=== PATIENT | male | born 1970 | race Caucasian/White ===

== ENCOUNTER 2017-07-09 11:46 | Emergency (ER) | payer OTHER, SELFPAY ==
[2017-07-09] MEDS ORDERED: METHYLPREDNISOLONE 125 MG INJ ONE (12:40)
[2017-07-09] MEDS ORDERED: ALBUTEROL 2.5 MG/3 ML NEB SOL ONE ×2 (12:40→14:35)
[2017-07-09] MEDS ORDERED: IPRATROPIUM BROM 0.5MG/2.5ML ONE (12:41)
--- NOTE | 2017-07-09 12:43 | RAD REPORT ---
EXAM DESCRIPTION: RAD - Chest Single View - 07/09/2017 12:38 pm CLINICAL HISTORY: Cough, shortness of breath COMPARISON: None. TECHNIQUE: AP portable chest image was obtained 1234 hours . FINDINGS: Lungs are clear. Heart and vasculature are normal. No measurable pleural effusion and no p neumothorax. No gross bony abnormality seen. No acute aortic findings suspected. IMPRESSION: No acute cardiopulmonary process.
--- NOTE | 2017-07-09 13:07 | RAD REPORT ---
EXAM DESCRIPTION: CT - Soft Tissue Neck Wo Contr CLINICAL HISTORY: Difficulty swallowing. COMPARISON: None. TECHNIQUE All CT scans are performed using dose optimization technique as appropriate and may includ e automated exposure control or mA/KV adjustment according to patient size. FINDINGS: The exam is very limited due to lack of IV contrast. Nasopharyngeal tissues are normal in appearance. Fossa Rosenmller are normal. Parapharyngeal fat triangles are symmetric. Tongue base structures are normal. Fluid is noted in both mastoid air cells, greater on the left. Soft tissue measuring roughly 16 x 19 mm is noted in the region of the left piriform sinus. The left piriform sinuses not well aerated. This is not well assessed due to lack of IV contrast. Few mildly prominent lymph nodes are seen along both jugular chains. IMPRESSION: Examination is limited due to lack of intravenous contrast material. Ill-defined soft tissue is identified in the left piriform sinus measuring approximately 16 x 19 mm. Given the limitations of this examination, advise followup direct visualization of this region. Bilateral mastoid fluid, greater on the left, suggesting mastoiditis.
[2017-07-09 13:23] LABS: Absolute Lymphocytes (CBC) 2.6 K/uL (0.7-4.9); Absolute Neutrophil 8.3 K/uL (1.8-8.0); Eosinophils % 2.3 % (0-4.4); Hematocrit 52.8 % (39.6-49.0); Lymphocytes % 21.1 % (15.3-44.8); MCH 30.8 pg (27.0-35.0); MCV 92.6 fL (80-100); MPV 9.2 fL (7.6-11.3); Monocytes % 8.1 % (3.3-12.3)
[2017-07-09 13:33] LABS: BUN Blood Urea Nitrogen 10 mg/dL (6-20); Bicarbonate 29 mEq/L (21-31); Glomerular Filtration Rate > 90 mL/min (=/>90); Glucose Level 94 mg/dL (65-120); Potassium 4.3 mEq/L (3.6-5.0); Sodium Level 139 mEq/L (135-145)
[2017-07-09] MEDS ORDERED: CLINDAMYCIN 600MG/D5W 600 MG/50 ML BAG IV ONE (14:01)
[2017-07-09 14:24] LABS: Urine Blood 1+ (NEG); Urine Glucose NEGATIVE (NEG); Urine Protein NEGATIVE (NEG); Urine Specific Gravity 1.025 (1.005-1.030)
--- NOTE | 2017-07-09 15:23 | ER ---
Nurse's Notes [facility] Name: Akin Pugh Age: 47 yrs Sex: Male : 1970 Arrival Date: 07/09/2017 Time: 11:49 Bed 20 Private MD: Diagnosis: Asthma;Mass of Hypopharynx Presentation: 07/09 11:57 Presenting complaint: states: he is having a hard time breathing, started a couple tw2 of days ago, thought it was my asthma, pt states "i have a knot in my throat, it hurts to swallow and my ear hurts". Transition of care: patient was not received from another setting of care. Onset of symptoms was July 09, 2017. Care prior to arrival: None. 11:57 Method Of Arrival: Ambulatory tw2 11:57 Acuity: PAO 3 tw2 Historical: - Allergies: 11:59 Iodine; tw2 - PMHx: 11:59 Asthma; tw2 - PSHx: 11:59 Appendectomy; Knee surgery; tw2 - Immunization history:: Adult Immunizations up to date. - Social history:: Smoking status: Patient uses tobacco products, smokes one pack cigarettes per day. - Family history:: not pertinent. - Hospitalizations: : No recent hospitalization is reported. Screenin:44 Abuse screen: Denies threats or abuse. Denies injuries from another. Nutritional ch screening: No deficits noted. Tuberculosis screening: No symptoms or risk factors identified. Fall Risk None identified. Assessment: 12:15 Reassessment: Patient appears in no apparent distress at this time. PT STATES HE DOES ch NOT WANT THE TECH TO START HIS IV BECAUSE SHE WENT TOO FAR BACK WITH THE FLU SWAB. I WILL START PT IV. 12:44 General: Appears in no apparent distress. comfortable, Behavior is calm, cooperative, ch appropriate for age. Pain: Complains of pain in throat Pain currently is 7 out of 10 on a pain scale. Cardiovascular: Heart tones S1 S2 present Rhythm is regular. Respiratory: Airway is patent Respiratory effort is even, unlabored, Breath sounds are coarse bilaterally. Breath sounds with wheezes. Derm: Skin is pink, warm \\T\\ dry. 13:03 Reassessment: PT RETURNED FROM CT. 13:19 Reassessment: Patient appears in no apparent distress at this time. No changes from previously documented assessment. Patient and/or family updated on plan of care and expected duration. Pain level reassessed. Patient is alert, oriented x 3, equal unlabored respirations, skin warm/dry/pink. 14:28 Reassessment: Patient appears in no apparent distress at this time. Patient and/or ch family updated on plan of care and expected duration. Pain level reassessed. Patient is alert, oriented x 3, equal unlabored respirations, skin warm/dry/pink. erp in room discussing plan of care with pt. pt and family verb understanding. pt tolerated iv antibiotic well. 14:50 Reassessment: Patient appears in no apparent distress at this time. Patient and/or ch family updated on plan of care and expected duration. Pain level reassessed. Patient is alert, oriented x 3, equal unlabored respirations, skin warm/dry/pink. family calls office to schedule and appointment. the office states they have no appointments available. family member tells me this angrily, and states "you need to fix this." i tell pt and family I will notify my physician and try to contact the office in a few minuets. 14:58 Reassessment: Patient appears in no apparent distress at this time. I contact Dr. Basilio office to attempt to schedule an appointment. physician is fully booked for tomorrow. awaiting dr basilio to return page and approve seeing pt tomorrow in his office instead of a transfer. pt and family verb understanding of wait. 15:14 Reassessment: Patient appears in no apparent distress at this time. Patient and/or ch family updated on plan of care and expected duration. Pain level reassessed. Patient is alert, oriented x 3, equal unlabored respirations, skin warm/dry/pink. awaiting return call from Dr. Basilio. 15:43 Reassessment: Patient appears in no apparent distress at this time. No changes from previously documented assessment. Patient and/or family updated on plan of care and expected duration. Pain level reassessed. Patient is alert, oriented x 3, equal unlabored respirations, skin warm/dry/pink. Dr. Basilio returns our call, pt is scheduled for 1100 tomorrow. pt and family verb understanding. Vital Signs: 11:59 BP 145 / 94; Pulse 90; Resp 18; Temp 98.7(O); Pulse Ox 97% on R/A; Weight 108.86 kg tw2 (R); Height 6 ft. 0 in. (182.88 cm); Pain 8/10; 13:22 BP 143 / 76; Pulse 71; Resp 16; Pulse Ox 99% on Nebulizer Mask; ch 14:28 BP 132 / 64; Pulse 89; Resp 14; Temp 98.7(O); Pulse Ox 99% on R/A; Pain 6/10; ch 15:44 BP 148 / 71; Pulse 81; Resp 16; Temp 98.2; Pulse Ox 99% on R/A; Pain 0/10; ch 11:59 Body Mass Index 32.55 (108.86 kg, 182.88 cm) tw2 ED Course: 11:49 Patient arrived in ED. rg4 11:58 Triage completed. tw2 11:59 Arm band placed on. tw2 12:08 Jason Anderson MD is Attending Physician. rn 12:24 Flu and/or RSV swab sent to lab. Strep swab sent to lab. tm3 12:36 X-ray completed. Portable x-ray completed in exam room. Patient tolerated procedure ml well. 12:38 XRAY Chest (1 view) In Process Unspecified. EDMS 12:39 Xiomy Vásquez, RN is Primary Nurse. ch 12:44 Patient has correct armband on for positive identification. Placed in gown. Bed in low ch position. Call light in reach. Side rails up X 1. 12:44 No provider procedures requiring assistance completed. ch 12:53 CT completed. Patient tolerated procedure well. Patient moved to CT via wheelchair. sj Patient moved back from CT. 12:55 Soft Tissue Neck Wo Contr In Process Unspecified. EDMS 13:20 Inserted saline lock: 20 gauge in right hand, using aseptic technique. Blood collected. ch 15:44 Pulse ox on. NIBP on. Warm blanket given. ch 15:44 IV discontinued, intact, bleeding controlled, No redness/swelling at site. Pressure ch dressing applied. Administered Medications: 12:50 Drug: SOLU-Medrol 125 mg Route: IVP; Site: right hand; ch 14:10 Follow up: Response: No adverse reaction; Marked relief of symptoms ch 12:50 Drug: Albuterol - atroVENT (3:1) (2.5 mg - 0.5 mg) 3 ml Route: Nebulizer; ch 14:10 Follow up: Response: No adverse reaction; Marked relief of symptoms 14:09 Drug: Clindamycin 600 mg Route: IVPB; Infused Over: 30 mins; Site: right hand; 14:45 Follow up: IV Status: Completed infusion 14:34 Drug: Albuterol 2.5 mg Route: Inhalation; iw Outcome: 15:22 Discharge ordered by . rn 15:46 Discharged to home ambulatory, with family. 15:46 Condition: improved 15:46 Discharge instructions given to patient, family, Instructed on discharge instructions, follow up and referral plans. no drinking with medication, medication usage, Demonstrated understanding of instructions, follow-up care, medications, Prescriptions given X 3. 15:46 Patient left the ED. Signatures: Dispatcher [employer] Xiomy Beaulieu RN JEAN Mosqueda, Ramu tm3 Kofi, Flor Alanis RN JEAN iw Loli Bruce Roman, MD MD rn Wise, JEAN Holguin RN tw2 Mavis Dahl rg4 Corrections: (The following items were deleted from the chart) 12:00 11:57 Presenting complaint: states: he is having a hard time breathing, started a tw2 couple of days ago, thought it was my asthma tw2
--- NOTE | 2017-07-09 15:23 | EDPHYS ---
Physician Documentation [facility] Name: Akin Pugh Age: 47 yrs Sex: Male : 1970 Arrival Date: 07/09/2017 Time: 11:49 Bed 20 Private MD: ED Physician Jason Anderson HPI: 07/09 12:50 This 47 yrs old Male presents to ER via Ambulatory with complaints of rn Breathing Difficulty. 12:50 The patient has shortness of breath at rest, with light activity. Onset: The rn symptoms/episode began/occurred 4 day(s) ago. Duration: The symptoms are continuous. The patient's shortness of breath is aggravated by exertion, light activity. Severity of symptoms: At their worst the symptoms were moderate in the emergency department the symptoms are unchanged. The patient has experienced similar episodes in the past. Reports hx of asthma, + sob and trouble breathing for 4 days, slowly getting worse, no fever, + non-productive cough, feel "knot in throat". . Historical: - Allergies: 11:59 Iodine; tw2 - PMHx: 11:59 Asthma; tw2 - PSHx: 11:59 Appendectomy; Knee surgery; tw2 - Immunization history:: Adult Immunizations up to date. - Social history:: Smoking status: Patient uses tobacco products, smokes one pack cigarettes per day. - Family history:: not pertinent. - Hospitalizations: : No recent hospitalization is reported. ROS: 12:50 Constitutional: Negative for fever, chills, and weight loss, Eyes: Negative for injury, rn pain, redness, and discharge, Neck: Negative for injury, pain, and swelling, Cardiovascular: Negative for chest pain, palpitations, and edema, Respiratory: Negative for pleuritic chest pain Abdomen/GI: Negative for abdominal pain, nausea, vomiting, diarrhea, and constipation, MS/Extremity: Negative for injury and deformity, Skin: Negative for injury, rash, and discoloration, Neuro: Negative for headache, weakness, numbness, tingling, and seizure. Exam: 12:50 Constitutional: This is a well developed, well nourished patient who is awake, alert, rn and in no acute distress. Head/Face: Normocephalic, atraumatic. Eyes: Pupils equal round and reactive to light, extra-ocular motions intact. Lids and lashes normal. Conjunctiva and sclera are non-icteric and not injected. Cornea within normal limits. Periorbital areas with no swelling, redness, or edema. ENT: Nares patent. No nasal discharge, no septal abnormalities noted. Oropharynx with no redness, swelling, or masses, exudates, or evidence of obstruction, uvula midline. Mucous membranes moist. UNclear if stridor or transmitted from lower lungs Neck: + non-tender cervical LAD Cardiovascular: Regular rate and rhythm with a normal S1 and S2. No gallops, murmurs, or rubs. Normal PMI, no JVD. No pulse deficits. Respiratory: Poor inspiratory air movement, no wheezing, mild tachypnea Abdomen/GI: Soft, non-tender, with normal bowel sounds. No distension or tympany. No guarding or rebound. No evidence of tenderness throughout. MS/ Extremity: Pulses equal, no cyanosis. Neurovascular intact. Full, normal range of motion. Equal circumference. Neuro: Awake and alert, GCS 15, oriented to person, place, time, and situation. Cranial nerves II-XII grossly intact. Motor strength 5/5 in all extremities. Sensory grossly intact. Vital Signs: 11:59 BP 145 / 94; Pulse 90; Resp 18; Temp 98.7(O); Pulse Ox 97% on R/A; Weight 108.86 kg tw2 (R); Height 6 ft. 0 in. (182.88 cm); Pain 8/10; 13:22 BP 143 / 76; Pulse 71; Resp 16; Pulse Ox 99% on Nebulizer Mask; ch 14:28 BP 132 / 64; Pulse 89; Resp 14; Temp 98.7(O); Pulse Ox 99% on R/A; Pain 6/10; ch 15:44 BP 148 / 71; Pulse 81; Resp 16; Temp 98.2; Pulse Ox 99% on R/A; Pain 0/10; ch 11:59 Body Mass Index 32.55 (108.86 kg, 182.88 cm) tw2 MDM: 12:08 Patient medically screened. rn 14:31 ED course: Consulted with Dr. Cameron at [facility], ENT, states doesn't need emergent rn review, recommended outpt f/u tomorrow in his clinic, patient has improved now with time, steroids, and neb treatments, no stridor, improved air movement, seems much more comfortable, states feels better, will dc home with steroids/inhaler/abx and ENT f/u tomorrow. . 15:21 Differential diagnosis: asthma, pharyngeal mass, hypopharynx mass. Data reviewed: vital rn signs, nurses notes, lab test result(s), radiologic studies, CT scan, plain films, and as a result, I will discharge patient. Counseling: I had a detailed discussion with the patient and/or guardian regarding: the historical points, exam findings, and any diagnostic results supporting the discharge/admit diagnosis, lab results, radiology results, the need for outpatient follow up, to return to the emergency department if symptoms worsen or persist or if there are any questions or concerns that arise at home. Response to treatment: the patient's symptoms have markedly improved after treatment, and as a result, I will discharge patient. 07/09 12:14 Order name: CBC with Diff; Complete Time: 13:31 07/09 12:14 Order name: Basic Metabolic Panel; Complete Time: 13:48 07/09 12:14 Order name: Strep; Complete Time: 13:13 rn 07/09 12:14 Order name: Flu; Complete Time: 13:13 rn 07/09 12:59 Order name: Throat Culture EDMS 07/09 13:44 Order name: Urine Dipstick--Ancillary (enter results) 07/09 12:14 Order name: IV Start; Complete Time: 13:23 rn 07/09 12:14 Order name: XRAY Chest (1 view); Complete Time: 13:13 07/09 12:18 Order name: Soft Tissue Neck Wo Contr; Complete Time: 13:13 EDMS Administered Medications: 12:50 Drug: SOLU-Medrol 125 mg Route: IVP; Site: right hand; ch 14:10 Follow up: Response: No adverse reaction; Marked relief of symptoms ch 12:50 Drug: Albuterol - atroVENT (3:1) (2.5 mg - 0.5 mg) 3 ml Route: Nebulizer; ch 14:10 Follow up: Response: No adverse reaction; Marked relief of symptoms ch 14:09 Drug: Clindamycin 600 mg Route: IVPB; Infused Over: 30 mins; Site: right hand; ch 14:45 Follow up: IV Status: Completed infusion ch 14:34 Drug: Albuterol 2.5 mg Route: Inhalation; Disposition: 07/09/17 15:22 Discharged to Home. Impression: Asthma, Mass of Hypopharynx. - Condition is Stable. - Discharge Instructions: Asthma, Acute Bronchospasm. - Prescriptions for Prednisone 20 mg Oral Tablet - take 3 tablet by ORAL route once daily for 5 days; 15 tablet. Zithromax Z- Will 250 mg Oral Tablet - take 1 tablet by ORAL route as directed for 5 days Day 1 - take two (2) tablets one time. Day 2, 3, 4 , 5 take one (1) tablet once daily.; 6 tablet. Albuterol Sulfate 90 mcg/actuation - inhale 1-2 puff by INHALATION route every 4-6 hours; 1 Inhaler. - Medication Reconciliation Form, Thank You Letter, Antibiotic Education, Prescription Opioid Use form. - Follow up: Private Physician; When: 1 - 2 days; Reason: Recheck today's complaints, Re-evaluation by your physician. - Problem is new. - Symptoms have improved. Signatures: Dispatcher [employer] [facility] Xiomy Vásquez RN RN Flor De La O RN RN Jason Anderson MD MD rn Wise, JEAN Holguin RN tw2 Corrections: (The following items were deleted from the chart) 12:19 12:15 Soft Tissue Neck W/Contr+CT.RAD.BRZ ordered. [facility] 13:47 12:50 Constitutional: This is a well developed, well nourished patient who is awake, rn alert, and in no acute distress. Head/Face: Normocephalic, atraumatic. Eyes: Pupils equal round and reactive to light, extra-ocular motions intact. Lids and lashes normal. Conjunctiva and sclera are non-icteric and not injected. Cornea within normal limits. Periorbital areas with no swelling, redness, or edema. ENT: Nares patent. No nasal discharge, no septal abnormalities noted. Oropharynx with no redness, swelling, or masses, exudates, or evidence of obstruction, uvula midline. Mucous membranes moist. No stridor. Neck: + non-tender cervical LAD Cardiovascular: Regular rate and rhythm with a normal S1 and S2. No gallops, murmurs, or rubs. Normal PMI, no JVD. No pulse deficits. Respiratory: Poor inspiratory air movement, no wheezing, mild tachypnea Abdomen/GI: Soft, non-tender, with normal bowel sounds. No distension or tympany. No guarding or rebound. No evidence of tenderness throughout. MS/ Extremity: Pulses equal, no cyanosis. Neurovascular intact. Full, normal range of motion. Equal circumference. Neuro: Awake and alert, GCS 15, oriented to person, place, time, and situation. Cranial nerves II-XII grossly intact. Motor strength 5/5 in all extremities. Sensory grossly intact. rn
[2017-07-09 15:56] VITALS: O2SAT 99
[2017-07-09 15:59] VITALS: BP 148/71; TEMP 98.2
== END 2017-07-09 15:46 | disposition home or self-care (01) ==
LOC: ER 11:46
DX: J45.909 Unspecified asthma, uncomplicated (principal); J39.2 Other diseases of pharynx; F17.210 Nicotine dependence, cigarettes, uncomplicated; Z91.048 Other nonmedicinal substance allergy status
CPT/HCPCS: 36415; 70490; 71045; 80048; 81003; 85025; 87070; 87081; 87804; 94640; 96365; 96375; 99285; J2930

== ENCOUNTER 2017-07-12 07:23 | Inpatient (IN) | payer OTHER, SELFPAY ==
--- NOTE | 2017-07-11 15:30 | EKG ---
Test Date: 2017-07-11 Test Time: 09:43:19 Career Counselor: AUDI MEASUREMENT RESULTS: Intervals: Rate: 77 NM: 138 QRSD: 74 QT: 362 QTc: 409 [place]: P: 54 NM: 138 QRS: 33 T: 34 INTERPRETIVE STATEMENTS: Normal sinus rhythm with sinus arrhythmia Normal ECG Compared to ECG 12/31/1999 22:25:00 Sinus tachycardia no longer present Electronically Signed On 07-11-17 15:28:56 CDT by Mayito Cota
[2017-07-12] MEDS ORDERED: Ringers Lactate 1,000 ML IV ONE (07:29)
[2017-07-12] MEDS ORDERED: PROPOFOL 200 MG/20 ML VIAL IV ONE ×2 (07:50→09:16)
[2017-07-12] MEDS ORDERED: MIDAZOLAM HCL 2 MG/2 ML INJ ONE ×2 (07:50→10:24)
[2017-07-12] MEDS ORDERED: LIDOCAINE 2% MPF 5 ML VIAL ONE (07:50)
[2017-07-12] MEDS ORDERED: ROCURONIUM 50 MG/5 ML VIAL IV ONE (07:50)
[2017-07-12] MEDS ORDERED: FENTANYL CITR 250 MCG/5 ML ONE (07:50)
[2017-07-12] MEDS ORDERED: EPINEPHRINE/PF 1 MG/ML AMP ONE (08:01)
[2017-07-12] MEDS ORDERED: LIDOCAINE 1% W/EPI 1:100,000 MDV 50 ML VIAL ONE (08:01)
[2017-07-12] MEDS ORDERED: EPHEDRINE SULF 50 MG/5 ML SYR ONE (08:35)
[2017-07-12] MEDS ORDERED: SUCCINYLCHOLINE 20 MG/ML (10 ML) IV ONE (08:54)
[2017-07-12] MEDS: Ringers Lactate 1,000 ML IV ONE ×2 (09:00→09:18)
--- NOTE | 2017-07-12 09:25 | P.BOP ---
Preoperative diagnosis: laryngeal tumor, airway obstruction Postoperative diagnosis: same Primary procedure: tracheotomy, DL with biospy [employer] Route Aide: NONE,NONE Estimated blood loss: 5ml Specimen: left supraglottis Anesthesia: General Implants: Radha Herrera CFDyan Transferred to: Recovery Room Condition: Fair
[2017-07-12] MEDS ORDERED: NALOXONE 0.4 MG/ML VIAL ONE (09:49)
[2017-07-12] MEDS: MIDAZOLAM HCL 2 MG/2 ML INJ ONE ×2 (09:59→10:05)
--- NOTE | 2017-07-12 10:15 | RAD REPORT ---
EXAM DESCRIPTION: RAD - Chest Single View - 07/12/2017 10:09 am CLINICAL HISTORY: Status post tracheostomy. COMPARISON: 07/09/2017 FINDINGS: Portable technique limits examination quality. The lungs are grossly clear. The heart is normal in size. No displaced fractures.Tracheostomy tube tamayo s been placed with its tip above the eusebio.
[2017-07-12] MEDS: D5.45NS W/KCL 20MEQ 1,000 ML IV SCH ×2 (10:49→19:56)
[2017-07-12] MEDS: LORazepam 2 MG/ML VIAL IV PRN ×2 (11:24→22:15)
[2017-07-12] MEDS: NICOTINE 21 MG/PAT TD SCH (11:24)
[2017-07-12] MEDS: IPRATROPIUM BROM 0.5MG/2.5ML NEB PRN (17:22)
[2017-07-12] MEDS: ALBUTEROL 2.5 MG/3 ML NEB SOL NEB PRN (17:22)
--- NOTE | 2017-07-12 18:22 | P.CNS ---
Date of Consult: 07/12/17 Reason for Consult: Medical management Requesting Physician: Keya Pardo Primary Care Provider: None Chief Complaint: Laryngeal tumor History of Present Illness: 47-year-old male had surgery today for biopsy of laryngeal tumor and tracheostomy. I was asked by ENT to evaluate his chronic medical conditions. The patient 1st presented to ENT with changes in his voice. He had felt a knot in his throat. The change in voice was care to rise with coarseness. This had lasted for about 2 days. He was actually seen in the emergency room on 07/09. Patient was found to have a laryngeal mass on CT scan. He was referred up to [place]. He was not able to the evaluated up in [place] due to upfront cost. Patient is without insurance. Patient decided to see ENT locally. The patient was evaluated. Squamous-cell carcinoma was suspected. Recommendation is for the patient to have biopsy of laryngeal tumor and for a tracheostomy as the patient would require radiation for suspected squamous cell carcinoma T3. Postsurgery patient is doing well. Patient reports no significant medical history. Patient does smoke regularly. He plans to quit. Patient reports a history of asthma. Allergies iodine Allergy (Verified 07/11/17 09:32) Unknown Home Medications: Ibuprofen 5 tab PO Q4HP PRN 07/11/17 - Past Medical/Surgical History Diabetic: No -: Asthma -: Tobacco abuse -: Knee surgery -: Appendectomy Psychosocial/ Personal History: Patient smokes regularly but plans to quit. - Family History Father Medical History: Heart disease Mother Medical History: Cancer, Other (see notes) (Asthma) - Social History Smoking Status: Current every day smoker, Heavy Tobacco smoker (>10 cigarettes/ day) Counseled patient to stop smoking for: less than 10 minutes Smoking therapy provided: Yes Patient receptive to therapy: Yes Alcohol use: No CD- Drugs: No Place of Residence: Home Review of Systems General: As per HPI Eyes: Unremarkable ENT: As per HPI Respiratory: As per HPI Cardiovascular: Unremarkable Gastrointestinal: Unremarkable Genitourinary: Unremarkable Musculoskeletal: Unremarkable Integumentary: Unremarkable Neurological: Change in Speech, As per HPI Lymphatics: Unremarkable Physical Examination Temp Pulse Resp BP Pulse Ox 98 F 90 16 146/89 H 95 07/12/17 10:36 07/12/17 15:00 07/12/17 15:00 07/12/17 15:00 07/12/17 15:00 General: Alert, In no apparent distress, Oriented x3, Cooperative HEENT: Atraumatic, Normocephalic, PERRLA, Mucous membr. moist/pink Neck: Other (Tracheostomy in place ) Respiratory: Expiratory wheezes (Mild wheezing) Cardiovascular: Normal pulses, Regular rate/rhythm Gastrointestinal: Normal bowel sounds, Soft and benign, Non-distended, No tenderness, No masses, No rebound, No guarding Musculoskeletal: No erythema, No tenderness, No warmth Integumentary: No tenderness/swelling, No erythema, No warmth, No cyanosis Neurological: Normal speech, Normal strength at 5/5 x4 extr, Normal tone, Normal affect - Problems (1) Laryngeal neoplasm Current Visit: Yes Status: Acute Plan: Patient had biopsy today. I have discussed the case in detail with ENT. 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 This would require radiation. Therefore patient has tracheostomy. Social work will need to be involved to help patient get connected with a PCP and with the Cancer Center here locally. The patient will remain in the hospital likely through Saturday in order for the tracheostomy to heal and mature. Patient will need to learn how to suction. (2) Tobacco abuse Current Visit: Yes Status: Chronic Plan: Patient desires to quit. Patient given nicotine patch. (3) Asthma Current Visit: Yes Status: Chronic Plan: Patient with history of asthma. Provide medication. Qualifiers: Asthma severity: mild Asthma persistence: intermittent Asthma complication type: uncomplicated Qualified Code(s): J45.20 - Mild intermittent asthma, uncomplicated Time Spent Managing Pts care (In Minutes): 55
[2017-07-12] MEDS: ARFORMOTEROL TARTRATE 15 MCG/2 ML VIAL.NEB NEB SCH (20:13)
[2017-07-13] MEDS: D5.45NS W/KCL 20MEQ 1,000 ML IV SCH ×2 (03:40→17:04)
[2017-07-13 06:09] LABS: Absolute Lymphocytes (CBC) 2.3 K/uL (0.7-4.9); Absolute Monocytes 1.4 K/uL (0.1-1.3); Absolute Neutrophil 13.1 K/uL (1.8-8.0); Basophils % 0.1 % (0-1.3); Eosinophils % 0.7 % (0-4.4); Hematocrit 47.1 % (39.6-49.0); Lymphocytes % 13.4 % (15.3-44.8); MCH 31.4 pg (27.0-35.0); MCV 91.6 fL (80-100); MPV 9.2 fL (7.6-11.3); Monocytes % 8.1 % (3.3-12.3); RBC Red Blood Cell Count 5.14 M/uL (4.33-5.43)
[2017-07-13 06:20] LABS: BUN Blood Urea Nitrogen 8 mg/dL (6-20); Bicarbonate 27 mEq/L (21-31); Glucose Level 113 mg/dL (65-120); Potassium 3.8 mEq/L (3.6-5.0); Sodium Level 138 mEq/L (135-145)
[2017-07-13] MEDS: ARFORMOTEROL TARTRATE 15 MCG/2 ML VIAL.NEB NEB SCH ×2 (07:33→19:25)
[2017-07-13] MEDS: ENOXAPARIN 30 MG/0.3 ML SQ SCH (09:23)
[2017-07-13] MEDS: NICOTINE 21 MG/PAT TD SCH (09:23)
[2017-07-13 10:02] LABS: Absolute Lymphocytes (CBC) 0.9 K/uL (0.7-4.9); Absolute Neutrophil 14.1 K/uL (1.8-8.0); Basophils % 0.7 % (0-1.3); Eosinophils % 1.5 % (0-4.4); Hematocrit 47.4 % (39.6-49.0); Lymphocytes % 5.5 % (15.3-44.8); MCH 31.1 pg (27.0-35.0); MCV 91.7 fL (80-100); MPV 9.2 fL (7.6-11.3); Monocytes % 6.3 % (3.3-12.3); RBC Red Blood Cell Count 5.17 M/uL (4.33-5.43)
[2017-07-13 10:06] LABS: Bicarbonate 27 mEq/L (21-31); Glucose Level 116 mg/dL (65-120); Potassium 3.6 mEq/L (3.6-5.0); Sodium Level 138 mEq/L (135-145)
[2017-07-13 10:09] LABS: ALT/SGPT 27 IU/L (10-60); AST/SGOT 17 IU/L (10-42); Albumin 3.8 g/dL (3.2-5.5); Alkaline Phosphatase 98 IU/L (42-121); BUN Blood Urea Nitrogen 8 mg/dL (6-20); Bilirubin Total 1.1 mg/dL (0.3-1.2); Protein, Total 6.9 g/dL (6.0-8.3)
[2017-07-13] MEDS ORDERED: HYDRALAZINE HCL 20 MG/ML VIAL IV PRN (10:41)
[2017-07-13 11:29] LABS: Blood Morphology Comment NOT SEEN (NOT SEEN); Platelet Estimate ADEQ; Urine White Blood Cell Casts OK
--- NOTE | 2017-07-13 12:33 | P.PN ---
Date of Service: 07/13/17 POD 1 trach/DL/Bx. Anxious overnight. Trouble swallowing even jello. No bleeding reported. Nurse reports he is still having a lot of secretions and requires assistance to suction. NAD. Sitting up in chair. HR low 100s. BP 150s/90s. SaO2 92-95% on RA. [address] with sutures/umbilical ties. Mild bloody crust, bloody secretions. Unable to phonate with finger occlusion and significant back pressure with release. Patient's affect is mildly depressed. Labs: Elevated white count with L shift. Lactate WNL. CXR post-op - no Ptx. Path: pending A/P: 1. New dx H&N Ca - clinically T3. No obvious LN on non-contrasted CT neck. Further outpatient staging with PET/CT can be considered if desired by [facility]. Patient is asking about starting treatment. Discussed with patient and that path results will need to be obtained. He will also require dental evaluation with possible extractions. I will gather names of recommended dentists for the patient. Discussed the importance of dental health and performing extractions prior to XRT to reduce risks of ORN. Plan out-patient referral to [facility] and [facility]. Evaluations can be done concurrently with dental but radiation itself cannot begin until 2-3 weeks after the dental extractions. 2. New tracheotomy - doing well from surgical standpoint. Appreciate case management/SW for supplies/suction. Start RT teaching for trach care to prepare patient for discharge. Will plan for trache downsize to 6 CFS on Saturday - this should facilitate swallowing and will likely allow phonation. Will plan to consult CHAIR for PMV after trach change if appropriate. 3. Depression risk - patient's with H&N Ca have very high incidence of concurrent depression with diagnosis and during treatment. Given witnessed anxiety and affect, I recommend starting some depression medication and discussed this with the patient. He is amenable to start medications. Lexapro 10mg daily 4. DVT prophylaxis - given Ca dx and tobacco use, recent surgery and age, I have started Lovenox and SCDs. He can ambulate as tolerated 5. Tobacco dependence - patient started on Nicotine patch 21mg daily. Strongly recommend tobacco cessation; patient appear to understand importance. 6. Tachycardia, hypertension. Defer to hospitalist service for management. Spoke with team - they want to r/o sepsis due to elevated white count before treating. Beta hunter considered but in light of hx of asthma, should be used with caution.
[2017-07-13] MEDS: IPRATROPIUM BROM 0.5MG/2.5ML NEB PRN (13:47)
[2017-07-13] MEDS: ALBUTEROL 2.5 MG/3 ML NEB SOL NEB PRN (13:47)
--- NOTE | 2017-07-13 13:48 | PN ---
Date of Progress Note: 07/13/2017 Subjective: The patient is seen and examined, chart reviewed, and case discussed with RN. The patie nt is feeling okay, not as anxious as yesterday. Breathing almaguer doing okay. Review of Systems: Negative except as above. Medications: Reviewed. Physical Examination: Vital Signs: Temperature 98.4, heart rate 92, blood pressure 133/91, respirations 23, and O2 saturat ion 91% on room air. General: awake, alert, in no acute distress. CV: S1, S2. No murmurs. Regular rate and rhythm. Peripheral pulses present. Respiratory: Moving air well bilaterally. No wheezing. Abdomen: Soft, nontender, nondistended. Positive bowel sounds. Extremities: No clubbing, cyanosis, or edema. Neurologic: Nonfocal. Neck: Trach tube in place. Laboratory Data: Sodium 138, potassium 3.6, chloride 105, CO2 27, BUN 8, creatinine 0.57, glucose 11 6, lactate 12, and calcium 9. WBC 16.4, H and H 16.1, 47.4, platelets 234, and neutrophils 86%. 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 The patient has had a tracheostomy. 2.Nicotine dependence with cigarette smoking. Counseled. Nicotine patch. 3.Intermittent asthma. Albuterol as needed. 4.Elevated blood pressure without diagnosis of hypertension. Blood pressure is improved, likely sec ondary to pain and anxiety. We will provide p.r.n. medications. Plan: [facility] with [facility] and PCP. Will likely need to be set up with radiation as per ENT. /LILLIAN Voice ID: [id number] Report ID: [id number]
[2017-07-13] MEDS ORDERED: NA CHLORIDE 0.9% 500 ML IV ONE (17:04)
--- NOTE | 2017-07-13 17:12 | OP ---
Date of Procedure: 07/12/2017 Surgeon: Keya Pardo MD Processing Engineer: None. 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 Procedure: Planned tracheostomy and direct laryngoscopy with biopsies. Indication For Procedure: Mr. Pugh is a 47-year-old who presented to the clinic on the day following a trip to the emergency room for shortness of breath and difficulty breathing. In the emergency nima m, he underwent a non-contrasted CT scan of the neck due to iodine allergy and was noted to have a la rge approximately 2 cm tumor in the supraglottis or hypopharynx. Due to inability to obtain care at scheduled followup with the ENT [facility] due to finances, he was seen urgently in the clinic and under went a fiberoptic laryngoscopy, which demonstrated exophytic tumor of the left hemilarynx encompassin g the glottis and supraglottis including the laryngeal surface of the epiglottis with critical narrow ing of the glottic opening. The risks, benefits, and alternatives were discussed with the patient wh o agreed to proceed. Description Of Procedure: The patient was brought to the operating room. He was placed under genera l anesthesia and intubated with the GlideScope on the first attempt. Following this, the patient was positioned for tracheostomy. A shoulder roll was placed and the neck was extended. The neck was pr epped with Betadine and draped in a sterile fashion. A 2-cm incision was made approximately 2 finger breadths above the sternal notch. The skin and subcutaneous tissues were divided and the strap muscl es were identified. The strap muscles were along the linea alba and retracted laterally. Palpation of the neck in this area revealed a thick thyroid isthmus overlying the anterior tracheal w all. After careful palpation and consideration of options, the thyroid isthmus was elevated off the anterior wall and divided using Bovie electrocautery, allowing the thyroid to fall laterally into the surgical field. This allowed very good visualization of the patient's trachea. After confirming th e plan with the Anesthesia and scrub team, an incision was made between the first and second tracheal rings and secretions and a small amount of blood were suctioned. The incision was enlarged using cu rved scissors. The endotracheal tube was identified through the tracheostomy incision and was slowly withdrawn. A size 8 Shiley cuffed tracheostomy tube was passed without difficulty through the trach eostomy incision and placement was confirmed by chest rise and return of CO2 through the anesthesia c ircuit. The tracheostomy tube was then secured in a four-point fashion with 2-0 silk sutures and an umbilical tie was placed securely around the neck. The endotracheal tube was removed from the mouth by the anesthesiologist and preparations were begun for the direct laryngoscopy. A Ramesh supraglo ttic and [employer] scopes were used to perform the direct laryngoscopy. The epiglottis was very f loppy and photodocumentation was difficult. The large cup forceps were used to collect several speci mens from the left supraglottis including the laryngeal base of the epiglottis, the aryepiglottic fol ds. The true vocal cord was not well visualized due to the degree of tumor. These biopsy specimens were sent to Pathology for permanent analysis. The instrumentation and tooth guard were removed from the patient's mouth. The procedure was concluded. Disposition: Due to new tracheostomy, the patient will be placed under ICU observation for 24 hours. If he is doing well, we will plan to transfer him to the floor, but he will require a total of 4 to 5 days of inpatient care to allow maturation of the tracheotomy fistula, and I will plan to perform his first trach change on Saturday or Saturday. During the intervening time, we will engage in trach eostomy care teaching for the patient and his family. We will also be making arrangements through replaced by [facility] and social welfare research worker for emergency Medicaid application and arrangement for a home suction m achine, replacement tracheostomy tube, and tracheostomy care supplies, including gauze, rubber gloves , tubings, suction catheters, saline, etc. Given the patient's stage of tumor, he will likely requir e radiation and chemotherapy and outpatient referral to Dr. Jose as well as the medical oncology group at [facility] will be initiated. The patient will require a dental evaluation prior to radiation treatment and a list of appropriate dentists will be given to the patient after co nsultation with oral surgery colleagues. FIGUEROA/LILLIAN Voice ID: [id number] Report ID: [id number]
[2017-07-13] MEDS: HYDROCODONE/APAP 7.5/325 MG TAB PO PRN (17:46)
[2017-07-14] MEDS: D5.45NS W/KCL 20MEQ 1,000 ML IV SCH ×2 (03:57→13:20)
[2017-07-14] MEDS: LORazepam 2 MG/ML VIAL IV PRN ×2 (05:00→21:39)
[2017-07-14 05:10] VITALS: BMI 26.8
[2017-07-14] MEDS: ARFORMOTEROL TARTRATE 15 MCG/2 ML VIAL.NEB NEB SCH (08:05)
--- NOTE | 2017-07-14 08:30 | P.PN ---
Subjective Date of Service: 07/14/17 Primary Care Provider: None Chief Complaint: Laryngeal tumor Patient is complaining a so throat status post trach unable to swallow tolerating Ensure or Review of Systems ENT: Throat Pain Physical Examination - Vital Signs Temperature: 98.7 F Blood Pressure: 144/90 Pulse: 82 Respirations: 13 Pulse Ox (%): 95 - Physical Exam General: Cooperative Respiratory: Clear to auscultation bilaterally Cardiovascular: No edema, Normal S1 S2 - Studies Laboratory Data (last 24 hrs) 07/13/17 09:35: Sodium 138, Potassium 3.6, BUN 8, Creatinine 0.57 L, Glucose 116 , Total Bilirubin 1.1, AST 17, ALT 27, Alkaline Phosphatase 98 07/13/17 09:35: WBC 16.4 H, Hgb 16.1, Hct 47.4, Plt Count 234 Assessment & Plan - Problems (Diagnosis) (1) Laryngeal neoplasm Current Visit: Yes Status: Acute Plan: Patient is laryngeal neoplasm status post tracheostomy white count mildly elevated he is hypertensive
[2017-07-14] MEDS ORDERED: CEPACOL LOZENGES PO PRN (09:36)
[2017-07-14] MEDS: AMLODIPINE 5 MG TAB PO SCH (09:47)
[2017-07-14] MEDS: NICOTINE 21 MG/PAT TD SCH (09:47)
[2017-07-14] MEDS: ESCITALOPRAM 20 MG TAB PO SCH (09:47)
[2017-07-14] MEDS: ENOXAPARIN 30 MG/0.3 ML SQ SCH (09:47)
[2017-07-14] MEDS: TRAMADOL 37.5mg/APAP 325mg PER TAB PO PRN (09:52)
[2017-07-14] MEDS: ALBUTEROL 2.5 MG/3 ML NEB SOL NEB PRN ×2 (14:25→20:30)
--- NOTE | 2017-07-14 14:28 | PN ---
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 He had no major problems overnight according to the nurse. The degree of secretions is improving. He is tolerating deflation of the tracheostomy cuff. He is tolerating oral intake better, including about half of his breakfast. Objective: The patient's tachycardia and hypertension are improved with pulse range in the 80s to low 100s. His blood pressure has been in the 130s and 140s systolic. He is in no acute distress. Shiley tracheostomy tube is in place without significant coughing. He has mild edema of the skin above the trach tube. There is no active bleeding. Assessment And Plan: Given improvement in secretions, I agree with transferring the patient to the floor. Transfer orders have been previously placed by the hospitalist service. Goals for the next 24-48 hours include necessitating trach care teaching for the family and the patient with planned tracheostomy tube exchange on Saturday, anticipate discharge Saturday or Saturday depending on availability of suction equipment, another tracheostomy care supplies. FIGUEROA/LILLIAN Voice ID: [id number] Report ID: [id number] JODEE
[2017-07-14] MEDS ORDERED: ACETAMINOPHEN 500 MG TAB PO PRN (15:29)
[2017-07-14] MEDS: HYDROCODONE/APAP 7.5/325 MG TAB PO PRN (21:38)
[2017-07-15] MEDS: D5.45NS W/KCL 20MEQ 1,000 ML IV SCH ×3 (00:48→17:24)
[2017-07-15] MEDS: ALBUTEROL 2.5 MG/3 ML NEB SOL NEB PRN ×3 (01:28→16:55)
[2017-07-15] MEDS: HYDROCODONE/APAP 7.5/325 MG TAB PO PRN ×4 (04:44→23:24)
[2017-07-15] MEDS: ESCITALOPRAM 20 MG TAB PO SCH (08:28)
[2017-07-15] MEDS: AMLODIPINE 5 MG TAB PO SCH (08:28)
[2017-07-15] MEDS: NICOTINE 21 MG/PAT TD SCH (08:29)
[2017-07-15] MEDS: ENOXAPARIN 30 MG/0.3 ML SQ SCH (08:31)
[2017-07-15] MEDS: LORazepam 2 MG/ML VIAL IV PRN ×2 (10:49→19:02)
--- NOTE | 2017-07-15 12:12 | EKG ---
Test Date: 2017-07-13 Test Time: 17:25:01 Radiation Protection Engineer: NANDINI MEASUREMENT RESULTS: Intervals: Rate: 101 UT: 142 QRSD: 80 QT: 330 QTc: 427 [place]: P: 45 UT: 142 QRS: 13 T: 21 INTERPRETIVE STATEMENTS: Sinus tachycardia Otherwise normal ECG Compared to ECG 07/13/2017 17:24:06 Left ventricular hypertrophy no longer present Electronically Signed On 07-15-17 12:11:32 CDT by Hema Rojas
--- NOTE | 2017-07-15 12:12 | EKG ---
Test Date: 2017-07-13 Test Time: 17:24:06 Cook Dessert: NANDINI MEASUREMENT RESULTS: Intervals: Rate: 105 WV: 152 QRSD: 76 QT: 328 QTc: 433 [place]: P: 34 WV: 152 QRS: 10 T: 12 INTERPRETIVE STATEMENTS: Sinus tachycardia Minimal voltage criteria for LVH, may be normal variant Borderline ECG Compared to ECG 07/11/2017 09:43:19 Left ventricular hypertrophy now present Sinus rhythm no longer present Sinus arrhythmia no longer present Electronically Signed On 07-15-17 12:11:35 CDT by Hema Rojas
--- NOTE | 2017-07-15 12:26 | PN ---
Date of Progress Note: 07/15/2017 Subjective: The patient is seen and examined, chart reviewed, and case discussed with RN. The patie nt doing well. He states his swallowing is better, but still having some difficulty. The patient no w feeling comfortable with suctioning. The patient out of the ICU. Review of Systems: Negative except as above. Medications: Reviewed. Physical Examination: Vital Signs: Temperature 98.4, heart rate 86, blood pressure 133/86, respirations 18, O2 98% on trac h collar. CV: S1, S2. No murmurs. Regular rate and rhythm. Peripheral pulses present. Respiratory: Moving air well bilaterally. No wheezing. Abdomen: Soft, nontender, nondistended. Positive bowel sounds. Extremities: No clubbing, cyanosis, or edema. Neurologic: Nonfocal. HEENT: Trach collar in place. Oropharynx is clear. Poor dentition. Laboratory Data: Pending. Assessment And Plan: A 47-year-old male with; 1.Laryngeal neoplasm, status post biopsy by Ear, Nose, and Throat, likely squamous cell carcinoma. The patient will be being set up with Oncology with radiation therapy. 2.Nicotine dependence with cigarette smoking. Counseled. Continue nicotine patch. 3.Intermittent asthma. Albuterol nebulizers as needed. 4.Elevated blood pressure without diagnosis of hypertension. Blood pressure stabilized. We will co ntinue to monitor diet and exercise modification emphasized. 5.Adjustment disorder with depressed mood. The patient has been started on Selective serotonin reup take inhibitor. 6.Anxiety. We will continue Ativan p.r.n. 7.Gastrointestinal and deep venous thrombosis prophylaxis with PPI and Lovenox. Plan: Discharge planning, the patient will need supplies, case management is working with [facility] for supplies. The patient will need speech-language pathology and Trach care as outpatient. Per E NT, the patient will need dental evaluation for possible extractions prior to radiation therapy. We will continue to follow along with Dr. Pardo. We will repeat CBC in a.m. The patient has no signs of sepsis. Heart rate is improved. Lactic acid was negative. SA/MODL Voice ID: [id number] Report ID: [id number]
[2017-07-16 04:34] VITALS: O2SAT 92
[2017-07-16] MEDS: HYDROCODONE/APAP 7.5/325 MG TAB PO PRN ×4 (04:38→21:44)
[2017-07-16] MEDS: LORazepam 2 MG/ML VIAL IV PRN ×3 (04:39→21:52)
[2017-07-16] MEDS: D5.45NS W/KCL 20MEQ 1,000 ML IV SCH (04:49)
[2017-07-16] MEDS: ALBUTEROL 2.5 MG/3 ML NEB SOL NEB PRN (07:33)
--- NOTE | 2017-07-16 08:25 | P.PN ---
POD 4 trach/DL/Bx. Transferred to floor on Saturday and doing fair, tolerating diet. NAD, resting. [address] with sutures/umbilical ties. Mild bloody crust, bloody-mucoid secretions. Mild redness around suture/trach flange. Labs: None recent Path: confirms mod diff SCC A/P: 1. Laryngeal SCC - clinically T3. No obvious LN on non-contrasted CT neck. Plan for dental eval as outpatient to Dr. Kumar. I spoke with her yesterday about the patient. Plan out-patient referral to Camryn and Tiff at [facility]. Evaluations can be done concurrently with dental but radiation itself cannot begin until 2-3 weeks after the dental extractions. 2. New tracheotomy - First trache change performed today with RT without difficulty. 6CFS in place. Patient education regarding tube, inner canulas/ etc discussed. Mild back pressure with finger occlusion. Consult ST for PMV eval and bedside swallow. Will check with SW/CM regarding HH/suction/discharge preparation. 3. Depression risk - Continue Lexapro 10mg daily. Outpatient costs reviewed on GoodRx and should be around $10-15/month 4. DVT prophylaxis - given Ca dx and tobacco use, recent surgery and age, continue Lovenox and SCDs. He can ambulate as tolerated 5. Tobacco dependence - Continue Nicotine patch 21mg daily. Strongly recommend tobacco cessation; patient appear to understand importance. 6. D/C planning: once HH/supplies/suction is available, patient can be discharged home.
[2017-07-16] MEDS: ENOXAPARIN 30 MG/0.3 ML SQ SCH (09:11)
[2017-07-16] MEDS: NICOTINE 21 MG/PAT TD SCH (09:12)
[2017-07-16] MEDS: ESCITALOPRAM 20 MG TAB PO SCH (09:13)
[2017-07-16] MEDS: AMLODIPINE 5 MG TAB PO SCH (09:13)
[2017-07-16] MEDS: AMLODIPINE 10 MG TAB PO SCH (12:42)
--- NOTE | 2017-07-16 14:42 | PN ---
Date of Progress Note: 07/16/2017 Subjective: The patient is seen and examined, chart reviewed, and case discussed with RN and Dr. Pardo. The patient states that, he is doing better. He is not quite enjoying the food that is available, wants to switch his diet to regular diet from chopped. States his breathing is better. Review of Systems: Negative except as above. Medications: Reviewed. Physical Examination: Vital Signs: Temperature 97.8, heart rate 104, blood pressure 146/114, respirations 18, and O2 92% trach collar. CV: S1, S2. Sinus tachycardia. Peripheral pulses present. No murmurs. Respiratory: Moving air well bilaterally. No wheezing. Neck: Trach collar in place. Respiratory: moving air well bilaterally. No wheezing. Gastrointestinal: Abdomen is soft, nontender, nondistended. Positive bowel sounds. No guarding or rigidity. Extremities: No clubbing, cyanosis, edema. Neurologic: Nonfocal. Laboratory Data: Pending. Blood culture, no growth to date. Assessment: A 47-year-old male with; 1. 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 The patient will need to follow up with Radiation Oncology, status post biopsy by Dr. Pardo. 2. Nicotine dependence with cigarette smoking. We will continue nicotine patch. 3. Intermittent asthma. Albuterol as needed. 4. Hypertension. We will increase amlodipine dose. 5. Adjustment disorder with depressed mood. Started on Lexapro. 6. Generalized anxiety disorder. Continue Ativan p.r.n. 7. Gastrointestinal and deep venous thrombosis prophylaxis with PPI and Lovenox. Plan: We will recheck CBC in the a.m. The patient will need speech eval and trach care as an outpatient. Dr. Pardo working with Dental to setup extractions before starting radiation therapy. Heart rate is improved. We will avoid beta hunter secondary to his asthma. Discharge in the next 24-48 hours once arrangements have been made. /LILLIAN Voice ID: [id number] Report ID: [id number] MTDD
[2017-07-17] MEDS: HYDROCODONE/APAP 7.5/325 MG TAB PO PRN ×4 (04:33→22:06)
[2017-07-17 04:57] LABS: Absolute Lymphocytes (CBC) 1.8 K/uL (0.7-4.9); Absolute Monocytes 2.5 K/uL (0.1-1.3); Basophils % 0.4 % (0-1.3); Eosinophils % 1.2 % (0-4.4); Hematocrit 48.1 % (39.6-49.0); Lymphocytes % 8.8 % (15.3-44.8); MCV 91.8 fL (80-100); MPV 9.6 fL (7.6-11.3); RBC Red Blood Cell Count 5.24 M/uL (4.33-5.43)
[2017-07-17 05:07] LABS: BUN Blood Urea Nitrogen 17 mg/dL (6-20); Bicarbonate 27 mEq/L (21-31); Glucose Level 102 mg/dL (65-120); Potassium 3.8 mEq/L (3.6-5.0); Sodium Level 137 mEq/L (135-145)
[2017-07-17] MEDS: LORazepam 2 MG/ML VIAL IV PRN ×2 (06:58→16:15)
[2017-07-17 07:24] LABS: Blood Morphology Comment NOT SEEN (NOT SEEN); Platelet Estimate ADEQ
[2017-07-17] MEDS: AMLODIPINE 10 MG TAB PO SCH (09:29)
[2017-07-17] MEDS: ENOXAPARIN 30 MG/0.3 ML SQ SCH (09:30)
[2017-07-17] MEDS: ESCITALOPRAM 20 MG TAB PO SCH (09:30)
[2017-07-17] MEDS: NICOTINE 21 MG/PAT TD SCH (09:30)
[2017-07-17] MEDS: ALBUTEROL 2.5 MG/3 ML NEB SOL NEB PRN ×3 (10:22→23:36)
--- NOTE | 2017-07-17 18:39 | P.PN ---
Date of Service: 07/17/17 POD 5 trach/DL/Bx. Transferred to floor on Saturday and doing fair, tolerating diet. Seen by COMPUTER PERIPHERAL EQUIPMENT OPERATOR today and started PMV and is independent with use. AF. NAD, sitting up in chair, dressing shorts/ml shirt. [address] with velcro ties. PMV in place. Minimal phonation but no back pressure noted. Labs: WBC 20 this morning Path: confirms mod diff SCC - spoke with patient about results this evening A/P: 1. Laryngeal SCC - clinically T3. No obvious LN on non-contrasted CT neck. Plan for dental eval as outpatient to Dr. Kumar. I spoke with her yesterday about the patient. Plan out-patient referral to Camryn and Lancec at [facility]. Evaluations can be done concurrently with dental but radiation itself cannot begin until 2-3 weeks after the dental extractions. 2. New tracheotomy - Will check with SW/CM regarding HH/suction/discharge preparation. 3. Depression - Continue Lexapro 10mg daily. 4. DVT prophylaxis - given Ca dx and tobacco use, recent surgery and age, continue Lovenox and SCDs. He can ambulate as tolerated. 5. Tobacco dependence - Continue Nicotine patch 21mg daily. Strongly recommend tobacco cessation; patient appear to understand importance. 6. D/C planning: once HH/supplies/suction is available, patient can be discharged home.
--- NOTE | 2017-07-17 19:52 | PN ---
Date of Progress Note: 07/17/2017 Subjective: The patient is seen and examined, chart reviewed, and case discussed with RN. The patie nt states he is tolerating the diet better, has a handle on his tracheostomy care. Review of Systems: Negative except as above. Medications: Reviewed. Physical Examination: Vital Signs: Temperature 97.6, heart rate 108, blood pressure 140/91, respirations 18, O2 93% via tr ach collar. CV: S1, S2. No murmurs. HEENT: Trach collar in place. Oropharynx is clear. Normal dentition. Respiratory: Moving air well bilaterally. No wheezing. Gastrointestinal: Abdomen is soft, nontender, and nondistended. Positive bowel sounds. Extremities: No clubbing, cyanosis, or edema. Neurologic: Nonfocal. Laboratory Data: Sodium 137, potassium 3.8, chloride 99, CO2 of 27, BUN 17, creatinine 0.64, glucose 102, calcium 9.6. WBC 20.6, H and H are 16.2 and 48.1, platelets 318, neutrophils 77%, and 1% bands . Blood cultures no growth to date. Assessment And Plan: 1.A 47-year-old male with laryngeal squamous cell carcinoma, invasive, moderately differentiated. T he patient needs to follow up with ENT and Radiation Oncology after dental extraction to start radiat ion therapy. Appreciate Dr. Pardo's input. 2.Nicotine dependence with cigarette smoking, on nicotine patch. 3.Intermittent asthma. Albuterol p.r.n. 4.Essential hypertension. Amlodipine dose adjusted. 5.Adjustment disorder with depressed mood. Continue Lexapro. 6.Generalized anxiety disorder. Ativan p.r.n. 7.Leukocytosis with bandemia, unclear etiology. We will follow up on blood cultures and continue to monitor. 8.Gastrointestinal and deep venous thrombosis prophylaxis with PPI and Lovenox. Plan: Discharge planning spoke with case management regarding the patient's need for trach care, spe ech, and also medical supplies for trachea. has been given a list of supplies and bañuelos list. /LILLIAN Voice ID: [id number] Report ID: [id number]
[2017-07-18] MEDS: LORazepam 2 MG/ML VIAL IV PRN ×3 (00:05→18:19)
[2017-07-18] MEDS: TRAMADOL 37.5mg/APAP 325mg PER TAB PO PRN ×2 (00:10→20:25)
[2017-07-18] MEDS: HYDROCODONE/APAP 7.5/325 MG TAB PO PRN ×3 (04:10→18:18)
[2017-07-18 04:52] LABS: Absolute Lymphocytes (CBC) 2.6 K/uL (0.7-4.9); Absolute Monocytes 2.2 K/uL (0.1-1.3); Absolute Neutrophil 10.7 K/uL (1.8-8.0); Basophils % 0.4 % (0-1.3); Eosinophils % 2.5 % (0-4.4); Hematocrit 44.9 % (39.6-49.0); Lymphocytes % 16.2 % (15.3-44.8); MCV 91.3 fL (80-100); MPV 9.3 fL (7.6-11.3); Monocytes % 13.7 % (3.3-12.3); RBC Red Blood Cell Count 4.92 M/uL (4.33-5.43)
--- NOTE | 2017-07-18 09:23 | RAD REPORT ---
EXAM DESCRIPTION: Edin Haque And Brunilda (2 Views)07/18/2017 6:28 am CLINICAL HISTORY: Shortness of breath COMPARISON: July 12 FINDINGS: Mild right middle lobe opacity is suspected. The left lung appears clear. The heart is no rmal size. A tracheostomy tube is in place IMPRESSION: Mild right middle lobe opacity may represent atypical pneumonia or pneumonitis
[2017-07-18] MEDS: NICOTINE 21 MG/PAT TD SCH (09:26)
[2017-07-18] MEDS: ESCITALOPRAM 20 MG TAB PO SCH (09:27)
[2017-07-18] MEDS: ENOXAPARIN 30 MG/0.3 ML SQ SCH (09:27)
[2017-07-18] MEDS: AMLODIPINE 10 MG TAB PO SCH (09:28)
[2017-07-18] MEDS: ALBUTEROL 2.5 MG/3 ML NEB SOL NEB PRN (13:43)
[2017-07-18] MEDS ORDERED: Levofloxacin 750mg IV 750 MG/150 ML BAG IV SCH (14:00)
--- NOTE | 2017-07-18 17:25 | PN ---
Date of Progress Note: 07/18/2017 Subjective: The patient seen and examined, chart reviewed, and case discussed with RN and Social Work. The patient voiced actively obtaining trach supplies. The patient denies any acute events overnight. Tolerating diet. Pain is now controlled well with tramadol. Review of Systems: Negative except as above. Medications: Reviewed. Physical Examination: Vital Signs: Temperature 97.9, heart rate 85, blood pressure 145/84, respirations 20, and O2 93% on room air. General: Awake, alert, oriented x3, in some mild distress. CV: S1, S2. No murmurs. Regular rate and rhythm. Peripheral pulses present. Respiratory: Moving air well bilaterally. No wheezing Gastrointestinal: Abdomen is soft, nontender, nondistended. Positive bowel sounds. Extremities: No clubbing, cyanosis, or edema. Neurologic: Nonfocal. Neck: Trachea midline. Trach collar in place. Laboratory Data: Sodium 137, potassium 3.8, chloride 99, CO2 27, BUN 17, creatinine 0.64, glucose 102, and calcium 9.6. WBC 16, H and H 13.3, 44.9, platelets 290, and neutrophils 67.2%. Chest x-ray shows right middle lobe opacity, may represent atypical pneumonia or pneumonitis. Assessment And Plan: A 47-year-old male with; 1. Laryngeal squamous cell carcinoma, invasive, moderately differentiated. The patient to have dental extraction prior to radiation, being set up with Radiation Oncology by Dr. Pardo. 2. Nicotine dependence, cigarette smoking, on nicotine patch. 3. right lobe pneumonia versus pneumonitis. We will start patient on IV antibiotics. Chest x-ray does show opacity. 4. Intermittent asthma. Continue albuterol. 5. Essential hypertension. Continue amlodipine. 6. Adjustment disorder with depressed mood. Continue Lexapro. 7. Generalized anxiety disorder. Ativan p.r.n. 8. Gastrointestinal and deep venous thrombosis prophylaxis, PPI and Lovenox. SA/MODL Voice ID: [id number] Report ID: [id number] [id number]
[2017-07-18] MEDS: DOXYCYCLINE 100 MG in NA CHLORIDE 0.9% 100 ML IVPB SCH (20:26)
[2017-07-19] MEDS: LORazepam 2 MG/ML VIAL IV PRN ×2 (00:27→09:11)
[2017-07-19] MEDS: HYDROCODONE/APAP 7.5/325 MG TAB PO PRN (00:27)
[2017-07-19] MEDS: Morphine 2 MG/2 ML SYR IV PRN ×5 (04:56→21:50)
[2017-07-19] MEDS: NICOTINE 21 MG/PAT TD SCH (09:08)
[2017-07-19] MEDS: ENOXAPARIN 30 MG/0.3 ML SQ SCH (09:08)
[2017-07-19] MEDS: AMLODIPINE 10 MG TAB PO SCH (09:09)
[2017-07-19] MEDS: ESCITALOPRAM 20 MG TAB PO SCH (09:10)
[2017-07-19] MEDS: DOXYCYCLINE 100 MG in NA CHLORIDE 0.9% 100 ML IVPB SCH ×2 (09:11→21:50)
[2017-07-19] MEDS ORDERED: GUAIFENESIN/CODEINE 5ML UCUP PO PRN (09:25)
[2017-07-19 10:02] LABS: Absolute Lymphocytes (CBC) 1.7 K/uL (0.7-4.9); Absolute Monocytes 1.5 K/uL (0.1-1.3); Absolute Neutrophil 12.2 K/uL (1.8-8.0); Basophils % 0.4 % (0-1.3); Eosinophils % 1.7 % (0-4.4); Hematocrit 46.1 % (39.6-49.0); Lymphocytes % 10.8 % (15.3-44.8); MCH 31.4 pg (27.0-35.0); MCV 90.8 fL (80-100); MPV 9.3 fL (7.6-11.3); Monocytes % 9.3 % (3.3-12.3); RBC Red Blood Cell Count 5.08 M/uL (4.33-5.43)
[2017-07-19] MEDS: ALBUTEROL 2.5 MG/3 ML NEB SOL NEB PRN ×2 (12:52→21:01)
--- NOTE | 2017-07-19 14:07 | RAD REPORT ---
EXAM DESCRIPTION: RAD - Barium Swallow Modified - 07/19/2017 2:02 pm CLINICAL HISTORY: Cough and pneumonia FINDINGS: MILD PHARYNGEAL RESIDUE VALLECULAR PYRIFORM WITH THIN NECTAR AND HONEY CONSISTENCIES OVERALL FUNCTIONAL SWALLOW
--- NOTE | 2017-07-19 15:51 | PN ---
Date of Progress Note: 07/19/2017 Subjective: The patient seen and examined, chart reviewed, and case discussed with RN. The patient states that, he is not able to get much sleep overnight due to cough. Going for a modified barium swallow study today. Review of Systems: Negative except as above. Medications: Reviewed. Physical Examination: Vital Signs: Temperature 97.3, heart rate blood pressure 134/82, respirations 16, and O2 91% on room air. General: Awake, alert, oriented x3, in some mild distress. Neck: trach collar in place. CV: S1, S2. Regular rate and rhythm. No murmurs. Peripheral pulses present bilaterally. Respiratory: Some diminished breath sounds at the bases, otherwise moving air well. No wheezing. Gastrointestinal: Abdomen is soft, nontender, nondistended. Positive bowel sounds. No guarding or rigidity. Extremities: No clubbing, cyanosis, edema. Neurologic: Nonfocal. Laboratory Data: WBC 15.7, H and H 16, 46.1, platelets 300, and neutrophils 77% . Procalcitonin less than 0.05. Assessment: A 47-year-old male with; 1. Laryngeal squamous cell carcinoma, invasive, moderately differentiated. The patient is awaiting trach supplies to be set up prior to being discharged, wherein he will go for dental extraction prior to radiation therapy. Appreciate Dr. Pardo's input. 2. Nicotine dependence with cigarette smoking. Continue nicotine patch. 3. Right lower lobe pneumonia, possible pneumonitis. We will continue on IV antibiotics. White count is trending down. Sputum culture shows normal maximo. Blood cultures negative to date. Afebrile. We will repeat chest x-ray as clinically indicated. 4. Intermittent asthma. Continue albuterol. 5. Essential hypertension. Resume home medication. 6. Adjustment disorder with depressed mood. Continue Lexapro. 7. Generalized anxiety disorder. We will discontinue IV lorazepam. Continue with Xanax home dose p.o. 8. Gastrointestinal and deep venous thrombosis prophylaxis with PPI and Lovenox. Plan: The patient's and social workers have been in coordination with [employer], who have agreed to assist with trach supplies for 2 months, which will likely be delivered on Saturday. We will follow up with modified barium swallow study to rule out any aspiration. The will continue to monitor closely. SA/MODL Voice ID: [id number] Report ID: [id number] MTDD
[2017-07-19] MEDS ORDERED: ATORVASTATIN 20 MG TAB PO SCH (21:00)
[2017-07-19] MEDS ORDERED: ALPRAZOLAM 1 MG TABLET PO SCH (21:00)
[2017-07-19] MEDS ORDERED: DIPHENHYDRAMINE 50 MG/ML VIAL IV ONE (23:16)
[2017-07-20 04:25] LABS: Absolute Lymphocytes (CBC) 2.8 K/uL (0.7-4.9); Absolute Monocytes 1.7 K/uL (0.1-1.3); Absolute Neutrophil 10.9 K/uL (1.8-8.0); Basophils % 0.4 % (0-1.3); Eosinophils % 1.9 % (0-4.4); Lymphocytes % 18.1 % (15.3-44.8); MCH 31.1 pg (27.0-35.0); MCV 91.5 fL (80-100); MPV 9.4 fL (7.6-11.3); Monocytes % 10.5 % (3.3-12.3); RBC Red Blood Cell Count 4.92 M/uL (4.33-5.43)
[2017-07-20 04:59] LABS: BUN Blood Urea Nitrogen 17 mg/dL (6-20); Bicarbonate 28 mEq/L (21-31); Glucose Level 106 mg/dL (65-120); Magnesium 2.1 mg/dL (1.8-2.5); Potassium 4.2 mEq/L (3.6-5.0); Sodium Level 138 mEq/L (135-145)
[2017-07-20] MEDS ORDERED: PANTOPRAZOLE 40MG TABLET PO SCH (06:30)
[2017-07-20] MEDS ORDERED: ALFUZOSIN HCL 10 MG PO SCH (09:00)
[2017-07-20] MEDS ORDERED: FLUTICASONE 50MCG NASAL SPRAY NAS SCH (09:00)
[2017-07-20] MEDS ORDERED: LOSARTAN POTASSIUM 50 MG TABLET PO SCH (09:00)
[2017-07-20] MEDS ORDERED: ALLOPURINOL 100 MG TAB PO SCH (09:00)
[2017-07-20] MEDS ORDERED: ASPIRIN EC 81 MG TAB PO SCH (09:00)
[2017-07-20] MEDS ORDERED: ROFLUMILAST 500 MCG TABLET PO SCH (09:00)
[2017-07-20] MEDS: Morphine 2 MG/2 ML SYR IV PRN ×2 (10:05→20:28)
[2017-07-20] MEDS: ESCITALOPRAM 20 MG TAB PO SCH (10:08)
[2017-07-20] MEDS: ENOXAPARIN 30 MG/0.3 ML SQ SCH (10:09)
[2017-07-20] MEDS: DOXYCYCLINE 100 MG in NA CHLORIDE 0.9% 100 ML IVPB SCH ×2 (10:09→20:27)
[2017-07-20] MEDS: NICOTINE 21 MG/PAT TD SCH (10:09)
[2017-07-20] MEDS: AMLODIPINE 10 MG TAB PO SCH (13:28)
[2017-07-20] MEDS: FLUCONAZOLE 200mg IVPB 200 MG/100 ML BAG IV SCH (14:22)
--- NOTE | 2017-07-20 17:43 | PN ---
Date of Progress Note: 07/20/2017 The patient is seen and examined. Chart reviewed. Case discussed with RN. The patient is confused. Still having difficulty swallowing. The patient had a modified barium swallow study done yesterday. The patient otherwise does report difficulty swallowing at times. The pain is controlled. Review of Systems: Negative except as above. Medications: Reviewed. Physical Examination: Vital Signs: Temperature 98.2, heart rate 71, blood pressure 106/73, respirations 15, O2 92% on room air. General: Awake, alert, oriented x3, in some mild distress. Neck: Trach collar in place. CV: S1, S2. No murmurs. Peripheral pulses present bilaterally. Respiratory: Moving air well bilaterally. No wheezing. Gastrointestinal: Abdomen is soft, nontender, nondistended. Positive bowel sounds. Extremities: No clubbing, cyanosis, or edema. Neurologic: Nonfocal. Laboratory Data: Sodium 138, potassium 4.2, chloride 103, CO2 28, BUN 17, creatinine 0.67, glucose 106, calcium 9.3, magnesium 2.1. Procalcitonin less than 0.05 on the . WBC 15.7, H and H 15.3, 45, platelets 313, neutrophils 69%. Blood cultures negative sputum culture growing yeast. We will start on Diflucan. Assessment: A 47-year-old male with: 1. Laryngeal squamous cell carcinoma, invasive, moderately differentiated. The patient's trach supplies are being set up with the [employer], will likely be delivered on Saturday. The patient is to go for dental extractions prior to radiation therapy being set up at the [facility]. Appreciate Dr. Pardo's input. 2. Nicotine dependence. Cigarette smoking. 3. Right lower lobe pneumonia. Possible pneumonitis. We will continue IV antibiotics. White count trending down. Procalcitonin is negative. The patient is not septic. Sputum cultures growing yeast. We will add Diflucan. Blood cultures are negative. Repeat chest x-ray in a.m. 4. Intermittent asthma. Continue albuterol. 5. Essential hypertension, stable. 6. Adjustment disorder with depressed mood. Continue Lexapro. 7. Generalized anxiety disorder. We will continue with home dose of Xanax. 8. Gastrointestinal and deep venous thrombosis prophylaxis, PPI and Lovenox. Plan: Repeat chest x-ray in a.m. Add Diflucan. The patient's home medications that were put in system were inaccurate. The patient is not taking these medications for significant period of time and will be discontinued. The patient had a modified barium swallow study done yesterday and according to speech therapy, the patient is to keep the speaking swallowing valve in place while eating to reduce risk of aspiration. He was also recommended to be on a regular texture diet with thin liquids and standard aspiration precautions. JAVI Voice ID: [id number] Report ID: [id number] JODEE
[2017-07-21] MEDS: Morphine 2 MG/2 ML SYR IV PRN ×2 (05:15→20:12)
[2017-07-21 05:27] LABS: Absolute Monocytes 1.7 K/uL (0.1-1.3); Absolute Neutrophil 12.7 K/uL (1.8-8.0); Basophils % 0.7 % (0-1.3); Hematocrit 44.5 % (39.6-49.0); Lymphocytes % 16.7 % (15.3-44.8); MCH 31.3 pg (27.0-35.0); MCV 91.8 fL (80-100); MPV 9.1 fL (7.6-11.3); Monocytes % 9.3 % (3.3-12.3); RBC Red Blood Cell Count 4.85 M/uL (4.33-5.43)
[2017-07-21] MEDS: AMLODIPINE 10 MG TAB PO SCH (08:44)
[2017-07-21] MEDS: ESCITALOPRAM 20 MG TAB PO SCH (08:44)
[2017-07-21] MEDS: NICOTINE 21 MG/PAT TD SCH (08:45)
[2017-07-21] MEDS: ENOXAPARIN 30 MG/0.3 ML SQ SCH (08:45)
[2017-07-21] MEDS: DOXYCYCLINE 100 MG in NA CHLORIDE 0.9% 100 ML IVPB SCH ×2 (09:23→20:12)
--- NOTE | 2017-07-21 10:45 | RAD REPORT ---
EXAM DESCRIPTION: RAD - Chest Pa And Lat (2 Views) - 07/21/2017 10:37 am CLINICAL HISTORY: Shortness of breath. COMPARISON: 07/18/2017, 07/12/2017 FINDINGS: The lungs are mildly emphysematous but clear. The heart is normal in size. No displaced fr actures. Tracheostomy tube is in appropriate position. IMPRESSION: Mild COPD.
[2017-07-21] MEDS: FLUCONAZOLE 200mg IVPB 200 MG/100 ML BAG IV SCH (13:31)
--- NOTE | 2017-07-21 16:43 | PN ---
Date of Progress Note: 07/21/2017 Subjective: The patient seen and examined. Chart reviewed and case discussed with RN. The patient denies any significant breathing problems. No cough or sputum production. Pain is controlled. Tolerating diet well. Review of Systems: Negative except as above. Medications: Reviewed. Physical Examination: Vital Signs: Temperature 97.9, heart rate 87, blood pressure 120/64, respirations 16, O2 95% on trach collar. General: Awake, alert, oriented x3, not in any acute distress. Neck: Trach collar in place. CV: S1, S2. Regular rate and rhythm. Peripheral pulses are present. Respiratory: Moving air well bilaterally. No wheezing. No stridor. No use of accessory muscles. Gastrointestinal: Abdomen is soft, nontender, nondistended. Positive bowel sounds. Extremities: No clubbing, cyanosis, edema. Neurologic: Nonfocal. Laboratory Data: WBC 17.8, H and H 15.2 and 44.5, platelets 345, neutrophils 71 %. Blood cultures negative final. Sputum cultures growing 2+ yeast. Chest x- ray personally reviewed shows mild COPD. Assessment And Plan: A 47-year-old male with; 1. Laryngeal squamous cell carcinoma, invasive, moderately differentiated. The patient awaiting trach supplies to be delivered on Saturday by [employer]. The patient will go for dental extraction prior to radiation therapy, being set up by [facility]. ENT on board. 2. Nicotine dependence. Cigarette smoking, uncomplicated. 3. Chronic obstructive pulmonary disease. 4. Chronic obstructive pulmonary disease and asthma. We will continue albuterol p.r.n. 5. Right lower lobe pneumonia, possible pneumonitis, improved. We will continue IV antibiotics. Cultures are negative. WBC still elevated; however, the patient does not appear septic. Procalcitonin is negative. Sputum cultures growing yeast. Diflucan has been added. Repeat chest x-ray shows improvement and resolution of pneumonia. 6. Intermittent asthma. Continue albuterol. 7. Essential hypertension, stable. 8. Adjustment disorder with depressed mood. Continue Lexapro. 9. Generalized anxiety disorder. Xanax. 10. Gastrointestinal and deep venous thrombosis prophylaxis with PPI and Lovenox. Plan: Discharge once home trach supplies have been delivered. /LILLIAN Voice ID: [id number] Report ID: [id number] MTDD
[2017-07-22 05:44] LABS: Absolute Lymphocytes (CBC) 3.3 K/uL (0.7-4.9); Absolute Monocytes 1.4 K/uL (0.1-1.3); Absolute Neutrophil 13.6 K/uL (1.8-8.0); Basophils % 1.1 % (0-1.3); Hematocrit 46.8 % (39.6-49.0); Lymphocytes % 17.4 % (15.3-44.8); MCH 31.2 pg (27.0-35.0); MCV 91.7 fL (80-100); MPV 9.2 fL (7.6-11.3); Monocytes % 7.5 % (3.3-12.3); RBC Red Blood Cell Count 5.11 M/uL (4.33-5.43)
[2017-07-22 05:49] LABS: ALT/SGPT 45 IU/L (10-60); AST/SGOT 19 IU/L (10-42); Albumin 3.1 g/dL (3.2-5.5); Alkaline Phosphatase 99 IU/L (42-121); BUN Blood Urea Nitrogen 14 mg/dL (6-20); Bicarbonate 26 mEq/L (21-31); Bilirubin Total 0.7 mg/dL (0.3-1.2); Glucose Level 106 mg/dL (65-120); Potassium 4.2 mEq/L (3.6-5.0); Protein, Total 7.4 g/dL (6.0-8.3); Sodium Level 140 mEq/L (135-145)
[2017-07-22] MEDS: AMLODIPINE 10 MG TAB PO SCH (10:06)
[2017-07-22] MEDS: ESCITALOPRAM 20 MG TAB PO SCH (10:06)
[2017-07-22] MEDS: ENOXAPARIN 30 MG/0.3 ML SQ SCH (10:15)
[2017-07-22] MEDS: NICOTINE 21 MG/PAT TD SCH (10:15)
[2017-07-22] MEDS: DOXYCYCLINE 100 MG in NA CHLORIDE 0.9% 100 ML IVPB SCH ×2 (10:17→20:46)
[2017-07-22] MEDS: FLUCONAZOLE 200mg IVPB 200 MG/100 ML BAG IV SCH (13:04)
--- NOTE | 2017-07-22 15:10 | P.PN ---
Subjective Date of Service: 07/22/17 Primary Care Provider: None Chief Complaint: Laryngeal tumor no fever, the patient feels better. Physical Examination - Vital Signs Temperature: 97.1 F Blood Pressure: 122/78 Pulse: 82 Respirations: 18 Pulse Ox (%): 96 - Physical Exam General: Alert, In no apparent distress HEENT: Atraumatic, PERRLA, Other, EOMI Neck: Supple, JVD not distended, Other (trach in place) Respiratory: Clear to auscultation bilaterally, Normal air movement Cardiovascular: Regular rate/rhythm, Normal S1 S2 Gastrointestinal: Normal bowel sounds, No tenderness Musculoskeletal: No tenderness Integumentary: No rashes Neurological: Normal speech, Normal tone, Normal affect - Studies Laboratory Data (last 24 hrs) 07/22/17 05:10: Sodium 140, Potassium 4.2, BUN 14, Creatinine 0.68, Glucose 106 , Total Bilirubin 0.7, AST 19, ALT 45, Alkaline Phosphatase 99 07/22/17 05:10: WBC 19.0 H, Hgb 15.9, Hct 46.8, Plt Count 326 Medications List Reviewed: Yes Assessment And Plan - Current Problems (Diagnosis) (1) Pneumonitis Current Visit: Yes Status: Acute (2) Laryngeal neoplasm Onset Date: 07/15/17 Current Visit: Yes Status: Acute (3) Asthma Onset Date: 07/15/17 Current Visit: Yes Status: Chronic Qualifiers: Asthma severity: mild Asthma persistence: intermittent Asthma complication type: uncomplicated Qualified Code(s): J45.20 - Mild intermittent asthma, uncomplicated (4) Tobacco abuse Onset Date: 07/15/17 Current Visit: Yes Status: Chronic - Plan Continue IV antibiotics for pneumonitis vs pneumonia, WBC still elevated but no fever, and clinically stable. The patient may be discharged home tomorrow if remain stable, once the family get the supply to take care his trach.
[2017-07-22] MEDS: Morphine 2 MG/2 ML SYR IV PRN (22:03)
[2017-07-23] MEDS: DOXYCYCLINE 100 MG in NA CHLORIDE 0.9% 100 ML IVPB SCH (09:00)
[2017-07-23] MEDS: ESCITALOPRAM 20 MG TAB PO SCH (09:15)
[2017-07-23] MEDS: NICOTINE 21 MG/PAT TD SCH (09:15)
[2017-07-23] MEDS: AMLODIPINE 10 MG TAB PO SCH (09:16)
[2017-07-23] MEDS: ENOXAPARIN 30 MG/0.3 ML SQ SCH (09:17)
--- NOTE | 2017-07-23 12:00 | P.DS ---
Admission Date: 07/12/17 Discharge Date: 07/23/17 Primary Care Provider: None Disposition: ROUTINE DISCHARGE Discharge Condition: GOOD Reason for Admission: Laryngeal tumor - Problems (1) Pneumonitis Current Visit: Yes Status: Acute (2) Laryngeal neoplasm Onset Date: 07/15/17 Current Visit: Yes Status: Acute (3) Asthma Onset Date: 07/15/17 Current Visit: Yes Status: Chronic Qualifiers: Asthma severity: mild Asthma persistence: intermittent Asthma complication type: uncomplicated Qualified Code(s): J45.20 - Mild intermittent asthma, uncomplicated (4) Tobacco abuse Onset Date: 07/15/17 Current Visit: Yes Status: Chronic Brief History of Present Illness: By Dr Mc: 47-year-old male had surgery today for biopsy of laryngeal tumor and tracheostomy. I was asked by ENT to evaluate his chronic medical conditions. The patient 1st presented to ENT with changes in his voice. He had felt a knot in his throat. The change in voice was care to rise with coarseness. This had lasted for about 2 days. He was actually seen in the emergency room on 07/09. Patient was found to have a laryngeal mass on CT scan. He was referred up to [place]. He was not able to the evaluated up in [place] due to upfront cost. Patient is without insurance. Patient decided to see ENT locally. The patient was evaluated. Squamous-cell carcinoma was suspected. Recommendation is for the patient to have biopsy of laryngeal tumor and for a tracheostomy as the patient would require radiation for suspected squamous cell carcinoma T3. Postsurgery patient is doing well. Patient reports no significant medical history. Patient does smoke regularly. He plans to quit. Patient reports a history of asthma. Hospital Course: During his stay in the hospital he had done a trachetomy due to airway obstruction due to laryngeal tumor, then a tracheostomy was placed. biopsy was consistent with Invasive squamous cell carcinoma, well to moderately differentiated. Dr Pardo already made arrangement for follow up at [facility]. However, they can not start radiation therapy until teeth extraction. As complication of this admission, the patient was treated with doxycycline for pneumonia. Sputum culture reported yeast, and Dr Salinas started also on Fluconazole. At this point the patient is clinically and hemodynamically stable, to be discharged home. Tracheostomy care kit will be delivery at home today. F/U at cancer center, Dr Pardo, and PCP. Will continue antibiotic and antifungal medication as outpatient until complete the treatment. Vital Signs/Physical Exam: Temp Pulse Resp BP Pulse Ox 99.3 F 82 16 116/77 95 07/23/17 08:00 07/23/17 08:00 07/23/17 08:00 07/23/17 08:00 07/23/17 08:00 Laboratory Data at Discharge: WBC 19.0 K/uL (4.3-10.9) H 07/22/17 05:10 Hgb 15.9 g/dL (13.6-17.9) 07/22/17 05:10 Hct 46.8 % (39.6-49.0) 07/22/17 05:10 Plt Count 326 K/uL (152-406) 07/22/17 05:10 Sodium 140 mEq/L (135-145) 07/22/17 05:10 Potassium 4.2 mEq/L (3.6-5.0) 07/22/17 05:10 BUN 14 mg/dL (6-20) 07/22/17 05:10 Creatinine 0.68 mg/dL (0.61-1.24) 07/22/17 05:10 Glucose 106 mg/dL (65-120) 07/22/17 05:10 Magnesium 2.1 mg/dL (1.8-2.5) 07/20/17 03:56 Total Bilirubin 0.7 mg/dL (0.3-1.2) 07/22/17 05:10 AST 19 IU/L (10-42) 07/22/17 05:10 ALT 45 IU/L (10-60) 07/22/17 05:10 Alkaline Phosphatase 99 IU/L (42-121) 07/22/17 05:10 Home Medications: Albuterol Neb [Proventil 0.083% Neb Soln] 2.5 mg NEB Q6HP PRN #10 amp 07/23/17 Amlodipine [Norvasc*] 10 mg PO DAILY #30 tab 07/23/17 Doxycycline Hyclate 100 mg PO BID #14 tablet 07/23/17 Escitalopram [Lexapro*] 10 mg PO DAILY #30 tab 07/23/17 Fluconazole 200 mg PO DAILY #10 tablet 07/23/17 Guaifen W/Codeine Syrup [ROBITUSSIN A-C Syrup*] 5 ml PO QID PRN #1 ucup Nebulizer/Compressor [Portable Nebulizer System] 1 each MC Q6HR PRN #1 each New Medications: Albuterol Neb [Proventil 0.083% Neb Soln] 2.5 mg NEB Q6HP PRN #10 amp PRN Reason: Wheezing Amlodipine [Norvasc*] 10 mg PO DAILY #30 tab Doxycycline Hyclate 100 mg PO BID #14 tablet Escitalopram [Lexapro*] 10 mg PO DAILY #30 tab Fluconazole 200 mg PO DAILY #10 tablet Guaifen W/Codeine Syrup [ROBITUSSIN A-C Syrup*] 5 ml PO QID PRN #1 ucup PRN Reason: Cough Nebulizer/Compressor [Portable Nebulizer System] 1 each MC Q6HR PRN #1 each PRN Reason: Wheezing Patient Discharge Instructions: F/U with PCP within a week Diet: Regular Followup: Rafael Mejia MD [ACTIVE - CAN ADMIT] - Keya Pardo MD [ACTIVE - CAN ADMIT] -
[2017-07-23 12:12] VITALS: BP 140/86; TEMP 96.9
[2017-07-23] MEDS ORDERED: DOXYCYCLINE 100 MG CAP PO SCH (21:00)
== END 2017-07-23 12:55 | disposition home health service (06) | DRG 11 ==
LOC: OR 07:23 → 3RD-ICU 09:32 → 4TH 07-14 14:05
PROVIDERS: ADMIT Otolaryngology; ATTEND Internal Medicine
PROC: 0CBS8ZX Excision of Larynx, Via Natural or Artificial Opening Endoscopic, Diagnostic (ICD-10-PCS; principal; 2017-07-12 08:30)
PROC: 0B110F4 Bypass Trachea to Cutaneous with Tracheostomy Device, Open Approach (ICD-10-PCS; 2017-07-12 08:30)
DX: C32.1 Malignant neoplasm of supraglottis (principal); J18.9 Pneumonia, unspecified organism; I10 Essential (primary) hypertension; R00.0 Tachycardia, unspecified; D72.825 Bandemia; F43.23 Adjustment disorder with mixed anxiety and depressed mood; F17.210 Nicotine dependence, cigarettes, uncomplicated; H91.92 Unspecified hearing loss, left ear; J45.20 Mild intermittent asthma, uncomplicated
CPT/HCPCS: 36415; 71045; 71046; 74230; 80048; 80053; 83605; 83735; 84145; 85025; 87040; 87070; 87205; 88305; 93005; 94640; J0171; J0330; J1450; J1650; J2250; J2270; J2310; J7605

== ENCOUNTER 2017-08-11 15:06 | Emergency (ER) | payer OTHER, SELFPAY ==
[2017-08-11 16:40] LABS: Absolute Lymphocytes (CBC) 2.4 K/uL (0.7-4.9); Absolute Monocytes 1.3 K/uL (0.1-1.3); Absolute Neutrophil 14.6 K/uL (1.8-8.0); Basophils % 0.6 % (0-1.3); Eosinophils % 0.8 % (0-4.4); Hematocrit 45.5 % (39.6-49.0); Lymphocytes % 13.1 % (15.3-44.8); MCH 30.5 pg (27.0-35.0); MCV 90.7 fL (80-100); MPV 9.3 fL (7.6-11.3); Monocytes % 6.8 % (3.3-12.3); Protime INR 1.01; RBC Red Blood Cell Count 5.02 M/uL (4.33-5.43)
[2017-08-11 16:43] LABS: Bicarbonate 24 mEq/L (21-31); Glucose Level 118 mg/dL (65-120); Potassium 3.7 mEq/L (3.6-5.0); Sodium Level 138 mEq/L (135-145)
[2017-08-11 16:49] LABS: ALT/SGPT 56 IU/L (10-60); AST/SGOT 26 IU/L (10-42); Albumin 4.4 g/dL (3.2-5.5); Alkaline Phosphatase 106 IU/L (42-121); BUN Blood Urea Nitrogen 12 mg/dL (6-20); Bilirubin Direct < 0.1 mg/dL (0-0.2); Bilirubin Total 0.6 mg/dL (0.3-1.2); Magnesium 2.1 mg/dL (1.8-2.5)
--- NOTE | 2017-08-11 17:05 | RAD REPORT ---
EXAM DESCRIPTION: CT - Soft Tissue Neck Wo Contr CLINICAL HISTORY: Head and neck carcinoma, neck pain, hemoptysis. COMPARISON: CT 07/09/2017 PET-CT 08/08/2017. TECHNIQUE All CT scans are performed using dose optimization technique as appropriate and may includ e automated exposure control or mA/KV adjustment according to patient size. FINDINGS: Examination is limited by lack of IV contrast. Ill-defined soft tissues mass along left glottic/supraglottic region is again noted, stable since rec ent PET-CT study. Full assessment is inherently limited due to lack of IV contrast. A few mildly prom inent lymph nodes are seen along the jugulodigastric chain bilaterally. Tracheostomy tube is in place. No acute or new finding is identified. IMPRESSION: No acute finding is demonstrated in the neck soft tissues. No significant change is seen in the left glottic/supraglottic malignancy since recent PET-CT study d ated 08/08/2017.
--- NOTE | 2017-08-11 17:06 | RAD REPORT ---
EXAM DESCRIPTION: RAD - Chest Pa And Lat (2 Views) - 08/11/2017 5:00 pm CLINICAL HISTORY: Hemoptysis COMPARISON: 07/21/2017 FINDINGS: The lungs are mildly hyperexpanded compatible with COPD. Tip of the tracheostomy tube is a wilberto the eusebio. The heart is normal in size. No displaced fractures. IMPRESSION: No acute process identified.
--- NOTE | 2017-08-11 17:07 | RAD REPORT ---
EXAM DESCRIPTION: CT - Thorax Wo Con CLINICAL HISTORY: Hemoptysis COMPARISON: None FINDINGS: The lungs are clear. No pleural thickening or pleural effusion. No pneumothorax. Tracheost temo tube is in place with tip well above the eusebio. No axillary, mediastinal or hilar adenopathy. No concerning bony finding. No gross upper abdominal finding. All CT scans are performed using dose optimization technique as appropriate and may include automated exposure control or mA/KV adjustment according to patient size. IMPRESSION: No acute intrathoracic abnormality.
--- NOTE | 2017-08-11 19:31 | ER ---
Nurse's Notes [facility] Name: Akin Pugh Age: 47 yrs Sex: Male : 1970 Arrival Date: 08/11/2017 Time: 15:09 Bed 30 Private MD: Diagnosis: Hemoptysis;Tracheostomy complication Presentation: 08/11 15:22 Presenting complaint: Patient states: I have had a trach for one month due to stage 3 la1 throat CA and yesterday I began coughing up blood. My left lower leg has been numb for the last week as well. Transition of care: patient was not received from another setting of care. Onset of symptoms was August 11, 2017. Initial Sepsis Screen: Does the patient meet any 2 criteria? No. Patient's initial sepsis screen is negative. Does the patient have a suspected source of infection? No. Patient's initial sepsis screen is negative. Care prior to arrival: None. 15:22 Method Of Arrival: Ambulatory la1 15:22 Acuity: PAO 3 la1 Triage Assessment: 16:30 General: Appears in no apparent distress. well groomed, well developed, well nourished, rk2 Behavior is calm, cooperative. 16:30 Pain: Denies pain. EENT: Throat Trach in place. Neuro: Level of Consciousness is alert, rk2 obeys commands, Oriented to person, place, time, situation. Cardiovascular: Rhythm is sinus rhythm. Respiratory: Airway is patent Respiratory effort is even, unlabored, Respiratory pattern is regular, symmetrical. Derm: Skin is pink, warm \T\ dry. Historical: - Allergies: 15:23 Iodine; la1 - PMHx: 15:23 Asthma; COPD; throat CA; la1 - Immunization history:: Adult Immunizations up to date. - Social history:: Smoking status: Patient/guardian denies using tobacco. - Family history:: not pertinent. - Hospitalizations: : No recent hospitalization is reported. - History obtained from: spouse, . Screenin:30 Abuse screen: Denies threats or abuse. rk2 16:30 Nutritional screening: No deficits noted. Tuberculosis screening: No symptoms or risk rk2 factors identified. Fall Risk None identified. Assessment: 17:00 Reassessment: Pt. resting in room \T\ this time... appears to be in no distress. Able to rk2 cough and clear trach. RT cleaned and replaced trach tube. 17:35 Reassessment: Reassessment: Pt. resting in room, family \T\ bedside. Appears to be in no rk2 distress. Pt. able to ambulate to restroom without difficulty. No other needs voiced. 18:45 Reassessment: Dr. Pardo \T\ pt. bedside... replaced pt. trach tube. rk2 19:44 Reassessment: Patient appears in no apparent distress at this time. Patient and/or tl3 family updated on plan of care and expected duration. Pain level reassessed. Patient is alert, oriented x 3, equal unlabored respirations, skin warm/dry/pink. asked to leave the exam room due to arguing with pt. Vital Signs: 15:23 BP 142 / 93; Pulse 94; Resp 19; Temp 98.8; Pulse Ox 98% on R/A; Weight 95.25 kg; Height la1 6 ft. 0 in. (182.88 cm); 17:35 BP 107 / 63; Pulse 72; Resp 18; Pulse Ox 98% on R/A; rk2 18:16 BP 122 / 91; Pulse 72; Resp 18; Pulse Ox 97% on R/A; rk2 19:00 BP 151 / 87; Pulse 74; Resp 17; Pulse Ox 97% on R/A; rk2 19:44 BP 151 / 87; Pulse 74; Resp 18; Pulse Ox 100% on R/A; tl3 15:23 Body Mass Index 28.48 (95.25 kg, 182.88 cm) la1 ED Course: 15:09 Patient arrived in ED. mr 15:23 Triage completed. la1 15:24 Arm band placed on left wrist. la1 15:31 Kat Kirkland, RN is Primary Nurse. rk2 15:41 Jesus Baptsite MD is Attending Physician. wa 16:30 Patient has correct armband on for positive identification. Bed in low position. Call rk2 light in reach. postdoctoral scientist on. Pulse ox on. 16:42 Soft Tissue Neck Wo Contr Sent. rk2 16:42 CT Chest Wo Con Sent. rk2 16:42 Chest Pa And Lat (2 Views) XRAY Sent. rk2 16:48 CT completed. Patient moved to CT via wheelchair. Patient moved to radiology. cw1 16:49 CT Chest Wo Con In Process Unspecified. EDMS 16:49 Soft Tissue Neck Wo Contr In Process Unspecified. EDMS 16:56 Chest Pa And Lat (2 Views) XRAY In Process Unspecified. EDNC 19:30 Keya Pardo MD is Referral Physician. wy 19:44 No provider procedures requiring assistance completed. IV discontinued, intact, tl3 bleeding controlled, No redness/swelling at site. Pressure dressing applied. Administered Medications: No medications were administered Outcome: 19:31 Discharge ordered by . wa 19:44 Discharged to home ambulatory. tl3 19:44 Condition: good 19:44 Discharge instructions given to patient, Instructed on discharge instructions, follow up and referral plans. Demonstrated understanding of instructions, follow-up care. 19:46 Patient left the ED. tl3 Signatures: Dispatcher [employer] Piper Sweeney mr TineoAziza cw1 Anthony Franklin, RN RN la1 Jesus Baptiste MD MD wa Kidder, Rhonda, RN RN rk2 Sophia Gilman, RN RN tl3 Corrections: (The following items were deleted from the chart) 18:31 18:27 Reassessment: laya saif
--- NOTE | 2017-08-11 19:31 | EDPHYS ---
Physician Documentation [facility] Name: Akin Pugh Age: 47 yrs Sex: Male : 1970 Arrival Date: 08/11/2017 Time: 15:09 Bed 30 Private MD: ED Physician Jesus Baptiste HPI: 08/11 16:27 This 47 yrs old Male presents to ER via Ambulatory with complaints of Cougin wa up blood, Trach Problem. 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 states cough wa copious amount of blood through trach since last night. Denies SOB, dizziness, or chest pain. Onset: The symptoms/episode began/occurred yesterday. Severity of symptoms: At their worst the symptoms were moderate, in the emergency department the symptoms are unchanged. Modifying factors: The symptoms are alleviated by nothing, the symptoms are aggravated by coughing spells. Associated signs and symptoms: Pertinent negatives: chest pain, ear ache, fever, nausea, rhinorrhea, sore throat, vomiting. The patient has experienced a previous episode. The patient has not recently seen a physician. Dr. Lin placed the trach in this hsp. Historical: - Allergies: 15:23 Iodine; la1 - PMHx: 15:23 Asthma; COPD; throat CA; la1 - Immunization history:: Adult Immunizations up to date. - Social history:: Smoking status: Patient/guardian denies using tobacco. - Family history:: not pertinent. - Hospitalizations: : No recent hospitalization is reported. - History obtained from: spouse, . ROS: 16:30 Constitutional: Negative for fever, chills, and weight loss, Eyes: Negative for injury, wa pain, redness, and discharge, Cardiovascular: Negative for chest pain, palpitations, and edema, Respiratory: Negative for shortness of breath, cough, wheezing, and pleuritic chest pain, Abdomen/GI: Negative for abdominal pain, nausea, vomiting, diarrhea, and constipation, Back: Negative for injury and pain, : Negative for injury, bleeding, discharge, and swelling, MS/Extremity: Negative for injury and deformity, Skin: Negative for injury, rash, and discoloration, Neuro: Negative for headache, weakness, numbness, tingling, and seizure. 16:30 ENT: Negative for injury or acute deformity, drainage from ear(s). 16:30 Neck: Positive for trach frontal lower neck, Negative for stiffness, swelling, swollen nodes, tenderness. 16:30 All other systems are negative. Exam: 16:31 Constitutional: This is a well developed, well nourished patient who is awake, alert, wa and in no acute distress. Head/Face: Normocephalic, atraumatic. Eyes: Pupils equal round and reactive to light, extra-ocular motions intact. Lids and lashes normal. Conjunctiva and sclera are non-icteric and not injected. Cornea within normal limits. Periorbital areas with no swelling, redness, or edema. Chest/axilla: Normal chest wall appearance and motion. Nontender with no deformity. No lesions are appreciated. Cardiovascular: Regular rate and rhythm with a normal S1 and S2. No gallops, murmurs, or rubs. Normal PMI, no JVD. No pulse deficits. Respiratory: Lungs have equal breath sounds bilaterally, clear to auscultation and percussion. No rales, rhonchi or wheezes noted. No increased work of breathing, no retractions or nasal flaring. Abdomen/GI: Soft, non-tender, with normal bowel sounds. No distension or tympany. No guarding or rebound. No evidence of tenderness throughout. Back: No spinal tenderness. No costovertebral tenderness. Full range of motion. Skin: Warm, dry with normal turgor. Normal color with no rashes, no lesions, and no evidence of cellulitis. MS/ Extremity: Pulses equal, no cyanosis. Neurovascular intact. Full, normal range of motion. Neuro: Awake and alert, GCS 15, oriented to person, place, time, and situation. Cranial nerves II-XII grossly intact. Motor strength 5/5 in all extremities. Sensory grossly intact. Cerebellar exam normal. Normal gait. Psych: Awake, alert, with orientation to person, place and time. Behavior, mood, and affect are within normal limits. 16:31 ENT: Posterior pharynx: is normal. 16:31 Neck: noted trach intact. no active bleed. no swelling or crepitus on palpation. Vital Signs: 15:23 BP 142 / 93; Pulse 94; Resp 19; Temp 98.8; Pulse Ox 98% on R/A; Weight 95.25 kg; Height la1 6 ft. 0 in. (182.88 cm); 17:35 BP 107 / 63; Pulse 72; Resp 18; Pulse Ox 98% on R/A; rk2 18:16 BP 122 / 91; Pulse 72; Resp 18; Pulse Ox 97% on R/A; rk2 19:00 BP 151 / 87; Pulse 74; Resp 17; Pulse Ox 97% on R/A; rk2 19:44 BP 151 / 87; Pulse 74; Resp 18; Pulse Ox 100% on R/A; tl3 15:23 Body Mass Index 28.48 (95.25 kg, 182.88 cm) la1 MDM: 15:41 Patient medically screened. wa 16:32 Differential Diagnosis: Other h/o CA s/p trach, s/p bleed. will monitor while we wa investigated for sorce. 17:27 Data reviewed: vital signs, nurses notes, lab test result(s), radiologic studies. Test wa interpretation: by ED physician or midlevel provider: labs noted for leukocytosis. CXR, CT neck and CT chest shows no interval change apart from recent findings. . Special discussion: pt stable in ED. no copious bleed from trach. spoke with Dr. Lin, in route to ED to perform laryngoscopy. . 19:13 Response to treatment: the patient's symptoms have markedly improved after treatment. ga ED course: pt was scoped with laryngoscope by Dr. Lin. trach changed. she advises to d/c home with f/u. 08/11 16:06 Order name: Basic Metabolic Panel; Complete Time: 17:17 ga 08/11 16:06 Order name: CBC with Diff; Complete Time: 17:17 ga 08/11 16:06 Order name: LFT's; Complete Time: 17:17 ga 08/11 16:06 Order name: Magnesium; Complete Time: 17:17 ga 08/11 16:06 Order name: PT-INR; Complete Time: 17:17 ga 08/11 16:06 Order name: Chest Pa And Lat (2 Views) XRAY; Complete Time: 17:17 08/11 16:06 Order name: IV Start; Complete Time: 16:25 08/11 16:06 Order name: Cardiac monitoring; Complete Time: 16:34 ga 08/11 16:06 Order name: IV Saline Lock; Complete Time: 16:25 ga 08/11 16:06 Order name: O2 Per Protocol; Complete Time: 16:35 ga 08/11 16:06 Order name: O2 Sat Monitoring; Complete Time: 16:35 ga 08/11 16:10 Order name: CT Chest Wo Con; Complete Time: 17:16 ga 08/11 16:12 Order name: Soft Tissue Neck Wo Contr; Complete Time: 17:15 EDMS Administered Medications: No medications were administered Disposition: 08/11/17 19:31 Discharged to Home. Impression: Hemoptysis, Tracheostomy complication. - Condition is Stable. - Discharge Instructions: Hemoptysis, [id number]. - Prescriptions for Augmentin 875- 125 mg Oral Tablet - take 1 tablet by ORAL route every 12 hours for 7 days; 14 tablet. - Medication Reconciliation Form, Thank You Letter, Antibiotic Education, Prescription Opioid Use form. - Follow up: Keya Pardo MD; When: 2 - 3 days; Reason: Recheck today's complaints. - Problem is new. - Symptoms have improved. - Notes: follow up with Dr. Pardo as discussed with you. return for profuse coughing up blood Signatures: Dispatcher [employer] EDMS Anthony Franklin RN RN la1 Jesus Baptiste MD MD ga Sophia Gilman RN RN tl3 Corrections: (The following items were deleted from the chart) 19:46 19:31 08/11/2017 19:31 Discharged to Home. Impression: Hemoptysis; Tracheostomy tl3 complication. Condition is Stable. Forms are Medication Reconciliation Form, Thank You Letter, Antibiotic Education, Prescription Opioid Use. Follow up: Keya Pardo; When: 2 - 3 days; Reason: Recheck today's complaints. Problem is new. Symptoms have improved. wa
[2017-08-11 19:50] VITALS: TEMP 98.8
[2017-08-11 19:54] VITALS: BP 151/87
[2017-08-11 19:55] VITALS: O2SAT 100
--- NOTE | 2017-08-14 08:10 | P.CNS ---
Date of Consult: 08/11/17 I was called at approximately [id number] regarding bleeding from trach site. 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 If is pending arrangements for definitive chemo/radiation therapy. He has not yet had dental extractions. He recently underwent PET for staging and I pending FU with [facility] regarding results. Regarding current symptoms, he reports that he was at home on SaturdayAugust 10 and coughed up a moderate amount of blood. He did not have any specific pain but the coughing up of blood continued intermittantly and he was concerned and came to the ER. He underwent non-contrasted CT neck due to iodine allergy. PE: VSS. NAD. PERRL, EOM. OC/OP WML. Nares patent. External ears normal. FOL performed at the bedside shows a streak of dark/old blood in the laryngeal introitus. Exam limited by excess gagging but there is not active bleeding noted. 6CSF Shiley is in place without IC. Patient/ state that when the IC in in place, it feels obstructed like he can't breath. He phonates moderately well with finger occlusion. No blood is noted externally on the neck. FOL through the trach tube reveals mild-moderate thick white and slightly blood- stained secretions. The trachea, eusebio, and main stem bronchi appear clear with no blood or ulcerations. A new 6CSF trach tube is obtained and a trach change is performed. Upon removal of the trach tube, there is a small area of granulation on the left aspect of the stoma without active bleeding. The trach tract is a little granulated/irritated appearing. FOL is repeated without any trach tube in place. The anterior wall of the trachea is smooth and health appear with no evidence of ulceration or irritation. Clinically, there is no evidence of tracheo-inominate fistula or impending fistula. The 6CSF is replaced without difficulty, including the inner cannula. After several minutes , the patient calms and feels breathing is good. We discussed option of up-sizing to 8CFS but I think this would impair use of PMV and ability to phonate. We discussed proper trach care including use of IC and removal of PMV at night. We discussed use of alternate IC at night and limited use of credit review manager when showing (if tolerated). Patient is capable of self removal of IC, indicating safety of capping temporarily to avoid water going in to the trach/trach tube. We discussed importance of follow up with [facility] and with Dr. Kumar for dental extractions prior to radiation treatment. I encouraged them to inquire with the Medicaid office regarding application to aid in financial burden of treatment.
== END 2017-08-11 19:46 | disposition home or self-care (01) ==
LOC: ER 15:06
DX: J95.00 Unspecified tracheostomy complication (principal); Z85.12 Personal history of malignant neoplasm of trachea; Z91.048 Other nonmedicinal substance allergy status
CPT/HCPCS: 36415; 70490; 71046; 71250; 80048; 80076; 83735; 85025; 85610; 99284

== ENCOUNTER 2017-10-05 17:51 | Observation (INO) | payer MEDICAID ==
[2017-10-05 19:27] LABS: Absolute Lymphocytes (CBC) 0.5 K/uL (0.7-4.9); Absolute Monocytes 1.4 K/uL (0.1-1.3); Absolute Neutrophil 9.1 K/uL (1.8-8.0); Basophils % 0.6 % (0-1.3); Eosinophils % 0.4 % (0-4.4); Hematocrit 36.6 % (39.6-49.0); Lymphocytes % 4.2 % (15.3-44.8); MCH 31.2 pg (27.0-35.0); MCV 90.9 fL (80-100); MPV 8.6 fL (7.6-11.3); Monocytes % 12.3 % (3.3-12.3); RBC Red Blood Cell Count 4.03 M/uL (4.33-5.43)
[2017-10-05 19:29] LABS: Protime INR 1.19
[2017-10-05] MEDS ORDERED: IPRATROPIUM BROM 0.5MG/2.5ML ONE (19:33)
[2017-10-05] MEDS ORDERED: NA CHLORIDE 0.9% 1,000 ML ONE (19:34)
[2017-10-05] MEDS ORDERED: LEVALBUTEROL 1.25 MG/3 ML NEB ONE ×2 (19:34→20:05)
[2017-10-05] MEDS ORDERED: VANCOMYCIN 1 GM/250 ML BAG ONE (19:34)
[2017-10-05] MEDS ORDERED: PIPER/TAZO/NS 3.375gm 3.375 GM/100 ML BAG ONE (19:34)
[2017-10-05 19:46] LABS: ALT/SGPT 21 U/L (12-78); AST/SGOT 8 U/L (15-37); Albumin 3.2 g/dL (3.4-5.0); Alkaline Phosphatase 111 U/L (45-117); BUN Blood Urea Nitrogen 11 mg/dL (7-18); Bicarbonate 28 mmol/L (21-32); Bilirubin Direct 0.1 mg/dL (0-0.2); Bilirubin Total 0.6 mg/dL (0.2-1.0); CKMB Creatine Kinase MB < 1.0 ng/mL (0.3-3.6); Creatine Phosphokinase 34 U/L (39-308); Glucose Level 91 mg/dL (74-106); Magnesium 2.1 mg/dL (1.8-2.4); NT PRO-BNP 60 pg/mL (<125); Potassium 3.6 mmol/L (3.5-5.1); Protein, Total 7.1 g/dL (6.4-8.2); Sodium Level 137 mmol/L (136-145)
--- NOTE | 2017-10-05 19:49 | EDPHYS ---
Physician Documentation [facility] Name: Akin Pugh Age: 47 yrs Sex: Male : 1970 Arrival Date: 10/05/2017 Time: 17:55 Bed 13 Private MD: None, None ED Physician Ren Bruner HPI: 10/05 18:38 This 47 yrs old Male presents to ER via Ambulatory with complaints of kishan Breathing Difficulty, Abdominal Cramping. 18:38 The patient has shortness of breath at rest, with light activity. Onset: The kishan symptoms/episode began/occurred 2 day(s) ago. Duration: The symptoms are continuous, and are steadily getting worse. The patient's shortness of breath has no apparent modifying factors. Associated signs and symptoms: The patient has no apparent associated signs or symptoms. The patient has not experienced similar symptoms in the past. Historical: - Allergies: 18:06 Iodine; hj - PMHx: 18:06 Asthma; COPD; THROAT CA; hj - PSHx: 18:06 trach; Appendectomy; hj - Immunization history:: Adult Immunizations up to date. - Social history:: Smoking status: Patient/guardian denies using tobacco, Patient/guardian denies using alcohol. - Ebola Screening: : Patient negative for fever greater than or equal to 101.5 degrees Fahrenheit, and additional compatible Ebola Virus Disease symptoms Patient denies exposure to infectious person Patient denies travel to an Ebola-affected area in the 21 days before illness onset. - Family history:: not pertinent. ROS: 18:38 Constitutional: Negative for fever, chills, and weight loss, Eyes: Negative for injury, kishan pain, redness, and discharge, ENT: Negative for injury, pain, and discharge, Neck: Negative for injury, pain, and swelling, Cardiovascular: Negative for chest pain, palpitations, and edema, Abdomen/GI: Negative for abdominal pain, nausea, vomiting, diarrhea, and constipation, Back: Negative for injury and pain, : Negative for injury, bleeding, discharge, and swelling, MS/Extremity: Negative for injury and deformity, Skin: Negative for injury, rash, and discoloration, Neuro: Negative for headache, weakness, numbness, tingling, and seizure, Psych: Negative for depression, anxiety, suicide ideation, homicidal ideation, and hallucinations, Allergy/Immunology: Negative for hives, rash, and allergies, Endocrine: Negative for neck swelling, polydipsia, polyuria, polyphagia, and marked weight changes, Hematologic/Lymphatic: Negative for swollen nodes, abnormal bleeding, and unusual bruising. 18:38 Respiratory: Positive for cough, shortness of breath, at rest. tracheostomy. Exam: 18:38 Constitutional: This is a well developed, well nourished patient who is awake, alert, kishan and in no acute distress. Head/Face: Normocephalic, atraumatic. Eyes: Pupils equal round and reactive to light, extra-ocular motions intact. Lids and lashes normal. Conjunctiva and sclera are non-icteric and not injected. Cornea within normal limits. Periorbital areas with no swelling, redness, or edema. Neck: Trachea midline, no thyromegaly or masses palpated, and no cervical lymphadenopathy. Supple, full range of motion without nuchal rigidity, or vertebral point tenderness. No Meningismus. Chest/axilla: Normal chest wall appearance and motion. Nontender with no deformity. No lesions are appreciated. Cardiovascular: Regular rate and rhythm with a normal S1 and S2. No gallops, murmurs, or rubs. Normal PMI, no JVD. No pulse deficits. Respiratory: Lungs have equal breath sounds bilaterally, clear to auscultation and percussion. No rales, rhonchi or wheezes noted. No increased work of breathing, no retractions or nasal flaring. Abdomen/GI: Soft, non-tender, with normal bowel sounds. No distension or tympany. No guarding or rebound. No evidence of tenderness throughout. Back: No spinal tenderness. No costovertebral tenderness. Full range of motion. Male : Normal genitalia with no discharge or lesions. Skin: Warm, dry with normal turgor. Normal color with no rashes, no lesions, and no evidence of cellulitis. MS/ Extremity: Pulses equal, no cyanosis. Neurovascular intact. Full, normal range of motion. Neuro: Awake and alert, GCS 15, oriented to person, place, time, and situation. Cranial nerves II-XII grossly intact. Motor strength 5/5 in all extremities. Sensory grossly intact. Cerebellar exam normal. Normal gait. Psych: Awake, alert, with orientation to person, place and time. Behavior, mood, and affect are within normal limits. 18:38 ENT: Posterior pharynx: Airway: normal, no evidence of obstruction, Tonsils: are normal in appearance, Uvula: normal, midline. 18:38 Abdomen/GI: Inspection: abdomen appears normal, Bowel sounds: normal, Palpation: mild abdominal tenderness, moderate abdominal tenderness, in the right lower quadrant and left lower quadrant. Vital Signs: 18:07 BP 121 / 82; Pulse 84; Resp 18; Temp 99.2(O); Pulse Ox 98% on R/A; Weight 90.72 kg; hj Height 6 ft. 0 in. (182.88 cm); Pain 10/10; 19:39 BP 113 / 82; Pulse 98; Resp 20; Pulse Ox 96% on R/A; tl2 21:30 BP 109 / 63; Pulse 84; Resp 20; Pulse Ox 96% on R/A; tl2 18:07 Body Mass Index 27.13 (90.72 kg, 182.88 cm) MDM: 18:30 Patient medically screened[address] [facility] 18:57 Data reviewed: vital signs, nurses notes, lab test result(s), EKG, radiologic studies, [facility] CT scan, MRI. 10/05 18:48 Order name: Basic Metabolic Panel; Complete Time: 19:[address] [facility] 10/05 18:48 Order name: CBC with Diff; Complete Time: 19:[address] [facility] 10/05 18:48 Order name: Ckmb; Complete Time: 19:[address] [facility] 10/05 18:48 Order name: CPK; Complete Time: 19:[address] [facility] 10/05 18:48 Order name: LFT's; Complete Time: 19:[address] [facility] 10/05 18:48 Order name: Magnesium; Complete Time: 19:[address] [facility] 10/05 18:48 Order name: NT PRO-BNP; Complete Time: 19:[address] [facility] 10/05 18:48 Order name: PT-INR; Complete Time: 19:[address] [facility] 10/05 18:48 Order name: Ptt, Activated; Complete Time: 19:[address] [facility] 10/05 18:48 Order name: Troponin (emerg Dept Use Only); Complete Time: 19:[address] [facility] 10/05 18:48 Order name: XRAY Chest (1 view); Complete Time: 20:[address] [facility] 10/05 18:48 Order name: Blood Culture Adult (2) [facility] 10/05 18:48 Order name: Influenza Screen (a \T\ B); Complete Time: 20:[address] [facility] 10/05 18:48 Order name: Sputum Culture [facility] 10/05 18:48 Order name: EKG; Complete Time: 18:[address] [facility] 10/05 18:48 Order name: Cardiac monitoring; Complete Time: 19:[address] [facility] 10/05 18:48 Order name: EKG - Nurse/Tech; Complete Time: 19:[address] [facility] 10/05 18:48 Order name: IV Saline Lock; Complete Time: 19:[address] [facility] 10/05 18:48 Order name: Labs collected and sent; Complete Time: 19:[address] [facility] 10/05 18:48 Order name: O2 Per Protocol; Complete Time: 19:[address] [facility] 10/05 18:48 Order name: CT Abd/Pelvis - Without Cont; Complete Time: 20:[address] [facility] 10/05 18:52 Order name: Soft Tissue Neck Wo Contr; Complete Time: 20:21 [facility] 10/05 19:59 Order name: CONS Physician Consult EDMS 10/05 18:48 Order name: O2 Sat Monitoring; Complete Time: 19:[address] [facility] Administered Medications: 19:56 Drug: Xopenex 1.25 mg Route: Inhalation; tl2 19:56 Drug: AtroVENT Aerosol 0.5 mg Route: Inhalation; tl2 19:56 Drug: NS 0.9% 1000 ml Route: IV; Rate: 125 ml/hr; Site: right wrist; tl2 22:15 Follow up: IV Status: Infusion continued upon admission tl2 20:09 Drug: Zosyn 3.375 grams Route: IVPB; Infused Over: 60 mins; Site: right wrist; tl2 20:39 Follow up: IV Status: Completed infusion tl2 20:09 Drug: SOLU-Medrol 125 mg Route: IVP; Site: right wrist; tl2 20:39 Follow up: Response: No adverse reaction tl2 20:39 Drug: vancoMYCIN 1 grams Route: IVPB; Infused Over: 2 hrs; Site: right wrist; tl2 22:15 Follow up: IV Status: Infusion continued upon admission tl2 21:35 Not Given (sent with pt upstairs): Xopenex 2.5 mg Inhalation once tl2 Disposition: 10/05/17 19:48 Hospitalization ordered by Sara Vilchis for Observation. Preliminary diagnosis are Dyspnea, Tracheostomy status, Abdominal tenderness, Chronic obstructive pulmonary disease with (acute) exacerbation. - Bed requested for Telemetry/MedSurg (observation). - Status is Observation. tl2 - Condition is Fair. - Problem is new. - Symptoms have improved. UTI on Admission? No Signatures: Dispatcher [employer] EDMS Jasmyn Das RN RN Ren Parisi MD MD cha Joaquin, Henry, RN RN Cate Blackwell RN RN tl2 Corrections: (The following items were deleted from the chart) 19:52 19:48 Hospitalization Ordered by Sara Vilchis MD for Observation. Preliminary diagnosis is Dyspnea; Tracheostomy status; Abdominal tenderness; Chronic obstructive pulmonary disease with (acute) exacerbation. Bed requested for Telemetry/MedSurg (observation). Status is Observation. Condition is Fair. Problem is new. Symptoms have improved. UTI on Admission? No. [facility] 22:16 19:52 10/05/2017 19:48 Hospitalization Ordered by Sara Vilchis MD for Observation. tl2 Preliminary diagnosis is Dyspnea; Tracheostomy status; Abdominal tenderness; Chronic obstructive pulmonary disease with (acute) exacerbation. Bed requested for Telemetry/MedSurg (observation). Status is Observation. Condition is Fair. Problem is new. Symptoms have improved. UTI on Admission? No.
--- NOTE | 2017-10-05 19:49 | ER ---
Nurse's Notes [facility] Name: Akin Pugh Age: 47 yrs Sex: Male : 1970 Arrival Date: 10/05/2017 Time: 17:55 Bed 13 Private MD: None, None Diagnosis: Dyspnea;Tracheostomy status;Abdominal tenderness;Chronic obstructive pulmonary disease with (acute) exacerbation Presentation: 10/05 18:02 Presenting complaint: states: hx of stage 3 throat cancer, presence of trache, hj complaints of greenish discharge on the trache that 2 weeks ago, trouble breathing and stomach pain started today; denies diarrhea; reports fever and chills; reports nausea and vomiting;. Transition of care: patient was not received from another setting of care. Onset of symptoms was October 05, 2017. Risk Assessment: Do you want to hurt yourself or someone else? Patient reports no desire to harm self or others. Initial Sepsis Screen: Does the patient meet any 2 criteria? No. Patient's initial sepsis screen is negative. Does the patient have a suspected source of infection? Yes: Productive cough/pneumonia. Care prior to arrival: None. 18:02 Method Of Arrival: Ambulatory 18:02 Acuity: PAO 3 hj Triage Assessment: 18:07 General: Appears in no apparent distress. uncomfortable, Behavior is calm, cooperative, hj appropriate for age. Respiratory: Reports labored breathing Onset: The symptoms/episode began/occurred suddenly, Historical: - Allergies: 18:06 Iodine; hj - PMHx: 18:06 Asthma; COPD; THROAT CA; hj - PSHx: 18:06 trach; Appendectomy; hj - Immunization history:: Adult Immunizations up to date. - Social history:: Smoking status: Patient/guardian denies using tobacco, Patient/guardian denies using alcohol. - Ebola Screening: : Patient negative for fever greater than or equal to 101.5 degrees Fahrenheit, and additional compatible Ebola Virus Disease symptoms Patient denies exposure to infectious person Patient denies travel to an Ebola-affected area in the 21 days before illness onset. - Family history:: not pertinent. Screenin:06 Abuse screen: Denies threats or abuse. Denies injuries from another. Nutritional hj screening: No deficits noted. Tuberculosis screening: No symptoms or risk factors identified. Fall Risk None identified. Assessment: 18:06 Pain: Complains of pain in abdomen and neck Pain currently is 10 out of 10 on a pain hj scale. Cardiovascular: Rhythm is. Respiratory: Airway presence of tracheostomy 18:07 Respiratory: Respiratory effort is even, unlabored. hj 18:45 General: Appears uncomfortable, well groomed, well developed, well nourished, Behavior tl3 is calm, cooperative, appropriate for age. Pain: Complains of pain in left lower quadrant and right lower quadrant and neck and abdomen. Neuro: No deficits noted. Level of Consciousness is awake, alert, obeys commands, Oriented to person, place, time, situation, Appropriate for age. Cardiovascular: Heart tones S1 S2 present Patient's skin is warm and dry. Respiratory: Airway is patent Respiratory effort is even, unlabored, Respiratory pattern is regular, symmetrical, Breath sounds are clear bilaterally. GI: Abdomen is round Bowel sounds present X 4 quads. Abdomen is tender to palpation in left lower quadrant and right lower quadrant. GI: Parent/caregiver reports the patient having cramping. : No signs and/or symptoms were reported regarding the genitourinary system. EENT: No signs and/or symptoms were reported regarding the EENT system. Derm: No signs and/or symptoms reported regarding the dermatologic system. Musculoskeletal: No signs and/or symptoms reported regarding the musculoskeletal system. 19:10 Reassessment: Patient appears in no apparent distress at this time. I have reviewed tl2 previous assessment and received report from off going nurse. I agree with prior assessment. 19:35 Reassessment: RT at bedside suctioning and cleaning trach, Pt tolerating well. tl2 Vital Signs: 18:07 BP 121 / 82; Pulse 84; Resp 18; Temp 99.2(O); Pulse Ox 98% on R/A; Weight 90.72 kg; Height 6 ft. 0 in. (182.88 cm); Pain 10/10; 19:39 BP 113 / 82; Pulse 98; Resp 20; Pulse Ox 96% on R/A; tl2 21:30 BP 109 / 63; Pulse 84; Resp 20; Pulse Ox 96% on R/A; tl2 18:07 Body Mass Index 27.13 (90.72 kg, 182.88 cm) ED Course: 17:55 Patient arrived in ED. mr 17:55 None, None is Private Physician. mr 18:05 Triage completed. hj 18:07 Arm band placed on right wrist. hj 18:07 Patient has correct armband on for positive identification. Placed in gown. Bed in low hj position. Call light in reach. Side rails up X 1. 18:30 Ren Bruner MD is Attending Physician. kishan 18:41 Sophia Gilman, RN is Primary Nurse. tl3 18:45 No provider procedures requiring assistance completed. tl3 19:05 EKG done, by ED staff, reviewed by Ren Bruner MD. cc 19:12 Radiology exam delayed due to pt having trach cleaned, nurse to call. bq 19:20 Inserted saline lock: 20 gauge in right wrist, using aseptic technique. Blood collected.tl2 19:38 CT Abd/Pelvis - Without Cont In Process Unspecified. EDMS 19:38 Soft Tissue Neck Wo Contr In Process Unspecified. EDMS 19:42 Sara Vilchis MD is Hospitalizing Provider. kishan 19:44 XRAY Chest (1 view) In Process Unspecified. EDMS 22:15 Patient admitted, IV remains in place. tl2 Administered Medications: 19:56 Drug: Xopenex 1.25 mg Route: Inhalation; tl2 19:56 Drug: AtroVENT Aerosol 0.5 mg Route: Inhalation; tl2 19:56 Drug: NS 0.9% 1000 ml Route: IV; Rate: 125 ml/hr; Site: right wrist; tl2 22:15 Follow up: IV Status: Infusion continued upon admission tl2 20:09 Drug: Zosyn 3.375 grams Route: IVPB; Infused Over: 60 mins; Site: right wrist; tl2 20:39 Follow up: IV Status: Completed infusion tl2 20:09 Drug: SOLU-Medrol 125 mg Route: IVP; Site: right wrist; tl2 20:39 Follow up: Response: No adverse reaction tl2 20:39 Drug: vancoMYCIN 1 grams Route: IVPB; Infused Over: 2 hrs; Site: right wrist; tl2 22:15 Follow up: IV Status: Infusion continued upon admission tl2 21:35 Not Given (sent with pt upstairs): Xopenex 2.5 mg Inhalation once tl2 Outcome: 19:48 Decision to Hospitalize by Provider. kishan 22:14 Admitted to Med/surg accompanied by tech, family with patient, via wheelchair, room tl2 231, Report called to JEAN Patrick 22:14 Condition: stable 22:14 Discharge instructions given to patient, family, Instructed on the need for admit. 22:16 Patient left the ED. tl2 Signatures: Dispatcher [employer] Ren Weaver MD MD cha Rivera, Maria mr Burger Nicky Dawn Henry, RN RN Cate Blackwell RN RN tl2 Sophia Gilman RN RN tl3 Corrections: (The following items were deleted from the chart) 18:08 18:07 Resp 18bpm; Pulse Ox 98% RA; Temp 99.2F Oral; 90.72 kg; Height 6 ft. 0 in.; BMI: hj 27.1; Pain 10/10; hj 18:09 18:07 Pulse 84bpm; Resp 18bpm; Pulse Ox 98% RA; Temp 99.2F Oral; 90.72 kg; Height 6 ft. hj 0 in.; BMI: 27.1; Pain 10/10; hj
--- NOTE | 2017-10-05 19:53 | RAD REPORT ---
EXAM DESCRIPTION: CT - Abdomen Pelvis Wo Contrast - 10/05/2017 7:37 pm CLINICAL HISTORY: Abdominal pain nausea and vomiting COMPARISON: None TECHNIQUE: Computed axial tomography of the abdomen and pelvis was obtained. IV and oral contrast we re not requested. All CT scans are performed using dose optimization technique as appropriate and may include automated exposure control or mA/KV adjustment according to patient size. FINDINGS: The evaluation of solid organs, vessels and bowel is limited secondary to the lack of con trast administration. The liver, spleen, pancreas, adrenals and kidneys appear grossly normal. There is no evidence of diverticulitis. IMPRESSION: No acute abnormality is displayed.
--- NOTE | 2017-10-05 20:00 | RAD REPORT ---
EXAM DESCRIPTION: CT - Soft Tissue Neck Wo Contr - 10/05/2017 7:38 pm CLINICAL HISTORY: Throat cancer/neck pain/dysphagia COMPARISON: July 2017 TECHNIQUE: Computed axial tomography of the neck was obtained. IV contrast was not requested. Coron al and sagittal reconstruction was performed. All CT scans are performed using dose optimization technique as appropriate and may include automated exposure control or mA/KV adjustment according to patient size. FINDINGS: A tracheostomy tube is in place. The soft tissue involving the left vallecula, piriform sinus and glottis has diminished since the césar or exam and is mild The parotid, submandibular and thyroid glands appear unremarkable. No lymphadenopathy is seen Development of fluid within the left mastoid is seen. IMPRESSION: The patient's known mass within the left vallecula, piriform sinus and glottis has dimin ished since the prior exam and is minimal Fluid within the left mastoid may indicate mastoiditis
--- NOTE | 2017-10-05 20:02 | RAD REPORT ---
EXAM DESCRIPTION: dEin Single View10/05/2017 7:48 pm CLINICAL HISTORY: cough COMPARISON: none FINDINGS: The lungs appear clear of acute infiltrate. The heart is normal size. A tracheostomy tube is in place IMPRESSION: No acute abnormalities displayed
[2017-10-05] MEDS ORDERED: METHYLPREDNISOLONE 125 MG INJ ONE (20:05)
[2017-10-05] MEDS ORDERED: ONDANSETRON 4 MG/2 ML VIAL IV PRN (21:03)
[2017-10-05] MEDS ORDERED: ACETAMINOPHEN 500 MG TAB PO PRN (21:03)
[2017-10-05] MEDS ORDERED: ALBUTEROL 2.5 MG/3 ML NEB SOL NEB SCH (22:00)
[2017-10-05] MEDS ORDERED: NA CHLORIDE 0.9% 1,000 ML IV SCH (23:00)
[2017-10-05 23:14] VITALS: BMI 27.1
[2017-10-06] MEDS: METHYLPREDNISOLONE 125 MG INJ IV SCH ×2 (00:44→05:35)
[2017-10-06] MEDS: MORPHINE 4 MG/ML SYR IV PRN ×5 (00:44→20:09)
[2017-10-06] MEDS ORDERED: PIPER/TAZO/NS 3.375gm 3.375 GM/100 ML BAG ONE ×2 (00:45→05:04)
[2017-10-06 05:03] LABS: Absolute Lymphocytes (CBC) 0.1 K/uL (0.7-4.9); Absolute Monocytes 0.1 K/uL (0.1-1.3); Absolute Neutrophil 9.1 K/uL (1.8-8.0); Basophils % 0.1 % (0-1.3); Hematocrit 34.4 % (39.6-49.0); Lymphocytes % 1.2 % (15.3-44.8); MCH 31.8 pg (27.0-35.0); MCV 91.8 fL (80-100); MPV 8.5 fL (7.6-11.3); Monocytes % 1.2 % (3.3-12.3); RBC Red Blood Cell Count 3.74 M/uL (4.33-5.43)
[2017-10-06 05:14] LABS: BUN Blood Urea Nitrogen 10 mg/dL (7-18); Bicarbonate 27 mmol/L (21-32); Glucose Level 196 mg/dL (74-106); HDL Cholesterol 26 mg/dL (40-60); LDL Cholesterol, Calculated 151 (<130); Magnesium 2.1 mg/dL (1.8-2.4); Phosphorus 2.9 mg/dL (2.5-4.9); Potassium 3.6 mmol/L (3.5-5.1); Sodium Level 137 mmol/L (136-145)
[2017-10-06] MEDS ORDERED: POTASSIUM CL SA 10 MEQ TAB PO ONE (05:16)
[2017-10-06 05:26] LABS: Anisocytosis 1+; Blood Morphology Comment NOTED (NOT SEEN); Platelet Estimate ADEQ
[2017-10-06] MEDS: PIPER/TAZO/NS 3.375gm 3.375 GM/100 ML BAG IVPB SCH ×4 (05:35→21:28)
[2017-10-06] MEDS: ENOXAPARIN 40 MG/0.4 ML SQ SCH (08:00)
--- NOTE | 2017-10-06 08:28 | P.HP ---
Certification for Inpatient Patient admitted to: Observation With expected LOS: <2 Midnights Patient will require the following post-hospital care: None Practitioner: I am a practitioner with admitting privileges, knowledge of patient current condition, hospital course, and medical plan of care. Services: Services provided to patient in accordance with Admission requirements found in Title 42 Section 412.3 of the Code of Federal Regulations Patient History Date of Service: 10/05/17 Reason for admission: Headache; fever; increased coughing congestion History of Present Illness: Patient is a 47-year-old gentleman who was diagnosed with stage III throat cancer. Patient has been getting chemotherapy and radiation and he has required a tracheostomy. Patient has been having pain in the left side of his scalp and he has had diminished hearing. The symptoms have been going on before he was diagnosed with this thorough cancer. However, once his throat cancer diagnosis was made he states that they never really looked into what was causing her pain around her left mastoid. Patient has also had increased greenish discharge from the tracheostomy. Patient's states that this has been getting worse in frequency and quantity. Patient was prescribed cephalexin by radiation oncologist. However, this has not benefitted the patient. Patient was running fever, shakes, and chills and he decided to come to the hospital for further evaluation. Patient's CT scan revealed left mastoiditis. Patient does not have pneumonia on his x-ray. It does sound like he may have developed a Pseudomonas bronchial infection. Consult Pulmonary and ENT for further treatment plan. Allergies iodine Allergy (Verified 07/11/17 09:32) Unknown levofloxacin [From Levaquin] Allergy (Verified 07/18/17 15:19) Itching - Past Medical/Surgical History Has patient received pneumonia vaccine in the past: Yes Diabetic: No -: Asthma -: Tobacco abuse -: COPD -: throat cancer -: Knee surgery -: Appendectomy -: Tracheostomy Psychosocial/ Personal History: Patient smokes regularly but plans to quit. - Family History Father Medical History: Heart disease Mother Medical History: Cancer, Other (see notes) - Social History Smoking Status: Former smoker Alcohol use: No CD- Drugs: No Caffeine use: Yes Place of Residence: Home Review of Systems 10-point ROS is otherwise unremarkable Physical Examination - Vital Signs Temperature: 98.5 F Blood Pressure: 113/64 Pulse: 51 Respirations: 18 Pulse Ox (%): 94 - Physical Exam General: Alert, In no apparent distress, Oriented x3 HEENT: Atraumatic, PERRLA, Mucous membr. moist/pink, Other (Pain along the left mastoid), EOMI, Sclerae nonicteric Neck: Supple, 2+ carotid pulse no bruit, No LAD, Without JVD or thyroid abnormality Respiratory: Other (Upper airway congestion) Cardiovascular: Regular rate/rhythm, Normal S1 S2 Gastrointestinal: Normal bowel sounds, Soft and benign, Non-distended, No tenderness Musculoskeletal: No clubbing, No swelling, No tenderness Integumentary: No rashes Neurological: Normal gait, Normal speech, Normal strength at 5/5 x4 extr, Normal tone, Sensation intact, Cranial nerves 3-12 intact, Normal affect Lymphatics: No axilla or inguinal lymphadenopathy - Studies Laboratory Data (last 24 hrs) 10/05/17 19:13: PT 14.1 H, INR 1.19, APTT 29.1 10/05/17 19:13: WBC 11.0 H, Hgb 12.6 L, Hct 36.6 L, Plt Count 188 10/05/17 19:13: Sodium 137, Potassium 3.6, BUN 11, Creatinine 0.80, Glucose 91, Magnesium 2.1, Total Bilirubin 0.6, AST 8 L, ALT 21, Alkaline Phosphatase 111 Assessment & Plan - Problems (Diagnosis) (1) Mastoiditis of left side Current Visit: Yes Status: Acute (2) Pseudomonas aeruginosa infection Current Visit: Yes Status: Acute (3) Fever Current Visit: Yes Status: Acute (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 Continue with IV antibiotics 2. Awaiting sputum culture 3. Repeat chest x-ray 4. Will proceed with CT scan of the chest if symptoms worsen 5. Pulmonary and ENT consultation 6. Continue with nebs as needed 7. O2 per protocol 8. Continue with gentle hydration 9. Repeat labs including CBC and renal function in a.m. 10. GI and DVT prophylaxis Discharge Plan: Home Plan to discharge in: Greater than 2 days - Advance Directives Does patient have a Living Will: No Does patient have a Durable POA for Healthcare: Yes - Code Status/Comfort Care Code Status Assessed: Yes Code Status: Full Code Critical Care: No Time Spent Managing PTS Care (In Minutes): 50
[2017-10-06] MEDS: CITALOPRAM 10 MG TABLET PO SCH (08:55)
[2017-10-06] MEDS ORDERED: CEFTRIAXONE 1 GM/NS 50 ML 1 GM/50 ML BAG IV SCH ×2 (09:00→21:03)
[2017-10-06] MEDS ORDERED: AZITHROMYCIN IV 500 MG in NA CHLORIDE 0.9% 250 ML IVPB SCH (09:00)
[2017-10-06] MEDS ORDERED: HYDROCODONE/APAP 5/325 MG TAB PO PRN (10:32)
--- NOTE | 2017-10-06 10:55 | EKG ---
Test Date: 2017-10-05 Test Time: 19:01:19 Sound Controller: DOC MEASUREMENT RESULTS: Intervals: Rate: 63 IA: 162 QRSD: 78 QT: 396 QTc: 405 [place]: P: 29 IA: 162 QRS: 35 T: 46 INTERPRETIVE STATEMENTS: Normal sinus rhythm Normal ECG Compared to ECG 07/13/2017 17:25:01 Sinus tachycardia no longer present Electronically Signed On 10-06-17 10:54:20 CDT by Hema Rojas
[2017-10-06] MEDS ORDERED: DEXAMETHASONE 4 MG TAB PO SCH (11:00)
[2017-10-06] MEDS: ARFORMOTEROL TARTRATE 15 MCG/2 ML VIAL.NEB NEB SCH ×2 (11:44→19:47)
--- NOTE | 2017-10-06 11:47 | P.PN ---
Subjective Date of Service: 10/06/17 Chief Complaint: Headache; fever; increased coughing congestion Pt seen and examined at bedside. Chart Reviewed. Case DW with pulmonology. Currently pt is feeling better than before. No drainage noted. Awaiting Sputum culture for now Review of Systems General: As per HPI Physical Examination - Vital Signs Temperature: 98.5 F Blood Pressure: 113/64 Pulse: 51 Respirations: 18 Pulse Ox (%): 94 - Physical Exam General: Alert, In no apparent distress, Oriented x3, Other (Trach in place) HEENT: Atraumatic, PERRLA, EOMI Neck: Supple, JVD not distended, Other (No Pain noted on the mastoid Process) Respiratory: Normal air movement, Expiratory wheezes, Inspiratory wheezes Cardiovascular: Regular rate/rhythm, Normal S1 S2 Gastrointestinal: Normal bowel sounds, No tenderness Musculoskeletal: No tenderness Integumentary: No rashes Neurological: Normal speech, Normal tone, Normal affect Lymphatics: No axilla or inguinal lymphadenopathy - Studies Laboratory Data (last 24 hrs) 10/05/17 19:13: PT 14.1 H, INR 1.19, APTT 29.1 10/05/17 19:13: WBC 11.0 H, Hgb 12.6 L, Hct 36.6 L, Plt Count 188 10/05/17 19:13: Sodium 137, Potassium 3.6, BUN 11, Creatinine 0.80, Glucose 91, Magnesium 2.1, Total Bilirubin 0.6, AST 8 L, ALT 21, Alkaline Phosphatase 111 Medications List Reviewed: Yes Assessment & Plan - Problems (Diagnosis) (1) COPD (chronic obstructive pulmonary disease) Current Visit: Yes Status: Acute Plan: COPD with Acute Exacerbation most likely infectious Etiology -Duonebs, Steriods and IV abx -Pulm consulted. 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
--- NOTE | 2017-10-06 11:48 | P.CNS ---
Date of Consult: 10/06/17 Reason for Consult: Shortness of breath and chest Chief Complaint: Headache; fever; increased coughing congestion History of Present Illness: Patient is 47 years of age. He is status post tracheostomy secondary to throat cancer is been receiving chemotherapy and radiation here in the cancer center the past 2 weeks is been complaining of worsening cough chest congestion patient precipitated by a slight fever former heavy smoker uses nebulizer on a p.r.n. be extensive workup only showed a mild mastoiditis Allergies iodine Allergy (Verified 07/11/17 09:32) Unknown levofloxacin [From Levaquin] Allergy (Verified 07/18/17 15:19) Itching Home Medications: Alprazolam [Xanax] 1 mg PO 30 MIN BEFORE HS 10/06/17 Citalopram [Celexa] 20 mg PO DAILY 10/06/17 Dexamethasone 4 mg PO SEECOM 10/06/17 Hydrocodone Bit/Acetaminophen [Hydrocodon-Acetaminophen 5-325] 1 each PO Q4HP PRN 10/06/17 Ondansetron [Zofran] 4 mg PO Q4HP PRN 10/06/17 - Past Medical/Surgical History Diabetic: No -: Asthma -: Tobacco abuse -: COPD -: throat cancer -: Knee surgery -: Appendectomy -: Tracheostomy Psychosocial/ Personal History: Patient smokes regularly but plans to quit. - Family History Father Medical History: Heart disease Mother Medical History: Cancer, Other (see notes) - Social History Smoking Status: Current every day smoker, Heavy Tobacco smoker (>10 cigarettes/ day) Alcohol use: No CD- Drugs: No Caffeine use: Yes Place of Residence: Home Review of Systems 10-point ROS is otherwise unremarkable General: Fever, Weakness Respiratory: Cough, Shortness of Breath Physical Examination Temp Pulse Resp BP Pulse Ox 98.5 F 51 18 113/64 94 10/06/17 08:28 10/06/17 08:28 10/06/17 08:28 10/06/17 08:28 10/06/17 08:28 General: Oriented x3 HEENT: Atraumatic Neck: Supple Respiratory: Clear to auscultation bilaterally Cardiovascular: No edema, Regular rate/rhythm, Normal S1 S2 Gastrointestinal: Normal bowel sounds, Soft and benign Musculoskeletal: No clubbing, No swelling Laboratory Data (last 24 hrs) 10/05/17 19:13: PT 14.1 H, INR 1.19, APTT 29.1 10/05/17 19:13: WBC 11.0 H, Hgb 12.6 L, Hct 36.6 L, Plt Count 188 10/05/17 19:13: Sodium 137, Potassium 3.6, BUN 11, Creatinine 0.80, Glucose 91, Magnesium 2.1, Total Bilirubin 0.6, AST 8 L, ALT 21, Alkaline Phosphatase 111 - Problems (1) Fever Current Visit: Yes Status: Acute Plan: Patient is 47 years of age with a history of presume COPD from smoking as a history of laryngeal cancer currently undergoing treatment with radiation and chemo patient has a trach as been gaining sterilely worse over the past 2 weeks admission precipitated by slight fever cough congestion worsening shortness of breath he probably has underlying obstructive airways disease is chest x-rays clear he also complained of some cramp in his abdomen CT scan of the abdomen is negative DT scan of the head shows possible mild mastoiditis on the left side chemistries unremarkable white count is normal cultures are pending patient is not had fever since admission continue with observation possible discharge tomorrow he probably benefit from a long-acting bronchodilator at home consider Advair Qualifiers: Fever type: unspecified Qualified Code(s): R50.9 - Fever, unspecified (2) Mastoiditis of left side Current Visit: Yes Status: Acute
[2017-10-06] MEDS ORDERED: ALBUTEROL 2.5 MG/3 ML NEB SOL NEB PRN (12:00)
[2017-10-06] MEDS: IPRATROPIUM BROM 0.5MG/2.5ML NEB SCH ×3 (12:00→19:47)
[2017-10-06] MEDS: predniSONE 20 MG TAB PO SCH ×2 (12:14→21:08)
[2017-10-06] MEDS ORDERED: ALPRAZOLAM 1 MG TABLET PO SCH (20:30)
[2017-10-06] MEDS ORDERED: METHYLPREDNISOLONE 125 MG INJ IV SCH (21:03)
[2017-10-06] MEDS ORDERED: IPRATROPIUM BROM 0.5MG/2.5ML NEB SCH (22:00)
[2017-10-07] MEDS: IPRATROPIUM BROM 0.5MG/2.5ML NEB SCH ×2 (01:29→08:42)
[2017-10-07 04:25] VITALS: TEMP 97
[2017-10-07 05:04] LABS: BUN Blood Urea Nitrogen 11 mg/dL (7-18); Bicarbonate 28 mmol/L (21-32); Glucose Level 141 mg/dL (74-106); Potassium 4.5 mmol/L (3.5-5.1); Sodium Level 141 mmol/L (136-145)
[2017-10-07] MEDS: PIPER/TAZO/NS 3.375gm 3.375 GM/100 ML BAG IVPB SCH (05:16)
[2017-10-07] MEDS: ARFORMOTEROL TARTRATE 15 MCG/2 ML VIAL.NEB NEB SCH (08:42)
[2017-10-07] MEDS: ENOXAPARIN 40 MG/0.4 ML SQ SCH (09:20)
[2017-10-07] MEDS: CITALOPRAM 10 MG TABLET PO SCH (09:20)
[2017-10-07] MEDS: predniSONE 20 MG TAB PO SCH (09:21)
[2017-10-07] MEDS: MORPHINE 4 MG/ML SYR IV PRN (09:24)
[2017-10-07 10:07] VITALS: BP 117/67
[2017-10-07 12:04] VITALS: O2SAT 95
--- NOTE | 2017-10-08 06:46 | DS ---
Date of Discharge: 10/07/2017 [employer] Pl[employer] Supervisor: Dr. Mejia with Pulmonology. Admitting Diagnoses: 1.Acute mastoiditis of the left side. 2.Pseudomonas aeruginosa infection. 3.Fever. 4.Laryngeal neoplasm. 5.Asthma. 6.Tobacco abuse. Discharge Diagnoses: 1.Acute chronic obstructive pulmonary disease exacerbation. 2.Mastoiditis on the left side. 3.Laryngeal neoplasm. 4.Nicotine dependence. Hospital Course: The patient is a 47-year-old male recently diagnosed with stage III throat cancer a nd laryngeal cancer, status post tracheostomy, currently on chemotherapy and radiation therapy, who c omes in with multiple complaints of headache, fever, cough, congestion, abdominal pain, and leg pain. The patient had significant workup done including CT scan of the head, which showed some mastoiditi s on the left side. Also, did not show any other changes. CT scan of the abdomen and pelvis was don e which did not show any acute changes. No evidence of diverticulitis. CT scan of the soft tissue o f the neck was done which showed known mass of the left vallecula, pyriform sinus, and glottis, dimin ished in size since prior exam. Fluid within the left mastoid may indicate mastoiditis. The patient was started on IV fluids. The patient is also seen by Pulmonology and his nebulizer treatments and medications were adjusted. His white count normalized. His electrolytes remained stable. The tropo shanti level was negative. The patient was tolerating his diet. Did not have any further nausea, vomit ing, or abdominal pain. His blood culture showed no growth. Influenza screen was done which was neg ative x2. Sputum culture showed normal maximo. He had been taking antibiotics prescribed to him by Dyan Jose, his radiation oncologist, and will complete those at home. Otherwise, the patient was d oing better, able to ambulate without any difficulty, tolerating his diet, saturating 97% on room air . Blood pressure stable with orthostatic vital signs negative. He does have mild bradycardia with a rate dips down to the 50s, however, asymptomatic. The patient was then cleared for discharge and wa s sent home in a stable condition. Activity: As tolerated. Medications: As per medication reconciliation list. Followup: Follow up with primary care physician in 2-3 days. The patient has not established care a s yet. He was given a list of providers in the area. Follow up with [employer], Dr. Mejia, in 2 weeks and follow up radiation oncologist, Dr. Jose. The patient has appointment today in the afternoon. Return to ER for worsening condition. Diet: Heart healthy. Physical Examination: General: Awake, alert, oriented, in no acute distress. CV: S1, S2. No murmurs. Respiratory: Clear to auscultation bilaterally. No wheezing. Gastrointestinal: Abdomen is soft, nontender, and nondistended. Positive bowel sounds. Extremities: No clubbing, cyanosis, or edema. Neck: Trach collar in place. /LILLIAN Voice ID: [id number] Report ID: [id number]
== END 2017-10-07 11:49 | disposition home or self-care (01) ==
LOC: ER 17:51 → ERHOLD 19:53 → 2ND 21:17
PROVIDERS: ADMIT Hospitalist; ATTEND Hospitalist
DX: H70.002 Acute mastoiditis without complications, left ear (principal); J44.1 Chronic obstructive pulmonary disease with (acute) exacerbation; C32.9 Malignant neoplasm of larynx, unspecified; Z93.0 Tracheostomy status; F17.210 Nicotine dependence, cigarettes, uncomplicated
CPT/HCPCS: 36415; 70490; 71045; 74176; 80048; 80061; 80076; 82550; 82553; 83735; 83880; 84100; 84484; 85025; 85610; 85730; 87040; 87070; 87205; 87804; 93005; 94640; 94760; 96361; 96365; 96367; 96375; 99285; G0378; J0456; J0696; J1650; J2543; J2930; J3370; J7030; J7512; J7605

== ENCOUNTER 2017-10-12 11:54 | Inpatient (IN) | payer MEDICAID, OTHER ==
--- OUTSIDE RECORDS SUMMARY | 2017-10-12 11:57 | XMS REPORT ---
:1970 Author Organization [employer] Care Team Providers Name Role Phone Chandrakant Thompson Provider Role Unavailable Allergies, Adverse Reactions, Alerts Substance Reaction Event Type Iodine vomiting Drug Allergy Problems Problem Type Condition Code Onset Dates Condition Status Assessment Pre-syncope R55 Active Assessment Laryngeal cancer C32.9 Active Assessment Bradycardia R00.1 Active Assessment Tracheostomy care Z43.0 Active Assessment Chronic obstructive pulmonary J44.9 Active disease, unspecified COPD type Problem Seasonal allergies J30.2 Active Problem GERD without esophagitis K21.9 Active Problem Essential (primary) hypertension I10 Active Problem Tracheostomy care Z43.0 Active Problem Chronic obstructive pulmonary J44.9 Active disease, unspecified COPD type Problem Laryngeal cancer C32.9 Active Medications Medication Code Code Instructions Start End Status Dosage System Date Date Hydrocodone-Acet [facility] [id number] 10-325 MG Active 1 tablet aminophen Orally every 6 as needed hrs Citalopram [facility] 05883131658 20 MG Orally Active 1 tablet Hydrobromide Once a day Xanax [facility] [address]-06 1 MG Orally Active 1 tablet Once a day Zofran [facility] [address]-82 8 MG Orally Active 1 tablet Twice a day PRN Results No Known Results Summary Purpose [employer] Submission
[2017-10-12 13:12] LABS: Absolute Lymphocytes (CBC) 0.3 K/uL (0.7-4.9); Absolute Monocytes 0.7 K/uL (0.1-1.3); Absolute Neutrophil 6.2 K/uL (1.8-8.0); Basophils % 0.9 % (0-1.3); Eosinophils % 1.2 % (0-4.4); Hematocrit 29.1 % (39.6-49.0); Lymphocytes % 4.1 % (15.3-44.8); MCH 32.6 pg (27.0-35.0); MCV 93.4 fL (80-100); MPV 8.6 fL (7.6-11.3); Monocytes % 9.5 % (3.3-12.3); RBC Red Blood Cell Count 3.12 M/uL (4.33-5.43)
[2017-10-12] MEDS ORDERED: NA CHLORIDE 0.9% 1,000 ML ONE (13:14)
[2017-10-12] MEDS ORDERED: ALBUTEROL 2.5 MG/3 ML NEB SOL ONE (13:14)
[2017-10-12] MEDS ORDERED: METHYLPREDNISOLONE 125 MG INJ ONE (13:14)
[2017-10-12] MEDS ORDERED: IPRATROPIUM BROM 0.5MG/2.5ML ONE (13:14)
[2017-10-12 13:15] LABS: Protime INR 1.08
[2017-10-12] MEDS ORDERED: CEFEPIME 1 GM/100 ML BAG IV ONE (13:29)
[2017-10-12 13:32] LABS: ALT/SGPT 18 U/L (12-78); AST/SGOT 16 U/L (15-37); Albumin 3.3 g/dL (3.4-5.0); Alkaline Phosphatase 97 U/L (45-117); BUN Blood Urea Nitrogen 9 mg/dL (7-18); Bicarbonate 30 mmol/L (21-32); Bilirubin Direct < 0.1 mg/dL (0-0.2); Bilirubin Total 0.6 mg/dL (0.2-1.0); CKMB Creatine Kinase MB < 1.0 ng/mL (0.3-3.6); Creatine Phosphokinase 44 U/L (39-308); Glucose Level 86 mg/dL (74-106); Lipase 84 U/L (73-393); Magnesium 2.3 mg/dL (1.8-2.4); NT PRO-BNP 84 pg/mL (<125); Potassium 4.4 mmol/L (3.5-5.1); Protein, Total 7.5 g/dL (6.4-8.2); Sodium Level 139 mmol/L (136-145)
--- NOTE | 2017-10-12 13:36 | RAD REPORT ---
EXAM DESCRIPTION: RAD - Chest Single View - 10/12/2017 1:00 pm CLINICAL HISTORY: Shortness of breath, trach tube COMPARISON: October 05 TECHNIQUE: AP portable chest image was obtained 1248 hours . FINDINGS: No focal mass or consolidation. No failure findings. Lung markings are similar to comparis on. Trach tube remains in place. Heart and vasculature are normal. No measurable pleural effusion and no pneumothorax. No gross bony abnormality seen. No acute aortic findings suspected. IMPRESSION: No acute cardiopulmonary process. No significant change from comparison.
--- NOTE | 2017-10-12 13:38 | EDPHYS ---
Physician Documentation [facility] Name: Akin Pugh Age: 47 yrs Sex: Male : 1970 Arrival Date: 10/12/2017 Time: 11:56 Bed 8 Private MD: None, None; Gato Echevarria ED Physician Ren Bruner HPI: 10/12 13:12 This 47 yrs old Male presents to ER via Ambulatory with complaints of kishan Breathing Difficulty. 13:12 The patient has shortness of breath at rest, with light activity. Onset: The kishan symptoms/episode began/occurred 2 day(s) ago. Duration: The symptoms are continuous, and are steadily getting worse. The patient's shortness of breath is aggravated by coughing, is alleviated by rest, sitting up, application of supplemental oxygen. Associated signs and symptoms: The patient has no apparent associated signs or symptoms. Severity of symptoms: At their worst the symptoms were mild in the emergency department the symptoms are unchanged. The patient has experienced similar episodes in the past, several times. Historical: - Allergies: 12:00 Iodine; sv - PMHx: 12:00 Asthma; COPD; THROAT CA; sv - PSHx: 12:00 trach; Appendectomy; sv - Immunization history:: Flu vaccine is up to date. - Family history:: not pertinent. - Ebola Screening: : Patient denies travel to an Ebola-affected area in the 21 days before illness onset. ROS: 13:12 Constitutional: Negative for fever, chills, and weight loss, Eyes: Negative for injury, kishan pain, redness, and discharge, ENT: Negative for injury, pain, and discharge, Neck: Negative for injury, pain, and swelling, Cardiovascular: Negative for chest pain, palpitations, and edema, Abdomen/GI: Negative for abdominal pain, nausea, vomiting, diarrhea, and constipation, Back: Negative for injury and pain, : Negative for injury, bleeding, discharge, and swelling, MS/Extremity: Negative for injury and deformity, Skin: Negative for injury, rash, and discoloration, Neuro: Negative for headache, weakness, numbness, tingling, and seizure, Psych: Negative for depression, anxiety, suicide ideation, homicidal ideation, and hallucinations, Allergy/Immunology: Negative for hives, rash, and allergies, Endocrine: Negative for neck swelling, polydipsia, polyuria, polyphagia, and marked weight changes, Hematologic/Lymphatic: Negative for swollen nodes, abnormal bleeding, and unusual bruising. 13:12 Respiratory: Positive for cough, shortness of breath, wheezing, inspiratory, expiratory. Exam: 13:12 Constitutional: This is a well developed, well nourished patient who is awake, alert, kishan and in no acute distress. Head/Face: Normocephalic, atraumatic. Eyes: Pupils equal round and reactive to light, extra-ocular motions intact. Lids and lashes normal. Conjunctiva and sclera are non-icteric and not injected. Cornea within normal limits. Periorbital areas with no swelling, redness, or edema. ENT: Nares patent. No nasal discharge, no septal abnormalities noted. Tympanic membranes are normal and external auditory canals are clear. Oropharynx with no redness, swelling, or masses, exudates, or evidence of obstruction, uvula midline. Mucous membranes moist. Neck: Trachea midline, no thyromegaly or masses palpated, and no cervical lymphadenopathy. Supple, full range of motion without nuchal rigidity, or vertebral point tenderness. No Meningismus. Chest/axilla: Normal chest wall appearance and motion. Nontender with no deformity. No lesions are appreciated. Cardiovascular: Regular rate and rhythm with a normal S1 and S2. No gallops, murmurs, or rubs. Normal PMI, no JVD. No pulse deficits. Abdomen/GI: Soft, non-tender, with normal bowel sounds. No distension or tympany. No guarding or rebound. No evidence of tenderness throughout. Back: No spinal tenderness. No costovertebral tenderness. Full range of motion. Male : Normal genitalia with no discharge or lesions. Skin: Warm, dry with normal turgor. Normal color with no rashes, no lesions, and no evidence of cellulitis. MS/ Extremity: Pulses equal, no cyanosis. Neurovascular intact. Full, normal range of motion. Neuro: Awake and alert, GCS 15, oriented to person, place, time, and situation. Cranial nerves II-XII grossly intact. Motor strength 5/5 in all extremities. Sensory grossly intact. Cerebellar exam normal. Normal gait. Psych: Awake, alert, with orientation to person, place and time. Behavior, mood, and affect are within normal limits. 13:12 Respiratory: the patient does not display signs of respiratory distress, Respirations: normal, Breath sounds: decreased breath sounds, rhonchi, wheezing: expiratory that is mild. Vital Signs: 11:59 BP 165 / 133; Pulse 82; Resp 24; Temp 97.7; Pulse Ox 96% on R/A; sv 13:29 BP 105 / 84; Pulse 78; Resp 18; Pulse Ox 98% on R/A; aj1 13:50 Weight 91.63 kg; aj1 15:54 BP 116 / 75; Pulse 96; Resp 18; Pulse Ox 97% on R/A; aj1 MDM: 12:03 Patient medically screened. [facility] 13:19 Data reviewed: vital signs, nurses notes, lab test result(s), EKG, radiologic studies, kishan plain films. 10/12 12:06 Order name: Basic Metabolic Panel [facility] 10/12 12:06 Order name: CBC with Diff [facility] 10/12 12:06 Order name: Ckmb [facility] 10/12 12:06 Order name: CPK; Complete Time: 13:35 [facility] 10/12 12:06 Order name: LFT's; Complete Time: 13:35 [facility] 10/12 12:06 Order name: Magnesium; Complete Time: 13:35 [facility] 10/12 12:06 Order name: NT PRO-BNP; Complete Time: 13:35 [facility] 10/12 12:06 Order name: PT-INR; Complete Time: 13:35 [facility] 10/12 12:06 Order name: Ptt, Activated; Complete Time: 13:35 [facility] 10/12 12:06 Order name: Troponin (emerg Dept Use Only); Complete Time: 13:35 [facility] 10/12 12:06 Order name: Lipase; Complete Time: 13:35 [facility] 10/12 12:06 Order name: Blood Culture Adult (2) kishan 10/12 12:06 Order name: Urine Culture [facility] 10/12 12:06 Order name: Procalcitonin; Complete Time: 15:21 [facility] 10/12 12:06 Order name: XRAY Chest (1 view); Complete Time: 15:21 [facility] 10/12 12:06 Order name: EKG; Complete Time: 12:07 [facility] 10/12 12:06 Order name: Cardiac monitoring; Complete Time: 13:26 [facility] 10/12 12:07 Order name: Basic Metabolic Panel; Complete Time: 13:35 [facility] 10/12 12:07 Order name: CBC with Automated Diff; Complete Time: 13:35 [facility] 10/12 12:07 Order name: CKMB Creatine Kinase MB; Complete Time: 13:35 [facility] 10/12 13:45 Order name: CONS Physician Consult [facility] 10/12 13:45 Order name: VQ scan (Nuclear Medicine) [facility] 10/12 14:00 Order name: Urine Dipstick--Ancillary (enter results) 10/12 14:22 Order name: Urine Dipstick-Ancillary; Complete Time: 15:21 [facility] 10/12 12:06 Order name: EKG - Nurse/Tech; Complete Time: 13:26 [facility] 10/12 12:06 Order name: IV Saline Lock; Complete Time: 12:59 [facility] 10/12 12:06 Order name: Labs collected and sent; Complete Time: 13:00 [facility] 10/12 12:06 Order name: O2 Per Protocol; Complete Time: 13:26 [facility] 10/12 12:06 Order name: O2 Sat Monitoring; Complete Time: 13:26 [facility] Administered Medications: 13:06 CANCELLED (Duplicate Order): levofloxacin 500 mg 100 ml IVPB once over 60 mins [facility] 13:25 Drug: SOLU-Medrol 125 mg Route: IVP; Site: right hand; aj1 13:26 Drug: Albuterol - atroVENT (3:1) (2.5 mg - 0.5 mg) 3 ml Route: Nebulizer; aj1 13:26 Drug: NS 0.9% 1000 ml Route: IV; Rate: 125 ml/hr; Site: right hand; aj1 15:57 Follow up: IV Status: Completed infusion; IV Intake: 500ml [facility] 13:33 Drug: Cefepime 1 grams Route: IVPB; Rate: 200 ml/hr; Infused Over: 30 mins; Site: right sg wrist; 15:57 Follow up: IV Status: Completed infusion aj 15:00 Drug: Lovenox 1 mg/kg Route: Sub-Q; Site: right lower abdomen; aj1 15:57 Follow up: Response: No adverse reaction aj1 Disposition: 10/12/17 13:37 Hospitalization ordered by Aby Rouse for Observation. Preliminary diagnosis are Chronic obstructive pulmonary disease with (acute) exacerbation, Tracheostomy complications, Dyspnea. - Bed requested for Telemetry/MedSurg (observation). - Status is Observation. ss - Condition is Stable. - Problem is new. - Symptoms have improved. UTI on Admission? No Signatures: Dispatcher [employer] EDTayler Cobb, RN RN aj1 Keya Hardin RN Quentin Raman, RN Ren Dior MD MD cha Smirch, Shelby, RN RN ss Tran Buchanan Corrections: (The following items were deleted from the chart) 13:06 12:06 levofloxacin 500 mg 100 ml IVPB once over 60 mins ordered. [facility] 15:23 13:37 Hospitalization Ordered by Aby Rouse MD for Observation. Preliminary eb diagnosis is Chronic obstructive pulmonary disease with (acute) exacerbation; Tracheostomy complications; Dyspnea. Bed requested for Telemetry/MedSurg (observation). Status is Observation. Condition is Stable. Problem is new. Symptoms have improved. UTI on Admission? No. [facility] 16:37 15:23 10/12/2017 13:37 Hospitalization Ordered by Aby Rouse MD for Observation. ss Preliminary diagnosis is Chronic obstructive pulmonary disease with (acute) exacerbation; Tracheostomy complications; Dyspnea. Bed requested for Telemetry/MedSurg (observation). Status is Observation. Condition is Stable. Problem is new. Symptoms have improved. UTI on Admission? No. eb
--- NOTE | 2017-10-12 13:38 | ER ---
Nurse's Notes [facility] Name: Akin Pugh Age: 47 yrs Sex: Male : 1970 Arrival Date: 10/12/2017 Time: 11:56 Bed 8 Private MD: None, None; Gato Echevarria Diagnosis: Chronic obstructive pulmonary disease with (acute) exacerbation;Tracheostomy complications;Dyspnea Presentation: 10/12 11:58 Presenting complaint: Patient states: SOB started last night. Pt recently discharged sv from here. Pt has a trach. Pt feels like he's got fluid on his lungs. Pt has tried to use his inhalers but is unable to get enough lung capacity to get a full intake. Transition of care: patient was not received from another setting of care. Onset of symptoms was October 11, 2017. Care prior to arrival: None. 11:58 Method Of Arrival: Ambulatory sv 11:58 Acuity: PAO 3 sv 15:55 Risk Assessment: Do you want to hurt yourself or someone else? Patient reports no aj1 desire to harm self or others. Initial Sepsis Screen: Does the patient meet any 2 criteria? No. Patient's initial sepsis screen is negative. Does the patient have a suspected source of infection? No. Patient's initial sepsis screen is negative. Triage Assessment: 15:55 General: Appears in no apparent distress. Respiratory: Onset: The symptoms/episode aj1 began/occurred 2 days ago, the patient has mild shortness of breath. Respiratory: Airway is patent Respiratory effort is even, unlabored, Respiratory pattern is regular, symmetrical. Historical: - Allergies: 12:00 Iodine; sv - PMHx: 12:00 Asthma; COPD; THROAT CA; sv - PSHx: 12:00 trach; Appendectomy; sv - Immunization history:: Flu vaccine is up to date. - Family history:: not pertinent. - Ebola Screening: : Patient denies travel to an Ebola-affected area in the 21 days before illness onset. Screenin:30 Abuse screen: Denies threats or abuse. Denies injuries from another. Nutritional aj1 screening: No deficits noted. Tuberculosis screening: No symptoms or risk factors identified. 15:55 Fall Risk No fall in past 12 months (0 pts). No secondary diagnosis (0 pts). IV access aj1 (20 points). Ambulatory Aid- None/Bed Rest/Nurse Assist (0 pts). Gait- Normal/Bed Rest/Wheelchair (0 pts) Mental Status- Overestimates/Forgets Limitations (15 pts.). Total Rivera Fall Scale indicates Low Risk Score (25-44 pts). Family Present and informed to notify staff if they need to leave bedside As available Patient and Family Educated on Fall Prevention Program and strategies. Assessment: 12:30 General: Appears in no apparent distress. comfortable, Behavior is calm, cooperative, aj1 appropriate for age. Pain: Denies pain. Neuro: Level of Consciousness is awake, alert, obeys commands. Cardiovascular: Patient's skin is warm and dry. Rhythm is regular. Respiratory: Reports shortness of breath cough that is persistent Airway is patent Respiratory effort is even, unlabored, Respiratory pattern is regular, symmetrical, Breath sounds with wheezes bilaterally. GI: No signs and/or symptoms were reported involving the gastrointestinal system. : No signs and/or symptoms were reported regarding the genitourinary system. EENT: No signs and/or symptoms were reported regarding the EENT system. Derm: No signs and/or symptoms reported regarding the dermatologic system. Skin is pink, warm \T\ dry. normal. Musculoskeletal: No signs and/or symptoms reported regarding the musculoskeletal system. Circulation, motion, and sensation intact. 13:30 Reassessment: Patient appears in no apparent distress at this time. No changes from aj1 previously documented assessment. Patient and/or family updated on plan of care and expected duration. Pain level reassessed. Patient is alert, oriented x 3, equal unlabored respirations, skin warm/dry/pink. 15:00 Reassessment: Patient requests something to drink. No diet ordered at this time. aj1 Notified Dr. Bruner, patient may have something to drink. Patient provided a glass of ice water. 15:54 Reassessment: Patient appears in no apparent distress at this time. No changes from aj1 previously documented assessment. Patient and/or family updated on plan of care and expected duration. Pain level reassessed. Patient is alert, oriented x 3, equal unlabored respirations, skin warm/dry/pink. Vital Signs: 11:59 BP 165 / 133; Pulse 82; Resp 24; Temp 97.7; Pulse Ox 96% on R/A; sv 13:29 BP 105 / 84; Pulse 78; Resp 18; Pulse Ox 98% on R/A; aj1 13:50 Weight 91.63 kg; aj1 15:54 BP 116 / 75; Pulse 96; Resp 18; Pulse Ox 97% on R/A; aj1 ED Course: 11:56 Patient arrived in ED. sb2 11:57 None, None is Private Physician. sb2 11:59 Triage completed. sv 12:00 Arm band placed on left wrist. Patient placed in an exam room, on a stretcher. sv 12:02 Gato Echevarria MD is Private Physician. sb2 12:03 Ren Bruner MD is Attending Physician. kishan 12:30 Patient has correct armband on for positive identification. Bed in low position. Call aj1 light in reach. Side rails up X 1. cardiac monitor on. Pulse ox on. NIBP on. 12:30 No provider procedures requiring assistance completed. aj1 12:41 First set of blood cultures drawn by me. 3 12:41 Inserted saline lock: 20 gauge in right hand, using aseptic technique. Blood collected. [facility] 12:56 Initial lab(s) drawn, by tx, sent to lab. Second set of blood cultures drawn by tx, by [facility] venipuncture 23G to left ac. 13:00 XRAY Chest (1 view) In Process Unspecified. EDMS 13:28 Tayler Carlin, JEAN is Primary Nurse. aj1 13:36 Aby Rouse MD is Hospitalizing Provider. [facility] 15:56 Patient admitted, IV remains in place. aj1 Administered Medications: 13:06 CANCELLED (Duplicate Order): levofloxacin 500 mg 100 ml IVPB once over 60 mins [facility] 13:25 Drug: SOLU-Medrol 125 mg Route: IVP; Site: right hand; aj1 13:26 Drug: Albuterol - atroVENT (3:1) (2.5 mg - 0.5 mg) 3 ml Route: Nebulizer; aj1 13:26 Drug: NS 0.9% 1000 ml Route: IV; Rate: 125 ml/hr; Site: right hand; aj1 15:57 Follow up: IV Status: Completed infusion; IV Intake: 500ml aj1 13:33 Drug: Cefepime 1 grams Route: IVPB; Rate: 200 ml/hr; Infused Over: 30 mins; Site: right sg wrist; 15:57 Follow up: IV Status: Completed infusion aj1 15:00 Drug: Lovenox 1 mg/kg Route: Sub-Q; Site: right lower abdomen; aj1 15:57 Follow up: Response: No adverse reaction aj Intake: 15:57 IV: 500ml; Total: 500ml. aj Outcome: 13:37 Decision to Hospitalize by Provider. kishan 15:55 Admitted to Tele aj1 15:55 Condition: stable 15:55 Discharge instructions given to patient, Instructed on the need for admit. 16:37 Patient left the ED. ss Signatures: Dispatcher [employer] EDTayler Cobb RN RN ajKeya Herrera RN RN Quentin Valle RN Ren Dior MD MD cha Smirch, Shelby RN RN Marce Goldstein3 Evelyn Huggins sb2 Corrections: (The following items were deleted from the chart) 11:59 11:58 Presenting complaint: Patient states: SOB started last night. Pt recently sv discharged from here. Pt has a trach. Pt feels like he's got fluid on his lungs. sv 12:11 11:59 BP 165 / 133; Pulse 82bpm; Resp 24bpm; Pulse Ox 96% RA; sv sv 12:58 12:58 Inserted saline lock: 20 gauge in right hand, using aseptic technique. Blood dh3 collected. dh3
[2017-10-12 14:22] LABS: Urine Blood 1+ (NEG); Urine Glucose NEGATIVE (NEG); Urine Protein TRACE (NEG); Urine Specific Gravity 1.025 (1.005-1.030)
[2017-10-12] MEDS ORDERED: ENOXAPARIN 100 MG/ML SYR SQ ONE (14:32)
[2017-10-12] MEDS ORDERED: ONDANSETRON 4 MG/2 ML VIAL IV PRN (16:54)
[2017-10-12] MEDS ORDERED: ACETAMINOPHEN 500 MG TAB PO PRN (16:54)
[2017-10-12] MEDS ORDERED: predniSONE 20 MG TAB PO SCH (18:00)
[2017-10-12] MEDS ORDERED: Levofloxacin 750mg IV 750 MG/150 ML BAG IV SCH (18:00)
[2017-10-12 18:05] VITALS: BMI 27.3
[2017-10-12] MEDS: METHYLPREDNISOLONE 125 MG INJ IV SCH ×2 (18:23→23:43)
[2017-10-12] MEDS: HYDROCODONE/APAP 5/325 MG TAB PO PRN ×2 (19:22→22:48)
[2017-10-12] MEDS: ALBUTEROL 2.5 MG/3 ML NEB SOL NEB SCH (19:30)
[2017-10-12] MEDS: IPRATROPIUM BROM 0.5MG/2.5ML NEB SCH ×2 (19:30→23:46)
[2017-10-12] MEDS ORDERED: HOME MED 1 EA UNK (Fluticasone/Salmeterol [Advair 250-50 Diskus] 1 EACH) IH SCH (21:00)
[2017-10-12] MEDS: AZITHROMYCIN IV 500 MG in NA CHLORIDE 0.9% 250 ML IVPB SCH (21:10)
--- NOTE | 2017-10-12 21:36 | HP ---
Date of Admission: 10/12/2017 Reason For Admission: Shortness of breath. History Of Present Illness: This is a 47-year-old gentleman with history of multiple medical problems, including stage III throat cancer on concurrent chemoradiation with cisplatin, set up for 2 fusions, last 1 will be due next Saturday, who required tracheostomy, presented to the hospital a few days after discharge on October 07 with progressive shortness of breath. Shortness of breath was subjective and O2 saturation was normal. The patient on last admission was evaluated for pain in his left ear and his calf, and he was suspected to have Pseudomonas, but the workup was inconclusive, so he was discharged home with inhalers after seeing by Dr. Mejia. Apparently, patient was not able to use his Advair given the fact he had tracheostomy, and he continued to have progressive shortness of breath, and he presented back today to the hospital for that. In the ER, he was evaluated. Chest x-ray was unremarkable. A V/Q scan was ordered to rule out PE, but that is still pending. The patient's CBC and CMP all within normal. He was admitted for presumed COPD exacerbation if the V/Q scan was negative for PE. Currently, he is sitting in the chair. He felt a little better after breathing treatment done, but he is very agitated and irritated. His also at the bedside. She is very irritated about the multiple admissions, the fact that she feels nobody is able to help her . Review of systems otherwise limited as the patient was not willing to cooperate answering question. Past Medical History: Significant for: 1. Asthma, tobacco abuse. ?COPD. 2. Throat cancer, stage III, on concurrent chemoradiation. Past Surgical History: Significant for appendectomy, tracheostomy. Allergy: To iodine. Social History: He is , has 3 kids. He used to smoke, but he quit on July 12. Does not drink or use any drugs. He used to smoke 1 pack and half a day for 30 years at least. Family History: Significant for father had COPD and mother of breast cancer. Father is still alive. Home Medication: Significant for: 1. Albuterol inhaler. 2. Keflex 500 mg every 6 hours. 3. Fluconazole 200 mg daily. 4. Atrovent inhale nebulizer. 5. Celexa 10 mg once a day. 6. Advair 1 inhaler twice a day. 7. Vicodin 1 tablet every 6 hours. 8. Prednisone 20 mg only once a day apparently. Review of Systems: Denies any fever, chills, night sweats, dizziness, lightheadedness, blurred vision. He has cough. He has shortness of breath. No hemoptysis. No chest pain or abdominal pain. No nausea, vomiting. No change in bowel movement. No history of seizure or stroke, but he has history of depression and anxiety according to the . Physical Examination: Vital Signs: Currently, blood pressure is at 119/72, respiratory rate 18, pulse 87, temperature 98.2. General: He is alert, oriented, very agitated. Does not look in any distress. HEENT: Atraumatic, normocephalic. PERRLA. Oral mucosa is dry. Neck: Supple. No JVD. No bruits. There is a midline tracheostomy noted. Heart: Regular rate and rhythm. No gallops or murmur. Abdomen: Soft, nontender. No masses. Obese. Positive bowel sounds. Extremities: No clubbing or cyanosis. No edema. No calf tenderness. Neurologic: Grossly intact. Cranial exam 2 through 12 intact. Normal sensation. Normal reflexes. Normal muscle strength. Laboratory Data: CBC showed white blood cells of 7.4, hemoglobin 10.2, platelets 259. PT/INR within normal. Chemistry within normal. Albumin 3.3, globulin 4.2, lipase 84. V/Q scan is pending. Assessment And Plan: This is a 47-year-old gentleman with history of ?COPD, tobacco abuse, throat cancer on concurrent chemoradiation, presented with progressive shortness of breath. 1. Progressive dyspnea. We will proceed with V/Q scan to rule out pulmonary embolism. If that is negative, then probably most likely patient has chronic obstructive pulmonary disease exacerbation. I will place the patient on high dose of Solu-Medrol, IV antibiotic with Levaquin, and inhalers and nebulizer. Dr. Mejia is not available to see the patient in the meantime. 2. Tracheostomy, secondary to history of throat cancer. On concurrent chemoradiation. We will proceed with suction and supportive toilet. 3. History of depression. Continue Celexa. 4. Deep vein thrombosis prophylaxis with Lovenox. 5. Symptomatic treatment for insomnia with Ambien. I provided emotional support to the patient and his as they were apparently going through emotional crisis secondary to the new diagnosis of cancer. SALTY Voice ID: [id number] [id number]
[2017-10-13] MEDS: KETOROLAC 30 MG/ML INJ IV PRN ×3 (00:25→12:36)
[2017-10-13] MEDS: HYDROCODONE/APAP 5/325 MG TAB PO PRN ×2 (02:52→07:44)
[2017-10-13] MEDS: ZOLPIDEM TARTRATE 5 MG TABLET PO PRN ×2 (02:53→21:28)
[2017-10-13] MEDS: ALBUTEROL 2.5 MG/3 ML NEB SOL NEB SCH ×4 (03:14→20:17)
[2017-10-13] MEDS: IPRATROPIUM BROM 0.5MG/2.5ML NEB SCH ×6 (03:14→23:53)
[2017-10-13] MEDS: METHYLPREDNISOLONE 125 MG INJ IV SCH ×3 (06:07→17:36)
[2017-10-13 06:21] LABS: Absolute Lymphocytes (CBC) 0.1 K/uL (0.7-4.9); Absolute Monocytes 0.2 K/uL (0.1-1.3); Absolute Neutrophil 5.8 K/uL (1.8-8.0); Basophils % 0.2 % (0-1.3); Hematocrit 32.4 % (39.6-49.0); Lymphocytes % 1.8 % (15.3-44.8); MCH 32.4 pg (27.0-35.0); MPV 7.9 fL (7.6-11.3); Monocytes % 2.6 % (3.3-12.3); RBC Red Blood Cell Count 3.52 M/uL (4.33-5.43)
[2017-10-13 06:38] LABS: ALT/SGPT 17 U/L (12-78); AST/SGOT 4 U/L (15-37); Albumin 2.9 g/dL (3.4-5.0); Alkaline Phosphatase 90 U/L (45-117); BUN Blood Urea Nitrogen 13 mg/dL (7-18); Bicarbonate 27 mmol/L (21-32); Bilirubin Total 0.2 mg/dL (0.2-1.0); Glucose Level 163 mg/dL (74-106); Magnesium 2.5 mg/dL (1.8-2.4); Potassium 4.2 mmol/L (3.5-5.1); Protein, Total 6.9 g/dL (6.4-8.2); Sodium Level 140 mmol/L (136-145)
[2017-10-13 08:05] LABS: Blood Morphology Comment NOT SEEN (NOT SEEN); Platelet Estimate ADEQ; Urine White Blood Cell Casts OK
[2017-10-13] MEDS: CITALOPRAM 10 MG TABLET PO SCH (08:33)
[2017-10-13] MEDS: ENOXAPARIN 40 MG/0.4 ML SQ SCH (08:33)
[2017-10-13] MEDS: CEFTRIAXONE/SWI 2gm 2 GM/20 ML SYR IV SCH (08:34)
[2017-10-13] MEDS ORDERED: CEFTRIAXONE 2,000 MG in NA CHLORIDE 0.9% 100 ML IV SCH (09:00)
--- NOTE | 2017-10-13 09:31 | EKG ---
Test Date: 2017-10-12 Test Time: 13:10:03 Human Services Supervisor: ROHIT MEASUREMENT RESULTS: Intervals: Rate: 85 CO: 150 QRSD: 74 QT: 356 QTc: 423 [place]: P: 48 CO: 150 QRS: 29 T: 37 INTERPRETIVE STATEMENTS: Normal sinus rhythm with sinus arrhythmia Normal ECG Compared to ECG 10/05/2017 19:01:19 No significant changes Electronically Signed On 10-13-17 09:28:10 CDT by Mayito Cota
--- NOTE | 2017-10-13 10:06 | RAD REPORT ---
EXAM DESCRIPTION: NM - Pulmonary Perf Quant Diff - 10/13/2017 8:05 am CLINICAL HISTORY: Shortness of breath COMPARISON: October 12, 2017 chest x-ray TECHNIQUE: Ventilation images could not be obtained as the patient has a tracheostomy tube in place 7.3 millicuries Technetium-99 MAA was administered intravenously. Anterior, posterior, lateral and o blique views of the lungs were taken. FINDINGS: The lungs demonstrate homogeneous radiotracer activity. No segmental or lobar perfusion de fects are seen IMPRESSION: No evidence of a pulmonary embolus
[2017-10-13] MEDS ORDERED: HYDROCODONE/APAP 5/325 MG TAB PO PRN (11:16)
[2017-10-13] MEDS: MORPHINE 2 MG/ML SYR IV PRN ×3 (13:59→21:27)
--- NOTE | 2017-10-13 17:13 | PN ---
Subjective: Currently the patient is sitting in bed. He looks comfortable. He had no chest pain. No abdominal pain. His shortness of breath is better but he still feeling short of breath and does n ot feel he is back to his baseline. There is still cough, lot of sputum coming from the trach. His not at the bedside. Objective: Vital Signs: Currently vital signs, blood pressure is 136/65, respiratory rate 18, pulse 67, temperature 97.8, saturating 95% on room air. The patient is alert, oriented x3. Does not look in any distress. HEENT: Atraumatic, normocephalic. PERRLA. Oral mucosa is moist. Neck: Supple. No JVD. No carotid bruits. Chest: Clear to auscultation. No expiratory wheezing. Neck: Supple. No JVD. Midline tracheostomy noted. Heart: Regular rate and rhythm. S1, S2 normal. No gallop or murmur. Abdomen: Soft. No masses. No hepatosplenomegaly. Positive bowel sounds. Extremities: No clubbing, cyanosis, or edema. No calf tenderness. Neurologic: Grossly intact. Laboratory Studies: Today labs showed white blood cells within normal. Hemoglobin 11.4, platelet wi thin normal. Chemistry within normal. Glucose 163, magnesium 2.5. LFTs within normal. CT scan was negative with low probability. Assessment/plan: 1.Chronic obstructive pulmonary disease exacerbation. Pulmonary embolism was ruled out with negativ e V/Q scan. We will continue patient on Solu-Medrol, Levaquin and inhaler for now. He is subjective ly feeling better but is still short of breath. We will give him 1 additional day on IV steroid and then discharge home tomorrow on oral steroids. 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 He is currently on concurrent chemoradiation. He will f ollow up with Dr. Hull as outpatient. Continue pulmonary toilet and suction. 3.History of mastoiditis. The patient continues to feel some fullness in his ears. We will obtain consult from ENT in a.m. and see if anything else to be done or further imaging needed. 4.History of depression, continue Celexa. 5.History of anxiety, on p.r.n. Xanax as outpatient. 6.Deep venous thrombosis prophylaxis, on Lovenox. RAYMOND/LILLIAN Voice ID: [id number] Report ID: [id number]
[2017-10-13] MEDS: AZITHROMYCIN IV 500 MG in NA CHLORIDE 0.9% 250 ML IVPB SCH (21:28)
[2017-10-14] MEDS: METHYLPREDNISOLONE 125 MG INJ IV SCH ×4 (00:33→18:39)
[2017-10-14] MEDS: MORPHINE 2 MG/ML SYR IV PRN ×4 (01:25→15:34)
[2017-10-14] MEDS: ALBUTEROL 2.5 MG/3 ML NEB SOL NEB SCH ×4 (03:12→20:19)
[2017-10-14] MEDS: IPRATROPIUM BROM 0.5MG/2.5ML NEB SCH ×6 (03:12→23:22)
[2017-10-14] MEDS: CITALOPRAM 10 MG TABLET PO SCH (10:03)
[2017-10-14] MEDS: FLUCONAZOLE 100 MG TAB PO SCH (10:04)
[2017-10-14] MEDS: ENOXAPARIN 40 MG/0.4 ML SQ SCH (10:04)
[2017-10-14] MEDS: CEFTRIAXONE/SWI 2gm 2 GM/20 ML SYR IV SCH (10:04)
[2017-10-14] MEDS: ALPRAZOLAM 1 MG TABLET PO SCH (12:59)
--- NOTE | 2017-10-14 13:26 | P.PN ---
Subjective Date of Service: 10/14/17 Primary Care Provider: Jay Chief Complaint: sob Subjective: No new changes Review of Systems 10-point ROS is otherwise unremarkable Respiratory: Shortness of Breath Physical Examination - Vital Signs Temperature: 97.9 F Blood Pressure: 107/55 Pulse: 81 Respirations: 18 Pulse Ox (%): 95 - Physical Exam General: Alert, In no apparent distress HEENT: Atraumatic, PERRLA, EOMI Neck: Supple, JVD not distended Respiratory: Clear to auscultation bilaterally, Normal air movement Cardiovascular: Regular rate/rhythm, Normal S1 S2 Gastrointestinal: Normal bowel sounds, No tenderness Musculoskeletal: No tenderness Integumentary: No rashes Neurological: Normal speech, Normal tone, Normal affect Lymphatics: No axilla or inguinal lymphadenopathy - Studies Microbiology Data (last 24 hrs): 10/12/17 13:52 Clean Catch Urine [place] Count - Final <10,000 CFU/ML. 10/12/17 13:52 Clean Catch Urine - Final 10/12/17 12:41 Blood - Blood Anaerobic Blood Culture - Final Assessment & Plan - Problems (Diagnosis) (1) COPD (chronic obstructive pulmonary disease) Onset Date: 10/14/17 Current Visit: Yes Status: Acute Plan: Will start stiloto. 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 Jose Discharge Plan: Home Plan to discharge in: 24 Hours - Code Status/Comfort Care Code Status Assessed: No Code Status: Full Code Physician Review: Patient Assessed, Agree with Above Assessment and Plan Critical Care: No Time Spent Managing Pts Care (In Minutes): 30
[2017-10-14] MEDS: AZITHROMYCIN IV 500 MG in NA CHLORIDE 0.9% 250 ML IVPB SCH (20:10)
[2017-10-15] MEDS: METHYLPREDNISOLONE 125 MG INJ IV SCH ×3 (00:20→12:42)
[2017-10-15] MEDS: MORPHINE 2 MG/ML SYR IV PRN ×3 (00:28→12:37)
[2017-10-15] MEDS: IPRATROPIUM BROM 0.5MG/2.5ML NEB SCH ×3 (04:34→12:40)
[2017-10-15] MEDS: ALBUTEROL 2.5 MG/3 ML NEB SOL NEB SCH ×3 (04:34→12:40)
[2017-10-15 06:06] VITALS: O2SAT 95
[2017-10-15] MEDS: CITALOPRAM 10 MG TABLET PO SCH ×2 (07:10→09:00)
[2017-10-15] MEDS: ENOXAPARIN 40 MG/0.4 ML SQ SCH ×2 (07:10→09:00)
[2017-10-15] MEDS: ALPRAZOLAM 1 MG TABLET PO SCH (07:10)
[2017-10-15] MEDS: FLUCONAZOLE 100 MG TAB PO SCH ×2 (07:10→09:00)
[2017-10-15 08:25] VITALS: BP 130/61; TEMP 98
[2017-10-15] MEDS: CEFTRIAXONE/SWI 2gm 2 GM/20 ML SYR IV SCH (09:00)
--- NOTE | 2017-10-15 13:32 | P.DS ---
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 The patient was admitted for shortness of breath. He was not able to draw on his advair, with the tracheostomy collar. Hospital Course: Patient was admitted. Radiation continued in our cancer center. Was given a sample of stiloto from the office. will be discharged home on a tapering dosage of prednisone. Instructed on the use of the stiloto. Follow up with me in a week Vital Signs/Physical Exam: Temp Pulse Resp BP Pulse Ox 98 F 72 18 130/61 97 10/15/17 08:00 10/15/17 08:00 10/15/17 08:00 10/15/17 08:00 10/15/17 08:00 General: Alert, In no apparent distress HEENT: Atraumatic, PERRLA, Other (tracheostomy), EOMI Neck: Supple, JVD not distended Respiratory: Clear to auscultation bilaterally, Normal air movement Cardiovascular: Regular rate/rhythm, Normal S1 S2 Gastrointestinal: Normal bowel sounds, No tenderness Musculoskeletal: No tenderness Integumentary: No rashes Neurological: Normal speech, Normal tone, Normal affect Lymphatics: No axilla or inguinal lymphadenopathy Laboratory Data at Discharge: WBC 6.1 K/uL (4.3-10.9) D 10/13/17 05:37 Hgb 11.4 g/dL (13.6-17.9) L 10/13/17 05:37 Hct 32.4 % (39.6-49.0) L 10/13/17 05:37 Plt Count 236 K/uL (152-406) 10/13/17 05:37 PT 12.7 SECONDS (9.5-12.5) H 10/12/17 12:56 INR 1.08 10/12/17 12:56 APTT 29.5 SECONDS (24.3-36.9) 10/12/17 12:56 Sodium 140 mmol/L (136-145) 10/13/17 05:37 Potassium 4.2 mmol/L (3.5-5.1) 10/13/17 05:37 BUN 13 mg/dL (7-18) 10/13/17 05:37 Creatinine 0.80 mg/dL (0.55-1.3) 10/13/17 05:37 Glucose 163 mg/dL (74-106) H 10/13/17 05:37 Magnesium 2.5 mg/dL (1.8-2.4) H 10/13/17 05:37 Total Bilirubin 0.2 mg/dL (0.2-1.0) 10/13/17 05:37 AST 4 U/L (15-37) L 10/13/17 05:37 ALT 17 U/L (12-78) 10/13/17 05:37 Alkaline Phosphatase 90 U/L (45-117) 10/13/17 05:37 Lipase 84 U/L (73-393) 10/12/17 12:56 Home Medications: Citalopram [Celexa*] 20 mg PO DAILY 10/06/17 Hydrocodone Bit/Acetaminophen [Hydrocodon-Acetaminophen 5-325] 1 each PO Q4HP PRN 10/06/17 Albuterol Neb [Proventil 0.083% Neb Soln] 2.5 mg NEB Q6HP PRN #60 amp 10/07/17 Ipratropium Neb [Atrovent*] 0.5 mg NEB [id number] #60 amp 10/07/17 ALPRAZolam [Xanax] 1 mg PO SEECOM 10/12/17 Cephalexin [Keflex] 500 mg PO Q6HR 10/12/17 Fluconazole [Diflucan] 200 mg PO DAILY 10/12/17 Prednisone [Sterapred Ds] 10 mg PO BID 9 Days #21 tab.ds.pk 10/15/17 Tiotropium Br/Olodaterol HCl [Stiolto Respimat Inhal [place]] 4 gm IH DAILY #1 mist.inhal 10/15/17 New Medications: Prednisone [Sterapred Ds] 10 mg PO BID 9 Days #21 tab.ds.pk Tiotropium Br/Olodaterol HCl [Stiolto Respimat Inhal [place]] 4 gm IH DAILY #1 mist.inhal Diet: Regular Activity: Ad get Physician Review: Patient Assessed, Agree with Above Assessment and Plan Time spent managing pt's care (in minutes): 35
== END 2017-10-15 13:58 | disposition home or self-care (01) | DRG 192 ==
LOC: ER 11:54 → ERHOLD 13:40 → 4TH 15:50 → OBSVTOIN 16:55
PROVIDERS: ADMIT Internal Medicine; ATTEND Internal Medicine
DX: J44.1 Chronic obstructive pulmonary disease with (acute) exacerbation (principal); C32.9 Malignant neoplasm of larynx, unspecified; Z87.891 Personal history of nicotine dependence; Z93.0 Tracheostomy status; H70.93 Unspecified mastoiditis, bilateral; F41.9 Anxiety disorder, unspecified; F32.9 Major depressive disorder, single episode, unspecified; G47.00 Insomnia, unspecified; Z91.041 Radiographic dye allergy status
CPT/HCPCS: 36415; 71045; 77336; 77386; 78597; 80048; 80053; 80076; 81003; 82550; 82553; 83605; 83690; 83735; 83880; 84145; 84484; 85025; 85610; 85730; 87040; 87070; 87086; 87088; 87205; 93005; 94640; 94760; 96365; 96366; 96372; 96375; 99285; A9540; G0378; J0456; J0692; J0696; J1650; J2270; J2930; J7030

== ENCOUNTER 2018-02-17 10:52 | Day surgery (SDC) | payer MEDICAID ==
--- OUTSIDE RECORDS SUMMARY | 2018-02-17 10:55 | XMS REPORT ---
:1970 Author Organization [employer] Care Team Providers Name Role Phone Chandrakant Thompson Provider Role Unavailable Allergies No Known Allergies Problems Problem Type Condition Code Onset Dates Condition Status Problem Seasonal allergies J30.2 Active Problem GERD without esophagitis K21.9 Active Problem Essential (primary) hypertension I10 Active Problem Tracheostomy care Z43.0 Active Problem Chronic obstructive pulmonary J44.9 Active disease, unspecified COPD type Problem Laryngeal cancer C32.9 Active Medications No Known Medications Results No Known Results Summary Purpose [employer]Works Submission
--- OUTSIDE RECORDS SUMMARY | 2018-02-17 10:55 | XMS REPORT ---
:1970 Author Organization [employer] Care Team Providers Name Role Phone Chandrakant Thompson Provider Role Unavailable Allergies, Adverse Reactions, Alerts Substance Reaction Event Type Iodine vomiting Drug Allergy Problems Problem Type Condition Code Onset Dates Condition Status Problem GERD without esophagitis K21.9 Active Problem Chronic obstructive pulmonary J44.9 Active disease, unspecified COPD type Problem Polyneuropathy in diseases classified G63 Active elsewhere Problem Postablative hypothyroidism E89.0 Active Problem Malignant (primary) neoplasm, C80.1 Active unspecified Problem Essential (primary) hypertension I10 Active Problem Seasonal allergies J30.2 Active Problem Laryngeal cancer C32.9 Active Problem Tracheostomy care Z43.0 Active Assessment Polyneuropathy in diseases classified G63 Active elsewhere Assessment Postablative hypothyroidism E89.0 Active Assessment Tracheostomy care Z43.0 Active Assessment Malignant (primary) neoplasm, C80.1 Active unspecified Assessment Laryngeal cancer C32.9 Active Medications Medication Code Code Instructions Start End Status Dosage System Date Date BuPROPion HCl [facility] 51374873982 150 MG Orally Dec 16, Active 1 tablet ER (Smoking Once a day 2018 in the Det) morning Xanax [facility] 15993541337 1 MG Orally Once Active 1 tablet a day Zofran ND 96914541746 8 MG Orally Active 1 tablet Twice a day PRN Hydrocodone-Ac ND 48268371410 10-325 MG Orally Active 1 tablet etaminophen every 6 hrs as needed Results No Known Results Summary Purpose eClinicalWorks Submission
--- OUTSIDE RECORDS SUMMARY | 2018-02-17 10:55 | XMS REPORT ---
[...] End Status Dosage System Date Date Hydrocodone-Acet [facility] 34234153087 10-325 MG Active 1 tablet aminophen Orally every 6 as needed hrs Citalopram [facility] 83779806015 20 MG Orally Active 1 tablet Hydrobromide Once a day Xanax [facility] [address]-82 1 MG Orally Active 1 tablet Once a day Zofran [facility] [address]-92 8 MG Orally Active 1 tablet Twice a day PRN Results No Known Results Summary Purpose [employer]ClinicalWorks Submission
--- OUTSIDE RECORDS SUMMARY | 2018-02-17 10:55 | XMS REPORT ---
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 Active Problem Seasonal allergies J30.2 Active Problem GERD without esophagitis K21.9 Active Problem Essential (primary) hypertension I10 Active Problem Tracheostomy care Z43.0 Active Problem Chronic obstructive pulmonary J44.9 Active disease, unspecified COPD type Problem Laryngeal cancer C32.9 Active Medications Medication Code Code Instructions Start End Status Dosage System Date Date BuPROPion HCl [facility] 23015516290 150 MG Orally Dec 16, Active 1 tablet ER (Smoking Once a day 2018 in the Det) morning Xanax [facility] 78918844340 1 MG Orally Active 1 tablet Once a day Zofran ND 56211763499 8 MG Orally Active 1 tablet Twice a day PRN Hydrocodone-[place] ND 28031974395 10-325 MG Active 1 tablet taminophen Orally every 6 as needed hrs Citalopram ND 48699814798 20 MG Orally Inactive 1 tablet Hydrobromide Once a day Results No Known Results Summary Purpose [employer]ClinicalWorks Submission
--- OUTSIDE RECORDS SUMMARY | 2018-02-17 10:55 | XMS REPORT ---
:1970 Author Organization [employer] Care Team Providers Name Role Phone Chandrakant Thompsno Provider Role Unavailable Allergies No Known Allergies [...]
[2018-02-17] MEDS ORDERED: Ringers Lactate 1,000 ML IV ONE (11:13)
[2018-02-17] MEDS ORDERED: LIDOCAINE 2% W/EPI 1:200,000 MPF 20 ML VIAL IM ONE (12:02)
[2018-02-17] MEDS ORDERED: EPINEPHRINE/PF 1 MG/ML AMP ONE (12:02)
[2018-02-17] MEDS ORDERED: ROCURONIUM 50 MG/5 ML VIAL IV ONE (12:03)
[2018-02-17] MEDS ORDERED: MIDAZOLAM HCL 2 MG/2 ML INJ ONE (12:03)
[2018-02-17] MEDS ORDERED: PROPOFOL 200 MG/20 ML VIAL IV ONE (12:03)
[2018-02-17] MEDS ORDERED: LIDOCAINE 2% MPF 5 ML VIAL ONE (12:03)
[2018-02-17] MEDS ORDERED: FENTANYL CITR 250 MCG/5 ML ONE (12:03)
[2018-02-17] MEDS ORDERED: LIDOCAINE 1% W/EPI 1:100,000 MDV 50 ML VIAL ONE (12:09)
[2018-02-17] MEDS ORDERED: DEXAMETHASONE 10 MG/ML VIAL ONE (12:59)
--- NOTE | 2018-02-17 13:03 | P.BOP ---
Preoperative diagnosis: Persistant sore throat, history laryngeal cancer, tobacco use Postoperative diagnosis: same Primary procedure: DL with biopsy [employer] Winder: NONE,NONE Estimated blood loss: <5ml Specimen: L supraglottis Findings: eschar/abnormal appearance L FVF/epiglottis Anesthesia: General Complications: None Implants: none Fluids & blood products: crystalloid 700ml Transferred to: Recovery Room Condition: Good
[2018-02-17] MEDS ORDERED: NEOSTIGMINE 1 MG/ML -5 ML SYRINGE ONE (13:10)
[2018-02-17] MEDS ORDERED: GLYCOPYRROLATE 0.2 MG/ML SYR ONE (13:10)
[2018-02-17] MEDS ORDERED: NALOXONE 0.4 MG/ML VIAL ONE (13:17)
[2018-02-17] MEDS: MEPERIDINE HCL 50 MG/ML AMP ONE ×2 (13:32→13:47)
[2018-02-17 14:55] VITALS: BP 167/92; TEMP 97.6; O2SAT 94
--- NOTE | 2018-02-18 00:26 | OP ---
Date of Procedure: 02/17/2018 Surgeon: Keya Pardo MD Preoperative Diagnoses: Persistent sore throat, history of laryngeal cancer, and tobacco use. Postoperative Diagnoses: Persistent sore throat, history of laryngeal cancer, and tobacco use. Procedure: Direct laryngoscopy with biopsies. Specimen: Left supraglottis; for clarification, the specimen was taken from the location where the false vocal fold meets the base of the epiglottis on the endolaryngeal surface. Indication For Procedure: Mr. Pugh is a 47-year-old, who was diagnosed with a T3 laryngeal cancer and initially presented with airway obstruction. He underwent previous direct laryngoscopy, biopsy, and tracheotomy placement in June 2017. He was treated with chemoradiation and completed therapy. He was later decannulated in November following accidental tracheostomy dislodgement. At that time, the flexible laryngoscopy showed a smooth and well-healed mucosal surface of the in the larynx. He presented approximately 2 months later , soon following his initial post-treatment PET scan with nonspecific enhancement of the tongue and complained of persistent sore throat on the left larynx. His endoscopic exam in the office at that time showed an area of eschar , thin crusted secretions, and mucosal irregularity. The risks, benefits, and alternatives were discussed with the patient, although he initially elected for observation, he later decided to proceed with surgery. Description Of Procedure In Detail: The patient was brought to the operating room. He was placed under general anesthesia via oral endotracheal tube with the assist of the GlideScope. A Ramesh laryngoscope was used to perform a direct laryngoscopy. The epiglottis was moderately edematous and erythematous, consistent with general post-radiation changes. The endolaryngeal surface of the larynx was difficult to visualize. The Aurea-Ber laryngoscope with telescope was then used and from our direct laryngoscopy, the soft palate, uvula , posterior pharyngeal wall, and base of tongue were all unremarkable. The vallecula appeared clear. The tip of the scope was then placed within the endolarynx and used to elevate the epiglottis. The vocal cords were difficult to visualize directly. The false vocal cords were noted to be mildly edematous as were the arytenoids. On the right side, the mucosa was pink and smooth without any significant concerning findings. On the left in the crevice between the false vocal cord and the epiglottis, there were some mild irregular tissue and some eschar. After suctioning, several biopsies were taken from this area. Bleeding was minimal and controlled with direct pressure from a cotton pledget. After several minutes, this pledget was removed. The area appeared to be hemostatic. The laryngeal scope was carefully removed and the patient was returned to care of Anesthesia for awakening, extubation in the operating room. Disposition: The patient will be discharged home later today. The patient will be contacted regarding pathology reports as soon as they become available. MICHELLE Voice ID: [id number] Report ID: [id number] JODEE
== END 2018-02-17 14:46 | disposition home or self-care (01) ==
LOC: OR 10:52
PROVIDERS: ATTEND Otolaryngology
PROC: 0CBR8ZX Excision of Epiglottis, Via Natural or Artificial Opening Endoscopic, Diagnostic (ICD-10-PCS; principal; 2018-02-17 12:00)
DX: J38.7 Other diseases of larynx (principal); J31.2 Chronic pharyngitis; G47.33 Obstructive sleep apnea (adult) (pediatric); E07.9 Disorder of thyroid, unspecified; Z85.21 Personal history of malignant neoplasm of larynx; F17.210 Nicotine dependence, cigarettes, uncomplicated; Z88.3 Allergy status to other anti-infective agents; Z91.041 Radiographic dye allergy status; Z80.9 Family history of malignant neoplasm, unspecified; Z83.3 Family history of diabetes mellitus
CPT/HCPCS: 88305; J0171; J1100; J2175; J2250; J2310; J2704; J2710; J3010

== ENCOUNTER 2018-05-26 19:17 | Observation (INO) | payer MEDICAID ==
--- OUTSIDE RECORDS SUMMARY | 2018-05-26 19:19 | XMS REPORT ---
:1970 Author [facility] Address [address] [place] [address] Dr. Topete [address] [place] [id number] Care Team Providers Name Role Phone Unavailable Unavailable Unavailable Problems This patient has no known problems. Allergies, Adverse Reactions, Alerts This patient has no known allergies or adverse reactions. Medications This patient has no known medications.
--- OUTSIDE RECORDS SUMMARY | 2018-05-26 19:19 | XMS REPORT ---
[...] End Status Dosage System Date Date Hydrocodone-Acet [facility] 01256562973 10-325 MG Active 1 tablet aminophen Orally every 6 as needed hrs Citalopram [facility] 85421821839 20 MG Orally Active 1 tablet Hydrobromide Once a day Xanax [facility] [address]-19 1 MG Orally Active 1 tablet Once a day Zofran [facility] [address]-65 8 MG Orally Active 1 tablet Twice a day PRN Results No Known Results Summary Purpose eClinicalWorks Submission
--- OUTSIDE RECORDS SUMMARY | 2018-05-26 19:19 | XMS REPORT ---
[...] Status Dosage System Date Date BuPROPion HCl [facility] 32028642672 150 MG Orally Dec 16, Active 1 tablet ER (Smoking Once a day 2018 in the Det) morning Xanax [facility] 73131416750 1 MG Orally Active 1 tablet Once a day Zofran ND 80907990351 8 MG Orally Active 1 tablet Twice a day PRN Hydrocodone-[place] ND 04380725635 10-325 MG Active 1 tablet taminophen Orally every 6 as needed hrs Citalopram ND 65442165521 20 MG Orally Inactive 1 tablet Hydrobromide Once a day Results No Known Results Summary Purpose eClinicalWorks Submission
--- OUTSIDE RECORDS SUMMARY | 2018-05-26 19:20 | XMS REPORT ---
[...] HCl [facility] 17793111821 150 MG Orally Dec 16, Active 1 tablet ER (Smoking Once a day 2018 in the Det) morning Xanax [facility] 68627177310 1 MG Orally Once Active 1 tablet a day Zofran ND 76109164237 8 MG Orally Active 1 tablet Twice a day PRN Hydrocodone-Ac ND 66614831945 10-325 MG Orally Active 1 tablet etaminophen every 6 hrs as needed Results No Known Results Summary Purpose [employer]ClinicalWorks Submission
--- OUTSIDE RECORDS SUMMARY | 2018-05-26 19:20 | XMS REPORT ---
:1970 Author Organization [employer] Care Team Providers Name Role Phone Chandrakant Thompson Provider Role Unavailable Allergies No Known Allergies Problems Problem Type Condition Code Onset Dates Condition Status Problem Seasonal allergies J30.2 Active Problem Tracheostomy care Z43.0 Active Problem Essential (primary) hypertension I10 Active Problem Postablative hypothyroidism E89.0 Active Problem Malignant (primary) neoplasm, C80.1 Active unspecified Problem Reactive depression F32.9 Active Problem Chronic obstructive pulmonary J44.9 Active disease, unspecified COPD type Problem Laryngeal cancer C32.9 Active Problem Polyneuropathy in diseases classified G63 Active elsewhere Problem GERD without esophagitis K21.9 Active Medications No Known Medications Results No Known Results Summary Purpose [employer]ClinicalWorks Submission
--- OUTSIDE RECORDS SUMMARY | 2018-05-26 19:20 | XMS REPORT ---
:1970 Author Organization [employer] Care Team Providers Name Role Phone Bernadine Sanchez Provider Role Unavailable Allergies No Known Allergies [...]
[2018-05-26 20:26] LABS: Absolute Neutrophil 9.4 K/uL (1.8-8.0); Basophils % 0.5 % (0-1.3); Eosinophils % 1.7 % (0-4.4); Hematocrit 47.1 % (39.6-49.0); Lymphocytes % 8.3 % (15.3-44.8); MPV 8.8 fL (7.6-11.3); Monocytes % 8.3 % (3.3-12.3); RBC Red Blood Cell Count 4.88 M/uL (4.33-5.43)
[2018-05-26] MEDS ORDERED: LIDOCAINE 2% MPF 5 ML VIAL ONE (20:30)
[2018-05-26] MEDS ORDERED: NA CHLORIDE 0.9% 1,000 ML ONE (20:32)
[2018-05-26] MEDS ORDERED: FENTANYL CITR 100 MCG/2 ML ONE (20:32)
[2018-05-26] MEDS ORDERED: DEXAMETHASONE 4 MG/ML VIAL ONE (20:32)
[2018-05-26 20:37] LABS: BUN Blood Urea Nitrogen 15 mg/dL (7-18); Bicarbonate 27 mmol/L (21-32); Glucose Level 102 mg/dL (74-106); Potassium 3.9 mmol/L (3.5-5.1); Sodium Level 140 mmol/L (136-145)
--- NOTE | 2018-05-26 21:19 | RAD REPORT ---
EXAM DESCRIPTION: CT - Soft Tissue Neck Wo Contr - 05/26/2018 8:40 pm CLINICAL HISTORY: Throat swelling, cough, bloody mucus, fever COMPARISON: CT study September 2017 TECHNIQUE: Axial 3 millimeter thick images of the lower face and neck were obtained without IV contr ast. All CT scans are performed using dose optimization technique as appropriate and may include automated exposure control or mA/KV adjustment according to patient size. FINDINGS: Mastoid air cells and visualized paranasal sinuses are clear. No nasopharyngeal mucosal ma ss or asymmetry. Soft palate, tonsils and tongue base show no suspicious findings. Epiglottis is norm al. Thickened, lobulated soft tissues are present along the bilateral and posterior supraglottic soft tis sues. No defined abscess identifiable. Posterior left vocal cord is thickened and edematous as well. No abnormal air collection. No abnormal cervical lymphadenopathy. A few small sub centimeter lymph nodes are present. No esophage al abnormality. There is no thickening of the prevertebral soft tissues. Parotid and submandibular tissues are normal. No thyroid mass seen. IMPRESSION: Posterior and bilateral supraglottic mucosal thickening. No gross evidence for abscess. Assessment is limited in the absence of IV contrast. No abnormal lymphadenopathy. Infectious/inflammatory process would be favored. Squamous cell or other malignant mass cannot be exc luded. Direct visualization may be needed after medical management to exclude malignant process.
--- NOTE | 2018-05-26 22:31 | EDPHYS ---
Physician Documentation [facility] Name: Akin Pugh Age: 47 yrs Sex: Male : 1970 Arrival Date: 05/26/2018 Time: 19:23 Bed 28 Private MD: ED Physician Sara Jeronimo HPI: 05/26 22:32 This 47 yrs old Male presents to ER via Ambulatory with complaints of snw Breathing Difficulty. 22:32 The patient has shortness of breath at rest. Onset: The symptoms/episode began/occurred snw gradually, 6 month(s) ago, and became worse today, and became persistent. Duration: The symptoms are continuous. Associated signs and symptoms: Pertinent positives: pain in posterior pharynx, cough, swelling of vocal cords. Severity of symptoms: At their worst the symptoms were moderate. The patient has experienced similar episodes in the past, chronically. Dr. Pardo, Dr. Jimenez. Historical: - Allergies: 19:47 Iodine; ea - Home Meds: 19:47 escitalopram oxalate oral oral [Active]; Levoxyl Oral [Active]; ea - PMHx: 19:47 Asthma; COPD; THROAT CA; ea - PSHx: 19:47 trach; Appendectomy; ea - Immunization history:: Adult Immunizations up to date. - Social history:: Smoking status: Patient/guardian denies using tobacco. - Ebola Screening: : No symptoms or risks identified at this time. ROS: 21:31 Constitutional: Negative for fever, chills, and weight loss, Eyes: Negative for injury, snw pain, redness, and discharge, Neck: Negative for injury, pain, and swelling, Cardiovascular: Negative for chest pain, palpitations, and edema, Respiratory: Negative for shortness of breath, cough, wheezing, and pleuritic chest pain, Abdomen/GI: Negative for abdominal pain, nausea, vomiting, diarrhea, and constipation, Back: Negative for injury and pain, : Negative for injury, bleeding, discharge, and swelling, MS/Extremity: Negative for injury and deformity, Skin: Negative for injury, rash, and discoloration, Neuro: Negative for headache, weakness, numbness, tingling, and seizure, Psych: Negative for depression, anxiety, suicide ideation, homicidal ideation, and hallucinations. 21:31 ENT: Positive for difficulty swallowing, sore throat, pt states he feels his airway is closing. Exam: 20:26 Head/Face: Normocephalic, atraumatic. Eyes: Pupils equal round and reactive to light, snw extra-ocular motions intact. Lids and lashes normal. Conjunctiva and sclera are non-icteric and not injected. Cornea within normal limits. Periorbital areas with no swelling, redness, or edema. 20:26 Chest/axilla: Normal chest wall appearance and motion. Nontender with no deformity. No lesions are appreciated. Cardiovascular: Regular rate and rhythm with a normal S1 and S2. No gallops, murmurs, or rubs. Normal PMI, no JVD. No pulse deficits. Respiratory: Lungs have equal breath sounds bilaterally, clear to auscultation and percussion. No rales, rhonchi or wheezes noted. No increased work of breathing, no retractions or nasal flaring. Abdomen/GI: Soft, non-tender, with normal bowel sounds. No distension or tympany. No guarding or rebound. No evidence of tenderness throughout. Back: No spinal tenderness. No costovertebral tenderness. Full range of motion. Skin: Warm, dry with normal turgor. Normal color with no rashes, no lesions, and no evidence of cellulitis. MS/ Extremity: Pulses equal, no cyanosis. Neurovascular intact. Full, normal range of motion. Neuro: Awake and alert, GCS 15, oriented to person, place, time, and situation. Cranial nerves II-XII grossly intact. Motor strength 5/5 in all extremities. Sensory grossly intact. Cerebellar exam normal. Normal gait. 20:26 Constitutional: The patient appears alert, awake, anxious. 20:26 ENT: Ear canal(s): are normal, TM's: are normal, Nose: is normal, Mouth: is normal, Posterior pharynx: raw, Voice: is hoarse. 20:26 Neck: External neck: is normal, Trachea: tender. Vital Signs: 19:47 BP 124 / 87; Pulse 93; Resp 19; Temp 98.8(O); Pulse Ox 95% on R/A; Weight 93.89 kg; ea Height 6 ft. (182.88 cm); Pain 10/10; 19:49 BP 128 / 90; Pulse 96; Resp 18; Pulse Ox 98% ; tl3 20:48 BP 117 / 95; Pulse 82; Resp 18; Pulse Ox 99% on R/A; tl3 22:31 BP 107 / 75; Pulse 83; Resp 18; Pulse Ox 99% on R/A; tl3 19:47 Body Mass Index 28.07 (93.89 kg, 182.88 cm) ea MDM: 20:06 Patient medically screened. snw 22:31 Data reviewed: vital signs, nurses notes. Data interpreted: Pulse oximetry: on room air snw is 99 %. Interpretation: normal. Counseling: I had a detailed discussion with the patient and/or guardian regarding: the historical points, exam findings, and any diagnostic results supporting the discharge/admit diagnosis, radiology results, the need for further work-up and treatment in the hospital. Medication response: minimal change. Physician consultation: Sara Vilchis MD was called at 22:32, was contacted at 22:32, regarding admission, to the telemetry unit. 05/26 20:06 Order name: CBC with Diff; Complete Time: 20:42 snw 05/26 20:06 Order name: Chem 7; Complete Time: 20:42 snw 05/26 20:09 Order name: Soft Tissue Neck Wo Contr; Complete Time: 21:29 EDMS 05/26 23:16 Order name: Echo with Doppler EDMS 05/26 23:17 Order name: Procalcitonin EDMS 05/26 20:06 Order name: Misc. Order: Lidocaine Neb at 7-8L/min flow; Complete Time: 20:47 snw 05/26 23:16 Order name: CONS Pharmacy Consult; Complete Time: 23:50 EDMS 05/26 23:16 Order name: Regular EDMS Administered Medications: 20:30 Drug: fentaNYL (PF) 50 mcg Route: IVP; Site: right hand; tl3 22:30 Follow up: Response: No adverse reaction tl3 20:47 Drug: NS 0.9% 1000 ml Route: IV; Rate: 75 ml/hr; Site: right hand; tl3 22:30 Follow up: IV Status: Infusion continued upon admission tl3 20:47 Drug: Decadron - Dexamethasone 10 mg Route: IVP; Site: right hand; tl3 22:31 Follow up: Response: No adverse reaction tl3 22:30 Drug: Albuterol 2.5 mg Route: Inhalation; tl3 23:07 Follow up: Response: No adverse reaction tl3 22:30 Drug: morphine 4 mg Route: IVP; Infused Over: 2 mins; Site: right wrist; tl3 23:49 Follow up: Response: Pain is decreased tl3 Disposition: 05/26/18 22:31 Hospitalization ordered by Sara Vilchis for Observation. Preliminary diagnosis are Laryngeal edema, Pain in throat - throat cancer, Cough. - Bed requested for Telemetry/MedSurg (observation). - Status is Observation. tl3 - Condition is Stable. - Problem is an ongoing problem. - Symptoms are unchanged. UTI on Admission? No Addendum: 05/31/2018 17:16 Co-signature as Attending Physician, Sara Jeronimo MD. m a2 Signatures: Dispatcher [employer] EDCT Deepika Russo, HYBRID TECHNOLOGIST-C HYBRID TECHNOLOGIST-Csnw Lima Dahl, RN RN Anjelica Silverman RN RN ea Alzahri, Mohammad, MD MD wi2 Sophia Gilman RN RN tl3 Corrections: (The following items were deleted from the chart) 05/26 20:09 20:06 Soft Tissue Neck W/Contr+CT.RAD.BRZ ordered. EDCT EDMS 23:20 22:31 Hospitalization Ordered by Sara Vilchis MD for Observation. Preliminary cg diagnosis is Laryngeal edema; Pain in throat - throat cancer; Cough. Bed requested for Telemetry/MedSurg (observation). Status is Observation. Condition is Stable. Problem is an ongoing problem. Symptoms are unchanged. UTI on Admission? No. snw 23:50 23:20 05/26/2018 22:31 Hospitalization Ordered by Sara Vilchis MD for Observation. tl3 Preliminary diagnosis is Laryngeal edema; Pain in throat - throat cancer; Cough. Bed requested for Telemetry/MedSurg (observation). Status is Observation. Condition is Stable. Problem is an ongoing problem. Symptoms are unchanged. UTI on Admission? No. cg
--- NOTE | 2018-05-26 22:31 | ER ---
Nurse's Notes [facility] Name: Akin Pugh Age: 47 yrs Sex: Male : 1970 Arrival Date: 05/26/2018 Time: 19:23 Bed 28 Private MD: Diagnosis: Laryngeal edema;Pain in throat-throat cancer;Cough Presentation: 05/26 19:44 Presenting complaint: states: reports he has a history of throat cancer and ea has been feeling his throat closing up. Saw Dr. Pardo on Saturday, reports symptoms have worsen, and now has symptoms of cough, bloody mucus, fever. Transition of care: patient was not received from another setting of care. Onset of symptoms was May 26, 2018. Risk Assessment: Do you want to hurt yourself or someone else? Patient reports no desire to harm self or others. Initial Sepsis Screen: Does the patient meet any 2 criteria? No. Patient's initial sepsis screen is negative. Does the patient have a suspected source of infection? No. Patient's initial sepsis screen is negative. Care prior to arrival: None. 19:44 Method Of Arrival: Ambulatory ea 19:44 Acuity: PAO 3 ea Triage Assessment: 19:48 General: Appears uncomfortable, Behavior is appropriate for age. Pain: Complains of ea pain in chest and neck. Respiratory: Reports labored breathing since Saturday Onset: The symptoms/episode began/occurred gradually, the patient has moderate shortness of breath. Historical: - Allergies: 19:47 Iodine; ea - Home Meds: 19:47 escitalopram oxalate oral oral [Active]; Levoxyl Oral [Active]; ea - PMHx: 19:47 Asthma; COPD; THROAT CA; ea - PSHx: 19:47 trach; Appendectomy; ea - Immunization history:: Adult Immunizations up to date. - Social history:: Smoking status: Patient/guardian denies using tobacco. - Ebola Screening: : No symptoms or risks identified at this time. Screenin:49 Abuse screen: Denies threats or abuse. Nutritional screening: No deficits noted. tl3 Tuberculosis screening: No symptoms or risk factors identified. Fall Risk None identified. Assessment: 19:49 General: Appears distressed, uncomfortable, well groomed, well developed, well tl3 nourished, Behavior is appropriate for age, anxious. Pain: Complains of pain in neck and chest. Neuro: Level of Consciousness is awake, alert, obeys commands. Cardiovascular: Patient's skin is warm and dry. Rhythm is regular. Respiratory: Airway is patent Respiratory effort is even, unlabored, Breath sounds are clear Breath sounds are coarse. Respiratory: Reports cough that is productive. GI: No signs and/or symptoms were reported involving the gastrointestinal system. : No signs and/or symptoms were reported regarding the genitourinary system. EENT: No signs and/or symptoms were reported regarding the EENT system. 20:48 Reassessment: No changes from previously documented assessment. Patient and/or family tl3 updated on plan of care and expected duration. Pain level reassessed. Patient is alert, oriented x 3, equal unlabored respirations, skin warm/dry/pink. at the bedside, no needs at this time. 22:31 Reassessment: No changes from previously documented assessment. Patient and/or family tl3 updated on plan of care and expected duration. Pain level reassessed. Patient is alert, oriented x 3, equal unlabored respirations, skin warm/dry/pink. Deepika in room discussing POC and admit. 23:42 Reassessment: Patient appears in no apparent distress at this time. No changes from tl3 previously documented assessment. Patient and/or family updated on plan of care and expected duration. Pain level reassessed. Patient is alert, oriented x 3, equal unlabored respirations, skin warm/dry/pink. report called to Nelson PENA. Vital Signs: 19:47 BP 124 / 87; Pulse 93; Resp 19; Temp 98.8(O); Pulse Ox 95% on R/A; Weight 93.89 kg; ea Height 6 ft. (182.88 cm); Pain 10/10; 19:49 BP 128 / 90; Pulse 96; Resp 18; Pulse Ox 98% ; tl3 20:48 BP 117 / 95; Pulse 82; Resp 18; Pulse Ox 99% on R/A; tl3 22:31 BP 107 / 75; Pulse 83; Resp 18; Pulse Ox 99% on R/A; tl3 19:47 Body Mass Index 28.07 (93.89 kg, 182.88 cm) ea ED Course: 19:23 Patient arrived in ED. am2 19:44 Sophia Gilman, JEAN is Primary Nurse. tl3 19:44 Deepika Russo FNP-C is [facility]. snw 19:45 Sara Jeronimo MD is Attending Physician. snw 19:46 Triage completed. ea 19:49 Nurse Practitioner and/or Physician Fur Polisher to see patient. Deepika at bedside. tl3 19:49 Arm band placed on right wrist. Patient placed in an exam room, on a stretcher. ea 19:49 Patient has correct armband on for positive identification. Placed in gown. Bed in low tl3 position. Call light in reach. Side rails up X 1. Adult w/ patient. senior unix administrator on. Pulse ox on. NIBP on. 19:49 No provider procedures requiring assistance completed. tl3 20:[address] vm2 20:41 Soft Tissue Neck Wo Contr In Process Unspecified. EDMS 22:29 Sara Vilchis MD is Hospitalizing Provider. snw 23:42 Patient admitted, IV remains in place. tl3 Administered Medications: 20:30 Drug: fentaNYL (PF) 50 mcg Route: IVP; Site: right hand; tl3 22:30 Follow up: Response: No adverse reaction tl3 20:47 Drug: NS 0.9% 1000 ml Route: IV; Rate: 75 ml/hr; Site: right hand; tl3 22:30 Follow up: IV Status: Infusion continued upon admission tl3 20:47 Drug: Decadron - Dexamethasone 10 mg Route: IVP; Site: right hand; tl3 22:31 Follow up: Response: No adverse reaction tl3 22:30 Drug: Albuterol 2.5 mg Route: Inhalation; tl3 23:07 Follow up: Response: No adverse reaction tl3 22:30 Drug: morphine 4 mg Route: IVP; Infused Over: 2 mins; Site: right wrist; tl3 23:49 Follow up: Response: Pain is decreased tl3 Outcome: 22:31 Decision to Hospitalize by Provider. snw 23:42 Admitted to Tele accompanied by tech, via wheelchair, with chart, Report called to tl3 JEAN Damon 23:42 Condition: stable 23:42 Instructed on the need for admit, Demonstrated understanding of instructions. 23:50 Patient left the ED. tl3 Signatures: Dispatcher [employer] EDMD Deepika Russo FNP-C DIVISION CHAIR-Csnw Rose Baker am2 Marlyn Delgado 2 Anjelica Rangel, RN RN ea Sophia Gilman RN RN tl3
[2018-05-26] MEDS ORDERED: ALBUTEROL 2.5 MG/3 ML NEB SOL ONE (22:38)
[2018-05-26] MEDS ORDERED: MORPHINE 4 MG/ML SYR ONE (22:38)
[2018-05-26] MEDS ORDERED: ACETAMINOPHEN 500 MG TAB PO PRN (23:10)
[2018-05-26] MEDS ORDERED: IPRATROPIUM BROM 0.5MG/2.5ML NEB PRN (23:10)
[2018-05-26] MEDS ORDERED: ONDANSETRON 4 MG/2 ML VIAL IV PRN (23:10)
[2018-05-26] MEDS ORDERED: ALBUTEROL 2.5 MG/3 ML NEB SOL NEB PRN (23:10)
[2018-05-26] MEDS ORDERED: NA CHLORIDE 0.9% 1,000 ML IV SCH (23:45)
[2018-05-27] MEDS ORDERED: AMPICILLIN/SULBACT 3 GM in NA CHLORIDE 0.9% 100 ML IVPB SCH ×2
[2018-05-27] MEDS: METHYLPREDNISOLONE 125 MG INJ IV SCH ×2 (01:18→06:29)
[2018-05-27] MEDS ORDERED: AMPICILLIN/SULBACTAM 3GM/VIAL ONE ×2 (01:19→01:54)
[2018-05-27] MEDS: HYDROCODONE/APAP 5/325 MG TAB PO PRN ×2 (01:37→10:57)
[2018-05-27] MEDS ORDERED: NA CHLORIDE 0.9% 100 ML ONE (01:56)
[2018-05-27] MEDS ORDERED: DIPHENHYDRAMINE 50 MG/ML VIAL ONE (02:18)
[2018-05-27] MEDS: MORPHINE 2 MG/ML SYR IV PRN ×2 (02:21→07:17)
[2018-05-27 02:42] VITALS: BMI 28.0
[2018-05-27 04:02] LABS: Absolute Lymphocytes (CBC) 0.4 K/uL (0.7-4.9); Absolute Monocytes 0.1 K/uL (0.1-1.3); Absolute Neutrophil 12.5 K/uL (1.8-8.0); Basophils % 0.2 % (0-1.3); Lymphocytes % 2.9 % (15.3-44.8); Monocytes % 0.9 % (3.3-12.3); RBC Red Blood Cell Count 5.06 M/uL (4.33-5.43)
[2018-05-27 04:13] LABS: Albumin 3.6 g/dL (3.4-5.0); Bilirubin Total 0.4 mg/dL (0.2-1.0); Potassium 4.1 mmol/L (3.5-5.1); Protein, Total 6.8 g/dL (6.4-8.2)
[2018-05-27 05:21] LABS: Blood Morphology Comment NOT SEEN (NOT SEEN); Platelet Estimate ADEQ
[2018-05-27] MEDS ORDERED: LEVOTHYROXINE SOD 0.05 MG TABLET PO SCH ×2 (06:00)
[2018-05-27] MEDS ORDERED: CLINDAMYCIN INJ 600 MG in NA CHLORIDE 0.9% 50 ML IV SCH (07:00)
[2018-05-27 07:20] LABS: Urine Appearance CLEAR; Urine Bilirubin NEGATIVE (NEG); Urine Blood TRACE (NEG); Urine Color YELLOW; Urine Glucose 2+ (NEG); Urine Protein NEGATIVE (NEG); Urine Specific Gravity 1.015 (1.005-1.030)
[2018-05-27 07:24] LABS: Urine Microscopic Reflex ORDER UMIC
[2018-05-27 07:39] LABS: Urine Bacteria NONE SEEN /HPF (NONE SEEN); Urine RBC <5 /HPF (NONE SEEN)
[2018-05-27 07:40] LABS: Urine Culture Reflex Order NOT NEEDED; Urine Mucus 1+ /HPF (NONE SEEN)
[2018-05-27] MEDS ORDERED: ESCITALOPRAM 20 MG TAB PO SCH (09:00)
[2018-05-27] MEDS ORDERED: TIOTROPIUM BR IH SCH (09:00)
[2018-05-27] MEDS ORDERED: OLODATEROL HCL IH SCH (09:00)
--- NOTE | 2018-05-27 09:56 | P.HP ---
Certification for Inpatient Patient admitted to: Observation With expected LOS: <2 Midnights Patient will require the following post-hospital care: None Practitioner: I am a practitioner with admitting privileges, knowledge of patient current condition, hospital course, and medical plan of care. Services: Services provided to patient in accordance with Admission requirements found in Title 42 Section 412.3 of the Code of Federal Regulations Patient History Date of Service: 05/27/18 Reason for admission: throat pain History of Present Illness: Patient is a 47-year-old gentleman who has history of throat cancer. He has had chemotherapy and radiation. He apparently was in remission. He has been having some pain and he also states he has become more hoarse. He came to the hospital for further evaluation. He sees his ear nose and throat physician Dr. Keya Pardo. CT of the neck revealed some swelling around the oral pharyngeal region. He states his breathing is the same as it has been for the last couple of months. There is no significant changes. His airway is not compromised. He does not want to be transferred. We will see if we can get ENT to see the patient in the morning and if not he will need to follow up as an outpatient. Patient will be admitted to the hospital for supportive care and ENT consult for later today. Allergies levofloxacin [From Levaquin] Allergy (Severe, Verified 02/14/18 10:49) Itching/Hives/Rash ampicillin Allergy (Verified 05/27/18 02:14) Itching/Hives/Rash iodine Allergy (Verified 02/14/18 10:49) Hives/Rash Home Medications: Escitalopram [Lexapro*] 10 mg PO DAILY 05/27/18 Levothyroxine [Synthroid*] 100 mcg PO DAILY 05/27/18 - Past Medical/Surgical History Has patient received pneumonia vaccine in the past: Yes Diabetic: No -: Asthma - CHILDHOOD -: DEPRESSION -: STAGE III LARYNYX CANCER -: STAGE III LARYNYX CANCER -: APPE -: Appendectomy -: Tracheostomy-removal Oct 2017 -: knee surgery Psychosocial/ Personal History: Patient smokes regularly but plans to quit. - Family History Father Medical History: Heart disease, Diabetes Mother Medical History: Cancer - Social History Smoking Status: Former smoker Alcohol use: Yes CD- Drugs: No Caffeine use: Yes Place of Residence: Home Review of Systems 10-point ROS is otherwise unremarkable Physical Examination - Vital Signs Temperature: 97.6 F Blood Pressure: 124/69 Pulse: 81 Respirations: 16 Pulse Ox (%): 95 - Physical Exam General: Alert, In no apparent distress, Oriented x3 HEENT: Atraumatic, Normocephalic Neck: Supple, 2+ carotid pulse no bruit, JVD not distended, No Thyromegaly, No LAD Respiratory: Clear to auscultation bilaterally, Normal air movement Cardiovascular: No edema, Normal pulses, Regular rate/rhythm, Normal S1 S2 Gastrointestinal: Normal bowel sounds, Hypoactive, Soft and benign, Non- distended, W/out succussion splash Musculoskeletal: No clubbing, No swelling, No contractures Integumentary: No rashes Neurological: Normal gait, Normal speech, Normal strength at 5/5 x4 extr, Normal tone, Sensation intact, Cranial nerves 3-12 intact Lymphatics: No axilla or inguinal lymphadenopathy - Studies Laboratory Data (last 24 hrs) 05/26/18 20:15: Sodium 140, Potassium 3.9, BUN 15, Creatinine 0.76, Glucose 102 05/26/18 20:15: WBC 11.6 H, Hgb 15.7, Hct 47.1, Plt Count 232 Assessment & Plan - Problems (Diagnosis) (1) Supraglottic edema Current Visit: Yes Status: Acute (2) COPD (chronic obstructive pulmonary disease) Onset Date: 10/14/17 Current Visit: No Status: Acute Qualifiers: COPD type: chronic bronchitis Chronic bronchitis type: simple Qualified Code(s): J41.0 - Simple chronic bronchitis (3) History of depression Onset Date: 10/14/17 Current Visit: No Status: Acute (4) SOB (shortness of breath) Onset Date: 10/14/17 Current Visit: No Status: Acute (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 IV antibiotics and IV steroids 2. ENT consult; have spoken to their office 3. monitor labs closely 4. Pain control 5. GI and DVT prophylaxis Discharge Plan: Home Plan to discharge in: 24 Hours - Advance Directives Does patient have a Living Will: Yes Does patient have a Durable POA for Healthcare: Yes - Code Status/Comfort Care Code Status Assessed: Yes Code Status: Full Code Critical Care: No Time Spent Managing PTS Care (In Minutes): 50
--- NOTE | 2018-05-27 11:19 | ECHO ---
HEIGHT: 6 ft 0 in WEIGHT: 207 lb 0 oz DATE OF STUDY: 05/27/[address]: Sara Vilchis MD 2-DIMENSIONAL: YES M.MODE: YES DOPPLER: YES COLOR FLOW: YES TDS: NO PORTABLE: NO DEFINITY: NO BUBBLE STUDY: NO DIAGNOSIS: ORTHOPENEA CARDIAC HISTORY: CATHERIZATION: NO SURGERY: NO PROSTHETIC VALVE: NO PACEMAKER: NO MEASUREMENTS (cm) DIASTOLIC (NORMALS) SYSTOLIC (NORMALS) IVSd 1.2 (0.6-1.2) LA Diam (1.9-4.0) LVEF 68% LVIDd 4.2 (3.5-5.7) LVIDs 2.7 (2.0-3.5) %FS 37% LVPWd 1.1 (0.6-1.2) Ao Diam 3.2 (2.0-3.7) 2 DIMENSIONAL ASSESSMENT: RIGHT ATRIUM: NORMAL LEFT ATRIUM: NORMAL RIGHT VENTRICLE: NORMAL LEFT VENTRICLE: NORMAL TRICUSPID VALVE: NORMAL MITRAL VALVE: NORMAL PULMONIC VALVE: NORMAL AORTIC VALVE: NORMAL PERICARDIAL EFFUSION: NONE AORTIC ROOT: NORMAL LEFT VENTRICULAR WALL MOTION: NORMAL. DOPPLER/COLOR FLOW: NORMAL. COMMENTS: NORMAL 2D ECHO WITH DOPPLER. NO WALL MOTION ABNORMALITY. NO EFFUSION. TECHNOLOGIST: LISA THOMAS
[2018-05-27 12:24] VITALS: O2SAT 90
[2018-05-27 13:43] VITALS: BP 127/74; TEMP 97.8
[2018-05-28] MEDS ORDERED: LEVOTHYROXINE SOD 0.1 MG TAB PO SCH (06:30)
[2018-05-28] MEDS ORDERED: LEVOTHYROXINE SOD 0.025 MG TAB PO SCH (17:00)
== END 2018-05-27 13:20 | disposition home or self-care (01) ==
LOC: ER 19:17 → ERHOLD 23:20 → 4TH 23:46
PROVIDERS: ADMIT Hospitalist; ATTEND Hospitalist
DX: J38.4 Edema of larynx (principal); J44.9 Chronic obstructive pulmonary disease, unspecified; R06.02 Shortness of breath; F32.9 Major depressive disorder, single episode, unspecified; Z88.0 Allergy status to penicillin; Z85.21 Personal history of malignant neoplasm of larynx; Z87.891 Personal history of nicotine dependence
CPT/HCPCS: 36415; 70490; 80048; 80053; 81003; 81015; 83880; 84145; 85025; 93306; 94640; 99285; G0378; J0295; J2270; J2930; J3010; J7030

== ENCOUNTER 2018-06-13 16:23 | Emergency (ER) | payer MEDICAID ==
[2018-06-13 16:52] LABS: Absolute Lymphocytes (CBC) 0.1 K/uL (0.7-4.9); Absolute Monocytes 0.6 K/uL (0.1-1.3); Absolute Neutrophil 8.7 K/uL (1.8-8.0); Basophils % 0.1 % (0-1.3); Eosinophils % 0.1 % (0-4.4); Hematocrit 44.6 % (39.6-49.0); Lymphocytes % 1.3 % (15.3-44.8); MPV 8.9 fL (7.6-11.3); Monocytes % 6.6 % (3.3-12.3); RBC Red Blood Cell Count 4.62 M/uL (4.33-5.43)
[2018-06-13] MEDS ORDERED: METHYLPREDNISOLONE 125 MG INJ ONE (16:52)
[2018-06-13] MEDS ORDERED: ACETAMINOPHEN 650MG/RECT SUPP PR ONE (16:53)
[2018-06-13] MEDS ORDERED: LEVALBUTEROL 1.25 MG/3 ML NEB ONE ×2 (16:53→17:37)
[2018-06-13] MEDS ORDERED: NA CHLORIDE 0.9% 1,000 ML ONE (16:53)
[2018-06-13] MEDS ORDERED: IPRATROPIUM BROM 0.5MG/2.5ML ONE (16:53)
[2018-06-13 16:56] LABS: Protime INR 1.17
[2018-06-13] MEDS ORDERED: ACETAMINOPHEN 325 MG TABLET ONE (17:10)
[2018-06-13] MEDS ORDERED: PIPER/TAZO/NS 3.375gm 3.375 GM/100 ML BAG ONE (17:10)
[2018-06-13 17:12] LABS: ALT/SGPT 40 U/L (12-78); AST/SGOT 19 U/L (15-37); Albumin 3.2 g/dL (3.4-5.0); Alkaline Phosphatase 82 U/L (45-117); BUN Blood Urea Nitrogen 11 mg/dL (7-18); Bicarbonate 34 mmol/L (21-32); Bilirubin Direct 0.2 mg/dL (0-0.2); Bilirubin Total 0.6 mg/dL (0.2-1.0); Glucose Level 84 mg/dL (74-106); Lipase 70 U/L (73-393); NT PRO-BNP 363 pg/mL (<125); Potassium 3.7 mmol/L (3.5-5.1); Protein, Total 6.5 g/dL (6.4-8.2); Sodium Level 135 mmol/L (136-145); Troponin (Emerg Dept Use Only) < 0.02 ng/mL (0.0-0.045)
--- NOTE | 2018-06-13 17:20 | RAD REPORT ---
EXAM DESCRIPTION: Edin Single View06/13/2018 4:58 pm CLINICAL HISTORY: cough COMPARISON: September 2017 FINDINGS: An area of subsegmental atelectasis is present within the mid to lower right lung. The remainder of the lungs appear clear. The heart is normal size. Tracheostomy tube remains in place
[2018-06-13] MEDS ORDERED: DEXAMETHASONE 4 MG/ML VIAL ONE (17:37)
[2018-06-13] MEDS ORDERED: IBUPROFEN 400 MG TAB ONE (17:37)
--- NOTE | 2018-06-13 17:43 | EDPHYS ---
Physician Documentation [facility] Name: Akin Pugh Age: 47 yrs Sex: Male : 1970 Arrival Date: 06/13/2018 Time: 16:28 Bed 4 Private MD: ED Physician Ren Bruner HPI: 06/13 16:36 This 47 yrs old Male presents to ER via Wheelchair with complaints of kishan Shortness Of Breath, Tracheostomy. 16:36 The patient has shortness of breath at rest, with light activity. Onset: The kishan symptoms/episode began/occurred 2 day(s) ago. Duration: The symptoms are continuous, and are steadily getting worse. The patient's shortness of breath has no apparent modifying factors. Associated signs and symptoms: Pertinent positives: non-productive cough, dizziness. Severity of symptoms: At their worst the symptoms were moderate in the emergency department the symptoms are unchanged. The patient has not experienced similar symptoms in the past. Historical: - Allergies: 16:33 Iodine; sv 16:33 2 unknown antibiotics; sv - Home Meds: 16:36 escitalopram oxalate Oral [Active]; Levoxyl Oral [Active]; hj - PMHx: 16:33 Asthma; COPD; THROAT CA; sv - PSHx: 16:33 Appendectomy; trach x2; sv - Immunization history:: Adult Immunizations up to date. - Social history:: Smoking status: Patient/guardian denies using tobacco, Patient/guardian denies using alcohol. - Family history:: not pertinent. - Ebola Screening: : Patient negative for fever greater than or equal to 101.5 degrees Fahrenheit, and additional compatible Ebola Virus Disease symptoms Patient denies exposure to infectious person Patient denies travel to an Ebola-affected area in the 21 days before illness onset. ROS: 16:36 Constitutional: Negative for fever, chills, and weight loss, Eyes: Negative for injury, kishan pain, redness, and discharge, ENT: Negative for injury, pain, and discharge, Neck: Negative for injury, pain, and swelling, Cardiovascular: Negative for chest pain, palpitations, and edema, Abdomen/GI: Negative for abdominal pain, nausea, vomiting, diarrhea, and constipation, Back: Negative for injury and pain, : Negative for injury, bleeding, discharge, and swelling, MS/Extremity: Negative for injury and deformity, Skin: Negative for injury, rash, and discoloration, Neuro: Negative for headache, weakness, numbness, tingling, and seizure, Psych: Negative for depression, anxiety, suicide ideation, homicidal ideation, and hallucinations, Allergy/Immunology: Negative for hives, rash, and allergies, Endocrine: Negative for neck swelling, polydipsia, polyuria, polyphagia, and marked weight changes, Hematologic/Lymphatic: Negative for swollen nodes, abnormal bleeding, and unusual bruising. 16:36 Respiratory: Positive for cough, shortness of breath, wheezing, inspiratory, expiratory. Exam: 16:36 Constitutional: This is a well developed, well nourished patient who is awake, alert, kishan and in no acute distress. Head/Face: Normocephalic, atraumatic. Eyes: Pupils equal round and reactive to light, extra-ocular motions intact. Lids and lashes normal. Conjunctiva and sclera are non-icteric and not injected. Cornea within normal limits. Periorbital areas with no swelling, redness, or edema. ENT: Nares patent. No nasal discharge, no septal abnormalities noted. Tympanic membranes are normal and external auditory canals are clear. Oropharynx with no redness, swelling, or masses, exudates, or evidence of obstruction, uvula midline. Mucous membranes moist. Neck: Trachea midline, no thyromegaly or masses palpated, and no cervical lymphadenopathy. Supple, full range of motion without nuchal rigidity, or vertebral point tenderness. No Meningismus. Chest/axilla: Normal chest wall appearance and motion. Nontender with no deformity. No lesions are appreciated. Cardiovascular: Regular rate and rhythm with a normal S1 and S2. No gallops, murmurs, or rubs. Normal PMI, no JVD. No pulse deficits. Abdomen/GI: Soft, non-tender, with normal bowel sounds. No distension or tympany. No guarding or rebound. No evidence of tenderness throughout. Back: No spinal tenderness. No costovertebral tenderness. Full range of motion. Skin: Warm, dry with normal turgor. Normal color with no rashes, no lesions, and no evidence of cellulitis. MS/ Extremity: Pulses equal, no cyanosis. Neurovascular intact. Full, normal range of motion. Neuro: Awake and alert, GCS 15, oriented to person, place, time, and situation. Cranial nerves II-XII grossly intact. Motor strength 5/5 in all extremities. Sensory grossly intact. Cerebellar exam normal. Normal gait. Psych: Awake, alert, with orientation to person, place and time. Behavior, mood, and affect are within normal limits. 16:36 Respiratory: mild respiratory distress is noted, Respirations: labored breathing, that is mild, that is moderate, Breath sounds: bronchial sounds, decreased breath sounds, rhonchi, Respiratory rate: 354 Vital Signs: 16:32 Pulse 90; Resp 22; Temp 101(O); Pulse Ox 90% on R/A; Weight 93.39 kg; Height 6 ft. 0 hj in. (182.88 cm); 16:33 BP 136 / 82; Resp 36; sv 17:29 BP 130 / 69; Pulse 102; Resp 22; Temp 100.7(O); Pulse Ox 96% on trache; hj 17:51 BP 124 / 68; Pulse 123; Resp 20; Pulse Ox 97% on trach; hj 18:46 BP 103 / 56; Pulse 110; Resp 18; Temp 99.3(O); Pulse Ox 93% on Nebulizer Mask; hj 19:12 BP 126 / 61; Pulse 93; Resp 19 S; Pulse Ox 93% on Nebulizer Mask; hj 20:18 BP 113 / 67; Pulse 75; Resp 19 S; Pulse Ox 98% ; jd3 16:32 Body Mass Index 27.92 (93.39 kg, 182.88 cm) MDM: 16:31 Patient medically screened. [facility] 16:36 Data reviewed: vital signs, nurses notes, lab test result(s), EKG, radiologic studies, kishan plain films. 06/13 16:36 Order name: Basic Metabolic Panel; Complete Time: 17:24 [facility] 06/13 16:36 Order name: CBC with Diff [facility] 06/13 16:36 Order name: LFT's; Complete Time: 17:24 [facility] 06/13 16:36 Order name: Magnesium; Complete Time: 17:24 [facility] 06/13 16:36 Order name: NT PRO-BNP; Complete Time: 17:24 [facility] 06/13 16:36 Order name: PT-INR; Complete Time: 17:24 [facility] 06/13 16:36 Order name: Troponin (emerg Dept Use Only); Complete Time: 17:24 [facility] 06/13 16:36 Order name: XRAY Chest (1 view); Complete Time: 17:24 [facility] 06/13 16:36 Order name: Blood Culture Adult (2) 06/13 16:36 Order name: Procalcitonin; Complete Time: 19:30 [facility] 06/13 16:36 Order name: Lactate; Complete Time: 17:24 [facility] 06/13 16:36 Order name: Lipase; Complete Time: 17:24 [facility] 06/13 16:36 Order name: Sputum Culture 06/13 18:00 Order name: ABG; Complete Time: 19:30 [facility] 06/13 16:36 Order name: EKG; Complete Time: 16:37 [facility] 06/13 16:36 Order name: Cardiac monitoring; Complete Time: 16:38 [facility] 06/13 16:36 Order name: EKG - Nurse/Tech; Complete Time: 16:53 [facility] 06/13 16:36 Order name: IV Saline Lock; Complete Time: 16:53 [facility] 06/13 16:36 Order name: Labs collected and sent; Complete Time: 16:53 [facility] 06/13 16:36 Order name: O2 Per Protocol; Complete Time: 16:38 [facility] 06/13 16:36 Order name: O2 Sat Monitoring; Complete Time: 16:38 [facility] Administered Medications: 16:45 Drug: NS 0.9% 500 ml Route: IV; Rate: bolus; Site: left antecubital; hj 17:15 Follow up: IV Status: Completed infusion hj 16:45 Drug: SOLU-Medrol 125 mg Route: IVP; Site: left antecubital; hj 17:05 Follow up: Response: No adverse reaction hj 16:45 Drug: Zosyn 3.375 grams Route: IVPB; Infused Over: 60 mins; Site: left antecubital; hj 18:31 Follow up: IV Status: Completed infusion hj 16:57 Drug: Xopenex 3.75 mg Route: Inhalation; hj 16:57 Drug: AtroVENT Aerosol 0.5 mg Route: Inhalation; hj 17:06 Not Given (Patient Refused): Tylenol Suppository 650 mg HI once hj 17:06 Drug: Tylenol 650 mg Route: PO; hj 17:06 Follow up: Response: No adverse reaction hj 17:15 Drug: NS 0.9% 1000 ml Route: IV; Rate: 125 ml/hr; Site: left antecubital; hj 18:44 Follow up: IV Status: Infusion continued hj 17:25 Drug: Motrin 800 mg Route: PO; hj 18:30 Follow up: Response: No adverse reaction hj 17:28 Drug: Xopenex (3) 1.25 mg Route: Inhalation; hj 17:28 Drug: Decadron - Dexamethasone 10 mg Route: IVP; Site: left antecubital; hj 18:30 Follow up: Response: No adverse reaction hj 18:13 Drug: vancoMYCIN 1 grams Route: IVPB; Infused Over: 2 hrs; Site: left antecubital; hj 18:30 Follow up: IV Status: Completed infusion hj 18:40 Drug: morphine 4 mg Route: IVP; Site: left antecubital; hj 18:41 Follow up: Response: No adverse reaction hj 18:40 Drug: Zofran 4 mg Route: IVP; Site: left antecubital; hj 18:41 Follow up: Response: No adverse reaction Disposition: 06/13/18 17:[address] [facility]. Diagnosis are Dyspnea, Hypoxemia, Tracheostomy status, Tracheostomy complications, Other pneumonia, unspecified organism - trach/aspiration, Chronic obstructive pulmonary disease with (acute) exacerbation. - Reason for transfer: Higher level of care. - Accepting physician is to ccu. - Condition is Fair. - Problem is new. - Symptoms have improved. Signatures: Dispatcher [employer] Keya Fletcher, RN Ren Coombs MD MD cha Calderon, Audri RN RN aa5 Hernandez Hernandez RN RN hj Davies, Jonathon, RN RN jd3 Corrections: (The following items were deleted from the chart) 18:24 17:42 06/13/2018 17:[address] [facility]. Diagnosis is kishan Dyspnea; Hypoxemia; Tracheostomy status; Tracheostomy complications; Other pneumonia, unspecified organism - trach/aspiration. Reason for transfer: Higher level of care. Accepting physician is to ccu. Condition is Fair. Problem is new. Symptoms have improved. kishan 20:32 18:24 06/13/2018 17:[address] [facility]. Diagnosis is jd3 Dyspnea; Hypoxemia; Tracheostomy status; Tracheostomy complications; Other pneumonia, unspecified organism - trach/aspiration; Chronic obstructive pulmonary disease with (acute) exacerbation. Reason for transfer: Higher level of care. Accepting physician is to ccu. Condition is Fair. Problem is new. Symptoms have improved. kishan
--- NOTE | 2018-06-13 17:43 | ER ---
Nurse's Notes [facility] Name: Akin Pugh Age: 47 yrs Sex: Male : 1970 Arrival Date: 06/13/2018 Time: 16:28 Bed 4 Private MD: Diagnosis: Dyspnea;Hypoxemia;Tracheostomy status;Tracheostomy complications;Other pneumonia, unspecified organism-trach/aspiration;Chronic obstructive pulmonary disease with (acute) exacerbation Presentation: 06/13 16:26 Presenting complaint: states: dyspnea, pt was d/c'd from [facility] at noon. Pt sv had a routine biopsy done on Saturday and coded on the table and they had to put in another tracheostomy and had a pneumothorax. Pt had his last trach removed in November 2017. PET scan done and "it lit up worse from his esophagus, throat, and tongue.". Transition of care: patient was not received from another setting of care. Onset of symptoms was June 13, 2018. Care prior to arrival: None. 16:26 Method Of Arrival: Wheelchair sv 16:26 Acuity: PAO 3 sv 16:34 Risk Assessment: Do you want to hurt yourself or someone else? Patient reports no hj desire to harm self or others. Initial Sepsis Screen: Does the patient meet any 2 criteria? Temp <36.0*C (96.8*F)) or > 38.3*C (100.9*F). Does the patient have a suspected source of infection? Yes:. Triage Assessment: 16:26 General: Appears uncomfortable, Behavior is calm, cooperative, appropriate for age. sv Neuro: Level of Consciousness is awake, alert, obeys commands, Moves all extremities. Gait is steady. Respiratory: Respiratory effort is even, unlabored, Respiratory pattern is symmetrical, tachypnea the patient has moderate shortness of breath. 16:36 Respiratory: Reports shortness of breath Onset: The symptoms/episode began/occurred. hj Historical: - Allergies: 16:33 Iodine; sv 16:33 2 unknown antibiotics; sv - Home Meds: 16:36 escitalopram oxalate Oral [Active]; Levoxyl Oral [Active]; hj - PMHx: 16:33 Asthma; COPD; THROAT CA; sv - PSHx: 16:33 Appendectomy; trach x2; sv - Immunization history:: Adult Immunizations up to date. - Social history:: Smoking status: Patient/guardian denies using tobacco, Patient/guardian denies using alcohol. - Family history:: not pertinent. - Ebola Screening: : Patient negative for fever greater than or equal to 101.5 degrees Fahrenheit, and additional compatible Ebola Virus Disease symptoms Patient denies exposure to infectious person Patient denies travel to an Ebola-affected area in the 21 days before illness onset. Screenin:33 Abuse screen: Denies threats or abuse. Denies injuries from another. Nutritional hj screening: No deficits noted. Tuberculosis screening: No symptoms or risk factors identified. Fall Risk None identified. Assessment: 16:33 Pain: Denies pain. Cardiovascular: Rhythm is. Respiratory: Airway is patent Respiratory hj effort is labored, Respiratory pattern is regular, symmetrical, 16:33 General: Appears in no apparent distress. uncomfortable, Behavior is calm, cooperative, hj appropriate for age. Neuro: Level of Consciousness is awake, alert, obeys commands, Oriented to person, place, time, situation, Appropriate for age. GI: No signs and/or symptoms were reported involving the gastrointestinal system. : No signs and/or symptoms were reported regarding the genitourinary system. EENT: No signs and/or symptoms were reported regarding the EENT system. Throat trach. Derm: No signs and/or symptoms reported regarding the dermatologic system. Musculoskeletal: No signs and/or symptoms reported regarding the musculoskeletal system. 16:45 Reassessment: Patient and/or family updated on plan of care and expected duration. Pain hj level reassessed. Patient is alert, oriented x 3, equal unlabored respirations, skin warm/dry/pink. respiratory assistant in room for suctioning;. 17:00 Reassessment: Patient and/or family updated on plan of care and expected duration. Pain hj level reassessed. Patient is alert, oriented x 3, equal unlabored respirations, skin warm/dry/pink. breathing tx on going;. 17:15 Reassessment: Pt reports difficulty breathing, pt states "I feel like I am gasping". aa5 Tracheostomy deep suctioned by me, 91% via blow-by oxygen. Small amount of yellowish sputum noted. . 17:20 Reassessment: MD notified of no relief after deep suctioning pt 5 times. RT at bedside. aa5 RT removed inner cannula per MD and cleaning it at this time. . 17:23 Reassessment: JEAN Ng at bedside at this time. . aa5 18:00 Reassessment: Patient and/or family updated on plan of care and expected duration. Pain hj level reassessed. Patient is alert, oriented x 3, equal unlabored respirations, skin warm/dry/pink. pt complaining of L sided chest pain; MD aware with orders;. 18:42 Reassessment: Patient and/or family updated on plan of care and expected duration. Pain hj level reassessed. Patient is alert, oriented x 3, equal unlabored respirations, skin warm/dry/pink. awaiting transfer papers;. 19:11 Reassessment: Patient appears in no apparent distress at this time. Patient and/or jd3 family updated on plan of care and expected duration. Pain level reassessed. Patient is alert, oriented x 3, equal unlabored respirations, skin warm/dry/pink. attempted to call report/ nurse currently in shift change, with call again. 19:41 Reassessment: pt given sterile suction catheter to perform suctioning himself. pt did ak1 not wish to have RT come suction him. 19:46 Reassessment: report given to Terri PENA at [facility]. jd3 20:15 Reassessment: Patient appears in no apparent distress at this time. Patient and/or jd3 family updated on plan of care and expected duration. Pain level reassessed. Patient is alert, oriented x 3, equal unlabored respirations, skin warm/dry/pink. report given to EMS. Vital Signs: 16:32 Pulse 90; Resp 22; Temp 101(O); Pulse Ox 90% on R/A; Weight 93.39 kg; Height 6 ft. 0 hj in. (182.88 cm); 16:33 BP 136 / 82; Resp 36; sv 17:29 BP 130 / 69; Pulse 102; Resp 22; Temp 100.7(O); Pulse Ox 96% on trache; hj 17:51 BP 124 / 68; Pulse 123; Resp 20; Pulse Ox 97% on trach; hj 18:46 BP 103 / 56; Pulse 110; Resp 18; Temp 99.3(O); Pulse Ox 93% on Nebulizer Mask; hj 19:12 BP 126 / 61; Pulse 93; Resp 19 S; Pulse Ox 93% on Nebulizer Mask; hj 20:18 BP 113 / 67; Pulse 75; Resp 19 S; Pulse Ox 98% ; jd3 16:32 Body Mass Index 27.92 (93.39 kg, 182.88 cm) hj ED Course: 16:28 Patient arrived in ED. hj 16:31 Ren Bruner MD is Attending Physician. [facility] 16:32 Hernandez Hernandez, JEAN is Primary Nurse. hj 16:33 Triage completed. sv 16:34 Arm band placed on. sv 16:34 Arm band placed on right wrist. hj 16:36 Patient has correct armband on for positive identification. Placed in gown. Bed in low hj position. Call light in reach. Side rails up X 1. Adult w/ patient. 16:44 EKG done, by [employer] residential service technician. reviewed by Ren Bruner MD. sm3 16:45 Initial lab(s) drawn, by me, sent to lab. First set of blood cultures drawn by me. hj 16:52 Inserted saline lock: 20 gauge in left antecubital area, using aseptic technique. hj ,using aseptic technique. PC, SN Blood collected. 16:57 X-ray completed. Portable x-ray completed in exam room. Patient tolerated procedure ml well. 16:58 XRAY Chest (1 view) In Process Unspecified. EDMS 17:00 Second set of blood cultures drawn by me. hj 17:[address] Bruner with Linnea at the [facility] transfer center. eb 17:[address] Diaz the veterans contact representative from [facility] with Dr. Bruner for patient transfer eb consultation. 17:[address] Crowder with Dr. Bruner for patient transfer consultation. eb 19:42 No provider procedures requiring assistance completed. ak1 20:18 Patient transferred, IV remains in place. jd3 Administered Medications: 16:45 Drug: NS 0.9% 500 ml Route: IV; Rate: bolus; Site: left antecubital; hj 17:15 Follow up: IV Status: Completed infusion hj 16:45 Drug: SOLU-Medrol 125 mg Route: IVP; Site: left antecubital; hj 17:05 Follow up: Response: No adverse reaction hj 16:45 Drug: Zosyn 3.375 grams Route: IVPB; Infused Over: 60 mins; Site: left antecubital; hj 18:31 Follow up: IV Status: Completed infusion hj 16:57 Drug: Xopenex 3.75 mg Route: Inhalation; hj 16:57 Drug: AtroVENT Aerosol 0.5 mg Route: Inhalation; hj 17:06 Not Given (Patient Refused): Tylenol Suppository 650 mg ND once hj 17:06 Drug: Tylenol 650 mg Route: PO; hj 17:06 Follow up: Response: No adverse reaction hj 17:15 Drug: NS 0.9% 1000 ml Route: IV; Rate: 125 ml/hr; Site: left antecubital; hj 18:44 Follow up: IV Status: Infusion continued hj 17:25 Drug: Motrin 800 mg Route: PO; hj 18:30 Follow up: Response: No adverse reaction hj 17:28 Drug: Xopenex (3) 1.25 mg Route: Inhalation; hj 17:28 Drug: Decadron - Dexamethasone 10 mg Route: IVP; Site: left antecubital; hj 18:30 Follow up: Response: No adverse reaction hj 18:13 Drug: vancoMYCIN 1 grams Route: IVPB; Infused Over: 2 hrs; Site: left antecubital; hj 18:30 Follow up: IV Status: Completed infusion hj 18:40 Drug: morphine 4 mg Route: IVP; Site: left antecubital; hj 18:41 Follow up: Response: No adverse reaction hj 18:40 Drug: Zofran 4 mg Route: IVP; Site: left antecubital; hj 18:41 Follow up: Response: No adverse reaction hj Outcome: 17:42 ER care complete, transfer ordered by MD. holley 20:16 Transferred by ground EMS to [facility], Transfer form completed. jd3 X-rays sent w/ patient. 20:16 Condition: stable 20:16 Instructed on the need for transfer, Demonstrated understanding of instructions. 20:32 Patient left the ED. jd3 Addendum: 06/17/2018 08:05 Addendum: Culture Results: Positive sputum culture. Phone call Attempt #1 Culture s s report faxed to [facility] ATTN: JEAN Moore. Signatures: Dispatcher [employer] Keya Fletcher RN RN sv Anderson, Corey, MD MD cha Lopez, Melissa ml Villegas, Jody, RN RN aa5 Monae Gonzalez RN RN Kamille Chávez RN RN ak1 Hernandez Hernandez RN RN Sujit Diaz RN RN jTran Veloz Shakira 3 Corrections: (The following items were deleted from the chart) 06/13 19:21 19:11 Reassessment: Patient appears in no apparent distress at this time. Patient jd3 and/or family updated on plan of care and expected duration. Pain level reassessed. Patient is alert, oriented x 3, equal unlabored respirations, skin warm/dry/pink. attempted to call report/ nurse currently in shift change, with call again. hj
[2018-06-13] MEDS ORDERED: VANCOMYCIN/NS 1 gm 1 GM/250 ML BAG IV ONE (18:00)
[2018-06-13 18:26] LABS: Arterial Blood Carboxyhemoglob 1.2 % (0-1.5); Blood Gas Oxyhemoglobin 87.3 % (94-97); Blood O2 Saturation 89.4 % (92-98.5)
[2018-06-13] MEDS ORDERED: ONDANSETRON 4 MG/2 ML VIAL ONE (18:47)
[2018-06-13] MEDS ORDERED: MORPHINE 4 MG/ML SYR ONE (18:47)
[2018-06-13 20:42] VITALS: TEMP 99.3
[2018-06-13 20:44] VITALS: BP 113/67; O2SAT 98
[2018-06-13 20:48] LABS: Blood Morphology Comment NOT SEEN (NOT SEEN); Platelet Estimate ADEQ
--- NOTE | 2018-06-14 09:23 | EKG ---
Test Date: 2018-06-13 Test Time: 16:41:37 Property Consultant: [facility]ON MEASUREMENT RESULTS: Intervals: Rate: 87 DC: 132 QRSD: 72 QT: 330 QTc: 397 [place]: P: 54 DC: 132 QRS: 31 T: 36 INTERPRETIVE STATEMENTS: Normal sinus rhythm Normal ECG Compared to ECG 10/12/2017 13:10:03 Sinus arrhythmia no longer present Electronically Signed On 06-14-18 09:21:32 CDT by Mayito Cota
== END 2018-06-13 20:32 | disposition short-term general hospital (02) ==
LOC: ER 16:23
DX: J95.00 Unspecified tracheostomy complication (principal); J18.8 Other pneumonia, unspecified organism; R09.02 Hypoxemia; J44.1 Chronic obstructive pulmonary disease with (acute) exacerbation; Z93.0 Tracheostomy status; Z85.12 Personal history of malignant neoplasm of trachea
CPT/HCPCS: 36415; 71045; 80048; 80076; 82805; 83605; 83690; 83735; 83880; 84145; 84484; 85025; 85610; 87040; 87070; 87077; 87186; 87205; 93005; 96365; 96375; 99285; J2405; J2543; J2930; J3370; J7030

== ENCOUNTER 2018-06-26 16:49 | Observation (INO) | payer MEDICAID ==
--- OUTSIDE RECORDS SUMMARY | 2018-06-26 16:51 | XMS REPORT ---
[...] End Status Dosage System Date Date Hydrocodone-Acet [facility] 36047025943 10-325 MG Active 1 tablet aminophen Orally every 6 as needed hrs Citalopram [facility] 39096067096 20 MG Orally Active 1 tablet Hydrobromide Once a day Xanax [facility] [address]-49 1 MG Orally Active 1 tablet Once a day Zofran [facility] [address]-13 8 MG Orally Active 1 tablet Twice a day PRN Results No Known Results Summary Purpose eClinicalWorks Submission
--- OUTSIDE RECORDS SUMMARY | 2018-06-26 16:52 | XMS REPORT ---
[...] Status Dosage System Date Date BuPROPion HCl [facility] 04703818088 150 MG Orally Dec 16, Active 1 tablet ER (Smoking Once a day 2018 in the Det) morning Xanax [facility] 94241181601 1 MG Orally Active 1 tablet Once a day Zofran ND 67598763404 8 MG Orally Active 1 tablet Twice a day PRN Hydrocodone-[place] ND 65424969053 10-325 MG Active 1 tablet taminophen Orally every 6 as needed hrs Citalopram ND 37616957220 20 MG Orally Inactive 1 tablet Hydrobromide Once a day Results No Known Results Summary Purpose eClinicalWorks Submission
--- OUTSIDE RECORDS SUMMARY | 2018-06-26 16:52 | XMS REPORT ---
:1970 [facility] Address [address] [place] [address] Dr. Topete [address] [place] [id number] Care Team Providers Name Role Phone Unavailable Unavailable Unavailable Problems This patient has no known problems. Allergies, Adverse Reactions, Alerts This patient has no known allergies or adverse reactions. Medications This patient has no known medications.
--- OUTSIDE RECORDS SUMMARY | 2018-06-26 16:52 | XMS REPORT ---
[...] Status Dosage System Date Date BuPROPion HCl [facility] 08932670024 150 MG Orally Dec 16, Active 1 tablet ER (Smoking Once a day 2018 in the Det) morning Xanax [facility] 41179733815 1 MG Orally Once Active 1 tablet a day Zofran ND 24069779912 8 MG Orally Active 1 tablet Twice a day PRN Hydrocodone-Ac ND 98426925880 10-325 MG Orally Active 1 tablet etaminophen every 6 hrs as needed Results No Known Results Summary Purpose eClinicalWorks Submission
--- NOTE | 2018-06-26 17:43 | RAD REPORT ---
EXAM DESCRIPTION: RAD - Chest Single View - 06/26/2018 5:32 pm CLINICAL HISTORY: Shortness of breath COMPARISON: June 13 TECHNIQUE: AP portable chest image was obtained 1729 hours . FINDINGS: No focal consolidation or mass. Interstitial markings are prominent but not clearly differ ent. Trach tube remains in place. Heart and vasculature are normal. No measurable pleural effusion an d no pneumothorax. No acute bony abnormality seen. No acute aortic findings suspected. IMPRESSION: Chronic interstitial lung disease similar to comparison. No acute finding.
[2018-06-26 17:56] LABS: Hematocrit 39.8 % (39.6-49.0); MPV 8.5 fL (7.6-11.3); RBC Red Blood Cell Count 4.29 M/uL (4.33-5.43)
[2018-06-26 18:17] LABS: BUN Blood Urea Nitrogen 12 mg/dL (7-18); Bicarbonate 26 mmol/L (21-32); Glucose Level 105 mg/dL (74-106); Potassium 3.4 mmol/L (3.5-5.1); Sodium Level 143 mmol/L (136-145)
[2018-06-26 18:32] LABS: Blood Morphology Comment NOTED (NOT SEEN); Platelet Estimate INCR; Polychromasia SLIGHT; Urine White Blood Cell Casts OK
[2018-06-26] MEDS ORDERED: ONDANSETRON 4 MG/2 ML VIAL IV PRN (20:19)
[2018-06-26] MEDS ORDERED: ACETAMINOPHEN 500 MG TAB PO PRN (20:19)
--- NOTE | 2018-06-26 20:36 | ER ---
Nurse's Notes [facility] Name: Akin Pugh Age: 47 yrs Sex: Male : 1970 Arrival Date: 06/26/2018 Time: 16:50 Bed 8 Private MD: Diagnosis: Tracheostomy complications;Hypoxemia Presentation: 06/26 16:57 Presenting complaint: Pt has Stage 3 throat cancer, new trach 2 weeks ago, c/o hb worsening SOB since this morning. Transition of care: patient was not received from another setting of care. Onset of symptoms was June 26, 2018. Risk Assessment: Do you want to hurt yourself or someone else? Patient reports no desire to harm self or others. Care prior to arrival: None. 16:57 Method Of Arrival: Ambulatory hb 16:57 Acuity: PAO 2 hb 17:47 Initial Sepsis Screen: Does the patient meet any 2 criteria? No. Patient's initial jl7 sepsis screen is negative. Does the patient have a suspected source of infection? No. Patient's initial sepsis screen is negative. Triage Assessment: 21:40 Respiratory: Reports shortness of breath Onset: The symptoms/episode began/occurred jd3 this morning, the patient has moderate shortness of breath. Historical: - Allergies: 16:59 2 unknown antibiotics; hb 16:59 Iodine; hb - Home Meds: 16:59 escitalopram oxalate Oral [Active]; Levoxyl Oral [Active]; hb - PMHx: 16:59 Asthma; COPD; THROAT CA; hb - PSHx: 16:59 Appendectomy; trach x2; hb - Immunization history:: Adult Immunizations up to date. - Social history:: Smoking status: Patient/guardian denies using tobacco. - Ebola Screening: : No symptoms or risks identified at this time. Screenin:00 Abuse screen: Denies threats or abuse. Denies injuries from another. Nutritional hb screening: No deficits noted. Tuberculosis screening: No symptoms or risk factors identified. Fall Risk None identified. Assessment: 17:15 General: Appears in no apparent distress. uncomfortable, Behavior is cooperative, jl7 agitated, anxious. Pain: Denies pain. Neuro: Level of Consciousness is awake, alert, obeys commands, Oriented to person, place, time, situation. Cardiovascular: Rhythm is regular. Respiratory: Airway is patent Respiratory effort is even, unlabored, Respiratory pattern is tachypnea Breath sounds are clear bilaterally. GI: No signs and/or symptoms were reported involving the gastrointestinal system. : No signs and/or symptoms were reported regarding the genitourinary system. EENT: No signs and/or symptoms were reported regarding the EENT system. Derm: Skin is pink, warm \T\ dry. Musculoskeletal: No signs and/or symptoms reported regarding the musculoskeletal system. 18:45 Reassessment: Dr. Pardo at bedside. jl7 19:32 Reassessment: No changes from previously documented assessment. Patient and/or family jd3 updated on plan of care and expected duration. Pain level reassessed. Patient is alert, oriented x 3, equal unlabored respirations, skin warm/dry/pink. 20:46 Reassessment: Patient and/or family updated on plan of care and expected duration. Pain jd3 level reassessed. Patient is alert, oriented x 3, equal unlabored respirations, skin warm/dry/pink. pt reported shortness of breath, provider notified, pt reported relief when oxygen cuff was moved closer to pt's tracheostomy. 21:39 Reassessment: Patient appears in no apparent distress at this time. Patient and/or jd3 family updated on plan of care and expected duration. Pain level reassessed. Patient is alert, oriented x 3, equal unlabored respirations, skin warm/dry/pink. Vital Signs: 16:57 BP 112 / 70; Pulse 105; Resp 28; Temp 98.2; Pulse Ox 86% on R/A; Pain 5/10; hb 17:45 BP 118 / 92; Pulse 105; Resp 29; Pulse Ox 96% on 50% Venturi mask; jl7 19:00 BP 122 / 84; Pulse 86; Resp 14; Pulse Ox 95% on 50% Venturi mask; jl7 19:32 BP 122 / 84; Pulse 114; Resp 19 S; Pulse Ox 94% ; jd3 20:49 BP 111 / 74; Pulse 96; Resp 19 S; Pulse Ox 96% ; jd3 ED Course: 16:50 Patient arrived in ED. ds1 16:57 Eligio Gilbert MD is Attending Physician. kdr 16:57 Luisito Diaz RN is Primary Nurse. jl7 16:59 Triage completed. hb 16:59 Arm band placed on. hb 17:00 EKG done, by information technology administrator. reviewed by Eligio Gilbert MD. sm3 17:30 Missed attempt(s): 20 gauge in right wrist. Bleeding controlled, band aid applied, jl7 catheter tip intact. 17:33 CXR XRAY In Process Unspecified. EDMS 17:35 Inserted saline lock: 22 gauge in right wrist, using aseptic technique. pc1 17:35 Initial lab(s) drawn, by me, sent to lab. jl7 17:45 Patient has correct armband on for positive identification. Bed in low position. Call jl7 light in reach. Side rails up X 1. equipment monitor phototypesetting on. Pulse ox on. NIBP on. 19:08 Attending Physician role handed off by Eligio Gilbert MD 19:08 Claudio Jimenes MD is Attending Physician. 19:19 Primary Nurse role handed off by Luisito Diaz RN jl7 19:32 Sujit Bae RN is Primary Nurse. j 20:35 Sara Vilchis MD is Hospitalizing Provider. 21:40 No provider procedures requiring assistance completed. Patient admitted, IV remains in jd3 place. Administered Medications: No medications were administered Outcome: 19:18 Attestation : I agree with everything charted by Cornell Krishnamurthy, Student Nurse. [facility] 20:35 Decision to Hospitalize by Provider. 21:40 Admitted to Tele accompanied by tech, via stretcher, room 421, with oxygen, with chart, jd3 Report called to Aziza PENA 21:40 Condition: stable 21:40 Instructed on the need for admit, Demonstrated understanding of instructions. 21:51 Patient left the ED. jd3 Signatures: Dispatcher [employer] EDND Eligio Gilbert MD MD kdr Sanford, Demi ds1 aY Acosta RN RN Luisito Diaz RN RN 7 Claudio Jimenes MD MD Sujit Bae RN RN Emily Chaves [facility] Cornell Krishnamurthy [facility]
--- NOTE | 2018-06-26 20:36 | EDPHYS ---
Physician Documentation [facility] Name: Akin Pugh Age: 47 yrs Sex: Male : 1970 Arrival Date: 06/26/2018 Time: 16:50 Bed 8 Private MD: ED Physician Claudio Jimenes HPI: 06/26 17:23 This 47 yrs old Male presents to ER via Ambulatory with complaints of kdr Breathing Difficulty. 17:23 The patient has shortness of breath at rest, with light activity. Onset: The kdr symptoms/episode began/occurred gradually, this morning. Duration: The symptoms are continuous, and are steadily getting worse. The patient's shortness of breath is aggravated by coughing, exertion, light activity, is alleviated by nothing, The patient has attempted to suction his trach without sufficient productive results to allow him to feel less dyspneic. He denies any other constitutional s/s. States that suctioning his trach has been difficult to suction from time to time. Respiratory states that this is a recurrent problem. . Associated signs and symptoms: The patient has no apparent associated signs or symptoms, Pertinent negatives: diaphoresis, fever, loss of consciousness, vomiting. Severity of symptoms: At their worst the symptoms were mild moderate just prior to arrival, in the emergency department the symptoms are unchanged. The patient has experienced similar episodes in the past, a few times. The patient has been recently seen by a physician: Dr. Bryan in the last few days for routine eval and she took the prior chest tube sutures out without problem. Historical: - Allergies: 16:59 2 unknown antibiotics; hb 16:59 Iodine; hb - Home Meds: 16:59 escitalopram oxalate Oral [Active]; Levoxyl Oral [Active]; hb - PMHx: 16:59 Asthma; COPD; THROAT CA; hb - PSHx: 16:59 Appendectomy; trach x2; hb - Immunization history:: Adult Immunizations up to date. - Social history:: Smoking status: Patient/guardian denies using tobacco. - Ebola Screening: : No symptoms or risks identified at this time. ROS: 17:23 Constitutional: Negative for fever, chills, and weight loss, Eyes: Negative for injury, kdr pain, redness, and discharge, Neck: Negative for injury, pain, and swelling, Cardiovascular: Negative for chest pain, palpitations, and edema, Abdomen/GI: Negative for abdominal pain, nausea, vomiting, diarrhea, and constipation, Back: Negative for injury and pain, : Negative for injury, bleeding, discharge, and swelling, MS/Extremity: Negative for injury and deformity, Skin: Negative for injury, rash, and discoloration, Neuro: Negative for headache, weakness, numbness, tingling, and seizure activity. Psych: Negative for depression, anxiety, suicide ideation, homicidal ideation, and hallucinations, Allergy/Immunology: Negative for hives, rash, and allergies, Endocrine: Negative for neck swelling, polydipsia, polyuria, polyphagia, and marked weight changes, Hematologic/Lymphatic: Negative for swollen nodes, abnormal bleeding, and unusual bruising. 17:23 Respiratory: Positive for cough, dyspnea on exertion, shortness of breath, at rest. Negative for hemoptysis, orthopnea, pleurisy. Exam: 17:23 Constitutional: This is a well developed, well nourished patient who is awake, alert, kdr and in mild distress. Head/Face: Normocephalic, atraumatic. Eyes: Pupils equal round and reactive to light, extra-ocular motions intact. Lids and lashes normal. Conjunctiva and sclera are non-icteric and not injected. Cornea within normal limits. Periorbital areas with no swelling, redness, or edema. Chest/axilla: Normal chest wall appearance and motion. Nontender with no deformity. No lesions are appreciated. Cardiovascular: Regular rate and rhythm with a normal S1 and S2. No gallops, murmurs, or rubs. Normal PMI, no JVD. No pulse deficits. Respiratory: Lungs have equal breath sounds bilaterally, clear to auscultation and percussion. No rales, rhonchi or wheezes noted. No increased work of breathing, no retractions or nasal flaring. Abdomen/GI: Soft, non-tender, with normal bowel sounds. No distension or tympany. No guarding or rebound. No evidence of tenderness throughout. Back: No spinal tenderness. No costovertebral tenderness. Full range of motion. Skin: Warm, dry with normal turgor. Normal color with no rashes, no lesions, and no evidence of cellulitis. MS/ Extremity: Pulses equal, no cyanosis. Neurovascular intact. Full, normal range of motion. Neuro: Awake and alert, GCS 15, oriented to person, place, time, and situation. Cranial nerves II-XII grossly intact. Motor strength 5/5 in all extremities. Sensory grossly intact. Cerebellar exam normal. Normal gait. Psych: Awake, alert, with orientation to person, place and time. Behavior, mood, and affect are within normal limits. 17:23 Neck: Trah in place with no apparent issues - no stridor and no retractions. 17:47 ECG was reviewed by the Attending Physician. kdr Vital Signs: 16:57 BP 112 / 70; Pulse 105; Resp 28; Temp 98.2; Pulse Ox 86% on R/A; Pain 5/10; hb 17:45 BP 118 / 92; Pulse 105; Resp 29; Pulse Ox 96% on 50% Venturi mask; jl7 19:00 BP 122 / 84; Pulse 86; Resp 14; Pulse Ox 95% on 50% Venturi mask; jl7 19:32 BP 122 / 84; Pulse 114; Resp 19 S; Pulse Ox 94% ; jd3 20:49 BP 111 / 74; Pulse 96; Resp 19 S; Pulse Ox 96% ; jd3 MDM: 18:20 Data reviewed: vital signs, nurses notes. ED course: The patient had some transient kdr improvement with initial suctioning. Then his work of breathing/dyspnea returned. Saturation was maintained at about 95% on 35% via trach mask. ED course: Dr. Bryan will see the patient in the room to change out the trach . 19:08 Patient medically screened. gs 20:32 Differential diagnosis: pneumonia, Pneumothorax upper airway obstruction, dr bryan gs and , mr james cleared trache sats good pt complained of pain still sob will obs dr porter and irvin aware. 06/26 17:10 Order name: CBC w/o diff; Complete Time: 19:16 kdr 06/26 17:10 Order name: Chem 7; Complete Time: 19:16 kdr 06/26 18:31 Order name: CBC Smear Scan; Complete Time: 19:16 EDMS 06/26 20:23 Order name: CBC with Automated Diff EDMS 06/26 20:23 Order name: CBC with Automated Diff EDMS 06/26 20:23 Order name: Comprehensive Metabolic Panel EDMS 06/26 17:09 Order name: CXR XRAY; Complete Time: 18:10 kdr 06/26 17:13 Order name: Misc. Order: Get trach tub replacement to bedside (6 cuffed/uncuffed); kdr Complete Time: 17:48 06/26 17:58 Order name: EKG Electrocardiogram; Complete Time: 17:59 [facility] 06/26 20:23 Order name: CONS Pharmacy Consult [facility] 06/26 20:23 Order name: Heart Healthy [facility] 06/26 20:23 Order name: EKG Electrocardiogram [facility] 06/26 20:23 Order name: EKG Electrocardiogram [facility] 06/26 20:23 Order name: Comprehensive Metabolic Panel [facility] 06/26 17:39 Order name: IV Start; Complete Time: 17:39 jl7 EC:47 Rate is 103 beats/min. Rhythm is regular. QRS [place] is Normal. SD interval is normal. kdr QRS interval is normal. QT interval is normal. No Q waves. Clinical impression: Sinus tachycardia. Administered Medications: No medications were administered Disposition: 20:32 Critical Care:. gs Disposition: 06/26/18 20:35 Hospitalization ordered by Sara Porter for Observation. Preliminary diagnosis are Tracheostomy complications, Hypoxemia. - Bed requested for Telemetry/MedSurg (observation). - Status is Observation. jd3 - Condition is Stable. - Problem is an acute exacerbation. - Symptoms have improved. UTI on Admission? No Critical care time excluding procedures: 20:32 Critical care time: Bedside Care: 10 minutes, Consultation: 10 minutes, Family gs Intervention: 10 minutes. Total time: 30 minutes Signatures: Dispatcher [employer] [facility] Amanda Garcia RN RN aa1 Eligio Gilbert MD MD [facility] Ya Acosta RN RN hb Leal, Jahala, RN RN jl7 Claudio Jimenes MD MD gs Davies, Jonathon, RN RN jd3 Corrections: (The following items were deleted from the chart) 20:48 20:35 Hospitalization Ordered by Sara Porter MD for Observation. Preliminary aa1 diagnosis is Tracheostomy complications; Hypoxemia. Bed requested for Telemetry/MedSurg (observation). Status is Observation. Condition is Stable. Problem is an acute exacerbation. Symptoms have improved. UTI on Admission? No. gs 21:51 20:48 06/26/2018 20:35 Hospitalization Ordered by Sara Porter MD for Observation. jd3 Preliminary diagnosis is Tracheostomy complications; Hypoxemia. Bed requested for Telemetry/MedSurg (observation). Status is Observation. Condition is Stable. Problem is an acute exacerbation. Symptoms have improved. UTI on Admission? No. aa1
[2018-06-26] MEDS ORDERED: ALBUTEROL 2.5 MG/3 ML NEB SOL NEB SCH (21:00)
[2018-06-26] MEDS ORDERED: IPRATROPIUM BROM 0.5MG/2.5ML ONE (21:20)
[2018-06-26] MEDS: IPRATROPIUM BROM 0.5MG/2.5ML NEB SCH (22:00)
[2018-06-26] MEDS: NA CHLORIDE 0.9% 1,000 ML IV SCH (23:33)
[2018-06-26] MEDS: MORPHINE 2 MG/ML SYR IV PRN (23:33)
[2018-06-26 23:38] VITALS: BMI 25.3
[2018-06-27] MEDS: IPRATROPIUM BROM 0.5MG/2.5ML NEB SCH ×4 (02:00→20:00)
[2018-06-27] MEDS ORDERED: METHYLPREDNISOLONE 125 MG INJ IV ONE (02:44)
[2018-06-27] MEDS: HYDROCODONE/APAP 10/325 TAB PO PRN ×3 (03:22→22:38)
[2018-06-27] MEDS: MORPHINE 2 MG/ML SYR IV PRN ×5 (04:35→21:05)
[2018-06-27] MEDS: NA CHLORIDE 0.9% 1,000 ML IV SCH ×2 (04:36→16:55)
[2018-06-27 05:17] LABS: Urine Appearance CLOUDY; Urine Bilirubin NEGATIVE (NEG); Urine Blood NEGATIVE (NEG); Urine Color DK YELLOW; Urine Glucose NEGATIVE (NEG); Urine Protein TRACE (NEG); Urine Specific Gravity >=1.030 (1.005-1.030); Urine Urobilinogen 0.2 mg/dL (0.2-1.0)
[2018-06-27 05:20] LABS: Urine Microscopic Reflex ORDER UMIC
[2018-06-27] MEDS: LEVOTHYROXINE SOD 0.1 MG TAB PO SCH (06:03)
[2018-06-27 06:07] LABS: Calcium Oxalate Crystals- Ur FEW (NONE SEEN); Urine Amorphous Sediment 4+ /HPF (NONE SEEN); Urine Bacteria <20 /HPF (NONE SEEN); Urine Culture Reflex Order NOT NEEDED; Urine RBC NONE SEEN /HPF (NONE SEEN)
[2018-06-27 06:10] LABS: Absolute Lymphocytes (CBC) 0.4 K/uL (0.7-4.9); Absolute Monocytes 0.7 K/uL (0.1-1.3); Absolute Neutrophil 8.1 K/uL (1.8-8.0); Basophils % 0.3 % (0-1.3); Eosinophils % 0.8 % (0-4.4); Hematocrit 34.4 % (39.6-49.0); Lymphocytes % 4.3 % (15.3-44.8); MPV 8.5 fL (7.6-11.3); Monocytes % 7.5 % (3.3-12.3); RBC Red Blood Cell Count 3.73 M/uL (4.33-5.43)
--- NOTE | 2018-06-27 06:13 | EKG ---
Test Date: 2018-06-26 Test Time: 16:56:06 Gate Guard: PRESTON MEASUREMENT RESULTS: Intervals: Rate: 103 MN: 146 QRSD: 78 QT: 336 QTc: 440 Sumrall: P: 68 MN: 146 QRS: 63 T: 39 INTERPRETIVE STATEMENTS: Sinus tachycardia Otherwise normal ECG Compared to ECG 06/13/2018 16:41:37 Sinus rhythm no longer present Electronically Signed On 06-27-18 06:12:40 CDT by Hema Rojas
[2018-06-27 06:31] LABS: ALT/SGPT 56 U/L (12-78); AST/SGOT 17 U/L (15-37); Albumin 2.6 g/dL (3.4-5.0); Alkaline Phosphatase 92 U/L (45-117); BUN Blood Urea Nitrogen 9 mg/dL (7-18); Bicarbonate 26 mmol/L (21-32); Bilirubin Total 0.5 mg/dL (0.2-1.0); Glucose Level 109 mg/dL (74-106); Potassium 3.5 mmol/L (3.5-5.1); Sodium Level 140 mmol/L (136-145)
[2018-06-27 07:35] LABS: Anisocytosis 1+; Blood Morphology Comment NOTED (NOT SEEN); Platelet Estimate ADEQ; Platelets, Giant RARE; Polychromasia 1+
[2018-06-27] MEDS: ACETYLCYST 20% 4 ML VIAL IH SCH ×2 (08:01→20:00)
[2018-06-27] MEDS: CEFTRIAXONE/SWI 1gm 1 GM/10 ML SYR IV SCH (08:28)
[2018-06-27] MEDS: ESCITALOPRAM 20 MG TAB PO SCH (08:29)
[2018-06-27] MEDS: MUPIROCIN 2% OINT 22GM TUBE TOP SCH ×2 (08:29→21:05)
--- NOTE | 2018-06-27 08:53 | CON ---
Reason For Consultation: Shortness of breath, concern for airway obstruction. History Of Present Illness: Mr. Pugh is a 47-year-old, well known to me. 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 At that time, he underwent direct laryngoscopy, biopsy, and placement of tracheostomy tube. He subsequently was treated with radiation and chemotherapy. He tolerated therapy as expected, and in November of 2017, presented to the clinic with inadvertent dislodgement of his tracheostomy tube. Evaluation at that time revealed a contracture of the tracheostomy site. A flexible laryngoscopy in the office was performed, which showed smooth, well healed mucosa of his larynx, limited mobility of the left vocal cord consistent with his pre-treatment findings, but overall a good treatment response with no evidence of persistent tumor. At that time, a decision was made to avoid re- cannulation, and the tracheostomy tube was left out. Over the next several months, he continued to have significant throat pain radiating to the ear. Due to concern for recurrance, he was taken to the operating room by me in January of 2018 for a direct laryngoscopy and biopsy, which showed mild cellular atypia and chronic and acute inflammation, but no discrete malignancy. He was observed clinically, but in May, his pain was worse, voice was worse , he was developing some shortness of breath, and laryngoscopy exam at that time showed worsening appearance of the laryngeal mucosa. Due to clinical concern for recurrent or persistent disease, he was referred to [facility] and was seen by Dr. Vinnie Cameron. On June 09, 2018, he was taken by Dr. Cameron at [facility] for a direct laryngoscopy. The details of this procedure are not clear, but the patient did require tracheostomy for presumed airway obstruction, and developed a left pneumothorax as a complication of the procedure. He underwent a chest tube thoracotomy and was admitted to [facility]. He was subsequently discharged on Saturday the . He returned to [facility] later that day with complaint of fever and was transferred back to [facility]. Per the 's report, he was in and out of the ICU with fever. Multiple teams including Pulmonary and Infectious Disease were consulted. Details of radiographic findings and treatment course are not available. The patient was subsequently discharged later that week. The patient presented to my clinic this week with questions regarding the tracheostomy. At that time, a bronchoscopy via existing tracheostomy was performed in the clinic, and the trachea appeared clear with no evidence of crusting or obstruction. We discussed changing to a cuffless tube to try to give him some ability to phonate. However, he is scheduled for total laryngectomy with pectoralis flap on July 14 with the [facility] team, and in light of the short duration of this tube, we elected not to perform a tracheostomy change at that time. The patient then presented on the evening of June 26 to the emergency room complaining of shortness of breath. He was noted to have oxygen saturations in the low to mid 80s, and was placed on supplemental oxygen with mild improvement. A respiratory therapist checked the tracheostomy tube, suctioned and cleaned the inner cannula with no significant improvement. I was consulted for further evaluation. PMH/PSH: reviewed from outpatient chart SH: Recent tobacco use, trying to quit ROS: Reviewed from ER records EXAM: the patient is alert. He is aphonic. He is in mild distress. His oxygen saturations on supplemental oxygen are in the low 90s on trach collar supplemental oxygen. A 6 cuffless Shiley tracheostomy tube was at the bedside, and after discussion with the patient and his , a decision was made for tracheostomy exchange. The existing 6 DCT Shiley tracheostomy tube was removed. The tracheostomy site was poorly healed. In terms of the incision, the skin was not contracted around the tracheostomy tube, but the hole within the trachea was easily visualized. The tube was placed without difficulty, and placement was confirmed by usually feeling movement of air with respirations through the tube. The tube was secured with Velcro ties, but the patient continued to complain of subjective shortness of breath. There is diffuse rash on the back and shoulders. Patient's says he's having to sleep on his back all the time and it's making him breakout to small zits. Old/well healed tattoos on chest and arms No retractions but patient is tripoding somewhat. L chest wall with well healed chest tube site with mild scab, no erythema, no granulation. A flexible bronchoscope was brought to the bedside and was used to perform a tracheo/bronchoscopy via existing tracheotomy tube. There was a significantly large, very thick, sticky piece of mucus, which appeared adherent to the anterior tracheal wall just distal to the tracheostomy tube tip. Deep suctioning was performed several times, and re-examination revealed failure of the crust. This procedure was repeated with FIORELLA Diop, and we were able to dislodge this large crust. After removal of the crust, the trachea was visualized and appeared very irritated. There was no evidence of fresh blood within the tracheostomy. The eusebio and mainstem bronchi were visualized and appeared clear from further crusting. After the procedure, the inner cannula of the tracheostomy was replaced. Data: Chest x-ray was reviewed, and shows no sign of pneumonia or recurrence of his pneumothorax. Assessment: Tracheitis with partial obstruction of the trachea due to thick mucus. Plan: From an ENT standpoint, no additional intervention is required at this time as the patient's airway appears clear. The patient will be evaluated by the hospitalist service for treatment of his thick pulmonary secretions. FIGUEROA/LILLIAN Voice ID: [id number] Report ID: [id number] JODEE
[2018-06-27] MEDS ORDERED: CEFTRIAXONE 1 GM/NS 50 ML 1 GM/50 ML BAG IV SCH (09:00)
[2018-06-27] MEDS ORDERED: MUPIROCIN 2% OINT 22GM TUBE TOP SCH (09:00)
--- NOTE | 2018-06-27 10:22 | P.HP ---
Certification for Inpatient Patient admitted to: Observation With expected LOS: <2 Midnights Patient will require the following post-hospital care: None Practitioner: I am a practitioner with admitting privileges, knowledge of patient current condition, hospital course, and medical plan of care. Services: Services provided to patient in accordance with Admission requirements found in Title 42 Section 412.3 of the Code of Federal Regulations Patient History Date of Service: 06/26/18 Reason for admission: tracheal inflammation History of Present Illness: Patient is a 47-year-old gentleman came into the hospital with a sore throat. Patient was recently rediagnosed with laryngeal cancer. patient had a bronchoscopy performed while in the [facility] and suffered a pneumothorax. Patient require chest tube placement. Patient was subsequently discharged on June 13. Patient followed up with local ENT, Dr. Keya Pardo. Patient was scheduled for follow-up at [facility] in [facility]. Patient is supposed to have a complex procedure; the details of this procedure is not known to myself. Yesterday patient got short of breath. Is having pain around his tracheal region. He came into the ER and he had a laryngeal scope performed which revealed a large thick mucus plug which was adhered to the anterior tracheal wall. This was removed by Dr. Pardo. Patient is otherwise improving. His oxygen saturations came up and he is going to be on humidified O2 with Mucomyst to decrease his secretions. He will be admitted for further evaluation. Allergies levofloxacin [From Levaquin] Allergy (Severe, Verified 02/14/18 10:49) Itching/Hives/Rash ampicillin Allergy (Verified 05/27/18 02:14) Itching/Hives/Rash iodine Allergy (Verified 02/14/18 10:49) Hives/Rash Home Medications: Escitalopram [Lexapro*] 10 mg PO DAILY 05/27/18 Ciprofloxacin HCl 750 mg PO BID 06/26/18 Hydrocodone Bit/Acetaminophen [Hydrocodon-Acetaminophn 10-325] 1 tab PO Q6HP PRN 06/26/18 Levothyroxine Sodium [Levoxyl] 100 mcg PO DAILY 06/26/18 Metronidazole 500 mg PO TID 06/26/18 - Past Medical/Surgical History Has patient received pneumonia vaccine in the past: No Diabetic: No -: Asthma - CHILDHOOD -: DEPRESSION -: STAGE III LARYNYX CANCER -: STAGE III LARYNYX CANCER -: tracheostomy 2 weeks ago -: Appendectomy -: Tracheostomy-removal Oct 2017 -: knee surgery bilateral knees Psychosocial/ Personal History: Patient smokes regularly but plans to quit. - Family History Father Medical History: Heart disease, Diabetes Notes: agent orange: immobile Mother Medical History: Cancer Notes: breast ca - Social History Smoking Status: Former smoker Alcohol use: Yes CD- Drugs: No Caffeine use: Yes Place of Residence: Home Review of Systems 10-point ROS is otherwise unremarkable Physical Examination - Vital Signs Temperature: 97.6 F Blood Pressure: 123/76 Pulse: 83 Respirations: 20 Pulse Ox (%): 95 - Physical Exam General: Alert, In no apparent distress, Oriented x3 HEENT: Atraumatic, Normocephalic, PERRLA, Mucous membr. moist/pink Neck: Supple, 2+ carotid pulse no bruit, JVD not distended, No Thyromegaly, Other ( Tracheostomy) Respiratory: Other ( coarse breath sound) Cardiovascular: Regular rate/rhythm, Normal S1 S2, No murmurs Gastrointestinal: Normal bowel sounds, Soft and benign, Non-distended, No tenderness Musculoskeletal: No clubbing, No swelling Integumentary: No rashes Neurological: Normal gait, Normal speech, Sensation intact, Cranial nerves 3-12 intact, Abnormal strength - Studies Laboratory Data (last 24 hrs) 06/26/18 17:33: Sodium 143, Potassium 3.4 L, BUN 12, Creatinine 0.70, Glucose 105 06/26/18 17:33: WBC 9.6, Hgb 13.6, Hct 39.8, Plt Count 562 H D Assessment & Plan - Problems (Diagnosis) (1) Partial tracheal obstruction Current Visit: Yes Status: Acute (2) Tracheitis Current Visit: Yes Status: Acute (3) Hypoxemia Current Visit: Yes Status: Acute (4) COPD (chronic obstructive pulmonary disease) Onset Date: 10/14/17 Current Visit: No Status: Acute Qualifiers: COPD type: chronic bronchitis Chronic bronchitis type: simple Qualified Code(s): J41.0 - Simple chronic bronchitis (5) Dyspnea Onset Date: 10/14/17 Current Visit: No Status: Acute (6) History of depression Onset Date: 10/14/17 Current Visit: No Status: Acute (7) Laryngeal neoplasm Onset Date: 10/14/17 Current Visit: No Status: Chronic (8) Tobacco abuse Onset Date: 10/14/17 Current Visit: No Status: Chronic - Plan plan: 1. Mucomyst 2. Humidified oxygen 3. ENT consultation appreciated 4. pain control 5. arrange for humidified oxygen at discharge 6. outpatient follow-up next week with [facility] 7. GI and DVT prophylaxis Discharge Plan: Home Plan to discharge in: 48 Hours - Advance Directives Does patient have a Living Will: No Does patient have a Durable POA for Healthcare: No - Code Status/Comfort Care Code Status Assessed: Yes Code Status: Full Code Critical Care: No Time Spent Managing PTS Care (In Minutes): 45
--- NOTE | 2018-06-27 12:51 | EKG ---
Test Date: 2018-06-27 Test Time: 07:33:59 Meeting Coordinator: RAEANN MEASUREMENT RESULTS: Intervals: Rate: 74 ND: 168 QRSD: 78 QT: 378 QTc: 419 Deep [place]: P: 51 ND: 168 QRS: 42 T: 51 INTERPRETIVE STATEMENTS: Normal sinus rhythm Normal ECG Compared to ECG 06/26/2018 16:56:06 Sinus tachycardia no longer present Electronically Signed On 06-27-18 12:50:16 CDT by Hema Rojas
--- NOTE | 2018-06-27 14:01 | P.PN ---
Subjective Date of Service: 06/27/18 Chief Complaint: tracheal inflammation Patient seen and examined at bedside. No family at bedside. Chart reviewed and case discussed with nursing staff. Review of Systems 10-point ROS is otherwise unremarkable Physical Examination - Vital Signs Temperature: 98.4 F Blood Pressure: 140/83 Pulse: 89 Respirations: 20 Pulse Ox (%): 93 - Physical Exam General: Alert, In no apparent distress, Oriented x3 HEENT: Other (trach in place) Respiratory: Clear to auscultation bilaterally, Normal air movement Cardiovascular: Regular rate/rhythm, Normal S1 S2 Gastrointestinal: Normal bowel sounds, No tenderness - Studies Laboratory Data (last 24 hrs) 06/26/18 17:33: Sodium 143, Potassium 3.4 L, BUN 12, Creatinine 0.70, Glucose 105 06/26/18 17:33: WBC 9.6, Hgb 13.6, Hct 39.8, Plt Count 562 H D Assessment And Plan - Current Problems (Diagnosis) (1) Partial tracheal obstruction Current Visit: Yes Status: Acute (2) Tracheitis Current Visit: Yes Status: Acute (3) COPD (chronic obstructive pulmonary disease) Onset Date: 10/14/17 Current Visit: No Status: Acute Qualifiers: COPD type: chronic bronchitis Chronic bronchitis type: simple Qualified Code(s): J41.0 - Simple chronic bronchitis (4) History of depression Onset Date: 10/14/17 Current Visit: No Status: Acute (5) Insomnia Onset Date: 10/14/17 Current Visit: No Status: Acute (6) Laryngeal neoplasm Onset Date: 10/14/17 Current Visit: No Status: Chronic (7) Tobacco abuse Onset Date: 10/14/17 Current Visit: No Status: Chronic - Plan 1. Mucomyst 2. Humidified oxygen 3. ENT consultation appreciated 4. pain control 5. arrange for humidified oxygen at discharge 6. outpatient follow-up next week with [facility] 7. GI and DVT prophylaxis
[2018-06-27] MEDS ORDERED: TEMAZEPAM 15 MG CAP PO PRN (22:59)
[2018-06-28] MEDS: IPRATROPIUM BROM 0.5MG/2.5ML NEB SCH ×2 (02:00→07:40)
[2018-06-28] MEDS: NA CHLORIDE 0.9% 1,000 ML IV SCH (03:33)
[2018-06-28] MEDS: MORPHINE 2 MG/ML SYR IV PRN ×2 (03:34→08:04)
[2018-06-28] MEDS: LEVOTHYROXINE SOD 0.1 MG TAB PO SCH (06:21)
[2018-06-28] MEDS: ACETYLCYST 20% 4 ML VIAL IH SCH (07:40)
[2018-06-28 09:24] VITALS: O2SAT 99
[2018-06-28] MEDS: HYDROCODONE/APAP 10/325 TAB PO PRN (09:26)
[2018-06-28] MEDS: MUPIROCIN 2% OINT 22GM TUBE TOP SCH (09:27)
[2018-06-28] MEDS: CEFTRIAXONE/SWI 1gm 1 GM/10 ML SYR IV SCH (09:29)
[2018-06-28] MEDS: ESCITALOPRAM 20 MG TAB PO SCH (09:29)
--- NOTE | 2018-06-28 10:09 | P.SSS ---
Patient History Date of Service: 06/28/18 Reason for admission: tracheal inflammation History of Present Illness: Patient is a 47-year-old gentleman came into the hospital with a sore throat. Patient was recently rediagnosed with laryngeal cancer. patient had a bronchoscopy performed while in the [facility] and suffered a pneumothorax. Patient require chest tube placement. Patient was subsequently discharged on June 13. Patient followed up with local ENT, Dr. Keya Pardo. Patient was scheduled for follow-up at [facility] in [facility]. Patient is supposed to have a complex procedure; the details of this procedure is not known to myself. Yesterday patient got short of breath. Is having pain around his tracheal region. He came into the ER and he had a laryngeal scope performed which revealed a large thick mucus plug which was adhered to the anterior tracheal wall. This was removed by Dr. Pardo. Patient is otherwise improving. His oxygen saturations came up and he is going to be on humidified O2 with Mucomyst to decrease his secretions. He will be admitted for further evaluation. Allergies levofloxacin [From Levaquin] Allergy (Severe, Verified 02/14/18 10:49) Itching/Hives/Rash ampicillin Allergy (Verified 05/27/18 02:14) Itching/Hives/Rash iodine Allergy (Verified 02/14/18 10:49) Hives/Rash Home Medications: Escitalopram [Lexapro*] 10 mg PO DAILY 05/27/18 Ciprofloxacin HCl 750 mg PO BID 06/26/18 Hydrocodone Bit/Acetaminophen [Hydrocodon-Acetaminophn 10-325] 1 tab PO Q6HP PRN 06/26/18 Levothyroxine Sodium [Levoxyl] 100 mcg PO DAILY 06/26/18 Metronidazole 500 mg PO TID 06/26/18 - Past Medical/Surgical History Has patient received pneumonia vaccine in the past: No Diabetic: No -: Asthma - CHILDHOOD -: DEPRESSION -: STAGE III LARYNYX CANCER -: STAGE III LARYNYX CANCER -: tracheostomy 2 weeks ago -: Appendectomy -: Tracheostomy-removal Oct 2017 -: knee surgery bilateral knees Psychosocial/ Personal History: Patient smokes regularly but plans to quit. - Family History Father -: Heart disease, Diabetes Notes: agent orange: immobile Mother -: Cancer Notes: breast ca - Social History Smoking Status: Former smoker Alcohol use: Yes CD- Drugs: No Caffeine use: Yes Place of Residence: Home Review of Systems 10-point ROS is otherwise unremarkable Physical Examination - Vital Signs Temperature: 98.5 F Blood Pressure: 151/73 Pulse: 61 Respirations: 19 Pulse Ox (%): 94 - Physical Exam General: Alert, In no apparent distress, Oriented x3 HEENT: Other (Trach in place) Neck: Supple, 2+ carotid pulse no bruit, No LAD, Without JVD or thyroid abnormality Respiratory: Clear to auscultation bilaterally, Normal air movement Cardiovascular: Regular rate/rhythm, Normal S1 S2 Gastrointestinal: Normal bowel sounds, No tenderness - Diagnosis (Problem(s)) (1) Partial tracheal obstruction Current Visit: Yes Status: Acute (2) Tracheitis Current Visit: Yes Status: Acute (3) COPD (chronic obstructive pulmonary disease) Onset Date: 10/14/17 Current Visit: No Status: Acute Qualifiers: COPD type: chronic bronchitis Chronic bronchitis type: simple Qualified Code(s): J41.0 - Simple chronic bronchitis (4) History of depression Onset Date: 10/14/17 Current Visit: No Status: Acute (5) Insomnia Onset Date: 10/14/17 Current Visit: No Status: Acute (6) Laryngeal neoplasm Onset Date: 10/14/17 Current Visit: No Status: Chronic (7) Tobacco abuse Onset Date: 10/14/17 Current Visit: No Status: Chronic Treatment Summary: Patient was admitted for shortness of breath. He was noted to have oxygen saturation in the low to mid 80s and was placed on supplemental oxygen with mild improvement. No improvement even after tracheostomy tube check, suctioning and clean the inner cannula. ENT was consulted. The tracheostomy tube was exchanged. Patient tolerated procedure well though still complaining of shortness of breath. Patient underwent a flexible bronchoscope at bedside for tracheoscopy. He was found to have a significant large, thick sticky mucous that was not the right to the anterior tracheal wall just distal to the tracheostomy tube tip. Deep suctioning was performed. The mucous plugs was dislodged. It was noted that the trachea was irritated after this mucus plug removal. No evidence of bleeding noted. Patient did well post procedure. His oxygenation prior to discharge was 99% via the trach collar. He was given Mucomyst and humidified oxygen as well. He will follow up with [facility] next week as he already has this scheduled. Discussed case with ENT via telephone prior to discharge and patient was then cleared for discharge by ENT point of view. - Disposition Discharge Date: 06/28/18 Disposition: ROUTINE DISCHARGE Condition: FAIR Consultations: ENT, Dr. Pardo Patient Discharge Instructions: Please follow up with your primary Care physician in 2-3 days. Please follow up with Dr. Pardo in 1 week. Please continue with your scheduled followup/surgery. Please return to the emergency room for worsening symptoms Diet: Regular Activity: Ad get Time Spent Managing Pts Care (In Minutes): 55
[2018-06-28 12:06] VITALS: BP 119/69; TEMP 97
== END 2018-06-28 11:22 | disposition home or self-care (01) ==
LOC: ER 16:49 → ERHOLD 20:28 → 4TH 21:37
PROVIDERS: ADMIT Hospitalist; ATTEND Hospitalist
PROC: 0BJ08ZZ Inspection of Tracheobronchial Tree, Via Natural or Artificial Opening Endoscopic (ICD-10-PCS; principal; 2018-06-27)
DX: J04.11 Acute tracheitis with obstruction (principal); C32.9 Malignant neoplasm of larynx, unspecified; F32.9 Major depressive disorder, single episode, unspecified; J44.9 Chronic obstructive pulmonary disease, unspecified; G47.00 Insomnia, unspecified; F17.210 Nicotine dependence, cigarettes, uncomplicated; Z88.0 Allergy status to penicillin
CPT/HCPCS: 36415; 71045; 80048; 80053; 81003; 81015; 85025; 85027; 93005; 94640; 99285; G0378; J0696; J2270; J2930; J7030

== ENCOUNTER 2018-07-03 23:44 | Emergency (ER) | payer MEDICAID, SELFPAY ==
--- OUTSIDE RECORDS SUMMARY | 2018-07-03 23:47 | XMS REPORT ---
[...] End Status Dosage System Date Date Hydrocodone-Acet [facility] 70462727772 10-325 MG Active 1 tablet aminophen Orally every 6 as needed hrs Citalopram [facility] 87038877591 20 MG Orally Active 1 tablet Hydrobromide Once a day Xanax [facility] [address]-67 1 MG Orally Active 1 tablet Once a day Zofran [facility] [address]-23 8 MG Orally Active 1 tablet Twice a day PRN Results No Known Results Summary Purpose eClinicalWorks Submission
--- OUTSIDE RECORDS SUMMARY | 2018-07-03 23:47 | XMS REPORT ---
[...] Status Dosage System Date Date BuPROPion HCl [facility][NOTE 3] 05987544615 150 MG Orally Dec 16, Active 1 tablet ER (Smoking Once a day 2018 in the Det) morning Xanax [facility][NOTE 3] 13086710967 1 MG Orally Active 1 tablet Once a day Zofran ND 51989538332 8 MG Orally Active 1 tablet Twice a day PRN Hydrocodone-[place] ND 96818366198 10-325 MG Active 1 tablet taminophen Orally every 6 as needed hrs Citalopram ND 74362036874 20 MG Orally Inactive 1 tablet Hydrobromide Once a day Results No Known Results Summary Purpose eClinicalWorks Submission
--- OUTSIDE RECORDS SUMMARY | 2018-07-03 23:47 | XMS REPORT ---
[...] Status Dosage System Date Date BuPROPion HCl [facility] 97565770381 150 MG Orally Dec 16, Active 1 tablet ER (Smoking Once a day 2018 in the Det) morning Xanax [facility] 45204167875 1 MG Orally Once Active 1 tablet a day Zofran ND 90642079392 8 MG Orally Active 1 tablet Twice a day PRN Hydrocodone-Ac ND 10758117522 10-325 MG Orally Active 1 tablet etaminophen every 6 hrs as needed Results No Known Results Summary Purpose eClinicalWorks Submission
--- OUTSIDE RECORDS SUMMARY | 2018-07-03 23:47 | XMS REPORT ---
:1970 Author Organization [facility] Address [address] [place] [address] Dr. Topete [address] [place] [id number] Care Team Providers Name Role Phone Unavailable Unavailable Unavailable Problems This patient has no known problems. Allergies, Adverse Reactions, Alerts This patient has no known allergies or adverse reactions. Medications This patient has no known medications.
[2018-07-04 00:45] LABS: Protime INR 1.15
[2018-07-04 00:47] LABS: Absolute Lymphocytes (CBC) 0.7 K/uL (0.7-4.9); Absolute Monocytes 1.5 K/uL (0.1-1.3); Absolute Neutrophil 6.6 K/uL (1.8-8.0); Eosinophils % 0.7 % (0-4.4); Hematocrit 37.9 % (39.6-49.0); MPV 8.2 fL (7.6-11.3); Monocytes % 16.4 % (3.3-12.3); RBC Red Blood Cell Count 4.13 M/uL (4.33-5.43)
[2018-07-04] MEDS ORDERED: ALBUTEROL 2.5 MG/3 ML NEB SOL ONE (00:48)
[2018-07-04] MEDS ORDERED: IPRATROPIUM BROM 0.5MG/2.5ML ONE (00:49)
[2018-07-04 01:01] LABS: ALT/SGPT 35 U/L (12-78); AST/SGOT 10 U/L (15-37); Albumin 3.2 g/dL (3.4-5.0); Alkaline Phosphatase 112 U/L (45-117); BUN Blood Urea Nitrogen 5 mg/dL (7-18); Bicarbonate 26 mmol/L (21-32); Bilirubin Direct 0.1 mg/dL (0-0.2); Bilirubin Total 0.4 mg/dL (0.2-1.0); Glucose Level 91 mg/dL (74-106); Magnesium 2.3 mg/dL (1.8-2.4); NT PRO-BNP 98 pg/mL (<125); Potassium 3.2 mmol/L (3.5-5.1); Protein, Total 7.4 g/dL (6.4-8.2); Sodium Level 139 mmol/L (136-145); Troponin (Emerg Dept Use Only) < 0.02 ng/mL (0.0-0.045)
[2018-07-04 02:45] LABS: Blood Morphology Comment NOT SEEN (NOT SEEN); Platelet Estimate ADEQ
--- NOTE | 2018-07-04 02:58 | EDPHYS ---
Physician Documentation [facility] Name: Akin Pugh Age: 48 yrs Sex: Male : 1970 Arrival Date: 07/03/2018 Time: 23:46 Bed 4 Private MD: Chandrakant Thompson ED Physician Sara Jeronimo HPI: 07/04 00:54 This 48 yrs old Male presents to ER via Wheelchair with complaints of ma2 Breathing Difficulty, Trachea problem. 00:54 Onset: The symptoms/episode began/occurred suddenly, 3 hour(s) ago. Duration: The ma2 symptoms are chronic. Associated signs and symptoms: Pertinent negatives: productive cough, fever, loss of consciousness. Severity of symptoms: At their worst the symptoms were mild in the emergency department the symptoms are unchanged. The patient has not experienced similar symptoms in the past, The patient has experienced a previous episode, The patient has experienced similar episodes in the past. Historical: - Allergies: 00:06 Iodine; jd3 00:06 Iodinated Contrast Media - IV Dye; jd3 00:06 Levaquin; jd3 00:06 Ampicillin; jd3 - Home Meds: 00:06 Levoxyl Oral [Active]; escitalopram oxalate Oral [Active]; jd3 - PMHx: 00:06 Asthma; COPD; THROAT CA; jd3 - PSHx: 00:06 Appendectomy; trach x2; chest tube; jd3 - Immunization history:: Adult Immunizations up to date. - Social history:: Smoking status: Patient/guardian denies using tobacco, but has a distant history of tobacco abuse, Patient/guardian denies using alcohol, street drugs, The patient lives with family. - Ebola Screening: : Patient negative for fever greater than or equal to 101.5 degrees Fahrenheit, and additional compatible Ebola Virus Disease symptoms. - Family history:: not pertinent. ROS: 00:54 Constitutional: Negative for fever, chills, and weight loss. ma2 00:54 Respiratory: Positive for cough, Negative for orthopnea, shortness of breath, sputum production. 00:54 All other systems are negative. Exam: 00:54 Constitutional: This is a well developed, well nourished patient who is awake, alert, ma2 and in no acute distress. Chest/axilla: Normal chest wall appearance and motion. Nontender with no deformity. No lesions are appreciated. Cardiovascular: Regular rate and rhythm with a normal S1 and S2. No gallops, murmurs, or rubs. Normal PMI, no JVD. No pulse deficits. Respiratory: Lungs have equal breath sounds bilaterally, clear to auscultation and percussion. No rales, rhonchi or wheezes noted. No increased work of breathing, no retractions or nasal flaring. Abdomen/GI: Soft, non-tender, with normal bowel sounds. No distension or tympany. No guarding or rebound. No evidence of tenderness throughout. MS/ Extremity: Pulses equal, no cyanosis. Neurovascular intact. Full, normal range of motion. Neuro: Awake and alert, GCS 15, oriented to person, place, time, and situation. Cranial nerves II-XII grossly intact. Motor strength 5/5 in all extremities. Sensory grossly intact. Cerebellar exam normal. Normal gait. 00:54 ENT: trach area in good order dry, no stridor no respiratory distress. Vital Signs: 00:06 BP 122 / 83; Pulse 110; Resp 22 S; Temp 98.1(A); Pulse Ox 97% on R/A; Weight 83.91 kg jd3 (R); Height 6 ft. 0 in. (182.88 cm) (R); Pain 10/10; 01:00 BP 128 / 85; Pulse 119; Resp 20; Temp 99.7(O); Pulse Ox 95% ; ea 02:00 BP 103 / 74; Pulse 114; Resp 21; Pulse Ox 94% ; ea 03:00 BP 116 / 66; Pulse 90; Resp 20; Temp 98.9(O); Pulse Ox 100% ; ea 00:06 Body Mass Index 25.09 (83.91 kg, 182.88 cm) jd3 MDM: 00:07 Patient medically screened. ma2 00:54 Differential diagnosis: asthma, Bronchitis pneumonia, reactive airway disease. ma2 02:55 Data reviewed: vital signs, nurses notes, radiologic studies. Counseling: I had a ma2 detailed discussion with the patient and/or guardian regarding: the historical points, exam findings, and any diagnostic results supporting the discharge/admit diagnosis, the presence of at least one elevated blood pressure reading (>120/80) during this emergency department visit, the need for outpatient follow up. ED course: flexible laryngoscope done by dr. stevens and suctioning done symptoms resolved . 07/04 00:08 Order name: Basic Metabolic Panel; Complete Time: :07/04 00:08 Order name: CBC with Diff ma2 07/04 00:08 Order name: LFT's; Complete Time: : ma2 07/04 00:08 Order name: Magnesium; Complete Time: : ma2 07/04 00:08 Order name: NT PRO-BNP; Complete Time: : ma07/04 00:08 Order name: PT-INR; Complete Time: : ma07/04 00:08 Order name: Troponin (emerg Dept Use Only); Complete Time: : ma07/04 00:08 Order name: XRAY Chest (1 view) mt2 07/04 00:08 Order name: EKG; Complete Time: 00:09 ma2 07/04 00:08 Order name: Cardiac monitoring; Complete Time: : ma07/04 00:08 Order name: EKG - Nurse/Tech; Complete Time: : ma07/04 00:08 Order name: IV Saline Lock; Complete Time: 01: ma07/04 00:53 Order name: Manual Differential [facility] 07/04 00:08 Order name: Labs collected and sent; Complete Time: :07/04 00:08 Order name: O2 Per Protocol; Complete Time: : ma07/04 00:08 Order name: O2 Sat Monitoring; Complete Time: 01:09 ma2 Administered Medications: 00:35 Drug: Albuterol - atroVENT (3:1) (2.5 mg - 0.5 mg) 3 ml {Note: started by resp fc therapist Khurram..} Route: Nebulizer; 01:00 Follow up: Response: No adverse reaction ea Disposition: 07/04/18 02:57 Discharged to Home. Impression: Disease of upper respiratory tract, unspecified. - Condition is Stable. - Discharge Instructions: How to Suction a Tracheostomy. - Medication Reconciliation Form, Thank You Letter, Antibiotic Education, Prescription Opioid Use form. - Follow up: Private Physician; When: Tomorrow; Reason: Continuance of care. Signatures: Dispatcher [employer] EDMiguel Cinserosa, RN RN Anjelica Jones RN Sujit Gillespie ea, RN RN jd3 Alzahri, Mohammad, MD MD ma2 Corrections: (The following items were deleted from the chart) 03:14 02:57 07/04/2018 02:57 Discharged to Home. Impression: Disease of upper respiratory ea tract, unspecified. Condition is Stable. Forms are Medication Reconciliation Form, Thank You Letter, Antibiotic Education, Prescription Opioid Use. Follow up: Private Physician; When: Tomorrow; Reason: Continuance of care. ma2
--- NOTE | 2018-07-04 02:58 | ER ---
Nurse's Notes [facility] Name: Akin Pugh Age: 48 yrs Sex: Male : 1970 Arrival Date: 07/03/2018 Time: 23:46 Bed 4 Private MD: Chandrakant Thompson Diagnosis: Disease of upper respiratory tract, unspecified Presentation: 07/04 00:02 Presenting complaint: Patient states: "I still feel like I have something in my trache jd3 obstructing making me short of breath. last time they had to use a scope to find it. If possible I would want them to use the scope to find the problem again. I am also still hurting from the chest tube that was placed awhile ago.". Transition of care: patient was not received from another setting of care. Onset of symptoms was July 02, 2018. Risk Assessment: Do you want to hurt yourself or someone else? Patient reports no desire to harm self or others. Initial Sepsis Screen: Does the patient meet any 2 criteria? No. Patient's initial sepsis screen is negative. Does the patient have a suspected source of infection? No. Patient's initial sepsis screen is negative. Care prior to arrival: None. 00:02 Method Of Arrival: Wheelchair jd3 00:02 Acuity: PAO 3 jd3 Historical: - Allergies: 00:06 Iodine; jd3 00:06 Iodinated Contrast Media - IV Dye; jd3 00:06 Levaquin; jd3 00:06 Ampicillin; jd3 - Home Meds: 00:06 Levoxyl Oral [Active]; escitalopram oxalate Oral [Active]; jd3 - PMHx: 00:06 Asthma; COPD; THROAT CA; jd3 - PSHx: 00:06 Appendectomy; trach x2; chest tube; jd3 - Immunization history:: Adult Immunizations up to date. - Social history:: Smoking status: Patient/guardian denies using tobacco, but has a distant history of tobacco abuse, Patient/guardian denies using alcohol, street drugs, The patient lives with family. - Ebola Screening: : Patient negative for fever greater than or equal to 101.5 degrees Fahrenheit, and additional compatible Ebola Virus Disease symptoms. - Family history:: not pertinent. Screenin:07 Abuse screen: Denies threats or abuse. Nutritional screening: No deficits noted. jd3 Tuberculosis screening: No symptoms or risk factors identified. Fall Risk Ambulatory Aid- Crutches/Cane/Walker (15 pts). Gait- Weak (10 pts.). Mental Status- Oriented to own ability (0 pts). Total Rivera Fall Scale indicates Low Risk Score (25-44 pts). Fall prevention measures have been instituted. Side Rails Up X 2 Placed close to Nursing Station Frequent Obs/Assesments occuring Family Present and informed to notify staff if they need to leave bedside. Assessment: 00:40 General: Appears uncomfortable, Behavior is appropriate for age. Pain: Denies pain. ea Neuro: Level of Consciousness is awake, alert, obeys commands, Oriented to person, place, time, situation. Cardiovascular: Patient's skin is warm and dry. Rhythm is sinus arrythmia. Respiratory: Airway via trache Respiratory effort is even, labored, Respiratory pattern is tachypnea Breath sounds are coarse bilaterally. Respiratory: Parent/caregiver reports the patient having shortness of breath labored breathing. GI: Abdomen is non-distended. Derm: Skin is pink, warm \\T\\ dry. 01:30 Reassessment: Patient and/or family updated on plan of care and expected duration. Pain ea level reassessed. Patient is alert, oriented x 3, equal unlabored respirations, skin warm/dry/pink. 02:09 Reassessment: Patient and/or family updated on plan of care and expected duration. Pain ea level reassessed. Patient is alert, oriented x 3, equal unlabored respirations, skin warm/dry/pink. Pt notified of EENT Dr. Pardo coming in tonight to see him. 02:24 Reassessment: Patient and/or family updated on plan of care and expected duration. Pain ea level reassessed. Patient is alert, oriented x 3, equal unlabored respirations, skin warm/dry/pink. Dr. Pardo at bedside. 03:10 Reassessment: Patient and/or family updated on plan of care and expected duration. Pain ea level reassessed. Patient is alert, oriented x 3, equal unlabored respirations, skin warm/dry/pink. Discharge instruction given to patient, verbalized the understanding of instruction Patient states symptoms have improved. Vital Signs: 00:06 BP 122 / 83; Pulse 110; Resp 22 S; Temp 98.1(A); Pulse Ox 97% on R/A; Weight 83.91 kg jd3 (R); Height 6 ft. 0 in. (182.88 cm) (R); Pain 10/10; 01:00 BP 128 / 85; Pulse 119; Resp 20; Temp 99.7(O); Pulse Ox 95% ; ea 02:00 BP 103 / 74; Pulse 114; Resp 21; Pulse Ox 94% ; ea 03:00 BP 116 / 66; Pulse 90; Resp 20; Temp 98.9(O); Pulse Ox 100% ; ea 00:06 Body Mass Index 25.09 (83.91 kg, 182.88 cm) jd3 ED Course: 07/03 23:46 Patient arrived in ED. am2 23:46 Chandrakant Thompson MD is Private Physician. am2 04 00:05 Triage completed. jd3 00:07 Sara Jeronimo MD is Attending Physician. ma2 00:07 Arm band placed on. jd3 00:07 Patient has correct armband on for positive identification. Bed in low position. Call j light in reach. Side rails up X 1. Adult w/ patient. 00:14 Anjelica Rangel RN is Primary Nurse. ea 00:37 X-ray completed. Portable x-ray completed in exam room. Patient tolerated procedure kw well. 00:39 XRAY Chest (1 view) In Process Unspecified. EDWI 02:58 No provider procedures requiring assistance completed. ea 03:00 IV discontinued, intact, bleeding controlled, No redness/swelling at site. Pressure ea dressing applied. Administered Medications: 00:35 Drug: Albuterol - atroVENT (3:1) (2.5 mg - 0.5 mg) 3 ml {Note: started by resp therapist Khurram..} Route: Nebulizer; 01:00 Follow up: Response: No adverse reaction ea Outcome: 02:57 Discharge ordered by . ma2 03:11 Discharged to home ambulatory, with family. ea 03:11 Condition: improved 03:11 Discharge instructions given to patient, Instructed on discharge instructions, follow up and referral plans. Demonstrated understanding of instructions, follow-up care. 03:14 Patient left the ED. ea Signatures: Dispatcher [employer] EDWI Megan Alexis RN RN Samantha Mann Amanda am2 Anjelica Rangel RN RN Sujit Steel RN RN jd3 Sara Jeronimo MD MD ma2
[2018-07-04 03:22] VITALS: BP 116/66; TEMP 98.9; O2SAT 100
--- NOTE | 2018-07-04 08:12 | RAD REPORT ---
EXAM DESCRIPTION: [place] Single View07/04/2018 12:40 am CLINICAL HISTORY: Shortness of breath COMPARISON: June 26, 2018 FINDINGS: Mild bilateral interstitial lung opacities within the bases appear unchanged. Upper lobes are clear. The heart is normal size. Tracheostomy tube remains in place
--- NOTE | 2018-07-06 12:52 | CON ---
Date of Consultation: 07/04/2018 Time Of Service: 2 a.m. Reason For Consultation: Airway obstruction. History Of Present Illness: Akin Pugh is a 48-year-old male, well known to me from the outpatient clinic. He has a history of laryngeal cancer, status post chemo-radiation in 2018 with clinical sign s of recurrence and underwent revision tracheostomy with Dr. Cameron at [facility] in [place] on May 30 and pending total laryngectomy on July 14. The patient presented to the emergency room [facility] and was complaining of shortness of breath and difficulty breathing. A chest x-ray was performed , which was unremarkable and due to the patient's recent ER visit and admission for tracheitis and tr acheal obstruction, ENT consultation was requested. Past Medical History: Laryngeal cancer, hypertension, depression, and anxiety. Past Surgical History: Tracheostomy x2. Allergies: LEVAQUIN, AMPICILLIN, IODINE. Medications: Lexapro and levothyroxine. Physical Examination: The patient is in mild distress with difficulty breathing, but there is no obvious stridor or stertor . He has 6 cuffless Shiley tracheostomy tube in place with Velcro ties. The inner cannula was remov ed and inspected, and appears clean without crusting. It is replaced and a decision is made due to p revious findings last night to perform a bedside tracheoscopy and bronchoscopy via existing trach. T he flexible bronchoscope was brought to the bedside and passed through the tracheostomy tube. There is a large crust within the trachea, which is approximately 1.5 cm and appears to be blocking about 8 0% of the patient's trachea. The bronchoscope is removed and aggressive suctioning is performed, but the cuffs cannot be dislodged. A bronchoscopic grasper is obtained and passed under flexible bronch oscope visualization, but the available scope does not have a working channel and the grasper cannot be directed as desired toward the crust. Attempts for this are then abandoned. Using the bronchosco pe and the flexible suction, the crust is mobilized off the tracheal wall, but will not adhere to the suction tip due to the dryness and stiffness of material. After several attempts, the bronchoscope and flexible scope are removed. After a very forceful cough, the crust is expelled by the patient an d a flexible bronchoscopy after this cough shows the trachea to be clear with no further crusting. T he patient's subjective shortness of breath is relieved. Assessment: Tracheal obstruction, acute tracheitis, tracheostomy status, laryngeal cancer, pending t otal laryngectomy. Plan: Bronchoscopy and tracheoscopy via existing tracheotomy with removal of foreign body performed at the bedside tonight. After removal, the patient desires to be discharged home. He is instructed to use normal saline as a nebulizer 3-4 times a day at home. He has a nebulizer and appropriate equi pment for this. The goal is to avoid drying of the secretions and prevent further airway obstruction . He is instructed to return to the emergency room as needed for recurrence of his symptoms. MICHELLE Voice ID: [id number] Report ID: [id number]
== END 2018-07-04 03:14 | disposition home or self-care (01) ==
LOC: ER 23:44
PROC: 0BC18ZZ Extirpation of Matter from Trachea, Via Natural or Artificial Opening Endoscopic (ICD-10-PCS; principal; 2018-07-04)
DX: R06.02 Shortness of breath (principal); C32.9 Malignant neoplasm of larynx, unspecified; Z92.3 Personal history of irradiation; I10 Essential (primary) hypertension; F32.9 Major depressive disorder, single episode, unspecified; F41.9 Anxiety disorder, unspecified; Z88.1 Allergy status to other antibiotic agents; Z88.0 Allergy status to penicillin; Z88.8 Allergy status to other drugs, medicaments and biological substances
CPT/HCPCS: 36415; 71045; 80048; 80076; 83735; 83880; 84484; 85025; 85610; 93005; 94640; 99284

== ENCOUNTER 2018-08-07 14:02 | Emergency (ER) | payer SELFPAY ==
--- OUTSIDE RECORDS SUMMARY | 2018-08-07 14:15 | XMS REPORT ---
[...] Dosage System Date Date BuPROPion HCl [facility] 34196424701 150 MG Orally Dec 16, Active 1 tablet ER (Smoking Once a day 2018 in the Det) morning Xanax [facility] 48638252087 1 MG Orally Active 1 tablet Once a day Zofran ND 70614491020 8 MG Orally Active 1 tablet Twice a day PRN Hydrocodone-Ari ND 59715358263 10-325 MG Active 1 tablet taminophen Orally every 6 as needed hrs Citalopram ND 53713326513 20 MG Orally Inactive 1 tablet Hydrobromide Once a day Results No Known Results Summary Purpose eClinicalWorks Submission
--- OUTSIDE RECORDS SUMMARY | 2018-08-07 14:15 | XMS REPORT ---
[...] End Status Dosage System Date Date Hydrocodone-Acet [facility] 83196960468 10-325 MG Active 1 tablet aminophen Orally every 6 as needed hrs Citalopram [facility] 21240126083 20 MG Orally Active 1 tablet Hydrobromide Once a day Xanax [facility] [address]-77 1 MG Orally Active 1 tablet Once a day Zofran [facility] [address]-67 8 MG Orally Active 1 tablet Twice a day PRN Results No Known Results Summary Purpose eClinicalWorks Submission
--- OUTSIDE RECORDS SUMMARY | 2018-08-07 14:16 | XMS REPORT ---
:1970 [facility] Address [address] [place] [address] Dr. Topete [address] [place] [id number] Care Team Providers Name Role Phone Unavailable Unavailable Unavailable Problems This patient has no known problems. Allergies, Adverse Reactions, Alerts This patient has no known allergies or adverse reactions. Medications This patient has no known medications.
--- OUTSIDE RECORDS SUMMARY | 2018-08-07 14:16 | XMS REPORT ---
[...] Status Dosage System Date Date BuPROPion HCl [facility] 32643606767 150 MG Orally Dec 16, Active 1 tablet ER (Smoking Once a day 2018 in the Det) morning Xanax [facility] 67210856731 1 MG Orally Once Active 1 tablet a day Zofran ND 47298000312 8 MG Orally Active 1 tablet Twice a day PRN Hydrocodone-Ac ND 88355401857 10-325 MG Orally Active 1 tablet etaminophen every 6 hrs as needed Results No Known Results Summary Purpose eClinicalWorks Submission
--- NOTE | 2018-08-07 15:57 | RAD REPORT ---
EXAM DESCRIPTION: CT - Abdomen Pelvis Wo Contrast - 08/07/2018 3:47 pm CLINICAL HISTORY: Abdominal pain. Raiza-PEG tube tenderness;Abd pain COMPARISON: <Comparisons> TECHNIQUE: CT imaging of the abdomen and pelvis was performed without contrast. Solid organ, bowel a nd vascular assessment is limited due to lack of IV and oral contrast. All CT scans are performed using dose optimization technique as appropriate and may include automated exposure control or mA/KV adjustment according to patient size. FINDINGS: The lower lung ritter are clear.Gastrostomy tube noted without abnormality seen along the course of the tube. The liver, spleen, pancreas, adrenal glands are within normal limits for a limited non-contrast exami nation.Punctate bilateral nephrolithiasis without hydronephrosis. No bowel obstruction, free air, free fluid or abscess. There is significant fecal retention in the co jayleen. The appendix is not identified as a discrete structure, however, no secondary findings of append icitis are identified. The osseous structures are within normal limits. IMPRESSION: No acute intra-abdominal or pelvic findings. Prominent fecal retention in the colon. A limited non-contrast examination was performed as detailed.
--- NOTE | 2018-08-07 15:59 | RAD REPORT ---
EXAM DESCRIPTION: US - Extremity Nonvascular Limited - 08/07/2018 3:36 pm CLINICAL HISTORY: Post op wound;Pain COMPARISON: Pulmonary Perf Quant Diff dated 10/13/2017 TECHNIQUE: Real-time sonographic evaluation of the area of interest was performed. FINDINGS: Small hypoechoic subcutaneous lesion is present in the area of interest measuring 5 x 5 mm . This may represent scar tissue or a small amount of residual subcutaneous fluid.
[2018-08-07 16:15] LABS: Absolute Lymphocytes (CBC) 0.7 K/uL (0.7-4.9); Absolute Monocytes 0.8 K/uL (0.1-1.3); Absolute Neutrophil 7.3 K/uL (1.8-8.0); Basophils % 0.6 % (0-1.3); Eosinophils % 1.8 % (0-4.4); Hematocrit 35.8 % (39.6-49.0); Lymphocytes % 7.6 % (15.3-44.8); MPV 8.2 fL (7.6-11.3); RBC Red Blood Cell Count 4.02 M/uL (4.33-5.43)
[2018-08-07] MEDS ORDERED: ONDANSETRON 4 MG/2 ML VIAL ONE (16:20)
[2018-08-07] MEDS ORDERED: MORPHINE 4 MG/ML SYR ONE (16:20)
[2018-08-07 16:33] LABS: Urine Blood TRACE (NEG); Urine Glucose NEGATIVE (NEG); Urine Protein NEGATIVE (NEG); Urine pH 6.5 (5.0-7.0)
[2018-08-07 16:40] LABS: BUN Blood Urea Nitrogen 10 mg/dL (7-18); Bicarbonate 26 mmol/L (21-32); Glucose Level 121 mg/dL (74-106); Potassium 3.3 mmol/L (3.5-5.1); Sodium Level 142 mmol/L (136-145)
--- NOTE | 2018-08-07 17:18 | EDPHYS ---
Physician Documentation [facility] Name: Akin Pugh Age: 48 yrs Sex: Male : 1970 Arrival Date: 08/07/2018 Time: 14:03 Bed 4 Private MD: Chandrakant Thompson ED Physician Eligio Gilbert Historical: - Allergies: 08/07 14:13 Ampicillin; hj 14:13 Iodinated Contrast Media - IV Dye; hj 14:13 Iodine; hj 14:13 Levaquin; hj - PMHx: 14:13 Asthma; COPD; THROAT CA; hj - PSHx: 14:13 Appendectomy; trach x2; chest tube; laryngectomy; hj - Immunization history:: Adult Immunizations up to date. - Social history:: Smoking status: Patient/guardian denies using tobacco. - Ebola Screening: : No symptoms or risks identified at this time. Vital Signs: 14:13 BP 140 / 83; Pulse 94; Resp 20; Temp 98.7(TE); Pulse Ox 99% on R/A; Weight 86.18 kg; hj Height 6 ft. 0 in. (182.88 cm); Pain 10/10; 15:00 BP 123 / 77; Pulse 91; Resp 17; Pulse Ox 99% on R/A; hb 16:00 BP 119 / 77; Pulse 93; Resp 18; Pulse Ox 98% on R/A; Pain 10/10; hb 14:13 Body Mass Index 25.77 (86.18 kg, 182.88 cm) hj MDM: 17:18 Patient medically screened. kdr 08/07 15:14 Order name: CBC with Diff; Complete Time: 17:11 kdr 08/07 15:14 Order name: Chem 7; Complete Time: 17:11 kdr 08/07 15:14 Order name: Blood Culture Adult (2) kdr 08/07 15:14 Order name: US Extrmty Nonvasular Limited; Complete Time: 17:11 kdr 08/07 16:20 Order name: Urine Dipstick--Ancillary (enter results); Complete Time: 17:11 eb 08/07 15:27 Order name: Abdomen ; Complete Time: 17:11 EDMS Administered Medications: 16:11 Drug: morphine 4 mg Route: IVP; Site: right hand; hb 16:40 Follow up: Response: No adverse reaction; Pain is decreased ph 16:11 Drug: Zofran 4 mg Route: IVP; Site: right hand; hb 16:40 Follow up: Response: No adverse reaction ph 17:26 Drug: [place] 10 mg-325 mg 1 tabs Route: PO; ph 17:40 Follow up: Response: No adverse reaction; Medication administered at discharge. ph Disposition: 08/07/18 17:18 Discharged to Home. Impression: Abdominal and pelvic pain, Right thigh incisional pain. - Condition is Stable. - Discharge Instructions: Abdominal Pain, Adult, [id number]. - Prescriptions for Tylenol- Codeine #3 300-30 mg Oral Tablet - take 2 tablets by ORAL route every 6 hours As needed; 16 tablet. Miralax 17 gram/dose Oral - take 1 packet by ORAL route once daily dilute powder in 8 ounces of water or juice; 1 box. - Medication Reconciliation Form, Thank You Letter, Prescription Opioid Use form. - Follow up: Chandrakant Thompson MD; When: 2 - 3 days; Reason: If symptoms return, Further diagnostic work-up, Recheck today's complaints, Continuance of care, Re-evaluation by your physician. - Problem is an ongoing problem. - Symptoms are unchanged. Signatures: Dispatcher [employer] [facility] Eligio Gilbert MD MD [facility] Tiny Varela RN RN Hernandez Hernandez, JEAN RN Ya Acosta, JEAN RN Corrections: (The following items were deleted from the chart) 15:27 15:15 Abdomen Pelvis W Con+CT.RAD.BRZ ordered. [facility] 17:49 17:18 08/07/2018 17:18 Discharged to Home. Impression: Abdominal and pelvic pain; Right ph thigh incisional pain. Condition is Stable. Forms are Medication Reconciliation Form, Thank You Letter, Antibiotic Education, Prescription Opioid Use. Follow up: Chandrakant Thompson; When: 2 - 3 days; Reason: If symptoms return, Further diagnostic work-up, Recheck today's complaints, Continuance of care, Re-evaluation by your physician. Problem is an ongoing problem. Symptoms are unchanged. kdr
--- NOTE | 2018-08-07 17:18 | ER ---
Nurse's Notes [facility] Name: Akin Pugh Age: 48 yrs Sex: Male : 1970 Arrival Date: 08/07/2018 Time: 14:03 Bed 4 Private MD: Chandrakant Thompson Diagnosis: Abdominal and pelvic pain;Right thigh incisional pain Presentation: 08/07 14:09 Presenting complaint: Mother states: he had a complete laryngectomy last July 14, hj D/C'd on the , with a drain on the R leg; reports fever around 100's for a week; reports pain on the feeding tube; reports cough;. Transition of care: patient was not received from another setting of care. Onset of symptoms was August 07, 2018. Risk Assessment: Do you want to hurt yourself or someone else? Patient reports no desire to harm self or others. Initial Sepsis Screen: Does the patient meet any 2 criteria? Yes Does the patient have a suspected source of infection? Yes:. 14:09 Method Of Arrival: Ambulatory hj 14:09 Acuity: PAO 3 hj Historical: - Allergies: 14:13 Ampicillin; hj 14:13 Iodinated Contrast Media - IV Dye; hj 14:13 Iodine; hj 14:13 Levaquin; hj - PMHx: 14:13 Asthma; COPD; THROAT CA; hj - PSHx: 14:13 Appendectomy; trach x2; chest tube; laryngectomy; hj - Immunization history:: Adult Immunizations up to date. - Social history:: Smoking status: Patient/guardian denies using tobacco. - Ebola Screening: : No symptoms or risks identified at this time. Screenin:45 Abuse screen: Denies threats or abuse. Denies injuries from another. Nutritional hb screening: No deficits noted. Tuberculosis screening: No symptoms or risk factors identified. Fall Risk None identified. Assessment: 14:30 General: Appears in no apparent distress. Behavior is calm, cooperative. Pain: Pain hb currently is 10 out of 10 on a pain scale. Neuro: Level of Consciousness is awake, alert, obeys commands, Oriented to person, place, time, situation. Cardiovascular: Capillary refill < 3 seconds Patient's skin is warm and dry. Respiratory: Airway via trache Respiratory effort is even, unlabored, Respiratory pattern is regular, symmetrical, Breath sounds are clear bilaterally. GI: Abdomen is non-distended, PEG tube in place, clamped. Site clean. Site reddened. Bowel sounds present X 4 quads. Abd is soft and non tender X 4 quads. Reports pain around PEG insertion site. : No signs and/or symptoms were reported regarding the genitourinary system. EENT: No signs and/or symptoms were reported regarding the EENT system. Derm: Skin is intact, is healthy with good turgor. Musculoskeletal: Reports right thigh pain r/t incision site, no bleeding or drainage noted. Vital Signs: 14:13 BP 140 / 83; Pulse 94; Resp 20; Temp 98.7(TE); Pulse Ox 99% on R/A; Weight 86.18 kg; hj Height 6 ft. 0 in. (182.88 cm); Pain 10/10; 15:00 BP 123 / 77; Pulse 91; Resp 17; Pulse Ox 99% on R/A; hb 16:00 BP 119 / 77; Pulse 93; Resp 18; Pulse Ox 98% on R/A; Pain 10/10; hb 14:13 Body Mass Index 25.77 (86.18 kg, 182.88 cm) ED Course: 14:03 Patient arrived in ED. as 14:04 Chandrakant Thompson MD is Private Physician. as 14:13 Triage completed. hj 14:15 Arm band placed on right wrist. hj 14:30 Eligio Gilbert MD is Attending Physician. kdr 14:35 Patient has correct armband on for positive identification. Placed in gown. Bed in low hb position. Call light in reach. Side rails up X 1. fagot maker on. Pulse ox on. NIBP on. 15:19 Radiology exam delayed due to lab results not completed at this time. (BUN/Creatinine) nj IV insertion attempt and/or patient not having appropriate IV at this time. 15:27 US Extrmty Nonvasular Limited In Process Unspecified. EDMS 15:48 Abdomen In Process Unspecified. EDMS 16:10 Ya Acosta, RN is Primary Nurse. hb 17:17 Chandrakant Thompson MD is Referral Physician. kdr Administered Medications: 16:11 Drug: morphine 4 mg Route: IVP; Site: right hand; hb 16:40 Follow up: Response: No adverse reaction; Pain is decreased ph 16:11 Drug: Zofran 4 mg Route: IVP; Site: right hand; hb 16:40 Follow up: Response: No adverse reaction ph 17:26 Drug: [place] 10 mg-325 mg 1 tabs Route: PO; ph 17:40 Follow up: Response: No adverse reaction; Medication administered at discharge. ph Outcome: 17:18 Discharge ordered by . cassius 17:49 Patient left the ED. ph Signatures: Dispatcher [employer] EDMS Eligio Gilbert MD MD kdr Martinez, Amelia as Hall, Patricia, RN RN Hernandez Hernandez RN RN hj Baxter, Heather, RN RN hb Jordan, Nathan nj
[2018-08-07] MEDS ORDERED: HYDROCODONE/APAP 10/325 TAB ONE (17:35)
[2018-08-07 18:29] VITALS: TEMP 98.7
[2018-08-07 18:31] VITALS: BP 119/77; O2SAT 98
== END 2018-08-07 17:49 | disposition home or self-care (01) ==
LOC: ER 14:02
DX: G89.18 Other acute postprocedural pain (principal); R10.2 Pelvic and perineal pain; J45.909 Unspecified asthma, uncomplicated; J44.9 Chronic obstructive pulmonary disease, unspecified; C14.0 Malignant neoplasm of pharynx, unspecified; Z88.1 Allergy status to other antibiotic agents; Z91.041 Radiographic dye allergy status
CPT/HCPCS: 36415; 74176; 76882; 80048; 81003; 85025; 87040; 96374; 96375; 99284; J2405

== ENCOUNTER 2018-08-29 12:23 | Inpatient (IN) | payer OTHER, SELFPAY ==
[2018-08-29] MEDS ORDERED: METHYLPREDNISOLONE 125 MG INJ ONE (13:37)
[2018-08-29] MEDS ORDERED: DIPHENHYDRAMINE 50 MG/ML VIAL ONE (13:37)
[2018-08-29] MEDS ORDERED: FAMOTIDINE 20 MG/2 ML VIAL IV ONE (13:37)
--- NOTE | 2018-08-29 13:44 | RAD REPORT ---
EXAM DESCRIPTION: RAD - Chest Single View - 08/29/2018 1:38 pm CLINICAL HISTORY: FEVER Chest pain. COMPARISON: Chest Single View dated 07/04/2018; Chest Single View dated 06/26/2018; Chest Single View d ated 06/13/2018; Chest Single View dated 10/12/2017 FINDINGS: Portable technique limits examination quality. The lungs are grossly clear. The heart is normal in size. No displaced fractures. IMPRESSION: No acute intrathoracic process suspected.
[2018-08-29 13:48] LABS: Absolute Lymphocytes (CBC) 0.7 K/uL (0.7-4.9); Absolute Monocytes 0.9 K/uL (0.1-1.3); Absolute Neutrophil 7.6 K/uL (1.8-8.0); Basophils % 0.4 % (0-1.3); Eosinophils % 1.8 % (0-4.4); Hematocrit 40.9 % (39.6-49.0); Lymphocytes % 7.7 % (15.3-44.8); MPV 8.6 fL (7.6-11.3); Monocytes % 9.7 % (3.3-12.3); RBC Red Blood Cell Count 4.58 M/uL (4.33-5.43)
[2018-08-29] MEDS ORDERED: ONDANSETRON 4 MG/2 ML VIAL ONE (13:54)
[2018-08-29] MEDS ORDERED: MORPHINE 4 MG/ML SYR ONE ×2 (13:54→15:59)
[2018-08-29 14:16] LABS: ALT/SGPT 26 U/L (12-78); AST/SGOT 10 U/L (15-37); Albumin 3.5 g/dL (3.4-5.0); Alkaline Phosphatase 100 U/L (45-117); BUN Blood Urea Nitrogen 10 mg/dL (7-18); Bicarbonate 27 mmol/L (21-32); Bilirubin Direct < 0.1 mg/dL (0-0.2); Bilirubin Total 0.4 mg/dL (0.2-1.0); Glucose Level 105 mg/dL (74-106); Potassium 3.6 mmol/L (3.5-5.1); Protein, Total 7.3 g/dL (6.4-8.2); Sodium Level 143 mmol/L (136-145)
--- OUTSIDE RECORDS SUMMARY | 2018-08-29 14:39 | XMS REPORT | Clinical Summary ---
:1970 Author Organization [facility] Address [address] [place] [address] Care Team Providers Name Role Phone Pcp, No Primary Care Provider Unavailable Allergies Active Allergy Reactions Severity Noted Date Comments Ampicillin Hives, Rash Low 07/10/2018 Iodine And Iodide Containing Products Nausea Only Medium 08/12/2018 Levofloxacin Hives, Rash Low 07/10/2018 Medications Medication Sig Dispensed Refills Start End Date Status Date escitalopram Take 10 mg by 0 Active oxalate (LEXAPRO) mouth daily. 10 MG tablet acetylcysteine 20% Take 2 mLs by 120 mL 0 06/21/19 Active (MUCOMYST) 200 nebulization 2 9 20 mg/mL (20 %) (two) times nebulizer solution daily. ipratropium-albuter Take 3 mLs by 360 mL 0 06/16/19 Active ol (DUO-NEB) 0.5 nebulization 9 20 mg-3 mg(2.5 mg every 6 (six) base)/3 mL hours for 360 nebulizer solution days. ipratropium-albuter Take 3 mLs by 120 ampule 0 06/16/19 Active ol (DUO-NEB) 0.5 nebulization 9 20 mg-3 mg(2.5 mg every 6 (six) base)/3 mL hours as needed nebulizer solution for Wheezing or Shortness of Breath for up to 360 days. HYDROcodone-acetami Take 1 tablet by 30 tablet 0 Active nophen (NORCO mouth every 6 9 7.5-325) 7.5-325 mg (six) hours as per tablet needed for Pain. Max Daily Amount: 4 tablets levothyroxine 1 tablet (150 mcg 30 tablet 0 07/25/07/25/19 Active (SYNTHROID, total) by G-tube 9 LEVOTHROID) 150 MCG route Every tablet morning on an empty stomach. sulfamethoxazole-tr Take 1 tablet (80 28 tablet 0 08/30/19 Active imethoprim mg of 9 (BACTRIM,SEPTRA) trimethoprim 400-80 mg per total) by mouth 2 tablet (two) times daily for 14 days. mupirocin Apply 1 g 22 g 0 08/30/19 Active (BACTROBAN) 2 % topically 2 (two) 9 ointment times daily for 14 days To inside of right neck wound. predniSONE Take 20 mg by 0 06/22/19 Discontinued (DELTASONE) 10 MG mouth 2 (two) 19 tablet times daily. levothyroxine Take 100 mcg by 0 07/22/19 Discontinued (SYNTHROID, mouth Every 19 LEVOTHROID) 100 MCG morning on an tablet empty stomach. HYDROcodone-acetami Take 1 tablet by 0 06/14/19 Discontinued nophen (NORCO mouth every 6 19 7.5-325) 7.5-325 mg (six) hours as per tablet needed for Pain. polyethylene glycol Take 17 g by 14 each 0 06/28/19 (GLYCOLAX) 17 gram mouth daily as 9 packet needed for up to 14 days For constipation while taking pain meds. HYDROcodone-acetami Take 1 tablet by 30 tablet 0 06/22/19 Discontinued nophen (NORCO mouth every 6 9 7.5-325) 7.5-325 mg (six) hours as per tablet needed for Pain. Max Daily Amount: 4 tablets amoxicillin-clavula Take 1 tablet by 6 tablet 0 06/22/19 Discontinued vick (AUGMENTIN) mouth 2 (two) 12 18 500-125 mg per times daily for 3 tablet days. predniSONE Take 3 tablets 9 tablet 0 06/22/19 Discontinued (DELTASONE) 5 MG (15 mg total) by 9 tablet mouth daily for 3 days. predniSONE Take 1 tablet (20 2 tablet 0 06/22/19 Discontinued (DELTASONE) 20 MG mg total) by 9 19 tablet mouth daily for 2 days. predniSONE Take 1 tablet (10 3 tablet 0 06/22/19 Discontinued (DELTASONE) 10 MG mg total) by 9 19 tablet mouth daily for 3 days. predniSONE Take 1 tablet (5 3 tablet 0 06/14/19 Discontinued (DELTASONE) 5 MG mg total) by 9 19 tablet mouth daily for 3 days. predniSONE Take 1 tablet (5 3 tablet 0 06/22/19 Discontinued (DELTASONE) 5 MG mg total) by 9 19 tablet mouth daily for 3 days. ciprofloxacin HCl Take 1 tablet 14 tablet 0 06/29/19 (CIPRO) 750 MG (750 mg total) by 19 tablet mouth 2 (two) times daily for 7 days. doxycycline Take 1 capsule 14 capsule 0 06/29/19 (MONODOX) 100 MG (100 mg total) by 9 19 capsule mouth every 12 (twelve) hours for 7 days. metroNIDAZOLE Take 1 tablet 21 tablet 0 06/29/19 (FLAGYL) 500 MG (500 mg total) by 9 19 tablet mouth every 8 (eight) hours for 7 days. docusate (COLACE) 10 mLs (100 mg 473 mL 0 07/25/19 Discontinued 50 mg/5 mL liquid total) by G-tube 9 19 route daily for 10 days. traMADol (ULTRAM) 2 tablets (100 mg 30 tablet 0 08/01/19 50 mg tablet total) by G-tube 9 19 route every 6 (six) hours as needed for Pain for up to 10 days. Max Daily Amount: 400 mg metronidazole Take 10 mLs (500 210 mL 0 07/25/19 Discontinued (FLAGYL) 50 mg/mL mg total) by 9 19 liquid mouth every 8 (eight) hours for 7 days. sulfamethoxazole-tr Take 1 tablet 14 tablet 0 08/01/19 imethoprim (BACTRIM (160 mg of 12 18 DS) 800-160 mg per trimethoprim tablet total) by mouth 2 (two) times daily for 7 days. docusate (COLACE) 10 mLs (100 mg 473 mL 0 08/04/19 50 mg/5 mL liquid total) by G-tube 9 19 route daily for 10 days. mupirocin Apply 1 g 22 g 0 08/16/19 Discontinued (BACTROBAN) 2 % topically 2 (two) 9 19 ointment times daily for 7 days To inside of right neck wound. Active Problems Problem Noted Date Neck infection 08/12/2018 S/P laryngectomy 07/15/2018 S/P percutaneous endoscopic gastrostomy (PEG) tube placement 07/15/2018 S/P right ALT flap graft 07/15/2018 Anemia of chronic disease 07/15/2018 Tracheostomy care 07/10/2018 History of laryngeal cancer 07/10/2018 Acute on chronic respiratory failure with hypoxemia 06/14/2018 Recurrent squamous cell carcinoma of larynx 06/10/2018 Leukocytosis 06/10/2018 Laryngeal mass 06/09/2018 Tracheal stenosis 06/09/2018 Presence of tracheostomy 06/09/2018 Resolved Problems Problem Noted Date Resolved Date Acute blood loss anemia 07/15/2018 08/12/2018 Shortness of breath 07/10/2018 08/12/2018 Coronavirus infection 06/16/2018 08/12/2018 SOB (shortness of breath) 06/14/2018 08/12/2018 Acute postoperative pain 06/10/2018 08/12/2018 HAP (hospital-acquired pneumonia) 08/12/2018 Hyponatremia 08/12/2018 Encounters Date Type Specialty Care Team Description 08/11/2018 - Hospital Encounter General Internal Guilherme Fraire Recurrent squamous cell carcinoma of larynx (HCC) (Primary Dx); 08/15/2018 Medicine MD Vinnie Neck infection 07/25/2018 Outside Orders Central Scheduling Jim Fernandez Tsao, MD unspecified type (Primary Dx) 07/14/2018 Anesthesia Event Kandi Garcia CRNA 07/14/2018 Surgery Guilherme Fraire LARYNGECTOMY MD Vinnie 07/10/2018 - Hospital Encounter General Internal Kash Eric Shortness of breath (Primary Dx); 07/24/2018 Katty Wright MD [facility]acheostomy care ([facility]); Guilherme Fraire History of laryngeal cancer; MD Vinnie Presence of tracheostomy (HCC); Acute postoperative pain; S/P flap graft; S/P laryngectomy; Hypoxemia requiring supplemental oxygen 07/10/2018 Travel 06/14/2018 Travel 06/13/2018 - Hospital Encounter General Internal Veronica Crowder Acute hypoxemic respiratory failure (HCC) (Primary Dx); 06/21/2018 Medicine MD David Laryngeal mass; Aster Velez Presence of tracheostomy (HCC); MD Tamir SOB (shortness of breath); Fernie Hardy MD Tracheostomy dependence (HCC); Guilherme Fraire Respiratory failure requiring intubation (HCC); MD Vinnie Pneumonia due to gram-negative bacteria (HCC); Patrica Purdy HAP (hospital-acquired pneumonia); MD Jemima Multifocal pneumonia; Pseudomonas infection; Coronavirus infection; Leukocytosis, unspecified type; Fever, unspecified; Acute on chronic respiratory failure with hypoxemia (HCC) 06/12/2018 Anesthesia Event Anjelica Nix MD 06/12/2018 Surgery Virtual, Surgeon PROCEDURE DONE OUTSIDE OR 06/09/2018 Anesthesia Event Jessica Martell CRNA 06/09/2018 Surgery Guilherme Fraire LARYNGOSCOPY,BIOPSY MD Vinnie 06/09/2018 - Hospital Encounter Cardiac Intensive Guilherme Fraire Acute postoperative pain; 06/13/2018 Care MD Vinnie Leukocytosis, unspecified type; Presence of tracheostomy (HCC); Hypoxemia; Anxiety; Pneumothorax on left 06/06/2018 Hospital Encounter Pre-Admission Resource, Oqmt Testing Preadmit Phone after 08/28/2017 Social History Tobacco Use Types Packs/Day Years Used Date Current Some Day Smoker Smokeless Tobacco: Never Used Comments: Occasionally Alcohol Use Drinks/Week oz/Week Comments No Alcohol Habits Answer Date Recorded How often do you have a drink containing alcohol? Never 06/06/2018 How many drinks containing alcohol do you have on a typical Not asked day when you are drinking? How often do you have six or more drinks on one occasion? Not asked Sex Assigned at Date Recorded Not on file Job Start Date Occupation Industry Not on file Not on file Not on file Travel History Travel Start Travel End No recent travel history available. Last Filed Vital Signs Vital Sign Reading Time Taken Blood Pressure 140/73 08/15/2018 8:58 AM CDT Pulse 64 08/15/2018 9:38 AM CDT Temperature 36.2 C (97.1 F) 08/15/2018 8:58 AM CDT Respiratory Rate 18 08/15/2018 9:38 AM CDT Oxygen Saturation 96% 08/15/2018 9:38 AM CDT Inhaled Oxygen Concentration 25% 07/23/2018 12:29 PM CDT Weight 89.4 kg (197 lb 1.5 oz) 07/22/2018 5:53 AM CDT Height 182.9 cm (6') 07/10/2018 9:22 AM CDT Body Mass Index 26.73 07/22/2018 5:53 AM CDT Plan of Treatment Not on file Procedures Procedure Name Priority Date/Time Associated Comments Diagnosis CREATININE Routine 08/15/2018 7:02 Results for this AM CDT procedure are in the results section. VANCOMYCIN LEVEL, Timed 08/13/2018 10:59 Results for this TROUGH PM CDT procedure are in the results section. XR ESOPH SWALLOW Routine 08/12/2018 3:30 Results for this FUNCTION W/CINE VIDEO PM CDT procedure are in the results section. CBC W/PLT COUNT & AUTO Routine 08/12/2018 3:58 Results for this DIFFERENTIAL AM CDT procedure are in the results section. CBC W/PLT COUNT & AUTO Routine 08/12/2018 3:58 Results for this DIFFERENTIAL AM CDT procedure are in the results section. CBC W/PLT COUNT & AUTO Routine 08/11/2018 4:59 Results for this DIFFERENTIAL PM CDT procedure are in the results section. TSH/FREE T4 IF Routine 08/11/2018 4:59 Results for this INDICATED PM CDT procedure are in the results section. CBC W/PLT COUNT & AUTO Routine 08/11/2018 4:59 Results for this DIFFERENTIAL PM CDT procedure are in the results section. WOUND CULTURE + GRAM Routine 08/11/2018 4:01 Results for this STAIN PM CDT procedure are in the results section. INTRAOPERATIVE PATH 08/06/2018 5:45 REPORT - SCAN PM CDT INTRAOPERATIVE PATH 08/06/2018 5:45 REPORT - SCAN PM CDT RHYTHM STRIP - SCAN 07/28/2018 10:30 AM CDT (CELLAVISION MANUAL Routine 07/24/2018 4:17 Results for this DIFF) AM CDT procedure are in the results section. CBC W/PLT COUNT & AUTO Routine 07/24/2018 4:17 Results for this DIFFERENTIAL AM CDT procedure are in the results section. PHOSPHORUS Routine 07/24/2018 4:17 Results for this AM CDT procedure are in the results section. MAGNESIUM Routine 07/24/2018 4:17 Results for this AM CDT procedure are in the results section. CBC W/PLT COUNT & AUTO Routine 07/24/2018 4:17 Results for this DIFFERENTIAL AM CDT procedure are in the results section. BASIC METABOLIC PANEL Routine 07/24/2018 4:17 Results for this (7) AM CDT procedure are in the results section. (CELLAVISION MANUAL Routine 07/23/2018 5:11 Results for this DIFF) AM CDT procedure are in the results section. CBC W/PLT COUNT & AUTO Routine 07/23/2018 5:11 Results for this DIFFERENTIAL AM CDT procedure are in the results section. PHOSPHORUS Routine 07/23/2018 5:11 Results for this AM CDT procedure are in the results section. MAGNESIUM Routine 07/23/2018 5:11 Results for this AM CDT procedure are in the results section. CBC W/PLT COUNT & AUTO Routine 07/23/2018 5:11 Results for this DIFFERENTIAL AM CDT procedure are in the results section. BASIC METABOLIC PANEL Routine 07/23/2018 5:11 Results for this (7) AM CDT procedure are in the results section. VANCOMYCIN LEVEL, Timed 07/22/2018 9:51 Results for this TROUGH PM CDT procedure are in the results section. POCT-GLUCOSE METER Routine 07/22/2018 5:52 Results for this PM CDT procedure are in the results section. POCT-GLUCOSE METER Routine 07/22/2018 12:31 Results for this PM CDT procedure are in the results section. (CELLAVISION MANUAL Routine 07/22/2018 5:40 Results for this DIFF) AM CDT procedure are in the results section. CBC W/PLT COUNT & AUTO Routine 07/22/2018 5:40 Results for this DIFFERENTIAL AM CDT procedure are in the results section. PHOSPHORUS Routine 07/22/2018 5:40 Results for this AM CDT procedure are in the results section. MAGNESIUM Routine 07/22/2018 5:40 Results for this AM CDT procedure are in the results section. CBC W/PLT COUNT & AUTO Routine 07/22/2018 5:40 Results for this DIFFERENTIAL AM CDT procedure are in the results section. BASIC METABOLIC PANEL Routine 07/22/2018 5:40 Results for this (7) AM CDT procedure are in the results section. (CELLAVISION MANUAL Routine 07/21/2018 4:56 Results for this DIFF) AM CDT procedure are in the results section. CBC W/PLT COUNT & AUTO Routine 07/21/2018 4:56 Results for this DIFFERENTIAL AM CDT procedure are in the results section. PHOSPHORUS Routine 07/21/2018 4:56 Results for this AM CDT procedure are in the results section. MAGNESIUM Routine 07/21/2018 4:56 Results for this AM CDT procedure are in the results section. CBC W/PLT COUNT & AUTO Routine 07/21/2018 4:56 Results for this DIFFERENTIAL AM CDT procedure are in the results section. BASIC METABOLIC PANEL Routine 07/21/2018 4:56 Results for this (7) AM CDT procedure are in the results section. VANCOMYCIN LEVEL, Timed 07/20/2018 11:11 Results for this TROUGH PM CDT procedure are in the results section. SPUTUM CULTURE + GRAM KENIA 07/20/2018 12:20 Results for this STAIN PM CDT procedure are in the results section. (CELLAVISION MANUAL Routine 07/20/2018 4:58 Results for this DIFF) AM CDT procedure are in the results section. CBC W/PLT COUNT & AUTO Routine 07/20/2018 4:58 Results for this DIFFERENTIAL AM CDT procedure are in the results section. PT/APTT Routine 07/20/2018 4:58 Results for this AM CDT procedure are in the results section. PHOSPHORUS Routine 07/20/2018 4:58 Results for this AM CDT procedure are in the results section. MAGNESIUM Routine 07/20/2018 4:58 Results for this AM CDT procedure are in the results section. CBC W/PLT COUNT & AUTO Routine 07/20/2018 4:58 Results for this DIFFERENTIAL AM CDT procedure are in the results section. BASIC METABOLIC PANEL Routine 07/20/2018 4:58 Results for this (7) AM CDT procedure are in the results section. XR CHEST 1 VIEW Routine 07/19/2018 12:17 Results for this PORTABLE/BEDSIDE PM CDT procedure are in the results section. URINALYSIS W/ REFLEX Routine 07/19/2018 10:37 Results for this URINE CULTURE AM CDT procedure are in the results section. URINE CULTURE Routine 07/19/2018 10:37 Results for this AM CDT procedure are in the results section. SPUTUM CULTURE + GRAM Routine 07/19/2018 8:50 Results for this STAIN AM CDT procedure are in the results section. POCT-GLUCOSE METER Routine 07/19/2018 6:02 Results for this AM CDT procedure are in the results section. CBC W/PLT COUNT & AUTO Routine 07/19/2018 3:37 Results for this DIFFERENTIAL AM CDT procedure are in the results section. PT/APTT Routine 07/19/2018 3:37 Results for this AM CDT procedure are in the results section. PHOSPHORUS Routine 07/19/2018 3:37 Results for this AM CDT procedure are in the results section. MAGNESIUM Routine 07/19/2018 3:37 Results for this AM CDT procedure are in the results section. CBC W/PLT COUNT & AUTO Routine 07/19/2018 3:37 Results for this DIFFERENTIAL AM CDT procedure are in the results section. BASIC METABOLIC PANEL Routine 07/19/2018 3:37 Results for this (7) AM CDT procedure are in the results section. POCT-GLUCOSE METER Routine 07/19/2018 12:03 Results for this AM CDT procedure are in the results section. POCT-GLUCOSE METER Routine 07/18/2018 5:50 Results for this PM CDT procedure are in the results section. POCT-GLUCOSE METER Routine 07/18/2018 11:30 Results for this AM CDT procedure are in the results section. T4, FREE Routine 07/18/2018 9:30 Results for this AM CDT procedure are in the results section. TSH/FREE T4 IF Routine 07/18/2018 9:30 Results for this INDICATED AM CDT procedure are in the results section. POCT-GLUCOSE METER Routine 07/18/2018 6:40 Results for this AM CDT procedure are in the results section. CBC W/PLT COUNT & AUTO Routine 07/18/2018 4:15 Results for this DIFFERENTIAL AM CDT procedure are in the results section. PT/APTT Routine 07/18/2018 4:15 Results for this AM CDT procedure are in the results section. PHOSPHORUS Routine 07/18/2018 4:15 Results for this AM CDT procedure are in the results section. MAGNESIUM Routine 07/18/2018 4:15 Results for this AM CDT procedure are in the results section. CBC W/PLT COUNT & AUTO Routine 07/18/2018 4:15 Results for this DIFFERENTIAL AM CDT procedure are in the results section. BASIC METABOLIC PANEL Routine 07/18/2018 4:15 Results for this (7) AM CDT procedure are in the results section. POCT-GLUCOSE METER Routine 07/17/2018 5:56 Results for this AM CDT procedure are in the results section. (CELLAVISION MANUAL Routine 07/17/2018 3:49 Results for this DIFF) AM CDT procedure are in the results section. CBC W/PLT COUNT & AUTO Routine 07/17/2018 3:49 Results for this DIFFERENTIAL AM CDT procedure are in the results section. PT/APTT Routine 07/17/2018 3:49 Results for this AM CDT procedure are in the results section. PHOSPHORUS Routine 07/17/2018 3:49 Results for this AM CDT procedure are in the results section. MAGNESIUM Routine 07/17/2018 3:49 Results for this AM CDT procedure are in the results section. CBC W/PLT COUNT & AUTO Routine 07/17/2018 3:49 Results for this DIFFERENTIAL AM CDT procedure are in the results section. BASIC METABOLIC PANEL Routine 07/17/2018 3:49 Results for this (7) AM CDT procedure are in the results section. ALBUMIN Routine 07/17/2018 3:49 Results for this AM CDT procedure are in the results section. XR CHEST 1 VIEW Routine 07/17/2018 3:29 Results for this PORTABLE/BEDSIDE AM CDT procedure are in the results section. POCT-GLUCOSE METER Routine 07/17/2018 12:47 Results for this AM CDT procedure are in the results section. POCT-GLUCOSE METER Routine 07/16/2018 6:08 Results for this PM CDT procedure are in the results section. POCT-GLUCOSE METER Routine 07/16/2018 1:07 Results for this PM CDT procedure are in the results section. ECG 12-LEAD Routine 07/16/2018 8:41 Results for this AM CDT procedure are in the results section. BLOOD GAS, ARTERIAL STAT 07/16/2018 7:32 Results for this AM CDT procedure are in the results section. TROPONIN I STAT 07/16/2018 7:32 Results for this AM CDT procedure are in the results section. XR CHEST 1 VIEW Routine 07/16/2018 6:09 Results for this PORTABLE/BEDSIDE AM CDT procedure are in the results section. POCT-GLUCOSE METER Routine 07/16/2018 6:00 Results for this AM CDT procedure are in the results section. CBC W/PLT COUNT & AUTO Routine 07/16/2018 3:04 Results for this DIFFERENTIAL AM CDT procedure are in the results section. CBC W/PLT COUNT & AUTO Routine 07/16/2018 3:04 Results for this DIFFERENTIAL AM CDT procedure are in the results section. PT/APTT Routine 07/16/2018 2:55 Results for this AM CDT procedure are in the results section. PHOSPHORUS Routine 07/16/2018 2:55 Results for this AM CDT procedure are in the results section. MAGNESIUM Routine 07/16/2018 2:55 Results for this AM CDT procedure are in the results section. BASIC METABOLIC PANEL Routine 07/16/2018 2:55 Results for this (7) AM CDT procedure are in the results section. ALBUMIN Routine 07/16/2018 2:55 Results for this AM CDT procedure are in the results section. POCT-GLUCOSE METER Routine 07/15/2018 11:38 Results for this PM CDT procedure are in the results section. POCT-GLUCOSE METER Routine 07/15/2018 6:24 Results for this PM CDT procedure are in the results section. TRANSFUSION SERVICE 07/15/2018 6:08 REPORT - SCAN PM CDT INTRAOPERATIVE PATH 07/15/2018 1:10 REPORT - SCAN PM CDT INTRAOPERATIVE PATH 07/15/2018 1:10 REPORT - SCAN PM CDT T4, FREE Routine 07/15/2018 11:47 Results for this AM CDT procedure are in the results section. POCT-GLUCOSE METER Routine 07/15/2018 11:29 Results for this AM CDT procedure are in the results section. POCT-GLUCOSE METER Routine 07/15/2018 5:34 Results for this AM CDT procedure are in the results section. XR CHEST 1 VIEW Routine 07/15/2018 5:22 Results for this PORTABLE/BEDSIDE AM CDT procedure are in the results section. (CELLAVISION MANUAL Routine 07/15/2018 3:43 Results for this DIFF) AM CDT procedure are in the results section. CBC W/PLT COUNT & AUTO Routine 07/15/2018 3:43 Results for this DIFFERENTIAL AM CDT procedure are in the results section. PT/APTT Routine 07/15/2018 3:43 Results for this AM CDT procedure are in the results section. PHOSPHORUS Routine 07/15/2018 3:43 Results for this AM CDT procedure are in the results section. MAGNESIUM Routine 07/15/2018 3:43 Results for this AM CDT procedure are in the results section. CBC W/PLT COUNT & AUTO Routine 07/15/2018 3:43 Results for this DIFFERENTIAL AM CDT procedure are in the results section. BASIC METABOLIC PANEL Routine 07/15/2018 3:43 Results for this (7) AM CDT procedure are in the results section. ALBUMIN Routine 07/15/2018 3:43 Results for this AM CDT procedure are in the results section. POCT-GLUCOSE METER Routine 07/14/2018 11:50 Results for this PM CDT procedure are in the results section. CBC W/PLT COUNT & AUTO Routine 07/14/2018 6:48 Results for this DIFFERENTIAL PM CDT procedure are in the results section. TSH Routine 07/14/2018 6:48 Results for this PM CDT procedure are in the results section. PTH, INTACT Routine 07/14/2018 6:48 Results for this PM CDT procedure are in the results section. PREALBUMIN Routine 07/14/2018 6:48 Results for this PM CDT procedure are in the results section. PHOSPHORUS Routine 07/14/2018 6:48 Results for this PM CDT procedure are in the results section. MAGNESIUM Routine 07/14/2018 6:48 Results for this PM CDT procedure are in the results section. CBC W/PLT COUNT & AUTO Routine 07/14/2018 6:48 Results for this DIFFERENTIAL PM CDT procedure are in the results section. BASIC METABOLIC PANEL Routine 07/14/2018 6:48 Results for this (7) PM CDT procedure are in the results section. ALBUMIN Routine 07/14/2018 6:48 Results for this PM CDT procedure are in the results section. HGB/HCT (H&H) - STAT Routine 07/14/2018 3:01 Results for this LAB PM CDT procedure are in the results section. GLUCOSE-STAT LAB Routine 07/14/2018 3:01 Results for this PM CDT procedure are in the results section. POTASSIUM-STAT LAB Routine 07/14/2018 3:01 Results for this PM CDT procedure are in the results section. SODIUM NA-STAT LAB Routine 07/14/2018 3:01 Results for this PM CDT procedure are in the results section. BLOOD GAS, ARTERIAL Routine 07/14/2018 3:01 Results for this PM CDT procedure are in the results section. RRL CRITICAL LABS Routine 07/14/2018 3:01 Results for this (ABG,NA,K,H&H,GLUCOSE) PM CDT procedure are in the results section. ABORH, MANUAL STAT 07/14/2018 10:34 Results for this AM CDT procedure are in the results section. TISSUE EXAM AP Routine 07/14/2018 10:23 Results for this AM CDT procedure are in the results section. TYPE AND SCREEN, STAT 07/14/2018 10:18 Results for this AUTOMATED AM CDT procedure are in the results section. FLAP,MICROVASCULAR 07/14/2018 8:00 Larynx carcinoma FREE-LOWER EXTREMITY AM CDT (HCC) Case Notes 5.5 HRS FOR LIOU5.5 HRS FOR FERNANDEZ Special Needs (ICU BED NEEDED) DISSECTION,NECK SELECTIVE 07/14/2018 8:00 AM CDT Larynx carcinoma (HCC) Case Notes 5.5 HRS FOR LIOU5.5 HRS FOR FERNANDEZ Special Needs (ICU BED NEEDED) LARYNGECTOMY 07/14/2018 8:00 AM CDT Larynx carcinoma (HCC) Case Notes 5.5 HRS FOR LIOU5.5 HRS FOR FERNANDEZ Special Needs (ICU BED NEEDED) IR GASTROSTOMY TUBE Routine 07/11/2018 9:45 Results for this INSERTION W FLUORO AM CDT procedure are in the results section. TSH/FREE T4 IF STAT 07/10/2018 12:18 Results for this INDICATED PM CDT procedure are in the results section. XR CHEST PA OR AP 1 STAT 07/10/2018 11:01 Results for this VIEW IN DEPT. AM CDT procedure are in the results section. CBC W/PLT COUNT & AUTO STAT 07/10/2018 10:13 Results for this DIFFERENTIAL AM CDT procedure are in the results section. PT/APTT STAT 07/10/2018 10:13 Results for this AM CDT procedure are in the results section. COMPREHENSIVE STAT 07/10/2018 10:13 Results for this METABOLIC PANEL AM CDT procedure are in the results section. CBC W/PLT COUNT & AUTO STAT 07/10/2018 10:13 Results for this DIFFERENTIAL AM CDT procedure are in the results section. RHYTHM STRIP - SCAN 06/24/2018 11:01 AM CDT (CELLAVISION MANUAL Routine 06/21/2018 5:35 Results for this DIFF) AM CDT procedure are in the results section. CBC W/PLT COUNT & AUTO Routine 06/21/2018 5:35 Results for this DIFFERENTIAL AM CDT procedure are in the results section. BASIC METABOLIC PANEL Routine 06/21/2018 5:35 Results for this (7) AM CDT procedure are in the results section. CBC W/PLT COUNT & AUTO Routine 06/21/2018 5:35 Results for this DIFFERENTIAL AM CDT procedure are in the results section. ECG 12-LEAD Routine 06/20/2018 12:38 Results for this PM CDT procedure are in the results section. (CELLAVISION MANUAL Routine 06/20/2018 5:23 Results for this DIFF) AM CDT procedure are in the results section. CBC W/PLT COUNT & AUTO Routine 06/20/2018 5:23 Results for this DIFFERENTIAL AM CDT procedure are in the results section. BASIC METABOLIC PANEL Routine 06/20/2018 5:23 Results for this (7) AM CDT procedure are in the results section. CBC W/PLT COUNT & AUTO Routine 06/20/2018 5:23 Results for this DIFFERENTIAL AM CDT procedure are in the results section. (CELLAVISION MANUAL Routine 06/19/2018 6:44 Results for this DIFF) AM CDT procedure are in the results section. CBC W/PLT COUNT & AUTO Routine 06/19/2018 6:44 Results for this DIFFERENTIAL AM CDT procedure are in the results section. BASIC METABOLIC PANEL Routine 06/19/2018 6:44 Results for this (7) AM CDT procedure are in the results section. CBC W/PLT COUNT & AUTO Routine 06/19/2018 6:44 Results for this DIFFERENTIAL AM CDT procedure are in the results section. BLOOD CULTURE Routine 06/18/2018 2:31 Results for this PM CDT procedure are in the results section. BLOOD CULTURE Routine 06/18/2018 2:24 Results for this PM CDT procedure are in the results section. (CELLAVISION MANUAL STAT 06/18/2018 10:48 Results for this DIFF) AM CDT procedure are in the results section. CBC W/PLT COUNT & AUTO STAT 06/18/2018 10:48 Results for this DIFFERENTIAL AM CDT procedure are in the results section. VANCOMYCIN LEVEL, STAT 06/18/2018 10:48 Results for this RANDOM AM CDT procedure are in the results section. MAGNESIUM STAT 06/18/2018 10:48 Results for this AM CDT procedure are in the results section. BASIC METABOLIC PANEL STAT 06/18/2018 10:48 Results for this (7) AM CDT procedure are in the results section. CBC W/PLT COUNT & AUTO STAT 06/18/2018 10:48 Results for this DIFFERENTIAL AM CDT procedure are in the results section. CBC W/PLT COUNT & AUTO Routine 06/17/2018 6:21 Results for this DIFFERENTIAL PM CDT procedure are in the results section. CBC W/PLT COUNT & AUTO Routine 06/17/2018 6:21 Results for this DIFFERENTIAL PM CDT procedure are in the results section. LACTIC ACID, VENOUS STAT 06/17/2018 1:20 Results for this PM CDT procedure are in the results section. PROCALCITONIN STAT 06/17/2018 1:20 Results for this PM CDT procedure are in the results section. XR ESOPH SWALLOW Routine 06/17/2018 12:15 Results for this FUNCTION W/CINE VIDEO PM CDT procedure are in the results section. XR CHEST 1 VIEW STAT 06/17/2018 8:04 Results for this PORTABLE/BEDSIDE AM CDT procedure are in the results section. PHOSPHORUS STAT 06/17/2018 4:56 Results for this AM CDT procedure are in the results section. MAGNESIUM STAT 06/17/2018 4:56 Results for this AM CDT procedure are in the results section. VANCOMYCIN LEVEL, Routine 06/17/2018 4:56 Results for this RANDOM AM CDT procedure are in the results section. BASIC METABOLIC PANEL Routine 06/17/2018 4:56 Results for this (7) AM CDT procedure are in the results section. PERIPHERAL VASCULAR 06/16/2018 9:10 REPORT - SCAN PM CDT RHYTHM STRIP - SCAN 06/16/2018 11:[address] CHEST PE TEST STAT 06/16/2018 9:30 Results for this DESIGN AM CDT procedure are in the results section. XR CHEST 1 VIEW Routine 06/16/2018 6:02 Results for this PORTABLE/BEDSIDE AM CDT procedure are in the results section. (CELLAVISION MANUAL Routine 06/16/2018 4:48 Results for this DIFF) AM CDT procedure are in the results section. CBC W/PLT COUNT & AUTO Routine 06/16/2018 4:48 Results for this DIFFERENTIAL AM CDT procedure are in the results section. BASIC METABOLIC PANEL Routine 06/16/2018 4:48 Results for this (7) AM CDT procedure are in the results section. CBC W/PLT COUNT & AUTO Routine 06/16/2018 4:48 Results for this DIFFERENTIAL AM CDT procedure are in the results section. ECHOCARDIOGRAM REPORT 06/15/2018 9:10 - SCAN PM CDT MAGNESIUM KENIA 06/15/2018 5:35 Results for this PM CDT procedure are in the results section. BASIC METABOLIC PANEL KENIA 06/15/2018 5:35 Results for this (7) PM CDT procedure are in the results section. VENOUS DOPPLER LEGS STAT 06/15/2018 1:55 Results for this BILATERAL PM CDT procedure are in the results section. 2D ECHO W/ DOPPLER STAT 06/15/2018 12:11 Results for this (CW/PW/COLOR) PM CDT procedure are in the results section. XR CHEST 1 VIEW Routine 06/15/2018 11:44 Results for this PORTABLE/BEDSIDE AM CDT procedure are in the results section. BLOOD GAS, ARTERIAL STAT 06/15/2018 11:13 Results for this AM CDT procedure are in the results section. B-TYPE NATRIURETIC STAT 06/15/2018 9:00 Results for this FACTOR (BNP) AM CDT procedure are in the results section. D-DIMER STAT 06/15/2018 9:00 Results for this AM CDT procedure are in the results section. RESPIRATORY PANEL [facility] STAT 06/15/2018 8:57 Results for this AM CDT procedure are in the results section. FIBRINOGEN STAT 06/15/2018 8:40 Results for this AM CDT procedure are in the results section. PT/APTT STAT 06/15/2018 8:40 Results for this AM CDT procedure are in the results section. TROPONIN I STAT 06/15/2018 8:33 Results for this AM CDT procedure are in the results section. PHOSPHORUS STAT 06/15/2018 8:33 Results for this AM CDT procedure are in the results section. MAGNESIUM STAT 06/15/2018 8:33 Results for this AM CDT procedure are in the results section. COMPREHENSIVE STAT 06/15/2018 8:33 Results for this METABOLIC PANEL AM CDT procedure are in the results section. LACTIC ACID, ARTERIAL STAT 06/15/2018 8:21 Results for this AM CDT procedure are in the results section. BLOOD CULTURE Routine 06/15/2018 8:21 Results for this AM CDT procedure are in the results section. BLOOD GAS, ARTERIAL STAT 06/15/2018 8:20 Results for this AM CDT procedure are in the results section. SPUTUM CULTURE + GRAM Routine 06/15/2018 8:08 Results for this STAIN AM CDT procedure are in the results section. BLOOD CULTURE Routine 06/15/2018 5:53 Results for this AM CDT procedure are in the results section. CBC W/PLT COUNT & AUTO Routine 06/15/2018 5:52 Results for this DIFFERENTIAL AM CDT procedure are in the results section. MAGNESIUM Routine 06/15/2018 5:52 Results for this AM CDT procedure are in the results section. BASIC METABOLIC PANEL Routine 06/15/2018 5:52 Results for this (7) AM CDT procedure are in the results section. CBC W/PLT COUNT & AUTO Routine 06/15/2018 5:52 Results for this DIFFERENTIAL AM CDT procedure are in the results section. XR CHEST 1 VIEW STAT 06/15/2018 5:03 Results for this PORTABLE/BEDSIDE AM CDT procedure are in the results section. POCT-LACTIC ACID, Routine 06/15/2018 4:26 Results for this VENOUS AM CDT procedure are in the results section. URINALYSIS W/ REFLEX Routine 06/14/2018 7:34 Results for this URINE CULTURE PM CDT procedure are in the results section. XR CHEST 1 VIEW Routine 06/14/2018 6:47 Results for this PORTABLE/BEDSIDE PM CDT procedure are in the results section. BLOOD CULTURE Routine 06/14/2018 6:23 Results for this PM CDT procedure are in the results section. BLOOD CULTURE Routine 06/14/2018 6:14 Results for this PM CDT procedure are in the results section. CBC W/PLT COUNT & AUTO Routine 06/14/2018 4:15 Results for this DIFFERENTIAL AM CDT procedure are in the results section. CBC W/PLT COUNT & AUTO Routine 06/14/2018 4:15 Results for this DIFFERENTIAL AM CDT procedure are in the results section. XR CHEST 1 VIEW Routine 06/14/2018 3:55 Results for this PORTABLE/BEDSIDE AM CDT procedure are in the results section. BLOOD GAS, ARTERIAL Routine 06/14/2018 12:32 Results for this AM CDT procedure are in the results section. POCT-GLUCOSE METER Routine 06/13/2018 5:22 Results for this AM CDT procedure are in the results section. XR CHEST 1 VIEW Routine 06/13/2018 4:00 Results for this PORTABLE/BEDSIDE AM CDT procedure are in the results section. CBC W/PLT COUNT & AUTO Routine 06/13/2018 3:34 Results for this DIFFERENTIAL AM CDT procedure are in the results section. PHOSPHORUS Routine 06/13/2018 3:34 Results for this AM CDT procedure are in the results section. MAGNESIUM Routine 06/13/2018 3:34 Results for this AM CDT procedure are in the results section. BASIC METABOLIC PANEL STAT 06/13/2018 3:34 Results for this (7) AM CDT procedure are in the results section. APTT Routine 06/13/2018 3:34 Results for this AM CDT procedure are in the results section. PROTHROMBIN TIME/INR Routine 06/13/2018 3:34 Results for this AM CDT procedure are in the results section. CBC W/PLT COUNT & AUTO Routine 06/13/2018 3:34 Results for this DIFFERENTIAL AM CDT procedure are in the results section. POCT-GLUCOSE METER Routine 06/13/2018 12:05 Results for this AM CDT procedure are in the results section. POCT-GLUCOSE METER Routine 06/12/2018 12:07 Results for this PM CDT procedure are in the results section. XR CHEST 1 VIEW STAT 06/12/2018 12:03 Results for this PORTABLE/BEDSIDE PM CDT procedure are in the results section. CT SOFT TISSUE NECK Routine 06/12/2018 9:32 Results for this WITH IV CONTRAST AM CDT procedure are in the results section. CT CHEST WITH IV Routine 06/12/2018 9:32 Results for this CONTRAST AM CDT procedure are in the results section. PROCEDURE DONE OUTSIDE 06/12/2018 8:00 Malignant neoplasm OR AM CDT of head, face, and neck (HCC) Malignant neoplasm metastatic to lung, unspecified laterality (HCC) POCT-GLUCOSE METER Routine 06/12/2018 5:41 Results for this AM CDT procedure are in the results section. XR CHEST 1 VIEW Routine 06/12/2018 3:31 Results for this PORTABLE/BEDSIDE AM CDT procedure are in the results section. CBC W/PLT COUNT & AUTO Routine 06/12/2018 3:18 Results for this DIFFERENTIAL AM CDT procedure are in the results section. PHOSPHORUS Routine 06/12/2018 3:18 Results for this AM CDT procedure are in the results section. MAGNESIUM Routine 06/12/2018 3:18 Results for this AM CDT procedure are in the results section. BASIC METABOLIC PANEL STAT 06/12/2018 3:18 Results for this (7) AM CDT procedure are in the results section. APTT Routine 06/12/2018 3:18 Results for this AM CDT procedure are in the results section. PROTHROMBIN TIME/INR Routine 06/12/2018 3:18 Results for this AM CDT procedure are in the results section. CBC W/PLT COUNT & AUTO Routine 06/12/2018 3:18 Results for this DIFFERENTIAL AM CDT procedure are in the results section. POCT-GLUCOSE METER Routine 06/11/2018 11:52 Results for this PM CDT procedure are in the results section. POCT-GLUCOSE METER Routine 06/11/2018 5:54 Results for this AM CDT procedure are in the results section. CBC W/PLT COUNT & AUTO Routine 06/11/2018 3:24 Results for this DIFFERENTIAL AM CDT procedure are in the results section. PREALBUMIN Routine 06/11/2018 3:24 Results for this AM CDT procedure are in the results section. TSH/FREE T4 IF Routine 06/11/2018 3:24 Results for this INDICATED AM CDT procedure are in the results section. PHOSPHORUS Routine 06/11/2018 3:24 Results for this AM CDT procedure are in the results section. MAGNESIUM Routine 06/11/2018 3:24 Results for this AM CDT procedure are in the results section. BASIC METABOLIC PANEL STAT 06/11/2018 3:24 Results for this (7) AM CDT procedure are in the results section. APTT Routine 06/11/2018 3:24 Results for this AM CDT procedure are in the results section. PROTHROMBIN TIME/INR Routine 06/11/2018 3:24 Results for this AM CDT procedure are in the results section. CBC W/PLT COUNT & AUTO Routine 06/11/2018 3:24 Results for this DIFFERENTIAL AM CDT procedure are in the results section. POCT-GLUCOSE METER Routine 06/11/2018 1:02 Results for this AM CDT procedure are in the results section. POCT-GLUCOSE METER Routine 06/10/2018 6:03 Results for this PM CDT procedure are in the results section. POCT-GLUCOSE METER Routine 06/10/2018 11:20 Results for this AM CDT procedure are in the results section. POCT-GLUCOSE METER Routine 06/10/2018 6:04 Results for this AM CDT procedure are in the results section. XR CHEST 1 VIEW Routine 06/10/2018 3:59 Results for this PORTABLE/BEDSIDE AM CDT procedure are in the results section. CBC W/PLT COUNT & AUTO Routine 06/10/2018 3:45 Results for this DIFFERENTIAL AM CDT procedure are in the results section. BLOOD GAS, VENOUS Routine 06/10/2018 3:45 Results for this AM CDT procedure are in the results section. PHOSPHORUS Routine 06/10/2018 3:45 Results for this AM CDT procedure are in the results section. MAGNESIUM Routine 06/10/2018 3:45 Results for this AM CDT procedure are in the results section. BASIC METABOLIC PANEL STAT 06/10/2018 3:45 Results for this (7) AM CDT procedure are in the results section. APTT Routine 06/10/2018 3:45 Results for this AM CDT procedure are in the results section. PROTHROMBIN TIME/INR Routine 06/10/2018 3:45 Results for this AM CDT procedure are in the results section. CBC W/PLT COUNT & AUTO Routine 06/10/2018 3:45 Results for this DIFFERENTIAL AM CDT procedure are in the results section. POCT-GLUCOSE METER Routine 06/10/2018 1:03 Results for this AM CDT procedure are in the results section. XR CHEST 1 VIEW STAT 06/09/2018 7:20 Results for this PORTABLE/BEDSIDE PM CDT procedure are in the results section. (CELLAVISION MANUAL Routine 06/09/2018 6:57 Results for this DIFF) PM CDT procedure are in the results section. CBC W/PLT COUNT & AUTO Routine 06/09/2018 6:57 Results for this DIFFERENTIAL PM CDT procedure are in the results section. PHOSPHORUS Routine 06/09/2018 6:57 Results for this PM CDT procedure are in the results section. MAGNESIUM Routine 06/09/2018 6:57 Results for this PM CDT procedure are in the results section. BASIC METABOLIC PANEL STAT 06/09/2018 6:57 Results for this (7) PM CDT procedure are in the results section. APTT Routine 06/09/2018 6:57 Results for this PM CDT procedure are in the results section. PROTHROMBIN TIME/INR Routine 06/09/2018 6:57 Results for this PM CDT procedure are in the results section. CBC W/PLT COUNT & AUTO Routine 06/09/2018 6:57 Results for this DIFFERENTIAL PM CDT procedure are in the results section. TISSUE EXAM AP Routine 06/09/2018 5:35 Results for this PM CDT procedure are in the results section. XR CHEST 1 VIEW Routine 06/09/2018 5:00 Results for this PORTABLE/BEDSIDE PM CDT procedure are in the results section. XR CHEST 1 VIEW Routine 06/09/2018 4:40 Results for this PORTABLE/BEDSIDE PM CDT procedure are in the results section. INSERTION,CHEST TUBE 06/09/2018 3:15 Laryngeal mass PM CDT Case Notes 2 HRS Special Needs (23 HRS OBS) TRACHEOSTOMY 06/09/2018 3:15 PM CDT Laryngeal mass Case Notes 2 HRS Special Needs (23 HRS OBS) LARYNGOSCOPY,BIOPSY 06/09/2018 3:15 PM CDT Laryngeal mass Case Notes 2 HRS Special Needs (23 HRS OBS) PLATELET COUNT Routine 06/09/2018 12:28 PM CDT HEMOGLOBIN Routine 06/09/2018 12:28 PM CDT after 08/28/2017 Results Creatinine (08/15/2018 7:02 AM CDT) Creatinine 0.63 0.57 - 1.25 mg/dL [facility] EGFR 136Comment: ESTIMATED GFR IS mL/min/1.73 sq m [facility] NOT ACCURATE CREATININE [facility] CLEARANCE IN PREDICTING GLOMERULAR FILTRATION RATE. ESTIMATED GFR IS NOT APPLICABLE FOR DIALYSIS PATIENTS. Specimen Blood Performing Organization Address City/[facility]/Zipcode Phone Number [address] [address] [phone] CENTER Vancomycin level, trough (08/13/2018 10:59 PM CDT)Only the most recent of3 resultswithin the time period is included. Vancomycin Tr 7.5 (L) 10.0 - 20.0 ug/mL [facility] Specimen Blood Performing Organization Address City/[facility]/Zipcode Phone Number [address] [address] [facility] esoph swallow funct with cine video (08/12/2018 3:30 PM CDT)Only the most recent of2 resultswithin the time period is included. Specimen Narrative Performed At FINAL REPORT [facility] Esophagram. HISTORY: Status post laryngectomy. COMPARISON STUDY: June 17, 2018. FINDINGS: A single contrast Gastrografin esophagram was performed. Post surgical changes are seen related to laryngectomy. The swallowing mechanism is normal with no evidence of aspiration seen. No evidence of extraluminal contrast extravasation is seen. No stricture is identified. There is no significant esophageal dysmotility. IMPRESSION: 1. Status post laryngectomy with no evidence of extraluminal contrast extravasation. Fluoroscopy time: 0.65 minutes. 46 images. Signed: Gaudencio Barrett MD Report Verified Date/Time:08/12/2018 18:19:29 Reading Location: [address] Ortho Consult Reading Room Procedure Note Interface, External Ris In - 08/12/2018 11:15 PM CDT FINAL REPORT Esophagram. HISTORY: Status post laryngectomy. COMPARISON STUDY: June 17, 2018. FINDINGS: A single contrast Gastrografin esophagram was performed. Post surgical changes are seen related to laryngectomy. The swallowing mechanism is normal with no evidence of aspiration seen. No evidence of extraluminal contrast extravasation is seen. No stricture is identified. There is no significant esophageal dysmotility. IMPRESSION: 1. Status post laryngectomy with no evidence of extraluminal contrast extravasation. Fluoroscopy time: 0.65 minutes. 46 images. Signed: Gaudencio Barrett MD Report Verified Date/Time: 08/12/2018 18:19:29 Reading Location: [facility] Ortho Consult Reading Room Performing Organization Address City/State/Zipcode Phone Number [facility] CBC with platelet count + automated diff (08/12/2018 3:58 AM CDT)Only the most recent of27 resultswithin the time period is included. WBC 7.1 3.5 - 10.5 K/L [facility] RBC 3.77 (L) 4.63 - 6.08 M/L [facility] Hemoglobin 10.9 (L) 13.7 - 17.5 GM/DL [facility] Hematocrit 35.7 (L) 40.1 - 51.0 % [facility] MCV 94.7 (H) 79.0 - 92.2 fL [facility] MCH 28.9 25.7 - 32.2 pg [facility] MCHC 30.5 (L) 32.3 - 36.5 GM/DL [facility] RDW 14.6 (H) 11.6 - 14.4 % [facility] Platelets 318 150 - 450 K/CU MM [facility] MPV 9.8 9.4 - 12.4 fL [facility] nRBC 0 0 - 0 /100 WBC [facility] % Neutros 72 % [facility] % Lymphs 10 % [facility] % Monos 12 % [facility] % Eos 4 % [facility] % Baso 1 % [facility] # Neutros 5.08 1.78 - 5.38 K/L [facility] # Lymphs 0.68 (L) 1.32 - 3.57 K/L [facility] # Monos 0.86 (H) 0.30 - 0.82 K/L [facility] # Eos 0.29 0.04 - 0.54 K/L [facility] # Baso 0.04 0.01 - 0.08 K/L [facility] Immature Granulocytes-Relative 1 0 - 1 % [facility] Specimen Blood Performing Organization Address City/[facility] Phone Number [facility] [address] [place] [address] [phone] [place] TSH/Free T4 If Indicated (08/11/2018 4:59 PM CDT)Only the most recent of4 resultswithin the time period is included. TSH 0.75 0.35 - 4.94 uIU/mL [facility] Specimen Blood Performing Organization Address City/[facility] Phone Number [facility] [address] [place] [phone] [place] Wound culture + gram stain (08/11/2018 4:01 PM CDT) Result No growth [facility] Gram Stain Result 2+ WBCs [facility] Gram Stain Result 1+ gram positive cocci in [facility] Gram Stain Result <1+ gram variable rods [facility] Specimen Wound Performing Organization Address [facility] Phone Number [address] [address] [place] INTRAOPERATIVE PATH REPORT - SCAN (08/06/2018 5:45 PM CDT)Only the most recent of4 resultswithin the time period is included. Narrative Performed At RHYTHM STRIP - SCAN (07/28/2018 10:30 AM CDT)Only the most recent of3 resultswithin the time period is included. Narrative Performed At Manual Differential (07/24/2018 4:17 AM CDT)Only the most recent of13 resultswithin the time period is included. % Neutros 80 % [facility] % Lymphs 2 % [facility] % Monos 15 % [facility] % Eos 3 % [facility] # Neutros 8.64 (H) 1.78 - 5.38 K/ul [facility] # Lymphs 0.22 (L) 1.32 - 3.57 K/ul [facility] # Monos 1.62 (H) 0.30 - 0.82 K/uL [facility] # Eos 0.32 0.04 - 0.54 K/uL [facility] Total Counted 100 [facility] WBC Morphology Normal [facility] Large Platelet Present [facility] Polychromasia 1+ few [facility] Artifact Present [facility] Platelet Conc Increased [facility] Specimen Blood Narrative Performed At Received comment: [facility] User comments: Slide comments: Performing Organization Address City/[facility] Cent[facility]ode Phone Number [address] [address] CENTER Phosphorus (07/24/2018 4:17 AM CDT)Only the most recent of18 resultswithin the time period is included. Phosphorus 4.8 (H) 2.3 - 4.7 mg/dL [facility] Specimen Blood Performing Organization Address [facility] Cent[facility]ode Phone Number [address] [address] CENTER Magnesium (07/24/2018 4:17 AM CDT)Only the most recent of21 resultswithin the time period is included. Magnesium 2.1 1.6 - 2.6 mg/dL [facility] Specimen Blood Performing Organization Address City/[facility] Cent[facility]ode Phone Number [address] [address] CENTER Basic Metabolic Panel (07/24/2018 4:17 AM CDT)Only the most recent of24 resultswithin the time period is included. Sodium 140 136 - 145 meq/L [facility] Potassium 4.0 3.5 - 5.1 meq/L [facility] Chloride 99 98 - 107 meq/L [facility] CO2 30 (H) 22 - 29 meq/L [facility] BUN 8 7 - 21 mg/dL [facility] Creatinine 0.71 0.57 - 1.25 mg/dL [facility] Glucose 90 70 - 105 mg/dL [facility] Calcium 8.8 8.4 - 10.2 mg/dL [facility] EGFR 118Comment: ESTIMATED GFR IS mL/min/1.73 sq m [facility] NOT ACCURATE CREATININE [facility] CLEARANCE IN PREDICTING GLOMERULAR FILTRATION RATE. ESTIMATED GFR IS NOT APPLICABLE FOR DIALYSIS PATIENTS. Specimen Blood Performing Organization Address [facility] Centercode Phone Number [address] [address] [place] POC-Glucose meter (07/22/2018 5:52 PM CDT)Only the most recent of28 resultswithin the time period is included. POC-Glucose Meter 105Comment: TESTED AT 70 - 110 mg/dL [address] [address] Specimen Blood Performing Organization Address [facility] Centercode Phone Number [address] [address] [place] Sputum Culture + Gram Stain (07/20/2018 12:20 PM CDT)Only the most recent of3 resultswithin the time period is included. Result <1+ Normal respiratory maximo [facility] Gram Stain Result <1+ White blood cells seen [facility] Gram Stain Result 0-5 epithelial cells [facility] Gram Stain Result No organisms seen [facility] Specimen Sputum Performing Organization Address City/[facility] Centercode Phone Number [facility] [address] [place] [address] CENTER PT/aPTT (07/20/2018 4:58 AM CDT)Only the most recent of8 resultswithin the time period is included. Protime 15.6 (H) 11.7 - 14.7 seconds [facility] INR 1.2 <=5.9 [facility] PTT 46.0 (H) 22.5 - 36.0 seconds [facility] Specimen Blood Narrative Performed At RECOMMENDED COUMADIN/WARFARIN INR THERAPY [facility] RANGES STANDARD DOSE: 2.0 - 3.0 Includes: PROPHYLAXIS for venous thrombosis, systemic embolization; TREATMENT for venous thrombosis and/or pulmonary embolus. HIGH RISK: Target INR is 2.5-3.5 for patients with mechanical heart valves. Performing Organization Address City/State/Zipcode Phone Number [facility] [address] [place] [address] [phone] [place] XR chest 1 view portable / bedside (07/19/2018 12:17 PM CDT)Only the most recent of17 resultswithin the time period is included. Specimen Narrative Performed At FINAL REPORT [facility] INDICATION: leukocytosis in setting of recent laryngectomy COMPARISON: July 17 TECHNIQUE: Chest radiograph, single view, portable technique. FINDINGS / IMPRESSION: No pneumonia is demonstrated. Right base linear opacities represent subsegmental atelectasis. Tracheostomy tube and left low neck dissection noted. No pneumomediastinum or pneumothorax demonstrated. Cardiac and mediastinal contours unremarkable. Signed: Randolph Man MD Report Verified Date/Time:07/19/2018 13:59:21 Reading Location: [facility] [id number] Consult Reading Room Procedure Note Interface, External Ris In - 07/19/2018 2:01 PM CDT FINAL REPORT INDICATION: leukocytosis in setting of recent laryngectomy COMPARISON: July 17 TECHNIQUE: Chest radiograph, single view, portable technique. FINDINGS / IMPRESSION: No pneumonia is demonstrated. Right base linear opacities represent subsegmental atelectasis. Tracheostomy tube and left low neck dissection noted. No pneumomediastinum or pneumothorax demonstrated. Cardiac and mediastinal contours unremarkable. Signed: Randolph Man MD Report Verified Date/Time: 07/19/2018 13:59:21 Reading Location: [facility] B1 [id number] Consult Reading Room Performing Organization Address City/[facility] Phone Number [facility] Urinalysis w/Microscopic + Reflex to Culture (07/19/2018 10:37 AM CDT)Only the most recent of2 resultswithin the time period is included. Color, UA Light Yellow [facility] Clarity, UA Clear [facility] Specific [place], UA 1.013 1.001 - 1.035 [facility] pH, UA 6.0 5.0 - 8.0 [facility] Protein, UA Negative Negative [facility] Glucose, UA Negative Negative [facility] Ketones, UA Negative Negative [facility] Bilirubin, UA Negative Negative [facility] Blood, UA Trace (A) Negative [facility] Nitrite, UA Negative Negative [facility] Leukocytes, UA Small (A) Negative [facility] Urobilinogen, UA 0.2 0.2 - 1.0 mg/dL [facility] RBC, UA 2 /HPF [facility] WBC, UA 15 /HPF [facility] Mucus Occasional [facility] Hyaline Casts, UA 2 /LPF [facility] Specimen Source [facility] Specimen Urine Performing Organization Address City/[facility]/Zipcode Phone Number [facility] [address] [place] [address] [phone] CENTER Urine culture (07/19/2018 10:37 AM CDT) Result No growth [facility] Specimen Urine Performing Organization Address City/[facility]/Zipcode Phone Number [address] [address] [place] T4, free (07/18/2018 9:30 AM CDT)Only the most recent of2 resultswithin the time period is included. Free T4 0.90 0.70 - 1.48 ng/dL [facility] Specimen Blood Performing Organization Address City/[facility]/Zipcode Phone Number [address] [address] [phone] [place] Albumin (07/17/2018 3:49 AM CDT)Only the most recent of4 resultswithin the time period is included. Albumin 3.2 (L) 3.5 - 5.0 g/dL [facility] Specimen Blood Performing Organization Address City/[facility] Centercowv Phone Number [address] [address] [place] ECG 12 lead (07/16/2018 8:41 AM CDT)Only the most recent of2 resultswithin the time period is included. Specimen Narrative Performed At Ventricular Rate 116 BPM GE MUSE Atrial Rate 116 BPM P-R Interval 140 ms QRS Duration 70 ms Q-T Interval 328 ms QTC Calculation(Bazett) 455 ms P [place] 49 degrees R [place] 30 degrees T [place] 33 degrees Sinus tachycardia Otherwise normal ECG No previous ECGs available Confirmed by MD Walter Roberto ([id number]) on 07/17/2018 2:09:23 PM Procedure Note Interface, External Ris In - 07/17/2018 2:09 PM CDT Ventricular Rate 116 BPM Atrial Rate 116 BPM P-R Interval 140 ms QRS Duration 70 ms Q-T Interval 328 ms QTC Calculation(Bazett) 455 ms P [place] 49 degrees R [place] 30 degrees T [place] 33 degrees Sinus tachycardia Otherwise normal ECG No previous ECGs available Confirmed by MD Walter Roberto ([id number]) on 07/17/2018 2:09:23 PM Performing Organization Address City/[facility] Phone Number GE MUSE Troponin I (07/16/2018 7:32 AM CDT)Only the most recent of2 resultswithin the time period is included. Troponin I 0.01 0.00 - 0.03 ng/mL [facility] Specimen Blood Narrative Performed At Troponin I (TnI) levels must be interpreted [facility] in the context of the presenting symptoms and the clinical findings. Elevated TnI levels indicate myocardial damage, but are not specific for ischemic heart disease. Elevated TnI levels are seen in patients with other cardiac conditions (including myocarditis and congestive heart failure), and slight TnI elevations occur in patients with other conditions, including sepsis, renal failure, acidosis, acute neurological disease, and persistent tachyarrhythmia. Performing Organization Address [facility] Phone Number [address] [address] [place] Blood gas, arterial (07/16/2018 7:32 AM CDT)Only the most recent of5 resultswithin the time period is included. pH, Arterial 7.42 7.35 - 7.45 [facility] pCO2, Arterial 40 35 - 45 mmHg [facility] pO2, Arterial 77 (L) 80 - 90 mmHg [facility] O2 Sat, Arterial 95.8 (L) 96.0 - 97.0 % [facility] HCO3, Arterial 25 21 - 29 mmol/L [facility] Base Excess, Arterial 0.9 -2.0 - 3.0 mmol/L [facility] Patient Temperature 36.8 C [facility] FIO2 44.0 % [facility] Specimen Blood, Arterial Performing Organization Address [facility] Centercode Phone Number [address] [address] [place] TRANSFUSION SERVICE REPORT - SCAN (07/15/2018 6:08 PM CDT) Narrative Performed At TSH (07/14/2018 6:48 PM CDT) TSH 6.82 (H) 0.35 - 4.94 uIU/mL [facility] Specimen Blood Performing Organization Address [facility] Phone Number [address] [address] CENTER Prealbumin (07/14/2018 6:48 PM CDT)Only the most recent of2 resultswithin the time period is included. Prealbumin 17Comment: Specimen slightly 14 - 45 mg/dL [facility] hemolyzed [facility] Specimen Blood Performing Organization Address [facility] Phone Number [address] [address] [place] PTH, intact (07/14/2018 6:48 PM CDT) PTH 16.1 8.5 - 72.5 pg/mL [facility] Specimen Blood Narrative Performed At [facility] Performing Organization Address [facility] Phone Number [address] [address] [place] Potassium-Stat Lab (07/14/2018 3:01 PM CDT) Potassium 4.0 3.6 - 5.5 meq/L [facility] Specimen Blood, Arterial Performing Organization Address [facility] Phone Number [address] [address] CENTER Sodium Na-Stat Lab (07/14/2018 3:01 PM CDT) Sodium 137 135 - 148 meq/L [facility] Specimen Blood, Arterial Performing Organization Address [facility] Phone Number [address] [address] CENTER Glucose-Stat Lab (07/14/2018 3:01 PM CDT) Glucose 87 70 - 110 mg/dL [facility] Specimen Blood, Arterial Performing Organization Address City/[facility]/Zipcode Phone Number [address] [phone] CENTER HGB/HCT (H&H)-Stat Lab (07/14/2018 3:01 PM CDT) Hemoglobin 11.0 (L) 13.0 - 16.8 g/dL [facility] Hematocrit 32.0 (L) 40.0 - 50.0 % [facility] Specimen Blood, Arterial Performing Organization Address [facility] Phone Number [address] [phone] CENTER ABORH, manual (07/14/2018 10:34 AM CDT) ABO Grouping A [facility] Rh Factor POS [facility] Specimen Blood Performing Organization Address [facility] Phone Number [address] [address] Tissue Exam (07/14/2018 10:23 AM CDT)Only the most recent of2 resultswithin the time period is included. Case Report Surgical Pathology Report Case: [id number] [facility] Authorizing Provider:Guilherme Fraire MD Collected: 07/14/2018 [facility]3 [facility] MEDICAL Ordering Location: [facility] PERIOPERATIVE Received: 07/14/2018 [facility]9 CENTER SERVICES Pathologist: Jackie Hardy MD Specimens: A) - Soft Tissue, Other, rule out left superior parathyroid B) - Soft Tissue, Other, NECK DISSECTION LEVEL 1A C) - Soft Tissue, Other, TOTAL LARYNGECTOMY; PLEASE CHECK TRACHEAL AND PHARYNGEAL MARGINS D) - Soft Tissue, Other, LEFT NECK DISSECTION LEVEL 2 DIAGNOSIS A. PARATHYROID GLAND, LEFT SUPERIOR, BIOPSY: [facility] - PARATHYROID TISSUE IDENTIFIED [facility] MED[facility] - NO EVIDENCE OF MALIGNANCY CENTER B. LYMPH NODE, LEVEL 1A, SIDE UNSTATED, DISSECTION: - TWO BENIGN LYMPH NODES (0/2) C. LARYNX, TOTAL LARYNGECTOMY: - NO RESIDUAL CARCINOMA - ULCER AND FOCAL NECROTIC TISSUE, AND STATUS POST CHEMORADIATION RELATED CHANGES (SEE COMMENT) - LYMPH-VASCULAR INVASION: NOT IDENTIFIED - PERINEURAL INVASION: NOT IDENTIFIED - RESECTION MARGINS (ANTERIOR VALLECULAR MUCOSAL, RIGHT AND LEFT LATERAL PHARYNGEAL MUCOSAL, POSTERIOR CRICOID MUCOSAL, TRACHEOSTOMY SKIN, DISTAL TRACHEAL, RIGHT AND LEFT LATERAL SOFT TISSUE, AND ANTERIOR SOFT TISSUE) ALL NEGATIVE FOR CARCINOMA - SMALL PORTION OF THYROID TISSUE, NEGATIVE FOR CARCINOMA D. LYMPH NODE, LEFT LEVEL 2, DISSECTION: - TWO BENIGN LYMPH NODES (0/2) Signing Pathologist Direct Phone Line: [phone] COMMENT There is a detached piece of [facility] (section C18) involving CENTER left vocal cord. The focus measures 0.2 cm in greatest dimension. Underlying tissue shows ulceration and granulation tissue. SYNOPTIC REPORT LARYNX (SUPRAGLOTTIS, GLOTTIS, SUBGLOTTIS)(Larynx - All Specimens) [facility] SPECIMEN Procedure:Total laryngectomy TUMOR Tumor Site:Not specified Transglottic Extension:Not identified Tumor Laterality:Not specified Histologic Type:no residual carcinoma Histologic Grade:Not applicable Tumor Focality:Cannot be determined: no residual carcinoma Tumor Size:Cannot be determined: no residual carcinoma Tumor Extent: Tumor Extension:no reidual carcinoma Accessory Findings: Lymphovascular Invasion:Not identified Perineural Invasion:Not identified MARGINS Margins:Uninvolved by invasive tumor Distance from Closest Margin in Millimeters (mm):Cannot be determined: no reidual carcinoma Location of Closest Margin, per Orientation:Cannot be determined: no reidual carcinoma Status of Non-Invasive Tumor at Margins:Uninvolved by high grade dysplasia / in situ disease Distance from Closest Margin in Millimeters (mm):Cannot be determined: no reidual carcinoma/dysplasia Location of Closest Margin, per Orientation:Cannot be determined: no reidual carcinoma LYMPH NODES : Number Involved:0 Number of Lymph Nodes Examined:4 PATHOLOGIC STAGE CLASSIFICATION (pTNM, AJCC 8th Edition) TNM Descriptors:y (post-treatment) : Primary Tumor (pT):Primary tumor cannot be assessed Regional Lymph Nodes (pN):pN0 Distant Metastasis (pM):Not applicable - pM cannot be determined from the submitted specimen(s) CPT Code(s) 52603 X3, 60630, 87726, [address] [facility] X2, 69970 X 4, 63548 x1, [address] [place] [address] CENTER CLINICAL HISTORY 47-year-old male with 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 [facility] GROSS DESCRIPTION A. The specimen is received fresh for intraoperative consultation labeled with patient's name "CHELI", medical record number, and "rule out left superior parathyroid." It consists of a piece of paige-pink [facility] tissue measuring 0.4 x 0.3 x 0.2 cm. A touch preparation slide is made. The specimen is entirely embedded as FSA1 for frozen section diagnosis. [facility] B. The specimen is received in formalin labeled with patient's name "CHELI", medical record number, and "neck dissection level 1A." It consists of a piece of fibroadipose tissue measuring 3.1 x 3.0 x 1.0 cm. Serial sectioning reveals no lymph node grossly. The specimen is entirely submitted in cassettes B1 through B6. C. The specimen is received fresh for intraoperative consultation labeled with patient's name "CHELI", medical record number, and "total laryngectomy." It consists of the entire larynx (9.7 cm superior t o inferior, 5.5 cm to medial to lateral, 5.0 cm to anterior to posterior) including hyoid bone, anterior strap muscle, and a rim of skin of previous tracheostomy (3.0 x 2.5 cm). The overall orientation of the specimen is explained by the surgeon. Margins requested by the surgeon are taken and embedded as follows for frozen section diagnosis: FSC1 - distal tracheal en face margin; FSC2 - posterior cric oid mucosal margin; FSC3 - right lateral pharyngeal mucosal margin; FSC4 - left lateral pharyngeal mucosal margin; FSC5 - anterior vallecular mucosal margin. The specimen is opened along the posterior w all of larynx, revealing edematous mucosa with a focal whitish discoloration (1.0 x 0.8 cm) around the left vocal cord area. No overt mass lesions are seen. The thyroid cartilage is ossified. After 24-hour formalin fixation and following decalcification, the specimen is serially sectioned longitudinally and reveals no gross mass lesion. [employer] sections are submitted as follows: C6 - right soft tissue en face margin; C7 - left soft tissue en face margin; C8 - anterior soft tissue en face margin; C9 and C10 - skin margin of tracheostomy; C11 through C25 - C11 through C13 - longitudin al sections of midline larynx; C14 through C16 and C17 through C19 - longitudinal sections of left larynx; C20 through C22 and C23 through C25 - longitudinal sections of right larynx; C26-C27 and C28-C29 - longitudinal sections of far right larynx. D. The specimen is received in formalin labeled with patient's name "CHELI", medical record number, and "left neck dissection level 2." It consists of a piece of fibroadipose tissue measuring 2.5 x 1.5 x 0.6 cm. Serial sectioning reveals no lymph node grossly. The specimen is entirely submitted in cassettes D1 and D2. INTRAOPERATIVE FSA. SOFT TISSUE, "RULE OUT LEFT SUPERIOR PARATHYROID," EXCISION: [facility] CONSULTATION - PARATHYROID TISSUE IDENTIFIED [facility] - NO EVIDENCE OF MALIGNANCY CENTER VERBALLY REPORTED TO DR. FRAIRE BY DR. HARDY AT 10:45 AM ON 07/14/2018. FSC1-5. LARYNX, TOTAL LARYNGECTOMY: RESECTION MARGINS, ANTERIOR VALLECULAR MUCOSAL, RIGHT LATERAL PHARYNGEAL MUCOSAL, LEFT LATERAL PHARYNGEAL MUCOSAL, POSTERIOR CRICOID MUCOSAL, AND TRACHEAL, ALL NEGATIVE FOR CARCINOMA VERBALLY REPORTED TO DR. FRAIRE BY DR. HARDY AT 11:54 AM ON 07/14/2018. MICROSCOPIC DESCRIPTION C. There is a detached piece of [facility] necrotic atypical squamous [facility] cells (section C18) in left CENTER vocal cord. Underlying tissue shows ulcer and granulation tissue. On C19, [place]-8 positivity confirms portion of thyroid tissue present. On C16, There is ulceration with underlying granulation tissue. Some atypical cells are noted in the soft tissue, favoring atypia related to radiation and chemo. The negativity of the P63 and AE1/AE3 confirms that no residual tumor cells, the atypical cells might be reactive fibroblasts. SPECIAL STUDIES The interpretation of this case included the use of immunohistochemistry or special stains. [facility] Immunohistochemistry technical testing was performed at [facility], Pathology Laboratory where it was developed and its performance characteristics were determined. It has not be CENTER en cleared or approved by the U.S. Food and Drug Administration. The FDA has determined that such clearance or approval is not necessary. The test is used for clinical purposes. It should not be regarde d as investigational or for research. This laboratory is certified under the Clinical Laboratory Improvement Amendments of 1988 (CLIA-88) as qualified to perform high complexity clinical laboratory testing. Specimen Tissue Tissue - Soft tissue (navigational concept) Tissue - Soft tissue (navigational concept) Tissue - Soft tissue (navigational concept) Performing Organization Address [facility] Phone Number [address] [address] [phone] CENTER Type and screen, automated (07/14/2018 10:18 AM CDT) ABO/RH AUTOMATED (BEAKER) A POSITIVE [facility] Ab Scrn NEGATIVE [facility] Specimen Blood Performing Organization Address [facility] Phone Number [address] [phone] IR G-Tube Insertion w/Fluoro (07/11/2018 9:45 AM CDT) Specimen Narrative Performed At FINAL REPORT [facility] Fluoroscopic guided gastrostomy tube placement, 07/11/2018. Clinical History: Laryngeal cancer. Modality: Fluoroscopy. Imcu Nurse:Jack Beckford MD. Client Service Supervisor:Dilip Vivas MD. Conscious sedation: 2.0 mg Versed, 150 mcg fentanyl IV for moderate sedation.The patient was continuously monitored throughout the procedure by the nurse. Vital signs remained stable throughout. Physician intraservice time was 25 minutes. Other medication: Glucagon 1 mg IV. Estimated Blood Loss:Less than 1 cc. Specimen: None. Fluoroscopy Time: 2.7 min. Reference Air Kerma (Ka, r): 15.5 mGy. Technique: Discussion of risks, benefits, and alternatives were made with the patient. The patient expressed understanding and agreed to proceed. After informed consent was obtained, which included the risks of bleeding, infection, injury to adjacent structures/bowel, adverse medication reaction, the patient's abdomen was prepped and draped in the usual sterile manner. All elements maximal sterile barrier technique was utilized for this procedure, including utilization of sterile scrub solution for skin prep, a large sterile sheet to cover the areas of the patient that were not prepped, and hand hygiene, mask, head covering, and sterile gown for performing radiologist and scrub technologist. Local anesthesia was achieved with 2% lidocaine, the stomach was insufflated with air via the NG tube. A 19-gauge needle was advanced into the mid-body of the stomach under fluoroscopic guidance. Aspiration of air and injection of contrast confirmed positioning within the stomach. An Amplatz wire was advanced through the needle and curled within the fundus. After a small skin incision was made, the soft tissue tract was created with serial dilators. After the tract was dilated, a 14 [place] catheter was placed into the stomach. The wire was then removed, and the pigtail of the catheter was locked.The catheter was then secured onto the skin with 2-0 silk. The patient tolerated the procedure well, without immediate complications. The patient's vital signs remained stable throughout the procedure. Patient disposition: The patient was discharged from the department in stable condition. Impression: Successful and uncomplicated fluoroscopic guided gastrostomy tube placement, with conscious sedation. Signed: Jack Beckford MD Report Verified Date/Time:07/11/2018 14:18:50 Reading Location: [address] Body Reading Room Procedure Note Interface, External Ris In - 07/11/2018 2:20 PM CDT FINAL REPORT Fluoroscopic guided gastrostomy tube placement, 07/11/2018. Clinical History: Laryngeal cancer. Modality: Fluoroscopy. Imcu Nurse: Jack Beckford MD. Client Service Supervisor: Dilip Vivas MD. Conscious sedation: 2.0 mg Versed, 150 mcg fentanyl IV for moderate sedation. The patient was continuously monitored throughout the procedure by the nurse. Vital signs remained stable throughout. Physician intraservice time was 25 minutes. Other medication: Glucagon 1 mg IV. Estimated Blood Loss: Less than 1 cc. Specimen: None. Fluoroscopy Time: 2.7 min. Reference Air Kerma (Ka, r): 15.5 mGy. Technique: Discussion of risks, benefits, and alternatives were made with the patient. The patient expressed understanding and agreed to proceed. After informed consent was obtained, which included the risks of bleeding, infection, injury to adjacent structures/bowel, adverse medication reaction, the patient's abdomen was prepped and draped in the usual sterile manner. All elements maximal sterile barrier technique was utilized for this procedure, including utilization of sterile scrub solution for skin prep, a large sterile sheet to cover the areas of the patient that were not prepped, and hand hygiene, mask, head covering, and sterile gown for performing radiologist and scrub technologist. Local anesthesia was achieved with 2% lidocaine, the stomach was insufflated with air via the NG tube. A 19-gauge needle was advanced into the mid-body of the stomach under fluoroscopic guidance. Aspiration of air and injection of contrast confirmed positioning within the stomach. An Amplatz wire was advanced through the needle and curled within the fundus. After a small skin incision was made, the soft tissue tract was created with serial dilators. After the tract was dilated, a 14 [place] catheter was placed into the stomach. The wire was then removed, and the pigtail of the catheter was locked. The catheter was then secured onto the skin with 2-0 silk. The patient tolerated the procedure well, without immediate complications. The patient's vital signs remained stable throughout the procedure. Patient disposition: The patient was discharged from the department in stable condition. Impression: Successful and uncomplicated fluoroscopic guided gastrostomy tube placement, with conscious sedation. Signed: Jack Beckford MD Report Verified Date/Time: 07/11/2018 14:18:50 Reading Location: [place] [id number] [facility] Body Reading Room Performing Organization Address City/State/Zipcode Phone Number GE [facility] XR chest PA or AP 1 view in dept (07/10/2018 11:01 AM CDT) Specimen Narrative Performed At FINAL REPORT [facility] AP chest HISTORY: Cough. COMPARISON: 06/17/2018. IMPRESSION: Tracheostomy tube present. Heart size normal. Lungs clear without effusion or pneumothorax. Intact skeleton. Signed: Ashok Whitaker MD Report Verified Date/Time:07/10/2018 11:03:24 Reading Location: [address] Radiology Reading Room Procedure Note Interface, External Ris In - 07/10/2018 11:05 AM CDT FINAL REPORT AP chest HISTORY: Cough. COMPARISON: 06/17/2018. IMPRESSION: Tracheostomy tube present. Heart size normal. Lungs clear without effusion or pneumothorax. Intact skeleton. Signed: Ashok Whitaker MD Report Verified Date/Time: 07/10/2018 11:03:24 Reading Location: [address] Radiology Reading Room Performing Organization Address City/State/Zipcode Phone Number [facility] Comprehensive metabolic panel (07/10/2018 10:13 AM CDT)Only the most recent of2 resultswithin the time period is included. Protein, Total 7.2 6.0 - 8.3 gm/dL [facility] Albumin 3.9 3.5 - 5.0 g/dL [facility] Alkaline Phosphatase 98 40 - 150 U/L [facility] Total Bilirubin 0.4 0.2 - 1.2 mg/dL [facility] Sodium 141 136 - 145 meq/L [facility] Potassium 4.4 3.5 - 5.1 meq/L [facility] Chloride 109 (H) 98 - 107 meq/L [facility] CO2 24 22 - 29 meq/L [facility] BUN 14 7 - 21 mg/dL [facility] Creatinine 0.78 0.57 - 1.25 mg/dL [facility] Glucose 107 (H) 70 - 105 mg/dL [facility] Calcium 9.4 8.4 - 10.2 mg/dL [facility] AST 17 5 - 34 U/L [facility] ALT 17 6 - 55 U/L [facility] EGFR 106Comment: ESTIMATED mL/min/1.73 sq m [facility] GFR IS NOT ACCURATE [facility] CREATININE CLEARANCE IN PREDICTING GLOMERULAR FILTRATION RATE. ESTIMATED GFR IS NOT APPLICABLE FOR DIALYSIS PATIENTS. Specimen Blood Performing Organization Address City/State/Zipcode Phone Number [address] [address] CENTER Blood Culture - Routine (Right Venipuncture) (06/18/2018 2:31 PM CDT)Only the most recent of6 resultswithin the time period is included. Result No growth in 5 days [facility] Specimen Blood Performing Organization Address [facility] Phone Number [address] [address] [phone] CENTER Vancomycin level, random (06/18/2018 10:48 AM CDT)Only the most recent of2 resultswithin the time period is included. Vancomycin Rm 1.3 ug/mL [facility] Specimen Blood Narrative Performed At Reference Range: No Normals [facility] Performing Organization Address [facility] Phone Number [address] [address] [place] Procalcitonin (06/17/2018 1:20 PM CDT) Procalcitonin 0.08 (H) <0.05 ng/mL [facility] Specimen Blood Narrative Performed At SEPSIS RISK (ng/mL) [facility] Low:0.05-0.50 Intermediate: 0.51-2.00 High: >=2.01 Performing Organization Address [facility] Phone Number [address] [address] CENTER Lactic acid, venous (06/17/2018 1:20 PM CDT) Lactate, Venous 2.4 (H)Comment: Specimen 0.5 - 2.2 mmol/L [facility] slightly hemolyzed [facility] Specimen Blood Performing Organization Address City/State/Zipcode Phone Number [facility] [address] [place] [address] [phone] CENTER PERIPHERAL VASCULAR REPORT - SCAN (06/16/2018 9:10 PM CDT) Narrative Performed At CT chest for pulmonary embolus (06/16/2018 9:30 AM CDT) Specimen Narrative Performed At FINAL REPORT [facility] CT Chest with contrast (PE protocol) History: Shortness of breath Comparison: 06/12/2018 Technique: serial axial imaging was performed following up to 100cc of non ionic iodinated intravenous contrast as per departmental protocol.Multiplanar, and maximum intensity projection images are reconstructed and reviewed. This CT examination is performed using one or more of the following dose reduction techniques: Automated exposure control, adjustment of the mA and /or kV according to patient size, and/or use of iterative reconstruction technique. Findings: Tracheostomy tube in satisfactory position. No mediastinal or hilar lymphadenopathy. Normal size heart.No pericardial effusion. No thoracic aortic aneurysm or dissection. No pulmonary arterial filling defect. Patent central airways.No pneumothorax. Trace right pleural effusion.Interval development of airspace disease within the bilateral lower lobes as well as the dependent portions of the right middle lobe and left upper lobe. No significant findings in the partially imaged abdomen. No aggressive osseous lesion. Impression: 1. No evidence of pulmonary embolus. 2. Interval development of airspace disease within the bilateral lower lobes as well as the dependent portions of the right middle lobe and left upper lobe. The findings are suspicious for aspiration pneumonitis or multifocal pneumonia. Signed: Burt Colunga MD Report Verified Date/Time:06/16/2018 09:53:01 Reading Location: [facility] Diagnostic Imaging Reading Room - [place] [address] Procedure Note Interface, External Ris In - 06/16/2018 9:55 AM CDT FINAL REPORT CT Chest with contrast (PE protocol) History: Shortness of breath Comparison: 06/12/2018 Technique: serial axial imaging was performed following up to 100cc of non ionic iodinated intravenous contrast as per departmental protocol. Multiplanar, and maximum intensity projection images are reconstructed and reviewed. This CT examination is performed using one or more of the following dose reduction techniques: Automated exposure control, adjustment of the mA and /or kV according to patient size, and/or use of iterative reconstruction technique. Findings: Tracheostomy tube in satisfactory position. No mediastinal or hilar lymphadenopathy. Normal size heart. No pericardial effusion. No thoracic aortic aneurysm or dissection. No pulmonary arterial filling defect. Patent central airways. No pneumothorax. Trace right pleural effusion. Interval development of airspace disease within the bilateral lower lobes as well as the dependent portions of the right middle lobe and left upper lobe. No significant findings in the partially imaged abdomen. No aggressive osseous lesion. Impression: 1. No evidence of pulmonary embolus. 2. Interval development of airspace disease within the bilateral lower lobes as well as the dependent portions of the right middle lobe and left upper lobe. The findings are suspicious for aspiration pneumonitis or multifocal pneumonia. Signed: Burt Colunga MD Report Verified Date/Time: 06/16/2018 09:53:01 Reading Location: [facility] Diagnostic Imaging Reading Room - [place] [address] Performing Organization Address City/State/Zipcode Phone Number [employer] ECHOCARDIOGRAM REPORT - SCAN (06/15/2018 9:10 PM CDT) Narrative Performed At Venous doppler legs bilateral (06/15/2018 1:55 PM CDT) Ejection Fraction [facility] ECHO HEARTLAB [facility] Specimen Impressions Performed At Right Impression [facility] ECHO HEARTLAB [facility] 1. There is no deep venous obstruction in the common femoral, profunda femoral, femoral, popliteal, posterior tibial or peroneal veins. 2. There is no superficial venous obstruction in the great saphenous vein. Left Impression 1. There is no deep venous obstruction in the common femoral, profunda femoral, femoral, popliteal, posterior tibial or peroneal veins. 2. There is no superficial venous obstruction in the great saphenous vein. Conclusions Summary Venous duplex imaging and compression of the bilateral lower extremities were performed. The veins were adequately visualized. The bilateral venous systems were patent and compressible with no evidence of thrombus. The venous Doppler waveforms were phasic with respiration . Signature Velocities are measured in cm/s ; Diameters are measured in cm Narrative Performed At LAB - Lower Extremities DVT Study [facility] ECHO HEARTLAB [facility] Demographics Patient JIMMIE DillDate of Study 06/15/2018 PAM 47 Visit [id number] Male of 1970 Referring Veronica Hernandez Room Number [id number] Physician Vel Dry Cleaner Helper Ron France S Physician Procedure Type of Study: Veins: Lower Extremities DVT Study, VENOUS DOPPLER LEG, BILATERAL. Indications for Study:Shortness of breath and ? DVT. Patient Status:STAT. Study Location:Portable. Technical Quality:Adequate visualization. Risk Factors History of Disease + + + + !Diagnosis!Date!Co mments ! 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 !Factors: !!Laryngeal mass ! + + + + Procedure Note Interface, External Ris In - 06/16/2018 8:22 AM CDT PV LAB - Lower Extremities DVT Study Demographics Patient Name JIMMIE PUGH Date of Study 06/15/2018 PAM Age 47 Visit Number [id number] Gender Male Accession Number [id number] Date of 1970 Referring Veronica Hernandez Room Number [id number] Physician Vel Dry Cleaner Helper Ron Gutierrez Interpreting Keerthi France S Physician Procedure Type of Study: Veins: Lower Extremities DVT Study, VENOUS DOPPLER LEG, BILATERAL. Indications for Study:Shortness of breath and ? DVT. Patient Status:STAT. Study Location:Portable. Technical Quality:Adequate visualization. Risk Factors History of Disease + + + + !Diagnosis !Date !Comments ! 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 !Factors: ! !Laryngeal mass ! + + + + Impressions Right Impression 1. There is no deep venous obstruction in the common femoral, profunda femoral, femoral, popliteal, posterior tibial or peroneal veins. 2. There is no superficial venous obstruction in the great saphenous vein. Left Impression 1. There is no deep venous obstruction in the common femoral, profunda femoral, femoral, popliteal, posterior tibial or peroneal veins. 2. There is no superficial venous obstruction in the great saphenous vein. Conclusions Summary Venous duplex imaging and compression of the bilateral lower extremities were performed. The veins were adequately visualized. The bilateral venous systems were patent and compressible with no evidence of thrombus. The venous Doppler waveforms were phasic with respiration . Signature Velocities are measured in cm/s ; Diameters are measured in cm Performing Organization Address City/State/Zipcode Phone Number [facility] Fast PCR Diagnostics [facility] 2D Echo W/Doppler(CW/PW/Color) (06/15/2018 12:11 PM CDT) Ejection Fraction [facility] Specimen Narrative Performed At Transthoracic Echocardiography Report (TTE) [facility] Fast [facility] Diagnostics [facility] Demographics Patient Name Haven PUGH of Study 06/15/2018 PAM [id number] GenderMale Visit Number [id number] Unknown [id number] Room Number [id number] Number Date of Birth1970Referring Physician Veronica Crowder Age47 year(s)Dry Cleaner Helper Javy Stroud, Physician Procedure Type of Study TTE procedure:2DECHO W DOPPLER(CW/PW/COLOR) Indications:Dyspnea/SOB. Clinical History CANCER,THYROID DISEASE Height: 72 inches Weight: 94.35 kg (208 lbs) BSA: 2.17 m^2 BMI: 28.21 kg/m^2 HR: 90 bpm BP: 122/84 mmHg Summary All of the LV segments contract normally . Global LV systolic function normal . LVEF by Palmer's method of disk assessment is normal (55-60%) . No significant pericardial effusion is visualized. Unable to estimate peak systolic PA pressure; inadequate TR velocity signal. The right ventricular chamber size and systolic function are within normal limits. Previous Study No prior exam available for comparison. Signature Findings Rhythm/BPRegular sinus rhythm during the exam. Left Ventricle The left ventricle is chamber size (by PSLAX di mension) is normal (male - LVIDd 4.2-5.8cm) . No rmal LV wall thickness. All of the LV segments co ntract normally . Global LV systolic function no rmal . LVEF by Palmer's method of disk as sessment is normal (55-60%) . The LVEF was me asured using Palmer's bi-plane method of disk . No rmal (cardiac index 2-3 L/min/m2) cardiac output st ate at rest is noted. Normal diastolic function. Left AtriumLA size is normal (16-34 ml/m2) . Right VentricleThe right ventricular chamber size and systolic fu nction are within normal limits. Right Atrium RA cavity size is normal . Aortic Valve Mild AoV cusp thickening. Ao V cusp mobility is normal . Mitral Valve Mild mitral annular calcification. Tricuspid ValveTV structure is normal. Un able to estimate peak systolic PA pressure; in adequate TR velocity signal. Pulmonic Valve Normal PV structure and function by limited views an d Doppler. AortaAortic root size (SInus of Valsalva diameter) is no rmal . PericardiumNo significant pericardial effusion is visualized. IVC/SVC/PA/PV/PleuralThe right upper pulmonary vein (RUPV) is normal . Th e estimated RA pressure by IVC dynamics 5mmHg . Chambers/Structures Left Atrium LA Volume: 50.21 ml LA Area: 18.62 cm^2 LA Vol. Index: 23 ml/m^2 Left Ventricle LVIDd: 5.06 cm LV Septum Diastolic: 0.75 cm LV PW Diastolic: 0.89 cm LVEDV Palmer's:140.98 ml LVESV Palmer's:59.57 ml LVEF Palmer's: 57.7 %LVEDV I: 65 ml/m^2 LVESVI: 27 ml/m^2 LVOT Diameter: 2.03 cm Right Atrium RA Vol. (Sngl Plane): 46.83 ml Aorta Ao Root S of Monique.: 3.29 cm Doppler/Quantitative Measurements Mitral Valve MV Peak E-Wave: 0.73 m/sMV Peak A-Wave: 0.66 m/s E/A Ratio: 1.11 Peak Gradient: 2.16 mmHg Deceleration Time: 196.6 msec MV Cash. Peak: Tissue Doppler E' Lateral Velocity: 0.11 m/s E/E': 6.97 Aortic Valve Peak Velocity: 1.49 m/sMean Velocity: 1.1 m/s Peak Gradient: 8.93 mmHg Mean Gradient: 5.43 mmHg AV Area (continuity): 2.95 cm^2 AV VTI: 22.11 cm AV DVI: 0.91 LVOT Peak Velocity: 1.23 m/s Peak Gradient: 6.01 mmHg Mean Velocity: 0.82 m/s Mean Gradient: 3.15 mmHg LVOT Diameter: 2.03 cmLVOT VTI: 20.19 cm LVOT Area: 3.24 cm^2LVOT SV:65.31 ml LVOT CO: 5.88 l/min LVOT CI: 2.71 l/min/m^2 Procedure Note Interface, External Ris In - 06/15/2018 4:00 PM CDT Transthoracic Echocardiography Report (TTE) Demographics Patient Name JIMMIE PUGH Date of Study 06/15/2018 PAM Gender Male Visit Number [id number] Race Unknown Room Number 7409 Number Date of 1970 Referring Physician Veronica Crowder Age 47 year(s) Dry Cleaner Helper Javy [place] [employer]nc Supervisor Silvino Brown Interpreting Physician STORM Alvarez Procedure Type of Study TTE procedure:2DECHO W DOPPLER(CW/PW/COLOR) Indications:Dyspnea/SOB. Clinical History CANCER,THYROID DISEASE Height: 72 inches Weight: 94.35 kg (208 lbs) BSA: 2.17 m^2 BMI: 28.21 kg/m^2 HR: 90 bpm BP: 122/84 mmHg Summary All of the LV segments contract normally . Global LV systolic function normal . LVEF by Palmer's method of disk assessment is normal (55-60%) . No significant pericardial effusion is visualized. Unable to estimate peak systolic PA pressure; inadequate TR velocity signal. The right ventricular chamber size and systolic function are within normal limits. Previous Study No prior exam available for comparison. Signature Findings Rhythm/BP Regular sinus rhythm during the exam. Left Ventricle The left ventricle is chamber size (by PSLAX dimension) is normal (male - LVIDd 4.2-5.8cm) . Normal LV wall thickness. All of the LV segments contract normally . Global LV systolic function normal . LVEF by Palmer's method of disk assessment is normal (55-60%) . The LVEF was measured using Palmer's bi-plane method of disk . Normal (cardiac index 2-3 L/min/m2) cardiac output state at rest is noted. Normal diastolic function. Left Atrium LA size is normal (16-34 ml/m2) . Right Ventricle The right ventricular chamber size and systolic function are within normal limits. Right Atrium RA cavity size is normal . Aortic Valve Mild AoV cusp thickening. AoV cusp mobility is normal . Mitral Valve Mild mitral annular calcification. Tricuspid Valve TV structure is normal. Unable to estimate peak systolic PA pressure; inadequate TR velocity signal. Pulmonic Valve Normal PV structure and function by limited views and Doppler. Aorta Aortic root size (SInus of Valsalva diameter) is normal . Pericardium No significant pericardial effusion is visualized. IVC/SVC/PA/PV/Pleural The right upper pulmonary vein (RUPV) is normal . The estimated RA pressure by IVC dynamics 5mmHg . Chambers/Structures Left Atrium LA Volume: 50.21 ml LA Area: 18.62 cm^2 LA Vol. Index: 23 ml/m^2 Left Ventricle LVIDd: 5.06 cm LV Septum Diastolic: 0.75 cm LV PW Diastolic: 0.89 cm LVEDV Palmer's:140.98 ml LVESV Palmer's:59.57 ml LVEF Palmer's: 57.7 % LVEDVI: 65 ml/m^2 LVESVI: 27 ml/m^2 LVOT Diameter: 2.03 cm Right Atrium RA Vol. (Sngl Plane): 46.83 ml Aorta Ao Root S of Monique.: 3.29 cm Doppler/Quantitative Measurements Mitral Valve MV Peak E-Wave: 0.73 m/s MV Peak A-Wave: 0.66 m/s E/A Ratio: 1.11 Peak Gradient: 2.16 mmHg Deceleration Time: 196.6 msec MV Cash. Peak: Tissue Doppler E' Lateral Velocity: 0.11 m/s E/E': 6.97 Aortic Valve Peak Velocity: 1.49 m/s Mean Velocity: 1.1 m/s Peak Gradient: 8.93 mmHg Mean Gradient: 5.43 mmHg AV Area (continuity): 2.95 cm^2 AV VTI: 22.11 cm AV DVI: 0.91 LVOT Peak Velocity: 1.23 m/s Peak Gradient: 6.01 mmHg Mean Velocity: 0.82 m/s Mean Gradient: 3.15 mmHg LVOT Diameter: 2.03 cm LVOT VTI: 20.19 cm LVOT Area: 3.24 cm^2 LVOT SV:65.31 ml LVOT CO: 5.88 l/min LVOT CI: 2.71 l/min/m^2 Performing Organization Address [facility] Phone Number [facility] ECHO [facility]ART[facility] D-dimer (06/15/2018 9:00 AM CDT) D-Dimer, Quant 1.59 (H) <0.50 MG/L FEU [facility] Specimen Blood Narrative Performed At Intended Use: The D-Dimer Assay can be used [facility] to aid in the diagnosis of Deep Vein Thrombosis (DVT) and Pulmonary Embolism Disease (PED). In patients with low pre-test probability, various studies concerning STA Liatest D-dimer test have reported that with a cutoff value of 0.50 MG/L FEU, the Negative Predictive Value (NPV) regarding the exclusion of thrombosis is within 95-100% range. Performing Organization Address [facility] Phone Number [address] [address] [phone] [place] B-type Natriuretic Factor (BNP) (06/15/2018 9:00 AM CDT) BNP 66 0 - 100 pg/mL [facility] Specimen Blood Performing Organization Address [facility] Phone Number [address] [address] [phone] [place] RESPIRATORY PANEL [facility] (06/15/2018 8:57 AM CDT) Human Metapneumovirus Not detected Not detected, [facility] Rhinovirus Not detected Not detected, [facility] Influenza A Not detected Not detected, [facility] INFLUENZA A (NO SUBTYPE) Not detected, [facility] Influenza A subtype H1 Not detected, [facility] Influenza A Subtype H3 Not detected, [facility] Influenza A Subtype Not detected, [facility] H1-2009 Equivocal [facility] Influenza B Not detected Not detected, [facility] Respiratory Syncytial Not detected Not detected, [facility] Virus [employer] [facility] Parainfluenza Virus 1 Not detected Not detected, [facility] Parainfluenza Virus 2 Not detected Not detected, [facility] Parainfluenza virus 3 Not detected Not detected, [facility] Parainfluenza Virus 4 Not detected Not detected, [facility] Adenovirus Not detected Not detected, [facility] Coronavirus 229E Detected Not detected, [facility] (A)Comment: Droplet [facility] isolation. Consider stopping antibiotics. Coronavirus HKU1 Not detected Not detected, [facility] Coronavirus NL63 Not detected Not detected, [facility] Coronavirus OC43 Not detected Not detected, [facility] Bordetella Pertussis Not detected Not detected, [facility] Chlamydophila Pneumoniae Not detected Not detected, [facility] Mycoplasma Pneumoniae Not detected Not detected, [facility] Specimen Nasopharyngeal Narrative Performed At Other viruses and bacteria not targeted by [facility] this PCR panel cannot be excluded; therefore clinical correlation and follow up of serology, culture results, and other molecular studies is required. The results are not intended to be used as the sole means for clinical diagnosis or patient management decisions. This sample was tested at the [facility]ostics Laboratory using the [employer] Respiratory Panel. It is FDA cleared and has been verified and approved by the [facility] for clinical use on nasal swab specimens. It is not FDA-cleared for use on bronchial wash/lavage samples. However, for this sample type, validation was performed and test characteristics were determined and approved, by [facility]ostics laboratory for clinical use under the Clinical Laboratory Improvement Amendments (CLIA) of 1988 requirements. Therefore, FDA clearance is not required.This laboratory is CLIA-certified and [employer] [place] (CAP)-accredited to perform high complexity testing. Performing Organization Address City/[facility] Cent[facility]ode Phone Number [address] [address] [place] Fibrinogen (06/15/2018 8:40 AM CDT) Fibrinogen 621 (H) 225 - 434 mg/dl [facility] Specimen Blood Performing Organization Address [facility] Phone Number [address] [address] [place] Lactic Acid, Arterial (06/15/2018 8:21 AM CDT) Lactate, Art 0.8Comment: Specimen 0.5 - 2.2 mmol/L [facility] slightly hemolyzed [facility] Specimen Blood, Arterial Performing Organization Address [facility] Phone Number [address] [address] [place] POC-Lactic Acid, Venous (06/15/2018 4:26 AM CDT) POC-Lactic Acid, Venous 1.1Comment: TESTED AT 0.9 - 1.7 mmol/L [address] [address] Specimen Blood Performing Organization Address [facility] Cent[facility] Phone Number [address] [address] CENTER aPTT (06/13/2018 3:34 AM CDT)Only the most recent of5 resultswithin the time period is included. PTT 27.4 22.5 - 36.0 seconds [facility] Specimen Blood Performing Organization Address [facility] Centercode Phone Number [address] [address] [phone] [place] Prothrombin time/INR (06/13/2018 3:34 AM CDT)Only the most recent of5 resultswithin the time period is included. Protime 13.8 11.7 - 14.7 seconds [facility] INR 1.1 <=5.9 [facility] Specimen Blood Narrative Performed At RECOMMENDED COUMADIN/WARFARIN INR THERAPY [facility] RANGES STANDARD DOSE: 2.0 - 3.0 Includes: PROPHYLAXIS for venous thrombosis, systemic embolization; TREATMENT for venous thrombosis and/or pulmonary embolus. HIGH RISK: Target INR is 2.5-3.5 for patients with mechanical heart valves. Performing Organization Address City/State/Zipcode Phone Number [facility] [address] [place] [address] [place] [address] chest with IV contrast (06/12/2018 9:32 AM CDT) Specimen Narrative Performed At FINAL REPORT [employer] INDICATION: Cancer surveillance. Report of laryngeal mass. COMPARISON: Chest radiograph June 12, 2018 TECHNIQUE: Chest CT exam WITH intravenous contrast. The exam was performed according to our department dose-optimization protocol, which includes automated exposure control, adjustments of mA and kV according to patient size. Iterative reconstructions are also sometimes employed. FINDINGS: There is no suspicious pulmonary nodule or mass. There is no pleural effusion or pleural nodularity. Tracheostomy tube is in good position. Central airways are clear. No pneumonia. Left medial base subsegmental atelectasis noted. Central pulmonary veins are engorged without interstitial pulmonary edema or cardiomegaly. No supraclavicular, axillary, mediastinal, or hilar lymphadenopathy is demonstrated. Thyroid gland, esophagus, and upper abdomen are unremarkable. Air in the left lateral chest wall subcutaneous fat presumably is from previously demonstrated left chest tube. Small amount of air anterior to the right subclavian vein presumably from prior line placement. Osseous structures unremarkable. IMPRESSION: No evidence of primary or secondary malignancy in the thorax. Signed: Randolph Man MD Report Verified Date/Time:06/12/2018 10:26:26 Reading Location: [facility] Diagnostic Imaging Reading Room - [place] [id number] Procedure Note Interface, External Ris In - 06/12/2018 10:28 AM CDT FINAL REPORT INDICATION: Cancer surveillance. Report of laryngeal mass. COMPARISON: Chest radiograph June 12, 2018 TECHNIQUE: Chest CT exam WITH intravenous contrast. The exam was performed according to our department dose-optimization protocol, which includes automated exposure control, adjustments of mA and kV according to patient size. Iterative reconstructions are also sometimes employed. FINDINGS: There is no suspicious pulmonary nodule or mass. There is no pleural effusion or pleural nodularity. Tracheostomy tube is in good position. Central airways are clear. No pneumonia. Left medial base subsegmental atelectasis noted. Central pulmonary veins are engorged without interstitial pulmonary edema or cardiomegaly. No supraclavicular, axillary, mediastinal, or hilar lymphadenopathy is demonstrated. Thyroid gland, esophagus, and upper abdomen are unremarkable. Air in the left lateral chest wall subcutaneous fat presumably is from previously demonstrated left chest tube. Small amount of air anterior to the right subclavian vein presumably from prior line placement. Osseous structures unremarkable. IMPRESSION: No evidence of primary or secondary malignancy in the thorax. Signed: Randolph Man MD Report Verified Date/Time: 06/12/2018 10:26:26 Reading Location: [facility] Diagnostic Imaging Reading Room - [place] [address] Performing Organization Address City/State/Zipcode Phone Number [employer] CT neck soft tissue with IV contrast (06/12/2018 9:32 AM CDT) Specimen Narrative Performed At FINAL REPORT [employer] CT, SOFT TISSUE NECK, CONTRAST INDICATION:Cancer Surveillance COMPARISON: None currently available. TECHNIQUE: Noncontrast CT images of the cervical soft tissues. Multiplanar, orthogonal reformatted images were generated. DOSE REDUCTION: Dose modulation, iterative reconstruction, and/or weight-based adjustment of the mA/kV was utilized to reduce the radiation dose to as low as reasonably achievable. FINDINGS: Appropriate position of tracheostomy tube is in midline trachea without concerning/adverse postprocedural findings. Minimal edema is present in the hypopharynx at the level of the hyoid bone without mass lesion. There is asymmetry of the vocal folds, right greater than left without discernible deviation of the arytenoid cartilages. Vallecular volumes are asymmetric, slightly larger on the left. Air is diffuse edema in the supraglottic larynx without visible epiglottic enlargement. No pathologic adenopathy is present. Vascular enhancement is within normal limits. The thyroid gland is unremarkable. There is no acute osseous abnormality. Degenerative paranasal sinus thickening is noted. A right mastoid effusion is present. Included portions of the brain base are unremarkable. IMPRESSION: Evaluation of the laryngeal surface is somewhat limited by edema and the presence of tracheostomy. Tracheostomy position is appropriate. No adenopathy. Correlation preoperative imaging is recommended when/if such imaging is available. Signed: JR Paul Robert MD Report Verified Date/Time:06/12/2018 09:53:06 Reading Location: [facility] C013V Neuro Reading Room Procedure Note Interface, External Ris In - 06/12/2018 9:55 AM CDT FINAL REPORT CT, SOFT TISSUE NECK, CONTRAST INDICATION: Cancer Surveillance COMPARISON: None currently available. TECHNIQUE: Noncontrast CT images of the cervical soft tissues. Multiplanar, orthogonal reformatted images were generated. DOSE REDUCTION: Dose modulation, iterative reconstruction, and/or weight-based adjustment of the mA/kV was utilized to reduce the radiation dose to as low as reasonably achievable. FINDINGS: Appropriate position of tracheostomy tube is in midline trachea without concerning/adverse postprocedural findings. Minimal edema is present in the hypopharynx at the level of the hyoid bone without mass lesion. There is asymmetry of the vocal folds, right greater than left without discernible deviation of the arytenoid cartilages. Vallecular volumes are asymmetric, slightly larger on the left. Air is diffuse edema in the supraglottic larynx without visible epiglottic enlargement. No pathologic adenopathy is present. Vascular enhancement is within normal limits. The thyroid gland is unremarkable. There is no acute osseous abnormality. Degenerative paranasal sinus thickening is noted. A right mastoid effusion is present. Included portions of the brain base are unremarkable. IMPRESSION: Evaluation of the laryngeal surface is somewhat limited by edema and the presence of tracheostomy. Tracheostomy position is appropriate. No adenopathy. Correlation preoperative imaging is recommended when/if such imaging is available. Signed: JR Humberto, Jimmie INMAN Report Verified Date/Time: 06/12/2018 09:53:06 Reading Location: [facility] C013V Neuro Reading Room Performing Organization Address City/State/Zipcode Phone Number [facility] Blood gas, venous (06/10/2018 3:45 AM CDT) pH, Jorge 7.48 (H) 7.32 - 7.42 [facility] pCO2, Jorge 37 (L) 41 - 51 mmHg [facility] pO2, Jorge 94 (H) 25 - 40 mmHg [facility] O2 Sat, Jorge 97.7 (H) 40.0 - 70.0 % [facility] HCO3, Jorge 27 21 - 29 mmol/L [facility] Base Excess, Jorge 3.7 (H) -2.0 - 3.0 mmol/L [facility] Patient Temperature 37.0 C [facility] Specimen Blood Performing Organization Address City/[facility] Phone Number [address] [address] [phone] [place] Platelet count (06/09/2018 12:28 PM CDT) Platelets 203 150 - 450 K/CU MM [facility] Specimen Blood Performing Organization Address City/[facility] Phone Number [address] [address] CENTER Hemoglobin (06/09/2018 12:28 PM CDT) Hemoglobin 15.7 13.7 - 17.5 GM/DL [facility] Specimen Blood Performing Organization Address City/[facility]/Zipcode Phone Number [address] [address] [phone] CENTER after 08/28/2017 Advance Directives Patient has advance care planning documents, and code status on file. For more information, please contact:[place] [address] [place], [place] [phone] Code Status Date Activated Date Inactivated Comments Full Code 07/14/2018 6:16 PM 07/24/2018 1:33 PM This code status was determined by: Patient Full Code 07/10/2018 1:27 PM 07/14/2018 6:16 PM This code status was determined by: Patient Partial Code 06/17/2018 5:26 PM 06/21/2018 9:50 PM This code status was determined by: Patient Drug Protocol After Arrest Occurs? No Mechanical Ventilation with Intubation? No Bag/Mask? No Internal/External Pacemaker? No Transfer to Critical Care? Yes Chest Compressions? No Defibrillation/Cardioversion? No Full Code 06/17/2018 1:10 PM 06/17/2018 5:26 PM This code status was determined by: Patient Partial Code 06/17/2018 12:34 PM 06/17/2018 1:10 PM This code status was determined by: Patient Drug Protocol After Arrest Occurs? Yes Mechanical Ventilation with Intubation? No Bag/Mask? No Internal/External Pacemaker? No Transfer to Critical Care? Yes Chest Compressions? No Defibrillation/Cardioversion? No
--- OUTSIDE RECORDS SUMMARY | 2018-08-29 14:40 | XMS REPORT ---
[...] Dosage System Date Date BuPROPion HCl [facility] 18554284331 150 MG Orally Dec 16, Active 1 tablet ER (Smoking Once a day 2018 in the Det) morning Xanax [facility] 13588183729 1 MG Orally Once Active 1 tablet a day Zofran ND 14196898528 8 MG Orally Active 1 tablet Twice a day PRN Hydrocodone-Ac ND 38120165404 10-325 MG Orally Active 1 tablet etaminophen every 6 hrs as needed Results No Known Results Summary Purpose eClinicalWorks Submission
--- OUTSIDE RECORDS SUMMARY | 2018-08-29 14:40 | XMS REPORT ---
[...] End Status Dosage System Date Date Hydrocodone-Acet [facility] 24625409000 10-325 MG Active 1 tablet aminophen Orally every 6 as needed hrs Citalopram [facility] 56281844463 20 MG Orally Active 1 tablet Hydrobromide Once a day Xanax [facility] [address]-83 1 MG Orally Active 1 tablet Once a day Zofran [facility] [address]-89 8 MG Orally Active 1 tablet Twice a day PRN Results No Known Results Summary Purpose eClinicalWorks Submission
--- OUTSIDE RECORDS SUMMARY | 2018-08-29 14:40 | XMS REPORT ---
[...] Status Dosage System Date Date BuPROPion HCl [facility] 40533920057 150 MG Orally Dec 16, Active 1 tablet ER (Smoking Once a day 2018 in the Det) morning Xanax [facility] 43905723723 1 MG Orally Active 1 tablet Once a day Zofran ND 40349776955 8 MG Orally Active 1 tablet Twice a day PRN Hydrocodone-Ari ND 80027366899 10-325 MG Active 1 tablet taminophen Orally every 6 as needed hrs Citalopram ND 52002324896 20 MG Orally Inactive 1 tablet Hydrobromide Once a day Results No Known Results Summary Purpose eClinicalWorks Submission
--- OUTSIDE RECORDS SUMMARY | 2018-08-29 14:44 | XMS REPORT ---
:1970 [facility] [address] [place] [address] [address] [place] [address] Care Team Providers Name Role Phone JENNIFER FRAIRE Unavailable Unavailable SMITA REID FRANCOIS Unavailable Unavailable MELVIN HUERTA Unavailable Unavailable Problems This patient has no known problems. Allergies, Adverse Reactions, Alerts This patient has no known allergies or adverse reactions. Medications This patient has no known medications. Results Test Description Test Time Test Comments Text Results Atomic Results Result Comments CREATININE 2018-08-15 07:31:00 Test Item Value Reference Range Comments CREATININE (BEAKER) (test 0.63 mg/dL 0.57-1.25 iafx=098) EGFR (BEAKER) (test 136 mL/min/1.73 sq m ESTIMATED GFR IS NOT bhoo=1713) ACCURATE CREATININE CLEARANCE IN PREDICTING GLOMERULAR FILTRATION RATE. ESTIMATED GFR IS NOT APPLICABLE FOR DIALYSIS PATIENTS. WOUND CULTURE + GRAM [id number] 16:32:00 Test Item Value Reference Range Comments CULTURE (BEAKER) (test No growth jyoc=7205) GRAM STAIN RESULT (BEAKER) 2+ WBCs (test ssgx=6981) GRAM STAIN RESULT (BEAKER) 1+ gram positive cocci in (test jutg=82900) pairs GRAM STAIN RESULT (BEAKER) <1+ gram variable rods (test xxyy=50888) VANCOMYCIN LEVEL, [id number] 23:37:00 Test Item Value Reference Range Comments VANCOMYCIN TROUGH (BEAKER) (test rruu=133) 7.5 ug/mL 10.0-20.0 FL, ESOPH, SWALLOW FUNCTION, WITH CINE OR [id number] 18:19:00Cervical esophagram with GASTROGAFFINReason for exam:->status post larygnectomyFINAL REPORT Esophagram. HISTORY: Status post laryngectomy. COMPARISON STUDY:June 17, 2018. FINDINGS: A single contrast Gastrografin esophagram was performed. Post surgical changes are seen related to laryngectomy. The swallowing mechanism is normal with no evidence of aspiration seen. No evidence of extraluminal contrast extravasation is seen. No stricture is identified. There is no significant esophageal dysmotility. IMPRESSION:1. Status post laryngectomy with no evidence of extraluminal contrast extravasation. Fluoroscopy time: 0.65 minutes. 46 images. Signed: Gaudencio Barrett MDReport Verified Date/Time: 08/12/2018 18:19:29 Reading Location: [place] [id number] [facility] Consult Reading Room CBC W/PLT COUNT & AUTO [id number] 04: 39:00 Test Item Value Reference Range Comments WHITE BLOOD CELL COUNT (BEAKER) (test klre=849) 7.1 K/ L 3.5-10.5 RED BLOOD CELL COUNT (BEAKER) (test wffv=409) 3.77 M/ L 4.63-6.08 HEMOGLOBIN (BEAKER) (test xcly=806) 10.9 GM/DL 13.7-17.5 HEMATOCRIT (BEAKER) (test varb=998) 35.7 % 40.1-51.0 MEAN CORPUSCULAR VOLUME (BEAKER) (test javr=520) 94.7 fL 79.0-92.2 MEAN CORPUSCULAR HEMOGLOBIN (BEAKER) (test 28.9 pg 25.7-32.2 njxy=664) MEAN CORPUSCULAR HEMOGLOBIN CONC (BEAKER) (test 30.5 GM/DL 32.3-36.5 tqhc=691) RED CELL DISTRIBUTION WIDTH (BEAKER) (test 14.6 % 11.6-14.4 cxwl=827) PLATELET COUNT (BEAKER) (test noxz=732) 318 K/CU MM 150-450 MEAN PLATELET VOLUME (BEAKER) (test xfhe=792) 9.8 fL 9.4-12.4 NUCLEATED RED BLOOD CELLS (BEAKER) (test 0 /100 WBC 0-0 iubx=754) NEUTROPHILS RELATIVE PERCENT (BEAKER) (test 72 % pbfp=493) LYMPHOCYTES RELATIVE PERCENT (BEAKER) (test 10 % cndf=813) MONOCYTES RELATIVE PERCENT (BEAKER) (test 12 % tuen=024) EOSINOPHILS RELATIVE PERCENT (BEAKER) (test 4 % rysl=821) BASOPHILS RELATIVE PERCENT (BEAKER) (test 1 % ddst=921) NEUTROPHILS ABSOLUTE COUNT (BEAKER) (test 5.08 K/ L 1.78-5.38 yuwr=598) LYMPHOCYTES ABSOLUTE COUNT (BEAKER) (test 0.68 K/ L 1.32-3.57 fgif=189) MONOCYTES ABSOLUTE COUNT (BEAKER) (test 0.86 K/ L 0.30-0.82 ntoa=698) EOSINOPHILS ABSOLUTE COUNT (BEAKER) (test 0.29 K/ L 0.04-0.54 nwnv=063) BASOPHILS ABSOLUTE COUNT (BEAKER) (test 0.04 K/ L 0.01-0.08 youm=435) IMMATURE GRANULOCYTES-RELATIVE PERCENT (BEAKER) 1 % 0-1 (test cspg=1280) TSH/FREE T4 IF [id number] 18:11:00 Test Item Value Reference Range Comments THYROID STIMULATING HORMONE (BEAKER) (test 0.75 uIU/mL 0.35-4.94 vhvc=458) CBC W/PLT COUNT & AUTO [id number] 17:31:00 Test Item Value Reference Range Comments WHITE BLOOD CELL COUNT (BEAKER) (test drds=678) 9.2 K/ L 3.5-10.5 RED BLOOD CELL COUNT (BEAKER) (test oaes=421) 3.78 M/ L 4.63-6.08 HEMOGLOBIN (BEAKER) (test nrfz=574) 11.0 GM/DL 13.7-17.5 HEMATOCRIT (BEAKER) (test siew=153) 35.4 % 40.1-51.0 MEAN CORPUSCULAR VOLUME (BEAKER) (test owhw=500) 93.7 fL 79.0-92.2 MEAN CORPUSCULAR HEMOGLOBIN (BEAKER) (test 29.1 pg 25.7-32.2 gwxg=288) MEAN CORPUSCULAR HEMOGLOBIN CONC (BEAKER) (test 31.1 GM/DL 32.3-36.5 ghgr=007) RED CELL DISTRIBUTION WIDTH (BEAKER) (test 14.7 % 11.6-14.4 sfjp=864) PLATELET COUNT (BEAKER) (test csqw=416) 323 K/CU MM 150-450 MEAN PLATELET VOLUME (BEAKER) (test hlfr=756) 9.6 fL 9.4-12.4 NUCLEATED RED BLOOD CELLS (BEAKER) (test 0 /100 WBC 0-0 lelg=237) NEUTROPHILS RELATIVE PERCENT (BEAKER) (test 75 % jhhv=224) LYMPHOCYTES RELATIVE PERCENT (BEAKER) (test 9 % stfg=415) MONOCYTES RELATIVE PERCENT (BEAKER) (test 12 % vesi=309) EOSINOPHILS RELATIVE PERCENT (BEAKER) (test 3 % dahl=376) BASOPHILS RELATIVE PERCENT (BEAKER) (test 0 % wphx=047) NEUTROPHILS ABSOLUTE COUNT (BEAKER) (test 6.86 K/ L 1.78-5.38 crpb=877) LYMPHOCYTES ABSOLUTE COUNT (BEAKER) (test 0.81 K/ L 1.32-3.57 zltk=783) MONOCYTES ABSOLUTE COUNT (BEAKER) (test 1.13 K/ L 0.30-0.82 omtz=828) EOSINOPHILS ABSOLUTE COUNT (BEAKER) (test 0.24 K/ L 0.04-0.54 bxpj=036) BASOPHILS ABSOLUTE COUNT (BEAKER) (test 0.04 K/ L 0.01-0.08 zzja=996) IMMATURE GRANULOCYTES-RELATIVE PERCENT (BEAKER) 1 % 0-1 (test xoil=0663) TISSUE [id number] 10:26:00Surgical Pathology Report Case: [id number] Authorizing Provider: Jennifer Fraire MD Collected: 07/14/2018 1023 Ordering Location: [facility] PERIOPERATIVE Received: 07/14/2018 1029 SERVICES Pathologist: Jackie Hardy MD Specimens: A) - Soft Tissue, Other, rule out left superior parathyroid B) -Soft Tissue, Other, NECK DISSECTION LEVEL 1A C) - Soft Tissue, Other, TOTAL LARYNGECTOMY; PLEASE CHECK TRACHEAL AND PHARYNGEAL MARGINS D) - Soft Tissue, Other, LEFT NECK DISSECTION LEVEL 2 A. PARATHYROID GLAND, LEFT SUPERIOR, BIOPSY: - PARATHYROID TISSUE IDENTIFIED - NO EVIDENCE OF MALIGNANCYB. LYMPH NODE, LEVEL 1A,SIDE UNSTATED, DISSECTION: - TWO BENIGN LYMPH NODES (0/2)C. LARYNX, TOTAL LARYNGECTOMY: - NO RESIDUAL CARCINOMA - ULCER AND FOCAL NECROTIC TISSUE, AND STATUS POST CHEMORADIATION RELATED CHANGES (SEECOMMENT) - LYMPH-VASCULAR INVASION: NOT IDENTIFIED - PERINEURAL INVASION: NOT IDENTIFIED - RESECTION MARGINS (ANTERIOR VALLECULAR MUCOSAL, RIGHT AND LEFT LATERAL PHARYNGEAL MUCOSAL, POSTERIOR CRICOID MUCOSAL, TRACHEOSTOMY SKIN, DISTAL TRACHEAL, RIGHT AND LEFT LATERAL SOFT TISSUE, AND ANTERIOR SOFT TISSUE) ALL NEGATIVE FOR CARCINOMA - SMALL PORTION OF THYROID TISSUE, NEGATIVE FOR CARCINOMAD. LYMPH NODE, LEFT LEVEL 2, DISSECTION: - TWO BENIGN LYMPH NODES (0/2) Signing Pathologist Direct Phone Line: There is a detached piece of necrotic atypical squamous cells (section C18) involving left vocal cord. The focus measures 0.2 cm in greatest dimension. Underlying tissue shows ulceration and granulation tissue.LARYNX (SUPRAGLOTTIS, GLOTTIS, SUBGLOTTIS) (Larynx - All Specimens)SPECIMEN Procedure: Total laryngectomy TUMOR Tumor Site: Not specified Transglottic Extension: Not identified Tumor Laterality: Not specified Histologic Type: no residual carcinoma Histologic Grade: Not applicable Tumor Focality: Cannot be determined: no residual carcinoma Tumor Size: Cannot be determined: no residual carcinoma Tumor Extent: Tumor Extension: no reidual carcinoma Accessory Findings: Lymphovascular Invasion: Not identified Perineural Invasion: Not identified MARGINS Margins: Uninvolved by invasive tumor Distance from Closest Margin in Millimeters (mm): Cannot be determined: no reidual carcinoma Location of Closest Margin, per Orientation: Cannot be determined: no reidual carcinoma Status of Non-Invasive Tumor at Margins: Uninvolved by high grade dysplasia / in situ disease Distance from Closest Margin in Millimeters (mm): Cannot be determined: no reidual carcinoma/dysplasia Location of Closest Margin, per Orientation: Cannot be determined: no reidual carcinoma LYMPH NODES : Number Involved: 0 Number of Lymph Nodes Examined: 4 PATHOLOGIC STAGE CLASSIFICATION (pTNM, AJCC 8th Edition) TNM Descriptors: y ( post-treatment) : Primary Tumor (pT): Primary tumor cannot be assessed Regional Lymph Nodes (pN): pN0 Distant Metastasis (pM): Not applicable- pM cannot be determined from the submitted specimen(s) 69968 X3 , 47888, 83828, 87189 X2, 58328 X 4, 33067 x1, 96586 x138-bufd-lfy 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 The specimen is received fresh for intraoperative consultation labeled with patient's name "CHELI", medical record number, and "rule out left superior parathyroid." It consists of a piece of paige-pink tissue measuring 0.4 x 0.3 x 0.2 cm. A touch preparation slide is made. The specimen is entirely embedded as FSA1 for frozen section diagnosis.B. The specimen is received in formalin labeled with patient's name "CHELI", medical record number, and "neck dissection level 1A." It consists of a piece of fibroadipose tissue measuring 3.1 x 3.0 x 1.0 cm. Serial sectioning reveals no lymph node grossly. The specimen is entirely submitted in cassettes B1 through B6.C. The specimen is received fresh for intraoperative consultation labeled with patient's name "CHELI", medical record number, and "total laryngectomy." It consists of the entire larynx (9.7 cm superior to inferior, 5.5 cm to medialto lateral, 5.0 cm to anterior to posterior) including hyoid bone, anterior strap muscle, and a rim of skin of previous tracheostomy (3.0 x 2.5 cm). The overall orientation of the specimen is explainedby the surgeon. Margins requested by the surgeon are taken and embedded as follows for frozen section diagnosis: FSC1 - distal tracheal en face margin; FSC2 - posterior cricoid mucosal margin; FSC3 - right lateral pharyngeal mucosal margin; FSC4 - left lateral pharyngeal mucosal margin ; FSC5 - anterior vallecular mucosal margin. The specimen is opened along the posterior wall of larynx, revealing edematous mucosa with a focal whitish discoloration (1.0 x 0.8 cm) around the left vocal cord area. No overt mass lesions are seen. The thyroid cartilage is ossified.After 24-hour formalin fixation and following decalcification, the specimen is serially sectioned longitudinally and reveals no gross mass lesion. [employer] Or Department sections are submitted as follows: C6 - right soft tissue en face margin; C7 - left soft tissue en face margin; C8 - anterior soft tissue en face margin; C9 and C10 - skin margin of tracheostomy; C11 through C25 - C11 through C13 - longitudinal sections of midline larynx; C14 through C16 and C17 through C19 - longitudinal sections of left larynx; C20 through C22 and C23 through C25 - longitudinal sections of right larynx; C26-C27 and C28-C29 - longitudinal sections of far rightlarynx.D. The specimen is received in formalin labeled with patient's name "CHELI", medical record number, and "left neck dissection level 2." It consists of a piece of fibroadipose tissue measuring 2.5x 1.5 x 0.6 cm. Serial sectioning reveals no lymph node grossly. The specimen is entirely submitted in cassettes D1 and D2.FSA. SOFT TISSUE, "RULE OUT LEFT SUPERIOR PARATHYROID," EXCISION: - PARATHYROID TISSUE IDENTIFIED - NO EVIDENCE OF MALIGNANCYVERBALLY REPORTED TO DR. FRAIRE BY DR. HARDY AT 10:45 AM ON 07/14/2018.FSC1-5. LARYNX, TOTAL LARYNGECTOMY:RESECTION MARGINS, ANTERIOR VALLECULAR MUCOSAL, RIGHT LATERAL PHARYNGEAL MUCOSAL, LEFT LATERAL PHARYNGEAL MUCOSAL, POSTERIOR CRICOID MUCOSAL, AND TRACHEAL, ALL NEGATIVE FOR CARCINOMAVERBALLY REPORTED TO DR. FRAIRE BY DR. HARDY AT 11:54 AM ON 07/14/2018. C. There is a detached piece of necrotic atypical squamous cells (section C18) in left vocal cord. Underlying tissue shows ulcer and granulation tissue. On C19, [place]-8 positivity confirms portion of thyroidtissue present. On C16, There is ulceration with underlying granulation tissue. Some atypical cells are noted in the soft tissue, favoring atypia related to radiation and chemo. The negativity of the P63 and AE1/AE3 confirms that no residual tumor cells, the atypical cells might be reactive fibroblasts.The interpretation of this case included the use of immunohistochemistry or special stains. Immunohistochemistry technical testing was performed at [facility], Pathology Laboratory where it was developed and its performance characteristics were determined. It has not been cleared or approved by the U.S. Food and Drug Administration. The FDA has determined that such clearance orapproval is not necessary. The test is used for clinical purposes. It should not be regarded as investigational or for research. This laboratory is certified under the Clinical Laboratory Improvement Amendments of 1988 (CLIA-88) as qualified to perform high complexity clinical laboratory testing.CBC W/PLT COUNT & AUTO [id number] 09:34:00 Test Item Value Reference Range Comments WHITE BLOOD CELL COUNT (BEAKER) (test xsrf=872) 10.8 K/ L 3.5-10.5 RED BLOOD CELL COUNT (BEAKER) (test wpas=966) 3.45 M/ L 4.63-6.08 HEMOGLOBIN (BEAKER) (test zsva=166) 10.2 GM/DL 13.7-17.5 HEMATOCRIT (BEAKER) (test fhhf=904) 34.1 % 40.1-51.0 MEAN CORPUSCULAR VOLUME (BEAKER) (test nfng=891) 98.8 fL 79.0-92.2 MEAN CORPUSCULAR HEMOGLOBIN (BEAKER) (test 29.6 pg 25.7-32.2 igae=710) MEAN CORPUSCULAR HEMOGLOBIN CONC (BEAKER) (test 29.9 GM/DL 32.3-36.5 rvib=178) RED CELL DISTRIBUTION WIDTH (BEAKER) (test 15.7 % 11.6-14.4 soax=472) PLATELET COUNT (BEAKER) (test deia=914) 522 K/CU MM 150-450 MEAN PLATELET VOLUME (BEAKER) (test ornf=892) 10.2 fL 9.4-12.4 NUCLEATED RED BLOOD CELLS (BEAKER) (test 0 /100 WBC 0-0 mdav=109) (CELLAVISION MANUAL DIFF)2018-07-24 09:34:00 Test Item Value Reference Range Comments NEUTROPHILS - REL (CELLAVISION)(BEAKER) (test 80 % tzxd=7632) LYMPHOCYTES - REL (CELLAVISION)(BEAKER) (test 2 % rshy=7385) MONOCYTES - REL (CELLAVISION)(BEAKER) (test 15 % evrr=6174) EOSINOPHILS - REL (CELLAVISION)(BEAKER) (test 3 % aelj=5398) NEUTROPHILS - ABS (CELLAVISION)(BEAKER) (test 8.64 K/ul 1.78-5.38 bdou=3089) LYMPHOCYTES - ABS (CELLAVISION)(BEAKER) (test 0.22 K/ul 1.32-3.57 clsq=3421) MONOCYTES - ABS (CELLAVISION)(BEAKER) (test 1.62 K/uL 0.30-0.82 walp=1697) EOSINOPHILS - ABS (CELLAVISION)(BEAKER) (test 0.32 K/uL 0.04-0.54 vsfc=7678) TOTAL COUNTED (BEAKER) (test adrc=8819) 100 WBC MORPHOLOGY (BEAKER) (test farr=132) Normal LARGE PLT(BEAKER) (test jrxg=4395) Present POLYCHROMATOPHILLIC RBCS(BEAKER) (test xxey=345) 1+ few ARTIFACT (CELLAVISION)(BEAKER) (test oltm=4170) Present PLATELET CONCENTRATION (CELLAVISION)(BEAKER) (test Increased gtsw=1094) Received comment: User comments: Slide comments:[id number] 05:40:00 Test Item Value Reference Range Comments PHOSPHORUS (BEAKER) (test ciqk=312) 4.8 mg/dL 2.3-4.7 [id number] 05:40:00 Test Item Value Reference Range Comments MAGNESIUM (BEAKER) (test hriv=626) 2.1 mg/dL 1.6-2.6 BASIC METABOLIC [id number] 05:40:00 Test Item Value Reference Range Comments SODIUM (BEAKER) (test 140 meq/L 136-145 livc=105) POTASSIUM (BEAKER) (test 4.0 meq/L 3.5-5.1 dtli=999) CHLORIDE (BEAKER) (test 99 meq/L 98-107 ezce=419) CO2 (BEAKER) (test 30 meq/L 22-29 snxa=552) BLOOD UREA NITROGEN 8 mg/dL 7-21 (BEAKER) (test ftrx=639) CREATININE (BEAKER) (test 0.71 mg/dL 0.57-1.25 ywyn=231) GLUCOSE RANDOM (BEAKER) 90 mg/dL 70-105 (test wodx=265) CALCIUM (BEAKER) (test 8.8 mg/dL 8.4-10.2 bqgz=644) EGFR (BEAKER) (test 118 mL/min/1.73 sq m ESTIMATED GFR IS NOT hlmy=3394) ACCURATE CREATININE CLEARANCE IN PREDICTING GLOMERULAR FILTRATION RATE. ESTIMATED GFR IS NOT APPLICABLE FOR DIALYSIS PATIENTS. CBC W/PLT COUNT & AUTO [id number] 11:50:00 Test Item Value Reference Range Comments WHITE BLOOD CELL COUNT (BEAKER) (test ufug=185) 13.2 K/ L 3.5-10.5 RED BLOOD CELL COUNT (BEAKER) (test oxxq=646) 3.41 M/ L 4.63-6.08 HEMOGLOBIN (BEAKER) (test iprn=289) 10.2 GM/DL 13.7-17.5 HEMATOCRIT (BEAKER) (test lsgk=597) 33.2 % 40.1-51.0 MEAN CORPUSCULAR VOLUME (BEAKER) (test hxky=431) 97.4 fL 79.0-92.2 MEAN CORPUSCULAR HEMOGLOBIN (BEAKER) (test 29.9 pg 25.7-32.2 xsrg=010) MEAN CORPUSCULAR HEMOGLOBIN CONC (BEAKER) (test 30.7 GM/DL 32.3-36.5 hutk=865) RED CELL DISTRIBUTION WIDTH (BEAKER) (test 15.5 % 11.6-14.4 xgxf=464) PLATELET COUNT (BEAKER) (test xmsd=330) 473 K/CU MM 150-450 MEAN PLATELET VOLUME (BEAKER) (test uldv=309) 10.0 fL 9.4-12.4 NUCLEATED RED BLOOD CELLS (BEAKER) (test 0 /100 WBC 0-0 bjnz=336) (CELLAVISION MANUAL DIFF)2018-07-23 11:50:00 Test Item Value Reference Range Comments NEUTROPHILS - REL (CELLAVISION)(BEAKER) (test 80 % fvgi=6204) LYMPHOCYTES - REL (CELLAVISION)(BEAKER) (test 8 % qftr=5572) MONOCYTES - REL (CELLAVISION)(BEAKER) (test 4 % hnmu=4939) EOSINOPHILS - REL (CELLAVISION)(BEAKER) (test 1 % fsqp=2905) MYELOCYTES - REL (CELLAVISION)(BEAKER) (test 2 % 0-0 slbe=4999) BANDS - REL (CELLAVISION)(BEAKER) (test 4 % 0-10 aooi=8974) NEUTROPHILS - ABS (CELLAVISION)(BEAKER) (test 10.56 K/ul 1.78-5.38 wzuq=1824) LYMPHOCYTES - ABS (CELLAVISION)(BEAKER) (test 1.06 K/ul 1.32-3.57 rlcy=0177) MONOCYTES - ABS (CELLAVISION)(BEAKER) (test 0.53 K/uL 0.30-0.82 evhh=9020) EOSINOPHILS - ABS (CELLAVISION)(BEAKER) (test 0.13 K/uL 0.04-0.54 omyy=7912) MYELOCYTES-ABS (CELLAVISION)(BEAKER) (test 0.26 K/uL 0.00-0.00 nsxv=9140) BANDS - ABS (CELLAVISION)(BEAKER) (test 0.53 K/uL 0.00-0.80 lpeg=9418) TOTAL COUNTED (BEAKER) (test skls=4947) 100 WBC MORPHOLOGY (BEAKER) (test sjfa=758) Normal PLT MORPHOLOGY (BEAKER) (test dmju=088) Normal ANISOCYTOSIS (BEAKER) (test sewf=730) 2+ moderate MICROCYTES (BEAKER) (test yiai=730) 1+ few ARTIFACT (CELLAVISION)(BEAKER) (test dyme=1412) Present PLATELET CONCENTRATION (CELLAVISION)(BEAKER) Increased (test mwhe=0072) Received comment: User comments: Slide comments:SPUTUM CULTURE + GRAM [id number] 10:46:00 Test Item Value Reference Range Comments CULTURE (BEAKER) (test <1+ Normal respiratory maximo inqu=9293) present GRAM STAIN RESULT (BEAKER) <1+ White blood cells seen (test qemm=3479) GRAM STAIN RESULT (BEAKER) 0-5 epithelial cells (test jihu=38308) GRAM STAIN RESULT (BEAKER) No organisms seen (test rjfd=28823) [id number] 06:07:00 Test Item Value Reference Range Comments PHOSPHORUS (BEAKER) (test ospn=238) 4.6 mg/dL 2.3-4.7 [id number] 06:07:00 Test Item Value Reference Range Comments MAGNESIUM (BEAKER) (test dpzv=628) 2.0 mg/dL 1.6-2.6 BASIC METABOLIC [id number] 06:07:00 Test Item Value Reference Range Comments SODIUM (BEAKER) (test 140 meq/L 136-145 csce=834) POTASSIUM (BEAKER) (test 4.3 meq/L 3.5-5.1 ircn=648) CHLORIDE (BEAKER) (test 101 meq/L 98-107 srbv=806) CO2 (BEAKER) (test 31 meq/L 22-29 vlrf=740) BLOOD UREA NITROGEN 10 mg/dL 7-21 (BEAKER) (test caeu=172) CREATININE (BEAKER) (test 0.67 mg/dL 0.57-1.25 buwy=152) GLUCOSE RANDOM (BEAKER) 111 mg/dL 70-105 (test ryih=275) CALCIUM (BEAKER) (test 8.7 mg/dL 8.4-10.2 nzyf=939) EGFR (BEAKER) (test 127 mL/min/1.73 sq m ESTIMATED GFR IS NOT rkbl=6991) ACCURATE CREATININE CLEARANCE IN PREDICTING GLOMERULAR FILTRATION RATE. ESTIMATED GFR IS NOT APPLICABLE FOR DIALYSIS PATIENTS. VANCOMYCIN LEVEL, [id number] 23:12:00 Test Item Value Reference Range Comments VANCOMYCIN TROUGH (BEAKER) (test yucv=387) 3.2 ug/mL 10.0-20.0 POCT-GLUCOSE [id number] 17:57:00 Test Item Value Reference Range Comments POC-GLUCOSE METER (BEAKER) 105 mg/dL 70-110 TESTED AT [address] (test qsza=4592) [facility] [address] CBC W/PLT COUNT & AUTO [id number] 13:00:00 Test Item Value Reference Range Comments WHITE BLOOD CELL COUNT (BEAKER) (test xjow=632) 12.5 K/ L 3.5-10.5 RED BLOOD CELL COUNT (BEAKER) (test atub=657) 3.46 M/ L 4.63-6.08 HEMOGLOBIN (BEAKER) (test dqhi=014) 10.4 GM/DL 13.7-17.5 HEMATOCRIT (BEAKER) (test zsin=326) 33.5 % 40.1-51.0 MEAN CORPUSCULAR VOLUME (BEAKER) (test pjyh=625) 96.8 fL 79.0-92.2 MEAN CORPUSCULAR HEMOGLOBIN (BEAKER) (test 30.1 pg 25.7-32.2 xngl=559) MEAN CORPUSCULAR HEMOGLOBIN CONC (BEAKER) (test 31.0 GM/DL 32.3-36.5 akob=678) RED CELL DISTRIBUTION WIDTH (BEAKER) (test 15.4 % 11.6-14.4 clua=313) PLATELET COUNT (BEAKER) (test nnqz=938) 425 K/CU MM 150-450 MEAN PLATELET VOLUME (BEAKER) (test sdmr=126) 10.1 fL 9.4-12.4 NUCLEATED RED BLOOD CELLS (BEAKER) (test 0 /100 WBC 0-0 vkls=760) (CELLAVISION MANUAL DIFF)2018-07-22 13:00:00 Test Item Value Reference Range Comments NEUTROPHILS - REL (CELLAVISION)(BEAKER) (test 80 % xxqm=0511) LYMPHOCYTES - REL (CELLAVISION)(BEAKER) (test 4 % bcmp=2605) MONOCYTES - REL (CELLAVISION)(BEAKER) (test 6 % vvrm=5253) EOSINOPHILS - REL (CELLAVISION)(BEAKER) (test 6 % drif=1638) BASOPHILS - REL (CELLAVISION)(BEAKER) (test 1 % vcec=9524) MYELOCYTES - REL (CELLAVISION)(BEAKER) (test 3 % 0-0 izfe=2682) NEUTROPHILS - ABS (CELLAVISION)(BEAKER) (test 10.00 K/ul 1.78-5.38 tbvm=0538) LYMPHOCYTES - ABS (CELLAVISION)(BEAKER) (test 0.50 K/ul 1.32-3.57 mkfx=3850) MONOCYTES - ABS (CELLAVISION)(BEAKER) (test 0.75 K/uL 0.30-0.82 aduw=5118) EOSINOPHILS - ABS (CELLAVISION)(BEAKER) (test 0.75 K/uL 0.04-0.54 pjpa=4209) BASOPHILS - ABS (CELLAVISION)(BEAKER) (test 0.13 K/uL 0.01-0.08 jfkb=6597) MYELOCYTES-ABS (CELLAVISION)(BEAKER) (test 0.38 K/uL 0.00-0.00 obvc=4311) TOTAL COUNTED (BEAKER) (test wtmd=9998) 100 WBC MORPHOLOGY (BEAKER) (test dqfu=141) Normal PLT MORPHOLOGY (BEAKER) (test lsfa=173) Normal POLYCHROMATOPHILLIC RBCS(BEAKER) (test klul=229) 1+ few ANISOCYTOSIS (BEAKER) (test cmmq=415) 1+ few MACROCYTES (BEAKER) (test rmeh=797) 1+ few POIKILOCYTES (BEAKER) (test fwon=664) 2+ moderate ARTIFACT (CELLAVISION)(BEAKER) (test tfnh=7919) Present PLATELET CONCENTRATION (CELLAVISION)(BEAKER) Adequate (test exob=3380) Received comment: User comments: Slide comments:POCT-GLUCOSE [id number] 12: 50:00 Test Item Value Reference Range Comments POC-GLUCOSE METER (BEAKER) 117 mg/dL 70-[address] [facility] [address] [facility] (test khkq=7331) [facility] [address] [id number] 07:00:00 Test Item Value Reference Range Comments PHOSPHORUS (BEAKER) (test rgyp=779) 4.2 mg/dL 2.3-4.7 [id number] 07:00:00 Test Item Value Reference Range Comments MAGNESIUM (BEAKER) (test mxcc=769) 1.9 mg/dL 1.6-2.6 BASIC METABOLIC [id number] 07:00:00 Test Item Value Reference Range Comments SODIUM (BEAKER) (test 140 meq/L 136-145 nmfi=807) POTASSIUM (BEAKER) (test 4.0 meq/L 3.5-5.1 jjll=276) CHLORIDE (BEAKER) (test 101 meq/L 98-107 woll=477) CO2 (BEAKER) (test 32 meq/L 22-29 nxsz=865) BLOOD UREA NITROGEN 9 mg/dL 7-21 (BEAKER) (test tzaf=400) CREATININE (BEAKER) (test 0.62 mg/dL 0.57-1.25 gzin=006) GLUCOSE RANDOM (BEAKER) 104 mg/dL 70-105 (test fvfu=786) CALCIUM (BEAKER) (test 8.4 mg/dL 8.4-10.2 mysk=253) EGFR (BEAKER) (test 138 mL/min/1.73 sq m ESTIMATED GFR IS NOT gemu=3556) ACCURATE CREATININE CLEARANCE IN PREDICTING GLOMERULAR FILTRATION RATE. ESTIMATED GFR IS NOT APPLICABLE FOR DIALYSIS PATIENTS. CBC W/PLT COUNT & AUTO [id number] 10:11:00 Test Item Value Reference Range Comments WHITE BLOOD CELL COUNT (BEAKER) (test vtyc=925) 10.8 K/ L 3.5-10.5 RED BLOOD CELL COUNT (BEAKER) (test knxt=468) 3.48 M/ L 4.63-6.08 HEMOGLOBIN (BEAKER) (test mgeh=944) 10.6 GM/DL 13.7-17.5 HEMATOCRIT (BEAKER) (test ebhw=563) 33.9 % 40.1-51.0 MEAN CORPUSCULAR VOLUME (BEAKER) (test daar=990) 97.4 fL 79.0-92.2 MEAN CORPUSCULAR HEMOGLOBIN (BEAKER) (test 30.5 pg 25.7-32.2 fdnf=386) MEAN CORPUSCULAR HEMOGLOBIN CONC (BEAKER) (test 31.3 GM/DL 32.3-36.5 mlig=494) RED CELL DISTRIBUTION WIDTH (BEAKER) (test 15.4 % 11.6-14.4 shrl=765) PLATELET COUNT (BEAKER) (test dahc=105) 431 K/CU MM 150-450 MEAN PLATELET VOLUME (BEAKER) (test ghlq=619) 10.0 fL 9.4-12.4 NUCLEATED RED BLOOD CELLS (BEAKER) (test 0 /100 WBC 0-0 zctm=570) (CELLAVISION MANUAL DIFF)2018-07-21 10:11:00 Test Item Value Reference Range Comments NEUTROPHILS - REL (CELLAVISION)(BEAKER) (test 77 % neyy=5282) LYMPHOCYTES - REL (CELLAVISION)(BEAKER) (test 3 % ilhx=5162) MONOCYTES - REL (CELLAVISION)(BEAKER) (test 7 % qzyt=8350) EOSINOPHILS - REL (CELLAVISION)(BEAKER) (test 3 % cnfn=6048) MYELOCYTES - REL (CELLAVISION)(BEAKER) (test 4 % 0-0 tfau=9652) PROMYELOCYTES - REL (CELLAVSION)(BEAKER) (test 1 % 0-0 cqpl=0792) BANDS - REL (CELLAVISION)(BEAKER) (test 5 % 0-10 xsja=8704) NEUTROPHILS - ABS (CELLAVISION)(BEAKER) (test 8.32 K/ul 1.78-5.38 esbf=3667) LYMPHOCYTES - ABS (CELLAVISION)(BEAKER) (test 0.32 K/ul 1.32-3.57 ymgs=3937) MONOCYTES - ABS (CELLAVISION)(BEAKER) (test 0.76 K/uL 0.30-0.82 jqzn=2560) EOSINOPHILS - ABS (CELLAVISION)(BEAKER) (test 0.32 K/uL 0.04-0.54 wufc=8916) MYELOCYTES-ABS (CELLAVISION)(BEAKER) (test 0.43 K/uL 0.00-0.00 tzyq=5683) PROMYELOCYTES - ABS (CELLAVISION)(BEAKER) (test 0.11 K/uL 0.00-0.00 zllz=7451) BANDS - ABS (CELLAVISION)(BEAKER) (test 0.54 K/uL 0.00-0.80 qhti=1488) TOTAL COUNTED (BEAKER) (test srcw=8632) 100 WBC MORPHOLOGY (BEAKER) (test wukf=241) Normal PLT MORPHOLOGY (BEAKER) (test wllc=390) Normal ANISOCYTOSIS (BEAKER) (test sijv=363) 2+ moderate MICROCYTES (BEAKER) (test fepb=814) 2+ moderate ARTIFACT (CELLAVISION)(BEAKER) (test pwxa=5843) Present PLATELET CONCENTRATION (CELLAVISION)(BEAKER) Adequate (test zbhp=2376) Received comment: User comments: Slide comments:[id number] 05:39:00 Test Item Value Reference Range Comments PHOSPHORUS (BEAKER) (test dgms=292) 5.1 mg/dL 2.3-4.7 [id number] 05:39:00 Test Item Value Reference Range Comments MAGNESIUM (BEAKER) (test paed=145) 2.0 mg/dL 1.6-2.6 BASIC METABOLIC [id number] 05:39:00 Test Item Value Reference Range Comments SODIUM (BEAKER) (test 139 meq/L 136-145 gqax=620) POTASSIUM (BEAKER) (test 4.3 meq/L 3.5-5.1 colb=508) CHLORIDE (BEAKER) (test 100 meq/L 98-107 nafp=499) CO2 (BEAKER) (test 29 meq/L 22-29 gjay=246) BLOOD UREA NITROGEN 10 mg/dL 7-21 (BEAKER) (test ddwi=574) CREATININE (BEAKER) (test 0.64 mg/dL 0.57-1.25 wnsp=949) GLUCOSE RANDOM (BEAKER) 97 mg/dL 70-105 (test vofp=857) CALCIUM (BEAKER) (test 8.6 mg/dL 8.4-10.2 mimy=346) EGFR (BEAKER) (test 133 mL/min/1.73 sq m ESTIMATED GFR IS NOT dyty=7757) ACCURATE CREATININE CLEARANCE IN PREDICTING GLOMERULAR FILTRATION RATE. ESTIMATED GFR IS NOT APPLICABLE FOR DIALYSIS PATIENTS. VANCOMYCIN LEVEL, [id number] 23:38:00 Test Item Value Reference Range Comments VANCOMYCIN TROUGH (BEAKER) (test ghym=048) 5.5 ug/mL 10.0-20.0 CBC W/PLT COUNT & AUTO [id number] 10:44:00 Test Item Value Reference Range Comments WHITE BLOOD CELL COUNT (BEAKER) (test rror=323) 14.3 K/ L 3.5-10.5 RED BLOOD CELL COUNT (BEAKER) (test skni=741) 3.43 M/ L 4.63-6.08 HEMOGLOBIN (BEAKER) (test zpai=181) 10.4 GM/DL 13.7-17.5 HEMATOCRIT (BEAKER) (test efgw=173) 33.5 % 40.1-51.0 MEAN CORPUSCULAR VOLUME (BEAKER) (test bowv=545) 97.7 fL 79.0-92.2 MEAN CORPUSCULAR HEMOGLOBIN (BEAKER) (test 30.3 pg 25.7-32.2 khky=650) MEAN CORPUSCULAR HEMOGLOBIN CONC (BEAKER) (test 31.0 GM/DL 32.3-36.5 btds=446) RED CELL DISTRIBUTION WIDTH (BEAKER) (test 15.7 % 11.6-14.4 ovyd=862) PLATELET COUNT (BEAKER) (test iqnt=593) 402 K/CU MM 150-450 MEAN PLATELET VOLUME (BEAKER) (test bszg=496) 10.6 fL 9.4-12.4 NUCLEATED RED BLOOD CELLS (BEAKER) (test 0 /100 WBC 0-0 rjnr=999) (CELLAVISION MANUAL DIFF)[id number] 10:44:00 Test Item Value Reference Range Comments NEUTROPHILS - REL (CELLAVISION)(BEAKER) (test 83 % ccao=5176) LYMPHOCYTES - REL (CELLAVISION)(BEAKER) (test 2 % uibs=2285) MONOCYTES - REL (CELLAVISION)(BEAKER) (test 9 % gywp=8066) EOSINOPHILS - REL (CELLAVISION)(BEAKER) (test 3 % metw=4714) MYELOCYTES - REL (CELLAVISION)(BEAKER) (test 1 % 0-0 oyhz=7890) BANDS - REL (CELLAVISION)(BEAKER) (test 2 % 0-10 bjyo=3344) NEUTROPHILS - ABS (CELLAVISION)(BEAKER) (test 11.87 K/ul 1.78-5.38 ijhs=9455) LYMPHOCYTES - ABS (CELLAVISION)(BEAKER) (test 0.29 K/ul 1.32-3.57 uvzh=0534) MONOCYTES - ABS (CELLAVISION)(BEAKER) (test 1.29 K/uL 0.30-0.82 bqgn=3391) EOSINOPHILS - ABS (CELLAVISION)(BEAKER) (test 0.43 K/uL 0.04-0.54 csxq=3419) MYELOCYTES-ABS (CELLAVISION)(BEAKER) (test 0.14 K/uL 0.00-0.00 bhcu=2267) BANDS - ABS (CELLAVISION)(BEAKER) (test 0.29 K/uL 0.00-0.80 fgpn=6468) TOTAL COUNTED (BEAKER) (test utke=9008) 100 WBC MORPHOLOGY (BEAKER) (test yzgq=405) Normal GIANT PLATELETS (BEAKER) (test mfhx=471) Present POLYCHROMATOPHILLIC RBCS(BEAKER) (test nohg=165) 1+ few ANISOCYTOSIS (BEAKER) (test pywr=054) 1+ few ARTIFACT (CELLAVISION)(BEAKER) (test wcce=2817) Present PLATELET CONCENTRATION (CELLAVISION)(BEAKER) Adequate (test xpfv=3490) Received comment: User comments: Slide comments:[id number] 06:44:00 Test Item Value Reference Range Comments MAGNESIUM (BEAKER) (test 2.1 mg/dL 1.6-2.6 Specimen slightly hemolyzed zlfw=546) [id number] 06:44:00 Test Item Value Reference Range Comments PHOSPHORUS (BEAKER) (test 5.0 mg/dL 2.3-4.7 Specimen slightly hemolyzed qizl=171) BASIC METABOLIC [id number] 06:44:00 Test Item Value Reference Range Comments SODIUM (BEAKER) (test 138 meq/L 136-145 ntnp=207) POTASSIUM (BEAKER) (test 4.6 meq/L 3.5-5.1 Specimen slightly kqtr=263) hemolyzed CHLORIDE (BEAKER) (test 99 meq/L 98-107 wwpg=289) CO2 (BEAKER) (test 30 meq/L 22-29 bpqa=558) BLOOD UREA NITROGEN 10 mg/dL 7-21 (BEAKER) (test slot=532) CREATININE (BEAKER) (test 0.67 mg/dL 0.57-1.25 Specimen slightly ceah=745) hemolyzed GLUCOSE RANDOM (BEAKER) 87 mg/dL 70-105 (test hxrt=980) CALCIUM (BEAKER) (test 8.7 mg/dL 8.4-10.2 zzas=474) EGFR (BEAKER) (test 127 mL/min/1.73 sq m ESTIMATED GFR IS NOT zqbd=2801) ACCURATE CREATININE CLEARANCE IN PREDICTING GLOMERULAR FILTRATION RATE. ESTIMATED GFR IS NOT APPLICABLE FOR DIALYSIS PATIENTS. [id number] 06:06:00 Test Item Value Reference Range Comments PROTIME (BEAKER) (test fkfa=940) 15.6 seconds 11.7-14.7 INR (BEAKER) (test gzyh=116) 1.2 <=5.9 PARTIAL THROMBOPLASTIN TIME (BEAKER) (test 46.0 seconds 22.5-36.0 atyp=936) RECOMMENDED COUMADIN/WARFARIN INR THERAPY RANGESSTANDARD DOSE: 2.0 - 3.0 Includes: PROPHYLAXIS forvenous thrombosis, systemic embolization; TREATMENT for venous thrombosis and/or pulmonary embolus.HIGH RISK: Target INR is 2.5-3.5 for patients with mechanical heart valves.SPUTUM CULTURE + GRAM [id number] 14:44:00 Test Item Value Reference Range Comments CULTURE (BEAKER) (test Oropharyngeal contamination, lgjj=7009) specimen rejected. Recollect requested. GRAM STAIN RESULT (BEAKER) <1+ WBCs (test vint=9947) GRAM STAIN RESULT (BEAKER) >25 epithelial cells (test cgph=89707) GRAM STAIN RESULT (BEAKER) <1+ gram positive rods (test rmzj=94797) RAD, CHEST, 1 VIEW, NON [id number] 13:59:00Reason for exam:-> leukocytosis in setting of recent laryngectomyShould this be performed at the bedside?->YesFINAL REPORT INDICATION: leukocytosis in setting of recent laryngectomy COMPARISON:July 17 TECHNIQUE: Chest radiograph, single view, portable technique. FINDINGS / IMPRESSION: No pneumonia is demonstrated. Right base linear opacities represent subsegmental atelectasis. Tracheostomy tube and left low neck dissection noted. No pneumomediastinum or pneumothorax demonstrated. Cardiac and mediastinal contours unremarkable. Signed : Randolph Man MDReport Verified Date/Time: 07/19/2018 13:59:21 Reading Location: [address] Consult Reading Room URINALYSIS W/ REFLEX URINE [id number] 11:14:00 Test Item Value Reference Range Comments COLOR (BEAKER) (test xife=903) Light Yellow CLARITY (BEAKER) (test wasi=822) Clear SPECIFIC GRAVITY UA (BEAKER) (test tptn=809) 1.013 1.001-1.035 PH UA (BEAKER) (test augk=185) 6.0 5.0-8.0 PROTEIN UA (BEAKER) (test nwyk=642) Negative Negative GLUCOSE UA (BEAKER) (test tqxo=246) Negative Negative KETONES UA (BEAKER) (test lcpi=166) Negative Negative BILIRUBIN UA (BEAKER) (test nvjs=193) Negative Negative BLOOD UA (BEAKER) (test lnrn=435) Trace Negative NITRITE UA (BEAKER) (test gjgr=174) Negative Negative LEUKOCYTE ESTERASE UA (BEAKER) (test mebb=064) Small Negative UROBILINOGEN UA (BEAKER) (test mqut=461) 0.2 mg/dL 0.2-1.0 RBC UA (BEAKER) (test yjdq=730) 2 /HPF WBC UA (BEAKER) (test tmfg=529) 15 /HPF MUCUS (BEAKER) (test vxwz=3853) Occasional HYALINE CASTS (BEAKER) (test aesd=862) 2 /LPF SOURCE(BEAKER) (test hbqw=2056) POCT-GLUCOSE [id number] 06:46:00 Test Item Value Reference Range Comments POC-GLUCOSE METER (BEAKER) 102 mg/dL 70-[address] [facility] [address] [facility] (test kska=6992) [facility] [address] [id number] 04:52:00 Test Item Value Reference Range Comments PHOSPHORUS (BEAKER) (test nnig=896) 4.1 mg/dL 2.3-4.7 [id number] 04:52:00 Test Item Value Reference Range Comments MAGNESIUM (BEAKER) (test zfpm=407) 1.8 mg/dL 1.6-2.6 BASIC METABOLIC [id number] 04:52:00 Test Item Value Reference Range Comments SODIUM (BEAKER) (test 138 meq/L 136-145 xpwn=116) POTASSIUM (BEAKER) (test 3.7 meq/L 3.5-5.1 hwla=986) CHLORIDE (BEAKER) (test 101 meq/L 98-107 eedw=413) CO2 (BEAKER) (test 26 meq/L 22-29 kfmv=189) BLOOD UREA NITROGEN 10 mg/dL 7-21 (BEAKER) (test kndk=244) CREATININE (BEAKER) (test 0.67 mg/dL 0.57-1.25 qzvs=416) GLUCOSE RANDOM (BEAKER) 111 mg/dL 70-105 (test vpex=587) CALCIUM (BEAKER) (test 8.5 mg/dL 8.4-10.2 dcqy=291) EGFR (BEAKER) (test 127 mL/min/1.73 sq m ESTIMATED GFR IS NOT sqdh=6894) ACCURATE CREATININE CLEARANCE IN PREDICTING GLOMERULAR FILTRATION RATE. ESTIMATED GFR IS NOT APPLICABLE FOR DIALYSIS PATIENTS. CBC W/PLT COUNT & AUTO [id number] 04:25:00 Test Item Value Reference Range Comments WHITE BLOOD CELL COUNT (BEAKER) (test ggqb=552) 13.6 K/ L 3.5-10.5 RED BLOOD CELL COUNT (BEAKER) (test lbjl=540) 3.58 M/ L 4.63-6.08 HEMOGLOBIN (BEAKER) (test sbfg=275) 10.8 GM/DL 13.7-17.5 HEMATOCRIT (BEAKER) (test bxkr=676) 34.8 % 40.1-51.0 MEAN CORPUSCULAR VOLUME (BEAKER) (test kqra=319) 97.2 fL 79.0-92.2 MEAN CORPUSCULAR HEMOGLOBIN (BEAKER) (test 30.2 pg 25.7-32.2 mhkq=563) MEAN CORPUSCULAR HEMOGLOBIN CONC (BEAKER) (test 31.0 GM/DL 32.3-36.5 mbnf=583) RED CELL DISTRIBUTION WIDTH (BEAKER) (test 15.1 % 11.6-14.4 fvnl=294) PLATELET COUNT (BEAKER) (test tkmj=896) 392 K/CU MM 150-450 MEAN PLATELET VOLUME (BEAKER) (test atdx=650) 10.0 fL 9.4-12.4 NUCLEATED RED BLOOD CELLS (BEAKER) (test 0 /100 WBC 0-0 fhzx=981) NEUTROPHILS RELATIVE PERCENT (BEAKER) (test 78 % aldn=947) LYMPHOCYTES RELATIVE PERCENT (BEAKER) (test 5 % ziuv=228) MONOCYTES RELATIVE PERCENT (BEAKER) (test 10 % vhdh=447) EOSINOPHILS RELATIVE PERCENT (BEAKER) (test 2 % urjq=074) BASOPHILS RELATIVE PERCENT (BEAKER) (test 1 % bbav=292) NEUTROPHILS ABSOLUTE COUNT (BEAKER) (test 10.68 K/ L 1.78-5.38 nisz=723) LYMPHOCYTES ABSOLUTE COUNT (BEAKER) (test 0.68 K/ L 1.32-3.57 cmjb=210) MONOCYTES ABSOLUTE COUNT (BEAKER) (test 1.40 K/ L 0.30-0.82 cwje=577) EOSINOPHILS ABSOLUTE COUNT (BEAKER) (test 0.31 K/ L 0.04-0.54 bgzf=887) BASOPHILS ABSOLUTE COUNT (BEAKER) (test 0.08 K/ L 0.01-0.08 mgvb=009) IMMATURE GRANULOCYTES-RELATIVE PERCENT (BEAKER) 3 % 0-1 (test jxei=5921) [id number] 04:11:00 Test Item Value Reference Range Comments PROTIME (BEAKER) (test gcpp=781) 15.8 seconds 11.7-14.7 INR (BEAKER) (test ujrq=111) 1.2 <=5.9 PARTIAL THROMBOPLASTIN TIME (BEAKER) (test 48.2 seconds 22.5-36.0 cogl=641) RECOMMENDED COUMADIN/WARFARIN INR THERAPY RANGESSTANDARD DOSE: 2.0 - 3.0 Includes: PROPHYLAXIS forvenous thrombosis, systemic embolization; TREATMENT for venous thrombosis and/or pulmonary embolus.HIGH RISK: Target INR is 2.5-3.5 for patients with mechanical heart valves.POCT-GLUCOSE [id number] 00:11:00 Test Item Value Reference Range Comments POC-GLUCOSE METER (BEAKER) 76 mg/dL 70-110 TESTED AT [address] (test afgk=0791) [place] [address] POCT-GLUCOSE [id number] 17:53:00 Test Item Value Reference Range Comments POC-GLUCOSE METER (BEAKER) 94 mg/dL 70-110 TESTED AT [address] (test xlnu=3555) [place] [address] T4, [id number] 11:41:00 Test Item Value Reference Range Comments FREE T4 (BEAKER) (test mzuv=176) 0.90 ng/dL 0.70-1.48 POCT-GLUCOSE [id number] 11:35:00 Test Item Value Reference Range Comments POC-GLUCOSE METER (BEAKER) 103 mg/dL 70-110 TESTED AT [address] (test crhz=6839) [place] [address] TSH/FREE T4 IF [id number] 10:50:00 Test Item Value Reference Range Comments THYROID STIMULATING HORMONE (BEAKER) (test 14.67 uIU/mL 0.35-4.94 apzp=909) POCT-GLUCOSE [id number] 06:42:00 Test Item Value Reference Range Comments POC-GLUCOSE METER (BEAKER) 111 mg/dL 70-110 TESTED AT [address] (test bfzw=1347) [place] [address] CBC W/PLT COUNT & AUTO [id number] 05:20:00 Test Item Value Reference Range Comments WHITE BLOOD CELL COUNT (BEAKER) (test lrio=637) 11.4 K/ L 3.5-10.5 RED BLOOD CELL COUNT (BEAKER) (test otuv=780) 3.40 M/ L 4.63-6.08 HEMOGLOBIN (BEAKER) (test cica=330) 10.3 GM/DL 13.7-17.5 HEMATOCRIT (BEAKER) (test vxgf=343) 33.6 % 40.1-51.0 MEAN CORPUSCULAR VOLUME (BEAKER) (test cjir=510) 98.8 fL 79.0-92.2 MEAN CORPUSCULAR HEMOGLOBIN (BEAKER) (test 30.3 pg 25.7-32.2 ptin=413) MEAN CORPUSCULAR HEMOGLOBIN CONC (BEAKER) (test 30.7 GM/DL 32.3-36.5 ijrk=517) RED CELL DISTRIBUTION WIDTH (BEAKER) (test 15.3 % 11.6-14.4 tjpc=834) PLATELET COUNT (BEAKER) (test zghg=209) 365 K/CU MM 150-450 MEAN PLATELET VOLUME (BEAKER) (test znro=559) 10.2 fL 9.4-12.4 NUCLEATED RED BLOOD CELLS (BEAKER) (test 0 /100 WBC 0-0 vjff=460) NEUTROPHILS RELATIVE PERCENT (BEAKER) (test 80 % nuwp=464) LYMPHOCYTES RELATIVE PERCENT (BEAKER) (test 6 % dofx=977) MONOCYTES RELATIVE PERCENT (BEAKER) (test 9 % mpln=884) EOSINOPHILS RELATIVE PERCENT (BEAKER) (test 3 % tzth=840) BASOPHILS RELATIVE PERCENT (BEAKER) (test 0 % dfhp=804) NEUTROPHILS ABSOLUTE COUNT (BEAKER) (test 9.06 K/ L 1.78-5.38 bdda=594) LYMPHOCYTES ABSOLUTE COUNT (BEAKER) (test 0.72 K/ L 1.32-3.57 ondm=809) MONOCYTES ABSOLUTE COUNT (BEAKER) (test 1.06 K/ L 0.30-0.82 hugj=551) EOSINOPHILS ABSOLUTE COUNT (BEAKER) (test 0.28 K/ L 0.04-0.54 snyh=322) BASOPHILS ABSOLUTE COUNT (BEAKER) (test 0.05 K/ L 0.01-0.08 fyop=675) IMMATURE GRANULOCYTES-RELATIVE PERCENT (BEAKER) 2 % 0-1 (test lozf=0144) [id number] 05:00:00 Test Item Value Reference Range Comments PHOSPHORUS (BEAKER) (test xqgh=109) 5.2 mg/dL 2.3-4.7 [id number] 05:00:00 Test Item Value Reference Range Comments MAGNESIUM (BEAKER) (test lmod=879) 2.0 mg/dL 1.6-2.6 BASIC METABOLIC [id number] 05:00:00 Test Item Value Reference Range Comments SODIUM (BEAKER) (test 141 meq/L 136-145 uppa=515) POTASSIUM (BEAKER) (test 3.7 meq/L 3.5-5.1 xtqn=331) CHLORIDE (BEAKER) (test 102 meq/L 98-107 albr=252) CO2 (BEAKER) (test 29 meq/L 22-29 btmf=635) BLOOD UREA NITROGEN 7 mg/dL 7-21 (BEAKER) (test cndr=788) CREATININE (BEAKER) (test 0.68 mg/dL 0.57-1.25 aevn=290) GLUCOSE RANDOM (BEAKER) 114 mg/dL 70-105 (test ulze=197) CALCIUM (BEAKER) (test 8.2 mg/dL 8.4-10.2 lgod=672) EGFR (BEAKER) (test 124 mL/min/1.73 sq m ESTIMATED GFR IS NOT mvla=1046) ACCURATE CREATININE CLEARANCE IN PREDICTING GLOMERULAR FILTRATION RATE. ESTIMATED GFR IS NOT APPLICABLE FOR DIALYSIS PATIENTS. [id number] 04:55:00 Test Item Value Reference Range Comments PROTIME (BEAKER) (test espr=351) 15.2 seconds 11.7-14.7 INR (BEAKER) (test wofa=195) 1.2 <=5.9 PARTIAL THROMBOPLASTIN TIME (BEAKER) (test 38.9 seconds 22.5-36.0 jvcd=416) RECOMMENDED COUMADIN/WARFARIN INR THERAPY RANGESSTANDARD DOSE: 2.0 - 3.0 Includes: PROPHYLAXIS forvenous thrombosis, systemic embolization; TREATMENT for venous thrombosis and/or pulmonary embolus.HIGH RISK: Target INR is 2.5-3.5 for patients with mechanical heart valves.CBC W/PLT COUNT & AUTO [id number] 08:47:00 Test Item Value Reference Range Comments WHITE BLOOD CELL COUNT (BEAKER) (test jcow=141) 13.2 K/ L 3.5-10.5 RED BLOOD CELL COUNT (BEAKER) (test mqsz=060) 3.21 M/ L 4.63-6.08 HEMOGLOBIN (BEAKER) (test ohrp=713) 9.8 GM/DL 13.7-17.5 HEMATOCRIT (BEAKER) (test lfkw=340) 30.9 % 40.1-51.0 MEAN CORPUSCULAR VOLUME (BEAKER) (test cmyj=189) 96.3 fL 79.0-92.2 MEAN CORPUSCULAR HEMOGLOBIN (BEAKER) (test 30.5 pg 25.7-32.2 tkpa=960) MEAN CORPUSCULAR HEMOGLOBIN CONC (BEAKER) (test 31.7 GM/DL 32.3-36.5 obdl=054) RED CELL DISTRIBUTION WIDTH (BEAKER) (test 15.2 % 11.6-14.4 aifp=384) PLATELET COUNT (BEAKER) (test ujtd=341) 310 K/CU MM 150-450 MEAN PLATELET VOLUME (BEAKER) (test hvlp=737) 10.1 fL 9.4-12.4 NUCLEATED RED BLOOD CELLS (BEAKER) (test 0 /100 WBC 0-0 dmpe=539) (CELLAVISION MANUAL DIFF)[id number] 08:47:00 Test Item Value Reference Range Comments NEUTROPHILS - REL (CELLAVISION)(BEAKER) (test 88 % iqqw=3175) LYMPHOCYTES - REL (CELLAVISION)(BEAKER) (test 2 % qlax=8928) MONOCYTES - REL (CELLAVISION)(BEAKER) (test 5 % ejiv=4434) EOSINOPHILS - REL (CELLAVISION)(BEAKER) (test 3 % uiwu=0371) MYELOCYTES - REL (CELLAVISION)(BEAKER) (test 1 % 0-0 ebkw=2555) ATYPICAL LYMPHOCYTES - REL (CELLAVISION)(BEAKER) 1 % 0-0 (test iilx=1330) NEUTROPHILS - ABS (CELLAVISION)(BEAKER) (test 11.62 K/ul 1.78-5.38 lrti=3476) LYMPHOCYTES - ABS (CELLAVISION)(BEAKER) (test 0.26 K/ul 1.32-3.57 hzit=4102) MONOCYTES - ABS (CELLAVISION)(BEAKER) (test 0.66 K/uL 0.30-0.82 npoh=9160) EOSINOPHILS - ABS (CELLAVISION)(BEAKER) (test 0.40 K/uL 0.04-0.54 nrea=4557) MYELOCYTES-ABS (CELLAVISION)(BEAKER) (test 0.13 K/uL 0.00-0.00 eztg=8181) ATYPICAL LYMPHOCYTES - ABS (CELLAVISION)(BEAKER) 0.13 K/uL 0.00-0.00 (test jsyx=3010) TOTAL COUNTED (BEAKER) (test atgr=5097) 100 WBC MORPHOLOGY (BEAKER) (test ugmj=483) Normal PLT MORPHOLOGY (BEAKER) (test weex=425) Normal ANISOCYTOSIS (BEAKER) (test mhve=121) 2+ moderate MICROCYTES (BEAKER) (test qgvn=565) 2+ moderate ARTIFACT (CELLAVISION)(BEAKER) (test nilw=9790) Present PLATELET CONCENTRATION (CELLAVISION)(BEAKER) Adequate (test wsqo=1843) Received comment: User comments: Slide comments:POCT-GLUCOSE [id number] 06: 41:00 Test Item Value Reference Range Comments POC-GLUCOSE METER (BEAKER) 115 mg/dL 70-110 TESTED AT [address] (test qxcl=0148) [facility] [address] BASIC METABOLIC [id number] 04:53:00 Test Item Value Reference Range Comments SODIUM (BEAKER) (test 138 meq/L 136-145 jork=452) POTASSIUM (BEAKER) (test 3.4 meq/L 3.5-5.1 qhoa=870) CHLORIDE (BEAKER) (test 104 meq/L 98-107 hlnl=438) CO2 (BEAKER) (test 25 meq/L 22-29 yxby=190) BLOOD UREA NITROGEN 7 mg/dL 7-21 (BEAKER) (test cpeu=495) CREATININE (BEAKER) (test 0.68 mg/dL 0.57-1.25 rcdo=700) GLUCOSE RANDOM (BEAKER) 173 mg/dL 70-105 (test qwoz=684) CALCIUM (BEAKER) (test 7.6 mg/dL 8.4-10.2 mdin=451) EGFR (BEAKER) (test 124 mL/min/1.73 sq m ESTIMATED GFR IS NOT skcr=1606) ACCURATE CREATININE CLEARANCE IN PREDICTING GLOMERULAR FILTRATION RATE. ESTIMATED GFR IS NOT APPLICABLE FOR DIALYSIS PATIENTS. [id number] 04:37:00 Test Item Value Reference Range Comments PHOSPHORUS (BEAKER) (test vauj=625) 3.9 mg/dL 2.3-4.7 [id number] 04:37:00 Test Item Value Reference Range Comments MAGNESIUM (BEAKER) (test ensu=709) 1.6 mg/dL 1.6-2.6 [id number] 04:37:00 Test Item Value Reference Range Comments ALBUMIN (BEAKER) (test omlh=2745) 3.2 g/dL 3.5-5.0 [id number] 04:24:00 Test Item Value Reference Range Comments PROTIME (BEAKER) (test sqny=544) 15.9 seconds 11.7-14.7 INR (BEAKER) (test wzdf=246) 1.2 <=5.9 PARTIAL THROMBOPLASTIN TIME (BEAKER) (test 51.7 seconds 22.5-36.0 qnwl=162) RECOMMENDED COUMADIN/WARFARIN INR THERAPY RANGESSTANDARD DOSE: 2.0 - 3.0 Includes: PROPHYLAXIS forvenous thrombosis, systemic embolization; TREATMENT for venous thrombosis and/or pulmonary embolus.HIGH RISK: Target INR is 2.5-3.5 for patients with mechanical heart valves.RAD, CHEST, 1 VIEW, NON [id number] 03:56:00Reason for exam:->atelectasisShould this be performed at the bedside?->YesFINAL REPORT CLINICAL INDICATION: Support lines. Comparison: 07/16/2018 The cardiomediastinal contours are stable. The lung volumes remain low. Bibasilar parenchymal and pleural opacities are similar to previous. There is no pneumothorax. A tracheostomy tube is stable in position. A pigtail catheter overlies the left upper quadrant, probably a G- tube. Signed: Jakbo Garcia MDReport Verified Date/Time: 07/17/2018 03:56:49 Reading Location: [address] Reading Room POCT-GLUCOSE [id number] 00: 56:00 Test Item Value Reference Range Comments POC-GLUCOSE METER (BEAKER) 115 mg/dL 70-[address] [facility] [address] [facility] (test zdjs=2919) [facility] [address] POCT-GLUCOSE [id number] 18:10:00 Test Item Value Reference Range Comments POC-GLUCOSE METER (BEAKER) 116 mg/dL 70-110 TESTED AT [address] (test pike=5724) [facility] [address] POCT-GLUCOSE [id number] 13:10:00 Test Item Value Reference Range Comments POC-GLUCOSE METER (BEAKER) 115 mg/dL 70-110 TESTED AT [address] (test ggfx=0641) [place] [address] RAD, CHEST, 1 VIEW, NON [id number] 08:20:00Reason for exam:-> atelectasisShould this be performed at the bedside?->YesFINAL REPORT Portable chest. CLINICAL HISTORY: atelectasis. COMPARISON STUDY: Chest x-ray from yesterday. FINDINGS: The cardiac silhouette is enlarged. The pulmonary parenchyma demonstrates atelectasis or consolidation in the right lung base, stable from previous. The support lines and tubes are unchanged. No pneumothorax is seen. Degenerative changes are noted. IMPRESSION: No significant change. Signed: Gaudencio Barrett Verified Date/Time: 2018 08:20:57 ReadingLocation: [facility] B1 [id number] Ortho Consult Reading Room TROPONIN [id number] 08:03:00 Test Item Value Reference Range Comments TROPONIN I (BEAKER) (test mauk=671) 0.01 ng/mL 0.00-0.03 Troponin I (TnI) levels must be interpreted in the context of the presenting symptoms and the clinical findings. Elevated TnI levels indicate myocardial damage, but are not specific for ischemic heart disease. Elevated TnI levels are seen in patients with other cardiac conditions (including myocarditis and congestive heart failure), and slight TnI elevations occur in patients with other conditions, including sepsis, renal failure, acidosis, acute neurological disease, and persistent tachyarrhythmia.BLOOD GAS, [id number] 07:42:00 Test Item Value Reference Range Comments PH ARTERIAL (BEAKER) (test ukef=983) 7.42 7.35-7.45 PCO2 ARTERIAL (BEAKER) (test mfsj=923) 40 mmHg 35-45 PO2 ARTERIAL (BEAKER) (test ylsw=060) 77 mmHg 80-90 O2 SATURATION ARTERIAL (BEAKER) (test vqqq=210) 95.8 % 96.0-97.0 HCO3 ARTERIAL (BEAKER) (test velb=355) 25 mmol/L 21-29 BASE EXCESS ARTERIAL (BEAKER) (test xxmi=134) 0.9 mmol/L -2.0-3.0 PATIENT TEMPERATURE (BEAKER) (test uldh=1250) 36.8 C FIO2 (BEAKER) (test omki=9934) 44.0 % POCT-GLUCOSE [id number] 06:03:00 Test Item Value Reference Range Comments POC-GLUCOSE METER (BEAKER) 120 mg/dL 70-110 TESTED AT [address] (test oznh=8450) [facility] [address] CBC W/PLT COUNT & AUTO [id number] 04:00:00 Test Item Value Reference Range Comments WHITE BLOOD CELL COUNT (BEAKER) (test tcfv=795) 20.3 K/ L 3.5-10.5 RED BLOOD CELL COUNT (BEAKER) (test luyg=199) 3.66 M/ L 4.63-6.08 HEMOGLOBIN (BEAKER) (test inaw=372) 11.3 GM/DL 13.7-17.5 HEMATOCRIT (BEAKER) (test vppp=288) 36.0 % 40.1-51.0 MEAN CORPUSCULAR VOLUME (BEAKER) (test hosq=531) 98.4 fL 79.0-92.2 MEAN CORPUSCULAR HEMOGLOBIN (BEAKER) (test 30.9 pg 25.7-32.2 iuqw=213) MEAN CORPUSCULAR HEMOGLOBIN CONC (BEAKER) (test 31.4 GM/DL 32.3-36.5 vxto=705) RED CELL DISTRIBUTION WIDTH (BEAKER) (test 15.0 % 11.6-14.4 khtb=878) PLATELET COUNT (BEAKER) (test zgtl=732) 319 K/CU MM 150-450 MEAN PLATELET VOLUME (BEAKER) (test zgjp=198) 10.5 fL 9.4-12.4 NUCLEATED RED BLOOD CELLS (BEAKER) (test 0 /100 WBC 0-0 kfda=720) NEUTROPHILS RELATIVE PERCENT (BEAKER) (test 86 % rbmh=750) LYMPHOCYTES RELATIVE PERCENT (BEAKER) (test 4 % ksvf=026) MONOCYTES RELATIVE PERCENT (BEAKER) (test 9 % aeaj=554) EOSINOPHILS RELATIVE PERCENT (BEAKER) (test 0 % fpov=368) BASOPHILS RELATIVE PERCENT (BEAKER) (test 0 % sswl=900) NEUTROPHILS ABSOLUTE COUNT (BEAKER) (test 17.32 K/ L 1.78-5.38 bxty=329) LYMPHOCYTES ABSOLUTE COUNT (BEAKER) (test 0.72 K/ L 1.32-3.57 tacn=436) MONOCYTES ABSOLUTE COUNT (BEAKER) (test 1.82 K/ L 0.30-0.82 hude=156) EOSINOPHILS ABSOLUTE COUNT (BEAKER) (test 0.07 K/ L 0.04-0.54 fcee=528) BASOPHILS ABSOLUTE COUNT (BEAKER) (test 0.07 K/ L 0.01-0.08 ruyx=056) IMMATURE GRANULOCYTES-RELATIVE PERCENT (BEAKER) 1 % 0-1 (test lvxi=5108) [id number] 03:38:00 Test Item Value Reference Range Comments MAGNESIUM (BEAKER) (test 2.0 mg/dL 1.6-2.6 Specimen slightly hemolyzed zpwg=655) [id number] 03:38:00 Test Item Value Reference Range Comments PHOSPHORUS (BEAKER) (test 3.6 mg/dL 2.3-4.7 Specimen slightly hemolyzed rpfo=687) BASIC METABOLIC [id number] 03:38:00 Test Item Value Reference Range Comments SODIUM (BEAKER) (test 140 meq/L 136-145 sodv=149) POTASSIUM (BEAKER) (test 4.0 meq/L 3.5-5.1 Specimen slightly fiye=961) hemolyzed CHLORIDE (BEAKER) (test 105 meq/L 98-107 gsen=692) CO2 (BEAKER) (test 25 meq/L 22-29 yyha=490) BLOOD UREA NITROGEN 5 mg/dL 7-21 (BEAKER) (test xqan=190) CREATININE (BEAKER) (test 0.73 mg/dL 0.57-1.25 Specimen slightly elwv=772) hemolyzed GLUCOSE RANDOM (BEAKER) 129 mg/dL 70-105 (test firk=176) CALCIUM (BEAKER) (test 8.5 mg/dL 8.4-10.2 kypk=209) EGFR (BEAKER) (test 115 mL/min/1.73 sq m ESTIMATED GFR IS NOT sped=1192) ACCURATE CREATININE CLEARANCE IN PREDICTING GLOMERULAR FILTRATION RATE. ESTIMATED GFR IS NOT APPLICABLE FOR DIALYSIS PATIENTS. [id number] 03:38:00 Test Item Value Reference Range Comments ALBUMIN (BEAKER) (test 3.9 g/dL 3.5-5.0 Specimen slightly hemolyzed wffk=3409) [id number] 03:31:00 Test Item Value Reference Range Comments PROTIME (BEAKER) (test rzsb=166) 15.5 seconds 11.7-14.7 INR (BEAKER) (test hhho=078) 1.2 <=5.9 PARTIAL THROMBOPLASTIN TIME (BEAKER) (test 34.5 seconds 22.5-36.0 pkit=606) RECOMMENDED COUMADIN/WARFARIN INR THERAPY RANGESSTANDARD DOSE: 2.0 - 3.0 Includes: PROPHYLAXIS forvenous thrombosis, systemic embolization; TREATMENT for venous thrombosis and/or pulmonary embolus.HIGH RISK: Target INR is 2.5-3.5 for patients with mechanical heart valves.POCT-GLUCOSE [id number] 23:39:00 Test Item Value Reference Range Comments POC-GLUCOSE METER (BEAKER) 121 mg/dL 70-110 TESTED AT [address] (test soly=5206) [facility] [address] POCT-GLUCOSE [id number] 18:25:00 Test Item Value Reference Range Comments POC-GLUCOSE METER (BEAKER) 112 mg/dL 70-[address] [facility] [address] [facility] (test hkqf=9443) [facility] [address] T4, [id number] 12:56:00 Test Item Value Reference Range Comments FREE T4 (BEAKER) (test vhhh=147) 1.17 ng/dL 0.70-1.48 POCT-GLUCOSE [id number] 11:35:00 Test Item Value Reference Range Comments POC-GLUCOSE METER (BEAKER) 143 mg/dL 70-[address] [facility] [address] (test kyhi=5936) [place] [address] CBC W/PLT COUNT & AUTO [id number] 07:50:00 Test Item Value Reference Range Comments WHITE BLOOD CELL COUNT (BEAKER) (test uyam=233) 24.1 K/ L 3.5-10.5 RED BLOOD CELL COUNT (BEAKER) (test vvdx=961) 3.75 M/ L 4.63-6.08 HEMOGLOBIN (BEAKER) (test scem=336) 11.7 GM/DL 13.7-17.5 HEMATOCRIT (BEAKER) (test xedu=507) 35.7 % 40.1-51.0 MEAN CORPUSCULAR VOLUME (BEAKER) (test tteo=279) 95.2 fL 79.0-92.2 MEAN CORPUSCULAR HEMOGLOBIN (BEAKER) (test 31.2 pg 25.7-32.2 bliv=940) MEAN CORPUSCULAR HEMOGLOBIN CONC (BEAKER) (test 32.8 GM/DL 32.3-36.5 dknn=545) RED CELL DISTRIBUTION WIDTH (BEAKER) (test 14.8 % 11.6-14.4 rbgs=124) PLATELET COUNT (BEAKER) (test qtdb=583) 334 K/CU MM 150-450 MEAN PLATELET VOLUME (BEAKER) (test enyr=319) 10.3 fL 9.4-12.4 NUCLEATED RED BLOOD CELLS (BEAKER) (test 0 /100 WBC 0-0 nxpz=121) (CELLAVISION MANUAL DIFF)2018-07-15 07:50:00 Test Item Value Reference Range Comments NEUTROPHILS - REL (CELLAVISION)(BEAKER) (test 87 % ftwa=4848) LYMPHOCYTES - REL (CELLAVISION)(BEAKER) (test 3 % fvam=2442) MONOCYTES - REL (CELLAVISION)(BEAKER) (test 5 % vawg=6990) METAMYELOCYTES - REL (CELLAVISION)(BEAKER) (test 1 % 0-0 hydt=0705) MYELOCYTES - REL (CELLAVISION)(BEAKER) (test 1 % 0-0 zfru=2845) BANDS - REL (CELLAVISION)(BEAKER) (test 2 % 0-10 ceub=7148) ATYPICAL LYMPHOCYTES - REL (CELLAVISION)(BEAKER) 1 % 0-0 (test eotu=1892) NEUTROPHILS - ABS (CELLAVISION)(BEAKER) (test 20.97 K/ul 1.78-5.38 wvvz=4245) LYMPHOCYTES - ABS (CELLAVISION)(BEAKER) (test 0.72 K/ul 1.32-3.57 czpp=1967) MONOCYTES - ABS (CELLAVISION)(BEAKER) (test 1.21 K/uL 0.30-0.82 himp=1633) METAMYELOCYTES - ABS (CELLAVISION)(BEAKER) (test 0.24 K/uL 0.00-0.00 gloc=3185) MYELOCYTES-ABS (CELLAVISION)(BEAKER) (test 0.24 K/uL 0.00-0.00 fwrt=6893) BANDS - ABS (CELLAVISION)(BEAKER) (test 0.48 K/uL 0.00-0.80 vljr=8494) ATYPICAL LYMPHOCYTES - ABS (CELLAVISION)(BEAKER) 0.24 K/uL 0.00-0.00 (test vmib=7270) TOTAL COUNTED (BEAKER) (test whvo=7765) 100 WBC MORPHOLOGY (BEAKER) (test epbx=779) Normal PLT MORPHOLOGY (BEAKER) (test ajbh=750) Normal ANISOCYTOSIS (BEAKER) (test qsma=269) 2+ moderate MICROCYTES (BEAKER) (test ierh=626) 2+ moderate ARTIFACT (CELLAVISION)(BEAKER) (test inbo=7793) Present PLATELET CONCENTRATION (CELLAVISION)(BEAKER) Adequate (test cfyz=7837) Received comment: User comments: Slide comments:RAD, CHEST, 1 VIEW, NON [id number] 05:48:00Reason for exam:->postop laryngectomy with trachShould this be performed at the bedside?->YesFINAL REPORT RAD, CHEST, 1 VIEW, NON DEPT INDICATION: postop laryngectomy with trach COMPARISON: July 10, 2018 FINDINGS: Portable frontal view of the chest. IMPRESSION: Support Lines: Tracheostomy. Stent projects over the left upper quadrant. Lungs and pleura: Right lower lobe airspace disease, favored to represent atelectasis although infection should be excluded clinically. Tiny right effusion cannot be excluded. No pneumothorax.Heart and mediastinum: Stable contours. Additional findings: None. Signed: Lui [place] Verified Date/Time: 2018 05:48:22 Reading Location: [address] Neuro Reading Room POCT-GLUCOSE [id number] 05:47:00 Test Item Value Reference Range Comments POC-GLUCOSE METER (BEAKER) 177 mg/dL 70-[address] [facility] [address] [facility] (test wuyt=5049) [facility] [address] [id number] 04:29:00 Test Item Value Reference Range Comments PHOSPHORUS (BEAKER) (test wxbn=043) 2.3 mg/dL 2.3-4.7 [id number] 04:29:00 Test Item Value Reference Range Comments MAGNESIUM (BEAKER) (test jblz=373) 1.7 mg/dL 1.6-2.6 BASIC METABOLIC [id number] 04:29:00 Test Item Value Reference Range Comments SODIUM (BEAKER) (test 136 meq/L 136-145 dlij=493) POTASSIUM (BEAKER) (test 3.7 meq/L 3.5-5.1 qcnq=887) CHLORIDE (BEAKER) (test 103 meq/L 98-107 enmg=146) CO2 (BEAKER) (test 24 meq/L 22-29 cjea=315) BLOOD UREA NITROGEN 7 mg/dL 7-21 (BEAKER) (test mruk=965) CREATININE (BEAKER) (test 0.73 mg/dL 0.57-1.25 zbyd=296) GLUCOSE RANDOM (BEAKER) 179 mg/dL 70-105 (test skzh=970) CALCIUM (BEAKER) (test 9.2 mg/dL 8.4-10.2 htca=322) EGFR (BEAKER) (test 115 mL/min/1.73 sq m ESTIMATED GFR IS NOT skav=7041) ACCURATE CREATININE CLEARANCE IN PREDICTING GLOMERULAR FILTRATION RATE. ESTIMATED GFR IS NOT APPLICABLE FOR DIALYSIS PATIENTS. [id number] 04:29:00 Test Item Value Reference Range Comments ALBUMIN (BEAKER) (test nfvn=3413) 3.8 g/dL 3.5-5.0 [id number] 04:22:00 Test Item Value Reference Range Comments PROTIME (BEAKER) (test bqgr=190) 14.5 seconds 11.7-14.7 INR (BEAKER) (test rpgp=383) 1.1 <=5.9 PARTIAL THROMBOPLASTIN TIME (BEAKER) (test 42.0 seconds 22.5-36.0 eqtp=407) RECOMMENDED COUMADIN/WARFARIN INR THERAPY RANGESSTANDARD DOSE: 2.0 - 3.0 Includes: PROPHYLAXIS forvenous thrombosis, systemic embolization; TREATMENT for venous thrombosis and/or pulmonary embolus.HIGH RISK: Target INR is 2.5-3.5 for patients with mechanical heart valves.POCT-GLUCOSE [id number] 23:55:00 Test Item Value Reference Range Comments POC-GLUCOSE METER (BEAKER) 159 mg/dL 70-[address] [facility] [address] [place] [address] (test hmvd=1718) [facility] [address] [id number] 19:41:00 Test Item Value Reference Range Comments THYROID STIMULATING HORMONE (BEAKER) (test 6.82 uIU/mL 0.35-4.94 knvj=862) [id number] 19:26:00 Test Item Value Reference Range Comments PHOSPHORUS (BEAKER) (test jqff=747) 4.9 mg/dL 2.3-4.7 Postop labsPostop labsPostop labsPostop [id number] 19:26:00 Test Item Value Reference Range Comments MAGNESIUM (BEAKER) (test kmvi=935) 1.9 mg/dL 1.6-2.6 Postop labsPostop labsPostop labsPostop labsBASIC METABOLIC [id number] 19: 26:00 Test Item Value Reference Range Comments SODIUM (BEAKER) (test 140 meq/L 136-145 mdyp=297) POTASSIUM (BEAKER) (test 4.6 meq/L 3.5-5.1 dkbs=092) CHLORIDE (BEAKER) (test 107 meq/L 98-107 mvnh=104) CO2 (BEAKER) (test 26 meq/L 22-29 wggj=530) BLOOD UREA NITROGEN 8 mg/dL 7-21 (BEAKER) (test jfur=657) CREATININE (BEAKER) (test 0.77 mg/dL 0.57-1.25 dkbg=873) GLUCOSE RANDOM (BEAKER) 109 mg/dL 70-105 (test mhbl=721) CALCIUM (BEAKER) (test 9.4 mg/dL 8.4-10.2 slew=710) EGFR (BEAKER) (test 108 mL/min/1.73 sq m ESTIMATED GFR IS NOT uesl=4775) ACCURATE CREATININE CLEARANCE IN PREDICTING GLOMERULAR FILTRATION RATE. ESTIMATED GFR IS NOT APPLICABLE FOR DIALYSIS PATIENTS. Postop labsPostop labsPostop labsPostop [id number] 19:26:00 Test Item Value Reference Range Comments ALBUMIN (BEAKER) (test myem=4410) 3.9 g/dL 3.5-5.0 Postop labsPostop labsPostop labsPostop [id number] 19:24:00 Test Item Value Reference Range Comments PREALBUMIN (BEAKER) (test 17 mg/dL 14-45 Specimen slightly hemolyzed nole=148) PTH, [id number] 19:23:00 Test Item Value Reference Range Comments PARATHYROID HORMONE INTACT (BEAKER) (test 16.1 pg/mL 8.5-72.5 hqxv=315) Postop LabsCBC W/PLT COUNT & AUTO [id number] 18:58:00 Test Item Value Reference Range Comments WHITE BLOOD CELL COUNT (BEAKER) (test hxbt=365) 13.3 K/ L 3.5-10.5 RED BLOOD CELL COUNT (BEAKER) (test omxd=379) 3.50 M/ L 4.63-6.08 HEMOGLOBIN (BEAKER) (test qsvf=826) 10.8 GM/DL 13.7-17.5 HEMATOCRIT (BEAKER) (test rmza=798) 34.1 % 40.1-51.0 MEAN CORPUSCULAR VOLUME (BEAKER) (test imwd=962) 97.4 fL 79.0-92.2 MEAN CORPUSCULAR HEMOGLOBIN (BEAKER) (test 30.9 pg 25.7-32.2 zfij=874) MEAN CORPUSCULAR HEMOGLOBIN CONC (BEAKER) (test 31.7 GM/DL 32.3-36.5 psfp=803) RED CELL DISTRIBUTION WIDTH (BEAKER) (test 15.1 % 11.6-14.4 gsds=958) PLATELET COUNT (BEAKER) (test wtgz=760) 278 K/CU MM 150-450 MEAN PLATELET VOLUME (BEAKER) (test mwrc=681) 9.5 fL 9.4-12.4 NUCLEATED RED BLOOD CELLS (BEAKER) (test 0 /100 WBC 0-0 ekdx=106) NEUTROPHILS RELATIVE PERCENT (BEAKER) (test 84 % zbvi=883) LYMPHOCYTES RELATIVE PERCENT (BEAKER) (test 6 % xjvd=170) MONOCYTES RELATIVE PERCENT (BEAKER) (test 8 % dudx=214) EOSINOPHILS RELATIVE PERCENT (BEAKER) (test 1 % mlmh=419) BASOPHILS RELATIVE PERCENT (BEAKER) (test 0 % txqz=210) NEUTROPHILS ABSOLUTE COUNT (BEAKER) (test 11.15 K/ L 1.78-5.38 xpir=683) LYMPHOCYTES ABSOLUTE COUNT (BEAKER) (test 0.73 K/ L 1.32-3.57 vwpo=735) MONOCYTES ABSOLUTE COUNT (BEAKER) (test 1.04 K/ L 0.30-0.82 ellw=323) EOSINOPHILS ABSOLUTE COUNT (BEAKER) (test 0.15 K/ L 0.04-0.54 pczy=220) BASOPHILS ABSOLUTE COUNT (BEAKER) (test 0.05 K/ L 0.01-0.08 blrg=415) IMMATURE GRANULOCYTES-RELATIVE PERCENT (BEAKER) 1 % 0-1 (test ixfg=3538) BLOOD GAS, [id number] 15:31:00 Test Item Value Reference Range Comments PH ARTERIAL (BEAKER) (test mtjc=915) 7.37 7.35-7.45 PCO2 ARTERIAL (BEAKER) (test spyb=241) 46 mmHg 35-45 PO2 ARTERIAL (BEAKER) (test ebat=961) 273 mmHg 80-90 O2 SATURATION ARTERIAL (BEAKER) (test sltu=254) 99.6 % 96.0-97.0 HCO3 ARTERIAL (BEAKER) (test hqku=585) 26 mmol/L 21-29 BASE EXCESS ARTERIAL (BEAKER) (test rqmg=091) 0.4 mmol/L -2.0-3.0 PATIENT TEMPERATURE (BEAKER) (test qdjc=6587) 37.0 C FIO2 (BEAKER) (test zdrv=6210) 100.0 % HGB/HCT (H&H) - STAT [id number] 15:31:00 Test Item Value Reference Range Comments HEMOGLOBIN (BEAKER) (test kepd=004) 11.0 g/dL 13.0-16.8 HEMATOCRIT (BEAKER) (test tqmf=072) 32.0 % 40.0-50.0 GLUCOSE-STAT [id number] 15:30:00 Test Item Value Reference Range Comments GLUCOSE RANDOM (BEAKER) (test lkyx=208) 87 mg/dL 70-110 SODIUM NA-STAT [id number] 15:30:00 Test Item Value Reference Range Comments SODIUM (BEAKER) (test rori=127) 137 meq/L 135-148 POTASSIUM-STAT [id number] 15:30:00 Test Item Value Reference Range Comments POTASSIUM (BEAKER) (test cozo=974) 4.0 meq/L 3.6-5.5 ANG, INSERTION G TUBE, W/ [id number] 14:18:00Reason for exam:-> Gastrostomy tubeFINAL REPORT Fluoroscopic guided gastrostomy tube placement, 07/11/2018. Clinical History: Laryngeal cancer. Modality: Fluoroscopy. Tea Leaf Reader: Jack Lima MD. Substitute Bus Driver: Dilip Vivas MD. Conscious sedation: 2.0 mg Versed, 150 mcg fentanyl IV for moderate sedation. The patient was continuously monitored throughout the procedure by the nurse. Vital signs remained stable throughout. Physician intraservice time was 25 minutes. Other medication: Glucagon 1 mg IV. Estimated Blood Loss: Less than 1 cc. Specimen: None. Fluoroscopy Time: 2.7 min.Reference Air Kerma (Ka, r): 15.5 mGy. Technique: Discussion of risks, benefits, and alternatives were made with thepatient. The patient expressed understanding and agreed to proceed. After informed consent was obtained, which included the risks of bleeding, infection, injury to adjacent structures/ bowel, adverse medication reaction, the patient's abdomen was [...] injection of contrast confirmed positioning within the stomach.An Amplatz wire was advanced through the needle and curled within the fundus. After a small skin incision was made, the soft tissue tract was created with serial dilators. After the tract was dilated, a 14 Guyanese catheter was placed into the stomach. The wire was then removed, and the pigtail of the catheter was locked. The catheter was then secured onto the skin with 2-0 silk. The patient toleratedthe procedure well, without immediate complications. The patient's vital signs remained stable throughout the procedure. Patient disposition: The patient was discharged from the department in stable condition. Impression:Successful and uncomplicated fluoroscopic guided gastrostomy tube placement, with conscious sedation. Signed: Jack Lima Verified Date/Time: 07/11/2018 14:18 :50 Reading Location: [place] [address] Angio Body Reading Room Electronically signed by: JACK Rose 07/11/2018 02:18 PMTSH/FREE T4 IF [id number] 13:24:00 Test Item Value Reference Range Comments THYROID STIMULATING HORMONE (BEAKER) (test 2.37 uIU/mL 0.35-4.94 mlnk=012) RAD, CHEST, PA OR AP, 1 [id number] 11:03:00Reason for exam:->coughShould this be performed at the bedside?->NoFINAL REPORT AP chest HISTORY: Cough. COMPARISON: 06/17/2018. IMPRESSION: Tracheostomy tube present. Heart size normal. Lungs clear without effusion or pneumothorax. Intact skeleton. Signed: Ashok Whitaker Verified Date/Time: 2018 11:03:24 Reading Location: [address] Radiology Reading Room 11:03 AMCOMPREHENSIVE METABOLIC [id number] 10:52:00 Test Item Value Reference Range Comments TOTAL PROTEIN (BEAKER) 7.2 gm/dL 6.0-8.3 (test oaqb=468) ALBUMIN (BEAKER) (test 3.9 g/dL 3.5-5.0 pshj=5825) ALKALINE PHOSPHATASE 98 U/L 40-150 (BEAKER) (test rkvc=170) BILIRUBIN TOTAL (BEAKER) 0.4 mg/dL 0.2-1.2 (test fxxs=435) SODIUM (BEAKER) (test 141 meq/L 136-145 tuxy=464) POTASSIUM (BEAKER) (test 4.4 meq/L 3.5-5.1 sorb=984) CHLORIDE (BEAKER) (test 109 meq/L 98-107 ryop=478) CO2 (BEAKER) (test 24 meq/L 22-29 ueir=289) BLOOD UREA NITROGEN 14 mg/dL 7-21 (BEAKER) (test lkks=294) CREATININE (BEAKER) (test 0.78 mg/dL 0.57-1.25 heka=944) GLUCOSE RANDOM (BEAKER) 107 mg/dL 70-105 (test msjw=952) CALCIUM (BEAKER) (test 9.4 mg/dL 8.4-10.2 urnc=281) AST (SGOT) (BEAKER) (test 17 U/L 5-34 ynmv=159) ALT (SGPT) (BEAKER) (test 17 U/L 6-55 fwni=228) EGFR (BEAKER) (test 106 mL/min/1.73 sq ESTIMATED GFR IS NOT gvpf=5132) m ACCURATE CREATININE CLEARANCE IN PREDICTING GLOMERULAR FILTRATION RATE. ESTIMATED GFR IS NOT APPLICABLE FOR DIALYSIS PATIENTS. CBC W/PLT COUNT & AUTO [id number] 10:32:00 Test Item Value Reference Range Comments WHITE BLOOD CELL COUNT (BEAKER) (test yvlv=885) 10.8 K/ L 3.5-10.5 RED BLOOD CELL COUNT (BEAKER) (test wvtr=881) 4.08 M/ L 4.63-6.08 HEMOGLOBIN (BEAKER) (test vpbk=731) 12.6 GM/DL 13.7-17.5 HEMATOCRIT (BEAKER) (test kclo=442) 39.4 % 40.1-51.0 MEAN CORPUSCULAR VOLUME (BEAKER) (test phyf=116) 96.6 fL 79.0-92.2 MEAN CORPUSCULAR HEMOGLOBIN (BEAKER) (test 30.9 pg 25.7-32.2 rgng=643) MEAN CORPUSCULAR HEMOGLOBIN CONC (BEAKER) (test 32.0 GM/DL 32.3-36.5 ivwl=043) RED CELL DISTRIBUTION WIDTH (BEAKER) (test 15.3 % 11.6-14.4 wyev=844) PLATELET COUNT (BEAKER) (test xiua=407) 321 K/CU MM 150-450 MEAN PLATELET VOLUME (BEAKER) (test tzmi=170) 9.9 fL 9.4-12.4 NUCLEATED RED BLOOD CELLS (BEAKER) (test 0 /100 WBC 0-0 halx=980) NEUTROPHILS RELATIVE PERCENT (BEAKER) (test 76 % udeq=136) LYMPHOCYTES RELATIVE PERCENT (BEAKER) (test 7 % vihl=088) MONOCYTES RELATIVE PERCENT (BEAKER) (test 10 % kugp=839) EOSINOPHILS RELATIVE PERCENT (BEAKER) (test 2 % wqeg=362) BASOPHILS RELATIVE PERCENT (BEAKER) (test 1 % cmxt=573) NEUTROPHILS ABSOLUTE COUNT (BEAKER) (test 8.18 K/ L 1.78-5.38 knmz=662) LYMPHOCYTES ABSOLUTE COUNT (BEAKER) (test 0.79 K/ L 1.32-3.57 hsut=585) MONOCYTES ABSOLUTE COUNT (BEAKER) (test 1.04 K/ L 0.30-0.82 kkeu=363) EOSINOPHILS ABSOLUTE COUNT (BEAKER) (test 0.16 K/ L 0.04-0.54 wdip=181) BASOPHILS ABSOLUTE COUNT (BEAKER) (test 0.13 K/ L 0.01-0.08 yyjj=772) IMMATURE GRANULOCYTES-RELATIVE PERCENT (BEAKER) 5 % 0-1 (test zpxb=3637) [id number] 10:30:00 Test Item Value Reference Range Comments PROTIME (BEAKER) (test ollz=826) 14.6 seconds 11.7-14.7 INR (BEAKER) (test eoxt=564) 1.1 <=5.9 PARTIAL THROMBOPLASTIN TIME (BEAKER) (test 34.3 seconds 22.5-36.0 kfau=263) RECOMMENDED COUMADIN/WARFARIN INR THERAPY RANGESSTANDARD DOSE: 2.0 - 3.0 Includes: PROPHYLAXIS forvenous thrombosis, systemic embolization; TREATMENT for venous thrombosis and/or pulmonary embolus.HIGH RISK: Target INR is 2.5-3.5 for patients with mechanical heart valves.BLOOD [id number] 20:01:00 Test Item Value Reference Range Comments CULTURE (BEAKER) (test jidf=8340) No growth in 5 days BLOOD [id number] 20:01:00 Test Item Value Reference Range Comments CULTURE (BEAKER) (test lzum=4337) No growth in 5 days CBC W/PLT COUNT & AUTO [id number] 12:54:00 Test Item Value Reference Range Comments WHITE BLOOD CELL COUNT (BEAKER) (test kato=872) 6.6 K/ L 3.5-10.5 RED BLOOD CELL COUNT (BEAKER) (test xvwx=940) 3.84 M/ L 4.63-6.08 HEMOGLOBIN (BEAKER) (test fnny=193) 11.9 GM/DL 13.7-17.5 HEMATOCRIT (BEAKER) (test npud=760) 37.1 % 40.1-51.0 MEAN CORPUSCULAR VOLUME (BEAKER) (test dkfa=363) 96.6 fL 79.0-92.2 MEAN CORPUSCULAR HEMOGLOBIN (BEAKER) (test 31.0 pg 25.7-32.2 lzoj=876) MEAN CORPUSCULAR HEMOGLOBIN CONC (BEAKER) (test 32.1 GM/DL 32.3-36.5 gmge=172) RED CELL DISTRIBUTION WIDTH (BEAKER) (test 15.1 % 11.6-14.4 cois=504) PLATELET COUNT (BEAKER) (test gswa=260) 282 K/CU MM 150-450 MEAN PLATELET VOLUME (BEAKER) (test jnyu=904) 10.3 fL 9.4-12.4 NUCLEATED RED BLOOD CELLS (BEAKER) (test 0 /100 WBC 0-0 csgl=820) (CELLAVISION MANUAL DIFF)2018-06-21 12:54:00 Test Item Value Reference Range Comments NEUTROPHILS - REL (CELLAVISION)(BEAKER) (test 63 % ivgg=5418) LYMPHOCYTES - REL (CELLAVISION)(BEAKER) (test 10 % nlix=4925) MONOCYTES - REL (CELLAVISION)(BEAKER) (test 8 % khev=1565) EOSINOPHILS - REL (CELLAVISION)(BEAKER) (test 2 % ltit=2366) BASOPHILS - REL (CELLAVISION)(BEAKER) (test 2 % vcpv=3710) METAMYELOCYTES - REL (CELLAVISION)(BEAKER) (test 2 % 0-0 inpd=3172) BANDS - REL (CELLAVISION)(BEAKER) (test fgex=5873) 12 % 0-10 NEUTROPHILS - ABS (CELLAVISION)(BEAKER) (test 4.16 K/ul 1.78-5.38 entv=6507) LYMPHOCYTES - ABS (CELLAVISION)(BEAKER) (test 0.66 K/ul 1.32-3.57 ehnm=1156) MONOCYTES - ABS (CELLAVISION)(BEAKER) (test 0.53 K/uL 0.30-0.82 elpw=2776) EOSINOPHILS - ABS (CELLAVISION)(BEAKER) (test 0.13 K/uL 0.04-0.54 kvah=8294) BASOPHILS - ABS (CELLAVISION)(BEAKER) (test 0.13 K/uL 0.01-0.08 qfxl=9002) METAMYELOCYTES - ABS (CELLAVISION)(BEAKER) (test 0.13 K/uL 0.00-0.00 iske=1742) BANDS - ABS (CELLAVISION)(BEAKER) (test wxhp=1645) 0.79 K/uL 0.00-0.80 TOTAL COUNTED (BEAKER) (test wpjb=9322) 100 WBC MORPHOLOGY (BEAKER) (test xvmb=119) Normal GIANT PLATELETS (BEAKER) (test qnzy=399) Present ANISOCYTOSIS (BEAKER) (test bngc=835) 1+ few ARTIFACT (CELLAVISION)(BEAKER) (test axhl=4982) Present PLATELET CONCENTRATION (CELLAVISION)(BEAKER) (test Adequate ahhg=5657) Received comment: User comments: Slide comments:BASIC METABOLIC [id number] 06:44:00 Test Item Value Reference Range Comments SODIUM (BEAKER) (test 137 meq/L 136-145 mqqd=025) POTASSIUM (BEAKER) (test 4.0 meq/L 3.5-5.1 bqqh=594) CHLORIDE (BEAKER) (test 102 meq/L 98-107 ipow=123) CO2 (BEAKER) (test 27 meq/L 22-29 ewia=618) BLOOD UREA NITROGEN 9 mg/dL 7-21 (BEAKER) (test whey=230) CREATININE (BEAKER) (test 0.66 mg/dL 0.57-1.25 cpcm=664) GLUCOSE RANDOM (BEAKER) 99 mg/dL 70-105 (test oqug=684) CALCIUM (BEAKER) (test 9.0 mg/dL 8.4-10.2 wpxc=015) EGFR (BEAKER) (test 129 mL/min/1.73 sq m ESTIMATED GFR IS NOT wjqx=5871) ACCURATE CREATININE CLEARANCE IN PREDICTING GLOMERULAR FILTRATION RATE. ESTIMATED GFR IS NOT APPLICABLE FOR DIALYSIS PATIENTS. BLOOD [id number] 12:01:00 Test Item Value Reference Range Comments CULTURE (BEAKER) (test yjko=7073) No growth in 5 days CBC W/PLT COUNT & AUTO [id number] 11:06:00 Test Item Value Reference Range Comments WHITE BLOOD CELL COUNT (BEAKER) (test znpd=323) 6.7 K/ L 3.5-10.5 RED BLOOD CELL COUNT (BEAKER) (test djds=468) 3.88 M/ L 4.63-6.08 HEMOGLOBIN (BEAKER) (test fqes=636) 12.4 GM/DL 13.7-17.5 HEMATOCRIT (BEAKER) (test bqcs=990) 36.8 % 40.1-51.0 MEAN CORPUSCULAR VOLUME (BEAKER) (test cllf=613) 94.8 fL 79.0-92.2 MEAN CORPUSCULAR HEMOGLOBIN (BEAKER) (test 32.0 pg 25.7-32.2 ptiu=933) MEAN CORPUSCULAR HEMOGLOBIN CONC (BEAKER) (test 33.7 GM/DL 32.3-36.5 ajbe=695) RED CELL DISTRIBUTION WIDTH (BEAKER) (test 15.3 % 11.6-14.4 lpnh=992) PLATELET COUNT (BEAKER) (test vvvs=655) 218 K/CU MM 150-450 MEAN PLATELET VOLUME (BEAKER) (test vimy=324) 10.5 fL 9.4-12.4 NUCLEATED RED BLOOD CELLS (BEAKER) (test 0 /100 WBC 0-0 ndoq=508) (CELLAVISION MANUAL DIFF)[id number] 11:06:00 Test Item Value Reference Range Comments NEUTROPHILS - REL (CELLAVISION)(BEAKER) (test 77 % lvdh=5075) LYMPHOCYTES - REL (CELLAVISION)(BEAKER) (test 6 % qkyf=0547) MONOCYTES - REL (CELLAVISION)(BEAKER) (test 3 % moep=4799) EOSINOPHILS - REL (CELLAVISION)(BEAKER) (test 2 % qyjx=6069) BANDS - REL (CELLAVISION)(BEAKER) (test tmjs=3111) 10 % 0-10 ATYPICAL LYMPHOCYTES - REL (CELLAVISION)(BEAKER) 2 % 0-0 (test ausj=9609) NEUTROPHILS - ABS (CELLAVISION)(BEAKER) (test 5.16 K/ul 1.78-5.38 weiq=1998) LYMPHOCYTES - ABS (CELLAVISION)(BEAKER) (test 0.40 K/ul 1.32-3.57 snrm=2020) MONOCYTES - ABS (CELLAVISION)(BEAKER) (test 0.20 K/uL 0.30-0.82 cktz=1436) EOSINOPHILS - ABS (CELLAVISION)(BEAKER) (test 0.13 K/uL 0.04-0.54 jrdl=2672) BANDS - ABS (CELLAVISION)(BEAKER) (test bpvi=1818) 0.67 K/uL 0.00-0.80 ATYPICAL LYMPHOCYTES - ABS (CELLAVISION)(BEAKER) 0.13 K/uL 0.00-0.00 (test zndm=3641) TOTAL COUNTED (BEAKER) (test ddfa=0657) 100 CLUMPED PLATELETS (BEAKER) (test bgxy=820) Present SMUDGE CELLS (BEAKER) (test fppw=9277) Present GIANT PLATELETS (BEAKER) (test rowr=573) Present TOXIC GRANULATION (BEAKER) (test xxiz=480) Present ANISOCYTOSIS (BEAKER) (test mlcg=790) 1+ few PLATELET CONCENTRATION (CELLAVISION)(BEAKER) (test Adequate eiuy=6205) Received comment: User comments: Slide comments:BASIC METABOLIC [id number] 08:11:00 Test Item Value Reference Range Comments SODIUM (BEAKER) (test 134 meq/L 136-145 pnud=426) POTASSIUM (BEAKER) (test 3.8 meq/L 3.5-5.1 vyzj=768) CHLORIDE (BEAKER) (test 97 meq/L 98-107 rats=181) CO2 (BEAKER) (test 29 meq/L 22-29 ofxe=515) BLOOD UREA NITROGEN 8 mg/dL 7-21 (BEAKER) (test gsqb=316) CREATININE (BEAKER) (test 0.65 mg/dL 0.57-1.25 kqdc=672) GLUCOSE RANDOM (BEAKER) 93 mg/dL 70-105 (test hssv=580) CALCIUM (BEAKER) (test 9.0 mg/dL 8.4-10.2 kxil=540) EGFR (BEAKER) (test 132 mL/min/1.73 sq m ESTIMATED GFR IS NOT xcll=2436) ACCURATE CREATININE CLEARANCE IN PREDICTING GLOMERULAR FILTRATION RATE. ESTIMATED GFR IS NOT APPLICABLE FOR DIALYSIS PATIENTS. BLOOD [id number] 08:01:00 Test Item Value Reference Range Comments CULTURE (BEAKER) (test qoim=9051) No growth in 5 days BLOOD [id number] 02:00:00 Test Item Value Reference Range Comments CULTURE (BEAKER) (test ssmj=7174) No growth in 5 days BLOOD [id number] 02:00:00 Test Item Value Reference Range Comments CULTURE (BEAKER) (test rrgh=4967) No growth in 5 days CBC W/PLT COUNT & AUTO [id number] 15:32:00 Test Item Value Reference Range Comments WHITE BLOOD CELL COUNT (BEAKER) (test ycxz=238) 6.4 K/ L 3.5-10.5 RED BLOOD CELL COUNT (BEAKER) (test gdwd=903) 4.16 M/ L 4.63-6.08 HEMOGLOBIN (BEAKER) (test ezlh=523) 13.2 GM/DL 13.7-17.5 HEMATOCRIT (BEAKER) (test temw=971) 39.5 % 40.1-51.0 MEAN CORPUSCULAR VOLUME (BEAKER) (test seci=372) 95.0 fL 79.0-92.2 MEAN CORPUSCULAR HEMOGLOBIN (BEAKER) (test 31.7 pg 25.7-32.2 hihg=894) MEAN CORPUSCULAR HEMOGLOBIN CONC (BEAKER) (test 33.4 GM/DL 32.3-36.5 vssh=078) RED CELL DISTRIBUTION WIDTH (BEAKER) (test 15.7 % 11.6-14.4 onpk=163) PLATELET COUNT (BEAKER) (test pyxd=366) 148 K/CU MM 150-450 MEAN PLATELET VOLUME (BEAKER) (test aphp=177) 10.7 fL 9.4-12.4 NUCLEATED RED BLOOD CELLS (BEAKER) (test 0 /100 WBC 0-0 vzwb=088) (CELLAVISION MANUAL DIFF)2018-06-19 15:32:00 Test Item Value Reference Range Comments NEUTROPHILS - REL (CELLAVISION)(BEAKER) (test 73 % dcst=1958) LYMPHOCYTES - REL (CELLAVISION)(BEAKER) (test 3 % mlls=5615) MONOCYTES - REL (CELLAVISION)(BEAKER) (test 3 % olav=1002) METAMYELOCYTES - REL (CELLAVISION)(BEAKER) (test 2 % 0-0 qrnn=5631) MYELOCYTES - REL (CELLAVISION)(BEAKER) (test 1 % 0-0 afmn=1366) BANDS - REL (CELLAVISION)(BEAKER) (test 16 % 0-10 gjff=9638) NEUTROPHILS - ABS (CELLAVISION)(BEAKER) (test 4.67 K/ul 1.78-5.38 ygfy=3048) LYMPHOCYTES - ABS (CELLAVISION)(BEAKER) (test 0.19 K/ul 1.32-3.57 mzqy=5000) MONOCYTES - ABS (CELLAVISION)(BEAKER) (test 0.19 K/uL 0.30-0.82 flfg=9605) METAMYELOCYTES - ABS (CELLAVISION)(BEAKER) (test 0.13 K/uL 0.00-0.00 iwxq=3035) MYELOCYTES-ABS (CELLAVISION)(BEAKER) (test 0.06 K/uL 0.00-0.00 asbf=1621) BANDS - ABS (CELLAVISION)(BEAKER) (test 1.02 K/uL 0.00-0.80 jtrm=8392) TOTAL COUNTED (BEAKER) (test wmqr=2985) 100 GIANT PLATELETS (BEAKER) (test osyl=997) Present TOXIC GRANULATION (BEAKER) (test hznc=777) Present PLASMACYTOID LYMPHS(BEAKER) (test jlgk=1919) Present POLYCHROMATOPHILLIC RBCS(BEAKER) (test gmxt=641) 1+ few ANISOCYTOSIS (BEAKER) (test osrz=879) 2+ moderate MICROCYTES (BEAKER) (test fepx=149) 2+ moderate POIKILOCYTES (BEAKER) (test srld=979) 1+ few SPHEROCYTES (BEAKER) (test myed=067) 1+ few ARTIFACT (CELLAVISION)(BEAKER) (test zwnp=7784) Present HELMET CELLS (CELLAVISION)(BEAKER) (test 1+ few ioyd=4574) PLATELET CONCENTRATION (CELLAVISION)(BEAKER) Decreased (test olrg=5403) Received comment: User comments: Slide comments:BASIC METABOLIC [id number] 07:38:00 Test Item Value Reference Range Comments SODIUM (BEAKER) (test 132 meq/L 136-145 xvze=371) POTASSIUM (BEAKER) (test 3.5 meq/L 3.5-5.1 sfsv=390) CHLORIDE (BEAKER) (test 95 meq/L 98-107 pdqv=302) CO2 (BEAKER) (test 27 meq/L 22-29 qtsx=431) BLOOD UREA NITROGEN 11 mg/dL 7-21 (BEAKER) (test tdfe=833) CREATININE (BEAKER) (test 0.61 mg/dL 0.57-1.25 jiei=573) GLUCOSE RANDOM (BEAKER) 94 mg/dL 70-105 (test lxme=662) CALCIUM (BEAKER) (test 8.8 mg/dL 8.4-10.2 tojb=289) EGFR (BEAKER) (test 142 mL/min/1.73 sq m ESTIMATED GFR IS NOT khrf=9163) ACCURATE CREATININE CLEARANCE IN PREDICTING GLOMERULAR FILTRATION RATE. ESTIMATED GFR IS NOT APPLICABLE FOR DIALYSIS PATIENTS. CBC W/PLT COUNT & AUTO [id number] 12:37:00 Test Item Value Reference Range Comments WHITE BLOOD CELL COUNT (BEAKER) (test tdtz=037) 8.5 K/ L 3.5-10.5 RED BLOOD CELL COUNT (BEAKER) (test xaxh=916) 4.16 M/ L 4.63-6.08 HEMOGLOBIN (BEAKER) (test fheg=374) 13.0 GM/DL 13.7-17.5 HEMATOCRIT (BEAKER) (test ynsx=767) 38.5 % 40.1-51.0 MEAN CORPUSCULAR VOLUME (BEAKER) (test friu=590) 92.5 fL 79.0-92.2 MEAN CORPUSCULAR HEMOGLOBIN (BEAKER) (test 31.3 pg 25.7-32.2 pdiu=098) MEAN CORPUSCULAR HEMOGLOBIN CONC (BEAKER) (test 33.8 GM/DL 32.3-36.5 gagb=485) RED CELL DISTRIBUTION WIDTH (BEAKER) (test 15.2 % 11.6-14.4 ywwm=901) PLATELET COUNT (BEAKER) (test lbui=274) 145 K/CU MM 150-450 MEAN PLATELET VOLUME (BEAKER) (test txfu=565) 10.3 fL 9.4-12.4 NUCLEATED RED BLOOD CELLS (BEAKER) (test 0 /100 WBC 0-0 ppgw=588) (CELLAVISION MANUAL DIFF)2018-06-18 12:37:00 Test Item Value Reference Range Comments NEUTROPHILS - REL (CELLAVISION)(BEAKER) (test 72 % rdpg=6338) LYMPHOCYTES - REL (CELLAVISION)(BEAKER) (test 2 % dtpf=1685) BANDS - REL (CELLAVISION)(BEAKER) (test wudl=8750) 25 % 0-10 ATYPICAL LYMPHOCYTES - REL (CELLAVISION)(BEAKER) 1 % 0-0 (test okql=9188) NEUTROPHILS - ABS (CELLAVISION)(BEAKER) (test 6.12 K/ul 1.78-5.38 lnij=2972) LYMPHOCYTES - ABS (CELLAVISION)(BEAKER) (test 0.17 K/ul 1.32-3.57 ldzv=8268) BANDS - ABS (CELLAVISION)(BEAKER) (test nnpn=9368) 2.13 K/uL 0.00-0.80 ATYPICAL LYMPHOCYTES - ABS (CELLAVISION)(BEAKER) 0.09 K/uL 0.00-0.00 (test gbav=1572) TOTAL COUNTED (BEAKER) (test qwts=1037) 100 RBC MORPHOLOGY (BEAKER) (test qclg=989) Normal SMUDGE CELLS (BEAKER) (test cndp=1135) Present GIANT PLATELETS (BEAKER) (test sfrl=445) Present TOXIC GRANULATION (BEAKER) (test peun=818) Present PLATELET CONCENTRATION (CELLAVISION)(BEAKER) (test Decreased ayeu=3470) Received comment: User comments: Slide comments:BASIC METABOLIC [id number] 12:04:00 Test Item Value Reference Range Comments SODIUM (BEAKER) (test 130 meq/L 136-145 rizf=561) POTASSIUM (BEAKER) (test 3.1 meq/L 3.5-5.1 ufkj=346) CHLORIDE (BEAKER) (test 93 meq/L 98-107 dxsz=970) CO2 (BEAKER) (test 27 meq/L 22-29 voev=321) BLOOD UREA NITROGEN < mg/dL 7-21 (BEAKER) (test vzjw=615) CREATININE (BEAKER) (test 0.66 mg/dL 0.57-1.25 pttl=241) GLUCOSE RANDOM (BEAKER) 157 mg/dL 70-105 (test whfp=512) CALCIUM (BEAKER) (test 8.6 mg/dL 8.4-10.2 rkrk=846) EGFR (BEAKER) (test 129 mL/min/1.73 sq m ESTIMATED GFR IS NOT ixgd=2162) ACCURATE CREATININE CLEARANCE IN PREDICTING GLOMERULAR FILTRATION RATE. ESTIMATED GFR IS NOT APPLICABLE FOR DIALYSIS PATIENTS. VANCOMYCIN LEVEL, [id number] 12:02:00 Test Item Value Reference Range Comments VANCOMYCIN RANDOM (BEAKER) (test ikvo=259) 1.3 ug/mL Reference Range: No [id number] 12:00:00 Test Item Value Reference Range Comments MAGNESIUM (BEAKER) (test ptdd=191) 2.2 mg/dL 1.6-2.6 SPUTUM CULTURE + GRAM [id number] 11:45:00 Test Item Value Reference Range Comments CULTURE (BEAKER) (test PSEUDOMONAS AERUGINOSA 4+ Pseudomonas wkpw=4264) aeruginosa Amikacin (test code=1) Susceptible 0-16 , Resistant <0 or >16 Aztreonam (test Susceptible 0-8 , code=32) Resistant <0 or >8 Cefepime (test code=51) Susceptible 0-8 , Resistant <0 or >8 Ceftazidime (test Susceptible 0-8 , code=27) Resistant <0 or >8 Ciprofloxacin (test Susceptible 0-1 , code=7) Resistant <0 or >1 Gentamicin (test Susceptible 0-4 , code=18) Resistant <0 or >4 Imipenem (test code=19) Susceptible 0-2 , Resistant <0 or >2 Levofloxacin (test Susceptible 0-2 , code=22) Resistant <0 or >2 Meropenem (test Susceptible 0-2 , code=34) Resistant <0 or >2 Piperacillin (test Susceptible 0-16 , code=24) Resistant <0 or >16 Piperacillin + Susceptible 0-16 , Tazobactam (test Resistant <0 or >16 code=29) Tobramycin (test Susceptible 0-4 , code=25) Resistant <0 or >4 CULTURE (BEAKER) (test PSEUDOMONAS AERUGINOSA 4+ Pseudomonas hwtt=9118) aeruginosa Amikacin (test code=1) Susceptible 0-16 , Resistant <0 or >16 Aztreonam (test Susceptible 0-8 , code=32) Resistant <0 or >8 Cefepime (test code=51) Susceptible 0-8 , Resistant <0 or >8 Ceftazidime (test Susceptible 0-8 , code=27) Resistant <0 or >8 Ciprofloxacin (test Susceptible 0-1 , code=7) Resistant <0 or >1 Gentamicin (test Susceptible 0-4 , code=18) Resistant <0 or >4 Imipenem (test code=19) Susceptible 0-2 , Resistant <0 or >2 Levofloxacin (test Susceptible 0-2 , code=22) Resistant <0 or >2 Meropenem (test Susceptible 0-2 , code=34) Resistant <0 or >2 Piperacillin (test Susceptible 0-16 , code=24) Resistant <0 or >16 Piperacillin + Susceptible 0-16 , Tazobactam (test Resistant <0 or >16 code=29) Tobramycin (test Susceptible 0-4 , code=25) Resistant <0 or >4 GRAM STAIN RESULT 1+ WBCs (BEAKER) (test pzjt=7228) GRAM STAIN RESULT 15-20 epithelial cells (BEAKER) (test qisr=485066) GRAM STAIN RESULT <1+ gram negative (BEAKER) (test coccobacilli gfno=654227) GRAM STAIN RESULT <1+ gram positive (BEAKER) (test cocci in pairs ingy=859726) GRAM STAIN RESULT <1+ yeast with (BEAKER) (test pseudohyphae ovnn=929725) GRAM STAIN RESULT 1+ gram variable rods (BEAKER) (test wpym=103277) 1+ Normal respiratory maximo presentC W/PLT COUNT & AUTO [id number] 18:36:00 Test Item Value Reference Range Comments WHITE BLOOD CELL COUNT (BEAKER) (test hvlg=917) 7.3 K/ L 3.5-10.5 RED BLOOD CELL COUNT (BEAKER) (test nwtn=846) 4.53 M/ L 4.63-6.08 HEMOGLOBIN (BEAKER) (test wwec=114) 14.4 GM/DL 13.7-17.5 HEMATOCRIT (BEAKER) (test ekth=548) 42.2 % 40.1-51.0 MEAN CORPUSCULAR VOLUME (BEAKER) (test papo=746) 93.2 fL 79.0-92.2 MEAN CORPUSCULAR HEMOGLOBIN (BEAKER) (test 31.8 pg 25.7-32.2 kuzw=864) MEAN CORPUSCULAR HEMOGLOBIN CONC (BEAKER) (test 34.1 GM/DL 32.3-36.5 rtel=953) RED CELL DISTRIBUTION WIDTH (BEAKER) (test 15.0 % 11.6-14.4 xjfd=646) PLATELET COUNT (BEAKER) (test huhl=460) 170 K/CU MM 150-450 MEAN PLATELET VOLUME (BEAKER) (test feyl=143) 10.1 fL 9.4-12.4 NUCLEATED RED BLOOD CELLS (BEAKER) (test 0 /100 WBC 0-0 mqaz=608) NEUTROPHILS RELATIVE PERCENT (BEAKER) (test 92 % wiet=196) LYMPHOCYTES RELATIVE PERCENT (BEAKER) (test 4 % byqv=277) MONOCYTES RELATIVE PERCENT (BEAKER) (test 2 % feer=089) EOSINOPHILS RELATIVE PERCENT (BEAKER) (test 0 % qeee=860) BASOPHILS RELATIVE PERCENT (BEAKER) (test 0 % wqtx=686) NEUTROPHILS ABSOLUTE COUNT (BEAKER) (test 6.75 K/ L 1.78-5.38 fnid=418) LYMPHOCYTES ABSOLUTE COUNT (BEAKER) (test 0.27 K/ L 1.32-3.57 zftl=612) MONOCYTES ABSOLUTE COUNT (BEAKER) (test 0.15 K/ L 0.30-0.82 qcnn=172) EOSINOPHILS ABSOLUTE COUNT (BEAKER) (test 0.00 K/ L 0.04-0.54 wvuj=450) BASOPHILS ABSOLUTE COUNT (BEAKER) (test 0.02 K/ L 0.01-0.08 rnaq=462) IMMATURE GRANULOCYTES-RELATIVE PERCENT (BEAKER) 2 % 0-1 (test lvkz=4492) [id number] 14:37:00 Test Item Value Reference Range Comments PROCALCITONIN (BEAKER) (test komz=0548) 0.08 ng/mL <0.05 SEPSIS RISK (ng/mL)Low: 0.05-0.50Intermediate: 0.51-2.00High: & gt;=2.01LACTIC ACID, [id number] 13:43:00 Test Item Value Reference Range Comments LACTATE BLOOD VENOUS (2) 2.4 mmol/L 0.5-2.2 Specimen slightly hemolyzed (BEAKER) (test nmca=4233) TISSUE [id number] 13:24:00Surgical Pathology Report Case: [id number] Authorizing Provider: Jennifer Fraire MD Collected: 06/09/2018 1735 Ordering Location: [address] Received: 06/10/2018 0811 Cardiovascular Pathologist: Jennifer Hull MD Specimen: SoftTissue, Other, LEFT SUPRAGLOTTIC MASS LEFT SUPRAGLOTTIC MASS, LARYNGOSCOPIC BIOPSY: - ATYPICAL SQUAMOUS PROLIFERATION (SEE COMMENT) Signing Pathologist Direct Phone Line: These are superficial fragments with hyperplasia, keratosis and dysplasia. Note is made of thehistory of chemoradiation. Ulceration, inflammation, atypical stromal cells and necrosis seen, may be due to the effect of chemoradiation. Immunohistochemical studies for AE1/AE3 and p53 confirm that the atypical cells in the stroma are likely reactive stromal cells. No invasive carcinoma is seen. Thebiopsy may not be credit and collections representative of the entirelesion; Clinical correlation is recommended.22892; 55159; 08024Xpyawmgmd mass Left subglottic massThe specimen is received in a fluidless container labeled with patient information and labeled "left supraglottic mass" consisting of four fragments of red soft tissue ranging from 0.1 to 0.4 cm, submitted entirely A1. CG/pl PERFORMEDThe interpretation of this case included the use of immunohistochemistry or special stains. p53 and AE1/JQ1Ecybbfjmoljfswfegtqi technical testing was performed at [facility], Pathology Laboratory where it was developed and its performance characteristics were determined. It has not been cleared or approved by the U.S. Food and Drug Administration. The FDA has determined that such clearance or approval is not necessary. The test is used for clinical purposes. It should not be regarded as investigational or for research. This laboratory is certified under the Clinical Laboratory Improvement Amendments of 1988 (CLIA-88) as qualified to perform high complexity clinical laboratory testing.FL, ESOPH, SWALLOW FUNCTION , WITH CINE OR [id number] 12:08:00Reason for exam:->silent aspiration evaluationFINAL REPORT Modified barium swallow. CLINICAL HISTORY: silent aspiration evaluation. COMPARISON STUDY: None available. FINDINGS: Under the direction of patient's speech pathologist, the patient ingested thin barium, thick barium, barium-coated crackers and barium pur\\XE9\\ e. No evidence of laryngeal penetration or aspiration is seen with any of the consistencies. Please refer to the speech pathology notes for further discussion. Fluoroscopy time: 0.4 minutes. One image. Signed: Gaudencio Barrett MDReport Verified Date/Time: 06/17/2018 12:08:38 Reading Location: [address] Reading Room [id number] 09:44:00 Test Item Value Reference Range Comments MAGNESIUM (BEAKER) (test mdmr=876) 1.9 mg/dL 1.6-2.6 [id number] 09:44:00 Test Item Value Reference Range Comments PHOSPHORUS (BEAKER) (test bese=080) 2.9 mg/dL 2.3-4.7 RAD, CHEST, 1 VIEW, NON [id number] 08:16:00Reason for exam:->SOBShould this be performed at the bedside?->YesFINAL REPORT Chest one view. Clinical history: SOB Comparison: June 16, 2018 Discussion: A frontal chest is provided. Cardiomediastinal contours are unchanged. Tracheostomy tube is in stable position. Unchanged patchy bibasilar airspace opacities. There is mild degree of interstitial prominence that may reflect edema. No pneumothorax or large effusion. Signed: Roger Avelar MDReport Verified Date/Time: 06/17/2018 08:16:46 Reading Location: [facility] Radiology Reading Room BASIC METABOLIC [id number] 06:25:00 Test Item Value Reference Range Comments SODIUM (BEAKER) (test 134 meq/L 136-145 szfd=460) POTASSIUM (BEAKER) (test 3.7 meq/L 3.5-5.1 mstp=634) CHLORIDE (BEAKER) (test 95 meq/L 98-107 wiao=148) CO2 (BEAKER) (test 31 meq/L 22-29 pcqb=385) BLOOD UREA NITROGEN 15 mg/dL 7-21 (BEAKER) (test vlmn=380) CREATININE (BEAKER) (test 0.77 mg/dL 0.57-1.25 sold=351) GLUCOSE RANDOM (BEAKER) 89 mg/dL 70-105 (test ktkb=562) CALCIUM (BEAKER) (test 8.9 mg/dL 8.4-10.2 qvvs=958) EGFR (BEAKER) (test 108 mL/min/1.73 sq m ESTIMATED GFR IS NOT iymg=9950) ACCURATE CREATININE CLEARANCE IN PREDICTING GLOMERULAR FILTRATION RATE. ESTIMATED GFR IS NOT APPLICABLE FOR DIALYSIS PATIENTS. VANCOMYCIN LEVEL, [id number] 06:25:00 Test Item Value Reference Range Comments VANCOMYCIN RANDOM (BEAKER) (test bvvo=080) 9.6 ug/mL Reference Range: No NormalsDraw 30 min prior to scheduled dose, HOLD if level & gt; 20 mcg/mL, informMD.RESPIRATORY PANEL [id number] 12:23:00 Test Item Value Reference Range Comments HUMAN METAPNEUMOVIRUS Not detected Not detected, (BEAKER) (test ehhf=0305) Equivocal RHINOVIRUS (BEAKER) (test Not detected Not detected, iazj=7811) Equivocal INFLUENZA A (BEAKER) (test Not detected Not detected, vtxx=4758) Equivocal INFLUENZA A (NO SUBTYPE) Not detected, (test ikkn=6688) Equivocal INFLUENZA A SUBTYPE H1 Not detected, (BEAKER) (test uyyq=3479) Equivocal INFLUENZA A SUBTYPE H3 Not detected, (BEAKER) (test egzr=5742) Equivocal INFLUENZA A SUBTYPE H1-2009 Not detected, (BEAKER) (test opnl=0736) Equivocal INFLUENZA B (BEAKER) (test Not detected Not detected, lwsb=4895) Equivocal RESPIRATORY SYNCYTIAL VIRUS Not detected Not detected, (BEAKER) (test gebe=4951) Equivocal PARAINFLUENZA VIRUS 1 Not detected Not detected, (BEAKER) (test htun=9825) Equivocal PARAINFLUENZA VIRUS 2 Not detected Not detected, (BEAKER) (test kela=7009) Equivocal PARAINFLUENZA VIRUS 3 Not detected Not detected, (BEAKER) (test wdap=9333) Equivocal PARAINFLUENZA VIRUS 4 Not detected Not detected, (BEAKER) (test kbni=8575) Equivocal ADENOVIRUS (BEAKER) (test Not detected Not detected, ucal=0682) Equivocal CORONAVIRUS 229E (BEAKER) Detected Not detected, Droplet isolation. (test etxf=8397) Equivocal Consider stopping antibiotics. CORONAVIRUS HKU1 (BEAKER) Not detected Not detected, (test ermy=8838) Equivocal CORONAVIRUS NL63 (BEAKER) Not detected Not detected, (test scgc=5851) Equivocal CORONAVIRUS OC43 (BEAKER) Not detected Not detected, (test meud=6239) Equivocal BORDETELLA PERTUSSIS (BEAKER) Not detected Not detected, (test ljdv=9025) Equivocal CHLAMYDOPHILA PNEUMONIAE Not detected Not detected, (BEAKER) (test mcpu=4562) Equivocal MYCOPLASMA PNEUMONIAE Not detected Not detected, (BEAKER) (test mqqd=0385) Equivocal Other viruses and bacteria not targeted by this PCR panel cannot be excluded; therefore clinical correlation and follow up of serology, culture results, and other molecular studies is required. The results are not intended to be used as the sole means for clinical diagnosis or patient management decisions. This sample was tested at the [facility] Molecular Diagnostics Laboratory using the WiztangoArray Respiratory Panel. It is FDA cleared and has been verified and approved by the [facility] Molecular Diagnostics Laboratory for clinical use on nasal swab specimens. It is not FDA-cleared for use on bronchial wash/lavage samples. However, for this sample type, validation was performed and test characteristics were determined and approved, by [facility] laboratory for clinical use under the Clinical Laboratory Improvement Amendments (CLIA) of 1988 requirements. Therefore, FDA clearance isnot required. This laboratory is CLIA-certified and [employer] ([employer])-accredited to perform high complexity testing.CBC W/PLT COUNT & AUTO [id number] 11:27:00 Test Item Value Reference Range Comments WHITE BLOOD CELL COUNT (BEAKER) (test rkay=198) 10.5 K/ L 3.5-10.5 RED BLOOD CELL COUNT (BEAKER) (test kjfz=724) 4.20 M/ L 4.63-6.08 HEMOGLOBIN (BEAKER) (test txvi=343) 13.6 GM/DL 13.7-17.5 HEMATOCRIT (BEAKER) (test jvdw=070) 40.5 % 40.1-51.0 MEAN CORPUSCULAR VOLUME (BEAKER) (test arpr=281) 96.4 fL 79.0-92.2 MEAN CORPUSCULAR HEMOGLOBIN (BEAKER) (test 32.4 pg 25.7-32.2 deqw=502) MEAN CORPUSCULAR HEMOGLOBIN CONC (BEAKER) (test 33.6 GM/DL 32.3-36.5 cvau=464) RED CELL DISTRIBUTION WIDTH (BEAKER) (test 15.1 % 11.6-14.4 vrye=778) PLATELET COUNT (BEAKER) (test rtwu=338) 142 K/CU MM 150-450 MEAN PLATELET VOLUME (BEAKER) (test wgas=727) 10.3 fL 9.4-12.4 NUCLEATED RED BLOOD CELLS (BEAKER) (test 0 /100 WBC 0-0 docp=629) (CELLAVISION MANUAL DIFF)2018-06-16 11:27:00 Test Item Value Reference Range Comments NEUTROPHILS - REL (CELLAVISION)(BEAKER) (test 51 % ndks=2012) LYMPHOCYTES - REL (CELLAVISION)(BEAKER) (test 1 % dqly=2455) MONOCYTES - REL (CELLAVISION)(BEAKER) (test 2 % ljzb=3256) MYELOCYTES - REL (CELLAVISION)(BEAKER) (test 1 % 0-0 dwsw=8882) PROMYELOCYTES - REL (CELLAVSION)(BEAKER) (test 1 % 0-0 ontg=2300) BANDS - REL (CELLAVISION)(BEAKER) (test 44 % 0-10 csjz=2652) NEUTROPHILS - ABS (CELLAVISION)(BEAKER) (test 5.36 K/ul 1.78-5.38 hncv=9804) LYMPHOCYTES - ABS (CELLAVISION)(BEAKER) (test 0.11 K/ul 1.32-3.57 dqqc=7961) MONOCYTES - ABS (CELLAVISION)(BEAKER) (test 0.21 K/uL 0.30-0.82 mhin=6255) MYELOCYTES-ABS (CELLAVISION)(BEAKER) (test 0.11 K/uL 0.00-0.00 qawg=2044) PROMYELOCYTES - ABS (CELLAVISION)(BEAKER) (test 0.11 K/uL 0.00-0.00 tgow=7767) BANDS - ABS (CELLAVISION)(BEAKER) (test 4.62 K/uL 0.00-0.80 qqnr=0258) TOTAL COUNTED (BEAKER) (test ezcq=8534) 100 MANUAL NRBC PER 100 CELLS (BEAKER) (test 1 /100 WBC 0-0 emtg=8368) SMUDGE CELLS (BEAKER) (test oufa=4491) Present GIANT PLATELETS (BEAKER) (test pzri=886) Present POLYCHROMATOPHILLIC RBCS(BEAKER) (test rcbv=191) 1+ few ANISOCYTOSIS (BEAKER) (test nkfr=014) 1+ few MICROCYTES (BEAKER) (test pigx=215) 1+ few POIKILOCYTES (BEAKER) (test wnuo=450) 1+ few ARTIFACT (CELLAVISION)(BEAKER) (test gwkt=5957) Present PLATELET CONCENTRATION (CELLAVISION)(BEAKER) Adequate (test myrd=4771) Received comment: User comments: Slide comments:CT, CHEST WITH IV CONTRAST- PE TEST [id number] 09:53:00Worsening hypoxia s/o diagnosis and excision of laryngeal cancerFINAL REPORT CT Chest with contrast (PE protocol) [...] lesion. Impression: 1. No evidence of pulmonary embolus.2. Interval development of airspace disease within the bilateral lower lobes as well as the dependent portions of the right middle lobe and left upper lobe. The findings are suspicious for aspiration pneumonitis or multifocal pneumonia. Signed: Burt Colunga MDReport Verified Date/Time: 06/16/2018 09:53:01 Reading Location: [facility] Diagnostic Imaging Reading Room - [place] [address] RAD, CHEST, 1 VIEW, NON [id number] 07:36:00Reason for exam:->recent pneumothorax, new trachShould this be performed at the bedside?->YesFINAL REPORT AP view of the chest dated 06/16/2018 COMPARISON: 06/15/2018 CLINICAL INFORMATION: recent pneumothorax, new trach Comment: Heart is normal in size. Pulmonary vasculature is unremarkable. Parenchymal disease is seen in both lower loops of the suggestive of subsegmental atelectasis or pneumonia. The rest of the lungs are clear. No pleural effusion or pneumothorax is present. Tracheostomy tube remains in place. Impression: Nonspecific pulmonary parenchyma disease inboth lower lobes suspicious for pneumonia. Signed: Lucy Morales MDReport Verified Date/Time: 06/16/2018 07:36:27 Reading Location: [facility] Radiology Reading Room 07: 36 AMBASIC METABOLIC [id number] 05:45:00 Test Item Value Reference Range Comments SODIUM (BEAKER) (test 132 meq/L 136-145 vdvl=586) POTASSIUM (BEAKER) (test 3.9 meq/L 3.5-5.1 shad=927) CHLORIDE (BEAKER) (test 92 meq/L 98-107 wprz=392) CO2 (BEAKER) (test 27 meq/L 22-29 mfot=697) BLOOD UREA NITROGEN 13 mg/dL 7-21 (BEAKER) (test wtih=625) CREATININE (BEAKER) (test 0.83 mg/dL 0.57-1.25 zgey=447) GLUCOSE RANDOM (BEAKER) 129 mg/dL 70-105 (test vjmr=666) CALCIUM (BEAKER) (test 9.5 mg/dL 8.4-10.2 jqgf=634) EGFR (BEAKER) (test 99 mL/min/1.73 sq m ESTIMATED GFR IS NOT bamc=8698) ACCURATE CREATININE CLEARANCE IN PREDICTING GLOMERULAR FILTRATION RATE. ESTIMATED GFR IS NOT APPLICABLE FOR DIALYSIS PATIENTS. [id number] 18:12:00 Test Item Value Reference Range Comments MAGNESIUM (BEAKER) (test 2.0 mg/dL 1.6-2.6 Specimen slightly hemolyzed xtzk=812) BASIC METABOLIC [id number] 18:12:00 Test Item Value Reference Range Comments SODIUM (BEAKER) (test 130 meq/L 136-145 xhdi=524) POTASSIUM (BEAKER) (test 3.7 meq/L 3.5-5.1 Specimen slightly quqp=461) hemolyzed CHLORIDE (BEAKER) (test 91 meq/L 98-107 rgdb=228) CO2 (BEAKER) (test 27 meq/L 22-29 dsyh=331) BLOOD UREA NITROGEN 14 mg/dL 7-21 (BEAKER) (test kdjm=596) CREATININE (BEAKER) (test 0.78 mg/dL 0.57-1.25 Specimen slightly gzbl=281) hemolyzed GLUCOSE RANDOM (BEAKER) 85 mg/dL 70-105 (test mmzk=264) CALCIUM (BEAKER) (test 8.9 mg/dL 8.4-10.2 gwga=546) EGFR (BEAKER) (test 107 mL/min/1.73 sq m ESTIMATED GFR IS NOT viwt=7028) ACCURATE CREATININE CLEARANCE IN PREDICTING GLOMERULAR FILTRATION RATE. ESTIMATED GFR IS NOT APPLICABLE FOR DIALYSIS PATIENTS. RAD, CHEST, 1 VIEW, NON [id number] 13:18:00Reason for exam:->recent pneumothorax, new trachShould this be performed at the bedside?->YesFINAL REPORT RAD, CHEST, 1 VIEW, NON DEPT INDICATION: recent pneumothorax, new trach COMPARISON: Six hours prior FINDINGS: Portable frontal view of the chest. IMPRESSION: Support Lines: Stable tracheostomy tube. Lungs and pleura: Stable consolidation in the right base. Subsegmental atelectasis on the left with its effusion. No pneumothorax.Heart and mediastinum : Stable contours. Additional findings: None. Signed: JR Humberto, Jimmie MCGARRYepfarzaneh Verified Date/Time: 06/15/2018 13:18:45 Reading Location: [address] Neuro Reading Room BLOOD GAS, [id number] 11:41:00 Test Item Value Reference Range Comments PH ARTERIAL (BEAKER) (test aedd=183) 7.50 7.35-7.45 PCO2 ARTERIAL (BEAKER) (test lqwn=494) 40 mmHg 35-45 PO2 ARTERIAL (BEAKER) (test gthc=349) 335 mmHg 80-90 O2 SATURATION ARTERIAL (BEAKER) (test ytwf=131) 99.8 % 96.0-97.0 HCO3 ARTERIAL (BEAKER) (test xmll=088) 29 mmol/L 21-29 BASE EXCESS ARTERIAL (BEAKER) (test xklb=523) 6.5 mmol/L -2.0-3.0 PATIENT TEMPERATURE (BEAKER) (test kwue=5472) 39.3 C FIO2 (BEAKER) (test fipd=2694) 100.0 % Obtain one hour post initaition of vent support \\R\\[id number] [id number] 09: 49:00 Test Item Value Reference Range Comments TROPONIN I (BEAKER) (test uqws=047) < ng/mL 0.00-0.03 Troponin I (TnI) levels must be interpreted in the context of the presenting symptoms and the clinical findings. Elevated TnI levels indicate myocardial damage, but are not specific for ischemic heart disease. Elevated TnI levels are seen in patients with other cardiac conditions (including myocarditis and congestive heart failure), and slight TnI elevations occur in patients with other conditions, including sepsis, renal failure, acidosis, acute neurological disease, and persistent tachyarrhythmia.Add 0nB-TYPE NATRIURETIC FACTOR (BNP) 2018-06-15 09:35:00 Test Item Value Reference Range Comments B-TYPE NATRIURETIC PEPTIDE (BEAKER) (test sgyi=732) 66 pg/mL 0-100 [id number] 09:29:00 Test Item Value Reference Range Comments D-DIMER QUANTITATIVE (BEAKER) (test tgjv=729) 1.59 MG/L FEU <0.50 Intended Use: The D-Dimer Assay can be used to aid in the diagnosis of Deep Vein Thrombosis (DVT) and Pulmonary Embolism Disease (PED).In patients with low pre-test probability, various studies concerning STA Liatest D-dimer test have reported that with a cutoff value of 0.50 MG/L FEU, the Negative Predictive Value (NPV) regarding the exclusion of thrombosis is within 95-100% range.[id number] 09:12:00 Test Item Value Reference Range Comments FIBRINOGEN LEVEL (BEAKER) (test hlqs=674) 621 mg/dl 225-434 [id number] 09:10:00 Test Item Value Reference Range Comments PHOSPHORUS (BEAKER) (test waml=842) 2.8 mg/dL 2.3-4.7 [id number] 09:10:00 Test Item Value Reference Range Comments MAGNESIUM (BEAKER) (test qotl=228) 1.9 mg/dL 1.6-2.6 COMPREHENSIVE METABOLIC [id number] 09:10:00 Test Item Value Reference Range Comments TOTAL PROTEIN (BEAKER) 5.9 gm/dL 6.0-8.3 (test yhob=206) ALBUMIN (BEAKER) (test 3.3 g/dL 3.5-5.0 ehed=0858) ALKALINE PHOSPHATASE 73 U/L 40-150 (BEAKER) (test mdph=579) BILIRUBIN TOTAL (BEAKER) 1.3 mg/dL 0.2-1.2 (test ylac=989) SODIUM (BEAKER) (test 127 meq/L 136-145 oqpo=441) POTASSIUM (BEAKER) (test 3.8 meq/L 3.5-5.1 lipu=151) CHLORIDE (BEAKER) (test 89 meq/L 98-107 hnbk=960) CO2 (BEAKER) (test 28 meq/L 22-29 dzqc=537) BLOOD UREA NITROGEN 14 mg/dL 7-21 (BEAKER) (test pyvd=042) CREATININE (BEAKER) (test 0.78 mg/dL 0.57-1.25 rdcl=759) GLUCOSE RANDOM (BEAKER) 87 mg/dL 70-105 (test ootb=188) CALCIUM (BEAKER) (test 8.8 mg/dL 8.4-10.2 frlp=699) AST (SGOT) (BEAKER) (test 23 U/L 5-34 udjq=021) ALT (SGPT) (BEAKER) (test 26 U/L 6-55 eabn=098) EGFR (BEAKER) (test 107 mL/min/1.73 sq ESTIMATED GFR IS NOT sjkk=2904) m ACCURATE CREATININE CLEARANCE IN PREDICTING GLOMERULAR FILTRATION RATE. ESTIMATED GFR IS NOT APPLICABLE FOR DIALYSIS PATIENTS. [id number] 09:01:00 Test Item Value Reference Range Comments PROTIME (BEAKER) (test aaxq=575) 15.2 seconds 11.7-14.7 INR (BEAKER) (test cjmo=045) 1.2 <=5.9 PARTIAL THROMBOPLASTIN TIME (BEAKER) (test 31.6 seconds 22.5-36.0 tfqb=810) RECOMMENDED COUMADIN/WARFARIN INR THERAPY RANGESSTANDARD DOSE: 2.0 - 3.0 Includes: PROPHYLAXIS forvenous thrombosis, systemic embolization; TREATMENT for venous thrombosis and/or pulmonary embolus.HIGH RISK: Target INR is 2.5-3.5 for patients with mechanical heart valves.LACTIC ACID, [id number] 08:51: 00 Test Item Value Reference Range Comments LACTATE BLOOD ARTERIAL (2) 0.8 mmol/L 0.5-2.2 Specimen slightly hemolyzed (BEAKER) (test mmlh=6882) BLOOD GAS, [id number] 08:40:00 Test Item Value Reference Range Comments PH ARTERIAL (BEAKER) (test jcaj=070) 7.51 7.35-7.45 PCO2 ARTERIAL (BEAKER) (test sgwj=079) 40 mmHg 35-45 PO2 ARTERIAL (BEAKER) (test cuak=510) 58 mmHg 80-90 O2 SATURATION ARTERIAL (BEAKER) (test jxfp=624) 90.0 % 96.0-97.0 HCO3 ARTERIAL (BEAKER) (test gwqq=877) 31 mmol/L 21-29 BASE EXCESS ARTERIAL (BEAKER) (test qncw=635) 8.3 mmol/L -2.0-3.0 PATIENT TEMPERATURE (BEAKER) (test gzvd=1980) 39.1 C FIO2 (BEAKER) (test bmia=8877) 80.0 % [id number] 08:00:00 Test Item Value Reference Range Comments MAGNESIUM (BEAKER) (test vjoh=314) 1.8 mg/dL 1.6-2.6 Add onCBC W/PLT COUNT & AUTO [id number] 06:45:00 Test Item Value Reference Range Comments WHITE BLOOD CELL COUNT (BEAKER) (test oezz=965) 10.2 K/ L 3.5-10.5 RED BLOOD CELL COUNT (BEAKER) (test tolr=127) 4.12 M/ L 4.63-6.08 HEMOGLOBIN (BEAKER) (test ihft=460) 13.2 GM/DL 13.7-17.5 HEMATOCRIT (BEAKER) (test quap=732) 40.8 % 40.1-51.0 MEAN CORPUSCULAR VOLUME (BEAKER) (test zmsx=375) 99.0 fL 79.0-92.2 MEAN CORPUSCULAR HEMOGLOBIN (BEAKER) (test 32.0 pg 25.7-32.2 qunl=179) MEAN CORPUSCULAR HEMOGLOBIN CONC (BEAKER) (test 32.4 GM/DL 32.3-36.5 ypih=094) RED CELL DISTRIBUTION WIDTH (BEAKER) (test 15.2 % 11.6-14.4 tdbe=814) PLATELET COUNT (BEAKER) (test wihl=784) 146 K/CU MM 150-450 MEAN PLATELET VOLUME (BEAKER) (test skez=613) 9.9 fL 9.4-12.4 NUCLEATED RED BLOOD CELLS (BEAKER) (test 0 /100 WBC 0-0 vmsn=752) NEUTROPHILS RELATIVE PERCENT (BEAKER) (test 92 % eeap=804) LYMPHOCYTES RELATIVE PERCENT (BEAKER) (test 3 % zmti=671) MONOCYTES RELATIVE PERCENT (BEAKER) (test 2 % gfhx=755) EOSINOPHILS RELATIVE PERCENT (BEAKER) (test 0 % kyue=818) BASOPHILS RELATIVE PERCENT (BEAKER) (test 0 % ujxs=218) NEUTROPHILS ABSOLUTE COUNT (BEAKER) (test 9.38 K/ L 1.78-5.38 tkrv=983) LYMPHOCYTES ABSOLUTE COUNT (BEAKER) (test 0.30 K/ L 1.32-3.57 bchs=540) MONOCYTES ABSOLUTE COUNT (BEAKER) (test 0.23 K/ L 0.30-0.82 jimj=271) EOSINOPHILS ABSOLUTE COUNT (BEAKER) (test 0.00 K/ L 0.04-0.54 xdhg=993) BASOPHILS ABSOLUTE COUNT (BEAKER) (test 0.03 K/ L 0.01-0.08 jgww=582) IMMATURE GRANULOCYTES-RELATIVE PERCENT (BEAKER) 3 % 0-1 (test rpuv=7710) BASIC METABOLIC [id number] 06:35:00 Test Item Value Reference Range Comments SODIUM (BEAKER) (test 127 meq/L 136-145 iyvo=153) POTASSIUM (BEAKER) (test 3.8 meq/L 3.5-5.1 swgl=758) CHLORIDE (BEAKER) (test 91 meq/L 98-107 sflz=396) CO2 (BEAKER) (test 27 meq/L 22-29 slgc=873) BLOOD UREA NITROGEN 12 mg/dL 7-21 (BEAKER) (test fbqw=036) CREATININE (BEAKER) (test 0.75 mg/dL 0.57-1.25 pyky=912) GLUCOSE RANDOM (BEAKER) 88 mg/dL 70-105 (test ijwi=410) CALCIUM (BEAKER) (test 8.6 mg/dL 8.4-10.2 thyh=543) EGFR (BEAKER) (test 112 mL/min/1.73 sq m ESTIMATED GFR IS NOT hjck=3471) ACCURATE CREATININE CLEARANCE IN PREDICTING GLOMERULAR FILTRATION RATE. ESTIMATED GFR IS NOT APPLICABLE FOR DIALYSIS PATIENTS. RAD, CHEST, 1 VIEW, NON [id number] 05:10:00Reason for exam:->sob, tachypneaShould this be performed at the bedside?->YesFINAL REPORT RAD, CHEST, 1 VIEW, NON DEPT INDICATION: sob, tachypnea COMPARISON : Prior day's exam FINDINGS: Portable frontal view of the chest. IMPRESSION: Support Lines: Stable. Lungs and pleura: Persistent patchy bibasilar heterogeneous airspace opacities, could reflect atelectasis versus pneumonia in the proper clinical setting. Possible small left pleural effusion. No pneumothorax.Heart and mediastinum: Stable contours. Additional findings: None. Signed: Sridevi Carrillo Verified Date/Time: 06/15/2018 05:10:33 Reading Location: [address] Reading Room POCT-LACTIC ACID, [id number] 04:30:00 Test Item Value Reference Range Comments POC-LACTIC ACID, VENOUS 1.1 mmol/L 0.9-1.[address] [facility] [address] [facility] (BEAKER) (test tfkp=0474) [facility] [address] URINALYSIS W/ REFLEX URINE [id number] 20:03:00 Test Item Value Reference Range Comments COLOR (BEAKER) (test vmsk=296) Light Yellow CLARITY (BEAKER) (test lloi=040) Hazy SPECIFIC GRAVITY UA (BEAKER) (test vfoy=720) 1.014 1.001-1.035 PH UA (BEAKER) (test pmxo=541) 7.5 5.0-8.0 PROTEIN UA (BEAKER) (test acgy=281) Negative Negative GLUCOSE UA (BEAKER) (test pbhu=868) Negative Negative KETONES UA (BEAKER) (test geuw=122) Negative Negative BILIRUBIN UA (BEAKER) (test rdyh=465) Negative Negative BLOOD UA (BEAKER) (test xrof=901) Negative Negative NITRITE UA (BEAKER) (test amtp=618) Negative Negative LEUKOCYTE ESTERASE UA (BEAKER) (test adrd=573) Negative Negative UROBILINOGEN UA (BEAKER) (test raet=030) 0.2 mg/dL 0.2-1.0 RBC UA (BEAKER) (test vexb=727) 0 /HPF WBC UA (BEAKER) (test ngqo=461) 0 /HPF BACTERIA (BEAKER) (test ydyq=089) Few MUCUS (BEAKER) (test oqdh=2171) Rare HYALINE CASTS (BEAKER) (test prmq=519) 3 /LPF SOURCE(BEAKER) (test dxcu=1999) RAD, CHEST, 1 VIEW, NON [id number] 19:10:00Reason for exam:->SUSUPECTED INFECTIONShould this be performed at the bedside?->YesFINAL REPORT CLINICAL INDICATION: Suspected infection Comparison: 06/14/2018 The cardiomediastinal contours are stable. The lung volumes remain low. Bibasilar opacities, right greater than left, are similar to previous and may reflect atelectasis. Pneumonitis should be excluded clinically. There is no pneumothorax or large pleural effusion. A tracheostomy tube is stable in position. Signed: Jakob Garcia MDReport Verified Date/Time: 06/14/2018 19:10: 10 Reading Location: [address] Reading Room CBC W/PLT COUNT & AUTO [id number] 04:36:00 Test Item Value Reference Range Comments WHITE BLOOD CELL COUNT (BEAKER) (test ebnv=741) 11.4 K/ L 3.5-10.5 RED BLOOD CELL COUNT (BEAKER) (test cauj=278) 4.37 M/ L 4.63-6.08 HEMOGLOBIN (BEAKER) (test vjmo=034) 14.1 GM/DL 13.7-17.5 HEMATOCRIT (BEAKER) (test tslm=431) 44.0 % 40.1-51.0 MEAN CORPUSCULAR VOLUME (BEAKER) (test wkyr=926) 100.7 fL 79.0-92.2 MEAN CORPUSCULAR HEMOGLOBIN (BEAKER) (test 32.3 pg 25.7-32.2 odgz=220) MEAN CORPUSCULAR HEMOGLOBIN CONC (BEAKER) (test 32.0 GM/DL 32.3-36.5 twgy=774) RED CELL DISTRIBUTION WIDTH (BEAKER) (test 14.4 % 11.6-14.4 cuvi=291) PLATELET COUNT (BEAKER) (test cgxv=370) 188 K/CU MM 150-450 MEAN PLATELET VOLUME (BEAKER) (test ymls=180) 10.7 fL 9.4-12.4 NUCLEATED RED BLOOD CELLS (BEAKER) (test 0 /100 WBC 0-0 wmty=210) NEUTROPHILS RELATIVE PERCENT (BEAKER) (test 95 % dfbz=409) LYMPHOCYTES RELATIVE PERCENT (BEAKER) (test 1 % gavf=987) MONOCYTES RELATIVE PERCENT (BEAKER) (test 2 % tche=604) EOSINOPHILS RELATIVE PERCENT (BEAKER) (test 0 % onbr=004) BASOPHILS RELATIVE PERCENT (BEAKER) (test 0 % nldp=009) NEUTROPHILS ABSOLUTE COUNT (BEAKER) (test 10.81 K/ L 1.78-5.38 uuxv=707) LYMPHOCYTES ABSOLUTE COUNT (BEAKER) (test 0.16 K/ L 1.32-3.57 ursy=798) MONOCYTES ABSOLUTE COUNT (BEAKER) (test 0.26 K/ L 0.30-0.82 tvqi=603) EOSINOPHILS ABSOLUTE COUNT (BEAKER) (test 0.00 K/ L 0.04-0.54 fqru=850) BASOPHILS ABSOLUTE COUNT (BEAKER) (test 0.03 K/ L 0.01-0.08 zukn=470) IMMATURE GRANULOCYTES-RELATIVE PERCENT (BEAKER) 2 % 0-1 (test zubv=6973) RAD, CHEST, 1 VIEW, NON [id number] 04:13:00Reason for exam:->recent pneumothorax, new trachShould this be performed at the bedside?->YesFINAL REPORT RAD, CHEST, 1 VIEW, NON DEPT INDICATION: recent pneumothorax, new trach COMPARISON: Prior day's exam FINDINGS: Portable frontal view of the chest. IMPRESSION: Support Lines: Stable. Lungs and pleura: Interval increased consolidative airspace opacity of the right base. No large pleural effusion. No pneumothorax.Heart and mediastinum: Stable contours. Additional findings: None. Signed: Sridevi Carrilloeport Verified Date/ Time: 06/14/2018 04:13:50 Reading Location: [address] Transitional Reading Room BLOOD GAS, [id number] 01:01:00 Test Item Value Reference Range Comments PH ARTERIAL (BEAKER) (test evqw=928) 7.45 7.35-7.45 PCO2 ARTERIAL (BEAKER) (test huou=001) 41 mmHg 35-45 PO2 ARTERIAL (BEAKER) (test wgfz=197) 109 mmHg 80-90 O2 SATURATION ARTERIAL (BEAKER) (test etxb=995) 98.2 % 96.0-97.0 HCO3 ARTERIAL (BEAKER) (test srny=283) 28 mmol/L 21-29 BASE EXCESS ARTERIAL (BEAKER) (test smrx=497) 3.4 mmol/L -2.0-3.0 PATIENT TEMPERATURE (BEAKER) (test ngvx=3582) 36.7 C FIO2 (BEAKER) (test basg=4605) 40.0 % POCT-GLUCOSE [id number] 05:32:00 Test Item Value Reference Range Comments POC-GLUCOSE METER (BEAKER) 92 mg/dL 70-110 TESTED AT [address] (test gxcy=2819) [facility] [address] RAD, CHEST, 1 VIEW, NON [id number] 05:03:00Reason for exam:->evaluate for pneumo r/t CTShould this be performed at the bedside?->YesFINAL REPORT RAD, CHEST, 1 VIEW, NON DEPT INDICATION: evaluate for pneumo r/tCT COMPARISON: Prior day's exam FINDINGS: Portable frontal view of the chest. IMPRESSION: SupportLines: Stable. Lungs and pleura: Increased airspace opacity in the right base may be related atelectasis however superimposed infection cannot be excluded in the proper clinical setting. No large pleural effusion. No pneumothorax.Heart and mediastinum: Stable contours. Additional findings: None. Signed: Sridevi Carrillo MDReport Verified Date/ Time: 06/13/2018 05:03:31 Reading Location: [address] Transitional Reading Room [id number] 04:22:00 Test Item Value Reference Range Comments PARTIAL THROMBOPLASTIN TIME (BEAKER) (test 27.4 seconds 22.5-36.0 wocy=219) PROTHROMBIN [id number] 04:21:00 Test Item Value Reference Range Comments PROTIME (BEAKER) (test irkw=202) 13.8 seconds 11.7-14.7 INR (BEAKER) (test oyfd=551) 1.1 <=5.9 RECOMMENDED COUMADIN/WARFARIN INR THERAPY RANGESSTANDARD DOSE: 2.0 - 3.0 Includes: PROPHYLAXIS forvenous thrombosis, systemic embolization; TREATMENT for venous thrombosis and/or pulmonary embolus.HIGH RISK: Target INR is 2.5-3.5 for patients with mechanical heart valves.[id number] 04:20:00 Test Item Value Reference Range Comments PHOSPHORUS (BEAKER) (test berc=275) 3.1 mg/dL 2.3-4.7 [id number] 04:20:00 Test Item Value Reference Range Comments MAGNESIUM (BEAKER) (test zsfu=553) 2.0 mg/dL 1.6-2.6 BASIC METABOLIC [id number] 04:20:00 Test Item Value Reference Range Comments SODIUM (BEAKER) (test 140 meq/L 136-145 dhet=227) POTASSIUM (BEAKER) (test 3.7 meq/L 3.5-5.1 rraq=770) CHLORIDE (BEAKER) (test 101 meq/L 98-107 eqhm=124) CO2 (BEAKER) (test 30 meq/L 22-29 kugx=088) BLOOD UREA NITROGEN 13 mg/dL 7-21 (BEAKER) (test frro=031) CREATININE (BEAKER) (test 0.74 mg/dL 0.57-1.25 ribf=307) GLUCOSE RANDOM (BEAKER) 97 mg/dL 70-105 (test knnv=742) CALCIUM (BEAKER) (test 9.2 mg/dL 8.4-10.2 skcd=656) EGFR (BEAKER) (test 113 mL/min/1.73 sq m ESTIMATED GFR IS NOT pbnq=8226) ACCURATE CREATININE CLEARANCE IN PREDICTING GLOMERULAR FILTRATION RATE. ESTIMATED GFR IS NOT APPLICABLE FOR DIALYSIS PATIENTS. CBC W/PLT COUNT & AUTO [id number] 04:14:00 Test Item Value Reference Range Comments WHITE BLOOD CELL COUNT (BEAKER) (test mdyl=495) 11.6 K/ L 3.5-10.5 RED BLOOD CELL COUNT (BEAKER) (test heky=149) 4.30 M/ L 4.63-6.08 HEMOGLOBIN (BEAKER) (test fckm=224) 13.9 GM/DL 13.7-17.5 HEMATOCRIT (BEAKER) (test owve=477) 43.3 % 40.1-51.0 MEAN CORPUSCULAR VOLUME (BEAKER) (test hyoh=947) 100.7 fL 79.0-92.2 MEAN CORPUSCULAR HEMOGLOBIN (BEAKER) (test 32.3 pg 25.7-32.2 pckh=021) MEAN CORPUSCULAR HEMOGLOBIN CONC (BEAKER) (test 32.1 GM/DL 32.3-36.5 gznx=218) RED CELL DISTRIBUTION WIDTH (BEAKER) (test 14.1 % 11.6-14.4 pluy=022) PLATELET COUNT (BEAKER) (test rlyd=026) 182 K/CU MM 150-450 MEAN PLATELET VOLUME (BEAKER) (test tczw=394) 10.7 fL 9.4-12.4 NUCLEATED RED BLOOD CELLS (BEAKER) (test 0 /100 WBC 0-0 oiwp=795) NEUTROPHILS RELATIVE PERCENT (BEAKER) (test 89 % shcs=949) LYMPHOCYTES RELATIVE PERCENT (BEAKER) (test 3 % fssi=017) MONOCYTES RELATIVE PERCENT (BEAKER) (test 6 % mniv=265) EOSINOPHILS RELATIVE PERCENT (BEAKER) (test 0 % ytze=902) BASOPHILS RELATIVE PERCENT (BEAKER) (test 0 % osti=379) NEUTROPHILS ABSOLUTE COUNT (BEAKER) (test 10.26 K/ L 1.78-5.38 zhti=292) LYMPHOCYTES ABSOLUTE COUNT (BEAKER) (test 0.39 K/ L 1.32-3.57 jtlj=059) MONOCYTES ABSOLUTE COUNT (BEAKER) (test 0.74 K/ L 0.30-0.82 fqbp=191) EOSINOPHILS ABSOLUTE COUNT (BEAKER) (test 0.02 K/ L 0.04-0.54 hlww=881) BASOPHILS ABSOLUTE COUNT (BEAKER) (test 0.03 K/ L 0.01-0.08 wyst=864) IMMATURE GRANULOCYTES-RELATIVE PERCENT (BEAKER) 1 % 0-1 (test jzxs=6639) POCT-GLUCOSE [id number] 00:14:00 Test Item Value Reference Range Comments POC-GLUCOSE METER (BEAKER) 126 mg/dL 70-110 TESTED AT [address] (test yxke=7413) [facility] [address] RAD, CHEST, 1 VIEW, NON [id number] 12:29:00Reason for exam:->s/p[ L thoracocentesisFINAL REPORT CLINICAL HISTORY: s/p[ L thoracocentesis TECHNIQUE: 1 view of the chest. COMPARISON: 06/12/2018 IMPRESSION: A tracheostomy tube is again seen. There is no pneumothorax. Bibasilar atelectasis is again noted. There is no significant appearing pleural fluid. The cardiomediastinal silhouette is magnified by technique. Signed: Jacqueline Hilliard MDReport Verified Date/Time:06/12/2018 12:29:27 Reading Location: [address] Consult Reading Room POCT-GLUCOSE [id number] 12:10:00 Test Item Value Reference Range Comments POC-GLUCOSE METER (BEAKER) 194 mg/dL 70-110 TESTED AT [address] (test wrci=8014) [place] [address] CT, CHEST, WITH [id number] 10:26:00Premedicated for contrast allergy. With general anesthesia please.FINAL REPORT INDICATION: Cancer surveillance. Report of laryngeal mass. COMPARISON:Chest radiograph June 12, 2018 TECHNIQUE: Chest CT exam WITH intravenous contrast. 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 Signed: Randolph Manort Verified Date/Time: 06/12/2018 10:26:26 Reading Location: [facility] Diagnostic Imaging Reading Room - [place] [address], SOFT TISSUE NECK, [id number] 09:53: 00Premedicated for contrast allergy. With gneral anesthesia please.FINAL REPORT CT, SOFT TISSUE NECK, CONTRAST INDICATION: Cancer Surveillance COMPARISON: None currently available. TECHNIQUE: Noncontrast CT images of the cervical soft tissues. Multiplanar, orthogonal reformatted images were generated. DOSE REDUCTION: Dose modulation, iterativereconstruction, and/ or weight-based adjustment of the mA/kV was utilized [...] deviation of the arytenoid cartilages. Vallecular volumes areasymmetric, slightly larger on the left. Air is diffuse edema in the supraglottic larynx without visible epiglottic enlargement. No pathologic adenopathy is present. Vascular enhancement is within normal limits. The thyroid gland is unremarkable. There is no acute osseous abnormality. Degenerative paranasal sinus thickening is noted. A right mastoid effusion is present. Included portions of the brainbase are unremarkable. IMPRESSION: Evaluation of the laryngeal surface is somewhat limited by edema and the presence of tracheostomy. Tracheostomy position is appropriate. No adenopathy. Correlation preoperative imaging is recommended when /if such imaging is available. Signed: JR Paul Robert MDRnicolasort Verified Date/Time: 06/12/2018 09:53:06 Reading Location: [facility] B1 C013V Neuro Reading Room [id number] 06:00:00 Test Item Value Reference Range Comments PHOSPHORUS (BEAKER) (test uder=913) 2.9 mg/dL 2.3-4.7 [id number] 06:00:00 Test Item Value Reference Range Comments MAGNESIUM (BEAKER) (test wwcs=790) 2.1 mg/dL 1.6-2.6 BASIC METABOLIC [id number] 06:00:00 Test Item Value Reference Range Comments SODIUM (BEAKER) (test 139 meq/L 136-145 vilt=576) POTASSIUM (BEAKER) (test 3.9 meq/L 3.5-5.1 tcvq=942) CHLORIDE (BEAKER) (test 104 meq/L 98-107 zwaf=739) CO2 (BEAKER) (test 26 meq/L 22-29 fkwy=568) BLOOD UREA NITROGEN 13 mg/dL 7-21 (BEAKER) (test aehv=623) CREATININE (BEAKER) (test 0.65 mg/dL 0.57-1.25 iyej=367) GLUCOSE RANDOM (BEAKER) 109 mg/dL 70-105 (test yomd=424) CALCIUM (BEAKER) (test 9.5 mg/dL 8.4-10.2 kszw=364) EGFR (BEAKER) (test 132 mL/min/1.73 sq m ESTIMATED GFR IS NOT fwcg=0413) ACCURATE CREATININE CLEARANCE IN PREDICTING GLOMERULAR FILTRATION RATE. ESTIMATED GFR IS NOT APPLICABLE FOR DIALYSIS PATIENTS. POCT-GLUCOSE [id number] 05:44:00 Test Item Value Reference Range Comments POC-GLUCOSE METER (BEAKER) 157 mg/dL 70-[address] [facility] [address] [facility] (test wzuz=9380) [facility] [address] CBC W/PLT COUNT & AUTO [id number] 04:29:00 Test Item Value Reference Range Comments WHITE BLOOD CELL COUNT (BEAKER) (test cbyr=617) 17.3 K/ L 3.5-10.5 RED BLOOD CELL COUNT (BEAKER) (test xqtn=770) 4.42 M/ L 4.63-6.08 HEMOGLOBIN (BEAKER) (test uqvn=278) 14.4 GM/DL 13.7-17.5 HEMATOCRIT (BEAKER) (test xzev=244) 43.7 % 40.1-51.0 MEAN CORPUSCULAR VOLUME (BEAKER) (test tfgd=481) 98.9 fL 79.0-92.2 MEAN CORPUSCULAR HEMOGLOBIN (BEAKER) (test 32.6 pg 25.7-32.2 tuvd=971) MEAN CORPUSCULAR HEMOGLOBIN CONC (BEAKER) (test 33.0 GM/DL 32.3-36.5 uyav=232) RED CELL DISTRIBUTION WIDTH (BEAKER) (test 14.2 % 11.6-14.4 cier=979) PLATELET COUNT (BEAKER) (test vfrr=887) 180 K/CU MM 150-450 MEAN PLATELET VOLUME (BEAKER) (test lpxy=918) 10.9 fL 9.4-12.4 NUCLEATED RED BLOOD CELLS (BEAKER) (test 0 /100 WBC 0-0 vbsd=212) NEUTROPHILS RELATIVE PERCENT (BEAKER) (test 94 % hpyv=395) LYMPHOCYTES RELATIVE PERCENT (BEAKER) (test 2 % phrr=465) MONOCYTES RELATIVE PERCENT (BEAKER) (test 3 % jwaa=799) EOSINOPHILS RELATIVE PERCENT (BEAKER) (test 0 % kieq=226) BASOPHILS RELATIVE PERCENT (BEAKER) (test 0 % qydn=080) NEUTROPHILS ABSOLUTE COUNT (BEAKER) (test 16.28 K/ L 1.78-5.38 vcep=064) LYMPHOCYTES ABSOLUTE COUNT (BEAKER) (test 0.28 K/ L 1.32-3.57 palt=285) MONOCYTES ABSOLUTE COUNT (BEAKER) (test 0.55 K/ L 0.30-0.82 xkbl=965) EOSINOPHILS ABSOLUTE COUNT (BEAKER) (test 0.00 K/ L 0.04-0.54 mdsm=148) BASOPHILS ABSOLUTE COUNT (BEAKER) (test 0.02 K/ L 0.01-0.08 dbau=289) IMMATURE GRANULOCYTES-RELATIVE PERCENT (BEAKER) 1 % 0-1 (test cuvq=5479) RAD, CHEST, 1 VIEW, NON [id number] 04:26:00Reason for exam:->evaluate for pneumo r/t CTShould this be performed at the bedside?->YesFINAL REPORT CLINICAL INDICATION: Support lines. Comparison: 2018 The cardiomediastinal contours are stable. The lung volumes remain low. The lateral pulmonary opacities are similar to previous within variation of acquisition technique. There is no pneumothorax. A tracheostomy tube is stable. Signed: Jakob Garcia MDReport Verified Date/Time: 06/12/2018 04:26:44 Reading Location: [address] Reading Room Electronically signed by: JAKOB GARCIA M.D. on06/12/2018 04:26 [id number] 04:02:00 Test Item Value Reference Range Comments PARTIAL THROMBOPLASTIN TIME (BEAKER) (test 29.1 seconds 22.5-36.0 znpw=543) PROTHROMBIN TIME/[id number] 04:01:00 Test Item Value Reference Range Comments PROTIME (BEAKER) (test ahnw=698) 13.4 seconds 11.7-14.7 INR (BEAKER) (test rafj=351) 1.0 <=5.9 RECOMMENDED COUMADIN/WARFARIN INR THERAPY RANGESSTANDARD DOSE: 2.0 - 3.0 Includes: PROPHYLAXIS forvenous thrombosis, systemic embolization; TREATMENT for venous thrombosis and/or pulmonary embolus.HIGH RISK: Target INR is 2.5-3.5 for patients with mechanical heart valves.POCT-GLUCOSE [id number] 00:10:00 Test Item Value Reference Range Comments POC-GLUCOSE METER (BEAKER) 225 mg/dL 70-[address] [facility] [address] [facility] (test cwys=1697) [facility] [id number] POCT-GLUCOSE [id number] 06:14:00 Test Item Value Reference Range Comments POC-GLUCOSE METER (BEAKER) 129 mg/dL 70-[address] [facility] [address] [facility] (test ossz=0749) [facility] [address] TSH/FREE T4 IF [id number] 04:46:00 Test Item Value Reference Range Comments THYROID STIMULATING HORMONE (BEAKER) (test 0.87 uIU/mL 0.35-4.94 bujy=806) CBC W/PLT COUNT & AUTO [id number] 04:30:00 Test Item Value Reference Range Comments WHITE BLOOD CELL COUNT (BEAKER) (test khrd=558) 16.2 K/ L 3.5-10.5 RED BLOOD CELL COUNT (BEAKER) (test sxmv=277) 4.01 M/ L 4.63-6.08 HEMOGLOBIN (BEAKER) (test mjgp=316) 12.9 GM/DL 13.7-17.5 HEMATOCRIT (BEAKER) (test zdhl=104) 41.0 % 40.1-51.0 MEAN CORPUSCULAR VOLUME (BEAKER) (test adqr=755) 102.2 fL 79.0-92.2 MEAN CORPUSCULAR HEMOGLOBIN (BEAKER) (test 32.2 pg 25.7-32.2 cygr=083) MEAN CORPUSCULAR HEMOGLOBIN CONC (BEAKER) (test 31.5 GM/DL 32.3-36.5 cusy=444) RED CELL DISTRIBUTION WIDTH (BEAKER) (test 14.5 % 11.6-14.4 rpgn=689) PLATELET COUNT (BEAKER) (test mmzj=389) 176 K/CU MM 150-450 MEAN PLATELET VOLUME (BEAKER) (test uetc=985) 10.9 fL 9.4-12.4 NUCLEATED RED BLOOD CELLS (BEAKER) (test 0 /100 WBC 0-0 ctrt=729) NEUTROPHILS RELATIVE PERCENT (BEAKER) (test 93 % vrwh=640) LYMPHOCYTES RELATIVE PERCENT (BEAKER) (test 2 % gdwd=399) MONOCYTES RELATIVE PERCENT (BEAKER) (test 4 % vbmt=679) EOSINOPHILS RELATIVE PERCENT (BEAKER) (test 0 % ujuu=301) BASOPHILS RELATIVE PERCENT (BEAKER) (test 0 % zlwk=872) NEUTROPHILS ABSOLUTE COUNT (BEAKER) (test 15.09 K/ L 1.78-5.38 gshn=370) LYMPHOCYTES ABSOLUTE COUNT (BEAKER) (test 0.28 K/ L 1.32-3.57 eeiu=535) MONOCYTES ABSOLUTE COUNT (BEAKER) (test 0.60 K/ L 0.30-0.82 wvnx=935) EOSINOPHILS ABSOLUTE COUNT (BEAKER) (test 0.00 K/ L 0.04-0.54 owgx=392) BASOPHILS ABSOLUTE COUNT (BEAKER) (test 0.02 K/ L 0.01-0.08 xizm=852) IMMATURE GRANULOCYTES-RELATIVE PERCENT (BEAKER) 1 % 0-1 (test bszm=4193) [id number] 04:26:00 Test Item Value Reference Range Comments PREALBUMIN (BEAKER) (test nsea=331) 25 mg/dL 14-45 [id number] 04:24:00 Test Item Value Reference Range Comments PHOSPHORUS (BEAKER) (test cshh=680) 3.5 mg/dL 2.3-4.7 [id number] 04:24:00 Test Item Value Reference Range Comments MAGNESIUM (BEAKER) (test ichp=197) 2.0 mg/dL 1.6-2.6 BASIC METABOLIC [id number] 04:24:00 Test Item Value Reference Range Comments SODIUM (BEAKER) (test 140 meq/L 136-145 zvpa=017) POTASSIUM (BEAKER) (test 3.9 meq/L 3.5-5.1 jjnt=331) CHLORIDE (BEAKER) (test 105 meq/L 98-107 mvpk=380) CO2 (BEAKER) (test 26 meq/L 22-29 klgf=089) BLOOD UREA NITROGEN 11 mg/dL 7-21 (BEAKER) (test kyrx=372) CREATININE (BEAKER) (test 0.67 mg/dL 0.57-1.25 rixq=326) GLUCOSE RANDOM (BEAKER) 129 mg/dL 70-105 (test ozxl=489) CALCIUM (BEAKER) (test 9.2 mg/dL 8.4-10.2 befv=338) EGFR (BEAKER) (test 127 mL/min/1.73 sq m ESTIMATED GFR IS NOT nvhx=5683) ACCURATE CREATININE CLEARANCE IN PREDICTING GLOMERULAR FILTRATION RATE. ESTIMATED GFR IS NOT APPLICABLE FOR DIALYSIS PATIENTS. PROTHROMBIN TIME/[id number] 04:19:00 Test Item Value Reference Range Comments PROTIME (BEAKER) (test imfw=859) 14.5 seconds 11.7-14.7 INR (BEAKER) (test xpgx=324) 1.1 <=5.9 RECOMMENDED COUMADIN/WARFARIN INR THERAPY RANGESSTANDARD DOSE: 2.0 - 3.0 Includes: PROPHYLAXIS forvenous thrombosis, systemic embolization; TREATMENT for venous thrombosis and/or pulmonary embolus.HIGH RISK: Target INR is 2.5-3.5 for patients with mechanical heart valves.[id number] 04:19:00 Test Item Value Reference Range Comments PARTIAL THROMBOPLASTIN TIME (BEAKER) (test 29.7 seconds 22.5-36.0 hpfb=085) POCT-GLUCOSE [id number] 01:04:00 Test Item Value Reference Range Comments POC-GLUCOSE METER (BEAKER) 128 mg/dL 70-110 TESTED AT [address] (test jouj=2939) [facility] [address] POCT-GLUCOSE [id number] 18:19:00 Test Item Value Reference Range Comments POC-GLUCOSE METER (BEAKER) 93 mg/dL 70-110 TESTED AT [address] (test fomz=4852) [facility] [address] POCT-GLUCOSE [id number] 11:44:00 Test Item Value Reference Range Comments POC-GLUCOSE METER (BEAKER) 87 mg/dL 70-110 TESTED AT [address] (test ixll=3300) [facility] [address] POCT-GLUCOSE [id number] 06:13:00 Test Item Value Reference Range Comments POC-GLUCOSE METER (BEAKER) 158 mg/dL 70-110 TESTED AT [address] (test uwvx=2994) [facility] [address] BLOOD GAS, [id number] 04:53:00 Test Item Value Reference Range Comments PH VENOUS (BEAKER) (test xcqf=517) 7.48 7.32-7.42 PCO2 VENOUS (BEAKER) (test krnc=613) 37 mmHg 41-51 PO2 VENOUS (BEAKER) (test gtzk=073) 94 mmHg 25-40 O2 SATURATION VENOUS (BEAKER) (test qoop=754) 97.7 % 40.0-70.0 HCO3 VENOUS (BEAKER) (test krnw=842) 27 mmol/L 21-29 BASE EXCESS VENOUS (BEAKER) (test xesz=032) 3.7 mmol/L -2.0-3.0 PATIENT TEMPERATURE (BEAKER) (test cwbd=6742) 37.0 C RAD, CHEST, 1 VIEW, NON [id number] 04:42:00Reason for exam:->s/p tracheostomyShould this be performed at the bedside?->YesFINAL REPORT RAD, CHEST, 1 VIEW, NON DEPT INDICATION: s/p tracheostomy COMPARISON: Prior day's exam FINDINGS: Portable frontal view of the chest. IMPRESSION: Support Lines: Stable. Lungs and pleura: Increased left retrocardiac and right basilar opacities could represent atelectasis however developing infection can have a similar appearance in the proper clinical setting. Small bilateral pleural effusions. Previously seen left apical pneumothorax is not identified on the current examination.Heart and mediastinum: Stable contours. Additional findings: None. Signed: Sridevi Carrillo Verified Date/Time: 06/10/2018 04:42:37 Reading Location: [address] Reading Room [id number] 04:29:00 Test Item Value Reference Range Comments MAGNESIUM (BEAKER) (test 2.2 mg/dL 1.6-2.6 Specimen slightly hemolyzed ficg=273) [id number] 04:29:00 Test Item Value Reference Range Comments PHOSPHORUS (BEAKER) (test 3.7 mg/dL 2.3-4.7 Specimen slightly hemolyzed ytqz=886) BASIC METABOLIC [id number] 04:29:00 Test Item Value Reference Range Comments SODIUM (BEAKER) (test 139 meq/L 136-145 clpn=871) POTASSIUM (BEAKER) (test 4.0 meq/L 3.5-5.1 Specimen slightly awwc=318) hemolyzed CHLORIDE (BEAKER) (test 105 meq/L 98-107 uxwl=167) CO2 (BEAKER) (test 24 meq/L 22-29 hooe=709) BLOOD UREA NITROGEN 11 mg/dL 7-21 (BEAKER) (test kmps=251) CREATININE (BEAKER) (test 0.70 mg/dL 0.57-1.25 Specimen slightly aeyi=200) hemolyzed GLUCOSE RANDOM (BEAKER) 159 mg/dL 70-105 (test dmnh=035) CALCIUM (BEAKER) (test 9.4 mg/dL 8.4-10.2 ymck=327) EGFR (BEAKER) (test 121 mL/min/1.73 sq m ESTIMATED GFR IS NOT qudc=9908) ACCURATE CREATININE CLEARANCE IN PREDICTING GLOMERULAR FILTRATION RATE. ESTIMATED GFR IS NOT APPLICABLE FOR DIALYSIS PATIENTS. [id number] 04:18:00 Test Item Value Reference Range Comments PARTIAL THROMBOPLASTIN TIME (BEAKER) (test 24.5 seconds 22.5-36.0 hetg=367) PROTHROMBIN TIME/[id number] 04:17:00 Test Item Value Reference Range Comments PROTIME (BEAKER) (test axwj=738) 13.7 seconds 11.7-14.7 INR (BEAKER) (test rsxt=539) 1.0 <=5.9 RECOMMENDED COUMADIN/WARFARIN INR THERAPY RANGESSTANDARD DOSE: 2.0 - 3.0 Includes: PROPHYLAXIS forvenous thrombosis, systemic embolization; TREATMENT for venous thrombosis and/or pulmonary embolus.HIGH RISK: Target INR is 2.5-3.5 for patients with mechanical heart valves.CBC W/PLT COUNT & AUTO [id number] 04:06:00 Test Item Value Reference Range Comments WHITE BLOOD CELL COUNT (BEAKER) (test ppcm=091) 17.9 K/ L 3.5-10.5 RED BLOOD CELL COUNT (BEAKER) (test mzua=269) 4.34 M/ L 4.63-6.08 HEMOGLOBIN (BEAKER) (test ahoy=210) 13.7 GM/DL 13.7-17.5 HEMATOCRIT (BEAKER) (test egho=754) 42.8 % 40.1-51.0 MEAN CORPUSCULAR VOLUME (BEAKER) (test rzbs=130) 98.6 fL 79.0-92.2 MEAN CORPUSCULAR HEMOGLOBIN (BEAKER) (test 31.6 pg 25.7-32.2 jzwk=335) MEAN CORPUSCULAR HEMOGLOBIN CONC (BEAKER) (test 32.0 GM/DL 32.3-36.5 jlwg=283) RED CELL DISTRIBUTION WIDTH (BEAKER) (test 14.4 % 11.6-14.4 eggu=067) PLATELET COUNT (BEAKER) (test gosg=580) 194 K/CU MM 150-450 MEAN PLATELET VOLUME (BEAKER) (test ldfm=995) 10.5 fL 9.4-12.4 NUCLEATED RED BLOOD CELLS (BEAKER) (test 0 /100 WBC 0-0 khof=135) NEUTROPHILS RELATIVE PERCENT (BEAKER) (test 92 % loit=878) LYMPHOCYTES RELATIVE PERCENT (BEAKER) (test 2 % kzei=902) MONOCYTES RELATIVE PERCENT (BEAKER) (test 5 % ubxz=433) EOSINOPHILS RELATIVE PERCENT (BEAKER) (test 0 % iotc=596) BASOPHILS RELATIVE PERCENT (BEAKER) (test 0 % vwor=054) NEUTROPHILS ABSOLUTE COUNT (BEAKER) (test 16.35 K/ L 1.78-5.38 vnam=041) LYMPHOCYTES ABSOLUTE COUNT (BEAKER) (test 0.40 K/ L 1.32-3.57 rtul=553) MONOCYTES ABSOLUTE COUNT (BEAKER) (test 0.86 K/ L 0.30-0.82 tdrr=467) EOSINOPHILS ABSOLUTE COUNT (BEAKER) (test 0.00 K/ L 0.04-0.54 dbjt=188) BASOPHILS ABSOLUTE COUNT (BEAKER) (test 0.03 K/ L 0.01-0.08 qaig=224) IMMATURE GRANULOCYTES-RELATIVE PERCENT (BEAKER) 1 % 0-1 (test nmfz=6522) POCT-GLUCOSE [id number] 01:05:00 Test Item Value Reference Range Comments POC-GLUCOSE METER (BEAKER) 161 mg/dL 70-110 TESTED AT [address] (test rjna=9890) [facility] [address] RAD, CHEST, 1 VIEW, NON [id number] 22:19:00Reason for exam:->Laryngeal massShould this be performed at the bedside?->YesFINAL REPORT AP view of the chest dated 06/09/2018 CLINICAL INFORMATION: Laryngeal mass Comment: Heart is normal in size. Pulmonary vasculature is unremarkable. Opacity is seen in the left lower lobe suggestive of subsegmental atelectasis or pneumonia. Subsegmental atelectasis is seen in the right upper lobe. The rest of the lungs are clear. There is trace left pleural effusion. Left chest tube and tracheostomy tube remain in place. Signed: Lucy Morales MDReport Verified Date/Time: 06/09/2018 22:19:49 Reading Location: [address] Consult Reading Room 10: 19 PMRAD, CHEST, 1 VIEW, NON [id number] 20:37:00Reason for exam:-> Laryngeal massShould this be performed at the bedside?->YesFINAL REPORT AP view of the chest dated 06/09/2018 CLINICAL INFORMATION: Laryngeal mass Comment: Heart is normal in size. Pulmonary vasculature is unremarkable. Opacities is seen in the left lower hemithorax suggesting subsegmental atelectasis or pneumonia. The rest of lungs are clear. No pleural effusion is present. Impression: Left lower lobe subsegmental atelectasis or pneumonia. Signed: Lucy Morales MDReport Verified Date/Time: 01/2019 20:37:30 Reading Location: [address] Reading Room RAD, CHEST, 1 VIEW, NON [id number] 20:18:00Reason for exam:->Post-opShould this be performed at the bedside?->YesFINAL REPORT RAD, CHEST , 1 VIEW, NON DEPT INDICATION: Post-op COMPARISON: Prior day's exam FINDINGS: Portable frontal view of the chest. IMPRESSION: Support Lines: Tracheostomy cannula is appropriately positioned at the thoracic inlet. Left-sided chest tube is noted. Lungs and pleura: Left basilar and retrocardiac atelectasis. Airspace opacities in the bilateral apices may represent scarring however close attention on follow-up is advised. No large pleural effusion. Trace left apical pneumothorax. Heart and mediastinum: Within normal limits. Additional findings: Osseous structures are unremarkable. Signed: Sridevi Carrillo MDReport Verified Date/Time: 06/09/2018 20:18:45 Reading Location: [address] Reading Room CBC W/PLT COUNT & AUTO [id number] 19:32:00 Test Item Value Reference Range Comments WHITE BLOOD CELL COUNT (BEAKER) (test utdp=234) 22.9 K/ L 3.5-10.5 RED BLOOD CELL COUNT (BEAKER) (test jepz=695) 4.82 M/ L 4.63-6.08 HEMOGLOBIN (BEAKER) (test exhz=655) 15.5 GM/DL 13.7-17.5 HEMATOCRIT (BEAKER) (test cexm=418) 48.5 % 40.1-51.0 MEAN CORPUSCULAR VOLUME (BEAKER) (test qkmx=460) 100.6 fL 79.0-92.2 MEAN CORPUSCULAR HEMOGLOBIN (BEAKER) (test 32.2 pg 25.7-32.2 sctp=155) MEAN CORPUSCULAR HEMOGLOBIN CONC (BEAKER) (test 32.0 GM/DL 32.3-36.5 vvrb=260) RED CELL DISTRIBUTION WIDTH (BEAKER) (test 14.5 % 11.6-14.4 kffh=728) PLATELET COUNT (BEAKER) (test uwba=384) 201 K/CU MM 150-450 MEAN PLATELET VOLUME (BEAKER) (test uznx=161) 10.1 fL 9.4-12.4 NUCLEATED RED BLOOD CELLS (BEAKER) (test 0 /100 WBC 0-0 ezed=528) (CELLAVISION MANUAL DIFF)2018-06-09 19:32:00 Test Item Value Reference Range Comments NEUTROPHILS - REL (CELLAVISION)(BEAKER) (test 94 % xxiv=5800) MONOCYTES - REL (CELLAVISION)(BEAKER) (test 4 % nptj=9031) BANDS - REL (CELLAVISION)(BEAKER) (test 1 % 0-10 bhja=4131) NEUTROPHILS - ABS (CELLAVISION)(BEAKER) (test 21.53 K/ul 1.78-5.38 vimw=4795) MONOCYTES - ABS (CELLAVISION)(BEAKER) (test 0.92 K/uL 0.30-0.82 fptr=2132) BANDS - ABS (CELLAVISION)(BEAKER) (test 0.23 K/uL 0.00-0.80 ztpq=7154) TOTAL COUNTED (BEAKER) (test rcgd=7327) 100 RBC MORPHOLOGY (BEAKER) (test tvzb=797) Normal PLT MORPHOLOGY (BEAKER) (test tcay=520) Normal HYPERSEGMENTATION (CELLAVISION)(BEAKER) (test Present fdhz=4336) ARTIFACT (CELLAVISION)(BEAKER) (test zack=1961) Present PLATELET CONCENTRATION (CELLAVISION)(BEAKER) Adequate (test fnvg=2924) Received comment: User comments: Slide comments:[id number] 19:25:00 Test Item Value Reference Range Comments PHOSPHORUS (BEAKER) (test lawc=930) 4.7 mg/dL 2.3-4.7 [id number] 19:25:00 Test Item Value Reference Range Comments MAGNESIUM (BEAKER) (test jyhi=889) 2.2 mg/dL 1.6-2.6 BASIC METABOLIC [id number] 19:25:00 Test Item Value Reference Range Comments SODIUM (BEAKER) (test 139 meq/L 136-145 dtvj=526) POTASSIUM (BEAKER) (test 3.9 meq/L 3.5-5.1 dtny=859) CHLORIDE (BEAKER) (test 103 meq/L 98-107 hrxj=501) CO2 (BEAKER) (test 27 meq/L 22-29 uuzv=529) BLOOD UREA NITROGEN 15 mg/dL 7-21 (BEAKER) (test mhgc=827) CREATININE (BEAKER) (test 0.81 mg/dL 0.57-1.25 idar=570) GLUCOSE RANDOM (BEAKER) 139 mg/dL 70-105 (test cyks=225) CALCIUM (BEAKER) (test 9.3 mg/dL 8.4-10.2 lukt=607) EGFR (BEAKER) (test 102 mL/min/1.73 sq m ESTIMATED GFR IS NOT iotg=7040) ACCURATE CREATININE CLEARANCE IN PREDICTING GLOMERULAR FILTRATION RATE. ESTIMATED GFR IS NOT APPLICABLE FOR DIALYSIS PATIENTS. PROTHROMBIN TIME/[id number] 19:18:00 Test Item Value Reference Range Comments PROTIME (BEAKER) (test yjin=969) 13.0 seconds 11.7-14.7 INR (BEAKER) (test wvpd=331) 1.0 <=5.9 RECOMMENDED COUMADIN/WARFARIN INR THERAPY RANGESSTANDARD DOSE: 2.0 - 3.0 Includes: PROPHYLAXIS forvenous thrombosis, systemic embolization; TREATMENT for venous thrombosis and/or pulmonary embolus.HIGH RISK: Target INR is 2.5-3.5 for patients with mechanical heart valves.[id number] 19:18:00 Test Item Value Reference Range Comments PARTIAL THROMBOPLASTIN TIME (BEAKER) (test 24.0 seconds 22.5-36.0 vdtx=087) [id number] 12:47:00 Test Item Value Reference Range Comments HEMOGLOBIN (BEAKER) (test hufs=499) 15.7 GM/DL 13.7-17.5 PLATELET [id number] 12:47:00 Test Item Value Reference Range Comments PLATELET COUNT (BEAKER) (test jbyu=191) 203 K/CU MM 150-450
--- NOTE | 2018-08-29 15:00 | RAD REPORT ---
EXAM DESCRIPTION: CT - Soft Tissue Neck W/Contr CLINICAL HISTORY: right side neck wound with drainage Pain and swelling to neck. COMPARISON: Soft Tissue Neck Wo Contr dated 05/26/2018; Soft Tissue Neck Wo Contr dated 10/05/2017; Rad Therapy [address] Neck dated 08/27/2017; Soft Tissue Neck Wo Contr dated 08/11/2017; Ct Skull/Thigh da meng 06/05/[address] scans are performed using dose optimization technique as appropriate and may includ e automated exposure control or mA/KV adjustment according to patient size. FINDINGS: A triangular rim enhancing somewhat poorly defined fluid collection is seen in the right s ubmandibular region, inferior to the level of the right submandibular gland measuring 14 x 25 x 16 mm (AP x T x CC) mm. Small air bubble is noted within the collection. There are numerous adjacent surgi julieta clips in the region. The collection likely represents a small abscess. This abscess is along the superficial right anterior soft tissues of the neck approximately at the C3-4 disc space level. Tracheostomy tube is in place. Evidence of a previous laryngectomy noted. IMPRESSION: Small triangular abscess is noted (14 x 25 x 16 mm) inferior right submandibular region. Postoperative changes of a previous laryngectomy noted.
[2018-08-29] MEDS: VANCOMYCIN 1.5 GM in NA CHLORIDE 0.9% 500 ML IVPB SCH (16:00)
--- NOTE | 2018-08-29 16:50 | ER ---
Nurse's Notes [facility] Name: Akin Pugh Age: 48 yrs Sex: Male : 1970 Arrival Date: 08/29/2018 Time: 12:25 Bed 4 Private MD: Diagnosis: Right submandibular abscess Presentation: 08/29 12:32 Presenting complaint: Patient states: neck wound, is on abx for over a month by Dr idris Pardo. Is on Clindamycin and Cefdinir. c/o fever TMax 103. Transition of care: patient was not received from another setting of care. Onset of symptoms is unknown. Care prior to arrival: None. 12:32 Method Of Arrival: Ambulatory sv 12:32 Acuity: PAO 3 sv 12:41 Initial Sepsis Screen: Does the patient meet any 2 criteria? No. Patient's initial sv sepsis screen is negative. Does the patient have a suspected source of infection? Yes: Skin breakdown/wound. 15:13 Risk Assessment: Do you want to hurt yourself or someone else? Patient reports no tw2 desire to harm self or others. Triage Assessment: 12:35 General: Appears uncomfortable, Behavior is agitated, anxious. Pain: Complains of pain ae4 in right sternocleidomastoid. Derm: Wound noted right sternocleidomastoid Wound is Area appears reddened, swollen, with purulent discharge,. Patient states he applied bandage at 0900 this morning and has soaked through with pus. Historical: - Allergies: 12:34 Ampicillin; sv 12:34 Iodinated Contrast Media - IV Dye; sv 12:34 Iodine; sv 12:34 Levaquin; sv - Home Meds: 15:37 escitalopram oxalate Oral [Active]; Levoxyl Oral [Active]; tw2 - PMHx: 12:34 Asthma; COPD; THROAT CA; sv - PSHx: 12:34 Appendectomy; trach x2; chest tube; laryngectomy; sv - Immunization history:: Adult Immunizations. - Social history:: Smoking status: . - Ebola Screening: : Patient denies travel to an Ebola-affected area in the 21 days before illness onset. Screenin:58 Abuse screen: Denies threats or abuse. Nutritional screening: No deficits noted. tw2 Tuberculosis screening: No symptoms or risk factors identified. Fall Risk None identified. Assessment: 12:48 General: Appears uncomfortable, Behavior is cooperative, agitated, anxious. ae4 Respiratory: Airway via trache Respiratory effort is shallow, Patient points and tracheostomy and wrote on provided paper he needs to be suctioned and wrote 14 FR. Respiratory arrived at bedside and suctioned patient. 12:50 Reassessment: RT states pt suctions himself, although pt is not using sterile technique tw2 and tucking the suction tubing under his shorts, pt educated as to proper sterile technique at this time. 13:46 Reassessment: Patient appears in no apparent distress at this time. Patient and/or tw2 family updated on plan of care and expected duration. Pain level reassessed. 14:30 Reassessment: Patient appears in no apparent distress at this time. Patient and/or tw2 family updated on plan of care and expected duration. Pain level reassessed. 15:14 Reassessment: Patient appears in no apparent distress at this time. Patient and/or tw2 family updated on plan of care and expected duration. Pain level reassessed. 15:35 Reassessment: medication not available in yis at this time, awaiting delivery of abx. tw2 16:11 Reassessment: Patient appears in no apparent distress at this time. Patient and/or tw2 family updated on plan of care and expected duration. Pain level reassessed. 16:59 Reassessment: Patient updated on plan of care and impending admission to room 203. ae4 Vital Signs: 12:41 BP 125 / 84; Pulse 85; Resp 20; Temp 99.25; Pulse Ox 99% ; Weight 86.18 kg; Height 6 sv ft. 0 in. (182.88 cm); 13:45 BP 130 / 83; Pulse 93; Resp 17; Pulse Ox 100% on R/A; tw2 14:30 BP 120 / 80; Pulse 72; Resp 17; Pulse Ox 98% on R/A; tw2 15:02 Pulse 69; Resp 18; Pulse Ox 99% on R/A; ae4 15:07 BP 112 / 58; Pulse 76; Resp 17; Pulse Ox 100% on R/A; tw2 16:11 BP 134 / 86; Pulse 80; Resp 18; Pulse Ox 99% on R/A; tw2 12:41 Body Mass Index 25.77 (86.18 kg, 182.88 cm) sv ED Course: 12:25 Patient arrived in ED. as 12:32 Arm band placed on. sv 12:33 Triage completed. sv 12:34 Bed in low position. Call light in reach. Pulse ox on. NIBP on. tw2 12:42 Castillo Haywood, RN is Primary Nurse. ae4 12:43 Ren Hooks PA is PHCP. cp 12:43 Eligio Gilbert MD is Attending Physician. cp 13:24 Radiology exam delayed due to lab results not completed at this time. (BUN/Creatinine). vm2 13:30 Inserted saline lock: 22 gauge in right forearm, using aseptic technique. Blood tw2 collected. 13:34 X-ray completed. Portable x-ray completed in exam room. Patient tolerated procedure sw well. 13:35 Chest Single View XRAY In Process Unspecified. EDMS 14:43 Second set of blood cultures drawn. ms 14:47 CT Soft Tissue Neck W/contr In Process Unspecified. EDMS 16:48 Tyrone Mc DO is Hospitalizing Provider. cp 17:05 No provider procedures requiring assistance completed. Patient admitted, IV remains in tw2 place. Administered Medications: 13:38 Drug: Zofran 4 mg Route: IVP; Site: right forearm; tw2 15:03 Follow up: Response: No adverse reaction tw2 13:40 Drug: morphine 4 mg Route: IVP; Site: right forearm; tw2 15:02 Follow up: Response: No adverse reaction; Pain is decreased tw2 14:38 Drug: SOLU-Medrol 125 mg Route: IVP; Site: right forearm; tw2 15:02 Follow up: Response: No adverse reaction tw2 14:40 Drug: Benadryl 25 mg Route: IVP; Site: right forearm; tw2 15:02 Follow up: Response: No adverse reaction tw2 14:42 Drug: Pepcid 20 mg Route: IVP; Site: right forearm; tw2 15:02 Follow up: Response: No adverse reaction tw2 15:48 Drug: morphine 4 mg Route: IVP; Site: right forearm; tw2 16:30 Follow up: Response: No adverse reaction; Pain is decreased tw2 16:30 Drug: vancoMYCIN 1 grams Route: IVPB; Infused Over: 2 hrs; Site: right forearm; tw2 17:07 Follow up: IV Status: Infusion continued upon admission tw2 Outcome: 16:48 Decision to Hospitalize by Provider. cp 17:05 Admitted to Med/surg accompanied by tech, via wheelchair, room 203, with chart, Report tw2 called to JEAN Kumari 17:05 Condition: stable 17:05 Instructed on the need for admit. 17:33 Patient left the ED. tw2 Signatures: Dispatcher [employer] EDKeya Bhatt, RN RN Darling Jones Maria ms Bk, Ren Lobo, PA PA Chelsie Castillo RN RN tw2 Marlyn Delgado 2 Castillo Haywood RN RN ae4 Corrections: (The following items were deleted from the chart) 12:35 12:32 Presenting complaint: Patient states: neck wound, is on abx for over a month by idris Pardo. 15:12 15:07 BP 112 / 58; ae4 tw2
--- NOTE | 2018-08-29 16:50 | EDPHYS ---
Physician Documentation [facility] Name: Akin Pugh Age: 48 yrs Sex: Male : 1970 Arrival Date: 08/29/2018 Time: 12:25 Bed 4 Private MD: ED Physician Eligio Gilbert HPI: 08/29 13:22 This 48 yrs old Male presents to ER via Ambulatory with complaints of Neck cp Pain, >24Hrs Old - Infection, Fever. 13:22 The patient or guardian complains of draining wound. cp 13:22 The symptoms are located on the right lateral neck. Onset: The symptoms/episode cp began/occurred gradually, and became worse today. Associated signs and symptoms: Pertinent positives: fever. Patient reports he saw DR Barragan Saturday for wound on right side of neck who prescribed clindamycin. Patient reports he then saw DR Pardo yesterday who added Cefdinir. Patient reports increased drainage from wound and fever today. Denies difficulty swallowing. Historical: - Allergies: 12:34 Ampicillin; sv 12:34 Iodinated Contrast Media - IV Dye; sv 12:34 Iodine; sv 12:34 Levaquin; sv - Home Meds: 15:37 escitalopram oxalate Oral [Active]; Levoxyl Oral [Active]; tw2 - PMHx: 12:34 Asthma; COPD; THROAT CA; sv - PSHx: 12:34 Appendectomy; trach x2; chest tube; laryngectomy; sv - Immunization history:: Adult Immunizations. - Social history:: Smoking status: . - Ebola Screening: : Patient denies travel to an Ebola-affected area in the 21 days before illness onset. ROS: 13:30 Constitutional: Positive for low grade fever, Negative for body aches, chills, poor PO cp intake. 13:30 Eyes: Negative for injury, pain, redness, and discharge. cp 13:30 ENT: Negative for drainage from ear(s), ear pain, sore throat, difficulty swallowing, difficulty handling secretions. 13:30 Neck: Positive for pain with movement, pain at rest, draining wound right side of neck, Negative for stiffness, bony tenderness. 13:30 Cardiovascular: Negative for chest pain. 13:30 Respiratory: Negative for wheezing. 13:30 Abdomen/GI: Negative for abdominal pain, nausea, vomiting, and diarrhea. 13:30 Back: Negative for pain at rest, pain with movement. 13:30 : Negative for urinary symptoms. 13:30 Neuro: Negative for altered mental status, headache, weakness. 13:30 All other systems are negative. Exam: 13:35 Constitutional: The patient appears in no acute distress, alert, awake, cp non-diaphoretic, non-toxic, well developed, well nourished. 13:35 Head/Face: Normocephalic, atraumatic. cp 13:35 Eyes: Periorbital structures: appear normal, Conjunctiva: normal, no exudate, no injection, Sclera: no appreciated abnormality, Lids and lashes: appear normal, bilaterally. 13:35 ENT: External ear(s): are unremarkable, Ear canal(s): are normal, clear, TM's: dullness, bilaterally, Nose: is normal, Mouth: Lips: moist, Oral mucosa: pink and intact, moist, Posterior pharynx: is normal, airway is patent, no erythema, no exudate. 13:35 Neck: External neck: abscess, that is moderate-sized, draining, right lateral neck, tenderness, that is moderate, ROM/movement: is normal, is supple, no range of motions limitations, no meningismus, no nuchal rigidity, noted tracheostomy. 13:35 Chest/axilla: Inspection: normal, Palpation: is normal, no crepitus, no tenderness. 13:35 Cardiovascular: Rate: normal, Rhythm: regular. 13:35 Respiratory: the patient does not display signs of respiratory distress, Respirations: normal, no use of accessory muscles, no retractions, no splinting, no tachypnea, labored breathing, is not present, Breath sounds: are clear throughout, no decreased breath sounds, no stridor, no wheezing. 13:35 Abdomen/GI: Inspection: abdomen appears normal. 13:35 Neuro: Orientation: to person, place \T\ time. Mentation: is normal, Cerebellar function: is grossly normal, Motor: is normal. Vital Signs: 12:41 BP 125 / 84; Pulse 85; Resp 20; Temp 99.25; Pulse Ox 99% ; Weight 86.18 kg; Height 6 sv ft. 0 in. (182.88 cm); 13:45 BP 130 / 83; Pulse 93; Resp 17; Pulse Ox 100% on R/A; tw2 14:30 BP 120 / 80; Pulse 72; Resp 17; Pulse Ox 98% on R/A; tw2 15:02 Pulse 69; Resp 18; Pulse Ox 99% on R/A; ae4 15:07 BP 112 / 58; Pulse 76; Resp 17; Pulse Ox 100% on R/A; tw2 16:11 BP 134 / 86; Pulse 80; Resp 18; Pulse Ox 99% on R/A; tw2 12:41 Body Mass Index 25.77 (86.18 kg, 182.88 cm) sv MDM: 13:06 Patient medically screened. cp 13:30 Differential diagnosis: cellulitis, abscess, sepsis. cp 15:10 Data reviewed: vital signs, nurses notes, lab test result(s), radiologic studies, CT cp scan, plain films. 15:10 Test interpretation: by ED physician or midlevel provider: plain radiologic studies. cp Counseling: I had a detailed discussion with the patient and/or guardian regarding: the historical points, exam findings, and any diagnostic results supporting the discharge/admit diagnosis, lab results, radiology results, the need for further work-up and treatment in the hospital. Response to treatment: the patient's symptoms have mildly improved after treatment. 15:23 Physician consultation: Keay Pardo MD was called at 15:20, regarding consult, cp patient's condition, left message on voicemail. 15:54 Physician consultation: Keya Pardo MD was called at 15:50, was contacted at 15:50, regarding consult, patient's condition, would like admission per Dr. Keshia Salinas MD. 08/29 13:08 Order name: Basic Metabolic Panel; Complete Time: 14:50 08/29 14:50 Interpretation: Normal except: CL 109. 08/29 13:08 Order name: Blood Culture Adult (2) 08/29 13:08 Order name: CBC with Diff; Complete Time: 14:50 08/29 14:50 Interpretation: Normal except: HGB 13.3; RDW 16.8; SELVIN% 80.4; LYM% 7.7. 08/29 13:08 Order name: Lactate; Complete Time: 15:03 08/29 13:08 Order name: LFT's; Complete Time: 14:50 08/29 14:50 Interpretation: Normal except: AST 10; GLOB 3.8; A/G 0.9. 08/29 13:08 Order name: Procalcitonin; Complete Time: 14:50 cp 08/29 15:04 Interpretation: Reviewed. 08/29 13:08 Order name: Protime (+inr); Complete Time: 14:50 cp 08/29 13:08 Order name: Ptt, Activated; Complete Time: 14:50 cp 08/29 13:08 Order name: Chest Single View XRAY; Complete Time: 14:50 08/29 13:08 Order name: Wound Culture 08/29 13:14 Order name: CT Soft Tissue Neck W/contr; Complete Time: 15:03 cp 08/29 15:49 Order name: Vancomycin Level Trough EDMS 08/29 13:08 Order name: Cardiac monitoring; Complete Time: 13:18 cp 08/29 13:08 Order name: IV Saline Lock - Large Bore; Complete Time: 13:44 cp 08/29 13:08 Order name: Labs collected and sent; Complete Time: 13:45 08/29 13:08 Order name: O2 Per Protocol; Complete Time: 13:18 cp 08/29 13:08 Order name: O2 Sat Monitoring; Complete Time: 13:18 cp Administered Medications: 13:38 Drug: Zofran 4 mg Route: IVP; Site: right forearm; tw2 15:03 Follow up: Response: No adverse reaction tw2 13:40 Drug: morphine 4 mg Route: IVP; Site: right forearm; tw2 15:02 Follow up: Response: No adverse reaction; Pain is decreased tw2 14:38 Drug: SOLU-Medrol 125 mg Route: IVP; Site: right forearm; tw2 15:02 Follow up: Response: No adverse reaction tw2 14:40 Drug: Benadryl 25 mg Route: IVP; Site: right forearm; tw2 15:02 Follow up: Response: No adverse reaction tw2 14:42 Drug: Pepcid 20 mg Route: IVP; Site: right forearm; tw2 15:02 Follow up: Response: No adverse reaction tw2 15:48 Drug: morphine 4 mg Route: IVP; Site: right forearm; tw2 16:30 Follow up: Response: No adverse reaction; Pain is decreased tw2 16:30 Drug: vancoMYCIN 1 grams Route: IVPB; Infused Over: 2 hrs; Site: right forearm; tw2 17:07 Follow up: IV Status: Infusion continued upon admission tw2 Disposition: 08/30 07:41 Co-signature as Attending Physician, Eligio Gilbert MD I agree with the assessment and kdr plan of care. Disposition: 08/29/18 16:48 Hospitalization ordered by Tyrone Mc for Inpatient Admission. Preliminary diagnosis is Right submandibular abscess. - Bed requested for Telemetry/MedSurg (Inpatient). - Status is Inpatient Admission. tw2 - Condition is Stable. - Problem is new. - Symptoms have improved. UTI on Admission? No Signatures: Dispatcher [employer] EDKeya Bhatt, RN RN Eligio Herring MD MD [facility] Ren [place] PA PA cp Ya Acosta RN RN Chelsie Saucedo RN RN tw2 Corrections: (The following items were deleted from the chart) 08/29 13:44 13:08 Accucheck ordered. cp tw2 16:49 16:48 Hospitalization Ordered by Tyrone Mc DO for Inpatient Admission. Preliminary hb diagnosis is Cutaneous abscess of neck. Bed requested for Telemetry/MedSurg (Inpatient). Status is Inpatient Admission. Condition is Stable. Problem is new. Symptoms have improved. UTI on Admission? No. cp 16:50 16:49 08/29/2018 16:48 Hospitalization Ordered by Tyrone Mc DO for Inpatient cp Admission. Preliminary diagnosis is Cutaneous abscess of neck. Bed requested for Telemetry/MedSurg (Inpatient). Status is Inpatient Admission. Condition is Stable. Problem is new. Symptoms have improved. UTI on Admission? No. hb 17:33 16:50 08/29/2018 16:48 Hospitalization Ordered by Tyrone Mc DO for Inpatient tw2 Admission. Preliminary diagnosis is Right submandibular abscess. Bed requested for Telemetry/MedSurg (Inpatient). Status is Inpatient Admission. Condition is Stable. Problem is new. Symptoms have improved. UTI on Admission? No. cp
--- NOTE | 2018-08-29 16:55 | P.HP ---
Certification for Inpatient Patient admitted to: Inpatient With expected LOS: >2 Midnights Patient will require the following post-hospital care: Other Practitioner: I am a practitioner with admitting privileges, knowledge of patient current condition, hospital course, and medical plan of care. Services: Services provided to patient in accordance with Admission requirements found in Title 42 Section 412.3 of the Code of Federal Regulations Patient History Date of Service: 08/29/18 Primary Care Provider: none; ENT-Dr. Pardo Reason for admission: Failed outpatient antibiotic therapy History of Present Illness: 48-year-old male presents to the emergency room with worsening submandibular abscess and cellulitis to the right side. Patient with history of throat cancer. Patient had major surgery in June 2018 with complete laryngectomy and reconstruction. Patient had postop infection. Patient has been treated multiple times at [facility] and [facility]. Patient was seen by ENT surgery in [facility] early this week. He was given oral medication cefdinir. This did not improve. He saw his local ENT yesterday. She placed him on additional clindamycin. Symptoms have not improved. He has reported some fever and pain to the right neck region. Patient came to the ER for further evaluation. In the ER patient found to have right submandibular abscess. White count within normal range. Lactic acid and pro calcitonin unremarkable. Case was discussed with ENT. ENT recommends IV antibiotic therapy. Patient will be admitted for further treatment. When I saw the patient ER, he appeared comfortable. Allergies levofloxacin [From Levaquin] Allergy (Severe, Verified 02/14/18 10:49) Itching/Hives/Rash ampicillin Allergy (Verified 05/27/18 02:14) Itching/Hives/Rash iodine Allergy (Verified 02/14/18 10:49) Hives/Rash Home medications list reviewed: Yes Home Medications: Escitalopram [Lexapro*] 10 mg PO DAILY 05/27/18 Ciprofloxacin HCl 750 mg PO BID 06/26/18 Hydrocodone Bit/Acetaminophen [Hydrocodon-Acetaminophn 10-325] 1 tab PO Q6HP PRN 06/26/18 Levothyroxine Sodium [Levoxyl] 100 mcg PO DAILY 06/26/18 Metronidazole 500 mg PO TID 06/26/18 - Past Medical/Surgical History Diabetic: No -: Asthma -: Depression -: Throat cancer status post complete laryngectomy/reconstruction -: Recurrent postop infection -: Chronic pain -: Former tobacco use -: Surgical hypothyroidism -: Tracheostomy -: Appendectomy -: Complete laryngectomy with reconstruction -: knee surgery bilateral knees -: Thyroidectomy Psychosocial/ Personal History: Patient is . He has 3 children. - Family History Father -: Heart disease, Diabetes Notes: agent orange: immobile Mother -: Cancer Notes: breast ca - Social History Smoking Status: Former smoker Alcohol use: Yes CD- Drugs: No Caffeine use: Yes Place of Residence: Home Review of Systems General: Fever, As per HPI Eyes: Unremarkable ENT: As per HPI Respiratory: As per HPI Cardiovascular: Unremarkable Gastrointestinal: Unremarkable Genitourinary: Unremarkable Musculoskeletal: Neck Pain, As per HPI Integumentary: Unremarkable Neurological: Unremarkable Lymphatics: Unremarkable Physical Examination - Physical Exam General: Alert, In no apparent distress, Oriented x3, Cooperative HEENT: Atraumatic, Normocephalic, PERRLA, Mucous membr. moist/pink Neck: Other (Postsurgical changes noted to the neck. Patient with wind pipe in place. Pain to the right submandibular region. Area with erythema and fluctuance noted.) Respiratory: Clear to auscultation bilaterally, Normal air movement Cardiovascular: Normal pulses, Regular rate/rhythm Gastrointestinal: Normal bowel sounds, Soft and benign, Non-distended, No tenderness, No masses, No rebound, No guarding Musculoskeletal: No erythema, No tenderness, No warmth Integumentary: No cyanosis, Other (Has above) Neurological: Normal speech, Normal strength at 5/5 x4 extr, Normal tone, Abnormal affect (Patient very anxious) - Studies Laboratory Data (last 24 hrs) 08/29/18 13:30: PT 11.8, INR 1.00, APTT 32.1 08/29/18 13:30: WBC 9.4, Hgb 13.3 L, Hct 40.9, Plt Count 297 08/29/18 13:30: Sodium 143, Potassium 3.6, BUN 10, Creatinine 0.75, Glucose 105 , Total Bilirubin 0.4, AST 10 L, ALT 26, Alkaline Phosphatase 100 Assessment and Plan - Plan Impression: Right submandibular abscess and cellulitis, recurrent, complicated with history of complete laryngectomy and reconstruction Surgical hypothyroidism Depression Chronic pain Plan: Right submandibular abscess and cellulitis, recurrent, complicated with history of complete laryngectomy and reconstruction: Patient will be admitted for IV antibiotic treatment. Case discussed at length with ENT. Plan of care will include IV antibiotic therapy-cefepime and vancomycin. Cultures were obtained by ENT yesterday. Await culture findings. Patient likely will require long- term IV antibiotic therapy. Will order PICC line. Will also consult infectious disease for recommendation on duration of care. If symptoms worsen patient may require I and D. ENT prefers to treat with IV antibiotic therapy. Will provide medication for pain. Will make sure wind pipe is humidified. Will continue to monitor closely. Await further recommendations from ENT. Will discuss with geriatric social worker about plan of care as the patient will likely require home antibiotics. Surgical hypothyroidism: Will continue with his medication of levothyroxine 150 mcg Depression: Continue with his medication of Celexa 10 mg daily Chronic pain: Will continue with his medication of gabapentin 100 mg 3 times a day. Will provide tramadol and hydrocodone as needed. Discharge Plan: Home Plan to discharge in: Greater than 2 days - Advance Directives Does patient have a Living Will: No Does patient have a Durable POA for Healthcare: No - Code Status/Comfort Care Code Status Assessed: Yes (Patient is full code.) Time Spent Managing Pts Care (In Minutes): 55
[2018-08-29] MEDS ORDERED: ACETAMINOPHEN 500 MG TAB PO PRN (17:59)
[2018-08-29] MEDS ORDERED: ONDANSETRON 4 MG/2 ML VIAL IV PRN (17:59)
[2018-08-29] MEDS ORDERED: HYDROCODONE/APAP 7.5/325 MG TAB PO PRN (17:59)
[2018-08-29] MEDS: ENOXAPARIN 40 MG/0.4 ML SQ SCH (19:58)
[2018-08-29] MEDS: CEFEPIME/SWI 1gm 10 ML IV SCH (19:58)
[2018-08-29] MEDS ORDERED: GABAPENTIN 100 MG CAP PO SCH (21:00)
[2018-08-29] MEDS: KETOROLAC 30 MG/ML INJ IV PRN (21:02)
[2018-08-29] MEDS: ALBUTEROL 2.5 MG/3 ML NEB SOL NEB PRN (21:45)
[2018-08-29] MEDS: IPRATROPIUM BROM 0.5MG/2.5ML NEB PRN (21:45)
[2018-08-30] MEDS: IPRATROPIUM BROM 0.5MG/2.5ML NEB PRN ×2 (00:35→17:25)
[2018-08-30] MEDS: TRAMADOL HCL 50 MG TAB PO PRN ×2 (01:28→17:10)
[2018-08-30] MEDS: HYDROCODONE/APAP 10/325 TAB PO PRN ×3 (03:31→21:00)
[2018-08-30] MEDS: VANCOMYCIN 1.5 GM in NA CHLORIDE 0.9% 500 ML IVPB SCH ×2 (03:32→17:11)
[2018-08-30 05:48] LABS: Absolute Lymphocytes (CBC) 0.6 K/uL (0.7-4.9); Absolute Monocytes 0.5 K/uL (0.1-1.3); Absolute Neutrophil 14.5 K/uL (1.8-8.0); Basophils % 0.5 % (0-1.3); Hematocrit 36.8 % (39.6-49.0); MPV 8.7 fL (7.6-11.3); Monocytes % 3.2 % (3.3-12.3)
[2018-08-30 05:53] LABS: BUN Blood Urea Nitrogen 13 mg/dL (7-18); Bicarbonate 27 mmol/L (21-32); Glucose Level 131 mg/dL (74-106); Magnesium 2.2 mg/dL (1.8-2.4); Potassium 4.3 mmol/L (3.5-5.1); Sodium Level 140 mmol/L (136-145)
[2018-08-30] MEDS: LEVOTHYROXINE SOD 0.075 MG TAB PO SCH (05:59)
[2018-08-30] MEDS: KETOROLAC 30 MG/ML INJ IV PRN (06:00)
[2018-08-30] MEDS ORDERED: MORPHINE 2 MG/ML SYR IV PRN (07:40)
[2018-08-30 08:04] LABS: Blood Morphology Comment NOT SEEN (NOT SEEN); Platelet Estimate ADEQ
[2018-08-30 08:15] LABS: Urine Appearance CLEAR; Urine Bilirubin NEGATIVE (NEG); Urine Blood NEGATIVE (NEG); Urine Color YELLOW; Urine Glucose NEGATIVE (NEG); Urine Protein NEGATIVE (NEG); Urine Specific Gravity 1.015 (1.005-1.030); Urine Urobilinogen 0.2 mg/dL (0.2-1.0)
[2018-08-30] MEDS: GABAPENTIN 300 MG CAP PO SCH ×3 (08:40→21:01)
[2018-08-30] MEDS: ESCITALOPRAM 20 MG TAB PO SCH (08:40)
[2018-08-30] MEDS: ENOXAPARIN 40 MG/0.4 ML SQ SCH (08:41)
[2018-08-30] MEDS: CEFEPIME/SWI 1gm 10 ML IV SCH (08:41)
[2018-08-30] MEDS ORDERED: GABAPENTIN 100 MG CAP PO SCH (09:00)
[2018-08-30] MEDS ORDERED: CITALOPRAM 10 MG TABLET PO SCH (09:00)
[2018-08-30] MEDS ORDERED: CEFEPIME 1 GM/VIAL IV SCH (09:00)
[2018-08-30 09:33] LABS: Urine Microscopic Reflex NO UMIC
[2018-08-30] MEDS: MUPIROCIN 2% OINT 22GM TUBE TOP SCH ×2 (10:06→21:02)
--- NOTE | 2018-08-30 12:24 | P.PN ---
Subjective Date of Service: 08/30/18 Primary Care Provider: none; ENT-Dr. Pardo Chief Complaint: Failed outpatient antibiotic therapy Subjective: Other (Patient doing well. Pain noted to area of neck. Mild bloody discharge overnight.) Physical Examination - Vital Signs Temperature: 97.6 F Blood Pressure: 127/76 Pulse: 58 Respirations: 20 Pulse Ox (%): 95 - Physical Exam General: Alert, In no apparent distress, Cooperative Neck: Other (No significant change to right neck area. Pain noted) Respiratory: Clear to auscultation bilaterally, Normal air movement Cardiovascular: Normal pulses, Regular rate/rhythm Gastrointestinal: Normal bowel sounds, Soft and benign, Non-distended Neurological: Normal affect - Studies Laboratory Data (last 24 hrs) 08/29/18 13:30: PT 11.8, INR 1.00, APTT 32.1 08/29/18 13:30: WBC 9.4, Hgb 13.3 L, Hct 40.9, Plt Count 297 08/29/18 13:30: Sodium 143, Potassium 3.6, BUN 10, Creatinine 0.75, Glucose 105 , Total Bilirubin 0.4, AST 10 L, ALT 26, Alkaline Phosphatase 100 Medications List Reviewed: Yes Assessment & Plan Discharge Plan: Home Plan to discharge in: 48 Hours Physician Review Additional Text: Impression: Right submandibular abscess and cellulitis, recurrent, complicated with history of complete laryngectomy and reconstruction Surgical hypothyroidism Depression Chronic pain Plan: Right submandibular abscess and cellulitis, recurrent, complicated with history of complete laryngectomy and reconstruction: Continue with IV antibiotics. Case discussed with ENT yesterday. Will plan for IV antibiotic therapy as an outpatient. Will consult infectious disease for recommendation on IV antibiotic and duration. PICC line in place. Patient to be reassessed by ENT. If condition worsens patient may require surgical intervention. ENT prefers to treat with IV antibiotic therapy. Will provide medication for pain. Social work to be consulted to help with set up of IV antibiotic therapy as an outpatient. Surgical hypothyroidism: Will continue with his medication of levothyroxine 150 mcg Depression: Continue with his medication Chronic pain: Will increase gabapentin. Will provide medication for pain. Limit IV pain medication. This was discussed in detail with patient. Patient understands. Time Spent Managing Pts Care (In Minutes): 55
[2018-08-30] MEDS: MORPHINE 2 MG/ML SYR IV PRN ×3 (14:04→22:53)
[2018-08-30] MEDS: ALBUTEROL 2.5 MG/3 ML NEB SOL NEB PRN ×2 (17:25→23:42)
[2018-08-30] MEDS ORDERED: MELATONIN 3 MG TABLET PO ONE (23:31)
[2018-08-31 03:37] LABS: Absolute Lymphocytes (CBC) 0.8 K/uL (0.7-4.9); Absolute Monocytes 0.9 K/uL (0.1-1.3); Absolute Neutrophil 8.6 K/uL (1.8-8.0); Basophils % 0.3 % (0-1.3); Eosinophils % 0.7 % (0-4.4); Hematocrit 33.6 % (39.6-49.0); Lymphocytes % 7.6 % (15.3-44.8); MPV 8.8 fL (7.6-11.3)
[2018-08-31 03:43] LABS: BUN Blood Urea Nitrogen 10 mg/dL (7-18); Bicarbonate 29 mmol/L (21-32); Glucose Level 115 mg/dL (74-106); Magnesium 2.1 mg/dL (1.8-2.4); Potassium 3.8 mmol/L (3.5-5.1); Sodium Level 145 mmol/L (136-145)
[2018-08-31] MEDS: VANCOMYCIN 1.5 GM in NA CHLORIDE 0.9% 500 ML IVPB SCH ×2 (04:03→16:15)
[2018-08-31] MEDS: MORPHINE 2 MG/ML SYR IV PRN ×5 (04:05→22:58)
[2018-08-31] MEDS: LEVOTHYROXINE SOD 0.075 MG TAB PO SCH (06:36)
[2018-08-31] MEDS: HYDROCODONE/APAP 10/325 TAB PO PRN ×2 (06:37→20:03)
--- NOTE | 2018-08-31 08:09 | P.PN ---
Date of Service: 08/31/18 0800 Patient resting/sleeping comfortably. NAD. Right neck 04/04 in gauze packing changed. Continue POC. Will return in PM for re-packing
--- NOTE | 2018-08-31 08:48 | P.PN ---
Subjective Date of Service: 08/31/18 Primary Care Provider: none; ENT-Dr. Pardo Chief Complaint: Failed outpatient antibiotic therapy Subjective: Other (Pain appears control. Patient stable this time. ENT providing wound care twice daily.) Physical Examination - Vital Signs Temperature: 96.7 F Blood Pressure: 105/61 Pulse: 63 Respirations: 18 Pulse Ox (%): 95 - Physical Exam General: Alert, In no apparent distress, Oriented x3, Cooperative HEENT: Atraumatic Neck: Other (Packing in place. Windpipe appears stable.) Respiratory: Clear to auscultation bilaterally, Normal air movement Cardiovascular: Normal pulses, Regular rate/rhythm - Studies Microbiology Data (last 24 hrs): 08/29/18 13:36 Wound - Right Neck Gram Stain - Final Medications List Reviewed: Yes Assessment & Plan Discharge Plan: Home Plan to discharge in: 24 Hours (-48 hours) Physician Review Additional Text: Impression: Right submandibular abscess and cellulitis, recurrent, complicated with history of complete laryngectomy and reconstruction Surgical hypothyroidism Depression Chronic pain Plan: Right submandibular abscess and cellulitis, recurrent, complicated with history of complete laryngectomy and reconstruction: Patient continues on IV cefepime and vancomycin. Wound cultures pending at this time. Case discussed with the ENT yesterday. ENT continues to evaluate and pack wound twice daily. Will continue to pursue IV antibiotic therapy as an outpatient. Await recommendations by Infectious Disease on antibiotics/dosage/duration of therapy. PICC line in place. Will consult manager social responsibility to help arrange for outpatient IV antibiotic therapy. Will need to determine full well follow up on IV antibiotics. Patient requires PCP. Patient previously seen by Dr. Thompson , but does not plan to follow up with him. Pain medication adjusted. Will need to limit IV pain medication. I will turn the service over to Dr. Givens tomorrow. I will go over the plan of care with her. Surgical hypothyroidism: Will continue with his medication of levothyroxine 150 mcg Depression: Continue with his medication Chronic pain: Gabapentin increased yesterday. Pain medication adjusted for better control. Will need to limit IV pain medication as patient will likely discharge in the next 24-48 hr. This was discussed with patient. Patient understands. Time Spent Managing Pts Care (In Minutes): 55
[2018-08-31] MEDS: ESCITALOPRAM 20 MG TAB PO SCH (09:11)
[2018-08-31] MEDS: GABAPENTIN 300 MG CAP PO SCH ×3 (09:11→20:03)
[2018-08-31] MEDS: ENOXAPARIN 40 MG/0.4 ML SQ SCH (09:11)
[2018-08-31] MEDS: MUPIROCIN 2% OINT 22GM TUBE TOP SCH ×2 (09:11→20:04)
[2018-08-31] MEDS: CEFEPIME/SWI 1gm 10 ML IV SCH (09:12)
--- NOTE | 2018-08-31 11:14 | CON ---
Reason For Consultation: Neck abscess. Chief Complaint: Pus draining from the neck. History Of Present Illness: Mr. Pugh is a 48-year-old patient who is well known to me. He initially presented in June of 2017 to the emergency room with difficulty breathing. 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 He was treated with chemo radiation through July and August of 2017. Overall, he appeared to be doing well. In November of 2017, his tracheostomy tube was removed. He subsequently had continued pain and progressively more abnormal appearance of the larynx. He was taken to the operating room in January for biopsies, which showed chronic inflammation, but no clear dysplasia or residual cancer. Over the ensuing 4 months, his symptoms of pain and worsening hoarseness progressed where despite prior negative biopsy there is a strong clinical concern for recurrence versus persistence of his cancer. He continued to smoke at that time. He was referred to Dr. Cameron in association with [facility] in [place] for total laryngectomy. He underwent total laryngectomy, total thyroidectomy with construction with an anterolateral thigh free flap on July 14, 2018. He was subsequently discharged from the hospital. Over the ensuing 6 weeks, he has been in and out of multiple facilities including at [facility] multiple ER visits to [facility] in [place] and hospitalization for approximately 48 hours at [facility] in [place] for infection of the right neck. He notes the purulent drainage from the right neck has been intermittent. It will drain for several days. He will be treated with IV and/or p.o. antibiotics. The drainage will improve and then restart again several days later. It is unclear to me if Dr. Cameron has performed a formal incision and drainage, but is well aware of the patient's overall condition. I reviewed records earlier this week from [facility] indicating the patient underwent a barium swallow around August 17 or , which demonstrated no evidence of a salivary leak in terms of his recent surgery. He has also undergone multiple CT scans of the neck in relation to this problem including a CT scan performed in the emergency room on 08/29/2018. The patient was seen in my clinic on August 28 and was noted to have kpokptul-[id number] erythema of the right neck and intact free flap and grossly purulent drainage from a small pinpoint opening superior and posterior to the skin flap likely along the prior incision line. The area was probed and was felt to be approximately a centimeter deep. The sample of pus was sent to [facility] for PCR evaluation of bacterial organisms. The patient presented on the to the emergency room. Between his visit to my clinic on the and his presentation to the emergency room, I was reviewing records from [facility] and consulting with his head and neck surgeon at [facility]. Discussion with them, it sounds like this is a chronic and ongoing problem, which has been difficult to treat due to multiple cultures showing no growth or mild amounts of skin maximo. Past Medical History: Depression, anxiety, surgical and radiation induced hypothyroidism, chronic tobacco use, and nicotine dependence. Past Surgical History: Appendectomy; knee surgery; direct laryngoscopy with biopsy in June 2013 with tracheostomy, direct laryngoscopy with biopsy 02/17/2018, direct laryngoscopy with tracheostomy in May [address] [facility] in [facility], chest tube place for complication of left pneumothorax; total laryngectomy; total thyroidectomy; and free flap July 14, 2018. Family History: Positive for asthma and cancer in his mother. His father had diabetes, hearing problems, and myocardial infarction. Social History: Positive for alcohol and tobacco use with multiple attempts to quit tobacco in the past. Physical Examination: The patient is in no acute distress. His face is symmetric. His oral cavity, ears, and nasal cavity are unremarkable. His neck is consistent with a total laryngectomy with a well-healed laryngostomy. There is mild crusting around the stoma and mild crusting and severe irritation of the visible tracheal mucosa. The right neck shows an approximately 3 x 5 cm skin paddle consistent with the anterolateral thigh free flap. Overall, the skin of the neck is significantly improved in terms of erythema compared to exam on 08/28/2018. With pressure, there is a zero purulence degree of drainage from a 1 to 2 mm opening on the neck. The overall degree of drainage is improved given the patient's recent IV antibiotic use. Other Data: The patient's white count in the emergency room was 9.4. This morning, the white count was 15.8 with a left shift. Coagulation studies were normal. CT scan performed in the emergency room demonstrates a triangular rim of enhancing poorly defined fluid collection in the right submandibular region inferior to the level of the right submandibular gland measuring approximately 1.4 x 2.5 x 1.6 cm with some small air bubbles, this is consistent with an abscess with sinus drainage to the skin or fistulization to the skin surface. There are numerous surgical clips and significant surgical changes including total laryngectomy with a free flap. Overall, this is felt to represent a superficial right anterior soft tissue neck abscess. Assessment: Superficial neck abscess in the postsurgical state status post laryngectomy approximately 6 weeks ago. Plan: I discussed with the patient his findings and ongoing history over the last 6 weeks. Given the small size and existing spontaneous drainage with risk of poor healing in a previously irradiated field, my recommendation is that: 1. Wait for the culture results of the specimen, which was collected in my clinic on the . 2. Plan for PICC line placement and continued IV antibiotics pending culture results. 3. Consideration for consultation from Infectious Disease regarding length of IV antibiotic therapy. 4. Local wound care. I suspect this is a small chronic abscess over the last several weeks, which will improve and heal over without complete healing of the deep aspects and later as the pressure builds the fistula reopens and begins to drain. I discussed with the patient regarding wound care and opted for packing. The wound cavity was packed by me with an approximately 3-inch piece of quarter-inch plain packing gauze using a back end of a cotton-tipped applicator. This was moderately well tolerated. We will continue IV antibiotics pending clinical response and input from ID. At this time, acute surgical intervention is indicated. 5. I also discussed with the nursing team regarding care of the patient's laryngostomy. The trachea is quite dry. He is receiving Atrovent and albuterol nebulizers for presumed COPD, but would benefit from aggressive humidification. A recommendation is made for saline nebulized treatments in order to improve humidification. He would benefit from application of HME to the laryngostomy, but these materials are not available locally and I do not have much experience in regard to ordering or obtaining these materials. I will need to coordinate with Head and Neck surgeon regarding best application of laryngectomy supplies, but this can be done on an outpatient basis. I will continue to follow the patient closely along with you in regard to clinical response. FIGUEROA/LILLIAN Voice ID: [id number] Report ID: [id number] JODEE
[2018-08-31 17:11] VITALS: BMI 3886.0
--- NOTE | 2018-08-31 21:39 | P.PN ---
Date of Service: 08/31/182129 Patient without significant complaint this evening. AF. VSS NAD. Right neck 04/04 in gauze packing changed. Overall, the erythema of the neck is much improved. There is mild to moderate amount of blood stained purulence when the packing is removed Continue POC with pending wound culture and PCR testing (outpatient clinic), Iv Abx, PICC in place. Will plan to change packing again in AM and teach spouse wound care Saturday evening.
[2018-08-31] MEDS ORDERED: MELATONIN 3 MG TABLET PO ONE ×2 (22:30→23:31)
[2018-09-01] MEDS: MORPHINE 2 MG/ML SYR IV PRN ×5 (04:08→21:52)
[2018-09-01] MEDS: VANCOMYCIN 1.5 GM in NA CHLORIDE 0.9% 500 ML IVPB SCH ×2 (04:08→16:39)
[2018-09-01 04:54] LABS: Absolute Lymphocytes (CBC) 0.8 K/uL (0.7-4.9); Absolute Monocytes 0.9 K/uL (0.1-1.3); Absolute Neutrophil 5.8 K/uL (1.8-8.0); Basophils % 0.6 % (0-1.3); Eosinophils % 2.5 % (0-4.4); MPV 8.5 fL (7.6-11.3); Monocytes % 11.9 % (3.3-12.3); RBC Red Blood Cell Count 3.77 M/uL (4.33-5.43)
[2018-09-01 05:06] LABS: BUN Blood Urea Nitrogen 10 mg/dL (7-18); Bicarbonate 29 mmol/L (21-32); Glucose Level 89 mg/dL (74-106); Magnesium 2.1 mg/dL (1.8-2.4); Potassium 3.8 mmol/L (3.5-5.1); Sodium Level 144 mmol/L (136-145)
[2018-09-01] MEDS: LEVOTHYROXINE SOD 0.075 MG TAB PO SCH (06:25)
[2018-09-01] MEDS: ESCITALOPRAM 20 MG TAB PO SCH (08:29)
[2018-09-01] MEDS: ENOXAPARIN 40 MG/0.4 ML SQ SCH (08:29)
[2018-09-01] MEDS: GABAPENTIN 300 MG CAP PO SCH ×3 (08:29→21:01)
[2018-09-01] MEDS: CEFEPIME/SWI 1gm 10 ML IV SCH (08:29)
[2018-09-01] MEDS: MUPIROCIN 2% OINT 22GM TUBE TOP SCH ×2 (08:30→21:05)
--- NOTE | 2018-09-01 11:43 | RAD REPORT ---
EXAM DESCRIPTION: Chest Single View CLINICAL HISTORY: 8 years Male, S/P PICC insertion COMPARISON: Chest radiograph from the same day FINDINGS: Placement of right upper extremity PICC terminating in the distal SVC. No focal lung consolidation. Mild prominence of interstitium. No pleural effusion. No pneumothorax. Cardiac silhouette is unremarkable. No acute osseous abnormality. IMPRESSION: Appropriately placed right upper extremity PICC No acute cardiopulmonary disease. Electronically signed by: Miko Boland DO 08/30/2018 1:32 AM CDT Due to temporary technical issues with the PACS/Fluency reporting system, reports are being signed by the in house radiologist as a courtesy to ensure prompt reporting. The interpreting radiologist is f ully responsible for the content of the report.
--- NOTE | 2018-09-01 17:12 | P.PN ---
Subjective Date of Service: 09/01/18 Primary Care Provider: none; ENT-Dr. Pardo Chief Complaint: Failed outpatient antibiotic therapy Patient seen and examined at bedside with RN. Chart reviewed. Case discussed with the ENT. This morning patient feels much better than before. No complaints to offer overnight. Review of Systems 10-point ROS is otherwise unremarkable Physical Examination - Vital Signs Temperature: 98.3 F Blood Pressure: 110/70 Pulse: 77 Respirations: 16 Pulse Ox (%): 98 - Physical Exam General: Alert, In no apparent distress HEENT: Other (Right-sided submandibular area with packing. Serosanguineous discharge noted.) Neck: Supple, JVD not distended Respiratory: Clear to auscultation bilaterally, Normal air movement Cardiovascular: Regular rate/rhythm, Normal S1 S2 Gastrointestinal: Normal bowel sounds, No tenderness Musculoskeletal: No tenderness Integumentary: No rashes Neurological: Normal tone, Normal affect Lymphatics: No axilla or inguinal lymphadenopathy - Studies Microbiology Data (last 24 hrs): 08/29/18 13:36 Wound - Right Neck Gram Stain - Final 08/29/18 13:36 Wound - Right Neck Culture & Sensitivity - Final Medications List Reviewed: Yes Assessment And Plan - Current Problems (Diagnosis) (1) Submandibular abscess Current Visit: Yes Status: Acute Plan: Recurrent Submandibular abscess with failed outpatient therapy for total of 6 weeks -ENT consulted. Appreciated recommendations at this time -IV cefepime and vancomycin at this time -wound culture pending at this time -wound care with the ENT at this time -PICC line in place -patient will most likely need long-term IV antibiotics. -will need to be set up to come back to the ER for outpatient surgery to receive his IV antibiotics. (2) Laryngeal neoplasm Onset Date: 10/14/17 Current Visit: No Status: Chronic (3) COPD (chronic obstructive pulmonary disease) Onset Date: 10/14/17 Current Visit: No Status: Chronic Qualifiers: COPD type: chronic bronchitis Chronic bronchitis type: simple Qualified Code(s): J41.0 - Simple chronic bronchitis (4) History of depression Onset Date: 10/14/17 Current Visit: No Status: Chronic (5) Tobacco abuse Onset Date: 10/14/17 Current Visit: No Status: Chronic - Plan Pending clinical improvement at this time Discharge Plan: Other Plan to discharge in: 48 Hours - Code Status/Comfort Care Code Status Assessed: Yes Critical Care: No
--- NOTE | 2018-09-01 19:33 | CON ---
History Of Present Illness: This is a 48-year-old male, I was consulted for right neck abscess statu s post I and D. The patient is currently being treated with IV antibiotic including cefepime and van comycin. Surgery was performed by ENT specialist who has put iodoform gauze into the neck wound. Th e patient also has surgical intervention done to his larynx and has a trach in place. The patient de nies any headache, nausea, vomiting, chest pain, abdominal pain, constipation, or diarrhea. Tobacco positive. Significant history of throat cancer. The patient had major surgery done in 2019 with lar yngectomy and reconstruction, came into the emergency room with right submandibular abscess. Past Medical History: Asthma, depression, throat cancer, recurrent postop infection, chronic pain, f ormer tobacco use, surgical hypothyroidism, tracheostomy, appendectomy, complete laryngectomy with re construction, knee surgery, bilateral knee surgery, thyroidectomy. Social History: Tobacco positive, alcohol negative. Family History: Noncontributory. Medications: Vancomycin and cefepime. See [facility] for other medication. Allergies: LEVAQUIN, PENICILLIN, IODINE. Review of Systems: A 10-point review was performed. Physical Examination: General: This is a 48-year-old male, lying in bed, not in any acute cardiopulmonary distress. Vital Signs: Temperature 97, pulse 69, respirations 16, blood pressure 136/73. HEENT: Limited examination neck and submandibular area shows small opening with Iodoform gauze in pl daphne. On the right side, trach stoma also noted. Lungs: Basal crackles. Heart: S1, S2 regular. Abdomen: Soft, nontender. Bowel sounds present. Extremities: No edema. Laboratory Data: Shows WBC 7.7 down from 15.8, platelets are 245, hemoglobin 11.2. Chemistry shows sodium 144, potassium 3.8, chloride 108, bicarb 29, BUN 10, creatinine 0.5, glucose 89. Micro data, blood cultures no growth. Assessment And Plan: Right submandibular abscess in patient with throat cancer with recent laryngect temo and reconstruction. We will recommend antibiotic for at least 2 to 3 weeks at this time dependin g on how patient responds. Continue IV antibiotic full course. We will follow the patient closely. Thank you for consult. ROCHELLE/LILLIAN Voice ID: [id number] Report ID: [id number]
--- NOTE | 2018-09-01 20:02 | P.PN ---
Date of Service: 09/01/181999 Patient without significant complaint this evening. The wound dressing was changed this morning and overall patient is doing better. Patient seen by ID and recc for 2-3 weeks IV Abx are noted. 6 Mirtha tube found in ENT clinic and given to patient to use PRN. AF. VSS NAD. Right neck 1/4 in gauze packing changed again this evening with patient in front of mirror. Family not at bedside for teaching. Overall, the erythema of the neck is much resolving There is mild purulence when the packing is removed but I can no longer express pus with pressure on the tissues after removal of packing. The tracheal mucosa is dry and mildly crusted but the appearance of the tracheal mucosa is less inflammed. Continue POC with pending wound culture and PCR testing (outpatient clinic), Iv Abx, PICC in place. Cultures from still pending. Cultures taken while in ER show no growth. If no results on culture by tomorrow, will defer to ID in regards to Abx selection and duration. Will plan to continue wound care with packing at home after discharge. Patient/family will require teaching.
[2018-09-01] MEDS: ALBUTEROL 2.5 MG/3 ML NEB SOL NEB PRN (21:37)
[2018-09-01 21:41] VITALS: O2SAT 97
[2018-09-01] MEDS: HYDROCODONE/APAP 10/325 TAB PO PRN (23:11)
[2018-09-01] MEDS ORDERED: TEMAZEPAM 15 MG CAP PO PRN (23:15)
[2018-09-02 03:33] LABS: Absolute Lymphocytes (CBC) 0.7 K/uL (0.7-4.9); Absolute Monocytes 0.8 K/uL (0.1-1.3); Absolute Neutrophil 5.4 K/uL (1.8-8.0); Basophils % 0.5 % (0-1.3); Eosinophils % 2.7 % (0-4.4); Hematocrit 35.5 % (39.6-49.0); Lymphocytes % 9.2 % (15.3-44.8); MPV 8.4 fL (7.6-11.3); Monocytes % 11.2 % (3.3-12.3); RBC Red Blood Cell Count 3.98 M/uL (4.33-5.43)
[2018-09-02 03:46] LABS: BUN Blood Urea Nitrogen 10 mg/dL (7-18); Bicarbonate 32 mmol/L (21-32); Glucose Level 117 mg/dL (74-106); Magnesium 2.3 mg/dL (1.8-2.4); Potassium 3.5 mmol/L (3.5-5.1); Sodium Level 144 mmol/L (136-145)
[2018-09-02] MEDS: VANCOMYCIN 1.5 GM in NA CHLORIDE 0.9% 500 ML IVPB SCH (04:23)
[2018-09-02] MEDS: LEVOTHYROXINE SOD 0.075 MG TAB PO SCH (06:12)
[2018-09-02] MEDS: ESCITALOPRAM 20 MG TAB PO SCH (08:02)
[2018-09-02] MEDS: GABAPENTIN 300 MG CAP PO SCH (08:02)
[2018-09-02] MEDS: ENOXAPARIN 40 MG/0.4 ML SQ SCH (08:03)
[2018-09-02] MEDS: MORPHINE 2 MG/ML SYR IV PRN ×2 (08:05→12:21)
[2018-09-02] MEDS: MUPIROCIN 2% OINT 22GM TUBE TOP SCH (08:07)
[2018-09-02 08:47] VITALS: TEMP 97.6
[2018-09-02] MEDS: CEFEPIME/SWI 1gm 10 ML IV SCH (10:13)
[2018-09-02 12:20] VITALS: BP 125/74
--- NOTE | 2018-09-02 17:30 | P.PN ---
Date of Service: 09/02/18 1330 Patient without significant complaint this morning. AF. VSS NAD. Right neck 1/4 in gauze packing changed again this morning. There is mild purulence when the packing is removed but I can no longer express pus with pressure on the tissues after removal of packing. The tracheal mucosa is dry and mildly crusted but the appearance of the tracheal mucosa is less inflammed. I spoke with Dr Cameron ([facility]) regarding wound care and he is ammenable to plan for 2-4 wks IV Abx and continued would packing. I do not have the pathologist report from July 14 TL but requested the information be faxed to my clinic. Continue POC with pending wound culture and PCR testing (outpatient clinic), Iv Abx, PICC in place. Ok with d/c with outpatient Abx per ID and BID wound packing by family at home. I will not be available during clinic hours this week due to un-expected jury duty but will continue to follow the patient as I am able. The patient will need to coordinate with [facility] for TL support including xin tube with HME to improve humidification of the trachea and lower respiratory tract. I will try to help arrange this as on outpatient.
--- NOTE | 2018-09-02 18:27 | P.DS ---
Admission Date: 08/29/18 Discharge Date: 09/02/18 Primary Care Provider: none; ENT-Dr. Pardo Disposition: ROUTINE DISCHARGE Discharge Condition: FAIR Reason for Admission: Failed outpatient antibiotic therapy Consultations: ENT Procedures: Incision and drainage - Problems (1) Submandibular abscess Status: Acute (2) Laryngeal neoplasm Onset Date: 10/14/17 Status: Chronic (3) COPD (chronic obstructive pulmonary disease) Onset Date: 10/14/17 Status: Chronic Qualifiers: COPD type: chronic bronchitis Chronic bronchitis type: simple Qualified Code(s): J41.0 - Simple chronic bronchitis (4) History of depression Onset Date: 10/14/17 Status: Chronic (5) Tobacco abuse Onset Date: 10/14/17 Status: Chronic Brief History of Present Illness: 48-year-old male presents to the emergency room with worsening submandibular abscess and cellulitis to the right side. Patient with history of throat cancer. Patient had major surgery in June 2018 with complete laryngectomy and reconstruction. Patient had postop infection. Patient has been treated multiple times at [facility]. Patient was seen by ENT surgery in [facility] early this week. He was given oral medication cefdinir. This did not improve. He saw his local ENT yesterday. She placed him on additional clindamycin. Symptoms have not improved. He has reported some fever and pain to the right neck region. Patient came to the ER for further evaluation. In the ER patient found to have right submandibular abscess. White count within normal range. Lactic acid and pro calcitonin unremarkable. Case was discussed with ENT. ENT recommends IV antibiotic therapy. Patient will be admitted for further treatment. Hospital Course: Overall during the hospital stay patient remained stable Patient was initially admitted to the hospital for submandibular abscess failed outpatient therapy. Patient was started on IV antibiotics here in the hospital. ENT was consulted who performed incision and drainage to the affected area. Patient had wound cultures done along with blood cultures at that time. Wound culture and blood culture of the state her negative for growth. Given the history of laryngotomy and failed outpatient therapy for total of 6 weeks. The decision was made to continue patient on IV antibiotics for total of 2 weeks. Given the high risk for multi-drug resistant Staph aureus and anaerobic bacteria patient was placed on IV vancomycin and clindamycin. For patient's wound care he was taught wound care here in the hospital by ENT and nursing staff. When patient was doing well overall after the surgery MRN wound care and IV antibiotics were set up outpatient patient was discharged home under stable condition. Patient will be continuing on IV vancomycin and clindamycin oral. Patient will receive IV vancomycin here in the ER and the outpatient center. Patient will also get BMP every 5 days which will be followed up by ENT patient also will have a vanc trough which also will be followed by ENT. Patient has seen Dr. Thompson in the past however refuses to see him now and states that he will not go back to him at any cost. Vital Signs/Physical Exam: Temp Pulse Resp BP Pulse Ox 97.6 F 63 15 125/74 98 09/02/18 12:00 09/02/18 12:00 09/02/18 12:00 09/02/18 12:00 09/02/18 12:00 General: Alert, In no apparent distress HEENT: Atraumatic, PERRLA, EOMI Neck: Other (Right-sided mandibular area with packing no drainage noted) Respiratory: Clear to auscultation bilaterally, Normal air movement Cardiovascular: Regular rate/rhythm, Normal S1 S2 Gastrointestinal: Normal bowel sounds, No tenderness Musculoskeletal: No tenderness Integumentary: No rashes Neurological: Normal speech, Normal tone, Normal affect Lymphatics: No axilla or inguinal lymphadenopathy Laboratory Data at Discharge: WBC 7.1 K/uL (4.3-10.9) 09/02/18 03:20 Hgb 12.2 g/dL (13.6-17.9) L 09/02/18 03:20 Hct 35.5 % (39.6-49.0) L 09/02/18 03:20 Plt Count 228 K/uL (152-406) 09/02/18 03:20 PT 11.8 SECONDS (9.5-12.5) 08/29/18 13:30 INR 1.00 08/29/18 13:30 APTT 32.1 SECONDS (24.3-36.9) 08/29/18 13:30 Sodium 144 mmol/L (136-145) 09/02/18 03:20 Potassium 3.5 mmol/L (3.5-5.1) 09/02/18 03:20 BUN 10 mg/dL (7-18) 09/02/18 03:20 Creatinine 0.68 mg/dL (0.55-1.3) 09/02/18 03:20 Glucose 117 mg/dL (74-106) H 09/02/18 03:20 Magnesium 2.3 mg/dL (1.8-2.4) 09/02/18 03:20 Total Bilirubin 0.4 mg/dL (0.2-1.0) 08/29/18 13:30 AST 10 U/L (15-37) L 08/29/18 13:30 ALT 26 U/L (12-78) 08/29/18 13:30 Alkaline Phosphatase 100 U/L (45-117) 08/29/18 13:30 Home Medications: Escitalopram [Lexapro*] 10 mg PO DAILY 05/27/18 Levothyroxine Sodium [Levoxyl] 150 mcg PO DAILY 06/26/18 Gabapentin [Neurontin*] 100 mg PO TID 08/29/18 Clindamycin HCl 300 mg PO Q8H #42 capsule 09/02/18 Vancomycin/0.9 % Sod Chloride [Vanco 2 Gram/500 ml-0.9% NaCl] 2 gm IV DAILY #14 plast..bag 09/02/18 traMADol HCL [Ultram*] 50 mg PO TID PRN #30 tab 09/02/18 New Medications: Clindamycin HCl 300 mg PO Q8H #42 capsule traMADol HCL [Ultram*] 50 mg PO TID PRN #30 tab PRN Reason: Pain Scale 2-4 (Mild) Vancomycin/0.9 % Sod Chloride [Vanco 2 Gram/500 ml-0.9% NaCl] 2 gm IV DAILY #14 plast..bag Diet: As tolerated Activity: Ad get Followup: Chetan Hills MD [ACTIVE - CAN ADMIT] - 1-2 Weeks Keya Pardo MD [ACTIVE - CAN ADMIT] - 1-2 Weeks
== END 2018-09-02 13:27 | disposition home or self-care (01) | DRG 863 ==
LOC: ER 12:23 → ERHOLD 16:36 → 2ND 17:07
PROVIDERS: ADMIT Family Medicine; ATTEND Family Medicine
PROC: 02HV33Z Insertion of Infusion Device into Superior Vena Cava, Percutaneous Approach (ICD-10-PCS; principal; 2018-08-29)
DX: T81.40XA Infection following a procedure, unspecified, initial encounter (principal); K12.2 Cellulitis and abscess of mouth; E89.0 Postprocedural hypothyroidism; F32.9 Major depressive disorder, single episode, unspecified; J44.9 Chronic obstructive pulmonary disease, unspecified; G89.29 Other chronic pain; Z87.891 Personal history of nicotine dependence; Z85.21 Personal history of malignant neoplasm of larynx; Y83.6 Removal of other organ (partial) (total) as the cause of abnormal reaction of the patient, or of later complication, without mention of misadventure at the time of the procedure
CPT/HCPCS: 36415; 70491; 71045; 80048; 80076; 80202; 81003; 83605; 83735; 84145; 85025; 85610; 85730; 87040; 87070; 87205; 94640; 96365; 96375; 99285; J0692; J1650; J2270; J2405; J2930; Q9967

== ENCOUNTER 2018-09-07 15:50 | Emergency (ER) | payer OTHER, SELFPAY ==
--- OUTSIDE RECORDS SUMMARY | 2018-09-07 15:54 | XMS REPORT | Clinical Summary ---
:1970 Author Organization [facility] Address [address] [place] [address] Care Team Providers Name Role Phone Pcp, [...] 1 tablet (150 mcg 30 tablet 0 07/25/19 Active (SYNTHROID, total) by G-tube 9 LEVOTHROID) 150 MCG route Every tablet morning on an empty stomach. predniSONE Take 20 mg by 0 06/22/19 [...] (GLYCOLAX) 17 gram mouth daily as 9 19 packet needed for up to 14 days For constipation while taking pain meds. HYDROcodone-acetami Take 1 tablet by 30 tablet 0 06/22/19 Discontinued nophen (NORCO mouth every 6 9 19 7.5-325) 7.5-325 mg (six) hours as per tablet needed for Pain. Max Daily Amount: 4 tablets amoxicillin-clavula Take 1 tablet by 6 tablet 0 06/22/19 Discontinued vick (AUGMENTIN) mouth 2 (two) 9 500-125 mg per times daily for 3 tablet days. predniSONE Take 3 tablets 9 tablet 0 06/22/19 Discontinued (DELTASONE) 5 MG (15 mg total) by 9 19 tablet mouth [...] (MONODOX) 100 MG (100 mg total) by 12 18 capsule mouth every 12 (twelve) hours for 7 days. metroNIDAZOLE Take 1 tablet 21 tablet 0 06/29/19 (FLAGYL) 500 MG (500 mg total) by 12 18 tablet mouth every 8 (eight) hours for [...] Discontinued (FLAGYL) 50 mg/mL mg total) by 19 liquid mouth every 8 (eight) hours [...] Discontinued (BACTROBAN) 2 % topically 2 (two) 12 18 ointment times daily for 7 days To inside of right neck wound. sulfamethoxazole-tr Take 1 tablet (80 28 tablet 0 08/30/19 imethoprim mg of 9 19 (BACTRIM,SEPTRA) trimethoprim 400-80 mg per total) by mouth 2 tablet (two) times daily for 14 days. mupirocin Apply 1 g 22 g 0 08/30/19 (BACTROBAN) 2 % topically 2 (two) 9 19 ointment times daily for 14 days To [...] Dx); 07/24/2018 Katty Wright MD Tracheostomy care ([facility]); Guilherme Fraire History of laryngeal cancer; MD Vinnie Presence of tracheostomy ([facility]); Acute postoperative pain; S/P flap graft; S/P [...] Pre-Admission Resource, Oqmt Testing Preadmit Phone after 09/06/2017 Social History Tobacco Use Types Packs/Day Years [...] HEMOGLOBIN Routine 06/09/2018 12:28 PM CDT after 09/06/2017 Results Creatinine (08/15/2018 7:02 AM CDT) Creatinine 0.63 0.57 - 1.25 mg/dL [facility] EGFR 136Comment: ESTIMATED GFR IS mL/min/1.73 sq m [facility] NOT ACCURATE [facility] CLEARANCE IN PREDICTING GLOMERULAR FILTRATION RATE. ESTIMATED GFR IS NOT APPLICABLE FOR DIALYSIS PATIENTS. Specimen Blood Performing Organization Address City/[facility]/Zipcode Phone Number [address] [address] CENTER Vancomycin level, trough (08/13/2018 10:59 PM CDT)Only the most recent of3 resultswithin the time period is included. Vancomycin Tr 7.5 (L) 10.0 - 20.0 ug/mL [facility] Specimen Blood Performing Organization Address City/[facility]/Zipcode Phone Number [address] [address] [facility] esoph swallow funct with cine video (08/12/2018 3:30 PM CDT)Only the most recent of2 resultswithin the time period is included. Specimen Narrative Performed At FINAL REPORT [facility] Esophagram. HISTORY: Status post laryngectomy. COMPARISON [...] MD Report Verified Date/Time:08/12/2018 18:19:29 Reading Location: [facility] C0[facility] Ortho Consult Reading Room Procedure Note Interface, [...] Report Verified Date/Time: 08/12/2018 18:19:29 Reading Location: [facility] [id number] Ortho Consult Reading Room Performing Organization Address City/State/Zipcode Phone Number [facility] CBC with platelet count + automated diff (08/12/2018 3:58 AM CDT)Only the most recent of27 resultswithin the time period is included. WBC 7.1 3.5 - 10.5 K/L [facility] RBC 3.77 (L) 4.63 - 6.08 M/L [facility] Hemoglobin 10.9 (L) 13.7 - 17.5 GM/DL [facility] Hematocrit 35.7 (L) 40.1 - 51.0 % [facility] MCV 94.7 (H) 79.0 - 92.2 fL [facility] MCH 28.9 25.7 - 32.2 pg [facility] MCHC 30.5 (L) 32.3 - 36.5 GM/DL [facility] RDW 14.6 (H) 11.6 - 14.4 % [facility] Platelets 318 150 - 450 K/CU MM [facility] MPV 9.8 9.4 - 12.4 fL [facility] nRBC 0 0 - 0 /100 WBC [facility] % Neutros 72 % [facility] % Lymphs 10 % [facility] % Monos 12 % [facility] % Eos 4 % [facility] [place] % Baso 1 % [facility] # Neutros 5.08 1.78 - 5.38 K/L [facility] # Lymphs 0.68 (L) 1.32 - 3.57 K/L [facility] # Monos 0.86 (H) 0.30 - 0.82 K/L [facility] # Eos 0.29 0.04 - 0.54 K/L [facility] # Baso 0.04 0.01 - 0.08 K/L [facility] Immature Granulocytes-Relative 1 0 - 1 % [facility] Specimen Blood Performing Organization Address City/[facility] Cent[facility] Phone Number [facility] [address] [place] [address] [phone] [place] TSH/Free T4 If Indicated (08/11/2018 4:59 PM CDT)Only the most recent of4 resultswithin the time period is included. TSH 0.75 0.35 - 4.94 uIU/mL [facility] Specimen Blood Performing Organization Address City/[facility] Cent[facility]ode Phone Number [facility] [address] [place] [phone] [place] Wound culture + gram stain (08/11/2018 4:01 PM CDT) Result No growth [facility] Gram Stain Result 2+ WBCs [facility] Gram Stain Result 1+ gram positive cocci in [facility] Gram Stain Result <1+ gram variable rods [facility] Specimen Wound Performing Organization Address [facility] Phone Number [facility] [address] [place] [address] [phone] [place] INTRAOPERATIVE PATH REPORT - SCAN (08/06/2018 5:45 PM CDT)Only the most recent of4 resultswithin the time period is included. Narrative Performed At RHYTHM STRIP - SCAN (07/28/2018 10:30 AM CDT)Only the most recent of3 resultswithin the time period is included. Narrative Performed At Manual Differential (07/24/2018 4:17 AM CDT)Only the most recent of13 resultswithin the time period is included. % Neutros 80 % [facility] % Lymphs 2 % [facility] % Monos 15 % [facility] % Eos 3 % [facility] # Neutros 8.64 (H) 1.78 - 5.38 K/ul [facility] # Lymphs 0.22 (L) 1.32 - 3.57 K/ul [facility] # Monos 1.62 (H) 0.30 - 0.82 K/uL [facility] # Eos 0.32 0.04 - 0.54 K/uL [facility] Total Counted 100 [facility] WBC Morphology Normal [facility] Large Platelet Present [facility] Polychromasia 1+ few [facility] Artifact Present [facility] Platelet Conc Increased [facility] Specimen Blood Narrative Performed At Received comment: [facility] User comments: Slide comments: Performing Organization Address City/[facility] Centercode Phone Number [address] [address] [phone] CENTER Phosphorus (07/24/2018 4:17 AM CDT)Only the most recent of18 resultswithin the time period is included. Phosphorus 4.8 (H) 2.3 - 4.7 mg/dL [facility] Specimen Blood Performing Organization Address [facility] Cent[facility]opa Phone Number [address] [address] [phone] CENTER Magnesium (07/24/2018 4:17 AM CDT)Only the most recent of21 resultswithin the time period is included. Magnesium 2.1 1.6 - 2.6 mg/dL [facility] Specimen Blood Performing Organization Address City/[facility] Cent[facility]ode Phone Number [address] [address] [phone] CENTER Basic Metabolic Panel (07/24/2018 4:17 AM CDT)Only the most recent of24 resultswithin the time period is included. Sodium 140 136 - 145 meq/L [facility] Potassium 4.0 3.5 - 5.1 meq/L [facility] Chloride 99 98 - 107 meq/L [facility] CO2 30 (H) 22 - 29 meq/L [facility] BUN 8 7 - 21 mg/dL [facility] Creatinine 0.71 0.57 - 1.25 mg/dL [facility] Glucose 90 70 - 105 mg/dL [facility] Calcium 8.8 8.4 - 10.2 mg/dL [facility] EGFR 118Comment: ESTIMATED GFR IS mL/min/1.73 sq m [facility] NOT ACCURATE [facility] CLEARANCE IN PREDICTING GLOMERULAR FILTRATION RATE. ESTIMATED GFR IS NOT APPLICABLE FOR DIALYSIS PATIENTS. Specimen Blood Performing Organization Address [facility] Centercode Phone Number [address] [address] [phone] [place] POC-Glucose meter (07/22/2018 5:52 PM CDT)Only the most recent of28 resultswithin the time period is included. POC-Glucose Meter 105Comment: TESTED AT 70 - 110 mg/dL [address] [address] Specimen Blood Performing Organization Address [facility] Centercode Phone Number [address] [address] [place] Sputum Culture + Gram Stain (07/20/2018 12:20 PM CDT)Only the most recent of3 resultswithin the time period is included. Result <1+ Normal respiratory maximo [facility] Gram Stain Result <1+ White blood cells seen [facility] Gram Stain Result 0-5 epithelial cells [facility] Gram Stain Result No organisms seen [facility] Specimen Sputum Performing Organization Address [facility] Centercode Phone Number [facility] [address] [place] [address] CENTER PT/aPTT (07/20/2018 4:58 AM CDT)Only the most recent of8 resultswithin the time period is included. Protime 15.6 (H) 11.7 - 14.7 seconds [facility] INR 1.2 <=5.9 [facility] PTT 46.0 (H) 22.5 - 36.0 seconds [facility] Specimen Blood Narrative Performed At RECOMMENDED COUMADIN/WARFARIN INR THERAPY [facility] RANGES STANDARD DOSE: 2.0 - 3.0 Includes: PROPHYLAXIS for venous thrombosis, systemic embolization; TREATMENT for venous thrombosis and/or pulmonary embolus. HIGH RISK: Target INR is 2.5-3.5 for patients with mechanical heart valves. Performing Organization Address City/State/Zipcode Phone Number [facility] [address] [place] [address] [place] XR chest 1 view portable / bedside (07/19/2018 12:17 PM CDT)Only the most recent of17 resultswithin the time period is included. Specimen Narrative Performed At FINAL REPORT [facility] INDICATION: leukocytosis in setting of recent laryngectomy COMPARISON: July 17 TECHNIQUE: Chest radiograph, single view, portable technique. FINDINGS / IMPRESSION: No pneumonia is demonstrated. Right base linear opacities represent subsegmental atelectasis. Tracheostomy tube and left low neck dissection noted. No pneumomediastinum or pneumothorax demonstrated. Cardiac and mediastinal contours unremarkable. Signed: Randolph Man MD Report Verified Date/Time:07/19/2018 13:59:21 Reading Location: [facility] [id number] Consult Reading Room Procedure Note Interface, [...] Report Verified Date/Time: 07/19/2018 13:59:21 Reading Location: [facility] B1 C013W Consult Reading Room Performing Organization Address City/[facility] Cent[facility]ode Phone Number GE RIS Urinalysis w/Microscopic + Reflex to Culture (07/19/2018 10:37 AM CDT)Only the most recent of2 resultswithin the time period is included. Color, UA Light Yellow [facility] Clarity, UA Clear [facility] Specific [place], UA 1.013 1.001 - 1.035 [facility] pH, UA 6.0 5.0 - 8.0 [facility] Protein, UA Negative Negative [facility] Glucose, UA Negative Negative [facility] Ketones, UA Negative Negative [facility] Bilirubin, UA Negative Negative [facility] Blood, UA Trace (A) Negative [facility] Nitrite, UA Negative Negative [facility] Leukocytes, UA Small (A) Negative [facility] Urobilinogen, UA 0.2 0.2 - 1.0 mg/dL [facility] RBC, UA 2 /HPF [facility] WBC, UA 15 /HPF [facility] Mucus Occasional [facility] Hyaline Casts, UA 2 /LPF [facility] Specimen Source [facility] Specimen Urine Performing Organization Address City/[facility]/Zipcode Phone Number [facility] [address] [place] [address] [place] Urine culture (07/19/2018 10:37 AM CDT) Result No growth [facility] Specimen Urine Performing Organization Address City/[facility]/Zipcode Phone Number [address] [phone] [place] T4, free (07/18/2018 9:30 AM CDT)Only the most recent of2 resultswithin the time period is included. Free T4 0.90 0.70 - 1.48 ng/dL [facility] Specimen Blood Performing Organization Address City/[facility]/[place] [address] [phone] [place] Albumin (07/17/2018 3:49 AM CDT)Only the most recent of4 resultswithin the time period is included. Albumin 3.2 (L) 3.5 - 5.0 g/dL [facility] Specimen Blood Performing Organization Address [facility] Phone Number [address] [phone] [place] ECG 12 lead (07/16/2018 8:41 AM CDT)Only the most recent of2 resultswithin the time period is included. Specimen Narrative Performed At Ventricular Rate 116 BPM GE MUSE Atrial Rate 116 BPM P-R Interval 140 ms QRS Duration 70 ms Q-T Interval 328 ms QTC Calculation(Bazett) 455 ms P Orange 49 degrees R Orange 30 degrees T Orange 33 degrees Sinus tachycardia Otherwise normal ECG No previous ECGs available Confirmed by MD Walter Roberto ([id number]) on 07/17/2018 2:09:23 PM Procedure Note Interface, External Ris In - 07/17/2018 2:09 PM CDT Ventricular Rate 116 BPM Atrial Rate 116 BPM P-R Interval 140 ms QRS Duration 70 ms Q-T Interval 328 ms QTC Calculation(Bazett) 455 ms P Orange 49 degrees R Orange 30 degrees T Orange 33 degrees Sinus tachycardia Otherwise normal ECG No previous ECGs available Confirmed by MD Walter Roberto ([id number]) on 07/17/2018 2:09:23 PM Performing Organization Address City/[facility] Phone Number GE MARTINEZ Troponin I (07/16/2018 7:32 AM CDT)Only the most recent of2 resultswithin the time period is included. Troponin I 0.01 0.00 - 0.03 ng/mL [facility] Specimen Blood Narrative Performed At Troponin I (TnI) levels must be interpreted [facility] in the context of the presenting symptoms [...] disease, and persistent tachyarrhythmia. Performing Organization Address [facility] Phone Number [address] [address] [place] Blood gas, arterial (07/16/2018 7:32 AM CDT)Only the most recent of5 resultswithin the time period is included. pH, Arterial 7.42 7.35 - 7.45 [facility] pCO2, Arterial 40 35 - 45 mmHg [facility] pO2, Arterial 77 (L) 80 - 90 mmHg [facility] O2 Sat, Arterial 95.8 (L) 96.0 - 97.0 % [facility] HCO3, Arterial 25 21 - 29 mmol/L [facility] Base Excess, Arterial 0.9 -2.0 - 3.0 mmol/L [facility] Patient Temperature 36.8 C [facility] FIO2 44.0 % [facility] Specimen Blood, Arterial Performing Organization Address [facility] Centercode Phone Number [address] [address] [place] TRANSFUSION SERVICE REPORT - SCAN (07/15/2018 6:08 PM CDT) Narrative Performed At TSH (07/14/2018 6:48 PM CDT) TSH 6.82 (H) 0.35 - 4.94 uIU/mL [facility] Specimen Blood Performing Organization Address [facility] Phone Number [address] [address] CENTER Prealbumin (07/14/2018 6:48 PM CDT)Only the most recent of2 resultswithin the time period is included. Prealbumin 17Comment: Specimen slightly 14 - 45 mg/dL [facility] hemolyzed [facility] Specimen Blood Performing Organization Address [facility] Phone Number [address] [address] [phone] [place] PTH, intact (07/14/2018 6:48 PM CDT) PTH 16.1 8.5 - 72.5 pg/mL [facility] Specimen Blood Narrative Performed At Postop Labs [facility] Performing Organization Address [facility] Phone Number [address] [address] [place] Potassium-Stat Lab (07/14/2018 3:01 PM CDT) Potassium 4.0 3.6 - 5.5 meq/L [facility] Specimen Blood, Arterial Performing Organization Address [facility] Phone Number [address] [address] CENTER Sodium Na-Stat Lab (07/14/2018 3:01 PM CDT) Sodium 137 135 - 148 meq/L [facility] Specimen Blood, Arterial Performing Organization Address [facility] Phone Number [address] [address] CENTER Glucose-Stat Lab (07/14/2018 3:01 PM CDT) Glucose 87 70 - 110 mg/dL [facility] Specimen Blood, Arterial Performing Organization Address City/[facility]/Zipcode Phone Number [address] [phone] C[facility] HGB/HCT (H&H)-Stat Lab (07/14/2018 3:01 PM CDT) Hemoglobin 11.0 (L) 13.0 - 16.8 g/dL [facility] Hematocrit 32.0 (L) 40.0 - 50.0 % [facility] Specimen Blood, Arterial Performing Organization Address [facility] Centercode Phone Number [address] [phone] CENTER ABORH, manual (07/14/2018 10:34 AM CDT) ABO Grouping A [facility] Rh Factor POS [facility] Specimen Blood Performing Organization Address [facility] Phone Number [address] [address] Tissue Exam (07/14/2018 10:23 AM CDT)Only the most recent of2 resultswithin the time period is included. Case Report Surgical Pathology Report Case: [id number] [facility] Authorizing Provider:Guilherme Fraire MD Collected: 07/14/2018 [facility]3 [facility] MEDICAL Ordering Location: [facility] PERIOPERATIVE Received: 07/14/2018 [facility]9 CENTER SERVICES Pathologist: Jackie Hardy MD Specimens: A) - Soft Tissue, Other, rule out left superior parathyroid B) - Soft Tissue, Other, NECK DISSECTION LEVEL 1A C) - Soft Tissue, Other, TOTAL LARYNGECTOMY; PLEASE CHECK TRACHEAL AND PHARYNGEAL MARGINS D) - Soft Tissue, Other, LEFT NECK DISSECTION LEVEL 2 DIAGNOSIS A. PARATHYROID GLAND, LEFT SUPERIOR, BIOPSY: [facility] - PARATHYROID TISSUE IDENTIFIED [facility] - NO EVIDENCE OF MALIGNANCY CENTER [...] NODES (0/2) Signing Pathologist Direct Phone Line: [phone] COMMENT There is a detached piece of [facility] necrotic atypical squamous [facility] (section C18) involving CENTER left vocal cord. The focus measures 0.2 cm in greatest dimension. Underlying tissue shows ulceration and granulation tissue. 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 [facility] GROSS DESCRIPTION A. The specimen is received fresh for intraoperative consultation labeled with patient's name "CHELI", medical record number, and "rule out left superior parathyroid." It consists of a piece of paige-pink [facility] tissue measuring 0.4 x 0.3 x 0.2 cm. A touch preparation slide is made. The specimen is entirely embedded as FSA1 for frozen section diagnosis. [facility] B. The specimen is received in formalin [...] longitudinally and reveals no gross mass lesion. Casing [employer] sections are submitted as follows: C6 - [...] TISSUE, "RULE OUT LEFT SUPERIOR PARATHYROID," EXCISION: [facility] CONSULTATION - PARATHYROID TISSUE IDENTIFIED [facility] - NO EVIDENCE OF MALIGNANCY CENTER VERBALLY [...] C. There is a detached piece of [facility] necrotic atypical squamous [facility] cells (section C18) in left CENTER vocal cord. Underlying tissue shows ulcer and granulation tissue. On C19, [place]-8 positivity confirms portion of thyroid tissue present. [...] the use of immunohistochemistry or special stains. [facility] Immunohistochemistry technical testing was performed at [facility], Pathology Laboratory where it was developed and [...] Soft tissue (navigational concept) Performing Organization Address City/[facility] Phone Number [address] [address] [phone] CENTER Type and screen, automated (07/14/2018 10:18 AM CDT) ABO/RH AUTOMATED (BEAKER) A POSITIVE [facility] Ab Scrn NEGATIVE [facility] Specimen Blood Performing Organization Address [facility] Phone Number [address] [phone] IR G-Tube Insertion w/Fluoro (07/11/2018 9:45 AM CDT) Specimen Narrative Performed At FINAL REPORT GE [facility] Fluoroscopic guided gastrostomy tube placement, 07/11/2018. Clinical History: Laryngeal cancer. Modality: Fluoroscopy. Glass Robot Operator:Jack Beckford MD. Warp Tension Tester:Dilip Vivas MD. Conscious sedation: 2.0 mg Versed, [...] After the tract was dilated, a 14 Cuban catheter was placed into the stomach. The [...] MD Report Verified Date/Time:07/11/2018 14:18:50 Reading Location: [address] Body Reading Room Procedure Note Interface, External Ris In - 07/11/2018 2:20 PM CDT FINAL REPORT Fluoroscopic guided gastrostomy tube placement, 07/11/2018. Clinical History: Laryngeal cancer. Modality: Fluoroscopy. Glass Robot Operator: Jack Beckford MD. Warp Tension Tester: Dilip Vivas MD. Conscious sedation: 2.0 mg [...] After the tract was dilated, a 14 Cuban catheter was placed into the stomach. The [...] Report Verified Date/Time: 07/11/2018 14:18:50 Reading Location: [place] [id number] Angio Body Reading Room Performing Organization Address City/State/Zipcode Phone Number [facility] XR chest PA or AP 1 view in dept (07/10/2018 11:01 AM CDT) Specimen Narrative Performed At FINAL REPORT [facility] AP chest HISTORY: Cough. COMPARISON: 06/17/2018. IMPRESSION: Tracheostomy tube present. Heart size normal. Lungs clear without effusion or pneumothorax. Intact skeleton. Signed: Ashok Whitaker MD Report Verified Date/Time:07/10/2018 11:03:24 Reading Location: [address] Radiology Reading Room Procedure Note Interface, External Ris In - 07/10/2018 11:05 AM CDT FINAL REPORT AP chest HISTORY: Cough. COMPARISON: 06/17/2018. IMPRESSION: Tracheostomy tube present. Heart size normal. Lungs clear without effusion or pneumothorax. Intact skeleton. Signed: Ashok Whitaker MD Report Verified Date/Time: 07/10/2018 11:03:24 Reading Location: [address] Radiology Reading Room Performing Organization Address City/State/Zipcode Phone Number [facility] Comprehensive metabolic panel (07/10/2018 10:13 AM CDT)Only the most recent of2 resultswithin the time period is included. Protein, Total 7.2 6.0 - 8.3 gm/dL [facility] Albumin 3.9 3.5 - 5.0 g/dL [facility] Alkaline Phosphatase 98 40 - 150 U/L [facility] Total Bilirubin 0.4 0.2 - 1.2 mg/dL [facility] Sodium 141 136 - 145 meq/L [facility] Potassium 4.4 3.5 - 5.1 meq/L [facility] Chloride 109 (H) 98 - 107 meq/L [facility] CO2 24 22 - 29 meq/L [facility] BUN 14 7 - 21 mg/dL [facility] Creatinine 0.78 0.57 - 1.25 mg/dL [facility] Glucose 107 (H) 70 - 105 mg/dL [facility] Calcium 9.4 8.4 - 10.2 mg/dL [facility] AST 17 5 - 34 U/L [facility] ALT 17 6 - 55 U/L [facility] EGFR 106Comment: ESTIMATED mL/min/1.[address] [facility] GFR IS NOT ACCURATE [facility] CREATININE CLEARANCE IN PREDICTING GLOMERULAR FILTRATION RATE. ESTIMATED GFR IS NOT APPLICABLE FOR DIALYSIS PATIENTS. Specimen Blood Performing Organization Address City/[facility] Phone Number [address] [address] [phone] CENTER Blood Culture - Routine (Right Venipuncture) (06/18/2018 2:31 PM CDT)Only the most recent of6 resultswithin the time period is included. Result No growth in 5 days [facility] Specimen Blood Performing Organization Address [facility] Phone Number [address] [address] CENTER Vancomycin level, random (06/18/2018 10:48 AM CDT)Only the most recent of2 resultswithin the time period is included. Vancomycin Rm 1.3 ug/mL [facility] Specimen Blood Narrative Performed At Reference Range: No Normals [facility] Performing Organization Address [facility] Phone Number [address] [address] CENTER Procalcitonin (06/17/2018 1:20 PM CDT) Procalcitonin 0.08 (H) <0.05 ng/mL [facility] Specimen Blood Narrative Performed At SEPSIS RISK (ng/mL) [facility] Low:0.05-0.50 Intermediate: 0.51-2.00 High: >=2.01 Performing Organization Address [facility] Phone Number [address] [address] [phone] CENTER Lactic acid, venous (06/17/2018 1:20 PM CDT) Lactate, Venous 2.4 (H)Comment: Specimen 0.5 - 2.2 mmol/L [facility] slightly hemolyzed [facility] Specimen Blood Performing Organization Address City/State/Zipcode Phone Number [facility] [address] [place] [address] [phone] CENTER PERIPHERAL VASCULAR REPORT - SCAN (06/16/2018 9:10 PM CDT) Narrative Performed At CT chest for pulmonary embolus (06/16/2018 9:30 AM CDT) Specimen Narrative Performed At FINAL REPORT [facility] CT Chest with contrast (PE protocol) [...] MD Report Verified Date/Time:06/16/2018 09:53:01 Reading Location: [facility] Diagnostic Imaging Reading Room - [place] [address] Procedure Note Interface, External Ris In - [...] Report Verified Date/Time: 06/16/2018 09:53:01 Reading Location: [facility] Diagnostic Imaging Reading Room - [place] [address] Performing Organization Address City/State/Zipcode Phone Number [employer] ECHOCARDIOGRAM REPORT - SCAN (06/15/2018 9:10 PM CDT) Narrative Performed At Venous doppler legs bilateral (06/15/2018 1:55 PM CDT) Ejection Fraction [facility] Specimen Impressions Performed At Right Impression [facility] 1. There is no deep venous obstruction [...] At LAB - Lower Extremities DVT Study [facility] Demographics Patient JIMMIE DillDate of Study 06/15/2018 PAM 47 Visit [id number] Male of 1970 Referring Veronica Hernandez Room Number 7409 Physician Vel Engineer Automated Equipment Ron France [facility] Physician Procedure Type of Study: Veins: Lower [...] Study 06/15/2018 PAM Age 47 Visit Number [id number] Gender Male Accession Number [id number] Date of 1970 Referring Veronica Hernandez Room Number 7409 Physician Vel Engineer Automated Equipment Ron Gutierrez Interpreting Keerthi France S Physician [...] cm Performing Organization Address City/State/Zipcode Phone Number [facility] Spare Backup [facility] 2D Echo W/Doppler(CW/PW/Color) (06/15/2018 12:11 PM CDT) Ejection Fraction [facility] Sp[facility] Specimen Narrative Performed At Transthoracic Echocardiography Report (TTE) [facility] Spare Backup [facility] Demographics Patient Name Haven PUGH of Study 06/15/2018 PAM [id number] GenderMale Visit Number [id number] Unknown [id number] Room Number 7409 Number Date of Birth1970Referring Physician Veronica Crowder Age47 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 Phone Number [facility] D-dimer (06/15/2018 9:00 AM CDT) D-Dimer, Quant 1.59 (H) <0.50 MG/L FEU [facility] Specimen Blood Narrative Performed At Intended Use: The D-Dimer Assay can be used [facility] to aid in the diagnosis of Deep Vein Thrombosis (DVT) and Pulmonary Embolism Disease (PED). In patients with low pre-test probability, various studies concerning STA Liatest D-dimer test have reported that with a cutoff value of 0.50 MG/L FEU, the Negative Predictive Value (NPV) regarding the exclusion of thrombosis is within 95-100% range. Performing Organization Address [facility] Phone Number [address] [address] [place] B-type Natriuretic Factor (BNP) (06/15/2018 9:00 AM CDT) BNP 66 0 - 100 pg/mL [facility] Specimen Blood Performing Organization Address [facility] Phone Number [address] [address] [place] RESPIRATORY PANEL [facility] (06/15/2018 8:57 AM CDT) Human Metapneumovirus Not detected Not detected, [facility] Rhinovirus Not detected Not detected, [facility] Influenza A Not detected Not detected, [facility] INFLUENZA A (NO SUBTYPE) Not detected, [facility] Influenza A subtype H1 Not detected, [facility] Influenza A Subtype H3 Not detected, [facility] Influenza A Subtype Not detected, [facility] H1-2009 Equivocal [facility] Influenza B Not detected Not detected, [facility] Respiratory Syncytial Not detected Not detected, [facility] Virus Equivocal [facility] Parainfluenza Virus 1 Not detected Not detected, [facility] Parainfluenza Virus 2 Not detected Not detected, [facility] Parainfluenza virus 3 Not detected Not detected, [facility] Parainfluenza Virus 4 Not detected Not detected, [facility] Adenovirus Not detected Not detected, [facility] Coronavirus 229E Detected Not detected, [facility] (A)Comment: Droplet [facility] isolation. Consider stopping antibiotics. Coronavirus HKU1 Not detected Not detected, [facility] Coronavirus NL63 Not detected Not detected, [facility] Coronavirus OC43 Not detected Not detected, [facility] Bordetella Pertussis Not detected Not detected, [facility] Chlamydophila Pneumoniae Not detected Not detected, [facility] Mycoplasma Pneumoniae Not detected Not detected, [facility] Specimen Nasopharyngeal Narrative Performed At Other viruses and bacteria not targeted by [facility] this PCR panel cannot be excluded; therefore clinical correlation and follow up of serology, culture results, and other molecular studies is required. The results are not intended to be used as the sole means for clinical diagnosis or patient management decisions. This sample was tested at the [facility] using the panOpen FilmArray Respiratory Panel. It is FDA cleared and has been verified and approved by the [facility] for clinical use on nasal swab specimens. It is not FDA-cleared for use on bronchial wash/lavage samples. However, for this sample type, validation was performed and test characteristics were determined and approved, by [facility] for clinical use under the Clinical Laboratory Improvement Amendments (CLIA) of 1988 requirements. Therefore, FDA clearance is not required.This laboratory is CLIA-certified and [employer] (CAP)-accredited to perform high complexity testing. Performing Organization Address City/[facility] Phone Number [address] [address] [phone] [place] Fibrinogen (06/15/2018 8:40 AM CDT) Fibrinogen 621 (H) 225 - 434 mg/dl [facility] Specimen Blood Performing Organization Address [facility] Phone Number [address] [address] [phone] [place] Lactic Acid, Arterial (06/15/2018 8:21 AM CDT) Lactate, Art 0.8Comment: Specimen 0.5 - 2.2 mmol/L [facility] slightly hemolyzed [facility] Specimen Blood, Arterial Performing Organization Address [facility] Phone Number [address] [address] [place] POC-Lactic Acid, Venous (06/15/2018 4:26 AM CDT) POC-Lactic Acid, Venous 1.1Comment: TESTED AT 0.9 - 1.7 mmol/L [address] [address] Specimen Blood Performing Organization Address [facility] Phone Number [address] [address] [phone] CENTER aPTT (06/13/2018 3:34 AM CDT)Only the most recent of5 resultswithin the time period is included. PTT 27.4 22.5 - 36.0 seconds [facility] Specimen Blood Performing Organization Address [facility] Phone Number [address] [address] [place] Prothrombin time/INR (06/13/2018 3:34 AM CDT)Only the most recent of5 resultswithin the time period is included. Protime 13.8 11.7 - 14.7 seconds [facility] INR 1.1 <=5.9 [facility] Specimen Blood Narrative Performed At RECOMMENDED COUMADIN/WARFARIN INR THERAPY [facility] RANGES STANDARD DOSE: 2.0 - 3.0 Includes: PROPHYLAXIS for venous thrombosis, systemic embolization; TREATMENT for venous thrombosis and/or pulmonary embolus. HIGH RISK: Target INR is 2.5-3.5 for patients with mechanical heart valves. Performing Organization Address City/State/Zipcode Phone Number [facility] [address] [place] [address] [phone] [place] [address] chest with IV contrast (06/12/2018 9:32 AM CDT) Specimen Narrative Performed At FINAL REPORT [employer] INDICATION: Cancer surveillance. Report of laryngeal mass. [...] MD Report Verified Date/Time:06/12/2018 10:26:26 Reading Location: [facility] Diagnostic Imaging Reading Room - [place] [id number] Procedure Note Interface, External Ris In [...] Report Verified Date/Time: 06/12/2018 10:26:26 Reading Location: [facility] Diagnostic Imaging Reading Room - [place] [address] Performing Organization Address City/State/Zipcode Phone Number [facility] CT neck soft tissue with IV contrast (06/12/2018 9:32 AM CDT) Specimen Narrative Performed At FINAL REPORT [employer] CT, SOFT TISSUE NECK, CONTRAST INDICATION:Cancer Surveillance [...] MD Report Verified Date/Time:06/12/2018 09:53:06 Reading Location: [facility] C013V Neuro Reading Room Procedure Note Interface, [...] Report Verified Date/Time: 06/12/2018 09:53:06 Reading Location: [facility] C013V Neuro Reading Room Performing Organization Address City/State/Zipcode Phone Number [facility] Blood gas, venous (06/10/2018 3:45 AM CDT) pH, Jorge 7.48 (H) 7.32 - 7.42 [facility] pCO2, Jorge 37 (L) 41 - 51 mmHg [facility] pO2, Jorge 94 (H) 25 - 40 mmHg [facility] O2 Sat, Jorge 97.7 (H) 40.0 - 70.0 % [facility] HCO3, Jorge 27 21 - 29 mmol/L [facility] Base Excess, Jorge 3.7 (H) -2.0 - 3.0 mmol/L [facility] Patient Temperature 37.0 C [facility] Specimen Blood Performing Organization Address [facility] Phone Number [address] [address] CENTER Platelet count (06/09/2018 12:28 PM CDT) Platelets 203 150 - 450 K/CU MM [facility] Specimen Blood Performing Organization Address City/[facility] Phone Number [address] [address] CENTER Hemoglobin (06/09/2018 12:28 PM CDT) Hemoglobin 15.7 13.7 - 17.5 GM/DL [facility] Specimen Blood Performing Organization Address [facility] Phone Number [address] [address] CENTER after 09/06/2017 Advance Directives Patient has advance care planning documents, and code status on file. For more information, please contact:[address] [phone] Code Status Date Activated Date Inactivated Comments [...]
--- OUTSIDE RECORDS SUMMARY | 2018-09-07 15:55 | XMS REPORT ---
[...] Status Dosage System Date Date BuPROPion HCl [facility] 80278616294 150 MG Orally Dec 16, Active 1 tablet ER (Smoking Once a day 2018 in the Det) morning Xanax [facility] 13630011607 1 MG Orally Active 1 tablet Once a day Zofran ND 05436107415 8 MG Orally Active 1 tablet Twice a day PRN Hydrocodone-Ari ND 76968499433 10-325 MG Active 1 tablet taminophen Orally every 6 as needed hrs Citalopram ND 69468736622 20 MG Orally Inactive 1 tablet Hydrobromide Once a day Results No Known Results Summary Purpose eClinicalWorks Submission
--- OUTSIDE RECORDS SUMMARY | 2018-09-07 15:55 | XMS REPORT ---
[...] Status Dosage System Date Date Hydrocodone-Acet [facility] 52427462361 10-325 MG Active 1 tablet aminophen Orally every 6 as needed hrs Citalopram [facility] 29148430255 20 MG Orally Active 1 tablet Hydrobromide Once a day Xanax [facility] [address]-27 1 MG Orally Active 1 tablet Once a day Zofran [facility] [address]-14 8 MG Orally Active 1 tablet Twice a day PRN Results No Known Results Summary Purpose eClinicalWorks Submission
--- OUTSIDE RECORDS SUMMARY | 2018-09-07 15:55 | XMS REPORT ---
[...] Dosage System Date Date BuPROPion HCl [facility] 33415844931 150 MG Orally Dec 16, Active 1 tablet ER (Smoking Once a day 2018 in the Det) morning Xanax [facility] 91633598943 1 MG Orally Once Active 1 tablet a day Zofran ND 62783156113 8 MG Orally Active 1 tablet Twice a day PRN Hydrocodone-Ac ND 70485317478 10-325 MG Orally Active 1 tablet etaminophen every 6 hrs as needed Results No Known Results Summary Purpose eClinicalWorks Submission
--- OUTSIDE RECORDS SUMMARY | 2018-09-07 16:01 | XMS REPORT ---
:1970 [facility] Address [address] [place] [address] [address] [place] [address] Care Team Providers Name Role Phone JENNIFER [...] Comments CREATININE (BEAKER) (test 0.63 mg/dL 0.57-1.25 pfoy=316) EGFR (BEAKER) (test 136 mL/min/1.73 sq m ESTIMATED GFR IS NOT udkj=6072) ACCURATE CREATININE CLEARANCE IN PREDICTING GLOMERULAR FILTRATION RATE. ESTIMATED GFR IS NOT APPLICABLE FOR DIALYSIS PATIENTS. WOUND CULTURE + GRAM [id number] 16:32:00 Test Item Value Reference Range Comments CULTURE (BEAKER) (test No growth qklt=2071) GRAM STAIN RESULT (BEAKER) 2+ WBCs (test rihu=9406) GRAM STAIN RESULT (BEAKER) 1+ gram positive cocci in (test ttjh=40978) pairs GRAM STAIN RESULT (BEAKER) <1+ gram variable rods (test usfz=87637) VANCOMYCIN LEVEL, [id number] 23:37:00 Test Item Value Reference Range Comments VANCOMYCIN TROUGH (BEAKER) (test zggp=248) 7.5 ug/mL 10.0-20.0 FL, ESOPH, SWALLOW FUNCTION, WITH CINE OR [id number] 18:19:00Cervical esophagram with GASTROGAFFINReason for exam:->status post [...] MDReport Verified Date/Time: 08/12/2018 18:19:29 Reading Location: [place] [id number] [facility] Consult Reading Room CBC W/PLT COUNT & AUTO [id number] 04: 39:00 Test Item Value Reference Range Comments WHITE BLOOD CELL COUNT (BEAKER) (test dkpk=848) 7.1 K/ L 3.5-10.5 RED BLOOD CELL COUNT (BEAKER) (test thwk=979) 3.77 M/ L 4.63-6.08 HEMOGLOBIN (BEAKER) (test feqg=044) 10.9 GM/DL 13.7-17.5 HEMATOCRIT (BEAKER) (test devc=045) 35.7 % 40.1-51.0 MEAN CORPUSCULAR VOLUME (BEAKER) (test ckoj=992) 94.7 fL 79.0-92.2 MEAN CORPUSCULAR HEMOGLOBIN (BEAKER) (test 28.9 pg 25.7-32.2 uumb=686) MEAN CORPUSCULAR HEMOGLOBIN CONC (BEAKER) (test 30.5 GM/DL 32.3-36.5 qntm=361) RED CELL DISTRIBUTION WIDTH (BEAKER) (test 14.6 % 11.6-14.4 pkus=967) PLATELET COUNT (BEAKER) (test esfx=152) 318 K/CU MM 150-450 MEAN PLATELET VOLUME (BEAKER) (test eqzn=660) 9.8 fL 9.4-12.4 NUCLEATED RED BLOOD CELLS (BEAKER) (test 0 /100 WBC 0-0 tvab=983) NEUTROPHILS RELATIVE PERCENT (BEAKER) (test 72 % kusq=762) LYMPHOCYTES RELATIVE PERCENT (BEAKER) (test 10 % tvoy=749) MONOCYTES RELATIVE PERCENT (BEAKER) (test 12 % tjwg=587) EOSINOPHILS RELATIVE PERCENT (BEAKER) (test 4 % dndo=791) BASOPHILS RELATIVE PERCENT (BEAKER) (test 1 % txoq=339) NEUTROPHILS ABSOLUTE COUNT (BEAKER) (test 5.08 K/ L 1.78-5.38 xpbv=468) LYMPHOCYTES ABSOLUTE COUNT (BEAKER) (test 0.68 K/ L 1.32-3.57 nidy=252) MONOCYTES ABSOLUTE COUNT (BEAKER) (test 0.86 K/ L 0.30-0.82 rwcg=225) EOSINOPHILS ABSOLUTE COUNT (BEAKER) (test 0.29 K/ L 0.04-0.54 idrl=507) BASOPHILS ABSOLUTE COUNT (BEAKER) (test 0.04 K/ L 0.01-0.08 ktjf=262) IMMATURE GRANULOCYTES-RELATIVE PERCENT (BEAKER) 1 % 0-1 (test gwtm=9047) TSH/FREE T4 IF [id number] 18:11:00 Test Item Value Reference Range Comments THYROID STIMULATING HORMONE (BEAKER) (test 0.75 uIU/mL 0.35-4.94 mlnv=340) CBC W/PLT COUNT & AUTO [id number] 17:31:00 Test Item Value Reference Range Comments WHITE BLOOD CELL COUNT (BEAKER) (test iasf=040) 9.2 K/ L 3.5-10.5 RED BLOOD CELL COUNT (BEAKER) (test aylr=834) 3.78 M/ L 4.63-6.08 HEMOGLOBIN (BEAKER) (test nrfb=375) 11.0 GM/DL 13.7-17.5 HEMATOCRIT (BEAKER) (test yxyi=086) 35.4 % 40.1-51.0 MEAN CORPUSCULAR VOLUME (BEAKER) (test zhhw=541) 93.7 fL 79.0-92.2 MEAN CORPUSCULAR HEMOGLOBIN (BEAKER) (test 29.1 pg 25.7-32.2 xaxk=357) MEAN CORPUSCULAR HEMOGLOBIN CONC (BEAKER) (test 31.1 GM/DL 32.3-36.5 yuzm=892) RED CELL DISTRIBUTION WIDTH (BEAKER) (test 14.7 % 11.6-14.4 sufv=057) PLATELET COUNT (BEAKER) (test jbui=046) 323 K/CU MM 150-450 MEAN PLATELET VOLUME (BEAKER) (test ftrw=365) 9.6 fL 9.4-12.4 NUCLEATED RED BLOOD CELLS (BEAKER) (test 0 /100 WBC 0-0 mynt=995) NEUTROPHILS RELATIVE PERCENT (BEAKER) (test 75 % hyvh=978) LYMPHOCYTES RELATIVE PERCENT (BEAKER) (test 9 % cwgt=496) MONOCYTES RELATIVE PERCENT (BEAKER) (test 12 % osus=565) EOSINOPHILS RELATIVE PERCENT (BEAKER) (test 3 % fmxu=264) BASOPHILS RELATIVE PERCENT (BEAKER) (test 0 % fmls=426) NEUTROPHILS ABSOLUTE COUNT (BEAKER) (test 6.86 K/ L 1.78-5.38 rdjb=696) LYMPHOCYTES ABSOLUTE COUNT (BEAKER) (test 0.81 K/ L 1.32-3.57 xgiy=417) MONOCYTES ABSOLUTE COUNT (BEAKER) (test 1.13 K/ L 0.30-0.82 imow=783) EOSINOPHILS ABSOLUTE COUNT (BEAKER) (test 0.24 K/ L 0.04-0.54 hher=351) BASOPHILS ABSOLUTE COUNT (BEAKER) (test 0.04 K/ L 0.01-0.08 ebfr=677) IMMATURE GRANULOCYTES-RELATIVE PERCENT (BEAKER) 1 % 0-1 (test xfkt=2663) TISSUE [id number] 10:26:00Surgical Pathology Report Case: [id number] Authorizing Provider: Jennifer Fraire MD Collected: 07/14/2018 1023 Ordering Location: [facility] Received: 07/14/2018 1029 SERVICES Pathologist: Jackie [...] cannot be determined from the submitted specimen(s) 57143 X3 , 42546, 35465, 00088 X2, 23318 X 4, 47549 x1, 73864 [id number] 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 Lead Refiner sections are submitted as follows: C6 - [...] shows ulcer and granulation tissue. On C19, Wells-8 positivity confirms portion of thyroidtissue present. On [...] stains. Immunohistochemistry technical testing was performed at [facility], Pathology Laboratory where it was [...] clinical laboratory testing.CBC W/PLT COUNT & AUTO [id number] 09:34:00 Test Item Value Reference Range Comments WHITE BLOOD CELL COUNT (BEAKER) (test hyhn=610) 10.8 K/ L 3.5-10.5 RED BLOOD CELL COUNT (BEAKER) (test ngck=630) 3.45 M/ L 4.63-6.08 HEMOGLOBIN (BEAKER) (test vjjq=916) 10.2 GM/DL 13.7-17.5 HEMATOCRIT (BEAKER) (test eamn=513) 34.1 % 40.1-51.0 MEAN CORPUSCULAR VOLUME (BEAKER) (test oguq=832) 98.8 fL 79.0-92.2 MEAN CORPUSCULAR HEMOGLOBIN (BEAKER) (test 29.6 pg 25.7-32.2 jsiw=965) MEAN CORPUSCULAR HEMOGLOBIN CONC (BEAKER) (test 29.9 GM/DL 32.3-36.5 gwdr=716) RED CELL DISTRIBUTION WIDTH (BEAKER) (test 15.7 % 11.6-14.4 verm=333) PLATELET COUNT (BEAKER) (test pnzk=609) 522 K/CU MM 150-450 MEAN PLATELET VOLUME (BEAKER) (test hpyo=347) 10.2 fL 9.4-12.4 NUCLEATED RED BLOOD CELLS (BEAKER) (test 0 /100 WBC 0-0 zimy=984) (CELLAVISION MANUAL DIFF)2018-07-24 09:34:00 Test Item Value Reference Range Comments NEUTROPHILS - REL (CELLAVISION)(BEAKER) (test 80 % wjlp=3856) LYMPHOCYTES - REL (CELLAVISION)(BEAKER) (test 2 % zopn=3432) MONOCYTES - REL (CELLAVISION)(BEAKER) (test 15 % hlfx=2625) EOSINOPHILS - REL (CELLAVISION)(BEAKER) (test 3 % ynaq=5575) NEUTROPHILS - ABS (CELLAVISION)(BEAKER) (test 8.64 K/ul 1.78-5.38 oyar=1102) LYMPHOCYTES - ABS (CELLAVISION)(BEAKER) (test 0.22 K/ul 1.32-3.57 gvta=4241) MONOCYTES - ABS (CELLAVISION)(BEAKER) (test 1.62 K/uL 0.30-0.82 xrmh=0199) EOSINOPHILS - ABS (CELLAVISION)(BEAKER) (test 0.32 K/uL 0.04-0.54 swbk=7476) TOTAL COUNTED (BEAKER) (test prgw=7549) 100 WBC MORPHOLOGY (BEAKER) (test odvv=260) Normal LARGE PLT(BEAKER) (test nfsp=0020) Present POLYCHROMATOPHILLIC RBCS(BEAKER) (test ectw=154) 1+ few ARTIFACT (CELLAVISION)(BEAKER) (test tnym=9153) Present PLATELET CONCENTRATION (CELLAVISION)(BEAKER) (test Increased zkxa=0441) Received comment: User comments: Slide comments:[id number] 05:40:00 Test Item Value Reference Range Comments PHOSPHORUS (BEAKER) (test nzvw=880) 4.8 mg/dL 2.3-4.7 [id number] 05:40:00 Test Item Value Reference Range Comments MAGNESIUM (BEAKER) (test sfjj=472) 2.1 mg/dL 1.6-2.6 BASIC METABOLIC [id number] 05:40:00 Test Item Value Reference Range Comments SODIUM (BEAKER) (test 140 meq/L 136-145 itzd=241) POTASSIUM (BEAKER) (test 4.0 meq/L 3.5-5.1 fbiy=458) CHLORIDE (BEAKER) (test 99 meq/L 98-107 mmqh=535) CO2 (BEAKER) (test 30 meq/L 22-29 mpni=618) BLOOD UREA NITROGEN 8 mg/dL 7-21 (BEAKER) (test alnj=381) CREATININE (BEAKER) (test 0.71 mg/dL 0.57-1.25 plup=974) GLUCOSE RANDOM (BEAKER) 90 mg/dL 70-105 (test zlyr=754) CALCIUM (BEAKER) (test 8.8 mg/dL 8.4-10.2 nmyh=812) EGFR (BEAKER) (test 118 mL/min/1.73 sq m ESTIMATED GFR IS NOT cjqu=0997) ACCURATE CREATININE CLEARANCE IN PREDICTING GLOMERULAR FILTRATION RATE. ESTIMATED GFR IS NOT APPLICABLE FOR DIALYSIS PATIENTS. CBC W/PLT COUNT & AUTO [id number] 11:50:00 Test Item Value Reference Range Comments WHITE BLOOD CELL COUNT (BEAKER) (test fhxa=603) 13.2 K/ L 3.5-10.5 RED BLOOD CELL COUNT (BEAKER) (test xqiw=659) 3.41 M/ L 4.63-6.08 HEMOGLOBIN (BEAKER) (test whub=796) 10.2 GM/DL 13.7-17.5 HEMATOCRIT (BEAKER) (test pcky=863) 33.2 % 40.1-51.0 MEAN CORPUSCULAR VOLUME (BEAKER) (test myyg=815) 97.4 fL 79.0-92.2 MEAN CORPUSCULAR HEMOGLOBIN (BEAKER) (test 29.9 pg 25.7-32.2 rifo=276) MEAN CORPUSCULAR HEMOGLOBIN CONC (BEAKER) (test 30.7 GM/DL 32.3-36.5 scpt=722) RED CELL DISTRIBUTION WIDTH (BEAKER) (test 15.5 % 11.6-14.4 tnof=770) PLATELET COUNT (BEAKER) (test ipkd=659) 473 K/CU MM 150-450 MEAN PLATELET VOLUME (BEAKER) (test ykzo=330) 10.0 fL 9.4-12.4 NUCLEATED RED BLOOD CELLS (BEAKER) (test 0 /100 WBC 0-0 pokj=776) (CELLAVISION MANUAL DIFF)2018-07-23 11:50:00 Test Item Value Reference Range Comments NEUTROPHILS - REL (CELLAVISION)(BEAKER) (test 80 % neuc=5292) LYMPHOCYTES - REL (CELLAVISION)(BEAKER) (test 8 % khxq=5127) MONOCYTES - REL (CELLAVISION)(BEAKER) (test 4 % cdvs=2715) EOSINOPHILS - REL (CELLAVISION)(BEAKER) (test 1 % twva=1802) MYELOCYTES - REL (CELLAVISION)(BEAKER) (test 2 % 0-0 qomi=7841) BANDS - REL (CELLAVISION)(BEAKER) (test 4 % 0-10 mdeo=0529) NEUTROPHILS - ABS (CELLAVISION)(BEAKER) (test 10.56 K/ul 1.78-5.38 tahm=3447) LYMPHOCYTES - ABS (CELLAVISION)(BEAKER) (test 1.06 K/ul 1.32-3.57 lubp=6450) MONOCYTES - ABS (CELLAVISION)(BEAKER) (test 0.53 K/uL 0.30-0.82 ujvm=7532) EOSINOPHILS - ABS (CELLAVISION)(BEAKER) (test 0.13 K/uL 0.04-0.54 rfni=4067) MYELOCYTES-ABS (CELLAVISION)(BEAKER) (test 0.26 K/uL 0.00-0.00 teuv=7426) BANDS - ABS (CELLAVISION)(BEAKER) (test 0.53 K/uL 0.00-0.80 wqff=5058) TOTAL COUNTED (BEAKER) (test uzdl=6005) 100 WBC MORPHOLOGY (BEAKER) (test pdfm=343) Normal PLT MORPHOLOGY (BEAKER) (test fuda=543) Normal ANISOCYTOSIS (BEAKER) (test nokq=292) 2+ moderate MICROCYTES (BEAKER) (test cpfn=462) 1+ few ARTIFACT (CELLAVISION)(BEAKER) (test zonr=1893) Present PLATELET CONCENTRATION (CELLAVISION)(BEAKER) Increased (test nlcc=2410) Received comment: User comments: Slide comments:SPUTUM CULTURE + GRAM [id number] 10:46:00 Test Item Value Reference Range Comments CULTURE (BEAKER) (test <1+ Normal respiratory maximo xmsd=3357) present GRAM STAIN RESULT (BEAKER) <1+ White blood cells seen (test ohls=1224) GRAM STAIN RESULT (BEAKER) 0-5 epithelial cells (test vuja=97113) GRAM STAIN RESULT (BEAKER) No organisms seen (test djjp=87447) [id number] 06:07:00 Test Item Value Reference Range Comments PHOSPHORUS (BEAKER) (test kfvy=131) 4.6 mg/dL 2.3-4.7 [id number] 06:07:00 Test Item Value Reference Range Comments MAGNESIUM (BEAKER) (test hcox=266) 2.0 mg/dL 1.6-2.6 BASIC METABOLIC [id number] 06:07:00 Test Item Value Reference Range Comments SODIUM (BEAKER) (test 140 meq/L 136-145 iqhz=924) POTASSIUM (BEAKER) (test 4.3 meq/L 3.5-5.1 oqxa=051) CHLORIDE (BEAKER) (test 101 meq/L 98-107 xdkf=346) CO2 (BEAKER) (test 31 meq/L 22-29 bqxo=278) BLOOD UREA NITROGEN 10 mg/dL 7-21 (BEAKER) (test wrzq=148) CREATININE (BEAKER) (test 0.67 mg/dL 0.57-1.25 fwbx=009) GLUCOSE RANDOM (BEAKER) 111 mg/dL 70-105 (test nwpc=211) CALCIUM (BEAKER) (test 8.7 mg/dL 8.4-10.2 egyr=054) EGFR (BEAKER) (test 127 mL/min/1.73 sq m ESTIMATED GFR IS NOT xmff=1172) ACCURATE CREATININE CLEARANCE IN PREDICTING GLOMERULAR FILTRATION RATE. ESTIMATED GFR IS NOT APPLICABLE FOR DIALYSIS PATIENTS. VANCOMYCIN LEVEL, [id number] 23:12:00 Test Item Value Reference Range Comments VANCOMYCIN TROUGH (BEAKER) (test xhwx=575) 3.2 ug/mL 10.0-20.0 POCT-GLUCOSE [id number] 17:57:00 Test Item Value Reference Range Comments POC-GLUCOSE METER (BEAKER) 105 mg/dL 70-110 TESTED AT [address] (test fjre=0363) [facility] [address] CBC W/PLT COUNT & AUTO [id number] 13:00:00 Test Item Value Reference Range Comments WHITE BLOOD CELL COUNT (BEAKER) (test xpmj=976) 12.5 K/ L 3.5-10.5 RED BLOOD CELL COUNT (BEAKER) (test ehap=541) 3.46 M/ L 4.63-6.08 HEMOGLOBIN (BEAKER) (test ofgg=832) 10.4 GM/DL 13.7-17.5 HEMATOCRIT (BEAKER) (test raqk=903) 33.5 % 40.1-51.0 MEAN CORPUSCULAR VOLUME (BEAKER) (test cpxb=348) 96.8 fL 79.0-92.2 MEAN CORPUSCULAR HEMOGLOBIN (BEAKER) (test 30.1 pg 25.7-32.2 oyhj=664) MEAN CORPUSCULAR HEMOGLOBIN CONC (BEAKER) (test 31.0 GM/DL 32.3-36.5 wbhi=124) RED CELL DISTRIBUTION WIDTH (BEAKER) (test 15.4 % 11.6-14.4 ibtb=284) PLATELET COUNT (BEAKER) (test dhir=153) 425 K/CU MM 150-450 MEAN PLATELET VOLUME (BEAKER) (test uqdn=394) 10.1 fL 9.4-12.4 NUCLEATED RED BLOOD CELLS (BEAKER) (test 0 /100 WBC 0-0 sszn=990) (CELLAVISION MANUAL DIFF)2018-07-22 13:00:00 Test Item Value Reference Range Comments NEUTROPHILS - REL (CELLAVISION)(BEAKER) (test 80 % ejka=1002) LYMPHOCYTES - REL (CELLAVISION)(BEAKER) (test 4 % fhcs=7326) MONOCYTES - REL (CELLAVISION)(BEAKER) (test 6 % kwhe=0633) EOSINOPHILS - REL (CELLAVISION)(BEAKER) (test 6 % veqp=1779) BASOPHILS - REL (CELLAVISION)(BEAKER) (test 1 % tgor=4179) MYELOCYTES - REL (CELLAVISION)(BEAKER) (test 3 % 0-0 wmbb=2827) NEUTROPHILS - ABS (CELLAVISION)(BEAKER) (test 10.00 K/ul 1.78-5.38 tanf=6055) LYMPHOCYTES - ABS (CELLAVISION)(BEAKER) (test 0.50 K/ul 1.32-3.57 wnaj=3211) MONOCYTES - ABS (CELLAVISION)(BEAKER) (test 0.75 K/uL 0.30-0.82 flpy=7024) EOSINOPHILS - ABS (CELLAVISION)(BEAKER) (test 0.75 K/uL 0.04-0.54 amhs=2043) BASOPHILS - ABS (CELLAVISION)(BEAKER) (test 0.13 K/uL 0.01-0.08 yyfq=9969) MYELOCYTES-ABS (CELLAVISION)(BEAKER) (test 0.38 K/uL 0.00-0.00 ozgy=4720) TOTAL COUNTED (BEAKER) (test bwkx=7220) 100 WBC MORPHOLOGY (BEAKER) (test neir=802) Normal PLT MORPHOLOGY (BEAKER) (test eroz=936) Normal POLYCHROMATOPHILLIC RBCS(BEAKER) (test ccwe=213) 1+ few ANISOCYTOSIS (BEAKER) (test aiks=863) 1+ few MACROCYTES (BEAKER) (test rqpn=844) 1+ few POIKILOCYTES (BEAKER) (test qchy=709) 2+ moderate ARTIFACT (CELLAVISION)(BEAKER) (test dnzj=4498) Present PLATELET CONCENTRATION (CELLAVISION)(BEAKER) Adequate (test khpp=9643) Received comment: User comments: Slide comments:POCT-GLUCOSE [id number] 12: 50:00 Test Item Value Reference Range Comments POC-GLUCOSE METER (BEAKER) 117 mg/dL 70-110 TESTED AT [facility] [address] [facility] (test ftvs=5033) [facility] [address] [id number] 07:00:00 Test Item Value Reference Range Comments PHOSPHORUS (BEAKER) (test altv=157) 4.2 mg/dL 2.3-4.7 [id number] 07:00:00 Test Item Value Reference Range Comments MAGNESIUM (BEAKER) (test djmz=474) 1.9 mg/dL 1.6-2.6 BASIC METABOLIC [id number] 07:00:00 Test Item Value Reference Range Comments SODIUM (BEAKER) (test 140 meq/L 136-145 jgvr=740) POTASSIUM (BEAKER) (test 4.0 meq/L 3.5-5.1 zuqp=850) CHLORIDE (BEAKER) (test 101 meq/L 98-107 cveg=598) CO2 (BEAKER) (test 32 meq/L 22-29 ryfl=995) BLOOD UREA NITROGEN 9 mg/dL 7-21 (BEAKER) (test hyhi=068) CREATININE (BEAKER) (test 0.62 mg/dL 0.57-1.25 unnb=558) GLUCOSE RANDOM (BEAKER) 104 mg/dL 70-105 (test fmdr=153) CALCIUM (BEAKER) (test 8.4 mg/dL 8.4-10.2 rgpk=606) EGFR (BEAKER) (test 138 mL/min/1.73 sq m ESTIMATED GFR IS NOT lkbd=4822) ACCURATE CREATININE CLEARANCE IN PREDICTING GLOMERULAR FILTRATION RATE. ESTIMATED GFR IS NOT APPLICABLE FOR DIALYSIS PATIENTS. CBC W/PLT COUNT & AUTO [id number] 10:11:00 Test Item Value Reference Range Comments WHITE BLOOD CELL COUNT (BEAKER) (test galu=106) 10.8 K/ L 3.5-10.5 RED BLOOD CELL COUNT (BEAKER) (test krwq=351) 3.48 M/ L 4.63-6.08 HEMOGLOBIN (BEAKER) (test jzyv=556) 10.6 GM/DL 13.7-17.5 HEMATOCRIT (BEAKER) (test yowv=542) 33.9 % 40.1-51.0 MEAN CORPUSCULAR VOLUME (BEAKER) (test xyqq=548) 97.4 fL 79.0-92.2 MEAN CORPUSCULAR HEMOGLOBIN (BEAKER) (test 30.5 pg 25.7-32.2 chbn=936) MEAN CORPUSCULAR HEMOGLOBIN CONC (BEAKER) (test 31.3 GM/DL 32.3-36.5 pkfk=770) RED CELL DISTRIBUTION WIDTH (BEAKER) (test 15.4 % 11.6-14.4 litu=616) PLATELET COUNT (BEAKER) (test riuj=175) 431 K/CU MM 150-450 MEAN PLATELET VOLUME (BEAKER) (test bnnj=736) 10.0 fL 9.4-12.4 NUCLEATED RED BLOOD CELLS (BEAKER) (test 0 /100 WBC 0-0 llbi=194) (CELLAVISION MANUAL DIFF)2018-07-21 10:11:00 Test Item Value Reference Range Comments NEUTROPHILS - REL (CELLAVISION)(BEAKER) (test 77 % zqex=4241) LYMPHOCYTES - REL (CELLAVISION)(BEAKER) (test 3 % nifs=7642) MONOCYTES - REL (CELLAVISION)(BEAKER) (test 7 % mhxl=8716) EOSINOPHILS - REL (CELLAVISION)(BEAKER) (test 3 % olur=3095) MYELOCYTES - REL (CELLAVISION)(BEAKER) (test 4 % 0-0 tfso=5694) PROMYELOCYTES - REL (CELLAVSION)(BEAKER) (test 1 % 0-0 otmt=3582) BANDS - REL (CELLAVISION)(BEAKER) (test 5 % 0-10 rglx=2836) NEUTROPHILS - ABS (CELLAVISION)(BEAKER) (test 8.32 K/ul 1.78-5.38 iiwv=5105) LYMPHOCYTES - ABS (CELLAVISION)(BEAKER) (test 0.32 K/ul 1.32-3.57 bvdq=4350) MONOCYTES - ABS (CELLAVISION)(BEAKER) (test 0.76 K/uL 0.30-0.82 cwvt=3382) EOSINOPHILS - ABS (CELLAVISION)(BEAKER) (test 0.32 K/uL 0.04-0.54 dbnb=4450) MYELOCYTES-ABS (CELLAVISION)(BEAKER) (test 0.43 K/uL 0.00-0.00 qpwd=3203) PROMYELOCYTES - ABS (CELLAVISION)(BEAKER) (test 0.11 K/uL 0.00-0.00 ufaw=2816) BANDS - ABS (CELLAVISION)(BEAKER) (test 0.54 K/uL 0.00-0.80 pgpo=5811) TOTAL COUNTED (BEAKER) (test ouef=6140) 100 WBC MORPHOLOGY (BEAKER) (test kkzf=427) Normal PLT MORPHOLOGY (BEAKER) (test ntof=810) Normal ANISOCYTOSIS (BEAKER) (test gjyp=262) 2+ moderate MICROCYTES (BEAKER) (test rpuy=620) 2+ moderate ARTIFACT (CELLAVISION)(BEAKER) (test glux=2441) Present PLATELET CONCENTRATION (CELLAVISION)(BEAKER) Adequate (test udhc=6009) Received comment: User comments: Slide comments:[id number] 05:39:00 Test Item Value Reference Range Comments PHOSPHORUS (BEAKER) (test ocws=452) 5.1 mg/dL 2.3-4.7 [id number] 05:39:00 Test Item Value Reference Range Comments MAGNESIUM (BEAKER) (test jdvu=801) 2.0 mg/dL 1.6-2.6 BASIC METABOLIC [id number] 05:39:00 Test Item Value Reference Range Comments SODIUM (BEAKER) (test 139 meq/L 136-145 grjv=449) POTASSIUM (BEAKER) (test 4.3 meq/L 3.5-5.1 dvav=496) CHLORIDE (BEAKER) (test 100 meq/L 98-107 wpvs=957) CO2 (BEAKER) (test 29 meq/L 22-29 ifxh=753) BLOOD UREA NITROGEN 10 mg/dL 7-21 (BEAKER) (test scvv=269) CREATININE (BEAKER) (test 0.64 mg/dL 0.57-1.25 btfp=834) GLUCOSE RANDOM (BEAKER) 97 mg/dL 70-105 (test lhzc=594) CALCIUM (BEAKER) (test 8.6 mg/dL 8.4-10.2 uagm=742) EGFR (BEAKER) (test 133 mL/min/1.73 sq m ESTIMATED GFR IS NOT rvdn=4364) ACCURATE CREATININE CLEARANCE IN PREDICTING GLOMERULAR FILTRATION RATE. ESTIMATED GFR IS NOT APPLICABLE FOR DIALYSIS PATIENTS. VANCOMYCIN LEVEL, [id number] 23:38:00 Test Item Value Reference Range Comments VANCOMYCIN TROUGH (BEAKER) (test hxjm=075) 5.5 ug/mL 10.0-20.0 CBC W/PLT COUNT & AUTO [id number] 10:44:00 Test Item Value Reference Range Comments WHITE BLOOD CELL COUNT (BEAKER) (test mcnp=380) 14.3 K/ L 3.5-10.5 RED BLOOD CELL COUNT (BEAKER) (test yvoq=897) 3.43 M/ L 4.63-6.08 HEMOGLOBIN (BEAKER) (test zkuu=660) 10.4 GM/DL 13.7-17.5 HEMATOCRIT (BEAKER) (test vlij=837) 33.5 % 40.1-51.0 MEAN CORPUSCULAR VOLUME (BEAKER) (test lpfp=192) 97.7 fL 79.0-92.2 MEAN CORPUSCULAR HEMOGLOBIN (BEAKER) (test 30.3 pg 25.7-32.2 atob=436) MEAN CORPUSCULAR HEMOGLOBIN CONC (BEAKER) (test 31.0 GM/DL 32.3-36.5 wdzy=814) RED CELL DISTRIBUTION WIDTH (BEAKER) (test 15.7 % 11.6-14.4 inbe=028) PLATELET COUNT (BEAKER) (test edzx=038) 402 K/CU MM 150-450 MEAN PLATELET VOLUME (BEAKER) (test clad=212) 10.6 fL 9.4-12.4 NUCLEATED RED BLOOD CELLS (BEAKER) (test 0 /100 WBC 0-0 finu=746) (CELLAVISION MANUAL DIFF)[id number] 10:44:00 Test Item Value Reference Range Comments NEUTROPHILS - REL (CELLAVISION)(BEAKER) (test 83 % qabw=7081) LYMPHOCYTES - REL (CELLAVISION)(BEAKER) (test 2 % goqb=2716) MONOCYTES - REL (CELLAVISION)(BEAKER) (test 9 % szqz=5092) EOSINOPHILS - REL (CELLAVISION)(BEAKER) (test 3 % iwwp=9393) MYELOCYTES - REL (CELLAVISION)(BEAKER) (test 1 % 0-0 kbmb=9672) BANDS - REL (CELLAVISION)(BEAKER) (test 2 % 0-10 uqoz=1814) NEUTROPHILS - ABS (CELLAVISION)(BEAKER) (test 11.87 K/ul 1.78-5.38 yaqt=3838) LYMPHOCYTES - ABS (CELLAVISION)(BEAKER) (test 0.29 K/ul 1.32-3.57 susi=5576) MONOCYTES - ABS (CELLAVISION)(BEAKER) (test 1.29 K/uL 0.30-0.82 pppc=3958) EOSINOPHILS - ABS (CELLAVISION)(BEAKER) (test 0.43 K/uL 0.04-0.54 ulmc=7893) MYELOCYTES-ABS (CELLAVISION)(BEAKER) (test 0.14 K/uL 0.00-0.00 seai=0915) BANDS - ABS (CELLAVISION)(BEAKER) (test 0.29 K/uL 0.00-0.80 fpzf=8068) TOTAL COUNTED (BEAKER) (test dsxk=4741) 100 WBC MORPHOLOGY (BEAKER) (test dijw=979) Normal GIANT PLATELETS (BEAKER) (test kaoa=139) Present POLYCHROMATOPHILLIC RBCS(BEAKER) (test bxyn=908) 1+ few ANISOCYTOSIS (BEAKER) (test jmfv=405) 1+ few ARTIFACT (CELLAVISION)(BEAKER) (test owzo=8045) Present PLATELET CONCENTRATION (CELLAVISION)(BEAKER) Adequate (test kqfb=2502) Received comment: User comments: Slide comments:[id number] 06:44:00 Test Item Value Reference Range Comments MAGNESIUM (BEAKER) (test 2.1 mg/dL 1.6-2.6 Specimen slightly hemolyzed tftf=529) [id number] 06:44:00 Test Item Value Reference Range Comments PHOSPHORUS (BEAKER) (test 5.0 mg/dL 2.3-4.7 Specimen slightly hemolyzed qjsj=991) BASIC METABOLIC [id number] 06:44:00 Test Item Value Reference Range Comments SODIUM (BEAKER) (test 138 meq/L 136-145 ldrn=578) POTASSIUM (BEAKER) (test 4.6 meq/L 3.5-5.1 Specimen slightly jakx=844) hemolyzed CHLORIDE (BEAKER) (test 99 meq/L 98-107 jyzx=673) CO2 (BEAKER) (test 30 meq/L 22-29 hlhl=499) BLOOD UREA NITROGEN 10 mg/dL 7-21 (BEAKER) (test ijub=086) CREATININE (BEAKER) (test 0.67 mg/dL 0.57-1.25 Specimen slightly pklo=443) hemolyzed GLUCOSE RANDOM (BEAKER) 87 mg/dL 70-105 (test pzgx=572) CALCIUM (BEAKER) (test 8.7 mg/dL 8.4-10.2 trea=416) EGFR (BEAKER) (test 127 mL/min/1.73 sq m ESTIMATED GFR IS NOT tdqf=4114) ACCURATE CREATININE CLEARANCE IN PREDICTING GLOMERULAR FILTRATION RATE. ESTIMATED GFR IS NOT APPLICABLE FOR DIALYSIS PATIENTS. [id number] 06:06:00 Test Item Value Reference Range Comments PROTIME (BEAKER) (test heuf=627) 15.6 seconds 11.7-14.7 INR (BEAKER) (test ajpe=620) 1.2 <=5.9 PARTIAL THROMBOPLASTIN TIME (BEAKER) (test 46.0 seconds 22.5-36.0 cyex=560) RECOMMENDED COUMADIN/WARFARIN INR THERAPY RANGESSTANDARD DOSE: 2.0 - 3.0 Includes: PROPHYLAXIS forvenous thrombosis, systemic embolization; TREATMENT for venous thrombosis and/or pulmonary embolus.HIGH RISK: Target INR is 2.5-3.5 for patients with mechanical heart valves.SPUTUM CULTURE + GRAM [id number] 14:44:00 Test Item Value Reference Range Comments CULTURE (BEAKER) (test Oropharyngeal contamination, ewnz=2114) specimen rejected. Recollect requested. GRAM STAIN RESULT (BEAKER) <1+ WBCs (test moai=0560) GRAM STAIN RESULT (BEAKER) >25 epithelial cells (test qdxl=81216) GRAM STAIN RESULT (BEAKER) <1+ gram positive rods (test zasf=67346) RAD, CHEST, 1 VIEW, NON [id number] 13:59:00Reason for exam:-> leukocytosis in setting of [...] MDReport Verified Date/Time: 07/19/2018 13:59:21 Reading Location: [address] Consult Reading Room URINALYSIS W/ REFLEX URINE [id number] 11:14:00 Test Item Value Reference Range Comments COLOR (BEAKER) (test wmfa=446) Light Yellow CLARITY (BEAKER) (test mdxb=224) Clear SPECIFIC GRAVITY UA (BEAKER) (test ccrs=927) 1.013 1.001-1.035 PH UA (BEAKER) (test kpeb=709) 6.0 5.0-8.0 PROTEIN UA (BEAKER) (test tqyv=867) Negative Negative GLUCOSE UA (BEAKER) (test ovhp=217) Negative Negative KETONES UA (BEAKER) (test bwtr=446) Negative Negative BILIRUBIN UA (BEAKER) (test uqvz=170) Negative Negative BLOOD UA (BEAKER) (test bdhy=273) Trace Negative NITRITE UA (BEAKER) (test xwmf=233) Negative Negative LEUKOCYTE ESTERASE UA (BEAKER) (test yccl=833) Small Negative UROBILINOGEN UA (BEAKER) (test amzj=106) 0.2 mg/dL 0.2-1.0 RBC UA (BEAKER) (test xpwl=535) 2 /HPF WBC UA (BEAKER) (test lkvj=598) 15 /HPF MUCUS (BEAKER) (test tsuh=4775) Occasional HYALINE CASTS (BEAKER) (test cqac=499) 2 /LPF SOURCE(BEAKER) (test rztm=9184) POCT-GLUCOSE [id number] 06:46:00 Test Item Value Reference Range Comments POC-GLUCOSE METER (BEAKER) 102 mg/dL 70-110 TESTED AT [facility] [address] [facility] (test bfke=0215) [facility] [address] [id number] 04:52:00 Test Item Value Reference Range Comments PHOSPHORUS (BEAKER) (test akgw=275) 4.1 mg/dL 2.3-4.7 [id number] 04:52:00 Test Item Value Reference Range Comments MAGNESIUM (BEAKER) (test zhqv=361) 1.8 mg/dL 1.6-2.6 BASIC METABOLIC [id number] 04:52:00 Test Item Value Reference Range Comments SODIUM (BEAKER) (test 138 meq/L 136-145 anzo=521) POTASSIUM (BEAKER) (test 3.7 meq/L 3.5-5.1 bnjq=846) CHLORIDE (BEAKER) (test 101 meq/L 98-107 zrdf=322) CO2 (BEAKER) (test 26 meq/L 22-29 cjcm=440) BLOOD UREA NITROGEN 10 mg/dL 7-21 (BEAKER) (test hmin=147) CREATININE (BEAKER) (test 0.67 mg/dL 0.57-1.25 dbea=848) GLUCOSE RANDOM (BEAKER) 111 mg/dL 70-105 (test nxbu=698) CALCIUM (BEAKER) (test 8.5 mg/dL 8.4-10.2 mrgb=280) EGFR (BEAKER) (test 127 mL/min/1.73 sq m ESTIMATED GFR IS NOT tooy=1191) ACCURATE CREATININE CLEARANCE IN PREDICTING GLOMERULAR FILTRATION RATE. ESTIMATED GFR IS NOT APPLICABLE FOR DIALYSIS PATIENTS. CBC W/PLT COUNT & AUTO [id number] 04:25:00 Test Item Value Reference Range Comments WHITE BLOOD CELL COUNT (BEAKER) (test mpbp=648) 13.6 K/ L 3.5-10.5 RED BLOOD CELL COUNT (BEAKER) (test zjjw=660) 3.58 M/ L 4.63-6.08 HEMOGLOBIN (BEAKER) (test afzv=705) 10.8 GM/DL 13.7-17.5 HEMATOCRIT (BEAKER) (test ufiv=616) 34.8 % 40.1-51.0 MEAN CORPUSCULAR VOLUME (BEAKER) (test xdbk=456) 97.2 fL 79.0-92.2 MEAN CORPUSCULAR HEMOGLOBIN (BEAKER) (test 30.2 pg 25.7-32.2 tjcw=644) MEAN CORPUSCULAR HEMOGLOBIN CONC (BEAKER) (test 31.0 GM/DL 32.3-36.5 dbyt=300) RED CELL DISTRIBUTION WIDTH (BEAKER) (test 15.1 % 11.6-14.4 ycih=095) PLATELET COUNT (BEAKER) (test dkam=837) 392 K/CU MM 150-450 MEAN PLATELET VOLUME (BEAKER) (test crgs=166) 10.0 fL 9.4-12.4 NUCLEATED RED BLOOD CELLS (BEAKER) (test 0 /100 WBC 0-0 txic=890) NEUTROPHILS RELATIVE PERCENT (BEAKER) (test 78 % zufy=936) LYMPHOCYTES RELATIVE PERCENT (BEAKER) (test 5 % akdk=620) MONOCYTES RELATIVE PERCENT (BEAKER) (test 10 % kqtp=489) EOSINOPHILS RELATIVE PERCENT (BEAKER) (test 2 % ixby=920) BASOPHILS RELATIVE PERCENT (BEAKER) (test 1 % iwcz=859) NEUTROPHILS ABSOLUTE COUNT (BEAKER) (test 10.68 K/ L 1.78-5.38 ckhs=647) LYMPHOCYTES ABSOLUTE COUNT (BEAKER) (test 0.68 K/ L 1.32-3.57 oqyz=046) MONOCYTES ABSOLUTE COUNT (BEAKER) (test 1.40 K/ L 0.30-0.82 chpm=822) EOSINOPHILS ABSOLUTE COUNT (BEAKER) (test 0.31 K/ L 0.04-0.54 buto=209) BASOPHILS ABSOLUTE COUNT (BEAKER) (test 0.08 K/ L 0.01-0.08 rajd=030) IMMATURE GRANULOCYTES-RELATIVE PERCENT (BEAKER) 3 % 0-1 (test qjmp=8053) [id number] 04:11:00 Test Item Value Reference Range Comments PROTIME (BEAKER) (test pqbi=519) 15.8 seconds 11.7-14.7 INR (BEAKER) (test sgyp=684) 1.2 <=5.9 PARTIAL THROMBOPLASTIN TIME (BEAKER) (test 48.2 seconds 22.5-36.0 qzoz=973) RECOMMENDED COUMADIN/WARFARIN INR THERAPY RANGESSTANDARD DOSE: 2.0 - 3.0 Includes: PROPHYLAXIS forvenous thrombosis, systemic embolization; TREATMENT for venous thrombosis and/or pulmonary embolus.HIGH RISK: Target INR is 2.5-3.5 for patients with mechanical heart valves.POCT-GLUCOSE [id number] 00:11:00 Test Item Value Reference Range Comments POC-GLUCOSE METER (BEAKER) 76 mg/dL 70-110 TESTED AT [address] (test ufam=2940) [place] [address] POCT-GLUCOSE [id number] 17:53:00 Test Item Value Reference Range Comments POC-GLUCOSE METER (BEAKER) 94 mg/dL 70-110 TESTED AT [address] (test mlez=7237) [place] [address] T4, [id number] 11:41:00 Test Item Value Reference Range Comments FREE T4 (BEAKER) (test zrsk=860) 0.90 ng/dL 0.70-1.48 POCT-GLUCOSE [id number] 11:35:00 Test Item Value Reference Range Comments POC-GLUCOSE METER (BEAKER) 103 mg/dL 70-110 TESTED AT [address] (test rqxb=3470) [place] [address] TSH/FREE T4 IF [id number] 10:50:00 Test Item Value Reference Range Comments THYROID STIMULATING HORMONE (BEAKER) (test 14.67 uIU/mL 0.35-4.94 fyfo=189) POCT-GLUCOSE [id number] 06:42:00 Test Item Value Reference Range Comments POC-GLUCOSE METER (BEAKER) 111 mg/dL 70-110 TESTED AT [address] (test uhxd=3733) [place] [address] CBC W/PLT COUNT & AUTO [id number] 05:20:00 Test Item Value Reference Range Comments WHITE BLOOD CELL COUNT (BEAKER) (test gmod=739) 11.4 K/ L 3.5-10.5 RED BLOOD CELL COUNT (BEAKER) (test ehiy=495) 3.40 M/ L 4.63-6.08 HEMOGLOBIN (BEAKER) (test jiya=964) 10.3 GM/DL 13.7-17.5 HEMATOCRIT (BEAKER) (test qvbq=404) 33.6 % 40.1-51.0 MEAN CORPUSCULAR VOLUME (BEAKER) (test yohd=944) 98.8 fL 79.0-92.2 MEAN CORPUSCULAR HEMOGLOBIN (BEAKER) (test 30.3 pg 25.7-32.2 zrop=664) MEAN CORPUSCULAR HEMOGLOBIN CONC (BEAKER) (test 30.7 GM/DL 32.3-36.5 uhbb=542) RED CELL DISTRIBUTION WIDTH (BEAKER) (test 15.3 % 11.6-14.4 jsrf=957) PLATELET COUNT (BEAKER) (test jjfy=530) 365 K/CU MM 150-450 MEAN PLATELET VOLUME (BEAKER) (test bkih=627) 10.2 fL 9.4-12.4 NUCLEATED RED BLOOD CELLS (BEAKER) (test 0 /100 WBC 0-0 zpnz=104) NEUTROPHILS RELATIVE PERCENT (BEAKER) (test 80 % fpyo=714) LYMPHOCYTES RELATIVE PERCENT (BEAKER) (test 6 % dhph=358) MONOCYTES RELATIVE PERCENT (BEAKER) (test 9 % ihpa=120) EOSINOPHILS RELATIVE PERCENT (BEAKER) (test 3 % vixw=580) BASOPHILS RELATIVE PERCENT (BEAKER) (test 0 % nlbv=758) NEUTROPHILS ABSOLUTE COUNT (BEAKER) (test 9.06 K/ L 1.78-5.38 fawd=438) LYMPHOCYTES ABSOLUTE COUNT (BEAKER) (test 0.72 K/ L 1.32-3.57 nlnz=784) MONOCYTES ABSOLUTE COUNT (BEAKER) (test 1.06 K/ L 0.30-0.82 fwzk=948) EOSINOPHILS ABSOLUTE COUNT (BEAKER) (test 0.28 K/ L 0.04-0.54 sbwa=321) BASOPHILS ABSOLUTE COUNT (BEAKER) (test 0.05 K/ L 0.01-0.08 meer=540) IMMATURE GRANULOCYTES-RELATIVE PERCENT (BEAKER) 2 % 0-1 (test juqj=2695) [id number] 05:00:00 Test Item Value Reference Range Comments PHOSPHORUS (BEAKER) (test ccrl=350) 5.2 mg/dL 2.3-4.7 [id number] 05:00:00 Test Item Value Reference Range Comments MAGNESIUM (BEAKER) (test ddnt=494) 2.0 mg/dL 1.6-2.6 BASIC METABOLIC [id number] 05:00:00 Test Item Value Reference Range Comments SODIUM (BEAKER) (test 141 meq/L 136-145 liak=507) POTASSIUM (BEAKER) (test 3.7 meq/L 3.5-5.1 onpr=057) CHLORIDE (BEAKER) (test 102 meq/L 98-107 klsd=483) CO2 (BEAKER) (test 29 meq/L 22-29 iqim=696) BLOOD UREA NITROGEN 7 mg/dL 7-21 (BEAKER) (test ixmy=375) CREATININE (BEAKER) (test 0.68 mg/dL 0.57-1.25 qoba=383) GLUCOSE RANDOM (BEAKER) 114 mg/dL 70-105 (test mpmy=348) CALCIUM (BEAKER) (test 8.2 mg/dL 8.4-10.2 jies=329) EGFR (BEAKER) (test 124 mL/min/1.73 sq m ESTIMATED GFR IS NOT qjmq=5849) ACCURATE CREATININE CLEARANCE IN PREDICTING GLOMERULAR FILTRATION RATE. ESTIMATED GFR IS NOT APPLICABLE FOR DIALYSIS PATIENTS. [id number] 04:55:00 Test Item Value Reference Range Comments PROTIME (BEAKER) (test nkng=573) 15.2 seconds 11.7-14.7 INR (BEAKER) (test ylfm=572) 1.2 <=5.9 PARTIAL THROMBOPLASTIN TIME (BEAKER) (test 38.9 seconds 22.5-36.0 aeqz=713) RECOMMENDED COUMADIN/WARFARIN INR THERAPY RANGESSTANDARD DOSE: 2.0 - 3.0 Includes: PROPHYLAXIS forvenous thrombosis, systemic embolization; TREATMENT for venous thrombosis and/or pulmonary embolus.HIGH RISK: Target INR is 2.5-3.5 for patients with mechanical heart valves.CBC W/PLT COUNT & AUTO [id number] 08:47:00 Test Item Value Reference Range Comments WHITE BLOOD CELL COUNT (BEAKER) (test grjl=916) 13.2 K/ L 3.5-10.5 RED BLOOD CELL COUNT (BEAKER) (test wwos=404) 3.21 M/ L 4.63-6.08 HEMOGLOBIN (BEAKER) (test gxzl=475) 9.8 GM/DL 13.7-17.5 HEMATOCRIT (BEAKER) (test qjsa=346) 30.9 % 40.1-51.0 MEAN CORPUSCULAR VOLUME (BEAKER) (test epyo=882) 96.3 fL 79.0-92.2 MEAN CORPUSCULAR HEMOGLOBIN (BEAKER) (test 30.5 pg 25.7-32.2 vkjq=214) MEAN CORPUSCULAR HEMOGLOBIN CONC (BEAKER) (test 31.7 GM/DL 32.3-36.5 kgef=601) RED CELL DISTRIBUTION WIDTH (BEAKER) (test 15.2 % 11.6-14.4 qhyn=188) PLATELET COUNT (BEAKER) (test gzou=834) 310 K/CU MM 150-450 MEAN PLATELET VOLUME (BEAKER) (test goda=000) 10.1 fL 9.4-12.4 NUCLEATED RED BLOOD CELLS (BEAKER) (test 0 /100 WBC 0-0 xyxn=610) (CELLAVISION MANUAL DIFF)2018-07-17 08:47:00 Test Item Value Reference Range Comments NEUTROPHILS - REL (CELLAVISION)(BEAKER) (test 88 % cvoj=7417) LYMPHOCYTES - REL (CELLAVISION)(BEAKER) (test 2 % npph=1569) MONOCYTES - REL (CELLAVISION)(BEAKER) (test 5 % nifu=8389) EOSINOPHILS - REL (CELLAVISION)(BEAKER) (test 3 % djmx=9160) MYELOCYTES - REL (CELLAVISION)(BEAKER) (test 1 % 0-0 fvdd=5401) ATYPICAL LYMPHOCYTES - REL (CELLAVISION)(BEAKER) 1 % 0-0 (test ogtq=4937) NEUTROPHILS - ABS (CELLAVISION)(BEAKER) (test 11.62 K/ul 1.78-5.38 spla=7371) LYMPHOCYTES - ABS (CELLAVISION)(BEAKER) (test 0.26 K/ul 1.32-3.57 hvvu=9842) MONOCYTES - ABS (CELLAVISION)(BEAKER) (test 0.66 K/uL 0.30-0.82 stkj=6859) EOSINOPHILS - ABS (CELLAVISION)(BEAKER) (test 0.40 K/uL 0.04-0.54 gjme=7590) MYELOCYTES-ABS (CELLAVISION)(BEAKER) (test 0.13 K/uL 0.00-0.00 wgyb=3661) ATYPICAL LYMPHOCYTES - ABS (CELLAVISION)(BEAKER) 0.13 K/uL 0.00-0.00 (test gngn=8614) TOTAL COUNTED (BEAKER) (test otlj=5785) 100 WBC MORPHOLOGY (BEAKER) (test vgnj=442) Normal PLT MORPHOLOGY (BEAKER) (test fhsg=750) Normal ANISOCYTOSIS (BEAKER) (test bzwh=484) 2+ moderate MICROCYTES (BEAKER) (test phbx=117) 2+ moderate ARTIFACT (CELLAVISION)(BEAKER) (test jexi=8432) Present PLATELET CONCENTRATION (CELLAVISION)(BEAKER) Adequate (test cdpb=6802) Received comment: User comments: Slide comments:POCT-GLUCOSE [id number] 06: 41:00 Test Item Value Reference Range Comments POC-GLUCOSE METER (BEAKER) 115 mg/dL 70-110 TESTED AT [address] (test icqc=3667) [facility] [address] BASIC METABOLIC [id number] 04:53:00 Test Item Value Reference Range Comments SODIUM (BEAKER) (test 138 meq/L 136-145 ssuz=772) POTASSIUM (BEAKER) (test 3.4 meq/L 3.5-5.1 kwci=023) CHLORIDE (BEAKER) (test 104 meq/L 98-107 kdhl=510) CO2 (BEAKER) (test 25 meq/L 22-29 gqur=129) BLOOD UREA NITROGEN 7 mg/dL 7-21 (BEAKER) (test kzas=132) CREATININE (BEAKER) (test 0.68 mg/dL 0.57-1.25 grqb=253) GLUCOSE RANDOM (BEAKER) 173 mg/dL 70-105 (test qavh=557) CALCIUM (BEAKER) (test 7.6 mg/dL 8.4-10.2 nnyu=024) EGFR (BEAKER) (test 124 mL/min/1.73 sq m ESTIMATED GFR IS NOT mvpu=1953) ACCURATE CREATININE CLEARANCE IN PREDICTING GLOMERULAR FILTRATION RATE. ESTIMATED GFR IS NOT APPLICABLE FOR DIALYSIS PATIENTS. [id number] 04:37:00 Test Item Value Reference Range Comments PHOSPHORUS (BEAKER) (test lrkv=897) 3.9 mg/dL 2.3-4.7 [id number] 04:37:00 Test Item Value Reference Range Comments MAGNESIUM (BEAKER) (test sjxc=951) 1.6 mg/dL 1.6-2.6 [id number] 04:37:00 Test Item Value Reference Range Comments ALBUMIN (BEAKER) (test xxib=9221) 3.2 g/dL 3.5-5.0 [id number] 04:24:00 Test Item Value Reference Range Comments PROTIME (BEAKER) (test nagt=851) 15.9 seconds 11.7-14.7 INR (BEAKER) (test wwup=892) 1.2 <=5.9 PARTIAL THROMBOPLASTIN TIME (BEAKER) (test 51.7 seconds 22.5-36.0 clxa=553) RECOMMENDED COUMADIN/WARFARIN INR THERAPY RANGESSTANDARD DOSE: 2.0 - 3.0 Includes: PROPHYLAXIS forvenous thrombosis, systemic embolization; TREATMENT for venous thrombosis and/or pulmonary embolus.HIGH RISK: Target INR is 2.5-3.5 for patients with mechanical heart valves.RAD, CHEST, 1 VIEW, NON [id number] 03:56:00Reason for exam:->atelectasisShould this be performed at the bedside?->YesFINAL REPORT CLINICAL INDICATION: Support lines. Comparison: 07/16/2018 The cardiomediastinal contours are stable. The lung volumes remain low. Bibasilar parenchymal and pleural opacities are similar to previous. There is no pneumothorax. A tracheostomy tube is stable in position. A pigtail catheter overlies the left upper quadrant, probably a G- tube. Signed: Jakob Garcia MDReport Verified Date/Time: 07/17/2018 03:56:49 Reading Location: [address] Reading Room POCT-GLUCOSE [id number] 00: 56:00 Test Item Value Reference Range Comments POC-GLUCOSE METER (BEAKER) 115 mg/dL 70-110 TESTED AT [facility] [address] [facility] (test erdv=4202) [facility] [address] POCT-GLUCOSE [id number] 18:10:00 Test Item Value Reference Range Comments POC-GLUCOSE METER (BEAKER) 116 mg/dL 70-110 TESTED AT [address] (test wdbv=7926) [facility] [address] POCT-GLUCOSE [id number] 13:10:00 Test Item Value Reference Range Comments POC-GLUCOSE METER (BEAKER) 115 mg/dL 70-110 TESTED AT [address] (test lknl=1569) [place] [address] RAD, CHEST, 1 VIEW, NON [id number] 08:20:00Reason for exam:-> atelectasisShould this be performed [...] Gaudencio Barrett Verified Date/Time: 2018 08:20:57 ReadingLocation: [facility] [id number] Ortho Consult Reading Room TROPONIN [id number] 08:03:00 Test Item Value Reference Range Comments TROPONIN I (BEAKER) (test ohxk=246) 0.01 ng/mL 0.00-0.03 Troponin I (TnI) levels [...] acute neurological disease, and persistent tachyarrhythmia.BLOOD GAS, [id number] 07:42:00 Test Item Value Reference Range Comments PH ARTERIAL (BEAKER) (test kgva=859) 7.42 7.35-7.45 PCO2 ARTERIAL (BEAKER) (test ouvv=654) 40 mmHg 35-45 PO2 ARTERIAL (BEAKER) (test byot=631) 77 mmHg 80-90 O2 SATURATION ARTERIAL (BEAKER) (test thzl=614) 95.8 % 96.0-97.0 HCO3 ARTERIAL (BEAKER) (test vmrf=740) 25 mmol/L 21-29 BASE EXCESS ARTERIAL (BEAKER) (test teuj=453) 0.9 mmol/L -2.0-3.0 PATIENT TEMPERATURE (BEAKER) (test wqzy=4892) 36.8 C FIO2 (BEAKER) (test ppio=0400) 44.0 % POCT-GLUCOSE [id number] 06:03:00 Test Item Value Reference Range Comments POC-GLUCOSE METER (BEAKER) 120 mg/dL 70-110 TESTED AT [address] (test cxzz=3458) [facility] [address] CBC W/PLT COUNT & AUTO [id number] 04:00:00 Test Item Value Reference Range Comments WHITE BLOOD CELL COUNT (BEAKER) (test zsqi=380) 20.3 K/ L 3.5-10.5 RED BLOOD CELL COUNT (BEAKER) (test flpv=447) 3.66 M/ L 4.63-6.08 HEMOGLOBIN (BEAKER) (test yxau=135) 11.3 GM/DL 13.7-17.5 HEMATOCRIT (BEAKER) (test khjn=736) 36.0 % 40.1-51.0 MEAN CORPUSCULAR VOLUME (BEAKER) (test nxzq=717) 98.4 fL 79.0-92.2 MEAN CORPUSCULAR HEMOGLOBIN (BEAKER) (test 30.9 pg 25.7-32.2 wzfb=830) MEAN CORPUSCULAR HEMOGLOBIN CONC (BEAKER) (test 31.4 GM/DL 32.3-36.5 weae=358) RED CELL DISTRIBUTION WIDTH (BEAKER) (test 15.0 % 11.6-14.4 nhxq=798) PLATELET COUNT (BEAKER) (test movh=873) 319 K/CU MM 150-450 MEAN PLATELET VOLUME (BEAKER) (test lgua=035) 10.5 fL 9.4-12.4 NUCLEATED RED BLOOD CELLS (BEAKER) (test 0 /100 WBC 0-0 jlmi=780) NEUTROPHILS RELATIVE PERCENT (BEAKER) (test 86 % hgrv=808) LYMPHOCYTES RELATIVE PERCENT (BEAKER) (test 4 % vupa=923) MONOCYTES RELATIVE PERCENT (BEAKER) (test 9 % okjy=962) EOSINOPHILS RELATIVE PERCENT (BEAKER) (test 0 % mcbc=437) BASOPHILS RELATIVE PERCENT (BEAKER) (test 0 % fcuq=180) NEUTROPHILS ABSOLUTE COUNT (BEAKER) (test 17.32 K/ L 1.78-5.38 eagp=220) LYMPHOCYTES ABSOLUTE COUNT (BEAKER) (test 0.72 K/ L 1.32-3.57 woom=999) MONOCYTES ABSOLUTE COUNT (BEAKER) (test 1.82 K/ L 0.30-0.82 ttdq=059) EOSINOPHILS ABSOLUTE COUNT (BEAKER) (test 0.07 K/ L 0.04-0.54 fvnj=165) BASOPHILS ABSOLUTE COUNT (BEAKER) (test 0.07 K/ L 0.01-0.08 xrku=146) IMMATURE GRANULOCYTES-RELATIVE PERCENT (BEAKER) 1 % 0-1 (test ndrg=5563) [id number] 03:38:00 Test Item Value Reference Range Comments MAGNESIUM (BEAKER) (test 2.0 mg/dL 1.6-2.6 Specimen slightly hemolyzed hmto=675) [id number] 03:38:00 Test Item Value Reference Range Comments PHOSPHORUS (BEAKER) (test 3.6 mg/dL 2.3-4.7 Specimen slightly hemolyzed apaj=168) BASIC METABOLIC [id number] 03:38:00 Test Item Value Reference Range Comments SODIUM (BEAKER) (test 140 meq/L 136-145 hftw=664) POTASSIUM (BEAKER) (test 4.0 meq/L 3.5-5.1 Specimen slightly bsul=826) hemolyzed CHLORIDE (BEAKER) (test 105 meq/L 98-107 adce=505) CO2 (BEAKER) (test 25 meq/L 22-29 kolg=065) BLOOD UREA NITROGEN 5 mg/dL 7-21 (BEAKER) (test znpz=177) CREATININE (BEAKER) (test 0.73 mg/dL 0.57-1.25 Specimen slightly ojzl=743) hemolyzed GLUCOSE RANDOM (BEAKER) 129 mg/dL 70-105 (test rfio=398) CALCIUM (BEAKER) (test 8.5 mg/dL 8.4-10.2 puvw=808) EGFR (BEAKER) (test 115 mL/min/1.73 sq m ESTIMATED GFR IS NOT yweh=4302) ACCURATE CREATININE CLEARANCE IN PREDICTING GLOMERULAR FILTRATION RATE. ESTIMATED GFR IS NOT APPLICABLE FOR DIALYSIS PATIENTS. [id number] 03:38:00 Test Item Value Reference Range Comments ALBUMIN (BEAKER) (test 3.9 g/dL 3.5-5.0 Specimen slightly hemolyzed dule=7777) [id number] 03:31:00 Test Item Value Reference Range Comments PROTIME (BEAKER) (test zgiw=385) 15.5 seconds 11.7-14.7 INR (BEAKER) (test gqsr=227) 1.2 <=5.9 PARTIAL THROMBOPLASTIN TIME (BEAKER) (test 34.5 seconds 22.5-36.0 anfv=151) RECOMMENDED COUMADIN/WARFARIN INR THERAPY RANGESSTANDARD DOSE: 2.0 - 3.0 Includes: PROPHYLAXIS forvenous thrombosis, systemic embolization; TREATMENT for venous thrombosis and/or pulmonary embolus.HIGH RISK: Target INR is 2.5-3.5 for patients with mechanical heart valves.POCT-GLUCOSE [id number] 23:39:00 Test Item Value Reference Range Comments POC-GLUCOSE METER (BEAKER) 121 mg/dL 70-110 TESTED AT [address] (test zrxk=4757) [facility] [address] POCT-GLUCOSE [id number] 18:25:00 Test Item Value Reference Range Comments POC-GLUCOSE METER (BEAKER) 112 mg/dL 70-110 TESTED AT [facility] [address] [facility] (test mory=2180) [facility] [address] T4, [id number] 12:56:00 Test Item Value Reference Range Comments FREE T4 (BEAKER) (test hpax=524) 1.17 ng/dL 0.70-1.48 POCT-GLUCOSE [id number] 11:35:00 Test Item Value Reference Range Comments POC-GLUCOSE METER (BEAKER) 143 mg/dL 70-110 TESTED AT [facility] [address] (test zkgr=2334) [place] [address] CBC W/PLT COUNT & AUTO [id number] 07:50:00 Test Item Value Reference Range Comments WHITE BLOOD CELL COUNT (BEAKER) (test uvcu=717) 24.1 K/ L 3.5-10.5 RED BLOOD CELL COUNT (BEAKER) (test hnhm=428) 3.75 M/ L 4.63-6.08 HEMOGLOBIN (BEAKER) (test jvpo=572) 11.7 GM/DL 13.7-17.5 HEMATOCRIT (BEAKER) (test znrj=817) 35.7 % 40.1-51.0 MEAN CORPUSCULAR VOLUME (BEAKER) (test anvx=490) 95.2 fL 79.0-92.2 MEAN CORPUSCULAR HEMOGLOBIN (BEAKER) (test 31.2 pg 25.7-32.2 gsrh=716) MEAN CORPUSCULAR HEMOGLOBIN CONC (BEAKER) (test 32.8 GM/DL 32.3-36.5 knnw=372) RED CELL DISTRIBUTION WIDTH (BEAKER) (test 14.8 % 11.6-14.4 vqnp=841) PLATELET COUNT (BEAKER) (test gfcz=702) 334 K/CU MM 150-450 MEAN PLATELET VOLUME (BEAKER) (test otmi=879) 10.3 fL 9.4-12.4 NUCLEATED RED BLOOD CELLS (BEAKER) (test 0 /100 WBC 0-0 msvw=458) (CELLAVISION MANUAL DIFF)2018-07-15 07:50:00 Test Item Value Reference Range Comments NEUTROPHILS - REL (CELLAVISION)(BEAKER) (test 87 % pqso=9382) LYMPHOCYTES - REL (CELLAVISION)(BEAKER) (test 3 % qdhh=0984) MONOCYTES - REL (CELLAVISION)(BEAKER) (test 5 % pftp=0402) METAMYELOCYTES - REL (CELLAVISION)(BEAKER) (test 1 % 0-0 udfm=0788) MYELOCYTES - REL (CELLAVISION)(BEAKER) (test 1 % 0-0 yfed=1495) BANDS - REL (CELLAVISION)(BEAKER) (test 2 % 0-10 csga=7101) ATYPICAL LYMPHOCYTES - REL (CELLAVISION)(BEAKER) 1 % 0-0 (test rifg=9548) NEUTROPHILS - ABS (CELLAVISION)(BEAKER) (test 20.97 K/ul 1.78-5.38 ifvd=7831) LYMPHOCYTES - ABS (CELLAVISION)(BEAKER) (test 0.72 K/ul 1.32-3.57 znqs=4373) MONOCYTES - ABS (CELLAVISION)(BEAKER) (test 1.21 K/uL 0.30-0.82 vjfz=7515) METAMYELOCYTES - ABS (CELLAVISION)(BEAKER) (test 0.24 K/uL 0.00-0.00 ftkx=6984) MYELOCYTES-ABS (CELLAVISION)(BEAKER) (test 0.24 K/uL 0.00-0.00 joch=6058) BANDS - ABS (CELLAVISION)(BEAKER) (test 0.48 K/uL 0.00-0.80 ndkm=5986) ATYPICAL LYMPHOCYTES - ABS (CELLAVISION)(BEAKER) 0.24 K/uL 0.00-0.00 (test zlfn=2784) TOTAL COUNTED (BEAKER) (test hvsv=5939) 100 WBC MORPHOLOGY (BEAKER) (test aqfb=234) Normal PLT MORPHOLOGY (BEAKER) (test kwfn=127) Normal ANISOCYTOSIS (BEAKER) (test gxyb=423) 2+ moderate MICROCYTES (BEAKER) (test izbb=254) 2+ moderate ARTIFACT (CELLAVISION)(BEAKER) (test gopw=7808) Present PLATELET CONCENTRATION (CELLAVISION)(BEAKER) Adequate (test wlzm=4975) Received comment: User comments: Slide comments:RAD, CHEST, 1 VIEW, NON [id number] -04-16 05:48:00Reason for exam:->postop laryngectomy with trachShould [...] [place] Verified Date/Time: 2018 05:48:22 Reading Location: [address] Neuro Reading Room POCT-GLUCOSE [id number] 05:47:00 Test Item Value Reference Range Comments POC-GLUCOSE METER (BEAKER) 177 mg/dL 70-110 TESTED AT [facility] [address] [facility] (test fqhj=8174) [facility] [address] [id number] 04:29:00 Test Item Value Reference Range Comments PHOSPHORUS (BEAKER) (test zasr=935) 2.3 mg/dL 2.3-4.7 [id number] 04:29:00 Test Item Value Reference Range Comments MAGNESIUM (BEAKER) (test zdcr=948) 1.7 mg/dL 1.6-2.6 BASIC METABOLIC [id number] 04:29:00 Test Item Value Reference Range Comments SODIUM (BEAKER) (test 136 meq/L 136-145 bpkm=694) POTASSIUM (BEAKER) (test 3.7 meq/L 3.5-5.1 cqxr=905) CHLORIDE (BEAKER) (test 103 meq/L 98-107 ojio=638) CO2 (BEAKER) (test 24 meq/L 22-29 jfhd=262) BLOOD UREA NITROGEN 7 mg/dL 7-21 (BEAKER) (test xuum=071) CREATININE (BEAKER) (test 0.73 mg/dL 0.57-1.25 gbrh=861) GLUCOSE RANDOM (BEAKER) 179 mg/dL 70-105 (test bxua=573) CALCIUM (BEAKER) (test 9.2 mg/dL 8.4-10.2 zhfb=965) EGFR (BEAKER) (test 115 mL/min/1.73 sq m ESTIMATED GFR IS NOT dzhh=0342) ACCURATE CREATININE CLEARANCE IN PREDICTING GLOMERULAR FILTRATION RATE. ESTIMATED GFR IS NOT APPLICABLE FOR DIALYSIS PATIENTS. [id number] 04:29:00 Test Item Value Reference Range Comments ALBUMIN (BEAKER) (test cjls=4228) 3.8 g/dL 3.5-5.0 [id number] 04:22:00 Test Item Value Reference Range Comments PROTIME (BEAKER) (test wrud=391) 14.5 seconds 11.7-14.7 INR (BEAKER) (test cdro=786) 1.1 <=5.9 PARTIAL THROMBOPLASTIN TIME (BEAKER) (test 42.0 seconds 22.5-36.0 knqq=560) RECOMMENDED COUMADIN/WARFARIN INR THERAPY RANGESSTANDARD DOSE: 2.0 - 3.0 Includes: PROPHYLAXIS forvenous thrombosis, systemic embolization; TREATMENT for venous thrombosis and/or pulmonary embolus.HIGH RISK: Target INR is 2.5-3.5 for patients with mechanical heart valves.POCT-GLUCOSE [id number] 23:55:00 Test Item Value Reference Range Comments POC-GLUCOSE METER (BEAKER) 159 mg/dL 70-110 TESTED AT [facility] [address] [place] [address] (test xtui=3007) [facility] [address] [id number] 19:41:00 Test Item Value Reference Range Comments THYROID STIMULATING HORMONE (BEAKER) (test 6.82 uIU/mL 0.35-4.94 mlyg=187) [id number] 19:26:00 Test Item Value Reference Range Comments PHOSPHORUS (BEAKER) (test dxpw=432) 4.9 mg/dL 2.3-4.7 Postop labsPostop labsPostop labsPostop [id number] 19:26:00 Test Item Value Reference Range Comments MAGNESIUM (BEAKER) (test bdjz=917) 1.9 mg/dL 1.6-2.6 Postop labsPostop labsPostop labsPostop labsBASIC METABOLIC [id number] 19: 26:00 Test Item Value Reference Range Comments SODIUM (BEAKER) (test 140 meq/L 136-145 dixo=639) POTASSIUM (BEAKER) (test 4.6 meq/L 3.5-5.1 chrw=144) CHLORIDE (BEAKER) (test 107 meq/L 98-107 orxv=240) CO2 (BEAKER) (test 26 meq/L 22-29 teqp=073) BLOOD UREA NITROGEN 8 mg/dL 7-21 (BEAKER) (test vddw=801) CREATININE (BEAKER) (test 0.77 mg/dL 0.57-1.25 xucl=189) GLUCOSE RANDOM (BEAKER) 109 mg/dL 70-105 (test zuzo=969) CALCIUM (BEAKER) (test 9.4 mg/dL 8.4-10.2 pwcu=974) EGFR (BEAKER) (test 108 mL/min/1.73 sq m ESTIMATED GFR IS NOT npru=4811) ACCURATE CREATININE CLEARANCE IN PREDICTING GLOMERULAR FILTRATION RATE. ESTIMATED GFR IS NOT APPLICABLE FOR DIALYSIS PATIENTS. Postop labsPostop labsPostop labsPostop [id number] 19:26:00 Test Item Value Reference Range Comments ALBUMIN (BEAKER) (test qgqh=2203) 3.9 g/dL 3.5-5.0 Postop labsPostop labsPostop labsPostop [id number] 19:24:00 Test Item Value Reference Range Comments PREALBUMIN (BEAKER) (test 17 mg/dL 14-45 Specimen slightly hemolyzed udjf=731) PTH, [id number] 19:23:00 Test Item Value Reference Range Comments PARATHYROID HORMONE INTACT (BEAKER) (test 16.1 pg/mL 8.5-72.5 yvxq=137) Postop LabsCBC W/PLT COUNT & AUTO [id number] 18:58:00 Test Item Value Reference Range Comments WHITE BLOOD CELL COUNT (BEAKER) (test simp=368) 13.3 K/ L 3.5-10.5 RED BLOOD CELL COUNT (BEAKER) (test yacz=282) 3.50 M/ L 4.63-6.08 HEMOGLOBIN (BEAKER) (test fcht=877) 10.8 GM/DL 13.7-17.5 HEMATOCRIT (BEAKER) (test cium=532) 34.1 % 40.1-51.0 MEAN CORPUSCULAR VOLUME (BEAKER) (test mzds=822) 97.4 fL 79.0-92.2 MEAN CORPUSCULAR HEMOGLOBIN (BEAKER) (test 30.9 pg 25.7-32.2 qrff=925) MEAN CORPUSCULAR HEMOGLOBIN CONC (BEAKER) (test 31.7 GM/DL 32.3-36.5 kapm=819) RED CELL DISTRIBUTION WIDTH (BEAKER) (test 15.1 % 11.6-14.4 gxtw=550) PLATELET COUNT (BEAKER) (test lton=517) 278 K/CU MM 150-450 MEAN PLATELET VOLUME (BEAKER) (test zlyb=910) 9.5 fL 9.4-12.4 NUCLEATED RED BLOOD CELLS (BEAKER) (test 0 /100 WBC 0-0 kevg=778) NEUTROPHILS RELATIVE PERCENT (BEAKER) (test 84 % kxhg=628) LYMPHOCYTES RELATIVE PERCENT (BEAKER) (test 6 % kxvr=868) MONOCYTES RELATIVE PERCENT (BEAKER) (test 8 % xpgi=091) EOSINOPHILS RELATIVE PERCENT (BEAKER) (test 1 % hzoi=485) BASOPHILS RELATIVE PERCENT (BEAKER) (test 0 % mvwi=312) NEUTROPHILS ABSOLUTE COUNT (BEAKER) (test 11.15 K/ L 1.78-5.38 trnc=171) LYMPHOCYTES ABSOLUTE COUNT (BEAKER) (test 0.73 K/ L 1.32-3.57 fjqd=525) MONOCYTES ABSOLUTE COUNT (BEAKER) (test 1.04 K/ L 0.30-0.82 lzex=259) EOSINOPHILS ABSOLUTE COUNT (BEAKER) (test 0.15 K/ L 0.04-0.54 vwsf=068) BASOPHILS ABSOLUTE COUNT (BEAKER) (test 0.05 K/ L 0.01-0.08 xqus=871) IMMATURE GRANULOCYTES-RELATIVE PERCENT (BEAKER) 1 % 0-1 (test kbxi=2774) BLOOD GAS, [id number] 15:31:00 Test Item Value Reference Range Comments PH ARTERIAL (BEAKER) (test yjqw=459) 7.37 7.35-7.45 PCO2 ARTERIAL (BEAKER) (test crfd=359) 46 mmHg 35-45 PO2 ARTERIAL (BEAKER) (test kyva=350) 273 mmHg 80-90 O2 SATURATION ARTERIAL (BEAKER) (test oaoz=919) 99.6 % 96.0-97.0 HCO3 ARTERIAL (BEAKER) (test wiww=631) 26 mmol/L 21-29 BASE EXCESS ARTERIAL (BEAKER) (test gtsz=357) 0.4 mmol/L -2.0-3.0 PATIENT TEMPERATURE (BEAKER) (test gova=9635) 37.0 C FIO2 (BEAKER) (test lhbd=3312) 100.0 % HGB/HCT (H&H) - STAT [id number] 15:31:00 Test Item Value Reference Range Comments HEMOGLOBIN (BEAKER) (test vjqx=006) 11.0 g/dL 13.0-16.8 HEMATOCRIT (BEAKER) (test nnta=638) 32.0 % 40.0-50.0 GLUCOSE-STAT [id number] 15:30:00 Test Item Value Reference Range Comments GLUCOSE RANDOM (BEAKER) (test ioji=270) 87 mg/dL 70-110 SODIUM NA-STAT [id number] 15:30:00 Test Item Value Reference Range Comments SODIUM (BEAKER) (test uhuv=687) 137 meq/L 135-148 POTASSIUM-STAT [id number] 15:30:00 Test Item Value Reference Range Comments POTASSIUM (BEAKER) (test wyqa=427) 4.0 meq/L 3.6-5.5 ANG, INSERTION G TUBE, W/ [id number] 14:18:00Reason for exam:-> Gastrostomy tubeFINAL REPORT Fluoroscopic guided gastrostomy tube placement, 07/11/2018. Clinical History: Laryngeal cancer. Modality: Fluoroscopy. [employer] De[employer]er: Jack Lima MD. Manager Er: Dilip Vivas MD. Conscious sedation: 2.0 mg [...] After the tract was dilated, a 14 [place]ian catheter was placed into the stomach. The [...] Verified Date/Time: 07/11/2018 14:18 :50 Reading Location: [place] [address] Angio Body Reading Room Electronically signed by: JACK Rose 07/11/2018 02:18 PMTSH/FREE T4 IF [id number] 13:24:00 Test Item Value Reference Range Comments THYROID STIMULATING HORMONE (BEAKER) (test 2.37 uIU/mL 0.35-4.94 ciuh=714) RAD, CHEST, PA OR AP, 1 [id number] 11:03:00Reason for exam:->coughShould this be performed at the bedside?->NoFINAL REPORT AP chest HISTORY: Cough. COMPARISON: 06/17/2018. IMPRESSION: Tracheostomy tube present. Heart size normal. Lungs clear without effusion or pneumothorax. Intact skeleton. Signed: Ashok Whitaker Verified Date/Time: 2018 11:03:24 Reading Location: [address] Radiology Reading Room 11:03 AMCOMPREHENSIVE METABOLIC [id number] 10:52:00 Test Item Value Reference Range Comments TOTAL PROTEIN (BEAKER) 7.2 gm/dL 6.0-8.3 (test qzac=371) ALBUMIN (BEAKER) (test 3.9 g/dL 3.5-5.0 pvaj=7098) ALKALINE PHOSPHATASE 98 U/L 40-150 (BEAKER) (test hjrn=016) BILIRUBIN TOTAL (BEAKER) 0.4 mg/dL 0.2-1.2 (test yodt=758) SODIUM (BEAKER) (test 141 meq/L 136-145 bxzc=483) POTASSIUM (BEAKER) (test 4.4 meq/L 3.5-5.1 catj=715) CHLORIDE (BEAKER) (test 109 meq/L 98-107 cogf=461) CO2 (BEAKER) (test 24 meq/L 22-29 vbba=869) BLOOD UREA NITROGEN 14 mg/dL 7-21 (BEAKER) (test vrdl=189) CREATININE (BEAKER) (test 0.78 mg/dL 0.57-1.25 cfxi=854) GLUCOSE RANDOM (BEAKER) 107 mg/dL 70-105 (test cdmt=381) CALCIUM (BEAKER) (test 9.4 mg/dL 8.4-10.2 vedq=262) AST (SGOT) (BEAKER) (test 17 U/L 5-34 kwmb=216) ALT (SGPT) (BEAKER) (test 17 U/L 6-55 nlbp=339) EGFR (BEAKER) (test 106 mL/min/1.73 sq ESTIMATED GFR IS NOT sfyl=0210) m ACCURATE CREATININE CLEARANCE IN PREDICTING GLOMERULAR FILTRATION RATE. ESTIMATED GFR IS NOT APPLICABLE FOR DIALYSIS PATIENTS. CBC W/PLT COUNT & AUTO [id number] 10:32:00 Test Item Value Reference Range Comments WHITE BLOOD CELL COUNT (BEAKER) (test wmjy=100) 10.8 K/ L 3.5-10.5 RED BLOOD CELL COUNT (BEAKER) (test twvg=156) 4.08 M/ L 4.63-6.08 HEMOGLOBIN (BEAKER) (test zxzt=986) 12.6 GM/DL 13.7-17.5 HEMATOCRIT (BEAKER) (test fcut=234) 39.4 % 40.1-51.0 MEAN CORPUSCULAR VOLUME (BEAKER) (test qdce=113) 96.6 fL 79.0-92.2 MEAN CORPUSCULAR HEMOGLOBIN (BEAKER) (test 30.9 pg 25.7-32.2 idfb=468) MEAN CORPUSCULAR HEMOGLOBIN CONC (BEAKER) (test 32.0 GM/DL 32.3-36.5 yshh=615) RED CELL DISTRIBUTION WIDTH (BEAKER) (test 15.3 % 11.6-14.4 bmnh=833) PLATELET COUNT (BEAKER) (test vpvw=383) 321 K/CU MM 150-450 MEAN PLATELET VOLUME (BEAKER) (test bmkz=041) 9.9 fL 9.4-12.4 NUCLEATED RED BLOOD CELLS (BEAKER) (test 0 /100 WBC 0-0 qkwy=528) NEUTROPHILS RELATIVE PERCENT (BEAKER) (test 76 % oufr=983) LYMPHOCYTES RELATIVE PERCENT (BEAKER) (test 7 % wssq=974) MONOCYTES RELATIVE PERCENT (BEAKER) (test 10 % hndu=305) EOSINOPHILS RELATIVE PERCENT (BEAKER) (test 2 % osvi=302) BASOPHILS RELATIVE PERCENT (BEAKER) (test 1 % icpm=184) NEUTROPHILS ABSOLUTE COUNT (BEAKER) (test 8.18 K/ L 1.78-5.38 pyax=159) LYMPHOCYTES ABSOLUTE COUNT (BEAKER) (test 0.79 K/ L 1.32-3.57 ooog=839) MONOCYTES ABSOLUTE COUNT (BEAKER) (test 1.04 K/ L 0.30-0.82 ivxt=837) EOSINOPHILS ABSOLUTE COUNT (BEAKER) (test 0.16 K/ L 0.04-0.54 slhd=082) BASOPHILS ABSOLUTE COUNT (BEAKER) (test 0.13 K/ L 0.01-0.08 bsut=340) IMMATURE GRANULOCYTES-RELATIVE PERCENT (BEAKER) 5 % 0-1 (test rtug=5537) [id number] 10:30:00 Test Item Value Reference Range Comments PROTIME (BEAKER) (test xihu=087) 14.6 seconds 11.7-14.7 INR (BEAKER) (test aiew=085) 1.1 <=5.9 PARTIAL THROMBOPLASTIN TIME (BEAKER) (test 34.3 seconds 22.5-36.0 yfrm=480) RECOMMENDED COUMADIN/WARFARIN INR THERAPY RANGESSTANDARD DOSE: 2.0 - 3.0 Includes: PROPHYLAXIS forvenous thrombosis, systemic embolization; TREATMENT for venous thrombosis and/or pulmonary embolus.HIGH RISK: Target INR is 2.5-3.5 for patients with mechanical heart valves.BLOOD [id number] 20:01:00 Test Item Value Reference Range Comments CULTURE (BEAKER) (test nvow=1746) No growth in 5 days BLOOD [id number] 20:01:00 Test Item Value Reference Range Comments CULTURE (BEAKER) (test qirl=8951) No growth in 5 days CBC W/PLT COUNT & AUTO [id number] 12:54:00 Test Item Value Reference Range Comments WHITE BLOOD CELL COUNT (BEAKER) (test tylz=145) 6.6 K/ L 3.5-10.5 RED BLOOD CELL COUNT (BEAKER) (test siuw=993) 3.84 M/ L 4.63-6.08 HEMOGLOBIN (BEAKER) (test jlud=774) 11.9 GM/DL 13.7-17.5 HEMATOCRIT (BEAKER) (test vghh=988) 37.1 % 40.1-51.0 MEAN CORPUSCULAR VOLUME (BEAKER) (test amrt=576) 96.6 fL 79.0-92.2 MEAN CORPUSCULAR HEMOGLOBIN (BEAKER) (test 31.0 pg 25.7-32.2 rzxf=948) MEAN CORPUSCULAR HEMOGLOBIN CONC (BEAKER) (test 32.1 GM/DL 32.3-36.5 vibr=333) RED CELL DISTRIBUTION WIDTH (BEAKER) (test 15.1 % 11.6-14.4 elek=997) PLATELET COUNT (BEAKER) (test gtsu=743) 282 K/CU MM 150-450 MEAN PLATELET VOLUME (BEAKER) (test ijos=503) 10.3 fL 9.4-12.4 NUCLEATED RED BLOOD CELLS (BEAKER) (test 0 /100 WBC 0-0 cwgd=551) (CELLAVISION MANUAL DIFF)2018-06-21 12:54:00 Test Item Value Reference Range Comments NEUTROPHILS - REL (CELLAVISION)(BEAKER) (test 63 % hmbm=7072) LYMPHOCYTES - REL (CELLAVISION)(BEAKER) (test 10 % pawc=1553) MONOCYTES - REL (CELLAVISION)(BEAKER) (test 8 % udhn=2544) EOSINOPHILS - REL (CELLAVISION)(BEAKER) (test 2 % sgjb=4136) BASOPHILS - REL (CELLAVISION)(BEAKER) (test 2 % gway=0600) METAMYELOCYTES - REL (CELLAVISION)(BEAKER) (test 2 % 0-0 kbou=5809) BANDS - REL (CELLAVISION)(BEAKER) (test mnse=0523) 12 % 0-10 NEUTROPHILS - ABS (CELLAVISION)(BEAKER) (test 4.16 K/ul 1.78-5.38 jzfk=5324) LYMPHOCYTES - ABS (CELLAVISION)(BEAKER) (test 0.66 K/ul 1.32-3.57 exsi=7017) MONOCYTES - ABS (CELLAVISION)(BEAKER) (test 0.53 K/uL 0.30-0.82 ecrz=1330) EOSINOPHILS - ABS (CELLAVISION)(BEAKER) (test 0.13 K/uL 0.04-0.54 diin=4907) BASOPHILS - ABS (CELLAVISION)(BEAKER) (test 0.13 K/uL 0.01-0.08 tjyc=8255) METAMYELOCYTES - ABS (CELLAVISION)(BEAKER) (test 0.13 K/uL 0.00-0.00 hjth=2722) BANDS - ABS (CELLAVISION)(BEAKER) (test zhfu=6784) 0.79 K/uL 0.00-0.80 TOTAL COUNTED (BEAKER) (test bijs=3050) 100 WBC MORPHOLOGY (BEAKER) (test wpxw=661) Normal GIANT PLATELETS (BEAKER) (test uymo=438) Present ANISOCYTOSIS (BEAKER) (test pipb=876) 1+ few ARTIFACT (CELLAVISION)(BEAKER) (test vpuz=0436) Present PLATELET CONCENTRATION (CELLAVISION)(BEAKER) (test Adequate aohn=3552) Received comment: User comments: Slide comments:BASIC METABOLIC [id number] 06:44:00 Test Item Value Reference Range Comments SODIUM (BEAKER) (test 137 meq/L 136-145 cniu=782) POTASSIUM (BEAKER) (test 4.0 meq/L 3.5-5.1 wbdw=541) CHLORIDE (BEAKER) (test 102 meq/L 98-107 cewq=617) CO2 (BEAKER) (test 27 meq/L 22-29 holw=328) BLOOD UREA NITROGEN 9 mg/dL 7-21 (BEAKER) (test llec=523) CREATININE (BEAKER) (test 0.66 mg/dL 0.57-1.25 lvyd=721) GLUCOSE RANDOM (BEAKER) 99 mg/dL 70-105 (test bnjj=422) CALCIUM (BEAKER) (test 9.0 mg/dL 8.4-10.2 qqcx=189) EGFR (BEAKER) (test 129 mL/min/1.73 sq m ESTIMATED GFR IS NOT waeq=1237) ACCURATE CREATININE CLEARANCE IN PREDICTING GLOMERULAR FILTRATION RATE. ESTIMATED GFR IS NOT APPLICABLE FOR DIALYSIS PATIENTS. BLOOD [id number] 12:01:00 Test Item Value Reference Range Comments CULTURE (BEAKER) (test qkgp=2833) No growth in 5 days CBC W/PLT COUNT & AUTO [id number] 11:06:00 Test Item Value Reference Range Comments WHITE BLOOD CELL COUNT (BEAKER) (test tpgp=664) 6.7 K/ L 3.5-10.5 RED BLOOD CELL COUNT (BEAKER) (test fmzw=680) 3.88 M/ L 4.63-6.08 HEMOGLOBIN (BEAKER) (test btah=836) 12.4 GM/DL 13.7-17.5 HEMATOCRIT (BEAKER) (test rpux=994) 36.8 % 40.1-51.0 MEAN CORPUSCULAR VOLUME (BEAKER) (test bahl=666) 94.8 fL 79.0-92.2 MEAN CORPUSCULAR HEMOGLOBIN (BEAKER) (test 32.0 pg 25.7-32.2 gftv=853) MEAN CORPUSCULAR HEMOGLOBIN CONC (BEAKER) (test 33.7 GM/DL 32.3-36.5 liso=495) RED CELL DISTRIBUTION WIDTH (BEAKER) (test 15.3 % 11.6-14.4 huza=354) PLATELET COUNT (BEAKER) (test dtbz=290) 218 K/CU MM 150-450 MEAN PLATELET VOLUME (BEAKER) (test spdv=181) 10.5 fL 9.4-12.4 NUCLEATED RED BLOOD CELLS (BEAKER) (test 0 /100 WBC 0-0 ovsv=160) (CELLAVISION MANUAL DIFF)2018-06-20 11:06:00 Test Item Value Reference Range Comments NEUTROPHILS - REL (CELLAVISION)(BEAKER) (test 77 % crbl=8206) LYMPHOCYTES - REL (CELLAVISION)(BEAKER) (test 6 % yfif=2636) MONOCYTES - REL (CELLAVISION)(BEAKER) (test 3 % rarq=8303) EOSINOPHILS - REL (CELLAVISION)(BEAKER) (test 2 % qigt=5978) BANDS - REL (CELLAVISION)(BEAKER) (test wyub=7498) 10 % 0-10 ATYPICAL LYMPHOCYTES - REL (CELLAVISION)(BEAKER) 2 % 0-0 (test dkfc=9847) NEUTROPHILS - ABS (CELLAVISION)(BEAKER) (test 5.16 K/ul 1.78-5.38 rbgn=5682) LYMPHOCYTES - ABS (CELLAVISION)(BEAKER) (test 0.40 K/ul 1.32-3.57 khte=4963) MONOCYTES - ABS (CELLAVISION)(BEAKER) (test 0.20 K/uL 0.30-0.82 eenm=8276) EOSINOPHILS - ABS (CELLAVISION)(BEAKER) (test 0.13 K/uL 0.04-0.54 xsuz=3720) BANDS - ABS (CELLAVISION)(BEAKER) (test unqy=8432) 0.67 K/uL 0.00-0.80 ATYPICAL LYMPHOCYTES - ABS (CELLAVISION)(BEAKER) 0.13 K/uL 0.00-0.00 (test wtrf=2732) TOTAL COUNTED (BEAKER) (test jtdt=9163) 100 CLUMPED PLATELETS (BEAKER) (test zunj=874) Present SMUDGE CELLS (BEAKER) (test dgao=2714) Present GIANT PLATELETS (BEAKER) (test ccrg=125) Present TOXIC GRANULATION (BEAKER) (test fgmu=652) Present ANISOCYTOSIS (BEAKER) (test ypcf=277) 1+ few PLATELET CONCENTRATION (CELLAVISION)(BEAKER) (test Adequate bthj=0747) Received comment: User comments: Slide comments:BASIC METABOLIC [id number] 08:11:00 Test Item Value Reference Range Comments SODIUM (BEAKER) (test 134 meq/L 136-145 suie=029) POTASSIUM (BEAKER) (test 3.8 meq/L 3.5-5.1 wrfp=358) CHLORIDE (BEAKER) (test 97 meq/L 98-107 azgc=143) CO2 (BEAKER) (test 29 meq/L 22-29 dprv=433) BLOOD UREA NITROGEN 8 mg/dL 7-21 (BEAKER) (test xfpq=686) CREATININE (BEAKER) (test 0.65 mg/dL 0.57-1.25 jugk=049) GLUCOSE RANDOM (BEAKER) 93 mg/dL 70-105 (test lcqw=821) CALCIUM (BEAKER) (test 9.0 mg/dL 8.4-10.2 yisr=657) EGFR (BEAKER) (test 132 mL/min/1.73 sq m ESTIMATED GFR IS NOT ksco=7981) ACCURATE CREATININE CLEARANCE IN PREDICTING GLOMERULAR FILTRATION RATE. ESTIMATED GFR IS NOT APPLICABLE FOR DIALYSIS PATIENTS. BLOOD [id number] 08:01:00 Test Item Value Reference Range Comments CULTURE (BEAKER) (test qayc=9426) No growth in 5 days BLOOD [id number] 02:00:00 Test Item Value Reference Range Comments CULTURE (BEAKER) (test amym=3968) No growth in 5 days BLOOD [id number] 02:00:00 Test Item Value Reference Range Comments CULTURE (BEAKER) (test exou=0528) No growth in 5 days CBC W/PLT COUNT & AUTO [id number] 15:32:00 Test Item Value Reference Range Comments WHITE BLOOD CELL COUNT (BEAKER) (test euva=180) 6.4 K/ L 3.5-10.5 RED BLOOD CELL COUNT (BEAKER) (test kivv=258) 4.16 M/ L 4.63-6.08 HEMOGLOBIN (BEAKER) (test nikc=555) 13.2 GM/DL 13.7-17.5 HEMATOCRIT (BEAKER) (test lcvj=738) 39.5 % 40.1-51.0 MEAN CORPUSCULAR VOLUME (BEAKER) (test givx=140) 95.0 fL 79.0-92.2 MEAN CORPUSCULAR HEMOGLOBIN (BEAKER) (test 31.7 pg 25.7-32.2 grbm=266) MEAN CORPUSCULAR HEMOGLOBIN CONC (BEAKER) (test 33.4 GM/DL 32.3-36.5 puhe=140) RED CELL DISTRIBUTION WIDTH (BEAKER) (test 15.7 % 11.6-14.4 gamg=988) PLATELET COUNT (BEAKER) (test lnol=340) 148 K/CU MM 150-450 MEAN PLATELET VOLUME (BEAKER) (test yiwc=676) 10.7 fL 9.4-12.4 NUCLEATED RED BLOOD CELLS (BEAKER) (test 0 /100 WBC 0-0 asvo=508) (CELLAVISION MANUAL DIFF)2018-06-19 15:32:00 Test Item Value Reference Range Comments NEUTROPHILS - REL (CELLAVISION)(BEAKER) (test 73 % jmwh=5843) LYMPHOCYTES - REL (CELLAVISION)(BEAKER) (test 3 % mqrx=9303) MONOCYTES - REL (CELLAVISION)(BEAKER) (test 3 % sjow=2152) METAMYELOCYTES - REL (CELLAVISION)(BEAKER) (test 2 % 0-0 upyh=9934) MYELOCYTES - REL (CELLAVISION)(BEAKER) (test 1 % 0-0 nbzt=1218) BANDS - REL (CELLAVISION)(BEAKER) (test 16 % 0-10 nbep=3580) NEUTROPHILS - ABS (CELLAVISION)(BEAKER) (test 4.67 K/ul 1.78-5.38 wxbq=1683) LYMPHOCYTES - ABS (CELLAVISION)(BEAKER) (test 0.19 K/ul 1.32-3.57 jxqf=6332) MONOCYTES - ABS (CELLAVISION)(BEAKER) (test 0.19 K/uL 0.30-0.82 fseo=3351) METAMYELOCYTES - ABS (CELLAVISION)(BEAKER) (test 0.13 K/uL 0.00-0.00 hxlw=7193) MYELOCYTES-ABS (CELLAVISION)(BEAKER) (test 0.06 K/uL 0.00-0.00 nyxe=4156) BANDS - ABS (CELLAVISION)(BEAKER) (test 1.02 K/uL 0.00-0.80 lcyc=7695) TOTAL COUNTED (BEAKER) (test amdg=1758) 100 GIANT PLATELETS (BEAKER) (test qdfe=355) Present TOXIC GRANULATION (BEAKER) (test rkay=252) Present PLASMACYTOID LYMPHS(BEAKER) (test wcbu=7514) Present POLYCHROMATOPHILLIC RBCS(BEAKER) (test ilvl=658) 1+ few ANISOCYTOSIS (BEAKER) (test yipd=096) 2+ moderate MICROCYTES (BEAKER) (test tbwd=142) 2+ moderate POIKILOCYTES (BEAKER) (test jypr=000) 1+ few SPHEROCYTES (BEAKER) (test yxla=390) 1+ few ARTIFACT (CELLAVISION)(BEAKER) (test iqtp=7649) Present HELMET CELLS (CELLAVISION)(BEAKER) (test 1+ few dohx=6595) PLATELET CONCENTRATION (CELLAVISION)(BEAKER) Decreased (test maco=1347) Received comment: User comments: Slide comments:BASIC METABOLIC [id number] 07:38:00 Test Item Value Reference Range Comments SODIUM (BEAKER) (test 132 meq/L 136-145 emdb=833) POTASSIUM (BEAKER) (test 3.5 meq/L 3.5-5.1 tqlw=534) CHLORIDE (BEAKER) (test 95 meq/L 98-107 xwte=002) CO2 (BEAKER) (test 27 meq/L 22-29 gdce=333) BLOOD UREA NITROGEN 11 mg/dL 7-21 (BEAKER) (test zdba=816) CREATININE (BEAKER) (test 0.61 mg/dL 0.57-1.25 msbs=660) GLUCOSE RANDOM (BEAKER) 94 mg/dL 70-105 (test ffzy=483) CALCIUM (BEAKER) (test 8.8 mg/dL 8.4-10.2 bdzq=433) EGFR (BEAKER) (test 142 mL/min/1.73 sq m ESTIMATED GFR IS NOT zzdo=7303) ACCURATE CREATININE CLEARANCE IN PREDICTING GLOMERULAR FILTRATION RATE. ESTIMATED GFR IS NOT APPLICABLE FOR DIALYSIS PATIENTS. CBC W/PLT COUNT & AUTO [id number] 12:37:00 Test Item Value Reference Range Comments WHITE BLOOD CELL COUNT (BEAKER) (test fsox=716) 8.5 K/ L 3.5-10.5 RED BLOOD CELL COUNT (BEAKER) (test nqfm=483) 4.16 M/ L 4.63-6.08 HEMOGLOBIN (BEAKER) (test oquh=984) 13.0 GM/DL 13.7-17.5 HEMATOCRIT (BEAKER) (test yqzt=975) 38.5 % 40.1-51.0 MEAN CORPUSCULAR VOLUME (BEAKER) (test hczz=533) 92.5 fL 79.0-92.2 MEAN CORPUSCULAR HEMOGLOBIN (BEAKER) (test 31.3 pg 25.7-32.2 wahb=589) MEAN CORPUSCULAR HEMOGLOBIN CONC (BEAKER) (test 33.8 GM/DL 32.3-36.5 dpbl=556) RED CELL DISTRIBUTION WIDTH (BEAKER) (test 15.2 % 11.6-14.4 sqss=417) PLATELET COUNT (BEAKER) (test ozze=515) 145 K/CU MM 150-450 MEAN PLATELET VOLUME (BEAKER) (test anqx=695) 10.3 fL 9.4-12.4 NUCLEATED RED BLOOD CELLS (BEAKER) (test 0 /100 WBC 0-0 vqit=616) (CELLAVISION MANUAL DIFF)2018-06-18 12:37:00 Test Item Value Reference Range Comments NEUTROPHILS - REL (CELLAVISION)(BEAKER) (test 72 % hdwd=3425) LYMPHOCYTES - REL (CELLAVISION)(BEAKER) (test 2 % sobl=8600) BANDS - REL (CELLAVISION)(BEAKER) (test abli=6655) 25 % 0-10 ATYPICAL LYMPHOCYTES - REL (CELLAVISION)(BEAKER) 1 % 0-0 (test tbiv=8646) NEUTROPHILS - ABS (CELLAVISION)(BEAKER) (test 6.12 K/ul 1.78-5.38 qobo=5534) LYMPHOCYTES - ABS (CELLAVISION)(BEAKER) (test 0.17 K/ul 1.32-3.57 qlev=7234) BANDS - ABS (CELLAVISION)(BEAKER) (test wzer=7629) 2.13 K/uL 0.00-0.80 ATYPICAL LYMPHOCYTES - ABS (CELLAVISION)(BEAKER) 0.09 K/uL 0.00-0.00 (test gswb=0460) TOTAL COUNTED (BEAKER) (test sxsi=2667) 100 RBC MORPHOLOGY (BEAKER) (test gowc=422) Normal SMUDGE CELLS (BEAKER) (test hjlp=9057) Present GIANT PLATELETS (BEAKER) (test ijsd=889) Present TOXIC GRANULATION (BEAKER) (test fjgc=298) Present PLATELET CONCENTRATION (CELLAVISION)(BEAKER) (test Decreased eevc=4748) Received comment: User comments: Slide comments:BASIC METABOLIC [id number] 12:04:00 Test Item Value Reference Range Comments SODIUM (BEAKER) (test 130 meq/L 136-145 saxw=648) POTASSIUM (BEAKER) (test 3.1 meq/L 3.5-5.1 bhwc=596) CHLORIDE (BEAKER) (test 93 meq/L 98-107 oycf=880) CO2 (BEAKER) (test 27 meq/L 22-29 esay=172) BLOOD UREA NITROGEN < mg/dL 7-21 (BEAKER) (test omhj=208) CREATININE (BEAKER) (test 0.66 mg/dL 0.57-1.25 ilkn=010) GLUCOSE RANDOM (BEAKER) 157 mg/dL 70-105 (test fkig=164) CALCIUM (BEAKER) (test 8.6 mg/dL 8.4-10.2 pcpo=323) EGFR (BEAKER) (test 129 mL/min/1.73 sq m ESTIMATED GFR IS NOT lhct=8189) ACCURATE CREATININE CLEARANCE IN PREDICTING GLOMERULAR FILTRATION RATE. ESTIMATED GFR IS NOT APPLICABLE FOR DIALYSIS PATIENTS. VANCOMYCIN LEVEL, [id number] 12:02:00 Test Item Value Reference Range Comments VANCOMYCIN RANDOM (BEAKER) (test ndhf=078) 1.3 ug/mL Reference Range: No [id number] 12:00:00 Test Item Value Reference Range Comments MAGNESIUM (BEAKER) (test oxue=081) 2.2 mg/dL 1.6-2.6 SPUTUM CULTURE + GRAM [id number] 11:45:00 Test Item Value Reference Range Comments CULTURE (BEAKER) (test PSEUDOMONAS AERUGINOSA 4+ Pseudomonas lypt=7832) aeruginosa Amikacin (test code=1) Susceptible 0-16 , [...] CULTURE (BEAKER) (test PSEUDOMONAS AERUGINOSA 4+ Pseudomonas muyo=7830) aeruginosa Amikacin (test code=1) Susceptible 0-16 , [...] GRAM STAIN RESULT 1+ WBCs (BEAKER) (test epqz=4934) GRAM STAIN RESULT 15-20 epithelial cells (BEAKER) (test tisj=335819) GRAM STAIN RESULT <1+ gram negative (BEAKER) (test coccobacilli gogp=158578) GRAM STAIN RESULT <1+ gram positive (BEAKER) (test cocci in pairs hbag=665830) GRAM STAIN RESULT <1+ yeast with (BEAKER) (test pseudohyphae jnmm=955287) GRAM STAIN RESULT 1+ gram variable rods (BEAKER) (test vwyi=023017) 1+ Normal respiratory maximo presentC W/PLT COUNT & AUTO [id number] 18:36:00 Test Item Value Reference Range Comments WHITE BLOOD CELL COUNT (BEAKER) (test jjby=072) 7.3 K/ L 3.5-10.5 RED BLOOD CELL COUNT (BEAKER) (test oeqh=837) 4.53 M/ L 4.63-6.08 HEMOGLOBIN (BEAKER) (test teqm=701) 14.4 GM/DL 13.7-17.5 HEMATOCRIT (BEAKER) (test islx=832) 42.2 % 40.1-51.0 MEAN CORPUSCULAR VOLUME (BEAKER) (test ycjy=537) 93.2 fL 79.0-92.2 MEAN CORPUSCULAR HEMOGLOBIN (BEAKER) (test 31.8 pg 25.7-32.2 trsd=221) MEAN CORPUSCULAR HEMOGLOBIN CONC (BEAKER) (test 34.1 GM/DL 32.3-36.5 wksg=435) RED CELL DISTRIBUTION WIDTH (BEAKER) (test 15.0 % 11.6-14.4 dyho=728) PLATELET COUNT (BEAKER) (test hiej=592) 170 K/CU MM 150-450 MEAN PLATELET VOLUME (BEAKER) (test bjsr=127) 10.1 fL 9.4-12.4 NUCLEATED RED BLOOD CELLS (BEAKER) (test 0 /100 WBC 0-0 nadp=461) NEUTROPHILS RELATIVE PERCENT (BEAKER) (test 92 % pjff=115) LYMPHOCYTES RELATIVE PERCENT (BEAKER) (test 4 % reky=568) MONOCYTES RELATIVE PERCENT (BEAKER) (test 2 % tyrs=569) EOSINOPHILS RELATIVE PERCENT (BEAKER) (test 0 % fpqh=070) BASOPHILS RELATIVE PERCENT (BEAKER) (test 0 % kovw=337) NEUTROPHILS ABSOLUTE COUNT (BEAKER) (test 6.75 K/ L 1.78-5.38 mjmp=027) LYMPHOCYTES ABSOLUTE COUNT (BEAKER) (test 0.27 K/ L 1.32-3.57 ybkm=072) MONOCYTES ABSOLUTE COUNT (BEAKER) (test 0.15 K/ L 0.30-0.82 rtfm=560) EOSINOPHILS ABSOLUTE COUNT (BEAKER) (test 0.00 K/ L 0.04-0.54 mmwa=186) BASOPHILS ABSOLUTE COUNT (BEAKER) (test 0.02 K/ L 0.01-0.08 scrd=379) IMMATURE GRANULOCYTES-RELATIVE PERCENT (BEAKER) 2 % 0-1 (test edsp=7724) [id number] 14:37:00 Test Item Value Reference Range Comments PROCALCITONIN (BEAKER) (test abwb=0195) 0.08 ng/mL <0.05 SEPSIS RISK (ng/mL)Low: 0.05-0.50Intermediate: 0.51-2.00High: & gt;=2.01LACTIC ACID, [id number] 13:43:00 Test Item Value Reference Range Comments LACTATE BLOOD VENOUS (2) 2.4 mmol/L 0.5-2.2 Specimen slightly hemolyzed (BEAKER) (test idzc=4424) TISSUE [id number] 13:24:00Surgical Pathology Report Case: [id number] Authorizing Provider: Jennifer Fraire MD Collected: 06/09/2018 1735 Ordering Location: [address] Received: 06/10/2018 0811 Cardiovascular Pathologist: Jennifer Hull MD Specimen: SoftTissue, Other, LEFT SUPRAGLOTTIC MASS LEFT SUPRAGLOTTIC MASS, LARYNGOSCOPIC BIOPSY: - ATYPICAL SQUAMOUS PROLIFERATION (SEE COMMENT) Signing Pathologist Direct Phone Line: [phone] These are superficial fragments with hyperplasia, keratosis and dysplasia. Note is made of thehistory of chemoradiation. Ulceration, inflammation, atypical stromal cells and necrosis seen, may be due to the effect of chemoradiation. Immunohistochemical studies for AE1/AE3 and p53 confirm that the atypical cells in the stroma are likely reactive stromal cells. No invasive carcinoma is seen. Thebiopsy may not be traffic workforce representative of the entirelesion; Clinical correlation is recommended.09219; 38007; 90758Nxzyjatql mass Left subglottic massThe specimen is received in a fluidless container labeled with patient information and labeled "left supraglottic mass" consisting of four fragments of red soft tissue ranging from 0.1 to 0.4 cm, submitted entirely A1. CG/pl PERFORMEDThe interpretation of this case included the use of immunohistochemistry or special stains. p53 and AE1/ES0Guhszypefmowwdaqgxav technical testing was performed at [facility], Pathology Laboratory where it was [...] ESOPH, SWALLOW FUNCTION , WITH CINE OR [id number] 12:08:00Reason for exam:->silent aspiration evaluationFINAL REPORT Modified [...] MDReport Verified Date/Time: 06/17/2018 12:08:38 Reading Location: [address] Reading Room [id number] 09:44:00 Test Item Value Reference Range Comments MAGNESIUM (BEAKER) (test bbmb=893) 1.9 mg/dL 1.6-2.6 [id number] 09:44:00 Test Item Value Reference Range Comments PHOSPHORUS (BEAKER) (test gvdi=302) 2.9 mg/dL 2.3-4.7 RAD, CHEST, 1 VIEW, NON [id number] 08:16:00Reason for exam:->SOBShould this be performed at [...] MDReport Verified Date/Time: 06/17/2018 08:16:46 Reading Location: [facility] Radiology Reading Room BASIC METABOLIC [id number] 06:25:00 Test Item Value Reference Range Comments SODIUM (BEAKER) (test 134 meq/L 136-145 iocc=109) POTASSIUM (BEAKER) (test 3.7 meq/L 3.5-5.1 rcbb=085) CHLORIDE (BEAKER) (test 95 meq/L 98-107 yjam=460) CO2 (BEAKER) (test 31 meq/L 22-29 lxaf=049) BLOOD UREA NITROGEN 15 mg/dL 7-21 (BEAKER) (test fbld=131) CREATININE (BEAKER) (test 0.77 mg/dL 0.57-1.25 rvih=773) GLUCOSE RANDOM (BEAKER) 89 mg/dL 70-105 (test mfue=725) CALCIUM (BEAKER) (test 8.9 mg/dL 8.4-10.2 bexs=459) EGFR (BEAKER) (test 108 mL/min/1.73 sq m ESTIMATED GFR IS NOT zkjn=0157) ACCURATE CREATININE CLEARANCE IN PREDICTING GLOMERULAR FILTRATION RATE. ESTIMATED GFR IS NOT APPLICABLE FOR DIALYSIS PATIENTS. VANCOMYCIN LEVEL, [id number] 06:25:00 Test Item Value Reference Range Comments VANCOMYCIN RANDOM (BEAKER) (test pnzu=373) 9.6 ug/mL Reference Range: No NormalsDraw 30 min prior to scheduled dose, HOLD if level & gt; 20 mcg/mL, informMD.RESPIRATORY PANEL [id number] 12:23:00 Test Item Value Reference Range Comments HUMAN METAPNEUMOVIRUS Not detected Not detected, (BEAKER) (test xzuu=8300) Equivocal RHINOVIRUS (BEAKER) (test Not detected Not detected, epao=0083) Equivocal INFLUENZA A (BEAKER) (test Not detected Not detected, rwtp=3649) Equivocal INFLUENZA A (NO SUBTYPE) Not detected, (test fckj=2354) Equivocal INFLUENZA A SUBTYPE H1 Not detected, (BEAKER) (test qzwx=8859) Equivocal INFLUENZA A SUBTYPE H3 Not detected, (BEAKER) (test sijn=5882) Equivocal INFLUENZA A SUBTYPE H1-2009 Not detected, (BEAKER) (test dvac=8315) Equivocal INFLUENZA B (BEAKER) (test Not detected Not detected, whrr=4551) Equivocal RESPIRATORY SYNCYTIAL VIRUS Not detected Not detected, (BEAKER) (test nvzf=1815) Equivocal PARAINFLUENZA VIRUS 1 Not detected Not detected, (BEAKER) (test xszn=2890) Equivocal PARAINFLUENZA VIRUS 2 Not detected Not detected, (BEAKER) (test hrbu=3995) Equivocal PARAINFLUENZA VIRUS 3 Not detected Not detected, (BEAKER) (test hwyr=9960) Equivocal PARAINFLUENZA VIRUS 4 Not detected Not detected, (BEAKER) (test tgsi=3525) Equivocal ADENOVIRUS (BEAKER) (test Not detected Not detected, rpuw=1678) Equivocal CORONAVIRUS 229E (BEAKER) Detected Not detected, Droplet isolation. (test vehp=7632) Equivocal Consider stopping antibiotics. CORONAVIRUS HKU1 (BEAKER) Not detected Not detected, (test ldkk=0244) Equivocal CORONAVIRUS NL63 (BEAKER) Not detected Not detected, (test awmt=4598) Equivocal CORONAVIRUS OC43 (BEAKER) Not detected Not detected, (test pqcm=5271) Equivocal BORDETELLA PERTUSSIS (BEAKER) Not detected Not detected, (test suzp=4565) Equivocal CHLAMYDOPHILA PNEUMONIAE Not detected Not detected, (BEAKER) (test ctgl=3356) Equivocal MYCOPLASMA PNEUMONIAE Not detected Not detected, (BEAKER) (test joad=8908) Equivocal Other viruses and bacteria not targeted by this PCR panel cannot be excluded; therefore clinical correlation and follow up of serology, culture results, and other molecular studies is required. The results are not intended to be used as the sole means for clinical diagnosis or patient management decisions. This sample was tested at the [facility] using the Fl[employer] Respiratory Panel. It is FDA cleared and has been verified and approved by the [facility] for clinical use on nasal swab specimens. It is not FDA-cleared for use on bronchial wash/lavage samples. However, for this sample type, validation was performed and test characteristics were determined and approved, by [facility] for clinical use under the Clinical Laboratory Improvement Amendments (CLIA) of 1988 requirements. Therefore, FDA clearance isnot required. This laboratory is CLIA-certified and [employer] (CAP)-accredited to perform high complexity testing.CBC W/PLT COUNT & AUTO [id number] 11:27:00 Test Item Value Reference Range Comments WHITE BLOOD CELL COUNT (BEAKER) (test demk=248) 10.5 K/ L 3.5-10.5 RED BLOOD CELL COUNT (BEAKER) (test jhni=745) 4.20 M/ L 4.63-6.08 HEMOGLOBIN (BEAKER) (test jieq=906) 13.6 GM/DL 13.7-17.5 HEMATOCRIT (BEAKER) (test ream=532) 40.5 % 40.1-51.0 MEAN CORPUSCULAR VOLUME (BEAKER) (test chzb=679) 96.4 fL 79.0-92.2 MEAN CORPUSCULAR HEMOGLOBIN (BEAKER) (test 32.4 pg 25.7-32.2 yhmk=147) MEAN CORPUSCULAR HEMOGLOBIN CONC (BEAKER) (test 33.6 GM/DL 32.3-36.5 eemb=579) RED CELL DISTRIBUTION WIDTH (BEAKER) (test 15.1 % 11.6-14.4 flym=014) PLATELET COUNT (BEAKER) (test dotf=715) 142 K/CU MM 150-450 MEAN PLATELET VOLUME (BEAKER) (test tajk=096) 10.3 fL 9.4-12.4 NUCLEATED RED BLOOD CELLS (BEAKER) (test 0 /100 WBC 0-0 xxoq=442) (CELLAVISION MANUAL DIFF)2018-06-16 11:27:00 Test Item Value Reference Range Comments NEUTROPHILS - REL (CELLAVISION)(BEAKER) (test 51 % lpwv=6441) LYMPHOCYTES - REL (CELLAVISION)(BEAKER) (test 1 % avqg=6513) MONOCYTES - REL (CELLAVISION)(BEAKER) (test 2 % fqgo=3338) MYELOCYTES - REL (CELLAVISION)(BEAKER) (test 1 % 0-0 nyta=5168) PROMYELOCYTES - REL (CELLAVSION)(BEAKER) (test 1 % 0-0 gzzv=8610) BANDS - REL (CELLAVISION)(BEAKER) (test 44 % 0-10 iqtb=7321) NEUTROPHILS - ABS (CELLAVISION)(BEAKER) (test 5.36 K/ul 1.78-5.38 bwfr=8134) LYMPHOCYTES - ABS (CELLAVISION)(BEAKER) (test 0.11 K/ul 1.32-3.57 jnqz=4953) MONOCYTES - ABS (CELLAVISION)(BEAKER) (test 0.21 K/uL 0.30-0.82 wuws=9321) MYELOCYTES-ABS (CELLAVISION)(BEAKER) (test 0.11 K/uL 0.00-0.00 frim=0005) PROMYELOCYTES - ABS (CELLAVISION)(BEAKER) (test 0.11 K/uL 0.00-0.00 jueo=5358) BANDS - ABS (CELLAVISION)(BEAKER) (test 4.62 K/uL 0.00-0.80 qydh=8328) TOTAL COUNTED (BEAKER) (test xckn=8567) 100 MANUAL NRBC PER 100 CELLS (BEAKER) (test 1 /100 WBC 0-0 kjsf=3082) SMUDGE CELLS (BEAKER) (test iqwl=6075) Present GIANT PLATELETS (BEAKER) (test bsvh=878) Present POLYCHROMATOPHILLIC RBCS(BEAKER) (test spjh=852) 1+ few ANISOCYTOSIS (BEAKER) (test rewu=515) 1+ few MICROCYTES (BEAKER) (test rdwn=358) 1+ few POIKILOCYTES (BEAKER) (test opdx=044) 1+ few ARTIFACT (CELLAVISION)(BEAKER) (test lpsm=4069) Present PLATELET CONCENTRATION (CELLAVISION)(BEAKER) Adequate (test evft=6025) Received comment: User comments: Slide comments:CT, CHEST WITH IV CONTRAST- PE TEST [id number] 09:53:00Worsening hypoxia s/o diagnosis and excision of [...] MDReport Verified Date/Time: 06/16/2018 09:53:01 Reading Location: [facility] Diagnostic Imaging Reading Room - [place] [address] RAD, CHEST, 1 VIEW, NON [id number] 07:36:00Reason for exam:->recent pneumothorax, new trachShould [...] MDReport Verified Date/Time: 06/16/2018 07:36:27 Reading Location: [facility] Radiology Reading Room 07: 36 AMBASIC METABOLIC [id number] 05:45:00 Test Item Value Reference Range Comments SODIUM (BEAKER) (test 132 meq/L 136-145 yyfx=056) POTASSIUM (BEAKER) (test 3.9 meq/L 3.5-5.1 hqej=962) CHLORIDE (BEAKER) (test 92 meq/L 98-107 iynw=100) CO2 (BEAKER) (test 27 meq/L 22-29 cpto=967) BLOOD UREA NITROGEN 13 mg/dL 7-21 (BEAKER) (test wjoo=580) CREATININE (BEAKER) (test 0.83 mg/dL 0.57-1.25 rdya=945) GLUCOSE RANDOM (BEAKER) 129 mg/dL 70-105 (test ukci=809) CALCIUM (BEAKER) (test 9.5 mg/dL 8.4-10.2 ivtt=403) EGFR (BEAKER) (test 99 mL/min/1.73 sq m ESTIMATED GFR IS NOT snpg=3625) ACCURATE CREATININE CLEARANCE IN PREDICTING GLOMERULAR FILTRATION RATE. ESTIMATED GFR IS NOT APPLICABLE FOR DIALYSIS PATIENTS. [id number] 18:12:00 Test Item Value Reference Range Comments MAGNESIUM (BEAKER) (test 2.0 mg/dL 1.6-2.6 Specimen slightly hemolyzed ynxi=426) BASIC METABOLIC [id number] 18:12:00 Test Item Value Reference Range Comments SODIUM (BEAKER) (test 130 meq/L 136-145 sepa=725) POTASSIUM (BEAKER) (test 3.7 meq/L 3.5-5.1 Specimen slightly yoxp=362) hemolyzed CHLORIDE (BEAKER) (test 91 meq/L 98-107 elmx=940) CO2 (BEAKER) (test 27 meq/L 22-29 ijaj=725) BLOOD UREA NITROGEN 14 mg/dL 7-21 (BEAKER) (test vkao=737) CREATININE (BEAKER) (test 0.78 mg/dL 0.57-1.25 Specimen slightly xyil=553) hemolyzed GLUCOSE RANDOM (BEAKER) 85 mg/dL 70-105 (test jnnd=818) CALCIUM (BEAKER) (test 8.9 mg/dL 8.4-10.2 egyz=730) EGFR (BEAKER) (test 107 mL/min/1.73 sq m ESTIMATED GFR IS NOT rxtt=4242) ACCURATE CREATININE CLEARANCE IN PREDICTING GLOMERULAR FILTRATION RATE. ESTIMATED GFR IS NOT APPLICABLE FOR DIALYSIS PATIENTS. RAD, CHEST, 1 VIEW, NON [id number] 13:18:00Reason for exam:->recent pneumothorax, new trachShould this [...] MCGARRYepfarzaneh Verified Date/Time: 06/15/2018 13:18:45 Reading Location: [address] Neuro Reading Room BLOOD GAS, [id number] 11:41:00 Test Item Value Reference Range Comments PH ARTERIAL (BEAKER) (test zhlc=792) 7.50 7.35-7.45 PCO2 ARTERIAL (BEAKER) (test bqsg=637) 40 mmHg 35-45 PO2 ARTERIAL (BEAKER) (test gucp=665) 335 mmHg 80-90 O2 SATURATION ARTERIAL (BEAKER) (test gobd=148) 99.8 % 96.0-97.0 HCO3 ARTERIAL (BEAKER) (test qsgs=769) 29 mmol/L 21-29 BASE EXCESS ARTERIAL (BEAKER) (test aget=203) 6.5 mmol/L -2.0-3.0 PATIENT TEMPERATURE (BEAKER) (test kbox=6436) 39.3 C FIO2 (BEAKER) (test rvld=9828) 100.0 % Obtain one hour post initaition of vent support \\[id number]\\[id number] 09: 49:00 Test Item Value Reference Range Comments TROPONIN I (BEAKER) (test updp=820) < ng/mL 0.00-0.03 Troponin I (TnI) levels [...] Range Comments B-TYPE NATRIURETIC PEPTIDE (BEAKER) (test amui=041) 66 pg/mL 0-100 [id number] 09:29:00 Test Item Value Reference Range Comments D-DIMER QUANTITATIVE (BEAKER) (test wejy=729) 1.59 MG/L FEU <0.50 Intended Use: The D-Dimer Assay can be used to aid in the diagnosis of Deep Vein Thrombosis (DVT) and Pulmonary Embolism Disease (PED).In patients with low pre-test probability, various studies concerning STA Liatest D-dimer test have reported that with a cutoff value of 0.50 MG/L FEU, the Negative Predictive Value (NPV) regarding the exclusion of thrombosis is within 95-100% range.[id number] 09:12:00 Test Item Value Reference Range Comments FIBRINOGEN LEVEL (BEAKER) (test utqw=842) 621 mg/dl 225-434 [id number] 09:10:00 Test Item Value Reference Range Comments PHOSPHORUS (BEAKER) (test vseq=149) 2.8 mg/dL 2.3-4.7 [id number] 09:10:00 Test Item Value Reference Range Comments MAGNESIUM (BEAKER) (test zvop=562) 1.9 mg/dL 1.6-2.6 COMPREHENSIVE METABOLIC [id number] 09:10:00 Test Item Value Reference Range Comments TOTAL PROTEIN (BEAKER) 5.9 gm/dL 6.0-8.3 (test dqvi=127) ALBUMIN (BEAKER) (test 3.3 g/dL 3.5-5.0 vibh=9633) ALKALINE PHOSPHATASE 73 U/L 40-150 (BEAKER) (test qynx=840) BILIRUBIN TOTAL (BEAKER) 1.3 mg/dL 0.2-1.2 (test smos=698) SODIUM (BEAKER) (test 127 meq/L 136-145 sfrx=935) POTASSIUM (BEAKER) (test 3.8 meq/L 3.5-5.1 gafx=915) CHLORIDE (BEAKER) (test 89 meq/L 98-107 pkhf=823) CO2 (BEAKER) (test 28 meq/L 22-29 jydf=748) BLOOD UREA NITROGEN 14 mg/dL 7-21 (BEAKER) (test zyba=767) CREATININE (BEAKER) (test 0.78 mg/dL 0.57-1.25 ztfc=220) GLUCOSE RANDOM (BEAKER) 87 mg/dL 70-105 (test qjzi=282) CALCIUM (BEAKER) (test 8.8 mg/dL 8.4-10.2 mkyr=443) AST (SGOT) (BEAKER) (test 23 U/L 5-34 kend=768) ALT (SGPT) (BEAKER) (test 26 U/L 6-55 enxj=744) EGFR (BEAKER) (test 107 mL/min/1.73 sq ESTIMATED GFR IS NOT hdzw=0193) m ACCURATE CREATININE CLEARANCE IN PREDICTING GLOMERULAR FILTRATION RATE. ESTIMATED GFR IS NOT APPLICABLE FOR DIALYSIS PATIENTS. [id number] 09:01:00 Test Item Value Reference Range Comments PROTIME (BEAKER) (test bedj=506) 15.2 seconds 11.7-14.7 INR (BEAKER) (test afth=421) 1.2 <=5.9 PARTIAL THROMBOPLASTIN TIME (BEAKER) (test 31.6 seconds 22.5-36.0 gskk=867) RECOMMENDED COUMADIN/WARFARIN INR THERAPY RANGESSTANDARD DOSE: 2.0 - 3.0 Includes: PROPHYLAXIS forvenous thrombosis, systemic embolization; TREATMENT for venous thrombosis and/or pulmonary embolus.HIGH RISK: Target INR is 2.5-3.5 for patients with mechanical heart valves.LACTIC ACID, [id number] 08:51: 00 Test Item Value Reference Range Comments LACTATE BLOOD ARTERIAL (2) 0.8 mmol/L 0.5-2.2 Specimen slightly hemolyzed (BEAKER) (test tezj=6409) BLOOD GAS, [id number] 08:40:00 Test Item Value Reference Range Comments PH ARTERIAL (BEAKER) (test vcmw=440) 7.51 7.35-7.45 PCO2 ARTERIAL (BEAKER) (test dogi=803) 40 mmHg 35-45 PO2 ARTERIAL (BEAKER) (test qcep=611) 58 mmHg 80-90 O2 SATURATION ARTERIAL (BEAKER) (test nqwj=346) 90.0 % 96.0-97.0 HCO3 ARTERIAL (BEAKER) (test uqwf=832) 31 mmol/L 21-29 BASE EXCESS ARTERIAL (BEAKER) (test zwbk=411) 8.3 mmol/L -2.0-3.0 PATIENT TEMPERATURE (BEAKER) (test vrwx=5534) 39.1 C FIO2 (BEAKER) (test caxo=3511) 80.0 % [id number] 08:00:00 Test Item Value Reference Range Comments MAGNESIUM (BEAKER) (test eqrk=380) 1.8 mg/dL 1.6-2.6 Add onCBC W/PLT COUNT & AUTO [id number] 06:45:00 Test Item Value Reference Range Comments WHITE BLOOD CELL COUNT (BEAKER) (test pykv=341) 10.2 K/ L 3.5-10.5 RED BLOOD CELL COUNT (BEAKER) (test spuk=320) 4.12 M/ L 4.63-6.08 HEMOGLOBIN (BEAKER) (test dfnp=417) 13.2 GM/DL 13.7-17.5 HEMATOCRIT (BEAKER) (test tthz=985) 40.8 % 40.1-51.0 MEAN CORPUSCULAR VOLUME (BEAKER) (test dkwt=174) 99.0 fL 79.0-92.2 MEAN CORPUSCULAR HEMOGLOBIN (BEAKER) (test 32.0 pg 25.7-32.2 imui=295) MEAN CORPUSCULAR HEMOGLOBIN CONC (BEAKER) (test 32.4 GM/DL 32.3-36.5 ruea=293) RED CELL DISTRIBUTION WIDTH (BEAKER) (test 15.2 % 11.6-14.4 egkl=856) PLATELET COUNT (BEAKER) (test abwc=115) 146 K/CU MM 150-450 MEAN PLATELET VOLUME (BEAKER) (test gjjb=744) 9.9 fL 9.4-12.4 NUCLEATED RED BLOOD CELLS (BEAKER) (test 0 /100 WBC 0-0 omyx=475) NEUTROPHILS RELATIVE PERCENT (BEAKER) (test 92 % kjxf=878) LYMPHOCYTES RELATIVE PERCENT (BEAKER) (test 3 % eyea=445) MONOCYTES RELATIVE PERCENT (BEAKER) (test 2 % kylm=150) EOSINOPHILS RELATIVE PERCENT (BEAKER) (test 0 % kzfa=226) BASOPHILS RELATIVE PERCENT (BEAKER) (test 0 % bdou=825) NEUTROPHILS ABSOLUTE COUNT (BEAKER) (test 9.38 K/ L 1.78-5.38 vpse=026) LYMPHOCYTES ABSOLUTE COUNT (BEAKER) (test 0.30 K/ L 1.32-3.57 egnd=420) MONOCYTES ABSOLUTE COUNT (BEAKER) (test 0.23 K/ L 0.30-0.82 pzep=812) EOSINOPHILS ABSOLUTE COUNT (BEAKER) (test 0.00 K/ L 0.04-0.54 fowa=755) BASOPHILS ABSOLUTE COUNT (BEAKER) (test 0.03 K/ L 0.01-0.08 vfnr=319) IMMATURE GRANULOCYTES-RELATIVE PERCENT (BEAKER) 3 % 0-1 (test lpoa=4428) BASIC METABOLIC [id number] 06:35:00 Test Item Value Reference Range Comments SODIUM (BEAKER) (test 127 meq/L 136-145 dklg=826) POTASSIUM (BEAKER) (test 3.8 meq/L 3.5-5.1 mkjm=768) CHLORIDE (BEAKER) (test 91 meq/L 98-107 myqw=325) CO2 (BEAKER) (test 27 meq/L 22-29 mwpi=854) BLOOD UREA NITROGEN 12 mg/dL 7-21 (BEAKER) (test wkii=510) CREATININE (BEAKER) (test 0.75 mg/dL 0.57-1.25 iybo=115) GLUCOSE RANDOM (BEAKER) 88 mg/dL 70-105 (test yznl=984) CALCIUM (BEAKER) (test 8.6 mg/dL 8.4-10.2 bsiy=351) EGFR (BEAKER) (test 112 mL/min/1.73 sq m ESTIMATED GFR IS NOT pjtm=6288) ACCURATE CREATININE CLEARANCE IN PREDICTING GLOMERULAR FILTRATION RATE. ESTIMATED GFR IS NOT APPLICABLE FOR DIALYSIS PATIENTS. RAD, CHEST, 1 VIEW, NON [id number] 05:10:00Reason for exam:->sob, tachypneaShould this be performed [...] Carrillo Verified Date/Time: 06/15/2018 05:10:33 Reading Location: [address] Reading Room POCT-LACTIC ACID, [id number] 04:30:00 Test Item Value Reference Range Comments POC-LACTIC ACID, VENOUS 1.1 mmol/L 0.9-1.7 TESTED AT [facility] [address] [facility] (BEAKER) (test obqm=0983) [facility] [address] URINALYSIS W/ REFLEX URINE [id number] 20:03:00 Test Item Value Reference Range Comments COLOR (BEAKER) (test ynle=854) Light Yellow CLARITY (BEAKER) (test djwc=690) Hazy SPECIFIC GRAVITY UA (BEAKER) (test jlnn=542) 1.014 1.001-1.035 PH UA (BEAKER) (test voip=008) 7.5 5.0-8.0 PROTEIN UA (BEAKER) (test tslf=584) Negative Negative GLUCOSE UA (BEAKER) (test qvvd=961) Negative Negative KETONES UA (BEAKER) (test nuvz=466) Negative Negative BILIRUBIN UA (BEAKER) (test barq=456) Negative Negative BLOOD UA (BEAKER) (test mxfy=973) Negative Negative NITRITE UA (BEAKER) (test eoee=276) Negative Negative LEUKOCYTE ESTERASE UA (BEAKER) (test dpgu=066) Negative Negative UROBILINOGEN UA (BEAKER) (test nmpa=358) 0.2 mg/dL 0.2-1.0 RBC UA (BEAKER) (test fnay=378) 0 /HPF WBC UA (BEAKER) (test nedx=380) 0 /HPF BACTERIA (BEAKER) (test biof=929) Few MUCUS (BEAKER) (test beda=9195) Rare HYALINE CASTS (BEAKER) (test aqkn=523) 3 /LPF SOURCE(BEAKER) (test ejwq=7027) RAD, CHEST, 1 VIEW, NON [id number] 19:10:00Reason for exam:->SUSUPECTED INFECTIONShould this be performed [...] Verified Date/Time: 06/14/2018 19:10: 10 Reading Location: [address] Reading Room CBC W/PLT COUNT & AUTO [id number] 04:36:00 Test Item Value Reference Range Comments WHITE BLOOD CELL COUNT (BEAKER) (test plya=190) 11.4 K/ L 3.5-10.5 RED BLOOD CELL COUNT (BEAKER) (test xmze=419) 4.37 M/ L 4.63-6.08 HEMOGLOBIN (BEAKER) (test hwtx=298) 14.1 GM/DL 13.7-17.5 HEMATOCRIT (BEAKER) (test tidh=922) 44.0 % 40.1-51.0 MEAN CORPUSCULAR VOLUME (BEAKER) (test gkqz=374) 100.7 fL 79.0-92.2 MEAN CORPUSCULAR HEMOGLOBIN (BEAKER) (test 32.3 pg 25.7-32.2 twwo=854) MEAN CORPUSCULAR HEMOGLOBIN CONC (BEAKER) (test 32.0 GM/DL 32.3-36.5 qjir=164) RED CELL DISTRIBUTION WIDTH (BEAKER) (test 14.4 % 11.6-14.4 ifwj=623) PLATELET COUNT (BEAKER) (test lhck=462) 188 K/CU MM 150-450 MEAN PLATELET VOLUME (BEAKER) (test rvni=239) 10.7 fL 9.4-12.4 NUCLEATED RED BLOOD CELLS (BEAKER) (test 0 /100 WBC 0-0 adnl=224) NEUTROPHILS RELATIVE PERCENT (BEAKER) (test 95 % nxpd=383) LYMPHOCYTES RELATIVE PERCENT (BEAKER) (test 1 % yqth=791) MONOCYTES RELATIVE PERCENT (BEAKER) (test 2 % euoy=251) EOSINOPHILS RELATIVE PERCENT (BEAKER) (test 0 % sfco=630) BASOPHILS RELATIVE PERCENT (BEAKER) (test 0 % vhkj=970) NEUTROPHILS ABSOLUTE COUNT (BEAKER) (test 10.81 K/ L 1.78-5.38 ciuq=624) LYMPHOCYTES ABSOLUTE COUNT (BEAKER) (test 0.16 K/ L 1.32-3.57 xgno=347) MONOCYTES ABSOLUTE COUNT (BEAKER) (test 0.26 K/ L 0.30-0.82 yjhy=023) EOSINOPHILS ABSOLUTE COUNT (BEAKER) (test 0.00 K/ L 0.04-0.54 kvyw=930) BASOPHILS ABSOLUTE COUNT (BEAKER) (test 0.03 K/ L 0.01-0.08 xgap=473) IMMATURE GRANULOCYTES-RELATIVE PERCENT (BEAKER) 2 % 0-1 (test ixjc=6131) RAD, CHEST, 1 VIEW, NON [id number] 04:13:00Reason for exam:->recent pneumothorax, new trachShould this [...] Verified Date/ Time: 06/14/2018 04:13:50 Reading Location: [address] Transitional Reading Room BLOOD GAS, [id number] 01:01:00 Test Item Value Reference Range Comments PH ARTERIAL (BEAKER) (test sxen=686) 7.45 7.35-7.45 PCO2 ARTERIAL (BEAKER) (test kqji=135) 41 mmHg 35-45 PO2 ARTERIAL (BEAKER) (test bmkf=104) 109 mmHg 80-90 O2 SATURATION ARTERIAL (BEAKER) (test ugav=523) 98.2 % 96.0-97.0 HCO3 ARTERIAL (BEAKER) (test apkr=051) 28 mmol/L 21-29 BASE EXCESS ARTERIAL (BEAKER) (test xmgx=442) 3.4 mmol/L -2.0-3.0 PATIENT TEMPERATURE (BEAKER) (test mxvc=4490) 36.7 C FIO2 (BEAKER) (test arkf=6676) 40.0 % POCT-GLUCOSE [id number] 05:32:00 Test Item Value Reference Range Comments POC-GLUCOSE METER (BEAKER) 92 mg/dL 70-110 TESTED AT [address] (test tnyr=5329) [facility] [address] RAD, CHEST, 1 VIEW, NON [id number] 05:03:00Reason for exam:->evaluate for pneumo r/t CTShould [...] Verified Date/ Time: 06/13/2018 05:03:31 Reading Location: [address] Transitional Reading Room [id number] 04:22:00 Test Item Value Reference Range Comments PARTIAL THROMBOPLASTIN TIME (BEAKER) (test 27.4 seconds 22.5-36.0 tnif=365) PROTHROMBIN [id number] 04:21:00 Test Item Value Reference Range Comments PROTIME (BEAKER) (test efku=358) 13.8 seconds 11.7-14.7 INR (BEAKER) (test cyif=692) 1.1 <=5.9 RECOMMENDED COUMADIN/WARFARIN INR THERAPY RANGESSTANDARD DOSE: 2.0 - 3.0 Includes: PROPHYLAXIS forvenous thrombosis, systemic embolization; TREATMENT for venous thrombosis and/or pulmonary embolus.HIGH RISK: Target INR is 2.5-3.5 for patients with mechanical heart valves.[id number] 04:20:00 Test Item Value Reference Range Comments PHOSPHORUS (BEAKER) (test aaie=579) 3.1 mg/dL 2.3-4.7 [id number] 04:20:00 Test Item Value Reference Range Comments MAGNESIUM (BEAKER) (test bivc=278) 2.0 mg/dL 1.6-2.6 BASIC METABOLIC [id number] 04:20:00 Test Item Value Reference Range Comments SODIUM (BEAKER) (test 140 meq/L 136-145 beas=586) POTASSIUM (BEAKER) (test 3.7 meq/L 3.5-5.1 yooz=172) CHLORIDE (BEAKER) (test 101 meq/L 98-107 zcfu=021) CO2 (BEAKER) (test 30 meq/L 22-29 qjdb=317) BLOOD UREA NITROGEN 13 mg/dL 7-21 (BEAKER) (test xxdy=639) CREATININE (BEAKER) (test 0.74 mg/dL 0.57-1.25 qtlz=992) GLUCOSE RANDOM (BEAKER) 97 mg/dL 70-105 (test pbsy=959) CALCIUM (BEAKER) (test 9.2 mg/dL 8.4-10.2 gmuo=636) EGFR (BEAKER) (test 113 mL/min/1.73 sq m ESTIMATED GFR IS NOT avim=1123) ACCURATE CREATININE CLEARANCE IN PREDICTING GLOMERULAR FILTRATION RATE. ESTIMATED GFR IS NOT APPLICABLE FOR DIALYSIS PATIENTS. CBC W/PLT COUNT & AUTO [id number] 04:14:00 Test Item Value Reference Range Comments WHITE BLOOD CELL COUNT (BEAKER) (test rflk=200) 11.6 K/ L 3.5-10.5 RED BLOOD CELL COUNT (BEAKER) (test kwfr=889) 4.30 M/ L 4.63-6.08 HEMOGLOBIN (BEAKER) (test dvyz=579) 13.9 GM/DL 13.7-17.5 HEMATOCRIT (BEAKER) (test jzqb=311) 43.3 % 40.1-51.0 MEAN CORPUSCULAR VOLUME (BEAKER) (test ggdc=268) 100.7 fL 79.0-92.2 MEAN CORPUSCULAR HEMOGLOBIN (BEAKER) (test 32.3 pg 25.7-32.2 zlma=932) MEAN CORPUSCULAR HEMOGLOBIN CONC (BEAKER) (test 32.1 GM/DL 32.3-36.5 uhnl=854) RED CELL DISTRIBUTION WIDTH (BEAKER) (test 14.1 % 11.6-14.4 olpb=978) PLATELET COUNT (BEAKER) (test iqfu=485) 182 K/CU MM 150-450 MEAN PLATELET VOLUME (BEAKER) (test ukje=863) 10.7 fL 9.4-12.4 NUCLEATED RED BLOOD CELLS (BEAKER) (test 0 /100 WBC 0-0 rsew=648) NEUTROPHILS RELATIVE PERCENT (BEAKER) (test 89 % omjt=510) LYMPHOCYTES RELATIVE PERCENT (BEAKER) (test 3 % uywi=840) MONOCYTES RELATIVE PERCENT (BEAKER) (test 6 % wers=983) EOSINOPHILS RELATIVE PERCENT (BEAKER) (test 0 % qmao=551) BASOPHILS RELATIVE PERCENT (BEAKER) (test 0 % dwkx=317) NEUTROPHILS ABSOLUTE COUNT (BEAKER) (test 10.26 K/ L 1.78-5.38 uxhj=078) LYMPHOCYTES ABSOLUTE COUNT (BEAKER) (test 0.39 K/ L 1.32-3.57 zvhx=278) MONOCYTES ABSOLUTE COUNT (BEAKER) (test 0.74 K/ L 0.30-0.82 wstp=210) EOSINOPHILS ABSOLUTE COUNT (BEAKER) (test 0.02 K/ L 0.04-0.54 scln=233) BASOPHILS ABSOLUTE COUNT (BEAKER) (test 0.03 K/ L 0.01-0.08 prvr=746) IMMATURE GRANULOCYTES-RELATIVE PERCENT (BEAKER) 1 % 0-1 (test fqxw=5789) POCT-GLUCOSE [id number] 00:14:00 Test Item Value Reference Range Comments POC-GLUCOSE METER (BEAKER) 126 mg/dL 70-110 TESTED AT [address] (test bgof=5603) [facility] [address] RAD, CHEST, 1 VIEW, NON [id number] 12:29:00Reason for exam:->s/p[ L thoracocentesisFINAL REPORT CLINICAL HISTORY: s/p[ L thoracocentesis TECHNIQUE: 1 view of the chest. COMPARISON: 06/12/2018 IMPRESSION: A tracheostomy tube is again seen. There is no pneumothorax. Bibasilar atelectasis is again noted. There is no significant appearing pleural fluid. The cardiomediastinal silhouette is magnified by technique. Signed: Jacqueline Hilliard MDReport Verified Date/Time:06/12/2018 12:29:27 Reading Location: [address] Consult Reading Room POCT-GLUCOSE [id number] 12:10:00 Test Item Value Reference Range Comments POC-GLUCOSE METER (BEAKER) 194 mg/dL 70-110 TESTED AT [address] (test supv=3486) [place] [address] CT, CHEST, WITH [id number] 10:26:00Premedicated for contrast allergy. With general anesthesia [...] Manort Verified Date/Time: 06/12/2018 10:26:26 Reading Location: [facility] Diagnostic Imaging Reading Room - [place] [address], SOFT TISSUE NECK, [id number] 09:53: 00Premedicated for contrast allergy. With gneral [...] MDRnicolasort Verified Date/Time: 06/12/2018 09:53:06 Reading Location: [facility] [address] Neuro Reading Room [id number] 06:00:00 Test Item Value Reference Range Comments PHOSPHORUS (BEAKER) (test lxoa=698) 2.9 mg/dL 2.3-4.7 [id number] 06:00:00 Test Item Value Reference Range Comments MAGNESIUM (BEAKER) (test gofo=086) 2.1 mg/dL 1.6-2.6 BASIC METABOLIC [id number] 06:00:00 Test Item Value Reference Range Comments SODIUM (BEAKER) (test 139 meq/L 136-145 hnmu=409) POTASSIUM (BEAKER) (test 3.9 meq/L 3.5-5.1 nmno=058) CHLORIDE (BEAKER) (test 104 meq/L 98-107 zukm=173) CO2 (BEAKER) (test 26 meq/L 22-29 vnie=149) BLOOD UREA NITROGEN 13 mg/dL 7-21 (BEAKER) (test jiwa=096) CREATININE (BEAKER) (test 0.65 mg/dL 0.57-1.25 jzxl=167) GLUCOSE RANDOM (BEAKER) 109 mg/dL 70-105 (test fphe=401) CALCIUM (BEAKER) (test 9.5 mg/dL 8.4-10.2 mwfv=432) EGFR (BEAKER) (test 132 mL/min/1.73 sq m ESTIMATED GFR IS NOT sibe=8124) ACCURATE CREATININE CLEARANCE IN PREDICTING GLOMERULAR FILTRATION RATE. ESTIMATED GFR IS NOT APPLICABLE FOR DIALYSIS PATIENTS. POCT-GLUCOSE [id number] 05:44:00 Test Item Value Reference Range Comments POC-GLUCOSE METER (BEAKER) 157 mg/dL 70-110 TESTED AT [facility] [address] [facility] (test kwcq=2383) [facility] [address] CBC W/PLT COUNT & AUTO [id number] 04:29:00 Test Item Value Reference Range Comments WHITE BLOOD CELL COUNT (BEAKER) (test ihim=156) 17.3 K/ L 3.5-10.5 RED BLOOD CELL COUNT (BEAKER) (test zzvb=402) 4.42 M/ L 4.63-6.08 HEMOGLOBIN (BEAKER) (test ctvi=249) 14.4 GM/DL 13.7-17.5 HEMATOCRIT (BEAKER) (test cxyw=418) 43.7 % 40.1-51.0 MEAN CORPUSCULAR VOLUME (BEAKER) (test ygmr=015) 98.9 fL 79.0-92.2 MEAN CORPUSCULAR HEMOGLOBIN (BEAKER) (test 32.6 pg 25.7-32.2 vrjf=415) MEAN CORPUSCULAR HEMOGLOBIN CONC (BEAKER) (test 33.0 GM/DL 32.3-36.5 hlnj=073) RED CELL DISTRIBUTION WIDTH (BEAKER) (test 14.2 % 11.6-14.4 mywq=780) PLATELET COUNT (BEAKER) (test jeaw=440) 180 K/CU MM 150-450 MEAN PLATELET VOLUME (BEAKER) (test oepq=120) 10.9 fL 9.4-12.4 NUCLEATED RED BLOOD CELLS (BEAKER) (test 0 /100 WBC 0-0 ypun=605) NEUTROPHILS RELATIVE PERCENT (BEAKER) (test 94 % xlhj=394) LYMPHOCYTES RELATIVE PERCENT (BEAKER) (test 2 % fnol=022) MONOCYTES RELATIVE PERCENT (BEAKER) (test 3 % gxjc=850) EOSINOPHILS RELATIVE PERCENT (BEAKER) (test 0 % hshj=211) BASOPHILS RELATIVE PERCENT (BEAKER) (test 0 % vpln=519) NEUTROPHILS ABSOLUTE COUNT (BEAKER) (test 16.28 K/ L 1.78-5.38 zboe=845) LYMPHOCYTES ABSOLUTE COUNT (BEAKER) (test 0.28 K/ L 1.32-3.57 dtug=588) MONOCYTES ABSOLUTE COUNT (BEAKER) (test 0.55 K/ L 0.30-0.82 ygtv=930) EOSINOPHILS ABSOLUTE COUNT (BEAKER) (test 0.00 K/ L 0.04-0.54 mpfw=490) BASOPHILS ABSOLUTE COUNT (BEAKER) (test 0.02 K/ L 0.01-0.08 sfwk=471) IMMATURE GRANULOCYTES-RELATIVE PERCENT (BEAKER) 1 % 0-1 (test euyf=9472) RAD, CHEST, 1 VIEW, NON [id number] 04:26:00Reason for exam:->evaluate for pneumo r/t CTShould this be performed at the bedside?->YesFINAL REPORT CLINICAL INDICATION: Support lines. Comparison: 2018 The cardiomediastinal contours are stable. The lung volumes remain low. The lateral pulmonary opacities are similar to previous within variation of acquisition technique. There is no pneumothorax. A tracheostomy tube is stable. Signed: Jakob Garcia MDReport Verified Date/Time: 06/12/2018 04:26:44 Reading Location: [address] Reading Room Electronically signed by: JAKOB GARCIA M.D. on06/12/2018 04:26 [id number] 04:02:00 Test Item Value Reference Range Comments PARTIAL THROMBOPLASTIN TIME (BEAKER) (test 29.1 seconds 22.5-36.0 krds=588) PROTHROMBIN TIME/[id number] 04:01:00 Test Item Value Reference Range Comments PROTIME (BEAKER) (test smis=413) 13.4 seconds 11.7-14.7 INR (BEAKER) (test sjrt=867) 1.0 <=5.9 RECOMMENDED COUMADIN/WARFARIN INR THERAPY RANGESSTANDARD DOSE: 2.0 - 3.0 Includes: PROPHYLAXIS forvenous thrombosis, systemic embolization; TREATMENT for venous thrombosis and/or pulmonary embolus.HIGH RISK: Target INR is 2.5-3.5 for patients with mechanical heart valves.POCT-GLUCOSE [id number] 00:10:00 Test Item Value Reference Range Comments POC-GLUCOSE METER (BEAKER) 225 mg/dL 70-110 TESTED AT [facility] [address] [facility] (test rfpg=8651) [facility] [address] POCT-GLUCOSE [id number] 06:14:00 Test Item Value Reference Range Comments POC-GLUCOSE METER (BEAKER) 129 mg/dL 70-110 TESTED AT [facility] [address] [facility] (test zlti=3273) [facility] [address] TSH/FREE T4 IF [id number] 04:46:00 Test Item Value Reference Range Comments THYROID STIMULATING HORMONE (BEAKER) (test 0.87 uIU/mL 0.35-4.94 nssb=449) CBC W/PLT COUNT & AUTO [id number] 04:30:00 Test Item Value Reference Range Comments WHITE BLOOD CELL COUNT (BEAKER) (test swpv=711) 16.2 K/ L 3.5-10.5 RED BLOOD CELL COUNT (BEAKER) (test ekbd=795) 4.01 M/ L 4.63-6.08 HEMOGLOBIN (BEAKER) (test guwf=655) 12.9 GM/DL 13.7-17.5 HEMATOCRIT (BEAKER) (test ydcq=282) 41.0 % 40.1-51.0 MEAN CORPUSCULAR VOLUME (BEAKER) (test usrz=592) 102.2 fL 79.0-92.2 MEAN CORPUSCULAR HEMOGLOBIN (BEAKER) (test 32.2 pg 25.7-32.2 whtq=161) MEAN CORPUSCULAR HEMOGLOBIN CONC (BEAKER) (test 31.5 GM/DL 32.3-36.5 kisk=622) RED CELL DISTRIBUTION WIDTH (BEAKER) (test 14.5 % 11.6-14.4 laed=933) PLATELET COUNT (BEAKER) (test axlb=011) 176 K/CU MM 150-450 MEAN PLATELET VOLUME (BEAKER) (test cael=668) 10.9 fL 9.4-12.4 NUCLEATED RED BLOOD CELLS (BEAKER) (test 0 /100 WBC 0-0 cvnm=345) NEUTROPHILS RELATIVE PERCENT (BEAKER) (test 93 % jjgl=159) LYMPHOCYTES RELATIVE PERCENT (BEAKER) (test 2 % pyfz=170) MONOCYTES RELATIVE PERCENT (BEAKER) (test 4 % gndj=088) EOSINOPHILS RELATIVE PERCENT (BEAKER) (test 0 % oprv=738) BASOPHILS RELATIVE PERCENT (BEAKER) (test 0 % nvhw=904) NEUTROPHILS ABSOLUTE COUNT (BEAKER) (test 15.09 K/ L 1.78-5.38 yytk=390) LYMPHOCYTES ABSOLUTE COUNT (BEAKER) (test 0.28 K/ L 1.32-3.57 lqeh=164) MONOCYTES ABSOLUTE COUNT (BEAKER) (test 0.60 K/ L 0.30-0.82 xyzk=116) EOSINOPHILS ABSOLUTE COUNT (BEAKER) (test 0.00 K/ L 0.04-0.54 ubcv=782) BASOPHILS ABSOLUTE COUNT (BEAKER) (test 0.02 K/ L 0.01-0.08 tmui=309) IMMATURE GRANULOCYTES-RELATIVE PERCENT (BEAKER) 1 % 0-1 (test tdph=7037) [id number] 04:26:00 Test Item Value Reference Range Comments PREALBUMIN (BEAKER) (test cevg=779) 25 mg/dL 14-45 [id number] 04:24:00 Test Item Value Reference Range Comments PHOSPHORUS (BEAKER) (test afcz=395) 3.5 mg/dL 2.3-4.7 [id number] 04:24:00 Test Item Value Reference Range Comments MAGNESIUM (BEAKER) (test csva=471) 2.0 mg/dL 1.6-2.6 BASIC METABOLIC [id number] 04:24:00 Test Item Value Reference Range Comments SODIUM (BEAKER) (test 140 meq/L 136-145 wbdg=852) POTASSIUM (BEAKER) (test 3.9 meq/L 3.5-5.1 nilk=610) CHLORIDE (BEAKER) (test 105 meq/L 98-107 msmx=811) CO2 (BEAKER) (test 26 meq/L 22-29 asra=016) BLOOD UREA NITROGEN 11 mg/dL 7-21 (BEAKER) (test xzql=922) CREATININE (BEAKER) (test 0.67 mg/dL 0.57-1.25 miin=037) GLUCOSE RANDOM (BEAKER) 129 mg/dL 70-105 (test dchb=599) CALCIUM (BEAKER) (test 9.2 mg/dL 8.4-10.2 wgnb=433) EGFR (BEAKER) (test 127 mL/min/1.73 sq m ESTIMATED GFR IS NOT lolk=7916) ACCURATE CREATININE CLEARANCE IN PREDICTING GLOMERULAR FILTRATION RATE. ESTIMATED GFR IS NOT APPLICABLE FOR DIALYSIS PATIENTS. PROTHROMBIN [id number] 04:19:00 Test Item Value Reference Range Comments PROTIME (BEAKER) (test gnqb=349) 14.5 seconds 11.7-14.7 INR (BEAKER) (test szyp=982) 1.1 <=5.9 RECOMMENDED COUMADIN/WARFARIN INR THERAPY RANGESSTANDARD DOSE: 2.0 - 3.0 Includes: PROPHYLAXIS forvenous thrombosis, systemic embolization; TREATMENT for venous thrombosis and/or pulmonary embolus.HIGH RISK: Target INR is 2.5-3.5 for patients with mechanical heart valves.[id number] 04:19:00 Test Item Value Reference Range Comments PARTIAL THROMBOPLASTIN TIME (BEAKER) (test 29.7 seconds 22.5-36.0 fvyn=109) POCT-GLUCOSE [id number] 01:04:00 Test Item Value Reference Range Comments POC-GLUCOSE METER (BEAKER) 128 mg/dL 70-110 TESTED AT [address] (test uuab=7000) [facility] [address] POCT-GLUCOSE [id number] 18:19:00 Test Item Value Reference Range Comments POC-GLUCOSE METER (BEAKER) 93 mg/dL 70-110 TESTED AT [address] (test ibpk=2862) [facility] [address] POCT-GLUCOSE [id number] 11:44:00 Test Item Value Reference Range Comments POC-GLUCOSE METER (BEAKER) 87 mg/dL 70-110 TESTED AT [address] (test fckf=3379) [facility] [address] POCT-GLUCOSE [id number] 06:13:00 Test Item Value Reference Range Comments POC-GLUCOSE METER (BEAKER) 158 mg/dL 70-110 TESTED AT [address] (test tvvh=8064) [facility] [address] BLOOD GAS, [id number] 04:53:00 Test Item Value Reference Range Comments PH VENOUS (BEAKER) (test tgnt=815) 7.48 7.32-7.42 PCO2 VENOUS (BEAKER) (test lvbc=054) 37 mmHg 41-51 PO2 VENOUS (BEAKER) (test cgwb=573) 94 mmHg 25-40 O2 SATURATION VENOUS (BEAKER) (test opwz=242) 97.7 % 40.0-70.0 HCO3 VENOUS (BEAKER) (test ydlf=999) 27 mmol/L 21-29 BASE EXCESS VENOUS (BEAKER) (test oubf=365) 3.7 mmol/L -2.0-3.0 PATIENT TEMPERATURE (BEAKER) (test shha=5732) 37.0 C RAD, CHEST, 1 VIEW, NON [id number] 04:42:00Reason for exam:->s/p tracheostomyShould this be performed [...] Carrillo Verified Date/Time: 06/10/2018 04:42:37 Reading Location: [address] Reading Room [id number] 04:29:00 Test Item Value Reference Range Comments MAGNESIUM (BEAKER) (test 2.2 mg/dL 1.6-2.6 Specimen slightly hemolyzed wpmt=960) [id number] 04:29:00 Test Item Value Reference Range Comments PHOSPHORUS (BEAKER) (test 3.7 mg/dL 2.3-4.7 Specimen slightly hemolyzed uojb=761) BASIC METABOLIC [id number] 04:29:00 Test Item Value Reference Range Comments SODIUM (BEAKER) (test 139 meq/L 136-145 jsjl=435) POTASSIUM (BEAKER) (test 4.0 meq/L 3.5-5.1 Specimen slightly avvc=884) hemolyzed CHLORIDE (BEAKER) (test 105 meq/L 98-107 dvtc=309) CO2 (BEAKER) (test 24 meq/L 22-29 xszd=700) BLOOD UREA NITROGEN 11 mg/dL 7-21 (BEAKER) (test qmde=897) CREATININE (BEAKER) (test 0.70 mg/dL 0.57-1.25 Specimen slightly raxj=008) hemolyzed GLUCOSE RANDOM (BEAKER) 159 mg/dL 70-105 (test zmnt=874) CALCIUM (BEAKER) (test 9.4 mg/dL 8.4-10.2 onyt=926) EGFR (BEAKER) (test 121 mL/min/1.73 sq m ESTIMATED GFR IS NOT vmlp=7339) ACCURATE CREATININE CLEARANCE IN PREDICTING GLOMERULAR FILTRATION RATE. ESTIMATED GFR IS NOT APPLICABLE FOR DIALYSIS PATIENTS. [id number] 04:18:00 Test Item Value Reference Range Comments PARTIAL THROMBOPLASTIN TIME (BEAKER) (test 24.5 seconds 22.5-36.0 ftcz=348) PROTHROMBIN TIME/[id number] 04:17:00 Test Item Value Reference Range Comments PROTIME (BEAKER) (test dcts=062) 13.7 seconds 11.7-14.7 INR (BEAKER) (test kftd=749) 1.0 <=5.9 RECOMMENDED COUMADIN/WARFARIN INR THERAPY RANGESSTANDARD DOSE: 2.0 - 3.0 Includes: PROPHYLAXIS forvenous thrombosis, systemic embolization; TREATMENT for venous thrombosis and/or pulmonary embolus.HIGH RISK: Target INR is 2.5-3.5 for patients with mechanical heart valves.CBC W/PLT COUNT & AUTO [id number] 04:06:00 Test Item Value Reference Range Comments WHITE BLOOD CELL COUNT (BEAKER) (test fmlr=896) 17.9 K/ L 3.5-10.5 RED BLOOD CELL COUNT (BEAKER) (test mtmu=826) 4.34 M/ L 4.63-6.08 HEMOGLOBIN (BEAKER) (test lbsd=044) 13.7 GM/DL 13.7-17.5 HEMATOCRIT (BEAKER) (test jxgd=278) 42.8 % 40.1-51.0 MEAN CORPUSCULAR VOLUME (BEAKER) (test nxcj=778) 98.6 fL 79.0-92.2 MEAN CORPUSCULAR HEMOGLOBIN (BEAKER) (test 31.6 pg 25.7-32.2 ndrj=196) MEAN CORPUSCULAR HEMOGLOBIN CONC (BEAKER) (test 32.0 GM/DL 32.3-36.5 hucv=762) RED CELL DISTRIBUTION WIDTH (BEAKER) (test 14.4 % 11.6-14.4 mbkf=299) PLATELET COUNT (BEAKER) (test hfsp=240) 194 K/CU MM 150-450 MEAN PLATELET VOLUME (BEAKER) (test yysk=081) 10.5 fL 9.4-12.4 NUCLEATED RED BLOOD CELLS (BEAKER) (test 0 /100 WBC 0-0 fptp=256) NEUTROPHILS RELATIVE PERCENT (BEAKER) (test 92 % wgng=278) LYMPHOCYTES RELATIVE PERCENT (BEAKER) (test 2 % bohc=672) MONOCYTES RELATIVE PERCENT (BEAKER) (test 5 % gsgx=824) EOSINOPHILS RELATIVE PERCENT (BEAKER) (test 0 % hpbx=456) BASOPHILS RELATIVE PERCENT (BEAKER) (test 0 % ocgm=409) NEUTROPHILS ABSOLUTE COUNT (BEAKER) (test 16.35 K/ L 1.78-5.38 aomv=036) LYMPHOCYTES ABSOLUTE COUNT (BEAKER) (test 0.40 K/ L 1.32-3.57 unpt=277) MONOCYTES ABSOLUTE COUNT (BEAKER) (test 0.86 K/ L 0.30-0.82 ncom=331) EOSINOPHILS ABSOLUTE COUNT (BEAKER) (test 0.00 K/ L 0.04-0.54 ujtr=415) BASOPHILS ABSOLUTE COUNT (BEAKER) (test 0.03 K/ L 0.01-0.08 tmqi=363) IMMATURE GRANULOCYTES-RELATIVE PERCENT (BEAKER) 1 % 0-1 (test sdee=6904) POCT-GLUCOSE [id number] 01:05:00 Test Item Value Reference Range Comments POC-GLUCOSE METER (BEAKER) 161 mg/dL 70-110 TESTED AT [address] (test rhvk=2815) [facility] [address] RAD, CHEST, 1 VIEW, NON [id number] 22:19:00Reason for exam:->Laryngeal massShould this be performed [...] MDReport Verified Date/Time: 06/09/2018 22:19:49 Reading Location: [address] Consult Reading Room 10: 19 PMRAD, CHEST, 1 VIEW, NON [id number] 20:37:00Reason for exam:-> Laryngeal massShould this be [...] MDReport Verified Date/Time: 01/2019 20:37:30 Reading Location: [address] Reading Room RAD, CHEST, 1 VIEW, NON [id number] 20:18:00Reason for exam:->Post-opShould this be performed at [...] MDReport Verified Date/Time: 06/09/2018 20:18:45 Reading Location: [address] Reading Room CBC W/PLT COUNT & AUTO [id number] 19:32:00 Test Item Value Reference Range Comments WHITE BLOOD CELL COUNT (BEAKER) (test iznf=291) 22.9 K/ L 3.5-10.5 RED BLOOD CELL COUNT (BEAKER) (test srtf=667) 4.82 M/ L 4.63-6.08 HEMOGLOBIN (BEAKER) (test stac=359) 15.5 GM/DL 13.7-17.5 HEMATOCRIT (BEAKER) (test gdkl=878) 48.5 % 40.1-51.0 MEAN CORPUSCULAR VOLUME (BEAKER) (test cxkz=276) 100.6 fL 79.0-92.2 MEAN CORPUSCULAR HEMOGLOBIN (BEAKER) (test 32.2 pg 25.7-32.2 xzor=797) MEAN CORPUSCULAR HEMOGLOBIN CONC (BEAKER) (test 32.0 GM/DL 32.3-36.5 foeb=478) RED CELL DISTRIBUTION WIDTH (BEAKER) (test 14.5 % 11.6-14.4 cpqi=434) PLATELET COUNT (BEAKER) (test ponj=008) 201 K/CU MM 150-450 MEAN PLATELET VOLUME (BEAKER) (test unfz=153) 10.1 fL 9.4-12.4 NUCLEATED RED BLOOD CELLS (BEAKER) (test 0 /100 WBC 0-0 rpjr=684) (CELLAVISION MANUAL DIFF)2018-06-09 19:32:00 Test Item Value Reference Range Comments NEUTROPHILS - REL (CELLAVISION)(BEAKER) (test 94 % mrzq=6255) MONOCYTES - REL (CELLAVISION)(BEAKER) (test 4 % jjuj=3556) BANDS - REL (CELLAVISION)(BEAKER) (test 1 % 0-10 xadb=5780) NEUTROPHILS - ABS (CELLAVISION)(BEAKER) (test 21.53 K/ul 1.78-5.38 qmbc=8748) MONOCYTES - ABS (CELLAVISION)(BEAKER) (test 0.92 K/uL 0.30-0.82 gfpd=5524) BANDS - ABS (CELLAVISION)(BEAKER) (test 0.23 K/uL 0.00-0.80 xfmv=2299) TOTAL COUNTED (BEAKER) (test tkpm=5403) 100 RBC MORPHOLOGY (BEAKER) (test vagq=298) Normal PLT MORPHOLOGY (BEAKER) (test erwt=954) Normal HYPERSEGMENTATION (CELLAVISION)(BEAKER) (test Present jvjz=5694) ARTIFACT (CELLAVISION)(BEAKER) (test zqbk=5034) Present PLATELET CONCENTRATION (CELLAVISION)(BEAKER) Adequate (test ppml=2711) Received comment: User comments: Slide comments:[id number] 19:25:00 Test Item Value Reference Range Comments PHOSPHORUS (BEAKER) (test upmg=057) 4.7 mg/dL 2.3-4.7 [id number] 19:25:00 Test Item Value Reference Range Comments MAGNESIUM (BEAKER) (test rcpg=953) 2.2 mg/dL 1.6-2.6 BASIC METABOLIC [id number] 19:25:00 Test Item Value Reference Range Comments SODIUM (BEAKER) (test 139 meq/L 136-145 zjgr=178) POTASSIUM (BEAKER) (test 3.9 meq/L 3.5-5.1 zonl=153) CHLORIDE (BEAKER) (test 103 meq/L 98-107 ytfn=133) CO2 (BEAKER) (test 27 meq/L 22-29 kiig=911) BLOOD UREA NITROGEN 15 mg/dL 7-21 (BEAKER) (test wwgd=913) CREATININE (BEAKER) (test 0.81 mg/dL 0.57-1.25 fjnl=868) GLUCOSE RANDOM (BEAKER) 139 mg/dL 70-105 (test yvap=509) CALCIUM (BEAKER) (test 9.3 mg/dL 8.4-10.2 qtct=939) EGFR (BEAKER) (test 102 mL/min/1.73 sq m ESTIMATED GFR IS NOT oxng=5085) ACCURATE CREATININE CLEARANCE IN PREDICTING GLOMERULAR FILTRATION RATE. ESTIMATED GFR IS NOT APPLICABLE FOR DIALYSIS PATIENTS. PROTHROMBIN [id number] 19:18:00 Test Item Value Reference Range Comments PROTIME (BEAKER) (test obfm=948) 13.0 seconds 11.7-14.7 INR (BEAKER) (test jiuf=098) 1.0 <=5.9 RECOMMENDED COUMADIN/WARFARIN INR THERAPY RANGESSTANDARD DOSE: 2.0 - 3.0 Includes: PROPHYLAXIS forvenous thrombosis, systemic embolization; TREATMENT for venous thrombosis and/or pulmonary embolus.HIGH RISK: Target INR is 2.5-3.5 for patients with mechanical heart valves.[id number] 19:18:00 Test Item Value Reference Range Comments PARTIAL THROMBOPLASTIN TIME (BEAKER) (test 24.0 seconds 22.5-36.0 nfsj=196) [id number] 12:47:00 Test Item Value Reference Range Comments HEMOGLOBIN (BEAKER) (test mjel=601) 15.7 GM/DL 13.7-17.5 PLATELET [id number] 12:47:00 Test Item Value Reference Range Comments PLATELET COUNT (BEAKER) (test wvpk=571) 203 K/CU MM 150-450
[2018-09-07] MEDS ORDERED: LEVALBUTEROL 1.25 MG/3 ML NEB ONE (16:48)
[2018-09-07 17:01] LABS: Absolute Monocytes 0.8 K/uL (0.1-1.3); Basophils % 1.3 % (0-1.3); Eosinophils % 1.1 % (0-4.4); Hematocrit 41.7 % (39.6-49.0); Lymphocytes % 10.4 % (15.3-44.8); MPV 9.8 fL (7.6-11.3); Monocytes % 7.7 % (3.3-12.3); RBC Red Blood Cell Count 4.63 M/uL (4.33-5.43)
[2018-09-07] MEDS ORDERED: DIPHENHYDRAMINE 50 MG/ML VIAL ONE (17:08)
[2018-09-07] MEDS ORDERED: MEPERIDINE HCL 25 MG/0.5 ML ONE (17:08)
[2018-09-07] MEDS ORDERED: ONDANSETRON 4 MG/2 ML VIAL ONE (17:08)
--- NOTE | 2018-09-07 17:15 | RAD REPORT ---
EXAM DESCRIPTION: RAD - Chest Single View - 09/07/2018 4:47 pm CLINICAL HISTORY: Cough COMPARISON: August 30 TECHNIQUE: AP portable chest image was obtained 1636 hour . FINDINGS: Lung volumes are low. This accentuates the baseline interstitial pattern. No consolidation or mass seen. Minimal interstitial edema or infiltrate is potentially masked. Heart and vasculature are normal. No measurable pleural effusion and no pneumothorax. No acute bony abnormality seen. No ac eyak aortic findings suspected. IMPRESSION: Shallow inspiration film without acute cardiopulmonary finding. Minimal interstitial edema or infiltrate is potentially masked by the shallow inspiration.
[2018-09-07 17:16] LABS: BUN Blood Urea Nitrogen 10 mg/dL (7-18); Bicarbonate 26 mmol/L (21-32); Glucose Level 124 mg/dL (74-106); Sodium Level 142 mmol/L (136-145)
--- NOTE | 2018-09-07 18:06 | RAD REPORT ---
EXAM DESCRIPTION: CT - Soft Tissue Neck W/Contr - 09/07/2018 5:22 pm CLINICAL HISTORY: Cough, worsening shortness of breath COMPARISON: CT August 29, 2018 TECHNIQUE: During dynamic enhancement using 100 milliliters nonionic IV contrast, axial 5 millimeter thick images of the neck were obtained. All CT scans are performed using dose optimization technique as appropriate and may include automated exposure control or mA/KV adjustment according to patient size. FINDINGS: Intracranial portion of the examination is unremarkable. No globe or orbital content abnor mality. Mastoid air cells and paranasal sinuses are clear. The small fluid collection with edematous/inflammatory stranding in the right-side submandibular beau on has improved but not yet fully resolved. No enlarging collections seen. There is extensive postsur gical change. Neck soft tissues are otherwise unchanged from the August 29 study. No abnormality seen to explain worse laura shortness of breath. IMPRESSION: Infectious/inflammatory changes and suspected abscess right submandibular region, detail ed August 29, have improved but not fully resolved. No abnormality seen that would explain worsening shortness of breath or cough.
--- NOTE | 2018-09-07 18:20 | ER ---
Nurse's Notes [facility] Name: Akin Pugh Age: 48 yrs Sex: Male : 1970 Arrival Date: 09/07/2018 Time: 15:54 Bed 2 Private MD: Diagnosis: Chronic obstructive pulmonary disease with (acute) exacerbation;Submandibular infection, ongoing treatment Presentation: 09/07 16:03 Presenting complaint: Worsening SOB and nonproductive cough since this morning. Also hb reports dizziness and "feels shaky.". Transition of care: patient was not received from another setting of care. Onset of symptoms was September 07, 2018. Risk Assessment: Do you want to hurt yourself or someone else? Patient reports no desire to harm self or others. Initial Sepsis Screen: Does the patient meet any 2 criteria? No. Patient's initial sepsis screen is negative. Does the patient have a suspected source of infection? No. Patient's initial sepsis screen is negative. Care prior to arrival: None. 16:03 Method Of Arrival: Ambulatory hb 16:03 Acuity: PAO 3 hb Historical: - Allergies: 16:05 Ampicillin; hb 16:05 Iodinated Contrast Media - IV Dye; hb 16:05 Iodine; hb 16:05 Levaquin; hb - Home Meds: 16:05 escitalopram oxalate Oral [Active]; Levoxyl Oral [Active]; hb - PMHx: 16:05 Asthma; COPD; THROAT CA; hb - PSHx: 16:05 Appendectomy; trach x2; chest tube; laryngectomy; hb - Immunization history:: Adult Immunizations up to date. - Social history:: Smoking status: Patient/guardian denies using tobacco. - Ebola Screening: : No symptoms or risks identified at this time. - Family history:: not pertinent. - Hospitalizations: : No recent hospitalization is reported. Screenin:20 Abuse screen: Denies threats or abuse. Nutritional screening: No deficits noted. aa5 Tuberculosis screening: No symptoms or risk factors identified. Fall Risk None identified. Assessment: 16:20 General: Appears uncomfortable, Behavior is calm, cooperative. Pain: Complains of pain aa5 in whole body Pain currently is 7 out of 10 on a pain scale. Quality of pain is described as aching, Pain began 2 hours ago. Is continuous. Neuro: Level of Consciousness is awake, alert, obeys commands, Oriented to person, place, time, situation. Cardiovascular: Heart tones S1 S2 present Rhythm is regular. Respiratory: Reports shortness of breath Tracheostomy noted Airway is patent Respiratory effort is even, unlabored, Respiratory pattern is regular, symmetrical, Breath sounds are clear bilaterally. GI: No signs and/or symptoms were reported involving the gastrointestinal system. : No signs and/or symptoms were reported regarding the genitourinary system. Derm: Skin is pink, warm \\T\\ dry. Redness noted to anterior aspect of neck. Pt is currently receiving IV antibiotic therapy for abscess to right side of neck and it's being treated by ENT, Dr. Pardo. No drainage noted to abscess, only quater-sized raised area noted to right side of neck. Musculoskeletal: Range of motion: intact in all extremities. 16:35 Reassessment: Deep suction completed by pt per pt's request. . aa5 16:52 Reassessment: Pt given Benadryl, pt reports he gets itching with IV contrast. . aa5 17:50 Reassessment: Patient is alert, oriented x 3, equal unlabored respirations, skin aa5 warm/dry/pink. Patient states feeling better. Pain: Pain currently is 6 out of 10 on a pain scale. 18:46 Reassessment: Neck wound re dressed with gauze and paper tape. la1 Vital Signs: 16:03 BP 156 / 86; Pulse 101; Resp 20; Temp 98.4; Pulse Ox 100% on R/A; Weight 86.18 kg; hb Height 6 ft. 0 in. (182.88 cm); Pain 7/10; 17:50 BP 148 / 84; Pulse 88; Resp 18 S; Pulse Ox 100% on R/A; Pain 6/10; aa5 16:03 Body Mass Index 25.77 (86.18 kg, 182.88 cm) hb ED Course: 15:54 Patient arrived in ED. mr 16:04 Triage completed. hb 16:05 Arm band placed on right wrist. hb 16:15 Jason Anderson MD is Attending Physician. rn 16:17 Jody Villegas, JEAN is Primary Nurse. aa5 16:20 Patient has correct armband on for positive identification. Bed in low position. Call aa5 light in reach. Side rails up X 1. 16:49 XRAY Chest (1 view) In Process Unspecified. EDMS 17:13 Rylee Givens MD supervisor blueprinting and photocopy. rp3 17:22 CT completed. Patient tolerated procedure well. Patient moved to CT. Patient moved back mw3 from CT. 17:23 CT Soft Tissue Neck W/contr In Process Unspecified. EDMS 18:00 No provider procedures requiring assistance completed. Patient did not have IV access aa5 during this emergency room visit. 18:19 Keya Pardo MD is Referral Physician. rn Administered Medications: 16:29 Drug: Xopenex 1.25 mg Route: Inhalation; aa5 16:50 Drug: Zofran 4 mg Route: IVP; Site: PICC; aa5 17:00 Follow up: Response: No adverse reaction aa5 16:52 Drug: Benadryl 50 mg {Note: VO for Benadryl received at 1645 .} Route: IVP; Site: PICC; aa5 17:00 Follow up: Response: No adverse reaction aa5 16:54 Drug: Demerol 25 mg Route: IVP; Site: PICC; aa5 17:00 Follow up: Response: No adverse reaction aa5 Outcome: 18:20 Discharge ordered by . rn 18:46 Discharged to home ambulatory. la1 18:46 Condition: stable 18:46 Discharge instructions given to patient, Instructed on discharge instructions, follow up and referral plans. medication usage, Demonstrated understanding of instructions, follow-up care, medications, Prescriptions given X 1. 18:49 Patient left the ED. la1 Signatures: Dispatcher [employer] EDVT Aury Prescott Jason Anderson MD MD rn Calderon, Audri, RN RN aa5 Anthony Franklin RN RN la1 Ya Acosta RN RN Rylee Givens MD MD rp3 Brigitte Molina mw3
--- NOTE | 2018-09-07 18:20 | EDPHYS ---
Physician Documentation [facility] Name: Akin Pugh Age: 48 yrs Sex: Male : 1970 Arrival Date: 09/07/2018 Time: 15:54 Bed 2 Private MD: ED Physician Jason Anderson HPI: 09/07 18:10 This 48 yrs old Male presents to ER via Ambulatory with complaints of rn Breathing Difficulty, Nausea. 18:10 This 48 yrs old Male presents to ER via Ambulatory with complaints of rn Breathing Difficulty, Nausea. 18:10 The patient has shortness of breath at rest. Onset: The symptoms/episode began/occurred rn today. Duration: The symptoms are intermittent. The patient's shortness of breath is aggravated by coughing, is alleviated by nothing. Severity of symptoms: At their worst the symptoms were mild in the emergency department the symptoms are unchanged. The patient has experienced similar episodes in the past. Reports just here earlier today for IV therapy, getting IV abx for submandibular abscess, was fine earlier, approx 2 hours [employer]IO [employer] reports hard to take deep breath, "hurts all over", and neck still hurts, doesn't feel like it has gotten worse, just can't explain his symptoms. No fever. No trauma. Reports doesn't feel like tracheostomy is clogged either. No vomiting/diarrhea. . Historical: - Allergies: 16:05 Ampicillin; hb 16:05 Iodinated Contrast Media - IV Dye; hb 16:05 Iodine; hb 16:05 Levaquin; hb - Home Meds: 16:05 escitalopram oxalate Oral [Active]; Levoxyl Oral [Active]; hb - PMHx: 16:05 Asthma; COPD; THROAT CA; hb - PSHx: 16:05 Appendectomy; trach x2; chest tube; laryngectomy; hb - Immunization history:: Adult Immunizations up to date. - Social history:: Smoking status: Patient/guardian denies using tobacco. - Ebola Screening: : No symptoms or risks identified at this time. - Family history:: not pertinent. - Hospitalizations: : No recent hospitalization is reported. ROS: 18:10 Constitutional: Negative for fever, chills, and weight loss, Eyes: Negative for injury, rn pain, redness, and discharge, ENT: Negative for injury Neck: + neck pain and persistent swelling Cardiovascular: Negative for chest pain, palpitations, and edema, Respiratory: + cough and sob Abdomen/GI: Negative for abdominal pain, diarrhea, and constipation, MS/Extremity: Negative for injury and deformity, Skin: Negative for injury, rash, and discoloration, Neuro: Negative for numbness, tingling, and seizure. Exam: 18:10 Constitutional: This is a well developed, well nourished patient who is awake, alert, rn and in no acute distress. Ambulatory to room without assistance or difficulty breathing. Head/Face: Normocephalic, atraumatic. Neck: Patent tracheostomy without much secretions Cardiovascular: Regular rate and rhythm. No pulse deficits. Respiratory: Lungs have equal breath sounds bilaterally, clear to auscultation. Mild tachypnea, no retractions, + intermittent cough. Skin: Warm, dry, and no evidence of cellulitis. MS/ Extremity: Pulses equal, no cyanosis. Neurovascular intact. Full, normal range of motion. Equal circumference. Neuro: Awake and alert, GCS 15. Cranial nerves II-XII grossly intact. Motor strength 5/5 in all extremities. Sensory grossly intact. Cerebellar exam normal. Normal gait. Vital Signs: 16:03 BP 156 / 86; Pulse 101; Resp 20; Temp 98.4; Pulse Ox 100% on R/A; Weight 86.18 kg; hb Height 6 ft. 0 in. (182.88 cm); Pain 7/10; 17:50 BP 148 / 84; Pulse 88; Resp 18 S; Pulse Ox 100% on R/A; Pain 6/10; aa5 16:03 Body Mass Index 25.77 (86.18 kg, 182.88 cm) hb MDM: 16:15 Patient medically screened. rn 18:10 Differential diagnosis: Anxiety Reaction Chronic Obstructive Pulmonary Disease rn pneumonia, pulmonary edema, worsening abscess, pneumothorax. Data reviewed: vital signs, nurses notes, lab test result(s), radiologic studies, CT scan, plain films, and as a result, I will discharge patient. Counseling: I had a detailed discussion with the patient and/or guardian regarding: the historical points, exam findings, and any diagnostic results supporting the discharge/admit diagnosis, lab results, radiology results, the need for outpatient follow up, to return to the emergency department if symptoms worsen or persist or if there are any questions or concerns that arise at home. Special discussion: I discussed with the patient/guardian in detail that at this point there is no indication for admission to the hospital. It is understood, however, that if the symptoms persist or worsen the patient needs to return immediately for re-evaluation. ED course: CT shows some improvement of fluid collection, CXR clear, most likely COPD exacerbation, will dc home with steroids and has inhaler at home, declines pain medication because we can't write for hydrocodone 10mg.. 09/07 16:23 Order name: CBC with Diff rn 09/07 16:23 Order name: Basic Metabolic Panel; Complete Time: 18:00 rn 09/07 16:23 Order name: XRAY Chest (1 view); Complete Time: 18:00 rn 09/07 16:29 Order name: CT Soft Tissue Neck W/contr; Complete Time: 18:10 rn 09/07 17:54 Order name: CBC Smear Scan EDNM 09/07 16:23 Order name: Suction; Complete Time: 17:44 rn Administered Medications: 16:29 Drug: Xopenex 1.25 mg Route: Inhalation; aa5 16:50 Drug: Zofran 4 mg Route: IVP; Site: PICC; aa5 17:00 Follow up: Response: No adverse reaction aa5 16:52 Drug: Benadryl 50 mg {Note: VO for Benadryl received at 1645 .} Route: IVP; Site: PICC; aa5 17:00 Follow up: Response: No adverse reaction aa5 16:54 Drug: Demerol 25 mg Route: IVP; Site: PICC; aa5 17:00 Follow up: Response: No adverse reaction aa5 Disposition: 09/07/18 18:20 Discharged to Home. Impression: Chronic obstructive pulmonary disease with (acute) exacerbation, Submandibular infection, ongoing treatment. - Condition is Stable. - Discharge Instructions: Chronic Obstructive Pulmonary Disease. - Prescriptions for Prednisone 20 mg Oral Tablet - take 3 tablet by ORAL route once daily for 5 days; 15 tablet. - Medication Reconciliation Form, Thank You Letter, Antibiotic Education, Prescription Opioid Use form. - Follow up: Keya Pardo MD; When: As needed; Reason: Recheck today's complaints, Re-evaluation by your physician. - Problem is an ongoing problem. - Symptoms have improved. Signatures: Dispatcher [employer] EDNM Jason Anderson MD MD rn Villegas, Jody, RN RN aa5 Anthony Franklin RN RN la1 Ya Acosta, RN RN Corrections: (The following items were deleted from the chart) 17:44 16:23 IV Saline Lock ordered. jossie aa5 18:16 18:10 Constitutional: Negative for fever, chills, and weight loss, Eyes: Negative for rn injury, pain, redness, and discharge, ENT: Negative for injury Neck: + neck pain and persistent swelling Respiratory: + cough and sob Abdomen/GI: Negative for abdominal pain, diarrhea, and constipation, MS/Extremity: Negative for injury and deformity, Skin: Negative for injury, rash, and discoloration, Neuro: Negative for numbness, tingling, and seizure, rn 18:49 18:20 09/07/2018 18:20 Discharged to Home. Impression: Chronic obstructive pulmonary la1 disease with (acute) exacerbation; Submandibular infection, ongoing treatment. Condition is Stable. Forms are Medication Reconciliation Form, Thank You Letter, Antibiotic Education, Prescription Opioid Use. Follow up: Keya Pardo; When: As needed; Reason: Recheck today's complaints, Re-evaluation by your physician. Problem is an ongoing problem. Symptoms have improved. rn
[2018-09-07 18:53] LABS: Urine White Blood Cell Casts OK
[2018-09-07 18:54] LABS: Blood Morphology Comment NOT SEEN (NOT SEEN); Platelet Estimate DECR
[2018-09-07 19:24] VITALS: BP 156/86; TEMP 98.4; O2SAT 100
== END 2018-09-07 18:49 | disposition home or self-care (01) ==
LOC: ER 15:50
DX: J44.1 Chronic obstructive pulmonary disease with (acute) exacerbation (principal); M27.2 Inflammatory conditions of jaws; Z88.1 Allergy status to other antibiotic agents; Z85.01 Personal history of malignant neoplasm of esophagus; Z91.048 Other nonmedicinal substance allergy status
CPT/HCPCS: 36415; 70491; 71045; 80048; 85025; 96374; 96375; 99284; J2175; J2405; Q9967

== ENCOUNTER 2018-09-11 13:25 | Emergency (ER) | payer OTHER, SELFPAY ==
--- OUTSIDE RECORDS SUMMARY | 2018-09-11 13:42 | XMS REPORT | Clinical Summary ---
:1970 Author Organization [facility] Address [address] [place] [address] Care Team Providers Name Role Phone Pcp, [...] Dx); 07/24/2018 Katty Wright MD Tracheostomy care ([facility]); Guilherme Fraire History of laryngeal cancer; MD Vinnie Presence of tracheostomy ([facility]); Acute postoperative pain; S/P flap graft; S/P [...] Pre-Admission Resource, Oqmt Testing Preadmit Phone after 09/10/2017 Social History Tobacco Use Types Packs/Day Years [...] HEMOGLOBIN Routine 06/09/2018 12:28 PM CDT after 09/10/2017 Results Creatinine (08/15/2018 7:02 AM CDT) Creatinine 0.63 0.57 - 1.25 mg/dL [facility] EGFR 136Comment: ESTIMATED GFR IS mL/min/1.73 sq m [facility] NOT ACCURATE CREATININE [facility] CLEARANCE IN PREDICTING GLOMERULAR FILTRATION RATE. ESTIMATED GFR IS NOT APPLICABLE FOR DIALYSIS PATIENTS. Specimen Blood Performing Organization Address City/[facility]/Zipcode Phone Number [address] [address] CENTER Vancomycin level, trough (08/13/2018 10:59 PM CDT)Only the most recent of3 resultswithin the time period is included. Vancomycin Tr 7.5 (L) 10.0 - 20.0 ug/mL [facility] Specimen Blood Performing Organization Address City/[facility]/Zipcode Phone Number [address] [address] [phone] [facility] esoph swallow funct with cine video (08/12/2018 3:30 PM CDT)Only the most recent of2 resultswithin the time period is included. Specimen Narrative Performed At FINAL REPORT [facility] Esophagram. HISTORY: Status post laryngectomy. COMPARISON STUDY: [...] MD Report Verified Date/Time:08/12/2018 18:19:29 Reading Location: [facility] C0[facility] Ortho Consult Reading Room Procedure Note Interface, [...] Fluoroscopy time: 0.65 minutes. 46 images. Signed: Gauedncio Barrett MD Report Verified Date/Time: 08/12/2018 18:19:29 Reading Location: [facility] [id number] Ortho Consult Reading Room Performing Organization Address City/State/Zipcode Phone Number [facility] CBC with platelet count + automated diff (08/12/2018 3:58 AM CDT)Only the most recent of27 resultswithin the time period is included. WBC 7.1 3.5 - 10.5 K/L [facility] RBC 3.77 (L) 4.63 - 6.08 M/L [facility] Hemoglobin 10.9 (L) 13.7 - 17.5 GM/DL [facility] Hematocrit 35.7 (L) 40.1 - 51.0 % [facility] MCV 94.7 (H) 79.0 - 92.2 fL [facility] MCH 28.9 25.7 - 32.2 pg [facility] MCHC 30.5 (L) 32.3 - 36.5 GM/DL [facility] RDW 14.6 (H) 11.6 - 14.4 % [facility] Platelets 318 150 - 450 K/CU MM [facility] MPV 9.8 9.4 - 12.4 fL [facility] nRBC 0 0 - 0 /100 WBC [facility] % Neutros 72 % [facility] % Lymphs 10 % [facility] % Monos 12 % [facility] % Eos 4 % [facility] [place] % Baso 1 % [facility] # Neutros 5.08 1.78 - 5.38 K/L [facility] # Lymphs 0.68 (L) 1.32 - 3.57 K/L [facility] # Monos 0.86 (H) 0.30 - 0.82 K/L [facility] # Eos 0.29 0.04 - 0.54 K/L [facility] # Baso 0.04 0.01 - 0.08 K/L [facility] Immature Granulocytes-Relative 1 0 - 1 % [facility] Specimen Blood Performing Organization Address City/[facility] Phone Number [facility] [address] [place] [address] [phone] [place] TSH/Free T4 If Indicated (08/11/2018 4:59 PM CDT)Only the most recent of4 resultswithin the time period is included. TSH 0.75 0.35 - 4.94 uIU/mL [facility] Specimen Blood Performing Organization Address City/[facility] Phone Number [facility] [address] [place] [address] [phone] [place] Wound culture + gram stain (08/11/2018 4:01 PM CDT) Result No growth [facility] Gram Stain Result 2+ WBCs [facility] Gram Stain Result 1+ gram positive cocci in [facility] Gram Stain Result <1+ gram variable rods [facility] Specimen Wound Performing Organization Address [facility] Phone Number [facility] [address] [place] [address] [phone] [place] INTRAOPERATIVE PATH REPORT - SCAN (08/06/2018 5:45 PM CDT)Only the most recent of4 resultswithin the time period is included. Narrative Performed At RHYTHM STRIP - SCAN (07/28/2018 10:30 AM CDT)Only the most recent of3 resultswithin the time period is included. Narrative Performed At Manual Differential (07/24/2018 4:17 AM CDT)Only the most recent of13 resultswithin the time period is included. % Neutros 80 % [facility] % Lymphs 2 % [facility] % Monos 15 % [facility] % Eos 3 % [facility] # Neutros 8.64 (H) 1.78 - 5.38 K/ul [facility] # Lymphs 0.22 (L) 1.32 - 3.57 K/ul [facility] # Monos 1.62 (H) 0.30 - 0.82 K/uL [facility] # Eos 0.32 0.04 - 0.54 K/uL [facility] Total Counted 100 [facility] WBC Morphology Normal [facility] Large Platelet Present [facility] Polychromasia 1+ few [facility] Artifact Present [facility] Platelet Conc Increased [facility] Specimen Blood Narrative Performed At Received comment: [facility] User comments: Slide comments: Performing Organization Address City/[facility] Phone Number [address] [address] CENTER Phosphorus (07/24/2018 4:17 AM CDT)Only the most recent of18 resultswithin the time period is included. Phosphorus 4.8 (H) 2.3 - 4.7 mg/dL [facility] Specimen Blood Performing Organization Address [facility] Phone Number [address] [address] CENTER Magnesium (07/24/2018 4:17 AM CDT)Only the most recent of21 resultswithin the time period is included. Magnesium 2.1 1.6 - 2.6 mg/dL [facility] Specimen Blood Performing Organization Address City/[facility] Phone Number [address] [address] [phone] CENTER Basic Metabolic Panel (07/24/2018 4:17 AM CDT)Only the most recent of24 resultswithin the time period is included. Sodium 140 136 - 145 meq/L [facility] Potassium 4.0 3.5 - 5.1 meq/L [facility] Chloride 99 98 - 107 meq/L [facility] CO2 30 (H) 22 - 29 meq/L [facility] BUN 8 7 - 21 mg/dL [facility] Creatinine 0.71 0.57 - 1.25 mg/dL [facility] Glucose 90 70 - 105 mg/dL [facility] Calcium 8.8 8.4 - 10.2 mg/dL [facility] EGFR 118Comment: ESTIMATED GFR IS mL/min/1.73 sq m [facility] NOT ACCURATE CREATININE [facility] CLEARANCE IN PREDICTING GLOMERULAR FILTRATION RATE. ESTIMATED GFR IS NOT APPLICABLE FOR DIALYSIS PATIENTS. Specimen Blood Performing Organization Address [facility] Phone Number [address] [address] [place] POC-Glucose meter (07/22/2018 5:52 PM CDT)Only the most recent of28 resultswithin the time period is included. POC-Glucose Meter 105Comment: TESTED AT 70 - 110 mg/dL [address] [address] Specimen Blood Performing Organization Address [facility] Phone Number [address] [address] [phone] [place] Sputum Culture + Gram Stain (07/20/2018 12:20 PM CDT)Only the most recent of3 resultswithin the time period is included. Result <1+ Normal respiratory maximo [facility] Gram Stain Result <1+ White blood cells seen [facility] Gram Stain Result 0-5 epithelial cells [facility] Gram Stain Result No organisms seen [facility] Specimen Sputum Performing Organization Address [facility] Phone Number [facility] [address] [place] [address] CENTER PT/aPTT (07/20/2018 4:58 AM CDT)Only the most recent of8 resultswithin the time period is included. Protime 15.6 (H) 11.7 - 14.7 seconds [facility] INR 1.2 <=5.9 [facility] PTT 46.0 (H) 22.5 - 36.0 seconds [facility] Specimen Blood Narrative Performed At RECOMMENDED COUMADIN/WARFARIN INR THERAPY [facility] RANGES STANDARD DOSE: 2.0 - 3.0 Includes: PROPHYLAXIS for venous thrombosis, systemic embolization; TREATMENT for venous thrombosis and/or pulmonary embolus. HIGH RISK: Target INR is 2.5-3.5 for patients with mechanical heart valves. Performing Organization Address City/State/Zipcode Phone Number [facility] [address] [place] [address] [phone] [place] XR chest 1 view portable / bedside (07/19/2018 12:17 PM CDT)Only the most recent of17 resultswithin the time period is included. Specimen Narrative Performed At FINAL REPORT [facility] INDICATION: leukocytosis in setting of recent laryngectomy COMPARISON: July 17 TECHNIQUE: Chest radiograph, single view, portable technique. FINDINGS / IMPRESSION: No pneumonia is demonstrated. Right base linear opacities represent subsegmental atelectasis. Tracheostomy tube and left low neck dissection noted. No pneumomediastinum or pneumothorax demonstrated. Cardiac and mediastinal contours unremarkable. Signed: Randolph Man MD Report Verified Date/Time:07/19/2018 13:59:21 Reading Location: [facility] [id number] Consult Reading Room Procedure Note [...] Report Verified Date/Time: 07/19/2018 13:59:21 Reading Location: [facility] B1 C013W Consult Reading Room Performing Organization Address City/[facility] Phone Number GE RIS Urinalysis w/Microscopic + Reflex to Culture (07/19/2018 10:37 AM CDT)Only the most recent of2 resultswithin the time period is included. Color, UA Light Yellow [facility] Clarity, UA Clear [facility] Specific [place], UA 1.013 1.001 - 1.035 [facility] pH, UA 6.0 5.0 - 8.0 [facility] Protein, UA Negative Negative [facility] Glucose, UA Negative Negative [facility] Ketones, UA Negative Negative [facility] Bilirubin, UA Negative Negative [facility] Blood, UA Trace (A) Negative [facility] Nitrite, UA Negative Negative [facility] Leukocytes, UA Small (A) Negative [facility] Urobilinogen, UA 0.2 0.2 - 1.0 mg/dL [facility] RBC, UA 2 /HPF [facility] WBC, UA 15 /HPF [facility] Mucus Occasional [facility] Hyaline Casts, UA 2 /LPF [facility] Specimen Source [facility] Specimen Urine Performing Organization Address City/[facility]/Zipcode Phone Number [facility] [address] [place] [address] [place] Urine culture (07/19/2018 10:37 AM CDT) Result No growth [facility] Specimen Urine Performing Organization Address City/[facility]/Zipcode Phone Number [address] [phone] [place] T4, free (07/18/2018 9:30 AM CDT)Only the most recent of2 resultswithin the time period is included. Free T4 0.90 0.70 - 1.48 ng/dL [facility] Specimen Blood Performing Organization Address City/[facility]/[place] [address] [phone] [place] Albumin (07/17/2018 3:49 AM CDT)Only the most recent of4 resultswithin the time period is included. Albumin 3.2 (L) 3.5 - 5.0 g/dL [facility] Specimen Blood Performing Organization Address [facility] Phone Number [address] [phone] [place] ECG 12 lead (07/16/2018 8:41 AM CDT)Only the most recent of2 resultswithin the time period is included. Specimen Narrative Performed At Ventricular Rate 116 BPM GE MUSE Atrial Rate 116 BPM P-R Interval 140 ms QRS Duration 70 ms Q-T Interval 328 ms QTC Calculation(Bazett) 455 ms P [place] 49 degrees R [place] 30 degrees T [place] 33 degrees Sinus tachycardia Otherwise normal ECG No previous ECGs available Confirmed by MD Walter Roberto ([id number]) on 07/17/2018 2:09:23 PM Procedure Note Interface, External Ris In - 07/17/2018 2:09 PM CDT Ventricular Rate 116 BPM Atrial Rate 116 BPM P-R Interval 140 ms QRS Duration 70 ms Q-T Interval 328 ms QTC Calculation(Bazett) 455 ms P [place] 49 degrees R [place] 30 degrees T [place] 33 degrees Sinus tachycardia Otherwise normal ECG No previous ECGs available Confirmed by MD Walter Roberto ([id number]) on 07/17/2018 2:09:23 PM Performing Organization Address City/[facility] Phone Number GE MARTINEZ Troponin I (07/16/2018 7:32 AM CDT)Only the most recent of2 resultswithin the time period is included. Troponin I 0.01 0.00 - 0.03 ng/mL [facility] Specimen Blood Narrative Performed At Troponin I (TnI) levels must be interpreted [facility] in the context of the [...] and persistent tachyarrhythmia. Performing Organization Address [facility] Phone Number [address] [address] [place] Blood gas, arterial (07/16/2018 7:32 AM CDT)Only the most recent of5 resultswithin the time period is included. pH, Arterial 7.42 7.35 - 7.45 [facility] pCO2, Arterial 40 35 - 45 mmHg [facility] pO2, Arterial 77 (L) 80 - 90 mmHg [facility] O2 Sat, Arterial 95.8 (L) 96.0 - 97.0 % [facility] HCO3, Arterial 25 21 - 29 mmol/L [facility] Base Excess, Arterial 0.9 -2.0 - 3.0 mmol/L [facility] Patient Temperature 36.8 C [facility] FIO2 44.0 % [facility] Specimen Blood, Arterial Performing Organization Address [facility] Phone Number [address] [address] [place] TRANSFUSION SERVICE REPORT - SCAN (07/15/2018 6:08 PM CDT) Narrative Performed At TSH (07/14/2018 6:48 PM CDT) TSH 6.82 (H) 0.35 - 4.94 uIU/mL [facility] Specimen Blood Performing Organization Address [facility] Phone Number [address] [address] CENTER Prealbumin (07/14/2018 6:48 PM CDT)Only the most recent of2 resultswithin the time period is included. Prealbumin 17Comment: Specimen slightly 14 - 45 mg/dL [facility] hemolyzed [facility] Specimen Blood Performing Organization Address [facility] Phone Number [address] [address] [phone] [place] PTH, intact (07/14/2018 6:48 PM CDT) PTH 16.1 8.5 - 72.5 pg/mL [facility] Specimen Blood Narrative Performed At [facility] Performing Organization Address [facility] Phone Number [address] [address] [phone] [place] Potassium-Stat Lab (07/14/2018 3:01 PM CDT) Potassium 4.0 3.6 - 5.5 meq/L [facility] Specimen Blood, Arterial Performing Organization Address [facility] Phone Number [address] [address] CENTER Sodium Na-Stat Lab (07/14/2018 3:01 PM CDT) Sodium 137 135 - 148 meq/L [facility] Specimen Blood, Arterial Performing Organization Address [facility] Phone Number [address] [address] C[place] Glucose-Stat Lab (07/14/2018 3:01 PM CDT) Glucose 87 70 - 110 mg/dL [facility] Specimen Blood, Arterial Performing Organization Address City/[facility]/Zipcode Phone Number [address] [phone] CENTER HGB/HCT (H&H)-Stat Lab (07/14/2018 3:01 PM CDT) Hemoglobin 11.0 (L) 13.0 - 16.8 g/dL [facility] Hematocrit 32.0 (L) 40.0 - 50.0 % [facility] Specimen Blood, Arterial Performing Organization Address [facility] Phone Number [address] [phone] CENTER ABORH, manual (07/14/2018 10:34 AM CDT) ABO Grouping A [facility] Rh Factor POS [facility] Specimen Blood Performing Organization Address [facility] Phone Number [address] [address] Tissue Exam (07/14/2018 10:23 AM CDT)Only the most recent of2 resultswithin the time period is included. Case Report Surgical Pathology Report Case: [id number] [facility] Authorizing Provider:Guilherme Fraire MD Collected: 07/14/2018 [facility]3 [facility] MEDICAL Ordering Location: [facility] PERIOPERATIVE Received: 07/14/2018 [facility]9 CENTER SERVICES Pathologist: Jackie Hardy MD Specimens: A) - Soft Tissue, Other, rule out left superior parathyroid B) - Soft Tissue, Other, NECK DISSECTION LEVEL 1A C) - Soft Tissue, Other, TOTAL LARYNGECTOMY; PLEASE CHECK TRACHEAL AND PHARYNGEAL MARGINS D) - Soft Tissue, Other, LEFT NECK DISSECTION LEVEL 2 DIAGNOSIS A. PARATHYROID GLAND, LEFT SUPERIOR, BIOPSY: [facility] - PARATHYROID TISSUE IDENTIFIED HEALTH [...] NODES (0/2) Signing Pathologist Direct Phone Line: [phone] COMMENT There is a detached piece of [facility] necrotic atypical squamous [facility] (section C18) involving CENTER left vocal cord. The focus measures 0.2 cm in greatest dimension. Underlying tissue shows ulceration and granulation tissue. 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 [facility] GROSS DESCRIPTION A. The specimen is received fresh for intraoperative consultation labeled with patient's name "CHELI", medical record number, and "rule out left superior parathyroid." It consists of a piece of paige-pink [facility]'S tissue measuring 0.4 x 0.3 x 0.2 [...] longitudinally and reveals no gross mass lesion. [employer] sections are submitted as follows: C6 - [...] TISSUE, "RULE OUT LEFT SUPERIOR PARATHYROID," EXCISION: [facility] CONSULTATION - PARATHYROID TISSUE IDENTIFIED [facility] [...] C. There is a detached piece of [facility] necrotic atypical squamous [facility] cells (section C18) in left CENTER vocal cord. Underlying tissue shows ulcer and granulation tissue. On C19, Circle-8 positivity confirms portion of thyroid tissue present. [...] the use of immunohistochemistry or special stains. [facility] Immunohistochemistry technical testing was performed at [facility], Pathology Laboratory where it was developed and [...] Soft tissue (navigational concept) Performing Organization Address City/[facility] Phone Number [address] [address] [phone] CENTER Type and screen, automated (07/14/2018 10:18 AM CDT) ABO/RH AUTOMATED (BEAKER) A POSITIVE [facility] Ab Scrn NEGATIVE [facility] Specimen Blood Performing Organization Address [facility] Phone Number [address] [phone] IR G-Tube Insertion w/Fluoro (07/11/2018 9:45 AM CDT) Specimen Narrative Performed At FINAL REPORT GE [facility] Fluoroscopic guided gastrostomy tube placement, 07/11/2018. Clinical History: Laryngeal cancer. Modality: Fluoroscopy. Cell Tuber Machine:Jack Beckford MD. [employer] Officer:Dilip Vivas MD. Conscious sedation: 2.0 mg Versed, [...] After the tract was dilated, a 14 [place] catheter was placed into the stomach. The [...] MD Report Verified Date/Time:07/11/2018 14:18:50 Reading Location: [address] Body Reading Room Procedure Note Interface, External Ris In - 07/11/2018 2:20 PM CDT FINAL REPORT Fluoroscopic guided gastrostomy tube placement, 07/11/2018. Clinical History: Laryngeal cancer. Modality: Fluoroscopy. Cell Tuber Machine: Jack Beckford MD. [employer] Officer: Dilip Vivas MD. Conscious sedation: 2.0 mg [...] After the tract was dilated, a 14 [place] catheter was placed into the stomach. The [...] Report Verified Date/Time: 07/11/2018 14:18:50 Reading Location: [place] [id number] Angio Body Reading Room Performing Organization Address [...] MD Report Verified Date/Time:07/10/2018 11:03:24 Reading Location: [address] Radiology Reading Room Procedure Note Interface, External Ris In - 07/10/2018 11:05 AM CDT FINAL REPORT AP chest HISTORY: Cough. COMPARISON: 06/17/2018. IMPRESSION: Tracheostomy tube present. Heart size normal. Lungs clear without effusion or pneumothorax. Intact skeleton. Signed: Ashok Whitaker MD Report Verified Date/Time: 07/10/2018 11:03:24 Reading Location: [address] Radiology Reading Room Performing Organization Address City/State/Zipcode Phone Number [facility] Comprehensive metabolic panel (07/10/2018 10:13 AM CDT)Only the most recent of2 resultswithin the time period is included. Protein, Total 7.2 6.0 - 8.3 gm/dL [facility] Albumin 3.9 3.5 - 5.0 g/dL [facility] Alkaline Phosphatase 98 40 - 150 U/L [facility] Total Bilirubin 0.4 0.2 - 1.2 mg/dL [facility] Sodium 141 136 - 145 meq/L [facility] Potassium 4.4 3.5 - 5.1 meq/L [facility] Chloride 109 (H) 98 - 107 meq/L [facility] CO2 24 22 - 29 meq/L [facility] BUN 14 7 - 21 mg/dL [facility] Creatinine 0.78 0.57 - 1.25 mg/dL [facility] Glucose 107 (H) 70 - 105 mg/dL [facility] Calcium 9.4 8.4 - 10.2 mg/dL [facility] AST 17 5 - 34 U/L [facility] ALT 17 6 - 55 U/L [facility] EGFR 106Comment: ESTIMATED mL/min/1.73 sq m [facility] GFR IS NOT ACCURATE [facility] CREATININE CLEARANCE IN PREDICTING GLOMERULAR FILTRATION RATE. ESTIMATED GFR IS NOT APPLICABLE FOR DIALYSIS PATIENTS. Specimen Blood Performing Organization Address City/[facility] Phone Number [address] [address] [phone] CENTER Blood Culture - Routine (Right Venipuncture) (06/18/2018 2:31 PM CDT)Only the most recent of6 resultswithin the time period is included. Result No growth in 5 days [facility] Specimen Blood Performing Organization Address [facility] Phone Number [address] [address] [phone] CENTER Vancomycin level, random (06/18/2018 10:48 AM CDT)Only the most recent of2 resultswithin the time period is included. Vancomycin Rm 1.3 ug/mL [facility] Specimen Blood Narrative Performed At Reference Range: No Normals [facility] Performing Organization Address [facility] Phone Number [address] [address] CENTER Procalcitonin (06/17/2018 1:20 PM CDT) Procalcitonin 0.08 (H) <0.05 ng/mL [facility] Specimen Blood Narrative Performed At SEPSIS RISK (ng/mL) [facility] Low:0.05-0.50 Intermediate: 0.51-2.00 High: >=2.01 Performing Organization Address [facility] Phone Number [address] [address] CENTER Lactic acid, venous (06/17/2018 1:20 PM CDT) Lactate, Venous 2.4 (H)Comment: Specimen 0.5 - 2.2 mmol/L [facility] slightly hemolyzed [facility] Specimen Blood Performing Organization Address City/State/Zipcode Phone Number [facility] [address] [place] [address] CENTER PERIPHERAL VASCULAR REPORT - SCAN (06/16/2018 9:10 PM CDT) Narrative Performed At CT chest for pulmonary embolus (06/16/2018 9:30 AM CDT) Specimen Narrative Performed At FINAL REPORT [facility] CT Chest with contrast (PE protocol) History: [...] MD Report Verified Date/Time:06/16/2018 09:53:01 Reading Location: [facility] Diagnostic Imaging Reading Room - [place] [address] Procedure Note Interface, External Ris In - [...] Report Verified Date/Time: 06/16/2018 09:53:01 Reading Location: [facility] Diagnostic Imaging Reading Room - [place] [address] Performing Organization Address City/State/Zipcode Phone Number [employer] ECHOCARDIOGRAM REPORT - SCAN (06/15/2018 9:10 PM CDT) Narrative Performed At Venous doppler legs bilateral (06/15/2018 1:55 PM CDT) Ejection Fraction [facility] ECHO [facility] Specimen Impressions Performed At Right Impression [facility] 1. There is no deep venous obstruction [...] At LAB - Lower Extremities DVT Study [facility] Demographics Patient JIMMIE DillDate of Study 06/15/2018 PAM 47 Visit [id number] Male of 1970 Referring Veronica Hernandez Room Number 7409 Physician Vel Ticket Marker Ron France [facility] Physician Procedure Type of Study: Veins: [...] Study 06/15/2018 PAM Age 47 Visit Number [id number] Gender Male Accession Number [id number] Date of 1970 Referring Veronica Hernandez Room Number 7409 Physician Vel Ticket Marker Ron Gutierrez Interpreting Keerthi France S Physician [...] cm Performing Organization Address City/State/Zipcode Phone Number [facility] 2D Echo W/Doppler(CW/PW/Color) (06/15/2018 12:11 PM CDT) Ejection Fraction [facility] Specimen Narrative Performed At Transthoracic Echocardiography Report (TTE) [facility] Demographics Patient Name Haven PUGH of Study 06/15/2018 PAM [id number] GenderMale Visit Number [id number] Unknown [id number] Room Number 7409 Number Date of Birth1970Referring Physician Veronica Crowder Age47 year(s)Ticket Marker Javy LemuspretingRatye Stroud, Physician Procedure Type of [...] Study 06/15/2018 PAM Gender Male Visit Number [id number] Race Unknown Room Number 7409 Number Date of 1970 Referring Physician Veronica Crowder Age 47 year(s) Ticket Marker Javy [place] [employer] Silvino Brown Interpreting Physician STORM Alvarez Procedure [...] CI: 2.71 l/min/m^2 Performing Organization Address [facility] Phone Number [facility] D-dimer (06/15/2018 9:00 AM CDT) D-Dimer, Quant 1.59 (H) <0.50 MG/L FEU [facility] Specimen Blood Narrative Performed At Intended Use: The D-Dimer Assay can be used [facility] to aid in the diagnosis of Deep Vein Thrombosis (DVT) and Pulmonary Embolism Disease (PED). In patients with low pre-test probability, various studies concerning STA Liatest D-dimer test have reported that with a cutoff value of 0.50 MG/L FEU, the Negative Predictive Value (NPV) regarding the exclusion of thrombosis is within 95-100% range. Performing Organization Address [facility] Phone Number [address] [address] [place] B-type Natriuretic Factor (BNP) (06/15/2018 9:00 AM CDT) BNP 66 0 - 100 pg/mL [facility] Specimen Blood Performing Organization Address [facility] Phone Number [address] [address] [place] Respiratory Panel [facility] (06/15/2018 8:57 AM CDT) Human Metapneumovirus Not detected Not detected, [facility] Rhinovirus Not detected Not detected, [facility] Influenza A Not detected Not detected, [facility] INFLUENZA A (NO SUBTYPE) Not detected, [facility] Influenza A subtype H1 Not detected, [facility] Influenza A Subtype H3 Not detected, [facility] Influenza A Subtype Not detected, [facility] H1-2009 Equivocal [facility] Influenza B Not detected Not detected, [facility] Respiratory Syncytial Not detected Not detected, [facility] Virus Equivocal [facility] Parainfluenza Virus 1 Not detected Not detected, [facility] Parainfluenza Virus 2 Not detected Not detected, [facility] Parainfluenza virus 3 Not detected Not detected, [facility] Parainfluenza Virus 4 Not detected Not detected, [facility] Adenovirus Not detected Not detected, [facility] Coronavirus 229E Detected Not detected, [facility] (A)Comment: Droplet [facility] isolation. Consider stopping antibiotics. Coronavirus HKU1 Not detected Not detected, [facility] Coronavirus NL63 Not detected Not detected, [facility] Coronavirus OC43 Not detected Not detected, [facility] Bordetella Pertussis Not detected Not detected, [facility] Chlamydophila Pneumoniae Not detected Not detected, [facility] Mycoplasma Pneumoniae Not detected Not detected, [facility] Specimen Nasopharyngeal Narrative Performed At Other viruses and bacteria not targeted by [facility] this PCR panel cannot be excluded; therefore clinical correlation and follow up of serology, culture results, and other molecular studies is required. The results are not intended to be used as the sole means for clinical diagnosis or patient management decisions. This sample was tested at the [facility] Molecular Diagnostics Laboratory using the [employer] Respiratory Panel. It is FDA cleared and has been verified and approved by the [facility]ostics [facility] for clinical use on nasal swab specimens. It is not FDA-cleared for use on bronchial wash/lavage samples. However, for this sample type, validation was performed and test characteristics were determined and approved, by [facility] Molecular Diagnostics laboratory for clinical use under the Clinical Laboratory Improvement Amendments (CLIA) of 1988 requirements. Therefore, FDA clearance is not required.This laboratory is CLIA-certified and [employer] [place] [employer] (CAP)-accredited to perform high complexity testing. Performing Organization Address City/[facility] Phone Number [address] [address] [place] Fibrinogen (06/15/2018 8:40 AM CDT) Fibrinogen 621 (H) 225 - 434 mg/dl [facility] Specimen Blood Performing Organization Address [facility] Phone Number [address] [address] [phone] [place] Lactic Acid, Arterial (06/15/2018 8:21 AM CDT) Lactate, Art 0.8Comment: Specimen 0.5 - 2.2 mmol/L [facility] slightly hemolyzed [facility] Specimen Blood, Arterial Performing Organization Address [facility] Phone Number [address] [address] [place] POC-Lactic Acid, Venous (06/15/2018 4:26 AM CDT) POC-Lactic Acid, Venous 1.1Comment: TESTED AT 0.9 - 1.7 mmol/L [address] [address] Specimen Blood Performing Organization Address [facility] Phone Number [address] [address] CENTER aPTT (06/13/2018 3:34 AM CDT)Only the most recent of5 resultswithin the time period is included. PTT 27.4 22.5 - 36.0 seconds [facility] Specimen Blood Performing Organization Address [facility] Phone Number [address] [address] [place] Prothrombin time/INR (06/13/2018 3:34 AM CDT)Only the most recent of5 resultswithin the time period is included. Protime 13.8 11.7 - 14.7 seconds [facility] INR 1.1 <=5.9 [facility] Specimen Blood Narrative Performed At RECOMMENDED COUMADIN/WARFARIN INR THERAPY [facility] RANGES STANDARD DOSE: 2.0 - 3.0 Includes: PROPHYLAXIS for venous thrombosis, systemic embolization; TREATMENT for venous thrombosis and/or pulmonary embolus. HIGH RISK: Target INR is 2.5-3.5 for patients with mechanical heart valves. Performing Organization Address City/State/Zipcode Phone Number [facility] [address] [place] [address] [place] [address] chest with IV contrast (06/12/2018 9:32 AM CDT) Specimen Narrative Performed At FINAL REPORT [employer] INDICATION: Cancer surveillance. Report of laryngeal mass. [...] MD Report Verified Date/Time:06/12/2018 10:26:26 Reading Location: [facility] Diagnostic Imaging Reading Room - [place] [id number] Procedure Note Interface, External Ris In [...] Report Verified Date/Time: 06/12/2018 10:26:26 Reading Location: [facility] Diagnostic Imaging Reading Room - [place] [address] Performing Organization Address City/State/Zipcode Phone Number [employer] CT neck soft tissue with IV contrast (06/12/2018 9:32 AM CDT) Specimen Narrative Performed At FINAL REPORT [employer] CT, SOFT TISSUE NECK, CONTRAST INDICATION:Cancer Surveillance [...] MD Report Verified Date/Time:06/12/2018 09:53:06 Reading Location: [facility] C013V Neuro Reading Room Procedure Note [...] Report Verified Date/Time: 06/12/2018 09:53:06 Reading Location: [facility] C013V Neuro Reading Room Performing Organization Address City/State/Zipcode Phone Number [facility] Blood gas, venous (06/10/2018 3:45 AM CDT) pH, Jorge 7.48 (H) 7.32 - 7.42 [facility] pCO2, Jorge 37 (L) 41 - 51 mmHg [facility] pO2, Jorge 94 (H) 25 - 40 mmHg [facility] O2 Sat, Jorge 97.7 (H) 40.0 - 70.0 % [facility] HCO3, Jorge 27 21 - 29 mmol/L [facility] Base Excess, Jorge 3.7 (H) -2.0 - 3.0 mmol/L [facility] Patient Temperature 37.0 C [facility] Specimen Blood Performing Organization Address [facility] Phone Number [address] [address] [phone] CENTER Platelet count (06/09/2018 12:28 PM CDT) Platelets 203 150 - 450 K/CU MM [facility] Specimen Blood Performing Organization Address City/[facility] Phone Number [address] [address] CENTER Hemoglobin (06/09/2018 12:28 PM CDT) Hemoglobin 15.7 13.7 - 17.5 GM/DL [facility] Specimen Blood Performing Organization Address [facility] Phone Number [address] [address] CENTER after 09/10/2017 Advance Directives Patient has advance care planning documents, and code status on file. For more information, please contact:[address] [phone] Code Status Date Activated Date Inactivated Comments [...]
--- OUTSIDE RECORDS SUMMARY | 2018-09-11 13:42 | XMS REPORT ---
[...] End Status Dosage System Date Date Hydrocodone-Acet [facility] [id number] 10-325 MG Active 1 tablet aminophen Orally every 6 as needed hrs Citalopram [facility] 43273696282 20 MG Orally Active 1 tablet Hydrobromide Once a day Xanax [facility] [address]-93 1 MG Orally Active 1 tablet Once a day Zofran [facility] [address]-43 8 MG Orally Active 1 tablet Twice a day PRN Results No Known Results Summary Purpose [employer]ClinicalWorks Submission
--- OUTSIDE RECORDS SUMMARY | 2018-09-11 13:43 | XMS REPORT ---
[...] Dosage System Date Date BuPROPion HCl [facility] 51530744067 150 MG Orally Dec 16, Active 1 tablet ER (Smoking Once a day 2018 in the Det) morning Xanax [facility] 17621297323 1 MG Orally Active 1 tablet Once a day Zofran ND 47700511343 8 MG Orally Active 1 tablet Twice a day PRN Hydrocodone-Ari ND 54912385719 10-325 MG Active 1 tablet taminophen Orally every 6 as needed hrs Citalopram ND 41551257944 20 MG Orally Inactive 1 tablet Hydrobromide Once a day Results No Known Results Summary Purpose eClinicalWorks Submission
--- OUTSIDE RECORDS SUMMARY | 2018-09-11 13:43 | XMS REPORT ---
[...] Date Date BuPROPion HCl [facility] 54895407463 150 MG Orally Dec 16, Active 1 tablet ER (Smoking Once a day 2018 in the Det) morning Xanax [facility] 17459721529 1 MG Orally Once Active 1 tablet a day Zofran ND 46927631831 8 MG Orally Active 1 tablet Twice a day PRN Hydrocodone-Ac ND 51045506786 10-325 MG Orally Active 1 tablet etaminophen every 6 hrs as needed Results No Known Results Summary Purpose [employer]Works Submission
--- OUTSIDE RECORDS SUMMARY | 2018-09-11 13:47 | XMS REPORT ---
:1970 [facility] Address [address] [place] [address] [address] [place] [address] Care Team Providers Name Role Phone JENNIFER [...] Comments CREATININE (BEAKER) (test 0.63 mg/dL 0.57-1.25 cvkj=670) EGFR (BEAKER) (test 136 mL/min/1.73 sq m ESTIMATED GFR IS NOT dxrz=1164) ACCURATE CREATININE CLEARANCE IN PREDICTING GLOMERULAR FILTRATION RATE. ESTIMATED GFR IS NOT APPLICABLE FOR DIALYSIS PATIENTS. WOUND CULTURE + GRAM [id number] 16:32:00 Test Item Value Reference Range Comments CULTURE (BEAKER) (test No growth jtbk=7285) GRAM STAIN RESULT (BEAKER) 2+ WBCs (test hlxw=7733) GRAM STAIN RESULT (BEAKER) 1+ gram positive cocci in (test lczg=42711) pairs GRAM STAIN RESULT (BEAKER) <1+ gram variable rods (test cdqh=75431) VANCOMYCIN LEVEL, [id number] 23:37:00 Test Item Value Reference Range Comments VANCOMYCIN TROUGH (BEAKER) (test qvug=030) 7.5 ug/mL 10.0-20.0 FL, ESOPH, SWALLOW FUNCTION, WITH CINE OR [id number] 18:19:00Cervical esophagram with GASTROGAFFINReason for exam:->status post [...] MDReport Verified Date/Time: 08/12/2018 18:19:29 Reading Location: [place] [id number] [facility] Consult Reading Room CBC W/PLT COUNT & AUTO [id number] 04: 39:00 Test Item Value Reference Range Comments WHITE BLOOD CELL COUNT (BEAKER) (test mffw=822) 7.1 K/ L 3.5-10.5 RED BLOOD CELL COUNT (BEAKER) (test zmfx=772) 3.77 M/ L 4.63-6.08 HEMOGLOBIN (BEAKER) (test igbw=260) 10.9 GM/DL 13.7-17.5 HEMATOCRIT (BEAKER) (test fnad=042) 35.7 % 40.1-51.0 MEAN CORPUSCULAR VOLUME (BEAKER) (test hajo=021) 94.7 fL 79.0-92.2 MEAN CORPUSCULAR HEMOGLOBIN (BEAKER) (test 28.9 pg 25.7-32.2 vvfc=378) MEAN CORPUSCULAR HEMOGLOBIN CONC (BEAKER) (test 30.5 GM/DL 32.3-36.5 shbi=155) RED CELL DISTRIBUTION WIDTH (BEAKER) (test 14.6 % 11.6-14.4 sdbk=025) PLATELET COUNT (BEAKER) (test awrb=426) 318 K/CU MM 150-450 MEAN PLATELET VOLUME (BEAKER) (test bwkt=058) 9.8 fL 9.4-12.4 NUCLEATED RED BLOOD CELLS (BEAKER) (test 0 /100 WBC 0-0 rkyd=239) NEUTROPHILS RELATIVE PERCENT (BEAKER) (test 72 % qkcx=363) LYMPHOCYTES RELATIVE PERCENT (BEAKER) (test 10 % flzo=698) MONOCYTES RELATIVE PERCENT (BEAKER) (test 12 % lbbn=798) EOSINOPHILS RELATIVE PERCENT (BEAKER) (test 4 % vojr=910) BASOPHILS RELATIVE PERCENT (BEAKER) (test 1 % uixy=076) NEUTROPHILS ABSOLUTE COUNT (BEAKER) (test 5.08 K/ L 1.78-5.38 arvu=722) LYMPHOCYTES ABSOLUTE COUNT (BEAKER) (test 0.68 K/ L 1.32-3.57 jpcb=350) MONOCYTES ABSOLUTE COUNT (BEAKER) (test 0.86 K/ L 0.30-0.82 uyta=943) EOSINOPHILS ABSOLUTE COUNT (BEAKER) (test 0.29 K/ L 0.04-0.54 oebc=499) BASOPHILS ABSOLUTE COUNT (BEAKER) (test 0.04 K/ L 0.01-0.08 ajmc=949) IMMATURE GRANULOCYTES-RELATIVE PERCENT (BEAKER) 1 % 0-1 (test uwvx=8285) TSH/FREE T4 IF [id number] 18:11:00 Test Item Value Reference Range Comments THYROID STIMULATING HORMONE (BEAKER) (test 0.75 uIU/mL 0.35-4.94 ybwu=244) CBC W/PLT COUNT & AUTO [id number] 17:31:00 Test Item Value Reference Range Comments WHITE BLOOD CELL COUNT (BEAKER) (test jhpt=787) 9.2 K/ L 3.5-10.5 RED BLOOD CELL COUNT (BEAKER) (test zxne=816) 3.78 M/ L 4.63-6.08 HEMOGLOBIN (BEAKER) (test jnmy=352) 11.0 GM/DL 13.7-17.5 HEMATOCRIT (BEAKER) (test yoji=200) 35.4 % 40.1-51.0 MEAN CORPUSCULAR VOLUME (BEAKER) (test kmcb=248) 93.7 fL 79.0-92.2 MEAN CORPUSCULAR HEMOGLOBIN (BEAKER) (test 29.1 pg 25.7-32.2 csfr=077) MEAN CORPUSCULAR HEMOGLOBIN CONC (BEAKER) (test 31.1 GM/DL 32.3-36.5 qfuv=061) RED CELL DISTRIBUTION WIDTH (BEAKER) (test 14.7 % 11.6-14.4 fnwv=456) PLATELET COUNT (BEAKER) (test liwo=747) 323 K/CU MM 150-450 MEAN PLATELET VOLUME (BEAKER) (test unip=620) 9.6 fL 9.4-12.4 NUCLEATED RED BLOOD CELLS (BEAKER) (test 0 /100 WBC 0-0 prll=495) NEUTROPHILS RELATIVE PERCENT (BEAKER) (test 75 % woal=419) LYMPHOCYTES RELATIVE PERCENT (BEAKER) (test 9 % llsu=560) MONOCYTES RELATIVE PERCENT (BEAKER) (test 12 % bilx=537) EOSINOPHILS RELATIVE PERCENT (BEAKER) (test 3 % ndvm=023) BASOPHILS RELATIVE PERCENT (BEAKER) (test 0 % spli=775) NEUTROPHILS ABSOLUTE COUNT (BEAKER) (test 6.86 K/ L 1.78-5.38 gqbd=997) LYMPHOCYTES ABSOLUTE COUNT (BEAKER) (test 0.81 K/ L 1.32-3.57 sgpk=580) MONOCYTES ABSOLUTE COUNT (BEAKER) (test 1.13 K/ L 0.30-0.82 psqd=495) EOSINOPHILS ABSOLUTE COUNT (BEAKER) (test 0.24 K/ L 0.04-0.54 eyqn=378) BASOPHILS ABSOLUTE COUNT (BEAKER) (test 0.04 K/ L 0.01-0.08 ylnt=966) IMMATURE GRANULOCYTES-RELATIVE PERCENT (BEAKER) 1 % 0-1 (test olhs=3604) TISSUE [id number] 10:26:00Surgical Pathology Report Case: [id number] Authorizing Provider: Jennifer Fraire MD Collected: 07/14/2018 1023 Ordering Location: [facility] Received: 07/14/2018 1029 SERVICES Pathologist: Jackie [...] cannot be determined from the submitted specimen(s) 96825 X3 , 13594, 73437, 11297 X2, 30633 X 4, 73517 x1, 48319 [id number] 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 Makeup Artist sections are submitted as follows: C6 - [...] shows ulcer and granulation tissue. On C19, [place]-8 positivity confirms portion of thyroidtissue present. On [...] stains. Immunohistochemistry technical testing was performed at [facility], Pathology Laboratory where it was developed and [...] clinical laboratory testing.CBC W/PLT COUNT & AUTO [id number] 09:34:00 Test Item Value Reference Range Comments WHITE BLOOD CELL COUNT (BEAKER) (test oldi=433) 10.8 K/ L 3.5-10.5 RED BLOOD CELL COUNT (BEAKER) (test mabz=264) 3.45 M/ L 4.63-6.08 HEMOGLOBIN (BEAKER) (test kubm=549) 10.2 GM/DL 13.7-17.5 HEMATOCRIT (BEAKER) (test uaxn=112) 34.1 % 40.1-51.0 MEAN CORPUSCULAR VOLUME (BEAKER) (test uqzk=027) 98.8 fL 79.0-92.2 MEAN CORPUSCULAR HEMOGLOBIN (BEAKER) (test 29.6 pg 25.7-32.2 potl=204) MEAN CORPUSCULAR HEMOGLOBIN CONC (BEAKER) (test 29.9 GM/DL 32.3-36.5 nhoc=766) RED CELL DISTRIBUTION WIDTH (BEAKER) (test 15.7 % 11.6-14.4 szka=590) PLATELET COUNT (BEAKER) (test wylh=139) 522 K/CU MM 150-450 MEAN PLATELET VOLUME (BEAKER) (test khqs=238) 10.2 fL 9.4-12.4 NUCLEATED RED BLOOD CELLS (BEAKER) (test 0 /100 WBC 0-0 pwpg=140) (CELLAVISION MANUAL DIFF)2018-07-24 09:34:00 Test Item Value Reference Range Comments NEUTROPHILS - REL (CELLAVISION)(BEAKER) (test 80 % qdyt=8016) LYMPHOCYTES - REL (CELLAVISION)(BEAKER) (test 2 % ciwd=8299) MONOCYTES - REL (CELLAVISION)(BEAKER) (test 15 % tjwq=7692) EOSINOPHILS - REL (CELLAVISION)(BEAKER) (test 3 % jlyg=8111) NEUTROPHILS - ABS (CELLAVISION)(BEAKER) (test 8.64 K/ul 1.78-5.38 jzpn=6786) LYMPHOCYTES - ABS (CELLAVISION)(BEAKER) (test 0.22 K/ul 1.32-3.57 cjkd=4285) MONOCYTES - ABS (CELLAVISION)(BEAKER) (test 1.62 K/uL 0.30-0.82 jdsh=4722) EOSINOPHILS - ABS (CELLAVISION)(BEAKER) (test 0.32 K/uL 0.04-0.54 rbjb=6650) TOTAL COUNTED (BEAKER) (test gahm=1785) 100 WBC MORPHOLOGY (BEAKER) (test hwvj=116) Normal LARGE PLT(BEAKER) (test gdwf=8260) Present POLYCHROMATOPHILLIC RBCS(BEAKER) (test yufx=310) 1+ few ARTIFACT (CELLAVISION)(BEAKER) (test ilxu=2685) Present PLATELET CONCENTRATION (CELLAVISION)(BEAKER) (test Increased oicu=8046) Received comment: User comments: Slide comments:[id number] 05:40:00 Test Item Value Reference Range Comments PHOSPHORUS (BEAKER) (test epsi=245) 4.8 mg/dL 2.3-4.7 [id number] 05:40:00 Test Item Value Reference Range Comments MAGNESIUM (BEAKER) (test vdzc=203) 2.1 mg/dL 1.6-2.6 BASIC METABOLIC [id number] 05:40:00 Test Item Value Reference Range Comments SODIUM (BEAKER) (test 140 meq/L 136-145 fqne=817) POTASSIUM (BEAKER) (test 4.0 meq/L 3.5-5.1 ktoz=976) CHLORIDE (BEAKER) (test 99 meq/L 98-107 npvu=502) CO2 (BEAKER) (test 30 meq/L 22-29 abxk=722) BLOOD UREA NITROGEN 8 mg/dL 7-21 (BEAKER) (test duua=807) CREATININE (BEAKER) (test 0.71 mg/dL 0.57-1.25 eoah=132) GLUCOSE RANDOM (BEAKER) 90 mg/dL 70-105 (test rgaf=740) CALCIUM (BEAKER) (test 8.8 mg/dL 8.4-10.2 zxky=955) EGFR (BEAKER) (test 118 mL/min/1.73 sq m ESTIMATED GFR IS NOT yujc=2430) ACCURATE CREATININE CLEARANCE IN PREDICTING GLOMERULAR FILTRATION RATE. ESTIMATED GFR IS NOT APPLICABLE FOR DIALYSIS PATIENTS. CBC W/PLT COUNT & AUTO [id number] 11:50:00 Test Item Value Reference Range Comments WHITE BLOOD CELL COUNT (BEAKER) (test pufn=003) 13.2 K/ L 3.5-10.5 RED BLOOD CELL COUNT (BEAKER) (test trxe=723) 3.41 M/ L 4.63-6.08 HEMOGLOBIN (BEAKER) (test mumj=311) 10.2 GM/DL 13.7-17.5 HEMATOCRIT (BEAKER) (test zyon=749) 33.2 % 40.1-51.0 MEAN CORPUSCULAR VOLUME (BEAKER) (test uaxd=780) 97.4 fL 79.0-92.2 MEAN CORPUSCULAR HEMOGLOBIN (BEAKER) (test 29.9 pg 25.7-32.2 antv=822) MEAN CORPUSCULAR HEMOGLOBIN CONC (BEAKER) (test 30.7 GM/DL 32.3-36.5 ydah=340) RED CELL DISTRIBUTION WIDTH (BEAKER) (test 15.5 % 11.6-14.4 frvy=237) PLATELET COUNT (BEAKER) (test mpbg=988) 473 K/CU MM 150-450 MEAN PLATELET VOLUME (BEAKER) (test ljhc=503) 10.0 fL 9.4-12.4 NUCLEATED RED BLOOD CELLS (BEAKER) (test 0 /100 WBC 0-0 iudt=500) (CELLAVISION MANUAL DIFF)2018-07-23 11:50:00 Test Item Value Reference Range Comments NEUTROPHILS - REL (CELLAVISION)(BEAKER) (test 80 % lykr=3839) LYMPHOCYTES - REL (CELLAVISION)(BEAKER) (test 8 % lcel=7171) MONOCYTES - REL (CELLAVISION)(BEAKER) (test 4 % qmud=5979) EOSINOPHILS - REL (CELLAVISION)(BEAKER) (test 1 % sktk=6909) MYELOCYTES - REL (CELLAVISION)(BEAKER) (test 2 % 0-0 hiwr=2074) BANDS - REL (CELLAVISION)(BEAKER) (test 4 % 0-10 bsqb=1461) NEUTROPHILS - ABS (CELLAVISION)(BEAKER) (test 10.56 K/ul 1.78-5.38 mesj=3820) LYMPHOCYTES - ABS (CELLAVISION)(BEAKER) (test 1.06 K/ul 1.32-3.57 iooq=0929) MONOCYTES - ABS (CELLAVISION)(BEAKER) (test 0.53 K/uL 0.30-0.82 ctmb=6114) EOSINOPHILS - ABS (CELLAVISION)(BEAKER) (test 0.13 K/uL 0.04-0.54 vvmu=5586) MYELOCYTES-ABS (CELLAVISION)(BEAKER) (test 0.26 K/uL 0.00-0.00 oxpd=8845) BANDS - ABS (CELLAVISION)(BEAKER) (test 0.53 K/uL 0.00-0.80 xdro=1846) TOTAL COUNTED (BEAKER) (test jcra=9403) 100 WBC MORPHOLOGY (BEAKER) (test lrlk=682) Normal PLT MORPHOLOGY (BEAKER) (test bniw=777) Normal ANISOCYTOSIS (BEAKER) (test kfch=108) 2+ moderate MICROCYTES (BEAKER) (test tnvn=797) 1+ few ARTIFACT (CELLAVISION)(BEAKER) (test cnhe=8099) Present PLATELET CONCENTRATION (CELLAVISION)(BEAKER) Increased (test sfys=1094) Received comment: User comments: Slide comments:SPUTUM CULTURE + GRAM [id number] 10:46:00 Test Item Value Reference Range Comments CULTURE (BEAKER) (test <1+ Normal respiratory maximo enhp=1696) present GRAM STAIN RESULT (BEAKER) <1+ White blood cells seen (test whgl=0658) GRAM STAIN RESULT (BEAKER) 0-5 epithelial cells (test cobd=83219) GRAM STAIN RESULT (BEAKER) No organisms seen (test jkqi=12376) [id number] 06:07:00 Test Item Value Reference Range Comments PHOSPHORUS (BEAKER) (test efck=378) 4.6 mg/dL 2.3-4.7 [id number] 06:07:00 Test Item Value Reference Range Comments MAGNESIUM (BEAKER) (test akvo=493) 2.0 mg/dL 1.6-2.6 BASIC METABOLIC [id number] 06:07:00 Test Item Value Reference Range Comments SODIUM (BEAKER) (test 140 meq/L 136-145 mwmg=770) POTASSIUM (BEAKER) (test 4.3 meq/L 3.5-5.1 lfsd=366) CHLORIDE (BEAKER) (test 101 meq/L 98-107 mkkm=696) CO2 (BEAKER) (test 31 meq/L 22-29 xssl=423) BLOOD UREA NITROGEN 10 mg/dL 7-21 (BEAKER) (test audt=094) CREATININE (BEAKER) (test 0.67 mg/dL 0.57-1.25 boye=465) GLUCOSE RANDOM (BEAKER) 111 mg/dL 70-105 (test wdlu=516) CALCIUM (BEAKER) (test 8.7 mg/dL 8.4-10.2 adsi=741) EGFR (BEAKER) (test 127 mL/min/1.73 sq m ESTIMATED GFR IS NOT wdwn=2280) ACCURATE CREATININE CLEARANCE IN PREDICTING GLOMERULAR FILTRATION RATE. ESTIMATED GFR IS NOT APPLICABLE FOR DIALYSIS PATIENTS. VANCOMYCIN LEVEL, [id number] 23:12:00 Test Item Value Reference Range Comments VANCOMYCIN TROUGH (BEAKER) (test yqii=761) 3.2 ug/mL 10.0-20.0 POCT-GLUCOSE [id number] 17:57:00 Test Item Value Reference Range Comments POC-GLUCOSE METER (BEAKER) 105 mg/dL 70-110 TESTED AT [address] (test hmet=1673) [facility] [address] CBC W/PLT COUNT & AUTO [id number] 13:00:00 Test Item Value Reference Range Comments WHITE BLOOD CELL COUNT (BEAKER) (test vhtn=737) 12.5 K/ L 3.5-10.5 RED BLOOD CELL COUNT (BEAKER) (test kocq=289) 3.46 M/ L 4.63-6.08 HEMOGLOBIN (BEAKER) (test myks=689) 10.4 GM/DL 13.7-17.5 HEMATOCRIT (BEAKER) (test rmsa=171) 33.5 % 40.1-51.0 MEAN CORPUSCULAR VOLUME (BEAKER) (test zgkh=810) 96.8 fL 79.0-92.2 MEAN CORPUSCULAR HEMOGLOBIN (BEAKER) (test 30.1 pg 25.7-32.2 droj=125) MEAN CORPUSCULAR HEMOGLOBIN CONC (BEAKER) (test 31.0 GM/DL 32.3-36.5 erty=509) RED CELL DISTRIBUTION WIDTH (BEAKER) (test 15.4 % 11.6-14.4 tfha=507) PLATELET COUNT (BEAKER) (test ayah=813) 425 K/CU MM 150-450 MEAN PLATELET VOLUME (BEAKER) (test ayji=724) 10.1 fL 9.4-12.4 NUCLEATED RED BLOOD CELLS (BEAKER) (test 0 /100 WBC 0-0 hxxs=075) (CELLAVISION MANUAL DIFF)2018-07-22 13:00:00 Test Item Value Reference Range Comments NEUTROPHILS - REL (CELLAVISION)(BEAKER) (test 80 % pvoh=8646) LYMPHOCYTES - REL (CELLAVISION)(BEAKER) (test 4 % thdp=1801) MONOCYTES - REL (CELLAVISION)(BEAKER) (test 6 % vbjm=0881) EOSINOPHILS - REL (CELLAVISION)(BEAKER) (test 6 % ipjv=0350) BASOPHILS - REL (CELLAVISION)(BEAKER) (test 1 % ucts=5007) MYELOCYTES - REL (CELLAVISION)(BEAKER) (test 3 % 0-0 dcmh=2998) NEUTROPHILS - ABS (CELLAVISION)(BEAKER) (test 10.00 K/ul 1.78-5.38 ijap=9100) LYMPHOCYTES - ABS (CELLAVISION)(BEAKER) (test 0.50 K/ul 1.32-3.57 jjwf=9241) MONOCYTES - ABS (CELLAVISION)(BEAKER) (test 0.75 K/uL 0.30-0.82 sedc=6504) EOSINOPHILS - ABS (CELLAVISION)(BEAKER) (test 0.75 K/uL 0.04-0.54 lzlr=0843) BASOPHILS - ABS (CELLAVISION)(BEAKER) (test 0.13 K/uL 0.01-0.08 zouo=6253) MYELOCYTES-ABS (CELLAVISION)(BEAKER) (test 0.38 K/uL 0.00-0.00 czcr=8466) TOTAL COUNTED (BEAKER) (test nutg=4674) 100 WBC MORPHOLOGY (BEAKER) (test luhj=329) Normal PLT MORPHOLOGY (BEAKER) (test jrys=744) Normal POLYCHROMATOPHILLIC RBCS(BEAKER) (test mtqn=709) 1+ few ANISOCYTOSIS (BEAKER) (test gzja=991) 1+ few MACROCYTES (BEAKER) (test jiap=566) 1+ few POIKILOCYTES (BEAKER) (test fmiz=705) 2+ moderate ARTIFACT (CELLAVISION)(BEAKER) (test fyqx=6523) Present PLATELET CONCENTRATION (CELLAVISION)(BEAKER) Adequate (test ypcv=0842) Received comment: User comments: Slide comments:POCT-GLUCOSE [id number] 12: 50:00 Test Item Value Reference Range Comments POC-GLUCOSE METER (BEAKER) 117 mg/dL 70-110 TESTED AT [facility] [address] [facility] (test unmq=8237) [facility] [address] [id number] 07:00:00 Test Item Value Reference Range Comments PHOSPHORUS (BEAKER) (test qsyf=297) 4.2 mg/dL 2.3-4.7 [id number] 07:00:00 Test Item Value Reference Range Comments MAGNESIUM (BEAKER) (test tgjy=413) 1.9 mg/dL 1.6-2.6 BASIC METABOLIC [id number] 07:00:00 Test Item Value Reference Range Comments SODIUM (BEAKER) (test 140 meq/L 136-145 zixe=669) POTASSIUM (BEAKER) (test 4.0 meq/L 3.5-5.1 apbl=253) CHLORIDE (BEAKER) (test 101 meq/L 98-107 wbxw=847) CO2 (BEAKER) (test 32 meq/L 22-29 yavt=030) BLOOD UREA NITROGEN 9 mg/dL 7-21 (BEAKER) (test fths=138) CREATININE (BEAKER) (test 0.62 mg/dL 0.57-1.25 qaer=985) GLUCOSE RANDOM (BEAKER) 104 mg/dL 70-105 (test zzti=282) CALCIUM (BEAKER) (test 8.4 mg/dL 8.4-10.2 iqdh=121) EGFR (BEAKER) (test 138 mL/min/1.73 sq m ESTIMATED GFR IS NOT xgph=5311) ACCURATE CREATININE CLEARANCE IN PREDICTING GLOMERULAR FILTRATION RATE. ESTIMATED GFR IS NOT APPLICABLE FOR DIALYSIS PATIENTS. CBC W/PLT COUNT & AUTO [id number] 10:11:00 Test Item Value Reference Range Comments WHITE BLOOD CELL COUNT (BEAKER) (test wfbd=967) 10.8 K/ L 3.5-10.5 RED BLOOD CELL COUNT (BEAKER) (test cxrr=386) 3.48 M/ L 4.63-6.08 HEMOGLOBIN (BEAKER) (test lwzc=279) 10.6 GM/DL 13.7-17.5 HEMATOCRIT (BEAKER) (test ruov=500) 33.9 % 40.1-51.0 MEAN CORPUSCULAR VOLUME (BEAKER) (test ujrh=465) 97.4 fL 79.0-92.2 MEAN CORPUSCULAR HEMOGLOBIN (BEAKER) (test 30.5 pg 25.7-32.2 eawo=881) MEAN CORPUSCULAR HEMOGLOBIN CONC (BEAKER) (test 31.3 GM/DL 32.3-36.5 qetl=327) RED CELL DISTRIBUTION WIDTH (BEAKER) (test 15.4 % 11.6-14.4 emnj=608) PLATELET COUNT (BEAKER) (test akuy=144) 431 K/CU MM 150-450 MEAN PLATELET VOLUME (BEAKER) (test vheg=740) 10.0 fL 9.4-12.4 NUCLEATED RED BLOOD CELLS (BEAKER) (test 0 /100 WBC 0-0 xjmq=030) (CELLAVISION MANUAL DIFF)2018-07-21 10:11:00 Test Item Value Reference Range Comments NEUTROPHILS - REL (CELLAVISION)(BEAKER) (test 77 % eeud=3240) LYMPHOCYTES - REL (CELLAVISION)(BEAKER) (test 3 % jcnq=6762) MONOCYTES - REL (CELLAVISION)(BEAKER) (test 7 % tbin=2635) EOSINOPHILS - REL (CELLAVISION)(BEAKER) (test 3 % nyog=2307) MYELOCYTES - REL (CELLAVISION)(BEAKER) (test 4 % 0-0 eagj=2348) PROMYELOCYTES - REL (CELLAVSION)(BEAKER) (test 1 % 0-0 qvhm=8812) BANDS - REL (CELLAVISION)(BEAKER) (test 5 % 0-10 vxgm=6522) NEUTROPHILS - ABS (CELLAVISION)(BEAKER) (test 8.32 K/ul 1.78-5.38 pdiz=3524) LYMPHOCYTES - ABS (CELLAVISION)(BEAKER) (test 0.32 K/ul 1.32-3.57 iiqc=6438) MONOCYTES - ABS (CELLAVISION)(BEAKER) (test 0.76 K/uL 0.30-0.82 iovl=4962) EOSINOPHILS - ABS (CELLAVISION)(BEAKER) (test 0.32 K/uL 0.04-0.54 jrsg=7660) MYELOCYTES-ABS (CELLAVISION)(BEAKER) (test 0.43 K/uL 0.00-0.00 rnhc=1939) PROMYELOCYTES - ABS (CELLAVISION)(BEAKER) (test 0.11 K/uL 0.00-0.00 bjzd=2892) BANDS - ABS (CELLAVISION)(BEAKER) (test 0.54 K/uL 0.00-0.80 mjib=7612) TOTAL COUNTED (BEAKER) (test ekvj=3426) 100 WBC MORPHOLOGY (BEAKER) (test wirz=572) Normal PLT MORPHOLOGY (BEAKER) (test piqi=937) Normal ANISOCYTOSIS (BEAKER) (test qscm=643) 2+ moderate MICROCYTES (BEAKER) (test vxgl=241) 2+ moderate ARTIFACT (CELLAVISION)(BEAKER) (test intk=0562) Present PLATELET CONCENTRATION (CELLAVISION)(BEAKER) Adequate (test uomf=2783) Received comment: User comments: Slide comments:[id number] 05:39:00 Test Item Value Reference Range Comments PHOSPHORUS (BEAKER) (test pwhe=405) 5.1 mg/dL 2.3-4.7 [id number] 05:39:00 Test Item Value Reference Range Comments MAGNESIUM (BEAKER) (test mjnk=366) 2.0 mg/dL 1.6-2.6 BASIC METABOLIC [id number] 05:39:00 Test Item Value Reference Range Comments SODIUM (BEAKER) (test 139 meq/L 136-145 zfpd=369) POTASSIUM (BEAKER) (test 4.3 meq/L 3.5-5.1 lwlv=204) CHLORIDE (BEAKER) (test 100 meq/L 98-107 rcyf=508) CO2 (BEAKER) (test 29 meq/L 22-29 pslr=717) BLOOD UREA NITROGEN 10 mg/dL 7-21 (BEAKER) (test znfb=289) CREATININE (BEAKER) (test 0.64 mg/dL 0.57-1.25 vums=040) GLUCOSE RANDOM (BEAKER) 97 mg/dL 70-105 (test eqaj=530) CALCIUM (BEAKER) (test 8.6 mg/dL 8.4-10.2 kfxo=982) EGFR (BEAKER) (test 133 mL/min/1.73 sq m ESTIMATED GFR IS NOT rlsn=2628) ACCURATE CREATININE CLEARANCE IN PREDICTING GLOMERULAR FILTRATION RATE. ESTIMATED GFR IS NOT APPLICABLE FOR DIALYSIS PATIENTS. VANCOMYCIN LEVEL, [id number] 23:38:00 Test Item Value Reference Range Comments VANCOMYCIN TROUGH (BEAKER) (test kgjc=659) 5.5 ug/mL 10.0-20.0 CBC W/PLT COUNT & AUTO [id number] 10:44:00 Test Item Value Reference Range Comments WHITE BLOOD CELL COUNT (BEAKER) (test tggj=078) 14.3 K/ L 3.5-10.5 RED BLOOD CELL COUNT (BEAKER) (test wuuf=670) 3.43 M/ L 4.63-6.08 HEMOGLOBIN (BEAKER) (test idyu=878) 10.4 GM/DL 13.7-17.5 HEMATOCRIT (BEAKER) (test ygbo=438) 33.5 % 40.1-51.0 MEAN CORPUSCULAR VOLUME (BEAKER) (test mhuk=430) 97.7 fL 79.0-92.2 MEAN CORPUSCULAR HEMOGLOBIN (BEAKER) (test 30.3 pg 25.7-32.2 wvmd=048) MEAN CORPUSCULAR HEMOGLOBIN CONC (BEAKER) (test 31.0 GM/DL 32.3-36.5 tzin=116) RED CELL DISTRIBUTION WIDTH (BEAKER) (test 15.7 % 11.6-14.4 mghi=193) PLATELET COUNT (BEAKER) (test acrt=478) 402 K/CU MM 150-450 MEAN PLATELET VOLUME (BEAKER) (test iwxq=674) 10.6 fL 9.4-12.4 NUCLEATED RED BLOOD CELLS (BEAKER) (test 0 /100 WBC 0-0 kyfu=210) (CELLAVISION MANUAL DIFF)[id number] 10:44:00 Test Item Value Reference Range Comments NEUTROPHILS - REL (CELLAVISION)(BEAKER) (test 83 % ocge=4939) LYMPHOCYTES - REL (CELLAVISION)(BEAKER) (test 2 % axbh=6347) MONOCYTES - REL (CELLAVISION)(BEAKER) (test 9 % rscr=8158) EOSINOPHILS - REL (CELLAVISION)(BEAKER) (test 3 % ohpa=6922) MYELOCYTES - REL (CELLAVISION)(BEAKER) (test 1 % 0-0 fvif=0927) BANDS - REL (CELLAVISION)(BEAKER) (test 2 % 0-10 wklp=3804) NEUTROPHILS - ABS (CELLAVISION)(BEAKER) (test 11.87 K/ul 1.78-5.38 ehsh=6553) LYMPHOCYTES - ABS (CELLAVISION)(BEAKER) (test 0.29 K/ul 1.32-3.57 ubog=6306) MONOCYTES - ABS (CELLAVISION)(BEAKER) (test 1.29 K/uL 0.30-0.82 qrhm=8656) EOSINOPHILS - ABS (CELLAVISION)(BEAKER) (test 0.43 K/uL 0.04-0.54 eutp=0037) MYELOCYTES-ABS (CELLAVISION)(BEAKER) (test 0.14 K/uL 0.00-0.00 sgwx=9016) BANDS - ABS (CELLAVISION)(BEAKER) (test 0.29 K/uL 0.00-0.80 lizu=4713) TOTAL COUNTED (BEAKER) (test tkar=6156) 100 WBC MORPHOLOGY (BEAKER) (test qtpe=353) Normal GIANT PLATELETS (BEAKER) (test wizk=883) Present POLYCHROMATOPHILLIC RBCS(BEAKER) (test skex=882) 1+ few ANISOCYTOSIS (BEAKER) (test gdyz=935) 1+ few ARTIFACT (CELLAVISION)(BEAKER) (test ctnk=4694) Present PLATELET CONCENTRATION (CELLAVISION)(BEAKER) Adequate (test qhdg=2272) Received comment: User comments: Slide comments:[id number] 06:44:00 Test Item Value Reference Range Comments MAGNESIUM (BEAKER) (test 2.1 mg/dL 1.6-2.6 Specimen slightly hemolyzed wliw=319) [id number] 06:44:00 Test Item Value Reference Range Comments PHOSPHORUS (BEAKER) (test 5.0 mg/dL 2.3-4.7 Specimen slightly hemolyzed zgzh=214) BASIC METABOLIC [id number] 06:44:00 Test Item Value Reference Range Comments SODIUM (BEAKER) (test 138 meq/L 136-145 fjpk=333) POTASSIUM (BEAKER) (test 4.6 meq/L 3.5-5.1 Specimen slightly rfcr=569) hemolyzed CHLORIDE (BEAKER) (test 99 meq/L 98-107 ijnl=840) CO2 (BEAKER) (test 30 meq/L 22-29 hfhm=048) BLOOD UREA NITROGEN 10 mg/dL 7-21 (BEAKER) (test imqo=026) CREATININE (BEAKER) (test 0.67 mg/dL 0.57-1.25 Specimen slightly fkkc=156) hemolyzed GLUCOSE RANDOM (BEAKER) 87 mg/dL 70-105 (test jyts=319) CALCIUM (BEAKER) (test 8.7 mg/dL 8.4-10.2 obgd=230) EGFR (BEAKER) (test 127 mL/min/1.73 sq m ESTIMATED GFR IS NOT pjrq=7237) ACCURATE CREATININE CLEARANCE IN PREDICTING GLOMERULAR FILTRATION RATE. ESTIMATED GFR IS NOT APPLICABLE FOR DIALYSIS PATIENTS. [id number] 06:06:00 Test Item Value Reference Range Comments PROTIME (BEAKER) (test dfcn=099) 15.6 seconds 11.7-14.7 INR (BEAKER) (test nydp=901) 1.2 <=5.9 PARTIAL THROMBOPLASTIN TIME (BEAKER) (test 46.0 seconds 22.5-36.0 zvkb=524) RECOMMENDED COUMADIN/WARFARIN INR THERAPY RANGESSTANDARD DOSE: 2.0 - 3.0 Includes: PROPHYLAXIS forvenous thrombosis, systemic embolization; TREATMENT for venous thrombosis and/or pulmonary embolus.HIGH RISK: Target INR is 2.5-3.5 for patients with mechanical heart valves.SPUTUM CULTURE + GRAM [id number] 14:44:00 Test Item Value Reference Range Comments CULTURE (BEAKER) (test Oropharyngeal contamination, twef=9087) specimen rejected. Recollect requested. GRAM STAIN RESULT (BEAKER) <1+ WBCs (test qdxw=2054) GRAM STAIN RESULT (BEAKER) >25 epithelial cells (test lhmz=30855) GRAM STAIN RESULT (BEAKER) <1+ gram positive rods (test crsj=37549) RAD, CHEST, 1 VIEW, NON [id number] 13:59:00Reason for exam:-> leukocytosis in setting of [...] MDReport Verified Date/Time: 07/19/2018 13:59:21 Reading Location: [address] Consult Reading Room URINALYSIS W/ REFLEX URINE [id number] 11:14:00 Test Item Value Reference Range Comments COLOR (BEAKER) (test zucd=418) Light Yellow CLARITY (BEAKER) (test uboj=352) Clear SPECIFIC GRAVITY UA (BEAKER) (test txdy=031) 1.013 1.001-1.035 PH UA (BEAKER) (test ajwb=710) 6.0 5.0-8.0 PROTEIN UA (BEAKER) (test aaon=355) Negative Negative GLUCOSE UA (BEAKER) (test wooj=106) Negative Negative KETONES UA (BEAKER) (test xyls=436) Negative Negative BILIRUBIN UA (BEAKER) (test lcdo=756) Negative Negative BLOOD UA (BEAKER) (test gowf=011) Trace Negative NITRITE UA (BEAKER) (test egvj=274) Negative Negative LEUKOCYTE ESTERASE UA (BEAKER) (test jpfn=188) Small Negative UROBILINOGEN UA (BEAKER) (test wjzz=829) 0.2 mg/dL 0.2-1.0 RBC UA (BEAKER) (test fdpb=683) 2 /HPF WBC UA (BEAKER) (test fqzn=480) 15 /HPF MUCUS (BEAKER) (test lcnu=0951) Occasional HYALINE CASTS (BEAKER) (test lbyx=131) 2 /LPF SOURCE(BEAKER) (test rcof=0893) POCT-GLUCOSE [id number] 06:46:00 Test Item Value Reference Range Comments POC-GLUCOSE METER (BEAKER) 102 mg/dL 70-110 TESTED AT [facility] [address] [facility] (test ogpf=5844) [facility] [address] [id number] 04:52:00 Test Item Value Reference Range Comments PHOSPHORUS (BEAKER) (test ebyv=748) 4.1 mg/dL 2.3-4.7 [id number] 04:52:00 Test Item Value Reference Range Comments MAGNESIUM (BEAKER) (test exht=105) 1.8 mg/dL 1.6-2.6 BASIC METABOLIC [id number] 04:52:00 Test Item Value Reference Range Comments SODIUM (BEAKER) (test 138 meq/L 136-145 grtn=105) POTASSIUM (BEAKER) (test 3.7 meq/L 3.5-5.1 ooxz=639) CHLORIDE (BEAKER) (test 101 meq/L 98-107 nolc=403) CO2 (BEAKER) (test 26 meq/L 22-29 nhrc=007) BLOOD UREA NITROGEN 10 mg/dL 7-21 (BEAKER) (test xfjp=662) CREATININE (BEAKER) (test 0.67 mg/dL 0.57-1.25 rowx=499) GLUCOSE RANDOM (BEAKER) 111 mg/dL 70-105 (test ukut=190) CALCIUM (BEAKER) (test 8.5 mg/dL 8.4-10.2 feew=754) EGFR (BEAKER) (test 127 mL/min/1.73 sq m ESTIMATED GFR IS NOT doik=6670) ACCURATE CREATININE CLEARANCE IN PREDICTING GLOMERULAR FILTRATION RATE. ESTIMATED GFR IS NOT APPLICABLE FOR DIALYSIS PATIENTS. CBC W/PLT COUNT & AUTO [id number] 04:25:00 Test Item Value Reference Range Comments WHITE BLOOD CELL COUNT (BEAKER) (test cmnx=214) 13.6 K/ L 3.5-10.5 RED BLOOD CELL COUNT (BEAKER) (test ojey=249) 3.58 M/ L 4.63-6.08 HEMOGLOBIN (BEAKER) (test bmvd=597) 10.8 GM/DL 13.7-17.5 HEMATOCRIT (BEAKER) (test wlae=338) 34.8 % 40.1-51.0 MEAN CORPUSCULAR VOLUME (BEAKER) (test ztck=405) 97.2 fL 79.0-92.2 MEAN CORPUSCULAR HEMOGLOBIN (BEAKER) (test 30.2 pg 25.7-32.2 xvtd=704) MEAN CORPUSCULAR HEMOGLOBIN CONC (BEAKER) (test 31.0 GM/DL 32.3-36.5 wldo=824) RED CELL DISTRIBUTION WIDTH (BEAKER) (test 15.1 % 11.6-14.4 cxaq=525) PLATELET COUNT (BEAKER) (test xcxv=926) 392 K/CU MM 150-450 MEAN PLATELET VOLUME (BEAKER) (test dkcd=192) 10.0 fL 9.4-12.4 NUCLEATED RED BLOOD CELLS (BEAKER) (test 0 /100 WBC 0-0 gvfc=161) NEUTROPHILS RELATIVE PERCENT (BEAKER) (test 78 % fege=341) LYMPHOCYTES RELATIVE PERCENT (BEAKER) (test 5 % qrwr=035) MONOCYTES RELATIVE PERCENT (BEAKER) (test 10 % vvmg=297) EOSINOPHILS RELATIVE PERCENT (BEAKER) (test 2 % saxa=175) BASOPHILS RELATIVE PERCENT (BEAKER) (test 1 % xczc=693) NEUTROPHILS ABSOLUTE COUNT (BEAKER) (test 10.68 K/ L 1.78-5.38 jytd=075) LYMPHOCYTES ABSOLUTE COUNT (BEAKER) (test 0.68 K/ L 1.32-3.57 amdr=786) MONOCYTES ABSOLUTE COUNT (BEAKER) (test 1.40 K/ L 0.30-0.82 uflw=135) EOSINOPHILS ABSOLUTE COUNT (BEAKER) (test 0.31 K/ L 0.04-0.54 kvbh=629) BASOPHILS ABSOLUTE COUNT (BEAKER) (test 0.08 K/ L 0.01-0.08 scsf=063) IMMATURE GRANULOCYTES-RELATIVE PERCENT (BEAKER) 3 % 0-1 (test upon=2145) [id number] 04:11:00 Test Item Value Reference Range Comments PROTIME (BEAKER) (test oshs=381) 15.8 seconds 11.7-14.7 INR (BEAKER) (test xzfq=331) 1.2 <=5.9 PARTIAL THROMBOPLASTIN TIME (BEAKER) (test 48.2 seconds 22.5-36.0 aiux=190) RECOMMENDED COUMADIN/WARFARIN INR THERAPY RANGESSTANDARD DOSE: 2.0 - 3.0 Includes: PROPHYLAXIS forvenous thrombosis, systemic embolization; TREATMENT for venous thrombosis and/or pulmonary embolus.HIGH RISK: Target INR is 2.5-3.5 for patients with mechanical heart valves.POCT-GLUCOSE [id number] 00:11:00 Test Item Value Reference Range Comments POC-GLUCOSE METER (BEAKER) 76 mg/dL 70-110 TESTED AT [address] (test gqzr=2858) [place] [address] POCT-GLUCOSE [id number] 17:53:00 Test Item Value Reference Range Comments POC-GLUCOSE METER (BEAKER) 94 mg/dL 70-110 TESTED AT [address] (test rshf=5697) [place] [address] T4, [id number] 11:41:00 Test Item Value Reference Range Comments FREE T4 (BEAKER) (test idyf=625) 0.90 ng/dL 0.70-1.48 POCT-GLUCOSE [id number] 11:35:00 Test Item Value Reference Range Comments POC-GLUCOSE METER (BEAKER) 103 mg/dL 70-110 TESTED AT [address] (test mqdo=5284) [place] [address] TSH/FREE T4 IF [id number] 10:50:00 Test Item Value Reference Range Comments THYROID STIMULATING HORMONE (BEAKER) (test 14.67 uIU/mL 0.35-4.94 mbny=692) POCT-GLUCOSE [id number] 06:42:00 Test Item Value Reference Range Comments POC-GLUCOSE METER (BEAKER) 111 mg/dL 70-110 TESTED AT [address] (test pxbs=4320) [place] [address] CBC W/PLT COUNT & AUTO [id number] 05:20:00 Test Item Value Reference Range Comments WHITE BLOOD CELL COUNT (BEAKER) (test pnqs=490) 11.4 K/ L 3.5-10.5 RED BLOOD CELL COUNT (BEAKER) (test heso=534) 3.40 M/ L 4.63-6.08 HEMOGLOBIN (BEAKER) (test bvet=592) 10.3 GM/DL 13.7-17.5 HEMATOCRIT (BEAKER) (test ufuq=530) 33.6 % 40.1-51.0 MEAN CORPUSCULAR VOLUME (BEAKER) (test ubfk=871) 98.8 fL 79.0-92.2 MEAN CORPUSCULAR HEMOGLOBIN (BEAKER) (test 30.3 pg 25.7-32.2 moan=379) MEAN CORPUSCULAR HEMOGLOBIN CONC (BEAKER) (test 30.7 GM/DL 32.3-36.5 ekda=571) RED CELL DISTRIBUTION WIDTH (BEAKER) (test 15.3 % 11.6-14.4 fahw=746) PLATELET COUNT (BEAKER) (test ujes=198) 365 K/CU MM 150-450 MEAN PLATELET VOLUME (BEAKER) (test uabv=728) 10.2 fL 9.4-12.4 NUCLEATED RED BLOOD CELLS (BEAKER) (test 0 /100 WBC 0-0 szee=623) NEUTROPHILS RELATIVE PERCENT (BEAKER) (test 80 % llsl=621) LYMPHOCYTES RELATIVE PERCENT (BEAKER) (test 6 % sgim=145) MONOCYTES RELATIVE PERCENT (BEAKER) (test 9 % xssy=707) EOSINOPHILS RELATIVE PERCENT (BEAKER) (test 3 % zisr=410) BASOPHILS RELATIVE PERCENT (BEAKER) (test 0 % warn=741) NEUTROPHILS ABSOLUTE COUNT (BEAKER) (test 9.06 K/ L 1.78-5.38 rxza=963) LYMPHOCYTES ABSOLUTE COUNT (BEAKER) (test 0.72 K/ L 1.32-3.57 zapj=718) MONOCYTES ABSOLUTE COUNT (BEAKER) (test 1.06 K/ L 0.30-0.82 pjoh=468) EOSINOPHILS ABSOLUTE COUNT (BEAKER) (test 0.28 K/ L 0.04-0.54 qpke=349) BASOPHILS ABSOLUTE COUNT (BEAKER) (test 0.05 K/ L 0.01-0.08 keav=468) IMMATURE GRANULOCYTES-RELATIVE PERCENT (BEAKER) 2 % 0-1 (test hift=0966) [id number] 05:00:00 Test Item Value Reference Range Comments PHOSPHORUS (BEAKER) (test rogu=865) 5.2 mg/dL 2.3-4.7 [id number] 05:00:00 Test Item Value Reference Range Comments MAGNESIUM (BEAKER) (test wrvc=493) 2.0 mg/dL 1.6-2.6 BASIC METABOLIC [id number] 05:00:00 Test Item Value Reference Range Comments SODIUM (BEAKER) (test 141 meq/L 136-145 famf=633) POTASSIUM (BEAKER) (test 3.7 meq/L 3.5-5.1 jucn=412) CHLORIDE (BEAKER) (test 102 meq/L 98-107 sabb=600) CO2 (BEAKER) (test 29 meq/L 22-29 lmad=804) BLOOD UREA NITROGEN 7 mg/dL 7-21 (BEAKER) (test dwxl=259) CREATININE (BEAKER) (test 0.68 mg/dL 0.57-1.25 qiet=920) GLUCOSE RANDOM (BEAKER) 114 mg/dL 70-105 (test qkma=235) CALCIUM (BEAKER) (test 8.2 mg/dL 8.4-10.2 echz=909) EGFR (BEAKER) (test 124 mL/min/1.73 sq m ESTIMATED GFR IS NOT ygmd=5728) ACCURATE CREATININE CLEARANCE IN PREDICTING GLOMERULAR FILTRATION RATE. ESTIMATED GFR IS NOT APPLICABLE FOR DIALYSIS PATIENTS. [id number] 04:55:00 Test Item Value Reference Range Comments PROTIME (BEAKER) (test dkdk=640) 15.2 seconds 11.7-14.7 INR (BEAKER) (test nsel=045) 1.2 <=5.9 PARTIAL THROMBOPLASTIN TIME (BEAKER) (test 38.9 seconds 22.5-36.0 kvji=053) RECOMMENDED COUMADIN/WARFARIN INR THERAPY RANGESSTANDARD DOSE: 2.0 - 3.0 Includes: PROPHYLAXIS forvenous thrombosis, systemic embolization; TREATMENT for venous thrombosis and/or pulmonary embolus.HIGH RISK: Target INR is 2.5-3.5 for patients with mechanical heart valves.CBC W/PLT COUNT & AUTO [id number] 08:47:00 Test Item Value Reference Range Comments WHITE BLOOD CELL COUNT (BEAKER) (test qnny=768) 13.2 K/ L 3.5-10.5 RED BLOOD CELL COUNT (BEAKER) (test nmpp=353) 3.21 M/ L 4.63-6.08 HEMOGLOBIN (BEAKER) (test nudn=096) 9.8 GM/DL 13.7-17.5 HEMATOCRIT (BEAKER) (test fjvo=109) 30.9 % 40.1-51.0 MEAN CORPUSCULAR VOLUME (BEAKER) (test mxxj=729) 96.3 fL 79.0-92.2 MEAN CORPUSCULAR HEMOGLOBIN (BEAKER) (test 30.5 pg 25.7-32.2 qcnm=412) MEAN CORPUSCULAR HEMOGLOBIN CONC (BEAKER) (test 31.7 GM/DL 32.3-36.5 jrsk=937) RED CELL DISTRIBUTION WIDTH (BEAKER) (test 15.2 % 11.6-14.4 jlwb=136) PLATELET COUNT (BEAKER) (test ppmr=103) 310 K/CU MM 150-450 MEAN PLATELET VOLUME (BEAKER) (test aeen=766) 10.1 fL 9.4-12.4 NUCLEATED RED BLOOD CELLS (BEAKER) (test 0 /100 WBC 0-0 lizb=958) (CELLAVISION MANUAL DIFF)2018-07-17 08:47:00 Test Item Value Reference Range Comments NEUTROPHILS - REL (CELLAVISION)(BEAKER) (test 88 % xpov=9651) LYMPHOCYTES - REL (CELLAVISION)(BEAKER) (test 2 % otgq=8538) MONOCYTES - REL (CELLAVISION)(BEAKER) (test 5 % jpjv=4751) EOSINOPHILS - REL (CELLAVISION)(BEAKER) (test 3 % uzql=7906) MYELOCYTES - REL (CELLAVISION)(BEAKER) (test 1 % 0-0 nmzt=2569) ATYPICAL LYMPHOCYTES - REL (CELLAVISION)(BEAKER) 1 % 0-0 (test jugj=5821) NEUTROPHILS - ABS (CELLAVISION)(BEAKER) (test 11.62 K/ul 1.78-5.38 dmqa=3543) LYMPHOCYTES - ABS (CELLAVISION)(BEAKER) (test 0.26 K/ul 1.32-3.57 rwwh=4965) MONOCYTES - ABS (CELLAVISION)(BEAKER) (test 0.66 K/uL 0.30-0.82 mwvc=8711) EOSINOPHILS - ABS (CELLAVISION)(BEAKER) (test 0.40 K/uL 0.04-0.54 lgdw=2922) MYELOCYTES-ABS (CELLAVISION)(BEAKER) (test 0.13 K/uL 0.00-0.00 ukwx=3968) ATYPICAL LYMPHOCYTES - ABS (CELLAVISION)(BEAKER) 0.13 K/uL 0.00-0.00 (test msnj=0328) TOTAL COUNTED (BEAKER) (test lhgq=7842) 100 WBC MORPHOLOGY (BEAKER) (test lxut=562) Normal PLT MORPHOLOGY (BEAKER) (test cydd=138) Normal ANISOCYTOSIS (BEAKER) (test wnrn=492) 2+ moderate MICROCYTES (BEAKER) (test chkk=989) 2+ moderate ARTIFACT (CELLAVISION)(BEAKER) (test vzjk=3460) Present PLATELET CONCENTRATION (CELLAVISION)(BEAKER) Adequate (test csem=8885) Received comment: User comments: Slide comments:POCT-GLUCOSE [id number] 06: 41:00 Test Item Value Reference Range Comments POC-GLUCOSE METER (BEAKER) 115 mg/dL 70-110 TESTED AT [address] (test catm=5190) [facility] [address] BASIC METABOLIC [id number] 04:53:00 Test Item Value Reference Range Comments SODIUM (BEAKER) (test 138 meq/L 136-145 lnnh=158) POTASSIUM (BEAKER) (test 3.4 meq/L 3.5-5.1 vaqk=571) CHLORIDE (BEAKER) (test 104 meq/L 98-107 yayy=780) CO2 (BEAKER) (test 25 meq/L 22-29 yhns=695) BLOOD UREA NITROGEN 7 mg/dL 7-21 (BEAKER) (test tdvs=215) CREATININE (BEAKER) (test 0.68 mg/dL 0.57-1.25 qtui=804) GLUCOSE RANDOM (BEAKER) 173 mg/dL 70-105 (test yuiu=489) CALCIUM (BEAKER) (test 7.6 mg/dL 8.4-10.2 zlzn=676) EGFR (BEAKER) (test 124 mL/min/1.73 sq m ESTIMATED GFR IS NOT fvrb=8998) ACCURATE CREATININE CLEARANCE IN PREDICTING GLOMERULAR FILTRATION RATE. ESTIMATED GFR IS NOT APPLICABLE FOR DIALYSIS PATIENTS. [id number] 04:37:00 Test Item Value Reference Range Comments PHOSPHORUS (BEAKER) (test myax=556) 3.9 mg/dL 2.3-4.7 [id number] 04:37:00 Test Item Value Reference Range Comments MAGNESIUM (BEAKER) (test qgaa=479) 1.6 mg/dL 1.6-2.6 [id number] 04:37:00 Test Item Value Reference Range Comments ALBUMIN (BEAKER) (test sdes=8147) 3.2 g/dL 3.5-5.0 [id number] 04:24:00 Test Item Value Reference Range Comments PROTIME (BEAKER) (test kcsh=138) 15.9 seconds 11.7-14.7 INR (BEAKER) (test scxb=811) 1.2 <=5.9 PARTIAL THROMBOPLASTIN TIME (BEAKER) (test 51.7 seconds 22.5-36.0 swbv=995) RECOMMENDED COUMADIN/WARFARIN INR THERAPY RANGESSTANDARD DOSE: 2.0 - 3.0 Includes: PROPHYLAXIS forvenous thrombosis, systemic embolization; TREATMENT for venous thrombosis and/or pulmonary embolus.HIGH RISK: Target INR is 2.5-3.5 for patients with mechanical heart valves.RAD, CHEST, 1 VIEW, NON [id number] 03:56:00Reason for exam:->atelectasisShould this be performed [...] MDReport Verified Date/Time: 07/17/2018 03:56:49 Reading Location: [address] Reading Room POCT-GLUCOSE [id number] 00: 56:00 Test Item Value Reference Range Comments POC-GLUCOSE METER (BEAKER) 115 mg/dL 70-110 TESTED AT [facility] [address] [facility] (test xdxx=7860) [facility] [address] POCT-GLUCOSE [id number] 18:10:00 Test Item Value Reference Range Comments POC-GLUCOSE METER (BEAKER) 116 mg/dL 70-110 TESTED AT [address] (test gqzb=4718) [facility] [address] POCT-GLUCOSE [id number] 13:10:00 Test Item Value Reference Range Comments POC-GLUCOSE METER (BEAKER) 115 mg/dL 70-110 TESTED AT [address] (test amlo=9816) [place] [address] RAD, CHEST, 1 VIEW, NON [id number] 08:20:00Reason for exam:-> atelectasisShould this be performed [...] Gaudencio Barrett Verified Date/Time: 2018 08:20:57 ReadingLocation: [facility] B1 C013X Ortho Consult Reading Room TROPONIN [id number] 08:03:00 Test Item Value Reference Range Comments TROPONIN I (BEAKER) (test jvds=611) 0.01 ng/mL 0.00-0.03 Troponin I (TnI) levels [...] acute neurological disease, and persistent tachyarrhythmia.BLOOD GAS, [id number] 07:42:00 Test Item Value Reference Range Comments PH ARTERIAL (BEAKER) (test xvnh=742) 7.42 7.35-7.45 PCO2 ARTERIAL (BEAKER) (test wcsj=673) 40 mmHg 35-45 PO2 ARTERIAL (BEAKER) (test ejgv=357) 77 mmHg 80-90 O2 SATURATION ARTERIAL (BEAKER) (test pcyt=491) 95.8 % 96.0-97.0 HCO3 ARTERIAL (BEAKER) (test rtvi=633) 25 mmol/L 21-29 BASE EXCESS ARTERIAL (BEAKER) (test uosj=400) 0.9 mmol/L -2.0-3.0 PATIENT TEMPERATURE (BEAKER) (test kojy=7584) 36.8 C FIO2 (BEAKER) (test enmg=5205) 44.0 % POCT-GLUCOSE [id number] 06:03:00 Test Item Value Reference Range Comments POC-GLUCOSE METER (BEAKER) 120 mg/dL 70-110 TESTED AT [address] (test fxhh=3686) [facility] [address] CBC W/PLT COUNT & AUTO [id number] 04:00:00 Test Item Value Reference Range Comments WHITE BLOOD CELL COUNT (BEAKER) (test ypfk=074) 20.3 K/ L 3.5-10.5 RED BLOOD CELL COUNT (BEAKER) (test eapo=333) 3.66 M/ L 4.63-6.08 HEMOGLOBIN (BEAKER) (test faos=980) 11.3 GM/DL 13.7-17.5 HEMATOCRIT (BEAKER) (test dlnq=356) 36.0 % 40.1-51.0 MEAN CORPUSCULAR VOLUME (BEAKER) (test inko=704) 98.4 fL 79.0-92.2 MEAN CORPUSCULAR HEMOGLOBIN (BEAKER) (test 30.9 pg 25.7-32.2 biet=956) MEAN CORPUSCULAR HEMOGLOBIN CONC (BEAKER) (test 31.4 GM/DL 32.3-36.5 xexo=308) RED CELL DISTRIBUTION WIDTH (BEAKER) (test 15.0 % 11.6-14.4 pbye=940) PLATELET COUNT (BEAKER) (test xhgc=979) 319 K/CU MM 150-450 MEAN PLATELET VOLUME (BEAKER) (test pbcf=272) 10.5 fL 9.4-12.4 NUCLEATED RED BLOOD CELLS (BEAKER) (test 0 /100 WBC 0-0 jele=244) NEUTROPHILS RELATIVE PERCENT (BEAKER) (test 86 % qfpd=018) LYMPHOCYTES RELATIVE PERCENT (BEAKER) (test 4 % odbw=126) MONOCYTES RELATIVE PERCENT (BEAKER) (test 9 % bctr=108) EOSINOPHILS RELATIVE PERCENT (BEAKER) (test 0 % fckz=261) BASOPHILS RELATIVE PERCENT (BEAKER) (test 0 % stpp=560) NEUTROPHILS ABSOLUTE COUNT (BEAKER) (test 17.32 K/ L 1.78-5.38 yerm=141) LYMPHOCYTES ABSOLUTE COUNT (BEAKER) (test 0.72 K/ L 1.32-3.57 lmcl=068) MONOCYTES ABSOLUTE COUNT (BEAKER) (test 1.82 K/ L 0.30-0.82 rnqq=177) EOSINOPHILS ABSOLUTE COUNT (BEAKER) (test 0.07 K/ L 0.04-0.54 pnpn=976) BASOPHILS ABSOLUTE COUNT (BEAKER) (test 0.07 K/ L 0.01-0.08 ubzl=335) IMMATURE GRANULOCYTES-RELATIVE PERCENT (BEAKER) 1 % 0-1 (test vrcl=1139) [id number] 03:38:00 Test Item Value Reference Range Comments MAGNESIUM (BEAKER) (test 2.0 mg/dL 1.6-2.6 Specimen slightly hemolyzed yitd=731) [id number] 03:38:00 Test Item Value Reference Range Comments PHOSPHORUS (BEAKER) (test 3.6 mg/dL 2.3-4.7 Specimen slightly hemolyzed cdin=026) BASIC METABOLIC [id number] 03:38:00 Test Item Value Reference Range Comments SODIUM (BEAKER) (test 140 meq/L 136-145 xwtm=014) POTASSIUM (BEAKER) (test 4.0 meq/L 3.5-5.1 Specimen slightly bqlj=863) hemolyzed CHLORIDE (BEAKER) (test 105 meq/L 98-107 pqai=670) CO2 (BEAKER) (test 25 meq/L 22-29 hkvb=101) BLOOD UREA NITROGEN 5 mg/dL 7-21 (BEAKER) (test uthd=800) CREATININE (BEAKER) (test 0.73 mg/dL 0.57-1.25 Specimen slightly sxhd=697) hemolyzed GLUCOSE RANDOM (BEAKER) 129 mg/dL 70-105 (test piiz=286) CALCIUM (BEAKER) (test 8.5 mg/dL 8.4-10.2 gphm=732) EGFR (BEAKER) (test 115 mL/min/1.73 sq m ESTIMATED GFR IS NOT aoca=5625) ACCURATE CREATININE CLEARANCE IN PREDICTING GLOMERULAR FILTRATION RATE. ESTIMATED GFR IS NOT APPLICABLE FOR DIALYSIS PATIENTS. [id number] 03:38:00 Test Item Value Reference Range Comments ALBUMIN (BEAKER) (test 3.9 g/dL 3.5-5.0 Specimen slightly hemolyzed vmhi=3238) [id number] 03:31:00 Test Item Value Reference Range Comments PROTIME (BEAKER) (test hfbx=429) 15.5 seconds 11.7-14.7 INR (BEAKER) (test bsrm=441) 1.2 <=5.9 PARTIAL THROMBOPLASTIN TIME (BEAKER) (test 34.5 seconds 22.5-36.0 gqpb=330) RECOMMENDED COUMADIN/WARFARIN INR THERAPY RANGESSTANDARD DOSE: 2.0 - 3.0 Includes: PROPHYLAXIS forvenous thrombosis, systemic embolization; TREATMENT for venous thrombosis and/or pulmonary embolus.HIGH RISK: Target INR is 2.5-3.5 for patients with mechanical heart valves.POCT-GLUCOSE [id number] 23:39:00 Test Item Value Reference Range Comments POC-GLUCOSE METER (BEAKER) 121 mg/dL 70-110 TESTED AT [address] (test wzim=2600) [facility] [address] POCT-GLUCOSE [id number] 18:25:00 Test Item Value Reference Range Comments POC-GLUCOSE METER (BEAKER) 112 mg/dL 70-110 TESTED AT [facility] [address] [facility] (test ivav=0610) [facility] [address] T4, [id number] 12:56:00 Test Item Value Reference Range Comments FREE T4 (BEAKER) (test wqmu=336) 1.17 ng/dL 0.70-1.48 POCT-GLUCOSE [id number] 11:35:00 Test Item Value Reference Range Comments POC-GLUCOSE METER (BEAKER) 143 mg/dL 70-110 TESTED AT [facility] [address] (test hsda=1373) [place] [address] CBC W/PLT COUNT & AUTO [id number] 07:50:00 Test Item Value Reference Range Comments WHITE BLOOD CELL COUNT (BEAKER) (test fzwj=137) 24.1 K/ L 3.5-10.5 RED BLOOD CELL COUNT (BEAKER) (test jtuo=596) 3.75 M/ L 4.63-6.08 HEMOGLOBIN (BEAKER) (test ghvk=075) 11.7 GM/DL 13.7-17.5 HEMATOCRIT (BEAKER) (test tqbp=883) 35.7 % 40.1-51.0 MEAN CORPUSCULAR VOLUME (BEAKER) (test rmee=252) 95.2 fL 79.0-92.2 MEAN CORPUSCULAR HEMOGLOBIN (BEAKER) (test 31.2 pg 25.7-32.2 gjrj=628) MEAN CORPUSCULAR HEMOGLOBIN CONC (BEAKER) (test 32.8 GM/DL 32.3-36.5 sdye=375) RED CELL DISTRIBUTION WIDTH (BEAKER) (test 14.8 % 11.6-14.4 kjwb=496) PLATELET COUNT (BEAKER) (test gslp=733) 334 K/CU MM 150-450 MEAN PLATELET VOLUME (BEAKER) (test mnoq=359) 10.3 fL 9.4-12.4 NUCLEATED RED BLOOD CELLS (BEAKER) (test 0 /100 WBC 0-0 zang=872) (CELLAVISION MANUAL DIFF)2018-07-15 07:50:00 Test Item Value Reference Range Comments NEUTROPHILS - REL (CELLAVISION)(BEAKER) (test 87 % lrwm=9473) LYMPHOCYTES - REL (CELLAVISION)(BEAKER) (test 3 % tmdm=9820) MONOCYTES - REL (CELLAVISION)(BEAKER) (test 5 % xfck=0190) METAMYELOCYTES - REL (CELLAVISION)(BEAKER) (test 1 % 0-0 vrho=9782) MYELOCYTES - REL (CELLAVISION)(BEAKER) (test 1 % 0-0 azug=4403) BANDS - REL (CELLAVISION)(BEAKER) (test 2 % 0-10 zszt=3546) ATYPICAL LYMPHOCYTES - REL (CELLAVISION)(BEAKER) 1 % 0-0 (test vpez=7880) NEUTROPHILS - ABS (CELLAVISION)(BEAKER) (test 20.97 K/ul 1.78-5.38 hhub=1655) LYMPHOCYTES - ABS (CELLAVISION)(BEAKER) (test 0.72 K/ul 1.32-3.57 rwuz=6760) MONOCYTES - ABS (CELLAVISION)(BEAKER) (test 1.21 K/uL 0.30-0.82 zqil=0270) METAMYELOCYTES - ABS (CELLAVISION)(BEAKER) (test 0.24 K/uL 0.00-0.00 vqho=1000) MYELOCYTES-ABS (CELLAVISION)(BEAKER) (test 0.24 K/uL 0.00-0.00 etzt=9395) BANDS - ABS (CELLAVISION)(BEAKER) (test 0.48 K/uL 0.00-0.80 rmnl=7633) ATYPICAL LYMPHOCYTES - ABS (CELLAVISION)(BEAKER) 0.24 K/uL 0.00-0.00 (test nwlx=9570) TOTAL COUNTED (BEAKER) (test wubv=0511) 100 WBC MORPHOLOGY (BEAKER) (test wiej=096) Normal PLT MORPHOLOGY (BEAKER) (test leqm=185) Normal ANISOCYTOSIS (BEAKER) (test tspz=699) 2+ moderate MICROCYTES (BEAKER) (test vtwr=001) 2+ moderate ARTIFACT (CELLAVISION)(BEAKER) (test vnau=0998) Present PLATELET CONCENTRATION (CELLAVISION)(BEAKER) Adequate (test cuvw=9777) Received comment: User comments: Slide comments:RAD, CHEST, 1 VIEW, NON [id number] -04-16 05:48:00Reason for exam:->postop laryngectomy with trachShould [...] [place] Verified Date/Time: 2018 05:48:22 Reading Location: [address] Neuro Reading Room POCT-GLUCOSE [id number] 05:47:00 Test Item Value Reference Range Comments POC-GLUCOSE METER (BEAKER) 177 mg/dL 70-110 TESTED AT [facility] [address] [facility] (test xnpm=0521) [facility] [address] [id number] 04:29:00 Test Item Value Reference Range Comments PHOSPHORUS (BEAKER) (test hghw=419) 2.3 mg/dL 2.3-4.7 [id number] 04:29:00 Test Item Value Reference Range Comments MAGNESIUM (BEAKER) (test ylxw=714) 1.7 mg/dL 1.6-2.6 BASIC METABOLIC [id number] 04:29:00 Test Item Value Reference Range Comments SODIUM (BEAKER) (test 136 meq/L 136-145 uqqw=943) POTASSIUM (BEAKER) (test 3.7 meq/L 3.5-5.1 buck=286) CHLORIDE (BEAKER) (test 103 meq/L 98-107 puah=854) CO2 (BEAKER) (test 24 meq/L 22-29 uqqj=271) BLOOD UREA NITROGEN 7 mg/dL 7-21 (BEAKER) (test fntu=708) CREATININE (BEAKER) (test 0.73 mg/dL 0.57-1.25 dtfb=757) GLUCOSE RANDOM (BEAKER) 179 mg/dL 70-105 (test tnta=617) CALCIUM (BEAKER) (test 9.2 mg/dL 8.4-10.2 ptsv=514) EGFR (BEAKER) (test 115 mL/min/1.73 sq m ESTIMATED GFR IS NOT hubn=8767) ACCURATE CREATININE CLEARANCE IN PREDICTING GLOMERULAR FILTRATION RATE. ESTIMATED GFR IS NOT APPLICABLE FOR DIALYSIS PATIENTS. [id number] 04:29:00 Test Item Value Reference Range Comments ALBUMIN (BEAKER) (test rslr=3753) 3.8 g/dL 3.5-5.0 [id number] 04:22:00 Test Item Value Reference Range Comments PROTIME (BEAKER) (test civs=951) 14.5 seconds 11.7-14.7 INR (BEAKER) (test jrrb=180) 1.1 <=5.9 PARTIAL THROMBOPLASTIN TIME (BEAKER) (test 42.0 seconds 22.5-36.0 sgfx=716) RECOMMENDED COUMADIN/WARFARIN INR THERAPY RANGESSTANDARD DOSE: 2.0 - 3.0 Includes: PROPHYLAXIS forvenous thrombosis, systemic embolization; TREATMENT for venous thrombosis and/or pulmonary embolus.HIGH RISK: Target INR is 2.5-3.5 for patients with mechanical heart valves.POCT-GLUCOSE [id number] 23:55:00 Test Item Value Reference Range Comments POC-GLUCOSE METER (BEAKER) 159 mg/dL 70-110 TESTED AT [facility] [address] [place] [address] (test txha=1097) [facility] [address] [id number] 19:41:00 Test Item Value Reference Range Comments THYROID STIMULATING HORMONE (BEAKER) (test 6.82 uIU/mL 0.35-4.94 dkvc=681) [id number] 19:26:00 Test Item Value Reference Range Comments PHOSPHORUS (BEAKER) (test dndu=471) 4.9 mg/dL 2.3-4.7 Postop labsPostop labsPostop labsPostop [id number] 19:26:00 Test Item Value Reference Range Comments MAGNESIUM (BEAKER) (test aiaz=815) 1.9 mg/dL 1.6-2.6 Postop labsPostop labsPostop labsPostop labsBASIC METABOLIC [id number] 19: 26:00 Test Item Value Reference Range Comments SODIUM (BEAKER) (test 140 meq/L 136-145 mpmo=601) POTASSIUM (BEAKER) (test 4.6 meq/L 3.5-5.1 wwua=018) CHLORIDE (BEAKER) (test 107 meq/L 98-107 ofrl=468) CO2 (BEAKER) (test 26 meq/L 22-29 mhuu=509) BLOOD UREA NITROGEN 8 mg/dL 7-21 (BEAKER) (test tnqu=373) CREATININE (BEAKER) (test 0.77 mg/dL 0.57-1.25 gjsp=200) GLUCOSE RANDOM (BEAKER) 109 mg/dL 70-105 (test pjbm=980) CALCIUM (BEAKER) (test 9.4 mg/dL 8.4-10.2 qsmn=631) EGFR (BEAKER) (test 108 mL/min/1.73 sq m ESTIMATED GFR IS NOT gqkh=5735) ACCURATE CREATININE CLEARANCE IN PREDICTING GLOMERULAR FILTRATION RATE. ESTIMATED GFR IS NOT APPLICABLE FOR DIALYSIS PATIENTS. Postop labsPostop labsPostop labsPostop [id number] 19:26:00 Test Item Value Reference Range Comments ALBUMIN (BEAKER) (test tmyn=2994) 3.9 g/dL 3.5-5.0 Postop labsPostop labsPostop labsPostop [id number] 19:24:00 Test Item Value Reference Range Comments PREALBUMIN (BEAKER) (test 17 mg/dL 14-45 Specimen slightly hemolyzed awuf=784) PTH, [id number] 19:23:00 Test Item Value Reference Range Comments PARATHYROID HORMONE INTACT (BEAKER) (test 16.1 pg/mL 8.5-72.5 bifm=847) Postop LabsCBC W/PLT COUNT & AUTO [id number] 18:58:00 Test Item Value Reference Range Comments WHITE BLOOD CELL COUNT (BEAKER) (test rxfh=107) 13.3 K/ L 3.5-10.5 RED BLOOD CELL COUNT (BEAKER) (test wqns=559) 3.50 M/ L 4.63-6.08 HEMOGLOBIN (BEAKER) (test wfyf=786) 10.8 GM/DL 13.7-17.5 HEMATOCRIT (BEAKER) (test hrnq=387) 34.1 % 40.1-51.0 MEAN CORPUSCULAR VOLUME (BEAKER) (test qvwl=058) 97.4 fL 79.0-92.2 MEAN CORPUSCULAR HEMOGLOBIN (BEAKER) (test 30.9 pg 25.7-32.2 objg=035) MEAN CORPUSCULAR HEMOGLOBIN CONC (BEAKER) (test 31.7 GM/DL 32.3-36.5 mqoz=693) RED CELL DISTRIBUTION WIDTH (BEAKER) (test 15.1 % 11.6-14.4 avty=538) PLATELET COUNT (BEAKER) (test obcp=088) 278 K/CU MM 150-450 MEAN PLATELET VOLUME (BEAKER) (test ubox=200) 9.5 fL 9.4-12.4 NUCLEATED RED BLOOD CELLS (BEAKER) (test 0 /100 WBC 0-0 vwey=010) NEUTROPHILS RELATIVE PERCENT (BEAKER) (test 84 % hwoz=613) LYMPHOCYTES RELATIVE PERCENT (BEAKER) (test 6 % ogbp=083) MONOCYTES RELATIVE PERCENT (BEAKER) (test 8 % rfno=591) EOSINOPHILS RELATIVE PERCENT (BEAKER) (test 1 % fcfi=140) BASOPHILS RELATIVE PERCENT (BEAKER) (test 0 % usbn=259) NEUTROPHILS ABSOLUTE COUNT (BEAKER) (test 11.15 K/ L 1.78-5.38 sxah=863) LYMPHOCYTES ABSOLUTE COUNT (BEAKER) (test 0.73 K/ L 1.32-3.57 ewhk=024) MONOCYTES ABSOLUTE COUNT (BEAKER) (test 1.04 K/ L 0.30-0.82 gxqv=344) EOSINOPHILS ABSOLUTE COUNT (BEAKER) (test 0.15 K/ L 0.04-0.54 jbss=869) BASOPHILS ABSOLUTE COUNT (BEAKER) (test 0.05 K/ L 0.01-0.08 sqrf=781) IMMATURE GRANULOCYTES-RELATIVE PERCENT (BEAKER) 1 % 0-1 (test josk=0532) BLOOD GAS, [id number] 15:31:00 Test Item Value Reference Range Comments PH ARTERIAL (BEAKER) (test eqfh=472) 7.37 7.35-7.45 PCO2 ARTERIAL (BEAKER) (test rvcg=114) 46 mmHg 35-45 PO2 ARTERIAL (BEAKER) (test iteg=229) 273 mmHg 80-90 O2 SATURATION ARTERIAL (BEAKER) (test jvsr=192) 99.6 % 96.0-97.0 HCO3 ARTERIAL (BEAKER) (test lfdp=618) 26 mmol/L 21-29 BASE EXCESS ARTERIAL (BEAKER) (test nfja=420) 0.4 mmol/L -2.0-3.0 PATIENT TEMPERATURE (BEAKER) (test usox=6224) 37.0 C FIO2 (BEAKER) (test ovmz=2230) 100.0 % HGB/HCT (H&H) - STAT [id number] 15:31:00 Test Item Value Reference Range Comments HEMOGLOBIN (BEAKER) (test njko=596) 11.0 g/dL 13.0-16.8 HEMATOCRIT (BEAKER) (test tome=371) 32.0 % 40.0-50.0 GLUCOSE-STAT [id number] 15:30:00 Test Item Value Reference Range Comments GLUCOSE RANDOM (BEAKER) (test jzvq=546) 87 mg/dL 70-110 SODIUM NA-STAT [id number] 15:30:00 Test Item Value Reference Range Comments SODIUM (BEAKER) (test visk=440) 137 meq/L 135-148 POTASSIUM-STAT [id number] 15:30:00 Test Item Value Reference Range Comments POTASSIUM (BEAKER) (test jaqd=407) 4.0 meq/L 3.6-5.5 ANG, INSERTION G TUBE, W/ [id number] 14:18:00Reason for exam:-> Gastrostomy tubeFINAL REPORT Fluoroscopic guided gastrostomy tube placement, 07/11/2018. Clinical History: Laryngeal cancer. Modality: Fluoroscopy. Service Center Representative: Jack Lima MD. Systems Integration Manager: Dilip Vivas MD. Conscious sedation: 2.0 mg [...] After the tract was dilated, a 14 Romansh catheter was placed into the stomach. The [...] Verified Date/Time: 07/11/2018 14:18 :50 Reading Location: [place] [address] [facility] Reading Room Electronically signed by: JACK Rose 07/11/2018 02:18 PMTSH/FREE T4 IF [id number] 13:24:00 Test Item Value Reference Range Comments THYROID STIMULATING HORMONE (BEAKER) (test 2.37 uIU/mL 0.35-4.94 dytw=473) RAD, CHEST, PA OR AP, 1 [id number] 11:03:00Reason for exam:->coughShould this be performed at the bedside?->NoFINAL REPORT AP chest HISTORY: Cough. COMPARISON: 06/17/2018. IMPRESSION: Tracheostomy tube present. Heart size normal. Lungs clear without effusion or pneumothorax. Intact skeleton. Signed: Ashok Whitaker Verified Date/Time: 2018 11:03:24 Reading Location: [address] Radiology Reading Room 11:03 AMCOMPREHENSIVE METABOLIC [id number] 10:52:00 Test Item Value Reference Range Comments TOTAL PROTEIN (BEAKER) 7.2 gm/dL 6.0-8.3 (test lurr=447) ALBUMIN (BEAKER) (test 3.9 g/dL 3.5-5.0 zfnm=9353) ALKALINE PHOSPHATASE 98 U/L 40-150 (BEAKER) (test cdla=726) BILIRUBIN TOTAL (BEAKER) 0.4 mg/dL 0.2-1.2 (test oqxp=996) SODIUM (BEAKER) (test 141 meq/L 136-145 jyxk=796) POTASSIUM (BEAKER) (test 4.4 meq/L 3.5-5.1 deif=358) CHLORIDE (BEAKER) (test 109 meq/L 98-107 ozkk=373) CO2 (BEAKER) (test 24 meq/L 22-29 ummt=554) BLOOD UREA NITROGEN 14 mg/dL 7-21 (BEAKER) (test drhg=034) CREATININE (BEAKER) (test 0.78 mg/dL 0.57-1.25 mqxv=793) GLUCOSE RANDOM (BEAKER) 107 mg/dL 70-105 (test zosz=804) CALCIUM (BEAKER) (test 9.4 mg/dL 8.4-10.2 zrkn=361) AST (SGOT) (BEAKER) (test 17 U/L 5-34 scfq=971) ALT (SGPT) (BEAKER) (test 17 U/L 6-55 lhqj=958) EGFR (BEAKER) (test 106 mL/min/1.73 sq ESTIMATED GFR IS NOT anlr=3069) m ACCURATE CREATININE CLEARANCE IN PREDICTING GLOMERULAR FILTRATION RATE. ESTIMATED GFR IS NOT APPLICABLE FOR DIALYSIS PATIENTS. CBC W/PLT COUNT & AUTO [id number] 10:32:00 Test Item Value Reference Range Comments WHITE BLOOD CELL COUNT (BEAKER) (test ihgk=477) 10.8 K/ L 3.5-10.5 RED BLOOD CELL COUNT (BEAKER) (test morl=237) 4.08 M/ L 4.63-6.08 HEMOGLOBIN (BEAKER) (test dzee=128) 12.6 GM/DL 13.7-17.5 HEMATOCRIT (BEAKER) (test zakp=361) 39.4 % 40.1-51.0 MEAN CORPUSCULAR VOLUME (BEAKER) (test ercw=484) 96.6 fL 79.0-92.2 MEAN CORPUSCULAR HEMOGLOBIN (BEAKER) (test 30.9 pg 25.7-32.2 ixdo=362) MEAN CORPUSCULAR HEMOGLOBIN CONC (BEAKER) (test 32.0 GM/DL 32.3-36.5 rwct=801) RED CELL DISTRIBUTION WIDTH (BEAKER) (test 15.3 % 11.6-14.4 vjff=699) PLATELET COUNT (BEAKER) (test xrki=186) 321 K/CU MM 150-450 MEAN PLATELET VOLUME (BEAKER) (test dalw=845) 9.9 fL 9.4-12.4 NUCLEATED RED BLOOD CELLS (BEAKER) (test 0 /100 WBC 0-0 zpif=349) NEUTROPHILS RELATIVE PERCENT (BEAKER) (test 76 % rbpz=125) LYMPHOCYTES RELATIVE PERCENT (BEAKER) (test 7 % vach=574) MONOCYTES RELATIVE PERCENT (BEAKER) (test 10 % ymro=109) EOSINOPHILS RELATIVE PERCENT (BEAKER) (test 2 % pybv=718) BASOPHILS RELATIVE PERCENT (BEAKER) (test 1 % uony=763) NEUTROPHILS ABSOLUTE COUNT (BEAKER) (test 8.18 K/ L 1.78-5.38 qwat=300) LYMPHOCYTES ABSOLUTE COUNT (BEAKER) (test 0.79 K/ L 1.32-3.57 extl=609) MONOCYTES ABSOLUTE COUNT (BEAKER) (test 1.04 K/ L 0.30-0.82 jait=882) EOSINOPHILS ABSOLUTE COUNT (BEAKER) (test 0.16 K/ L 0.04-0.54 cdjc=256) BASOPHILS ABSOLUTE COUNT (BEAKER) (test 0.13 K/ L 0.01-0.08 wsul=730) IMMATURE GRANULOCYTES-RELATIVE PERCENT (BEAKER) 5 % 0-1 (test prtn=5568) [id number] 10:30:00 Test Item Value Reference Range Comments PROTIME (BEAKER) (test pvnl=887) 14.6 seconds 11.7-14.7 INR (BEAKER) (test ioxu=451) 1.1 <=5.9 PARTIAL THROMBOPLASTIN TIME (BEAKER) (test 34.3 seconds 22.5-36.0 klof=839) RECOMMENDED COUMADIN/WARFARIN INR THERAPY RANGESSTANDARD DOSE: 2.0 - 3.0 Includes: PROPHYLAXIS forvenous thrombosis, systemic embolization; TREATMENT for venous thrombosis and/or pulmonary embolus.HIGH RISK: Target INR is 2.5-3.5 for patients with mechanical heart valves.BLOOD [id number] 20:01:00 Test Item Value Reference Range Comments CULTURE (BEAKER) (test qpgv=5675) No growth in 5 days BLOOD [id number] 20:01:00 Test Item Value Reference Range Comments CULTURE (BEAKER) (test tcxe=0285) No growth in 5 days CBC W/PLT COUNT & AUTO [id number] 12:54:00 Test Item Value Reference Range Comments WHITE BLOOD CELL COUNT (BEAKER) (test nwmk=675) 6.6 K/ L 3.5-10.5 RED BLOOD CELL COUNT (BEAKER) (test hrib=221) 3.84 M/ L 4.63-6.08 HEMOGLOBIN (BEAKER) (test anac=330) 11.9 GM/DL 13.7-17.5 HEMATOCRIT (BEAKER) (test njaq=947) 37.1 % 40.1-51.0 MEAN CORPUSCULAR VOLUME (BEAKER) (test tclh=373) 96.6 fL 79.0-92.2 MEAN CORPUSCULAR HEMOGLOBIN (BEAKER) (test 31.0 pg 25.7-32.2 rbve=423) MEAN CORPUSCULAR HEMOGLOBIN CONC (BEAKER) (test 32.1 GM/DL 32.3-36.5 tvbv=062) RED CELL DISTRIBUTION WIDTH (BEAKER) (test 15.1 % 11.6-14.4 xnhx=735) PLATELET COUNT (BEAKER) (test nwdv=627) 282 K/CU MM 150-450 MEAN PLATELET VOLUME (BEAKER) (test essm=489) 10.3 fL 9.4-12.4 NUCLEATED RED BLOOD CELLS (BEAKER) (test 0 /100 WBC 0-0 bqsw=698) (CELLAVISION MANUAL DIFF)2018-06-21 12:54:00 Test Item Value Reference Range Comments NEUTROPHILS - REL (CELLAVISION)(BEAKER) (test 63 % hyjx=5159) LYMPHOCYTES - REL (CELLAVISION)(BEAKER) (test 10 % zpcj=3530) MONOCYTES - REL (CELLAVISION)(BEAKER) (test 8 % wccb=7840) EOSINOPHILS - REL (CELLAVISION)(BEAKER) (test 2 % rqho=9562) BASOPHILS - REL (CELLAVISION)(BEAKER) (test 2 % gtfd=3198) METAMYELOCYTES - REL (CELLAVISION)(BEAKER) (test 2 % 0-0 olzj=2861) BANDS - REL (CELLAVISION)(BEAKER) (test urcr=3791) 12 % 0-10 NEUTROPHILS - ABS (CELLAVISION)(BEAKER) (test 4.16 K/ul 1.78-5.38 ntgy=4813) LYMPHOCYTES - ABS (CELLAVISION)(BEAKER) (test 0.66 K/ul 1.32-3.57 lxsn=6139) MONOCYTES - ABS (CELLAVISION)(BEAKER) (test 0.53 K/uL 0.30-0.82 qlys=7495) EOSINOPHILS - ABS (CELLAVISION)(BEAKER) (test 0.13 K/uL 0.04-0.54 mxlf=3202) BASOPHILS - ABS (CELLAVISION)(BEAKER) (test 0.13 K/uL 0.01-0.08 hmjk=7719) METAMYELOCYTES - ABS (CELLAVISION)(BEAKER) (test 0.13 K/uL 0.00-0.00 tjfd=3424) BANDS - ABS (CELLAVISION)(BEAKER) (test oqdf=0521) 0.79 K/uL 0.00-0.80 TOTAL COUNTED (BEAKER) (test amci=9006) 100 WBC MORPHOLOGY (BEAKER) (test ened=923) Normal GIANT PLATELETS (BEAKER) (test bnyt=377) Present ANISOCYTOSIS (BEAKER) (test gsso=249) 1+ few ARTIFACT (CELLAVISION)(BEAKER) (test ujqw=6649) Present PLATELET CONCENTRATION (CELLAVISION)(BEAKER) (test Adequate wxeu=4730) Received comment: User comments: Slide comments:BASIC METABOLIC [id number] 06:44:00 Test Item Value Reference Range Comments SODIUM (BEAKER) (test 137 meq/L 136-145 mcbv=225) POTASSIUM (BEAKER) (test 4.0 meq/L 3.5-5.1 yilq=443) CHLORIDE (BEAKER) (test 102 meq/L 98-107 oqrp=325) CO2 (BEAKER) (test 27 meq/L 22-29 uayj=269) BLOOD UREA NITROGEN 9 mg/dL 7-21 (BEAKER) (test rxdt=008) CREATININE (BEAKER) (test 0.66 mg/dL 0.57-1.25 nrqq=781) GLUCOSE RANDOM (BEAKER) 99 mg/dL 70-105 (test zsrc=093) CALCIUM (BEAKER) (test 9.0 mg/dL 8.4-10.2 qvqu=124) EGFR (BEAKER) (test 129 mL/min/1.73 sq m ESTIMATED GFR IS NOT habz=8442) ACCURATE CREATININE CLEARANCE IN PREDICTING GLOMERULAR FILTRATION RATE. ESTIMATED GFR IS NOT APPLICABLE FOR DIALYSIS PATIENTS. BLOOD [id number] 12:01:00 Test Item Value Reference Range Comments CULTURE (BEAKER) (test jnhz=8841) No growth in 5 days CBC W/PLT COUNT & AUTO [id number] 11:06:00 Test Item Value Reference Range Comments WHITE BLOOD CELL COUNT (BEAKER) (test umbp=073) 6.7 K/ L 3.5-10.5 RED BLOOD CELL COUNT (BEAKER) (test hwau=308) 3.88 M/ L 4.63-6.08 HEMOGLOBIN (BEAKER) (test wyxs=162) 12.4 GM/DL 13.7-17.5 HEMATOCRIT (BEAKER) (test tabd=405) 36.8 % 40.1-51.0 MEAN CORPUSCULAR VOLUME (BEAKER) (test fsoe=296) 94.8 fL 79.0-92.2 MEAN CORPUSCULAR HEMOGLOBIN (BEAKER) (test 32.0 pg 25.7-32.2 jrxa=963) MEAN CORPUSCULAR HEMOGLOBIN CONC (BEAKER) (test 33.7 GM/DL 32.3-36.5 ugyn=752) RED CELL DISTRIBUTION WIDTH (BEAKER) (test 15.3 % 11.6-14.4 kdtq=054) PLATELET COUNT (BEAKER) (test lzty=113) 218 K/CU MM 150-450 MEAN PLATELET VOLUME (BEAKER) (test rqso=932) 10.5 fL 9.4-12.4 NUCLEATED RED BLOOD CELLS (BEAKER) (test 0 /100 WBC 0-0 xeri=958) (CELLAVISION MANUAL DIFF)2018-06-20 11:06:00 Test Item Value Reference Range Comments NEUTROPHILS - REL (CELLAVISION)(BEAKER) (test 77 % clie=8715) LYMPHOCYTES - REL (CELLAVISION)(BEAKER) (test 6 % rytd=1569) MONOCYTES - REL (CELLAVISION)(BEAKER) (test 3 % rzar=1608) EOSINOPHILS - REL (CELLAVISION)(BEAKER) (test 2 % kupk=4020) BANDS - REL (CELLAVISION)(BEAKER) (test pvpb=0124) 10 % 0-10 ATYPICAL LYMPHOCYTES - REL (CELLAVISION)(BEAKER) 2 % 0-0 (test qlaz=1294) NEUTROPHILS - ABS (CELLAVISION)(BEAKER) (test 5.16 K/ul 1.78-5.38 vvsy=7216) LYMPHOCYTES - ABS (CELLAVISION)(BEAKER) (test 0.40 K/ul 1.32-3.57 eopi=4133) MONOCYTES - ABS (CELLAVISION)(BEAKER) (test 0.20 K/uL 0.30-0.82 ixmo=5305) EOSINOPHILS - ABS (CELLAVISION)(BEAKER) (test 0.13 K/uL 0.04-0.54 vqod=2934) BANDS - ABS (CELLAVISION)(BEAKER) (test zmwf=2993) 0.67 K/uL 0.00-0.80 ATYPICAL LYMPHOCYTES - ABS (CELLAVISION)(BEAKER) 0.13 K/uL 0.00-0.00 (test bzse=5685) TOTAL COUNTED (BEAKER) (test wqcy=2451) 100 CLUMPED PLATELETS (BEAKER) (test pqee=406) Present SMUDGE CELLS (BEAKER) (test tpxp=3645) Present GIANT PLATELETS (BEAKER) (test bdvr=413) Present TOXIC GRANULATION (BEAKER) (test ucao=889) Present ANISOCYTOSIS (BEAKER) (test ttsr=568) 1+ few PLATELET CONCENTRATION (CELLAVISION)(BEAKER) (test Adequate ugpk=7713) Received comment: User comments: Slide comments:BASIC METABOLIC [id number] 08:11:00 Test Item Value Reference Range Comments SODIUM (BEAKER) (test 134 meq/L 136-145 qykh=796) POTASSIUM (BEAKER) (test 3.8 meq/L 3.5-5.1 cxgm=400) CHLORIDE (BEAKER) (test 97 meq/L 98-107 mojl=095) CO2 (BEAKER) (test 29 meq/L 22-29 xlhe=454) BLOOD UREA NITROGEN 8 mg/dL 7-21 (BEAKER) (test xecf=084) CREATININE (BEAKER) (test 0.65 mg/dL 0.57-1.25 tmij=022) GLUCOSE RANDOM (BEAKER) 93 mg/dL 70-105 (test stbw=959) CALCIUM (BEAKER) (test 9.0 mg/dL 8.4-10.2 psct=892) EGFR (BEAKER) (test 132 mL/min/1.73 sq m ESTIMATED GFR IS NOT jkyk=4723) ACCURATE CREATININE CLEARANCE IN PREDICTING GLOMERULAR FILTRATION RATE. ESTIMATED GFR IS NOT APPLICABLE FOR DIALYSIS PATIENTS. BLOOD [id number] 08:01:00 Test Item Value Reference Range Comments CULTURE (BEAKER) (test gcrd=1376) No growth in 5 days BLOOD [id number] 02:00:00 Test Item Value Reference Range Comments CULTURE (BEAKER) (test zrtw=1922) No growth in 5 days BLOOD [id number] 02:00:00 Test Item Value Reference Range Comments CULTURE (BEAKER) (test sfjp=1038) No growth in 5 days CBC W/PLT COUNT & AUTO [id number] 15:32:00 Test Item Value Reference Range Comments WHITE BLOOD CELL COUNT (BEAKER) (test tbnb=977) 6.4 K/ L 3.5-10.5 RED BLOOD CELL COUNT (BEAKER) (test ugfb=456) 4.16 M/ L 4.63-6.08 HEMOGLOBIN (BEAKER) (test fauf=999) 13.2 GM/DL 13.7-17.5 HEMATOCRIT (BEAKER) (test pkhc=071) 39.5 % 40.1-51.0 MEAN CORPUSCULAR VOLUME (BEAKER) (test cagz=878) 95.0 fL 79.0-92.2 MEAN CORPUSCULAR HEMOGLOBIN (BEAKER) (test 31.7 pg 25.7-32.2 gjmr=532) MEAN CORPUSCULAR HEMOGLOBIN CONC (BEAKER) (test 33.4 GM/DL 32.3-36.5 azjf=631) RED CELL DISTRIBUTION WIDTH (BEAKER) (test 15.7 % 11.6-14.4 wbvz=255) PLATELET COUNT (BEAKER) (test yrel=715) 148 K/CU MM 150-450 MEAN PLATELET VOLUME (BEAKER) (test qyyj=144) 10.7 fL 9.4-12.4 NUCLEATED RED BLOOD CELLS (BEAKER) (test 0 /100 WBC 0-0 hfpm=965) (CELLAVISION MANUAL DIFF)2018-06-19 15:32:00 Test Item Value Reference Range Comments NEUTROPHILS - REL (CELLAVISION)(BEAKER) (test 73 % wexb=8341) LYMPHOCYTES - REL (CELLAVISION)(BEAKER) (test 3 % vspv=7638) MONOCYTES - REL (CELLAVISION)(BEAKER) (test 3 % case=1419) METAMYELOCYTES - REL (CELLAVISION)(BEAKER) (test 2 % 0-0 qmjb=9525) MYELOCYTES - REL (CELLAVISION)(BEAKER) (test 1 % 0-0 tsrp=9731) BANDS - REL (CELLAVISION)(BEAKER) (test 16 % 0-10 tghr=7192) NEUTROPHILS - ABS (CELLAVISION)(BEAKER) (test 4.67 K/ul 1.78-5.38 zpcg=0059) LYMPHOCYTES - ABS (CELLAVISION)(BEAKER) (test 0.19 K/ul 1.32-3.57 blzq=5654) MONOCYTES - ABS (CELLAVISION)(BEAKER) (test 0.19 K/uL 0.30-0.82 cbhk=3876) METAMYELOCYTES - ABS (CELLAVISION)(BEAKER) (test 0.13 K/uL 0.00-0.00 fmmb=2271) MYELOCYTES-ABS (CELLAVISION)(BEAKER) (test 0.06 K/uL 0.00-0.00 zdmi=3094) BANDS - ABS (CELLAVISION)(BEAKER) (test 1.02 K/uL 0.00-0.80 xwfw=5333) TOTAL COUNTED (BEAKER) (test fogz=4042) 100 GIANT PLATELETS (BEAKER) (test kfhg=838) Present TOXIC GRANULATION (BEAKER) (test ugko=119) Present PLASMACYTOID LYMPHS(BEAKER) (test pseo=8521) Present POLYCHROMATOPHILLIC RBCS(BEAKER) (test kmoc=627) 1+ few ANISOCYTOSIS (BEAKER) (test jozw=643) 2+ moderate MICROCYTES (BEAKER) (test bpte=209) 2+ moderate POIKILOCYTES (BEAKER) (test feet=891) 1+ few SPHEROCYTES (BEAKER) (test tmto=393) 1+ few ARTIFACT (CELLAVISION)(BEAKER) (test mbkg=8625) Present HELMET CELLS (CELLAVISION)(BEAKER) (test 1+ few vpyf=8825) PLATELET CONCENTRATION (CELLAVISION)(BEAKER) Decreased (test gdxa=5375) Received comment: User comments: Slide comments:BASIC METABOLIC [id number] 07:38:00 Test Item Value Reference Range Comments SODIUM (BEAKER) (test 132 meq/L 136-145 zzkq=242) POTASSIUM (BEAKER) (test 3.5 meq/L 3.5-5.1 nyvc=656) CHLORIDE (BEAKER) (test 95 meq/L 98-107 kqqz=164) CO2 (BEAKER) (test 27 meq/L 22-29 ukoe=377) BLOOD UREA NITROGEN 11 mg/dL 7-21 (BEAKER) (test kwfx=387) CREATININE (BEAKER) (test 0.61 mg/dL 0.57-1.25 fdow=648) GLUCOSE RANDOM (BEAKER) 94 mg/dL 70-105 (test nanl=651) CALCIUM (BEAKER) (test 8.8 mg/dL 8.4-10.2 eddd=572) EGFR (BEAKER) (test 142 mL/min/1.73 sq m ESTIMATED GFR IS NOT bhgk=2201) ACCURATE CREATININE CLEARANCE IN PREDICTING GLOMERULAR FILTRATION RATE. ESTIMATED GFR IS NOT APPLICABLE FOR DIALYSIS PATIENTS. CBC W/PLT COUNT & AUTO [id number] 12:37:00 Test Item Value Reference Range Comments WHITE BLOOD CELL COUNT (BEAKER) (test nmkp=077) 8.5 K/ L 3.5-10.5 RED BLOOD CELL COUNT (BEAKER) (test jnjs=295) 4.16 M/ L 4.63-6.08 HEMOGLOBIN (BEAKER) (test kxnl=918) 13.0 GM/DL 13.7-17.5 HEMATOCRIT (BEAKER) (test mkpr=426) 38.5 % 40.1-51.0 MEAN CORPUSCULAR VOLUME (BEAKER) (test okby=202) 92.5 fL 79.0-92.2 MEAN CORPUSCULAR HEMOGLOBIN (BEAKER) (test 31.3 pg 25.7-32.2 cify=575) MEAN CORPUSCULAR HEMOGLOBIN CONC (BEAKER) (test 33.8 GM/DL 32.3-36.5 xhps=233) RED CELL DISTRIBUTION WIDTH (BEAKER) (test 15.2 % 11.6-14.4 yqvt=472) PLATELET COUNT (BEAKER) (test idbx=960) 145 K/CU MM 150-450 MEAN PLATELET VOLUME (BEAKER) (test tjah=512) 10.3 fL 9.4-12.4 NUCLEATED RED BLOOD CELLS (BEAKER) (test 0 /100 WBC 0-0 efoc=499) (CELLAVISION MANUAL DIFF)2018-06-18 12:37:00 Test Item Value Reference Range Comments NEUTROPHILS - REL (CELLAVISION)(BEAKER) (test 72 % cquc=7770) LYMPHOCYTES - REL (CELLAVISION)(BEAKER) (test 2 % kqzw=6567) BANDS - REL (CELLAVISION)(BEAKER) (test rmkv=0751) 25 % 0-10 ATYPICAL LYMPHOCYTES - REL (CELLAVISION)(BEAKER) 1 % 0-0 (test lwak=3505) NEUTROPHILS - ABS (CELLAVISION)(BEAKER) (test 6.12 K/ul 1.78-5.38 bwpt=0636) LYMPHOCYTES - ABS (CELLAVISION)(BEAKER) (test 0.17 K/ul 1.32-3.57 pmqs=6580) BANDS - ABS (CELLAVISION)(BEAKER) (test dszv=6314) 2.13 K/uL 0.00-0.80 ATYPICAL LYMPHOCYTES - ABS (CELLAVISION)(BEAKER) 0.09 K/uL 0.00-0.00 (test lqvl=3574) TOTAL COUNTED (BEAKER) (test fwvc=0441) 100 RBC MORPHOLOGY (BEAKER) (test osmf=841) Normal SMUDGE CELLS (BEAKER) (test etnt=8853) Present GIANT PLATELETS (BEAKER) (test ukkc=668) Present TOXIC GRANULATION (BEAKER) (test gcuc=644) Present PLATELET CONCENTRATION (CELLAVISION)(BEAKER) (test Decreased urnd=3363) Received comment: User comments: Slide comments:BASIC METABOLIC [id number] 12:04:00 Test Item Value Reference Range Comments SODIUM (BEAKER) (test 130 meq/L 136-145 wgxz=061) POTASSIUM (BEAKER) (test 3.1 meq/L 3.5-5.1 dkow=193) CHLORIDE (BEAKER) (test 93 meq/L 98-107 yxlx=069) CO2 (BEAKER) (test 27 meq/L 22-29 wnlc=926) BLOOD UREA NITROGEN < mg/dL 7-21 (BEAKER) (test fgen=209) CREATININE (BEAKER) (test 0.66 mg/dL 0.57-1.25 yhzj=206) GLUCOSE RANDOM (BEAKER) 157 mg/dL 70-105 (test aaay=484) CALCIUM (BEAKER) (test 8.6 mg/dL 8.4-10.2 lrhh=983) EGFR (BEAKER) (test 129 mL/min/1.73 sq m ESTIMATED GFR IS NOT fqyi=1802) ACCURATE CREATININE CLEARANCE IN PREDICTING GLOMERULAR FILTRATION RATE. ESTIMATED GFR IS NOT APPLICABLE FOR DIALYSIS PATIENTS. VANCOMYCIN LEVEL, [id number] 12:02:00 Test Item Value Reference Range Comments VANCOMYCIN RANDOM (BEAKER) (test dzbe=770) 1.3 ug/mL Reference Range: No [id number] 12:00:00 Test Item Value Reference Range Comments MAGNESIUM (BEAKER) (test rmxk=789) 2.2 mg/dL 1.6-2.6 SPUTUM CULTURE + GRAM [id number] 11:45:00 Test Item Value Reference Range Comments CULTURE (BEAKER) (test PSEUDOMONAS AERUGINOSA 4+ Pseudomonas trxm=7242) aeruginosa Amikacin (test code=1) Susceptible 0-16 , [...] CULTURE (BEAKER) (test PSEUDOMONAS AERUGINOSA 4+ Pseudomonas bkgq=7891) aeruginosa Amikacin (test code=1) Susceptible 0-16 , [...] GRAM STAIN RESULT 1+ WBCs (BEAKER) (test ycnb=8890) GRAM STAIN RESULT 15-20 epithelial cells (BEAKER) (test ocom=914451) GRAM STAIN RESULT <1+ gram negative (BEAKER) (test coccobacilli toxj=208778) GRAM STAIN RESULT <1+ gram positive (BEAKER) (test cocci in pairs pnns=859330) GRAM STAIN RESULT <1+ yeast with (BEAKER) (test pseudohyphae vvpv=815173) GRAM STAIN RESULT 1+ gram variable rods (BEAKER) (test smjd=070060) 1+ Normal respiratory maximo presentC W/PLT COUNT & AUTO [id number] 18:36:00 Test Item Value Reference Range Comments WHITE BLOOD CELL COUNT (BEAKER) (test qefp=475) 7.3 K/ L 3.5-10.5 RED BLOOD CELL COUNT (BEAKER) (test whbm=544) 4.53 M/ L 4.63-6.08 HEMOGLOBIN (BEAKER) (test odtt=241) 14.4 GM/DL 13.7-17.5 HEMATOCRIT (BEAKER) (test lmwp=279) 42.2 % 40.1-51.0 MEAN CORPUSCULAR VOLUME (BEAKER) (test bkfb=034) 93.2 fL 79.0-92.2 MEAN CORPUSCULAR HEMOGLOBIN (BEAKER) (test 31.8 pg 25.7-32.2 dxlf=074) MEAN CORPUSCULAR HEMOGLOBIN CONC (BEAKER) (test 34.1 GM/DL 32.3-36.5 gfhb=785) RED CELL DISTRIBUTION WIDTH (BEAKER) (test 15.0 % 11.6-14.4 gsuj=717) PLATELET COUNT (BEAKER) (test tgat=625) 170 K/CU MM 150-450 MEAN PLATELET VOLUME (BEAKER) (test ojln=324) 10.1 fL 9.4-12.4 NUCLEATED RED BLOOD CELLS (BEAKER) (test 0 /100 WBC 0-0 hosf=203) NEUTROPHILS RELATIVE PERCENT (BEAKER) (test 92 % qypx=355) LYMPHOCYTES RELATIVE PERCENT (BEAKER) (test 4 % zmxk=175) MONOCYTES RELATIVE PERCENT (BEAKER) (test 2 % mmmm=776) EOSINOPHILS RELATIVE PERCENT (BEAKER) (test 0 % ooit=767) BASOPHILS RELATIVE PERCENT (BEAKER) (test 0 % sfwn=445) NEUTROPHILS ABSOLUTE COUNT (BEAKER) (test 6.75 K/ L 1.78-5.38 tvih=088) LYMPHOCYTES ABSOLUTE COUNT (BEAKER) (test 0.27 K/ L 1.32-3.57 hlgn=962) MONOCYTES ABSOLUTE COUNT (BEAKER) (test 0.15 K/ L 0.30-0.82 vcgn=131) EOSINOPHILS ABSOLUTE COUNT (BEAKER) (test 0.00 K/ L 0.04-0.54 eldf=999) BASOPHILS ABSOLUTE COUNT (BEAKER) (test 0.02 K/ L 0.01-0.08 bcua=439) IMMATURE GRANULOCYTES-RELATIVE PERCENT (BEAKER) 2 % 0-1 (test leoh=7947) [id number] 14:37:00 Test Item Value Reference Range Comments PROCALCITONIN (BEAKER) (test fwlw=3539) 0.08 ng/mL <0.05 SEPSIS RISK (ng/mL)Low: 0.05-0.50Intermediate: 0.51-2.00High: & gt;=2.01LACTIC ACID, [id number] 13:43:00 Test Item Value Reference Range Comments LACTATE BLOOD VENOUS (2) 2.4 mmol/L 0.5-2.2 Specimen slightly hemolyzed (BEAKER) (test xqbm=3357) TISSUE [id number] 13:24:00Surgical Pathology Report Case: [id number] Authorizing Provider: Jennifer Fraire MD Collected: 06/09/2018 1735 Ordering Location: [address] Received: 06/10/2018 0811 Cardiovascular Pathologist: Jennifer [...] carcinoma is seen. Thebiopsy may not be apprenticeship representative of the entirelesion; Clinical correlation is recommended.20156; 89468; 51659Hxpgzrvnt mass Left subglottic massThe specimen is received in a fluidless container labeled with patient information and labeled "left supraglottic mass" consisting of four fragments of red soft tissue ranging from 0.1 to 0.4 cm, submitted entirely A1. CG/pl PERFORMEDThe interpretation of this case included the use of immunohistochemistry or special stains. p53 and AE1/LR6Ziwcphsufnmtutopogwb technical testing was performed at [facility] [place] Pathology [facility] where it was developed and [...] ESOPH, SWALLOW FUNCTION , WITH CINE OR [id number] 12:08:00Reason for exam:->silent aspiration evaluationFINAL REPORT Modified [...] MDReport Verified Date/Time: 06/17/2018 12:08:38 Reading Location: [address] Reading Room [id number] 09:44:00 Test Item Value Reference Range Comments MAGNESIUM (BEAKER) (test zbxg=059) 1.9 mg/dL 1.6-2.6 [id number] 09:44:00 Test Item Value Reference Range Comments PHOSPHORUS (BEAKER) (test uejm=365) 2.9 mg/dL 2.3-4.7 RAD, CHEST, 1 VIEW, NON [id number] 08:16:00Reason for exam:->SOBShould this be performed at [...] MDReport Verified Date/Time: 06/17/2018 08:16:46 Reading Location: [facility] Radiology Reading Room BASIC METABOLIC [id number] 06:25:00 Test Item Value Reference Range Comments SODIUM (BEAKER) (test 134 meq/L 136-145 beik=078) POTASSIUM (BEAKER) (test 3.7 meq/L 3.5-5.1 zaym=214) CHLORIDE (BEAKER) (test 95 meq/L 98-107 jwcq=389) CO2 (BEAKER) (test 31 meq/L 22-29 cvix=128) BLOOD UREA NITROGEN 15 mg/dL 7-21 (BEAKER) (test glbw=981) CREATININE (BEAKER) (test 0.77 mg/dL 0.57-1.25 hbrg=914) GLUCOSE RANDOM (BEAKER) 89 mg/dL 70-105 (test yynh=498) CALCIUM (BEAKER) (test 8.9 mg/dL 8.4-10.2 pgtn=522) EGFR (BEAKER) (test 108 mL/min/1.73 sq m ESTIMATED GFR IS NOT yzop=6838) ACCURATE CREATININE CLEARANCE IN PREDICTING GLOMERULAR FILTRATION RATE. ESTIMATED GFR IS NOT APPLICABLE FOR DIALYSIS PATIENTS. VANCOMYCIN LEVEL, [id number] 06:25:00 Test Item Value Reference Range Comments VANCOMYCIN RANDOM (BEAKER) (test ybcd=368) 9.6 ug/mL Reference Range: No NormalsDraw 30 min prior to scheduled dose, HOLD if level & gt; 20 mcg/mL, informMD.RESPIRATORY PANEL [id number] 12:23:00 Test Item Value Reference Range Comments HUMAN METAPNEUMOVIRUS Not detected Not detected, (BEAKER) (test ixwm=9203) Equivocal RHINOVIRUS (BEAKER) (test Not detected Not detected, vjqb=6132) Equivocal INFLUENZA A (BEAKER) (test Not detected Not detected, ikoa=7711) Equivocal INFLUENZA A (NO SUBTYPE) Not detected, (test ounl=2271) Equivocal INFLUENZA A SUBTYPE H1 Not detected, (BEAKER) (test xuda=3432) Equivocal INFLUENZA A SUBTYPE H3 Not detected, (BEAKER) (test jhom=3432) Equivocal INFLUENZA A SUBTYPE H1-2009 Not detected, (BEAKER) (test tnkb=8611) Equivocal INFLUENZA B (BEAKER) (test Not detected Not detected, cimq=8628) Equivocal RESPIRATORY SYNCYTIAL VIRUS Not detected Not detected, (BEAKER) (test lkfe=5294) Equivocal PARAINFLUENZA VIRUS 1 Not detected Not detected, (BEAKER) (test rwzf=3702) Equivocal PARAINFLUENZA VIRUS 2 Not detected Not detected, (BEAKER) (test ulbd=3711) Equivocal PARAINFLUENZA VIRUS 3 Not detected Not detected, (BEAKER) (test jxvh=8966) Equivocal PARAINFLUENZA VIRUS 4 Not detected Not detected, (BEAKER) (test kioi=7881) Equivocal ADENOVIRUS (BEAKER) (test Not detected Not detected, yevt=0559) Equivocal CORONAVIRUS 229E (BEAKER) Detected Not detected, Droplet isolation. (test ugkz=4897) Equivocal Consider stopping antibiotics. CORONAVIRUS HKU1 (BEAKER) Not detected Not detected, (test fojd=0157) Equivocal CORONAVIRUS NL63 (BEAKER) Not detected Not detected, (test kseq=9303) Equivocal CORONAVIRUS OC43 (BEAKER) Not detected Not detected, (test alen=3867) Equivocal BORDETELLA PERTUSSIS (BEAKER) Not detected Not detected, (test qclr=8073) Equivocal CHLAMYDOPHILA PNEUMONIAE Not detected Not detected, (BEAKER) (test untc=3546) Equivocal MYCOPLASMA PNEUMONIAE Not detected Not detected, (BEAKER) (test dobn=6923) Equivocal Other viruses and bacteria not targeted [...] [facility] using the Open EnglishArray Respiratory Panel. It is FDA cleared and has been verified and approved by the [facility] Molecular Diagnostics Laboratory for clinical use on nasal swab specimens. It is not FDA-cleared for use on bronchial wash/lavage samples. However, for this sample type, validation was performed and test characteristics were determined and approved, by [facility] / ?.?? Diagnostics laboratory for clinical use under the Clinical Laboratory Improvement Amendments (CLIA) of 1988 requirements. Therefore, FDA clearance isnot required. This laboratory is CLIA-certified and [employer] ([employer])-accredited to perform high complexity testing.CBC W/PLT COUNT & AUTO [id number] 11:27:00 Test Item Value Reference Range Comments WHITE BLOOD CELL COUNT (BEAKER) (test hqtb=851) 10.5 K/ L 3.5-10.5 RED BLOOD CELL COUNT (BEAKER) (test gndl=225) 4.20 M/ L 4.63-6.08 HEMOGLOBIN (BEAKER) (test vudi=920) 13.6 GM/DL 13.7-17.5 HEMATOCRIT (BEAKER) (test pqdz=062) 40.5 % 40.1-51.0 MEAN CORPUSCULAR VOLUME (BEAKER) (test rjrr=118) 96.4 fL 79.0-92.2 MEAN CORPUSCULAR HEMOGLOBIN (BEAKER) (test 32.4 pg 25.7-32.2 yqkj=611) MEAN CORPUSCULAR HEMOGLOBIN CONC (BEAKER) (test 33.6 GM/DL 32.3-36.5 ephq=233) RED CELL DISTRIBUTION WIDTH (BEAKER) (test 15.1 % 11.6-14.4 xwpq=910) PLATELET COUNT (BEAKER) (test nawl=202) 142 K/CU MM 150-450 MEAN PLATELET VOLUME (BEAKER) (test dxdh=640) 10.3 fL 9.4-12.4 NUCLEATED RED BLOOD CELLS (BEAKER) (test 0 /100 WBC 0-0 pznp=371) (CELLAVISION MANUAL DIFF)2018-06-16 11:27:00 Test Item Value Reference Range Comments NEUTROPHILS - REL (CELLAVISION)(BEAKER) (test 51 % oqbu=3780) LYMPHOCYTES - REL (CELLAVISION)(BEAKER) (test 1 % nwje=7999) MONOCYTES - REL (CELLAVISION)(BEAKER) (test 2 % lrvs=4496) MYELOCYTES - REL (CELLAVISION)(BEAKER) (test 1 % 0-0 djly=0913) PROMYELOCYTES - REL (CELLAVSION)(BEAKER) (test 1 % 0-0 uyjr=6025) BANDS - REL (CELLAVISION)(BEAKER) (test 44 % 0-10 xxmu=4525) NEUTROPHILS - ABS (CELLAVISION)(BEAKER) (test 5.36 K/ul 1.78-5.38 eunl=3815) LYMPHOCYTES - ABS (CELLAVISION)(BEAKER) (test 0.11 K/ul 1.32-3.57 xdyi=2580) MONOCYTES - ABS (CELLAVISION)(BEAKER) (test 0.21 K/uL 0.30-0.82 kkht=2432) MYELOCYTES-ABS (CELLAVISION)(BEAKER) (test 0.11 K/uL 0.00-0.00 mrew=7280) PROMYELOCYTES - ABS (CELLAVISION)(BEAKER) (test 0.11 K/uL 0.00-0.00 cacy=4138) BANDS - ABS (CELLAVISION)(BEAKER) (test 4.62 K/uL 0.00-0.80 xcza=7869) TOTAL COUNTED (BEAKER) (test nuvw=9793) 100 MANUAL NRBC PER 100 CELLS (BEAKER) (test 1 /100 WBC 0-0 xkwu=7177) SMUDGE CELLS (BEAKER) (test jhis=0849) Present GIANT PLATELETS (BEAKER) (test bfzg=987) Present POLYCHROMATOPHILLIC RBCS(BEAKER) (test psbg=195) 1+ few ANISOCYTOSIS (BEAKER) (test yzco=960) 1+ few MICROCYTES (BEAKER) (test pcsu=238) 1+ few POIKILOCYTES (BEAKER) (test lgha=932) 1+ few ARTIFACT (CELLAVISION)(BEAKER) (test scuh=2046) Present PLATELET CONCENTRATION (CELLAVISION)(BEAKER) Adequate (test xxwv=2442) Received comment: User comments: Slide comments:CT, CHEST WITH IV CONTRAST- PE TEST [id number] 09:53:00Worsening hypoxia s/o diagnosis and excision of [...] MDReport Verified Date/Time: 06/16/2018 09:53:01 Reading Location: [facility] Diagnostic Imaging Reading Room - [place] [address] RAD, CHEST, 1 VIEW, NON [id number] 07:36:00Reason for exam:->recent pneumothorax, new trachShould [...] MDReport Verified Date/Time: 06/16/2018 07:36:27 Reading Location: [facility] Radiology Reading Room 07: 36 AMBASIC METABOLIC [id number] 05:45:00 Test Item Value Reference Range Comments SODIUM (BEAKER) (test 132 meq/L 136-145 mxgp=661) POTASSIUM (BEAKER) (test 3.9 meq/L 3.5-5.1 luxs=907) CHLORIDE (BEAKER) (test 92 meq/L 98-107 ekcx=903) CO2 (BEAKER) (test 27 meq/L 22-29 zcss=137) BLOOD UREA NITROGEN 13 mg/dL 7-21 (BEAKER) (test gezj=249) CREATININE (BEAKER) (test 0.83 mg/dL 0.57-1.25 wfxj=337) GLUCOSE RANDOM (BEAKER) 129 mg/dL 70-105 (test ehdc=500) CALCIUM (BEAKER) (test 9.5 mg/dL 8.4-10.2 biut=794) EGFR (BEAKER) (test 99 mL/min/1.73 sq m ESTIMATED GFR IS NOT skxd=0736) ACCURATE CREATININE CLEARANCE IN PREDICTING GLOMERULAR FILTRATION RATE. ESTIMATED GFR IS NOT APPLICABLE FOR DIALYSIS PATIENTS. [id number] 18:12:00 Test Item Value Reference Range Comments MAGNESIUM (BEAKER) (test 2.0 mg/dL 1.6-2.6 Specimen slightly hemolyzed guge=610) BASIC METABOLIC [id number] 18:12:00 Test Item Value Reference Range Comments SODIUM (BEAKER) (test 130 meq/L 136-145 myuw=518) POTASSIUM (BEAKER) (test 3.7 meq/L 3.5-5.1 Specimen slightly oobp=205) hemolyzed CHLORIDE (BEAKER) (test 91 meq/L 98-107 lvqg=262) CO2 (BEAKER) (test 27 meq/L 22-29 anwr=619) BLOOD UREA NITROGEN 14 mg/dL 7-21 (BEAKER) (test wtbd=618) CREATININE (BEAKER) (test 0.78 mg/dL 0.57-1.25 Specimen slightly ohmr=288) hemolyzed GLUCOSE RANDOM (BEAKER) 85 mg/dL 70-105 (test eccj=608) CALCIUM (BEAKER) (test 8.9 mg/dL 8.4-10.2 rakj=719) EGFR (BEAKER) (test 107 mL/min/1.73 sq m ESTIMATED GFR IS NOT ugie=2605) ACCURATE CREATININE CLEARANCE IN PREDICTING GLOMERULAR FILTRATION RATE. ESTIMATED GFR IS NOT APPLICABLE FOR DIALYSIS PATIENTS. RAD, CHEST, 1 VIEW, NON [id number] 13:18:00Reason for exam:->recent pneumothorax, new trachShould this [...] MCGARRYepfarzaneh Verified Date/Time: 06/15/2018 13:18:45 Reading Location: [address] Neuro Reading Room BLOOD GAS, [id number] 11:41:00 Test Item Value Reference Range Comments PH ARTERIAL (BEAKER) (test tlbr=896) 7.50 7.35-7.45 PCO2 ARTERIAL (BEAKER) (test sjwy=404) 40 mmHg 35-45 PO2 ARTERIAL (BEAKER) (test tker=959) 335 mmHg 80-90 O2 SATURATION ARTERIAL (BEAKER) (test ifxy=228) 99.8 % 96.0-97.0 HCO3 ARTERIAL (BEAKER) (test yzjp=816) 29 mmol/L 21-29 BASE EXCESS ARTERIAL (BEAKER) (test xewe=182) 6.5 mmol/L -2.0-3.0 PATIENT TEMPERATURE (BEAKER) (test dgxi=4972) 39.3 C FIO2 (BEAKER) (test mjix=8831) 100.0 % Obtain one hour post initaition of vent support \\[id number]\\[id number] [id number] 09: 49:00 Test Item Value Reference Range Comments TROPONIN I (BEAKER) (test ibjd=127) < ng/mL 0.00-0.03 Troponin I (TnI) levels [...] Range Comments B-TYPE NATRIURETIC PEPTIDE (BEAKER) (test rcgv=496) 66 pg/mL 0-100 [id number] 09:29:00 Test Item Value Reference Range Comments D-DIMER QUANTITATIVE (BEAKER) (test eftn=570) 1.59 MG/L FEU <0.50 Intended Use: The D-Dimer Assay can be used to aid in the diagnosis of Deep Vein Thrombosis (DVT) and Pulmonary Embolism Disease (PED).In patients with low pre-test probability, various studies concerning STA Liatest D-dimer test have reported that with a cutoff value of 0.50 MG/L FEU, the Negative Predictive Value (NPV) regarding the exclusion of thrombosis is within 95-100% range.[id number] 09:12:00 Test Item Value Reference Range Comments FIBRINOGEN LEVEL (BEAKER) (test jqnl=672) 621 mg/dl 225-434 [id number] 09:10:00 Test Item Value Reference Range Comments PHOSPHORUS (BEAKER) (test itrs=072) 2.8 mg/dL 2.3-4.7 [id number] 09:10:00 Test Item Value Reference Range Comments MAGNESIUM (BEAKER) (test hjxp=001) 1.9 mg/dL 1.6-2.6 COMPREHENSIVE METABOLIC [id number] 09:10:00 Test Item Value Reference Range Comments TOTAL PROTEIN (BEAKER) 5.9 gm/dL 6.0-8.3 (test hcuo=885) ALBUMIN (BEAKER) (test 3.3 g/dL 3.5-5.0 jsub=7670) ALKALINE PHOSPHATASE 73 U/L 40-150 (BEAKER) (test xnbi=918) BILIRUBIN TOTAL (BEAKER) 1.3 mg/dL 0.2-1.2 (test wdpt=342) SODIUM (BEAKER) (test 127 meq/L 136-145 ynra=995) POTASSIUM (BEAKER) (test 3.8 meq/L 3.5-5.1 swxc=816) CHLORIDE (BEAKER) (test 89 meq/L 98-107 kbzx=512) CO2 (BEAKER) (test 28 meq/L 22-29 pted=401) BLOOD UREA NITROGEN 14 mg/dL 7-21 (BEAKER) (test eeen=630) CREATININE (BEAKER) (test 0.78 mg/dL 0.57-1.25 nnmk=801) GLUCOSE RANDOM (BEAKER) 87 mg/dL 70-105 (test ivvx=524) CALCIUM (BEAKER) (test 8.8 mg/dL 8.4-10.2 dubc=732) AST (SGOT) (BEAKER) (test 23 U/L 5-34 ritg=461) ALT (SGPT) (BEAKER) (test 26 U/L 6-55 trsi=562) EGFR (BEAKER) (test 107 mL/min/1.73 sq ESTIMATED GFR IS NOT apoe=0693) m ACCURATE CREATININE CLEARANCE IN PREDICTING GLOMERULAR FILTRATION RATE. ESTIMATED GFR IS NOT APPLICABLE FOR DIALYSIS PATIENTS. [id number] 09:01:00 Test Item Value Reference Range Comments PROTIME (BEAKER) (test rykr=246) 15.2 seconds 11.7-14.7 INR (BEAKER) (test dbty=455) 1.2 <=5.9 PARTIAL THROMBOPLASTIN TIME (BEAKER) (test 31.6 seconds 22.5-36.0 aycd=714) RECOMMENDED COUMADIN/WARFARIN INR THERAPY RANGESSTANDARD DOSE: 2.0 - 3.0 Includes: PROPHYLAXIS forvenous thrombosis, systemic embolization; TREATMENT for venous thrombosis and/or pulmonary embolus.HIGH RISK: Target INR is 2.5-3.5 for patients with mechanical heart valves.LACTIC ACID, [id number] 08:51: 00 Test Item Value Reference Range Comments LACTATE BLOOD ARTERIAL (2) 0.8 mmol/L 0.5-2.2 Specimen slightly hemolyzed (BEAKER) (test oolc=3020) BLOOD GAS, [id number] 08:40:00 Test Item Value Reference Range Comments PH ARTERIAL (BEAKER) (test efsv=324) 7.51 7.35-7.45 PCO2 ARTERIAL (BEAKER) (test svpf=789) 40 mmHg 35-45 PO2 ARTERIAL (BEAKER) (test sdns=848) 58 mmHg 80-90 O2 SATURATION ARTERIAL (BEAKER) (test yaqn=793) 90.0 % 96.0-97.0 HCO3 ARTERIAL (BEAKER) (test qigv=203) 31 mmol/L 21-29 BASE EXCESS ARTERIAL (BEAKER) (test xjrm=558) 8.3 mmol/L -2.0-3.0 PATIENT TEMPERATURE (BEAKER) (test klcl=8998) 39.1 C FIO2 (BEAKER) (test owad=3979) 80.0 % [id number] 08:00:00 Test Item Value Reference Range Comments MAGNESIUM (BEAKER) (test fmhz=508) 1.8 mg/dL 1.6-2.6 Add onCBC W/PLT COUNT & AUTO [id number] 06:45:00 Test Item Value Reference Range Comments WHITE BLOOD CELL COUNT (BEAKER) (test ugbm=936) 10.2 K/ L 3.5-10.5 RED BLOOD CELL COUNT (BEAKER) (test ihky=921) 4.12 M/ L 4.63-6.08 HEMOGLOBIN (BEAKER) (test dbwm=977) 13.2 GM/DL 13.7-17.5 HEMATOCRIT (BEAKER) (test fktg=522) 40.8 % 40.1-51.0 MEAN CORPUSCULAR VOLUME (BEAKER) (test xpju=167) 99.0 fL 79.0-92.2 MEAN CORPUSCULAR HEMOGLOBIN (BEAKER) (test 32.0 pg 25.7-32.2 duge=080) MEAN CORPUSCULAR HEMOGLOBIN CONC (BEAKER) (test 32.4 GM/DL 32.3-36.5 myoh=939) RED CELL DISTRIBUTION WIDTH (BEAKER) (test 15.2 % 11.6-14.4 lnjs=547) PLATELET COUNT (BEAKER) (test pezw=545) 146 K/CU MM 150-450 MEAN PLATELET VOLUME (BEAKER) (test yqrv=802) 9.9 fL 9.4-12.4 NUCLEATED RED BLOOD CELLS (BEAKER) (test 0 /100 WBC 0-0 tsoh=600) NEUTROPHILS RELATIVE PERCENT (BEAKER) (test 92 % sadb=586) LYMPHOCYTES RELATIVE PERCENT (BEAKER) (test 3 % gfko=666) MONOCYTES RELATIVE PERCENT (BEAKER) (test 2 % akab=959) EOSINOPHILS RELATIVE PERCENT (BEAKER) (test 0 % tcbj=380) BASOPHILS RELATIVE PERCENT (BEAKER) (test 0 % ohdl=900) NEUTROPHILS ABSOLUTE COUNT (BEAKER) (test 9.38 K/ L 1.78-5.38 upjz=065) LYMPHOCYTES ABSOLUTE COUNT (BEAKER) (test 0.30 K/ L 1.32-3.57 eryw=553) MONOCYTES ABSOLUTE COUNT (BEAKER) (test 0.23 K/ L 0.30-0.82 yiul=869) EOSINOPHILS ABSOLUTE COUNT (BEAKER) (test 0.00 K/ L 0.04-0.54 fbva=723) BASOPHILS ABSOLUTE COUNT (BEAKER) (test 0.03 K/ L 0.01-0.08 xoim=487) IMMATURE GRANULOCYTES-RELATIVE PERCENT (BEAKER) 3 % 0-1 (test gogv=6200) BASIC METABOLIC [id number] 06:35:00 Test Item Value Reference Range Comments SODIUM (BEAKER) (test 127 meq/L 136-145 ekgr=298) POTASSIUM (BEAKER) (test 3.8 meq/L 3.5-5.1 ehgp=745) CHLORIDE (BEAKER) (test 91 meq/L 98-107 utak=454) CO2 (BEAKER) (test 27 meq/L 22-29 tqok=939) BLOOD UREA NITROGEN 12 mg/dL 7-21 (BEAKER) (test wnoy=061) CREATININE (BEAKER) (test 0.75 mg/dL 0.57-1.25 bhev=368) GLUCOSE RANDOM (BEAKER) 88 mg/dL 70-105 (test kpda=435) CALCIUM (BEAKER) (test 8.6 mg/dL 8.4-10.2 xjvr=295) EGFR (BEAKER) (test 112 mL/min/1.73 sq m ESTIMATED GFR IS NOT bodn=8446) ACCURATE CREATININE CLEARANCE IN PREDICTING GLOMERULAR FILTRATION RATE. ESTIMATED GFR IS NOT APPLICABLE FOR DIALYSIS PATIENTS. RAD, CHEST, 1 VIEW, NON [id number] 05:10:00Reason for exam:->sob, tachypneaShould this be performed [...] Carrillo Verified Date/Time: 06/15/2018 05:10:33 Reading Location: [address] Reading Room POCT-LACTIC ACID, [id number] 04:30:00 Test Item Value Reference Range Comments POC-LACTIC ACID, VENOUS 1.1 mmol/L 0.9-1.7 TESTED AT [facility] [address] [facility] (BEAKER) (test koav=9828) [facility] [address] URINALYSIS W/ REFLEX URINE [id number] 20:03:00 Test Item Value Reference Range Comments COLOR (BEAKER) (test jymc=926) Light Yellow CLARITY (BEAKER) (test wmms=330) Hazy SPECIFIC GRAVITY UA (BEAKER) (test oqqz=760) 1.014 1.001-1.035 PH UA (BEAKER) (test xsax=053) 7.5 5.0-8.0 PROTEIN UA (BEAKER) (test idcn=311) Negative Negative GLUCOSE UA (BEAKER) (test lmdg=136) Negative Negative KETONES UA (BEAKER) (test fosa=516) Negative Negative BILIRUBIN UA (BEAKER) (test lxlq=826) Negative Negative BLOOD UA (BEAKER) (test vpse=101) Negative Negative NITRITE UA (BEAKER) (test sbfd=489) Negative Negative LEUKOCYTE ESTERASE UA (BEAKER) (test qfka=132) Negative Negative UROBILINOGEN UA (BEAKER) (test gkxu=845) 0.2 mg/dL 0.2-1.0 RBC UA (BEAKER) (test rrwe=416) 0 /HPF WBC UA (BEAKER) (test qgfj=382) 0 /HPF BACTERIA (BEAKER) (test dpsi=390) Few MUCUS (BEAKER) (test zxqx=3796) Rare HYALINE CASTS (BEAKER) (test hgnb=069) 3 /LPF SOURCE(BEAKER) (test gpdn=4505) RAD, CHEST, 1 VIEW, NON [id number] 19:10:00Reason for exam:->SUSUPECTED INFECTIONShould this be performed [...] Verified Date/Time: 06/14/2018 19:10: 10 Reading Location: [address] Reading Room CBC W/PLT COUNT & AUTO [id number] 04:36:00 Test Item Value Reference Range Comments WHITE BLOOD CELL COUNT (BEAKER) (test nwar=787) 11.4 K/ L 3.5-10.5 RED BLOOD CELL COUNT (BEAKER) (test iuas=756) 4.37 M/ L 4.63-6.08 HEMOGLOBIN (BEAKER) (test yrkd=817) 14.1 GM/DL 13.7-17.5 HEMATOCRIT (BEAKER) (test bdtx=563) 44.0 % 40.1-51.0 MEAN CORPUSCULAR VOLUME (BEAKER) (test lgjd=442) 100.7 fL 79.0-92.2 MEAN CORPUSCULAR HEMOGLOBIN (BEAKER) (test 32.3 pg 25.7-32.2 hojz=199) MEAN CORPUSCULAR HEMOGLOBIN CONC (BEAKER) (test 32.0 GM/DL 32.3-36.5 zpxz=129) RED CELL DISTRIBUTION WIDTH (BEAKER) (test 14.4 % 11.6-14.4 fyvs=413) PLATELET COUNT (BEAKER) (test ytqs=958) 188 K/CU MM 150-450 MEAN PLATELET VOLUME (BEAKER) (test acdf=107) 10.7 fL 9.4-12.4 NUCLEATED RED BLOOD CELLS (BEAKER) (test 0 /100 WBC 0-0 syua=269) NEUTROPHILS RELATIVE PERCENT (BEAKER) (test 95 % deso=699) LYMPHOCYTES RELATIVE PERCENT (BEAKER) (test 1 % paqs=280) MONOCYTES RELATIVE PERCENT (BEAKER) (test 2 % chso=137) EOSINOPHILS RELATIVE PERCENT (BEAKER) (test 0 % ajrj=381) BASOPHILS RELATIVE PERCENT (BEAKER) (test 0 % aqwv=061) NEUTROPHILS ABSOLUTE COUNT (BEAKER) (test 10.81 K/ L 1.78-5.38 aucv=831) LYMPHOCYTES ABSOLUTE COUNT (BEAKER) (test 0.16 K/ L 1.32-3.57 cxei=010) MONOCYTES ABSOLUTE COUNT (BEAKER) (test 0.26 K/ L 0.30-0.82 kehu=466) EOSINOPHILS ABSOLUTE COUNT (BEAKER) (test 0.00 K/ L 0.04-0.54 elsc=925) BASOPHILS ABSOLUTE COUNT (BEAKER) (test 0.03 K/ L 0.01-0.08 yayh=214) IMMATURE GRANULOCYTES-RELATIVE PERCENT (BEAKER) 2 % 0-1 (test bqcb=1125) RAD, CHEST, 1 VIEW, NON [id number] 04:13:00Reason for exam:->recent pneumothorax, new trachShould this [...] Verified Date/ Time: 06/14/2018 04:13:50 Reading Location: [address] Transitional Reading Room BLOOD GAS, [id number] 01:01:00 Test Item Value Reference Range Comments PH ARTERIAL (BEAKER) (test zxxv=059) 7.45 7.35-7.45 PCO2 ARTERIAL (BEAKER) (test qgqr=305) 41 mmHg 35-45 PO2 ARTERIAL (BEAKER) (test muhl=015) 109 mmHg 80-90 O2 SATURATION ARTERIAL (BEAKER) (test tahi=465) 98.2 % 96.0-97.0 HCO3 ARTERIAL (BEAKER) (test wocv=629) 28 mmol/L 21-29 BASE EXCESS ARTERIAL (BEAKER) (test vtzg=456) 3.4 mmol/L -2.0-3.0 PATIENT TEMPERATURE (BEAKER) (test tyeg=9572) 36.7 C FIO2 (BEAKER) (test ljbi=8829) 40.0 % POCT-GLUCOSE [id number] 05:32:00 Test Item Value Reference Range Comments POC-GLUCOSE METER (BEAKER) 92 mg/dL 70-110 TESTED AT [address] (test zenj=9968) [facility] [address] RAD, CHEST, 1 VIEW, NON [id number] 05:03:00Reason for exam:->evaluate for pneumo r/t CTShould [...] Verified Date/ Time: 06/13/2018 05:03:31 Reading Location: [address] Transitional Reading Room [id number] 04:22:00 Test Item Value Reference Range Comments PARTIAL THROMBOPLASTIN TIME (BEAKER) (test 27.4 seconds 22.5-36.0 hixu=012) PROTHROMBIN [id number] 04:21:00 Test Item Value Reference Range Comments PROTIME (BEAKER) (test ucwz=773) 13.8 seconds 11.7-14.7 INR (BEAKER) (test kavl=289) 1.1 <=5.9 RECOMMENDED COUMADIN/WARFARIN INR THERAPY RANGESSTANDARD DOSE: 2.0 - 3.0 Includes: PROPHYLAXIS forvenous thrombosis, systemic embolization; TREATMENT for venous thrombosis and/or pulmonary embolus.HIGH RISK: Target INR is 2.5-3.5 for patients with mechanical heart valves.[id number] 04:20:00 Test Item Value Reference Range Comments PHOSPHORUS (BEAKER) (test fbos=252) 3.1 mg/dL 2.3-4.7 [id number] 04:20:00 Test Item Value Reference Range Comments MAGNESIUM (BEAKER) (test ecjj=048) 2.0 mg/dL 1.6-2.6 BASIC METABOLIC [id number] 04:20:00 Test Item Value Reference Range Comments SODIUM (BEAKER) (test 140 meq/L 136-145 fpjw=110) POTASSIUM (BEAKER) (test 3.7 meq/L 3.5-5.1 tppx=728) CHLORIDE (BEAKER) (test 101 meq/L 98-107 eqgc=184) CO2 (BEAKER) (test 30 meq/L 22-29 klml=732) BLOOD UREA NITROGEN 13 mg/dL 7-21 (BEAKER) (test gwke=149) CREATININE (BEAKER) (test 0.74 mg/dL 0.57-1.25 nbbl=133) GLUCOSE RANDOM (BEAKER) 97 mg/dL 70-105 (test aqiu=165) CALCIUM (BEAKER) (test 9.2 mg/dL 8.4-10.2 uutf=260) EGFR (BEAKER) (test 113 mL/min/1.73 sq m ESTIMATED GFR IS NOT ousr=3549) ACCURATE CREATININE CLEARANCE IN PREDICTING GLOMERULAR FILTRATION RATE. ESTIMATED GFR IS NOT APPLICABLE FOR DIALYSIS PATIENTS. CBC W/PLT COUNT & AUTO [id number] 04:14:00 Test Item Value Reference Range Comments WHITE BLOOD CELL COUNT (BEAKER) (test yxxa=217) 11.6 K/ L 3.5-10.5 RED BLOOD CELL COUNT (BEAKER) (test waii=909) 4.30 M/ L 4.63-6.08 HEMOGLOBIN (BEAKER) (test eckq=746) 13.9 GM/DL 13.7-17.5 HEMATOCRIT (BEAKER) (test efgw=929) 43.3 % 40.1-51.0 MEAN CORPUSCULAR VOLUME (BEAKER) (test tfez=506) 100.7 fL 79.0-92.2 MEAN CORPUSCULAR HEMOGLOBIN (BEAKER) (test 32.3 pg 25.7-32.2 zhyt=771) MEAN CORPUSCULAR HEMOGLOBIN CONC (BEAKER) (test 32.1 GM/DL 32.3-36.5 lbcn=922) RED CELL DISTRIBUTION WIDTH (BEAKER) (test 14.1 % 11.6-14.4 fqtu=239) PLATELET COUNT (BEAKER) (test edsy=408) 182 K/CU MM 150-450 MEAN PLATELET VOLUME (BEAKER) (test gwgg=924) 10.7 fL 9.4-12.4 NUCLEATED RED BLOOD CELLS (BEAKER) (test 0 /100 WBC 0-0 ycum=901) NEUTROPHILS RELATIVE PERCENT (BEAKER) (test 89 % mwma=711) LYMPHOCYTES RELATIVE PERCENT (BEAKER) (test 3 % pzzk=410) MONOCYTES RELATIVE PERCENT (BEAKER) (test 6 % qbtq=875) EOSINOPHILS RELATIVE PERCENT (BEAKER) (test 0 % crey=345) BASOPHILS RELATIVE PERCENT (BEAKER) (test 0 % jkfi=060) NEUTROPHILS ABSOLUTE COUNT (BEAKER) (test 10.26 K/ L 1.78-5.38 hoyw=264) LYMPHOCYTES ABSOLUTE COUNT (BEAKER) (test 0.39 K/ L 1.32-3.57 bhks=615) MONOCYTES ABSOLUTE COUNT (BEAKER) (test 0.74 K/ L 0.30-0.82 kcjm=068) EOSINOPHILS ABSOLUTE COUNT (BEAKER) (test 0.02 K/ L 0.04-0.54 tpov=848) BASOPHILS ABSOLUTE COUNT (BEAKER) (test 0.03 K/ L 0.01-0.08 jdjh=805) IMMATURE GRANULOCYTES-RELATIVE PERCENT (BEAKER) 1 % 0-1 (test xtjd=6431) POCT-GLUCOSE [id number] 00:14:00 Test Item Value Reference Range Comments POC-GLUCOSE METER (BEAKER) 126 mg/dL 70-110 TESTED AT [address] (test lqhf=9675) [facility] [address] RAD, CHEST, 1 VIEW, NON [id number] 12:29:00Reason for exam:->s/p[ L thoracocentesisFINAL REPORT CLINICAL HISTORY: s/p[ L thoracocentesis TECHNIQUE: 1 view of the chest. COMPARISON: 06/12/2018 IMPRESSION: A tracheostomy tube is again seen. There is no pneumothorax. Bibasilar atelectasis is again noted. There is no significant appearing pleural fluid. The cardiomediastinal silhouette is magnified by technique. Signed: Jacqueline Hilliard MDReport Verified Date/Time:06/12/2018 12:29:27 Reading Location: [address] Consult Reading Room POCT-GLUCOSE [id number] 12:10:00 Test Item Value Reference Range Comments POC-GLUCOSE METER (BEAKER) 194 mg/dL 70-110 TESTED AT [address] (test sflt=9013) [place] [address] CT, CHEST, WITH [id number] 10:26:00Premedicated for contrast allergy. With general anesthesia [...] Manort Verified Date/Time: 06/12/2018 10:26:26 Reading Location: [facility] Diagnostic Imaging Reading Room - [place] [address], SOFT TISSUE NECK, [id number] 09:53: 00Premedicated for contrast allergy. With gneral [...] MDRnicolasort Verified Date/Time: 06/12/2018 09:53:06 Reading Location: [facility] B1 C013V Neuro Reading Room [id number] 06:00:00 Test Item Value Reference Range Comments PHOSPHORUS (BEAKER) (test mbqq=234) 2.9 mg/dL 2.3-4.7 [id number] 06:00:00 Test Item Value Reference Range Comments MAGNESIUM (BEAKER) (test nhvt=169) 2.1 mg/dL 1.6-2.6 BASIC METABOLIC [id number] 06:00:00 Test Item Value Reference Range Comments SODIUM (BEAKER) (test 139 meq/L 136-145 cdni=150) POTASSIUM (BEAKER) (test 3.9 meq/L 3.5-5.1 lrhq=230) CHLORIDE (BEAKER) (test 104 meq/L 98-107 suuy=817) CO2 (BEAKER) (test 26 meq/L 22-29 ztes=658) BLOOD UREA NITROGEN 13 mg/dL 7-21 (BEAKER) (test ixnx=194) CREATININE (BEAKER) (test 0.65 mg/dL 0.57-1.25 lzmv=389) GLUCOSE RANDOM (BEAKER) 109 mg/dL 70-105 (test buhf=901) CALCIUM (BEAKER) (test 9.5 mg/dL 8.4-10.2 loxs=257) EGFR (BEAKER) (test 132 mL/min/1.73 sq m ESTIMATED GFR IS NOT gift=3820) ACCURATE CREATININE CLEARANCE IN PREDICTING GLOMERULAR FILTRATION RATE. ESTIMATED GFR IS NOT APPLICABLE FOR DIALYSIS PATIENTS. POCT-GLUCOSE [id number] 05:44:00 Test Item Value Reference Range Comments POC-GLUCOSE METER (BEAKER) 157 mg/dL 70-110 TESTED AT [facility] [address] [facility] (test visb=1043) [facility] [address] CBC W/PLT COUNT & AUTO [id number] 04:29:00 Test Item Value Reference Range Comments WHITE BLOOD CELL COUNT (BEAKER) (test dcwa=294) 17.3 K/ L 3.5-10.5 RED BLOOD CELL COUNT (BEAKER) (test vxbu=105) 4.42 M/ L 4.63-6.08 HEMOGLOBIN (BEAKER) (test tfqt=125) 14.4 GM/DL 13.7-17.5 HEMATOCRIT (BEAKER) (test geaa=101) 43.7 % 40.1-51.0 MEAN CORPUSCULAR VOLUME (BEAKER) (test ghsy=161) 98.9 fL 79.0-92.2 MEAN CORPUSCULAR HEMOGLOBIN (BEAKER) (test 32.6 pg 25.7-32.2 demx=567) MEAN CORPUSCULAR HEMOGLOBIN CONC (BEAKER) (test 33.0 GM/DL 32.3-36.5 khpu=255) RED CELL DISTRIBUTION WIDTH (BEAKER) (test 14.2 % 11.6-14.4 yack=034) PLATELET COUNT (BEAKER) (test xowh=169) 180 K/CU MM 150-450 MEAN PLATELET VOLUME (BEAKER) (test ldmr=633) 10.9 fL 9.4-12.4 NUCLEATED RED BLOOD CELLS (BEAKER) (test 0 /100 WBC 0-0 uzzk=128) NEUTROPHILS RELATIVE PERCENT (BEAKER) (test 94 % irwb=467) LYMPHOCYTES RELATIVE PERCENT (BEAKER) (test 2 % sujb=940) MONOCYTES RELATIVE PERCENT (BEAKER) (test 3 % tqfm=357) EOSINOPHILS RELATIVE PERCENT (BEAKER) (test 0 % zmoh=020) BASOPHILS RELATIVE PERCENT (BEAKER) (test 0 % xpsg=788) NEUTROPHILS ABSOLUTE COUNT (BEAKER) (test 16.28 K/ L 1.78-5.38 atms=104) LYMPHOCYTES ABSOLUTE COUNT (BEAKER) (test 0.28 K/ L 1.32-3.57 gyfx=718) MONOCYTES ABSOLUTE COUNT (BEAKER) (test 0.55 K/ L 0.30-0.82 jmuw=963) EOSINOPHILS ABSOLUTE COUNT (BEAKER) (test 0.00 K/ L 0.04-0.54 jkqr=463) BASOPHILS ABSOLUTE COUNT (BEAKER) (test 0.02 K/ L 0.01-0.08 rsvc=852) IMMATURE GRANULOCYTES-RELATIVE PERCENT (BEAKER) 1 % 0-1 (test lgtm=5338) RAD, CHEST, 1 VIEW, NON [id number] 04:26:00Reason for exam:->evaluate for pneumo r/t CTShould this be performed at the bedside?->YesFINAL REPORT CLINICAL INDICATION: Support lines. Comparison: 2018 The cardiomediastinal contours are stable. The lung volumes remain low. The lateral pulmonary opacities are similar to previous within variation of acquisition technique. There is no pneumothorax. A tracheostomy tube is stable. Signed: Jakob Garcia MDReport Verified Date/Time: 06/12/2018 04:26:44 Reading Location: [address] Reading Room Electronically signed by: JAKOB GARCIA M.D. on06/12/2018 04:26 [id number] 04:02:00 Test Item Value Reference Range Comments PARTIAL THROMBOPLASTIN TIME (BEAKER) (test 29.1 seconds 22.5-36.0 dubd=271) PROTHROMBIN [id number] 04:01:00 Test Item Value Reference Range Comments PROTIME (BEAKER) (test krga=008) 13.4 seconds 11.7-14.7 INR (BEAKER) (test iapb=277) 1.0 <=5.9 RECOMMENDED COUMADIN/WARFARIN INR THERAPY RANGESSTANDARD DOSE: 2.0 - 3.0 Includes: PROPHYLAXIS forvenous thrombosis, systemic embolization; TREATMENT for venous thrombosis and/or pulmonary embolus.HIGH RISK: Target INR is 2.5-3.5 for patients with mechanical heart valves.POCT-GLUCOSE [id number] 00:10:00 Test Item Value Reference Range Comments POC-GLUCOSE METER (BEAKER) 225 mg/dL 70-110 TESTED AT [facility] [address] [facility] (test ipun=0770) [facility] [address] POCT-GLUCOSE [id number] 06:14:00 Test Item Value Reference Range Comments POC-GLUCOSE METER (BEAKER) 129 mg/dL 70-110 TESTED AT [facility] [address] [facility] (test wmle=3355) [facility] [address] TSH/FREE T4 IF [id number] 04:46:00 Test Item Value Reference Range Comments THYROID STIMULATING HORMONE (BEAKER) (test 0.87 uIU/mL 0.35-4.94 lmuz=454) CBC W/PLT COUNT & AUTO [id number] 04:30:00 Test Item Value Reference Range Comments WHITE BLOOD CELL COUNT (BEAKER) (test bqyp=996) 16.2 K/ L 3.5-10.5 RED BLOOD CELL COUNT (BEAKER) (test dkzb=412) 4.01 M/ L 4.63-6.08 HEMOGLOBIN (BEAKER) (test krrr=805) 12.9 GM/DL 13.7-17.5 HEMATOCRIT (BEAKER) (test nguo=980) 41.0 % 40.1-51.0 MEAN CORPUSCULAR VOLUME (BEAKER) (test sffw=921) 102.2 fL 79.0-92.2 MEAN CORPUSCULAR HEMOGLOBIN (BEAKER) (test 32.2 pg 25.7-32.2 renb=135) MEAN CORPUSCULAR HEMOGLOBIN CONC (BEAKER) (test 31.5 GM/DL 32.3-36.5 gvxu=764) RED CELL DISTRIBUTION WIDTH (BEAKER) (test 14.5 % 11.6-14.4 ujzz=450) PLATELET COUNT (BEAKER) (test oupf=013) 176 K/CU MM 150-450 MEAN PLATELET VOLUME (BEAKER) (test flkp=771) 10.9 fL 9.4-12.4 NUCLEATED RED BLOOD CELLS (BEAKER) (test 0 /100 WBC 0-0 sadq=036) NEUTROPHILS RELATIVE PERCENT (BEAKER) (test 93 % mliw=059) LYMPHOCYTES RELATIVE PERCENT (BEAKER) (test 2 % pxdd=724) MONOCYTES RELATIVE PERCENT (BEAKER) (test 4 % ikvn=432) EOSINOPHILS RELATIVE PERCENT (BEAKER) (test 0 % nxaj=803) BASOPHILS RELATIVE PERCENT (BEAKER) (test 0 % dkyq=355) NEUTROPHILS ABSOLUTE COUNT (BEAKER) (test 15.09 K/ L 1.78-5.38 mdga=528) LYMPHOCYTES ABSOLUTE COUNT (BEAKER) (test 0.28 K/ L 1.32-3.57 bpln=282) MONOCYTES ABSOLUTE COUNT (BEAKER) (test 0.60 K/ L 0.30-0.82 tlzy=476) EOSINOPHILS ABSOLUTE COUNT (BEAKER) (test 0.00 K/ L 0.04-0.54 njel=664) BASOPHILS ABSOLUTE COUNT (BEAKER) (test 0.02 K/ L 0.01-0.08 dude=200) IMMATURE GRANULOCYTES-RELATIVE PERCENT (BEAKER) 1 % 0-1 (test lkgd=3505) [id number] 04:26:00 Test Item Value Reference Range Comments PREALBUMIN (BEAKER) (test ydei=603) 25 mg/dL 14-45 [id number] 04:24:00 Test Item Value Reference Range Comments PHOSPHORUS (BEAKER) (test fpkv=551) 3.5 mg/dL 2.3-4.7 [id number] 04:24:00 Test Item Value Reference Range Comments MAGNESIUM (BEAKER) (test jost=464) 2.0 mg/dL 1.6-2.6 BASIC METABOLIC [id number] 04:24:00 Test Item Value Reference Range Comments SODIUM (BEAKER) (test 140 meq/L 136-145 fvkd=918) POTASSIUM (BEAKER) (test 3.9 meq/L 3.5-5.1 mrea=266) CHLORIDE (BEAKER) (test 105 meq/L 98-107 zmcp=868) CO2 (BEAKER) (test 26 meq/L 22-29 ihat=574) BLOOD UREA NITROGEN 11 mg/dL 7-21 (BEAKER) (test iont=355) CREATININE (BEAKER) (test 0.67 mg/dL 0.57-1.25 ursu=063) GLUCOSE RANDOM (BEAKER) 129 mg/dL 70-105 (test dzpf=278) CALCIUM (BEAKER) (test 9.2 mg/dL 8.4-10.2 svzp=072) EGFR (BEAKER) (test 127 mL/min/1.73 sq m ESTIMATED GFR IS NOT ruky=0702) ACCURATE CREATININE CLEARANCE IN PREDICTING GLOMERULAR FILTRATION RATE. ESTIMATED GFR IS NOT APPLICABLE FOR DIALYSIS PATIENTS. PROTHROMBIN [id number] 04:19:00 Test Item Value Reference Range Comments PROTIME (BEAKER) (test jbxk=819) 14.5 seconds 11.7-14.7 INR (BEAKER) (test bbfe=134) 1.1 <=5.9 RECOMMENDED COUMADIN/WARFARIN INR THERAPY RANGESSTANDARD DOSE: 2.0 - 3.0 Includes: PROPHYLAXIS forvenous thrombosis, systemic embolization; TREATMENT for venous thrombosis and/or pulmonary embolus.HIGH RISK: Target INR is 2.5-3.5 for patients with mechanical heart valves.[id number] 04:19:00 Test Item Value Reference Range Comments PARTIAL THROMBOPLASTIN TIME (BEAKER) (test 29.7 seconds 22.5-36.0 nlju=526) POCT-GLUCOSE [id number] 01:04:00 Test Item Value Reference Range Comments POC-GLUCOSE METER (BEAKER) 128 mg/dL 70-110 TESTED AT [address] (test apxa=2676) [facility] [address] POCT-GLUCOSE [id number] 18:19:00 Test Item Value Reference Range Comments POC-GLUCOSE METER (BEAKER) 93 mg/dL 70-110 TESTED AT [address] (test ghny=6131) [facility] [id number] POCT-GLUCOSE [id number] 11:44:00 Test Item Value Reference Range Comments POC-GLUCOSE METER (BEAKER) 87 mg/dL 70-110 TESTED AT [address] (test tafx=0813) [facility] [address] POCT-GLUCOSE [id number] 06:13:00 Test Item Value Reference Range Comments POC-GLUCOSE METER (BEAKER) 158 mg/dL 70-110 TESTED AT [address] (test epwe=6148) [facility] [address] BLOOD GAS, [id number] 04:53:00 Test Item Value Reference Range Comments PH VENOUS (BEAKER) (test rfof=511) 7.48 7.32-7.42 PCO2 VENOUS (BEAKER) (test pftq=709) 37 mmHg 41-51 PO2 VENOUS (BEAKER) (test cout=270) 94 mmHg 25-40 O2 SATURATION VENOUS (BEAKER) (test sozg=377) 97.7 % 40.0-70.0 HCO3 VENOUS (BEAKER) (test canh=586) 27 mmol/L 21-29 BASE EXCESS VENOUS (BEAKER) (test miqr=245) 3.7 mmol/L -2.0-3.0 PATIENT TEMPERATURE (BEAKER) (test wigw=8096) 37.0 C RAD, CHEST, 1 VIEW, NON [id number] 04:42:00Reason for exam:->s/p tracheostomyShould this be performed [...] Carrillo Verified Date/Time: 06/10/2018 04:42:37 Reading Location: [address] Reading Room [id number] 04:29:00 Test Item Value Reference Range Comments MAGNESIUM (BEAKER) (test 2.2 mg/dL 1.6-2.6 Specimen slightly hemolyzed mfnv=322) [id number] 04:29:00 Test Item Value Reference Range Comments PHOSPHORUS (BEAKER) (test 3.7 mg/dL 2.3-4.7 Specimen slightly hemolyzed vdut=121) BASIC METABOLIC [id number] 04:29:00 Test Item Value Reference Range Comments SODIUM (BEAKER) (test 139 meq/L 136-145 msme=581) POTASSIUM (BEAKER) (test 4.0 meq/L 3.5-5.1 Specimen slightly chkg=127) hemolyzed CHLORIDE (BEAKER) (test 105 meq/L 98-107 fxnw=288) CO2 (BEAKER) (test 24 meq/L 22-29 ynaa=123) BLOOD UREA NITROGEN 11 mg/dL 7-21 (BEAKER) (test mftp=318) CREATININE (BEAKER) (test 0.70 mg/dL 0.57-1.25 Specimen slightly fgaa=102) hemolyzed GLUCOSE RANDOM (BEAKER) 159 mg/dL 70-105 (test owyo=023) CALCIUM (BEAKER) (test 9.4 mg/dL 8.4-10.2 mowj=532) EGFR (BEAKER) (test 121 mL/min/1.73 sq m ESTIMATED GFR IS NOT zugj=2895) ACCURATE CREATININE CLEARANCE IN PREDICTING GLOMERULAR FILTRATION RATE. ESTIMATED GFR IS NOT APPLICABLE FOR DIALYSIS PATIENTS. [id number] 04:18:00 Test Item Value Reference Range Comments PARTIAL THROMBOPLASTIN TIME (BEAKER) (test 24.5 seconds 22.5-36.0 whfp=334) PROTHROMBIN [id number] 04:17:00 Test Item Value Reference Range Comments PROTIME (BEAKER) (test dcfv=531) 13.7 seconds 11.7-14.7 INR (BEAKER) (test wzbp=195) 1.0 <=5.9 RECOMMENDED COUMADIN/WARFARIN INR THERAPY RANGESSTANDARD DOSE: 2.0 - 3.0 Includes: PROPHYLAXIS forvenous thrombosis, systemic embolization; TREATMENT for venous thrombosis and/or pulmonary embolus.HIGH RISK: Target INR is 2.5-3.5 for patients with mechanical heart valves.CBC W/PLT COUNT & AUTO [id number] 04:06:00 Test Item Value Reference Range Comments WHITE BLOOD CELL COUNT (BEAKER) (test zztm=157) 17.9 K/ L 3.5-10.5 RED BLOOD CELL COUNT (BEAKER) (test stbz=357) 4.34 M/ L 4.63-6.08 HEMOGLOBIN (BEAKER) (test qdql=452) 13.7 GM/DL 13.7-17.5 HEMATOCRIT (BEAKER) (test afon=982) 42.8 % 40.1-51.0 MEAN CORPUSCULAR VOLUME (BEAKER) (test cggn=471) 98.6 fL 79.0-92.2 MEAN CORPUSCULAR HEMOGLOBIN (BEAKER) (test 31.6 pg 25.7-32.2 hpfh=764) MEAN CORPUSCULAR HEMOGLOBIN CONC (BEAKER) (test 32.0 GM/DL 32.3-36.5 zxai=467) RED CELL DISTRIBUTION WIDTH (BEAKER) (test 14.4 % 11.6-14.4 yvol=465) PLATELET COUNT (BEAKER) (test zooi=139) 194 K/CU MM 150-450 MEAN PLATELET VOLUME (BEAKER) (test lgoe=663) 10.5 fL 9.4-12.4 NUCLEATED RED BLOOD CELLS (BEAKER) (test 0 /100 WBC 0-0 gteb=768) NEUTROPHILS RELATIVE PERCENT (BEAKER) (test 92 % ecpo=543) LYMPHOCYTES RELATIVE PERCENT (BEAKER) (test 2 % gqpr=161) MONOCYTES RELATIVE PERCENT (BEAKER) (test 5 % mxxo=372) EOSINOPHILS RELATIVE PERCENT (BEAKER) (test 0 % afbb=239) BASOPHILS RELATIVE PERCENT (BEAKER) (test 0 % idce=592) NEUTROPHILS ABSOLUTE COUNT (BEAKER) (test 16.35 K/ L 1.78-5.38 lule=006) LYMPHOCYTES ABSOLUTE COUNT (BEAKER) (test 0.40 K/ L 1.32-3.57 oqae=514) MONOCYTES ABSOLUTE COUNT (BEAKER) (test 0.86 K/ L 0.30-0.82 pvwt=850) EOSINOPHILS ABSOLUTE COUNT (BEAKER) (test 0.00 K/ L 0.04-0.54 umcw=936) BASOPHILS ABSOLUTE COUNT (BEAKER) (test 0.03 K/ L 0.01-0.08 zoxv=685) IMMATURE GRANULOCYTES-RELATIVE PERCENT (BEAKER) 1 % 0-1 (test htqi=7344) POCT-GLUCOSE [id number] 01:05:00 Test Item Value Reference Range Comments POC-GLUCOSE METER (BEAKER) 161 mg/dL 70-110 TESTED AT [address] (test rqjt=7638) [facility] [address] RAD, CHEST, 1 VIEW, NON [id number] 22:19:00Reason for exam:->Laryngeal massShould this be performed [...] MDReport Verified Date/Time: 06/09/2018 22:19:49 Reading Location: [address] Consult Reading Room 10: 19 PMRAD, CHEST, 1 VIEW, NON [id number] 20:37:00Reason for exam:-> Laryngeal massShould this be [...] MDReport Verified Date/Time: 01/2019 20:37:30 Reading Location: [address] Reading Room RAD, CHEST, 1 VIEW, NON [id number] 20:18:00Reason for exam:->Post-opShould this be performed at [...] MDReport Verified Date/Time: 06/09/2018 20:18:45 Reading Location: [address] Reading Room CBC W/PLT COUNT & AUTO [id number] 19:32:00 Test Item Value Reference Range Comments WHITE BLOOD CELL COUNT (BEAKER) (test uhal=090) 22.9 K/ L 3.5-10.5 RED BLOOD CELL COUNT (BEAKER) (test sygw=751) 4.82 M/ L 4.63-6.08 HEMOGLOBIN (BEAKER) (test ioxs=670) 15.5 GM/DL 13.7-17.5 HEMATOCRIT (BEAKER) (test kkus=243) 48.5 % 40.1-51.0 MEAN CORPUSCULAR VOLUME (BEAKER) (test sxqt=800) 100.6 fL 79.0-92.2 MEAN CORPUSCULAR HEMOGLOBIN (BEAKER) (test 32.2 pg 25.7-32.2 ebdc=125) MEAN CORPUSCULAR HEMOGLOBIN CONC (BEAKER) (test 32.0 GM/DL 32.3-36.5 budi=927) RED CELL DISTRIBUTION WIDTH (BEAKER) (test 14.5 % 11.6-14.4 cmbb=687) PLATELET COUNT (BEAKER) (test intu=599) 201 K/CU MM 150-450 MEAN PLATELET VOLUME (BEAKER) (test vget=634) 10.1 fL 9.4-12.4 NUCLEATED RED BLOOD CELLS (BEAKER) (test 0 /100 WBC 0-0 kwtj=335) (CELLAVISION MANUAL DIFF)2018-06-09 19:32:00 Test Item Value Reference Range Comments NEUTROPHILS - REL (CELLAVISION)(BEAKER) (test 94 % wqyv=2782) MONOCYTES - REL (CELLAVISION)(BEAKER) (test 4 % posb=3673) BANDS - REL (CELLAVISION)(BEAKER) (test 1 % 0-10 tpcd=5242) NEUTROPHILS - ABS (CELLAVISION)(BEAKER) (test 21.53 K/ul 1.78-5.38 wvkb=7402) MONOCYTES - ABS (CELLAVISION)(BEAKER) (test 0.92 K/uL 0.30-0.82 dgnv=1517) BANDS - ABS (CELLAVISION)(BEAKER) (test 0.23 K/uL 0.00-0.80 fdab=0166) TOTAL COUNTED (BEAKER) (test yiaf=4085) 100 RBC MORPHOLOGY (BEAKER) (test rcie=350) Normal PLT MORPHOLOGY (BEAKER) (test iefu=469) Normal HYPERSEGMENTATION (CELLAVISION)(BEAKER) (test Present imtt=3574) ARTIFACT (CELLAVISION)(BEAKER) (test jpee=1420) Present PLATELET CONCENTRATION (CELLAVISION)(BEAKER) Adequate (test rdxk=5449) Received comment: User comments: Slide comments:[id number] 19:25:00 Test Item Value Reference Range Comments PHOSPHORUS (BEAKER) (test jfrq=884) 4.7 mg/dL 2.3-4.7 [id number] 19:25:00 Test Item Value Reference Range Comments MAGNESIUM (BEAKER) (test rhxr=007) 2.2 mg/dL 1.6-2.6 BASIC METABOLIC [id number] 19:25:00 Test Item Value Reference Range Comments SODIUM (BEAKER) (test 139 meq/L 136-145 hrpb=793) POTASSIUM (BEAKER) (test 3.9 meq/L 3.5-5.1 oaek=510) CHLORIDE (BEAKER) (test 103 meq/L 98-107 ikfm=802) CO2 (BEAKER) (test 27 meq/L 22-29 wvmx=085) BLOOD UREA NITROGEN 15 mg/dL 7-21 (BEAKER) (test ylab=341) CREATININE (BEAKER) (test 0.81 mg/dL 0.57-1.25 dxvh=458) GLUCOSE RANDOM (BEAKER) 139 mg/dL 70-105 (test azrk=854) CALCIUM (BEAKER) (test 9.3 mg/dL 8.4-10.2 ayoc=545) EGFR (BEAKER) (test 102 mL/min/1.73 sq m ESTIMATED GFR IS NOT kcie=1325) ACCURATE CREATININE CLEARANCE IN PREDICTING GLOMERULAR FILTRATION RATE. ESTIMATED GFR IS NOT APPLICABLE FOR DIALYSIS PATIENTS. PROTHROMBIN [id number] 19:18:00 Test Item Value Reference Range Comments PROTIME (BEAKER) (test dify=906) 13.0 seconds 11.7-14.7 INR (BEAKER) (test yayo=027) 1.0 <=5.9 RECOMMENDED COUMADIN/WARFARIN INR THERAPY RANGESSTANDARD DOSE: 2.0 - 3.0 Includes: PROPHYLAXIS forvenous thrombosis, systemic embolization; TREATMENT for venous thrombosis and/or pulmonary embolus.HIGH RISK: Target INR is 2.5-3.5 for patients with mechanical heart valves.[id number] 19:18:00 Test Item Value Reference Range Comments PARTIAL THROMBOPLASTIN TIME (BEAKER) (test 24.0 seconds 22.5-36.0 wxhi=137) [id number] 12:47:00 Test Item Value Reference Range Comments HEMOGLOBIN (BEAKER) (test zffv=685) 15.7 GM/DL 13.7-17.5 PLATELET [id number] 12:47:00 Test Item Value Reference Range Comments PLATELET COUNT (BEAKER) (test mjzb=935) 203 K/CU MM 150-450
[2018-09-11] MEDS ORDERED: NA CHLORIDE 0.9% 1,000 ML ONE (14:44)
[2018-09-11] MEDS ORDERED: FENTANYL CITR 100 MCG/2 ML ONE ×2 (14:44→17:37)
[2018-09-11] MEDS ORDERED: NA CHLORIDE 0.9% 2,000 ML ONE (15:47)
[2018-09-11 15:48] LABS: Absolute Lymphocytes (CBC) 0.8 K/uL (0.7-4.9); Absolute Monocytes 0.9 K/uL (0.1-1.3); Absolute Neutrophil 8.4 K/uL (1.8-8.0); Basophils % 0.5 % (0-1.3); Eosinophils % 1.3 % (0-4.4); Hematocrit 41.9 % (39.6-49.0); Lymphocytes % 7.5 % (15.3-44.8); MPV 8.4 fL (7.6-11.3); Monocytes % 8.7 % (3.3-12.3); RBC Red Blood Cell Count 4.62 M/uL (4.33-5.43)
[2018-09-11 15:49] LABS: ALT/SGPT 27 U/L (12-78); AST/SGOT 14 U/L (15-37); Albumin 3.6 g/dL (3.4-5.0); Alkaline Phosphatase 109 U/L (45-117); BUN Blood Urea Nitrogen 9 mg/dL (7-18); Bicarbonate 23 mmol/L (21-32); Bilirubin Direct < 0.1 mg/dL (0-0.2); Bilirubin Total 0.4 mg/dL (0.2-1.0); Glucose Level 125 mg/dL (74-106); Potassium 3.7 mmol/L (3.5-5.1); Protein, Total 6.9 g/dL (6.4-8.2); Sodium Level 142 mmol/L (136-145)
--- NOTE | 2018-09-11 15:55 | RAD REPORT ---
EXAM DESCRIPTION: RAD - Chest Single View - 09/11/2018 3:46 pm CLINICAL HISTORY: neck swelling Chest pain. COMPARISON: Chest Single View dated 09/07/2018; Chest Single View dated 08/30/2018; Chest Single View da meng 08/29/2018; Chest Single View dated 07/04/2018 FINDINGS: Portable technique limits examination quality. The lungs are grossly clear. The heart is normal in size. No displaced fractures.Right-sided PICC nolan e has tip in the SVC. IMPRESSION: No acute intrathoracic process suspected.
[2018-09-11] MEDS ORDERED: DIPHENHYDRAMINE 50 MG/ML VIAL ONE (16:32)
[2018-09-11] MEDS ORDERED: ONDANSETRON 4 MG/2 ML VIAL ONE (16:32)
--- NOTE | 2018-09-11 17:08 | RAD REPORT ---
EXAM DESCRIPTION: CT - Soft Tissue Neck W/Contr CLINICAL HISTORY: SWELLING Pain and swelling to the neck. COMPARISON: Soft Tissue Neck W/Contr dated 09/07/2018; Soft Tissue Neck W/Contr dated 08/29/2018; Soft Tissue Neck Wo Contr dated 05/26/2018; Soft Tissue Neck Wo Contr dated 10/05/[address] scans are performed using dose optimization technique as appropriate and may includ e automated exposure control or mA/KV adjustment according to patient size. FINDINGS: Laryngectomy changes are present. Inflammatory changes are seen along the skin and subcutaneous tissues submandibular region bilaterall y. No abscess collection is present. The salivary glands are symmetric. Parapharyngeal fat triangles are symmetric. IMPRESSION: The previously noted right submandibular abscess is no longer seen, however inflammatory changes do persist in both submandibular regions, greater on the right.
[2018-09-11] MEDS ORDERED: WATER FOR INJ,STERILE 10 ML IV SCH (18:00)
[2018-09-11] MEDS ORDERED: ALTEPLASE 2 MG/VIAL IV SCH (18:00)
[2018-09-11] MEDS ORDERED: DEXAMETHASONE 10 MG/ML VIAL ONE (19:06)
--- NOTE | 2018-09-11 19:14 | EDPHYS ---
Physician Documentation [facility] Name: Akin Pugh Age: 48 yrs Sex: Male : 1970 Arrival Date: 09/11/2018 Time: 13:30 Bed 24 Private MD: ED Physician Ren Bruner HPI: 09/11 14:35 This 48 yrs old Male presents to ER via Ambulatory with complaints of cp Swelling around surgical site. 14:35 The patient or guardian complains of pain, swelling, tenderness. The symptoms are cp located on the anterior and right lateral neck. 14:35 Onset: The symptoms/episode began/occurred 3 day(s) ago. Associated signs and symptoms: cp Pertinent positives: fever 101 today. Historical: - Allergies: 13:44 Ampicillin; ch 13:44 Iodinated Contrast Media - IV Dye; ch 13:44 Iodine; ch 13:44 Levaquin; ch - PMHx: 13:44 Asthma; COPD; THROAT CA; ch - PSHx: 13:44 Appendectomy; trach x2; chest tube; laryngectomy; ch - Immunization history:: Adult Immunizations up to date. - Social history:: Smoking status: Patient/guardian denies using tobacco. - Ebola Screening: : Patient negative for fever greater than or equal to 101.5 degrees Fahrenheit, and additional compatible Ebola Virus Disease symptoms Patient denies exposure to infectious person Patient denies travel to an Ebola-affected area in the 21 days before illness onset No symptoms or risks identified at this time. ROS: 14:40 Constitutional: Negative for body aches, poor PO intake. cp 14:40 Eyes: Negative for injury, pain, redness, and discharge. cp 14:40 ENT: Positive for difficulty handling secretions, difficulty swallowing, sinus congestion. 14:40 Neck: Positive for pain with movement, pain at rest, swelling, tenderness, of the anterior and right lateral neck. 14:40 Cardiovascular: Negative for chest pain, edema, palpitations. 14:40 Respiratory: Negative for cough, shortness of breath, wheezing. 14:40 Abdomen/GI: Negative for abdominal pain, nausea, vomiting, and diarrhea, constipation, black/tarry stool. 14:40 Back: Negative for pain at rest, pain with movement, radiated pain. 14:40 MS/extremity: Negative for injury or acute deformity, decreased range of motion. 14:40 Neuro: Negative for altered mental status, headache, weakness. 14:40 All other systems are negative. Exam: 14:45 Constitutional: The patient appears in no acute distress, alert, awake, cp non-diaphoretic, non-toxic, well developed, well nourished. 14:45 Head/Face: Normocephalic, atraumatic. cp 14:45 Eyes: Periorbital structures: appear normal, Pupils: equal, round, and reactive to light and accomodation, Extraocular movements: intact throughout, Conjunctiva: normal, no exudate, no injection, Sclera: no appreciated abnormality, Lids and lashes: appear normal, bilaterally. 14:45 ENT: External ear(s): are unremarkable, Ear canal(s): are normal, clear, TM's: are normal, no evidence of bulging, no erythema, Nose: is normal, Mouth: Lips: moist, Oral mucosa: pink and intact, moist, Posterior pharynx: Airway: no evidence of obstruction, patent. 14:45 Neck: External neck: swelling, that is mild, of the thyroid cartilage and right lateral neck, tenderness, that is moderate, of the thyroid cartilage, ROM/movement: Meningeal signs: are not present, nuchal rigidity, is not appreciated, noted tracheostomy. 14:45 Chest/axilla: Inspection: normal, Palpation: is normal, no crepitus, no tenderness. 14:45 Cardiovascular: Rate: normal, Rhythm: regular, Edema: is not appreciated, JVD: is not appreciated. 14:45 Respiratory: the patient does not display signs of respiratory distress, Respirations: normal, no use of accessory muscles, no retractions, no splinting, no tachypnea, labored breathing, is not present, Breath sounds: are clear throughout, no decreased breath sounds, no stridor, no wheezing. 14:45 Abdomen/GI: Exam negative for discomfort, distension, guarding, Inspection: abdomen appears normal, Palpation: abdomen is soft and non-tender, rebound tenderness, is not appreciated. Vital Signs: 13:44 BP 139 / 92; Pulse 88; Resp 20; Temp 99.7; Pulse Ox 99% on R/A; Weight 86.18 kg; Height ch 6 ft. (182.88 cm); 14:22 BP 109 / 73; Pulse 89; Resp 17 S; Pulse Ox 99% on R/A; ca1 15:30 BP 126 / 86; Pulse 83; Resp 17 S; Pulse Ox 100% on R/A; ca1 16:44 BP 127 / 73; Pulse 73; Resp 17; Pulse Ox 98% on R/A; ca1 17:15 BP 115 / 76; Pulse 67; Resp 17; Temp 99(O); Pulse Ox 100% on R/A; ca1 18:33 BP 134 / 81; Pulse 65; Resp 17 S; Pulse Ox 100% on R/A; ca1 19:26 BP 132 / 85; Pulse 67; Resp 16 S; Temp 99(O); Pulse Ox 100% on R/A; ca1 13:44 Body Mass Index 25.77 (86.18 kg, 182.88 cm) ch MDM: 14:11 Patient medically screened. cp 16:10 Physician consultation: Keya Pardo MD was called at 16:00, office reports DR medardo Pardo [place] out of the country and unavailable for consult. 19:12 Data reviewed: vital signs, nurses notes, lab test result(s), radiologic studies, CT cp scan, plain films, I have discussed the patient's presentation/case with the attending Emergency Department Physician; and as a result, I will discharge patient. 19:12 Differential diagnosis: sepsis, bacteremia, respiratory distress. Counseling: I had a cp detailed discussion with the patient and/or guardian regarding: the historical points, exam findings, and any diagnostic results supporting the discharge/admit diagnosis, lab results, radiology results, to return to the emergency department if symptoms worsen or persist or if there are any questions or concerns that arise at home. 09/11 14:23 Order name: CBC with Diff; Complete Time: 15:59 cp 09/11 15:59 Interpretation: Normal except: PLT 276; RDW 18.5; MPV 8.4; SELVIN% 82.0; LYM% 7.5; NEUT A cp 8.4. 09/11 14:23 Order name: BMP; Complete Time: 15:59 cp 09/11 17:35 Interpretation: Normal except: CL 109; GLUC 125; CA 8.3. cp 09/11 14:23 Order name: Lactate; Complete Time: 15:19 cp 09/11 14:23 Order name: Procalcitonin; Complete Time: 15:59 cp 09/11 14:23 Order name: LFT's; Complete Time: 15:59 cp 09/11 14:24 Order name: Vancomycin,Trough; Complete Time: 15:59 cp 09/11 14:24 Order name: PT-INR; Complete Time: 15:59 cp 09/11 14:24 Order name: Ptt, Activated; Complete Time: 15:59 cp 09/11 15:19 Order name: XRAY Chest (1 view); Complete Time: 15:59 cp 09/11 16:03 Order name: CT Soft Tissue Neck W/contr; Complete Time: 17:30 cp 09/11 19:08 Order name: Lactate Sepsis 2 HR Follow-up; Complete Time: 19:08 EDMS 09/11 17:35 Order name: Diet Regular; Complete Time: 17:59 aa5 Administered Medications: 15:19 Not Given (Physician Discretion): NS 0.9% 1000 ml IV at 1 bolus Per protocol; 1000 mL cp bolus 16:28 Drug: Cathflo Activase 2 mg {Note: administered to red port per PA.} Route: IV aa5 Thrombolytics; 18:52 Follow up: Response: No adverse reaction; No adverse reaction. PICC line draws blood ca1 and flushes well.; No adverse reaction. PICC line draws blood and flushes well at this time 16:30 Drug: fentaNYL (PF) 25 mcg Route: IVP; Site: right forearm; ca1 17:19 Follow up: Response: No adverse reaction; Pain is unchanged, physician notified ca1 16:35 Drug: Zofran 4 mg Route: IVP; Site: right forearm; ca1 17:19 Follow up: Response: No adverse reaction; Nausea is decreased ca1 16:36 Drug: NS 0.9% (30 ml/kg) 30 ml/kg Route: IV; Rate: bolus; Site: right forearm; ca1 19:00 Follow up: Urine output 550 ml; Response: No adverse reaction; IV Status: Completed ca1 infusion 16:36 Drug: Benadryl 25 mg Route: IVP; Site: right forearm; ca1 17:20 Follow up: Response: No adverse reaction ca1 17:22 Drug: fentaNYL (PF) 25 mcg Route: IVP; Site: right forearm; ca1 18:18 Follow up: Response: No adverse reaction; Pain is decreased ca1 18:52 Drug: Decadron - Dexamethasone 10 mg Route: IVP; Site: right forearm; ca1 19:21 Follow up: Response: No adverse reaction ca1 19:12 Drug: HYDROcodone-acetaminophen 10 mg-325 mg 1 tabs Route: PO; ca1 19:25 Follow up: Response: Medication administered at discharge. ca1 Disposition: 09/11/18 19:13 Discharged to Home. Impression: Submandibular infection improving. - Condition is Stable. - Discharge Instructions: Cellulitis, Adult. - Medication Reconciliation Form, Thank You Letter, Antibiotic Education, Prescription Opioid Use form. - Follow up: Keya Pardo MD; When: As needed; Reason: Recheck today's complaints. - Problem is an ongoing problem. - Symptoms have improved. Addendum: 09/15/2018 09:56 Co-signature as Attending Physician, Ren Bruner MD I agree with the assessment and c tamayo plan of care. Signatures: Dispatcher [employer] EDTN Xiomy Vásquez, RN RN Ren Moser MD MD cha Calderon, Audri RN RN aa5 Ren Hooks PA PA cp AcSarah yun RN RN ca1 Corrections: (The following items were deleted from the chart) 09/11 15:00 14:23 IV Saline Lock ordered. cp ca1 17:35 16:00 Normal except: CL 109; GLUC 125. cp cp 18:47 17:59 LACTATE+C.LAB.BRZ ordered. [facility] EDMS 19:28 19:13 09/11/2018 19:13 Discharged to Home. Impression: Submandibular infection ca1 improving. Condition is Stable. Forms are Medication Reconciliation Form, Thank You Letter, Antibiotic Education, Prescription Opioid Use. Follow up: Keya Pardo; When: As needed; Reason: Recheck today's complaints. Problem is an ongoing problem. Symptoms have improved. cp
--- NOTE | 2018-09-11 19:14 | ER ---
Nurse's Notes [facility] Name: Akin Pugh Age: 48 yrs Sex: Male : 1970 Arrival Date: 09/11/2018 Time: 13:30 Bed 24 Private MD: Diagnosis: Submandibular infection improving Presentation: 09/11 13:42 Presenting complaint: Patient states: swelling to neck x3 days, surgery center said to ch come here. Transition of care: patient was not received from another setting of care. Onset of symptoms was September 08, 2018. Risk Assessment: Do you want to hurt yourself or someone else? Patient reports no desire to harm self or others. Initial Sepsis Screen: Does the patient meet any 2 criteria? No. Patient's initial sepsis screen is negative. Does the patient have a suspected source of infection? No. Patient's initial sepsis screen is negative. Care prior to arrival: None. 13:42 Method Of Arrival: Ambulatory 13:42 Acuity: PAO 3 Triage Assessment: 13:44 General: Appears in no apparent distress. uncomfortable, Behavior is cooperative, ch appropriate for age. Pain: Complains of pain in neck. Respiratory: Reports cough that is productive, Trachea midline Respiratory effort is even, unlabored. Historical: - Allergies: 13:44 Ampicillin; 13:44 Iodinated Contrast Media - IV Dye; 13:44 Iodine; 13:44 Levaquin; - PMHx: 13:44 Asthma; COPD; THROAT CA; ch - PSHx: 13:44 Appendectomy; trach x2; chest tube; laryngectomy; - Immunization history:: Adult Immunizations up to date. - Social history:: Smoking status: Patient/guardian denies using tobacco. - Ebola Screening: : Patient negative for fever greater than or equal to 101.5 degrees Fahrenheit, and additional compatible Ebola Virus Disease symptoms Patient denies exposure to infectious person Patient denies travel to an Ebola-affected area in the 21 days before illness onset No symptoms or risks identified at this time. Screenin:04 Abuse screen: Denies threats or abuse. Denies injuries from another. Nutritional ca1 screening: No deficits noted. Tuberculosis screening: No symptoms or risk factors identified. Fall Risk IV access (20 points). Assessment: 14:04 General: Appears in no apparent distress. comfortable, Behavior is calm, cooperative, ca1 appropriate for age. General: Reports fever for 0-12 hours. Pain: Complains of pain in neck Pain currently is 8 out of 10 on a pain scale. Neuro: Level of Consciousness is awake, alert, obeys commands, Oriented to person, place, time, situation. Cardiovascular: Heart tones S1 S2 present Capillary refill < 3 seconds Patient's skin is warm and dry. Respiratory: Airway is patent Respiratory effort is even, unlabored, Respiratory pattern is regular, symmetrical, Breath sounds are clear bilaterally. GI:. EENT: Throat tracheostomy tube. . Derm: Skin is intact, is healthy with good turgor, Skin is pink, warm \\T\\ dry. Musculoskeletal: Circulation, motion, and sensation intact. Capillary refill < 3 seconds. 14:08 Derm: Pt has PICC line at R upper arm. Musculoskeletal: ca1 14:30 Reassessment: Pt refused to have a new IV and blood drawn from a new stick. Insisted on ca1 drawing blood and giving IVF and meds to PICC line. Informed Monae Charge nurse. Says OK to draw except for Blood Cultures. 15:00 Reassessment: Blood at PICC line clotted. Informed FERN [place]. Tried flushing slow and ca1 drawing blood, unsuccessful. Informed provider with orders. Sent cath flow request to pharmacy. 16:25 Reassessment: To bedside to speak to patient about PICC line concern. Pt states "the aa5 nurse aditya my blood and now my PICC line is clogged". Asked pt if I could attempt to draw blood from PICC line and pt agreed. Unable to draw or flush red port, notified pt of need for cath-flow and pt agrees to administration. Pt states "I just don't want to be stuck again", apologized to pt about inconvenience, and pt also agrees for IV insertion for fluid and medication administration. Pt denies any other concerns. . 16:28 Reassessment: Purple PICC line port easy to flush and draw blood. Red port with blood aa5 in line and unable to flush. Cath-flow administered per PA. 16:44 Reassessment: Pt to Radiology. ca1 17:10 Reassessment: Attempted to flush red port at this time. Red PICC line port very hard to aa5 flush, notified pt of need to repeat cath-flow. Pt verbalized understanding and agrees. Order faxed to pharmacy. Pt now sitting up in bed watching TV. Denies any complaints at this time. . 17:15 Reassessment: Patient appears in no apparent distress at this time. Patient and/or ca1 family updated on plan of care and expected duration. Pain level reassessed. FERN Vera flushing PICC line at bedside. 17:30 Reassessment: To bedside to administer cath-flow. Able to flush and draw from red PICC aa5 port at this time. No need to repeat cath-flow, pt notified and verbalized understanding. . 18:33 Reassessment: Patient appears in no apparent distress at this time. Patient is alert, ca1 oriented x 3, equal unlabored respirations, skin warm/dry/pink. 19:25 Reassessment: Patient appears in no apparent distress at this time. Patient is alert, ca1 oriented x 3, equal unlabored respirations, skin warm/dry/pink. 19:27 Reassessment: Pt reports is at the lobby to drive him home. ca1 Vital Signs: 13:44 BP 139 / 92; Pulse 88; Resp 20; Temp 99.7; Pulse Ox 99% on R/A; Weight 86.18 kg; Height ch 6 ft. (182.88 cm); 14:22 BP 109 / 73; Pulse 89; Resp 17 S; Pulse Ox 99% on R/A; ca1 15:30 BP 126 / 86; Pulse 83; Resp 17 S; Pulse Ox 100% on R/A; ca1 16:44 BP 127 / 73; Pulse 73; Resp 17; Pulse Ox 98% on R/A; ca1 17:15 BP 115 / 76; Pulse 67; Resp 17; Temp 99(O); Pulse Ox 100% on R/A; ca1 18:33 BP 134 / 81; Pulse 65; Resp 17 S; Pulse Ox 100% on R/A; ca1 19:26 BP 132 / 85; Pulse 67; Resp 16 S; Temp 99(O); Pulse Ox 100% on R/A; ca1 13:44 Body Mass Index 25.77 (86.18 kg, 182.88 cm) ED Course: 13:30 Patient arrived in ED. mr 13:43 Triage completed. 13:44 Arm band placed on left wrist. Patient placed in an exam room, on a stretcher. ch 13:46 Sarah Dick, RN is Primary Nurse. ca1 14:04 Patient has correct armband on for positive identification. Placed in gown. Bed in low ca1 position. Call light in reach. Side rails up X 1. Pulse ox on. NIBP on. Warm blanket given. 14:11 Ren Hooks PA is PHCP. cp 14:11 Ren Bruner MD is Attending Physician. cp 15:10 Notified Nurse Practitioner and/or Physician Contract Associate of a critical lab result(s), ss lactic acid 3.5. 15:50 XRAY Chest (1 view) In Process Unspecified. EDMS 16:30 Inserted saline lock: 20 gauge in right forearm, using aseptic technique. aa5 16:52 CT Soft Tissue Neck W/contr In Process Unspecified. EDMS 18:43 Repeat lab(s) drawn. by ED staff, sent to lab. ca1 19:11 Keya Pardo MD is Referral Physician. cp 19:27 No provider procedures requiring assistance completed. IV discontinued, intact, ca1 bleeding controlled, No redness/swelling at site. Pressure dressing applied. Administered Medications: 15:19 Not Given (Physician Discretion): NS 0.9% 1000 ml IV at 1 bolus Per protocol; 1000 mL cp bolus 16:28 Drug: Cathflo Activase 2 mg {Note: administered to red port per PA.} Route: IV aa5 Thrombolytics; 18:52 Follow up: Response: No adverse reaction; No adverse reaction. PICC line draws blood ca1 and flushes well.; No adverse reaction. PICC line draws blood and flushes well at this time 16:30 Drug: fentaNYL (PF) 25 mcg Route: IVP; Site: right forearm; ca1 17:19 Follow up: Response: No adverse reaction; Pain is unchanged, physician notified ca1 16:35 Drug: Zofran 4 mg Route: IVP; Site: right forearm; ca1 17:19 Follow up: Response: No adverse reaction; Nausea is decreased ca1 16:36 Drug: NS 0.9% (30 ml/kg) 30 ml/kg Route: IV; Rate: bolus; Site: right forearm; ca1 19:00 Follow up: Urine output 550 ml; Response: No adverse reaction; IV Status: Completed ca1 infusion 16:36 Drug: Benadryl 25 mg Route: IVP; Site: right forearm; ca1 17:20 Follow up: Response: No adverse reaction ca1 17:22 Drug: fentaNYL (PF) 25 mcg Route: IVP; Site: right forearm; ca1 18:18 Follow up: Response: No adverse reaction; Pain is decreased ca1 18:52 Drug: Decadron - Dexamethasone 10 mg Route: IVP; Site: right forearm; ca1 19:21 Follow up: Response: No adverse reaction ca1 19:12 Drug: HYDROcodone-acetaminophen 10 mg-325 mg 1 tabs Route: PO; ca1 19:25 Follow up: Response: Medication administered at discharge. ca1 Output: 19:00 Urine: 550ml; Total: 550ml. ca1 Outcome: 19:13 Discharge ordered by MD. cp 19:27 Discharged to home ambulatory. ca1 19:27 Condition: stable 19:27 Discharge instructions given to patient, Instructed on discharge instructions, follow up and referral plans. Demonstrated understanding of instructions, follow-up care. 19:28 Patient left the ED. ca1 Signatures: Dispatcher [employer] EDMS Xiomy Vásquez, RN Aury Malhotra ch mr Jody Villegas RN RN Monae Castellanos RN RN ss Page, Corey, PA PA cp Acob, Cheryl RN RN ca1 Corrections: (The following items were deleted from the chart) 15:23 15:00 Reassessment: Pt refused to have a new IV and blood drawn from a new stick. ca1 Insisted on drawing blood and giving IVF and meds to PICC line. Informed Monae Charge nurse. Says OK to draw except for Blood Cultures. ca1 17:57 17:30 Reassessment: To bedside to administer cath-flow. . catherine aa5 19:26 18:33 BP 164 / 81; Pulse 65bpm; Resp 17bpm; Spontaneous; Pulse Ox 100% RA; ca1 ca1
[2018-09-11] MEDS ORDERED: HYDROCODONE/APAP 10/325 TAB ONE (19:32)
[2018-09-11 21:18] VITALS: TEMP 99; O2SAT 100
[2018-09-11 21:22] VITALS: BP 132/85
== END 2018-09-11 19:28 | disposition home or self-care (01) ==
LOC: ER 13:25
DX: M27.2 Inflammatory conditions of jaws (principal); R50.9 Fever, unspecified; J45.909 Unspecified asthma, uncomplicated; J44.9 Chronic obstructive pulmonary disease, unspecified; C14.0 Malignant neoplasm of pharynx, unspecified; Z88.0 Allergy status to penicillin; Z88.8 Allergy status to other drugs, medicaments and biological substances; Z88.1 Allergy status to other antibiotic agents; Z91.041 Radiographic dye allergy status
CPT/HCPCS: 36415; 70491; 71045; 80048; 80076; 80202; 83605; 84145; 85025; 85610; 85730; 92977; 96365; 96366; 96375; 99291; 99292; J1100; J2405; J2997; J3010; J7030

== ENCOUNTER 2019-02-08 09:07 | Observation (INO) | payer MEDICAID ==
[2019-02-08] MEDS ORDERED: MORPHINE 4 MG/ML SYR ONE ×2 (10:41→12:53)
[2019-02-08] MEDS ORDERED: METHYLPREDNISOLONE 125 MG INJ ONE (10:41)
[2019-02-08] MEDS ORDERED: FAMOTIDINE 20 MG/2 ML VIAL IV ONE (10:42)
[2019-02-08] MEDS ORDERED: ONDANSETRON 4 MG/2 ML VIAL ONE (10:42)
[2019-02-08] MEDS ORDERED: NA CHLORIDE 0.9% 1,000 ML ONE (10:42)
[2019-02-08] MEDS ORDERED: DIPHENHYDRAMINE 50 MG/ML VIAL ONE (10:42)
[2019-02-08 11:33] LABS: Absolute Lymphocytes (CBC) 0.5 K/uL (0.7-4.9); Basophils % 0.4 % (0-1.3); Hematocrit 55.8 % (39.6-49.0); Lymphocytes % 5.8 % (15.3-44.8); MPV 8.7 fL (7.6-11.3); RBC Red Blood Cell Count 5.71 M/uL (4.33-5.43)
--- NOTE | 2019-02-08 12:04 | RAD REPORT ---
EXAM DESCRIPTION: CT - Soft Tissue Neck W/Contr - 02/08/2019 11:51 am CLINICAL HISTORY: Neck pain with sore throat and neck swelling COMPARISON: August 2018 TECHNIQUE: Computed axial tomography of the neck was obtained. 50 cc Isovue 300 was administered in travenously. Coronal and sagittal reconstruction was performed. All CT scans are performed using dose optimization technique as appropriate and may include automated exposure control or mA/KV adjustment according to patient size. FINDINGS: Laryngectomy has been performed. Remainder of the airway is unremarkable. The parotid, submandibular and thyroid glands appear unremarkable. Ill-defined stranding is present within the fat adjacent to the right and left submandibular glands. It is moderate on the right mild on the left. An abscess is not seen. The parapharyngeal fat is clear . IMPRESSION: Moderate inflammatory changes within the fat adjacent to the right submandibular gland w ith mild changes on the left having the appearance of a cellulitis. A fluid-filled abscess is not see n.
--- NOTE | 2019-02-08 12:08 | RAD REPORT ---
EXAM DESCRIPTION: CT - Thorax W/ Con - 02/08/2019 11:50 am CLINICAL HISTORY: Chest pain COMPARISON: None TECHNIQUE: Computed axial tomography of the chest was obtained. 100 cc Isovue 300 was administered i ntravenously. All CT scans are performed using dose optimization technique as appropriate and may include automated exposure control or mA/KV adjustment according to patient size. FINDINGS: The lungs appear clear. No mediastinal or hilar lymphadenopathy is seen. A pleural effusion is not present. A pericardial effusion is not seen. Fatty liver. 5.6 centimeter lipoma right infraspinatus muscle IMPRESSION: No acute abnormality is displayed
--- NOTE | 2019-02-08 12:09 | RAD REPORT ---
EXAM DESCRIPTION: Edin Single View02/08/2019 10:55 am CLINICAL HISTORY: fever COMPARISON: August 2018 FINDINGS: The lungs appear clear of acute infiltrate. The heart is normal size IMPRESSION: No acute abnormalities displayed
[2019-02-08] MEDS ORDERED: NICOTINE 21 MG/PAT TD ONE (12:15)
--- NOTE | 2019-02-08 12:37 | ER ---
Nurse's Notes [facility] Name: Akin Pugh Age: 48 yrs Sex: Male : 1970 Arrival Date: 02/08/2019 Time: 09:10 Bed 14 Private MD: None, None Diagnosis: Cellulitis of neck Presentation: 02/08 09:25 Presenting complaint: Patient states: fever, and swelling to neck that began yesterday la1 AM. Transition of care: patient was not received from another setting of care. Onset of symptoms was February 07, 2019. Risk Assessment: Do you want to hurt yourself or someone else? Patient reports no desire to harm self or others. Initial Sepsis Screen: Does the patient meet any 2 criteria? No. Patient's initial sepsis screen is negative. Does the patient have a suspected source of infection? Yes: Other: R/o cellulitis?. Care prior to arrival: None. 09:25 Method Of Arrival: Ambulatory la1 09:25 Acuity: PAO 3 la1 Historical: - Allergies: 09:27 Ampicillin; la1 09:27 Iodinated Contrast Media - IV Dye; la1 09:27 Iodine; la1 09:27 Levaquin; la1 - PMHx: 09:27 Asthma; COPD; THROAT CA; la1 - PSHx: 09:27 Appendectomy; trach x2; chest tube; laryngectomy; la1 - Immunization history:: Adult Immunizations up to date. - Social history:: Smoking status: Patient uses tobacco products, smokes one-half pack cigarettes per day. - Ebola Screening: : Patient denies exposure to infectious person Patient denies travel to an Ebola-affected area in the 21 days before illness onset. Screenin:41 Abuse screen: Denies threats or abuse. Denies injuries from another. Nutritional ph screening: No deficits noted. Tuberculosis screening: No symptoms or risk factors identified. Fall Risk None identified. Assessment: 10:29 General: Appears in no apparent distress. uncomfortable, well groomed, Behavior is ph calm, cooperative, appropriate for age, Reports fever for 12-24 hours. Pain: Complains of pain in neck. Neuro: Level of Consciousness is awake, alert, obeys commands, Oriented to person, place, time, situation. Cardiovascular: Capillary refill < 3 seconds in bilateral fingers Patient's skin is warm and dry. Respiratory: Reports congestion Airway is patent via trache Respiratory effort is even, unlabored, Respiratory pattern is regular, symmetrical, Denies shortness of breath. GI: No signs and/or symptoms were reported involving the gastrointestinal system. Derm: Skin is healthy with good turgor, Skin is pink, warm \T\ dry. redness and slight swelling noted to bilateral neck. Musculoskeletal: Circulation, motion, and sensation intact. Range of motion: intact in all extremities. 11:30 Reassessment: Patient appears in no apparent distress at this time. Patient and/or ph family updated on plan of care and expected duration. Pain level reassessed. Patient is alert, oriented x 3, equal unlabored respirations, skin warm/dry/pink. 12:30 Reassessment: Patient appears in no apparent distress at this time. Patient and/or ph family updated on plan of care and expected duration. Pain level reassessed. Patient is alert, oriented x 3, equal unlabored respirations, skin warm/dry/pink. 13:58 Reassessment: Patient appears in no apparent distress at this time. Patient and/or ph family updated on plan of care and expected duration. Pain level reassessed. Patient is alert, oriented x 3, equal unlabored respirations, skin warm/dry/pink. Report called to Addie PENA. Vital Signs: 09:25 BP 154 / 105; Pulse 89; Resp 17; Temp 98.1(TE); Pulse Ox 96% on R/A; Weight 86.18 kg; la1 Height 6 ft. 0 in. (182.88 cm); Pain 8/10; 10:30 BP 142 / 75; Pulse 77; Resp 20; Pulse Ox 96% on R/A; ph 11:42 BP 136 / 87; Pulse 78; Resp 18; Pulse Ox 95% on R/A; ph 12:30 BP 127 / 90; Pulse 79; Resp 18; Pulse Ox 95% on R/A; ph 13:50 BP 136 / 95; Pulse 87; Resp 20; Temp 97.8; Pulse Ox 96% on R/A; ph 09:25 Body Mass Index 25.77 (86.18 kg, 182.88 cm) la1 ED Course: 09:10 Patient arrived in ED. mr 09:10 None, None is Private Physician. mr 09:25 Arm band placed on right wrist. la1 09:26 Triage completed. la1 10:04 Cornell Sinclair NP is PHCP. pm1 10:04 Sara Jeronimo MD is Attending Physician. pm1 10:08 Tiny Varela, RN is Primary Nurse. ph 10:33 Patient has correct armband on for positive identification. Bed in low position. Call ph light in reach. Side rails up X 1. Pulse ox on. NIBP on. Door closed. Noise minimized. Warm blanket given. pt provided w/ 14 Fr suction catheter to suction secretions from trach. 10:55 Chest Single View XRAY In Process Unspecified. EDMS 11:06 Radiology exam delayed due to pt being premedicated. nurse to call when ready. vm2 11:10 Inserted saline lock: 22 gauge in right forearm, using aseptic technique. ph 11:51 CT completed. Patient tolerated procedure well. Patient moved back from CT. bq 11:52 CT Chest W/ Con In Process Unspecified. EDMS 11:53 CT Soft Tissue Neck W/contr In Process Unspecified. EDMS 12:34 Rafael Mejia MD is Hospitalizing Provider. pm1 13:59 No provider procedures requiring assistance completed. Patient admitted, IV remains in ph place. Administered Medications: 11:12 Drug: NS 0.9% 1000 ml Route: IV; Rate: 1000 ml; Site: right forearm; ph 12:40 Follow up: Response: No adverse reaction; IV Intake: 1000ml ph 13:30 Follow up: Response: No adverse reaction; IV Status: Completed infusion; IV Intake: ph 1000ml 11:13 Drug: Zofran 4 mg Route: IVP; Site: right forearm; ph 12:39 Follow up: Response: No adverse reaction ph 11:15 Drug: morphine 4 mg Route: IVP; Site: right forearm; ph 11:45 Follow up: Response: No adverse reaction; Pain is decreased; RASS: Alert and Calm (0) ph 11:15 Drug: SOLU-Medrol 125 mg Route: IVP; Site: right forearm; ph 12:39 Follow up: Response: No adverse reaction ph 11:16 Drug: Benadryl 25 mg Route: IVP; Site: right forearm; ph 12:39 Follow up: Response: No adverse reaction ph 11:16 Drug: Pepcid 20 mg Route: IVP; Site: right forearm; ph 12:40 Follow up: Response: No adverse reaction ph 12:38 Drug: Nicotine 21 mg/24 hr 1 patches {Note: applied to R upper arm .} Route: ph Transdermal; Site: affected area; 12:40 Follow up: Response: No adverse reaction ph 13:16 Drug: vancoMYCIN 1 grams Route: IVPB; Infused Over: 2 hrs; Site: right forearm; ph 14:00 Follow up: Response: No adverse reaction; IV Status: Infusion continued upon admission ph 13:17 Drug: morphine 4 mg Route: IVP; Site: right forearm; ph 13:45 Follow up: Response: No adverse reaction; Pain is decreased; RASS: Alert and Calm (0) ph Intake: 12:40 IV: 1000ml; Total: 1000ml. ph 13:30 IV: 1000ml; Total: 2000ml. ph Outcome: 12:36 Decision to Hospitalize by Provider. pm1 13:59 Admitted to Med/surg accompanied by tech, family with patient, via wheelchair, room ph 215, with chart, Report called to Addie PENA 13:59 Condition: stable 13:59 Instructed on the need for admit. 14:58 Patient left the ED. ph Signatures: Dispatcher [employer] EDND Aury PrescottvargheseAnusha Lee, RN RN Tiny Mayer RN RN ph Marinas, Patrick, [employer] AREA DIRECTOR pm1 Marlyn Delgado [facility]
--- NOTE | 2019-02-08 12:38 | EDPHYS ---
Physician Documentation [facility] Name: Akin Pugh Age: 48 yrs Sex: Male : 1970 Arrival Date: 02/08/2019 Time: 09:10 Bed 14 Private MD: None, None ED Physician Sara Jeronimo HPI: 02/08 16:59 This 48 yrs old Male presents to ER via Ambulatory with complaints of Fever, pm1 Neck Swelling. 16:59 The patient reports fever, that was measured at 101 degrees Fahrenheit. Onset: The pm1 symptoms/episode began/occurred last night. Modifying factors: there are no obvious modifying factors. Associated signs and symptoms: Pertinent positives: swelling, Pertinent negatives: chest pain, cough, diarrhea, shortness of breath, vomiting. Severity of symptoms: in the emergency department the symptoms are worse. abscess to right side of neck 6 months ago. Patient with fever and onset of swelling and redness to both sides of his neck. Patient with fever 101 last night and treated with antipyretics at home. Patient with history of throat cancer and tracheostomy . Historical: - Allergies: 09:27 Ampicillin; la1 09:27 Iodinated Contrast Media - IV Dye; la1 09:27 Iodine; la1 09:27 Levaquin; la1 - PMHx: 09:27 Asthma; COPD; THROAT CA; la1 - PSHx: 09:27 Appendectomy; trach x2; chest tube; laryngectomy; la1 - Immunization history:: Adult Immunizations up to date. - Social history:: Smoking status: Patient uses tobacco products, smokes one-half pack cigarettes per day. - Ebola Screening: : Patient denies exposure to infectious person Patient denies travel to an Ebola-affected area in the 21 days before illness onset. ROS: 16:59 Eyes: Negative for injury, pain, redness, and discharge, ENT: Negative for injury, pm1 pain, and discharge. 16:59 Cardiovascular: Negative for chest pain, palpitations, and edema, Respiratory: Negative for shortness of breath, cough, wheezing, and pleuritic chest pain, Abdomen/GI: Negative for abdominal pain, nausea, vomiting, diarrhea, and constipation, Back: Negative for injury and pain, MS/Extremity: Negative for injury and deformity, Neuro: Negative for headache, weakness, numbness, tingling, and seizure. 16:59 Constitutional: Positive for fever. 16:59 Neck: Positive for swelling, of the right lateral aspect of neck, right anterior aspect of neck, left lateral aspect of neck and left anterior aspect of neck, pain. 16:59 Skin: Positive for erythema, of the neck, Negative for abscesses. Exam: 16:59 Constitutional: This is a well developed, well nourished patient who is awake, alert, pm1 and in no acute distress. Head/Face: Normocephalic, atraumatic. Eyes: Pupils equal round and reactive to light, extra-ocular motions intact. Lids and lashes normal. Conjunctiva and sclera are non-icteric and not injected. Cornea within normal limits. Periorbital areas with no swelling, redness, or edema. 16:59 ENT: Nares patent. No nasal discharge, no septal abnormalities noted. Tympanic membranes are normal and external auditory canals are clear. Oropharynx with no redness, swelling, or masses, exudates, or evidence of obstruction, uvula midline. Mucous membranes moist. 16:59 Chest/axilla: Normal chest wall appearance and motion. Nontender with no deformity. No lesions are appreciated. Cardiovascular: Regular rate and rhythm with a normal S1 and S2. No gallops, murmurs, or rubs. Normal PMI, no JVD. No pulse deficits. Respiratory: Lungs have equal breath sounds bilaterally, clear to auscultation and percussion. No rales, rhonchi or wheezes noted. No increased work of breathing, no retractions or nasal flaring. Abdomen/GI: Soft, non-tender, with normal bowel sounds. No distension or tympany. No guarding or rebound. No evidence of tenderness throughout. Back: No spinal tenderness. No costovertebral tenderness. Full range of motion. 16:59 Neck: External neck: cellulitis, that is moderate, Anterior aspect of neck bilaterally to his clavicles. 16:59 Neuro: Orientation: is normal, Motor: is normal, moves all fours. Vital Signs: 09:25 BP 154 / 105; Pulse 89; Resp 17; Temp 98.1(TE); Pulse Ox 96% on R/A; Weight 86.18 kg; la1 Height 6 ft. 0 in. (182.88 cm); Pain 8/10; 10:30 BP 142 / 75; Pulse 77; Resp 20; Pulse Ox 96% on R/A; ph 11:42 BP 136 / 87; Pulse 78; Resp 18; Pulse Ox 95% on R/A; ph 12:30 BP 127 / 90; Pulse 79; Resp 18; Pulse Ox 95% on R/A; ph 13:50 BP 136 / 95; Pulse 87; Resp 20; Temp 97.8; Pulse Ox 96% on R/A; ph 09:25 Body Mass Index 25.77 (86.18 kg, 182.88 cm) la1 MDM: 10:17 Patient medically screened. pm1 11:09 ED course: electronic technician is familiar with patient and has given the patient pm1 multiple CT scans with IV contrast in the past for the cancer center. Patient's allergy to IV contrast is nausea. He does well if given benadryl and zofran prior to IV contrast CT. 12:34 Data reviewed: vital signs. Data interpreted: Pulse oximetry: on room air is 95 %. pm1 Interpretation: normal. Counseling: I had a detailed discussion with the patient and/or guardian regarding: the historical points, exam findings, and any diagnostic results supporting the discharge/admit diagnosis, lab results, radiology results, the need for further work-up and treatment in the hospital. 02/08 10:28 Order name: Basic Metabolic Panel; Complete Time: 14:07 pm1 02/08 10:28 Order name: Blood Culture Adult (2) pm1 02/08 10:28 Order name: CBC with Diff; Complete Time: 11:33 pm1 02/08 10:28 Order name: Lactate; Complete Time: 11:49 pm1 02/08 10:28 Order name: LFT's; Complete Time: 14:07 pm1 02/08 10:28 Order name: Procalcitonin; Complete Time: 12:57 pm1 02/08 10:28 Order name: Protime (+inr); Complete Time: 12:22 pm1 02/08 10:28 Order name: Ptt, Activated; Complete Time: 12:22 pm1 02/08 10:28 Order name: Chest Single View XRAY; Complete Time: 12:57 pm1 02/08 10:28 Order name: CT Soft Tissue Neck W/contr; Complete Time: 12:57 pm1 02/08 10:30 Order name: CT Chest W/ Con; Complete Time: 12:57 pm1 02/08 10:28 Order name: Labs collected and sent; Complete Time: 11:38 pm1 02/08 11:42 Order name: Labs - recollect needed; Complete Time: 12:02 eb Administered Medications: 11:12 Drug: NS 0.9% 1000 ml Route: IV; Rate: 1000 ml; Site: right forearm; ph 12:40 Follow up: Response: No adverse reaction; IV Intake: 1000ml ph 13:30 Follow up: Response: No adverse reaction; IV Status: Completed infusion; IV Intake: ph 1000ml 11:13 Drug: Zofran 4 mg Route: IVP; Site: right forearm; ph 12:39 Follow up: Response: No adverse reaction ph 11:15 Drug: morphine 4 mg Route: IVP; Site: right forearm; ph 11:45 Follow up: Response: No adverse reaction; Pain is decreased; RASS: Alert and Calm (0) ph 11:15 Drug: SOLU-Medrol 125 mg Route: IVP; Site: right forearm; ph 12:39 Follow up: Response: No adverse reaction ph 11:16 Drug: Benadryl 25 mg Route: IVP; Site: right forearm; ph 12:39 Follow up: Response: No adverse reaction ph 11:16 Drug: Pepcid 20 mg Route: IVP; Site: right forearm; ph 12:40 Follow up: Response: No adverse reaction ph 12:38 Drug: Nicotine 21 mg/24 hr 1 patches {Note: applied to R upper arm .} Route: ph Transdermal; Site: affected area; 12:40 Follow up: Response: No adverse reaction ph 13:16 Drug: vancoMYCIN 1 grams Route: IVPB; Infused Over: 2 hrs; Site: right forearm; ph 14:00 Follow up: Response: No adverse reaction; IV Status: Infusion continued upon admission ph 13:17 Drug: morphine 4 mg Route: IVP; Site: right forearm; ph 13:45 Follow up: Response: No adverse reaction; Pain is decreased; RASS: Alert and Calm (0) ph Disposition: 02/08/19 12:36 Hospitalization ordered by Rafael Mejia for Inpatient Admission. Preliminary diagnosis is Cellulitis of neck. - Bed requested for Telemetry/MedSurg (Inpatient). - Status is Inpatient Admission. ph - Condition is Stable. - Problem is new. - Symptoms have improved. UTI on Admission? No Addendum: 02/09/2019 16:43 Co-signature as Attending Physician, Sara Jeronimo MD. m a2 Signatures: Dispatcher [employer] EDMS Adeola Tidwell, RN RN dw Anthony Franklin RN RN la1 Tiny Varela, RN RN Cornell Sinclair, MASK DESIGN ENGINEER MASK DESIGN ENGINEER pm1 Sara Jeronimo MD MD [facility] Tran Buchanan Corrections: (The following items were deleted from the chart) 02/08 13:37 12:36 Hospitalization Ordered by Rafael Mejia MD for Inpatient Admission. dw Preliminary diagnosis is Cellulitis of neck. Bed requested for Telemetry/MedSurg (Inpatient). Status is Inpatient Admission. Condition is Stable. Problem is new. Symptoms have improved. UTI on Admission? No. pm1 14:58 13:37 02/08/2019 12:36 Hospitalization Ordered by Rafael Mejia MD for Inpatient ph Admission. Preliminary diagnosis is Cellulitis of neck. Bed requested for Telemetry/MedSurg (Inpatient). Status is Inpatient Admission. Condition is Stable. Problem is new. Symptoms have improved. UTI on Admission? No. dw
[2019-02-08] MEDS ORDERED: VANCOMYCIN/NS 1 gm 1 GM/250 ML BAG IV ONE (13:00)
[2019-02-08 13:04] LABS: ALT/SGPT 34 U/L (12-78); AST/SGOT 14 U/L (15-37); Albumin 3.2 g/dL (3.4-5.0); Alkaline Phosphatase 103 U/L (45-117); BUN Blood Urea Nitrogen 4 mg/dL (7-18); Bicarbonate 28 mmol/L (21-32); Bilirubin Direct 0.4 mg/dL (0-0.2); Bilirubin Total 1.1 mg/dL (0.2-1.0); Glucose Level 94 mg/dL (74-106); Potassium 3.8 mmol/L (3.5-5.1); Protein, Total 6.6 g/dL (6.4-8.2); Sodium Level 141 mmol/L (136-145)
[2019-02-08] MEDS ORDERED: IPRATROPIUM BROM 0.5MG/2.5ML ONE (13:41)
[2019-02-08] MEDS ORDERED: D5 0.9 NS 1,000 ML IV SCH (14:00)
[2019-02-08] MEDS ORDERED: IPRATROPIUM BROM 0.5MG/2.5ML NEB SCH (14:00)
[2019-02-08] MEDS ORDERED: NACHLORIDE 0.45% 1,000 ML IV SCH (14:00)
[2019-02-08] MEDS: Meropenem 1,000 MG in NA CHLORIDE 0.9% 100 ML IV SCH (16:07)
--- NOTE | 2019-02-08 16:38 | P.HP ---
Certification for Inpatient Patient admitted to: Observation With expected LOS: <2 Midnights Practitioner: I am a practitioner with admitting privileges, knowledge of patient current condition, hospital course, and medical plan of care. Services: Services provided to patient in accordance with Admission requirements found in Title 42 Section 412.3 of the Code of Federal Regulations Patient History Date of Service: 02/08/19 Reason for admission: Pains swelling and fever of the neck History of Present Illness: Patient is 48 years of age history of laryngectomy status post chemo and radiation therapy that was completed last year developed sudden onset of fever followed by pain and swelling on both sides of his neck is with in duration and tenderness denies any cough sputum hemoptysis no chest pain Allergies levofloxacin [From Levaquin] Allergy (Severe, Verified 08/29/18 18:09) Itching/Hives/Rash ampicillin Allergy (Verified 08/29/18 18:09) Itching/Hives/Rash iodine Allergy (Verified 02/08/19 15:32) Hives/Rash Home Medications: Escitalopram [Lexapro*] 20 mg PO DAILY 05/27/18 Levothyroxine Sodium [Levoxyl] 137 mcg PO DAILY 06/26/18 Guaifenesin [Mucinex] 100 mg PO BID 02/08/19 Hydrocodone Bit/Acetaminophen [Hydrocodon-Acetaminophn 10-325] 1 each PO TID 01/17 - Past Medical/Surgical History Has patient received pneumonia vaccine in the past: Yes Diabetic: No -: Asthma -: Depression -: Throat cancer status post complete laryngectomy/reconstruction 06/2018 -: Recurrent postop infection -: Chronic pain -: Former tobacco use -: Surgical hypothyroidism -: Tracheostomy -: Appendectomy -: Complete laryngectomy with reconstruction -: knee surgery bilateral knees -: Thyroidectomy Psychosocial/ Personal History: Patient is . He has 3 children. - Family History Father -: Heart disease, Diabetes Notes: agent orange: immobile Mother -: Cancer Notes: breast ca - Social History Smoking Status: Current every day smoker Alcohol use: Yes CD- Drugs: No Caffeine use: Yes Place of Residence: Home Review of Systems 10-point ROS is otherwise unremarkable Physical Examination - Vital Signs Temperature: 97.8 F Blood Pressure: 136/95 Pulse: 87 Respirations: 20 - Physical Exam General: Alert, In no apparent distress, Oriented x3 HEENT: Other (Years more induration on the right side of his neck compared to the left side there is no adenopathy the changes ABS observed with scarring on both sides of the neck) Respiratory: Clear to auscultation bilaterally Cardiovascular: No edema, Regular rate/rhythm, Normal S1 S2 Gastrointestinal: Normal bowel sounds, Soft and benign - Studies Laboratory Data (last 24 hrs) 02/08/19 12:37: Sodium 141, Potassium 3.8, BUN 4 L, Creatinine 0.72, Glucose 94 , Total Bilirubin 1.1 H, AST 14 L, ALT 34, Alkaline Phosphatase 103 02/08/19 12:01: PT 11.8, INR 1.00, APTT 32.1 02/08/19 11:10: WBC 8.1, Hgb 19.0 H, Hct 55.8 H, Plt Count 175 Assessment and Plan - Problems (Diagnosis) (1) Cellulitis and abscess of neck Current Visit: Yes Status: Acute Plan: Patient is 48 years of age status post laryngectomy last chemo radiation therapy was in 2018 developed sudden onset of fever with some in duration particularly worse on the right side of the neck complains of discomfort on both sides of his neck is with some swelling denies any other complaints the CT of neck : Moderate inflammatory changes within the fat adjacent to the right submandibular gland with mild changes on the left having the appearance of a cellulitis. A fluid-filled abscess is not seen. Patient is not impressive polycythemia still continues to smoke can eat and drink And a normal white count possible discharge tomorrow on a combination of 4 cephalosporin and doxycycline he is allergic to levofloxacin will treat him with meropenem also had p.o. doxycycline for Mr coverage vital signs stable - Advance Directives Does patient have a Living Will: Yes Does patient have a Durable POA for Healthcare: Yes
[2019-02-08 16:53] VITALS: BMI 25.7
[2019-02-08] MEDS ORDERED: Meropenem 1000 MG/VIAL IV SCH (17:00)
[2019-02-08] MEDS: HYDROCODONE/APAP 5/325 MG TAB PO PRN ×2 (17:02→23:08)
[2019-02-08] MEDS: MORPHINE 2 MG/ML SYR IV PRN ×2 (18:55→22:22)
--- NOTE | 2019-02-08 20:58 | P.PN ---
Subjective Date of Service: 02/08/19 Chief Complaint: Pains swelling and fever of the neck Physical Examination - Vital Signs Temperature: 97.8 F Blood Pressure: 136/95 Pulse: 87 Respirations: 20 Pulse Ox (%): 92 - Studies Laboratory Data (last 24 hrs) 02/08/19 12:37: Sodium 141, Potassium 3.8, BUN 4 L, Creatinine 0.72, Glucose 94 , Total Bilirubin 1.1 H, AST 14 L, ALT 34, Alkaline Phosphatase 103 02/08/19 12:01: PT 11.8, INR 1.00, APTT 32.1 02/08/19 11:10: WBC 8.1, Hgb 19.0 H, Hct 55.8 H, Plt Count 175 Assessment & Plan Physician Review Additional Text: Impression: Fever, pain to the neck secondary to cellulitis to the area of the right submandibular gland complicated with history of throat cancer/laryngectomy/chemo /radiation HTN Surgical Hypothyroidism Depression Former tobacco abuse Fatty liver Polycythemia
[2019-02-08] MEDS: DOXYCYCLINE 100 MG in NA CHLORIDE 0.9% 100 ML IVPB SCH (21:22)
[2019-02-08] MEDS: GUAIFENESIN 600 MG SA TAB PO PRN (22:21)
[2019-02-09] MEDS: Meropenem 1,000 MG in NA CHLORIDE 0.9% 100 ML IV SCH ×2 (01:00→10:39)
[2019-02-09] MEDS: MORPHINE 2 MG/ML SYR IV PRN ×3 (05:52→14:32)
[2019-02-09 06:06] LABS: Absolute Lymphocytes (CBC) 0.6 K/uL (0.7-4.9); Basophils % 0.3 % (0-1.3); Hematocrit 49.5 % (39.6-49.0); Lymphocytes % 5.7 % (15.3-44.8); MPV 8.6 fL (7.6-11.3); RBC Red Blood Cell Count 5.03 M/uL (4.33-5.43)
[2019-02-09] MEDS ORDERED: LEVOTHYROXINE SOD 0.112 MG TAB PO SCH (06:30)
[2019-02-09] MEDS ORDERED: LEVOTHYROXINE SOD 0.025 MG TAB PO SCH (06:30)
[2019-02-09 06:38] LABS: ALT/SGPT 28 U/L (12-78); AST/SGOT 11 U/L (15-37); Albumin 2.9 g/dL (3.4-5.0); Alkaline Phosphatase 93 U/L (45-117); BUN Blood Urea Nitrogen 4 mg/dL (7-18); Bicarbonate 28 mmol/L (21-32); Bilirubin Total 0.5 mg/dL (0.2-1.0); Glucose Level 143 mg/dL (74-106); Potassium 4.1 mmol/L (3.5-5.1); Protein, Total 6.2 g/dL (6.4-8.2); Sodium Level 142 mmol/L (136-145)
--- OUTSIDE RECORDS SUMMARY | 2019-02-09 07:03 | XMS REPORT ---
[...] End Status Dosage System Date Date Hydrocodone-Acet [facility] 34352144784 10-325 MG Active 1 tablet aminophen Orally every 6 as needed hrs Citalopram [facility] 51513491940 20 MG Orally Active 1 tablet Hydrobromide Once a day Xanax [facility] [address]-65 1 MG Orally Active 1 tablet Once a day Zofran [facility] [address]-28 8 MG Orally Active 1 tablet Twice a day PRN Results No Known Results Summary Purpose eClinicalWorks Submission
--- OUTSIDE RECORDS SUMMARY | 2019-02-09 07:03 | XMS REPORT ---
[...] Status Dosage System Date Date BuPROPion HCl [facility] 59892391814 150 MG Orally Dec 16, Active 1 tablet ER (Smoking Once a day 2018 in the Det) morning Xanax [facility] 60192715847 1 MG Orally Once Active 1 tablet a day Zofran ND 68016688226 8 MG Orally Active 1 tablet Twice a day PRN Hydrocodone-Ac ND 48961030471 10-325 MG Orally Active 1 tablet etaminophen every 6 hrs as needed Results No Known Results Summary Purpose eClinicalWorks Submission
--- OUTSIDE RECORDS SUMMARY | 2019-02-09 07:03 | XMS REPORT ---
[...] Status Dosage System Date Date BuPROPion HCl [facility] 90043209645 150 MG Orally Dec 16, Active 1 tablet ER (Smoking Once a day 2018 in the Det) morning Xanax [facility] 25334378794 1 MG Orally Active 1 tablet Once a day Zofran ND 70754905501 8 MG Orally Active 1 tablet Twice a day PRN Hydrocodone-Ari ND 85712528980 10-325 MG Active 1 tablet taminophen Orally every 6 as needed hrs Citalopram ND 66596377955 20 MG Orally Inactive 1 tablet Hydrobromide Once a day Results No Known Results Summary Purpose eClinicalWorks Submission
--- OUTSIDE RECORDS SUMMARY | 2019-02-09 07:05 | XMS REPORT ---
:1970 [facility] Pasquale Topete [address] [place] [address] Care Team Providers Name Role Phone JENNIFER [...] Comments CREATININE (BEAKER) (test 0.63 mg/dL 0.57-1.25 rhuo=272) EGFR (BEAKER) (test 136 mL/min/1.73 sq m ESTIMATED GFR IS NOT uqmy=0925) ACCURATE CREATININE CLEARANCE IN PREDICTING GLOMERULAR FILTRATION RATE. ESTIMATED GFR IS NOT APPLICABLE FOR DIALYSIS PATIENTS. WOUND CULTURE + GRAM [id number] 16:32:00 Test Item Value Reference Range Comments CULTURE (BEAKER) (test No growth fkkm=4060) GRAM STAIN RESULT (BEAKER) 2+ WBCs (test tmbj=9889) GRAM STAIN RESULT (BEAKER) 1+ gram positive cocci in (test sqff=96057) pairs GRAM STAIN RESULT (BEAKER) <1+ gram variable rods (test ylhj=86121) VANCOMYCIN LEVEL, [id number] 23:37:00 Test Item Value Reference Range Comments VANCOMYCIN TROUGH (BEAKER) (test ygvn=850) 7.5 ug/mL 10.0-20.0 FL, ESOPH, SWALLOW FUNCTION, WITH CINE OR [id number] 18:19:00Cervical esophagram with GASTROGAFFINReason for exam:->status post [...] MDReport Verified Date/Time: 08/12/2018 18:19:29 Reading Location: [place] [id number] Ortho Consult Reading Room CBC W/PLT COUNT & AUTO [id number] 04: 39:00 Test Item Value Reference Range Comments WHITE BLOOD CELL COUNT (BEAKER) (test aqmr=190) 7.1 K/ L 3.5-10.5 RED BLOOD CELL COUNT (BEAKER) (test byye=230) 3.77 M/ L 4.63-6.08 HEMOGLOBIN (BEAKER) (test ztya=738) 10.9 GM/DL 13.7-17.5 HEMATOCRIT (BEAKER) (test cdai=506) 35.7 % 40.1-51.0 MEAN CORPUSCULAR VOLUME (BEAKER) (test gbtc=779) 94.7 fL 79.0-92.2 MEAN CORPUSCULAR HEMOGLOBIN (BEAKER) (test 28.9 pg 25.7-32.2 tfju=518) MEAN CORPUSCULAR HEMOGLOBIN CONC (BEAKER) (test 30.5 GM/DL 32.3-36.5 aljj=704) RED CELL DISTRIBUTION WIDTH (BEAKER) (test 14.6 % 11.6-14.4 tljh=098) PLATELET COUNT (BEAKER) (test gmje=461) 318 K/CU MM 150-450 MEAN PLATELET VOLUME (BEAKER) (test izts=588) 9.8 fL 9.4-12.4 NUCLEATED RED BLOOD CELLS (BEAKER) (test 0 /100 WBC 0-0 pfpe=320) NEUTROPHILS RELATIVE PERCENT (BEAKER) (test 72 % rcwy=146) LYMPHOCYTES RELATIVE PERCENT (BEAKER) (test 10 % crao=582) MONOCYTES RELATIVE PERCENT (BEAKER) (test 12 % hsqj=501) EOSINOPHILS RELATIVE PERCENT (BEAKER) (test 4 % xfed=282) BASOPHILS RELATIVE PERCENT (BEAKER) (test 1 % olfk=301) NEUTROPHILS ABSOLUTE COUNT (BEAKER) (test 5.08 K/ L 1.78-5.38 fpvv=643) LYMPHOCYTES ABSOLUTE COUNT (BEAKER) (test 0.68 K/ L 1.32-3.57 zjvc=270) MONOCYTES ABSOLUTE COUNT (BEAKER) (test 0.86 K/ L 0.30-0.82 yuge=937) EOSINOPHILS ABSOLUTE COUNT (BEAKER) (test 0.29 K/ L 0.04-0.54 xqwm=002) BASOPHILS ABSOLUTE COUNT (BEAKER) (test 0.04 K/ L 0.01-0.08 iaqf=422) IMMATURE GRANULOCYTES-RELATIVE PERCENT (BEAKER) 1 % 0-1 (test pzuw=9444) TSH/FREE T4 IF [id number] 18:11:00 Test Item Value Reference Range Comments THYROID STIMULATING HORMONE (BEAKER) (test 0.75 uIU/mL 0.35-4.94 gwsj=438) CBC W/PLT COUNT & AUTO [id number] 17:31:00 Test Item Value Reference Range Comments WHITE BLOOD CELL COUNT (BEAKER) (test hmzq=231) 9.2 K/ L 3.5-10.5 RED BLOOD CELL COUNT (BEAKER) (test muoe=014) 3.78 M/ L 4.63-6.08 HEMOGLOBIN (BEAKER) (test nkxf=075) 11.0 GM/DL 13.7-17.5 HEMATOCRIT (BEAKER) (test zreb=601) 35.4 % 40.1-51.0 MEAN CORPUSCULAR VOLUME (BEAKER) (test boho=702) 93.7 fL 79.0-92.2 MEAN CORPUSCULAR HEMOGLOBIN (BEAKER) (test 29.1 pg 25.7-32.2 fnek=946) MEAN CORPUSCULAR HEMOGLOBIN CONC (BEAKER) (test 31.1 GM/DL 32.3-36.5 vtxe=106) RED CELL DISTRIBUTION WIDTH (BEAKER) (test 14.7 % 11.6-14.4 siwl=075) PLATELET COUNT (BEAKER) (test hcoa=405) 323 K/CU MM 150-450 MEAN PLATELET VOLUME (BEAKER) (test ulwc=768) 9.6 fL 9.4-12.4 NUCLEATED RED BLOOD CELLS (BEAKER) (test 0 /100 WBC 0-0 trqf=740) NEUTROPHILS RELATIVE PERCENT (BEAKER) (test 75 % dbin=592) LYMPHOCYTES RELATIVE PERCENT (BEAKER) (test 9 % qian=666) MONOCYTES RELATIVE PERCENT (BEAKER) (test 12 % tgbk=234) EOSINOPHILS RELATIVE PERCENT (BEAKER) (test 3 % ckvy=609) BASOPHILS RELATIVE PERCENT (BEAKER) (test 0 % atpa=427) NEUTROPHILS ABSOLUTE COUNT (BEAKER) (test 6.86 K/ L 1.78-5.38 kuyv=410) LYMPHOCYTES ABSOLUTE COUNT (BEAKER) (test 0.81 K/ L 1.32-3.57 fkol=226) MONOCYTES ABSOLUTE COUNT (BEAKER) (test 1.13 K/ L 0.30-0.82 hlxk=612) EOSINOPHILS ABSOLUTE COUNT (BEAKER) (test 0.24 K/ L 0.04-0.54 poge=189) BASOPHILS ABSOLUTE COUNT (BEAKER) (test 0.04 K/ L 0.01-0.08 vdfy=192) IMMATURE GRANULOCYTES-RELATIVE PERCENT (BEAKER) 1 % 0-1 (test vokh=9469) TISSUE [id number] 10:26:00Surgical Pathology Report Case: [id number] Authorizing Provider: Jennifer Fraire MD Collected: 07/14/2018 1023 Ordering Location: [facility] Received: 07/14/2018 1029 SERVICES Pathologist: Jackie [...] cannot be determined from the submitted specimen(s) 40077 X3 , 59375, 85918, 81664 X2, 99760 X 4, 26826 x1, 56840 [id number] 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 Vehicle Safety Inspector sections are submitted as follows: C6 - [...] shows ulcer and granulation tissue. On C19, [place]-8 positivity confirms portion of thyroidtissue present. On [...] stains. Immunohistochemistry technical testing was performed at [facility], Pathology Laboratory where it was [...] clinical laboratory testing.CBC W/PLT COUNT & AUTO [id number] 09:34:00 Test Item Value Reference Range Comments WHITE BLOOD CELL COUNT (BEAKER) (test jxco=302) 10.8 K/ L 3.5-10.5 RED BLOOD CELL COUNT (BEAKER) (test tagn=192) 3.45 M/ L 4.63-6.08 HEMOGLOBIN (BEAKER) (test tgus=082) 10.2 GM/DL 13.7-17.5 HEMATOCRIT (BEAKER) (test kbtq=260) 34.1 % 40.1-51.0 MEAN CORPUSCULAR VOLUME (BEAKER) (test qpba=922) 98.8 fL 79.0-92.2 MEAN CORPUSCULAR HEMOGLOBIN (BEAKER) (test 29.6 pg 25.7-32.2 tcod=080) MEAN CORPUSCULAR HEMOGLOBIN CONC (BEAKER) (test 29.9 GM/DL 32.3-36.5 rgqd=295) RED CELL DISTRIBUTION WIDTH (BEAKER) (test 15.7 % 11.6-14.4 hldo=411) PLATELET COUNT (BEAKER) (test knch=279) 522 K/CU MM 150-450 MEAN PLATELET VOLUME (BEAKER) (test encf=122) 10.2 fL 9.4-12.4 NUCLEATED RED BLOOD CELLS (BEAKER) (test 0 /100 WBC 0-0 fakf=838) (CELLAVISION MANUAL DIFF)2018-07-24 09:34:00 Test Item Value Reference Range Comments NEUTROPHILS - REL (CELLAVISION)(BEAKER) (test 80 % txfc=0774) LYMPHOCYTES - REL (CELLAVISION)(BEAKER) (test 2 % mdzs=5815) MONOCYTES - REL (CELLAVISION)(BEAKER) (test 15 % ybvf=1054) EOSINOPHILS - REL (CELLAVISION)(BEAKER) (test 3 % acrw=9220) NEUTROPHILS - ABS (CELLAVISION)(BEAKER) (test 8.64 K/ul 1.78-5.38 clwv=1971) LYMPHOCYTES - ABS (CELLAVISION)(BEAKER) (test 0.22 K/ul 1.32-3.57 mjtk=5260) MONOCYTES - ABS (CELLAVISION)(BEAKER) (test 1.62 K/uL 0.30-0.82 nghw=8098) EOSINOPHILS - ABS (CELLAVISION)(BEAKER) (test 0.32 K/uL 0.04-0.54 edth=7350) TOTAL COUNTED (BEAKER) (test jjxd=1196) 100 WBC MORPHOLOGY (BEAKER) (test yewo=927) Normal LARGE PLT(BEAKER) (test sqhm=7248) Present POLYCHROMATOPHILLIC RBCS(BEAKER) (test vtva=859) 1+ few ARTIFACT (CELLAVISION)(BEAKER) (test cxwp=9821) Present PLATELET CONCENTRATION (CELLAVISION)(BEAKER) (test Increased oket=3275) Received comment: User comments: Slide comments:[id number] 05:40:00 Test Item Value Reference Range Comments PHOSPHORUS (BEAKER) (test urvb=921) 4.8 mg/dL 2.3-4.7 [id number] 05:40:00 Test Item Value Reference Range Comments MAGNESIUM (BEAKER) (test yavw=342) 2.1 mg/dL 1.6-2.6 BASIC METABOLIC [id number] 05:40:00 Test Item Value Reference Range Comments SODIUM (BEAKER) (test 140 meq/L 136-145 wzfe=056) POTASSIUM (BEAKER) (test 4.0 meq/L 3.5-5.1 zjkd=572) CHLORIDE (BEAKER) (test 99 meq/L 98-107 fcoq=599) CO2 (BEAKER) (test 30 meq/L 22-29 upfr=002) BLOOD UREA NITROGEN 8 mg/dL 7-21 (BEAKER) (test axpk=062) CREATININE (BEAKER) (test 0.71 mg/dL 0.57-1.25 okjd=810) GLUCOSE RANDOM (BEAKER) 90 mg/dL 70-105 (test itxn=631) CALCIUM (BEAKER) (test 8.8 mg/dL 8.4-10.2 jman=393) EGFR (BEAKER) (test 118 mL/min/1.73 sq m ESTIMATED GFR IS NOT czdv=5754) ACCURATE CREATININE CLEARANCE IN PREDICTING GLOMERULAR FILTRATION RATE. ESTIMATED GFR IS NOT APPLICABLE FOR DIALYSIS PATIENTS. CBC W/PLT COUNT & AUTO [id number] 11:50:00 Test Item Value Reference Range Comments WHITE BLOOD CELL COUNT (BEAKER) (test drhd=128) 13.2 K/ L 3.5-10.5 RED BLOOD CELL COUNT (BEAKER) (test pfaa=643) 3.41 M/ L 4.63-6.08 HEMOGLOBIN (BEAKER) (test kmmb=200) 10.2 GM/DL 13.7-17.5 HEMATOCRIT (BEAKER) (test ghod=574) 33.2 % 40.1-51.0 MEAN CORPUSCULAR VOLUME (BEAKER) (test doab=403) 97.4 fL 79.0-92.2 MEAN CORPUSCULAR HEMOGLOBIN (BEAKER) (test 29.9 pg 25.7-32.2 okqx=197) MEAN CORPUSCULAR HEMOGLOBIN CONC (BEAKER) (test 30.7 GM/DL 32.3-36.5 ivvo=446) RED CELL DISTRIBUTION WIDTH (BEAKER) (test 15.5 % 11.6-14.4 fgoa=036) PLATELET COUNT (BEAKER) (test clvd=157) 473 K/CU MM 150-450 MEAN PLATELET VOLUME (BEAKER) (test ibpy=484) 10.0 fL 9.4-12.4 NUCLEATED RED BLOOD CELLS (BEAKER) (test 0 /100 WBC 0-0 odio=162) (CELLAVISION MANUAL DIFF)2018-07-23 11:50:00 Test Item Value Reference Range Comments NEUTROPHILS - REL (CELLAVISION)(BEAKER) (test 80 % ugkv=1893) LYMPHOCYTES - REL (CELLAVISION)(BEAKER) (test 8 % jvsy=9981) MONOCYTES - REL (CELLAVISION)(BEAKER) (test 4 % onga=8578) EOSINOPHILS - REL (CELLAVISION)(BEAKER) (test 1 % ppdg=0960) MYELOCYTES - REL (CELLAVISION)(BEAKER) (test 2 % 0-0 opva=6836) BANDS - REL (CELLAVISION)(BEAKER) (test 4 % 0-10 hfao=5657) NEUTROPHILS - ABS (CELLAVISION)(BEAKER) (test 10.56 K/ul 1.78-5.38 rvub=1897) LYMPHOCYTES - ABS (CELLAVISION)(BEAKER) (test 1.06 K/ul 1.32-3.57 wntd=0745) MONOCYTES - ABS (CELLAVISION)(BEAKER) (test 0.53 K/uL 0.30-0.82 ffal=9965) EOSINOPHILS - ABS (CELLAVISION)(BEAKER) (test 0.13 K/uL 0.04-0.54 yznz=7919) MYELOCYTES-ABS (CELLAVISION)(BEAKER) (test 0.26 K/uL 0.00-0.00 nljb=3541) BANDS - ABS (CELLAVISION)(BEAKER) (test 0.53 K/uL 0.00-0.80 udxr=7899) TOTAL COUNTED (BEAKER) (test vvxq=3672) 100 WBC MORPHOLOGY (BEAKER) (test kxhi=573) Normal PLT MORPHOLOGY (BEAKER) (test hcss=308) Normal ANISOCYTOSIS (BEAKER) (test vjdj=029) 2+ moderate MICROCYTES (BEAKER) (test ernx=606) 1+ few ARTIFACT (CELLAVISION)(BEAKER) (test tcxl=7201) Present PLATELET CONCENTRATION (CELLAVISION)(BEAKER) Increased (test yscl=1149) Received comment: User comments: Slide comments:SPUTUM CULTURE + GRAM [id number] 10:46:00 Test Item Value Reference Range Comments CULTURE (BEAKER) (test <1+ Normal respiratory maximo yqkc=7270) present GRAM STAIN RESULT (BEAKER) <1+ White blood cells seen (test uahk=9356) GRAM STAIN RESULT (BEAKER) 0-5 epithelial cells (test cvfq=76241) GRAM STAIN RESULT (BEAKER) No organisms seen (test irwd=18433) [id number] 06:07:00 Test Item Value Reference Range Comments PHOSPHORUS (BEAKER) (test pshw=727) 4.6 mg/dL 2.3-4.7 [id number] 06:07:00 Test Item Value Reference Range Comments MAGNESIUM (BEAKER) (test pzwl=397) 2.0 mg/dL 1.6-2.6 BASIC METABOLIC [id number] 06:07:00 Test Item Value Reference Range Comments SODIUM (BEAKER) (test 140 meq/L 136-145 uuch=334) POTASSIUM (BEAKER) (test 4.3 meq/L 3.5-5.1 udmc=068) CHLORIDE (BEAKER) (test 101 meq/L 98-107 mwxz=696) CO2 (BEAKER) (test 31 meq/L 22-29 alqm=917) BLOOD UREA NITROGEN 10 mg/dL 7-21 (BEAKER) (test tivt=276) CREATININE (BEAKER) (test 0.67 mg/dL 0.57-1.25 olsc=995) GLUCOSE RANDOM (BEAKER) 111 mg/dL 70-105 (test jupj=890) CALCIUM (BEAKER) (test 8.7 mg/dL 8.4-10.2 vvhd=233) EGFR (BEAKER) (test 127 mL/min/1.73 sq m ESTIMATED GFR IS NOT zilu=0635) ACCURATE CREATININE CLEARANCE IN PREDICTING GLOMERULAR FILTRATION RATE. ESTIMATED GFR IS NOT APPLICABLE FOR DIALYSIS PATIENTS. VANCOMYCIN LEVEL, [id number] 23:12:00 Test Item Value Reference Range Comments VANCOMYCIN TROUGH (BEAKER) (test rrev=435) 3.2 ug/mL 10.0-20.0 POCT-GLUCOSE [id number] 17:57:00 Test Item Value Reference Range Comments POC-GLUCOSE METER (BEAKER) 105 mg/dL 70-110 TESTED AT [address] (test tzga=7034) [facility] [address] CBC W/PLT COUNT & AUTO [id number] 13:00:00 Test Item Value Reference Range Comments WHITE BLOOD CELL COUNT (BEAKER) (test qkrm=879) 12.5 K/ L 3.5-10.5 RED BLOOD CELL COUNT (BEAKER) (test eyzb=195) 3.46 M/ L 4.63-6.08 HEMOGLOBIN (BEAKER) (test sabh=344) 10.4 GM/DL 13.7-17.5 HEMATOCRIT (BEAKER) (test swfd=099) 33.5 % 40.1-51.0 MEAN CORPUSCULAR VOLUME (BEAKER) (test wieo=793) 96.8 fL 79.0-92.2 MEAN CORPUSCULAR HEMOGLOBIN (BEAKER) (test 30.1 pg 25.7-32.2 tkce=319) MEAN CORPUSCULAR HEMOGLOBIN CONC (BEAKER) (test 31.0 GM/DL 32.3-36.5 xwag=736) RED CELL DISTRIBUTION WIDTH (BEAKER) (test 15.4 % 11.6-14.4 vwar=370) PLATELET COUNT (BEAKER) (test ikmz=638) 425 K/CU MM 150-450 MEAN PLATELET VOLUME (BEAKER) (test rjkr=894) 10.1 fL 9.4-12.4 NUCLEATED RED BLOOD CELLS (BEAKER) (test 0 /100 WBC 0-0 nbcw=602) (CELLAVISION MANUAL DIFF)2018-07-22 13:00:00 Test Item Value Reference Range Comments NEUTROPHILS - REL (CELLAVISION)(BEAKER) (test 80 % bohz=0598) LYMPHOCYTES - REL (CELLAVISION)(BEAKER) (test 4 % ervr=5169) MONOCYTES - REL (CELLAVISION)(BEAKER) (test 6 % zvid=3769) EOSINOPHILS - REL (CELLAVISION)(BEAKER) (test 6 % jacn=8657) BASOPHILS - REL (CELLAVISION)(BEAKER) (test 1 % iwht=7164) MYELOCYTES - REL (CELLAVISION)(BEAKER) (test 3 % 0-0 innb=4847) NEUTROPHILS - ABS (CELLAVISION)(BEAKER) (test 10.00 K/ul 1.78-5.38 mrud=6783) LYMPHOCYTES - ABS (CELLAVISION)(BEAKER) (test 0.50 K/ul 1.32-3.57 nyqd=3087) MONOCYTES - ABS (CELLAVISION)(BEAKER) (test 0.75 K/uL 0.30-0.82 tvsl=3289) EOSINOPHILS - ABS (CELLAVISION)(BEAKER) (test 0.75 K/uL 0.04-0.54 mbxm=7766) BASOPHILS - ABS (CELLAVISION)(BEAKER) (test 0.13 K/uL 0.01-0.08 gwwe=1925) MYELOCYTES-ABS (CELLAVISION)(BEAKER) (test 0.38 K/uL 0.00-0.00 neuz=4386) TOTAL COUNTED (BEAKER) (test ckvw=3472) 100 WBC MORPHOLOGY (BEAKER) (test gudj=714) Normal PLT MORPHOLOGY (BEAKER) (test hbwc=524) Normal POLYCHROMATOPHILLIC RBCS(BEAKER) (test dpwe=630) 1+ few ANISOCYTOSIS (BEAKER) (test xljv=028) 1+ few MACROCYTES (BEAKER) (test sagr=578) 1+ few POIKILOCYTES (BEAKER) (test ncju=692) 2+ moderate ARTIFACT (CELLAVISION)(BEAKER) (test ygfp=1817) Present PLATELET CONCENTRATION (CELLAVISION)(BEAKER) Adequate (test jnkl=5440) Received comment: User comments: Slide comments:POCT-GLUCOSE [id number] 12: 50:00 Test Item Value Reference Range Comments POC-GLUCOSE METER (BEAKER) 117 mg/dL 70-110 TESTED AT [facility] [address] [facility] (test btty=7714) [facility] [address] [id number] 07:00:00 Test Item Value Reference Range Comments PHOSPHORUS (BEAKER) (test pxrs=719) 4.2 mg/dL 2.3-4.7 [id number] 07:00:00 Test Item Value Reference Range Comments MAGNESIUM (BEAKER) (test wkfb=765) 1.9 mg/dL 1.6-2.6 BASIC METABOLIC [id number] 07:00:00 Test Item Value Reference Range Comments SODIUM (BEAKER) (test 140 meq/L 136-145 lsou=158) POTASSIUM (BEAKER) (test 4.0 meq/L 3.5-5.1 pkpp=060) CHLORIDE (BEAKER) (test 101 meq/L 98-107 hbrh=307) CO2 (BEAKER) (test 32 meq/L 22-29 avwq=232) BLOOD UREA NITROGEN 9 mg/dL 7-21 (BEAKER) (test ydqk=780) CREATININE (BEAKER) (test 0.62 mg/dL 0.57-1.25 hkdb=211) GLUCOSE RANDOM (BEAKER) 104 mg/dL 70-105 (test boqk=532) CALCIUM (BEAKER) (test 8.4 mg/dL 8.4-10.2 qfak=884) EGFR (BEAKER) (test 138 mL/min/1.73 sq m ESTIMATED GFR IS NOT wdag=6962) ACCURATE CREATININE CLEARANCE IN PREDICTING GLOMERULAR FILTRATION RATE. ESTIMATED GFR IS NOT APPLICABLE FOR DIALYSIS PATIENTS. CBC W/PLT COUNT & AUTO [id number] 10:11:00 Test Item Value Reference Range Comments WHITE BLOOD CELL COUNT (BEAKER) (test dxkg=659) 10.8 K/ L 3.5-10.5 RED BLOOD CELL COUNT (BEAKER) (test sojy=173) 3.48 M/ L 4.63-6.08 HEMOGLOBIN (BEAKER) (test tbdb=946) 10.6 GM/DL 13.7-17.5 HEMATOCRIT (BEAKER) (test tgsh=587) 33.9 % 40.1-51.0 MEAN CORPUSCULAR VOLUME (BEAKER) (test nxyu=265) 97.4 fL 79.0-92.2 MEAN CORPUSCULAR HEMOGLOBIN (BEAKER) (test 30.5 pg 25.7-32.2 lrad=551) MEAN CORPUSCULAR HEMOGLOBIN CONC (BEAKER) (test 31.3 GM/DL 32.3-36.5 sprs=449) RED CELL DISTRIBUTION WIDTH (BEAKER) (test 15.4 % 11.6-14.4 syln=462) PLATELET COUNT (BEAKER) (test uetl=893) 431 K/CU MM 150-450 MEAN PLATELET VOLUME (BEAKER) (test hwni=172) 10.0 fL 9.4-12.4 NUCLEATED RED BLOOD CELLS (BEAKER) (test 0 /100 WBC 0-0 pldj=712) (CELLAVISION MANUAL DIFF)2018-07-21 10:11:00 Test Item Value Reference Range Comments NEUTROPHILS - REL (CELLAVISION)(BEAKER) (test 77 % sbqt=7655) LYMPHOCYTES - REL (CELLAVISION)(BEAKER) (test 3 % jcow=2531) MONOCYTES - REL (CELLAVISION)(BEAKER) (test 7 % ikxp=7902) EOSINOPHILS - REL (CELLAVISION)(BEAKER) (test 3 % lfiz=2156) MYELOCYTES - REL (CELLAVISION)(BEAKER) (test 4 % 0-0 eoyo=3175) PROMYELOCYTES - REL (CELLAVSION)(BEAKER) (test 1 % 0-0 whyq=1331) BANDS - REL (CELLAVISION)(BEAKER) (test 5 % 0-10 zitq=8670) NEUTROPHILS - ABS (CELLAVISION)(BEAKER) (test 8.32 K/ul 1.78-5.38 guiy=2864) LYMPHOCYTES - ABS (CELLAVISION)(BEAKER) (test 0.32 K/ul 1.32-3.57 lvbg=2143) MONOCYTES - ABS (CELLAVISION)(BEAKER) (test 0.76 K/uL 0.30-0.82 ordt=7671) EOSINOPHILS - ABS (CELLAVISION)(BEAKER) (test 0.32 K/uL 0.04-0.54 ajho=1907) MYELOCYTES-ABS (CELLAVISION)(BEAKER) (test 0.43 K/uL 0.00-0.00 wtfh=8753) PROMYELOCYTES - ABS (CELLAVISION)(BEAKER) (test 0.11 K/uL 0.00-0.00 ttvf=2250) BANDS - ABS (CELLAVISION)(BEAKER) (test 0.54 K/uL 0.00-0.80 hlio=8414) TOTAL COUNTED (BEAKER) (test apig=4855) 100 WBC MORPHOLOGY (BEAKER) (test jbwn=477) Normal PLT MORPHOLOGY (BEAKER) (test iexl=810) Normal ANISOCYTOSIS (BEAKER) (test tcjq=598) 2+ moderate MICROCYTES (BEAKER) (test ntjo=841) 2+ moderate ARTIFACT (CELLAVISION)(BEAKER) (test cdgb=6113) Present PLATELET CONCENTRATION (CELLAVISION)(BEAKER) Adequate (test ocvm=7218) Received comment: User comments: Slide comments:[id number] 05:39:00 Test Item Value Reference Range Comments PHOSPHORUS (BEAKER) (test quoc=601) 5.1 mg/dL 2.3-4.7 [id number] 05:39:00 Test Item Value Reference Range Comments MAGNESIUM (BEAKER) (test isem=755) 2.0 mg/dL 1.6-2.6 BASIC METABOLIC [id number] 05:39:00 Test Item Value Reference Range Comments SODIUM (BEAKER) (test 139 meq/L 136-145 abnx=501) POTASSIUM (BEAKER) (test 4.3 meq/L 3.5-5.1 cwsh=507) CHLORIDE (BEAKER) (test 100 meq/L 98-107 drno=698) CO2 (BEAKER) (test 29 meq/L 22-29 oeex=847) BLOOD UREA NITROGEN 10 mg/dL 7-21 (BEAKER) (test bcto=151) CREATININE (BEAKER) (test 0.64 mg/dL 0.57-1.25 xhdi=323) GLUCOSE RANDOM (BEAKER) 97 mg/dL 70-105 (test umpu=034) CALCIUM (BEAKER) (test 8.6 mg/dL 8.4-10.2 mhbu=557) EGFR (BEAKER) (test 133 mL/min/1.73 sq m ESTIMATED GFR IS NOT cbsd=9745) ACCURATE CREATININE CLEARANCE IN PREDICTING GLOMERULAR FILTRATION RATE. ESTIMATED GFR IS NOT APPLICABLE FOR DIALYSIS PATIENTS. VANCOMYCIN LEVEL, [id number] 23:38:00 Test Item Value Reference Range Comments VANCOMYCIN TROUGH (BEAKER) (test vrny=048) 5.5 ug/mL 10.0-20.0 CBC W/PLT COUNT & AUTO [id number] 10:44:00 Test Item Value Reference Range Comments WHITE BLOOD CELL COUNT (BEAKER) (test horw=175) 14.3 K/ L 3.5-10.5 RED BLOOD CELL COUNT (BEAKER) (test drno=587) 3.43 M/ L 4.63-6.08 HEMOGLOBIN (BEAKER) (test qubu=807) 10.4 GM/DL 13.7-17.5 HEMATOCRIT (BEAKER) (test wvzi=565) 33.5 % 40.1-51.0 MEAN CORPUSCULAR VOLUME (BEAKER) (test oocg=797) 97.7 fL 79.0-92.2 MEAN CORPUSCULAR HEMOGLOBIN (BEAKER) (test 30.3 pg 25.7-32.2 gvsc=758) MEAN CORPUSCULAR HEMOGLOBIN CONC (BEAKER) (test 31.0 GM/DL 32.3-36.5 svgw=639) RED CELL DISTRIBUTION WIDTH (BEAKER) (test 15.7 % 11.6-14.4 shpz=633) PLATELET COUNT (BEAKER) (test iofy=155) 402 K/CU MM 150-450 MEAN PLATELET VOLUME (BEAKER) (test vzxz=619) 10.6 fL 9.4-12.4 NUCLEATED RED BLOOD CELLS (BEAKER) (test 0 /100 WBC 0-0 kztd=973) (CELLAVISION MANUAL DIFF)[id number] 10:44:00 Test Item Value Reference Range Comments NEUTROPHILS - REL (CELLAVISION)(BEAKER) (test 83 % apia=3175) LYMPHOCYTES - REL (CELLAVISION)(BEAKER) (test 2 % tjnq=1114) MONOCYTES - REL (CELLAVISION)(BEAKER) (test 9 % vugw=7004) EOSINOPHILS - REL (CELLAVISION)(BEAKER) (test 3 % jeiz=1658) MYELOCYTES - REL (CELLAVISION)(BEAKER) (test 1 % 0-0 grjb=7816) BANDS - REL (CELLAVISION)(BEAKER) (test 2 % 0-10 sacs=6947) NEUTROPHILS - ABS (CELLAVISION)(BEAKER) (test 11.87 K/ul 1.78-5.38 xfrr=4929) LYMPHOCYTES - ABS (CELLAVISION)(BEAKER) (test 0.29 K/ul 1.32-3.57 ntqx=5742) MONOCYTES - ABS (CELLAVISION)(BEAKER) (test 1.29 K/uL 0.30-0.82 dtqp=4555) EOSINOPHILS - ABS (CELLAVISION)(BEAKER) (test 0.43 K/uL 0.04-0.54 jmeo=0670) MYELOCYTES-ABS (CELLAVISION)(BEAKER) (test 0.14 K/uL 0.00-0.00 xtbm=9029) BANDS - ABS (CELLAVISION)(BEAKER) (test 0.29 K/uL 0.00-0.80 tgsy=4091) TOTAL COUNTED (BEAKER) (test wmbr=2604) 100 WBC MORPHOLOGY (BEAKER) (test vada=875) Normal GIANT PLATELETS (BEAKER) (test bzfi=466) Present POLYCHROMATOPHILLIC RBCS(BEAKER) (test uljh=560) 1+ few ANISOCYTOSIS (BEAKER) (test ckvo=818) 1+ few ARTIFACT (CELLAVISION)(BEAKER) (test vqyt=4761) Present PLATELET CONCENTRATION (CELLAVISION)(BEAKER) Adequate (test adod=8656) Received comment: User comments: Slide comments:[id number] 06:44:00 Test Item Value Reference Range Comments MAGNESIUM (BEAKER) (test 2.1 mg/dL 1.6-2.6 Specimen slightly hemolyzed akao=778) [id number] 06:44:00 Test Item Value Reference Range Comments PHOSPHORUS (BEAKER) (test 5.0 mg/dL 2.3-4.7 Specimen slightly hemolyzed fuou=143) BASIC METABOLIC [id number] 06:44:00 Test Item Value Reference Range Comments SODIUM (BEAKER) (test 138 meq/L 136-145 hins=225) POTASSIUM (BEAKER) (test 4.6 meq/L 3.5-5.1 Specimen slightly tkrh=364) hemolyzed CHLORIDE (BEAKER) (test 99 meq/L 98-107 vfjk=797) CO2 (BEAKER) (test 30 meq/L 22-29 xyvr=531) BLOOD UREA NITROGEN 10 mg/dL 7-21 (BEAKER) (test xfjh=414) CREATININE (BEAKER) (test 0.67 mg/dL 0.57-1.25 Specimen slightly xhlq=547) hemolyzed GLUCOSE RANDOM (BEAKER) 87 mg/dL 70-105 (test mfqa=343) CALCIUM (BEAKER) (test 8.7 mg/dL 8.4-10.2 fejc=304) EGFR (BEAKER) (test 127 mL/min/1.73 sq m ESTIMATED GFR IS NOT loxf=2756) ACCURATE CREATININE CLEARANCE IN PREDICTING GLOMERULAR FILTRATION RATE. ESTIMATED GFR IS NOT APPLICABLE FOR DIALYSIS PATIENTS. [id number] 06:06:00 Test Item Value Reference Range Comments PROTIME (BEAKER) (test ztgd=645) 15.6 seconds 11.7-14.7 INR (BEAKER) (test lojr=267) 1.2 <=5.9 PARTIAL THROMBOPLASTIN TIME (BEAKER) (test 46.0 seconds 22.5-36.0 psil=816) RECOMMENDED COUMADIN/WARFARIN INR THERAPY RANGESSTANDARD DOSE: 2.0 - 3.0 Includes: PROPHYLAXIS forvenous thrombosis, systemic embolization; TREATMENT for venous thrombosis and/or pulmonary embolus.HIGH RISK: Target INR is 2.5-3.5 for patients with mechanical heart valves.SPUTUM CULTURE + GRAM [id number] 14:44:00 Test Item Value Reference Range Comments CULTURE (BEAKER) (test Oropharyngeal contamination, phlr=4574) specimen rejected. Recollect requested. GRAM STAIN RESULT (BEAKER) <1+ WBCs (test bgfe=4464) GRAM STAIN RESULT (BEAKER) >25 epithelial cells (test cuex=42173) GRAM STAIN RESULT (BEAKER) <1+ gram positive rods (test dybf=74503) RAD, CHEST, 1 VIEW, NON [id number] 13:59:00Reason for exam:-> leukocytosis in setting of [...] MDReport Verified Date/Time: 07/19/2018 13:59:21 Reading Location: [address] Consult Reading Room URINALYSIS W/ REFLEX URINE [id number] 11:14:00 Test Item Value Reference Range Comments COLOR (BEAKER) (test qjak=274) Light Yellow CLARITY (BEAKER) (test tyxd=875) Clear SPECIFIC GRAVITY UA (BEAKER) (test tgze=792) 1.013 1.001-1.035 PH UA (BEAKER) (test owdl=272) 6.0 5.0-8.0 PROTEIN UA (BEAKER) (test mfeh=096) Negative Negative GLUCOSE UA (BEAKER) (test zzyv=103) Negative Negative KETONES UA (BEAKER) (test viyj=057) Negative Negative BILIRUBIN UA (BEAKER) (test fetg=723) Negative Negative BLOOD UA (BEAKER) (test uihl=094) Trace Negative NITRITE UA (BEAKER) (test svpd=882) Negative Negative LEUKOCYTE ESTERASE UA (BEAKER) (test okoh=883) Small Negative UROBILINOGEN UA (BEAKER) (test ocpt=370) 0.2 mg/dL 0.2-1.0 RBC UA (BEAKER) (test syzf=352) 2 /HPF WBC UA (BEAKER) (test rvmy=471) 15 /HPF MUCUS (BEAKER) (test jxml=3291) Occasional HYALINE CASTS (BEAKER) (test arod=951) 2 /LPF SOURCE(BEAKER) (test jqnq=5842) POCT-GLUCOSE [id number] 06:46:00 Test Item Value Reference Range Comments POC-GLUCOSE METER (BEAKER) 102 mg/dL 70-110 TESTED AT [facility] [address] [facility] (test wnzk=3766) [facility] [address] [id number] 04:52:00 Test Item Value Reference Range Comments PHOSPHORUS (BEAKER) (test fqou=162) 4.1 mg/dL 2.3-4.7 [id number] 04:52:00 Test Item Value Reference Range Comments MAGNESIUM (BEAKER) (test rvhv=959) 1.8 mg/dL 1.6-2.6 BASIC METABOLIC [id number] 04:52:00 Test Item Value Reference Range Comments SODIUM (BEAKER) (test 138 meq/L 136-145 ajci=931) POTASSIUM (BEAKER) (test 3.7 meq/L 3.5-5.1 aknl=138) CHLORIDE (BEAKER) (test 101 meq/L 98-107 qtnd=265) CO2 (BEAKER) (test 26 meq/L 22-29 bylh=249) BLOOD UREA NITROGEN 10 mg/dL 7-21 (BEAKER) (test jyff=062) CREATININE (BEAKER) (test 0.67 mg/dL 0.57-1.25 dmqx=014) GLUCOSE RANDOM (BEAKER) 111 mg/dL 70-105 (test vzct=144) CALCIUM (BEAKER) (test 8.5 mg/dL 8.4-10.2 hsbj=957) EGFR (BEAKER) (test 127 mL/min/1.73 sq m ESTIMATED GFR IS NOT lhkf=3507) ACCURATE CREATININE CLEARANCE IN PREDICTING GLOMERULAR FILTRATION RATE. ESTIMATED GFR IS NOT APPLICABLE FOR DIALYSIS PATIENTS. CBC W/PLT COUNT & AUTO [id number] 04:25:00 Test Item Value Reference Range Comments WHITE BLOOD CELL COUNT (BEAKER) (test ffyy=462) 13.6 K/ L 3.5-10.5 RED BLOOD CELL COUNT (BEAKER) (test vain=516) 3.58 M/ L 4.63-6.08 HEMOGLOBIN (BEAKER) (test uern=348) 10.8 GM/DL 13.7-17.5 HEMATOCRIT (BEAKER) (test avav=821) 34.8 % 40.1-51.0 MEAN CORPUSCULAR VOLUME (BEAKER) (test inau=221) 97.2 fL 79.0-92.2 MEAN CORPUSCULAR HEMOGLOBIN (BEAKER) (test 30.2 pg 25.7-32.2 qcws=712) MEAN CORPUSCULAR HEMOGLOBIN CONC (BEAKER) (test 31.0 GM/DL 32.3-36.5 qgii=992) RED CELL DISTRIBUTION WIDTH (BEAKER) (test 15.1 % 11.6-14.4 swxh=387) PLATELET COUNT (BEAKER) (test fdzt=396) 392 K/CU MM 150-450 MEAN PLATELET VOLUME (BEAKER) (test vtev=079) 10.0 fL 9.4-12.4 NUCLEATED RED BLOOD CELLS (BEAKER) (test 0 /100 WBC 0-0 iaik=543) NEUTROPHILS RELATIVE PERCENT (BEAKER) (test 78 % bxvp=667) LYMPHOCYTES RELATIVE PERCENT (BEAKER) (test 5 % iboi=399) MONOCYTES RELATIVE PERCENT (BEAKER) (test 10 % tvta=003) EOSINOPHILS RELATIVE PERCENT (BEAKER) (test 2 % pugf=112) BASOPHILS RELATIVE PERCENT (BEAKER) (test 1 % pfin=906) NEUTROPHILS ABSOLUTE COUNT (BEAKER) (test 10.68 K/ L 1.78-5.38 ocbf=509) LYMPHOCYTES ABSOLUTE COUNT (BEAKER) (test 0.68 K/ L 1.32-3.57 gevc=252) MONOCYTES ABSOLUTE COUNT (BEAKER) (test 1.40 K/ L 0.30-0.82 twez=827) EOSINOPHILS ABSOLUTE COUNT (BEAKER) (test 0.31 K/ L 0.04-0.54 bkia=190) BASOPHILS ABSOLUTE COUNT (BEAKER) (test 0.08 K/ L 0.01-0.08 cxua=321) IMMATURE GRANULOCYTES-RELATIVE PERCENT (BEAKER) 3 % 0-1 (test hvmx=9107) [id number] 04:11:00 Test Item Value Reference Range Comments PROTIME (BEAKER) (test itfd=802) 15.8 seconds 11.7-14.7 INR (BEAKER) (test isty=374) 1.2 <=5.9 PARTIAL THROMBOPLASTIN TIME (BEAKER) (test 48.2 seconds 22.5-36.0 udrd=585) RECOMMENDED COUMADIN/WARFARIN INR THERAPY RANGESSTANDARD DOSE: 2.0 - 3.0 Includes: PROPHYLAXIS forvenous thrombosis, systemic embolization; TREATMENT for venous thrombosis and/or pulmonary embolus.HIGH RISK: Target INR is 2.5-3.5 for patients with mechanical heart valves.POCT-GLUCOSE [id number] 00:11:00 Test Item Value Reference Range Comments POC-GLUCOSE METER (BEAKER) 76 mg/dL 70-110 TESTED AT [address] (test pfur=3862) [place] [address] POCT-GLUCOSE [id number] 17:53:00 Test Item Value Reference Range Comments POC-GLUCOSE METER (BEAKER) 94 mg/dL 70-110 TESTED AT [address] (test xage=9817) [place] [address] T4, [id number] 11:41:00 Test Item Value Reference Range Comments FREE T4 (BEAKER) (test lelh=939) 0.90 ng/dL 0.70-1.48 POCT-GLUCOSE [id number] 11:35:00 Test Item Value Reference Range Comments POC-GLUCOSE METER (BEAKER) 103 mg/dL 70-110 TESTED AT [address] (test yzzf=0214) [place] [address] TSH/FREE T4 IF [id number] 10:50:00 Test Item Value Reference Range Comments THYROID STIMULATING HORMONE (BEAKER) (test 14.67 uIU/mL 0.35-4.94 nqvm=293) POCT-GLUCOSE [id number] 06:42:00 Test Item Value Reference Range Comments POC-GLUCOSE METER (BEAKER) 111 mg/dL 70-110 TESTED AT [address] (test wtkk=3203) [place] [address] CBC W/PLT COUNT & AUTO [id number] 05:20:00 Test Item Value Reference Range Comments WHITE BLOOD CELL COUNT (BEAKER) (test vsbd=887) 11.4 K/ L 3.5-10.5 RED BLOOD CELL COUNT (BEAKER) (test poej=110) 3.40 M/ L 4.63-6.08 HEMOGLOBIN (BEAKER) (test bsrf=886) 10.3 GM/DL 13.7-17.5 HEMATOCRIT (BEAKER) (test gtmv=067) 33.6 % 40.1-51.0 MEAN CORPUSCULAR VOLUME (BEAKER) (test dhpq=169) 98.8 fL 79.0-92.2 MEAN CORPUSCULAR HEMOGLOBIN (BEAKER) (test 30.3 pg 25.7-32.2 yjaq=146) MEAN CORPUSCULAR HEMOGLOBIN CONC (BEAKER) (test 30.7 GM/DL 32.3-36.5 eesh=688) RED CELL DISTRIBUTION WIDTH (BEAKER) (test 15.3 % 11.6-14.4 vpjr=386) PLATELET COUNT (BEAKER) (test fodf=916) 365 K/CU MM 150-450 MEAN PLATELET VOLUME (BEAKER) (test vmfv=689) 10.2 fL 9.4-12.4 NUCLEATED RED BLOOD CELLS (BEAKER) (test 0 /100 WBC 0-0 pspk=144) NEUTROPHILS RELATIVE PERCENT (BEAKER) (test 80 % miiz=250) LYMPHOCYTES RELATIVE PERCENT (BEAKER) (test 6 % asch=040) MONOCYTES RELATIVE PERCENT (BEAKER) (test 9 % wuji=627) EOSINOPHILS RELATIVE PERCENT (BEAKER) (test 3 % mldb=474) BASOPHILS RELATIVE PERCENT (BEAKER) (test 0 % kjsk=744) NEUTROPHILS ABSOLUTE COUNT (BEAKER) (test 9.06 K/ L 1.78-5.38 rluw=279) LYMPHOCYTES ABSOLUTE COUNT (BEAKER) (test 0.72 K/ L 1.32-3.57 fbke=436) MONOCYTES ABSOLUTE COUNT (BEAKER) (test 1.06 K/ L 0.30-0.82 wzln=906) EOSINOPHILS ABSOLUTE COUNT (BEAKER) (test 0.28 K/ L 0.04-0.54 jgvn=565) BASOPHILS ABSOLUTE COUNT (BEAKER) (test 0.05 K/ L 0.01-0.08 kcyg=124) IMMATURE GRANULOCYTES-RELATIVE PERCENT (BEAKER) 2 % 0-1 (test ckmv=0759) [id number] 05:00:00 Test Item Value Reference Range Comments PHOSPHORUS (BEAKER) (test gknf=609) 5.2 mg/dL 2.3-4.7 [id number] 05:00:00 Test Item Value Reference Range Comments MAGNESIUM (BEAKER) (test qezz=408) 2.0 mg/dL 1.6-2.6 BASIC METABOLIC [id number] 05:00:00 Test Item Value Reference Range Comments SODIUM (BEAKER) (test 141 meq/L 136-145 sxyq=747) POTASSIUM (BEAKER) (test 3.7 meq/L 3.5-5.1 pwmn=506) CHLORIDE (BEAKER) (test 102 meq/L 98-107 esqe=943) CO2 (BEAKER) (test 29 meq/L 22-29 hpnu=940) BLOOD UREA NITROGEN 7 mg/dL 7-21 (BEAKER) (test xghz=995) CREATININE (BEAKER) (test 0.68 mg/dL 0.57-1.25 oorb=297) GLUCOSE RANDOM (BEAKER) 114 mg/dL 70-105 (test chwo=681) CALCIUM (BEAKER) (test 8.2 mg/dL 8.4-10.2 inkc=630) EGFR (BEAKER) (test 124 mL/min/1.73 sq m ESTIMATED GFR IS NOT zvyb=4989) ACCURATE CREATININE CLEARANCE IN PREDICTING GLOMERULAR FILTRATION RATE. ESTIMATED GFR IS NOT APPLICABLE FOR DIALYSIS PATIENTS. [id number] 04:55:00 Test Item Value Reference Range Comments PROTIME (BEAKER) (test sibt=323) 15.2 seconds 11.7-14.7 INR (BEAKER) (test ozof=406) 1.2 <=5.9 PARTIAL THROMBOPLASTIN TIME (BEAKER) (test 38.9 seconds 22.5-36.0 dlsm=336) RECOMMENDED COUMADIN/WARFARIN INR THERAPY RANGESSTANDARD DOSE: 2.0 - 3.0 Includes: PROPHYLAXIS forvenous thrombosis, systemic embolization; TREATMENT for venous thrombosis and/or pulmonary embolus.HIGH RISK: Target INR is 2.5-3.5 for patients with mechanical heart valves.CBC W/PLT COUNT & AUTO [id number] 08:47:00 Test Item Value Reference Range Comments WHITE BLOOD CELL COUNT (BEAKER) (test ekza=659) 13.2 K/ L 3.5-10.5 RED BLOOD CELL COUNT (BEAKER) (test clar=438) 3.21 M/ L 4.63-6.08 HEMOGLOBIN (BEAKER) (test wapb=364) 9.8 GM/DL 13.7-17.5 HEMATOCRIT (BEAKER) (test dzhe=468) 30.9 % 40.1-51.0 MEAN CORPUSCULAR VOLUME (BEAKER) (test vjly=209) 96.3 fL 79.0-92.2 MEAN CORPUSCULAR HEMOGLOBIN (BEAKER) (test 30.5 pg 25.7-32.2 lqyn=695) MEAN CORPUSCULAR HEMOGLOBIN CONC (BEAKER) (test 31.7 GM/DL 32.3-36.5 qefm=160) RED CELL DISTRIBUTION WIDTH (BEAKER) (test 15.2 % 11.6-14.4 kqtd=296) PLATELET COUNT (BEAKER) (test yfxh=765) 310 K/CU MM 150-450 MEAN PLATELET VOLUME (BEAKER) (test gemu=607) 10.1 fL 9.4-12.4 NUCLEATED RED BLOOD CELLS (BEAKER) (test 0 /100 WBC 0-0 jjtn=839) (CELLAVISION MANUAL DIFF)2018-07-17 08:47:00 Test Item Value Reference Range Comments NEUTROPHILS - REL (CELLAVISION)(BEAKER) (test 88 % vuyk=0755) LYMPHOCYTES - REL (CELLAVISION)(BEAKER) (test 2 % tijg=4822) MONOCYTES - REL (CELLAVISION)(BEAKER) (test 5 % ochb=3475) EOSINOPHILS - REL (CELLAVISION)(BEAKER) (test 3 % wzyu=7200) MYELOCYTES - REL (CELLAVISION)(BEAKER) (test 1 % 0-0 aobr=5560) ATYPICAL LYMPHOCYTES - REL (CELLAVISION)(BEAKER) 1 % 0-0 (test ggyy=8590) NEUTROPHILS - ABS (CELLAVISION)(BEAKER) (test 11.62 K/ul 1.78-5.38 ooak=5509) LYMPHOCYTES - ABS (CELLAVISION)(BEAKER) (test 0.26 K/ul 1.32-3.57 ctrq=5742) MONOCYTES - ABS (CELLAVISION)(BEAKER) (test 0.66 K/uL 0.30-0.82 yhmi=9121) EOSINOPHILS - ABS (CELLAVISION)(BEAKER) (test 0.40 K/uL 0.04-0.54 ferk=9586) MYELOCYTES-ABS (CELLAVISION)(BEAKER) (test 0.13 K/uL 0.00-0.00 nmim=6228) ATYPICAL LYMPHOCYTES - ABS (CELLAVISION)(BEAKER) 0.13 K/uL 0.00-0.00 (test tjmw=5054) TOTAL COUNTED (BEAKER) (test zzmv=9292) 100 WBC MORPHOLOGY (BEAKER) (test xatz=712) Normal PLT MORPHOLOGY (BEAKER) (test dlod=038) Normal ANISOCYTOSIS (BEAKER) (test ssbi=043) 2+ moderate MICROCYTES (BEAKER) (test mxre=559) 2+ moderate ARTIFACT (CELLAVISION)(BEAKER) (test nzrr=8744) Present PLATELET CONCENTRATION (CELLAVISION)(BEAKER) Adequate (test txcv=4977) Received comment: User comments: Slide comments:POCT-GLUCOSE [id number] 06: 41:00 Test Item Value Reference Range Comments POC-GLUCOSE METER (BEAKER) 115 mg/dL 70-110 TESTED AT [facility] [address] [facility] (test qxkm=9987) [facility] [address] BASIC METABOLIC [id number] 04:53:00 Test Item Value Reference Range Comments SODIUM (BEAKER) (test 138 meq/L 136-145 vlnv=581) POTASSIUM (BEAKER) (test 3.4 meq/L 3.5-5.1 ckzz=237) CHLORIDE (BEAKER) (test 104 meq/L 98-107 ornd=811) CO2 (BEAKER) (test 25 meq/L 22-29 zlpz=170) BLOOD UREA NITROGEN 7 mg/dL 7-21 (BEAKER) (test piey=409) CREATININE (BEAKER) (test 0.68 mg/dL 0.57-1.25 ukpt=511) GLUCOSE RANDOM (BEAKER) 173 mg/dL 70-105 (test rxam=864) CALCIUM (BEAKER) (test 7.6 mg/dL 8.4-10.2 twbt=803) EGFR (BEAKER) (test 124 mL/min/1.73 sq m ESTIMATED GFR IS NOT knnr=9506) ACCURATE CREATININE CLEARANCE IN PREDICTING GLOMERULAR FILTRATION RATE. ESTIMATED GFR IS NOT APPLICABLE FOR DIALYSIS PATIENTS. [id number] 04:37:00 Test Item Value Reference Range Comments PHOSPHORUS (BEAKER) (test uwxe=497) 3.9 mg/dL 2.3-4.7 [id number] 04:37:00 Test Item Value Reference Range Comments MAGNESIUM (BEAKER) (test vgbi=933) 1.6 mg/dL 1.6-2.6 [id number] 04:37:00 Test Item Value Reference Range Comments ALBUMIN (BEAKER) (test amkj=8867) 3.2 g/dL 3.5-5.0 [id number] 04:24:00 Test Item Value Reference Range Comments PROTIME (BEAKER) (test yjli=652) 15.9 seconds 11.7-14.7 INR (BEAKER) (test qrze=423) 1.2 <=5.9 PARTIAL THROMBOPLASTIN TIME (BEAKER) (test 51.7 seconds 22.5-36.0 pwzl=810) RECOMMENDED COUMADIN/WARFARIN INR THERAPY RANGESSTANDARD DOSE: 2.0 - 3.0 Includes: PROPHYLAXIS forvenous thrombosis, systemic embolization; TREATMENT for venous thrombosis and/or pulmonary embolus.HIGH RISK: Target INR is 2.5-3.5 for patients with mechanical heart valves.RAD, CHEST, 1 VIEW, NON [id number] 03:56:00Reason for exam:->atelectasisShould this be performed [...] MDReport Verified Date/Time: 07/17/2018 03:56:49 Reading Location: [address] Reading Room POCT-GLUCOSE [id number] 00: 56:00 Test Item Value Reference Range Comments POC-GLUCOSE METER (BEAKER) 115 mg/dL 70-110 TESTED AT [facility] [address] [facility] (test anwq=0787) [facility] [address] POCT-GLUCOSE [id number] 18:10:00 Test Item Value Reference Range Comments POC-GLUCOSE METER (BEAKER) 116 mg/dL 70-110 TESTED AT [address] (test jveb=5416) [place] [id number] POCT-GLUCOSE [id number] 13:10:00 Test Item Value Reference Range Comments POC-GLUCOSE METER (BEAKER) 115 mg/dL 70-110 TESTED AT [address] (test zybo=7511) [place] [address] RAD, CHEST, 1 VIEW, NON [id number] 08:20:00Reason for exam:-> atelectasisShould this be performed [...] Gaudencio Barrett Verified Date/Time: 2018 08:20:57 ReadingLocation: [facility] B1 [id number] Ortho Consult Reading Room TROPONIN [id number] 08:03:00 Test Item Value Reference Range Comments TROPONIN I (BEAKER) (test evxd=555) 0.01 ng/mL 0.00-0.03 Troponin I (TnI) levels [...] acute neurological disease, and persistent tachyarrhythmia.BLOOD GAS, [id number] 07:42:00 Test Item Value Reference Range Comments PH ARTERIAL (BEAKER) (test lhkx=594) 7.42 7.35-7.45 PCO2 ARTERIAL (BEAKER) (test kost=479) 40 mmHg 35-45 PO2 ARTERIAL (BEAKER) (test rske=004) 77 mmHg 80-90 O2 SATURATION ARTERIAL (BEAKER) (test rsdp=330) 95.8 % 96.0-97.0 HCO3 ARTERIAL (BEAKER) (test oibl=714) 25 mmol/L 21-29 BASE EXCESS ARTERIAL (BEAKER) (test haws=438) 0.9 mmol/L -2.0-3.0 PATIENT TEMPERATURE (BEAKER) (test ycvi=6400) 36.8 C FIO2 (BEAKER) (test uuvh=8198) 44.0 % POCT-GLUCOSE [id number] 06:03:00 Test Item Value Reference Range Comments POC-GLUCOSE METER (BEAKER) 120 mg/dL 70-110 TESTED AT [address] (test pngn=3091) [facility] [address] CBC W/PLT COUNT & AUTO [id number] 04:00:00 Test Item Value Reference Range Comments WHITE BLOOD CELL COUNT (BEAKER) (test zecx=799) 20.3 K/ L 3.5-10.5 RED BLOOD CELL COUNT (BEAKER) (test szww=285) 3.66 M/ L 4.63-6.08 HEMOGLOBIN (BEAKER) (test pgbl=020) 11.3 GM/DL 13.7-17.5 HEMATOCRIT (BEAKER) (test gucm=695) 36.0 % 40.1-51.0 MEAN CORPUSCULAR VOLUME (BEAKER) (test qexi=714) 98.4 fL 79.0-92.2 MEAN CORPUSCULAR HEMOGLOBIN (BEAKER) (test 30.9 pg 25.7-32.2 awuf=000) MEAN CORPUSCULAR HEMOGLOBIN CONC (BEAKER) (test 31.4 GM/DL 32.3-36.5 labl=021) RED CELL DISTRIBUTION WIDTH (BEAKER) (test 15.0 % 11.6-14.4 ncjp=731) PLATELET COUNT (BEAKER) (test pfog=642) 319 K/CU MM 150-450 MEAN PLATELET VOLUME (BEAKER) (test iohq=208) 10.5 fL 9.4-12.4 NUCLEATED RED BLOOD CELLS (BEAKER) (test 0 /100 WBC 0-0 vrbs=280) NEUTROPHILS RELATIVE PERCENT (BEAKER) (test 86 % izrr=733) LYMPHOCYTES RELATIVE PERCENT (BEAKER) (test 4 % wpaq=720) MONOCYTES RELATIVE PERCENT (BEAKER) (test 9 % wmtl=204) EOSINOPHILS RELATIVE PERCENT (BEAKER) (test 0 % lmlj=586) BASOPHILS RELATIVE PERCENT (BEAKER) (test 0 % wiqp=173) NEUTROPHILS ABSOLUTE COUNT (BEAKER) (test 17.32 K/ L 1.78-5.38 lzts=037) LYMPHOCYTES ABSOLUTE COUNT (BEAKER) (test 0.72 K/ L 1.32-3.57 bgsp=051) MONOCYTES ABSOLUTE COUNT (BEAKER) (test 1.82 K/ L 0.30-0.82 sgrb=187) EOSINOPHILS ABSOLUTE COUNT (BEAKER) (test 0.07 K/ L 0.04-0.54 jvik=734) BASOPHILS ABSOLUTE COUNT (BEAKER) (test 0.07 K/ L 0.01-0.08 lukm=252) IMMATURE GRANULOCYTES-RELATIVE PERCENT (BEAKER) 1 % 0-1 (test ldpy=3149) [id number] 03:38:00 Test Item Value Reference Range Comments MAGNESIUM (BEAKER) (test 2.0 mg/dL 1.6-2.6 Specimen slightly hemolyzed dwwe=402) [id number] 03:38:00 Test Item Value Reference Range Comments PHOSPHORUS (BEAKER) (test 3.6 mg/dL 2.3-4.7 Specimen slightly hemolyzed rzyu=272) BASIC METABOLIC [id number] 03:38:00 Test Item Value Reference Range Comments SODIUM (BEAKER) (test 140 meq/L 136-145 felr=427) POTASSIUM (BEAKER) (test 4.0 meq/L 3.5-5.1 Specimen slightly npsi=244) hemolyzed CHLORIDE (BEAKER) (test 105 meq/L 98-107 esss=538) CO2 (BEAKER) (test 25 meq/L 22-29 ojkp=259) BLOOD UREA NITROGEN 5 mg/dL 7-21 (BEAKER) (test gdni=693) CREATININE (BEAKER) (test 0.73 mg/dL 0.57-1.25 Specimen slightly cgdo=325) hemolyzed GLUCOSE RANDOM (BEAKER) 129 mg/dL 70-105 (test csjm=903) CALCIUM (BEAKER) (test 8.5 mg/dL 8.4-10.2 nmxj=493) EGFR (BEAKER) (test 115 mL/min/1.73 sq m ESTIMATED GFR IS NOT rkkt=1100) ACCURATE CREATININE CLEARANCE IN PREDICTING GLOMERULAR FILTRATION RATE. ESTIMATED GFR IS NOT APPLICABLE FOR DIALYSIS PATIENTS. [id number] 03:38:00 Test Item Value Reference Range Comments ALBUMIN (BEAKER) (test 3.9 g/dL 3.5-5.0 Specimen slightly hemolyzed kgvd=7829) [id number] 03:31:00 Test Item Value Reference Range Comments PROTIME (BEAKER) (test tcxw=928) 15.5 seconds 11.7-14.7 INR (BEAKER) (test ukhm=414) 1.2 <=5.9 PARTIAL THROMBOPLASTIN TIME (BEAKER) (test 34.5 seconds 22.5-36.0 pwqt=612) RECOMMENDED COUMADIN/WARFARIN INR THERAPY RANGESSTANDARD DOSE: 2.0 - 3.0 Includes: PROPHYLAXIS forvenous thrombosis, systemic embolization; TREATMENT for venous thrombosis and/or pulmonary embolus.HIGH RISK: Target INR is 2.5-3.5 for patients with mechanical heart valves.POCT-GLUCOSE [id number] 23:39:00 Test Item Value Reference Range Comments POC-GLUCOSE METER (BEAKER) 121 mg/dL 70-110 TESTED AT [address] (test culf=7147) [facility] [address] POCT-GLUCOSE [id number] 18:25:00 Test Item Value Reference Range Comments POC-GLUCOSE METER (BEAKER) 112 mg/dL 70-110 TESTED AT [address] (test wugn=0646) [facility] [address] T4, [id number] 12:56:00 Test Item Value Reference Range Comments FREE T4 (BEAKER) (test oamk=163) 1.17 ng/dL 0.70-1.48 POCT-GLUCOSE [id number] 11:35:00 Test Item Value Reference Range Comments POC-GLUCOSE METER (BEAKER) 143 mg/dL 70-110 TESTED AT [facility] [address] (test tcrc=7652) [place] [address] CBC W/PLT COUNT & AUTO [id number] 07:50:00 Test Item Value Reference Range Comments WHITE BLOOD CELL COUNT (BEAKER) (test cswh=025) 24.1 K/ L 3.5-10.5 RED BLOOD CELL COUNT (BEAKER) (test bknf=673) 3.75 M/ L 4.63-6.08 HEMOGLOBIN (BEAKER) (test knks=735) 11.7 GM/DL 13.7-17.5 HEMATOCRIT (BEAKER) (test zejx=268) 35.7 % 40.1-51.0 MEAN CORPUSCULAR VOLUME (BEAKER) (test hhks=545) 95.2 fL 79.0-92.2 MEAN CORPUSCULAR HEMOGLOBIN (BEAKER) (test 31.2 pg 25.7-32.2 kltm=934) MEAN CORPUSCULAR HEMOGLOBIN CONC (BEAKER) (test 32.8 GM/DL 32.3-36.5 fepj=908) RED CELL DISTRIBUTION WIDTH (BEAKER) (test 14.8 % 11.6-14.4 cuzx=499) PLATELET COUNT (BEAKER) (test jfua=911) 334 K/CU MM 150-450 MEAN PLATELET VOLUME (BEAKER) (test rliv=264) 10.3 fL 9.4-12.4 NUCLEATED RED BLOOD CELLS (BEAKER) (test 0 /100 WBC 0-0 lhca=332) (CELLAVISION MANUAL DIFF)2018-07-15 07:50:00 Test Item Value Reference Range Comments NEUTROPHILS - REL (CELLAVISION)(BEAKER) (test 87 % lgwj=1120) LYMPHOCYTES - REL (CELLAVISION)(BEAKER) (test 3 % ikxk=1980) MONOCYTES - REL (CELLAVISION)(BEAKER) (test 5 % plrs=6664) METAMYELOCYTES - REL (CELLAVISION)(BEAKER) (test 1 % 0-0 hnce=4226) MYELOCYTES - REL (CELLAVISION)(BEAKER) (test 1 % 0-0 nyjn=1592) BANDS - REL (CELLAVISION)(BEAKER) (test 2 % 0-10 taty=9802) ATYPICAL LYMPHOCYTES - REL (CELLAVISION)(BEAKER) 1 % 0-0 (test kfxw=7759) NEUTROPHILS - ABS (CELLAVISION)(BEAKER) (test 20.97 K/ul 1.78-5.38 sitj=5234) LYMPHOCYTES - ABS (CELLAVISION)(BEAKER) (test 0.72 K/ul 1.32-3.57 dphm=8998) MONOCYTES - ABS (CELLAVISION)(BEAKER) (test 1.21 K/uL 0.30-0.82 ayrl=9953) METAMYELOCYTES - ABS (CELLAVISION)(BEAKER) (test 0.24 K/uL 0.00-0.00 tcvl=4794) MYELOCYTES-ABS (CELLAVISION)(BEAKER) (test 0.24 K/uL 0.00-0.00 olim=9236) BANDS - ABS (CELLAVISION)(BEAKER) (test 0.48 K/uL 0.00-0.80 fgzb=4181) ATYPICAL LYMPHOCYTES - ABS (CELLAVISION)(BEAKER) 0.24 K/uL 0.00-0.00 (test ezjg=9023) TOTAL COUNTED (BEAKER) (test cjrv=4872) 100 WBC MORPHOLOGY (BEAKER) (test lqze=357) Normal PLT MORPHOLOGY (BEAKER) (test djhy=737) Normal ANISOCYTOSIS (BEAKER) (test vcor=343) 2+ moderate MICROCYTES (BEAKER) (test gzwx=374) 2+ moderate ARTIFACT (CELLAVISION)(BEAKER) (test dcvo=6419) Present PLATELET CONCENTRATION (CELLAVISION)(BEAKER) Adequate (test vudb=5532) Received comment: User comments: Slide comments:RAD, CHEST, 1 VIEW, NON [id number] -04-16 05:48:00Reason for exam:->postop laryngectomy with trachShould [...] [place] Verified Date/Time: 2018 05:48:22 Reading Location: [address] Neuro Reading Room POCT-GLUCOSE [id number] 05:47:00 Test Item Value Reference Range Comments POC-GLUCOSE METER (BEAKER) 177 mg/dL 70-110 TESTED AT [facility] [address] [facility] (test cnoc=6354) [facility] [address] [id number] 04:29:00 Test Item Value Reference Range Comments PHOSPHORUS (BEAKER) (test zcmm=442) 2.3 mg/dL 2.3-4.7 [id number] 04:29:00 Test Item Value Reference Range Comments MAGNESIUM (BEAKER) (test knyd=897) 1.7 mg/dL 1.6-2.6 BASIC METABOLIC [id number] 04:29:00 Test Item Value Reference Range Comments SODIUM (BEAKER) (test 136 meq/L 136-145 lfjp=431) POTASSIUM (BEAKER) (test 3.7 meq/L 3.5-5.1 svjk=056) CHLORIDE (BEAKER) (test 103 meq/L 98-107 hbtc=367) CO2 (BEAKER) (test 24 meq/L 22-29 avft=232) BLOOD UREA NITROGEN 7 mg/dL 7-21 (BEAKER) (test pyvg=917) CREATININE (BEAKER) (test 0.73 mg/dL 0.57-1.25 rtig=320) GLUCOSE RANDOM (BEAKER) 179 mg/dL 70-105 (test btlg=842) CALCIUM (BEAKER) (test 9.2 mg/dL 8.4-10.2 lnav=403) EGFR (BEAKER) (test 115 mL/min/1.73 sq m ESTIMATED GFR IS NOT qkkl=3108) ACCURATE CREATININE CLEARANCE IN PREDICTING GLOMERULAR FILTRATION RATE. ESTIMATED GFR IS NOT APPLICABLE FOR DIALYSIS PATIENTS. [id number] 04:29:00 Test Item Value Reference Range Comments ALBUMIN (BEAKER) (test kthh=7155) 3.8 g/dL 3.5-5.0 [id number] 04:22:00 Test Item Value Reference Range Comments PROTIME (BEAKER) (test yzyu=423) 14.5 seconds 11.7-14.7 INR (BEAKER) (test jdki=614) 1.1 <=5.9 PARTIAL THROMBOPLASTIN TIME (BEAKER) (test 42.0 seconds 22.5-36.0 oxue=581) RECOMMENDED COUMADIN/WARFARIN INR THERAPY RANGESSTANDARD DOSE: 2.0 - 3.0 Includes: PROPHYLAXIS forvenous thrombosis, systemic embolization; TREATMENT for venous thrombosis and/or pulmonary embolus.HIGH RISK: Target INR is 2.5-3.5 for patients with mechanical heart valves.POCT-GLUCOSE [id number] 23:55:00 Test Item Value Reference Range Comments POC-GLUCOSE METER (BEAKER) 159 mg/dL 70-110 TESTED AT [facility] [address] [place] [address] (test vsxj=7452) [facility] [address] [id number] 19:41:00 Test Item Value Reference Range Comments THYROID STIMULATING HORMONE (BEAKER) (test 6.82 uIU/mL 0.35-4.94 nqfr=412) [id number] 19:26:00 Test Item Value Reference Range Comments PHOSPHORUS (BEAKER) (test rpaf=727) 4.9 mg/dL 2.3-4.7 Postop labsPostop labsPostop labsPostop [id number] 19:26:00 Test Item Value Reference Range Comments MAGNESIUM (BEAKER) (test zbcm=010) 1.9 mg/dL 1.6-2.6 Postop labsPostop labsPostop labsPostop labsBASIC METABOLIC [id number] 19: 26:00 Test Item Value Reference Range Comments SODIUM (BEAKER) (test 140 meq/L 136-145 dusw=578) POTASSIUM (BEAKER) (test 4.6 meq/L 3.5-5.1 ftha=143) CHLORIDE (BEAKER) (test 107 meq/L 98-107 ajan=805) CO2 (BEAKER) (test 26 meq/L 22-29 zfue=281) BLOOD UREA NITROGEN 8 mg/dL 7-21 (BEAKER) (test ozfi=808) CREATININE (BEAKER) (test 0.77 mg/dL 0.57-1.25 nzju=387) GLUCOSE RANDOM (BEAKER) 109 mg/dL 70-105 (test hjqx=459) CALCIUM (BEAKER) (test 9.4 mg/dL 8.4-10.2 hhxf=711) EGFR (BEAKER) (test 108 mL/min/1.73 sq m ESTIMATED GFR IS NOT rtjv=4501) ACCURATE CREATININE CLEARANCE IN PREDICTING GLOMERULAR FILTRATION RATE. ESTIMATED GFR IS NOT APPLICABLE FOR DIALYSIS PATIENTS. Postop labsPostop labsPostop labsPostop [id number] 19:26:00 Test Item Value Reference Range Comments ALBUMIN (BEAKER) (test gheo=6524) 3.9 g/dL 3.5-5.0 Postop labsPostop labsPostop labsPostop [id number] 19:24:00 Test Item Value Reference Range Comments PREALBUMIN (BEAKER) (test 17 mg/dL 14-45 Specimen slightly hemolyzed tbil=524) PTH, [id number] 19:23:00 Test Item Value Reference Range Comments PARATHYROID HORMONE INTACT (BEAKER) (test 16.1 pg/mL 8.5-72.5 ippi=805) Postop LabsCBC W/PLT COUNT & AUTO [id number] 18:58:00 Test Item Value Reference Range Comments WHITE BLOOD CELL COUNT (BEAKER) (test ojiu=583) 13.3 K/ L 3.5-10.5 RED BLOOD CELL COUNT (BEAKER) (test upin=858) 3.50 M/ L 4.63-6.08 HEMOGLOBIN (BEAKER) (test sfva=974) 10.8 GM/DL 13.7-17.5 HEMATOCRIT (BEAKER) (test dcyy=755) 34.1 % 40.1-51.0 MEAN CORPUSCULAR VOLUME (BEAKER) (test nhja=126) 97.4 fL 79.0-92.2 MEAN CORPUSCULAR HEMOGLOBIN (BEAKER) (test 30.9 pg 25.7-32.2 lahg=317) MEAN CORPUSCULAR HEMOGLOBIN CONC (BEAKER) (test 31.7 GM/DL 32.3-36.5 nlkr=564) RED CELL DISTRIBUTION WIDTH (BEAKER) (test 15.1 % 11.6-14.4 foqk=244) PLATELET COUNT (BEAKER) (test vdvz=400) 278 K/CU MM 150-450 MEAN PLATELET VOLUME (BEAKER) (test qkge=142) 9.5 fL 9.4-12.4 NUCLEATED RED BLOOD CELLS (BEAKER) (test 0 /100 WBC 0-0 pfdl=992) NEUTROPHILS RELATIVE PERCENT (BEAKER) (test 84 % lcrt=324) LYMPHOCYTES RELATIVE PERCENT (BEAKER) (test 6 % ccel=546) MONOCYTES RELATIVE PERCENT (BEAKER) (test 8 % kzhs=158) EOSINOPHILS RELATIVE PERCENT (BEAKER) (test 1 % qogs=289) BASOPHILS RELATIVE PERCENT (BEAKER) (test 0 % eeoo=289) NEUTROPHILS ABSOLUTE COUNT (BEAKER) (test 11.15 K/ L 1.78-5.38 xwwi=084) LYMPHOCYTES ABSOLUTE COUNT (BEAKER) (test 0.73 K/ L 1.32-3.57 gzcv=379) MONOCYTES ABSOLUTE COUNT (BEAKER) (test 1.04 K/ L 0.30-0.82 zzsd=754) EOSINOPHILS ABSOLUTE COUNT (BEAKER) (test 0.15 K/ L 0.04-0.54 ybok=467) BASOPHILS ABSOLUTE COUNT (BEAKER) (test 0.05 K/ L 0.01-0.08 oids=625) IMMATURE GRANULOCYTES-RELATIVE PERCENT (BEAKER) 1 % 0-1 (test ejoo=4082) BLOOD GAS, [id number] 15:31:00 Test Item Value Reference Range Comments PH ARTERIAL (BEAKER) (test ywhw=260) 7.37 7.35-7.45 PCO2 ARTERIAL (BEAKER) (test ssvi=707) 46 mmHg 35-45 PO2 ARTERIAL (BEAKER) (test cdzs=693) 273 mmHg 80-90 O2 SATURATION ARTERIAL (BEAKER) (test dbvl=976) 99.6 % 96.0-97.0 HCO3 ARTERIAL (BEAKER) (test vrdh=050) 26 mmol/L 21-29 BASE EXCESS ARTERIAL (BEAKER) (test utks=005) 0.4 mmol/L -2.0-3.0 PATIENT TEMPERATURE (BEAKER) (test nmnh=9426) 37.0 C FIO2 (BEAKER) (test ctpx=6051) 100.0 % HGB/HCT (H&H) - STAT [id number] 15:31:00 Test Item Value Reference Range Comments HEMOGLOBIN (BEAKER) (test jlmb=245) 11.0 g/dL 13.0-16.8 HEMATOCRIT (BEAKER) (test jpoo=978) 32.0 % 40.0-50.0 GLUCOSE-STAT [id number] 15:30:00 Test Item Value Reference Range Comments GLUCOSE RANDOM (BEAKER) (test nbux=460) 87 mg/dL 70-110 SODIUM NA-STAT [id number] 15:30:00 Test Item Value Reference Range Comments SODIUM (BEAKER) (test cwnz=388) 137 meq/L 135-148 POTASSIUM-STAT [id number] 15:30:00 Test Item Value Reference Range Comments POTASSIUM (BEAKER) (test qduz=316) 4.0 meq/L 3.6-5.5 ANG, INSERTION G TUBE, W/ [id number] 14:18:00Reason for exam:-> Gastrostomy tubeFINAL REPORT Fluoroscopic guided gastrostomy tube placement, 07/11/2018. Clinical History: Laryngeal cancer. Modality: Fluoroscopy. Early Childhood Lead Teacher: Jack Lima MD. Industrial Services Worker: Dilip Vivas MD. Conscious sedation: 2.0 mg [...] After the tract was dilated, a 14 Tamazight catheter was placed into the stomach. The [...] Verified Date/Time: 07/11/2018 14:18 :50 Reading Location: [place] [address] Angio Body Reading Room Electronically signed by: JACK Rose 07/11/2018 02:18 PMTSH/FREE T4 IF [id number] 13:24:00 Test Item Value Reference Range Comments THYROID STIMULATING HORMONE (BEAKER) (test 2.37 uIU/mL 0.35-4.94 amav=648) RAD, CHEST, PA OR AP, 1 [id number] 11:03:00Reason for exam:->coughShould this be performed at the bedside?->NoFINAL REPORT AP chest HISTORY: Cough. COMPARISON: 06/17/2018. IMPRESSION: Tracheostomy tube present. Heart size normal. Lungs clear without effusion or pneumothorax. Intact skeleton. Signed: Ashok Whitaker Verified Date/Time: 2018 11:03:24 Reading Location: [address] Radiology Reading Room 11:03 AMCOMPREHENSIVE METABOLIC [id number] 10:52:00 Test Item Value Reference Range Comments TOTAL PROTEIN (BEAKER) 7.2 gm/dL 6.0-8.3 (test hiip=322) ALBUMIN (BEAKER) (test 3.9 g/dL 3.5-5.0 pehc=2156) ALKALINE PHOSPHATASE 98 U/L 40-150 (BEAKER) (test ycia=733) BILIRUBIN TOTAL (BEAKER) 0.4 mg/dL 0.2-1.2 (test dhvu=640) SODIUM (BEAKER) (test 141 meq/L 136-145 dthr=470) POTASSIUM (BEAKER) (test 4.4 meq/L 3.5-5.1 hgmq=407) CHLORIDE (BEAKER) (test 109 meq/L 98-107 sbkj=311) CO2 (BEAKER) (test 24 meq/L 22-29 jppt=163) BLOOD UREA NITROGEN 14 mg/dL 7-21 (BEAKER) (test gxhi=048) CREATININE (BEAKER) (test 0.78 mg/dL 0.57-1.25 tqtv=484) GLUCOSE RANDOM (BEAKER) 107 mg/dL 70-105 (test gkcm=753) CALCIUM (BEAKER) (test 9.4 mg/dL 8.4-10.2 hicu=856) AST (SGOT) (BEAKER) (test 17 U/L 5-34 lohs=499) ALT (SGPT) (BEAKER) (test 17 U/L 6-55 wuls=138) EGFR (BEAKER) (test 106 mL/min/1.73 sq ESTIMATED GFR IS NOT nrih=8957) m ACCURATE CREATININE CLEARANCE IN PREDICTING GLOMERULAR FILTRATION RATE. ESTIMATED GFR IS NOT APPLICABLE FOR DIALYSIS PATIENTS. CBC W/PLT COUNT & AUTO [id number] 10:32:00 Test Item Value Reference Range Comments WHITE BLOOD CELL COUNT (BEAKER) (test dwzm=714) 10.8 K/ L 3.5-10.5 RED BLOOD CELL COUNT (BEAKER) (test hprv=234) 4.08 M/ L 4.63-6.08 HEMOGLOBIN (BEAKER) (test pcir=994) 12.6 GM/DL 13.7-17.5 HEMATOCRIT (BEAKER) (test eznt=501) 39.4 % 40.1-51.0 MEAN CORPUSCULAR VOLUME (BEAKER) (test qnky=341) 96.6 fL 79.0-92.2 MEAN CORPUSCULAR HEMOGLOBIN (BEAKER) (test 30.9 pg 25.7-32.2 pjnw=045) MEAN CORPUSCULAR HEMOGLOBIN CONC (BEAKER) (test 32.0 GM/DL 32.3-36.5 woim=188) RED CELL DISTRIBUTION WIDTH (BEAKER) (test 15.3 % 11.6-14.4 mphb=961) PLATELET COUNT (BEAKER) (test lcjv=689) 321 K/CU MM 150-450 MEAN PLATELET VOLUME (BEAKER) (test kpwa=001) 9.9 fL 9.4-12.4 NUCLEATED RED BLOOD CELLS (BEAKER) (test 0 /100 WBC 0-0 iaub=818) NEUTROPHILS RELATIVE PERCENT (BEAKER) (test 76 % ddid=315) LYMPHOCYTES RELATIVE PERCENT (BEAKER) (test 7 % bogi=038) MONOCYTES RELATIVE PERCENT (BEAKER) (test 10 % rclz=603) EOSINOPHILS RELATIVE PERCENT (BEAKER) (test 2 % yqur=152) BASOPHILS RELATIVE PERCENT (BEAKER) (test 1 % saia=970) NEUTROPHILS ABSOLUTE COUNT (BEAKER) (test 8.18 K/ L 1.78-5.38 widl=267) LYMPHOCYTES ABSOLUTE COUNT (BEAKER) (test 0.79 K/ L 1.32-3.57 ylgc=481) MONOCYTES ABSOLUTE COUNT (BEAKER) (test 1.04 K/ L 0.30-0.82 bsuv=231) EOSINOPHILS ABSOLUTE COUNT (BEAKER) (test 0.16 K/ L 0.04-0.54 rlqu=289) BASOPHILS ABSOLUTE COUNT (BEAKER) (test 0.13 K/ L 0.01-0.08 uogt=627) IMMATURE GRANULOCYTES-RELATIVE PERCENT (BEAKER) 5 % 0-1 (test phii=5417) [id number] 10:30:00 Test Item Value Reference Range Comments PROTIME (BEAKER) (test mzdz=697) 14.6 seconds 11.7-14.7 INR (BEAKER) (test ggsu=959) 1.1 <=5.9 PARTIAL THROMBOPLASTIN TIME (BEAKER) (test 34.3 seconds 22.5-36.0 lrje=605) RECOMMENDED COUMADIN/WARFARIN INR THERAPY RANGESSTANDARD DOSE: 2.0 - 3.0 Includes: PROPHYLAXIS forvenous thrombosis, systemic embolization; TREATMENT for venous thrombosis and/or pulmonary embolus.HIGH RISK: Target INR is 2.5-3.5 for patients with mechanical heart valves.BLOOD [id number] 20:01:00 Test Item Value Reference Range Comments CULTURE (BEAKER) (test wgry=8141) No growth in 5 days BLOOD [id number] 20:01:00 Test Item Value Reference Range Comments CULTURE (BEAKER) (test jhdc=8934) No growth in 5 days CBC W/PLT COUNT & AUTO [id number] 12:54:00 Test Item Value Reference Range Comments WHITE BLOOD CELL COUNT (BEAKER) (test ydfr=238) 6.6 K/ L 3.5-10.5 RED BLOOD CELL COUNT (BEAKER) (test xgbp=206) 3.84 M/ L 4.63-6.08 HEMOGLOBIN (BEAKER) (test chkt=145) 11.9 GM/DL 13.7-17.5 HEMATOCRIT (BEAKER) (test aucn=504) 37.1 % 40.1-51.0 MEAN CORPUSCULAR VOLUME (BEAKER) (test ioxc=691) 96.6 fL 79.0-92.2 MEAN CORPUSCULAR HEMOGLOBIN (BEAKER) (test 31.0 pg 25.7-32.2 upqn=683) MEAN CORPUSCULAR HEMOGLOBIN CONC (BEAKER) (test 32.1 GM/DL 32.3-36.5 wclh=432) RED CELL DISTRIBUTION WIDTH (BEAKER) (test 15.1 % 11.6-14.4 ekoh=448) PLATELET COUNT (BEAKER) (test xcqk=272) 282 K/CU MM 150-450 MEAN PLATELET VOLUME (BEAKER) (test ujaa=996) 10.3 fL 9.4-12.4 NUCLEATED RED BLOOD CELLS (BEAKER) (test 0 /100 WBC 0-0 xlkc=877) (CELLAVISION MANUAL DIFF)2018-06-21 12:54:00 Test Item Value Reference Range Comments NEUTROPHILS - REL (CELLAVISION)(BEAKER) (test 63 % lqxr=8641) LYMPHOCYTES - REL (CELLAVISION)(BEAKER) (test 10 % mcxx=5500) MONOCYTES - REL (CELLAVISION)(BEAKER) (test 8 % hwta=0465) EOSINOPHILS - REL (CELLAVISION)(BEAKER) (test 2 % kyfu=2211) BASOPHILS - REL (CELLAVISION)(BEAKER) (test 2 % nind=9243) METAMYELOCYTES - REL (CELLAVISION)(BEAKER) (test 2 % 0-0 ypdq=2949) BANDS - REL (CELLAVISION)(BEAKER) (test icmw=7945) 12 % 0-10 NEUTROPHILS - ABS (CELLAVISION)(BEAKER) (test 4.16 K/ul 1.78-5.38 nwiq=7082) LYMPHOCYTES - ABS (CELLAVISION)(BEAKER) (test 0.66 K/ul 1.32-3.57 fvjr=8941) MONOCYTES - ABS (CELLAVISION)(BEAKER) (test 0.53 K/uL 0.30-0.82 yzch=6080) EOSINOPHILS - ABS (CELLAVISION)(BEAKER) (test 0.13 K/uL 0.04-0.54 uqbo=6593) BASOPHILS - ABS (CELLAVISION)(BEAKER) (test 0.13 K/uL 0.01-0.08 oklr=4921) METAMYELOCYTES - ABS (CELLAVISION)(BEAKER) (test 0.13 K/uL 0.00-0.00 cfgb=2878) BANDS - ABS (CELLAVISION)(BEAKER) (test musu=3653) 0.79 K/uL 0.00-0.80 TOTAL COUNTED (BEAKER) (test sqyg=3230) 100 WBC MORPHOLOGY (BEAKER) (test hyhi=219) Normal GIANT PLATELETS (BEAKER) (test irbg=878) Present ANISOCYTOSIS (BEAKER) (test uhui=516) 1+ few ARTIFACT (CELLAVISION)(BEAKER) (test knhl=3202) Present PLATELET CONCENTRATION (CELLAVISION)(BEAKER) (test Adequate czjp=4715) Received comment: User comments: Slide comments:BASIC METABOLIC [id number] 06:44:00 Test Item Value Reference Range Comments SODIUM (BEAKER) (test 137 meq/L 136-145 bmri=046) POTASSIUM (BEAKER) (test 4.0 meq/L 3.5-5.1 zhld=286) CHLORIDE (BEAKER) (test 102 meq/L 98-107 nygh=180) CO2 (BEAKER) (test 27 meq/L 22-29 iraw=122) BLOOD UREA NITROGEN 9 mg/dL 7-21 (BEAKER) (test nhxf=999) CREATININE (BEAKER) (test 0.66 mg/dL 0.57-1.25 prdv=295) GLUCOSE RANDOM (BEAKER) 99 mg/dL 70-105 (test ayuk=741) CALCIUM (BEAKER) (test 9.0 mg/dL 8.4-10.2 ofzl=876) EGFR (BEAKER) (test 129 mL/min/1.73 sq m ESTIMATED GFR IS NOT sqpp=7094) ACCURATE CREATININE CLEARANCE IN PREDICTING GLOMERULAR FILTRATION RATE. ESTIMATED GFR IS NOT APPLICABLE FOR DIALYSIS PATIENTS. BLOOD [id number] 12:01:00 Test Item Value Reference Range Comments CULTURE (BEAKER) (test siyo=1227) No growth in 5 days CBC W/PLT COUNT & AUTO [id number] 11:06:00 Test Item Value Reference Range Comments WHITE BLOOD CELL COUNT (BEAKER) (test zmrg=811) 6.7 K/ L 3.5-10.5 RED BLOOD CELL COUNT (BEAKER) (test shgv=781) 3.88 M/ L 4.63-6.08 HEMOGLOBIN (BEAKER) (test skpt=860) 12.4 GM/DL 13.7-17.5 HEMATOCRIT (BEAKER) (test nicy=887) 36.8 % 40.1-51.0 MEAN CORPUSCULAR VOLUME (BEAKER) (test xtww=659) 94.8 fL 79.0-92.2 MEAN CORPUSCULAR HEMOGLOBIN (BEAKER) (test 32.0 pg 25.7-32.2 esly=853) MEAN CORPUSCULAR HEMOGLOBIN CONC (BEAKER) (test 33.7 GM/DL 32.3-36.5 tqlq=154) RED CELL DISTRIBUTION WIDTH (BEAKER) (test 15.3 % 11.6-14.4 lfkj=383) PLATELET COUNT (BEAKER) (test vhua=850) 218 K/CU MM 150-450 MEAN PLATELET VOLUME (BEAKER) (test rrhx=397) 10.5 fL 9.4-12.4 NUCLEATED RED BLOOD CELLS (BEAKER) (test 0 /100 WBC 0-0 znff=843) (CELLAVISION MANUAL DIFF)2018-06-20 11:06:00 Test Item Value Reference Range Comments NEUTROPHILS - REL (CELLAVISION)(BEAKER) (test 77 % zity=6507) LYMPHOCYTES - REL (CELLAVISION)(BEAKER) (test 6 % iuwz=4127) MONOCYTES - REL (CELLAVISION)(BEAKER) (test 3 % afqe=1352) EOSINOPHILS - REL (CELLAVISION)(BEAKER) (test 2 % ycjt=6748) BANDS - REL (CELLAVISION)(BEAKER) (test gsqc=8305) 10 % 0-10 ATYPICAL LYMPHOCYTES - REL (CELLAVISION)(BEAKER) 2 % 0-0 (test ziwp=8337) NEUTROPHILS - ABS (CELLAVISION)(BEAKER) (test 5.16 K/ul 1.78-5.38 hahl=1516) LYMPHOCYTES - ABS (CELLAVISION)(BEAKER) (test 0.40 K/ul 1.32-3.57 xppc=1478) MONOCYTES - ABS (CELLAVISION)(BEAKER) (test 0.20 K/uL 0.30-0.82 yxwx=4176) EOSINOPHILS - ABS (CELLAVISION)(BEAKER) (test 0.13 K/uL 0.04-0.54 rafz=3250) BANDS - ABS (CELLAVISION)(BEAKER) (test omim=3922) 0.67 K/uL 0.00-0.80 ATYPICAL LYMPHOCYTES - ABS (CELLAVISION)(BEAKER) 0.13 K/uL 0.00-0.00 (test kbjy=1600) TOTAL COUNTED (BEAKER) (test iyan=4066) 100 CLUMPED PLATELETS (BEAKER) (test mjuu=466) Present SMUDGE CELLS (BEAKER) (test cujo=9973) Present GIANT PLATELETS (BEAKER) (test hdtt=056) Present TOXIC GRANULATION (BEAKER) (test glxc=038) Present ANISOCYTOSIS (BEAKER) (test daai=039) 1+ few PLATELET CONCENTRATION (CELLAVISION)(BEAKER) (test Adequate gyax=5094) Received comment: User comments: Slide comments:BASIC METABOLIC [id number] 08:11:00 Test Item Value Reference Range Comments SODIUM (BEAKER) (test 134 meq/L 136-145 mupg=219) POTASSIUM (BEAKER) (test 3.8 meq/L 3.5-5.1 optt=335) CHLORIDE (BEAKER) (test 97 meq/L 98-107 mesy=604) CO2 (BEAKER) (test 29 meq/L 22-29 elct=987) BLOOD UREA NITROGEN 8 mg/dL 7-21 (BEAKER) (test qdmb=255) CREATININE (BEAKER) (test 0.65 mg/dL 0.57-1.25 qexu=607) GLUCOSE RANDOM (BEAKER) 93 mg/dL 70-105 (test npov=631) CALCIUM (BEAKER) (test 9.0 mg/dL 8.4-10.2 slzk=986) EGFR (BEAKER) (test 132 mL/min/1.73 sq m ESTIMATED GFR IS NOT dgbr=6831) ACCURATE CREATININE CLEARANCE IN PREDICTING GLOMERULAR FILTRATION RATE. ESTIMATED GFR IS NOT APPLICABLE FOR DIALYSIS PATIENTS. BLOOD [id number] 08:01:00 Test Item Value Reference Range Comments CULTURE (BEAKER) (test euig=3063) No growth in 5 days BLOOD [id number] 02:00:00 Test Item Value Reference Range Comments CULTURE (BEAKER) (test jyxl=7384) No growth in 5 days BLOOD [id number] 02:00:00 Test Item Value Reference Range Comments CULTURE (BEAKER) (test iafq=7281) No growth in 5 days CBC W/PLT COUNT & AUTO [id number] 15:32:00 Test Item Value Reference Range Comments WHITE BLOOD CELL COUNT (BEAKER) (test jrxg=393) 6.4 K/ L 3.5-10.5 RED BLOOD CELL COUNT (BEAKER) (test diqq=718) 4.16 M/ L 4.63-6.08 HEMOGLOBIN (BEAKER) (test wjoy=977) 13.2 GM/DL 13.7-17.5 HEMATOCRIT (BEAKER) (test ypnr=167) 39.5 % 40.1-51.0 MEAN CORPUSCULAR VOLUME (BEAKER) (test ywhc=887) 95.0 fL 79.0-92.2 MEAN CORPUSCULAR HEMOGLOBIN (BEAKER) (test 31.7 pg 25.7-32.2 tras=434) MEAN CORPUSCULAR HEMOGLOBIN CONC (BEAKER) (test 33.4 GM/DL 32.3-36.5 lkhi=005) RED CELL DISTRIBUTION WIDTH (BEAKER) (test 15.7 % 11.6-14.4 reeo=338) PLATELET COUNT (BEAKER) (test tcrc=936) 148 K/CU MM 150-450 MEAN PLATELET VOLUME (BEAKER) (test gpar=649) 10.7 fL 9.4-12.4 NUCLEATED RED BLOOD CELLS (BEAKER) (test 0 /100 WBC 0-0 xgin=659) (CELLAVISION MANUAL DIFF)2018-06-19 15:32:00 Test Item Value Reference Range Comments NEUTROPHILS - REL (CELLAVISION)(BEAKER) (test 73 % duyj=5625) LYMPHOCYTES - REL (CELLAVISION)(BEAKER) (test 3 % jjaf=2287) MONOCYTES - REL (CELLAVISION)(BEAKER) (test 3 % pzue=6246) METAMYELOCYTES - REL (CELLAVISION)(BEAKER) (test 2 % 0-0 ojts=4026) MYELOCYTES - REL (CELLAVISION)(BEAKER) (test 1 % 0-0 fcso=4886) BANDS - REL (CELLAVISION)(BEAKER) (test 16 % 0-10 zook=5496) NEUTROPHILS - ABS (CELLAVISION)(BEAKER) (test 4.67 K/ul 1.78-5.38 qist=3458) LYMPHOCYTES - ABS (CELLAVISION)(BEAKER) (test 0.19 K/ul 1.32-3.57 emxk=3516) MONOCYTES - ABS (CELLAVISION)(BEAKER) (test 0.19 K/uL 0.30-0.82 sura=9577) METAMYELOCYTES - ABS (CELLAVISION)(BEAKER) (test 0.13 K/uL 0.00-0.00 tvcu=9654) MYELOCYTES-ABS (CELLAVISION)(BEAKER) (test 0.06 K/uL 0.00-0.00 yvhj=4338) BANDS - ABS (CELLAVISION)(BEAKER) (test 1.02 K/uL 0.00-0.80 fqtq=9187) TOTAL COUNTED (BEAKER) (test ykqy=7138) 100 GIANT PLATELETS (BEAKER) (test ctrf=980) Present TOXIC GRANULATION (BEAKER) (test okui=364) Present PLASMACYTOID LYMPHS(BEAKER) (test skzp=8716) Present POLYCHROMATOPHILLIC RBCS(BEAKER) (test fpng=730) 1+ few ANISOCYTOSIS (BEAKER) (test nxao=157) 2+ moderate MICROCYTES (BEAKER) (test pkzp=797) 2+ moderate POIKILOCYTES (BEAKER) (test omwa=056) 1+ few SPHEROCYTES (BEAKER) (test abpr=555) 1+ few ARTIFACT (CELLAVISION)(BEAKER) (test qtle=1545) Present HELMET CELLS (CELLAVISION)(BEAKER) (test 1+ few wdji=4303) PLATELET CONCENTRATION (CELLAVISION)(BEAKER) Decreased (test yxdn=2202) Received comment: User comments: Slide comments:BASIC METABOLIC [id number] 07:38:00 Test Item Value Reference Range Comments SODIUM (BEAKER) (test 132 meq/L 136-145 tchx=204) POTASSIUM (BEAKER) (test 3.5 meq/L 3.5-5.1 ynob=718) CHLORIDE (BEAKER) (test 95 meq/L 98-107 hdoa=180) CO2 (BEAKER) (test 27 meq/L 22-29 wibn=391) BLOOD UREA NITROGEN 11 mg/dL 7-21 (BEAKER) (test eclh=870) CREATININE (BEAKER) (test 0.61 mg/dL 0.57-1.25 riii=663) GLUCOSE RANDOM (BEAKER) 94 mg/dL 70-105 (test tmfn=013) CALCIUM (BEAKER) (test 8.8 mg/dL 8.4-10.2 mypd=955) EGFR (BEAKER) (test 142 mL/min/1.73 sq m ESTIMATED GFR IS NOT qazk=6273) ACCURATE CREATININE CLEARANCE IN PREDICTING GLOMERULAR FILTRATION RATE. ESTIMATED GFR IS NOT APPLICABLE FOR DIALYSIS PATIENTS. CBC W/PLT COUNT & AUTO [id number] 12:37:00 Test Item Value Reference Range Comments WHITE BLOOD CELL COUNT (BEAKER) (test pikm=785) 8.5 K/ L 3.5-10.5 RED BLOOD CELL COUNT (BEAKER) (test ojyz=119) 4.16 M/ L 4.63-6.08 HEMOGLOBIN (BEAKER) (test swwo=039) 13.0 GM/DL 13.7-17.5 HEMATOCRIT (BEAKER) (test hsbc=179) 38.5 % 40.1-51.0 MEAN CORPUSCULAR VOLUME (BEAKER) (test dhso=199) 92.5 fL 79.0-92.2 MEAN CORPUSCULAR HEMOGLOBIN (BEAKER) (test 31.3 pg 25.7-32.2 thua=212) MEAN CORPUSCULAR HEMOGLOBIN CONC (BEAKER) (test 33.8 GM/DL 32.3-36.5 iirv=228) RED CELL DISTRIBUTION WIDTH (BEAKER) (test 15.2 % 11.6-14.4 jfyv=307) PLATELET COUNT (BEAKER) (test rnpu=588) 145 K/CU MM 150-450 MEAN PLATELET VOLUME (BEAKER) (test znca=466) 10.3 fL 9.4-12.4 NUCLEATED RED BLOOD CELLS (BEAKER) (test 0 /100 WBC 0-0 wntj=937) (CELLAVISION MANUAL DIFF)2018-06-18 12:37:00 Test Item Value Reference Range Comments NEUTROPHILS - REL (CELLAVISION)(BEAKER) (test 72 % vcte=6606) LYMPHOCYTES - REL (CELLAVISION)(BEAKER) (test 2 % xnoc=8112) BANDS - REL (CELLAVISION)(BEAKER) (test vrjx=6716) 25 % 0-10 ATYPICAL LYMPHOCYTES - REL (CELLAVISION)(BEAKER) 1 % 0-0 (test pksr=4905) NEUTROPHILS - ABS (CELLAVISION)(BEAKER) (test 6.12 K/ul 1.78-5.38 dktl=3044) LYMPHOCYTES - ABS (CELLAVISION)(BEAKER) (test 0.17 K/ul 1.32-3.57 qgyl=0731) BANDS - ABS (CELLAVISION)(BEAKER) (test oyrj=6908) 2.13 K/uL 0.00-0.80 ATYPICAL LYMPHOCYTES - ABS (CELLAVISION)(BEAKER) 0.09 K/uL 0.00-0.00 (test jeiz=2169) TOTAL COUNTED (BEAKER) (test pphi=7337) 100 RBC MORPHOLOGY (BEAKER) (test eujn=751) Normal SMUDGE CELLS (BEAKER) (test lgyg=6181) Present GIANT PLATELETS (BEAKER) (test yfyi=114) Present TOXIC GRANULATION (BEAKER) (test ezni=397) Present PLATELET CONCENTRATION (CELLAVISION)(BEAKER) (test Decreased ahyh=2583) Received comment: User comments: Slide comments:BASIC METABOLIC [id number] 12:04:00 Test Item Value Reference Range Comments SODIUM (BEAKER) (test 130 meq/L 136-145 ryva=157) POTASSIUM (BEAKER) (test 3.1 meq/L 3.5-5.1 latu=992) CHLORIDE (BEAKER) (test 93 meq/L 98-107 iyne=331) CO2 (BEAKER) (test 27 meq/L 22-29 dlgt=863) BLOOD UREA NITROGEN < mg/dL 7-21 (BEAKER) (test zbfn=035) CREATININE (BEAKER) (test 0.66 mg/dL 0.57-1.25 hcus=473) GLUCOSE RANDOM (BEAKER) 157 mg/dL 70-105 (test otzw=857) CALCIUM (BEAKER) (test 8.6 mg/dL 8.4-10.2 vmyp=185) EGFR (BEAKER) (test 129 mL/min/1.73 sq m ESTIMATED GFR IS NOT gphz=8894) ACCURATE CREATININE CLEARANCE IN PREDICTING GLOMERULAR FILTRATION RATE. ESTIMATED GFR IS NOT APPLICABLE FOR DIALYSIS PATIENTS. VANCOMYCIN LEVEL, [id number] 12:02:00 Test Item Value Reference Range Comments VANCOMYCIN RANDOM (BEAKER) (test zzhw=914) 1.3 ug/mL Reference Range: No [id number] 12:00:00 Test Item Value Reference Range Comments MAGNESIUM (BEAKER) (test jqtb=546) 2.2 mg/dL 1.6-2.6 SPUTUM CULTURE + GRAM [id number] 11:45:00 Test Item Value Reference Range Comments CULTURE (BEAKER) (test PSEUDOMONAS AERUGINOSA 4+ Pseudomonas uhdp=8526) aeruginosa Amikacin (test code=1) Susceptible 0-16 , [...] CULTURE (BEAKER) (test PSEUDOMONAS AERUGINOSA 4+ Pseudomonas cets=4503) aeruginosa Amikacin (test code=1) Susceptible 0-16 , [...] GRAM STAIN RESULT 1+ WBCs (BEAKER) (test oswa=9735) GRAM STAIN RESULT 15-20 epithelial cells (BEAKER) (test uqdw=495790) GRAM STAIN RESULT <1+ gram negative (BEAKER) (test coccobacilli hajs=115603) GRAM STAIN RESULT <1+ gram positive (BEAKER) (test cocci in pairs esqu=001034) GRAM STAIN RESULT <1+ yeast with (BEAKER) (test pseudohyphae kcqx=787228) GRAM STAIN RESULT 1+ gram variable rods (BEAKER) (test upur=113904) 1+ Normal respiratory maximo presentC W/PLT COUNT & AUTO [id number] 18:36:00 Test Item Value Reference Range Comments WHITE BLOOD CELL COUNT (BEAKER) (test nygo=431) 7.3 K/ L 3.5-10.5 RED BLOOD CELL COUNT (BEAKER) (test zhye=390) 4.53 M/ L 4.63-6.08 HEMOGLOBIN (BEAKER) (test zgai=324) 14.4 GM/DL 13.7-17.5 HEMATOCRIT (BEAKER) (test dxuk=270) 42.2 % 40.1-51.0 MEAN CORPUSCULAR VOLUME (BEAKER) (test ffme=246) 93.2 fL 79.0-92.2 MEAN CORPUSCULAR HEMOGLOBIN (BEAKER) (test 31.8 pg 25.7-32.2 oxcx=833) MEAN CORPUSCULAR HEMOGLOBIN CONC (BEAKER) (test 34.1 GM/DL 32.3-36.5 cdiz=082) RED CELL DISTRIBUTION WIDTH (BEAKER) (test 15.0 % 11.6-14.4 miwv=355) PLATELET COUNT (BEAKER) (test zhpm=458) 170 K/CU MM 150-450 MEAN PLATELET VOLUME (BEAKER) (test iqvp=161) 10.1 fL 9.4-12.4 NUCLEATED RED BLOOD CELLS (BEAKER) (test 0 /100 WBC 0-0 eoti=375) NEUTROPHILS RELATIVE PERCENT (BEAKER) (test 92 % slek=869) LYMPHOCYTES RELATIVE PERCENT (BEAKER) (test 4 % yjmf=750) MONOCYTES RELATIVE PERCENT (BEAKER) (test 2 % lrwh=803) EOSINOPHILS RELATIVE PERCENT (BEAKER) (test 0 % nler=217) BASOPHILS RELATIVE PERCENT (BEAKER) (test 0 % tmqq=996) NEUTROPHILS ABSOLUTE COUNT (BEAKER) (test 6.75 K/ L 1.78-5.38 nzrl=361) LYMPHOCYTES ABSOLUTE COUNT (BEAKER) (test 0.27 K/ L 1.32-3.57 kljb=528) MONOCYTES ABSOLUTE COUNT (BEAKER) (test 0.15 K/ L 0.30-0.82 tlju=873) EOSINOPHILS ABSOLUTE COUNT (BEAKER) (test 0.00 K/ L 0.04-0.54 csfb=027) BASOPHILS ABSOLUTE COUNT (BEAKER) (test 0.02 K/ L 0.01-0.08 krax=847) IMMATURE GRANULOCYTES-RELATIVE PERCENT (BEAKER) 2 % 0-1 (test xwuq=2071) [id number] 14:37:00 Test Item Value Reference Range Comments PROCALCITONIN (BEAKER) (test grix=0821) 0.08 ng/mL <0.05 SEPSIS RISK (ng/mL)Low: 0.05-0.50Intermediate: 0.51-2.00High: & gt;=2.01LACTIC ACID, [id number] 13:43:00 Test Item Value Reference Range Comments LACTATE BLOOD VENOUS (2) 2.4 mmol/L 0.5-2.2 Specimen slightly hemolyzed (BEAKER) (test cmnp=2453) TISSUE [id number] 13:24:00Surgical Pathology Report Case: [id number] Authorizing Provider: Jennifer Fraire MD Collected: 06/09/2018 1735 Ordering Location: [address] Received: 06/10/2018 0811 Cardiovascular Pathologist: Jennifer Hull MD Specimen: SoftTissue, Other, LEFT SUPRAGLOTTIC MASS LEFT SUPRAGLOTTIC MASS, LARYNGOSCOPIC BIOPSY: - ATYPICAL SQUAMOUS PROLIFERATION (SEE COMMENT) Signing Pathologist Direct Phone Line: [phone] These are superficial fragments with hyperplasia, keratosis and dysplasia. Note is made of thehistory of chemoradiation. Ulceration, inflammation, atypical stromal cells and necrosis seen, may be due to the effect of chemoradiation. Immunohistochemical studies for AE1/AE3 and p53 confirm that the atypical cells in the stroma are likely reactive stromal cells. No invasive carcinoma is seen. Thebiopsy may not be security systems sales representative of the entirelesion; Clinical correlation is recommended.58313; 94290; 86618Bxzvthzqh mass Left subglottic massThe specimen is received in a fluidless container labeled with patient information and labeled "left supraglottic mass" consisting of four fragments of red soft tissue ranging from 0.1 to 0.4 cm, submitted entirely A1. CG/pl PERFORMEDThe interpretation of this case included the use of immunohistochemistry or special stains. p53 and AE1/OJ9Drguzhzvoprfqltscnif technical testing was performed at [facility], Pathology Laboratory where it was [...] ESOPH, SWALLOW FUNCTION , WITH CINE OR [id number] 12:08:00Reason for exam:->silent aspiration evaluationFINAL REPORT Modified [...] MDReport Verified Date/Time: 06/17/2018 12:08:38 Reading Location: [address] Consult Reading Room [id number] 09:44:00 Test Item Value Reference Range Comments MAGNESIUM (BEAKER) (test cpah=231) 1.9 mg/dL 1.6-2.6 [id number] 09:44:00 Test Item Value Reference Range Comments PHOSPHORUS (BEAKER) (test trnu=652) 2.9 mg/dL 2.3-4.7 RAD, CHEST, 1 VIEW, NON [id number] 08:16:00Reason for exam:->SOBShould this be performed at [...] MDReport Verified Date/Time: 06/17/2018 08:16:46 Reading Location: [facility] Radiology Reading Room BASIC METABOLIC [id number] 06:25:00 Test Item Value Reference Range Comments SODIUM (BEAKER) (test 134 meq/L 136-145 mvtp=134) POTASSIUM (BEAKER) (test 3.7 meq/L 3.5-5.1 myeb=927) CHLORIDE (BEAKER) (test 95 meq/L 98-107 ytxa=205) CO2 (BEAKER) (test 31 meq/L 22-29 gbcw=039) BLOOD UREA NITROGEN 15 mg/dL 7-21 (BEAKER) (test vcqq=269) CREATININE (BEAKER) (test 0.77 mg/dL 0.57-1.25 fagr=867) GLUCOSE RANDOM (BEAKER) 89 mg/dL 70-105 (test xwcm=400) CALCIUM (BEAKER) (test 8.9 mg/dL 8.4-10.2 wjvd=832) EGFR (BEAKER) (test 108 mL/min/1.73 sq m ESTIMATED GFR IS NOT jule=7434) ACCURATE CREATININE CLEARANCE IN PREDICTING GLOMERULAR FILTRATION RATE. ESTIMATED GFR IS NOT APPLICABLE FOR DIALYSIS PATIENTS. VANCOMYCIN LEVEL, [id number] 06:25:00 Test Item Value Reference Range Comments VANCOMYCIN RANDOM (BEAKER) (test qqrm=598) 9.6 ug/mL Reference Range: No NormalsDraw 30 min prior to scheduled dose, HOLD if level & gt; 20 mcg/mL, informMD.RESPIRATORY PANEL [id number] 12:23:00 Test Item Value Reference Range Comments HUMAN METAPNEUMOVIRUS Not detected Not detected, (BEAKER) (test kpan=6615) Equivocal RHINOVIRUS (BEAKER) (test Not detected Not detected, tfzr=7393) Equivocal INFLUENZA A (BEAKER) (test Not detected Not detected, tgak=7040) Equivocal INFLUENZA A (NO SUBTYPE) Not detected, (test daip=5051) Equivocal INFLUENZA A SUBTYPE H1 Not detected, (BEAKER) (test avcr=4407) Equivocal INFLUENZA A SUBTYPE H3 Not detected, (BEAKER) (test zrav=3177) Equivocal INFLUENZA A SUBTYPE H1-2009 Not detected, (BEAKER) (test qqfe=5155) Equivocal INFLUENZA B (BEAKER) (test Not detected Not detected, ylnw=3937) Equivocal RESPIRATORY SYNCYTIAL VIRUS Not detected Not detected, (BEAKER) (test xykb=2387) Equivocal PARAINFLUENZA VIRUS 1 Not detected Not detected, (BEAKER) (test qrix=1298) Equivocal PARAINFLUENZA VIRUS 2 Not detected Not detected, (BEAKER) (test nowz=8871) Equivocal PARAINFLUENZA VIRUS 3 Not detected Not detected, (BEAKER) (test kgoz=7951) Equivocal PARAINFLUENZA VIRUS 4 Not detected Not detected, (BEAKER) (test ifvj=4112) Equivocal ADENOVIRUS (BEAKER) (test Not detected Not detected, hbkp=4948) Equivocal CORONAVIRUS 229E (BEAKER) Detected Not detected, Droplet isolation. (test odiq=5800) Equivocal Consider stopping antibiotics. CORONAVIRUS HKU1 (BEAKER) Not detected Not detected, (test uwel=7387) Equivocal CORONAVIRUS NL63 (BEAKER) Not detected Not detected, (test mzlm=9705) Equivocal CORONAVIRUS OC43 (BEAKER) Not detected Not detected, (test xdjl=6774) Equivocal BORDETELLA PERTUSSIS (BEAKER) Not detected Not detected, (test mevb=6289) Equivocal CHLAMYDOPHILA PNEUMONIAE Not detected Not detected, (BEAKER) (test uokv=3376) Equivocal MYCOPLASMA PNEUMONIAE Not detected Not detected, (BEAKER) (test edcq=8148) Equivocal Other viruses and bacteria not targeted by this PCR panel cannot be excluded; therefore clinical correlation and follow up of serology, culture results, and other molecular studies is required. The results are not intended to be used as the sole means for clinical diagnosis or patient management decisions. This sample was tested at the [facility] using the [employer] Respiratory Panel. It is FDA cleared and has been verified and approved by the [facility] for clinical use on nasal swab specimens. It is not FDA-cleared for use on bronchial wash/lavage samples. However, for this sample type, validation was performed and test characteristics were determined and approved, by [facility] for clinical use under the Clinical Laboratory Improvement Amendments (CLIA) of 1988 requirements. Therefore, FDA clearance isnot required. This laboratory is CLIA-certified and [employer] (CAP)-accredited to perform high complexity testing.CBC W/PLT COUNT & AUTO [id number] 11:27:00 Test Item Value Reference Range Comments WHITE BLOOD CELL COUNT (BEAKER) (test thah=345) 10.5 K/ L 3.5-10.5 RED BLOOD CELL COUNT (BEAKER) (test tlyn=341) 4.20 M/ L 4.63-6.08 HEMOGLOBIN (BEAKER) (test jhnl=116) 13.6 GM/DL 13.7-17.5 HEMATOCRIT (BEAKER) (test sdsj=379) 40.5 % 40.1-51.0 MEAN CORPUSCULAR VOLUME (BEAKER) (test qotv=731) 96.4 fL 79.0-92.2 MEAN CORPUSCULAR HEMOGLOBIN (BEAKER) (test 32.4 pg 25.7-32.2 qvio=837) MEAN CORPUSCULAR HEMOGLOBIN CONC (BEAKER) (test 33.6 GM/DL 32.3-36.5 vgsm=663) RED CELL DISTRIBUTION WIDTH (BEAKER) (test 15.1 % 11.6-14.4 lsrp=419) PLATELET COUNT (BEAKER) (test rpor=938) 142 K/CU MM 150-450 MEAN PLATELET VOLUME (BEAKER) (test kldw=922) 10.3 fL 9.4-12.4 NUCLEATED RED BLOOD CELLS (BEAKER) (test 0 /100 WBC 0-0 esmy=984) (CELLAVISION MANUAL DIFF)2018-06-16 11:27:00 Test Item Value Reference Range Comments NEUTROPHILS - REL (CELLAVISION)(BEAKER) (test 51 % xamw=3858) LYMPHOCYTES - REL (CELLAVISION)(BEAKER) (test 1 % hkao=2136) MONOCYTES - REL (CELLAVISION)(BEAKER) (test 2 % wkzq=7601) MYELOCYTES - REL (CELLAVISION)(BEAKER) (test 1 % 0-0 eaqd=3879) PROMYELOCYTES - REL (CELLAVSION)(BEAKER) (test 1 % 0-0 jitr=9966) BANDS - REL (CELLAVISION)(BEAKER) (test 44 % 0-10 lltt=5101) NEUTROPHILS - ABS (CELLAVISION)(BEAKER) (test 5.36 K/ul 1.78-5.38 uaaj=7234) LYMPHOCYTES - ABS (CELLAVISION)(BEAKER) (test 0.11 K/ul 1.32-3.57 wpql=9663) MONOCYTES - ABS (CELLAVISION)(BEAKER) (test 0.21 K/uL 0.30-0.82 acqg=4501) MYELOCYTES-ABS (CELLAVISION)(BEAKER) (test 0.11 K/uL 0.00-0.00 cfar=9346) PROMYELOCYTES - ABS (CELLAVISION)(BEAKER) (test 0.11 K/uL 0.00-0.00 opvr=0842) BANDS - ABS (CELLAVISION)(BEAKER) (test 4.62 K/uL 0.00-0.80 cmbo=7633) TOTAL COUNTED (BEAKER) (test yckf=8235) 100 MANUAL NRBC PER 100 CELLS (BEAKER) (test 1 /100 WBC 0-0 ycvc=4335) SMUDGE CELLS (BEAKER) (test lezz=2787) Present GIANT PLATELETS (BEAKER) (test zuns=341) Present POLYCHROMATOPHILLIC RBCS(BEAKER) (test lclj=315) 1+ few ANISOCYTOSIS (BEAKER) (test dkks=909) 1+ few MICROCYTES (BEAKER) (test nrja=994) 1+ few POIKILOCYTES (BEAKER) (test yuvz=205) 1+ few ARTIFACT (CELLAVISION)(BEAKER) (test bhdl=3615) Present PLATELET CONCENTRATION (CELLAVISION)(BEAKER) Adequate (test jmuc=1122) Received comment: User comments: Slide comments:CT, CHEST WITH IV CONTRAST- PE TEST [id number] 09:53:00Worsening hypoxia s/o diagnosis and excision of [...] MDReport Verified Date/Time: 06/16/2018 09:53:01 Reading Location: [facility] Diagnostic Imaging Reading Room - [place] [address] RAD, CHEST, 1 VIEW, NON [id number] 07:36:00Reason for exam:->recent pneumothorax, new trachShould [...] MDReport Verified Date/Time: 06/16/2018 07:36:27 Reading Location: [facility] Radiology Reading Room 07: 36 AMBASIC METABOLIC [id number] 05:45:00 Test Item Value Reference Range Comments SODIUM (BEAKER) (test 132 meq/L 136-145 chjx=614) POTASSIUM (BEAKER) (test 3.9 meq/L 3.5-5.1 hpbf=893) CHLORIDE (BEAKER) (test 92 meq/L 98-107 razk=654) CO2 (BEAKER) (test 27 meq/L 22-29 braf=942) BLOOD UREA NITROGEN 13 mg/dL 7-21 (BEAKER) (test vjgr=313) CREATININE (BEAKER) (test 0.83 mg/dL 0.57-1.25 uygp=750) GLUCOSE RANDOM (BEAKER) 129 mg/dL 70-105 (test qnkb=259) CALCIUM (BEAKER) (test 9.5 mg/dL 8.4-10.2 hnkd=429) EGFR (BEAKER) (test 99 mL/min/1.73 sq m ESTIMATED GFR IS NOT jcqn=9551) ACCURATE CREATININE CLEARANCE IN PREDICTING GLOMERULAR FILTRATION RATE. ESTIMATED GFR IS NOT APPLICABLE FOR DIALYSIS PATIENTS. [id number] 18:12:00 Test Item Value Reference Range Comments MAGNESIUM (BEAKER) (test 2.0 mg/dL 1.6-2.6 Specimen slightly hemolyzed rzud=589) BASIC METABOLIC [id number] 18:12:00 Test Item Value Reference Range Comments SODIUM (BEAKER) (test 130 meq/L 136-145 twiy=446) POTASSIUM (BEAKER) (test 3.7 meq/L 3.5-5.1 Specimen slightly pjkp=199) hemolyzed CHLORIDE (BEAKER) (test 91 meq/L 98-107 ankh=259) CO2 (BEAKER) (test 27 meq/L 22-29 pkxa=367) BLOOD UREA NITROGEN 14 mg/dL 7-21 (BEAKER) (test viba=324) CREATININE (BEAKER) (test 0.78 mg/dL 0.57-1.25 Specimen slightly sxwr=401) hemolyzed GLUCOSE RANDOM (BEAKER) 85 mg/dL 70-105 (test vmpu=516) CALCIUM (BEAKER) (test 8.9 mg/dL 8.4-10.2 bjod=551) EGFR (BEAKER) (test 107 mL/min/1.73 sq m ESTIMATED GFR IS NOT msiu=6894) ACCURATE CREATININE CLEARANCE IN PREDICTING GLOMERULAR FILTRATION RATE. ESTIMATED GFR IS NOT APPLICABLE FOR DIALYSIS PATIENTS. RAD, CHEST, 1 VIEW, NON [id number] 13:18:00Reason for exam:->recent pneumothorax, new trachShould this [...] Additional findings: None. Signed: JR Humberto, Jim[facility] Verified Date/Time: 06/15/2018 13:18:45 Reading Location: [address] Neuro Reading Room BLOOD GAS, [id number] 11:41:00 Test Item Value Reference Range Comments PH ARTERIAL (BEAKER) (test zfnt=178) 7.50 7.35-7.45 PCO2 ARTERIAL (BEAKER) (test fjhr=926) 40 mmHg 35-45 PO2 ARTERIAL (BEAKER) (test ngrc=474) 335 mmHg 80-90 O2 SATURATION ARTERIAL (BEAKER) (test ewpm=888) 99.8 % 96.0-97.0 HCO3 ARTERIAL (BEAKER) (test flgy=278) 29 mmol/L 21-29 BASE EXCESS ARTERIAL (BEAKER) (test uzlf=704) 6.5 mmol/L -2.0-3.0 PATIENT TEMPERATURE (BEAKER) (test ghsb=7463) 39.3 C FIO2 (BEAKER) (test qcsj=6963) 100.0 % Obtain one hour post initaition of vent support \\[id number]\\[id number] 09: 49:00 Test Item Value Reference Range Comments TROPONIN I (BEAKER) (test fahf=675) < ng/mL 0.00-0.03 Troponin I (TnI) levels [...] Range Comments B-TYPE NATRIURETIC PEPTIDE (BEAKER) (test qett=088) 66 pg/mL 0-100 [id number] 09:29:00 Test Item Value Reference Range Comments D-DIMER QUANTITATIVE (BEAKER) (test nidv=918) 1.59 MG/L FEU <0.50 Intended Use: The D-Dimer Assay can be used to aid in the diagnosis of Deep Vein Thrombosis (DVT) and Pulmonary Embolism Disease (PED).In patients with low pre-test probability, various studies concerning STA Liatest D-dimer test have reported that with a cutoff value of 0.50 MG/L FEU, the Negative Predictive Value (NPV) regarding the exclusion of thrombosis is within 95-100% range.[id number] 09:12:00 Test Item Value Reference Range Comments FIBRINOGEN LEVEL (BEAKER) (test yflg=596) 621 mg/dl 225-434 [id number] 09:10:00 Test Item Value Reference Range Comments PHOSPHORUS (BEAKER) (test trly=253) 2.8 mg/dL 2.3-4.7 [id number] 09:10:00 Test Item Value Reference Range Comments MAGNESIUM (BEAKER) (test oula=748) 1.9 mg/dL 1.6-2.6 COMPREHENSIVE METABOLIC [id number] 09:10:00 Test Item Value Reference Range Comments TOTAL PROTEIN (BEAKER) 5.9 gm/dL 6.0-8.3 (test zstl=664) ALBUMIN (BEAKER) (test 3.3 g/dL 3.5-5.0 vqye=6671) ALKALINE PHOSPHATASE 73 U/L 40-150 (BEAKER) (test woap=410) BILIRUBIN TOTAL (BEAKER) 1.3 mg/dL 0.2-1.2 (test ejcr=153) SODIUM (BEAKER) (test 127 meq/L 136-145 xhhn=188) POTASSIUM (BEAKER) (test 3.8 meq/L 3.5-5.1 dfau=171) CHLORIDE (BEAKER) (test 89 meq/L 98-107 jids=099) CO2 (BEAKER) (test 28 meq/L 22-29 lxml=516) BLOOD UREA NITROGEN 14 mg/dL 7-21 (BEAKER) (test xten=142) CREATININE (BEAKER) (test 0.78 mg/dL 0.57-1.25 wuhr=717) GLUCOSE RANDOM (BEAKER) 87 mg/dL 70-105 (test lkuj=051) CALCIUM (BEAKER) (test 8.8 mg/dL 8.4-10.2 hoff=069) AST (SGOT) (BEAKER) (test 23 U/L 5-34 toqp=192) ALT (SGPT) (BEAKER) (test 26 U/L 6-55 tuso=377) EGFR (BEAKER) (test 107 mL/min/1.73 sq ESTIMATED GFR IS NOT igmz=7640) m ACCURATE CREATININE CLEARANCE IN PREDICTING GLOMERULAR FILTRATION RATE. ESTIMATED GFR IS NOT APPLICABLE FOR DIALYSIS PATIENTS. [id number] 09:01:00 Test Item Value Reference Range Comments PROTIME (BEAKER) (test gkom=521) 15.2 seconds 11.7-14.7 INR (BEAKER) (test ppko=170) 1.2 <=5.9 PARTIAL THROMBOPLASTIN TIME (BEAKER) (test 31.6 seconds 22.5-36.0 lbyd=817) RECOMMENDED COUMADIN/WARFARIN INR THERAPY RANGESSTANDARD DOSE: 2.0 - 3.0 Includes: PROPHYLAXIS forvenous thrombosis, systemic embolization; TREATMENT for venous thrombosis and/or pulmonary embolus.HIGH RISK: Target INR is 2.5-3.5 for patients with mechanical heart valves.LACTIC ACID, [id number] 08:51: 00 Test Item Value Reference Range Comments LACTATE BLOOD ARTERIAL (2) 0.8 mmol/L 0.5-2.2 Specimen slightly hemolyzed (BEAKER) (test zuuz=2610) BLOOD GAS, [id number] 08:40:00 Test Item Value Reference Range Comments PH ARTERIAL (BEAKER) (test eyiy=869) 7.51 7.35-7.45 PCO2 ARTERIAL (BEAKER) (test qbag=969) 40 mmHg 35-45 PO2 ARTERIAL (BEAKER) (test reub=628) 58 mmHg 80-90 O2 SATURATION ARTERIAL (BEAKER) (test cefk=951) 90.0 % 96.0-97.0 HCO3 ARTERIAL (BEAKER) (test oxoq=897) 31 mmol/L 21-29 BASE EXCESS ARTERIAL (BEAKER) (test pqyn=288) 8.3 mmol/L -2.0-3.0 PATIENT TEMPERATURE (BEAKER) (test hysz=3972) 39.1 C FIO2 (BEAKER) (test mnwz=0244) 80.0 % [id number] 08:00:00 Test Item Value Reference Range Comments MAGNESIUM (BEAKER) (test gcep=460) 1.8 mg/dL 1.6-2.6 Add onCBC W/PLT COUNT & AUTO [id number] 06:45:00 Test Item Value Reference Range Comments WHITE BLOOD CELL COUNT (BEAKER) (test aqxp=190) 10.2 K/ L 3.5-10.5 RED BLOOD CELL COUNT (BEAKER) (test ziho=193) 4.12 M/ L 4.63-6.08 HEMOGLOBIN (BEAKER) (test buvf=705) 13.2 GM/DL 13.7-17.5 HEMATOCRIT (BEAKER) (test cyls=177) 40.8 % 40.1-51.0 MEAN CORPUSCULAR VOLUME (BEAKER) (test mefm=394) 99.0 fL 79.0-92.2 MEAN CORPUSCULAR HEMOGLOBIN (BEAKER) (test 32.0 pg 25.7-32.2 nlxv=532) MEAN CORPUSCULAR HEMOGLOBIN CONC (BEAKER) (test 32.4 GM/DL 32.3-36.5 vcag=776) RED CELL DISTRIBUTION WIDTH (BEAKER) (test 15.2 % 11.6-14.4 cqbc=262) PLATELET COUNT (BEAKER) (test svdd=283) 146 K/CU MM 150-450 MEAN PLATELET VOLUME (BEAKER) (test cxwj=640) 9.9 fL 9.4-12.4 NUCLEATED RED BLOOD CELLS (BEAKER) (test 0 /100 WBC 0-0 jqnn=347) NEUTROPHILS RELATIVE PERCENT (BEAKER) (test 92 % yhyc=970) LYMPHOCYTES RELATIVE PERCENT (BEAKER) (test 3 % rhuc=603) MONOCYTES RELATIVE PERCENT (BEAKER) (test 2 % celw=237) EOSINOPHILS RELATIVE PERCENT (BEAKER) (test 0 % msog=351) BASOPHILS RELATIVE PERCENT (BEAKER) (test 0 % cfzr=388) NEUTROPHILS ABSOLUTE COUNT (BEAKER) (test 9.38 K/ L 1.78-5.38 hreo=938) LYMPHOCYTES ABSOLUTE COUNT (BEAKER) (test 0.30 K/ L 1.32-3.57 dgjc=303) MONOCYTES ABSOLUTE COUNT (BEAKER) (test 0.23 K/ L 0.30-0.82 artz=315) EOSINOPHILS ABSOLUTE COUNT (BEAKER) (test 0.00 K/ L 0.04-0.54 oygw=527) BASOPHILS ABSOLUTE COUNT (BEAKER) (test 0.03 K/ L 0.01-0.08 ozpr=143) IMMATURE GRANULOCYTES-RELATIVE PERCENT (BEAKER) 3 % 0-1 (test lrob=6412) BASIC METABOLIC [id number] 06:35:00 Test Item Value Reference Range Comments SODIUM (BEAKER) (test 127 meq/L 136-145 ytmx=607) POTASSIUM (BEAKER) (test 3.8 meq/L 3.5-5.1 xhyy=291) CHLORIDE (BEAKER) (test 91 meq/L 98-107 xeoj=002) CO2 (BEAKER) (test 27 meq/L 22-29 ghvs=289) BLOOD UREA NITROGEN 12 mg/dL 7-21 (BEAKER) (test etid=922) CREATININE (BEAKER) (test 0.75 mg/dL 0.57-1.25 dmhi=078) GLUCOSE RANDOM (BEAKER) 88 mg/dL 70-105 (test ljoy=818) CALCIUM (BEAKER) (test 8.6 mg/dL 8.4-10.2 tnqb=705) EGFR (BEAKER) (test 112 mL/min/1.73 sq m ESTIMATED GFR IS NOT ncbk=4634) ACCURATE CREATININE CLEARANCE IN PREDICTING GLOMERULAR FILTRATION RATE. ESTIMATED GFR IS NOT APPLICABLE FOR DIALYSIS PATIENTS. RAD, CHEST, 1 VIEW, NON [id number] 05:10:00Reason for exam:->sob, tachypneaShould this be performed [...] Additional findings: None. Signed: Sridevi Carrilloeport Verified Date/Time: 06/15/2018 05:10:33 Reading Location: [address] Reading Room POCT-LACTIC ACID, [id number] 04:30:00 Test Item Value Reference Range Comments POC-LACTIC ACID, VENOUS 1.1 mmol/L 0.9-1.7 TESTED AT [facility] [address] [facility] (BEAKER) (test ftak=0554) [facility] [address] URINALYSIS W/ REFLEX URINE [id number] 20:03:00 Test Item Value Reference Range Comments COLOR (BEAKER) (test szeh=028) Light Yellow CLARITY (BEAKER) (test abzj=719) Hazy SPECIFIC GRAVITY UA (BEAKER) (test zdhk=228) 1.014 1.001-1.035 PH UA (BEAKER) (test rcfu=096) 7.5 5.0-8.0 PROTEIN UA (BEAKER) (test hdwt=033) Negative Negative GLUCOSE UA (BEAKER) (test ozqb=602) Negative Negative KETONES UA (BEAKER) (test uihm=739) Negative Negative BILIRUBIN UA (BEAKER) (test dowa=472) Negative Negative BLOOD UA (BEAKER) (test zokh=532) Negative Negative NITRITE UA (BEAKER) (test jnks=602) Negative Negative LEUKOCYTE ESTERASE UA (BEAKER) (test egtp=384) Negative Negative UROBILINOGEN UA (BEAKER) (test ijcv=074) 0.2 mg/dL 0.2-1.0 RBC UA (BEAKER) (test mqsf=667) 0 /HPF WBC UA (BEAKER) (test ncdv=419) 0 /HPF BACTERIA (BEAKER) (test jhnc=851) Few MUCUS (BEAKER) (test viyw=8319) Rare HYALINE CASTS (BEAKER) (test mjlw=197) 3 /LPF SOURCE(BEAKER) (test spda=9315) RAD, CHEST, 1 VIEW, NON [id number] 19:10:00Reason for exam:->SUSUPECTED INFECTIONShould this be performed [...] Verified Date/Time: 06/14/2018 19:10: 10 Reading Location: [address] Reading Room CBC W/PLT COUNT & AUTO [id number] 04:36:00 Test Item Value Reference Range Comments WHITE BLOOD CELL COUNT (BEAKER) (test jsna=041) 11.4 K/ L 3.5-10.5 RED BLOOD CELL COUNT (BEAKER) (test jgje=246) 4.37 M/ L 4.63-6.08 HEMOGLOBIN (BEAKER) (test pyvg=943) 14.1 GM/DL 13.7-17.5 HEMATOCRIT (BEAKER) (test mhsp=452) 44.0 % 40.1-51.0 MEAN CORPUSCULAR VOLUME (BEAKER) (test uelu=152) 100.7 fL 79.0-92.2 MEAN CORPUSCULAR HEMOGLOBIN (BEAKER) (test 32.3 pg 25.7-32.2 oxhx=711) MEAN CORPUSCULAR HEMOGLOBIN CONC (BEAKER) (test 32.0 GM/DL 32.3-36.5 tdzf=583) RED CELL DISTRIBUTION WIDTH (BEAKER) (test 14.4 % 11.6-14.4 nphr=355) PLATELET COUNT (BEAKER) (test bsmy=452) 188 K/CU MM 150-450 MEAN PLATELET VOLUME (BEAKER) (test ybtm=487) 10.7 fL 9.4-12.4 NUCLEATED RED BLOOD CELLS (BEAKER) (test 0 /100 WBC 0-0 lfoz=419) NEUTROPHILS RELATIVE PERCENT (BEAKER) (test 95 % hkvo=193) LYMPHOCYTES RELATIVE PERCENT (BEAKER) (test 1 % xizf=027) MONOCYTES RELATIVE PERCENT (BEAKER) (test 2 % gatf=003) EOSINOPHILS RELATIVE PERCENT (BEAKER) (test 0 % bgfo=332) BASOPHILS RELATIVE PERCENT (BEAKER) (test 0 % npqu=350) NEUTROPHILS ABSOLUTE COUNT (BEAKER) (test 10.81 K/ L 1.78-5.38 junj=387) LYMPHOCYTES ABSOLUTE COUNT (BEAKER) (test 0.16 K/ L 1.32-3.57 ajvn=148) MONOCYTES ABSOLUTE COUNT (BEAKER) (test 0.26 K/ L 0.30-0.82 chwm=830) EOSINOPHILS ABSOLUTE COUNT (BEAKER) (test 0.00 K/ L 0.04-0.54 ycjo=065) BASOPHILS ABSOLUTE COUNT (BEAKER) (test 0.03 K/ L 0.01-0.08 dlge=537) IMMATURE GRANULOCYTES-RELATIVE PERCENT (BEAKER) 2 % 0-1 (test zbph=2596) RAD, CHEST, 1 VIEW, NON [id number] 04:13:00Reason for exam:->recent pneumothorax, new trachShould this [...] Additional findings: None. Signed: Sridevi Carrillo Verified Date/ Time: 06/14/2018 04:13:50 Reading Location: [address] Transitional Reading Room BLOOD GAS, [id number] 01:01:00 Test Item Value Reference Range Comments PH ARTERIAL (BEAKER) (test hsyx=634) 7.45 7.35-7.45 PCO2 ARTERIAL (BEAKER) (test wffz=374) 41 mmHg 35-45 PO2 ARTERIAL (BEAKER) (test ytxd=430) 109 mmHg 80-90 O2 SATURATION ARTERIAL (BEAKER) (test qohz=063) 98.2 % 96.0-97.0 HCO3 ARTERIAL (BEAKER) (test pbzg=706) 28 mmol/L 21-29 BASE EXCESS ARTERIAL (BEAKER) (test umdk=611) 3.4 mmol/L -2.0-3.0 PATIENT TEMPERATURE (BEAKER) (test cgxh=0887) 36.7 C FIO2 (BEAKER) (test eswv=8720) 40.0 % POCT-GLUCOSE [id number] 05:32:00 Test Item Value Reference Range Comments POC-GLUCOSE METER (BEAKER) 92 mg/dL 70-110 TESTED AT [address] (test oyau=3903) [facility] [address] RAD, CHEST, 1 VIEW, NON [id number] 05:03:00Reason for exam:->evaluate for pneumo r/t CTShould [...] Additional findings: None. Signed: Sridevi Carrillo Verified Date/ Time: 06/13/2018 05:03:31 Reading Location: [facility] [place] Transitional Reading Room [id number] 04:22:00 Test Item Value Reference Range Comments PARTIAL THROMBOPLASTIN TIME (BEAKER) (test 27.4 seconds 22.5-36.0 pyvq=686) PROTHROMBIN [id number] 04:21:00 Test Item Value Reference Range Comments PROTIME (BEAKER) (test qajh=855) 13.8 seconds 11.7-14.7 INR (BEAKER) (test bfzz=905) 1.1 <=5.9 RECOMMENDED COUMADIN/WARFARIN INR THERAPY RANGESSTANDARD DOSE: 2.0 - 3.0 Includes: PROPHYLAXIS forvenous thrombosis, systemic embolization; TREATMENT for venous thrombosis and/or pulmonary embolus.HIGH RISK: Target INR is 2.5-3.5 for patients with mechanical heart valves.[id number] 04:20:00 Test Item Value Reference Range Comments PHOSPHORUS (BEAKER) (test xeku=517) 3.1 mg/dL 2.3-4.7 [id number] 04:20:00 Test Item Value Reference Range Comments MAGNESIUM (BEAKER) (test bcps=042) 2.0 mg/dL 1.6-2.6 BASIC METABOLIC [id number] 04:20:00 Test Item Value Reference Range Comments SODIUM (BEAKER) (test 140 meq/L 136-145 gual=447) POTASSIUM (BEAKER) (test 3.7 meq/L 3.5-5.1 zcbq=270) CHLORIDE (BEAKER) (test 101 meq/L 98-107 tlyc=510) CO2 (BEAKER) (test 30 meq/L 22-29 ldsg=756) BLOOD UREA NITROGEN 13 mg/dL 7-21 (BEAKER) (test acga=809) CREATININE (BEAKER) (test 0.74 mg/dL 0.57-1.25 nvaj=206) GLUCOSE RANDOM (BEAKER) 97 mg/dL 70-105 (test gvwg=059) CALCIUM (BEAKER) (test 9.2 mg/dL 8.4-10.2 bvjf=638) EGFR (BEAKER) (test 113 mL/min/1.73 sq m ESTIMATED GFR IS NOT ikpb=5398) ACCURATE CREATININE CLEARANCE IN PREDICTING GLOMERULAR FILTRATION RATE. ESTIMATED GFR IS NOT APPLICABLE FOR DIALYSIS PATIENTS. CBC W/PLT COUNT & AUTO [id number] 04:14:00 Test Item Value Reference Range Comments WHITE BLOOD CELL COUNT (BEAKER) (test bwjd=270) 11.6 K/ L 3.5-10.5 RED BLOOD CELL COUNT (BEAKER) (test pljk=862) 4.30 M/ L 4.63-6.08 HEMOGLOBIN (BEAKER) (test ndgw=809) 13.9 GM/DL 13.7-17.5 HEMATOCRIT (BEAKER) (test doju=305) 43.3 % 40.1-51.0 MEAN CORPUSCULAR VOLUME (BEAKER) (test pttj=532) 100.7 fL 79.0-92.2 MEAN CORPUSCULAR HEMOGLOBIN (BEAKER) (test 32.3 pg 25.7-32.2 lrqh=731) MEAN CORPUSCULAR HEMOGLOBIN CONC (BEAKER) (test 32.1 GM/DL 32.3-36.5 xari=954) RED CELL DISTRIBUTION WIDTH (BEAKER) (test 14.1 % 11.6-14.4 iwvp=284) PLATELET COUNT (BEAKER) (test zavy=794) 182 K/CU MM 150-450 MEAN PLATELET VOLUME (BEAKER) (test ntgm=089) 10.7 fL 9.4-12.4 NUCLEATED RED BLOOD CELLS (BEAKER) (test 0 /100 WBC 0-0 gfof=803) NEUTROPHILS RELATIVE PERCENT (BEAKER) (test 89 % lqza=511) LYMPHOCYTES RELATIVE PERCENT (BEAKER) (test 3 % zcpp=504) MONOCYTES RELATIVE PERCENT (BEAKER) (test 6 % wybj=427) EOSINOPHILS RELATIVE PERCENT (BEAKER) (test 0 % bbkl=920) BASOPHILS RELATIVE PERCENT (BEAKER) (test 0 % rcil=919) NEUTROPHILS ABSOLUTE COUNT (BEAKER) (test 10.26 K/ L 1.78-5.38 yqty=594) LYMPHOCYTES ABSOLUTE COUNT (BEAKER) (test 0.39 K/ L 1.32-3.57 jsib=639) MONOCYTES ABSOLUTE COUNT (BEAKER) (test 0.74 K/ L 0.30-0.82 yzrm=422) EOSINOPHILS ABSOLUTE COUNT (BEAKER) (test 0.02 K/ L 0.04-0.54 qlwi=349) BASOPHILS ABSOLUTE COUNT (BEAKER) (test 0.03 K/ L 0.01-0.08 uhen=292) IMMATURE GRANULOCYTES-RELATIVE PERCENT (BEAKER) 1 % 0-1 (test ypmg=9473) POCT-GLUCOSE [id number] 00:14:00 Test Item Value Reference Range Comments POC-GLUCOSE METER (BEAKER) 126 mg/dL 70-110 TESTED AT [address] (test iigq=0167) [facility] [address] RAD, CHEST, 1 VIEW, NON [id number] 12:29:00Reason for exam:->s/p[ L thoracocentesisFINAL REPORT CLINICAL HISTORY: s/p[ L thoracocentesis TECHNIQUE: 1 view of the chest. COMPARISON: 06/12/2018 IMPRESSION: A tracheostomy tube is again seen. There is no pneumothorax. Bibasilar atelectasis is again noted. There is no significant appearing pleural fluid. The cardiomediastinal silhouette is magnified by technique. Signed: Jacqueline Hilliard MDReport Verified Date/Time:06/12/2018 12:29:27 Reading Location: [facility] C0[facility] Consult Reading Room POCT-GLUCOSE [id number] 12:10:00 Test Item Value Reference Range Comments POC-GLUCOSE METER (BEAKER) 194 mg/dL 70-110 TESTED AT [address] (test unhu=7810) [place] [address] [address], CHEST, WITH [id number] 10:26:00Premedicated for contrast allergy. With general anesthesia [...] malignancy in the thorax. Signed: Randolph Man Verified Date/Time: 06/12/2018 10:26:26 Reading Location: [facility] Diagnostic Imaging Reading Room - [place] [address], SOFT TISSUE NECK, [id number] 09:53: 00Premedicated for contrast allergy. With gneral [...] MDRnicolasort Verified Date/Time: 06/12/2018 09:53:06 Reading Location: [facility] B1 C013V Neuro Reading Room [id number] 06:00:00 Test Item Value Reference Range Comments PHOSPHORUS (BEAKER) (test shcl=614) 2.9 mg/dL 2.3-4.7 [id number] 06:00:00 Test Item Value Reference Range Comments MAGNESIUM (BEAKER) (test dvbf=962) 2.1 mg/dL 1.6-2.6 BASIC METABOLIC [id number] 06:00:00 Test Item Value Reference Range Comments SODIUM (BEAKER) (test 139 meq/L 136-145 ezol=981) POTASSIUM (BEAKER) (test 3.9 meq/L 3.5-5.1 broc=736) CHLORIDE (BEAKER) (test 104 meq/L 98-107 tdqj=089) CO2 (BEAKER) (test 26 meq/L 22-29 ryyk=612) BLOOD UREA NITROGEN 13 mg/dL 7-21 (BEAKER) (test vukt=665) CREATININE (BEAKER) (test 0.65 mg/dL 0.57-1.25 ymyr=469) GLUCOSE RANDOM (BEAKER) 109 mg/dL 70-105 (test grkk=450) CALCIUM (BEAKER) (test 9.5 mg/dL 8.4-10.2 ytiq=956) EGFR (BEAKER) (test 132 mL/min/1.73 sq m ESTIMATED GFR IS NOT edno=8258) ACCURATE CREATININE CLEARANCE IN PREDICTING GLOMERULAR FILTRATION RATE. ESTIMATED GFR IS NOT APPLICABLE FOR DIALYSIS PATIENTS. POCT-GLUCOSE [id number] 05:44:00 Test Item Value Reference Range Comments POC-GLUCOSE METER (BEAKER) 157 mg/dL 70-110 TESTED AT [facility] [address] [facility] (test rvnc=8915) [facility] [address] CBC W/PLT COUNT & AUTO [id number] 04:29:00 Test Item Value Reference Range Comments WHITE BLOOD CELL COUNT (BEAKER) (test duhx=659) 17.3 K/ L 3.5-10.5 RED BLOOD CELL COUNT (BEAKER) (test rhrp=719) 4.42 M/ L 4.63-6.08 HEMOGLOBIN (BEAKER) (test ytrn=535) 14.4 GM/DL 13.7-17.5 HEMATOCRIT (BEAKER) (test rnou=609) 43.7 % 40.1-51.0 MEAN CORPUSCULAR VOLUME (BEAKER) (test cmhv=233) 98.9 fL 79.0-92.2 MEAN CORPUSCULAR HEMOGLOBIN (BEAKER) (test 32.6 pg 25.7-32.2 umyc=395) MEAN CORPUSCULAR HEMOGLOBIN CONC (BEAKER) (test 33.0 GM/DL 32.3-36.5 fbux=470) RED CELL DISTRIBUTION WIDTH (BEAKER) (test 14.2 % 11.6-14.4 zbds=417) PLATELET COUNT (BEAKER) (test wpdu=560) 180 K/CU MM 150-450 MEAN PLATELET VOLUME (BEAKER) (test afho=921) 10.9 fL 9.4-12.4 NUCLEATED RED BLOOD CELLS (BEAKER) (test 0 /100 WBC 0-0 pzte=647) NEUTROPHILS RELATIVE PERCENT (BEAKER) (test 94 % ipcn=417) LYMPHOCYTES RELATIVE PERCENT (BEAKER) (test 2 % vjdj=498) MONOCYTES RELATIVE PERCENT (BEAKER) (test 3 % goal=184) EOSINOPHILS RELATIVE PERCENT (BEAKER) (test 0 % qtbn=936) BASOPHILS RELATIVE PERCENT (BEAKER) (test 0 % atqh=400) NEUTROPHILS ABSOLUTE COUNT (BEAKER) (test 16.28 K/ L 1.78-5.38 msox=511) LYMPHOCYTES ABSOLUTE COUNT (BEAKER) (test 0.28 K/ L 1.32-3.57 regk=982) MONOCYTES ABSOLUTE COUNT (BEAKER) (test 0.55 K/ L 0.30-0.82 xcym=933) EOSINOPHILS ABSOLUTE COUNT (BEAKER) (test 0.00 K/ L 0.04-0.54 lmnl=583) BASOPHILS ABSOLUTE COUNT (BEAKER) (test 0.02 K/ L 0.01-0.08 oipd=346) IMMATURE GRANULOCYTES-RELATIVE PERCENT (BEAKER) 1 % 0-1 (test ykzx=6824) RAD, CHEST, 1 VIEW, NON [id number] 04:26:00Reason for exam:->evaluate for pneumo r/t CTShould this be performed at the bedside?->YesFINAL REPORT CLINICAL INDICATION: Support lines. Comparison: 2018 The cardiomediastinal contours are stable. The lung volumes remain low. The lateral pulmonary opacities are similar to previous within variation of acquisition technique. There is no pneumothorax. A tracheostomy tube is stable. Signed: Jakob Garcia MDReport Verified Date/Time: 06/12/2018 04:26:44 Reading Location: [address] Reading Room Electronically signed by: JAKOB GARCIA M.D. on06/12/2018 04:26 [id number] 04:02:00 Test Item Value Reference Range Comments PARTIAL THROMBOPLASTIN TIME (BEAKER) (test 29.1 seconds 22.5-36.0 ckzc=650) PROTHROMBIN [id number] 04:01:00 Test Item Value Reference Range Comments PROTIME (BEAKER) (test lrjj=196) 13.4 seconds 11.7-14.7 INR (BEAKER) (test fxio=886) 1.0 <=5.9 RECOMMENDED COUMADIN/WARFARIN INR THERAPY RANGESSTANDARD DOSE: 2.0 - 3.0 Includes: PROPHYLAXIS forvenous thrombosis, systemic embolization; TREATMENT for venous thrombosis and/or pulmonary embolus.HIGH RISK: Target INR is 2.5-3.5 for patients with mechanical heart valves.POCT-GLUCOSE [id number] 00:10:00 Test Item Value Reference Range Comments POC-GLUCOSE METER (BEAKER) 225 mg/dL 70-110 TESTED AT [facility] [address] [facility] (test rjnq=2134) [facility] [address] POCT-GLUCOSE [id number] 06:14:00 Test Item Value Reference Range Comments POC-GLUCOSE METER (BEAKER) 129 mg/dL 70-110 TESTED AT [facility] [address] [facility] (test xmhg=0820) [facility] [address] TSH/FREE T4 IF [id number] 04:46:00 Test Item Value Reference Range Comments THYROID STIMULATING HORMONE (BEAKER) (test 0.87 uIU/mL 0.35-4.94 gagu=712) CBC W/PLT COUNT & AUTO [id number] 04:30:00 Test Item Value Reference Range Comments WHITE BLOOD CELL COUNT (BEAKER) (test bged=893) 16.2 K/ L 3.5-10.5 RED BLOOD CELL COUNT (BEAKER) (test myws=046) 4.01 M/ L 4.63-6.08 HEMOGLOBIN (BEAKER) (test yydv=689) 12.9 GM/DL 13.7-17.5 HEMATOCRIT (BEAKER) (test fjje=218) 41.0 % 40.1-51.0 MEAN CORPUSCULAR VOLUME (BEAKER) (test lomo=307) 102.2 fL 79.0-92.2 MEAN CORPUSCULAR HEMOGLOBIN (BEAKER) (test 32.2 pg 25.7-32.2 choc=750) MEAN CORPUSCULAR HEMOGLOBIN CONC (BEAKER) (test 31.5 GM/DL 32.3-36.5 szqx=733) RED CELL DISTRIBUTION WIDTH (BEAKER) (test 14.5 % 11.6-14.4 xzhp=555) PLATELET COUNT (BEAKER) (test bsou=332) 176 K/CU MM 150-450 MEAN PLATELET VOLUME (BEAKER) (test kzng=070) 10.9 fL 9.4-12.4 NUCLEATED RED BLOOD CELLS (BEAKER) (test 0 /100 WBC 0-0 bsmh=081) NEUTROPHILS RELATIVE PERCENT (BEAKER) (test 93 % ipca=224) LYMPHOCYTES RELATIVE PERCENT (BEAKER) (test 2 % mypz=163) MONOCYTES RELATIVE PERCENT (BEAKER) (test 4 % avwl=336) EOSINOPHILS RELATIVE PERCENT (BEAKER) (test 0 % pahn=058) BASOPHILS RELATIVE PERCENT (BEAKER) (test 0 % gpzq=112) NEUTROPHILS ABSOLUTE COUNT (BEAKER) (test 15.09 K/ L 1.78-5.38 yxro=585) LYMPHOCYTES ABSOLUTE COUNT (BEAKER) (test 0.28 K/ L 1.32-3.57 gsbv=720) MONOCYTES ABSOLUTE COUNT (BEAKER) (test 0.60 K/ L 0.30-0.82 zsbp=168) EOSINOPHILS ABSOLUTE COUNT (BEAKER) (test 0.00 K/ L 0.04-0.54 iscp=510) BASOPHILS ABSOLUTE COUNT (BEAKER) (test 0.02 K/ L 0.01-0.08 pipg=662) IMMATURE GRANULOCYTES-RELATIVE PERCENT (BEAKER) 1 % 0-1 (test bvbg=9087) [id number] 04:26:00 Test Item Value Reference Range Comments PREALBUMIN (BEAKER) (test wqab=676) 25 mg/dL 14-45 [id number] 04:24:00 Test Item Value Reference Range Comments PHOSPHORUS (BEAKER) (test kxkx=733) 3.5 mg/dL 2.3-4.7 [id number] 04:24:00 Test Item Value Reference Range Comments MAGNESIUM (BEAKER) (test dapm=544) 2.0 mg/dL 1.6-2.6 BASIC METABOLIC [id number] 04:24:00 Test Item Value Reference Range Comments SODIUM (BEAKER) (test 140 meq/L 136-145 jjyq=815) POTASSIUM (BEAKER) (test 3.9 meq/L 3.5-5.1 jkuz=982) CHLORIDE (BEAKER) (test 105 meq/L 98-107 hrkp=613) CO2 (BEAKER) (test 26 meq/L 22-29 sgyv=899) BLOOD UREA NITROGEN 11 mg/dL 7-21 (BEAKER) (test krpo=493) CREATININE (BEAKER) (test 0.67 mg/dL 0.57-1.25 szdh=221) GLUCOSE RANDOM (BEAKER) 129 mg/dL 70-105 (test gior=018) CALCIUM (BEAKER) (test 9.2 mg/dL 8.4-10.2 rtca=015) EGFR (BEAKER) (test 127 mL/min/1.73 sq m ESTIMATED GFR IS NOT cnlc=3741) ACCURATE CREATININE CLEARANCE IN PREDICTING GLOMERULAR FILTRATION RATE. ESTIMATED GFR IS NOT APPLICABLE FOR DIALYSIS PATIENTS. PROTHROMBIN [id number] 04:19:00 Test Item Value Reference Range Comments PROTIME (BEAKER) (test swta=073) 14.5 seconds 11.7-14.7 INR (BEAKER) (test wfal=794) 1.1 <=5.9 RECOMMENDED COUMADIN/WARFARIN INR THERAPY RANGESSTANDARD DOSE: 2.0 - 3.0 Includes: PROPHYLAXIS forvenous thrombosis, systemic embolization; TREATMENT for venous thrombosis and/or pulmonary embolus.HIGH RISK: Target INR is 2.5-3.5 for patients with mechanical heart valves.[id number] 04:19:00 Test Item Value Reference Range Comments PARTIAL THROMBOPLASTIN TIME (BEAKER) (test 29.7 seconds 22.5-36.0 bvlv=439) POCT-GLUCOSE [id number] 01:04:00 Test Item Value Reference Range Comments POC-GLUCOSE METER (BEAKER) 128 mg/dL 70-110 TESTED AT [address] (test kzmu=2933) [facility] [address] POCT-GLUCOSE [id number] 18:19:00 Test Item Value Reference Range Comments POC-GLUCOSE METER (BEAKER) 93 mg/dL 70-110 TESTED AT [address] (test thrw=2699) [facility] [address] POCT-GLUCOSE [id number] 11:44:00 Test Item Value Reference Range Comments POC-GLUCOSE METER (BEAKER) 87 mg/dL 70-110 TESTED AT [address] (test hxny=5409) [facility] [address] POCT-GLUCOSE [id number] 06:13:00 Test Item Value Reference Range Comments POC-GLUCOSE METER (BEAKER) 158 mg/dL 70-110 TESTED AT [address] (test yyrr=1751) [facility] [address] BLOOD GAS, [id number] 04:53:00 Test Item Value Reference Range Comments PH VENOUS (BEAKER) (test nuju=539) 7.48 7.32-7.42 PCO2 VENOUS (BEAKER) (test aawa=742) 37 mmHg 41-51 PO2 VENOUS (BEAKER) (test yniv=500) 94 mmHg 25-40 O2 SATURATION VENOUS (BEAKER) (test lgnx=088) 97.7 % 40.0-70.0 HCO3 VENOUS (BEAKER) (test bxxj=467) 27 mmol/L 21-29 BASE EXCESS VENOUS (BEAKER) (test tqrm=897) 3.7 mmol/L -2.0-3.0 PATIENT TEMPERATURE (BEAKER) (test rjol=5072) 37.0 C RAD, CHEST, 1 VIEW, NON [id number] 04:42:00Reason for exam:->s/p tracheostomyShould this be performed [...] Carrillo Verified Date/Time: 06/10/2018 04:42:37 Reading Location: [address] Reading Room [id number] 04:29:00 Test Item Value Reference Range Comments MAGNESIUM (BEAKER) (test 2.2 mg/dL 1.6-2.6 Specimen slightly hemolyzed gxkz=925) [id number] 04:29:00 Test Item Value Reference Range Comments PHOSPHORUS (BEAKER) (test 3.7 mg/dL 2.3-4.7 Specimen slightly hemolyzed tfkz=652) BASIC METABOLIC [id number] 04:29:00 Test Item Value Reference Range Comments SODIUM (BEAKER) (test 139 meq/L 136-145 ugyn=753) POTASSIUM (BEAKER) (test 4.0 meq/L 3.5-5.1 Specimen slightly lcyd=519) hemolyzed CHLORIDE (BEAKER) (test 105 meq/L 98-107 kass=140) CO2 (BEAKER) (test 24 meq/L 22-29 jcnd=897) BLOOD UREA NITROGEN 11 mg/dL 7-21 (BEAKER) (test gwhe=879) CREATININE (BEAKER) (test 0.70 mg/dL 0.57-1.25 Specimen slightly wyhn=186) hemolyzed GLUCOSE RANDOM (BEAKER) 159 mg/dL 70-105 (test gyjk=515) CALCIUM (BEAKER) (test 9.4 mg/dL 8.4-10.2 pwdj=697) EGFR (BEAKER) (test 121 mL/min/1.73 sq m ESTIMATED GFR IS NOT mgqu=8205) ACCURATE CREATININE CLEARANCE IN PREDICTING GLOMERULAR FILTRATION RATE. ESTIMATED GFR IS NOT APPLICABLE FOR DIALYSIS PATIENTS. [id number] 04:18:00 Test Item Value Reference Range Comments PARTIAL THROMBOPLASTIN TIME (BEAKER) (test 24.5 seconds 22.5-36.0 thtp=511) PROTHROMBIN [id number] 04:17:00 Test Item Value Reference Range Comments PROTIME (BEAKER) (test kfsf=551) 13.7 seconds 11.7-14.7 INR (BEAKER) (test eajj=433) 1.0 <=5.9 RECOMMENDED COUMADIN/WARFARIN INR THERAPY RANGESSTANDARD DOSE: 2.0 - 3.0 Includes: PROPHYLAXIS forvenous thrombosis, systemic embolization; TREATMENT for venous thrombosis and/or pulmonary embolus.HIGH RISK: Target INR is 2.5-3.5 for patients with mechanical heart valves.CBC W/PLT COUNT & AUTO [id number] 04:06:00 Test Item Value Reference Range Comments WHITE BLOOD CELL COUNT (BEAKER) (test mbmf=573) 17.9 K/ L 3.5-10.5 RED BLOOD CELL COUNT (BEAKER) (test ddpo=838) 4.34 M/ L 4.63-6.08 HEMOGLOBIN (BEAKER) (test fpfz=670) 13.7 GM/DL 13.7-17.5 HEMATOCRIT (BEAKER) (test vmoj=788) 42.8 % 40.1-51.0 MEAN CORPUSCULAR VOLUME (BEAKER) (test xkmz=716) 98.6 fL 79.0-92.2 MEAN CORPUSCULAR HEMOGLOBIN (BEAKER) (test 31.6 pg 25.7-32.2 efri=967) MEAN CORPUSCULAR HEMOGLOBIN CONC (BEAKER) (test 32.0 GM/DL 32.3-36.5 kusu=414) RED CELL DISTRIBUTION WIDTH (BEAKER) (test 14.4 % 11.6-14.4 ykvl=607) PLATELET COUNT (BEAKER) (test gryo=924) 194 K/CU MM 150-450 MEAN PLATELET VOLUME (BEAKER) (test uucv=945) 10.5 fL 9.4-12.4 NUCLEATED RED BLOOD CELLS (BEAKER) (test 0 /100 WBC 0-0 hpdk=313) NEUTROPHILS RELATIVE PERCENT (BEAKER) (test 92 % fvaq=861) LYMPHOCYTES RELATIVE PERCENT (BEAKER) (test 2 % hwyb=209) MONOCYTES RELATIVE PERCENT (BEAKER) (test 5 % pujn=672) EOSINOPHILS RELATIVE PERCENT (BEAKER) (test 0 % ffsb=150) BASOPHILS RELATIVE PERCENT (BEAKER) (test 0 % mbhp=428) NEUTROPHILS ABSOLUTE COUNT (BEAKER) (test 16.35 K/ L 1.78-5.38 sjck=519) LYMPHOCYTES ABSOLUTE COUNT (BEAKER) (test 0.40 K/ L 1.32-3.57 ovnx=895) MONOCYTES ABSOLUTE COUNT (BEAKER) (test 0.86 K/ L 0.30-0.82 mkwu=993) EOSINOPHILS ABSOLUTE COUNT (BEAKER) (test 0.00 K/ L 0.04-0.54 jihw=938) BASOPHILS ABSOLUTE COUNT (BEAKER) (test 0.03 K/ L 0.01-0.08 dyhx=244) IMMATURE GRANULOCYTES-RELATIVE PERCENT (BEAKER) 1 % 0-1 (test wwco=7805) POCT-GLUCOSE [id number] 01:05:00 Test Item Value Reference Range Comments POC-GLUCOSE METER (BEAKER) 161 mg/dL 70-110 TESTED AT [address] (test zjho=9881) [facility] [address] RAD, CHEST, 1 VIEW, NON [id number] 22:19:00Reason for exam:->Laryngeal massShould this be performed [...] MDReport Verified Date/Time: 06/09/2018 22:19:49 Reading Location: [address] Consult Reading Room 10: 19 PMRAD, CHEST, 1 VIEW, NON [id number] 20:37:00Reason for exam:-> Laryngeal massShould this be [...] MDReport Verified Date/Time: 01/2019 20:37:30 Reading Location: [address] Reading Room RAD, CHEST, 1 VIEW, NON [id number] 20:18:00Reason for exam:->Post-opShould this be performed at [...] MDReport Verified Date/Time: 06/09/2018 20:18:45 Reading Location: [address] Reading Room CBC W/PLT COUNT & AUTO [id number] 19:32:00 Test Item Value Reference Range Comments WHITE BLOOD CELL COUNT (BEAKER) (test ymbg=045) 22.9 K/ L 3.5-10.5 RED BLOOD CELL COUNT (BEAKER) (test pdey=508) 4.82 M/ L 4.63-6.08 HEMOGLOBIN (BEAKER) (test zzmh=358) 15.5 GM/DL 13.7-17.5 HEMATOCRIT (BEAKER) (test rmtf=346) 48.5 % 40.1-51.0 MEAN CORPUSCULAR VOLUME (BEAKER) (test oang=247) 100.6 fL 79.0-92.2 MEAN CORPUSCULAR HEMOGLOBIN (BEAKER) (test 32.2 pg 25.7-32.2 dztw=224) MEAN CORPUSCULAR HEMOGLOBIN CONC (BEAKER) (test 32.0 GM/DL 32.3-36.5 hmzn=646) RED CELL DISTRIBUTION WIDTH (BEAKER) (test 14.5 % 11.6-14.4 rczt=909) PLATELET COUNT (BEAKER) (test atux=202) 201 K/CU MM 150-450 MEAN PLATELET VOLUME (BEAKER) (test tzpp=966) 10.1 fL 9.4-12.4 NUCLEATED RED BLOOD CELLS (BEAKER) (test 0 /100 WBC 0-0 wrym=904) (CELLAVISION MANUAL DIFF)2018-06-09 19:32:00 Test Item Value Reference Range Comments NEUTROPHILS - REL (CELLAVISION)(BEAKER) (test 94 % qigm=7732) MONOCYTES - REL (CELLAVISION)(BEAKER) (test 4 % hfzv=2457) BANDS - REL (CELLAVISION)(BEAKER) (test 1 % 0-10 wyxq=2060) NEUTROPHILS - ABS (CELLAVISION)(BEAKER) (test 21.53 K/ul 1.78-5.38 ueti=0760) MONOCYTES - ABS (CELLAVISION)(BEAKER) (test 0.92 K/uL 0.30-0.82 ygpz=3918) BANDS - ABS (CELLAVISION)(BEAKER) (test 0.23 K/uL 0.00-0.80 xolt=3078) TOTAL COUNTED (BEAKER) (test uxpg=6865) 100 RBC MORPHOLOGY (BEAKER) (test ucls=271) Normal PLT MORPHOLOGY (BEAKER) (test qmmz=488) Normal HYPERSEGMENTATION (CELLAVISION)(BEAKER) (test Present nhtg=0898) ARTIFACT (CELLAVISION)(BEAKER) (test jvtt=1572) Present PLATELET CONCENTRATION (CELLAVISION)(BEAKER) Adequate (test uxfk=3829) Received comment: User comments: Slide comments:[id number] 19:25:00 Test Item Value Reference Range Comments PHOSPHORUS (BEAKER) (test lwrq=484) 4.7 mg/dL 2.3-4.7 [id number] 19:25:00 Test Item Value Reference Range Comments MAGNESIUM (BEAKER) (test uddo=166) 2.2 mg/dL 1.6-2.6 BASIC METABOLIC [id number] 19:25:00 Test Item Value Reference Range Comments SODIUM (BEAKER) (test 139 meq/L 136-145 exyr=262) POTASSIUM (BEAKER) (test 3.9 meq/L 3.5-5.1 uqxw=394) CHLORIDE (BEAKER) (test 103 meq/L 98-107 pgat=615) CO2 (BEAKER) (test 27 meq/L 22-29 jith=462) BLOOD UREA NITROGEN 15 mg/dL 7-21 (BEAKER) (test bqsm=782) CREATININE (BEAKER) (test 0.81 mg/dL 0.57-1.25 taxp=879) GLUCOSE RANDOM (BEAKER) 139 mg/dL 70-105 (test luzc=433) CALCIUM (BEAKER) (test 9.3 mg/dL 8.4-10.2 ywmk=743) EGFR (BEAKER) (test 102 mL/min/1.73 sq m ESTIMATED GFR IS NOT eqsg=7223) ACCURATE CREATININE CLEARANCE IN PREDICTING GLOMERULAR FILTRATION RATE. ESTIMATED GFR IS NOT APPLICABLE FOR DIALYSIS PATIENTS. PROTHROMBIN TIME/[id number] 19:18:00 Test Item Value Reference Range Comments PROTIME (BEAKER) (test tieu=719) 13.0 seconds 11.7-14.7 INR (BEAKER) (test uczz=979) 1.0 <=5.9 RECOMMENDED COUMADIN/WARFARIN INR THERAPY RANGESSTANDARD DOSE: 2.0 - 3.0 Includes: PROPHYLAXIS forvenous thrombosis, systemic embolization; TREATMENT for venous thrombosis and/or pulmonary embolus.HIGH RISK: Target INR is 2.5-3.5 for patients with mechanical heart valves.[id number] 19:18:00 Test Item Value Reference Range Comments PARTIAL THROMBOPLASTIN TIME (BEAKER) (test 24.0 seconds 22.5-36.0 oqyr=797) [id number] 12:47:00 Test Item Value Reference Range Comments HEMOGLOBIN (BEAKER) (test lhtt=396) 15.7 GM/DL 13.7-17.5 PLATELET [id number] 12:47:00 Test Item Value Reference Range Comments PLATELET COUNT (BEAKER) (test anqq=441) 203 K/CU MM 150-450
[2019-02-09] MEDS: HYDROCODONE/APAP 5/325 MG TAB PO PRN ×2 (07:21→12:49)
[2019-02-09 07:29] LABS: Anisocytosis 1+; Blood Morphology Comment NOTED (NOT SEEN); Platelet Estimate ADEQ; Urine White Blood Cell Casts OK
[2019-02-09 07:30] LABS: Macrocytosis SLIGHT
[2019-02-09] MEDS ORDERED: IPRATROPIUM BROM 0.5MG/2.5ML NEB PRN (08:27)
[2019-02-09] MEDS ORDERED: ALBUTEROL 2.5 MG/3 ML NEB SOL NEB PRN (08:27)
[2019-02-09] MEDS ORDERED: ESCITALOPRAM 20 MG TAB PO SCH (09:00)
[2019-02-09] MEDS: DOXYCYCLINE 100 MG in NA CHLORIDE 0.9% 100 ML IVPB SCH (09:31)
[2019-02-09 10:08] VITALS: O2SAT 96
[2019-02-09] MEDS: GUAIFENESIN 600 MG SA TAB PO PRN (10:44)
[2019-02-09 10:55] VITALS: TEMP 97.2
--- NOTE | 2019-02-09 13:38 | P.DS ---
Admission Date: 02/08/19 Discharge Date: 02/09/19 Primary Care Provider: unknown; Tim Pardo Disposition: ROUTINE DISCHARGE Discharge Condition: GOOD Reason for Admission: Pains swelling and fever of the neck Consultations: ENTEileen Pardo Procedures: CT chest: FINDINGS: The lungs appear clear. No mediastinal or hilar lymphadenopathy is seen. A pleural effusion is not present. A pericardial effusion is not seen. Fatty liver. 5.6 centimeter lipoma right infraspinatus muscle IMPRESSION: No acute abnormality is displayed CT neck: FINDINGS: Laryngectomy has been performed. Remainder of the airway is unremarkable. The parotid, submandibular and thyroid glands appear unremarkable. Ill-defined stranding is present within the fat adjacent to the right and left submandibular glands. It is moderate on the right mild on the left. An abscess is not seen. The parapharyngeal fat is clear. IMPRESSION: Moderate inflammatory changes within the fat adjacent to the right submandibular gland with mild changes on the left having the appearance of a cellulitis. A fluid-filled abscess is not seen. Medical Problem List: Fever, pain to the neck secondary to cellulitis to the area of the right submandibular gland complicated with history of throat cancer/laryngectomy/chemo /radiation Surgical Hypothyroidism Depression Former tobacco abuse Fatty liver Polycythemia Elevated BP without HTN Brief History of Present Illness: 48-year-old male presented to the emergency room with fever, pain and swelling to the neck. Patient with history of throat cancer status post laryngectomy. Patient with prior infection in the past. Patient was admitted for further evaluation and treatment. Hospital Course: Patient presented with fever, pain to the neck. CT scan of neck showed moderate inflammation within the fat adjacent to the right submandibular gland with mild changes on the left, suspect cellulitis. No fluid filled abscess seen. Patient with history of throat cancer, laryngectomy, chemotherapy/ radiation. Patient was admitted for further evaluation and treatment. Patient received IV antibiotic therapy. Pro calcitonin and lactic acid negative. Case discussed with ENT who has seen the patient in the past. Blood cultures obtained and are negative. Previous information reviewed. At discharge patient without significant pain inflammation improved. At discharge patient will continue with Bactrim DS 1 pill twice daily and doxycycline 100 mg 1 pill twice daily for 10 days. Patient will follow up with ENT in 1-2 weeks to monitor his progress. ENT mentioned patient requires further evaluation with specialty care for future trachea/esophageal prosthesis. ENT will arrange with specialty care. Patient with history of surgical hypothyroidism. At discharge he will continue with his current regimen levothyroxine 137 mcg daily. Patient with depression. At discharge he will continue with his current medication-Lexapro 20 mg daily. Patient with history of tobacco abuse. Tobacco cessation education will be provided. Patient will be provided nicotine patch to help position entirely. CT scan revealed fatty liver. Education will be provided. Patient may follow up with GI to further evaluate and address. Patient also found to have elevated white count. This is likely related to his tobacco abuse. Recommendation is to recheck lab-CBC in 2-4 weeks. If still elevated patient may require hematologic evaluation. Patient had slight elevation of BP. No history of HTN. Recommend to monitor the BP daily. If blood pressure remains above 140/90, then he is to follow up with his PCP for consideration of blood pressure medication. Patient will be given education on hypertension. Vital Signs/Physical Exam: Temp Pulse Resp BP Pulse Ox 97.2 F 53 18 144/75 H 97 02/09/19 08:00 02/09/19 08:00 02/09/19 08:00 02/09/19 08:00 02/09/19 08:00 General: Alert, In no apparent distress, Oriented x3, Cooperative HEENT: Atraumatic, Other (Mild pain to the neck region. Postsurgical changes noted.) Neck: Supple, Other (Postsurgical changes noted) Respiratory: Clear to auscultation bilaterally, Normal air movement Cardiovascular: Normal pulses, Regular rate/rhythm Gastrointestinal: Normal bowel sounds Neurological: Normal strength at 5/5 x4 extr, Normal tone, Normal affect Laboratory Data at Discharge: WBC 11.1 K/uL (4.3-10.9) H D 02/09/19 05:29 Hgb 16.8 g/dL (13.6-17.9) 02/09/19 05:29 Hct 49.5 % (39.6-49.0) H 02/09/19 05:29 Plt Count 187 K/uL (152-406) 02/09/19 05:29 PT 11.8 SECONDS (9.5-12.5) 02/08/19 12:01 INR 1.00 02/08/19 12:01 APTT 32.1 SECONDS (24.3-36.9) 02/08/19 12:01 Sodium 142 mmol/L (136-145) 02/09/19 05:29 Potassium 4.1 mmol/L (3.5-5.1) 02/09/19 05:29 BUN 4 mg/dL (7-18) L 02/09/19 05:29 Creatinine 0.70 mg/dL (0.55-1.3) 02/09/19 05:29 Glucose 143 mg/dL (74-106) H 02/09/19 05:29 Total Bilirubin 0.5 mg/dL (0.2-1.0) 02/09/19 05:29 AST 11 U/L (15-37) L 02/09/19 05:29 ALT 28 U/L (12-78) 02/09/19 05:29 Alkaline Phosphatase 93 U/L (45-117) 02/09/19 05:29 Home Medications: Escitalopram [Lexapro*] 20 mg PO DAILY 05/27/18 Levothyroxine Sodium [Levoxyl] 137 mcg PO DAILY 06/26/18 Guaifenesin [Mucinex] 100 mg PO BID 02/08/19 Hydrocodone Bit/Acetaminophen [Hydrocodon-Acetaminophn 10-325] 1 each PO TID 01/17 Doxycycline Hyclate 100 mg PO BID #20 tablet 02/09/19 Nicotine [Nicoderm*] 21 mg TD DAILY #30 patch.td24 02/09/19 Sulfamethoxazole/Trimethoprim [Bactrim Ds Tablet] 1 each PO BID #20 tablet 02/09 New Medications: RX: Doxycycline Hyclate 100 mg PO BID #20 tablet RX: Nicotine [Nicoderm*] 21 mg TD DAILY #30 patch.td24 Sulfamethoxazole/Trimethoprim [Bactrim Ds Tablet] 1 each PO BID #20 tablet Patient Discharge Instructions: 1. Follow up with PCP in 1-2 weeks to further address. 2. Patient presented with fever, pain to the neck. CT scan of neck showed moderate inflammation within the fat adjacent to the right submandibular gland with mild changes on the left, suspect cellulitis. No fluid filled abscess seen. Patient with history of throat cancer, laryngectomy, chemotherapy /radiation. Patient was admitted for further evaluation and treatment. Patient received IV antibiotic therapy. Pro calcitonin and lactic acid negative. Case discussed with ENT who has seen the patient in the past. Blood cultures obtained and are negative. Previous information reviewed. At discharge patient without significant pain inflammation improved. At discharge patient will continue with Bactrim DS 1 pill twice daily and doxycycline 100 mg 1 pill twice daily for 10 days. Patient will follow up with ENT in 1-2 weeks to monitor his progress. ENT mentioned patient requires further evaluation with specialty care for future trachea/esophageal prosthesis. ENT will arrange for specialty care as an outpatient. Patient will also be given a 36 Polish nasal trumpet to use and help with his breathing. 3. Patient with history of surgical hypothyroidism. At discharge he will continue with his current regimen levothyroxine 137 mcg daily. 4. Patient with depression. At discharge he will continue with his current medication-Lexapro 20 mg daily. 5. Patient with history of tobacco abuse. Tobacco cessation education will be provided. Patient will be provided nicotine patch to help position entirely. 6. CT scan revealed fatty liver. Education will be provided. Patient may follow up with GI to further evaluate and address. 7. Patient also found to have elevated white count. This is likely related to his tobacco abuse. Recommendation is to recheck lab-CBC in 2-4 weeks. If still elevated patient may require hematologic evaluation. 8. Patient had slight elevation of BP. No history of HTN. Recommend to monitor the BP daily. If blood pressure remains above 140/90, then he is to follow up with his PCP for consideration of blood pressure medication. Patient will be given education on hypertension. Diet: AHA Activity: Ad get Time spent managing pt's care (in minutes): 55
[2019-02-09 14:48] VITALS: BP 156/73
--- NOTE | 2019-02-10 06:13 | P.CNS ---
Date of Consult: 02/09/19 Patient well known to me from outpt clinic. Hx TL/Pec flap with Dr Cameron at [facility] in Spring 2018 with complication of wound infection and was put on Vanco for 6 weeks in July 2018 via PICC. Last seen in my clinic in August 2018. Admitted with SOB and neck redness/swelling but CT negative for abscess. Patient is currently followed with Dr Jose who saw him recently but I do not have access to those records. Currently smoking but had nicotine patch while hospitalized and girlfriend notes his breathing and respiratory secretions are better even after only 1-2 days of not smoking. Patient is more motivated for tobacco cessation at this time than in the past. NAD. Neck with minimal tenderness, healthy appearing, well healed skin paddle to the R neck. Stoma without crusting or drainage. Upper portion of trachea appears reasonably healthy. Improving with current Abx et al. Patient motivated for d/c home with PO Abx. He needs to establish care with a H&N subspecialist jarad in regards to interested in having a TEP placed and needs regular FU with specialist PSYCHOLOGY INTERN for those services. He's not been happy with the [facility] system, jarad due to the driving/parking issues as well as interpersonal interaction and frustrations in contacting his doctor with questions and problems. I recommend he establish care with the new H&N specialist at [facility] and will assist with that on an outpatient basis. For now, I recommend trimming a 36Fr nasal trumpet to the appropriate length for a substitute xin tube. I spoke with admitting hospitalized via telephone regarding my findings and recommendations.
[2019-02-10] MEDS ORDERED: NICOTINE 21 MG/PAT TD SCH (09:00)
== END 2019-02-09 15:45 | disposition home or self-care (01) ==
LOC: ER 09:07 → SUPCPDRO 09:07 → ERHOLD 13:07 → 2ND 14:01
PROVIDERS: ADMIT Internal Medicine Sleep Medicine; ATTEND Internal Medicine Sleep Medicine
DX: K11.3 Abscess of salivary gland (principal); E89.0 Postprocedural hypothyroidism; F32.9 Major depressive disorder, single episode, unspecified; K76.0 Fatty (change of) liver, not elsewhere classified; D75.1 Secondary polycythemia; R03.0 Elevated blood-pressure reading, without diagnosis of hypertension; Z85.21 Personal history of malignant neoplasm of larynx; Z88.0 Allergy status to penicillin; Z87.891 Personal history of nicotine dependence
CPT/HCPCS: 36415; 70491; 71045; 71260; 80048; 80053; 80076; 83605; 84145; 85025; 85610; 85730; 87040; 94640; 94760; 96361; 96365; 96375; 99285; G0378; J1200; J2270; J2405; J2930; J3370; J7030; Q9967

== ENCOUNTER 2019-02-10 16:47 | Inpatient (IN) | payer MEDICAID ==
--- OUTSIDE RECORDS SUMMARY | 2019-02-10 16:49 | XMS REPORT ---
[...] Dosage System Date Date BuPROPion HCl [facility] 62869534458 150 MG Orally Dec 16, Active 1 tablet ER (Smoking Once a day 2018 in the Det) morning Xanax [facility] 54384015422 1 MG Orally Active 1 tablet Once a day Zofran ND 98165277858 8 MG Orally Active 1 tablet Twice a day PRN Hydrocodone-Ari ND 29738970335 10-325 MG Active 1 tablet taminophen Orally every 6 as needed hrs Citalopram ND 73666436568 20 MG Orally Inactive 1 tablet Hydrobromide Once a day Results No Known Results Summary Purpose eClinicalWorks Submission
--- OUTSIDE RECORDS SUMMARY | 2019-02-10 16:49 | XMS REPORT ---
[...] End Status Dosage System Date Date Hydrocodone-Acet [facility] 94490990299 10-325 MG Active 1 tablet aminophen Orally every 6 as needed hrs Citalopram [facility] 67320038976 20 MG Orally Active 1 tablet Hydrobromide Once a day Xanax [facility] [address]-74 1 MG Orally Active 1 tablet Once a day Zofran [facility] [address]-71 8 MG Orally Active 1 tablet Twice a day PRN Results No Known Results Summary Purpose eClinicalWorks Submission
--- OUTSIDE RECORDS SUMMARY | 2019-02-10 16:49 | XMS REPORT ---
[...] Dosage System Date Date BuPROPion HCl [facility] 70833516884 150 MG Orally Dec 16, Active 1 tablet ER (Smoking Once a day 2018 in the Det) morning Xanax [facility] 29688440554 1 MG Orally Once Active 1 tablet a day Zofran ND 07845634744 8 MG Orally Active 1 tablet Twice a day PRN Hydrocodone-Ac ND 91712871034 10-325 MG Orally Active 1 tablet etaminophen every 6 hrs as needed Results No Known Results Summary Purpose eClinicalWorks Submission
--- OUTSIDE RECORDS SUMMARY | 2019-02-10 16:53 | XMS REPORT ---
:1970 Author Organization [facility] Address [facility] [address] [place] [id number] Care Team Providers Name Role Phone JENNIFER [...] Comments CREATININE (BEAKER) (test 0.63 mg/dL 0.57-1.25 idik=397) EGFR (BEAKER) (test 136 mL/min/1.73 sq m ESTIMATED GFR IS NOT seoh=5093) ACCURATE CREATININE CLEARANCE IN PREDICTING GLOMERULAR FILTRATION RATE. ESTIMATED GFR IS NOT APPLICABLE FOR DIALYSIS PATIENTS. WOUND CULTURE + GRAM [id number] 16:32:00 Test Item Value Reference Range Comments CULTURE (BEAKER) (test No growth agwp=9466) GRAM STAIN RESULT (BEAKER) 2+ WBCs (test ggsu=3597) GRAM STAIN RESULT (BEAKER) 1+ gram positive cocci in (test efec=19439) pairs GRAM STAIN RESULT (BEAKER) <1+ gram variable rods (test upyj=89805) VANCOMYCIN LEVEL, [id number] 23:37:00 Test Item Value Reference Range Comments VANCOMYCIN TROUGH (BEAKER) (test cxli=670) 7.5 ug/mL 10.0-20.0 FL, ESOPH, SWALLOW FUNCTION, WITH CINE OR [id number] 18:19:00Cervical esophagram with GASTROGAFFINReason for exam:->status post [...] MDReport Verified Date/Time: 08/12/2018 18:19:29 Reading Location: [place] [id number] Ortho Consult Reading Room CBC W/PLT COUNT & AUTO [id number] 04: 39:00 Test Item Value Reference Range Comments WHITE BLOOD CELL COUNT (BEAKER) (test fcou=427) 7.1 K/ L 3.5-10.5 RED BLOOD CELL COUNT (BEAKER) (test hkfh=910) 3.77 M/ L 4.63-6.08 HEMOGLOBIN (BEAKER) (test aeun=716) 10.9 GM/DL 13.7-17.5 HEMATOCRIT (BEAKER) (test vpde=899) 35.7 % 40.1-51.0 MEAN CORPUSCULAR VOLUME (BEAKER) (test tfvn=727) 94.7 fL 79.0-92.2 MEAN CORPUSCULAR HEMOGLOBIN (BEAKER) (test 28.9 pg 25.7-32.2 ddtf=231) MEAN CORPUSCULAR HEMOGLOBIN CONC (BEAKER) (test 30.5 GM/DL 32.3-36.5 jpea=879) RED CELL DISTRIBUTION WIDTH (BEAKER) (test 14.6 % 11.6-14.4 psyp=559) PLATELET COUNT (BEAKER) (test fpkc=491) 318 K/CU MM 150-450 MEAN PLATELET VOLUME (BEAKER) (test lner=636) 9.8 fL 9.4-12.4 NUCLEATED RED BLOOD CELLS (BEAKER) (test 0 /100 WBC 0-0 itrs=414) NEUTROPHILS RELATIVE PERCENT (BEAKER) (test 72 % znix=749) LYMPHOCYTES RELATIVE PERCENT (BEAKER) (test 10 % dcon=399) MONOCYTES RELATIVE PERCENT (BEAKER) (test 12 % yprl=078) EOSINOPHILS RELATIVE PERCENT (BEAKER) (test 4 % etoi=914) BASOPHILS RELATIVE PERCENT (BEAKER) (test 1 % rraz=103) NEUTROPHILS ABSOLUTE COUNT (BEAKER) (test 5.08 K/ L 1.78-5.38 arjo=034) LYMPHOCYTES ABSOLUTE COUNT (BEAKER) (test 0.68 K/ L 1.32-3.57 hxzk=017) MONOCYTES ABSOLUTE COUNT (BEAKER) (test 0.86 K/ L 0.30-0.82 zzln=466) EOSINOPHILS ABSOLUTE COUNT (BEAKER) (test 0.29 K/ L 0.04-0.54 serh=254) BASOPHILS ABSOLUTE COUNT (BEAKER) (test 0.04 K/ L 0.01-0.08 wbva=102) IMMATURE GRANULOCYTES-RELATIVE PERCENT (BEAKER) 1 % 0-1 (test mpvz=0303) TSH/FREE T4 IF [id number] 18:11:00 Test Item Value Reference Range Comments THYROID STIMULATING HORMONE (BEAKER) (test 0.75 uIU/mL 0.35-4.94 cvot=381) CBC W/PLT COUNT & AUTO [id number] 17:31:00 Test Item Value Reference Range Comments WHITE BLOOD CELL COUNT (BEAKER) (test ywct=579) 9.2 K/ L 3.5-10.5 RED BLOOD CELL COUNT (BEAKER) (test xhke=084) 3.78 M/ L 4.63-6.08 HEMOGLOBIN (BEAKER) (test ftfi=442) 11.0 GM/DL 13.7-17.5 HEMATOCRIT (BEAKER) (test ptrf=756) 35.4 % 40.1-51.0 MEAN CORPUSCULAR VOLUME (BEAKER) (test stps=643) 93.7 fL 79.0-92.2 MEAN CORPUSCULAR HEMOGLOBIN (BEAKER) (test 29.1 pg 25.7-32.2 sijs=772) MEAN CORPUSCULAR HEMOGLOBIN CONC (BEAKER) (test 31.1 GM/DL 32.3-36.5 xxti=569) RED CELL DISTRIBUTION WIDTH (BEAKER) (test 14.7 % 11.6-14.4 yqgn=837) PLATELET COUNT (BEAKER) (test onrt=231) 323 K/CU MM 150-450 MEAN PLATELET VOLUME (BEAKER) (test kius=995) 9.6 fL 9.4-12.4 NUCLEATED RED BLOOD CELLS (BEAKER) (test 0 /100 WBC 0-0 atly=929) NEUTROPHILS RELATIVE PERCENT (BEAKER) (test 75 % sddh=050) LYMPHOCYTES RELATIVE PERCENT (BEAKER) (test 9 % awzz=578) MONOCYTES RELATIVE PERCENT (BEAKER) (test 12 % hlzk=377) EOSINOPHILS RELATIVE PERCENT (BEAKER) (test 3 % iefw=878) BASOPHILS RELATIVE PERCENT (BEAKER) (test 0 % esja=012) NEUTROPHILS ABSOLUTE COUNT (BEAKER) (test 6.86 K/ L 1.78-5.38 mpyr=021) LYMPHOCYTES ABSOLUTE COUNT (BEAKER) (test 0.81 K/ L 1.32-3.57 thgz=875) MONOCYTES ABSOLUTE COUNT (BEAKER) (test 1.13 K/ L 0.30-0.82 gvcu=418) EOSINOPHILS ABSOLUTE COUNT (BEAKER) (test 0.24 K/ L 0.04-0.54 edvq=046) BASOPHILS ABSOLUTE COUNT (BEAKER) (test 0.04 K/ L 0.01-0.08 jfmi=928) IMMATURE GRANULOCYTES-RELATIVE PERCENT (BEAKER) 1 % 0-1 (test cthj=1437) TISSUE [id number] 10:26:00Surgical Pathology Report Case: [id number] Authorizing Provider: Jennifer Fraire MD Collected: 07/14/2018 1023 Ordering Location: [facility] PERI[facility] Received: 07/14/2018 1029 SERVICES Pathologist: [...] NODES (0/2) Signing Pathologist Direct Phone Line: [phone] There is a detached piece of necrotic [...] cannot be determined from the submitted specimen(s) 03093 X3 , 77593, 13036, 36136 X2, 86136 X 4, 60850 x1, 18743 [id number] 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 Spark Tester sections are submitted as follows: C6 - [...] shows ulcer and granulation tissue. On C19, [place]-8 positivity confirms portion of thyroidtissue present. On [...] stains. Immunohistochemistry technical testing was performed at [facility], Pathology Laboratory where it was [...] clinical laboratory testing.CBC W/PLT COUNT & AUTO [id number] 09:34:00 Test Item Value Reference Range Comments WHITE BLOOD CELL COUNT (BEAKER) (test ovxz=828) 10.8 K/ L 3.5-10.5 RED BLOOD CELL COUNT (BEAKER) (test fpag=930) 3.45 M/ L 4.63-6.08 HEMOGLOBIN (BEAKER) (test ycde=311) 10.2 GM/DL 13.7-17.5 HEMATOCRIT (BEAKER) (test ksny=986) 34.1 % 40.1-51.0 MEAN CORPUSCULAR VOLUME (BEAKER) (test gfii=660) 98.8 fL 79.0-92.2 MEAN CORPUSCULAR HEMOGLOBIN (BEAKER) (test 29.6 pg 25.7-32.2 vbjz=592) MEAN CORPUSCULAR HEMOGLOBIN CONC (BEAKER) (test 29.9 GM/DL 32.3-36.5 zpkg=104) RED CELL DISTRIBUTION WIDTH (BEAKER) (test 15.7 % 11.6-14.4 vahx=138) PLATELET COUNT (BEAKER) (test cixy=923) 522 K/CU MM 150-450 MEAN PLATELET VOLUME (BEAKER) (test gkmu=497) 10.2 fL 9.4-12.4 NUCLEATED RED BLOOD CELLS (BEAKER) (test 0 /100 WBC 0-0 hliz=261) (CELLAVISION MANUAL DIFF)2018-07-24 09:34:00 Test Item Value Reference Range Comments NEUTROPHILS - REL (CELLAVISION)(BEAKER) (test 80 % wawl=1234) LYMPHOCYTES - REL (CELLAVISION)(BEAKER) (test 2 % busy=7798) MONOCYTES - REL (CELLAVISION)(BEAKER) (test 15 % oeiw=3055) EOSINOPHILS - REL (CELLAVISION)(BEAKER) (test 3 % sgze=5945) NEUTROPHILS - ABS (CELLAVISION)(BEAKER) (test 8.64 K/ul 1.78-5.38 ftlx=0267) LYMPHOCYTES - ABS (CELLAVISION)(BEAKER) (test 0.22 K/ul 1.32-3.57 smsz=1774) MONOCYTES - ABS (CELLAVISION)(BEAKER) (test 1.62 K/uL 0.30-0.82 gpsi=4900) EOSINOPHILS - ABS (CELLAVISION)(BEAKER) (test 0.32 K/uL 0.04-0.54 ikml=2533) TOTAL COUNTED (BEAKER) (test gubo=3388) 100 WBC MORPHOLOGY (BEAKER) (test vcpx=736) Normal LARGE PLT(BEAKER) (test pxpm=5648) Present POLYCHROMATOPHILLIC RBCS(BEAKER) (test uiyx=721) 1+ few ARTIFACT (CELLAVISION)(BEAKER) (test qqip=9735) Present PLATELET CONCENTRATION (CELLAVISION)(BEAKER) (test Increased fmle=1404) Received comment: User comments: Slide comments:[id number] 05:40:00 Test Item Value Reference Range Comments PHOSPHORUS (BEAKER) (test lvtp=721) 4.8 mg/dL 2.3-4.7 [id number] 05:40:00 Test Item Value Reference Range Comments MAGNESIUM (BEAKER) (test kpsq=459) 2.1 mg/dL 1.6-2.6 BASIC METABOLIC [id number] 05:40:00 Test Item Value Reference Range Comments SODIUM (BEAKER) (test 140 meq/L 136-145 sslr=635) POTASSIUM (BEAKER) (test 4.0 meq/L 3.5-5.1 quno=069) CHLORIDE (BEAKER) (test 99 meq/L 98-107 zpdh=789) CO2 (BEAKER) (test 30 meq/L 22-29 fbct=377) BLOOD UREA NITROGEN 8 mg/dL 7-21 (BEAKER) (test bxmu=117) CREATININE (BEAKER) (test 0.71 mg/dL 0.57-1.25 suix=036) GLUCOSE RANDOM (BEAKER) 90 mg/dL 70-105 (test mmme=376) CALCIUM (BEAKER) (test 8.8 mg/dL 8.4-10.2 saso=765) EGFR (BEAKER) (test 118 mL/min/1.73 sq m ESTIMATED GFR IS NOT qxbj=9186) ACCURATE CREATININE CLEARANCE IN PREDICTING GLOMERULAR FILTRATION RATE. ESTIMATED GFR IS NOT APPLICABLE FOR DIALYSIS PATIENTS. CBC W/PLT COUNT & AUTO [id number] 11:50:00 Test Item Value Reference Range Comments WHITE BLOOD CELL COUNT (BEAKER) (test zwlz=670) 13.2 K/ L 3.5-10.5 RED BLOOD CELL COUNT (BEAKER) (test lbbi=130) 3.41 M/ L 4.63-6.08 HEMOGLOBIN (BEAKER) (test sdyc=715) 10.2 GM/DL 13.7-17.5 HEMATOCRIT (BEAKER) (test riow=541) 33.2 % 40.1-51.0 MEAN CORPUSCULAR VOLUME (BEAKER) (test gjur=123) 97.4 fL 79.0-92.2 MEAN CORPUSCULAR HEMOGLOBIN (BEAKER) (test 29.9 pg 25.7-32.2 bahq=984) MEAN CORPUSCULAR HEMOGLOBIN CONC (BEAKER) (test 30.7 GM/DL 32.3-36.5 lktc=941) RED CELL DISTRIBUTION WIDTH (BEAKER) (test 15.5 % 11.6-14.4 pnnu=146) PLATELET COUNT (BEAKER) (test bwln=754) 473 K/CU MM 150-450 MEAN PLATELET VOLUME (BEAKER) (test mjqf=591) 10.0 fL 9.4-12.4 NUCLEATED RED BLOOD CELLS (BEAKER) (test 0 /100 WBC 0-0 rutd=449) (CELLAVISION MANUAL DIFF)2018-07-23 11:50:00 Test Item Value Reference Range Comments NEUTROPHILS - REL (CELLAVISION)(BEAKER) (test 80 % enry=8969) LYMPHOCYTES - REL (CELLAVISION)(BEAKER) (test 8 % vlyh=1722) MONOCYTES - REL (CELLAVISION)(BEAKER) (test 4 % ykds=8609) EOSINOPHILS - REL (CELLAVISION)(BEAKER) (test 1 % qxja=2912) MYELOCYTES - REL (CELLAVISION)(BEAKER) (test 2 % 0-0 nvsd=9645) BANDS - REL (CELLAVISION)(BEAKER) (test 4 % 0-10 cwtg=9176) NEUTROPHILS - ABS (CELLAVISION)(BEAKER) (test 10.56 K/ul 1.78-5.38 bepm=0783) LYMPHOCYTES - ABS (CELLAVISION)(BEAKER) (test 1.06 K/ul 1.32-3.57 xsyt=7707) MONOCYTES - ABS (CELLAVISION)(BEAKER) (test 0.53 K/uL 0.30-0.82 cuub=2321) EOSINOPHILS - ABS (CELLAVISION)(BEAKER) (test 0.13 K/uL 0.04-0.54 brfs=8173) MYELOCYTES-ABS (CELLAVISION)(BEAKER) (test 0.26 K/uL 0.00-0.00 kdjs=5418) BANDS - ABS (CELLAVISION)(BEAKER) (test 0.53 K/uL 0.00-0.80 vbcf=8764) TOTAL COUNTED (BEAKER) (test fbqx=4020) 100 WBC MORPHOLOGY (BEAKER) (test nbvw=400) Normal PLT MORPHOLOGY (BEAKER) (test rygj=726) Normal ANISOCYTOSIS (BEAKER) (test izsb=380) 2+ moderate MICROCYTES (BEAKER) (test whgs=567) 1+ few ARTIFACT (CELLAVISION)(BEAKER) (test rohu=4016) Present PLATELET CONCENTRATION (CELLAVISION)(BEAKER) Increased (test xzup=2804) Received comment: User comments: Slide comments:SPUTUM CULTURE + GRAM [id number] 10:46:00 Test Item Value Reference Range Comments CULTURE (BEAKER) (test <1+ Normal respiratory maximo icom=5133) present GRAM STAIN RESULT (BEAKER) <1+ White blood cells seen (test rubu=1939) GRAM STAIN RESULT (BEAKER) 0-5 epithelial cells (test eknp=79523) GRAM STAIN RESULT (BEAKER) No organisms seen (test tybq=64877) [id number] 06:07:00 Test Item Value Reference Range Comments PHOSPHORUS (BEAKER) (test znhq=593) 4.6 mg/dL 2.3-4.7 [id number] 06:07:00 Test Item Value Reference Range Comments MAGNESIUM (BEAKER) (test yuzp=603) 2.0 mg/dL 1.6-2.6 BASIC METABOLIC [id number] 06:07:00 Test Item Value Reference Range Comments SODIUM (BEAKER) (test 140 meq/L 136-145 dpbd=400) POTASSIUM (BEAKER) (test 4.3 meq/L 3.5-5.1 yhvq=034) CHLORIDE (BEAKER) (test 101 meq/L 98-107 qmek=378) CO2 (BEAKER) (test 31 meq/L 22-29 uywg=266) BLOOD UREA NITROGEN 10 mg/dL 7-21 (BEAKER) (test vbmq=519) CREATININE (BEAKER) (test 0.67 mg/dL 0.57-1.25 nmtu=604) GLUCOSE RANDOM (BEAKER) 111 mg/dL 70-105 (test thay=283) CALCIUM (BEAKER) (test 8.7 mg/dL 8.4-10.2 grkw=606) EGFR (BEAKER) (test 127 mL/min/1.73 sq m ESTIMATED GFR IS NOT hhzx=9683) ACCURATE CREATININE CLEARANCE IN PREDICTING GLOMERULAR FILTRATION RATE. ESTIMATED GFR IS NOT APPLICABLE FOR DIALYSIS PATIENTS. VANCOMYCIN LEVEL, [id number] 23:12:00 Test Item Value Reference Range Comments VANCOMYCIN TROUGH (BEAKER) (test ycej=734) 3.2 ug/mL 10.0-20.0 POCT-GLUCOSE [id number] 17:57:00 Test Item Value Reference Range Comments POC-GLUCOSE METER (BEAKER) 105 mg/dL 70-110 TESTED AT [address] (test catf=0658) [facility] [address] CBC W/PLT COUNT & AUTO [id number] 13:00:00 Test Item Value Reference Range Comments WHITE BLOOD CELL COUNT (BEAKER) (test buqs=156) 12.5 K/ L 3.5-10.5 RED BLOOD CELL COUNT (BEAKER) (test rtfi=083) 3.46 M/ L 4.63-6.08 HEMOGLOBIN (BEAKER) (test ynse=282) 10.4 GM/DL 13.7-17.5 HEMATOCRIT (BEAKER) (test rtnf=997) 33.5 % 40.1-51.0 MEAN CORPUSCULAR VOLUME (BEAKER) (test egdw=510) 96.8 fL 79.0-92.2 MEAN CORPUSCULAR HEMOGLOBIN (BEAKER) (test 30.1 pg 25.7-32.2 smjc=112) MEAN CORPUSCULAR HEMOGLOBIN CONC (BEAKER) (test 31.0 GM/DL 32.3-36.5 mkrq=545) RED CELL DISTRIBUTION WIDTH (BEAKER) (test 15.4 % 11.6-14.4 zqcn=944) PLATELET COUNT (BEAKER) (test folu=699) 425 K/CU MM 150-450 MEAN PLATELET VOLUME (BEAKER) (test bmvn=640) 10.1 fL 9.4-12.4 NUCLEATED RED BLOOD CELLS (BEAKER) (test 0 /100 WBC 0-0 jyst=470) (CELLAVISION MANUAL DIFF)2018-07-22 13:00:00 Test Item Value Reference Range Comments NEUTROPHILS - REL (CELLAVISION)(BEAKER) (test 80 % syjq=1805) LYMPHOCYTES - REL (CELLAVISION)(BEAKER) (test 4 % rfrx=2929) MONOCYTES - REL (CELLAVISION)(BEAKER) (test 6 % ywbf=7707) EOSINOPHILS - REL (CELLAVISION)(BEAKER) (test 6 % dafn=9425) BASOPHILS - REL (CELLAVISION)(BEAKER) (test 1 % efsm=6899) MYELOCYTES - REL (CELLAVISION)(BEAKER) (test 3 % 0-0 cmhr=6393) NEUTROPHILS - ABS (CELLAVISION)(BEAKER) (test 10.00 K/ul 1.78-5.38 lzdt=9740) LYMPHOCYTES - ABS (CELLAVISION)(BEAKER) (test 0.50 K/ul 1.32-3.57 oqpu=0557) MONOCYTES - ABS (CELLAVISION)(BEAKER) (test 0.75 K/uL 0.30-0.82 fjst=1472) EOSINOPHILS - ABS (CELLAVISION)(BEAKER) (test 0.75 K/uL 0.04-0.54 uiof=8614) BASOPHILS - ABS (CELLAVISION)(BEAKER) (test 0.13 K/uL 0.01-0.08 gegr=4403) MYELOCYTES-ABS (CELLAVISION)(BEAKER) (test 0.38 K/uL 0.00-0.00 mdaf=5712) TOTAL COUNTED (BEAKER) (test lcfs=3469) 100 WBC MORPHOLOGY (BEAKER) (test wjmg=195) Normal PLT MORPHOLOGY (BEAKER) (test syms=242) Normal POLYCHROMATOPHILLIC RBCS(BEAKER) (test jrif=615) 1+ few ANISOCYTOSIS (BEAKER) (test hpdt=777) 1+ few MACROCYTES (BEAKER) (test bajw=322) 1+ few POIKILOCYTES (BEAKER) (test tbom=948) 2+ moderate ARTIFACT (CELLAVISION)(BEAKER) (test dppo=4931) Present PLATELET CONCENTRATION (CELLAVISION)(BEAKER) Adequate (test jqgf=6006) Received comment: User comments: Slide comments:POCT-GLUCOSE [id number] 12: 50:00 Test Item Value Reference Range Comments POC-GLUCOSE METER (BEAKER) 117 mg/dL 70-[address] [facility] [address] [facility] (test xkcp=2417) [facility] [address] [id number] 07:00:00 Test Item Value Reference Range Comments PHOSPHORUS (BEAKER) (test bmfd=200) 4.2 mg/dL 2.3-4.7 [id number] 07:00:00 Test Item Value Reference Range Comments MAGNESIUM (BEAKER) (test zriu=690) 1.9 mg/dL 1.6-2.6 BASIC METABOLIC [id number] 07:00:00 Test Item Value Reference Range Comments SODIUM (BEAKER) (test 140 meq/L 136-145 lbqx=561) POTASSIUM (BEAKER) (test 4.0 meq/L 3.5-5.1 ddew=999) CHLORIDE (BEAKER) (test 101 meq/L 98-107 zqkl=270) CO2 (BEAKER) (test 32 meq/L 22-29 zoem=894) BLOOD UREA NITROGEN 9 mg/dL 7-21 (BEAKER) (test pqwq=841) CREATININE (BEAKER) (test 0.62 mg/dL 0.57-1.25 hmqq=270) GLUCOSE RANDOM (BEAKER) 104 mg/dL 70-105 (test ydrr=554) CALCIUM (BEAKER) (test 8.4 mg/dL 8.4-10.2 njlf=971) EGFR (BEAKER) (test 138 mL/min/1.73 sq m ESTIMATED GFR IS NOT ceyt=8713) ACCURATE CREATININE CLEARANCE IN PREDICTING GLOMERULAR FILTRATION RATE. ESTIMATED GFR IS NOT APPLICABLE FOR DIALYSIS PATIENTS. CBC W/PLT COUNT & AUTO [id number] 10:11:00 Test Item Value Reference Range Comments WHITE BLOOD CELL COUNT (BEAKER) (test hfkz=075) 10.8 K/ L 3.5-10.5 RED BLOOD CELL COUNT (BEAKER) (test dzqy=241) 3.48 M/ L 4.63-6.08 HEMOGLOBIN (BEAKER) (test jsfd=338) 10.6 GM/DL 13.7-17.5 HEMATOCRIT (BEAKER) (test fijv=011) 33.9 % 40.1-51.0 MEAN CORPUSCULAR VOLUME (BEAKER) (test udlr=609) 97.4 fL 79.0-92.2 MEAN CORPUSCULAR HEMOGLOBIN (BEAKER) (test 30.5 pg 25.7-32.2 kecc=433) MEAN CORPUSCULAR HEMOGLOBIN CONC (BEAKER) (test 31.3 GM/DL 32.3-36.5 joha=146) RED CELL DISTRIBUTION WIDTH (BEAKER) (test 15.4 % 11.6-14.4 sppr=570) PLATELET COUNT (BEAKER) (test dyzz=678) 431 K/CU MM 150-450 MEAN PLATELET VOLUME (BEAKER) (test kgjf=255) 10.0 fL 9.4-12.4 NUCLEATED RED BLOOD CELLS (BEAKER) (test 0 /100 WBC 0-0 gnzw=213) (CELLAVISION MANUAL DIFF)2018-07-21 10:11:00 Test Item Value Reference Range Comments NEUTROPHILS - REL (CELLAVISION)(BEAKER) (test 77 % wfmf=6357) LYMPHOCYTES - REL (CELLAVISION)(BEAKER) (test 3 % nuit=2479) MONOCYTES - REL (CELLAVISION)(BEAKER) (test 7 % sooo=8300) EOSINOPHILS - REL (CELLAVISION)(BEAKER) (test 3 % nsur=0953) MYELOCYTES - REL (CELLAVISION)(BEAKER) (test 4 % 0-0 zcbu=1726) PROMYELOCYTES - REL (CELLAVSION)(BEAKER) (test 1 % 0-0 ayki=5654) BANDS - REL (CELLAVISION)(BEAKER) (test 5 % 0-10 wdrg=4135) NEUTROPHILS - ABS (CELLAVISION)(BEAKER) (test 8.32 K/ul 1.78-5.38 jjqh=2909) LYMPHOCYTES - ABS (CELLAVISION)(BEAKER) (test 0.32 K/ul 1.32-3.57 pfri=5041) MONOCYTES - ABS (CELLAVISION)(BEAKER) (test 0.76 K/uL 0.30-0.82 kiqq=8030) EOSINOPHILS - ABS (CELLAVISION)(BEAKER) (test 0.32 K/uL 0.04-0.54 gwqv=7808) MYELOCYTES-ABS (CELLAVISION)(BEAKER) (test 0.43 K/uL 0.00-0.00 teul=1445) PROMYELOCYTES - ABS (CELLAVISION)(BEAKER) (test 0.11 K/uL 0.00-0.00 ilsj=9216) BANDS - ABS (CELLAVISION)(BEAKER) (test 0.54 K/uL 0.00-0.80 tskw=6074) TOTAL COUNTED (BEAKER) (test krkt=8789) 100 WBC MORPHOLOGY (BEAKER) (test lvcn=110) Normal PLT MORPHOLOGY (BEAKER) (test spwc=466) Normal ANISOCYTOSIS (BEAKER) (test ndep=718) 2+ moderate MICROCYTES (BEAKER) (test dtlq=257) 2+ moderate ARTIFACT (CELLAVISION)(BEAKER) (test jver=5807) Present PLATELET CONCENTRATION (CELLAVISION)(BEAKER) Adequate (test qpfj=5384) Received comment: User comments: Slide comments:[id number] 05:39:00 Test Item Value Reference Range Comments PHOSPHORUS (BEAKER) (test jkfw=337) 5.1 mg/dL 2.3-4.7 [id number] 05:39:00 Test Item Value Reference Range Comments MAGNESIUM (BEAKER) (test mwnv=587) 2.0 mg/dL 1.6-2.6 BASIC METABOLIC [id number] 05:39:00 Test Item Value Reference Range Comments SODIUM (BEAKER) (test 139 meq/L 136-145 pcfv=077) POTASSIUM (BEAKER) (test 4.3 meq/L 3.5-5.1 wzvw=823) CHLORIDE (BEAKER) (test 100 meq/L 98-107 irzr=275) CO2 (BEAKER) (test 29 meq/L 22-29 hmdy=938) BLOOD UREA NITROGEN 10 mg/dL 7-21 (BEAKER) (test avxh=446) CREATININE (BEAKER) (test 0.64 mg/dL 0.57-1.25 yand=904) GLUCOSE RANDOM (BEAKER) 97 mg/dL 70-105 (test potb=591) CALCIUM (BEAKER) (test 8.6 mg/dL 8.4-10.2 mvzq=671) EGFR (BEAKER) (test 133 mL/min/1.73 sq m ESTIMATED GFR IS NOT cubk=7932) ACCURATE CREATININE CLEARANCE IN PREDICTING GLOMERULAR FILTRATION RATE. ESTIMATED GFR IS NOT APPLICABLE FOR DIALYSIS PATIENTS. VANCOMYCIN LEVEL, [id number] 23:38:00 Test Item Value Reference Range Comments VANCOMYCIN TROUGH (BEAKER) (test igls=557) 5.5 ug/mL 10.0-20.0 CBC W/PLT COUNT & AUTO [id number] 10:44:00 Test Item Value Reference Range Comments WHITE BLOOD CELL COUNT (BEAKER) (test bmqs=205) 14.3 K/ L 3.5-10.5 RED BLOOD CELL COUNT (BEAKER) (test ejff=194) 3.43 M/ L 4.63-6.08 HEMOGLOBIN (BEAKER) (test oenm=061) 10.4 GM/DL 13.7-17.5 HEMATOCRIT (BEAKER) (test uyqt=787) 33.5 % 40.1-51.0 MEAN CORPUSCULAR VOLUME (BEAKER) (test rjrq=890) 97.7 fL 79.0-92.2 MEAN CORPUSCULAR HEMOGLOBIN (BEAKER) (test 30.3 pg 25.7-32.2 pmam=758) MEAN CORPUSCULAR HEMOGLOBIN CONC (BEAKER) (test 31.0 GM/DL 32.3-36.5 zpzw=921) RED CELL DISTRIBUTION WIDTH (BEAKER) (test 15.7 % 11.6-14.4 aatg=681) PLATELET COUNT (BEAKER) (test briq=609) 402 K/CU MM 150-450 MEAN PLATELET VOLUME (BEAKER) (test qjlo=109) 10.6 fL 9.4-12.4 NUCLEATED RED BLOOD CELLS (BEAKER) (test 0 /100 WBC 0-0 vznq=730) (CELLAVISION MANUAL DIFF)[id number] 10:44:00 Test Item Value Reference Range Comments NEUTROPHILS - REL (CELLAVISION)(BEAKER) (test 83 % zanz=7540) LYMPHOCYTES - REL (CELLAVISION)(BEAKER) (test 2 % zzdt=0065) MONOCYTES - REL (CELLAVISION)(BEAKER) (test 9 % hdzu=0657) EOSINOPHILS - REL (CELLAVISION)(BEAKER) (test 3 % ggul=5581) MYELOCYTES - REL (CELLAVISION)(BEAKER) (test 1 % 0-0 baor=9988) BANDS - REL (CELLAVISION)(BEAKER) (test 2 % 0-10 kxow=1265) NEUTROPHILS - ABS (CELLAVISION)(BEAKER) (test 11.87 K/ul 1.78-5.38 sial=7852) LYMPHOCYTES - ABS (CELLAVISION)(BEAKER) (test 0.29 K/ul 1.32-3.57 wiov=7696) MONOCYTES - ABS (CELLAVISION)(BEAKER) (test 1.29 K/uL 0.30-0.82 qoti=5461) EOSINOPHILS - ABS (CELLAVISION)(BEAKER) (test 0.43 K/uL 0.04-0.54 sdqu=4452) MYELOCYTES-ABS (CELLAVISION)(BEAKER) (test 0.14 K/uL 0.00-0.00 elxu=7560) BANDS - ABS (CELLAVISION)(BEAKER) (test 0.29 K/uL 0.00-0.80 zozy=3839) TOTAL COUNTED (BEAKER) (test wjpx=4940) 100 WBC MORPHOLOGY (BEAKER) (test mvyu=008) Normal GIANT PLATELETS (BEAKER) (test wywg=946) Present POLYCHROMATOPHILLIC RBCS(BEAKER) (test evyz=358) 1+ few ANISOCYTOSIS (BEAKER) (test glwg=746) 1+ few ARTIFACT (CELLAVISION)(BEAKER) (test llqj=3338) Present PLATELET CONCENTRATION (CELLAVISION)(BEAKER) Adequate (test tnhb=2786) Received comment: User comments: Slide comments:[id number] 06:44:00 Test Item Value Reference Range Comments MAGNESIUM (BEAKER) (test 2.1 mg/dL 1.6-2.6 Specimen slightly hemolyzed jajh=727) [id number] 06:44:00 Test Item Value Reference Range Comments PHOSPHORUS (BEAKER) (test 5.0 mg/dL 2.3-4.7 Specimen slightly hemolyzed oydg=492) BASIC METABOLIC [id number] 06:44:00 Test Item Value Reference Range Comments SODIUM (BEAKER) (test 138 meq/L 136-145 ozwl=908) POTASSIUM (BEAKER) (test 4.6 meq/L 3.5-5.1 Specimen slightly kfve=107) hemolyzed CHLORIDE (BEAKER) (test 99 meq/L 98-107 zetl=134) CO2 (BEAKER) (test 30 meq/L 22-29 bcjd=040) BLOOD UREA NITROGEN 10 mg/dL 7-21 (BEAKER) (test yiqo=841) CREATININE (BEAKER) (test 0.67 mg/dL 0.57-1.25 Specimen slightly eynz=155) hemolyzed GLUCOSE RANDOM (BEAKER) 87 mg/dL 70-105 (test kccz=231) CALCIUM (BEAKER) (test 8.7 mg/dL 8.4-10.2 gcyp=397) EGFR (BEAKER) (test 127 mL/min/1.73 sq m ESTIMATED GFR IS NOT kncp=0236) ACCURATE CREATININE CLEARANCE IN PREDICTING GLOMERULAR FILTRATION RATE. ESTIMATED GFR IS NOT APPLICABLE FOR DIALYSIS PATIENTS. [id number] 06:06:00 Test Item Value Reference Range Comments PROTIME (BEAKER) (test kfnl=784) 15.6 seconds 11.7-14.7 INR (BEAKER) (test njsm=346) 1.2 <=5.9 PARTIAL THROMBOPLASTIN TIME (BEAKER) (test 46.0 seconds 22.5-36.0 daar=301) RECOMMENDED COUMADIN/WARFARIN INR THERAPY RANGESSTANDARD DOSE: 2.0 - 3.0 Includes: PROPHYLAXIS forvenous thrombosis, systemic embolization; TREATMENT for venous thrombosis and/or pulmonary embolus.HIGH RISK: Target INR is 2.5-3.5 for patients with mechanical heart valves.SPUTUM CULTURE + GRAM [id number] 14:44:00 Test Item Value Reference Range Comments CULTURE (BEAKER) (test Oropharyngeal contamination, okto=4150) specimen rejected. Recollect requested. GRAM STAIN RESULT (BEAKER) <1+ WBCs (test qkcj=6278) GRAM STAIN RESULT (BEAKER) >25 epithelial cells (test hpqt=10456) GRAM STAIN RESULT (BEAKER) <1+ gram positive rods (test lxhk=07478) RAD, CHEST, 1 VIEW, NON [id number] 13:59:00Reason for exam:-> leukocytosis in setting of [...] MDReport Verified Date/Time: 07/19/2018 13:59:21 Reading Location: [address] Consult Reading Room URINALYSIS W/ REFLEX URINE [id number] 11:14:00 Test Item Value Reference Range Comments COLOR (BEAKER) (test jazc=955) Light Yellow CLARITY (BEAKER) (test uwxg=954) Clear SPECIFIC GRAVITY UA (BEAKER) (test qzzz=282) 1.013 1.001-1.035 PH UA (BEAKER) (test jqzu=628) 6.0 5.0-8.0 PROTEIN UA (BEAKER) (test ygpf=737) Negative Negative GLUCOSE UA (BEAKER) (test pxlz=180) Negative Negative KETONES UA (BEAKER) (test ghfc=023) Negative Negative BILIRUBIN UA (BEAKER) (test bowt=682) Negative Negative BLOOD UA (BEAKER) (test fwpg=368) Trace Negative NITRITE UA (BEAKER) (test rkla=658) Negative Negative LEUKOCYTE ESTERASE UA (BEAKER) (test qwhy=585) Small Negative UROBILINOGEN UA (BEAKER) (test ggzo=369) 0.2 mg/dL 0.2-1.0 RBC UA (BEAKER) (test vbxf=206) 2 /HPF WBC UA (BEAKER) (test fyux=011) 15 /HPF MUCUS (BEAKER) (test jcqv=0003) Occasional HYALINE CASTS (BEAKER) (test vxgr=526) 2 /LPF SOURCE(BEAKER) (test djkz=8618) POCT-GLUCOSE [id number] 06:46:00 Test Item Value Reference Range Comments POC-GLUCOSE METER (BEAKER) 102 mg/dL 70-[address] [facility] [address] [facility] (test sfkn=4075) [facility] [address] [id number] 04:52:00 Test Item Value Reference Range Comments PHOSPHORUS (BEAKER) (test rule=782) 4.1 mg/dL 2.3-4.7 [id number] 04:52:00 Test Item Value Reference Range Comments MAGNESIUM (BEAKER) (test ohpi=998) 1.8 mg/dL 1.6-2.6 BASIC METABOLIC [id number] 04:52:00 Test Item Value Reference Range Comments SODIUM (BEAKER) (test 138 meq/L 136-145 ilio=592) POTASSIUM (BEAKER) (test 3.7 meq/L 3.5-5.1 bexl=750) CHLORIDE (BEAKER) (test 101 meq/L 98-107 sner=763) CO2 (BEAKER) (test 26 meq/L 22-29 vnft=224) BLOOD UREA NITROGEN 10 mg/dL 7-21 (BEAKER) (test egpb=357) CREATININE (BEAKER) (test 0.67 mg/dL 0.57-1.25 ovbm=740) GLUCOSE RANDOM (BEAKER) 111 mg/dL 70-105 (test acva=062) CALCIUM (BEAKER) (test 8.5 mg/dL 8.4-10.2 rahl=496) EGFR (BEAKER) (test 127 mL/min/1.73 sq m ESTIMATED GFR IS NOT xsxl=8284) ACCURATE CREATININE CLEARANCE IN PREDICTING GLOMERULAR FILTRATION RATE. ESTIMATED GFR IS NOT APPLICABLE FOR DIALYSIS PATIENTS. CBC W/PLT COUNT & AUTO [id number] 04:25:00 Test Item Value Reference Range Comments WHITE BLOOD CELL COUNT (BEAKER) (test fxab=275) 13.6 K/ L 3.5-10.5 RED BLOOD CELL COUNT (BEAKER) (test qbiz=680) 3.58 M/ L 4.63-6.08 HEMOGLOBIN (BEAKER) (test tmdr=602) 10.8 GM/DL 13.7-17.5 HEMATOCRIT (BEAKER) (test pvjp=562) 34.8 % 40.1-51.0 MEAN CORPUSCULAR VOLUME (BEAKER) (test medp=168) 97.2 fL 79.0-92.2 MEAN CORPUSCULAR HEMOGLOBIN (BEAKER) (test 30.2 pg 25.7-32.2 mvhr=565) MEAN CORPUSCULAR HEMOGLOBIN CONC (BEAKER) (test 31.0 GM/DL 32.3-36.5 wfjf=075) RED CELL DISTRIBUTION WIDTH (BEAKER) (test 15.1 % 11.6-14.4 swel=504) PLATELET COUNT (BEAKER) (test dxth=620) 392 K/CU MM 150-450 MEAN PLATELET VOLUME (BEAKER) (test hpei=919) 10.0 fL 9.4-12.4 NUCLEATED RED BLOOD CELLS (BEAKER) (test 0 /100 WBC 0-0 aezn=205) NEUTROPHILS RELATIVE PERCENT (BEAKER) (test 78 % wgtx=702) LYMPHOCYTES RELATIVE PERCENT (BEAKER) (test 5 % nbae=943) MONOCYTES RELATIVE PERCENT (BEAKER) (test 10 % lzqj=174) EOSINOPHILS RELATIVE PERCENT (BEAKER) (test 2 % jbzc=551) BASOPHILS RELATIVE PERCENT (BEAKER) (test 1 % gpcp=484) NEUTROPHILS ABSOLUTE COUNT (BEAKER) (test 10.68 K/ L 1.78-5.38 etly=940) LYMPHOCYTES ABSOLUTE COUNT (BEAKER) (test 0.68 K/ L 1.32-3.57 nhaw=731) MONOCYTES ABSOLUTE COUNT (BEAKER) (test 1.40 K/ L 0.30-0.82 vhle=138) EOSINOPHILS ABSOLUTE COUNT (BEAKER) (test 0.31 K/ L 0.04-0.54 dytv=720) BASOPHILS ABSOLUTE COUNT (BEAKER) (test 0.08 K/ L 0.01-0.08 audv=753) IMMATURE GRANULOCYTES-RELATIVE PERCENT (BEAKER) 3 % 0-1 (test xcuk=3970) [id number] 04:11:00 Test Item Value Reference Range Comments PROTIME (BEAKER) (test xgfy=033) 15.8 seconds 11.7-14.7 INR (BEAKER) (test jfll=700) 1.2 <=5.9 PARTIAL THROMBOPLASTIN TIME (BEAKER) (test 48.2 seconds 22.5-36.0 fhzh=715) RECOMMENDED COUMADIN/WARFARIN INR THERAPY RANGESSTANDARD DOSE: 2.0 - 3.0 Includes: PROPHYLAXIS forvenous thrombosis, systemic embolization; TREATMENT for venous thrombosis and/or pulmonary embolus.HIGH RISK: Target INR is 2.5-3.5 for patients with mechanical heart valves.POCT-GLUCOSE [id number] 00:11:00 Test Item Value Reference Range Comments POC-GLUCOSE METER (BEAKER) 76 mg/dL 70-110 TESTED AT [address] (test bjwn=8221) [place] [address] POCT-GLUCOSE [id number] 17:53:00 Test Item Value Reference Range Comments POC-GLUCOSE METER (BEAKER) 94 mg/dL 70-110 TESTED AT [address] (test jpsh=4938) [place] [address] T4, [id number] 11:41:00 Test Item Value Reference Range Comments FREE T4 (BEAKER) (test elzc=774) 0.90 ng/dL 0.70-1.48 POCT-GLUCOSE [id number] 11:35:00 Test Item Value Reference Range Comments POC-GLUCOSE METER (BEAKER) 103 mg/dL 70-110 TESTED AT [address] (test nkty=8514) [place] [address] TSH/FREE T4 IF [id number] 10:50:00 Test Item Value Reference Range Comments THYROID STIMULATING HORMONE (BEAKER) (test 14.67 uIU/mL 0.35-4.94 inab=962) POCT-GLUCOSE [id number] 06:42:00 Test Item Value Reference Range Comments POC-GLUCOSE METER (BEAKER) 111 mg/dL 70-110 TESTED AT [address] (test dacl=6858) [place] [address] CBC W/PLT COUNT & AUTO [id number] 05:20:00 Test Item Value Reference Range Comments WHITE BLOOD CELL COUNT (BEAKER) (test cglo=286) 11.4 K/ L 3.5-10.5 RED BLOOD CELL COUNT (BEAKER) (test vikm=427) 3.40 M/ L 4.63-6.08 HEMOGLOBIN (BEAKER) (test xysw=357) 10.3 GM/DL 13.7-17.5 HEMATOCRIT (BEAKER) (test dlwx=831) 33.6 % 40.1-51.0 MEAN CORPUSCULAR VOLUME (BEAKER) (test bgkn=847) 98.8 fL 79.0-92.2 MEAN CORPUSCULAR HEMOGLOBIN (BEAKER) (test 30.3 pg 25.7-32.2 yzrv=338) MEAN CORPUSCULAR HEMOGLOBIN CONC (BEAKER) (test 30.7 GM/DL 32.3-36.5 bnrx=015) RED CELL DISTRIBUTION WIDTH (BEAKER) (test 15.3 % 11.6-14.4 erdr=437) PLATELET COUNT (BEAKER) (test qcke=829) 365 K/CU MM 150-450 MEAN PLATELET VOLUME (BEAKER) (test yhjn=187) 10.2 fL 9.4-12.4 NUCLEATED RED BLOOD CELLS (BEAKER) (test 0 /100 WBC 0-0 oufu=620) NEUTROPHILS RELATIVE PERCENT (BEAKER) (test 80 % acvq=715) LYMPHOCYTES RELATIVE PERCENT (BEAKER) (test 6 % mlav=571) MONOCYTES RELATIVE PERCENT (BEAKER) (test 9 % bstg=300) EOSINOPHILS RELATIVE PERCENT (BEAKER) (test 3 % sncd=093) BASOPHILS RELATIVE PERCENT (BEAKER) (test 0 % ifmb=541) NEUTROPHILS ABSOLUTE COUNT (BEAKER) (test 9.06 K/ L 1.78-5.38 wgln=274) LYMPHOCYTES ABSOLUTE COUNT (BEAKER) (test 0.72 K/ L 1.32-3.57 qmdp=505) MONOCYTES ABSOLUTE COUNT (BEAKER) (test 1.06 K/ L 0.30-0.82 mpyl=586) EOSINOPHILS ABSOLUTE COUNT (BEAKER) (test 0.28 K/ L 0.04-0.54 oswd=903) BASOPHILS ABSOLUTE COUNT (BEAKER) (test 0.05 K/ L 0.01-0.08 crwa=235) IMMATURE GRANULOCYTES-RELATIVE PERCENT (BEAKER) 2 % 0-1 (test tucq=9264) [id number] 05:00:00 Test Item Value Reference Range Comments PHOSPHORUS (BEAKER) (test xujs=733) 5.2 mg/dL 2.3-4.7 [id number] 05:00:00 Test Item Value Reference Range Comments MAGNESIUM (BEAKER) (test akfp=309) 2.0 mg/dL 1.6-2.6 BASIC METABOLIC [id number] 05:00:00 Test Item Value Reference Range Comments SODIUM (BEAKER) (test 141 meq/L 136-145 asat=050) POTASSIUM (BEAKER) (test 3.7 meq/L 3.5-5.1 jisd=130) CHLORIDE (BEAKER) (test 102 meq/L 98-107 gpdc=152) CO2 (BEAKER) (test 29 meq/L 22-29 bmdr=514) BLOOD UREA NITROGEN 7 mg/dL 7-21 (BEAKER) (test jhoe=234) CREATININE (BEAKER) (test 0.68 mg/dL 0.57-1.25 zauh=263) GLUCOSE RANDOM (BEAKER) 114 mg/dL 70-105 (test vvip=515) CALCIUM (BEAKER) (test 8.2 mg/dL 8.4-10.2 flwk=041) EGFR (BEAKER) (test 124 mL/min/1.73 sq m ESTIMATED GFR IS NOT rfuu=8883) ACCURATE CREATININE CLEARANCE IN PREDICTING GLOMERULAR FILTRATION RATE. ESTIMATED GFR IS NOT APPLICABLE FOR DIALYSIS PATIENTS. PT/[id number] 04:55:00 Test Item Value Reference Range Comments PROTIME (BEAKER) (test mdcv=424) 15.2 seconds 11.7-14.7 INR (BEAKER) (test fvvg=786) 1.2 <=5.9 PARTIAL THROMBOPLASTIN TIME (BEAKER) (test 38.9 seconds 22.5-36.0 ehdg=057) RECOMMENDED COUMADIN/WARFARIN INR THERAPY RANGESSTANDARD DOSE: 2.0 - 3.0 Includes: PROPHYLAXIS forvenous thrombosis, systemic embolization; TREATMENT for venous thrombosis and/or pulmonary embolus.HIGH RISK: Target INR is 2.5-3.5 for patients with mechanical heart valves.CBC W/PLT COUNT & AUTO [id number] 08:47:00 Test Item Value Reference Range Comments WHITE BLOOD CELL COUNT (BEAKER) (test msfg=611) 13.2 K/ L 3.5-10.5 RED BLOOD CELL COUNT (BEAKER) (test wrdi=336) 3.21 M/ L 4.63-6.08 HEMOGLOBIN (BEAKER) (test oekr=833) 9.8 GM/DL 13.7-17.5 HEMATOCRIT (BEAKER) (test rggd=989) 30.9 % 40.1-51.0 MEAN CORPUSCULAR VOLUME (BEAKER) (test wlwl=402) 96.3 fL 79.0-92.2 MEAN CORPUSCULAR HEMOGLOBIN (BEAKER) (test 30.5 pg 25.7-32.2 qzsk=263) MEAN CORPUSCULAR HEMOGLOBIN CONC (BEAKER) (test 31.7 GM/DL 32.3-36.5 iytd=463) RED CELL DISTRIBUTION WIDTH (BEAKER) (test 15.2 % 11.6-14.4 qweh=301) PLATELET COUNT (BEAKER) (test klvp=161) 310 K/CU MM 150-450 MEAN PLATELET VOLUME (BEAKER) (test kirb=663) 10.1 fL 9.4-12.4 NUCLEATED RED BLOOD CELLS (BEAKER) (test 0 /100 WBC 0-0 borg=488) (CELLAVISION MANUAL DIFF)2018-07-17 08:47:00 Test Item Value Reference Range Comments NEUTROPHILS - REL (CELLAVISION)(BEAKER) (test 88 % tcta=5067) LYMPHOCYTES - REL (CELLAVISION)(BEAKER) (test 2 % vzds=0878) MONOCYTES - REL (CELLAVISION)(BEAKER) (test 5 % megt=5141) EOSINOPHILS - REL (CELLAVISION)(BEAKER) (test 3 % iilp=8275) MYELOCYTES - REL (CELLAVISION)(BEAKER) (test 1 % 0-0 zclr=4100) ATYPICAL LYMPHOCYTES - REL (CELLAVISION)(BEAKER) 1 % 0-0 (test cehg=2770) NEUTROPHILS - ABS (CELLAVISION)(BEAKER) (test 11.62 K/ul 1.78-5.38 guvm=3463) LYMPHOCYTES - ABS (CELLAVISION)(BEAKER) (test 0.26 K/ul 1.32-3.57 osvw=2044) MONOCYTES - ABS (CELLAVISION)(BEAKER) (test 0.66 K/uL 0.30-0.82 krgg=6796) EOSINOPHILS - ABS (CELLAVISION)(BEAKER) (test 0.40 K/uL 0.04-0.54 hlma=9560) MYELOCYTES-ABS (CELLAVISION)(BEAKER) (test 0.13 K/uL 0.00-0.00 fsaw=0289) ATYPICAL LYMPHOCYTES - ABS (CELLAVISION)(BEAKER) 0.13 K/uL 0.00-0.00 (test udsc=3838) TOTAL COUNTED (BEAKER) (test plna=4444) 100 WBC MORPHOLOGY (BEAKER) (test ebpe=032) Normal PLT MORPHOLOGY (BEAKER) (test dwww=126) Normal ANISOCYTOSIS (BEAKER) (test cwdb=669) 2+ moderate MICROCYTES (BEAKER) (test dpcs=300) 2+ moderate ARTIFACT (CELLAVISION)(BEAKER) (test bifl=5533) Present PLATELET CONCENTRATION (CELLAVISION)(BEAKER) Adequate (test jfug=9893) Received comment: User comments: Slide comments:POCT-GLUCOSE [id number] 06: 41:00 Test Item Value Reference Range Comments POC-GLUCOSE METER (BEAKER) 115 mg/dL 70-[address] [facility] [address] [facility] (test tvyp=1938) [facility] [address] BASIC METABOLIC [id number] 04:53:00 Test Item Value Reference Range Comments SODIUM (BEAKER) (test 138 meq/L 136-145 gdky=146) POTASSIUM (BEAKER) (test 3.4 meq/L 3.5-5.1 mssk=004) CHLORIDE (BEAKER) (test 104 meq/L 98-107 wuvi=853) CO2 (BEAKER) (test 25 meq/L 22-29 izjy=955) BLOOD UREA NITROGEN 7 mg/dL 7-21 (BEAKER) (test iopr=308) CREATININE (BEAKER) (test 0.68 mg/dL 0.57-1.25 ymxq=299) GLUCOSE RANDOM (BEAKER) 173 mg/dL 70-105 (test xoiz=434) CALCIUM (BEAKER) (test 7.6 mg/dL 8.4-10.2 ofoc=240) EGFR (BEAKER) (test 124 mL/min/1.73 sq m ESTIMATED GFR IS NOT vplk=1902) ACCURATE CREATININE CLEARANCE IN PREDICTING GLOMERULAR FILTRATION RATE. ESTIMATED GFR IS NOT APPLICABLE FOR DIALYSIS PATIENTS. [id number] 04:37:00 Test Item Value Reference Range Comments PHOSPHORUS (BEAKER) (test nwkx=716) 3.9 mg/dL 2.3-4.7 [id number] 04:37:00 Test Item Value Reference Range Comments MAGNESIUM (BEAKER) (test bcru=010) 1.6 mg/dL 1.6-2.6 [id number] 04:37:00 Test Item Value Reference Range Comments ALBUMIN (BEAKER) (test ezvd=2396) 3.2 g/dL 3.5-5.0 [id number] 04:24:00 Test Item Value Reference Range Comments PROTIME (BEAKER) (test pxtc=859) 15.9 seconds 11.7-14.7 INR (BEAKER) (test dvjj=983) 1.2 <=5.9 PARTIAL THROMBOPLASTIN TIME (BEAKER) (test 51.7 seconds 22.5-36.0 nmsv=004) RECOMMENDED COUMADIN/WARFARIN INR THERAPY RANGESSTANDARD DOSE: 2.0 - 3.0 Includes: PROPHYLAXIS forvenous thrombosis, systemic embolization; TREATMENT for venous thrombosis and/or pulmonary embolus.HIGH RISK: Target INR is 2.5-3.5 for patients with mechanical heart valves.RAD, CHEST, 1 VIEW, NON [id number] 03:56:00Reason for exam:->atelectasisShould this be performed [...] MDReport Verified Date/Time: 07/17/2018 03:56:49 Reading Location: [address] Reading Room POCT-GLUCOSE [id number] 00: 56:00 Test Item Value Reference Range Comments POC-GLUCOSE METER (BEAKER) 115 mg/dL 70-[address] [facility] [address] [facility] (test riej=9747) [facility] [address] POCT-GLUCOSE [id number] 18:10:00 Test Item Value Reference Range Comments POC-GLUCOSE METER (BEAKER) 116 mg/dL 70-110 TESTED AT [address] (test xwxc=5017) [place] [id number] POCT-GLUCOSE [id number] 13:10:00 Test Item Value Reference Range Comments POC-GLUCOSE METER (BEAKER) 115 mg/dL 70-110 TESTED AT [address] (test yxhh=8971) [place] [address] RAD, CHEST, 1 VIEW, NON [id number] 08:20:00Reason for exam:-> atelectasisShould this be performed [...] Verified Date/Time: 2018 08:20:57 ReadingLocation: [facility] B1 [id number] Ortho Consult Reading Room TROPONIN [id number] 08:03:00 Test Item Value Reference Range Comments TROPONIN I (BEAKER) (test setc=327) 0.01 ng/mL 0.00-0.03 Troponin I (TnI) levels [...] acute neurological disease, and persistent tachyarrhythmia.BLOOD GAS, [id number] 07:42:00 Test Item Value Reference Range Comments PH ARTERIAL (BEAKER) (test jafo=008) 7.42 7.35-7.45 PCO2 ARTERIAL (BEAKER) (test yagf=200) 40 mmHg 35-45 PO2 ARTERIAL (BEAKER) (test bhry=616) 77 mmHg 80-90 O2 SATURATION ARTERIAL (BEAKER) (test souy=483) 95.8 % 96.0-97.0 HCO3 ARTERIAL (BEAKER) (test eumt=166) 25 mmol/L 21-29 BASE EXCESS ARTERIAL (BEAKER) (test soxo=379) 0.9 mmol/L -2.0-3.0 PATIENT TEMPERATURE (BEAKER) (test bscx=1344) 36.8 C FIO2 (BEAKER) (test sima=0182) 44.0 % POCT-GLUCOSE [id number] 06:03:00 Test Item Value Reference Range Comments POC-GLUCOSE METER (BEAKER) 120 mg/dL 70-110 TESTED AT [address] (test xzur=5363) [facility] [address] CBC W/PLT COUNT & AUTO [id number] 04:00:00 Test Item Value Reference Range Comments WHITE BLOOD CELL COUNT (BEAKER) (test trgl=798) 20.3 K/ L 3.5-10.5 RED BLOOD CELL COUNT (BEAKER) (test elvn=287) 3.66 M/ L 4.63-6.08 HEMOGLOBIN (BEAKER) (test dcvn=104) 11.3 GM/DL 13.7-17.5 HEMATOCRIT (BEAKER) (test flnc=901) 36.0 % 40.1-51.0 MEAN CORPUSCULAR VOLUME (BEAKER) (test jbcg=768) 98.4 fL 79.0-92.2 MEAN CORPUSCULAR HEMOGLOBIN (BEAKER) (test 30.9 pg 25.7-32.2 ugeq=793) MEAN CORPUSCULAR HEMOGLOBIN CONC (BEAKER) (test 31.4 GM/DL 32.3-36.5 llin=251) RED CELL DISTRIBUTION WIDTH (BEAKER) (test 15.0 % 11.6-14.4 ysku=696) PLATELET COUNT (BEAKER) (test fzuw=767) 319 K/CU MM 150-450 MEAN PLATELET VOLUME (BEAKER) (test mdny=362) 10.5 fL 9.4-12.4 NUCLEATED RED BLOOD CELLS (BEAKER) (test 0 /100 WBC 0-0 qfvc=790) NEUTROPHILS RELATIVE PERCENT (BEAKER) (test 86 % ylld=659) LYMPHOCYTES RELATIVE PERCENT (BEAKER) (test 4 % siav=950) MONOCYTES RELATIVE PERCENT (BEAKER) (test 9 % vwtd=313) EOSINOPHILS RELATIVE PERCENT (BEAKER) (test 0 % adcx=322) BASOPHILS RELATIVE PERCENT (BEAKER) (test 0 % yztk=142) NEUTROPHILS ABSOLUTE COUNT (BEAKER) (test 17.32 K/ L 1.78-5.38 jdza=837) LYMPHOCYTES ABSOLUTE COUNT (BEAKER) (test 0.72 K/ L 1.32-3.57 zder=602) MONOCYTES ABSOLUTE COUNT (BEAKER) (test 1.82 K/ L 0.30-0.82 zdim=823) EOSINOPHILS ABSOLUTE COUNT (BEAKER) (test 0.07 K/ L 0.04-0.54 gqec=915) BASOPHILS ABSOLUTE COUNT (BEAKER) (test 0.07 K/ L 0.01-0.08 qexx=151) IMMATURE GRANULOCYTES-RELATIVE PERCENT (BEAKER) 1 % 0-1 (test efqr=3338) [id number] 03:38:00 Test Item Value Reference Range Comments MAGNESIUM (BEAKER) (test 2.0 mg/dL 1.6-2.6 Specimen slightly hemolyzed szqh=597) [id number] 03:38:00 Test Item Value Reference Range Comments PHOSPHORUS (BEAKER) (test 3.6 mg/dL 2.3-4.7 Specimen slightly hemolyzed olrs=318) BASIC METABOLIC [id number] 03:38:00 Test Item Value Reference Range Comments SODIUM (BEAKER) (test 140 meq/L 136-145 yxis=994) POTASSIUM (BEAKER) (test 4.0 meq/L 3.5-5.1 Specimen slightly kjbm=200) hemolyzed CHLORIDE (BEAKER) (test 105 meq/L 98-107 vpmd=432) CO2 (BEAKER) (test 25 meq/L 22-29 oamr=309) BLOOD UREA NITROGEN 5 mg/dL 7-21 (BEAKER) (test opob=813) CREATININE (BEAKER) (test 0.73 mg/dL 0.57-1.25 Specimen slightly bgnf=828) hemolyzed GLUCOSE RANDOM (BEAKER) 129 mg/dL 70-105 (test bwlw=545) CALCIUM (BEAKER) (test 8.5 mg/dL 8.4-10.2 xxxs=418) EGFR (BEAKER) (test 115 mL/min/1.73 sq m ESTIMATED GFR IS NOT jusi=3318) ACCURATE CREATININE CLEARANCE IN PREDICTING GLOMERULAR FILTRATION RATE. ESTIMATED GFR IS NOT APPLICABLE FOR DIALYSIS PATIENTS. [id number] 03:38:00 Test Item Value Reference Range Comments ALBUMIN (BEAKER) (test 3.9 g/dL 3.5-5.0 Specimen slightly hemolyzed zzao=5697) [id number] 03:31:00 Test Item Value Reference Range Comments PROTIME (BEAKER) (test saib=686) 15.5 seconds 11.7-14.7 INR (BEAKER) (test jtoz=223) 1.2 <=5.9 PARTIAL THROMBOPLASTIN TIME (BEAKER) (test 34.5 seconds 22.5-36.0 qhfg=662) RECOMMENDED COUMADIN/WARFARIN INR THERAPY RANGESSTANDARD DOSE: 2.0 - 3.0 Includes: PROPHYLAXIS forvenous thrombosis, systemic embolization; TREATMENT for venous thrombosis and/or pulmonary embolus.HIGH RISK: Target INR is 2.5-3.5 for patients with mechanical heart valves.POCT-GLUCOSE [id number] 23:39:00 Test Item Value Reference Range Comments POC-GLUCOSE METER (BEAKER) 121 mg/dL 70-110 TESTED AT [address] (test djqs=4288) [facility] [address] POCT-GLUCOSE [id number] 18:25:00 Test Item Value Reference Range Comments POC-GLUCOSE METER (BEAKER) 112 mg/dL 70-110 TESTED AT [address] (test ciqr=1569) [facility] [address] T4, [id number] 12:56:00 Test Item Value Reference Range Comments FREE T4 (BEAKER) (test juan=217) 1.17 ng/dL 0.70-1.48 POCT-GLUCOSE [id number] 11:35:00 Test Item Value Reference Range Comments POC-GLUCOSE METER (BEAKER) 143 mg/dL 70-[address] [facility] [address] (test tjvr=5138) [place] [address] CBC W/PLT COUNT & AUTO [id number] 07:50:00 Test Item Value Reference Range Comments WHITE BLOOD CELL COUNT (BEAKER) (test dpfm=623) 24.1 K/ L 3.5-10.5 RED BLOOD CELL COUNT (BEAKER) (test iyfz=305) 3.75 M/ L 4.63-6.08 HEMOGLOBIN (BEAKER) (test nveq=727) 11.7 GM/DL 13.7-17.5 HEMATOCRIT (BEAKER) (test bqfy=999) 35.7 % 40.1-51.0 MEAN CORPUSCULAR VOLUME (BEAKER) (test hnxd=348) 95.2 fL 79.0-92.2 MEAN CORPUSCULAR HEMOGLOBIN (BEAKER) (test 31.2 pg 25.7-32.2 wlip=903) MEAN CORPUSCULAR HEMOGLOBIN CONC (BEAKER) (test 32.8 GM/DL 32.3-36.5 zydq=707) RED CELL DISTRIBUTION WIDTH (BEAKER) (test 14.8 % 11.6-14.4 ufem=251) PLATELET COUNT (BEAKER) (test ophf=843) 334 K/CU MM 150-450 MEAN PLATELET VOLUME (BEAKER) (test msbe=532) 10.3 fL 9.4-12.4 NUCLEATED RED BLOOD CELLS (BEAKER) (test 0 /100 WBC 0-0 tjaq=448) (CELLAVISION MANUAL DIFF)2018-07-15 07:50:00 Test Item Value Reference Range Comments NEUTROPHILS - REL (CELLAVISION)(BEAKER) (test 87 % faui=6579) LYMPHOCYTES - REL (CELLAVISION)(BEAKER) (test 3 % dsjq=7863) MONOCYTES - REL (CELLAVISION)(BEAKER) (test 5 % ctqo=3013) METAMYELOCYTES - REL (CELLAVISION)(BEAKER) (test 1 % 0-0 tqdo=6264) MYELOCYTES - REL (CELLAVISION)(BEAKER) (test 1 % 0-0 hqrv=1555) BANDS - REL (CELLAVISION)(BEAKER) (test 2 % 0-10 xnct=4995) ATYPICAL LYMPHOCYTES - REL (CELLAVISION)(BEAKER) 1 % 0-0 (test hepa=7198) NEUTROPHILS - ABS (CELLAVISION)(BEAKER) (test 20.97 K/ul 1.78-5.38 osln=5107) LYMPHOCYTES - ABS (CELLAVISION)(BEAKER) (test 0.72 K/ul 1.32-3.57 qhgl=9137) MONOCYTES - ABS (CELLAVISION)(BEAKER) (test 1.21 K/uL 0.30-0.82 uclv=6885) METAMYELOCYTES - ABS (CELLAVISION)(BEAKER) (test 0.24 K/uL 0.00-0.00 jeem=6298) MYELOCYTES-ABS (CELLAVISION)(BEAKER) (test 0.24 K/uL 0.00-0.00 hefu=0148) BANDS - ABS (CELLAVISION)(BEAKER) (test 0.48 K/uL 0.00-0.80 fcpq=7968) ATYPICAL LYMPHOCYTES - ABS (CELLAVISION)(BEAKER) 0.24 K/uL 0.00-0.00 (test gnan=2065) TOTAL COUNTED (BEAKER) (test hkfq=7310) 100 WBC MORPHOLOGY (BEAKER) (test wpck=798) Normal PLT MORPHOLOGY (BEAKER) (test thrc=058) Normal ANISOCYTOSIS (BEAKER) (test liml=787) 2+ moderate MICROCYTES (BEAKER) (test crjl=485) 2+ moderate ARTIFACT (CELLAVISION)(BEAKER) (test kjeb=4406) Present PLATELET CONCENTRATION (CELLAVISION)(BEAKER) Adequate (test chcd=3076) Received comment: User comments: Slide comments:RAD, CHEST, 1 VIEW, NON [id number] -04-16 05:48:00Reason for exam:->postop laryngectomy with trachShould [...] [place] Verified Date/Time: 2018 05:48:22 Reading Location: [address] Neuro Reading Room POCT-GLUCOSE [id number] 05:47:00 Test Item Value Reference Range Comments POC-GLUCOSE METER (BEAKER) 177 mg/dL 70-[address] [facility] [address] [facility] (test uaqq=3271) [facility] [address] [id number] 04:29:00 Test Item Value Reference Range Comments PHOSPHORUS (BEAKER) (test kbqw=849) 2.3 mg/dL 2.3-4.7 [id number] 04:29:00 Test Item Value Reference Range Comments MAGNESIUM (BEAKER) (test tgqm=091) 1.7 mg/dL 1.6-2.6 BASIC METABOLIC [id number] 04:29:00 Test Item Value Reference Range Comments SODIUM (BEAKER) (test 136 meq/L 136-145 bjzn=898) POTASSIUM (BEAKER) (test 3.7 meq/L 3.5-5.1 odxl=129) CHLORIDE (BEAKER) (test 103 meq/L 98-107 qqyy=787) CO2 (BEAKER) (test 24 meq/L 22-29 kyfn=333) BLOOD UREA NITROGEN 7 mg/dL 7-21 (BEAKER) (test fero=426) CREATININE (BEAKER) (test 0.73 mg/dL 0.57-1.25 gsqr=881) GLUCOSE RANDOM (BEAKER) 179 mg/dL 70-105 (test ntnt=854) CALCIUM (BEAKER) (test 9.2 mg/dL 8.4-10.2 wsnj=150) EGFR (BEAKER) (test 115 mL/min/1.73 sq m ESTIMATED GFR IS NOT qzbf=6558) ACCURATE CREATININE CLEARANCE IN PREDICTING GLOMERULAR FILTRATION RATE. ESTIMATED GFR IS NOT APPLICABLE FOR DIALYSIS PATIENTS. [id number] 04:29:00 Test Item Value Reference Range Comments ALBUMIN (BEAKER) (test spsb=7957) 3.8 g/dL 3.5-5.0 [id number] 04:22:00 Test Item Value Reference Range Comments PROTIME (BEAKER) (test hwao=985) 14.5 seconds 11.7-14.7 INR (BEAKER) (test eryc=433) 1.1 <=5.9 PARTIAL THROMBOPLASTIN TIME (BEAKER) (test 42.0 seconds 22.5-36.0 sxkm=861) RECOMMENDED COUMADIN/WARFARIN INR THERAPY RANGESSTANDARD DOSE: 2.0 - 3.0 Includes: PROPHYLAXIS forvenous thrombosis, systemic embolization; TREATMENT for venous thrombosis and/or pulmonary embolus.HIGH RISK: Target INR is 2.5-3.5 for patients with mechanical heart valves.POCT-GLUCOSE [id number] 23:55:00 Test Item Value Reference Range Comments POC-GLUCOSE METER (BEAKER) 159 mg/dL 70-[address] [facility] [address] [place] [address] (test lkqj=2704) [facility] [address] [id number] 19:41:00 Test Item Value Reference Range Comments THYROID STIMULATING HORMONE (BEAKER) (test 6.82 uIU/mL 0.35-4.94 yqov=421) [id number] 19:26:00 Test Item Value Reference Range Comments PHOSPHORUS (BEAKER) (test lasu=744) 4.9 mg/dL 2.3-4.7 Postop labsPostop labsPostop labsPostop [id number] 19:26:00 Test Item Value Reference Range Comments MAGNESIUM (BEAKER) (test xjmj=566) 1.9 mg/dL 1.6-2.6 Postop labsPostop labsPostop labsPostop labsBASIC METABOLIC [id number] 19: 26:00 Test Item Value Reference Range Comments SODIUM (BEAKER) (test 140 meq/L 136-145 xlkr=504) POTASSIUM (BEAKER) (test 4.6 meq/L 3.5-5.1 hzlw=783) CHLORIDE (BEAKER) (test 107 meq/L 98-107 feij=952) CO2 (BEAKER) (test 26 meq/L 22-29 erkq=199) BLOOD UREA NITROGEN 8 mg/dL 7-21 (BEAKER) (test zknj=807) CREATININE (BEAKER) (test 0.77 mg/dL 0.57-1.25 obtu=993) GLUCOSE RANDOM (BEAKER) 109 mg/dL 70-105 (test cqbt=609) CALCIUM (BEAKER) (test 9.4 mg/dL 8.4-10.2 wepb=721) EGFR (BEAKER) (test 108 mL/min/1.73 sq m ESTIMATED GFR IS NOT hzmk=2579) ACCURATE CREATININE CLEARANCE IN PREDICTING GLOMERULAR FILTRATION RATE. ESTIMATED GFR IS NOT APPLICABLE FOR DIALYSIS PATIENTS. Postop labsPostop labsPostop labsPostop [id number] 19:26:00 Test Item Value Reference Range Comments ALBUMIN (BEAKER) (test owim=4935) 3.9 g/dL 3.5-5.0 Postop labsPostop labsPostop labsPostop [id number] 19:24:00 Test Item Value Reference Range Comments PREALBUMIN (BEAKER) (test 17 mg/dL 14-45 Specimen slightly hemolyzed olft=715) PTH, [id number] 19:23:00 Test Item Value Reference Range Comments PARATHYROID HORMONE INTACT (BEAKER) (test 16.1 pg/mL 8.5-72.5 kfvl=550) Postop LabsCBC W/PLT COUNT & AUTO [id number] 18:58:00 Test Item Value Reference Range Comments WHITE BLOOD CELL COUNT (BEAKER) (test tlwl=742) 13.3 K/ L 3.5-10.5 RED BLOOD CELL COUNT (BEAKER) (test xawr=118) 3.50 M/ L 4.63-6.08 HEMOGLOBIN (BEAKER) (test fgyz=284) 10.8 GM/DL 13.7-17.5 HEMATOCRIT (BEAKER) (test osco=115) 34.1 % 40.1-51.0 MEAN CORPUSCULAR VOLUME (BEAKER) (test pfjm=595) 97.4 fL 79.0-92.2 MEAN CORPUSCULAR HEMOGLOBIN (BEAKER) (test 30.9 pg 25.7-32.2 zzaw=238) MEAN CORPUSCULAR HEMOGLOBIN CONC (BEAKER) (test 31.7 GM/DL 32.3-36.5 fyrx=725) RED CELL DISTRIBUTION WIDTH (BEAKER) (test 15.1 % 11.6-14.4 uxry=214) PLATELET COUNT (BEAKER) (test gvmc=936) 278 K/CU MM 150-450 MEAN PLATELET VOLUME (BEAKER) (test hdie=276) 9.5 fL 9.4-12.4 NUCLEATED RED BLOOD CELLS (BEAKER) (test 0 /100 WBC 0-0 wdyz=498) NEUTROPHILS RELATIVE PERCENT (BEAKER) (test 84 % uijf=223) LYMPHOCYTES RELATIVE PERCENT (BEAKER) (test 6 % eqqr=489) MONOCYTES RELATIVE PERCENT (BEAKER) (test 8 % arfl=267) EOSINOPHILS RELATIVE PERCENT (BEAKER) (test 1 % kokx=024) BASOPHILS RELATIVE PERCENT (BEAKER) (test 0 % dooo=599) NEUTROPHILS ABSOLUTE COUNT (BEAKER) (test 11.15 K/ L 1.78-5.38 vcts=899) LYMPHOCYTES ABSOLUTE COUNT (BEAKER) (test 0.73 K/ L 1.32-3.57 vfsh=832) MONOCYTES ABSOLUTE COUNT (BEAKER) (test 1.04 K/ L 0.30-0.82 keot=578) EOSINOPHILS ABSOLUTE COUNT (BEAKER) (test 0.15 K/ L 0.04-0.54 nqea=893) BASOPHILS ABSOLUTE COUNT (BEAKER) (test 0.05 K/ L 0.01-0.08 kjjh=200) IMMATURE GRANULOCYTES-RELATIVE PERCENT (BEAKER) 1 % 0-1 (test fcoc=1934) BLOOD GAS, [id number] 15:31:00 Test Item Value Reference Range Comments PH ARTERIAL (BEAKER) (test seto=454) 7.37 7.35-7.45 PCO2 ARTERIAL (BEAKER) (test nswu=305) 46 mmHg 35-45 PO2 ARTERIAL (BEAKER) (test rkpp=444) 273 mmHg 80-90 O2 SATURATION ARTERIAL (BEAKER) (test ijlu=898) 99.6 % 96.0-97.0 HCO3 ARTERIAL (BEAKER) (test twbm=311) 26 mmol/L 21-29 BASE EXCESS ARTERIAL (BEAKER) (test fbow=235) 0.4 mmol/L -2.0-3.0 PATIENT TEMPERATURE (BEAKER) (test cels=4010) 37.0 C FIO2 (BEAKER) (test fbuv=4054) 100.0 % HGB/HCT (H&H) - STAT [id number] 15:31:00 Test Item Value Reference Range Comments HEMOGLOBIN (BEAKER) (test jlai=194) 11.0 g/dL 13.0-16.8 HEMATOCRIT (BEAKER) (test gfah=045) 32.0 % 40.0-50.0 GLUCOSE-STAT [id number] 15:30:00 Test Item Value Reference Range Comments GLUCOSE RANDOM (BEAKER) (test wbfs=102) 87 mg/dL 70-110 SODIUM NA-STAT [id number] 15:30:00 Test Item Value Reference Range Comments SODIUM (BEAKER) (test mpep=435) 137 meq/L 135-148 POTASSIUM-STAT [id number] 15:30:00 Test Item Value Reference Range Comments POTASSIUM (BEAKER) (test plfs=573) 4.0 meq/L 3.6-5.5 ANG, INSERTION G TUBE, W/ [id number] 14:18:00Reason for exam:-> Gastrostomy tubeFINAL REPORT Fluoroscopic guided gastrostomy tube placement, 07/11/2018. Clinical History: Laryngeal cancer. Modality: Fluoroscopy. Medical Supervisor: Jack Lima MD. Lumber Planer: Dilip Vivas MD. Conscious sedation: 2.0 mg [...] After the tract was dilated, a 14 Cambodian catheter was placed into the stomach. The [...] Verified Date/Time: 07/11/2018 14:18 :50 Reading Location: [place] [address] Angio Body Reading Room Electronically signed by: JACK Rose 07/11/2018 02:18 PMTSH/FREE T4 IF [id number] 13:24:00 Test Item Value Reference Range Comments THYROID STIMULATING HORMONE (BEAKER) (test 2.37 uIU/mL 0.35-4.94 qthb=143) RAD, CHEST, PA OR AP, 1 [id number] 11:03:00Reason for exam:->coughShould this be performed at the bedside?->NoFINAL REPORT AP chest HISTORY: Cough. COMPARISON: 06/17/2018. IMPRESSION: Tracheostomy tube present. Heart size normal. Lungs clear without effusion or pneumothorax. Intact skeleton. Signed: Ashok Whitaker Verified Date/Time: 2018 11:03:24 Reading Location: [address] Radiology Reading Room 11:03 AMCOMPREHENSIVE METABOLIC [id number] 10:52:00 Test Item Value Reference Range Comments TOTAL PROTEIN (BEAKER) 7.2 gm/dL 6.0-8.3 (test azro=452) ALBUMIN (BEAKER) (test 3.9 g/dL 3.5-5.0 hxpv=4504) ALKALINE PHOSPHATASE 98 U/L 40-150 (BEAKER) (test cxom=192) BILIRUBIN TOTAL (BEAKER) 0.4 mg/dL 0.2-1.2 (test auho=593) SODIUM (BEAKER) (test 141 meq/L 136-145 qeht=773) POTASSIUM (BEAKER) (test 4.4 meq/L 3.5-5.1 urvp=298) CHLORIDE (BEAKER) (test 109 meq/L 98-107 ttde=379) CO2 (BEAKER) (test 24 meq/L 22-29 pprz=533) BLOOD UREA NITROGEN 14 mg/dL 7-21 (BEAKER) (test jwjt=704) CREATININE (BEAKER) (test 0.78 mg/dL 0.57-1.25 khtv=636) GLUCOSE RANDOM (BEAKER) 107 mg/dL 70-105 (test bxbt=537) CALCIUM (BEAKER) (test 9.4 mg/dL 8.4-10.2 ljwq=250) AST (SGOT) (BEAKER) (test 17 U/L 5-34 vsmt=668) ALT (SGPT) (BEAKER) (test 17 U/L 6-55 kvjd=615) EGFR (BEAKER) (test 106 mL/min/1.73 sq ESTIMATED GFR IS NOT rxps=8185) m ACCURATE CREATININE CLEARANCE IN PREDICTING GLOMERULAR FILTRATION RATE. ESTIMATED GFR IS NOT APPLICABLE FOR DIALYSIS PATIENTS. CBC W/PLT COUNT & AUTO [id number] 10:32:00 Test Item Value Reference Range Comments WHITE BLOOD CELL COUNT (BEAKER) (test xyig=989) 10.8 K/ L 3.5-10.5 RED BLOOD CELL COUNT (BEAKER) (test yclh=883) 4.08 M/ L 4.63-6.08 HEMOGLOBIN (BEAKER) (test jjpn=836) 12.6 GM/DL 13.7-17.5 HEMATOCRIT (BEAKER) (test qfau=048) 39.4 % 40.1-51.0 MEAN CORPUSCULAR VOLUME (BEAKER) (test xltd=320) 96.6 fL 79.0-92.2 MEAN CORPUSCULAR HEMOGLOBIN (BEAKER) (test 30.9 pg 25.7-32.2 iqwb=940) MEAN CORPUSCULAR HEMOGLOBIN CONC (BEAKER) (test 32.0 GM/DL 32.3-36.5 rtrs=612) RED CELL DISTRIBUTION WIDTH (BEAKER) (test 15.3 % 11.6-14.4 utwq=891) PLATELET COUNT (BEAKER) (test ylrp=733) 321 K/CU MM 150-450 MEAN PLATELET VOLUME (BEAKER) (test lgru=697) 9.9 fL 9.4-12.4 NUCLEATED RED BLOOD CELLS (BEAKER) (test 0 /100 WBC 0-0 vdxs=692) NEUTROPHILS RELATIVE PERCENT (BEAKER) (test 76 % wbei=665) LYMPHOCYTES RELATIVE PERCENT (BEAKER) (test 7 % oexm=810) MONOCYTES RELATIVE PERCENT (BEAKER) (test 10 % asfm=612) EOSINOPHILS RELATIVE PERCENT (BEAKER) (test 2 % rmrr=063) BASOPHILS RELATIVE PERCENT (BEAKER) (test 1 % rwvo=565) NEUTROPHILS ABSOLUTE COUNT (BEAKER) (test 8.18 K/ L 1.78-5.38 fsmr=431) LYMPHOCYTES ABSOLUTE COUNT (BEAKER) (test 0.79 K/ L 1.32-3.57 pgkz=121) MONOCYTES ABSOLUTE COUNT (BEAKER) (test 1.04 K/ L 0.30-0.82 wkvz=844) EOSINOPHILS ABSOLUTE COUNT (BEAKER) (test 0.16 K/ L 0.04-0.54 dime=424) BASOPHILS ABSOLUTE COUNT (BEAKER) (test 0.13 K/ L 0.01-0.08 flzo=926) IMMATURE GRANULOCYTES-RELATIVE PERCENT (BEAKER) 5 % 0-1 (test mwgp=0699) [id number] 10:30:00 Test Item Value Reference Range Comments PROTIME (BEAKER) (test gllu=038) 14.6 seconds 11.7-14.7 INR (BEAKER) (test axqe=082) 1.1 <=5.9 PARTIAL THROMBOPLASTIN TIME (BEAKER) (test 34.3 seconds 22.5-36.0 yodb=835) RECOMMENDED COUMADIN/WARFARIN INR THERAPY RANGESSTANDARD DOSE: 2.0 - 3.0 Includes: PROPHYLAXIS forvenous thrombosis, systemic embolization; TREATMENT for venous thrombosis and/or pulmonary embolus.HIGH RISK: Target INR is 2.5-3.5 for patients with mechanical heart valves.BLOOD [id number] 20:01:00 Test Item Value Reference Range Comments CULTURE (BEAKER) (test ewws=5344) No growth in 5 days BLOOD [id number] 20:01:00 Test Item Value Reference Range Comments CULTURE (BEAKER) (test rpoi=2190) No growth in 5 days CBC W/PLT COUNT & AUTO [id number] 12:54:00 Test Item Value Reference Range Comments WHITE BLOOD CELL COUNT (BEAKER) (test nosd=870) 6.6 K/ L 3.5-10.5 RED BLOOD CELL COUNT (BEAKER) (test xaqs=562) 3.84 M/ L 4.63-6.08 HEMOGLOBIN (BEAKER) (test tkks=042) 11.9 GM/DL 13.7-17.5 HEMATOCRIT (BEAKER) (test lpxw=712) 37.1 % 40.1-51.0 MEAN CORPUSCULAR VOLUME (BEAKER) (test xcsi=160) 96.6 fL 79.0-92.2 MEAN CORPUSCULAR HEMOGLOBIN (BEAKER) (test 31.0 pg 25.7-32.2 qpud=080) MEAN CORPUSCULAR HEMOGLOBIN CONC (BEAKER) (test 32.1 GM/DL 32.3-36.5 chyg=102) RED CELL DISTRIBUTION WIDTH (BEAKER) (test 15.1 % 11.6-14.4 mzrc=757) PLATELET COUNT (BEAKER) (test tbpv=898) 282 K/CU MM 150-450 MEAN PLATELET VOLUME (BEAKER) (test fthb=199) 10.3 fL 9.4-12.4 NUCLEATED RED BLOOD CELLS (BEAKER) (test 0 /100 WBC 0-0 gmdm=767) (CELLAVISION MANUAL DIFF)2018-06-21 12:54:00 Test Item Value Reference Range Comments NEUTROPHILS - REL (CELLAVISION)(BEAKER) (test 63 % ljxw=8787) LYMPHOCYTES - REL (CELLAVISION)(BEAKER) (test 10 % qnag=2437) MONOCYTES - REL (CELLAVISION)(BEAKER) (test 8 % poxr=2365) EOSINOPHILS - REL (CELLAVISION)(BEAKER) (test 2 % izty=2960) BASOPHILS - REL (CELLAVISION)(BEAKER) (test 2 % oiej=0920) METAMYELOCYTES - REL (CELLAVISION)(BEAKER) (test 2 % 0-0 exaf=5045) BANDS - REL (CELLAVISION)(BEAKER) (test qkre=0360) 12 % 0-10 NEUTROPHILS - ABS (CELLAVISION)(BEAKER) (test 4.16 K/ul 1.78-5.38 bewv=3839) LYMPHOCYTES - ABS (CELLAVISION)(BEAKER) (test 0.66 K/ul 1.32-3.57 dijk=0951) MONOCYTES - ABS (CELLAVISION)(BEAKER) (test 0.53 K/uL 0.30-0.82 errw=6403) EOSINOPHILS - ABS (CELLAVISION)(BEAKER) (test 0.13 K/uL 0.04-0.54 saix=3418) BASOPHILS - ABS (CELLAVISION)(BEAKER) (test 0.13 K/uL 0.01-0.08 ohxr=4345) METAMYELOCYTES - ABS (CELLAVISION)(BEAKER) (test 0.13 K/uL 0.00-0.00 sqnq=5857) BANDS - ABS (CELLAVISION)(BEAKER) (test osiy=2769) 0.79 K/uL 0.00-0.80 TOTAL COUNTED (BEAKER) (test vruc=0881) 100 WBC MORPHOLOGY (BEAKER) (test gtzc=492) Normal GIANT PLATELETS (BEAKER) (test rfdj=938) Present ANISOCYTOSIS (BEAKER) (test nxlg=341) 1+ few ARTIFACT (CELLAVISION)(BEAKER) (test nzqk=0932) Present PLATELET CONCENTRATION (CELLAVISION)(BEAKER) (test Adequate bxat=8625) Received comment: User comments: Slide comments:BASIC METABOLIC [id number] 06:44:00 Test Item Value Reference Range Comments SODIUM (BEAKER) (test 137 meq/L 136-145 mlvk=248) POTASSIUM (BEAKER) (test 4.0 meq/L 3.5-5.1 vpxi=532) CHLORIDE (BEAKER) (test 102 meq/L 98-107 ymvn=771) CO2 (BEAKER) (test 27 meq/L 22-29 zpja=436) BLOOD UREA NITROGEN 9 mg/dL 7-21 (BEAKER) (test kyvc=522) CREATININE (BEAKER) (test 0.66 mg/dL 0.57-1.25 pfwv=188) GLUCOSE RANDOM (BEAKER) 99 mg/dL 70-105 (test mqky=916) CALCIUM (BEAKER) (test 9.0 mg/dL 8.4-10.2 gbss=240) EGFR (BEAKER) (test 129 mL/min/1.73 sq m ESTIMATED GFR IS NOT cokd=8034) ACCURATE CREATININE CLEARANCE IN PREDICTING GLOMERULAR FILTRATION RATE. ESTIMATED GFR IS NOT APPLICABLE FOR DIALYSIS PATIENTS. BLOOD [id number] 12:01:00 Test Item Value Reference Range Comments CULTURE (BEAKER) (test zgqt=4684) No growth in 5 days CBC W/PLT COUNT & AUTO [id number] 11:06:00 Test Item Value Reference Range Comments WHITE BLOOD CELL COUNT (BEAKER) (test rqvk=273) 6.7 K/ L 3.5-10.5 RED BLOOD CELL COUNT (BEAKER) (test cefz=650) 3.88 M/ L 4.63-6.08 HEMOGLOBIN (BEAKER) (test mjiu=666) 12.4 GM/DL 13.7-17.5 HEMATOCRIT (BEAKER) (test ycnv=684) 36.8 % 40.1-51.0 MEAN CORPUSCULAR VOLUME (BEAKER) (test ytmo=688) 94.8 fL 79.0-92.2 MEAN CORPUSCULAR HEMOGLOBIN (BEAKER) (test 32.0 pg 25.7-32.2 axpu=899) MEAN CORPUSCULAR HEMOGLOBIN CONC (BEAKER) (test 33.7 GM/DL 32.3-36.5 bexw=080) RED CELL DISTRIBUTION WIDTH (BEAKER) (test 15.3 % 11.6-14.4 thxk=341) PLATELET COUNT (BEAKER) (test hvsr=001) 218 K/CU MM 150-450 MEAN PLATELET VOLUME (BEAKER) (test paci=327) 10.5 fL 9.4-12.4 NUCLEATED RED BLOOD CELLS (BEAKER) (test 0 /100 WBC 0-0 rslf=540) (CELLAVISION MANUAL DIFF)2018-06-20 11:06:00 Test Item Value Reference Range Comments NEUTROPHILS - REL (CELLAVISION)(BEAKER) (test 77 % hzby=0662) LYMPHOCYTES - REL (CELLAVISION)(BEAKER) (test 6 % siob=3310) MONOCYTES - REL (CELLAVISION)(BEAKER) (test 3 % igaj=5837) EOSINOPHILS - REL (CELLAVISION)(BEAKER) (test 2 % hual=7094) BANDS - REL (CELLAVISION)(BEAKER) (test qmzb=9035) 10 % 0-10 ATYPICAL LYMPHOCYTES - REL (CELLAVISION)(BEAKER) 2 % 0-0 (test micj=6389) NEUTROPHILS - ABS (CELLAVISION)(BEAKER) (test 5.16 K/ul 1.78-5.38 yywl=5388) LYMPHOCYTES - ABS (CELLAVISION)(BEAKER) (test 0.40 K/ul 1.32-3.57 pwtb=8037) MONOCYTES - ABS (CELLAVISION)(BEAKER) (test 0.20 K/uL 0.30-0.82 iqfy=9648) EOSINOPHILS - ABS (CELLAVISION)(BEAKER) (test 0.13 K/uL 0.04-0.54 iczu=0793) BANDS - ABS (CELLAVISION)(BEAKER) (test gkkc=7337) 0.67 K/uL 0.00-0.80 ATYPICAL LYMPHOCYTES - ABS (CELLAVISION)(BEAKER) 0.13 K/uL 0.00-0.00 (test dmev=3765) TOTAL COUNTED (BEAKER) (test cyeo=1007) 100 CLUMPED PLATELETS (BEAKER) (test kdkg=162) Present SMUDGE CELLS (BEAKER) (test acqu=6380) Present GIANT PLATELETS (BEAKER) (test hogf=612) Present TOXIC GRANULATION (BEAKER) (test tgcz=500) Present ANISOCYTOSIS (BEAKER) (test edgn=578) 1+ few PLATELET CONCENTRATION (CELLAVISION)(BEAKER) (test Adequate ywlq=6550) Received comment: User comments: Slide comments:BASIC METABOLIC [id number] 08:11:00 Test Item Value Reference Range Comments SODIUM (BEAKER) (test 134 meq/L 136-145 sbjl=840) POTASSIUM (BEAKER) (test 3.8 meq/L 3.5-5.1 hlqe=647) CHLORIDE (BEAKER) (test 97 meq/L 98-107 gefp=393) CO2 (BEAKER) (test 29 meq/L 22-29 lgki=854) BLOOD UREA NITROGEN 8 mg/dL 7-21 (BEAKER) (test ucmk=620) CREATININE (BEAKER) (test 0.65 mg/dL 0.57-1.25 uyoi=075) GLUCOSE RANDOM (BEAKER) 93 mg/dL 70-105 (test yste=747) CALCIUM (BEAKER) (test 9.0 mg/dL 8.4-10.2 wyfi=878) EGFR (BEAKER) (test 132 mL/min/1.73 sq m ESTIMATED GFR IS NOT dsjg=1912) ACCURATE CREATININE CLEARANCE IN PREDICTING GLOMERULAR FILTRATION RATE. ESTIMATED GFR IS NOT APPLICABLE FOR DIALYSIS PATIENTS. BLOOD [id number] 08:01:00 Test Item Value Reference Range Comments CULTURE (BEAKER) (test zlxd=5365) No growth in 5 days BLOOD [id number] 02:00:00 Test Item Value Reference Range Comments CULTURE (BEAKER) (test fflu=2621) No growth in 5 days BLOOD [id number] 02:00:00 Test Item Value Reference Range Comments CULTURE (BEAKER) (test ftxv=2660) No growth in 5 days CBC W/PLT COUNT & AUTO [id number] 15:32:00 Test Item Value Reference Range Comments WHITE BLOOD CELL COUNT (BEAKER) (test awho=368) 6.4 K/ L 3.5-10.5 RED BLOOD CELL COUNT (BEAKER) (test iijt=093) 4.16 M/ L 4.63-6.08 HEMOGLOBIN (BEAKER) (test jkgo=853) 13.2 GM/DL 13.7-17.5 HEMATOCRIT (BEAKER) (test gtpo=431) 39.5 % 40.1-51.0 MEAN CORPUSCULAR VOLUME (BEAKER) (test czoi=387) 95.0 fL 79.0-92.2 MEAN CORPUSCULAR HEMOGLOBIN (BEAKER) (test 31.7 pg 25.7-32.2 hsof=747) MEAN CORPUSCULAR HEMOGLOBIN CONC (BEAKER) (test 33.4 GM/DL 32.3-36.5 bbgk=383) RED CELL DISTRIBUTION WIDTH (BEAKER) (test 15.7 % 11.6-14.4 jfmm=362) PLATELET COUNT (BEAKER) (test onbu=440) 148 K/CU MM 150-450 MEAN PLATELET VOLUME (BEAKER) (test lhho=478) 10.7 fL 9.4-12.4 NUCLEATED RED BLOOD CELLS (BEAKER) (test 0 /100 WBC 0-0 uujf=393) (CELLAVISION MANUAL DIFF)2018-06-19 15:32:00 Test Item Value Reference Range Comments NEUTROPHILS - REL (CELLAVISION)(BEAKER) (test 73 % pady=1870) LYMPHOCYTES - REL (CELLAVISION)(BEAKER) (test 3 % vgkg=9795) MONOCYTES - REL (CELLAVISION)(BEAKER) (test 3 % ugpp=4900) METAMYELOCYTES - REL (CELLAVISION)(BEAKER) (test 2 % 0-0 hdal=5436) MYELOCYTES - REL (CELLAVISION)(BEAKER) (test 1 % 0-0 hxee=6141) BANDS - REL (CELLAVISION)(BEAKER) (test 16 % 0-10 fptt=1281) NEUTROPHILS - ABS (CELLAVISION)(BEAKER) (test 4.67 K/ul 1.78-5.38 kcnn=2914) LYMPHOCYTES - ABS (CELLAVISION)(BEAKER) (test 0.19 K/ul 1.32-3.57 oild=2826) MONOCYTES - ABS (CELLAVISION)(BEAKER) (test 0.19 K/uL 0.30-0.82 kyly=1643) METAMYELOCYTES - ABS (CELLAVISION)(BEAKER) (test 0.13 K/uL 0.00-0.00 buhz=3484) MYELOCYTES-ABS (CELLAVISION)(BEAKER) (test 0.06 K/uL 0.00-0.00 euob=8437) BANDS - ABS (CELLAVISION)(BEAKER) (test 1.02 K/uL 0.00-0.80 owbn=0886) TOTAL COUNTED (BEAKER) (test jqxf=9792) 100 GIANT PLATELETS (BEAKER) (test jzuy=852) Present TOXIC GRANULATION (BEAKER) (test alur=850) Present PLASMACYTOID LYMPHS(BEAKER) (test sddh=9286) Present POLYCHROMATOPHILLIC RBCS(BEAKER) (test qelb=853) 1+ few ANISOCYTOSIS (BEAKER) (test lumf=069) 2+ moderate MICROCYTES (BEAKER) (test vxeo=868) 2+ moderate POIKILOCYTES (BEAKER) (test rkee=382) 1+ few SPHEROCYTES (BEAKER) (test vtvj=650) 1+ few ARTIFACT (CELLAVISION)(BEAKER) (test bpqk=5420) Present HELMET CELLS (CELLAVISION)(BEAKER) (test 1+ few cikl=3935) PLATELET CONCENTRATION (CELLAVISION)(BEAKER) Decreased (test doqv=4561) Received comment: User comments: Slide comments:BASIC METABOLIC [id number] 07:38:00 Test Item Value Reference Range Comments SODIUM (BEAKER) (test 132 meq/L 136-145 imbo=865) POTASSIUM (BEAKER) (test 3.5 meq/L 3.5-5.1 zpof=789) CHLORIDE (BEAKER) (test 95 meq/L 98-107 boda=934) CO2 (BEAKER) (test 27 meq/L 22-29 prox=159) BLOOD UREA NITROGEN 11 mg/dL 7-21 (BEAKER) (test sprd=866) CREATININE (BEAKER) (test 0.61 mg/dL 0.57-1.25 jlml=573) GLUCOSE RANDOM (BEAKER) 94 mg/dL 70-105 (test tfno=792) CALCIUM (BEAKER) (test 8.8 mg/dL 8.4-10.2 nokp=797) EGFR (BEAKER) (test 142 mL/min/1.73 sq m ESTIMATED GFR IS NOT kgoe=1034) ACCURATE CREATININE CLEARANCE IN PREDICTING GLOMERULAR FILTRATION RATE. ESTIMATED GFR IS NOT APPLICABLE FOR DIALYSIS PATIENTS. CBC W/PLT COUNT & AUTO [id number] 12:37:00 Test Item Value Reference Range Comments WHITE BLOOD CELL COUNT (BEAKER) (test ojxd=282) 8.5 K/ L 3.5-10.5 RED BLOOD CELL COUNT (BEAKER) (test cjlw=671) 4.16 M/ L 4.63-6.08 HEMOGLOBIN (BEAKER) (test msdr=077) 13.0 GM/DL 13.7-17.5 HEMATOCRIT (BEAKER) (test xcih=717) 38.5 % 40.1-51.0 MEAN CORPUSCULAR VOLUME (BEAKER) (test lgxv=690) 92.5 fL 79.0-92.2 MEAN CORPUSCULAR HEMOGLOBIN (BEAKER) (test 31.3 pg 25.7-32.2 ympt=452) MEAN CORPUSCULAR HEMOGLOBIN CONC (BEAKER) (test 33.8 GM/DL 32.3-36.5 kzvg=588) RED CELL DISTRIBUTION WIDTH (BEAKER) (test 15.2 % 11.6-14.4 sexc=468) PLATELET COUNT (BEAKER) (test qega=658) 145 K/CU MM 150-450 MEAN PLATELET VOLUME (BEAKER) (test vtzr=344) 10.3 fL 9.4-12.4 NUCLEATED RED BLOOD CELLS (BEAKER) (test 0 /100 WBC 0-0 dqhw=120) (CELLAVISION MANUAL DIFF)2018-06-18 12:37:00 Test Item Value Reference Range Comments NEUTROPHILS - REL (CELLAVISION)(BEAKER) (test 72 % zznm=0545) LYMPHOCYTES - REL (CELLAVISION)(BEAKER) (test 2 % wibb=8338) BANDS - REL (CELLAVISION)(BEAKER) (test dyha=0777) 25 % 0-10 ATYPICAL LYMPHOCYTES - REL (CELLAVISION)(BEAKER) 1 % 0-0 (test nygw=5866) NEUTROPHILS - ABS (CELLAVISION)(BEAKER) (test 6.12 K/ul 1.78-5.38 yfqf=5649) LYMPHOCYTES - ABS (CELLAVISION)(BEAKER) (test 0.17 K/ul 1.32-3.57 ayfz=5564) BANDS - ABS (CELLAVISION)(BEAKER) (test ixaq=8674) 2.13 K/uL 0.00-0.80 ATYPICAL LYMPHOCYTES - ABS (CELLAVISION)(BEAKER) 0.09 K/uL 0.00-0.00 (test rllx=3323) TOTAL COUNTED (BEAKER) (test vsgf=0844) 100 RBC MORPHOLOGY (BEAKER) (test rmvq=747) Normal SMUDGE CELLS (BEAKER) (test nzhy=5573) Present GIANT PLATELETS (BEAKER) (test sids=708) Present TOXIC GRANULATION (BEAKER) (test segd=565) Present PLATELET CONCENTRATION (CELLAVISION)(BEAKER) (test Decreased ebkw=8493) Received comment: User comments: Slide comments:BASIC METABOLIC [id number] 12:04:00 Test Item Value Reference Range Comments SODIUM (BEAKER) (test 130 meq/L 136-145 kmdz=720) POTASSIUM (BEAKER) (test 3.1 meq/L 3.5-5.1 thvc=321) CHLORIDE (BEAKER) (test 93 meq/L 98-107 blaf=782) CO2 (BEAKER) (test 27 meq/L 22-29 fzjc=915) BLOOD UREA NITROGEN < mg/dL 7-21 (BEAKER) (test uosk=070) CREATININE (BEAKER) (test 0.66 mg/dL 0.57-1.25 back=690) GLUCOSE RANDOM (BEAKER) 157 mg/dL 70-105 (test owep=594) CALCIUM (BEAKER) (test 8.6 mg/dL 8.4-10.2 slyq=767) EGFR (BEAKER) (test 129 mL/min/1.73 sq m ESTIMATED GFR IS NOT lbwo=1988) ACCURATE CREATININE CLEARANCE IN PREDICTING GLOMERULAR FILTRATION RATE. ESTIMATED GFR IS NOT APPLICABLE FOR DIALYSIS PATIENTS. VANCOMYCIN LEVEL, [id number] 12:02:00 Test Item Value Reference Range Comments VANCOMYCIN RANDOM (BEAKER) (test uaic=209) 1.3 ug/mL Reference Range: No [id number] 12:00:00 Test Item Value Reference Range Comments MAGNESIUM (BEAKER) (test dehf=031) 2.2 mg/dL 1.6-2.6 SPUTUM CULTURE + GRAM [id number] 11:45:00 Test Item Value Reference Range Comments CULTURE (BEAKER) (test PSEUDOMONAS AERUGINOSA 4+ Pseudomonas pbnc=2557) aeruginosa Amikacin (test code=1) Susceptible 0-16 , [...] CULTURE (BEAKER) (test PSEUDOMONAS AERUGINOSA 4+ Pseudomonas qbej=3298) aeruginosa Amikacin (test code=1) Susceptible 0-16 , [...] GRAM STAIN RESULT 1+ WBCs (BEAKER) (test gmmx=3948) GRAM STAIN RESULT 15-20 epithelial cells (BEAKER) (test iizd=230573) GRAM STAIN RESULT <1+ gram negative (BEAKER) (test coccobacilli wubq=275358) GRAM STAIN RESULT <1+ gram positive (BEAKER) (test cocci in pairs sgxd=337371) GRAM STAIN RESULT <1+ yeast with (BEAKER) (test pseudohyphae lrzz=496541) GRAM STAIN RESULT 1+ gram variable rods (BEAKER) (test twbi=700373) 1+ Normal respiratory maximo presentC W/PLT COUNT & AUTO [id number] 18:36:00 Test Item Value Reference Range Comments WHITE BLOOD CELL COUNT (BEAKER) (test swun=576) 7.3 K/ L 3.5-10.5 RED BLOOD CELL COUNT (BEAKER) (test ride=972) 4.53 M/ L 4.63-6.08 HEMOGLOBIN (BEAKER) (test ouuw=851) 14.4 GM/DL 13.7-17.5 HEMATOCRIT (BEAKER) (test szoy=548) 42.2 % 40.1-51.0 MEAN CORPUSCULAR VOLUME (BEAKER) (test jdac=172) 93.2 fL 79.0-92.2 MEAN CORPUSCULAR HEMOGLOBIN (BEAKER) (test 31.8 pg 25.7-32.2 iful=827) MEAN CORPUSCULAR HEMOGLOBIN CONC (BEAKER) (test 34.1 GM/DL 32.3-36.5 lhqq=105) RED CELL DISTRIBUTION WIDTH (BEAKER) (test 15.0 % 11.6-14.4 fekr=378) PLATELET COUNT (BEAKER) (test kbwl=791) 170 K/CU MM 150-450 MEAN PLATELET VOLUME (BEAKER) (test bste=185) 10.1 fL 9.4-12.4 NUCLEATED RED BLOOD CELLS (BEAKER) (test 0 /100 WBC 0-0 ghpv=399) NEUTROPHILS RELATIVE PERCENT (BEAKER) (test 92 % mtpw=032) LYMPHOCYTES RELATIVE PERCENT (BEAKER) (test 4 % xwjo=866) MONOCYTES RELATIVE PERCENT (BEAKER) (test 2 % aobx=374) EOSINOPHILS RELATIVE PERCENT (BEAKER) (test 0 % yogg=552) BASOPHILS RELATIVE PERCENT (BEAKER) (test 0 % quue=909) NEUTROPHILS ABSOLUTE COUNT (BEAKER) (test 6.75 K/ L 1.78-5.38 zzru=738) LYMPHOCYTES ABSOLUTE COUNT (BEAKER) (test 0.27 K/ L 1.32-3.57 ufod=588) MONOCYTES ABSOLUTE COUNT (BEAKER) (test 0.15 K/ L 0.30-0.82 ppys=976) EOSINOPHILS ABSOLUTE COUNT (BEAKER) (test 0.00 K/ L 0.04-0.54 ysdf=263) BASOPHILS ABSOLUTE COUNT (BEAKER) (test 0.02 K/ L 0.01-0.08 agok=954) IMMATURE GRANULOCYTES-RELATIVE PERCENT (BEAKER) 2 % 0-1 (test oiyp=3306) [id number] 14:37:00 Test Item Value Reference Range Comments PROCALCITONIN (BEAKER) (test incu=5219) 0.08 ng/mL <0.05 SEPSIS RISK (ng/mL)Low: 0.05-0.50Intermediate: 0.51-2.00High: & gt;=2.01LACTIC ACID, [id number] 13:43:00 Test Item Value Reference Range Comments LACTATE BLOOD VENOUS (2) 2.4 mmol/L 0.5-2.2 Specimen slightly hemolyzed (BEAKER) (test pque=6670) TISSUE [id number] 13:24:00Surgical Pathology Report Case: [id number] Authorizing Provider: Jennifer Fraire MD Collected: 06/09/2018 1735 Ordering Location: [address] Received: 06/10/2018 0811 Cardiovascular Pathologist: Jennifer Hull MD Specimen: SoftTissue, Other, LEFT SUPRAGLOTTIC MASS LEFT SUPRAGLOTTIC MASS, LARYNGOSCOPIC BIOPSY: - ATYPICAL SQUAMOUS PROLIFERATION (SEE COMMENT) Signing Pathologist Direct Phone Line: [phone] These are superficial fragments with hyperplasia, keratosis and dysplasia. Note is made of thehistory of chemoradiation. Ulceration, inflammation, atypical stromal cells and necrosis seen, may be due to the effect of chemoradiation. Immunohistochemical studies for AE1/AE3 and p53 confirm that the atypical cells in the stroma are likely reactive stromal cells. No invasive carcinoma is seen. Thebiopsy may not be outside industrial sales representative of the entirelesion; Clinical correlation is recommended.40402; 37485; 97504Zfzyuuxfe mass Left subglottic massThe specimen is received in a fluidless container labeled with patient information and labeled "left supraglottic mass" consisting of four fragments of red soft tissue ranging from 0.1 to 0.4 cm, submitted entirely A1. CG/pl PERFORMEDThe interpretation of this case included the use of immunohistochemistry or special stains. p53 and AE1/WS4Nzrfwzwfyfbobshqridl technical testing was performed at [facility], Pathology Laboratory where it was [...] ESOPH, SWALLOW FUNCTION , WITH CINE OR [id number] 12:08:00Reason for exam:->silent aspiration evaluationFINAL REPORT Modified [...] MDReport Verified Date/Time: 06/17/2018 12:08:38 Reading Location: [address] Consult Reading Room [id number] 09:44:00 Test Item Value Reference Range Comments MAGNESIUM (BEAKER) (test ixgd=188) 1.9 mg/dL 1.6-2.6 [id number] 09:44:00 Test Item Value Reference Range Comments PHOSPHORUS (BEAKER) (test rszi=803) 2.9 mg/dL 2.3-4.7 RAD, CHEST, 1 VIEW, NON [id number] 08:16:00Reason for exam:->SOBShould this be performed at [...] MDReport Verified Date/Time: 06/17/2018 08:16:46 Reading Location: [facility] Radiology Reading Room BASIC METABOLIC [id number] 06:25:00 Test Item Value Reference Range Comments SODIUM (BEAKER) (test 134 meq/L 136-145 qiiu=331) POTASSIUM (BEAKER) (test 3.7 meq/L 3.5-5.1 rooc=094) CHLORIDE (BEAKER) (test 95 meq/L 98-107 yzks=336) CO2 (BEAKER) (test 31 meq/L 22-29 vlwp=242) BLOOD UREA NITROGEN 15 mg/dL 7-21 (BEAKER) (test cwez=200) CREATININE (BEAKER) (test 0.77 mg/dL 0.57-1.25 tdut=052) GLUCOSE RANDOM (BEAKER) 89 mg/dL 70-105 (test drie=252) CALCIUM (BEAKER) (test 8.9 mg/dL 8.4-10.2 nkzr=776) EGFR (BEAKER) (test 108 mL/min/1.73 sq m ESTIMATED GFR IS NOT bslx=8880) ACCURATE CREATININE CLEARANCE IN PREDICTING GLOMERULAR FILTRATION RATE. ESTIMATED GFR IS NOT APPLICABLE FOR DIALYSIS PATIENTS. VANCOMYCIN LEVEL, [id number] 06:25:00 Test Item Value Reference Range Comments VANCOMYCIN RANDOM (BEAKER) (test bkyk=245) 9.6 ug/mL Reference Range: No NormalsDraw 30 min prior to scheduled dose, HOLD if level & gt; 20 mcg/mL, informMD.RESPIRATORY PANEL [id number] 12:23:00 Test Item Value Reference Range Comments HUMAN METAPNEUMOVIRUS Not detected Not detected, (BEAKER) (test ymap=2864) Equivocal RHINOVIRUS (BEAKER) (test Not detected Not detected, ehwf=4015) Equivocal INFLUENZA A (BEAKER) (test Not detected Not detected, ierb=7805) Equivocal INFLUENZA A (NO SUBTYPE) Not detected, (test krwk=1237) Equivocal INFLUENZA A SUBTYPE H1 Not detected, (BEAKER) (test fopy=8533) Equivocal INFLUENZA A SUBTYPE H3 Not detected, (BEAKER) (test qziv=3902) Equivocal INFLUENZA A SUBTYPE H1-2009 Not detected, (BEAKER) (test okju=7034) Equivocal INFLUENZA B (BEAKER) (test Not detected Not detected, bpvg=7704) Equivocal RESPIRATORY SYNCYTIAL VIRUS Not detected Not detected, (BEAKER) (test yozh=4120) Equivocal PARAINFLUENZA VIRUS 1 Not detected Not detected, (BEAKER) (test ibmd=8642) Equivocal PARAINFLUENZA VIRUS 2 Not detected Not detected, (BEAKER) (test zjaq=0941) Equivocal PARAINFLUENZA VIRUS 3 Not detected Not detected, (BEAKER) (test axfn=3201) Equivocal PARAINFLUENZA VIRUS 4 Not detected Not detected, (BEAKER) (test qvol=8780) Equivocal ADENOVIRUS (BEAKER) (test Not detected Not detected, flzh=8229) Equivocal CORONAVIRUS 229E (BEAKER) Detected Not detected, Droplet isolation. (test dkja=2311) Equivocal Consider stopping antibiotics. CORONAVIRUS HKU1 (BEAKER) Not detected Not detected, (test cxze=8478) Equivocal CORONAVIRUS NL63 (BEAKER) Not detected Not detected, (test kylj=3571) Equivocal CORONAVIRUS OC43 (BEAKER) Not detected Not detected, (test udac=8795) Equivocal BORDETELLA PERTUSSIS (BEAKER) Not detected Not detected, (test pggz=6654) Equivocal CHLAMYDOPHILA PNEUMONIAE Not detected Not detected, (BEAKER) (test dcxg=7008) Equivocal MYCOPLASMA PNEUMONIAE Not detected Not detected, (BEAKER) (test zlej=1745) Equivocal Other viruses and bacteria not targeted [...] [facility] using the Sprout[employer] Respiratory Panel. It is FDA cleared and has been verified and approved by the [facility] Molecular Diagnostics Laboratory for clinical use on nasal swab specimens. It is not FDA-cleared for use on bronchial wash/lavage samples. However, for this sample type, validation was performed and test characteristics were determined and approved, by [facility] laboratory for clinical use under the Clinical Laboratory Improvement Amendments (CLIA) of 1988 requirements. Therefore, FDA clearance isnot required. This laboratory is CLIA-certified and [employer] [place] (CAP)-accredited to perform high complexity testing.CBC W/PLT COUNT & AUTO [id number] 11:27:00 Test Item Value Reference Range Comments WHITE BLOOD CELL COUNT (BEAKER) (test ziey=250) 10.5 K/ L 3.5-10.5 RED BLOOD CELL COUNT (BEAKER) (test bvru=730) 4.20 M/ L 4.63-6.08 HEMOGLOBIN (BEAKER) (test otub=222) 13.6 GM/DL 13.7-17.5 HEMATOCRIT (BEAKER) (test osop=094) 40.5 % 40.1-51.0 MEAN CORPUSCULAR VOLUME (BEAKER) (test mgfd=932) 96.4 fL 79.0-92.2 MEAN CORPUSCULAR HEMOGLOBIN (BEAKER) (test 32.4 pg 25.7-32.2 iepm=783) MEAN CORPUSCULAR HEMOGLOBIN CONC (BEAKER) (test 33.6 GM/DL 32.3-36.5 xyvp=884) RED CELL DISTRIBUTION WIDTH (BEAKER) (test 15.1 % 11.6-14.4 gejs=523) PLATELET COUNT (BEAKER) (test wzrh=680) 142 K/CU MM 150-450 MEAN PLATELET VOLUME (BEAKER) (test hlbn=086) 10.3 fL 9.4-12.4 NUCLEATED RED BLOOD CELLS (BEAKER) (test 0 /100 WBC 0-0 nncu=688) (CELLAVISION MANUAL DIFF)2018-06-16 11:27:00 Test Item Value Reference Range Comments NEUTROPHILS - REL (CELLAVISION)(BEAKER) (test 51 % giki=3904) LYMPHOCYTES - REL (CELLAVISION)(BEAKER) (test 1 % yehv=8112) MONOCYTES - REL (CELLAVISION)(BEAKER) (test 2 % puca=4165) MYELOCYTES - REL (CELLAVISION)(BEAKER) (test 1 % 0-0 hkhv=7190) PROMYELOCYTES - REL (CELLAVSION)(BEAKER) (test 1 % 0-0 qbjh=0903) BANDS - REL (CELLAVISION)(BEAKER) (test 44 % 0-10 boaq=2539) NEUTROPHILS - ABS (CELLAVISION)(BEAKER) (test 5.36 K/ul 1.78-5.38 eqay=2486) LYMPHOCYTES - ABS (CELLAVISION)(BEAKER) (test 0.11 K/ul 1.32-3.57 kcwb=9430) MONOCYTES - ABS (CELLAVISION)(BEAKER) (test 0.21 K/uL 0.30-0.82 ndic=6585) MYELOCYTES-ABS (CELLAVISION)(BEAKER) (test 0.11 K/uL 0.00-0.00 kiaj=4307) PROMYELOCYTES - ABS (CELLAVISION)(BEAKER) (test 0.11 K/uL 0.00-0.00 dihl=2527) BANDS - ABS (CELLAVISION)(BEAKER) (test 4.62 K/uL 0.00-0.80 wieo=4834) TOTAL COUNTED (BEAKER) (test brgw=4545) 100 MANUAL NRBC PER 100 CELLS (BEAKER) (test 1 /100 WBC 0-0 rtoo=1452) SMUDGE CELLS (BEAKER) (test wrbe=5901) Present GIANT PLATELETS (BEAKER) (test cjyi=064) Present POLYCHROMATOPHILLIC RBCS(BEAKER) (test zhzu=442) 1+ few ANISOCYTOSIS (BEAKER) (test lzql=801) 1+ few MICROCYTES (BEAKER) (test nxxa=247) 1+ few POIKILOCYTES (BEAKER) (test edsg=545) 1+ few ARTIFACT (CELLAVISION)(BEAKER) (test icjw=8125) Present PLATELET CONCENTRATION (CELLAVISION)(BEAKER) Adequate (test noni=1928) Received comment: User comments: Slide comments:CT, CHEST WITH IV CONTRAST- PE TEST [id number] 09:53:00Worsening hypoxia s/o diagnosis and excision of [...] MDReport Verified Date/Time: 06/16/2018 09:53:01 Reading Location: [facility] Diagnostic Imaging Reading Room - [place] [address] RAD, CHEST, 1 VIEW, NON [id number] 07:36:00Reason for exam:->recent pneumothorax, new trachShould [...] MDReport Verified Date/Time: 06/16/2018 07:36:27 Reading Location: [facility] Radiology Reading Room 07: 36 AMBASIC METABOLIC [id number] 05:45:00 Test Item Value Reference Range Comments SODIUM (BEAKER) (test 132 meq/L 136-145 klws=489) POTASSIUM (BEAKER) (test 3.9 meq/L 3.5-5.1 cyso=798) CHLORIDE (BEAKER) (test 92 meq/L 98-107 nism=157) CO2 (BEAKER) (test 27 meq/L 22-29 omad=367) BLOOD UREA NITROGEN 13 mg/dL 7-21 (BEAKER) (test krxh=936) CREATININE (BEAKER) (test 0.83 mg/dL 0.57-1.25 iqrs=184) GLUCOSE RANDOM (BEAKER) 129 mg/dL 70-105 (test jvwy=862) CALCIUM (BEAKER) (test 9.5 mg/dL 8.4-10.2 auqj=506) EGFR (BEAKER) (test 99 mL/min/1.73 sq m ESTIMATED GFR IS NOT krox=2352) ACCURATE CREATININE CLEARANCE IN PREDICTING GLOMERULAR FILTRATION RATE. ESTIMATED GFR IS NOT APPLICABLE FOR DIALYSIS PATIENTS. [id number] 18:12:00 Test Item Value Reference Range Comments MAGNESIUM (BEAKER) (test 2.0 mg/dL 1.6-2.6 Specimen slightly hemolyzed lgbb=295) BASIC METABOLIC [id number] 18:12:00 Test Item Value Reference Range Comments SODIUM (BEAKER) (test 130 meq/L 136-145 vbkc=648) POTASSIUM (BEAKER) (test 3.7 meq/L 3.5-5.1 Specimen slightly teue=608) hemolyzed CHLORIDE (BEAKER) (test 91 meq/L 98-107 cmse=039) CO2 (BEAKER) (test 27 meq/L 22-29 krew=895) BLOOD UREA NITROGEN 14 mg/dL 7-21 (BEAKER) (test pdte=408) CREATININE (BEAKER) (test 0.78 mg/dL 0.57-1.25 Specimen slightly qynz=108) hemolyzed GLUCOSE RANDOM (BEAKER) 85 mg/dL 70-105 (test qyah=132) CALCIUM (BEAKER) (test 8.9 mg/dL 8.4-10.2 zdru=290) EGFR (BEAKER) (test 107 mL/min/1.73 sq m ESTIMATED GFR IS NOT jiqb=4676) ACCURATE CREATININE CLEARANCE IN PREDICTING GLOMERULAR FILTRATION RATE. ESTIMATED GFR IS NOT APPLICABLE FOR DIALYSIS PATIENTS. RAD, CHEST, 1 VIEW, NON [id number] 13:18:00Reason for exam:->recent pneumothorax, new trachShould this [...] Additional findings: None. Signed: JR Humberto, [facility] Verified Date/Time: 06/15/2018 13:18:45 Reading Location: [address] Neuro Reading Room BLOOD GAS, [id number] 11:41:00 Test Item Value Reference Range Comments PH ARTERIAL (BEAKER) (test tdvp=157) 7.50 7.35-7.45 PCO2 ARTERIAL (BEAKER) (test qkzw=268) 40 mmHg 35-45 PO2 ARTERIAL (BEAKER) (test cdwk=073) 335 mmHg 80-90 O2 SATURATION ARTERIAL (BEAKER) (test pgev=485) 99.8 % 96.0-97.0 HCO3 ARTERIAL (BEAKER) (test buot=577) 29 mmol/L 21-29 BASE EXCESS ARTERIAL (BEAKER) (test emoc=445) 6.5 mmol/L -2.0-3.0 PATIENT TEMPERATURE (BEAKER) (test mqli=9950) 39.3 C FIO2 (BEAKER) (test sonr=2883) 100.0 % Obtain one hour post initaition of vent support \\[id number]\\[id number] [id number] 09: 49:00 Test Item Value Reference Range Comments TROPONIN I (BEAKER) (test xyev=874) < ng/mL 0.00-0.03 Troponin I (TnI) levels [...] Range Comments B-TYPE NATRIURETIC PEPTIDE (BEAKER) (test mimx=599) 66 pg/mL 0-100 [id number] 09:29:00 Test Item Value Reference Range Comments D-DIMER QUANTITATIVE (BEAKER) (test upod=690) 1.59 MG/L FEU <0.50 Intended Use: The D-Dimer Assay can be used to aid in the diagnosis of Deep Vein Thrombosis (DVT) and Pulmonary Embolism Disease (PED).In patients with low pre-test probability, various studies concerning STA Liatest D-dimer test have reported that with a cutoff value of 0.50 MG/L FEU, the Negative Predictive Value (NPV) regarding the exclusion of thrombosis is within 95-100% range.[id number] 09:12:00 Test Item Value Reference Range Comments FIBRINOGEN LEVEL (BEAKER) (test ammt=506) 621 mg/dl 225-434 [id number] 09:10:00 Test Item Value Reference Range Comments PHOSPHORUS (BEAKER) (test qrox=267) 2.8 mg/dL 2.3-4.7 [id number] 09:10:00 Test Item Value Reference Range Comments MAGNESIUM (BEAKER) (test jule=361) 1.9 mg/dL 1.6-2.6 COMPREHENSIVE METABOLIC [id number] 09:10:00 Test Item Value Reference Range Comments TOTAL PROTEIN (BEAKER) 5.9 gm/dL 6.0-8.3 (test tdvy=777) ALBUMIN (BEAKER) (test 3.3 g/dL 3.5-5.0 dejp=5616) ALKALINE PHOSPHATASE 73 U/L 40-150 (BEAKER) (test tker=549) BILIRUBIN TOTAL (BEAKER) 1.3 mg/dL 0.2-1.2 (test bxfr=663) SODIUM (BEAKER) (test 127 meq/L 136-145 xpmk=426) POTASSIUM (BEAKER) (test 3.8 meq/L 3.5-5.1 zgww=818) CHLORIDE (BEAKER) (test 89 meq/L 98-107 ndtg=634) CO2 (BEAKER) (test 28 meq/L 22-29 ycsp=111) BLOOD UREA NITROGEN 14 mg/dL 7-21 (BEAKER) (test clzj=417) CREATININE (BEAKER) (test 0.78 mg/dL 0.57-1.25 sxhp=743) GLUCOSE RANDOM (BEAKER) 87 mg/dL 70-105 (test knws=811) CALCIUM (BEAKER) (test 8.8 mg/dL 8.4-10.2 fsjr=868) AST (SGOT) (BEAKER) (test 23 U/L 5-34 pgag=749) ALT (SGPT) (BEAKER) (test 26 U/L 6-55 nsqs=885) EGFR (BEAKER) (test 107 mL/min/1.73 sq ESTIMATED GFR IS NOT dfjn=7430) m ACCURATE CREATININE CLEARANCE IN PREDICTING GLOMERULAR FILTRATION RATE. ESTIMATED GFR IS NOT APPLICABLE FOR DIALYSIS PATIENTS. [id number] 09:01:00 Test Item Value Reference Range Comments PROTIME (BEAKER) (test axca=232) 15.2 seconds 11.7-14.7 INR (BEAKER) (test btud=901) 1.2 <=5.9 PARTIAL THROMBOPLASTIN TIME (BEAKER) (test 31.6 seconds 22.5-36.0 snlu=109) RECOMMENDED COUMADIN/WARFARIN INR THERAPY RANGESSTANDARD DOSE: 2.0 - 3.0 Includes: PROPHYLAXIS forvenous thrombosis, systemic embolization; TREATMENT for venous thrombosis and/or pulmonary embolus.HIGH RISK: Target INR is 2.5-3.5 for patients with mechanical heart valves.LACTIC ACID, [id number] 08:51: 00 Test Item Value Reference Range Comments LACTATE BLOOD ARTERIAL (2) 0.8 mmol/L 0.5-2.2 Specimen slightly hemolyzed (BEAKER) (test qdbj=2239) BLOOD GAS, [id number] 08:40:00 Test Item Value Reference Range Comments PH ARTERIAL (BEAKER) (test zhid=611) 7.51 7.35-7.45 PCO2 ARTERIAL (BEAKER) (test cxet=334) 40 mmHg 35-45 PO2 ARTERIAL (BEAKER) (test kzcr=756) 58 mmHg 80-90 O2 SATURATION ARTERIAL (BEAKER) (test qbzx=912) 90.0 % 96.0-97.0 HCO3 ARTERIAL (BEAKER) (test fpbd=393) 31 mmol/L 21-29 BASE EXCESS ARTERIAL (BEAKER) (test hngf=810) 8.3 mmol/L -2.0-3.0 PATIENT TEMPERATURE (BEAKER) (test gmtq=5056) 39.1 C FIO2 (BEAKER) (test wszw=8777) 80.0 % [id number] 08:00:00 Test Item Value Reference Range Comments MAGNESIUM (BEAKER) (test okgr=483) 1.8 mg/dL 1.6-2.6 Add onCBC W/PLT COUNT & AUTO [id number] 06:45:00 Test Item Value Reference Range Comments WHITE BLOOD CELL COUNT (BEAKER) (test lqhh=126) 10.2 K/ L 3.5-10.5 RED BLOOD CELL COUNT (BEAKER) (test vhtu=482) 4.12 M/ L 4.63-6.08 HEMOGLOBIN (BEAKER) (test oway=212) 13.2 GM/DL 13.7-17.5 HEMATOCRIT (BEAKER) (test wfyj=981) 40.8 % 40.1-51.0 MEAN CORPUSCULAR VOLUME (BEAKER) (test zoaq=551) 99.0 fL 79.0-92.2 MEAN CORPUSCULAR HEMOGLOBIN (BEAKER) (test 32.0 pg 25.7-32.2 jpxm=977) MEAN CORPUSCULAR HEMOGLOBIN CONC (BEAKER) (test 32.4 GM/DL 32.3-36.5 vhzu=908) RED CELL DISTRIBUTION WIDTH (BEAKER) (test 15.2 % 11.6-14.4 brdy=073) PLATELET COUNT (BEAKER) (test zenk=917) 146 K/CU MM 150-450 MEAN PLATELET VOLUME (BEAKER) (test ozww=914) 9.9 fL 9.4-12.4 NUCLEATED RED BLOOD CELLS (BEAKER) (test 0 /100 WBC 0-0 gcsa=503) NEUTROPHILS RELATIVE PERCENT (BEAKER) (test 92 % qtzr=044) LYMPHOCYTES RELATIVE PERCENT (BEAKER) (test 3 % meva=654) MONOCYTES RELATIVE PERCENT (BEAKER) (test 2 % mpwu=801) EOSINOPHILS RELATIVE PERCENT (BEAKER) (test 0 % ifpz=227) BASOPHILS RELATIVE PERCENT (BEAKER) (test 0 % otau=015) NEUTROPHILS ABSOLUTE COUNT (BEAKER) (test 9.38 K/ L 1.78-5.38 vqhn=718) LYMPHOCYTES ABSOLUTE COUNT (BEAKER) (test 0.30 K/ L 1.32-3.57 mzgr=121) MONOCYTES ABSOLUTE COUNT (BEAKER) (test 0.23 K/ L 0.30-0.82 ecyg=747) EOSINOPHILS ABSOLUTE COUNT (BEAKER) (test 0.00 K/ L 0.04-0.54 svwh=577) BASOPHILS ABSOLUTE COUNT (BEAKER) (test 0.03 K/ L 0.01-0.08 fsxd=871) IMMATURE GRANULOCYTES-RELATIVE PERCENT (BEAKER) 3 % 0-1 (test opng=3183) BASIC METABOLIC [id number] 06:35:00 Test Item Value Reference Range Comments SODIUM (BEAKER) (test 127 meq/L 136-145 iywq=898) POTASSIUM (BEAKER) (test 3.8 meq/L 3.5-5.1 egzv=854) CHLORIDE (BEAKER) (test 91 meq/L 98-107 wgtc=483) CO2 (BEAKER) (test 27 meq/L 22-29 vrcp=077) BLOOD UREA NITROGEN 12 mg/dL 7-21 (BEAKER) (test lssm=296) CREATININE (BEAKER) (test 0.75 mg/dL 0.57-1.25 saak=722) GLUCOSE RANDOM (BEAKER) 88 mg/dL 70-105 (test ykmv=630) CALCIUM (BEAKER) (test 8.6 mg/dL 8.4-10.2 vxbx=372) EGFR (BEAKER) (test 112 mL/min/1.73 sq m ESTIMATED GFR IS NOT mdnp=6973) ACCURATE CREATININE CLEARANCE IN PREDICTING GLOMERULAR FILTRATION RATE. ESTIMATED GFR IS NOT APPLICABLE FOR DIALYSIS PATIENTS. RAD, CHEST, 1 VIEW, NON [id number] 05:10:00Reason for exam:->sob, tachypneaShould this be performed [...] [place] Verified Date/Time: 06/15/2018 05:10:33 Reading Location: [address] Reading Room POCT-LACTIC ACID, [id number] 04:30:00 Test Item Value Reference Range Comments POC-LACTIC ACID, VENOUS 1.1 mmol/L 0.9-1.[address] [facility] [address] [facility] (BEAKER) (test ngco=0887) [facility] [address] URINALYSIS W/ REFLEX URINE [id number] 20:03:00 Test Item Value Reference Range Comments COLOR (BEAKER) (test ygax=329) Light Yellow CLARITY (BEAKER) (test wohy=898) Hazy SPECIFIC GRAVITY UA (BEAKER) (test joea=049) 1.014 1.001-1.035 PH UA (BEAKER) (test dwrj=401) 7.5 5.0-8.0 PROTEIN UA (BEAKER) (test hyiv=195) Negative Negative GLUCOSE UA (BEAKER) (test qfrl=028) Negative Negative KETONES UA (BEAKER) (test gmiz=263) Negative Negative BILIRUBIN UA (BEAKER) (test knlz=155) Negative Negative BLOOD UA (BEAKER) (test jggi=194) Negative Negative NITRITE UA (BEAKER) (test svkk=746) Negative Negative LEUKOCYTE ESTERASE UA (BEAKER) (test yqzg=475) Negative Negative UROBILINOGEN UA (BEAKER) (test caob=357) 0.2 mg/dL 0.2-1.0 RBC UA (BEAKER) (test jdhs=759) 0 /HPF WBC UA (BEAKER) (test lheo=247) 0 /HPF BACTERIA (BEAKER) (test esqd=835) Few MUCUS (BEAKER) (test nfnh=4256) Rare HYALINE CASTS (BEAKER) (test nljt=276) 3 /LPF SOURCE(BEAKER) (test ilcx=1940) RAD, CHEST, 1 VIEW, NON [id number] 19:10:00Reason for exam:->SUSUPECTED INFECTIONShould this be performed [...] Verified Date/Time: 06/14/2018 19:10: 10 Reading Location: [address] Reading Room CBC W/PLT COUNT & AUTO [id number] 04:36:00 Test Item Value Reference Range Comments WHITE BLOOD CELL COUNT (BEAKER) (test wxws=382) 11.4 K/ L 3.5-10.5 RED BLOOD CELL COUNT (BEAKER) (test ngme=240) 4.37 M/ L 4.63-6.08 HEMOGLOBIN (BEAKER) (test ytak=330) 14.1 GM/DL 13.7-17.5 HEMATOCRIT (BEAKER) (test rnwh=748) 44.0 % 40.1-51.0 MEAN CORPUSCULAR VOLUME (BEAKER) (test hqdk=810) 100.7 fL 79.0-92.2 MEAN CORPUSCULAR HEMOGLOBIN (BEAKER) (test 32.3 pg 25.7-32.2 apfu=702) MEAN CORPUSCULAR HEMOGLOBIN CONC (BEAKER) (test 32.0 GM/DL 32.3-36.5 rjox=788) RED CELL DISTRIBUTION WIDTH (BEAKER) (test 14.4 % 11.6-14.4 nhuu=172) PLATELET COUNT (BEAKER) (test rzau=039) 188 K/CU MM 150-450 MEAN PLATELET VOLUME (BEAKER) (test nqod=396) 10.7 fL 9.4-12.4 NUCLEATED RED BLOOD CELLS (BEAKER) (test 0 /100 WBC 0-0 cxov=656) NEUTROPHILS RELATIVE PERCENT (BEAKER) (test 95 % bpxg=437) LYMPHOCYTES RELATIVE PERCENT (BEAKER) (test 1 % nkqj=202) MONOCYTES RELATIVE PERCENT (BEAKER) (test 2 % rfvi=625) EOSINOPHILS RELATIVE PERCENT (BEAKER) (test 0 % zcbe=853) BASOPHILS RELATIVE PERCENT (BEAKER) (test 0 % fjlc=397) NEUTROPHILS ABSOLUTE COUNT (BEAKER) (test 10.81 K/ L 1.78-5.38 shej=431) LYMPHOCYTES ABSOLUTE COUNT (BEAKER) (test 0.16 K/ L 1.32-3.57 amec=976) MONOCYTES ABSOLUTE COUNT (BEAKER) (test 0.26 K/ L 0.30-0.82 pltb=575) EOSINOPHILS ABSOLUTE COUNT (BEAKER) (test 0.00 K/ L 0.04-0.54 tjku=880) BASOPHILS ABSOLUTE COUNT (BEAKER) (test 0.03 K/ L 0.01-0.08 ypnx=529) IMMATURE GRANULOCYTES-RELATIVE PERCENT (BEAKER) 2 % 0-1 (test gdgj=3978) RAD, CHEST, 1 VIEW, NON [id number] 04:13:00Reason for exam:->recent pneumothorax, new trachShould this [...] Verified Date/ Time: 06/14/2018 04:13:50 Reading Location: [address] Transitional Reading Room BLOOD GAS, [id number] 01:01:00 Test Item Value Reference Range Comments PH ARTERIAL (BEAKER) (test fenp=622) 7.45 7.35-7.45 PCO2 ARTERIAL (BEAKER) (test blyx=893) 41 mmHg 35-45 PO2 ARTERIAL (BEAKER) (test hmhw=062) 109 mmHg 80-90 O2 SATURATION ARTERIAL (BEAKER) (test hnce=470) 98.2 % 96.0-97.0 HCO3 ARTERIAL (BEAKER) (test wuqd=722) 28 mmol/L 21-29 BASE EXCESS ARTERIAL (BEAKER) (test lbhb=712) 3.4 mmol/L -2.0-3.0 PATIENT TEMPERATURE (BEAKER) (test lvbs=4720) 36.7 C FIO2 (BEAKER) (test rfke=7335) 40.0 % POCT-GLUCOSE [id number] 05:32:00 Test Item Value Reference Range Comments POC-GLUCOSE METER (BEAKER) 92 mg/dL 70-110 TESTED AT [address] (test cyzi=9539) [facility] [address] RAD, CHEST, 1 VIEW, NON [id number] 05:03:00Reason for exam:->evaluate for pneumo r/t CTShould [...] Verified Date/ Time: 06/13/2018 05:03:31 Reading Location: [facility] Transitional Reading Room [id number] 04:22:00 Test Item Value Reference Range Comments PARTIAL THROMBOPLASTIN TIME (BEAKER) (test 27.4 seconds 22.5-36.0 afst=375) PROTHROMBIN [id number] 04:21:00 Test Item Value Reference Range Comments PROTIME (BEAKER) (test yedg=904) 13.8 seconds 11.7-14.7 INR (BEAKER) (test oksh=099) 1.1 <=5.9 RECOMMENDED COUMADIN/WARFARIN INR THERAPY RANGESSTANDARD DOSE: 2.0 - 3.0 Includes: PROPHYLAXIS forvenous thrombosis, systemic embolization; TREATMENT for venous thrombosis and/or pulmonary embolus.HIGH RISK: Target INR is 2.5-3.5 for patients with mechanical heart valves.[id number] 04:20:00 Test Item Value Reference Range Comments PHOSPHORUS (BEAKER) (test afma=391) 3.1 mg/dL 2.3-4.7 [id number] 04:20:00 Test Item Value Reference Range Comments MAGNESIUM (BEAKER) (test ijsr=523) 2.0 mg/dL 1.6-2.6 BASIC METABOLIC [id number] 04:20:00 Test Item Value Reference Range Comments SODIUM (BEAKER) (test 140 meq/L 136-145 htpa=334) POTASSIUM (BEAKER) (test 3.7 meq/L 3.5-5.1 tvvd=107) CHLORIDE (BEAKER) (test 101 meq/L 98-107 chxm=788) CO2 (BEAKER) (test 30 meq/L 22-29 kxsj=920) BLOOD UREA NITROGEN 13 mg/dL 7-21 (BEAKER) (test wphz=799) CREATININE (BEAKER) (test 0.74 mg/dL 0.57-1.25 infc=757) GLUCOSE RANDOM (BEAKER) 97 mg/dL 70-105 (test zueq=208) CALCIUM (BEAKER) (test 9.2 mg/dL 8.4-10.2 lyvy=909) EGFR (BEAKER) (test 113 mL/min/1.73 sq m ESTIMATED GFR IS NOT oeur=4666) ACCURATE CREATININE CLEARANCE IN PREDICTING GLOMERULAR FILTRATION RATE. ESTIMATED GFR IS NOT APPLICABLE FOR DIALYSIS PATIENTS. CBC W/PLT COUNT & AUTO [id number] 04:14:00 Test Item Value Reference Range Comments WHITE BLOOD CELL COUNT (BEAKER) (test kene=434) 11.6 K/ L 3.5-10.5 RED BLOOD CELL COUNT (BEAKER) (test efki=341) 4.30 M/ L 4.63-6.08 HEMOGLOBIN (BEAKER) (test bwtd=822) 13.9 GM/DL 13.7-17.5 HEMATOCRIT (BEAKER) (test octe=245) 43.3 % 40.1-51.0 MEAN CORPUSCULAR VOLUME (BEAKER) (test taoq=720) 100.7 fL 79.0-92.2 MEAN CORPUSCULAR HEMOGLOBIN (BEAKER) (test 32.3 pg 25.7-32.2 nwfd=317) MEAN CORPUSCULAR HEMOGLOBIN CONC (BEAKER) (test 32.1 GM/DL 32.3-36.5 eqjt=754) RED CELL DISTRIBUTION WIDTH (BEAKER) (test 14.1 % 11.6-14.4 xyfl=973) PLATELET COUNT (BEAKER) (test sdcg=354) 182 K/CU MM 150-450 MEAN PLATELET VOLUME (BEAKER) (test iklz=615) 10.7 fL 9.4-12.4 NUCLEATED RED BLOOD CELLS (BEAKER) (test 0 /100 WBC 0-0 gxet=191) NEUTROPHILS RELATIVE PERCENT (BEAKER) (test 89 % ciou=237) LYMPHOCYTES RELATIVE PERCENT (BEAKER) (test 3 % ichx=729) MONOCYTES RELATIVE PERCENT (BEAKER) (test 6 % dhmb=076) EOSINOPHILS RELATIVE PERCENT (BEAKER) (test 0 % qhiz=873) BASOPHILS RELATIVE PERCENT (BEAKER) (test 0 % vvfh=118) NEUTROPHILS ABSOLUTE COUNT (BEAKER) (test 10.26 K/ L 1.78-5.38 emlf=701) LYMPHOCYTES ABSOLUTE COUNT (BEAKER) (test 0.39 K/ L 1.32-3.57 senk=787) MONOCYTES ABSOLUTE COUNT (BEAKER) (test 0.74 K/ L 0.30-0.82 zshk=367) EOSINOPHILS ABSOLUTE COUNT (BEAKER) (test 0.02 K/ L 0.04-0.54 jhqf=377) BASOPHILS ABSOLUTE COUNT (BEAKER) (test 0.03 K/ L 0.01-0.08 vrmg=656) IMMATURE GRANULOCYTES-RELATIVE PERCENT (BEAKER) 1 % 0-1 (test pygp=4555) POCT-GLUCOSE [id number] 00:14:00 Test Item Value Reference Range Comments POC-GLUCOSE METER (BEAKER) 126 mg/dL 70-110 TESTED AT [address] (test leqi=5123) [facility] [id number] RAD, CHEST, 1 VIEW, NON [id number] 12:29:00Reason for exam:->s/p[ L thoracocentesisFINAL REPORT CLINICAL HISTORY: s/p[ L thoracocentesis TECHNIQUE: 1 view of the chest. COMPARISON: 06/12/2018 IMPRESSION: A tracheostomy tube is again seen. There is no pneumothorax. Bibasilar atelectasis is again noted. There is no significant appearing pleural fluid. The cardiomediastinal silhouette is magnified by technique. Signed: Jacqueline Hilliard MDReport Verified Date/Time:06/12/2018 12:29:27 Reading Location: [facility] C0[facility] Consult Reading Room POCT-GLUCOSE [id number] 12:10:00 Test Item Value Reference Range Comments POC-GLUCOSE METER (BEAKER) 194 mg/dL 70-110 TESTED AT [address] (test vcyt=9490) [place] [address] CT, CHEST, WITH [id number] 10:26:00Premedicated for contrast allergy. With general anesthesia [...] Man Verified Date/Time: 06/12/2018 10:26:26 Reading Location: [facility] Diagnostic Imaging Reading Room - [place] [address], SOFT TISSUE NECK, [id number] 09:53: 00Premedicated for contrast allergy. With gneral [...] Date/Time: 06/12/2018 09:53:06 Reading Location: [facility] B1 C013V Neuro Reading Room [id number] 06:00:00 Test Item Value Reference Range Comments PHOSPHORUS (BEAKER) (test oskd=159) 2.9 mg/dL 2.3-4.7 [id number] 06:00:00 Test Item Value Reference Range Comments MAGNESIUM (BEAKER) (test fcoa=531) 2.1 mg/dL 1.6-2.6 BASIC METABOLIC [id number] 06:00:00 Test Item Value Reference Range Comments SODIUM (BEAKER) (test 139 meq/L 136-145 mwsv=453) POTASSIUM (BEAKER) (test 3.9 meq/L 3.5-5.1 hohs=237) CHLORIDE (BEAKER) (test 104 meq/L 98-107 ljop=711) CO2 (BEAKER) (test 26 meq/L 22-29 bnga=970) BLOOD UREA NITROGEN 13 mg/dL 7-21 (BEAKER) (test kwgz=862) CREATININE (BEAKER) (test 0.65 mg/dL 0.57-1.25 mfej=797) GLUCOSE RANDOM (BEAKER) 109 mg/dL 70-105 (test ggol=645) CALCIUM (BEAKER) (test 9.5 mg/dL 8.4-10.2 gkhb=556) EGFR (BEAKER) (test 132 mL/min/1.73 sq m ESTIMATED GFR IS NOT iwgy=9981) ACCURATE CREATININE CLEARANCE IN PREDICTING GLOMERULAR FILTRATION RATE. ESTIMATED GFR IS NOT APPLICABLE FOR DIALYSIS PATIENTS. POCT-GLUCOSE [id number] 05:44:00 Test Item Value Reference Range Comments POC-GLUCOSE METER (BEAKER) 157 mg/dL 70-[address] [facility] [address] [facility] (test swoh=5459) [facility] [address] CBC W/PLT COUNT & AUTO [id number] 04:29:00 Test Item Value Reference Range Comments WHITE BLOOD CELL COUNT (BEAKER) (test ylzb=185) 17.3 K/ L 3.5-10.5 RED BLOOD CELL COUNT (BEAKER) (test pard=696) 4.42 M/ L 4.63-6.08 HEMOGLOBIN (BEAKER) (test jinb=195) 14.4 GM/DL 13.7-17.5 HEMATOCRIT (BEAKER) (test hggb=051) 43.7 % 40.1-51.0 MEAN CORPUSCULAR VOLUME (BEAKER) (test irtd=090) 98.9 fL 79.0-92.2 MEAN CORPUSCULAR HEMOGLOBIN (BEAKER) (test 32.6 pg 25.7-32.2 zuxd=330) MEAN CORPUSCULAR HEMOGLOBIN CONC (BEAKER) (test 33.0 GM/DL 32.3-36.5 wpjj=607) RED CELL DISTRIBUTION WIDTH (BEAKER) (test 14.2 % 11.6-14.4 qidj=744) PLATELET COUNT (BEAKER) (test qecg=714) 180 K/CU MM 150-450 MEAN PLATELET VOLUME (BEAKER) (test dldu=679) 10.9 fL 9.4-12.4 NUCLEATED RED BLOOD CELLS (BEAKER) (test 0 /100 WBC 0-0 jzne=457) NEUTROPHILS RELATIVE PERCENT (BEAKER) (test 94 % ypvn=527) LYMPHOCYTES RELATIVE PERCENT (BEAKER) (test 2 % hccl=816) MONOCYTES RELATIVE PERCENT (BEAKER) (test 3 % pzap=054) EOSINOPHILS RELATIVE PERCENT (BEAKER) (test 0 % gkid=018) BASOPHILS RELATIVE PERCENT (BEAKER) (test 0 % ngsr=417) NEUTROPHILS ABSOLUTE COUNT (BEAKER) (test 16.28 K/ L 1.78-5.38 hxtg=374) LYMPHOCYTES ABSOLUTE COUNT (BEAKER) (test 0.28 K/ L 1.32-3.57 pdti=594) MONOCYTES ABSOLUTE COUNT (BEAKER) (test 0.55 K/ L 0.30-0.82 qtkn=494) EOSINOPHILS ABSOLUTE COUNT (BEAKER) (test 0.00 K/ L 0.04-0.54 ukpo=792) BASOPHILS ABSOLUTE COUNT (BEAKER) (test 0.02 K/ L 0.01-0.08 kiol=342) IMMATURE GRANULOCYTES-RELATIVE PERCENT (BEAKER) 1 % 0-1 (test luqa=1538) RAD, CHEST, 1 VIEW, NON [id number] 04:26:00Reason for exam:->evaluate for pneumo r/t CTShould this be performed at the bedside?->YesFINAL REPORT CLINICAL INDICATION: Support lines. Comparison: 2018 The cardiomediastinal contours are stable. The lung volumes remain low. The lateral pulmonary opacities are similar to previous within variation of acquisition technique. There is no pneumothorax. A tracheostomy tube is stable. Signed: Jakob Garcia MDReport Verified Date/Time: 06/12/2018 04:26:44 Reading Location: [address] Reading Room Electronically signed by: JAKOB GARCIA M.D. on06/12/2018 04:26 [id number] 04:02:00 Test Item Value Reference Range Comments PARTIAL THROMBOPLASTIN TIME (BEAKER) (test 29.1 seconds 22.5-36.0 sgqi=450) PROTHROMBIN TIME/[id number] 04:01:00 Test Item Value Reference Range Comments PROTIME (BEAKER) (test wicz=874) 13.4 seconds 11.7-14.7 INR (BEAKER) (test afjf=991) 1.0 <=5.9 RECOMMENDED COUMADIN/WARFARIN INR THERAPY RANGESSTANDARD DOSE: 2.0 - 3.0 Includes: PROPHYLAXIS forvenous thrombosis, systemic embolization; TREATMENT for venous thrombosis and/or pulmonary embolus.HIGH RISK: Target INR is 2.5-3.5 for patients with mechanical heart valves.POCT-GLUCOSE [id number] 00:10:00 Test Item Value Reference Range Comments POC-GLUCOSE METER (BEAKER) 225 mg/dL 70-[address] [facility] [address] [facility] (test ucgy=1030) [facility] [address] POCT-GLUCOSE [id number] 06:14:00 Test Item Value Reference Range Comments POC-GLUCOSE METER (BEAKER) 129 mg/dL 70-[address] [facility] [address] [facility] (test kocs=6347) [facility] [address] TSH/FREE T4 IF [id number] 04:46:00 Test Item Value Reference Range Comments THYROID STIMULATING HORMONE (BEAKER) (test 0.87 uIU/mL 0.35-4.94 ngoc=206) CBC W/PLT COUNT & AUTO [id number] 04:30:00 Test Item Value Reference Range Comments WHITE BLOOD CELL COUNT (BEAKER) (test msoe=458) 16.2 K/ L 3.5-10.5 RED BLOOD CELL COUNT (BEAKER) (test gqyt=955) 4.01 M/ L 4.63-6.08 HEMOGLOBIN (BEAKER) (test dlcw=008) 12.9 GM/DL 13.7-17.5 HEMATOCRIT (BEAKER) (test ynlq=193) 41.0 % 40.1-51.0 MEAN CORPUSCULAR VOLUME (BEAKER) (test oxdd=174) 102.2 fL 79.0-92.2 MEAN CORPUSCULAR HEMOGLOBIN (BEAKER) (test 32.2 pg 25.7-32.2 aunj=874) MEAN CORPUSCULAR HEMOGLOBIN CONC (BEAKER) (test 31.5 GM/DL 32.3-36.5 xrrh=695) RED CELL DISTRIBUTION WIDTH (BEAKER) (test 14.5 % 11.6-14.4 vldy=018) PLATELET COUNT (BEAKER) (test cbmg=146) 176 K/CU MM 150-450 MEAN PLATELET VOLUME (BEAKER) (test lygo=633) 10.9 fL 9.4-12.4 NUCLEATED RED BLOOD CELLS (BEAKER) (test 0 /100 WBC 0-0 gabb=585) NEUTROPHILS RELATIVE PERCENT (BEAKER) (test 93 % qhdo=932) LYMPHOCYTES RELATIVE PERCENT (BEAKER) (test 2 % wwvg=942) MONOCYTES RELATIVE PERCENT (BEAKER) (test 4 % srwl=986) EOSINOPHILS RELATIVE PERCENT (BEAKER) (test 0 % vgbm=172) BASOPHILS RELATIVE PERCENT (BEAKER) (test 0 % nlgy=962) NEUTROPHILS ABSOLUTE COUNT (BEAKER) (test 15.09 K/ L 1.78-5.38 akzd=308) LYMPHOCYTES ABSOLUTE COUNT (BEAKER) (test 0.28 K/ L 1.32-3.57 nmgw=336) MONOCYTES ABSOLUTE COUNT (BEAKER) (test 0.60 K/ L 0.30-0.82 blxk=174) EOSINOPHILS ABSOLUTE COUNT (BEAKER) (test 0.00 K/ L 0.04-0.54 lhof=472) BASOPHILS ABSOLUTE COUNT (BEAKER) (test 0.02 K/ L 0.01-0.08 itar=664) IMMATURE GRANULOCYTES-RELATIVE PERCENT (BEAKER) 1 % 0-1 (test sxan=0358) [id number] 04:26:00 Test Item Value Reference Range Comments PREALBUMIN (BEAKER) (test akpe=316) 25 mg/dL 14-45 [id number] 04:24:00 Test Item Value Reference Range Comments PHOSPHORUS (BEAKER) (test tlbx=103) 3.5 mg/dL 2.3-4.7 [id number] 04:24:00 Test Item Value Reference Range Comments MAGNESIUM (BEAKER) (test trbv=057) 2.0 mg/dL 1.6-2.6 BASIC METABOLIC [id number] 04:24:00 Test Item Value Reference Range Comments SODIUM (BEAKER) (test 140 meq/L 136-145 ncua=100) POTASSIUM (BEAKER) (test 3.9 meq/L 3.5-5.1 uqbs=463) CHLORIDE (BEAKER) (test 105 meq/L 98-107 vnqi=524) CO2 (BEAKER) (test 26 meq/L 22-29 ylbg=578) BLOOD UREA NITROGEN 11 mg/dL 7-21 (BEAKER) (test ssfr=469) CREATININE (BEAKER) (test 0.67 mg/dL 0.57-1.25 iayd=498) GLUCOSE RANDOM (BEAKER) 129 mg/dL 70-105 (test awoj=948) CALCIUM (BEAKER) (test 9.2 mg/dL 8.4-10.2 irku=284) EGFR (BEAKER) (test 127 mL/min/1.73 sq m ESTIMATED GFR IS NOT wtrz=4201) ACCURATE CREATININE CLEARANCE IN PREDICTING GLOMERULAR FILTRATION RATE. ESTIMATED GFR IS NOT APPLICABLE FOR DIALYSIS PATIENTS. PROTHROMBIN [id number] 04:19:00 Test Item Value Reference Range Comments PROTIME (BEAKER) (test gory=929) 14.5 seconds 11.7-14.7 INR (BEAKER) (test jhes=690) 1.1 <=5.9 RECOMMENDED COUMADIN/WARFARIN INR THERAPY RANGESSTANDARD DOSE: 2.0 - 3.0 Includes: PROPHYLAXIS forvenous thrombosis, systemic embolization; TREATMENT for venous thrombosis and/or pulmonary embolus.HIGH RISK: Target INR is 2.5-3.5 for patients with mechanical heart valves.[id number] 04:19:00 Test Item Value Reference Range Comments PARTIAL THROMBOPLASTIN TIME (BEAKER) (test 29.7 seconds 22.5-36.0 lxjx=052) POCT-GLUCOSE [id number] 01:04:00 Test Item Value Reference Range Comments POC-GLUCOSE METER (BEAKER) 128 mg/dL 70-110 TESTED AT [address] (test eipd=0138) [facility] [address] POCT-GLUCOSE [id number] 18:19:00 Test Item Value Reference Range Comments POC-GLUCOSE METER (BEAKER) 93 mg/dL 70-110 TESTED AT [address] (test mlgk=3202) [facility] [address] POCT-GLUCOSE [id number] 11:44:00 Test Item Value Reference Range Comments POC-GLUCOSE METER (BEAKER) 87 mg/dL 70-110 TESTED AT [address] (test vnjc=0884) [facility] [address] POCT-GLUCOSE [id number] 06:13:00 Test Item Value Reference Range Comments POC-GLUCOSE METER (BEAKER) 158 mg/dL 70-110 TESTED AT [address] (test ruwf=7609) [facility] [address] BLOOD GAS, [id number] 04:53:00 Test Item Value Reference Range Comments PH VENOUS (BEAKER) (test oadt=867) 7.48 7.32-7.42 PCO2 VENOUS (BEAKER) (test havg=115) 37 mmHg 41-51 PO2 VENOUS (BEAKER) (test zhot=928) 94 mmHg 25-40 O2 SATURATION VENOUS (BEAKER) (test xamp=137) 97.7 % 40.0-70.0 HCO3 VENOUS (BEAKER) (test ansx=468) 27 mmol/L 21-29 BASE EXCESS VENOUS (BEAKER) (test clsr=767) 3.7 mmol/L -2.0-3.0 PATIENT TEMPERATURE (BEAKER) (test zrek=3204) 37.0 C RAD, CHEST, 1 VIEW, NON [id number] 04:42:00Reason for exam:->s/p tracheostomyShould this be performed [...] Carrillo Verified Date/Time: 06/10/2018 04:42:37 Reading Location: [address] Reading Room [id number] 04:29:00 Test Item Value Reference Range Comments MAGNESIUM (BEAKER) (test 2.2 mg/dL 1.6-2.6 Specimen slightly hemolyzed ykas=316) [id number] 04:29:00 Test Item Value Reference Range Comments PHOSPHORUS (BEAKER) (test 3.7 mg/dL 2.3-4.7 Specimen slightly hemolyzed pegv=472) BASIC METABOLIC [id number] 04:29:00 Test Item Value Reference Range Comments SODIUM (BEAKER) (test 139 meq/L 136-145 zawk=763) POTASSIUM (BEAKER) (test 4.0 meq/L 3.5-5.1 Specimen slightly nleg=507) hemolyzed CHLORIDE (BEAKER) (test 105 meq/L 98-107 xkia=473) CO2 (BEAKER) (test 24 meq/L 22-29 lphj=631) BLOOD UREA NITROGEN 11 mg/dL 7-21 (BEAKER) (test cpty=660) CREATININE (BEAKER) (test 0.70 mg/dL 0.57-1.25 Specimen slightly olwh=249) hemolyzed GLUCOSE RANDOM (BEAKER) 159 mg/dL 70-105 (test inlo=408) CALCIUM (BEAKER) (test 9.4 mg/dL 8.4-10.2 oyrf=251) EGFR (BEAKER) (test 121 mL/min/1.73 sq m ESTIMATED GFR IS NOT qoiv=3837) ACCURATE CREATININE CLEARANCE IN PREDICTING GLOMERULAR FILTRATION RATE. ESTIMATED GFR IS NOT APPLICABLE FOR DIALYSIS PATIENTS. [id number] 04:18:00 Test Item Value Reference Range Comments PARTIAL THROMBOPLASTIN TIME (BEAKER) (test 24.5 seconds 22.5-36.0 pubk=481) PROTHROMBIN [id number] 04:17:00 Test Item Value Reference Range Comments PROTIME (BEAKER) (test flll=503) 13.7 seconds 11.7-14.7 INR (BEAKER) (test mywq=287) 1.0 <=5.9 RECOMMENDED COUMADIN/WARFARIN INR THERAPY RANGESSTANDARD DOSE: 2.0 - 3.0 Includes: PROPHYLAXIS forvenous thrombosis, systemic embolization; TREATMENT for venous thrombosis and/or pulmonary embolus.HIGH RISK: Target INR is 2.5-3.5 for patients with mechanical heart valves.CBC W/PLT COUNT & AUTO [id number] 04:06:00 Test Item Value Reference Range Comments WHITE BLOOD CELL COUNT (BEAKER) (test ggza=751) 17.9 K/ L 3.5-10.5 RED BLOOD CELL COUNT (BEAKER) (test jiqc=441) 4.34 M/ L 4.63-6.08 HEMOGLOBIN (BEAKER) (test eubb=091) 13.7 GM/DL 13.7-17.5 HEMATOCRIT (BEAKER) (test qlue=744) 42.8 % 40.1-51.0 MEAN CORPUSCULAR VOLUME (BEAKER) (test bhll=041) 98.6 fL 79.0-92.2 MEAN CORPUSCULAR HEMOGLOBIN (BEAKER) (test 31.6 pg 25.7-32.2 orod=183) MEAN CORPUSCULAR HEMOGLOBIN CONC (BEAKER) (test 32.0 GM/DL 32.3-36.5 irss=678) RED CELL DISTRIBUTION WIDTH (BEAKER) (test 14.4 % 11.6-14.4 xfrz=740) PLATELET COUNT (BEAKER) (test sygp=237) 194 K/CU MM 150-450 MEAN PLATELET VOLUME (BEAKER) (test zkgm=603) 10.5 fL 9.4-12.4 NUCLEATED RED BLOOD CELLS (BEAKER) (test 0 /100 WBC 0-0 zqpj=574) NEUTROPHILS RELATIVE PERCENT (BEAKER) (test 92 % asix=788) LYMPHOCYTES RELATIVE PERCENT (BEAKER) (test 2 % kvzd=316) MONOCYTES RELATIVE PERCENT (BEAKER) (test 5 % ppfg=571) EOSINOPHILS RELATIVE PERCENT (BEAKER) (test 0 % mnwj=006) BASOPHILS RELATIVE PERCENT (BEAKER) (test 0 % qbrg=973) NEUTROPHILS ABSOLUTE COUNT (BEAKER) (test 16.35 K/ L 1.78-5.38 gpea=428) LYMPHOCYTES ABSOLUTE COUNT (BEAKER) (test 0.40 K/ L 1.32-3.57 dezl=041) MONOCYTES ABSOLUTE COUNT (BEAKER) (test 0.86 K/ L 0.30-0.82 ljbx=047) EOSINOPHILS ABSOLUTE COUNT (BEAKER) (test 0.00 K/ L 0.04-0.54 yuze=238) BASOPHILS ABSOLUTE COUNT (BEAKER) (test 0.03 K/ L 0.01-0.08 bcak=659) IMMATURE GRANULOCYTES-RELATIVE PERCENT (BEAKER) 1 % 0-1 (test narw=5869) POCT-GLUCOSE [id number] 01:05:00 Test Item Value Reference Range Comments POC-GLUCOSE METER (BEAKER) 161 mg/dL 70-110 TESTED AT [address] (test gfvd=4457) [facility] [address] RAD, CHEST, 1 VIEW, NON [id number] 22:19:00Reason for exam:->Laryngeal massShould this be performed [...] MDReport Verified Date/Time: 06/09/2018 22:19:49 Reading Location: [address] Consult Reading Room 10: 19 PMRAD, CHEST, 1 VIEW, NON [id number] 20:37:00Reason for exam:-> Laryngeal massShould this be [...] MDReport Verified Date/Time: 01/2019 20:37:30 Reading Location: [address] Reading Room RAD, CHEST, 1 VIEW, NON [id number] 20:18:00Reason for exam:->Post-opShould this be performed at [...] MDReport Verified Date/Time: 06/09/2018 20:18:45 Reading Location: [address] Reading Room CBC W/PLT COUNT & AUTO [id number] 19:32:00 Test Item Value Reference Range Comments WHITE BLOOD CELL COUNT (BEAKER) (test skwe=514) 22.9 K/ L 3.5-10.5 RED BLOOD CELL COUNT (BEAKER) (test tkyh=940) 4.82 M/ L 4.63-6.08 HEMOGLOBIN (BEAKER) (test xrgh=860) 15.5 GM/DL 13.7-17.5 HEMATOCRIT (BEAKER) (test enam=368) 48.5 % 40.1-51.0 MEAN CORPUSCULAR VOLUME (BEAKER) (test zwbb=818) 100.6 fL 79.0-92.2 MEAN CORPUSCULAR HEMOGLOBIN (BEAKER) (test 32.2 pg 25.7-32.2 njcd=047) MEAN CORPUSCULAR HEMOGLOBIN CONC (BEAKER) (test 32.0 GM/DL 32.3-36.5 coyz=769) RED CELL DISTRIBUTION WIDTH (BEAKER) (test 14.5 % 11.6-14.4 dzbd=498) PLATELET COUNT (BEAKER) (test lyzv=714) 201 K/CU MM 150-450 MEAN PLATELET VOLUME (BEAKER) (test aotf=927) 10.1 fL 9.4-12.4 NUCLEATED RED BLOOD CELLS (BEAKER) (test 0 /100 WBC 0-0 jcqj=267) (CELLAVISION MANUAL DIFF)2018-06-09 19:32:00 Test Item Value Reference Range Comments NEUTROPHILS - REL (CELLAVISION)(BEAKER) (test 94 % szuw=6307) MONOCYTES - REL (CELLAVISION)(BEAKER) (test 4 % zzkg=2416) BANDS - REL (CELLAVISION)(BEAKER) (test 1 % 0-10 kmfh=0457) NEUTROPHILS - ABS (CELLAVISION)(BEAKER) (test 21.53 K/ul 1.78-5.38 kjtm=3798) MONOCYTES - ABS (CELLAVISION)(BEAKER) (test 0.92 K/uL 0.30-0.82 hfgh=3739) BANDS - ABS (CELLAVISION)(BEAKER) (test 0.23 K/uL 0.00-0.80 iuru=0134) TOTAL COUNTED (BEAKER) (test ezfq=3766) 100 RBC MORPHOLOGY (BEAKER) (test spxb=144) Normal PLT MORPHOLOGY (BEAKER) (test pnek=730) Normal HYPERSEGMENTATION (CELLAVISION)(BEAKER) (test Present uotv=3255) ARTIFACT (CELLAVISION)(BEAKER) (test kbqf=9583) Present PLATELET CONCENTRATION (CELLAVISION)(BEAKER) Adequate (test utiq=4609) Received comment: User comments: Slide comments:[id number] 19:25:00 Test Item Value Reference Range Comments PHOSPHORUS (BEAKER) (test mrul=479) 4.7 mg/dL 2.3-4.7 [id number] 19:25:00 Test Item Value Reference Range Comments MAGNESIUM (BEAKER) (test ioii=381) 2.2 mg/dL 1.6-2.6 BASIC METABOLIC [id number] 19:25:00 Test Item Value Reference Range Comments SODIUM (BEAKER) (test 139 meq/L 136-145 uefx=204) POTASSIUM (BEAKER) (test 3.9 meq/L 3.5-5.1 swcs=181) CHLORIDE (BEAKER) (test 103 meq/L 98-107 npto=213) CO2 (BEAKER) (test 27 meq/L 22-29 avkl=699) BLOOD UREA NITROGEN 15 mg/dL 7-21 (BEAKER) (test mzbt=183) CREATININE (BEAKER) (test 0.81 mg/dL 0.57-1.25 tjfl=185) GLUCOSE RANDOM (BEAKER) 139 mg/dL 70-105 (test blqg=204) CALCIUM (BEAKER) (test 9.3 mg/dL 8.4-10.2 wswd=547) EGFR (BEAKER) (test 102 mL/min/1.73 sq m ESTIMATED GFR IS NOT olqs=2932) ACCURATE CREATININE CLEARANCE IN PREDICTING GLOMERULAR FILTRATION RATE. ESTIMATED GFR IS NOT APPLICABLE FOR DIALYSIS PATIENTS. PROTHROMBIN TIME/[id number] 19:18:00 Test Item Value Reference Range Comments PROTIME (BEAKER) (test dsjh=230) 13.0 seconds 11.7-14.7 INR (BEAKER) (test vnlw=489) 1.0 <=5.9 RECOMMENDED COUMADIN/WARFARIN INR THERAPY RANGESSTANDARD DOSE: 2.0 - 3.0 Includes: PROPHYLAXIS forvenous thrombosis, systemic embolization; TREATMENT for venous thrombosis and/or pulmonary embolus.HIGH RISK: Target INR is 2.5-3.5 for patients with mechanical heart valves.[id number] 19:18:00 Test Item Value Reference Range Comments PARTIAL THROMBOPLASTIN TIME (BEAKER) (test 24.0 seconds 22.5-36.0 hrvh=195) [id number] 12:47:00 Test Item Value Reference Range Comments HEMOGLOBIN (BEAKER) (test pjpo=495) 15.7 GM/DL 13.7-17.5 PLATELET [id number] 12:47:00 Test Item Value Reference Range Comments PLATELET COUNT (BEAKER) (test qvjr=856) 203 K/CU MM 150-450
--- NOTE | 2019-02-10 19:01 | EDPHYS ---
Physician Documentation [facility] Name: Akin Pugh Age: 48 yrs Sex: Male : 1970 Arrival Date: 02/10/2019 Time: 16:50 Bed 28 Private MD: ED Physician Eligio Gilbert HPI: 02/10 20:48 This 48 yrs old Male presents to ER via Ambulatory with complaints of Neck kdr Swelling, Breathing Difficulty. 20:48 The patient or guardian complains of pain, that is acute, swelling, Increased swelling kdr and erythema. The symptoms are located diffusely. Onset: The symptoms/episode began/occurred gradually, yesterday. Context: The problem was sustained at home, The neck injury/problem resulted from from unknown cause. Associated signs and symptoms: Pertinent positives: SOB, congestion. The pain does not radiate. Modifying factors: The symptoms are alleviated by nothing. the symptoms are aggravated by activity and trying to move. Severity of symptoms: At their worst the symptoms were mild, in the emergency department the symptoms are unchanged. The patient has experienced similar episodes in the past, multiple times. The patient has been recently been admitted at [facility], was discharged yesterday. Historical: - Allergies: 17:16 Ampicillin; mg2 17:16 Iodinated Contrast Media - IV Dye; mg2 17:16 Iodine; mg2 17:16 Levaquin; mg2 - Home Meds: 17:16 escitalopram oxalate Oral [Active]; Levoxyl Oral [Active]; mg2 - PMHx: 17:16 Asthma; COPD; THROAT CA; mg2 - PSHx: 17:16 leg surgery; trache; mg2 - Immunization history:: Flu vaccine is not up to date. - Social history:: Smoking status: Patient uses alcohol, occasionally. Patient/guardian denies using street drugs, IV drugs. - Ebola Screening: : No symptoms or risks identified at this time. ROS: 20:48 Constitutional: Negative for fever, chills, and weight loss, Eyes: Negative for injury, kdr pain, redness, and discharge, Cardiovascular: Negative for chest pain, palpitations, and edema, Respiratory: Negative for shortness of breath, cough, wheezing, and pleuritic chest pain, Abdomen/GI: Negative for abdominal pain, nausea, vomiting, diarrhea, and constipation, Back: Negative for injury and pain. 20:48 Neck: Positive for Negative for pain at rest, swollen nodes, bony tenderness. Exam: 20:48 Constitutional: This is a well developed, well nourished patient who is awake, alert, kdr and in no acute distress. Head/Face: Normocephalic, atraumatic. Chest/axilla: Normal chest wall appearance and motion. Nontender with no deformity. No lesions are appreciated. Cardiovascular: Regular rate and rhythm with a normal S1 and S2. No gallops, murmurs, or rubs. Normal PMI, no JVD. No pulse deficits. 20:48 Neck: Slight increased right neck swelling and erythema with possible slight swelling in the submental area.. Vital Signs: 17:12 Pulse 77; Resp 18; Temp 99.4; Pulse Ox 96% on R/A; Weight 83.91 kg; Height 6 ft. 0 in. mg2 (182.88 cm); Pain 8/10; 17:22 BP 136 / 92; mg2 19:00 BP 135 / 78; Pulse 80; Resp 18; Pulse Ox 98% on R/A; mg2 20:00 BP 125 / 78; Pulse 78; Resp 18; Pulse Ox 98% ; mg2 21:06 BP 126 / 88; Pulse 78; Resp 18; Temp 99; Pulse Ox 97% on R/A; mg2 17:12 Body Mass Index 25.09 (83.91 kg, 182.88 cm) mg2 MDM: 18:59 Patient medically screened. kdr 20:48 Data reviewed: vital signs, nurses notes, lab test result(s). Counseling: I had a kdr detailed discussion with the patient and/or guardian regarding: the historical points, exam findings, and any diagnostic results supporting the discharge/admit diagnosis, lab results, the need for further work-up and treatment in the hospital. Physician consultation: Keya Pardo MD regarding consult, patient's condition, need to come to ED to see patient, and will see patient in ED, immediately. ED course: The patient tolerated the procedure well and Dr. Pardo felt that the patient would benefit from readmission and further IV abx short term. 02/10 19:37 Order name: CBC with Diff kdr 02/10 19:37 Order name: Chem 7 kdr Administered Medications: No medications were administered Disposition: 02/10/19 18:59 Hospitalization ordered by Michael Chaudhary for Inpatient Admission. Preliminary diagnosis is Cellulitis of neck. - Bed requested for Telemetry/MedSurg (Inpatient). - Status is Inpatient Admission. mg2 - Condition is Fair. - Problem is an acute exacerbation. - Symptoms are unchanged. UTI on Admission? No Signatures: Dispatcher [employer] [facility] Eligio Gilbert MD MD [facility] Megan Alexis RN RN fc Anderson Avila RN RN mg2 Corrections: (The following items were deleted from the chart) 19:15 17:36 Soft Tissue Neck W/Contr+CT.RAD.BRZ ordered. [facility] EDOK 20:50 18:59 Hospitalization Ordered by Michael Chaudhary for Inpatient Admission. Preliminary diagnosis is Cellulitis of neck. Bed requested for Telemetry/MedSurg (Inpatient). Status is Inpatient Admission. Condition is Fair. Problem is an acute exacerbation. Symptoms are unchanged. UTI on Admission? No. kdr 21:33 20:50 02/10/2019 18:59 Hospitalization Ordered by Michael Chaudhary for Inpatient mg2 Admission. Preliminary diagnosis is Cellulitis of neck. Bed requested for Telemetry/MedSurg (Inpatient). Status is Inpatient Admission. Condition is Fair. Problem is an acute exacerbation. Symptoms are unchanged. UTI on Admission? No. fc
--- NOTE | 2019-02-10 19:01 | ER ---
Nurse's Notes [facility] Name: Akin Pugh Age: 48 yrs Sex: Male : 1970 Arrival Date: 02/10/2019 Time: 16:50 Bed 28 Private MD: Diagnosis: Cellulitis of neck Presentation: 02/10 17:09 Presenting complaint: states: he was just d/c yesterday from the floor for mg2 cellulitis in the neck. his neck is more swollen. he has fever today t-max 103 and he took motrin \T\ 1200 noon. he is on doxycycline and bactrim. Transition of care: patient was not received from another setting of care. Onset of symptoms was February 10, 2019. Risk Assessment: Do you want to hurt yourself or someone else? Patient reports no desire to harm self or others. Initial Sepsis Screen: Does the patient meet any 2 criteria? No. Patient's initial sepsis screen is negative. Does the patient have a suspected source of infection? No. Patient's initial sepsis screen is negative. Care prior to arrival: None. 17:09 Method Of Arrival: Ambulatory mg2 17:09 Acuity: PAO 3 mg2 Historical: - Allergies: 17:16 Ampicillin; mg2 17:16 Iodinated Contrast Media - IV Dye; mg2 17:16 Iodine; mg2 17:16 Levaquin; mg2 - Home Meds: 17:16 escitalopram oxalate Oral [Active]; Levoxyl Oral [Active]; mg2 - PMHx: 17:16 Asthma; COPD; THROAT CA; mg2 - PSHx: 17:16 leg surgery; trache; mg2 - Immunization history:: Flu vaccine is not up to date. - Social history:: Smoking status: Patient uses alcohol, occasionally. Patient/guardian denies using street drugs, IV drugs. - Ebola Screening: : No symptoms or risks identified at this time. Screenin:17 Abuse screen: Denies threats or abuse. Denies injuries from another. Nutritional mg2 screening: No deficits noted. Tuberculosis screening: No symptoms or risk factors identified. Fall Risk None identified. Assessment: 17:17 General: Appears in no apparent distress. comfortable, Behavior is calm, cooperative. mg2 Pain: Complains of pain in neck Pain does not radiate. Pain currently is 8 out of 10 on a pain scale. Quality of pain is described as aching, Pain began gradually, Is intermittent. Neuro: Level of Consciousness is awake, alert, obeys commands, Oriented to person, place, time, situation. Cardiovascular: Capillary refill < 3 seconds Patient's skin is warm and dry. Respiratory: Airway is patent Respiratory effort is even, unlabored, Respiratory pattern is regular, symmetrical, Breath sounds with wheezes bilaterally. in mediastinum, right upper lobe, left upper lobe, right middle lobe, left lower lobe and right lower lobe. Respiratory: Reports. GI: No signs and/or symptoms were reported involving the gastrointestinal system. : No signs and/or symptoms were reported regarding the genitourinary system. EENT: No signs and/or symptoms were reported regarding the EENT system. Derm: Derm: redness and swelling in the neck. Musculoskeletal: Circulation, motion, and sensation intact. Capillary refill < 3 seconds. 17:42 Reassessment: provider said we will wait for the ENT - Dr. Bryan to come and see [place] [facility] [place] before doing the ct. patient is not in distress and suctioning is put on hold til cleared by ENT. 20:11 Reassessment: seen by dr chaudhary-hospitalist. dr bryan came and scope the patient and mg2 advised to admit him for more iv antibiotic. Vital Signs: 17:12 Pulse 77; Resp 18; Temp 99.4; Pulse Ox 96% on R/A; Weight 83.91 kg; Height 6 ft. 0 in. mg2 (182.88 cm); Pain 8/10; 17:22 BP 136 / 92; mg2 19:00 BP 135 / 78; Pulse 80; Resp 18; Pulse Ox 98% on R/A; mg2 20:00 BP 125 / 78; Pulse 78; Resp 18; Pulse Ox 98% ; mg2 21:06 BP 126 / 88; Pulse 78; Resp 18; Temp 99; Pulse Ox 97% on R/A; mg2 17:12 Body Mass Index 25.09 (83.91 kg, 182.88 cm) mg2 ED Course: 16:50 Patient arrived in ED. mr 17:09 Anderson Avila, JEAN is Primary Nurse. mg2 17:12 Triage completed. mg2 17:17 Arm band placed on. mg2 17:19 Eligio Gilbert MD is Attending Physician. kdr 17:22 Patient has correct armband on for positive identification. Pulse ox on. NIBP on. Door mg2 closed. 17:38 Radiology exam delayed due to lab results not completed at this time. (BUN/Creatinine) kw1 IV insertion attempt and/or patient not having appropriate IV at this time. 18:31 Radiology exam delayed due to Per Dr. Gilbert, Dr. Bryan to scope the pt throat will kw1 call when pt is ready. 18:59 Michael Chaudhary is Hospitalizing Provider. kdr 20:11 No provider procedures requiring assistance completed. Inserted saline lock: 20 gauge mg2 in left forearm, using aseptic technique. Blood collected. 21:13 Patient admitted, IV remains in place. mg2 Administered Medications: No medications were administered Outcome: 18:59 Decision to Hospitalize by Provider. kdr 21:13 Admitted to Med/surg accompanied by tech, via wheelchair, room 209, with chart, Report mg2 called to Aleyda. RN 21:13 Condition: stable 21:13 Instructed on the need for admit, Demonstrated understanding of instructions. 21:33 Patient left the ED. mg2 Signatures: Eligio Gilbert MD MD kdr Rivera, Mary Caterina Norwoodly kw1 Anderson Avila, RN RN mg2 Corrections: (The following items were deleted from the chart) 21:13 21:06 Pulse 78bpm; Resp 18bpm; Pulse Ox 97% RA; Temp 99F; mg2 mg2
[2019-02-10 20:17] LABS: Absolute Lymphocytes (CBC) 0.8 K/uL (0.7-4.9); Basophils % 0.6 % (0-1.3); Hematocrit 53.4 % (39.6-49.0); Lymphocytes % 10.8 % (15.3-44.8); MPV 8.5 fL (7.6-11.3); RBC Red Blood Cell Count 5.39 M/uL (4.33-5.43)
--- NOTE | 2019-02-10 20:29 | P.HP ---
Certification for Inpatient With expected LOS: >2 Midnights Practitioner: I am a practitioner with admitting privileges, knowledge of patient current condition, hospital course, and medical plan of care. Services: Services provided to patient in accordance with Admission requirements found in Title 42 Section 412.3 of the Code of Federal Regulations Patient History Date of Service: 02/11/19 Reason for admission: Fever and neck swelling History of Present Illness: 48-year-old gentleman with a history of laryngeal cancer status post total laryngectomy and percutaneous flap, complicated by cellulitis and abscess, status post prolonged antibiotic therapy with vancomycin and clindamycin. he since then has experienced recurrent cellulitis in the neck area. The patient was here a couple of days ago for fever and neck swelling. CT soft tissue of the neck reported no abscess. The patient was admitted for cellulitis of the neck area, seen and examined by ENT and discharged with oral Bactrim and doxycycline. Patient returns to the ED due to a bout of fever, persistent pain in the submandibular area. He also reports suctioning blood from his tracheostomy. He has a nasal trumpet inserted onto the trachea stoma to serve as a laryngeal tube. History is limited because patient cannot phonate well. Per ED physician, patient was seen and examined by ENT-Dr. Pardo in the ED and deemed okay to be hospitalized here for antibiotics and monitoring. Patient temperature noted to be 99. 4 in the ED. Allergies levofloxacin [From Levaquin] Allergy (Severe, Verified 02/10/19 21:37) Itching/Hives/Rash ampicillin Allergy (Verified 02/10/19 21:37) Itching/Hives/Rash iodine Allergy (Verified 02/10/19 21:37) Hives/Rash Home Medications: Escitalopram [Lexapro*] 20 mg PO DAILY 05/27/18 Levothyroxine Sodium [Levoxyl] 137 mcg PO [id number] 06/26/18 Guaifenesin [Mucinex] 400 mg PO BID 02/08/19 Hydrocodone Bit/Acetaminophen [Hydrocodon-Acetaminophn 10-325] 1 each PO Q6H 01/17 Doxycycline Hyclate 100 mg PO BID #20 tablet 02/09/19 Nicotine [Nicoderm*] 21 mg TD DAILY #30 patch.td24 02/09/19 Sulfamethoxazole/Trimethoprim [Bactrim Ds Tablet] 1 each PO BID #20 tablet 02/09 - Past Medical/Surgical History Diabetic: No -: Asthma -: Depression -: Throat cancer status post complete laryngectomy/reconstruction 06/2018 -: Recurrent postop infection -: Chronic pain -: Former tobacco use -: Surgical hypothyroidism -: Tracheostomy -: Appendectomy -: Complete laryngectomy with reconstruction -: knee surgery bilateral knees -: Thyroidectomy Psychosocial/ Personal History: Patient is . He has 3 children. - Family History Father -: Heart disease, Diabetes Notes: agent orange: immobile Mother -: Cancer Notes: breast ca - Social History Alcohol use: Yes CD- Drugs: No Caffeine use: Yes Review of Systems Other: General: No fever, no malaise, no unintentional weight loss. Eyes: No eye discharge, Respiratory: No shortness of breath. He denies wheezing or stridor CVS: No chest pain, no palpitation, no lightheadedness. GI: No abdominal pain, no nausea no vomit, no constipation, no diarrhea. Genitourinary: No dysuria, no urinary frequency, no incontinence, no hematuria. Musculoskeletal: No joint pains, or joint swelling, no gait instability. Neurology: No headache, no asymmetric, weakness, no problem with swallowing. Except as documented, all other systems reviewed and negative. Physical Examination - Physical Exam General: Alert, In no apparent distress, Oriented x3 HEENT: Atraumatic, Normocephalic, Mucous membr. moist/pink Neck: Other (Tracheostomy stoma with trumpet nasal tube. Reddness and swelling noted in the submandibular areas.) Respiratory: Clear to auscultation bilaterally, Normal air movement Cardiovascular: No edema, Normal pulses, Regular rate/rhythm, Normal S1 S2, No murmurs Capillary refill: <2 Seconds Gastrointestinal: Normal bowel sounds, Soft and benign, Non-distended, No tenderness Musculoskeletal: No swelling Integumentary: Tenderness/swelling (In the neck area as mentioned above) Neurological: Normal strength at 5/5 x4 extr Assessment and Plan - Problems (Diagnosis) (1) Cellulitis of neck Current Visit: Yes Status: Acute (2) History of laryngeal cancer Current Visit: Yes Status: Acute (3) Tobacco abuse Onset Date: 10/14/17 Current Visit: No Status: Chronic (4) Tracheostomy dependent Current Visit: Yes Status: Acute - Plan Admit to medical floor Start IV vancomycin and clindamycin Allergy to penicillin noted. Will add IV Azactam ENT to follow IV morphine p.r.n. for pain Follow CBC Follow blood cultures - Advance Directives Does patient have a Living Will: Yes Does patient have a Durable POA for Healthcare: Yes
[2019-02-10 20:37] LABS: BUN Blood Urea Nitrogen 8 mg/dL (7-18); Bicarbonate 26 mmol/L (21-32); Glucose Level 87 mg/dL (74-106); Potassium 3.8 mmol/L (3.5-5.1); Sodium Level 140 mmol/L (136-145)
[2019-02-10] MEDS ORDERED: ONDANSETRON 4 MG/2 ML VIAL IV PRN (21:17)
[2019-02-10] MEDS ORDERED: ACETAMINOPHEN 500 MG TAB PO PRN (21:17)
[2019-02-10] MEDS ORDERED: VANCOMYCIN/NS 1 gm 1 GM/250 ML BAG IVPB SCH (21:17)
[2019-02-10 21:37] VITALS: BMI 25.0
[2019-02-10] MEDS: MORPHINE 2 MG/ML SYR IV PRN (22:00)
[2019-02-10] MEDS: NA CHLORIDE 0.9% 1,000 ML IV SCH (22:01)
[2019-02-10] MEDS ORDERED: VANCOMYCIN 1 GM/VIAL ONE (22:14)
[2019-02-10] MEDS ORDERED: AZTREONAM 1 GM/VIAL ONE (22:30)
[2019-02-10] MEDS ORDERED: CLINDAMYCIN 600MG/D5W 600 MG/50 ML BAG IV ONE (22:30)
[2019-02-10] MEDS ORDERED: NA CHLORIDE 0.9% 500 ML ONE (22:43)
[2019-02-10] MEDS: VANCOMYCIN 1.5 GM in NA CHLORIDE 0.9% 500 ML IVPB SCH (22:52)
[2019-02-10] MEDS: AZTREONAM 1 GM/VIAL IV SCH (22:52)
--- NOTE | 2019-02-10 23:52 | CON ---
Date of Consultation: 02/10/2019 Reason For Consultation: Cellulitis, hemoptysis. History Of Present Illness: Mr. Pugh is a 48-year-old male, well known to me. 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 His laryngectomy was completed with [facility] staff around May of 2018. The patient was in the emergency room on Saturday morning and was discharged yesterday afternoon following improvement of his neck pain, redness, and swelling with administration of IV antibiotics. He was discharged with oral doxycycline and Bactrim, but over the last 24 hours has had increasing pain , noted increased redness of the anterior neck and swelling of the soft tissues of the anterior neck; and due to the progression of the symptoms, he came to the emergency room. I was consulted to discuss the patient's condition and role for additional imaging. Patient did undergo CT scan of the neck during his recent admission and there was no evidence of significant fluid collection or abscess formation at that time. Shortly prior to my arrival in the emergency room, the patient experienced a small volume hemoptysis through his tracheal stoma, which appeared to approximately half a teaspoon of blood mixed with some mucus, but did appear to include fresh blood. He had not recently experienced any hemoptysis. Past Medical and Surgical History: Stage III laryngeal cancer, status post chemoradiation completed in the summer with tracheostomy at the time of diagnosis in spring. Total laryngectomy with pec flap and total thyroidectomy in spring Knee surgery Appendectomy Depression previously treated with Lexapro. I am uncertain if the patient is currently taking this medication. Allergic rhinitis. Allergies: LEVAQUIN. Ampicillin. SH: Tobacco use, working on quitting with patch with fluctuations in motivation to quit Family History: Mother with asthma and cancer. Father with DM, [place], hearing loss. Home Medications: levothyroxine, alprazolam, Stiolto inhaler Physical Examination: General: Patient appears in no distress. He is alert and oriented. HEENT: His pupils are equal, round, reactive. His extraocular movements are intact. His external nose is unremarkable. His nares are patent. His oral cavity is without significant lesions or ulcerations. External ear are normal. The ear canal and tympanic membranes are not examined at this time. NECK: Patent tracheal stoma, which is well healed. The patient has a trimmed nasal trumpet, which is functioning as make-shift Mirtha Tube is removed. The lateral corners of the trachea near the stoma appear irritated and there is small amount of fresh blood, but no evidence of active bleeding. The patient's anterior skin of the neck between the chin and the stoma is moderately erythematous, is tender to touch, and is mildly edematous. The patient has a well-healed skin paddle on the right side of the neck, which appears well perfused. There is no evidence of breaks in the skin. There is no evidence of purulent drainage from the skin or soft tissues. There is no palpable induration or fluctuant areas. Due to sudden hemoptysis, at the bedside, flexible bronchoscopy is performed: After verbal consent, the flexible bronchoscope was passed through the patient' s laryngostoma. The tracheal wall appears moderately inflamed with patches of erythema and redness. There is no current evidence of tracheal-innominate fistula. The anterior wall of the cervical trachea appears smooth without any ulcerations, crusting, or scabbing. The eusebio is well visualized. There is very scant crusting and dried secretions along the wall and the edges of the left and right mainstem bronchus. There is no evidence of fresh blood or clot within either the right or left mainstem bronchus. There is no evidence of foreign body granulation or significant crusting. The secondary bronchi are visualized and appear likewise clear. The scope is then withdrawn and the patient's nasal trumpet/laryngectomy tube is replaced by the patient without difficulty. Assessment: 1. Soft tissue cellulitis of the neck with worsening after 24 hours on oral therapy. 2. Status post total laryngectomy, history of radiation treatment. 3. Current tobacco use. 4. Hemoptysis Recommendations: Re-admission for IV antibiotics given worsening shortly after discharge despite oral medications. I would recommend at least 48-72 hours of IV therapy prior to discharge even if patient has clinical improvement due to this early readmission. Appropriate antibiotic coverage is challenging given no available material for culture. The patient's sputum is clear, white color - culture could be considered but it not the site of the infection and is likely to show respiratory maximo. I would recommend coverage for skin maximo including Staph and Strep. Vancomycin is a good option, but lacks a good oral comparative. We will defer final antibiotic selection to the admitting physician. Due to patient's laryngectomy status with the recent weather change and overall low humidity, I recommend administration of saline nebulizers by RT 2-3 times a day. Additional nebulizer treatments with medications can be given according to the admitting physician or on an as-needed basis. Patient denies any subjective shortness of breath or wheezing. Patient is accustom to self suctioning at home and can perform ad get Continue nicotine patch for tobacco withdrawal. There are no current indications for surgical intervention, and patient can be put on regular or as tolerated diet. Referral was sent yesterday to [facility]'s Dr. Gloria Canchola for out-patient follow up for discussion of TEP placement and to assist in getting appropriate larygectomy supplies and support from the Speech Path department. Patient's girlfriend is given the clinic information to contact and arrange appointments. MICHELLE Voice ID: [id number] Report ID: [id number] JODEE
[2019-02-11] MEDS: CLINDAMYCIN INJ 600 MG in NA CHLORIDE 0.9% 50 ML IV SCH ×3 (01:00→16:21)
[2019-02-11] MEDS ORDERED: CLINDAMYCIN IV 150 MG/ML (6 mL) VIAL ONE (01:28)
[2019-02-11] MEDS ORDERED: NA CHLORIDE 0.9% 50 ML ONE (01:29)
[2019-02-11] MEDS: MORPHINE 2 MG/ML SYR IV PRN ×6 (01:46→22:46)
[2019-02-11] MEDS: HYDROCODONE/APAP 10/325 TAB PO SCH ×5 (03:00→21:18)
[2019-02-11] MEDS: LEVOTHYROXINE SOD 0.025 MG TAB PO SCH (05:42)
[2019-02-11] MEDS: LEVOTHYROXINE SOD 0.112 MG TAB PO SCH (05:42)
[2019-02-11] MEDS: AZTREONAM 1 GM/VIAL IV SCH (05:42)
[2019-02-11 05:53] LABS: Absolute Lymphocytes (CBC) 0.8 K/uL (0.7-4.9); Basophils % 0.7 % (0-1.3); Hematocrit 48.8 % (39.6-49.0); Lymphocytes % 14.3 % (15.3-44.8); MPV 8.4 fL (7.6-11.3); RBC Red Blood Cell Count 4.97 M/uL (4.33-5.43)
[2019-02-11 06:00] LABS: BUN Blood Urea Nitrogen 8 mg/dL (7-18); Bicarbonate 30 mmol/L (21-32); Glucose Level 87 mg/dL (74-106); Phosphorus 3.8 mg/dL (2.5-4.9); Potassium 3.7 mmol/L (3.5-5.1); Sodium Level 143 mmol/L (136-145)
[2019-02-11] MEDS ORDERED: LEVOTHYROXINE SOD 0.1 MG TAB PO SCH (06:00)
[2019-02-11] MEDS: NA CHLORIDE 0.9% 1,000 ML IV SCH (07:17)
[2019-02-11] MEDS ORDERED: INFLUENZA VACCINE (for 3y+) 0.5 ML DOSE IMVAC ONE (08:00)
[2019-02-11 08:34] LABS: Anisocytosis 1+; Blood Morphology Comment NOTED (NOT SEEN); Platelet Estimate ADEQ
[2019-02-11 08:44] LABS: Urine Appearance CLEAR; Urine Bilirubin NEGATIVE (NEG); Urine Blood NEGATIVE (NEG); Urine Color YELLOW; Urine Glucose NEGATIVE (NEG); Urine Protein NEGATIVE (NEG); Urine Specific Gravity 1.015 (1.005-1.030)
[2019-02-11 08:47] LABS: Urine Microscopic Reflex NO UMIC
[2019-02-11] MEDS: guaiFENesin 100 MG/5 ML UCUP PO SCH ×2 (09:00→21:18)
[2019-02-11] MEDS: NICOTINE 21 MG/PAT TD SCH (09:00)
[2019-02-11] MEDS ORDERED: POTASSIUM CL SA 10 MEQ TAB PO ONE (09:00)
[2019-02-11] MEDS: ESCITALOPRAM 20 MG TAB PO SCH (09:00)
[2019-02-11] MEDS ORDERED: IPRATROPIUM BROM 0.5MG/2.5ML NEB PRN (09:12)
[2019-02-11] MEDS ORDERED: ALBUTEROL 2.5 MG/3 ML NEB SOL NEB PRN (09:55)
[2019-02-11] MEDS: VANCOMYCIN 1.5 GM in NA CHLORIDE 0.9% 500 ML IVPB SCH ×2 (10:23→22:46)
[2019-02-11] MEDS: CEFEPIME/SWI 1gm 10 ML IV SCH ×2 (12:00→16:17)
[2019-02-11] MEDS ORDERED: ALBUTEROL 2.5 MG/3 ML NEB SOL NEB SCH (14:00)
--- NOTE | 2019-02-11 15:21 | PN ---
Date of Progress Note: 02/11/2019 Subjective: Patient seen and examined. Chart reviewed and case discussed with RN. Patient doing we ll, better than yesterday, and does not complain of any significant pain. Tolerating IV antibiotics well. Medications: List reviewed. Physical Examination: Vital Signs: Temperature 97.1, heart rate 65, blood pressure 146/80, respirations 17, O2 96% on room air. General: Awake, alert, oriented x3, in some mild distress, ill-appearing male. CV: S1, S2. Regular rate and rhythm. Peripheral pulses present. Respiratory: Moving air well bilaterally. No wheezing or stridor. No use of accessory muscles. Gastrointestinal: Abdomen is soft, nontender, nondistended. Positive bowel sounds. Extremities: No clubbing, cyanosis, or edema. Neurologic: Nonfocal. Neck: Patient has a tracheal stoma with nasal trumpet in place, some minimal erythema around the cor ners. No active bleeding seen from the stoma. Laboratory Data: Sodium 143, potassium 3.7, chloride 107, CO2 of 30, BUN 8, creatinine 0.82, glucose 87, calcium 7.9, phosphorus 3.8, magnesium 2. WBC 5.7, H and H 16.6 and 48.8, platelets 205, neutro phils 67%. UA is negative. Blood cultures are pending. Blood cultures from previous visit also neg ative. Assessment And Plan: A 48-year-old male with: 1.Recurrent cellulitis of the neck. We will continue with IV antibiotics. We will switch to cefepi me. Patient has received cefepime in the past with no allergic reaction noted. Appreciate, Dr. Herr casillas's input. No surgical intervention recommended at this time. 2.History of laryngeal cancer, status post laryngectomy. Patient will need continued care and suppl ies. 3.Nicotine dependence with cigarette smoking, counseled. 4.Tracheostomy dependent. 5.Chronic pain syndrome. 6.Major depressive disorder, on Lexapro. 7.Asthma. We will resume breathing treatments. 8.Deep vein thrombosis prophylaxis, SCDs. No chemical anticoagulation due to hemoptysis from the tr ach site. 9.Hemoptysis from the trach tracheostomy site. Patient underwent a laryngeal scope by Dr. Pardo. No active bleeding was seen. We will continue to monitor for now. Continue IV antibiotics for the next 48 hours before transitioning to oral. /LILLIAN Voice ID: [id number] Report ID: [id number]
[2019-02-12] MEDS: CLINDAMYCIN INJ 600 MG in NA CHLORIDE 0.9% 50 ML IV SCH ×3 (01:00→18:04)
[2019-02-12] MEDS: CEFEPIME/SWI 1gm 10 ML IV SCH ×3 (01:00→16:06)
[2019-02-12] MEDS: HYDROCODONE/APAP 10/325 TAB PO SCH ×4 (03:00→21:08)
[2019-02-12] MEDS: MORPHINE 2 MG/ML SYR IV PRN ×5 (04:31→22:44)
[2019-02-12 05:18] LABS: BUN Blood Urea Nitrogen 8 mg/dL (7-18); Bicarbonate 33 mmol/L (21-32); Glucose Level 95 mg/dL (74-106); Sodium Level 143 mmol/L (136-145)
[2019-02-12] MEDS: LEVOTHYROXINE SOD 0.112 MG TAB PO SCH (05:25)
[2019-02-12] MEDS: LEVOTHYROXINE SOD 0.025 MG TAB PO SCH (05:25)
[2019-02-12] MEDS: ESCITALOPRAM 20 MG TAB PO SCH (08:33)
[2019-02-12] MEDS: NICOTINE 21 MG/PAT TD SCH (08:33)
[2019-02-12] MEDS: guaiFENesin 100 MG/5 ML UCUP PO SCH ×2 (08:49→21:08)
[2019-02-12] MEDS: VANCOMYCIN 1.5 GM in NA CHLORIDE 0.9% 500 ML IVPB SCH ×2 (10:51→22:31)
--- NOTE | 2019-02-12 18:37 | PN ---
Date of Progress Note: 02/12/2019 Subjective: Patient seen and examined. Chart reviewed and case discussed with RN. Patient isabel ricardo is doing well, was very rude to the staff and case management specialist tried to help him with his trach suppli es. Medications list reviewed. Physical Examination: Vital Signs: Temperature 98, heart rate 49, blood pressure 119/63, respirations 16, O2 96% on room a ir. General: Awake, alert, oriented x3, not in any acute distress. CV: S1, S2. Regular rate and rhythm. Peripheral pulses present. Respiratory: Moving air well bilaterally. No wheezing or stridor. Gastrointestinal: Abdomen is soft, nontender, nondistended. Positive bowel sounds. Neck: Patient has tracheostomy with nasal trumpet in place. Extremities: No clubbing, cyanosis, or edema. Neurologic: Nonfocal. Laboratory Data: Sodium 143, potassium 4, chloride 105, CO2 of 33, BUN 8, creatinine 0.8, glucose 95 , calcium 8.1. Blood cultures, no growth to date. Assessment: 48-year-old male with: 1.Recurrent cellulitis of the neck, failed outpatient treatment. We will continue with intravenous antibiotics. ENT on board. 2.History of laryngeal cancer, status post laryngectomy and reconstruction. Continue with trach car davion. land leases and rentals manager working on getting patient's supplies. 3.Status post tracheostomy dependent. 4.Chronic pain syndrome. 5.Major depressive disorder, on Lexapro, stable. 6.Intermittent asthma, stable. Continue with albuterol p.r.n. 7.Nicotine dependence with cigarette smoking, counseled. 8.Deep venous thrombosis prophylaxis with SCDs. No chemical anticoagulation. Patient had hemoptysi s to trach site. Plan: Continue IV antibiotics. Follow up on cultures, negative to date. Likely discharged in next 24 to 48 hours once cleared by ENT. SA/MODL Voice ID: [id number] Report ID: [id number]
[2019-02-12 21:48] VITALS: O2SAT 98
[2019-02-13] MEDS: CLINDAMYCIN INJ 600 MG in NA CHLORIDE 0.9% 50 ML IV SCH ×2 (00:22→09:09)
[2019-02-13] MEDS: CEFEPIME/SWI 1gm 10 ML IV SCH ×2 (00:22→09:05)
[2019-02-13] MEDS: MORPHINE 2 MG/ML SYR IV PRN ×3 (02:52→12:38)
[2019-02-13] MEDS: HYDROCODONE/APAP 10/325 TAB PO SCH ×3 (02:58→11:15)
[2019-02-13] MEDS: LEVOTHYROXINE SOD 0.112 MG TAB PO SCH (05:32)
[2019-02-13] MEDS: LEVOTHYROXINE SOD 0.025 MG TAB PO SCH (05:32)
[2019-02-13] MEDS: ESCITALOPRAM 20 MG TAB PO SCH (09:04)
[2019-02-13] MEDS: NICOTINE 21 MG/PAT TD SCH (09:04)
[2019-02-13] MEDS: guaiFENesin 100 MG/5 ML UCUP PO SCH (09:05)
[2019-02-13] MEDS: VANCOMYCIN 1.5 GM in NA CHLORIDE 0.9% 500 ML IVPB SCH (11:15)
--- NOTE | 2019-02-13 13:16 | P.PN ---
Date of Service: 02/13/19 Patient seen around noon today. Subjectively improved pain and swelling. NAD. Alert. Dressed in street clothes. Vancomycin infusing in to L UE via PIV. Stoma patent without crusting or bleeding. Suprastoma skin erythema is resolved and non-tender and less edematous. Discussed with patient and he's amenable for discharge with continuation of Doxy and Bactrim. FU with Dr Edvin GERARD. Referral to H&N subspecialist Dr Gloria Canchola was sent from my office to [facility] on Saturday and patient's girlfriend, Ivet, was given clinic contact information on Saturday evening.
[2019-02-13 13:17] VITALS: BP 119/81; TEMP 97
--- NOTE | 2019-02-14 04:15 | DS ---
Date of Discharge: 02/13/2019 Consultants: Dr. Pardo with ENT. Procedures: Flexible bronchoscope. Admitting Diagnoses: 1.Cellulitis of the neck. 2.History of laryngeal cancer. 3.Nicotine dependence with cigarette smoking, continuous. 4.Tracheostomy dependent. Discharge Diagnoses: 1.Cellulitis of the neck, failed outpatient treatment. Cultures negative. 2.History of laryngeal cancer status post laryngectomy and reconstruction. 3.Status post tracheostomy, dependent. 4.Chronic pain syndrome. 5.Major depressive disorder, on SSRI. 6.Intermittent asthma, stable. 7.Nicotine dependence with cigarette smoking, counseled. Hospital Course: Patient is a 48-year-old male with past medical history of laryngeal cancer status post total laryngectomy with percutaneous flap, who had complications with cellulitis and abscess, wa s on prolonged antibiotic therapy, comes in with fever and neck swelling. Patient was recently disch arged from the hospital on Bactrim and doxycycline. Continue to have pain, fever, therefore came corinne k in to the facility. It should be noted that the patient had a nasal trumpet inserted into the stom a serving as a laryngeal tube. When questioned about his supplies, the patient was apprehensive, did not answer or allow the therapeutic case manager to help with his supplies. Patient was seen by ELIJAH Farr who did perform a bedside flexible bronchoscopy. Patient did have some bleeding from the trach sit e; however, there was no indication of surgical intervention per ENT and the patient does need to fol low up at [facility] for further trach supplies and management of his disease process. Patient was started on IV antibiotics, cultures were obtained, which remained negative. He did not have any signs of se psis. His white blood cell count remained stable. Patient was doing well. He did not have any furt her bleeding from his trach site, just some streaks of blood with sputum. Otherwise, the patient was doing well, tolerating his diet. No fevers. His symptoms had improved. No further swelling or red ness was seen. Patient was therefore cleared for discharge from ENT standpoint and was sent home in a stable condition. Activity: As tolerated. No driving or operating heavy machinery while on narcotics. Diet: Heart healthy. Followup: Follow up with primary care physician in 2-3 days. Follow up with ENT, Dr. Pardo and at [facility] in 2 weeks. Return to ER for worsening condition. Medications: As per medication reconciliation list. Finish up course of antibiotics at home. Discu ssed with Dr. Pardo. Cultures are negative. Patient to finish off course of Bactrim and doxy at h ome. Physical Examination: General: Awake, alert, and oriented x3, in not any acute distress. CV: S1, S2. Respiratory: Moving air well bilaterally. Abdomen: Abdomen is soft, nontender, nondistended. Positive bowel sounds. Extremities: No clubbing, cyanosis, or edema. Neurologic: Nonfocal. Total time spent discharging the patient was 36 minutes. SA/MODL Voice ID: [id number] Report ID: [id number]
== END 2019-02-13 13:42 | disposition home or self-care (01) | DRG 603 ==
LOC: ER 16:47 → ERHOLD 20:58 → 2ND 21:16
PROVIDERS: ADMIT Internal Medicine; ATTEND Internal Medicine
PROC: 0BJ08ZZ Inspection of Tracheobronchial Tree, Via Natural or Artificial Opening Endoscopic (ICD-10-PCS; principal; 2019-02-10)
DX: L03.221 Cellulitis of neck (principal); Z85.21 Personal history of malignant neoplasm of larynx; G89.4 Chronic pain syndrome; F32.9 Major depressive disorder, single episode, unspecified; J45.20 Mild intermittent asthma, uncomplicated; F17.210 Nicotine dependence, cigarettes, uncomplicated; Z93.0 Tracheostomy status; Z90.02 Acquired absence of larynx; Z23 Encounter for immunization
CPT/HCPCS: 36415; 70491; 71045; 71260; 80048; 80053; 80076; 80202; 81003; 83605; 83735; 84100; 84145; 85025; 85610; 85730; 87040; 90471; 94640; 94760; 96361; 96365; 96375; 99285; G0378; J0692; J1200; J2270; J2405; J2930; J3370; J7030; J7040; Q2035; Q9967

== ENCOUNTER 2019-03-07 11:13 | Emergency (ER) | payer MEDICAID ==
--- OUTSIDE RECORDS SUMMARY | 2019-03-07 11:15 | XMS REPORT ---
[...] End Status Dosage System Date Date Hydrocodone-Acet [facility] [id number] 10-325 MG Active 1 tablet aminophen Orally every 6 as needed hrs Citalopram [facility] 90118708065 20 MG Orally Active 1 tablet Hydrobromide Once a day Xanax [facility] [address]-56 1 MG Orally Active 1 tablet Once a day Zofran [facility] [address]-11 8 MG Orally Active 1 tablet Twice a day PRN Results No Known Results Summary Purpose eClinicalWorks Submission
--- OUTSIDE RECORDS SUMMARY | 2019-03-07 11:15 | XMS REPORT ---
[...] Dosage System Date Date BuPROPion HCl [facility] 18851933734 150 MG Orally Dec 16, Active 1 tablet ER (Smoking Once a day 2018 in the Det) morning Xanax [facility] 86243011420 1 MG Orally Once Active 1 tablet a day Zofran ND 84245578146 8 MG Orally Active 1 tablet Twice a day PRN Hydrocodone-Ac ND 09909362184 10-325 MG Orally Active 1 tablet etaminophen every 6 hrs as needed Results No Known Results Summary Purpose eClinicalWorks Submission
--- OUTSIDE RECORDS SUMMARY | 2019-03-07 11:15 | XMS REPORT ---
[...] Dosage System Date Date BuPROPion HCl [facility] 12160873547 150 MG Orally Dec 16, Active 1 tablet ER (Smoking Once a day 2018 in the Det) morning Xanax [facility] 54007407555 1 MG Orally Active 1 tablet Once a day Zofran ND 68111623530 8 MG Orally Active 1 tablet Twice a day PRN Hydrocodone-Ari ND 34607601594 10-325 MG Active 1 tablet taminophen Orally every 6 as needed hrs Citalopram ND 19825911620 20 MG Orally Inactive 1 tablet Hydrobromide Once a day Results No Known Results Summary Purpose eClinicalWorks Submission
--- OUTSIDE RECORDS SUMMARY | 2019-03-07 11:21 | XMS REPORT ---
:1970 Author Organization [facility] Pasquale Topete [address] [place] [id number] Care Team Providers Name Role Phone JENNIFER [...] Comments CREATININE (BEAKER) (test 0.63 mg/dL 0.57-1.25 upma=042) EGFR (BEAKER) (test 136 mL/min/1.73 sq m ESTIMATED GFR IS NOT xjky=8322) ACCURATE CREATININE CLEARANCE IN PREDICTING GLOMERULAR FILTRATION RATE. ESTIMATED GFR IS NOT APPLICABLE FOR DIALYSIS PATIENTS. WOUND CULTURE + GRAM [id number] 16:32:00 Test Item Value Reference Range Comments CULTURE (BEAKER) (test No growth xtdt=6063) GRAM STAIN RESULT (BEAKER) 2+ WBCs (test tugs=8916) GRAM STAIN RESULT (BEAKER) 1+ gram positive cocci in (test ayop=12497) pairs GRAM STAIN RESULT (BEAKER) <1+ gram variable rods (test lxbh=00924) VANCOMYCIN LEVEL, [id number] 23:37:00 Test Item Value Reference Range Comments VANCOMYCIN TROUGH (BEAKER) (test nbxs=544) 7.5 ug/mL 10.0-20.0 FL, ESOPH, SWALLOW FUNCTION, WITH CINE OR [id number] 18:19:00Cervical esophagram with GASTROGAFFINReason for exam:->status post [...] MDReport Verified Date/Time: 08/12/2018 18:19:29 Reading Location: [place] [id number] Ortho Consult Reading Room CBC W/PLT COUNT & AUTO [id number] 04: 39:00 Test Item Value Reference Range Comments WHITE BLOOD CELL COUNT (BEAKER) (test zrdq=926) 7.1 K/ L 3.5-10.5 RED BLOOD CELL COUNT (BEAKER) (test krsw=629) 3.77 M/ L 4.63-6.08 HEMOGLOBIN (BEAKER) (test rnjs=841) 10.9 GM/DL 13.7-17.5 HEMATOCRIT (BEAKER) (test mfwn=198) 35.7 % 40.1-51.0 MEAN CORPUSCULAR VOLUME (BEAKER) (test fqdo=298) 94.7 fL 79.0-92.2 MEAN CORPUSCULAR HEMOGLOBIN (BEAKER) (test 28.9 pg 25.7-32.2 watj=630) MEAN CORPUSCULAR HEMOGLOBIN CONC (BEAKER) (test 30.5 GM/DL 32.3-36.5 xxxh=835) RED CELL DISTRIBUTION WIDTH (BEAKER) (test 14.6 % 11.6-14.4 oksw=261) PLATELET COUNT (BEAKER) (test ecdh=737) 318 K/CU MM 150-450 MEAN PLATELET VOLUME (BEAKER) (test autz=013) 9.8 fL 9.4-12.4 NUCLEATED RED BLOOD CELLS (BEAKER) (test 0 /100 WBC 0-0 jzap=135) NEUTROPHILS RELATIVE PERCENT (BEAKER) (test 72 % xgcm=718) LYMPHOCYTES RELATIVE PERCENT (BEAKER) (test 10 % nweg=684) MONOCYTES RELATIVE PERCENT (BEAKER) (test 12 % rkzf=610) EOSINOPHILS RELATIVE PERCENT (BEAKER) (test 4 % mthy=426) BASOPHILS RELATIVE PERCENT (BEAKER) (test 1 % iqwa=256) NEUTROPHILS ABSOLUTE COUNT (BEAKER) (test 5.08 K/ L 1.78-5.38 xczm=229) LYMPHOCYTES ABSOLUTE COUNT (BEAKER) (test 0.68 K/ L 1.32-3.57 sfqn=014) MONOCYTES ABSOLUTE COUNT (BEAKER) (test 0.86 K/ L 0.30-0.82 efhu=601) EOSINOPHILS ABSOLUTE COUNT (BEAKER) (test 0.29 K/ L 0.04-0.54 kapr=235) BASOPHILS ABSOLUTE COUNT (BEAKER) (test 0.04 K/ L 0.01-0.08 prxa=194) IMMATURE GRANULOCYTES-RELATIVE PERCENT (BEAKER) 1 % 0-1 (test obuq=1417) TSH/FREE T4 IF [id number] 18:11:00 Test Item Value Reference Range Comments THYROID STIMULATING HORMONE (BEAKER) (test 0.75 uIU/mL 0.35-4.94 eoco=400) CBC W/PLT COUNT & AUTO [id number] 17:31:00 Test Item Value Reference Range Comments WHITE BLOOD CELL COUNT (BEAKER) (test kcmn=667) 9.2 K/ L 3.5-10.5 RED BLOOD CELL COUNT (BEAKER) (test lzfw=481) 3.78 M/ L 4.63-6.08 HEMOGLOBIN (BEAKER) (test vcig=165) 11.0 GM/DL 13.7-17.5 HEMATOCRIT (BEAKER) (test ikje=697) 35.4 % 40.1-51.0 MEAN CORPUSCULAR VOLUME (BEAKER) (test sfgh=207) 93.7 fL 79.0-92.2 MEAN CORPUSCULAR HEMOGLOBIN (BEAKER) (test 29.1 pg 25.7-32.2 bjlr=011) MEAN CORPUSCULAR HEMOGLOBIN CONC (BEAKER) (test 31.1 GM/DL 32.3-36.5 qcoa=235) RED CELL DISTRIBUTION WIDTH (BEAKER) (test 14.7 % 11.6-14.4 ihfa=826) PLATELET COUNT (BEAKER) (test xewf=706) 323 K/CU MM 150-450 MEAN PLATELET VOLUME (BEAKER) (test pamp=011) 9.6 fL 9.4-12.4 NUCLEATED RED BLOOD CELLS (BEAKER) (test 0 /100 WBC 0-0 flgb=467) NEUTROPHILS RELATIVE PERCENT (BEAKER) (test 75 % pbfr=889) LYMPHOCYTES RELATIVE PERCENT (BEAKER) (test 9 % dyxu=214) MONOCYTES RELATIVE PERCENT (BEAKER) (test 12 % xxbr=914) EOSINOPHILS RELATIVE PERCENT (BEAKER) (test 3 % sqho=257) BASOPHILS RELATIVE PERCENT (BEAKER) (test 0 % zhie=264) NEUTROPHILS ABSOLUTE COUNT (BEAKER) (test 6.86 K/ L 1.78-5.38 ptit=730) LYMPHOCYTES ABSOLUTE COUNT (BEAKER) (test 0.81 K/ L 1.32-3.57 krbo=890) MONOCYTES ABSOLUTE COUNT (BEAKER) (test 1.13 K/ L 0.30-0.82 peww=056) EOSINOPHILS ABSOLUTE COUNT (BEAKER) (test 0.24 K/ L 0.04-0.54 gmce=465) BASOPHILS ABSOLUTE COUNT (BEAKER) (test 0.04 K/ L 0.01-0.08 cukf=689) IMMATURE GRANULOCYTES-RELATIVE PERCENT (BEAKER) 1 % 0-1 (test ozfw=9313) TISSUE [id number] 10:26:00Surgical Pathology Report Case: [id number] Authorizing Provider: Jennifer Fraire MD Collected: 07/14/2018 1023 Ordering Location: [facility] Received: 07/14/2018 1029 SERVICES Pathologist: [...] cannot be determined from the submitted specimen(s) [id number] X3 , 77976, 76557, 46799 X2, 08949 X 4, 73695 x1, 73844 [id number] 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 Build Master sections are submitted as follows: C6 - [...] shows ulcer and granulation tissue. On C19, Anna-8 positivity confirms portion of thyroidtissue present. On [...] stains. Immunohistochemistry technical testing was performed at [facility], Pathology Laboratory where it was developed [...] clinical laboratory testing.CBC W/PLT COUNT & AUTO [id number] 09:34:00 Test Item Value Reference Range Comments WHITE BLOOD CELL COUNT (BEAKER) (test ziyc=314) 10.8 K/ L 3.5-10.5 RED BLOOD CELL COUNT (BEAKER) (test hrkp=127) 3.45 M/ L 4.63-6.08 HEMOGLOBIN (BEAKER) (test aiyu=159) 10.2 GM/DL 13.7-17.5 HEMATOCRIT (BEAKER) (test jbxi=662) 34.1 % 40.1-51.0 MEAN CORPUSCULAR VOLUME (BEAKER) (test ttii=614) 98.8 fL 79.0-92.2 MEAN CORPUSCULAR HEMOGLOBIN (BEAKER) (test 29.6 pg 25.7-32.2 xcyh=777) MEAN CORPUSCULAR HEMOGLOBIN CONC (BEAKER) (test 29.9 GM/DL 32.3-36.5 zolw=488) RED CELL DISTRIBUTION WIDTH (BEAKER) (test 15.7 % 11.6-14.4 dbxm=425) PLATELET COUNT (BEAKER) (test pyrq=609) 522 K/CU MM 150-450 MEAN PLATELET VOLUME (BEAKER) (test ebqa=803) 10.2 fL 9.4-12.4 NUCLEATED RED BLOOD CELLS (BEAKER) (test 0 /100 WBC 0-0 rcmg=878) (CELLAVISION MANUAL DIFF)2018-07-24 09:34:00 Test Item Value Reference Range Comments NEUTROPHILS - REL (CELLAVISION)(BEAKER) (test 80 % nfww=2206) LYMPHOCYTES - REL (CELLAVISION)(BEAKER) (test 2 % sxjg=1679) MONOCYTES - REL (CELLAVISION)(BEAKER) (test 15 % ooum=8313) EOSINOPHILS - REL (CELLAVISION)(BEAKER) (test 3 % snxe=7789) NEUTROPHILS - ABS (CELLAVISION)(BEAKER) (test 8.64 K/ul 1.78-5.38 ryjj=4211) LYMPHOCYTES - ABS (CELLAVISION)(BEAKER) (test 0.22 K/ul 1.32-3.57 ggqu=8422) MONOCYTES - ABS (CELLAVISION)(BEAKER) (test 1.62 K/uL 0.30-0.82 papl=6302) EOSINOPHILS - ABS (CELLAVISION)(BEAKER) (test 0.32 K/uL 0.04-0.54 ekbn=7686) TOTAL COUNTED (BEAKER) (test gstf=3909) 100 WBC MORPHOLOGY (BEAKER) (test xyln=376) Normal LARGE PLT(BEAKER) (test vvzs=0056) Present POLYCHROMATOPHILLIC RBCS(BEAKER) (test kuaz=144) 1+ few ARTIFACT (CELLAVISION)(BEAKER) (test lovr=0225) Present PLATELET CONCENTRATION (CELLAVISION)(BEAKER) (test Increased xebf=8686) Received comment: User comments: Slide comments:[id number] 05:40:00 Test Item Value Reference Range Comments PHOSPHORUS (BEAKER) (test span=869) 4.8 mg/dL 2.3-4.7 [id number] 05:40:00 Test Item Value Reference Range Comments MAGNESIUM (BEAKER) (test liic=752) 2.1 mg/dL 1.6-2.6 BASIC METABOLIC [id number] 05:40:00 Test Item Value Reference Range Comments SODIUM (BEAKER) (test 140 meq/L 136-145 zqoz=903) POTASSIUM (BEAKER) (test 4.0 meq/L 3.5-5.1 yikl=761) CHLORIDE (BEAKER) (test 99 meq/L 98-107 vugh=957) CO2 (BEAKER) (test 30 meq/L 22-29 amgm=737) BLOOD UREA NITROGEN 8 mg/dL 7-21 (BEAKER) (test uuee=988) CREATININE (BEAKER) (test 0.71 mg/dL 0.57-1.25 dflr=231) GLUCOSE RANDOM (BEAKER) 90 mg/dL 70-105 (test kmjb=598) CALCIUM (BEAKER) (test 8.8 mg/dL 8.4-10.2 vzvl=207) EGFR (BEAKER) (test 118 mL/min/1.73 sq m ESTIMATED GFR IS NOT umvc=7128) ACCURATE CREATININE CLEARANCE IN PREDICTING GLOMERULAR FILTRATION RATE. ESTIMATED GFR IS NOT APPLICABLE FOR DIALYSIS PATIENTS. CBC W/PLT COUNT & AUTO [id number] 11:50:00 Test Item Value Reference Range Comments WHITE BLOOD CELL COUNT (BEAKER) (test tvrw=017) 13.2 K/ L 3.5-10.5 RED BLOOD CELL COUNT (BEAKER) (test ypem=449) 3.41 M/ L 4.63-6.08 HEMOGLOBIN (BEAKER) (test uupg=274) 10.2 GM/DL 13.7-17.5 HEMATOCRIT (BEAKER) (test igmd=767) 33.2 % 40.1-51.0 MEAN CORPUSCULAR VOLUME (BEAKER) (test eody=528) 97.4 fL 79.0-92.2 MEAN CORPUSCULAR HEMOGLOBIN (BEAKER) (test 29.9 pg 25.7-32.2 giqs=522) MEAN CORPUSCULAR HEMOGLOBIN CONC (BEAKER) (test 30.7 GM/DL 32.3-36.5 nglt=369) RED CELL DISTRIBUTION WIDTH (BEAKER) (test 15.5 % 11.6-14.4 prwe=252) PLATELET COUNT (BEAKER) (test vycy=404) 473 K/CU MM 150-450 MEAN PLATELET VOLUME (BEAKER) (test qqtx=858) 10.0 fL 9.4-12.4 NUCLEATED RED BLOOD CELLS (BEAKER) (test 0 /100 WBC 0-0 gvjh=789) (CELLAVISION MANUAL DIFF)2018-07-23 11:50:00 Test Item Value Reference Range Comments NEUTROPHILS - REL (CELLAVISION)(BEAKER) (test 80 % zpbe=8571) LYMPHOCYTES - REL (CELLAVISION)(BEAKER) (test 8 % pppy=0690) MONOCYTES - REL (CELLAVISION)(BEAKER) (test 4 % fhyx=3086) EOSINOPHILS - REL (CELLAVISION)(BEAKER) (test 1 % qtcl=0034) MYELOCYTES - REL (CELLAVISION)(BEAKER) (test 2 % 0-0 kmbo=5065) BANDS - REL (CELLAVISION)(BEAKER) (test 4 % 0-10 qtqk=4120) NEUTROPHILS - ABS (CELLAVISION)(BEAKER) (test 10.56 K/ul 1.78-5.38 ozca=7471) LYMPHOCYTES - ABS (CELLAVISION)(BEAKER) (test 1.06 K/ul 1.32-3.57 qdxq=5854) MONOCYTES - ABS (CELLAVISION)(BEAKER) (test 0.53 K/uL 0.30-0.82 qwej=8506) EOSINOPHILS - ABS (CELLAVISION)(BEAKER) (test 0.13 K/uL 0.04-0.54 dynn=2486) MYELOCYTES-ABS (CELLAVISION)(BEAKER) (test 0.26 K/uL 0.00-0.00 unre=9404) BANDS - ABS (CELLAVISION)(BEAKER) (test 0.53 K/uL 0.00-0.80 qmhb=3420) TOTAL COUNTED (BEAKER) (test fpwj=1904) 100 WBC MORPHOLOGY (BEAKER) (test glme=763) Normal PLT MORPHOLOGY (BEAKER) (test rgvv=459) Normal ANISOCYTOSIS (BEAKER) (test bnrj=473) 2+ moderate MICROCYTES (BEAKER) (test xamz=053) 1+ few ARTIFACT (CELLAVISION)(BEAKER) (test rdxm=0146) Present PLATELET CONCENTRATION (CELLAVISION)(BEAKER) Increased (test gjey=1915) Received comment: User comments: Slide comments:SPUTUM CULTURE + GRAM [id number] 10:46:00 Test Item Value Reference Range Comments CULTURE (BEAKER) (test <1+ Normal respiratory maximo yfig=5939) present GRAM STAIN RESULT (BEAKER) <1+ White blood cells seen (test lcst=8793) GRAM STAIN RESULT (BEAKER) 0-5 epithelial cells (test bsrd=34489) GRAM STAIN RESULT (BEAKER) No organisms seen (test kktc=90073) [id number] 06:07:00 Test Item Value Reference Range Comments PHOSPHORUS (BEAKER) (test nbgt=472) 4.6 mg/dL 2.3-4.7 [id number] 06:07:00 Test Item Value Reference Range Comments MAGNESIUM (BEAKER) (test znpb=486) 2.0 mg/dL 1.6-2.6 BASIC METABOLIC [id number] 06:07:00 Test Item Value Reference Range Comments SODIUM (BEAKER) (test 140 meq/L 136-145 rzqs=959) POTASSIUM (BEAKER) (test 4.3 meq/L 3.5-5.1 poiy=221) CHLORIDE (BEAKER) (test 101 meq/L 98-107 uuew=728) CO2 (BEAKER) (test 31 meq/L 22-29 wepl=973) BLOOD UREA NITROGEN 10 mg/dL 7-21 (BEAKER) (test fumt=683) CREATININE (BEAKER) (test 0.67 mg/dL 0.57-1.25 mdkl=926) GLUCOSE RANDOM (BEAKER) 111 mg/dL 70-105 (test iuzr=387) CALCIUM (BEAKER) (test 8.7 mg/dL 8.4-10.2 gxfy=001) EGFR (BEAKER) (test 127 mL/min/1.73 sq m ESTIMATED GFR IS NOT luoc=2653) ACCURATE CREATININE CLEARANCE IN PREDICTING GLOMERULAR FILTRATION RATE. ESTIMATED GFR IS NOT APPLICABLE FOR DIALYSIS PATIENTS. VANCOMYCIN LEVEL, [id number] 23:12:00 Test Item Value Reference Range Comments VANCOMYCIN TROUGH (BEAKER) (test xytv=673) 3.2 ug/mL 10.0-20.0 POCT-GLUCOSE [id number] 17:57:00 Test Item Value Reference Range Comments POC-GLUCOSE METER (BEAKER) 105 mg/dL 70-110 TESTED AT [address] (test tbnh=4292) [facility] [address] CBC W/PLT COUNT & AUTO [id number] 13:00:00 Test Item Value Reference Range Comments WHITE BLOOD CELL COUNT (BEAKER) (test pspj=668) 12.5 K/ L 3.5-10.5 RED BLOOD CELL COUNT (BEAKER) (test xauh=284) 3.46 M/ L 4.63-6.08 HEMOGLOBIN (BEAKER) (test xbnr=727) 10.4 GM/DL 13.7-17.5 HEMATOCRIT (BEAKER) (test vlfj=311) 33.5 % 40.1-51.0 MEAN CORPUSCULAR VOLUME (BEAKER) (test aowl=593) 96.8 fL 79.0-92.2 MEAN CORPUSCULAR HEMOGLOBIN (BEAKER) (test 30.1 pg 25.7-32.2 awjp=768) MEAN CORPUSCULAR HEMOGLOBIN CONC (BEAKER) (test 31.0 GM/DL 32.3-36.5 heui=316) RED CELL DISTRIBUTION WIDTH (BEAKER) (test 15.4 % 11.6-14.4 lrxe=533) PLATELET COUNT (BEAKER) (test wosl=354) 425 K/CU MM 150-450 MEAN PLATELET VOLUME (BEAKER) (test exqc=104) 10.1 fL 9.4-12.4 NUCLEATED RED BLOOD CELLS (BEAKER) (test 0 /100 WBC 0-0 cxdm=194) (CELLAVISION MANUAL DIFF)2018-07-22 13:00:00 Test Item Value Reference Range Comments NEUTROPHILS - REL (CELLAVISION)(BEAKER) (test 80 % kxcd=3225) LYMPHOCYTES - REL (CELLAVISION)(BEAKER) (test 4 % rfsd=3671) MONOCYTES - REL (CELLAVISION)(BEAKER) (test 6 % uoat=5906) EOSINOPHILS - REL (CELLAVISION)(BEAKER) (test 6 % habj=4913) BASOPHILS - REL (CELLAVISION)(BEAKER) (test 1 % wctm=2757) MYELOCYTES - REL (CELLAVISION)(BEAKER) (test 3 % 0-0 rski=9615) NEUTROPHILS - ABS (CELLAVISION)(BEAKER) (test 10.00 K/ul 1.78-5.38 qfhr=3909) LYMPHOCYTES - ABS (CELLAVISION)(BEAKER) (test 0.50 K/ul 1.32-3.57 zmth=5689) MONOCYTES - ABS (CELLAVISION)(BEAKER) (test 0.75 K/uL 0.30-0.82 znrg=6055) EOSINOPHILS - ABS (CELLAVISION)(BEAKER) (test 0.75 K/uL 0.04-0.54 rkdm=9812) BASOPHILS - ABS (CELLAVISION)(BEAKER) (test 0.13 K/uL 0.01-0.08 eecr=7570) MYELOCYTES-ABS (CELLAVISION)(BEAKER) (test 0.38 K/uL 0.00-0.00 wbql=7796) TOTAL COUNTED (BEAKER) (test oarv=8088) 100 WBC MORPHOLOGY (BEAKER) (test azfh=576) Normal PLT MORPHOLOGY (BEAKER) (test gvqu=417) Normal POLYCHROMATOPHILLIC RBCS(BEAKER) (test vzqs=020) 1+ few ANISOCYTOSIS (BEAKER) (test woue=841) 1+ few MACROCYTES (BEAKER) (test tjgb=866) 1+ few POIKILOCYTES (BEAKER) (test thua=796) 2+ moderate ARTIFACT (CELLAVISION)(BEAKER) (test yajo=9268) Present PLATELET CONCENTRATION (CELLAVISION)(BEAKER) Adequate (test uqky=6011) Received comment: User comments: Slide comments:POCT-GLUCOSE [id number] 12: 50:00 Test Item Value Reference Range Comments POC-GLUCOSE METER (BEAKER) 117 mg/dL 70-110 TESTED AT [facility] [address] [facility] (test zhwu=6211) [facility] [address] [id number] 07:00:00 Test Item Value Reference Range Comments PHOSPHORUS (BEAKER) (test trgx=883) 4.2 mg/dL 2.3-4.7 [id number] 07:00:00 Test Item Value Reference Range Comments MAGNESIUM (BEAKER) (test yajr=483) 1.9 mg/dL 1.6-2.6 BASIC METABOLIC [id number] 07:00:00 Test Item Value Reference Range Comments SODIUM (BEAKER) (test 140 meq/L 136-145 fpsg=223) POTASSIUM (BEAKER) (test 4.0 meq/L 3.5-5.1 vzaw=308) CHLORIDE (BEAKER) (test 101 meq/L 98-107 sbai=678) CO2 (BEAKER) (test 32 meq/L 22-29 cbif=696) BLOOD UREA NITROGEN 9 mg/dL 7-21 (BEAKER) (test vdaf=138) CREATININE (BEAKER) (test 0.62 mg/dL 0.57-1.25 hkbi=036) GLUCOSE RANDOM (BEAKER) 104 mg/dL 70-105 (test trbh=917) CALCIUM (BEAKER) (test 8.4 mg/dL 8.4-10.2 qjll=907) EGFR (BEAKER) (test 138 mL/min/1.73 sq m ESTIMATED GFR IS NOT uipg=0789) ACCURATE CREATININE CLEARANCE IN PREDICTING GLOMERULAR FILTRATION RATE. ESTIMATED GFR IS NOT APPLICABLE FOR DIALYSIS PATIENTS. CBC W/PLT COUNT & AUTO [id number] 10:11:00 Test Item Value Reference Range Comments WHITE BLOOD CELL COUNT (BEAKER) (test wrqu=526) 10.8 K/ L 3.5-10.5 RED BLOOD CELL COUNT (BEAKER) (test zslz=550) 3.48 M/ L 4.63-6.08 HEMOGLOBIN (BEAKER) (test lsnt=609) 10.6 GM/DL 13.7-17.5 HEMATOCRIT (BEAKER) (test gvya=764) 33.9 % 40.1-51.0 MEAN CORPUSCULAR VOLUME (BEAKER) (test okhm=691) 97.4 fL 79.0-92.2 MEAN CORPUSCULAR HEMOGLOBIN (BEAKER) (test 30.5 pg 25.7-32.2 lhfr=065) MEAN CORPUSCULAR HEMOGLOBIN CONC (BEAKER) (test 31.3 GM/DL 32.3-36.5 epoh=495) RED CELL DISTRIBUTION WIDTH (BEAKER) (test 15.4 % 11.6-14.4 tshz=738) PLATELET COUNT (BEAKER) (test fomh=568) 431 K/CU MM 150-450 MEAN PLATELET VOLUME (BEAKER) (test jybk=352) 10.0 fL 9.4-12.4 NUCLEATED RED BLOOD CELLS (BEAKER) (test 0 /100 WBC 0-0 hirf=670) (CELLAVISION MANUAL DIFF)2018-07-21 10:11:00 Test Item Value Reference Range Comments NEUTROPHILS - REL (CELLAVISION)(BEAKER) (test 77 % gxeo=4922) LYMPHOCYTES - REL (CELLAVISION)(BEAKER) (test 3 % cwex=3404) MONOCYTES - REL (CELLAVISION)(BEAKER) (test 7 % sjji=7972) EOSINOPHILS - REL (CELLAVISION)(BEAKER) (test 3 % apup=3409) MYELOCYTES - REL (CELLAVISION)(BEAKER) (test 4 % 0-0 tvfc=6289) PROMYELOCYTES - REL (CELLAVSION)(BEAKER) (test 1 % 0-0 prgw=7580) BANDS - REL (CELLAVISION)(BEAKER) (test 5 % 0-10 hccm=1802) NEUTROPHILS - ABS (CELLAVISION)(BEAKER) (test 8.32 K/ul 1.78-5.38 fdxd=8167) LYMPHOCYTES - ABS (CELLAVISION)(BEAKER) (test 0.32 K/ul 1.32-3.57 rciv=6598) MONOCYTES - ABS (CELLAVISION)(BEAKER) (test 0.76 K/uL 0.30-0.82 efpb=9524) EOSINOPHILS - ABS (CELLAVISION)(BEAKER) (test 0.32 K/uL 0.04-0.54 ysrl=9779) MYELOCYTES-ABS (CELLAVISION)(BEAKER) (test 0.43 K/uL 0.00-0.00 vsmu=0166) PROMYELOCYTES - ABS (CELLAVISION)(BEAKER) (test 0.11 K/uL 0.00-0.00 jcre=9342) BANDS - ABS (CELLAVISION)(BEAKER) (test 0.54 K/uL 0.00-0.80 mjxf=7216) TOTAL COUNTED (BEAKER) (test mdfw=2615) 100 WBC MORPHOLOGY (BEAKER) (test dkgt=066) Normal PLT MORPHOLOGY (BEAKER) (test lpml=450) Normal ANISOCYTOSIS (BEAKER) (test htfy=716) 2+ moderate MICROCYTES (BEAKER) (test cjzb=375) 2+ moderate ARTIFACT (CELLAVISION)(BEAKER) (test anrh=8862) Present PLATELET CONCENTRATION (CELLAVISION)(BEAKER) Adequate (test acgu=4818) Received comment: User comments: Slide comments:[id number] 05:39:00 Test Item Value Reference Range Comments PHOSPHORUS (BEAKER) (test prpa=935) 5.1 mg/dL 2.3-4.7 [id number] 05:39:00 Test Item Value Reference Range Comments MAGNESIUM (BEAKER) (test door=711) 2.0 mg/dL 1.6-2.6 BASIC METABOLIC [id number] 05:39:00 Test Item Value Reference Range Comments SODIUM (BEAKER) (test 139 meq/L 136-145 jlpm=205) POTASSIUM (BEAKER) (test 4.3 meq/L 3.5-5.1 tkny=097) CHLORIDE (BEAKER) (test 100 meq/L 98-107 oghq=978) CO2 (BEAKER) (test 29 meq/L 22-29 ugtu=786) BLOOD UREA NITROGEN 10 mg/dL 7-21 (BEAKER) (test jfky=655) CREATININE (BEAKER) (test 0.64 mg/dL 0.57-1.25 grjw=204) GLUCOSE RANDOM (BEAKER) 97 mg/dL 70-105 (test xgtf=817) CALCIUM (BEAKER) (test 8.6 mg/dL 8.4-10.2 youh=747) EGFR (BEAKER) (test 133 mL/min/1.73 sq m ESTIMATED GFR IS NOT xccn=1869) ACCURATE CREATININE CLEARANCE IN PREDICTING GLOMERULAR FILTRATION RATE. ESTIMATED GFR IS NOT APPLICABLE FOR DIALYSIS PATIENTS. VANCOMYCIN LEVEL, [id number] 23:38:00 Test Item Value Reference Range Comments VANCOMYCIN TROUGH (BEAKER) (test kaut=569) 5.5 ug/mL 10.0-20.0 CBC W/PLT COUNT & AUTO [id number] 10:44:00 Test Item Value Reference Range Comments WHITE BLOOD CELL COUNT (BEAKER) (test drtm=119) 14.3 K/ L 3.5-10.5 RED BLOOD CELL COUNT (BEAKER) (test egyl=363) 3.43 M/ L 4.63-6.08 HEMOGLOBIN (BEAKER) (test rdhm=769) 10.4 GM/DL 13.7-17.5 HEMATOCRIT (BEAKER) (test yuks=815) 33.5 % 40.1-51.0 MEAN CORPUSCULAR VOLUME (BEAKER) (test xixq=182) 97.7 fL 79.0-92.2 MEAN CORPUSCULAR HEMOGLOBIN (BEAKER) (test 30.3 pg 25.7-32.2 kcfz=102) MEAN CORPUSCULAR HEMOGLOBIN CONC (BEAKER) (test 31.0 GM/DL 32.3-36.5 qluq=208) RED CELL DISTRIBUTION WIDTH (BEAKER) (test 15.7 % 11.6-14.4 ksap=485) PLATELET COUNT (BEAKER) (test yeol=784) 402 K/CU MM 150-450 MEAN PLATELET VOLUME (BEAKER) (test qkbg=163) 10.6 fL 9.4-12.4 NUCLEATED RED BLOOD CELLS (BEAKER) (test 0 /100 WBC 0-0 pawu=529) (CELLAVISION MANUAL DIFF)[id number] 10:44:00 Test Item Value Reference Range Comments NEUTROPHILS - REL (CELLAVISION)(BEAKER) (test 83 % axgp=9644) LYMPHOCYTES - REL (CELLAVISION)(BEAKER) (test 2 % qsum=5473) MONOCYTES - REL (CELLAVISION)(BEAKER) (test 9 % dojm=9202) EOSINOPHILS - REL (CELLAVISION)(BEAKER) (test 3 % ijld=2918) MYELOCYTES - REL (CELLAVISION)(BEAKER) (test 1 % 0-0 cava=8393) BANDS - REL (CELLAVISION)(BEAKER) (test 2 % 0-10 itih=4484) NEUTROPHILS - ABS (CELLAVISION)(BEAKER) (test 11.87 K/ul 1.78-5.38 qjjl=6920) LYMPHOCYTES - ABS (CELLAVISION)(BEAKER) (test 0.29 K/ul 1.32-3.57 kbvy=8593) MONOCYTES - ABS (CELLAVISION)(BEAKER) (test 1.29 K/uL 0.30-0.82 oxha=1248) EOSINOPHILS - ABS (CELLAVISION)(BEAKER) (test 0.43 K/uL 0.04-0.54 xdxk=8631) MYELOCYTES-ABS (CELLAVISION)(BEAKER) (test 0.14 K/uL 0.00-0.00 mfsf=1047) BANDS - ABS (CELLAVISION)(BEAKER) (test 0.29 K/uL 0.00-0.80 gyjz=5925) TOTAL COUNTED (BEAKER) (test nkhu=2643) 100 WBC MORPHOLOGY (BEAKER) (test rrzx=108) Normal GIANT PLATELETS (BEAKER) (test sxzh=960) Present POLYCHROMATOPHILLIC RBCS(BEAKER) (test rsws=134) 1+ few ANISOCYTOSIS (BEAKER) (test gaiz=006) 1+ few ARTIFACT (CELLAVISION)(BEAKER) (test eesn=2253) Present PLATELET CONCENTRATION (CELLAVISION)(BEAKER) Adequate (test ivkp=7473) Received comment: User comments: Slide comments:[id number] 06:44:00 Test Item Value Reference Range Comments MAGNESIUM (BEAKER) (test 2.1 mg/dL 1.6-2.6 Specimen slightly hemolyzed cvxt=883) [id number] 06:44:00 Test Item Value Reference Range Comments PHOSPHORUS (BEAKER) (test 5.0 mg/dL 2.3-4.7 Specimen slightly hemolyzed cicz=205) BASIC METABOLIC [id number] 06:44:00 Test Item Value Reference Range Comments SODIUM (BEAKER) (test 138 meq/L 136-145 rgxz=492) POTASSIUM (BEAKER) (test 4.6 meq/L 3.5-5.1 Specimen slightly ebzr=231) hemolyzed CHLORIDE (BEAKER) (test 99 meq/L 98-107 tgzw=129) CO2 (BEAKER) (test 30 meq/L 22-29 dhfc=505) BLOOD UREA NITROGEN 10 mg/dL 7-21 (BEAKER) (test pfhg=675) CREATININE (BEAKER) (test 0.67 mg/dL 0.57-1.25 Specimen slightly topt=460) hemolyzed GLUCOSE RANDOM (BEAKER) 87 mg/dL 70-105 (test fhac=515) CALCIUM (BEAKER) (test 8.7 mg/dL 8.4-10.2 djcm=202) EGFR (BEAKER) (test 127 mL/min/1.73 sq m ESTIMATED GFR IS NOT rjol=1869) ACCURATE CREATININE CLEARANCE IN PREDICTING GLOMERULAR FILTRATION RATE. ESTIMATED GFR IS NOT APPLICABLE FOR DIALYSIS PATIENTS. [id number] 06:06:00 Test Item Value Reference Range Comments PROTIME (BEAKER) (test jjms=330) 15.6 seconds 11.7-14.7 INR (BEAKER) (test yxub=270) 1.2 <=5.9 PARTIAL THROMBOPLASTIN TIME (BEAKER) (test 46.0 seconds 22.5-36.0 ifiw=076) RECOMMENDED COUMADIN/WARFARIN INR THERAPY RANGESSTANDARD DOSE: 2.0 - 3.0 Includes: PROPHYLAXIS forvenous thrombosis, systemic embolization; TREATMENT for venous thrombosis and/or pulmonary embolus.HIGH RISK: Target INR is 2.5-3.5 for patients with mechanical heart valves.SPUTUM CULTURE + GRAM [id number] 14:44:00 Test Item Value Reference Range Comments CULTURE (BEAKER) (test Oropharyngeal contamination, eukh=5745) specimen rejected. Recollect requested. GRAM STAIN RESULT (BEAKER) <1+ WBCs (test okwx=3745) GRAM STAIN RESULT (BEAKER) >25 epithelial cells (test duck=14007) GRAM STAIN RESULT (BEAKER) <1+ gram positive rods (test cerk=42258) RAD, CHEST, 1 VIEW, NON [id number] 13:59:00Reason for exam:-> leukocytosis in setting of [...] MDReport Verified Date/Time: 07/19/2018 13:59:21 Reading Location: [address] Consult Reading Room URINALYSIS W/ REFLEX URINE [id number] 11:14:00 Test Item Value Reference Range Comments COLOR (BEAKER) (test suja=975) Light Yellow CLARITY (BEAKER) (test vhxf=124) Clear SPECIFIC GRAVITY UA (BEAKER) (test sacj=784) 1.013 1.001-1.035 PH UA (BEAKER) (test abal=042) 6.0 5.0-8.0 PROTEIN UA (BEAKER) (test uiix=944) Negative Negative GLUCOSE UA (BEAKER) (test remq=275) Negative Negative KETONES UA (BEAKER) (test awds=172) Negative Negative BILIRUBIN UA (BEAKER) (test kdfc=062) Negative Negative BLOOD UA (BEAKER) (test hvpb=307) Trace Negative NITRITE UA (BEAKER) (test cfde=585) Negative Negative LEUKOCYTE ESTERASE UA (BEAKER) (test ggxa=281) Small Negative UROBILINOGEN UA (BEAKER) (test sdkj=420) 0.2 mg/dL 0.2-1.0 RBC UA (BEAKER) (test ieso=689) 2 /HPF WBC UA (BEAKER) (test oaet=760) 15 /HPF MUCUS (BEAKER) (test phzi=5359) Occasional HYALINE CASTS (BEAKER) (test qtdf=368) 2 /LPF SOURCE(BEAKER) (test wekp=7667) POCT-GLUCOSE [id number] 06:46:00 Test Item Value Reference Range Comments POC-GLUCOSE METER (BEAKER) 102 mg/dL 70-110 TESTED AT [facility] [address] (test krjo=4102) [facility] [address] [id number] 04:52:00 Test Item Value Reference Range Comments PHOSPHORUS (BEAKER) (test wkdd=091) 4.1 mg/dL 2.3-4.7 [id number] 04:52:00 Test Item Value Reference Range Comments MAGNESIUM (BEAKER) (test etmv=886) 1.8 mg/dL 1.6-2.6 BASIC METABOLIC [id number] 04:52:00 Test Item Value Reference Range Comments SODIUM (BEAKER) (test 138 meq/L 136-145 ztnu=015) POTASSIUM (BEAKER) (test 3.7 meq/L 3.5-5.1 fzkc=338) CHLORIDE (BEAKER) (test 101 meq/L 98-107 vghy=706) CO2 (BEAKER) (test 26 meq/L 22-29 pkoi=728) BLOOD UREA NITROGEN 10 mg/dL 7-21 (BEAKER) (test jrqi=737) CREATININE (BEAKER) (test 0.67 mg/dL 0.57-1.25 zuof=579) GLUCOSE RANDOM (BEAKER) 111 mg/dL 70-105 (test dlnu=678) CALCIUM (BEAKER) (test 8.5 mg/dL 8.4-10.2 yomm=320) EGFR (BEAKER) (test 127 mL/min/1.73 sq m ESTIMATED GFR IS NOT drbv=1366) ACCURATE CREATININE CLEARANCE IN PREDICTING GLOMERULAR FILTRATION RATE. ESTIMATED GFR IS NOT APPLICABLE FOR DIALYSIS PATIENTS. CBC W/PLT COUNT & AUTO [id number] 04:25:00 Test Item Value Reference Range Comments WHITE BLOOD CELL COUNT (BEAKER) (test hpka=419) 13.6 K/ L 3.5-10.5 RED BLOOD CELL COUNT (BEAKER) (test xvxu=286) 3.58 M/ L 4.63-6.08 HEMOGLOBIN (BEAKER) (test hydh=384) 10.8 GM/DL 13.7-17.5 HEMATOCRIT (BEAKER) (test jrpx=947) 34.8 % 40.1-51.0 MEAN CORPUSCULAR VOLUME (BEAKER) (test jvng=413) 97.2 fL 79.0-92.2 MEAN CORPUSCULAR HEMOGLOBIN (BEAKER) (test 30.2 pg 25.7-32.2 crrf=666) MEAN CORPUSCULAR HEMOGLOBIN CONC (BEAKER) (test 31.0 GM/DL 32.3-36.5 cjbz=599) RED CELL DISTRIBUTION WIDTH (BEAKER) (test 15.1 % 11.6-14.4 ihsb=573) PLATELET COUNT (BEAKER) (test liqa=863) 392 K/CU MM 150-450 MEAN PLATELET VOLUME (BEAKER) (test fhnk=852) 10.0 fL 9.4-12.4 NUCLEATED RED BLOOD CELLS (BEAKER) (test 0 /100 WBC 0-0 ovpd=853) NEUTROPHILS RELATIVE PERCENT (BEAKER) (test 78 % gbsw=615) LYMPHOCYTES RELATIVE PERCENT (BEAKER) (test 5 % rzuy=944) MONOCYTES RELATIVE PERCENT (BEAKER) (test 10 % aqpa=168) EOSINOPHILS RELATIVE PERCENT (BEAKER) (test 2 % mgnf=265) BASOPHILS RELATIVE PERCENT (BEAKER) (test 1 % byaq=185) NEUTROPHILS ABSOLUTE COUNT (BEAKER) (test 10.68 K/ L 1.78-5.38 vaam=572) LYMPHOCYTES ABSOLUTE COUNT (BEAKER) (test 0.68 K/ L 1.32-3.57 kxah=620) MONOCYTES ABSOLUTE COUNT (BEAKER) (test 1.40 K/ L 0.30-0.82 cjlv=023) EOSINOPHILS ABSOLUTE COUNT (BEAKER) (test 0.31 K/ L 0.04-0.54 hvcf=639) BASOPHILS ABSOLUTE COUNT (BEAKER) (test 0.08 K/ L 0.01-0.08 rypg=013) IMMATURE GRANULOCYTES-RELATIVE PERCENT (BEAKER) 3 % 0-1 (test fohb=0822) [id number] 04:11:00 Test Item Value Reference Range Comments PROTIME (BEAKER) (test silh=541) 15.8 seconds 11.7-14.7 INR (BEAKER) (test sjtw=030) 1.2 <=5.9 PARTIAL THROMBOPLASTIN TIME (BEAKER) (test 48.2 seconds 22.5-36.0 ntdv=131) RECOMMENDED COUMADIN/WARFARIN INR THERAPY RANGESSTANDARD DOSE: 2.0 - 3.0 Includes: PROPHYLAXIS forvenous thrombosis, systemic embolization; TREATMENT for venous thrombosis and/or pulmonary embolus.HIGH RISK: Target INR is 2.5-3.5 for patients with mechanical heart valves.POCT-GLUCOSE [id number] 00:11:00 Test Item Value Reference Range Comments POC-GLUCOSE METER (BEAKER) 76 mg/dL 70-110 TESTED AT [address] (test fdwm=7247) [place] [address] POCT-GLUCOSE [id number] 17:53:00 Test Item Value Reference Range Comments POC-GLUCOSE METER (BEAKER) 94 mg/dL 70-110 TESTED AT [address] (test sfyd=8878) [place] [address] T4, [id number] 11:41:00 Test Item Value Reference Range Comments FREE T4 (BEAKER) (test wtyb=668) 0.90 ng/dL 0.70-1.48 POCT-GLUCOSE [id number] 11:35:00 Test Item Value Reference Range Comments POC-GLUCOSE METER (BEAKER) 103 mg/dL 70-110 TESTED AT [address] (test hgyi=3612) [place] [address] TSH/FREE T4 IF [id number] 10:50:00 Test Item Value Reference Range Comments THYROID STIMULATING HORMONE (BEAKER) (test 14.67 uIU/mL 0.35-4.94 fuup=605) POCT-GLUCOSE [id number] 06:42:00 Test Item Value Reference Range Comments POC-GLUCOSE METER (BEAKER) 111 mg/dL 70-110 TESTED AT [address] (test awmn=3918) [place] [address] CBC W/PLT COUNT & AUTO [id number] 05:20:00 Test Item Value Reference Range Comments WHITE BLOOD CELL COUNT (BEAKER) (test qpbq=029) 11.4 K/ L 3.5-10.5 RED BLOOD CELL COUNT (BEAKER) (test omqf=236) 3.40 M/ L 4.63-6.08 HEMOGLOBIN (BEAKER) (test mdds=575) 10.3 GM/DL 13.7-17.5 HEMATOCRIT (BEAKER) (test ufmz=278) 33.6 % 40.1-51.0 MEAN CORPUSCULAR VOLUME (BEAKER) (test wwxs=881) 98.8 fL 79.0-92.2 MEAN CORPUSCULAR HEMOGLOBIN (BEAKER) (test 30.3 pg 25.7-32.2 mque=776) MEAN CORPUSCULAR HEMOGLOBIN CONC (BEAKER) (test 30.7 GM/DL 32.3-36.5 ersc=262) RED CELL DISTRIBUTION WIDTH (BEAKER) (test 15.3 % 11.6-14.4 jfsz=617) PLATELET COUNT (BEAKER) (test umzf=748) 365 K/CU MM 150-450 MEAN PLATELET VOLUME (BEAKER) (test lnbg=401) 10.2 fL 9.4-12.4 NUCLEATED RED BLOOD CELLS (BEAKER) (test 0 /100 WBC 0-0 vrfm=067) NEUTROPHILS RELATIVE PERCENT (BEAKER) (test 80 % rjdk=674) LYMPHOCYTES RELATIVE PERCENT (BEAKER) (test 6 % zzjc=825) MONOCYTES RELATIVE PERCENT (BEAKER) (test 9 % yfds=907) EOSINOPHILS RELATIVE PERCENT (BEAKER) (test 3 % zhyo=652) BASOPHILS RELATIVE PERCENT (BEAKER) (test 0 % bfxw=815) NEUTROPHILS ABSOLUTE COUNT (BEAKER) (test 9.06 K/ L 1.78-5.38 ceec=270) LYMPHOCYTES ABSOLUTE COUNT (BEAKER) (test 0.72 K/ L 1.32-3.57 cxmc=539) MONOCYTES ABSOLUTE COUNT (BEAKER) (test 1.06 K/ L 0.30-0.82 ockf=088) EOSINOPHILS ABSOLUTE COUNT (BEAKER) (test 0.28 K/ L 0.04-0.54 faxk=465) BASOPHILS ABSOLUTE COUNT (BEAKER) (test 0.05 K/ L 0.01-0.08 aclo=161) IMMATURE GRANULOCYTES-RELATIVE PERCENT (BEAKER) 2 % 0-1 (test okkn=2810) [id number] 05:00:00 Test Item Value Reference Range Comments PHOSPHORUS (BEAKER) (test alns=682) 5.2 mg/dL 2.3-4.7 [id number] 05:00:00 Test Item Value Reference Range Comments MAGNESIUM (BEAKER) (test vcuq=306) 2.0 mg/dL 1.6-2.6 BASIC METABOLIC [id number] 05:00:00 Test Item Value Reference Range Comments SODIUM (BEAKER) (test 141 meq/L 136-145 kymy=647) POTASSIUM (BEAKER) (test 3.7 meq/L 3.5-5.1 maji=394) CHLORIDE (BEAKER) (test 102 meq/L 98-107 zxen=573) CO2 (BEAKER) (test 29 meq/L 22-29 vgsz=194) BLOOD UREA NITROGEN 7 mg/dL 7-21 (BEAKER) (test avob=420) CREATININE (BEAKER) (test 0.68 mg/dL 0.57-1.25 wypi=731) GLUCOSE RANDOM (BEAKER) 114 mg/dL 70-105 (test ghzz=780) CALCIUM (BEAKER) (test 8.2 mg/dL 8.4-10.2 gcpg=726) EGFR (BEAKER) (test 124 mL/min/1.73 sq m ESTIMATED GFR IS NOT vpml=5647) ACCURATE CREATININE CLEARANCE IN PREDICTING GLOMERULAR FILTRATION RATE. ESTIMATED GFR IS NOT APPLICABLE FOR DIALYSIS PATIENTS. [id number] 04:55:00 Test Item Value Reference Range Comments PROTIME (BEAKER) (test gktg=376) 15.2 seconds 11.7-14.7 INR (BEAKER) (test tayz=792) 1.2 <=5.9 PARTIAL THROMBOPLASTIN TIME (BEAKER) (test 38.9 seconds 22.5-36.0 bbfm=619) RECOMMENDED COUMADIN/WARFARIN INR THERAPY RANGESSTANDARD DOSE: 2.0 - 3.0 Includes: PROPHYLAXIS forvenous thrombosis, systemic embolization; TREATMENT for venous thrombosis and/or pulmonary embolus.HIGH RISK: Target INR is 2.5-3.5 for patients with mechanical heart valves.CBC W/PLT COUNT & AUTO [id number] 08:47:00 Test Item Value Reference Range Comments WHITE BLOOD CELL COUNT (BEAKER) (test cgks=233) 13.2 K/ L 3.5-10.5 RED BLOOD CELL COUNT (BEAKER) (test ogtk=896) 3.21 M/ L 4.63-6.08 HEMOGLOBIN (BEAKER) (test xvkz=095) 9.8 GM/DL 13.7-17.5 HEMATOCRIT (BEAKER) (test wkbb=112) 30.9 % 40.1-51.0 MEAN CORPUSCULAR VOLUME (BEAKER) (test kvtf=678) 96.3 fL 79.0-92.2 MEAN CORPUSCULAR HEMOGLOBIN (BEAKER) (test 30.5 pg 25.7-32.2 hixy=527) MEAN CORPUSCULAR HEMOGLOBIN CONC (BEAKER) (test 31.7 GM/DL 32.3-36.5 blyj=345) RED CELL DISTRIBUTION WIDTH (BEAKER) (test 15.2 % 11.6-14.4 etwl=651) PLATELET COUNT (BEAKER) (test vltl=381) 310 K/CU MM 150-450 MEAN PLATELET VOLUME (BEAKER) (test svdm=534) 10.1 fL 9.4-12.4 NUCLEATED RED BLOOD CELLS (BEAKER) (test 0 /100 WBC 0-0 pelg=704) (CELLAVISION MANUAL DIFF)2018-07-17 08:47:00 Test Item Value Reference Range Comments NEUTROPHILS - REL (CELLAVISION)(BEAKER) (test 88 % crow=7555) LYMPHOCYTES - REL (CELLAVISION)(BEAKER) (test 2 % flej=4183) MONOCYTES - REL (CELLAVISION)(BEAKER) (test 5 % etxi=3609) EOSINOPHILS - REL (CELLAVISION)(BEAKER) (test 3 % aaye=8619) MYELOCYTES - REL (CELLAVISION)(BEAKER) (test 1 % 0-0 ecsl=0776) ATYPICAL LYMPHOCYTES - REL (CELLAVISION)(BEAKER) 1 % 0-0 (test nltp=9301) NEUTROPHILS - ABS (CELLAVISION)(BEAKER) (test 11.62 K/ul 1.78-5.38 mdqs=3862) LYMPHOCYTES - ABS (CELLAVISION)(BEAKER) (test 0.26 K/ul 1.32-3.57 xvoh=3687) MONOCYTES - ABS (CELLAVISION)(BEAKER) (test 0.66 K/uL 0.30-0.82 xbdq=9697) EOSINOPHILS - ABS (CELLAVISION)(BEAKER) (test 0.40 K/uL 0.04-0.54 gitz=2509) MYELOCYTES-ABS (CELLAVISION)(BEAKER) (test 0.13 K/uL 0.00-0.00 zoan=2298) ATYPICAL LYMPHOCYTES - ABS (CELLAVISION)(BEAKER) 0.13 K/uL 0.00-0.00 (test lzmf=5426) TOTAL COUNTED (BEAKER) (test ivjz=5325) 100 WBC MORPHOLOGY (BEAKER) (test kgfl=789) Normal PLT MORPHOLOGY (BEAKER) (test ibqi=264) Normal ANISOCYTOSIS (BEAKER) (test ibmb=329) 2+ moderate MICROCYTES (BEAKER) (test bvsc=244) 2+ moderate ARTIFACT (CELLAVISION)(BEAKER) (test kevh=2535) Present PLATELET CONCENTRATION (CELLAVISION)(BEAKER) Adequate (test maqm=4786) Received comment: User comments: Slide comments:POCT-GLUCOSE [id number] 06: 41:00 Test Item Value Reference Range Comments POC-GLUCOSE METER (BEAKER) 115 mg/dL 70-110 TESTED AT [facility] [address] (test txhn=7191) [facility] [address] BASIC METABOLIC [id number] 04:53:00 Test Item Value Reference Range Comments SODIUM (BEAKER) (test 138 meq/L 136-145 bywp=317) POTASSIUM (BEAKER) (test 3.4 meq/L 3.5-5.1 vvhn=291) CHLORIDE (BEAKER) (test 104 meq/L 98-107 mwms=756) CO2 (BEAKER) (test 25 meq/L 22-29 dgdd=584) BLOOD UREA NITROGEN 7 mg/dL 7-21 (BEAKER) (test wcyz=402) CREATININE (BEAKER) (test 0.68 mg/dL 0.57-1.25 nacy=511) GLUCOSE RANDOM (BEAKER) 173 mg/dL 70-105 (test qzey=421) CALCIUM (BEAKER) (test 7.6 mg/dL 8.4-10.2 dira=081) EGFR (BEAKER) (test 124 mL/min/1.73 sq m ESTIMATED GFR IS NOT dojh=1282) ACCURATE CREATININE CLEARANCE IN PREDICTING GLOMERULAR FILTRATION RATE. ESTIMATED GFR IS NOT APPLICABLE FOR DIALYSIS PATIENTS. [id number] 04:37:00 Test Item Value Reference Range Comments PHOSPHORUS (BEAKER) (test fokp=066) 3.9 mg/dL 2.3-4.7 [id number] 04:37:00 Test Item Value Reference Range Comments MAGNESIUM (BEAKER) (test zexh=659) 1.6 mg/dL 1.6-2.6 [id number] 04:37:00 Test Item Value Reference Range Comments ALBUMIN (BEAKER) (test bfif=0560) 3.2 g/dL 3.5-5.0 [id number] 04:24:00 Test Item Value Reference Range Comments PROTIME (BEAKER) (test frvl=081) 15.9 seconds 11.7-14.7 INR (BEAKER) (test timr=549) 1.2 <=5.9 PARTIAL THROMBOPLASTIN TIME (BEAKER) (test 51.7 seconds 22.5-36.0 jjwl=569) RECOMMENDED COUMADIN/WARFARIN INR THERAPY RANGESSTANDARD DOSE: 2.0 - 3.0 Includes: PROPHYLAXIS forvenous thrombosis, systemic embolization; TREATMENT for venous thrombosis and/or pulmonary embolus.HIGH RISK: Target INR is 2.5-3.5 for patients with mechanical heart valves.RAD, CHEST, 1 VIEW, NON [id number] 03:56:00Reason for exam:->atelectasisShould this be performed [...] MDReport Verified Date/Time: 07/17/2018 03:56:49 Reading Location: [address] Reading Room POCT-GLUCOSE [id number] 00: 56:00 Test Item Value Reference Range Comments POC-GLUCOSE METER (BEAKER) 115 mg/dL 70-110 TESTED AT [facility] [address] (test skdu=4224) [facility] [address] POCT-GLUCOSE [id number] 18:10:00 Test Item Value Reference Range Comments POC-GLUCOSE METER (BEAKER) 116 mg/dL 70-110 TESTED AT [address] (test mtvh=9861) [place] [id number] POCT-GLUCOSE [id number] 13:10:00 Test Item Value Reference Range Comments POC-GLUCOSE METER (BEAKER) 115 mg/dL 70-110 TESTED AT [address] (test baqt=9890) [place] [address] RAD, CHEST, 1 VIEW, NON [id number] 08:20:00Reason for exam:-> atelectasisShould this be performed [...] Gaudencio Barrett Verified Date/Time: 2018 08:20:57 ReadingLocation: [facility] B1 [id number] Ortho Consult Reading Room TROPONIN [id number] 08:03:00 Test Item Value Reference Range Comments TROPONIN I (BEAKER) (test kyic=814) 0.01 ng/mL 0.00-0.03 Troponin I (TnI) levels [...] acute neurological disease, and persistent tachyarrhythmia.BLOOD GAS, [id number] 07:42:00 Test Item Value Reference Range Comments PH ARTERIAL (BEAKER) (test wrxb=960) 7.42 7.35-7.45 PCO2 ARTERIAL (BEAKER) (test kply=999) 40 mmHg 35-45 PO2 ARTERIAL (BEAKER) (test kjbh=399) 77 mmHg 80-90 O2 SATURATION ARTERIAL (BEAKER) (test qtui=763) 95.8 % 96.0-97.0 HCO3 ARTERIAL (BEAKER) (test ueqj=032) 25 mmol/L 21-29 BASE EXCESS ARTERIAL (BEAKER) (test bdcz=902) 0.9 mmol/L -2.0-3.0 PATIENT TEMPERATURE (BEAKER) (test ycls=6733) 36.8 C FIO2 (BEAKER) (test gixc=0788) 44.0 % POCT-GLUCOSE [id number] 06:03:00 Test Item Value Reference Range Comments POC-GLUCOSE METER (BEAKER) 120 mg/dL 70-110 TESTED AT [address] (test cdfm=0943) [facility] [address] CBC W/PLT COUNT & AUTO [id number] 04:00:00 Test Item Value Reference Range Comments WHITE BLOOD CELL COUNT (BEAKER) (test ffxb=991) 20.3 K/ L 3.5-10.5 RED BLOOD CELL COUNT (BEAKER) (test iufp=789) 3.66 M/ L 4.63-6.08 HEMOGLOBIN (BEAKER) (test aaor=388) 11.3 GM/DL 13.7-17.5 HEMATOCRIT (BEAKER) (test lxkw=117) 36.0 % 40.1-51.0 MEAN CORPUSCULAR VOLUME (BEAKER) (test ngwe=734) 98.4 fL 79.0-92.2 MEAN CORPUSCULAR HEMOGLOBIN (BEAKER) (test 30.9 pg 25.7-32.2 ivxu=402) MEAN CORPUSCULAR HEMOGLOBIN CONC (BEAKER) (test 31.4 GM/DL 32.3-36.5 epjx=326) RED CELL DISTRIBUTION WIDTH (BEAKER) (test 15.0 % 11.6-14.4 ugys=882) PLATELET COUNT (BEAKER) (test jhzr=833) 319 K/CU MM 150-450 MEAN PLATELET VOLUME (BEAKER) (test benb=835) 10.5 fL 9.4-12.4 NUCLEATED RED BLOOD CELLS (BEAKER) (test 0 /100 WBC 0-0 dirf=662) NEUTROPHILS RELATIVE PERCENT (BEAKER) (test 86 % pbev=576) LYMPHOCYTES RELATIVE PERCENT (BEAKER) (test 4 % bcxw=453) MONOCYTES RELATIVE PERCENT (BEAKER) (test 9 % bhxu=346) EOSINOPHILS RELATIVE PERCENT (BEAKER) (test 0 % laym=639) BASOPHILS RELATIVE PERCENT (BEAKER) (test 0 % deqp=033) NEUTROPHILS ABSOLUTE COUNT (BEAKER) (test 17.32 K/ L 1.78-5.38 qxyz=689) LYMPHOCYTES ABSOLUTE COUNT (BEAKER) (test 0.72 K/ L 1.32-3.57 eliu=886) MONOCYTES ABSOLUTE COUNT (BEAKER) (test 1.82 K/ L 0.30-0.82 mvja=789) EOSINOPHILS ABSOLUTE COUNT (BEAKER) (test 0.07 K/ L 0.04-0.54 ysxr=904) BASOPHILS ABSOLUTE COUNT (BEAKER) (test 0.07 K/ L 0.01-0.08 svnt=977) IMMATURE GRANULOCYTES-RELATIVE PERCENT (BEAKER) 1 % 0-1 (test xruf=1493) [id number] 03:38:00 Test Item Value Reference Range Comments MAGNESIUM (BEAKER) (test 2.0 mg/dL 1.6-2.6 Specimen slightly hemolyzed eglg=750) [id number] 03:38:00 Test Item Value Reference Range Comments PHOSPHORUS (BEAKER) (test 3.6 mg/dL 2.3-4.7 Specimen slightly hemolyzed lgbv=708) BASIC METABOLIC [id number] 03:38:00 Test Item Value Reference Range Comments SODIUM (BEAKER) (test 140 meq/L 136-145 alim=100) POTASSIUM (BEAKER) (test 4.0 meq/L 3.5-5.1 Specimen slightly vgxg=224) hemolyzed CHLORIDE (BEAKER) (test 105 meq/L 98-107 ffjo=160) CO2 (BEAKER) (test 25 meq/L 22-29 pdbg=201) BLOOD UREA NITROGEN 5 mg/dL 7-21 (BEAKER) (test uqrc=957) CREATININE (BEAKER) (test 0.73 mg/dL 0.57-1.25 Specimen slightly yaeo=748) hemolyzed GLUCOSE RANDOM (BEAKER) 129 mg/dL 70-105 (test fmin=663) CALCIUM (BEAKER) (test 8.5 mg/dL 8.4-10.2 vead=829) EGFR (BEAKER) (test 115 mL/min/1.73 sq m ESTIMATED GFR IS NOT klvl=9635) ACCURATE CREATININE CLEARANCE IN PREDICTING GLOMERULAR FILTRATION RATE. ESTIMATED GFR IS NOT APPLICABLE FOR DIALYSIS PATIENTS. [id number] 03:38:00 Test Item Value Reference Range Comments ALBUMIN (BEAKER) (test 3.9 g/dL 3.5-5.0 Specimen slightly hemolyzed bzow=9125) [id number] 03:31:00 Test Item Value Reference Range Comments PROTIME (BEAKER) (test vzxk=678) 15.5 seconds 11.7-14.7 INR (BEAKER) (test mobh=777) 1.2 <=5.9 PARTIAL THROMBOPLASTIN TIME (BEAKER) (test 34.5 seconds 22.5-36.0 mzcc=383) RECOMMENDED COUMADIN/WARFARIN INR THERAPY RANGESSTANDARD DOSE: 2.0 - 3.0 Includes: PROPHYLAXIS forvenous thrombosis, systemic embolization; TREATMENT for venous thrombosis and/or pulmonary embolus.HIGH RISK: Target INR is 2.5-3.5 for patients with mechanical heart valves.POCT-GLUCOSE [id number] 23:39:00 Test Item Value Reference Range Comments POC-GLUCOSE METER (BEAKER) 121 mg/dL 70-110 TESTED AT [address] (test bnlb=1494) [facility] [address] POCT-GLUCOSE [id number] 18:25:00 Test Item Value Reference Range Comments POC-GLUCOSE METER (BEAKER) 112 mg/dL 70-110 TESTED AT [address] (test idny=7633) [facility] [address] T4, [id number] 12:56:00 Test Item Value Reference Range Comments FREE T4 (BEAKER) (test nohl=222) 1.17 ng/dL 0.70-1.48 POCT-GLUCOSE [id number] 11:35:00 Test Item Value Reference Range Comments POC-GLUCOSE METER (BEAKER) 143 mg/dL 70-110 TESTED AT [facility] [address] (test elwt=4569) [place] [address] CBC W/PLT COUNT & AUTO [id number] 07:50:00 Test Item Value Reference Range Comments WHITE BLOOD CELL COUNT (BEAKER) (test seyl=196) 24.1 K/ L 3.5-10.5 RED BLOOD CELL COUNT (BEAKER) (test enld=997) 3.75 M/ L 4.63-6.08 HEMOGLOBIN (BEAKER) (test ifsv=259) 11.7 GM/DL 13.7-17.5 HEMATOCRIT (BEAKER) (test otpj=418) 35.7 % 40.1-51.0 MEAN CORPUSCULAR VOLUME (BEAKER) (test zhkp=310) 95.2 fL 79.0-92.2 MEAN CORPUSCULAR HEMOGLOBIN (BEAKER) (test 31.2 pg 25.7-32.2 dwia=011) MEAN CORPUSCULAR HEMOGLOBIN CONC (BEAKER) (test 32.8 GM/DL 32.3-36.5 tkag=583) RED CELL DISTRIBUTION WIDTH (BEAKER) (test 14.8 % 11.6-14.4 tsak=757) PLATELET COUNT (BEAKER) (test npxn=420) 334 K/CU MM 150-450 MEAN PLATELET VOLUME (BEAKER) (test abtu=975) 10.3 fL 9.4-12.4 NUCLEATED RED BLOOD CELLS (BEAKER) (test 0 /100 WBC 0-0 ddrw=132) (CELLAVISION MANUAL DIFF)2018-07-15 07:50:00 Test Item Value Reference Range Comments NEUTROPHILS - REL (CELLAVISION)(BEAKER) (test 87 % iydc=2097) LYMPHOCYTES - REL (CELLAVISION)(BEAKER) (test 3 % chie=2063) MONOCYTES - REL (CELLAVISION)(BEAKER) (test 5 % fpmk=3834) METAMYELOCYTES - REL (CELLAVISION)(BEAKER) (test 1 % 0-0 rodx=3324) MYELOCYTES - REL (CELLAVISION)(BEAKER) (test 1 % 0-0 ysth=1016) BANDS - REL (CELLAVISION)(BEAKER) (test 2 % 0-10 affk=1119) ATYPICAL LYMPHOCYTES - REL (CELLAVISION)(BEAKER) 1 % 0-0 (test fhxl=7686) NEUTROPHILS - ABS (CELLAVISION)(BEAKER) (test 20.97 K/ul 1.78-5.38 jhjg=4230) LYMPHOCYTES - ABS (CELLAVISION)(BEAKER) (test 0.72 K/ul 1.32-3.57 ljxt=9049) MONOCYTES - ABS (CELLAVISION)(BEAKER) (test 1.21 K/uL 0.30-0.82 xluh=1505) METAMYELOCYTES - ABS (CELLAVISION)(BEAKER) (test 0.24 K/uL 0.00-0.00 hcfj=5472) MYELOCYTES-ABS (CELLAVISION)(BEAKER) (test 0.24 K/uL 0.00-0.00 nvvk=6175) BANDS - ABS (CELLAVISION)(BEAKER) (test 0.48 K/uL 0.00-0.80 nrjx=1616) ATYPICAL LYMPHOCYTES - ABS (CELLAVISION)(BEAKER) 0.24 K/uL 0.00-0.00 (test zzoi=4152) TOTAL COUNTED (BEAKER) (test ujiy=3487) 100 WBC MORPHOLOGY (BEAKER) (test ubhy=393) Normal PLT MORPHOLOGY (BEAKER) (test yvnf=584) Normal ANISOCYTOSIS (BEAKER) (test vzjx=674) 2+ moderate MICROCYTES (BEAKER) (test nstf=501) 2+ moderate ARTIFACT (CELLAVISION)(BEAKER) (test kbff=3764) Present PLATELET CONCENTRATION (CELLAVISION)(BEAKER) Adequate (test mkor=7231) Received comment: User comments: Slide comments:RAD, CHEST, 1 VIEW, NON [id number] 05:48:00Reason for exam:->postop laryngectomy with trachShould [...] [place] Verified Date/Time: 2018 05:48:22 Reading Location: [address] Neuro Reading Room POCT-GLUCOSE [id number] 05:47:00 Test Item Value Reference Range Comments POC-GLUCOSE METER (BEAKER) 177 mg/dL 70-110 TESTED AT [facility] [address] [facility] (test hevp=3713) [facility] [address] [id number] 04:29:00 Test Item Value Reference Range Comments PHOSPHORUS (BEAKER) (test npva=662) 2.3 mg/dL 2.3-4.7 [id number] 04:29:00 Test Item Value Reference Range Comments MAGNESIUM (BEAKER) (test hlea=847) 1.7 mg/dL 1.6-2.6 BASIC METABOLIC [id number] 04:29:00 Test Item Value Reference Range Comments SODIUM (BEAKER) (test 136 meq/L 136-145 otro=824) POTASSIUM (BEAKER) (test 3.7 meq/L 3.5-5.1 wykf=652) CHLORIDE (BEAKER) (test 103 meq/L 98-107 hiko=906) CO2 (BEAKER) (test 24 meq/L 22-29 nqqe=768) BLOOD UREA NITROGEN 7 mg/dL 7-21 (BEAKER) (test vkmg=554) CREATININE (BEAKER) (test 0.73 mg/dL 0.57-1.25 yrxf=485) GLUCOSE RANDOM (BEAKER) 179 mg/dL 70-105 (test dbdw=669) CALCIUM (BEAKER) (test 9.2 mg/dL 8.4-10.2 jjqt=227) EGFR (BEAKER) (test 115 mL/min/1.73 sq m ESTIMATED GFR IS NOT worz=6592) ACCURATE CREATININE CLEARANCE IN PREDICTING GLOMERULAR FILTRATION RATE. ESTIMATED GFR IS NOT APPLICABLE FOR DIALYSIS PATIENTS. [id number] 04:29:00 Test Item Value Reference Range Comments ALBUMIN (BEAKER) (test beuw=9894) 3.8 g/dL 3.5-5.0 [id number] 04:22:00 Test Item Value Reference Range Comments PROTIME (BEAKER) (test rlms=866) 14.5 seconds 11.7-14.7 INR (BEAKER) (test qfbj=679) 1.1 <=5.9 PARTIAL THROMBOPLASTIN TIME (BEAKER) (test 42.0 seconds 22.5-36.0 iwpk=428) RECOMMENDED COUMADIN/WARFARIN INR THERAPY RANGESSTANDARD DOSE: 2.0 - 3.0 Includes: PROPHYLAXIS forvenous thrombosis, systemic embolization; TREATMENT for venous thrombosis and/or pulmonary embolus.HIGH RISK: Target INR is 2.5-3.5 for patients with mechanical heart valves.POCT-GLUCOSE [id number] 23:55:00 Test Item Value Reference Range Comments POC-GLUCOSE METER (BEAKER) 159 mg/dL 70-110 TESTED AT [facility] [address] [place] [address] (test kxyx=6124) [facility] [address] [id number] 19:41:00 Test Item Value Reference Range Comments THYROID STIMULATING HORMONE (BEAKER) (test 6.82 uIU/mL 0.35-4.94 npnf=555) [id number] 19:26:00 Test Item Value Reference Range Comments PHOSPHORUS (BEAKER) (test wxbb=756) 4.9 mg/dL 2.3-4.7 Postop labsPostop labsPostop labsPostop [id number] 19:26:00 Test Item Value Reference Range Comments MAGNESIUM (BEAKER) (test inyx=638) 1.9 mg/dL 1.6-2.6 Postop labsPostop labsPostop labsPostop labsBASIC METABOLIC [id number] 19: 26:00 Test Item Value Reference Range Comments SODIUM (BEAKER) (test 140 meq/L 136-145 gvuu=956) POTASSIUM (BEAKER) (test 4.6 meq/L 3.5-5.1 jeym=496) CHLORIDE (BEAKER) (test 107 meq/L 98-107 jxfu=138) CO2 (BEAKER) (test 26 meq/L 22-29 ccbp=556) BLOOD UREA NITROGEN 8 mg/dL 7-21 (BEAKER) (test fvdg=385) CREATININE (BEAKER) (test 0.77 mg/dL 0.57-1.25 riwq=368) GLUCOSE RANDOM (BEAKER) 109 mg/dL 70-105 (test ptkm=228) CALCIUM (BEAKER) (test 9.4 mg/dL 8.4-10.2 lupk=459) EGFR (BEAKER) (test 108 mL/min/1.73 sq m ESTIMATED GFR IS NOT ifca=7806) ACCURATE CREATININE CLEARANCE IN PREDICTING GLOMERULAR FILTRATION RATE. ESTIMATED GFR IS NOT APPLICABLE FOR DIALYSIS PATIENTS. Postop labsPostop labsPostop labsPostop [id number] 19:26:00 Test Item Value Reference Range Comments ALBUMIN (BEAKER) (test xret=0372) 3.9 g/dL 3.5-5.0 Postop labsPostop labsPostop labsPostop [id number] 19:24:00 Test Item Value Reference Range Comments PREALBUMIN (BEAKER) (test 17 mg/dL 14-45 Specimen slightly hemolyzed ilnu=291) PTH, [id number] 19:23:00 Test Item Value Reference Range Comments PARATHYROID HORMONE INTACT (BEAKER) (test 16.1 pg/mL 8.5-72.5 refm=146) Postop LabsCBC W/PLT COUNT & AUTO [id number] 18:58:00 Test Item Value Reference Range Comments WHITE BLOOD CELL COUNT (BEAKER) (test bjuh=978) 13.3 K/ L 3.5-10.5 RED BLOOD CELL COUNT (BEAKER) (test jlsc=874) 3.50 M/ L 4.63-6.08 HEMOGLOBIN (BEAKER) (test xyhj=892) 10.8 GM/DL 13.7-17.5 HEMATOCRIT (BEAKER) (test jfkd=011) 34.1 % 40.1-51.0 MEAN CORPUSCULAR VOLUME (BEAKER) (test yrvq=526) 97.4 fL 79.0-92.2 MEAN CORPUSCULAR HEMOGLOBIN (BEAKER) (test 30.9 pg 25.7-32.2 cjjv=184) MEAN CORPUSCULAR HEMOGLOBIN CONC (BEAKER) (test 31.7 GM/DL 32.3-36.5 xfyo=976) RED CELL DISTRIBUTION WIDTH (BEAKER) (test 15.1 % 11.6-14.4 yivd=466) PLATELET COUNT (BEAKER) (test zhnm=966) 278 K/CU MM 150-450 MEAN PLATELET VOLUME (BEAKER) (test xgid=984) 9.5 fL 9.4-12.4 NUCLEATED RED BLOOD CELLS (BEAKER) (test 0 /100 WBC 0-0 hfpp=471) NEUTROPHILS RELATIVE PERCENT (BEAKER) (test 84 % axbj=094) LYMPHOCYTES RELATIVE PERCENT (BEAKER) (test 6 % hgth=758) MONOCYTES RELATIVE PERCENT (BEAKER) (test 8 % ejhv=239) EOSINOPHILS RELATIVE PERCENT (BEAKER) (test 1 % oeth=229) BASOPHILS RELATIVE PERCENT (BEAKER) (test 0 % veuy=746) NEUTROPHILS ABSOLUTE COUNT (BEAKER) (test 11.15 K/ L 1.78-5.38 pczx=326) LYMPHOCYTES ABSOLUTE COUNT (BEAKER) (test 0.73 K/ L 1.32-3.57 kxss=643) MONOCYTES ABSOLUTE COUNT (BEAKER) (test 1.04 K/ L 0.30-0.82 hcfe=337) EOSINOPHILS ABSOLUTE COUNT (BEAKER) (test 0.15 K/ L 0.04-0.54 xome=642) BASOPHILS ABSOLUTE COUNT (BEAKER) (test 0.05 K/ L 0.01-0.08 azln=807) IMMATURE GRANULOCYTES-RELATIVE PERCENT (BEAKER) 1 % 0-1 (test shuv=3212) BLOOD GAS, [id number] 15:31:00 Test Item Value Reference Range Comments PH ARTERIAL (BEAKER) (test twzh=961) 7.37 7.35-7.45 PCO2 ARTERIAL (BEAKER) (test rrji=129) 46 mmHg 35-45 PO2 ARTERIAL (BEAKER) (test qkwa=368) 273 mmHg 80-90 O2 SATURATION ARTERIAL (BEAKER) (test oatc=758) 99.6 % 96.0-97.0 HCO3 ARTERIAL (BEAKER) (test yooa=188) 26 mmol/L 21-29 BASE EXCESS ARTERIAL (BEAKER) (test lnct=939) 0.4 mmol/L -2.0-3.0 PATIENT TEMPERATURE (BEAKER) (test yvka=9448) 37.0 C FIO2 (BEAKER) (test mmfc=0910) 100.0 % HGB/HCT (H&H) - STAT [id number] 15:31:00 Test Item Value Reference Range Comments HEMOGLOBIN (BEAKER) (test slrs=159) 11.0 g/dL 13.0-16.8 HEMATOCRIT (BEAKER) (test bttd=409) 32.0 % 40.0-50.0 GLUCOSE-STAT [id number] 15:30:00 Test Item Value Reference Range Comments GLUCOSE RANDOM (BEAKER) (test vcwb=572) 87 mg/dL 70-110 SODIUM NA-STAT [id number] 15:30:00 Test Item Value Reference Range Comments SODIUM (BEAKER) (test xawp=453) 137 meq/L 135-148 POTASSIUM-STAT [id number] 15:30:00 Test Item Value Reference Range Comments POTASSIUM (BEAKER) (test ujaz=144) 4.0 meq/L 3.6-5.5 ANG, INSERTION G TUBE, W/ [id number] 14:18:00Reason for exam:-> Gastrostomy tubeFINAL REPORT Fluoroscopic guided gastrostomy tube placement, 07/11/2018. Clinical History: Laryngeal cancer. Modality: Fluoroscopy. Housekeeping Manager: Jack Lima MD. Leadership Intern: Dilip Vivas MD. Conscious sedation: 2.0 mg [...] After the tract was dilated, a 14 [place] catheter was placed into the stomach. The [...] Verified Date/Time: 07/11/2018 14:18 :50 Reading Location: [place] [address] Angio Body Reading Room Electronically signed by: JACK Rose 07/11/2018 02:18 PMTSH/FREE T4 IF [id number] 13:24:00 Test Item Value Reference Range Comments THYROID STIMULATING HORMONE (BEAKER) (test 2.37 uIU/mL 0.35-4.94 vjqs=546) RAD, CHEST, PA OR AP, 1 [id number] 11:03:00Reason for exam:->coughShould this be performed at the bedside?->NoFINAL REPORT AP chest HISTORY: Cough. COMPARISON: 06/17/2018. IMPRESSION: Tracheostomy tube present. Heart size normal. Lungs clear without effusion or pneumothorax. Intact skeleton. Signed: Ashok Whitaker Verified Date/Time: 2018 11:03:24 Reading Location: [address] Radiology Reading Room 11:03 AMCOMPREHENSIVE METABOLIC [id number] 10:52:00 Test Item Value Reference Range Comments TOTAL PROTEIN (BEAKER) 7.2 gm/dL 6.0-8.3 (test sydd=159) ALBUMIN (BEAKER) (test 3.9 g/dL 3.5-5.0 zojb=8683) ALKALINE PHOSPHATASE 98 U/L 40-150 (BEAKER) (test uhim=172) BILIRUBIN TOTAL (BEAKER) 0.4 mg/dL 0.2-1.2 (test enlz=749) SODIUM (BEAKER) (test 141 meq/L 136-145 iyey=177) POTASSIUM (BEAKER) (test 4.4 meq/L 3.5-5.1 pejh=979) CHLORIDE (BEAKER) (test 109 meq/L 98-107 tddw=769) CO2 (BEAKER) (test 24 meq/L 22-29 msvr=056) BLOOD UREA NITROGEN 14 mg/dL 7-21 (BEAKER) (test dcng=505) CREATININE (BEAKER) (test 0.78 mg/dL 0.57-1.25 krod=031) GLUCOSE RANDOM (BEAKER) 107 mg/dL 70-105 (test pgtl=534) CALCIUM (BEAKER) (test 9.4 mg/dL 8.4-10.2 fzfe=202) AST (SGOT) (BEAKER) (test 17 U/L 5-34 ztay=145) ALT (SGPT) (BEAKER) (test 17 U/L 6-55 vsll=918) EGFR (BEAKER) (test 106 mL/min/1.73 sq ESTIMATED GFR IS NOT rcsm=1558) m ACCURATE CREATININE CLEARANCE IN PREDICTING GLOMERULAR FILTRATION RATE. ESTIMATED GFR IS NOT APPLICABLE FOR DIALYSIS PATIENTS. CBC W/PLT COUNT & AUTO [id number] 10:32:00 Test Item Value Reference Range Comments WHITE BLOOD CELL COUNT (BEAKER) (test toip=185) 10.8 K/ L 3.5-10.5 RED BLOOD CELL COUNT (BEAKER) (test nenf=942) 4.08 M/ L 4.63-6.08 HEMOGLOBIN (BEAKER) (test umta=000) 12.6 GM/DL 13.7-17.5 HEMATOCRIT (BEAKER) (test qiiz=754) 39.4 % 40.1-51.0 MEAN CORPUSCULAR VOLUME (BEAKER) (test jeuo=991) 96.6 fL 79.0-92.2 MEAN CORPUSCULAR HEMOGLOBIN (BEAKER) (test 30.9 pg 25.7-32.2 buza=167) MEAN CORPUSCULAR HEMOGLOBIN CONC (BEAKER) (test 32.0 GM/DL 32.3-36.5 hppo=401) RED CELL DISTRIBUTION WIDTH (BEAKER) (test 15.3 % 11.6-14.4 porb=057) PLATELET COUNT (BEAKER) (test wpri=731) 321 K/CU MM 150-450 MEAN PLATELET VOLUME (BEAKER) (test qelw=302) 9.9 fL 9.4-12.4 NUCLEATED RED BLOOD CELLS (BEAKER) (test 0 /100 WBC 0-0 tuss=026) NEUTROPHILS RELATIVE PERCENT (BEAKER) (test 76 % gkok=813) LYMPHOCYTES RELATIVE PERCENT (BEAKER) (test 7 % adud=687) MONOCYTES RELATIVE PERCENT (BEAKER) (test 10 % ydwu=368) EOSINOPHILS RELATIVE PERCENT (BEAKER) (test 2 % hmhy=302) BASOPHILS RELATIVE PERCENT (BEAKER) (test 1 % eszt=645) NEUTROPHILS ABSOLUTE COUNT (BEAKER) (test 8.18 K/ L 1.78-5.38 yvwa=979) LYMPHOCYTES ABSOLUTE COUNT (BEAKER) (test 0.79 K/ L 1.32-3.57 fbrr=718) MONOCYTES ABSOLUTE COUNT (BEAKER) (test 1.04 K/ L 0.30-0.82 sgby=161) EOSINOPHILS ABSOLUTE COUNT (BEAKER) (test 0.16 K/ L 0.04-0.54 lzll=669) BASOPHILS ABSOLUTE COUNT (BEAKER) (test 0.13 K/ L 0.01-0.08 tqhh=844) IMMATURE GRANULOCYTES-RELATIVE PERCENT (BEAKER) 5 % 0-1 (test znbb=1489) [id number] 10:30:00 Test Item Value Reference Range Comments PROTIME (BEAKER) (test rwgx=807) 14.6 seconds 11.7-14.7 INR (BEAKER) (test ijkn=743) 1.1 <=5.9 PARTIAL THROMBOPLASTIN TIME (BEAKER) (test 34.3 seconds 22.5-36.0 njyy=447) RECOMMENDED COUMADIN/WARFARIN INR THERAPY RANGESSTANDARD DOSE: 2.0 - 3.0 Includes: PROPHYLAXIS forvenous thrombosis, systemic embolization; TREATMENT for venous thrombosis and/or pulmonary embolus.HIGH RISK: Target INR is 2.5-3.5 for patients with mechanical heart valves.BLOOD [id number] 20:01:00 Test Item Value Reference Range Comments CULTURE (BEAKER) (test dnxi=9977) No growth in 5 days BLOOD [id number] 20:01:00 Test Item Value Reference Range Comments CULTURE (BEAKER) (test jrjv=6805) No growth in 5 days CBC W/PLT COUNT & AUTO [id number] 12:54:00 Test Item Value Reference Range Comments WHITE BLOOD CELL COUNT (BEAKER) (test qnwk=169) 6.6 K/ L 3.5-10.5 RED BLOOD CELL COUNT (BEAKER) (test laca=811) 3.84 M/ L 4.63-6.08 HEMOGLOBIN (BEAKER) (test hver=821) 11.9 GM/DL 13.7-17.5 HEMATOCRIT (BEAKER) (test uztz=265) 37.1 % 40.1-51.0 MEAN CORPUSCULAR VOLUME (BEAKER) (test csdu=368) 96.6 fL 79.0-92.2 MEAN CORPUSCULAR HEMOGLOBIN (BEAKER) (test 31.0 pg 25.7-32.2 mdva=121) MEAN CORPUSCULAR HEMOGLOBIN CONC (BEAKER) (test 32.1 GM/DL 32.3-36.5 ieif=782) RED CELL DISTRIBUTION WIDTH (BEAKER) (test 15.1 % 11.6-14.4 pqha=112) PLATELET COUNT (BEAKER) (test pujl=129) 282 K/CU MM 150-450 MEAN PLATELET VOLUME (BEAKER) (test deqb=177) 10.3 fL 9.4-12.4 NUCLEATED RED BLOOD CELLS (BEAKER) (test 0 /100 WBC 0-0 fluc=655) (CELLAVISION MANUAL DIFF)2018-06-21 12:54:00 Test Item Value Reference Range Comments NEUTROPHILS - REL (CELLAVISION)(BEAKER) (test 63 % ouby=6393) LYMPHOCYTES - REL (CELLAVISION)(BEAKER) (test 10 % vvfy=2054) MONOCYTES - REL (CELLAVISION)(BEAKER) (test 8 % uabf=2936) EOSINOPHILS - REL (CELLAVISION)(BEAKER) (test 2 % bsjh=0634) BASOPHILS - REL (CELLAVISION)(BEAKER) (test 2 % riny=0067) METAMYELOCYTES - REL (CELLAVISION)(BEAKER) (test 2 % 0-0 vccn=6077) BANDS - REL (CELLAVISION)(BEAKER) (test aclv=4094) 12 % 0-10 NEUTROPHILS - ABS (CELLAVISION)(BEAKER) (test 4.16 K/ul 1.78-5.38 wgtz=3233) LYMPHOCYTES - ABS (CELLAVISION)(BEAKER) (test 0.66 K/ul 1.32-3.57 cvmd=5074) MONOCYTES - ABS (CELLAVISION)(BEAKER) (test 0.53 K/uL 0.30-0.82 aaqt=8564) EOSINOPHILS - ABS (CELLAVISION)(BEAKER) (test 0.13 K/uL 0.04-0.54 yzss=1462) BASOPHILS - ABS (CELLAVISION)(BEAKER) (test 0.13 K/uL 0.01-0.08 nhst=8580) METAMYELOCYTES - ABS (CELLAVISION)(BEAKER) (test 0.13 K/uL 0.00-0.00 smno=4805) BANDS - ABS (CELLAVISION)(BEAKER) (test iaqa=4453) 0.79 K/uL 0.00-0.80 TOTAL COUNTED (BEAKER) (test dgqz=6532) 100 WBC MORPHOLOGY (BEAKER) (test fkkr=356) Normal GIANT PLATELETS (BEAKER) (test dddf=313) Present ANISOCYTOSIS (BEAKER) (test vvgf=731) 1+ few ARTIFACT (CELLAVISION)(BEAKER) (test nrmd=4359) Present PLATELET CONCENTRATION (CELLAVISION)(BEAKER) (test Adequate seje=3030) Received comment: User comments: Slide comments:BASIC METABOLIC [id number] 06:44:00 Test Item Value Reference Range Comments SODIUM (BEAKER) (test 137 meq/L 136-145 mtgw=431) POTASSIUM (BEAKER) (test 4.0 meq/L 3.5-5.1 rlfp=544) CHLORIDE (BEAKER) (test 102 meq/L 98-107 wjna=012) CO2 (BEAKER) (test 27 meq/L 22-29 oogh=657) BLOOD UREA NITROGEN 9 mg/dL 7-21 (BEAKER) (test ztni=310) CREATININE (BEAKER) (test 0.66 mg/dL 0.57-1.25 rqtz=028) GLUCOSE RANDOM (BEAKER) 99 mg/dL 70-105 (test nstg=649) CALCIUM (BEAKER) (test 9.0 mg/dL 8.4-10.2 kdjd=030) EGFR (BEAKER) (test 129 mL/min/1.73 sq m ESTIMATED GFR IS NOT lqkg=6720) ACCURATE CREATININE CLEARANCE IN PREDICTING GLOMERULAR FILTRATION RATE. ESTIMATED GFR IS NOT APPLICABLE FOR DIALYSIS PATIENTS. BLOOD [id number] 12:01:00 Test Item Value Reference Range Comments CULTURE (BEAKER) (test oplz=6055) No growth in 5 days CBC W/PLT COUNT & AUTO [id number] 11:06:00 Test Item Value Reference Range Comments WHITE BLOOD CELL COUNT (BEAKER) (test gpqc=660) 6.7 K/ L 3.5-10.5 RED BLOOD CELL COUNT (BEAKER) (test vpso=564) 3.88 M/ L 4.63-6.08 HEMOGLOBIN (BEAKER) (test kpdi=973) 12.4 GM/DL 13.7-17.5 HEMATOCRIT (BEAKER) (test behr=100) 36.8 % 40.1-51.0 MEAN CORPUSCULAR VOLUME (BEAKER) (test gepz=833) 94.8 fL 79.0-92.2 MEAN CORPUSCULAR HEMOGLOBIN (BEAKER) (test 32.0 pg 25.7-32.2 zhvq=030) MEAN CORPUSCULAR HEMOGLOBIN CONC (BEAKER) (test 33.7 GM/DL 32.3-36.5 vwie=755) RED CELL DISTRIBUTION WIDTH (BEAKER) (test 15.3 % 11.6-14.4 afot=935) PLATELET COUNT (BEAKER) (test wfhy=035) 218 K/CU MM 150-450 MEAN PLATELET VOLUME (BEAKER) (test ifvs=078) 10.5 fL 9.4-12.4 NUCLEATED RED BLOOD CELLS (BEAKER) (test 0 /100 WBC 0-0 hbph=445) (CELLAVISION MANUAL DIFF)2018-06-20 11:06:00 Test Item Value Reference Range Comments NEUTROPHILS - REL (CELLAVISION)(BEAKER) (test 77 % dtjv=0647) LYMPHOCYTES - REL (CELLAVISION)(BEAKER) (test 6 % auni=7046) MONOCYTES - REL (CELLAVISION)(BEAKER) (test 3 % oqzg=3380) EOSINOPHILS - REL (CELLAVISION)(BEAKER) (test 2 % gfnq=2203) BANDS - REL (CELLAVISION)(BEAKER) (test wnqw=3489) 10 % 0-10 ATYPICAL LYMPHOCYTES - REL (CELLAVISION)(BEAKER) 2 % 0-0 (test rusj=0381) NEUTROPHILS - ABS (CELLAVISION)(BEAKER) (test 5.16 K/ul 1.78-5.38 bapr=6861) LYMPHOCYTES - ABS (CELLAVISION)(BEAKER) (test 0.40 K/ul 1.32-3.57 mans=1301) MONOCYTES - ABS (CELLAVISION)(BEAKER) (test 0.20 K/uL 0.30-0.82 ctbh=6954) EOSINOPHILS - ABS (CELLAVISION)(BEAKER) (test 0.13 K/uL 0.04-0.54 gbuh=5106) BANDS - ABS (CELLAVISION)(BEAKER) (test vuoc=2843) 0.67 K/uL 0.00-0.80 ATYPICAL LYMPHOCYTES - ABS (CELLAVISION)(BEAKER) 0.13 K/uL 0.00-0.00 (test akfr=8664) TOTAL COUNTED (BEAKER) (test cork=5558) 100 CLUMPED PLATELETS (BEAKER) (test lohl=977) Present SMUDGE CELLS (BEAKER) (test kdgr=1884) Present GIANT PLATELETS (BEAKER) (test shyq=207) Present TOXIC GRANULATION (BEAKER) (test ikwv=992) Present ANISOCYTOSIS (BEAKER) (test kyml=788) 1+ few PLATELET CONCENTRATION (CELLAVISION)(BEAKER) (test Adequate waqo=1077) Received comment: User comments: Slide comments:BASIC METABOLIC [id number] 08:11:00 Test Item Value Reference Range Comments SODIUM (BEAKER) (test 134 meq/L 136-145 oggk=149) POTASSIUM (BEAKER) (test 3.8 meq/L 3.5-5.1 wala=827) CHLORIDE (BEAKER) (test 97 meq/L 98-107 edfl=253) CO2 (BEAKER) (test 29 meq/L 22-29 pmge=143) BLOOD UREA NITROGEN 8 mg/dL 7-21 (BEAKER) (test ntia=588) CREATININE (BEAKER) (test 0.65 mg/dL 0.57-1.25 zxdm=139) GLUCOSE RANDOM (BEAKER) 93 mg/dL 70-105 (test lmxc=719) CALCIUM (BEAKER) (test 9.0 mg/dL 8.4-10.2 pnrc=928) EGFR (BEAKER) (test 132 mL/min/1.73 sq m ESTIMATED GFR IS NOT wplv=3730) ACCURATE CREATININE CLEARANCE IN PREDICTING GLOMERULAR FILTRATION RATE. ESTIMATED GFR IS NOT APPLICABLE FOR DIALYSIS PATIENTS. BLOOD [id number] 08:01:00 Test Item Value Reference Range Comments CULTURE (BEAKER) (test vrvm=5791) No growth in 5 days BLOOD [id number] 02:00:00 Test Item Value Reference Range Comments CULTURE (BEAKER) (test izec=9791) No growth in 5 days BLOOD [id number] 02:00:00 Test Item Value Reference Range Comments CULTURE (BEAKER) (test jupi=6646) No growth in 5 days CBC W/PLT COUNT & AUTO [id number] 15:32:00 Test Item Value Reference Range Comments WHITE BLOOD CELL COUNT (BEAKER) (test hfbe=541) 6.4 K/ L 3.5-10.5 RED BLOOD CELL COUNT (BEAKER) (test ldwt=883) 4.16 M/ L 4.63-6.08 HEMOGLOBIN (BEAKER) (test okjz=670) 13.2 GM/DL 13.7-17.5 HEMATOCRIT (BEAKER) (test zmqs=033) 39.5 % 40.1-51.0 MEAN CORPUSCULAR VOLUME (BEAKER) (test fncp=363) 95.0 fL 79.0-92.2 MEAN CORPUSCULAR HEMOGLOBIN (BEAKER) (test 31.7 pg 25.7-32.2 baze=042) MEAN CORPUSCULAR HEMOGLOBIN CONC (BEAKER) (test 33.4 GM/DL 32.3-36.5 uvvf=771) RED CELL DISTRIBUTION WIDTH (BEAKER) (test 15.7 % 11.6-14.4 znmi=691) PLATELET COUNT (BEAKER) (test hhtn=072) 148 K/CU MM 150-450 MEAN PLATELET VOLUME (BEAKER) (test nysl=353) 10.7 fL 9.4-12.4 NUCLEATED RED BLOOD CELLS (BEAKER) (test 0 /100 WBC 0-0 ckrr=622) (CELLAVISION MANUAL DIFF)2018-06-19 15:32:00 Test Item Value Reference Range Comments NEUTROPHILS - REL (CELLAVISION)(BEAKER) (test 73 % etpp=6040) LYMPHOCYTES - REL (CELLAVISION)(BEAKER) (test 3 % ayli=7950) MONOCYTES - REL (CELLAVISION)(BEAKER) (test 3 % mbjr=1286) METAMYELOCYTES - REL (CELLAVISION)(BEAKER) (test 2 % 0-0 gewl=0186) MYELOCYTES - REL (CELLAVISION)(BEAKER) (test 1 % 0-0 oijx=7063) BANDS - REL (CELLAVISION)(BEAKER) (test 16 % 0-10 ylgs=7977) NEUTROPHILS - ABS (CELLAVISION)(BEAKER) (test 4.67 K/ul 1.78-5.38 okex=7647) LYMPHOCYTES - ABS (CELLAVISION)(BEAKER) (test 0.19 K/ul 1.32-3.57 kger=3112) MONOCYTES - ABS (CELLAVISION)(BEAKER) (test 0.19 K/uL 0.30-0.82 rbbe=4160) METAMYELOCYTES - ABS (CELLAVISION)(BEAKER) (test 0.13 K/uL 0.00-0.00 tajt=8330) MYELOCYTES-ABS (CELLAVISION)(BEAKER) (test 0.06 K/uL 0.00-0.00 dckw=9972) BANDS - ABS (CELLAVISION)(BEAKER) (test 1.02 K/uL 0.00-0.80 xugb=8977) TOTAL COUNTED (BEAKER) (test iaav=7366) 100 GIANT PLATELETS (BEAKER) (test yaii=450) Present TOXIC GRANULATION (BEAKER) (test qrbc=185) Present PLASMACYTOID LYMPHS(BEAKER) (test izlz=9455) Present POLYCHROMATOPHILLIC RBCS(BEAKER) (test gcsa=797) 1+ few ANISOCYTOSIS (BEAKER) (test nndu=772) 2+ moderate MICROCYTES (BEAKER) (test kmqg=662) 2+ moderate POIKILOCYTES (BEAKER) (test jrsu=761) 1+ few SPHEROCYTES (BEAKER) (test hvcy=173) 1+ few ARTIFACT (CELLAVISION)(BEAKER) (test qbdz=3097) Present HELMET CELLS (CELLAVISION)(BEAKER) (test 1+ few khuc=2379) PLATELET CONCENTRATION (CELLAVISION)(BEAKER) Decreased (test lrwc=0694) Received comment: User comments: Slide comments:BASIC METABOLIC [id number] 07:38:00 Test Item Value Reference Range Comments SODIUM (BEAKER) (test 132 meq/L 136-145 cskw=478) POTASSIUM (BEAKER) (test 3.5 meq/L 3.5-5.1 uzyt=894) CHLORIDE (BEAKER) (test 95 meq/L 98-107 zula=295) CO2 (BEAKER) (test 27 meq/L 22-29 wtdk=121) BLOOD UREA NITROGEN 11 mg/dL 7-21 (BEAKER) (test fjxa=058) CREATININE (BEAKER) (test 0.61 mg/dL 0.57-1.25 txgv=543) GLUCOSE RANDOM (BEAKER) 94 mg/dL 70-105 (test dnca=971) CALCIUM (BEAKER) (test 8.8 mg/dL 8.4-10.2 rqaw=499) EGFR (BEAKER) (test 142 mL/min/1.73 sq m ESTIMATED GFR IS NOT avdu=9146) ACCURATE CREATININE CLEARANCE IN PREDICTING GLOMERULAR FILTRATION RATE. ESTIMATED GFR IS NOT APPLICABLE FOR DIALYSIS PATIENTS. CBC W/PLT COUNT & AUTO [id number] 12:37:00 Test Item Value Reference Range Comments WHITE BLOOD CELL COUNT (BEAKER) (test lxeo=945) 8.5 K/ L 3.5-10.5 RED BLOOD CELL COUNT (BEAKER) (test ouca=218) 4.16 M/ L 4.63-6.08 HEMOGLOBIN (BEAKER) (test imbw=359) 13.0 GM/DL 13.7-17.5 HEMATOCRIT (BEAKER) (test bzjo=992) 38.5 % 40.1-51.0 MEAN CORPUSCULAR VOLUME (BEAKER) (test ihxu=091) 92.5 fL 79.0-92.2 MEAN CORPUSCULAR HEMOGLOBIN (BEAKER) (test 31.3 pg 25.7-32.2 hgyf=476) MEAN CORPUSCULAR HEMOGLOBIN CONC (BEAKER) (test 33.8 GM/DL 32.3-36.5 rnap=410) RED CELL DISTRIBUTION WIDTH (BEAKER) (test 15.2 % 11.6-14.4 tppz=946) PLATELET COUNT (BEAKER) (test plmm=969) 145 K/CU MM 150-450 MEAN PLATELET VOLUME (BEAKER) (test wuaz=901) 10.3 fL 9.4-12.4 NUCLEATED RED BLOOD CELLS (BEAKER) (test 0 /100 WBC 0-0 uquk=169) (CELLAVISION MANUAL DIFF)2018-06-18 12:37:00 Test Item Value Reference Range Comments NEUTROPHILS - REL (CELLAVISION)(BEAKER) (test 72 % qmxc=3144) LYMPHOCYTES - REL (CELLAVISION)(BEAKER) (test 2 % rwtr=9655) BANDS - REL (CELLAVISION)(BEAKER) (test umag=8890) 25 % 0-10 ATYPICAL LYMPHOCYTES - REL (CELLAVISION)(BEAKER) 1 % 0-0 (test dwrp=2475) NEUTROPHILS - ABS (CELLAVISION)(BEAKER) (test 6.12 K/ul 1.78-5.38 wkky=7255) LYMPHOCYTES - ABS (CELLAVISION)(BEAKER) (test 0.17 K/ul 1.32-3.57 jkwh=3630) BANDS - ABS (CELLAVISION)(BEAKER) (test ljch=3711) 2.13 K/uL 0.00-0.80 ATYPICAL LYMPHOCYTES - ABS (CELLAVISION)(BEAKER) 0.09 K/uL 0.00-0.00 (test fkdj=3789) TOTAL COUNTED (BEAKER) (test htst=9613) 100 RBC MORPHOLOGY (BEAKER) (test soag=309) Normal SMUDGE CELLS (BEAKER) (test lrco=6138) Present GIANT PLATELETS (BEAKER) (test ncug=928) Present TOXIC GRANULATION (BEAKER) (test ztls=567) Present PLATELET CONCENTRATION (CELLAVISION)(BEAKER) (test Decreased qmdh=5587) Received comment: User comments: Slide comments:BASIC METABOLIC [id number] 12:04:00 Test Item Value Reference Range Comments SODIUM (BEAKER) (test 130 meq/L 136-145 dpkn=616) POTASSIUM (BEAKER) (test 3.1 meq/L 3.5-5.1 yhet=765) CHLORIDE (BEAKER) (test 93 meq/L 98-107 newg=663) CO2 (BEAKER) (test 27 meq/L 22-29 dzjk=654) BLOOD UREA NITROGEN < mg/dL 7-21 (BEAKER) (test gwqr=180) CREATININE (BEAKER) (test 0.66 mg/dL 0.57-1.25 wovs=759) GLUCOSE RANDOM (BEAKER) 157 mg/dL 70-105 (test ipem=983) CALCIUM (BEAKER) (test 8.6 mg/dL 8.4-10.2 vhbj=079) EGFR (BEAKER) (test 129 mL/min/1.73 sq m ESTIMATED GFR IS NOT xryu=8986) ACCURATE CREATININE CLEARANCE IN PREDICTING GLOMERULAR FILTRATION RATE. ESTIMATED GFR IS NOT APPLICABLE FOR DIALYSIS PATIENTS. VANCOMYCIN LEVEL, [id number] 12:02:00 Test Item Value Reference Range Comments VANCOMYCIN RANDOM (BEAKER) (test zdqw=915) 1.3 ug/mL Reference Range: No [id number] 12:00:00 Test Item Value Reference Range Comments MAGNESIUM (BEAKER) (test ugfw=487) 2.2 mg/dL 1.6-2.6 SPUTUM CULTURE + GRAM [id number] 11:45:00 Test Item Value Reference Range Comments CULTURE (BEAKER) (test PSEUDOMONAS AERUGINOSA 4+ Pseudomonas mcje=0798) aeruginosa Amikacin (test code=1) Susceptible 0-16 , [...] CULTURE (BEAKER) (test PSEUDOMONAS AERUGINOSA 4+ Pseudomonas owxr=9857) aeruginosa Amikacin (test code=1) Susceptible 0-16 , [...] GRAM STAIN RESULT 1+ WBCs (BEAKER) (test sfpj=2561) GRAM STAIN RESULT 15-20 epithelial cells (BEAKER) (test lmww=873491) GRAM STAIN RESULT <1+ gram negative (BEAKER) (test coccobacilli irzd=109758) GRAM STAIN RESULT <1+ gram positive (BEAKER) (test cocci in pairs utcu=455618) GRAM STAIN RESULT <1+ yeast with (BEAKER) (test pseudohyphae hcye=502513) GRAM STAIN RESULT 1+ gram variable rods (BEAKER) (test lzgh=406159) 1+ Normal respiratory maximo presentC W/PLT COUNT & AUTO [id number] 18:36:00 Test Item Value Reference Range Comments WHITE BLOOD CELL COUNT (BEAKER) (test oeow=427) 7.3 K/ L 3.5-10.5 RED BLOOD CELL COUNT (BEAKER) (test ybqg=755) 4.53 M/ L 4.63-6.08 HEMOGLOBIN (BEAKER) (test lxeh=302) 14.4 GM/DL 13.7-17.5 HEMATOCRIT (BEAKER) (test eizd=357) 42.2 % 40.1-51.0 MEAN CORPUSCULAR VOLUME (BEAKER) (test evpz=268) 93.2 fL 79.0-92.2 MEAN CORPUSCULAR HEMOGLOBIN (BEAKER) (test 31.8 pg 25.7-32.2 ejpz=953) MEAN CORPUSCULAR HEMOGLOBIN CONC (BEAKER) (test 34.1 GM/DL 32.3-36.5 agqr=344) RED CELL DISTRIBUTION WIDTH (BEAKER) (test 15.0 % 11.6-14.4 zodw=991) PLATELET COUNT (BEAKER) (test iaoc=679) 170 K/CU MM 150-450 MEAN PLATELET VOLUME (BEAKER) (test avns=480) 10.1 fL 9.4-12.4 NUCLEATED RED BLOOD CELLS (BEAKER) (test 0 /100 WBC 0-0 hcez=570) NEUTROPHILS RELATIVE PERCENT (BEAKER) (test 92 % hcol=818) LYMPHOCYTES RELATIVE PERCENT (BEAKER) (test 4 % vcet=192) MONOCYTES RELATIVE PERCENT (BEAKER) (test 2 % rmxr=892) EOSINOPHILS RELATIVE PERCENT (BEAKER) (test 0 % xsqh=798) BASOPHILS RELATIVE PERCENT (BEAKER) (test 0 % djac=892) NEUTROPHILS ABSOLUTE COUNT (BEAKER) (test 6.75 K/ L 1.78-5.38 btjc=032) LYMPHOCYTES ABSOLUTE COUNT (BEAKER) (test 0.27 K/ L 1.32-3.57 ztok=318) MONOCYTES ABSOLUTE COUNT (BEAKER) (test 0.15 K/ L 0.30-0.82 yfvr=091) EOSINOPHILS ABSOLUTE COUNT (BEAKER) (test 0.00 K/ L 0.04-0.54 oyks=193) BASOPHILS ABSOLUTE COUNT (BEAKER) (test 0.02 K/ L 0.01-0.08 cgrb=525) IMMATURE GRANULOCYTES-RELATIVE PERCENT (BEAKER) 2 % 0-1 (test tlnq=4921) [id number] 14:37:00 Test Item Value Reference Range Comments PROCALCITONIN (BEAKER) (test zpoe=0564) 0.08 ng/mL <0.05 SEPSIS RISK (ng/mL)Low: 0.05-0.50Intermediate: 0.51-2.00High: & gt;=2.01LACTIC ACID, [id number] 13:43:00 Test Item Value Reference Range Comments LACTATE BLOOD VENOUS (2) 2.4 mmol/L 0.5-2.2 Specimen slightly hemolyzed (BEAKER) (test qtgh=6494) TISSUE [id number] 13:24:00Surgical Pathology Report Case: [id number] Authorizing Provider: Jennfier Fraire MD Collected: 06/09/2018 1735 Ordering Location: [address] Received: 06/10/2018 0811 Cardiovascular Pathologist: Jennifer [...] carcinoma is seen. Thebiopsy may not be customer support representative of the entirelesion; Clinical correlation is recommended.95896; 71247; 50369Fbbrwcpfz mass Left subglottic massThe specimen is received in a fluidless container labeled with patient information and labeled "left supraglottic mass" consisting of four fragments of red soft tissue ranging from 0.1 to 0.4 cm, submitted entirely A1. CG/pl PERFORMEDThe interpretation of this case included the use of immunohistochemistry or special stains. p53 and AE1/DO2Pbipaitvfpnmcrthzmmu technical testing was performed at [facility], Pathology Laboratory where it was developed [...] ESOPH, SWALLOW FUNCTION , WITH CINE OR [id number] 12:08:00Reason for exam:->silent aspiration evaluationFINAL REPORT Modified [...] MDReport Verified Date/Time: 06/17/2018 12:08:38 Reading Location: [address] Consult Reading Room [id number] 09:44:00 Test Item Value Reference Range Comments MAGNESIUM (BEAKER) (test rwao=393) 1.9 mg/dL 1.6-2.6 [id number] 09:44:00 Test Item Value Reference Range Comments PHOSPHORUS (BEAKER) (test kkgc=570) 2.9 mg/dL 2.3-4.7 RAD, CHEST, 1 VIEW, NON [id number] 08:16:00Reason for exam:->SOBShould this be performed at [...] MDReport Verified Date/Time: 06/17/2018 08:16:46 Reading Location: [facility] Radiology Reading Room BASIC METABOLIC [id number] 06:25:00 Test Item Value Reference Range Comments SODIUM (BEAKER) (test 134 meq/L 136-145 bpfj=222) POTASSIUM (BEAKER) (test 3.7 meq/L 3.5-5.1 gyop=864) CHLORIDE (BEAKER) (test 95 meq/L 98-107 ojzd=470) CO2 (BEAKER) (test 31 meq/L 22-29 mzrz=017) BLOOD UREA NITROGEN 15 mg/dL 7-21 (BEAKER) (test turl=249) CREATININE (BEAKER) (test 0.77 mg/dL 0.57-1.25 dwqi=517) GLUCOSE RANDOM (BEAKER) 89 mg/dL 70-105 (test yyem=346) CALCIUM (BEAKER) (test 8.9 mg/dL 8.4-10.2 ojsy=855) EGFR (BEAKER) (test 108 mL/min/1.73 sq m ESTIMATED GFR IS NOT mulz=1173) ACCURATE CREATININE CLEARANCE IN PREDICTING GLOMERULAR FILTRATION RATE. ESTIMATED GFR IS NOT APPLICABLE FOR DIALYSIS PATIENTS. VANCOMYCIN LEVEL, [id number] 06:25:00 Test Item Value Reference Range Comments VANCOMYCIN RANDOM (BEAKER) (test xzxl=965) 9.6 ug/mL Reference Range: No NormalsDraw 30 min prior to scheduled dose, HOLD if level & gt; 20 mcg/mL, informMD.RESPIRATORY PANEL [id number] 12:23:00 Test Item Value Reference Range Comments HUMAN METAPNEUMOVIRUS Not detected Not detected, (BEAKER) (test tuio=3105) Equivocal RHINOVIRUS (BEAKER) (test Not detected Not detected, dzxx=5522) Equivocal INFLUENZA A (BEAKER) (test Not detected Not detected, ypzv=7383) Equivocal INFLUENZA A (NO SUBTYPE) Not detected, (test rlvj=2054) Equivocal INFLUENZA A SUBTYPE H1 Not detected, (BEAKER) (test aeqn=6476) Equivocal INFLUENZA A SUBTYPE H3 Not detected, (BEAKER) (test fjxe=1133) Equivocal INFLUENZA A SUBTYPE H1-2009 Not detected, (BEAKER) (test kizn=4016) Equivocal INFLUENZA B (BEAKER) (test Not detected Not detected, qsjn=4548) Equivocal RESPIRATORY SYNCYTIAL VIRUS Not detected Not detected, (BEAKER) (test txtp=4080) Equivocal PARAINFLUENZA VIRUS 1 Not detected Not detected, (BEAKER) (test afig=0958) Equivocal PARAINFLUENZA VIRUS 2 Not detected Not detected, (BEAKER) (test ajma=0193) Equivocal PARAINFLUENZA VIRUS 3 Not detected Not detected, (BEAKER) (test asbq=4911) Equivocal PARAINFLUENZA VIRUS 4 Not detected Not detected, (BEAKER) (test irhl=8250) Equivocal ADENOVIRUS (BEAKER) (test Not detected Not detected, ipnd=4614) Equivocal CORONAVIRUS 229E (BEAKER) Detected Not detected, Droplet isolation. (test onmh=0805) Equivocal Consider stopping antibiotics. CORONAVIRUS HKU1 (BEAKER) Not detected Not detected, (test dgun=2709) Equivocal CORONAVIRUS NL63 (BEAKER) Not detected Not detected, (test hirb=2659) Equivocal CORONAVIRUS OC43 (BEAKER) Not detected Not detected, (test vqst=1410) Equivocal BORDETELLA PERTUSSIS (BEAKER) Not detected Not detected, (test piko=8715) Equivocal CHLAMYDOPHILA PNEUMONIAE Not detected Not detected, (BEAKER) (test hdbp=6630) Equivocal MYCOPLASMA PNEUMONIAE Not detected Not detected, (BEAKER) (test degp=6484) Equivocal Other viruses and bacteria not targeted by this PCR panel cannot be excluded; therefore clinical correlation and follow up of serology, culture results, and other molecular studies is required. The results are not intended to be used as the sole means for clinical diagnosis or patient management decisions. This sample was tested at the [facility] using the MiTurnoArray Respiratory Panel. It is FDA cleared and has been verified and approved by the [facility] for clinical use on nasal swab specimens. It is not FDA-cleared for use on bronchial wash/lavage samples. However, for this sample type, validation was performed and test characteristics were determined and approved, by [facility] for clinical use under the Clinical Laboratory Improvement Amendments (CLIA) of 1988 requirements. Therefore, FDA clearance isnot required. This laboratory is CLIA-certified and [employer] ([employer])-accredited to perform high complexity testing.CBC W/PLT COUNT & AUTO [id number] 11:27:00 Test Item Value Reference Range Comments WHITE BLOOD CELL COUNT (BEAKER) (test jpyx=466) 10.5 K/ L 3.5-10.5 RED BLOOD CELL COUNT (BEAKER) (test fwgw=976) 4.20 M/ L 4.63-6.08 HEMOGLOBIN (BEAKER) (test lhau=847) 13.6 GM/DL 13.7-17.5 HEMATOCRIT (BEAKER) (test ibzd=400) 40.5 % 40.1-51.0 MEAN CORPUSCULAR VOLUME (BEAKER) (test ljve=962) 96.4 fL 79.0-92.2 MEAN CORPUSCULAR HEMOGLOBIN (BEAKER) (test 32.4 pg 25.7-32.2 dktn=498) MEAN CORPUSCULAR HEMOGLOBIN CONC (BEAKER) (test 33.6 GM/DL 32.3-36.5 evdc=728) RED CELL DISTRIBUTION WIDTH (BEAKER) (test 15.1 % 11.6-14.4 ppjy=176) PLATELET COUNT (BEAKER) (test ggco=374) 142 K/CU MM 150-450 MEAN PLATELET VOLUME (BEAKER) (test krlj=922) 10.3 fL 9.4-12.4 NUCLEATED RED BLOOD CELLS (BEAKER) (test 0 /100 WBC 0-0 tsux=789) (CELLAVISION MANUAL DIFF)2018-06-16 11:27:00 Test Item Value Reference Range Comments NEUTROPHILS - REL (CELLAVISION)(BEAKER) (test 51 % tbnn=3158) LYMPHOCYTES - REL (CELLAVISION)(BEAKER) (test 1 % ytij=0907) MONOCYTES - REL (CELLAVISION)(BEAKER) (test 2 % auul=6046) MYELOCYTES - REL (CELLAVISION)(BEAKER) (test 1 % 0-0 njyk=5505) PROMYELOCYTES - REL (CELLAVSION)(BEAKER) (test 1 % 0-0 xhvt=4561) BANDS - REL (CELLAVISION)(BEAKER) (test 44 % 0-10 ptnv=5661) NEUTROPHILS - ABS (CELLAVISION)(BEAKER) (test 5.36 K/ul 1.78-5.38 exqn=5270) LYMPHOCYTES - ABS (CELLAVISION)(BEAKER) (test 0.11 K/ul 1.32-3.57 ickg=1094) MONOCYTES - ABS (CELLAVISION)(BEAKER) (test 0.21 K/uL 0.30-0.82 lslj=3500) MYELOCYTES-ABS (CELLAVISION)(BEAKER) (test 0.11 K/uL 0.00-0.00 nzsk=0490) PROMYELOCYTES - ABS (CELLAVISION)(BEAKER) (test 0.11 K/uL 0.00-0.00 pjjt=3817) BANDS - ABS (CELLAVISION)(BEAKER) (test 4.62 K/uL 0.00-0.80 zzls=4132) TOTAL COUNTED (BEAKER) (test hcvu=4333) 100 MANUAL NRBC PER 100 CELLS (BEAKER) (test 1 /100 WBC 0-0 gsmv=3688) SMUDGE CELLS (BEAKER) (test spoy=3993) Present GIANT PLATELETS (BEAKER) (test vrnn=795) Present POLYCHROMATOPHILLIC RBCS(BEAKER) (test eklo=418) 1+ few ANISOCYTOSIS (BEAKER) (test cimm=529) 1+ few MICROCYTES (BEAKER) (test exuu=896) 1+ few POIKILOCYTES (BEAKER) (test nalw=695) 1+ few ARTIFACT (CELLAVISION)(BEAKER) (test fxaq=0153) Present PLATELET CONCENTRATION (CELLAVISION)(BEAKER) Adequate (test vezu=4651) Received comment: User comments: Slide comments:CT, CHEST WITH IV CONTRAST- PE TEST [id number] 09:53:00Worsening hypoxia s/o diagnosis and excision of [...] MDReport Verified Date/Time: 06/16/2018 09:53:01 Reading Location: [facility] Diagnostic Imaging Reading Room - [place] [address] RAD, CHEST, 1 VIEW, NON [id number] 07:36:00Reason for exam:->recent pneumothorax, new trachShould [...] MDReport Verified Date/Time: 06/16/2018 07:36:27 Reading Location: [facility] Radiology Reading Room 07: 36 AMBASIC METABOLIC [id number] 05:45:00 Test Item Value Reference Range Comments SODIUM (BEAKER) (test 132 meq/L 136-145 ymvg=200) POTASSIUM (BEAKER) (test 3.9 meq/L 3.5-5.1 pjzf=994) CHLORIDE (BEAKER) (test 92 meq/L 98-107 fwux=720) CO2 (BEAKER) (test 27 meq/L 22-29 xhsx=506) BLOOD UREA NITROGEN 13 mg/dL 7-21 (BEAKER) (test fzaj=241) CREATININE (BEAKER) (test 0.83 mg/dL 0.57-1.25 qhqw=807) GLUCOSE RANDOM (BEAKER) 129 mg/dL 70-105 (test jnco=776) CALCIUM (BEAKER) (test 9.5 mg/dL 8.4-10.2 bpkl=138) EGFR (BEAKER) (test 99 mL/min/1.73 sq m ESTIMATED GFR IS NOT zmas=3577) ACCURATE CREATININE CLEARANCE IN PREDICTING GLOMERULAR FILTRATION RATE. ESTIMATED GFR IS NOT APPLICABLE FOR DIALYSIS PATIENTS. [id number] 18:12:00 Test Item Value Reference Range Comments MAGNESIUM (BEAKER) (test 2.0 mg/dL 1.6-2.6 Specimen slightly hemolyzed doqd=946) BASIC METABOLIC [id number] 18:12:00 Test Item Value Reference Range Comments SODIUM (BEAKER) (test 130 meq/L 136-145 phab=216) POTASSIUM (BEAKER) (test 3.7 meq/L 3.5-5.1 Specimen slightly gfwf=404) hemolyzed CHLORIDE (BEAKER) (test 91 meq/L 98-107 dhsp=964) CO2 (BEAKER) (test 27 meq/L 22-29 fjcd=829) BLOOD UREA NITROGEN 14 mg/dL 7-21 (BEAKER) (test cyuq=634) CREATININE (BEAKER) (test 0.78 mg/dL 0.57-1.25 Specimen slightly xcmv=674) hemolyzed GLUCOSE RANDOM (BEAKER) 85 mg/dL 70-105 (test jukw=878) CALCIUM (BEAKER) (test 8.9 mg/dL 8.4-10.2 vfzf=489) EGFR (BEAKER) (test 107 mL/min/1.73 sq m ESTIMATED GFR IS NOT jwrf=3759) ACCURATE CREATININE CLEARANCE IN PREDICTING GLOMERULAR FILTRATION RATE. ESTIMATED GFR IS NOT APPLICABLE FOR DIALYSIS PATIENTS. RAD, CHEST, 1 VIEW, NON [id number] 13:18:00Reason for exam:->recent pneumothorax, new trachShould this [...] Additional findings: None. Signed: JR Humberto, [facility] Verified Date/Time: 06/15/2018 13:18:45 Reading Location: [address] Neuro Reading Room BLOOD GAS, [id number] 11:41:00 Test Item Value Reference Range Comments PH ARTERIAL (BEAKER) (test acel=253) 7.50 7.35-7.45 PCO2 ARTERIAL (BEAKER) (test rztq=878) 40 mmHg 35-45 PO2 ARTERIAL (BEAKER) (test pwip=912) 335 mmHg 80-90 O2 SATURATION ARTERIAL (BEAKER) (test djqg=253) 99.8 % 96.0-97.0 HCO3 ARTERIAL (BEAKER) (test oivh=029) 29 mmol/L 21-29 BASE EXCESS ARTERIAL (BEAKER) (test vmgj=483) 6.5 mmol/L -2.0-3.0 PATIENT TEMPERATURE (BEAKER) (test zerd=0131) 39.3 C FIO2 (BEAKER) (test xwws=8428) 100.0 % Obtain one hour post initaition of vent support \\[id number]\\[id number] [id number] 09: 49:00 Test Item Value Reference Range Comments TROPONIN I (BEAKER) (test hshi=886) < ng/mL 0.00-0.03 Troponin I (TnI) levels [...] Range Comments B-TYPE NATRIURETIC PEPTIDE (BEAKER) (test gdwc=707) 66 pg/mL 0-100 [id number] 09:29:00 Test Item Value Reference Range Comments D-DIMER QUANTITATIVE (BEAKER) (test aaye=656) 1.59 MG/L FEU <0.50 Intended Use: The D-Dimer Assay can be used to aid in the diagnosis of Deep Vein Thrombosis (DVT) and Pulmonary Embolism Disease (PED).In patients with low pre-test probability, various studies concerning STA Liatest D-dimer test have reported that with a cutoff value of 0.50 MG/L FEU, the Negative Predictive Value (NPV) regarding the exclusion of thrombosis is within 95-100% range.[id number] 09:12:00 Test Item Value Reference Range Comments FIBRINOGEN LEVEL (BEAKER) (test tbfy=716) 621 mg/dl 225-434 [id number] 09:10:00 Test Item Value Reference Range Comments PHOSPHORUS (BEAKER) (test hwui=959) 2.8 mg/dL 2.3-4.7 [id number] 09:10:00 Test Item Value Reference Range Comments MAGNESIUM (BEAKER) (test jfvr=345) 1.9 mg/dL 1.6-2.6 COMPREHENSIVE METABOLIC [id number] 09:10:00 Test Item Value Reference Range Comments TOTAL PROTEIN (BEAKER) 5.9 gm/dL 6.0-8.3 (test tjpt=480) ALBUMIN (BEAKER) (test 3.3 g/dL 3.5-5.0 tkca=7391) ALKALINE PHOSPHATASE 73 U/L 40-150 (BEAKER) (test gkcz=211) BILIRUBIN TOTAL (BEAKER) 1.3 mg/dL 0.2-1.2 (test vqvy=596) SODIUM (BEAKER) (test 127 meq/L 136-145 qhpu=542) POTASSIUM (BEAKER) (test 3.8 meq/L 3.5-5.1 lkvw=930) CHLORIDE (BEAKER) (test 89 meq/L 98-107 mfef=048) CO2 (BEAKER) (test 28 meq/L 22-29 nbqj=617) BLOOD UREA NITROGEN 14 mg/dL 7-21 (BEAKER) (test jvks=113) CREATININE (BEAKER) (test 0.78 mg/dL 0.57-1.25 zsir=388) GLUCOSE RANDOM (BEAKER) 87 mg/dL 70-105 (test owph=963) CALCIUM (BEAKER) (test 8.8 mg/dL 8.4-10.2 itwp=147) AST (SGOT) (BEAKER) (test 23 U/L 5-34 onbo=925) ALT (SGPT) (BEAKER) (test 26 U/L 6-55 hvyd=733) EGFR (BEAKER) (test 107 mL/min/1.73 sq ESTIMATED GFR IS NOT hfek=7953) m ACCURATE CREATININE CLEARANCE IN PREDICTING GLOMERULAR FILTRATION RATE. ESTIMATED GFR IS NOT APPLICABLE FOR DIALYSIS PATIENTS. [id number] 09:01:00 Test Item Value Reference Range Comments PROTIME (BEAKER) (test fmfe=025) 15.2 seconds 11.7-14.7 INR (BEAKER) (test aidt=005) 1.2 <=5.9 PARTIAL THROMBOPLASTIN TIME (BEAKER) (test 31.6 seconds 22.5-36.0 ofzx=409) RECOMMENDED COUMADIN/WARFARIN INR THERAPY RANGESSTANDARD DOSE: 2.0 - 3.0 Includes: PROPHYLAXIS forvenous thrombosis, systemic embolization; TREATMENT for venous thrombosis and/or pulmonary embolus.HIGH RISK: Target INR is 2.5-3.5 for patients with mechanical heart valves.LACTIC ACID, [id number] 08:51: 00 Test Item Value Reference Range Comments LACTATE BLOOD ARTERIAL (2) 0.8 mmol/L 0.5-2.2 Specimen slightly hemolyzed (BEAKER) (test fupm=2081) BLOOD GAS, [id number] 08:40:00 Test Item Value Reference Range Comments PH ARTERIAL (BEAKER) (test nige=708) 7.51 7.35-7.45 PCO2 ARTERIAL (BEAKER) (test woes=450) 40 mmHg 35-45 PO2 ARTERIAL (BEAKER) (test wlfj=184) 58 mmHg 80-90 O2 SATURATION ARTERIAL (BEAKER) (test bodj=407) 90.0 % 96.0-97.0 HCO3 ARTERIAL (BEAKER) (test xmnh=912) 31 mmol/L 21-29 BASE EXCESS ARTERIAL (BEAKER) (test yeva=088) 8.3 mmol/L -2.0-3.0 PATIENT TEMPERATURE (BEAKER) (test wuzb=5727) 39.1 C FIO2 (BEAKER) (test xrfr=1968) 80.0 % [id number] 08:00:00 Test Item Value Reference Range Comments MAGNESIUM (BEAKER) (test hguu=168) 1.8 mg/dL 1.6-2.6 Add onCBC W/PLT COUNT & AUTO [id number] 06:45:00 Test Item Value Reference Range Comments WHITE BLOOD CELL COUNT (BEAKER) (test padq=002) 10.2 K/ L 3.5-10.5 RED BLOOD CELL COUNT (BEAKER) (test dwuu=301) 4.12 M/ L 4.63-6.08 HEMOGLOBIN (BEAKER) (test glhx=025) 13.2 GM/DL 13.7-17.5 HEMATOCRIT (BEAKER) (test xzwu=118) 40.8 % 40.1-51.0 MEAN CORPUSCULAR VOLUME (BEAKER) (test xkvn=579) 99.0 fL 79.0-92.2 MEAN CORPUSCULAR HEMOGLOBIN (BEAKER) (test 32.0 pg 25.7-32.2 dvqm=016) MEAN CORPUSCULAR HEMOGLOBIN CONC (BEAKER) (test 32.4 GM/DL 32.3-36.5 llrq=520) RED CELL DISTRIBUTION WIDTH (BEAKER) (test 15.2 % 11.6-14.4 fwqx=306) PLATELET COUNT (BEAKER) (test jnjn=052) 146 K/CU MM 150-450 MEAN PLATELET VOLUME (BEAKER) (test dztw=965) 9.9 fL 9.4-12.4 NUCLEATED RED BLOOD CELLS (BEAKER) (test 0 /100 WBC 0-0 slxy=339) NEUTROPHILS RELATIVE PERCENT (BEAKER) (test 92 % byxf=965) LYMPHOCYTES RELATIVE PERCENT (BEAKER) (test 3 % gedv=730) MONOCYTES RELATIVE PERCENT (BEAKER) (test 2 % eack=831) EOSINOPHILS RELATIVE PERCENT (BEAKER) (test 0 % fvvs=750) BASOPHILS RELATIVE PERCENT (BEAKER) (test 0 % lhjw=235) NEUTROPHILS ABSOLUTE COUNT (BEAKER) (test 9.38 K/ L 1.78-5.38 stvv=170) LYMPHOCYTES ABSOLUTE COUNT (BEAKER) (test 0.30 K/ L 1.32-3.57 lojf=463) MONOCYTES ABSOLUTE COUNT (BEAKER) (test 0.23 K/ L 0.30-0.82 ilzl=321) EOSINOPHILS ABSOLUTE COUNT (BEAKER) (test 0.00 K/ L 0.04-0.54 ujap=285) BASOPHILS ABSOLUTE COUNT (BEAKER) (test 0.03 K/ L 0.01-0.08 btip=820) IMMATURE GRANULOCYTES-RELATIVE PERCENT (BEAKER) 3 % 0-1 (test cgam=2397) BASIC METABOLIC [id number] 06:35:00 Test Item Value Reference Range Comments SODIUM (BEAKER) (test 127 meq/L 136-145 rcor=665) POTASSIUM (BEAKER) (test 3.8 meq/L 3.5-5.1 xago=615) CHLORIDE (BEAKER) (test 91 meq/L 98-107 nrwp=859) CO2 (BEAKER) (test 27 meq/L 22-29 rpul=454) BLOOD UREA NITROGEN 12 mg/dL 7-21 (BEAKER) (test qvjm=460) CREATININE (BEAKER) (test 0.75 mg/dL 0.57-1.25 ulxl=770) GLUCOSE RANDOM (BEAKER) 88 mg/dL 70-105 (test vqzi=604) CALCIUM (BEAKER) (test 8.6 mg/dL 8.4-10.2 ncua=264) EGFR (BEAKER) (test 112 mL/min/1.73 sq m ESTIMATED GFR IS NOT nndm=8909) ACCURATE CREATININE CLEARANCE IN PREDICTING GLOMERULAR FILTRATION RATE. ESTIMATED GFR IS NOT APPLICABLE FOR DIALYSIS PATIENTS. RAD, CHEST, 1 VIEW, NON [id number] 05:10:00Reason for exam:->sob, tachypneaShould this be performed [...] Carrilloeport Verified Date/Time: 06/15/2018 05:10:33 Reading Location: [address] Reading Room POCT-LACTIC ACID, [id number] 04:30:00 Test Item Value Reference Range Comments POC-LACTIC ACID, VENOUS 1.1 mmol/L 0.9-1.7 TESTED AT [facility] [address] [facility] (BEAKER) (test lfkj=4904) [facility] [address] URINALYSIS W/ REFLEX URINE [id number] 20:03:00 Test Item Value Reference Range Comments COLOR (BEAKER) (test acdr=210) Light Yellow CLARITY (BEAKER) (test cmhe=311) Hazy SPECIFIC GRAVITY UA (BEAKER) (test juhi=881) 1.014 1.001-1.035 PH UA (BEAKER) (test kklt=920) 7.5 5.0-8.0 PROTEIN UA (BEAKER) (test mdoh=236) Negative Negative GLUCOSE UA (BEAKER) (test zjwa=743) Negative Negative KETONES UA (BEAKER) (test oxjn=133) Negative Negative BILIRUBIN UA (BEAKER) (test wieu=122) Negative Negative BLOOD UA (BEAKER) (test vgtz=567) Negative Negative NITRITE UA (BEAKER) (test xure=406) Negative Negative LEUKOCYTE ESTERASE UA (BEAKER) (test ghba=586) Negative Negative UROBILINOGEN UA (BEAKER) (test esos=018) 0.2 mg/dL 0.2-1.0 RBC UA (BEAKER) (test shwu=920) 0 /HPF WBC UA (BEAKER) (test rtse=022) 0 /HPF BACTERIA (BEAKER) (test cppu=017) Few MUCUS (BEAKER) (test lugr=9492) Rare HYALINE CASTS (BEAKER) (test qnsd=733) 3 /LPF SOURCE(BEAKER) (test cpqc=1567) RAD, CHEST, 1 VIEW, NON [id number] 19:10:00Reason for exam:->SUSUPECTED INFECTIONShould this be performed [...] Verified Date/Time: 06/14/2018 19:10: 10 Reading Location: [address] Reading Room CBC W/PLT COUNT & AUTO [id number] 04:36:00 Test Item Value Reference Range Comments WHITE BLOOD CELL COUNT (BEAKER) (test tnqd=955) 11.4 K/ L 3.5-10.5 RED BLOOD CELL COUNT (BEAKER) (test gkde=206) 4.37 M/ L 4.63-6.08 HEMOGLOBIN (BEAKER) (test xmfc=175) 14.1 GM/DL 13.7-17.5 HEMATOCRIT (BEAKER) (test yxbh=904) 44.0 % 40.1-51.0 MEAN CORPUSCULAR VOLUME (BEAKER) (test xvwf=445) 100.7 fL 79.0-92.2 MEAN CORPUSCULAR HEMOGLOBIN (BEAKER) (test 32.3 pg 25.7-32.2 idwt=944) MEAN CORPUSCULAR HEMOGLOBIN CONC (BEAKER) (test 32.0 GM/DL 32.3-36.5 cpzr=331) RED CELL DISTRIBUTION WIDTH (BEAKER) (test 14.4 % 11.6-14.4 hgon=303) PLATELET COUNT (BEAKER) (test psxm=527) 188 K/CU MM 150-450 MEAN PLATELET VOLUME (BEAKER) (test ncrq=670) 10.7 fL 9.4-12.4 NUCLEATED RED BLOOD CELLS (BEAKER) (test 0 /100 WBC 0-0 iodl=034) NEUTROPHILS RELATIVE PERCENT (BEAKER) (test 95 % hvsc=971) LYMPHOCYTES RELATIVE PERCENT (BEAKER) (test 1 % fwwr=043) MONOCYTES RELATIVE PERCENT (BEAKER) (test 2 % bcuw=455) EOSINOPHILS RELATIVE PERCENT (BEAKER) (test 0 % rvdh=339) BASOPHILS RELATIVE PERCENT (BEAKER) (test 0 % pvcv=687) NEUTROPHILS ABSOLUTE COUNT (BEAKER) (test 10.81 K/ L 1.78-5.38 todv=662) LYMPHOCYTES ABSOLUTE COUNT (BEAKER) (test 0.16 K/ L 1.32-3.57 kiuz=837) MONOCYTES ABSOLUTE COUNT (BEAKER) (test 0.26 K/ L 0.30-0.82 ptqq=734) EOSINOPHILS ABSOLUTE COUNT (BEAKER) (test 0.00 K/ L 0.04-0.54 bkem=531) BASOPHILS ABSOLUTE COUNT (BEAKER) (test 0.03 K/ L 0.01-0.08 fhnp=553) IMMATURE GRANULOCYTES-RELATIVE PERCENT (BEAKER) 2 % 0-1 (test hvbe=6000) RAD, CHEST, 1 VIEW, NON [id number] 04:13:00Reason for exam:->recent pneumothorax, new trachShould this [...] Verified Date/ Time: 06/14/2018 04:13:50 Reading Location: [address] Transitional Reading Room BLOOD GAS, [id number] 01:01:00 Test Item Value Reference Range Comments PH ARTERIAL (BEAKER) (test qvsc=686) 7.45 7.35-7.45 PCO2 ARTERIAL (BEAKER) (test wnek=124) 41 mmHg 35-45 PO2 ARTERIAL (BEAKER) (test vuzt=701) 109 mmHg 80-90 O2 SATURATION ARTERIAL (BEAKER) (test qjyu=112) 98.2 % 96.0-97.0 HCO3 ARTERIAL (BEAKER) (test lmau=090) 28 mmol/L 21-29 BASE EXCESS ARTERIAL (BEAKER) (test xcks=031) 3.4 mmol/L -2.0-3.0 PATIENT TEMPERATURE (BEAKER) (test sbzr=9782) 36.7 C FIO2 (BEAKER) (test bfgl=2318) 40.0 % POCT-GLUCOSE [id number] 05:32:00 Test Item Value Reference Range Comments POC-GLUCOSE METER (BEAKER) 92 mg/dL 70-110 TESTED AT [address] (test qetj=2392) [facility] [address] RAD, CHEST, 1 VIEW, NON [id number] 05:03:00Reason for exam:->evaluate for pneumo r/t CTShould [...] Verified Date/ Time: 06/13/2018 05:03:31 Reading Location: [facility] Transitional Reading Room [id number] 04:22:00 Test Item Value Reference Range Comments PARTIAL THROMBOPLASTIN TIME (BEAKER) (test 27.4 seconds 22.5-36.0 uojp=504) PROTHROMBIN [id number] 04:21:00 Test Item Value Reference Range Comments PROTIME (BEAKER) (test qnpy=564) 13.8 seconds 11.7-14.7 INR (BEAKER) (test thpo=176) 1.1 <=5.9 RECOMMENDED COUMADIN/WARFARIN INR THERAPY RANGESSTANDARD DOSE: 2.0 - 3.0 Includes: PROPHYLAXIS forvenous thrombosis, systemic embolization; TREATMENT for venous thrombosis and/or pulmonary embolus.HIGH RISK: Target INR is 2.5-3.5 for patients with mechanical heart valves.[id number] 04:20:00 Test Item Value Reference Range Comments PHOSPHORUS (BEAKER) (test epql=198) 3.1 mg/dL 2.3-4.7 [id number] 04:20:00 Test Item Value Reference Range Comments MAGNESIUM (BEAKER) (test nudv=801) 2.0 mg/dL 1.6-2.6 BASIC METABOLIC [id number] 04:20:00 Test Item Value Reference Range Comments SODIUM (BEAKER) (test 140 meq/L 136-145 zfvg=678) POTASSIUM (BEAKER) (test 3.7 meq/L 3.5-5.1 jrys=807) CHLORIDE (BEAKER) (test 101 meq/L 98-107 tumy=716) CO2 (BEAKER) (test 30 meq/L 22-29 ruse=717) BLOOD UREA NITROGEN 13 mg/dL 7-21 (BEAKER) (test imcs=693) CREATININE (BEAKER) (test 0.74 mg/dL 0.57-1.25 zmfh=494) GLUCOSE RANDOM (BEAKER) 97 mg/dL 70-105 (test luks=117) CALCIUM (BEAKER) (test 9.2 mg/dL 8.4-10.2 goct=109) EGFR (BEAKER) (test 113 mL/min/1.73 sq m ESTIMATED GFR IS NOT pzig=7029) ACCURATE CREATININE CLEARANCE IN PREDICTING GLOMERULAR FILTRATION RATE. ESTIMATED GFR IS NOT APPLICABLE FOR DIALYSIS PATIENTS. CBC W/PLT COUNT & AUTO [id number] 04:14:00 Test Item Value Reference Range Comments WHITE BLOOD CELL COUNT (BEAKER) (test zedx=572) 11.6 K/ L 3.5-10.5 RED BLOOD CELL COUNT (BEAKER) (test ulfc=032) 4.30 M/ L 4.63-6.08 HEMOGLOBIN (BEAKER) (test imio=317) 13.9 GM/DL 13.7-17.5 HEMATOCRIT (BEAKER) (test rvlh=903) 43.3 % 40.1-51.0 MEAN CORPUSCULAR VOLUME (BEAKER) (test jdrl=562) 100.7 fL 79.0-92.2 MEAN CORPUSCULAR HEMOGLOBIN (BEAKER) (test 32.3 pg 25.7-32.2 rgak=899) MEAN CORPUSCULAR HEMOGLOBIN CONC (BEAKER) (test 32.1 GM/DL 32.3-36.5 gmko=729) RED CELL DISTRIBUTION WIDTH (BEAKER) (test 14.1 % 11.6-14.4 uisp=672) PLATELET COUNT (BEAKER) (test wqfa=977) 182 K/CU MM 150-450 MEAN PLATELET VOLUME (BEAKER) (test vgnq=946) 10.7 fL 9.4-12.4 NUCLEATED RED BLOOD CELLS (BEAKER) (test 0 /100 WBC 0-0 pdei=062) NEUTROPHILS RELATIVE PERCENT (BEAKER) (test 89 % odvy=399) LYMPHOCYTES RELATIVE PERCENT (BEAKER) (test 3 % mcpq=624) MONOCYTES RELATIVE PERCENT (BEAKER) (test 6 % elmq=739) EOSINOPHILS RELATIVE PERCENT (BEAKER) (test 0 % xtiz=566) BASOPHILS RELATIVE PERCENT (BEAKER) (test 0 % oywk=435) NEUTROPHILS ABSOLUTE COUNT (BEAKER) (test 10.26 K/ L 1.78-5.38 prei=205) LYMPHOCYTES ABSOLUTE COUNT (BEAKER) (test 0.39 K/ L 1.32-3.57 jsrd=726) MONOCYTES ABSOLUTE COUNT (BEAKER) (test 0.74 K/ L 0.30-0.82 yovq=887) EOSINOPHILS ABSOLUTE COUNT (BEAKER) (test 0.02 K/ L 0.04-0.54 xijx=873) BASOPHILS ABSOLUTE COUNT (BEAKER) (test 0.03 K/ L 0.01-0.08 khss=787) IMMATURE GRANULOCYTES-RELATIVE PERCENT (BEAKER) 1 % 0-1 (test xkvo=4470) POCT-GLUCOSE [id number] 00:14:00 Test Item Value Reference Range Comments POC-GLUCOSE METER (BEAKER) 126 mg/dL 70-110 TESTED AT [address] (test aoto=8442) [facility] [address] RAD, CHEST, 1 VIEW, NON [id number] 12:29:00Reason for exam:->s/p[ L thoracocentesisFINAL REPORT CLINICAL HISTORY: s/p[ L thoracocentesis TECHNIQUE: 1 view of the chest. COMPARISON: 06/12/2018 IMPRESSION: A tracheostomy tube is again seen. There is no pneumothorax. Bibasilar atelectasis is again noted. There is no significant appearing pleural fluid. The cardiomediastinal silhouette is magnified by technique. Signed: Jacqueline Hilliard MDReport Verified Date/Time:06/12/2018 12:29:27 Reading Location: [id number] Consult Reading Room POCT-GLUCOSE [id number] 12:10:00 Test Item Value Reference Range Comments POC-GLUCOSE METER (BEAKER) 194 mg/dL 70-110 TESTED AT [address] (test spfc=3184) [place] [address] CT, CHEST, WITH [id number] 10:26:00Premedicated for contrast allergy. With general anesthesia [...] Man Verified Date/Time: 06/12/2018 10:26:26 Reading Location: [facility] Diagnostic Imaging Reading Room - [place] [address], SOFT TISSUE NECK, [id number] 09:53: 00Premedicated for contrast allergy. With gneral [...] MDRnicolasort Verified Date/Time: 06/12/2018 09:53:06 Reading Location: [facility] B1 C013V Neuro Reading Room [id number] 06:00:00 Test Item Value Reference Range Comments PHOSPHORUS (BEAKER) (test muhf=538) 2.9 mg/dL 2.3-4.7 [id number] 06:00:00 Test Item Value Reference Range Comments MAGNESIUM (BEAKER) (test dkfg=238) 2.1 mg/dL 1.6-2.6 BASIC METABOLIC [id number] 06:00:00 Test Item Value Reference Range Comments SODIUM (BEAKER) (test 139 meq/L 136-145 ymcu=353) POTASSIUM (BEAKER) (test 3.9 meq/L 3.5-5.1 cgmo=785) CHLORIDE (BEAKER) (test 104 meq/L 98-107 evig=102) CO2 (BEAKER) (test 26 meq/L 22-29 zfqt=369) BLOOD UREA NITROGEN 13 mg/dL 7-21 (BEAKER) (test mudf=974) CREATININE (BEAKER) (test 0.65 mg/dL 0.57-1.25 xbnn=498) GLUCOSE RANDOM (BEAKER) 109 mg/dL 70-105 (test sptq=831) CALCIUM (BEAKER) (test 9.5 mg/dL 8.4-10.2 lbhs=101) EGFR (BEAKER) (test 132 mL/min/1.73 sq m ESTIMATED GFR IS NOT lhfc=0487) ACCURATE CREATININE CLEARANCE IN PREDICTING GLOMERULAR FILTRATION RATE. ESTIMATED GFR IS NOT APPLICABLE FOR DIALYSIS PATIENTS. POCT-GLUCOSE [id number] 05:44:00 Test Item Value Reference Range Comments POC-GLUCOSE METER (BEAKER) 157 mg/dL 70-110 TESTED AT [facility] [address] [facility] (test pkjp=0519) [facility] [address] CBC W/PLT COUNT & AUTO [id number] 04:29:00 Test Item Value Reference Range Comments WHITE BLOOD CELL COUNT (BEAKER) (test tnip=889) 17.3 K/ L 3.5-10.5 RED BLOOD CELL COUNT (BEAKER) (test erkf=685) 4.42 M/ L 4.63-6.08 HEMOGLOBIN (BEAKER) (test faqo=056) 14.4 GM/DL 13.7-17.5 HEMATOCRIT (BEAKER) (test smjf=396) 43.7 % 40.1-51.0 MEAN CORPUSCULAR VOLUME (BEAKER) (test njjg=919) 98.9 fL 79.0-92.2 MEAN CORPUSCULAR HEMOGLOBIN (BEAKER) (test 32.6 pg 25.7-32.2 fsjw=708) MEAN CORPUSCULAR HEMOGLOBIN CONC (BEAKER) (test 33.0 GM/DL 32.3-36.5 jfcj=704) RED CELL DISTRIBUTION WIDTH (BEAKER) (test 14.2 % 11.6-14.4 zezu=614) PLATELET COUNT (BEAKER) (test rpep=510) 180 K/CU MM 150-450 MEAN PLATELET VOLUME (BEAKER) (test pfrd=665) 10.9 fL 9.4-12.4 NUCLEATED RED BLOOD CELLS (BEAKER) (test 0 /100 WBC 0-0 aqzi=753) NEUTROPHILS RELATIVE PERCENT (BEAKER) (test 94 % vlob=111) LYMPHOCYTES RELATIVE PERCENT (BEAKER) (test 2 % qekw=392) MONOCYTES RELATIVE PERCENT (BEAKER) (test 3 % vjyp=803) EOSINOPHILS RELATIVE PERCENT (BEAKER) (test 0 % myxv=164) BASOPHILS RELATIVE PERCENT (BEAKER) (test 0 % gbuk=333) NEUTROPHILS ABSOLUTE COUNT (BEAKER) (test 16.28 K/ L 1.78-5.38 bhpe=812) LYMPHOCYTES ABSOLUTE COUNT (BEAKER) (test 0.28 K/ L 1.32-3.57 petk=617) MONOCYTES ABSOLUTE COUNT (BEAKER) (test 0.55 K/ L 0.30-0.82 kzdg=628) EOSINOPHILS ABSOLUTE COUNT (BEAKER) (test 0.00 K/ L 0.04-0.54 ywbp=763) BASOPHILS ABSOLUTE COUNT (BEAKER) (test 0.02 K/ L 0.01-0.08 dcdt=528) IMMATURE GRANULOCYTES-RELATIVE PERCENT (BEAKER) 1 % 0-1 (test gunb=0046) RAD, CHEST, 1 VIEW, NON [id number] 04:26:00Reason for exam:->evaluate for pneumo r/t CTShould this be performed at the bedside?->YesFINAL REPORT CLINICAL INDICATION: Support lines. Comparison: 2018 The cardiomediastinal contours are stable. The lung volumes remain low. The lateral pulmonary opacities are similar to previous within variation of acquisition technique. There is no pneumothorax. A tracheostomy tube is stable. Signed: Jakob Garcia MDReport Verified Date/Time: 06/12/2018 04:26:44 Reading Location: [address] Reading Room Electronically signed by: JAKOB GARCIA M.D. on06/12/2018 04:26 [id number] 04:02:00 Test Item Value Reference Range Comments PARTIAL THROMBOPLASTIN TIME (BEAKER) (test 29.1 seconds 22.5-36.0 cqun=822) PROTHROMBIN TIME/[id number] 04:01:00 Test Item Value Reference Range Comments PROTIME (BEAKER) (test qiwu=639) 13.4 seconds 11.7-14.7 INR (BEAKER) (test ihds=658) 1.0 <=5.9 RECOMMENDED COUMADIN/WARFARIN INR THERAPY RANGESSTANDARD DOSE: 2.0 - 3.0 Includes: PROPHYLAXIS forvenous thrombosis, systemic embolization; TREATMENT for venous thrombosis and/or pulmonary embolus.HIGH RISK: Target INR is 2.5-3.5 for patients with mechanical heart valves.POCT-GLUCOSE [id number] 00:10:00 Test Item Value Reference Range Comments POC-GLUCOSE METER (BEAKER) 225 mg/dL 70-110 TESTED AT [facility] [address] (test kbzg=3421) [facility] [address] POCT-GLUCOSE [id number] 06:14:00 Test Item Value Reference Range Comments POC-GLUCOSE METER (BEAKER) 129 mg/dL 70-110 TESTED AT [facility] [address] (test nwkn=6921) [facility] [address] TSH/FREE T4 IF [id number] 04:46:00 Test Item Value Reference Range Comments THYROID STIMULATING HORMONE (BEAKER) (test 0.87 uIU/mL 0.35-4.94 gpiq=767) CBC W/PLT COUNT & AUTO [id number] 04:30:00 Test Item Value Reference Range Comments WHITE BLOOD CELL COUNT (BEAKER) (test zmyn=400) 16.2 K/ L 3.5-10.5 RED BLOOD CELL COUNT (BEAKER) (test gtjo=647) 4.01 M/ L 4.63-6.08 HEMOGLOBIN (BEAKER) (test tflb=933) 12.9 GM/DL 13.7-17.5 HEMATOCRIT (BEAKER) (test olmd=917) 41.0 % 40.1-51.0 MEAN CORPUSCULAR VOLUME (BEAKER) (test zqto=229) 102.2 fL 79.0-92.2 MEAN CORPUSCULAR HEMOGLOBIN (BEAKER) (test 32.2 pg 25.7-32.2 vvzc=063) MEAN CORPUSCULAR HEMOGLOBIN CONC (BEAKER) (test 31.5 GM/DL 32.3-36.5 fspy=772) RED CELL DISTRIBUTION WIDTH (BEAKER) (test 14.5 % 11.6-14.4 fdcs=495) PLATELET COUNT (BEAKER) (test shod=112) 176 K/CU MM 150-450 MEAN PLATELET VOLUME (BEAKER) (test tgxu=874) 10.9 fL 9.4-12.4 NUCLEATED RED BLOOD CELLS (BEAKER) (test 0 /100 WBC 0-0 nfrh=231) NEUTROPHILS RELATIVE PERCENT (BEAKER) (test 93 % isgg=410) LYMPHOCYTES RELATIVE PERCENT (BEAKER) (test 2 % bgri=318) MONOCYTES RELATIVE PERCENT (BEAKER) (test 4 % sson=531) EOSINOPHILS RELATIVE PERCENT (BEAKER) (test 0 % trnm=489) BASOPHILS RELATIVE PERCENT (BEAKER) (test 0 % fjyp=324) NEUTROPHILS ABSOLUTE COUNT (BEAKER) (test 15.09 K/ L 1.78-5.38 judz=159) LYMPHOCYTES ABSOLUTE COUNT (BEAKER) (test 0.28 K/ L 1.32-3.57 gjmr=748) MONOCYTES ABSOLUTE COUNT (BEAKER) (test 0.60 K/ L 0.30-0.82 doxk=187) EOSINOPHILS ABSOLUTE COUNT (BEAKER) (test 0.00 K/ L 0.04-0.54 vlqt=620) BASOPHILS ABSOLUTE COUNT (BEAKER) (test 0.02 K/ L 0.01-0.08 qccg=738) IMMATURE GRANULOCYTES-RELATIVE PERCENT (BEAKER) 1 % 0-1 (test kasb=9125) [id number] 04:26:00 Test Item Value Reference Range Comments PREALBUMIN (BEAKER) (test nyqi=351) 25 mg/dL 14-45 [id number] 04:24:00 Test Item Value Reference Range Comments PHOSPHORUS (BEAKER) (test tyen=255) 3.5 mg/dL 2.3-4.7 [id number] 04:24:00 Test Item Value Reference Range Comments MAGNESIUM (BEAKER) (test jxee=864) 2.0 mg/dL 1.6-2.6 BASIC METABOLIC [id number] 04:24:00 Test Item Value Reference Range Comments SODIUM (BEAKER) (test 140 meq/L 136-145 etcu=193) POTASSIUM (BEAKER) (test 3.9 meq/L 3.5-5.1 xkgq=161) CHLORIDE (BEAKER) (test 105 meq/L 98-107 jwvt=108) CO2 (BEAKER) (test 26 meq/L 22-29 evet=316) BLOOD UREA NITROGEN 11 mg/dL 7-21 (BEAKER) (test rmms=474) CREATININE (BEAKER) (test 0.67 mg/dL 0.57-1.25 yghh=582) GLUCOSE RANDOM (BEAKER) 129 mg/dL 70-105 (test tbap=496) CALCIUM (BEAKER) (test 9.2 mg/dL 8.4-10.2 zxau=003) EGFR (BEAKER) (test 127 mL/min/1.73 sq m ESTIMATED GFR IS NOT tbpu=7357) ACCURATE CREATININE CLEARANCE IN PREDICTING GLOMERULAR FILTRATION RATE. ESTIMATED GFR IS NOT APPLICABLE FOR DIALYSIS PATIENTS. PROTHROMBIN TIME/[id number] 04:19:00 Test Item Value Reference Range Comments PROTIME (BEAKER) (test flle=169) 14.5 seconds 11.7-14.7 INR (BEAKER) (test cffc=119) 1.1 <=5.9 RECOMMENDED COUMADIN/WARFARIN INR THERAPY RANGESSTANDARD DOSE: 2.0 - 3.0 Includes: PROPHYLAXIS forvenous thrombosis, systemic embolization; TREATMENT for venous thrombosis and/or pulmonary embolus.HIGH RISK: Target INR is 2.5-3.5 for patients with mechanical heart valves.[id number] 04:19:00 Test Item Value Reference Range Comments PARTIAL THROMBOPLASTIN TIME (BEAKER) (test 29.7 seconds 22.5-36.0 lzlh=819) POCT-GLUCOSE [id number] 01:04:00 Test Item Value Reference Range Comments POC-GLUCOSE METER (BEAKER) 128 mg/dL 70-110 TESTED AT [address] (test yvtc=2476) [facility] [address] POCT-GLUCOSE [id number] 18:19:00 Test Item Value Reference Range Comments POC-GLUCOSE METER (BEAKER) 93 mg/dL 70-110 TESTED AT [address] (test heea=2423) [facility] [address] POCT-GLUCOSE [id number] 11:44:00 Test Item Value Reference Range Comments POC-GLUCOSE METER (BEAKER) 87 mg/dL 70-110 TESTED AT [address] (test gaah=9294) [facility] [address] POCT-GLUCOSE [id number] 06:13:00 Test Item Value Reference Range Comments POC-GLUCOSE METER (BEAKER) 158 mg/dL 70-110 TESTED AT [address] (test vsrd=9549) [facility] [address] BLOOD GAS, [id number] 04:53:00 Test Item Value Reference Range Comments PH VENOUS (BEAKER) (test ykqo=853) 7.48 7.32-7.42 PCO2 VENOUS (BEAKER) (test bmyn=537) 37 mmHg 41-51 PO2 VENOUS (BEAKER) (test wclt=106) 94 mmHg 25-40 O2 SATURATION VENOUS (BEAKER) (test zmrm=769) 97.7 % 40.0-70.0 HCO3 VENOUS (BEAKER) (test psiw=827) 27 mmol/L 21-29 BASE EXCESS VENOUS (BEAKER) (test inam=117) 3.7 mmol/L -2.0-3.0 PATIENT TEMPERATURE (BEAKER) (test jfzm=1151) 37.0 C RAD, CHEST, 1 VIEW, NON [id number] 04:42:00Reason for exam:->s/p tracheostomyShould this be performed [...] Carrillo Verified Date/Time: 06/10/2018 04:42:37 Reading Location: [address] Reading Room [id number] 04:29:00 Test Item Value Reference Range Comments MAGNESIUM (BEAKER) (test 2.2 mg/dL 1.6-2.6 Specimen slightly hemolyzed zztb=537) [id number] 04:29:00 Test Item Value Reference Range Comments PHOSPHORUS (BEAKER) (test 3.7 mg/dL 2.3-4.7 Specimen slightly hemolyzed fbzp=731) BASIC METABOLIC [id number] 04:29:00 Test Item Value Reference Range Comments SODIUM (BEAKER) (test 139 meq/L 136-145 jlvo=150) POTASSIUM (BEAKER) (test 4.0 meq/L 3.5-5.1 Specimen slightly yzbb=486) hemolyzed CHLORIDE (BEAKER) (test 105 meq/L 98-107 fwdr=937) CO2 (BEAKER) (test 24 meq/L 22-29 piim=572) BLOOD UREA NITROGEN 11 mg/dL 7-21 (BEAKER) (test cmov=045) CREATININE (BEAKER) (test 0.70 mg/dL 0.57-1.25 Specimen slightly tsjb=493) hemolyzed GLUCOSE RANDOM (BEAKER) 159 mg/dL 70-105 (test aseq=075) CALCIUM (BEAKER) (test 9.4 mg/dL 8.4-10.2 oius=301) EGFR (BEAKER) (test 121 mL/min/1.73 sq m ESTIMATED GFR IS NOT xles=1789) ACCURATE CREATININE CLEARANCE IN PREDICTING GLOMERULAR FILTRATION RATE. ESTIMATED GFR IS NOT APPLICABLE FOR DIALYSIS PATIENTS. [id number] 04:18:00 Test Item Value Reference Range Comments PARTIAL THROMBOPLASTIN TIME (BEAKER) (test 24.5 seconds 22.5-36.0 ugyv=027) PROTHROMBIN TIME/[id number] 04:17:00 Test Item Value Reference Range Comments PROTIME (BEAKER) (test ayfw=665) 13.7 seconds 11.7-14.7 INR (BEAKER) (test ceai=170) 1.0 <=5.9 RECOMMENDED COUMADIN/WARFARIN INR THERAPY RANGESSTANDARD DOSE: 2.0 - 3.0 Includes: PROPHYLAXIS forvenous thrombosis, systemic embolization; TREATMENT for venous thrombosis and/or pulmonary embolus.HIGH RISK: Target INR is 2.5-3.5 for patients with mechanical heart valves.CBC W/PLT COUNT & AUTO [id number] 04:06:00 Test Item Value Reference Range Comments WHITE BLOOD CELL COUNT (BEAKER) (test phds=856) 17.9 K/ L 3.5-10.5 RED BLOOD CELL COUNT (BEAKER) (test sbbt=363) 4.34 M/ L 4.63-6.08 HEMOGLOBIN (BEAKER) (test tips=134) 13.7 GM/DL 13.7-17.5 HEMATOCRIT (BEAKER) (test kpfi=829) 42.8 % 40.1-51.0 MEAN CORPUSCULAR VOLUME (BEAKER) (test qaee=935) 98.6 fL 79.0-92.2 MEAN CORPUSCULAR HEMOGLOBIN (BEAKER) (test 31.6 pg 25.7-32.2 yhrz=340) MEAN CORPUSCULAR HEMOGLOBIN CONC (BEAKER) (test 32.0 GM/DL 32.3-36.5 nnna=367) RED CELL DISTRIBUTION WIDTH (BEAKER) (test 14.4 % 11.6-14.4 xurd=367) PLATELET COUNT (BEAKER) (test quhl=702) 194 K/CU MM 150-450 MEAN PLATELET VOLUME (BEAKER) (test yayj=556) 10.5 fL 9.4-12.4 NUCLEATED RED BLOOD CELLS (BEAKER) (test 0 /100 WBC 0-0 irjk=657) NEUTROPHILS RELATIVE PERCENT (BEAKER) (test 92 % doem=652) LYMPHOCYTES RELATIVE PERCENT (BEAKER) (test 2 % myfk=408) MONOCYTES RELATIVE PERCENT (BEAKER) (test 5 % itjb=559) EOSINOPHILS RELATIVE PERCENT (BEAKER) (test 0 % nyvc=948) BASOPHILS RELATIVE PERCENT (BEAKER) (test 0 % iiid=739) NEUTROPHILS ABSOLUTE COUNT (BEAKER) (test 16.35 K/ L 1.78-5.38 oqyj=813) LYMPHOCYTES ABSOLUTE COUNT (BEAKER) (test 0.40 K/ L 1.32-3.57 ymbb=195) MONOCYTES ABSOLUTE COUNT (BEAKER) (test 0.86 K/ L 0.30-0.82 ayzp=834) EOSINOPHILS ABSOLUTE COUNT (BEAKER) (test 0.00 K/ L 0.04-0.54 kjfe=579) BASOPHILS ABSOLUTE COUNT (BEAKER) (test 0.03 K/ L 0.01-0.08 ullc=563) IMMATURE GRANULOCYTES-RELATIVE PERCENT (BEAKER) 1 % 0-1 (test wdbk=0143) POCT-GLUCOSE [id number] 01:05:00 Test Item Value Reference Range Comments POC-GLUCOSE METER (BEAKER) 161 mg/dL 70-110 TESTED AT [address] (test fyth=2064) [facility] [address] RAD, CHEST, 1 VIEW, NON [id number] 22:19:00Reason for exam:->Laryngeal massShould this be performed [...] MDReport Verified Date/Time: 06/09/2018 22:19:49 Reading Location: [address] Consult Reading Room 10: 19 PMRAD, CHEST, 1 VIEW, NON [id number] 20:37:00Reason for exam:-> Laryngeal massShould this be [...] Verified Date/Time: 01/2019 20:37:30 Reading Location: [address] Reading Room RAD, CHEST, 1 VIEW, NON [id number] 20:18:00Reason for exam:->Post-opShould this be performed at [...] MDReport Verified Date/Time: 06/09/2018 20:18:45 Reading Location: [address] Reading Room CBC W/PLT COUNT & AUTO [id number] 19:32:00 Test Item Value Reference Range Comments WHITE BLOOD CELL COUNT (BEAKER) (test gjxs=259) 22.9 K/ L 3.5-10.5 RED BLOOD CELL COUNT (BEAKER) (test sgze=582) 4.82 M/ L 4.63-6.08 HEMOGLOBIN (BEAKER) (test jhmm=569) 15.5 GM/DL 13.7-17.5 HEMATOCRIT (BEAKER) (test fjto=189) 48.5 % 40.1-51.0 MEAN CORPUSCULAR VOLUME (BEAKER) (test xria=044) 100.6 fL 79.0-92.2 MEAN CORPUSCULAR HEMOGLOBIN (BEAKER) (test 32.2 pg 25.7-32.2 mubc=541) MEAN CORPUSCULAR HEMOGLOBIN CONC (BEAKER) (test 32.0 GM/DL 32.3-36.5 cqna=315) RED CELL DISTRIBUTION WIDTH (BEAKER) (test 14.5 % 11.6-14.4 hrrd=839) PLATELET COUNT (BEAKER) (test qhsq=052) 201 K/CU MM 150-450 MEAN PLATELET VOLUME (BEAKER) (test zcxi=619) 10.1 fL 9.4-12.4 NUCLEATED RED BLOOD CELLS (BEAKER) (test 0 /100 WBC 0-0 oeik=357) (CELLAVISION MANUAL DIFF)2018-06-09 19:32:00 Test Item Value Reference Range Comments NEUTROPHILS - REL (CELLAVISION)(BEAKER) (test 94 % jsjz=8724) MONOCYTES - REL (CELLAVISION)(BEAKER) (test 4 % pypw=6211) BANDS - REL (CELLAVISION)(BEAKER) (test 1 % 0-10 ofbb=4982) NEUTROPHILS - ABS (CELLAVISION)(BEAKER) (test 21.53 K/ul 1.78-5.38 ohdf=6247) MONOCYTES - ABS (CELLAVISION)(BEAKER) (test 0.92 K/uL 0.30-0.82 dldn=6044) BANDS - ABS (CELLAVISION)(BEAKER) (test 0.23 K/uL 0.00-0.80 phcr=2629) TOTAL COUNTED (BEAKER) (test wfmg=1476) 100 RBC MORPHOLOGY (BEAKER) (test hktt=176) Normal PLT MORPHOLOGY (BEAKER) (test wzba=265) Normal HYPERSEGMENTATION (CELLAVISION)(BEAKER) (test Present coxy=6816) ARTIFACT (CELLAVISION)(BEAKER) (test rrvh=2878) Present PLATELET CONCENTRATION (CELLAVISION)(BEAKER) Adequate (test gnwj=0115) Received comment: User comments: Slide comments:[id number] 19:25:00 Test Item Value Reference Range Comments PHOSPHORUS (BEAKER) (test wybe=369) 4.7 mg/dL 2.3-4.7 [id number] 19:25:00 Test Item Value Reference Range Comments MAGNESIUM (BEAKER) (test dsoj=516) 2.2 mg/dL 1.6-2.6 BASIC METABOLIC [id number] 19:25:00 Test Item Value Reference Range Comments SODIUM (BEAKER) (test 139 meq/L 136-145 vvqp=796) POTASSIUM (BEAKER) (test 3.9 meq/L 3.5-5.1 ezhp=626) CHLORIDE (BEAKER) (test 103 meq/L 98-107 jkqd=264) CO2 (BEAKER) (test 27 meq/L 22-29 dstg=588) BLOOD UREA NITROGEN 15 mg/dL 7-21 (BEAKER) (test veqx=075) CREATININE (BEAKER) (test 0.81 mg/dL 0.57-1.25 vobs=886) GLUCOSE RANDOM (BEAKER) 139 mg/dL 70-105 (test unwn=136) CALCIUM (BEAKER) (test 9.3 mg/dL 8.4-10.2 vizp=260) EGFR (BEAKER) (test 102 mL/min/1.73 sq m ESTIMATED GFR IS NOT rhmm=3815) ACCURATE CREATININE CLEARANCE IN PREDICTING GLOMERULAR FILTRATION RATE. ESTIMATED GFR IS NOT APPLICABLE FOR DIALYSIS PATIENTS. PROTHROMBIN TIME/[id number] 19:18:00 Test Item Value Reference Range Comments PROTIME (BEAKER) (test vyvx=638) 13.0 seconds 11.7-14.7 INR (BEAKER) (test txky=073) 1.0 <=5.9 RECOMMENDED COUMADIN/WARFARIN INR THERAPY RANGESSTANDARD DOSE: 2.0 - 3.0 Includes: PROPHYLAXIS forvenous thrombosis, systemic embolization; TREATMENT for venous thrombosis and/or pulmonary embolus.HIGH RISK: Target INR is 2.5-3.5 for patients with mechanical heart valves.[id number] 19:18:00 Test Item Value Reference Range Comments PARTIAL THROMBOPLASTIN TIME (BEAKER) (test 24.0 seconds 22.5-36.0 ciuc=072) [id number] 12:47:00 Test Item Value Reference Range Comments HEMOGLOBIN (BEAKER) (test jveu=745) 15.7 GM/DL 13.7-17.5 PLATELET [id number] 12:47:00 Test Item Value Reference Range Comments PLATELET COUNT (BEAKER) (test wuaz=351) 203 K/CU MM 150-450
[2019-03-07] MEDS ORDERED: CLINDAMYCIN 900MG/D5W 900 MG/50 ML IVPB IV ONE (12:02)
[2019-03-07] MEDS ORDERED: MORPHINE 4 MG/ML SYR ONE (12:13)
[2019-03-07] MEDS ORDERED: ONDANSETRON 4 MG/2 ML VIAL ONE (12:13)
[2019-03-07] MEDS ORDERED: METOCLOPRAMIDE 10 MG/2mL INJ ONE (12:46)
[2019-03-07] MEDS ORDERED: FENTANYL CITR 100 MCG/2 ML ONE (13:49)
[2019-03-07 13:57] LABS: Absolute Lymphocytes (CBC) 0.9 K/uL (0.7-4.9); Basophils % 0.7 % (0-1.3); Lymphocytes % 8.8 % (15.3-44.8); MPV 7.9 fL (7.6-11.3); RBC Red Blood Cell Count 4.86 M/uL (4.33-5.43)
[2019-03-07] MEDS ORDERED: FAMOTIDINE 20 MG/2 ML VIAL IV ONE (14:11)
[2019-03-07] MEDS ORDERED: DIPHENHYDRAMINE 50 MG/ML VIAL ONE (14:11)
[2019-03-07] MEDS ORDERED: METHYLPREDNISOLONE 125 MG INJ ONE (14:11)
[2019-03-07 14:13] LABS: BUN Blood Urea Nitrogen 8 mg/dL (7-18); Bicarbonate 26 mmol/L (21-32); Glucose Level 129 mg/dL (74-106); Potassium 3.5 mmol/L (3.5-5.1); Sodium Level 141 mmol/L (136-145)
--- NOTE | 2019-03-07 14:57 | RAD REPORT ---
EXAM DESCRIPTION: CT - Soft Tissue Neck W/Contr - 03/07/2019 2:29 pm CLINICAL HISTORY: Neck pain with sore throat COMPARISON: January 2019 TECHNIQUE: Computed axial tomography of the neck was obtained. 50 cc Isovue 300 was administered in travenously. Coronal and sagittal reconstruction was performed. All CT scans are performed using dose optimization technique as appropriate and may include automated exposure control or mA/KV adjustment according to patient size. FINDINGS: A laryngectomy has been performed. Tracheotomy is noted. The remainder of the airway unre markable The parotid and submandibular glands unremarkable. Mild stranding is present adjacent to the right submandibular gland. A fluid-filled abscess is not se en IMPRESSION: Mild inflammatory changes surround the right submandibular gland having the appearance o f a cellulitis An abscess is not seen
--- NOTE | 2019-03-07 15:25 | ER ---
Nurse's Notes [facility] Name: Akin Pugh Age: 48 yrs Sex: Male : 1970 Arrival Date: 03/07/2019 Time: 11:15 Bed 5 Private MD: Diagnosis: Cellulitis to Right Submandibular Gland area Presentation: 03/07 11:32 Presenting complaint: Patient states: Swelling to R side of neck, pt w/ trach in place ph and hx of abscess, denies fever, N/V or pain. Transition of care: patient was not received from another setting of care. Onset of symptoms was March 07, 2019. Risk Assessment: Do you want to hurt yourself or someone else? Patient reports no desire to harm self or others. Initial Sepsis Screen: Does the patient meet any 2 criteria? No. Patient's initial sepsis screen is negative. Care prior to arrival: None. 11:32 Method Of Arrival: Ambulatory ph 11:32 Acuity: PAO 3 ph Historical: - Allergies: 11:34 Ampicillin; ph 11:34 Iodinated Contrast Media - IV Dye; ph 11:34 Iodine; ph 11:34 Levaquin; ph - Home Meds: 11:34 escitalopram oxalate Oral [Active]; Levoxyl Oral [Active]; ph - PMHx: 11:34 Asthma; COPD; THROAT CA; ph - PSHx: 11:34 leg surgery; trach; ph - Immunization history:: Adult Immunizations unknown. - Social history:: Smoking status: Patient uses tobacco products, smokes one pack cigarettes per day. - Ebola Screening: : No symptoms or risks identified at this time. Screenin:18 Abuse screen: Denies threats or abuse. Denies injuries from another. Nutritional hb screening: No deficits noted. Tuberculosis screening: No symptoms or risk factors identified. Fall Risk None identified. Assessment: 11:45 General: Appears in no apparent distress. Behavior is calm, cooperative. Pain: Pain hb currently is 6 out of 10 on a pain scale. Neuro: Level of Consciousness is awake, alert, obeys commands, Oriented to person, place, time, situation. Cardiovascular: Capillary refill < 3 seconds Patient's skin is warm and dry. Respiratory: Airway is patent Respiratory effort is even, unlabored, Respiratory pattern is regular, symmetrical, Breath sounds are clear bilaterally. GI: No signs and/or symptoms were reported involving the gastrointestinal system. : No signs and/or symptoms were reported regarding the genitourinary system. EENT: Reports anterior neck swelling. Derm: redness noted to anterior neck, tracheostomy stoma noted, open to air. Musculoskeletal: No signs and/or symptoms reported regarding the musculoskeletal system. 12:30 Reassessment: Patient appears in no apparent distress at this time. Patient and/or hb family updated on plan of care and expected duration. Pain level reassessed. Patient is alert, oriented x 3, equal unlabored respirations, skin warm/dry/pink. 13:30 Reassessment: Patient appears in no apparent distress at this time. Patient and/or hb family updated on plan of care and expected duration. Pain level reassessed. Patient is alert, oriented x 3, equal unlabored respirations, skin warm/dry/pink. 14:33 Reassessment: Patient appears in no apparent distress at this time. pt transported back sg from CT at this time. 15:30 Reassessment: Patient appears in no apparent distress at this time. Patient and/or hb family updated on plan of care and expected duration. Pain level reassessed. Patient is alert, oriented x 3, equal unlabored respirations, skin warm/dry/pink. Vital Signs: 11:33 BP 134 / 85; Pulse 93; Resp 22; Temp 97.9; Pulse Ox 97% on R/A; Weight 86.18 kg; Height ph 6 ft. 0 in. (182.88 cm); 12:30 BP 143 / 95; Pulse 95; Resp 19; Pulse Ox 96% on R/A; Pain 6/10; hb 13:45 BP 134 / 86; Pulse 71; Resp 17; Pulse Ox 96% on R/A; Pain 6/10; hb 15:00 BP 132 / 76; Pulse 70; Resp 19; Pulse Ox 97% on R/A; Pain 7/10; hb 11:33 Body Mass Index 25.77 (86.18 kg, 182.88 cm) ph ED Course: 11:15 Patient arrived in ED. mr 11:24 Eligio Gilbert MD is Attending Physician. kdr 11:33 Triage completed. ph 11:35 Arm band placed on Patient placed in an exam room. ph 12:12 Inserted saline lock: 20 gauge in right forearm, using aseptic technique. hb 12:15 Ya Acosta, RN is Primary Nurse. hb 12:18 Patient has correct armband on for positive identification. Bed in low position. Call hb light in reach. Side rails up X 1. 14:29 CT completed. Patient tolerated procedure well. Patient moved back from CT. mw3 14:30 Soft Tissue Neck W/Contr CT In Process Unspecified. EDMS 15:23 Keya Pardo MD is Referral Physician. kdr 15:30 No provider procedures requiring assistance completed. IV discontinued, intact, hb bleeding controlled, No redness/swelling at site. Pressure dressing applied. Administered Medications: 12:10 Drug: Clindamycin 900 mg Route: IVPB; Infused Over: 30 mins; Site: right forearm; iw 12:35 Follow up: Response: No adverse reaction; IV Status: Completed infusion; IV Intake: 10mlhb 12:15 Drug: morphine 4 mg Route: IVP; Site: left forearm; hb 12:40 Follow up: Response: No adverse reaction hb 12:16 Drug: Zofran 4 mg Route: IVP; Site: right forearm; hb 12:45 Follow up: Response: No adverse reaction hb 12:54 Drug: Reglan 20 mg Route: IVP; Site: right forearm; hb 13:30 Follow up: Response: No adverse reaction hb 13:53 Drug: fentaNYL (PF) 50 mcg Route: IVP; Site: right forearm; hb 14:30 Follow up: Response: No adverse reaction hb 14:19 Drug: SOLU-Medrol 125 mg Route: IVP; Site: right forearm; sg 14:44 Follow up: Response: No adverse reaction hb 14:19 Drug: Benadryl 25 mg Route: IVP; Site: right forearm; sg 14:44 Follow up: Response: No adverse reaction hb 14:19 Drug: Pepcid 20 mg Route: IVP; Site: right forearm; sg 14:44 Follow up: Response: No adverse reaction hb 15:40 Drug: fentaNYL Patch (50 mcg/hr) 1 patches Route: Transdermal; Site: anterior chest sg wall; Intake: 12:35 IV: 10ml; Total: 10ml. hb Outcome: 15:24 Discharge ordered by . kdr 15:30 Discharged to home ambulatory, with significant other. hb 15:30 Condition: stable 15:30 Discharge instructions given to patient, family, Instructed on discharge instructions, follow up and referral plans. medication usage, Demonstrated understanding of instructions, follow-up care, medications, Prescriptions given X 1. 15:40 Patient left the ED. sg Signatures: Dispatcher [employer] EDMS Quentin Luong RN RN sg Rittger, Kevin, MD MD [facility] Aury Prescott mr Flor De La O RN RN iw Hall, Patricia, RN RN ph Baxter, Heather, RN RN Brigitte Molina 3
--- NOTE | 2019-03-07 15:26 | EDPHYS ---
Physician Documentation [facility] Name: Akin Pugh Age: 48 yrs Sex: Male : 1970 Arrival Date: 03/07/2019 Time: 11:15 Bed 5 Private MD: ED Physician Eligio Gilbert HPI: 03/07 11:46 This 48 yrs old Male presents to ER via Ambulatory with complaints of Neck kdr Swelling. 11:46 This 48 yrs old Male presents to ER via Ambulatory with complaints of Neck kdr Swelling and redness. 11:46 The patient or guardian complains of pain, that is acute, tenderness, Erythema. The kdr symptoms are located on the thyroid cartilage, right aspect of thyroid, left aspect of thyroid, right sternocleidomastoid and left sternocleidomastoid. Onset: The symptoms/episode began/occurred gradually, 2 day(s) ago. Context: The problem was sustained at home, The neck injury/problem resulted from from unknown cause. Associated signs and symptoms: Pertinent positives: The patient has poor dentition which he believes may be contributing to his recurrent anterior neck infection. The pain does not radiate. Modifying factors: The symptoms are alleviated by nothing. the symptoms are aggravated by nothing. Severity of symptoms: At their worst the symptoms were mild, in the emergency department the symptoms are unchanged. The patient has experienced similar episodes in the past, multiple times. The patient has been recently seen by a physician: Spoke/texted with Dr. Pardo and he has a scheduled with a dentist for removing all of his teeth. Historical: - Allergies: 11:34 Ampicillin; ph 11:34 Iodinated Contrast Media - IV Dye; ph 11:34 Iodine; ph 11:34 Levaquin; ph - Home Meds: 11:34 escitalopram oxalate Oral [Active]; Levoxyl Oral [Active]; ph - PMHx: 11:34 Asthma; COPD; THROAT CA; ph - PSHx: 11:34 leg surgery; trach; ph - Immunization history:: Adult Immunizations unknown. - Social history:: Smoking status: Patient uses tobacco products, smokes one pack cigarettes per day. - Ebola Screening: : No symptoms or risks identified at this time. ROS: 11:46 Constitutional: Negative for fever, chills, and weight loss, Eyes: Negative for injury, kdr pain, redness, and discharge, ENT: Negative for injury, pain, and discharge, Cardiovascular: Negative for chest pain, palpitations, and edema. 11:46 Neck: Positive for swelling, tenderness, Erythema - diffusely to both sides of his neck. No apparent or eminent airway threat or compromise.. Exam: 11:46 Constitutional: This is a well developed, well nourished patient who is awake, alert, kdr and in no acute distress. Head/Face: Normocephalic, atraumatic. Eyes: Pupils equal round and reactive to light, extra-ocular motions intact. Lids and lashes normal. Conjunctiva and sclera are non-icteric and not injected. Cornea within normal limits. Periorbital areas with no swelling, redness, or edema. Chest/axilla: Normal chest wall appearance and motion. Nontender with no deformity. No lesions are appreciated. 11:46 Neck: External neck: erythema, that is mild, of the thyroid cartilage, right aspect of thyroid, left aspect of thyroid, right sternocleidomastoid and left sternocleidomastoid. Vital Signs: 11:33 BP 134 / 85; Pulse 93; Resp 22; Temp 97.9; Pulse Ox 97% on R/A; Weight 86.18 kg; Height ph 6 ft. 0 in. (182.88 cm); 12:30 BP 143 / 95; Pulse 95; Resp 19; Pulse Ox 96% on R/A; Pain 6/10; hb 13:45 BP 134 / 86; Pulse 71; Resp 17; Pulse Ox 96% on R/A; Pain 6/10; hb 15:00 BP 132 / 76; Pulse 70; Resp 19; Pulse Ox 97% on R/A; Pain 7/10; hb 11:33 Body Mass Index 25.77 (86.18 kg, 182.88 cm) ph MDM: 15:24 Patient medically screened. kdr 15:31 Data reviewed: vital signs, nurses notes, lab test result(s), radiologic studies. kdr Counseling: I had a detailed discussion with the patient and/or guardian regarding: the historical points, exam findings, and any diagnostic results supporting the discharge/admit diagnosis, lab results, radiology results, the need for outpatient follow up. 03/07 13:33 Order name: CBC with Diff; Complete Time: 14:54 kdr 03/07 13:33 Order name: Chem 7; Complete Time: 14:54 kdr 03/07 13:46 Order name: Soft Tissue Neck W/Contr CT; Complete Time: 15:21 kdr 03/07 11:48 Order name: IV Saline Lock; Complete Time: 12:10 sg Administered Medications: 12:10 Drug: Clindamycin 900 mg Route: IVPB; Infused Over: 30 mins; Site: right forearm; iw 12:35 Follow up: Response: No adverse reaction; IV Status: Completed infusion; IV Intake: 10mlhb 12:15 Drug: morphine 4 mg Route: IVP; Site: left forearm; hb 12:40 Follow up: Response: No adverse reaction hb 12:16 Drug: Zofran 4 mg Route: IVP; Site: right forearm; hb 12:45 Follow up: Response: No adverse reaction hb 12:54 Drug: Reglan 20 mg Route: IVP; Site: right forearm; hb 13:30 Follow up: Response: No adverse reaction hb 13:53 Drug: fentaNYL (PF) 50 mcg Route: IVP; Site: right forearm; hb 14:30 Follow up: Response: No adverse reaction hb 14:19 Drug: SOLU-Medrol 125 mg Route: IVP; Site: right forearm; sg 14:44 Follow up: Response: No adverse reaction hb 14:19 Drug: Benadryl 25 mg Route: IVP; Site: right forearm; sg 14:44 Follow up: Response: No adverse reaction hb 14:19 Drug: Pepcid 20 mg Route: IVP; Site: right forearm; sg 14:44 Follow up: Response: No adverse reaction hb 15:40 Drug: fentaNYL Patch (50 mcg/hr) 1 patches Route: Transdermal; Site: anterior chest sg wall; Disposition: 03/07/19 15:24 Discharged to Home. Impression: Cellulitis to Right Submandibular Gland area. - Condition is Stable. - Prescriptions for Clindamycin HCl 300 mg Oral Capsule - take 1 capsule by ORAL route every 6 hours for 10 days; 40 capsule. - Medication Reconciliation Form, Thank You Letter, Antibiotic Education form. - Follow up: Keya Pardo MD; When: 2 - 3 days; Reason: If symptoms return, Further diagnostic work-up, Recheck today's complaints, Continuance of care, Re-evaluation by your physician. - Problem is an acute exacerbation. - Symptoms have improved. Signatures: Dispatcher [employer] EDMS Quentin Luong RN RN sg Eligio Gilbert MD MD [facility] Flor De La O RN RN iTny Varela RN RN Ya Acosta RN RN Corrections: (The following items were deleted from the chart) 15:40 15:24 03/07/2019 15:24 Discharged to Home. Impression: Cellulitis to Right sg Submandibular Gland area. Condition is Stable. Forms are Medication Reconciliation Form, Thank You Letter, Antibiotic Education, Prescription Opioid Use. Follow up: Keya Pardo; When: 2 - 3 days; Reason: If symptoms return, Further diagnostic work-up, Recheck today's complaints, Continuance of care, Re-evaluation by your physician. Problem is an acute exacerbation. Symptoms have improved. kdr
[2019-03-07] MEDS ORDERED: FENTANYL 50 MCG/PATCH TD ONE (15:32)
[2019-03-07 17:09] VITALS: TEMP 97.9
[2019-03-07 17:11] VITALS: O2SAT 96
[2019-03-07 17:12] VITALS: BP 134/86
== END 2019-03-07 15:40 | disposition home or self-care (01) ==
LOC: ER 11:13
DX: K11.3 Abscess of salivary gland (principal); Z91.09 Other allergy status, other than to drugs and biological substances; Z88.1 Allergy status to other antibiotic agents; F17.210 Nicotine dependence, cigarettes, uncomplicated
CPT/HCPCS: 96365; 85025; 80048; 36415; 70491; 96375; 99284; Q9967; J2765; J1200; J3010; J2930; J2405

== ENCOUNTER 2019-03-09 11:03 | Emergency (ER) | payer MEDICAID ==
--- OUTSIDE RECORDS SUMMARY | 2019-03-09 11:05 | XMS REPORT ---
[...] End Status Dosage System Date Date Hydrocodone-Acet [facility] 27396765707 10-325 MG Active 1 tablet aminophen Orally every 6 as needed hrs Citalopram [facility] 43600190244 20 MG Orally Active 1 tablet Hydrobromide Once a day Xanax [facility] [address]-56 1 MG Orally Active 1 tablet Once a day Zofran [facility] [address]-54 8 MG Orally Active 1 tablet Twice a day PRN Results No Known Results Summary Purpose eClinicalWorks Submission
--- OUTSIDE RECORDS SUMMARY | 2019-03-09 11:06 | XMS REPORT ---
[...] Date Date BuPROPion HCl [facility] 04969460932 150 MG Orally Dec 16, Active 1 tablet ER (Smoking Once a day 2018 in the Det) morning Xanax [facility] 26863692385 1 MG Orally Once Active 1 tablet a day Zofran ND 85135877689 8 MG Orally Active 1 tablet Twice a day PRN Hydrocodone-Ac ND 03045012653 10-325 MG Orally Active 1 tablet etaminophen every 6 hrs as needed Results No Known Results Summary Purpose eClinicalWorks Submission
--- OUTSIDE RECORDS SUMMARY | 2019-03-09 11:06 | XMS REPORT ---
[...] Status Dosage System Date Date BuPROPion HCl [facility] 21483322863 150 MG Orally Dec 16, Active 1 tablet ER (Smoking Once a day 2018 in the Det) morning Xanax [facility] 71673995483 1 MG Orally Active 1 tablet Once a day Zofran ND 89848698759 8 MG Orally Active 1 tablet Twice a day PRN Hydrocodone-Ari ND 03001108222 10-325 MG Active 1 tablet taminophen Orally every 6 as needed hrs Citalopram ND 46947838864 20 MG Orally Inactive 1 tablet Hydrobromide Once a day Results No Known Results Summary Purpose eClinicalWorks Submission
--- OUTSIDE RECORDS SUMMARY | 2019-03-09 11:14 | XMS REPORT ---
:1970 [facility] Address [facility] [place] [address] [place] [id number] Care Team Providers Name Role Phone JENNIFER [...] Comments CREATININE (BEAKER) (test 0.63 mg/dL 0.57-1.25 qfvi=230) EGFR (BEAKER) (test 136 mL/min/1.73 sq m ESTIMATED GFR IS NOT tosa=2894) ACCURATE CREATININE CLEARANCE IN PREDICTING GLOMERULAR FILTRATION RATE. ESTIMATED GFR IS NOT APPLICABLE FOR DIALYSIS PATIENTS. WOUND CULTURE + GRAM [id number] 16:32:00 Test Item Value Reference Range Comments CULTURE (BEAKER) (test No growth pybp=1133) GRAM STAIN RESULT (BEAKER) 2+ WBCs (test wkns=3725) GRAM STAIN RESULT (BEAKER) 1+ gram positive cocci in (test ibee=31367) pairs GRAM STAIN RESULT (BEAKER) <1+ gram variable rods (test bnek=30279) VANCOMYCIN LEVEL, [id number] 23:37:00 Test Item Value Reference Range Comments VANCOMYCIN TROUGH (BEAKER) (test phil=489) 7.5 ug/mL 10.0-20.0 FL, ESOPH, SWALLOW FUNCTION, WITH CINE OR [id number] 18:19:00Cervical esophagram with GASTROGAFFINReason for exam:->status post [...] MDReport Verified Date/Time: 08/12/2018 18:19:29 Reading Location: [place] [id number] Ortho Consult Reading Room CBC W/PLT COUNT & AUTO [id number] 04: 39:00 Test Item Value Reference Range Comments WHITE BLOOD CELL COUNT (BEAKER) (test tfea=008) 7.1 K/ L 3.5-10.5 RED BLOOD CELL COUNT (BEAKER) (test vvlf=262) 3.77 M/ L 4.63-6.08 HEMOGLOBIN (BEAKER) (test aufb=524) 10.9 GM/DL 13.7-17.5 HEMATOCRIT (BEAKER) (test qzjh=334) 35.7 % 40.1-51.0 MEAN CORPUSCULAR VOLUME (BEAKER) (test wzve=731) 94.7 fL 79.0-92.2 MEAN CORPUSCULAR HEMOGLOBIN (BEAKER) (test 28.9 pg 25.7-32.2 ebld=200) MEAN CORPUSCULAR HEMOGLOBIN CONC (BEAKER) (test 30.5 GM/DL 32.3-36.5 riow=331) RED CELL DISTRIBUTION WIDTH (BEAKER) (test 14.6 % 11.6-14.4 dgjj=646) PLATELET COUNT (BEAKER) (test btco=455) 318 K/CU MM 150-450 MEAN PLATELET VOLUME (BEAKER) (test lllu=961) 9.8 fL 9.4-12.4 NUCLEATED RED BLOOD CELLS (BEAKER) (test 0 /100 WBC 0-0 wvei=232) NEUTROPHILS RELATIVE PERCENT (BEAKER) (test 72 % ixny=953) LYMPHOCYTES RELATIVE PERCENT (BEAKER) (test 10 % rkkp=093) MONOCYTES RELATIVE PERCENT (BEAKER) (test 12 % fedm=642) EOSINOPHILS RELATIVE PERCENT (BEAKER) (test 4 % qxvs=990) BASOPHILS RELATIVE PERCENT (BEAKER) (test 1 % kife=919) NEUTROPHILS ABSOLUTE COUNT (BEAKER) (test 5.08 K/ L 1.78-5.38 mtpd=067) LYMPHOCYTES ABSOLUTE COUNT (BEAKER) (test 0.68 K/ L 1.32-3.57 kqky=399) MONOCYTES ABSOLUTE COUNT (BEAKER) (test 0.86 K/ L 0.30-0.82 vqiy=869) EOSINOPHILS ABSOLUTE COUNT (BEAKER) (test 0.29 K/ L 0.04-0.54 xzmx=426) BASOPHILS ABSOLUTE COUNT (BEAKER) (test 0.04 K/ L 0.01-0.08 prqe=122) IMMATURE GRANULOCYTES-RELATIVE PERCENT (BEAKER) 1 % 0-1 (test clkz=2310) TSH/FREE T4 IF [id number] 18:11:00 Test Item Value Reference Range Comments THYROID STIMULATING HORMONE (BEAKER) (test 0.75 uIU/mL 0.35-4.94 trhc=990) CBC W/PLT COUNT & AUTO [id number] 17:31:00 Test Item Value Reference Range Comments WHITE BLOOD CELL COUNT (BEAKER) (test raak=365) 9.2 K/ L 3.5-10.5 RED BLOOD CELL COUNT (BEAKER) (test bpfj=008) 3.78 M/ L 4.63-6.08 HEMOGLOBIN (BEAKER) (test tdem=705) 11.0 GM/DL 13.7-17.5 HEMATOCRIT (BEAKER) (test pefz=176) 35.4 % 40.1-51.0 MEAN CORPUSCULAR VOLUME (BEAKER) (test tnku=451) 93.7 fL 79.0-92.2 MEAN CORPUSCULAR HEMOGLOBIN (BEAKER) (test 29.1 pg 25.7-32.2 jzql=706) MEAN CORPUSCULAR HEMOGLOBIN CONC (BEAKER) (test 31.1 GM/DL 32.3-36.5 zkvx=556) RED CELL DISTRIBUTION WIDTH (BEAKER) (test 14.7 % 11.6-14.4 qgmd=609) PLATELET COUNT (BEAKER) (test octy=340) 323 K/CU MM 150-450 MEAN PLATELET VOLUME (BEAKER) (test wbfj=169) 9.6 fL 9.4-12.4 NUCLEATED RED BLOOD CELLS (BEAKER) (test 0 /100 WBC 0-0 mguq=526) NEUTROPHILS RELATIVE PERCENT (BEAKER) (test 75 % dxke=656) LYMPHOCYTES RELATIVE PERCENT (BEAKER) (test 9 % yfil=534) MONOCYTES RELATIVE PERCENT (BEAKER) (test 12 % jrvm=798) EOSINOPHILS RELATIVE PERCENT (BEAKER) (test 3 % xrpy=626) BASOPHILS RELATIVE PERCENT (BEAKER) (test 0 % yofb=871) NEUTROPHILS ABSOLUTE COUNT (BEAKER) (test 6.86 K/ L 1.78-5.38 dzzf=904) LYMPHOCYTES ABSOLUTE COUNT (BEAKER) (test 0.81 K/ L 1.32-3.57 rugf=493) MONOCYTES ABSOLUTE COUNT (BEAKER) (test 1.13 K/ L 0.30-0.82 vhbl=007) EOSINOPHILS ABSOLUTE COUNT (BEAKER) (test 0.24 K/ L 0.04-0.54 gpom=597) BASOPHILS ABSOLUTE COUNT (BEAKER) (test 0.04 K/ L 0.01-0.08 chdt=054) IMMATURE GRANULOCYTES-RELATIVE PERCENT (BEAKER) 1 % 0-1 (test fdac=4760) TISSUE [id number] 10:26:00Surgical Pathology Report Case: [id number] Authorizing Provider: Jennifer Fraire MD Collected: 07/14/2018 1023 Ordering Location: [facility] Received: 07/14/2018 1029 SERVICES [...] cannot be determined from the submitted specimen(s) 58603 X3 , 16239, 16273, 67919 X2, 98139 X 4, 48172 x1, 82651 [id number] 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 City Secretary sections are submitted as follows: C6 - [...] shows ulcer and granulation tissue. On C19, [place]-8 positivity confirms portion of thyroidtissue present. On [...] stains. Immunohistochemistry technical testing was performed at [facility], Pathology Laboratory where it was developed [...] clinical laboratory testing.CBC W/PLT COUNT & AUTO [id number] 09:34:00 Test Item Value Reference Range Comments WHITE BLOOD CELL COUNT (BEAKER) (test nela=357) 10.8 K/ L 3.5-10.5 RED BLOOD CELL COUNT (BEAKER) (test uxsy=999) 3.45 M/ L 4.63-6.08 HEMOGLOBIN (BEAKER) (test pnyp=037) 10.2 GM/DL 13.7-17.5 HEMATOCRIT (BEAKER) (test incw=962) 34.1 % 40.1-51.0 MEAN CORPUSCULAR VOLUME (BEAKER) (test indr=865) 98.8 fL 79.0-92.2 MEAN CORPUSCULAR HEMOGLOBIN (BEAKER) (test 29.6 pg 25.7-32.2 fzjr=868) MEAN CORPUSCULAR HEMOGLOBIN CONC (BEAKER) (test 29.9 GM/DL 32.3-36.5 agnl=838) RED CELL DISTRIBUTION WIDTH (BEAKER) (test 15.7 % 11.6-14.4 zfxw=075) PLATELET COUNT (BEAKER) (test uifz=891) 522 K/CU MM 150-450 MEAN PLATELET VOLUME (BEAKER) (test piqa=222) 10.2 fL 9.4-12.4 NUCLEATED RED BLOOD CELLS (BEAKER) (test 0 /100 WBC 0-0 dwej=041) (CELLAVISION MANUAL DIFF)2018-07-24 09:34:00 Test Item Value Reference Range Comments NEUTROPHILS - REL (CELLAVISION)(BEAKER) (test 80 % miht=8600) LYMPHOCYTES - REL (CELLAVISION)(BEAKER) (test 2 % doss=2756) MONOCYTES - REL (CELLAVISION)(BEAKER) (test 15 % klhk=6433) EOSINOPHILS - REL (CELLAVISION)(BEAKER) (test 3 % bdni=8160) NEUTROPHILS - ABS (CELLAVISION)(BEAKER) (test 8.64 K/ul 1.78-5.38 zszp=5340) LYMPHOCYTES - ABS (CELLAVISION)(BEAKER) (test 0.22 K/ul 1.32-3.57 lptq=0955) MONOCYTES - ABS (CELLAVISION)(BEAKER) (test 1.62 K/uL 0.30-0.82 brkw=7678) EOSINOPHILS - ABS (CELLAVISION)(BEAKER) (test 0.32 K/uL 0.04-0.54 lhum=6100) TOTAL COUNTED (BEAKER) (test smwa=8987) 100 WBC MORPHOLOGY (BEAKER) (test gaxa=998) Normal LARGE PLT(BEAKER) (test qudh=1428) Present POLYCHROMATOPHILLIC RBCS(BEAKER) (test dixv=961) 1+ few ARTIFACT (CELLAVISION)(BEAKER) (test gufy=3324) Present PLATELET CONCENTRATION (CELLAVISION)(BEAKER) (test Increased itfa=1083) Received comment: User comments: Slide comments:[id number] 05:40:00 Test Item Value Reference Range Comments PHOSPHORUS (BEAKER) (test okup=016) 4.8 mg/dL 2.3-4.7 [id number] 05:40:00 Test Item Value Reference Range Comments MAGNESIUM (BEAKER) (test yfxl=581) 2.1 mg/dL 1.6-2.6 BASIC METABOLIC [id number] 05:40:00 Test Item Value Reference Range Comments SODIUM (BEAKER) (test 140 meq/L 136-145 vbcd=050) POTASSIUM (BEAKER) (test 4.0 meq/L 3.5-5.1 jckn=276) CHLORIDE (BEAKER) (test 99 meq/L 98-107 ibmd=358) CO2 (BEAKER) (test 30 meq/L 22-29 euen=098) BLOOD UREA NITROGEN 8 mg/dL 7-21 (BEAKER) (test lasb=405) CREATININE (BEAKER) (test 0.71 mg/dL 0.57-1.25 ydpp=064) GLUCOSE RANDOM (BEAKER) 90 mg/dL 70-105 (test yqiw=276) CALCIUM (BEAKER) (test 8.8 mg/dL 8.4-10.2 emtq=167) EGFR (BEAKER) (test 118 mL/min/1.73 sq m ESTIMATED GFR IS NOT ngvi=4723) ACCURATE CREATININE CLEARANCE IN PREDICTING GLOMERULAR FILTRATION RATE. ESTIMATED GFR IS NOT APPLICABLE FOR DIALYSIS PATIENTS. CBC W/PLT COUNT & AUTO [id number] 11:50:00 Test Item Value Reference Range Comments WHITE BLOOD CELL COUNT (BEAKER) (test kgmi=307) 13.2 K/ L 3.5-10.5 RED BLOOD CELL COUNT (BEAKER) (test kqij=738) 3.41 M/ L 4.63-6.08 HEMOGLOBIN (BEAKER) (test rktx=989) 10.2 GM/DL 13.7-17.5 HEMATOCRIT (BEAKER) (test vfas=033) 33.2 % 40.1-51.0 MEAN CORPUSCULAR VOLUME (BEAKER) (test xaiw=117) 97.4 fL 79.0-92.2 MEAN CORPUSCULAR HEMOGLOBIN (BEAKER) (test 29.9 pg 25.7-32.2 unnr=163) MEAN CORPUSCULAR HEMOGLOBIN CONC (BEAKER) (test 30.7 GM/DL 32.3-36.5 nyqq=167) RED CELL DISTRIBUTION WIDTH (BEAKER) (test 15.5 % 11.6-14.4 bmml=361) PLATELET COUNT (BEAKER) (test lhbr=484) 473 K/CU MM 150-450 MEAN PLATELET VOLUME (BEAKER) (test oaiu=351) 10.0 fL 9.4-12.4 NUCLEATED RED BLOOD CELLS (BEAKER) (test 0 /100 WBC 0-0 vjzy=244) (CELLAVISION MANUAL DIFF)2018-07-23 11:50:00 Test Item Value Reference Range Comments NEUTROPHILS - REL (CELLAVISION)(BEAKER) (test 80 % uewa=7732) LYMPHOCYTES - REL (CELLAVISION)(BEAKER) (test 8 % bzrw=9861) MONOCYTES - REL (CELLAVISION)(BEAKER) (test 4 % mlpg=5607) EOSINOPHILS - REL (CELLAVISION)(BEAKER) (test 1 % jzup=0891) MYELOCYTES - REL (CELLAVISION)(BEAKER) (test 2 % 0-0 xyag=5579) BANDS - REL (CELLAVISION)(BEAKER) (test 4 % 0-10 cqmv=1674) NEUTROPHILS - ABS (CELLAVISION)(BEAKER) (test 10.56 K/ul 1.78-5.38 fcnj=7691) LYMPHOCYTES - ABS (CELLAVISION)(BEAKER) (test 1.06 K/ul 1.32-3.57 zsai=3610) MONOCYTES - ABS (CELLAVISION)(BEAKER) (test 0.53 K/uL 0.30-0.82 rvhx=5311) EOSINOPHILS - ABS (CELLAVISION)(BEAKER) (test 0.13 K/uL 0.04-0.54 zeoc=0778) MYELOCYTES-ABS (CELLAVISION)(BEAKER) (test 0.26 K/uL 0.00-0.00 tevy=6184) BANDS - ABS (CELLAVISION)(BEAKER) (test 0.53 K/uL 0.00-0.80 rkps=7031) TOTAL COUNTED (BEAKER) (test lpyg=9009) 100 WBC MORPHOLOGY (BEAKER) (test fhby=917) Normal PLT MORPHOLOGY (BEAKER) (test mawu=803) Normal ANISOCYTOSIS (BEAKER) (test hagh=356) 2+ moderate MICROCYTES (BEAKER) (test atvs=448) 1+ few ARTIFACT (CELLAVISION)(BEAKER) (test vltb=8006) Present PLATELET CONCENTRATION (CELLAVISION)(BEAKER) Increased (test gvgm=6236) Received comment: User comments: Slide comments:SPUTUM CULTURE + GRAM [id number] 10:46:00 Test Item Value Reference Range Comments CULTURE (BEAKER) (test <1+ Normal respiratory maximo seki=2172) present GRAM STAIN RESULT (BEAKER) <1+ White blood cells seen (test nryc=6576) GRAM STAIN RESULT (BEAKER) 0-5 epithelial cells (test etxq=99003) GRAM STAIN RESULT (BEAKER) No organisms seen (test gwzi=06451) [id number] 06:07:00 Test Item Value Reference Range Comments PHOSPHORUS (BEAKER) (test fnzm=643) 4.6 mg/dL 2.3-4.7 [id number] 06:07:00 Test Item Value Reference Range Comments MAGNESIUM (BEAKER) (test yjqo=552) 2.0 mg/dL 1.6-2.6 BASIC METABOLIC [id number] 06:07:00 Test Item Value Reference Range Comments SODIUM (BEAKER) (test 140 meq/L 136-145 rofq=387) POTASSIUM (BEAKER) (test 4.3 meq/L 3.5-5.1 ftbw=013) CHLORIDE (BEAKER) (test 101 meq/L 98-107 vzac=274) CO2 (BEAKER) (test 31 meq/L 22-29 mvxo=905) BLOOD UREA NITROGEN 10 mg/dL 7-21 (BEAKER) (test ixds=624) CREATININE (BEAKER) (test 0.67 mg/dL 0.57-1.25 leej=666) GLUCOSE RANDOM (BEAKER) 111 mg/dL 70-105 (test hlcg=016) CALCIUM (BEAKER) (test 8.7 mg/dL 8.4-10.2 yskv=610) EGFR (BEAKER) (test 127 mL/min/1.73 sq m ESTIMATED GFR IS NOT ulnc=2780) ACCURATE CREATININE CLEARANCE IN PREDICTING GLOMERULAR FILTRATION RATE. ESTIMATED GFR IS NOT APPLICABLE FOR DIALYSIS PATIENTS. VANCOMYCIN LEVEL, [id number] 23:12:00 Test Item Value Reference Range Comments VANCOMYCIN TROUGH (BEAKER) (test ypxn=532) 3.2 ug/mL 10.0-20.0 POCT-GLUCOSE [id number] 17:57:00 Test Item Value Reference Range Comments POC-GLUCOSE METER (BEAKER) 105 mg/dL 70-110 TESTED AT [address] (test irya=4539) [facility] [address] CBC W/PLT COUNT & AUTO [id number] 13:00:00 Test Item Value Reference Range Comments WHITE BLOOD CELL COUNT (BEAKER) (test jaga=765) 12.5 K/ L 3.5-10.5 RED BLOOD CELL COUNT (BEAKER) (test rcvx=392) 3.46 M/ L 4.63-6.08 HEMOGLOBIN (BEAKER) (test tfwu=550) 10.4 GM/DL 13.7-17.5 HEMATOCRIT (BEAKER) (test igbb=233) 33.5 % 40.1-51.0 MEAN CORPUSCULAR VOLUME (BEAKER) (test wbzb=277) 96.8 fL 79.0-92.2 MEAN CORPUSCULAR HEMOGLOBIN (BEAKER) (test 30.1 pg 25.7-32.2 jjot=190) MEAN CORPUSCULAR HEMOGLOBIN CONC (BEAKER) (test 31.0 GM/DL 32.3-36.5 vbkl=319) RED CELL DISTRIBUTION WIDTH (BEAKER) (test 15.4 % 11.6-14.4 yary=796) PLATELET COUNT (BEAKER) (test gwjk=562) 425 K/CU MM 150-450 MEAN PLATELET VOLUME (BEAKER) (test darm=981) 10.1 fL 9.4-12.4 NUCLEATED RED BLOOD CELLS (BEAKER) (test 0 /100 WBC 0-0 besi=433) (CELLAVISION MANUAL DIFF)2018-07-22 13:00:00 Test Item Value Reference Range Comments NEUTROPHILS - REL (CELLAVISION)(BEAKER) (test 80 % wjxb=9155) LYMPHOCYTES - REL (CELLAVISION)(BEAKER) (test 4 % sfea=6286) MONOCYTES - REL (CELLAVISION)(BEAKER) (test 6 % bejz=3968) EOSINOPHILS - REL (CELLAVISION)(BEAKER) (test 6 % fuxd=0366) BASOPHILS - REL (CELLAVISION)(BEAKER) (test 1 % fwim=3338) MYELOCYTES - REL (CELLAVISION)(BEAKER) (test 3 % 0-0 mcvf=3279) NEUTROPHILS - ABS (CELLAVISION)(BEAKER) (test 10.00 K/ul 1.78-5.38 ymhy=3247) LYMPHOCYTES - ABS (CELLAVISION)(BEAKER) (test 0.50 K/ul 1.32-3.57 dmef=9896) MONOCYTES - ABS (CELLAVISION)(BEAKER) (test 0.75 K/uL 0.30-0.82 fudv=9915) EOSINOPHILS - ABS (CELLAVISION)(BEAKER) (test 0.75 K/uL 0.04-0.54 nqnt=4968) BASOPHILS - ABS (CELLAVISION)(BEAKER) (test 0.13 K/uL 0.01-0.08 zjxe=0347) MYELOCYTES-ABS (CELLAVISION)(BEAKER) (test 0.38 K/uL 0.00-0.00 jeyq=2965) TOTAL COUNTED (BEAKER) (test dpgw=1557) 100 WBC MORPHOLOGY (BEAKER) (test vjou=094) Normal PLT MORPHOLOGY (BEAKER) (test bcdj=957) Normal POLYCHROMATOPHILLIC RBCS(BEAKER) (test epjt=829) 1+ few ANISOCYTOSIS (BEAKER) (test mgoa=096) 1+ few MACROCYTES (BEAKER) (test syci=019) 1+ few POIKILOCYTES (BEAKER) (test ijwu=261) 2+ moderate ARTIFACT (CELLAVISION)(BEAKER) (test migl=4756) Present PLATELET CONCENTRATION (CELLAVISION)(BEAKER) Adequate (test smso=6159) Received comment: User comments: Slide comments:POCT-GLUCOSE [id number] 12: 50:00 Test Item Value Reference Range Comments POC-GLUCOSE METER (BEAKER) 117 mg/dL 70-110 TESTED AT [facility] [address] [facility] (test olgg=5927) [facility] [address] [id number] 07:00:00 Test Item Value Reference Range Comments PHOSPHORUS (BEAKER) (test aphy=563) 4.2 mg/dL 2.3-4.7 [id number] 07:00:00 Test Item Value Reference Range Comments MAGNESIUM (BEAKER) (test oqyb=072) 1.9 mg/dL 1.6-2.6 BASIC METABOLIC [id number] 07:00:00 Test Item Value Reference Range Comments SODIUM (BEAKER) (test 140 meq/L 136-145 stnn=677) POTASSIUM (BEAKER) (test 4.0 meq/L 3.5-5.1 alcd=969) CHLORIDE (BEAKER) (test 101 meq/L 98-107 ykwm=323) CO2 (BEAKER) (test 32 meq/L 22-29 axmq=095) BLOOD UREA NITROGEN 9 mg/dL 7-21 (BEAKER) (test bust=482) CREATININE (BEAKER) (test 0.62 mg/dL 0.57-1.25 icaz=624) GLUCOSE RANDOM (BEAKER) 104 mg/dL 70-105 (test ckbv=203) CALCIUM (BEAKER) (test 8.4 mg/dL 8.4-10.2 kzlz=251) EGFR (BEAKER) (test 138 mL/min/1.73 sq m ESTIMATED GFR IS NOT irnf=3346) ACCURATE CREATININE CLEARANCE IN PREDICTING GLOMERULAR FILTRATION RATE. ESTIMATED GFR IS NOT APPLICABLE FOR DIALYSIS PATIENTS. CBC W/PLT COUNT & AUTO [id number] 10:11:00 Test Item Value Reference Range Comments WHITE BLOOD CELL COUNT (BEAKER) (test mkgo=305) 10.8 K/ L 3.5-10.5 RED BLOOD CELL COUNT (BEAKER) (test xaid=688) 3.48 M/ L 4.63-6.08 HEMOGLOBIN (BEAKER) (test kkyy=001) 10.6 GM/DL 13.7-17.5 HEMATOCRIT (BEAKER) (test tcmy=008) 33.9 % 40.1-51.0 MEAN CORPUSCULAR VOLUME (BEAKER) (test zjvi=344) 97.4 fL 79.0-92.2 MEAN CORPUSCULAR HEMOGLOBIN (BEAKER) (test 30.5 pg 25.7-32.2 bsqd=187) MEAN CORPUSCULAR HEMOGLOBIN CONC (BEAKER) (test 31.3 GM/DL 32.3-36.5 ugko=252) RED CELL DISTRIBUTION WIDTH (BEAKER) (test 15.4 % 11.6-14.4 ncem=131) PLATELET COUNT (BEAKER) (test rkxx=106) 431 K/CU MM 150-450 MEAN PLATELET VOLUME (BEAKER) (test woxc=218) 10.0 fL 9.4-12.4 NUCLEATED RED BLOOD CELLS (BEAKER) (test 0 /100 WBC 0-0 lwta=007) (CELLAVISION MANUAL DIFF)2018-07-21 10:11:00 Test Item Value Reference Range Comments NEUTROPHILS - REL (CELLAVISION)(BEAKER) (test 77 % lzii=9386) LYMPHOCYTES - REL (CELLAVISION)(BEAKER) (test 3 % uvpc=4449) MONOCYTES - REL (CELLAVISION)(BEAKER) (test 7 % zdrk=3604) EOSINOPHILS - REL (CELLAVISION)(BEAKER) (test 3 % yoyb=7270) MYELOCYTES - REL (CELLAVISION)(BEAKER) (test 4 % 0-0 bshq=7082) PROMYELOCYTES - REL (CELLAVSION)(BEAKER) (test 1 % 0-0 cnlt=5892) BANDS - REL (CELLAVISION)(BEAKER) (test 5 % 0-10 rijc=3566) NEUTROPHILS - ABS (CELLAVISION)(BEAKER) (test 8.32 K/ul 1.78-5.38 wsan=0593) LYMPHOCYTES - ABS (CELLAVISION)(BEAKER) (test 0.32 K/ul 1.32-3.57 lmtm=5006) MONOCYTES - ABS (CELLAVISION)(BEAKER) (test 0.76 K/uL 0.30-0.82 mlaa=4190) EOSINOPHILS - ABS (CELLAVISION)(BEAKER) (test 0.32 K/uL 0.04-0.54 ovwz=3616) MYELOCYTES-ABS (CELLAVISION)(BEAKER) (test 0.43 K/uL 0.00-0.00 icmz=2217) PROMYELOCYTES - ABS (CELLAVISION)(BEAKER) (test 0.11 K/uL 0.00-0.00 clud=9152) BANDS - ABS (CELLAVISION)(BEAKER) (test 0.54 K/uL 0.00-0.80 lxmm=8686) TOTAL COUNTED (BEAKER) (test byxb=2478) 100 WBC MORPHOLOGY (BEAKER) (test svmg=218) Normal PLT MORPHOLOGY (BEAKER) (test mkak=828) Normal ANISOCYTOSIS (BEAKER) (test cnfo=409) 2+ moderate MICROCYTES (BEAKER) (test bfjx=043) 2+ moderate ARTIFACT (CELLAVISION)(BEAKER) (test cwle=4502) Present PLATELET CONCENTRATION (CELLAVISION)(BEAKER) Adequate (test ydhw=8452) Received comment: User comments: Slide comments:[id number] 05:39:00 Test Item Value Reference Range Comments PHOSPHORUS (BEAKER) (test glsw=678) 5.1 mg/dL 2.3-4.7 [id number] 05:39:00 Test Item Value Reference Range Comments MAGNESIUM (BEAKER) (test eewz=294) 2.0 mg/dL 1.6-2.6 BASIC METABOLIC [id number] 05:39:00 Test Item Value Reference Range Comments SODIUM (BEAKER) (test 139 meq/L 136-145 nsnh=415) POTASSIUM (BEAKER) (test 4.3 meq/L 3.5-5.1 mdjd=660) CHLORIDE (BEAKER) (test 100 meq/L 98-107 ugwc=263) CO2 (BEAKER) (test 29 meq/L 22-29 zkbm=999) BLOOD UREA NITROGEN 10 mg/dL 7-21 (BEAKER) (test dbox=632) CREATININE (BEAKER) (test 0.64 mg/dL 0.57-1.25 oxau=899) GLUCOSE RANDOM (BEAKER) 97 mg/dL 70-105 (test zuqz=561) CALCIUM (BEAKER) (test 8.6 mg/dL 8.4-10.2 rplo=397) EGFR (BEAKER) (test 133 mL/min/1.73 sq m ESTIMATED GFR IS NOT ejcb=0729) ACCURATE CREATININE CLEARANCE IN PREDICTING GLOMERULAR FILTRATION RATE. ESTIMATED GFR IS NOT APPLICABLE FOR DIALYSIS PATIENTS. VANCOMYCIN LEVEL, [id number] 23:38:00 Test Item Value Reference Range Comments VANCOMYCIN TROUGH (BEAKER) (test judx=958) 5.5 ug/mL 10.0-20.0 CBC W/PLT COUNT & AUTO [id number] 10:44:00 Test Item Value Reference Range Comments WHITE BLOOD CELL COUNT (BEAKER) (test ywth=931) 14.3 K/ L 3.5-10.5 RED BLOOD CELL COUNT (BEAKER) (test owkq=750) 3.43 M/ L 4.63-6.08 HEMOGLOBIN (BEAKER) (test tbah=628) 10.4 GM/DL 13.7-17.5 HEMATOCRIT (BEAKER) (test hgzd=069) 33.5 % 40.1-51.0 MEAN CORPUSCULAR VOLUME (BEAKER) (test ieyk=707) 97.7 fL 79.0-92.2 MEAN CORPUSCULAR HEMOGLOBIN (BEAKER) (test 30.3 pg 25.7-32.2 yszg=220) MEAN CORPUSCULAR HEMOGLOBIN CONC (BEAKER) (test 31.0 GM/DL 32.3-36.5 mkwl=877) RED CELL DISTRIBUTION WIDTH (BEAKER) (test 15.7 % 11.6-14.4 abrh=918) PLATELET COUNT (BEAKER) (test doyd=682) 402 K/CU MM 150-450 MEAN PLATELET VOLUME (BEAKER) (test msiy=696) 10.6 fL 9.4-12.4 NUCLEATED RED BLOOD CELLS (BEAKER) (test 0 /100 WBC 0-0 zqkj=884) (CELLAVISION MANUAL DIFF)[id number] 10:44:00 Test Item Value Reference Range Comments NEUTROPHILS - REL (CELLAVISION)(BEAKER) (test 83 % puek=7236) LYMPHOCYTES - REL (CELLAVISION)(BEAKER) (test 2 % ytwu=7694) MONOCYTES - REL (CELLAVISION)(BEAKER) (test 9 % zjrx=1845) EOSINOPHILS - REL (CELLAVISION)(BEAKER) (test 3 % jmip=2591) MYELOCYTES - REL (CELLAVISION)(BEAKER) (test 1 % 0-0 txen=2340) BANDS - REL (CELLAVISION)(BEAKER) (test 2 % 0-10 satn=9957) NEUTROPHILS - ABS (CELLAVISION)(BEAKER) (test 11.87 K/ul 1.78-5.38 wuuq=2441) LYMPHOCYTES - ABS (CELLAVISION)(BEAKER) (test 0.29 K/ul 1.32-3.57 qbby=7650) MONOCYTES - ABS (CELLAVISION)(BEAKER) (test 1.29 K/uL 0.30-0.82 hxpn=6278) EOSINOPHILS - ABS (CELLAVISION)(BEAKER) (test 0.43 K/uL 0.04-0.54 nbda=7642) MYELOCYTES-ABS (CELLAVISION)(BEAKER) (test 0.14 K/uL 0.00-0.00 zzbi=6284) BANDS - ABS (CELLAVISION)(BEAKER) (test 0.29 K/uL 0.00-0.80 htqi=9405) TOTAL COUNTED (BEAKER) (test vppj=0196) 100 WBC MORPHOLOGY (BEAKER) (test jtjs=639) Normal GIANT PLATELETS (BEAKER) (test zrzl=906) Present POLYCHROMATOPHILLIC RBCS(BEAKER) (test zvkf=795) 1+ few ANISOCYTOSIS (BEAKER) (test vnjk=587) 1+ few ARTIFACT (CELLAVISION)(BEAKER) (test gywf=8041) Present PLATELET CONCENTRATION (CELLAVISION)(BEAKER) Adequate (test safw=3317) Received comment: User comments: Slide comments:[id number] 06:44:00 Test Item Value Reference Range Comments MAGNESIUM (BEAKER) (test 2.1 mg/dL 1.6-2.6 Specimen slightly hemolyzed ngeu=777) [id number] 06:44:00 Test Item Value Reference Range Comments PHOSPHORUS (BEAKER) (test 5.0 mg/dL 2.3-4.7 Specimen slightly hemolyzed afig=157) BASIC METABOLIC [id number] 06:44:00 Test Item Value Reference Range Comments SODIUM (BEAKER) (test 138 meq/L 136-145 bhqd=377) POTASSIUM (BEAKER) (test 4.6 meq/L 3.5-5.1 Specimen slightly cdve=047) hemolyzed CHLORIDE (BEAKER) (test 99 meq/L 98-107 gfpc=158) CO2 (BEAKER) (test 30 meq/L 22-29 lmjq=134) BLOOD UREA NITROGEN 10 mg/dL 7-21 (BEAKER) (test iypd=358) CREATININE (BEAKER) (test 0.67 mg/dL 0.57-1.25 Specimen slightly pbft=201) hemolyzed GLUCOSE RANDOM (BEAKER) 87 mg/dL 70-105 (test oraa=191) CALCIUM (BEAKER) (test 8.7 mg/dL 8.4-10.2 nbcs=738) EGFR (BEAKER) (test 127 mL/min/1.73 sq m ESTIMATED GFR IS NOT lzbk=7725) ACCURATE CREATININE CLEARANCE IN PREDICTING GLOMERULAR FILTRATION RATE. ESTIMATED GFR IS NOT APPLICABLE FOR DIALYSIS PATIENTS. PT/[id number] 06:06:00 Test Item Value Reference Range Comments PROTIME (BEAKER) (test nqhv=494) 15.6 seconds 11.7-14.7 INR (BEAKER) (test wmsa=038) 1.2 <=5.9 PARTIAL THROMBOPLASTIN TIME (BEAKER) (test 46.0 seconds 22.5-36.0 gxwa=879) RECOMMENDED COUMADIN/WARFARIN INR THERAPY RANGESSTANDARD DOSE: 2.0 - 3.0 Includes: PROPHYLAXIS forvenous thrombosis, systemic embolization; TREATMENT for venous thrombosis and/or pulmonary embolus.HIGH RISK: Target INR is 2.5-3.5 for patients with mechanical heart valves.SPUTUM CULTURE + GRAM [id number] 14:44:00 Test Item Value Reference Range Comments CULTURE (BEAKER) (test Oropharyngeal contamination, pdef=1332) specimen rejected. Recollect requested. GRAM STAIN RESULT (BEAKER) <1+ WBCs (test ukjg=7085) GRAM STAIN RESULT (BEAKER) >25 epithelial cells (test sdqu=20812) GRAM STAIN RESULT (BEAKER) <1+ gram positive rods (test ydpv=73262) RAD, CHEST, 1 VIEW, NON [id number] 13:59:00Reason for exam:-> leukocytosis in setting of [...] and mediastinal contours unremarkable. Signed : Randolph aMn MDReport Verified Date/Time: 07/19/2018 13:59:21 Reading Location: [address] Consult Reading Room URINALYSIS W/ REFLEX URINE [id number] 11:14:00 Test Item Value Reference Range Comments COLOR (BEAKER) (test pvaf=502) Light Yellow CLARITY (BEAKER) (test gqwk=695) Clear SPECIFIC GRAVITY UA (BEAKER) (test wgtk=766) 1.013 1.001-1.035 PH UA (BEAKER) (test tugj=509) 6.0 5.0-8.0 PROTEIN UA (BEAKER) (test flvi=293) Negative Negative GLUCOSE UA (BEAKER) (test mpmq=303) Negative Negative KETONES UA (BEAKER) (test dsac=038) Negative Negative BILIRUBIN UA (BEAKER) (test etwz=642) Negative Negative BLOOD UA (BEAKER) (test tbod=897) Trace Negative NITRITE UA (BEAKER) (test nuzm=277) Negative Negative LEUKOCYTE ESTERASE UA (BEAKER) (test atue=508) Small Negative UROBILINOGEN UA (BEAKER) (test vvzu=589) 0.2 mg/dL 0.2-1.0 RBC UA (BEAKER) (test zqdj=424) 2 /HPF WBC UA (BEAKER) (test cssx=489) 15 /HPF MUCUS (BEAKER) (test zbut=5556) Occasional HYALINE CASTS (BEAKER) (test kybb=310) 2 /LPF SOURCE(BEAKER) (test nump=7737) POCT-GLUCOSE [id number] 06:46:00 Test Item Value Reference Range Comments POC-GLUCOSE METER (BEAKER) 102 mg/dL 70-110 TESTED AT [facility] [address] [facility] (test qjyf=2918) [facility] [address] [id number] 04:52:00 Test Item Value Reference Range Comments PHOSPHORUS (BEAKER) (test oerb=786) 4.1 mg/dL 2.3-4.7 [id number] 04:52:00 Test Item Value Reference Range Comments MAGNESIUM (BEAKER) (test iqrr=293) 1.8 mg/dL 1.6-2.6 BASIC METABOLIC [id number] 04:52:00 Test Item Value Reference Range Comments SODIUM (BEAKER) (test 138 meq/L 136-145 qftv=748) POTASSIUM (BEAKER) (test 3.7 meq/L 3.5-5.1 nhck=569) CHLORIDE (BEAKER) (test 101 meq/L 98-107 fxsu=721) CO2 (BEAKER) (test 26 meq/L 22-29 pysx=979) BLOOD UREA NITROGEN 10 mg/dL 7-21 (BEAKER) (test nssv=781) CREATININE (BEAKER) (test 0.67 mg/dL 0.57-1.25 lifn=483) GLUCOSE RANDOM (BEAKER) 111 mg/dL 70-105 (test erju=720) CALCIUM (BEAKER) (test 8.5 mg/dL 8.4-10.2 zmnn=369) EGFR (BEAKER) (test 127 mL/min/1.73 sq m ESTIMATED GFR IS NOT djhy=1503) ACCURATE CREATININE CLEARANCE IN PREDICTING GLOMERULAR FILTRATION RATE. ESTIMATED GFR IS NOT APPLICABLE FOR DIALYSIS PATIENTS. CBC W/PLT COUNT & AUTO [id number] 04:25:00 Test Item Value Reference Range Comments WHITE BLOOD CELL COUNT (BEAKER) (test qikb=725) 13.6 K/ L 3.5-10.5 RED BLOOD CELL COUNT (BEAKER) (test kvgd=612) 3.58 M/ L 4.63-6.08 HEMOGLOBIN (BEAKER) (test ybpn=451) 10.8 GM/DL 13.7-17.5 HEMATOCRIT (BEAKER) (test kwxr=189) 34.8 % 40.1-51.0 MEAN CORPUSCULAR VOLUME (BEAKER) (test mqeb=528) 97.2 fL 79.0-92.2 MEAN CORPUSCULAR HEMOGLOBIN (BEAKER) (test 30.2 pg 25.7-32.2 dshz=639) MEAN CORPUSCULAR HEMOGLOBIN CONC (BEAKER) (test 31.0 GM/DL 32.3-36.5 cvui=873) RED CELL DISTRIBUTION WIDTH (BEAKER) (test 15.1 % 11.6-14.4 vrsg=485) PLATELET COUNT (BEAKER) (test ddxy=526) 392 K/CU MM 150-450 MEAN PLATELET VOLUME (BEAKER) (test nbsb=518) 10.0 fL 9.4-12.4 NUCLEATED RED BLOOD CELLS (BEAKER) (test 0 /100 WBC 0-0 uxdm=167) NEUTROPHILS RELATIVE PERCENT (BEAKER) (test 78 % ipcc=916) LYMPHOCYTES RELATIVE PERCENT (BEAKER) (test 5 % zglw=413) MONOCYTES RELATIVE PERCENT (BEAKER) (test 10 % zpay=983) EOSINOPHILS RELATIVE PERCENT (BEAKER) (test 2 % fvjd=750) BASOPHILS RELATIVE PERCENT (BEAKER) (test 1 % cqgn=296) NEUTROPHILS ABSOLUTE COUNT (BEAKER) (test 10.68 K/ L 1.78-5.38 avqc=702) LYMPHOCYTES ABSOLUTE COUNT (BEAKER) (test 0.68 K/ L 1.32-3.57 chip=239) MONOCYTES ABSOLUTE COUNT (BEAKER) (test 1.40 K/ L 0.30-0.82 urxv=742) EOSINOPHILS ABSOLUTE COUNT (BEAKER) (test 0.31 K/ L 0.04-0.54 btaf=149) BASOPHILS ABSOLUTE COUNT (BEAKER) (test 0.08 K/ L 0.01-0.08 qbcm=946) IMMATURE GRANULOCYTES-RELATIVE PERCENT (BEAKER) 3 % 0-1 (test nled=3535) [id number] 04:11:00 Test Item Value Reference Range Comments PROTIME (BEAKER) (test brfs=814) 15.8 seconds 11.7-14.7 INR (BEAKER) (test khgt=284) 1.2 <=5.9 PARTIAL THROMBOPLASTIN TIME (BEAKER) (test 48.2 seconds 22.5-36.0 hvfw=035) RECOMMENDED COUMADIN/WARFARIN INR THERAPY RANGESSTANDARD DOSE: 2.0 - 3.0 Includes: PROPHYLAXIS forvenous thrombosis, systemic embolization; TREATMENT for venous thrombosis and/or pulmonary embolus.HIGH RISK: Target INR is 2.5-3.5 for patients with mechanical heart valves.POCT-GLUCOSE [id number] 00:11:00 Test Item Value Reference Range Comments POC-GLUCOSE METER (BEAKER) 76 mg/dL 70-110 TESTED AT [address] (test yfhe=1804) [place] [address] POCT-GLUCOSE [id number] 17:53:00 Test Item Value Reference Range Comments POC-GLUCOSE METER (BEAKER) 94 mg/dL 70-110 TESTED AT [address] (test njgf=2418) [place] [address] T4, [id number] 11:41:00 Test Item Value Reference Range Comments FREE T4 (BEAKER) (test yled=357) 0.90 ng/dL 0.70-1.48 POCT-GLUCOSE [id number] 11:35:00 Test Item Value Reference Range Comments POC-GLUCOSE METER (BEAKER) 103 mg/dL 70-110 TESTED AT [address] (test bvmi=5825) [place] [address] TSH/FREE T4 IF [id number] 10:50:00 Test Item Value Reference Range Comments THYROID STIMULATING HORMONE (BEAKER) (test 14.67 uIU/mL 0.35-4.94 knko=389) POCT-GLUCOSE [id number] 06:42:00 Test Item Value Reference Range Comments POC-GLUCOSE METER (BEAKER) 111 mg/dL 70-110 TESTED AT [address] (test nwvi=7949) [place] [address] CBC W/PLT COUNT & AUTO [id number] 05:20:00 Test Item Value Reference Range Comments WHITE BLOOD CELL COUNT (BEAKER) (test xhuw=253) 11.4 K/ L 3.5-10.5 RED BLOOD CELL COUNT (BEAKER) (test gkbn=146) 3.40 M/ L 4.63-6.08 HEMOGLOBIN (BEAKER) (test aikm=803) 10.3 GM/DL 13.7-17.5 HEMATOCRIT (BEAKER) (test gudm=819) 33.6 % 40.1-51.0 MEAN CORPUSCULAR VOLUME (BEAKER) (test pqfv=834) 98.8 fL 79.0-92.2 MEAN CORPUSCULAR HEMOGLOBIN (BEAKER) (test 30.3 pg 25.7-32.2 ryih=431) MEAN CORPUSCULAR HEMOGLOBIN CONC (BEAKER) (test 30.7 GM/DL 32.3-36.5 hlck=313) RED CELL DISTRIBUTION WIDTH (BEAKER) (test 15.3 % 11.6-14.4 furh=565) PLATELET COUNT (BEAKER) (test fnww=905) 365 K/CU MM 150-450 MEAN PLATELET VOLUME (BEAKER) (test lkmq=330) 10.2 fL 9.4-12.4 NUCLEATED RED BLOOD CELLS (BEAKER) (test 0 /100 WBC 0-0 oyfz=993) NEUTROPHILS RELATIVE PERCENT (BEAKER) (test 80 % chxo=370) LYMPHOCYTES RELATIVE PERCENT (BEAKER) (test 6 % qghy=930) MONOCYTES RELATIVE PERCENT (BEAKER) (test 9 % mday=101) EOSINOPHILS RELATIVE PERCENT (BEAKER) (test 3 % shbt=936) BASOPHILS RELATIVE PERCENT (BEAKER) (test 0 % iqcv=930) NEUTROPHILS ABSOLUTE COUNT (BEAKER) (test 9.06 K/ L 1.78-5.38 kfxb=121) LYMPHOCYTES ABSOLUTE COUNT (BEAKER) (test 0.72 K/ L 1.32-3.57 ezqy=719) MONOCYTES ABSOLUTE COUNT (BEAKER) (test 1.06 K/ L 0.30-0.82 jjnc=351) EOSINOPHILS ABSOLUTE COUNT (BEAKER) (test 0.28 K/ L 0.04-0.54 onou=042) BASOPHILS ABSOLUTE COUNT (BEAKER) (test 0.05 K/ L 0.01-0.08 uhpx=129) IMMATURE GRANULOCYTES-RELATIVE PERCENT (BEAKER) 2 % 0-1 (test harx=1560) [id number] 05:00:00 Test Item Value Reference Range Comments PHOSPHORUS (BEAKER) (test pohr=464) 5.2 mg/dL 2.3-4.7 [id number] 05:00:00 Test Item Value Reference Range Comments MAGNESIUM (BEAKER) (test wgdj=849) 2.0 mg/dL 1.6-2.6 BASIC METABOLIC [id number] 05:00:00 Test Item Value Reference Range Comments SODIUM (BEAKER) (test 141 meq/L 136-145 sovk=245) POTASSIUM (BEAKER) (test 3.7 meq/L 3.5-5.1 bojl=685) CHLORIDE (BEAKER) (test 102 meq/L 98-107 sout=585) CO2 (BEAKER) (test 29 meq/L 22-29 ciiu=279) BLOOD UREA NITROGEN 7 mg/dL 7-21 (BEAKER) (test fgdd=623) CREATININE (BEAKER) (test 0.68 mg/dL 0.57-1.25 zuej=570) GLUCOSE RANDOM (BEAKER) 114 mg/dL 70-105 (test bssj=276) CALCIUM (BEAKER) (test 8.2 mg/dL 8.4-10.2 gwha=090) EGFR (BEAKER) (test 124 mL/min/1.73 sq m ESTIMATED GFR IS NOT bbdi=6318) ACCURATE CREATININE CLEARANCE IN PREDICTING GLOMERULAR FILTRATION RATE. ESTIMATED GFR IS NOT APPLICABLE FOR DIALYSIS PATIENTS. [id number] 04:55:00 Test Item Value Reference Range Comments PROTIME (BEAKER) (test jdfj=816) 15.2 seconds 11.7-14.7 INR (BEAKER) (test mchc=318) 1.2 <=5.9 PARTIAL THROMBOPLASTIN TIME (BEAKER) (test 38.9 seconds 22.5-36.0 mkvs=759) RECOMMENDED COUMADIN/WARFARIN INR THERAPY RANGESSTANDARD DOSE: 2.0 - 3.0 Includes: PROPHYLAXIS forvenous thrombosis, systemic embolization; TREATMENT for venous thrombosis and/or pulmonary embolus.HIGH RISK: Target INR is 2.5-3.5 for patients with mechanical heart valves.CBC W/PLT COUNT & AUTO [id number] 08:47:00 Test Item Value Reference Range Comments WHITE BLOOD CELL COUNT (BEAKER) (test wazy=687) 13.2 K/ L 3.5-10.5 RED BLOOD CELL COUNT (BEAKER) (test fvti=832) 3.21 M/ L 4.63-6.08 HEMOGLOBIN (BEAKER) (test gdsj=294) 9.8 GM/DL 13.7-17.5 HEMATOCRIT (BEAKER) (test jkjg=567) 30.9 % 40.1-51.0 MEAN CORPUSCULAR VOLUME (BEAKER) (test utus=799) 96.3 fL 79.0-92.2 MEAN CORPUSCULAR HEMOGLOBIN (BEAKER) (test 30.5 pg 25.7-32.2 laaw=548) MEAN CORPUSCULAR HEMOGLOBIN CONC (BEAKER) (test 31.7 GM/DL 32.3-36.5 czyx=356) RED CELL DISTRIBUTION WIDTH (BEAKER) (test 15.2 % 11.6-14.4 kjii=700) PLATELET COUNT (BEAKER) (test ssgf=816) 310 K/CU MM 150-450 MEAN PLATELET VOLUME (BEAKER) (test ibmf=536) 10.1 fL 9.4-12.4 NUCLEATED RED BLOOD CELLS (BEAKER) (test 0 /100 WBC 0-0 shqm=768) (CELLAVISION MANUAL DIFF)2018-07-17 08:47:00 Test Item Value Reference Range Comments NEUTROPHILS - REL (CELLAVISION)(BEAKER) (test 88 % ckfd=7055) LYMPHOCYTES - REL (CELLAVISION)(BEAKER) (test 2 % oueg=0378) MONOCYTES - REL (CELLAVISION)(BEAKER) (test 5 % svno=9845) EOSINOPHILS - REL (CELLAVISION)(BEAKER) (test 3 % zqrf=7238) MYELOCYTES - REL (CELLAVISION)(BEAKER) (test 1 % 0-0 xpim=0730) ATYPICAL LYMPHOCYTES - REL (CELLAVISION)(BEAKER) 1 % 0-0 (test rcyh=8147) NEUTROPHILS - ABS (CELLAVISION)(BEAKER) (test 11.62 K/ul 1.78-5.38 zuwl=8658) LYMPHOCYTES - ABS (CELLAVISION)(BEAKER) (test 0.26 K/ul 1.32-3.57 nxjq=4124) MONOCYTES - ABS (CELLAVISION)(BEAKER) (test 0.66 K/uL 0.30-0.82 aror=9641) EOSINOPHILS - ABS (CELLAVISION)(BEAKER) (test 0.40 K/uL 0.04-0.54 tuqj=1440) MYELOCYTES-ABS (CELLAVISION)(BEAKER) (test 0.13 K/uL 0.00-0.00 ndvz=1839) ATYPICAL LYMPHOCYTES - ABS (CELLAVISION)(BEAKER) 0.13 K/uL 0.00-0.00 (test lzdu=0468) TOTAL COUNTED (BEAKER) (test pwhy=0094) 100 WBC MORPHOLOGY (BEAKER) (test kamr=659) Normal PLT MORPHOLOGY (BEAKER) (test acad=729) Normal ANISOCYTOSIS (BEAKER) (test meuh=132) 2+ moderate MICROCYTES (BEAKER) (test hdru=559) 2+ moderate ARTIFACT (CELLAVISION)(BEAKER) (test gwiz=0290) Present PLATELET CONCENTRATION (CELLAVISION)(BEAKER) Adequate (test rxva=2778) Received comment: User comments: Slide comments:POCT-GLUCOSE [id number] 06: 41:00 Test Item Value Reference Range Comments POC-GLUCOSE METER (BEAKER) 115 mg/dL 70-110 TESTED AT [facility] [address] [facility] (test nzvo=5741) [facility] [address] BASIC METABOLIC [id number] 04:53:00 Test Item Value Reference Range Comments SODIUM (BEAKER) (test 138 meq/L 136-145 lpck=662) POTASSIUM (BEAKER) (test 3.4 meq/L 3.5-5.1 qtye=746) CHLORIDE (BEAKER) (test 104 meq/L 98-107 npqj=298) CO2 (BEAKER) (test 25 meq/L 22-29 lgwf=124) BLOOD UREA NITROGEN 7 mg/dL 7-21 (BEAKER) (test ueqv=368) CREATININE (BEAKER) (test 0.68 mg/dL 0.57-1.25 guxn=573) GLUCOSE RANDOM (BEAKER) 173 mg/dL 70-105 (test sbhe=969) CALCIUM (BEAKER) (test 7.6 mg/dL 8.4-10.2 blez=797) EGFR (BEAKER) (test 124 mL/min/1.73 sq m ESTIMATED GFR IS NOT srgb=4197) ACCURATE CREATININE CLEARANCE IN PREDICTING GLOMERULAR FILTRATION RATE. ESTIMATED GFR IS NOT APPLICABLE FOR DIALYSIS PATIENTS. [id number] 04:37:00 Test Item Value Reference Range Comments PHOSPHORUS (BEAKER) (test tsdw=253) 3.9 mg/dL 2.3-4.7 [id number] 04:37:00 Test Item Value Reference Range Comments MAGNESIUM (BEAKER) (test tvse=674) 1.6 mg/dL 1.6-2.6 [id number] 04:37:00 Test Item Value Reference Range Comments ALBUMIN (BEAKER) (test mtmp=6055) 3.2 g/dL 3.5-5.0 [id number] 04:24:00 Test Item Value Reference Range Comments PROTIME (BEAKER) (test rzwx=858) 15.9 seconds 11.7-14.7 INR (BEAKER) (test ujau=192) 1.2 <=5.9 PARTIAL THROMBOPLASTIN TIME (BEAKER) (test 51.7 seconds 22.5-36.0 yisv=010) RECOMMENDED COUMADIN/WARFARIN INR THERAPY RANGESSTANDARD DOSE: 2.0 - 3.0 Includes: PROPHYLAXIS forvenous thrombosis, systemic embolization; TREATMENT for venous thrombosis and/or pulmonary embolus.HIGH RISK: Target INR is 2.5-3.5 for patients with mechanical heart valves.RAD, CHEST, 1 VIEW, NON [id number] 03:56:00Reason for exam:->atelectasisShould this be performed [...] MDReport Verified Date/Time: 07/17/2018 03:56:49 Reading Location: [address] Reading Room POCT-GLUCOSE [id number] 00: 56:00 Test Item Value Reference Range Comments POC-GLUCOSE METER (BEAKER) 115 mg/dL 70-110 TESTED AT [facility] [address] [facility] (test hemv=1787) [facility] [address] POCT-GLUCOSE [id number] 18:10:00 Test Item Value Reference Range Comments POC-GLUCOSE METER (BEAKER) 116 mg/dL 70-110 TESTED AT [address] (test zfhf=3407) [place] [id number] POCT-GLUCOSE [id number] 13:10:00 Test Item Value Reference Range Comments POC-GLUCOSE METER (BEAKER) 115 mg/dL 70-110 TESTED AT [address] (test owzd=6315) [place] [address] RAD, CHEST, 1 VIEW, NON [id number] 08:20:00Reason for exam:-> atelectasisShould this be performed [...] Gaudencio Barrett Verified Date/Time: 2018 08:20:57 ReadingLocation: [facility] B1 C013X Ortho Consult Reading Room TROPONIN [id number] 08:03:00 Test Item Value Reference Range Comments TROPONIN I (BEAKER) (test elhx=837) 0.01 ng/mL 0.00-0.03 Troponin I (TnI) levels [...] acute neurological disease, and persistent tachyarrhythmia.BLOOD GAS, [id number] 07:42:00 Test Item Value Reference Range Comments PH ARTERIAL (BEAKER) (test lifo=956) 7.42 7.35-7.45 PCO2 ARTERIAL (BEAKER) (test xeet=916) 40 mmHg 35-45 PO2 ARTERIAL (BEAKER) (test qvst=657) 77 mmHg 80-90 O2 SATURATION ARTERIAL (BEAKER) (test ipvi=579) 95.8 % 96.0-97.0 HCO3 ARTERIAL (BEAKER) (test xcwf=711) 25 mmol/L 21-29 BASE EXCESS ARTERIAL (BEAKER) (test kayh=786) 0.9 mmol/L -2.0-3.0 PATIENT TEMPERATURE (BEAKER) (test uzpq=0794) 36.8 C FIO2 (BEAKER) (test msjg=4947) 44.0 % POCT-GLUCOSE [id number] 06:03:00 Test Item Value Reference Range Comments POC-GLUCOSE METER (BEAKER) 120 mg/dL 70-110 TESTED AT [address] (test qfhw=3946) [facility] [address] CBC W/PLT COUNT & AUTO [id number] 04:00:00 Test Item Value Reference Range Comments WHITE BLOOD CELL COUNT (BEAKER) (test ccrk=354) 20.3 K/ L 3.5-10.5 RED BLOOD CELL COUNT (BEAKER) (test nada=063) 3.66 M/ L 4.63-6.08 HEMOGLOBIN (BEAKER) (test ptsg=311) 11.3 GM/DL 13.7-17.5 HEMATOCRIT (BEAKER) (test fpdq=708) 36.0 % 40.1-51.0 MEAN CORPUSCULAR VOLUME (BEAKER) (test kvct=686) 98.4 fL 79.0-92.2 MEAN CORPUSCULAR HEMOGLOBIN (BEAKER) (test 30.9 pg 25.7-32.2 bktz=021) MEAN CORPUSCULAR HEMOGLOBIN CONC (BEAKER) (test 31.4 GM/DL 32.3-36.5 mxqr=860) RED CELL DISTRIBUTION WIDTH (BEAKER) (test 15.0 % 11.6-14.4 vuja=363) PLATELET COUNT (BEAKER) (test jlno=697) 319 K/CU MM 150-450 MEAN PLATELET VOLUME (BEAKER) (test exuw=685) 10.5 fL 9.4-12.4 NUCLEATED RED BLOOD CELLS (BEAKER) (test 0 /100 WBC 0-0 gusw=348) NEUTROPHILS RELATIVE PERCENT (BEAKER) (test 86 % jpkj=664) LYMPHOCYTES RELATIVE PERCENT (BEAKER) (test 4 % zygl=001) MONOCYTES RELATIVE PERCENT (BEAKER) (test 9 % fdhx=507) EOSINOPHILS RELATIVE PERCENT (BEAKER) (test 0 % nuus=303) BASOPHILS RELATIVE PERCENT (BEAKER) (test 0 % qzqn=408) NEUTROPHILS ABSOLUTE COUNT (BEAKER) (test 17.32 K/ L 1.78-5.38 imrq=425) LYMPHOCYTES ABSOLUTE COUNT (BEAKER) (test 0.72 K/ L 1.32-3.57 wqgo=109) MONOCYTES ABSOLUTE COUNT (BEAKER) (test 1.82 K/ L 0.30-0.82 aprw=655) EOSINOPHILS ABSOLUTE COUNT (BEAKER) (test 0.07 K/ L 0.04-0.54 usep=156) BASOPHILS ABSOLUTE COUNT (BEAKER) (test 0.07 K/ L 0.01-0.08 kjbu=475) IMMATURE GRANULOCYTES-RELATIVE PERCENT (BEAKER) 1 % 0-1 (test nppx=2719) [id number] 03:38:00 Test Item Value Reference Range Comments MAGNESIUM (BEAKER) (test 2.0 mg/dL 1.6-2.6 Specimen slightly hemolyzed mdma=743) [id number] 03:38:00 Test Item Value Reference Range Comments PHOSPHORUS (BEAKER) (test 3.6 mg/dL 2.3-4.7 Specimen slightly hemolyzed evro=046) BASIC METABOLIC [id number] 03:38:00 Test Item Value Reference Range Comments SODIUM (BEAKER) (test 140 meq/L 136-145 vsis=126) POTASSIUM (BEAKER) (test 4.0 meq/L 3.5-5.1 Specimen slightly yicm=492) hemolyzed CHLORIDE (BEAKER) (test 105 meq/L 98-107 ubfj=115) CO2 (BEAKER) (test 25 meq/L 22-29 wbvl=297) BLOOD UREA NITROGEN 5 mg/dL 7-21 (BEAKER) (test ouyi=537) CREATININE (BEAKER) (test 0.73 mg/dL 0.57-1.25 Specimen slightly vpbh=636) hemolyzed GLUCOSE RANDOM (BEAKER) 129 mg/dL 70-105 (test yguq=363) CALCIUM (BEAKER) (test 8.5 mg/dL 8.4-10.2 nypk=173) EGFR (BEAKER) (test 115 mL/min/1.73 sq m ESTIMATED GFR IS NOT cdab=9356) ACCURATE CREATININE CLEARANCE IN PREDICTING GLOMERULAR FILTRATION RATE. ESTIMATED GFR IS NOT APPLICABLE FOR DIALYSIS PATIENTS. [id number] 03:38:00 Test Item Value Reference Range Comments ALBUMIN (BEAKER) (test 3.9 g/dL 3.5-5.0 Specimen slightly hemolyzed komc=2550) [id number] 03:31:00 Test Item Value Reference Range Comments PROTIME (BEAKER) (test djqk=437) 15.5 seconds 11.7-14.7 INR (BEAKER) (test hcqe=336) 1.2 <=5.9 PARTIAL THROMBOPLASTIN TIME (BEAKER) (test 34.5 seconds 22.5-36.0 ztyd=673) RECOMMENDED COUMADIN/WARFARIN INR THERAPY RANGESSTANDARD DOSE: 2.0 - 3.0 Includes: PROPHYLAXIS forvenous thrombosis, systemic embolization; TREATMENT for venous thrombosis and/or pulmonary embolus.HIGH RISK: Target INR is 2.5-3.5 for patients with mechanical heart valves.POCT-GLUCOSE [id number] 23:39:00 Test Item Value Reference Range Comments POC-GLUCOSE METER (BEAKER) 121 mg/dL 70-110 TESTED AT [address] (test vptu=8332) [facility] [address] POCT-GLUCOSE [id number] 18:25:00 Test Item Value Reference Range Comments POC-GLUCOSE METER (BEAKER) 112 mg/dL 70-110 TESTED AT [address] (test uorf=4991) [facility] [address] T4, [id number] 12:56:00 Test Item Value Reference Range Comments FREE T4 (BEAKER) (test sfna=448) 1.17 ng/dL 0.70-1.48 POCT-GLUCOSE [id number] 11:35:00 Test Item Value Reference Range Comments POC-GLUCOSE METER (BEAKER) 143 mg/dL 70-110 TESTED AT [facility] [address] (test beud=8182) [place] [address] CBC W/PLT COUNT & AUTO [id number] 07:50:00 Test Item Value Reference Range Comments WHITE BLOOD CELL COUNT (BEAKER) (test bufz=671) 24.1 K/ L 3.5-10.5 RED BLOOD CELL COUNT (BEAKER) (test uqad=853) 3.75 M/ L 4.63-6.08 HEMOGLOBIN (BEAKER) (test mtee=525) 11.7 GM/DL 13.7-17.5 HEMATOCRIT (BEAKER) (test gbdd=002) 35.7 % 40.1-51.0 MEAN CORPUSCULAR VOLUME (BEAKER) (test ztpg=426) 95.2 fL 79.0-92.2 MEAN CORPUSCULAR HEMOGLOBIN (BEAKER) (test 31.2 pg 25.7-32.2 tsqr=725) MEAN CORPUSCULAR HEMOGLOBIN CONC (BEAKER) (test 32.8 GM/DL 32.3-36.5 sebz=496) RED CELL DISTRIBUTION WIDTH (BEAKER) (test 14.8 % 11.6-14.4 vkuv=340) PLATELET COUNT (BEAKER) (test qucj=452) 334 K/CU MM 150-450 MEAN PLATELET VOLUME (BEAKER) (test nehe=243) 10.3 fL 9.4-12.4 NUCLEATED RED BLOOD CELLS (BEAKER) (test 0 /100 WBC 0-0 gsgc=062) (CELLAVISION MANUAL DIFF)2018-07-15 07:50:00 Test Item Value Reference Range Comments NEUTROPHILS - REL (CELLAVISION)(BEAKER) (test 87 % jolk=4094) LYMPHOCYTES - REL (CELLAVISION)(BEAKER) (test 3 % ycmf=0662) MONOCYTES - REL (CELLAVISION)(BEAKER) (test 5 % ctyb=2942) METAMYELOCYTES - REL (CELLAVISION)(BEAKER) (test 1 % 0-0 rouc=1623) MYELOCYTES - REL (CELLAVISION)(BEAKER) (test 1 % 0-0 mbvf=0310) BANDS - REL (CELLAVISION)(BEAKER) (test 2 % 0-10 kiya=7758) ATYPICAL LYMPHOCYTES - REL (CELLAVISION)(BEAKER) 1 % 0-0 (test anpi=4246) NEUTROPHILS - ABS (CELLAVISION)(BEAKER) (test 20.97 K/ul 1.78-5.38 jgae=9691) LYMPHOCYTES - ABS (CELLAVISION)(BEAKER) (test 0.72 K/ul 1.32-3.57 ddhi=7022) MONOCYTES - ABS (CELLAVISION)(BEAKER) (test 1.21 K/uL 0.30-0.82 gqnj=1796) METAMYELOCYTES - ABS (CELLAVISION)(BEAKER) (test 0.24 K/uL 0.00-0.00 bmwr=4021) MYELOCYTES-ABS (CELLAVISION)(BEAKER) (test 0.24 K/uL 0.00-0.00 atje=1569) BANDS - ABS (CELLAVISION)(BEAKER) (test 0.48 K/uL 0.00-0.80 gtce=9229) ATYPICAL LYMPHOCYTES - ABS (CELLAVISION)(BEAKER) 0.24 K/uL 0.00-0.00 (test vwjc=9516) TOTAL COUNTED (BEAKER) (test fkpz=0901) 100 WBC MORPHOLOGY (BEAKER) (test otxx=108) Normal PLT MORPHOLOGY (BEAKER) (test rbzs=842) Normal ANISOCYTOSIS (BEAKER) (test iukf=644) 2+ moderate MICROCYTES (BEAKER) (test ugal=588) 2+ moderate ARTIFACT (CELLAVISION)(BEAKER) (test icvs=8444) Present PLATELET CONCENTRATION (CELLAVISION)(BEAKER) Adequate (test tfqt=5060) Received comment: User comments: Slide comments:RAD, CHEST, 1 VIEW, NON [id number] -[id number] 05:48:00Reason for exam:->postop laryngectomy with trachShould [...] [place] Verified Date/Time: 2018 05:48:22 Reading Location: [address] Neuro Reading Room POCT-GLUCOSE [id number] 05:47:00 Test Item Value Reference Range Comments POC-GLUCOSE METER (BEAKER) 177 mg/dL 70-110 TESTED AT [facility] [address] [facility] (test cwyd=0099) [facility] [address] [id number] 04:29:00 Test Item Value Reference Range Comments PHOSPHORUS (BEAKER) (test jvhl=388) 2.3 mg/dL 2.3-4.7 [id number] 04:29:00 Test Item Value Reference Range Comments MAGNESIUM (BEAKER) (test gamv=658) 1.7 mg/dL 1.6-2.6 BASIC METABOLIC [id number] 04:29:00 Test Item Value Reference Range Comments SODIUM (BEAKER) (test 136 meq/L 136-145 hmzz=245) POTASSIUM (BEAKER) (test 3.7 meq/L 3.5-5.1 ggyj=613) CHLORIDE (BEAKER) (test 103 meq/L 98-107 bvcf=576) CO2 (BEAKER) (test 24 meq/L 22-29 gxsx=392) BLOOD UREA NITROGEN 7 mg/dL 7-21 (BEAKER) (test uvzr=172) CREATININE (BEAKER) (test 0.73 mg/dL 0.57-1.25 tzzc=444) GLUCOSE RANDOM (BEAKER) 179 mg/dL 70-105 (test txyg=762) CALCIUM (BEAKER) (test 9.2 mg/dL 8.4-10.2 hddc=145) EGFR (BEAKER) (test 115 mL/min/1.73 sq m ESTIMATED GFR IS NOT buft=3617) ACCURATE CREATININE CLEARANCE IN PREDICTING GLOMERULAR FILTRATION RATE. ESTIMATED GFR IS NOT APPLICABLE FOR DIALYSIS PATIENTS. [id number] 04:29:00 Test Item Value Reference Range Comments ALBUMIN (BEAKER) (test nxpx=8005) 3.8 g/dL 3.5-5.0 [id number] 04:22:00 Test Item Value Reference Range Comments PROTIME (BEAKER) (test yxpc=026) 14.5 seconds 11.7-14.7 INR (BEAKER) (test elfw=148) 1.1 <=5.9 PARTIAL THROMBOPLASTIN TIME (BEAKER) (test 42.0 seconds 22.5-36.0 szbn=068) RECOMMENDED COUMADIN/WARFARIN INR THERAPY RANGESSTANDARD DOSE: 2.0 - 3.0 Includes: PROPHYLAXIS forvenous thrombosis, systemic embolization; TREATMENT for venous thrombosis and/or pulmonary embolus.HIGH RISK: Target INR is 2.5-3.5 for patients with mechanical heart valves.POCT-GLUCOSE [id number] 23:55:00 Test Item Value Reference Range Comments POC-GLUCOSE METER (BEAKER) 159 mg/dL 70-110 TESTED AT [facility] [address] [place] [address] (test wrlt=6659) [facility] [address] [id number] 19:41:00 Test Item Value Reference Range Comments THYROID STIMULATING HORMONE (BEAKER) (test 6.82 uIU/mL 0.35-4.94 jfmg=229) [id number] 19:26:00 Test Item Value Reference Range Comments PHOSPHORUS (BEAKER) (test pgvp=495) 4.9 mg/dL 2.3-4.7 Postop labsPostop labsPostop labsPostop [id number] 19:26:00 Test Item Value Reference Range Comments MAGNESIUM (BEAKER) (test hqno=509) 1.9 mg/dL 1.6-2.6 Postop labsPostop labsPostop labsPostop labsBASIC METABOLIC [id number] 19: 26:00 Test Item Value Reference Range Comments SODIUM (BEAKER) (test 140 meq/L 136-145 emsm=438) POTASSIUM (BEAKER) (test 4.6 meq/L 3.5-5.1 aink=218) CHLORIDE (BEAKER) (test 107 meq/L 98-107 kvza=797) CO2 (BEAKER) (test 26 meq/L 22-29 cyyw=494) BLOOD UREA NITROGEN 8 mg/dL 7-21 (BEAKER) (test poxq=228) CREATININE (BEAKER) (test 0.77 mg/dL 0.57-1.25 zpeg=637) GLUCOSE RANDOM (BEAKER) 109 mg/dL 70-105 (test ocmx=964) CALCIUM (BEAKER) (test 9.4 mg/dL 8.4-10.2 tgte=547) EGFR (BEAKER) (test 108 mL/min/1.73 sq m ESTIMATED GFR IS NOT bgpm=9004) ACCURATE CREATININE CLEARANCE IN PREDICTING GLOMERULAR FILTRATION RATE. ESTIMATED GFR IS NOT APPLICABLE FOR DIALYSIS PATIENTS. Postop labsPostop labsPostop labsPostop [id number] 19:26:00 Test Item Value Reference Range Comments ALBUMIN (BEAKER) (test uxkc=6199) 3.9 g/dL 3.5-5.0 Postop labsPostop labsPostop labsPostop [id number] 19:24:00 Test Item Value Reference Range Comments PREALBUMIN (BEAKER) (test 17 mg/dL 14-45 Specimen slightly hemolyzed lira=789) PTH, [id number] 19:23:00 Test Item Value Reference Range Comments PARATHYROID HORMONE INTACT (BEAKER) (test 16.1 pg/mL 8.5-72.5 pdia=811) Postop LabsCBC W/PLT COUNT & AUTO [id number] 18:58:00 Test Item Value Reference Range Comments WHITE BLOOD CELL COUNT (BEAKER) (test ynlw=476) 13.3 K/ L 3.5-10.5 RED BLOOD CELL COUNT (BEAKER) (test ixyq=038) 3.50 M/ L 4.63-6.08 HEMOGLOBIN (BEAKER) (test dmch=633) 10.8 GM/DL 13.7-17.5 HEMATOCRIT (BEAKER) (test kyyo=813) 34.1 % 40.1-51.0 MEAN CORPUSCULAR VOLUME (BEAKER) (test tvtg=922) 97.4 fL 79.0-92.2 MEAN CORPUSCULAR HEMOGLOBIN (BEAKER) (test 30.9 pg 25.7-32.2 mddl=234) MEAN CORPUSCULAR HEMOGLOBIN CONC (BEAKER) (test 31.7 GM/DL 32.3-36.5 lxuq=387) RED CELL DISTRIBUTION WIDTH (BEAKER) (test 15.1 % 11.6-14.4 rmsh=439) PLATELET COUNT (BEAKER) (test ahpq=677) 278 K/CU MM 150-450 MEAN PLATELET VOLUME (BEAKER) (test xlcc=926) 9.5 fL 9.4-12.4 NUCLEATED RED BLOOD CELLS (BEAKER) (test 0 /100 WBC 0-0 sszq=438) NEUTROPHILS RELATIVE PERCENT (BEAKER) (test 84 % tsqd=012) LYMPHOCYTES RELATIVE PERCENT (BEAKER) (test 6 % oklp=210) MONOCYTES RELATIVE PERCENT (BEAKER) (test 8 % nwph=206) EOSINOPHILS RELATIVE PERCENT (BEAKER) (test 1 % mtbu=709) BASOPHILS RELATIVE PERCENT (BEAKER) (test 0 % iwuq=617) NEUTROPHILS ABSOLUTE COUNT (BEAKER) (test 11.15 K/ L 1.78-5.38 zioj=404) LYMPHOCYTES ABSOLUTE COUNT (BEAKER) (test 0.73 K/ L 1.32-3.57 txdk=205) MONOCYTES ABSOLUTE COUNT (BEAKER) (test 1.04 K/ L 0.30-0.82 gcyw=977) EOSINOPHILS ABSOLUTE COUNT (BEAKER) (test 0.15 K/ L 0.04-0.54 ocur=427) BASOPHILS ABSOLUTE COUNT (BEAKER) (test 0.05 K/ L 0.01-0.08 aijc=974) IMMATURE GRANULOCYTES-RELATIVE PERCENT (BEAKER) 1 % 0-1 (test gbpc=4443) BLOOD GAS, [id number] 15:31:00 Test Item Value Reference Range Comments PH ARTERIAL (BEAKER) (test pglx=862) 7.37 7.35-7.45 PCO2 ARTERIAL (BEAKER) (test mdag=767) 46 mmHg 35-45 PO2 ARTERIAL (BEAKER) (test lcsr=283) 273 mmHg 80-90 O2 SATURATION ARTERIAL (BEAKER) (test grqp=320) 99.6 % 96.0-97.0 HCO3 ARTERIAL (BEAKER) (test ytap=794) 26 mmol/L 21-29 BASE EXCESS ARTERIAL (BEAKER) (test bdbu=233) 0.4 mmol/L -2.0-3.0 PATIENT TEMPERATURE (BEAKER) (test zshu=7704) 37.0 C FIO2 (BEAKER) (test ntes=2698) 100.0 % HGB/HCT (H&H) - STAT [id number] 15:31:00 Test Item Value Reference Range Comments HEMOGLOBIN (BEAKER) (test ganb=875) 11.0 g/dL 13.0-16.8 HEMATOCRIT (BEAKER) (test ytmw=079) 32.0 % 40.0-50.0 GLUCOSE-STAT [id number] 15:30:00 Test Item Value Reference Range Comments GLUCOSE RANDOM (BEAKER) (test wooq=620) 87 mg/dL 70-110 SODIUM NA-STAT [id number] 15:30:00 Test Item Value Reference Range Comments SODIUM (BEAKER) (test ijhr=760) 137 meq/L 135-148 POTASSIUM-STAT [id number] 15:30:00 Test Item Value Reference Range Comments POTASSIUM (BEAKER) (test anho=548) 4.0 meq/L 3.6-5.5 ANG, INSERTION G TUBE, W/ [id number] 14:18:00Reason for exam:-> Gastrostomy tubeFINAL REPORT Fluoroscopic guided gastrostomy tube placement, 07/11/2018. Clinical History: Laryngeal cancer. Modality: Fluoroscopy. Patient Services Assistant: Jack Lima MD. Artificial Glass Eye Maker: Dilip Vivas MD. Conscious sedation: 2.0 mg [...] After the tract was dilated, a 14 Croatian catheter was placed into the stomach. The [...] Verified Date/Time: 07/11/2018 14:18 :50 Reading Location: [place] [address] Angio Body Reading Room Electronically signed by: JACK Rose 07/11/2018 02:18 PMTSH/FREE T4 IF [id number] 13:24:00 Test Item Value Reference Range Comments THYROID STIMULATING HORMONE (BEAKER) (test 2.37 uIU/mL 0.35-4.94 yewz=900) RAD, CHEST, PA OR AP, 1 [id number] 11:03:00Reason for exam:->coughShould this be performed at the bedside?->NoFINAL REPORT AP chest HISTORY: Cough. COMPARISON: 06/17/2018. IMPRESSION: Tracheostomy tube present. Heart size normal. Lungs clear without effusion or pneumothorax. Intact skeleton. Signed: Ashok Whitaker Verified Date/Time: 2018 11:03:24 Reading Location: [address] Radiology Reading Room 11:03 AMCOMPREHENSIVE METABOLIC [id number] 10:52:00 Test Item Value Reference Range Comments TOTAL PROTEIN (BEAKER) 7.2 gm/dL 6.0-8.3 (test oeah=069) ALBUMIN (BEAKER) (test 3.9 g/dL 3.5-5.0 vrfm=8509) ALKALINE PHOSPHATASE 98 U/L 40-150 (BEAKER) (test gvoz=876) BILIRUBIN TOTAL (BEAKER) 0.4 mg/dL 0.2-1.2 (test qcyi=529) SODIUM (BEAKER) (test 141 meq/L 136-145 kmcq=036) POTASSIUM (BEAKER) (test 4.4 meq/L 3.5-5.1 guhz=050) CHLORIDE (BEAKER) (test 109 meq/L 98-107 ozrm=966) CO2 (BEAKER) (test 24 meq/L 22-29 bfzr=834) BLOOD UREA NITROGEN 14 mg/dL 7-21 (BEAKER) (test vpea=587) CREATININE (BEAKER) (test 0.78 mg/dL 0.57-1.25 zgbs=619) GLUCOSE RANDOM (BEAKER) 107 mg/dL 70-105 (test rleo=735) CALCIUM (BEAKER) (test 9.4 mg/dL 8.4-10.2 xhej=659) AST (SGOT) (BEAKER) (test 17 U/L 5-34 dbwu=380) ALT (SGPT) (BEAKER) (test 17 U/L 6-55 wgra=430) EGFR (BEAKER) (test 106 mL/min/1.73 sq ESTIMATED GFR IS NOT fkmm=4668) m ACCURATE CREATININE CLEARANCE IN PREDICTING GLOMERULAR FILTRATION RATE. ESTIMATED GFR IS NOT APPLICABLE FOR DIALYSIS PATIENTS. CBC W/PLT COUNT & AUTO [id number] 10:32:00 Test Item Value Reference Range Comments WHITE BLOOD CELL COUNT (BEAKER) (test iqhz=973) 10.8 K/ L 3.5-10.5 RED BLOOD CELL COUNT (BEAKER) (test dcae=215) 4.08 M/ L 4.63-6.08 HEMOGLOBIN (BEAKER) (test qneg=313) 12.6 GM/DL 13.7-17.5 HEMATOCRIT (BEAKER) (test zjbj=658) 39.4 % 40.1-51.0 MEAN CORPUSCULAR VOLUME (BEAKER) (test uewu=504) 96.6 fL 79.0-92.2 MEAN CORPUSCULAR HEMOGLOBIN (BEAKER) (test 30.9 pg 25.7-32.2 ukmk=402) MEAN CORPUSCULAR HEMOGLOBIN CONC (BEAKER) (test 32.0 GM/DL 32.3-36.5 bgui=384) RED CELL DISTRIBUTION WIDTH (BEAKER) (test 15.3 % 11.6-14.4 jmve=774) PLATELET COUNT (BEAKER) (test zwtd=490) 321 K/CU MM 150-450 MEAN PLATELET VOLUME (BEAKER) (test fhmr=025) 9.9 fL 9.4-12.4 NUCLEATED RED BLOOD CELLS (BEAKER) (test 0 /100 WBC 0-0 ygja=683) NEUTROPHILS RELATIVE PERCENT (BEAKER) (test 76 % cngj=001) LYMPHOCYTES RELATIVE PERCENT (BEAKER) (test 7 % vuxq=012) MONOCYTES RELATIVE PERCENT (BEAKER) (test 10 % rnms=020) EOSINOPHILS RELATIVE PERCENT (BEAKER) (test 2 % srer=392) BASOPHILS RELATIVE PERCENT (BEAKER) (test 1 % fuvo=743) NEUTROPHILS ABSOLUTE COUNT (BEAKER) (test 8.18 K/ L 1.78-5.38 yvge=133) LYMPHOCYTES ABSOLUTE COUNT (BEAKER) (test 0.79 K/ L 1.32-3.57 sxhe=442) MONOCYTES ABSOLUTE COUNT (BEAKER) (test 1.04 K/ L 0.30-0.82 nkul=290) EOSINOPHILS ABSOLUTE COUNT (BEAKER) (test 0.16 K/ L 0.04-0.54 qrvz=710) BASOPHILS ABSOLUTE COUNT (BEAKER) (test 0.13 K/ L 0.01-0.08 zoqv=578) IMMATURE GRANULOCYTES-RELATIVE PERCENT (BEAKER) 5 % 0-1 (test fqdc=5346) [id number] 10:30:00 Test Item Value Reference Range Comments PROTIME (BEAKER) (test eoal=841) 14.6 seconds 11.7-14.7 INR (BEAKER) (test zobg=224) 1.1 <=5.9 PARTIAL THROMBOPLASTIN TIME (BEAKER) (test 34.3 seconds 22.5-36.0 xhja=164) RECOMMENDED COUMADIN/WARFARIN INR THERAPY RANGESSTANDARD DOSE: 2.0 - 3.0 Includes: PROPHYLAXIS forvenous thrombosis, systemic embolization; TREATMENT for venous thrombosis and/or pulmonary embolus.HIGH RISK: Target INR is 2.5-3.5 for patients with mechanical heart valves.BLOOD [id number] 20:01:00 Test Item Value Reference Range Comments CULTURE (BEAKER) (test uenh=4946) No growth in 5 days BLOOD [id number] 20:01:00 Test Item Value Reference Range Comments CULTURE (BEAKER) (test tftr=5361) No growth in 5 days CBC W/PLT COUNT & AUTO [id number] 12:54:00 Test Item Value Reference Range Comments WHITE BLOOD CELL COUNT (BEAKER) (test bnaq=683) 6.6 K/ L 3.5-10.5 RED BLOOD CELL COUNT (BEAKER) (test ejgx=030) 3.84 M/ L 4.63-6.08 HEMOGLOBIN (BEAKER) (test oaii=204) 11.9 GM/DL 13.7-17.5 HEMATOCRIT (BEAKER) (test okve=771) 37.1 % 40.1-51.0 MEAN CORPUSCULAR VOLUME (BEAKER) (test pztq=436) 96.6 fL 79.0-92.2 MEAN CORPUSCULAR HEMOGLOBIN (BEAKER) (test 31.0 pg 25.7-32.2 zmeb=835) MEAN CORPUSCULAR HEMOGLOBIN CONC (BEAKER) (test 32.1 GM/DL 32.3-36.5 imct=424) RED CELL DISTRIBUTION WIDTH (BEAKER) (test 15.1 % 11.6-14.4 veqp=634) PLATELET COUNT (BEAKER) (test npsw=070) 282 K/CU MM 150-450 MEAN PLATELET VOLUME (BEAKER) (test amrz=930) 10.3 fL 9.4-12.4 NUCLEATED RED BLOOD CELLS (BEAKER) (test 0 /100 WBC 0-0 wgjj=649) (CELLAVISION MANUAL DIFF)2018-06-21 12:54:00 Test Item Value Reference Range Comments NEUTROPHILS - REL (CELLAVISION)(BEAKER) (test 63 % fqhe=3094) LYMPHOCYTES - REL (CELLAVISION)(BEAKER) (test 10 % zbfy=0128) MONOCYTES - REL (CELLAVISION)(BEAKER) (test 8 % kfix=2998) EOSINOPHILS - REL (CELLAVISION)(BEAKER) (test 2 % sumc=2503) BASOPHILS - REL (CELLAVISION)(BEAKER) (test 2 % vzkv=7513) METAMYELOCYTES - REL (CELLAVISION)(BEAKER) (test 2 % 0-0 uvml=0983) BANDS - REL (CELLAVISION)(BEAKER) (test muty=4275) 12 % 0-10 NEUTROPHILS - ABS (CELLAVISION)(BEAKER) (test 4.16 K/ul 1.78-5.38 fylk=1369) LYMPHOCYTES - ABS (CELLAVISION)(BEAKER) (test 0.66 K/ul 1.32-3.57 alor=4679) MONOCYTES - ABS (CELLAVISION)(BEAKER) (test 0.53 K/uL 0.30-0.82 jzlv=8274) EOSINOPHILS - ABS (CELLAVISION)(BEAKER) (test 0.13 K/uL 0.04-0.54 hywh=2095) BASOPHILS - ABS (CELLAVISION)(BEAKER) (test 0.13 K/uL 0.01-0.08 mfoe=6838) METAMYELOCYTES - ABS (CELLAVISION)(BEAKER) (test 0.13 K/uL 0.00-0.00 lnvh=6859) BANDS - ABS (CELLAVISION)(BEAKER) (test uoxp=7405) 0.79 K/uL 0.00-0.80 TOTAL COUNTED (BEAKER) (test vjxy=1798) 100 WBC MORPHOLOGY (BEAKER) (test ulpa=588) Normal GIANT PLATELETS (BEAKER) (test jqqb=420) Present ANISOCYTOSIS (BEAKER) (test gtec=136) 1+ few ARTIFACT (CELLAVISION)(BEAKER) (test eugz=6197) Present PLATELET CONCENTRATION (CELLAVISION)(BEAKER) (test Adequate nimz=4123) Received comment: User comments: Slide comments:BASIC METABOLIC [id number] 06:44:00 Test Item Value Reference Range Comments SODIUM (BEAKER) (test 137 meq/L 136-145 jlbk=430) POTASSIUM (BEAKER) (test 4.0 meq/L 3.5-5.1 ufqp=496) CHLORIDE (BEAKER) (test 102 meq/L 98-107 kqjn=479) CO2 (BEAKER) (test 27 meq/L 22-29 oolz=341) BLOOD UREA NITROGEN 9 mg/dL 7-21 (BEAKER) (test hhlf=051) CREATININE (BEAKER) (test 0.66 mg/dL 0.57-1.25 givu=407) GLUCOSE RANDOM (BEAKER) 99 mg/dL 70-105 (test vtse=211) CALCIUM (BEAKER) (test 9.0 mg/dL 8.4-10.2 bmvx=213) EGFR (BEAKER) (test 129 mL/min/1.73 sq m ESTIMATED GFR IS NOT mlch=9256) ACCURATE CREATININE CLEARANCE IN PREDICTING GLOMERULAR FILTRATION RATE. ESTIMATED GFR IS NOT APPLICABLE FOR DIALYSIS PATIENTS. BLOOD [id number] 12:01:00 Test Item Value Reference Range Comments CULTURE (BEAKER) (test expe=4120) No growth in 5 days CBC W/PLT COUNT & AUTO [id number] 11:06:00 Test Item Value Reference Range Comments WHITE BLOOD CELL COUNT (BEAKER) (test ibwc=247) 6.7 K/ L 3.5-10.5 RED BLOOD CELL COUNT (BEAKER) (test sgaj=478) 3.88 M/ L 4.63-6.08 HEMOGLOBIN (BEAKER) (test orom=364) 12.4 GM/DL 13.7-17.5 HEMATOCRIT (BEAKER) (test adfb=770) 36.8 % 40.1-51.0 MEAN CORPUSCULAR VOLUME (BEAKER) (test rbfa=238) 94.8 fL 79.0-92.2 MEAN CORPUSCULAR HEMOGLOBIN (BEAKER) (test 32.0 pg 25.7-32.2 xfvo=158) MEAN CORPUSCULAR HEMOGLOBIN CONC (BEAKER) (test 33.7 GM/DL 32.3-36.5 bluc=030) RED CELL DISTRIBUTION WIDTH (BEAKER) (test 15.3 % 11.6-14.4 gilo=382) PLATELET COUNT (BEAKER) (test bnrd=019) 218 K/CU MM 150-450 MEAN PLATELET VOLUME (BEAKER) (test gfpk=972) 10.5 fL 9.4-12.4 NUCLEATED RED BLOOD CELLS (BEAKER) (test 0 /100 WBC 0-0 sueg=625) (CELLAVISION MANUAL DIFF)2018-06-20 11:06:00 Test Item Value Reference Range Comments NEUTROPHILS - REL (CELLAVISION)(BEAKER) (test 77 % huch=3633) LYMPHOCYTES - REL (CELLAVISION)(BEAKER) (test 6 % freq=9563) MONOCYTES - REL (CELLAVISION)(BEAKER) (test 3 % zlgw=3309) EOSINOPHILS - REL (CELLAVISION)(BEAKER) (test 2 % eqxs=2550) BANDS - REL (CELLAVISION)(BEAKER) (test ulxw=4298) 10 % 0-10 ATYPICAL LYMPHOCYTES - REL (CELLAVISION)(BEAKER) 2 % 0-0 (test gmyu=0728) NEUTROPHILS - ABS (CELLAVISION)(BEAKER) (test 5.16 K/ul 1.78-5.38 itpk=7247) LYMPHOCYTES - ABS (CELLAVISION)(BEAKER) (test 0.40 K/ul 1.32-3.57 saxk=7132) MONOCYTES - ABS (CELLAVISION)(BEAKER) (test 0.20 K/uL 0.30-0.82 qkys=5810) EOSINOPHILS - ABS (CELLAVISION)(BEAKER) (test 0.13 K/uL 0.04-0.54 xyjy=5991) BANDS - ABS (CELLAVISION)(BEAKER) (test mwsb=3691) 0.67 K/uL 0.00-0.80 ATYPICAL LYMPHOCYTES - ABS (CELLAVISION)(BEAKER) 0.13 K/uL 0.00-0.00 (test apwu=0432) TOTAL COUNTED (BEAKER) (test czhh=1469) 100 CLUMPED PLATELETS (BEAKER) (test anck=108) Present SMUDGE CELLS (BEAKER) (test chvl=4015) Present GIANT PLATELETS (BEAKER) (test kwko=085) Present TOXIC GRANULATION (BEAKER) (test losv=725) Present ANISOCYTOSIS (BEAKER) (test otvm=294) 1+ few PLATELET CONCENTRATION (CELLAVISION)(BEAKER) (test Adequate siiq=0574) Received comment: User comments: Slide comments:BASIC METABOLIC [id number] 08:11:00 Test Item Value Reference Range Comments SODIUM (BEAKER) (test 134 meq/L 136-145 hjvo=392) POTASSIUM (BEAKER) (test 3.8 meq/L 3.5-5.1 wmpg=251) CHLORIDE (BEAKER) (test 97 meq/L 98-107 rabk=256) CO2 (BEAKER) (test 29 meq/L 22-29 rqsh=092) BLOOD UREA NITROGEN 8 mg/dL 7-21 (BEAKER) (test vpws=531) CREATININE (BEAKER) (test 0.65 mg/dL 0.57-1.25 icqq=064) GLUCOSE RANDOM (BEAKER) 93 mg/dL 70-105 (test gqlb=048) CALCIUM (BEAKER) (test 9.0 mg/dL 8.4-10.2 gzgv=525) EGFR (BEAKER) (test 132 mL/min/1.73 sq m ESTIMATED GFR IS NOT yuqc=3652) ACCURATE CREATININE CLEARANCE IN PREDICTING GLOMERULAR FILTRATION RATE. ESTIMATED GFR IS NOT APPLICABLE FOR DIALYSIS PATIENTS. BLOOD [id number] 08:01:00 Test Item Value Reference Range Comments CULTURE (BEAKER) (test eaci=2429) No growth in 5 days BLOOD [id number] 02:00:00 Test Item Value Reference Range Comments CULTURE (BEAKER) (test kbrz=8024) No growth in 5 days BLOOD [id number] 02:00:00 Test Item Value Reference Range Comments CULTURE (BEAKER) (test ghju=8584) No growth in 5 days CBC W/PLT COUNT & AUTO [id number] 15:32:00 Test Item Value Reference Range Comments WHITE BLOOD CELL COUNT (BEAKER) (test qckv=100) 6.4 K/ L 3.5-10.5 RED BLOOD CELL COUNT (BEAKER) (test fxxp=235) 4.16 M/ L 4.63-6.08 HEMOGLOBIN (BEAKER) (test shuq=263) 13.2 GM/DL 13.7-17.5 HEMATOCRIT (BEAKER) (test oash=726) 39.5 % 40.1-51.0 MEAN CORPUSCULAR VOLUME (BEAKER) (test rjwt=382) 95.0 fL 79.0-92.2 MEAN CORPUSCULAR HEMOGLOBIN (BEAKER) (test 31.7 pg 25.7-32.2 btse=012) MEAN CORPUSCULAR HEMOGLOBIN CONC (BEAKER) (test 33.4 GM/DL 32.3-36.5 utep=911) RED CELL DISTRIBUTION WIDTH (BEAKER) (test 15.7 % 11.6-14.4 lxov=698) PLATELET COUNT (BEAKER) (test zfpr=071) 148 K/CU MM 150-450 MEAN PLATELET VOLUME (BEAKER) (test tkmk=538) 10.7 fL 9.4-12.4 NUCLEATED RED BLOOD CELLS (BEAKER) (test 0 /100 WBC 0-0 vafh=276) (CELLAVISION MANUAL DIFF)2018-06-19 15:32:00 Test Item Value Reference Range Comments NEUTROPHILS - REL (CELLAVISION)(BEAKER) (test 73 % iqoy=9446) LYMPHOCYTES - REL (CELLAVISION)(BEAKER) (test 3 % jtgc=3759) MONOCYTES - REL (CELLAVISION)(BEAKER) (test 3 % zies=2335) METAMYELOCYTES - REL (CELLAVISION)(BEAKER) (test 2 % 0-0 rdcu=4187) MYELOCYTES - REL (CELLAVISION)(BEAKER) (test 1 % 0-0 epje=0111) BANDS - REL (CELLAVISION)(BEAKER) (test 16 % 0-10 dsdi=1016) NEUTROPHILS - ABS (CELLAVISION)(BEAKER) (test 4.67 K/ul 1.78-5.38 htmb=9153) LYMPHOCYTES - ABS (CELLAVISION)(BEAKER) (test 0.19 K/ul 1.32-3.57 epcm=7314) MONOCYTES - ABS (CELLAVISION)(BEAKER) (test 0.19 K/uL 0.30-0.82 sgio=5466) METAMYELOCYTES - ABS (CELLAVISION)(BEAKER) (test 0.13 K/uL 0.00-0.00 tipn=9025) MYELOCYTES-ABS (CELLAVISION)(BEAKER) (test 0.06 K/uL 0.00-0.00 eukk=8425) BANDS - ABS (CELLAVISION)(BEAKER) (test 1.02 K/uL 0.00-0.80 ywpd=8219) TOTAL COUNTED (BEAKER) (test foow=9217) 100 GIANT PLATELETS (BEAKER) (test nrfv=887) Present TOXIC GRANULATION (BEAKER) (test vuxl=556) Present PLASMACYTOID LYMPHS(BEAKER) (test qinr=2856) Present POLYCHROMATOPHILLIC RBCS(BEAKER) (test kerg=338) 1+ few ANISOCYTOSIS (BEAKER) (test ggts=751) 2+ moderate MICROCYTES (BEAKER) (test vhmk=307) 2+ moderate POIKILOCYTES (BEAKER) (test mxqw=375) 1+ few SPHEROCYTES (BEAKER) (test ebtq=343) 1+ few ARTIFACT (CELLAVISION)(BEAKER) (test ufmc=3070) Present HELMET CELLS (CELLAVISION)(BEAKER) (test 1+ few gdrp=3857) PLATELET CONCENTRATION (CELLAVISION)(BEAKER) Decreased (test qonf=8002) Received comment: User comments: Slide comments:BASIC METABOLIC [id number] 07:38:00 Test Item Value Reference Range Comments SODIUM (BEAKER) (test 132 meq/L 136-145 hkfi=752) POTASSIUM (BEAKER) (test 3.5 meq/L 3.5-5.1 idjp=208) CHLORIDE (BEAKER) (test 95 meq/L 98-107 mxds=211) CO2 (BEAKER) (test 27 meq/L 22-29 yxwe=917) BLOOD UREA NITROGEN 11 mg/dL 7-21 (BEAKER) (test pvxi=937) CREATININE (BEAKER) (test 0.61 mg/dL 0.57-1.25 fupm=487) GLUCOSE RANDOM (BEAKER) 94 mg/dL 70-105 (test uzfj=135) CALCIUM (BEAKER) (test 8.8 mg/dL 8.4-10.2 ddkc=754) EGFR (BEAKER) (test 142 mL/min/1.73 sq m ESTIMATED GFR IS NOT wfvp=6024) ACCURATE CREATININE CLEARANCE IN PREDICTING GLOMERULAR FILTRATION RATE. ESTIMATED GFR IS NOT APPLICABLE FOR DIALYSIS PATIENTS. CBC W/PLT COUNT & AUTO [id number] 12:37:00 Test Item Value Reference Range Comments WHITE BLOOD CELL COUNT (BEAKER) (test hbym=021) 8.5 K/ L 3.5-10.5 RED BLOOD CELL COUNT (BEAKER) (test jcnv=202) 4.16 M/ L 4.63-6.08 HEMOGLOBIN (BEAKER) (test oacs=511) 13.0 GM/DL 13.7-17.5 HEMATOCRIT (BEAKER) (test dzgt=951) 38.5 % 40.1-51.0 MEAN CORPUSCULAR VOLUME (BEAKER) (test vwrp=805) 92.5 fL 79.0-92.2 MEAN CORPUSCULAR HEMOGLOBIN (BEAKER) (test 31.3 pg 25.7-32.2 grxh=855) MEAN CORPUSCULAR HEMOGLOBIN CONC (BEAKER) (test 33.8 GM/DL 32.3-36.5 sscn=073) RED CELL DISTRIBUTION WIDTH (BEAKER) (test 15.2 % 11.6-14.4 bvue=549) PLATELET COUNT (BEAKER) (test xfam=590) 145 K/CU MM 150-450 MEAN PLATELET VOLUME (BEAKER) (test fmwn=584) 10.3 fL 9.4-12.4 NUCLEATED RED BLOOD CELLS (BEAKER) (test 0 /100 WBC 0-0 yyhk=297) (CELLAVISION MANUAL DIFF)2018-06-18 12:37:00 Test Item Value Reference Range Comments NEUTROPHILS - REL (CELLAVISION)(BEAKER) (test 72 % cuir=1980) LYMPHOCYTES - REL (CELLAVISION)(BEAKER) (test 2 % evgq=8366) BANDS - REL (CELLAVISION)(BEAKER) (test bxdp=1919) 25 % 0-10 ATYPICAL LYMPHOCYTES - REL (CELLAVISION)(BEAKER) 1 % 0-0 (test rrsl=3950) NEUTROPHILS - ABS (CELLAVISION)(BEAKER) (test 6.12 K/ul 1.78-5.38 qoel=8027) LYMPHOCYTES - ABS (CELLAVISION)(BEAKER) (test 0.17 K/ul 1.32-3.57 xjws=4307) BANDS - ABS (CELLAVISION)(BEAKER) (test avxh=7590) 2.13 K/uL 0.00-0.80 ATYPICAL LYMPHOCYTES - ABS (CELLAVISION)(BEAKER) 0.09 K/uL 0.00-0.00 (test oafk=6342) TOTAL COUNTED (BEAKER) (test oeov=1891) 100 RBC MORPHOLOGY (BEAKER) (test mxgv=784) Normal SMUDGE CELLS (BEAKER) (test aljg=5032) Present GIANT PLATELETS (BEAKER) (test zvbf=459) Present TOXIC GRANULATION (BEAKER) (test qinx=385) Present PLATELET CONCENTRATION (CELLAVISION)(BEAKER) (test Decreased jsbq=8119) Received comment: User comments: Slide comments:BASIC METABOLIC [id number] 12:04:00 Test Item Value Reference Range Comments SODIUM (BEAKER) (test 130 meq/L 136-145 qxyc=082) POTASSIUM (BEAKER) (test 3.1 meq/L 3.5-5.1 pkdq=582) CHLORIDE (BEAKER) (test 93 meq/L 98-107 vmae=001) CO2 (BEAKER) (test 27 meq/L 22-29 lbha=990) BLOOD UREA NITROGEN < mg/dL 7-21 (BEAKER) (test hdao=152) CREATININE (BEAKER) (test 0.66 mg/dL 0.57-1.25 srim=641) GLUCOSE RANDOM (BEAKER) 157 mg/dL 70-105 (test fgym=611) CALCIUM (BEAKER) (test 8.6 mg/dL 8.4-10.2 esis=406) EGFR (BEAKER) (test 129 mL/min/1.73 sq m ESTIMATED GFR IS NOT cuzv=9882) ACCURATE CREATININE CLEARANCE IN PREDICTING GLOMERULAR FILTRATION RATE. ESTIMATED GFR IS NOT APPLICABLE FOR DIALYSIS PATIENTS. VANCOMYCIN LEVEL, [id number] 12:02:00 Test Item Value Reference Range Comments VANCOMYCIN RANDOM (BEAKER) (test avub=665) 1.3 ug/mL Reference Range: No [id number] 12:00:00 Test Item Value Reference Range Comments MAGNESIUM (BEAKER) (test xohf=004) 2.2 mg/dL 1.6-2.6 SPUTUM CULTURE + GRAM [id number] 11:45:00 Test Item Value Reference Range Comments CULTURE (BEAKER) (test PSEUDOMONAS AERUGINOSA 4+ Pseudomonas xwkz=5747) aeruginosa Amikacin (test code=1) Susceptible 0-16 , [...] CULTURE (BEAKER) (test PSEUDOMONAS AERUGINOSA 4+ Pseudomonas edrz=9186) aeruginosa Amikacin (test code=1) Susceptible 0-16 , [...] GRAM STAIN RESULT 1+ WBCs (BEAKER) (test drar=3236) GRAM STAIN RESULT 15-20 epithelial cells (BEAKER) (test itfx=515227) GRAM STAIN RESULT <1+ gram negative (BEAKER) (test coccobacilli rzxf=952627) GRAM STAIN RESULT <1+ gram positive (BEAKER) (test cocci in pairs eqtk=322694) GRAM STAIN RESULT <1+ yeast with (BEAKER) (test pseudohyphae kkxd=053255) GRAM STAIN RESULT 1+ gram variable rods (BEAKER) (test yadd=761379) 1+ Normal respiratory maximo presentC W/PLT COUNT & AUTO [id number] 18:36:00 Test Item Value Reference Range Comments WHITE BLOOD CELL COUNT (BEAKER) (test iuzu=061) 7.3 K/ L 3.5-10.5 RED BLOOD CELL COUNT (BEAKER) (test wqns=225) 4.53 M/ L 4.63-6.08 HEMOGLOBIN (BEAKER) (test hyfp=511) 14.4 GM/DL 13.7-17.5 HEMATOCRIT (BEAKER) (test atod=814) 42.2 % 40.1-51.0 MEAN CORPUSCULAR VOLUME (BEAKER) (test umbx=699) 93.2 fL 79.0-92.2 MEAN CORPUSCULAR HEMOGLOBIN (BEAKER) (test 31.8 pg 25.7-32.2 youg=522) MEAN CORPUSCULAR HEMOGLOBIN CONC (BEAKER) (test 34.1 GM/DL 32.3-36.5 cvgm=602) RED CELL DISTRIBUTION WIDTH (BEAKER) (test 15.0 % 11.6-14.4 eoez=141) PLATELET COUNT (BEAKER) (test rlkx=891) 170 K/CU MM 150-450 MEAN PLATELET VOLUME (BEAKER) (test igus=568) 10.1 fL 9.4-12.4 NUCLEATED RED BLOOD CELLS (BEAKER) (test 0 /100 WBC 0-0 wmlw=374) NEUTROPHILS RELATIVE PERCENT (BEAKER) (test 92 % lfoz=641) LYMPHOCYTES RELATIVE PERCENT (BEAKER) (test 4 % egdl=600) MONOCYTES RELATIVE PERCENT (BEAKER) (test 2 % mlwx=419) EOSINOPHILS RELATIVE PERCENT (BEAKER) (test 0 % vlvo=641) BASOPHILS RELATIVE PERCENT (BEAKER) (test 0 % lzoa=772) NEUTROPHILS ABSOLUTE COUNT (BEAKER) (test 6.75 K/ L 1.78-5.38 obum=706) LYMPHOCYTES ABSOLUTE COUNT (BEAKER) (test 0.27 K/ L 1.32-3.57 kmcm=567) MONOCYTES ABSOLUTE COUNT (BEAKER) (test 0.15 K/ L 0.30-0.82 rjgj=952) EOSINOPHILS ABSOLUTE COUNT (BEAKER) (test 0.00 K/ L 0.04-0.54 nqom=640) BASOPHILS ABSOLUTE COUNT (BEAKER) (test 0.02 K/ L 0.01-0.08 tcbl=713) IMMATURE GRANULOCYTES-RELATIVE PERCENT (BEAKER) 2 % 0-1 (test elcr=2996) [id number] 14:37:00 Test Item Value Reference Range Comments PROCALCITONIN (BEAKER) (test ouki=3662) 0.08 ng/mL <0.05 SEPSIS RISK (ng/mL)Low: 0.05-0.50Intermediate: 0.51-2.00High: & gt;=2.01LACTIC ACID, [id number] 13:43:00 Test Item Value Reference Range Comments LACTATE BLOOD VENOUS (2) 2.4 mmol/L 0.5-2.2 Specimen slightly hemolyzed (BEAKER) (test ctof=9450) TISSUE [id number] 13:24:00Surgical Pathology Report Case: [id number] Authorizing Provider: Jennifer Fraire MD Collected: 06/09/2018 1735 Ordering Location: [address] Received: 06/10/2018 0811 Cardiovascular Pathologist: Jennifer Hull MD Specimen: SoftTissue, Other, LEFT SUPRAGLOTTIC MASS LEFT SUPRAGLOTTIC MASS, LARYNGOSCOPIC BIOPSY: - ATYPICAL SQUAMOUS PROLIFERATION (SEE COMMENT) Signing Pathologist Direct Phone Line: [phone] These are superficial fragments with hyperplasia, keratosis and dysplasia. Note is made of thehistory of chemoradiation. Ulceration, inflammation, atypical stromal cells and necrosis seen, may be due to the effect of chemoradiation. Immunohistochemical studies for AE1/AE3 and p53 confirm that the atypical cells in the stroma are likely reactive stromal cells. No invasive carcinoma is seen. Thebiopsy may not be compliance representative dealer of the entirelesion; Clinical correlation is recommended.00903; 00819; 59831Rnmbwklby mass Left subglottic massThe specimen is received in a fluidless container labeled with patient information and labeled "left supraglottic mass" consisting of four fragments of red soft tissue ranging from 0.1 to 0.4 cm, submitted entirely A1. CG/pl PERFORMEDThe interpretation of this case included the use of immunohistochemistry or special stains. p53 and AE1/NR1Pxaxzjrryjqsspotgjce technical testing was performed at [facility], Pathology Laboratory where it was developed [...] ESOPH, SWALLOW FUNCTION , WITH CINE OR [id number] 12:08:00Reason for exam:->silent aspiration evaluationFINAL REPORT Modified [...] MDReport Verified Date/Time: 06/17/2018 12:08:38 Reading Location: [address] Consult Reading Room [id number] 09:44:00 Test Item Value Reference Range Comments MAGNESIUM (BEAKER) (test vbte=991) 1.9 mg/dL 1.6-2.6 [id number] 09:44:00 Test Item Value Reference Range Comments PHOSPHORUS (BEAKER) (test usgk=270) 2.9 mg/dL 2.3-4.7 RAD, CHEST, 1 VIEW, NON [id number] 08:16:00Reason for exam:->SOBShould this be performed at [...] MDReport Verified Date/Time: 06/17/2018 08:16:46 Reading Location: [facility] Radiology Reading Room BASIC METABOLIC [id number] 06:25:00 Test Item Value Reference Range Comments SODIUM (BEAKER) (test 134 meq/L 136-145 bevv=874) POTASSIUM (BEAKER) (test 3.7 meq/L 3.5-5.1 dfcv=727) CHLORIDE (BEAKER) (test 95 meq/L 98-107 hmvr=162) CO2 (BEAKER) (test 31 meq/L 22-29 njpd=121) BLOOD UREA NITROGEN 15 mg/dL 7-21 (BEAKER) (test yymo=950) CREATININE (BEAKER) (test 0.77 mg/dL 0.57-1.25 yzao=732) GLUCOSE RANDOM (BEAKER) 89 mg/dL 70-105 (test jolv=618) CALCIUM (BEAKER) (test 8.9 mg/dL 8.4-10.2 zkoh=864) EGFR (BEAKER) (test 108 mL/min/1.73 sq m ESTIMATED GFR IS NOT vqph=1759) ACCURATE CREATININE CLEARANCE IN PREDICTING GLOMERULAR FILTRATION RATE. ESTIMATED GFR IS NOT APPLICABLE FOR DIALYSIS PATIENTS. VANCOMYCIN LEVEL, [id number] 06:25:00 Test Item Value Reference Range Comments VANCOMYCIN RANDOM (BEAKER) (test euoj=845) 9.6 ug/mL Reference Range: No NormalsDraw 30 min prior to scheduled dose, HOLD if level & gt; 20 mcg/mL, informMD.RESPIRATORY PANEL [id number] 12:23:00 Test Item Value Reference Range Comments HUMAN METAPNEUMOVIRUS Not detected Not detected, (BEAKER) (test ucfe=3376) Equivocal RHINOVIRUS (BEAKER) (test Not detected Not detected, yzao=0693) Equivocal INFLUENZA A (BEAKER) (test Not detected Not detected, shhf=8082) Equivocal INFLUENZA A (NO SUBTYPE) Not detected, (test pfnb=3489) Equivocal INFLUENZA A SUBTYPE H1 Not detected, (BEAKER) (test daxb=6899) Equivocal INFLUENZA A SUBTYPE H3 Not detected, (BEAKER) (test cizf=5664) Equivocal INFLUENZA A SUBTYPE H1-2009 Not detected, (BEAKER) (test ydvr=5879) Equivocal INFLUENZA B (BEAKER) (test Not detected Not detected, jyyj=5665) Equivocal RESPIRATORY SYNCYTIAL VIRUS Not detected Not detected, (BEAKER) (test xahj=3039) Equivocal PARAINFLUENZA VIRUS 1 Not detected Not detected, (BEAKER) (test wvgk=6601) Equivocal PARAINFLUENZA VIRUS 2 Not detected Not detected, (BEAKER) (test rltt=0954) Equivocal PARAINFLUENZA VIRUS 3 Not detected Not detected, (BEAKER) (test ommw=3264) Equivocal PARAINFLUENZA VIRUS 4 Not detected Not detected, (BEAKER) (test auhi=6831) Equivocal ADENOVIRUS (BEAKER) (test Not detected Not detected, cfiv=6079) Equivocal CORONAVIRUS 229E (BEAKER) Detected Not detected, Droplet isolation. (test eoag=6555) Equivocal Consider stopping antibiotics. CORONAVIRUS HKU1 (BEAKER) Not detected Not detected, (test yelr=6030) Equivocal CORONAVIRUS NL63 (BEAKER) Not detected Not detected, (test zxwl=0304) Equivocal CORONAVIRUS OC43 (BEAKER) Not detected Not detected, (test hdxv=8628) Equivocal BORDETELLA PERTUSSIS (BEAKER) Not detected Not detected, (test cdbl=6079) Equivocal CHLAMYDOPHILA PNEUMONIAE Not detected Not detected, (BEAKER) (test ccuk=7787) Equivocal MYCOPLASMA PNEUMONIAE Not detected Not detected, (BEAKER) (test fjuo=4805) Equivocal Other viruses and bacteria not targeted by this PCR panel cannot be excluded; therefore clinical correlation and follow up of serology, culture results, and other molecular studies is required. The results are not intended to be used as the sole means for clinical diagnosis or patient management decisions. This sample was tested at the [facility] Molecular Diagnostics Laboratory using the CertificationPointArray Respiratory Panel. It is FDA cleared and has been verified and approved by the [facility] for clinical use on nasal swab specimens. It is not FDA-cleared for use on bronchial wash/lavage samples. However, for this sample type, validation was performed and test characteristics were determined and approved, by [facility] for clinical use under the Clinical Laboratory Improvement Amendments (CLIA) of 1988 requirements. Therefore, FDA clearance isnot required. This laboratory is CLIA-certified and [employer] (CAP)-accredited to perform high complexity testing.CBC W/PLT COUNT & AUTO [id number] 11:27:00 Test Item Value Reference Range Comments WHITE BLOOD CELL COUNT (BEAKER) (test xzqc=161) 10.5 K/ L 3.5-10.5 RED BLOOD CELL COUNT (BEAKER) (test hbxy=293) 4.20 M/ L 4.63-6.08 HEMOGLOBIN (BEAKER) (test gzod=939) 13.6 GM/DL 13.7-17.5 HEMATOCRIT (BEAKER) (test dlzl=042) 40.5 % 40.1-51.0 MEAN CORPUSCULAR VOLUME (BEAKER) (test tmgg=283) 96.4 fL 79.0-92.2 MEAN CORPUSCULAR HEMOGLOBIN (BEAKER) (test 32.4 pg 25.7-32.2 dckh=514) MEAN CORPUSCULAR HEMOGLOBIN CONC (BEAKER) (test 33.6 GM/DL 32.3-36.5 mqxa=282) RED CELL DISTRIBUTION WIDTH (BEAKER) (test 15.1 % 11.6-14.4 lsvq=737) PLATELET COUNT (BEAKER) (test sspx=183) 142 K/CU MM 150-450 MEAN PLATELET VOLUME (BEAKER) (test asxi=311) 10.3 fL 9.4-12.4 NUCLEATED RED BLOOD CELLS (BEAKER) (test 0 /100 WBC 0-0 brpq=136) (CELLAVISION MANUAL DIFF)2018-06-16 11:27:00 Test Item Value Reference Range Comments NEUTROPHILS - REL (CELLAVISION)(BEAKER) (test 51 % axav=5622) LYMPHOCYTES - REL (CELLAVISION)(BEAKER) (test 1 % qplq=5388) MONOCYTES - REL (CELLAVISION)(BEAKER) (test 2 % aajj=2982) MYELOCYTES - REL (CELLAVISION)(BEAKER) (test 1 % 0-0 jaqz=0617) PROMYELOCYTES - REL (CELLAVSION)(BEAKER) (test 1 % 0-0 ldfg=8581) BANDS - REL (CELLAVISION)(BEAKER) (test 44 % 0-10 igoh=8615) NEUTROPHILS - ABS (CELLAVISION)(BEAKER) (test 5.36 K/ul 1.78-5.38 jewc=0251) LYMPHOCYTES - ABS (CELLAVISION)(BEAKER) (test 0.11 K/ul 1.32-3.57 ucse=5752) MONOCYTES - ABS (CELLAVISION)(BEAKER) (test 0.21 K/uL 0.30-0.82 affa=9110) MYELOCYTES-ABS (CELLAVISION)(BEAKER) (test 0.11 K/uL 0.00-0.00 xzdj=3083) PROMYELOCYTES - ABS (CELLAVISION)(BEAKER) (test 0.11 K/uL 0.00-0.00 dkyc=4983) BANDS - ABS (CELLAVISION)(BEAKER) (test 4.62 K/uL 0.00-0.80 janw=4265) TOTAL COUNTED (BEAKER) (test sbbd=7675) 100 MANUAL NRBC PER 100 CELLS (BEAKER) (test 1 /100 WBC 0-0 qwom=6687) SMUDGE CELLS (BEAKER) (test bznp=9425) Present GIANT PLATELETS (BEAKER) (test gihz=801) Present POLYCHROMATOPHILLIC RBCS(BEAKER) (test atcm=770) 1+ few ANISOCYTOSIS (BEAKER) (test dzkt=211) 1+ few MICROCYTES (BEAKER) (test qgea=842) 1+ few POIKILOCYTES (BEAKER) (test yjop=767) 1+ few ARTIFACT (CELLAVISION)(BEAKER) (test ukaw=4936) Present PLATELET CONCENTRATION (CELLAVISION)(BEAKER) Adequate (test pffz=3233) Received comment: User comments: Slide comments:CT, CHEST WITH IV CONTRAST- PE TEST [id number] 09:53:00Worsening hypoxia s/o diagnosis and excision of [...] MDReport Verified Date/Time: 06/16/2018 09:53:01 Reading Location: [facility] Diagnostic Imaging Reading Room - [place] [address] RAD, CHEST, 1 VIEW, NON [id number] 07:36:00Reason for exam:->recent pneumothorax, new trachShould [...] MDReport Verified Date/Time: 06/16/2018 07:36:27 Reading Location: [facility] Radiology Reading Room 07: 36 AMBASIC METABOLIC [id number] 05:45:00 Test Item Value Reference Range Comments SODIUM (BEAKER) (test 132 meq/L 136-145 kcli=979) POTASSIUM (BEAKER) (test 3.9 meq/L 3.5-5.1 yjdy=717) CHLORIDE (BEAKER) (test 92 meq/L 98-107 qwcf=103) CO2 (BEAKER) (test 27 meq/L 22-29 vmna=451) BLOOD UREA NITROGEN 13 mg/dL 7-21 (BEAKER) (test bmwv=662) CREATININE (BEAKER) (test 0.83 mg/dL 0.57-1.25 myfa=761) GLUCOSE RANDOM (BEAKER) 129 mg/dL 70-105 (test mddj=420) CALCIUM (BEAKER) (test 9.5 mg/dL 8.4-10.2 gqlq=117) EGFR (BEAKER) (test 99 mL/min/1.73 sq m ESTIMATED GFR IS NOT jkgb=7511) ACCURATE CREATININE CLEARANCE IN PREDICTING GLOMERULAR FILTRATION RATE. ESTIMATED GFR IS NOT APPLICABLE FOR DIALYSIS PATIENTS. [id number] 18:12:00 Test Item Value Reference Range Comments MAGNESIUM (BEAKER) (test 2.0 mg/dL 1.6-2.6 Specimen slightly hemolyzed rhdt=714) BASIC METABOLIC [id number] 18:12:00 Test Item Value Reference Range Comments SODIUM (BEAKER) (test 130 meq/L 136-145 sfpd=359) POTASSIUM (BEAKER) (test 3.7 meq/L 3.5-5.1 Specimen slightly kods=402) hemolyzed CHLORIDE (BEAKER) (test 91 meq/L 98-107 dcah=886) CO2 (BEAKER) (test 27 meq/L 22-29 kjgr=814) BLOOD UREA NITROGEN 14 mg/dL 7-21 (BEAKER) (test niiw=574) CREATININE (BEAKER) (test 0.78 mg/dL 0.57-1.25 Specimen slightly nymv=147) hemolyzed GLUCOSE RANDOM (BEAKER) 85 mg/dL 70-105 (test iiii=998) CALCIUM (BEAKER) (test 8.9 mg/dL 8.4-10.2 fbeq=839) EGFR (BEAKER) (test 107 mL/min/1.73 sq m ESTIMATED GFR IS NOT xgvw=6735) ACCURATE CREATININE CLEARANCE IN PREDICTING GLOMERULAR FILTRATION RATE. ESTIMATED GFR IS NOT APPLICABLE FOR DIALYSIS PATIENTS. RAD, CHEST, 1 VIEW, NON [id number] 13:18:00Reason for exam:->recent pneumothorax, new trachShould this [...] Additional findings: None. Signed: JR Humberto, Jimmie [facility] Verified Date/Time: 06/15/2018 13:18:45 Reading Location: [address] Neuro Reading Room BLOOD GAS, [id number] 11:41:00 Test Item Value Reference Range Comments PH ARTERIAL (BEAKER) (test wvby=300) 7.50 7.35-7.45 PCO2 ARTERIAL (BEAKER) (test djay=830) 40 mmHg 35-45 PO2 ARTERIAL (BEAKER) (test zcfi=230) 335 mmHg 80-90 O2 SATURATION ARTERIAL (BEAKER) (test vpgb=220) 99.8 % 96.0-97.0 HCO3 ARTERIAL (BEAKER) (test rqyj=619) 29 mmol/L 21-29 BASE EXCESS ARTERIAL (BEAKER) (test bcrc=979) 6.5 mmol/L -2.0-3.0 PATIENT TEMPERATURE (BEAKER) (test lsvw=0257) 39.3 C FIO2 (BEAKER) (test juhq=7820) 100.0 % Obtain one hour post initaition of vent support \\[id number] 09: 49:00 Test Item Value Reference Range Comments TROPONIN I (BEAKER) (test fcgg=958) < ng/mL 0.00-0.03 Troponin I (TnI) levels [...] Range Comments B-TYPE NATRIURETIC PEPTIDE (BEAKER) (test vjvx=450) 66 pg/mL 0-100 [id number] 09:29:00 Test Item Value Reference Range Comments D-DIMER QUANTITATIVE (BEAKER) (test fjhs=176) 1.59 MG/L FEU <0.50 Intended Use: The D-Dimer Assay can be used to aid in the diagnosis of Deep Vein Thrombosis (DVT) and Pulmonary Embolism Disease (PED).In patients with low pre-test probability, various studies concerning STA Liatest D-dimer test have reported that with a cutoff value of 0.50 MG/L FEU, the Negative Predictive Value (NPV) regarding the exclusion of thrombosis is within 95-100% range.[id number] 09:12:00 Test Item Value Reference Range Comments FIBRINOGEN LEVEL (BEAKER) (test otyl=433) 621 mg/dl 225-434 [id number] 09:10:00 Test Item Value Reference Range Comments PHOSPHORUS (BEAKER) (test pbvb=957) 2.8 mg/dL 2.3-4.7 [id number] 09:10:00 Test Item Value Reference Range Comments MAGNESIUM (BEAKER) (test xexd=225) 1.9 mg/dL 1.6-2.6 COMPREHENSIVE METABOLIC [id number] 09:10:00 Test Item Value Reference Range Comments TOTAL PROTEIN (BEAKER) 5.9 gm/dL 6.0-8.3 (test ewmw=807) ALBUMIN (BEAKER) (test 3.3 g/dL 3.5-5.0 rqts=2356) ALKALINE PHOSPHATASE 73 U/L 40-150 (BEAKER) (test rikb=116) BILIRUBIN TOTAL (BEAKER) 1.3 mg/dL 0.2-1.2 (test baey=650) SODIUM (BEAKER) (test 127 meq/L 136-145 rrgm=465) POTASSIUM (BEAKER) (test 3.8 meq/L 3.5-5.1 pqmf=530) CHLORIDE (BEAKER) (test 89 meq/L 98-107 mmjh=125) CO2 (BEAKER) (test 28 meq/L 22-29 ufwk=025) BLOOD UREA NITROGEN 14 mg/dL 7-21 (BEAKER) (test sepz=013) CREATININE (BEAKER) (test 0.78 mg/dL 0.57-1.25 hocy=250) GLUCOSE RANDOM (BEAKER) 87 mg/dL 70-105 (test epra=431) CALCIUM (BEAKER) (test 8.8 mg/dL 8.4-10.2 dtph=792) AST (SGOT) (BEAKER) (test 23 U/L 5-34 bark=347) ALT (SGPT) (BEAKER) (test 26 U/L 6-55 qspg=186) EGFR (BEAKER) (test 107 mL/min/1.73 sq ESTIMATED GFR IS NOT lwdj=2737) m ACCURATE CREATININE CLEARANCE IN PREDICTING GLOMERULAR FILTRATION RATE. ESTIMATED GFR IS NOT APPLICABLE FOR DIALYSIS PATIENTS. [id number] 09:01:00 Test Item Value Reference Range Comments PROTIME (BEAKER) (test wscx=474) 15.2 seconds 11.7-14.7 INR (BEAKER) (test kzct=726) 1.2 <=5.9 PARTIAL THROMBOPLASTIN TIME (BEAKER) (test 31.6 seconds 22.5-36.0 kiaq=628) RECOMMENDED COUMADIN/WARFARIN INR THERAPY RANGESSTANDARD DOSE: 2.0 - 3.0 Includes: PROPHYLAXIS forvenous thrombosis, systemic embolization; TREATMENT for venous thrombosis and/or pulmonary embolus.HIGH RISK: Target INR is 2.5-3.5 for patients with mechanical heart valves.LACTIC ACID, [id number] 08:51: 00 Test Item Value Reference Range Comments LACTATE BLOOD ARTERIAL (2) 0.8 mmol/L 0.5-2.2 Specimen slightly hemolyzed (BEAKER) (test xila=9090) BLOOD GAS, [id number] 08:40:00 Test Item Value Reference Range Comments PH ARTERIAL (BEAKER) (test ycpg=122) 7.51 7.35-7.45 PCO2 ARTERIAL (BEAKER) (test icyb=527) 40 mmHg 35-45 PO2 ARTERIAL (BEAKER) (test eovd=812) 58 mmHg 80-90 O2 SATURATION ARTERIAL (BEAKER) (test cskd=694) 90.0 % 96.0-97.0 HCO3 ARTERIAL (BEAKER) (test yjqs=667) 31 mmol/L 21-29 BASE EXCESS ARTERIAL (BEAKER) (test ibbr=455) 8.3 mmol/L -2.0-3.0 PATIENT TEMPERATURE (BEAKER) (test fufn=0820) 39.1 C FIO2 (BEAKER) (test xofk=3652) 80.0 % [id number] 08:00:00 Test Item Value Reference Range Comments MAGNESIUM (BEAKER) (test ksmy=829) 1.8 mg/dL 1.6-2.6 Add onCBC W/PLT COUNT & AUTO [id number] 06:45:00 Test Item Value Reference Range Comments WHITE BLOOD CELL COUNT (BEAKER) (test aget=376) 10.2 K/ L 3.5-10.5 RED BLOOD CELL COUNT (BEAKER) (test rsba=253) 4.12 M/ L 4.63-6.08 HEMOGLOBIN (BEAKER) (test cuek=039) 13.2 GM/DL 13.7-17.5 HEMATOCRIT (BEAKER) (test yfjb=037) 40.8 % 40.1-51.0 MEAN CORPUSCULAR VOLUME (BEAKER) (test cctw=457) 99.0 fL 79.0-92.2 MEAN CORPUSCULAR HEMOGLOBIN (BEAKER) (test 32.0 pg 25.7-32.2 tdad=460) MEAN CORPUSCULAR HEMOGLOBIN CONC (BEAKER) (test 32.4 GM/DL 32.3-36.5 kgnc=135) RED CELL DISTRIBUTION WIDTH (BEAKER) (test 15.2 % 11.6-14.4 psdu=093) PLATELET COUNT (BEAKER) (test dfip=854) 146 K/CU MM 150-450 MEAN PLATELET VOLUME (BEAKER) (test dsaf=803) 9.9 fL 9.4-12.4 NUCLEATED RED BLOOD CELLS (BEAKER) (test 0 /100 WBC 0-0 fird=226) NEUTROPHILS RELATIVE PERCENT (BEAKER) (test 92 % sdnr=562) LYMPHOCYTES RELATIVE PERCENT (BEAKER) (test 3 % cwhf=369) MONOCYTES RELATIVE PERCENT (BEAKER) (test 2 % ehdi=984) EOSINOPHILS RELATIVE PERCENT (BEAKER) (test 0 % xmgo=416) BASOPHILS RELATIVE PERCENT (BEAKER) (test 0 % pfpo=351) NEUTROPHILS ABSOLUTE COUNT (BEAKER) (test 9.38 K/ L 1.78-5.38 nsfa=909) LYMPHOCYTES ABSOLUTE COUNT (BEAKER) (test 0.30 K/ L 1.32-3.57 jfbn=723) MONOCYTES ABSOLUTE COUNT (BEAKER) (test 0.23 K/ L 0.30-0.82 hstw=216) EOSINOPHILS ABSOLUTE COUNT (BEAKER) (test 0.00 K/ L 0.04-0.54 grdo=676) BASOPHILS ABSOLUTE COUNT (BEAKER) (test 0.03 K/ L 0.01-0.08 vsew=583) IMMATURE GRANULOCYTES-RELATIVE PERCENT (BEAKER) 3 % 0-1 (test lpam=3394) BASIC METABOLIC [id number] 06:35:00 Test Item Value Reference Range Comments SODIUM (BEAKER) (test 127 meq/L 136-145 ifsp=406) POTASSIUM (BEAKER) (test 3.8 meq/L 3.5-5.1 ogmf=486) CHLORIDE (BEAKER) (test 91 meq/L 98-107 sssj=492) CO2 (BEAKER) (test 27 meq/L 22-29 yszx=508) BLOOD UREA NITROGEN 12 mg/dL 7-21 (BEAKER) (test ctct=750) CREATININE (BEAKER) (test 0.75 mg/dL 0.57-1.25 axjb=954) GLUCOSE RANDOM (BEAKER) 88 mg/dL 70-105 (test odln=945) CALCIUM (BEAKER) (test 8.6 mg/dL 8.4-10.2 iref=719) EGFR (BEAKER) (test 112 mL/min/1.73 sq m ESTIMATED GFR IS NOT wrxk=5911) ACCURATE CREATININE CLEARANCE IN PREDICTING GLOMERULAR FILTRATION RATE. ESTIMATED GFR IS NOT APPLICABLE FOR DIALYSIS PATIENTS. RAD, CHEST, 1 VIEW, NON [id number] 05:10:00Reason for exam:->sob, tachypneaShould this be performed [...] [place] Verified Date/Time: 06/15/2018 05:10:33 Reading Location: [address] Reading Room POCT-LACTIC ACID, [id number] 04:30:00 Test Item Value Reference Range Comments POC-LACTIC ACID, VENOUS 1.1 mmol/L 0.9-1.7 TESTED AT [facility] [address] [facility] (BEAKER) (test hmvk=9697) [facility] [address] URINALYSIS W/ REFLEX URINE [id number] 20:03:00 Test Item Value Reference Range Comments COLOR (BEAKER) (test aczp=576) Light Yellow CLARITY (BEAKER) (test hqhh=103) Hazy SPECIFIC GRAVITY UA (BEAKER) (test yqza=506) 1.014 1.001-1.035 PH UA (BEAKER) (test obme=226) 7.5 5.0-8.0 PROTEIN UA (BEAKER) (test vtqw=868) Negative Negative GLUCOSE UA (BEAKER) (test jylp=014) Negative Negative KETONES UA (BEAKER) (test henv=827) Negative Negative BILIRUBIN UA (BEAKER) (test vszd=348) Negative Negative BLOOD UA (BEAKER) (test ktbk=106) Negative Negative NITRITE UA (BEAKER) (test zcuk=525) Negative Negative LEUKOCYTE ESTERASE UA (BEAKER) (test lobw=398) Negative Negative UROBILINOGEN UA (BEAKER) (test ssma=804) 0.2 mg/dL 0.2-1.0 RBC UA (BEAKER) (test kyie=367) 0 /HPF WBC UA (BEAKER) (test thxu=632) 0 /HPF BACTERIA (BEAKER) (test pguh=121) Few MUCUS (BEAKER) (test vxar=4569) Rare HYALINE CASTS (BEAKER) (test ftcu=118) 3 /LPF SOURCE(BEAKER) (test bdgx=2750) RAD, CHEST, 1 VIEW, NON [id number] 19:10:00Reason for exam:->SUSUPECTED INFECTIONShould this be performed [...] Verified Date/Time: 06/14/2018 19:10: 10 Reading Location: [address] Reading Room CBC W/PLT COUNT & AUTO [id number] 04:36:00 Test Item Value Reference Range Comments WHITE BLOOD CELL COUNT (BEAKER) (test kxat=494) 11.4 K/ L 3.5-10.5 RED BLOOD CELL COUNT (BEAKER) (test mtou=874) 4.37 M/ L 4.63-6.08 HEMOGLOBIN (BEAKER) (test wkcr=001) 14.1 GM/DL 13.7-17.5 HEMATOCRIT (BEAKER) (test xsun=038) 44.0 % 40.1-51.0 MEAN CORPUSCULAR VOLUME (BEAKER) (test karj=010) 100.7 fL 79.0-92.2 MEAN CORPUSCULAR HEMOGLOBIN (BEAKER) (test 32.3 pg 25.7-32.2 fatb=448) MEAN CORPUSCULAR HEMOGLOBIN CONC (BEAKER) (test 32.0 GM/DL 32.3-36.5 ykrq=508) RED CELL DISTRIBUTION WIDTH (BEAKER) (test 14.4 % 11.6-14.4 pute=322) PLATELET COUNT (BEAKER) (test fhwe=272) 188 K/CU MM 150-450 MEAN PLATELET VOLUME (BEAKER) (test buyu=292) 10.7 fL 9.4-12.4 NUCLEATED RED BLOOD CELLS (BEAKER) (test 0 /100 WBC 0-0 tbhl=300) NEUTROPHILS RELATIVE PERCENT (BEAKER) (test 95 % blec=957) LYMPHOCYTES RELATIVE PERCENT (BEAKER) (test 1 % ahjt=053) MONOCYTES RELATIVE PERCENT (BEAKER) (test 2 % utvj=553) EOSINOPHILS RELATIVE PERCENT (BEAKER) (test 0 % thli=511) BASOPHILS RELATIVE PERCENT (BEAKER) (test 0 % vqfh=289) NEUTROPHILS ABSOLUTE COUNT (BEAKER) (test 10.81 K/ L 1.78-5.38 htin=893) LYMPHOCYTES ABSOLUTE COUNT (BEAKER) (test 0.16 K/ L 1.32-3.57 znao=272) MONOCYTES ABSOLUTE COUNT (BEAKER) (test 0.26 K/ L 0.30-0.82 xwew=352) EOSINOPHILS ABSOLUTE COUNT (BEAKER) (test 0.00 K/ L 0.04-0.54 yncy=443) BASOPHILS ABSOLUTE COUNT (BEAKER) (test 0.03 K/ L 0.01-0.08 ddzv=497) IMMATURE GRANULOCYTES-RELATIVE PERCENT (BEAKER) 2 % 0-1 (test yeet=6228) RAD, CHEST, 1 VIEW, NON [id number] 04:13:00Reason for exam:->recent pneumothorax, new trachShould this [...] Verified Date/ Time: 06/14/2018 04:13:50 Reading Location: [address] Transitional Reading Room BLOOD GAS, [id number] 01:01:00 Test Item Value Reference Range Comments PH ARTERIAL (BEAKER) (test ejhm=317) 7.45 7.35-7.45 PCO2 ARTERIAL (BEAKER) (test juco=181) 41 mmHg 35-45 PO2 ARTERIAL (BEAKER) (test kpvn=975) 109 mmHg 80-90 O2 SATURATION ARTERIAL (BEAKER) (test qhvf=355) 98.2 % 96.0-97.0 HCO3 ARTERIAL (BEAKER) (test qyde=396) 28 mmol/L 21-29 BASE EXCESS ARTERIAL (BEAKER) (test jfch=234) 3.4 mmol/L -2.0-3.0 PATIENT TEMPERATURE (BEAKER) (test vyln=8490) 36.7 C FIO2 (BEAKER) (test eoht=1917) 40.0 % POCT-GLUCOSE [id number] 05:32:00 Test Item Value Reference Range Comments POC-GLUCOSE METER (BEAKER) 92 mg/dL 70-110 TESTED AT [address] (test fuig=5889) [facility] [address] RAD, CHEST, 1 VIEW, NON [id number] 05:03:00Reason for exam:->evaluate for pneumo r/t CTShould [...] Verified Date/ Time: 06/13/2018 05:03:31 Reading Location: [facility] Transitional Reading Room [id number] 04:22:00 Test Item Value Reference Range Comments PARTIAL THROMBOPLASTIN TIME (BEAKER) (test 27.4 seconds 22.5-36.0 msge=842) PROTHROMBIN TIME/[id number] 04:21:00 Test Item Value Reference Range Comments PROTIME (BEAKER) (test odpc=453) 13.8 seconds 11.7-14.7 INR (BEAKER) (test qlpi=727) 1.1 <=5.9 RECOMMENDED COUMADIN/WARFARIN INR THERAPY RANGESSTANDARD DOSE: 2.0 - 3.0 Includes: PROPHYLAXIS forvenous thrombosis, systemic embolization; TREATMENT for venous thrombosis and/or pulmonary embolus.HIGH RISK: Target INR is 2.5-3.5 for patients with mechanical heart valves.[id number] 04:20:00 Test Item Value Reference Range Comments PHOSPHORUS (BEAKER) (test lyyu=501) 3.1 mg/dL 2.3-4.7 [id number] 04:20:00 Test Item Value Reference Range Comments MAGNESIUM (BEAKER) (test ehvy=643) 2.0 mg/dL 1.6-2.6 BASIC METABOLIC [id number] 04:20:00 Test Item Value Reference Range Comments SODIUM (BEAKER) (test 140 meq/L 136-145 icvt=808) POTASSIUM (BEAKER) (test 3.7 meq/L 3.5-5.1 izid=982) CHLORIDE (BEAKER) (test 101 meq/L 98-107 mrek=195) CO2 (BEAKER) (test 30 meq/L 22-29 zgzf=318) BLOOD UREA NITROGEN 13 mg/dL 7-21 (BEAKER) (test zabl=792) CREATININE (BEAKER) (test 0.74 mg/dL 0.57-1.25 jgec=426) GLUCOSE RANDOM (BEAKER) 97 mg/dL 70-105 (test rnkk=245) CALCIUM (BEAKER) (test 9.2 mg/dL 8.4-10.2 qcot=125) EGFR (BEAKER) (test 113 mL/min/1.73 sq m ESTIMATED GFR IS NOT nmou=6401) ACCURATE CREATININE CLEARANCE IN PREDICTING GLOMERULAR FILTRATION RATE. ESTIMATED GFR IS NOT APPLICABLE FOR DIALYSIS PATIENTS. CBC W/PLT COUNT & AUTO [id number] 04:14:00 Test Item Value Reference Range Comments WHITE BLOOD CELL COUNT (BEAKER) (test uhgf=867) 11.6 K/ L 3.5-10.5 RED BLOOD CELL COUNT (BEAKER) (test kfjb=990) 4.30 M/ L 4.63-6.08 HEMOGLOBIN (BEAKER) (test cqbn=102) 13.9 GM/DL 13.7-17.5 HEMATOCRIT (BEAKER) (test vcqd=019) 43.3 % 40.1-51.0 MEAN CORPUSCULAR VOLUME (BEAKER) (test vagw=418) 100.7 fL 79.0-92.2 MEAN CORPUSCULAR HEMOGLOBIN (BEAKER) (test 32.3 pg 25.7-32.2 qsoo=602) MEAN CORPUSCULAR HEMOGLOBIN CONC (BEAKER) (test 32.1 GM/DL 32.3-36.5 uhxy=808) RED CELL DISTRIBUTION WIDTH (BEAKER) (test 14.1 % 11.6-14.4 xanm=682) PLATELET COUNT (BEAKER) (test fvxn=815) 182 K/CU MM 150-450 MEAN PLATELET VOLUME (BEAKER) (test vfqe=284) 10.7 fL 9.4-12.4 NUCLEATED RED BLOOD CELLS (BEAKER) (test 0 /100 WBC 0-0 wvfq=418) NEUTROPHILS RELATIVE PERCENT (BEAKER) (test 89 % hind=051) LYMPHOCYTES RELATIVE PERCENT (BEAKER) (test 3 % post=427) MONOCYTES RELATIVE PERCENT (BEAKER) (test 6 % owdu=883) EOSINOPHILS RELATIVE PERCENT (BEAKER) (test 0 % ciiy=155) BASOPHILS RELATIVE PERCENT (BEAKER) (test 0 % kimn=560) NEUTROPHILS ABSOLUTE COUNT (BEAKER) (test 10.26 K/ L 1.78-5.38 udjy=493) LYMPHOCYTES ABSOLUTE COUNT (BEAKER) (test 0.39 K/ L 1.32-3.57 xwrn=390) MONOCYTES ABSOLUTE COUNT (BEAKER) (test 0.74 K/ L 0.30-0.82 mczk=295) EOSINOPHILS ABSOLUTE COUNT (BEAKER) (test 0.02 K/ L 0.04-0.54 koyj=091) BASOPHILS ABSOLUTE COUNT (BEAKER) (test 0.03 K/ L 0.01-0.08 gjtw=435) IMMATURE GRANULOCYTES-RELATIVE PERCENT (BEAKER) 1 % 0-1 (test unfb=2213) POCT-GLUCOSE [id number] 00:14:00 Test Item Value Reference Range Comments POC-GLUCOSE METER (BEAKER) 126 mg/dL 70-110 TESTED AT [address] (test zokd=0851) [facility] [address] RAD, CHEST, 1 VIEW, NON [id number] 12:29:00Reason for exam:->s/p[ L thoracocentesisFINAL REPORT CLINICAL HISTORY: s/p[ L thoracocentesis TECHNIQUE: 1 view of the chest. COMPARISON: 06/12/2018 IMPRESSION: A tracheostomy tube is again seen. There is no pneumothorax. Bibasilar atelectasis is again noted. There is no significant appearing pleural fluid. The cardiomediastinal silhouette is magnified by technique. Signed: Jacqueline Hilliard MDReport Verified Date/Time:06/12/2018 12:29:27 Reading Location: [facility] Consult Reading Room POCT-GLUCOSE [id number] 12:10:00 Test Item Value Reference Range Comments POC-GLUCOSE METER (BEAKER) 194 mg/dL 70-110 TESTED AT [address] (test sagx=9122) [place] [address] CT, CHEST, WITH [id number] 10:26:00Premedicated for contrast allergy. With general anesthesia [...] Man Verified Date/Time: 06/12/2018 10:26:26 Reading Location: [facility] Diagnostic Imaging Reading Room - [place] [address], SOFT TISSUE NECK, [id number] 09:53: 00Premedicated for contrast allergy. With gneral [...] MDRnicolasort Verified Date/Time: 06/12/2018 09:53:06 Reading Location: [facility] B1 C013V Neuro Reading Room [id number] 06:00:00 Test Item Value Reference Range Comments PHOSPHORUS (BEAKER) (test hxsf=713) 2.9 mg/dL 2.3-4.7 [id number] 06:00:00 Test Item Value Reference Range Comments MAGNESIUM (BEAKER) (test uqmt=398) 2.1 mg/dL 1.6-2.6 BASIC METABOLIC [id number] 06:00:00 Test Item Value Reference Range Comments SODIUM (BEAKER) (test 139 meq/L 136-145 fhrz=726) POTASSIUM (BEAKER) (test 3.9 meq/L 3.5-5.1 xcbr=241) CHLORIDE (BEAKER) (test 104 meq/L 98-107 ngbq=383) CO2 (BEAKER) (test 26 meq/L 22-29 msou=983) BLOOD UREA NITROGEN 13 mg/dL 7-21 (BEAKER) (test ccgf=073) CREATININE (BEAKER) (test 0.65 mg/dL 0.57-1.25 zoeu=216) GLUCOSE RANDOM (BEAKER) 109 mg/dL 70-105 (test yych=204) CALCIUM (BEAKER) (test 9.5 mg/dL 8.4-10.2 slrn=537) EGFR (BEAKER) (test 132 mL/min/1.73 sq m ESTIMATED GFR IS NOT jnhe=6260) ACCURATE CREATININE CLEARANCE IN PREDICTING GLOMERULAR FILTRATION RATE. ESTIMATED GFR IS NOT APPLICABLE FOR DIALYSIS PATIENTS. POCT-GLUCOSE [id number] 05:44:00 Test Item Value Reference Range Comments POC-GLUCOSE METER (BEAKER) 157 mg/dL 70-110 TESTED AT [facility] [address] [facility] (test mpsk=3584) [facility] [address] CBC W/PLT COUNT & AUTO [id number] 04:29:00 Test Item Value Reference Range Comments WHITE BLOOD CELL COUNT (BEAKER) (test wdox=138) 17.3 K/ L 3.5-10.5 RED BLOOD CELL COUNT (BEAKER) (test fmhc=828) 4.42 M/ L 4.63-6.08 HEMOGLOBIN (BEAKER) (test fdjq=442) 14.4 GM/DL 13.7-17.5 HEMATOCRIT (BEAKER) (test mksy=970) 43.7 % 40.1-51.0 MEAN CORPUSCULAR VOLUME (BEAKER) (test mvbj=319) 98.9 fL 79.0-92.2 MEAN CORPUSCULAR HEMOGLOBIN (BEAKER) (test 32.6 pg 25.7-32.2 wqpi=172) MEAN CORPUSCULAR HEMOGLOBIN CONC (BEAKER) (test 33.0 GM/DL 32.3-36.5 mozt=517) RED CELL DISTRIBUTION WIDTH (BEAKER) (test 14.2 % 11.6-14.4 dedf=158) PLATELET COUNT (BEAKER) (test kngq=743) 180 K/CU MM 150-450 MEAN PLATELET VOLUME (BEAKER) (test xdup=350) 10.9 fL 9.4-12.4 NUCLEATED RED BLOOD CELLS (BEAKER) (test 0 /100 WBC 0-0 knit=815) NEUTROPHILS RELATIVE PERCENT (BEAKER) (test 94 % vlvg=520) LYMPHOCYTES RELATIVE PERCENT (BEAKER) (test 2 % trne=478) MONOCYTES RELATIVE PERCENT (BEAKER) (test 3 % xiof=274) EOSINOPHILS RELATIVE PERCENT (BEAKER) (test 0 % dnue=658) BASOPHILS RELATIVE PERCENT (BEAKER) (test 0 % tgwg=907) NEUTROPHILS ABSOLUTE COUNT (BEAKER) (test 16.28 K/ L 1.78-5.38 znth=846) LYMPHOCYTES ABSOLUTE COUNT (BEAKER) (test 0.28 K/ L 1.32-3.57 qbqd=444) MONOCYTES ABSOLUTE COUNT (BEAKER) (test 0.55 K/ L 0.30-0.82 yncs=897) EOSINOPHILS ABSOLUTE COUNT (BEAKER) (test 0.00 K/ L 0.04-0.54 xsol=084) BASOPHILS ABSOLUTE COUNT (BEAKER) (test 0.02 K/ L 0.01-0.08 bjar=487) IMMATURE GRANULOCYTES-RELATIVE PERCENT (BEAKER) 1 % 0-1 (test vgvw=0190) RAD, CHEST, 1 VIEW, NON [id number] 04:26:00Reason for exam:->evaluate for pneumo r/t CTShould this be performed at the bedside?->YesFINAL REPORT CLINICAL INDICATION: Support lines. Comparison: 2018 The cardiomediastinal contours are stable. The lung volumes remain low. The lateral pulmonary opacities are similar to previous within variation of acquisition technique. There is no pneumothorax. A tracheostomy tube is stable. Signed: Jakob Garcia MDReport Verified Date/Time: 06/12/2018 04:26:44 Reading Location: [address] Reading Room Electronically signed by: JAKOB GARCIA M.D. on06/12/2018 04:26 [id number] 04:02:00 Test Item Value Reference Range Comments PARTIAL THROMBOPLASTIN TIME (BEAKER) (test 29.1 seconds 22.5-36.0 jxvw=028) PROTHROMBIN TIME/[id number] 04:01:00 Test Item Value Reference Range Comments PROTIME (BEAKER) (test hvtf=876) 13.4 seconds 11.7-14.7 INR (BEAKER) (test eyxo=948) 1.0 <=5.9 RECOMMENDED COUMADIN/WARFARIN INR THERAPY RANGESSTANDARD DOSE: 2.0 - 3.0 Includes: PROPHYLAXIS forvenous thrombosis, systemic embolization; TREATMENT for venous thrombosis and/or pulmonary embolus.HIGH RISK: Target INR is 2.5-3.5 for patients with mechanical heart valves.POCT-GLUCOSE [id number] 00:10:00 Test Item Value Reference Range Comments POC-GLUCOSE METER (BEAKER) 225 mg/dL 70-110 TESTED AT [facility] [address] [facility] (test nzbn=3607) [facility] [address] POCT-GLUCOSE [id number] 06:14:00 Test Item Value Reference Range Comments POC-GLUCOSE METER (BEAKER) 129 mg/dL 70-110 TESTED AT [facility] [address] [facility] (test dsmj=9439) [facility] [address] TSH/FREE T4 IF [id number] 04:46:00 Test Item Value Reference Range Comments THYROID STIMULATING HORMONE (BEAKER) (test 0.87 uIU/mL 0.35-4.94 xmqd=638) CBC W/PLT COUNT & AUTO [id number] 04:30:00 Test Item Value Reference Range Comments WHITE BLOOD CELL COUNT (BEAKER) (test eums=940) 16.2 K/ L 3.5-10.5 RED BLOOD CELL COUNT (BEAKER) (test uned=061) 4.01 M/ L 4.63-6.08 HEMOGLOBIN (BEAKER) (test dclw=258) 12.9 GM/DL 13.7-17.5 HEMATOCRIT (BEAKER) (test pckz=782) 41.0 % 40.1-51.0 MEAN CORPUSCULAR VOLUME (BEAKER) (test yqvm=153) 102.2 fL 79.0-92.2 MEAN CORPUSCULAR HEMOGLOBIN (BEAKER) (test 32.2 pg 25.7-32.2 wfpt=106) MEAN CORPUSCULAR HEMOGLOBIN CONC (BEAKER) (test 31.5 GM/DL 32.3-36.5 xque=569) RED CELL DISTRIBUTION WIDTH (BEAKER) (test 14.5 % 11.6-14.4 eguh=459) PLATELET COUNT (BEAKER) (test jaxe=917) 176 K/CU MM 150-450 MEAN PLATELET VOLUME (BEAKER) (test ciqp=943) 10.9 fL 9.4-12.4 NUCLEATED RED BLOOD CELLS (BEAKER) (test 0 /100 WBC 0-0 kpnl=366) NEUTROPHILS RELATIVE PERCENT (BEAKER) (test 93 % usdk=451) LYMPHOCYTES RELATIVE PERCENT (BEAKER) (test 2 % uzic=384) MONOCYTES RELATIVE PERCENT (BEAKER) (test 4 % itgo=062) EOSINOPHILS RELATIVE PERCENT (BEAKER) (test 0 % suqg=860) BASOPHILS RELATIVE PERCENT (BEAKER) (test 0 % xvii=201) NEUTROPHILS ABSOLUTE COUNT (BEAKER) (test 15.09 K/ L 1.78-5.38 olzn=204) LYMPHOCYTES ABSOLUTE COUNT (BEAKER) (test 0.28 K/ L 1.32-3.57 yuro=101) MONOCYTES ABSOLUTE COUNT (BEAKER) (test 0.60 K/ L 0.30-0.82 bemu=699) EOSINOPHILS ABSOLUTE COUNT (BEAKER) (test 0.00 K/ L 0.04-0.54 tnyc=274) BASOPHILS ABSOLUTE COUNT (BEAKER) (test 0.02 K/ L 0.01-0.08 zxgx=632) IMMATURE GRANULOCYTES-RELATIVE PERCENT (BEAKER) 1 % 0-1 (test bhfh=0322) [id number] 04:26:00 Test Item Value Reference Range Comments PREALBUMIN (BEAKER) (test bdoh=850) 25 mg/dL 14-45 [id number] 04:24:00 Test Item Value Reference Range Comments PHOSPHORUS (BEAKER) (test floe=628) 3.5 mg/dL 2.3-4.7 [id number] 04:24:00 Test Item Value Reference Range Comments MAGNESIUM (BEAKER) (test sedw=817) 2.0 mg/dL 1.6-2.6 BASIC METABOLIC [id number] 04:24:00 Test Item Value Reference Range Comments SODIUM (BEAKER) (test 140 meq/L 136-145 kegk=608) POTASSIUM (BEAKER) (test 3.9 meq/L 3.5-5.1 jjqn=810) CHLORIDE (BEAKER) (test 105 meq/L 98-107 mzii=231) CO2 (BEAKER) (test 26 meq/L 22-29 kadv=684) BLOOD UREA NITROGEN 11 mg/dL 7-21 (BEAKER) (test dqxe=029) CREATININE (BEAKER) (test 0.67 mg/dL 0.57-1.25 ngmt=283) GLUCOSE RANDOM (BEAKER) 129 mg/dL 70-105 (test wouc=244) CALCIUM (BEAKER) (test 9.2 mg/dL 8.4-10.2 hxrq=535) EGFR (BEAKER) (test 127 mL/min/1.73 sq m ESTIMATED GFR IS NOT scxw=5340) ACCURATE CREATININE CLEARANCE IN PREDICTING GLOMERULAR FILTRATION RATE. ESTIMATED GFR IS NOT APPLICABLE FOR DIALYSIS PATIENTS. PROTHROMBIN TIME/[id number] 04:19:00 Test Item Value Reference Range Comments PROTIME (BEAKER) (test jzwu=602) 14.5 seconds 11.7-14.7 INR (BEAKER) (test akhn=376) 1.1 <=5.9 RECOMMENDED COUMADIN/WARFARIN INR THERAPY RANGESSTANDARD DOSE: 2.0 - 3.0 Includes: PROPHYLAXIS forvenous thrombosis, systemic embolization; TREATMENT for venous thrombosis and/or pulmonary embolus.HIGH RISK: Target INR is 2.5-3.5 for patients with mechanical heart valves.[id number] 04:19:00 Test Item Value Reference Range Comments PARTIAL THROMBOPLASTIN TIME (BEAKER) (test 29.7 seconds 22.5-36.0 xaow=961) POCT-GLUCOSE [id number] 01:04:00 Test Item Value Reference Range Comments POC-GLUCOSE METER (BEAKER) 128 mg/dL 70-110 TESTED AT [address] (test spjz=3222) [facility] [address] POCT-GLUCOSE [id number] 18:19:00 Test Item Value Reference Range Comments POC-GLUCOSE METER (BEAKER) 93 mg/dL 70-110 TESTED AT [address] (test qftb=8684) [facility] [address] POCT-GLUCOSE [id number] 11:44:00 Test Item Value Reference Range Comments POC-GLUCOSE METER (BEAKER) 87 mg/dL 70-110 TESTED AT [address] (test kcfb=8900) [facility] [address] POCT-GLUCOSE [id number] 06:13:00 Test Item Value Reference Range Comments POC-GLUCOSE METER (BEAKER) 158 mg/dL 70-110 TESTED AT [address] (test dyhf=8908) [facility] [address] BLOOD GAS, [id number] 04:53:00 Test Item Value Reference Range Comments PH VENOUS (BEAKER) (test mpnc=229) 7.48 7.32-7.42 PCO2 VENOUS (BEAKER) (test yywu=139) 37 mmHg 41-51 PO2 VENOUS (BEAKER) (test uqvr=129) 94 mmHg 25-40 O2 SATURATION VENOUS (BEAKER) (test fngz=678) 97.7 % 40.0-70.0 HCO3 VENOUS (BEAKER) (test ddda=365) 27 mmol/L 21-29 BASE EXCESS VENOUS (BEAKER) (test wyua=144) 3.7 mmol/L -2.0-3.0 PATIENT TEMPERATURE (BEAKER) (test cxnm=8389) 37.0 C RAD, CHEST, 1 VIEW, NON [id number] 04:42:00Reason for exam:->s/p tracheostomyShould this be performed [...] Carrillo Verified Date/Time: 06/10/2018 04:42:37 Reading Location: [address] Reading Room [id number] 04:29:00 Test Item Value Reference Range Comments MAGNESIUM (BEAKER) (test 2.2 mg/dL 1.6-2.6 Specimen slightly hemolyzed ytbt=190) [id number] 04:29:00 Test Item Value Reference Range Comments PHOSPHORUS (BEAKER) (test 3.7 mg/dL 2.3-4.7 Specimen slightly hemolyzed ezas=106) BASIC METABOLIC [id number] 04:29:00 Test Item Value Reference Range Comments SODIUM (BEAKER) (test 139 meq/L 136-145 tixi=375) POTASSIUM (BEAKER) (test 4.0 meq/L 3.5-5.1 Specimen slightly ezvg=205) hemolyzed CHLORIDE (BEAKER) (test 105 meq/L 98-107 kxdr=007) CO2 (BEAKER) (test 24 meq/L 22-29 urbq=471) BLOOD UREA NITROGEN 11 mg/dL 7-21 (BEAKER) (test tgbq=172) CREATININE (BEAKER) (test 0.70 mg/dL 0.57-1.25 Specimen slightly qbqy=993) hemolyzed GLUCOSE RANDOM (BEAKER) 159 mg/dL 70-105 (test sffy=496) CALCIUM (BEAKER) (test 9.4 mg/dL 8.4-10.2 advc=195) EGFR (BEAKER) (test 121 mL/min/1.73 sq m ESTIMATED GFR IS NOT xfiu=0937) ACCURATE CREATININE CLEARANCE IN PREDICTING GLOMERULAR FILTRATION RATE. ESTIMATED GFR IS NOT APPLICABLE FOR DIALYSIS PATIENTS. [id number] 04:18:00 Test Item Value Reference Range Comments PARTIAL THROMBOPLASTIN TIME (BEAKER) (test 24.5 seconds 22.5-36.0 fnpl=995) PROTHROMBIN TIME/[id number] 04:17:00 Test Item Value Reference Range Comments PROTIME (BEAKER) (test qrrj=502) 13.7 seconds 11.7-14.7 INR (BEAKER) (test ksip=756) 1.0 <=5.9 RECOMMENDED COUMADIN/WARFARIN INR THERAPY RANGESSTANDARD DOSE: 2.0 - 3.0 Includes: PROPHYLAXIS forvenous thrombosis, systemic embolization; TREATMENT for venous thrombosis and/or pulmonary embolus.HIGH RISK: Target INR is 2.5-3.5 for patients with mechanical heart valves.CBC W/PLT COUNT & AUTO [id number] 04:06:00 Test Item Value Reference Range Comments WHITE BLOOD CELL COUNT (BEAKER) (test pjiy=424) 17.9 K/ L 3.5-10.5 RED BLOOD CELL COUNT (BEAKER) (test uooa=080) 4.34 M/ L 4.63-6.08 HEMOGLOBIN (BEAKER) (test hcqr=509) 13.7 GM/DL 13.7-17.5 HEMATOCRIT (BEAKER) (test nrmh=279) 42.8 % 40.1-51.0 MEAN CORPUSCULAR VOLUME (BEAKER) (test qjru=699) 98.6 fL 79.0-92.2 MEAN CORPUSCULAR HEMOGLOBIN (BEAKER) (test 31.6 pg 25.7-32.2 xuxp=240) MEAN CORPUSCULAR HEMOGLOBIN CONC (BEAKER) (test 32.0 GM/DL 32.3-36.5 krfy=981) RED CELL DISTRIBUTION WIDTH (BEAKER) (test 14.4 % 11.6-14.4 wtvm=372) PLATELET COUNT (BEAKER) (test urur=015) 194 K/CU MM 150-450 MEAN PLATELET VOLUME (BEAKER) (test mdcf=881) 10.5 fL 9.4-12.4 NUCLEATED RED BLOOD CELLS (BEAKER) (test 0 /100 WBC 0-0 ansv=386) NEUTROPHILS RELATIVE PERCENT (BEAKER) (test 92 % cceg=230) LYMPHOCYTES RELATIVE PERCENT (BEAKER) (test 2 % eobe=963) MONOCYTES RELATIVE PERCENT (BEAKER) (test 5 % dvan=499) EOSINOPHILS RELATIVE PERCENT (BEAKER) (test 0 % xfec=361) BASOPHILS RELATIVE PERCENT (BEAKER) (test 0 % uhld=835) NEUTROPHILS ABSOLUTE COUNT (BEAKER) (test 16.35 K/ L 1.78-5.38 xzuo=945) LYMPHOCYTES ABSOLUTE COUNT (BEAKER) (test 0.40 K/ L 1.32-3.57 groo=012) MONOCYTES ABSOLUTE COUNT (BEAKER) (test 0.86 K/ L 0.30-0.82 joys=924) EOSINOPHILS ABSOLUTE COUNT (BEAKER) (test 0.00 K/ L 0.04-0.54 ibsb=303) BASOPHILS ABSOLUTE COUNT (BEAKER) (test 0.03 K/ L 0.01-0.08 psfa=807) IMMATURE GRANULOCYTES-RELATIVE PERCENT (BEAKER) 1 % 0-1 (test atsy=5165) POCT-GLUCOSE [id number] 01:05:00 Test Item Value Reference Range Comments POC-GLUCOSE METER (BEAKER) 161 mg/dL 70-110 TESTED AT [address] (test qoxb=1848) [facility] [address] RAD, CHEST, 1 VIEW, NON [id number] 22:19:00Reason for exam:->Laryngeal massShould this be performed [...] Verified Date/Time: 06/09/2018 22:19:49 Reading Location: [address] Consult Reading Room 10: 19 PMRAD, CHEST, 1 VIEW, NON [id number] 20:37:00Reason for exam:-> Laryngeal massShould this be [...] MDReport Verified Date/Time: 01/2019 20:37:30 Reading Location: [address] Reading Room RAD, CHEST, 1 VIEW, NON [id number] 20:18:00Reason for exam:->Post-opShould this be performed at [...] MDReport Verified Date/Time: 06/09/2018 20:18:45 Reading Location: [address] Reading Room CBC W/PLT COUNT & AUTO [id number] 19:32:00 Test Item Value Reference Range Comments WHITE BLOOD CELL COUNT (BEAKER) (test igmz=900) 22.9 K/ L 3.5-10.5 RED BLOOD CELL COUNT (BEAKER) (test momf=061) 4.82 M/ L 4.63-6.08 HEMOGLOBIN (BEAKER) (test abix=846) 15.5 GM/DL 13.7-17.5 HEMATOCRIT (BEAKER) (test aykb=142) 48.5 % 40.1-51.0 MEAN CORPUSCULAR VOLUME (BEAKER) (test zhep=676) 100.6 fL 79.0-92.2 MEAN CORPUSCULAR HEMOGLOBIN (BEAKER) (test 32.2 pg 25.7-32.2 dcdl=254) MEAN CORPUSCULAR HEMOGLOBIN CONC (BEAKER) (test 32.0 GM/DL 32.3-36.5 rrcs=958) RED CELL DISTRIBUTION WIDTH (BEAKER) (test 14.5 % 11.6-14.4 ovag=819) PLATELET COUNT (BEAKER) (test seit=320) 201 K/CU MM 150-450 MEAN PLATELET VOLUME (BEAKER) (test dhfk=743) 10.1 fL 9.4-12.4 NUCLEATED RED BLOOD CELLS (BEAKER) (test 0 /100 WBC 0-0 stry=947) (CELLAVISION MANUAL DIFF)2018-06-09 19:32:00 Test Item Value Reference Range Comments NEUTROPHILS - REL (CELLAVISION)(BEAKER) (test 94 % wbng=1052) MONOCYTES - REL (CELLAVISION)(BEAKER) (test 4 % zvxx=6487) BANDS - REL (CELLAVISION)(BEAKER) (test 1 % 0-10 lmbg=5945) NEUTROPHILS - ABS (CELLAVISION)(BEAKER) (test 21.53 K/ul 1.78-5.38 ohoh=3119) MONOCYTES - ABS (CELLAVISION)(BEAKER) (test 0.92 K/uL 0.30-0.82 dcng=6405) BANDS - ABS (CELLAVISION)(BEAKER) (test 0.23 K/uL 0.00-0.80 rspm=8903) TOTAL COUNTED (BEAKER) (test dbhe=6758) 100 RBC MORPHOLOGY (BEAKER) (test brxo=933) Normal PLT MORPHOLOGY (BEAKER) (test ufvb=182) Normal HYPERSEGMENTATION (CELLAVISION)(BEAKER) (test Present zspz=2279) ARTIFACT (CELLAVISION)(BEAKER) (test fbxq=8988) Present PLATELET CONCENTRATION (CELLAVISION)(BEAKER) Adequate (test eprf=3838) Received comment: User comments: Slide comments:[id number] 19:25:00 Test Item Value Reference Range Comments PHOSPHORUS (BEAKER) (test sexg=055) 4.7 mg/dL 2.3-4.7 [id number] 19:25:00 Test Item Value Reference Range Comments MAGNESIUM (BEAKER) (test tuco=793) 2.2 mg/dL 1.6-2.6 BASIC METABOLIC [id number] 19:25:00 Test Item Value Reference Range Comments SODIUM (BEAKER) (test 139 meq/L 136-145 cwha=703) POTASSIUM (BEAKER) (test 3.9 meq/L 3.5-5.1 abab=176) CHLORIDE (BEAKER) (test 103 meq/L 98-107 evfc=685) CO2 (BEAKER) (test 27 meq/L 22-29 djfe=830) BLOOD UREA NITROGEN 15 mg/dL 7-21 (BEAKER) (test vixd=863) CREATININE (BEAKER) (test 0.81 mg/dL 0.57-1.25 ihjv=687) GLUCOSE RANDOM (BEAKER) 139 mg/dL 70-105 (test lfvh=901) CALCIUM (BEAKER) (test 9.3 mg/dL 8.4-10.2 lfxo=064) EGFR (BEAKER) (test 102 mL/min/1.73 sq m ESTIMATED GFR IS NOT tqro=1404) ACCURATE CREATININE CLEARANCE IN PREDICTING GLOMERULAR FILTRATION RATE. ESTIMATED GFR IS NOT APPLICABLE FOR DIALYSIS PATIENTS. PROTHROMBIN TIME/[id number] 19:18:00 Test Item Value Reference Range Comments PROTIME (BEAKER) (test ivkl=567) 13.0 seconds 11.7-14.7 INR (BEAKER) (test ioal=406) 1.0 <=5.9 RECOMMENDED COUMADIN/WARFARIN INR THERAPY RANGESSTANDARD DOSE: 2.0 - 3.0 Includes: PROPHYLAXIS forvenous thrombosis, systemic embolization; TREATMENT for venous thrombosis and/or pulmonary embolus.HIGH RISK: Target INR is 2.5-3.5 for patients with mechanical heart valves.[id number] 19:18:00 Test Item Value Reference Range Comments PARTIAL THROMBOPLASTIN TIME (BEAKER) (test 24.0 seconds 22.5-36.0 uurf=596) [id number] 12:47:00 Test Item Value Reference Range Comments HEMOGLOBIN (BEAKER) (test morc=366) 15.7 GM/DL 13.7-17.5 PLATELET [id number] 12:47:00 Test Item Value Reference Range Comments PLATELET COUNT (BEAKER) (test sctk=408) 203 K/CU MM 150-450
[2019-03-09] MEDS ORDERED: METHYLPREDNISOLONE 125 MG INJ ONE (12:02)
[2019-03-09] MEDS ORDERED: IPRATROPIUM BROM 0.5MG/2.5ML ONE (12:02)
[2019-03-09] MEDS ORDERED: NA CHLORIDE 0.9% 1,000 ML ONE (12:02)
[2019-03-09] MEDS ORDERED: ALBUTEROL 2.5 MG/3 ML NEB SOL ONE (12:02)
[2019-03-09] MEDS ORDERED: CEFEPIME/SWI 2gm 2 GM/20 ML SYR IV ONE (12:45)
[2019-03-09] MEDS ORDERED: VANCOMYCIN/NS 1 gm 1 GM/250 ML BAG IV ONE (12:45)
[2019-03-09 12:56] LABS: Absolute Lymphocytes (CBC) 0.8 K/uL (0.7-4.9); Basophils % 0.2 % (0-1.3); Lymphocytes % 8.3 % (15.3-44.8); MPV 7.9 fL (7.6-11.3); RBC Red Blood Cell Count 5.01 M/uL (4.33-5.43)
[2019-03-09] MEDS ORDERED: FENTANYL CITR 100 MCG/2 ML ONE (12:56)
[2019-03-09] MEDS ORDERED: ONDANSETRON 4 MG/2 ML VIAL ONE (12:56)
[2019-03-09 12:57] LABS: Protime INR 0.94
--- NOTE | 2019-03-09 12:59 | EKG ---
Test Date: 2019-03-09 Test Time: 12:04:27 [employer] Operator: RAEANN MEASUREMENT RESULTS: Intervals: Rate: 74 OH: 148 QRSD: 76 QT: 406 QTc: 450 [place]: P: 67 OH: 148 QRS: 50 T: 51 INTERPRETIVE STATEMENTS: Normal sinus rhythm Normal ECG Compared to ECG 07/04/2018 00:43:01 Sinus tachycardia no longer present Electronically Signed On 03-09-19 12:59:03 [employer] by Hema Rojas
[2019-03-09 13:17] LABS: ALT/SGPT 37 U/L (12-78); AST/SGOT 20 U/L (15-37); Albumin 3.6 g/dL (3.4-5.0); Alkaline Phosphatase 102 U/L (45-117); BUN Blood Urea Nitrogen 13 mg/dL (7-18); Bicarbonate 31 mmol/L (21-32); Bilirubin Direct 0.1 mg/dL (0-0.2); Bilirubin Total 0.6 mg/dL (0.2-1.0); Glucose Level 82 mg/dL (74-106); Magnesium 2.1 mg/dL (1.8-2.4); NT PRO-BNP 189 pg/mL (<125); Potassium 3.2 mmol/L (3.5-5.1); Protein, Total 6.7 g/dL (6.4-8.2); Sodium Level 140 mmol/L (136-145); Troponin (Emerg Dept Use Only) < 0.02 ng/mL (0.0-0.045)
[2019-03-09 13:31] LABS: Anisocytosis 1+; Blood Morphology Comment NOTED (NOT SEEN); Macrocytosis SLIGHT; Platelet Estimate ADEQ
--- NOTE | 2019-03-09 13:37 | RAD REPORT ---
EXAM DESCRIPTION: [place] Single View03/09/2019 1:28 pm CLINICAL HISTORY: Cough COMPARISON: January 2019 FINDINGS: The lungs appear clear of acute infiltrate. The heart is normal size IMPRESSION: No acute abnormalities displayed
[2019-03-09] MEDS ORDERED: dexAMETHasone 10 MG/ML VIAL ONE (13:57)
[2019-03-09] MEDS ORDERED: LEVALBUTEROL 1.25 MG/3 ML NEB ONE (13:58)
--- NOTE | 2019-03-09 15:17 | EDPHYS ---
Physician Documentation [facility] Name: Akin Pugh Age: 48 yrs Sex: Male : 1970 Arrival Date: 03/09/2019 Time: 11:05 Bed 27 Private MD: ALEJANDRA Physician Ren Bruner HPI: 03/09 11:54 This 48 yrs old Male presents to ER via Ambulatory with complaints of Neck kishan Swelling, Neck Pain, <24hrs Old. 11:54 The patient or guardian complains of pain, that is acute. The symptoms are located on kishan the chin, right jaw and left jaw. Onset: The symptoms/episode began/occurred 3 day(s) ago. Context: The problem was sustained at an unknown location, The neck injury/problem resulted from from unknown cause. Associated signs and symptoms: The patient has no apparent associated signs or symptoms. The pain does not radiate. The patient has experienced similar episodes in the past, several times. Historical: - Allergies: 11:13 Ampicillin; aj1 11:13 Iodinated Contrast Media - IV Dye; aj1 11:13 Iodine; aj1 11:13 Levaquin; aj1 - Home Meds: 11:13 escitalopram oxalate Oral [Active]; Levoxyl Oral [Active]; aj1 - PMHx: 11:13 Asthma; COPD; THROAT CA; aj1 - Immunization history:: Adult Immunizations up to date. - Social history:: Smoking status: Patient uses tobacco products, smokes one-half pack cigarettes per day. - Ebola Screening: : Patient denies travel to an Ebola-affected area in the 21 days before illness onset. ROS: 11:56 Constitutional: Negative for fever, chills, and weight loss, Eyes: Negative for injury, kishan pain, redness, and discharge, Neck: Negative for injury, pain, and swelling, Cardiovascular: Negative for chest pain, palpitations, and edema, Respiratory: Negative for shortness of breath, cough, wheezing, and pleuritic chest pain, Abdomen/GI: Negative for abdominal pain, nausea, vomiting, diarrhea, and constipation, Back: Negative for injury and pain, : Negative for injury, bleeding, discharge, and swelling, MS/Extremity: Negative for injury and deformity, Skin: Negative for injury, rash, and discoloration, Neuro: Negative for headache, weakness, numbness, tingling, and seizure, Psych: Negative for depression, anxiety, suicide ideation, homicidal ideation, and hallucinations, Allergy/Immunology: Negative for hives, rash, and allergies, Endocrine: Negative for neck swelling, polydipsia, polyuria, polyphagia, and marked weight changes. 11:56 ENT: Positive for difficulty swallowing. 11:56 Respiratory: Positive for cough, shortness of breath, wheezing, inspiratory, expiratory. Exam: 11:56 Constitutional: This is a well developed, well nourished patient who is awake, alert, kishan and in no acute distress. Head/Face: Normocephalic, atraumatic. Eyes: Pupils equal round and reactive to light, extra-ocular motions intact. Lids and lashes normal. Conjunctiva and sclera are non-icteric and not injected. Cornea within normal limits. Periorbital areas with no swelling, redness, or edema. Neck: Trachea midline, no thyromegaly or masses palpated, and no cervical lymphadenopathy. Supple, full range of motion without nuchal rigidity, or vertebral point tenderness. No Meningismus. Chest/axilla: Normal chest wall appearance and motion. Nontender with no deformity. No lesions are appreciated. Cardiovascular: Regular rate and rhythm with a normal S1 and S2. No gallops, murmurs, or rubs. Normal PMI, no JVD. No pulse deficits. Abdomen/GI: Soft, non-tender, with normal bowel sounds. No distension or tympany. No guarding or rebound. No evidence of tenderness throughout. Back: No spinal tenderness. No costovertebral tenderness. Full range of motion. Male : Normal genitalia with no discharge or lesions. Skin: Warm, dry with normal turgor. Normal color with no rashes, no lesions, and no evidence of cellulitis. MS/ Extremity: Pulses equal, no cyanosis. Neurovascular intact. Full, normal range of motion. Neuro: Awake and alert, GCS 15, oriented to person, place, time, and situation. Cranial nerves II-XII grossly intact. Motor strength 5/5 in all extremities. Sensory grossly intact. Cerebellar exam normal. Normal gait. Psych: Awake, alert, with orientation to person, place and time. Behavior, mood, and affect are within normal limits. 11:56 ENT: Mouth: Oral mucosa: normal, Gums: normal with healthy appearance, Tongue: is normal, Posterior pharynx: Tonsils: are normal in appearance, Uvula: normal, midline, non-edematous, no erythema, swelling, is not appreciated, laryngetomy. Vital Signs: 11:13 BP 144 / 99; Pulse 86; Resp 18; Temp 97.4; Pulse Ox 93% on R/A; aj1 12:00 BP 139 / 85; Pulse 96; Resp 16 S; Pulse Ox 98% on R/A; ca1 13:00 BP 120 / 82; Pulse 68; Resp 21 S; Pulse Ox 98% on R/A; ca1 14:00 BP 139 / 84; Pulse 88; Resp 19 S; Pulse Ox 96% on R/A; ca1 15:02 BP 122 / 82; Pulse 89; Resp 15; Pulse Ox 94% on R/A; ca1 15:46 BP 132 / 82; Pulse 86; Resp 19; Pulse Ox 96% on R/A; rv MDM: 11:16 Patient medically screened. [facility] 03/09 11:54 Order name: Basic Metabolic Panel; Complete Time: 13:41 [facility] 03/09 11:54 Order name: CBC with Diff; Complete Time: 13:41 [facility] 03/09 11:54 Order name: LFT's; Complete Time: 13:41 [facility] 03/09 11:54 Order name: Magnesium; Complete Time: 13:41 [facility] 03/09 11:54 Order name: NT PRO-BNP; Complete Time: 13:41 [facility] 03/09 11:54 Order name: PT-INR; Complete Time: 13:41 [facility] 03/09 11:54 Order name: Troponin (emerg Dept Use Only); Complete Time: 13:41 [facility] 03/09 11:54 Order name: XRAY Chest (1 view); Complete Time: 13:41 [facility] 03/09 11:54 Order name: Blood Culture Adult (2) [facility] 03/09 13:32 Order name: Manual Differential; Complete Time: 13:41 [facility] 03/09 11:54 Order name: EKG; Complete Time: 11:56 [facility] 03/09 11:54 Order name: Cardiac monitoring; Complete Time: 14:08 [facility] 03/09 11:54 Order name: EKG - Nurse/Tech; Complete Time: 14:08 [facility] 03/09 11:54 Order name: IV Saline Lock; Complete Time: 14:09 [facility] 03/09 11:54 Order name: Labs collected and sent; Complete Time: 14: [facility] 03/09 11:54 Order name: O2 Per Protocol; Complete Time: 14: [facility] 03/09 11:54 Order name: O2 Sat Monitoring; Complete Time: 14: [facility] Administered Medications: 12:05 Drug: Albuterol - atroVENT (3:1) (2.5 mg - 0.5 mg) 3 ml Route: Nebulizer; ca1 15:24 Follow up: Response: No adverse reaction ca1 12:22 Drug: NS 0.9% 1000 ml Route: IV; Rate: 1 bolus; Site: right forearm; ca1 12:23 Drug: SOLU-Medrol 125 mg Route: IVP; Site: right forearm; ca1 15:45 Follow up: Response: Marked relief of symptoms rv 12:52 Drug: Zofran 4 mg Route: IVP; Site: right forearm; ca1 15:25 Follow up: Response: No adverse reaction; Nausea is decreased ca1 12:55 Drug: fentaNYL (PF) 25 mcg {Note: RASS - 0.} Route: IVP; Site: right forearm; ca1 15:24 Follow up: Response: No adverse reaction; Pain is decreased; RASS: Alert and Calm (0) ca1 13:00 Drug: Cefepime 2 grams {Note: slow IVP per pharmacy protocol.} Route: IVPB; Rate: 200 ca1 ml/hr; Infused Over: 30 mins; Site: right forearm; 13:30 Follow up: Response: No adverse reaction; IV Status: Completed infusion ca1 13:10 Drug: vancoMYCIN 1 grams Route: IVPB; Infused Over: 2 hrs; Site: right forearm; ca1 15:45 Follow up: IV Status: Completed infusion; IV Intake: 250ml rv 14:00 Drug: Xopenex 1.25 mg Route: Inhalation; rv 15:44 Follow up: Response: No adverse reaction; Marked relief of symptoms rv 14:09 Drug: Decadron - Dexamethasone 10 mg Route: IVP; Site: right forearm; rv 15:25 Follow up: Response: No adverse reaction; Marked relief of symptoms ca1 15:44 Follow up: Response: Marked relief of symptoms rv 15:24 Drug: Bactrim (160 mg-800 mg (DS) 1 tablet Route: PO; ca1 15:44 Follow up: Response: No adverse reaction rv 15:43 Not Given (NOT INDICATED): fentaNYL (PF) 25 mcg IVP once; RASS on ADMIN: Combtv4, Very rv Agttd3, Agttd2, Rstlss1, AlertClm0, Drwsy-1, Lt Sdtn-2, Mod Sdtn-3, Dp Sdtn-4, UnArsble-5 15:43 Drug: fentaNYL Patch (50 mcg/hr) 1 patches Route: Transdermal; Site: anterior chest rv wall; 15:44 Follow up: Response: Medication administered at discharge.; RASS: Alert and Calm (0) rv Disposition: 03/09/19 15:16 Discharged to Home. Impression: Acute pharyngitis, Chronic obstructive pulmonary disease, unspecified. - Condition is Stable. - Discharge Instructions: Pharyngitis, Chronic Obstructive Pulmonary Disease Exacerbation, Pharyngitis, Nscu-se-Vhis, Sore Throat, [id number]-[id number]. - Prescriptions for Tylenol- Codeine #3 300-30 mg Oral Tablet - take 2 tablet by ORAL route every 6 hours As needed; 30 tablet. Albuterol Sulfate 2.5 mg /3 mL (0.083 %) Inhalation Solution for Nebulization - inhale 1 unit by NEBULIZATION route every 8 hours As needed; 1 box. Bactrim DS 800- 160 mg Oral Tablet - take 1 tablet by ORAL route every 12 hours for 10 days; 20 tablet. Prednisone 20 mg Oral Tablet - take 2 tablet by ORAL route once daily for 5 days; 10 tablet. Albuterol Sulfate 90 mcg/actuation - inhale 1-2 puff by INHALATION route every 4-6 hours; 1 Inhaler. - Medication Reconciliation Form, Thank You Letter, Antibiotic Education, Prescription Opioid Use form. - Follow up: Private Physician; When: 2 - 3 days; Reason: Recheck today's complaints, Continuance of care, Re-evaluation by your physician. Follow up: Keya Pardo MD; When: 2 - 3 days; Reason: Recheck today's complaints, Continuance of care, Re-evaluation by your physician. Follow up: Rafael Mejia MD; When: 2 - 3 days; Reason: Recheck today's complaints, Re-evaluation by your physician. - Problem is new. - Symptoms have improved. Signatures: Dispatcher [employer] EDTayler Cobb RN RN aj1 Ren Bruner MD MD cha Vicente, Ronaldo, RN RN rv Acob, Cheryl RN JEAN ca1 Corrections: (The following items were deleted from the chart) 15:47 15:16 03/09/2019 15:16 Discharged to Home. Impression: Acute pharyngitis; Chronic rv obstructive pulmonary disease, unspecified. Condition is Stable. Forms are Medication Reconciliation Form, Thank You Letter, Antibiotic Education, Prescription Opioid Use. Follow up: Private Physician; When: 2 - 3 days; Reason: Recheck today's complaints, Continuance of care, Re-evaluation by your physician. Follow up: Keya Pardo; When: 2 - 3 days; Reason: Recheck today's complaints, Continuance of care, Re-evaluation by your physician. Follow up: Rafael Mejia; When: 2 - 3 days; Reason: Recheck today's complaints, Re-evaluation by your physician. Problem is new. Symptoms have improved. kishan
--- NOTE | 2019-03-09 15:17 | ER ---
Nurse's Notes [facility] Name: Akin Pugh Age: 48 yrs Sex: Male : 1970 Arrival Date: 03/09/2019 Time: 11:05 Bed 27 Private MD: Diagnosis: Acute pharyngitis;Chronic obstructive pulmonary disease, unspecified Presentation: 03/09 11:11 Presenting complaint: Patient states: "I've got an infection in my neck I was just here aj1 on Saturday" States he was seen in this ER on Saturday and given antibiotics, but but its just gotten worse. Transition of care: patient was not received from another setting of care. Onset of symptoms was 2018. Risk Assessment: Do you want to hurt yourself or someone else? Patient reports no desire to harm self or others. Initial Sepsis Screen: Does the patient meet any 2 criteria? No. Patient's initial sepsis screen is negative. Does the patient have a suspected source of infection? No. Patient's initial sepsis screen is negative. Care prior to arrival: None. 11:11 Method Of Arrival: Ambulatory aj1 11:11 Acuity: PAO 3 aj1 Triage Assessment: 11:13 General: Appears in no apparent distress. uncomfortable, Behavior is calm, cooperative, aj1 appropriate for age. Pain: Complains of pain in neck. Neuro: Level of Consciousness is awake, alert, obeys commands. Cardiovascular: Patient's skin is warm and dry. Respiratory: Airway is patent Respiratory effort is even, unlabored, Respiratory pattern is regular, symmetrical. Historical: - Allergies: 11:13 Ampicillin; aj1 11:13 Iodinated Contrast Media - IV Dye; aj1 11:13 Iodine; aj1 11:13 Levaquin; aj1 - Home Meds: 11:13 escitalopram oxalate Oral [Active]; Levoxyl Oral [Active]; aj1 - PMHx: 11:13 Asthma; COPD; THROAT CA; aj1 - Immunization history:: Adult Immunizations up to date. - Social history:: Smoking status: Patient uses tobacco products, smokes one-half pack cigarettes per day. - Ebola Screening: : Patient denies travel to an Ebola-affected area in the 21 days before illness onset. Screenin:22 Abuse screen: Denies threats or abuse. Denies injuries from another. Nutritional ca1 screening: No deficits noted. Tuberculosis screening: No symptoms or risk factors identified. Fall Risk None identified. Assessment: 11:21 General: Appears in no apparent distress. comfortable, Behavior is calm, cooperative, ca1 appropriate for age. Pain:. 11:22 Neuro: Level of Consciousness is awake, alert, obeys commands, Oriented to person, ca1 place, time, situation, Appropriate for age. Cardiovascular: Heart tones S1 S2 present Capillary refill < 3 seconds Patient's skin is warm and dry. Respiratory: Airway is patent tracheostomy noted without an appliance in place. Respiratory effort is even, unlabored, Respiratory pattern is regular, symmetrical. Respiratory: Reports cough that is since 4 days ago Breath sounds are clear bilaterally. GI: Abdomen is round non-distended, Bowel sounds present X 4 quads. Abd is soft and non tender X 4 quads. : No deficits noted. No signs and/or symptoms were reported regarding the genitourinary system. EENT: Parent/caregiver reports the patient having nasal congestion. Derm: Skin is intact, is healthy with good turgor, Skin is pink, warm \\T\\ dry. Musculoskeletal: Circulation, motion, and sensation intact. Capillary refill < 3 seconds, Range of motion: intact in all extremities. 12:30 Reassessment: Patient appears in no apparent distress at this time. Patient is alert, ca1 oriented x 3, equal unlabored respirations, skin warm/dry/pink. 13:30 Reassessment: Patient appears in no apparent distress at this time. Patient is alert, ca1 oriented x 3, equal unlabored respirations, skin warm/dry/pink. 14:16 Reassessment: Patient appears in no apparent distress at this time. Patient is alert, ca1 oriented x 3, equal unlabored respirations, skin warm/dry/pink. 15:13 Reassessment: Patient appears in no apparent distress at this time. Patient is alert, ca1 oriented x 3, equal unlabored respirations, skin warm/dry/pink. Dr. Bruner at bedside. 15:25 Reassessment: Vanc still infusing. Will discharge once completed. ca1 Vital Signs: 11:13 BP 144 / 99; Pulse 86; Resp 18; Temp 97.4; Pulse Ox 93% on R/A; aj1 12:00 BP 139 / 85; Pulse 96; Resp 16 S; Pulse Ox 98% on R/A; ca1 13:00 BP 120 / 82; Pulse 68; Resp 21 S; Pulse Ox 98% on R/A; ca1 14:00 BP 139 / 84; Pulse 88; Resp 19 S; Pulse Ox 96% on R/A; ca1 15:02 BP 122 / 82; Pulse 89; Resp 15; Pulse Ox 94% on R/A; ca1 15:46 BP 132 / 82; Pulse 86; Resp 19; Pulse Ox 96% on R/A; rv ED Course: 11:05 Patient arrived in ED. as 11:13 Triage completed. aj1 11:13 Arm band placed on Patient placed in an exam room. aj1 11:16 Ren Bruner MD is Attending Physician. kishan 11:21 Sarah Dick, JEAN is Primary Nurse. ca1 11:22 Patient has correct armband on for positive identification. Bed in low position. Call ca1 light in reach. Side rails up X 1. Pulse ox on. NIBP on. Warm blanket given. 12:17 EKG done, by office systems technology instructor. reviewed by Ren Bruner MD. at1 12:22 Initial lab(s) drawn, by me, sent to lab. First set of blood cultures drawn. Inserted ca1 saline lock: 22 gauge in right forearm, using aseptic technique. Blood collected. 12:50 No provider procedures requiring assistance completed. Second set of blood cultures ca1 drawn by me. 13:30 XRAY Chest (1 view) In Process Unspecified. EDMS 15:15 Keya Pardo MD is Referral Physician. kishan 15:16 Rafael Mejia MD is Referral Physician. kishan 15:47 IV discontinued, intact, bleeding controlled, No redness/swelling at site. Pressure rv dressing applied. Administered Medications: 12:05 Drug: Albuterol - atroVENT (3:1) (2.5 mg - 0.5 mg) 3 ml Route: Nebulizer; ca1 15:24 Follow up: Response: No adverse reaction ca1 12:22 Drug: NS 0.9% 1000 ml Route: IV; Rate: 1 bolus; Site: right forearm; ca1 12:23 Drug: SOLU-Medrol 125 mg Route: IVP; Site: right forearm; ca1 15:45 Follow up: Response: Marked relief of symptoms rv 12:52 Drug: Zofran 4 mg Route: IVP; Site: right forearm; ca1 15:25 Follow up: Response: No adverse reaction; Nausea is decreased ca1 12:55 Drug: fentaNYL (PF) 25 mcg {Note: RASS - 0.} Route: IVP; Site: right forearm; ca1 15:24 Follow up: Response: No adverse reaction; Pain is decreased; RASS: Alert and Calm (0) ca1 13:00 Drug: Cefepime 2 grams {Note: slow IVP per pharmacy protocol.} Route: IVPB; Rate: 200 ca1 ml/hr; Infused Over: 30 mins; Site: right forearm; 13:30 Follow up: Response: No adverse reaction; IV Status: Completed infusion ca1 13:10 Drug: vancoMYCIN 1 grams Route: IVPB; Infused Over: 2 hrs; Site: right forearm; ca1 15:45 Follow up: IV Status: Completed infusion; IV Intake: 250ml rv 14:00 Drug: Xopenex 1.25 mg Route: Inhalation; rv 15:44 Follow up: Response: No adverse reaction; Marked relief of symptoms rv 14:09 Drug: Decadron - Dexamethasone 10 mg Route: IVP; Site: right forearm; rv 15:25 Follow up: Response: No adverse reaction; Marked relief of symptoms ca1 15:44 Follow up: Response: Marked relief of symptoms rv 15:24 Drug: Bactrim (160 mg-800 mg (DS) 1 tablet Route: PO; ca1 15:44 Follow up: Response: No adverse reaction rv 15:43 Not Given (NOT INDICATED): fentaNYL (PF) 25 mcg IVP once; RASS on ADMIN: Combtv4, Very rv Agttd3, Agttd2, Rstlss1, AlertClm0, Drwsy-1, Lt Sdtn-2, Mod Sdtn-3, Dp Sdtn-4, UnArsble-5 15:43 Drug: fentaNYL Patch (50 mcg/hr) 1 patches Route: Transdermal; Site: anterior chest rv wall; 15:44 Follow up: Response: Medication administered at discharge.; RASS: Alert and Calm (0) rv Intake: 15:45 IV: 250ml; Total: 250ml. rv Outcome: 15:16 Discharge ordered by . kishan 15:46 Discharged to home ambulatory. rv 15:46 Condition: improved 15:46 Discharge instructions given to patient, Instructed on discharge instructions, follow up and referral plans. medication usage, Demonstrated understanding of instructions, follow-up care, medications, Prescriptions given X 4. 15:47 Patient left the ED. rv Signatures: Dispatcher [employer] EDTayler Cobb, JEAN RN aj1 Ren Bruner MD MD cha Martinez, Amelia as Gonzales, Amanda, ad clerk EKG Tat1 Demian Cooper RN RN rv Sarah Dick RN RN ca1
[2019-03-09] MEDS ORDERED: SMZ./TMP. 800/160 MG TABLET ONE ×2 (15:22→15:38)
[2019-03-09] MEDS ORDERED: FENTANYL 50 MCG/PATCH TD ONE (15:37)
[2019-03-09 15:59] VITALS: TEMP 97.4
[2019-03-09 16:05] VITALS: BP 132/82; O2SAT 96
== END 2019-03-09 15:47 | disposition home or self-care (01) ==
LOC: ER 11:03
DX: J44.9 Chronic obstructive pulmonary disease, unspecified (principal); J02.9 Acute pharyngitis, unspecified; Z91.09 Other allergy status, other than to drugs and biological substances; Z88.1 Allergy status to other antibiotic agents; F17.210 Nicotine dependence, cigarettes, uncomplicated
CPT/HCPCS: 96365; 96368; 93005; 87040 ×2; 85025; 80048; 36415; 83735; 85610; 80076; 84484; 83880; 71045; 94640; 96375; 99285; 96366; J3010; J1100; J3370; J0692; J7030; J2930; J2405

== ENCOUNTER 2019-04-06 18:21 | Observation (INO) | payer MEDICAID ==
--- OUTSIDE RECORDS SUMMARY | 2019-04-06 18:23 | XMS REPORT ---
[...] End Status Dosage System Date Date Hydrocodone-Acet [facility] 00390097511 10-325 MG Active 1 tablet aminophen Orally every 6 as needed hrs Citalopram [facility] 03048928916 20 MG Orally Active 1 tablet Hydrobromide Once a day Xanax [facility] [address]-90 1 MG Orally Active 1 tablet Once a day Zofran [facility] [address]-54 8 MG Orally Active 1 tablet Twice a day PRN Results No Known Results Summary Purpose eClinicalWorks Submission
--- OUTSIDE RECORDS SUMMARY | 2019-04-06 18:24 | XMS REPORT ---
[...] HCl [facility] 66565989676 150 MG Orally Dec 16, Active 1 tablet ER (Smoking Once a day 2018 in the Det) morning Xanax [facility] 41029814254 1 MG Orally Once Active 1 tablet a day Zofran ND 24544535487 8 MG Orally Active 1 tablet Twice a day PRN Hydrocodone-Ac ND 68689186518 10-325 MG Orally Active 1 tablet etaminophen every 6 hrs as needed Results No Known Results Summary Purpose eClinicalWorks Submission
--- OUTSIDE RECORDS SUMMARY | 2019-04-06 18:24 | XMS REPORT ---
[...] Status Dosage System Date Date BuPROPion HCl [facility] 52202752169 150 MG Orally Dec 16, Active 1 tablet ER (Smoking Once a day 2018 in the Det) morning Xanax [facility] 49991323198 1 MG Orally Active 1 tablet Once a day Zofran ND 43465536725 8 MG Orally Active 1 tablet Twice a day PRN Hydrocodone-[place] ND 78341859354 10-325 MG Active 1 tablet taminophen Orally every 6 as needed hrs Citalopram ND 84039825536 20 MG Orally Inactive 1 tablet Hydrobromide Once a day Results No Known Results Summary Purpose eClinicalWorks Submission
--- OUTSIDE RECORDS SUMMARY | 2019-04-06 18:28 | XMS REPORT ---
:1970 [facility] Pasquale Topete [address] [place] [id number] Care Team Providers Name Role Phone JENNIFER [...] Comments CREATININE (BEAKER) (test 0.63 mg/dL 0.57-1.25 ybbs=659) EGFR (BEAKER) (test 136 mL/min/1.73 sq m ESTIMATED GFR IS NOT rmjl=0795) ACCURATE CREATININE CLEARANCE IN PREDICTING GLOMERULAR FILTRATION RATE. ESTIMATED GFR IS NOT APPLICABLE FOR DIALYSIS PATIENTS. WOUND CULTURE + GRAM [id number] 16:32:00 Test Item Value Reference Range Comments CULTURE (BEAKER) (test No growth xzae=5080) GRAM STAIN RESULT (BEAKER) 2+ WBCs (test itnj=0227) GRAM STAIN RESULT (BEAKER) 1+ gram positive cocci in (test dkxm=47527) pairs GRAM STAIN RESULT (BEAKER) <1+ gram variable rods (test qbvj=22348) VANCOMYCIN LEVEL, [id number] 23:37:00 Test Item Value Reference Range Comments VANCOMYCIN TROUGH (BEAKER) (test ofqm=499) 7.5 ug/mL 10.0-20.0 FL, ESOPH, SWALLOW FUNCTION, WITH CINE OR [id number] 18:19:00Cervical esophagram with GASTROGAFFINReason for exam:->status post [...] MDReport Verified Date/Time: 08/12/2018 18:19:29 Reading Location: [place] [id number] Ortho Consult Reading Room CBC W/PLT COUNT & AUTO [id number] 04: 39:00 Test Item Value Reference Range Comments WHITE BLOOD CELL COUNT (BEAKER) (test bmdv=723) 7.1 K/ L 3.5-10.5 RED BLOOD CELL COUNT (BEAKER) (test purq=840) 3.77 M/ L 4.63-6.08 HEMOGLOBIN (BEAKER) (test atcq=568) 10.9 GM/DL 13.7-17.5 HEMATOCRIT (BEAKER) (test rjbm=481) 35.7 % 40.1-51.0 MEAN CORPUSCULAR VOLUME (BEAKER) (test pxno=850) 94.7 fL 79.0-92.2 MEAN CORPUSCULAR HEMOGLOBIN (BEAKER) (test 28.9 pg 25.7-32.2 mxuj=228) MEAN CORPUSCULAR HEMOGLOBIN CONC (BEAKER) (test 30.5 GM/DL 32.3-36.5 zitw=591) RED CELL DISTRIBUTION WIDTH (BEAKER) (test 14.6 % 11.6-14.4 xduq=973) PLATELET COUNT (BEAKER) (test atzk=317) 318 K/CU MM 150-450 MEAN PLATELET VOLUME (BEAKER) (test gjgv=249) 9.8 fL 9.4-12.4 NUCLEATED RED BLOOD CELLS (BEAKER) (test 0 /100 WBC 0-0 mpya=479) NEUTROPHILS RELATIVE PERCENT (BEAKER) (test 72 % brys=345) LYMPHOCYTES RELATIVE PERCENT (BEAKER) (test 10 % blqp=044) MONOCYTES RELATIVE PERCENT (BEAKER) (test 12 % xdpv=067) EOSINOPHILS RELATIVE PERCENT (BEAKER) (test 4 % ubbp=156) BASOPHILS RELATIVE PERCENT (BEAKER) (test 1 % hhkh=548) NEUTROPHILS ABSOLUTE COUNT (BEAKER) (test 5.08 K/ L 1.78-5.38 obys=800) LYMPHOCYTES ABSOLUTE COUNT (BEAKER) (test 0.68 K/ L 1.32-3.57 jeny=815) MONOCYTES ABSOLUTE COUNT (BEAKER) (test 0.86 K/ L 0.30-0.82 naov=952) EOSINOPHILS ABSOLUTE COUNT (BEAKER) (test 0.29 K/ L 0.04-0.54 ulex=423) BASOPHILS ABSOLUTE COUNT (BEAKER) (test 0.04 K/ L 0.01-0.08 kbhj=267) IMMATURE GRANULOCYTES-RELATIVE PERCENT (BEAKER) 1 % 0-1 (test bmxm=6611) TSH/FREE T4 IF [id number] 18:11:00 Test Item Value Reference Range Comments THYROID STIMULATING HORMONE (BEAKER) (test 0.75 uIU/mL 0.35-4.94 iyit=963) CBC W/PLT COUNT & AUTO [id number] 17:31:00 Test Item Value Reference Range Comments WHITE BLOOD CELL COUNT (BEAKER) (test gsty=556) 9.2 K/ L 3.5-10.5 RED BLOOD CELL COUNT (BEAKER) (test vjtg=187) 3.78 M/ L 4.63-6.08 HEMOGLOBIN (BEAKER) (test pogw=986) 11.0 GM/DL 13.7-17.5 HEMATOCRIT (BEAKER) (test xixc=572) 35.4 % 40.1-51.0 MEAN CORPUSCULAR VOLUME (BEAKER) (test mwxg=938) 93.7 fL 79.0-92.2 MEAN CORPUSCULAR HEMOGLOBIN (BEAKER) (test 29.1 pg 25.7-32.2 lnxp=976) MEAN CORPUSCULAR HEMOGLOBIN CONC (BEAKER) (test 31.1 GM/DL 32.3-36.5 demh=935) RED CELL DISTRIBUTION WIDTH (BEAKER) (test 14.7 % 11.6-14.4 nelm=163) PLATELET COUNT (BEAKER) (test ozyg=029) 323 K/CU MM 150-450 MEAN PLATELET VOLUME (BEAKER) (test egco=711) 9.6 fL 9.4-12.4 NUCLEATED RED BLOOD CELLS (BEAKER) (test 0 /100 WBC 0-0 hekk=787) NEUTROPHILS RELATIVE PERCENT (BEAKER) (test 75 % hshp=370) LYMPHOCYTES RELATIVE PERCENT (BEAKER) (test 9 % cskk=018) MONOCYTES RELATIVE PERCENT (BEAKER) (test 12 % ocnl=377) EOSINOPHILS RELATIVE PERCENT (BEAKER) (test 3 % mnnp=254) BASOPHILS RELATIVE PERCENT (BEAKER) (test 0 % iuap=685) NEUTROPHILS ABSOLUTE COUNT (BEAKER) (test 6.86 K/ L 1.78-5.38 msma=215) LYMPHOCYTES ABSOLUTE COUNT (BEAKER) (test 0.81 K/ L 1.32-3.57 eipu=807) MONOCYTES ABSOLUTE COUNT (BEAKER) (test 1.13 K/ L 0.30-0.82 bqxy=412) EOSINOPHILS ABSOLUTE COUNT (BEAKER) (test 0.24 K/ L 0.04-0.54 aepp=127) BASOPHILS ABSOLUTE COUNT (BEAKER) (test 0.04 K/ L 0.01-0.08 lgmp=500) IMMATURE GRANULOCYTES-RELATIVE PERCENT (BEAKER) 1 % 0-1 (test phvl=7892) TISSUE [id number] 10:26:00Surgical Pathology Report Case: [id number] Authorizing Provider: Jennifer Fraire MD Collected: 07/14/2018 1023 Ordering Location: [facility] Received: 07/14/2018 1029 SERVICES Pathologist: Jackie [...] cannot be determined from the submitted specimen(s) 69987 X3 , 40536, 02986, 74948 X2, 96453 X 4, 69754 x1, 93645 [id number] 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 Mathematical Technician sections are submitted as follows: C6 - [...] shows ulcer and granulation tissue. On C19, Henderson-8 positivity confirms portion of thyroidtissue present. On [...] stains. Immunohistochemistry technical testing was performed at [facility] Pathology Laboratory where it was [...] clinical laboratory testing.CBC W/PLT COUNT & AUTO [id number] 09:34:00 Test Item Value Reference Range Comments WHITE BLOOD CELL COUNT (BEAKER) (test xddp=163) 10.8 K/ L 3.5-10.5 RED BLOOD CELL COUNT (BEAKER) (test kfzv=455) 3.45 M/ L 4.63-6.08 HEMOGLOBIN (BEAKER) (test madc=027) 10.2 GM/DL 13.7-17.5 HEMATOCRIT (BEAKER) (test iyif=293) 34.1 % 40.1-51.0 MEAN CORPUSCULAR VOLUME (BEAKER) (test qefa=809) 98.8 fL 79.0-92.2 MEAN CORPUSCULAR HEMOGLOBIN (BEAKER) (test 29.6 pg 25.7-32.2 rqre=992) MEAN CORPUSCULAR HEMOGLOBIN CONC (BEAKER) (test 29.9 GM/DL 32.3-36.5 degr=337) RED CELL DISTRIBUTION WIDTH (BEAKER) (test 15.7 % 11.6-14.4 gzri=143) PLATELET COUNT (BEAKER) (test kuaf=966) 522 K/CU MM 150-450 MEAN PLATELET VOLUME (BEAKER) (test iqxc=880) 10.2 fL 9.4-12.4 NUCLEATED RED BLOOD CELLS (BEAKER) (test 0 /100 WBC 0-0 nwyc=384) (CELLAVISION MANUAL DIFF)2018-07-24 09:34:00 Test Item Value Reference Range Comments NEUTROPHILS - REL (CELLAVISION)(BEAKER) (test 80 % hlhd=9924) LYMPHOCYTES - REL (CELLAVISION)(BEAKER) (test 2 % hmii=6081) MONOCYTES - REL (CELLAVISION)(BEAKER) (test 15 % qunc=0851) EOSINOPHILS - REL (CELLAVISION)(BEAKER) (test 3 % ahmj=9611) NEUTROPHILS - ABS (CELLAVISION)(BEAKER) (test 8.64 K/ul 1.78-5.38 rghf=0324) LYMPHOCYTES - ABS (CELLAVISION)(BEAKER) (test 0.22 K/ul 1.32-3.57 rlwm=6808) MONOCYTES - ABS (CELLAVISION)(BEAKER) (test 1.62 K/uL 0.30-0.82 socl=7778) EOSINOPHILS - ABS (CELLAVISION)(BEAKER) (test 0.32 K/uL 0.04-0.54 lhkg=8954) TOTAL COUNTED (BEAKER) (test pxqf=2645) 100 WBC MORPHOLOGY (BEAKER) (test objn=281) Normal LARGE PLT(BEAKER) (test hyae=7474) Present POLYCHROMATOPHILLIC RBCS(BEAKER) (test gxcc=050) 1+ few ARTIFACT (CELLAVISION)(BEAKER) (test mjna=6558) Present PLATELET CONCENTRATION (CELLAVISION)(BEAKER) (test Increased fdar=3665) Received comment: User comments: Slide comments:[id number] 05:40:00 Test Item Value Reference Range Comments PHOSPHORUS (BEAKER) (test txvb=203) 4.8 mg/dL 2.3-4.7 [id number] 05:40:00 Test Item Value Reference Range Comments MAGNESIUM (BEAKER) (test ybkk=594) 2.1 mg/dL 1.6-2.6 BASIC METABOLIC [id number] 05:40:00 Test Item Value Reference Range Comments SODIUM (BEAKER) (test 140 meq/L 136-145 dyre=083) POTASSIUM (BEAKER) (test 4.0 meq/L 3.5-5.1 vlvj=323) CHLORIDE (BEAKER) (test 99 meq/L 98-107 ugmz=245) CO2 (BEAKER) (test 30 meq/L 22-29 bxqy=596) BLOOD UREA NITROGEN 8 mg/dL 7-21 (BEAKER) (test yeff=953) CREATININE (BEAKER) (test 0.71 mg/dL 0.57-1.25 ebgt=130) GLUCOSE RANDOM (BEAKER) 90 mg/dL 70-105 (test qsos=223) CALCIUM (BEAKER) (test 8.8 mg/dL 8.4-10.2 mnga=793) EGFR (BEAKER) (test 118 mL/min/1.73 sq m ESTIMATED GFR IS NOT ryqd=4207) ACCURATE CREATININE CLEARANCE IN PREDICTING GLOMERULAR FILTRATION RATE. ESTIMATED GFR IS NOT APPLICABLE FOR DIALYSIS PATIENTS. CBC W/PLT COUNT & AUTO [id number] 11:50:00 Test Item Value Reference Range Comments WHITE BLOOD CELL COUNT (BEAKER) (test conb=149) 13.2 K/ L 3.5-10.5 RED BLOOD CELL COUNT (BEAKER) (test hcjk=030) 3.41 M/ L 4.63-6.08 HEMOGLOBIN (BEAKER) (test acss=490) 10.2 GM/DL 13.7-17.5 HEMATOCRIT (BEAKER) (test bqtd=422) 33.2 % 40.1-51.0 MEAN CORPUSCULAR VOLUME (BEAKER) (test vwsx=697) 97.4 fL 79.0-92.2 MEAN CORPUSCULAR HEMOGLOBIN (BEAKER) (test 29.9 pg 25.7-32.2 ecce=247) MEAN CORPUSCULAR HEMOGLOBIN CONC (BEAKER) (test 30.7 GM/DL 32.3-36.5 jprf=009) RED CELL DISTRIBUTION WIDTH (BEAKER) (test 15.5 % 11.6-14.4 clop=103) PLATELET COUNT (BEAKER) (test mhuf=609) 473 K/CU MM 150-450 MEAN PLATELET VOLUME (BEAKER) (test fhoo=713) 10.0 fL 9.4-12.4 NUCLEATED RED BLOOD CELLS (BEAKER) (test 0 /100 WBC 0-0 vdon=817) (CELLAVISION MANUAL DIFF)2018-07-23 11:50:00 Test Item Value Reference Range Comments NEUTROPHILS - REL (CELLAVISION)(BEAKER) (test 80 % yyaf=3225) LYMPHOCYTES - REL (CELLAVISION)(BEAKER) (test 8 % gfnm=2157) MONOCYTES - REL (CELLAVISION)(BEAKER) (test 4 % nvqq=7151) EOSINOPHILS - REL (CELLAVISION)(BEAKER) (test 1 % hohj=6658) MYELOCYTES - REL (CELLAVISION)(BEAKER) (test 2 % 0-0 kxco=7727) BANDS - REL (CELLAVISION)(BEAKER) (test 4 % 0-10 ybad=0777) NEUTROPHILS - ABS (CELLAVISION)(BEAKER) (test 10.56 K/ul 1.78-5.38 psfq=1851) LYMPHOCYTES - ABS (CELLAVISION)(BEAKER) (test 1.06 K/ul 1.32-3.57 utxg=2290) MONOCYTES - ABS (CELLAVISION)(BEAKER) (test 0.53 K/uL 0.30-0.82 bstq=2303) EOSINOPHILS - ABS (CELLAVISION)(BEAKER) (test 0.13 K/uL 0.04-0.54 nmwi=3101) MYELOCYTES-ABS (CELLAVISION)(BEAKER) (test 0.26 K/uL 0.00-0.00 fpgr=5386) BANDS - ABS (CELLAVISION)(BEAKER) (test 0.53 K/uL 0.00-0.80 zvua=6909) TOTAL COUNTED (BEAKER) (test pdgc=4071) 100 WBC MORPHOLOGY (BEAKER) (test qaxv=824) Normal PLT MORPHOLOGY (BEAKER) (test coco=800) Normal ANISOCYTOSIS (BEAKER) (test psrb=735) 2+ moderate MICROCYTES (BEAKER) (test hyrv=106) 1+ few ARTIFACT (CELLAVISION)(BEAKER) (test dyhc=4082) Present PLATELET CONCENTRATION (CELLAVISION)(BEAKER) Increased (test svhv=6789) Received comment: User comments: Slide comments:SPUTUM CULTURE + GRAM [id number] 10:46:00 Test Item Value Reference Range Comments CULTURE (BEAKER) (test <1+ Normal respiratory maximo xfnc=3135) present GRAM STAIN RESULT (BEAKER) <1+ White blood cells seen (test iwjb=1675) GRAM STAIN RESULT (BEAKER) 0-5 epithelial cells (test tfgt=69277) GRAM STAIN RESULT (BEAKER) No organisms seen (test tvdk=92120) [id number] 06:07:00 Test Item Value Reference Range Comments PHOSPHORUS (BEAKER) (test tjln=328) 4.6 mg/dL 2.3-4.7 [id number] 06:07:00 Test Item Value Reference Range Comments MAGNESIUM (BEAKER) (test armw=041) 2.0 mg/dL 1.6-2.6 BASIC METABOLIC [id number] 06:07:00 Test Item Value Reference Range Comments SODIUM (BEAKER) (test 140 meq/L 136-145 alba=392) POTASSIUM (BEAKER) (test 4.3 meq/L 3.5-5.1 bmvx=788) CHLORIDE (BEAKER) (test 101 meq/L 98-107 nwgc=278) CO2 (BEAKER) (test 31 meq/L 22-29 xggj=325) BLOOD UREA NITROGEN 10 mg/dL 7-21 (BEAKER) (test gqxj=761) CREATININE (BEAKER) (test 0.67 mg/dL 0.57-1.25 imjl=741) GLUCOSE RANDOM (BEAKER) 111 mg/dL 70-105 (test xjir=184) CALCIUM (BEAKER) (test 8.7 mg/dL 8.4-10.2 jnhj=780) EGFR (BEAKER) (test 127 mL/min/1.73 sq m ESTIMATED GFR IS NOT aqpm=4871) ACCURATE CREATININE CLEARANCE IN PREDICTING GLOMERULAR FILTRATION RATE. ESTIMATED GFR IS NOT APPLICABLE FOR DIALYSIS PATIENTS. VANCOMYCIN LEVEL, [id number] 23:12:00 Test Item Value Reference Range Comments VANCOMYCIN TROUGH (BEAKER) (test wzrn=979) 3.2 ug/mL 10.0-20.0 POCT-GLUCOSE [id number] 17:57:00 Test Item Value Reference Range Comments POC-GLUCOSE METER (BEAKER) 105 mg/dL 70-110 TESTED AT [address] (test lqto=6971) [facility] [address] CBC W/PLT COUNT & AUTO [id number] 13:00:00 Test Item Value Reference Range Comments WHITE BLOOD CELL COUNT (BEAKER) (test xpdb=298) 12.5 K/ L 3.5-10.5 RED BLOOD CELL COUNT (BEAKER) (test zkor=702) 3.46 M/ L 4.63-6.08 HEMOGLOBIN (BEAKER) (test sxxd=217) 10.4 GM/DL 13.7-17.5 HEMATOCRIT (BEAKER) (test gymu=709) 33.5 % 40.1-51.0 MEAN CORPUSCULAR VOLUME (BEAKER) (test lzdv=338) 96.8 fL 79.0-92.2 MEAN CORPUSCULAR HEMOGLOBIN (BEAKER) (test 30.1 pg 25.7-32.2 cvly=122) MEAN CORPUSCULAR HEMOGLOBIN CONC (BEAKER) (test 31.0 GM/DL 32.3-36.5 hjut=459) RED CELL DISTRIBUTION WIDTH (BEAKER) (test 15.4 % 11.6-14.4 bmmu=551) PLATELET COUNT (BEAKER) (test noly=315) 425 K/CU MM 150-450 MEAN PLATELET VOLUME (BEAKER) (test ayeg=354) 10.1 fL 9.4-12.4 NUCLEATED RED BLOOD CELLS (BEAKER) (test 0 /100 WBC 0-0 zgom=106) (CELLAVISION MANUAL DIFF)2018-07-22 13:00:00 Test Item Value Reference Range Comments NEUTROPHILS - REL (CELLAVISION)(BEAKER) (test 80 % njvz=9800) LYMPHOCYTES - REL (CELLAVISION)(BEAKER) (test 4 % qqqw=1023) MONOCYTES - REL (CELLAVISION)(BEAKER) (test 6 % lggo=3183) EOSINOPHILS - REL (CELLAVISION)(BEAKER) (test 6 % ncvj=6021) BASOPHILS - REL (CELLAVISION)(BEAKER) (test 1 % muut=4998) MYELOCYTES - REL (CELLAVISION)(BEAKER) (test 3 % 0-0 qhwt=9547) NEUTROPHILS - ABS (CELLAVISION)(BEAKER) (test 10.00 K/ul 1.78-5.38 cbna=1053) LYMPHOCYTES - ABS (CELLAVISION)(BEAKER) (test 0.50 K/ul 1.32-3.57 qotg=9979) MONOCYTES - ABS (CELLAVISION)(BEAKER) (test 0.75 K/uL 0.30-0.82 rree=2160) EOSINOPHILS - ABS (CELLAVISION)(BEAKER) (test 0.75 K/uL 0.04-0.54 jkxf=0692) BASOPHILS - ABS (CELLAVISION)(BEAKER) (test 0.13 K/uL 0.01-0.08 fxhk=2443) MYELOCYTES-ABS (CELLAVISION)(BEAKER) (test 0.38 K/uL 0.00-0.00 gezk=2065) TOTAL COUNTED (BEAKER) (test ssep=7546) 100 WBC MORPHOLOGY (BEAKER) (test eogt=913) Normal PLT MORPHOLOGY (BEAKER) (test dxjl=973) Normal POLYCHROMATOPHILLIC RBCS(BEAKER) (test lfch=226) 1+ few ANISOCYTOSIS (BEAKER) (test vgjm=593) 1+ few MACROCYTES (BEAKER) (test jbtg=033) 1+ few POIKILOCYTES (BEAKER) (test fibn=789) 2+ moderate ARTIFACT (CELLAVISION)(BEAKER) (test coxf=4443) Present PLATELET CONCENTRATION (CELLAVISION)(BEAKER) Adequate (test pomo=8371) Received comment: User comments: Slide comments:POCT-GLUCOSE [id number] 12: 50:00 Test Item Value Reference Range Comments POC-GLUCOSE METER (BEAKER) 117 mg/dL 70-110 TESTED AT [facility] [address] [facility] (test hdgm=0130) [facility] [address] [id number] 07:00:00 Test Item Value Reference Range Comments PHOSPHORUS (BEAKER) (test bkyh=146) 4.2 mg/dL 2.3-4.7 [id number] 07:00:00 Test Item Value Reference Range Comments MAGNESIUM (BEAKER) (test cqdl=188) 1.9 mg/dL 1.6-2.6 BASIC METABOLIC [id number] 07:00:00 Test Item Value Reference Range Comments SODIUM (BEAKER) (test 140 meq/L 136-145 nptt=435) POTASSIUM (BEAKER) (test 4.0 meq/L 3.5-5.1 njwa=006) CHLORIDE (BEAKER) (test 101 meq/L 98-107 zpuv=342) CO2 (BEAKER) (test 32 meq/L 22-29 pjmq=646) BLOOD UREA NITROGEN 9 mg/dL 7-21 (BEAKER) (test wboc=113) CREATININE (BEAKER) (test 0.62 mg/dL 0.57-1.25 yroa=145) GLUCOSE RANDOM (BEAKER) 104 mg/dL 70-105 (test acbh=167) CALCIUM (BEAKER) (test 8.4 mg/dL 8.4-10.2 dbjr=726) EGFR (BEAKER) (test 138 mL/min/1.73 sq m ESTIMATED GFR IS NOT ilya=0350) ACCURATE CREATININE CLEARANCE IN PREDICTING GLOMERULAR FILTRATION RATE. ESTIMATED GFR IS NOT APPLICABLE FOR DIALYSIS PATIENTS. CBC W/PLT COUNT & AUTO [id number] 10:11:00 Test Item Value Reference Range Comments WHITE BLOOD CELL COUNT (BEAKER) (test efsc=246) 10.8 K/ L 3.5-10.5 RED BLOOD CELL COUNT (BEAKER) (test vdft=301) 3.48 M/ L 4.63-6.08 HEMOGLOBIN (BEAKER) (test vuci=849) 10.6 GM/DL 13.7-17.5 HEMATOCRIT (BEAKER) (test hrsf=826) 33.9 % 40.1-51.0 MEAN CORPUSCULAR VOLUME (BEAKER) (test wdri=409) 97.4 fL 79.0-92.2 MEAN CORPUSCULAR HEMOGLOBIN (BEAKER) (test 30.5 pg 25.7-32.2 hxcd=492) MEAN CORPUSCULAR HEMOGLOBIN CONC (BEAKER) (test 31.3 GM/DL 32.3-36.5 zjam=080) RED CELL DISTRIBUTION WIDTH (BEAKER) (test 15.4 % 11.6-14.4 uxtu=102) PLATELET COUNT (BEAKER) (test grmy=342) 431 K/CU MM 150-450 MEAN PLATELET VOLUME (BEAKER) (test ggai=523) 10.0 fL 9.4-12.4 NUCLEATED RED BLOOD CELLS (BEAKER) (test 0 /100 WBC 0-0 svlr=136) (CELLAVISION MANUAL DIFF)2018-07-21 10:11:00 Test Item Value Reference Range Comments NEUTROPHILS - REL (CELLAVISION)(BEAKER) (test 77 % mnmb=0667) LYMPHOCYTES - REL (CELLAVISION)(BEAKER) (test 3 % rkqe=1935) MONOCYTES - REL (CELLAVISION)(BEAKER) (test 7 % mhvc=9595) EOSINOPHILS - REL (CELLAVISION)(BEAKER) (test 3 % ldwr=4443) MYELOCYTES - REL (CELLAVISION)(BEAKER) (test 4 % 0-0 yhxm=1052) PROMYELOCYTES - REL (CELLAVSION)(BEAKER) (test 1 % 0-0 xrbt=0549) BANDS - REL (CELLAVISION)(BEAKER) (test 5 % 0-10 gcri=8976) NEUTROPHILS - ABS (CELLAVISION)(BEAKER) (test 8.32 K/ul 1.78-5.38 jxys=5020) LYMPHOCYTES - ABS (CELLAVISION)(BEAKER) (test 0.32 K/ul 1.32-3.57 rjtm=7178) MONOCYTES - ABS (CELLAVISION)(BEAKER) (test 0.76 K/uL 0.30-0.82 lwvj=5612) EOSINOPHILS - ABS (CELLAVISION)(BEAKER) (test 0.32 K/uL 0.04-0.54 askn=3714) MYELOCYTES-ABS (CELLAVISION)(BEAKER) (test 0.43 K/uL 0.00-0.00 zyav=9371) PROMYELOCYTES - ABS (CELLAVISION)(BEAKER) (test 0.11 K/uL 0.00-0.00 ifch=2076) BANDS - ABS (CELLAVISION)(BEAKER) (test 0.54 K/uL 0.00-0.80 izcd=5607) TOTAL COUNTED (BEAKER) (test lmyp=8345) 100 WBC MORPHOLOGY (BEAKER) (test gxhn=586) Normal PLT MORPHOLOGY (BEAKER) (test tqbn=738) Normal ANISOCYTOSIS (BEAKER) (test vmvv=001) 2+ moderate MICROCYTES (BEAKER) (test btts=537) 2+ moderate ARTIFACT (CELLAVISION)(BEAKER) (test shhu=2329) Present PLATELET CONCENTRATION (CELLAVISION)(BEAKER) Adequate (test qtnr=6190) Received comment: User comments: Slide comments:[id number] 05:39:00 Test Item Value Reference Range Comments PHOSPHORUS (BEAKER) (test igci=358) 5.1 mg/dL 2.3-4.7 [id number] 05:39:00 Test Item Value Reference Range Comments MAGNESIUM (BEAKER) (test wgyj=241) 2.0 mg/dL 1.6-2.6 BASIC METABOLIC [id number] 05:39:00 Test Item Value Reference Range Comments SODIUM (BEAKER) (test 139 meq/L 136-145 ppee=071) POTASSIUM (BEAKER) (test 4.3 meq/L 3.5-5.1 gqzl=714) CHLORIDE (BEAKER) (test 100 meq/L 98-107 rufm=042) CO2 (BEAKER) (test 29 meq/L 22-29 yjlj=955) BLOOD UREA NITROGEN 10 mg/dL 7-21 (BEAKER) (test weca=876) CREATININE (BEAKER) (test 0.64 mg/dL 0.57-1.25 rtlm=041) GLUCOSE RANDOM (BEAKER) 97 mg/dL 70-105 (test vhks=790) CALCIUM (BEAKER) (test 8.6 mg/dL 8.4-10.2 rzgv=498) EGFR (BEAKER) (test 133 mL/min/1.73 sq m ESTIMATED GFR IS NOT tawi=5296) ACCURATE CREATININE CLEARANCE IN PREDICTING GLOMERULAR FILTRATION RATE. ESTIMATED GFR IS NOT APPLICABLE FOR DIALYSIS PATIENTS. VANCOMYCIN LEVEL, [id number] 23:38:00 Test Item Value Reference Range Comments VANCOMYCIN TROUGH (BEAKER) (test xotc=656) 5.5 ug/mL 10.0-20.0 CBC W/PLT COUNT & AUTO [id number] 10:44:00 Test Item Value Reference Range Comments WHITE BLOOD CELL COUNT (BEAKER) (test kspc=838) 14.3 K/ L 3.5-10.5 RED BLOOD CELL COUNT (BEAKER) (test vvel=355) 3.43 M/ L 4.63-6.08 HEMOGLOBIN (BEAKER) (test podw=225) 10.4 GM/DL 13.7-17.5 HEMATOCRIT (BEAKER) (test qnud=963) 33.5 % 40.1-51.0 MEAN CORPUSCULAR VOLUME (BEAKER) (test ejuv=075) 97.7 fL 79.0-92.2 MEAN CORPUSCULAR HEMOGLOBIN (BEAKER) (test 30.3 pg 25.7-32.2 tzps=942) MEAN CORPUSCULAR HEMOGLOBIN CONC (BEAKER) (test 31.0 GM/DL 32.3-36.5 wefe=966) RED CELL DISTRIBUTION WIDTH (BEAKER) (test 15.7 % 11.6-14.4 npai=478) PLATELET COUNT (BEAKER) (test jvpv=119) 402 K/CU MM 150-450 MEAN PLATELET VOLUME (BEAKER) (test iekw=098) 10.6 fL 9.4-12.4 NUCLEATED RED BLOOD CELLS (BEAKER) (test 0 /100 WBC 0-0 ttyd=008) (CELLAVISION MANUAL DIFF)[id number] 10:44:00 Test Item Value Reference Range Comments NEUTROPHILS - REL (CELLAVISION)(BEAKER) (test 83 % yzzg=4175) LYMPHOCYTES - REL (CELLAVISION)(BEAKER) (test 2 % cmut=9236) MONOCYTES - REL (CELLAVISION)(BEAKER) (test 9 % xxga=2308) EOSINOPHILS - REL (CELLAVISION)(BEAKER) (test 3 % orto=4823) MYELOCYTES - REL (CELLAVISION)(BEAKER) (test 1 % 0-0 ohzg=8866) BANDS - REL (CELLAVISION)(BEAKER) (test 2 % 0-10 myll=7342) NEUTROPHILS - ABS (CELLAVISION)(BEAKER) (test 11.87 K/ul 1.78-5.38 hogm=5664) LYMPHOCYTES - ABS (CELLAVISION)(BEAKER) (test 0.29 K/ul 1.32-3.57 rzyi=6403) MONOCYTES - ABS (CELLAVISION)(BEAKER) (test 1.29 K/uL 0.30-0.82 ppmk=8638) EOSINOPHILS - ABS (CELLAVISION)(BEAKER) (test 0.43 K/uL 0.04-0.54 xtiq=8412) MYELOCYTES-ABS (CELLAVISION)(BEAKER) (test 0.14 K/uL 0.00-0.00 wxse=6431) BANDS - ABS (CELLAVISION)(BEAKER) (test 0.29 K/uL 0.00-0.80 spbd=7130) TOTAL COUNTED (BEAKER) (test bhmb=7597) 100 WBC MORPHOLOGY (BEAKER) (test osfs=002) Normal GIANT PLATELETS (BEAKER) (test hnkm=577) Present POLYCHROMATOPHILLIC RBCS(BEAKER) (test efnx=197) 1+ few ANISOCYTOSIS (BEAKER) (test tdpo=104) 1+ few ARTIFACT (CELLAVISION)(BEAKER) (test mxln=7112) Present PLATELET CONCENTRATION (CELLAVISION)(BEAKER) Adequate (test zwlk=9999) Received comment: User comments: Slide comments:[id number] 06:44:00 Test Item Value Reference Range Comments MAGNESIUM (BEAKER) (test 2.1 mg/dL 1.6-2.6 Specimen slightly hemolyzed vjnx=831) [id number] 06:44:00 Test Item Value Reference Range Comments PHOSPHORUS (BEAKER) (test 5.0 mg/dL 2.3-4.7 Specimen slightly hemolyzed qlcq=732) BASIC METABOLIC [id number] 06:44:00 Test Item Value Reference Range Comments SODIUM (BEAKER) (test 138 meq/L 136-145 sldy=894) POTASSIUM (BEAKER) (test 4.6 meq/L 3.5-5.1 Specimen slightly szgh=164) hemolyzed CHLORIDE (BEAKER) (test 99 meq/L 98-107 vyzr=373) CO2 (BEAKER) (test 30 meq/L 22-29 ftpp=567) BLOOD UREA NITROGEN 10 mg/dL 7-21 (BEAKER) (test khup=071) CREATININE (BEAKER) (test 0.67 mg/dL 0.57-1.25 Specimen slightly lcwq=177) hemolyzed GLUCOSE RANDOM (BEAKER) 87 mg/dL 70-105 (test ubwm=524) CALCIUM (BEAKER) (test 8.7 mg/dL 8.4-10.2 tblk=856) EGFR (BEAKER) (test 127 mL/min/1.73 sq m ESTIMATED GFR IS NOT gbgh=8033) ACCURATE CREATININE CLEARANCE IN PREDICTING GLOMERULAR FILTRATION RATE. ESTIMATED GFR IS NOT APPLICABLE FOR DIALYSIS PATIENTS. [id number] 06:06:00 Test Item Value Reference Range Comments PROTIME (BEAKER) (test vybm=344) 15.6 seconds 11.7-14.7 INR (BEAKER) (test jxnm=188) 1.2 <=5.9 PARTIAL THROMBOPLASTIN TIME (BEAKER) (test 46.0 seconds 22.5-36.0 oekv=813) RECOMMENDED COUMADIN/WARFARIN INR THERAPY RANGESSTANDARD DOSE: 2.0 - 3.0 Includes: PROPHYLAXIS forvenous thrombosis, systemic embolization; TREATMENT for venous thrombosis and/or pulmonary embolus.HIGH RISK: Target INR is 2.5-3.5 for patients with mechanical heart valves.SPUTUM CULTURE + GRAM [id number] 14:44:00 Test Item Value Reference Range Comments CULTURE (BEAKER) (test Oropharyngeal contamination, mdzx=1199) specimen rejected. Recollect requested. GRAM STAIN RESULT (BEAKER) <1+ WBCs (test ctya=2433) GRAM STAIN RESULT (BEAKER) >25 epithelial cells (test zcvs=61262) GRAM STAIN RESULT (BEAKER) <1+ gram positive rods (test inpo=76670) RAD, CHEST, 1 VIEW, NON [id number] 13:59:00Reason for exam:-> leukocytosis in setting of [...] MDReport Verified Date/Time: 07/19/2018 13:59:21 Reading Location: [address] Consult Reading Room URINALYSIS W/ REFLEX URINE [id number] 11:14:00 Test Item Value Reference Range Comments COLOR (BEAKER) (test scpt=239) Light Yellow CLARITY (BEAKER) (test itnk=578) Clear SPECIFIC GRAVITY UA (BEAKER) (test whds=550) 1.013 1.001-1.035 PH UA (BEAKER) (test noiw=672) 6.0 5.0-8.0 PROTEIN UA (BEAKER) (test ucnx=502) Negative Negative GLUCOSE UA (BEAKER) (test kjwd=812) Negative Negative KETONES UA (BEAKER) (test nnzv=380) Negative Negative BILIRUBIN UA (BEAKER) (test gwxc=407) Negative Negative BLOOD UA (BEAKER) (test vcmz=601) Trace Negative NITRITE UA (BEAKER) (test fpqi=450) Negative Negative LEUKOCYTE ESTERASE UA (BEAKER) (test jtyd=488) Small Negative UROBILINOGEN UA (BEAKER) (test dwuc=433) 0.2 mg/dL 0.2-1.0 RBC UA (BEAKER) (test bpxe=956) 2 /HPF WBC UA (BEAKER) (test lwrs=770) 15 /HPF MUCUS (BEAKER) (test iloo=5623) Occasional HYALINE CASTS (BEAKER) (test unbj=647) 2 /LPF SOURCE(BEAKER) (test fkar=7683) POCT-GLUCOSE [id number] 06:46:00 Test Item Value Reference Range Comments POC-GLUCOSE METER (BEAKER) 102 mg/dL 70-110 TESTED AT [facility] [address] [facility] (test qlhv=3434) [facility] [address] [id number] 04:52:00 Test Item Value Reference Range Comments PHOSPHORUS (BEAKER) (test zgjb=454) 4.1 mg/dL 2.3-4.7 [id number] 04:52:00 Test Item Value Reference Range Comments MAGNESIUM (BEAKER) (test ywse=873) 1.8 mg/dL 1.6-2.6 BASIC METABOLIC [id number] 04:52:00 Test Item Value Reference Range Comments SODIUM (BEAKER) (test 138 meq/L 136-145 zfnh=003) POTASSIUM (BEAKER) (test 3.7 meq/L 3.5-5.1 vuvt=852) CHLORIDE (BEAKER) (test 101 meq/L 98-107 nice=477) CO2 (BEAKER) (test 26 meq/L 22-29 yjoi=401) BLOOD UREA NITROGEN 10 mg/dL 7-21 (BEAKER) (test cwnp=063) CREATININE (BEAKER) (test 0.67 mg/dL 0.57-1.25 txlu=492) GLUCOSE RANDOM (BEAKER) 111 mg/dL 70-105 (test nmhs=024) CALCIUM (BEAKER) (test 8.5 mg/dL 8.4-10.2 brio=284) EGFR (BEAKER) (test 127 mL/min/1.73 sq m ESTIMATED GFR IS NOT uhri=7206) ACCURATE CREATININE CLEARANCE IN PREDICTING GLOMERULAR FILTRATION RATE. ESTIMATED GFR IS NOT APPLICABLE FOR DIALYSIS PATIENTS. CBC W/PLT COUNT & AUTO [id number] 04:25:00 Test Item Value Reference Range Comments WHITE BLOOD CELL COUNT (BEAKER) (test xvtu=998) 13.6 K/ L 3.5-10.5 RED BLOOD CELL COUNT (BEAKER) (test hcbo=103) 3.58 M/ L 4.63-6.08 HEMOGLOBIN (BEAKER) (test rnbu=253) 10.8 GM/DL 13.7-17.5 HEMATOCRIT (BEAKER) (test hdwb=019) 34.8 % 40.1-51.0 MEAN CORPUSCULAR VOLUME (BEAKER) (test ucqx=361) 97.2 fL 79.0-92.2 MEAN CORPUSCULAR HEMOGLOBIN (BEAKER) (test 30.2 pg 25.7-32.2 yplj=303) MEAN CORPUSCULAR HEMOGLOBIN CONC (BEAKER) (test 31.0 GM/DL 32.3-36.5 hgvy=159) RED CELL DISTRIBUTION WIDTH (BEAKER) (test 15.1 % 11.6-14.4 qhfv=536) PLATELET COUNT (BEAKER) (test fcpr=925) 392 K/CU MM 150-450 MEAN PLATELET VOLUME (BEAKER) (test jlki=628) 10.0 fL 9.4-12.4 NUCLEATED RED BLOOD CELLS (BEAKER) (test 0 /100 WBC 0-0 avia=164) NEUTROPHILS RELATIVE PERCENT (BEAKER) (test 78 % lsrv=478) LYMPHOCYTES RELATIVE PERCENT (BEAKER) (test 5 % kjab=531) MONOCYTES RELATIVE PERCENT (BEAKER) (test 10 % fvwn=921) EOSINOPHILS RELATIVE PERCENT (BEAKER) (test 2 % hlsk=380) BASOPHILS RELATIVE PERCENT (BEAKER) (test 1 % ctol=551) NEUTROPHILS ABSOLUTE COUNT (BEAKER) (test 10.68 K/ L 1.78-5.38 lsee=857) LYMPHOCYTES ABSOLUTE COUNT (BEAKER) (test 0.68 K/ L 1.32-3.57 dvew=933) MONOCYTES ABSOLUTE COUNT (BEAKER) (test 1.40 K/ L 0.30-0.82 ggbq=474) EOSINOPHILS ABSOLUTE COUNT (BEAKER) (test 0.31 K/ L 0.04-0.54 lkif=264) BASOPHILS ABSOLUTE COUNT (BEAKER) (test 0.08 K/ L 0.01-0.08 xsbs=296) IMMATURE GRANULOCYTES-RELATIVE PERCENT (BEAKER) 3 % 0-1 (test otwd=0027) [id number] 04:11:00 Test Item Value Reference Range Comments PROTIME (BEAKER) (test txye=681) 15.8 seconds 11.7-14.7 INR (BEAKER) (test jqoa=245) 1.2 <=5.9 PARTIAL THROMBOPLASTIN TIME (BEAKER) (test 48.2 seconds 22.5-36.0 zyes=624) RECOMMENDED COUMADIN/WARFARIN INR THERAPY RANGESSTANDARD DOSE: 2.0 - 3.0 Includes: PROPHYLAXIS forvenous thrombosis, systemic embolization; TREATMENT for venous thrombosis and/or pulmonary embolus.HIGH RISK: Target INR is 2.5-3.5 for patients with mechanical heart valves.POCT-GLUCOSE [id number] 00:11:00 Test Item Value Reference Range Comments POC-GLUCOSE METER (BEAKER) 76 mg/dL 70-110 TESTED AT [address] (test cghn=2322) [place] [address] POCT-GLUCOSE [id number] 17:53:00 Test Item Value Reference Range Comments POC-GLUCOSE METER (BEAKER) 94 mg/dL 70-110 TESTED AT [address] (test vbnl=1557) [place] [address] T4, [id number] 11:41:00 Test Item Value Reference Range Comments FREE T4 (BEAKER) (test ybpv=059) 0.90 ng/dL 0.70-1.48 POCT-GLUCOSE [id number] 11:35:00 Test Item Value Reference Range Comments POC-GLUCOSE METER (BEAKER) 103 mg/dL 70-110 TESTED AT [address] (test zqip=5521) [place] [address] TSH/FREE T4 IF [id number] 10:50:00 Test Item Value Reference Range Comments THYROID STIMULATING HORMONE (BEAKER) (test 14.67 uIU/mL 0.35-4.94 cedz=812) POCT-GLUCOSE [id number] 06:42:00 Test Item Value Reference Range Comments POC-GLUCOSE METER (BEAKER) 111 mg/dL 70-110 TESTED AT [address] (test pvxc=7711) [place] [address] CBC W/PLT COUNT & AUTO [id number] 05:20:00 Test Item Value Reference Range Comments WHITE BLOOD CELL COUNT (BEAKER) (test kaqb=912) 11.4 K/ L 3.5-10.5 RED BLOOD CELL COUNT (BEAKER) (test bxlp=052) 3.40 M/ L 4.63-6.08 HEMOGLOBIN (BEAKER) (test afnr=559) 10.3 GM/DL 13.7-17.5 HEMATOCRIT (BEAKER) (test dzha=131) 33.6 % 40.1-51.0 MEAN CORPUSCULAR VOLUME (BEAKER) (test zabi=927) 98.8 fL 79.0-92.2 MEAN CORPUSCULAR HEMOGLOBIN (BEAKER) (test 30.3 pg 25.7-32.2 hhra=275) MEAN CORPUSCULAR HEMOGLOBIN CONC (BEAKER) (test 30.7 GM/DL 32.3-36.5 aibg=873) RED CELL DISTRIBUTION WIDTH (BEAKER) (test 15.3 % 11.6-14.4 xlpt=306) PLATELET COUNT (BEAKER) (test fhsz=296) 365 K/CU MM 150-450 MEAN PLATELET VOLUME (BEAKER) (test xaca=598) 10.2 fL 9.4-12.4 NUCLEATED RED BLOOD CELLS (BEAKER) (test 0 /100 WBC 0-0 mmxp=345) NEUTROPHILS RELATIVE PERCENT (BEAKER) (test 80 % vafh=146) LYMPHOCYTES RELATIVE PERCENT (BEAKER) (test 6 % dngm=152) MONOCYTES RELATIVE PERCENT (BEAKER) (test 9 % mhxk=519) EOSINOPHILS RELATIVE PERCENT (BEAKER) (test 3 % jqmc=003) BASOPHILS RELATIVE PERCENT (BEAKER) (test 0 % hkeo=187) NEUTROPHILS ABSOLUTE COUNT (BEAKER) (test 9.06 K/ L 1.78-5.38 kmln=663) LYMPHOCYTES ABSOLUTE COUNT (BEAKER) (test 0.72 K/ L 1.32-3.57 zful=336) MONOCYTES ABSOLUTE COUNT (BEAKER) (test 1.06 K/ L 0.30-0.82 jjfz=041) EOSINOPHILS ABSOLUTE COUNT (BEAKER) (test 0.28 K/ L 0.04-0.54 sdax=780) BASOPHILS ABSOLUTE COUNT (BEAKER) (test 0.05 K/ L 0.01-0.08 vyzu=415) IMMATURE GRANULOCYTES-RELATIVE PERCENT (BEAKER) 2 % 0-1 (test dxqp=2336) [id number] 05:00:00 Test Item Value Reference Range Comments PHOSPHORUS (BEAKER) (test wkag=031) 5.2 mg/dL 2.3-4.7 [id number] 05:00:00 Test Item Value Reference Range Comments MAGNESIUM (BEAKER) (test welm=193) 2.0 mg/dL 1.6-2.6 BASIC METABOLIC [id number] 05:00:00 Test Item Value Reference Range Comments SODIUM (BEAKER) (test 141 meq/L 136-145 iais=843) POTASSIUM (BEAKER) (test 3.7 meq/L 3.5-5.1 ejet=905) CHLORIDE (BEAKER) (test 102 meq/L 98-107 thjn=248) CO2 (BEAKER) (test 29 meq/L 22-29 djrp=007) BLOOD UREA NITROGEN 7 mg/dL 7-21 (BEAKER) (test gdlv=276) CREATININE (BEAKER) (test 0.68 mg/dL 0.57-1.25 lnao=315) GLUCOSE RANDOM (BEAKER) 114 mg/dL 70-105 (test nsbh=100) CALCIUM (BEAKER) (test 8.2 mg/dL 8.4-10.2 yqvh=051) EGFR (BEAKER) (test 124 mL/min/1.73 sq m ESTIMATED GFR IS NOT ndvg=8515) ACCURATE CREATININE CLEARANCE IN PREDICTING GLOMERULAR FILTRATION RATE. ESTIMATED GFR IS NOT APPLICABLE FOR DIALYSIS PATIENTS. [id number] 04:55:00 Test Item Value Reference Range Comments PROTIME (BEAKER) (test rtpy=063) 15.2 seconds 11.7-14.7 INR (BEAKER) (test nwav=423) 1.2 <=5.9 PARTIAL THROMBOPLASTIN TIME (BEAKER) (test 38.9 seconds 22.5-36.0 dcuj=739) RECOMMENDED COUMADIN/WARFARIN INR THERAPY RANGESSTANDARD DOSE: 2.0 - 3.0 Includes: PROPHYLAXIS forvenous thrombosis, systemic embolization; TREATMENT for venous thrombosis and/or pulmonary embolus.HIGH RISK: Target INR is 2.5-3.5 for patients with mechanical heart valves.CBC W/PLT COUNT & AUTO [id number] 08:47:00 Test Item Value Reference Range Comments WHITE BLOOD CELL COUNT (BEAKER) (test lwdz=233) 13.2 K/ L 3.5-10.5 RED BLOOD CELL COUNT (BEAKER) (test veyv=868) 3.21 M/ L 4.63-6.08 HEMOGLOBIN (BEAKER) (test zwwr=926) 9.8 GM/DL 13.7-17.5 HEMATOCRIT (BEAKER) (test jzqd=044) 30.9 % 40.1-51.0 MEAN CORPUSCULAR VOLUME (BEAKER) (test vmyg=956) 96.3 fL 79.0-92.2 MEAN CORPUSCULAR HEMOGLOBIN (BEAKER) (test 30.5 pg 25.7-32.2 pyzi=458) MEAN CORPUSCULAR HEMOGLOBIN CONC (BEAKER) (test 31.7 GM/DL 32.3-36.5 mhul=747) RED CELL DISTRIBUTION WIDTH (BEAKER) (test 15.2 % 11.6-14.4 ktzr=575) PLATELET COUNT (BEAKER) (test opiw=878) 310 K/CU MM 150-450 MEAN PLATELET VOLUME (BEAKER) (test ujzt=625) 10.1 fL 9.4-12.4 NUCLEATED RED BLOOD CELLS (BEAKER) (test 0 /100 WBC 0-0 crke=927) (CELLAVISION MANUAL DIFF)2018-07-17 08:47:00 Test Item Value Reference Range Comments NEUTROPHILS - REL (CELLAVISION)(BEAKER) (test 88 % yalq=3740) LYMPHOCYTES - REL (CELLAVISION)(BEAKER) (test 2 % salg=6001) MONOCYTES - REL (CELLAVISION)(BEAKER) (test 5 % bjpt=2696) EOSINOPHILS - REL (CELLAVISION)(BEAKER) (test 3 % ndgx=6339) MYELOCYTES - REL (CELLAVISION)(BEAKER) (test 1 % 0-0 keqp=0950) ATYPICAL LYMPHOCYTES - REL (CELLAVISION)(BEAKER) 1 % 0-0 (test glvp=8760) NEUTROPHILS - ABS (CELLAVISION)(BEAKER) (test 11.62 K/ul 1.78-5.38 ajrg=4306) LYMPHOCYTES - ABS (CELLAVISION)(BEAKER) (test 0.26 K/ul 1.32-3.57 dqig=5002) MONOCYTES - ABS (CELLAVISION)(BEAKER) (test 0.66 K/uL 0.30-0.82 sedb=0530) EOSINOPHILS - ABS (CELLAVISION)(BEAKER) (test 0.40 K/uL 0.04-0.54 vvhq=9234) MYELOCYTES-ABS (CELLAVISION)(BEAKER) (test 0.13 K/uL 0.00-0.00 bxkq=1436) ATYPICAL LYMPHOCYTES - ABS (CELLAVISION)(BEAKER) 0.13 K/uL 0.00-0.00 (test hjri=0121) TOTAL COUNTED (BEAKER) (test vedg=4550) 100 WBC MORPHOLOGY (BEAKER) (test pimt=603) Normal PLT MORPHOLOGY (BEAKER) (test gymg=045) Normal ANISOCYTOSIS (BEAKER) (test grbv=836) 2+ moderate MICROCYTES (BEAKER) (test vxey=974) 2+ moderate ARTIFACT (CELLAVISION)(BEAKER) (test goyb=9752) Present PLATELET CONCENTRATION (CELLAVISION)(BEAKER) Adequate (test dvib=8494) Received comment: User comments: Slide comments:POCT-GLUCOSE [id number] 06: 41:00 Test Item Value Reference Range Comments POC-GLUCOSE METER (BEAKER) 115 mg/dL 70-110 TESTED AT [facility] [address] [facility] (test fkqy=1850) [facility] [address] BASIC METABOLIC [id number] 04:53:00 Test Item Value Reference Range Comments SODIUM (BEAKER) (test 138 meq/L 136-145 enqx=285) POTASSIUM (BEAKER) (test 3.4 meq/L 3.5-5.1 xcsh=387) CHLORIDE (BEAKER) (test 104 meq/L 98-107 vosy=882) CO2 (BEAKER) (test 25 meq/L 22-29 iafz=827) BLOOD UREA NITROGEN 7 mg/dL 7-21 (BEAKER) (test hmaf=362) CREATININE (BEAKER) (test 0.68 mg/dL 0.57-1.25 omfh=077) GLUCOSE RANDOM (BEAKER) 173 mg/dL 70-105 (test rmrn=869) CALCIUM (BEAKER) (test 7.6 mg/dL 8.4-10.2 sshf=798) EGFR (BEAKER) (test 124 mL/min/1.73 sq m ESTIMATED GFR IS NOT ncpw=0745) ACCURATE CREATININE CLEARANCE IN PREDICTING GLOMERULAR FILTRATION RATE. ESTIMATED GFR IS NOT APPLICABLE FOR DIALYSIS PATIENTS. [id number] 04:37:00 Test Item Value Reference Range Comments PHOSPHORUS (BEAKER) (test nelc=735) 3.9 mg/dL 2.3-4.7 [id number] 04:37:00 Test Item Value Reference Range Comments MAGNESIUM (BEAKER) (test rstq=569) 1.6 mg/dL 1.6-2.6 [id number] 04:37:00 Test Item Value Reference Range Comments ALBUMIN (BEAKER) (test holk=4322) 3.2 g/dL 3.5-5.0 [id number] 04:24:00 Test Item Value Reference Range Comments PROTIME (BEAKER) (test dbwm=373) 15.9 seconds 11.7-14.7 INR (BEAKER) (test qgni=697) 1.2 <=5.9 PARTIAL THROMBOPLASTIN TIME (BEAKER) (test 51.7 seconds 22.5-36.0 oqwe=615) RECOMMENDED COUMADIN/WARFARIN INR THERAPY RANGESSTANDARD DOSE: 2.0 - 3.0 Includes: PROPHYLAXIS forvenous thrombosis, systemic embolization; TREATMENT for venous thrombosis and/or pulmonary embolus.HIGH RISK: Target INR is 2.5-3.5 for patients with mechanical heart valves.RAD, CHEST, 1 VIEW, NON [id number] 03:56:00Reason for exam:->atelectasisShould this be performed [...] MDReport Verified Date/Time: 07/17/2018 03:56:49 Reading Location: [address] Reading Room POCT-GLUCOSE [id number] 00: 56:00 Test Item Value Reference Range Comments POC-GLUCOSE METER (BEAKER) 115 mg/dL 70-110 TESTED AT [facility] [address] [facility] (test bwxg=3664) [facility] [address] POCT-GLUCOSE [id number] 18:10:00 Test Item Value Reference Range Comments POC-GLUCOSE METER (BEAKER) 116 mg/dL 70-110 TESTED AT [address] (test sdzv=0066) [place] [id number] POCT-GLUCOSE [id number] 13:10:00 Test Item Value Reference Range Comments POC-GLUCOSE METER (BEAKER) 115 mg/dL 70-110 TESTED AT [address] (test hrlv=0522) [place] [address] RAD, CHEST, 1 VIEW, NON [id number] 08:20:00Reason for exam:-> atelectasisShould this be performed [...] Gaudencio Barrett Verified Date/Time: 2018 08:20:57 ReadingLocation: [facility] B1 C013X Ortho Consult Reading Room TROPONIN [id number] 08:03:00 Test Item Value Reference Range Comments TROPONIN I (BEAKER) (test xdgj=763) 0.01 ng/mL 0.00-0.03 Troponin I (TnI) levels [...] acute neurological disease, and persistent tachyarrhythmia.BLOOD GAS, [id number] 07:42:00 Test Item Value Reference Range Comments PH ARTERIAL (BEAKER) (test dtux=468) 7.42 7.35-7.45 PCO2 ARTERIAL (BEAKER) (test syrg=327) 40 mmHg 35-45 PO2 ARTERIAL (BEAKER) (test dfho=519) 77 mmHg 80-90 O2 SATURATION ARTERIAL (BEAKER) (test yoxl=260) 95.8 % 96.0-97.0 HCO3 ARTERIAL (BEAKER) (test ssci=127) 25 mmol/L 21-29 BASE EXCESS ARTERIAL (BEAKER) (test yaub=299) 0.9 mmol/L -2.0-3.0 PATIENT TEMPERATURE (BEAKER) (test fula=9500) 36.8 C FIO2 (BEAKER) (test dohs=9076) 44.0 % POCT-GLUCOSE [id number] 06:03:00 Test Item Value Reference Range Comments POC-GLUCOSE METER (BEAKER) 120 mg/dL 70-110 TESTED AT [address] (test ejyl=6817) [facility] [address] CBC W/PLT COUNT & AUTO [id number] 04:00:00 Test Item Value Reference Range Comments WHITE BLOOD CELL COUNT (BEAKER) (test enuw=137) 20.3 K/ L 3.5-10.5 RED BLOOD CELL COUNT (BEAKER) (test zpay=870) 3.66 M/ L 4.63-6.08 HEMOGLOBIN (BEAKER) (test orgj=353) 11.3 GM/DL 13.7-17.5 HEMATOCRIT (BEAKER) (test vgvr=010) 36.0 % 40.1-51.0 MEAN CORPUSCULAR VOLUME (BEAKER) (test kbbe=353) 98.4 fL 79.0-92.2 MEAN CORPUSCULAR HEMOGLOBIN (BEAKER) (test 30.9 pg 25.7-32.2 snrx=923) MEAN CORPUSCULAR HEMOGLOBIN CONC (BEAKER) (test 31.4 GM/DL 32.3-36.5 vhkp=003) RED CELL DISTRIBUTION WIDTH (BEAKER) (test 15.0 % 11.6-14.4 hfqk=897) PLATELET COUNT (BEAKER) (test mbid=998) 319 K/CU MM 150-450 MEAN PLATELET VOLUME (BEAKER) (test zcvq=690) 10.5 fL 9.4-12.4 NUCLEATED RED BLOOD CELLS (BEAKER) (test 0 /100 WBC 0-0 mytt=660) NEUTROPHILS RELATIVE PERCENT (BEAKER) (test 86 % ggwx=583) LYMPHOCYTES RELATIVE PERCENT (BEAKER) (test 4 % dyrt=722) MONOCYTES RELATIVE PERCENT (BEAKER) (test 9 % lvsh=650) EOSINOPHILS RELATIVE PERCENT (BEAKER) (test 0 % mqzu=142) BASOPHILS RELATIVE PERCENT (BEAKER) (test 0 % epex=277) NEUTROPHILS ABSOLUTE COUNT (BEAKER) (test 17.32 K/ L 1.78-5.38 lrek=879) LYMPHOCYTES ABSOLUTE COUNT (BEAKER) (test 0.72 K/ L 1.32-3.57 kjjj=067) MONOCYTES ABSOLUTE COUNT (BEAKER) (test 1.82 K/ L 0.30-0.82 zhkd=008) EOSINOPHILS ABSOLUTE COUNT (BEAKER) (test 0.07 K/ L 0.04-0.54 lkeb=031) BASOPHILS ABSOLUTE COUNT (BEAKER) (test 0.07 K/ L 0.01-0.08 eftb=894) IMMATURE GRANULOCYTES-RELATIVE PERCENT (BEAKER) 1 % 0-1 (test cneg=2130) [id number] 03:38:00 Test Item Value Reference Range Comments MAGNESIUM (BEAKER) (test 2.0 mg/dL 1.6-2.6 Specimen slightly hemolyzed ilxs=757) [id number] 03:38:00 Test Item Value Reference Range Comments PHOSPHORUS (BEAKER) (test 3.6 mg/dL 2.3-4.7 Specimen slightly hemolyzed ovey=541) BASIC METABOLIC [id number] 03:38:00 Test Item Value Reference Range Comments SODIUM (BEAKER) (test 140 meq/L 136-145 skpy=033) POTASSIUM (BEAKER) (test 4.0 meq/L 3.5-5.1 Specimen slightly gxzj=984) hemolyzed CHLORIDE (BEAKER) (test 105 meq/L 98-107 xyhl=156) CO2 (BEAKER) (test 25 meq/L 22-29 hmmj=710) BLOOD UREA NITROGEN 5 mg/dL 7-21 (BEAKER) (test jgjw=075) CREATININE (BEAKER) (test 0.73 mg/dL 0.57-1.25 Specimen slightly tazl=192) hemolyzed GLUCOSE RANDOM (BEAKER) 129 mg/dL 70-105 (test wxyt=562) CALCIUM (BEAKER) (test 8.5 mg/dL 8.4-10.2 wmwm=986) EGFR (BEAKER) (test 115 mL/min/1.73 sq m ESTIMATED GFR IS NOT hbmk=3580) ACCURATE CREATININE CLEARANCE IN PREDICTING GLOMERULAR FILTRATION RATE. ESTIMATED GFR IS NOT APPLICABLE FOR DIALYSIS PATIENTS. [id number] 03:38:00 Test Item Value Reference Range Comments ALBUMIN (BEAKER) (test 3.9 g/dL 3.5-5.0 Specimen slightly hemolyzed ohhg=9415) [id number] 03:31:00 Test Item Value Reference Range Comments PROTIME (BEAKER) (test xxqz=119) 15.5 seconds 11.7-14.7 INR (BEAKER) (test nasx=285) 1.2 <=5.9 PARTIAL THROMBOPLASTIN TIME (BEAKER) (test 34.5 seconds 22.5-36.0 dzrt=848) RECOMMENDED COUMADIN/WARFARIN INR THERAPY RANGESSTANDARD DOSE: 2.0 - 3.0 Includes: PROPHYLAXIS forvenous thrombosis, systemic embolization; TREATMENT for venous thrombosis and/or pulmonary embolus.HIGH RISK: Target INR is 2.5-3.5 for patients with mechanical heart valves.POCT-GLUCOSE [id number] 23:39:00 Test Item Value Reference Range Comments POC-GLUCOSE METER (BEAKER) 121 mg/dL 70-110 TESTED AT [address] (test qtce=9551) [facility] [address] POCT-GLUCOSE [id number] 18:25:00 Test Item Value Reference Range Comments POC-GLUCOSE METER (BEAKER) 112 mg/dL 70-110 TESTED AT [address] (test edlq=7252) [facility] [address] T4, [id number] 12:56:00 Test Item Value Reference Range Comments FREE T4 (BEAKER) (test tvax=364) 1.17 ng/dL 0.70-1.48 POCT-GLUCOSE [id number] 11:35:00 Test Item Value Reference Range Comments POC-GLUCOSE METER (BEAKER) 143 mg/dL 70-110 TESTED AT [facility] [address] (test oamk=2738) [place] [address] CBC W/PLT COUNT & AUTO [id number] 07:50:00 Test Item Value Reference Range Comments WHITE BLOOD CELL COUNT (BEAKER) (test erjr=355) 24.1 K/ L 3.5-10.5 RED BLOOD CELL COUNT (BEAKER) (test pqsb=580) 3.75 M/ L 4.63-6.08 HEMOGLOBIN (BEAKER) (test bede=901) 11.7 GM/DL 13.7-17.5 HEMATOCRIT (BEAKER) (test bntv=774) 35.7 % 40.1-51.0 MEAN CORPUSCULAR VOLUME (BEAKER) (test ptdm=619) 95.2 fL 79.0-92.2 MEAN CORPUSCULAR HEMOGLOBIN (BEAKER) (test 31.2 pg 25.7-32.2 locx=430) MEAN CORPUSCULAR HEMOGLOBIN CONC (BEAKER) (test 32.8 GM/DL 32.3-36.5 fics=702) RED CELL DISTRIBUTION WIDTH (BEAKER) (test 14.8 % 11.6-14.4 jcir=860) PLATELET COUNT (BEAKER) (test ozea=951) 334 K/CU MM 150-450 MEAN PLATELET VOLUME (BEAKER) (test hydk=238) 10.3 fL 9.4-12.4 NUCLEATED RED BLOOD CELLS (BEAKER) (test 0 /100 WBC 0-0 ejep=403) (CELLAVISION MANUAL DIFF)2018-07-15 07:50:00 Test Item Value Reference Range Comments NEUTROPHILS - REL (CELLAVISION)(BEAKER) (test 87 % hdsa=1468) LYMPHOCYTES - REL (CELLAVISION)(BEAKER) (test 3 % gilt=4316) MONOCYTES - REL (CELLAVISION)(BEAKER) (test 5 % kngs=4745) METAMYELOCYTES - REL (CELLAVISION)(BEAKER) (test 1 % 0-0 wxll=5071) MYELOCYTES - REL (CELLAVISION)(BEAKER) (test 1 % 0-0 vutm=2672) BANDS - REL (CELLAVISION)(BEAKER) (test 2 % 0-10 ryoy=2198) ATYPICAL LYMPHOCYTES - REL (CELLAVISION)(BEAKER) 1 % 0-0 (test qfcg=8337) NEUTROPHILS - ABS (CELLAVISION)(BEAKER) (test 20.97 K/ul 1.78-5.38 suxe=5772) LYMPHOCYTES - ABS (CELLAVISION)(BEAKER) (test 0.72 K/ul 1.32-3.57 nswq=9854) MONOCYTES - ABS (CELLAVISION)(BEAKER) (test 1.21 K/uL 0.30-0.82 wfvr=7424) METAMYELOCYTES - ABS (CELLAVISION)(BEAKER) (test 0.24 K/uL 0.00-0.00 vmuc=5993) MYELOCYTES-ABS (CELLAVISION)(BEAKER) (test 0.24 K/uL 0.00-0.00 vjax=7308) BANDS - ABS (CELLAVISION)(BEAKER) (test 0.48 K/uL 0.00-0.80 wigi=5328) ATYPICAL LYMPHOCYTES - ABS (CELLAVISION)(BEAKER) 0.24 K/uL 0.00-0.00 (test pvom=3435) TOTAL COUNTED (BEAKER) (test frqj=1453) 100 WBC MORPHOLOGY (BEAKER) (test xkqf=240) Normal PLT MORPHOLOGY (BEAKER) (test icmc=149) Normal ANISOCYTOSIS (BEAKER) (test uiny=352) 2+ moderate MICROCYTES (BEAKER) (test brgy=965) 2+ moderate ARTIFACT (CELLAVISION)(BEAKER) (test ftuf=3050) Present PLATELET CONCENTRATION (CELLAVISION)(BEAKER) Adequate (test koaf=2829) Received comment: User comments: Slide comments:RAD, CHEST, 1 VIEW, NON [id number] -04-16 05:48:00Reason for exam:->postop laryngectomy with trachShould [...] [place] Verified Date/Time: 2018 05:48:22 Reading Location: [address] Neuro Reading Room POCT-GLUCOSE [id number] 05:47:00 Test Item Value Reference Range Comments POC-GLUCOSE METER (BEAKER) 177 mg/dL 70-110 TESTED AT [facility] [address] [facility] (test fwnt=9957) [facility] [address] [id number] 04:29:00 Test Item Value Reference Range Comments PHOSPHORUS (BEAKER) (test ipzt=988) 2.3 mg/dL 2.3-4.7 [id number] 04:29:00 Test Item Value Reference Range Comments MAGNESIUM (BEAKER) (test lvnh=783) 1.7 mg/dL 1.6-2.6 BASIC METABOLIC [id number] 04:29:00 Test Item Value Reference Range Comments SODIUM (BEAKER) (test 136 meq/L 136-145 kgwe=374) POTASSIUM (BEAKER) (test 3.7 meq/L 3.5-5.1 mqnr=322) CHLORIDE (BEAKER) (test 103 meq/L 98-107 xglb=116) CO2 (BEAKER) (test 24 meq/L 22-29 tkdo=548) BLOOD UREA NITROGEN 7 mg/dL 7-21 (BEAKER) (test hpbk=611) CREATININE (BEAKER) (test 0.73 mg/dL 0.57-1.25 nrwq=508) GLUCOSE RANDOM (BEAKER) 179 mg/dL 70-105 (test sfnh=153) CALCIUM (BEAKER) (test 9.2 mg/dL 8.4-10.2 swnn=239) EGFR (BEAKER) (test 115 mL/min/1.73 sq m ESTIMATED GFR IS NOT ppgk=4744) ACCURATE CREATININE CLEARANCE IN PREDICTING GLOMERULAR FILTRATION RATE. ESTIMATED GFR IS NOT APPLICABLE FOR DIALYSIS PATIENTS. [id number] 04:29:00 Test Item Value Reference Range Comments ALBUMIN (BEAKER) (test irej=5353) 3.8 g/dL 3.5-5.0 [id number] 04:22:00 Test Item Value Reference Range Comments PROTIME (BEAKER) (test ettr=533) 14.5 seconds 11.7-14.7 INR (BEAKER) (test xiln=989) 1.1 <=5.9 PARTIAL THROMBOPLASTIN TIME (BEAKER) (test 42.0 seconds 22.5-36.0 vazr=017) RECOMMENDED COUMADIN/WARFARIN INR THERAPY RANGESSTANDARD DOSE: 2.0 - 3.0 Includes: PROPHYLAXIS forvenous thrombosis, systemic embolization; TREATMENT for venous thrombosis and/or pulmonary embolus.HIGH RISK: Target INR is 2.5-3.5 for patients with mechanical heart valves.POCT-GLUCOSE [id number] 23:55:00 Test Item Value Reference Range Comments POC-GLUCOSE METER (BEAKER) 159 mg/dL 70-110 TESTED AT [facility] [address] [place] [address] (test jtzc=4288) [facility] [address] [id number] 19:41:00 Test Item Value Reference Range Comments THYROID STIMULATING HORMONE (BEAKER) (test 6.82 uIU/mL 0.35-4.94 wrjc=449) [id number] 19:26:00 Test Item Value Reference Range Comments PHOSPHORUS (BEAKER) (test famc=548) 4.9 mg/dL 2.3-4.7 Postop labsPostop labsPostop labsPostop [id number] 19:26:00 Test Item Value Reference Range Comments MAGNESIUM (BEAKER) (test byvm=584) 1.9 mg/dL 1.6-2.6 Postop labsPostop labsPostop labsPostop labsBASIC METABOLIC [id number] 19: 26:00 Test Item Value Reference Range Comments SODIUM (BEAKER) (test 140 meq/L 136-145 apyh=660) POTASSIUM (BEAKER) (test 4.6 meq/L 3.5-5.1 ytcy=268) CHLORIDE (BEAKER) (test 107 meq/L 98-107 ormy=887) CO2 (BEAKER) (test 26 meq/L 22-29 lciq=198) BLOOD UREA NITROGEN 8 mg/dL 7-21 (BEAKER) (test cpxl=485) CREATININE (BEAKER) (test 0.77 mg/dL 0.57-1.25 btpn=926) GLUCOSE RANDOM (BEAKER) 109 mg/dL 70-105 (test satn=154) CALCIUM (BEAKER) (test 9.4 mg/dL 8.4-10.2 sfbz=111) EGFR (BEAKER) (test 108 mL/min/1.73 sq m ESTIMATED GFR IS NOT zlcb=5004) ACCURATE CREATININE CLEARANCE IN PREDICTING GLOMERULAR FILTRATION RATE. ESTIMATED GFR IS NOT APPLICABLE FOR DIALYSIS PATIENTS. Postop labsPostop labsPostop labsPostop [id number] 19:26:00 Test Item Value Reference Range Comments ALBUMIN (BEAKER) (test pvdi=1248) 3.9 g/dL 3.5-5.0 Postop labsPostop labsPostop labsPostop [id number] 19:24:00 Test Item Value Reference Range Comments PREALBUMIN (BEAKER) (test 17 mg/dL 14-45 Specimen slightly hemolyzed ufph=676) PTH, [id number] 19:23:00 Test Item Value Reference Range Comments PARATHYROID HORMONE INTACT (BEAKER) (test 16.1 pg/mL 8.5-72.5 ojuh=246) Postop LabsCBC W/PLT COUNT & AUTO [id number] 18:58:00 Test Item Value Reference Range Comments WHITE BLOOD CELL COUNT (BEAKER) (test mbow=351) 13.3 K/ L 3.5-10.5 RED BLOOD CELL COUNT (BEAKER) (test gtrl=795) 3.50 M/ L 4.63-6.08 HEMOGLOBIN (BEAKER) (test qhah=387) 10.8 GM/DL 13.7-17.5 HEMATOCRIT (BEAKER) (test blhe=302) 34.1 % 40.1-51.0 MEAN CORPUSCULAR VOLUME (BEAKER) (test oxlg=341) 97.4 fL 79.0-92.2 MEAN CORPUSCULAR HEMOGLOBIN (BEAKER) (test 30.9 pg 25.7-32.2 aixr=579) MEAN CORPUSCULAR HEMOGLOBIN CONC (BEAKER) (test 31.7 GM/DL 32.3-36.5 plrr=267) RED CELL DISTRIBUTION WIDTH (BEAKER) (test 15.1 % 11.6-14.4 mybk=653) PLATELET COUNT (BEAKER) (test lcts=666) 278 K/CU MM 150-450 MEAN PLATELET VOLUME (BEAKER) (test bztv=739) 9.5 fL 9.4-12.4 NUCLEATED RED BLOOD CELLS (BEAKER) (test 0 /100 WBC 0-0 kkwl=261) NEUTROPHILS RELATIVE PERCENT (BEAKER) (test 84 % shbn=355) LYMPHOCYTES RELATIVE PERCENT (BEAKER) (test 6 % bxdb=859) MONOCYTES RELATIVE PERCENT (BEAKER) (test 8 % oeqt=021) EOSINOPHILS RELATIVE PERCENT (BEAKER) (test 1 % kfyz=326) BASOPHILS RELATIVE PERCENT (BEAKER) (test 0 % pirk=983) NEUTROPHILS ABSOLUTE COUNT (BEAKER) (test 11.15 K/ L 1.78-5.38 vmml=959) LYMPHOCYTES ABSOLUTE COUNT (BEAKER) (test 0.73 K/ L 1.32-3.57 vkfg=348) MONOCYTES ABSOLUTE COUNT (BEAKER) (test 1.04 K/ L 0.30-0.82 rkcb=352) EOSINOPHILS ABSOLUTE COUNT (BEAKER) (test 0.15 K/ L 0.04-0.54 kzwh=304) BASOPHILS ABSOLUTE COUNT (BEAKER) (test 0.05 K/ L 0.01-0.08 qnee=325) IMMATURE GRANULOCYTES-RELATIVE PERCENT (BEAKER) 1 % 0-1 (test byhq=1396) BLOOD GAS, [id number] 15:31:00 Test Item Value Reference Range Comments PH ARTERIAL (BEAKER) (test jrio=552) 7.37 7.35-7.45 PCO2 ARTERIAL (BEAKER) (test rgss=808) 46 mmHg 35-45 PO2 ARTERIAL (BEAKER) (test poea=221) 273 mmHg 80-90 O2 SATURATION ARTERIAL (BEAKER) (test ynse=682) 99.6 % 96.0-97.0 HCO3 ARTERIAL (BEAKER) (test mqqs=104) 26 mmol/L 21-29 BASE EXCESS ARTERIAL (BEAKER) (test cfqt=673) 0.4 mmol/L -2.0-3.0 PATIENT TEMPERATURE (BEAKER) (test wric=7251) 37.0 C FIO2 (BEAKER) (test lfda=0820) 100.0 % HGB/HCT (H&H) - STAT [id number] 15:31:00 Test Item Value Reference Range Comments HEMOGLOBIN (BEAKER) (test mcvt=305) 11.0 g/dL 13.0-16.8 HEMATOCRIT (BEAKER) (test tgvc=237) 32.0 % 40.0-50.0 GLUCOSE-STAT [id number] 15:30:00 Test Item Value Reference Range Comments GLUCOSE RANDOM (BEAKER) (test dpgc=663) 87 mg/dL 70-110 SODIUM NA-STAT [id number] 15:30:00 Test Item Value Reference Range Comments SODIUM (BEAKER) (test pccu=370) 137 meq/L 135-148 POTASSIUM-STAT [id number] 15:30:00 Test Item Value Reference Range Comments POTASSIUM (BEAKER) (test pdqc=189) 4.0 meq/L 3.6-5.5 ANG, INSERTION G TUBE, W/ [id number] 14:18:00Reason for exam:-> Gastrostomy tubeFINAL REPORT Fluoroscopic guided gastrostomy tube placement, 07/11/2018. Clinical History: Laryngeal cancer. Modality: Fluoroscopy. Chicken Fancier: Jack Lima MD. Facilities And Grounds Director: Dilip Vivas MD. Conscious sedation: 2.0 mg [...] After the tract was dilated, a 14 Turkmen catheter was placed into the stomach. The [...] Verified Date/Time: 07/11/2018 14:18 :50 Reading Location: [place] [address] [facility] Reading Room Electronically signed by: JACK Rose 07/11/2018 02:18 PMTSH/FREE T4 IF [id number] 13:24:00 Test Item Value Reference Range Comments THYROID STIMULATING HORMONE (BEAKER) (test 2.37 uIU/mL 0.35-4.94 owcv=132) RAD, CHEST, PA OR AP, 1 [id number] 11:03:00Reason for exam:->coughShould this be performed at the bedside?->NoFINAL REPORT AP chest HISTORY: Cough. COMPARISON: 06/17/2018. IMPRESSION: Tracheostomy tube present. Heart size normal. Lungs clear without effusion or pneumothorax. Intact skeleton. Signed: Ashok Whitaker Verified Date/Time: 2018 11:03:24 Reading Location: [address] Radiology Reading Room 11:03 AMCOMPREHENSIVE METABOLIC [id number] 10:52:00 Test Item Value Reference Range Comments TOTAL PROTEIN (BEAKER) 7.2 gm/dL 6.0-8.3 (test ialh=293) ALBUMIN (BEAKER) (test 3.9 g/dL 3.5-5.0 bhfi=5042) ALKALINE PHOSPHATASE 98 U/L 40-150 (BEAKER) (test omsk=716) BILIRUBIN TOTAL (BEAKER) 0.4 mg/dL 0.2-1.2 (test osqk=922) SODIUM (BEAKER) (test 141 meq/L 136-145 wbfy=196) POTASSIUM (BEAKER) (test 4.4 meq/L 3.5-5.1 vdji=200) CHLORIDE (BEAKER) (test 109 meq/L 98-107 itmg=778) CO2 (BEAKER) (test 24 meq/L 22-29 rkaz=317) BLOOD UREA NITROGEN 14 mg/dL 7-21 (BEAKER) (test frjr=647) CREATININE (BEAKER) (test 0.78 mg/dL 0.57-1.25 aaiy=268) GLUCOSE RANDOM (BEAKER) 107 mg/dL 70-105 (test xnlu=671) CALCIUM (BEAKER) (test 9.4 mg/dL 8.4-10.2 mpke=431) AST (SGOT) (BEAKER) (test 17 U/L 5-34 gzut=387) ALT (SGPT) (BEAKER) (test 17 U/L 6-55 nwcs=070) EGFR (BEAKER) (test 106 mL/min/1.73 sq ESTIMATED GFR IS NOT dvoy=7674) m ACCURATE CREATININE CLEARANCE IN PREDICTING GLOMERULAR FILTRATION RATE. ESTIMATED GFR IS NOT APPLICABLE FOR DIALYSIS PATIENTS. CBC W/PLT COUNT & AUTO [id number] 10:32:00 Test Item Value Reference Range Comments WHITE BLOOD CELL COUNT (BEAKER) (test joqn=911) 10.8 K/ L 3.5-10.5 RED BLOOD CELL COUNT (BEAKER) (test eoip=989) 4.08 M/ L 4.63-6.08 HEMOGLOBIN (BEAKER) (test vguf=548) 12.6 GM/DL 13.7-17.5 HEMATOCRIT (BEAKER) (test enjo=378) 39.4 % 40.1-51.0 MEAN CORPUSCULAR VOLUME (BEAKER) (test ehly=017) 96.6 fL 79.0-92.2 MEAN CORPUSCULAR HEMOGLOBIN (BEAKER) (test 30.9 pg 25.7-32.2 uiuw=056) MEAN CORPUSCULAR HEMOGLOBIN CONC (BEAKER) (test 32.0 GM/DL 32.3-36.5 zbur=985) RED CELL DISTRIBUTION WIDTH (BEAKER) (test 15.3 % 11.6-14.4 pxyl=685) PLATELET COUNT (BEAKER) (test mvxy=812) 321 K/CU MM 150-450 MEAN PLATELET VOLUME (BEAKER) (test dywc=745) 9.9 fL 9.4-12.4 NUCLEATED RED BLOOD CELLS (BEAKER) (test 0 /100 WBC 0-0 rmxs=387) NEUTROPHILS RELATIVE PERCENT (BEAKER) (test 76 % sbtn=179) LYMPHOCYTES RELATIVE PERCENT (BEAKER) (test 7 % rgpz=016) MONOCYTES RELATIVE PERCENT (BEAKER) (test 10 % bfdr=835) EOSINOPHILS RELATIVE PERCENT (BEAKER) (test 2 % acfc=417) BASOPHILS RELATIVE PERCENT (BEAKER) (test 1 % hzul=658) NEUTROPHILS ABSOLUTE COUNT (BEAKER) (test 8.18 K/ L 1.78-5.38 yndr=908) LYMPHOCYTES ABSOLUTE COUNT (BEAKER) (test 0.79 K/ L 1.32-3.57 hlnu=436) MONOCYTES ABSOLUTE COUNT (BEAKER) (test 1.04 K/ L 0.30-0.82 ilni=540) EOSINOPHILS ABSOLUTE COUNT (BEAKER) (test 0.16 K/ L 0.04-0.54 qkgz=562) BASOPHILS ABSOLUTE COUNT (BEAKER) (test 0.13 K/ L 0.01-0.08 fiku=799) IMMATURE GRANULOCYTES-RELATIVE PERCENT (BEAKER) 5 % 0-1 (test onpn=1740) [id number] 10:30:00 Test Item Value Reference Range Comments PROTIME (BEAKER) (test moel=047) 14.6 seconds 11.7-14.7 INR (BEAKER) (test vney=727) 1.1 <=5.9 PARTIAL THROMBOPLASTIN TIME (BEAKER) (test 34.3 seconds 22.5-36.0 unfu=335) RECOMMENDED COUMADIN/WARFARIN INR THERAPY RANGESSTANDARD DOSE: 2.0 - 3.0 Includes: PROPHYLAXIS forvenous thrombosis, systemic embolization; TREATMENT for venous thrombosis and/or pulmonary embolus.HIGH RISK: Target INR is 2.5-3.5 for patients with mechanical heart valves.BLOOD [id number] 20:01:00 Test Item Value Reference Range Comments CULTURE (BEAKER) (test mzqa=3835) No growth in 5 days BLOOD [id number] 20:01:00 Test Item Value Reference Range Comments CULTURE (BEAKER) (test bgth=8722) No growth in 5 days CBC W/PLT COUNT & AUTO [id number] 12:54:00 Test Item Value Reference Range Comments WHITE BLOOD CELL COUNT (BEAKER) (test rhqi=980) 6.6 K/ L 3.5-10.5 RED BLOOD CELL COUNT (BEAKER) (test ktva=403) 3.84 M/ L 4.63-6.08 HEMOGLOBIN (BEAKER) (test ywlb=966) 11.9 GM/DL 13.7-17.5 HEMATOCRIT (BEAKER) (test jrxz=244) 37.1 % 40.1-51.0 MEAN CORPUSCULAR VOLUME (BEAKER) (test qttz=240) 96.6 fL 79.0-92.2 MEAN CORPUSCULAR HEMOGLOBIN (BEAKER) (test 31.0 pg 25.7-32.2 pqys=590) MEAN CORPUSCULAR HEMOGLOBIN CONC (BEAKER) (test 32.1 GM/DL 32.3-36.5 ottn=026) RED CELL DISTRIBUTION WIDTH (BEAKER) (test 15.1 % 11.6-14.4 irtb=033) PLATELET COUNT (BEAKER) (test vegw=219) 282 K/CU MM 150-450 MEAN PLATELET VOLUME (BEAKER) (test abdo=222) 10.3 fL 9.4-12.4 NUCLEATED RED BLOOD CELLS (BEAKER) (test 0 /100 WBC 0-0 jmhu=799) (CELLAVISION MANUAL DIFF)2018-06-21 12:54:00 Test Item Value Reference Range Comments NEUTROPHILS - REL (CELLAVISION)(BEAKER) (test 63 % zeax=2158) LYMPHOCYTES - REL (CELLAVISION)(BEAKER) (test 10 % sxvg=1757) MONOCYTES - REL (CELLAVISION)(BEAKER) (test 8 % gfue=3914) EOSINOPHILS - REL (CELLAVISION)(BEAKER) (test 2 % rsbj=6393) BASOPHILS - REL (CELLAVISION)(BEAKER) (test 2 % hhqa=8519) METAMYELOCYTES - REL (CELLAVISION)(BEAKER) (test 2 % 0-0 fret=4476) BANDS - REL (CELLAVISION)(BEAKER) (test grtl=6621) 12 % 0-10 NEUTROPHILS - ABS (CELLAVISION)(BEAKER) (test 4.16 K/ul 1.78-5.38 hnwf=6450) LYMPHOCYTES - ABS (CELLAVISION)(BEAKER) (test 0.66 K/ul 1.32-3.57 duhl=9314) MONOCYTES - ABS (CELLAVISION)(BEAKER) (test 0.53 K/uL 0.30-0.82 qeqq=5975) EOSINOPHILS - ABS (CELLAVISION)(BEAKER) (test 0.13 K/uL 0.04-0.54 neul=7882) BASOPHILS - ABS (CELLAVISION)(BEAKER) (test 0.13 K/uL 0.01-0.08 jjgx=8319) METAMYELOCYTES - ABS (CELLAVISION)(BEAKER) (test 0.13 K/uL 0.00-0.00 olbw=6223) BANDS - ABS (CELLAVISION)(BEAKER) (test ocqc=4739) 0.79 K/uL 0.00-0.80 TOTAL COUNTED (BEAKER) (test tucn=2761) 100 WBC MORPHOLOGY (BEAKER) (test dcui=479) Normal GIANT PLATELETS (BEAKER) (test cgxi=692) Present ANISOCYTOSIS (BEAKER) (test ogtm=507) 1+ few ARTIFACT (CELLAVISION)(BEAKER) (test qryu=2377) Present PLATELET CONCENTRATION (CELLAVISION)(BEAKER) (test Adequate gzkd=7203) Received comment: User comments: Slide comments:BASIC METABOLIC [id number] 06:44:00 Test Item Value Reference Range Comments SODIUM (BEAKER) (test 137 meq/L 136-145 lnok=643) POTASSIUM (BEAKER) (test 4.0 meq/L 3.5-5.1 rpwx=559) CHLORIDE (BEAKER) (test 102 meq/L 98-107 jzti=938) CO2 (BEAKER) (test 27 meq/L 22-29 vtkz=496) BLOOD UREA NITROGEN 9 mg/dL 7-21 (BEAKER) (test lrzr=421) CREATININE (BEAKER) (test 0.66 mg/dL 0.57-1.25 gqph=721) GLUCOSE RANDOM (BEAKER) 99 mg/dL 70-105 (test wutc=555) CALCIUM (BEAKER) (test 9.0 mg/dL 8.4-10.2 sglt=312) EGFR (BEAKER) (test 129 mL/min/1.73 sq m ESTIMATED GFR IS NOT kohh=4280) ACCURATE CREATININE CLEARANCE IN PREDICTING GLOMERULAR FILTRATION RATE. ESTIMATED GFR IS NOT APPLICABLE FOR DIALYSIS PATIENTS. BLOOD [id number] 12:01:00 Test Item Value Reference Range Comments CULTURE (BEAKER) (test wpdm=2596) No growth in 5 days CBC W/PLT COUNT & AUTO [id number] 11:06:00 Test Item Value Reference Range Comments WHITE BLOOD CELL COUNT (BEAKER) (test mzoj=487) 6.7 K/ L 3.5-10.5 RED BLOOD CELL COUNT (BEAKER) (test vmab=634) 3.88 M/ L 4.63-6.08 HEMOGLOBIN (BEAKER) (test zdtx=905) 12.4 GM/DL 13.7-17.5 HEMATOCRIT (BEAKER) (test rmef=863) 36.8 % 40.1-51.0 MEAN CORPUSCULAR VOLUME (BEAKER) (test hbac=825) 94.8 fL 79.0-92.2 MEAN CORPUSCULAR HEMOGLOBIN (BEAKER) (test 32.0 pg 25.7-32.2 snxq=518) MEAN CORPUSCULAR HEMOGLOBIN CONC (BEAKER) (test 33.7 GM/DL 32.3-36.5 gxzc=934) RED CELL DISTRIBUTION WIDTH (BEAKER) (test 15.3 % 11.6-14.4 rryw=359) PLATELET COUNT (BEAKER) (test jsio=480) 218 K/CU MM 150-450 MEAN PLATELET VOLUME (BEAKER) (test lxdy=186) 10.5 fL 9.4-12.4 NUCLEATED RED BLOOD CELLS (BEAKER) (test 0 /100 WBC 0-0 aqph=459) (CELLAVISION MANUAL DIFF)2018-06-20 11:06:00 Test Item Value Reference Range Comments NEUTROPHILS - REL (CELLAVISION)(BEAKER) (test 77 % cwaq=5758) LYMPHOCYTES - REL (CELLAVISION)(BEAKER) (test 6 % llkv=3517) MONOCYTES - REL (CELLAVISION)(BEAKER) (test 3 % ltjg=0899) EOSINOPHILS - REL (CELLAVISION)(BEAKER) (test 2 % yzeq=4405) BANDS - REL (CELLAVISION)(BEAKER) (test pwbd=5838) 10 % 0-10 ATYPICAL LYMPHOCYTES - REL (CELLAVISION)(BEAKER) 2 % 0-0 (test liha=3894) NEUTROPHILS - ABS (CELLAVISION)(BEAKER) (test 5.16 K/ul 1.78-5.38 qyts=1115) LYMPHOCYTES - ABS (CELLAVISION)(BEAKER) (test 0.40 K/ul 1.32-3.57 auyr=5158) MONOCYTES - ABS (CELLAVISION)(BEAKER) (test 0.20 K/uL 0.30-0.82 btzl=8921) EOSINOPHILS - ABS (CELLAVISION)(BEAKER) (test 0.13 K/uL 0.04-0.54 qbqq=8368) BANDS - ABS (CELLAVISION)(BEAKER) (test tlbv=1753) 0.67 K/uL 0.00-0.80 ATYPICAL LYMPHOCYTES - ABS (CELLAVISION)(BEAKER) 0.13 K/uL 0.00-0.00 (test tfjy=8323) TOTAL COUNTED (BEAKER) (test ggmz=3587) 100 CLUMPED PLATELETS (BEAKER) (test vbin=506) Present SMUDGE CELLS (BEAKER) (test mkuy=1976) Present GIANT PLATELETS (BEAKER) (test kuog=237) Present TOXIC GRANULATION (BEAKER) (test eszr=772) Present ANISOCYTOSIS (BEAKER) (test wsql=919) 1+ few PLATELET CONCENTRATION (CELLAVISION)(BEAKER) (test Adequate dyri=8902) Received comment: User comments: Slide comments:BASIC METABOLIC [id number] 08:11:00 Test Item Value Reference Range Comments SODIUM (BEAKER) (test 134 meq/L 136-145 fzww=203) POTASSIUM (BEAKER) (test 3.8 meq/L 3.5-5.1 hqqt=465) CHLORIDE (BEAKER) (test 97 meq/L 98-107 icck=063) CO2 (BEAKER) (test 29 meq/L 22-29 pdzf=216) BLOOD UREA NITROGEN 8 mg/dL 7-21 (BEAKER) (test ttvm=283) CREATININE (BEAKER) (test 0.65 mg/dL 0.57-1.25 ofda=335) GLUCOSE RANDOM (BEAKER) 93 mg/dL 70-105 (test imxy=161) CALCIUM (BEAKER) (test 9.0 mg/dL 8.4-10.2 zszl=105) EGFR (BEAKER) (test 132 mL/min/1.73 sq m ESTIMATED GFR IS NOT tdxl=7592) ACCURATE CREATININE CLEARANCE IN PREDICTING GLOMERULAR FILTRATION RATE. ESTIMATED GFR IS NOT APPLICABLE FOR DIALYSIS PATIENTS. BLOOD [id number] 08:01:00 Test Item Value Reference Range Comments CULTURE (BEAKER) (test hdsh=8146) No growth in 5 days BLOOD [id number] 02:00:00 Test Item Value Reference Range Comments CULTURE (BEAKER) (test loyk=3460) No growth in 5 days BLOOD [id number] 02:00:00 Test Item Value Reference Range Comments CULTURE (BEAKER) (test uqgc=1752) No growth in 5 days CBC W/PLT COUNT & AUTO [id number] 15:32:00 Test Item Value Reference Range Comments WHITE BLOOD CELL COUNT (BEAKER) (test nwtr=691) 6.4 K/ L 3.5-10.5 RED BLOOD CELL COUNT (BEAKER) (test xnte=517) 4.16 M/ L 4.63-6.08 HEMOGLOBIN (BEAKER) (test bpqy=589) 13.2 GM/DL 13.7-17.5 HEMATOCRIT (BEAKER) (test pimd=659) 39.5 % 40.1-51.0 MEAN CORPUSCULAR VOLUME (BEAKER) (test jsuh=210) 95.0 fL 79.0-92.2 MEAN CORPUSCULAR HEMOGLOBIN (BEAKER) (test 31.7 pg 25.7-32.2 ypfa=261) MEAN CORPUSCULAR HEMOGLOBIN CONC (BEAKER) (test 33.4 GM/DL 32.3-36.5 hqqx=964) RED CELL DISTRIBUTION WIDTH (BEAKER) (test 15.7 % 11.6-14.4 oksi=556) PLATELET COUNT (BEAKER) (test iqes=086) 148 K/CU MM 150-450 MEAN PLATELET VOLUME (BEAKER) (test itvp=075) 10.7 fL 9.4-12.4 NUCLEATED RED BLOOD CELLS (BEAKER) (test 0 /100 WBC 0-0 tley=413) (CELLAVISION MANUAL DIFF)2018-06-19 15:32:00 Test Item Value Reference Range Comments NEUTROPHILS - REL (CELLAVISION)(BEAKER) (test 73 % hdjl=1442) LYMPHOCYTES - REL (CELLAVISION)(BEAKER) (test 3 % rxqo=2093) MONOCYTES - REL (CELLAVISION)(BEAKER) (test 3 % mxzm=5189) METAMYELOCYTES - REL (CELLAVISION)(BEAKER) (test 2 % 0-0 ewll=5123) MYELOCYTES - REL (CELLAVISION)(BEAKER) (test 1 % 0-0 surx=6974) BANDS - REL (CELLAVISION)(BEAKER) (test 16 % 0-10 bgyy=4316) NEUTROPHILS - ABS (CELLAVISION)(BEAKER) (test 4.67 K/ul 1.78-5.38 whii=2971) LYMPHOCYTES - ABS (CELLAVISION)(BEAKER) (test 0.19 K/ul 1.32-3.57 alwe=6560) MONOCYTES - ABS (CELLAVISION)(BEAKER) (test 0.19 K/uL 0.30-0.82 kiaq=3077) METAMYELOCYTES - ABS (CELLAVISION)(BEAKER) (test 0.13 K/uL 0.00-0.00 qekz=9678) MYELOCYTES-ABS (CELLAVISION)(BEAKER) (test 0.06 K/uL 0.00-0.00 aagt=8243) BANDS - ABS (CELLAVISION)(BEAKER) (test 1.02 K/uL 0.00-0.80 cywz=7286) TOTAL COUNTED (BEAKER) (test diyo=1153) 100 GIANT PLATELETS (BEAKER) (test xmsj=140) Present TOXIC GRANULATION (BEAKER) (test iyvf=605) Present PLASMACYTOID LYMPHS(BEAKER) (test xucy=1981) Present POLYCHROMATOPHILLIC RBCS(BEAKER) (test zmkt=885) 1+ few ANISOCYTOSIS (BEAKER) (test vpir=665) 2+ moderate MICROCYTES (BEAKER) (test qwmh=983) 2+ moderate POIKILOCYTES (BEAKER) (test yagd=274) 1+ few SPHEROCYTES (BEAKER) (test coln=447) 1+ few ARTIFACT (CELLAVISION)(BEAKER) (test cmha=8075) Present HELMET CELLS (CELLAVISION)(BEAKER) (test 1+ few ziwd=7185) PLATELET CONCENTRATION (CELLAVISION)(BEAKER) Decreased (test tggi=5266) Received comment: User comments: Slide comments:BASIC METABOLIC [id number] 07:38:00 Test Item Value Reference Range Comments SODIUM (BEAKER) (test 132 meq/L 136-145 jfsh=756) POTASSIUM (BEAKER) (test 3.5 meq/L 3.5-5.1 csfb=760) CHLORIDE (BEAKER) (test 95 meq/L 98-107 vrei=624) CO2 (BEAKER) (test 27 meq/L 22-29 fklj=148) BLOOD UREA NITROGEN 11 mg/dL 7-21 (BEAKER) (test pjwg=689) CREATININE (BEAKER) (test 0.61 mg/dL 0.57-1.25 tcrj=876) GLUCOSE RANDOM (BEAKER) 94 mg/dL 70-105 (test ailc=303) CALCIUM (BEAKER) (test 8.8 mg/dL 8.4-10.2 cchl=292) EGFR (BEAKER) (test 142 mL/min/1.73 sq m ESTIMATED GFR IS NOT zoud=7372) ACCURATE CREATININE CLEARANCE IN PREDICTING GLOMERULAR FILTRATION RATE. ESTIMATED GFR IS NOT APPLICABLE FOR DIALYSIS PATIENTS. CBC W/PLT COUNT & AUTO [id number] 12:37:00 Test Item Value Reference Range Comments WHITE BLOOD CELL COUNT (BEAKER) (test oijz=316) 8.5 K/ L 3.5-10.5 RED BLOOD CELL COUNT (BEAKER) (test ilpx=641) 4.16 M/ L 4.63-6.08 HEMOGLOBIN (BEAKER) (test xqbr=895) 13.0 GM/DL 13.7-17.5 HEMATOCRIT (BEAKER) (test hkpx=792) 38.5 % 40.1-51.0 MEAN CORPUSCULAR VOLUME (BEAKER) (test jefp=426) 92.5 fL 79.0-92.2 MEAN CORPUSCULAR HEMOGLOBIN (BEAKER) (test 31.3 pg 25.7-32.2 tulm=548) MEAN CORPUSCULAR HEMOGLOBIN CONC (BEAKER) (test 33.8 GM/DL 32.3-36.5 fmyw=059) RED CELL DISTRIBUTION WIDTH (BEAKER) (test 15.2 % 11.6-14.4 tjss=543) PLATELET COUNT (BEAKER) (test uiex=961) 145 K/CU MM 150-450 MEAN PLATELET VOLUME (BEAKER) (test mkas=615) 10.3 fL 9.4-12.4 NUCLEATED RED BLOOD CELLS (BEAKER) (test 0 /100 WBC 0-0 wsyg=002) (CELLAVISION MANUAL DIFF)2018-06-18 12:37:00 Test Item Value Reference Range Comments NEUTROPHILS - REL (CELLAVISION)(BEAKER) (test 72 % nxmb=9743) LYMPHOCYTES - REL (CELLAVISION)(BEAKER) (test 2 % yiqi=0361) BANDS - REL (CELLAVISION)(BEAKER) (test voek=8573) 25 % 0-10 ATYPICAL LYMPHOCYTES - REL (CELLAVISION)(BEAKER) 1 % 0-0 (test itqe=4730) NEUTROPHILS - ABS (CELLAVISION)(BEAKER) (test 6.12 K/ul 1.78-5.38 bvgu=5444) LYMPHOCYTES - ABS (CELLAVISION)(BEAKER) (test 0.17 K/ul 1.32-3.57 pmpx=2966) BANDS - ABS (CELLAVISION)(BEAKER) (test akre=9977) 2.13 K/uL 0.00-0.80 ATYPICAL LYMPHOCYTES - ABS (CELLAVISION)(BEAKER) 0.09 K/uL 0.00-0.00 (test pqat=6075) TOTAL COUNTED (BEAKER) (test xcgw=5265) 100 RBC MORPHOLOGY (BEAKER) (test lcdm=109) Normal SMUDGE CELLS (BEAKER) (test jvgx=7851) Present GIANT PLATELETS (BEAKER) (test ogwl=154) Present TOXIC GRANULATION (BEAKER) (test gebf=556) Present PLATELET CONCENTRATION (CELLAVISION)(BEAKER) (test Decreased wghh=2248) Received comment: User comments: Slide comments:BASIC METABOLIC [id number] 12:04:00 Test Item Value Reference Range Comments SODIUM (BEAKER) (test 130 meq/L 136-145 toik=681) POTASSIUM (BEAKER) (test 3.1 meq/L 3.5-5.1 rvrv=321) CHLORIDE (BEAKER) (test 93 meq/L 98-107 bsad=745) CO2 (BEAKER) (test 27 meq/L 22-29 puyv=954) BLOOD UREA NITROGEN < mg/dL 7-21 (BEAKER) (test adqd=581) CREATININE (BEAKER) (test 0.66 mg/dL 0.57-1.25 hvvp=050) GLUCOSE RANDOM (BEAKER) 157 mg/dL 70-105 (test blvx=644) CALCIUM (BEAKER) (test 8.6 mg/dL 8.4-10.2 cqyo=577) EGFR (BEAKER) (test 129 mL/min/1.73 sq m ESTIMATED GFR IS NOT spgm=0066) ACCURATE CREATININE CLEARANCE IN PREDICTING GLOMERULAR FILTRATION RATE. ESTIMATED GFR IS NOT APPLICABLE FOR DIALYSIS PATIENTS. VANCOMYCIN LEVEL, [id number] 12:02:00 Test Item Value Reference Range Comments VANCOMYCIN RANDOM (BEAKER) (test hykz=851) 1.3 ug/mL Reference Range: No [id number] 12:00:00 Test Item Value Reference Range Comments MAGNESIUM (BEAKER) (test owfz=020) 2.2 mg/dL 1.6-2.6 SPUTUM CULTURE + GRAM [id number] 11:45:00 Test Item Value Reference Range Comments CULTURE (BEAKER) (test PSEUDOMONAS AERUGINOSA 4+ Pseudomonas gijl=5676) aeruginosa Amikacin (test code=1) Susceptible 0-16 , [...] CULTURE (BEAKER) (test PSEUDOMONAS AERUGINOSA 4+ Pseudomonas ageg=6823) aeruginosa Amikacin (test code=1) Susceptible 0-16 , [...] GRAM STAIN RESULT 1+ WBCs (BEAKER) (test sgop=8314) GRAM STAIN RESULT 15-20 epithelial cells (BEAKER) (test rsng=802993) GRAM STAIN RESULT <1+ gram negative (BEAKER) (test coccobacilli kubd=186065) GRAM STAIN RESULT <1+ gram positive (BEAKER) (test cocci in pairs jfoe=598699) GRAM STAIN RESULT <1+ yeast with (BEAKER) (test pseudohyphae mapm=730183) GRAM STAIN RESULT 1+ gram variable rods (BEAKER) (test bkag=733360) 1+ Normal respiratory maximo presentC W/PLT COUNT & AUTO [id number] 18:36:00 Test Item Value Reference Range Comments WHITE BLOOD CELL COUNT (BEAKER) (test bsth=864) 7.3 K/ L 3.5-10.5 RED BLOOD CELL COUNT (BEAKER) (test fkpb=792) 4.53 M/ L 4.63-6.08 HEMOGLOBIN (BEAKER) (test xjnp=531) 14.4 GM/DL 13.7-17.5 HEMATOCRIT (BEAKER) (test maxw=851) 42.2 % 40.1-51.0 MEAN CORPUSCULAR VOLUME (BEAKER) (test rmyn=545) 93.2 fL 79.0-92.2 MEAN CORPUSCULAR HEMOGLOBIN (BEAKER) (test 31.8 pg 25.7-32.2 jhzm=650) MEAN CORPUSCULAR HEMOGLOBIN CONC (BEAKER) (test 34.1 GM/DL 32.3-36.5 fwib=232) RED CELL DISTRIBUTION WIDTH (BEAKER) (test 15.0 % 11.6-14.4 rfii=199) PLATELET COUNT (BEAKER) (test hadb=228) 170 K/CU MM 150-450 MEAN PLATELET VOLUME (BEAKER) (test qgut=154) 10.1 fL 9.4-12.4 NUCLEATED RED BLOOD CELLS (BEAKER) (test 0 /100 WBC 0-0 mubo=656) NEUTROPHILS RELATIVE PERCENT (BEAKER) (test 92 % iwws=955) LYMPHOCYTES RELATIVE PERCENT (BEAKER) (test 4 % mujc=865) MONOCYTES RELATIVE PERCENT (BEAKER) (test 2 % ksrq=284) EOSINOPHILS RELATIVE PERCENT (BEAKER) (test 0 % hdcv=350) BASOPHILS RELATIVE PERCENT (BEAKER) (test 0 % cwlr=780) NEUTROPHILS ABSOLUTE COUNT (BEAKER) (test 6.75 K/ L 1.78-5.38 vesv=115) LYMPHOCYTES ABSOLUTE COUNT (BEAKER) (test 0.27 K/ L 1.32-3.57 ymix=529) MONOCYTES ABSOLUTE COUNT (BEAKER) (test 0.15 K/ L 0.30-0.82 gwdx=089) EOSINOPHILS ABSOLUTE COUNT (BEAKER) (test 0.00 K/ L 0.04-0.54 tjol=130) BASOPHILS ABSOLUTE COUNT (BEAKER) (test 0.02 K/ L 0.01-0.08 pods=479) IMMATURE GRANULOCYTES-RELATIVE PERCENT (BEAKER) 2 % 0-1 (test rjak=3915) [id number] 14:37:00 Test Item Value Reference Range Comments PROCALCITONIN (BEAKER) (test thgz=2737) 0.08 ng/mL <0.05 SEPSIS RISK (ng/mL)Low: 0.05-0.50Intermediate: 0.51-2.00High: & gt;=2.01LACTIC ACID, [id number] 13:43:00 Test Item Value Reference Range Comments LACTATE BLOOD VENOUS (2) 2.4 mmol/L 0.5-2.2 Specimen slightly hemolyzed (BEAKER) (test wkaa=9592) TISSUE [id number] 13:24:00Surgical Pathology Report Case: [id number] Authorizing Provider: Jennifer Fraire MD Collected: 06/09/2018 1735 Ordering Location: [address] Received: 06/10/2018 0811 Cardiovascular Pathologist: Jennifer Hull MD Specimen: SoftTissue, Other, LEFT SUPRAGLOTTIC MASS LEFT SUPRAGLOTTIC MASS, LARYNGOSCOPIC BIOPSY: - ATYPICAL SQUAMOUS PROLIFERATION (SEE COMMENT) Signing Pathologist Direct Phone Line: [phone] These are superficial fragments with hyperplasia, keratosis [...] representative of the entirelesion; Clinical correlation is recommended.74990; 31930; 05074Nbllmeuir mass Left subglottic massThe specimen is received in a fluidless container labeled with patient information and labeled "left supraglottic mass" consisting of four fragments of red soft tissue ranging from 0.1 to 0.4 cm, submitted entirely A1. CG/pl PERFORMEDThe interpretation of this case included the use of immunohistochemistry or special stains. p53 and AE1/RF4Orgemosiszxijapochox technical testing was performed at [facility] Pathology Laboratory where it was [...] ESOPH, SWALLOW FUNCTION , WITH CINE OR [id number] 12:08:00Reason for exam:->silent aspiration evaluationFINAL REPORT Modified [...] MDReport Verified Date/Time: 06/17/2018 12:08:38 Reading Location: [address] Consult Reading Room [id number] 09:44:00 Test Item Value Reference Range Comments MAGNESIUM (BEAKER) (test qluq=857) 1.9 mg/dL 1.6-2.6 [id number] 09:44:00 Test Item Value Reference Range Comments PHOSPHORUS (BEAKER) (test ozcx=912) 2.9 mg/dL 2.3-4.7 RAD, CHEST, 1 VIEW, NON [id number] 08:16:00Reason for exam:->SOBShould this be performed at [...] MDReport Verified Date/Time: 06/17/2018 08:16:46 Reading Location: [facility] Radiology Reading Room BASIC METABOLIC [id number] 06:25:00 Test Item Value Reference Range Comments SODIUM (BEAKER) (test 134 meq/L 136-145 eefz=115) POTASSIUM (BEAKER) (test 3.7 meq/L 3.5-5.1 iuwc=284) CHLORIDE (BEAKER) (test 95 meq/L 98-107 hkxd=574) CO2 (BEAKER) (test 31 meq/L 22-29 wulg=614) BLOOD UREA NITROGEN 15 mg/dL 7-21 (BEAKER) (test aqgu=645) CREATININE (BEAKER) (test 0.77 mg/dL 0.57-1.25 urcr=338) GLUCOSE RANDOM (BEAKER) 89 mg/dL 70-105 (test mxjr=534) CALCIUM (BEAKER) (test 8.9 mg/dL 8.4-10.2 aokj=714) EGFR (BEAKER) (test 108 mL/min/1.73 sq m ESTIMATED GFR IS NOT jxds=4860) ACCURATE CREATININE CLEARANCE IN PREDICTING GLOMERULAR FILTRATION RATE. ESTIMATED GFR IS NOT APPLICABLE FOR DIALYSIS PATIENTS. VANCOMYCIN LEVEL, [id number] 06:25:00 Test Item Value Reference Range Comments VANCOMYCIN RANDOM (BEAKER) (test lfjq=756) 9.6 ug/mL Reference Range: No NormalsDraw 30 min prior to scheduled dose, HOLD if level & gt; 20 mcg/mL, informMD.RESPIRATORY PANEL [id number] 12:23:00 Test Item Value Reference Range Comments HUMAN METAPNEUMOVIRUS Not detected Not detected, (BEAKER) (test mdir=4058) Equivocal RHINOVIRUS (BEAKER) (test Not detected Not detected, nuey=3865) Equivocal INFLUENZA A (BEAKER) (test Not detected Not detected, hpbx=3565) Equivocal INFLUENZA A (NO SUBTYPE) Not detected, (test vqpb=1182) Equivocal INFLUENZA A SUBTYPE H1 Not detected, (BEAKER) (test yizt=5167) Equivocal INFLUENZA A SUBTYPE H3 Not detected, (BEAKER) (test sygc=0396) Equivocal INFLUENZA A SUBTYPE H1-2009 Not detected, (BEAKER) (test btnf=3567) Equivocal INFLUENZA B (BEAKER) (test Not detected Not detected, zbam=4676) Equivocal RESPIRATORY SYNCYTIAL VIRUS Not detected Not detected, (BEAKER) (test abcr=0751) Equivocal PARAINFLUENZA VIRUS 1 Not detected Not detected, (BEAKER) (test vzuf=4003) Equivocal PARAINFLUENZA VIRUS 2 Not detected Not detected, (BEAKER) (test oarg=2632) Equivocal PARAINFLUENZA VIRUS 3 Not detected Not detected, (BEAKER) (test sjig=7508) Equivocal PARAINFLUENZA VIRUS 4 Not detected Not detected, (BEAKER) (test poih=1576) Equivocal ADENOVIRUS (BEAKER) (test Not detected Not detected, ljup=9391) Equivocal CORONAVIRUS 229E (BEAKER) Detected Not detected, Droplet isolation. (test uual=3493) Equivocal Consider stopping antibiotics. CORONAVIRUS HKU1 (BEAKER) Not detected Not detected, (test bhan=2066) Equivocal CORONAVIRUS NL63 (BEAKER) Not detected Not detected, (test cgzs=6996) Equivocal CORONAVIRUS OC43 (BEAKER) Not detected Not detected, (test ebhy=7006) Equivocal BORDETELLA PERTUSSIS (BEAKER) Not detected Not detected, (test znep=2221) Equivocal CHLAMYDOPHILA PNEUMONIAE Not detected Not detected, (BEAKER) (test lvub=7961) Equivocal MYCOPLASMA PNEUMONIAE Not detected Not detected, (BEAKER) (test oogd=1870) Equivocal Other viruses and bacteria not targeted by this PCR panel cannot be excluded; therefore clinical correlation and follow up of serology, culture results, and other molecular studies is required. The results are not intended to be used as the sole means for clinical diagnosis or patient management decisions. This sample was tested at the [facility] using the [employer]Array Respiratory Panel. It is FDA cleared and has been verified and approved by the [facility] for clinical use on nasal swab specimens. It is not FDA-cleared for use on bronchial wash/lavage samples. However, for this sample type, validation was performed and test characteristics were determined and approved, by [facility] for clinical use under the Clinical Laboratory Improvement Amendments (CLIA) of 1988 requirements. Therefore, FDA clearance isnot required. This laboratory is CLIA-certified and [employer] (CAP)-accredited to perform high complexity testing.CBC W/PLT COUNT & AUTO [id number] 11:27:00 Test Item Value Reference Range Comments WHITE BLOOD CELL COUNT (BEAKER) (test lezs=856) 10.5 K/ L 3.5-10.5 RED BLOOD CELL COUNT (BEAKER) (test qvjb=409) 4.20 M/ L 4.63-6.08 HEMOGLOBIN (BEAKER) (test tzmq=208) 13.6 GM/DL 13.7-17.5 HEMATOCRIT (BEAKER) (test ijxm=245) 40.5 % 40.1-51.0 MEAN CORPUSCULAR VOLUME (BEAKER) (test fwee=318) 96.4 fL 79.0-92.2 MEAN CORPUSCULAR HEMOGLOBIN (BEAKER) (test 32.4 pg 25.7-32.2 uusz=393) MEAN CORPUSCULAR HEMOGLOBIN CONC (BEAKER) (test 33.6 GM/DL 32.3-36.5 nsyo=575) RED CELL DISTRIBUTION WIDTH (BEAKER) (test 15.1 % 11.6-14.4 puuf=517) PLATELET COUNT (BEAKER) (test wmdg=200) 142 K/CU MM 150-450 MEAN PLATELET VOLUME (BEAKER) (test naje=550) 10.3 fL 9.4-12.4 NUCLEATED RED BLOOD CELLS (BEAKER) (test 0 /100 WBC 0-0 kbsw=458) (CELLAVISION MANUAL DIFF)2018-06-16 11:27:00 Test Item Value Reference Range Comments NEUTROPHILS - REL (CELLAVISION)(BEAKER) (test 51 % oioh=3304) LYMPHOCYTES - REL (CELLAVISION)(BEAKER) (test 1 % qfsr=5697) MONOCYTES - REL (CELLAVISION)(BEAKER) (test 2 % aitc=4885) MYELOCYTES - REL (CELLAVISION)(BEAKER) (test 1 % 0-0 jyly=1471) PROMYELOCYTES - REL (CELLAVSION)(BEAKER) (test 1 % 0-0 dygu=1149) BANDS - REL (CELLAVISION)(BEAKER) (test 44 % 0-10 lmmx=2580) NEUTROPHILS - ABS (CELLAVISION)(BEAKER) (test 5.36 K/ul 1.78-5.38 clzw=9750) LYMPHOCYTES - ABS (CELLAVISION)(BEAKER) (test 0.11 K/ul 1.32-3.57 fkdl=5938) MONOCYTES - ABS (CELLAVISION)(BEAKER) (test 0.21 K/uL 0.30-0.82 haqk=0089) MYELOCYTES-ABS (CELLAVISION)(BEAKER) (test 0.11 K/uL 0.00-0.00 szqu=1113) PROMYELOCYTES - ABS (CELLAVISION)(BEAKER) (test 0.11 K/uL 0.00-0.00 bdhv=6809) BANDS - ABS (CELLAVISION)(BEAKER) (test 4.62 K/uL 0.00-0.80 zcpz=0297) TOTAL COUNTED (BEAKER) (test ftle=2031) 100 MANUAL NRBC PER 100 CELLS (BEAKER) (test 1 /100 WBC 0-0 tsxl=4017) SMUDGE CELLS (BEAKER) (test rcvp=1318) Present GIANT PLATELETS (BEAKER) (test khmg=188) Present POLYCHROMATOPHILLIC RBCS(BEAKER) (test qefq=467) 1+ few ANISOCYTOSIS (BEAKER) (test deoi=799) 1+ few MICROCYTES (BEAKER) (test uxyp=779) 1+ few POIKILOCYTES (BEAKER) (test prlt=121) 1+ few ARTIFACT (CELLAVISION)(BEAKER) (test swtx=9000) Present PLATELET CONCENTRATION (CELLAVISION)(BEAKER) Adequate (test rqkn=8852) Received comment: User comments: Slide comments:CT, CHEST WITH IV CONTRAST- PE TEST [id number] 09:53:00Worsening hypoxia s/o diagnosis and excision of [...] MDReport Verified Date/Time: 06/16/2018 09:53:01 Reading Location: [facility] Diagnostic Imaging Reading Room - [place] [address] RAD, CHEST, 1 VIEW, NON [id number] 07:36:00Reason for exam:->recent pneumothorax, new trachShould [...] MDReport Verified Date/Time: 06/16/2018 07:36:27 Reading Location: [facility] Radiology Reading Room 07: 36 AMBASIC METABOLIC [id number] 05:45:00 Test Item Value Reference Range Comments SODIUM (BEAKER) (test 132 meq/L 136-145 apmx=489) POTASSIUM (BEAKER) (test 3.9 meq/L 3.5-5.1 zhkn=421) CHLORIDE (BEAKER) (test 92 meq/L 98-107 fibt=961) CO2 (BEAKER) (test 27 meq/L 22-29 eolh=447) BLOOD UREA NITROGEN 13 mg/dL 7-21 (BEAKER) (test keua=395) CREATININE (BEAKER) (test 0.83 mg/dL 0.57-1.25 vxlj=424) GLUCOSE RANDOM (BEAKER) 129 mg/dL 70-105 (test dxys=686) CALCIUM (BEAKER) (test 9.5 mg/dL 8.4-10.2 neev=773) EGFR (BEAKER) (test 99 mL/min/1.73 sq m ESTIMATED GFR IS NOT uafh=8352) ACCURATE CREATININE CLEARANCE IN PREDICTING GLOMERULAR FILTRATION RATE. ESTIMATED GFR IS NOT APPLICABLE FOR DIALYSIS PATIENTS. [id number] 18:12:00 Test Item Value Reference Range Comments MAGNESIUM (BEAKER) (test 2.0 mg/dL 1.6-2.6 Specimen slightly hemolyzed hasn=106) BASIC METABOLIC [id number] 18:12:00 Test Item Value Reference Range Comments SODIUM (BEAKER) (test 130 meq/L 136-145 xytz=960) POTASSIUM (BEAKER) (test 3.7 meq/L 3.5-5.1 Specimen slightly mafo=706) hemolyzed CHLORIDE (BEAKER) (test 91 meq/L 98-107 gqna=049) CO2 (BEAKER) (test 27 meq/L 22-29 jkdg=413) BLOOD UREA NITROGEN 14 mg/dL 7-21 (BEAKER) (test okux=598) CREATININE (BEAKER) (test 0.78 mg/dL 0.57-1.25 Specimen slightly sqxt=874) hemolyzed GLUCOSE RANDOM (BEAKER) 85 mg/dL 70-105 (test gliy=485) CALCIUM (BEAKER) (test 8.9 mg/dL 8.4-10.2 kjex=407) EGFR (BEAKER) (test 107 mL/min/1.73 sq m ESTIMATED GFR IS NOT fvuq=6130) ACCURATE CREATININE CLEARANCE IN PREDICTING GLOMERULAR FILTRATION RATE. ESTIMATED GFR IS NOT APPLICABLE FOR DIALYSIS PATIENTS. RAD, CHEST, 1 VIEW, NON [id number] 13:18:00Reason for exam:->recent pneumothorax, new trachShould this [...] Additional findings: None. Signed: JR Humberto, Jimmie [facility] Verified Date/Time: 06/15/2018 13:18:45 Reading Location: [address] Neuro Reading Room BLOOD GAS, [id number] 11:41:00 Test Item Value Reference Range Comments PH ARTERIAL (BEAKER) (test rhwt=499) 7.50 7.35-7.45 PCO2 ARTERIAL (BEAKER) (test ztxa=557) 40 mmHg 35-45 PO2 ARTERIAL (BEAKER) (test rbsl=834) 335 mmHg 80-90 O2 SATURATION ARTERIAL (BEAKER) (test foca=101) 99.8 % 96.0-97.0 HCO3 ARTERIAL (BEAKER) (test vcnz=301) 29 mmol/L 21-29 BASE EXCESS ARTERIAL (BEAKER) (test sung=841) 6.5 mmol/L -2.0-3.0 PATIENT TEMPERATURE (BEAKER) (test tmoh=5219) 39.3 C FIO2 (BEAKER) (test fqzu=4634) 100.0 % Obtain one hour post initaition of vent support \\[id number]\\[id number] [id number] 09: 49:00 Test Item Value Reference Range Comments TROPONIN I (BEAKER) (test fmmy=750) < ng/mL 0.00-0.03 Troponin I (TnI) levels [...] Range Comments B-TYPE NATRIURETIC PEPTIDE (BEAKER) (test kiag=349) 66 pg/mL 0-100 [id number] 09:29:00 Test Item Value Reference Range Comments D-DIMER QUANTITATIVE (BEAKER) (test ckot=928) 1.59 MG/L FEU <0.50 Intended Use: The D-Dimer Assay can be used to aid in the diagnosis of Deep Vein Thrombosis (DVT) and Pulmonary Embolism Disease (PED).In patients with low pre-test probability, various studies concerning STA Liatest D-dimer test have reported that with a cutoff value of 0.50 MG/L FEU, the Negative Predictive Value (NPV) regarding the exclusion of thrombosis is within 95-100% range.[id number] 09:12:00 Test Item Value Reference Range Comments FIBRINOGEN LEVEL (BEAKER) (test kcmk=391) 621 mg/dl 225-434 [id number] 09:10:00 Test Item Value Reference Range Comments PHOSPHORUS (BEAKER) (test ksoh=231) 2.8 mg/dL 2.3-4.7 [id number] 09:10:00 Test Item Value Reference Range Comments MAGNESIUM (BEAKER) (test xisj=659) 1.9 mg/dL 1.6-2.6 COMPREHENSIVE METABOLIC [id number] 09:10:00 Test Item Value Reference Range Comments TOTAL PROTEIN (BEAKER) 5.9 gm/dL 6.0-8.3 (test koux=750) ALBUMIN (BEAKER) (test 3.3 g/dL 3.5-5.0 ycee=1092) ALKALINE PHOSPHATASE 73 U/L 40-150 (BEAKER) (test xomk=923) BILIRUBIN TOTAL (BEAKER) 1.3 mg/dL 0.2-1.2 (test plsh=404) SODIUM (BEAKER) (test 127 meq/L 136-145 lfqe=097) POTASSIUM (BEAKER) (test 3.8 meq/L 3.5-5.1 fmwv=659) CHLORIDE (BEAKER) (test 89 meq/L 98-107 pxcs=675) CO2 (BEAKER) (test 28 meq/L 22-29 hvya=811) BLOOD UREA NITROGEN 14 mg/dL 7-21 (BEAKER) (test qhal=995) CREATININE (BEAKER) (test 0.78 mg/dL 0.57-1.25 woxf=321) GLUCOSE RANDOM (BEAKER) 87 mg/dL 70-105 (test gzli=650) CALCIUM (BEAKER) (test 8.8 mg/dL 8.4-10.2 jjdv=960) AST (SGOT) (BEAKER) (test 23 U/L 5-34 qyag=891) ALT (SGPT) (BEAKER) (test 26 U/L 6-55 gzft=662) EGFR (BEAKER) (test 107 mL/min/1.73 sq ESTIMATED GFR IS NOT nvsq=1030) m ACCURATE CREATININE CLEARANCE IN PREDICTING GLOMERULAR FILTRATION RATE. ESTIMATED GFR IS NOT APPLICABLE FOR DIALYSIS PATIENTS. [id number] 09:01:00 Test Item Value Reference Range Comments PROTIME (BEAKER) (test gktr=026) 15.2 seconds 11.7-14.7 INR (BEAKER) (test ccij=448) 1.2 <=5.9 PARTIAL THROMBOPLASTIN TIME (BEAKER) (test 31.6 seconds 22.5-36.0 vovp=648) RECOMMENDED COUMADIN/WARFARIN INR THERAPY RANGESSTANDARD DOSE: 2.0 - 3.0 Includes: PROPHYLAXIS forvenous thrombosis, systemic embolization; TREATMENT for venous thrombosis and/or pulmonary embolus.HIGH RISK: Target INR is 2.5-3.5 for patients with mechanical heart valves.LACTIC ACID, [id number] 08:51: 00 Test Item Value Reference Range Comments LACTATE BLOOD ARTERIAL (2) 0.8 mmol/L 0.5-2.2 Specimen slightly hemolyzed (BEAKER) (test jnwe=8899) BLOOD GAS, [id number] 08:40:00 Test Item Value Reference Range Comments PH ARTERIAL (BEAKER) (test mpnp=279) 7.51 7.35-7.45 PCO2 ARTERIAL (BEAKER) (test pxzr=189) 40 mmHg 35-45 PO2 ARTERIAL (BEAKER) (test uhvs=744) 58 mmHg 80-90 O2 SATURATION ARTERIAL (BEAKER) (test vcao=921) 90.0 % 96.0-97.0 HCO3 ARTERIAL (BEAKER) (test zwle=811) 31 mmol/L 21-29 BASE EXCESS ARTERIAL (BEAKER) (test kqzs=780) 8.3 mmol/L -2.0-3.0 PATIENT TEMPERATURE (BEAKER) (test czdz=1491) 39.1 C FIO2 (BEAKER) (test ytbk=7246) 80.0 % [id number] 08:00:00 Test Item Value Reference Range Comments MAGNESIUM (BEAKER) (test ausy=428) 1.8 mg/dL 1.6-2.6 Add onCBC W/PLT COUNT & AUTO [id number] 06:45:00 Test Item Value Reference Range Comments WHITE BLOOD CELL COUNT (BEAKER) (test ylho=921) 10.2 K/ L 3.5-10.5 RED BLOOD CELL COUNT (BEAKER) (test kylx=481) 4.12 M/ L 4.63-6.08 HEMOGLOBIN (BEAKER) (test wwgp=095) 13.2 GM/DL 13.7-17.5 HEMATOCRIT (BEAKER) (test jcde=027) 40.8 % 40.1-51.0 MEAN CORPUSCULAR VOLUME (BEAKER) (test mafl=772) 99.0 fL 79.0-92.2 MEAN CORPUSCULAR HEMOGLOBIN (BEAKER) (test 32.0 pg 25.7-32.2 wcju=727) MEAN CORPUSCULAR HEMOGLOBIN CONC (BEAKER) (test 32.4 GM/DL 32.3-36.5 yktm=334) RED CELL DISTRIBUTION WIDTH (BEAKER) (test 15.2 % 11.6-14.4 ogdd=441) PLATELET COUNT (BEAKER) (test lgku=458) 146 K/CU MM 150-450 MEAN PLATELET VOLUME (BEAKER) (test tcak=842) 9.9 fL 9.4-12.4 NUCLEATED RED BLOOD CELLS (BEAKER) (test 0 /100 WBC 0-0 wjfd=989) NEUTROPHILS RELATIVE PERCENT (BEAKER) (test 92 % jaqy=146) LYMPHOCYTES RELATIVE PERCENT (BEAKER) (test 3 % qlzu=439) MONOCYTES RELATIVE PERCENT (BEAKER) (test 2 % gvlr=004) EOSINOPHILS RELATIVE PERCENT (BEAKER) (test 0 % cyzo=254) BASOPHILS RELATIVE PERCENT (BEAKER) (test 0 % uwvd=742) NEUTROPHILS ABSOLUTE COUNT (BEAKER) (test 9.38 K/ L 1.78-5.38 ydxc=522) LYMPHOCYTES ABSOLUTE COUNT (BEAKER) (test 0.30 K/ L 1.32-3.57 dwvh=079) MONOCYTES ABSOLUTE COUNT (BEAKER) (test 0.23 K/ L 0.30-0.82 kcto=733) EOSINOPHILS ABSOLUTE COUNT (BEAKER) (test 0.00 K/ L 0.04-0.54 lgmy=401) BASOPHILS ABSOLUTE COUNT (BEAKER) (test 0.03 K/ L 0.01-0.08 iimy=587) IMMATURE GRANULOCYTES-RELATIVE PERCENT (BEAKER) 3 % 0-1 (test cfok=3558) BASIC METABOLIC [id number] 06:35:00 Test Item Value Reference Range Comments SODIUM (BEAKER) (test 127 meq/L 136-145 mbyy=428) POTASSIUM (BEAKER) (test 3.8 meq/L 3.5-5.1 ysdz=508) CHLORIDE (BEAKER) (test 91 meq/L 98-107 sudb=126) CO2 (BEAKER) (test 27 meq/L 22-29 mhgb=429) BLOOD UREA NITROGEN 12 mg/dL 7-21 (BEAKER) (test bhwv=417) CREATININE (BEAKER) (test 0.75 mg/dL 0.57-1.25 dzsd=276) GLUCOSE RANDOM (BEAKER) 88 mg/dL 70-105 (test adtm=543) CALCIUM (BEAKER) (test 8.6 mg/dL 8.4-10.2 wmza=841) EGFR (BEAKER) (test 112 mL/min/1.73 sq m ESTIMATED GFR IS NOT biti=4903) ACCURATE CREATININE CLEARANCE IN PREDICTING GLOMERULAR FILTRATION RATE. ESTIMATED GFR IS NOT APPLICABLE FOR DIALYSIS PATIENTS. RAD, CHEST, 1 VIEW, NON [id number] 05:10:00Reason for exam:->sob, tachypneaShould this be performed [...] [place] Verified Date/Time: 06/15/2018 05:10:33 Reading Location: [address] Reading Room POCT-LACTIC ACID, [id number] 04:30:00 Test Item Value Reference Range Comments POC-LACTIC ACID, VENOUS 1.1 mmol/L 0.9-1.7 TESTED AT [facility] [address] [facility] (BEAKER) (test iymz=6316) [facility] [address] URINALYSIS W/ REFLEX URINE [id number] 20:03:00 Test Item Value Reference Range Comments COLOR (BEAKER) (test eouw=799) Light Yellow CLARITY (BEAKER) (test nakg=995) Hazy SPECIFIC GRAVITY UA (BEAKER) (test lqep=289) 1.014 1.001-1.035 PH UA (BEAKER) (test qubs=256) 7.5 5.0-8.0 PROTEIN UA (BEAKER) (test xurr=164) Negative Negative GLUCOSE UA (BEAKER) (test izef=994) Negative Negative KETONES UA (BEAKER) (test glyh=242) Negative Negative BILIRUBIN UA (BEAKER) (test ried=308) Negative Negative BLOOD UA (BEAKER) (test tvls=390) Negative Negative NITRITE UA (BEAKER) (test iudw=460) Negative Negative LEUKOCYTE ESTERASE UA (BEAKER) (test kqvc=218) Negative Negative UROBILINOGEN UA (BEAKER) (test ctne=030) 0.2 mg/dL 0.2-1.0 RBC UA (BEAKER) (test hjov=480) 0 /HPF WBC UA (BEAKER) (test acba=762) 0 /HPF BACTERIA (BEAKER) (test oqcl=230) Few MUCUS (BEAKER) (test jecs=1326) Rare HYALINE CASTS (BEAKER) (test kegm=020) 3 /LPF SOURCE(BEAKER) (test sjxr=9302) RAD, CHEST, 1 VIEW, NON [id number] 19:10:00Reason for exam:->SUSUPECTED INFECTIONShould this be performed [...] Verified Date/Time: 06/14/2018 19:10: 10 Reading Location: [address] Reading Room CBC W/PLT COUNT & AUTO [id number] 04:36:00 Test Item Value Reference Range Comments WHITE BLOOD CELL COUNT (BEAKER) (test gmjt=991) 11.4 K/ L 3.5-10.5 RED BLOOD CELL COUNT (BEAKER) (test txkx=784) 4.37 M/ L 4.63-6.08 HEMOGLOBIN (BEAKER) (test lizl=199) 14.1 GM/DL 13.7-17.5 HEMATOCRIT (BEAKER) (test axya=016) 44.0 % 40.1-51.0 MEAN CORPUSCULAR VOLUME (BEAKER) (test vqqn=660) 100.7 fL 79.0-92.2 MEAN CORPUSCULAR HEMOGLOBIN (BEAKER) (test 32.3 pg 25.7-32.2 yquv=428) MEAN CORPUSCULAR HEMOGLOBIN CONC (BEAKER) (test 32.0 GM/DL 32.3-36.5 xbjs=988) RED CELL DISTRIBUTION WIDTH (BEAKER) (test 14.4 % 11.6-14.4 paqv=902) PLATELET COUNT (BEAKER) (test owqm=766) 188 K/CU MM 150-450 MEAN PLATELET VOLUME (BEAKER) (test unrc=679) 10.7 fL 9.4-12.4 NUCLEATED RED BLOOD CELLS (BEAKER) (test 0 /100 WBC 0-0 dcpt=927) NEUTROPHILS RELATIVE PERCENT (BEAKER) (test 95 % nwgo=276) LYMPHOCYTES RELATIVE PERCENT (BEAKER) (test 1 % mujh=214) MONOCYTES RELATIVE PERCENT (BEAKER) (test 2 % novz=906) EOSINOPHILS RELATIVE PERCENT (BEAKER) (test 0 % fcgx=375) BASOPHILS RELATIVE PERCENT (BEAKER) (test 0 % wrbl=863) NEUTROPHILS ABSOLUTE COUNT (BEAKER) (test 10.81 K/ L 1.78-5.38 hfge=534) LYMPHOCYTES ABSOLUTE COUNT (BEAKER) (test 0.16 K/ L 1.32-3.57 qtsu=015) MONOCYTES ABSOLUTE COUNT (BEAKER) (test 0.26 K/ L 0.30-0.82 rzwu=923) EOSINOPHILS ABSOLUTE COUNT (BEAKER) (test 0.00 K/ L 0.04-0.54 ouzr=949) BASOPHILS ABSOLUTE COUNT (BEAKER) (test 0.03 K/ L 0.01-0.08 fblt=575) IMMATURE GRANULOCYTES-RELATIVE PERCENT (BEAKER) 2 % 0-1 (test civz=2064) RAD, CHEST, 1 VIEW, NON [id number] 04:13:00Reason for exam:->recent pneumothorax, new trachShould this [...] Verified Date/ Time: 06/14/2018 04:13:50 Reading Location: [address] Transitional Reading Room BLOOD GAS, [id number] 01:01:00 Test Item Value Reference Range Comments PH ARTERIAL (BEAKER) (test wutq=695) 7.45 7.35-7.45 PCO2 ARTERIAL (BEAKER) (test okee=718) 41 mmHg 35-45 PO2 ARTERIAL (BEAKER) (test ujwr=082) 109 mmHg 80-90 O2 SATURATION ARTERIAL (BEAKER) (test gfun=911) 98.2 % 96.0-97.0 HCO3 ARTERIAL (BEAKER) (test klfl=766) 28 mmol/L 21-29 BASE EXCESS ARTERIAL (BEAKER) (test cpal=255) 3.4 mmol/L -2.0-3.0 PATIENT TEMPERATURE (BEAKER) (test watx=9878) 36.7 C FIO2 (BEAKER) (test lhxj=1882) 40.0 % POCT-GLUCOSE [id number] 05:32:00 Test Item Value Reference Range Comments POC-GLUCOSE METER (BEAKER) 92 mg/dL 70-110 TESTED AT [address] (test vpbf=5002) [facility] [address] RAD, CHEST, 1 VIEW, NON [id number] 05:03:00Reason for exam:->evaluate for pneumo r/t CTShould [...] Verified Date/ Time: 06/13/2018 05:03:31 Reading Location: [facility] Transitional Reading Room [id number] 04:22:00 Test Item Value Reference Range Comments PARTIAL THROMBOPLASTIN TIME (BEAKER) (test 27.4 seconds 22.5-36.0 itzm=260) PROTHROMBIN [id number] 04:21:00 Test Item Value Reference Range Comments PROTIME (BEAKER) (test xdhh=396) 13.8 seconds 11.7-14.7 INR (BEAKER) (test crzj=231) 1.1 <=5.9 RECOMMENDED COUMADIN/WARFARIN INR THERAPY RANGESSTANDARD DOSE: 2.0 - 3.0 Includes: PROPHYLAXIS forvenous thrombosis, systemic embolization; TREATMENT for venous thrombosis and/or pulmonary embolus.HIGH RISK: Target INR is 2.5-3.5 for patients with mechanical heart valves.[id number] 04:20:00 Test Item Value Reference Range Comments PHOSPHORUS (BEAKER) (test xvcr=164) 3.1 mg/dL 2.3-4.7 [id number] 04:20:00 Test Item Value Reference Range Comments MAGNESIUM (BEAKER) (test avqs=145) 2.0 mg/dL 1.6-2.6 BASIC METABOLIC [id number] 04:20:00 Test Item Value Reference Range Comments SODIUM (BEAKER) (test 140 meq/L 136-145 bvej=062) POTASSIUM (BEAKER) (test 3.7 meq/L 3.5-5.1 eyqk=038) CHLORIDE (BEAKER) (test 101 meq/L 98-107 iwcq=815) CO2 (BEAKER) (test 30 meq/L 22-29 qzvn=991) BLOOD UREA NITROGEN 13 mg/dL 7-21 (BEAKER) (test fgia=814) CREATININE (BEAKER) (test 0.74 mg/dL 0.57-1.25 wqqf=848) GLUCOSE RANDOM (BEAKER) 97 mg/dL 70-105 (test ntnd=756) CALCIUM (BEAKER) (test 9.2 mg/dL 8.4-10.2 yygt=758) EGFR (BEAKER) (test 113 mL/min/1.73 sq m ESTIMATED GFR IS NOT gykn=3660) ACCURATE CREATININE CLEARANCE IN PREDICTING GLOMERULAR FILTRATION RATE. ESTIMATED GFR IS NOT APPLICABLE FOR DIALYSIS PATIENTS. CBC W/PLT COUNT & AUTO [id number] 04:14:00 Test Item Value Reference Range Comments WHITE BLOOD CELL COUNT (BEAKER) (test ovbd=431) 11.6 K/ L 3.5-10.5 RED BLOOD CELL COUNT (BEAKER) (test hwbo=585) 4.30 M/ L 4.63-6.08 HEMOGLOBIN (BEAKER) (test klqf=446) 13.9 GM/DL 13.7-17.5 HEMATOCRIT (BEAKER) (test ymog=558) 43.3 % 40.1-51.0 MEAN CORPUSCULAR VOLUME (BEAKER) (test zwdn=141) 100.7 fL 79.0-92.2 MEAN CORPUSCULAR HEMOGLOBIN (BEAKER) (test 32.3 pg 25.7-32.2 mppb=682) MEAN CORPUSCULAR HEMOGLOBIN CONC (BEAKER) (test 32.1 GM/DL 32.3-36.5 hvdn=163) RED CELL DISTRIBUTION WIDTH (BEAKER) (test 14.1 % 11.6-14.4 fpto=358) PLATELET COUNT (BEAKER) (test nfbf=083) 182 K/CU MM 150-450 MEAN PLATELET VOLUME (BEAKER) (test cbbk=110) 10.7 fL 9.4-12.4 NUCLEATED RED BLOOD CELLS (BEAKER) (test 0 /100 WBC 0-0 ocpy=849) NEUTROPHILS RELATIVE PERCENT (BEAKER) (test 89 % snyo=677) LYMPHOCYTES RELATIVE PERCENT (BEAKER) (test 3 % vuyb=932) MONOCYTES RELATIVE PERCENT (BEAKER) (test 6 % qtsa=007) EOSINOPHILS RELATIVE PERCENT (BEAKER) (test 0 % zsld=622) BASOPHILS RELATIVE PERCENT (BEAKER) (test 0 % jdni=151) NEUTROPHILS ABSOLUTE COUNT (BEAKER) (test 10.26 K/ L 1.78-5.38 ozzn=581) LYMPHOCYTES ABSOLUTE COUNT (BEAKER) (test 0.39 K/ L 1.32-3.57 cmbb=834) MONOCYTES ABSOLUTE COUNT (BEAKER) (test 0.74 K/ L 0.30-0.82 cgrg=691) EOSINOPHILS ABSOLUTE COUNT (BEAKER) (test 0.02 K/ L 0.04-0.54 safn=130) BASOPHILS ABSOLUTE COUNT (BEAKER) (test 0.03 K/ L 0.01-0.08 ojnn=624) IMMATURE GRANULOCYTES-RELATIVE PERCENT (BEAKER) 1 % 0-1 (test vbcl=0023) POCT-GLUCOSE [id number] 00:14:00 Test Item Value Reference Range Comments POC-GLUCOSE METER (BEAKER) 126 mg/dL 70-110 TESTED AT [address] (test xnqx=9889) [facility] [address] RAD, CHEST, 1 VIEW, NON [id number] 12:29:00Reason for exam:->s/p[ L thoracocentesisFINAL REPORT CLINICAL HISTORY: s/p[ L thoracocentesis TECHNIQUE: 1 view of the chest. COMPARISON: 06/12/2018 IMPRESSION: A tracheostomy tube is again seen. There is no pneumothorax. Bibasilar atelectasis is again noted. There is no significant appearing pleural fluid. The cardiomediastinal silhouette is magnified by technique. Signed: Jacqueline Hilliard MDReport Verified Date/Time:06/12/2018 12:29:27 Reading Location: [facility] C0[facility] Consult Reading Room POCT-GLUCOSE [id number] 12:10:00 Test Item Value Reference Range Comments POC-GLUCOSE METER (BEAKER) 194 mg/dL 70-110 TESTED AT [address] (test rmew=2190) [place] [address] CT, CHEST, WITH [id number] 10:26:00Premedicated for contrast allergy. With general anesthesia [...] Man Verified Date/Time: 06/12/2018 10:26:26 Reading Location: [facility] Diagnostic Imaging Reading Room - [place] [address], SOFT TISSUE NECK, [id number] 09:53: 00Premedicated for contrast allergy. With gneral [...] MDRnicolasort Verified Date/Time: 06/12/2018 09:53:06 Reading Location: [facility] B1 C013V Neuro Reading Room [id number] 06:00:00 Test Item Value Reference Range Comments PHOSPHORUS (BEAKER) (test adyv=998) 2.9 mg/dL 2.3-4.7 [id number] 06:00:00 Test Item Value Reference Range Comments MAGNESIUM (BEAKER) (test tkcg=766) 2.1 mg/dL 1.6-2.6 BASIC METABOLIC [id number] 06:00:00 Test Item Value Reference Range Comments SODIUM (BEAKER) (test 139 meq/L 136-145 qryf=832) POTASSIUM (BEAKER) (test 3.9 meq/L 3.5-5.1 ased=410) CHLORIDE (BEAKER) (test 104 meq/L 98-107 vrjb=967) CO2 (BEAKER) (test 26 meq/L 22-29 hofi=781) BLOOD UREA NITROGEN 13 mg/dL 7-21 (BEAKER) (test nert=582) CREATININE (BEAKER) (test 0.65 mg/dL 0.57-1.25 jwkf=629) GLUCOSE RANDOM (BEAKER) 109 mg/dL 70-105 (test pfxo=689) CALCIUM (BEAKER) (test 9.5 mg/dL 8.4-10.2 dacj=200) EGFR (BEAKER) (test 132 mL/min/1.73 sq m ESTIMATED GFR IS NOT umrf=8898) ACCURATE CREATININE CLEARANCE IN PREDICTING GLOMERULAR FILTRATION RATE. ESTIMATED GFR IS NOT APPLICABLE FOR DIALYSIS PATIENTS. POCT-GLUCOSE [id number] 05:44:00 Test Item Value Reference Range Comments POC-GLUCOSE METER (BEAKER) 157 mg/dL 70-110 TESTED AT [facility] [address] [facility] (test nnxx=8837) [facility] [address] CBC W/PLT COUNT & AUTO [id number] 04:29:00 Test Item Value Reference Range Comments WHITE BLOOD CELL COUNT (BEAKER) (test cbxs=193) 17.3 K/ L 3.5-10.5 RED BLOOD CELL COUNT (BEAKER) (test muby=812) 4.42 M/ L 4.63-6.08 HEMOGLOBIN (BEAKER) (test agli=706) 14.4 GM/DL 13.7-17.5 HEMATOCRIT (BEAKER) (test ryak=941) 43.7 % 40.1-51.0 MEAN CORPUSCULAR VOLUME (BEAKER) (test iypg=284) 98.9 fL 79.0-92.2 MEAN CORPUSCULAR HEMOGLOBIN (BEAKER) (test 32.6 pg 25.7-32.2 cbzb=669) MEAN CORPUSCULAR HEMOGLOBIN CONC (BEAKER) (test 33.0 GM/DL 32.3-36.5 fnqo=892) RED CELL DISTRIBUTION WIDTH (BEAKER) (test 14.2 % 11.6-14.4 tfks=013) PLATELET COUNT (BEAKER) (test twek=682) 180 K/CU MM 150-450 MEAN PLATELET VOLUME (BEAKER) (test nvri=488) 10.9 fL 9.4-12.4 NUCLEATED RED BLOOD CELLS (BEAKER) (test 0 /100 WBC 0-0 icrp=420) NEUTROPHILS RELATIVE PERCENT (BEAKER) (test 94 % tlmg=761) LYMPHOCYTES RELATIVE PERCENT (BEAKER) (test 2 % uixk=452) MONOCYTES RELATIVE PERCENT (BEAKER) (test 3 % bplu=073) EOSINOPHILS RELATIVE PERCENT (BEAKER) (test 0 % wwoc=327) BASOPHILS RELATIVE PERCENT (BEAKER) (test 0 % gjwd=042) NEUTROPHILS ABSOLUTE COUNT (BEAKER) (test 16.28 K/ L 1.78-5.38 cugq=485) LYMPHOCYTES ABSOLUTE COUNT (BEAKER) (test 0.28 K/ L 1.32-3.57 oryu=874) MONOCYTES ABSOLUTE COUNT (BEAKER) (test 0.55 K/ L 0.30-0.82 mgzp=237) EOSINOPHILS ABSOLUTE COUNT (BEAKER) (test 0.00 K/ L 0.04-0.54 xrws=833) BASOPHILS ABSOLUTE COUNT (BEAKER) (test 0.02 K/ L 0.01-0.08 gsgy=684) IMMATURE GRANULOCYTES-RELATIVE PERCENT (BEAKER) 1 % 0-1 (test zjpq=9617) RAD, CHEST, 1 VIEW, NON [id number] 04:26:00Reason for exam:->evaluate for pneumo r/t CTShould this be performed at the bedside?->YesFINAL REPORT CLINICAL INDICATION: Support lines. Comparison: 2018 The cardiomediastinal contours are stable. The lung volumes remain low. The lateral pulmonary opacities are similar to previous within variation of acquisition technique. There is no pneumothorax. A tracheostomy tube is stable. Signed: Jakob Garcia MDReport Verified Date/Time: 06/12/2018 04:26:44 Reading Location: [address] Reading Room Electronically signed by: JAKOB GARCIA M.D. on06/12/2018 04:26 [id number] 04:02:00 Test Item Value Reference Range Comments PARTIAL THROMBOPLASTIN TIME (BEAKER) (test 29.1 seconds 22.5-36.0 fjis=951) PROTHROMBIN TIME/[id number] 04:01:00 Test Item Value Reference Range Comments PROTIME (BEAKER) (test jokd=563) 13.4 seconds 11.7-14.7 INR (BEAKER) (test lanv=733) 1.0 <=5.9 RECOMMENDED COUMADIN/WARFARIN INR THERAPY RANGESSTANDARD DOSE: 2.0 - 3.0 Includes: PROPHYLAXIS forvenous thrombosis, systemic embolization; TREATMENT for venous thrombosis and/or pulmonary embolus.HIGH RISK: Target INR is 2.5-3.5 for patients with mechanical heart valves.POCT-GLUCOSE [id number] 00:10:00 Test Item Value Reference Range Comments POC-GLUCOSE METER (BEAKER) 225 mg/dL 70-110 TESTED AT [facility] [address] [facility] (test mucj=4360) [facility] [address] POCT-GLUCOSE [id number] 06:14:00 Test Item Value Reference Range Comments POC-GLUCOSE METER (BEAKER) 129 mg/dL 70-110 TESTED AT [facility] [address] [facility] (test elhq=7936) [facility] [address] TSH/FREE T4 IF [id number] 04:46:00 Test Item Value Reference Range Comments THYROID STIMULATING HORMONE (BEAKER) (test 0.87 uIU/mL 0.35-4.94 gnpi=764) CBC W/PLT COUNT & AUTO [id number] 04:30:00 Test Item Value Reference Range Comments WHITE BLOOD CELL COUNT (BEAKER) (test rzoh=047) 16.2 K/ L 3.5-10.5 RED BLOOD CELL COUNT (BEAKER) (test wakh=537) 4.01 M/ L 4.63-6.08 HEMOGLOBIN (BEAKER) (test eadq=342) 12.9 GM/DL 13.7-17.5 HEMATOCRIT (BEAKER) (test yjwk=371) 41.0 % 40.1-51.0 MEAN CORPUSCULAR VOLUME (BEAKER) (test ijje=044) 102.2 fL 79.0-92.2 MEAN CORPUSCULAR HEMOGLOBIN (BEAKER) (test 32.2 pg 25.7-32.2 fooi=765) MEAN CORPUSCULAR HEMOGLOBIN CONC (BEAKER) (test 31.5 GM/DL 32.3-36.5 pgbo=376) RED CELL DISTRIBUTION WIDTH (BEAKER) (test 14.5 % 11.6-14.4 tugs=820) PLATELET COUNT (BEAKER) (test yrep=567) 176 K/CU MM 150-450 MEAN PLATELET VOLUME (BEAKER) (test puqd=322) 10.9 fL 9.4-12.4 NUCLEATED RED BLOOD CELLS (BEAKER) (test 0 /100 WBC 0-0 vftc=378) NEUTROPHILS RELATIVE PERCENT (BEAKER) (test 93 % vxpb=711) LYMPHOCYTES RELATIVE PERCENT (BEAKER) (test 2 % ogxr=426) MONOCYTES RELATIVE PERCENT (BEAKER) (test 4 % yges=861) EOSINOPHILS RELATIVE PERCENT (BEAKER) (test 0 % izfz=576) BASOPHILS RELATIVE PERCENT (BEAKER) (test 0 % axuj=864) NEUTROPHILS ABSOLUTE COUNT (BEAKER) (test 15.09 K/ L 1.78-5.38 mouo=045) LYMPHOCYTES ABSOLUTE COUNT (BEAKER) (test 0.28 K/ L 1.32-3.57 yuzk=650) MONOCYTES ABSOLUTE COUNT (BEAKER) (test 0.60 K/ L 0.30-0.82 thun=359) EOSINOPHILS ABSOLUTE COUNT (BEAKER) (test 0.00 K/ L 0.04-0.54 axdk=464) BASOPHILS ABSOLUTE COUNT (BEAKER) (test 0.02 K/ L 0.01-0.08 hvde=055) IMMATURE GRANULOCYTES-RELATIVE PERCENT (BEAKER) 1 % 0-1 (test gydt=3707) [id number] 04:26:00 Test Item Value Reference Range Comments PREALBUMIN (BEAKER) (test mgrq=445) 25 mg/dL 14-45 [id number] 04:24:00 Test Item Value Reference Range Comments PHOSPHORUS (BEAKER) (test hrop=358) 3.5 mg/dL 2.3-4.7 [id number] 04:24:00 Test Item Value Reference Range Comments MAGNESIUM (BEAKER) (test ipzn=718) 2.0 mg/dL 1.6-2.6 BASIC METABOLIC [id number] 04:24:00 Test Item Value Reference Range Comments SODIUM (BEAKER) (test 140 meq/L 136-145 satn=396) POTASSIUM (BEAKER) (test 3.9 meq/L 3.5-5.1 wukq=557) CHLORIDE (BEAKER) (test 105 meq/L 98-107 iihf=478) CO2 (BEAKER) (test 26 meq/L 22-29 tuib=629) BLOOD UREA NITROGEN 11 mg/dL 7-21 (BEAKER) (test qlnm=717) CREATININE (BEAKER) (test 0.67 mg/dL 0.57-1.25 hdty=626) GLUCOSE RANDOM (BEAKER) 129 mg/dL 70-105 (test ggxf=885) CALCIUM (BEAKER) (test 9.2 mg/dL 8.4-10.2 oxps=701) EGFR (BEAKER) (test 127 mL/min/1.73 sq m ESTIMATED GFR IS NOT futy=0452) ACCURATE CREATININE CLEARANCE IN PREDICTING GLOMERULAR FILTRATION RATE. ESTIMATED GFR IS NOT APPLICABLE FOR DIALYSIS PATIENTS. PROTHROMBIN [id number] 04:19:00 Test Item Value Reference Range Comments PROTIME (BEAKER) (test qlus=260) 14.5 seconds 11.7-14.7 INR (BEAKER) (test fxdj=159) 1.1 <=5.9 RECOMMENDED COUMADIN/WARFARIN INR THERAPY RANGESSTANDARD DOSE: 2.0 - 3.0 Includes: PROPHYLAXIS forvenous thrombosis, systemic embolization; TREATMENT for venous thrombosis and/or pulmonary embolus.HIGH RISK: Target INR is 2.5-3.5 for patients with mechanical heart valves.[id number] 04:19:00 Test Item Value Reference Range Comments PARTIAL THROMBOPLASTIN TIME (BEAKER) (test 29.7 seconds 22.5-36.0 ofds=530) POCT-GLUCOSE [id number] 01:04:00 Test Item Value Reference Range Comments POC-GLUCOSE METER (BEAKER) 128 mg/dL 70-110 TESTED AT [address] (test ayyw=3239) [facility] [address] POCT-GLUCOSE [id number] 18:19:00 Test Item Value Reference Range Comments POC-GLUCOSE METER (BEAKER) 93 mg/dL 70-110 TESTED AT [address] (test gjkn=2475) [facility] [address] POCT-GLUCOSE [id number] 11:44:00 Test Item Value Reference Range Comments POC-GLUCOSE METER (BEAKER) 87 mg/dL 70-110 TESTED AT [address] (test obkg=2579) [facility] [address] POCT-GLUCOSE [id number] 06:13:00 Test Item Value Reference Range Comments POC-GLUCOSE METER (BEAKER) 158 mg/dL 70-110 TESTED AT [address] (test dgwj=3261) [facility] [address] BLOOD GAS, [id number] 04:53:00 Test Item Value Reference Range Comments PH VENOUS (BEAKER) (test igbw=174) 7.48 7.32-7.42 PCO2 VENOUS (BEAKER) (test neuj=591) 37 mmHg 41-51 PO2 VENOUS (BEAKER) (test qshu=684) 94 mmHg 25-40 O2 SATURATION VENOUS (BEAKER) (test emez=021) 97.7 % 40.0-70.0 HCO3 VENOUS (BEAKER) (test dsop=073) 27 mmol/L 21-29 BASE EXCESS VENOUS (BEAKER) (test nxee=226) 3.7 mmol/L -2.0-3.0 PATIENT TEMPERATURE (BEAKER) (test vxmj=5372) 37.0 C RAD, CHEST, 1 VIEW, NON [id number] 04:42:00Reason for exam:->s/p tracheostomyShould this be performed [...] Carrillo Verified Date/Time: 06/10/2018 04:42:37 Reading Location: [address] Reading Room [id number] 04:29:00 Test Item Value Reference Range Comments MAGNESIUM (BEAKER) (test 2.2 mg/dL 1.6-2.6 Specimen slightly hemolyzed xmwy=163) [id number] 04:29:00 Test Item Value Reference Range Comments PHOSPHORUS (BEAKER) (test 3.7 mg/dL 2.3-4.7 Specimen slightly hemolyzed idco=617) BASIC METABOLIC [id number] 04:29:00 Test Item Value Reference Range Comments SODIUM (BEAKER) (test 139 meq/L 136-145 rnoi=601) POTASSIUM (BEAKER) (test 4.0 meq/L 3.5-5.1 Specimen slightly uzht=130) hemolyzed CHLORIDE (BEAKER) (test 105 meq/L 98-107 kqlv=282) CO2 (BEAKER) (test 24 meq/L 22-29 eziq=917) BLOOD UREA NITROGEN 11 mg/dL 7-21 (BEAKER) (test fata=882) CREATININE (BEAKER) (test 0.70 mg/dL 0.57-1.25 Specimen slightly oqfv=909) hemolyzed GLUCOSE RANDOM (BEAKER) 159 mg/dL 70-105 (test fsxx=319) CALCIUM (BEAKER) (test 9.4 mg/dL 8.4-10.2 fgyt=890) EGFR (BEAKER) (test 121 mL/min/1.73 sq m ESTIMATED GFR IS NOT coev=9854) ACCURATE CREATININE CLEARANCE IN PREDICTING GLOMERULAR FILTRATION RATE. ESTIMATED GFR IS NOT APPLICABLE FOR DIALYSIS PATIENTS. [id number] 04:18:00 Test Item Value Reference Range Comments PARTIAL THROMBOPLASTIN TIME (BEAKER) (test 24.5 seconds 22.5-36.0 puhs=748) PROTHROMBIN [id number] 04:17:00 Test Item Value Reference Range Comments PROTIME (BEAKER) (test myhg=267) 13.7 seconds 11.7-14.7 INR (BEAKER) (test mbbx=671) 1.0 <=5.9 RECOMMENDED COUMADIN/WARFARIN INR THERAPY RANGESSTANDARD DOSE: 2.0 - 3.0 Includes: PROPHYLAXIS forvenous thrombosis, systemic embolization; TREATMENT for venous thrombosis and/or pulmonary embolus.HIGH RISK: Target INR is 2.5-3.5 for patients with mechanical heart valves.CBC W/PLT COUNT & AUTO [id number] 04:06:00 Test Item Value Reference Range Comments WHITE BLOOD CELL COUNT (BEAKER) (test ctxx=587) 17.9 K/ L 3.5-10.5 RED BLOOD CELL COUNT (BEAKER) (test fgqn=113) 4.34 M/ L 4.63-6.08 HEMOGLOBIN (BEAKER) (test uegz=767) 13.7 GM/DL 13.7-17.5 HEMATOCRIT (BEAKER) (test ubdw=639) 42.8 % 40.1-51.0 MEAN CORPUSCULAR VOLUME (BEAKER) (test qqqm=263) 98.6 fL 79.0-92.2 MEAN CORPUSCULAR HEMOGLOBIN (BEAKER) (test 31.6 pg 25.7-32.2 jhlj=694) MEAN CORPUSCULAR HEMOGLOBIN CONC (BEAKER) (test 32.0 GM/DL 32.3-36.5 edlf=678) RED CELL DISTRIBUTION WIDTH (BEAKER) (test 14.4 % 11.6-14.4 zykv=305) PLATELET COUNT (BEAKER) (test vxgh=555) 194 K/CU MM 150-450 MEAN PLATELET VOLUME (BEAKER) (test wfos=071) 10.5 fL 9.4-12.4 NUCLEATED RED BLOOD CELLS (BEAKER) (test 0 /100 WBC 0-0 pcwn=952) NEUTROPHILS RELATIVE PERCENT (BEAKER) (test 92 % bizi=799) LYMPHOCYTES RELATIVE PERCENT (BEAKER) (test 2 % mtoa=590) MONOCYTES RELATIVE PERCENT (BEAKER) (test 5 % ldgc=797) EOSINOPHILS RELATIVE PERCENT (BEAKER) (test 0 % bjcb=120) BASOPHILS RELATIVE PERCENT (BEAKER) (test 0 % ivyd=745) NEUTROPHILS ABSOLUTE COUNT (BEAKER) (test 16.35 K/ L 1.78-5.38 vmpw=931) LYMPHOCYTES ABSOLUTE COUNT (BEAKER) (test 0.40 K/ L 1.32-3.57 mbjw=501) MONOCYTES ABSOLUTE COUNT (BEAKER) (test 0.86 K/ L 0.30-0.82 mcxy=711) EOSINOPHILS ABSOLUTE COUNT (BEAKER) (test 0.00 K/ L 0.04-0.54 mkbz=460) BASOPHILS ABSOLUTE COUNT (BEAKER) (test 0.03 K/ L 0.01-0.08 bfqc=339) IMMATURE GRANULOCYTES-RELATIVE PERCENT (BEAKER) 1 % 0-1 (test netz=6481) POCT-GLUCOSE [id number] 01:05:00 Test Item Value Reference Range Comments POC-GLUCOSE METER (BEAKER) 161 mg/dL 70-110 TESTED AT [address] (test ayck=5009) [facility] [address] RAD, CHEST, 1 VIEW, NON [id number] 22:19:00Reason for exam:->Laryngeal massShould this be performed [...] MDReport Verified Date/Time: 06/09/2018 22:19:49 Reading Location: [address] Consult Reading Room 10: 19 PMRAD, CHEST, 1 VIEW, NON [id number] 20:37:00Reason for exam:-> Laryngeal massShould this be [...] MDReport Verified Date/Time: 01/2019 20:37:30 Reading Location: [address] Reading Room RAD, CHEST, 1 VIEW, NON [id number] 20:18:00Reason for exam:->Post-opShould this be performed at [...] MDReport Verified Date/Time: 06/09/2018 20:18:45 Reading Location: [address] Reading Room CBC W/PLT COUNT & AUTO [id number] 19:32:00 Test Item Value Reference Range Comments WHITE BLOOD CELL COUNT (BEAKER) (test gpci=374) 22.9 K/ L 3.5-10.5 RED BLOOD CELL COUNT (BEAKER) (test odjd=834) 4.82 M/ L 4.63-6.08 HEMOGLOBIN (BEAKER) (test rhuu=364) 15.5 GM/DL 13.7-17.5 HEMATOCRIT (BEAKER) (test nqtn=103) 48.5 % 40.1-51.0 MEAN CORPUSCULAR VOLUME (BEAKER) (test cpmn=739) 100.6 fL 79.0-92.2 MEAN CORPUSCULAR HEMOGLOBIN (BEAKER) (test 32.2 pg 25.7-32.2 dwfq=500) MEAN CORPUSCULAR HEMOGLOBIN CONC (BEAKER) (test 32.0 GM/DL 32.3-36.5 cvoj=437) RED CELL DISTRIBUTION WIDTH (BEAKER) (test 14.5 % 11.6-14.4 seyg=981) PLATELET COUNT (BEAKER) (test nvhv=091) 201 K/CU MM 150-450 MEAN PLATELET VOLUME (BEAKER) (test ixyv=877) 10.1 fL 9.4-12.4 NUCLEATED RED BLOOD CELLS (BEAKER) (test 0 /100 WBC 0-0 stjr=388) (CELLAVISION MANUAL DIFF)2018-06-09 19:32:00 Test Item Value Reference Range Comments NEUTROPHILS - REL (CELLAVISION)(BEAKER) (test 94 % hovs=6240) MONOCYTES - REL (CELLAVISION)(BEAKER) (test 4 % foql=5208) BANDS - REL (CELLAVISION)(BEAKER) (test 1 % 0-10 lujd=5946) NEUTROPHILS - ABS (CELLAVISION)(BEAKER) (test 21.53 K/ul 1.78-5.38 yupc=8409) MONOCYTES - ABS (CELLAVISION)(BEAKER) (test 0.92 K/uL 0.30-0.82 ppwa=6199) BANDS - ABS (CELLAVISION)(BEAKER) (test 0.23 K/uL 0.00-0.80 pfnv=2040) TOTAL COUNTED (BEAKER) (test jktp=8459) 100 RBC MORPHOLOGY (BEAKER) (test vzke=043) Normal PLT MORPHOLOGY (BEAKER) (test cute=226) Normal HYPERSEGMENTATION (CELLAVISION)(BEAKER) (test Present uwgb=5883) ARTIFACT (CELLAVISION)(BEAKER) (test vnrz=3321) Present PLATELET CONCENTRATION (CELLAVISION)(BEAKER) Adequate (test evri=6339) Received comment: User comments: Slide comments:[id number] 19:25:00 Test Item Value Reference Range Comments PHOSPHORUS (BEAKER) (test pqjt=921) 4.7 mg/dL 2.3-4.7 [id number] 19:25:00 Test Item Value Reference Range Comments MAGNESIUM (BEAKER) (test cigp=326) 2.2 mg/dL 1.6-2.6 BASIC METABOLIC [id number] 19:25:00 Test Item Value Reference Range Comments SODIUM (BEAKER) (test 139 meq/L 136-145 aqam=381) POTASSIUM (BEAKER) (test 3.9 meq/L 3.5-5.1 hgjj=308) CHLORIDE (BEAKER) (test 103 meq/L 98-107 xzbz=600) CO2 (BEAKER) (test 27 meq/L 22-29 htwx=084) BLOOD UREA NITROGEN 15 mg/dL 7-21 (BEAKER) (test ihky=052) CREATININE (BEAKER) (test 0.81 mg/dL 0.57-1.25 tevy=431) GLUCOSE RANDOM (BEAKER) 139 mg/dL 70-105 (test kyaj=749) CALCIUM (BEAKER) (test 9.3 mg/dL 8.4-10.2 tnaz=360) EGFR (BEAKER) (test 102 mL/min/1.73 sq m ESTIMATED GFR IS NOT kiat=4977) ACCURATE CREATININE CLEARANCE IN PREDICTING GLOMERULAR FILTRATION RATE. ESTIMATED GFR IS NOT APPLICABLE FOR DIALYSIS PATIENTS. PROTHROMBIN [id number] 19:18:00 Test Item Value Reference Range Comments PROTIME (BEAKER) (test agyk=195) 13.0 seconds 11.7-14.7 INR (BEAKER) (test oyza=073) 1.0 <=5.9 RECOMMENDED COUMADIN/WARFARIN INR THERAPY RANGESSTANDARD DOSE: 2.0 - 3.0 Includes: PROPHYLAXIS forvenous thrombosis, systemic embolization; TREATMENT for venous thrombosis and/or pulmonary embolus.HIGH RISK: Target INR is 2.5-3.5 for patients with mechanical heart valves.[id number] 19:18:00 Test Item Value Reference Range Comments PARTIAL THROMBOPLASTIN TIME (BEAKER) (test 24.0 seconds 22.5-36.0 nkds=200) [id number] 12:47:00 Test Item Value Reference Range Comments HEMOGLOBIN (BEAKER) (test iwkt=294) 15.7 GM/DL 13.7-17.5 PLATELET [id number] 12:47:00 Test Item Value Reference Range Comments PLATELET COUNT (BEAKER) (test gwvp=852) 203 K/CU MM 150-450
[2019-04-06] MEDS ORDERED: MORPHINE 4 MG/ML SYR ONE (19:18)
[2019-04-06] MEDS ORDERED: VANCOMYCIN 1 GM/VIAL ONE (19:18)
[2019-04-06] MEDS ORDERED: ONDANSETRON 4 MG/2 ML VIAL ONE (19:18)
[2019-04-06] MEDS ORDERED: NA CHLORIDE 0.9% 250 ML ONE (19:19)
[2019-04-06] MEDS ORDERED: NA CHLORIDE 0.9% 3,000 ML ONE (19:19)
[2019-04-06 19:20] LABS: Absolute Lymphocytes (CBC) 0.5 K/uL (0.7-4.9); Basophils % 0.2 % (0-1.3); Hematocrit 45.3 % (39.6-49.0); Lymphocytes % 4.8 % (15.3-44.8); MPV 7.9 fL (7.6-11.3); RBC Red Blood Cell Count 4.33 M/uL (4.33-5.43)
[2019-04-06 19:25] LABS: Protime INR 0.96
[2019-04-06 19:40] LABS: ALT/SGPT 33 U/L (12-78); AST/SGOT 22 U/L (15-37); Albumin 3.5 g/dL (3.4-5.0); Alkaline Phosphatase 113 U/L (45-117); BUN Blood Urea Nitrogen 4 mg/dL (7-18); Bicarbonate 25 mmol/L (21-32); Bilirubin Direct 0.3 mg/dL (0-0.2); CKMB Creatine Kinase MB 1.2 ng/mL (0.3-3.6); Creatine Phosphokinase 121 U/L (39-308); Glucose Level 100 mg/dL (74-106); Lipase 190 U/L (73-393); Magnesium 2.1 mg/dL (1.8-2.4); NT PRO-BNP 86 pg/mL (<125); Potassium 3.6 mmol/L (3.5-5.1); Protein, Total 6.7 g/dL (6.4-8.2); Sodium Level 141 mmol/L (136-145); Troponin (Emerg Dept Use Only) < 0.02 ng/mL (0.0-0.045)
--- NOTE | 2019-04-06 19:55 | RAD REPORT ---
EXAM DESCRIPTION: Edin Single View04/06/2019 7:06 pm CLINICAL HISTORY: sob COMPARISON: March 2019 FINDINGS: The lungs appear clear of acute infiltrate. The heart is normal size IMPRESSION: No acute abnormalities displayed
[2019-04-06 20:11] LABS: Anisocytosis 1+; Blood Morphology Comment NOTED (NOT SEEN); Platelet Estimate ADEQ; Urine White Blood Cell Casts OK
--- NOTE | 2019-04-06 20:23 | ER ---
Nurse's Notes [facility] Name: Akin Pugh Age: 48 yrs Sex: Male : 1970 Arrival Date: 04/06/2019 Time: 18:22 Bed 17 Private MD: Diagnosis: Cellulitis of neck Presentation: 04/06 18:27 Presenting complaint: Patient states: this morning, i think my neck is infected again tw2 because of his teeth. Transition of care: patient was not received from another setting of care. Onset of symptoms was April 06, 2019. Risk Assessment: Do you want to hurt yourself or someone else? Patient reports no desire to harm self or others. Initial Sepsis Screen: Does the patient meet any 2 criteria? HR > 90 bpm. No. Patient's initial sepsis screen is negative. Does the patient have a suspected source of infection?. Care prior to arrival: None. 18:27 Method Of Arrival: Ambulatory tw2 18:27 Acuity: PAO 3 tw2 18:30 Presenting complaint: states: i gave him ibuprofen about 45 minutes ago. tw2 Triage Assessment: 18:30 General: Appears in no apparent distress. Behavior is appropriate for age. Pain: tw2 Complains of pain in neck. Respiratory: Reports shortness of breath Onset: The symptoms/episode began/occurred this morning, the patient has moderate shortness of breath. Historical: - Allergies: 18:30 Ampicillin; tw2 18:30 Iodinated Contrast Media - IV Dye; tw2 18:30 Iodine; tw2 18:30 Levaquin; tw2 - Home Meds: 18:30 escitalopram oxalate Oral [Active]; Levoxyl Oral [Active]; tw2 - PMHx: 18:30 Asthma; COPD; THROAT CA; tw2 - Immunization history:: Adult Immunizations. - Social history:: Smoking status: . - Ebola Screening: : Patient denies travel to an Ebola-affected area in the 21 days before illness onset. Screenin:38 Abuse screen: Denies threats or abuse. Nutritional screening: No deficits noted. em Tuberculosis screening: No symptoms or risk factors identified. Fall Risk None identified. Assessment: 18:45 General: Appears in no apparent distress. uncomfortable, Behavior is calm, cooperative, em Reports fever for 0-12 hours. Pain: Complains of pain in neck Pain currently is 8 out of 10 on a pain scale. Neuro: Level of Consciousness is awake, alert, obeys commands, Oriented to person, place, time, situation. Cardiovascular: Rhythm is regular. Respiratory: Airway is patent Respiratory effort is even, unlabored, Respiratory pattern is regular, symmetrical, Trach noted Breath sounds are clear bilaterally. Derm: Skin is intact, Skin is pink, warm \T\ dry. redness and swelling noted to neck an left jaw area, reports diagnosed with cellulitis 3 weeks ago for the same thing. Musculoskeletal: Capillary refill < 3 seconds, Range of motion: intact in all extremities. 18:45 Reassessment: I agree with assessment completed by Vickey Paulino LVN. aa5 19:38 Reassessment: Patient appears in no apparent distress at this time. Patient and/or wh family updated on plan of care and expected duration. Pain level reassessed. Patient is alert, oriented x 3, equal unlabored respirations, skin warm/dry/pink. 20:40 Reassessment: Patient appears in no apparent distress at this time. Patient and/or wh family updated on plan of care and expected duration. Pain level reassessed. Patient is alert, oriented x 3, equal unlabored respirations, skin warm/dry/pink. MD at bedside explaining POC need for admit. 21:51 Reassessment: Patient appears in no apparent distress at this time. Patient and/or wh family updated on plan of care and expected duration. Pain level reassessed. Patient is alert, oriented x 3, equal unlabored respirations, skin warm/dry/pink. Patient states feeling better. Patient states symptoms have improved. Vital Signs: 18:31 BP 160 / 91; Pulse 102; Resp 20; Temp 99.5(O); Pulse Ox 97% on R/A; Weight 83.91 kg tw2 (R); Height 6 ft. 1 in. (185.42 cm); Pain 8/10; 19:38 BP 133 / 113; Pulse 96; Resp 18; Pulse Ox 95% ; wh 20:40 BP 151 / 91; Pulse 79; Resp 18; Pulse Ox 100% ; wh 21:52 BP 151 / 84; Pulse 99; Resp 18; Pulse Ox 94% ; wh 18:31 Body Mass Index 24.41 (83.91 kg, 185.42 cm) tw2 ED Course: 18:22 Patient arrived in ED. ds1 18:29 Triage completed. tw2 18:30 Arm band placed on. tw2 18:32 Angelito Lemus MD is Attending Physician. tw4 18:38 Vickey Paulino LVN is Primary Nurse. em 18:38 Patient has correct armband on for positive identification. Placed in gown. Bed in low em position. Call light in reach. Side rails up X2. Pulse ox on. NIBP on. 18:50 Inserted saline lock: 20 gauge in left forearm, using aseptic technique. Blood em collected. 18:50 Initial lab(s) drawn, by me, sent to lab. First set of blood cultures drawn by me. em 19:03 XRAY CXR (1 view) In Process Unspecified. EDMS 20:19 Michael Chaudhary is Hospitalizing Provider. tw4 22:01 No provider procedures requiring assistance completed. Patient admitted, IV remains in wh place. Administered Medications: 19:15 Drug: NS 0.9% (30 ml/kg) 30 ml/kg Route: IV; Rate: bolus; Site: left forearm; wh 20:56 Follow up: Response: No adverse reaction; IV Status: Completed infusion; IV Intake: wh 2500ml 19:17 Drug: morphine 4 mg Route: IVP; Site: left forearm; wh 19:53 Follow up: Response: No adverse reaction; Pain is decreased; RASS: Alert and Calm (0) wh 19:19 Drug: Zofran 4 mg Route: IVP; Site: left forearm; wh 19:54 Follow up: Response: No adverse reaction; Nausea is decreased wh 19:21 Drug: vancoMYCIN 1 grams Route: IVPB; Rate: calculated rate; Site: left forearm; wh 22:37 Follow up: Response: No adverse reaction; IV Status: Completed infusion wh 20:40 Drug: DuoNeb (3:1) (2.5 mg - 0.5 mg) 3 ml Route: Nebulizer; wh 20:55 Follow up: Response: No adverse reaction; Pain is decreased wh 20:56 Follow up: Response: No adverse reaction; Wheezing diminished wh 20:40 Drug: TORadol 30 mg Route: IVP; Site: left forearm; wh 20:56 Follow up: Response: No adverse reaction; Pain is decreased wh Intake: 20:56 IV: 2500ml; Total: 2500ml. Outcome: 20:20 Decision to Hospitalize by Provider. tw4 22:01 Admitted to ER Hold. Please see [facility] for further documentation. 22:01 Condition: stable 22:01 Instructed on the need for admit. 04/07 03:47 Patient left the ED. Signatures: Dispatcher [employer] Vickey Moise RN Kathi Calvert ds1 Jody Villegas RN RN aa5 Chelsie Saucedo RN RN tw2 [place] Quintero Angelito Lemus MD MD tw4
--- NOTE | 2019-04-06 20:24 | EDPHYS ---
Physician Documentation [facility] Name: Akin Pugh Age: 48 yrs Sex: Male : 1970 Arrival Date: 04/06/2019 Time: 18:22 Bed 17 Private MD: ED Physician Angelito Lemus HPI: 04/06 21:41 This 48 yrs old Male presents to ER via Ambulatory with complaints of tw4 Breathing Difficulty. 21:41 The patient or guardian complains of pain, that is acute. The symptoms are located on tw4 the neck. Onset: The symptoms/episode began/occurred yesterday. Context: The problem was sustained at home. Associated signs and symptoms: The patient has no apparent associated signs or symptoms. The pain does not radiate. Severity of symptoms: At their worst the symptoms were. The patient has experienced similar episodes in the past, several times. Historical: - Allergies: 18:30 Ampicillin; tw2 18:30 Iodinated Contrast Media - IV Dye; tw2 18:30 Iodine; tw2 18:30 Levaquin; tw2 - Home Meds: 18:30 escitalopram oxalate Oral [Active]; Levoxyl Oral [Active]; tw2 - PMHx: 18:30 Asthma; COPD; THROAT CA; tw2 - Immunization history:: Adult Immunizations. - Social history:: Smoking status: . - Ebola Screening: : Patient denies travel to an Ebola-affected area in the 21 days before illness onset. ROS: 21:41 Constitutional: Negative for fever, chills, and weight loss, Eyes: Negative for injury, tw4 pain, redness, and discharge, Cardiovascular: Negative for chest pain, palpitations, and edema, Respiratory: Negative for shortness of breath, cough, wheezing, and pleuritic chest pain, Abdomen/GI: Negative for abdominal pain, nausea, vomiting, diarrhea, and constipation, Back: Negative for injury and pain, MS/Extremity: Negative for injury and deformity, Skin: Negative for injury, rash, and discoloration. Exam: 21:49 Constitutional: This is a well developed, well nourished patient who is awake, alert, tw4 and in no acute distress. Eyes: Pupils equal round and reactive to light, extra-ocular motions intact. Lids and lashes normal. Conjunctiva and sclera are non-icteric and not injected. Cornea within normal limits. Periorbital areas with no swelling, redness, or edema. 21:49 Cardiovascular: Regular rate and rhythm with a normal S1 and S2. No gallops, murmurs, or rubs. Normal PMI, no JVD. No pulse deficits. Respiratory: Lungs have equal breath sounds bilaterally, clear to auscultation and percussion. No rales, rhonchi or wheezes noted. No increased work of breathing, no retractions or nasal flaring. Abdomen/GI: Soft, non-tender, with normal bowel sounds. No distension or tympany. No guarding or rebound. No evidence of tenderness throughout. Back: No spinal tenderness. No costovertebral tenderness. Full range of motion. MS/ Extremity: Pulses equal, no cyanosis. Neurovascular intact. Full, normal range of motion. Neuro: Awake and alert, GCS 15, oriented to person, place, time, and situation. Cranial nerves II-XII grossly intact. Motor strength 5/5 in all extremities. Sensory grossly intact. Cerebellar exam normal. Normal gait. 21:49 Neck: External neck: cellulitis, that is moderate, of the thyroid cartilage, right aspect of thyroid and left aspect of thyroid, stoma from previous tracheostomy in place. Vital Signs: 18:31 BP 160 / 91; Pulse 102; Resp 20; Temp 99.5(O); Pulse Ox 97% on R/A; Weight 83.91 kg tw2 (R); Height 6 ft. 1 in. (185.42 cm); Pain 8/10; 19:38 BP 133 / 113; Pulse 96; Resp 18; Pulse Ox 95% ; wh 20:40 BP 151 / 91; Pulse 79; Resp 18; Pulse Ox 100% ; wh 21:52 BP 151 / 84; Pulse 99; Resp 18; Pulse Ox 94% ; wh 18:31 Body Mass Index 24.41 (83.91 kg, 185.42 cm) tw2 MDM: 18:32 Patient medically screened. tw4 21:49 Data reviewed: vital signs, nurses notes. Counseling: I had a detailed discussion with tw4 the patient and/or guardian regarding: the historical points, exam findings, and any diagnostic results supporting the discharge/admit diagnosis, lab results, radiology results. Medication response: albuterol nebulizer treatment(s) markedly relieved the patient's wheezing, morphine markedly relieved the patient's pain. Symptoms have improved, Toradol markedly relieved the patient's pain. Response to treatment: the patient's symptoms have markedly improved after treatment. Special discussion: I discussed with the patient/guardian in detail that at this point there is no indication for admission to the hospital. It is understood, however, that if the symptoms persist or worsen the patient needs to return immediately for re-evaluation. 04/06 18:32 Order name: Blood Culture Adult (2) 04/06 18:32 Order name: BMP; Complete Time: 20:20 04/06 20:20 Interpretation: Normal except: CL 109; BUN 4. 04/06 18:32 Order name: CBC with Diff; Complete Time: 20:20 04/06 20:21 Interpretation: Normal except: MCH 35.6; MCV 104.5; LYMA 0.5; NEUT A 9.2; LYM% 4.8; tw4 SELVIN% 85.4; RDW 17.0. 04/06 18:32 Order name: Ckmb; Complete Time: 20:20 04/06 20:23 Interpretation: Within normal limits: CKMB 1.2. 04/06 18:32 Order name: CPK; Complete Time: 20:20 04/06 20:24 Interpretation: Within normal limits: CPK 121. 04/06 18:32 Order name: D-Dimer; Complete Time: 20:20 04/06 20:24 Interpretation: Within normal limits: D-DIMER 354. 04/06 18:32 Order name: Hepatic Function; Complete Time: 20:20 04/06 20:22 Interpretation: Normal except: BILID 0.3. 04/06 18:32 Order name: Lipase; Complete Time: 20:20 04/06 20:24 Interpretation: Within normal limits: LIP 190. 04/06 18:32 Order name: Magnesium; Complete Time: 20:20 04/06 20:24 Interpretation: Within normal limits: MG 2.1. 04/06 18:32 Order name: NT PRO-BNP; Complete Time: 20:20 04/06 20:24 Interpretation: Within normal limits: NT PRO-BNP 86. 04/06 18:32 Order name: PT-INR; Complete Time: 20:20 tw4 04/06 20:24 Interpretation: Within normal limits: PT 11.4. tw4 04/06 18:32 Order name: Ptt, Activated; Complete Time: 20:20 tw4 04/06 20:24 Interpretation: Within normal limits: PTT 30.4. tw4 04/06 18:32 Order name: Troponin (emerg Dept Use Only); Complete Time: 20:20 tw4 04/06 20:25 Interpretation: Within normal limits: TROPED < 0.02. tw4 04/06 19:00 Order name: Lactate; Complete Time: 20:20 tw4 04/06 20:23 Interpretation: Abnormal: LAC 2.3. tw4 04/06 18:32 Order name: XRAY CXR (1 view); Complete Time: 20:20 tw 04/06 20:23 Interpretation: No acute disease. tw4 04/06 18:32 Order name: EKG; Complete Time: 18:34 [facility] 04/06 19:01 Order name: Blood Culture Adult (2) tw4 04/06 19:01 Order name: CBC with Diff tw4 04/06 19:01 Order name: Lactate tw4 04/06 19:01 Order name: Procalcitonin; Complete Time: 20:20 4 04/06 20:25 Interpretation: Within normal limits: Procalcitonin < 0.05. tw4 04/06 19:01 Order name: Ptt, Activated tw4 04/06 19:01 Order name: Urine Microscopic Only tw4 04/06 19:25 Order name: CBC Smear Scan; Complete Time: 20:20 [facility] 04/06 20:25 Interpretation: Within normal limits: RBC ABNOR MORPH NOTED. tw4 04/06 23:46 Order name: Lactate Sepsis 2 HR Follow-up EDMT 04/06 18:32 Order name: Cardiac monitoring; Complete Time: 19:04 tw4 04/06 18:32 Order name: EKG - Nurse/Tech; Complete Time: 19:04 tw4 04/06 18:32 Order name: IV Saline Lock; Complete Time: 19:04 tw4 04/06 18:32 Order name: Labs collected and sent; Complete Time: 19:04 tw4 04/06 18:32 Order name: O2 Per Protocol; Complete Time: 19:04 tw4 04/06 18:32 Order name: O2 Sat Monitoring; Complete Time: : tw4 04/06 19:01 Order name: Accucheck; Complete Time: : tw4 EC:51 Rate is 96 beats/min. Rhythm is regular. QRS [place] is Normal. [place] interval is normal. QRS tw4 interval is normal. QT interval is normal. No Q waves. T waves are Normal. No ST changes noted. Clinical impression: Normal ECG. Interpreted by me. Reviewed by me. Administered Medications: 19:15 Drug: NS 0.9% (30 ml/kg) 30 ml/kg Route: IV; Rate: bolus; Site: left forearm; 20:56 Follow up: Response: No adverse reaction; IV Status: Completed infusion; IV Intake: 2500ml 19:17 Drug: morphine 4 mg Route: IVP; Site: left forearm; 19:53 Follow up: Response: No adverse reaction; Pain is decreased; RASS: Alert and Calm (0) 19:19 Drug: Zofran 4 mg Route: IVP; Site: left forearm; 19:54 Follow up: Response: No adverse reaction; Nausea is decreased 19:21 Drug: vancoMYCIN 1 grams Route: IVPB; Rate: calculated rate; Site: left forearm; wh 22:37 Follow up: Response: No adverse reaction; IV Status: Completed infusion 20:40 Drug: DuoNeb (3:1) (2.5 mg - 0.5 mg) 3 ml Route: Nebulizer; 20:55 Follow up: Response: No adverse reaction; Pain is decreased 20:56 Follow up: Response: No adverse reaction; Wheezing diminished wh 20:40 Drug: TORadol 30 mg Route: IVP; Site: left forearm; 20:56 Follow up: Response: No adverse reaction; Pain is decreased Disposition: 04/06/19 20:20 Hospitalization ordered by Michael Chaudhary for Inpatient Admission. Preliminary diagnosis is Cellulitis of neck. - Bed requested for Telemetry/MedSurg (Inpatient). - Status is Inpatient Admission. - Condition is Stable. - Problem is an ongoing problem. - Symptoms are unchanged. UTI on Admission? No Signatures: Dispatcher [employer] EDJasmyn Galvez RN RN Chelsie Saucedo RN RN tw2 HabMichoacano martinez Terrence, MD MD tw4 Corrections: (The following items were deleted from the chart) 21:54 20:20 Hospitalization Ordered by Michael Chaudhary for Inpatient Admission. Preliminary diagnosis is Cellulitis of neck. Bed requested for Telemetry/MedSurg (Inpatient). Status is Inpatient Admission. Condition is Stable. Problem is an ongoing problem. Symptoms are unchanged. UTI on Admission? No. tw4 04/07 03:17 04/06 21:54 04/06/2019 20:20 Hospitalization Ordered by Michael Chaudhary for Inpatient Admission. Preliminary diagnosis is Cellulitis of neck. Bed requested for [facility] ER HOLD. Status is Inpatient Admission. Condition is Stable. Problem is an ongoing problem. Symptoms are unchanged. UTI on Admission? No. mw 04/07 03:47 03:17 04/06/2019 20:20 Hospitalization Ordered by Michael Chaudhary for Inpatient Admission. Preliminary diagnosis is Cellulitis of neck. Bed requested for Telemetry/MedSurg (Inpatient). Status is Inpatient Admission. Condition is Stable. Problem is an ongoing problem. Symptoms are unchanged. UTI on Admission? No. mw
[2019-04-06] MEDS ORDERED: ALBUTEROL 2.5 MG/3 ML NEB SOL ONE (20:32)
[2019-04-06] MEDS ORDERED: IPRATROPIUM BROM 0.5MG/2.5ML ONE (20:32)
[2019-04-06] MEDS ORDERED: KETOROLAC 30 MG/ML INJ ONE (20:33)
--- NOTE | 2019-04-06 21:44 | P.HP ---
Certification for Inpatient Patient admitted to: Inpatient With expected LOS: >2 Midnights Practitioner: I am a practitioner with admitting privileges, knowledge of patient current condition, hospital course, and medical plan of care. Services: Services provided to patient in accordance with Admission requirements found in Title 42 Section 412.3 of the Code of Federal Regulations Patient History Date of Service: 04/06/19 Reason for admission: Neck pain and fever History of Present Illness: The patient is a 48-year-old gentleman with a history of laryngeal cancer status post total laryngectomy, status post percutaneous flap complicated by abscesses and cellulitis, history of multiple hospitalizations for recurrent cellulitis in the anterior neck, most recent hospitalization was about 1 month ago. He presented emergency department with an episode of neck pain and fever. The patient reports fever up to 103 at home. The recurrent anteriorly neck cellulitis is suspected to be related to dental infection and patient was supposed to see a dentist to have his teeth pulled out but has not gotten to that. He was tachycardic in the ED, temperature up to 99.5. Patient is not using oxygen. He does not meet criteria for sepsis. He is admitted for IV antibiotics. Allergies levofloxacin [From Levaquin] Allergy (Severe, Verified 04/06/19 22:53) Itching/Hives/Rash ampicillin Allergy (Verified 04/06/19 22:53) Itching/Hives/Rash iodine Allergy (Verified 04/06/19 22:53) Hives/Rash Home Medications: Escitalopram [Lexapro*] 20 mg PO DAILY 05/27/18 Levothyroxine Sodium [Levoxyl] 137 mcg PO [id number] 06/26/18 Guaifenesin [Mucinex] 1 tab PO BID 04/07/19 - Past Medical/Surgical History Diabetic: No -: Asthma -: Depression -: Throat cancer status post complete laryngectomy/reconstruction 06/2018 -: Recurrent postop infection -: Chronic pain -: Former tobacco use -: Surgical hypothyroidism -: Tracheostomy -: Appendectomy -: Complete laryngectomy with reconstruction -: knee surgery bilateral knees -: Thyroidectomy Psychosocial/ Personal History: Patient is . He has 3 children. - Family History Father -: Heart disease, Diabetes Notes: agent orange: immobile Mother -: Cancer Notes: breast ca - Social History Alcohol use: Yes CD- Drugs: No Caffeine use: Yes Review of Systems Other: General: No unintentional weight loss. He reports chills. Eyes: No eye discharge, Respiratory: No cough, no shortness of breath. CVS: No chest pain, no palpitation, no lightheadedness. GI: No abdominal pain, no nausea no vomit, no constipation, no diarrhea. Genitourinary: No dysuria, no urinary frequency, no incontinence, no hematuria. Musculoskeletal: No joint pains, or joint swelling, no gait instability. Neurology: No headache, no asymmetric weakness, no problem with swallowing. Except as documented, all other systems reviewed and negative. Physical Examination - Physical Exam General: Alert, In no apparent distress, Oriented x3 HEENT: Atraumatic, Mucous membr. moist/pink Neck: Supple, JVD not distended, Other (Tracheostomy stoma) Respiratory: Clear to auscultation bilaterally, Normal air movement Cardiovascular: No edema, Regular rate/rhythm, Normal S1 S2 Capillary refill: <2 Seconds Gastrointestinal: Normal bowel sounds, Soft and benign, Non-distended Musculoskeletal: No swelling Integumentary: Erythema (Anterior neck), Other Neurological: Normal gait, Normal speech, Normal strength at 5/5 x4 extr Lymphatics: No axilla or inguinal lymphadenopathy - Studies Laboratory Data (last 24 hrs) 04/06/19 18:50: PT 11.4, INR 0.96, APTT 30.4 04/06/19 18:50: WBC 10.8, Hgb 15.4, Hct 45.3, Plt Count 238 04/06/19 18:50: Sodium 141, Potassium 3.6, BUN 4 L, Creatinine 0.83, Glucose 100 , Magnesium 2.1, Total Bilirubin 1.0, AST 22, ALT 33, Alkaline Phosphatase 113, Lipase 190 Assessment and Plan - Problems (Diagnosis) (1) Cellulitis of neck Current Visit: No Status: Acute (2) Fever Onset Date: 10/07/17 Current Visit: No Status: Acute Qualifiers: Fever type: unspecified Qualified Code(s): R50.9 - Fever, unspecified (3) History of laryngeal cancer Current Visit: No Status: Acute - Plan Admit to the medical floor Will start IV vancomycin, clindamycin and Azactam. Noted patient has allergies to several classes of antibiotics Pain management as needed. Follow blood cultures Breathing treatment as needed Oxygen therapy as needed. - Advance Directives Does patient have a Living Will: Yes Does patient have a Durable POA for Healthcare: Yes
[2019-04-06] MEDS ORDERED: AZTREONAM 1 GM/VIAL IV SCH (22:43)
[2019-04-06] MEDS: NA CHLORIDE 0.9% 1,000 ML IV SCH (22:43)
[2019-04-06] MEDS ORDERED: ONDANSETRON 4 MG/2 ML VIAL IV PRN (22:43)
[2019-04-06] MEDS ORDERED: VANCOMYCIN 1.25 GM in NA CHLORIDE 0.9% 250 ML IVPB SCH (22:43)
[2019-04-06] MEDS ORDERED: ALBUTEROL 2.5 MG/3 ML NEB SOL NEB PRN (22:43)
[2019-04-06] MEDS ORDERED: AZTREONAM 1 GM/VIAL ONE (23:12)
[2019-04-06] MEDS ORDERED: CLINDAMYCIN 600MG/D5W 1,200 MG/100 ML BAG IV ONE (23:13)
[2019-04-06] MEDS ORDERED: NA CHLORIDE 0.9% 1,000 ML ONE (23:13)
[2019-04-06] MEDS ORDERED: NA CHLORIDE 0.9% 50 ML IV ONE (23:27)
[2019-04-06] MEDS ORDERED: MORPHINE 2 MG/ML SYR ONE (23:50)
[2019-04-06] MEDS: MORPHINE 2 MG/ML SYR IV PRN (23:50)
[2019-04-07] MEDS: IPRATROPIUM BROM 0.5MG/2.5ML NEB SCH ×4 (02:00→20:30)
[2019-04-07] MEDS ORDERED: IPRATROPIUM BROM 0.5MG/2.5ML ONE (02:36)
[2019-04-07 04:01] VITALS: BMI 24.9
[2019-04-07] MEDS: MORPHINE 2 MG/ML SYR IV PRN ×5 (04:06→20:30)
[2019-04-07] MEDS ORDERED: AZTREONAM 1 GM/VIAL ONE (04:36)
[2019-04-07] MEDS ORDERED: NA CHLORIDE 0.9% 100 ML IV ONE (04:43)
[2019-04-07] MEDS ORDERED: AZTREONAM 1 GM in NA CHLORIDE 0.9% 100 ML IV SCH (05:00)
[2019-04-07 05:08] LABS: Absolute Lymphocytes (CBC) 0.6 K/uL (0.7-4.9); Basophils % 0.3 % (0-1.3); Hematocrit 43.1 % (39.6-49.0); Lymphocytes % 6.6 % (15.3-44.8); RBC Red Blood Cell Count 4.06 M/uL (4.33-5.43)
[2019-04-07 05:08] LABS: Urine Appearance CLEAR; Urine Bilirubin NEGATIVE (NEG); Urine Blood TRACE (NEG); Urine Color DK YELLOW; Urine Glucose NEGATIVE (NEG); Urine Protein NEGATIVE (NEG); Urine Specific Gravity 1.025 (1.005-1.030)
[2019-04-07 05:17] LABS: Urine Microscopic Reflex ORDER UMIC
[2019-04-07 05:37] LABS: BUN Blood Urea Nitrogen 5 mg/dL (7-18); Bicarbonate 28 mmol/L (21-32); Glucose Level 98 mg/dL (74-106); Magnesium 1.9 mg/dL (1.8-2.4); Phosphorus 3.6 mg/dL (2.5-4.9); Potassium 3.3 mmol/L (3.5-5.1); Sodium Level 142 mmol/L (136-145)
[2019-04-07 05:41] LABS: Urine Bacteria <20 /HPF (NONE SEEN); Urine Culture Reflex Order NOT NEEDED; Urine Mucus 3+ /HPF (NONE SEEN)
[2019-04-07] MEDS: LEVOTHYROXINE SOD 0.112 MG TAB PO SCH (05:51)
[2019-04-07] MEDS: LEVOTHYROXINE SOD 0.025 MG TAB PO SCH (05:51)
[2019-04-07] MEDS: ACETAMINOPHEN 500 MG TAB PO PRN ×2 (05:57→11:14)
[2019-04-07] MEDS ORDERED: POTASSIUM CL SA 10 MEQ TAB PO ONE ×3 (06:40→14:00)
[2019-04-07] MEDS: VANCOMYCIN 1.5 GM in NA CHLORIDE 0.9% 500 ML IVPB SCH ×2 (08:00→20:11)
[2019-04-07] MEDS: GUAIFENESIN 600 MG SA TAB PO SCH ×2 (08:07→20:11)
[2019-04-07] MEDS: ENOXAPARIN 40 MG/0.4 ML SQ SCH (08:07)
--- NOTE | 2019-04-07 08:59 | EKG ---
Test Date: 2019-04-06 Test Time: 19:22:21 [employer] Internship: CHLOE MEASUREMENT RESULTS: Intervals: Rate: 96 IL: 146 QRSD: 74 QT: 360 QTc: 454 [place]: P: 66 IL: 146 QRS: 39 T: 44 INTERPRETIVE STATEMENTS: Normal sinus rhythm Normal ECG Compared to ECG 03/09/2019 12:04:27 No significant changes Electronically Signed On 04-07-19 08:57:49 ACIDIZER by Mayito Cota
[2019-04-07] MEDS ORDERED: ESCITALOPRAM 20 MG TAB PO SCH (09:00)
[2019-04-07] MEDS ORDERED: NICOTINE 14 MG/PAT TD SCH (09:00)
[2019-04-07] MEDS ORDERED: CLINDAMYCIN INJ 600 MG in NA CHLORIDE 0.9% 50 ML IV SCH ×3 (10:00)
[2019-04-07] MEDS: CLINDAMYCIN INJ 600 MG in NA CHLORIDE 0.9% 50 ML IV SCH ×3 (11:00→23:08)
[2019-04-07] MEDS: AZTREONAM 1 GM in NA CHLORIDE 0.9% 100 ML IV SCH (16:00)
[2019-04-07] MEDS: NA CHLORIDE 0.9% 1,000 ML IV SCH (16:56)
[2019-04-07] MEDS ORDERED: VANCOMYCIN 1.25 GM in NA CHLORIDE 0.9% 250 ML IVPB SCH (19:00)
[2019-04-08] MEDS: AZTREONAM 1 GM in NA CHLORIDE 0.9% 100 ML IV SCH ×2 (00:02→11:15)
[2019-04-08] MEDS: NA CHLORIDE 0.9% 1,000 ML IV SCH (00:02)
[2019-04-08] MEDS: MORPHINE 2 MG/ML SYR IV PRN (00:02)
[2019-04-08] MEDS ORDERED: MORPHINE 4 MG/ML SYR IV PRN (01:17)
[2019-04-08] MEDS ORDERED: CETIRIZINE HCL 5 MG TABLET PO PRN (01:18)
[2019-04-08] MEDS: IPRATROPIUM BROM 0.5MG/2.5ML NEB SCH ×2 (01:35→07:30)
--- NOTE | 2019-04-08 03:52 | DS ---
Date of service: 04/07/2019 Discharge Diagnoses: 1. Cellulitis of the neck, improved. 2. Fever, likely secondary to above. 3. History of laryngeal cancer. 4. Asthma intermittent, stable. 5. Major depressive disorder, stable. 6. History of throat cancer status post complete laryngectomy. 7. Chronic pain syndrome. 8. Hypothyroidism. Hospital Course: Patient is a 48-year-old gentleman with history of laryngeal cancer, status post total laryngectomy, status post percutaneous flap, which has been complicated in the past by abscess and cellulitis, comes in with recurrent cellulitis in the anterior neck. He has had multiple hospitalizations for this issue, most recently about 1 month ago, was seen by Dr. Pardo and was to follow up with Dr. Miller at [facility]. Patient comes in with fever, also seems to have odontogenic infection, which may be causing the cellulitis. Patient has not gone to a dentist, is unable to afford it, however , does have Medicaid. Patient has been counseled regarding followup promptly with the dentist/oral surgeon for evaluation of his dentition and any possible abscess. He voiced understanding. Overall, the patient did well over the course of the hospital stay. He has multiple allergies and therefore, he was started on clindamycin and Azactam, and his blood cultures did not show any growth to date. White blood cell count is normal. There are no signs of sepsis. Procalcitonin is negative. He did have some mild hypokalemia, which was corrected. Patient was then cleared for discharge and sent home in a stable condition. Activity: As tolerated. Medications: As per medication reconciliation list. Followup: Follow up with PCP in 2 to 3 days. Return to ER for worsening condition. Follow up with the dentist/oral surgeon within 1 week. The patient understands the importance of dental care as it relates to his recurrent infections. Physical Examination: General: Awake, alert, and oriented x3. No acute distress. CV: S1, S2. Respiratory: Moving air well bilaterally. Abdomen: Soft, nontender, nondistended. Positive bowel sounds. Extremities: No clubbing, cyanosis, or edema. Neurologic: Nonfocal. Neck: Status post tracheostomy. No signs of redness or swelling. No crusting around the stoma. SA/MODL Voice ID: [id number] Report ID: [id number] MTDDyan
[2019-04-08] MEDS: HYDROMORPHONE HCL 1 MG/ML INJ IV PRN ×2 (04:33→08:04)
[2019-04-08] MEDS: LEVOTHYROXINE SOD 0.112 MG TAB PO SCH (05:32)
[2019-04-08] MEDS: LEVOTHYROXINE SOD 0.025 MG TAB PO SCH (05:32)
[2019-04-08] MEDS: CLINDAMYCIN INJ 600 MG in NA CHLORIDE 0.9% 50 ML IV SCH ×2 (05:32→12:35)
[2019-04-08] MEDS ORDERED: ESCITALOPRAM 20 MG TAB PO SCH ×2 (06:30)
[2019-04-08] MEDS ORDERED: NICOTINE 14 MG/PAT TD SCH (06:30)
[2019-04-08 07:34] LABS: BUN Blood Urea Nitrogen 3 mg/dL (7-18); Bicarbonate 28 mmol/L (21-32); Glucose Level 89 mg/dL (74-106); Potassium 3.9 mmol/L (3.5-5.1); Sodium Level 140 mmol/L (136-145)
[2019-04-08] MEDS ORDERED: POTASSIUM CL SA 10 MEQ TAB PO ONE (07:53)
[2019-04-08] MEDS: VANCOMYCIN 1.5 GM in NA CHLORIDE 0.9% 500 ML IVPB SCH (08:00)
[2019-04-08] MEDS: ENOXAPARIN 40 MG/0.4 ML SQ SCH (08:01)
[2019-04-08] MEDS: GUAIFENESIN 600 MG SA TAB PO SCH (08:01)
[2019-04-08 08:40] VITALS: O2SAT 95
[2019-04-08] MEDS ORDERED: HYDROCODONE/APAP 7.5/325 MG TAB PO PRN (09:59)
--- NOTE | 2019-04-08 11:43 | RAD REPORT ---
EXAM DESCRIPTION: CT - Soft Tissue Neck Wo Contr - 04/08/2019 11:31 am CLINICAL HISTORY: Neck pain//neck swelling/cellulitis COMPARISON: March 2019 TECHNIQUE: Computed axial tomography of the neck was obtained. IV contrast was not requested. Coron al and sagittal reconstruction was performed. All CT scans are performed using dose optimization technique as appropriate and may include automated exposure control or mA/KV adjustment according to patient size. FINDINGS: Laryngectomy. Tracheotomy. No additional gross abnormality the airway The parotid and submandibular glands appear unremarkable. Diffuse edema is present within subcutaneous tissues of predominantly the submental region. Mild eloisa a surrounds the right submandibular gland. Evaluation for abscess is limited secondary to lack of IV contrast. No gross abscess noted. IMPRESSION: Neck cellulitis
[2019-04-08 12:01] VITALS: BP 137/81; TEMP 97.6
--- NOTE | 2019-04-08 16:35 | CON ---
History Of Present Illness: This is a 48-year-old male with significant history of laryngeal carcino ma status post laryngectomy in June 2018. Patient has received chemotherapy in the past, has a trac heostomy wound site. Patient denies any headache, nausea, nausea, vomiting, chest pain, abdominal pa in, constipation, or diarrhea. Came in with recurrent cellulitis of the neck site with recent hospit alization a month ago. Patient complains of neck pain and fevers, which has improved. Currently laila ng treated with IV antibiotic. Temperature was 99.5 in the emergency room. Past Medical History: Laryngeal cancer, status post laryngectomy, depression, asthma, recurrent post op infection, former tobacco user, surgical hypothyroidism, tracheostomy, appendectomy, complete xin ngectomy with reconstruction, knee surgery to both knees, thyroidectomy. Social History: Tobacco positive. Alcohol negative. Family History: Noncontributory. Medications: Azactam, clindamycin, and vancomycin. See MAR for other medications. Allergies: INCLUDE AMPICILLIN, LEVAQUIN, AND IODINE. Review of Systems: A 10-point review was performed. Physical Examination: General: This is a 48-year-old male, sitting in bed, not in any acute cardiopulmonary distress. Vital Signs: Temperature 97.6, pulse 86, respirations 16, blood pressure 137/81. HEENT: Unremarkable. Neck: Supple. Tracheostomy wound noted. Lungs: Basal crackles. Heart: S1, S2. Regular. Abdomen: Soft, nontender. Bowel sounds present. Extremities: No edema. Diagnostic Studies: Chest x-ray done on April 06 shows no abnormalities of the lungs. CT scan of t he soft tissue of the neck shows diffuse edema with subcutaneous tissue, predominantly the submental region, mild edema surrounding the right submandibular gland. Evaluation for abscess is limited seco ndary to lack of IV contrast. No gross abscess noted. Cultures are pending from April 06 and shows no growth for 24 hours. Assessment And Plan: 48-year-old male with significant history of laryngeal carcinoma, status post l aryngectomy and reconstruction, tracheostomy wound with possible cellulitis of neck region as patient 's white count and procalcitonin is normal. Because of his previous history of chemotherapy, we will continue treating patient with oral antibiotic. We will recommend doxycycline and Flagyl. Total co urse of 2 weeks. On discharge, follow the patient as needed. Thank you Dr. Salinas for consult. ROCHELLE/LILLIAN Voice ID: [id number] Report ID: [id number]
--- NOTE | 2019-04-08 18:56 | PN ---
Date of Progress Note: 04/08/2019 Subjective: Patient seen and examined. Chart reviewed and case discussed with RN and Dr. Hills. Juan sanchez was discharged yesterday, however, had worsening of his neck pain along with swelling and redn ess. Therefore, discharge was canceled. Patient did well overnight. This morning complaining of he adache. Medications: List reviewed. Physical Examination: Vital Signs: Temperature 97.4, heart rate 66, blood pressure 148/95, respirations 16, O2 95% on room air. General: Awake, alert, oriented x3, not in any acute distress. CV: S1, S2. Regular rate and rhythm. Peripheral pulses present. Respiratory: Moving air well bilaterally. Abdomen: Abdomen is soft, nontender, nondistended. Positive bowel sounds. Extremities: No clubbing, cyanosis, or edema. Neurologic: Nonfocal. Skin: Neck area has mild erythema, mild swelling in the submandibular area on the right. No fluctua nce or abscess noted. No tenderness to palpation. Laboratory Data: Sodium 140, potassium 3.9, chloride 108, CO2 of 28, BUN 3, creatinine 0.86, glucose 98, calcium 7.9. Blood cultures, no growth to date. CT scan of the neck shows neck cellulitis. Assessment: 48-year-old male with; 1.Cellulitis of the neck, recurrent with failed outpatient treatment, improving. 2.Fever, resolved, likely secondary to above. 3.History of laryngeal cancer, status post laryngectomy and tracheotomy. 4.Intermittent asthma, stable. 5.Major depressive disorder, stable. 6.Chronic pain syndrome, stable. 7.Hypothyroidism, stable. 8.Disposition. The patient is seen by Infectious Disease, Dr. Hills. Recommends oral antibiotics. No acute signs of infection or sepsis. Patient's WBC count is normal. Procalcitonin is normal. C T scan does show cellulitis. Patient has an appointment coming up with the chief of Head And Ne[facility] Coll[facility] rgery at [facility], Dr. Canchola, next week or so, sometime in the middle of April. Patient is recommend ed to follow up with Dr. Canchola for further evaluation of his recurrent neck cellulitis. He will be discharged on clindamycin for a total of 2 weeks. Patient instructed to go to dentist to have denta l examination and have any infected teeth pulled. also at bedside. They understand the treatme nt and understand the importance of dental hygiene and seeing a dentist/oral surgeon. /LILLIAN Voice ID: [id number] Report ID: [id number]
== END 2019-04-08 14:05 | disposition home or self-care (01) ==
LOC: ER 18:21 → ERHOLD 21:47 → 4TH 04-07 03:32
PROVIDERS: ADMIT Internal Medicine; ATTEND Internal Medicine
DX: L03.221 Cellulitis of neck (principal); R50.9 Fever, unspecified; Z85.21 Personal history of malignant neoplasm of larynx; J45.20 Mild intermittent asthma, uncomplicated; Z90.02 Acquired absence of larynx; G89.4 Chronic pain syndrome; E03.9 Hypothyroidism, unspecified
CPT/HCPCS: 96365; 93005; 87040 ×2; 85025 ×2; 80048 ×3; 36415 ×2; 83735 ×2; 82550; 84100; 84132; 85610; 85379; 80076; 83605 ×2; 85730; 80202; 84484; 82553; 83690; 84145; 83880; 70490; 71045; 94640 ×8; 94760 ×4; 96375; 99285; 96366; J1650 ×2; J2270 ×7; J1170 ×2; J7030 ×5; J7040 ×2; J2405; G0378 ×3; 81003; 81015

== ENCOUNTER 2020-08-30 09:25 | Inpatient (IN) | payer MEDICAID ==
--- OUTSIDE RECORDS SUMMARY | 2020-08-30 09:34 | XMS REPORT | Continuity of Care Document ---
:1970 Author Organization [facility] t Address [address] [place] [address] Care Team Providers Name Role Phone Pcp Primary Care Physician Unavailable Wendy Dixon MD Attending Clinician Porfirio KHALIL Attending Clinician Portia PENA M Attending Clinician Singer KHALIL Attending Clinician Eulogio INMAN Attending Clinician Steffanie Perez MD Attending Clinician Sara Sheridan Attending Clinician Doctor Unassigned, Name Attending Clinician Unavailable Michael INMAN Attending Clinician JAELYN FRAIRE Attending Clinician Unavailable ALESSANDRO ORDOÑEZ Attending Clinician Unavailable CONRADO HUERTA Attending Clinician Unavailable Porfirio KHALIL Admitting Clinician Eulogio INMAN Admitting Clinician JAELYN FRAIRE Admitting Clinician Unavailable CONRADO HUERTA Admitting Clinician Unavailable Problems Condition Condition Condition Status Onset Resolution Last Treating Co mments Source Name Details Category Date Date Treatment Clinician Date Neck Neck Disease Active [facility] infection infection 5-14 [facility] Center S/P S/P Disease Active [address] [facility] laryngecto laryngecto 4-16 Emily kes - my my 00:00: Medical 00 Center S/P S/P Disease Active 2019- [facility] percutaneo percutaneo 4-16 Emily kes - us us 00:00: Medical endoscopic endoscopic 00 Ce nter gastrostom gastrostom y (PEG) y (PEG) tube tube placement placement S/P right S/P right Disease Active 2019- [facility] ALT flap ALT flap 4-16 [facility] graft graft 00:[facility]: Medical 00 Center Anemia of Anemia of Disease Active 2018- [facility] chronic chronic 4-16 [facility] - disease disease 00:00: Medical 00 Center Tracheosto Tracheosto Disease Active [address] my care my care 07-10 [facility] - 00[facility]: Medical 00 Center History of History of Disease Active [facility] laryngeal laryngeal 4- [facility] - cancer cancer 00:00: Medical 00 Center Acute on Acute on Disease Active [facility] chronic [facility]16 [facility] - respirator respirator 00:00: Me dical y failure y failure 00 Cent er with with hypoxemia hypoxemia 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 00 Cent er 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 3 [facility] - 00:[facility]: Medical 00 Center Laryngeal Laryngeal Disease Active [facility] mass mass 3-11 [facility] - 00:[facility]: Medical 00 Center Tracheal Tracheal Disease Active 2019- [facility] stenosis stenosis 3- [facility] - 00:[facility] Medical 00 Center Presence Presence Disease Active 2018- [facility] of of 3-11 [facility] - tracheosto tracheosto 00:00: Me dical my my 00 Center Laryngeal Laryngeal Problem Active [facility] cancer cancer [facility] Tracheosto Tracheosto Problem Active [facility] my care my care [facility] Chronic Chronic Problem Active [facility] obstructiv obstructiv Emily kes - e e Memoria pulmonary pulmonary l disease, disease, Outpat i unspecifie unspecifie en t d COPD d COPD Clinics type type Seasonal Seasonal Problem Active [facility] allergies allergies [facility] GERD GERD Problem Active [facility] without without [facility] - esophagiti esophagiti Me moria s s [facility] Essential Essential Problem Active [facility] (primary) (primary) Luke s - hypertensi hypertensi Me moria on on l [facility] Polyneurop Polyneurop Problem Active [facility] athy in athy in [facility] - diseases diseases Memori a classified classified l elsewhere elsewhere Outp ati ent Clinics Postablati Postablati Problem Active [facility] ve ve [facility] - hypothyroi hypothyroi Me moria dism dism l [facility] Malignant Malignant Problem Active [facility] (primary) (primary) [facility] - neoplasm, neoplasm, Silvano giovani unspecifie unspecifie l d d [facility] Reactive Reactive Problem Active [facility] depression depression Emily [facility] - [facility] Allergies, Adverse Reactions, Alerts Allergy Allergy Status Severity Reaction(s) Onset Inactive Treating Comm ents Source Name Type Date Date Clinician Iodine Drug Active Nausea Only [facility] And Allergy 5-14 [facility] - Iodide 00:00: Medical Containi 00 Center ng Products Ampicill Propensi Active Hives, Rash [facility] in ty to 07-10 [facility] - adverse 00:00: Medical reaction 00 Center s Levoflox Propensi Active Hives, Rash [address] acin ty to 07-10 [facility] - adverse 00:00: Medical reaction 00 [place] Iodine Adverse Active vomiting [facility] Reaction [facility] Social History Social Habit Start Date Stop Date Quantity Comments Source History [facility] - Alcohol Std Medical Cente r Drinks History [facility] - Alcohol Binge Medical Ant ter Sex Assigned At [facility] Emily kes - [facility] Tobacco use and 2018-07-15 2018-07-[address] Emily kes - exposure 00:00:00 00:00:00 [facility] Alcohol intake 2018-07-15 2018-07-15 Current non-drinker [facility] - 00:00:00 00:00:00 of alcohol (finding) [facility] History SDOH 2018-06-06 2018-06-[address] [facility] - Alcohol Frequency 00:00:00 00:00:00 [facility] Tobacco Comment 2018-06-06 2018-06-[address] [facility] - 00:00[facility]00 00:00:00 Medical Center Smoking Status Start Date Stop Date Source Current some day smoker 2018-07-15 00:00:[address] [facility] Medications Ordered Filled Start Stop Current Ordering Indication Dosage Frequency Signature Comments Components Source Medication Medication Date Date Medication? Clinician (SIG) Name Name maeve Yes 10mg QD Take [address] m oxalate 5-17 by mouth [facility] - (LEXAPRO) 11:04: daily. Medica l 10 MG 17 Center tablet HYDROcodone Yes 1{tbl} Take [address] -acetaminop 3-23 tablet by Myra es - hen (NORCO 00:00: mouth Medica l 7.5-325) 00 every 6 Center 7.5-325 mg (six) per tablet hours as needed for Pain. Max Daily Amount: 4 tablets BuPROPion BuPROPion Yes Chandrakant [address] HCl ER HCl ER 9-17 Jay in the [facility] - (Smoking (Smoking 00:00: morning Me moria Det) Det) 00 l [facility] Hydrocodone Hydrocodone Yes Chandrakant [address] -Acetaminop -Acetaminop Jay as needed [facility] - hen hen [facility]oria [facility] Xanax Xanax Yes Chandrakant [address] [facility] Clinics Zofran Zofran Yes Chandrakant 1 tablet [facility] Procedures This patient has no known procedures. Plan of Care Planned Activity Planned Date Details Comments Source Future Scheduled 2020-11-[address] [facility] - Test 00:00:00 (Season Ended) [code = Medic al Center INFLUENZA VACCINE (Season Ended)] Future Scheduled 2020 SHINGLES VACCINES ([address] [facility] - Test 00:00:00 of 2) [code = SHINGLES Medic al Center VACCINES (1 of 2)] Future Scheduled 2020-04-[address] [facility] - Test 00:00:00 (12+) [code = [facility] DEPRESSION SCREENING (12+)] Future Scheduled [address] [facility] - Test 00:00:00 (procedure) [code = [facility] 79062027] Future Scheduled 1989 DTAP/TDAP/TD VACCINES [facility] - Test 00:00:00 (1 - Tdap) [code = Medical C enter DTAP/TDAP/TD VACCINES (1 - Tdap)] Future Scheduled 1988 HEPATITIS C SCREENING [facility] - Test 00:00:00 [code = HEPATITIS C Medical Center SCREENING] Future Scheduled [address] [facility] - Test 00:00:00 0-64 YRS (1 of 3 - Medical C enter PCV13) [code = PNEUMOCOCCAL VACCINE 0-64 YRS (1 of 3 - PCV13)] Future Scheduled [address] [facility] Myra es - Test 00:00:00 malignant neoplasm of Medica l Center colon (procedure) [code = 524417122] Encounters Start End Encounter Admission Attending Care Care Encounter Source Date/Time Date/Time Type Type Clinicians Facility Department ID 2020-08-26 2020-08-28 [facility] MaciejNyla carias [facility] [id number] 09:07:00 11:38:00 Encounter Dread Monroy [id number] [place] [id number] [place] [id number] 2020-08-24 2020-08-24 Transition Manjinder Pearce [id number] 00:00:00 00:00:00 of Care Debra Sneed [id number] [place] [id number] 2020-08-22 2020-08-23 [facility] Titus Montague [facility] [id number] 09:28:00 16:15:00 Encounter Chidi Krishnan [id number] [place] [id number] [place] [id number] 2020-06-15 2020-06-15 Refsophie Perez [facility] [id number] 00:00:00 00:00:00 WonVertical Acuity [id number] [place] [id number] Professio [phone] [place] [address] One 2020-04-20 2020-04-20 Emergency [facility] [id number] 16:13:00 21:39:00 Kary Sara Matt [id number] [place] [id number] [place] [id number] 2020-04-20 2020-04-[address] [facility] [id number] 00:00:00 00:00:00 [facility] [id number] [place] [id number] Professio [phone] [place] [address] [address] 2020-03-28 2020-03-28 Orders Doctor CARY [id number] 00:00:00 00:00:00 Only Unassigned, SEAN [id number] [place] [facility] [id number] 2020-03-21 2020-03-[address] [facility] [id number] 00:00:00 00:00:00 [facility] [id number] [place] [id number] Professio [phone] [place] [address] [address] One 2020-03-15 2020-03-15 [facility] [id number] 00:00:00 00:00:00 [facility] [id number] [place] [id number] Professio [phone] [place] [address] [address] 2020-03-07 2020-03-07 [facility] [id number] 09:21:46 10:08:12 Visit Cindy Gutierrez [id number] [place] [id number] Professio [id number] [address] 2018-06-13 2018-06-13 [facility] [id number] 13:53:00 13:53:00 [facility] Medicine Outpati ent Clinics 2018-03-18 2018-03-18 [facility] [id number] 16:22:00 16:22:00 t [facility] Outpati ent Clinics 2018-03-03 2018-03-03 [facility] [id number] 15:05:00 15:05:00 t [facility] Medicine Outpati ent Clinics 2018-01-02 2018-01-02 [facility] [id number] 11:45:00 11:45:00 t [facility] Medicine Outpati ent Clinics 2017-12-16 2017-12-16 [facility] [id number] 09:45:00 09:45:00 t [facility] Medicine Outpati ent Clinics 2017-10-16 2017-10-16 [facility] [id number] 14:17:00 14:17:00 t [facility] Medicine Outpati ent Clinics 2017-10-15 2017-10-15 [facility] [id number] 11:31:00 11:31:00 t [facility] Outpati ent Clinics 2017-10-09 2017-10-09 [facility] [id number] 15:30:00 15:30:00 [facility] Outpati ent Clinics Results Test Description Test Time Test Comments Results Result Comments Source CREATININE 2018-08-15 07:31:00 Test Item Value Reference Range Interpretation Comme nts CREATININE (BEAKER) (test 0.63 mg/dL 0.57-1.25 code = 358) EGFR (BEAKER) (test code = 136 mL/min/1.73 sq m ESTIMATED GFR IS NOT 1092) ACCURATE CRE ATININE CLEARANCE IN MO EDICTING GLOMERULAR FILT RATION RATE. ESTIMATED GFR IS NOT APPLICABLE FOR DIALYSIS PATIENTS. WOUND CULTURE + GRAM [id number] 16:32:00 Test Item Value Reference Range Interpretation Comments CULTURE (BEAKER) (test No growth code = 1095) GRAM STAIN RESULT 2+ WBCs (BEAKER) (test code = 1123) GRAM STAIN RESULT 1+ gram positive cocci (BEAKER) (test code = in pairs 04781) GRAM STAIN RESULT <1+ gram variable rods (BEAKER) (test code = 83613) VANCOMYCIN LEVEL, [id number] 23:37:00 Test Item Value Reference Range Interpretation Comments VANCOMYCIN TROUGH (BEAKER) (test 7.5 ug/mL 10.0-20.0 L code = 522) FL, ESOPH, SWALLOW FUNCTION, WITH CINE OR [id number] 18:19:00Cervical esophagram with GASTROGAFFINReason for exam:->status post [...] Fluoroscopy time: 0.65 minutes. 46 images. Signed: [facility] Verified Date/Time: 08/12/2018 18:19:29 Reading Location: [address] Consult Reading Room CBC W/PLT COUNT & AUTO [id number] 04:39:00 Test Item Value Reference Range Interpretation Comments WHITE BLOOD CELL COUNT (BEAKER) 7.1 K/ L 3.5-10.5 (test code = 775) RED BLOOD CELL COUNT (BEAKER) 3.77 M/ L 4.63-6.08 L (test code = 761) HEMOGLOBIN (BEAKER) (test code = 10.9 GM/DL 13.7-17.5 L 410) HEMATOCRIT (BEAKER) (test code = 35.7 % 40.1-51.0 L 411) MEAN CORPUSCULAR VOLUME (BEAKER) 94.7 fL 79.0-92.2 H (test code = 753) MEAN CORPUSCULAR HEMOGLOBIN 28.9 pg 25.7-32.2 (BEAKER) (test code = 751) MEAN CORPUSCULAR HEMOGLOBIN CONC 30.5 GM/DL 32.3-36.5 L (BEAKER) (test code = 752) RED CELL DISTRIBUTION WIDTH 14.6 % 11.6-14.4 H (BEAKER) (test code = 412) PLATELET COUNT (BEAKER) (test 318 K/CU MM 150-450 code = 756) MEAN PLATELET VOLUME (BEAKER) 9.8 fL 9.4-12.4 (test code = 754) NUCLEATED RED BLOOD CELLS 0 /100 WBC 0-0 (BEAKER) (test code = 413) NEUTROPHILS RELATIVE PERCENT 72 % (BEAKER) (test code = 429) LYMPHOCYTES RELATIVE PERCENT 10 % (BEAKER) (test code = 430) MONOCYTES RELATIVE PERCENT 12 % (BEAKER) (test code = 431) EOSINOPHILS RELATIVE PERCENT 4 % (BEAKER) (test code = 432) BASOPHILS RELATIVE PERCENT 1 % (BEAKER) (test code = 437) NEUTROPHILS ABSOLUTE COUNT 5.08 K/ L 1.78-5.38 (BEAKER) (test code = 670) LYMPHOCYTES ABSOLUTE COUNT 0.68 K/ L 1.32-3.57 L (BEAKER) (test code = 414) MONOCYTES ABSOLUTE COUNT (BEAKER) 0.86 K/ L 0.30-0.82 H (test code = 415) EOSINOPHILS ABSOLUTE COUNT 0.29 K/ L 0.04-0.54 (BEAKER) (test code = 416) BASOPHILS ABSOLUTE COUNT (BEAKER) 0.04 K/ L 0.01-0.08 (test code = 417) IMMATURE GRANULOCYTES-RELATIVE 1 % 0-1 PERCENT (BEAKER) (test code = 2801) TSH/FREE T4 IF [id number] 18:11:00 Test Item Value Reference Range Interpretation Comments THYROID STIMULATING HORMONE 0.75 uIU/mL 0.35-4.94 (BEAKER) (test code = 772) CBC W/PLT COUNT & AUTO [id number] 17:31:00 Test Item Value Reference Range Interpretation Comments WHITE BLOOD CELL COUNT (BEAKER) 9.2 K/ L 3.5-10.5 (test code = 775) RED BLOOD CELL COUNT (BEAKER) 3.78 M/ L 4.63-6.08 L (test code = 761) HEMOGLOBIN (BEAKER) (test code = 11.0 GM/DL 13.7-17.5 L 410) HEMATOCRIT (BEAKER) (test code = 35.4 % 40.1-51.0 L 411) MEAN CORPUSCULAR VOLUME (BEAKER) 93.7 fL 79.0-92.2 H (test code = 753) MEAN CORPUSCULAR HEMOGLOBIN 29.1 pg 25.7-32.2 (BEAKER) (test code = 751) MEAN CORPUSCULAR HEMOGLOBIN CONC 31.1 GM/DL 32.3-36.5 L (BEAKER) (test code = 752) RED CELL DISTRIBUTION WIDTH 14.7 % 11.6-14.4 H (BEAKER) (test code = 412) PLATELET COUNT (BEAKER) (test 323 K/CU MM 150-450 code = 756) MEAN PLATELET VOLUME (BEAKER) 9.6 fL 9.4-12.4 (test code = 754) NUCLEATED RED BLOOD CELLS 0 /100 WBC 0-0 (BEAKER) (test code = 413) NEUTROPHILS RELATIVE PERCENT 75 % (BEAKER) (test code = 429) LYMPHOCYTES RELATIVE PERCENT 9 % (BEAKER) (test code = 430) MONOCYTES RELATIVE PERCENT 12 % (BEAKER) (test code = 431) EOSINOPHILS RELATIVE PERCENT 3 % (BEAKER) (test code = 432) BASOPHILS RELATIVE PERCENT 0 % (BEAKER) (test code = 437) NEUTROPHILS ABSOLUTE COUNT 6.86 K/ L 1.78-5.38 H (BEAKER) (test code = 670) LYMPHOCYTES ABSOLUTE COUNT 0.81 K/ L 1.32-3.57 L (BEAKER) (test code = 414) MONOCYTES ABSOLUTE COUNT (BEAKER) 1.13 K/ L 0.30-0.82 H (test code = 415) EOSINOPHILS ABSOLUTE COUNT 0.24 K/ L 0.04-0.54 (BEAKER) (test code = 416) BASOPHILS ABSOLUTE COUNT (BEAKER) 0.04 K/ L 0.01-0.08 (test code = 417) IMMATURE GRANULOCYTES-RELATIVE 1 % 0-1 PERCENT (BEAKER) (test code = 2801) TISSUE [id number] 10:26:00Surgical Pathology Report Case: [id number] Authorizing Provider: Guilherme Fraire MD Collected: 07/14/2018 1023 Ordering Location: [facility] Received: 07/14/2018 1029 SERVICES Pathologist: Jackie Hardy MD Specimens: A) - Soft Tissue, Other, rule out left superior parathyroid B) -Soft Tissue, Other, NECK DISSECTION LEVEL 1A C) - Soft Tissue, Other, TOTAL LARYNGECTOMY; PLEASE CHECK TRACHEAL AND PHARYNGEAL MARGINS D) - Soft Tissue, Other, LEFT NECK DISSECTION LEVEL 2 A. 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 The specimen is received fresh for intraoperative consultation labeled with patient's name "KEATON", medical record number, and "rule out left superior parathyroid." It consists of a piece of paige-pink tissue measuring 0.4 x 0.3 x 0.2 cm. A touch preparation slide is made. The specimen is entirely embedded as FSA1 for frozen section diagnosis.B. The specimen is received in formalin labeled with patient's name "KEATON", medical record number, and "neck dissection level 1A." It consists of a piece of fibroadipose tissue measuring 3.1 x 3.0 x 1.0 cm. Serial sectioning reveals no lymph node grossly. The specimen is entirely submitted in cassettes B1 through B6.C. The specimen is received fresh for intraoperative consultation labeled with patient's name "KEATON", medical record number, and "total laryngectomy." It [...] longitudinally and reveals no gross mass lesion. Screen Printing Loader Unloader sections are submitted as follows: C6 - [...] received in formalin labeled with patient's name "KEATON", medical record number, and "left neck dissection [...] shows ulcer and granulation tissue. On C19, Alger-8 positivity confirms portion of thyroidtissue present. On [...] stains. Immunohistochemistry technical testing was performed at [facility], Pathology Laboratory where it was developed [...] clinical laboratory testing.CBC W/PLT COUNT & AUTO [id number] 09:34:00 Test Item Value Reference Range Interpretation Comments WHITE BLOOD CELL COUNT (BEAKER) 10.8 K/ L 3.5-10.5 H (test code = 775) RED BLOOD CELL COUNT (BEAKER) 3.45 M/ L 4.63-6.08 L (test code = 761) HEMOGLOBIN (BEAKER) (test code = 10.2 GM/DL 13.7-17.5 L 410) HEMATOCRIT (BEAKER) (test code = 34.1 % 40.1-51.0 L 411) MEAN CORPUSCULAR VOLUME (BEAKER) 98.8 fL 79.0-92.2 H (test code = 753) MEAN CORPUSCULAR HEMOGLOBIN 29.6 pg 25.7-32.2 (BEAKER) (test code = 751) MEAN CORPUSCULAR HEMOGLOBIN CONC 29.9 GM/DL 32.3-36.5 L (BEAKER) (test code = 752) RED CELL DISTRIBUTION WIDTH 15.7 % 11.6-14.4 H (BEAKER) (test code = 412) PLATELET COUNT (BEAKER) (test 522 K/CU MM 150-450 H code = 756) MEAN PLATELET VOLUME (BEAKER) 10.2 fL 9.4-12.4 (test code = 754) NUCLEATED RED BLOOD CELLS 0 /100 WBC 0-0 (BEAKER) (test code = 413) (CELLAVISION MANUAL DIFF)2018-07-24 09:34:00 Test Item Value Reference Range Interpretation Comments NEUTROPHILS - REL 80 % (CELLAVISION)(BEAKER) (test code = 2816) LYMPHOCYTES - REL 2 % (CELLAVISION)(BEAKER) (test code = 2817) MONOCYTES - REL 15 % (CELLAVISION)(BEAKER) (test code = 2818) EOSINOPHILS - REL 3 % (CELLAVISION)(BEAKER) (test code = 2819) NEUTROPHILS - ABS 8.64 K/ul 1.78-5.38 H (CELLAVISION)(BEAKER) (test code = 2830) LYMPHOCYTES - ABS 0.22 K/ul 1.32-3.57 L (CELLAVISION)(BEAKER) (test code = 2831) MONOCYTES - ABS 1.62 K/uL 0.30-0.82 H (CELLAVISION)(BEAKER) (test code = 2832) EOSINOPHILS - ABS 0.32 K/uL 0.04-0.54 (CELLAVISION)(BEAKER) (test code = 2834) TOTAL COUNTED (BEAKER) (test code = 100 1351) WBC MORPHOLOGY (BEAKER) (test code Normal = 487) LARGE PLT(BEAKER) (test code = Present 2156) POLYCHROMATOPHILLIC RBCS(BEAKER) 1+ few (test code = 478) ARTIFACT (CELLAVISION)(BEAKER) Present (test code = 3432) PLATELET CONCENTRATION Increased (CELLAVISION)(BEAKER) (test code = 3438) Received comment: User comments: Slide comments:[id number] 05:40:00 Test Item Value Reference Range Interpretation Comments PHOSPHORUS (BEAKER) (test code = 4.8 mg/dL 2.3-4.7 H 604) [id number] 05:40:00 Test Item Value Reference Range Interpretation Comments MAGNESIUM (BEAKER) (test code = 2.1 mg/dL 1.6-2.6 627) BASIC METABOLIC [id number] 05:40:00 Test Item Value Reference Range Interpretation Comments SODIUM (BEAKER) 140 meq/L 136-145 (test code = 381) POTASSIUM (BEAKER) 4.0 meq/L 3.5-5.1 (test code = 379) CHLORIDE (BEAKER) 99 meq/L 98-107 (test code = 382) CO2 (BEAKER) (test 30 meq/L 22-29 H code = 355) BLOOD UREA NITROGEN 8 mg/dL 7-21 (BEAKER) (test code = 354) CREATININE (BEAKER) 0.71 mg/dL 0.57-1.25 (test code = 358) GLUCOSE RANDOM 90 mg/dL 70-105 (BEAKER) (test code = 652) CALCIUM (BEAKER) 8.8 mg/dL 8.4-10.2 (test code = 697) EGFR (BEAKER) (test 118 mL/min/1.73 ESTIM ATED GFR IS code = 1092) sq m NOT ACCURATE CREATININE CLEARANCE IN PREDICTING GLOMERULAR FILTRATION RATE . ESTIMATED GFR I S NOT APPLICABLE FOR DIALYSIS PATIEN TS. CBC W/PLT COUNT & AUTO [id number] 11:50:00 Test Item Value Reference Range Interpretation Comments WHITE BLOOD CELL COUNT (BEAKER) 13.2 K/ L 3.5-10.5 H (test code = 775) RED BLOOD CELL COUNT (BEAKER) 3.41 M/ L 4.63-6.08 L (test code = 761) HEMOGLOBIN (BEAKER) (test code = 10.2 GM/DL 13.7-17.5 L 410) HEMATOCRIT (BEAKER) (test code = 33.2 % 40.1-51.0 L 411) MEAN CORPUSCULAR VOLUME (BEAKER) 97.4 fL 79.0-92.2 H (test code = 753) MEAN CORPUSCULAR HEMOGLOBIN 29.9 pg 25.7-32.2 (BEAKER) (test code = 751) MEAN CORPUSCULAR HEMOGLOBIN CONC 30.7 GM/DL 32.3-36.5 L (BEAKER) (test code = 752) RED CELL DISTRIBUTION WIDTH 15.5 % 11.6-14.4 H (BEAKER) (test code = 412) PLATELET COUNT (BEAKER) (test 473 K/CU MM 150-450 H code = 756) MEAN PLATELET VOLUME (BEAKER) 10.0 fL 9.4-12.4 (test code = 754) NUCLEATED RED BLOOD CELLS 0 /100 WBC 0-0 (BEAKER) (test code = 413) (CELLAVISION MANUAL DIFF)2018-07-23 11:50:00 Test Item Value Reference Range Interpretation Comments NEUTROPHILS - REL 80 % (CELLAVISION)(BEAKER) (test code = 2816) LYMPHOCYTES - REL 8 % (CELLAVISION)(BEAKER) (test code = 2817) MONOCYTES - REL 4 % (CELLAVISION)(BEAKER) (test code = 2818) EOSINOPHILS - REL 1 % (CELLAVISION)(BEAKER) (test code = 2819) MYELOCYTES - REL 2 % 0-0 H (CELLAVISION)(BEAKER) (test code = 2822) BANDS - REL (CELLAVISION)(BEAKER) 4 % 0-10 (test code = 2826) NEUTROPHILS - ABS 10.56 K/ul 1.78-5.38 H (CELLAVISION)(BEAKER) (test code = 2830) LYMPHOCYTES - ABS 1.06 K/ul 1.32-3.57 L (CELLAVISION)(BEAKER) (test code = 2831) MONOCYTES - ABS 0.53 K/uL 0.30-0.82 (CELLAVISION)(BEAKER) (test code = 2832) EOSINOPHILS - ABS 0.13 K/uL 0.04-0.54 (CELLAVISION)(BEAKER) (test code = 2834) MYELOCYTES-ABS 0.26 K/uL 0.00-0.00 H (CELLAVISION)(BEAKER) (test code = 2837) BANDS - ABS (CELLAVISION)(BEAKER) 0.53 K/uL 0.00-0.80 (test code = 2840) TOTAL COUNTED (BEAKER) (test code 100 = 1351) WBC MORPHOLOGY (BEAKER) (test Normal code = 487) PLT MORPHOLOGY (BEAKER) (test Normal code = 486) ANISOCYTOSIS (BEAKER) (test code 2+ moderate = 961) MICROCYTES (BEAKER) (test code = 1+ few 965) ARTIFACT (CELLAVISION)(BEAKER) Present (test code = 3432) PLATELET CONCENTRATION Increased (CELLAVISION)(BEAKER) (test code = 3438) Received comment: User comments: Slide comments:SPUTUM CULTURE + GRAM STAIN 2018-07-23 10:46:00 Test Item Value Reference Range Interpretation Comments CULTURE (BEAKER) <1+ Normal respiratory (test code = 1095) maximo present GRAM STAIN RESULT <1+ White blood cells (BEAKER) (test code = seen 1123) GRAM STAIN RESULT 0-5 epithelial cells (BEAKER) (test code = 65804) GRAM STAIN RESULT No organisms seen (BEAKER) (test code = 14769) [id number] 06:07:00 Test Item Value Reference Range Interpretation Comments PHOSPHORUS (BEAKER) (test code = 4.6 mg/dL 2.3-4.7 604) [id number] 06:07:00 Test Item Value Reference Range Interpretation Comments MAGNESIUM (BEAKER) (test code = 2.0 mg/dL 1.6-2.6 627) BASIC METABOLIC [id number] 06:07:00 Test Item Value Reference Range Interpretation Comments SODIUM (BEAKER) 140 meq/L 136-145 (test code = 381) POTASSIUM (BEAKER) 4.3 meq/L 3.5-5.1 (test code = 379) CHLORIDE (BEAKER) 101 meq/L 98-107 (test code = 382) CO2 (BEAKER) (test 31 meq/L 22-29 H code = 355) BLOOD UREA NITROGEN 10 mg/dL 7-21 (BEAKER) (test code = 354) CREATININE (BEAKER) 0.67 mg/dL 0.57-1.25 (test code = 358) GLUCOSE RANDOM 111 mg/dL 70-105 H (BEAKER) (test code = 652) CALCIUM (BEAKER) 8.7 mg/dL 8.4-10.2 (test code = 697) EGFR (BEAKER) (test 127 mL/min/1.73 ESTIM ATED GFR IS code = 1092) sq m NOT ACCURATE CREATININE CLEARANCE IN PREDICTING GLOMERULAR FILTRATION RATE . ESTIMATED GFR I S NOT APPLICABLE FOR DIALYSIS PATIEN TS. VANCOMYCIN LEVEL, [id number] 23:12:00 Test Item Value Reference Range Interpretation Comments VANCOMYCIN TROUGH (BEAKER) (test 3.2 ug/mL 10.0-20.0 L code = 522) POCT-GLUCOSE [id number] 17:57:00 Test Item Value Reference Range Interpretation Comments POC-GLUCOSE METER 105 mg/dL 70-110 TESTED AT [facility] 6720 (BEAKER) (test code = ALI[place]QUE[place] 9192) [address] CBC W/PLT COUNT & AUTO [id number] 13:00:00 Test Item Value Reference Range Interpretation Comments WHITE BLOOD CELL COUNT (BEAKER) 12.5 K/ L 3.5-10.5 H (test code = 775) RED BLOOD CELL COUNT (BEAKER) 3.46 M/ L 4.63-6.08 L (test code = 761) HEMOGLOBIN (BEAKER) (test code = 10.4 GM/DL 13.7-17.5 L 410) HEMATOCRIT (BEAKER) (test code = 33.5 % 40.1-51.0 L 411) MEAN CORPUSCULAR VOLUME (BEAKER) 96.8 fL 79.0-92.2 H (test code = 753) MEAN CORPUSCULAR HEMOGLOBIN 30.1 pg 25.7-32.2 (BEAKER) (test code = 751) MEAN CORPUSCULAR HEMOGLOBIN CONC 31.0 GM/DL 32.3-36.5 L (BEAKER) (test code = 752) RED CELL DISTRIBUTION WIDTH 15.4 % 11.6-14.4 H (BEAKER) (test code = 412) PLATELET COUNT (BEAKER) (test 425 K/CU MM 150-450 code = 756) MEAN PLATELET VOLUME (BEAKER) 10.1 fL 9.4-12.4 (test code = 754) NUCLEATED RED BLOOD CELLS 0 /100 WBC 0-0 (BEAKER) (test code = 413) (CELLAVISION MANUAL DIFF)[id number] 13:00:00 Test Item Value Reference Range Interpretation Comments NEUTROPHILS - REL 80 % (CELLAVISION)(BEAKER) (test code = 2816) LYMPHOCYTES - REL 4 % (CELLAVISION)(BEAKER) (test code = 2817) MONOCYTES - REL 6 % (CELLAVISION)(BEAKER) (test code = 2818) EOSINOPHILS - REL 6 % (CELLAVISION)(BEAKER) (test code = 2819) BASOPHILS - REL 1 % (CELLAVISION)(BEAKER) (test code = 2820) MYELOCYTES - REL 3 % 0-0 H (CELLAVISION)(BEAKER) (test code = 2822) NEUTROPHILS - ABS 10.00 K/ul 1.78-5.38 H (CELLAVISION)(BEAKER) (test code = 2830) LYMPHOCYTES - ABS 0.50 K/ul 1.32-3.57 L (CELLAVISION)(BEAKER) (test code = 2831) MONOCYTES - ABS 0.75 K/uL 0.30-0.82 (CELLAVISION)(BEAKER) (test code = 2832) EOSINOPHILS - ABS 0.75 K/uL 0.04-0.54 H (CELLAVISION)(BEAKER) (test code = 2834) BASOPHILS - ABS 0.13 K/uL 0.01-0.08 H (CELLAVISION)(BEAKER) (test code = 2835) MYELOCYTES-ABS 0.38 K/uL 0.00-0.00 H (CELLAVISION)(BEAKER) (test code = 2837) TOTAL COUNTED (BEAKER) (test code 100 = 1351) WBC MORPHOLOGY (BEAKER) (test Normal code = 487) PLT MORPHOLOGY (BEAKER) (test Normal code = 486) POLYCHROMATOPHILLIC RBCS(BEAKER) 1+ few (test code = 478) ANISOCYTOSIS (BEAKER) (test code 1+ few = 961) MACROCYTES (BEAKER) (test code = 1+ few 964) POIKILOCYTES (BEAKER) (test code 2+ moderate = 966) ARTIFACT (CELLAVISION)(BEAKER) Present (test code = 3432) PLATELET CONCENTRATION Adequate (CELLAVISION)(BEAKER) (test code = 3438) Received comment: User comments: Slide comments:POCT-GLUCOSE [id number] 12:50:00 Test Item Value Reference Range Interpretation Comments POC-GLUCOSE METER 117 mg/dL 70-110 H TESTED AT [facility] 6720 (BEAKER) (test code = ALIYA Ruiz JIMMY MASON 1538) [address] [id number] 07:00:00 Test Item Value Reference Range Interpretation Comments PHOSPHORUS (BEAKER) (test code = 4.2 mg/dL 2.3-4.7 604) [id number] 07:00:00 Test Item Value Reference Range Interpretation Comments MAGNESIUM (BEAKER) (test code = 1.9 mg/dL 1.6-2.6 627) BASIC METABOLIC [id number] 07:00:00 Test Item Value Reference Range Interpretation Comments SODIUM (BEAKER) 140 meq/L 136-145 (test code = 381) POTASSIUM (BEAKER) 4.0 meq/L 3.5-5.1 (test code = 379) CHLORIDE (BEAKER) 101 meq/L 98-107 (test code = 382) CO2 (BEAKER) (test 32 meq/L 22-29 H code = 355) BLOOD UREA NITROGEN 9 mg/dL 7-21 (BEAKER) (test code = 354) CREATININE (BEAKER) 0.62 mg/dL 0.57-1.25 (test code = 358) GLUCOSE RANDOM 104 mg/dL 70-105 (BEAKER) (test code = 652) CALCIUM (BEAKER) 8.4 mg/dL 8.4-10.2 (test code = 697) EGFR (BEAKER) (test 138 mL/min/1.73 ESTIM ATED GFR IS code = 1092) sq m NOT ACCURATE CREATININE CLEARANCE IN PREDICTING GLOMERULAR FILTRATION RATE . ESTIMATED GFR I S NOT APPLICABLE FOR DIALYSIS PATIEN TS. CBC W/PLT COUNT & AUTO [id number] 10:11:00 Test Item Value Reference Range Interpretation Comments WHITE BLOOD CELL COUNT (BEAKER) 10.8 K/ L 3.5-10.5 H (test code = 775) RED BLOOD CELL COUNT (BEAKER) 3.48 M/ L 4.63-6.08 L (test code = 761) HEMOGLOBIN (BEAKER) (test code = 10.6 GM/DL 13.7-17.5 L 410) HEMATOCRIT (BEAKER) (test code = 33.9 % 40.1-51.0 L 411) MEAN CORPUSCULAR VOLUME (BEAKER) 97.4 fL 79.0-92.2 H (test code = 753) MEAN CORPUSCULAR HEMOGLOBIN 30.5 pg 25.7-32.2 (BEAKER) (test code = 751) MEAN CORPUSCULAR HEMOGLOBIN CONC 31.3 GM/DL 32.3-36.5 L (BEAKER) (test code = 752) RED CELL DISTRIBUTION WIDTH 15.4 % 11.6-14.4 H (BEAKER) (test code = 412) PLATELET COUNT (BEAKER) (test 431 K/CU MM 150-450 code = 756) MEAN PLATELET VOLUME (BEAKER) 10.0 fL 9.4-12.4 (test code = 754) NUCLEATED RED BLOOD CELLS 0 /100 WBC 0-0 (BEAKER) (test code = 413) (CELLAVISION MANUAL DIFF)2018-07-21 10:11:00 Test Item Value Reference Range Interpretation Comments NEUTROPHILS - REL 77 % (CELLAVISION)(BEAKER) (test code = 2816) LYMPHOCYTES - REL 3 % (CELLAVISION)(BEAKER) (test code = 2817) MONOCYTES - REL 7 % (CELLAVISION)(BEAKER) (test code = 2818) EOSINOPHILS - REL 3 % (CELLAVISION)(BEAKER) (test code = 2819) MYELOCYTES - REL 4 % 0-0 H (CELLAVISION)(BEAKER) (test code = 2822) PROMYELOCYTES - REL 1 % 0-0 H (CELLAVSION)(BEAKER) (test code = 2825) BANDS - REL (CELLAVISION)(BEAKER) 5 % 0-10 (test code = 2826) NEUTROPHILS - ABS 8.32 K/ul 1.78-5.38 H (CELLAVISION)(BEAKER) (test code = 2830) LYMPHOCYTES - ABS 0.32 K/ul 1.32-3.57 L (CELLAVISION)(BEAKER) (test code = 2831) MONOCYTES - ABS 0.76 K/uL 0.30-0.82 (CELLAVISION)(BEAKER) (test code = 2832) EOSINOPHILS - ABS 0.32 K/uL 0.04-0.54 (CELLAVISION)(BEAKER) (test code = 2834) MYELOCYTES-ABS 0.43 K/uL 0.00-0.00 H (CELLAVISION)(BEAKER) (test code = 2837) PROMYELOCYTES - ABS 0.11 K/uL 0.00-0.00 H (CELLAVISION)(BEAKER) (test code = 2838) BANDS - ABS (CELLAVISION)(BEAKER) 0.54 K/uL 0.00-0.80 (test code = 2840) TOTAL COUNTED (BEAKER) (test code 100 = 1351) WBC MORPHOLOGY (BEAKER) (test Normal code = 487) PLT MORPHOLOGY (BEAKER) (test Normal code = 486) ANISOCYTOSIS (BEAKER) (test code 2+ moderate = 961) MICROCYTES (BEAKER) (test code = 2+ moderate 965) ARTIFACT (CELLAVISION)(BEAKER) Present (test code = 3432) PLATELET CONCENTRATION Adequate (CELLAVISION)(BEAKER) (test code = 3438) Received comment: User comments: Slide comments:[id number] 05:39:00 Test Item Value Reference Range Interpretation Comments PHOSPHORUS (BEAKER) (test code = 5.1 mg/dL 2.3-4.7 H 604) [id number] 05:39:00 Test Item Value Reference Range Interpretation Comments MAGNESIUM (BEAKER) (test code = 2.0 mg/dL 1.6-2.6 627) BASIC METABOLIC [id number] 05:39:00 Test Item Value Reference Range Interpretation Comments SODIUM (BEAKER) 139 meq/L 136-145 (test code = 381) POTASSIUM (BEAKER) 4.3 meq/L 3.5-5.1 (test code = 379) CHLORIDE (BEAKER) 100 meq/L 98-107 (test code = 382) CO2 (BEAKER) (test 29 meq/L 22-29 code = 355) BLOOD UREA NITROGEN 10 mg/dL 7-21 (BEAKER) (test code = 354) CREATININE (BEAKER) 0.64 mg/dL 0.57-1.25 (test code = 358) GLUCOSE RANDOM 97 mg/dL 70-105 (BEAKER) (test code = 652) CALCIUM (BEAKER) 8.6 mg/dL 8.4-10.2 (test code = 697) EGFR (BEAKER) (test 133 mL/min/1.73 ESTIM ATED GFR IS code = 1092) sq m NOT ACCURATE CREATININE CLEARANCE IN PREDICTING GLOMERULAR FILTRATION RATE . ESTIMATED GFR I S NOT APPLICABLE FOR DIALYSIS PATIEN TS. VANCOMYCIN LEVEL, [id number] 23:38:00 Test Item Value Reference Range Interpretation Comments VANCOMYCIN TROUGH (BEAKER) (test 5.5 ug/mL 10.0-20.0 L code = 522) CBC W/PLT COUNT & AUTO [id number] 10:44:00 Test Item Value Reference Range Interpretation Comments WHITE BLOOD CELL COUNT (BEAKER) 14.3 K/ L 3.5-10.5 H (test code = 775) RED BLOOD CELL COUNT (BEAKER) 3.43 M/ L 4.63-6.08 L (test code = 761) HEMOGLOBIN (BEAKER) (test code = 10.4 GM/DL 13.7-17.5 L 410) HEMATOCRIT (BEAKER) (test code = 33.5 % 40.1-51.0 L 411) MEAN CORPUSCULAR VOLUME (BEAKER) 97.7 fL 79.0-92.2 H (test code = 753) MEAN CORPUSCULAR HEMOGLOBIN 30.3 pg 25.7-32.2 (BEAKER) (test code = 751) MEAN CORPUSCULAR HEMOGLOBIN CONC 31.0 GM/DL 32.3-36.5 L (BEAKER) (test code = 752) RED CELL DISTRIBUTION WIDTH 15.7 % 11.6-14.4 H (BEAKER) (test code = 412) PLATELET COUNT (BEAKER) (test 402 K/CU MM 150-450 code = 756) MEAN PLATELET VOLUME (BEAKER) 10.6 fL 9.4-12.4 (test code = 754) NUCLEATED RED BLOOD CELLS 0 /100 WBC 0-0 (BEAKER) (test code = 413) (CELLAVISION MANUAL DIFF)2018-07-20 10:44:00 Test Item Value Reference Range Interpretation Comments NEUTROPHILS - REL 83 % (CELLAVISION)(BEAKER) (test code = 2816) LYMPHOCYTES - REL 2 % (CELLAVISION)(BEAKER) (test code = 2817) MONOCYTES - REL 9 % (CELLAVISION)(BEAKER) (test code = 2818) EOSINOPHILS - REL 3 % (CELLAVISION)(BEAKER) (test code = 2819) MYELOCYTES - REL 1 % 0-0 H (CELLAVISION)(BEAKER) (test code = 2822) BANDS - REL (CELLAVISION)(BEAKER) 2 % 0-10 (test code = 2826) NEUTROPHILS - ABS 11.87 K/ul 1.78-5.38 H (CELLAVISION)(BEAKER) (test code = 2830) LYMPHOCYTES - ABS 0.29 K/ul 1.32-3.57 L (CELLAVISION)(BEAKER) (test code = 2831) MONOCYTES - ABS 1.29 K/uL 0.30-0.82 H (CELLAVISION)(BEAKER) (test code = 2832) EOSINOPHILS - ABS 0.43 K/uL 0.04-0.54 (CELLAVISION)(BEAKER) (test code = 2834) MYELOCYTES-ABS 0.14 K/uL 0.00-0.00 H (CELLAVISION)(BEAKER) (test code = 2837) BANDS - ABS (CELLAVISION)(BEAKER) 0.29 K/uL 0.00-0.80 (test code = 2840) TOTAL COUNTED (BEAKER) (test code 100 = 1351) WBC MORPHOLOGY (BEAKER) (test code Normal = 487) GIANT PLATELETS (BEAKER) (test Present code = 313) POLYCHROMATOPHILLIC RBCS(BEAKER) 1+ few (test code = 478) ANISOCYTOSIS (BEAKER) (test code = 1+ few 961) ARTIFACT (CELLAVISION)(BEAKER) Present (test code = 3432) PLATELET CONCENTRATION Adequate (CELLAVISION)(BEAKER) (test code = 3438) Received comment: User comments: Slide comments:[id number] 06:44:00 Test Item Value Reference Range Interpretation Comments MAGNESIUM (BEAKER) 2.1 mg/dL 1.6-2.6 Specimen slightly (test code = 627) hemolyzed [id number] 06:44:00 Test Item Value Reference Range Interpretation Comments PHOSPHORUS (BEAKER) 5.0 mg/dL 2.3-4.7 H Specimen slightly (test code = 604) hemolyzed BASIC METABOLIC [id number] 06:44:00 Test Item Value Reference Range Interpretation Comments SODIUM (BEAKER) 138 meq/L 136-145 (test code = 381) POTASSIUM (BEAKER) 4.6 meq/L 3.5-5.1 Specimen slightly (test code = 379) hemolyzed CHLORIDE (BEAKER) 99 meq/L 98-107 (test code = 382) CO2 (BEAKER) (test 30 meq/L 22-29 H code = 355) BLOOD UREA NITROGEN 10 mg/dL 7-21 (BEAKER) (test code = 354) CREATININE (BEAKER) 0.67 mg/dL 0.57-1.25 Specimen slightly (test code = 358) hemolyzed GLUCOSE RANDOM 87 mg/dL 70-105 (BEAKER) (test code = 652) CALCIUM (BEAKER) 8.7 mg/dL 8.4-10.2 (test code = 697) EGFR (BEAKER) (test 127 mL/min/1.73 ESTIM ATED GFR IS code = 1092) sq m NOT ACCURATE CREATININE CLEARANCE IN PREDICTING GLOMERULAR FILTRATION RATE . ESTIMATED GFR I S NOT APPLICABLE FOR DIALYSIS PATIEN TS. [id number] 06:06:00 Test Item Value Reference Range Interpretation Comments PROTIME (BEAKER) (test code = 15.6 seconds 11.7-14.7 H 759) INR (BEAKER) (test code = 370) 1.2 <=5.9 PARTIAL THROMBOPLASTIN TIME 46.0 seconds 22.5-36.0 H (BEAKER) (test code = 760) RECOMMENDED COUMADIN/WARFARIN INR THERAPY RANGESSTANDARD DOSE: 2.0 - 3.0 Includes: PROPHYLAXIS forvenous thrombosis, systemic embolization; TREATMENT for venous thrombosis and/or pulmonary embolus.HIGH RISK: Target INR is 2.5-3.5 for patients with mechanical heart valves.SPUTUM CULTURE + GRAM [id number] 14:44:00 Test Item Value Reference Range Interpretation Comments CULTURE (BEAKER) Oropharyngeal (test code = 1095) contamination, specimen rejected. Recollect requested. GRAM STAIN RESULT <1+ WBCs (BEAKER) (test code = 1123) GRAM STAIN RESULT >25 epithelial cells (BEAKER) (test code = 67219) GRAM STAIN RESULT <1+ gram positive rods (BEAKER) (test code = 99047) RAD, CHEST, 1 VIEW, NON [id number] 13:59:00Reason for exam:->leukocytosis in setting of recent laryngectomyShould [facility]?->YesFINAL REPORT INDICATION: leukocytosis in setting of recent laryngectomy COMPARISON:July 17 TECHNIQUE: Chest radiograph, single view, portable technique. FINDINGS / IMPRESSION: No pneumonia is demonstrated. Right base linear opacities represent subsegmental atelectasis. Tracheostomy tube and left low neck dissection noted. No pneumomediastinum or pneumothorax demonstrated. Cardiac and mediastinal contours unremarkable. Signed: Saray Man MDReport Verified Date/Time: 07/19/2018 13:59:21 Reading Location: [facility] [id number] Consult Reading Room URINALYSIS W/ REFLEX URINE [id number] 11:14:00 Test Item Value Reference Range Interpretation Comments COLOR (BEAKER) (test code = 470) Light Yellow CLARITY (BEAKER) (test code = Clear 469) SPECIFIC GRAVITY UA (BEAKER) 1.013 1.001-1.035 (test code = 468) PH UA (BEAKER) (test code = 467) 6.0 5.0-8.0 PROTEIN UA (BEAKER) (test code = Negative Negative 464) GLUCOSE UA (BEAKER) (test code = Negative Negative 365) KETONES UA (BEAKER) (test code = Negative Negative 371) BILIRUBIN UA (BEAKER) (test code Negative Negative = 462) BLOOD UA (BEAKER) (test code = Trace Negative A 461) NITRITE UA (BEAKER) (test code = Negative Negative 465) LEUKOCYTE ESTERASE UA (BEAKER) Small Negative A (test code = 466) UROBILINOGEN UA (BEAKER) (test 0.2 mg/dL 0.2-1.0 code = 463) RBC UA (BEAKER) (test code = 2 /HPF 519) WBC UA (BEAKER) (test code = 15 /HPF 520) MUCUS (BEAKER) (test code = Occasional 1574) HYALINE CASTS (BEAKER) (test 2 /LPF code = 514) SOURCE(BEAKER) (test code = 2795) POCT-GLUCOSE [id number] 06:46:00 Test Item Value Reference Range Interpretation Comments POC-GLUCOSE METER 102 mg/dL 70-110 TESTED AT [facility] 6720 (BEAKER) (test code = ALI[place] 1538) [id number] 04:52:00 Test Item Value Reference Range Interpretation Comments PHOSPHORUS (BEAKER) (test code = 4.1 mg/dL 2.3-4.7 604) [id number] 04:52:00 Test Item Value Reference Range Interpretation Comments MAGNESIUM (BEAKER) (test code = 1.8 mg/dL 1.6-2.6 627) BASIC METABOLIC [id number] 04:52:00 Test Item Value Reference Range Interpretation Comments SODIUM (BEAKER) 138 meq/L 136-145 (test code = 381) POTASSIUM (BEAKER) 3.7 meq/L 3.5-5.1 (test code = 379) CHLORIDE (BEAKER) 101 meq/L 98-107 (test code = 382) CO2 (BEAKER) (test 26 meq/L 22-29 code = 355) BLOOD UREA NITROGEN 10 mg/dL 7-21 (BEAKER) (test code = 354) CREATININE (BEAKER) 0.67 mg/dL 0.57-1.25 (test code = 358) GLUCOSE RANDOM 111 mg/dL 70-105 H (BEAKER) (test code = 652) CALCIUM (BEAKER) 8.5 mg/dL 8.4-10.2 (test code = 697) EGFR (BEAKER) (test 127 mL/min/1.73 ESTIM ATED GFR IS code = 1092) sq m NOT ACCURATE CREATININE CLEARANCE IN PREDICTING GLOMERULAR FILTRATION RATE . ESTIMATED GFR I S NOT APPLICABLE FOR DIALYSIS PATIEN TS. CBC W/PLT COUNT & AUTO [id number] 04:25:00 Test Item Value Reference Range Interpretation Comments WHITE BLOOD CELL COUNT (BEAKER) 13.6 K/ L 3.5-10.5 H (test code = 775) RED BLOOD CELL COUNT (BEAKER) 3.58 M/ L 4.63-6.08 L (test code = 761) HEMOGLOBIN (BEAKER) (test code = 10.8 GM/DL 13.7-17.5 L 410) HEMATOCRIT (BEAKER) (test code = 34.8 % 40.1-51.0 L 411) MEAN CORPUSCULAR VOLUME (BEAKER) 97.2 fL 79.0-92.2 H (test code = 753) MEAN CORPUSCULAR HEMOGLOBIN 30.2 pg 25.7-32.2 (BEAKER) (test code = 751) MEAN CORPUSCULAR HEMOGLOBIN CONC 31.0 GM/DL 32.3-36.5 L (BEAKER) (test code = 752) RED CELL DISTRIBUTION WIDTH 15.1 % 11.6-14.4 H (BEAKER) (test code = 412) PLATELET COUNT (BEAKER) (test 392 K/CU MM 150-450 code = 756) MEAN PLATELET VOLUME (BEAKER) 10.0 fL 9.4-12.4 (test code = 754) NUCLEATED RED BLOOD CELLS 0 /100 WBC 0-0 (BEAKER) (test code = 413) NEUTROPHILS RELATIVE PERCENT 78 % (BEAKER) (test code = 429) LYMPHOCYTES RELATIVE PERCENT 5 % (BEAKER) (test code = 430) MONOCYTES RELATIVE PERCENT 10 % (BEAKER) (test code = 431) EOSINOPHILS RELATIVE PERCENT 2 % (BEAKER) (test code = 432) BASOPHILS RELATIVE PERCENT 1 % (BEAKER) (test code = 437) NEUTROPHILS ABSOLUTE COUNT 10.68 K/ L 1.78-5.38 H (BEAKER) (test code = 670) LYMPHOCYTES ABSOLUTE COUNT 0.68 K/ L 1.32-3.57 L (BEAKER) (test code = 414) MONOCYTES ABSOLUTE COUNT (BEAKER) 1.40 K/ L 0.30-0.82 H (test code = 415) EOSINOPHILS ABSOLUTE COUNT 0.31 K/ L 0.04-0.54 (BEAKER) (test code = 416) BASOPHILS ABSOLUTE COUNT (BEAKER) 0.08 K/ L 0.01-0.08 (test code = 417) IMMATURE GRANULOCYTES-RELATIVE 3 % 0-1 H PERCENT (BEAKER) (test code = 2801) [id number] 04:11:00 Test Item Value Reference Range Interpretation Comments PROTIME (BEAKER) (test code = 15.8 seconds 11.7-14.7 H 759) INR (BEAKER) (test code = 370) 1.2 <=5.9 PARTIAL THROMBOPLASTIN TIME 48.2 seconds 22.5-36.0 H (BEAKER) (test code = 760) RECOMMENDED COUMADIN/WARFARIN INR THERAPY RANGESSTANDARD DOSE: 2.0 - 3.0 Includes: PROPHYLAXIS forvenous thrombosis, systemic embolization; TREATMENT for venous thrombosis and/or pulmonary embolus.HIGH RISK: Target INR is 2.5-3.5 for patients with mechanical heart valves.POCT-GLUCOSE [id number] 00:11:00 Test Item Value Reference Range Interpretation Comments POC-GLUCOSE METER 76 mg/dL 70-110 TESTED AT [place] [address] ([facility]) [facility] [id number] 1538) POCT-GLUCOSE [id number] 17:53:00 Test Item Value Reference Range Interpretation Comments POC-GLUCOSE METER 94 mg/dL 70-110 TESTED AT [place] [address] ([facility]) (test code = [facility] [address] 1538) T4, [id number] 11:41:00 Test Item Value Reference Range Interpretation Comments FREE T4 ([facility]) (test code = 655) 0.90 ng/dL 0.70-1.48 POCT-GLUCOSE [id number] 11:35:00 Test Item Value Reference Range Interpretation Comments POC-GLUCOSE METER 103 mg/dL 70-110 TESTED AT [place] [address] ([facility]) (test code = [facility] 1538) [address] TSH/FREE T4 IF [id number] 10:50:00 Test Item Value Reference Range Interpretation Comments THYROID STIMULATING HORMONE 14.67 uIU/mL 0.35-4.94 H ([facility]) (test code = 772) POCT-GLUCOSE [id number] 06:42:00 Test Item Value Reference Range Interpretation Comments POC-GLUCOSE METER 111 mg/dL 70-110 H TESTED AT [place] [address] ([facility]) (test code = [facility] 1538) [address] CBC W/PLT COUNT & AUTO [id number] 05:20:00 Test Item Value Reference Range Interpretation Comments WHITE BLOOD CELL COUNT ([facility]) 11.4 K/ L 3.5-10.5 H (test code = 775) RED BLOOD CELL COUNT ([facility]) 3.40 M/ L 4.63-6.08 L (test code = 761) HEMOGLOBIN ([facility]) (test code = 10.3 GM/DL 13.7-17.5 L 410) HEMATOCRIT ([facility]) (test code = 33.6 % 40.1-51.0 L 411) MEAN CORPUSCULAR VOLUME ([facility]) 98.8 fL 79.0-92.2 H (test code = 753) MEAN CORPUSCULAR HEMOGLOBIN 30.3 pg 25.7-32.2 ([facility]) (test code = 751) MEAN CORPUSCULAR HEMOGLOBIN CONC 30.7 GM/DL 32.3-36.5 L (BEAKER) (test code = 752) RED CELL DISTRIBUTION WIDTH 15.3 % 11.6-14.4 H (BEAKER) (test code = 412) PLATELET COUNT (BEAKER) (test 365 K/CU MM 150-450 code = 756) MEAN PLATELET VOLUME (BEAKER) 10.2 fL 9.4-12.4 (test code = 754) NUCLEATED RED BLOOD CELLS 0 /100 WBC 0-0 (BEAKER) (test code = 413) NEUTROPHILS RELATIVE PERCENT 80 % (BEAKER) (test code = 429) LYMPHOCYTES RELATIVE PERCENT 6 % (BEAKER) (test code = 430) MONOCYTES RELATIVE PERCENT 9 % (BEAKER) (test code = 431) EOSINOPHILS RELATIVE PERCENT 3 % (BEAKER) (test code = 432) BASOPHILS RELATIVE PERCENT 0 % (BEAKER) (test code = 437) NEUTROPHILS ABSOLUTE COUNT 9.06 K/ L 1.78-5.38 H (BEAKER) (test code = 670) LYMPHOCYTES ABSOLUTE COUNT 0.72 K/ L 1.32-3.57 L (BEAKER) (test code = 414) MONOCYTES ABSOLUTE COUNT (BEAKER) 1.06 K/ L 0.30-0.82 H (test code = 415) EOSINOPHILS ABSOLUTE COUNT 0.28 K/ L 0.04-0.54 (BEAKER) (test code = 416) BASOPHILS ABSOLUTE COUNT (BEAKER) 0.05 K/ L 0.01-0.08 (test code = 417) IMMATURE GRANULOCYTES-RELATIVE 2 % 0-1 H PERCENT (BEAKER) (test code = 2805) [id number] 05:00:00 Test Item Value Reference Range Interpretation Comments PHOSPHORUS (BEAKER) (test code = 5.2 mg/dL 2.3-4.7 H 604) [id number] 05:00:00 Test Item Value Reference Range Interpretation Comments MAGNESIUM (BEAKER) (test code = 2.0 mg/dL 1.6-2.6 627) BASIC METABOLIC [id number] 05:00:00 Test Item Value Reference Range Interpretation Comments SODIUM (BEAKER) 141 meq/L 136-145 (test code = 381) POTASSIUM (BEAKER) 3.7 meq/L 3.5-5.1 (test code = 379) CHLORIDE (BEAKER) 102 meq/L 98-107 (test code = 382) CO2 (BEAKER) (test 29 meq/L 22-29 code = 355) BLOOD UREA NITROGEN 7 mg/dL 7-21 (BEAKER) (test code = 354) CREATININE (BEAKER) 0.68 mg/dL 0.57-1.25 (test code = 358) GLUCOSE RANDOM 114 mg/dL 70-105 H (BEAKER) (test code = 652) CALCIUM (BEAKER) 8.2 mg/dL 8.4-10.2 L (test code = 697) EGFR (BEAKER) (test 124 mL/min/1.73 ESTIM ATED GFR IS code = 1092) sq m NOT ACCURATE CREATININE CLEARANCE IN PREDICTING GLOMERULAR FILTRATION RATE . ESTIMATED GFR I S NOT APPLICABLE FOR DIALYSIS PATIEN TS. [id number] 04:55:00 Test Item Value Reference Range Interpretation Comments PROTIME (BEAKER) (test code = 15.2 seconds 11.7-14.7 H 759) INR (BEAKER) (test code = 370) 1.2 <=5.9 PARTIAL THROMBOPLASTIN TIME 38.9 seconds 22.5-36.0 H (BEAKER) (test code = 760) RECOMMENDED COUMADIN/WARFARIN INR THERAPY RANGESSTANDARD DOSE: 2.0 - 3.0 Includes: PROPHYLAXIS forvenous thrombosis, systemic embolization; TREATMENT for venous thrombosis and/or pulmonary embolus.HIGH RISK: Target INR is 2.5-3.5 for patients with mechanical heart valves.CBC W/PLT COUNT & AUTO DIFFERENTIAL 2018-07-17 08:47:00 Test Item Value Reference Range Interpretation Comments WHITE BLOOD CELL COUNT (BEAKER) 13.2 K/ L 3.5-10.5 H (test code = 775) RED BLOOD CELL COUNT (BEAKER) 3.21 M/ L 4.63-6.08 L (test code = 761) HEMOGLOBIN (BEAKER) (test code = 9.8 GM/DL 13.7-17.5 L 410) HEMATOCRIT (BEAKER) (test code = 30.9 % 40.1-51.0 L 411) MEAN CORPUSCULAR VOLUME (BEAKER) 96.3 fL 79.0-92.2 H (test code = 753) MEAN CORPUSCULAR HEMOGLOBIN 30.5 pg 25.7-32.2 (BEAKER) (test code = 751) MEAN CORPUSCULAR HEMOGLOBIN CONC 31.7 GM/DL 32.3-36.5 L (BEAKER) (test code = 752) RED CELL DISTRIBUTION WIDTH 15.2 % 11.6-14.4 H (BEAKER) (test code = 412) PLATELET COUNT (BEAKER) (test 310 K/CU MM 150-450 code = 756) MEAN PLATELET VOLUME (BEAKER) 10.1 fL 9.4-12.4 (test code = 754) NUCLEATED RED BLOOD CELLS 0 /100 WBC 0-0 (BEAKER) (test code = 413) (CELLAVISION MANUAL DIFF)2018-07-17 08:47:00 Test Item Value Reference Range Interpretation Comments NEUTROPHILS - REL 88 % (CELLAVISION)(BEAKER) (test code = 2816) LYMPHOCYTES - REL 2 % (CELLAVISION)(BEAKER) (test code = 2817) MONOCYTES - REL 5 % (CELLAVISION)(BEAKER) (test code = 2818) EOSINOPHILS - REL 3 % (CELLAVISION)(BEAKER) (test code = 2819) MYELOCYTES - REL 1 % 0-0 H (CELLAVISION)(BEAKER) (test code = 2822) ATYPICAL LYMPHOCYTES - REL 1 % 0-0 H (CELLAVISION)(BEAKER) (test code = 2829) NEUTROPHILS - ABS 11.62 K/ul 1.78-5.38 H (CELLAVISION)(BEAKER) (test code = 2830) LYMPHOCYTES - ABS 0.26 K/ul 1.32-3.57 L (CELLAVISION)(BEAKER) (test code = 2831) MONOCYTES - ABS 0.66 K/uL 0.30-0.82 (CELLAVISION)(BEAKER) (test code = 2832) EOSINOPHILS - ABS 0.40 K/uL 0.04-0.54 (CELLAVISION)(BEAKER) (test code = 2834) MYELOCYTES-ABS 0.13 K/uL 0.00-0.00 H (CELLAVISION)(BEAKER) (test code = 2837) ATYPICAL LYMPHOCYTES - ABS 0.13 K/uL 0.00-0.00 H (CELLAVISION)(BEAKER) (test code = 2858) TOTAL COUNTED (BEAKER) (test code 100 = 1351) WBC MORPHOLOGY (BEAKER) (test Normal code = 487) PLT MORPHOLOGY (BEAKER) (test Normal code = 486) ANISOCYTOSIS (BEAKER) (test code 2+ moderate = 961) MICROCYTES (BEAKER) (test code = 2+ moderate 965) ARTIFACT (CELLAVISION)(BEAKER) Present (test code = 3432) PLATELET CONCENTRATION Adequate (CELLAVISION)(BEAKER) (test code = 3438) Received comment: User comments: Slide comments:POCT-GLUCOSE [id number] 06:41:00 Test Item Value Reference Range Interpretation Comments POC-GLUCOSE METER 115 mg/dL 70-110 H TESTED AT [facility] 6720 (BEAKER) (test code = [place] 1538) [id number] BASIC METABOLIC [id number] 04:53:00 Test Item Value Reference Range Interpretation Comments SODIUM (BEAKER) 138 meq/L 136-145 (test code = 381) POTASSIUM (BEAKER) 3.4 meq/L 3.5-5.1 L (test code = 379) CHLORIDE (BEAKER) 104 meq/L 98-107 (test code = 382) CO2 (BEAKER) (test 25 meq/L 22-29 code = 355) BLOOD UREA NITROGEN 7 mg/dL 7-21 (BEAKER) (test code = 354) CREATININE (BEAKER) 0.68 mg/dL 0.57-1.25 (test code = 358) GLUCOSE RANDOM 173 mg/dL 70-105 H (BEAKER) (test code = 652) CALCIUM (BEAKER) 7.6 mg/dL 8.4-10.2 L (test code = 697) EGFR (BEAKER) (test 124 mL/min/1.73 ESTIM ATED GFR IS code = 1092) sq m NOT ACCURATE CREATININE CLEARANCE IN PREDICTING GLOMERULAR FILTRATION RATE . ESTIMATED GFR I S NOT APPLICABLE FOR DIALYSIS PATIEN TS. [id number] 04:37:00 Test Item Value Reference Range Interpretation Comments PHOSPHORUS (BEAKER) (test code = 3.9 mg/dL 2.3-4.7 604) [id number] 04:37:00 Test Item Value Reference Range Interpretation Comments MAGNESIUM (BEAKER) (test code = 1.6 mg/dL 1.6-2.6 627) [id number] 04:37:00 Test Item Value Reference Range Interpretation Comments ALBUMIN (BEAKER) (test code = 1145) 3.2 g/dL 3.5-5.0 L [id number] 04:24:00 Test Item Value Reference Range Interpretation Comments PROTIME (BEAKER) (test code = 15.9 seconds 11.7-14.7 H 759) INR (BEAKER) (test code = 370) 1.2 <=5.9 PARTIAL THROMBOPLASTIN TIME 51.7 seconds 22.5-36.0 H (BEAKER) (test code = 760) RECOMMENDED COUMADIN/WARFARIN INR THERAPY RANGESSTANDARD DOSE: 2.0 - 3.0 Includes: PROPHYLAXIS forvenous thrombosis, systemic embolization; TREATMENT for venous thrombosis and/or pulmonary embolus.HIGH RISK: Target INR is 2.5-3.5 for patients with mechanical heart valves.RAD, CHEST, 1 VIEW, NON [id number] 03:56:00Reason for exam:->atelectasisShould this be performed at the bedside?->YesFINAL REPORT CLINICAL INDICATION: Support lines. Comparison: 07/16/2018 The cardiomediastinal contours are stable. The lung volumes remain low. Bibasilar parenchymal and pleural opacities are similar to previous. There is no pneumothorax. A tracheostomy tube is stable in position. A pigtail catheter overlies the left upper quadrant, probably a G- tube. Signed: Mayra Garcia MDReport Verified Date/Time: 07/17/2018 03:56:49 Reading Location: [address] Reading Room POCT-GLUCOSE [id number] 00:56:00 Test Item Value Reference Range Interpretation Comments POC-GLUCOSE METER 115 mg/dL 70-110 H TESTED AT [facility] 6720 (ARCHIE) (test code = ALIYA [place] 1538) [address] POCT-GLUCOSE [id number] 18:10:00 Test Item Value Reference Range Interpretation Comments POC-GLUCOSE METER 116 mg/dL 70-110 H TESTED AT [facility] 67[address] ([facility]) (test code = ALIYA Ruiz [place] 1538) [id number] POCT-GLUCOSE [id number] 13:10:00 Test Item Value Reference Range Interpretation Comments POC-GLUCOSE METER 115 mg/dL 70-110 H TESTED AT [facility] 67[address] ([facility]) (test code = ALIYA Ruiz [place] 1538) [address] RAD, CHEST, 1 VIEW, NON [id number] 08:20:00Reason for exam:- >atelectasisShould this be performed at the bedside?->YesFINAL REPORT Portable chest. CLINICAL HISTORY: atelectasis. COMPARISON STUDY:Chest x-ray from yesterday. FINDINGS: The cardiac silhouette is enlarged. The pulmonary parenchyma demonstrates atelectasis or consolidation in the right lung base, stable from previous. The support lines and tubes are unchanged. No pneumothorax is seen. Degenerative changes are noted. IMPRESSION: No significant change. Signed: Josias Barrettepfarzaneh Verified Date/Time: 07/16/2018 08:20:57 ReadingLocation: [facility] B1 [id number] Ortho Consult Reading Room TROPONIN I 2018-07-16 08:03:00 Test Item Value Reference Range Interpretation Comments TROPONIN I (BEAKER) (test code = 0.01 ng/mL 0.00-0.03 397) Troponin I (TnI) levels must be interpreted [...] acute neurological disease, and persistent tachyarrhythmia.BLOOD GAS, [id number] 07:42:00 Test Item Value Reference Range Interpretation Comments PH ARTERIAL (BEAKER) (test code = 7.42 7.35-7.45 383) PCO2 ARTERIAL (BEAKER) (test code 40 mmHg 35-45 = 384) PO2 ARTERIAL (BEAKER) (test code = 77 mmHg 80-90 L 385) O2 SATURATION ARTERIAL (BEAKER) 95.8 % 96.0-97.0 L (test code = 386) HCO3 ARTERIAL (BEAKER) (test code 25 mmol/L 21-29 = 388) BASE EXCESS ARTERIAL (BEAKER) 0.9 mmol/L -2.0-3.0 (test code = 387) PATIENT TEMPERATURE (BEAKER) (test 36.8 C code = 1818) FIO2 (BEAKER) (test code = 1819) 44.0 % POCT-GLUCOSE [id number] 06:03:00 Test Item Value Reference Range Interpretation Comments POC-GLUCOSE METER 120 mg/dL 70-110 H TESTED AT [facility] 6720 (BEAKER) (test code = ALI[place]QUE[place] 1538) [address] CBC W/PLT COUNT & AUTO [id number] 04:00:00 Test Item Value Reference Range Interpretation Comments WHITE BLOOD CELL COUNT (BEAKER) 20.3 K/ L 3.5-10.5 H (test code = 775) RED BLOOD CELL COUNT (BEAKER) 3.66 M/ L 4.63-6.08 L (test code = 761) HEMOGLOBIN (BEAKER) (test code = 11.3 GM/DL 13.7-17.5 L 410) HEMATOCRIT (BEAKER) (test code = 36.0 % 40.1-51.0 L 411) MEAN CORPUSCULAR VOLUME (BEAKER) 98.4 fL 79.0-92.2 H (test code = 753) MEAN CORPUSCULAR HEMOGLOBIN 30.9 pg 25.7-32.2 (BEAKER) (test code = 751) MEAN CORPUSCULAR HEMOGLOBIN CONC 31.4 GM/DL 32.3-36.5 L (BEAKER) (test code = 752) RED CELL DISTRIBUTION WIDTH 15.0 % 11.6-14.4 H (BEAKER) (test code = 412) PLATELET COUNT (BEAKER) (test 319 K/CU MM 150-450 code = 756) MEAN PLATELET VOLUME (BEAKER) 10.5 fL 9.4-12.4 (test code = 754) NUCLEATED RED BLOOD CELLS 0 /100 WBC 0-0 (BEAKER) (test code = 413) NEUTROPHILS RELATIVE PERCENT 86 % (BEAKER) (test code = 429) LYMPHOCYTES RELATIVE PERCENT 4 % (BEAKER) (test code = 430) MONOCYTES RELATIVE PERCENT 9 % (BEAKER) (test code = 431) EOSINOPHILS RELATIVE PERCENT 0 % (BEAKER) (test code = 432) BASOPHILS RELATIVE PERCENT 0 % (BEAKER) (test code = 437) NEUTROPHILS ABSOLUTE COUNT 17.32 K/ L 1.78-5.38 H (BEAKER) (test code = 670) LYMPHOCYTES ABSOLUTE COUNT 0.72 K/ L 1.32-3.57 L (BEAKER) (test code = 414) MONOCYTES ABSOLUTE COUNT (BEAKER) 1.82 K/ L 0.30-0.82 H (test code = 415) EOSINOPHILS ABSOLUTE COUNT 0.07 K/ L 0.04-0.54 (BEAKER) (test code = 416) BASOPHILS ABSOLUTE COUNT (BEAKER) 0.07 K/ L 0.01-0.08 (test code = 417) IMMATURE GRANULOCYTES-RELATIVE 1 % 0-1 PERCENT (BEAKER) (test code = 2801) [id number] 03:38:00 Test Item Value Reference Range Interpretation Comments MAGNESIUM (BEAKER) 2.0 mg/dL 1.6-2.6 Specimen slightly (test code = 627) hemolyzed [id number] 03:38:00 Test Item Value Reference Range Interpretation Comments PHOSPHORUS (BEAKER) 3.6 mg/dL 2.3-4.7 Specimen slightly (test code = 604) hemolyzed BASIC METABOLIC [id number] 03:38:00 Test Item Value Reference Range Interpretation Comments SODIUM (BEAKER) 140 meq/L 136-145 (test code = 381) POTASSIUM (BEAKER) 4.0 meq/L 3.5-5.1 Specimen slightly (test code = 379) hemolyzed CHLORIDE (BEAKER) 105 meq/L 98-107 (test code = 382) CO2 (BEAKER) (test 25 meq/L 22-29 code = 355) BLOOD UREA NITROGEN 5 mg/dL 7-21 L (BEAKER) (test code = 354) CREATININE (BEAKER) 0.73 mg/dL 0.57-1.25 Specimen slightly (test code = 358) hemolyzed GLUCOSE RANDOM 129 mg/dL 70-105 H (BEAKER) (test code = 652) CALCIUM (BEAKER) 8.5 mg/dL 8.4-10.2 (test code = 697) EGFR (BEAKER) (test 115 mL/min/1.73 ESTIM ATED GFR IS code = 1092) sq m NOT ACCURATE CREATININE CLEARANCE IN PREDICTING GLOMERULAR FILTRATION RATE . ESTIMATED GFR I S NOT APPLICABLE FOR DIALYSIS PATIEN TS. [id number] 03:38:00 Test Item Value Reference Range Interpretation Comments ALBUMIN (BEELMO) (test 3.9 g/dL 3.5-5.0 Speci men slightly code = 1145) hemolyzed [id number] 03:31:00 Test Item Value Reference Range Interpretation Comments PROTIME (BEWebmedx) (test code = 15.5 seconds 11.7-14.7 H 759) INR (BEWebmedx) (test code = 370) 1.2 <=5.9 PARTIAL THROMBOPLASTIN TIME 34.5 seconds 22.5-36.0 (XRONet) (test code = 760) RECOMMENDED COUMADIN/WARFARIN INR THERAPY RANGESSTANDARD DOSE: 2.0 - 3.0 Includes: PROPHYLAXIS forvenous thrombosis, systemic embolization; TREATMENT for venous thrombosis and/or pulmonary embolus.HIGH RISK: Target INR is 2.5-3.5 for patients with mechanical heart valves.POCT-GLUCOSE [id number] 23:39:00 Test Item Value Reference Range Interpretation Comments POC-GLUCOSE METER 121 mg/dL 70-110 H TESTED AT [place] [address] ([facility]) (test code = ALIYA [place]QUE[place] 1538) [address] POCT-GLUCOSE [id number] 18:25:00 Test Item Value Reference Range Interpretation Comments POC-GLUCOSE METER 112 mg/dL 70-110 H TESTED AT [place] [address] ([facility]) (test code = ALIYA Ruiz [facility] 1538) [address] T4, [id number] 12:56:00 Test Item Value Reference Range Interpretation Comments FREE T4 (XRONet) (test code = 655) 1.17 ng/dL 0.70-1.48 POCT-GLUCOSE [id number] 11:35:00 Test Item Value Reference Range Interpretation Comments POC-GLUCOSE METER 143 mg/dL 70-110 H TESTED AT [facility] 6720 (BEAKER) (test code = ALI[place] 1538) [address] CBC W/PLT COUNT & AUTO [id number] 07:50:00 Test Item Value Reference Range Interpretation Comments WHITE BLOOD CELL COUNT (BEAKER) 24.1 K/ L 3.5-10.5 H (test code = 775) RED BLOOD CELL COUNT (BEAKER) 3.75 M/ L 4.63-6.08 L (test code = 761) HEMOGLOBIN (BEAKER) (test code = 11.7 GM/DL 13.7-17.5 L 410) HEMATOCRIT (BEAKER) (test code = 35.7 % 40.1-51.0 L 411) MEAN CORPUSCULAR VOLUME (BEAKER) 95.2 fL 79.0-92.2 H (test code = 753) MEAN CORPUSCULAR HEMOGLOBIN 31.2 pg 25.7-32.2 (BEAKER) (test code = 751) MEAN CORPUSCULAR HEMOGLOBIN CONC 32.8 GM/DL 32.3-36.5 (BEAKER) (test code = 752) RED CELL DISTRIBUTION WIDTH 14.8 % 11.6-14.4 H (BEAKER) (test code = 412) PLATELET COUNT (BEAKER) (test 334 K/CU MM 150-450 code = 756) MEAN PLATELET VOLUME (BEAKER) 10.3 fL 9.4-12.4 (test code = 754) NUCLEATED RED BLOOD CELLS 0 /100 WBC 0-0 (BEAKER) (test code = 413) (CELLAVISION MANUAL DIFF)2018-07-15 07:50:00 Test Item Value Reference Range Interpretation Comments NEUTROPHILS - REL 87 % (CELLAVISION)(BEAKER) (test code = 2816) LYMPHOCYTES - REL 3 % (CELLAVISION)(BEAKER) (test code = 2817) MONOCYTES - REL 5 % (CELLAVISION)(BEAKER) (test code = 2818) METAMYELOCYTES - REL 1 % 0-0 H (CELLAVISION)(BEAKER) (test code = 2821) MYELOCYTES - REL 1 % 0-0 H (CELLAVISION)(BEAKER) (test code = 2822) BANDS - REL (CELLAVISION)(BEAKER) 2 % 0-10 (test code = 2826) ATYPICAL LYMPHOCYTES - REL 1 % 0-0 H (CELLAVISION)(BEAKER) (test code = 2829) NEUTROPHILS - ABS 20.97 K/ul 1.78-5.38 H (CELLAVISION)(BEAKER) (test code = 2830) LYMPHOCYTES - ABS 0.72 K/ul 1.32-3.57 L (CELLAVISION)(BEAKER) (test code = 2831) MONOCYTES - ABS 1.21 K/uL 0.30-0.82 H (CELLAVISION)(BEAKER) (test code = 2832) METAMYELOCYTES - ABS 0.24 K/uL 0.00-0.00 H (CELLAVISION)(BEAKER) (test code = 2836) MYELOCYTES-ABS 0.24 K/uL 0.00-0.00 H (CELLAVISION)(BEAKER) (test code = 2837) BANDS - ABS (CELLAVISION)(BEAKER) 0.48 K/uL 0.00-0.80 (test code = 2840) ATYPICAL LYMPHOCYTES - ABS 0.24 K/uL 0.00-0.00 H (CELLAVISION)(BEAKER) (test code = 2858) TOTAL COUNTED (BEAKER) (test code 100 = 1351) WBC MORPHOLOGY (BEAKER) (test Normal code = 487) PLT MORPHOLOGY (BEAKER) (test Normal code = 486) ANISOCYTOSIS (BEAKER) (test code 2+ moderate = 961) MICROCYTES (BEAKER) (test code = 2+ moderate 965) ARTIFACT (CELLAVISION)(BEAKER) Present (test code = 3432) PLATELET CONCENTRATION Adequate (CELLAVISION)(BEAKER) (test code = 3438) Received comment: User comments: Slide comments:RAD, CHEST, 1 VIEW, NON DEPT 2018-07-15 05:48:00Reason for exam:->postop laryngectomy with trachShould this [...] mediastinum: Stable contours. Additional findings: None. Signed: Maylin Thompson MDReport Verified Date/Time: 07/15/2018 05:48:22 Reading Location: [address] Neuro Reading Room POCT-GLUCOSE [id number] 05:47:00 Test Item Value Reference Range Interpretation Comments POC-GLUCOSE METER 177 mg/dL 70-110 H TESTED AT [facility] 6720 (BEAKER) (test code = AL[place] 1538) [address] [id number] 04:29:00 Test Item Value Reference Range Interpretation Comments PHOSPHORUS (BEAKER) (test code = 2.3 mg/dL 2.3-4.7 604) [id number] 04:29:00 Test Item Value Reference Range Interpretation Comments MAGNESIUM (BEAKER) (test code = 1.7 mg/dL 1.6-2.6 627) BASIC METABOLIC [id number] 04:29:00 Test Item Value Reference Range Interpretation Comments SODIUM (BEAKER) 136 meq/L 136-145 (test code = 381) POTASSIUM (BEAKER) 3.7 meq/L 3.5-5.1 (test code = 379) CHLORIDE (BEAKER) 103 meq/L 98-107 (test code = 382) CO2 (BEAKER) (test 24 meq/L 22-29 code = 355) BLOOD UREA NITROGEN 7 mg/dL 7-21 (BEAKER) (test code = 354) CREATININE (BEAKER) 0.73 mg/dL 0.57-1.25 (test code = 358) GLUCOSE RANDOM 179 mg/dL 70-105 H (BEAKER) (test code = 652) CALCIUM (BEAKER) 9.2 mg/dL 8.4-10.2 (test code = 697) EGFR (BEAKER) (test 115 mL/min/1.73 ESTIM ATED GFR IS code = 1092) sq m NOT ACCURATE CREATININE CLEARANCE IN PREDICTING GLOMERULAR FILTRATION RATE . ESTIMATED GFR I S NOT APPLICABLE FOR DIALYSIS PATIEN TS. [id number] 04:29:00 Test Item Value Reference Range Interpretation Comments ALBUMIN (BEAKER) (test code = 1145) 3.8 g/dL 3.5-5.0 [id number] 04:22:00 Test Item Value Reference Range Interpretation Comments PROTIME (BEAKER) (test code = 14.5 seconds 11.7-14.7 759) INR (BEAKER) (test code = 370) 1.1 <=5.9 PARTIAL THROMBOPLASTIN TIME 42.0 seconds 22.5-36.0 H (BEAKER) (test code = 760) RECOMMENDED COUMADIN/WARFARIN INR THERAPY RANGESSTANDARD DOSE: 2.0 - 3.0 Includes: PROPHYLAXIS forvenous thrombosis, systemic embolization; TREATMENT for venous thrombosis and/or pulmonary embolus.HIGH RISK: Target INR is 2.5-3.5 for patients with mechanical heart valves.POCT-GLUCOSE [id number] 23:55:00 Test Item Value Reference Range Interpretation Comments POC-GLUCOSE METER 159 mg/dL 70-110 H TESTED AT [facility] 6720 (BEAKER) (test code = ALI[place] 1538) [address] [id number] 19:41:00 Test Item Value Reference Range Interpretation Comments THYROID STIMULATING HORMONE 6.82 uIU/mL 0.35-4.94 H (BEAKER) (test code = 772) [id number] 19:26:00 Test Item Value Reference Range Interpretation Comments PHOSPHORUS (BEAKER) (test code = 4.9 mg/dL 2.3-4.7 H 604) Postop labsPostop labsPostop labsPostop [id number] 19:26:00 Test Item Value Reference Range Interpretation Comments MAGNESIUM (BEAKER) (test code = 1.9 mg/dL 1.6-2.6 627) Postop labsPostop labsPostop labsPostop labsBASIC METABOLIC [id number] 19:26:00 Test Item Value Reference Range Interpretation Comments SODIUM (BEAKER) 140 meq/L 136-145 (test code = 381) POTASSIUM (BEAKER) 4.6 meq/L 3.5-5.1 (test code = 379) CHLORIDE (BEAKER) 107 meq/L 98-107 (test code = 382) CO2 (BEAKER) (test 26 meq/L 22-29 code = 355) BLOOD UREA NITROGEN 8 mg/dL 7-21 (BEAKER) (test code = 354) CREATININE (BEAKER) 0.77 mg/dL 0.57-1.25 (test code = 358) GLUCOSE RANDOM 109 mg/dL 70-105 H (BEAKER) (test code = 652) CALCIUM (BEAKER) 9.4 mg/dL 8.4-10.2 (test code = 697) EGFR (BEAKER) (test 108 mL/min/1.73 ESTIM ATED GFR IS code = 1092) sq m NOT ACCURATE CREATININE CLEARANCE IN PREDICTING GLOMERULAR FILTRATION RATE . ESTIMATED GFR I S NOT APPLICABLE FOR DIALYSIS PATIEN TS. Postop labsPostop labsPostop labsPostop [id number] 19:26:00 Test Item Value Reference Range Interpretation Comments ALBUMIN (BEAKER) (test code = 1145) 3.9 g/dL 3.5-5.0 Postop labsPostop labsPostop labsPostop [id number] 19:24:00 Test Item Value Reference Range Interpretation Comments PREALBUMIN (BEAKER) 17 mg/dL 14-45 Specimen slightly (test code = 586) hemolyzed PTH, [id number] 19:23:00 Test Item Value Reference Range Interpretation Comments PARATHYROID HORMONE INTACT 16.1 pg/mL 8.5-72.5 (BEAKER) (test code = 577) Postop LabsCBC W/PLT COUNT & AUTO [id number] 18:58:00 Test Item Value Reference Range Interpretation Comments WHITE BLOOD CELL COUNT (BEAKER) 13.3 K/ L 3.5-10.5 H (test code = 775) RED BLOOD CELL COUNT (BEAKER) 3.50 M/ L 4.63-6.08 L (test code = 761) HEMOGLOBIN (BEAKER) (test code = 10.8 GM/DL 13.7-17.5 L 410) HEMATOCRIT (BEAKER) (test code = 34.1 % 40.1-51.0 L 411) MEAN CORPUSCULAR VOLUME (BEAKER) 97.4 fL 79.0-92.2 H (test code = 753) MEAN CORPUSCULAR HEMOGLOBIN 30.9 pg 25.7-32.2 (BEAKER) (test code = 751) MEAN CORPUSCULAR HEMOGLOBIN CONC 31.7 GM/DL 32.3-36.5 L (BEAKER) (test code = 752) RED CELL DISTRIBUTION WIDTH 15.1 % 11.6-14.4 H (BEAKER) (test code = 412) PLATELET COUNT (BEAKER) (test 278 K/CU MM 150-450 code = 756) MEAN PLATELET VOLUME (BEAKER) 9.5 fL 9.4-12.4 (test code = 754) NUCLEATED RED BLOOD CELLS 0 /100 WBC 0-0 (BEAKER) (test code = 413) NEUTROPHILS RELATIVE PERCENT 84 % (BEAKER) (test code = 429) LYMPHOCYTES RELATIVE PERCENT 6 % (BEAKER) (test code = 430) MONOCYTES RELATIVE PERCENT 8 % (BEAKER) (test code = 431) EOSINOPHILS RELATIVE PERCENT 1 % (BEAKER) (test code = 432) BASOPHILS RELATIVE PERCENT 0 % (BEAKER) (test code = 437) NEUTROPHILS ABSOLUTE COUNT 11.15 K/ L 1.78-5.38 H (BEAKER) (test code = 670) LYMPHOCYTES ABSOLUTE COUNT 0.73 K/ L 1.32-3.57 L (BEAKER) (test code = 414) MONOCYTES ABSOLUTE COUNT (BEAKER) 1.04 K/ L 0.30-0.82 H (test code = 415) EOSINOPHILS ABSOLUTE COUNT 0.15 K/ L 0.04-0.54 (BEAKER) (test code = 416) BASOPHILS ABSOLUTE COUNT (BEAKER) 0.05 K/ L 0.01-0.08 (test code = 417) IMMATURE GRANULOCYTES-RELATIVE 1 % 0-1 PERCENT (BEAKER) (test code = 2801) BLOOD GAS, [id number] 15:31:00 Test Item Value Reference Range Interpretation Comments PH ARTERIAL (BEAKER) (test code = 7.37 7.35-7.45 383) PCO2 ARTERIAL (BEAKER) (test code 46 mmHg 35-45 H = 384) PO2 ARTERIAL (BEAKER) (test code = 273 mmHg 80-90 H 385) O2 SATURATION ARTERIAL (BEAKER) 99.6 % 96.0-97.0 H (test code = 386) HCO3 ARTERIAL (BEAKER) (test code 26 mmol/L 21-29 = 388) BASE EXCESS ARTERIAL (BEAKER) 0.4 mmol/L -2.0-3.0 (test code = 387) PATIENT TEMPERATURE (BEAKER) (test 37.0 C code = 1818) FIO2 (BEAKER) (test code = 1819) 100.0 % HGB/HCT (H&H) - STAT [id number] 15:31:00 Test Item Value Reference Range Interpretation Comments HEMOGLOBIN (BEAKER) (test code = 11.0 g/dL 13.0-16.8 L 410) HEMATOCRIT (BEAKER) (test code = 32.0 % 40.0-50.0 L 411) GLUCOSE-STAT [id number] 15:30:00 Test Item Value Reference Range Interpretation Comments GLUCOSE RANDOM (BEAKER) (test code = 87 mg/dL 70-110 652) SODIUM NA-STAT [id number] 15:30:00 Test Item Value Reference Range Interpretation Comments SODIUM (BEAKER) (test code = 381) 137 meq/L 135-148 POTASSIUM-STAT [id number] 15:30:00 Test Item Value Reference Range Interpretation Comments POTASSIUM (BEAKER) (test code = 4.0 meq/L 3.6-5.5 379) ANG, INSERTION G TUBE, W/ [id number] 14:18:00Reason for exam:- >Gastrostomy tubeFINAL REPORT Fluoroscopic guided gastrostomy tube placement, 07/11/2018. Clinical History: Laryngeal cancer. Modality: Fluoroscopy. Aircraft Structural Repair Mechanic: Jack Lima MD. Drawing Supervisor: Dilip Vivas MD. Conscious sedation: 2.0 [...] bleeding, infection, injury to adjacent structures/bowel, adverse me dication reaction, the patient's abdomen was prepped and [...] After the tract was dilated, a 14 German catheter was placed into the stomach. The [...] sedation. Signed: Jack Lima Verified Date/Time: 07/11/2018 14:18:50 Reading Location: [address] Body Reading Room Electronically signed by: JACK Rose 07/11/2018 02:18 PMTSH/FREE T4 IF [id number] 13:24:00 Test Item Value Reference Range Interpretation Comments THYROID STIMULATING HORMONE 2.37 uIU/mL 0.35-4.94 (BEAKER) (test code = 772) RAD, CHEST, PA OR AP, 1 [id number] 11:03:00Reason for exam:->coughShould this be performed at the bedside?->NoFINAL REPORT AP chest HISTORY: Cough. COMPARISON: 06/17/2018. IMPRESSION: Tracheostomy tube present. Heart size normal. Lungs clear without effusion or pneumothorax. Intact skeleton. Signed: Ashok Whitakerort Verified Date/Time: 07/10/2018 11:03:24 Reading Location: [address] Radiology Reading Room 11:03 AMCOMPREHENSIVE METABOLIC [id number] 10:52:00 Test Item Value Reference Range Interpretation Comments TOTAL PROTEIN 7.2 gm/dL 6.0-8.3 (BEAKER) (test code = 770) ALBUMIN (BEAKER) 3.9 g/dL 3.5-5.0 (test code = 1145) ALKALINE PHOSPHATASE 98 U/L 40-150 (BEAKER) (test code = 346) BILIRUBIN TOTAL 0.4 mg/dL 0.2-1.2 (BEAKER) (test code = 377) SODIUM (BEAKER) (test 141 meq/L 136-145 code = 381) POTASSIUM (BEAKER) 4.4 meq/L 3.5-5.1 (test code = 379) CHLORIDE (BEAKER) 109 meq/L 98-107 H (test code = 382) CO2 (BEAKER) (test 24 meq/L 22-29 code = 355) BLOOD UREA NITROGEN 14 mg/dL 7-21 (BEAKER) (test code = 354) CREATININE (BEAKER) 0.78 mg/dL 0.57-1.25 (test code = 358) GLUCOSE RANDOM 107 mg/dL 70-105 H (BEAKER) (test code = 652) CALCIUM (BEAKER) 9.4 mg/dL 8.4-10.2 (test code = 697) AST (SGOT) (BEAKER) 17 U/L 5-34 (test code = 353) ALT (SGPT) (BEAKER) 17 U/L 6-55 (test code = 347) EGFR (BEAKER) (test 106 ESTIMATE D GFR IS code = 1092) mL/min/1.73 sq NOT ACCURA TE m CREATININE CLEARANCE IN PREDICTING GLOMERULAR FILTRATION RATE . ESTIMATED GFR I S NOT APPLICABLE FOR DIALYSIS PATIEN TS. CBC W/PLT COUNT & AUTO [id number] 10:32:00 Test Item Value Reference Range Interpretation Comments WHITE BLOOD CELL COUNT (BEAKER) 10.8 K/ L 3.5-10.5 H (test code = 775) RED BLOOD CELL COUNT (BEAKER) 4.08 M/ L 4.63-6.08 L (test code = 761) HEMOGLOBIN (BEAKER) (test code = 12.6 GM/DL 13.7-17.5 L 410) HEMATOCRIT (BEAKER) (test code = 39.4 % 40.1-51.0 L 411) MEAN CORPUSCULAR VOLUME (BEAKER) 96.6 fL 79.0-92.2 H (test code = 753) MEAN CORPUSCULAR HEMOGLOBIN 30.9 pg 25.7-32.2 (BEAKER) (test code = 751) MEAN CORPUSCULAR HEMOGLOBIN CONC 32.0 GM/DL 32.3-36.5 L (BEAKER) (test code = 752) RED CELL DISTRIBUTION WIDTH 15.3 % 11.6-14.4 H (BEAKER) (test code = 412) PLATELET COUNT (BEAKER) (test 321 K/CU MM 150-450 code = 756) MEAN PLATELET VOLUME (BEAKER) 9.9 fL 9.4-12.4 (test code = 754) NUCLEATED RED BLOOD CELLS 0 /100 WBC 0-0 (BEAKER) (test code = 413) NEUTROPHILS RELATIVE PERCENT 76 % (BEAKER) (test code = 429) LYMPHOCYTES RELATIVE PERCENT 7 % (BEAKER) (test code = 430) MONOCYTES RELATIVE PERCENT 10 % (BEAKER) (test code = 431) EOSINOPHILS RELATIVE PERCENT 2 % (BEAKER) (test code = 432) BASOPHILS RELATIVE PERCENT 1 % (BEAKER) (test code = 437) NEUTROPHILS ABSOLUTE COUNT 8.18 K/ L 1.78-5.38 H (BEAKER) (test code = 670) LYMPHOCYTES ABSOLUTE COUNT 0.79 K/ L 1.32-3.57 L (BEAKER) (test code = 414) MONOCYTES ABSOLUTE COUNT (BEAKER) 1.04 K/ L 0.30-0.82 H (test code = 415) EOSINOPHILS ABSOLUTE COUNT 0.16 K/ L 0.04-0.54 (BEAKER) (test code = 416) BASOPHILS ABSOLUTE COUNT (BEAKER) 0.13 K/ L 0.01-0.08 H (test code = 417) IMMATURE GRANULOCYTES-RELATIVE 5 % 0-1 H PERCENT (BEAKER) (test code = 2801) [id number] 10:30:00 Test Item Value Reference Range Interpretation Comments PROTIME (BEAKER) (test code = 14.6 seconds 11.7-14.7 759) INR (BEAKER) (test code = 370) 1.1 <=5.9 PARTIAL THROMBOPLASTIN TIME 34.3 seconds 22.5-36.0 (BEAKER) (test code = 760) RECOMMENDED COUMADIN/WARFARIN INR THERAPY RANGESSTANDARD DOSE: 2.0 - 3.0 Includes: PROPHYLAXIS forvenous thrombosis, systemic embolization; TREATMENT for venous thrombosis and/or pulmonary embolus.HIGH RISK: Target INR is 2.5-3.5 for patients with mechanical heart valves.BLOOD [id number] 20:01:00 Test Item Value Reference Range Interpretation Comments CULTURE (BEAKER) (test No growth in 5 days code = 1095) BLOOD [id number] 20:01:00 Test Item Value Reference Range Interpretation Comments CULTURE (BEAKER) (test No growth in 5 days code = 1095) CBC W/PLT COUNT & AUTO [id number] 12:54:00 Test Item Value Reference Range Interpretation Comments WHITE BLOOD CELL COUNT (BEAKER) 6.6 K/ L 3.5-10.5 (test code = 775) RED BLOOD CELL COUNT (BEAKER) 3.84 M/ L 4.63-6.08 L (test code = 761) HEMOGLOBIN (BEAKER) (test code = 11.9 GM/DL 13.7-17.5 L 410) HEMATOCRIT (BEAKER) (test code = 37.1 % 40.1-51.0 L 411) MEAN CORPUSCULAR VOLUME (BEAKER) 96.6 fL 79.0-92.2 H (test code = 753) MEAN CORPUSCULAR HEMOGLOBIN 31.0 pg 25.7-32.2 (BEAKER) (test code = 751) MEAN CORPUSCULAR HEMOGLOBIN CONC 32.1 GM/DL 32.3-36.5 L (BEAKER) (test code = 752) RED CELL DISTRIBUTION WIDTH 15.1 % 11.6-14.4 H (BEAKER) (test code = 412) PLATELET COUNT (BEAKER) (test 282 K/CU MM 150-450 code = 756) MEAN PLATELET VOLUME (BEAKER) 10.3 fL 9.4-12.4 (test code = 754) NUCLEATED RED BLOOD CELLS 0 /100 WBC 0-0 (BEAKER) (test code = 413) (CELLAVISION MANUAL DIFF)2018-06-21 12:54:00 Test Item Value Reference Range Interpretation Comments NEUTROPHILS - REL 63 % (CELLAVISION)(BEAKER) (test code = 2816) LYMPHOCYTES - REL 10 % (CELLAVISION)(BEAKER) (test code = 2817) MONOCYTES - REL 8 % (CELLAVISION)(BEAKER) (test code = 2818) EOSINOPHILS - REL 2 % (CELLAVISION)(BEAKER) (test code = 2819) BASOPHILS - REL 2 % (CELLAVISION)(BEAKER) (test code = 2820) METAMYELOCYTES - REL 2 % 0-0 H (CELLAVISION)(BEAKER) (test code = 2821) BANDS - REL (CELLAVISION)(BEAKER) 12 % 0-10 H (test code = 2826) NEUTROPHILS - ABS 4.16 K/ul 1.78-5.38 (CELLAVISION)(BEAKER) (test code = 2830) LYMPHOCYTES - ABS 0.66 K/ul 1.32-3.57 L (CELLAVISION)(BEAKER) (test code = 2831) MONOCYTES - ABS 0.53 K/uL 0.30-0.82 (CELLAVISION)(BEAKER) (test code = 2832) EOSINOPHILS - ABS 0.13 K/uL 0.04-0.54 (CELLAVISION)(BEAKER) (test code = 2834) BASOPHILS - ABS 0.13 K/uL 0.01-0.08 H (CELLAVISION)(BEAKER) (test code = 2835) METAMYELOCYTES - ABS 0.13 K/uL 0.00-0.00 H (CELLAVISION)(BEAKER) (test code = 2836) BANDS - ABS (CELLAVISION)(BEAKER) 0.79 K/uL 0.00-0.80 (test code = 2840) TOTAL COUNTED (BEAKER) (test code = 100 1351) WBC MORPHOLOGY (BEAKER) (test code Normal = 487) GIANT PLATELETS (BEAKER) (test code Present = 313) ANISOCYTOSIS (BEAKER) (test code = 1+ few 961) ARTIFACT (CELLAVISION)(BEAKER) Present (test code = 3432) PLATELET CONCENTRATION Adequate (CELLAVISION)(BEAKER) (test code = 3438) Received comment: User comments: Slide comments:BASIC METABOLIC [id number] 06:44:00 Test Item Value Reference Range Interpretation Comments SODIUM (BEAKER) 137 meq/L 136-145 (test code = 381) POTASSIUM (BEAKER) 4.0 meq/L 3.5-5.1 (test code = 379) CHLORIDE (BEAKER) 102 meq/L 98-107 (test code = 382) CO2 (BEAKER) (test 27 meq/L 22-29 code = 355) BLOOD UREA NITROGEN 9 mg/dL 7-21 (BEAKER) (test code = 354) CREATININE (BEAKER) 0.66 mg/dL 0.57-1.25 (test code = 358) GLUCOSE RANDOM 99 mg/dL 70-105 (BEAKER) (test code = 652) CALCIUM (BEAKER) 9.0 mg/dL 8.4-10.2 (test code = 697) EGFR (BEAKER) (test 129 mL/min/1.73 ESTIM ATED GFR IS code = 1092) sq m NOT ACCURATE CREATININE CLEARANCE IN PREDICTING GLOMERULAR FILTRATION RATE . ESTIMATED GFR I S NOT APPLICABLE FOR DIALYSIS PATIEN TS. BLOOD [id number] 12:01:00 Test Item Value Reference Range Interpretation Comments CULTURE (BEAKER) (test No growth in 5 days code = 1095) CBC W/PLT COUNT & AUTO [id number] 11:06:00 Test Item Value Reference Range Interpretation Comments WHITE BLOOD CELL COUNT (BEAKER) 6.7 K/ L 3.5-10.5 (test code = 775) RED BLOOD CELL COUNT (BEAKER) 3.88 M/ L 4.63-6.08 L (test code = 761) HEMOGLOBIN (BEAKER) (test code = 12.4 GM/DL 13.7-17.5 L 410) HEMATOCRIT (BEAKER) (test code = 36.8 % 40.1-51.0 L 411) MEAN CORPUSCULAR VOLUME (BEAKER) 94.8 fL 79.0-92.2 H (test code = 753) MEAN CORPUSCULAR HEMOGLOBIN 32.0 pg 25.7-32.2 (BEAKER) (test code = 751) MEAN CORPUSCULAR HEMOGLOBIN CONC 33.7 GM/DL 32.3-36.5 (BEAKER) (test code = 752) RED CELL DISTRIBUTION WIDTH 15.3 % 11.6-14.4 H (BEAKER) (test code = 412) PLATELET COUNT (BEAKER) (test 218 K/CU MM 150-450 code = 756) MEAN PLATELET VOLUME (BEAKER) 10.5 fL 9.4-12.4 (test code = 754) NUCLEATED RED BLOOD CELLS 0 /100 WBC 0-0 (BEAKER) (test code = 413) (CELLAVISION MANUAL DIFF)2018-06-20 11:06:00 Test Item Value Reference Range Interpretation Comments NEUTROPHILS - REL 77 % (CELLAVISION)(BEAKER) (test code = 2816) LYMPHOCYTES - REL 6 % (CELLAVISION)(BEAKER) (test code = 2817) MONOCYTES - REL 3 % (CELLAVISION)(BEAKER) (test code = 2818) EOSINOPHILS - REL 2 % (CELLAVISION)(BEAKER) (test code = 2819) BANDS - REL (CELLAVISION)(BEAKER) 10 % 0-10 (test code = 2826) ATYPICAL LYMPHOCYTES - REL 2 % 0-0 H (CELLAVISION)(BEAKER) (test code = 2829) NEUTROPHILS - ABS 5.16 K/ul 1.78-5.38 (CELLAVISION)(BEAKER) (test code = 2830) LYMPHOCYTES - ABS 0.40 K/ul 1.32-3.57 L (CELLAVISION)(BEAKER) (test code = 2831) MONOCYTES - ABS 0.20 K/uL 0.30-0.82 L (CELLAVISION)(BEAKER) (test code = 2832) EOSINOPHILS - ABS 0.13 K/uL 0.04-0.54 (CELLAVISION)(BEAKER) (test code = 2834) BANDS - ABS (CELLAVISION)(BEAKER) 0.67 K/uL 0.00-0.80 (test code = 2840) ATYPICAL LYMPHOCYTES - ABS 0.13 K/uL 0.00-0.00 H (CELLAVISION)(BEAKER) (test code = 5788) TOTAL COUNTED (BEAKER) (test code = 100 1351) CLUMPED PLATELETS (BEAKER) (test Present code = 436) SMUDGE CELLS (BEAKER) (test code = Present 1371) GIANT PLATELETS (BEAKER) (test code Present = 313) TOXIC GRANULATION (BEAKER) (test Present code = 771) ANISOCYTOSIS (BEAKER) (test code = 1+ few 961) PLATELET CONCENTRATION Adequate (CELLAVISION)(BEAKER) (test code = 3438) Received comment: User comments: Slide comments:BASIC METABOLIC [id number] 08:11:00 Test Item Value Reference Range Interpretation Comments SODIUM (BEAKER) 134 meq/L 136-145 L (test code = 381) POTASSIUM (BEAKER) 3.8 meq/L 3.5-5.1 (test code = 379) CHLORIDE (BEAKER) 97 meq/L 98-107 L (test code = 382) CO2 (BEAKER) (test 29 meq/L 22-29 code = 355) BLOOD UREA NITROGEN 8 mg/dL 7-21 (BEAKER) (test code = 354) CREATININE (BEAKER) 0.65 mg/dL 0.57-1.25 (test code = 358) GLUCOSE RANDOM 93 mg/dL 70-105 (BEAKER) (test code = 652) CALCIUM (BEAKER) 9.0 mg/dL 8.4-10.2 (test code = 697) EGFR (BEAKER) (test 132 mL/min/1.73 ESTIM ATED GFR IS code = 1092) sq m NOT ACCURATE CREATININE CLEARANCE IN PREDICTING GLOMERULAR FILTRATION RATE . ESTIMATED GFR I S NOT APPLICABLE FOR DIALYSIS PATIEN TS. BLOOD [id number] 08:01:00 Test Item Value Reference Range Interpretation Comments CULTURE (BEAKER) (test No growth in 5 days code = 1095) BLOOD [id number] 02:00:00 Test Item Value Reference Range Interpretation Comments CULTURE (BEAKER) (test No growth in 5 days code = 1095) BLOOD [id number] 02:00:00 Test Item Value Reference Range Interpretation Comments CULTURE (BEAKER) (test No growth in 5 days code = 1095) CBC W/PLT COUNT & AUTO [id number] 15:32:00 Test Item Value Reference Range Interpretation Comments WHITE BLOOD CELL COUNT (BEAKER) 6.4 K/ L 3.5-10.5 (test code = 775) RED BLOOD CELL COUNT (BEAKER) 4.16 M/ L 4.63-6.08 L (test code = 761) HEMOGLOBIN (BEAKER) (test code = 13.2 GM/DL 13.7-17.5 L 410) HEMATOCRIT (BEAKER) (test code = 39.5 % 40.1-51.0 L 411) MEAN CORPUSCULAR VOLUME (BEAKER) 95.0 fL 79.0-92.2 H (test code = 753) MEAN CORPUSCULAR HEMOGLOBIN 31.7 pg 25.7-32.2 (BEAKER) (test code = 751) MEAN CORPUSCULAR HEMOGLOBIN CONC 33.4 GM/DL 32.3-36.5 (BEAKER) (test code = 752) RED CELL DISTRIBUTION WIDTH 15.7 % 11.6-14.4 H (BEAKER) (test code = 412) PLATELET COUNT (BEAKER) (test 148 K/CU MM 150-450 L code = 756) MEAN PLATELET VOLUME (BEAKER) 10.7 fL 9.4-12.4 (test code = 754) NUCLEATED RED BLOOD CELLS 0 /100 WBC 0-0 (BEAKER) (test code = 413) (CELLAVISION MANUAL DIFF)2018-06-19 15:32:00 Test Item Value Reference Range Interpretation Comments NEUTROPHILS - REL 73 % (CELLAVISION)(BEAKER) (test code = 2816) LYMPHOCYTES - REL 3 % (CELLAVISION)(BEAKER) (test code = 2817) MONOCYTES - REL 3 % (CELLAVISION)(BEAKER) (test code = 2818) METAMYELOCYTES - REL 2 % 0-0 H (CELLAVISION)(BEAKER) (test code = 2821) MYELOCYTES - REL 1 % 0-0 H (CELLAVISION)(BEAKER) (test code = 2822) BANDS - REL (CELLAVISION)(BEAKER) 16 % 0-10 H (test code = 2826) NEUTROPHILS - ABS 4.67 K/ul 1.78-5.38 (CELLAVISION)(BEAKER) (test code = 2830) LYMPHOCYTES - ABS 0.19 K/ul 1.32-3.57 L (CELLAVISION)(BEAKER) (test code = 2831) MONOCYTES - ABS 0.19 K/uL 0.30-0.82 L (CELLAVISION)(BEAKER) (test code = 2832) METAMYELOCYTES - ABS 0.13 K/uL 0.00-0.00 H (CELLAVISION)(BEAKER) (test code = 2836) MYELOCYTES-ABS 0.06 K/uL 0.00-0.00 H (CELLAVISION)(BEAKER) (test code = 2837) BANDS - ABS (CELLAVISION)(BEAKER) 1.02 K/uL 0.00-0.80 H (test code = 2840) TOTAL COUNTED (BEAKER) (test code 100 = 1351) GIANT PLATELETS (BEAKER) (test Present code = 313) TOXIC GRANULATION (BEAKER) (test Present code = 771) PLASMACYTOID LYMPHS(BEAKER) (test Present code = 1677) POLYCHROMATOPHILLIC RBCS(BEAKER) 1+ few (test code = 478) ANISOCYTOSIS (BEAKER) (test code 2+ moderate = 961) MICROCYTES (BEAKER) (test code = 2+ moderate 965) POIKILOCYTES (BEAKER) (test code 1+ few = 966) SPHEROCYTES (BEAKER) (test code = 1+ few 768) ARTIFACT (CELLAVISION)(BEAKER) Present (test code = 3432) HELMET CELLS 1+ few (CELLAVISION)(BEAKER) (test code = 3434) PLATELET CONCENTRATION Decreased (CELLAVISION)(BEAKER) (test code = 3438) Received comment: User comments: Slide comments:BASIC METABOLIC [id number] 07:38:00 Test Item Value Reference Range Interpretation Comments SODIUM (BEAKER) 132 meq/L 136-145 L (test code = 381) POTASSIUM (BEAKER) 3.5 meq/L 3.5-5.1 (test code = 379) CHLORIDE (BEAKER) 95 meq/L 98-107 L (test code = 382) CO2 (BEAKER) (test 27 meq/L 22-29 code = 355) BLOOD UREA NITROGEN 11 mg/dL 7-21 (BEAKER) (test code = 354) CREATININE (BEAKER) 0.61 mg/dL 0.57-1.25 (test code = 358) GLUCOSE RANDOM 94 mg/dL 70-105 (BEAKER) (test code = 652) CALCIUM (BEAKER) 8.8 mg/dL 8.4-10.2 (test code = 697) EGFR (BEAKER) (test 142 mL/min/1.73 ESTIM ATED GFR IS code = 1092) sq m NOT ACCURATE CREATININE CLEARANCE IN PREDICTING GLOMERULAR FILTRATION RATE . ESTIMATED GFR I S NOT APPLICABLE FOR DIALYSIS PATIEN TS. CBC W/PLT COUNT & AUTO [id number] 12:37:00 Test Item Value Reference Range Interpretation Comments WHITE BLOOD CELL COUNT (BEAKER) 8.5 K/ L 3.5-10.5 (test code = 775) RED BLOOD CELL COUNT (BEAKER) 4.16 M/ L 4.63-6.08 L (test code = 761) HEMOGLOBIN (BEAKER) (test code = 13.0 GM/DL 13.7-17.5 L 410) HEMATOCRIT (BEAKER) (test code = 38.5 % 40.1-51.0 L 411) MEAN CORPUSCULAR VOLUME (BEAKER) 92.5 fL 79.0-92.2 H (test code = 753) MEAN CORPUSCULAR HEMOGLOBIN 31.3 pg 25.7-32.2 (BEAKER) (test code = 751) MEAN CORPUSCULAR HEMOGLOBIN CONC 33.8 GM/DL 32.3-36.5 (BEAKER) (test code = 752) RED CELL DISTRIBUTION WIDTH 15.2 % 11.6-14.4 H (BEAKER) (test code = 412) PLATELET COUNT (BEAKER) (test 145 K/CU MM 150-450 L code = 756) MEAN PLATELET VOLUME (BEAKER) 10.3 fL 9.4-12.4 (test code = 754) NUCLEATED RED BLOOD CELLS 0 /100 WBC 0-0 (BEAKER) (test code = 413) (CELLAVISION MANUAL DIFF)2018-06-18 12:37:00 Test Item Value Reference Range Interpretation Comments NEUTROPHILS - REL 72 % (CELLAVISION)(BEAKER) (test code = 2816) LYMPHOCYTES - REL 2 % (CELLAVISION)(BEAKER) (test code = 2817) BANDS - REL (CELLAVISION)(BEAKER) 25 % 0-10 H (test code = 2826) ATYPICAL LYMPHOCYTES - REL 1 % 0-0 H (CELLAVISION)(BEAKER) (test code = 2829) NEUTROPHILS - ABS 6.12 K/ul 1.78-5.38 H (CELLAVISION)(BEAKER) (test code = 2830) LYMPHOCYTES - ABS 0.17 K/ul 1.32-3.57 L (CELLAVISION)(BEAKER) (test code = 2831) BANDS - ABS (CELLAVISION)(BEAKER) 2.13 K/uL 0.00-0.80 H (test code = 2840) ATYPICAL LYMPHOCYTES - ABS 0.09 K/uL 0.00-0.00 H (CELLAVISION)(BEAKER) (test code = 2858) TOTAL COUNTED (BEAKER) (test code = 100 1351) RBC MORPHOLOGY (BEAKER) (test code Normal = 762) SMUDGE CELLS (BEAKER) (test code = Present 1371) GIANT PLATELETS (BEAKER) (test code Present = 313) TOXIC GRANULATION (BEAKER) (test Present code = 771) PLATELET CONCENTRATION Decreased (CELLAVISION)(BEAKER) (test code = 3438) Received comment: User comments: Slide comments:BASIC METABOLIC [id number] 12:04:00 Test Item Value Reference Range Interpretation Comments SODIUM (BEAKER) 130 meq/L 136-145 L (test code = 381) POTASSIUM (BEAKER) 3.1 meq/L 3.5-5.1 L (test code = 379) CHLORIDE (BEAKER) 93 meq/L 98-107 L (test code = 382) CO2 (BEAKER) (test 27 meq/L 22-29 code = 355) BLOOD UREA NITROGEN < mg/dL 7-21 L (BEAKER) (test code = 354) CREATININE (BEAKER) 0.66 mg/dL 0.57-1.25 (test code = 358) GLUCOSE RANDOM 157 mg/dL 70-105 H (BEAKER) (test code = 652) CALCIUM (BEAKER) 8.6 mg/dL 8.4-10.2 (test code = 697) EGFR (BEAKER) (test 129 mL/min/1.73 ESTIM ATED GFR IS code = 1092) sq m NOT ACCURATE CREATININE CLEARANCE IN PREDICTING GLOMERULAR FILTRATION RATE . ESTIMATED GFR I S NOT APPLICABLE FOR DIALYSIS PATIEN TS. VANCOMYCIN LEVEL, [id number] 12:02:00 Test Item Value Reference Range Interpretation Comments VANCOMYCIN RANDOM (BEAKER) (test 1.3 ug/mL code = 523) Reference Range: No [id number] 12:00:00 Test Item Value Reference Range Interpretation Comments MAGNESIUM (BEAKER) (test code = 2.2 mg/dL 1.6-2.6 627) SPUTUM CULTURE + GRAM [id number] 11:45:00 Test Item Value Reference Range Interpretation Comments CULTURE (BEAKER) PSEUDOMONAS A 4+ Pseudomo ronak (test code = 1095) AERUGINOSA aeruginos a Amikacin (test code Susceptible 0-16 S = 1) , Resistant <0 or >16 Aztreonam (test Susceptible 0-8 , S code = 32) Resistant <0 or >8 Cefepime (test code Susceptible 0-8 , S = 51) Resistant <0 or >8 Ceftazidime (test Susceptible 0-8 , S code = 27) Resistant <0 or >8 Ciprofloxacin (test Susceptible 0-1 , S code = 7) Resistant <0 or >1 Gentamicin (test Susceptible 0-4 , S code = 18) Resistant <0 or >4 Imipenem (test code Susceptible 0-2 , S = 19) Resistant <0 or >2 Levofloxacin (test Susceptible 0-2 , S code = 22) Resistant <0 or >2 Meropenem (test Susceptible 0-2 , S code = 34) Resistant <0 or >2 Piperacillin (test Susceptible 0-16 S code = 24) , Resistant <0 or >16 Piperacillin + Susceptible 0-16 S Tazobactam (test , Resistant <0 or code = 29) >16 Tobramycin (test Susceptible 0-4 , S code = 25) Resistant <0 or >4 CULTURE (BEAKER) PSEUDOMONAS A 4+ Pseudomo ronak (test code = 1095) AERUGINOSA aeruginos a Amikacin (test code Susceptible 0-16 S = 1) , Resistant <0 or >16 Aztreonam (test Susceptible 0-8 , S code = 32) Resistant <0 or >8 Cefepime (test code Susceptible 0-8 , S = 51) Resistant <0 or >8 Ceftazidime (test Susceptible 0-8 , S code = 27) Resistant <0 or >8 Ciprofloxacin (test Susceptible 0-1 , S code = 7) Resistant <0 or >1 Gentamicin (test Susceptible 0-4 , S code = 18) Resistant <0 or >4 Imipenem (test code Susceptible 0-2 , S = 19) Resistant <0 or >2 Levofloxacin (test Susceptible 0-2 , S code = 22) Resistant <0 or >2 Meropenem (test Susceptible 0-2 , S code = 34) Resistant <0 or >2 Piperacillin (test Susceptible 0-16 S code = 24) , Resistant <0 or >16 Piperacillin + Susceptible 0-16 S Tazobactam (test , Resistant <0 or code = 29) >16 Tobramycin (test Susceptible 0-4 , S code = 25) Resistant <0 or >4 GRAM STAIN RESULT 1+ WBCs (BEAKER) (test code = 1123) GRAM STAIN RESULT 15-20 epithelial (BEAKER) (test code cells = 781043) GRAM STAIN RESULT <1+ gram negative (BEAKER) (test code coccobacilli = 483065) GRAM STAIN RESULT <1+ gram positive (BEAKER) (test code cocci in pairs = 456269) GRAM STAIN RESULT <1+ yeast with (BEAKER) (test code pseudohyphae = 873293) GRAM STAIN RESULT 1+ gram variable (BEAKER) (test code rods = 358214) 1+ Normal [facility] DIFFERENTIAL 2018-06-17 18:36:00 Test Item Value Reference Range Interpretation Comments WHITE BLOOD CELL COUNT (BEAKER) 7.3 K/ L 3.5-10.5 (test code = 775) RED BLOOD CELL COUNT (BEAKER) 4.53 M/ L 4.63-6.08 L (test code = 761) HEMOGLOBIN (BEAKER) (test code = 14.4 GM/DL 13.7-17.5 410) HEMATOCRIT (BEAKER) (test code = 42.2 % 40.1-51.0 411) MEAN CORPUSCULAR VOLUME (BEAKER) 93.2 fL 79.0-92.2 H (test code = 753) MEAN CORPUSCULAR HEMOGLOBIN 31.8 pg 25.7-32.2 (BEAKER) (test code = 751) MEAN CORPUSCULAR HEMOGLOBIN CONC 34.1 GM/DL 32.3-36.5 (BEAKER) (test code = 752) RED CELL DISTRIBUTION WIDTH 15.0 % 11.6-14.4 H (BEAKER) (test code = 412) PLATELET COUNT (BEAKER) (test 170 K/CU MM 150-450 code = 756) MEAN PLATELET VOLUME (BEAKER) 10.1 fL 9.4-12.4 (test code = 754) NUCLEATED RED BLOOD CELLS 0 /100 WBC 0-0 (BEAKER) (test code = 413) NEUTROPHILS RELATIVE PERCENT 92 % (BEAKER) (test code = 429) LYMPHOCYTES RELATIVE PERCENT 4 % (BEAKER) (test code = 430) MONOCYTES RELATIVE PERCENT 2 % (BEAKER) (test code = 431) EOSINOPHILS RELATIVE PERCENT 0 % (BEAKER) (test code = 432) BASOPHILS RELATIVE PERCENT 0 % (BEAKER) (test code = 437) NEUTROPHILS ABSOLUTE COUNT 6.75 K/ L 1.78-5.38 H (BEAKER) (test code = 670) LYMPHOCYTES ABSOLUTE COUNT 0.27 K/ L 1.32-3.57 L (BEAKER) (test code = 414) MONOCYTES ABSOLUTE COUNT (BEAKER) 0.15 K/ L 0.30-0.82 L (test code = 415) EOSINOPHILS ABSOLUTE COUNT 0.00 K/ L 0.04-0.54 L (BEAKER) (test code = 416) BASOPHILS ABSOLUTE COUNT (BEAKER) 0.02 K/ L 0.01-0.08 (test code = 417) IMMATURE GRANULOCYTES-RELATIVE 2 % 0-1 H PERCENT (BEAKER) (test code = 2801) [id number] 14:37:00 Test Item Value Reference Range Interpretation Comments PROCALCITONIN (BEAKER) (test code 0.08 ng/mL <0.05 H = 3036) SEPSIS RISK (ng/mL)Low: 0.05-0.50Intermediate: 0.51-2.00High: >=2.01LACTIC ACID, [id number] 13:43:00 Test Item Value Reference Range Interpretation Comments LACTATE BLOOD VENOUS 2.4 mmol/L 0.5-2.2 H Specime n slightly (2) (BEAKER) (test hemolyzed code = 8750) TISSUE [id number] 13:24:00Surgical Pathology Report Case: [id number] Authorizing Provider: Guilherme Fraire MD Collected: 06/09/2018 1735 Ordering Location: [address] Received: 06/10/2018 0811 Cardiovascular Pathologist: Jennifer Hull MD Specimen: SoftTissue, Other, LEFT SUPRAGLOTTIC MASS LEFT SUPRAGLOTTIC MASS, LARYNGOSCOPIC BIOPSY: - ATYPICAL SQUAMOUS PROLIFERATION (SEE COMMENT) Signing Pathologist Direct Phone Line: [phone] signed by Jennifer Hull MD on 06/17/2018 at 1:24 PMThese are superficial fragments with hyperplasia, keratosis and dysplasia. Note is made of thehistory of chemoradiation. Ulceration, inflammation, atypical stromal cells and necrosis seen, may be due to the effect of chemoradiation. Immunohistochemical studies for AE1/AE3 and p53 confirm that the atypical cells in the stroma are likely reactive stromal cells. No invasive carcinoma is seen. Thebiopsy may not be telephone service representative of the entirelesion; Clinical correlation is recommended.34914; 12297; 72965Fqhylylvy mass Left subglottic massThe specimen is received in a fluidless container labeled with patient information and labeled "left supraglottic mass" consisting of four fragments of red soft tissue ranging from 0.1 to 0.4 cm, submitted entirely A1. CG/pl PERFORMEDThe interpretation of this case included the use of immunohistochemistry or special stains. p53 and AE1/IV6Smouzqstumjeznmpmgwm technical testing was performed at [facility], Pathology Laboratory where it was developed [...] high complexity clinical laboratory testing.FL, ESOPH, SWALLOW FUNCTION, WITH CINE OR [id number] 12:08:00Reason for exam:->silent aspiration evaluationFINAL REPORT Modified barium swallow. CLINICAL HISTORY: silent aspiration evaluation. COMPARISON STUDY: None available. FINDINGS: Under the direction of patient's speech pathologist, the patient ingested thin barium, thick barium, barium- coated crackers and barium pur\\[id number]\\[id number]. No evidence of laryngeal penetration or aspiration is seen with any of the consistencies. Please refer to the speech pathology notes for further discussion. Fluoroscopy time: 0.4 minutes. One image. Signed: Josias Barrettort Verified Date/Time: 06/17/2018 12:08:38 Reading Location: [facility] C013X Ortho Consult Reading Room [id number] 09:44:00 Test Item Value Reference Range Interpretation Comments MAGNESIUM (BEAKER) (test code = 1.9 mg/dL 1.6-2.6 627) [id number] 09:44:00 Test Item Value Reference Range Interpretation Comments PHOSPHORUS (BEAKER) (test code = 2.9 mg/dL 2.3-4.7 604) RAD, CHEST, 1 VIEW, NON [id number] 08:16:00Reason for exam:->SOBShould this be performed at the bedside?->YesFINAL REPORT Chest one view. Clinical history: SOB Comparison: June 16, 2018 Discussion: A frontal chest is provided. Cardiomediastinal contours are unchanged. Tracheostomy tube is in stable position. Unchanged patchy bibasilar airspace opacities. There is mild degree of interstitial prominence that may reflect edema. No pneumothorax or large effusion. Signed: Roger Avelar Verified Date/Time: 06/17/2018 08:16:46 Reading Location: [facility] Radiology Reading Room BASIC METABOLIC [id number] 06:25:00 Test Item Value Reference Range Interpretation Comments SODIUM (BEAKER) 134 meq/L 136-145 L (test code = 381) POTASSIUM (BEAKER) 3.7 meq/L 3.5-5.1 (test code = 379) CHLORIDE (BEAKER) 95 meq/L 98-107 L (test code = 382) CO2 (BEAKER) (test 31 meq/L 22-29 H code = 355) BLOOD UREA NITROGEN 15 mg/dL 7-21 (BEAKER) (test code = 354) CREATININE (BEAKER) 0.77 mg/dL 0.57-1.25 (test code = 358) GLUCOSE RANDOM 89 mg/dL 70-105 (BEAKER) (test code = 652) CALCIUM (BEAKER) 8.9 mg/dL 8.4-10.2 (test code = 697) EGFR (BEAKER) (test 108 mL/min/1.73 ESTIM ATED GFR IS code = 1092) sq m NOT ACCURATE CREATININE CLEARANCE IN PREDICTING GLOMERULAR FILTRATION RATE . ESTIMATED GFR I S NOT APPLICABLE FOR DIALYSIS PATIEN TS. VANCOMYCIN LEVEL, [id number] 06:25:00 Test Item Value Reference Range Interpretation Comments VANCOMYCIN RANDOM (BEAKER) (test 9.6 ug/mL code = 523) Reference Range: No NormalsDraw 30 min prior to scheduled dose, HOLD if level > 20 mcg/mL, informMD.RESPIRATORY PANEL [id number] 12:23:00 Test Item Value Reference Range Interpretation Comments HUMAN METAPNEUMOVIRUS Not detected Not detected, (BEAKER) (test code = Equivocal 2683) RHINOVIRUS (BEAKER) Not detected Not detected, (test code = 2684) Equivocal INFLUENZA A (BEAKER) Not detected Not detected, (test code = 2685) Equivocal INFLUENZA A (NO SUBTYPE) Not detected, (test code = 3606) Equivocal INFLUENZA A SUBTYPE H1 Not detected, (BEAKER) (test code = Equivocal 2686) INFLUENZA A SUBTYPE H3 Not detected, (BEAKER) (test code = Equivocal 2687) INFLUENZA A SUBTYPE Not detected, H1-2009 (BEAKER) (test Equivocal code = 3198) INFLUENZA B (BEAKER) Not detected Not detected, (test code = 2688) Equivocal RESPIRATORY SYNCYTIAL Not detected Not detected, VIRUS (BEAKER) (test Equivocal code = 3199) PARAINFLUENZA VIRUS 1 Not detected Not detected, (BEAKER) (test code = Equivocal 2691) PARAINFLUENZA VIRUS 2 Not detected Not detected, (BEAKER) (test code = Equivocal 2692) PARAINFLUENZA VIRUS 3 Not detected Not detected, (BEAKER) (test code = Equivocal 2693) PARAINFLUENZA VIRUS 4 Not detected Not detected, (BEAKER) (test code = Equivocal 3200) ADENOVIRUS (BEAKER) Not detected Not detected, (test code = 2694) Equivocal CORONAVIRUS 229E Detected Not detected, A Droplet (BEAKER) (test code = Equivocal isolat ion. 3201) Consider stopping antibiotics. CORONAVIRUS HKU1 Not detected Not detected, (BEAKER) (test code = Equivocal 3202) CORONAVIRUS NL63 Not detected Not detected, (BEAKER) (test code = Equivocal 3203) CORONAVIRUS OC43 Not detected Not detected, (BEAKER) (test code = Equivocal 3204) BORDETELLA PERTUSSIS Not detected Not detected, (BEAKER) (test code = Equivocal 3205) CHLAMYDOPHILA PNEUMONIAE Not detected Not detected, (BEAKER) (test code = Equivocal 3206) MYCOPLASMA PNEUMONIAE Not detected Not detected, (BEAKER) (test code = Equivocal 3207) Other viruses and bacteria not targeted by this PCR panel cannot be excluded; therefore clinical correlation and follow up of serology, culture results, and other molecular studies is required. The results are not intended to be used as the sole means for clinical diagnosis or patient management decisions. This sample was tested at the [facility] using the PovoArray Respiratory Panel. It is FDA cleared and has been verified and approved by the [facility] for clinical use on nasal swab specimens. It is not FDA-cleared for use on bronchial wash/lavage samples. However, for this sample type, validation was performed and test characteristics were determined and approved, by [facility] for clinical use under the Clinical Laboratory Improvement Amendments (CLIA) of 1988 requirements. Therefore, FDA clearance isnot required. This laboratory is CLIA- certified and [employer] ([employer])-accredited to perform high complexity testing.CBC W/PLT COUNT & AUTO [id number] 11:27:00 Test Item Value Reference Range Interpretation Comments WHITE BLOOD CELL COUNT (BEAKER) 10.5 K/ L 3.5-10.5 (test code = 775) RED BLOOD CELL COUNT (BEAKER) 4.20 M/ L 4.63-6.08 L (test code = 761) HEMOGLOBIN (BEAKER) (test code = 13.6 GM/DL 13.7-17.5 L 410) HEMATOCRIT (BEAKER) (test code = 40.5 % 40.1-51.0 411) MEAN CORPUSCULAR VOLUME (BEAKER) 96.4 fL 79.0-92.2 H (test code = 753) MEAN CORPUSCULAR HEMOGLOBIN 32.4 pg 25.7-32.2 H (BEAKER) (test code = 751) MEAN CORPUSCULAR HEMOGLOBIN CONC 33.6 GM/DL 32.3-36.5 (BEAKER) (test code = 752) RED CELL DISTRIBUTION WIDTH 15.1 % 11.6-14.4 H (BEAKER) (test code = 412) PLATELET COUNT (BEAKER) (test 142 K/CU MM 150-450 L code = 756) MEAN PLATELET VOLUME (BEAKER) 10.3 fL 9.4-12.4 (test code = 754) NUCLEATED RED BLOOD CELLS 0 /100 WBC 0-0 (BEAKER) (test code = 413) (CELLAVISION MANUAL DIFF)2018-06-16 11:27:00 Test Item Value Reference Range Interpretation Comments NEUTROPHILS - REL 51 % (CELLAVISION)(BEAKER) (test code = 2816) LYMPHOCYTES - REL 1 % (CELLAVISION)(BEAKER) (test code = 2817) MONOCYTES - REL 2 % (CELLAVISION)(BEAKER) (test code = 2818) MYELOCYTES - REL 1 % 0-0 H (CELLAVISION)(BEAKER) (test code = 2822) PROMYELOCYTES - REL 1 % 0-0 H (CELLAVSION)(BEAKER) (test code = 2825) BANDS - REL (CELLAVISION)(BEAKER) 44 % 0-10 H (test code = 2826) NEUTROPHILS - ABS 5.36 K/ul 1.78-5.38 (CELLAVISION)(BEAKER) (test code = 2830) LYMPHOCYTES - ABS 0.11 K/ul 1.32-3.57 L (CELLAVISION)(BEAKER) (test code = 2831) MONOCYTES - ABS 0.21 K/uL 0.30-0.82 L (CELLAVISION)(BEAKER) (test code = 2832) MYELOCYTES-ABS 0.11 K/uL 0.00-0.00 H (CELLAVISION)(BEAKER) (test code = 2837) PROMYELOCYTES - ABS 0.11 K/uL 0.00-0.00 H (CELLAVISION)(BEAKER) (test code = 2838) BANDS - ABS (CELLAVISION)(BEAKER) 4.62 K/uL 0.00-0.80 H (test code = 2840) TOTAL COUNTED (BEAKER) (test code 100 = 1351) MANUAL NRBC PER 100 CELLS (BEAKER) 1 /100 WBC 0-0 H (test code = 1353) SMUDGE CELLS (BEAKER) (test code = Present 1371) GIANT PLATELETS (BEAKER) (test Present code = 313) POLYCHROMATOPHILLIC RBCS(BEAKER) 1+ few (test code = 478) ANISOCYTOSIS (BEAKER) (test code = 1+ few 961) MICROCYTES (BEAKER) (test code = 1+ few 965) POIKILOCYTES (BEAKER) (test code = 1+ few 966) ARTIFACT (CELLAVISION)(BEAKER) Present (test code = 3432) PLATELET CONCENTRATION Adequate (CELLAVISION)(BEAKER) (test code = 3438) Received comment: User comments: Slide comments:CT, CHEST WITH IV CONTRAST- PE TEST [id number] 09:53:00Worsening hypoxia s/o diagnosis and excision of [...] MDReport Verified Date/Time: 06/16/2018 09:53:01 Reading Location: [facility] Diagnostic Imaging Reading Room - [place] [address] RAD, CHEST, 1 VIEW, NON [id number] 07:36:00Reason for exam:->recent pneumothorax, new trachShould this [...] lobes suspicious for pneumonia. Signed: Lucy Morales Verified Date/Time: 06/16/2018 07:36:27 Reading Location: [facility] Radiology Reading Room BASIC METABOLIC [id number] 05:45:00 Test Item Value Reference Range Interpretation Comments SODIUM (BEAKER) 132 meq/L 136-145 L (test code = 381) POTASSIUM (BEAKER) 3.9 meq/L 3.5-5.1 (test code = 379) CHLORIDE (BEAKER) 92 meq/L 98-107 L (test code = 382) CO2 (BEAKER) (test 27 meq/L 22-29 code = 355) BLOOD UREA NITROGEN 13 mg/dL 7-21 (BEAKER) (test code = 354) CREATININE (BEAKER) 0.83 mg/dL 0.57-1.25 (test code = 358) GLUCOSE RANDOM 129 mg/dL 70-105 H (BEAKER) (test code = 652) CALCIUM (BEAKER) 9.5 mg/dL 8.4-10.2 (test code = 697) EGFR (BEAKER) (test 99 mL/min/1.73 ESTIMA NEIDA GFR IS code = 1092) sq m NOT ACCURATE CREATININE CLEARANCE IN PREDICTING GLOMERULAR FILTRATION RATE . ESTIMATED GFR I S NOT APPLICABLE FOR DIALYSIS PATIEN TS. [id number] 18:12:00 Test Item Value Reference Range Interpretation Comments MAGNESIUM (BEAKER) 2.0 mg/dL 1.6-2.6 Specimen slightly (test code = 627) hemolyzed BASIC METABOLIC [id number] 18:12:00 Test Item Value Reference Range Interpretation Comments SODIUM (BEAKER) 130 meq/L 136-145 L (test code = 381) POTASSIUM (BEAKER) 3.7 meq/L 3.5-5.1 Specimen slightly (test code = 379) hemolyzed CHLORIDE (BEAKER) 91 meq/L 98-107 L (test code = 382) CO2 (BEAKER) (test 27 meq/L 22-29 code = 355) BLOOD UREA NITROGEN 14 mg/dL 7-21 (BEAKER) (test code = 354) CREATININE (BEAKER) 0.78 mg/dL 0.57-1.25 Specimen slightly (test code = 358) hemolyzed GLUCOSE RANDOM 85 mg/dL 70-105 (BEAKER) (test code = 652) CALCIUM (BEAKER) 8.9 mg/dL 8.4-10.2 (test code = 697) EGFR (BEAKER) (test 107 mL/min/1.73 ESTIM ATED GFR IS code = 1092) sq m NOT ACCURATE CREATININE CLEARANCE IN PREDICTING GLOMERULAR FILTRATION RATE . ESTIMATED GFR I S NOT APPLICABLE FOR DIALYSIS PATIEN TS. RAD, CHEST, 1 VIEW, NON [id number] 13:18:00Reason for exam:->recent pneumothorax, new trachShould this be performed at the bedside?->YesFINAL REPORT RAD, CHEST, 1 VIEW, NON DEPT INDICATION: recent pneumothorax, new trach COMPARISON: Six hours prior FINDINGS: Portable frontal view of the chest. IMPRESSION: Support Lines: Stable tracheostomy tube. Lungs and pleura: Stable consolidation in the right base. Subsegmental atelectasis on the left with its effusion. No pneumothorax.Heart and mediastinum: Stable contou rs. Additional findings: None. Signed: JR Humberto, Jimmie Verduzcoort Verified Date/Time: 06/15/2018 13:18:45 Reading Location: [facility] C013V Neuro Reading Room BLOOD GAS, [id number] 11:41:00 Test Item Value Reference Range Interpretation Comments PH ARTERIAL (BEAKER) (test code = 7.50 7.35-7.45 H 383) PCO2 ARTERIAL (BEAKER) (test code 40 mmHg 35-45 = 384) PO2 ARTERIAL (BEAKER) (test code = 335 mmHg 80-90 H 385) O2 SATURATION ARTERIAL (BEAKER) 99.8 % 96.0-97.0 H (test code = 386) HCO3 ARTERIAL (BEAKER) (test code 29 mmol/L 21-29 = 388) BASE EXCESS ARTERIAL (BEAKER) 6.5 mmol/L -2.0-3.0 H (test code = 387) PATIENT TEMPERATURE (BEAKER) (test 39.3 C code = 1818) FIO2 (BEAKER) (test code = 1819) 100.0 % Obtain one hour post initaition of vent support \\[id number] 09:49:00 Test Item Value Reference Range Interpretation Comments TROPONIN I (BEAKER) (test code = 397) < ng/mL 0.00-0.03 Troponin I (TnI) levels [...] 2018-06-15 09:35:00 Test Item Value Reference Range Interpretation Comments B-TYPE NATRIURETIC PEPTIDE (BEAKER) 66 pg/mL 0-100 (test code = 700) [id number] 09:29:00 Test Item Value Reference Range Interpretation Comments D-DIMER QUANTITATIVE (BEAKER) 1.59 MG/L FEU <0.50 H (test code = 671) Intended Use: The D-Dimer Assay can be used to aid in the diagnosis of Deep Vein Thrombosis (DVT) and Pulmonary Embolism Disease (PED).In patients with low pre- test probability, various studies concerning STA Liatest D-dimer test have reported that with a cutoff value of 0.50 MG/L FEU, the Negative Predictive Value (NPV) regarding the exclusion of thrombosis is within 95-100% range. [id number] 09:12:00 Test Item Value Reference Range Interpretation Comments FIBRINOGEN LEVEL (BEAKER) (test 621 mg/dl 225-434 H code = 658) [id number] 09:10:00 Test Item Value Reference Range Interpretation Comments PHOSPHORUS (BEAKER) (test code = 2.8 mg/dL 2.3-4.7 604) [id number] 09:10:00 Test Item Value Reference Range Interpretation Comments MAGNESIUM (BEAKER) (test code = 1.9 mg/dL 1.6-2.6 627) COMPREHENSIVE METABOLIC [id number] 09:10:00 Test Item Value Reference Range Interpretation Comments TOTAL PROTEIN 5.9 gm/dL 6.0-8.3 L (BEAKER) (test code = 770) ALBUMIN (BEAKER) 3.3 g/dL 3.5-5.0 L (test code = 1145) ALKALINE PHOSPHATASE 73 U/L 40-150 (BEAKER) (test code = 346) BILIRUBIN TOTAL 1.3 mg/dL 0.2-1.2 H (BEAKER) (test code = 377) SODIUM (BEAKER) (test 127 meq/L 136-145 L code = 381) POTASSIUM (BEAKER) 3.8 meq/L 3.5-5.1 (test code = 379) CHLORIDE (BEAKER) 89 meq/L 98-107 L (test code = 382) CO2 (BEAKER) (test 28 meq/L 22-29 code = 355) BLOOD UREA NITROGEN 14 mg/dL 7-21 (BEAKER) (test code = 354) CREATININE (BEAKER) 0.78 mg/dL 0.57-1.25 (test code = 358) GLUCOSE RANDOM 87 mg/dL 70-105 (BEAKER) (test code = 652) CALCIUM (BEAKER) 8.8 mg/dL 8.4-10.2 (test code = 697) AST (SGOT) (BEAKER) 23 U/L 5-34 (test code = 353) ALT (SGPT) (BEAKER) 26 U/L 6-55 (test code = 347) EGFR (BEAKER) (test 107 ESTIMATE D GFR IS code = 1092) mL/min/1.73 sq NOT ACCURA TE m CREATININE CLEARANCE IN PREDICTING GLOMERULAR FILTRATION RATE . ESTIMATED GFR I S NOT APPLICABLE FOR DIALYSIS PATIEN TS. [id number] 09:01:00 Test Item Value Reference Range Interpretation Comments PROTIME (BEAKER) (test code = 15.2 seconds 11.7-14.7 H 759) INR (BEAKER) (test code = 370) 1.2 <=5.9 PARTIAL THROMBOPLASTIN TIME 31.6 seconds 22.5-36.0 (BEAKER) (test code = 760) RECOMMENDED COUMADIN/WARFARIN INR THERAPY RANGESSTANDARD DOSE: 2.0 - 3.0 Includes: PROPHYLAXIS forvenous thrombosis, systemic embolization; TREATMENT for venous thrombosis and/or pulmonary embolus.HIGH RISK: Target INR is 2.5-3.5 for patients with mechanical heart valves.LACTIC ACID, [id number] 08:51:00 Test Item Value Reference Range Interpretation Comments LACTATE BLOOD 0.8 mmol/L 0.5-2.2 Specimen sligh tly ARTERIAL (2) (BEAKER) hemoly zed (test code = 2874) BLOOD GAS, [id number] 08:40:00 Test Item Value Reference Range Interpretation Comments PH ARTERIAL (BEAKER) (test code = 7.51 7.35-7.45 H 383) PCO2 ARTERIAL (BEAKER) (test code 40 mmHg 35-45 = 384) PO2 ARTERIAL (BEAKER) (test code = 58 mmHg 80-90 L 385) O2 SATURATION ARTERIAL (BEAKER) 90.0 % 96.0-97.0 L (test code = 386) HCO3 ARTERIAL (BEAKER) (test code 31 mmol/L 21-29 H = 388) BASE EXCESS ARTERIAL (BEAKER) 8.3 mmol/L -2.0-3.0 H (test code = 387) PATIENT TEMPERATURE (BEAKER) (test 39.1 C code = 1818) FIO2 (BEAKER) (test code = 1819) 80.0 % [id number] 08:00:00 Test Item Value Reference Range Interpretation Comments MAGNESIUM (BEAKER) (test code = 1.8 mg/dL 1.6-2.6 627) Add onCBC W/PLT COUNT & AUTO [id number] 06:45:00 Test Item Value Reference Range Interpretation Comments WHITE BLOOD CELL COUNT (BEAKER) 10.2 K/ L 3.5-10.5 (test code = 775) RED BLOOD CELL COUNT (BEAKER) 4.12 M/ L 4.63-6.08 L (test code = 761) HEMOGLOBIN (BEAKER) (test code = 13.2 GM/DL 13.7-17.5 L 410) HEMATOCRIT (BEAKER) (test code = 40.8 % 40.1-51.0 411) MEAN CORPUSCULAR VOLUME (BEAKER) 99.0 fL 79.0-92.2 H (test code = 753) MEAN CORPUSCULAR HEMOGLOBIN 32.0 pg 25.7-32.2 (BEAKER) (test code = 751) MEAN CORPUSCULAR HEMOGLOBIN CONC 32.4 GM/DL 32.3-36.5 (BEAKER) (test code = 752) RED CELL DISTRIBUTION WIDTH 15.2 % 11.6-14.4 H (BEAKER) (test code = 412) PLATELET COUNT (BEAKER) (test 146 K/CU MM 150-450 L code = 756) MEAN PLATELET VOLUME (BEAKER) 9.9 fL 9.4-12.4 (test code = 754) NUCLEATED RED BLOOD CELLS 0 /100 WBC 0-0 (BEAKER) (test code = 413) NEUTROPHILS RELATIVE PERCENT 92 % (BEAKER) (test code = 429) LYMPHOCYTES RELATIVE PERCENT 3 % (BEAKER) (test code = 430) MONOCYTES RELATIVE PERCENT 2 % (BEAKER) (test code = 431) EOSINOPHILS RELATIVE PERCENT 0 % (BEAKER) (test code = 432) BASOPHILS RELATIVE PERCENT 0 % (BEAKER) (test code = 437) NEUTROPHILS ABSOLUTE COUNT 9.38 K/ L 1.78-5.38 H (BEAKER) (test code = 670) LYMPHOCYTES ABSOLUTE COUNT 0.30 K/ L 1.32-3.57 L (BEAKER) (test code = 414) MONOCYTES ABSOLUTE COUNT (BEAKER) 0.23 K/ L 0.30-0.82 L (test code = 415) EOSINOPHILS ABSOLUTE COUNT 0.00 K/ L 0.04-0.54 L (BEAKER) (test code = 416) BASOPHILS ABSOLUTE COUNT (BEAKER) 0.03 K/ L 0.01-0.08 (test code = 417) IMMATURE GRANULOCYTES-RELATIVE 3 % 0-1 H PERCENT (BEAKER) (test code = 2801) BASIC METABOLIC [id number] 06:35:00 Test Item Value Reference Range Interpretation Comments SODIUM (BEAKER) 127 meq/L 136-145 L (test code = 381) POTASSIUM (BEAKER) 3.8 meq/L 3.5-5.1 (test code = 379) CHLORIDE (BEAKER) 91 meq/L 98-107 L (test code = 382) CO2 (BEAKER) (test 27 meq/L 22-29 code = 355) BLOOD UREA NITROGEN 12 mg/dL 7-21 (BEAKER) (test code = 354) CREATININE (BEAKER) 0.75 mg/dL 0.57-1.25 (test code = 358) GLUCOSE RANDOM 88 mg/dL 70-105 (BEAKER) (test code = 652) CALCIUM (BEAKER) 8.6 mg/dL 8.4-10.2 (test code = 697) EGFR (BEAKER) (test 112 mL/min/1.73 ESTIM ATED GFR IS code = 1092) sq m NOT ACCURATE CREATININE CLEARANCE IN PREDICTING GLOMERULAR FILTRATION RATE . ESTIMATED GFR I S NOT APPLICABLE FOR DIALYSIS PATIEN TS. RAD, CHEST, 1 VIEW, NON [id number] 05:10:00Reason for exam:->sob, tachypneaShould this be performed at the bedside?->YesFINAL REPORT RAD, CHEST, 1 VIEW, NON DEPT INDICATION: sob, tachypnea COMPARISO N: Prior day's exam FINDINGS: Portable frontal view of the chest. IMPRESSION: Support Lines: Stable. Lungs and pleura: Persistent patchy bibasilar heterogeneous airspace opacities, could reflect atelectasis versus pneumonia in the proper clinical setting. Possible small left pleural effusion. No pne umothorax.Heart and mediastinum: Stable contours. Additional findings: None. Signed: Ivanna Carrillo Verified Date/Time: 06/15/2018 05:10:33 Reading Location: [address] Transitional Reading Room POCT-LACTIC ACID, VENOUS 2018-06-15 04:30:00 Test Item Value Reference Range Interpretation Comments POC-LACTIC ACID, 1.1 mmol/L 0.9-1.7 TESTED AT [facility] 67[address] VENOUS (BEAKER) (test [facility] code = 2805) [id number] URINALYSIS W/ REFLEX URINE [id number] 20:03:00 Test Item Value Reference Range Interpretation Comments COLOR (BEAKER) (test code = 470) Light Yellow CLARITY (BEAKER) (test code = Hazy 469) SPECIFIC GRAVITY UA (BEAKER) 1.014 1.001-1.035 (test code = 468) PH UA (BEAKER) (test code = 467) 7.5 5.0-8.0 PROTEIN UA (BEAKER) (test code = Negative Negative 464) GLUCOSE UA (BEAKER) (test code = Negative Negative 365) KETONES UA (BEAKER) (test code = Negative Negative 371) BILIRUBIN UA (BEAKER) (test code Negative Negative = 462) BLOOD UA (BEAKER) (test code = Negative Negative 461) NITRITE UA (BEAKER) (test code = Negative Negative 465) LEUKOCYTE ESTERASE UA (BEAKER) Negative Negative (test code = 466) UROBILINOGEN UA (BEAKER) (test 0.2 mg/dL 0.2-1.0 code = 463) RBC UA (BEAKER) (test code = 0 /HPF 519) WBC UA (BEAKER) (test code = 0 /HPF 520) BACTERIA (BEAKER) (test code = Few 517) MUCUS (BEAKER) (test code = Rare 1574) HYALINE CASTS (BEAKER) (test 3 /LPF code = 514) SOURCE(BEAKER) (test code = 2795) RAD, CHEST, 1 VIEW, NON [id number] 19:10:00Reason for exam:->SUSUPECTED INFECTIONShould this be performed at the bedside?->YesFINAL REPORT CLINICAL INDICATION: Suspected infection Comparison: 06/14/2018 T he cardiomediastinal contours are stable. The lung volumes remain low. Bibasilar opacities, right greater than left, are similar to previous and may reflect atelectasis. Pneumonitis should be excluded clinically. There is no pneumothorax or large pleural effusion. A tracheostomy tube is stable in position. Signed: Mayra Gacria MDReport Verified Date/Time: 06/14/2018 19:10:10 Reading Location: [address] Reading Room CBC W/PLT COUNT & AUTO [id number] 04:36:00 Test Item Value Reference Range Interpretation Comments WHITE BLOOD CELL COUNT (BEAKER) 11.4 K/ L 3.5-10.5 H (test code = 775) RED BLOOD CELL COUNT (BEAKER) 4.37 M/ L 4.63-6.08 L (test code = 761) HEMOGLOBIN (BEAKER) (test code = 14.1 GM/DL 13.7-17.5 410) HEMATOCRIT (BEAKER) (test code = 44.0 % 40.1-51.0 411) MEAN CORPUSCULAR VOLUME (BEAKER) 100.7 fL 79.0-92.2 H (test code = 753) MEAN CORPUSCULAR HEMOGLOBIN 32.3 pg 25.7-32.2 H (BEAKER) (test code = 751) MEAN CORPUSCULAR HEMOGLOBIN CONC 32.0 GM/DL 32.3-36.5 L (BEAKER) (test code = 752) RED CELL DISTRIBUTION WIDTH 14.4 % 11.6-14.4 (BEAKER) (test code = 412) PLATELET COUNT (BEAKER) (test 188 K/CU MM 150-450 code = 756) MEAN PLATELET VOLUME (BEAKER) 10.7 fL 9.4-12.4 (test code = 754) NUCLEATED RED BLOOD CELLS 0 /100 WBC 0-0 (BEAKER) (test code = 413) NEUTROPHILS RELATIVE PERCENT 95 % (BEAKER) (test code = 429) LYMPHOCYTES RELATIVE PERCENT 1 % (BEAKER) (test code = 430) MONOCYTES RELATIVE PERCENT 2 % (BEAKER) (test code = 431) EOSINOPHILS RELATIVE PERCENT 0 % (BEAKER) (test code = 432) BASOPHILS RELATIVE PERCENT 0 % (BEAKER) (test code = 437) NEUTROPHILS ABSOLUTE COUNT 10.81 K/ L 1.78-5.38 H (BEAKER) (test code = 670) LYMPHOCYTES ABSOLUTE COUNT 0.16 K/ L 1.32-3.57 L (BEAKER) (test code = 414) MONOCYTES ABSOLUTE COUNT (BEAKER) 0.26 K/ L 0.30-0.82 L (test code = 415) EOSINOPHILS ABSOLUTE COUNT 0.00 K/ L 0.04-0.54 L (BEAKER) (test code = 416) BASOPHILS ABSOLUTE COUNT (BEAKER) 0.03 K/ L 0.01-0.08 (test code = 417) IMMATURE GRANULOCYTES-RELATIVE 2 % 0-1 H PERCENT (BEAKER) (test code = 2801) RAD, CHEST, 1 VIEW, NON [id number] 04:13:00Reason for exam:->recent pneumothorax, new trachShould this [...] mediastinum: Stable contours. Additional findings: None. Signed: Ivanna Carrillo MDReport Verified Date/Time: 06/14/2018 04:13:50 Reading Location: [address] Transitional Reading Room BLOOD GAS, [id number] 01:01:00 Test Item Value Reference Range Interpretation Comments PH ARTERIAL (BEAKER) (test code = 7.45 7.35-7.45 383) PCO2 ARTERIAL (BEAKER) (test code 41 mmHg 35-45 = 384) PO2 ARTERIAL (BEAKER) (test code = 109 mmHg 80-90 H 385) O2 SATURATION ARTERIAL (BEAKER) 98.2 % 96.0-97.0 H (test code = 386) HCO3 ARTERIAL (BEAKER) (test code 28 mmol/L 21-29 = 388) BASE EXCESS ARTERIAL (BEAKER) 3.4 mmol/L -2.0-3.0 H (test code = 387) PATIENT TEMPERATURE (BEAKER) (test 36.7 C code = 1818) FIO2 (BEAKER) (test code = 1819) 40.0 % POCT-GLUCOSE [id number] 05:32:00 Test Item Value Reference Range Interpretation Comments POC-GLUCOSE METER 92 mg/dL 70-110 TESTED AT [facility] 6720 (BEAKER) (test code = [facility] [id number] 1538) RAD, CHEST, 1 VIEW, NON [id number] 05:03:00Reason for exam:->evaluate for pneumo r/t CTShould [...] mediastinum: Stable contours. Additional findings: None. Signed: Ivanna Carrillo Verified Date/Time: 06/13/2018 05:03:31 Reading Location: [address] Transitional Reading Room APTT 2018-06-13 04:22:00 Test Item Value Reference Range Interpretation Comments PARTIAL THROMBOPLASTIN TIME 27.4 seconds 22.5-36.0 (BEAKER) (test code = 760) PROTHROMBIN [id number] 04:21:00 Test Item Value Reference Range Interpretation Comments PROTIME (BEAKER) (test code = 13.8 seconds 11.7-14.7 759) INR (BEAKER) (test code = 370) 1.1 <=5.9 RECOMMENDED COUMADIN/WARFARIN INR THERAPY RANGESSTANDARD DOSE: 2.0 - 3.0 Includes: PROPHYLAXIS forvenous thrombosis, systemic embolization; TREATMENT for venous thrombosis and/or pulmonary embolus.HIGH RISK: Target INR is 2.5-3.5 for patients with mechanical heart valves.[id number] 04:20:00 Test Item Value Reference Range Interpretation Comments PHOSPHORUS (BEAKER) (test code = 3.1 mg/dL 2.3-4.7 604) [id number] 04:20:00 Test Item Value Reference Range Interpretation Comments MAGNESIUM (BEAKER) (test code = 2.0 mg/dL 1.6-2.6 627) BASIC METABOLIC [id number] 04:20:00 Test Item Value Reference Range Interpretation Comments SODIUM (BEAKER) 140 meq/L 136-145 (test code = 381) POTASSIUM (BEAKER) 3.7 meq/L 3.5-5.1 (test code = 379) CHLORIDE (BEAKER) 101 meq/L 98-107 (test code = 382) CO2 (BEAKER) (test 30 meq/L 22-29 H code = 355) BLOOD UREA NITROGEN 13 mg/dL 7-21 (BEAKER) (test code = 354) CREATININE (BEAKER) 0.74 mg/dL 0.57-1.25 (test code = 358) GLUCOSE RANDOM 97 mg/dL 70-105 (BEAKER) (test code = 652) CALCIUM (BEAKER) 9.2 mg/dL 8.4-10.2 (test code = 697) EGFR (BEAKER) (test 113 mL/min/1.73 ESTIM ATED GFR IS code = 1092) sq m NOT ACCURATE CREATININE CLEARANCE IN PREDICTING GLOMERULAR FILTRATION RATE . ESTIMATED GFR I S NOT APPLICABLE FOR DIALYSIS PATIEN TS. CBC W/PLT COUNT & AUTO [id number] 04:14:00 Test Item Value Reference Range Interpretation Comments WHITE BLOOD CELL COUNT (BEAKER) 11.6 K/ L 3.5-10.5 H (test code = 775) RED BLOOD CELL COUNT (BEAKER) 4.30 M/ L 4.63-6.08 L (test code = 761) HEMOGLOBIN (BEAKER) (test code = 13.9 GM/DL 13.7-17.5 410) HEMATOCRIT (BEAKER) (test code = 43.3 % 40.1-51.0 411) MEAN CORPUSCULAR VOLUME (BEAKER) 100.7 fL 79.0-92.2 H (test code = 753) MEAN CORPUSCULAR HEMOGLOBIN 32.3 pg 25.7-32.2 H (BEAKER) (test code = 751) MEAN CORPUSCULAR HEMOGLOBIN CONC 32.1 GM/DL 32.3-36.5 L (BEAKER) (test code = 752) RED CELL DISTRIBUTION WIDTH 14.1 % 11.6-14.4 (BEAKER) (test code = 412) PLATELET COUNT (BEAKER) (test 182 K/CU MM 150-450 code = 756) MEAN PLATELET VOLUME (BEAKER) 10.7 fL 9.4-12.4 (test code = 754) NUCLEATED RED BLOOD CELLS 0 /100 WBC 0-0 (BEAKER) (test code = 413) NEUTROPHILS RELATIVE PERCENT 89 % (BEAKER) (test code = 429) LYMPHOCYTES RELATIVE PERCENT 3 % (BEAKER) (test code = 430) MONOCYTES RELATIVE PERCENT 6 % (BEAKER) (test code = 431) EOSINOPHILS RELATIVE PERCENT 0 % (BEAKER) (test code = 432) BASOPHILS RELATIVE PERCENT 0 % (BEAKER) (test code = 437) NEUTROPHILS ABSOLUTE COUNT 10.26 K/ L 1.78-5.38 H (BEAKER) (test code = 670) LYMPHOCYTES ABSOLUTE COUNT 0.39 K/ L 1.32-3.57 L (BEAKER) (test code = 414) MONOCYTES ABSOLUTE COUNT (BEAKER) 0.74 K/ L 0.30-0.82 (test code = 415) EOSINOPHILS ABSOLUTE COUNT 0.02 K/ L 0.04-0.54 L (BEAKER) (test code = 416) BASOPHILS ABSOLUTE COUNT (BEAKER) 0.03 K/ L 0.01-0.08 (test code = 417) IMMATURE GRANULOCYTES-RELATIVE 1 % 0-1 PERCENT (BEAKER) (test code = 2801) POCT-GLUCOSE [id number] 00:14:00 Test Item Value Reference Range Interpretation Comments POC-GLUCOSE METER 126 mg/dL 70-110 H TESTED AT [facility] 67[address] (BEAKER) (test code = [place] 1538) [address] RAD, CHEST, 1 VIEW, NON [id number] 12:29:00Reason for exam:->s/p[ L thoracocentesisFINAL REPORT CLINICAL HISTORY: s/p[ L thoracocentesis TECHNIQUE: 1 view of the chest. COMPARISON: 06/12/2018 IMPRESSION: A tracheostomy tube is again seen. There is no pneumothorax. Bibasilar atelectasis is again noted. There is no significant appearing pleural fluid. The cardiomediastinal silhouette is magnified by technique. Signed: Jacqueline Hilliard MDReport Verified Date/Time:06/12/2018 12:29:27 Reading Location: [facility] [id number] Consult Reading Room POCT-GLUCOSE [id number] 12:10:00 Test Item Value Reference Range Interpretation Comments POC-GLUCOSE METER 194 mg/dL 70-110 H TESTED AT [facility] [address] ([facility]) (test code = [place] 1538) [address] CT, CHEST, WITH [id number] 10:26:00Premedicated for contrast allergy. With general anesthesia please.FINAL REPORT INDICATION: Cancer surveillance. Report of laryngeal mass. COMPARISON:Chest radiograph June 12, 2018 TECHNIQUE: Chest CT exam WITH intravenous contrast. The exam was performed according to our department dose-optimization protocol, which includes automated exposurecontrol, adjustments of mA and kV according to patient size. Iterative reconstructions are also sometimes employed. FINDINGS:There is no suspicious pulmonary nodule or mass. [...] or secondary malignancy in the thorax. Signed: Saray Manort Verified Date/Time: 06/12/2018 10:26:26 Reading Location: [facility] Diagnostic Imaging Reading Room - [facility] F1 1120 , SOFT TISSUE NECK, [id number] 09:53:00Premedicated for contrast allergy. With gneral anesthesia please.FINAL REPORT CT, SOFT TISSUE NECK, CONTRAST INDICATION: Cancer Surveillance COMPARISON: None currently available. TECHNIQUE: Noncontrast CT images of the cervical soft tissues. Multiplanar, orthogonal reformatted images were generated. DOSE REDUCTION: Dose modulation, iterativereconstruction, and/or weight-based adjustment of the mA/kV was [...] There is no acute osseous abnormality. Degenerative para nasal sinus thickening is noted. A right mastoid effusion is present. Included portions of the brainbase are unremarkable. IMPRESSION: Evaluation of the laryngeal surface is somewhat limited by edema and the presence of tracheostomy. Tracheostomy position is appropriate. No adenopathy. Correlation preoperative imaging is recommended when/if such imaging is available. Signed: JR Paul Robert [facility] Verified Date/Time: 06/12/2018 09:53:06 Reading Location: [facility] C013V Neuro Reading Room [id number] 06:00:00 Test Item Value Reference Range Interpretation Comments PHOSPHORUS (BEAKER) (test code = 2.9 mg/dL 2.3-4.7 604) [id number] 06:00:00 Test Item Value Reference Range Interpretation Comments MAGNESIUM (BEAKER) (test code = 2.1 mg/dL 1.6-2.6 627) BASIC METABOLIC [id number] 06:00:00 Test Item Value Reference Range Interpretation Comments SODIUM (BEAKER) 139 meq/L 136-145 (test code = 381) POTASSIUM (BEAKER) 3.9 meq/L 3.5-5.1 (test code = 379) CHLORIDE (BEAKER) 104 meq/L 98-107 (test code = 382) CO2 (BEAKER) (test 26 meq/L 22-29 code = 355) BLOOD UREA NITROGEN 13 mg/dL 7-21 (BEAKER) (test code = 354) CREATININE (BEAKER) 0.65 mg/dL 0.57-1.25 (test code = 358) GLUCOSE RANDOM 109 mg/dL 70-105 H (BEAKER) (test code = 652) CALCIUM (BEAKER) 9.5 mg/dL 8.4-10.2 (test code = 697) EGFR (BEAKER) (test 132 mL/min/1.73 ESTIM ATED GFR IS code = 1092) sq m NOT ACCURATE CREATININE CLEARANCE IN PREDICTING GLOMERULAR FILTRATION RATE . ESTIMATED GFR I S NOT APPLICABLE FOR DIALYSIS PATIEN TS. POCT-GLUCOSE [id number] 05:44:00 Test Item Value Reference Range Interpretation Comments POC-GLUCOSE METER 157 mg/dL 70-110 H TESTED AT [facility] 6720 (BEAKER) (test code = [place] 153) [id number] CBC W/PLT COUNT & AUTO [id number] 04:29:00 Test Item Value Reference Range Interpretation Comments WHITE BLOOD CELL COUNT (BEAKER) 17.3 K/ L 3.5-10.5 H (test code = 775) RED BLOOD CELL COUNT (BEAKER) 4.42 M/ L 4.63-6.08 L (test code = 761) HEMOGLOBIN (BEAKER) (test code = 14.4 GM/DL 13.7-17.5 410) HEMATOCRIT (BEAKER) (test code = 43.7 % 40.1-51.0 411) MEAN CORPUSCULAR VOLUME (BEAKER) 98.9 fL 79.0-92.2 H (test code = 753) MEAN CORPUSCULAR HEMOGLOBIN 32.6 pg 25.7-32.2 H (BEAKER) (test code = 751) MEAN CORPUSCULAR HEMOGLOBIN CONC 33.0 GM/DL 32.3-36.5 (BEAKER) (test code = 752) RED CELL DISTRIBUTION WIDTH 14.2 % 11.6-14.4 (BEAKER) (test code = 412) PLATELET COUNT (BEAKER) (test 180 K/CU MM 150-450 code = 756) MEAN PLATELET VOLUME (BEAKER) 10.9 fL 9.4-12.4 (test code = 754) NUCLEATED RED BLOOD CELLS 0 /100 WBC 0-0 (BEAKER) (test code = 413) NEUTROPHILS RELATIVE PERCENT 94 % (BEAKER) (test code = 429) LYMPHOCYTES RELATIVE PERCENT 2 % (BEAKER) (test code = 430) MONOCYTES RELATIVE PERCENT 3 % (BEAKER) (test code = 431) EOSINOPHILS RELATIVE PERCENT 0 % (BEAKER) (test code = 432) BASOPHILS RELATIVE PERCENT 0 % (BEAKER) (test code = 437) NEUTROPHILS ABSOLUTE COUNT 16.28 K/ L 1.78-5.38 H (BEAKER) (test code = 670) LYMPHOCYTES ABSOLUTE COUNT 0.28 K/ L 1.32-3.57 L (BEAKER) (test code = 414) MONOCYTES ABSOLUTE COUNT (BEAKER) 0.55 K/ L 0.30-0.82 (test code = 415) EOSINOPHILS ABSOLUTE COUNT 0.00 K/ L 0.04-0.54 L (BEAKER) (test code = 416) BASOPHILS ABSOLUTE COUNT (BEAKER) 0.02 K/ L 0.01-0.08 (test code = 417) IMMATURE GRANULOCYTES-RELATIVE 1 % 0-1 PERCENT (BEAKER) (test code = 2801) RAD, CHEST, 1 VIEW, NON [id number] 04:26:00Reason for exam:->evaluate for pneumo r/t CTShould this be performed at the bedside?->YesFINAL REPORT CLINICAL INDICATION: Support lines. Comparison: 06/10/2018 The cardiomediastinal contours are stable. The lung volumes remain low. The lateral pulmonary opacities are similar to previous within variation of acquisition technique. There is no pneumothorax. A tracheostomy tube is stable. Signed: Mayra Garcia MDReport Verified Date/Time: 06/12/2018 04:26:44 Reading Location: [address] Reading Room Electronically signed by: MAYRA GARCIA M.D. 06/12/2018 04:26 [id number] 04:02:00 Test Item Value Reference Range Interpretation Comments PARTIAL THROMBOPLASTIN TIME 29.1 seconds 22.5-36.0 ([facility]) (test code = 760) PROTHROMBIN [id number] 04:01:00 Test Item Value Reference Range Interpretation Comments PROTIME ([facility]) (test code = 13.4 seconds 11.7-14.7 759) INR ([facility]) (test code = 370) 1.0 <=5.9 RECOMMENDED COUMADIN/WARFARIN INR THERAPY RANGESSTANDARD DOSE: 2.0 - 3.0 Includes: PROPHYLAXIS forvenous thrombosis, systemic embolization; TREATMENT for venous thrombosis and/or pulmonary embolus.HIGH RISK: Target INR is 2.5-3.5 for patients with mechanical heart valves.POCT-GLUCOSE [id number] 00:10:00 Test Item Value Reference Range Interpretation Comments POC-GLUCOSE METER 225 mg/dL 70-110 H TESTED AT [place] [address] ([facility]) ([facility] 1538) [address] POCT-GLUCOSE [id number] 06:14:00 Test Item Value Reference Range Interpretation Comments POC-GLUCOSE METER 129 mg/dL 70-110 H TESTED AT [place] [address] ([facility]) (test code = [facility] Sara [facility] 1538) [address] TSH/FREE T4 IF [id number] 04:46:00 Test Item Value Reference Range Interpretation Comments THYROID STIMULATING HORMONE 0.87 uIU/mL 0.35-4.94 ([facility]) (test code = 772) CBC W/PLT COUNT & AUTO [id number] 04:30:00 Test Item Value Reference Range Interpretation Comments WHITE BLOOD CELL COUNT ([facility]) 16.2 K/ L 3.5-10.5 H (test code = 775) RED BLOOD CELL COUNT ([facility]) 4.01 M/ L 4.63-6.08 L (test code = 761) HEMOGLOBIN ([facility]) (test code = 12.9 GM/DL 13.7-17.5 L 410) HEMATOCRIT ([facility]) (test code = 41.0 % 40.1-51.0 411) MEAN CORPUSCULAR VOLUME ([facility]) 102.2 fL 79.0-92.2 H (test code = 753) MEAN CORPUSCULAR HEMOGLOBIN 32.2 pg 25.7-32.2 (BEAKER) (test code = 751) MEAN CORPUSCULAR HEMOGLOBIN CONC 31.5 GM/DL 32.3-36.5 L (BEAKER) (test code = 752) RED CELL DISTRIBUTION WIDTH 14.5 % 11.6-14.4 H (BEAKER) (test code = 412) PLATELET COUNT (BEAKER) (test 176 K/CU MM 150-450 code = 756) MEAN PLATELET VOLUME (BEAKER) 10.9 fL 9.4-12.4 (test code = 754) NUCLEATED RED BLOOD CELLS 0 /100 WBC 0-0 (BEAKER) (test code = 413) NEUTROPHILS RELATIVE PERCENT 93 % (BEAKER) (test code = 429) LYMPHOCYTES RELATIVE PERCENT 2 % (BEAKER) (test code = 430) MONOCYTES RELATIVE PERCENT 4 % (BEAKER) (test code = 431) EOSINOPHILS RELATIVE PERCENT 0 % (BEAKER) (test code = 432) BASOPHILS RELATIVE PERCENT 0 % (BEAKER) (test code = 437) NEUTROPHILS ABSOLUTE COUNT 15.09 K/ L 1.78-5.38 H (BEAKER) (test code = 670) LYMPHOCYTES ABSOLUTE COUNT 0.28 K/ L 1.32-3.57 L (BEAKER) (test code = 414) MONOCYTES ABSOLUTE COUNT (BEAKER) 0.60 K/ L 0.30-0.82 (test code = 415) EOSINOPHILS ABSOLUTE COUNT 0.00 K/ L 0.04-0.54 L (BEAKER) (test code = 416) BASOPHILS ABSOLUTE COUNT (BEAKER) 0.02 K/ L 0.01-0.08 (test code = 417) IMMATURE GRANULOCYTES-RELATIVE 1 % 0-1 PERCENT (BEAKER) (test code = 2801) [id number] 04:26:00 Test Item Value Reference Range Interpretation Comments PREALBUMIN (BEAKER) (test code = 25 mg/dL 14-45 586) [id number] 04:24:00 Test Item Value Reference Range Interpretation Comments PHOSPHORUS (BEAKER) (test code = 3.5 mg/dL 2.3-4.7 604) [id number] 04:24:00 Test Item Value Reference Range Interpretation Comments MAGNESIUM (BEAKER) (test code = 2.0 mg/dL 1.6-2.6 627) BASIC METABOLIC [id number] 04:24:00 Test Item Value Reference Range Interpretation Comments SODIUM (BEAKER) 140 meq/L 136-145 (test code = 381) POTASSIUM (BEAKER) 3.9 meq/L 3.5-5.1 (test code = 379) CHLORIDE (BEAKER) 105 meq/L 98-107 (test code = 382) CO2 (BEAKER) (test 26 meq/L 22-29 code = 355) BLOOD UREA NITROGEN 11 mg/dL 7-21 (BEAKER) (test code = 354) CREATININE (BEAKER) 0.67 mg/dL 0.57-1.25 (test code = 358) GLUCOSE RANDOM 129 mg/dL 70-105 H (BEAKER) (test code = 652) CALCIUM (BEAKER) 9.2 mg/dL 8.4-10.2 (test code = 697) EGFR (BEAKER) (test 127 mL/min/1.73 ESTIM ATED GFR IS code = 1092) sq m NOT ACCURATE CREATININE CLEARANCE IN PREDICTING GLOMERULAR FILTRATION RATE . ESTIMATED GFR I S NOT APPLICABLE FOR DIALYSIS PATIEN TS. PROTHROMBIN [id number] 04:19:00 Test Item Value Reference Range Interpretation Comments PROTIME (BEAKER) (test code = 14.5 seconds 11.7-14.7 759) INR (BEAKER) (test code = 370) 1.1 <=5.9 RECOMMENDED COUMADIN/WARFARIN INR THERAPY RANGESSTANDARD DOSE: 2.0 - 3.0 Includes: PROPHYLAXIS forvenous thrombosis, systemic embolization; TREATMENT for venous thrombosis and/or pulmonary embolus.HIGH RISK: Target INR is 2.5-3.5 for patients with mechanical heart valves.[id number] 04:19:00 Test Item Value Reference Range Interpretation Comments PARTIAL THROMBOPLASTIN TIME 29.7 seconds 22.5-36.0 (BEAKER) (test code = 760) POCT-GLUCOSE [id number] 01:04:00 Test Item Value Reference Range Interpretation Comments POC-GLUCOSE METER 128 mg/dL 70-110 H TESTED AT [facility] 6720 (BEAKER) (test code = [place] 1538) [address] POCT-GLUCOSE [id number] 18:19:00 Test Item Value Reference Range Interpretation Comments POC-GLUCOSE METER 93 mg/dL 70-110 TESTED AT [facility] 6720 ([facility]) (test code = [place] [address] 1538) POCT-GLUCOSE [id number] 11:44:00 Test Item Value Reference Range Interpretation Comments POC-GLUCOSE METER 87 mg/dL 70-110 TESTED AT [place] [address] ([facility]) (test code = [facility] Sara [facility] [address]38) POCT-GLUCOSE [id number] 06:13:00 Test Item Value Reference Range Interpretation Comments POC-GLUCOSE METER 158 mg/dL 70-110 H TESTED AT [place] [address] ([facility]) (test code = [facility] 1538) [address] BLOOD GAS, [id number] 04:53:00 Test Item Value Reference Range Interpretation Comments PH VENOUS (BEAKER) (test code = 7.48 7.32-7.42 H 701) PCO2 VENOUS (BEAKER) (test code = 37 mmHg 41-51 L 755) PO2 VENOUS (BEAKER) (test code = 94 mmHg 25-40 H 702) O2 SATURATION VENOUS (BEAKER) 97.7 % 40.0-70.0 H (test code = 703) HCO3 VENOUS (BEAKER) (test code = 27 mmol/L 21-29 705) BASE EXCESS VENOUS (BEAKER) (test 3.7 mmol/L -2.0-3.0 H code = 704) PATIENT TEMPERATURE (BEAKER) (test 37.0 C code = 1818) RAD, CHEST, 1 VIEW, NON [id number] 04:42:00Reason for exam:->s/p tracheostomyShould this be performed [...] mediastinum: Stable contours. Additional findings: None. Signed: Ivanna Carrillo Verified Date/Time: 06/10/2018 04:42:37 Reading Location: [address] Reading Room [id number] 04:29:00 Test Item Value Reference Range Interpretation Comments MAGNESIUM (BEAKER) 2.2 mg/dL 1.6-2.6 Specimen slightly (test code = 627) hemolyzed [id number] 04:29:00 Test Item Value Reference Range Interpretation Comments PHOSPHORUS (BEAKER) 3.7 mg/dL 2.3-4.7 Specimen slightly (test code = 604) hemolyzed BASIC METABOLIC [id number] 04:29:00 Test Item Value Reference Range Interpretation Comments SODIUM (BEAKER) 139 meq/L 136-145 (test code = 381) POTASSIUM (BEAKER) 4.0 meq/L 3.5-5.1 Specimen slightly (test code = 379) hemolyzed CHLORIDE (BEAKER) 105 meq/L 98-107 (test code = 382) CO2 (BEAKER) (test 24 meq/L 22-29 code = 355) BLOOD UREA NITROGEN 11 mg/dL 7-21 (BEAKER) (test code = 354) CREATININE (BEAKER) 0.70 mg/dL 0.57-1.25 Specimen slightly (test code = 358) hemolyzed GLUCOSE RANDOM 159 mg/dL 70-105 H (BEAKER) (test code = 652) CALCIUM (BEAKER) 9.4 mg/dL 8.4-10.2 (test code = 697) EGFR (BEAKER) (test 121 mL/min/1.73 ESTIM ATED GFR IS code = 1092) sq m NOT ACCURATE CREATININE CLEARANCE IN PREDICTING GLOMERULAR FILTRATION RATE . ESTIMATED GFR I S NOT APPLICABLE FOR DIALYSIS PATIEN TS. [id number] 04:18:00 Test Item Value Reference Range Interpretation Comments PARTIAL THROMBOPLASTIN TIME 24.5 seconds 22.5-36.0 (BEAKER) (test code = 760) PROTHROMBIN [id number] 04:17:00 Test Item Value Reference Range Interpretation Comments PROTIME (BEAKER) (test code = 13.7 seconds 11.7-14.7 759) INR (BEAKER) (test code = 370) 1.0 <=5.9 RECOMMENDED COUMADIN/WARFARIN INR THERAPY RANGESSTANDARD DOSE: 2.0 - 3.0 Includes: PROPHYLAXIS forvenous thrombosis, systemic embolization; TREATMENT for venous thrombosis and/or pulmonary embolus.HIGH RISK: Target INR is 2.5-3.5 for patients with mechanical heart valves.CBC W/PLT COUNT & AUTO DIFFERENTIAL 2018-06-10 04:06:00 Test Item Value Reference Range Interpretation Comments WHITE BLOOD CELL COUNT (BEAKER) 17.9 K/ L 3.5-10.5 H (test code = 775) RED BLOOD CELL COUNT (BEAKER) 4.34 M/ L 4.63-6.08 L (test code = 761) HEMOGLOBIN (BEAKER) (test code = 13.7 GM/DL 13.7-17.5 410) HEMATOCRIT (BEAKER) (test code = 42.8 % 40.1-51.0 411) MEAN CORPUSCULAR VOLUME (BEAKER) 98.6 fL 79.0-92.2 H (test code = 753) MEAN CORPUSCULAR HEMOGLOBIN 31.6 pg 25.7-32.2 (BEAKER) (test code = 751) MEAN CORPUSCULAR HEMOGLOBIN CONC 32.0 GM/DL 32.3-36.5 L (BEAKER) (test code = 752) RED CELL DISTRIBUTION WIDTH 14.4 % 11.6-14.4 (BEAKER) (test code = 412) PLATELET COUNT (BEAKER) (test 194 K/CU MM 150-450 code = 756) MEAN PLATELET VOLUME (BEAKER) 10.5 fL 9.4-12.4 (test code = 754) NUCLEATED RED BLOOD CELLS 0 /100 WBC 0-0 (BEAKER) (test code = 413) NEUTROPHILS RELATIVE PERCENT 92 % (BEAKER) (test code = 429) LYMPHOCYTES RELATIVE PERCENT 2 % (BEAKER) (test code = 430) MONOCYTES RELATIVE PERCENT 5 % (BEAKER) (test code = 431) EOSINOPHILS RELATIVE PERCENT 0 % (BEAKER) (test code = 432) BASOPHILS RELATIVE PERCENT 0 % (BEAKER) (test code = 437) NEUTROPHILS ABSOLUTE COUNT 16.35 K/ L 1.78-5.38 H (BEAKER) (test code = 670) LYMPHOCYTES ABSOLUTE COUNT 0.40 K/ L 1.32-3.57 L (BEAKER) (test code = 414) MONOCYTES ABSOLUTE COUNT (BEAKER) 0.86 K/ L 0.30-0.82 H (test code = 415) EOSINOPHILS ABSOLUTE COUNT 0.00 K/ L 0.04-0.54 L (BEAKER) (test code = 416) BASOPHILS ABSOLUTE COUNT (BEAKER) 0.03 K/ L 0.01-0.08 (test code = 417) IMMATURE GRANULOCYTES-RELATIVE 1 % 0-1 PERCENT (BEAKER) (test code = 2801) POCT-GLUCOSE [id number] 01:05:00 Test Item Value Reference Range Interpretation Comments POC-GLUCOSE METER 161 mg/dL 70-110 H TESTED AT [facility] 6720 [facility] (test code = [place] 1538) [address] RAD, CHEST, 1 VIEW, NON [id number] 22:19:00Reason for exam:->Laryngeal massShould this be performed [...] tube remain in place. Signed: Lucy Morales Verified Date/Time: 06/09/2018 22:19:49 Reading Location: [facility] [address] Consult Reading Room , CHEST, 1 VIEW, NON [id number] 20:37:00Reason for exam:->Laryngeal massShould this be performed at [...] subsegmental atelectasis or pneumonia. Signed: Lucy Morales Verified Date/Time: 06/09/2018 20:37:30 Reading Location: [address] Reading Room RAD, CHEST, 1 VIEW, NON [id number] 20:18:00Reason for exam:->Post-opShould this be performed at the bedside?->YesFINAL REPORT RAD, CHEST, 1 VIEW, NON DEPT INDICATION: Post-op COMPARISON: [...] mediastinum: Within normal limits. Additional findings: Osseous str uctures are unremarkable. Signed: Ivanna Carrillo Verified Date/Time: 06/09/2018 20:18:45 Reading Location: [address] Reading Room CBC W/PLT COUNT & AUTO [id number] 19:32:00 Test Item Value Reference Range Interpretation Comments WHITE BLOOD CELL COUNT (BEAKER) 22.9 K/ L 3.5-10.5 H (test code = 775) RED BLOOD CELL COUNT (BEAKER) 4.82 M/ L 4.63-6.08 (test code = 761) HEMOGLOBIN (BEAKER) (test code = 15.5 GM/DL 13.7-17.5 410) HEMATOCRIT (BEAKER) (test code = 48.5 % 40.1-51.0 411) MEAN CORPUSCULAR VOLUME (BEAKER) 100.6 fL 79.0-92.2 H (test code = 753) MEAN CORPUSCULAR HEMOGLOBIN 32.2 pg 25.7-32.2 (BEAKER) (test code = 751) MEAN CORPUSCULAR HEMOGLOBIN CONC 32.0 GM/DL 32.3-36.5 L (BEAKER) (test code = 752) RED CELL DISTRIBUTION WIDTH 14.5 % 11.6-14.4 H (BEAKER) (test code = 412) PLATELET COUNT (BEAKER) (test 201 K/CU MM 150-450 code = 756) MEAN PLATELET VOLUME (BEAKER) 10.1 fL 9.4-12.4 (test code = 754) NUCLEATED RED BLOOD CELLS 0 /100 WBC 0-0 (BEAKER) (test code = 413) (CELLAVISION MANUAL DIFF)[id number] 19:32:00 Test Item Value Reference Range Interpretation Comments NEUTROPHILS - REL 94 % (CELLAVISION)(BEAKER) (test code = 2816) MONOCYTES - REL 4 % (CELLAVISION)(BEAKER) (test code = 2818) BANDS - REL (CELLAVISION)(BEAKER) 1 % 0-10 (test code = 2826) NEUTROPHILS - ABS 21.53 K/ul 1.78-5.38 H (CELLAVISION)(BEAKER) (test code = 2830) MONOCYTES - ABS 0.92 K/uL 0.30-0.82 H (CELLAVISION)(BEAKER) (test code = 2832) BANDS - ABS (CELLAVISION)(BEAKER) 0.23 K/uL 0.00-0.80 (test code = 2840) TOTAL COUNTED (BEAKER) (test code 100 = 1351) RBC MORPHOLOGY (BEAKER) (test code Normal = 762) PLT MORPHOLOGY (BEAKER) (test code Normal = 486) HYPERSEGMENTATION Present (CELLAVISION)(BEAKER) (test code = 3445) ARTIFACT (CELLAVISION)(BEAKER) Present (test code = 3432) PLATELET CONCENTRATION Adequate (CELLAVISION)(BEAKER) (test code = 3438) Received comment: User comments: Slide comments:[id number] 19:25:00 Test Item Value Reference Range Interpretation Comments PHOSPHORUS (BEAKER) (test code = 4.7 mg/dL 2.3-4.7 604) [id number] 19:25:00 Test Item Value Reference Range Interpretation Comments MAGNESIUM (BEAKER) (test code = 2.2 mg/dL 1.6-2.6 627) BASIC METABOLIC [id number] 19:25:00 Test Item Value Reference Range Interpretation Comments SODIUM (BEAKER) 139 meq/L 136-145 (test code = 381) POTASSIUM (BEAKER) 3.9 meq/L 3.5-5.1 (test code = 379) CHLORIDE (BEAKER) 103 meq/L 98-107 (test code = 382) CO2 (BEAKER) (test 27 meq/L 22-29 code = 355) BLOOD UREA NITROGEN 15 mg/dL 7-21 (BEAKER) (test code = 354) CREATININE (BEAKER) 0.81 mg/dL 0.57-1.25 (test code = 358) GLUCOSE RANDOM 139 mg/dL 70-105 H (BEAKER) (test code = 652) CALCIUM (BEAKER) 9.3 mg/dL 8.4-10.2 (test code = 697) EGFR (BEAKER) (test 102 mL/min/1.73 ESTIM ATED GFR IS code = 1092) sq m NOT ACCURATE CREATININE CLEARANCE IN PREDICTING GLOMERULAR FILTRATION RATE . ESTIMATED GFR I S NOT APPLICABLE FOR DIALYSIS PATIEN TS. PROTHROMBIN [id number] 19:18:00 Test Item Value Reference Range Interpretation Comments PROTIME (BEAKER) (test code = 13.0 seconds 11.7-14.7 759) INR (BEAKER) (test code = 370) 1.0 <=5.9 RECOMMENDED COUMADIN/WARFARIN INR THERAPY RANGESSTANDARD DOSE: 2.0 - 3.0 Includes: PROPHYLAXIS forvenous thrombosis, systemic embolization; TREATMENT for venous thrombosis and/or pulmonary embolus.HIGH RISK: Target INR is 2.5-3.5 for patients with mechanical heart valves.[id number] 19:18:00 Test Item Value Reference Range Interpretation Comments PARTIAL THROMBOPLASTIN TIME 24.0 seconds 22.5-36.0 (BEAKER) (test code = 760) [id number] 12:47:00 Test Item Value Reference Range Interpretation Comments HEMOGLOBIN (BEAKER) (test code = 15.7 GM/DL 13.7-17.5 410) PLATELET [id number] 12:47:00 Test Item Value Reference Range Interpretation Comments PLATELET COUNT (BEAKER) (test 203 K/CU MM 150-450 code = 756)
[2020-08-30 13:30] LABS: Absolute Lymphocytes (CBC) 0.8 K/uL (0.7-4.9); Basophils % 0.3 % (0-1.3); Lymphocytes % 4.7 % (15.3-44.8); MPV 8.2 fL (7.6-11.3); RBC Red Blood Cell Count 4.88 M/uL (4.33-5.43)
[2020-08-30 13:34] LABS: ALT/SGPT 43 U/L (12-78); AST/SGOT 20 U/L (15-37); Albumin 3.3 g/dL (3.4-5.0); Alkaline Phosphatase 205 U/L (45-117); BUN Blood Urea Nitrogen 10 mg/dL (7-18); Bicarbonate 31 mmol/L (21-32); Bilirubin Direct 0.3 mg/dL (0-0.2); Bilirubin Total 1.3 mg/dL (0.2-1.0); Glucose Level 90 mg/dL (74-106); Lipase 833 U/L (73-393); Potassium 3.9 mmol/L (3.5-5.1); Protein, Total 7.9 g/dL (6.4-8.2); Sodium Level 136 mmol/L (136-145)
[2020-08-30] MEDS ORDERED: MORPHINE 4 MG/ML SYR ONE ×2 (14:01→19:14)
[2020-08-30] MEDS ORDERED: ONDANSETRON 4 MG/2 ML VIAL ONE ×2 (14:01→19:14)
--- NOTE | 2020-08-30 14:01 | RAD REPORT ---
EXAM DESCRIPTION: CT - Abdomen Pelvis Wo Contrast - 08/30/2020 1:35 pm CLINICAL HISTORY: abdominal pain, vomiting, diarrhea COMPARISON: Abdomen Pelvis Wo Contrast dated 08/07/2018; Abdomen Pelvis Wo Contrast dated 10/05/2017 TECHNIQUE: Axial [address] imaging of the abdomen and pelvis was performed without IV contrast. No IV contrast was given because of allergy, abnormal renal function, patient refusal or physician re quest. No oral contrast administered. All CT scans are performed using dose optimization technique as appropriate and may include automated exposure control or mA/KV adjustment according to patient size. FINDINGS: No suspicious findings in the lung bases. Liver normal size. Fatty infiltration is present in the liver. There is an 8 x 5 centimeter area in t he medial right lobe showing a slightly higher attenuation. This is believed to be spared common norm al parenchyma rather than a liver mass. No splenic abnormality seen. . Cholecystectomy clips are pres ent. No biliary tree dilatation. No hydronephrosis or suspicious renal mass. No significant adrenal finding. Isodense renal masses an d pyelonephritis cannot be excluded in the absence of IV contrast. Contracted urinary bladder shows n o suspicious findings. Prostate gland and seminal vesicles within normal range. No gastric dilatation or gastric wall thickening seen. There is wall thickening and edema of the duod enal C-loop. Stranding is seen in the adjacent fat. There is minimal stranding at the head of the ac creas as well. Distal duodenum and remainder of the small bowel unremarkable. No acute colon finding. Tortuous and redundant sigmoid colon present with mild to moderate diverticulosis. No diverticulitis findings. Colon mass is not suspected. No free air, pneumatosis or free fluid. No other inflammatory stranding. No mass or bulky lymphaden opathy. Small fat filled inguinal hernias are present. No suspicious bony findings. IMPRESSION: Wall thickening and edema are seen in the duodenal C-loop and in the head of the pancrea s. There is a trace amount of stranding at the head of the pancreas and duodenal C-loop. Findings could be duodenitis with some secondary pancreatic head involvement or pancreatic head pancr eatitis with secondary duodenal involvement. Underlying mass lesion of the duodenum or pancreas unlikely but full assessment is limited in the abs ence of contrast material. Fatty infiltration of the liver is present. The 8 x 5 centimeter area of greater density in the media l right lobe liver is believed to be spared parenchyma rather than mass lesion. Full assessment is limited is the absence of IV contrast.
--- NOTE | 2020-08-30 14:31 | EDPHYS ---
Physician Documentation [facility] Name: Akin Pugh Age: 50 yrs Sex: Male : 1970 Arrival Date: 08/30/2020 Time: 09:27 Bed 23 Private MD: ALEJANDRA Physician Ren Bruner HPI: 08/30 11:55 This 50 yrs old Male presents to ER via Ambulatory with complaints of jmm Nausea/Vomiting/Diarrhea. 11:55 The patient presents to the emergency department with nausea, vomiting, diarrhea, jmm abdominal pain. Onset: The symptoms/episode began/occurred gradually, 2 week(s) ago. Possible causes: unknown. The symptoms are aggravated by nothing. The symptoms are alleviated by nothing. Associated signs and symptoms: Pertinent positives: abdominal pain. The patient has not experienced similar symptoms in the past. Historical: - Allergies: 10:01 Ampicillin; aa5 10:01 Iodinated Contrast Media - IV Dye; aa5 10:01 Levaquin; aa5 10:01 Iodine; aa5 - PMHx: 10:01 Asthma; COPD; THROAT CA; aa5 - Immunization history:: Adult Immunizations unknown. - Social history:: Smoking status: Patient reports the use of cigarette tobacco products, denies chronic smoking, but will smoke occasionally. ROS: 11:55 Constitutional: Positive for body aches, chills. jmm 11:55 Abdomen/GI: Positive for abdominal pain, vomiting, diarrhea. 11:55 All other systems are negative. Exam: 11:55 Head/Face: atraumatic. Eyes: EOMI, no conjunctival erythema appreciated ENT: Moist jmm Mucus Membranes Neck: Trachea midline, Supple Chest/axilla: Normal chest wall appearance and motion. Cardiovascular: Regular rate and rhythm. No edema appreciated Respiratory: Normal respirations, no respiratory distress appreciated 11:55 Back: Normal ROM Skin: General appearance color normal MS/ Extremity: Moves all extremities, no obvious deformities appreciated, no edema noted to the lower extremities Neuro: Awake and alert, normal gait Psych: Behavior is normal, Mood is normal, Patient is cooperative and pleasant 11:55 Constitutional: The patient appears alert, awake, uncomfortable. 11:55 Abdomen/GI: Inspection: abdomen appears normal, Bowel sounds: normal, Palpation: soft, moderate abdominal tenderness, in the umbilical area, right upper quadrant and left upper quadrant. Vital Signs: 09:58 BP 116 / 95; Pulse 112; Resp 18 S; Temp 97.2(TE); Pulse Ox 98% on R/A; Weight 83.91 kg aa5 (R); Height 5 ft. 11 in. (180.34 cm) (R); 12:20 BP 135 / 80; Pulse 94; Resp 17; Pulse Ox 97% ; Pain 7/10; ap3 14:44 BP 143 / 104; Pulse 93; Pulse Ox 96% on R/A; ap3 15:51 BP 134 / 94; Pulse 87; Resp 18; Pulse Ox 98% on R/A; ap3 09:58 Body Mass Index 25.80 (83.91 kg, 180.34 cm) aa5 MDM: 11:55 Patient medically screened. kishan 14:29 Data reviewed: vital signs, nurses notes. Counseling: I had a detailed discussion with holly the patient and/or guardian regarding: the historical points, exam findings, and any diagnostic results supporting the discharge/admit diagnosis, lab results, radiology results, the need for further work-up and treatment in the hospital. ED course: I discussed the patient with ZULAY Mello whom accepted the patient to Dr. Huitron service. . 08/30 12:44 Order name: Basic Metabolic Panel; Complete Time: 13:43 [facility] 08/30 12:44 Order name: CBC with Diff [facility] 08/30 12:44 Order name: Hepatic Function; Complete Time: 13:43 [facility] 08/30 12:44 Order name: Lipase; Complete Time: 13:43 [facility] 08/30 15:07 Order name: Manual Differential [facility] 08/30 16:31 Order name: Blood Culture [facility] 08/30 12:44 Order name: IV Saline Lock; Complete Time: 12:45 [facility] 08/30 13:12 Order name: CT Abd/Pelvis - Without Contrast; Complete Time: 14:06 [facility] 08/30 19:32 Order name: COVID-19 : Document "Date of Symptom Onset" if Symptomatic. [facility] 08/30 21:20 Order name: CORONAVIRUS [facility] 08/30 22:13 Order name: SARS-COV-2 RT PCR [facility] 08/30 12:44 Order name: Labs collected and sent; Complete Time: 12:47 [facility] Administered Medications: 13:45 Drug: morphine 4 mg Route: IVP; Site: left antecubital; ap3 14:47 Follow up: Response: No adverse reaction; Nausea is decreased ap3 13:45 Drug: Zofran (Ondansetron) 4 mg Route: IVP; Site: left antecubital; ap3 14:47 Follow up: Response: No adverse reaction; Nausea is decreased ap3 14:47 Drug: Lactated Ringers Solution 1000 ml Route: IV; Rate: 1000 bolus; Site: left ap3 antecubital; 23:21 Follow up: Response: No adverse reaction; IV Status: Completed infusion ap3 Disposition: 08/31 07:24 Co-signature as Attending Physician, Ren Bruner MD I agree with the assessment and kishan plan of care. Disposition: 08/30/20 14:31 Hospitalization ordered by Sara Vilchis for Observation. Preliminary diagnosis is Acute Pancreatitis. - Bed requested for Telemetry/MedSurg (observation). - Status is Observation. ap3 - Condition is Stable. - Problem is new. - Symptoms have improved. Signatures: Dispatcher [employer] EDRen Pereira MD MD cha Mickail, Joel, PA PA [facility] Sage Gonzalezic em1 Jody Villegas RN RN aa5 Lima Dahl, JEAN RN Rose Betts RN RN ap3 Corrections: (The following items were deleted from the chart) 08/30 14:38 14:31 Hospitalization Ordered by Sara Vilchis MD for Observation. Preliminary em1 diagnosis is Acute Pancreatitis. Bed requested for Telemetry/MedSurg (observation). Status is Observation. Condition is Stable. Problem is new. Symptoms have improved. [facility] 22:30 14:38 08/30/2020 14:31 Hospitalization Ordered by Sara Vilchis MD for Observation. cg Preliminary diagnosis is Acute Pancreatitis. Bed requested for [facility] ER HOLD. Status is Observation. Condition is Stable. Problem is new. Symptoms have improved. em1 08/31 00:08 06 22:30 08/30/2020 14:31 Hospitalization Ordered by Sara Vilchis MD for ap3 Observation. Preliminary diagnosis is Acute Pancreatitis. Bed requested for Telemetry/MedSurg (observation). Status is Observation. Condition is Stable. Problem is new. Symptoms have improved. cg
--- NOTE | 2020-08-30 14:31 | ER ---
Nurse's Notes [facility] Name: Akin Pugh Age: 50 yrs Sex: Male : 1970 Arrival Date: 08/30/2020 Time: 09:27 Bed 23 Private MD: Diagnosis: Acute Pancreatitis Presentation: 08/30 09:58 Chief complaint: Patient states: nausea/vomiting/diarrhea. Pt states "I was seen at [address] in [place] on Saturday and Saturday and sent home". 09:58 Coronavirus screen: diarrhea, nausea, vomiting. Ebola Screen: Patient negative for [facility] fever greater than or equal to 101.5 degrees Fahrenheit, and additional compatible Ebola Virus Disease symptoms. Initial Sepsis Screen: Does the patient meet any 2 criteria? HR > 90 bpm. Does the patient have a suspected source of infection? No. Patient's initial sepsis screen is negative. Risk Assessment: Do you want to hurt yourself or someone else? Patient reports no desire to harm self or others. Onset of symptoms was July 2020. 09:58 Acuity: PAO 3 aa5 09:58 Method Of Arrival: Ambulatory [facility] Historical: - Allergies: 10:01 Ampicillin; aa5 10:01 Iodinated Contrast Media - IV Dye; aa5 10:01 Levaquin; aa5 10:01 Iodine; aa5 - PMHx: 10:01 Asthma; COPD; THROAT CA; aa5 - Immunization history:: Adult Immunizations unknown. - Social history:: Smoking status: Patient reports the use of cigarette tobacco products, denies chronic smoking, but will smoke occasionally. Screenin:19 Abuse screen: Denies threats or abuse. Nutritional screening: Has had N/V for 3 or more ap3 days. Tuberculosis screening: No symptoms or risk factors identified. Fall Risk None identified. Assessment: 12:14 General: Appears in no apparent distress. uncomfortable, Behavior is calm, cooperative, ap3 appropriate for age. Pain: Complains of pain in abdomen Pain does not radiate. Pain began a few days ago. Neuro: Level of Consciousness is awake, alert, obeys commands, Oriented to person, place, time, situation. Cardiovascular: Denies chest pain. Respiratory: Reports shortness of breath Airway via trache patient reports having trache since 2018 Respiratory effort is even, unlabored, Respiratory pattern is regular, symmetrical, Breath sounds with crackles bilaterally. Breath sounds with wheezes bilaterally. GI: Pt is actively vomiting clear fluid, Reports nausea, since SaturdayAugust 26. : No signs and/or symptoms were reported regarding the genitourinary system. EENT: Throat patient has trache. reports having it since 2018 for throat cancer. patients last treatment for cancer was in 2019. . Derm: Skin is pink, warm \\T\\ dry. Musculoskeletal:. 14:56 Reassessment: Patient and/or family updated on plan of care and expected duration. Pain ap3 level reassessed. Patient is alert, oriented x 3, equal unlabored respirations, skin warm/dry/pink. Patient states symptoms have improved. 15:57 General: patient not yet in [employer]. Will Continue [employer] charting at this time.. ap3 22:45 General: report called to receiving nurse on 4th floor.. ap3 Vital Signs: 09:58 BP 116 / 95; Pulse 112; Resp 18 S; Temp 97.2(TE); Pulse Ox 98% on R/A; Weight 83.91 kg aa5 (R); Height 5 ft. 11 in. (180.34 cm) (R); 12:20 BP 135 / 80; Pulse 94; Resp 17; Pulse Ox 97% ; Pain 7/10; ap3 14:44 BP 143 / 104; Pulse 93; Pulse Ox 96% on R/A; ap3 15:51 BP 134 / 94; Pulse 87; Resp 18; Pulse Ox 98% on R/A; ap3 09:58 Body Mass Index 25.80 (83.91 kg, 180.34 cm) aa5 ED Course: 09:27 Patient arrived in ED. ds1 09:59 Arm band placed on. aa5 10:00 Triage completed. aa5 11:54 Rose Betts, JEAN is Primary Nurse. ap3 11:55 Ren Bruner MD is Attending Physician. kishan 12:19 Patient has correct armband on for positive identification. Bed in low position. Call ap3 light in reach. Pulse ox on. NIBP on. Door closed. Noise minimized. Warm blanket given. 12:35 Inserted saline lock: 20 gauge in left antecubital area, using aseptic technique. Blood dh4 collected. 12:43 Clif Patiño PA is PHCP. holly 13:35 CT Abd/Pelvis - Without Contrast In Process Unspecified. EDMS 14:31 Sara Vilchis MD is Hospitalizing Provider. [facility] 15:13 Admitting physician to see patient. ap3 21:27 Primary Nurse role handed off by Rose Betts, JEAN mw2 22:32 Rose Betts, JEAN is Primary Nurse. ap3 22:46 No provider procedures requiring assistance completed. Patient admitted, IV remains in ap3 place. Administered Medications: 13:45 Drug: morphine 4 mg Route: IVP; Site: left antecubital; ap3 14:47 Follow up: Response: No adverse reaction; Nausea is decreased ap3 13:45 Drug: Zofran (Ondansetron) 4 mg Route: IVP; Site: left antecubital; ap3 14:47 Follow up: Response: No adverse reaction; Nausea is decreased ap3 14:47 Drug: Lactated Ringers Solution 1000 ml Route: IV; Rate: 1000 bolus; Site: left ap3 antecubital; 23:21 Follow up: Response: No adverse reaction; IV Status: Completed infusion ap3 Outcome: 14:31 Decision to Hospitalize by Provider. jmm 22:46 Admitted to Med/surg accompanied by tech, via wheelchair, with chart. ap3 22:46 Condition: good 22:46 Instructed on the need for admit. 0602 00:08 Patient left the ED. ap3 Signatures: Dispatcher [employer] EDMS Ren Bruner MD MD cha Mickail, Joel, PA PA Kathi Lloyd ds1 Jody Villegas RN RN aa5 Rose Betts RN RN ap3 Josemanuel Nye mw2 [facility]
[2020-08-30] MEDS ORDERED: Ringers Lactate 1,000 ML IV ONE (15:00)
[2020-08-30 15:07] LABS: Blood Morphology Comment NOTED (NOT SEEN); Macrocytosis 1+; Platelet Estimate ADEQ
[2020-08-30] MEDS ORDERED: KETOROLAC 30 MG/ML INJ IV PRN (16:29)
--- NOTE | 2020-08-30 16:37 | P.HP ---
Certification for Inpatient With expected LOS: <2 Midnights Patient will require the following post-hospital care: None Practitioner: I am a practitioner with admitting privileges, knowledge of patient current condition, hospital course, and medical plan of care. Services: Services provided to patient in accordance with Admission requirements found in Title 42 Section 412.3 of the Code of Federal Regulations <Jennifer Singh - Last Filed: 08/30/20 19:54> Patient History Date of Service: 08/30/20 Reason for admission: N\V\D, Abdominla pain History of Present Illness: Patient is a 50-year-old male with a past medical history significant for asthma, COPD, depression, throat cancer, chronic pain syndrome who presents with complaint of abdominal pain that has been ongoing for the past 2 weeks. Patient reported that abdominal pain is located in the epigastric area as well as his left quadrants. Patient rated pain as 10/10 in severity and described pain as throbbing in quality. Patient reports associated signs and symptoms of nausea, vomiting and diarrhea. Patient denies any other signs and symptoms. Symptoms are aggravated or relieved by nothing. Patient decided to present to the hospital due to worsening symptoms. - Past Medical/Surgical History Diabetic: No -: Asthma -: Depression -: Throat cancer status post complete laryngectomy/reconstruction 06/2018 -: Recurrent postop infection -: Chronic pain -: Former tobacco use -: Surgical hypothyroidism -: Tracheostomy -: Appendectomy -: Complete laryngectomy with reconstruction -: knee surgery bilateral knees -: Thyroidectomy Psychosocial/ Personal History: Patient is . He has 3 children. - Family History Father -: Heart disease, Diabetes Notes: agent orange: immobile Mother -: Cancer Notes: breast ca - Social History Smoking Status: Former smoker Alcohol use: Yes CD- Drugs: No Caffeine use: Yes Place of Residence: Home <AleydadaEmily goodwinosmin Goodwin - Last Filed: 08/30/20 19:54> Date of Service: 08/30/20 <Sara Vilchis - Last Filed: 09/01/20 09:02> Allergies levofloxacin [From Levaquin] Allergy (Severe, Verified 04/06/19 22:53) Itching/Hives/Rash ampicillin Allergy (Verified 04/06/19 22:53) Itching/Hives/Rash iodine Allergy (Verified 04/06/19 22:53) Hives/Rash Home Medications: Escitalopram [Lexapro*] 20 mg PO DAILY 05/27/18 Levothyroxine Sodium [Levoxyl] 137 mcg PO Q48H 06/26/18 Levothyroxine Sodium [Levoxyl] 125 mcg PO Q48H 08/31/20 Lipase/Protease/Amylase [Creon Dr 12,000 Units Capsule] 1 tab PO TID 08/31/20 Nicotine [Nicotine Patch] 21 mg TD DAILY 08/31/20 Review of Systems General: Unremarkable Eyes: Unremarkable ENT: Unremarkable Respiratory: Unremarkable Cardiovascular: Unremarkable Gastrointestinal: Nausea, Vomiting, Abdominal Pain, Diarrhea Genitourinary: Unremarkable Musculoskeletal: Unremarkable Integumentary: Unremarkable Neurological: Unremarkable Lymphatics: Unremarkable <Jennifer Singh - Last Filed: 08/30/20 19:54> 10-point ROS is otherwise unremarkable <Sara Vilchis - Last Filed: 09/01/20 09:02> Physical Examination - Physical Exam General: Alert, In no apparent distress, Oriented x3 HEENT: Atraumatic, PERRLA, Mucous membr. moist/pink, EOMI, Sclerae nonicteric Neck: Supple, 2+ carotid pulse no bruit, No LAD, Without JVD or thyroid abnormality Respiratory: Clear to auscultation bilaterally, Normal air movement Cardiovascular: No edema, Regular rate/rhythm, Normal S1 S2 Capillary refill: <2 Seconds Gastrointestinal: Normal bowel sounds, Tenderness Musculoskeletal: No clubbing, No tenderness Integumentary: No rashes Neurological: Normal gait, Normal speech, Normal strength at 5/5 x4 extr, Normal tone, Normal affect Lymphatics: No axilla or inguinal lymphadenopathy External genitalia: Deferred Rectal: Deferred - Studies Laboratory Data (last 24 hrs) 08/30/20 12:52: WBC 17.20 H, Hgb 18.1 H, Hct 54.0 H, Plt Count 393 08/30/20 12:52: Sodium 136, Potassium 3.9, BUN 10, Creatinine 0.83, Glucose 90, Total Bilirubin 1.3 H, AST 20, ALT 43, Alkaline Phosphatase 205 H, Lipase 833 H <Jennifer Singh - Last Filed: 08/30/20 19:54> Assessment and Plan - Plan --Acute pancreatitis. Will keep patient NPO. Continue IV hydration. Will reassess lipase in a.m. --Acute pain\chronic pain syndrome. Will manage pain with current pain medication regimen. --History of throat cancer. Status post complete laryngectomy/reconstruction 06/2018. Continue supportive care. --Asthma\ COPD. Stable. Neb treatment with albuterol p.r.n. --Depression. Current home medication. --Hypothyroidism. Continue Synthriod --Diarrhea. Stool studies pending to rule out any infectious process. Enteric precautions. Continue IV hydration. --DVT prophylaxis with Lovenox subQ Discharge Plan: Home Plan to discharge in: 48 Hours - Advance Directives Does patient have a Living Will: No Does patient have a Durable POA for Healthcare: Yes - Code Status/Comfort Care Code Status Assessed: Yes Code Status: Full Code Critical Care: No <Jennifer Singh - Last Filed: 08/30/20 19:54> Date of Service: 08/30/20 Patient clinically doing well. Agree with plan of care as mentioned above. <Sara Vilchis - Last Filed: 09/01/20 09:02>
[2020-08-30] MEDS: D5 0.9 NS 1,000 ML IV SCH (17:00)
[2020-08-30] MEDS ORDERED: ACETAMINOPHEN 650MG/RECT SUPP PR PRN (17:04)
[2020-08-30] MEDS: MORPHINE 4 MG/ML SYR IV PRN (18:57)
[2020-08-30] MEDS: ONDANSETRON 4 MG/2 ML VIAL IV PRN (18:57)
[2020-08-30 19:11] VITALS: BMI 25.7
[2020-08-30] MEDS ORDERED: D5 0.9 NS 1,000 ML IV ONE (21:49)
[2020-08-31] MEDS: MORPHINE 4 MG/ML SYR IV PRN ×6 (00:11→20:22)
[2020-08-31] MEDS: ALBUTEROL 2.5 MG/3 ML NEB SOL NEB PRN ×3 (00:35→13:35)
[2020-08-31] MEDS ORDERED: DIPHENHYDRAMINE 50 MG/ML VIAL IV ONE (02:27)
[2020-08-31] MEDS: ONDANSETRON 4 MG/2 ML VIAL IV PRN ×3 (02:54→20:21)
[2020-08-31 04:13] LABS: BUN Blood Urea Nitrogen 10 mg/dL (7-18); Bicarbonate 33 mmol/L (21-32); Glucose Level 92 mg/dL (74-106); Lipase 847 U/L (73-393); Sodium Level 136 mmol/L (136-145)
[2020-08-31 04:17] LABS: Absolute Lymphocytes (CBC) 0.9 K/uL (0.7-4.9); Basophils % 0.8 % (0-1.3); Hematocrit 47.1 % (39.6-49.0); Lymphocytes % 6.6 % (15.3-44.8); MPV 8.2 fL (7.6-11.3); RBC Red Blood Cell Count 4.24 M/uL (4.33-5.43)
[2020-08-31] MEDS: KCL 20 MEQ/100 mL IVPB 20 MEQ/100 ML BAG IV SCH ×2 (08:11→11:10)
[2020-08-31] MEDS: ENOXAPARIN 40 MG/0.4 ML SQ SCH (08:13)
[2020-08-31] MEDS ORDERED: LEVOTHYROXINE SOD 0.1 MG TAB PO STA (09:16)
[2020-08-31] MEDS ORDERED: LEVOTHYROXINE SOD 0.125 MG TAB PO ONE (09:30)
[2020-08-31] MEDS: NICOTINE 21 MG/PAT TD SCH (09:51)
[2020-08-31] MEDS: ESCITALOPRAM 20 MG TAB PO SCH (09:51)
[2020-08-31] MEDS: D5 0.9 NS 1,000 ML IV SCH ×2 (09:52→22:23)
[2020-08-31] MEDS: LIPASE/PROTEASE/AMYLASE CAP PO SCH ×2 (13:17→20:25)
[2020-08-31] MEDS ORDERED: MELATONIN 5 MG TABLET PO PRN (21:39)
[2020-09-01] MEDS: MORPHINE 4 MG/ML SYR IV PRN ×4 (00:11→20:55)
[2020-09-01] MEDS: LEVOTHYROXINE SOD 0.112 MG TAB PO SCH (05:40)
[2020-09-01] MEDS: LEVOTHYROXINE SOD 0.025 MG TAB PO SCH (05:40)
[2020-09-01 06:11] LABS: Absolute Lymphocytes (CBC) 0.8 K/uL (0.7-4.9); Hematocrit 46.3 % (39.6-49.0); Lymphocytes % 7.1 % (15.3-44.8); MPV 8.1 fL (7.6-11.3); RBC Red Blood Cell Count 4.16 M/uL (4.33-5.43)
[2020-09-01 06:55] LABS: ALT/SGPT 34 U/L (12-78); AST/SGOT 22 U/L (15-37); Albumin 2.7 g/dL (3.4-5.0); Alkaline Phosphatase 155 U/L (45-117); BUN Blood Urea Nitrogen 3 mg/dL (7-18); Bicarbonate 31 mmol/L (21-32); Bilirubin Total 0.5 mg/dL (0.2-1.0); Folic Acid, (Folate) 3.9 ng/mL (3.1-17.5); Glucose Level 98 mg/dL (74-106); Magnesium 2.1 mg/dL (1.8-2.4); NT PRO-BNP 51 pg/mL (<125); Phosphorus 3.6 mg/dL (2.5-4.9); Potassium 4.2 mmol/L (3.5-5.1); Protein, Total 6.1 g/dL (6.4-8.2); Sodium Level 140 mmol/L (136-145)
[2020-09-01] MEDS: ESCITALOPRAM 20 MG TAB PO SCH (08:10)
[2020-09-01] MEDS: NICOTINE 21 MG/PAT TD SCH (08:10)
[2020-09-01] MEDS: LIPASE/PROTEASE/AMYLASE CAP PO SCH ×3 (08:10→20:55)
[2020-09-01] MEDS: ENOXAPARIN 40 MG/0.4 ML SQ SCH (08:11)
[2020-09-01] MEDS: ALBUTEROL 2.5 MG/3 ML NEB SOL NEB PRN ×2 (08:35→19:46)
--- NOTE | 2020-09-01 09:08 | P.PN ---
Subjective Date of Service: 08/31/20 Subjective: No new changes, No C/O voiced, Improving Review of Systems 10-point ROS is otherwise unremarkable Physical Examination - Vital Signs Temperature: 97 F Blood Pressure: 141/90 Pulse: 76 Respirations: 18 Pulse Ox (%): 100 - Physical Exam General: Alert, In no apparent distress, Oriented x3 Respiratory: Clear to auscultation bilaterally, Normal air movement Cardiovascular: Regular rate/rhythm, Normal S1 S2, No murmurs Gastrointestinal: Normal bowel sounds, Soft and benign, Non-distended, No tenderness Musculoskeletal: No clubbing, No swelling, No tenderness Neurological: Sensation intact, Cranial nerves 3-12 intact - Studies Medications List Reviewed: Yes Assessment & Plan - Problems (Diagnosis) (1) Pancreatitis Current Visit: Yes Status: Acute (2) Tracheostomy dependent Current Visit: No Status: Acute (3) COPD (chronic obstructive pulmonary disease) Onset Date: 10/14/17 Current Visit: No Status: Chronic Qualifiers: COPD type: chronic bronchitis Chronic bronchitis type: simple Qualified Code(s): J41.0 - Simple chronic bronchitis (4) History of depression Onset Date: 10/14/17 Current Visit: No Status: Chronic (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 Continue with IV hydration 2. Start clear liquid diet 3. Continue with pain control 4. GI consultation; 5. Serial H&H, and we will monitor CBC, BMP, LFTs and lipase along with electrolytes. 6. GI and DVT prophylaxis Discharge Plan: Home Plan to discharge in: Greater than 2 days - Advance Directives Does patient have a Living Will: No Does patient have a Durable POA for Healthcare: Yes - Code Status/Comfort Care Code Status: Full Code Critical Care: No Time Spent Managing PTS Care (In Minutes): 30
[2020-09-01 09:51] LABS: Lipase 396 U/L (73-393)
[2020-09-01] MEDS: D5 0.9 NS 1,000 ML IV SCH (11:09)
[2020-09-01] MEDS: ONDANSETRON 4 MG/2 ML VIAL IV PRN (19:36)
[2020-09-02] MEDS: MORPHINE 4 MG/ML SYR IV PRN ×4 (05:10→21:03)
[2020-09-02] MEDS: ONDANSETRON 4 MG/2 ML VIAL IV PRN ×2 (05:10→11:59)
[2020-09-02 06:21] LABS: Basophils % 0.8 % (0-1.3); Hematocrit 47.3 % (39.6-49.0); Lymphocytes % 8.4 % (15.3-44.8); MPV 8.2 fL (7.6-11.3); RBC Red Blood Cell Count 4.34 M/uL (4.33-5.43)
[2020-09-02] MEDS ORDERED: LEVOTHYROXINE SOD 0.125 MG TAB PO SCH (06:30)
[2020-09-02 06:43] LABS: ALT/SGPT 35 U/L (12-78); AST/SGOT 22 U/L (15-37); Albumin 3.1 g/dL (3.4-5.0); Alkaline Phosphatase 172 U/L (45-117); BUN Blood Urea Nitrogen 3 mg/dL (7-18); Bicarbonate 31 mmol/L (21-32); Bilirubin Total 0.5 mg/dL (0.2-1.0); Glucose Level 97 mg/dL (74-106); Lipase 392 U/L (73-393); Potassium 4.3 mmol/L (3.5-5.1); Protein, Total 7.1 g/dL (6.4-8.2); Sodium Level 136 mmol/L (136-145)
[2020-09-02 07:36] LABS: Platelet Estimate ADEQ
[2020-09-02 07:37] LABS: Blood Morphology Comment NOTED (NOT SEEN); Macrocytosis 1+
[2020-09-02] MEDS: NICOTINE 21 MG/PAT TD SCH (08:33)
[2020-09-02] MEDS: ENOXAPARIN 40 MG/0.4 ML SQ SCH (08:33)
[2020-09-02] MEDS: ESCITALOPRAM 20 MG TAB PO SCH (08:33)
[2020-09-02] MEDS: LIPASE/PROTEASE/AMYLASE CAP PO SCH ×3 (08:38→21:02)
[2020-09-02] MEDS ORDERED: ACETAMINOPHEN 325 MG TABLET PO PRN (14:22)
[2020-09-02] MEDS: ALBUTEROL 2.5 MG/3 ML NEB SOL NEB PRN (17:32)
[2020-09-03] MEDS: MORPHINE 4 MG/ML SYR IV PRN ×2 (03:08→09:11)
[2020-09-03] MEDS: LEVOTHYROXINE SOD 0.112 MG TAB PO SCH (05:32)
[2020-09-03] MEDS: LEVOTHYROXINE SOD 0.025 MG TAB PO SCH (05:32)
[2020-09-03] MEDS: ESCITALOPRAM 20 MG TAB PO SCH (08:55)
[2020-09-03] MEDS: NICOTINE 21 MG/PAT TD SCH (08:55)
[2020-09-03] MEDS: LIPASE/PROTEASE/AMYLASE CAP PO SCH (08:56)
[2020-09-03] MEDS: ENOXAPARIN 40 MG/0.4 ML SQ SCH (08:57)
[2020-09-03 09:03] VITALS: O2SAT 95
[2020-09-03 09:52] VITALS: BP 128/90; TEMP 97
--- NOTE | 2020-09-12 17:25 | P.PN ---
Date of Service: 09/01/20 Subjective Patient is clinically improved with no new complaints. Plan to advance diet as tolerated Review of Systems 10-point ROS is otherwise unremarkable Physical Examination - Vital Signs Reviewed - Physical Exam General: Alert, In no apparent distress, Oriented x3 Respiratory: Clear to auscultation bilaterally, Normal air movement Cardiovascular: Regular rate/rhythm, Normal S1 S2, No murmurs Gastrointestinal: Normal bowel sounds, Soft and benign, Non-distended, No tenderness Musculoskeletal: No clubbing, No swelling, No tenderness Neurological: Sensation intact, Cranial nerves 3-12 intact Assessment & Plan - Problems (Diagnosis) (1) Pancreatitis Current Visit: Yes Status: Acute (2) Tracheostomy dependent Current Visit: No Status: Acute (3) COPD (chronic obstructive pulmonary disease) Onset Date: 10/14/17 Current Visit: No Status: Chronic Qualifiers: COPD type: chronic bronchitis Chronic bronchitis type: simple Qualified Code(s): J41.0 - Simple chronic bronchitis (4) History of depression Onset Date: 10/14/17 Current Visit: No Status: Chronic (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 Continue with IV hydration 2. Start clear liquid diet and plan to advance as tolerated 3. Continue with pain control 4. GI consultation appreciated 5. Serial H&H, and we will monitor CBC, BMP, LFTs and lipase along with electrolytes. 6. GI and DVT prophylaxis
--- NOTE | 2020-09-12 17:26 | P.PN ---
Date of Service: 09/02/20 Subjective Patient continues to improve. Plan to discharge patient home in a.m. if clinically symptoms are improving. Review of Systems 10-point ROS is otherwise unremarkable Physical Examination - Vital Signs Reviewed - Physical Exam General: Alert, In no apparent distress, Oriented x3 Respiratory: Clear to auscultation bilaterally, Normal air movement Cardiovascular: Regular rate/rhythm, Normal S1 S2, No murmurs Gastrointestinal: Normal bowel sounds, Soft and benign, Non-distended, No tenderness Musculoskeletal: No clubbing, No swelling, No tenderness Neurological: Sensation intact, Cranial nerves 3-12 intact Assessment & Plan - Problems (Diagnosis) (1) Pancreatitis Current Visit: Yes Status: Acute (2) Tracheostomy dependent Current Visit: No Status: Acute (3) COPD (chronic obstructive pulmonary disease) Onset Date: 10/14/17 Current Visit: No Status: Chronic Qualifiers: COPD type: chronic bronchitis Chronic bronchitis type: simple Qualified Code(s): J41.0 - Simple chronic bronchitis (4) History of depression Onset Date: 10/14/17 Current Visit: No Status: Chronic (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 Continue with IV hydration 2. Continue with diet as tolerated 3. Continue with pain control 4. GI consultation appreciated 5. Continue monitoring lipase levels 6. GI and DVT prophylaxis
--- NOTE | 2020-09-12 17:30 | P.DS ---
Discharge Date: 09/03/20 Disposition: ROUTINE DISCHARGE Discharge Condition: GOOD Reason for Admission: N\V\D, Abdominla pain - Problems (1) Pancreatitis Status: Acute (2) Tracheostomy dependent Status: Acute (3) COPD (chronic obstructive pulmonary disease) Onset Date: 10/14/17 Status: Chronic Qualifiers: COPD type: chronic bronchitis Chronic bronchitis type: simple Qualified Code(s): J41.0 - Simple chronic bronchitis (4) History of depression Onset Date: 10/14/17 Status: Chronic (5) Laryngeal neoplasm Onset Date: 10/14/17 Status: Chronic Brief History of Present Illness: Patient is a 50-year-old male with a past medical history significant for asthma, COPD, depression, throat cancer, chronic pain syndrome who presents with complaint of abdominal pain that has been ongoing for the past 2 weeks. Patient reported that abdominal pain is located in the epigastric area as well as his left quadrants. Patient rated pain as 10/10 in severity and described pain as throbbing in quality. Patient reports associated signs and symptoms of nausea, vomiting and diarrhea. Patient denies any other signs and symptoms. Symptoms are aggravated or relieved by nothing. Patient decided to present to the hospital due to worsening symptoms. Hospital Course: Patient has done well during hospital stay. Patient clinical symptoms are improving. Patient tolerating diet. At this time patient is clinically stable for discharge with outpatient follow-up. Patient is advised to refrain from drinking alcohol. Vital Signs/Physical Exam: Temp Pulse Resp BP Pulse Ox 97.0 F 75 18 128/90 93 09/03/20 08:00 09/03/20 08:00 09/03/20 09:32 09/03/20 08:00 09/03/20 09:32 General: Alert, In no apparent distress, Oriented x3 Laboratory Data at Discharge: WBC 11.60 K/uL (4.3-10.9) H 09/02/20 05:48 Hgb 16.2 g/dL (13.6-17.9) 09/02/20 05:48 Hct 47.3 % (39.6-49.0) 09/02/20 05:48 Plt Count 336 K/uL (152-406) D 09/02/20 05:48 Sodium 136 mmol/L (136-145) 09/02/20 05:48 Potassium 4.3 mmol/L (3.5-5.1) 09/02/20 05:48 BUN 3 mg/dL (7-18) L 09/02/20 05:48 Creatinine 0.63 mg/dL (0.55-1.3) 09/02/20 05:48 Glucose 97 mg/dL (74-106) 09/02/20 05:48 Phosphorus 3.6 mg/dL (2.5-4.9) 09/01/20 05:31 Magnesium 2.1 mg/dL (1.8-2.4) 09/01/20 05:31 Total Bilirubin 0.5 mg/dL (0.2-1.0) 09/02/20 05:48 AST 22 U/L (15-37) 09/02/20 05:48 ALT 35 U/L (12-78) 09/02/20 05:48 Alkaline Phosphatase 172 U/L (45-117) H 09/02/20 05:48 Lipase 392 U/L (73-393) 09/02/20 05:48 Home Medications: Escitalopram [Lexapro*] 20 mg PO DAILY 05/27/18 Levothyroxine Sodium [Levoxyl] 137 mcg PO Q48H 06/26/18 Levothyroxine Sodium [Levoxyl] 125 mcg PO Q48H 08/31/20 Lipase/Protease/Amylase [[place] 12,000 Units Capsule] 1 tab PO TID 08/31/20 Nicotine [Nicotine Patch] 21 mg TD DAILY 08/31/20 Hydrocodone 10/APAP 325 [[place] 10/325] 1 tab PO Q12H PRN #30 tab 09/02/20 New Medications: Hydrocodone 10/APAP 325 [[place] 10/325] 1 tab PO Q12H PRN #30 tab PRN Reason: Pain Physician Discharge Instructions: PROBLEM: Pancreatitis GOAL: Clear understanding of disease process E-scripts sent to [facility]. INSTRUCTIONS: - Ok to discontinue IV and discharge home. - Follow up with your primary care provider in 1-2 weeks. - Follow up with Gastroenterolgy in 1-2 weeks. - Return to the ER if your symptoms worsen. - Call or text Dr. Vilchis at if you have any questions regarding your hospital stay. - Please call the 4th floor at if you have any medication or nursing questions. Diet: Heart healthy Activity: Fall precautions IMMUNIZATION Influenza Vaccine Indicated: Influenza Vaccine Given: Date Given: Pneumonia Vaccine Indicated: No Pneumonia Vaccine Given: Date Given: Follow up with a Inside Sales Account Executive of your choice: ANKIT INMAN, [address] [phone] KAREN INMAN, [address] [id number] Diet: AHA Activity: Fall precautions Followup: Mandeep Perez MD [Primary Care Provider] - 1-2 Weeks (Follow up in office in 1-2 weeks. Call to schedule an appointment.) Time spent managing pt's care (in minutes): 50
== END 2020-09-03 12:30 | disposition home or self-care (01) | DRG 440 ==
LOC: ER 09:25 → ERHOLD 16:27 → 4TH 22:46
PROVIDERS: ADMIT Hospitalist; ATTEND Hospitalist
DX: K85.90 Acute pancreatitis without necrosis or infection, unspecified (principal); F17.210 Nicotine dependence, cigarettes, uncomplicated; F32.9 Major depressive disorder, single episode, unspecified; E03.9 Hypothyroidism, unspecified; G89.4 Chronic pain syndrome; C32.9 Malignant neoplasm of larynx, unspecified; J41.0 Simple chronic bronchitis; R19.7 Diarrhea, unspecified; Z88.8 Allergy status to other drugs, medicaments and biological substances; Z88.1 Allergy status to other antibiotic agents; Z91.041 Radiographic dye allergy status; Z90.49 Acquired absence of other specified parts of digestive tract; Z79.890 Hormone replacement therapy; Z79.899 Other long term (current) drug therapy; Z93.0 Tracheostomy status; Z20.822 Contact with and (suspected) exposure to COVID-19
CPT/HCPCS: 36415; 74176; 80048; 80053; 80076; 82607; 82746; 83540; 83690; 83735; 83880; 84100; 84132; 84145; 85025; 87040; 94640; 96361; 96374; 96375; 99285; J1200; J1650; J2405; J3480; J7042; J7120; U0003

== ENCOUNTER 2020-09-09 22:07 | Inpatient (IN) | payer MEDICAID ==
[2020-09-09] MEDS ORDERED: ONDANSETRON 4 MG (ODT) TAB ONE (23:16)
[2020-09-09 23:50] LABS: Absolute Lymphocytes (CBC) 1.1 K/uL (0.7-4.9); Lymphocytes % 8.4 % (15.3-44.8); MPV 8.8 fL (7.6-11.3); RBC Red Blood Cell Count 3.96 M/uL (4.33-5.43)
[2020-09-10 00:04] LABS: ALT/SGPT 21 U/L (12-78); AST/SGOT 15 U/L (15-37); Albumin 2.6 g/dL (3.4-5.0); Alkaline Phosphatase 104 U/L (45-117); BUN Blood Urea Nitrogen 4 mg/dL (7-18); Bicarbonate 25 mmol/L (21-32); Bilirubin Direct 0.1 mg/dL (0-0.2); Bilirubin Total 0.3 mg/dL (0.2-1.0); Glucose Level 100 mg/dL (74-106); Lipase 694 U/L (73-393); Potassium 3.2 mmol/L (3.5-5.1); Protein, Total 6.2 g/dL (6.4-8.2); Sodium Level 146 mmol/L (136-145)
[2020-09-10 00:44] LABS: Blood Morphology Comment NOTED (NOT SEEN); Macrocytosis 1+; Platelet Estimate ADEQ; Platelets, Giant SEEN
[2020-09-10] MEDS ORDERED: MORPHINE 4 MG/ML SYR ONE ×2 (01:13→03:52)
[2020-09-10] MEDS ORDERED: NA CHLORIDE 0.9% 1,000 ML ONE (01:14)
[2020-09-10] MEDS ORDERED: FAMOTIDINE 20 MG/2 ML VIAL IV ONE (01:14)
[2020-09-10] MEDS ORDERED: ONDANSETRON 4 MG/2 ML VIAL ONE ×2 (01:14→01:58)
[2020-09-10] MEDS ORDERED: DIPHENHYDRAMINE 50 MG/ML VIAL ONE (01:58)
[2020-09-10] MEDS ORDERED: HYDROCORTISONE SUC 100 MG INJ ONE (01:58)
[2020-09-10] MEDS ORDERED: METHYLPREDNISOLONE 40 MG INJ ONE (01:58)
[2020-09-10] MEDS ORDERED: D5W 1,000 ML IV ONE (01:58)
--- NOTE | 2020-09-10 03:47 | EDPHYS ---
Physician Documentation [facility] Name: Akin Pugh Age: 50 yrs Sex: Male : 1970 Arrival Date: 09/09/2020 Time: 22:10 Bed 7 Private MD: ED Physician Rivera Berman HPI: 09/10 01:20 This 50 yrs old Male presents to ER via Ambulatory with complaints of mh7 Abdominal Pain - pancreatitis, Nausea/Vomiting/Diarrhea, Shortness Of Breath. 01:20 The patient presents with abdominal pain in the epigastric area. Onset: The mh7 symptoms/episode began/occurred 4 day(s) ago. The symptoms do not radiate. Associated signs and symptoms: Pertinent positives: nausea, vomiting, and diarrhea, fever, Pertinent negatives: blood in stools, chest pain, constipation, dysuria, headache, hematuria, palpitations, shortness of breath, testicular pain, vomiting blood. The symptoms are described as intermittent, vague, waxing/waning. Modifying factors: The symptoms are alleviated by nothing, the symptoms are aggravated by nothing. Severity of pain: At its worst the pain was moderate 2 day(s) ago, in the emergency department the pain is unchanged. Historical: - Allergies: 09/09 22:51 Ampicillin; em 22:51 Iodinated Contrast Media - IV Dye; em 22:51 Iodine; em 22:51 Levaquin; em - PMHx: 22:51 Asthma; COPD; THROAT CA; em - PSHx: 22:51 Appendectomy; Cholecystectomy; esophagus sx; em - Immunization history:: Adult Immunizations up to date, Client reports receiving the 1st dose of the Covid vaccine, J\T\J. - Social history:: Smoking status: Patient denies any tobacco usage or history of. ROS: 09/10 01:20 Eyes: Negative for injury, pain, redness, and discharge, ENT: Negative for injury, mh7 pain, and discharge, Neck: Negative for injury, pain, and swelling, Cardiovascular: Negative for chest pain, palpitations, and edema, Respiratory: Negative for shortness of breath, cough, wheezing, and pleuritic chest pain, Back: Negative for injury and pain, : Negative for injury, bleeding, discharge, and swelling, MS/Extremity: Negative for injury and deformity, Skin: Negative for injury, rash, and discoloration, Neuro: Negative for headache, weakness, numbness, tingling, and seizure, Psych: Negative for depression, anxiety, suicide ideation, homicidal ideation, and hallucinations, Allergy/Immunology: Negative for hives, rash, and allergies, Endocrine: Negative for neck swelling, polydipsia, polyuria, polyphagia, and marked weight changes, Hematologic/Lymphatic: Negative for swollen nodes, abnormal bleeding, and unusual bruising. Exam: 01:20 Constitutional: This is a well developed, well nourished patient who is awake, alert, mh7 and in no acute distress. Head/Face: Normocephalic, atraumatic. Eyes: Pupils equal round and reactive to light, extra-ocular motions intact. Lids and lashes normal. Conjunctiva and sclera are non-icteric and not injected. Cornea within normal limits. Periorbital areas with no swelling, redness, or edema. Chest/axilla: Normal chest wall appearance and motion. Nontender with no deformity. No lesions are appreciated. Cardiovascular: Regular rate and rhythm with a normal S1 and S2. No gallops, murmurs, or rubs. Normal PMI, no JVD. No pulse deficits. 01:20 Back: No spinal tenderness. No costovertebral tenderness. Full range of motion. Skin: Warm, dry with normal turgor. Normal color with no rashes, no lesions, and no evidence of cellulitis. MS/ Extremity: Pulses equal, no cyanosis. Neurovascular intact. Full, normal range of motion. Neuro: Awake and alert, GCS 15, oriented to person, place, time, and situation. Cranial nerves II-XII grossly intact. Motor strength 5/5 in all extremities. Sensory grossly intact. Cerebellar exam normal. Normal gait. Psych: Awake, alert, with orientation to person, place and time. Behavior, mood, and affect are within normal limits. 01:20 Respiratory: the patient does not display signs of respiratory distress, Respirations: prolonged exhalation, that is mild, Breath sounds: rhonchi, that are mild, are scattered, Respiratory rate: 18 01:20 Abdomen/GI: Inspection: abdomen appears normal, Bowel sounds: normal, in all quadrants, Palpation: moderate abdominal tenderness, in the epigastric area, mass, is not appreciated, rebound tenderness, is not appreciated, voluntary guarding, is not appreciated, involuntary guarding, is not appreciated, no appreciated organomegaly, Rectal exam: the exam is deferred, because of patient request, Indicators: McBurney's point is not tender, Minor's sign is negative, Rovsing's sign is negative, Obturator sign is negative, Psoas sign is negative, Liver: no appreciated palpable abnormalities, Hernia: not appreciated. Vital Signs: 09/09 22:48 BP 156 / 108; Pulse 92; Resp 18; Temp 97.7; Pulse Ox 98% on R/A; Weight 83.91 kg; em Height 5 ft. 8 in. (172.72 cm); Pain 01/08; 09/10 00:30 BP 179 / 102; Pulse 80; Resp 16; Pulse Ox 98% ; rr5 01:30 BP 177 / 106; Pulse 78; Resp 19; Pulse Ox 99% ; rr5 02:15 BP 161 / 99; Pulse 79; Resp 18; Pulse Ox 97% ; rr5 03:10 BP 155 / 95; Pulse 90; Resp 17; Pulse Ox 98% ; rr5 03:54 BP 148 / 100; Pulse 80; Resp 16; Pulse Ox 99% ; rr5 04:59 BP 146 / 98; Pulse 84; Resp 17; Pulse Ox 99% ; rr5 09/09 22:48 Body Mass Index 28.13 (83.91 kg, 172.72 cm) em MDM: 03:45 Differential diagnosis: bowel obstruction, diverticulitis, gastritis, gastroesophageal mh7 reflux disease, non-specific abd pain, pancreatitis, Peptic Ulcer Disease, urinary tract infection. Data reviewed: vital signs, nurses notes, old medical records, lab test result(s), CBC, electrolytes, urinalysis, EKG, radiologic studies, CT scan. Data interpreted: Pulse oximetry: on room air is 97 %. Interpretation: normal. Counseling: I had a detailed discussion with the patient and/or guardian regarding: the historical points, exam findings, and any diagnostic results supporting the discharge/admit diagnosis, the presence of at least one elevated blood pressure reading (>120/80) during this emergency department visit, lab results, radiology results, the need for further work-up and treatment in the hospital. Response to treatment: the patient's symptoms have mildly improved after treatment. 03:47 Patient medically screened. [facility] 06/11 23:25 Order name: Basic Metabolic Panel; Complete Time: 01:18 ea 09/09 23:25 Order name: CBC with Diff; Complete Time: 03:20 ea 09/09 23:25 Order name: Hepatic Function; Complete Time: 03:20 ea 09/09 23:25 Order name: Lipase; Complete Time: 00:59 ea 09/09 23:55 Order name: Manual Differential; Complete Time: 03:20 EDMS 09/10 01:32 Order name: Lipid Profile la1 09/10 01:33 Order name: CT Abd/Pelvis - IV Contrast Only la1 09/10 03:38 Order name: Guiac rr5 09/10 03:49 Order name: Procalcitonin la1 09/10 03:49 Order name: Procalcitonin EDOH 09/09 23:25 Order name: IV Saline Lock; Complete Time: 23:31 ea 09/09 23:25 Order name: Labs collected and sent; Complete Time: 23:31 ea Administered Medications: 09/09 22:56 Drug: Ondansetron 4 mg Route: PO; em 23:30 Follow up: Response: No adverse reaction; Vomiting unchanged rr5 09/10 00:55 Drug: Zofran (Ondansetron) 4 mg Route: IVP; Site: left forearm; rr5 02:03 Follow up: Response: No adverse reaction rr5 00:55 Drug: Pepcid (famotidine) 20 mg Route: IVP; Site: left forearm; rr5 02:03 Follow up: Response: No adverse reaction rr5 00:55 Drug: NS 0.9% 1000 ml Route: IV; Rate: 1 bolus; Site: left forearm; rr5 02:03 Follow up: Response: No adverse reaction; IV Status: Completed infusion; IV Intake: rr5 1000ml 00:59 Drug: morphine 4 mg {Note: rass 0.} Route: IVP; Site: left forearm; rr5 02:03 Follow up: Response: No adverse reaction; RASS: Alert and Calm (0) rr5 01:55 Drug: Benadryl (diphenhydrAMINE) 50 mg Route: IVP; Site: left forearm; rr5 02:50 Follow up: Response: No adverse reaction rr5 01:55 Drug: SOLU-Medrol (methylPrednisoLONE) 60 mg Route: IVP; Site: left forearm; rr5 02:50 Follow up: Response: No adverse reaction rr5 01:57 Drug: Zofran (Ondansetron) 4 mg Route: IVP; Site: left forearm; rr5 03:51 Follow up: Response: No adverse reaction rr5 02:01 Drug: D5W 1000 ml Route: IV; Rate: 100 ml/hr; Site: left forearm; rr5 05:00 Follow up: Response: No adverse reaction; IV Status: Infusion continued upon admission; rr5 IV Intake: 200ml 03:36 Drug: morphine 4 mg {Note: rass0.} Route: IVP; Site: left forearm; rr5 04:40 Follow up: Response: No adverse reaction; RASS: Alert and Calm (0) rr5 03:51 Drug: ProTONIX (pantoprazole) 40 mg Route: IVP; Site: left forearm; rr5 05:00 Follow up: Response: No adverse reaction rr5 Disposition: 09/10/20 03:47 Hospitalization ordered by Bala Anderson for Inpatient Admission. Preliminary diagnosis are Pancreatitis, Vomiting. - Bed requested for Telemetry/MedSurg (Inpatient). - Status is Inpatient Admission. rr5 - Condition is Stable. - Problem is an acute exacerbation. - Symptoms have improved. Signatures: Dispatcher [employer] EDMS Vickey Paulino, RN Anthony South, COPPER MINER BLASTING-C [employer] BLASTING-Cla1 Lima Dahl, RN RN Anjelica Rangel RN Bala Hernandez ea, RN RN rr5 Rivera Berman MD MD mh7 Corrections: (The following items were deleted from the chart) 04:40 03:47 Hospitalization Ordered by Bala Anderson MD for Inpatient Admission. Preliminary cg diagnosis is Pancreatitis; Vomiting. Bed requested for Telemetry/MedSurg (Inpatient). Status is Inpatient Admission. Condition is Stable. Problem is an acute exacerbation. Symptoms have improved. mh7 05:00 04:40 09/10/2020 03:47 Hospitalization Ordered by Bala Anderson MD for Inpatient rr5 Admission. Preliminary diagnosis is Pancreatitis; Vomiting. Bed requested for Telemetry/MedSurg (Inpatient). Status is Inpatient Admission. Condition is Stable. Problem is an acute exacerbation. Symptoms have improved. cg
--- NOTE | 2020-09-10 03:47 | ER ---
Nurse's Notes [facility] Name: Akin Pugh Age: 50 yrs Sex: Male : 1970 Arrival Date: 09/09/2020 Time: 22:10 Bed 7 Private MD: Diagnosis: Pancreatitis;Vomiting Presentation: 09/09 22:48 Chief complaint: Patient states: N/V/D and abdominal pain that started 3-4 days ago, em was admitted to the hospital for pancreatitis 1 week ago, also reports fever. Coronavirus screen: Client denies travel out of the [place] in the last 14 days. Ebola Screen: Patient negative for fever greater than or equal to 101.5 degrees Fahrenheit, and additional compatible Ebola Virus Disease symptoms Patient denies exposure to infectious person. Patient denies travel to an Ebola-affected area in the 21 days before illness onset. No symptoms or risks identified at this time. Initial Sepsis Screen: Does the patient meet any 2 criteria? HR > 90 bpm. No. Patient's initial sepsis screen is negative. Does the patient have a suspected source of infection? No. Patient's initial sepsis screen is negative. Risk Assessment: Do you want to hurt yourself or someone else? Patient reports no desire to harm self or others. Onset of symptoms was September 09, 2020. 22:48 Method Of Arrival: Ambulatory em 22:48 Acuity: PAO 3 em Triage Assessment: 22:51 General: Appears in no apparent distress. uncomfortable, Behavior is calm, cooperative, em appropriate for age. Pain: Complains of pain in abdomen. Neuro: Level of Consciousness is awake, alert, obeys commands, Oriented to person, place, time, situation, Appropriate for age. Cardiovascular: Capillary refill < 3 seconds Patient's skin is warm and dry. Respiratory: Airway is patent Respiratory effort is even, unlabored, Respiratory pattern is regular, symmetrical, Trach noted. GI: Abdomen is flat, Pt is actively vomiting undigested food. Derm: Skin is intact, is healthy with good turgor, Skin is pink, warm \T\ dry. Musculoskeletal: Capillary refill < 3 seconds, Range of motion: intact in all extremities. Historical: - Allergies: 22:51 Ampicillin; em 22:51 Iodinated Contrast Media - IV Dye; em 22:51 Iodine; em 22:51 Levaquin; em - PMHx: 22:51 Asthma; COPD; THROAT CA; em - PSHx: 22:51 Appendectomy; Cholecystectomy; esophagus sx; em - Immunization history:: Adult Immunizations up to date, Client reports receiving the 1st dose of the Covid vaccine, J\T\J. - Social history:: Smoking status: Patient denies any tobacco usage or history of. Screenin:32 Abuse screen: Denies threats or abuse. Denies injuries from another. Nutritional rr5 screening: No deficits noted. Tuberculosis screening: No symptoms or risk factors identified. Fall Risk IV access (20 points). Total Rivera Fall Scale indicates No Risk (0-24 pts). Assessment: 23:31 General: Appears in no apparent distress. uncomfortable, Behavior is calm, cooperative, rr5 appropriate for age, Reports fever for. Pain: Complains of pain in abdomen Pain currently is 8 out of 10 on a pain scale. Quality of pain is described as aching, Pain began gradually, Is intermittent. Neuro: Level of Consciousness is awake, alert, obeys commands, Oriented to person, place, time. Cardiovascular: Capillary refill < 3 seconds Patient's skin is warm and dry. Respiratory: Airway is patent Respiratory effort is even, unlabored, Respiratory pattern is regular, symmetrical, tracheostomy noted. GI: Abdomen is round non-distended, Abdomen is tender to palpation Reports lower abdominal pain, upper abdominal pain, diarrhea, nausea, vomiting. : No signs and/or symptoms were reported regarding the genitourinary system. EENT: No signs and/or symptoms were reported regarding the EENT system. Derm: Skin is intact, is healthy with good turgor, Skin temperature is warm. Musculoskeletal: Circulation, motion, and sensation intact. Capillary refill < 3 seconds. 12 00:30 Reassessment: Patient appears in no apparent distress at this time. Patient and/or rr5 family updated on plan of care and expected duration. Pain level reassessed. Patient is alert, oriented x 3, equal unlabored respirations, skin warm/dry/pink. complaints of N/V and abdominal pain. 01:20 Reassessment: Patient appears in no apparent distress at this time. Patient is alert, rr5 oriented x 3, equal unlabored respirations, skin warm/dry/pink. hospitalist at bedside examining the patient. 02:10 Reassessment: Patient appears in no apparent distress at this time. Patient is alert, rr5 oriented x 3, equal unlabored respirations, skin warm/dry/pink. went to CT assisted by CT staff. 03:06 Reassessment: Patient and/or family updated on plan of care and expected duration. Pain ea level reassessed. Patient is alert, oriented x 3, equal unlabored respirations, skin warm/dry/pink. 03:54 Reassessment: Patient appears in no apparent distress at this time. patient has his rr5 covid vaccine card he received J\T\J (one dose). Vital Signs: 09/09 22:48 BP 156 / 108; Pulse 92; Resp 18; Temp 97.7; Pulse Ox 98% on R/A; Weight 83.91 kg; em Height 5 ft. 8 in. (172.72 cm); Pain 01/08; 09/10 00:30 BP 179 / 102; Pulse 80; Resp 16; Pulse Ox 98% ; rr5 01:30 BP 177 / 106; Pulse 78; Resp 19; Pulse Ox 99% ; rr5 02:15 BP 161 / 99; Pulse 79; Resp 18; Pulse Ox 97% ; rr5 03:10 BP 155 / 95; Pulse 90; Resp 17; Pulse Ox 98% ; rr5 03:54 BP 148 / 100; Pulse 80; Resp 16; Pulse Ox 99% ; rr5 04:59 BP 146 / 98; Pulse 84; Resp 17; Pulse Ox 99% ; rr5 09/09 22:48 Body Mass Index 28.13 (83.91 kg, 172.72 cm) em ED Course: 09/09 22:10 Patient arrived in ED. as 22:49 Triage completed. em 22:53 Arm band placed on. em 23:19 Bala Palomo RN is Primary Nurse. rr5 23:31 Inserted saline lock: 20 gauge in left forearm, using aseptic technique. Blood rr5 collected. 23:32 Patient has correct armband on for positive identification. Bed in low position. Call rr5 light in reach. Pulse ox on. NIBP on. 23:52 Rivera Berman MD is Attending Physician. [facility] 09/10 02:36 CT Abd/Pelvis - IV Contrast Only In Process Unspecified. EDMS 03:46 Bala Anderson MD is Hospitalizing Provider. [facility] 04:59 No provider procedures requiring assistance completed. Patient admitted, IV remains in rr5 place. intact, No redness/swelling at site. Administered Medications: 09/09 22:56 Drug: Ondansetron 4 mg Route: PO; em 23:30 Follow up: Response: No adverse reaction; Vomiting unchanged rr5 09/10 00:55 Drug: Zofran (Ondansetron) 4 mg Route: IVP; Site: left forearm; rr5 02:03 Follow up: Response: No adverse reaction rr5 00:55 Drug: Pepcid (famotidine) 20 mg Route: IVP; Site: left forearm; rr5 02:03 Follow up: Response: No adverse reaction rr5 00:55 Drug: NS 0.9% 1000 ml Route: IV; Rate: 1 bolus; Site: left forearm; rr5 02:03 Follow up: Response: No adverse reaction; IV Status: Completed infusion; IV Intake: rr5 1000ml 00:59 Drug: morphine 4 mg {Note: rass 0.} Route: IVP; Site: left forearm; rr5 02:03 Follow up: Response: No adverse reaction; RASS: Alert and Calm (0) rr5 01:55 Drug: Benadryl (diphenhydrAMINE) 50 mg Route: IVP; Site: left forearm; rr5 02:50 Follow up: Response: No adverse reaction rr5 01:55 Drug: SOLU-Medrol (methylPrednisoLONE) 60 mg Route: IVP; Site: left forearm; rr5 02:50 Follow up: Response: No adverse reaction rr5 01:57 Drug: Zofran (Ondansetron) 4 mg Route: IVP; Site: left forearm; rr5 03:51 Follow up: Response: No adverse reaction rr5 02:01 Drug: D5W 1000 ml Route: IV; Rate: 100 ml/hr; Site: left forearm; rr5 05:00 Follow up: Response: No adverse reaction; IV Status: Infusion continued upon admission; rr5 IV Intake: 200ml 03:36 Drug: morphine 4 mg {Note: rass0.} Route: IVP; Site: left forearm; rr5 04:40 Follow up: Response: No adverse reaction; RASS: Alert and Calm (0) rr5 03:51 Drug: ProTONIX (pantoprazole) 40 mg Route: IVP; Site: left forearm; rr5 05:00 Follow up: Response: No adverse reaction rr5 Intake: 02:03 IV: 1000ml; Total: 1000ml. rr5 05:00 IV: 200ml; Total: 1200ml. rr5 Outcome: 03:47 Decision to Hospitalize by Provider. 7 04:59 Admitted to Med/surg accompanied by tech, via wheelchair, room 224, with chart, Report rr5 called to lizzy 04:59 Condition: stable 04:59 Instructed on the need for admit. 05:00 Patient left the ED. rr5 Signatures: Dispatcher [employer] Vickey Moise, RN RN Darling Valles Elena, RN RN ea Roque, Raymond, RN RN rr5 Rivera Berman MD MD 7 Corrections: (The following items were deleted from the chart) 02:18 06/11 23:31 Respiratory: Airway is patent Respiratory effort is even, unlabored, rr5 Respiratory pattern is regular, symmetrical, rr5
[2020-09-10] MEDS ORDERED: PANTOPRAZOLE 40 MG INJ ONE ×2 (04:08→04:11)
--- NOTE | 2020-09-10 04:08 | P.HP ---
Certification for Inpatient Patient admitted to: Inpatient With expected LOS: >2 Midnights Patient will require the following post-hospital care: None Practitioner: I am a practitioner with admitting privileges, knowledge of patient current condition, hospital course, and medical plan of care. Services: Services provided to patient in accordance with Admission requirements found in Title 42 Section 412.3 of the Code of Federal Regulations <Anthony Franklin - Last Filed: 09/10/20 04:02> Patient History Date of Service: 09/10/20 Reason for admission: Acute pancreatitis History of Present Illness: 50-year-old male with history of throat cancer status post total laryngectomy and reconstruction, COPD presents emergency department for epigastric pain. Patient was recently admitted for acute pancreatitis in stay in the hospital for a day and was discharged. Patient reports pain is ongoing has been going on over the course of the last few weeks. Patient also reports nausea, vomiting, diarrhea. Patient does report that there has been some mucus in his stool and has been dark on occasion. Patient evaluated in the emergency department, labs significant for lipase 694 hemoglobin 14.2 hematocrit 43 white blood cell count 13.5 MCV 108 sodium 146 potassium 3.2 chloride [address] abdomen pelvis with contrast demonstrates fat stranding adjacent to the pancreatic head is favored to represent early interstitial edematous pancreatitis and less likely duodenitis or duodenal ulcer, study is similar to study performed August 30. Mild bilateral wall thickening can be seen with cystitis, sigmoid diverticulosis, atherosclerosis, scattered hepatic steatosis with central hepatics hyperdensity likely representing fat sparing. Digital rectal exam performed in the emergency department by me revealed normal- appearing brown stool which was Hemoccult negative. ED provider wishes to admit for further evaluation and management. - Past Medical/Surgical History Diabetic: No -: Asthma -: Depression -: Throat cancer status post complete laryngectomy/reconstruction 06/2018 -: Recurrent postop infection -: Chronic pain -: Former tobacco use -: Surgical hypothyroidism -: Tracheostomy -: Appendectomy -: Complete laryngectomy with reconstruction -: knee surgery bilateral knees -: Thyroidectomy Psychosocial/ Personal History: Patient is . He has 3 children. - Family History Father -: Heart disease, Diabetes Notes: agent orange: immobile Mother -: Cancer Notes: breast ca - Social History Alcohol use: Yes CD- Drugs: No Caffeine use: Yes Place of Residence: Home <Anthony Franklin - Last Filed: 09/10/20 04:02> Date of Service: 09/10/20 <Bala Anderson - Last Filed: 09/10/20 10:59> Allergies levofloxacin [From Levaquin] Allergy (Severe, Verified 04/06/19 22:53) Itching/Hives/Rash ampicillin Allergy (Verified 04/06/19 22:53) Itching/Hives/Rash iodine Allergy (Verified 04/06/19 22:53) Hives/Rash Home Medications: Escitalopram [Lexapro*] 20 mg PO DAILY 05/27/18 Levothyroxine Sodium [Levoxyl] 137 mcg PO Q48H 06/26/18 Levothyroxine Sodium [Levoxyl] 125 mcg PO Q48H 08/31/20 Lipase/Protease/Amylase [Creon Dr 12,000 Units Capsule] 1 tab PO TID 08/31/20 Nicotine [Nicotine Patch] 21 mg TD DAILY 08/31/20 Hydrocodone 10/APAP 325 [[place] 10/325] 1 tab PO Q12H PRN #30 tab 09/02/20 Review of Systems 10-point ROS is otherwise unremarkable Gastrointestinal: Nausea, Vomiting, Abdominal Pain, Diarrhea, As per HPI <Anthony Franklin - Last Filed: 09/10/20 04:02> Physical Examination - Physical Exam General: Alert, In no apparent distress HEENT: Atraumatic, PERRLA, Mucous membr. moist/pink Neck: Supple, 2+ carotid pulse no bruit, No LAD Respiratory: Clear to auscultation bilaterally, Normal air movement Cardiovascular: Regular rate/rhythm, Normal S1 S2 Gastrointestinal: Normal bowel sounds, No masses, No rebound, No guarding, Tenderness (Mild to moderate epigastric tenderness) Musculoskeletal: No contractures, No erythema Integumentary: No rashes Neurological: Normal speech, Normal strength at 5/5 x4 extr, Normal tone, Normal affect Lymphatics: No axilla or inguinal lymphadenopathy - Studies Laboratory Data (last 24 hrs) 09/09/20 23:28: WBC 13.50 H D, Hgb 14.2, Hct 43.0, Plt Count 283 09/09/20 23:28: Sodium 146 H, Potassium 3.2 L, BUN 4 L, Creatinine 0.55, Glucose 100, Total Bilirubin 0.3, AST 15, ALT 21, Alkaline Phosphatase 104, Lipase 694 H <Anthony Franklin - Last Filed: 09/10/20 04:02> - Studies Laboratory Data (last 24 hrs) 09/10/20 03:57: Triglycerides 88, Cholesterol 123, HDL Cholesterol 40, Cholesterol/HDL Ratio 3.08 09/09/20 23:28: WBC 13.50 H D, Hgb 14.2, Hct 43.0, Plt Count 283 09/09/20 23:28: Sodium 146 H, Potassium 3.2 L, BUN 4 L, Creatinine 0.55, Glucose 100, Total Bilirubin 0.3, AST 15, ALT 21, Alkaline Phosphatase 104, Lipase 694 H <Bala Anderson - Last Filed: 09/10/20 10:59> Assessment and Plan - Plan Assessment Acute pancreatitis complicated with possible duodenitis or duodenal ulcer History of COPD 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 Will continue with IV fluids, NPO, p.r.n. pain medications and anti emetics. Will also continue with Protonix 40 mg IV b.i.d.. White blood cell count mildly elevated at 13,000, patient previously had 17,000 white count on 1st day of admission pancreatitis which decreased significantly the 2nd day without antibiotics. Pro calcitonin pending and lipid panel pending. Patient previous cholecystectomy. patient afebrile, no signs of acute abdomen or other infection at this time. Will hold off on antibiotic therapy. DVT prophylaxis Lovenox 40 mg subcutaneous once daily. Anticipate clinical improvement next 48-72 hr. History of COPD: Stable, p.r.n. medications. 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 Patient communicates with writing. Depression: Stable continue home medications as appropriate. Discharge Plan: Home Plan to discharge in: Greater than 2 days - Advance Directives Does patient have a Living Will: No Does patient have a Durable POA for Healthcare: Yes - Code Status/Comfort Care Code Status Assessed: Yes (Full code) Critical Care: No Time Spent Managing Pts Care (In Minutes): 55 <Anthony Franklin - Last Filed: 09/10/20 04:02> - Plan Plan of care reviewed as noted above. Patient seen and examined this AM, reports unchanged symptoms. On further discussion, states he has had several EGDs, most of workup has been done at [facility] reports he throws up undigested food the following day after eating. liquids seem to do ok. never had a gastric emptying study done before continue treatment for acute pancreatitis, would benefit from GI consult, however no coverage this weekend will attempt to obtain gastric emptying study today clear liquids after study, restart home meds. currently without nausea <Bala Anderson - Last Filed: 09/10/20 10:59>
[2020-09-10] MEDS ORDERED: SODIUM CHLORIDE 0.9% 10ML INJ IV PRN (05:11)
[2020-09-10] MEDS ORDERED: MORPHINE 2 MG/ML SYR IV PRN (05:11)
[2020-09-10] MEDS: D5W 1,000 ML IV SCH ×3 (05:11→21:11)
[2020-09-10 05:35] VITALS: BMI 26.7
[2020-09-10 06:00] LABS: Absolute Lymphocytes (CBC) 0.6 K/uL (0.7-4.9); Basophils % 0.4 % (0-1.3); Hematocrit 43.9 % (39.6-49.0); Lymphocytes % 4.4 % (15.3-44.8); RBC Red Blood Cell Count 4.03 M/uL (4.33-5.43)
[2020-09-10 06:16] LABS: ALT/SGPT 26 U/L (12-78); AST/SGOT 24 U/L (15-37); Alkaline Phosphatase 120 U/L (45-117); BUN Blood Urea Nitrogen 3 mg/dL (7-18); Bicarbonate 26 mmol/L (21-32); Bilirubin Total 0.3 mg/dL (0.2-1.0); Glucose Level 148 mg/dL (74-106); Lipase 577 U/L (73-393); Magnesium 1.9 mg/dL (1.8-2.4); Potassium 3.3 mmol/L (3.5-5.1); Protein, Total 6.8 g/dL (6.4-8.2); Sodium Level 145 mmol/L (136-145)
[2020-09-10 06:50] LABS: Urine Appearance CLEAR (Clear); Urine Bilirubin NEGATIVE (Negative); Urine Blood NEGATIVE (Negative); Urine Color YELLOW (Yellow); Urine Glucose NEGATIVE (Negative); Urine Protein NEGATIVE (Negative); Urine Specific Gravity 1.015 (1.005-1.030); Urine Urobilinogen 0.2 mg/dL (0.2-1.0)
[2020-09-10 06:53] LABS: Urine Microscopic Reflex NO UMIC
[2020-09-10] MEDS: ONDANSETRON 4 MG/2 ML VIAL IV PRN (08:11)
[2020-09-10] MEDS: KCL 20 MEQ/100 mL IVPB 20 MEQ/100 ML BAG IV SCH ×2 (08:11→12:15)
[2020-09-10] MEDS: PANTOPRAZOLE 40 MG INJ IVP SCH ×2 (08:11→20:57)
[2020-09-10] MEDS: ENOXAPARIN 40 MG/0.4 ML SQ SCH (08:12)
[2020-09-10] MEDS ORDERED: HYDROCODONE/APAP 10/325 TAB PO PRN (08:55)
[2020-09-10] MEDS ORDERED: LIPASE/PROTEASE/AMYLASE CAP PO SCH (09:00)
[2020-09-10] MEDS: ESCITALOPRAM 20 MG TAB PO SCH (10:13)
[2020-09-10] MEDS ORDERED: LEVOTHYROXINE SOD 0.125 MG TAB PO SCH (11:00)
[2020-09-10] MEDS: ALBUTEROL 2.5 MG/3 ML NEB SOL NEB PRN ×2 (11:14→20:15)
[2020-09-10] MEDS: LIPASE/PROTEASE/AMYLASE CAP PO SCH ×2 (12:00→17:18)
[2020-09-10] MEDS: MORPHINE 4 MG/ML SYR IV PRN ×3 (12:15→21:39)
--- NOTE | 2020-09-10 15:49 | RAD REPORT ---
EXAM DESCRIPTION: NM - Gastric Emptying Study - 09/10/2020 2:35 pm CLINICAL HISTORY: gastroparesis eval COMPARISON: No comparisonsAbdomen Pelvis W Contrast dated 09/10/2020 TECHNIQUE: The patient was administered approximately 1 mCi Tc 99m sulfur colloid in solid egg meal. Imaging of the left upper quadrant was performed with time/activity curve generated. FINDINGS: Cine-loop images show normal progression of the radiopharmaceutical from the stomach into the small bowel. Time to one-half activity is 30 minutes, normal. Two hour retention is 4%. No other significant findings. IMPRESSION: Normal gastric emptying study.
--- NOTE | 2020-09-10 22:29 | RAD REPORT ---
EXAM DESCRIPTION: CT - Abdomen Pelvis W Contrast - 09/10/2020 6:34 am COMPARISON: CT abdomen and pelvis August 30, 2020 CLINICAL HISTORY: ABD PAIN TECHNIQUE: CT of the abdomen and pelvis was acquired with IV contrast material. Coronal and sagitt al reconstructions were obtained. Automated exposure control was utilized on this examination as a dose lowering technique. FINDINGS: Lung bases: Clear. Liver: Stable 8.5 x 4.7 x 4.2 cm region of increased central hyperdensity. Scattered hepatic hypodens ity is also present. Gallbladder and biliary: Cholecystectomy. Unremarkable biliary tree. Pancreas: Mild fat stranding is present adjacent to the pancreatic head. Spleen: Normal. Adrenal glands: Normal adrenal glands. Kidneys: Normal kidneys Stomach and Small Bowel: The stomach and small bowel are normal. Urinary bladder: Mild bladder wall thickening is present. Prostate/Male Urogenital: Normal. Colon and Appendix: Severe sigmoid diverticulosis. No evidence of appendicitis. Retroperitoneum and lymph nodes: Normal. Vascular: Severe multivessel calcified atherosclerosis. Peritoneal cavity: No ascites or free air. Musculoskeletal and soft tissues: Soft tissues are unremarkable. No aggressive bone lesions. No com pression fracture. IMPRESSION: 1. Fat stranding adjacent to the pancreatic head is favored to represent early interstit ial edematous pancreatitis and less likely duodenitis or duodenal ulcer. The appearance is similar to August 30, 2020. 2. Mild bladder wall thickening may be seen with cystitis. 3. Severe sigmoid diverticulosis. 4. Severe atherosclerosis. 5. Scattered hepatic steatosis is present. Central hepatic hyperdensity likely represents fat sparing . Electronically signed by: Joey Sood MD 09/10/2020 2:58 AM CDT Due to temporary technical issues with the PACS/Fluency reporting system, reports are being signed by the in house radiologists without review as a courtesy to insure prompt reporting. The interpreting radiologist is fully responsible for the content of the report.
[2020-09-11] MEDS: MORPHINE 4 MG/ML SYR IV PRN ×6 (01:39→22:30)
[2020-09-11] MEDS: D5W 1,000 ML IV SCH ×3 (01:40→23:11)
[2020-09-11] MEDS: MELATONIN 5 MG TABLET PO PRN ×2 (01:47→22:30)
[2020-09-11 05:57] LABS: Absolute Lymphocytes (CBC) 1.2 K/uL (0.7-4.9); Basophils % 0.5 % (0-1.3); Hematocrit 42.2 % (39.6-49.0); Lymphocytes % 8.5 % (15.3-44.8); MPV 8.8 fL (7.6-11.3); RBC Red Blood Cell Count 3.92 M/uL (4.33-5.43)
[2020-09-11 06:07] LABS: ALT/SGPT 21 U/L (12-78); AST/SGOT 14 U/L (15-37); Albumin 2.6 g/dL (3.4-5.0); Alkaline Phosphatase 98 U/L (45-117); BUN Blood Urea Nitrogen 2 mg/dL (7-18); Bicarbonate 29 mmol/L (21-32); Bilirubin Total 0.2 mg/dL (0.2-1.0); Glucose Level 116 mg/dL (74-106); Lipase 304 U/L (73-393); Magnesium 1.8 mg/dL (1.8-2.4); Potassium 3.5 mmol/L (3.5-5.1); Protein, Total 6.2 g/dL (6.4-8.2); Sodium Level 147 mmol/L (136-145)
[2020-09-11] MEDS: LEVOTHYROXINE SOD 0.112 MG TAB PO SCH (06:41)
[2020-09-11] MEDS: LEVOTHYROXINE SOD 0.025 MG TAB PO SCH (06:41)
[2020-09-11] MEDS: ALBUTEROL 2.5 MG/3 ML NEB SOL NEB PRN ×2 (07:45→20:45)
--- NOTE | 2020-09-11 08:22 | P.PN ---
Subjective Date of Service: 09/11/20 Chief Complaint: Acute pancreatitis Subjective: No new changes (feels overall maybe slightly better, no nausea/vomiting. Epigastric pain is mostly unchanged. No diarrhea, urinating without issue. Gastric emptying study negative yesterday) Review of Systems 10-point ROS is otherwise unremarkable Physical Examination - Vital Signs Temperature: 97.3 F Blood Pressure: 155/81 Pulse: 82 Respirations: 18 Pulse Ox (%): 98 Assessment & Plan Physician Review Additional Text: Physical Exam General: Alert, uncomfortable at times HEENT: sclera anicteric Respiratory: Clear to auscultation bilaterally, Normal air movement Cardiovascular: Regular rate/rhythm, Normal S1 S2 Gastrointestinal: soft, moderate TTP in epigastrium, no rebound Musculoskeletal: No contractures, No erythema Neurological: ABnormal speech (weak voice s/p resection/trach), Normal strength at 5/5 x4 extr Problem list Acute pancreatitis complicated with possible duodenitis or duodenal ulcer Chronic COPD History of laryngeal cancer with total laryngectomy and reconstruction now trach dependent Depression -CT: favors early pancreatitis vs duodenitis/duodenal ulcer -hemoccult negative in ED -continue full liquids, lower IVF, pain control, protonix -arthur leukocytosis persists, afebrile -gastric emptying study done and negative, pt reported multiple episodes over weeks-months throwing up undigested food from day before -nebs ordered for chronic COPD, no acute exacerbation -patient reports this is 5th or 6th admission for similar symptoms in the last few months -still requiring frequent pain medication -had 2 EGDs at [facility] ~4-6 months ago -will consult GI -continue full liquid, back down if worsens Dispo: anticipate dc home in ~48-72hrs. needing further clinical improvement, GI eval Time Spent Managing Pts Care (In Minutes): 35
[2020-09-11] MEDS: LIPASE/PROTEASE/AMYLASE CAP PO SCH ×3 (08:53→17:02)
[2020-09-11] MEDS: PANTOPRAZOLE 40 MG INJ IVP SCH ×2 (08:54→20:33)
[2020-09-11] MEDS: ENOXAPARIN 40 MG/0.4 ML SQ SCH (08:54)
[2020-09-11] MEDS: ESCITALOPRAM 20 MG TAB PO SCH (08:54)
[2020-09-11] MEDS ORDERED: MAGNESIUM SULFATE 1 gm IVPB 1 GM/100 ML BAG IV ONE (09:00)
[2020-09-11] MEDS ORDERED: POTASSIUM CL SA 10 MEQ TAB PO ONE (09:00)
[2020-09-11] MEDS ORDERED: HYDRALAZINE HCL 20 MG/ML VIAL IV PRN (10:35)
[2020-09-11] MEDS: ONDANSETRON 4 MG/2 ML VIAL IV PRN ×2 (14:39→20:40)
[2020-09-12 00:43] VITALS: O2SAT 98
[2020-09-12] MEDS: MORPHINE 4 MG/ML SYR IV PRN ×6 (02:42→23:18)
[2020-09-12 04:39] LABS: Absolute Lymphocytes (CBC) 0.9 K/uL (0.7-4.9); Basophils % 0.9 % (0-1.3); Hematocrit 39.1 % (39.6-49.0); Lymphocytes % 9.1 % (15.3-44.8); RBC Red Blood Cell Count 3.66 M/uL (4.33-5.43)
[2020-09-12 05:02] LABS: ALT/SGPT 22 U/L (12-78); AST/SGOT 17 U/L (15-37); Albumin 2.4 g/dL (3.4-5.0); Alkaline Phosphatase 95 U/L (45-117); BUN Blood Urea Nitrogen 1 mg/dL (7-18); Bicarbonate 31 mmol/L (21-32); Bilirubin Total 0.2 mg/dL (0.2-1.0); Glucose Level 89 mg/dL (74-106); Lipase 203 U/L (73-393); Potassium 3.6 mmol/L (3.5-5.1); Protein, Total 5.8 g/dL (6.4-8.2); Sodium Level 144 mmol/L (136-145)
[2020-09-12] MEDS ORDERED: LEVOTHYROXINE SOD 0.125 MG TAB PO SCH ×2 (06:30→07:30)
[2020-09-12] MEDS: ONDANSETRON 4 MG/2 ML VIAL IV PRN ×3 (06:33→23:18)
[2020-09-12] MEDS: LIPASE/PROTEASE/AMYLASE CAP PO SCH ×3 (09:32→16:58)
[2020-09-12] MEDS: ESCITALOPRAM 20 MG TAB PO SCH (09:32)
[2020-09-12] MEDS: ENOXAPARIN 40 MG/0.4 ML SQ SCH (09:33)
[2020-09-12] MEDS: PANTOPRAZOLE 40 MG INJ IVP SCH ×2 (09:33→19:40)
--- NOTE | 2020-09-12 13:07 | P.PN ---
Subjective Date of Service: 09/12/20 Chief Complaint: Acute pancreatitis Subjective: Improving (slight improvement in pain, +flatus, no BM, no nausea, tolerating full liquids) Review of Systems 10-point ROS is otherwise unremarkable Physical Examination - Vital Signs Temperature: 97.4 F Blood Pressure: 158/85 Pulse: 73 Respirations: 18 Pulse Ox (%): 98 Assessment & Plan Physician Review Additional Text: Physical Exam General: Alert, uncomfortable at times HEENT: sclera anicteric Respiratory: Clear to auscultation bilaterally, Normal air movement Cardiovascular: Regular rate/rhythm, Normal S1 S2 Gastrointestinal: soft, moderate TTP in epigastrium, non-distended Musculoskeletal: No contractures, No erythema Neurological: Abnormal speech (weak voice s/p resection/trach) Problem list Acute pancreatitis complicated with possible duodenitis or duodenal ulcer Chronic COPD History of laryngeal cancer with total laryngectomy and reconstruction now trach dependent Depression -CT: favors early pancreatitis vs duodenitis/duodenal ulcer -hemoccult negative in ED -advance diet as tolerated. continue IVF, pain control, protonix -afebrile, leukocytosis improved -gastric emptying study done and negative, pt reported multiple episodes over weeks-months throwing up undigested food from day before -nebs ordered for chronic COPD, no acute exacerbation -patient reports this is 5th or 6th admission for similar symptoms in the last few months -still requiring frequent pain medication -had 2 EGDs at [facility] ~6 months ago -GI consulted for further recommendations Dispo: anticipate dc home in ~24-48hrs. needing further clinical improvement, GI eval Time Spent Managing Pts Care (In Minutes): 35
[2020-09-12] MEDS: D5W 1,000 ML IV SCH (15:05)
[2020-09-12] MEDS: MELATONIN 5 MG TABLET PO PRN (23:18)
[2020-09-13] MEDS: MORPHINE 4 MG/ML SYR IV PRN ×2 (04:12→08:33)
[2020-09-13 04:38] LABS: Absolute Lymphocytes (CBC) 0.8 K/uL (0.7-4.9); Basophils % 0.6 % (0-1.3); Hematocrit 47.4 % (39.6-49.0); Lymphocytes % 7.5 % (15.3-44.8); MPV 9.1 fL (7.6-11.3); RBC Red Blood Cell Count 4.42 M/uL (4.33-5.43)
[2020-09-13 05:01] LABS: ALT/SGPT 29 U/L (12-78); AST/SGOT 21 U/L (15-37); Albumin 2.9 g/dL (3.4-5.0); Alkaline Phosphatase 131 U/L (45-117); BUN Blood Urea Nitrogen 2 mg/dL (7-18); Bicarbonate 35 mmol/L (21-32); Bilirubin Total 0.6 mg/dL (0.2-1.0); Glucose Level 85 mg/dL (74-106); Lipase 127 U/L (73-393); Magnesium 2.2 mg/dL (1.8-2.4); Potassium 4.6 mmol/L (3.5-5.1); Protein, Total 7.2 g/dL (6.4-8.2); Sodium Level 141 mmol/L (136-145)
[2020-09-13 05:34] LABS: Blood Morphology Comment NOTED (NOT SEEN); Macrocytosis 1+; Platelet Estimate ADEQ
[2020-09-13] MEDS: LEVOTHYROXINE SOD 0.112 MG TAB PO SCH (06:19)
[2020-09-13] MEDS: LEVOTHYROXINE SOD 0.025 MG TAB PO SCH (06:21)
[2020-09-13] MEDS: LIPASE/PROTEASE/AMYLASE CAP PO SCH ×2 (08:32→11:40)
[2020-09-13] MEDS: ESCITALOPRAM 20 MG TAB PO SCH (08:32)
[2020-09-13] MEDS: PANTOPRAZOLE 40 MG INJ IVP SCH (08:33)
[2020-09-13] MEDS: ENOXAPARIN 40 MG/0.4 ML SQ SCH (08:33)
[2020-09-13] MEDS ORDERED: LORazepam 2 MG/ML VIAL IV ONE ×2 (11:00→12:00)
--- NOTE | 2020-09-13 13:01 | RAD REPORT ---
EXAM DESCRIPTION: MRI - Cholangiogram - 09/13/2020 12:52 pm CLINICAL HISTORY: Pancreatitis, abdominal pain COMPARISON: CT abdomen and pelvis September 10 TECHNIQUE: Axial and coronal heavily T2 weighted sequences were obtained. Coronal T2 HASTE fat satur ation static and coronal multiplane reconstruction imaging generated and reviewed. Horizontal and kathie tical axis rotational views obtained using maximum intensity projection (MIP) protocol. FINDINGS: Common hepatic duct and common bile duct are 6-7 mm in size which is normal for a post cho lecystectomy patient. Patient has a long remnant of cystic duct. The patient has a normal variant wit h the cystic duct inserting low in the distal common bile duct. No stricture, mass, stone or other ab normality seen within the cystic duct or extrahepatic biliary tree. There is no intrahepatic biliary tree dilatation or abnormality seen. Normal diameter pancreatic duct is seen with no abnormal stricture, mass or intraluminal filling defe ct. IMPRESSION: Unremarkable post cholecystectomy MRCP.
--- NOTE | 2020-09-13 15:53 | P.PN ---
Subjective Date of Service: 09/13/20 Chief Complaint: Acute pancreatitis Patient now tolerating clear liquid diet. MRCP unremarkable. Physical Examination - Vital Signs Temperature: 97.9 F Blood Pressure: 123/89 Pulse: 88 Respirations: 17 Pulse Ox (%): 95 - Physical Exam General: Alert, In no apparent distress HEENT: Mucous membr. moist/pink Neck: Other (Tracheostomy stoma) Respiratory: Clear to auscultation bilaterally, Normal air movement Cardiovascular: No edema, Regular rate/rhythm, Normal S1 S2 Gastrointestinal: Soft and benign, Non-distended, No tenderness Musculoskeletal: No swelling, No tenderness Integumentary: No rashes, No erythema Neurological: Normal strength at 5/5 x4 extr Assessment And Plan Physician Review Additional Text: Problem list Acute pancreatitis complicated with possible duodenitis or duodenal ulcer Chronic COPD History of laryngeal cancer with total laryngectomy and reconstruction now trach dependent Depression -CT: favors early pancreatitis vs duodenitis/duodenal ulcer. -MRCP unremarkable -hemoccult negative in ED -IV Protonix for duodenitis -advance diet as tolerated. pain control. -afebrile, leukocytosis improved -gastric emptying study done and negative, pt reported multiple episodes over weeks-months throwing up undigested food from day before -nebs ordered for chronic COPD, no acute exacerbation -had 2 EGDs at [facility] ~6 months ago -GI input appreciated. Patient stable for discharge per Dr. Francisco.
--- NOTE | 2020-09-13 16:09 | P.DS ---
Admission Date: 09/10/20 Discharge Date: 09/13/20 Discharge Condition: FAIR Reason for Admission: Acute pancreatitis Consultations: GI-Dr. Francisco. 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 Patient has a history of hospitalizations for pancreatitis. He reported nausea vomiting and diarrhea. Evaluation emergency department revealed lipase of 694. CT abdomen and pelvis demonstrated fat stranding adjacent to the pancreatic head favoring acute pancreatitis and less likely due to 90s or duodenal ulcer. Patient reported multiple EGDs in the past. CT abdomen and pelvis also showed bladder wall thickening suggestive of cystitis. Patient was hospitalized for further management. Hospital Course: Patient admitted to the medical floor and started on supportive measures including IV fluid, started on IV Protonix for possible duodenitis. His home medications were continued during the hospital stay. GI was consulted, patient was seen by Dr. Francisco an MRCP performed which was read as unremarkable. Patient later tolerated clear liquid diet. His lipase level was elevated but this improved to normal levels with treatment. Patient has clinically improved and deemed stable for discharge. He is prescribed Protonix for possible duodenitis. He is also informed to proceed from soft diet and advance his diet as tolerated. Vital Signs/Physical Exam: Temp Pulse Resp BP Pulse Ox 97.9 F 88 17 123/89 95 09/13/20 15:53 09/13/20 15:53 09/13/20 15:53 09/13/20 15:53 09/13/20 15:53 General: Alert, In no apparent distress, Oriented x3 HEENT: Mucous membr. moist/pink Neck: JVD not distended Respiratory: Clear to auscultation bilaterally, Normal air movement Cardiovascular: No edema, Regular rate/rhythm, Normal S1 S2 Gastrointestinal: Normal bowel sounds, Soft and benign, Non-distended, No tenderness Musculoskeletal: No swelling Integumentary: No rashes Neurological: Normal strength at 5/5 x4 extr Laboratory Data at Discharge: WBC 10.60 K/uL (4.3-10.9) 09/13/20 04:10 Hgb 16.1 g/dL (13.6-17.9) D 09/13/20 04:10 Hct 47.4 % (39.6-49.0) D 09/13/20 04:10 Plt Count 282 K/uL (152-406) 09/13/20 04:10 Sodium 141 mmol/L (136-145) 09/13/20 04:10 Potassium 4.6 mmol/L (3.5-5.1) 09/13/20 04:10 BUN 2 mg/dL (7-18) L 09/13/20 04:10 Creatinine 0.62 mg/dL (0.55-1.3) 09/13/20 04:10 Glucose 85 mg/dL (74-106) 09/13/20 04:10 Phosphorus 4.0 mg/dL (2.5-4.9) 09/13/20 04:10 Magnesium 2.2 mg/dL (1.8-2.4) 09/13/20 04:10 Total Bilirubin 0.6 mg/dL (0.2-1.0) 09/13/20 04:10 AST 21 U/L (15-37) 09/13/20 04:10 ALT 29 U/L (12-78) 09/13/20 04:10 Alkaline Phosphatase 131 U/L (45-117) H 09/13/20 04:10 Triglycerides 88 mg/dL (<150) 09/10/20 03:57 Cholesterol 123 mg/dL (<200) 09/10/20 03:57 HDL Cholesterol 40 mg/dL (40-60) 09/10/20 03:57 Cholesterol/HDL Ratio 3.08 09/10/20 03:57 Lipase 127 U/L (73-393) 09/13/20 04:10 Home Medications: Escitalopram [Lexapro*] 20 mg PO DAILY 05/27/18 Levothyroxine Sodium [Levoxyl] 137 mcg PO Q48H 06/26/18 Levothyroxine Sodium [Levoxyl] 125 mcg PO Q48H 08/31/20 Lipase/Protease/Amylase [Creon 12,000 Units Capsule] 1 tab PO TID 08/31/20 Nicotine [Nicotine Patch] 21 mg TD DAILY 08/31/20 Hydrocodone 10/APAP 325 [[place] 10/325*] 1 tab PO Q12H PRN #30 tab 09/02/20 Pantoprazole [Protonix Tab] 40 mg PO BID #60 tab 09/13/20 New Medications: Pantoprazole [Protonix Tab] 40 mg PO BID #60 tab Diet: Regular (Soft diet for the next 2 days and advance as tolerated.) Activity: Ad get Time spent managing pt's care (in minutes): 33
[2020-09-13 16:48] VITALS: BP 133/97; TEMP 97.2
== END 2020-09-13 16:30 | disposition home or self-care (01) | DRG 440 ==
LOC: ER 22:07 → ERHOLD 09-10 04:06 → 2ND 09-10 04:49
PROVIDERS: ADMIT Hospitalist; ATTEND Hospitalist
DX: K85.90 Acute pancreatitis without necrosis or infection, unspecified (principal); J44.9 Chronic obstructive pulmonary disease, unspecified; K29.80 Duodenitis without bleeding; F32.9 Major depressive disorder, single episode, unspecified; E89.0 Postprocedural hypothyroidism; Z85.21 Personal history of malignant neoplasm of larynx; Z93.0 Tracheostomy status
CPT/HCPCS: 36415; 74177; 74181; 78264; 80048; 80053; 80061; 80076; 81003; 83690; 83735; 84100; 84145; 85025; 94640; 96361; 96374; 96375; 99285; A9541; C9113; J1200; J1650; J1720; J2270; J2405; J2920; J3475; J3480; J7030; Q9967

== ENCOUNTER 2021-02-15 18:32 | Observation (INO) | payer OTHER ==
--- OUTSIDE RECORDS SUMMARY | 2021-02-15 19:16 | XMS REPORT | Continuity of Care Document ---
:1970 Author Organization [facility] t Address [address] [place] [address] [address]. [address] [place] [address] Care Team Providers Name Role Phone Steffanie BRIDGES Primary Care Physician Unavailable MILY Attending Clinician Unavailable SAMI Attending Clinician Unavailable KARTHIKEYAN Attending Clinician Unavailable Emery PENA L Attending Clinician Unavailable EULOGIO Attending Clinician Unavailable Bonilla INMAN Attending Clinician Eulogio INMAN Attending Clinician Nolan PENA, A Attending Clinician Unavailable MEDINA Attending Clinician Unavailable Felisha INMAN S Attending Clinician Medina INMAN Attending Clinician Fabiano OLIVER, L Attending Clinician Singer KHALIL Attending Clinician Attending Clinician Unavailable González INMAN Attending Clinician Heri INMAN Attending Clinician Joe [place] Attending Clinician Karthikeyan INMAN Attending Clinician HERI Attending Clinician Unavailable Portia PENA M Attending Clinician Porfirio KHALIL Attending Clinician Steffanie BRIDGES Attending Clinician Unavailable Steffanie Bridges MD Attending Clinician Shoshana Costa DO Attending Clinician Miguel CLERICAL INVESTIGATOR, B Attending Clinician Doctor Unassigned, Name Attending Clinician Unavailable Pob, Lab Main Attending Clinician Unavailable Jez CLERICAL INVESTIGATOR Attending Clinician JEZ Attending Clinician Unavailable Abeba HARRINGTON Mel Attending Clinician ANEFAUSTO Attending Clinician Unavailable Wendy Dixon MD Attending Clinician LEO SHAFFER Attending Clinician Unavailable Adri ALBARRAN, R Attending Clinician Dakota TENA Attending Clinician Unavailable TEQUILA Attending Clinician Unavailable Tequila INMAN Attending Clinician THOR DAVENPORT Attending Clinician Unavailable Tamiko PENA Attending Clinician Lab, Fam Pob I Attending Clinician Unavailable Evon SAMANIEGOP Attending Clinician Machelle INMAN, Arash Attending Clinician Dawna INMAN Attending Clinician Jeaneth INMAN, [facility] Attending Clinician Chon INMAN, Ava Attending Clinician Thor Davenport MD Attending Clinician COMMUNITY RELATIONS MANAGER, E Attending Clinician Trevor INMAN, Shoshana Attending Clinician Jaquelin CLERICAL INVESTIGATOR, T Attending Clinician Kaela CLERICAL INVESTIGATOR, R Attending Clinician Jet INMAN Attending Clinician Provider, Urgent Care Attending Clinician Unavailable Leo Shaffer MD Attending Clinician Caterina SANTOS, B Attending Clinician Unavailable Apolinar GONZALEZ, L Attending Clinician Dakota JIANG Attending Clinician Unavailable Sami INMAN Attending Clinician STEVO DRAKE Attending Clinician Unavailable Stevo Drake MD Attending Clinician Guillermo Herrera MD Attending Clinician JAELYN FRAIRE Attending Clinician Unavailable ALESSANDRO ORDOÑEZ Attending Clinician Unavailable CONRADO HUERTA Attending Clinician Unavailable MILY Admitting Clinician Unavailable EULOGIO Admitting Clinician Unavailable Eulogio INMAN Admitting Clinician MEDINA Admitting Clinician Unavailable Medina INMAN Admitting Clinician Admitting Clinician Unavailable González INMAN Admitting Clinician GONZÁLEZ Admitting Clinician Unavailable Porfirio KHALIL Admitting Clinician Dawna INMAN Admitting Clinician Jet INMAN Admitting Clinician SAMI Admitting Clinician Unavailable JAELYN FRAIRE Admitting Clinician Unavailable CONRADO HUERTA Admitting Clinician Unavailable Payers Payer Name Policy Type Policy Number Effective Date Expiration Date [facility] [id number] 2018 MEDICAID 00:00:00 HUMANA MEDICARE [id number] 2020 00:00:00 MEDICARE PART A \\T\\ [id number] 2019 B 00:00:00 MEDICAID OF [place] [id number] Advance Directives Directive Decision Effective Termination Comments Source Date Date Healthcare Agents on N/A [facility] ersity FileNameRelationshipHealthcare [facility] Agent Medical RelationshipCommunicationGeorgia Branch Yessy AtwoodiendFirst [facility] [phone] (Mobile) Problems Condition Condition Condition Status Onset Resolution Last Treating Co mments Source Name Details Category Date Date Treatment Clinician Date Cellulitis Cellulitis Disease Active 2020-04 U nivers 1-07 ity of 00:00: [place] 00 [facility] Branch Pancreatit Pancreatit Disease Active 2020-04 U nivers is, is, 0-30 ity of recurrent recurrent 00:00: [facility] 00 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.0 E44.0 Disease Active 2021-0 Univers Moderate Moderate 8-27 ity of protein protein 00:00: [place] calorie calorie 00 Medical malnutriti malnutriti Br anch on on Acute on Acute on Disease Active Unive rs chronic chronic 8-25 ity of pancreatit pancreatit [place] 00 [facility] [place] Alcohol-in Alcohol-in Disease Active U nivers duced duced 6-23 ity of acute acute 00:00: [place] pancreatit pancreatit 00 Me dical is, is, Branch unspecifie unspecifie d d complicati complicati on status on status Pancreatit Pancreatit Disease Active U nivers is, is, 5-28 ity of unspecifie unspecifie [place] 00 Medical pancreatit pancreatit Br anch is type is type Acute Acute Disease Active Univers pancreatit pancreatit 5-24 it y of is without is without 00:[place] infection infection 00 Medi julieta or or Branch necrosis necrosis Epigastric Epigastric Disease Active 2019-04 U nivers abdominal abdominal 1-10 ity of pain pain 00:00: [place] [facility] Gallstone Gallstone Disease Active 2019-04 Overview: Univers pancreatit pancreatit 1-10 Formattin ity of is is 00:00: g of this [place] 00 note Medical might be Branch different from the original. Added automatic ally from request for surgery [id number] Acute Acute Disease Active 2019-04 Univers pancreatit pancreatit 0-30 it y of is is 00:00: [place] [facility] Epigastric Epigastric Disease Active 2019-04 Overview : Univers pain pain 0-29 Formattin ity of 00:00: g of this [place] 00 note Medical might be Branch different from the original. Added automatic ally from request for surgery [id number] Dysphagia, Dysphagia, Disease Active 2019-04 Overview : Univers unspecifie unspecifie 0-29 Formattin ity of d type d type 00:00: g of this [place] note Medical might be Branch different from the original. Added automatic ally from request for surgery [id number] Pancreatit Pancreatit Disease Active 2019-04 U nivers is is 0-07 ity of 00:00: [place] [facility] Dehydratio Dehydratio Disease Active 2019-04 U nivers n n 0-06 ity of 00:00: [place] 00 Medical Branch Aphonia Aphonia Disease Active 2020-0 Univers 1-13 ity of 00:00: [place] 00 Medical Branch Anemia of Anemia of Disease Active 2019- Uni vers chronic chronic 4-16 ity of disease disease 00:00: [place] 00 Medical Branch S/P S/P Disease Active 2019-0 Univers laryngecto laryngecto 4-16 it y of my my 00:00: [place] 00 Medical Branch S/P flap S/P flap Disease Active 2019-0 Unive rs graft graft 4-16 ity of 00:00: [place] 00 Medical Branch History of History of Disease Active 2019-0 U nivers laryngeal laryngeal 4-11 ity of cancer cancer 00:00: [place] 00 Medical Branch Tracheosto Tracheosto Disease Active 2019-0 U nivers my care my care 4-11 ity of 00:00: [place] 00 Medical Branch Acute on Acute on Disease Active 2019- Unive rs chronic chronic 3-16 ity of respirator respirator 00:00: [place] failure y failure 00 Medi julieta with with Branch hypoxemia hypoxemia Leukocytos Leukocytos Disease Active 2019-0 U nivers is is 3-12 ity of 00:00: [place] 00 Medical Branch 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 00 Medi julieta of larynx of larynx Bran ch Laryngeal Laryngeal Disease Active 2019-0 Uni vers mass mass 3-11 ity of 00:00: [place] 00 Medical Branch Presence Presence Disease Active 2019-0 Unive rs of of 3-11 ity of tracheosto tracheosto 00:00: [place] my 00 Medical Branch 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 stenosis 3-11 ity of 00:00: [place] 00 Medical Branch Laryngeal Laryngeal Problem Active [facility] cancer [...] esophagiti esophagiti Me moria s s l Outpati ent Clinics Essential Essential Problem Active [facility] (primary[facility] (primary[facility] - hypertensi hypertensi Me moria on on l Outpati ent Clinics Polyneurop Polyneurop Problem Active [facility]hy in athy in [facility] - diseases diseases Memori a classified classified l elsewhere elsewhere Outp ati ent Clinics Postablati Postablati Problem Active [facility] - hypothyroi hypothyroi Me moria dism dism l Outpati ent Clinics Malignant Malignant Problem Active [facility] (primary[facility] (primary) [facility] - neoplasm, neoplasm, Silvano giovani unspecifie unspecifie l d d Outpati ent Clinics Reactive Reactive Problem Active [facility] depression depression Emily kes - Memoria l Outpat[facility] ent Clinics Allergies, Adverse Reactions, Alerts Allergy Allergy Status Severity Reaction(s) Onset Inactive Treating Comm ents Source Name Type Date Date Clinician SULFAMET DRUG Active Med Rash 2020-04 Univers HOXAZOLE 04-07 ity of -TRIMETH 00:00: [place] OPRIM 00 Medical Branch Sulfamet Propensi Active Rash 2020-04 Univer s hoxazole ty to 04-07 ity of -Trimeth adverse 00:00: [place] oprim reaction 00 Medical s to Branch drug Iodine Drug Active Nausea Only 2018-0 Unive rs And Allergy 5-14 ity of Iodide 00:00: [place] Containi Medical ng Branch Products Povidone Propensi Active Nausea Only 2019-0 U nivers -Iodine ty to 5-14 ity of adverse 00:00: [place] reaction 00 Medical s Branch IODINE Drug Active Med NAUSEA ONLY 2019-0 Unive rs AND Class 5-14 ity of IODIDE 00:00: [place] CONTAINI 00 Medical NG Branch PRODUCTS POVIDONE DRUG Active Med NAUSEA ONLY 2018-0 Uni vers -IODINE INGREDI 5-14 ity of 00:00: [place] 00 Medical Branch IODINE Allergy Active Med Nausea 2019-[address] [facility] AND 5-14 [facility] - IODIDE 00:00: Medical CONTAINI 00 Center NG PRODUCTS Ampicill Propensi Active Unknown - 2018-0 Uni vers in ty to See comments 5-13 ity of adverse 00:00: [place] reaction 00 Medical s Branch AMPICILL DRUG Active Unknown-Cmnt 2018-0 Un maddie IN INGREDI 5-13 ity of 00:00: [place] 00 Medical Branch LEVOFLOX DRUG Active Hives 2019-0 Univers ACIN INGREDI 5-13 ity of 00:00: [place] 00 Medical Branch Levoflox Propensi Active Hives 2019-0 Univer s acin ty to 5-13 ity of adverse 00:00: [place] reaction 00 Medical s Branch PENICILL Drug Active Med Hives 2019-0 Univers INS Class 5-12 ity of 00:00: [place] 00 Medical Branch Penicill Propensi Active Hives 2019-0 Univer s ins ty to 5-12 ity of adverse 00:00: [place] reaction 00 Medical s Branch Levoflox Propensi Active Rash 2019-0 Univer s acin ty to 4-11 ity of adverse 00:00: [place] reaction 00 Medical s Branch Penicill Propensi Active Rash 2019-0 Other Univer s ins ty to 4-11 reaction( ity of adverse 00:00: s): [place] reaction 00 Unknown - Medic al s See Branch comments PENICILL Drug Active Med Hives 2019-0 Univers INS Class 4-11 ity of 00:00: [place] 00 Medical Branch LEVOFLOX DRUG Active Low Hives 2019-0 Univers ACIN INGREDI 4-11 ity of 00:00: [place] 00 Medical Branch AMPICILL Allergy Active Low Hives 2019-[address] [facility] IN 4-11 [facility] - 00:00: Medical 00 Center LEVOFLOX Allergy Active Low Hives 2019-[address] [facility] ACIN 4-11 [facility] - 00:00: Medical 00 Center Iodine Propensi Active Nausea 2017-0 Univers ty to and/or 12-20 ity of adverse Vomiting 00:00: [place] reaction 00 [facility] IODINE DRUG Active N/V 2017- Univers INGREDI 9- ity of 00:00: [place] 00 [facility] Iodine Adverse Active vomiting [facility] Social History Social Habit Start Date Stop Date Quantity Comments Source Exposure to Not sure [facility] SARS-CoV-2 [facility] (event) [place] Alcohol intake 2021-01-28 2021-01-28 Ex-drinker University of 00:00:00 00:00:00 (finding) [facility] Tobacco use and 2020-11-24 2020-11-24 Never used Universit y of exposure 00:00:00 00:00:00 [facility] Tobacco Comment 2020-08-26 2020-08-26 .5 PPD X >30 yrs Uni versity of 00:00:00 00:00:00 [place] [facility] Alcohol Comment 2020-08-22 2020-08-2204/05 of [facility] ersity of 00:00:00 00:00:00 per week [place] [facility] History SDOH 2020-02-10 2020-02-10 1 University o f Alcohol Frequency 00:00:00 00:00:00 [place] M edical Branch History SDOH 2020-02-10 2020-02-10 1 University o f Alcohol Binge 00:00:00 00:00:00 [place] Medic al Branch History SDOH 2020-02-09 2020-02-09 99 University o f Alcohol Std 00:00:00 00:00:00 [place] Medical Drinks Branch Education 2020-01-29 2020-01-29 21 University of 00:00:00 00:00:00 [place] [facility] History SDOH 2020-01-29 2020-01-29 5 University o f Financial 00:00:00 00:00:00 [place] [facility] History SDMT Food 2020-01-29 2020-01-29 1 Univers ity of Worry 00:00:00 00:00:00 [place] [facility] History SDOH Food 2020-01-29 2020-01-29 1 Univers ity of Scarcity 00:00:00 00:00:00 [place] [facility] History SDMT 2020-01-29 2020-01-29 2 University o f Transport Med 00:00:00 00:00:00 [place] Medic al Branch History SDMT 2020-01-29 2020-01-29 2 University o f Transport Non-Med 00:00:00 00:00:00 [facility] edical Branch Sex [birth year] At [birth year] Universit y of 00:00:00 00:00:00 [facility] Smoking Status Start Date Stop Date Source Former smoker 2020-11-24 00:00:00 2020-11-24 00:00:00 [facility] [place] Current some day 2020-11-13 00:00:00 [facility] smoker Medical Branch Current every day 2020-02-09 00:00:00 [facility] smoker Medical Branch Medications Ordered Filled Start Stop Current Ordering Indication Dosage Frequency Signature Comments Components Source Medication Medication Date Date Medication? Clinician (SIG) Name Name ferrous 2020-04 Yes 300mg Take 300 Unive rs sulfate 300 1-10 mg by ity of mg (60 mg 17:38: mouth 2 [place] iron)/5 mL 09 (two) Medical solution times Branch daily. atorvastati 2020-04 Yes 80mg Take 80 mg Univers n 80 mg 1-10 by mouth ity of tablet 17:38: at [place] 09 bedtime. Medical Branch albuterol 2020-04 Yes 2.5mg Inhale 2.5 U nivers 2.5 mg /3 1-10 mg every 4 ity of mL (0.083 17:38: (four) [place] %) 09 hours as Medical nebulizer needed for Bran ch solution Wheezing, Shortness of Breath or Bronchospa sm. levothyroxi 2020-04 Yes 137ug Take 137 U nivers ne 137 mcg 1-10 mcg by ity of tablet 17:38: mouth [place] 09 every Medical other day. Branch ferrous 2020-04 Yes 300mg Take 300 Unive rs sulfate 300 1-10 mg by ity of mg (60 mg 17:38: mouth 2 [place] iron)/5 mL 09 (two) Medical solution times Branch daily. atorvastati 2020-04 Yes 80mg Take 80 mg Univers n 80 mg 1-10 by mouth ity of tablet 17:38: at [place] 09 bedtime. Medical Branch albuterol 2020-04 Yes 2.5mg Inhale 2.5 U nivers 2.5 mg /3 1-10 mg every 4 ity of mL (0.083 17:38: (four) [place] %) 09 hours as Medical nebulizer needed for Bran ch solution Wheezing, Shortness of Breath or Bronchospa sm. levothyroxi 2020-04 Yes 137ug Take 137 U nivers ne 137 mcg 1-10 mcg by ity of tablet 17:38: mouth [place] 09 every Medical other day. Branch morpHINE 2020-04- Yes 4mg 4 mg, Slow Un maddie injection 4 04-10 IV Push, ity of mg 07:00: 06:59 Q4HPRN, [place] 32 :32 Starting Medical on Sat Branch 02/08/21 at 0100, Until Patricia 02/09/21 at 0059, Routine, Break[place] gh pain hydrocortis 2020-04- Yes [id number] Apply to Univers one 1 % 1-10 11-16 affected ity of cream 00:00: 05:59 area(s) 2 [place] 00 :00 (two) Medical times Branch daily for 5 days. hydrocortis 2020-04- Yes [id number] Apply to Univers one 1 % 04-10 affected ity of cream 00:00: 05:59 area(s) 2 [place] 00 :00 (two) Medical times Branch daily for 5 days. aspirin 2020-04 Yes 81mg 81 mg, Univers chewable 04-09 Oral, ity of tablet 81 15:00: DAILY, [place] mg 00 First dose Medical on Sat02/07/21 at 0900, Until Discontinu ed, Routine simethicone 2020-04 Yes 80mg 80 mg, Univ ers (GAS RELIEF 04-09 Oral, ity of (SIMETHICON 13:04: Q6HPRN, Real as E)) 06 Starting Medical chewable on Sat tablet 80 02/07/21 at mg 0704, Until Discontinu ed, Routine, gas/abdomi nal pain dicyclomine 2020-04 Yes 20mg 20 mg, Univ ers (BENTYL) 04-09 Oral, ity of tablet 20 07:59: Q6HPRN, [place] mg 37 Starting Medical on Sat02/07/21 at 0159, Until Discontinu ed, Routine, Abdominal pain D5W 0.9% 2020-04 Yes 1000mL at 75 Univer s NaCl (NS) 1-09 mL/hr, ity of IV infusion 07:30: 1,000 mL, [place] 1,000 mL 00 IV Medical Infusion, Branch CONTINUOUS , Starting on Sat02/07/21 at 0130, Until Discontinu ed, Routine alum-mag 2020-04 Yes 30mL 30 mL, Univers hydroxide-s 04-09 Oral, ity of imeth 06:16: Q6HPRN, [place] (MAALOX 26 Starting Medical PLUS / on Sat Branch MAG-AL 02/07/21 at PLUS) 0016, 200-200-20 Until mg/5 mL Discontinu suspension ed, 30 mL Routine, Indigestio n aspirin 2020-04- No 325mg 325 mg, Unive rs tablet 325 04-09 Oral, ity of mg 06:00: 05:51 ONCE, 1 [place] 00 :00 dose, On Medical e Branch 02/07/21 at 0000, Routine nitroglycer 2020-04 Yes .4mg 0.4 mg, Uni vers in 04-09 Sublingual ity of (NITROSTAT) 04:03: , Q5MIN Real as sublingual 32 PRN, Medical tablet 0.4 Starting Branc h mg on [facility] 02/06/21 at 2203, Until Discontinu ed, Routine, Chest pain hydrocortis 2020-04 Yes Topical Uni vers one 1 % 04-08 (Apply To ity of cream 21:15: Affected [place] 00 Areas), Medical BID, First Branch dose on Sat02/06/21 at 1515, Until Discontinu ed, Routine diphenhydrA 2020-04 Yes 50mg 50 mg, Univ ers MINE 04-08 Oral, ity of (BENADRYL) 21:14: Q6HPRN, [place] tablet 50 31 Starting Medica l mg on Sat Branch 02/06/21 at 1514, Until Discontinu ed, Routine, Itching, Mild Rash escitalopra 2020-04 Yes 20mg 20 mg, Univ ers m oxalate 08 Oral, ity of (LEXAPRO) 15:00: DAILY, [place] tablet 20 00 First dose Medi julieta mg on Sat Branch 02/06/21 at 0900, Until Discontinu ed, Routine ARIPiprazol 2020-04 Yes 5mg 5 mg, [facility] rs e (ABILIFY) 08 Oral, ity of tablet 5 mg 15:00: DAILY, [place] 00 First dose Medical on Sat Branch 02/06/21 at 0900, Until Discontinu ed, Routine levothyroxi 2020-04 Yes 137ug 137 mcg, U nivers ne 08 Oral, ity of (SYNTHROID) 12:00: QAM-0600, [place] tablet 137 00 First dose Med ical mcg on Sat Branch 02/06/21 at 0600, Until Discontinu ed, Routine diphenhydrA 2020-04 No 12.5mg 12.5 mg, Univers MINE 04-08 1108 Slow IV ity of (BENADRYL) 05:15: 04:29 Push, [place] injection 00 :00 ONCE, 1 Medical 12.5 mg dose, On Branch 02/05/21 at 2315, Routine ondansetron 2020-04 Yes 4mg 4 mg, Slow Univers (ZOFRAN 1-08 IV Push, ity of (PF)) 04:10: Q6HPRN, [place] injection 4 59 Starting Medi julieta mg on [facility] 02/05/21 at 2210, Until Discontinu ed, Routine, Nausea and Vomiting (N/V) iopamidol 2020-04- No [id number] 100mL 100 mL, Univers (ISOVUE 04-08 Intravenou ity o f 370-500 mL) 03:53: 03:52 s, ONCE, 1 [place] injection 00 :00 dose, On Medica l 100 mL [facility] 02/05/21 at 2215, Routine ipratropium 2020-04 Yes 3mL 3 mL, Unive rs -albuteroL 08 Inhalation ity of (DUONEB) 03:00: , QID, [place] 0.5 mg-3 00 First dose Medic al mg(2.5 mg on [facility] base)/3 mL 02/05/21 at nebulizer 2100, solution 3 Until mL Discontinu ed, Routine sodium 2020-04 Yes 4mL 4 mL, Univers chloride 7% 08 Inhalation it y of (HYPER-GRIS) 03:00: , BID, [place] nebulizer 00 First dose Medi julieta solution 4 on [facility] mL 02/05/21 at 2100, Until Discontinu ed, Routine atorvastati 2020-04 Yes 80mg 80 mg, Univ ers n (LIPITOR) 1-08 Oral, QHS, it y of tablet 80 03:00: [place] mg 00 on Pending Sale To [facility] 02/05/21 at Branch 2100, Until Discontinu ed, Routine gabapentin 2020-04 Yes 300mg 300 mg, Uni vers (NEURONTIN) 1-08 Oral, TID, it y of capsule 300 02:00: First dose [place] mg 00 on Pending Sale To [facility] 02/05/21 at Branch 2000, Until Discontinu ed, Routine HYDROcodone 2020-04 Yes 1{tbl} 1 tablet, Univers -acetaminop 1-07 Oral, ity of hen (NORCO) 23:00: Q4HPRN, [place] 10-325 mg 22 Starting Medica l tablet 1 on [facility] tablet 02/05/21 at 1700, Until Discontinu ed, Routine, Pain (scale 4-6), Pain (scale 7-10) lipase-prot 2020-04 Yes 1{capsu 1 capsule, Univers ease-amylas - le} Oral, TID ity of e (CREON) 23:00: MEALS, [place] 12,000-38,0 00 First dose Me dical 00 -60,000 on [facility] unit 02/05/21 at capsule 1 1700, capsule Until Discontinu ed, Routine acetaminoph 2020-04 Yes 650mg 650 mg, Un maddie en 07 Oral, ity of (TYLENOL) 20:33: Q6HPRN, [place] tablet 650 41 Starting Medic al mg on [place] Branch 02/05/21 at 1433, Until Discontinu ed, Routine, Pain (scale 1-3) ferrous 2020-04 Yes 300mg Take 300 Unive rs sulfate 300 1-03 mg by ity of mg (60 mg 17:00: mouth 2 [place] iron)/5 mL 28 (two) Medical solution times [place] daily. atorvastati 2020-04 Yes 80mg Take 80 mg Univers n 80 mg 1-03 by mouth ity of tablet 17:00: at [place] [id number] bedtime. Medical Branch albuterol 2020-04 Yes 2.5mg Inhale 2.5 U nivers 2.5 mg /3 1-03 mg every 4 ity of mL (0.083 17:00: (four) [place] %) 28 hours as Medical nebulizer needed for Bran ch solution Wheezing, Shortness of Breath or Bronchospa sm. levothyroxi 2020-04 Yes 137ug Take 137 U nivers ne 137 mcg 1-03 mcg by ity of tablet 17:00: mouth [place] 28 every Medical other day. Branch ferrous 2020-04 Yes 300mg Take 300 Unive rs sulfate 300 1-03 mg by ity of mg (60 mg 17:00: mouth 2 [place] iron)/5 mL 28 (two) Medical solution times [place] daily. atorvastati 2020-04 Yes 80mg Take 80 mg Univers n 80 mg 1-03 by mouth ity of tablet 17:00: at [place] 28 bedtime. Medical Branch albuterol 2020-04 Yes 2.5mg Inhale 2.5 U nivers 2.5 mg /3 1-03 mg every 4 ity of mL (0.083 17:00: (four) [place] %) 28 hours as Medical nebulizer needed for Bran ch solution Wheezing, Shortness of Breath or Bronchospa sm. levothyroxi 2020-04 Yes 137ug Take 137 U nivers ne 137 mcg 1-03 mcg by ity of tablet 17:00: mouth [place] 28 every Medical other day. Branch clopidogreL 2020-04- No 75mg Take 75 mg Univers (PLAVIX) 75 -03 11-03 by mouth ity of mg tablet 12:38: 00:00 daily. [place] 52 :00 Medical Branch oxyCODONE 2020-04 Yes [id number] 10mg Take 1 Univer s CR 10 mg 12 1-03 tablet by ity of hr tablet 00:00: mouth [place] 00 every 12 Medical (twelve) Branch hours as needed for Pain. PRN Indication s: acute pain lipase-prot 2020-04 Yes [id number] 1{capsu Take 1 Univers ease-amylas 1-03 le} capsule by it y of e (CREON) 00:00: mouth 3 [place] 12,000-38,0 00 (three) Medic al 00 -60,000 times Branch unit daily with capsule meals. oxyCODONE 2020-04 Yes [id number] 10mg Take 1 Univer s CR 10 mg 12 1-03 tablet by ity of hr tablet 00:00: mouth [place] 00 every 12 Medical (twelve) Branch hours as needed for Pain. PRN Indication s: acute pain lipase-prot 2020-04 Yes [id number] 1{capsu Take 1 Univers ease-amylas 1-03 le} capsule by it y of e (CREON) 00:00: mouth 3 [place] 12,000-38,0 00 (three) Medic al 00 -60,000 times Branch unit daily with capsule meals. oxyCODONE 2020-04 Yes [id number] 10mg Take 1 Univer s CR 10 mg 12 1-03 tablet by ity of hr tablet 00:00: mouth [place] 00 every 12 Medical (twelve) Branch hours as needed for Pain. PRN Indication s: acute pain lipase-prot 2020-04 Yes [id number] 1{capsu Take 1 Univers ease-amylas 1-03 le} capsule by it y of e (CREON) 00:00: mouth 3 [place] 12,000-38,0 00 (three) Medic al 00 -60,000 times Branch unit daily with capsule meals. oxyCODONE 2020-04 Yes [id number] 10mg Take 1 Univer s CR 10 mg 12 03 tablet by ity of hr tablet 00:00: mouth [place] 00 every 12 Medical (twelve) Branch hours as needed for Pain. PRN Indication s: acute pain lipase-prot 2020-04 Yes [id number] 1{capsu Take 1 Univers ease-amylas 04-03 le} capsule by it y of e (CREON) 00:00: mouth 3 [place] 12,000-38,0 00 (three) Medic al 00 -60,000 times Branch unit daily with capsule meals. sulfamethox 2020-04- Yes [id number] 1{tbl} Take 1 Univers azole-trime 04-03 tablet by it y of thoprim 00:00: 05:59 mouth 2 [place] (BACTRIM 00 :00 (two) Medical DS) 800-160 times Branch mg per daily for tablet 7 days. sulfamethox 2020-04- Yes [id number] 1{tbl} Take 1 [facility] azole-trime 04-03 tablet by it y of thoprim 00:00: 05:59 mouth 2 [place] (BACTRIM 00 :00 (two) Medical DS) 800-160 times Branch mg per daily for tablet 7 days. sulfamethox 2020-04- No [id number] 1{tbl} Take 1 [facility] azole-trime 04-0307 tablet by it y of thoprim 00:00: 00:00 mouth 2 [place] (BACTRIM 00 :00 (two) Medical DS) 800-160 times Branch mg per daily for tablet 7 days. morpHINE 2020-04- No 2mg 2 mg, Slow Un m[place] injection 2 04-02 IV Push, ity of mg 17:55: 17:54 Q4HPRN, [place] 45 :45 Starting Medical on Sat Branch 01/31/21 at 1255, Until Sat02/01/21 at 1254, Routine, Pain (scale 7-10) phosphorus 2020-04 Yes 250mg 1 tablet Un m[place] (K PHOS 04-02 (250 mg), ity of NEUTRAL) 01:00: Oral, BID, [place] tablet 1 00 First dose Medic al tablet on [facility] 01/30/21 at 2000, Until Discontinu ed, Routine morpHINE 2020-04- No 2mg 2 mg, Slow Un m[place] injection 2 04-01 IV Push, ity of mg 14:18: 14:17 Q4HPRN, [place] 28 :28 Starting Medical on [facility] 01/30/21 at 0918, Until Sat01/31/21 at 0917, Routine, Pain (scale 7-10) vancomycin 2020-04 Yes 1250mg 1,250 mg, Univers 1250 mg in 04-01 IV ity of NS 250 mL 01:00: Infusion, Real as RTU IV 00 Q8H ABX, Medical Piggyback First dose Bran ch 1,250 mg on [place] 01/29/21 at 2000, Until Discontinu ed, Administer over 90 Minutes
Reason for Anti-Infec tive: Empiric Therapy for Suspected Infection< br>Empiric Therapy Site: Respirator y
Durat ion of therapy: 72 hours pantoprazol 2020-04 Yes 40mg 40 mg, Univ ers e 04-01 Slow IV ity of (PROTONIX) 00:45: Push, [place] injection 00 Q24H, Medical 40 mg First dose Branch on [place] 01/29/21 at 1945, Until Discontinu ed D5W 0.9% 2020-04- No IV Univers NaCl (NS) 1 04-01 Infusion, it y of L + KCL 40 00:45: 23:33 [place] 125 [place] mEq 00 :41 mL/hr, Medical CONTINUOUS Branch , Starting on [place] 01/29/21 at 1945, Until Sat01/30/21 at 1833, Routine morpHINE 2020-04- No 2mg 2 mg, Slow Un maddie injection 2 01-30 IV Push, ity of mg 11:33: 11:32 Q4HPRN, [place] 27 :27 Starting Medical on [facility] 01/29/21 at 0633, Until Sat01/30/21 at 0632, Routine, Pain (scale 7-10) atorvastati 2020-04 Yes 80mg 80 mg, Univ ers n (LIPITOR) 0 Oral, QHS, it y of tablet 80 02:00: First dose [place] mg 00 on [facility] Medical 01/28/21 Branch at 2100, Until Discontinu ed, Routine enoxaparin 2020-04 No 40mg 40 mg, Univ ers (LOVENOX) 001-29 Subcutaneo ity of injection 22:00: 04:54 us, DAILY, [place] 40 mg 00 :04 First dose Medical on [facility] Branch 01/28/21 at 1700, Until Discontinu ed, Routine diphenhydrA 2020-04 No 50mg 50 mg, Uni vers MINE 0-28 01- Slow IV ity of (BENADRYL) 15:30: 14:34 Push, [place] injection 00 :00 ONCE, 1 Medical 50 mg dose, On Branch [facility] 01/28/21 at 1030, Routine iopamidol 2020-04 No [id number] 100mL 100 mL, Univers (ISOVUE 0- Intravenou ity o f 370-500 mL) 14:55: 14:56 s, ONCE, 1 [place] injection 00 :00 dose, On Medica l 100 mL [facility] Branch 01/28/21 at 1015, Routine escitalopra 2020-04 Yes 20mg 20 mg, Univ ers m oxalate 0-30 Oral, ity of (LEXAPRO) 14:00: DAILY, [place] tablet 20 00 First dose Medi julieta mg on [facility] Branch 01/28/21 at 0900, Until Discontinu ed, Routine ARIPiprazol 2020-04 Yes 5mg 5 mg, Unive rs e (ABILIFY) 0-30 Oral, ity of tablet 5 mg 14:00: DAILY, [place] 00 First dose Medical on [facility] Branch 01/28/21 at 0900, Until Discontinu ed, Routine aspirin 2020-04 No 81mg 81 mg, Univers chewable 0- Oral, ity of tablet 81 14:00: 11:33 DAILY, [place] mg 00 :50 First dose Medical on [facility] Branch 01/28/21 at 0900, Until Discontinu ed, Routine clopidogreL 2020-04 No 75mg 75 mg, Uni vers (PLAVIX) 001-29 Oral, ity of tablet 75 14:00: 11:33 DAILY, [place] mg 00 :50 First dose Medical on [facility] Branch 01/28/21 at 0900, Until Discontinu ed, Routine NaCl 0.9% 2020-04- No 1000mL at 75 Univ ers (NS) IV 0-30 10-30 mL/hr, IV ity of infusion 14:00: 14:01 Infusion, Real as 1,000 mL 00 :00 ONCE, 1 Medical dose, On Branch 01/28/21 at 0900, Routine lipase-prot 2020-04 Yes 1{capsu 1 capsule, Univers ease-amylas 0-30 le} Oral, TID ity of e (CREON) 13:00: MEALS, [place] 12,000-38,0 00 First dose Me dical 00 -60,000 on [facility] unit 01/28/21 capsule 1 at 0800, capsule Until Discontinu ed, Routine gabapentin 2020-04 Yes 300mg 300 mg, Uni vers (NEURONTIN) 0-30 Oral, TID, it y of capsule 300 13:00: First dose [place] mg 00 on [facility] Medical 01/28/21 Branch at 0800, Until Discontinu ed, Routine ferrous 2020-04 Yes 300mg 300 mg, Univer s sulfate 300 0-30 Oral, BID, it y of mg (60 mg 13:00: First dose [place] iron)/5 mL 00 on [facility] Medical solution 01/28/21 Branch 300 mg at 0800, Until Discontinu ed, Routine ipratropium 2020-04 Yes 3mL 3 mL, Unive rs -albuteroL 0-30 Inhalation ity of (DUONEB) 12:48: , QIDPRN, [place] 0.5 mg-3 53 Starting Medical mg(2.5 mg on [facility] Branch base)/3 mL 01/28/21 nebulizer at 0748, solution 3 Until mL Discontinu ed, Routine, Wheezing, Shortness of Breath, Bronchospa sm, Chest tightness levothyroxi 2020-04 Yes 137ug 137 mcg, U nivers ne 0-30 Oral, ity of (SYNTHROID) 11:00: QAM-0600, [place] tablet 137 00 First dose Med ical mcg on [facility] Branch 01/28/21 at 0600, Until Discontinu ed, Routine nitroglycer 2020-04 Yes .4mg 0.4 mg, Uni vers in 0-30 Sublingual ity of (NITROSTAT) 09:10: , Q5MIN [place] sublingual 13 PRN, Medical tablet 0.4 Starting Branc h mg on [facility] 01/28/21 at 0410, Until Discontinu ed, Routine, Chest pain ondansetron 2020-04 Yes 4mg 4 mg, Slow Univers (ZOFRAN 0-30 IV Push, ity of (PF)) 09:09: Q6HPRN, [place] injection 4 46 Starting Medi julieta mg on [facility] Branch 01/28/21 at 0409, Until Discontinu ed, Routine, Nausea and Vomiting (N/V) morpHINE 2020-04- No 2mg 2 mg, Slow Un [place] injection 2 0-30 10-31 IV Push, ity of mg 09:09: 09:08 Q4HPRN, [place] 34 :34 Starting Medical on [facility] Branch 01/28/21 at 0409, Until 01/29/21 at 0408, Routine, Pain (scale 7-10) acetaminoph 2020-04 Yes 650mg 650 mg, Un maddie en 0-30 Oral, ity of (TYLENOL) 09:09: Q6HPRN, [place] tablet 650 24 Starting Medic al mg on [facility] Branch 01/28/21 at 0409, Until Discontinu ed, Routine, Pain (scale 1-3) dicyclomine 2020-04 Yes 20mg 20 mg, Univ ers (BENTYL) 0-30 Oral, PRN, ity o f tablet 20 09:03: Starting [place] mg 35 on [facility] Medical 01/28/21 Branch at 0403, Until Discontinu ed, Routine, Abdominal pain albuterol 2020-04 Yes 2.5mg 2.5 mg, Univ ers (PROVENTIL) 0-30 Inhalation it y of 2.5 mg /3 09:03: , Q4HPRN, Real as mL (0.083 14 Starting Medica l %) on [facility] Branch nebulizer 01/28/21 solution at 0403, 2.5 mg Until Discontinu ed, Routine, Wheezing, Shortness of Breath, Bronchospa sm FENTanyl PF 2020-04- No 50ug 50 mcg, Un maddie (SUBLIMAZE 0-30 10-30 Slow IV ity o f (PF)) 06:15: 05:36 Push, [place] injection 00 :00 ONCE, 1 Medical 50 mcg dose, On Branch 01/28/21 at 0115, Routine ondansetron 2020-04 No 4mg 4 mg, Slow Univers (ZOFRAN 0-30 10-30 IV Push, ity of (PF)) 05:35: 05:36 ONCE, 1 [place] injection 4 00 :00 dose, On Medi julieta mg Sat Branch 01/28/21 at 0045, KENIA clopidogreL 2020-04 Yes 75mg Take 75 mg Univers (PLAVIX) 75 0-30 by mouth ity of mg tablet 04:10: daily. [place] 41 Medical Branch ferrous 2020-04 Yes 300mg Take 300 Unive rs sulfate 300 0-30 mg by ity of mg (60 mg 04:10: mouth 2 [place] iron)/5 mL 41 (two) Medical solution times Branch daily. atorvastati 2020-04 Yes 80mg Take 80 mg Univers n 80 mg 0-30 by mouth ity of tablet 04:10: at [place] [address] bedtime. Medical Branch albuterol 2020-04 Yes 2.5mg Inhale 2.5 U nivers 2.5 mg /3 0-30 mg every 4 ity of mL (0.083 04:10: (four) [place] ) 41 hours as Medical nebulizer needed for Bran ch solution Wheezing, Shortness of Breath or Bronchospa sm. levothyroxi 2020-04 Yes 137ug Take 137 U nivers ne 137 mcg 0-30 mcg by ity of tablet 04:10: mouth [place] [address] every Medical other day. Branch dexamethaso 2020-04 No 10mg 10 mg, IV Univers ne 0-23 10-23 Push, ity of (DECADRON 11:00: 10:00 ONCE, 1 [place] PHOSPHATE) 00 :00 dose, On Medic al injection Sat Branch 10 mg 01/21/21 at 0600, STAT ondansetron 2020-04 No 4mg 4 mg, Slow Univers (ZOFRAN 0-23 10-23 IV Push, ity of (PF)) 10:30: 09:18 ONCE, 1 [place] injection 4 00 :00 dose, On Medi julieta mg Sat Branch 01/21/21 at 0530, Routine morpHINE 2020-04- No 4mg 4 mg, Slow Un maddie injection 4 0-23 10-23 IV Push, ity of mg 10:30: 09:19 ONCE, 1 [place] 00 :00 dose, On Medical Sat Branch 01/21/21 at 0530, STAT albuterol 2020-04 Yes 2.5mg 2.5 mg, Univ ers (PROVENTIL) 0-23 Inhalation it y of 2.5 mg /3 09:37: , Q6HPRN, Real as mL (0.083 37 Starting Medica l %) on [facility] Branch nebulizer 01/21/21 solution at 0437, 2.5 mg Until Discontinu ed, Routine, Shortness of Breath, Wheezing, Bronchospa sm clopidogreL 2020-04 Yes 75mg Take 75 mg Univers (PLAVIX) 75 0-10 by mouth ity of mg tablet 13:27: daily. [place] [address] Medical Branch ferrous 2020-04 Yes 300mg Take 300 Unive rs sulfate 300 0-10 mg by ity of mg (60 mg 13:27: mouth 2 [place] iron)/5 mL (two) Medical solution times [place] daily. atorvastati 2020-04 Yes 80mg Take 80 mg Univers n 80 mg 0-10 by mouth ity of tablet 13:27: at [place] [address] bedtime. Medical Branch albuterol 2020-04 Yes 2.5mg Inhale 2.5 U nivers 2.5 mg /3 0-10 mg every 4 ity of mL (0.083 13:27: (four) [place] %) 21 hours as Medical nebulizer needed for Bran ch solution Wheezing, Shortness of Breath or Bronchospa sm. levothyroxi 2020-04 Yes 137ug Take 137 U nivers ne 137 mcg 0-10 mcg by ity of tablet 13:27: mouth [place] [address] every Medical other day. Branch clopidogreL 2020-04 Yes 75mg Take 75 mg Univers (PLAVIX) 75 0-10 by mouth ity of mg tablet 13:27: daily. [place] [address] Medical Branch ferrous 2020-04 Yes 300mg Take 300 Unive rs sulfate 300 0-10 mg by ity of mg (60 mg 13:27: mouth 2 [place] iron)/5 mL 21 (two) Medical solution times [place] daily. atorvastati 2020-04 Yes 80mg Take 80 mg Univers n 80 mg 0-10 by mouth ity of tablet 13:27: at [place] 21 bedtime. Medical Branch albuterol 2020-04 Yes 2.5mg Inhale 2.5 U nivers 2.5 mg /3 0-10 mg every 4 ity of mL (0.083 13:27: (four) [place] %) 21 hours as Medical nebulizer needed for Bran ch solution Wheezing, Shortness of Breath or Bronchospa sm. levothyroxi 2020-04 Yes 137ug Take 137 U nivers ne 137 mcg 0-10 mcg by ity of tablet 13:27: mouth [place] 21 every Medical other day. Branch clopidogreL 2020-04 Yes 75mg Take 75 mg Univers (PLAVIX) 75 0-10 by mouth ity of mg tablet 13:27: daily. Medical Branch ferrous 2020-04 Yes 300mg Take 300 Unive rs sulfate 300 0-10 mg by ity of mg (60 mg 13:27: mouth 2 [place] iron)/5 mL 21 (two) Medical solution times [place] daily. atorvastati 2020-04 Yes 80mg Take 80 mg Univers n 80 mg 0-10 by mouth ity of tablet 13:27: at [place] [address] bedtime. Medical Branch albuterol 2020-04 Yes 2.5mg Inhale 2.5 U nivers 2.5 mg /3 0-10 mg every 4 ity of mL (0.083 13:27: (four) [place] %) 21 hours as Medical nebulizer needed for Bran ch solution Wheezing, Shortness of Breath or Bronchospa sm. levothyroxi 2020-04 Yes 137ug Take 137 U nivers ne 137 mcg 0-10 mcg by ity of tablet 13:27: mouth [place] 21 every Medical other day. Branch clopidogreL 2020-04 Yes 75mg Take 75 mg Univers (PLAVIX) 75 0-10 by mouth ity of mg tablet 13:27: daily. [place] [address] Medical Branch ferrous 2020-04 Yes 300mg Take 300 Unive rs sulfate 300 0-10 mg by ity of mg (60 mg 13:27: mouth 2 [place] iron)/5 mL 21 (two) Medical solution times [place] daily. atorvastati 2020-04 Yes 80mg Take 80 mg Univers n 80 mg 0-10 by mouth ity of tablet 13:27: at [place] 21 bedtime. Medical Branch albuterol 2020-04 Yes 2.5mg Inhale 2.5 U nivers 2.5 mg /3 0-10 mg every 4 ity of mL (0.083 13:27: (four) [place] %) 21 hours as Medical nebulizer needed for Bran ch solution Wheezing, Shortness of Breath or Bronchospa sm. levothyroxi 2020-04 Yes 137ug Take 137 U nivers ne 137 mcg 0-10 mcg by ity of tablet 13:27: mouth [place] 21 every Medical other day. Branch ARIPiprazol 2020-04 Yes [id number] 5mg Take 1 Univers e 5 mg 0-10 tablet by ity of tablet 00:00: mouth [place] 00 daily. Medical Branch escitalopra 2020-04 Yes [id number] 20mg Take 1 Univers m oxalate 0-10 tablet by ity o f 20 mg 00:00: mouth [place] tablet 00 daily. Medical Branch ARIPiprazol 2020-04 Yes [id number] 5mg Take 1 Univers e 5 mg 0-10 tablet by ity of tablet 00:00: mouth [place] 00 daily. Medical Branch escitalopra 2020-04 Yes [id number] 20mg Take 1 Univers m oxalate 0-10 tablet by ity o f 20 mg 00:00: mouth [place] tablet 00 daily. Medical Branch oxyCODONE 2020-04 Yes [id number] 10mg Take 1 Univer s CR 10 mg 12 0-10 tablet by ity of hr tablet 00:00: mouth [place] 00 every 12 Medical (twelve) Branch hours. Indication s: acute pain traMADoL 2020-04 Yes [id number] 100mg Take 100 Univ ers 100 mg Tab 0-10 mg by ity of 00:00: mouth [place] 00 every 6 Medical (six) Branch hours as needed for Pain (scale 4-6). Indication s: acute pain ARIPiprazol 2020-04 Yes [id number] 5mg Take 1 Univers e 5 mg 0-10 tablet by ity of tablet 00:00: mouth [place] 00 daily. Medical Branch escitalopra 2020-04 Yes [id number] 20mg Take 1 Univers m oxalate 0-10 tablet by ity o f 20 mg 00:00: mouth [place] tablet 00 daily. Medical Branch oxyCODONE 2020-04 Yes [id number] 10mg Take 1 Univer s CR 10 mg 12 0-10 tablet by ity of hr tablet 00:00: mouth [place] 00 every 12 Medical (twelve) Branch hours. Indication s: acute pain traMADoL 2020-04 Yes [id number] 100mg Take 100 Univ ers 100 mg Tab 0-10 mg by ity of 00:00: mouth [place] 00 every 6 Medical (six) Branch hours as needed for Pain (scale 4-6). Indication s: acute pain ARIPiprazol 2020-04 Yes [id number] 5mg Take 1 Univers e 5 mg 0-10 tablet by ity of tablet 00:00: mouth [place] 00 daily. Medical Branch escitalopra 2020-04 Yes [id number] 20mg Take 1 Univers m oxalate 0-10 tablet by ity o f 20 mg 00:00: mouth [place] tablet 00 daily. Medical Branch oxyCODONE 2020-04 Yes [id number] 10mg Take 1 Univer s CR 10 mg 12 0-10 tablet by ity of hr tablet 00:00: mouth [place] 00 every 12 Medical (twelve) Branch hours. Indication s: acute pain traMADoL 2020-04 Yes [id number] 100mg Take 100 Univ ers 100 mg Tab 0-10 mg by ity of 00:00: mouth [place] 00 every 6 Medical (six) Branch hours as needed for Pain (scale 4-6). Indication s: acute pain ARIPiprazol 2020-04 Yes [id number] 5mg Take 1 Univers e 5 mg 0-10 tablet by ity of tablet 00:00: mouth [place] 00 daily. Medical Branch escitalopra 2020-04 Yes [id number] 20mg Take 1 Univers m oxalate 0-10 tablet by ity o f 20 mg 00:00: mouth [place] tablet 00 daily. Medical Branch oxyCODONE 2020-04 Yes [id number] 10mg Take 1 Univer s CR 10 mg 12 0-10 tablet by ity of hr tablet 00:00: mouth [place] 00 every 12 Medical (twelve) Branch hours. Indication s: acute pain ARIPiprazol 2020-04 Yes [id number] 5mg Take 1 Univers e 5 mg 0-10 tablet by ity of tablet 00:00: mouth [place] 00 daily. Medical Branch escitalopra 2020-04 Yes [id number] 20mg Take 1 Univers m oxalate 0-10 tablet by ity o f 20 mg 00:00: mouth [place] tablet 00 daily. Medical Branch ARIPiprazol 2020-04 Yes [id number] 5mg Take 1 Univers e 5 mg 0-10 tablet by ity of tablet 00:00: mouth [place] 00 daily. Medical Branch escitalopra 2020-04 Yes [id number] 20mg Take 1 Univers m oxalate 0-10 tablet by ity o f 20 mg 00:00: mouth [place] tablet 00 daily. Medical Branch ARIPiprazol 2020-04 Yes [id number] 5mg Take 1 Univers e 5 mg 0-10 tablet by ity of tablet 00:00: mouth [place] 00 daily. Medical Branch escitalopra 2020-04 Yes [id number] 20mg Take 1 Univers m oxalate 0-10 tablet by ity o f 20 mg 00:00: mouth [place] tablet 00 daily. Medical Branch ARIPiprazol 2020-04 Yes [id number] 5mg Take 1 Univers e 5 mg 0-10 tablet by ity of tablet 00:00: mouth [place] 00 daily. Medical Branch escitalopra 2020-04 Yes [id number] 20mg Take 1 Univers m oxalate 0-10 tablet by ity o f 20 mg 00:00: mouth [place] tablet 00 daily. Medical Branch oxyCODONE 2020-04- No [id number] 10mg Take 1 Unive rs CR 10 mg 12 0-10 11-03 tablet by it y of hr tablet 00:00: 00:00 mouth [place] 00 :00 every 12 Medical (twelve) Branch hours. Indication s: acute pain traMADoL 2020-04- No [id number] 100mg Take 100 Uni vers 100 mg Tab 0-10 10-30 mg by ity of 00:00: 00:00 mouth [place] 00 :00 every 6 Medical (six) Branch hours as needed for Pain (scale 4-6). Indication s: acute pain gabapentin 2020-04 Yes [id number] 300mg Take 1 Univers 300 mg 0-09 capsule by ity of capsule 00:00: mouth 3 [place] 00 (three) Medical times Branch daily. metoclopram 2020-04 Yes [id number] 5mg Take 1 Univers aretha HCl 5 0-09 tablet by ity o f mg tablet 00:00: mouth [place] 00 before Medical meals and Branch at bedtime. dicyclomine 2020-04 Yes [id number] 20mg Take 1 Univers 20 mg 0-09 tablet by ity of tablet 00:00: mouth as [place] 00 needed for Medical Abdominal Branch pain. gabapentin 2020-04 Yes [id number] 300mg Take 1 Univers 300 mg 0-09 capsule by ity of capsule 00:00: mouth 3 [place] 00 (three) Medical times Branch daily. metoclopram 2020-04 Yes [id number] 5mg Take 1 Univers aretha HCl 5 0-09 tablet by ity o f mg tablet 00:00: mouth [place] 00 before Medical meals and Branch at bedtime. dicyclomine 2020-04 Yes [id number] 20mg Take 1 Univers 20 mg 0-09 tablet by ity of tablet 00:00: mouth as [place] 00 needed for Medical Abdominal Branch pain. gabapentin 2020-04 Yes [id number] 300mg Take 1 Univers 300 mg 0-09 capsule by ity of capsule 00:00: mouth 3 00 (three) Medical times Branch daily. metoclopram 2020-04 Yes [id number] 5mg Take 1 Univers aretha HCl 5 0-09 tablet by ity o f mg tablet 00:00: mouth [place] 00 before Medical meals and Branch at bedtime. dicyclomine 2020-04 Yes [id number] 20mg Take 1 Univers 20 mg 0-09 tablet by ity of tablet 00:00: mouth as [place] 00 needed for Medical Abdominal Branch pain. gabapentin 2020-04 Yes [id number] 300mg Take 1 Univers 300 mg 0-09 capsule by ity of capsule 00:00: mouth 3 [place] 00 (three) Medical times Branch daily. metoclopram 2020-04 Yes [id number] 5mg Take 1 [facility] aretha HCl 5 0-09 tablet by ity o f mg tablet 00:00: mouth [place] 00 before Medical meals and Branch at bedtime. dicyclomine 2020-04 Yes [id number] 20mg Take 1 Univers 20 mg 0-09 tablet by ity of tablet 00:00: mouth as [place] 00 needed for Medical Abdominal Branch pain. gabapentin 2020-04 Yes [id number] 300mg Take 1 [facility] 300 mg 0-09 capsule by ity of capsule 00:00: mouth 3 [place] 00 (three) Medical times Branch daily. dicyclomine 2020-04 Yes [id number] 20mg Take 1 Univers 20 mg 0-09 tablet by ity of tablet 00:00: mouth as [place] 00 needed for Medical Abdominal Branch pain. gabapentin 2020-04 Yes [id number] 300mg Take 1 [facility] 300 mg 0-09 capsule by ity of capsule 00:00: mouth 3 [place] 00 (three) Medical times Branch daily. dicyclomine 2020-04 Yes [id number] 20mg Take 1 Univers 20 mg 0-09 tablet by ity of tablet 00:00: mouth as [place] 00 needed for Medical Abdominal Branch pain. gabapentin 2020-04 Yes [id number] 300mg Take 1 [facility] 300 mg 0-09 capsule by ity of capsule 00:00: mouth 3 [place] 00 (three) Medical times Branch daily. dicyclomine 2020-04 Yes [id number] 20mg Take 1 Univers 20 mg 0-09 tablet by ity of tablet 00:00: mouth as [place] 00 needed for Medical Abdominal Branch pain. gabapentin 2020-04 Yes [id number] 300mg Take 1 Univers 300 mg 0-09 capsule by ity of capsule 00:00: mouth 3 [place] 00 (three) Medical times Branch daily. dicyclomine 2020-04 Yes [id number] 20mg Take 1 Univers 20 mg 0-09 tablet by ity of tablet 00:00: mouth as [place] 00 needed for Medical Abdominal Branch pain. gabapentin 2020-04 Yes [id number] 300mg Take 1 [facility] 300 mg 0-09 capsule by ity of capsule 00:00: mouth 3 [place] 00 (three) Medical times Branch daily. dicyclomine 2020-04 Yes [id number] 20mg Take 1 Univers 20 mg 0-09 tablet by ity of tablet 00:00: mouth as [place] 00 needed for Medical Abdominal Branch pain. metoclopram 2020-04- No [id number] 5mg Take 1 Univers aretha HCl 5 0-09 10-30 tablet by ity of mg tablet 00:00: 00:00 mouth [place] 00 :00 before Medical meals and Branch at bedtime. traMADoL 2020-04- Yes [id number] 100mg Take 100 Uni vers 100 mg Tab 0-09 10-17 mg by ity of 00:00: 04:59 mouth [place] 00 :00 every 6 Medical (six) Branch hours as needed for Pain (scale 4-6) for up to 7 days. Indication s: acute pain oxyCODONE 2021-1 2021- Yes [id number] 10mg Take 1 Unive rs CR 10 mg 12 0-09 10-15 tablet by it y of hr tablet 00:00: 04:59 mouth [place] 00 :00 every 12 Medical (twelve) Branch hours for 5 days. Indication s: acute pain traMADoL 2020-04 Yes 100mg 100 mg, Unive rs (ULTRAM) 0-08 Oral, ity of tablet 100 22:00: Q6HPRN, [place] mg 35 Starting Medical on Sat01/06/21 at 1700, Until Discontinu ed, Routine, Pain (scale 4-6) morpHINE 2020-04 Yes 2mg 2 mg, Slow Uni vers injection 2 0-08 IV Push, ity of mg 21:59: Q3HPRN, [place] 49 Starting Medical on Sat01/06/21 at 1659, Until Discontinu ed, Routine, Pain (scale 7-10) gabapentin 2020-04 Yes 300mg 300 mg, Uni vers (NEURONTIN) 0-08 Oral, TID, it y of capsule 300 19:00: First dose [place] mg 00 (after Medical last Branch modificati on) on Sat01/06/21 at 1400, Until Discontinu ed, Routine gabapentin 2020-04 Yes 300mg 300 mg, Uni vers (NEURONTIN) 0-08 Oral, TID, it y of capsule 300 19:00: First dose [place] mg 00 (after Medical last Branch modificati on) on Sat01/06/21 at 1400, Until Discontinu ed, Routine oxyCODONE 2020-04 Yes 10mg 10 mg, Univer s CR 0-08 Oral, ity of (oxyCONTIN 13:15: Q12H, [place] CR) 12 hr 00 First dose Medi julieta tablet 10 on Sat Branch mg 01/06/21 at 0815, Until Discontinu ed, Routine
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 : PATRICK NUÑEZ traMADoL 2020-04 Yes 100mg 100 mg, Unive rs (ULTRAM) 0-08 Oral, ity of tablet 100 13:10: Q6HPRN, [place] mg 19 Starting Medical on Sat01/06/21 at 0810, Until Discontinu ed, Routine, Pain (scale 4-6), Pain (scale 7-10) levothyroxi 2020-04 Yes 137ug 137 mcg, U nivers ne 0-08 Oral, ity of (SYNTHROID) 11:00: Q48H, [place] tablet 137 00 First dose Med ical mcg on Sat01/06/21 at 0600, Until Discontinu ed, Routine levothyroxi 2020-04 Yes 137ug 137 mcg, U nivers ne 0-08 Oral, ity of (SYNTHROID) 11:00: Q48H, [place] tablet 137 00 First dose Med ical mcg on Sat01/06/21 at 0600, Until Discontinu ed, Routine omeprazole 2020-04 Yes 40mg 40 mg, Unive rs (FIRST-OMEP 0-08 Oral, BID, it y of RAZOLE) 2 01:00: First dose [place] mg/mL oral 00 on Sat Medical suspension 01/05/21 at [facility] 40 mg 1999, Until Discontinu ed, Routine omeprazole 2020-04 Yes 40mg 40 mg, Unive rs (FIRST-OMEP 0-08 Oral, BID, it y of RAZOLE) 2 01:00: First dose [place] mg/mL oral 00 on Sat Medical suspension 01/05/21 at [facility] 40 mg 1999, Until Discontinu ed, Routine D5W 0.45% 2020-04 Yes IV Univers NaCl 0-07 Infusion, ity of (1/2NS) 1 L 21:15: at 100 [place] + KCL 20 00 mL/hr, Medical mEq CONTINUOUS Branch , Starting on Sat01/05/21 at 1615, Until Discontinu ed, Routine D5W 0.45% 2020-04 Yes IV Univers NaCl 0-07 Infusion, ity of (1/2NS) 1 L 21:15: at 100 [place] + KCL 20 00 mL/hr, Medical mEq CONTINUOUS Branch , Starting on Sat01/05/21 at 1615, Until Discontinu ed, Routine ARIPiprazol 2020-04 Yes 5mg 5 mg, Unive rs e (ABILIFY) 0-07 Oral, ity of tablet 5 mg 14:00: DAILY, [place] 00 First dose Medical on [facility] 01/05/21 at 0900, Until Discontinu ed, Routine escitalopra 2020-04 Yes 20mg 20 mg, Univ ers m oxalate 0-07 Oral, ity of (LEXAPRO) 14:00: DAILY, [place] tablet 20 00 First dose Medi julieta mg on [facility] 01/05/21 at 0900, Until Discontinu ed, Routine aspirin 2020-04 Yes 81mg 81 mg, Univers chewable 0-07 Oral, ity of tablet 81 14:00: DAILY, [place] mg 00 First dose Medical on [facility] 01/05/21 at 0900, Until Discontinu ed, Routine ARIPiprazol 2020-04 Yes 5mg 5 mg, Unive rs e (ABILIFY) 0-07 Oral, ity of tablet 5 mg 14:00: DAILY, [place] 00 First dose Medical on [facility] 01/05/21 at 0900, Until Discontinu ed, Routine escitalopra 2020-04 Yes 20mg 20 mg, Univ ers m oxalate 0-07 Oral, ity of (LEXAPRO) 14:00: DAILY, [place] tablet 20 00 First dose Medi julieta mg on [facility] 01/05/21 at 0900, Until Discontinu ed, Routine aspirin 2020-04 Yes 81mg 81 mg, Univers chewable 0-07 Oral, ity of tablet 81 14:00: DAILY, [place] mg 00 First dose Medical on [facility] 01/05/21 at 0900, Until Discontinu ed, Routine lipase-prot 2020-04 Yes 1{capsu 1 capsule, Univers ease-amylas 0-07 le} Oral, TID ity of e (CREON) 13:00: MEALS, [place] 12,000-38,0 00 First dose Me dical 00 -60,000 on [facility] unit 01/05/21 at capsule 1 0800, capsule Until Discontinu ed, Routine lipase-prot 2020-04 Yes 1{capsu 1 capsule, Univers ease-amylas 0-07 le} Oral, TID ity of e (CREON) 13:00: MEALS, [place] 12,000-38,0 00 First dose Me dical 00 -60,000 on [place] [facility] unit 01/05/21 at capsule 1 0800, capsule Until Discontinu ed, Routine levothyroxi 2020-04 Yes 125ug 125 mcg, U nivers ne 0-07 Oral, ity of (SYNTHROID) 11:00: Q48H, [place] tablet 125 00 First dose Med ical mcg (after Branch last modificati on) on [place] 01/05/21 at 0600, Until Discontinu ed, Routine levothyroxi 2020-04 Yes 125ug 125 mcg, U nivers ne 0-07 Oral, ity of (SYNTHROID) 11:00: Q48H, [place] tablet 125 00 First dose Med ical mcg (after Branch last modificati on) on [place] 01/05/21 at 0600, Until Discontinu ed, Routine NaCl 0.9% 2020-04 500mL at 999 Univ ers (NS) bolus 0-07 10-07 mL/hr, 500 it y of infusion 07:30: 06:33 mL, IV [place] 500 mL 00 :00 Piggyback, Medical ONCE, 1 Branch dose, On [facility] 01/05/21 at 0230, STAT nicotine 2020-04 Yes 1{patch 1 Patch, Un maddie (NICODERM) 0-07 } Topical, ity o f 14 mg/24 hr 02:00: Administer [place] patch 1 00 over 24 Medical Patch Hours, Branch Q24H, First dose on 01/04/21 at 2100, Until Discontinu ed, Routine metoclopram 2020-04 Yes 5mg 5 mg, Unive rs aretha HCl 0-07 Oral, ity of (REGLAN) 02:00: AC+HS, [place] tablet 5 mg 00 First dose Me dical on Sat Branch 01/04/21 at 2100, Until Discontinu ed, Routine atorvastati 2020-04 Yes 80mg 80 mg, Univ ers n (LIPITOR) 0-07 Oral, QHS, it y of tablet 80 02:00: First dose [place] mg 00 on [facility] Medical 01/04/21 at Branch 2100, Until Discontinu ed, Routine nicotine 2020-04 Yes 1{patch 1 Patch, Un maddie (NICODERM) 0-07 } Topical, ity o f 14 mg/24 hr 02:00: Administer [place] patch 1 00 over 24 Medical Patch Hours, Branch Q24H, First dose on Sat01/04/21 at 2100, Until Discontinu ed, Routine metoclopram 2020-04 Yes 5mg 5 mg, Unive rs aretha HCl 0-07 Oral, ity of (REGLAN) 02:00: AC+HS, [place] tablet 5 mg 00 First dose Me dical on Sat Branch 01/04/21 at 2100, Until Discontinu ed, Routine atorvastati 2020-04 Yes 80mg 80 mg, Univ ers n (LIPITOR) 0-07 Oral, QHS, it y of tablet 80 02:00: First dose [place] mg 00 on Sat Medical 01/04/21 at Branch 2100, Until Discontinu ed, Routine morpHINE 2020-04 No 2mg 2 mg, Slow Un maddie injection 2 0-07 10-08 IV Push, ity of mg 01:25: 13:11 Q3HPRN, [place] 47 :00 Starting Medical on Sat Branch 01/04/21 at 5, Until Sat01/06/21 at 0811, Routine, Pain (scale 4-6) HYDROcodone 2020-04- No 4647 1{tbl} 1 tablet, Univers -acetaminop 0-07 10-08 Oral, ity of hen (NORCO) 01:24: 13:11 Q6HPRN, [place] 10-325 mg 48 :00 Starting Medica l tablet 1 on Sat Branch tablet 01/04/21 at 2024, Until Sat01/06/21 at 0811, Routine, Pain (scale 7-10) ferrous 2020-04 Yes 300mg 300 mg, Univer s sulfate 300 0-07 Oral, BID, it y of mg (60 mg 01:00: First dose [place] iron)/5 mL 00 on Sat Medical solution 01/04/21 at Branc h 300 mg 2000, Until Discontinu ed, Routine ferrous 2020-04 Yes 300mg 300 mg, Univer s sulfate 300 0-07 Oral, BID, it y of mg (60 mg 01:00: First dose [place] iron)/5 mL 00 on Sat Medical solution 01/04/21 at Branc h 300 mg 2000, Until Discontinu ed, Routine gabapentin 2021-1 2021- No 100mg 100 mg, Un maddie (NEURONTIN) 008 Oral, QID, i ty of capsule 100 01:00: 15:07 First dose [place] mg 00 :59 on [facility] 01/04/21 at [place] 1999, Until Discontinu ed, Routine dicyclomine 2020-04 Yes 20mg 20 mg, [facility] ers (BENTYL) 0-07 Oral, PRN, ity o f tablet 20 00:58: [place] mg 42 on [facility] 01/04/21 at [place] 1957, Until Discontinu ed, Routine, Abdominal pain dicyclomine 2020-04 Yes 20mg 20 mg, [facility] ers (BENTYL) 0-07 Oral, PRN, ity o f tablet 20 00:58: Starting [place] mg 42 on [facility] 01/04/21 at [place] 1957, Until Discontinu ed, Routine, Abdominal pain albuterol 2020-04 Yes 2.5mg 2.5 mg, [facility] ers (PROVENTIL) 0-07 Inhalation it y of 2.5 mg /3 00:50: , Q4HPRN, Real as mL (0.083 11 Starting Medica l %) on [facility] nebulizer 01/04/21 at solution 1950, 2.5 mg Until Discontinu ed, Routine, Wheezing, Shortness of Breath, Bronchospa sm albuterol 2020-04 Yes 2.5mg 2.5 mg, [facility] ers (PROVENTIL) 0-07 Inhalation it y of 2.5 mg /3 00:50: , Q4HPRN, Real as mL (0.083 11 Starting Medica l %) on [facility] nebulizer 01/04/21 at solution 1950, 2.5 mg Until Discontinu ed, Routine, Wheezing, Shortness of Breath, Bronchospa sm iopamidol 2020-04- No [id number] 100mL 100 mL, Univers (ISOVUE 001-05 Intravenou ity o f 300-500 mL) 00:15: 00:23 s, ONCE, 1 [place] injection 00 :00 dose, On Medica l 100 mL [facility] 01/04/21 at 1915, Routine diphenhydrA 2020-04- No 25mg 25 mg, Uni vers MINE 0- Slow IV ity of (BENADRYL) 00:00: 23:23 Push, [place] injection 00 :00 ONCE, 1 Medical 25 mg dose, On Branch Sat01/04/21 at 1900, Routine pantoprazol 2020-04- No 40mg 40 mg, Uni vers e 0-06 10-07 Slow IV ity of (PROTONIX) 23:00: 21:07 Push, [place] injection 00 :49 Q24H, 3 Medical 40 mg doses, Branch First dose on Sat01/04/21 at 1800, Last dose on Sat01/06/21 at 1800 D5W 0.45% 2020-04- No IV Univers NaCl 0-06 10-07 Infusion, ity of (1/2NS) 1 L 22:45: 21:07 at 125 Real as + KCL 20 00 :50 mL/hr, Medical mEq CONTINUOUS Branch , Starting on Sat01/04/21 at 1745, Until [place] 01/05/21 at 1607, Routine NaCl 0.9% 2020-04- No 1000mL at 999 Uni vers (NS) bolus 0-06 10-07 mL/hr, ity of infusion 22:37: 00:39 1,000 mL, Real as 1,000 mL 00 :00 IV Medical Piggyback, Branch ONCE, 1 dose, On Sat01/04/21 at 1745, STAT morpHINE 2020-04- No 2mg 2 mg, Slow Un maddie injection 2 006 -06 IV Push, ity of mg 22:37: 23:23 ONCE, 1 [place] 00 :00 dose, On Medical Wed Branch 01/04/21 at 1745, Routine ondansetron 2020-04 Yes 4mg 4 mg, Slow Univers (ZOFRAN 0-06 IV Push, ity of (PF)) 22:36: Administer [place] injection 4 15 over 15 Medic al mg Minutes, Branch Q8HPRN, Starting on Sat01/04/21 at 1736, Until Discontinu ed, Routine, Nausea and Vomiting (N/V) ondansetron 2020-04 Yes 4mg 4 mg, Slow Univers (ZOFRAN 0-06 IV Push, ity of (PF)) 22:36: Administer [place] injection 4 15 over 15 Medic al mg Minutes, Branch Q8HPRN, Starting on Sat01/04/21 at 1736, Until Discontinu ed, Routine, Nausea and Vomiting (N/V) ferrous 2020-04 Yes 300mg Take 300 Unive rs sulfate 300 0-06 mg by ity of mg (60 mg 19:53: mouth 2 [place] iron)/5 mL 14 (two) Medical solution times Branch daily. atorvastati 2020-04 Yes 80mg Take 80 mg Univers n 80 mg 0-06 by mouth ity of tablet 19:53: at [place] 14 bedtime. Medical Branch albuterol 2020-04 Yes 2.5mg Inhale 2.5 U nivers 2.5 mg /3 0-06 mg every 4 ity of mL (0.083 19:53: (four) [place] %) 14 hours as Medical nebulizer needed for Bran ch solution Wheezing, Shortness of Breath or Bronchospa sm. levothyroxi 2020-04 Yes 137ug Take 137 U nivers ne 137 mcg 0-06 mcg by ity of tablet 19:53: mouth [place] 14 every Medical other day. Branch morpHINE 2020-04- No 4mg 4 mg, Slow Un maddie injection 4 0-06 10-06 IV Push, ity of mg 19:46: 20:05 ONCE, 1 [place] 00 :00 dose, On Medical Wed Branch 01/04/21 at 1500, STAT ondansetron 2020-04- No 4mg 4 mg, Slow Univers (ZOFRAN 0-06 10-06 IV Push, ity of (PF)) 19:45: 18:42 ONCE, 1 [place] injection 4 00 :00 dose, On Medi julieta mg Wed Branch 01/04/21 at 1445, KENIA morpHINE 2020-04- No 4mg 4 mg, Slow Un maddie injection 4 0-06 10-06 IV Push, ity of mg 19:45: 18:44 ONCE, 1 [place] 00 :00 dose, On Medical Wed Branch 01/04/21 at 1445, STAT clopidogreL 2020-04 Yes 75mg Take 75 mg Univers (PLAVIX) 75 0-06 by mouth ity of mg tablet 19:42: daily. [place] 39 Medical Branch pantoprazol 2020- Yes [id number] 20mg Take 1 Univers e 20 mg EC 12-23 10-25 tablet by ity of tablet 00:00: 04:59 mouth [place] 00 :00 daily for Medical 30 days. Branch pantoprazol 2020- Yes [id number] 20mg Take 1 Univers e 20 mg EC 9-24 10-25 tablet by ity of tablet 00:00: 04:59 mouth [place] 00 :00 daily for Medical 30 days. Branch pantoprazol 2020- Yes [id number] 20mg Take 1 Univers e 20 mg EC 9-24 10-25 tablet by ity of tablet 00:00: 04:59 mouth [place] 00 :00 daily for Medical 30 days. Branch pantoprazol 2020- Yes [id number] 20mg Take 1 Univers e 20 mg EC 9-24 10-25 tablet by ity of tablet 00:00: 04:59 mouth [place] 00 :00 daily for Medical 30 days. Branch pantoprazol 2020- Yes [id number] 20mg Take 1 Univers e 20 mg EC 9-24 10-25 tablet by ity of tablet 00:00: 04:59 mouth [place] 00 :00 daily for Medical 30 days. Branch pantoprazol 2020- Yes [id number] 20mg Take 1 Univers e 20 mg EC 9-24 10-25 tablet by ity of tablet 00:00: 04:59 mouth [place] 00 :00 daily for Medical 30 days. Branch pantoprazol 2020- Yes [id number] 20mg Take 1 Univers e 20 mg EC 9-24 10-25 tablet by ity of tablet 00:00: 04:59 mouth [place] 00 :00 daily for Medical 30 days. Branch pantoprazol 2020- Yes [id number] 20mg Take 1 Univers e 20 mg EC 9-24 10-25 tablet by ity of tablet 00:00: 04:59 mouth [place] 00 :00 daily for Medical 30 days. Branch clopidogreL Yes 75mg Take 75 mg Univers (PLAVIX) 75 9-23 by mouth ity of mg tablet 14:05: daily. [place] 38 Medical Branch ferrous Yes 300mg Take 300 Unive rs sulfate 300 9-23 mg by ity of mg (60 mg 14:05: mouth 2 [place] iron)/5 mL 38 (two) Medical solution times Branch daily. atorvastati Yes 80mg Take 80 mg Univers n 80 mg 9-23 by mouth ity of tablet 14:05: at [place] [address] bedtime. Medical Branch albuterol Yes 2.5mg Inhale 2.5 U nivers 2.5 mg /3 9-23 mg every 4 ity of mL (0.083 14:05: (four) [place] %) 38 hours as Medical nebulizer needed for Bran ch solution Wheezing, Shortness of Breath or Bronchospa sm. levothyroxi Yes 137ug Take 137 U nivers ne 137 mcg 9-23 mcg by ity of tablet 14:05: mouth [place] [address] every Medical other day. Branch clopidogreL Yes 75mg Take 75 mg Univers (PLAVIX) 75 9-23 by mouth ity of mg tablet 14:05: daily. [place] [address] Medical Branch ferrous 0 Yes 300mg Take 300 Unive rs sulfate 300 9-23 mg by ity of mg (60 mg 14:05: mouth 2 [place] iron)/5 mL 38 (two) Medical solution times [place] daily. atorvastati Yes 80mg Take 80 mg Univers n 80 mg 9-23 by mouth ity of tablet 14:05: at [place] [address] bedtime. Medical Branch albuterol Yes 2.5mg Inhale 2.5 U nivers 2.5 mg /3 9-23 mg every 4 ity of mL (0.083 14:05: (four) [place] %) 38 hours as Medical nebulizer needed for Bran ch solution Wheezing, Shortness of Breath or Bronchospa sm. levothyroxi Yes 137ug Take 137 U nivers ne 137 mcg 9-23 mcg by ity of tablet 14:05: mouth [place] [address] every Medical other day. Branch clopidogreL 0 Yes 75mg Take 75 mg Univers (PLAVIX) 75 9-23 by mouth ity of mg tablet 14:05: daily. [place] [address] Medical Branch ferrous 2020-0 Yes 300mg Take 300 Unive rs sulfate 300 9-23 mg by ity of mg (60 mg 14:05: mouth 2 [place] iron)/5 mL 38 (two) Medical solution times [place] daily. atorvastati Yes 80mg Take 80 mg Univers n 80 mg 9-23 by mouth ity of tablet 14:05: at [place] [address] bedtime. Medical Branch albuterol 2021-0 Yes 2.5mg Inhale 2.5 U nivers 2.5 mg /3 9-23 mg every 4 ity of mL (0.083 14:05: (four) [place] %) 38 hours as Medical nebulizer needed for Bran ch solution Wheezing, Shortness of Breath or Bronchospa sm. levothyroxi Yes 137ug Take 137 U nivers ne 137 mcg 9-23 mcg by ity of tablet 14:05: mouth [place] 38 every Medical other day. Branch KCL Yes 40meq 40 mEq, Univers (KLOR-CON 9-23 Oral, BID, ity of M20) tablet 14:00: First dose [place] 40 mEq 00 on [facility] Medical 12/22/20 at Branch 0900, Until Discontinu ed, Routine aspirin 81 2020- No 81mg Take 81 mg Univers mg EC 12-22 by mouth ity of tablet 11:08: 00:00 daily. [place] 05 :00 [facility] FLUoxetine 2020- No 20mg Take 20 mg Univers (PROZAC) 20 12-22 by mouth ity of mg capsule 11:08: 00:00 daily. [place] 05 :00 [facility] levothyroxi Yes 125ug 125 mcg, U nivers ne 9-23 Oral, Q48H ity of (SYNTHROID) 11:00: ABX, First [place] tablet 125 00 dose Medical mcg (after Branch last reorder) on [facility] 12/22/20 at 0600, Until Discontinu ed, Routine HYDROcodone Yes [id number] 1{tbl} Take 1 Un maddie -acetaminop 9-23 tablet by ity of hen 10-325 00:00: mouth [place] mg tablet 00 every 6 Medical (six) Branch hours as needed for Pain (scale 7-10). Indication s: acute pain HYDROcodone Yes 4647 1{tbl} Take 1 Un maddie -acetaminop 9-23 tablet by ity of hen 10-325 00:00: mouth [place] mg tablet 00 every 6 Medical (six) Branch hours as needed for Pain (scale 7-10). Indication s: acute pain HYDROcodone Yes 4647 1{tbl} Take 1 Un maddie -acetaminop 9-23 tablet by ity of hen 10-325 00:00: mouth [place] mg tablet 00 every 6 Medical (six) Branch hours as needed for Pain (scale 7-10). Indication s: acute pain HYDROcodone Yes 4647 1{tbl} Take 1 Un maddie -acetaminop 9-23 tablet by ity of hen 10-325 00:00: mouth [place] mg tablet 00 every 6 Medical (six) Branch hours as needed for Pain (scale 7-10). Indication s: acute pain lipase-prot 2020- Yes [id number] 1{capsu Take 1 Univers ease-amylas 9-23 12-23 le} capsule by i ty of e (CREON) 00:00: 05:59 mouth 3 [place] 12,000-38,0 00 :00 (three) Medic al 00 -60,000 times Branch unit daily with capsule meals for 90 days. lipase-prot 2020- Yes [id number] 1{capsu Take 1 Univers ease-amylas 9-23 12-23 le} capsule by i ty of e (CREON) 00:00: 05:59 mouth 3 [place] 12,000-38,0 00 :00 (three) Medic al 00 -60,000 times Branch unit daily with capsule meals for 90 days. lipase-prot 2020- Yes [id number] 1{capsu Take 1 Univers ease-amylas 9-23 12-23 le} capsule by i ty of e (CREON) 00:00: 05:59 mouth 3 [place] 12,000-38,0 00 :00 (three) Medic al 00 -60,000 times Branch unit daily with capsule meals for 90 days. lipase-prot 2020- Yes [id number] 1{capsu Take 1 Univers ease-amylas 9-23 12-23 le} capsule by i ty of e (CREON) 00:00: 05:59 mouth 3 [place] 12,000-38,0 00 :00 (three) Medic al 00 -60,000 times Branch unit daily with capsule meals for 90 days. lipase-prot 2020- Yes [id number] 1{capsu Take 1 Univers ease-amylas 9-23 12-23 le} capsule by i ty of e (CREON) 00:00: 05:59 mouth 3 [place] 12,000-38,0 00 :00 (three) Medic al 00 -60,000 times Branch unit daily with capsule meals for 90 days. lipase-prot 2020- Yes [id number] 1{capsu Take 1 Univers ease-amylas 9-23 12-23 le} capsule by i ty of e (CREON) 00:00: 05:59 mouth 3 [place] 12,000-38,0 00 :00 (three) Medic al 00 -60,000 times Branch unit daily with capsule meals for 90 days. lipase-prot 2020- Yes [id number] 1{capsu Take 1 Univers ease-amylas 9-23 12-23 le} capsule by i ty of e (CREON) 00:00: 05:59 mouth 3 [place] 12,000-38,0 00 :00 (three) Medic al 00 -60,000 times Branch unit daily with capsule meals for 90 days. lipase-prot 2020- Yes [id number] 1{capsu Take 1 Univers ease-amylas 9-23 12-23 le} capsule by i ty of e (CREON) 00:00: 05:59 mouth 3 [place] 12,000-38,0 00 :00 (three) Medic al 00 -60,000 times Branch unit daily with capsule meals for 90 days. lipase-prot 2020- Yes [id number] 1{capsu Take 1 Univers ease-amylas 9-23 12-23 le} capsule by i ty of e (CREON) 00:00: 05:59 mouth 3 [place] 12,000-38,0 00 :00 (three) Medic al 00 -60,000 times Branch unit daily with capsule meals for 90 days. lipase-prot 2020- No [id number] 1{capsu Take 1 Univers ease-amylas 9-23 11-03 le} capsule by i ty of e (CREON) 00:00: 00:00 mouth 3 [place] 12,000-38,0 00 :00 (three) Medic al 00 -60,000 times Branch unit daily with capsule meals for 90 days. nicotine 14 2020- Yes [id number] 1{patch Apply 1 Univers mg/24 hr 9-23 10-22 } Patch to ity of patch 00:00: 04:59 area(s) [place] 00 :00 every 24 Medical (twenty-fo Branch ur) hours for 28 days. nicotine 14 2020- Yes [id number] 1{patch Apply 1 Univers mg/24 hr 9-23 10-22 } Patch to ity of patch 00:00: 04:59 area(s) [place] 00 :00 every 24 Medical (twenty-fo Branch ur) hours for 28 days. nicotine 14 2020- Yes [id number] 1{patch Apply 1 Univers mg/24 hr 9-23 10-22 } Patch to ity of patch 00:00: 04:59 area(s) [place] 00 :00 every 24 Medical (twenty-fo Branch ur) hours for 28 days. nicotine 14 2020- Yes [id number] 1{patch Apply 1 Univers mg/24 hr 9-23 10-22 } Patch to ity of patch 00:00: 04:59 area(s) [place] 00 :00 every 24 Medical (twenty-fo Branch ur) hours for 28 days. nicotine 14 2020- Yes [id number] 1{patch Apply 1 Univers mg/24 hr 9-23 10-22 } Patch to ity of patch 00:00: 04:59 area(s) [place] 00 :00 every 24 Medical (twenty-fo Branch ur) hours for 28 days. nicotine 14 2020- Yes [id number] 1{patch Apply 1 Univers mg/24 hr 9-23 10-22 } Patch to ity of patch 00:00: 04:59 area(s) [place] 00 :00 every 24 Medical (twenty-fo Branch ur) hours for 28 days. nicotine 14 2020- Yes [id number] 1{patch Apply 1 Univers mg/24 hr 9-23 10-22 } Patch to ity of patch 00:00: 04:59 area(s) [place] 00 :00 every 24 Medical (twenty-fo Branch ur) hours for 28 days. HYDROcodone 2020- No [id number] 1{tbl} Take 1 U nivers -acetaminop 12-22 10-09 tablet by it y of hen 10-325 00:00: 00:00 mouth [place] mg tablet 00 :00 every 6 Medical (six) Branch hours as needed for Pain (scale 7-10). Indication s: acute pain pantoprazol Yes 20mg 20 mg, Univ ers e 12-21 Oral, ity of (PROTONIX) 17:45: DAILY, [place] EC tablet 00 First dose Medi julieta 20 mg (after Branch last modificati on) on Sat12/21/20 at 1245, Until Discontinu ed, Routine ertapenem 2020- No 1000mg 1,000 mg, Univers (INVANZ) 12-20 IV ity of 1,000 mg in 13:00: 13:49 Piggyback, [place] NaCl 0.9% 00 :00 Q24H ABX, Medic al (NS) 50 mL First dose Bra [facility] MINI-BAG on Sat12/20/20 at 0800, Until Discontinu ed, Administer over 30 Minutes, 50 mL
Reas on for Anti-Infec tive: Documented Infection< br>Documen meng Infection Site: Abdominal< br>Duratio n of Therapy: 10 days
Re stricted use approved by: ADC PROVIDER KCL 2020- No 60meq 60 mEq, Univers (KLOR-CON 12-19 Oral, ONCE ity of M20) tablet 19:45: 19:41 NOW, 1 Real as 60 mEq 00 :00 dose, On [facility] Branch 12/19/20 at 1445, Routine gadobenate 2020- No [id number] .2mL/kg 14.76 mL [facility] dimeglumine 12-19 (0.2 mL/kg i ty of (MULTIHANCE 17:45: 17:15 ?73.8 kg), [place] -20 mL) 00 :00 Intravenou Medica l injection s, ONCE, 1 Bran ch 14.76 mL dose, On Sat12/19/20 at 1245, Routine ALPRAZolam 2020- No 2mg 2 mg, Unive rs (XANAX) 12-19 Oral, ONCE ity o f tablet 2 mg 16:00: 16:13 NOW, 1 Real as 00 :00 dose, On Medical [facility] Branch 12/19/20 at 1115, Routine ondansetron 2021-0 Yes 4mg 4 mg, Slow Univers (ZOFRAN 12-18 IV Push, ity of (PF)) 23:05: Q6HPRN, [place] injection 4 33 Starting Medi julieta mg on [facility] 12/18/20 at 1805, Until Discontinu ed, Routine, Nausea and Vomiting (N/V) traMADoL Yes 50mg 50 mg, Univers (ULTRAM) 12-18 Oral, ity of tablet 50 16:14: Q6HPRN, [place] mg 30 Starting Medical on [facility] 12/18/20 at 1114, Until Discontinu ed, Routine, Pain (scale 4-6) escitalopra Yes 20mg 20 mg, Univ ers m oxalate 12-18 Oral, ity of (LEXAPRO) 14:00: DAILY, [place] tablet 20 00 First dose Medi julieta mg on [facility] 12/18/20 at 0900, Until Discontinu ed, Routine levothyroxi 2020- No 125ug 125 mcg, Univers ne 12-18 Oral, ity of (SYNTHROID) 11:00: 13:23 QAM-0600, [place] tablet 125 00 :37 First dose Med ical mcg on [facility] 12/18/20 at 0600, Until Discontinu ed, Routine KCL No 60meq 60 mEq, Univers (KLOR-CON 12-18 Oral, ity of M20) tablet 10:15: 09:26 ONCE, 1 [place] 60 mEq 00 :00 dose, On Medical [facility] 12/18/20 at 0515, Routine potassium 2020- No 10meq 10 mEq, IV Univers chloride in 12-18 Piggyback, i ty of water 10 09:30: 11:27 Q1H ES, 2 [place] mEq/100 mL 00 :00 doses, Medical RTU 10 mEq First dose Bra nch on [place] 12/18/20 at 0430, Last dose on [place] 12/18/20 at 0530, Administer over 60 Minutes, 100 mL ketorolac No 15mg 15 mg, Unive rs (TORADOL) 12-18 Slow IV ity of injection 08:45: 08:00 Push, [place] 15 mg 00 :00 ONCE, 1 Medical dose, On [facility] 12/18/20 at 0345, Routine
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 : VIKRAM MULLINS iopamidol 2020- No [id number] 120mL 120 mL, Univers (ISOVUE 12-18 Intravenou ity o f 370-500 mL) 00:45: 23:20 s, ONCE, 1 [place] injection 00 :00 dose, On Medica l 120 mL Sat Branch 12/17/20 at 1945, Routine diphenhydrA 2020- No 50mg 50 mg, Uni vers MINE 12-17 Slow IV ity of (BENADRYL) 23:15: 23:11 Push, [place] injection 00 :00 ONCE, 1 Medical 50 mg dose, On Branch 12/17/20 at 1815, KENIA ondansetron 2020- No 4mg 4 mg, Slow Univers (ZOFRAN 12-17 IV Push, ity of (PF)) 22:45: 21:43 ONCE, 1 [place] injection 4 00 :00 dose, On Medi julieta mg Sat Branch 12/17/20 at 1745, Routine levothyroxi Yes 137ug 137 mcg, U nivers ne 12-17 Oral, Q48H ity of (SYNTHROID) 15:30: ABX, First [place] tablet 137 00 dose on Medica l mcg Sat Branch 12/17/20 at 1030, Until Discontinu ed, Routine levothyroxi 2020- No 137ug 137 mcg, Univers ne 12-17 Oral, ity of (SYNTHROID) 15:30: 15:01 Q24H, [place] tablet 137 00 :56 First dose Med ical mcg on Sat Branch 12/17/20 at 1030, Until Discontinu ed, Routine ertapenem 2020- No 1000mg 1,000 mg, Univers (INVANZ) 12-17 IV ity of 1,000 mg in 15:15: 23:36 Piggyback, [place] NaCl 0.9% 00 :37 Q24H ABX, Medic al (NS) 50 mL First dose Bra njh MINI-BAG on 12/17/20 at 1015, Until Discontinu ed, Administer over 30 Minutes, 50 mL
Reas on for Anti-Infec tive: Empiric Therapy for Suspected Infection< br>Empiric Therapy Site: Abdominal< br>Duratio n of therapy: 72 hours
R estricted use approved by: ADC PROVIDER ondansetron 2020- No 4mg 4 mg, Slow Univers (ZOFRAN 12-17 IV Push, ity of (PF)) 01:45: 00:48 ONCE, 1 [place] injection 4 00 :00 dose, On Medi julieta mg Fri Branch 12/16/20 at 2045, Routine lactated 2020- No 1000mL at 150 [facility] ers ringers IV 12-1622 mL/hr, ity of infusion 18:15: 00:02 1,000 mL, Real as 1,000 mL 00 :01 IV Medical Infusion, Branch CONTINUOUS , Starting on Sat12/16/20 at 1315, Until Sat12/20/20 at 1902, Routine lipase-prot Yes 1{capsu 1 capsule, Univers ease-amylas 12-16 le} Oral, TID ity of e (CREON) 17:15: MEALS, [place] 12,000-38,0 00 First dose Me dical 00 -60,000 on Sat Branch unit 12/16/20 at capsule 1 1215, capsule Until Discontinu ed, Routine FLUoxetine 2020- No 20mg 20 mg, [facility] ers (PROZAC) 12-16 Oral, ity of capsule 20 15:15: 14:21 DAILY, [place] mg 00 :36 First dose Medical (after Branch last modificati on) on Sat12/16/20 at 1015, Until Discontinu ed, Routine levothyroxi 2020- No 62.5ug 62.5 mcg, Univers ne 12-16 Intravenou ity of (SYNTHROID) 11:00: 14:18 s, Q48H, [place] injection 00 :23 First dose Medi julieta 62.5 mcg (after Branch last modificati on) on Sat12/16/20 at 0600, Until Discontinu ed, Routine nicotine Yes 1{patch 1 Patch, Un maddie (NICODERM) 12-16 } Topical, ity o f 14 mg/24 hr 04:00: Administer [place] patch 1 00 over 24 Medical Patch Hours, Branch Q24H, First dose on Sat12/15/20 at 2300, Until Discontinu ed, Routine enoxaparin Yes 40mg 40 mg, Unive rs (LOVENOX) 12-15 Subcutaneo ity of injection 22:00: us, DAILY, [place] 40 mg 00 First dose Medical on [place] Branch 12/15/20 at 1700, Until Discontinu ed, Routine NaCl 0.9% 2020- No 1000mL at 125 Uni vers (NS) IV 12-15 mL/hr, IV ity of infusion 20:00: 17:08 Infusion, Real as 1,000 mL 00 :17 CONTINUOUS Medic al , Starting Branch on Sat12/15/20 at 1500, Until Sat12/16/20 at 1208, Routine proCHLORper Yes 10mg 10 mg, Univ ers azine 12-15 Slow IV ity of (COMPAZINE) 19:44: Push, [place] injection 37 Q6HPRN, Medical 10 mg Starting Branch on Sat12/15/20 at 1444, Until Discontinu ed, Routine, Nausea and Vomiting (N/V) NaCl 0.9% 2020- No 1000mL at 999 Uni vers (NS) bolus 12-15 mL/hr, ity of infusion 15:15: 14:25 1,000 mL, Real as 1,000 mL 00 :00 IV Medical Piggyback, Branch ONCE, 1 dose, On [place] 12/15/20 at 1015, STAT proMETHazin 2020- No 25mg 25 mg, IV Univers e 12-15 Piggyback, ity of (PHENERGAN) 15:15: 14:26 ONCE, 1 [place] 25 mg in 00 :00 dose, On Medical NaCl 0.9% [facility] Branch (NS) 50 mL 12/15/20 at piggyback 1015, 50 mL haloperidol 2020- No 2.5mg 2.5 mg, U nivers lactate 12-15 Intravenou ity o f (HALDOL) 15:15: 14:30 s, ONCE, 1 [place] 00 :00 dose, On Medica l 2.5 mg [place] Branch 12/15/20 at 1015, STAT morpHINE Yes 4mg 4 mg, Slow Uni vers injection 4 16 IV Push, ity of mg 14:12: Q4HPRN, [place] 45 Starting Medical on [place] Branch 12/15/20 at 0912, Until Discontinu ed, Routine, Pain (scale 7-10) FENTanyl PF 2020- No 50ug 50 mcg, Un maddie (SUBLIMAZE 12-11 Slow IV ity o f (PF)) 18:00: 17:05 Push, [place] injection 00 :00 ONCE, 1 Medical 50 mcg dose, [facility] 12/11/20 at 1300, Routine FENTanyl PF 2020- No 50ug 50 mcg, Un m[place]ie (SUBLIMAZE 12-11 Slow IV ity o f (PF)) 18:00: 17:05 Push, [place] injection 00 :00 ONCE, 1 Medical 50 mcg dose, [facility] 12/11/20 at 1300, Routine morpHINE 2020-2020- No 4mg 4 mg, Slow Un m[place] injection 4 12-11 IV Push, ity of mg 16:00: 15:18 ONCE, 1 [place] 00 :00 dose, Pending Sale To [facility] 12/11/20 at Branch 1100, STAT ondansetron 2020-0 2020- No 4mg 4 mg, Slow Univers (ZOFRAN 12-11 IV Push, ity of (PF)) 16:00: 15:18 ONCE, 1 [place] injection 4 00 :00 dose, [facility] mg 12/11/20 at Branch 1100, KENIA morpHINE 2020-0 2020- No 4mg 4 mg, Slow Un m[place]ie injection 4 12-11 IV Push, ity of mg 16:00: 15:18 ONCE, 1 [place] 00 :00 dose, Pending Sale To [facility] 12/11/20 at Branch 1100, STAT ondansetron 2020-0 2020- No 4mg 4 mg, Slow Univers (ZOFRAN 12-11 IV Push, ity of (PF)) 16:00: 15:18 ONCE, 1 [place] injection 4 00 :00 dose, [facility] mg 12/11/20 at Branch 1100, KENIA NaCl 0.9% 2020- No 1000mL at 999 Uni vers (NS) bolus 12-11 09-12 mL/hr, ity of infusion 15:15: 17:05 1,000 mL, Real as 1,000 mL 00 :00 IV Medical Infusion, [place] ONCE, 1 dose, 12/11/20 at 1015, STAT NaCl 0.9% 2020- No 1000mL at 999 Uni vers (NS) bolus 12-11 09-12 mL/hr, ity of infusion 15:15: 17:05 1,000 mL, Real as 1,000 mL 00 :00 IV Medical Infusion, [place] ONCE, 1 dose, 12/11/20 at 1015, STAT escitalopra 2020- Yes [id number] 20mg Take 1 Univers m oxalate -01-01 tablet by ity of 20 mg 00:00: 04:59 mouth [place] tablet 00 :00 daily for Medical 30 days. [place] escitalopra 2020- Yes [id number] 20mg Take 1 Univers m oxalate -05 11- tablet by ity of 20 mg 00:00: 04:59 mouth [place] tablet 00 :00 daily for Medical 30 days. [place] escitalopra 2020- Yes [id number] 20mg Take 1 Univers m oxalate -05 11- tablet by ity of 20 mg 00:00: 04:59 mouth [place] tablet 00 :00 daily for Medical 30 days. [place] escitalopra 2020- Yes [id number] 20mg Take 1 Univers m oxalate -05 11- tablet by ity of 20 mg 00:00: 04:59 mouth [place] tablet 00 :00 daily for Medical 30 days. Branch escitalopra 2020- Yes [id number] 20mg Take 1 Univers m oxalate 9-05 11- tablet by ity of 20 mg 00:00: 04:59 mouth [place] tablet 00 :00 daily for Medical 30 days. [place] escitalopra 2020- Yes [id number] 20mg Take 1 Univers m oxalate -05 11- tablet by ity of 20 mg 00:00: 04:59 mouth [place] tablet 00 :00 daily for Medical 30 days. Branch escitalopra 2020- Yes [id number] 20mg Take 1 Univers m oxalate 12-01 tablet by ity of 20 mg 00:00: 04:59 mouth [place] tablet 00 :00 daily for Medical 30 days. Branch escitalopra 2020- Yes [id number] 20mg Take 1 Univers m oxalate 12-01 tablet by ity of 20 mg 00:00: 04:59 mouth [place] tablet 00 :00 daily for Medical 30 days. Branch escitalopra 2020- Yes [id number] 20mg Take 1 Univers m oxalate 12-01 tablet by ity of 20 mg 00:00: 04:59 mouth [place] tablet 00 :00 daily for Medical 30 days. Branch clopidogreL Yes 75mg Take 75 mg Univers (PLAVIX) 75 11-30 by mouth ity of mg tablet 21:09: daily. Medical Branch aspirin 81 Yes 81mg Take 81 mg U nivers mg EC 11-30 by mouth ity of tablet 21:09: daily. Medical Branch ferrous Yes 300mg Take 300 Unive rs sulfate 300 11-30 mg by ity of mg (60 mg 21:09: mouth 2 [place] iron)/5 mL 00 (two) Medical solution times Branch daily. atorvastati Yes 80mg Take 80 mg Univers n 80 mg 11-30 by mouth ity of tablet 21:09: at [place] 00 bedtime. Medical Branch albuterol Yes 2.5mg Inhale 2.5 U nivers 2.5 mg /3 9- mg every 4 ity of mL (0.083 21:09: (four) [place] %) 00 hours as Medical nebulizer needed for Bran ch solution Wheezing, Shortness of Breath or Bronchospa sm. levothyroxi Yes 137ug Take 137 U nivers ne 137 mcg - mcg by ity of tablet 21:09: mouth [place] 00 every Medical other day. Branch clopidogreL Yes 75mg Take 75 mg Univers (PLAVIX) 75 11-30 by mouth ity of mg tablet 21:09: daily. Medical Branch aspirin 81 Yes 81mg Take 81 mg U nivers mg EC 11-30 by mouth ity of tablet 21:09: daily. Medical Branch ferrous Yes 300mg Take 300 Unive rs sulfate 300 9-01 mg by ity of mg (60 mg 21:09: mouth 2 [place] iron)/5 mL 00 (two) Medical solution times Branch daily. atorvastati Yes 80mg Take 80 mg Univers n 80 mg 9-01 by mouth ity of tablet 21:09: at [place] 00 bedtime. Medical Branch albuterol Yes 2.5mg Inhale 2.5 U nivers 2.5 mg /3 9-01 mg every 4 ity of mL (0.083 21:09: (four) [place] %) 00 hours as Medical nebulizer needed for Bran ch solution Wheezing, Shortness of Breath or Bronchospa sm. levothyroxi Yes 137ug Take 137 U nivers ne 137 mcg 9-01 mcg by ity of tablet 21:09: mouth [place] 00 every Medical other day. Branch clopidogreL Yes 75mg Take 75 mg Univers (PLAVIX) 75 9-01 by mouth ity of mg tablet 21:09: daily. [place] Medical Branch aspirin 81 Yes 81mg Take 81 mg U nivers mg EC 9-01 by mouth ity of tablet 21:09: daily. Medical Branch ferrous Yes 300mg Take 300 Unive rs sulfate 300 9-01 mg by ity of mg (60 mg 21:09: mouth 2 [place] iron)/5 mL 00 (two) Medical solution times [place] daily. atorvastati Yes 80mg Take 80 mg Univers n 80 mg 9-01 by mouth ity of tablet 21:09: at [place] 00 bedtime. Medical Branch albuterol Yes 2.5mg Inhale 2.5 U nivers 2.5 mg /3 9-01 mg every 4 ity of mL (0.083 21:09: (four) [place] %) 00 hours as Medical nebulizer needed for Bran ch solution Wheezing, Shortness of Breath or Bronchospa sm. levothyroxi Yes 137ug Take 137 U nivers ne 137 mcg 9-01 mcg by ity of tablet 21:09: mouth [place] 00 every Medical other day. Branch clopidogreL Yes 75mg Take 75 mg Univers (PLAVIX) 75 9-01 by mouth ity of mg tablet 21:09: daily. Medical Branch aspirin 81 0 Yes 81mg Take 81 mg U nivers mg EC 9-01 by mouth ity of tablet 21:09: daily. Medical Branch ferrous 0 Yes 300mg Take 300 Unive rs sulfate 300 9-01 mg by ity of mg (60 mg 21:09: mouth 2 [place] iron)/5 mL 00 (two) Medical solution times Branch daily. atorvastati Yes 80mg Take 80 mg Univers n 80 mg 9-01 by mouth ity of tablet 21:09: at [place] 00 bedtime. Medical Branch albuterol Yes 2.5mg Inhale 2.5 U nivers 2.5 mg /3 9-01 mg every 4 ity of mL (0.083 21:09: (four) [place] %) 00 hours as Medical nebulizer needed for Bran ch solution Wheezing, Shortness of Breath or Bronchospa sm. levothyroxi Yes 137ug Take 137 U nivers ne 137 mcg 9- mcg by ity of tablet 21:09: mouth every Medical other day. Branch clopidogreL Yes 75mg Take 75 mg Univers (PLAVIX) 75 9-01 by mouth ity of mg tablet 21:09: daily. Medical Branch aspirin 81 0 Yes 81mg Take 81 mg U nivers mg EC 9 by mouth ity of tablet 21:09: daily. Medical Branch ferrous Yes 300mg Take 300 Unive rs sulfate 300 9-01 mg by ity of mg (60 mg 21:09: mouth 2 [place] iron)/5 mL 00 (two) Medical solution times [place] daily. atorvastati Yes 80mg Take 80 mg Univers n 80 mg 9-01 by mouth ity of tablet 21:09: at [place] 00 bedtime. Medical Branch albuterol 0 Yes 2.5mg Inhale 2.5 U nivers 2.5 mg /3 9-01 mg every 4 ity of mL (0.083 21:09: (four) [place] %) 00 hours as Medical nebulizer needed for Bran ch solution Wheezing, Shortness of Breath or Bronchospa sm. levothyroxi Yes 137ug Take 137 U nivers ne 137 mcg 9-01 mcg by ity of tablet 21:09: mouth [place] 00 every Medical other day. Branch clopidogreL Yes 75mg Take 75 mg Univers (PLAVIX) 75 11-30 by mouth ity of mg tablet 21:09: daily. Medical Branch aspirin 81 Yes 81mg Take 81 mg U nivers mg EC 11-30 by mouth ity of tablet 21:09: daily. Medical Branch ferrous Yes 300mg Take 300 Unive rs sulfate 300 11-30 mg by ity of mg (60 mg 21:09: mouth 2 [place] iron)/5 mL 00 (two) Medical solution times Branch daily. atorvastati Yes 80mg Take 80 mg Univers n 80 mg 11-30 by mouth ity of tablet 21:09: at [place] 00 bedtime. Medical Branch albuterol Yes 2.5mg Inhale 2.5 U nivers 2.5 mg /3 9-01 mg every 4 ity of mL (0.083 21:09: (four) [place] %) 00 hours as Medical nebulizer needed for Bran ch solution Wheezing, Shortness of Breath or Bronchospa sm. levothyroxi Yes 137ug Take 137 U nivers ne 137 mcg 9-01 mcg by ity of tablet 21:09: mouth [place] 00 every Medical other day. Branch nicotine 21 2020- No 1{patch Apply 1 Univers mg/24 hr 11-30 } Patch to ity of patch 19:35: 00:00 area(s) [place] 52 :00 every 24 Medical (twenty-fo Branch ur) hours. melatonin 3 2020- No 6mg Take 6 mg Univers mg tablet 11-30 by mouth ity o f 19:35: 00:00 at [place] 52 :00 bedtime. Medical Branch nicotine 21 2020- No 1{patch Apply 1 Univers mg/24 hr 11-30 } Patch to ity of patch 19:35: 00:00 area(s) [place] 52 :00 every 24 Medical (twenty-fo Branch ur) hours. melatonin 3 2020- No 6mg Take 6 mg Univers mg tablet 11-30 by mouth ity o f 19:35: 00:00 at [place] 52 :00 bedtime. Medical Branch clopidogreL Yes 75mg Take 75 mg Univers (PLAVIX) 75 11-30 by mouth ity of mg tablet 16:09: daily. Medical Branch aspirin 81 Yes 81mg Take 81 mg U nivers mg EC 11-30 by mouth ity of tablet 16:09: daily. Medical Branch ferrous Yes 300mg Take 300 Unive rs sulfate 300 11-30 mg by ity of mg (60 mg 16:09: mouth 2 [place] iron)/5 mL 00 (two) Medical solution times Branch daily. atorvastati Yes 80mg Take 80 mg Univers n 80 mg 11-30 by mouth ity of tablet 16:09: at [place] 00 bedtime. Medical Branch albuterol Yes 2.5mg Inhale 2.5 U nivers 2.5 mg /3 - mg every 4 ity of mL (0.083 16:09: (four) [place] %) 00 hours as Medical nebulizer needed for Bran ch solution Wheezing, Shortness of Breath or Bronchospa sm. levothyroxi Yes 137ug Take 137 U nivers ne 137 mcg 11-30 mcg by ity of tablet 16:09: mouth [place] 00 every Medical other day. Branch KCL 20 mEq 2020- Yes [id number] 40meq Take 2 Univers tablet 11-30 tablets by ity of 00:00: 04:59 mouth 2 [place] 00 :00 (two) Medical times Branch daily for 30 days. phosphorus 2020- Yes [id number] 1{tbl} Take 1 Univers 250 mg 11-30 tablet by ity of tablet 00:00: 04:59 mouth 3 [place] 00 :00 (three) Medical times Branch daily for 30 days. lipase-prot 2020- Yes [id number] 1{capsu Take 1 Univers ease-amylas 11-30 le} capsule by i ty of e (CREON) 00:00: 04:59 mouth 3 [place] 12,000-38,0 00 :00 (three) Medic al 00 -60,000 times Branch unit daily with capsule meals for 30 days. KCL 20 mEq 2020- Yes [id number] 40meq Take 2 Univers tablet - 10- tablets by ity of 00:00: 04:59 mouth 2 [place] 00 :00 (two) Medical times Branch daily for 30 days. phosphorus 2020- Yes [id number] 1{tbl} Take 1 Univers 250 mg - 10- tablet by ity of tablet 00:00: 04:59 mouth 3 [place] 00 :00 (three) Medical times Branch daily for 30 days. lipase-prot 2020- Yes [id number] 1{capsu Take 1 Univers ease-amylas -12-31 le} capsule by i ty of e (CREON) 00:00: 04:59 mouth 3 [place] 12,000-38,0 00 :00 (three) Medic al 00 -60,000 times Branch unit daily with capsule meals for 30 days. KCL 20 mEq 2020- Yes [id number] 40meq Take 2 Univers tablet 11-30 tablets by ity of 00:00: 04:59 mouth 2 [place] 00 :00 (two) Medical times Branch daily for 30 days. phosphorus 2020- Yes [id number] 1{tbl} Take 1 Univers 250 mg -04 10- tablet by ity of tablet 00:00: 04:59 mouth 3 [place] 00 :00 (three) Medical times Branch daily for 30 days. lipase-prot 2020- Yes [id number] 1{capsu Take 1 Univers ease-amylas -12-31 le} capsule by i ty of e (CREON) 00:00: 04:59 mouth 3 [place] 12,000-38,0 00 :00 (three) Medic al 00 -60,000 times Branch unit daily with capsule meals for 30 days. KCL 20 mEq 2020- Yes [id number] 40meq Take 2 Univers tablet - 10- tablets by ity of 00:00: 04:59 mouth 2 [place] 00 :00 (two) Medical times Branch daily for 30 days. phosphorus 2020- Yes [id number] 1{tbl} Take 1 Univers 250 mg 9- 10- tablet by ity of tablet 00:00: 04:59 mouth 3 [place] 00 :00 (three) Medical times Branch daily for 30 days. lipase-prot 2020- Yes [id number] 1{capsu Take 1 Univers ease-amylas -12-31 le} capsule by i ty of e (CREON) 00:00: 04:59 mouth 3 [place] 12,000-38,0 00 :00 (three) Medic al 00 -60,000 times Branch unit daily with capsule meals for 30 days. KCL 20 mEq 2020- Yes [id number] 40meq Take 2 Univers tablet 11-30 tablets by ity of 00:00: 04:59 mouth 2 [place] 00 :00 (two) Medical times Branch daily for 30 days. KCL 20 mEq 2020- Yes [id number] 40meq Take 2 Univers tablet 11-30 tablets by ity of 00:00: 04:59 mouth 2 [place] 00 :00 (two) Medical times Branch daily for 30 days. KCL 20 mEq 2020- Yes [id number] 40meq Take 2 Univers tablet 11-30 tablets by ity of 00:00: 04:59 mouth 2 [place] 00 :00 (two) Medical times Branch daily for 30 days. phosphorus 2020- Yes [id number] 1{tbl} Take 1 Univers 250 mg 11-30 tablet by ity of tablet 00:00: 04:59 mouth 3 [place] 00 :00 (three) Medical times Branch daily for 30 days. lipase-prot 2020- Yes [id number] 1{capsu Take 1 Univers ease-amylas -12-31 le} capsule by i ty of e (CREON) 00:00: 04:59 mouth 3 [place] 12,000-38,0 00 :00 (three) Medic al 00 -60,000 times Branch unit daily with capsule meals for 30 days. KCL 20 mEq 2020- Yes [id number] 40meq Take 2 Univers tablet 11-30 tablets by ity of 00:00: 04:59 mouth 2 [place] 00 :00 (two) Medical times Branch daily for 30 days. phosphorus 2020- Yes [id number] 1{tbl} Take 1 Univers 250 mg 11-30 tablet by ity of tablet 00:00: 04:59 mouth 3 [place] 00 :00 (three) Medical times Branch daily for 30 days. lipase-prot 2020- Yes [id number] 1{capsu Take 1 Univers ease-amylas 11-30 le} capsule by i ty of e (CREON) 00:00: 04:59 mouth 3 [place] 12,000-38,0 00 :00 (three) Medic al 00 -60,000 times Branch unit daily with capsule meals for 30 days. KCL 20 mEq 2020- Yes [id number] 40meq Take 2 Univers tablet 11-30 tablets by ity of 00:00: 04:59 mouth 2 [place] 00 :00 (two) Medical times Branch daily for 30 days. phosphorus 2020- Yes [id number] 1{tbl} Take 1 Univers 250 mg 11-30 tablet by ity of tablet 00:00: 04:59 mouth 3 [place] 00 :00 (three) Medical times Branch daily for 30 days. lipase-prot 2020- Yes [id number] 1{capsu Take 1 Univers ease-amylas 11-30 le} capsule by i ty of e (CREON) 00:00: 04:59 mouth 3 [place] 12,000-38,0 00 :00 (three) Medic al 00 -60,000 times Branch unit daily with capsule meals for 30 days. phosphorus 2020- No [id number] 1{tbl} Take 1 Univers 250 mg 11-30 tablet by ity of tablet 00:00: 00:00 mouth 3 [place] 00 :00 (three) Medical times Branch daily for 30 days. lipase-prot 2020- No [id number] 1{capsu Take 1 Univers ease-amylas 11-30 le} capsule by i ty of e (CREON) 00:00: 00:00 mouth 3 [place] 12,000-38,0 00 :00 (three) Medic al 00 -60,000 times Branch unit daily with capsule meals for 30 days. HYDROcodone 2020- Yes [id number] 1{tbl} Take 1 U nivers -acetaminop 11-30 tablet by it y of hen 5-325 00:00: 04:59 mouth [place] mg tablet 00 :00 every 6 Medical (six) Branch hours as needed for Pain (scale 4-6) or Pain (scale 7-10) for up to 7 days. Indication s: acute pain HYDROcodone 2020- Yes [id number] 1{tbl} Take 1 U nivers -acetaminop 11-30 tablet by it y of hen 5-325 00:00: 04:59 mouth [place] mg tablet 00 :00 every 6 Medical (six) Branch hours as needed for Pain (scale 4-6) or Pain (scale 7-10) for up to 7 days. Indication s: acute pain HYDROcodone 2020- Yes [id number] 1{tbl} Take 1 U nivers -acetaminop 11-30 tablet by it y of hen 5-325 00:00: 04:59 mouth [place] mg tablet 00 :00 every 6 Medical (six) Branch hours as needed for Pain (scale 4-6) or Pain (scale 7-10) for up to 7 days. Indication s: acute pain HYDROcodone 2020- Yes [id number] 1{tbl} Take 1 U nivers -acetaminop 11-30 tablet by it y of hen 5-325 00:00: 04:59 mouth [place] mg tablet 00 :00 every 6 Medical (six) Branch hours as needed for Pain (scale 4-6) or Pain (scale 7-10) for up to 7 days. Indication s: acute pain ALPRAZolam 2020- No 2mg 2 mg, Unive rs (XANAX) 11-28 08-30 Oral, ity of tablet 2 mg 15:30: 14:30 ONCE, 1 [place] 00 :00 dose, [facility] 11/28/20 at Branch 1030, Routine ALPRAZolam 2020- No 2mg 2 mg, Unive rs (XANAX) 11-28 08-30 Oral, ity of tablet 2 mg 15:30: 14:30 ONCE, 1 [place] 00 :00 dose, [facility] 11/28/20 at Branch 1030, Routine gadoteridol 2020- No [id number] .2mL/kg 15.9 mL Univers (PROHANCE-1 11-28 (0.2 mL/kg i ty of 5 mL) 14:45: 14:45 ?79.5 kg), [place] injection 00 :00 Intravenou Medi julieta 15.9 mL s, ONCE, 1 Branch dose, 11/28/20 at 0945, Routine gadoteridol 2020-0 2021- No [id number] .2mL/kg 15.9 mL Univers (PROHANCE-1 11-28 (0.2 mL/kg i ty of 5 mL) 14:45: 14:45 ?79.5 kg), [place] injection 00 :00 Intravenou Medi julieta 15.9 mL s, ONCE, 1 Branch dose, 11/28/20 at 0945, Routine ondansetron 2020-0 Yes 4mg 4 mg, Slow Univers (ZOFRAN 8-29 IV Push, ity of (PF)) 18:00: Q6HPRN, [place] injection 4 00 Starting Medi julieta mg [facility] 11/27/20 at 1300, Until Discontinu ed, Routine, nausea and vomiting ondansetron 2020-0 Yes 4mg 4 mg, Slow Univers (ZOFRAN 8-29 IV Push, ity of (PF)) 18:00: Q6HPRN, [place] injection 4 00 Starting Medi julieta mg [facility] 11/27/20 at 1300, Until Discontinu ed, Routine, nausea and vomiting phosphorus 1-0 Yes 250mg 1 tablet Un maddie (K PHOS 8-29 (250 mg), ity of NEUTRAL) 13:30: Oral, TID, Real as tablet 1 00 First dose Medic al tablet on [facility] 11/27/20 at 0830, Until Discontinu ed, Routine phosphorus 2020-0 Yes 250mg 1 tablet Un amddie (K PHOS 8-29 (250 mg), ity of NEUTRAL) 13:30: Oral, TID, Real as tablet 1 00 First dose Medic al tablet on [facility] 11/27/20 at 0830, Until Discontinu ed, Routine magnesium 1-0 1- No 4g 4 g, IV Univ ers sulfate in 11-26 Piggyback, it y of water 4 15:30: 14:41 ONCE, 1 [place] gram/50 mL 00 :00 dose, Sat Medi julieta (8 %) IV 11/26/20 at [facility] h Piggyback 4 1030, g Routine magnesium No 4g 4 g, IV Univ ers sulfate in 11-26 Piggyback, it y of water 4 15:30: 14:41 ONCE, 1 [place] gram/50 mL 00 :00 dose, Sat Medi julieta (8 %) IV 11/26/20 at [facility] h Piggyback 4 1030, g Routine ketorolac Yes 30mg 30 mg, Univer s (TORADOL) 11-26 Slow IV ity of injection 02:16: Push, [place] 30 mg 31 Q6HPRN, Medical Starting Branch Sat11/25/20 at 2115, Until Discontinu ed, Routine, Alternate with [place] for pain scale 4-6
Fac ulty member approving Restricted medication : CHIDI KRISHNAN ketorolac Yes 30mg 30 mg, Univer s (TORADOL) 11-26 Slow IV ity of injection 02:16: Push, [place] 30 mg 31 Q6HPRN, Medical Starting Branch Sat11/25/20 at 2115, Until Discontinu ed, Routine, Alternate with [place] for pain scale 4-6
Fac ulty member approving Restricted medication : CHIDI KRISHNAN HYDROcodone 0 Yes 1{tbl} 1 tablet, Univers -acetaminop 8 Oral, ity of hen (NORCO 02:16: Q6HPRN, [place] 5) 5-325 mg 13 Starting Medi julieta tablet 1 Fri Branch tablet 11/25/20 at 2115, Until Discontinu ed, Routine, Pain (scale 4-6) HYDROcodone 2020-0 Yes 1{tbl} 1 tablet, Univers -acetaminop 8-28 Oral, ity of hen (NORCO 02:16: Q6HPRN, [place] 5) 5-325 mg 13 Starting Medi julieta tablet 1 Fri Branch tablet 11/25/20 at 2115, Until Discontinu ed, Routine, Pain (scale 4-6) ketorolac 0 2020- No 30mg 30 mg, Unive rs (TORADOL) 11-25 Slow IV ity of injection 22:59: 02:17 Push, [place] 30 mg 51 :06 Q6HPRN, Medical Starting Branch Sat11/25/20 at 1759, Until Sat11/25/20 at 211, Routine, Pain (scale 4-6)
Fa culty member approving Restricted medication : CHIDI KRISHNAN ketorolac No 30mg 30 mg, Unive rs (TORADOL) 11-25 Slow IV ity of injection 22:59: 02:17 Push, [place] 30 mg 51 :06 Q6HPRN, Medical Starting Branch Sat11/25/20 at 1759, Until Sat11/25/20 at 211, Routine, Pain (scale 4-6)
Fa culty member approving Restricted medication : CHIDI KRISHNAN NaCl 0.9% 2020- No IV Univers (NS) 1000 11-25 Infusion, ity of mL + KCL 20 20:00: 13:27 at 125 Real as mEq 00 :16 mL/hr, Medical CONTINUOUS Branch , Starting Sat11/25/20 at 1500, Until Sat11/28/20 at 0827, Routine NaCl 0.9% No IV Univers (NS) 1000 11-25 Infusion, ity of mL + KCL 20 20:00: 13:27 at 125 Real as mEq 00 :16 mL/hr, Medical CONTINUOUS Branch , Starting Sat11/25/20 at 1500, Until Sat11/28/20 at 0827, Routine ondansetron 2020- No 4mg 4 mg, Slow Univers (ZOFRAN 11-25 IV Push, ity of (PF)) 17:00: 17:53 Q6H, First [place] injection 4 00 :23 dose Medical mg (after Branch last modificati on) on Sat11/25/20 at 1200, Until Discontinu ed, Routine ondansetron 2020- No 4mg 4 mg, Slow Univers (ZOFRAN 11-25 IV Push, ity of (PF)) 17:00: 17:53 Q6H, First [place] injection 4 00 :23 dose Medical mg (after Branch last modificati on) on Sat11/25/20 at 1200, Until Discontinu ed, Routine escitalopra 0 Yes 20mg 20 mg, Univ ers m oxalate 11-25 Oral, ity of (LEXAPRO) 14:15: DAILY, [place] tablet 20 00 First dose Medi julieta mg on [facility] 11/25/20 at 0915, Until Discontinu ed, Routine escitalopra Yes 20mg 20 mg, Univ ers m oxalate 11-25 Oral, ity of (LEXAPRO) 14:15: DAILY, [place] tablet 20 First dose Medi julieta mg on [facility] 11/25/20 at 0915, Until Discontinu ed, Routine morpHINE 2020-0 Yes 4mg 4 mg, Slow Uni vers injection 4 11-25 IV Push, ity of mg 06:35: Q4HPRN, [address] 11/25/20 at 0135, Until Discontinu ed, Routine, Pain (scale 7-10) morpHINE 2020- Yes 4mg 4 mg, Slow Uni vers injection 4 11-25 IV Push, ity of mg 06:35: Q4HPRN, [address] 11/25/20 at 0135, Until Discontinu ed, Routine, Pain (scale 7-10) ferrous 0 Yes 325mg 325 mg, Univer s sulfate 11-25 Oral, BID, ity of tablet 325 02:00: First dose [place] mg on [facility] 11/24/20 at Branch 2100, Until Discontinu ed, Routine melatonin 2020-0 Yes 6mg 6 mg, Univers (MELATIN) 11-25 Oral, QHS, ity of tablet 6 mg 02:00: First dose [place] 00 on [facility] 11/24/20 at Branch 2100, Until Discontinu ed, Routine atorvastati 0 Yes 80mg 80 mg, Univ ers n (LIPITOR) 11-25 Oral, QHS, it y of tablet 80 02:00: First dose [place] mg on [facility] 11/24/20 at Branch 2100, Until Discontinu ed, Routine ferrous 2020-0 Yes 325mg 325 mg, Univer s sulfate 11-25 Oral, BID, ity of tablet 325 02:00: First dose [place] mg 00 on [facility] 11/24/20 at Branch 2100, Until Discontinu ed, Routine melatonin 2020-0 Yes 6mg 6 mg, Univers (MELATIN) 827 Oral, QHS, ity of tablet 6 mg 02:00: First dose [place] 00 on [facility] 11/24/20 at Branch 2100, Until Discontinu ed, Routine atorvastati 2020-0 Yes 80mg 80 mg, Univ ers n (LIPITOR) 8 Oral, QHS, it y of tablet 80 02:00: First dose [place] mg 00 on [facility] 11/24/20 at Branch 2100, Until Discontinu ed, Routine KCL 2020-0 Yes 40meq 40 mEq, Univers (KLOR-CON 8-27 Oral, BID, ity of M20) tablet 01:00: First dose [place] 40 mEq 00 (after Medical last Branch reorder) on [facility] 11/24/20 at 2000, Until Discontinu ed, Routine KCL 2020-0 Yes 40meq 40 mEq, Univers (KLOR-CON 8-27 Oral, BID, ity of M20) tablet 01:00: First dose [place] 40 mEq 00 (after Medical last Branch reorder) on [facility] 11/24/20 at 2000, Until Discontinu ed, Routine enoxaparin 2020-0 Yes 40mg 40 mg, Unive rs (LOVENOX) 8 Subcutaneo ity of injection 14:00: us, DAILY, [place] 40 mg 00 First dose Medical on [facility] 11/24/20 at 0900, Until Discontinu ed, Routine ARIPiprazol 2020-0 Yes 5mg 5 mg, Unive rs e (ABILIFY) 11-24 Oral, ity of tablet 5 mg 14:00: DAILY, [place] 00 First dose Medical on [facility] 11/24/20 at 0900, Until Discontinu ed, Routine pantoprazol 2020-0 Yes 40mg 40 mg, Univ ers e 8 Oral, ity of (PROTONIX) 14:00: DAILY, [place] EC tablet 00 First dose Medi julieta 40 mg on [facility] 11/24/20 at 0900, Until Discontinu ed, Routine colchicine 2020-0 Yes .6mg 0.6 mg, Univ ers (COLCRYS) 8 Oral, ity of tablet 0.6 14:00: DAILY, [place] mg 00 First dose Medical on [facility] 11/24/20 at 0900, Until Discontinu ed, Routine clopidogreL 2020-0 Yes 75mg 75 mg, Univ ers (PLAVIX) 11-24 Oral, ity of tablet 75 14:00: DAILY, [place] mg 00 First dose Medical on [facility] 11/24/20 at 0900, Until Discontinu ed, Routine cholecalcif 2020-0 Yes 1000U 1,000 Univ ers ester 11-24 Units, ity of (vitamin 14:00: Oral, [place] D3) tablet 00 DAILY, Medical 1,000 Units First dose Br anch on [facility] 11/24/20 at 0900, Until Discontinu ed, Routine aspirin EC 2020-0 Yes 81mg 81 mg, Unive rs tablet 81 11-24 Oral, ity of mg 14:00: DAILY, [place] 00 First dose Medical on [facility] 11/24/20 at 0900, Until Discontinu ed, Routine enoxaparin 2020-0 Yes 40mg 40 mg, Unive rs (LOVENOX) 11-24 Subcutaneo ity of injection 14:00: [place], [place]ILY[place] 40 mg 00 First dose Medical on [facility] 11/24/20 at 0900, Until Discontinu ed, Routine ARIPiprazol 2020-0 Yes 5mg 5 mg, Unive rs e (ABILIFY) 11-24 Oral, ity of tablet 5 mg 14:00: DAILY[place] 00 First dose Medical on [facility] 11/24/20 at 0900, Until Discontinu ed, Routine pantoprazol 2020-0 Yes 40mg 40 mg, Univ ers e 11-24 Oral, ity of (PROTONIX) 14:00: DAILY, [place] EC tablet 00 First dose Medi julieta 40 mg on [facility] 11/24/20 at 0900, Until Discontinu ed, Routine colchicine 2020-0 Yes .6mg 0.6 mg, Univ ers (COLCRYS) 11-24 Oral, ity of tablet 0.6 14:00: DAILY, [place] mg 00 First dose Medical on [facility] 11/24/20 at 0900, Until Discontinu ed, Routine clopidogreL 2020-0 Yes 75mg 75 mg, Univ ers (PLAVIX) 11-24 Oral, ity of tablet 75 14:00: DAILY, [place] mg 00 First dose Medical on [facility] 11/24/20 at 0900, Until Discontinu ed, Routine cholecalcif Yes 1000U 1,000 Univ ers ester 11-24 Units, ity of (vitamin 14:00: Oral, [place] D3) tablet 00 DAILY, Medical 1,000 Units First dose Br anch on [facility] 11/24/20 at 0900, Until Discontinu ed, Routine aspirin EC Yes 81mg 81 mg, Unive rs tablet 81 11-24 Oral, ity of mg 14:00: DAILY, [place] 00 First dose Medical on [facility] 11/24/20 at 0900, Until Discontinu ed, Routine lipase-prot Yes 1{capsu 1 capsule, Univers ease-amylas 11-24 le} Oral, TID ity of e (CREON) 13:00: MEALS, [place] 12,000-38,0 00 First dose Me dical 00 -60,000 on [facility] unit 11/24/20 at capsule 1 0800, capsule Until Discontinu ed, Routine lipase-prot Yes 1{capsu 1 capsule, Univers ease-amylas 11-24 le} Oral, TID ity of e (CREON) 13:00: MEALS, [place] 12,000-38,0 00 First dose Me dical 00 -60,000 on [facility] 11/24/20 at capsule 1 0800, capsule Until Discontinu ed, Routine potassium 2020-2020- No 10meq 10 mEq, IV Univers chloride in 11-24 Piggyback, i ty of water 10 13:00: 14:00 Q2H, 2 [place] mEq/100 mL 00 :00 doses, Medical RTU 10 mEq First dose Bra nch on [facility] 11/24/20 at 0800, Last dose on [facility] 11/24/20 at 1000, Administer over 60 Minutes, 100 mL potassium 2020- No 10meq 10 mEq, IV Univers chloride in 11-24 Piggyback, i ty of water 10 13:00: 14:00 Q2H, 2 [place] mEq/100 mL 00 :00 doses, Medical RTU 10 mEq First dose Bra nch on [facility] 11/24/20 at 0800, Last dose on [facility] 11/24/20 at 1000, Administer over 60 Minutes, 100 mL KCL 2020- No 40meq 40 mEq, Univers (KLOR-CON 11-24 Oral, ity of M20) tablet 12:45: 11:48 ONCE, 1 [place] 40 mEq 00 :00 dose, [facility] 11/24/20 at Branch 0745, Routine KCL 2020-2020- No 40meq 40 mEq, Univers (KLOR-CON 11-24 Oral, ity of M20) tablet 12:45: 11:48 ONCE, 1 [place] 40 mEq 00 :00 dose, [facility] 11/24/20 at Branch 0745, Routine levothyroxi Yes 125ug 125 mcg, U nivers ne 11-24 Oral, ity of (SYNTHROID) 11:00: QAM-0600, [place] tablet 125 00 First dose Med ical mcg on [facility] 11/24/20 at 0600, Until Discontinu ed, Routine levothyroxi Yes 125ug 125 mcg, U nivers ne 11-24 Oral, ity of (SYNTHROID) 11:00: QAM-0600, [place] tablet 125 00 First dose Med ical mcg on [facility] 11/24/20 at 0600, Until Discontinu ed, Routine morpHINE 2020- No 4mg 4 mg, Slow Un maddie injection 4 11-24 IV Push, ity of mg 03:45: 02:33 ONCE, 1 [place] 00 :00 dose, [facility] 11/23/20 at Branch 2245, STAT morpHINE 2020-0 2020- No 4mg 4 mg, Slow Un maddie injection 4 11-24 IV Push, ity of mg 03:45: 02:33 ONCE, 1 [place] 00 :00 dose, [facility] 11/23/20 at Branch 2245, STAT nicotine 2020-0 Yes 1{patch 1 Patch, Un maddie (NICODERM) 11-24 } Topical, ity o f 21 mg/24 hr 03:15: Administer [place] patch 1 00 over 24 Medical Patch Hours, Branch Q24H, First dose on Sat11/23/20 at 2215, Until Discontinu ed, Routine nicotine 2020-0 Yes 1{patch 1 Patch, Un maddie (NICODERM) 11-24 } Topical, ity o f 21 mg/24 hr 03:15: Administer [place] patch 1 00 over 24 Medical Patch Hours, Branch Q24H, First dose on Sat11/23/20 at 2215, Until Discontinu ed, Routine lactated 2020-0 202- No 1000mL at 999 Univ ers ringers IV 8 08-26 mL/hr, ity of infusion 03:00: 02:04 1,000 mL, [place] 1,000 mL 00 :00 IV Medical Infusion, Branch ONCE, 1 dose, Sat11/23/20 at 2200, KENIA lactated 2020-0 2020- No 1000mL at 999 Univ ers ringers IV 11-24 08-26 mL/hr, ity of infusion 03:00: 02:04 1,000 mL, Real [place] 1,000 mL 00 :00 IV Medical Infusion, Branch ONCE, 1 dose, Sat11/23/20 at 2200, KENIA lactated 2020-0 2020- No 1000mL at 150 Univ ers ringers IV 11-24 08-27 mL/hr, ity of infusion 02:15: 14:40 1,000 mL, [place] 1,000 mL 00 :36 IV Medical Infusion, Branch CONTINUOUS , Starting Sat11/23/20 at 2115, Until Sat11/25/20 at 0940, Routine lactated 2020-0 2020- No 1000mL at 150 Univ ers ringers IV 11-24 08-27 mL/hr, ity of infusion 02:15: 14:40 1,000 mL, Real [place] 1,000 mL 00 :36 IV Medical Infusion, Branch CONTINUOUS , Starting Sat11/23/20 at 2115, Until Sat11/25/20 at 0940, Routine diphenhydrA 2020-0 2020- No 25mg 25 mg, Uni vers MINE 11-24 Slow IV ity of (BENADRYL) 02:15: 01:14 Push, [place] injection 00 :00 ONCE, 1 Medical 25 mg dose, [facility] 11/23/20 at 2115, STAT diphenhydrA 2020-0 2020- No 25mg 25 mg, Uni vers MINE 11-24 Slow IV ity of (BENADRYL) 02:15: 01:14 Push, [place] injection 00 :00 ONCE, 1 Medical 25 mg dose, Wed Branch 11/23/20 at 2115, STAT ondansetron 2020- No 4mg 4 mg, Slow Univers (ZOFRAN 11-24 IV Push, ity of (PF)) 02:09: 14:57 Q6RN, [place] injection 4 01 :07 Starting Medi julieta mg Wed Branch 11/23/20 at 2109, Until Sat11/25/20 at 0957, Routine, Nausea and Vomiting (N/V) ondansetron 2020-0 2020- No 4mg 4 mg, Slow Univers (ZOFRAN 11-24 IV Push, ity of (PF)) 02:09: 14:57 Q6RN, [place] injection 4 01 :07 Starting Medi julieta mg Wed Branch 11/23/20 at 2109, Until Sat11/25/20 at 0957, Routine, Nausea and Vomiting (N/V) morpHINE 2020-2020- No 4mg 4 mg, Slow Un maddie injection 4 11-24 IV Push, ity [facility] mg [facility]:08: [facility] [place] [facility] Starting Medical Wed Branch 11/23/20 at 2108, Until [place] 11/24/20 at 2107, Routine, Pain (scale 7-10) morpHINE 2020- No 4mg 4 mg, Slow Un maddie injection 4 11-24 IV Push, ity of mg 02:08: [facility] [place] 57 :57 Starting Medical Wed Branch 11/23/20 at 210, Until [place] 11/24/20 at 210, Routine, Pain (scale 7-10) HYDROcodone 2020-2020- No 1{tbl} 1 tablet, Univers -acetaminop 11-24 Oral, ity of hen (NORCO 02:08: 22:59 Q6HPRN, [place] 5) 5-325 mg 54 :26 Starting Medi julieta tablet 1 Wed Branch tablet 11/23/20 at 2108, Until Sat11/25/20 at 1759, Routine, Pain (scale 4-6) HYDROcodone 2020-0 2020- No 1{tbl} 1 tablet, Univers -acetaminop 11-24 Oral, ity of hen (NORCO 02:08: 22:59 Q6HPRN, [place] 5) 5-325 mg 54 :26 Starting Medi julieta tablet 1 Sat [place] tablet 11/23/20 at 2108, Until Sat11/25/20 at 1759, Routine, Pain (scale 4-6) ondansetron 2020-2020- No 4mg 4 mg, Slow Univers (ZOFRAN 11-24 IV Push, ity of (PF)) 02:00: 01:06 ONCE, 1 [place] injection 4 00 :00 dose, Sat Med ical mg 11/23/20 at [place] 2100, KENIA morpHINE 2020- No 4mg 4 mg, Slow Un maddie injection 4 11-24 IV Push, ity of mg 02:00: 01:06 ONCE, 1 [place] 00 :00 dose, Sat Medical 11/23/20 at [place] 2100, STAT ondansetron 2020- No 4mg 4 mg, Slow Univers (ZOFRAN 11-24 IV Push, ity of (PF)) 02:00: 01:06 ONCE, 1 [place] injection 4 00 :00 dose, Sat Med ical mg 11/23/20 at [place] 2100, KENIA morpHINE 2020- No 4mg 4 mg, Slow Un maddie injection 4 11-24 IV Push, ity of mg 02:00: 01:06 ONCE, 1 [place] 00 :00 dose, [facility] Medical 11/23/20 at [place] 2100, STAT lactated 2020- No 1000mL at 1,000 Un maddie ringers IV 11-24 mL/hr, ity of infusion 01:45: 01:05 1,000 mL, Real as 1,000 mL 00 :00 IV Medical Infusion, [place] ONCE, 1 dose, Sat11/23/20 at 2044, Routine acetaminoph 2020- No 1000mg 1,000 mg, Univers en 11-24 Oral, ity of (TYLENOL) 01:45: 00:41 ONCE, 1 [place] tablet 00 :00 dose, Sat Medical 1,000 mg 11/23/20 at [facility] h 2044, KENIA lactated 2020- No 1000mL at 1,000 Un maddie ringers IV 11-24 mL/hr, ity of infusion 01:45: 01:05 1,000 mL, [place] 1,000 mL 00 :00 IV Medical Infusion, Branch ONCE, 1 dose, 11/23/20 at 2044, Routine acetaminoph 2020- No 1000mg 1,000 mg, Univers en 11-24 Oral, ity of (TYLENOL) 01:45: 00:41 ONCE, 1 [place] tablet 00 :00 dose, Wed Medical 1,000 mg 11/23/20 at [facility] 2044, KENIA iopamidol 2020- No [id number] 120mL 120 mL, Univers (ISOVUE 11-24 Intravenou ity o f 370-500 mL) 01:26: 01:27 s, ONCE, 1 [place] injection 00 :00 dose, Wed Medic al 120 mL 11/23/20 at [place] 2044, Routine iopamidol 2020- No [id number] 120mL 120 mL, Univers (ISOVUE 11-24 Intravenou ity o f 370-500 mL) 01:26: 01:27 s, ONCE, 1 [place] injection 00 :00 dose, Wed Medic al 120 mL 11/23/20 at [place] 2044, Routine levothyroxi 2020- No 125ug Take 125 Univers ne 125 mcg 8-10 08-10 mcg by ity of tablet 19:06: 00:00 mouth [place] 20 :00 every Medical other day. Branch levothyroxi 2020- No 125ug Take 125 Univers ne 125 mcg 8-10 08-10 mcg by ity of tablet 19:06: 00:00 mouth [place] 20 :00 every Medical other day. Branch levothyroxi 2020- No 125ug Take 125 Univers ne 125 mcg 8-10 08-10 mcg by ity of tablet 19:06: 00:00 mouth [place] 20 :00 every Medical other day. Branch LEVOTHYROXI Yes TAKE 1 Univ ers [place] 125 mcg 8-10 TABLET BY ity of tablet 00:00: MOUTH [place] 00 EVERY Medical OTHER DAY Branch ( ALTERNATIN G WITH 137MCG DOSE ) LEVOTHYROXI 2021-0 Yes TAKE 1 Univ ers [place] 125 mcg 8-10 TABLET BY ity of tablet 00:00: MOUTH [place] 00 EVERY Medical OTHER DAY Branch ( ALTERNATIN G WITH 137MCG DOSE ) LEVOTHYROXI 2020-0 Yes TAKE 1 Univ ers [place] 125 mcg 8-10 TABLET BY ity of tablet 00:00: MOUTH [place] 00 EVERY Medical OTHER DAY Branch ( ALTERNATIN G WITH 137MCG DOSE ) LEVOTHYROXI 2020-0 Yes TAKE 1 Univ ers [place] 125 mcg 8-10 TABLET BY ity of tablet 00:00: MOUTH [place] 00 EVERY Medical OTHER DAY Branch ( ALTERNATIN G WITH 137MCG DOSE ) LEVOTHYROXI 2020-0 Yes TAKE 1 Univ ers [place] 125 mcg 8-10 TABLET BY ity of tablet 00:00: MOUTH [place] 00 EVERY Medical OTHER DAY Branch ( ALTERNATIN G WITH 137MCG DOSE ) LEVOTHYROXI 2020-0 Yes TAKE 1 Univ ers [place] 125 mcg 8-10 TABLET BY ity of tablet 00:00: MOUTH 00 EVERY Medical OTHER DAY Branch ( ALTERNATIN G WITH 137MCG DOSE ) LEVOTHYROXI 2020-0 Yes TAKE 1 Univ ers [place] 125 mcg 8-10 TABLET BY ity of tablet 00:00: MOUTH [place] 00 EVERY Medical OTHER DAY Branch ( ALTERNATIN G WITH 137MCG DOSE ) LEVOTHYROXI 2020-0 Yes TAKE 1 Univ ers [place] 125 mcg 8-10 TABLET BY ity of tablet 00:00: MOUTH [place] 00 EVERY Medical OTHER DAY Branch ( ALTERNATIN G WITH 137MCG DOSE ) LEVOTHYROXI 2020-0 Yes TAKE 1 Univ ers [place] 125 mcg 8-10 TABLET BY ity of tablet 00:00: MOUTH [place] 00 EVERY Medical OTHER DAY Branch ( ALTERNATIN G WITH 137MCG DOSE ) LEVOTHYROXI 2020-0 Yes TAKE 1 Univ ers [place] 125 mcg 8-10 TABLET BY ity of tablet 00:00: MOUTH [place] 00 EVERY Medical OTHER DAY Branch ( ALTERNATIN G WITH 137MCG DOSE ) LEVOTHYROXI 2020-0 Yes TAKE 1 Univ ers [place] 125 mcg 8-10 TABLET BY ity of tablet 00:00: MOUTH [place] 00 EVERY Medical OTHER DAY Branch ( ALTERNATIN G WITH 137MCG DOSE ) LEVOTHYROXI 2020-0 Yes TAKE 1 Univ ers [place] 125 mcg 8-10 TABLET BY ity of tablet 00:00: MOUTH [place] 00 EVERY Medical OTHER DAY Branch ( ALTERNATIN G WITH 137MCG DOSE ) LEVOTHYROXI 2020-0 Yes TAKE 1 Univ ers [place] 125 mcg 8-10 TABLET BY ity of tablet 00:00: MOUTH [place] 00 EVERY Medical OTHER DAY Branch ( ALTERNATIN G WITH 137MCG DOSE ) LEVOTHYROXI 2020-0 Yes TAKE 1 Univ ers [place] 125 mcg 8-10 TABLET BY ity of tablet 00:00: MOUTH [place] 00 EVERY Medical OTHER DAY Branch ( ALTERNATIN G WITH 137MCG DOSE ) LEVOTHYROXI 2020-0 Yes TAKE 1 Univ ers [place] 125 mcg 8-10 TABLET BY ity of tablet 00:00: MOUTH [place] 00 EVERY Medical OTHER DAY Branch ( ALTERNATIN G WITH 137MCG DOSE ) LEVOTHYROXI 2020-0 Yes TAKE 1 Univ ers [place] 125 mcg 8-10 TABLET BY ity of tablet 00:00: MOUTH [place] 00 EVERY Medical OTHER DAY Branch ( ALTERNATIN G WITH 137MCG DOSE ) LEVOTHYROXI 2020-0 Yes TAKE 1 Univ ers [place] 125 mcg 8-10 TABLET BY ity of tablet 00:00: MOUTH [place] 00 EVERY Medical OTHER DAY Branch ( ALTERNATIN G WITH 137MCG DOSE ) LEVOTHYROXI 2020-0 Yes TAKE 1 Univ ers [place] 125 mcg 8-10 TABLET BY ity of tablet 00:00: MOUTH [place] 00 EVERY Medical OTHER DAY Branch ( ALTERNATIN G WITH 137MCG DOSE ) LEVOTHYROXI 2020-0 Yes TAKE 1 Univ ers [place] 125 mcg 8-10 TABLET BY ity of tablet 00:00: MOUTH [place] 00 EVERY Medical OTHER DAY Branch ( ALTERNATIN G WITH 137MCG DOSE ) LEVOTHYROXI 2020-0 Yes TAKE 1 Univ ers [place] 125 mcg 8-10 TABLET BY ity of tablet 00:00: MOUTH [place] 00 EVERY Medical OTHER DAY Branch ( ALTERNATIN G WITH 137MCG DOSE ) LEVOTHYROXI 2020-0 Yes TAKE 1 Univ ers [place] 125 mcg 8-10 TABLET BY ity of tablet 00:00: MOUTH [place] 00 EVERY Medical OTHER DAY Branch ( ALTERNATIN G WITH 137MCG DOSE ) LEVOTHYROXI 2020-0 2020- No TAKE 1 Uni vers [place] 125 mcg 8-10 11-10 TABLET BY ity of tablet 00:00: 00:00 MOUTH [place] 00 :00 EVERY Medical OTHER DAY Branch ( ALTERNATIN G WITH 137MCG DOSE ) HYDROcodone 2020- No 1{tbl} 1 tablet, Univers -acetaminop 10-31 Oral, ity of hen (NORCO) 08:15: 07:12 ONCE, 1 [place] 10-325 mg 00 :00 dose, Mon Medic al tablet 1 10/31/20 at [place] tablet 0315, Routine FENTanyl PF 2020- No 50ug 50 mcg, Un maddie (SUBLIMAZE 10-31 Slow IV ity o f (PF)) 07:45: 06:40 Push, [place] injection 00 :00 ONCE, 1 Medical 50 mcg dose, [facility] 10/31/20 at 0245, STAT iopamidol 2020- No [id number] 100mL 100 mL, Univers (ISOVUE 10-31 107 Intravenou ity o f 370-500 mL) 07:30: 06:15 s, ONCE, 1 [place] injection 00 :00 dose, Mon Medic al 100 mL 10/31/20 at [place] 0230, Routine ondansetron No 4mg 4 mg, Slow Univers (ZOFRAN 10-31 IV Push, ity of (PF)) 06:45: 05:44 ONCE, 1 [place] injection 4 00 :00 dose, Mon Med ical mg 10/31/20 at [place] 0145, KENIA diphenhydrA No 25mg 25 mg, Uni vers MINE 10-31 Slow IV ity of (BENADRYL) 06:45: 05:44 Push, [place] injection 00 :00 ONCE, 1 Medical 25 mg dose, [facility] 10/31/20 at 0145, STAT Potassium 2020- No 40meq 40 mEq, Uni vers Bicarb-Citr 10-31 Oral, ONCE i ty of ic Acid 06:45: 05:39 NOW, 1 [place] (EFFER-K) 00 :00 dose, Mon Medic al effervescen 10/31/20 at [facility] t tablet 40 0145, mEq Routine ondansetron 2020- No 4mg 4 mg, Slow Univers (ZOFRAN 10-31 IV Push, ity of (PF)) 06:00: 05:17 ONCE, 1 [place] injection 4 00 :00 dose, Mon Med ical mg 10/31/20 at Branch 0100, KENIA FENTanyl PF 2020-2020- No 50ug 50 mcg, Un maddie (SUBLIMAZE 10-31 Slow IV ity o f (PF)) 06:00: 05:17 Push, [place] injection 00 :00 ONCE, 1 Medical 50 mcg dose, Mon Branch 10/31/20 at 0100, Routine lipase-prot Yes [id number] 1{capsu Take 1 Univers ease-amylas 8-02 107 le} capsule by it y of e (CREON) 00:00: mouth 3 [place] 12,000-38,0 00 (three) Medic al 00 -60,000 times Branch unit daily with capsule meals. ondansetron Yes [id number] 4mg Take 1 Univers (ZOFRAN) 4 8-02 tablet by ity of mg tablet 00:00: mouth [place] 00 every 8 Medical (eight) Branch hours as needed for Nausea and Vomiting (N/V). pantoprazol Yes [id number] 40mg Take 1 Univers e 8-02 tablet by ity of (PROTONIX) 00:00: mouth [place] 40 mg EC 00 daily. Medical tablet Branch lipase-prot Yes [id number] 1{capsu Take 1 Univers ease-amylas 8-02 107 le} capsule by it y of e (CREON) 00:00: mouth 3 [place] 12,000-38,0 00 (three) Medic al 00 -60,000 times Branch unit daily with capsule meals. ondansetron Yes [id number] 4mg Take 1 Univers (ZOFRAN) 4 8-02 tablet by ity of mg tablet 00:00: mouth [place] 00 every 8 Medical (eight) Branch hours as needed for Nausea and Vomiting (N/V). pantoprazol Yes [id number] 40mg Take 1 Univers e 8-02 tablet by ity of (PROTONIX) 00:00: mouth [place] 40 mg EC 00 daily. Medical tablet Branch lipase-prot Yes [id number] 1{capsu Take 1 Univers ease-amylas 8-02 107 le} capsule by it y of e (CREON) 00:00: mouth 3 [place] 12,000-38,0 00 (three) Medic al 00 -60,000 times Branch unit daily with capsule meals. ondansetron 2020-0 Yes [id number] 4mg Take 1 Univers (ZOFRAN) 4 8-02 tablet by ity of mg tablet 00:00: mouth [place] 00 every 8 Medical (eight) Branch hours as needed for Nausea and Vomiting (N/V). pantoprazol 2020-0 Yes [id number] 40mg Take 1 Univers e 8-02 tablet by ity of (PROTONIX) 00:00: mouth [place] 40 mg EC 00 daily. Medical tablet Branch lipase-prot 2020-0 Yes [id number] 1{capsu Take 1 Univers ease-amylas 8-02 107 le} capsule by it y of e (CREON) 00:00: mouth 3 [place] 12,000-38,0 00 (three) Medic al 00 -60,000 times Branch unit daily with capsule meals. ondansetron 2020-0 Yes [id number] 4mg Take 1 Univers (ZOFRAN) 4 8-02 tablet by ity of mg tablet 00:00: mouth [place] 00 every 8 Medical (eight) Branch hours as needed for Nausea and Vomiting (N/V). pantoprazol 2020-0 Yes [id number] 40mg Take 1 Univers e 8-02 tablet by ity of (PROTONIX) 00:00: mouth [place] 40 mg EC 00 daily. Medical tablet Branch lipase-prot 2020-0 Yes [id number] 1{capsu Take 1 Univers ease-amylas 8-02 107 le} capsule by it y of e (CREON) 00:00: mouth 3 [place] 12,000-38,0 00 (three) Medic al 00 -60,000 times Branch unit daily with capsule meals. ondansetron 2020-0 Yes [id number] 4mg Take 1 Univers (ZOFRAN) 4 8-02 tablet by ity of mg tablet 00:00: mouth [place] 00 every 8 Medical (eight) Branch hours as needed for Nausea and Vomiting (N/V). pantoprazol 2020-0 Yes [id number] 40mg Take 1 Univers e 8-02 tablet by ity of (PROTONIX) 00:00: mouth [place] 40 mg EC 00 daily. Medical tablet Branch lipase-prot 2020-0 Yes [id number] 1{capsu Take 1 Univers ease-amylas 8-02 107 le} capsule by it y of e (CREON) 00:00: mouth 3 [place] 12,000-38,0 00 (three) Medic al 00 -60,000 times Branch unit daily with capsule meals. ondansetron Yes [id number] 4mg Take 1 Univers (ZOFRAN) 4 8-02 tablet by ity of mg tablet 00:00: mouth [place] 00 every 8 Medical (eight) Branch hours as needed for Nausea and Vomiting (N/V). pantoprazol Yes [id number] 40mg Take 1 Univers e 8-02 tablet by ity of (PROTONIX) 00:00: mouth [place] 40 mg EC 00 daily. Medical tablet Branch lipase-prot Yes [id number] 1{capsu Take 1 Univers ease-amylas 8- 107 le} capsule by it y of e (CREON) 00:00: mouth 3 [place] 12,000-38,0 00 (three) Medic al 00 -60,000 times Branch unit daily with capsule meals. ondansetron Yes [id number] 4mg Take 1 Univers (ZOFRAN) 4 8-02 tablet by ity of mg tablet 00:00: mouth [place] 00 every 8 Medical (eight) Branch hours as needed for Nausea and Vomiting (N/V). pantoprazol Yes [id number] 40mg Take 1 Univers e 8-02 tablet by ity of (PROTONIX) 00:00: mouth [place] 40 mg EC 00 daily. Medical tablet Branch lipase-prot 2020- No [id number] 1{capsu Take 1 Univers ease-amylas -05 10- 107 le} capsule by i ty of e (CREON) 00:00: 00:00 mouth 3 [place] 12,000-38,0 00 :00 (three) Medic al 00 -60,000 times Branch unit daily with capsule meals. ondansetron 0 2020- No [id number] 4mg Take 1 Univers (ZOFRAN) 4 8-05 10-01 tablet by ity of mg tablet 00:00: 00:00 mouth [place] 00 :00 every 8 Medical (eight) Branch hours as needed for Nausea and Vomiting (N/V). pantoprazol [id number] No [id number] 40mg Take 1 Univers e 10-31 tablet by ity of (PROTONIX) 00:00: 00:00 mouth [place] 40 mg EC 00 :00 daily. Medical tablet Branch lipase-prot 2020- No [id number] 1{capsu Take 1 Univers ease-amylas 10-31 107 le} capsule by i ty of e (CREON) 00:00: 00:00 mouth 3 [place] 12,000-38,0 00 :00 (three) Medic al 00 -60,000 times Branch unit daily with capsule meals. ondansetron 2020- No [id number] 4mg Take 1 Univers (ZOFRAN) 4 10-31 tablet by ity of mg tablet 00:00: 00:00 mouth [place] 00 :00 every 8 Medical (eight) Branch hours as needed for Nausea and Vomiting (N/V). pantoprazol 2020- No [id number] 40mg Take 1 Univers e 10-31 tablet by ity of (PROTONIX) 00:00: 00:00 mouth [place] 40 mg EC 00 :00 daily. Medical tablet Branch HYDROcodone No [id number] 1{tbl} Take 1 U nivers -acetaminop 8-02 08-10 tablet by it y of hen (NORCO) 00:00: 04:59 mouth [place] 10-325 mg 00 :00 every 6 Medical tablet (six) Branch hours as needed for Pain (scale 7-10) for up to 7 days. Indication s: acute pain [place]DROcodone No [id number] 1{tbl} Take 1 U nivers -acetaminop 8-02 08-10 tablet by it y of hen (NORCO) 00:00: 04:59 mouth [place] 10-325 mg 00 :00 every 6 Medical tablet (six) Branch hours as needed for Pain (scale 7-10) for up to 7 days. Indication s: acute pain HYDROcodone No 4647 1{tbl} Take 1 U nivers -acetaminop 8-02 08-10 tablet by it y of hen (NORCO) 00:00: 04:59 mouth [place] 10-325 mg 00 :00 every 6 Medical tablet (six) Branch hours as needed for Pain (scale 7-10) for up to 7 days. Indication s: acute pain HYDROcodone 2020- No [id number] 1{tbl} Take 1 U nivers -acetaminop 8-02 08-10 tablet by it y of hen (NORCO) 00:00: 04:59 mouth [place] 10-325 mg 00 :00 every 6 Medical tablet (six) Branch hours as needed for Pain (scale 7-10) for up to 7 days. Indication s: acute pain lipase-prot Yes [id number] 1{capsu Take 1 Univers ease-amylas 7-31 le} capsule by it y of e 00:00: mouth 3 [place] 12,000-38,0 00 (three) Medic al 00 -60,000 times Branch unit daily with capsule meals. lipase-prot Yes [id number] 1{capsu Take 1 Univers ease-amylas 7-31 le} capsule by it y of e 00:00: mouth 3 [place] 12,000-38,0 00 (three) Medic al 00 -60,000 times Branch unit daily with capsule meals. lipase-prot Yes [id number] 1{capsu Take 1 Univers ease-amylas 7-31 le} capsule by it y of e 00:00: mouth 3 [place] 12,000-38,0 00 (three) Medic al 00 -60,000 times Branch unit daily with capsule meals. lipase-prot Yes [id number] 1{capsu Take 1 Univers ease-amylas 7-31 le} capsule by it y of e 00:00: mouth 3 [place] 12,000-38,0 00 (three) Medic al 00 -60,000 times Branch unit daily with capsule meals. lipase-prot Yes [id number] 1{capsu Take 1 Univers ease-amylas 7-31 le} capsule by it y of e 00:00: mouth 3 [place] 12,000-38,0 00 (three) Medic al 00 -60,000 times Branch unit daily with capsule meals. lipase-prot Yes [id number] 1{capsu Take 1 Univers ease-amylas 7-31 le} capsule by it y of e 00:00: mouth 3 [place] 12,000-38,0 00 (three) Medic al 00 -60,000 times Branch unit daily with capsule meals. lipase-prot Yes [id number] 1{capsu Take 1 [facility] ease-amylas 7-31 le} capsule by it y of e 00:00: mouth 3 [place] 12,000-38,0 00 (three) Medic al 00 -60,000 times Branch unit daily with capsule meals. lipase-prot Yes [id number] 1{capsu Take 1 [facility] ease-amylas 7-31 le} capsule by it y of e 00:00: mouth 3 [place] 12,000-38,0 00 (three) Medic al 00 -60,000 times Branch unit daily with capsule meals. lipase-prot 2020- No [id number] 1{capsu Take 1 Univers ease-amylas 7-31 09-01 le} capsule by i ty of e 00:00: 00:00 mouth 3 [place] 12,000-38,0 00 :00 (three) Medic al 00 -60,000 times Branch unit daily with capsule meals. lipase-prot 2020- No [id number] 1{capsu Take 1 Univers ease-amylas 7-31 09-01 le} capsule by i ty of e 00:00: 00:00 mouth 3 [place] 12,000-38,0 00 :00 (three) Medic al 00 -60,000 times Branch unit daily with capsule meals. morpHINE 2020- No 4mg 4 mg, Slow Un maddie injection 4 -20 07-20 IV Push, ity of mg 10:00: 09:01 ONCE NOW, [place] 00 :00 1 dose, Medical e [place] 10/18/20 at 0500, Routine ondansetron 2020- No 4mg 4 mg, Slow [facility] (ZOFRAN 7-20 07-20 IV Push, ity of (PF)) 09:15: 09:10 ONCE, 1 [place] injection 4 00 :00 dose, Tue Med ical mg 10/18/20 at Branch 0415, KENIA ondansetron 2020- No 4mg 4 mg, Slow [facility] (ZOFRAN 7-20 07-20 IV Push, ity of (PF)) 08:30: 07:55 ONCE, 1 [place] injection 4 00 :00 dose, Tue Med ical mg 10/18/20 at Branch 0330, Routine iopamidol 2020- No [id number] 120mL 120 mL, [facility] (ISOVUE 10-1820 Intravenou ity o f 370-500 mL) 08:03: 08:03 s, ONCE, 1 [place] injection 00 :00 dose, Tue Medic al 120 mL 10/18/20 at Branch 0315, Routine NaCl 0.9% 2020- No 1000mL at 999 Uni vers (NS) bolus 10-1820 mL/hr, ity of infusion 07:30: 09:20 1,000 mL, [place] 1,000 mL 00 :00 IV Medical Infusion, Branch ONCE, 1 dose, 10/18/20 at 0230, STAT morpHINE No 4mg 4 mg, Slow Un maddie injection 4 10-1820 IV Push, ity of mg 07:23: 08:58 Q4HPRN, [place] 14 :09 Starting Medical Tue Branch 10/18/20 at 0223, Until 10/18/20 at 0358, Routine, Pain (scale 7-10) ondansetron Yes [id number] 4mg Take 1 [facility] 4 mg 7-20 tablet by ity of disintegrat 00:00: mouth [place] ing tablet 00 every 8 Medica l (eight) Branch hours as needed for Nausea and Vomiting (N/V). ondansetron Yes [id number] 4mg Take 1 [facility] 4 mg 7-20 tablet by ity of disintegrat 00:00: mouth [place] ing tablet 00 every 8 Medica l (eight) Branch hours as needed for Nausea and Vomiting (N/V). ondansetron Yes [id number] 4mg Take 1 [facility] 4 mg 7-20 tablet by ity of disintegrat 00:00: mouth [place] ing tablet 00 every 8 Medica l (eight) Branch hours as needed for Nausea and Vomiting (N/V). ondansetron Yes [id number] 4mg Take 1 [facility] 4 mg 7-20 tablet by ity of disintegrat 00:00: mouth [place] ing tablet 00 every 8 Medica l (eight) Branch hours as needed for Nausea and Vomiting (N/V). ondansetron Yes [id number] 4mg Take 1 [facility] 4 mg 7-20 tablet by ity of disintegrat 00:00: mouth [place] ing tablet 00 every 8 Medica l (eight) Branch hours as needed for Nausea and Vomiting (N/V). ondansetron Yes [id number] 4mg Take 1 [facility] 4 mg 7-20 tablet by ity of disintegrat 00:00: mouth [place] ing tablet 00 every 8 Medica l (eight) Branch hours as needed for Nausea and Vomiting (N/V). ondansetron Yes [id number] 4mg Take 1 [facility] 4 mg 7-20 tablet by ity of disintegrat 00:00: mouth [place] ing tablet 00 every 8 Medica l (eight) Branch hours as needed for Nausea and Vomiting (N/V). ondansetron Yes [id number] 4mg Take 1 [facility] 4 mg 7-20 tablet by ity of disintegrat 00:00: mouth [place] ing tablet 00 every 8 Medica l (eight) Branch hours as needed for Nausea and Vomiting (N/V). ondansetron Yes [id number] 4mg Take 1 [facility] 4 mg 7-20 tablet by ity of disintegrat 00:00: mouth [place] ing tablet 00 every 8 Medica l (eight) Branch hours as needed for Nausea and Vomiting (N/V). ondansetron Yes [id number] 4mg Take 1 [facility] 4 mg 7-20 tablet by ity of disintegrat 00:00: mouth [place] ing tablet 00 every 8 Medica l (eight) Branch hours as needed for Nausea and Vomiting (N/V). ondansetron 2020- No [id number] 4mg Take 1 [facility] 4 mg 7-20 - tablet by ity of disintegrat 00:00: 00:00 [place] tablet 00 :00 every 8 Medica l (eight) Branch hours as needed for Nausea and Vomiting (N/V). ondansetron 2021- No [id number] 4mg Take 1 [facility] 4 mg 7-20 - tablet by ity of disintegrat 00:00: 00:00 [place] tablet 00 :00 every 8 Medica l (eight) Branch hours as needed for Nausea and Vomiting (N/V). Tramadol 2020- No [id number] 100mg Take 1 Unive rs 100 mg 10-18 tablet by ity of tablet 00:00: 04:59 mouth [place] 00 :00 daily for Medical 7 days. Branch Indication s: acute pain Tramadol 2020- No [id number] 100mg Take 1 Unive rs 100 mg 10-18 tablet by ity of tablet 00:00: 04:59 mouth [place] 00 :00 daily for Medical 7 days. Branch Indication s: acute pain ondansetron 2020- No 4mg 4 mg, Slow [facility] (ZOFRAN -13 10-15 IV Push, ity of (PF)) 10:00: 09:05 ONCE, 1 [place] injection 4 00 :00 dose, [place] Med ical mg 10/13/20 at Branch 0500, KENIA FENTanyl PF No 50ug 50 mcg, Un maddie (SUBLIMAZE 10-13-15 Slow IV ity o f (PF)) 10:00: 09:05 Push, [place] injection 00 :00 ONCE, 1 Medical 50 mcg dose, [place] Branch 10/13/20 at 0500, Routine ondansetron 2020- No 4mg 4 mg, Slow [facility] (ZOFRAN -13 10-15 IV Push, ity of (PF)) 09:15: 08:12 ONCE, 1 [place] injection 4 00 :00 dose, [place] Med ical mg 10/13/20 at Branch 0415, KENIA FENTanyl PF No 50ug 50 mcg, Un maddie (SUBLIMAZE 10-13-15 Slow IV ity o f (PF)) 09:15: 08:12 Push, [place] injection 00 :00 ONCE, 1 Medical 50 mcg dose, [facility] Branch 10/13/20 at 0415, Routine NaCl 0.9% No 1000mL at 999 Uni vers (NS) IV 10-13-15 mL/hr, ity of infusion 09:15: 10:00 Intravenou [place] 1,000 mL 00 :30 s, Medical CONTINUOUS Branch , Starting [place] 10/13/20 at 0415, Until [place] 10/13/20 at 0500, Routine dicyclomine 2021-0 Yes [id number] 20mg Take 1 [facility] 20 mg 7-15 tablet by ity of tablet 00:00: mouth [place] 00 every 6 Medical (six) Branch hours as needed for Abdominal pain. ondansetron 2021-0 Yes [id number] 4mg Take 1 [facility] (ZOFRAN) 4 7-15 tablet by ity of mg tablet 00:00: mouth [place] 00 every 8 Medical (eight) Branch hours as needed for Nausea and Vomiting (N/V). dicyclomine 2021-0 Yes [id number] 20mg Take 1 [facility] 20 mg 7-15 tablet by ity of tablet 00:00: mouth [place] 00 every 6 Medical (six) Branch hours as needed for Abdominal pain. ondansetron 2020-0 Yes [id number] 4mg Take 1 [facility] (ZOFRAN) 4 7-15 tablet by ity of mg tablet 00:00: mouth [place] 00 every 8 Medical (eight) Branch hours as needed for Nausea and Vomiting (N/V). dicyclomine 1-0 Yes [id number] 20mg Take 1 [facility] 20 mg 7-15 tablet by ity of tablet 00:00: mouth [place] 00 every 6 Medical (six) Branch hours as needed for Abdominal pain. ondansetron 1-0 Yes [id number] 4mg Take 1 [facility] (ZOFRAN) 4 7-15 tablet by ity of mg tablet 00:00: mouth [place] 00 every 8 Medical (eight) Branch hours as needed for Nausea and Vomiting (N/V). dicyclomine 2021-0 Yes [id number] 20mg Take 1 [facility] 20 mg 7-15 tablet by ity of tablet 00:00: mouth [place] 00 every 6 Medical (six) Branch hours as needed for Abdominal pain. ondansetron 2021-0 Yes [id number] 4mg Take 1 [facility] (ZOFRAN) 4 7-15 tablet by ity of mg tablet 00:00: mouth [place] 00 every 8 Medical (eight) Branch hours as needed for Nausea and Vomiting (N/V). dicyclomine 2021-0 Yes [id number] 20mg Take 1 [facility] 20 mg 7-15 tablet by ity of tablet 00:00: mouth [place] 00 every 6 Medical (six) Branch hours as needed for Abdominal pain. ondansetron 1-0 Yes [id number] 4mg Take 1 [facility] (ZOFRAN) 4 7-15 tablet by ity of mg tablet 00:00: mouth [place] 00 every 8 Medical (eight) Branch hours as needed for Nausea and Vomiting (N/V). dicyclomine 2021-0 Yes [id number] 20mg Take 1 [facility] 20 mg 7-15 tablet by ity of tablet 00:00: mouth [place] 00 every 6 Medical (six) Branch hours as needed for Abdominal pain. ondansetron 2020-0 Yes [id number] 4mg Take 1 [facility] (ZOFRAN) 4 7-15 tablet by ity of mg tablet 00:00: mouth [place] 00 every 8 Medical (eight) Branch hours as needed for Nausea and Vomiting (N/V). dicyclomine 1-0 Yes [id number] 20mg Take 1 [facility] 20 mg 7-15 tablet by ity of tablet 00:00: mouth [place] 00 every 6 Medical (six) Branch hours as needed for Abdominal pain. ondansetron 2020-0 Yes [id number] 4mg Take 1 [facility] (ZOFRAN) 4 7-15 tablet by ity of mg tablet 00:00: mouth [place] 00 every 8 Medical (eight) Branch hours as needed for Nausea and Vomiting (N/V). ondansetron 1-0 Yes [id number] 4mg Take 1 [facility] (ZOFRAN) 4 7-15 tablet by ity of mg tablet 00:00: mouth [place] 00 every 8 Medical (eight) Branch hours as needed for Nausea and Vomiting (N/V). dicyclomine 2021-0 Yes [id number] 20mg Take 1 [facility] 20 mg 7-15 tablet by ity of tablet 00:00: mouth [place] 00 every 6 Medical (six) Branch hours as needed for Abdominal pain. ondansetron 2021-0 Yes [id number] 4mg Take 1 [facility] (ZOFRAN) 4 7-15 tablet by ity of mg tablet 00:00: mouth [place] 00 every 8 Medical (eight) Branch hours as needed for Nausea and Vomiting (N/V). dicyclomine 2021-0 Yes [id number] 20mg Take 1 [facility] 20 mg 7-15 tablet by ity of tablet 00:00: mouth [place] 00 every 6 Medical (six) Branch hours as needed for Abdominal pain. ondansetron 2020-0 Yes [id number] 4mg Take 1 [facility] (ZOFRAN) 4 7-15 tablet by ity of mg tablet 00:00: mouth [place] 00 every 8 Medical (eight) Branch hours as needed for Nausea and Vomiting (N/V). dicyclomine 2020-0 Yes [id number] 20mg Take 1 [facility] 20 mg 7-15 tablet by ity of tablet 00:00: mouth [place] 00 every 6 Medical (six) Branch hours as needed for Abdominal pain. ondansetron 2020-0 Yes [id number] 4mg Take 1 [facility] (ZOFRAN) 4 7-15 tablet by ity of mg tablet 00:00: mouth [place] 00 every 8 Medical (eight) Branch hours as needed for Nausea and Vomiting (N/V). dicyclomine 2020-0 Yes [id number] 20mg Take 1 [facility] 20 mg 7-15 tablet by ity of tablet 00:00: mouth [place] 00 every 6 Medical (six) Branch hours as needed for Abdominal pain. ondansetron 2020-0 Yes [id number] 4mg Take 1 [facility] (ZOFRAN) 4 7-15 tablet by ity of mg tablet 00:00: mouth [place] 00 every 8 Medical (eight) Branch hours as needed for Nausea and Vomiting (N/V). ondansetron 2020-0 Yes [id number] 4mg Take 1 [facility] (ZOFRAN) 4 7-15 tablet by ity of mg tablet 00:00: mouth [place] 00 every 8 Medical (eight) Branch hours as needed for Nausea and Vomiting (N/V). ondansetron 2020-0 Yes [id number] 4mg Take 1 [facility] (ZOFRAN) 4 7-15 tablet by ity of mg tablet 00:00: mouth [place] 00 every 8 Medical (eight) Branch hours as needed for Nausea and Vomiting (N/V). ondansetron 2021-0 Yes [id number] 4mg Take 1 [facility] (ZOFRAN) 4 7-15 tablet by ity of mg tablet 00:00: mouth [place] 00 every 8 Medical (eight) Branch hours as needed for Nausea and Vomiting (N/V). ondansetron 1-0 Yes [id number] 4mg Take 1 [facility] (ZOFRAN) 4 7-15 tablet by ity of mg tablet 00:00: mouth [place] 00 every 8 Medical (eight) Branch hours as needed for Nausea and Vomiting (N/V). ondansetron 0 Yes [id number] 4mg Take 1 [facility] (ZOFRAN) 4 7-15 tablet by ity of mg tablet 00:00: mouth [place] 00 every 8 Medical (eight) Branch hours as needed for Nausea and Vomiting (N/V). ondansetron Yes [id number] 4mg Take 1 [facility] (ZOFRAN) 4 7-15 tablet by ity of mg tablet 00:00: mouth [place] 00 every 8 Medical (eight) Branch hours as needed for Nausea and Vomiting (N/V). ondansetron 0 Yes [id number] 4mg Take 1 [facility] (ZOFRAN) 4 7-15 tablet by ity of mg tablet 00:00: mouth [place] 00 every 8 Medical (eight) Branch hours as needed for Nausea and Vomiting (N/V). ondansetron Yes [id number] 4mg Take 1 [facility] (ZOFRAN) 4 7-15 tablet by ity of mg tablet 00:00: mouth [place] 00 every 8 Medical (eight) Branch hours as needed for Nausea and Vomiting (N/V). ondansetron 0 Yes [id number] 4mg Take 1 [facility] (ZOFRAN) 4 7-15 tablet by ity of mg tablet 00:00: mouth [place] 00 every 8 Medical (eight) Branch hours as needed for Nausea and Vomiting (N/V). ondansetron 0 Yes [id number] 4mg Take 1 [facility] (ZOFRAN) 4 7-15 tablet by ity of mg tablet 00:00: mouth [place] 00 every 8 Medical (eight) Branch hours as needed for Nausea and Vomiting (N/V). ondansetron 0 Yes [id number] 4mg Take 1 [facility] (ZOFRAN) 4 7-15 tablet by ity of mg tablet 00:00: mouth [place] 00 every 8 Medical (eight) Branch hours as needed for Nausea and Vomiting (N/V). ondansetron 0 Yes [id number] 4mg Take 1 [facility] (ZOFRAN) 4 7-15 tablet by ity of mg tablet 00:00: mouth [place] 00 every 8 Medical (eight) Branch hours as needed for Nausea and Vomiting (N/V). ondansetron Yes [id number] 4mg Take 1 [facility] (ZOFRAN) 4 7-15 tablet by ity of mg tablet 00:00: mouth [place] 00 every 8 Medical (eight) Branch hours as needed for Nausea and Vomiting (N/V). ondansetron Yes [id number] 4mg Take 1 [facility] (ZOFRAN) 4 7-15 tablet by ity of mg tablet 00:00: mouth [place] 00 every 8 Medical (eight) Branch hours as needed for Nausea and Vomiting (N/V). ondansetron 2020- No [id number] 4mg Take 1 [facility] (ZOFRAN) 4 7-15 10-30 tablet by ity of mg tablet 00:00: 00:00 mouth [place] 00 :00 every 8 Medical (eight) Branch hours as needed for Nausea and Vomiting (N/V). dicyclomine 2020- No [id number] 20mg Take 1 [facility] 20 mg 7-15 - tablet by ity of tablet 00:00: 00:00 mouth [place] 00 :00 every 6 Medical (six) Branch hours as needed for Abdominal pain. dicyclomine 2020- No [id number] 20mg Take 1 [facility] 20 mg 7-15 - tablet by ity of tablet 00:00: 00:00 mouth [place] 00 :00 every 6 Medical (six) Branch hours as needed for Abdominal pain. HYDROcodone 2020- No [id number] 1{tbl} Take 1 U nivers -acetaminop 7-15 07-23 tablet by it y of hen (NORCO) 00:00: 04:59 mouth [place] 10-325 mg 00 :00 every 6 Medical tablet (six) Branch hours as needed for Pain (scale 7-10) for up to 7 days. Indication s: acute pain HYDROcodone 2020- No 4647 1{tbl} Take 1 U nivers -acetaminop 7-15 07-23 tablet by it y of hen (NORCO) 00:00: 04:59 mouth [place] 10-325 mg 00 :00 every 6 Medical tablet (six) Branch hours as needed for Pain (scale 7-10) for up to 7 days. Indication s: acute pain nicotine Yes 1{patch Apply 1 [facility] mg/24 hr 7-05 } Patch to ity of patch 21:44: area(s) [place] 36 every 24 Medical (twenty-fo Branch ur) hours. clopidogreL Yes 75mg Take 75 mg Univers (PLAVIX) 75 7-05 by mouth ity of mg tablet 21:44: daily. [place] [address] Medical Branch aspirin 81 Yes 81mg Take 81 mg U nivers mg EC 7-05 by mouth ity of tablet 21:44: daily. [address] Branch ferrous Yes 300mg Take 300 Unive rs sulfate 300 7-05 mg by ity of mg (60 mg 21:44: mouth 2 [place] iron)/5 mL 36 (two) Medical solution times Branch daily. atorvastati Yes 80mg Take 80 mg Univers n 80 mg 7-05 by mouth ity of tablet 21:44: at [place] [address] bedtime. Medical Branch albuterol Yes 2.5mg Inhale 2.5 U nivers 2.5 mg /3 7-05 mg every 4 ity of mL (0.083 21:44: (four) [place] %) 36 hours as Medical nebulizer needed for Bran ch solution Wheezing, Shortness of Breath or Bronchospa sm. melatonin 3 Yes 6mg Take 6 mg U nivers mg tablet 7-05 by mouth ity of 21:44: at [place] [address] bedtime. Medical Branch nicotine Yes 1{patch Apply 1 [facility] mg/24 hr 7-05 } Patch to ity of patch 21:44: area(s) [place] 36 every 24 Medical (twenty-fo Branch ur) hours. clopidogreL Yes 75mg Take 75 mg [facility] (PLAVIX) 75 7-05 by mouth ity of mg tablet 21:44: daily. [place] [address] Medical Branch aspirin 81 Yes 81mg Take 81 mg U nivers mg EC 7-05 by mouth ity of tablet 21:44: daily. [address] Branch ferrous Yes 300mg Take 300 Unive rs sulfate 300 7-05 mg by ity of mg (60 mg 21:44: mouth 2 [place] iron)/5 mL 36 (two) Medical solution times Branch daily. atorvastati Yes 80mg Take 80 mg Univers n 80 mg 7-05 by mouth ity of tablet 21:44: at [place] [address] bedtime. Medical Branch albuterol Yes 2.5mg Inhale 2.5 U nivers 2.5 mg /3 7-05 mg every 4 ity of mL (0.083 21:44: (four) [place] %) 36 hours as Medical nebulizer needed for Bran ch solution Wheezing, Shortness of Breath or Bronchospa sm. melatonin 3 Yes 6mg Take 6 mg U nivers mg tablet 7-05 by mouth ity of 21:44: at [place] [address] bedtime. Medical Branch nicotine 21 Yes 1{patch Apply 1 [facility] mg/24 hr 7-05 } Patch to ity of patch 21:44: area(s) [place] [address] every 24 Medical (twenty-fo Branch ur) hours. clopidogreL Yes 75mg Take 75 mg [facility] (PLAVIX) 75 7-05 by mouth ity of mg tablet 21:44: daily. [address] Branch aspirin 81 Yes 81mg Take 81 mg U nivers mg EC 7-05 by mouth ity of tablet 21:44: daily. [place] [address] Medical Branch ferrous Yes 300mg Take 300 Unive rs sulfate 300 7-05 mg by ity of mg (60 mg 21:44: mouth 2 [place] iron)/5 mL 36 (two) Medical solution times [place] daily. atorvastati Yes 80mg Take 80 mg Univers n 80 mg 7-05 by mouth ity of tablet 21:44: at [place] [address] bedtime. Medical Branch albuterol Yes 2.5mg Inhale 2.5 U nivers 2.5 mg /3 7-05 mg every 4 ity of mL (0.083 21:44: (four) [place] %) 36 hours as Medical nebulizer needed for Bran ch solution Wheezing, Shortness of Breath or Bronchospa sm. melatonin 3 Yes 6mg Take 6 mg U nivers mg tablet 7-05 by mouth ity of 21:44: at [place] [address] bedtime. Medical Branch nicotine 21 Yes 1{patch Apply 1 [facility] mg/24 hr 7-05 } Patch to ity of patch 21:44: area(s) [place] 36 every 24 Medical (twenty-fo Branch ur) hours. clopidogreL Yes 75mg Take 75 mg [facility] (PLAVIX) 75 7-05 by mouth ity of mg tablet 21:44: daily. [place] [address] Medical Branch aspirin 81 Yes 81mg Take 81 mg U nivers mg EC 7-05 by mouth ity of tablet 21:44: daily. [place] [address] Medical Branch ferrous Yes 300mg Take 300 Unive rs sulfate 300 7-05 mg by ity of mg (60 mg 21:44: mouth 2 [place] iron)/5 mL 36 (two) Medical solution times Branch daily. atorvastati Yes 80mg Take 80 mg Univers n 80 mg 7-05 by mouth ity of tablet 21:44: at [place] [address] bedtime. Medical Branch albuterol Yes 2.5mg Inhale 2.5 U nivers 2.5 mg /3 7-05 mg every 4 ity of mL (0.083 21:44: (four) [place] %) 36 hours as Medical nebulizer needed for Bran ch solution Wheezing, Shortness of Breath or Bronchospa sm. melatonin 3 Yes 6mg Take 6 mg U nivers mg tablet 7-05 by mouth ity of 21:44: at [place] [address] bedtime. Medical Branch nicotine Yes 1{patch Apply 1 [facility] mg/24 hr 7-05 } Patch to ity of patch 21:44: area(s) [place] 36 every 24 Medical (twenty- Branch ur) hours. clopidogreL Yes 75mg Take 75 mg [facility] (PLAVIX) 75 7-05 by mouth ity of mg tablet 21:44: daily. [place] [address] Medical Branch aspirin 81 Yes 81mg Take 81 mg U nivers mg EC 7-05 by mouth ity of tablet 21:44: daily. [place] [address] Medical Branch ferrous Yes 300mg Take 300 Unive rs sulfate 300 7-05 mg by ity of mg (60 mg 21:44: mouth 2 [place] iron)/5 mL 36 (two) Medical solution times Branch daily. atorvastati Yes 80mg Take 80 mg Univers n 80 mg 7-05 by mouth ity of tablet 21:44: at [place] 36 bedtime. Medical Branch albuterol Yes 2.5mg Inhale 2.5 U nivers 2.5 mg /3 7-05 mg every 4 ity of mL (0.083 21:44: (four) [place] %) 36 hours as Medical nebulizer needed for Bran ch solution Wheezing, Shortness of Breath or Bronchospa sm. melatonin 3 Yes 6mg Take 6 mg U nivers mg tablet 7-05 by mouth ity of 21:44: at [place] [address] bedtime. Medical Branch nicotine 21 Yes 1{patch Apply 1 [facility] mg/24 hr 7-05 } Patch to ity of patch 21:44: area(s) [place] [address] every 24 Medical (-fo Branch ur) hours. clopidogreL Yes 75mg Take 75 mg [facility] (PLAVIX) 75 7-05 by mouth ity of mg tablet 21:44: daily. [place] [address] Medical Branch aspirin 81 Yes 81mg Take 81 mg U nivers mg EC 7-05 by mouth ity of tablet 21:44: daily. [place] [address] Medical Branch ferrous Yes 300mg Take 300 Unive rs sulfate 300 7-05 mg by ity of mg (60 mg 21:44: mouth 2 [place] iron)/5 mL 36 (two) Medical solution times Branch daily. atorvastati Yes 80mg Take 80 mg Univers n 80 mg 7-05 by mouth ity of tablet 21:44: at [place] [address] bedtime. Medical Branch albuterol Yes 2.5mg Inhale 2.5 U nivers 2.5 mg /3 7-05 mg every 4 ity of mL (0.083 21:44: (four) [place] %) 36 hours as Medical nebulizer needed for Bran ch solution Wheezing, Shortness of Breath or Bronchospa sm. melatonin 3 Yes 6mg Take 6 mg U nivers mg tablet 7-05 by mouth ity of 21:44: at [place] [address] bedtime. Medical Branch nicotine 21 Yes 1{patch Apply 1 [facility] mg/24 hr 7-05 } Patch to ity of patch 21:44: area(s) [place] [address] every 24 Medical (twenty-fo Branch ur) hours. clopidogreL Yes 75mg Take 75 mg [facility] (PLAVIX) 75 7-05 by mouth ity of mg tablet 21:44: daily. [address] Branch aspirin 81 0 Yes 81mg Take 81 mg U nivers mg EC 7-05 by mouth ity of tablet 21:44: daily. [place] [address] Medical Branch ferrous Yes 300mg Take 300 Unive rs sulfate 300 7-05 mg by ity of mg (60 mg 21:44: mouth 2 [place] iron)/5 mL 36 (two) Medical solution times Branch daily. atorvastati Yes 80mg Take 80 mg Univers n 80 mg 7-05 by mouth ity of tablet 21:44: at [place] [address] bedtime. Medical Branch albuterol Yes 2.5mg Inhale 2.5 U nivers 2.5 mg /3 7-05 mg every 4 ity of mL (0.083 21:44: (four) [place] %) 36 hours as Medical nebulizer needed for Bran ch solution Wheezing, Shortness of Breath or Bronchospa sm. melatonin 3 Yes 6mg Take 6 mg U nivers mg tablet 7-05 by mouth ity of 21:44: at [place] [address] bedtime. Medical Branch nicotine 21 Yes 1{patch Apply 1 [facility] mg/24 hr 7-05 } Patch to ity of patch 21:44: area(s) [place] [address] every 24 Medical ([facility] Branch ur) hours. clopidogreL Yes 75mg Take 75 mg [facility] (PLAVIX) 75 7-05 by mouth ity of mg tablet 21:44: daily. [place] [address] Medical Branch aspirin 81 0 Yes 81mg Take 81 mg U nivers mg EC 7-05 by mouth ity of tablet 21:44: daily. [place] [address] Medical Branch ferrous Yes 300mg Take 300 Unive rs sulfate 300 7-05 mg by ity of mg (60 mg 21:44: mouth 2 [place] iron)/5 mL 36 (two) Medical solution times Branch daily. atorvastati Yes 80mg Take 80 mg Univers n 80 mg 7-05 by mouth ity of tablet 21:44: at [place] [address] bedtime. Medical Branch albuterol 0 Yes 2.5mg Inhale 2.5 U nivers 2.5 mg /3 7-05 mg every 4 ity of mL (0.083 21:44: (four) [place] %) 36 hours as Medical nebulizer needed for Bran ch solution Wheezing, Shortness of Breath or Bronchospa sm. melatonin 3 Yes 6mg Take 6 mg U nivers mg tablet 7-05 by mouth ity of 21:44: at [place] [address] bedtime. Medical Branch nicotine 21 Yes 1{patch Apply 1 [facility] mg/24 hr 7-05 } Patch to ity of patch 21:44: area(s) [place] [address] every 24 Medical (twenty-fo Branch ur) hours. clopidogreL Yes 75mg Take 75 mg [facility] (PLAVIX) 75 7-05 by mouth ity of mg tablet 21:44: daily. [place] [address] Medical Branch aspirin 81 Yes 81mg Take 81 mg U nivers mg EC 7-05 by mouth ity of tablet 21:44: daily. [place] [address] Medical Branch ferrous Yes 300mg Take 300 Unive rs sulfate 300 7-05 mg by ity of mg (60 mg 21:44: mouth 2 [place] iron)/5 mL 36 (two) Medical solution times Branch daily. atorvastati Yes 80mg Take 80 mg Univers n 80 mg 7-05 by mouth ity of tablet 21:44: at [place] [address] bedtime. Medical Branch albuterol Yes 2.5mg Inhale 2.5 U nivers 2.5 mg /3 7-05 mg every 4 ity of mL (0.083 21:44: (four) [place] %) 36 hours as Medical nebulizer needed for Bran ch solution Wheezing, Shortness of Breath or Bronchospa sm. melatonin 3 Yes 6mg Take 6 mg U nivers mg tablet 7-05 by mouth ity of 21:44: at [place] [address] bedtime. Medical Branch nicotine 21 Yes 1{patch Apply 1 [facility] mg/24 hr 7-05 } Patch to ity of patch 21:44: area(s) [place] [address] every 24 Medical (twenty-fo Branch ur) hours. clopidogreL Yes 75mg Take 75 mg [facility] (PLAVIX) 75 7-05 by mouth ity of mg tablet 21:44: daily. [address] Branch aspirin 81 Yes 81mg Take 81 mg U nivers mg EC 7-05 by mouth ity of tablet 21:44: daily. [address] Branch ferrous Yes 300mg Take 300 Unive rs sulfate 300 7-05 mg by ity of mg (60 mg 21:44: mouth 2 [place] iron)/5 mL 36 (two) Medical solution times [place] daily. atorvastati Yes 80mg Take 80 mg Univers n 80 mg 7-05 by mouth ity of tablet 21:44: at [place] [address] bedtime. Medical Branch albuterol Yes 2.5mg Inhale 2.5 U nivers 2.5 mg /3 7-05 mg every 4 ity of mL (0.083 21:44: (four) [place] %) 36 hours as Medical nebulizer needed for Bran ch solution Wheezing, Shortness of Breath or Bronchospa sm. melatonin 3 Yes 6mg Take 6 mg U nivers mg tablet 7-05 by mouth ity of 21:44: at [place] [address] bedtime. Medical Branch nicotine 21 Yes 1{patch Apply 1 [facility] mg/24 hr 7-05 } Patch to ity of patch 21:44: area(s) [place] [address] every 24 Medical (twenty-fo Branch ur) hours. clopidogreL Yes 75mg Take 75 mg [facility] (PLAVIX) 75 7-05 by mouth ity of mg tablet 21:44: daily. [address] Branch aspirin 81 Yes 81mg Take 81 mg U nivers mg EC 7-05 by mouth ity of tablet 21:44: daily. [address] Branch ferrous Yes 300mg Take 300 Unive rs sulfate 300 7-05 mg by ity of mg (60 mg 21:44: mouth 2 [place] iron)/5 mL 36 (two) Medical solution times [place] daily. atorvastati Yes 80mg Take 80 mg Univers n 80 mg 7-05 by mouth ity of tablet 21:44: at [place] [address] bedtime. Medical Branch albuterol Yes 2.5mg Inhale 2.5 U nivers 2.5 mg /3 7-05 mg every 4 ity of mL (0.083 21:44: (four) [place] %) 36 hours as Medical nebulizer needed for Bran ch solution Wheezing, Shortness of Breath or Bronchospa sm. melatonin 3 Yes 6mg Take 6 mg U nivers mg tablet 7-05 by mouth ity of 21:44: at [place] [address] bedtime. Medical Branch nicotine 21 Yes 1{patch Apply 1 [facility] mg/24 hr 7-05 } Patch to ity of patch 21:44: area(s) [place] [address] every 24 Medical (fo Branch ur) hours. clopidogreL Yes 75mg Take 75 mg [facility] (PLAVIX) 75 7-05 by mouth ity of mg tablet 21:44: daily. [place] [address] Medical Branch aspirin 81 Yes 81mg Take 81 mg U nivers mg EC 7-05 by mouth ity of tablet 21:44: daily. [place] [address] Medical Branch ferrous Yes 300mg Take 300 Unive rs sulfate 300 7-05 mg by ity of mg (60 mg 21:44: mouth 2 [place] iron)/5 mL 36 (two) Medical solution times Branch daily. atorvastati Yes 80mg Take 80 mg [facility] n 80 mg 7-05 by mouth ity of tablet 21:44: at [place] [address] bedtime. Medical Branch albuterol Yes 2.5mg Inhale 2.5 U nivers 2.5 mg /3 7-05 mg every 4 ity of mL (0.083 21:44: (four) [place] %) 36 hours as Medical nebulizer needed for Bran ch solution Wheezing, Shortness of Breath or Bronchospa sm. melatonin 3 Yes 6mg Take 6 mg U nivers mg tablet 7-05 by mouth ity of 21:44: at [place] [address] bedtime. Medical Branch nicotine 21 Yes 1{patch Apply 1 [facility] mg/24 hr 7-05 } Patch to ity of patch 21:44: area(s) [place] [address] every 24 Medical ( Branch ur) hours. clopidogreL Yes 75mg Take 75 mg [facility] (PLAVIX) 75 7-05 by mouth ity of mg tablet 21:44: daily. [place] [address] Medical Branch aspirin 81 Yes 81mg Take 81 mg U nivers mg EC 7-05 by mouth ity of tablet 21:44: daily. [address] Branch ferrous Yes 300mg Take 300 Unive rs sulfate 300 7-05 mg by ity of mg (60 mg 21:44: mouth 2 [place] iron)/5 mL 36 (two) Medical solution times [place] daily. atorvastati Yes 80mg Take 80 mg [facility] n 80 mg 7-05 by mouth ity of tablet 21:44: at [place] [address] bedtime. Medical Branch albuterol Yes 2.5mg Inhale 2.5 U nivers 2.5 mg /3 7-05 mg every 4 ity of mL (0.083 21:44: (four) [place] %) 36 hours as Medical nebulizer needed for Bran ch solution Wheezing, Shortness of Breath or Bronchospa sm. melatonin 3 Yes 6mg Take 6 mg U nivers mg tablet 7-05 by mouth ity of 21:44: at [place] [address] bedtime. Medical Branch nicotine 21 Yes 1{patch Apply 1 [facility] mg/24 hr 7-05 } Patch to ity of patch 21:44: area(s) [place] [address] every 24 Medical (twenty-fo Branch ur) hours. clopidogreL Yes 75mg Take 75 mg [facility] (PLAVIX) 75 7-05 by mouth ity of mg tablet 21:44: daily. [address] Branch aspirin 81 Yes 81mg Take 81 mg U nivers mg EC 7-05 by mouth ity of tablet 21:44: daily. [address] Branch ferrous Yes 300mg Take 300 Unive rs sulfate 300 7-05 mg by ity of mg (60 mg 21:44: mouth 2 [place] iron)/5 mL 36 (two) Medical solution times [place] daily. atorvastati Yes 80mg Take 80 mg [facility] n 80 mg 7-05 by mouth ity of tablet 21:44: at [place] [address] bedtime. Medical Branch albuterol Yes 2.5mg Inhale 2.5 U nivers 2.5 mg /3 7-05 mg every 4 ity of mL (0.083 21:44: (four) [place] %) 36 hours as Medical nebulizer needed for Bran ch solution Wheezing, Shortness of Breath or Bronchospa sm. melatonin 3 Yes 6mg Take 6 mg U nivers mg tablet 7-05 by mouth ity of 21:44: at [place] [address] bedtime. Medical Branch nicotine 21 Yes 1{patch Apply 1 [facility] mg/24 hr 7-05 } Patch to ity of patch 21:44: area(s) [place] [address] every 24 Medical (twenty-fo Branch ur) hours. clopidogreL Yes 75mg Take 75 mg [facility] (PLAVIX) 75 7-05 by mouth ity of mg tablet 21:44: daily. [place] [address] Medical Branch aspirin 81 Yes 81mg Take 81 mg U nivers mg EC 7-05 by mouth ity of tablet 21:44: daily. [place] [address] Medical Branch ferrous Yes 300mg Take 300 Unive rs sulfate 300 7-05 mg by ity of mg (60 mg 21:44: mouth 2 [place] iron)/5 mL 36 (two) Medical solution times Branch daily. atorvastati Yes 80mg Take 80 mg [facility] n 80 mg 7-05 by mouth ity of tablet 21:44: at [place] [address] bedtime. Medical Branch albuterol Yes 2.5mg Inhale 2.5 U nivers 2.5 mg /3 7-05 mg every 4 ity of mL (0.083 21:44: (four) [place] %) 36 hours as Medical nebulizer needed for Bran ch solution Wheezing, Shortness of Breath or Bronchospa sm. melatonin 3 Yes 6mg Take 6 mg U nivers mg tablet 7-05 by mouth ity of 21:44: at [place] [address] bedtime. Medical Branch nicotine Yes 1{patch Apply 1 [facility] mg/24 hr 7-05 } Patch to ity of patch 21:44: area(s) [place] [address] every 24 Medical (twenty-fo Branch ur) hours. clopidogreL Yes 75mg Take 75 mg [facility] (PLAVIX) 75 7-05 by mouth ity of mg tablet 21:44: daily. [place] [address] Medical Branch aspirin 81 Yes 81mg Take 81 mg U nivers mg EC 7-05 by mouth ity of tablet 21:44: daily. [place] [address] Medical Branch ferrous Yes 300mg Take 300 Unive rs sulfate 300 7-05 mg by ity of mg (60 mg 21:44: mouth 2 [place] iron)/5 mL 36 (two) Medical solution times Branch daily. atorvastati Yes 80mg Take 80 mg [facility] n 80 mg 7-05 by mouth ity of tablet 21:44: at [place] [address] bedtime. Medical Branch albuterol Yes 2.5mg Inhale 2.5 U nivers 2.5 mg /3 7-05 mg every 4 ity of mL (0.083 21:44: (four) [place] %) 36 hours as Medical nebulizer needed for Bran ch solution Wheezing, Shortness of Breath or Bronchospa sm. melatonin 3 Yes 6mg Take 6 mg U nivers mg tablet 7-05 by mouth ity of 21:44: at [place] [address] bedtime. Medical Branch nicotine 21 Yes 1{patch Apply 1 [facility] mg/24 hr 7-05 } Patch to ity of patch 21:44: area(s) [place] [address] every 24 Medical (twenty-fo Branch ur) hours. clopidogreL Yes 75mg Take 75 mg [facility] (PLAVIX) 75 7-05 by mouth ity of mg tablet 21:44: daily. [address] Branch aspirin 81 Yes 81mg Take 81 mg U nivers mg EC 7-05 by mouth ity of tablet 21:44: daily. [address] Branch ferrous Yes 300mg Take 300 Unive rs sulfate 300 7-05 mg by ity of mg (60 mg 21:44: mouth 2 [place] iron)/5 mL 36 (two) Medical solution times [place] daily. atorvastati Yes 80mg Take 80 mg [facility] n 80 mg 7-05 by mouth ity of tablet 21:44: at [place] [address] bedtime. Medical Branch albuterol Yes 2.5mg Inhale 2.5 U nivers 2.5 mg /3 7-05 mg every 4 ity of mL (0.083 21:44: (four) [place] %) 36 hours as Medical nebulizer needed for Bran ch solution Wheezing, Shortness of Breath or Bronchospa sm. melatonin 3 Yes 6mg Take 6 mg U nivers mg tablet 7-05 by mouth ity of 21:44: at [place] [address] bedtime. Medical Branch nicotine 21 Yes 1{patch Apply 1 [facility] mg/24 hr 7-05 } Patch to ity of patch 21:44: area(s) [place] 36 every 24 Medical (twenty-fo Branch ur) hours. clopidogreL Yes 75mg Take 75 mg [facility] (PLAVIX) 75 7-05 by mouth ity of mg tablet 21:44: daily. [place] [address] Medical Branch aspirin 81 Yes 81mg Take 81 mg U nivers mg EC 7-05 by mouth ity of tablet 21:44: daily. [place] [address] Medical Branch ferrous Yes 300mg Take 300 Unive rs sulfate 300 7-05 mg by ity of mg (60 mg 21:44: mouth 2 [place] iron)/5 mL 36 (two) Medical solution times Branch daily. atorvastati Yes 80mg Take 80 mg [facility] n 80 mg 7-05 by mouth ity of tablet 21:44: at [place] [address] bedtime. Medical Branch albuterol Yes 2.5mg Inhale 2.5 U nivers 2.5 mg /3 7-05 mg every 4 ity of mL (0.083 21:44: (four) [place] %) 36 hours as Medical nebulizer needed for Bran ch solution Wheezing, Shortness of Breath or Bronchospa sm. melatonin 3 Yes 6mg Take 6 mg U nivers mg tablet 7-05 by mouth ity of 21:44: at [place] [address] bedtime. Medical Branch levothyroxi Yes 137ug Take 137 U nivers ne 137 mcg 7-05 mcg by ity of tablet 21:44: mouth [place] 35 every Medical other day. Branch levothyroxi Yes 137ug Take 137 U nivers ne 137 mcg 7-05 mcg by ity of tablet 21:44: mouth [place] 35 every Medical other day. Branch levothyroxi Yes 125ug Take 125 U nivers ne 125 mcg 7-05 mcg by ity of tablet 21:44: mouth [place] 35 every Medical other day. Branch levothyroxi Yes 137ug Take 137 U nivers ne 137 mcg 7-05 mcg by ity of tablet 21:44: mouth [place] 35 every Medical other day. Branch levothyroxi Yes 125ug Take 125 U nivers ne 125 mcg 7-05 mcg by ity of tablet 21:44: mouth [place] 35 every Medical other day. Branch levothyroxi 2020-0 Yes 137ug Take 137 U nivers ne 137 mcg 7-05 mcg by ity of tablet 21:44: mouth [place] 35 every Medical other day. Branch levothyroxi 2020-0 Yes 125ug Take 125 U nivers ne 125 mcg 7-05 mcg by ity of tablet 21:44: mouth [place] 35 every Medical other day. Branch levothyroxi 2020-0 Yes 137ug Take 137 U nivers ne 137 mcg 7-05 mcg by ity of tablet 21:44: mouth [place] 35 every Medical other day. Branch levothyroxi 2020-0 Yes 125ug Take 125 U nivers ne 125 mcg 7-05 mcg by ity of tablet 21:44: mouth [place] 35 every Medical other day. Branch levothyroxi 2020-0 Yes 137ug Take 137 U nivers ne 137 mcg 7-05 mcg by ity of tablet 21:44: mouth [place] 35 every Medical other day. Branch levothyroxi 2020-0 Yes 125ug Take 125 U nivers ne 125 mcg 7-05 mcg by ity of tablet 21:44: mouth [place] 35 every Medical other day. Branch levothyroxi 2020-0 Yes 137ug Take 137 U nivers ne 137 mcg 7-05 mcg by ity of tablet 21:44: mouth [place] 35 every Medical other day. Branch levothyroxi 2020-0 Yes 125ug Take 125 U nivers ne 125 mcg 7-05 mcg by ity of tablet 21:44: mouth [place] 35 every Medical other day. Branch levothyroxi 2020-0 Yes 137ug Take 137 U nivers ne 137 mcg 7-05 mcg by ity of tablet 21:44: mouth [place] 35 every Medical other day. Branch levothyroxi 2020-0 Yes 125ug Take 125 U nivers ne 125 mcg 7-05 mcg by ity of tablet 21:44: mouth [place] 35 every Medical other day. Branch levothyroxi 2020-0 Yes 137ug Take 137 U nivers ne 137 mcg 7-05 mcg by ity of tablet 21:44: mouth [place] 35 every Medical other day. Branch levothyroxi 2020-0 Yes 125ug Take 125 U nivers ne 125 mcg 7-05 mcg by ity of tablet 21:44: mouth [place] 35 every Medical other day. Branch levothyroxi 2020-0 Yes 137ug Take 137 U nivers ne 137 mcg 7-05 mcg by ity of tablet 21:44: mouth [place] 35 every Medical other day. Branch levothyroxi 2020-0 Yes 125ug Take 125 U nivers ne 125 mcg 7-05 mcg by ity of tablet 21:44: mouth [place] 35 every Medical other day. Branch levothyroxi 2020-0 Yes 137ug Take 137 U nivers ne 137 mcg 7-05 mcg by ity of tablet 21:44: mouth [place] 35 every Medical other day. Branch levothyroxi 2020-0 Yes 125ug Take 125 U nivers ne 125 mcg 7-05 mcg by ity of tablet 21:44: mouth [place] 35 every Medical other day. Branch levothyroxi 2020-0 Yes 137ug Take 137 U nivers ne 137 mcg 7-05 mcg by ity of tablet 21:44: mouth [place] 35 every Medical other day. Branch levothyroxi 2020-0 Yes 125ug Take 125 U nivers ne 125 mcg 7-05 mcg by ity of tablet 21:44: mouth [place] 35 every Medical other day. Branch levothyroxi 2020-0 Yes 137ug Take 137 U nivers ne 137 mcg 7-05 mcg by ity of tablet 21:44: mouth [place] 35 every Medical other day. Branch levothyroxi 2020-0 Yes 125ug Take 125 U nivers ne 125 mcg 7-05 mcg by ity of tablet 21:44: mouth [place] 35 every Medical other day. Branch levothyroxi 2020-0 Yes 137ug Take 137 U nivers ne 137 mcg 7-05 mcg by ity of tablet 21:44: mouth [place] 35 every Medical other day. Branch levothyroxi 2020-0 Yes 125ug Take 125 U nivers ne 125 mcg 7-05 mcg by ity of tablet 21:44: mouth [place] 35 every Medical other day. Branch levothyroxi 2020-0 Yes 137ug Take 137 U nivers ne 137 mcg 7-05 mcg by ity of tablet 21:44: mouth [place] 35 every Medical other day. Branch levothyroxi 2020-0 Yes 137ug Take 137 U nivers ne 137 mcg 7-05 mcg by ity of tablet 21:44: mouth [place] 35 every Medical other day. Branch levothyroxi Yes 137ug Take 137 U nivers ne 137 mcg 7-05 mcg by ity of tablet 21:44: mouth [place] 35 every Medical other day. Branch levothyroxi Yes 137ug Take 137 U nivers ne 137 mcg 7-05 mcg by ity of tablet 21:44: mouth [place] 35 every Medical other day. Branch ARIPiprazol Yes [id number] 5mg Take 1 [facility] e (ABILIFY) 7-05 tablet by ity of 5 mg tablet 00:00: mouth [place] 00 daily. Medical Branch ARIPiprazol Yes [id number] 5mg Take 1 [facility] e (ABILIFY) 7-05 tablet by ity of 5 mg tablet 00:00: mouth [place] 00 daily. Medical Branch ARIPiprazol Yes [id number] 5mg Take 1 [facility] e (ABILIFY) 7-05 tablet by ity of 5 mg tablet 00:00: mouth [place] 00 daily. Medical Branch ARIPiprazol Yes [id number] 5mg Take 1 [facility] e (ABILIFY) 7-05 tablet by ity of 5 mg tablet 00:00: mouth [place] 00 daily. Medical Branch ARIPiprazol Yes [id number] 5mg Take 1 [facility] e (ABILIFY) 7-05 tablet by ity of 5 mg tablet 00:00: mouth [place] 00 daily. Medical Branch ARIPiprazol Yes [id number] 5mg Take 1 [facility] e (ABILIFY) 7-05 tablet by ity of 5 mg tablet 00:00: mouth [place] 00 daily. Medical Branch ARIPiprazol Yes [id number] 5mg Take 1 [facility] e (ABILIFY) 7-05 tablet by ity of 5 mg tablet 00:00: mouth [place] 00 daily. Medical Branch ARIPiprazol 0 Yes [id number] 5mg Take 1 [facility] e (ABILIFY) 7-05 tablet by ity of 5 mg tablet 00:00: mouth [place] 00 daily. [facility] Branch ARIPiprazol Yes [id number] 5mg Take 1 [facility] e (ABILIFY) 7-05 tablet by ity of 5 mg tablet 00:00: mouth [place] 00 daily. Medical Branch ARIPiprazol 0 Yes [id number] 5mg Take 1 [facility] e (ABILIFY) 7-05 tablet by ity of 5 mg tablet 00:00: mouth [place] 00 daily. [facility] Branch ARIPiprazol 0 Yes [id number] 5mg Take 1 [facility] e (ABILIFY) 7-05 tablet by ity of 5 mg tablet 00:00: mouth [place] 00 daily. [facility] Branch ARIPiprazol 0 Yes [id number] 5mg Take 1 [facility] e (ABILIFY) 7-05 tablet by ity of 5 mg tablet 00:00: mouth [place] 00 daily. [facility] Branch ARIPiprazol 0 Yes [id number] 5mg Take 1 [facility] e (ABILIFY) 7-05 tablet by ity of 5 mg tablet 00:00: mouth [place] 00 daily. [facility] Branch ARIPiprazol Yes [id number] 5mg Take 1 [facility] e (ABILIFY) 7-05 tablet by ity of 5 mg tablet 00:00: mouth [place] 00 daily. [facility] Branch ARIPiprazol Yes [id number] 5mg Take 1 [facility] e (ABILIFY) 7-05 tablet by ity of 5 mg tablet 00:00: mouth [place] 00 daily. [facility] Branch ARIPiprazol 0 Yes [id number] 5mg Take 1 [facility] e (ABILIFY) 7-05 tablet by ity of 5 mg tablet 00:00: mouth [place] 00 daily. [facility] Branch ARIPiprazol 0 Yes [id number] 5mg Take 1 [facility] e (ABILIFY) 7-05 tablet by ity of 5 mg tablet 00:00: mouth [place] 00 daily. [facility] Branch ARIPiprazol 0 Yes [id number] 5mg Take 1 [facility] e (ABILIFY) 7-05 tablet by ity of 5 mg tablet 00:00: mouth [place] 00 daily. [facility] Branch ARIPiprazol 2020- No [id number] 5mg Take 1 [facility] e (ABILIFY) 7-05 09-01 tablet by it y of 5 mg tablet 00:00: 00:00 [place] 00 :[place] daily. [facility] Branch ARIPiprazol 2020- No [id number] 5mg Take 1 [facility] e (ABILIFY) 7-05 11-30 tablet by it y of 5 mg tablet 00:00: 00:00 [place] 00 :00 daily. Medical Branch famotidine 2020- No 20mg 20 mg, IV U nivers 20 mg in NS 09-28 Piggyback, i ty of 50 ml 16:30: 16:00 ONCE, 1 [place] (PEPCID) 20 00 :00 dose, Wed Med ical mg/50 mL 09/28/20 at [facility] h Piggyback 1130, 50 20 mg mL morpHINE 2020- No 6mg 6 mg, Slow Un maddie injection 6 09-28 IV Push, ity of mg 16:30: 15:31 ONCE, 1 [place] 00 :00 dose, Wed Medical 09/28/20 at Branch 1130, STAT metoclopram 2020- No 10mg 10 mg, Uni vers aretha HCl 09-28 Slow IV ity of (REGLAN) 14:45: 14:18 Push, [place] injection 00 :00 ONCE, 1 Medical 10 mg dose, Wed Branch 09/28/20 at 0945, KENIA FENTanyl PF 2020- No 100ug 100 mcg, Univers (SUBLIMAZE 09-28 Slow IV ity o f (PF)) 14:30: 14:18 Push, [place] injection 00 :00 ONCE, 1 Medical 100 mcg dose, Wed Branch 09/28/20 at 0930, Routine metoclopram 2020-0 Yes [id number] 5mg Take 1 [facility] aretha HCl 6-30 tablet by ity of (REGLAN) 5 00:00: mouth [place] mg tablet 00 before Medical meals and Branch at bedtime. metoclopram 2020-0 Yes [id number] 5mg Take 1 [facility] aretha HCl 6-30 tablet by ity of (REGLAN) 5 00:00: mouth [place] mg tablet 00 before Medical meals and Branch at bedtime. metoclopram 2020-0 Yes [id number] 5mg Take 1 [facility] aretha HCl 6-30 tablet by ity of (REGLAN) 5 00:00: mouth [place] mg tablet 00 before Medical meals and Branch at bedtime. metoclopram 2020-0 Yes [id number] 5mg Take 1 [facility] aretha HCl 6-30 tablet by ity of (REGLAN) 5 00:00: mouth [place] mg tablet 00 before Medical meals and Branch at bedtime. metoclopram 2021-0 Yes [id number] 5mg Take 1 [facility] aretha HCl 6-30 tablet by ity of (REGLAN) 5 00:00: mouth [place] mg tablet 00 before Medical meals and Branch at bedtime. metoclopram 2021-0 Yes [id number] 5mg Take 1 [facility] aretha HCl 6-30 tablet by ity of (REGLAN) 5 00:00: mouth [place] mg tablet 00 before Medical meals and Branch at bedtime. metoclopram 2021-0 Yes [id number] 5mg Take 1 [facility] aretha HCl 6-30 tablet by ity of (REGLAN) 5 00:00: mouth [place] mg tablet 00 before Medical meals and Branch at bedtime. metoclopram 2021-0 Yes [id number] 5mg Take 1 [facility] aretha HCl 6-30 tablet by ity of (REGLAN) 5 00:00: mouth [place] mg tablet 00 before Medical meals and Branch at bedtime. metoclopram 2021-0 Yes [id number] 5mg Take 1 [facility] aretha HCl 6-30 tablet by ity of (REGLAN) 5 00:00: mouth [place] mg tablet 00 before Medical meals and Branch at bedtime. metoclopram 2021-0 Yes [id number] 5mg Take 1 [facility] aretha HCl 6-30 tablet by ity of (REGLAN) 5 00:00: mouth [place] mg tablet 00 before Medical meals and Branch at bedtime. metoclopram 2021-0 Yes [id number] 5mg Take 1 [facility] aretha HCl 6-30 tablet by ity of (REGLAN) 5 00:00: mouth [place] mg tablet 00 before Medical meals and Branch at bedtime. metoclopram 2021-0 Yes [id number] 5mg Take 1 [facility] aretha HCl 6-30 tablet by ity of (REGLAN) 5 00:00: mouth [place] mg tablet 00 before Medical meals and Branch at bedtime. metoclopram 2021-0 Yes [id number] 5mg Take 1 [facility] aretha HCl 6-30 tablet by ity of (REGLAN) 5 00:00: mouth [place] mg tablet 00 before Medical meals and Branch at bedtime. metoclopram 2021-0 Yes [id number] 5mg Take 1 [facility] aretha HCl 6-30 tablet by ity of (REGLAN) 5 00:00: mouth [place] mg tablet 00 before Medical meals and Branch at bedtime. metoclopram 2021-0 Yes [id number] 5mg Take 1 [facility] aretha HCl 6-30 tablet by ity of (REGLAN) 5 00:00: mouth [place] mg tablet 00 before Medical meals and Branch at bedtime. metoclopram 2021-0 Yes [id number] 5mg Take 1 [facility] aretha HCl 6-30 tablet by ity of (REGLAN) 5 00:00: mouth [place] mg tablet 00 before Medical meals and Branch at bedtime. metoclopram 2021-0 Yes [id number] 5mg Take 1 [facility] aretha HCl 6-30 tablet by ity of (REGLAN) 5 00:00: mouth [place] mg tablet 00 before Medical meals and Branch at bedtime. metoclopram 1-0 Yes [id number] 5mg Take 1 [facility] aretha HCl 6-30 tablet by ity of (REGLAN) 5 00:00: mouth [place] mg tablet 00 before Medical meals and Branch at bedtime. metoclopram 1-0 Yes [id number] 5mg Take 1 [facility] aretha HCl 6-30 tablet by ity of (REGLAN) 5 00:00: mouth [place] mg tablet 00 before Medical meals and Branch at bedtime. metoclopram 1-0 Yes [id number] 5mg Take 1 [facility] aretha HCl 6-30 tablet by ity of (REGLAN) 5 00:00: mouth [place] mg tablet 00 before Medical meals and Branch at bedtime. metoclopram 1-0 2021- No [id number] 5mg Take 1 [facility] aretha HCl 6-30 -01 tablet by ity of (REGLAN) 5 00:00: 00:00 mouth [place] mg tablet 00 :00 before Medical meals and Branch at bedtime. metoclopram 2021-0 2021- No [id number] 5mg Take 1 [facility] aretha HCl 6-30 09-01 tablet by ity of (REGLAN) 5 00:00: 00:00 mouth [place] mg tablet 00 :00 before Medical meals and Branch at bedtime. HYDROcodone 2020-0 2021- No [id number] 1{tbl} Take 1-2 [facility] -acetaminop 6-30 07-04 tablets by i ty of hen 5-325 00:00: 04:59 mouth [place] mg tablet 00 :00 every 6 Medical (six) Branch hours as needed for Pain (scale 4-6) for up to 3 days. Indication s: acute pain HYDROcodone 2020- No [id number] 1{tbl} Take 1-2 [facility] -acetaminop - 07-04 tablets by i ty of hen 5-325 00:00: 04:59 mouth [place] mg tablet 00 :00 every 6 Medical (six) Branch hours as needed for Pain (scale 4-6) for up to 3 days. Indication s: acute pain pantoprazol 2020- No 40mg Take 40 mg [facility] e sodium 09-27 by mouth 2 ity of (PANTOPRAZO 21:25: 00:00 (two) [place] 54 :00 times Medical daily. Branch pantoprazol 2020- No 40mg Take 40 mg [facility] e sodium 09-27- by mouth 2 ity of (PANTOPRAZO 21:25: 00:00 (two) [place] 54 :00 times Medical daily. Branch amLODIPine 2020- No [id number] 10mg Take 1 [facility] 10 mg 09-25-28 tablet by ity of tablet 00:00: 04:59 mouth [place] 00 :00 daily for Medical 30 days. Branch escitalopra 2020- No [id number] 20mg Take 1 [facility] m oxalate -25 10-28 tablet by ity of 20 mg 00:00: 04:59 mouth [place] tablet 00 :00 daily for Medical 30 days. Branch levothyroxi 2020- No [id number] 137ug Take 1 [facility] ne 137 mcg -25 10-28 tablet by ity of tablet 00:00: 04:59 mouth [place] 00 :00 every Medical morning Branch for 30 days. amLODIPine 2020- No [id number] 10mg Take 1 [facility] 10 mg -25 10-28 tablet by ity of tablet 00:00: 04:59 mouth [place] 00 :00 daily for Medical 30 days. Branch escitalopra 2020- No [id number] 20mg Take 1 [facility] m oxalate -25 10-28 tablet by ity of 20 mg 00:00: 04:59 mouth [place] tablet 00 :00 daily for Medical 30 days. [place] levothyroxi 2020- No [id number] 137ug Take 1 [facility] ne 137 mcg 6-27 07-28 tablet by ity of tablet 00:00: 04:59 mouth [place] 00 :00 every Medical morning Branch for 30 days. amLODIPine 2020- No [id number] 10mg Take 1 [facility] 10 mg 6-27 07-28 tablet by ity of tablet 00:00: 04:59 mouth [place] 00 :00 daily for Medical 30 days. [place] escitalopra 2020- No [id number] 20mg Take 1 [facility] m oxalate 6-27 07-28 tablet by ity of 20 mg 00:00: 04:59 mouth [place] tablet 00 :00 daily for Medical 30 days. [place] levothyroxi 2020- No [id number] 137ug Take 1 [facility] ne 137 mcg 6-27 07-28 tablet by ity of tablet 00:00: 04:59 mouth [place] 00 :00 every Medical morning Branch for 30 days. amLODIPine 2020- No [id number] 10mg Take 1 [facility] 10 mg 6-27 07-28 tablet by ity of tablet 00:00: 04:59 mouth [place] 00 :00 daily for Medical 30 days. [place] escitalopra 2020- No [id number] 20mg Take 1 [facility] m oxalate 6-27 07-28 tablet by ity of 20 mg 00:00: 04:59 mouth [place] tablet 00 :00 daily for Medical 30 days. [place] levothyroxi 2020- No [id number] 137ug Take 1 [facility] ne 137 mcg 6-27 07-28 tablet by ity of tablet 00:00: 04:59 mouth [place] 00 :00 every Medical morning Branch for 30 days. amLODIPine 2020- No [id number] 10mg Take 1 [facility] 10 mg 6-27 07-28 tablet by ity of tablet 00:00: 04:59 mouth [place] 00 :00 daily for Medical 30 days. [place] escitalopra 2020- No [id number] 20mg Take 1 [facility] m oxalate 6-27 07-28 tablet by ity of 20 mg 00:00: 04:59 mouth [place] tablet 00 :00 daily for Medical 30 days. [place] levothyroxi 2020- No [id number] 137ug Take 1 [facility] ne 137 mcg -25 10-28 tablet by ity of tablet 00:00: 04:59 mouth [place] 00 :00 every Medical morning Branch for 30 days. amLODIPine 2020- No [id number] 10mg Take 1 [facility] 10 mg 6-25 10-28 tablet by ity of tablet 00:00: 04:59 mouth [place] 00 :00 daily for Medical 30 days. [place] escitalopra 2020- No [id number] 20mg Take 1 [facility] m oxalate -25 10-28 tablet by ity of 20 mg 00:00: 04:59 mouth [place] tablet 00 :00 daily for Medical 30 days. [place] levothyroxi 2020- No [id number] 137ug Take 1 [facility] ne 137 mcg -25 10-28 tablet by ity of tablet 00:00: 04:59 mouth [place] 00 :00 every Medical morning Branch for 30 days. amLODIPine 2020- No [id number] 10mg Take 1 [facility] 10 mg -25 10-28 tablet by ity of tablet 00:00: 04:59 mouth [place] 00 :00 daily for Medical 30 days. [place] escitalopra 2020- No [id number] 20mg Take 1 [facility] m oxalate -25 10-28 tablet by ity of 20 mg 00:00: 04:59 mouth [place] tablet 00 :00 daily for Medical 30 days. [place] levothyroxi 2020- No [id number] 137ug Take 1 [facility] ne 137 mcg 09-25-28 tablet by ity of tablet 00:00: 04:59 mouth [place] 00 :00 every Medical morning Branch for 30 days. amLODIPine 2020- No [id number] 10mg Take 1 [facility] 10 mg 6-25 10-28 tablet by ity of tablet 00:00: 04:59 mouth [place] 00 :00 daily for Medical 30 days. [place] escitalopra 2020- No [id number] 20mg Take 1 [facility] m oxalate -25 10-28 tablet by ity of 20 mg 00:00: 04:59 mouth [place] tablet 00 :00 daily for Medical 30 days. [place] amLODIPine 2020- No [id number] 10mg Take 1 [facility] 10 mg 6-27 07-28 tablet by ity of tablet 00:00: 04:59 mouth [place] 00 :00 daily for Medical 30 days. [place] escitalopra 2020- No [id number] 20mg Take 1 [facility] m oxalate 6-27 07-28 tablet by ity of 20 mg 00:00: 04:59 mouth [place] tablet 00 :00 daily for Medical 30 days. [place] amLODIPine 2020- No [id number] 10mg Take 1 [facility] 10 mg 6-27 07-28 tablet by ity of tablet 00:00: 04:59 mouth [place] 00 :00 daily for Medical 30 days. [facility] escitalopra 2020- No [id number] 20mg Take 1 [facility] m oxalate 6-27 07-28 tablet by ity of 20 mg 00:00: 04:59 mouth [place] tablet 00 :00 daily for Medical 30 days. [place] amLODIPine 2020- No [id number] 10mg Take 1 [facility] 10 mg 6-27 07-28 tablet by ity of tablet 00:00: 04:59 mouth [place] 00 :00 daily for Medical 30 days. [place] escitalopra 2020- No [id number] 20mg Take 1 [facility] m oxalate 6-27 07-28 tablet by ity of 20 mg 00:00: 04:59 mouth [place] tablet 00 :00 daily for Medical 30 days. [place] amLODIPine 2020- No [id number] 10mg Take 1 [facility] 10 mg 6-27 07-28 tablet by ity of tablet 00:00: 04:59 mouth [place] 00 :00 daily for Medical 30 days. [place] escitalopra 2020- No [id number] 20mg Take 1 [facility] m oxalate 6-27 07-28 tablet by ity of 20 mg 00:00: 04:59 mouth [place] tablet 00 :00 daily for Medical 30 days. [place] amLODIPine 2020- No [id number] 10mg Take 1 [facility] 10 mg 6-27 07-28 tablet by ity of tablet 00:00: 04:59 mouth [place] 00 :00 daily for Medical 30 days. [place] escitalopra 2020- No [id number] 20mg Take 1 [facility] m oxalate 6-27 07-28 tablet by ity of 20 mg 00:00: 04:59 mouth [place] tablet 00 :00 daily for Medical 30 days. [place] amLODIPine 2020- No [id number] 10mg Take 1 [facility] 10 mg 6-27 07-28 tablet by ity of tablet 00:00: 04:59 mouth [place] 00 :00 daily for Medical 30 days. [place] escitalopra 2020- No [id number] 20mg Take 1 [facility] m oxalate 6-27 07-28 tablet by ity of 20 mg 00:00: 04:59 mouth [place] tablet 00 :00 daily for Medical 30 days. [place] amLODIPine 2020- No [id number] 10mg Take 1 [facility] 10 mg 6-27 07-28 tablet by ity of tablet 00:00: 04:59 mouth [place] 00 :00 daily for Medical 30 days. [place] escitalopra 2020- No [id number] 20mg Take 1 [facility] m oxalate 6-27 07-28 tablet by ity of 20 mg 00:00: 04:59 mouth [place] tablet 00 :00 daily for Medical 30 days. [place] amLODIPine 2020- No [id number] 10mg Take 1 [facility] 10 mg 6-27 07-28 tablet by ity of tablet 00:00: 04:59 mouth [place] 00 :00 daily for Medical 30 days. [place] escitalopra 2020- No [id number] 20mg Take 1 [facility] m oxalate 6-27 07-28 tablet by ity of 20 mg 00:00: 04:59 mouth [place] tablet 00 :00 daily for Medical 30 days. [place] amLODIPine 2020- No [id number] 10mg Take 1 [facility] 10 mg 6-27 07-28 tablet by ity of tablet 00:00: 04:59 mouth [place] 00 :00 daily for Medical 30 days. [place] escitalopra 2020- No [id number] 20mg Take 1 [facility] m oxalate 6-27 07-28 tablet by ity of 20 mg 00:00: 04:59 mouth [place] tablet 00 :00 daily for Medical 30 days. [place] levothyroxi 2020- No [id number] 137ug Take 1 [facility] ne 137 mcg 6-27 07-05 tablet by ity of tablet 00:00: 00:00 mouth [place] 00 :00 every Medical morning Branch for 30 days. levothyroxi 2020- No [id number] 137ug Take 1 [facility] ne 137 mcg 6- 07-05 tablet by ity of tablet 00:00: 00:00 mouth [place] 00 :00 every Medical morning Branch for 30 days. nicotine 21 Yes 1{patch Apply 1 [facility] mg/24 hr 6-26 } Patch to ity of patch 20:47: area(s) [place] [address] every 24 Medical ( Branch ur) hours. clopidogreL Yes 75mg Take 75 mg [facility] (PLAVIX) 75 6-26 by mouth ity of mg tablet 20:47: daily. [place] [address] Medical Branch aspirin 81 Yes 81mg Take 81 mg U nivers mg EC 6-26 by mouth ity of tablet 20:47: daily. [address] Branch pantoprazol Yes 40mg Take 40 mg [facility] e sodium 6-26 by mouth 2 ity o f (PANTOPRAZO 20:47: (two) [place] LE ORAL) 21 times Medical daily. Branch ferrous Yes 300mg Take 300 Unive rs sulfate 300 6-26 mg by ity of mg (60 mg 20:47: mouth 2 [place] iron)/5 mL 21 (two) Medical solution times Branch daily. atorvastati Yes 80mg Take 80 mg [facility] n 80 mg 6-26 by mouth ity of tablet 20:47: at [place] [address] bedtime. Medical Branch albuterol Yes 2.5mg Inhale 2.5 U nivers 2.5 mg /3 6-26 mg every 4 ity of mL (0.083 20:47: (four) [place] %) 21 hours as Medical nebulizer needed for Bran ch solution Wheezing, Shortness of Breath or Bronchospa sm. melatonin 3 Yes 6mg Take 6 mg U nivers mg tablet 6-26 by mouth ity of 20:47: at [place] [address] bedtime. Medical Branch nicotine 21 Yes 1{patch Apply 1 [facility] mg/24 hr 6-26 } Patch to ity of patch 20:47: area(s) [place] [address] every 24 Medical ( Branch ur) hours. clopidogreL Yes 75mg Take 75 mg [facility] (PLAVIX) 75 6-26 by mouth ity of mg tablet 20:47: daily. [address] Branch aspirin 81 Yes 81mg Take 81 mg U nivers mg EC 6-26 by mouth ity of tablet 20:47: daily. [place] [address] Medical Branch pantoprazol Yes 40mg Take 40 mg [facility] e sodium 6-26 by mouth 2 ity o f (PANTOPRAZO 20:47: (two) [place] LE ORAL) 21 times Medical daily. Branch ferrous Yes 300mg Take 300 Unive rs sulfate 300 6-26 mg by ity of mg (60 mg 20:47: mouth 2 [place] iron)/5 mL 21 (two) Medical solution times Branch daily. atorvastati Yes 80mg Take 80 mg [facility] n 80 mg 6-26 by mouth ity of tablet 20:47: at [place] [address] bedtime. Medical Branch albuterol Yes 2.5mg Inhale 2.5 U nivers 2.5 mg /3 6-26 mg every 4 ity of mL (0.083 20:47: (four) [place] %) 21 hours as Medical nebulizer needed for Bran ch solution Wheezing, Shortness of Breath or Bronchospa sm. melatonin 3 Yes 6mg Take 6 mg U nivers mg tablet 6-26 by mouth ity of 20:47: at [place] [address] bedtime. Medical Branch nicotine 21 Yes 1{patch Apply 1 [facility] mg/24 hr 6-26 } Patch to ity of patch 20:47: area(s) [place] [address] every 24 Medical (twenty-fo Branch ur) hours. clopidogreL Yes 75mg Take 75 mg [facility] (PLAVIX) 75 6-26 by mouth ity of mg tablet 20:47: daily. [place] [address] Medical Branch aspirin 81 Yes 81mg Take 81 mg U nivers mg EC 6-26 by mouth ity of tablet 20:47: daily. [place] [address] Medical Branch ferrous Yes 300mg Take 300 Unive rs sulfate 300 6-26 mg by ity of mg (60 mg 20:47: mouth 2 [place] iron)/5 mL 21 (two) Medical solution times [place] daily. atorvastati Yes 80mg Take 80 mg [facility] n 80 mg 6-26 by mouth ity of tablet 20:47: at [place] [address] bedtime. Medical Branch albuterol Yes 2.5mg Inhale 2.5 U nivers 2.5 mg /3 6-26 mg every 4 ity of mL (0.083 20:47: (four) [place] %) 21 hours as Medical nebulizer needed for Bran ch solution Wheezing, Shortness of Breath or Bronchospa sm. melatonin 3 Yes 6mg Take 6 mg U nivers mg tablet 6-26 by mouth ity of 20:47: at [place] [address] bedtime. Medical Branch nicotine 21 Yes 1{patch Apply 1 [facility] mg/24 hr 6-26 } Patch to ity of patch 20:47: area(s) [place] [address] every 24 Medical (- Branch ur) hours. clopidogreL Yes 75mg Take 75 mg [facility] (PLAVIX) 75 6-26 by mouth ity of mg tablet 20:47: daily. [place] [address] Medical Branch aspirin 81 Yes 81mg Take 81 mg U nivers mg EC 6-26 by mouth ity of tablet 20:47: daily. [place] [address] Medical Branch ferrous Yes 300mg Take 300 Unive rs sulfate 300 6-26 mg by ity of mg (60 mg 20:47: mouth 2 [place] iron)/5 mL 21 (two) Medical solution times Branch daily. atorvastati Yes 80mg Take 80 mg [facility] n 80 mg 6-26 by mouth ity of tablet 20:47: at [place] [address] bedtime. Medical Branch albuterol Yes 2.5mg Inhale 2.5 U nivers 2.5 mg /3 6-26 mg every 4 ity of mL (0.083 20:47: (four) [place] %) 21 hours as Medical nebulizer needed for Bran ch solution Wheezing, Shortness of Breath or Bronchospa sm. melatonin 3 Yes 6mg Take 6 mg U nivers mg tablet 6-26 by mouth ity of 20:47: at [place] [address] bedtime. Medical Branch nicotine 21 Yes 1{patch Apply 1 [facility] mg/24 hr 6-26 } Patch to ity of patch 20:47: area(s) [place] [address] every 24 Medical (-fo Branch ur) hours. clopidogreL Yes 75mg Take 75 mg [facility] (PLAVIX) 75 6-26 by mouth ity of mg tablet 20:47: daily. [address] Branch aspirin 81 Yes 81mg Take 81 mg U nivers mg EC 6-26 by mouth ity of tablet 20:47: daily. [address] Branch ferrous Yes 300mg Take 300 Unive rs sulfate 300 6-26 mg by ity of mg (60 mg 20:47: mouth 2 [place] iron)/5 mL 21 (two) Medical solution times [place] daily. atorvastati Yes 80mg Take 80 mg [facility] n 80 mg 6-26 by mouth ity of tablet 20:47: at [place] [address] bedtime. Medical Branch albuterol Yes 2.5mg Inhale 2.5 U nivers 2.5 mg /3 6-26 mg every 4 ity of mL (0.083 20:47: (four) [place] %) 21 hours as Medical nebulizer needed for Bran ch solution Wheezing, Shortness of Breath or Bronchospa sm. melatonin 3 Yes 6mg Take 6 mg U nivers mg tablet 6-26 by mouth ity of 20:47: at [place] [address] bedtime. Medical Branch nicotine 21 Yes 1{patch Apply 1 [facility] mg/24 hr 6-26 } Patch to ity of patch 20:47: area(s) [place] [address] every 24 Medical (twenty- Branch ur) hours. clopidogreL Yes 75mg Take 75 mg [facility] (PLAVIX) 75 6-26 by mouth ity of mg tablet 20:47: daily. [address] Branch aspirin 81 Yes 81mg Take 81 mg U nivers mg EC 6-26 by mouth ity of tablet 20:47: daily. [address] Branch ferrous Yes 300mg Take 300 Unive rs sulfate 300 6-26 mg by ity of mg (60 mg 20:47: mouth 2 [place] iron)/5 mL 21 (two) Medical solution times [place] daily. atorvastati Yes 80mg Take 80 mg [facility] n 80 mg 6-26 by mouth ity of tablet 20:47: at [place] [address] bedtime. Medical Branch albuterol Yes 2.5mg Inhale 2.5 U nivers 2.5 mg /3 6-26 mg every 4 ity of mL (0.083 20:47: (four) [place] %) 21 hours as Medical nebulizer needed for Bran ch solution Wheezing, Shortness of Breath or Bronchospa sm. melatonin 3 Yes 6mg Take 6 mg U nivers mg tablet 6-26 by mouth ity of 20:47: at [place] [address] bedtime. Medical Branch nicotine 21 Yes 1{patch Apply 1 [facility] mg/24 hr 6-26 } Patch to ity of patch 20:47: area(s) [place] [address] every 24 Medical (twenty-fo Branch ur) hours. clopidogreL Yes 75mg Take 75 mg [facility] (PLAVIX) 75 6-26 by mouth ity of mg tablet 20:47: daily. [place] [address] Medical Branch aspirin 81 Yes 81mg Take 81 mg U nivers mg EC 6-26 by mouth ity of tablet 20:47: daily. [place] [address] Medical Branch ferrous Yes 300mg Take 300 Unive rs sulfate 300 6-26 mg by ity of mg (60 mg 20:47: mouth 2 [place] iron)/5 mL 21 (two) Medical solution times Branch daily. atorvastati Yes 80mg Take 80 mg [facility] n 80 mg 6-26 by mouth ity of tablet 20:47: at [place] [address] bedtime. Medical Branch albuterol Yes 2.5mg Inhale 2.5 U nivers 2.5 mg /3 6-26 mg every 4 ity of mL (0.083 20:47: (four) [place] %) 21 hours as Medical nebulizer needed for Bran ch solution Wheezing, Shortness of Breath or Bronchospa sm. melatonin 3 Yes 6mg Take 6 mg U nivers mg tablet 6-26 by mouth ity of 20:47: at [place] [address] bedtime. Medical Branch HYDROcodone 2020- No 1{tbl} Take 1 U nivers -acetaminop 6-26 06-26 tablet by it y of hen 10-325 18:12: 00:00 mouth [place] mg tablet 08 :00 every 8 Medical (eight) Branch hours as needed. levothyroxi 2020- No 137ug Take 137 [facility] ne 137 mcg 6-26 06-26 mcg by ity of tablet 18:12: 00:00 mouth [place] 08 :00 every Medical other day. Branch Alternate with levothyrox ine 125 mcg tablet levothyroxi Yes 125ug 125 mcg, U nivers ne - Oral, ity of (SYNTHROID) 11:00: QAM-0600, [place] tablet 125 00 First dose Med ical mcg on Sat Branch 09/24/20 at 0600, Until Discontinu ed, Routine HYDROcodone 2020- No 1{tbl} 1 tablet, [facility] -acetaminop 09-24 Oral, ity of hen (NORCO 01:41: 01:40 Q6HPRN, [place] 5) 5-325 mg 05 :05 Starting Medi julieta tablet 1 Fri Branch tablet 09/23/20 at 2040, Until 09/25/20 at 2039, Routine, Pain (scale 4-6) lipase-prot 2020- No [id number] 1{capsu Take 1 [facility] ease-amylas 6- 07-27 le} capsule by i ty of e 00:00: 04:59 mouth 3 [place] 12,000-38,0 00 :00 (three) Medic al 00 -60,000 times Branch unit daily with capsule meals for 30 days. dicyclomine 2020- No [id number] 10mg Take 1 [facility] 10 mg 6-24 10-27 capsule by ity of capsule 00:00: 04:59 mouth 4 [place] 00 :00 (four) Medical times Branch daily for 30 days. gabapentin 2020- No [id number] 100mg Take 1 [facility] 100 mg 6-24 10-27 capsule by ity of capsule 00:00: 04:59 mouth 3 [place] 00 :00 (three) Medical times Branch daily for 30 days. lipase-prot 2020- No [id number] 1{capsu Take 1 [facility] ease-amylas - 07-27 le} capsule by i ty of e 00:00: 04:59 mouth 3 [place] 12,000-38,0 00 :00 (three) Medic al 00 -60,000 times Branch unit daily with capsule meals for 30 days. dicyclomine 2020- No [id number] 10mg Take 1 [facility] 10 mg 6-26 07-27 capsule by ity of capsule 00:00: 04:59 mouth 4 [place] 00 :00 (four) Medical times Branch daily for 30 days. gabapentin 2020- No [id number] 100mg Take 1 [facility] 100 mg 6-26 07-27 capsule by ity of capsule 00:00: 04:59 mouth 3 [place] 00 :00 (three) Medical times Branch daily for 30 days. lipase-prot 2020- No [id number] 1{capsu Take 1 [facility] ease-amylas 6-26 07-27 le} capsule by i ty of e 00:00: 04:59 mouth 3 [place] 12,000-38,0 00 :00 (three) Medic al 00 -60,000 times Branch unit daily with capsule meals for 30 days. dicyclomine 2020- No [id number] 10mg Take 1 [facility] 10 mg 6-26 07-27 capsule by ity of capsule 00:00: 04:59 mouth 4 [place] 00 :00 (four) Medical times Branch daily for 30 days. gabapentin 2020- No [id number] 100mg Take 1 [facility] 100 mg 6-26 07-27 capsule by ity of capsule 00:00: 04:59 mouth 3 [place] 00 :00 (three) Medical times Branch daily for 30 days. lipase-prot 2020- No [id number] 1{capsu Take 1 [facility] ease-amylas 6-26 07-27 le} capsule by i ty of e 00:00: 04:59 mouth 3 [place] 12,000-38,0 00 :00 (three) Medic al 00 -60,000 times Branch unit daily with capsule meals for 30 days. dicyclomine 2020- No [id number] 10mg Take 1 [facility] 10 mg 6-26 07-27 capsule by ity of capsule 00:00: 04:59 mouth 4 [place] 00 :00 (four) Medical times Branch daily for 30 days. gabapentin 2020-2020- No [id number] 100mg Take 1 [facility] 100 mg 6-26 07-27 capsule by ity of capsule 00:00: 04:59 mouth 3 [place] 00 :00 (three) Medical times Branch daily for 30 days. lipase-prot 2020- No [id number] 1{capsu Take 1 [facility] ease-amylas 6-26 07-27 le} capsule by i ty of e 00:00: 04:59 mouth 3 [place] 12,000-38,0 00 :00 (three) Medic al 00 -60,000 times Branch unit daily with capsule meals for 30 days. dicyclomine 2020- No [id number] 10mg Take 1 [facility] 10 mg 6-26 07-27 capsule by ity of capsule 00:00: 04:59 mouth 4 [place] 00 :00 (four) Medical times Branch daily for 30 days. gabapentin 2020- No [id number] 100mg Take 1 [facility] 100 mg 6-26 07-27 capsule by ity of capsule 00:00: 04:59 mouth 3 [place] 00 :00 (three) Medical times Branch daily for 30 days. lipase-prot 2020- No [id number] 1{capsu Take 1 [facility] ease-amylas 6-26 07-27 le} capsule by i ty of e 00:00: 04:59 mouth 3 [place] 12,000-38,0 00 :00 (three) Medic al 00 -60,000 times Branch unit daily with capsule meals for 30 days. dicyclomine 2020- No [id number] 10mg Take 1 [facility] 10 mg 6-26 07-27 capsule by ity of capsule 00:00: 04:59 mouth 4 [place] 00 :00 (four) Medical times Branch daily for 30 days. gabapentin 2020- No [id number] 100mg Take 1 [facility] 100 mg 6-26 07-27 capsule by ity of capsule 00:00: 04:59 mouth 3 [place] 00 :00 (three) Medical times Branch daily for 30 days. lipase-prot 2020- No [id number] 1{capsu Take 1 [facility] ease-amylas 6-26 07-27 le} capsule by i ty of e 00:00: 04:59 mouth 3 [place] 12,000-38,0 00 :00 (three) Medic al 00 -60,000 times Branch unit daily with capsule meals for 30 days. dicyclomine 2020- No [id number] 10mg Take 1 [facility] 10 mg 6-26 07-27 capsule by ity of capsule 00:00: 04:59 mouth 4 [place] 00 :00 (four) Medical times Branch daily for 30 days. gabapentin 2020- No [id number] 100mg Take 1 [facility] 100 mg 6-26 07-27 capsule by ity of capsule 00:00: 04:59 mouth 3 [place] 00 :00 (three) Medical times Branch daily for 30 days. lipase-prot 2020- No [id number] 1{capsu Take 1 [facility] ease-amylas 6-26 07-27 le} capsule by i ty of e 00:00: 04:59 mouth 3 [place] 12,000-38,0 00 :00 (three) Medic al 00 -60,000 times Branch unit daily with capsule meals for 30 days. dicyclomine 2020- No [id number] 10mg Take 1 [facility] 10 mg 6-26 07-27 capsule by ity of capsule 00:00: 04:59 mouth 4 [place] 00 :00 (four) Medical times Branch daily for 30 days. gabapentin 2020- No [id number] 100mg Take 1 [facility] 100 mg 6-26 07-27 capsule by ity of capsule 00:00: 04:59 mouth 3 [place] 00 :00 (three) Medical times Branch daily for 30 days. lipase-prot 2020- No [id number] 1{capsu Take 1 [facility] ease-amylas 6-26 07-27 le} capsule by i ty of e 00:00: 04:59 mouth 3 [place] 12,000-38,0 00 :00 (three) Medic al 00 -60,000 times Branch unit daily with capsule meals for 30 days. dicyclomine 2020- No [id number] 10mg Take 1 [facility] 10 mg 6-26 07-27 capsule by ity of capsule 00:00: 04:59 mouth 4 [place] 00 :00 (four) Medical times Branch daily for 30 days. gabapentin 2020- No [id number] 100mg Take 1 [facility] 100 mg 6-26 07-27 capsule by ity of capsule 00:00: 04:59 mouth 3 [place] 00 :00 (three) Medical times Branch daily for 30 days. lipase-prot 2020- No [id number] 1{capsu Take 1 [facility] ease-amylas 6-26 07-27 le} capsule by i ty of e 00:00: 04:59 mouth 3 [place] 12,000-38,0 00 :00 (three) Medic al 00 -60,000 times Branch unit daily with capsule meals for 30 days. dicyclomine 2020- No [id number] 10mg Take 1 [facility] 10 mg 6-26 07-27 capsule by ity of capsule 00:00: 04:59 mouth 4 [place] 00 :00 (four) Medical times Branch daily for 30 days. gabapentin 2020- No [id number] 100mg Take 1 [facility] 100 mg 6-26 07-27 capsule by ity of capsule 00:00: 04:59 mouth 3 [place] 00 :00 (three) Medical times Branch daily for 30 days. lipase-prot 2020- No [id number] 1{capsu Take 1 [facility] ease-amylas 6-26 07-27 le} capsule by i ty of e 00:00: 04:59 mouth 3 [place] 12,000-38,0 00 :00 (three) Medic al 00 -60,000 times Branch unit daily with capsule meals for 30 days. dicyclomine 2020- No [id number] 10mg Take 1 [facility] 10 mg 6-26 07-27 capsule by ity of capsule 00:00: 04:59 mouth 4 [place] 00 :00 (four) Medical times Branch daily for 30 days. gabapentin 2020- No [id number] 100mg Take 1 [facility] 100 mg 6-26 07-27 capsule by ity of capsule 00:00: 04:59 mouth 3 [place] 00 :00 (three) Medical times Branch daily for 30 days. lipase-prot 2020- No [id number] 1{capsu Take 1 [facility] ease-amylas 6-26 07-27 le} capsule by i ty of e 00:00: 04:59 mouth 3 [place] 12,000-38,0 00 :00 (three) Medic al 00 -60,000 times Branch unit daily with capsule meals for 30 days. dicyclomine 2020- No [id number] 10mg Take 1 [facility] 10 mg 6-26 07-27 capsule by ity of capsule 00:00: 04:59 mouth 4 [place] 00 :00 (four) Medical times Branch daily for 30 days. gabapentin 2020- No [id number] 100mg Take 1 [facility] 100 mg 6-26 07-27 capsule by ity of capsule 00:00: 04:59 mouth 3 [place] 00 :00 (three) Medical times Branch daily for 30 days. lipase-prot 2020- No [id number] 1{capsu Take 1 [facility] ease-amylas 6-26 07-27 le} capsule by i ty of e 00:00: 04:59 mouth 3 [place] 12,000-38,0 00 :00 (three) Medic al 00 -60,000 times Branch unit daily with capsule meals for 30 days. dicyclomine 2020- No [id number] 10mg Take 1 [facility] 10 mg 6-26 07-27 capsule by ity of capsule 00:00: 04:59 mouth 4 [place] 00 :00 (four) Medical times Branch daily for 30 days. gabapentin 2020- No [id number] 100mg Take 1 [facility] 100 mg 6-26 07-27 capsule by ity of capsule 00:00: 04:59 mouth 3 [place] 00 :00 (three) Medical times Branch daily for 30 days. lipase-prot 2020- No [id number] 1{capsu Take 1 [facility] ease-amylas 6-26 07-27 le} capsule by i ty of e 00:00: 04:59 mouth 3 [place] 12,000-38,0 00 :00 (three) Medic al 00 -60,000 times Branch unit daily with capsule meals for 30 days. dicyclomine 2020- No [id number] 10mg Take 1 [facility] 10 mg 6-26 07-27 capsule by ity of capsule 00:00: 04:59 mouth 4 [place] 00 :00 (four) Medical times Branch daily for 30 days. gabapentin 2020- No [id number] 100mg Take 1 [facility] 100 mg 6-26 07-27 capsule by ity of capsule 00:00: 04:59 mouth 3 [place] 00 :00 (three) Medical times Branch daily for 30 days. lipase-prot 2020- No [id number] 1{capsu Take 1 [facility] ease-amylas 6-26 07-27 le} capsule by i ty of e 00:00: 04:59 mouth 3 [place] 12,000-38,0 00 :00 (three) Medic al 00 -60,000 times Branch unit daily with capsule meals for 30 days. dicyclomine 2020- No [id number] 10mg Take 1 [facility] 10 mg 6-26 07-27 capsule by ity of capsule 00:00: 04:59 mouth 4 [place] 00 :00 (four) Medical times Branch daily for 30 days. gabapentin 2020- No [id number] 100mg Take 1 [facility] 100 mg 6-26 07-27 capsule by ity of capsule 00:00: 04:59 mouth 3 [place] 00 :00 (three) Medical times Branch daily for 30 days. lipase-prot 2020- No [id number] 1{capsu Take 1 [facility] ease-amylas 6-26 07-27 le} capsule by i ty of e 00:00: 04:59 mouth 3 [place] 12,000-38,0 00 :00 (three) Medic al 00 -60,000 times Branch unit daily with capsule meals for 30 days. dicyclomine 2020- No [id number] 10mg Take 1 [facility] 10 mg 6-26 07-27 capsule by ity of capsule 00:00: 04:59 mouth 4 [place] 00 :00 (four) Medical times Branch daily for 30 days. gabapentin 2020- No [id number] 100mg Take 1 [facility] 100 mg 6-26 07-27 capsule by ity of capsule 00:00: 04:59 mouth 3 [place] 00 :00 (three) Medical times Branch daily for 30 days. lipase-prot 2020- No [id number] 1{capsu Take 1 [facility] ease-amylas 6-26 07-27 le} capsule by i ty of e 00:00: 04:59 mouth 3 [place] 12,000-38,0 00 :00 (three) Medic al 00 -60,000 times Branch unit daily with capsule meals for 30 days. dicyclomine 2020- No [id number] 10mg Take 1 [facility] 10 mg 6-26 07-27 capsule by ity of capsule 00:00: 04:59 mouth 4 [place] 00 :00 (four) Medical times Branch daily for 30 days. gabapentin 2020- No [id number] 100mg Take 1 [facility] 100 mg 6-26 07-27 capsule by ity of capsule 00:00: 04:59 mouth 3 [place] 00 :00 (three) Medical times Branch daily for 30 days. traMADoL 50 2020- No [id number] 50mg Take 1 [facility] vers mg tablet 09-24-17 tablet by ity of 00:00: 04:59 mouth [place] 00 :00 every 6 Medical (six) Branch hours as needed for Pain (scale 7-10) for up to 20 days. Indication s: acute pain traMADoL 50 2020-0 2020- No [id number] 50mg Take 1 [facility] vers mg tablet 09-24-17 tablet by ity of 00:00: 04:59 mouth [place] 00 :00 every 6 Medical (six) Branch hours as needed for Pain (scale 7-10) for up to 20 days. Indication s: acute pain traMADoL 50 2020-0 2020- No [id number] 50mg Take 1 [facility] vers mg tablet 09-24- tablet by ity of 00:00: 04:59 mouth [place] 00 :00 every 6 Medical (six) Branch hours as needed for Pain (scale 7-10) for up to 20 days. Indication s: acute pain traMADoL 50 2020-2020- No [id number] 50mg Take 1 [facility] vers mg tablet 09-24- tablet by ity of 00:00: 04:59 mouth [place] 00 :00 every 6 Medical (six) Branch hours as needed for Pain (scale 7-10) for up to 20 days. Indication s: acute pain traMADoL 50 2020-0 2020- No [id number] 50mg Take 1 [facility] vers mg tablet 09-24- tablet by ity of 00:00: 04:59 mouth [place] 00 :00 every 6 Medical (six) Branch hours as needed for Pain (scale 7-10) for up to 20 days. Indication s: acute pain traMADoL 50 2020-0 2020- No [id number] 50mg Take 1 [facility] vers mg tablet 09-24-17 tablet by ity of 00:00: 04:59 mouth [place] 00 :00 every 6 Medical (six) Branch hours as needed for Pain (scale 7-10) for up to 20 days. Indication s: acute pain traMADoL 50 2020-0 2020- No [id number] 50mg Take 1 [facility] vers mg tablet 09-24-17 tablet by ity of 00:00: 04:59 mouth [place] 00 :00 every 6 Medical (six) Branch hours as needed for Pain (scale 7-10) for up to 20 days. Indication s: acute pain traMADoL 50 2020-0 2020- No [id number] 50mg Take 1 [facility] vers mg tablet 09-24-17 tablet by ity of 00:00: 04:59 mouth [place] 00 :00 every 6 Medical (six) Branch hours as needed for Pain (scale 7-10) for up to 20 days. Indication s: acute pain traMADoL 50 2020-0 2020- No [id number] 50mg Take 1 [facility] vers mg tablet -24 10-17 tablet by ity of 00:00: 04:59 mouth [place] 00 :00 every 6 Medical (six) Branch hours as needed for Pain (scale 7-10) for up to 20 days. Indication s: acute pain traMADoL 50 2020-2020- No [id number] 50mg Take 1 [facility] vers mg tablet -24 10-17 tablet by ity of 00:00: 04:59 mouth [place] 00 :00 every 6 Medical (six) Branch hours as needed for Pain (scale 7-10) for up to 20 days. Indication s: acute pain traMADoL 50 2020-2020- No [id number] 50mg Take 1 [facility] vers mg tablet 09-24-17 tablet by ity of 00:00: 04:59 mouth [place] 00 :00 every 6 Medical (six) Branch hours as needed for Pain (scale 7-10) for up to 20 days. Indication s: acute pain traMADoL 50 2020-0 2020- No [id number] 50mg Take 1 [facility] vers mg tablet 09-24-17 tablet by ity of 00:00: 04:59 mouth [place] 00 :00 every 6 Medical (six) Branch hours as needed for Pain (scale 7-10) for up to 20 days. Indication s: acute pain traMADoL 50 2020-0 2020- No 4647 50mg Take 1 Uni vers mg tablet 09-24-17 tablet by ity of 00:00: 04:59 mouth [place] 00 :00 every 6 Medical (six) Branch hours as needed for Pain (scale 7-10) for up to 20 days. Indication s: acute pain traMADoL 50 2020-0 2020- No 4647 50mg Take 1 Uni vers mg tablet 09-24-17 tablet by ity of 00:00: 04:59 mouth [place] 00 :00 every 6 Medical (six) Branch hours as needed for Pain (scale 7-10) for up to 20 days. Indication s: acute pain ketorolac Yes 30mg 30 mg, Univer s (TORADOL) 6-25 Slow IV ity of injection 20:16: Push, [place] 30 mg 23 Q8HPRN, 4 Medical doses, Branch Starting Sat09/23/20 at 1516, Until Discontinu ed, Routine, breakthrou gh pain
Fa culty member approving Restricted medication : DERIC SANTOS gabapentin Yes 100mg 100 mg, Uni vers (NEURONTIN) 6-25 Oral, TID, it y of capsule 100 19:00: First dose [place] mg 00 on [facility] 09/23/20 at Branch 1400, Until Discontinu ed, Routine dicyclomine Yes 10mg 10 mg, Univ ers (BENTYL) 6-25 Oral, QID, ity o f capsule 10 17:00: First dose [place] mg 00 on [facility] 09/23/20 at Branch 1200, Until Discontinu ed, Routine ketorolac 2020- No 15mg 15 mg, Unive rs (TORADOL) 625 06-25 Slow IV ity of injection 12:30: 11:33 Push, [place] 15 mg 00 :00 ONCE, 1 Medical dose, Sat [place] 09/23/20 at 0730, Routine
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 : VIKRAM MULLINS levothyroxi Yes 137ug 137 mcg, U nivers ne 6-25 Oral, ity of (SYNTHROID) 11:00: QAM-0600, [place] tablet 137 00 First dose Med ical mcg on Sat [place] 09/23/20 at 0600, Until Discontinu ed, Routine atorvastati Yes 80mg 80 mg, Univ ers n (LIPITOR) 6-25 Oral, QHS, it y of tablet 80 02:00: [place] dose [place] mg 00 on [facility] 09/22/20 at Branch 2100, Until Discontinu ed, Routine melatonin Yes 6mg 6 mg, Univers (MELATIN) 6-25 Oral, QHS, ity of tablet 6 mg 02:00: First dose [place] 00 on [facility] 09/22/20 at Branch 2100, Until Discontinu ed, Routine FENTanyl PF 2020- No 50ug 50 mcg, Un maddie (SUBLIMAZE 09-23 06 Slow IV ity o f (PF)) 00:36: 00:35 Push, [place] injection 42 :42 Q3HPRN, Medical 50 mcg Starting Branch [facility] 09/22/20 at 1936, Until 09/24/20 at 1935, Routine, Pain (scale 7-10) NaCl 0.9% 0 Yes 1000mL at 50 Unive rs (NS) IV 6-25 mL/hr, IV ity of infusion 00:00: [place]fusion, [place] 1,000 mL 00 CONTINUOUS Medic al , Starting Branch [facility] 09/22/20 at 1900, Until Discontinu ed, Routine levothyroxi 2020- No 125ug 125 mcg, [facility] 09-22-24 Oral, ity of (SYNTHROID) 17:15: 17:59 QAM-0600, [place] tablet 125 00 :00 1 dose, Medica l mcg First dose Branch on [facility] 09/22/20 at 1215, Routine foLIC acid Yes 1mg 1 mg, [facility] s (FOLATE) 09-22 Oral, ity of tablet 1 mg 14:00: DAILY, [place] 00 First dose Medical on [facility] Branch 09/22/20 at 0900, Until Discontinu ed, Routine escitalopra Yes 20mg 20 mg, [facility] m oxalate 09-22 Oral, ity of (LEXAPRO) 14:00: DAILY, [place] tablet 20 00 First dose Medi julieta mg on [facility] Branch 09/22/20 at 0900, Until Discontinu ed, Routine colchicine Yes .6mg 0.6 mg, [facility] ers (COLCRYS) 09-22 Oral, ity of tablet 0.6 14:00: DAILY, [place] mg 00 First dose Medical on [facility] Branch 09/22/20 at 0900, Until Discontinu ed, Routine clopidogreL 0 Yes 75mg 75 mg, [facility] ers (PLAVIX) 6-24 Oral, ity of tablet 75 14:00: DAILY, [place] mg 00 First dose Medical on [facility] 09/22/20 at 0900, Until Discontinu ed, Routine cholecalcif 0 Yes 1000U 1,000 Univ ers ester 6-24 Units, ity of (vitamin 14:00: Oral, [place] D3) tablet 00 DAILY, Medical 1,000 Units First dose Br anch on [facility] 09/22/20 at 0900, Until Discontinu ed, Routine aspirin EC 0 Yes 81mg 81 mg, Unive rs tablet 81 -24 Oral, ity of mg 14:00: DAILY, [place] 00 First dose Medical on [facility] 09/22/20 at 0900, Until Discontinu ed, Routine amLODIPine Yes 10mg 10 mg, Unive rs (NORVASC) 6-24 Oral, ity of tablet 10 14:00: DAILY, [place] mg 00 First dose Medical on [facility] Branch 09/22/20 at 0900, Until Discontinu ed, Routine multivitami Yes 1{tbl} 1 tablet, Univers n tablet 1 09-22 Oral, ity of tablet 14:00: DAILY, [place] 00 First dose Medical on [facility] 09/22/20 at 0900, Until Discontinu ed, Routine thiamine Yes 100mg 100 mg, Unive rs (VITAMIN -24 Oral, ity of B1) tablet 14:00: DAILY, [place] 100 mg 00 First dose Medical on [facility] 09/22/20 at 0900, Until Discontinu ed, Routine enoxaparin Yes 40mg 40 mg, Unive rs (LOVENOX) 09-22 Subcutaneo ity of injection 14:00: [place], DAILY, [place] 40 mg 00 First dose Medical on [facility] 09/22/20 at 0900, Until Discontinu ed, Routine lipase-prot 0 Yes 1{capsu 1 capsule, Univers ease-amylas 09-22 le} Oral, TID ity of e (CREON) 13:00: MEALS, [place] 12,000-38,0 00 First dose Me dical 00 -60,000 on [facility] unit 09/22/20 at capsule 1 0800, capsule Until Discontinu ed, Routine pantoprazol 0 Yes 40mg 40 mg, Univ ers e 6-24 Oral, BID, ity of (PROTONIX) 04:45: First dose [place] EC tablet 00 on Sat Medical 40 mg 09/21/20 at Branch 2345, Until Discontinu ed ferrous Yes 300mg 300 mg, Univer s sulfate 300 09-22 Oral, BID, it y of mg (60 mg 04:45: First dose [place] iron)/5 mL 00 on Sat Medical solution 09/21/20 at [facility] h 300 mg 2345, Until Discontinu ed, Routine albuterol Yes 2.5mg 2.5 mg, [facility] ers (PROVENTIL) 09-22 Inhalation it y of 2.5 mg /3 04:39: , Q4HPRN, Real as mL (0.083 18 Starting Medica l %) [facility] nebulizer 09/21/20 at solution 2339, 2.5 mg Until Discontinu ed, Routine, Wheezing, Shortness of Breath, Bronchospa sm lipase-prot Yes 1{capsu 1 capsule, Univers ease-amylas 09-22 le} Oral, ity of e (CREON) 04:37: QHSPRN, [place] 12,000-38,0 03 Starting Medi julieta 00 -60,000 Wed Branch unit 09/21/20 at capsule 1 2337, capsule Until Discontinu ed, Routine, abdominal pain with meals NaCl 0.9% 2020- No 1000mL at 100 Uni vers (NS) IV 09-22 06-24 mL/hr, IV ity of infusion 03:00: 23:58 Infusion, [place] as 1,000 mL 00 :40 CONTINUOUS Medic al , Starting Branch 09/21/20 at 2200, Until [place] 09/22/20 at 1858, Routine lactated 2020- No 1000mL at 200 [facility] ers ringers IV 09-22 06-25 mL/hr, ity of infusion 00:15: 00:43 1,000 mL, [place] 1,000 mL 00 :40 IV Medical Infusion, Branch CONTINUOUS , Starting 09/21/20 at 1915, Until [place] 09/22/20 at 1943, Routine ondansetron Yes 4mg 4 mg, Slow Univers (ZOFRAN 09-22 IV Push, ity of (PF)) 00:13: Q6HPRN, [place] injection 4 06 Starting Medi julieta mg Wed Branch 09/21/20 at 1913, Until Discontinu ed, Routine, Nausea and Vomiting (N/V) FENTanyl PF 2020- No 50ug 50 mcg, Un maddie (SUBLIMAZE 09-22 Slow IV ity o f (PF)) 00:12: 00:11 Push, [place] injection 59 :59 Q3HPRN, Medical 50 mcg Starting Branch 09/21/20 at 1912, Until [place] 09/22/20 at 191, Routine, Pain (scale 7-10) HYDROcodone 0 202- No 1{tbl} 1 tablet, Univers -acetaminop 09-22 Oral, ity of hen (NORCO 00:12: 00:11 Q6HPRN, [place] 5) 5-325 mg 53 :53 Starting Medi julieta tablet 1 Sat [place] tablet 09/21/20 at 191, Until 09/23/20 at 191, Routine, Pain (scale 4-6) acetaminoph Yes 650mg 650 mg, Un maddie en 09-22 Oral, ity of (TYLENOL) 00:12: Q6HPRN, [place] tablet 650 50 Starting Medic al mg Sat [place] 09/21/20 at 1912, Until Discontinu ed, Routine, Pain (scale 1-3) ondansetron 2020- No 4mg 4 mg, Slow Univers (ZOFRAN 09-21 IV Push, ity of (PF)) 23:30: 22:28 ONCE, 1 [place] injection 4 00 :00 dose, Sat Med ical mg 09/21/20 at Branch 1830, KENIA morpHINE 2020- No 4mg 4 mg, Slow Un maddie injection 4 09-21 IV Push, ity of mg 23:30: 22:28 ONCE, 1 [place] 00 :00 dose, [facility] Medical 09/21/20 at Branch 1830, STAT pantoprazol Yes Univer s e 40 mg EC 6-15 ity of tablet 00:00: [address] pantoprazol Yes Univer s e 40 mg EC 6-15 ity of tablet 00:00: [place] [facility] pantoprazol Yes Univer s e 40 mg EC 6-15 ity of tablet 00:00: [place] [facility] pantoprazol 2021-0 Yes Univer s e 40 mg EC 6-15 ity of tablet 00:00: [place] 00 Medical Branch pantoprazol 2021-0 Yes Univer s e 40 mg EC 6-15 ity of tablet 00:00: [place] [facility] pantoprazol 1-0 Yes Univer s e 40 mg EC 6-15 ity of tablet 00:00: [place] [facility] pantoprazol 2021-0 Yes Univer s e 40 mg EC 6-15 ity of tablet 00:00: [place] [facility] pantoprazol 1-0 Yes Univer s e 40 mg EC 6-15 ity of tablet 00:00: [place] [facility] pantoprazol 1-0 Yes Univer s e 40 mg EC 6-15 ity of tablet 00:00: [place] [facility] pantoprazol 2020-0 Yes Univer s e 40 mg EC 6-15 ity of tablet 00:00: [place] [facility] pantoprazol 2020-0 Yes Univer s e 40 mg EC 6-15 ity of tablet 00:00: [place] [facility] pantoprazol 2020-0 Yes Univer s e 40 mg EC 6-15 ity of tablet 00:00: [place] [facility] pantoprazol 1-0 Yes Univer s e 40 mg EC 6-15 ity of tablet 00:00: [place] [facility] pantoprazol 1-0 Yes Univer s e 40 mg EC 6-15 ity of tablet 00:00: [place] [facility] pantoprazol 1-0 Yes Univer s e 40 mg EC 6-15 ity of tablet 00:00: [place] [facility] pantoprazol 2021-0 Yes Univer s e 40 mg EC 6-15 ity of tablet 00:00: [place] [facility] pantoprazol 1-0 Yes Univer s e 40 mg EC 6-15 ity of tablet 00:00: [place] [facility] pantoprazol 1-0 Yes Univer s e 40 mg EC 6-15 ity of tablet 00:00: [place] [facility] pantoprazol 2020-0 Yes Univer s e 40 mg EC 6-15 ity of tablet 00:00: [place] [facility] pantoprazol 1-0 Yes Univer s e 40 mg EC 6-15 ity of tablet 00:00: [place] [facility] pantoprazol Yes Univer s e 40 mg EC 6-15 ity of tablet 00:00: [place] 00 Medical Branch pantoprazol Yes Univer s e 40 mg EC 6-15 ity of tablet 00:00: [place] 00 [facility] Branch pantoprazol Yes Univer s e 40 mg EC 6-15 ity of tablet 00:00: [place] 00 [facility] pantoprazol 2020- No Unive rs e 40 mg EC 6-15 11-30 ity of tablet 00:00: 00:00 [place] 00 :00 [facility] Branch pantoprazol 2020- No Unive rs e 40 mg EC 6-15 11-30 ity of tablet 00:00: 00:00 [place] 00 :00 [facility] ESCITALOPRA Yes [id number] TAKE ONE Univers M OXALATE 6-08 TABLET BY ity o f 20 mg 00:00: MOUTH [place] tablet 00 DAILY AT [address] ESCITALOPRA Yes [id number] TAKE ONE Univers M OXALATE 6-08 TABLET BY ity o f 20 mg 00:00: MOUTH [place] tablet 00 DAILY AT [address] ESCITALOPRA Yes [id number] TAKE ONE Univers M OXALATE 6-08 TABLET BY ity o f 20 mg 00:00: MOUTH [place] tablet 00 DAILY AT [address] ESCITALOPRA 2020- No [id number] TAKE ONE Univers M OXALATE 6-08 06-26 TABLET BY ity of 20 mg 00:00: 00:00 MOUTH [place] tablet 00 :00 DAILY AT [address] Branch amLODIPine 2020- No [id number] 10mg Take 1 Univers 10 mg 08-29 tablet by ity of tablet 00:00: 04:59 mouth [place] 00 :00 daily for Medical 30 days. Branch foLIC acid 2020- No [id number] 1mg Take 1 Univers 1 mg tablet 08-29 tablet by it y of 00:00: 04:59 mouth [place] 00 :00 daily for Medical 30 days. Branch multivitami 2020- No [id number] 1{tbl} Take 1 Univers n tablet 08-29 tablet by ity o f 00:00: 04:59 mouth [place] 00 :00 daily for Medical 30 days. Myesha thiamine No [id number] 100mg Take 1 Univers 100 mg -29 10- tablet by ity of tablet 00:00: 04:59 mouth [place] 00 :00 daily for Medical 30 days. [place] amLODIPine No [id number] 10mg Take 1 Univers 10 mg -29 10- tablet by ity of tablet 00:00: 04:59 mouth [place] 00 :00 daily for Medical 30 days. [place] foLIC acid 2020- No [id number] 1mg Take 1 Univers 1 mg tablet 08-29- tablet by it y of 00:00: 04:59 mouth [place] 00 :00 daily for Medical 30 days. [place] multivitami No [id number] 1{tbl} Take 1 Univers n tablet 08-29- tablet by ity o f 00:00: 04:59 mouth [place] 00 :00 daily for Medical 30 days. [place] thiamine No [id number] 100mg Take 1 Univers 100 mg -29 10- tablet by ity of tablet 00:00: 04:59 mouth [place] 00 :00 daily for Medical 30 days. [place] amLODIPine 2020- No [id number] 10mg Take 1 Univers 10 mg 08-29- tablet by ity of tablet 00:00: 04:59 mouth [place] 00 :00 daily for Medical 30 days. [place] foLIC acid No [id number] 1mg Take 1 Univers 1 mg tablet 08-29- tablet by it y of 00:00: 04:59 mouth [place] 00 :00 daily for Medical 30 days. [place] multivitami No [id number] 1{tbl} Take 1 Univers n tablet 08-29- tablet by ity o f 00:00: 04:59 mouth [place] 00 :00 daily for Medical 30 days. Branch thiamine 2020- No [id number] 100mg Take 1 Univers 100 mg 5-29 10-01 tablet by ity of tablet 00:00: 04:59 mouth [place] 00 :00 daily for Medical 30 days. Branch amLODIPine 2020- No [id number] 10mg Take 1 Univers 10 mg 5-29 10-01 tablet by ity of tablet 00:00: 04:59 mouth [place] 00 :00 daily for Medical 30 days. [place] foLIC acid 2020- No [id number] 1mg Take 1 Univers 1 mg tablet 08-29 tablet by it y of 00:00: 04:59 mouth [place] 00 :00 daily for Medical 30 days. [place] multivitami 2020- No [id number] 1{tbl} Take 1 Univers n tablet 08-29 tablet by ity o f 00:00: 04:59 mouth [place] 00 :00 daily for Medical 30 days. Branch thiamine 2020- No [id number] 100mg Take 1 Univers 100 mg 08-29 tablet by ity of tablet 00:00: 04:59 mouth [place] 00 :00 daily for Medical 30 days. [place] foLIC acid 2020- No [id number] 1mg Take 1 Univers 1 mg tablet 08-29 tablet by it y of 00:00: 04:59 mouth [place] 00 :00 daily for Medical 30 days. [place] multivitami 2020- No [id number] 1{tbl} Take 1 Univers n tablet 08-29 tablet by ity o f 00:00: 04:59 mouth [place] 00 :00 daily for Medical 30 days. Branch thiamine 2020- No [id number] 100mg Take 1 Univers 100 mg 08-29 tablet by ity of tablet 00:00: 04:59 mouth [place] 00 :00 daily for Medical 30 days. [place] foLIC acid 2020- No [id number] 1mg Take 1 Univers 1 mg tablet 08-29 tablet by it y of 00:00: 04:59 mouth [place] 00 :00 daily for Medical 30 days. [place] multivitami 2020- No [id number] 1{tbl} Take 1 Univers n tablet 08-29- tablet by ity o f 00:00: 04:59 mouth [place] 00 :00 daily for Medical 30 days. Branch thiamine 2020- No [id number] 100mg Take 1 Univers 100 mg 08-29- tablet by ity of tablet 00:00: 04:59 mouth [place] 00 :00 daily for Medical 30 days. Branch foLIC acid 2020- No [id number] 1mg Take 1 Univers 1 mg tablet 08-29- tablet by it y of 00:00: 04:59 mouth [place] 00 :00 daily for Medical 30 days. Branch multivitami 2020- No [id number] 1{tbl} Take 1 Univers n tablet 08-29- tablet by ity o f 00:00: 04:59 mouth [place] 00 :00 daily for Medical 30 days. Branch thiamine 2020- No [id number] 100mg Take 1 Univers 100 mg 08-29- tablet by ity of tablet 00:00: 04:59 mouth [place] 00 :00 daily for Medical 30 days. Branch foLIC acid 2020- No [id number] 1mg Take 1 Univers 1 mg tablet 08-29 tablet by it y of 00:00: 04:59 mouth [place] 00 :00 daily for Medical 30 days. [place] multivitami 2020- No [id number] 1{tbl} Take 1 Univers n tablet 08-29- tablet by ity o f 00:00: 04:59 mouth [place] 00 :00 daily for Medical 30 days. Branch thiamine 2020- No [id number] 100mg Take 1 Univers 100 mg 08-29- tablet by ity of tablet 00:00: 04:59 mouth [place] 00 :00 daily for Medical 30 days. Branch foLIC acid 2020- No [id number] 1mg Take 1 Univers 1 mg tablet 08-29 tablet by it y of 00:00: 04:59 mouth [place] 00 :00 daily for Medical 30 days. [place] multivitami 2020- No [id number] 1{tbl} Take 1 Univers n tablet 08-29- tablet by ity o f 00:00: 04:59 mouth [place] 00 :00 daily for Medical 30 days. Branch thiamine 2020- No [id number] 100mg Take 1 Univers 100 mg -29 10- tablet by ity of tablet 00:00: 04:59 mouth [place] 00 :00 daily for Medical 30 days. Branch foLIC acid 2020- No [id number] 1mg Take 1 Univers 1 mg tablet 08-29- tablet by it y of 00:00: 04:59 mouth [place] 00 :00 daily for Medical 30 days. Branch multivitami 2020- No [id number] 1{tbl} Take 1 Univers n tablet 08-29 tablet by ity o f 00:00: 04:59 mouth [place] 00 :00 daily for Medical 30 days. Branch thiamine 2020- No [id number] 100mg Take 1 Univers 100 mg 08-29 tablet by ity of tablet 00:00: 04:59 mouth [place] 00 :00 daily for Medical 30 days. Branch amLODIPine 2020- No [id number] 10mg Take 1 Univers 10 mg 08-29 tablet by ity of tablet 00:00: 00:00 mouth [place] 00 :00 daily for Medical 30 days. Branch nicotine Yes 1{patch Apply 1 Univers mg/24 hr 5-30 } Patch to ity of patch 16:38: area(s) [place] 23 every 24 Medical (twenty-fo Branch ur) hours. nicotine Yes 1{patch Apply 1 Univers mg/24 hr 5-30 } Patch to ity of patch 16:38: area(s) [place] 23 every 24 Medical (twenty-fo Branch ur) hours. nicotine Yes 1{patch Apply 1 Univers mg/24 hr 5-30 } Patch to ity of patch 16:38: area(s) [place] 23 every 24 Medical (twenty-fo Branch ur) hours. nicotine Yes 1{patch Apply 1 Univers mg/24 hr 5-30 } Patch to ity of patch 16:38: area(s) [place] 23 every 24 Medical (twenty-fo Branch ur) hours. multivitami Yes 1{tbl} 1 tablet, Univers n tablet 1 5-30 Oral, ity of tablet 14:00: DAILY, [place] 00 First dose Medical (after Branch last modificati on) on [place] 08/28/20 at 0900, Until Discontinu ed, Routine foLIC acid Yes 1mg 1 mg, Univer s (FOLATE) 5-30 Oral, ity of tablet 1 mg 14:00: DAILY, [place] 00 First dose Medical on [place] 08/28/20 at 0900, Until Discontinu ed, Routine thiamine Yes 100mg 100 mg, Unive rs (VITAMIN 5-30 Oral, ity of B1) tablet 14:00: DAILY, [place] 100 mg 00 First dose Medical on [place] 08/28/20 at 0900, Until Discontinu ed, Routine traMADoL 50 Yes [id number] 50mg Take 1 Univ ers mg tablet 5-30 tablet by ity o f 00:00: mouth [place] 00 every 6 Medical (six) Branch hours as needed for Pain (scale 7-10). Indication s: acute pain traMADoL 50 2020-0 Yes [id number] 50mg Take 1 Univ ers mg tablet 5-30 tablet by ity o f 00:00: mouth [place] 00 every 6 Medical (six) Branch hours as needed for Pain (scale 7-10). Indication s: acute pain traMADoL 50 Yes [id number] 50mg Take 1 Univ ers mg tablet 5-30 tablet by ity o f 00:00: mouth [place] 00 every 6 Medical (six) Branch hours as needed for Pain (scale 7-10). Indication s: acute pain traMADoL 50 Yes 4647 50mg Take 1 Univ ers mg tablet 5-30 tablet by ity o f 00:00: mouth [place] 00 every 6 Medical (six) Branch hours as needed for Pain (scale 7-10). Indication s: acute pain traMADoL 50 2020-0 2020- No [id number] 50mg Take 1 Uni vers mg tablet 5-30 06-26 tablet by ity of 00:00: 00:00 mouth [place] 00 :00 every 6 Medical (six) Branch hours as needed for Pain (scale 7-10). Indication s: acute pain FENTanyl PF Yes 50ug 50 mcg, Uni vers (SUBLIMAZE 08-27 Slow IV ity of (PF)) 22:50: Push, [place] injection 21 Q4HPRN, Medical 50 mcg Starting Branch 08/27/20 at 1750, Until Discontinu ed, Routine, Pain (scale 7-10) magnesium 2020- No 2g 2 g, IV Univ ers sulfate in 08-27 Piggyback, it y of water 2 16:45: 16:27 ONCE, 1 [place] gram/50 mL 00 :00 dose, Sat Medi julieta (4 %) 08/27/20 at Branch infusion 2 1145, g Routine potassium 2020- No 10meq 10 mEq, IV Univers chloride in 08-27 Piggyback, i ty of water 10 16:00: 19:00 Q1H, 4 [place] mEq/100 mL 00 :00 doses, Medical 10 mEq First dose Branch piggyback (after last modificati on) on 08/27/20 at 1100, Last dose on 08/27/20 at 1400 lactated 2020-0 Yes 1000mL at 100 Unive rs ringers IV 08-27 mL/hr, ity of infusion 15:30: 1,000 mL, [place] 1,000 mL 00 IV Medical Infusion, Branch CONTINUOUS , Starting 08/27/20 at 1030, Until Discontinu ed, Routine amLODIPine Yes 10mg 10 mg, Unive rs (NORVASC) 08-27 Oral, ity of tablet 10 15:30: DAILY, [place] mg 00 First dose Medical on Sat Branch 08/27/20 at 1030, Until Discontinu ed, Routine magnesium 2020- No 2g 2 g, IV Univ ers sulfate in 08-27 Piggyback, it y of water 2 14:45: 14:22 ONCE, 1 [place] gram/50 mL 00 :00 dose, Sat Medi julieta (4 %) 08/27/20 at Branch infusion 2 0945, g Routine hydralAZINE Yes 10mg 10 mg, Univ ers (APRESOLINE 08-27 Slow IV ity o f ) injection 14:03: Push, [place] 10 mg 08 Q6HPRN, Medical Starting Branch 08/27/20 at 0903, Until Discontinu ed, Routine, DBP=>100; SBP=>160, For SBP > 160
Ind ication: Hypertensi ve Emergency escitalopra Yes 20mg 20 mg, Univ ers m oxalate 08-27 Oral, ity of (LEXAPRO) 14:00: DAILY, [place] tablet 20 00 First dose Medi julieta mg on Sat Branch 08/27/20 at 0900, Until Discontinu ed, Routine KCL 2020- No 60meq 60 mEq, Univers (KLOR-CON 08-27 Oral, ity of M20) tablet 12:00: 12:37 ONCE, 1 [place] 60 mEq 00 :00 dose, Sat Medical 08/27/20 at Branch 0700, Routine levothyroxi Yes 125ug 125 mcg, U nivers ne 08-27 Oral, ity of (SYNTHROID) 11:00: QAM-0600, [place] tablet 125 00 First dose Med ical mcg on Sat [place] 08/27/20 at 0600, Until Discontinu ed, Routine ipratropium Yes 3mL 3 mL, Unive rs -albuteroL 08-27 Inhalation ity of (DUONEB) 01:00: , QID, [place] 0.5 mg-3 00 First dose Medic al mg(2.5 mg (after Branch base)/3 mL last nebulizer modificati solution 3 on) on 08/26/20 at 2000, Until Discontinu ed, Routine enoxaparin Yes 40mg 40 mg, Unive rs (LOVENOX) 08-26 Subcutaneo ity of injection 22:00: [place], DAILY, [place] 40 mg 00 First dose Medical on Sat [place] 08/26/20 at 1700, Until Discontinu ed, Routine lipase-prot Yes 1{capsu 1 capsule, Univers ease-amylas 08-26 le} Oral, TID ity of e (CREON) 22:00: MEALS, [place] 12,000-38,0 00 First dose Me dical 00 -60,000 (after Branch unit last capsule 1 modificati capsule on) on Sat08/26/20 at 1700, Until Discontinu ed, Routine nicotine Yes 1{patch 1 Patch, Un maddie (NICODERM) 08-26 } Topical, ity o f 21 mg/24 hr 21:15: Administer [place] patch 1 00 over 24 Medical Patch Hours, Branch Q24H, First dose (after last modificati on) on Sat08/26/20 at 1615, Until Discontinu ed, Routine lactated 2020-0 2020- No 1000mL at 150 Univ ers ringers IV 08-26 05-29 mL/hr, ity of infusion 21:15: 15:29 1,000 mL, Real as 1,000 mL 00 :43 IV Medical Infusion, Branch CONTINUOUS , Starting Sat08/26/20 at 1615, Until Sat08/27/20 at 1029, Routine ondansetron Yes 4mg 4 mg, Slow Univers (ZOFRAN 08-26 IV Push, ity of (PF)) 21:12: Q6HPRN, [place] injection 4 27 Starting Medi julieta mg Fri Branch 08/26/20 at 1612, Until Discontinu ed, Routine, Nausea and Vomiting (N/V) morpHINE 2020- No 4mg 4 mg, Slow Un maddie injection 4 08-26 IV Push, ity of mg 21:12: 21:11 Q6HPRN, [place] 19 :19 Starting Medical Fri Branch 08/26/20 at 1612, Until 08/27/20 at 1611, Routine, Pain (scale 7-10) HYDROcodone 2020- No 1{tbl} 1 tablet, Univers -acetaminop 08-26 Oral, ity of hen (NORCO 21:12: 21:11 Q6HPRN, Real as 5) 5-325 mg 10 :10 Starting Medi julieta tablet 1 Fri Branch tablet 08/26/20 at 1612, Until 08/28/20 at 1611, Routine, Pain (scale 4-6) acetaminoph Yes 650mg 650 mg, Un maddie en 08-26 Oral, ity of (TYLENOL) 21:12: [place], [place] tablet 650 05 Starting Medic al mg Fri Branch 08/26/20 at 1612, Until Discontinu ed, Routine, Pain (scale 1-3) NaCl 0.9% 2020- No 1000mL at 999 Uni vers (NS) bolus 08-26 mL/hr, ity of infusion 18:30: 19:40 1,000 mL, Real as 1,000 mL 00 :00 IV Medical Infusion, Branch ONCE, 1 dose, 08/26/20 at 1330, STAT proMETHazin 2020- No 25mg 25 mg, IV Univers e 08-26 Piggyback, ity of (PHENERGAN) 17:15: 16:19 ONCE, 1 [place] 25 mg in 00 :00 dose, Fri Medica l NaCl 0.9% 08/26/20 at Bran ch (NS) 50 mL 1215, 50 piggyback mL FENTanyl PF 2020- No 50ug 50 mcg, Un maddie (SUBLIMAZE 08-26 Slow IV ity o f (PF)) 17:15: 16:31 Push, [place] injection 00 :00 ONCE, 1 Medical 50 mcg dose, Fri Branch 08/26/20 at 1215, Routine ipratropium 2020- No 3mL 3 mL, Univ ers -albuteroL 08-26 Inhalation it y of (DUONEB) 17:00: 20:37 , QID, [place] 0.5 mg-3 00 :56 First dose Medic al mg(2.5 mg on Sat Branch base)/3 mL 08/26/20 at nebulizer 1200, solution 3 Until mL Discontinu ed, Routine NaCl 0.9% 2020- No 1000mL at 999 Uni vers (NS) bolus 08-26 mL/hr, ity of infusion 15:30: 14:27 1,000 mL, Real as 1,000 mL 00 :00 Intravenou Medic al s, ONCE, 1 Branch dose, 08/26/20 at 1030, STAT ondansetron 2020- No 4mg 4 mg, Slow Univers (ZOFRAN 08-26 IV Push, ity of (PF)) 15:30: 14:28 ONCE, 1 [place] injection 4 00 :00 dose, Sat Med ical mg 08/26/20 at Branch 1030, KENIA morpHINE 2020- No 4mg 4 mg, Slow Un m[facility]ie injection 4 08-26 IV Push, ity of mg 15:30: 14:28 ONCE, 1 [place] 00 :00 dose, Fri Medical 08/26/20 at Branch 1030, STAT nicotine 21 Yes 1{patch Apply 1 [facility] mg/24 hr 5-25 } Patch to ity of patch 21:28: area(s) [place] 24 every 24 Medical (twenty-fo Branch ur) hours. nicotine 2020-0 Yes 1{patch Apply 1 [facility] mg/24 hr 5-25 } Patch to ity of patch 21:28: area(s) [place] 24 every 24 Medical (twenty-fo Branch ur) hours. hydralAZINE 2020- No 5mg 5 mg, Slow [facility] (APRESOLINE 08-23 05-25 IV Push, ity of ) injection 20:45: 20:36 ONCE, 1 [place] 5 mg 00 :00 dose, [facility] 08/23/20 at Branch 1545, STAT
In dication: Hypertensi ve Emergency escitalopra Yes 20mg 20 mg, Univ ers m oxalate 5-25 Oral, ity of (LEXAPRO) 14:00: DAILY, [place] tablet 20 00 First dose Medi julieta mg on [facility] 08/23/20 at 0900, Until Discontinu ed, Routine ipratropium Yes 3mL 3 mL, [facility] rs -albuteroL 25 Inhalation ity of (DUONEB) 13:00: , QID, [place] 0.5 mg-3 00 First dose Medic al mg(2.5 mg on Sat [place] [facility])/3 mL 08/23/20 at nebulizer 0800, solution 3 Until mL Discontinu ed, Routine lipase-prot Yes 1{capsu 1 capsule, Univers ease-amylas 25 le} Oral, TID ity of e (CREON) 13:00: MEALS, [place] 12,000-38,0 00 First dose Me dical 00 -60,000 on [facility] unit 08/23/20 at capsule 1 0800, capsule Until Discontinu ed, Routine KCL 2020- No 40meq 40 mEq, Univers (KLOR-CON 08-23 05-25 Oral, Q2H, ity of M20) tablet 13:00: 15:38 2 doses, [place] 40 mEq 00 :00 First dose Medical (after Branch last modificati on) on Sat08/23/20 at 0800, Last dose on Sat08/23/20 at 1000, Routine levothyroxi Yes 125ug 125 mcg, U nivers ne 525 Oral, ity of (SYNTHROID) 11:00: QAM-0600, [place] tablet 125 00 First dose Med ical mcg on [facility] Branch 08/23/20 at 0600, Until Discontinu ed, Routine potassium 2020-2020- No 10meq 10 mEq, IV Univers chloride in 5-25 05-25 Piggyback, i ty of water 10 02:15: 03:59 Q1H, 2 [place] mEq/100 mL 00 :00 doses, Medical RTU 10 mEq First dose Bra nch on [facility] 08/22/20 at 2115, Last dose on [facility] 08/22/20 at 2200, 100 mL KCL 2020-2020- No 40meq 40 mEq, Univers (KLOR-CON 08-23 05-25 Oral, ity of M20) tablet 02:15: 02:43 ONCE, 1 [place] 40 mEq 00 :00 dose, [facility] Medical 08/22/20 at Branch 2115, Routine nicotine 2020-0 Yes 1{patch 1 Patch, Un m[facility]ie (NICODERM) 525 } Topical, ity o f 21 mg/24 hr 01:15: Administer [place] patch 1 00 over 24 Medical Patch Hours, [place] Q24H, First dose on [facility] 08/22/20 at 2015, Until Discontinu ed, Routine morpHINE 2020-0 Yes 2mg 2 mg, Slow Uni vers injection 2 24 IV Push, ity of mg 22:27: Q6HPRN, [place] 23 Starting Medical [facility] 08/22/20 at 1727, Until Discontinu ed, Routine, Pain (scale 7-10) HYDROcodone 0 Yes 1{tbl} 1 tablet, Univers -acetaminop 08-22 Oral, ity of hen (NORCO 22:27: Q4HPRN, [facility] s 5) 5-325 mg 13 Starting Medi julieta tablet 1 [facility] tablet 08/22/20 at 1727, Until Discontinu ed, Routine, Pain (scale 4-6) enoxaparin 0 Yes 40mg 40 mg, Unive rs (LOVENOX) 5-24 Subcutaneo ity of injection 22:00: [place], DAILY, [place] 40 mg 00 First dose Medical on [facility] 08/22/20 at 1700, Until Discontinu ed, Routine ondansetron 0 2020- No 4mg 4 mg, Slow Univers (ZOFRAN 08-22 05-24 IV Push, ity of (PF)) 19:30: 18:32 ONCE, 1 [place] injection 4 00 :00 dose, [facility] Med ical mg 08/22/20 at Branch 1430, KENIA magnesium 2020- No 2g 2 g, IV Univ ers sulfate in 08-22 Piggyback, it y of water 2 18:45: 21:07 ONCE, 1 [place] gram/50 mL 00 :00 dose, Mon Medi julieta (4 %) 08/22/20 at Branch infusion 2 1345, g Routine FENTanyl PF 2020- No 50ug 50 mcg, [facility] (SUBLIMAZE 08-22 Slow IV ity o f (PF)) 18:30: 17:34 Push, [place] injection 00 :00 ONCE, 1 Medical 50 mcg dose, [facility] 08/22/20 at 1330, Routine NaCl 0.9% 2020- No IV Univers (NS) 1000 08-22 Infusion, ity of mL + KCL 40 17:00: 12:57 at 150 [place] mEq 00 :47 mL/hr, Medical CONTINUOUS Branch , Starting 08/22/20 at 1200, Until 08/23/20 at 0757, KENIA acetaminoph Yes 650mg 650 mg, [facility] en 08-22 Oral, ity of (TYLENOL) 16:53: Q6HPRN, [place] tablet 650 09 Starting Medic al mg [facility] 08/22/20 at 1153, Until Discontinu ed, Routine, Pain (scale 1-3) ondansetron 2020- No 4mg 4 mg, Slow Univers (ZOFRAN 08-22 IV Push, ity of (PF)) 16:15: 15:25 ONCE, 1 [place] injection 4 00 :00 dose, Mon Med ical mg 08/22/20 at Branch 1115, Routine morpHINE 2020- No 4mg 4 mg, Slow [facility] injection 4 08-22 IV Push, ity of mg 16:15: 15:25 ONCE, 1 [place] 00 :00 dose, Mon Medical 08/22/20 at Branch 1115, STAT cefTRIAXone 2020- No 1000mg 1,000 mg, Univers (ROCEPHIN) 08-22 IV ity of 1,000 mg in 16:15: 15:57 Piggyback, [place] NaCl 0.9% 00 :00 ONCE, 1 Medical (NS) 50 mL dose, Mon Bran ch MINI-BAG 08/22/20 at 1115, 50 mL
Reas on for Anti-Infec tive: Empiric Therapy for Suspected Infection< br>Empiric Therapy Site: Abdominal< br>Duratio n of therapy: 72 hours NaCl 0.9% 2020- No 1000mL at 999 Uni vers (NS) bolus -24 05-24 mL/hr, ity of infusion 16:15: 17:55 1,000 mL, [place] 1,000 mL 00 :[facility] dose, [facility] 08/22/20 at 1115, STAT escitalopra Yes [id number] 20mg Take 1 Univers m oxalate 3-17 tablet by ity o f 20 mg 00:00: mouth [place] tablet 00 daily. Medical Takes at [place] 06 escitalopra Yes [id number] 20mg Take 1 Univers m oxalate 3-17 tablet by ity o f 20 mg 00:00: mouth [place] tablet 00 daily. Medical Takes at [place] 06 escitalopra Yes [id number] 20mg Take 1 Univers m oxalate 3-17 tablet by ity o f 20 mg 00:00: mouth [place] tablet 00 daily. Medical Takes at [place] 06 escitalopra Yes [id number] 20mg Take 1 Univers m oxalate 3-17 tablet by ity o f 20 mg 00:00: mouth [place] tablet 00 daily. Medical Takes at [place] 06 escitalopra 2020- No [id number] 20mg Take 1 Univers m oxalate 3-17 06-08 tablet by ity of 20 mg 00:00: 00:00 mouth [place] tablet 00 :00 daily. Medical Takes at [place] 06 morpHINE 2020- No 4mg 4 mg, Slow Un [facility] injection 4 04-21 IV Push, ity of mg 03:45: 02:45 ONCE, 1 [place] 00 :00 dose, Wed Medical 04/20/20 at Branch 2145, STAT ondansetron 2020- No 4mg 4 mg, Slow Univers (ZOFRAN 04-21 IV Push, ity of (PF)) 01:30: 00:34 ONCE, 1 [place] injection 4 00 :00 dose, Sat Med ical mg 04/20/20 at Branch 1930, KENIA FENTanyl PF 2020- No 50ug 50 mcg, [facility]ie (SUBLIMAZE 04-21 Slow IV ity o f (PF)) 01:00: 23:56 Push, [place] injection 00 :00 ONCE, 1 Medical 50 mcg dose, Wed Branch 04/20/20 at 1900, Routine ondansetron 2020- No 4mg 4 mg, Slow Univers (ZOFRAN 04-21 IV Push, ity of (PF)) 00:00: 23:12 ONCE, 1 [place] injection 4 00 :00 dose, Wed Med ical mg 04/20/20 at Branch 1800, KENIA NaCl 0.9% 2020- No 1000mL at 999 Uni vers (NS) bolus 04-20 mL/hr, ity of infusion 23:00: 02:30 1,000 mL, [place] 1,000 mL 00 :00 IV Medical Infusion, Branch ONCE, 1 dose, 04/20/20 at 1700, KENIA traMADoL 50 Yes [id number] 50mg Take 1 Univ ers mg tablet 1-20 tablet by ity o f 00:00: mouth [place] 00 every 6 Medical (six) Branch hours as needed for Pain (scale 7-10). Indication s: acute pain proMETHazin Yes [id number] 25mg Take 1 Univers e 25 mg 1-20 tablet by ity of tablet 00:00: mouth [place] 00 every 6 Medical (six) Branch hours as needed for Nausea and Vomiting (N/V). traMADoL 50 0 Yes [id number] 50mg Take 1 Univ ers mg tablet 1-20 tablet by ity o f 00:00: mouth [place] 00 every 6 Medical (six) Branch hours as needed for Pain (scale 7-10). Indication s: acute pain proMETHazin Yes [id number] 25mg Take 1 Univers e 25 mg 1-20 tablet by ity of tablet 00:00: mouth [place] 00 every 6 Medical (six) Branch hours as needed for Nausea and Vomiting (N/V). traMADoL 50 Yes [id number] 50mg Take 1 Univ ers mg tablet 1-20 tablet by ity o f 00:00: mouth [place] 00 every 6 Medical (six) Branch hours as needed for Pain (scale 7-10). Indication s: acute pain proMETHazin Yes [id number] 25mg Take 1 Univers e 25 mg 1-20 tablet by ity of tablet 00:00: mouth [place] 00 every 6 Medical (six) Branch hours as needed for Nausea and Vomiting (N/V). traMADoL 50 Yes [id number] 50mg Take 1 Univ ers mg tablet 1-20 tablet by ity o f 00:00: mouth [place] 00 every 6 Medical (six) Branch hours as needed for Pain (scale 7-10). Indication s: acute pain proMETHazin Yes [id number] 25mg Take 1 [facility] e 25 mg 1-20 tablet by ity of tablet 00:00: mouth [place] 00 every 6 Medical (six) Branch hours as needed for Nausea and Vomiting (N/V). traMADoL 50 0 2020- No [id number] 50mg Take 1 Uni vers mg tablet 1-20 05-30 tablet by ity of 00:00: 00:00 mouth [place] 00 :00 every 6 Medical (six) Branch hours as needed for Pain (scale 7-10). Indication s: acute pain proMETHazin 2020- No [id number] 25mg Take 1 Univers e 25 mg 1-20 05-30 tablet by ity of tablet 00:00: 00:00 mouth [place] 00 :00 every 6 Medical (six) Branch hours as needed for Nausea and Vomiting (N/V). levothyroxi 2019-04- No 125ug Take 125 Univers ne 125 mcg 2-10 12-09 mcg by ity of tablet 02:31: 00:00 mouth [place] 52 :00 every Medical other day. Branch levothyroxi 2019-04- No 125ug Take 125 Univers ne 125 mcg 2-10 12-09 mcg by ity of tablet 02:31: 00:00 mouth [place] 52 :00 every Medical other day. Branch levothyroxi 2019-04- No 125ug Take 125 Univers ne 125 mcg 2-10 12-09 mcg by ity of tablet 02:31: 00:00 mouth [place] 52 :00 every Medical other day. Branch levothyroxi 2019-04 Yes [id number] 1 tablet Univers ne 125 mcg 2-09 by mouth ity o f tablet 00:00: every day Medical (alternati Branch ng with 137mcg dose) levothyroxi 2020- Yes [id number] 1 tablet Univers ne 137 mcg 2-09 by mouth ity o f tablet 00:00: every day Medical (alternati Branch ng with 125mcg dose) levothyroxi 2020- Yes [id number] 1 tablet Univers ne 125 mcg 2-09 by mouth ity o f tablet 00:00: every day Medical (alternati Branch ng with 137mcg dose) levothyroxi 2020- Yes [id number] 1 tablet Univers ne 137 mcg 2-09 by mouth ity o f tablet 00:00: every [place] day Medical (alternati Branch ng with 125mcg dose) levothyroxi 2020- Yes [id number] 1 tablet Univers ne 125 mcg 2-09 by mouth ity o f tablet 00:00: every [place] day Medical (alternati Branch ng with 137mcg dose) levothyroxi 2020- Yes [id number] 1 tablet Univers ne 137 mcg 2-09 by mouth ity o f tablet 00:00: every day Medical (alternati Branch ng with 125mcg dose) levothyroxi 2020- Yes [id number] 1 tablet Univers ne 125 mcg 2-09 by mouth ity o f tablet 00:00: every [place] day Medical (alternati Branch ng with 137mcg dose) levothyroxi 2020- Yes [id number] 1 tablet Univers ne 137 mcg 2-09 by mouth ity o f tablet 00:00: every [place] day Medical (alternati Branch ng with 125mcg dose) levothyroxi 2020- Yes [id number] 1 tablet Univers ne 125 mcg 2-09 by mouth ity o f tablet 00:00: every [place] day Medical (alternati Branch ng with 137mcg dose) levothyroxi 2020- Yes [id number] 1 tablet Univers ne 137 mcg 2-09 by mouth ity o f tablet 00:00: every [place] day Medical (alternati Branch ng with 125mcg dose) levothyroxi 2020- Yes [id number] 1 tablet Univers ne 125 mcg 2-09 by mouth ity o f tablet 00:00: every other day Medical (alternati Branch ng with 137mcg dose) levothyroxi 2020- Yes [id number] 1 tablet Univers ne 137 mcg 2-09 by mouth ity o f tablet 00:00: every [place] other day Medical (alternati Branch ng with 125mcg dose) levothyroxi 2020- Yes [id number] 1 tablet Univers ne 125 mcg 2-09 by mouth ity o f tablet 00:00: every [place] other day Medical (alternati Branch ng with 137mcg dose) levothyroxi 2020- Yes [id number] 1 tablet Univers ne 137 mcg 2-09 by mouth ity o f tablet 00:00: every [place] other day Medical (alternati Branch ng with 125mcg dose) levothyroxi 2020- Yes [id number] 1 tablet Univers ne 125 mcg 2-09 by mouth ity o f tablet 00:00: every [place] other day Medical (alternati Branch ng with 137mcg dose) levothyroxi 2020- Yes [id number] 1 tablet Univers ne 125 mcg 2-09 by mouth ity o f tablet 00:00: every [place] other day Medical (alternati Branch ng with 137mcg dose) levothyroxi 2020- Yes [id number] 1 tablet Univers ne 125 mcg 2-09 by mouth ity o f tablet 00:00: every [place] other day Medical (alternati Branch ng with 137mcg dose) levothyroxi 2020- Yes [id number] 1 tablet Univers ne 125 mcg 2-09 by mouth ity o f tablet 00:00: every [place] other day Medical (alternati Branch ng with 137mcg dose) levothyroxi 2020- Yes [id number] 1 tablet Univers ne 125 mcg 2-09 by mouth ity o f tablet 00:00: every [place] other day Medical (alternati Branch ng with 137mcg dose) levothyroxi 2020- Yes [id number] 1 tablet Univers ne 125 mcg 2-09 by mouth ity o f tablet 00:00: every [place] other day Medical (alternati Branch ng with 137mcg dose) levothyroxi 2020- 202- No [id number] 1 tablet Univers ne 125 mcg 2-09 09-24 by mouth ity of tablet 00:00: 00:00 every [place] 00 :00 other day Medical (alternati Branch ng with 137mcg dose) levothyroxi 2019-04- No [id number] 1 tablet Univers ne 137 mcg 2-09 05-25 by mouth ity of tablet 00:00: 00:00 every [place] 00 :00 other day Medical (alternati Branch ng with 125mcg dose) levothyroxi 2019-04 Yes 125ug Take 125 U nivers ne 125 mcg 2-07 mcg by ity of tablet 15:31: mouth [place] 15 every Medical other day. Branch nicotine 21 2019-04 Yes 1{patch Apply 1 [facility] mg/24 hr 2-07 } Patch to ity of patch 15:31: area(s) [place] 15 every 24 Medical (twenty-fo Branch ur) hours. levothyroxi 2019-04 Yes 125ug Take 125 U nivers ne 125 mcg 2-07 mcg by ity of tablet 15:31: mouth [place] 15 every Medical other day. Branch nicotine 21 2019-04 Yes 1{patch Apply 1 [facility] mg/24 hr 2-07 } Patch to ity of patch 15:31: area(s) [place] 15 every 24 Medical (twenty-fo Branch ur) hours. nicotine 21 2019-04 Yes 1{patch Apply 1 [facility] mg/24 hr 2-07 } Patch to ity of patch 15:31: area(s) [place] 15 every 24 Medical (twenty-fo Branch ur) hours. nicotine 21 2019-04 Yes 1{patch Apply 1 [facility] mg/24 hr 2-07 } Patch to ity of patch 15:31: area(s) [place] 15 every 24 Medical (twenty-fo Branch ur) hours. nicotine 21 2019-04 Yes 1{patch Apply 1 [facility] mg/24 hr 2-07 } Patch to ity of patch 15:31: area(s) [place] 15 every 24 Medical (twenty-fo Branch ur) hours. nicotine 21 2019-04 Yes 1{patch Apply 1 [facility] mg/24 hr 2-07 } Patch to ity of patch 15:31: area(s) [place] 15 every 24 Medical (twenty-fo Branch ur) hours. nicotine 21 2019-04 Yes 1{patch Apply 1 [facility] mg/24 hr 2-07 } Patch to ity of patch 15:31: area(s) [place] 15 every 24 Medical (twenty-fo Branch ur) hours. nicotine 21 2019-04 Yes 1{patch Apply 1 [facility] mg/24 hr 2-07 } Patch to ity of patch 15:31: area(s) [place] 15 every 24 Medical (twenty-fo Branch ur) hours. nicotine 21 2019-04 Yes 1{patch Apply 1 [facility] mg/24 hr 2-07 } Patch to ity of patch 15:31: area(s) [place] 15 every 24 Medical (twenty-fo Branch ur) hours. nicotine 2019-04 Yes 1{patch Apply 1 [facility] mg/24 hr 2-07 } Patch to ity of patch 15:31: area(s) [place] 15 every 24 Medical (twenty-fo Branch ur) hours. nicotine 2019-04 Yes 1{patch Apply 1 [facility] mg/24 hr 2-07 } Patch to ity of patch 15:31: area(s) [place] 15 every 24 Medical (twenty-fo Branch ur) hours. COLCRYS 0.6 2019-04 Yes [id number] .6mg Take 1 Univers mg tablet 2-07 tablet by ity o f 00:00: mouth [place] 00 daily. Medical Branch COLCRYS 0.6 2019-04 Yes [id number] .6mg Take 1 Univers mg tablet 2-07 tablet by ity o f 00:00: mouth [place] 00 daily. Medical Branch COLCRYS 0.6 2019-04 Yes [id number] .6mg Take 1 Univers mg tablet 2-07 tablet by ity o f 00:00: mouth [place] 00 daily. Medical Branch COLCRYS 0.6 2019-04 Yes [id number] .6mg Take 1 Univers mg tablet 2-07 tablet by ity o f 00:00: mouth [place] 00 daily. Medical Branch COLCRYS 0.6 2019-04 Yes [id number] .6mg Take 1 [facility] mg tablet 2-07 tablet by ity o f 00:00: mouth [place] 00 daily. Medical Branch COLCRYS 0.6 2019-04 Yes [id number] .6mg Take 1 [facility] mg tablet 2-07 tablet by ity o f 00:00: mouth [place] 00 daily. Medical Branch COLCRYS 0.6 2019-04 Yes [id number] .6mg Take 1 [facility] mg tablet 2-07 tablet by ity o f 00:00: mouth [place] 00 daily. Medical Branch COLCRYS 0.6 2019-04 Yes [id number] .6mg Take 1 [facility] mg tablet 2-07 tablet by ity o f 00:00: mouth [place] 00 daily. Medical Branch COLCRYS 0.6 2019-1 Yes [id number] .6mg Take 1 [facility] mg tablet 2-07 tablet by ity o f 00:00: mouth [place] 00 daily. Medical Branch COLCRYS 0.6 2019-1 Yes [id number] .6mg Take 1 [facility] mg tablet 2-07 tablet by ity o f 00:00: mouth [place] 00 daily. Medical Branch COLCRYS 0.6 2019- Yes [id number] .6mg Take 1 [facility] mg tablet 2-07 tablet by ity o f 00:00: mouth [place] 00 daily. Medical Branch COLCRYS 0.6 2019- Yes [id number] .6mg Take 1 [facility] mg tablet 2-07 tablet by ity o f 00:00: mouth [place] 00 daily. Medical Branch COLCRYS 0.6 2019- Yes [id number] .6mg Take 1 Univers mg tablet 2-07 tablet by ity o f 00:00: mouth [place] 00 daily. Medical Branch COLCRYS 0.6 2019- Yes [id number] .6mg Take 1 Univers mg tablet 2-07 tablet by ity o f 00:00: mouth [place] 00 daily. Medical Branch COLCRYS 0.6 2019- Yes [id number] .6mg Take 1 [facility] mg tablet 2-07 tablet by ity o f 00:00: mouth [place] 00 daily. Medical Branch COLCRYS 0.6 2019- Yes [id number] .6mg Take 1 [facility] mg tablet 2-07 tablet by ity o f 00:00: mouth [place] 00 daily. Medical Branch COLCRYS 0.6 2019-1 Yes [id number] .6mg Take 1 [facility] mg tablet 2-07 tablet by ity o f 00:00: mouth [place] 00 daily. Medical Branch COLCRYS 0.6 2019-1 Yes [id number] .6mg Take 1 [facility] mg tablet 2-07 tablet by ity o f 00:00: mouth [place] 00 daily. Medical Branch COLCRYS 0.6 2019- Yes [id number] .6mg Take 1 [facility] mg tablet 2-07 tablet by ity o f 00:00: mouth [place] 00 daily. Medical Branch COLCRYS 0.6 2019- Yes [id number] .6mg Take 1 [facility] mg tablet 2-07 tablet by ity o f 00:00: mouth [place] 00 daily. Medical Branch COLCRYS 0.6 2020-1 Yes [id number] .6mg Take 1 [facility] mg tablet 2-07 tablet by ity o f 00:00: mouth [place] 00 daily. Medical Branch COLCRYS 0.6 2020-1 Yes [id number] .6mg Take 1 [facility] mg tablet 2-07 tablet by ity o f 00:00: mouth [place] 00 daily. Medical Branch COLCRYS 0.6 2019-1 Yes [id number] .6mg Take 1 [facility] mg tablet 2-07 tablet by ity o f 00:00: mouth [place] 00 daily. Medical Branch COLCRYS 0.6 2019-1 Yes [id number] .6mg Take 1 [facility] mg tablet 2-07 tablet by ity o f 00:00: mouth [place] 00 daily. Medical Branch COLCRYS 0.6 2019-1 Yes [id number] .6mg Take 1 [facility] mg tablet 2-07 tablet by ity o f 00:00: mouth [place] 00 daily. Medical Branch COLCRYS 0.6 2019-1 Yes [id number] .6mg Take 1 [facility] mg tablet 2-07 tablet by ity o f 00:00: mouth [place] 00 daily. Medical Branch COLCRYS 0.6 2019-1 Yes [id number] .6mg Take 1 [facility] mg tablet 2-07 tablet by ity o f 00:00: mouth [place] 00 daily. Medical Branch COLCRYS 0.6 2019-1 Yes [id number] .6mg Take 1 [facility] mg tablet 2-07 tablet by ity o f 00:00: mouth [place] 00 daily. Medical Branch COLCRYS 0.6 2019-1 Yes [id number] .6mg Take 1 [facility] mg tablet 2-07 tablet by ity o f 00:00: mouth [place] 00 daily. Medical Branch COLCRYS 0.6 2020-1 Yes [id number] .6mg Take 1 [facility] mg tablet 2-07 tablet by ity o f 00:00: mouth [place] 00 daily. Medical Branch COLCRYS 0.6 2019-1 Yes [id number] .6mg Take 1 [facility] mg tablet 2-07 tablet by ity o f 00:00: mouth [place] 00 daily. Medical Branch COLCRYS 0.6 2019-1 Yes [id number] .6mg Take 1 [facility] mg tablet 2-07 tablet by ity o f 00:00: mouth [place] 00 daily. Medical Branch COLCRYS 0.6 2019-1 Yes [id number] .6mg Take 1 [facility] mg tablet 2-07 tablet by ity o f 00:00: mouth [place] 00 daily. Medical Branch COLCRYS 0.6 2019-1 Yes [id number] .6mg Take 1 [facility] mg tablet 2-07 tablet by ity o f 00:00: mouth [place] 00 daily. Medical Branch COLCRYS 0.6 2019-1 Yes [id number] .6mg Take 1 [facility] mg tablet 2-07 tablet by ity o f 00:00: mouth [place] 00 daily. Medical Branch COLCRYS 0.6 2019-1 Yes [id number] .6mg Take 1 [facility] mg tablet 2-07 tablet by ity o f 00:00: mouth [place] 00 daily. Medical Branch COLCRYS 0.6 2019-1 Yes [id number] .6mg Take 1 [facility] mg tablet 2-07 tablet by ity o f 00:00: mouth [place] 00 daily. Medical Branch COLCRYS 0.6 2019-1 Yes [id number] .6mg Take 1 [facility] mg tablet 2-07 tablet by ity o f 00:00: mouth [place] 00 daily. Medical Branch COLCRYS 0.6 2019-1 Yes [id number] .6mg Take 1 [facility] mg tablet 2-07 tablet by ity o f 00:00: mouth [place] 00 daily. Medical Branch COLCRYS 0.6 2019-1 Yes [id number] .6mg Take 1 Univers mg tablet 2-07 tablet by ity o f 00:00: mouth [place] 00 daily. Medical Branch COLCRYS 0.6 2019-1 Yes [id number] .6mg Take 1 Univers mg tablet 2-07 tablet by ity o f 00:00: mouth [place] 00 daily. Medical Branch COLCRYS 0.6 2020-1 Yes [id number] .6mg Take 1 [facility] mg tablet 2-07 tablet by ity o f 00:00: mouth [place] 00 daily. Medical Branch COLCRYS 0.6 2019-1 Yes [id number] .6mg Take 1 [facility] mg tablet 2-07 tablet by ity o f 00:00: mouth [place] 00 daily. Medical Branch COLCRYS 0.6 2019-1 Yes [id number] .6mg Take 1 [facility] mg tablet 2-07 tablet by ity o f 00:00: mouth [place] 00 daily. Medical Branch COLCRYS 0.6 2019-1 Yes [id number] .6mg Take 1 [facility] mg tablet 2-07 tablet by ity o f 00:00: mouth [place] 00 daily. Medical Branch COLCRYS 0.6 2019-1 Yes [id number] .6mg Take 1 [facility] mg tablet 2-07 tablet by ity o f 00:00: mouth [place] 00 daily. Medical Branch COLCRYS 0.6 2019-1 Yes [id number] .6mg Take 1 [facility] mg tablet 2-07 tablet by ity o f 00:00: mouth [place] 00 daily. Medical Branch COLCRYS 0.6 2019-1 Yes [id number] .6mg Take 1 Univers mg tablet 2-07 tablet by ity o f 00:00: mouth [place] 00 daily. Medical Branch COLCRYS 0.6 2019-1 Yes [id number] .6mg Take 1 Univers mg tablet 2-07 tablet by ity o f 00:00: mouth [place] 00 daily. Medical Branch COLCRYS 0.6 2019- Yes [id number] .6mg Take 1 Univers mg tablet 2-07 tablet by ity o f 00:00: mouth [place] 00 daily. Medical Branch COLCRYS 0.6 2019-1 Yes [id number] .6mg Take 1 [facility] mg tablet 2-07 tablet by ity o f 00:00: mouth [place] 00 daily. Medical Branch COLCRYS 0.6 2019-1 Yes [id number] .6mg Take 1 [facility] mg tablet 2-07 tablet by ity o f 00:00: mouth [place] 00 daily. Medical Branch COLCRYS 0.6 2019- Yes [id number] .6mg Take 1 [facility] mg tablet 2-07 tablet by ity o f 00:00: mouth [place] 00 daily. Medical Branch COLCRYS 0.6 2019-1 Yes [id number] .6mg Take 1 [facility] mg tablet 2-07 tablet by ity o f 00:00: mouth [place] 00 daily. Medical Branch COLCRYS 0.6 2019-1 Yes [id number] .6mg Take 1 [facility] mg tablet 2-07 tablet by ity o f 00:00: mouth [place] 00 daily. Medical Branch COLCRYS 0.6 2019-04- No [id number] .6mg Take 1 Univers mg tablet 2- 10-30 tablet by ity of 00:00: 00:00 mouth [place] 00 :00 daily. Medical Branch colchicine 2019-04- No [id number] .6mg Take 1 Univers 0.6 mg 1-18 01-18 tablet by ity of tablet 00:00: 05:59 mouth [place] 00 :00 daily for Medical 60 days. Branch colchicine 2019-04- No [id number] .6mg Take 1 Univers 0.6 mg 1-18 -18 tablet by ity of tablet 00:00: 05:59 mouth [place] 00 :00 daily for Medical 60 days. [place] colchicine 2019-04- No [id number] .6mg Take 1 [facility] 0.6 mg 1-18 01-18 tablet by ity of tablet 00:00: 05:59 mouth [place] 00 :00 daily for Medical 60 days. [place] colchicine 2019-04 No [id number] .6mg Take 1 [facility] 0.6 mg 1-18 12-07 tablet by ity of tablet 00:00: 00:00 mouth [place] 00 :00 daily for Medical 60 days. [place] colchicine 2019-04 No [id number] .6mg Take 1 [facility] 0.6 mg 1-18 12-07 tablet by ity of tablet 00:00: 00:00 mouth [place] 00 :00 daily for Medical 60 days. [place] colchicine 2019-04 No [id number] .6mg Take 1 [facility] 0.6 mg 1-18 12-07 tablet by ity of tablet 00:00: 00:00 mouth [place] 00 :00 daily for Medical 60 days. [place] colchicine 2019-04 No [id number] .6mg Take 1 [facility] 0.6 mg 1-18 12-07 tablet by ity of tablet 00:00: 00:00 mouth [place] 00 :00 daily for Medical 60 days. Branch levothyroxi 2019-04 Yes 125ug Take 125 U nivers ne 125 mcg 1-17 mcg by ity of tablet 23:23: mouth [place] 18 every Medical other day. Branch nicotine 21 2019-04 Yes 1{patch Apply 1 [facility] mg/24 hr 1-17 } Patch to ity of patch 23:23: area(s) [place] 18 every 24 Medical (twenty-fo Branch ur) hours. levothyroxi 2019-04 Yes 125ug Take 125 U nivers ne 125 mcg 1-17 mcg by ity of tablet 23:23: mouth [place] 18 every Medical other day. Branch nicotine 21 2019-04 Yes 1{patch Apply 1 [facility] mg/24 hr 1-17 } Patch to ity of patch 23:23: area(s) [place] 18 every 24 Medical (twenty-fo Branch ur) hours. levothyroxi 2019-04 Yes 125ug Take 125 U nivers ne 125 mcg 1-17 mcg by ity of tablet 23:23: mouth [place] 18 every Medical other day. Branch nicotine 2019-04 Yes 1{patch Apply 1 [facility] mg/24 hr 1-17 } Patch to ity of patch 23:23: area(s) [place] 18 every 24 Medical (twenty-fo Branch ur) hours. ibuprofen 2019-04 No 400mg 400 mg, Uni vers (IBU) -17 02-17 Oral, BID ity of tablet 400 14:00: 13:59 MEALS, 4 [place] mg 00 :00 doses, Medical First dose Branch (after last modificati on) on Sat02/16/20 at 0800, Last dose on Sat02/17/20 at 1700, Routine morpHINE 2019-04 Yes 2mg 2 mg, Slow Uni vers injection 2 1-17 IV Push, ity of mg 04:05: Q4HPRN, [place] [address] Starting Medical Mon Branch 02/15/20 at 2205, Until Discontinu ed, Routine, If norco ineffectiv e cholecalcif 2019-04 Yes [id number] 1000U Take 1 [facility] ester, 1-17 tablet by ity of vitamin D3, 00:00: mouth [place] 25 mcg 00 daily. Medical (1,000 Branch unit) tablet HYDROcodone 2019-04 Yes [id number] 1{tbl} Take 1 [facility] maddie -acetaminop 1-17 tablet by ity of hen (NORCO) 00:00: mouth 2 [facility] as 10-325 mg 00 (two) Medical tablet times Branch daily as needed for Pain (scale 7-10). Indication s: acute pain, chronic abdominal pain lipase-prot 2019-04 Yes [id number] 1{capsu Take 1 [facility] ease-amylas 1-17 le} capsule by it y of e 00:00: mouth 3 [place] 12,000-38,0 00 (three) Medic al 00 -60,000 times Branch unit daily with capsule meals. cholecalcif 2020- Yes [id number] 1000U Take 1 [facility] ester, 1-17 tablet by ity of vitamin D3, 00:00: mouth [place] 25 mcg 00 daily. Medical (1,000 Branch unit) tablet HYDROcodone 2020- Yes [id number] 1{tbl} Take 1 [facility] maddie -acetaminop 1-17 tablet by ity of hen (NORCO) 00:00: mouth 2 [place] 10-325 mg 00 (two) Medical tablet times Branch daily as needed for Pain (scale 7-10). Indication s: acute pain, chronic abdominal pain lipase-prot 2020- Yes [id number] 1{capsu Take 1 [facility] ease-amylas 1-17 le} capsule by it y of e 00:00: mouth 3 [place] 12,000-38,0 00 (three) Medic al 00 -60,000 times Branch unit daily with capsule meals. cholecalcif 2019-04 Yes [id number] 1000U Take 1 [facility] ester, 1-17 tablet by ity of vitamin D3, 00:00: mouth [place] 25 mcg 00 daily. Medical (1,000 Branch unit) tablet HYDROcodone 2019- Yes [id number] 1{tbl} Take 1 Un maddie -acetaminop 1-17 tablet by ity of hen (NORCO) 00:00: mouth 2 [place] 10-325 mg 00 (two) Medical tablet times Branch daily as needed for Pain (scale 7-10). Indication s: acute pain, chronic abdominal pain lipase-prot 2019- Yes [id number] 1{capsu Take 1 [facility] ease-amylas 1-17 le} capsule by it y of e 00:00: mouth 3 [place] 12,000-38,0 00 (three) Medic al 00 -60,000 times Branch unit daily with capsule meals. cholecalcif 2020- Yes [id number] 1000U Take 1 [facility] ester, 1-17 tablet by ity of vitamin D3, 00:00: mouth [place] 25 mcg 00 daily. Medical (1,000 Branch unit) tablet HYDROcodone 2020- Yes [id number] 1{tbl} Take 1 [facility] maddie -acetaminop 1-17 tablet by ity of hen (NORCO) 00:00: mouth 2 [place] 10-325 mg 00 (two) Medical tablet times Branch daily as needed for Pain (scale 7-10). Indication s: acute pain, chronic abdominal pain lipase-prot 2020- Yes [id number] 1{capsu Take 1 [facility] ease-amylas 1-17 le} capsule by it y of e 00:00: mouth 3 [place] 12,000-38,0 00 (three) Medic al 00 -60,000 times Branch unit daily with capsule meals. cholecalcif 2020 Yes [id number] 1000U Take 1 [facility] ester, 1-17 tablet by ity of vitamin D3, 00:00: mouth [place] 25 mcg 00 daily. Medical (1,000 Branch unit) tablet HYDROcodone 2020- Yes 4647 1{tbl} Take 1 [facility] maddie -acetaminop 1-17 tablet by ity of hen (NORCO) 00:00: mouth 2 [place] 10-325 mg 00 (two) Medical tablet times Branch daily as needed for Pain (scale 7-10). Indication s: acute pain, chronic abdominal pain lipase-prot 2019- Yes [id number] 1{capsu Take 1 [facility] ease-amylas 1-17 le} capsule by it y of e 00:00: mouth 3 [place] 12,000-38,0 00 (three) Medic al 00 -60,000 times Branch unit daily with capsule meals. cholecalcif 2019-04 Yes [id number] 1000U Take 1 [facility] ester, 1-17 tablet by ity of vitamin D3, 00:00: mouth [place] 25 mcg 00 daily. Medical (1,000 Branch unit) tablet HYDROcodone 2020- Yes [id number] 1{tbl} Take 1 [facility] maddie -acetaminop 1-17 tablet by ity of hen (NORCO) 00:00: mouth 2 [place] 10-325 mg 00 (two) Medical tablet times Branch daily as needed for Pain (scale 7-10). Indication s: acute pain, chronic abdominal pain lipase-prot 2020- Yes [id number] 1{capsu Take 1 [facility] ease-amylas 1-17 le} capsule by it y of e 00:00: mouth 3 [place] 12,000-38,0 00 (three) Medic al 00 -60,000 times Branch unit daily with capsule meals. cholecalcif 2019- Yes [id number] 1000U Take 1 [facility] ester, 1-17 tablet by ity of vitamin D3, 00:00: mouth [place] 25 mcg 00 daily. Medical (1,000 Branch unit) tablet HYDROcodone 2020- Yes [id number] 1{tbl} Take 1 Un maddie -acetaminop 1-17 tablet by ity of hen (NORCO) 00:00: mouth 2 [place] 10-325 mg 00 (two) Medical tablet times Branch daily as needed for Pain (scale 7-10). Indication s: acute pain, chronic abdominal pain lipase-prot 2020- Yes [id number] 1{capsu Take 1 [facility] ease-amylas 1-17 le} capsule by it y of e 00:00: mouth 3 [place] 12,000-38,0 00 (three) Medic al 00 -60,000 times Branch unit daily with capsule meals. cholecalcif 2019- Yes [id number] 1000U Take 1 [facility] ester, 1-17 tablet by ity of vitamin D3, 00:00: mouth [place] 25 mcg 00 daily. Medical (1,000 Branch unit) tablet HYDROcodone 2020- Yes [id number] 1{tbl} Take 1 [facility] maddie -acetaminop 1-17 tablet by ity of hen ([employer]iJuke[employer]) 00:00: mouth 2 [place] 10-325 mg 00 (two) Medical tablet times Branch daily as needed for Pain (scale 7-10). Indication s: acute pain, chronic abdominal pain lipase-prot 2019- Yes [id number] 1{capsu Take 1 [facility] ease-amylas 1-17 le} capsule by it y of e 00:00: mouth 3 [place] 12,000-38,0 00 (three) Medic al 00 -60,000 times Branch unit daily with capsule meals. cholecalcif 2019- Yes [id number] 1000U Take 1 [facility] ester, 1-17 tablet by ity of vitamin D3, 00:00: mouth [place] 25 mcg 00 daily. Medical (1,000 Branch unit) tablet HYDROcodone 2020- Yes [id number] 1{tbl} Take 1 [facility] maddie -acetaminop 1-17 tablet by ity of hen (NORCO) 00:00: mouth 2 [place] 10-325 mg 00 (two) Medical tablet times Branch daily as needed for Pain (scale 7-10). Indication s: acute pain, chronic abdominal pain lipase-prot 2020- Yes [id number] 1{capsu Take 1 [facility] ease-amylas 1-17 le} capsule by it y of e 00:00: mouth 3 [place] 12,000-38,0 00 (three) Medic al 00 -60,000 times Branch unit daily with capsule meals. cholecalcif 2020- Yes [id number] 1000U Take 1 [facility] ester, 1-17 tablet by ity of vitamin D3, 00:00: mouth [place] 25 mcg 00 daily. Medical (1,000 Branch unit) tablet HYDROcodone 2020-1 Yes [id number] 1{tbl} Take 1 [facility] maddie -acetaminop 1-17 tablet by ity of hen (NORCO) 00:00: mouth 2 [place] 10-325 mg 00 (two) Medical tablet times Branch daily as needed for Pain (scale 7-10). Indication s: acute pain, chronic abdominal pain lipase-prot 2020- Yes [id number] 1{capsu Take 1 [facility] ease-amylas 1-17 le} capsule by it y of e 00:00: mouth 3 [place] 12,000-38,0 00 (three) Medic al 00 -60,000 times Branch unit daily with capsule meals. cholecalcif 2020- Yes [id number] 1000U Take 1 [facility] ester, 1-17 tablet by ity of vitamin D3, 00:00: mouth [place] 25 mcg 00 daily. Medical (1,000 Branch unit) tablet HYDROcodone 2020-1 Yes [id number] 1{tbl} Take 1 [facility] maddie -acetaminop 1-17 tablet by ity of hen (NORCO) 00:00: mouth 2 [place] 10-325 mg 00 (two) Medical tablet times Branch daily as needed for Pain (scale 7-10). Indication s: acute pain, chronic abdominal pain lipase-prot 2020-1 Yes [id number] 1{capsu Take 1 [facility] ease-amylas 1-17 le} capsule by it y of e 00:00: mouth 3 [place] 12,000-38,0 00 (three) Medic al 00 -60,000 times Branch unit daily with capsule meals. cholecalcif 2020- Yes [id number] 1000U Take 1 [facility] ester, 1-17 tablet by ity of vitamin D3, 00:00: mouth [place] 25 mcg 00 daily. Medical (1,000 Branch unit) tablet HYDROcodone 2020-1 Yes [id number] 1{tbl} Take 1 [facility] maddie -acetaminop 1-17 tablet by ity of hen (NORCO) 00:00: mouth 2 [place] 10-325 mg 00 (two) Medical tablet times Branch daily as needed for Pain (scale 7-10). Indication s: acute pain, chronic abdominal pain lipase-prot 2020- Yes [id number] 1{capsu Take 1 [facility] ease-amylas 1-17 le} capsule by it y of e 00:00: mouth 3 [place] 12,000-38,0 00 (three) Medic al 00 -60,000 times Branch unit daily with capsule meals. cholecalcif 2020- Yes [id number] 1000U Take 1 [facility] ester, 1-17 tablet by ity of vitamin D3, 00:00: mouth [place] 25 mcg 00 daily. Medical (1,000 Branch unit) tablet HYDROcodone 2020- Yes [id number] 1{tbl} Take 1 [facility] maddie -acetaminop 1-17 tablet by ity of hen (NORCO) 00:00: mouth 2 [place] 10-325 mg 00 (two) Medical tablet times Branch daily as needed for Pain (scale 7-10). Indication s: acute pain, chronic abdominal pain lipase-prot 2019- Yes [id number] 1{capsu Take 1 [facility] ease-amylas 1-17 le} capsule by it y of e 00:00: mouth 3 [place] 12,000-38,0 00 (three) Medic al 00 -60,000 times Branch unit daily with capsule meals. cholecalcif 2020- Yes [id number] 1000U Take 1 [facility] ester, 1-17 tablet by ity of vitamin D3, 00:00: mouth [place] 25 mcg 00 daily. Medical (1,000 Branch unit) tablet HYDROcodone 2020- Yes [id number] 1{tbl} Take 1 [facility] maddie -acetaminop 1-17 tablet by ity of hen (NORCO) 00:00: mouth 2 [place] 10-325 mg 00 (two) Medical tablet times Branch daily as needed for Pain (scale 7-10). Indication s: acute pain, chronic abdominal pain lipase-prot 2020- Yes [id number] 1{capsu Take 1 [facility] ease-amylas 1-17 le} capsule by it y of e 00:00: mouth 3 [place] 12,000-38,0 00 (three) Medic al 00 -60,000 times Branch unit daily with capsule meals. cholecalcif 2020- Yes [id number] 1000U Take 1 [facility] ester, 1-17 tablet by ity of vitamin D3, 00:00: mouth [place] 25 mcg 00 daily. Medical (1,000 Branch unit) tablet HYDROcodone 2020-1 Yes [id number] 1{tbl} Take 1 [facility] maddie -acetaminop 1-17 tablet by ity of hen (NORCO) 00:00: mouth 2 [place] 10-325 mg 00 (two) Medical tablet times Branch daily as needed for Pain (scale 7-10). Indication s: acute pain, chronic abdominal pain lipase-prot 2020- Yes [id number] 1{capsu Take 1 [facility] ease-amylas 1-17 le} capsule by it y of e 00:00: mouth 3 [place] 12,000-38,0 00 (three) Medic al 00 -60,000 times Branch unit daily with capsule meals. cholecalcif 2020- Yes [id number] 1000U Take 1 [facility] ester, 1-17 tablet by ity of vitamin D3, 00:00: mouth [place] 25 mcg 00 daily. Medical (1,000 Branch unit) tablet HYDROcodone 2020- Yes [id number] 1{tbl} Take 1 [facility] maddie -acetaminop 1-17 tablet by ity of hen (NORCO) 00:00: mouth 2 [place] 10-325 mg 00 (two) Medical tablet times Branch daily as needed for Pain (scale 7-10). Indication s: acute pain, chronic abdominal pain lipase-prot 2020- Yes [id number] 1{capsu Take 1 [facility] ease-amylas 1-17 le} capsule by it y of e 00:00: mouth 3 [place] 12,000-38,0 00 (three) Medic al 00 -60,000 times Branch unit daily with capsule meals. cholecalcif 2020- Yes [id number] 1000U Take 1 [facility] ester, 1-17 tablet by ity of vitamin D3, 00:00: mouth [place] 25 mcg 00 daily. Medical (1,000 Branch unit) tablet lipase-prot 2020- Yes [id number] 1{capsu Take 1 [facility] ease-amylas 1-17 le} capsule by it y of e 00:00: mouth 3 [place] 12,000-38,0 00 (three) Medic al 00 -60,000 times Branch unit daily with capsule meals. cholecalcif 2020- Yes [id number] 1000U Take 1 [facility] ester, 1-17 tablet by ity of vitamin D3, 00:00: mouth [place] 25 mcg 00 daily. Medical (1,000 Branch unit) tablet lipase-prot 2020-1 Yes [id number] 1{capsu Take 1 [facility] ease-amylas 1-17 le} capsule by it y of e 00:00: mouth 3 [place] 12,000-38,0 00 (three) Medic al 00 -60,000 times Branch unit daily with capsule meals. cholecalcif 2020-1 Yes [id number] 1000U Take 1 [facility] ester, 1-17 tablet by ity of vitamin D3, 00:00: mouth [place] 25 mcg 00 daily. Medical (1,000 Branch unit) tablet cholecalcif 2020-1 Yes [id number] 1000U Take 1 [facility] ester, 1-17 tablet by ity of vitamin D3, 00:00: mouth [place] 25 mcg 00 daily. Medical (1,000 Branch unit) tablet lipase-prot 2020-1 Yes [id number] 1{capsu Take 1 [facility] ease-amylas 1-17 le} capsule by it y of e 00:00: mouth 3 [place] 12,000-38,0 00 (three) Medic al 00 -60,000 times Branch unit daily with capsule meals. cholecalcif 2020-1 Yes [id number] 1000U Take 1 [facility] ester, 1-17 tablet by ity of vitamin D3, 00:00: mouth [place] 25 mcg 00 daily. Medical (1,000 Branch unit) tablet lipase-prot 2020-1 Yes [id number] 1{capsu Take 1 [facility] ease-amylas 1-17 le} capsule by it y of e 00:00: mouth 3 [place] 12,000-38,0 00 (three) Medic al 00 -60,000 times Branch unit daily with capsule meals. cholecalcif 2020-1 Yes [id number] 1000U Take 1 [facility] ester, 1-17 tablet by ity of vitamin D3, 00:00: mouth [place] 25 mcg 00 daily. Medical (1,000 Branch unit) tablet cholecalcif 2020-1 Yes [id number] 1000U Take 1 [facility] ester, 1-17 tablet by ity of vitamin D3, 00:00: mouth [place] 25 mcg 00 daily. Medical (1,000 Branch unit) tablet cholecalcif 2020-1 Yes [id number] 1000U Take 1 [facility] ester, 1-17 tablet by ity of vitamin D3, 00:00: mouth [place] 25 mcg 00 daily. Medical (1,000 Branch unit) tablet cholecalcif 2020-1 Yes [id number] 1000U Take 1 [facility] ester, 1-17 tablet by ity of vitamin D3, 00:00: mouth [place] 25 mcg 00 daily. Medical (1,000 Branch unit) tablet cholecalcif 2020-1 Yes [id number] 1000U Take 1 [facility] ester, 1-17 tablet by ity of vitamin D3, 00:00: mouth [place] 25 mcg 00 daily. Medical (1,000 Branch unit) tablet cholecalcif 2020-1 Yes [id number] 1000U Take 1 [facility] ester, 1-17 tablet by ity of vitamin D3, 00:00: mouth [place] 25 mcg 00 daily. Medical (1,000 Branch unit) tablet cholecalcif 2020-1 Yes [id number] 1000U Take 1 [facility] ester, 1-17 tablet by ity of vitamin D3, 00:00: mouth [place] 25 mcg 00 daily. Medical (1,000 Branch unit) tablet cholecalcif 2020-1 Yes [id number] 1000U Take 1 [facility] ester, 1-17 tablet by ity of vitamin D3, 00:00: mouth [place] 25 mcg 00 daily. Medical (1,000 Branch unit) tablet cholecalcif 2020-1 Yes [id number] 1000U Take 1 [facility] ester, 1-17 tablet by ity of vitamin D3, 00:00: mouth [place] 25 mcg 00 daily. Medical (1,000 Branch unit) tablet cholecalcif 2020-1 Yes [id number] 1000U Take 1 [facility] ester, 1-17 tablet by ity of vitamin D3, 00:00: mouth [place] 25 mcg 00 daily. Medical (1,000 Branch unit) tablet cholecalcif 2020-1 Yes [id number] 1000U Take 1 [facility] ester, 1-17 tablet by ity of vitamin D3, 00:00: mouth [place] 25 mcg 00 daily. Medical (1,000 Branch unit) tablet cholecalcif 2020-1 Yes [id number] 1000U Take 1 [facility] ester, 1-17 tablet by ity of vitamin D3, 00:00: mouth [place] 25 mcg 00 daily. Medical (1,000 Branch unit) tablet cholecalcif 2020-1 Yes [id number] 1000U Take 1 [facility] ester, 1-17 tablet by ity of vitamin D3, 00:00: mouth [place] 25 mcg 00 daily. Medical (1,000 Branch unit) tablet cholecalcif 2020-1 Yes [id number] 1000U Take 1 [facility] ester, 1-17 tablet by ity of vitamin D3, 00:00: mouth [place] 25 mcg 00 daily. Medical (1,000 Branch unit) tablet cholecalcif 2020-1 Yes [id number] 1000U Take 1 [facility] ester, 1-17 tablet by ity of vitamin D3, 00:00: mouth [place] 25 mcg 00 daily. Medical (1,000 Branch unit) tablet cholecalcif 2020-1 Yes [id number] 1000U Take 1 [facility] ester, 1-17 tablet by ity of vitamin D3, 00:00: mouth [place] 25 mcg 00 daily. Medical (1,000 Branch unit) tablet cholecalcif 2020-1 Yes [id number] 1000U Take 1 [facility] ester, 1-17 tablet by ity of vitamin D3, 00:00: mouth [place] 25 mcg 00 daily. Medical (1,000 Branch unit) tablet cholecalcif 2020-1 Yes [id number] 1000U Take 1 [facility] ester, 1-17 tablet by ity of vitamin D3, 00:00: mouth [place] 25 mcg 00 daily. Medical (1,000 Branch unit) tablet cholecalcif 2020-1 Yes [id number] 1000U Take 1 [facility] ester, 1-17 tablet by ity of vitamin D3, 00:00: mouth [place] 25 mcg 00 daily. Medical (1,000 Branch unit) tablet cholecalcif 2020-1 Yes [id number] 1000U Take 1 [facility] ester, 1-17 tablet by ity of vitamin D3, 00:00: mouth [place] 25 mcg 00 daily. Medical (1,000 Branch unit) tablet cholecalcif 2020-1 Yes [id number] 1000U Take 1 [facility] ester, 1-17 tablet by ity of vitamin D3, 00:00: mouth [place] 25 mcg 00 daily. Medical (1,000 Branch unit) tablet cholecalcif 2020-1 Yes [id number] 1000U Take 1 [facility] ester, 1-17 tablet by ity of vitamin D3, 00:00: mouth [place] 25 mcg 00 daily. Medical (1,000 Branch unit) tablet cholecalcif 2020-1 Yes [id number] 1000U Take 1 [facility] ester, 1-17 tablet by ity of vitamin D3, 00:00: mouth [place] 25 mcg 00 daily. Medical (1,000 Branch unit) tablet cholecalcif 2020-1 Yes [id number] 1000U Take 1 [facility] ester, 1-17 tablet by ity of vitamin D3, 00:00: mouth [place] 25 mcg 00 daily. Medical (1,000 Branch unit) tablet cholecalcif 2020-1 Yes [id number] 1000U Take 1 [facility] ester, 1-17 tablet by ity of vitamin D3, 00:00: mouth [place] 25 mcg 00 daily. Medical (1,000 Branch unit) tablet cholecalcif 2020-1 Yes [id number] 1000U Take 1 [facility] ester, 1-17 tablet by ity of vitamin D3, 00:00: mouth [place] 25 mcg 00 daily. Medical (1,000 Branch unit) tablet cholecalcif 2020-1 Yes [id number] 1000U Take 1 [facility] ester, 1-17 tablet by ity of vitamin D3, 00:00: mouth [place] 25 mcg 00 daily. Medical (1,000 Branch unit) tablet cholecalcif 2020-1 Yes [id number] 1000U Take 1 [facility] ester, 1-17 tablet by ity of vitamin D3, 00:00: mouth [place] 25 mcg 00 daily. Medical (1,000 Branch unit) tablet cholecalcif 2020-1 Yes [id number] 1000U Take 1 [facility] ester, 1-17 tablet by ity of vitamin D3, 00:00: mouth [place] 25 mcg 00 daily. Medical (1,000 Branch unit) tablet cholecalcif 2020-1 Yes [id number] 1000U Take 1 [facility] ester, 1-17 tablet by ity of vitamin D3, 00:00: mouth [place] 25 mcg 00 daily. Medical (1,000 Branch unit) tablet cholecalcif 2020-1 Yes [id number] 1000U Take 1 [facility] ester, 1-17 tablet by ity of vitamin D3, 00:00: mouth [place] 25 mcg 00 daily. Medical (1,000 Branch unit) tablet cholecalcif 2020-1 Yes [id number] 1000U Take 1 [facility] ester, 1-17 tablet by ity of vitamin D3, 00:00: mouth [place] 25 mcg 00 daily. Medical (1,000 Branch unit) tablet cholecalcif 2020-1 Yes [id number] 1000U Take 1 [facility] ester, 1-17 tablet by ity of vitamin D3, 00:00: mouth [place] 25 mcg 00 daily. Medical (1,000 Branch unit) tablet cholecalcif 2020-1 Yes [id number] 1000U Take 1 [facility] ester, 1-17 tablet by ity of vitamin D3, 00:00: mouth [place] 25 mcg 00 daily. Medical (1,000 Branch unit) tablet cholecalcif 2020-1 Yes [id number] 1000U Take 1 [facility] ester, 1-17 tablet by ity of vitamin D3, 00:00: mouth [place] 25 mcg 00 daily. Medical (1,000 Branch unit) tablet cholecalcif 2020-1 Yes [id number] 1000U Take 1 [facility] ester, 1-17 tablet by ity of vitamin D3, 00:00: mouth [place] 25 mcg 00 daily. Medical (1,000 Branch unit) tablet cholecalcif 2020-1 Yes [id number] 1000U Take 1 [facility] ester, 1-17 tablet by ity of vitamin D3, 00:00: mouth [place] 25 mcg 00 daily. Medical (1,000 Branch unit) tablet cholecalcif 2020-1 Yes [id number] 1000U Take 1 [facility] ester, 1-17 tablet by ity of vitamin D3, 00:00: mouth [place] 25 mcg 00 daily. Medical (1,000 Branch unit) tablet cholecalcif 2020-1 Yes [id number] 1000U Take 1 [facility] ester, 1-17 tablet by ity of vitamin D3, 00:00: mouth [place] 25 mcg 00 daily. Medical (1,000 Branch unit) tablet cholecalcif 2019-2020- No [id number] 1000U Take 1 [facility] ester, 1-17 10-30 tablet by ity of vitamin D3, 00:00: 00:00 mouth [place] 25 [place]cg 00 :00 daily. Medical (1,000 Branch unit) tablet lipase-prot 2019-04- No [id number] 1{capsu Take 1 [facility] ease-amylas 04-17 06-23 le} capsule by i ty of e 00:00: 00:00 mouth 3 [place] 12,000-38,0 00 :00 (three) Medic al 00 -60,000 times Branch unit daily with capsule meals. HYDROcodone 2019-04- No [id number] 1{tbl} Take 1 U nivers -acetaminop 1-17 05-30 tablet by it y of hen (NORCO) 00:00: 00:00 mouth 2 [place] 10-325 mg 00 :00 (two) Medical tablet times [place] daily as needed for Pain (scale 7-10). Indication s: acute pain, chronic abdominal pain vitamin 2019-04- No [id number] 1000ug Take 1 [facility] B-12 1,000 1-17 -17 tablet by ity of mcg tablet 00:00: 05:59 mouth [place] 00 :00 daily for Medical 60 days. [place] vitamin 2019-04- No [id number] 1000ug Take 1 [facility] B-12 1,000 1-17 -17 tablet by ity of mcg tablet 00:00: 05:59 mouth [place] 00 :00 daily for Medical 60 days. [place] vitamin 2019-04- No [id number] 1000ug Take 1 [facility] B-12 1,000 1-17 -17 tablet by ity of mcg tablet 00:00: 05:59 mouth [place] 00 :00 daily for Medical 60 days. [place] vitamin 2019-04- No [id number] 1000ug Take 1 [facility] B-12 1,000 1-17 -17 tablet by ity of mcg tablet 00:00: 05:59 mouth [place] 00 :00 daily for Medical 60 days. [place] vitamin 2019-04- No [id number] 1000ug Take 1 [facility] B-12 1,000 1-17 -17 tablet by ity of mcg tablet 00:00: 05:59 mouth [place] 00 :00 daily for Medical 60 days. [place] vitamin 2019-04- No [id number] 1000ug Take 1 [facility] B-12 1,000 1-17 -17 tablet by ity of mcg tablet 00:00: 05:59 mouth [place] 00 :00 daily for Medical 60 days. [place] vitamin 2019-04- No [id number] 1000ug Take 1 [facility] B-12 1,000 1-17 -17 tablet by ity of mcg tablet 00:00: 05:59 mouth [place] 00 :00 daily for Medical 60 days. [place] vitamin 2019-04- No [id number] 1000ug Take 1 [facility] B-12 1,000 1-17 -17 tablet by ity of mcg tablet 00:00: 05:59 mouth [place] 00 :00 daily for Medical 60 days. [place] vitamin 2019-04- No [id number] 1000ug Take 1 [facility] B-12 1,000 1-17 01-17 tablet by ity of mcg tablet 00:00: 05:59 mouth [place] 00 :00 daily for Medical 60 days. Branch vitamin 2019-04- No [id number] 1000ug Take 1 [facility] B-12 1,000 1-17 01-17 tablet by ity of mcg tablet 00:00: 05:59 mouth [place] 00 :00 daily for Medical 60 days. Branch vitamin 2019-04- No [id number] 1000ug Take 1 [facility] B-12 1,000 1-17 -17 tablet by ity of mcg tablet 00:00: 05:59 mouth [place] 00 :00 daily for Medical 60 days. Branch amitriptyli 2019-04- No [id number] 25mg Take 1 [facility] ne 25 mg 1-17 12-18 tablet by ity o f tablet 00:00: 05:59 mouth at [place] 00 :00 bedtime Medical for 30 Branch days. amitriptyli 2019-04- No [id number] 25mg Take 1 [facility] ne 25 mg 1-17 12-18 tablet by ity o f tablet 00:00: 05:59 mouth at [place] 00 :00 bedtime Medical for 30 Branch days. amitriptyli 2019-04- No [id number] 25mg Take 1 [facility] ne 25 mg 1-17 12-18 tablet by ity o f tablet 00:00: 05:59 mouth at [place] 00 :00 bedtime Medical for 30 Branch days. amitriptyli 2019-04- No [id number] 25mg Take 1 [facility] ne 25 mg 1-17 12-18 tablet by ity o f tablet 00:00: 05:59 mouth at [place] 00 :00 bedtime Medical for 30 Branch days. amitriptyli 2019-04- No [id number] 25mg Take 1 [facility] ne 25 mg 1-17 12-18 tablet by ity o f tablet 00:00: 05:59 mouth at [place] 00 :00 bedtime Medical for 30 Branch days. amitriptyli 2019-04- No [id number] 25mg Take 1 [facility] ne 25 mg 1-17 12-18 tablet by ity o f tablet 00:00: 05:59 mouth at [place] 00 :00 bedtime Medical for 30 Branch days. amitriptyli 2019-04- No [id number] 25mg Take 1 [facility] ne 25 mg -17 12-18 tablet by ity o f tablet 00:00: 05:59 mouth at [place] 00 :00 bedtime Medical for 30 Branch days. amitriptyli 2019-04- No [id number] 25mg Take 1 [facility] ne 25 mg 1-17 12-18 tablet by ity o f tablet 00:00: 05:59 mouth at [place] 00 :00 bedtime Medical for 30 Branch days. amitriptyli 2019-04- No [id number] 25mg Take 1 [facility] ne 25 mg -17 12-18 tablet by ity o f tablet 00:00: 05:59 mouth at [place] 00 :00 bedtime Medical for 30 Branch days. ibuprofen 2019-04- No 600mg 600 mg, Uni vers (IBU) 04-17 Oral, Q6H, ity of tablet 600 00:00: 12:53 First dose [place] mg 00 :20 on [facility] 02/15/20 Branch at 1800, Until Discontinu ed, Routine lactated 2019-04 Yes 1000mL at 75 Univer s ringers IV 1-16 mL/hr, ity of infusion 22:30: 1,000 [place], [place] 1[place]000 [place] 00 IV Medical Infusion, Branch CONTINUOUS , Starting [facility] 02/15/20 at 1630, Until Discontinu ed, Routine, PACU morpHINE 2019-04- No 2mg 2 mg, Slow Un maddie injection 2 04-16 IV Push, ity of mg 21:38: [facility] [place] [facility] :55 Starting Medical [facility] 02/15/20 at 1538, Until [facility] 02/15/20 at 2202, Routine, Postoperat pelon breakthrou gh pain acetaminoph 2019-04 Yes 500mg 500 mg, Un maddie en 16 Oral, ity of (TYLENOL) 21:37: Q6HPRN, [place] tablet 500 10 Starting Medic al mg [facility] 02/15/20 at 1537, Until Discontinu ed, Routine, Pain (scale 1-3) HYDROcodone 2019-04 Yes 1{tbl} 1 tablet, Univers -acetaminop 16 Oral, ity of hen ([facility] 21:36: Q6HPRN, [place] 5) 5-325 mg 57 Starting Medi julieta tablet 1 Sat Branch tablet 02/15/20 at 1536, Until Discontinu ed, Routine, Pain (scale 4-6) HYDROcodone 2019-04 Yes 1{tbl} 1 tablet, Univers -acetaminop -16 Oral, ity of hen (NORCO) 21:36: Q6HPRN, [place] 10-325 mg 03 Starting Medica l tablet 1 Mon Branch tablet 02/15/20 at 1536, Until Discontinu ed, Routine, Pain (scale 7-10) morpHINE 2019-04 2020- No 4mg 4 mg, Slow [place] injection 4 -15 02-14 IV Push, ity of mg 17:45: 17:44 Q4HPRN, [place] 00 :00 Starting [facility] 02/14/20 at 1145, Until [facility] 02/15/20 at 1144, Routine, Pain (scale 7-10) morpHINE 2019-04- No 4mg 4 mg, Slow Un maddie injection 4 -02-13 IV Push, ity of mg 19:29: 17:41 Q6HPRN, [place] 23 :31 Starting [facility] 02/13/20 at 1329, Until [place] 02/14/20 at 1141, Routine, Pain (scale 7-10) amitriptyli 2019-04 Yes 25mg 25 mg, Univ ers ne (ELAVIL) 1-14 Oral, QHS, it y of tablet 25 03:00: First dose [place] mg 00 on Sat Medical 02/12/20 Branch at 2100, Until Discontinu ed, Routine diphenhydrA 2019-04 Yes 25mg 25 mg, Univ ers MINE 1-13 Slow IV ity of (BENADRYL) 17:25: Push, [place] injection 43 Q6HPRN, Medical 25 mg Starting Branch 02/12/20 at 1125, Until Discontinu ed, Routine, Itching HYDROcodone 2019-04 2020- No 1{tbl} 1 tablet, Univers -acetaminop -11 02-16 Oral, ity of hen (NORCO) 12:11: 21:36 Q6HPRN, [place] 10-325 mg 49 :41 Starting Medica l tablet 1 Sat Branch tablet 02/12/20 at 0611, Until 02/15/20 at 1536, Routine, Pain (scale 4-6) diphenhydrA 2019-04 2020- No 25mg 25 mg, Uni vers MINE 04-12 Oral, ity of (BENADRYL) 23:52: 17:25 Q6HPRN, [place] tablet 25 07 :51 Starting Medica l mg [facility] 02/11/20 at 1752, Until 02/12/20 at 1125, Routine, Itching levalbutero 2019-04 Yes .63mg 0.63 mg, U nivers l (XOPENEX) 04-12 Inhalation it y of nebulizer 22:00: , QID, [place] solution 00 First dose Medic al 0.63 mg on [facility] 02/11/20 at 1600, Until Discontinu ed, Routine
Approved by: ADC PROVIDER diphenhydrA 2019-04 2020- No 25mg 25 mg, Uni vers MINE 04-12 Slow IV ity of (BENADRYL) 18:30: 17:26 Push, [place] injection 00 :00 ONCE, 1 Medical 25 mg dose, [facility] 02/11/20 at 1230, Routine morpHINE 2019-04- No 4mg 4 mg, Slow Un maddie injection 4 04-1214 IV Push, ity of mg 16:54: 16:53 Q4HPN, [place] 36 :36 Starting Medical [facility] 02/11/20 at 1054, Until 02/13/20 at 1053, Routine, Pain (scale 7-10) pantoprazol 2019-04 Yes 40mg 40 mg, Univ ers e 04-12 Oral, ity of (PROTONIX) 15:00: DAILY, [place] EC tablet 00 First dose Medi julieta 40 mg on [facility] 02/11/20 at 0900, Until Discontinu ed, Routine morpHINE 2019-04 2020- No 4mg 4 mg, Slow Un maddie injection 4 04-12 IV Push, ity of mg 06:09: 12:21 Q4HPRN, 2 [place] 31 :00 doses, Medical Starting Branch [facility] 02/11/20 at 0009, Until Discontinu ed, Routine, Pain (scale 7-10) cyanocobala 2019-04 Yes 1000ug 1,000 mcg, Univers min 1-11 Subcutaneo ity of (VITAMIN 18:45: us, Q24H, [place] B12) 00 First dose Medical injection on Sat Branch 1,000 mcg 02/10/20 at 1245, Until Discontinu ed, Routine colchicine 2020- Yes .6mg 0.6 mg, Univ ers (COLCRYS) 1-11 Oral, ity of tablet 0.6 18:00: DAILY, [place] mg 00 First dose Medical on Sat Branch 02/10/20 at 1200, Until Discontinu ed, Routine dicyclomine 2020-1 Yes 10mg 10 mg, Univ ers (BENTYL) 1-11 Oral, QID, ity o f capsule 10 18:00: First dose [place] mg 00 on Sat Medical 02/10/20 Branch at 1200, Until Discontinu ed, Routine sucralfate 2020-1 Yes 1g 1 g, Oral, U nivers (CARAFATE) 1 AC+HS, ity of tablet 1 g 17:45: First dose [place] 00 on Sat [facility] 02/10/20 Branch at 1145, Until Discontinu ed, Routine ondansetron 2020-1 Yes 4mg 4 mg, Unive rs (ZOFRAN) 1- Oral, ity of tablet 4 mg 17:40: Q4HPRN, [place] 29 Starting Medical Sat Branch 02/10/20 at 1140, Until Discontinu ed, Routine, Nausea and Vomiting (N/V) cholecalcif 2020-1 Yes 1000U 1,000 [facility] ers ester 1-11 Units, ity of (vitamin 15:00: Oral, [place] D3) tablet 00 DAILY, Medical 1,000 Units First dose Br anch on Sat02/10/20 at 0900, Until Discontinu ed, Routine foLIC acid 2020-1 Yes 1mg 1 mg, Univer s (FOLATE) 1-11 Oral, ity of tablet 1 mg 15:00: DAILY, [place] 00 First dose Medical on Sat Branch 02/10/20 at 0900, Until Discontinu ed, Routine enoxaparin 2020-1 Yes 40mg 40 mg, Unive rs (LOVENOX) 1-11 Subcutaneo ity of injection 15:00: us, DAILY, [place] 40 mg 00 First dose Medical on Sat Branch 02/10/20 at 0900, Until Discontinu ed, Routine lipase-prot 2020-1 Yes 1{capsu 1 capsule, Univers ease-amylas 11 le} Oral, TID ity of e (CREON) 14:00: MEALS, [place] 12,000-38,0 00 First dose Me dical 00 -60,000 on Sat unit 02/10/20 capsule 1 at 0800, capsule Until Discontinu ed, Routine escitalopra 2019-04 Yes 20mg 20 mg, Univ ers m oxalate 11 Oral, ity of (LEXAPRO) 12:00: QAM-0600, [place] tablet 20 00 First dose Medi julieta mg (after Branch last modificati on) on Sat02/10/20 at 0600, Until Discontinu ed, Routine levothyroxi 2019-04 Yes 137ug 137 mcg, U nivers ne 04-11 Oral, ity of (SYNTHROID) 12:00: QAM-0600, [place] tablet 137 00 First dose Med ical mcg on Sat Branch 02/10/20 at 0600, Until Discontinu ed, Routine melatonin 2019-04 Yes 3mg 3 mg, Univers (MELATIN) 04-11 Oral, QHS, ity of tablet 3 mg 05:15: First dose [place] 00 (after Medical last Branch modificati on) on Sat02/09/20 at 2315, Until Discontinu ed, Routine nicotine 2019-04 Yes 1{patch 1 Patch, Un maddie (NICODERM) 11 } Topical, ity o f 21 mg/24 hr 05:00: Administer [place] patch 1 00 over 24 Medical Patch Hours, Branch Q24H, First dose on Sat02/09/20 at 2300, Until Discontinu ed, Routine morpHINE 2019-04 2020- No 4mg 4 mg, Slow Un maddie injection 4 04-11 IV Push, ity of mg 00:35: 00:34 Q4HPRN, [place] 43 :43 Starting Medical Sat Branch 02/09/20 at 1835, Until Sat02/10/20 at 1834, Routine, Pain (scale 7-10) HYDROcodone 2019-04 2020- No 1{tbl} 1 tablet, Univers -acetaminop 04-11 11-13 Oral, ity of hen (NORCO 00:35: 00:34 Q6HPRN, [place] 5) 5-325 mg 39 :39 Starting Medi julieta tablet 1 Sat tablet 02/09/20 at 1835, Until [place] 02/11/20 at 1834, Routine, Pain (scale 4-6) ondansetron 2019-04- No 4mg 4 mg, Slow Univers (ZOFRAN - 11-10 IV Push, ity of (PF)) 23:30: 22:53 ONCE, 1 [place] injection 4 00 :00 dose, Tue Med ical mg 02/09/20 Branch at 1730, KENIA FENTanyl PF 2019-04- No 50ug 50 mcg, Un maddie (SUBLIMAZE 04-10-10 Slow IV ity o f (PF)) 23:30: 22:53 Push, [place] injection 00 :00 ONCE, 1 Medical 50 mcg dose, Tue Branch 02/09/20 at 1730, Routine NaCl 0.9% 2019-04- No 1000mL at 999 Uni vers (NS) bolus 1-10 11-11 mL/hr, ity of infusion 22:30: 00:22 1,000 mL, Real as 1,000 mL 00 :00 IV Medical Infusion, Branch ONCE, 1 dose, 02/09/20 at 1630, KENIA HYDROcodone 2019-04 Yes 1{tbl} 1 tablet, Univers -acetaminop 1-03 Oral, ity of hen (NORCO) 02:00: Q6HPRN, [place] 10-325 mg 00 Starting Medica l tablet 1 Mon Branch tablet 02/01/20 at 2000, Until Discontinu ed, Routine, Pain (scale 7-10) HYDROcodone 2019-04 Yes 4647 1{tbl} Take 1 Un maddie -acetaminop 1-03 tablet by ity of hen (NORCO) 00:00: mouth once [place] 10-325 mg 00 daily as Medica l tablet needed for Branch Pain (scale 7-10) for up to 7 doses. Indication s: acute pain HYDROcodone 2019-04 Yes 4647 1{tbl} Take 1 Un maddie -acetaminop 1-03 tablet by ity of hen (NORCO) 00:00: mouth once [place] 10-325 mg 00 daily as Medica l tablet needed for Branch Pain (scale 7-10) for up to 7 doses. Indication s: acute pain HYDROcodone 2019-04 Yes 4647 1{tbl} Take 1 Un maddie -acetaminop 1-03 tablet by ity of hen (NORCO) 00:00: mouth once [place] 10-325 mg 00 daily as Medica l tablet needed for Branch Pain (scale 7-10) for up to 7 doses. Indication s: acute pain HYDROcodone 2019- Yes 4647 1{tbl} Take 1 Un maddie -acetaminop 1-03 tablet by ity of hen (NORCO) 00:00: mouth once [place] 10-325 mg 00 daily as Medica l tablet needed for Branch Pain (scale 7-10) for up to 7 doses. Indication s: acute pain HYDROcodone 2019-04 Yes 4647 1{tbl} Take 1 Un maddie -acetaminop 1-03 tablet by ity of hen (NORCO) 00:00: mouth once [place] 10-325 mg 00 daily as Medica l tablet needed for Branch Pain (scale 7-10) for up to 7 doses. Indication s: acute pain HYDROcodone 2019-04 Yes 4647 1{tbl} Take 1 Un maddie -acetaminop 1-03 tablet by ity of hen (NORCO) 00:00: mouth once [place] 10-325 mg 00 daily as Medica l tablet needed for Branch Pain (scale 7-10) for up to 7 doses. Indication s: acute pain HYDROcodone 2019-04 Yes 4647 1{tbl} Take 1 Un maddie -acetaminop 1-03 tablet by ity of hen (NORCO) 00:00: mouth once [place] 10-325 mg 00 daily as Medica l tablet needed for Branch Pain (scale 7-10) for up to 7 doses. Indication s: acute pain HYDROcodone 2019-04 2020- No 4647 1{tbl} Take 1 U nivers -acetaminop 1-03 11-17 tablet by it y of hen (NORCO) 00:00: 00:00 mouth once [place] 10-325 mg 00 :00 daily as Medica l tablet needed for Branch Pain (scale 7-10) for up to 7 doses. Indication s: acute pain ondansetron 2019-04 Yes 4mg 4 mg, Unive rs (ZOFRAN) -02 Oral, ity of tablet 4 mg 20:57: Q4HPRN, [place] 29 Starting Medical Mon Branch 02/01/20 at 1457, Until Discontinu ed, Routine, Nausea and Vomiting (N/V) morpHINE 2019-04- No 2mg 2 mg, Slow Un maddie injection 2 04-02 IV Push, ity of mg 18:00: 22:41 Q6HPRN, [place] 00 :10 Starting [facility] 02/01/20 at 1200, Until [facility] 02/01/20 at 1641, Routine, Pain (scale 7-10) propofoL IV 2019-04- No ONCE INTRA Univers infusion 04-02 PROCEDURE, ity of 17:17: 17:46 Starting [place] 00 :32 [facility] 02/01/20 at Branch 1117, Until [facility] 02/01/20 at 1146, Routine, Intra-op propofoL IV 2019-04 2020- No CONTINUOUS Univers infusion 04-02 PRN, ity of 17:17: 17:46 Starting [place] 00 :32 [facility] 02/01/20 at Branch 1117, Until [facility] 02/01/20 at 1146, Routine, Intra-op propofoL IV 2019-04- No ONCE INTRA Univers infusion 04-02 PROCEDURE, ity of 17:17: 17:46 Starting [place] 00 :32 [facility] 02/01/20 at Branch 1117, Until [facility] 02/01/20 at 1146, Routine, Intra-op propofoL IV 2019-04 2020- No CONTINUOUS Univers infusion 04-02 PRN, ity of 17:17: 17:46 Starting [place] 00 :32 [facility] 02/01/20 at Branch 1117, Until [facility] 02/01/20 at 1146, Routine, Intra-op lactated 2019-04- No IV Univers ringers IV 04-02 Infusion, ity of infusion 16:30: 17:46 CONTINUOUS [place] 00 :32 PRN, Medical Starting [facility] 02/01/20 at 1030, Until [facility] 02/01/20 at 1146, Routine, Intra-op lactated 2019-04 2020- No IV Univers ringers IV 04-02 Infusion, ity of infusion 16:30: 17:46 CONTINUOUS [place] 00 :32 PRN, Medical Starting [facility] 02/01/20 at 1030, Until [facility] 02/01/20 at 1146, Routine, Intra-op ramelteon 2019-04 Yes 8mg 8 mg, Univers (ROZEREM) 1-02 Oral, QHS, ity of tablet 8 mg 03:00: First dose [place] 00 on [place] Medical 01/31/20 at Branch 2100, Until Discontinu ed, Routine lidocaine 2 2019-04 Yes 15mL Apply 15 Univers % mucosal 1-02 mL to ity of jelly 00:00: area(s) as [place] 00 needed for Medical Local Branch anesthesia (pain or itching, apply over left foot). ondansetron 2019-04 Yes [id number] 4mg Take 1 Univers 4 mg tablet 1-02 tablet by ity of 00:00: mouth [place] 00 every 4 Medical (four) Branch hours as needed for Nausea and Vomiting (N/V). lidocaine 2 2019-04 Yes 15mL Apply 15 Univers % mucosal 1-02 mL to ity of jelly 00:00: area(s) as [place] 00 needed for Medical Local Branch anesthesia (pain or itching, apply over left foot). ondansetron 2019-04 Yes [id number] 4mg Take 1 Univers 4 mg tablet 1-02 tablet by ity of 00:00: mouth [place] 00 every 4 Medical (four) Branch hours as needed for Nausea and Vomiting (N/V). lidocaine 2 2019-04 Yes 15mL Apply 15 Univers % mucosal 1-02 mL to ity of jelly 00:00: area(s) as [place] 00 needed for Medical Local Branch anesthesia (pain or itching, apply over left foot). ondansetron 2019-04 Yes [id number] 4mg Take 1 Univers 4 mg tablet 1-02 tablet by ity of 00:00: mouth [place] 00 every 4 Medical (four) Branch hours as needed for Nausea and Vomiting (N/V). lidocaine 2 2019-04 Yes 15mL Apply 15 Univers % mucosal 1-02 mL to ity of jelly 00:00: area(s) as [place] 00 needed for Medical Local Branch anesthesia (pain or itching, apply over left foot). ondansetron 2019-04 Yes [id number] 4mg Take 1 Univers 4 mg tablet 1-02 tablet by ity of 00:00: mouth [place] 00 every 4 Medical (four) Branch hours as needed for Nausea and Vomiting (N/V). lidocaine 2 2019-04 Yes 15mL Apply 15 Univers % mucosal 1-02 mL to ity of jelly 00:00: area(s) as [place] 00 needed for Medical Local Branch anesthesia (pain or itching, apply over left foot). ondansetron 2019-04 Yes [id number] 4mg Take 1 Univers 4 mg tablet 1-02 tablet by ity of 00:00: mouth [place] 00 every 4 Medical (four) Branch hours as needed for Nausea and Vomiting (N/V). lidocaine 2 2019-04 Yes 15mL Apply 15 Univers % mucosal 1-02 mL to ity of jelly 00:00: area(s) as [place] 00 needed for Medical Local Branch anesthesia (pain or itching, apply over left foot). ondansetron 2019-04 Yes [id number] 4mg Take 1 Univers 4 mg tablet 1-02 tablet by ity of 00:00: mouth [place] 00 every 4 Medical (four) Branch hours as needed for Nausea and Vomiting (N/V). lidocaine 2 2019-04 Yes 15mL Apply 15 Univers % mucosal 1-02 mL to ity of jelly 00:00: area(s) as [place] 00 needed for Medical Local Branch anesthesia (pain or itching, apply over left foot). ondansetron 2019-04 Yes [id number] 4mg Take 1 Univers 4 mg tablet 1-02 tablet by ity of 00:00: mouth [place] 00 every 4 Medical (four) Branch hours as needed for Nausea and Vomiting (N/V). lidocaine 2 2019-04 Yes 15mL Apply 15 Univers % mucosal 1-02 mL to ity of jelly 00:00: area(s) as [place] 00 needed for Medical Local Branch anesthesia (pain or itching, apply over left foot). ondansetron 2019-04 Yes [id number] 4mg Take 1 Univers 4 mg tablet 1-02 tablet by ity of 00:00: mouth [place] 00 every 4 Medical (four) Branch hours as needed for Nausea and Vomiting (N/V). lidocaine 2 2019-04 Yes 15mL Apply 15 Univers % mucosal 1-02 mL to ity of jelly 00:00: area(s) as [place] 00 needed for Medical Local Branch anesthesia (pain or itching, apply over left foot). ondansetron 2019-04 Yes [id number] 4mg Take 1 Univers 4 mg tablet 1-02 tablet by ity of 00:00: mouth [place] 00 every 4 Medical (four) Branch hours as needed for Nausea and Vomiting (N/V). lidocaine 2 2019-04 Yes 15mL Apply 15 Univers % mucosal 1-02 mL to ity of jelly 00:00: area(s) as [place] 00 needed for Medical Local Branch anesthesia (pain or itching, apply over left foot). ondansetron 2019-04 Yes [id number] 4mg Take 1 Univers 4 mg tablet 1-02 tablet by ity of 00:00: mouth [place] 00 every 4 Medical (four) Branch hours as needed for Nausea and Vomiting (N/V). lidocaine 2 2019-04 Yes 15mL Apply 15 Univers % mucosal 1-02 mL to ity of jelly 00:00: area(s) as [place] 00 needed for Medical Local Branch anesthesia (pain or itching, apply over left foot). ondansetron 2019-04 Yes [id number] 4mg Take 1 Univers 4 mg tablet 1-02 tablet by ity of 00:00: mouth [place] 00 every 4 Medical (four) Branch hours as needed for Nausea and Vomiting (N/V). lidocaine 2 2019-04 Yes 15mL Apply 15 Univers % mucosal 1-02 mL to ity of jelly 00:00: area(s) as [place] 00 needed for Medical Local Branch anesthesia (pain or itching, apply over left foot). ondansetron 2019-04 Yes [id number] 4mg Take 1 Univers 4 mg tablet 1-02 tablet by ity of 00:00: mouth [place] 00 every 4 Medical (four) Branch hours as needed for Nausea and Vomiting (N/V). lidocaine 2 2019-04 Yes 15mL Apply 15 Univers % mucosal 1-02 mL to ity of jelly 00:00: area(s) as [place] 00 needed for Medical Local Branch anesthesia (pain or itching, apply over left foot). ondansetron 2019-04 Yes [id number] 4mg Take 1 Univers 4 mg tablet 1-02 tablet by ity of 00:00: mouth [place] 00 every 4 Medical (four) Branch hours as needed for Nausea and Vomiting (N/V). lidocaine 2 2019-04 Yes 15mL Apply 15 Univers % mucosal 1-02 mL to ity of jelly 00:00: area(s) as [place] 00 needed for Medical Local Branch anesthesia (pain or itching, apply over left foot). ondansetron 2019-04 Yes [id number] 4mg Take 1 Univers 4 mg tablet 1-02 tablet by ity of 00:00: mouth [place] 00 every 4 Medical (four) Branch hours as needed for Nausea and Vomiting (N/V). lidocaine 2 2019-04 Yes 15mL Apply 15 Univers % mucosal 1-02 mL to ity of jelly 00:00: area(s) as [place] 00 needed for Medical Local Branch anesthesia (pain or itching, apply over left foot). ondansetron 2019-04 Yes [id number] 4mg Take 1 Univers 4 mg tablet 1-02 tablet by ity of 00:00: mouth [place] 00 every 4 Medical (four) Branch hours as needed for Nausea and Vomiting (N/V). lidocaine 2 2019-04 Yes 15mL Apply 15 Univers % mucosal 1-02 mL to ity of jelly 00:00: area(s) as [place] 00 needed for Medical Local Branch anesthesia (pain or itching, apply over left foot). ondansetron 2019-04 Yes [id number] 4mg Take 1 Univers 4 mg tablet 1-02 tablet by ity of 00:00: mouth [place] 00 every 4 Medical (four) Branch hours as needed for Nausea and Vomiting (N/V). lidocaine 2 2019-04 Yes 15mL Apply 15 Univers % mucosal 1-02 mL to ity of jelly 00:00: area(s) as [place] 00 needed for Medical Local Branch anesthesia (pain or itching, apply over left foot). ondansetron 2019-04 Yes [id number] 4mg Take 1 Univers 4 mg tablet 1-02 tablet by ity of 00:00: mouth [place] 00 every 4 Medical (four) Branch hours as needed for Nausea and Vomiting (N/V). lidocaine 2 2019-04 Yes 15mL Apply 15 Univers % mucosal 1-02 mL to ity of jelly 00:00: area(s) as [place] 00 needed for Medical Local Branch anesthesia (pain or itching, apply over left foot). ondansetron 2019-04 Yes [id number] 4mg Take 1 Univers 4 mg tablet 1-02 tablet by ity of 00:00: mouth [place] 00 every 4 Medical (four) Branch hours as needed for Nausea and Vomiting (N/V). lidocaine 2 2019-04 Yes 15mL Apply 15 Univers % mucosal 1-02 mL to ity of jelly 00:00: area(s) as [place] 00 needed for Medical Local Branch anesthesia (pain or itching, apply over left foot). ondansetron 2019-04 Yes [id number] 4mg Take 1 Univers 4 mg tablet 1-02 tablet by ity of 00:00: mouth [place] 00 every 4 Medical (four) Branch hours as needed for Nausea and Vomiting (N/V). lidocaine 2 2019-04 Yes 15mL Apply 15 Univers % mucosal 1-02 mL to ity of jelly 00:00: area(s) as [place] 00 needed for Medical Local Branch anesthesia (pain or itching, apply over left foot). ondansetron 2019-04 Yes [id number] 4mg Take 1 Univers 4 mg tablet 1-02 tablet by ity of 00:00: mouth [place] 00 every 4 Medical (four) Branch hours as needed for Nausea and Vomiting (N/V). lidocaine 2 2019-04 Yes 15mL Apply 15 Univers % mucosal 1-02 mL to ity of jelly 00:00: area(s) as [place] 00 needed for Medical Local Branch anesthesia (pain or itching, apply over left foot). ondansetron 2019-04 Yes [id number] 4mg Take 1 Univers 4 mg tablet 1-02 tablet by ity of 00:00: mouth [place] 00 every 4 Medical (four) Branch hours as needed for Nausea and Vomiting (N/V). lidocaine 2 2019-04 Yes 15mL Apply 15 Univers % mucosal 1-02 mL to ity of jelly 00:00: area(s) as [place] 00 needed for Medical Local Branch anesthesia (pain or itching, apply over left foot). ondansetron 2019-04 Yes [id number] 4mg Take 1 Univers 4 mg tablet 1-02 tablet by ity of 00:00: mouth [place] 00 every 4 Medical (four) Branch hours as needed for Nausea and Vomiting (N/V). lidocaine 2 2019-04 Yes 15mL Apply 15 Univers % mucosal 1-02 mL to ity of jelly 00:00: area(s) as [place] 00 needed for Medical Local Branch anesthesia (pain or itching, apply over left foot). ondansetron 2019-04 Yes [id number] 4mg Take 1 Univers 4 mg tablet 1-02 tablet by ity of 00:00: mouth [place] 00 every 4 Medical (four) Branch hours as needed for Nausea and Vomiting (N/V). lidocaine 2 2019-04 No [id number] 15mL Apply 15 Univers % mucosal 1-02 05-30 mL to ity of jelly 00:00: 00:00 area(s) as [place] 00 :00 needed for Medical Local Branch anesthesia (pain or itching, apply over left foot). ondansetron 2019-04 No [id number] 4mg Take 1 Univers 4 mg tablet - 05-30 tablet by it y of 00:00: 00:00 mouth [place] 00 :00 every 4 Medical (four) Branch hours as needed for Nausea and Vomiting (N/V). naproxen 2019-04 No [id number] 500mg Take 1 Univers 500 mg 1-02 11-10 tablet by ity of tablet 00:00: 05:59 mouth 2 [place] 00 :00 (two) Medical times Branch daily with meals for 7 days. Take with food naproxen 2019-04- No [id number] 500mg Take 1 Univers 500 mg 1-02 11-10 tablet by ity of tablet 00:00: 05:59 mouth 2 [place] 00 :00 (two) Medical times Branch daily with meals for 7 days. Take with food naproxen 2019-04- No [id number] 500mg Take 1 Univers 500 mg 1-02 11-10 tablet by ity of tablet 00:00: 05:59 mouth 2 [place] 00 :00 (two) Medical times Branch daily with meals for 7 days. Take with food naproxen 2019-04- No [id number] 500mg Take 1 Univers 500 mg 1-02 11-10 tablet by ity of tablet 00:00: 05:59 mouth 2 [place] 00 :00 (two) Medical times Branch daily with meals for 7 days. Take with food predniSONE 2019-04- No [id number] Take 1 Univers 20 mg 1-02 11-07 tablet by ity of tablet 00:00: 05:59 mouth [place] 00 :00 daily for Medical 2 days, Branch THEN 0.5 tablets daily for 2 days. predniSONE 2019-04- No [id number] Take 1 Univers 20 mg 04-02 tablet by ity of tablet 00:00: 05:59 mouth [place] 00 :00 daily for Medical 2 days, Branch THEN 0.5 tablets daily for 2 days. predniSONE 2019-04- No [id number] Take 1 Univers 20 mg 04-02 tablet by ity of tablet 00:00: 05:59 mouth [place] 00 :00 daily for Medical 2 days, Branch THEN 0.5 tablets daily for 2 days. predniSONE 2019-04- No [id number] Take 1 Univers 20 mg 04-02 tablet by ity of tablet 00:00: 05:59 mouth [place] 00 :00 daily for Medical 2 days, Branch THEN 0.5 tablets daily for 2 days. naproxen 2019-04 Yes 500mg 500 mg, Unive rs (NAPROSYN) 04-01 Oral, BID ity of tablet 500 23:00: MEALS, [place] mg 00 First dose Medical on [facility] 01/31/20 at 1700, Until Discontinu ed, Routine predniSONE 2019-04 Yes 30mg 30 mg, Unive rs (DELTASONE) 04-01 Oral, ity of tablet 30 17:45: DAILY, [place] mg 00 First dose Medical on [facility] 01/31/20 at 1145, Until Discontinu ed, Routine vancomycin 2019-04 No 1250mg 1,250 mg, Univers 1250 mg in 01-30 IV ity of NS 250 mL 21:30: 15:41 Piggyback, [place] RTU IV 00 :03 Q8H ABX, Medical Piggyback First dose Bran ch 1,250 mg (after last modificati on) on 01/30/20 at 1630, Until Discontinu ed
Reas on for Anti-Infec tive: Empiric Therapy for Suspected Infection< br>Empiric Therapy Site: Joint
D uration of therapy: 72 hours FENTanyl PF 2019-04 No 25ug 25 mcg, Un maddie (SUBLIMAZE 01-29 Slow IV ity o f (PF)) 20:00: 19:01 Push, [place] injection 00 :00 ONCE, 1 Medical 25 mcg dose, Sat Branch 01/30/20 at 1500, Routine FENTanyl PF 2019-04 2020- No 25ug 25 mcg, Un maddie (SUBLIMAZE 01-29 Slow IV ity o f (PF)) 19:15: 18:22 Push, [place] injection 00 :00 ONCE, 1 Medical 25 mcg dose, Sat Branch 01/30/20 at 1415, Routine lidocaine 2019-04- No 10mL 10 mL, Unive rs 2% 01-29 Infiltrati ity of (XYLOCAINE) 18:45: 18:45 on, ONCE, [place] 20 mg/mL (2 00 :00 1 dose, Medic al %) Sat Branch injection 01/30/20 10 mL at 1345, Routine lidocaine 2019-04 Yes 15mL 15 mL, Univer s (XYLOCAINE) 0 Topical, ity of 2 % mucosal 12:54: PRN, [place] jelly 15 mL 50 Starting Medi julieta Sat Branch 01/30/20 at 0754, Until Discontinu ed, Routine, Local anesthesia , pain or itching, apply over left foot escitalopra 2019-04 Yes 20mg 20 mg, Univ ers m oxalate 0 Oral, ity of (LEXAPRO) 11:00: QAM-0600, Real as tablet 20 00 First dose Medi julieta mg (after Branch last modificati on) on 01/30/20 at 0600, Until Discontinu ed, Routine lidocaine 2019-04 Yes 15mL 15 mL, Univer s (XYLOCAINE) 0 Topical, ity of 2 % mucosal 05:35: Q4HPRN, Real as jelly 15 mL 06 Starting Medi julieta Sat Branch 01/30/20 at 0035, Until Discontinu ed, Routine, Local anesthesia gadobenate 2019-04 2020- No .2mL/kg 17.28 mL Univers dimeglumine 01-29 (0.2 mL/kg i ty of (MULTIHANCE 05:00: 04:33 ?86.4 kg), [place] -20 mL) 00 :00 Intravenou Medica l injection s, ONCE, 1 Bran ch 17.28 mL dose, 01/30/20 at 0000, Routine LORazepam 2019-04- No .5mg 0.5 mg, Univ ers (ATIVAN) 0-31 Oral, ity of tablet 0.5 04:15: 03:21 ONCE, 1 [place] mg 00 :00 dose, Sat Medical 01/29/20 Branch at 2315, Routine enoxaparin 2019-04 Yes 40mg 40 mg, Unive rs (LOVENOX) 030 Subcutaneo ity of injection 22:00: [place], [place]ILY, [place] 40 mg 00 First dose Medical on Sat Branch 01/29/20 at 1700, Until Discontinu ed, Routine NaCl 0.9% 2019-04- No 1000mL at 200 Uni vers (NS) IV 031 mL/hr, IV ity of infusion 16:15: 12:59 Infusion, [place] 1,000 mL 00 :03 CONTINUOUS Medic al , Starting Branch Sat01/29/20 at 1115, Until 01/30/20 at 0759, Routine clindamycin 2019-04 No 600mg 600 mg, IV Univers in 5 % 01-29 Piggyback, ity of dextrose 16:00: 20:14 Q8H ABX, [place] (CLEOCIN) 00 :40 First dose Medi julieta 600 mg/50 (after Branch mL IV last piggyback reorder) RTU 600 mg on Sat01/29/20 at 1100, Until Discontinu ed, 50 mL
Reas on for Anti-Infec tive: Documented Infection< br>Documen meng Infection Site: Skin / Soft Tissue
Duration of Therapy: 7 days
Re stricted use approved by: ADC PROVIDER cefTRIAXone 2019-04- No 2000mg 2,000 mg, Univers (ROCEPHIN) 01-30 IV ity of 2,000 mg in 15:30: 15:41 Piggyback, [place] NaCl 0.9% 00 :14 Q24H ABX, Medic al (NS) 100 mL First dose Br anch MINI-BAG on Sat01/29/20 at 1030, Until Discontinu ed, 100 mL
Reas on for Anti-Infec tive: Empiric Therapy for Suspected Infection< br>Empiric Therapy Site: Blood
D uration of therapy: 72 hours pantoprazol 2019-04 Yes 40mg 40 mg, Univ ers e 030 Oral, ity of (PROTONIX) 14:00: DAILY, [place] EC tablet 00 First dose Medi julieta 40 mg on Sat Branch 01/29/20 at 0900, Until Discontinu ed, Routine cholecalcif 2020- Yes 1000U 1,000 [facility] ers ester 0-30 Units, ity of (vitamin 14:00: Oral, [place] D3) tablet 00 DAILY, Medical 1,000 Units First dose Br anch on Sat01/29/20 at 0900, Until Discontinu ed, Routine escitalopra 2020 2020- No 20mg 20 mg, Uni vers m oxalate 0-30 10-30 Oral, ity of (LEXAPRO) 14:00: 14:23 DAILY, [place] tablet 20 00 :32 First dose Medi julieta mg on Sat Branch 01/29/20 at 0900, Until Discontinu ed, Routine lipase-prot 2020 Yes 1{capsu 1 capsule, Univers ease-amylas 0-30 le} Oral, TID ity of e (CREON) 13:00: MEALS, [place] 12,000-38,0 00 First dose Me dical 00 -60,000 on Fri Branch unit 01/29/20 capsule 1 at 0800, capsule Until Discontinu ed, Routine sucralfate 2020- Yes 1g 1 g, Oral, U nivers (CARAFATE) 0-30 AC+HS, ity of tablet 1 g 12:30: First dose [place] 00 on Fri Medical 01/29/20 Branch at 0730, Until Discontinu ed, Routine nicotine 2020- Yes 1{patch 1 Patch, Un maddie (NICODERM) 0-30 } Topical, ity o f 14 mg/24 hr 11:30: Administer [place] patch 1 00 over 24 Medical Patch Hours, Branch Q24H, First dose on Sat01/29/20 at 0630, Until Discontinu ed, Routine levothyroxi 2020- Yes 137ug 137 mcg, U nivers ne 0-30 Oral, ity of (SYNTHROID) 11:00: QAM-0600, [place] tablet 137 00 First dose Med ical mcg on Fri Branch 01/29/20 at 0600, Until Discontinu ed, Routine dicyclomine 2020- Yes 10mg 10 mg, Univ ers (BENTYL) 0-30 Oral, ity of capsule 10 10:16: QIDPRN, [place] mg 44 Starting Medical Fri Branch 01/29/20 at 0516, Until Discontinu ed, Routine, Abdominal pain morpHINE 2019-04- No 2mg 2 mg, Slow Un maddie injection 2 0-30 11-02 IV Push, ity of mg 07:57: 12:49 Q4[place]om[place], [place] 28 :45 Starting Medical Fri Branch 01/29/20 at 0257, Until 02/01/20 at 0649, Routine, Pain (scale 7-10) ondansetron 2019-04- No 4mg 4 mg, Slow Univers (ZOFRAN 0-30 10-30 IV Push, ity of (PF)) 07:15: 06:14 ONCE, 1 [place] injection 4 00 :00 dose, Fri Med ical mg 01/29/20 Branch at 0215, KENIA clindamycin 2019-04 No 600mg 600 mg, IV Univers in 5 % 0-30 10-30 Piggyback, ity of dextrose 07:00: 08:52 ONCE, 1 [place] (CLEOCIN) 00 :00 dose, Fri Medic al 600 mg/50 01/29/20 Branch mL IV at 0200, piggyback 50 RTU 600 mg mL
Reas on for Anti-Infec tive: Documented Infection< br>Documen meng Infection Site: Skin / Soft Tissue
Duration of Therapy: 7 days
Re stricted use approved by: ADC PROVIDER ondansetron 2019-04- No 4mg 4 mg, Slow Univers (ZOFRAN 0-30 11-02 IV Push, ity of (PF)) 06:59: 20:58 [facility], [place] injection 4 54 :01 Starting Medi julieta mg [facility] Branch 01/29/20 at 0159, Until 02/01/20 at 1458, Routine, Nausea and Vomiting (N/V) acetaminoph 2019-04 Yes 650mg 650 mg, Un maddie en 0-30 Oral, ity of (TYLENOL) 06:59: Q6[place]om[place]ii, [place] tablet 650 25 Starting Medic al mg [facility] Branch 01/29/20 at 0159, Until Discontinu ed, Routine, Pain (scale 1-3) FENTanyl PF 2019-04- No 50ug 50 mcg, Un maddie (SUBLIMAZE 0-30 10-30 Slow IV ity o f (PF)) 05:30: 04:24 Push, [place] injection 00 :00 ONCE, 1 Medical 50 mcg dose, Fri Branch 01/29/20 at 0030, STAT NaCl 0.9% 2019-04- No 1000mL at 999 Uni vers (NS) bolus 0-30 10-30 mL/hr, ity of infusion 05:15: 06:10 1,000 mL, [place] as 1,000 mL 00 :00 IV Medical Infusion, Branch ONCE, 1 dose, Sat01/29/20 at 0015, KENIA maalox:diph 2019-04- No 15mL 15 mL, Uni vers enhydrAMINE 0-30 10-30 Oral, ity of :lidocaine 05:15: 05:15 ONCE, 1 [place] 2 % viscous 00 :00 dose, Sat Med ical 1:1:1 01/29/20 Branch (FIRST-MOUT at 0015, HWASH BLM) Routine oral suspension 15 mL lipase-prot 2019-04 Yes 1{capsu 1 capsule, Univers ease-amylas 0-21 le} Oral, TID ity of e (CREON) 22:00: MEALS, [place] 12,000-38,0 00 First dose Me dical 00 -60,000 on Sat Branch unit 01/20/20 capsule 1 at 1700, capsule Until Discontinu ed, Routine morpHINE 2019-04 Yes 2mg 2 mg, Slow Uni vers injection 2 0-21 IV Push, ity of mg 19:45: Q6HPRN, [place] 00 Starting Medical Wed Branch 01/20/20 at 1445, Until Discontinu ed, Routine, Pain (scale 7-10) lactated 2019-04- No 1000mL at 42 Unive rs ringers IV 0-21 10-21 mL/hr, ity of infusion 15:30: 15:16 1,000 mL, [place] 1,000 mL 00 :00 IV Medical Infusion, Branch ONCE, 1 dose, 01/20/20 at 1030, Routine, DSU Pre-op pantoprazol 2019-04 Yes 40mg 40 mg, IV U nivers e 0-21 Piggyback, ity of (PROTONIX) 00:45: Q12H, [place] 40 mg in 00 First dose Medic al NaCl 0.9% on Sat Branch (NS) 100 mL 01/19/20 MINI-BAG at 1945, Until Discontinu ed, 100 mL lipase-prot 2019-04- No [id number] 1{capsu Take 1 Univers ease-amylas 0-21 11-21 le} capsule by i ty of e 00:00: 05:59 mouth 3 [place] 12,000-38,0 00 :00 (three) Medic al 00 -60,000 times Branch unit daily with capsule meals for 30 days. pantoprazol 2019-04- No [id number] 40mg Take 1 Univers e 40 mg EC 0-21 11-21 tablet by ity of tablet 00:00: 05:59 mouth [place] 00 :00 daily for Medical 30 days. Branch sucralfate 2019-04- No [id number] 1g Take 1 Univers 1 gram 0-21 11-21 tablet by ity of tablet 00:00: 05:59 mouth [place] 00 :00 before Medical meals and Branch at bedtime for 30 days. dicyclomine 2019-04 No [id number] 10mg Take 1 [facility] 10 mg 0-21 11-21 capsule by ity of capsule 00:00: 05:59 mouth 4 [place] 00 :00 (four) Medical times Branch daily as needed for Abdominal pain for up to 30 days. lipase-prot 2019-04- No [id number] 1{capsu Take 1 Univers ease-amylas 0-21 11-21 le} capsule by i ty of e 00:00: 05:59 mouth 3 [place] 12,000-38,0 00 :00 (three) Medic al 00 -60,000 times Branch unit daily with capsule meals for 30 days. pantoprazol 2019-04- No [id number] 40mg Take 1 Univers e 40 mg EC 0-21 11-21 tablet by ity of tablet 00:00: 05:59 mouth [place] 00 :00 daily for Medical 30 days. Branch sucralfate 2019-2019- No [id number] 1g Take 1 Univers 1 gram 0-21 11-21 tablet by ity of tablet 00:00: 05:59 mouth [place] 00 :00 before Medical meals and Branch at bedtime for 30 days. dicyclomine 2019-2019- No [id number] 10mg Take 1 Univers 10 mg 0-21 11-21 capsule by ity of capsule 00:00: 05:59 mouth 4 [place] 00 :00 (four) Medical times Branch daily as needed for Abdominal pain for up to 30 days. lipase-prot 2019-2019- No [id number] 1{capsu Take 1 Univers ease-amylas 0-21 11-21 le} capsule by i ty of e 00:00: 05:59 mouth 3 [place] 12,000-38,0 00 :00 (three) Medic al 00 -60,000 times Branch unit daily with capsule meals for 30 days. pantoprazol 2019-04- No [id number] 40mg Take 1 Univers e 40 mg EC 0-21 11-21 tablet by ity of tablet 00:00: 05:59 mouth [place] 00 :00 daily for Medical 30 days. Branch sucralfate 2019-2019- No [id number] 1g Take 1 Univers 1 gram 0-21 11-21 tablet by ity of tablet 00:00: 05:59 mouth [place] 00 :00 before Medical meals and Branch at bedtime for 30 days. dicyclomine 2019-2019- No [id number] 10mg Take 1 Univers 10 mg 0-21 11-21 capsule by ity of capsule 00:00: 05:59 mouth 4 [place] 00 :00 (four) Medical times Branch daily as needed for Abdominal pain for up to 30 days. lipase-prot 2019-04- No [id number] 1{capsu Take 1 Univers ease-amylas 0-21 11-21 le} capsule by i ty of e 00:00: 05:59 mouth 3 [place] 12,000-38,0 00 :00 (three) Medic al 00 -60,000 times Branch unit daily with capsule meals for 30 days. pantoprazol 2019-04- No [id number] 40mg Take 1 Univers e 40 mg EC 0-21 11-21 tablet by ity of tablet 00:00: 05:59 mouth [place] 00 :00 daily for Medical 30 days. Branch sucralfate 2019-2019- No [id number] 1g Take 1 Univers 1 gram 0-21 11-21 tablet by ity of tablet 00:00: 05:59 mouth [place] 00 :00 before Medical meals and Branch at bedtime for 30 days. dicyclomine 2019-2019- No [id number] 10mg Take 1 Univers 10 mg 0-21 11-21 capsule by ity of capsule 00:00: 05:59 mouth 4 [place] 00 :00 (four) Medical times Branch daily as needed for Abdominal pain for up to 30 days. lipase-prot 2019-04- No [id number] 1{capsu Take 1 Univers ease-amylas 0-21 11-21 le} capsule by i ty of e 00:00: 05:59 mouth 3 [place] 12,000-38,0 00 :00 (three) Medic al 00 -60,000 times Branch unit daily with capsule meals for 30 days. pantoprazol 2019-04- No [id number] 40mg Take 1 Univers e 40 mg EC 0-21 11-21 tablet by ity of tablet 00:00: 05:59 mouth [place] 00 :00 daily for Medical 30 days. Branch sucralfate 2019-2019- No [id number] 1g Take 1 Univers 1 gram 0-21 11-21 tablet by ity of tablet 00:00: 05:59 mouth [place] 00 :00 before Medical meals and Branch at bedtime for 30 days. dicyclomine 2019- No [id number] 10mg Take 1 Univers 10 mg 0-21 11-21 capsule by ity of capsule 00:00: 05:59 mouth 4 [place] 00 :00 (four) Medical times Branch daily as needed for Abdominal pain for up to 30 days. lipase-prot 2019-04- No [id number] 1{capsu Take 1 Univers ease-amylas 0-21 11-21 le} capsule by i ty of e 00:00: 05:59 mouth 3 [place] 12,000-38,0 00 :00 (three) Medic al 00 -60,000 times Branch unit daily with capsule meals for 30 days. pantoprazol 2019-04- No [id number] 40mg Take 1 Univers e 40 mg EC 0-21 11-21 tablet by ity of tablet 00:00: 05:59 mouth [place] 00 :00 daily for Medical 30 days. Branch sucralfate 2019-2019- No [id number] 1g Take 1 Univers 1 gram 0-21 11-21 tablet by ity of tablet 00:00: 05:59 mouth [place] 00 :00 before Medical meals and Branch at bedtime for 30 days. dicyclomine 2019-2019- No [id number] 10mg Take 1 Univers 10 mg 0-21 11-21 capsule by ity of capsule 00:00: 05:59 mouth 4 [place] 00 :00 (four) Medical times Branch daily as needed for Abdominal pain for up to 30 days. lipase-prot 2019-2019- No [id number] 1{capsu Take 1 Univers ease-amylas 0-21 11-21 le} capsule by i ty of e 00:00: 05:59 mouth 3 [place] 12,000-38,0 00 :00 (three) Medic al 00 -60,000 times Branch unit daily with capsule meals for 30 days. pantoprazol 2019-04- No [id number] 40mg Take 1 Univers e 40 mg EC 0-21 11-21 tablet by ity of tablet 00:00: 05:59 mouth [place] 00 :00 daily for Medical 30 days. Branch sucralfate 2019-2019- No [id number] 1g Take 1 Univers 1 gram 0-21 11-21 tablet by ity of tablet 00:00: 05:59 mouth [place] 00 :00 before Medical meals and Branch at bedtime for 30 days. dicyclomine 2019-2019- No [id number] 10mg Take 1 Univers 10 mg 0-21 11-21 capsule by ity of capsule 00:00: 05:59 mouth 4 [place] 00 :00 (four) Medical times Branch daily as needed for Abdominal pain for up to 30 days. lipase-prot 2019-04- No [id number] 1{capsu Take 1 Univers ease-amylas 0-21 11-21 le} capsule by i ty of e 00:00: 05:59 mouth 3 [place] 12,000-38,0 00 :00 (three) Medic al 00 -60,000 times Branch unit daily with capsule meals for 30 days. pantoprazol 2019-04- No [id number] 40mg Take 1 Univers e 40 mg EC 0-21 11-21 tablet by ity of tablet 00:00: 05:59 mouth [place] 00 :00 daily for Medical 30 days. Branch sucralfate 2019-2019- No [id number] 1g Take 1 Univers 1 gram 0-21 11-21 tablet by ity of tablet 00:00: 05:59 mouth [place] 00 :00 before Medical meals and Branch at bedtime for 30 days. dicyclomine 2019-2019- No [id number] 10mg Take 1 Univers 10 mg 0-21 11-21 capsule by ity of capsule 00:00: 05:59 mouth 4 [place] 00 :00 (four) Medical times Branch daily as needed for Abdominal pain for up to 30 days. lipase-prot 2019-04- No [id number] 1{capsu Take 1 Univers ease-amylas 0-21 11-21 le} capsule by i ty of e 00:00: 05:59 mouth 3 [place] 12,000-38,0 00 :00 (three) Medic al 00 -60,000 times Branch unit daily with capsule meals for 30 days. pantoprazol 2019-04- No [id number] 40mg Take 1 Univers e 40 mg EC 0-21 11-21 tablet by ity of tablet 00:00: 05:59 mouth [place] 00 :00 daily for Medical 30 days. Branch sucralfate 2019-2019- No [id number] 1g Take 1 Univers 1 gram 0-21 11-21 tablet by ity of tablet 00:00: 05:59 mouth [place] 00 :00 before Medical meals and Branch at bedtime for 30 days. dicyclomine 2019-04 No [id number] 10mg Take 1 Univers 10 mg 0-21 11-21 capsule by ity of capsule 00:00: 05:59 mouth 4 [place] 00 :00 (four) Medical times Branch daily as needed for Abdominal pain for up to 30 days. lipase-prot 2019-04 No [id number] 1{capsu Take 1 Univers ease-amylas 0-21 11-21 le} capsule by i ty of e 00:00: 05:59 mouth 3 [place] 12,000-38,0 00 :00 (three) Medic al 00 -60,000 times Branch unit daily with capsule meals for 30 days. pantoprazol 2019-04- No [id number] 40mg Take 1 Univers e 40 mg EC 0-21 11-21 tablet by ity of tablet 00:00: 05:59 mouth [place] 00 :00 daily for Medical 30 days. Branch sucralfate 2019-04- No [id number] 1g Take 1 Univers 1 gram 0-21 11-21 tablet by ity of tablet 00:00: 05:59 mouth [place] 00 :00 before Medical meals and Branch at bedtime for 30 days. dicyclomine 2019-2019- No [id number] 10mg Take 1 [facility] 10 mg 0-21 11-21 capsule by ity of capsule 00:00: 05:59 mouth 4 [place] 00 :00 (four) Medical times Branch daily as needed for Abdominal pain for up to 30 days. lipase-prot 2019-04- No [id number] 1{capsu Take 1 Univers ease-amylas 0-21 11-21 le} capsule by i ty of e 00:00: 05:59 mouth 3 [place] 12,000-38,0 00 :00 (three) Medic al 00 -60,000 times Branch unit daily with capsule meals for 30 days. pantoprazol 2019-04- No [id number] 40mg Take 1 Univers e 40 mg EC 0-21 11-21 tablet by ity of tablet 00:00: 05:59 mouth [place] 00 :00 daily for Medical 30 days. Branch sucralfate 2019-2019- No [id number] 1g Take 1 Univers 1 gram 0-21 11-21 tablet by ity of tablet 00:00: 05:59 mouth [place] 00 :00 before Medical meals and Branch at bedtime for 30 days. dicyclomine 2019-2019- No [id number] 10mg Take 1 Univers 10 mg 0-21 11-21 capsule by ity of capsule 00:00: 05:59 mouth 4 [place] 00 :00 (four) Medical times Branch daily as needed for Abdominal pain for up to 30 days. lipase-prot 2019-04- No [id number] 1{capsu Take 1 Univers ease-amylas 0-21 11-21 le} capsule by i ty of e 00:00: 05:59 mouth 3 [place] 12,000-38,0 00 :00 (three) Medic al 00 -60,000 times Branch unit daily with capsule meals for 30 days. pantoprazol 2019-04- No [id number] 40mg Take 1 Univers e 40 mg EC 0-21 11-21 tablet by ity of tablet 00:00: 05:59 mouth [place] 00 :00 daily for Medical 30 days. Branch sucralfate 2019-2019- No [id number] 1g Take 1 Univers 1 gram 0-21 11-21 tablet by ity of tablet 00:00: 05:59 mouth [place] 00 :00 before Medical meals and Branch at bedtime for 30 days. dicyclomine 2019-2019- No [id number] 10mg Take 1 [facility] 10 mg 0-21 11-21 capsule by ity of capsule 00:00: 05:59 mouth 4 [place] 00 :00 (four) Medical times Branch daily as needed for Abdominal pain for up to 30 days. lipase-prot 2019-04- No [id number] 1{capsu Take 1 Univers ease-amylas 0-21 11-21 le} capsule by i ty of e 00:00: 05:59 mouth 3 [place] 12,000-38,0 00 :00 (three) Medic al 00 -60,000 times Branch unit daily with capsule meals for 30 days. pantoprazol 2019-04- No [id number] 40mg Take 1 Univers e 40 mg EC 0-21 11-21 tablet by ity of tablet 00:00: 05:59 mouth [place] 00 :00 daily for Medical 30 days. Branch sucralfate 2019-04- No [id number] 1g Take 1 Univers 1 gram 0-21 11-21 tablet by ity of tablet 00:00: 05:59 mouth [place] 00 :00 before Medical meals and Branch at bedtime for 30 days. dicyclomine 2019-04 No [id number] 10mg Take 1 [facility] 10 mg 0-21 11-21 capsule by ity of capsule 00:00: 05:59 mouth 4 [place] 00 :00 (four) Medical times Branch daily as needed for Abdominal pain for up to 30 days. lipase-prot 2019-04 No [id number] 1{capsu Take 1 Univers ease-amylas 0-21 11-21 le} capsule by i ty of e 00:00: 05:59 mouth 3 [place] 12,000-38,0 00 :00 (three) Medic al 00 -60,000 times Branch unit daily with capsule meals for 30 days. pantoprazol 2019-04- No [id number] 40mg Take 1 Univers e 40 mg EC 0-21 11-21 tablet by ity of tablet 00:00: 05:59 mouth [place] 00 :00 daily for Medical 30 days. Branch sucralfate 2019-04- No [id number] 1g Take 1 Univers 1 gram 0-21 11-21 tablet by ity of tablet 00:00: 05:59 mouth [place] 00 :00 before Medical meals and Branch at bedtime for 30 days. dicyclomine 2019-2019- No [id number] 10mg Take 1 [facility] 10 mg 0-21 11-21 capsule by ity of capsule 00:00: 05:59 mouth 4 [place] 00 :00 (four) Medical times Branch daily as needed for Abdominal pain for up to 30 days. pantoprazol 2019-04- No [id number] 40mg Take 1 Univers e 40 mg EC 0-21 11-21 tablet by ity of tablet 00:00: 05:59 mouth [place] 00 :00 daily for Medical 30 days. Branch sucralfate 2019-04- No [id number] 1g Take 1 Univers 1 gram 0-21 11-21 tablet by ity of tablet 00:00: 05:59 mouth [place] 00 :00 before Medical meals and Branch at bedtime for 30 days. pantoprazol 2019-04- No [id number] 40mg Take 1 Univers e 40 mg EC 0-21 11-21 tablet by ity of tablet 00:00: 05:59 mouth [place] 00 :00 daily for Medical 30 days. Branch sucralfate 2019-04- No [id number] 1g Take 1 Univers 1 gram 0-21 11-21 tablet by ity of tablet 00:00: 05:59 mouth [place] 00 :00 before Medical meals and Branch at bedtime for 30 days. pantoprazol 2019-04 No [id number] 40mg Take 1 Univers e 40 mg EC 0-21 11-21 tablet by ity of tablet 00:00: 05:59 mouth [place] 00 :00 daily for Medical 30 days. Branch sucralfate 2019-04- No [id number] 1g Take 1 Univers 1 gram 0-21 11-21 tablet by ity of tablet 00:00: 05:59 mouth [place] 00 :00 before Medical meals and Branch at bedtime for 30 days. lipase-prot 2019-04- No [id number] 1{capsu Take 1 Univers ease-amylas 0-21 11-17 le} capsule by i ty of e 00:00: 00:00 mouth 3 [place] 12,000-38,0 00 :00 (three) Medic al 00 -60,000 times Branch unit daily with capsule meals for 30 days. dicyclomine 2019-04- No [id number] 10mg Take 1 Univers 10 mg 0-21 11-17 capsule by ity of capsule 00:00: 00:00 mouth 4 [place] 00 :00 (four) Medical times Branch daily as needed for Abdominal pain for up to 30 days. traMADoL 50 2019-04- No [id number] 50mg Take 1 Uni vers mg tablet 0-21 10-29 tablet by ity of 00:00: 04:59 mouth [place] 00 :00 every 6 Medical (six) Branch hours as needed for Pain (scale 7-10) for up to 7 days. Indication s: acute pain traMADoL 50 2019-04- No [id number] 50mg Take 1 Uni vers mg tablet 0-21 10-29 tablet by ity of 00:00: 04:59 mouth [place] 00 :00 every 6 Medical (six) Branch hours as needed for Pain (scale 7-10) for up to 7 days. Indication s: acute pain traMADoL 50 2019-04- No [id number] 50mg Take 1 Uni vers mg tablet 0-21 10-29 tablet by ity of 00:00: 04:59 mouth [place] 00 :00 every 6 Medical (six) Branch hours as needed for Pain (scale 7-10) for up to 7 days. Indication s: acute pain traMADoL 50 2019-04- No [id number] 50mg Take 1 Uni vers mg tablet 0-21 10-29 tablet by ity of 00:00: 04:59 mouth [place] 00 :00 every 6 Medical (six) Branch hours as needed for Pain (scale 7-10) for up to 7 days. Indication s: acute pain KCL 2019-04 Yes 40meq 40 mEq, Univers (KLOR-CON 0-20 Oral, ity of M20) tablet 22:45: DAILY, [place] 40 mEq 00 First dose Medical on [facility] 01/19/20 at 1745, Until Discontinu ed, Routine loperamide 2019-04 Yes 2mg 2 mg, Univer s (IMODIUM 0-20 Oral, ity of A-D) 22:37: Q4HPRN, [place] capsule 2 34 Starting Medica l mg [facility] 01/19/20 at 1737, Until Discontinu ed, Routine, Diarrhea NaCl 0.9% 2019-04 Yes 1000mL at 150 Univ ers (NS) IV 0-20 mL/hr, IV ity of infusion 21:00: Infusion, [place] 1,000 mL 00 CONTINUOUS Medic al , Starting [facility] 01/19/20 at 1600, Until Discontinu ed, Routine morpHINE 2019-04- No 2mg 2 mg, Slow Un maddie injection 2 0-20 10-21 IV Push, ity of mg 20:00: 19:40 Q3HPRN, [place] 00 :24 Starting Medical [facility] 01/19/20 at 1500, Until Sat01/20/20 at 1440, Routine, Pain (scale 7-10) thiamine 2019-04 Yes 100mg 100 mg, Unive rs (VITAMIN 0-18 Oral, ity of B1) tablet 14:00: DAILY, [place] 100 mg 00 First dose Medical on [facility] 01/17/20 at 0900, Until Discontinu ed, Routine foLIC acid 2019-04 Yes 1mg 1 mg, Univer s (FOLATE) 0-18 Oral, ity of tablet 1 mg 14:00: DAILY, [place] 00 First dose Medical on [facility] 01/17/20 at 0900, Until Discontinu ed, Routine morpHINE 2019-04 2020- No 2mg 2 mg, Slow Un maddie injection 2 01-18 IV Push, ity of mg 10:53: 19:57 Q4HPRN, [place] 51 :39 Starting Medical [facility] 01/17/20 at 0553, Until Sat01/19/20 at 1457, Routine, Pain (scale 7-10) enoxaparin 2019-04 Yes 40mg 40 mg, Unive rs (LOVENOX) 0-17 Subcutaneo ity of injection 22:00: [place], DAILY, [place] 40 mg 00 First dose Medical on [facility] 01/16/20 at 1700, Until Discontinu ed, Routine iohexol 2019-04 2020- No 120mL 120 mL, Unive rs (OMNIPAQUE 0-17 01-15 Intravenou it y of 350 21:45: 21:41 s, ONCE, 1 [place] BULK-100 00 :00 dose, Sat Medica l mL) 01/16/20 Branch injection at 1645, 120 mL Routine diphenhydrA 2019-04 2020- No 12.5mg 12.5 mg, Univers MINE 0-17 01-15 Slow IV ity of (BENADRYL) 21:30: 21:20 Push, [place] injection 00 :00 ONCE, 1 Medical 12.5 mg dose, [facility] 01/16/20 at 1630, Routine levothyroxi 2019-04 Yes 137ug 137 mcg, U nivers ne 0-17 Oral, ity of (SYNTHROID) 17:30: QAM-0600, [place] tablet 137 00 First dose Med ical mcg on [facility] 01/16/20 at 1230, Until Discontinu ed, Routine escitalopra 2019-04 Yes 20mg 20 mg, Univ ers m oxalate 0-17 Oral, ity of (LEXAPRO) 17:30: DAILY, [place] tablet 20 00 First dose Medi julieta mg on [facility] Branch 01/16/20 at 1230, Until Discontinu ed, Routine nicotine 2019-04 Yes 1{patch 1 Patch, Un maddie (NICODERM) 0-17 } Topical, ity o f 21 mg/24 hr 10:45: Administer [place] patch 1 00 over 24 Medical Patch Hours, Branch Q24H, First dose on [facility] 01/16/20 at 0545, Until Discontinu ed, Routine NaCl 0.9% 2019-04 2020- No 1000mL at 125 Uni vers (NS) IV 0-17 10-17 mL/hr, IV ity of infusion 09:00: 09:15 Infusion, Real as 1,000 mL 00 :00 ONCE, 1 Medical dose, [facility] Branch 01/16/20 at 0400, Routine ondansetron 2019-04 Yes 4mg 4 mg, Slow Univers (ZOFRAN 0-17 IV Push, ity of (PF)) 07:47: Q6HPRN, [place] injection 4 59 Starting Medi julieta mg [facility] Branch 01/16/20 at 0247, Until Discontinu ed, Routine, Nausea and Vomiting (N/V) morpHINE 2019-04- No 2mg 2 mg, Slow Un maddie injection 2 0-17 10-18 IV Push, ity of mg 07:47: 07:46 Q4HPRN, [place] 55 :55 Starting Medical [facility] Branch 01/16/20 at 0247, Until 01/17/20 at 0246, Routine, Pain (scale 7-10) acetaminoph 2019-04 Yes 650mg 650 mg, Un maddie en 0-17 Oral, ity of (TYLENOL) 07:47: Q6HPRN, [place] tablet 650 45 Starting Medic al mg [facility] Branch 01/16/20 at 0247, Until Discontinu ed, Routine, Pain (scale 1-3) FENTanyl PF 2019-04 2020- No 50ug 50 mcg, Un maddie (SUBLIMAZE 0-17 10-17 Slow IV ity o f (PF)) 07:30: 06:33 Push, [place] injection 00 :00 ONCE, 1 Medical 50 mcg dose, [facility] Branch 01/16/20 at 0230, STAT ketorolac 2019-04- No 30mg 30 mg, Unive rs (TORADOL) 0-15 01-17 Slow IV ity of injection 06:45: 05:50 Push, [place] 30 mg 00 :00 ONCE, 1 Medical dose, Sat Branch 01/16/20 at 0145, [facility] EMERGENCY ROOM, proMETHazin 2019-04- No 25mg 25 mg, IV Univers e 0-15 01- Piggyback, ity of (PHENERGAN) 06:15: 06:15 ONCE, 1 [place] 25 [place] in 00 :00 dose, Sat Medica l NaCl 0.9% 01/16/20 Branch (NS) 50 mL at 0115, piggyback 50 mL NaCl 0.9% 2019-04- No 1000mL at 999 Uni vers (NS) bolus 0- 10-17 mL/hr, ity of infusion 05:15: 07:24 1,000 mL, Real [place] 1,000 mL 00 :00 IV Medical Infusion, Branch ONCE, 1 dose, 01/16/20 at 0015, [place]EN[place] cholecalcif 2019-04- No [id number] 1000U Take 1 [facility] ester, 0-13 11-17 tablet by ity of vitamin D3, 00:00: 00:[place] 25 [place]cg 00 :00 daily for Medical (1,000 30 days. Branch unit) tablet foLIC acid 2019-04- No [id number] 1mg Take 1 [facility] 1 mg tablet 0-13 11-17 tablet by it y of 00:00: 00:00 mouth [place] 00 :00 daily for Medical 30 days. Branch cholecalcif 2019-04- No [id number] 1000U Take 1 [facility] ester, 0-13 11-13 tablet by ity of vitamin D3, 00:00: 05:59 [place] 25 mcg 00 :00 daily for Medical (1,000 30 days. Branch unit) tablet foLIC acid 2019-04- No [id number] 1mg Take 1 [facility] 1 mg tablet 0-13 11-13 tablet by it y of 00:00: 05:59 mouth [place] 00 :00 daily for Medical 30 days. Branch thiamine 2019-04- No [id number] 100mg Take 1 [facility] 100 mg 0-13 11-13 tablet by ity of tablet 00:00: 05:59 mouth [place] 00 :00 daily for Medical 30 days. [place] cholecalcif 2019-04- No [id number] 1000U Take 1 [facility] ester, 0-13 11-13 tablet by ity of vitamin D3, 00:00: 05:59 [place] 25 mcg 00 :00 daily for Medical (1,000 30 days. Branch unit) tablet foLIC acid 2019-04- No [id number] 1mg Take 1 [facility] 1 mg tablet 0-13 11-13 tablet by it y of 00:00: 05:59 mouth [place] 00 :00 daily for Medical 30 days. [place] thiamine 2019-04- No [id number] 100mg Take 1 [facility] 100 mg 0-13 11-13 tablet by ity of tablet 00:00: 05:59 mouth [place] 00 :00 daily for Medical 30 days. [place] cholecalcif 2019-04- No [id number] 1000U Take 1 [facility] ester, 0-13 11-13 tablet by ity of vitamin D3, 00:00: 05:59 [place] 25 mcg 00 :00 daily for Medical (1,000 30 days. Branch unit) tablet foLIC acid 2019-04- No [id number] 1mg Take 1 [facility] 1 mg tablet 0-13 11-13 tablet by it y of 00:00: 05:59 mouth [place] 00 :00 daily for Medical 30 days. [place] thiamine 2019-04- No [id number] 100mg Take 1 [facility] 100 mg 0-13 11-13 tablet by ity of tablet 00:00: 05:59 mouth [place] 00 :00 daily for Medical 30 days. [place] cholecalcif 2019-04- No [id number] 1000U Take 1 [facility] ester, 0-13 11-13 tablet by ity of vitamin D3, 00:00: 05:59 [place] 25 mcg 00 :00 daily for Medical (1,000 30 days. Branch unit) tablet foLIC acid 2019-04- No [id number] 1mg Take 1 [facility] 1 mg tablet 0-13 11-13 tablet by it y of 00:00: 05:59 mouth [place] 00 :00 daily for Medical 30 days. [place] thiamine 2019-04- No [id number] 100mg Take 1 [facility] 100 mg 0-13 11-13 tablet by ity of tablet 00:00: 05:59 mouth [place] 00 :00 daily for Medical 30 days. [place] cholecalcif 2019-04- No [id number] 1000U Take 1 [facility] ester, 0-13 11-13 tablet by ity of vitamin D3, 00:00: 05:59 [place] 25 mcg 00 :00 daily for Medical (1,000 30 days. Branch unit) tablet foLIC acid 2019-04- No [id number] 1mg Take 1 [facility] 1 mg tablet 0-13 11-13 tablet by it y of 00:00: 05:59 mouth [place] 00 :00 daily for Medical 30 days. [place] thiamine 2019-04- No [id number] 100mg Take 1 [facility] 100 mg 0-13 11-13 tablet by ity of tablet 00:00: 05:59 mouth [place] 00 :00 daily for Medical 30 days. [place] cholecalcif 2019-04- No [id number] 1000U Take 1 [facility] ester, 0-13 11-13 tablet by ity of vitamin D3, 00:00: 05:59 [place] 25 mcg 00 :00 daily for Medical (1,000 30 days. Branch unit) tablet foLIC acid 2019-04- No [id number] 1mg Take 1 [facility] 1 mg tablet 0-13 11-13 tablet by it y of 00:00: 05:59 mouth [place] 00 :00 daily for Medical 30 days. [place] thiamine 2019-04- No [id number] 100mg Take 1 [facility] 100 mg 0-13 11-13 tablet by ity of tablet 00:00: 05:59 mouth [place] 00 :00 daily for Medical 30 days. [place] cholecalcif 2019-04- No [id number] 1000U Take 1 [facility] ester, 0-13 11-13 tablet by ity of vitamin D3, 00:00: 05:59 [place] 25 mcg 00 :00 daily for Medical (1,000 30 days. Branch unit) tablet foLIC acid 2019-04- No [id number] 1mg Take 1 [facility] 1 mg tablet 0-13 11-13 tablet by it y of 00:00: 05:59 mouth [place] 00 :00 daily for Medical 30 days. [place] thiamine 2019-04- No [id number] 100mg Take 1 [facility] 100 mg 0-13 11-13 tablet by ity of tablet 00:00: 05:59 mouth [place] 00 :00 daily for Medical 30 days. [place] cholecalcif 2019-04- No [id number] 1000U Take 1 [facility] ester, 0-13 11-13 tablet by ity of vitamin D3, 00:00: 05:59 mouth [place] 25 mcg 00 :00 daily for Medical (1,000 30 days. Branch unit) tablet foLIC acid 2019-04- No [id number] 1mg Take 1 [facility] 1 mg tablet 0-13 11-13 tablet by it y of 00:00: 05:59 mouth [place] 00 :00 daily for Medical 30 days. [place] cholecalcif 2019-04- No [id number] 1000U Take 1 [facility] ester, 0-13 11-13 tablet by ity of vitamin D3, 00:00: 05:59 [place] 25 mcg 00 :00 daily for Medical (1,000 30 days. Branch unit) tablet foLIC acid 2019-04- No [id number] 1mg Take 1 [facility] 1 mg tablet 0-13 11-13 tablet by it y of 00:00: 05:59 mouth [place] 00 :00 daily for Medical 30 days. [place] cholecalcif 2019-04- No [id number] 1000U Take 1 [facility] ester, 0-13 11-13 tablet by ity of vitamin D3, 00:00: 05:59 [place] 25 mcg 00 :00 daily for Medical (1,000 30 days. Branch unit) tablet foLIC acid 2019-04- No [id number] 1mg Take 1 [facility] 1 mg tablet 0-13 11-13 tablet by it y of 00:00: 05:59 mouth [place] 00 :00 daily for Medical 30 days. [place] cholecalcif 2019-04- No [id number] 1000U Take 1 [facility] ester, 0-13 11-13 tablet by ity of vitamin D3, 00:00: 05:59 mouth [place] 25 mcg 00 :00 daily for Medical (1,000 30 days. Branch unit) tablet foLIC acid 2019-2019- No [id number] 1mg Take 1 [facility] 1 mg tablet 0-13 11-13 tablet by it y of 00:00: 05:59 mouth [place] 00 :00 daily for Medical 30 days. [place] cholecalcif 2019-04- No [id number] 1000U Take 1 [facility] ester, 0-13 11-13 tablet by ity of vitamin D3, 00:00: 05:59 mouth [place] 25 mcg 00 :00 daily for Medical (1,000 30 days. Branch unit) tablet foLIC acid 2019-2019- No [id number] 1mg Take 1 [facility] 1 mg tablet 0-13 11-13 tablet by it y of 00:00: 05:59 mouth [place] 00 :00 daily for Medical 30 days. [place] cholecalcif 2019-04- No [id number] 1000U Take 1 [facility] ester, 0-13 11-13 tablet by ity of vitamin D3, 00:00: 05:59 mouth [place] 25 mcg 00 :00 daily for Medical (1,000 30 days. Branch unit) tablet foLIC acid 2019-04- No [id number] 1mg Take 1 [facility] 1 mg tablet 0-13 11-13 tablet by it y of 00:00: 05:59 mouth [place] 00 :00 daily for Medical 30 days. [place] cholecalcif 2019-04- No [id number] 1000U Take 1 [facility] ester, 0-13 11-13 tablet by ity of vitamin D3, 00:00: 05:59 mouth [place] 25 mcg 00 :00 daily for Medical (1,000 30 days. Branch unit) tablet foLIC acid 2019-04- No [id number] 1mg Take 1 Univers 1 mg tablet 0-13 11-13 tablet by it y of 00:00: 05:59 mouth [place] 00 :00 daily for Medical 30 days. [place] cholecalcif 2019-04- No [id number] 1000U Take 1 [facility] ester, 0-13 11-13 tablet by ity of vitamin D3, 00:00: 05:59 mouth [place] 25 mcg 00 :00 daily for Medical (1,000 30 days. Branch unit) tablet foLIC acid 2019-04- No [id number] 1mg Take 1 [facility] 1 mg tablet 0-13 11-13 tablet by it y of 00:00: 05:59 mouth [place] 00 :00 daily for Medical 30 days. [place] cholecalcif 2019-04- No [id number] 1000U Take 1 [facility] ester, 0-13 11-13 tablet by ity of vitamin D3, 00:00: 05:59 mouth [place] 25 mcg 00 :00 daily for Medical (1,000 30 days. Branch unit) tablet foLIC acid 2019-04- No [id number] 1mg Take 1 [facility] 1 mg tablet 0-13 11-13 tablet by it y of 00:00: 05:59 mouth [place] 00 :00 daily for Medical 30 days. Branch cholecalcif 2019-04- No [id number] 1000U Take 1 [facility] ester, 0-13 11-13 tablet by ity of vitamin D3, 00:00: 05:59 mouth [place] 25 mcg 00 :00 daily for Medical (1,000 30 days. Branch unit) tablet foLIC acid 2019-04- No [id number] 1mg Take 1 Univers 1 mg tablet 0-13 -13 tablet by it y of 00:00: 05:59 mouth [place] 00 :00 daily for Medical 30 days. Branch thiamine 2019-04- No [id number] 100mg Take 1 [facility] 100 mg 0-13 10-30 tablet by ity of tablet 00:00: 00:00 mouth [place] 00 :00 daily for Medical 30 days. Branch flu vaccine 2019-04- No .5mL 0.5 mL, Un maddie 6 months 0-12 10-12 Intramuscu ity of and up (PF) 19:00: 18:57 lar, ONCE, [place] (FLUZONE 00 :00 1 dose, Medical QUAD Mon Branch 01/11/20 (PF)) at 1400, syringe 0.5 Routine mL KCL 20 2019-04- No [id number] 20meq Take 15 mL Univers mEq/15 mL 0-12 11-12 by mouth ity o f solution 00:00: 05:59 daily for Real as 00 :00 30 days. Medical Branch magnesium 2019-04- No [id number] 400mg Take 400 Univers oxide 420 0-12 11-12 mg by ity of mg Tab 00:00: 05:59 mouth [place] 00 :00 daily for Medical 30 days. Branch KCL 20 2019-04- No [id number] 20meq Take 15 mL Univers mEq/15 mL 0-12 11-12 by mouth ity o f solution 00:00: 05:59 daily for Real as 00 :00 30 days. Medical Branch magnesium 2019-04- No [id number] 400mg Take 400 Univers oxide 420 0-12 11-12 mg by ity of mg Tab 00:00: 05:59 mouth [place] 00 :00 daily for Medical 30 days. Branch KCL 20 2019-04- No [id number] 20meq Take 15 mL Univers mEq/15 mL 0-12 11-12 by mouth ity o f solution 00:00: 05:59 daily for Real as 00 :00 30 days. [facility] magnesium 2019- 2020- No [id number] 400mg Take 400 Univers oxide 420 0-12 11-12 mg by ity of mg Tab 00:00: 05:59 mouth [place] 00 :00 daily for Medical 30 days. Branch KCL 20 2019-04- No [id number] 20meq Take 15 mL Univers mEq/15 mL 0-12 11-12 by mouth ity o f solution 00:00: 05:59 daily for Real as 00 :00 30 days. [facility] magnesium 2019-2019- No [id number] 400mg Take 400 Univers oxide 420 0-12 11-12 mg by ity of mg Tab 00:00: 05:59 mouth [place] 00 :00 daily for Medical 30 days. Branch KCL 20 2019-04- No [id number] 20meq Take 15 mL Univers mEq/15 mL 0-12 11-12 by mouth ity o f solution 00:00: 05:59 daily for Real as 00 :00 30 days. [facility] magnesium 2019-04- No [id number] 400mg Take 400 Univers oxide 420 0-12 11-12 mg by ity of mg Tab 00:00: 05:59 mouth [place] 00 :00 daily for Medical 30 days. Branch KCL 20 2019-04- No [id number] 20meq Take 15 mL Univers mEq/15 mL 0-12 11-12 by mouth ity o f solution 00:00: 05:59 daily for Real as 00 :00 30 days. [facility] magnesium 2019-2019- No [id number] 400mg Take 400 Univers oxide 420 0-12 11-12 mg by ity of mg Tab 00:00: 05:59 mouth [place] 00 :00 daily for Medical 30 days. Branch KCL 20 2019-04- No [id number] 20meq Take 15 mL Univers mEq/15 mL 0-12 11-12 by mouth ity o f solution 00:00: 05:59 daily for Real as 00 :00 30 days. [facility] magnesium 2019-2019- No [id number] 400mg Take 400 Univers oxide 420 0-12 11-12 mg by ity of mg Tab 00:00: 05:59 mouth [place] 00 :00 daily for Medical 30 days. Branch nicotine 14 2019-04- No [id number] 1{patch Apply 1 Univers mg/24 hr 0-12 11-10 } Patch to ity of patch 00:00: 05:59 area(s) [place] 00 :00 every 24 Medical ([facility] Branch ur) hours for 28 days. nicotine 14 2019-04- No [id number] 1{patch Apply 1 Univers mg/24 hr 0-12 11-10 } Patch to ity of patch 00:00: 05:59 area(s) [place] 00 :00 every 24 Medical ([facility] Branch ur) hours for 28 days. nicotine 14 2019-04- No [id number] 1{patch Apply 1 Univers mg/24 hr 0-12 11-10 } Patch to ity of patch 00:00: 05:59 area(s) [place] 00 :00 every 24 Medical ([facility] Branch ur) hours for 28 days. nicotine 14 2019-04- No [id number] 1{patch Apply 1 Univers mg/24 hr 0-12 11-10 } Patch to ity of patch 00:00: 05:59 area(s) [place] 00 :00 every 24 Medical ([facility] Branch ur) hours for 28 days. nicotine 14 2019-04 No [id number] 1{patch Apply 1 Univers mg/24 hr 0-12 11-10 } Patch to ity of patch 00:00: 05:59 area(s) [place] 00 :00 every 24 Medical ([facility] Branch ur) hours for 28 days. nicotine 14 2019-04- No [id number] 1{patch Apply 1 Univers mg/24 hr 0-12 11-10 } Patch to ity of patch 00:00: 05:59 area(s) [place] 00 :00 every 24 Medical ([facility] Branch ur) hours for 28 days. nicotine 14 2019-04- No [id number] 1{patch Apply 1 Univers mg/24 hr 0-12 11-10 } Patch to ity of patch 00:00: 05:59 area(s) [place] 00 :00 every 24 Medical ([facility] Branch ur) hours for 28 days. nicotine 14 2019-04- No [id number] 1{patch Apply 1 Univers mg/24 hr 0-12 11-10 } Patch to ity of patch 00:00: 05:59 area(s) [place] 00 :00 every 24 Medical ([facility] ur) hours for 28 days. nicotine 14 2019-04- No [id number] 1{patch Apply 1 Univers mg/24 hr 0-12 11-10 } Patch to ity of patch 00:00: 05:59 area(s) [place] 00 :00 every 24 Medical [facility] ur) hours for 28 days. nicotine 14 2019-04- No [id number] 1{patch Apply 1 Univers mg/24 hr 0-12 11-10 } Patch to ity of patch 00:00: 05:59 area(s) [place] 00 :00 every 24 Medical ([facility] Branch ur) hours for 28 days. nicotine 14 2019-04- No [id number] 1{patch Apply 1 Univers mg/24 hr 0-12 11-10 } Patch to ity of patch 00:00: 05:59 area(s) [place] 00 :00 every 24 Medical ([facility] Branch ur) hours for 28 days. nicotine 14 2019-04- No [id number] 1{patch Apply 1 Univers mg/24 hr 0-12 11-10 } Patch to ity of patch 00:00: 05:59 area(s) [place] 00 :00 every 24 Medical ([facility] Branch ur) hours for 28 days. nicotine 14 2019-04- No [id number] 1{patch Apply 1 Univers mg/24 hr 0-12 11-10 } Patch to ity of patch 00:00: 05:59 area(s) [place] 00 :00 every 24 Medical ([facility] Branch ur) hours for 28 days. nicotine 14 2019-04- No [id number] 1{patch Apply 1 Univers mg/24 hr 0-12 11-10 } Patch to ity of patch 00:00: 05:59 area(s) [place] 00 :00 every 24 Medical ([facility] Branch ur) hours for 28 days. KCL 20 2019-04- No [id number] 20meq Take 15 mL Univers mEq/15 mL 0-12 10-30 by mouth ity o f solution 00:00: 00:00 daily for Real as 00 :00 30 days. Medical Branch magnesium 2019-04 2020- No [id number] 400mg Take 400 Univers oxide 420 0-12 10-30 mg by ity of mg Tab 00:00: 00:00 mouth [place] 00 :00 daily for Medical 30 days. Branch D5W 0.45% 2019- Yes IV Univers NaCl 0-11 Infusion, ity of (1/2NS) 1 L 15:15: at 75 [place] + KCL 20 00 mL/hr, Medical mEq CONTINUOUS Branch , Starting 01/10/20 at 1015, Until Discontinu ed, Routine loperamide 2019-04 Yes 2mg 2 mg, Univer s (IMODIUM 0-10 Oral, ity of A-D) 18:09: Q4HPRN, [place] capsule 2 48 Starting Medica l mg Sat Branch 01/09/20 at 1309, Until Discontinu ed, Routine, Diarrhea KCL 20 2019-04 Yes 40meq 40 mEq, Univers mEq/15 mL 0-10 Oral, BID, ity of solution 40 17:45: First dose [place] mEq 00 (after Medical last Branch reorder) on 01/09/20 at 1245, Until Discontinu ed, Routine KCL 2019-04 2020- No IV Univers (POTASSIUM 0-09 10-11 Infusion, ity of CHLORIDE) 16:00: 13:59 CONTINUOUS [place] 40 mEq, 00 :47 , Starting Medica l NaCl 76.92 Fri Branch mEq in D10W 01/08/20 at 1,000 mL IV 1100, Solution Until 01/10/20 at 0859, 1,000 mL, at 100 mL/hr cholecalcif 2019-04 Yes 1000U 1,000 Univ ers ester 0-09 Units, ity of (vitamin 14:00: Oral, [place] D3) tablet 00 DAILY, Medical 1,000 Units First dose Br anch on 01/08/20 at 0900, Until Discontinu ed, Routine magnesium 2019-04 2020- No 2g 2 g, IV Univ ers sulfate in 0-09 10-09 Piggyback, it y of water 2 13:45: 17:33 ONCE, 1 [place] gram/50 mL 00 :00 dose, Fri Medi julieta (4 %) 01/08/20 at Branch infusion 2 0845, g Routine magnesium 2019-04 Yes 400mg 400 mg, Univ ers oxide 0-09 Oral, BID, ity of (MAG-OX 11:00: [place] 400) tablet 00 on Sat Medica l 400 mg 01/08/20 at Branch 0600, Until Discontinu ed, Routine potassium 2019-04 2020- No 10meq 10 mEq, IV Univers chloride in 0-09 -09 Piggyback, i ty of water 10 11:00: 17:32 Q1H, 4 [place] mEq/100 mL 00 :00 doses, Medical RTU 10 mEq First dose Bra nch on Sat01/08/20 at 0600, Last dose on Sat01/08/20 at 0900, 100 mL NaCl 0.9% 2019-04 2020- No 1000mL at 125 Uni vers (NS) IV 0-08 10-09 mL/hr, IV ity of infusion 16:30: 13:15 Infusion, Real as 1,000 mL 00 :01 CONTINUOUS Medic al , Starting [facility] 01/07/20 at 1130, Until Sat01/08/20 at 0815, Routine morpHINE 2019-04 Yes 2mg 2 mg, Slow Uni vers injection 2 0-08 IV Push, ity of mg 15:25: Q3HPRN, [place] 47 Starting Medical [facility] 01/07/20 at 1025, Until Discontinu ed, Routine, Pain (scale 7-10) thiamine 2019-04 Yes 100mg 100 mg, Unive rs (VITAMIN 0-08 Oral, ity of B1) tablet 14:00: DAILY, [place] 100 mg 00 First dose Medical on [facility] 01/07/20 at 0900, Until Discontinu ed, Routine foLIC acid 2019-04 Yes 1mg 1 mg, Univer s (FOLATE) 0-08 Oral, ity of tablet 1 mg 14:00: DAILY, [place] 00 First dose Medical on [facility] 01/07/20 at 0900, Until Discontinu ed, Routine KCL 2019-04 2020- No 40meq 40 mEq, Univers (KLOR-CON 0-08 10-08 Oral, ity of M20) tablet 13:45: 13:28 ONCE, 1 [place] 40 mEq 00 :00 dose, [facility] 01/07/20 at Branch 0845, Routine KCL 2019-04 2020- No 40meq 40 mEq, Univers (KLOR-CON 0-07 10-07 Oral, ity of M20) tablet 23:30: 22:33 ONCE, 1 [place] 40 mEq 00 :00 dose, [facility] Medical 01/06/20 at Branch 1830, Routine tc 2019-04- No 9.9mCi 9.9 Univers 99m-mebrofe 0-07 10-07 millicurie i ty of shanti 22:45: 19:30 , [place] injection 00 :00 Intravenou Medi julieta 9.9 s, ONCE, 1 Branch millicurie dose, [facility] 01/06/20 at 1745, Routine sincalide 2019-04- No 1.8ug 1.8 mcg, Un maddie (KINEVAC) 0-07 10-07 IV Push, ity o f injection 22:30: 22:00 ONCE, 1 [place] 1.8 mcg 00 :00 dose, [facility] 01/06/20 at Branch 1745, Routine escitalopra 2019-04 Yes 20mg 20 mg, Univ ers m oxalate 0-07 Oral, ity of (LEXAPRO) 14:00: DAILY, [place] tablet 20 00 First dose Medi julieta mg on [facility] 01/06/20 at 0900, Until Discontinu ed, Routine enoxaparin 2019-04 Yes 40mg 40 mg, Unive rs (LOVENOX) 0-07 Subcutaneo ity of injection 14:00: us, DAILY, [place] 40 mg 00 First dose Medical on [facility] 01/06/20 at 0900, Until Discontinu ed, Routine KCL 20 2019-04- No 40meq 40 mEq, Univer s mEq/15 mL 0-07 10-10 Oral, ity of solution 40 14:00: 17:30 DAILY, Real as mEq 00 :32 First dose Medical on [facility] 01/06/20 at 0900, Until Discontinu ed, KENIA levothyroxi 2019-04 Yes 125ug 125 mcg, U nivers ne 0-07 Oral, ity of (SYNTHROID) 11:00: QAM-0600, [place] tablet 125 00 First dose Med ical mcg on [facility] 01/06/20 at 0600, Until Discontinu ed, Routine potassium 2019-04- No 10meq 10 mEq, IV Univers chloride in 0-07 10-07 Piggyback, i ty of water 10 08:00: 16:21 Q1H, First [place] mEq/100 mL 00 :44 dose Medical RTU 10 mEq (after Branch last reorder) on Sat01/06/20 at 0300, Until Discontinu ed, 100 mL nicotine 2019-04 Yes 1{patch 1 Patch, Un maddie (NICODERM) 0-07 } Topical, ity o f 14 mg/24 hr 03:45: Administer [place] patch 1 00 over 24 Medical Patch Hours, Branch Q24H, First dose on Sat01/05/20 at 2245, Until Discontinu ed, Routine cefTRIAXone 2019-04- No 1000mg 1,000 mg, Univers (ROCEPHIN) 0-07 10-07 IV ity of 1,000 mg in 01:00: 00:55 Piggyback, [place] NaCl 0.9% 00 :00 ONCE, 1 Medical (NS) 50 mL dose, [facility] ch MINI-BAG 01/05/20 at 2000, 50 mL
Reas on for Anti-Infec tive: Documented Infection< br>Documen meng Infection Site: Abdominal< br>Duratio n of Therapy: Other (see Comments) proMETHazin 2019-04- No 25mg 25 mg, IV Univers e 0-07 10-07 Piggyback, ity of (PHENERGAN) 01:00: 01:00 ONCE, 1 [place] 25 mg in 00 :00 dose, Tue Medica l NaCl 0.9% 01/05/20 at [facility] (NS) 50 mL 1999, 50 piggyback mL morpHINE 2019-04- No 4mg 4 mg, Slow Un maddie injection 4 0-07 10-06 IV Push, ity of mg 00:45: 23:55 ONCE, 1 [place] 00 :00 dose, [facility] Medical 01/05/20 at Branch 1945, STAT NaCl 0.9% 2019-04 2020- No 1000mL at 125 Uni vers (NS) IV 0-07 10-08 mL/hr, IV ity of infusion 00:30: 12:35 Infusion, Real as 1,000 mL 00 :42 CONTINUOUS Medic al , Starting Branch Sat01/05/20 at 1930, Until [place] 01/07/20 at 0735, Routine ondansetron 2019-04 Yes 4mg 4 mg, Slow Univers (ZOFRAN 0-07 IV Push, ity of (PF)) 00:14: Q6HPRN, [place] injection 4 44 Starting Medi julieta mg [facility] 01/05/20 at 1914, Until Discontinu ed, Routine, Nausea and Vomiting (N/V) morpHINE 2019-04- No 2mg 2 mg, Slow Un maddie injection 2 0-07 10-08 IV Push, ity of mg 00:14: 00:13 Q3HPRN, [place] 40 :40 Starting Medical [facility] 01/05/20 at 1914, Until 01/06/20 at 1913, Routine, Pain (scale 7-10) acetaminoph 2019-04 Yes 500mg 500 mg, Un maddie en 0-07 Oral, ity of (TYLENOL) 00:14: Q6HPRN, [place] tablet 500 19 Starting Medic al mg [facility] 01/05/20 at 191, Until Discontinu ed, Routine, Pain (scale 1-3) NaCl 0.9% 2019-04 2020- No 1000mL at 999 Uni vers (NS) bolus 0-06 mL/hr, ity of infusion 23:45: 23:09 1,000 mL, Real as 1,000 mL 00 :00 IV Medical Infusion, [place] ONCE, 1 dose, [facility] 01/05/20 at 1845, STAT potassium 2019-04- No 10meq 10 mEq, IV Univers chloride in 001-04 Piggyback, i ty of water 10 23:00: 23:18 ONCE, 1 [place] mEq/100 mL 00 :00 dose, [facility] Medi julieta RTU 10 mEq 01/05/20 at [facility] 1800, 100 mL FENTanyl PF 2019-04 2020- No 50ug 50 mcg, Un maddie (SUBLIMAZE 001-04 Slow IV ity o f (PF)) 22:30: 21:32 Push, [place] injection 00 :00 ONCE, 1 Medical 50 mcg dose, [facility] 01/05/20 at 1730, STAT ondansetron 2019-04 2020- No 4mg 4 mg, Slow Univers (ZOFRAN 001-04 IV Push, ity of (PF)) 22:00: 21:02 ONCE, 1 [place] injection 4 00 :00 dose, e Med ical mg 01/05/20 at Branch 1700, KENIA NaCl 0.9% 2020-1 2020- No 1000mL at 999 Uni vers (NS) bolus 0-06 10-06 mL/hr, ity of infusion 22:00: 23:00 1,000 mL, Real as 1,000 mL 00 :00 IV Medical Infusion, Branch ONCE, 1 dose, 01/05/20 at 1700, STAT famotidine 2019-04 2020- No 20mg 20 mg, IV U nivers (PEPCID 0-06 10- Piggyback, ity o f (PF)) 21:00: 21:00 ONCE, 1 [place] injection 00 :00 dose, Tue Medic al 20 mg 01/05/20 at Branch 1600, KENIA potassium 2020-0 Yes 10meq Take 1 Unive rs chloride 10 9-17 tablet by ity of mEq CR 00:00: mouth 2 [place] tablet 00 (two) Medical times Branch daily. potassium 2020-0 Yes 10meq Take 1 Unive rs chloride 10 9-17 tablet by ity of mEq CR 00:00: mouth 2 [place] tablet 00 (two) Medical times Branch daily. potassium 2020-0 Yes 10meq Take 1 Unive rs chloride 10 9-17 tablet by ity of mEq CR 00:00: mouth 2 [place] tablet 00 (two) Medical times Branch daily. potassium 2020-0 Yes 10meq Take 1 Unive rs chloride 10 9-17 tablet by ity of mEq CR 00:00: mouth 2 [place] tablet 00 (two) Medical times Branch daily. potassium 2020-0 Yes 10meq Take 1 Unive rs chloride 10 9-17 tablet by ity of mEq CR 00:00: mouth 2 [place] tablet 00 (two) Medical times Branch daily. potassium 2020-0 Yes 10meq Take 1 Unive rs chloride 10 9-17 tablet by ity of mEq CR 00:00: mouth 2 [place] tablet 00 (two) Medical times Branch daily. potassium 2020-0 Yes 10meq Take 1 Unive rs chloride 10 9-17 tablet by ity of mEq CR 00:00: mouth 2 [place] tablet 00 (two) Medical times Branch daily. potassium 2020-0 Yes 10meq Take 1 Unive rs chloride 10 9-17 tablet by ity of mEq CR 00:00: mouth 2 [place] tablet 00 (two) Medical times Branch daily. potassium 2020-0 Yes 10meq Take 1 Unive rs chloride 10 9-17 tablet by ity of mEq CR 00:00: mouth 2 [place] tablet 00 (two) Medical times Branch daily. potassium 2019-2019- No 10meq Take 1 Univ ers chloride 10 9-17 10-30 tablet by it y of mEq CR 00:00: 00:00 mouth 2 [place] tablet 00 :00 (two) Medical times Branch daily. clindamycin 2019- 2020- No [id number] 300mg Take 1 Univers 300 mg 3-06 01-11 capsule by ity of capsule 00:00: 04:59 mouth 3 [place] 00 :00 (three) Medical times Branch daily for 7 days. clindamycin 2019-0 2019- No [id number] 300mg Take 1 Univers 300 mg 3-06 01-11 capsule by ity of capsule 00:00: 04:59 mouth 3 [place] 00 :00 (three) Medical times Branch daily for 7 days. clindamycin 2019-2019- No [id number] 300mg Take 1 Univers 300 mg 3-06 01-11 capsule by ity of capsule 00:00: 04:59 mouth 3 [place] 00 :00 (three) Medical times Branch daily for 7 days. clindamycin 2019-0 2019- No [id number] 300mg Take 1 [facility] 300 mg 3-06 01-11 capsule by ity of capsule 00:00: 04:59 mouth 3 [place] 00 :00 (three) Medical times Branch daily for 7 days. clindamycin 2019-2019- No [id number] 300mg Take 1 [facility] 300 mg 2-19 06-03 capsule by ity of capsule 00:00: 05:59 mouth 3 [place] 00 :00 (three) Medical times Branch daily for 10 days. iohexol 2019-0 2019- No 70mL 70 mL, [facility] (OMNIPAQUE 05-20 Intravenou it y of 350 BULK-75 21:15: 20:50 s, ONCE, 1 [place] mL) 00 :00 dose, Wed Medical injection 05/20/19 at Bran ch 70 mL 1515, Routine iohexol 2019-0 2019- No 70mL 70 mL, [facility] (OMNIPAQUE 2-20 05-19 Intravenou it y of 350 BULK-75 21:15: 20:45 s, ONCE, 1 [place] mL) 00 :00 dose, Wed Medical injection 05/20/19 at Bran ch 70 mL 1515, Routine diphenhydrA 2019-2019- No [id number] 25mg Take 1 [facility] MINE 2-19 02-20 tablet by ity of (BENADRYL 00:00: 05:59 mouth once [place] ALLERGY[place] 25 00 :00 now for 1 Med ical mg tablet dose. [place] diphenhydrA 2020- No [id number] 25mg Take 1 [facility] MINE 2-19 02-20 tablet by ity of (BENADRYL 00:00: 05:59 mouth once [place] ALLERGY[place] 25 00 :00 now for 1 Med ical mg tablet dose. Branch diphenhydrA 2019- No [id number] 25mg Take 1 [facility] MINE 2-19 02-20 tablet by ity of (BENADRYL 00:00: 05:59 mouth once [place] ALLERGY[place] 25 00 :00 now for 1 Med ical mg tablet dose. [place] diphenhydrA 2019- No [id number] 25mg Take 1 [facility] MINE 2-19 02-20 tablet by ity of (BENADRYL 00:00: 05:59 mouth once [place] ALLERGY[place] 25 00 :00 now for 1 Med ical mg tablet dose. [place] predniSONE 2020-0 Yes [id number] 50mg Take 1 [facility] 50 mg 2-18 tablet by ity of tablet 00:00: mouth [place] 00 daily. [facility] predniSONE 2020-0 Yes [id number] 50mg Take 1 [facility] 50 mg 2-18 tablet by ity of tablet 00:00: mouth [place] 00 daily. [facility] predniSONE 2020-0 Yes [id number] 50mg Take 1 [facility] 50 mg 2-18 tablet by ity of tablet 00:00: mouth [place] 00 daily. [facility] predniSONE 2020-0 Yes [id number] 50mg Take 1 [facility] 50 mg 2-18 tablet by ity of tablet 00:00: mouth [place] 00 daily. [facility] predniSONE 2020-0 Yes [id number] 50mg Take 1 [facility] 50 mg 2-18 tablet by ity of tablet 00:00: mouth [place] 00 daily. [facility] predniSONE 2020-0 Yes [id number] 50mg Take 1 [facility] 50 mg 2-18 tablet by ity of tablet 00:00: mouth [place] 00 daily. [facility] predniSONE 2020-0 Yes [id number] 50mg Take 1 [facility] 50 mg 2-18 tablet by ity of tablet 00:00: mouth [place] 00 daily. [facility] predniSONE 2020-0 Yes [id number] 50mg Take 1 [facility] 50 mg 2-18 tablet by ity of tablet 00:00: mouth [place] 00 daily. [facility] predniSONE 2020-0 Yes [id number] 50mg Take 1 [facility] 50 mg 2-18 tablet by ity of tablet 00:00: mouth [place] 00 daily. [facility] predniSONE 2020-0 Yes [id number] 50mg Take 1 [facility] 50 mg 2-18 tablet by ity of tablet 00:00: mouth [place] 00 daily. [facility] predniSONE 2020-0 Yes [id number] 50mg Take 1 [facility] 50 mg 2-18 tablet by ity of tablet 00:00: mouth [place] 00 daily. [facility] predniSONE 2020-0 Yes [id number] 50mg Take 1 [facility] 50 mg 2-18 tablet by ity of tablet 00:00: mouth [place] 00 daily. [facility] predniSONE 2020-0 2020- No [id number] 50mg Take 1 [facility] 50 mg 2-18 09-16 tablet by ity of tablet 00:00: 00:00 mouth [place] 00 :00 daily. [facility] predniSONE 2020-0 2020- No [id number] 50mg Take 1 [facility] 50 mg 2-18 09-16 tablet by ity of tablet 00:00: 00:00 mouth [place] 00 :00 daily. [facility] ALPRAZolam 2020-0 2020- No [id number] 2mg Take 1 [facility] 2 mg tablet 2-18 -19 tablet by it y of 00:00: 05:59 mouth once [place] 00 :00 now for 1 Medical dose. [place] predniSONE 2020-0 Yes [id number] 50mg Take 1 [facility] 50 mg 2-10 tablet by ity of tablet 00:00: mouth [place] 00 daily. Medical Prednisone Branch - 50 mg by mouth at 13 hours, 7 hours, and 1 hour before contrast media injection, plus Diphenhydr amine (Benadryl? ) - 50 mg by mouth 1 hour before contrast medium predniSONE 2020-0 Yes [id number] 50mg Take 1 [facility] 50 mg 2-10 tablet by ity of tablet 00:00: mouth [place] 00 daily. Medical Prednisone Branch - 50 mg by mouth at 13 hours, 7 hours, and 1 hour before contrast media injection, plus Diphenhydr amine (Benadryl? ) - 50 mg by mouth 1 hour before contrast medium predniSONE 2020-0 Yes [id number] 50mg Take 1 [facility] 50 mg 2-10 tablet by ity of tablet 00:00: mouth [place] 00 daily. Medical Prednisone Branch - 50 mg by mouth at 13 hours, 7 hours, and 1 hour before contrast media injection, plus Diphenhydr amine (Benadryl? ) - 50 mg by mouth 1 hour before contrast medium predniSONE 2020-0 Yes [id number] 50mg Take 1 [facility] 50 mg 2-10 tablet by ity of tablet 00:00: mouth [place] 00 daily. Medical Prednisone Branch - 50 mg by mouth at 13 hours, 7 hours, and 1 hour before contrast media injection, plus Diphenhydr amine (Benadryl? ) - 50 mg by mouth 1 hour before contrast medium predniSONE 2020-0 Yes [id number] 50mg Take 1 [facility] 50 mg 2-10 tablet by ity of tablet 00:00: mouth [place] 00 daily. Medical Prednisone Branch - 50 mg by mouth at 13 hours, 7 hours, and 1 hour before contrast media injection, plus Diphenhydr amine (Benadryl? ) - 50 mg by mouth 1 hour before contrast medium predniSONE 2020-0 Yes [id number] 50mg Take 1 [facility] 50 mg 2-10 tablet by ity of tablet 00:00: mouth [place] 00 daily. Medical Prednisone Branch - 50 mg by mouth at 13 hours, 7 hours, and 1 hour before contrast media injection, plus Diphenhydr amine (Benadryl? ) - 50 mg by mouth 1 hour before contrast medium predniSONE 2020-0 Yes [id number] 50mg Take 1 [facility] 50 mg 2-10 tablet by ity of tablet 00:00: mouth [place] 00 daily. Medical Prednisone Branch - 50 mg by mouth at 13 hours, 7 hours, and 1 hour before contrast media injection, plus Diphenhydr amine (Benadryl? ) - 50 mg by mouth 1 hour before contrast medium predniSONE 2020-0 Yes [id number] 50mg Take 1 [facility] 50 mg 2-10 tablet by ity of tablet 00:00: mouth [place] 00 daily. Medical Prednisone Branch - 50 mg by mouth at 13 hours, 7 hours, and 1 hour before contrast media injection, plus Diphenhydr amine (Benadryl? ) - 50 mg by mouth 1 hour before contrast medium predniSONE 2020-0 Yes [id number] 50mg Take 1 [facility] 50 mg 2-10 tablet by ity of tablet 00:00: mouth [place] 00 daily. Medical Prednisone Branch - 50 mg by mouth at 13 hours, 7 hours, and 1 hour before contrast media injection, plus Diphenhydr amine (Benadryl? ) - 50 mg by mouth 1 hour before contrast medium predniSONE 2020-0 Yes [id number] 50mg Take 1 [facility] 50 mg 2-10 tablet by ity of tablet 00:00: mouth [place] 00 daily. Medical Prednisone Branch - 50 mg by mouth at 13 hours, 7 hours, and 1 hour before contrast media injection, plus Diphenhydr amine (Benadryl? ) - 50 mg by mouth 1 hour before contrast medium predniSONE 2020-0 Yes [id number] 50mg Take 1 [facility] 50 mg 2-10 tablet by ity of tablet 00:00: mouth [place] 00 daily. Medical Prednisone Branch - 50 mg by mouth at 13 hours, 7 hours, and 1 hour before contrast media injection, plus Diphenhydr amine (Benadryl? ) - 50 mg by mouth 1 hour before contrast medium predniSONE 2020-0 Yes [id number] 50mg Take 1 [facility] 50 mg 2-10 tablet by ity of tablet 00:00: mouth [place] 00 daily. Medical Prednisone Branch - 50 mg by mouth at 13 hours, 7 hours, and 1 hour before contrast media injection, plus Diphenhydr amine (Benadryl? ) - 50 mg by mouth 1 hour before contrast medium predniSONE 2020-0 Yes [id number] 50mg Take 1 [facility] 50 mg 2-10 tablet by ity of tablet 00:00: mouth [place] 00 daily. Medical Prednisone Branch - 50 mg by mouth at 13 hours, 7 hours, and 1 hour before contrast media injection, plus Diphenhydr amine (Benadryl? ) - 50 mg by mouth 1 hour before contrast medium predniSONE 2020-0 Yes [id number] 50mg Take 1 [facility] 50 mg 2-10 tablet by ity of tablet 00:00: mouth [place] 00 daily. Medical Prednisone Branch - 50 mg by mouth at 13 hours, 7 hours, and 1 hour before contrast media injection, plus Diphenhydr amine (Benadryl? ) - 50 mg by mouth 1 hour before contrast medium predniSONE 2020-0 Yes [id number] 50mg Take 1 [facility] 50 mg 2-10 tablet by ity of tablet 00:00: mouth [place] 00 daily. Medical Prednisone Branch - 50 mg by mouth at 13 hours, 7 hours, and 1 hour before contrast media injection, plus Diphenhydr amine (Benadryl? ) - 50 mg by mouth 1 hour before contrast medium predniSONE 2020-0 Yes [id number] 50mg Take 1 [facility] 50 mg 2-10 tablet by ity of tablet 00:00: mouth [place] 00 daily. Medical Prednisone Branch - 50 mg by mouth at 13 hours, 7 hours, and 1 hour before contrast media injection, plus Diphenhydr amine (Benadryl? ) - 50 mg by mouth 1 hour before contrast medium predniSONE 2020-0 Yes [id number] 50mg Take 1 [facility] 50 mg 2-10 tablet by ity of tablet 00:00: mouth [place] 00 daily. Medical Prednisone Branch - 50 mg by mouth at 13 hours, 7 hours, and 1 hour before contrast media injection, plus Diphenhydr amine (Benadryl? ) - 50 mg by mouth 1 hour before contrast medium predniSONE 2020-0 Yes [id number] 50mg Take 1 [facility] 50 mg 2-10 tablet by ity of tablet 00:00: mouth [place] 00 daily. Medical Prednisone Branch - 50 mg by mouth at 13 hours, 7 hours, and 1 hour before contrast media injection, plus Diphenhydr amine (Benadryl? ) - 50 mg by mouth 1 hour before contrast medium predniSONE 2019-0 2020- No [id number] 50mg Take 1 [facility] 50 mg 2-10 -16 tablet by ity of tablet 00:00: 00:00 mouth [place] 00 :00 daily. Medical Prednisone Branch - 50 mg by mouth at 13 hours, 7 hours, and 1 hour before contrast media injection, plus Diphenhydr amine (Benadryl? ) - 50 mg by mouth 1 hour before contrast medium predniSONE 2019-0 2020- No [id number] 50mg Take 1 [facility] 50 mg 2-10 -16 tablet by ity of tablet 00:00: 00:00 mouth [place] 00 :00 daily. Medical Prednisone Branch - 50 mg by mouth at 13 hours, 7 hours, and 1 hour before contrast media injection, plus Diphenhydr amine (Benadryl? ) - 50 mg by mouth 1 hour before contrast medium diphenhydrA 2019-0 2020- No [id number] 50mg Take 2 [facility] MINE 2-10 02-11 tablets by ity of (BENADRYL 00:00: 05:59 mouth once [place] ALLERGY) 25 00 :00 now for 1 Med ical mg tablet dose. Branch Prednisone - 50 mg by mouth at 13 hours, 7 hours, and 1 hour before contrast media injection, plus Diphenhydr amine (Benadryl? ) - 50 mg intravenou sly, intramuscu larly, or by mouth 1 hour before contrast medium ALPRAZolam 2020-0 2020- No [id number] 2mg Take 1 [facility] (XANAX) 2 2-10 -11 tablet by ity of mg tablet 00:00: 05:59 mouth once [place] 00 :00 now for 1 Medical dose. Branch diphenhydrA 2020-0 2020- No [id number] 50mg Take 2 [facility] MINE 2-12 31-11 tablets by ity of (BENADRYL 00:00: 05:59 mouth once [place] ALLERGY) 25 00 :00 now for 1 Med ical mg tablet dose. Branch Prednisone - 50 mg by mouth at 13 hours, 7 hours, and 1 hour before contrast media injection, plus Diphenhydr amine (Benadryl? ) - 50 mg intravenou sly, intramuscu larly, or by mouth 1 hour before contrast medium ALPRAZolam 2020-0 2020- No [id number] 2mg Take 1 [facility] (XANAX) 2 2-12 31-11 tablet by ity of mg tablet 00:00: 05:59 mouth once [place] 00 :00 now for 1 Medical dose. Branch Bifidobacte 2020-0 Yes [id number] 4mg Take 1 [facility] rium 1-28 capsule by ity of Infantis 00:00: mouth [place] (ALIGN) 4 00 daily. Medical mg capsule Branch Bifidobacte 2020-0 Yes [id number] 4mg Take 1 [facility] rium 1-28 capsule by ity of Infantis 00:00: mouth [place] (ALIGN) 4 00 daily. Medical mg capsule Branch Bifidobacte 2020-0 Yes [id number] 4mg Take 1 [facility] rium 1-28 capsule by ity of Infantis 00:00: mouth [place] (ALIGN) 4 00 daily. Medical mg capsule Branch Bifidobacte 2020-0 Yes [id number] 4mg Take 1 [facility] rium 1-28 capsule by ity of [facility] 00:00: mouth [place] (ALIGN) 4 00 daily. Medical mg capsule Branch Bifidobacte 2020-0 Yes [id number] 4mg Take 1 [facility] rium 1-28 capsule by ity of [facility] 00:00: mouth [place] (ALIGN) 4 00 daily. Medical mg capsule Branch Bifidobacte 2020-0 Yes [id number] 4mg Take 1 [facility] rium 1-28 capsule by ity of [facility] 00:00: mouth [place] (ALIGN) 4 00 daily. Medical mg capsule Branch Bifidobacte 2020-0 Yes [id number] 4mg Take 1 [facility] rium 1-28 capsule by ity of [place] 00:00: mouth [place] (ALIGN) 4 00 daily. Medical mg capsule Branch Bifidobacte 2020-0 Yes [id number] 4mg Take 1 [facility] rium 1-28 capsule by ity of [facility] 00:00: mouth [place] (ALIGN) 4 00 daily. Medical mg capsule Branch Bifidobacte 2020-0 Yes [id number] 4mg Take 1 [facility] rium 1-28 capsule by ity of [facility] 00:00: mouth [place] (ALIGN) 4 00 daily. Medical mg capsule Branch Bifidobacte 2020-0 Yes [id number] 4mg Take 1 [facility] rium 1-28 capsule by ity of [facility] 00:00: mouth [place] (ALIGN) 4 00 daily. Medical mg capsule Branch Bifidobacte 2020-0 Yes [id number] 4mg Take 1 [facility] rium 1-28 capsule by ity of [place] 00:00: mouth [place] (ALIGN) 4 00 daily. Medical mg capsule Branch Bifidobacte 2020-0 Yes [id number] 4mg Take 1 [facility] rium 1-28 capsule by ity of [place] 00:00: mouth [place] (ALIGN) 4 00 daily. Medical mg capsule Branch Bifidobacte 2020-0 Yes [id number] 4mg Take 1 [facility] rium 1-28 capsule by ity of [place] 00:00: mouth [place] (ALIGN) 4 00 daily. Medical mg capsule Branch Bifidobacte 2020-0 Yes [id number] 4mg Take 1 [facility] rium 1-28 capsule by ity of [place] 00:00: mouth [place] (ALIGN) 4 00 daily. Medical mg capsule Branch Bifidobacte 2020-0 Yes [id number] 4mg Take 1 [facility] rium 1-28 capsule by ity of [place] 00:00: mouth [place] (ALIGN) 4 00 daily. Medical mg capsule Branch Bifidobacte 2020-0 Yes [id number] 4mg Take 1 [facility] rium 1-28 capsule by ity of [place] 00:00: mouth [place] (ALIGN) 4 00 daily. Medical mg capsule Branch Bifidobacte 2020-0 Yes [id number] 4mg Take 1 [facility] rium 1-28 capsule by ity of [place] 00:00: mouth [place] (ALIGN) 4 00 daily. Medical mg capsule Branch Bifidobacte 2020-0 Yes [id number] 4mg Take 1 [facility] rium 1-28 capsule by ity of [place] 00:00: mouth [place] (ALIGN) 4 00 daily. Medical mg capsule Branch Bifidobacte 2020-0 Yes [id number] 4mg Take 1 [facility] rium 1-28 capsule by ity of [place] 00:00: mouth [place] (ALIGN) 4 00 daily. Medical mg capsule Branch Bifidobacte 2020-0 Yes [id number] 4mg Take 1 [facility] rium 1-28 capsule by ity of [place] 00:00: mouth [place] (ALIGN) 4 00 daily. Medical mg capsule Branch Bifidobacte 2020-0 Yes [id number] 4mg Take 1 [facility] rium 1-28 capsule by ity of [place] 00:00: mouth [place] (ALIGN) 4 00 daily. Medical mg capsule Branch Bifidobacte 2020-0 Yes [id number] 4mg Take 1 [facility] rium 1-28 capsule by ity of [place] 00:00: mouth [place] (ALIGN) 4 00 daily. Medical mg capsule Branch Bifidobacte 2020-0 Yes [id number] 4mg Take 1 [facility] rium 1-28 capsule by ity of [place] 00:00: mouth [place] (ALIGN) 4 00 daily. Medical mg capsule Branch Bifidobacte 2020-0 Yes [id number] 4mg Take 1 [facility] rium 1-28 capsule by ity of [place] 00:00: mouth [place] (ALIGN) 4 00 daily. Medical mg capsule Branch Bifidobacte 2020-0 Yes [id number] 4mg Take 1 [facility] rium 1-28 capsule by ity of [facility] 00:00: mouth [place] (ALIGN) 4 00 daily. Medical mg capsule Branch Bifidobacte 2020-0 Yes [id number] 4mg Take 1 [facility] rium 1-28 capsule by ity of [place] 00:00: mouth [place] (ALIGN) 4 00 daily. Medical mg capsule Branch Bifidobacte 2020-0 Yes [id number] 4mg Take 1 [facility] rium 1-28 capsule by ity of [place] 00:00: mouth [place] (ALIGN) 4 00 daily. Medical mg capsule Branch Bifidobacte 2020-0 Yes [id number] 4mg Take 1 [facility] rium 1-28 capsule by ity of [place] 00:00: mouth [place] (ALIGN) 4 00 daily. Medical mg capsule Branch Bifidobacte 2020-0 Yes [id number] 4mg Take 1 [facility] rium 1-28 capsule by ity of [place] 00:00: mouth [place] (ALIGN) 4 00 daily. Medical mg capsule Branch Bifidobacte 2020-0 Yes [id number] 4mg Take 1 [facility] rium 1-28 capsule by ity of [place] 00:00: mouth [place] (ALIGN) 4 00 daily. Medical mg capsule Branch Bifidobacte 2020-0 Yes [id number] 4mg Take 1 [facility] rium 1-28 capsule by ity of [place] 00:00: mouth [place] (ALIGN) 4 00 daily. Medical mg capsule Branch Bifidobacte 2020-0 Yes [id number] 4mg Take 1 [facility] rium 1-28 capsule by ity of [place] 00:00: mouth [place] (ALIGN) 4 00 daily. Medical mg capsule Branch Bifidobacte 2020-0 Yes [id number] 4mg Take 1 [facility] rium 1-28 capsule by ity of [place] 00:00: mouth [place] (ALIGN) 4 00 daily. Medical mg capsule Branch Bifidobacte 2020-0 Yes [id number] 4mg Take 1 [facility] rium 1-28 capsule by ity of [place] 00:00: mouth [place] (ALIGN) 4 00 daily. Medical mg capsule Branch Bifidobacte 2020-0 Yes [id number] 4mg Take 1 [facility] rium 1-28 capsule by ity of [place] 00:00: mouth [place] (ALIGN) 4 00 daily. Medical mg capsule Branch Bifidobacte 2020-0 Yes [id number] 4mg Take 1 [facility] rium 1-28 capsule by ity of [place] 00:00: mouth [place] (ALIGN) 4 00 daily. Medical mg capsule Branch Bifidobacte 2020-0 Yes [id number] 4mg Take 1 [facility] rium 1-28 capsule by ity of [place] 00:00: mouth [place] (ALIGN) 4 00 daily. Medical mg capsule Branch Bifidobacte 2020-0 Yes [id number] 4mg Take 1 [facility] rium 1-28 capsule by ity of [place] 00:00: mouth [place] (ALIGN) 4 00 daily. Medical mg capsule Branch Bifidobacte 2020-0 Yes [id number] 4mg Take 1 [facility] rium 1-28 capsule by ity of [place] 00:00: mouth [place] (ALIGN) 4 00 daily. Medical mg capsule Branch Bifidobacte 2020-0 Yes [id number] 4mg Take 1 [facility] rium 1-28 capsule by ity of [place] 00:00: mouth [place] (ALIGN) 4 00 daily. Medical mg capsule Branch Bifidobacte 2020-0 Yes [id number] 4mg Take 1 [facility] rium 1-28 capsule by ity of [place] 00:00: mouth [place] (ALIGN) 4 00 daily. Medical mg capsule Branch Bifidobacte 2020-0 Yes [id number] 4mg Take 1 [facility] rium 1-28 capsule by ity of [place] 00:00: mouth [place] (ALIGN) 4 00 daily. Medical mg capsule Branch Bifidobacte 2020-0 Yes [id number] 4mg Take 1 [facility] rium 1-28 capsule by ity of [place] 00:00: mouth [place] (ALIGN) 4 00 daily. Medical mg capsule Branch Bifidobacte 2020-0 2020- No [id number] 4mg Take 1 [facility] rium 1-28 10-30 capsule by ity of [place] 00:00: 00:00 mouth [place] (ALIGN) 4 00 :00 daily. Medical mg capsule Branch clindamycin 2020-0 2020- No [id number] 300mg Take 1 [facility] 300 mg 1-28 02-12 capsule by ity of capsule 00:00: 05:59 mouth 3 [place] 00 :00 (three) Medical times Branch daily for 14 days. clindamycin 2020-0 2020- No [id number] 300mg Take 1 [facility] 300 mg 1-28 02-12 capsule by ity of capsule 00:00: 05:59 mouth 3 [place] 00 :00 (three) Medical times Branch daily for 14 days. clindamycin 2020-0 2020- No [id number] 300mg Take 1 [facility] 300 mg 1-28 02-12 capsule by ity of capsule 00:00: 05:59 mouth 3 [place] 00 :00 (three) Medical times Branch daily for 14 days. clindamycin 2020-0 2020- No [id number] 300mg Take 1 [facility] 300 mg 1-28 02-12 capsule by ity of capsule 00:00: 05:59 mouth 3 [place] 00 :00 (three) Medical times Branch daily for 14 days. clindamycin 2020-0 2020- No [id number] 300mg Take 1 [facility] 300 mg 04-28-12 capsule by ity of capsule 00:00: 05:59 mouth 3 [place] 00 :00 (three) Medical times Branch daily for 14 days. clindamycin 2020-0 2020- No [id number] 300mg Take 1 [facility] 300 mg 04-28-12 capsule by ity of capsule 00:00: 05:59 mouth 3 [place] 00 :00 (three) Medical times Branch daily for 14 days. clindamycin 2020-0 2020- No [id number] 300mg Take 1 [facility] 300 mg 04-28-12 capsule by ity of capsule 00:00: 05:59 mouth 3 [place] 00 :00 (three) Medical times Branch daily for 14 days. clindamycin 2020-0 2020- No [id number] 300mg Take 1 [facility] 300 mg 04-28- capsule by ity of capsule 00:00: 05:59 mouth 3 [place] 00 :00 (three) Medical times Branch daily for 14 days. clindamycin 2020-0 2020- No [id number] 300mg Take 1 [facility] 300 mg 04-28-12 capsule by ity of capsule 00:00: 05:59 mouth 3 [place] 00 :00 (three) Medical times Branch daily for 14 days. clindamycin 2020-0 2020- No [id number] 300mg Take 1 [facility] 300 mg 04-28-12 capsule by ity of capsule 00:00: 05:59 mouth 3 [place] 00 :00 (three) Medical times Branch daily for 14 days. clindamycin 2020-0 2020- No [id number] 300mg Take 1 [facility] 300 mg 04-28-12 capsule by ity of capsule 00:00: 05:59 mouth 3 [place] 00 :00 (three) Medical times Branch daily for 14 days. clindamycin 2020-0 2020- No [id number] 300mg Take 1 [facility] 300 mg 04-28-12 capsule by ity of capsule 00:00: 05:59 mouth 3 [place] 00 :00 (three) Medical times Branch daily for 14 days. clindamycin 2020-0 2020- No [id number] 300mg Take 1 [facility] 300 mg 04-28-12 capsule by ity of capsule 00:00: 05:59 mouth 3 [place] 00 :00 (three) Medical times Branch daily for 14 days. clindamycin 2020-0 2020- No [id number] 300mg Take 1 [facility] 300 mg 04-28 capsule by ity of capsule 00:00: 05:59 mouth 3 [place] 00 :00 (three) Medical times [place] daily for 14 days. clindamycin 2019-0 2020- No [id number] 300mg Take 1 [facility] 300 mg 04-28 capsule by ity of capsule 00:00: 05:59 mouth 3 [place] 00 :00 (three) Medical times [place] daily for 14 days. clindamycin 2019-0 2019- No [id number] 300mg Take 1 [facility] 300 mg 04-28 capsule by ity of capsule 00:00: 05:59 mouth 3 [place] 00 :00 (three) Medical times [place] daily for 14 days. levothyroxi 2020-0 Yes Univer s ne 137 mcg 1-02 ity of tablet 00:00: [place] 00 Medical Branch escitalopra 2020-0 Yes Univer s m oxalate 1-02 ity of 20 mg 00:00: [place] tablet 00 Medical Branch levothyroxi 2020-0 Yes Univer s ne 137 mcg 1-02 ity of tablet 00:00: [place] 00 Medical Branch escitalopra 2020-0 Yes Univer s m oxalate 1-02 ity of 20 mg 00:00: [place] tablet 00 Medical Branch levothyroxi 2020-0 Yes Univer s ne 137 mcg 1-02 ity of tablet 00:00: [place] 00 Medical Branch escitalopra 2020-0 Yes Univer s m oxalate 1-02 ity of 20 mg 00:00: [place] tablet 00 Medical Branch levothyroxi 2020-0 Yes Univer s ne 137 mcg 1-02 ity of tablet 00:00: [place] 00 Medical Branch escitalopra 2020-0 Yes Univer s m oxalate 1-02 ity of 20 mg 00:00: [place] tablet 00 Medical Branch levothyroxi 2020-0 Yes Univer s ne 137 mcg 1-02 ity of tablet 00:00: [place] 00 Medical Branch escitalopra 2020-0 Yes Univer s m oxalate 1-02 ity of 20 mg 00:00: [place] tablet 00 Medical Branch levothyroxi 2020-0 Yes Univer s ne 137 mcg 1-02 ity of tablet 00:00: [place] 00 Medical Branch escitalopra 2020-0 Yes Univer s m oxalate 1-02 ity of 20 mg 00:00: [place] tablet 00 Medical Branch levothyroxi 2020-0 Yes Univer s ne 137 mcg 1-02 ity of tablet 00:00: [place] 00 Medical Branch escitalopra 2020-0 Yes Univer s m oxalate 1-02 ity of 20 mg 00:00: [place] tablet 00 Medical Branch levothyroxi 2020-0 Yes Univer s ne 137 mcg 1-02 ity of tablet 00:00: [place] 00 Medical Branch escitalopra 2020-0 Yes Univer s m oxalate 1- ity of 20 mg 00:00: [place] tablet 00 Medical Branch levothyroxi 2020-0 Yes [place] 137 mcg 1- ity of tablet 00:00: [place] 00 Medical [facility] escitalopra 2020-0 Yes [place] [facility] oxalate 1- ity of 20 mg 00:00: [place] tablet 00 Medical Branch levothyroxi 2020-0 Yes [place] 137 mcg 1- ity of tablet 00:00: [place] 00 Medical Branch escitalopra 2020-0 Yes [place] oxalate 1- ity of 20 mg 00:00: [place] tablet 00 Medical Branch levothyroxi 2020-0 Yes [place] 137 mcg 1-02 ity of tablet 00:00: [place] 00 Medical Branch escitalopra 2020-0 Yes [place] oxalate 1- ity of 20 mg 00:00: [place] tablet 00 Medical Branch levothyroxi 2020-0 Yes Univer s ne 137 mcg 1-02 ity of tablet 00:00: [place] 00 Medical Branch escitalopra 2020-0 Yes Univer s m oxalate 1-02 ity of 20 mg 00:00: [place] tablet 00 Medical Branch levothyroxi 2020-0 Yes Univer s ne 137 mcg 1-02 ity of tablet 00:00: [place] 00 Medical Branch escitalopra 2020-0 Yes Univer s m oxalate 1-02 ity of 20 mg 00:00: [place] tablet 00 Medical Branch levothyroxi 2020-0 Yes Univer s ne 137 mcg 1-02 ity of tablet 00:00: [place] 00 Medical Branch escitalopra 2020-0 Yes Univer s m oxalate 1-02 ity of 20 mg 00:00: [place] tablet 00 Medical Branch levothyroxi 2020-0 Yes [place] 137 mcg 1-02 ity of tablet 00:00: [place] 00 Medical Branch escitalopra 2020-0 Yes [place] [facility] oxalate 1-02 ity of 20 mg 00:00: [place] tablet 00 Medical Branch levothyroxi 2020-0 Yes [place] 137 mcg 1-02 ity of tablet 00:00: [place] 00 Medical Branch escitalopra 2020-0 Yes [place] [facility] oxalate 1-02 ity of 20 mg 00:00: [place] tablet 00 Medical Branch levothyroxi 2020-0 Yes [place] 137 mcg 1-02 ity of tablet 00:00: [place] 00 Medical Branch escitalopra 2020-0 Yes [place] [facility] oxalate 1-02 ity of 20 mg 00:00: [place] tablet 00 Medical Branch levothyroxi 2020-0 Yes [place] 137 mcg 1-02 ity of tablet 00:00: [place] 00 [facility] escitalopra 2020-0 Yes [facility] oxalate 1-02 ity of 20 mg 00:00: [place] tablet 00 [facility] levothyroxi 2020-0 Yes [facility] [place] 137 mcg 1-02 ity of tablet 00:00: [place] 00 [facility] escitalopra 2020-0 Yes [facility] oxalate 1-02 ity of 20 mg 00:00: [place] tablet 00 [facility] levothyroxi 2020-0 Yes [facility] 137 mcg 1-02 ity of tablet 00:00: [place] 00 [facility] escitalopra 2020-0 Yes [facility] oxalate 1-02 ity of 20 mg 00:00: [place] tablet 00 [facility] levothyroxi 2020-0 Yes [facility] [place] 137 mcg 1-02 ity of tablet 00:00: [place] 00 [facility] escitalopra 2020-0 Yes [facility] m oxalate 1-02 ity of 20 mg 00:00: [place] tablet 00 [facility] levothyroxi 2020-0 Yes [facility] [place] 137 mcg 1-02 ity of tablet 00:00: [place] 00 [facility] escitalopra 2020-0 Yes [facility] m oxalate 1-02 ity of 20 mg 00:00: [place] tablet 00 Medical Branch levothyroxi 2020-0 Yes [facility] ne 137 mcg 1-02 ity of tablet 00:00: [place] 00 [facility] escitalopra 2020-0 Yes Univer s m oxalate 1-02 ity of 20 mg 00:00: [place] tablet 00 [facility] levothyroxi 2020-0 Yes Univer s ne 137 mcg 1-02 ity of tablet 00:00: [place] 00 [facility] escitalopra 2020-0 Yes Univer s m oxalate 1-02 ity of 20 mg 00:00: [place] tablet 00 [facility] levothyroxi 2020-0 Yes Univer s ne 137 mcg 1-02 ity of tablet 00:00: [place] 00 [facility] escitalopra 2020-0 Yes Univer s m oxalate 1-02 ity of 20 mg 00:00: [place] tablet 00 [facility] levothyroxi 2020-0 Yes Univer s ne 137 mcg 1- ity of tablet 00:00: [place] 00 [facility] escitalopra 2020-0 Yes Univer s m oxalate 1-02 ity of 20 mg 00:00: [place] tablet 00 [facility] levothyroxi 2020-0 Yes every Unive rs ne 137 mcg 1-02 other day. ity of tablet 00:00: [place] 00 [facility] escitalopra 2020-0 Yes 20mg Take 20 mg Univers m oxalate 1-02 by mouth ity of 20 mg 00:00: daily. [place] tablet 00 Takes at [address] levothyroxi 2020-0 Yes every Unive rs ne 137 mcg 1-02 other day. ity of tablet 00:00: [place] 00 [facility] escitalopra 2020-0 Yes 20mg Take 20 mg Univers m oxalate 1-02 by mouth ity of 20 mg 00:00: daily. [place] tablet 00 Takes at [address] escitalopra 2020-0 Yes 20mg Take 20 mg Univers m oxalate 1-02 by mouth ity of 20 mg 00:00: daily. [place] tablet 00 Takes at [address] escitalopra 2020-0 Yes 20mg Take 20 mg Univers m oxalate 1-02 by mouth ity of 20 mg 00:00: daily. [place] tablet 00 Takes at [address] escitalopra 2020-0 Yes 20mg Take 20 mg Univers m oxalate 1-02 by mouth ity of 20 mg 00:00: daily. [place] tablet 00 Takes at [address] escitalopra 2020-0 Yes 20mg Take 20 mg Univers m oxalate 1-02 by mouth ity of 20 mg 00:00: daily. [place] tablet 00 Takes at [address] escitalopra 2020-0 Yes 20mg Take 20 mg Univers m oxalate 1-02 by mouth ity of 20 mg 00:00: daily. [place] tablet 00 Takes at [address] escitalopra 2019-0 Yes 20mg Take 20 mg Univers m oxalate 1-02 by mouth ity of 20 mg 00:00: daily. [place] tablet 00 Takes at [address] escitalopra 2019-0 Yes 20mg Take 20 mg Univers m oxalate 1-02 by mouth ity of 20 mg 00:00: daily. [place] tablet 00 Takes at [address] escitalopra 0 Yes 20mg Take 20 mg Univers m oxalate 1-02 by mouth ity of 20 mg 00:00: daily. [place] tablet 00 Takes at [address] escitalopra Yes 20mg Take 20 mg Univers m oxalate 1-02 by mouth ity of 20 mg 00:00: daily. [place] tablet 00 Takes at [address] escitalopra 0 Yes 20mg Take 20 mg Univers m oxalate 1-02 by mouth ity of 20 mg 00:00: daily. [place] tablet 00 Takes at [address] escitalopra 0 Yes 20mg Take 20 mg Univers m oxalate 1-02 by mouth ity of 20 mg 00:00: daily. [place] tablet 00 Takes at [address] escitalopra 2019-0 Yes 20mg Take 20 mg Univers m oxalate 1-02 by mouth ity of 20 mg 00:00: daily. [place] tablet 00 Takes at [address] escitalopra 0 Yes 20mg Take 20 mg Univers m oxalate 1-02 by mouth ity of 20 mg 00:00: daily. [place] tablet 00 Takes at [address] levothyroxi 2020-0 Yes Univer s ne 137 mcg 1-02 ity of tablet 00:00: [place] 00 [facility] escitalopra 2020-0 Yes Univer s m oxalate 1-02 ity of 20 mg 00:00: [place] tablet 00 [facility] levothyroxi 2020-0 Yes Univer s ne 137 mcg 1-02 ity of tablet 00:00: [place] 00 [facility] escitalopra 2020-0 Yes [facility] m oxalate 1-02 ity of 20 mg 00:00: [place] tablet 00 [facility] Branch levothyroxi 2020-0 Yes Ky s ne 137 mcg 1-02 ity of tablet 00:00: [place] 00 [facility] escitalopra 2020-0 Yes Univer s m oxalate 1-02 ity of 20 mg 00:00: [place] tablet 00 [facility] levothyroxi 2020-0 Yes [facility] ne 137 mcg 1-02 ity of tablet 00:00: [place] 00 [facility] escitalopra 2020-0 Yes Ky s m oxalate 1-02 ity of 20 mg 00:00: [place] tablet 00 [facility] levothyroxi 2020-0 Yes [facility] ne 137 mcg 1-02 ity of tablet 00:00: [place] 00 [facility] escitalopra 2020-0 Yes Ky s m oxalate 1-02 ity of 20 mg 00:00: [place] tablet 00 [facility] levothyroxi 2020-0 Yes [facility] ne 137 mcg 1-02 ity of tablet 00:00: [place] 00 [facility] escitalopra 2020-0 Yes [facility] m oxalate 1-02 ity of 20 mg 00:00: [place] tablet 00 [facility] levothyroxi 2020-0 Yes [facility] ne 137 mcg 1-02 ity of tablet 00:00: [place] 00 [facility] escitalopra 2020-0 Yes [facility] m oxalate 1-02 ity of 20 mg 00:00: [place] tablet 00 [facility] levothyroxi 2020-0 Yes [facility] ne 137 mcg 1-02 ity of tablet 00:00: [place] 00 [facility] escitalopra 2020-0 Yes [facility] m oxalate 1-02 ity of 20 mg 00:00: [place] tablet 00 [facility] levothyroxi 2020-0 Yes Ky s ne 137 mcg 1-02 ity of tablet 00:00: [place] 00 [facility] escitalopra 2020-0 Yes Ky s m oxalate 1-02 ity of 20 mg 00:00: [place] tablet 00 [facility] Branch levothyroxi 2020-0 Yes Ky s ne 137 mcg 1-02 ity of tablet 00:00: [place] 00 [facility] escitalopra 2020-0 Yes Ky s m oxalate 1-02 ity of 20 mg 00:00: [place] tablet 00 [facility] levothyroxi 2020-0 Yes Univer s ne 137 mcg 1-02 ity of tablet 00:00: [place] 00 [facility] escitalopra 2020-0 Yes [facility] m oxalate 1-02 ity of 20 mg 00:00: [place] tablet 00 [facility] Branch levothyroxi 2020-0 Yes Univer s ne 137 mcg 1-02 ity of tablet 00:00: [place] 00 [facility] escitalopra 2020-0 Yes Ky s m oxalate 1-02 ity of 20 mg 00:00: [place] tablet 00 [facility] levothyroxi 2020-0 Yes Univer s ne 137 mcg 1- ity of tablet 00:00: [place] 00 [facility] escitalopra 2020-0 Yes [facility] m oxalate 1- ity of 20 mg 00:00: [place] tablet 00 [facility] levothyroxi 2020-0 Yes [place] s ne 137 mcg 1- ity of tablet 00:00: [place] 00 [facility] escitalopra 2020-0 Yes [facility] m oxalate 1- ity of 20 mg 00:00: [place] tablet 00 [facility] levothyroxi 2020-0 Yes Ky s ne 137 mcg 1- ity of tablet 00:00: [place] 00 [facility] escitalopra 2020-0 Yes [facility] m oxalate 1-02 ity of 20 mg 00:00: [place] tablet 00 [facility] levothyroxi 2020-0 Yes Ky s ne 137 mcg 1- ity of tablet 00:00: [place] 00 [facility] escitalopra 2020-0 Yes [facility] m oxalate 1-02 ity of 20 mg 00:00: [place] tablet 00 [facility] levothyroxi 2020-0 Yes oTer s ne 137 mcg 1-02 ity of tablet 00:00: [place] 00 [facility] escitalopra 2020-0 Yes Ky s m oxalate 1-02 ity of 20 mg 00:00: [place] tablet 00 [facility] levothyroxi 2020-0 Yes Univer s ne 137 mcg 1-02 ity of tablet 00:00: [place] 00 [facility] escitalopra 2020-0 Yes [facility]ristina [facility] m oxalate 1-02 ity of 20 mg 00:00: [place] tablet 00 [facility] levothyroxi 2020-0 Yes [place] [facility] ne 137 mcg 1-02 ity of tablet 00:00: [place] 00 [facility] escitalopra 2020-0 Yes Univer s m oxalate 1-02 ity of 20 mg 00:00: [place] tablet 00 [facility] levothyroxi 2020-0 Yes Univer s ne 137 mcg 1-02 ity of tablet 00:00: [place] 00 [facility] escitalopra 2020-0 Yes Univer s m oxalate 1-02 ity of 20 mg 00:00: [place] tablet 00 [facility] levothyroxi 2020-0 Yes Univer s ne 137 mcg 1-02 ity of tablet 00:00: [place] 00 [facility] escitalopra 2020-0 Yes Univer s m oxalate 1-02 ity of 20 mg 00:00: [place] tablet 00 [facility] levothyroxi 2020-0 Yes Univer s ne 137 mcg 1- ity of tablet 00:00: [place] 00 [facility] escitalopra 2020-0 Yes Univer s m oxalate 1- ity of 20 mg 00:00: [place] tablet 00 [facility] levothyroxi 2020-0 Yes Univer s ne 137 mcg 1- ity of tablet 00:00: [place] 00 [facility] escitalopra 2020-0 Yes Univer s m oxalate 1- ity of 20 mg 00:00: [place] tablet 00 [facility] levothyroxi 2020-0 Yes Univer s ne 137 mcg 1-02 ity of tablet 00:00: [place] 00 [facility] escitalopra 2020-0 Yes Univer s m oxalate 1- ity of 20 mg 00:00: [place] tablet 00 [facility] levothyroxi 2020-0 Yes Univer s ne 137 mcg 1-02 ity of tablet 00:00: [place] 00 [facility] escitalopra 2020-0 Yes Univer s m oxalate - ity of 20 mg 00:00: [place] tablet 00 [facility] escitalopra 2020-0 2020- No 20mg Take 20 mg Univers m oxalate 04-02 by mouth ity o f 20 mg 00:00: 00:00 daily. [place] tablet 00 :00 Takes at Medical [address] Branch levothyroxi 2020-0 2020- No every Univ ers ne 137 mcg 04-02 other day. it y of tablet 00:00: 00:00 [place] 00 :00 [facility] clindamycin 2019- 2020- No Unive rs 300 mg 05-12 ity of capsule 00:00: 00:00 [place] 00 :00 [facility] Branch clindamycin 2019-1 2020- No Unive rs 300 mg 05-12 ity of capsule 00:00: 00:00 [place] 00 :00 [facility] Branch ibuprofen 2019-1 Yes Univers 800 mg 2-05 ity of tablet 00:00: [place] [address] Medical Branch ibuprofen 2019-1 Yes Univers 800 mg 2-05 ity of tablet 00:00: [place] 00 [facility] ibuprofen 2019-1 Yes Univers 800 mg 2-05 ity of tablet 00:00: [place] 00 [facility] ibuprofen 2019-1 Yes Univers 800 mg 2-05 ity of tablet 00:00: [place] [address] Medical Branch ibuprofen 2019- Yes Univers 800 mg 2-05 ity of tablet 00:00: [place] [address] [facility] Branch ibuprofen 2019- Yes Univers 800 mg 2-05 ity of tablet 00:00: [place] [address] [facility] Branch ibuprofen 2019- Yes Univers 800 mg 2-05 ity of tablet 00:00: [place] [address] [facility] Branch ibuprofen 2019-1 Yes Univers 800 mg 2-05 ity of tablet 00:00: [place] [address] [facility] Branch ibuprofen 2019-1 Yes Univers 800 mg 2-05 ity of tablet 00:00: [place] [address] [facility] Branch ibuprofen 2019-1 Yes Univers 800 mg 2-05 ity of tablet 00:00: [place] [address] [facility] Branch ibuprofen 2019-1 Yes Univers 800 mg 2-05 ity of tablet 00:00: [place] [address] [facility] Branch ibuprofen 2019-1 Yes Univers 800 mg 2-05 ity of tablet 00:00: [place] [address] [facility] Branch ibuprofen 2019-1 Yes Univers 800 mg 2-05 ity of tablet 00:00: [place] 00 [facility] ibuprofen 2019-1 Yes Univers 800 mg 2-05 ity of tablet 00:00: [place] 00 [facility] ibuprofen 2019-1 Yes Univers 800 mg 2-05 ity of tablet 00:00: [place] [address] [facility] Branch ibuprofen 2019-1 Yes Univers 800 mg 2-05 ity of tablet 00:00: [place] [address] [facility] Branch ibuprofen 2019-1 Yes Univers 800 mg 2-05 ity of tablet 00:00: [place] [address] [facility] Branch ibuprofen 2019-1 Yes Univers 800 mg 2-05 ity of tablet 00:00: [place] [address] [facility] Branch ibuprofen 2019-1 Yes Univers 800 mg 2-05 ity of tablet 00:00: [place] [address] [facility] Branch ibuprofen 2019-1 Yes Univers 800 mg 2-05 ity of tablet 00:00: [place] [facility] ibuprofen 2019- Yes Univers 800 mg 2-05 ity of tablet 00:00: [place] [facility] ibuprofen 2019- Yes Univers 800 mg 2-05 ity of tablet 00:00: [place] [facility] ibuprofen 2019- Yes Univers 800 mg 2-05 ity of tablet 00:00: [place] [address] [facility] Branch ibuprofen 2019- Yes Univers 800 mg 2-05 ity of tablet 00:00: [place] [facility] ibuprofen 2019- Yes Univers 800 mg 2-05 ity of tablet 00:00: [place] [facility] ibuprofen 2019- Yes Univers 800 mg 2-05 ity of tablet 00:00: [place] [address] Medical Branch ibuprofen 2019- Yes Univers 800 mg 2-05 ity of tablet 00:00: [place] [address] [facility] Branch ibuprofen 2019- Yes Univers 800 mg 2-05 ity of tablet 00:00: [place] [address] [facility] Branch ibuprofen 2019- Yes Univers 800 mg 2-05 ity of tablet 00:00: [place] [facility] ibuprofen 2019- Yes Univers 800 mg 2-05 ity of tablet 00:00: [place] [facility] ibuprofen 2019- Yes Univers 800 mg 2-05 ity of tablet 00:00: [place] [address] [facility] Branch ibuprofen 2019- Yes Univers 800 mg 2-05 ity of tablet 00:00: [place] [facility] ibuprofen 2019- Yes Univers 800 mg 2-05 ity of tablet 00:00: [place] [address] [facility] Branch ibuprofen 2019- Yes Univers 800 mg 2-05 ity of tablet 00:00: [place] [facility] ibuprofen 2019- Yes [facility] 800 mg 2-05 ity of tablet 00:00: [place] [facility] ibuprofen 2019- Yes Univers 800 mg 2-05 ity of tablet 00:00: [place] [facility] ibuprofen 2019- Yes Univers 800 mg 2-05 ity of tablet 00:00: [place] [address] [facility] Branch ibuprofen 2019- Yes [facility] 800 mg 2-05 ity of tablet 00:00: [place] [facility] ibuprofen 2019- Yes Univers 800 mg 2-05 ity of tablet 00:00: [place] [address] [facility] Branch ibuprofen 2019- Yes Univers 800 mg 2-05 ity of tablet 00:00: [place] [address] [facility] Branch ibuprofen 2019- Yes Univers 800 mg 2-05 ity of tablet 00:00: [place] 00 [facility] ibuprofen 2019- 2020- No Univers 800 mg 2-05 11-02 ity of tablet 00:00: 00:00 [place] 00 :00 Medical [facility] nicotine 21 2019-1 Yes Univer s mg/24 hr 1-12 ity of patch 00:00: [place] 00 [facility] nicotine 21 2019-1 Yes Univer s mg/24 hr 1-12 ity of patch 00:00: [place] 00 [facility] nicotine 21 2019-1 Yes Univer s mg/24 hr 1-12 ity of patch 00:00: [place] [facility] nicotine 21 2019-1 Yes Univer s mg/24 hr 1-12 ity of patch 00:00: [place] 00 [facility] nicotine 21 2019-1 Yes Univer s mg/24 hr 1-12 ity of patch 00:00: [place] [facility] nicotine 21 2019-1 Yes Univer s mg/24 hr 1-12 ity of patch 00:00: [place] 00 [facility] nicotine 21 2019-1 Yes Univer s mg/24 hr 1-12 ity of patch 00:00: [place] 00 [facility] nicotine 21 2019-1 Yes Univer s mg/24 hr 1-12 ity of patch 00:00: [place] [facility] nicotine 21 2019-1 Yes Univer s mg/24 hr 1-12 ity of patch 00:00: [place] 00 [facility] nicotine 21 2019-1 Yes Univer s mg/24 hr 1-12 ity of patch 00:00: [place] 00 [facility] nicotine 21 2019-1 Yes Univer s mg/24 hr 1-12 ity of patch 00:00: [place] 00 [facility] nicotine 21 2019-1 Yes Univer s mg/24 hr 1-12 ity of patch 00:00: [place] 00 [facility] nicotine 21 2019-1 Yes Univer s mg/24 hr 1-12 ity of patch 00:00: [place] 00 [facility] nicotine 21 2019-1 Yes Univer s mg/24 hr 1-12 ity of patch 00:00: [place] 00 [facility] nicotine 21 2019-1 Yes Univer s mg/24 hr 1-12 ity of patch 00:00: [place] 00 [facility] nicotine 21 2019-1 Yes Univer s mg/24 hr 1-12 ity of patch 00:00: [place] 00 [facility] nicotine 21 2019-1 Yes Univer s mg/24 hr 1-12 ity of patch 00:00: [place] 00 [facility] nicotine 21 2019-1 Yes Univer s mg/24 hr 1-12 ity of patch 00:00: [place] 00 [facility] nicotine 21 2019-1 Yes Univer s mg/24 hr 1-12 ity of patch 00:00: [place] 00 [facility] nicotine 21 2019-1 Yes Univer s mg/24 hr 1-12 ity of patch 00:00: [place] 00 [facility] nicotine 21 2019-1 Yes Univer s mg/24 hr 1-12 ity of patch 00:00: [place] 00 [facility] nicotine 21 2019-1 Yes Univer s mg/24 hr 1-12 ity of patch 00:00: [place] 00 [facility] nicotine 21 2019-1 Yes Univer s mg/24 hr 1-12 ity of patch 00:00: [place] 00 [facility] nicotine 21 2019-1 Yes Univer s mg/24 hr 1-12 ity of patch 00:00: [place] 00 [facility] nicotine 21 2019-1 Yes Univer s mg/24 hr 1-12 ity of patch 00:00: [place] 00 [facility] nicotine 21 2019-1 Yes Univer s mg/24 hr 1-12 ity of patch 00:00: [place] 00 [facility] nicotine 21 2019-1 Yes Univer s mg/24 hr 1-12 ity of patch 00:00: [place] 00 [facility] nicotine 21 2019-1 2020- No Unive rs mg/24 hr -03 09-16 ity of patch 00:00: 00:00 [place] 00 :00 [facility] nicotine 21 2019-1 2020- No Unive rs mg/24 hr 04-12-16 ity of patch 00:00: 00:00 [place] 00 :00 [facility] Branch furosemide 2019-0 Yes [id number] 20mg Take 1 U nivers 20 mg 6-15 tablet by ity of tablet 00:00: mouth [place] 00 every Medical morning. Branch furosemide 2019- 2020- No [id number] 20mg Take 1 Univers 20 mg 6-15 02-06 tablet by ity of tablet 00:00: 00:00 mouth [place] 00 :00 every Medical morning. Branch furosemide 2019-0 2020- No [id number] 20mg Take 1 Univers 20 mg 6-15 02-06 tablet by ity of tablet 00:00: 00:00 mouth [place] 00 :00 every Medical morning. Branch furosemide 2019- 2020- No [id number] 20mg Take 1 Univers 20 mg 6-15 02-06 tablet by ity of tablet 00:00: 00:00 mouth [place] 00 :00 every Medical morning. Branch furosemide 2020- No [id number] 20mg Take 1 Univers 20 mg 6-15 02-06 tablet by ity of tablet 00:00: 00:00 mouth [place] 00 :00 every Medical morning. Branch furosemide 2020- No [id number] 20mg Take 1 Univers 20 mg 6-15 02-06 tablet by ity of tablet 00:00: 00:00 mouth [place] 00 :00 every Medical morning. Branch furosemide 2020- No [id number] 20mg Take 1 Univers 20 mg 6-15 02-06 tablet by ity of tablet 00:00: 00:00 mouth [place] 00 :00 every Medical morning. Branch furosemide 2020- No [id number] 20mg Take 1 Univers 20 mg 6-15 02-06 tablet by ity of tablet 00:00: 00:00 mouth [place] 00 :00 every Medical morning. Branch gabapentin Yes [id number] 100mg Take 1 Univers 100 mg 5-22 capsule by ity of capsule 00:00: mouth 3 [place] 00 (three) Medical times Branch daily. HYDROcodone Yes [id number] 1{tbl} Take 1 Univers -acetaminop 5-22 tablet by ity of hen 10-325 00:00: mouth [place] mg tablet 00 every 6 Medical (six) Branch hours as needed for Pain (scale 4-6). gabapentin 2020- No [id number] 100mg Take 1 [facility] 100 mg 5-22 02-06 capsule by ity of capsule 00:00: 00:00 mouth 3 [place] 00 :00 (three) Medical times Branch daily. HYDROcodone 2020- No [id number] 1{tbl} Take 1 Univers -acetaminop 5-22 02-06 tablet by it y of hen 10-325 00:00: 00:00 mouth [place] mg tablet 00 :00 every 6 Medical (six) Branch hours as needed for Pain (scale 4-6). gabapentin 2020- No [id number] 100mg Take 1 Univers 100 mg 5-22 02-06 capsule by ity of capsule 00:00: 00:00 mouth 3 [place] 00 :00 (three) Medical times Branch daily. HYDROcodone 20190 2020- No [id number] 1{tbl} Take 1 Univers -acetaminop 5-22 02-06 tablet by it y of hen 10-325 00:00: 00:00 mouth [place] mg tablet 00 :00 every 6 Medical (six) Branch hours as needed for Pain (scale 4-6). gabapentin 2019- No [id number] 100mg Take 1 Univers 100 mg 5-22 02-06 capsule by ity of capsule 00:00: 00:00 mouth 3 [place] 00 :00 (three) Medical times Branch daily. HYDROcodone 2019- No [id number] 1{tbl} Take 1 Univers -acetaminop 5-22 02-06 tablet by it y of hen 10-325 00:00: 00:00 mouth [place] mg tablet 00 :00 every 6 Medical (six) Branch hours as needed for Pain (scale 4-6). gabapentin 2019- No [id number] 100mg Take 1 Univers 100 mg 5-22 02-06 capsule by ity of capsule 00:00: 00:00 mouth 3 [place] 00 :00 (three) Medical times Branch daily. HYDROcodone 2019- No [id number] 1{tbl} Take 1 Univers -acetaminop 5-22 02-06 tablet by it y of hen 10-325 00:00: 00:00 mouth [place] mg tablet 00 :00 every 6 Medical (six) Branch hours as needed for Pain (scale 4-6). gabapentin 2019- No [id number] 100mg Take 1 Univers 100 mg 5-22 02-06 capsule by ity of capsule 00:00: 00:00 mouth 3 [place] 00 :00 (three) Medical times Branch daily. HYDROcodone 2019- No [id number] 1{tbl} Take 1 Univers -acetaminop 5-22 02-06 tablet by it y of hen 10-325 00:00: 00:00 mouth [place] mg tablet 00 :00 every 6 Medical (six) Branch hours as needed for Pain (scale 4-6). gabapentin 2019- No [id number] 100mg Take 1 Univers 100 mg 5-22 02-06 capsule by ity of capsule 00:00: 00:00 mouth 3 [place] 00 :00 (three) Medical times Branch daily. HYDROcodone 2019- No [id number] 1{tbl} Take 1 Univers -acetaminop 5-22 02-06 tablet by it y of hen 10-325 00:00: 00:00 mouth [place] mg tablet 00 :00 every 6 Medical (six) Branch hours as needed for Pain (scale 4-6). gabapentin 2019- No [id number] 100mg Take 1 Univers 100 mg -23 05-06 capsule by ity of capsule 00:00: 00:00 mouth 3 [place] 00 :00 (three) Medical times Branch daily. HYDROcodone 2019- No [id number] 1{tbl} Take 1 Univers -acetaminop 5- 02-06 tablet by it y of hen 10-325 00:00: 00:00 mouth [place] mg tablet 00 :00 every 6 Medical (six) Branch hours as needed for Pain (scale 4-6). ipratropium 2019- No 3mL Inhale 3 U nivers -albuterol 3-23 03-18 mL. ity of 0.5 mg-3 00:00: 04:59 [place] mg(2.5 mg 00 :00 Medical base)/3 mL Branch nebulizer solution ipratropium 2019- No 3mL Inhale 3 U nivers -albuterol 3-23 03-18 mL. ity of 0.5 mg-3 00:00: 04:59 [place] mg(2.5 mg 00 :00 Medical base)/3 mL Branch nebulizer solution ipratropium 2019- No 3mL Inhale 3 U nivers -albuterol 3-23 03-18 mL. ity of 0.5 mg-3 00:00: 04:59 [place] mg(2.5 mg 00 :00 Medical base)/3 mL Branch nebulizer solution ipratropium 2020- No 3mL Inhale 3 U nivers -albuterol 3-23 03-18 mL. ity of 0.5 mg-3 00:00: 04:59 [place] mg(2.5 mg 00 :00 Medical base)/3 mL Branch nebulizer solution ipratropium 2019- No 3mL Inhale 3 U nivers -albuterol 3-23 03-18 mL. ity of 0.5 mg-3 00:00: 04:59 [place] mg(2.5 mg 00 :00 Medical base)/3 mL Branch nebulizer solution ipratropium 2020- No 3mL Inhale 3 U nivers -albuterol 06-21 03-18 mL. ity of 0.5 mg-3 00:00: 04:59 [place] mg(2.5 mg 00 :00 Medical base)/3 mL Branch nebulizer solution ipratropium 2019- No 3mL Inhale 3 U nivers -albuterol 323 03-18 mL. ity of 0.5 mg-3 00:00: 04:59 [place] mg(2.5 mg 00 :00 Medical base)/3 mL Branch nebulizer solution ipratropium 2020- No 3mL Inhale 3 U nivers -albuterol 06-21 03-18 mL. ity of 0.5 mg-3 00:00: 04:59 [place] mg(2.5 mg 00 :00 Medical base)/3 mL Branch nebulizer solution ipratropium 2020- No 3mL Inhale 3 U nivers -albuterol 3 03-18 mL. ity of 0.5 mg-3 00:00: 04:59 [place] mg(2.5 mg 00 :00 Medical base)/3 mL Branch nebulizer solution ipratropium 2019- No 3mL Inhale 3 U nivers -albuterol 06-21 03-18 mL. ity of 0.5 mg-3 00:00: 04:59 [place] mg(2.5 mg 00 :00 Medical base)/3 mL Branch nebulizer solution ipratropium 2019- No 3mL Inhale 3 U nivers -albuterol 06-21 03-18 mL. ity of 0.5 mg-3 00:00: 04:59 [place] mg(2.5 mg 00 :00 Medical base)/3 mL Branch nebulizer solution ipratropium 2020- No 3mL Inhale 3 U nivers -albuterol 323 03-18 mL. ity of 0.5 mg-3 00:00: 04:59 [place] mg(2.5 mg 00 :00 Medical base)/3 mL Branch nebulizer solution ipratropium 2019- No 3mL Inhale 3 U nivers -albuterol 3-23 03-18 mL. ity of 0.5 mg-3 00:00: 04:59 [place] mg(2.5 mg 00 :00 Medical base)/3 mL Branch nebulizer solution ipratropium 2019- No 3mL Inhale 3 U nivers -albuterol 3-23 03-18 mL. ity of 0.5 mg-3 00:00: 04:59 [place] mg(2.5 mg 00 :00 Medical base)/3 mL Branch nebulizer solution ipratropium 2019- No 3mL Inhale 3 U nivers -albuterol 3-23 03-18 mL. ity of 0.5 mg-3 00:00: 04:59 [place] mg(2.5 mg 00 :00 Medical base)/3 mL Branch nebulizer solution ipratropium 2019- No 3mL Inhale 3 U nivers -albuterol 3-23 03-18 mL. ity of 0.5 mg-3 00:00: 04:59 [place] mg(2.5 mg 00 :00 Medical base)/3 mL Branch nebulizer solution ipratropium 2019- No 3mL Inhale 3 U nivers -albuterol 323 03-18 mL. ity of 0.5 mg-3 00:00: 04:59 [place] mg(2.5 mg 00 :00 Medical base)/3 mL Branch nebulizer solution ipratropium 2019- No 3mL Inhale 3 U nivers -albuterol 3-23 03-18 mL. ity of 0.5 mg-3 00:00: 04:59 [place] mg(2.5 mg 00 :00 Medical base)/3 mL Branch nebulizer solution ipratropium 2019- No 3mL Inhale 3 U nivers -albuterol 3-23 03-18 mL. ity of 0.5 mg-3 00:00: 04:59 [place] mg(2.5 mg 00 :00 Medical base)/3 mL Branch nebulizer solution ipratropium 2019- No 3mL Inhale 3 U nivers -albuterol 3-23 03-18 mL. ity of 0.5 mg-3 00:00: 04:59 [place] mg(2.5 mg 00 :00 Medical base)/3 mL Branch nebulizer solution ipratropium 2020- No 3mL Inhale 3 U nivers -albuterol 3-23 03-18 mL. ity of 0.5 mg-3 00:00: 04:59 [place] mg(2.5 mg 00 :00 Medical base)/3 mL Branch nebulizer solution ipratropium 2020- No 3mL Inhale 3 U nivers -albuterol 3-23 03-18 mL. ity of 0.5 mg-3 00:00: 04:59 [place] mg(2.5 mg 00 :00 Medical base)/3 mL Branch nebulizer solution ipratropium 2020- No 3mL Inhale 3 U nivers -albuterol 3-23 03-18 mL. ity of 0.5 mg-3 00:00: 04:59 [place] mg(2.5 mg 00 :00 [facility])/3 mL Branch nebulizer solution ipratropium 2020- No 3mL Inhale 3 U nivers -albuterol 3-23 03-18 mL. ity of 0.5 mg-3 00:00: 04:59 [place] mg(2.5 mg 00 :00 [facility])/3 mL Branch nebulizer solution ALPRAZolam 2017-04 Yes Take 2 mg Un maddie (XANAX) 2 - before MRI ity of mg tablet 00:00: testing [place] 00 [facility] ALPRAZolam 2017-04 2020- No Take 2 mg U nivers (XANAX) 2 04-20- before MRI [place] mg tablet 00:[place] [facility] ALPRAZolam 2017-04 2020- No Take 2 mg U nivers (XANAX) 2 04-20- before MRI it[place] mg tablet 00:00[place] [facility] ALPRAZolam 2017-04 2020- No Take 2 mg U nivers (XANAX) 2 04-20- before MRI ity [place] mg tablet 00:00[place] [facility] ALPRAZolam 2017-04 2020- No Take 2 mg U nivers (XANAX) 2 04-20- before MRI [place] mg [place] [facility] Take [facility] mg U nivers (XANAX) 2 -21 05- before MRI ity [place] mg tablet 00:00[place] [facility] 2017-04- No Take 2 mg U nivers (XANAX) 2 04-20- before MRI [place] mg tablet 00:[place] [facility] Take 2 mg U nivers (XANAX) 2 04-20- before MRI ity [place] mg tablet 00:00[place]00 [facility] BuPROPion BuPROPion Yes Chandrakant [address] [facility] HCl ER HCl ER 12-16 [facility] ([facility] (Smoking 00:00: morning Me moria Det) Det) [facility] ALBUTEROL Yes 2{puff} Inhale 2 U nivers 90 9-21 Puffs ity of mcg/actuati 00:00: every 6 [place] on inhaler 00 (six) Medical hours as Branch needed for Wheezing or Shortness of Breath. ALBUTEROL Yes 2{puff} Inhale 2 U nivers 90 9-21 Puffs ity of mcg/actuati 00:00: every 6 [place] on inhaler 00 (six) Medical hours as Branch needed for Wheezing or Shortness of Breath. ALBUTEROL Yes 2{puff} Inhale 2 U nivers 90 9-21 Puffs ity of mcg/actuati 00:00: every 6 [place] on inhaler 00 (six) Medical hours as Branch needed for Wheezing or Shortness of Breath. ALBUTEROL Yes 2{puff} Inhale 2 U nivers 90 9-21 Puffs ity of mcg/actuati 00:00: every 6 [place] on inhaler 00 (six) Medical hours as Branch needed for Wheezing or Shortness of Breath. ALBUTEROL Yes 2{puff} Inhale 2 U nivers 90 9-21 Puffs ity of mcg/actuati 00:00: every 6 [place] on inhaler 00 (six) Medical hours as Branch needed for Wheezing or Shortness of Breath. ALBUTEROL Yes 2{puff} Inhale 2 U nivers 90 9-21 Puffs ity of mcg/actuati 00:00: every 6 [place] on inhaler 00 (six) Medical hours as Branch needed for Wheezing or Shortness of Breath. ALBUTEROL Yes 2{puff} Inhale 2 U nivers 90 9-21 Puffs ity of mcg/actuati 00:00: every 6 [place] on inhaler 00 (six) Medical hours as Branch needed for Wheezing or Shortness of Breath. ALBUTEROL Yes 2{puff} Inhale 2 U nivers 90 9-21 Puffs ity of mcg/actuati 00:00: every 6 [place] on inhaler 00 (six) Medical hours as Branch needed for Wheezing or Shortness of Breath. ALBUTEROL Yes 2{puff} Inhale 2 U nivers 90 9-21 Puffs ity of mcg/actuati 00:00: every 6 [place] on inhaler 00 (six) Medical hours as Branch needed for Wheezing or Shortness of Breath. ALBUTEROL Yes 2{puff} Inhale 2 U nivers 90 9-21 Puffs ity of mcg/actuati 00:00: every 6 [place] on inhaler 00 (six) Medical hours as Branch needed for Wheezing or Shortness of Breath. ALBUTEROL Yes 2{puff} Inhale 2 U nivers 90 9-21 Puffs ity of mcg/actuati 00:00: every 6 [place] on inhaler 00 (six) Medical hours as Branch needed for Wheezing or Shortness of Breath. ALBUTEROL Yes 2{puff} Inhale 2 U nivers 90 9-21 Puffs ity of mcg/actuati 00:00: every 6 [place] on inhaler 00 (six) Medical hours as Branch needed for Wheezing or Shortness of Breath. ALBUTEROL 0 Yes 2{puff} Inhale 2 U nivers 90 9-21 Puffs ity of mcg/actuati 00:00: every 6 [place] on inhaler 00 (six) Medical hours as Branch needed for Wheezing or Shortness of Breath. ALBUTEROL 0 Yes 2{puff} Inhale 2 U nivers 90 9-21 Puffs ity of mcg/actuati 00:00: every 6 [place] on inhaler 00 (six) Medical hours as Branch needed for Wheezing or Shortness of Breath. ALBUTEROL Yes 2{puff} Inhale 2 U nivers 90 9-21 Puffs ity of mcg/actuati 00:00: every 6 [place] on inhaler 00 (six) Medical hours as Branch needed for Wheezing or Shortness of Breath. ALBUTEROL Yes 2{puff} Inhale 2 U nivers 90 9-21 Puffs ity of mcg/actuati 00:00: every 6 [place] on inhaler 00 (six) Medical hours as Branch needed for Wheezing or Shortness of Breath. ALBUTEROL Yes 2{puff} Inhale 2 U nivers 90 9-21 Puffs ity of mcg/actuati 00:00: every 6 [place] on inhaler 00 (six) Medical hours as Branch needed for Wheezing or Shortness of Breath. ALBUTEROL Yes 2{puff} Inhale 2 U nivers 90 9-21 Puffs ity of mcg/actuati 00:00: every 6 [place] on inhaler 00 (six) Medical hours as Branch needed for Wheezing or Shortness of Breath. fexofenadin Yes 180mg Take 1 Uni vers e (KAYLEIGH 9-21 tablet by ity of ALLERGY) 00:00: mouth [place] 180 mg 00 daily. Medical tablet Branch PREDNISONE Yes 20mg Take 1 Unive rs 20 mg 9-21 tablet by ity of tablet 00:00: mouth 2 [place] 00 (two) Medical times Branch daily. ALBUTEROL Yes 2{puff} Inhale 2 U nivers 90 9-21 Puffs ity of mcg/actuati 00:00: every 6 [place] on inhaler 00 (six) Medical hours as Branch needed for Wheezing or Shortness of Breath. ALBUTEROL Yes 2{puff} Inhale 2 U nivers 90 9-21 Puffs ity of mcg/actuati 00:00: every 6 [place] on inhaler 00 (six) Medical hours as Branch needed for Wheezing or Shortness of Breath. ALBUTEROL Yes 2{puff} Inhale 2 U nivers 90 9-21 Puffs ity of mcg/actuati 00:00: every 6 [place] on inhaler 00 (six) Medical hours as Branch needed for Wheezing or Shortness of Breath. ALBUTEROL 2016- Yes 2{puff} Inhale 2 U nivers 90 9-21 Puffs ity of mcg/actuati 00:00: every 6 [place] on inhaler 00 (six) Medical hours as Branch needed for Wheezing or Shortness of Breath. ALBUTEROL Yes 2{puff} Inhale 2 U nivers 90 9-21 Puffs ity of mcg/actuati 00:00: every 6 [place] on inhaler 00 (six) Medical hours as Branch needed for Wheezing or Shortness of Breath. ALBUTEROL Yes 2{puff} Inhale 2 U nivers 90 9-21 Puffs ity of mcg/actuati 00:00: every 6 [place] on inhaler 00 (six) Medical hours as Branch needed for Wheezing or Shortness of Breath. ALBUTEROL Yes 2{puff} Inhale 2 U nivers 90 9-21 Puffs ity of mcg/actuati 00:00: every 6 [place] on inhaler 00 (six) Medical hours as Branch needed for Wheezing or Shortness of Breath. ALBUTEROL 0 Yes 2{puff} Inhale 2 U nivers 90 9-21 Puffs ity of mcg/actuati 00:00: every 6 [place] on inhaler 00 (six) Medical hours as Branch needed for Wheezing or Shortness of Breath. ALBUTEROL Yes 2{puff} Inhale 2 U nivers 90 9-21 Puffs ity of mcg/actuati 00:00: every 6 [place] on inhaler 00 (six) Medical hours as Branch needed for Wheezing or Shortness of Breath. ALBUTEROL 0 Yes 2{puff} Inhale 2 U nivers 90 9-21 Puffs ity of mcg/actuati 00:00: every 6 [place] on inhaler 00 (six) Medical hours as Branch needed for Wheezing or Shortness of Breath. ALBUTEROL Yes 2{puff} Inhale 2 U nivers 90 9-21 Puffs ity of mcg/actuati 00:00: every 6 [place] on inhaler 00 (six) Medical hours as Branch needed for Wheezing or Shortness of Breath. ALBUTEROL Yes 2{puff} Inhale 2 U nivers 90 9-21 Puffs ity of mcg/actuati 00:00: every 6 [place] on inhaler 00 (six) Medical hours as Branch needed for Wheezing or Shortness of Breath. ALBUTEROL Yes 2{puff} Inhale 2 U nivers 90 9-21 Puffs ity of mcg/actuati 00:00: every 6 [place] on inhaler 00 (six) Medical hours as Branch needed for Wheezing or Shortness of Breath. ALBUTEROL Yes 2{puff} Inhale 2 U nivers 90 9-21 Puffs ity of mcg/actuati 00:00: every 6 [place] on inhaler 00 (six) Medical hours as Branch needed for Wheezing or Shortness of Breath. ALBUTEROL Yes 2{puff} Inhale 2 U nivers 90 9-21 Puffs ity of mcg/actuati 00:00: every 6 [place] on inhaler 00 (six) Medical hours as Branch needed for Wheezing or Shortness of Breath. ALBUTEROL Yes 2{puff} Inhale 2 U nivers 90 9-21 Puffs ity of mcg/actuati 00:00: every 6 [place] on inhaler 00 (six) Medical hours as Branch needed for Wheezing or Shortness of Breath. ALBUTEROL Yes 2{puff} Inhale 2 U nivers 90 9-21 Puffs ity of mcg/actuati 00:00: every 6 [place] on inhaler 00 (six) Medical hours as Branch needed for Wheezing or Shortness of Breath. ALBUTEROL Yes 2{puff} Inhale 2 U nivers 90 9-21 Puffs ity of mcg/actuati 00:00: every 6 [place] on inhaler 00 (six) Medical hours as Branch needed for Wheezing or Shortness of Breath. ALBUTEROL 0 Yes 2{puff} Inhale 2 U nivers 90 9-21 Puffs ity of mcg/actuati 00:00: every 6 [place] on inhaler 00 (six) Medical hours as Branch needed for Wheezing or Shortness of Breath. ALBUTEROL 0 Yes 2{puff} Inhale 2 U nivers 90 9-21 Puffs ity of mcg/actuati 00:00: every 6 [place] on inhaler 00 (six) Medical hours as Branch needed for Wheezing or Shortness of Breath. ALBUTEROL Yes 2{puff} Inhale 2 U nivers 90 9-21 Puffs ity of mcg/actuati 00:00: every 6 [place] on inhaler 00 (six) Medical hours as Branch needed for Wheezing or Shortness of Breath. ALBUTEROL Yes 2{puff} Inhale 2 U nivers 90 9-21 Puffs ity of mcg/actuati 00:00: every 6 [place] on inhaler 00 (six) Medical hours as Branch needed for Wheezing or Shortness of Breath. ALBUTEROL Yes 2{puff} Inhale 2 U nivers 90 9-21 Puffs ity of mcg/actuati 00:00: every 6 [place] on inhaler 00 (six) Medical hours as Branch needed for Wheezing or Shortness of Breath. ALBUTEROL Yes 2{puff} Inhale 2 U nivers 90 9-21 Puffs ity of mcg/actuati 00:00: every 6 [place] on inhaler 00 (six) Medical hours as Branch needed for Wheezing or Shortness of Breath. ALBUTEROL Yes 2{puff} Inhale 2 U nivers 90 9-21 Puffs ity of mcg/actuati 00:00: every 6 [place] as on inhaler 00 (six) Medical hours as Branch needed for Wheezing or Shortness of Breath. ALBUTEROL 2020- No 2{puff} Inhale 2 [facility] 90 9-21 10-30 Puffs ity of mcg/actuati 00:00: 00:00 [place] 6 [place] inhaler 00 :00 (six) Medical hours as Branch needed for Wheezing or Shortness of Breath. fexofenadin 2020- No 180mg Take 1 Un maddie e (KAYLEIGH 12-20 tablet by ity of ALLERGY) 00:00: 00:00 mouth [place] 180 mg 00 :00 daily. Medical tablet Branch PREDNISONE 2020- No 20mg Take 1 Univ ers 20 mg 12-20 tablet by ity of tablet 00:00: 00:00 mouth 2 [place] 00 :00 (two) Medical times Branch daily. fexofenadin 2017-0 2020- No 180mg Take 1 Un maddie e (KAYLEIGH 9-21 02-06 tablet by ity of ALLERGY) 00:00: 00:00 mouth [place] 180 mg 00 :00 daily. Medical tablet Branch PREDNISONE 2016-0 2020- No 20mg Take 1 Univ ers 20 mg -21 02-06 tablet by ity of tablet 00:00: 00:00 mouth 2 [place] 00 :00 (two) Medical times Branch daily. fexofenadin 2017-0 2020- No 180mg Take 1 Un maddie e (KAYLEIGH 9-21 02-06 tablet by ity of ALLERGY) 00:00: 00:00 mouth [place] 180 mg 00 :00 daily. Medical tablet Branch PREDNISONE 2016-0 2020- No 20mg Take 1 Univ ers 20 mg -21 02-06 tablet by ity of tablet 00:00: 00:00 mouth 2 [place] 00 :00 (two) Medical times Branch daily. fexofenadin 2017-0 2020- No 180mg Take 1 Un maddie e (KAYLEIGH - 02-06 tablet by ity of ALLERGY) 00:00: 00:00 mouth [place] 180 mg 00 :00 daily. Medical tablet Branch PREDNISONE 2016-0 2020- No 20mg Take 1 Univ ers 20 mg - 02-06 tablet by ity of tablet 00:00: 00:00 mouth 2 [place] 00 :00 (two) Medical times Branch daily. fexofenadin 2017-0 2020- No 180mg Take 1 Un maddie e (KAYLEIGH 9- 02-06 tablet by ity of ALLERGY) 00:00: 00:00 mouth [place] 180 mg 00 :00 daily. Medical tablet Branch PREDNISONE 2016-0 2020- No 20mg Take 1 Univ ers 20 mg -21 02-06 tablet by ity of tablet 00:00: 00:00 mouth 2 [place] 00 :00 (two) Medical times Branch daily. fexofenadin 2017-0 2020- No 180mg Take 1 Un maddie e (KAYLEIGH 9-21 02-06 tablet by ity of ALLERGY) 00:00: 00:00 mouth [place] 180 mg 00 :00 daily. Medical tablet Branch PREDNISONE 2017-0 2020- No 20mg Take 1 Univ ers 20 mg 9-21 02-06 tablet by ity of tablet 00:00: 00:00 mouth 2 [place] 00 :00 (two) Medical times Branch daily. fexofenadin 2019- No 180mg Take 1 Un maddie e (KAYLEIGH 12-20 tablet by ity of ALLERGY) 00:00: 00:00 mouth [place] 180 mg 00 :00 daily. Medical tablet Branch PREDNISONE 2020- No 20mg Take 1 Univ ers 20 mg 12-20 tablet by ity of tablet 00:00: 00:00 mouth 2 [place] 00 :00 (two) Medical times Branch daily. Hydrocodone Hydrocodone Yes Chandrakant [address] [facility] [place] [facility] Xanax Xanax Yes [facility]andrakant [address] [facility] Zofran Zofran Yes [facility] Immunizations Ordered Filled Immunization Date Status Comments [facility] e Immunization Name Name SARS-COV-2 COVID-19 2020-09-20 Completed Unive rsity of ADI/J&J VACCINE 00:00:00 [facility] SARS-COV-2 COVID-19 2020-09-20 Completed Unive rsity of ADI/J&J VACCINE 00:00:00 [facility] SARS-COV-2 COVID-19 2020-09-20 Completed Unive rsity of ADI/J&J VACCINE 00:00:00 [facility] SARS-COV-2 COVID-19 2020-09-20 Completed Unive rsity of ADI/J&J VACCINE 00:00:00 [facility] SARS-COV-2 COVID-19 2020-09-20 Completed Unive rsity of ADI/J&J VACCINE 00:00:00 [facility] SARS-COV-2 COVID-19 2020-09-20 Completed Unive rsity of ADI/J&J VACCINE 00:00:00 [facility] SARS-COV-2 COVID-19 2020-09-20 Completed Unive rsity of ADI/J&J VACCINE 00:00:00 [facility] SARS-COV-2 COVID-19 2020-09-20 Completed Unive rsity of ADI/J&J VACCINE 00:00:00 [facility] SARS-COV-2 COVID-19 2020-09-20 Completed Unive rsity of ADI/J&J VACCINE 00:00:00 [facility] SARS-COV-2 COVID-19 2020-09-20 Completed Unive rsity of ADI/J&J VACCINE 00:00:00 [facility] SARS-COV-2 COVID-19 2020-09-20 Completed Unive rsity of ADI/J&J VACCINE 00:00:00 [facility] SARS-COV-2 COVID-19 2020-09-20 Completed Unive rsity of ADI/J&J VACCINE 00:00:00 [facility] SARS-COV-2 COVID-19 2020-09-20 Completed Unive rsity of ADI/J&J VACCINE 00:00:00 [facility] SARS-COV-2 COVID-19 2020-09-20 Completed Unive rsity of ADI/J&J VACCINE 00:00:00 [facility] SARS-COV-2 COVID-19 2020-09-20 Completed Unive rsity of ADI/J&J VACCINE 00:00:00 [facility] SARS-COV-2 COVID-19 2020-09-20 Completed Unive rsity of ADI/J&J VACCINE 00:00:00 [facility] SARS-COV-2 COVID-19 2020-09-20 Completed Unive rsity of ADI/J&J VACCINE 00:00:00 [facility] SARS-COV-2 COVID-19 2020-09-20 Completed Unive rsity of ADI/J&J VACCINE 00:00:00 [facility] SARS-COV-2 COVID-19 2020-09-20 Completed Unive rsity of ADI/J&J VACCINE 00:00:00 [facility] SARS-COV-2 COVID-19 2020-09-20 Completed Unive rsity of ADI/J&J VACCINE 00:00:00 [facility] SARS-COV-2 COVID-19 2020-09-20 Completed Unive rsity of ADI/J&J VACCINE 00:00:00 [facility] SARS-COV-2 COVID-19 2020-09-20 Completed Unive rsity of ADI/J&J VACCINE 00:00:00 [facility] SARS-COV-2 COVID-19 2020-09-20 Completed Unive rsity of ADI/J&J VACCINE 00:00:00 [facility] SARS-COV-2 COVID-19 2020-09-20 Completed Unive rsity of ADI/J&J VACCINE 00:00:00 [facility] SARS-COV-2 COVID-19 2020-09-20 Completed Unive rsity of ADI/J&J VACCINE 00:00:00 [facility] SARS-COV-2 COVID-19 2020-09-20 Completed Unive rsity of ADI/J&J VACCINE 00:00:00 [facility] SARS-COV-2 COVID-19 2020-09-20 Completed Unive rsity of ADI/J&J VACCINE 00:00:00 [facility] SARS-COV-2 COVID-19 2020-09-20 Completed Unive rsity of ADI/J&J VACCINE 00:00:00 [facility] SARS-COV-2 COVID-19 2020-09-20 Completed Unive rsity of ADI/J&J VACCINE 00:00:00 [facility] SARS-COV-2 COVID-19 2020-09-20 Completed Unive rsity of ADI/J&J VACCINE 00:00:00 [facility] SARS-COV-2 COVID-19 2020-09-20 Completed Unive rsity of ADI/J&J VACCINE 00:00:00 [facility] SARS-COV-2 COVID-19 2020-09-20 Completed Unive rsity of ADI/J&J VACCINE 00:00:00 [facility] SARS-COV-2 COVID-19 2020-09-20 Completed Unive rsity of ADI/J&J VACCINE 00:00:00 [facility] SARS-COV-2 COVID-19 2020-09-20 Completed Unive rsity of ADI/J&J VACCINE 00:00:00 [facility] SARS-COV-2 COVID-19 2020-09-20 Completed Unive rsity of ADI/J&J VACCINE 00:00:00 [facility] SARS-COV-2 COVID-19 2020-09-20 Completed Unive rsity of ADI/J&J VACCINE 00:00:00 [facility] SARS-COV-2 COVID-19 2020-09-20 Completed Unive rsity of ADI/J&J VACCINE 00:00:00 [facility] SARS-COV-2 COVID-19 2020-09-20 Completed Unive rsity of ADI/J&J VACCINE 00:00:00 [facility] Influenza Virus 2020-01-11 Completed Universit y of Vaccine Quad .5 mL 00:00:00 [place] [facility] IM 6+ MO Branch Influenza Virus 2020-01-11 Completed Universit y of Vaccine Quad .5 mL 00:00:00 [place] [facility] IM 6+ MO Branch Influenza Virus 2020-01-11 Completed Universit y of Vaccine Quad .5 mL 00:00:00 [place] [facility] IM 6+ MO Branch Influenza Virus 2020-01-11 Completed Universit y of Vaccine Quad .5 mL 00:00:00 [place] [facility] IM 6+ MO Branch Influenza Virus 2020-01-11 Completed Universit y of Vaccine Quad .5 mL 00:00:00 [place] [facility] IM 6+ MO Branch Influenza Virus 2020-01-11 Completed Universit y of Vaccine Quad .5 mL 00:00:00 [place] [facility] IM 6+ MO Branch Influenza Virus 2020-01-11 Completed Universit y of Vaccine Quad .5 mL 00:00:00 [place] [facility] IM 6+ MO Branch Influenza Virus 2020-01-11 Completed Universit y of Vaccine Quad .5 mL 00:00:00 [place] [facility] IM 6+ MO Branch Influenza Virus 2020-01-11 Completed Universit y of Vaccine Quad .5 mL 00:00:00 [place] [facility] IM 6+ MO Branch Influenza Virus 2020-01-11 Completed Universit y of Vaccine Quad .5 mL 00:00:00 [place] [facility] IM 6+ MO Branch Influenza Virus 2020-01-11 Completed Universit y of Vaccine Quad .5 mL 00:00:00 [place] [facility] IM 6+ MO Branch Influenza Virus 2020-01-11 Completed Universit y of Vaccine Quad .5 mL 00:00:00 [place] [facility] IM 6+ MO Branch Influenza Virus 2020-01-11 Completed Universit y of Vaccine Quad .5 mL 00:00:00 [place] [facility] IM 6+ MO Branch Influenza Virus 2020-01-11 Completed Universit y of Vaccine Quad .5 mL 00:00:00 [place] [facility] IM 6+ MO Branch Influenza Virus 2020-01-11 Completed Universit y of Vaccine Quad .5 mL 00:00:00 [place] [facility] IM 6+ MO Branch Influenza Virus 2020-01-11 Completed Universit y of Vaccine Quad .5 mL 00:00:00 [place] [facility] IM 6+ MO Branch Influenza Virus 2020-01-11 Completed Universit y of Vaccine Quad .5 mL 00:00:00 [place] [facility] IM 6+ MO Branch Influenza Virus 2020-01-11 Completed Universit y of Vaccine Quad .5 mL 00:00:00 [place] [facility] IM 6+ MO Branch Influenza Virus 2020-01-11 Completed Universit y of Vaccine Quad .5 mL 00:00:00 [place] [facility] IM 6+ MO Branch Influenza Virus 2020-01-11 Completed Universit y of Vaccine Quad .5 mL 00:00:00 [place] [facility] IM 6+ MO Branch Influenza Virus 2020-01-11 Completed Universit y of Vaccine Quad .5 mL 00:00:00 [place] [facility] IM 6+ MO Branch Influenza Virus 2020-01-11 Completed Universit y of Vaccine Quad .5 mL 00:00:00 [place] [facility] IM 6+ MO Branch Influenza Virus 2020-01-11 Completed Universit y of Vaccine Quad .5 mL 00:00:00 [place] [facility] IM 6+ MO Branch Influenza Virus 2020-01-11 Completed Universit y of Vaccine Quad .5 mL 00:00:00 [place] [facility] IM 6+ MO Branch Influenza Virus 2020-01-11 Completed Universit y of Vaccine Quad .5 mL 00:00:00 [place] [facility] IM 6+ MO Branch Influenza Virus 2020-01-11 Completed Universit y of Vaccine Quad .5 mL 00:00:00 [place] [facility] IM 6+ MO Branch Influenza Virus 2020-01-11 Completed Universit y of Vaccine Quad .5 mL 00:00:00 [place] [facility] IM 6+ MO Branch Influenza Virus 2020-01-11 Completed Universit y of Vaccine Quad .5 mL 00:00:00 [place] [facility] IM 6+ MO Branch Influenza Virus 2020-01-11 Completed Universit y of Vaccine Quad .5 mL 00:00:00 [place] [facility] IM 6+ MO Branch Influenza Virus 2020-01-11 Completed Universit y of Vaccine Quad .5 mL 00:00:00 [place] [facility] IM 6+ MO Branch Influenza Virus 2020-01-11 Completed Universit y of Vaccine Quad .5 mL 00:00:00 [place] [facility] IM 6+ MO Branch Influenza Virus 2020-01-11 Completed Universit y of Vaccine Quad .5 mL 00:00:00 [place] [facility] IM 6+ MO Branch Influenza Virus 2020-01-11 Completed Universit y of Vaccine Quad .5 mL 00:00:00 [place] [facility] IM 6+ MO Branch Influenza Virus 2020-01-11 Completed Universit y of Vaccine Quad .5 mL 00:00:00 [place] [facility] IM 6+ MO Branch Influenza Virus 2020-01-11 Completed Universit y of Vaccine Quad .5 mL 00:00:00 [place] [facility] IM 6+ MO Branch Influenza Virus 2020-01-11 Completed Universit y of Vaccine Quad .5 mL 00:00:00 [place] [facility] IM 6+ MO Branch Influenza Virus 2020-01-11 Completed Universit y of Vaccine Quad .5 mL 00:00:00 [place] [facility] IM 6+ MO Branch Influenza Virus 2020-01-11 Completed Universit y of Vaccine Quad .5 mL 00:00:00 [place] [facility] IM 6+ MO Branch Influenza Virus 2020-01-11 Completed Universit y of Vaccine Quad .5 mL 00:00:00 [place] [facility] IM 6+ MO Branch Influenza Virus 2020-01-11 Completed Universit y of Vaccine Quad .5 mL 00:00:00 [place] [facility] IM 6+ MO Branch Influenza Virus 2020-01-11 Completed Universit y of Vaccine Quad .5 mL 00:00:00 [place] [facility] IM 6+ MO Branch Influenza Virus 2020-01-11 Completed Universit y of Vaccine Quad .5 mL 00:00:00 [place] [facility] IM 6+ MO Branch Influenza Virus 2020-01-11 Completed Universit y of Vaccine Quad .5 mL 00:00:00 [place] [facility] IM 6+ MO Branch Influenza Virus 2020-01-11 Completed Universit y of Vaccine Quad .5 mL 00:00:00 [place] [facility] IM 6+ MO Branch Influenza Virus 2020-01-11 Completed Universit y of Vaccine Quad .5 mL 00:00:00 [place] [facility] IM 6+ MO Branch Influenza Virus 2020-01-11 Completed Universit y of Vaccine Quad .5 mL 00:00:00 [place] [facility] IM 6+ MO Branch Influenza Virus 2020-01-11 Completed Universit y of Vaccine Quad .5 mL 00:00:00 [place] [facility] IM 6+ MO Branch Influenza Virus 2020-01-11 Completed Universit y of Vaccine Quad .5 mL 00:00:00 [place] [facility] IM 6+ MO Branch Influenza Virus 2020-01-11 Completed Universit y of Vaccine Quad .5 mL 00:00:00 [place] [facility] IM 6+ MO Branch Influenza Virus 2020-01-11 Completed Universit y of Vaccine Quad .5 mL 00:00:00 [place] [facility] IM 6+ MO Branch Influenza Virus 2020-01-11 Completed Universit y of Vaccine Quad .5 mL 00:00:00 [place] [facility] IM 6+ MO Branch Influenza Virus 2020-01-11 Completed Universit y of Vaccine Quad .5 mL 00:00:00 [place] [facility] IM 6+ MO Branch Influenza Virus 2020-01-11 Completed Universit y of Vaccine Quad .5 mL 00:00:00 [place] [facility] IM 6+ MO Branch Influenza Virus 2020-01-11 Completed Universit y of Vaccine Quad .5 mL 00:00:00 [place] [facility] IM 6+ MO Branch Influenza Virus 2020-01-11 Completed Universit y of Vaccine Quad .5 mL 00:00:00 [place] [facility] IM 6+ MO Branch Influenza Virus 2020-01-11 Completed Universit y of Vaccine Quad .5 mL 00:00:00 [place] [facility] IM 6+ MO Branch Influenza Virus 2020-01-11 Completed Universit y of Vaccine Quad .5 mL 00:00:00 [place] [facility] IM 6+ MO Branch Influenza Virus 2020-01-11 Completed Universit y of Vaccine Quad .5 mL 00:00:00 [place] [facility] IM 6+ MO Branch Influenza Virus 2020-01-11 Completed Universit y of Vaccine Quad .5 mL 00:00:00 [place] [facility] IM 6+ MO Branch Influenza Virus 2020-01-11 Completed Universit y of Vaccine Quad .5 mL 00:00:00 [place] [facility] IM 6+ MO Branch Influenza Virus 2020-01-11 Completed Universit y of Vaccine Quad .5 mL 00:00:00 [place] [facility] IM 6+ MO Branch Influenza Virus 2020-01-11 Completed Universit y of Vaccine Quad .5 mL 00:00:00 [place] [facility] IM 6+ MO Branch Influenza Virus 2020-01-11 Completed Universit y of Vaccine Quad .5 mL 00:00:00 [place] [facility] IM 6+ MO Branch Influenza Virus 2020-01-11 Completed Universit y [facility] .5 mL 00:00:00 [facility] Influenza Virus 2020-01-11 Completed [facility] .5 mL 00:00:00 [facility] Influenza Virus 2020-01-11 Completed [facility] .5 mL 00:00:00 [facility] Influenza Virus 2020-01-11 Completed [facility] .5 mL 00:00:00 [facility] Influenza Virus 2020-01-11 Completed [facility] .5 mL 00:00:00 [facility] Influenza Virus 2020-01-11 Completed [facility] .5 mL 00:00:00 [facility] Influenza Virus 2020-01-11 Completed [facility] .5 mL 00:00:00 [facility] Influenza Virus 2020-01-11 Completed [facility] .5 mL 00:00:00 [facility] Influenza Virus 2020-01-11 Completed [facility] .5 mL 00:00:00 [facility] Influenza Virus 2020-01-11 Completed [facility] .5 mL 00:00:00 [facility] Influenza Virus 2020-01-11 Completed [facility] .5 mL 00:00:00 [facility] Influenza Virus 2020-01-11 Completed [facility] .5 mL 00:00:00 [facility] Influenza Virus 2020-01-11 Completed [facility] .5 mL 00:00:00 [facility] Influenza Virus 2020-01-11 Completed [facility] .5 mL 00:00:00 [facility] Influenza Virus 2020-01-11 Completed [facility] .5 mL 00:00:00 [facility] Influenza Virus 2020-01-11 Completed [facility] .5 mL 00:00:00 [facility] Influenza Virus 2020-01-11 Completed [facility] .5 mL 00:00:00 [facility] Influenza Virus 2020-01-11 Completed [facility] .5 mL 00:00:00 [facility] Influenza Virus 2020-01-11 Completed [facility] .5 mL 00:00:00 [facility] TDAP (ADACEL) 2019-04-28 Completed [facility] of VACCINE 00:00:00 [facility] TDAP (ADACEL) 2019-04-28 Completed [facility] of VACCINE 00:00:00 [facility] TDAP (ADACEL) 2019-04-28 Completed [facility] of VACCINE 00:00:00 [facility] TDAP (ADACEL) 2019-04-28 Completed [facility] VACCINE 00:00:00 [facility] TDAP (ADACEL) 2019-04-28 Completed [facility] VACCINE 00:00:00 [facility] TDAP (ADACEL) 2019-04-28 Completed [facility] VACCINE 00:00:00 [facility] TDAP (ADACEL) 2019-04-28 Completed [facility] VACCINE 00:00:00 [facility] TDAP (ADACEL) 2019-04-28 Completed [facility] VACCINE 00:00:00 [facility] TDAP (ADACEL) 2019-04-28 Completed [facility] VACCINE 00:00:00 [facility] TDAP (ADACEL) 2019-04-28 Completed [facility] VACCINE 00:00:00 [facility] TDAP (ADACEL) 2019-04-28 Completed [facility] VACCINE 00:00:00 [facility] TDAP (ADACEL) 2019-04-28 Completed [facility] VACCINE 00:00:00 [facility] TDAP (ADACEL) 2019-04-28 Completed [facility] of VACCINE 00:00:00 [facility] TDAP (ADACEL) 2019-04-28 Completed [facility] VACCINE 00:00:00 [facility] TDAP (ADACEL) 2019-04-28 Completed [facility] of VACCINE 00:00:00 [facility] TDAP (ADACEL) 2019-04-28 Completed [facility] of VACCINE 00:00:00 [facility] TDAP (ADACEL) 2019-04-28 Completed [facility] of VACCINE 00:00:00 [facility] TDAP (ADACEL) 2019-04-28 Completed [facility] VACCINE 00:00:00 [facility] TDAP (ADACEL) 2019-04-28 Completed [facility] of VACCINE 00:00:00 [facility] TDAP (ADACEL) 2019-04-28 Completed [facility] VACCINE 00:00:00 [facility] TDAP (ADACEL) 2019-04-28 Completed [facility] VACCINE 00:00:00 [facility] TDAP (ADACEL) 2019-04-28 Completed [facility] of VACCINE 00:00:00 [facility] TDAP (ADACEL) 2019-04-28 Completed [facility] of VACCINE 00:00:00 [facility] TDAP (ADACEL) 2019-04-28 Completed [facility] VACCINE 00:00:00 [facility] TDAP (ADACEL) 2019-04-28 Completed [facility] VACCINE 00:00:00 [facility] TDAP (ADACEL) 2019-04-28 Completed [facility] of VACCINE 00:00:00 [facility] TDAP (ADACEL) 2019-04-28 Completed [facility] VACCINE 00:00:00 [facility] TDAP (ADACEL) 2019-04-28 Completed [facility] of VACCINE 00:00:00 [facility] TDAP (ADACEL) 2019-04-28 Completed [facility] of VACCINE 00:00:00 [facility] TDAP (ADACEL) 2019-04-28 Completed [facility] of VACCINE 00:00:00 [facility] TDAP (ADACEL) 2019-04-28 Completed [facility] of VACCINE 00:00:00 [facility] TDAP (ADACEL) 2019-04-28 Completed [facility] of VACCINE 00:00:00 [facility] TDAP (ADACEL) 2019-04-28 Completed [facility] VACCINE 00:00:00 [facility] TDAP (ADACEL) 2019-04-28 Completed [facility] of VACCINE 00:00:00 [facility] TDAP (ADACEL) 2019-04-28 Completed [facility] of VACCINE 00:00:00 [facility] TDAP (ADACEL) 2019-04-28 Completed [facility] of VACCINE 00:00:00 [facility] TDAP (ADACEL) 2019-04-28 Completed [facility] of VACCINE 00:00:00 [facility] TDAP (ADACEL) 2019-04-28 Completed [facility] of VACCINE 00:00:00 [facility] TDAP (ADACEL) 2019-04-28 Completed [facility] of VACCINE 00:00:00 [facility] TDAP (ADACEL) 2019-04-28 Completed [facility] VACCINE 00:00:00 [facility] TDAP (ADACEL) 2019-04-28 Completed [facility] of VACCINE 00:00:00 [facility] TDAP (ADACEL) 2019-04-28 Completed [facility] of VACCINE 00:00:00 [facility] TDAP (ADACEL) 2019-04-28 Completed [facility] VACCINE 00:00:00 [facility] TDAP (ADACEL) 2019-04-28 Completed [facility] of VACCINE 00:00:00 [facility] TDAP (ADACEL) 2019-04-28 Completed [facility] of VACCINE 00:00:00 [facility] TDAP (ADACEL) 2019-04-28 Completed [facility] of VACCINE 00:00:00 [facility] TDAP (ADACEL) 2019-04-28 Completed [facility] VACCINE 00:00:00 [facility] TDAP (ADACEL) 2019-04-28 Completed [facility] VACCINE 00:00:00 [facility] TDAP (ADACEL) 2019-04-28 Completed [facility] of VACCINE 00:00:00 [facility] TDAP (ADACEL) 2019-04-28 Completed [facility] of VACCINE 00:00:00 [facility] TDAP (ADACEL) 2019-04-28 Completed [facility] of VACCINE 00:00:00 [facility] TDAP (ADACEL) 2019-04-28 Completed [facility] of VACCINE 00:00:00 [facility] TDAP (ADACEL) 2019-04-28 Completed [facility] of VACCINE 00:00:00 [facility] TDAP (ADACEL) 2019-04-28 Completed [facility] of VACCINE 00:00:00 [facility] TDAP (ADACEL) 2019-04-28 Completed [facility] of VACCINE 00:00:00 [facility] TDAP (ADACEL) 2019-04-28 Completed [facility] of VACCINE 00:00:00 [facility] TDAP (ADACEL) 2019-04-28 Completed [facility] of VACCINE 00:00:00 [facility] TDAP (ADACEL) 2019-04-28 Completed [facility] of VACCINE 00:00:00 [facility] TDAP (ADACEL) 2019-04-28 Completed [facility] VACCINE 00:00:00 [facility] TDAP (ADACEL) 2019-04-28 Completed [facility] of VACCINE 00:00:00 [facility] TDAP (ADACEL) 2019-04-28 Completed [facility] of VACCINE 00:00:00 [facility] TDAP (ADACEL) 2019-04-28 Completed [facility] of VACCINE 00:00:00 [facility] TDAP (ADACEL) 2019-04-28 Completed [facility] of VACCINE 00:00:00 [facility] TDAP (ADACEL) 2019-04-28 Completed [facility] of VACCINE 00:00:00 [facility] TDAP (ADACEL) 2019-04-28 Completed [facility] of VACCINE 00:00:00 [facility] TDAP (ADACEL) 2019-04-28 Completed [facility] of VACCINE 00:00:00 [facility] TDAP (ADACEL) 2019-04-28 Completed [facility] of VACCINE 00:00:00 [facility] TDAP (ADACEL) 2019-04-28 Completed [facility] of VACCINE 00:00:00 [facility] TDAP (ADACEL) 2019-04-28 Completed [facility] of VACCINE 00:00:00 [facility] TDAP (ADACEL) 2019-04-28 Completed [facility] of VACCINE 00:00:00 [facility] TDAP (ADACEL) 2019-04-28 Completed [facility] of VACCINE 00:00:00 [facility] TDAP (ADACEL) 2019-04-28 Completed [facility] of VACCINE 00:00:00 [facility] TDAP (ADACEL) 2019-04-28 Completed [facility] of VACCINE 00:00:00 [facility] TDAP (ADACEL) 2019-04-28 Completed [facility] of VACCINE 00:00:00 [facility] TDAP (ADACEL) 2019-04-28 Completed [facility] of VACCINE 00:00:00 [facility] TDAP (ADACEL) 2019-04-28 Completed [facility] of VACCINE 00:00:00 [facility] TDAP (ADACEL) 2019-04-28 Completed [facility] of VACCINE 00:00:00 [facility] TDAP (ADACEL) 2019-04-28 Completed [facility] of VACCINE 00:00:00 [facility] TDAP (ADACEL) 2019-04-28 Completed [facility] of VACCINE 00:00:00 [facility] TDAP (ADACEL) 2019-04-28 Completed [facility] of VACCINE 00:00:00 [facility] TDAP (ADACEL) 2019-04-28 Completed [facility] of VACCINE 00:00:00 [facility] TDAP (ADACEL) 2019-04-28 Completed [facility] of VACCINE 00:00:00 [facility] TDAP (ADACEL) 2019-04-28 Completed [facility] of VACCINE 00:00:00 [facility] TDAP (ADACEL) 2019-04-28 Completed [facility] of VACCINE 00:00:00 [facility] TDAP (ADACEL) 2019-04-28 Completed [facility] of VACCINE 00:00:00 [facility] TDAP (ADACEL) 2019-04-28 Completed [facility] of VACCINE 00:00:00 [facility] TDAP (ADACEL) 2019-04-28 Completed [facility] of VACCINE 00:00:00 [facility] TDAP (ADACEL) 2019-04-28 Completed [facility] of VACCINE 00:00:00 [facility] TDAP (ADACEL) 2019-04-28 Completed [facility] of VACCINE 00:00:00 [facility] TDAP (ADACEL) 2019-04-28 Completed [facility] of VACCINE 00:00:00 [facility] TDAP (ADACEL) 2019-04-28 Completed [facility] of VACCINE 00:00:00 [facility] TDAP (ADACEL) 2019-04-28 Completed [facility] of VACCINE 00:00:00 [facility] TDAP (ADACEL) 2019-04-28 Completed [facility] of VACCINE 00:00:00 [facility] TDAP (ADACEL) 2019-04-28 Completed [facility] of VACCINE 00:00:00 [facility] TDAP (ADACEL) 2019-04-28 Completed [facility] of VACCINE 00:00:00 [facility] TDAP (ADACEL) 2019-04-28 Completed [facility] of VACCINE 00:00:00 [facility] TDAP (ADACEL) 2019-04-28 Completed [facility] of VACCINE 00:00:00 [facility] TDAP (ADACEL) 2019-04-28 Completed [facility] of VACCINE 00:00:00 [facility] TDAP (ADACEL) 2019-04-28 Completed [facility] of VACCINE 00:00:00 [facility] TDAP (ADACEL) 2019-04-28 Completed [facility] of VACCINE 00:00:00 [facility] TDAP (ADACEL) 2019-04-28 Completed [facility] of VACCINE 00:00:00 [facility] TDAP (ADACEL) 2019-04-28 Completed [facility] of VACCINE 00:00:00 [facility] TDAP (ADACEL) 2019-04-28 Completed [facility] of VACCINE 00:00:00 [facility] TDAP (ADACEL) 2019-04-28 Completed [facility] of VACCINE 00:00:00 [facility] TDAP (ADACEL) 2019-04-28 Completed [facility] of VACCINE 00:00:00 [facility] TDAP (ADACEL) 2019-04-28 Completed [facility] of VACCINE 00:00:00 [facility] TDAP (ADACEL) 2019-04-28 Completed [facility] of VACCINE 00:00:00 [facility] TDAP (ADACEL) 2019-04-28 Completed [facility] of VACCINE 00:00:00 [facility] TDAP (ADACEL) 2019-04-28 Completed [facility] of VACCINE 00:00:00 [facility] TDAP (ADACEL) 2019-04-28 Completed [facility] of VACCINE 00:00:00 [facility] TDAP (ADACEL) 2019-04-28 Completed [facility] of VACCINE 00:00:00 [facility] TDAP (ADACEL) 2019-04-28 Completed [facility] of VACCINE 00:00:00 [facility] TDAP (ADACEL) 2019-04-28 Completed [facility] of VACCINE 00:00:00 [facility] TDAP (ADACEL) 2019-04-28 Completed [facility] of VACCINE 00:00:00 [facility] TDAP (ADACEL) 2019-04-28 Completed [facility] of VACCINE 00:00:00 [facility] TDAP (ADACEL) 2019-04-28 Completed [facility] of VACCINE 00:00:00 [facility] TDAP (ADACEL) 2019-04-28 Completed [facility] of VACCINE 00:00:00 [facility] TDAP (ADACEL) 2019-04-28 Completed [facility] of VACCINE 00:00:00 [facility] Vital Signs Vital Name Observation Time Observation Value Comments Source Systolic blood 2021-02-08 22:03:00 99 mm[Hg] Univer sity of pressure [facility] Diastolic blood 2021-02-08 22:03:00 61 mm[Hg] Unive rsity of [facility] Heart rate 2021-02-08 22:03:00 88 /min [facility] Body temperature 2021-02-08 22:03:00 36.56 [facility] 2021-02-08 22:03:00 18 /min [facility] Oxygen saturation in 2021-02-08 22:03:00 100 /min [facility] Arterial blood by [facility] Pulse oximetry Branch Body weight 2021-02-08 10:30:[address] [facility] BMI 2021-02-08 10:30:00 21.06 kg/m2 [facility] Body height 2021-02-05 20:24:[address] [facility] Systolic blood 2021-02-01 16:29:00 117 mm[Hg] Univer sity of pressure [facility] Diastolic blood 2021-02-01 16:29:00 79 mm[Hg] Unive rsity of pressure [facility] Heart rate 2021-02-01 16:29:00 90 /min [facility] Body temperature 2021-02-01 16:29:00 37.11 [facility] 2021-02-01 16:29:00 16 /min Univ ersity of [facility] Oxygen saturation in 2021-02-01 16:29:00 98 /min University of Arterial blood by [place] [employer] [facility] Pulse [facility] Body weight 2021-02-01 09:09:00 68.493 kg [facility] BMI 2021-02-01 09:09:00 21.06 kg/m2 [facility] Body height 2021-01-28 03:36:00 180.3 cm [facility] Systolic blood 2021-01-21 10:12:00 146 mm[Hg] Univer sity of pressure [facility] Diastolic blood 2021-01-21 10:12:00 91 mm[Hg] Unive rsity of pressure [facility] Heart rate 2021-01-21 10:12:00 100 /min [facility] Oxygen saturation in 2021-01-21 10:12:00 100 /min [facility] of Arterial blood by [place] [employer] [facility] P[facility] Respiratory rate 2021-01-21 09:40:00 21 /min Univ ersity of [facility] Body temperature 2021-01-21 08:42:00 37.67 Leda Univ ersity of [facility] Body height 2021-01-21 08:42:00 180.3 cm [facility] Body weight 2021-01-21 08:42:00 68.04 kg [facility] BMI 2021-01-21 08:42:00 20.92 kg/m2 [facility] Systolic blood 2021-01-08 16:00:00 130 mm[Hg] Univer sity of pressure [facility] Diastolic blood 2021-01-08 16:00:00 74 mm[Hg] Unive rsity of pressure [facility] Heart rate 2021-01-08 16:00:00 90 /min [facility] Body temperature 2021-01-08 16:00:00 36.61 Leda Univ ersity of [facility] Respiratory rate 2021-01-08 16:00:00 18 /min Univ ersity of [facility] Oxygen saturation in 2021-01-08 16:00:00 98 /min [facility] of Arterial blood by [place] [employer] [facility] P[facility] Body weight 2021-01-08 09:23:00 70.489 kg [facility] BMI 2021-01-08 09:23:00 25.89 kg/m2 [facility] Body height 2021-01-05 02:00:00 165 cm [facility] Body weight 2021-01-05 18:00:00 74.8 kg [facility] BMI 2021-01-05 18:00:00 27.47 kg/m2 [facility] Systolic blood 2021-01-05 14:00:00 126 mm[Hg] Univer sity of pressure [facility] Diastolic blood 2021-01-05 14:00:00 85 mm[Hg] Unive rsity of pressure [facility] Heart rate 2021-01-05 14:00:00 73 /min [facility] Body temperature 2021-01-05 14:00:00 36.22 Leda Univ ersity of [facility] Respiratory rate 2021-01-05 14:00:00 17 /min Univ ersity of [facility] Oxygen saturation in 2021-01-05 14:00:00 95 /min [facility] of Arterial blood by [place] [employer] [facility] P[facility] Body height 2021-01-05 02:00:00 165 cm [facility] Systolic blood 2021-01-04 19:40:00 146 mm[Hg] Univer sity of pressure [facility] Diastolic blood 2021-01-04 19:40:00 111 mm[Hg] Unive rsity of pressure [facility] Heart rate 2021-01-04 19:40:00 106 /min [facility] Respiratory rate 2021-01-04 19:40:00 18 /min Univ ersity of [facility] Oxygen saturation in 2021-01-04 19:40:00 96 /min [facility] of Arterial blood by [place] [employer] [facility] P[facility] Body temperature 2021-01-04 17:43:00 37.5 Leda Univ ersity of [facility] Body weight 2021-01-04 17:43:00 74.844 kg [facility] BMI 2021-01-04 17:43:00 23.01 kg/m2 [facility] Systolic blood 2020-12-22 16:00:00 137 mm[Hg] Univer sity of pressure [facility] Diastolic blood 2020-12-22 16:00:00 88 mm[Hg] Unive rsity of pressure [facility] Heart rate 2020-12-22 16:00:00 84 /min [facility] Body temperature 2020-12-22 16:00:00 36.44 Leda [facility] ersity of [facility] Respiratory rate 2020-12-22 16:00:00 18 /min Univ ersity of [facility] Oxygen saturation in 2020-12-22 16:00:00 95 /min [facility] of Arterial blood by [place] [employer] [facility] P[facility] Body weight 2020-12-22 08:00:00 74.98 kg [facility] BMI 2020-12-22 08:00:00 23.05 kg/m2 [facility] Body height 2020-12-15 20:59:00 180.3 cm [facility] Systolic blood 2020-12-11 17:00:00 184 mm[Hg] Univer sity of pressure [facility] Diastolic blood 2020-12-11 17:00:00 103 mm[Hg] Unive rsity of pressure [facility] Heart rate 2020-12-11 17:00:00 84 /min [facility] Oxygen saturation in 2020-12-11 17:00:00 99 /min [facility] of Arterial blood by [place] [employer] [facility] P[facility] Respiratory rate 2020-12-11 16:30:00 16 /min Univ ersity of [facility] Body temperature 2020-12-11 13:55:00 37.44 Leda Univ ersity of [facility] Body height 2020-12-11 13:55:00 177.8 cm [facility] Body weight 2020-12-11 13:55:00 79.379 kg [facility] BMI 2020-12-11 13:55:00 25.11 kg/m2 [facility] Systolic blood 2020-11-30 16:23:00 131 mm[Hg] Univer sity of pressure [facility] Diastolic blood 2020-11-30 16:23:00 88 mm[Hg] Unive rsity of pressure [facility] Heart rate 2020-11-30 16:23:00 64 /min [facility] Body temperature 2020-11-30 16:23:00 36 Leda [facility] ersity of [facility] Respiratory rate 2020-11-30 16:23:00 18 /min Univ ersity of [facility] Oxygen saturation in 2020-11-30 16:23:00 94 /min [facility] of Arterial blood by [place] [employer] [facility] Pulse [facility]xim[facility] Branch Body weight 2020-11-24 09:15:00 79.47 kg [facility] BMI 2020-11-24 09:15:00 24.44 kg/m2 [facility] Body height 2020-11-24 03:34:00 180.3 cm [facility] Systolic blood 2020-11-04 16:16:00 97 mm[Hg] Univer sity of pressure [facility] Diastolic blood 2020-11-04 16:16:00 62 mm[Hg] Unive rsity of pressure [facility] Heart rate 2020-11-04 16:16:00 98 /min [facility] Body height 2020-11-04 16:16:00 180.3 cm [facility] Body weight 2020-11-04 16:16:00 80.74 kg [facility] BMI 2020-11-04 16:16:00 24.83 kg/m2 [facility] Systolic blood 2020-10-31 07:10:00 123 mm[Hg] Univer sity of pressure [facility] Diastolic blood 2020-10-31 07:10:00 82 mm[Hg] Unive rsity of pressure [facility] Heart rate 2020-10-31 07:10:00 99 /min [facility] Respiratory rate 2020-10-31 07:10:00 18 /min Univ ersity of [facility] Oxygen saturation in 2020-10-31 07:10:00 92 /min [facility]terial blood by [place] [facility] Body temperature 2020-10-31 03:42:00 37.28 Leda [facility] ers[facility] of [facility] Body weight 2020-10-31 03:42:00 85.276 kg [facility] BMI 2020-10-31 03:42:00 26.22 kg/m2 [facility] Systolic blood 2020-10-18 09:00:00 128 mm[Hg] Univer sity of pressure [facility] Diastolic blood 2020-10-18 09:00:00 90 mm[Hg] Unive rsity of pressure [facility] Heart rate 2020-10-18 09:00:00 85 /min [facility] Respiratory rate 2020-10-18 09:00:00 13 /min Univ ersity of [facility] Oxygen saturation in 2020-10-18 09:00:00 95 /min [facility] of Arterial blood by [place] [employer] [facility] Pulse [facility] Branch Body temperature 2020-10-18 07:30:00 37.44 Leda [facility] Body height 2020-10-18 07:30:00 180.3 cm [facility] Body weight 2020-10-18 07:30:00 85.276 kg [facility] BMI 2020-10-18 07:30:00 26.22 kg/m2 [facility] Systolic blood 2020-10-13 09:15:00 126 mm[Hg] Univer sity of pressure [facility] Diastolic blood 2020-10-13 09:15:00 87 mm[Hg] Unive rsity of pressure [facility] Heart rate 2020-10-13 09:15:00 92 /min [facility] Respiratory rate 2020-10-13 09:15:00 19 /min Univ ersity of [facility] Oxygen saturation in 2020-10-13 09:15:00 95 /min [facility] of Arterial blood by [place] [employer] [facility] Pulse oxim[facility] Branch Body temperature 2020-10-13 07:26:00 37.44 Leda [facility] Body weight 2020-10-13 07:25:00 85.276 kg [facility] BMI 2020-10-13 07:25:00 26.22 kg/m2 [facility] Systolic blood 2020-10-03 21:40:00 119 mm[Hg] [facility] Diastolic blood 2020-10-03 21:40:00 73 mm[Hg] [facility]ive [facility]ity [facility] Heart rate 2020-10-03 21:40:00 93 /min [facility] Body height 2020-10-03 21:40:00 180.3 cm [facility] Body weight 2020-10-03 21:40:00 85.276 kg [facility] BMI 2020-10-03 21:40:00 26.22 kg/m2 [facility] Systolic blood 2020-09-28 16:00:00 129 mm[Hg] [facility] Diastolic blood 2020-09-28 16:00:00 79 mm[Hg] Unive rsity of [facility] Heart rate 2020-09-28 16:00:00 71 /min [facility] Respiratory rate 2020-09-28 16:00:00 20 /min Univ [facility] Oxygen saturation in 2020-09-28 16:00:00 96 /min University of Arterial blood by [place] [employer] j[facility]eta Pulse oxim[facility] Body temperature 2020-09-28 13:26:00 37.5 Leda [facility] Body weight 2020-09-28 13:26:00 88.451 kg [facility] BMI 2020-09-28 13:26:00 27.20 kg/m2 [facility] Systolic blood 2020-09-28 16:00:00 129 mm[Hg] [facility] Diastolic blood 2020-09-28 16:00:00 79 mm[Hg] [facility]ive rsity [facility] Heart rate 2020-09-28 16:00:00 71 /min [facility] Respiratory rate 2020-09-28 16:00:00 20 /min [facility] Oxygen saturation in 2020-09-28 16:00:00 96 /min [facility] Arterial blood by [employer] julieta [facility] Body temperature 2020-09-28 13:26:00 37.5 Leda [facility] Body weight 2020-09-28 13:26:00 88.451 kg [facility] BMI 2020-09-28 13:26:00 27.20 kg/m2 [facility] Systolic blood 2020-09-27 21:34:00 143 mm[Hg] [facility] Diastolic blood 2020-09-27 21:34:00 89 mm[Hg] [facility]ive rsity [facility] Heart rate 2020-09-27 21:34:00 78 /min [facility] Body temperature 2020-09-27 21:34:00 36 Leda [facility] Body height 2020-09-27 21:34:00 180.3 cm [facility] Body weight 2020-09-27 21:34:00 88.542 kg [facility] BMI 2020-09-27 21:34:00 27.22 kg/m2 [facility] Oxygen saturation in 2020-09-27 21:34:00 99 /min [facility] of Arterial blood by [facility] julieta [facility] Systolic blood 2020-09-27 21:34:00 143 mm[Hg] [facility] Diastolic blood 2020-09-27 21:34:00 89 mm[Hg] [facility]ive rs[facility] Heart rate 2020-09-27 21:34:00 78 /min [facility] Body temperature 2020-09-27 21:34:00 36 Leda [facility] Body height 2020-09-27 21:34:00 180.3 cm [facility] Body weight 2020-09-27 21:34:00 88.542 kg [facility] BMI 2020-09-27 21:34:00 27.22 kg/m2 [facility] Oxygen saturation in 2020-09-27 21:34:00 99 /min [facility] by [facility] Systolic blood 2020-09-24 16:20:00 123 mm[Hg] [facility] Diastolic blood 2020-09-24 16:20:00 90 mm[Hg] [facility]ive [facility] Heart rate 2020-09-24 16:20:00 74 /min [facility] Body temperature 2020-09-24 16:20:00 36.06 Leda [facility] Respiratory rate 2020-09-24 16:20:00 18 /min [facility] Oxygen saturation in 2020-09-24 16:20:00 97 /min [facility] of Arterial blood by [facility] Body weight 2020-09-23 09:47:00 84.426 kg [facility] BMI 2020-09-23 09:47:00 25.96 kg/m2 [facility] Body height 2020-09-22 03:30:00 180.3 cm [facility] Heart rate 2020-08-28 15:00:00 79 /min [facility] Respiratory rate 2020-08-28 15:00:00 18 /min [facility] Oxygen saturation in 2020-08-28 15:00:00 95 /min [facility] Arterial blood by [facility] Systolic blood 2020-08-28 12:34:00 156 mm[Hg] [facility] Diastolic blood 2020-08-28 12:34:00 91 mm[Hg] [facility] Body temperature 2020-08-28 12:34:00 36.5 Leda [facility] Body weight 2020-08-27 09:00:00 87.346 kg [facility] BMI 2020-08-27 09:00:00 26.86 kg/m2 [facility] Body height 2020-08-26 20:14:00 180.3 cm [facility] Respiratory rate 2020-08-23 20:25:00 20 /min [facility] Oxygen saturation in 2020-08-23 20:25:00 100 /min [facility] Arterial blood by [facility] P[facility] Branch Systolic blood 2020-08-23 16:52:00 137 mm[Hg] [facility] Diastolic blood 2020-08-23 16:52:00 101 mm[Hg] [facility]ive rs[facility] of [facility] Heart rate 2020-08-23 16:52:00 80 /min [facility] Body temperature 2020-08-23 16:52:00 35.61 Leda Univ ersity of [facility] Body height 2020-08-22 19:25:00 180.3 cm [facility] [place] Body weight 2020-08-22 19:25:00 85.458 kg [facility] BMI 2020-08-22 19:25:00 26.28 kg/m2 Universi ty of [facility] Systolic blood 2020-04-21 03:00:00 155 mm[Hg] Univer [facility]ity of pressure [facility] Diastolic blood 2020-04-21 03:00:00 91 mm[Hg] Unive rsity of pressure [facility] Heart rate 2020-04-21 03:00:00 88 /min Universi ty of [facility] Respiratory rate 2020-04-21 03:00:00 18 /min Univ ersity of [facility] Oxygen saturation in 2020-04-21 03:00:00 94 /min [facility] Arterial blood by [facility] Pulse oxim[facility] Branch Body temperature 2020-04-20 22:11:00 37.56 Leda Univ ersity of [facility] Body weight 2020-04-20 22:11:00 89.812 kg [facility] [place] BMI 2020-04-20 22:11:00 27.62 kg/m2 [facility] of [facility] Systolic blood 2020-03-07 17:05:00 135 mm[Hg] Univer sity of pressure [facility] Diastolic blood 2020-03-07 17:05:00 88 mm[Hg] Unive rsity of pressure [facility] Heart rate 2020-03-07 17:05:00 79 /min [facility] of [facility] Body temperature 2020-03-07 17:05:00 36.67 Leda Univ ersity of [facility] Body height 2020-03-07 17:05:00 180.3 cm [facility]i ty of [facility] Body weight 2020-03-07 17:05:00 89.812 kg [facility] BMI 2020-03-07 17:05:00 27.62 kg/m2 [facility] Systolic blood 2020-03-07 15:29:00 113 mm[Hg] Univer sity of pressure [facility] Diastolic blood 2020-03-07 15:29:00 76 mm[Hg] Unive rsity of pressure [facility] Heart rate 2020-03-07 15:29:00 93 /min [facility] ty of [facility] Body temperature 2020-03-07 15:29:00 37.06 Leda Univ ersity of [facility] Respiratory rate 2020-03-07 15:29:00 18 /min Univ ersity of [facility] Body height 2020-03-07 15:29:00 180.3 cm [facility] Body weight 2020-03-07 15:29:00 89.994 kg [facility] BMI 2020-03-07 15:29:00 27.67 kg/m2 [facility] of [facility] Respiratory rate 2020-02-16 22:13:00 16 /min Univ ersity of [facility] Oxygen saturation in 2020-02-16 22:13:00 96 /min [facility] Arterial blood by [facility] Pulse oxim[facility] Branch Systolic blood 2020-02-16 21:58:00 127 mm[Hg] Univer sity of pressure [facility] Diastolic blood 2020-02-16 21:58:00 78 mm[Hg] Unive rsity of pressure [facility] Heart rate 2020-02-16 21:58:00 70 /min [facility]i ty of [facility] Body temperature 2020-02-16 21:58:00 36.56 Leda Univ ersity of [facility] Body weight 2020-02-16 09:45:00 89.812 kg [facility] BMI 2020-02-16 09:45:00 27.62 kg/m2 Universi ty of [facility] Body height 2020-02-10 02:16:00 180.3 cm [facility]i ty of [facility] Systolic blood 2020-02-09 21:27:00 114 mm[Hg] Univer [facility]ity of pressure [facility] Diastolic blood 2020-02-09 21:27:00 79 mm[Hg] Unive rsity of pressure [facility] Heart rate 2020-02-09 21:27:00 86 /min [facility] Body temperature 2020-02-09 21:27:00 36.39 Leda Univ ersity of [facility] Body height 2020-02-09 21:27:00 180.3 cm [facility] Body weight 2020-02-09 21:27:00 88.451 kg [facility] BMI 2020-02-09 21:27:00 27.20 kg/m2 [facility] ty of [facility] Systolic blood 2020-02-02 21:34:00 132 mm[Hg] Univer sity of pressure [facility] Diastolic blood 2020-02-02 21:34:00 76 mm[Hg] Unive rsity of pressure [facility] Heart rate 2020-02-02 21:34:00 72 /min Universi ty of [facility] Body temperature 2020-02-02 21:34:00 36.28 Leda Univ ersity of [facility] Respiratory rate 2020-02-02 21:34:00 20 /min Univ ersity of [facility] Oxygen saturation in 2020-02-02 21:34:00 93 /min [facility] of Arterial blood by [facility] Pulse [facility] Branch Body height 2020-01-29 14:00:00 180.3 cm Universi ty of [facility] Body weight 2020-01-29 14:00:00 86.356 kg [facility]i ty of [facility] BMI 2020-01-29 14:00:00 26.55 kg/m2 [facility] ty of [facility] Systolic blood 2020-01-26 13:41:00 112 mm[Hg] Univer sity of pressure [facility] Diastolic blood 2020-01-26 13:41:00 82 mm[Hg] Unive rsity of pressure [facility] Heart rate 2020-01-26 13:41:00 93 /min Universi ty of [facility] Body temperature 2020-01-26 13:41:00 36.89 Leda Univ ersity of [facility] Respiratory rate 2020-01-26 13:41:00 16 /min Univ ersity of [facility] Body height 2020-01-26 13:41:00 180.3 cm Universi ty of [facility] Body weight 2020-01-26 13:41:00 87.227 kg [facility] BMI 2020-01-26 13:41:00 26.82 kg/m2 [facility] ty of [facility] Systolic blood 2020-01-20 17:05:00 154 mm[Hg] Univer sity of pressure [facility] Diastolic blood 2020-01-20 17:05:00 83 mm[Hg] Unive rsity of pressure [facility] Respiratory rate 2020-01-20 17:05:00 12 /min Univ [facility] Oxygen saturation in 2020-01-20 17:05:00 97 /min [facility] Arterial blood by [facility] Pulse [facility] Branch Body temperature 2020-01-20 17:00:00 36.89 Leda Univ [facility] Heart rate 2020-01-20 16:55:00 56 /min [facility] Body weight 2020-01-20 08:43:00 89.359 kg [facility] BMI 2020-01-20 08:43:00 27.48 kg/m2 [facility] Body height 2020-01-16 07:43:00 180.3 cm [facility] Systolic blood 2020-01-11 15:42:00 125 mm[Hg] Univer [facility]ity of [facility] Diastolic blood 2020-01-11 15:42:00 91 mm[Hg] Unive rsity of pressure [facility] Heart rate 2020-01-11 15:42:00 97 /min [facility] Body temperature 2020-01-11 15:42:00 36.72 Leda [facility] Respiratory rate 2020-01-11 15:42:00 18 /min Univ [facility] Oxygen saturation in 2020-01-11 15:42:00 99 /min [facility] Arterial blood by [facility] P[facility] Branch Body weight 2020-01-11 09:55:00 89.926 kg [facility] BMI 2020-01-11 09:55:00 27.65 kg/m2 [facility] Body height 2020-01-06 01:20:00 180.3 cm [facility] Systolic blood 2020-01-05 20:17:00 144 mm[Hg] Univer [facility]ity of [facility] Diastolic blood 2020-01-05 20:17:00 91 mm[Hg] Unive rsity of pressure [facility] Heart rate 2020-01-05 20:16:00 125 /min [facility] Body temperature 2020-01-05 20:16:00 37.67 Leda [facility] Respiratory rate 2020-01-05 20:16:00 20 /min [facility] Body height 2020-01-05 20:16:00 180.3 cm [facility] Body weight 2020-01-05 20:16:00 90.719 kg [facility] BMI 2020-01-05 20:16:00 27.89 kg/m2 [facility] Oxygen saturation in 2020-01-05 20:16:00 97 /min [facility] Arterial blood by [facility] Pulse [facility] Branch Systolic blood 2019-12-16 14:13:00 136 mm[Hg] Univer sity of pressure [facility] Diastolic blood 2019-12-16 14:13:00 94 mm[Hg] Unive rsity of pressure [facility] Heart rate 2019-12-16 14:13:00 123 /min [facility] Body height 2019-12-16 14:13:00 180.3 cm [facility] Body weight 2019-12-16 14:13:00 90.719 kg [facility] BMI 2019-12-16 14:13:00 27.89 kg/m2 [facility] Systolic blood 2019-06-04 21:35:00 141 mm[Hg] Univer sity of pressure [facility] Diastolic blood 2019-06-04 21:35:00 84 mm[Hg] Unive rsity of pressure [facility] Heart rate 2019-06-04 21:35:00 79 /min [facility] Body temperature 2019-06-04 21:35:00 37.33 Ldea Univ ersity of [facility] Body height 2019-06-04 21:35:00 180.3 cm [facility] Body weight 2019-06-04 21:35:00 83.915 kg [facility] BMI 2019-06-04 21:35:00 25.80 kg/m2 [facility] Oxygen saturation in 2019-06-04 21:35:00 94 /min [facility] Arterial blood by [facility] Pulse [facility] Branch Systolic blood 2019-05-07 22:14:00 148 mm[Hg] Univer sity of pressure [facility] Diastolic blood 2019-05-07 22:14:00 90 mm[Hg] Unive rsity of pressure [facility] Heart rate 2019-05-07 22:14:00 80 /min [facility]i ty of [facility] Body temperature 2019-05-07 22:14:00 37.22 Leda [facility] Body height 2019-05-07 22:14:00 180.3 cm Universi [facility] Body weight 2019-05-07 22:14:00 87.091 kg Universi [facility] BMI 2019-05-07 22:14:00 26.78 [facility] in 2019-05-07 22:14:00 95 /min [facility] Arterial blood by [facility] Pulse oximetry Branch Systolic blood 2019-04-28 22:21:00 132 mm[Hg] Univer sity of pressure [facility] Diastolic blood 2019-04-28 22:21:00 78 mm[Hg] [facility] Heart rate 2019-04-28 22:21:00 79 /min Universi [facility] Body temperature 2019-04-28 22:21:00 36.56 Leda [facility] Body height 2019-04-28 22:21:00 182.9 cm Universi [facility] Body weight 2019-04-28 22:21:00 [facility].726 [facility] 2019-04-28 22:21:00 26.23 kg/m2 [facility] Procedures Procedure Date / Time Performing Clinician Source Performed BASIC METABOLIC PANEL (NA, K, CL, 2021-02-08 Meredith Rosas [place] [id number], GLUCOSE, BUN, CREATININE, 10:48:00 T [facility]) Branch CBC WITH DIFF 2021-02-08 RalphMeagan power [place] of 10:48:00 [facility] FREE T4 2021-02-07 Ralph, [facility] of 09:20:00 [facility] COMP. METABOLIC PANEL (54596) 2021-02-07 Chidi Krishnan iversity of 09:20:00 [facility] CBC WITH DIFF 2021-02-07 Chidi Krishnan University of 09:20:00 [facility] XR ABDOMEN 1 VW 2021-02-07 [facility] of 08:48:41 [facility] XR CHEST 1 VW 2021-02-07 [facility] of 08:48:41 [facility] POCT GLUCOSE (AUTOMATED) 2021-02-07 Chidi Krishnan [facility] ity of 06:06:00 [facility] HB ECG ROUTINE & RHYTHM STRIP 2021-02-07 Girish Haney iversity of 04:21:29 [facility] TROPONIN I 2021-02-07 Girish Haney [place] of 04:20:00 [facility] POCT GLUCOSE (AUTOMATED) 2021-02-07 Chidi Krishnan [facility] ity of 03:59:00 [facility] DUPLEX VENOUS LEGS BILATERAL - BY 2021-02-06 Massimo Krishnan [facility] VASCULAR LAB 18:11:38 [facility] TRANSTHORACIC ECHO (TTE) COMPLETE 2021-02-06 Massimo Krishnan [place] [facility] 17:51:00 [facility] HEPATIC FUNCTION PANEL (64364) 2021-02-06 Chidi Krishnan niversity of (ALB,T.PRO,BILI 11:39:00 [facility],BU/BC,ALT,AST,ALK PHOS) Branch BASIC METABOLIC PANEL (NA, K, CL, 2021-02-06 Massimo Krishnan [place] of CO2, GLUCOSE, BUN, CREATININE, 11:39:00 [facility]) Branch CBC WITH DIFF 2021-02-06 Chidi Krishnan of 11:39:00 [facility] SPUTUM CULTURE 2021-02-06 Casie David [facility] 04:48:00 [facility] URINE CULTURE 2021-02-06 Chidi Krishnan of 04:39:00 [facility] CREATINE KINASE 2021-02-06 [facility] 04:36:00 [facility] OSMOLALITY, SERUM OR PLASMA 2021-02-06 Casie David [facility] ersity of 04:36:00 [facility] OSMOLALITY URINE 2021-02-06 Casie David [place] of 04:36:00 [facility] C-REACTIVE PROTEIN 2021-02-06 [facility] 04:36:00 [facility] URINALYSIS 2021-02-06 [facility] 04:36:00 [facility] SODIUM, URINE RANDOM 2021-02-06 [facility] 04:36:00 [facility] PROTEIN CREAT RATIO URINE RANDOM 2021-02-06 Joann lakisha [place] of 04:36:00 [facility] LACTIC ACID WHOLE BLOOD 2021-02-06 Casie David [facility] ty of 04:32:00 [facility] CT SOFT TISSUE NECK W WO CONTRAST 2021-02-06 Casie David [place] of 04:03:00 [facility] BLOOD CULTURE SCREEN 2021-02-05 Chidi Krishnan [place] of 22:11:00 [facility] XR FOOT 3+ VW LEFT 2021-02-05 Eulogio [facility] o f 22:03:38 [facility] BLOOD CULTURE SCREEN 2021-02-05 Chidi Krishnan [place] [facility] 21:55:00 [facility] C-REACTIVE PROTEIN 2021-02-05 Ron Chidi [place] of 21:55:00 [facility] C4 COMPLEMENT 2021-02-05 Ron Chidi [place] of 21:55:00 [facility] SEDIMENTATION RATE 2021-02-05 Ron Chidi [place] of 21:55:00 [facility] PROCALCITONIN 2021-02-05 Joann [facility] of 21:55:00 [facility] ASSIGNMENT OF BENEFITS 2021-02-05 Doctor Unassigned, No Uni versity of 17:15:48 Name [facility] COVID-19 (ID NOW RAPID TESTING) 2021-02-05 Lennox Crystal of 16:57:00 [facility] LAB ONLY COVID INTERPRETATION 2021-02-05 Lennox Crystal iversity of 16:57:00 [facility] URIC ACID 2021-02-05 Chidi Krishnan [place] of 16:56:00 [facility] TROPONIN I 2021-02-05 Lennox Crystal of 16:56:00 [facility] FREE T4 2021-02-05 Chidi Krishnan [place] of 16:56:00 [facility] THYROID STIMULATING HORMONE 2021-02-05 Chidi Krishnan [facility] ersity of 16:56:00 [facility] COMP. METABOLIC PANEL (72273) 2021-02-05 Lennox Crystal Un iversity of 16:56:00 [facility] CBC WITH DIFF 2021-02-05 Lennox Crystal of 16:56:00 [facility] PROTHROMBIN TIME / INR 2021-02-05 Lennox Crystal Universit y of 16:56:00 [facility] ACTIVATED PARTIAL THRMPLAS TOBY 2021-02-05 Lennox Crystal U niversity of 16:56:00 [facility] N-TERMINAL PRO-BNP 2021-02-05 Lennox Crystal of 16:56:00 [facility] FREE T3 2021-02-05 Chidi Krishnan [place] of 16:56:00 [facility] HB ECG ROUTINE & RHYTHM STRIP 2021-02-05 Lennox Crystal iversity of 16:49:15 [facility] CONSENT/REFUSAL FOR DIAGNOSIS AND 2021-02-05 Doctor Lesvia cortes [facility] of TREATMENT 16:41:57 Name [facility] XR NECK SOFT TISSUE 2021-01-31 [facility] o f 19:33:03 [facility] LIPASE 2021-01-31 [facility] of 10:05:00 [facility] COMP. METABOLIC PANEL ([id number]) 2021-01-31 Damian Enoch Un iversity of 10:05:00 [facility] CBC WITH DIFF 2021-01-31 [facility] of 10:05:00 [facility] VANCOMYCIN TROUGH 2021-01-31 Mariposa Ortiz [place] of 00:30:00 [facility] PHOSPHORUS 2021-01-30 Chidi Krishnan [place] of 15:41:00 [facility] LIPASE 2021-01-30 Ron Chidi [place] of 15:41:00 [facility] MAGNESIUM 2021-01-30 Ron [facility] of 15:41:00 [facility] COMP. METABOLIC PANEL ([id number]) 2021-01-30 Chidi Krishnan Un iversity of 15:41:00 [facility] MRSA / MSSA SCREEN BY PCRCLAIRE 2021-01-30 Chidi Krishnan of 03:31:00 [facility] SPUTUM CULTURE 2021-01-29 Dawna [facility] of 08:05:00 [facility] LIPASE 2021-01-29 Erasto [facility] of 07:10:00 [facility] BASIC METABOLIC PANEL (NA, K, CL, 2021-01-29 [facility] of CO2, GLUCOSE, BUN, CREATININE, 07:10:[address] [facility] CBC WITH DIFF 2021-01-29 [facility] of 07:09:00 [facility] POCT GLUCOSE (AUTOMATED) 2021-01-28 Medina Girish [facility] ity of 21:08:00 [facility] POCT GLUCOSE (AUTOMATED) 2021-01-28 Urszula Baeza [facility] sity of 16:32:[address] [facility] CT SOFT TISSUE NECK W CONTRAST 2021-01-28 [facility] U niversity of 15:00:13 [facility] POCT GLUCOSE (AUTOMATED) 2021-01-28 Urszula Baeza [facility] sity of 12:31:00 [facility] COVID-19 (ID NOW RAPID TESTING) 2021-01-28 Urszula Baeza [place] of 06:12:00 [facility] LAB ONLY COVID INTERPRETATION 2021-01-28 Urszula Baeza U niversity of 06:12:00 [facility] [facility] BLOOD CULTURE SCREEN 2021-01-28 Urszula Baeza [place] of 05:40:00 [facility] BLOOD CULTURE WORKUP 2021-01-28 Ursuzla Baeza [place] of 05:40:00 [facility] GRAM POSITIVE BLOOD PATHOGENS DNA 2021-01-28 Urszula Baeza [place] of PROBE-AEROBIC 05:40:00 [facility] XR CHEST 1 VW 2021-01-28 Urszula Baeza [place] of 04:23:00 [facility] LIPASE 2021-01-28 Urszula Baeza [place] of 04:15:00 [facility] TROPONIN I 2021-01-28 Urszula Baeza [place] of 04:15:00 [facility] COMP. METABOLIC PANEL ([id number]) 2021-01-28 Urszula Baeza [facility]iversity of 04:15:00 [facility] CBC WITH DIFF 2021-01-28 Urszula Baeza [place] of 04:15:00 [facility] HB ECG ROUTINE & RHYTHM STRIP 2021-01-28 Urszula Baeza U niversity of 03:44:52 [facility] CONSENT/REFUSAL FOR DIAGNOSIS AND 2021-01-28 Doctor Lesvia cortes, No University of TREATMENT 03:28:56 Name [facility] XR CHEST 1 VW 2021-01-21 [place], [facility] of 08:56:19 [facility] LIPASE 2021-01-21 [place], [facility] of 08:50:00 [facility] COMP. METABOLIC PANEL ([id number]) 2021-01-21 Jairo Montague iversity of 08:50:00 [facility] CBC WITH DIFF 2021-01-21 [place] [facility] of 08:50:00 [facility] CONSENT/REFUSAL FOR DIAGNOSIS AND 2021-01-21 Doctor Lesvia cortes, No University of TREATMENT 08:32:28 Name [facility] HEPATIC FUNCTION PANEL ([id number]) 2021-01-06 Beth, [facility]ines[facility] of (ALB,T.PRO,BILI 08:18:00 [facility] T,BU/BC,ALT,AST,ALK PHOS) Branch BASIC METABOLIC PANEL (NA, K, CL, 2021-01-06 Beth, [facility]insese [facility] of CO2, GLUCOSE, BUN, CREATININE, 08:18:00 [facility] CBC WITH DIFF 2021-01-06 Beth, Finesse [facility] of 08:18:00 [facility] HEPATIC FUNCTION PANEL ([id number]) 2021-01-06 Beth, Finesse [facility] of (ALB,T.PRO,BILI 08:18:00 [facility] T,BU/BC,ALT,AST,ALK PHOS) Branch BASIC METABOLIC PANEL (NA, K, CL, 2021-01-06 Beth, [place] [facility] of CO2, GLUCOSE, BUN, CREATININE, 08:18:00 [facility] CBC WITH DIFF 2021-01-06 Beth, [place]se [facility] of 08:18:00 [facility] ENDOSCOPIC RETROGRADE 2021-01-05 [facility] CHOLANGIOPANCRETOGRAPHY 18:41:00 [facility] dical Branch ENDOSCOPIC RETROGRADE 2021-01-05 [facility] CHOLANGIOPANCRETOGRAPHY 18:41:00 [facility] dical Branch UPPER EUS (ENDO) 2021-01-05 Mandeep Bridges [place] of 18:07:20 [facility] UPPER EUS (ENDO) 2021-01-05 Mandeep Bridges [place] of 18:07:20 [facility] LIPASE 2021-01-05 June Mccall [place] of 10:05:00 [facility] CBC WITH DIFF 2021-01-05 Cal, [facility] of 10:05:00 [facility] LIPASE 2021-01-05 [facility] of 10:05:00 [facility] CBC WITH DIFF 2021-01-05 Cal, [facility] of 10:05:00 [facility] CT ABDOMEN PELVIS W CONTRAST 2021-01-05 June Mccall Uni versity of 00:26:26 [facility] CT ABDOMEN PELVIS W CONTRAST 2021-01-05 June Mccall Uni versity of 00:26:26 [facility] COVID-19 (ID NOW RAPID TESTING) 2021-01-04 [place], [facility] of 19:28:00 [facility] LIPASE 2021-01-04 [facility] of 18:19:00 [facility] COMP. METABOLIC PANEL ([id number]) 2021-01-04 Jairo Montague Un iversity of 18:19:00 [facility] CBC WITH DIFF 2021-01-04 [place] [facility] of 18:19:00 [facility] CONSENT/REFUSAL FOR DIAGNOSIS AND 2021-01-[address] [facility] 17:24:47 Name [facility] LIPASE 2020-12-22 Chidi Krishnan [place] of 10:33:00 [facility] COMP. METABOLIC PANEL ([id number]) 2020-12-22 Chidi Krishnan Un iversity of 10:33:00 [facility] CBC WITH DIFF 2020-12-22 Chidi Krishnan of 10:33:00 [facility] LIPASE 2020-12-21 Michelle Brennan [place] of 09:49:00 [facility] BASIC METABOLIC PANEL (NA, K, CL, 2020-12-21 Hay Brennan [facility] of CO2, GLUCOSE, BUN, CREATININE, 09:49:00 [facility]FF 2020-12-21 Michelle Brennan [place] of 09:49:00 [facility] BASIC METABOLIC PANEL (NA, K, CL, 2020-12-20 Yang [facility] of CO2, GLUCOSE, BUN, CREATININE, 08:31:00 [facility] CBC WITH DIFF 2020-12-20 Yang [facility] o f 08:31:00 [facility] MR ABDOMEN W WO CONTRAST MRCP 2020-12-19 Deric Santos Un iversity of 17:29:12 [facility] BASIC METABOLIC PANEL (NA, K, CL, 2020-12-19 Deric Satnos [place] of CO2, GLUCOSE, BUN, CREATININE, 15:25:00 [facility] CBC WITH DIFF 2020-12-19 Deric Santos of 15:25:00 [facility] POCT GLUCOSE (AUTOMATED) 2020-12-18 Deric Santos [facility] ity of 16:30:00 [facility] POCT GLUCOSE (AUTOMATED) 2020-12-18 Deric Santos [facility] ity of 12:39:00 [facility] CBC WITH DIFF 2020-12-18 Yang [facility] o f 08:00:00 [facility] LIPASE 2020-12-18 Deric Santos [place] of 07:59:00 [facility] HEPATIC FUNCTION PANEL ([id number]) 2020-12-18 Deric Santos U [facility]iversity of (ALB,T.PRO,BILI 07:59:00 [facility] T,BU/BC,ALT,AST,ALK PHOS) Branch BASIC METABOLIC PANEL (NA, K, CL, 2020-12-18 Yang [facility] of CO2, GLUCOSE, BUN, CREATININE, 07:59:00 [facility] Branch CT ABDOMEN PELVIS W CONTRAST 2020-12-17 Deric Santos Uni versity of 23:31:56 [facility] CBC WITH DIFF 2020-12-17 Eligio Borden [place] of 09:31:00 [facility] MAGNESIUM 2020-12-17 Eligio Borden [place] of 09:25:00 [facility] BASIC METABOLIC PANEL (NA, K, CL, 2020-12-17 Michi Eligio [place] of CO2, GLUCOSE, BUN, CREATININE, 09:25:00 [facility] POCT GLUCOSE (AUTOMATED) 2020-12-16 Deric Santos Univers ity of 16:09:00 [facility] URINALYSIS 2020-12-16 [place], [facility] of 13:17:00 [facility] POCT GLUCOSE (AUTOMATED) 2020-12-16 Deric Santos [facility] ity of 12:42:00 [facility] BASIC METABOLIC PANEL (NA, K, CL, 2020-12-16 [facility] of CO2, GLUCOSE, BUN, CREATININE, 10:57:00 [facility] WITH DIFF 2020-12-16 [facility] o f 10:57:00 [facility] C-REACTIVE PROTEIN 2020-12-16 [facility] 08:47[facility]00 [facility] POCT GLUCOSE (AUTOMATED) 2020-12-16 Deric Santos [facility] ity of 00:24:00 [facility] POCT GLUCOSE (AUTOMATED) 2020-12-15 Deric Santos [facility] ity of 20:59:00 [facility] BLOOD CULTURE SCREEN 2020-12-15 Singer [facility] of 16:01:00 [facility] CT ABDOMEN PELVIS WO CONTRAST 2020-12-15 Jairo Montague iversity of 15:38:17 [facility] XR CHEST 1 VW 2020-12-15 Jairo [place] of 15:30:49 [facility] LIPASE 2020-12-15 Singer [facility] of 14:18:00 [facility] COMP. METABOLIC PANEL ([id number]) 2020-12-15 Jairo Montague iversity of 14:18:00 [facility] CBC WITH DIFF 2020-12-15 [place] [facility] of 14:18:00 [facility] CONSENT/REFUSAL FOR DIAGNOSIS AND 2020-12-15 Doctor Lesvia cortes [facility] of [facility] 13:57:35 Name [facility] CT ABDOMEN PELVIS WO CONTRAST 2020-12-11 Catalina Costa [place] of 15:13:54 [facility] LIPASE 2020-12-11 Catalina Costa [place] of 14:02:00 [facility] COMP. METABOLIC PANEL ([id number]) 2020-12-11 Catalina Costa [place] of 14:02:00 [facility] CBC WITH DIFF 2020-12-11 Catalina Costa [facility] 14:02:00 [facility] COVID-19 (ID NOW RAPID TESTING) 2020-12-11 Catalina Costa [facility] 14:02:00 [facility] CONSENT/REFUSAL FOR DIAGNOSIS AND 2020-12-[address] [facility] 13:48:01 Name [facility] HEPATIC FUNCTION PANEL ([id number]) 2020-11-30 Girish Haney niversity of (ALB,T.PRO,BILI 08:41:00 [facility] T,BU/BC,ALT,AST,ALK PHOS) Branch BASIC METABOLIC PANEL (NA, K, CL, 2020-11-30 [facility] CO2, GLUCOSE, BUN, CREATININE, 08:41:00 [facility]) Branch LIPASE 2020-11-29 [facility] 09:06:00 [facility] HEPATIC FUNCTION PANEL ([id number]) 2020-11-29 Girish Haney niversity of (ALB,T.PRO,BILI 09:06:00 [facility] T,BU/BC,ALT,AST,ALK PHOS) Branch BASIC METABOLIC PANEL (NA, K, CL, 2020-11-29 [facility] of CO2, GLUCOSE, BUN, CREATININE, 09:06:00 T [facility]) Branch CBC WITH DIFF 2020-11-29 Michelle Brennan [facility] 09:05:00 [facility] MR ABDOMEN WO CONTRAST MRCP 2020-11-28 James Mackenzie Univ ersity of 15:31:27 [facility] PHOSPHORUS 2020-11-28 [facility] of 09:29:00 [facility] MAGNESIUM 2020-11-28 [facility] of 09:29:00 [facility] COMP. METABOLIC PANEL ([id number]) 2020-11-28 JamesMackenzie iversity of 09:29:00 [facility] CBC WITH DIFF 2020-11-28 [facility] of 09:29:00 [facility] PHOSPHORUS 2020-11-27 [facility] of 08:46:00 [facility] LIPASE 2020-11-27 AbdChidi palacios of 08:46:00 [facility] Branch MAGNESIUM 2020-11-27 [facility] [place] of 08:46:00 [facility] Branch COMP. METABOLIC PANEL ([id number]) 2020-11-27 Mackenzie Rojas Un iversity of 08:46:00 [facility] Branch CBC WITH DIFF 2020-11-27 Mackenzie Rojas [place] of 08:46:00 [facility] Branch PHOSPHORUS 2020-11-26 Chidi Krishnan [place] [facility] 09:35:00 [facility] LIPASE 2020-11-26 Chidi Krishnan [place] of 09:35:00 [facility] Branch MAGNESIUM 2020-11-26 Chidi Krishnan [place] of 09:35:00 [facility] Branch COMP. METABOLIC PANEL ([id number]) 2020-11-26 Chidi Krishnan Un iversity of 09:35:00 [facility] CBC WITH DIFF 2020-11-26 Chidi Krishnan of 09:35:00 [facility] HEPATITIS B SURFACE ANTIGEN 2020-11-26 Chidi Krishnan Univ ersity of 09:35:00 [facility] Branch HCV ANTIBODY 2020-11-26 Chidi Krishnan of 09:35:00 [facility] HEPATITIS A VIRUS ANTIBODY IGM 2020-11-26 Chidi Krishnan U niversity of 09:35:00 [facility] HEPATITIS B CORE ANTIBODY IGM 2020-11-26 Chidi Krishnan Un iversity of 09:35:00 [facility] Branch CREATINE KINASE 2020-11-25 Chidi Krishnan of 13:13:00 [facility] Branch COMP. METABOLIC PANEL ([id number]) 2020-11-25 Chidi Krishnan Un iversity of 13:13:00 [facility] Branch LIPASE 2020-11-25 Chidi Krishnan of 08:55:00 [facility] CBC WITH DIFF 2020-11-25 Chidi Krishnan of 08:55:00 [facility] Branch PHOSPHORUS 2020-11-24 [facility] of 10:01:00 [facility] Branch LIPASE 2020-11-24 Chidi Krishnan [place] of 10:01:00 [facility] Branch MAGNESIUM 2020-11-24 [facility] of 10:01:00 [facility] HEPATIC FUNCTION PANEL ([id number]) 2020-11-24 Girish Haney U niversity of (ALB,T.PRO,BILI 10:01:00 [facility],BU/BC,ALT,AST,ALK PHOS) Branch BASIC METABOLIC PANEL (NA, K, CL, 2020-11-24 [facility] of CO2, GLUCOSE, BUN, CREATININE, 10:01:00 [facility] Branch LIPID PANEL ([id number])(TOTAL 2020-11-24 [facility] sit of CHOLESTEROL, TRIGLYCERIDES, HDL) 10:01:00 [facility] CBC WITH DIFF 2020-11-24 [facility] of 10:01:00 [facility] LACTIC ACID WHOLE BLOOD 2020-11-24 Malcolm Rivera Univers ity of 10:01:00 [facility] URINALYSIS 2020-11-24 Lnenox [place] of 02:08:00 [facility] CT ABDOMEN PELVIS W CONTRAST 2020-11-24 Malcolm Rivera Un iversity of 01:31:47 [facility] LACTIC ACID WHOLE BLOOD 2020-11-24 Malcolm Rivera Univers ity of 00:51:00 [facility] COVID-19 (ID NOW RAPID TESTING) 2020-11-24 Lennox Crystal of 00:51:00 [facility] LAB ONLY COVID INTERPRETATION 2020-11-24 Lennox Crystal Un iversity of 00:51:00 [facility] LIPASE 2020-11-24 Lennox Crystal of 00:50:00 [facility] TROPONIN I 2020-11-24 Malcolm Rivera of 00:50:00 [facility] COMP. METABOLIC PANEL ([id number]) 2020-11-24 Lennox Crystal Un iversity of 00:50:00 [facility] CBC WITH DIFF 2020-11-24 Lennox Crystal of 00:50:00 [facility] HB ECG ROUTINE & RHYTHM STRIP 2020-11-24 Malcolm Rivera U niversity of 00:48:44 [facility] CONSENT/REFUSAL FOR DIAGNOSIS AND 2020-11-24 Doctor Lesvia cortes, [facility] of [facility] 00:17:46 Name [facility] CT ABDOMEN PELVIS W CONTRAST 2020-10-31 Urszula Baeza Un iversity of 06:21:26 [facility] [place] LIPASE 2020-10-31 Urszula Baeza [place] of 04:24:00 [facility] TROPONIN I 2020-10-31 Urszula Baeza [place] of 04:24:00 [facility] COMP. METABOLIC PANEL ([id number]) 2020-10-31 Urszula Baeza U niversity of 04:24:00 [facility] CBC WITH DIFF 2020-10-31 Urszula Baeza [place] of 04:24:00 [facility] CONSENT/REFUSAL FOR DIAGNOSIS AND 2020-10-31 Doctor Lesvia cortes, No University of TREATMENT 03:32:25 Name [facility] URINALYSIS 2020-10-18 Singer [facility] of 08:24:00 [facility] CT ABDOMEN PELVIS W CONTRAST 2020-10-18 Jairo Montague [facility] versity of 08:08:09 [facility] LIPASE 2020-10-18 Singer [facility] of 07:49:00 [facility] COMP. METABOLIC PANEL ([id number]) 2020-10-18 Jairo Montague Un iversity of 07:49:00 [facility] CBC WITH DIFF 2020-10-18 Jairo Montague [place] of 07:49:00 [facility] NOTICE OF PRIVACY PRACTICES 2020-10-18 Doctor Lissy, Tono o University of 07:20:12 Name [facility] CT ABDOMEN PELVIS WO CONTRAST 2020-10-13 Urszula Baeza U niversity of 09:07:06 [facility] LIPASE 2020-10-13 Urszula Baeza [place] of 07:35:00 [facility] COMP. METABOLIC PANEL ([id number]) 2020-10-13 Urszula Baeza U niversity of 07:35:00 [facility] CBC WITH DIFF 2020-10-13 Urszula Baeza [place] of 07:35:00 [facility] CONSENT/REFUSAL FOR DIAGNOSIS AND 2020-10-13 Doctor Lesvia cortes, No University of TREATMENT 07:16:13 Name [facility] MEDICAL RELEASE/CLEARANCE FORMS 2020-10-07 Doctor Bruna Jimenes of 05:01:00 Name [facility] URINALYSIS 2020-09-28 Lennox Crystal of 15:06:00 [facility] CT ABDOMEN PELVIS WO CONTRAST 2020-09-28 Lennox Crystal iversity of 14:03:20 [facility] LIPASE 2020-09-28 Lennox Crystal of 13:42:00 [facility] TROPONIN I 2020-09-28 Lennox Crystal of 13:42:00 [facility] HEPATIC FUNCTION PANEL ([id number]) 2020-09-28 Lennox Crystal niversity of (ALB,T.PRO,BILI 13:42:00 [facility],BU/BC,ALT,AST,ALK PHOS) Branch BASIC METABOLIC PANEL (NA, K, CL, 2020-09-28 Carlos Crystal [place] of CO2, GLUCOSE, BUN, CREATININE, 13:42:00 [facility] CBC WITH DIFF 2020-09-28 Lennox Crystal of 13:42:00 [facility] PROTHROMBIN TIME / INR 2020-09-28 Lennox Crystalit y of 13:42:00 [facility] ACTIVATED PARTIAL THRMPLAS TOBY 2020-09-28 Lennox Crystal niversity of 13:42:00 [facility] N-TERMINAL PRO-BNP 2020-09-28 Lennox Crystal of 13:42:00 [facility] LACTIC ACID WHOLE BLOOD 2020-09-28 Lennox Crystal ty of 13:41:00 [facility] NOTICE OF PRIVACY PRACTICES 2020-09-28 Doctor Unasscynthia, Tono powell [place] of 13:14:18 Name [facility] COMP. METABOLIC PANEL ([id number]) 2020-09-24 Meagan Rosas Un iversity of 09:23:00 [facility] CBC WITH DIFF 2020-09-24 Meagan Rosas of 09:23:00 [facility] LIPASE 2020-09-23 Erasto [facility] of 09:36:00 [facility] COMP. METABOLIC PANEL ([id number]) 2020-09-23 Meagan Rosas Un iversity of 09:36:00 [facility] OCCULT (GUAIAC) BLOOD 2020-09-23 [facility] 01:22:00 [facility] CBC WITH DIFF 2020-09-22 Meagan Rosas [place] of 19:48:00 [facility] LIPASE 2020-09-22 [facility] of 09:39:00 [facility] HEPATIC FUNCTION PANEL ([id number]) 2020-09-22 Deric Santos niversity of (ALB,T.PRO,BILI 09:39:00 [facility],BU/BC,ALT,AST,ALK PHOS) [place] LIPID PANEL ([id number])(TOTAL 2020-09-22 Deric Santos [facility] sity of CHOLESTEROL, TRIGLYCERIDES, HDL) 09:39:00 [facility] PATIENT AGREEMENTS AND CONTRACTS 2020-09-22 Doctor Unassign ed, [facility] of 05:01:00 Name [facility] XR CHEST 1 VW 2020-09-21 Taras Us [place] of 22:19:25 [facility] LIPASE 2020-09-21 Taras Us [place] of 21:54:00 [facility] MAGNESIUM 2020-09-21 Taras Us [place] of 21:54:00 [facility] TROPONIN I 2020-09-21 Taras Us [place] of 21:54:00 [facility] COMP. METABOLIC PANEL ([id number]) 2020-09-21 Taras Us Un iversity of 21:54:00 [facility] ETHANOL 2020-09-21 [facility] of 21:54:00 [facility] CBC WITH DIFF 2020-09-21 Taras Us [place] of 21:54:00 [facility] URINALYSIS 2020-09-21 Taras Us [place] of 21:54:00 [facility] N-TERMINAL PRO-BNP 2020-09-21 Taras Us [facility] 21:54:00 [facility] COVID-19 (ID NOW RAPID TESTING) 2020-09-21 Taras Us [place] of 21:54:00 [facility] LAB ONLY COVID INTERPRETATION 2020-09-21 Taras Us Un iversity of 21:54:00 [facility] EKG-12 LEAD 2020-09-21 Doctor Unassigned, [facility] of 21:22:11 Name [facility] EMERGENCY SERVICES AGREEMENTS AND 2020-09-21 Doctor Lesvia cortes, No University of AUTHORIZATIONS 05:01:00 Name [facility] EXTERNAL PROVIDER RECORDS 2020-09-13 Doctor Unassigned, [facility] of 05:01:00 Name [facility] COMP. METABOLIC PANEL ([id number]) 2020-08-28 Deric Santos iversity of 08:48:00 [facility] LIPID PANEL ([id number])(TOTAL 2020-08-28 [facility] of CHOLESTEROL, TRIGLYCERIDES, HDL) 08:48:00 [facility] CBC WITH DIFF 2020-08-28 Deric Santos [place] of 08:48:00 [facility] VITAMIN B12, LEVEL 2020-08-28 Deric Santos [place] of 02:53:00 [facility] XR CHEST 1 VW 2020-08-27 Deric Santos [place] of 17:52:28 [facility] THYROID STIMULATING HORMONE 2020-08-27 Deric Santos [facility] ersity of 14:31:00 [facility] BASIC METABOLIC PANEL (NA, K, CL, 2020-08-27 [facility] of CO2, GLUCOSE, BUN, CREATININE, 14:31:00 [facility] LIPID PANEL ([id number])(TOTAL 2020-08-[facility] CHOLESTEROL, TRIGLYCERIDES, HDL) 14:31:00 [facility] LIPASE 2020-08-27 Michelle molina [place] of 09:18:00 [facility] MAGNESIUM 2020-08-27 [facility] 09:18:00 [facility] HEPATIC FUNCTION PANEL ([id number]) 2020-08-27 [facility] of (ALB,T.PRO,BILI 09:18:00 [facility],BU/BC,ALT,AST,ALK PHOS) Branch BASIC METABOLIC PANEL (NA, K, CL, 2020-08-27 Hay molina [facility] of CO2, GLUCOSE, BUN, CREATININE, 09:18:00 [facility] CBC WITH DIFF 2020-08-27 Michelle Brennan [place] of 09:18:00 [facility] US ABDOMEN COMPLETE 2020-08-26 Michelle Brennan [place] of 23:42:45 [facility] URINALYSIS 2020-08-26 [facility] of 19:42:00 [facility] COVID-19 (ID NOW RAPID TESTING) 2020-08-26 Whitney hdez [facility] of 17:49:00 [facility] CT ABDOMEN PELVIS WO CONTRAST 2020-08-26 [facility] of 15:56:41 [facility] XR CHEST 2 VW 2020-08-26 [facility] of 15:43:15 [facility] LIPASE 2020-08-26 [facility] of 14:17:00 [facility] COMP. METABOLIC PANEL ([id number]) 2020-08-26 [facility] of 14:17:00 [facility] ETHANOL 2020-08-26 [facility] of 14:17:00 [facility] CBC WITH DIFF 2020-08-26 [facility] of 14:17:00 [facility] CONSENT/REFUSAL FOR DIAGNOSIS AND 2020-08-26 Doctor Lesvia cortes, [facility] 14:05:20 Name [facility] LIPASE 2020-08-23 Chidi Krishnan [place] of 08:47:00 [facility] MAGNESIUM 2020-08-23 [facility] of 08:47:00 [facility] BASIC METABOLIC PANEL (NA, K, CL, 2020-08-23 Massimo Krishnan [facility] of CO2, GLUCOSE, BUN, CREATININE, 08:47:00 [facility] [place]) Branch CBC WITH DIFF 2020-08-23 Chidi Krishnan [place] of 08:47:00 [facility] COVID-19 (ID NOW RAPID TESTING) 2020-08-22 Jairo Montague of 16:46:00 [facility] CT ABDOMEN PELVIS WO CONTRAST 2020-08-22 Jairo Montague iversity of 15:59:37 [facility] BLOOD CULTURE SCREEN 2020-08-22 Jairo Montague of 15:25:00 [facility] LACTIC ACID WHOLE BLOOD 2020-08-22 Jairo Montaguei ty of 15:24:00 [facility] PHOSPHORUS 2020-08-22 Chidi Krishnan of 14:48:00 [facility] TRIGLYCERIDES 2020-08-22 Chidi Krishnan of 14:48:00 [facility] LIPASE 2020-08-22 Jairo Montague [place] of 14:48:00 [facility] MAGNESIUM 2020-08-22 Chidi Krishnan [place] of 14:48:00 [facility] COMP. METABOLIC PANEL ([id number]) 2020-08-22 Jairo Montague Un iversity of 14:48:00 [facility] ETHANOL 2020-08-22 Chidi Krishnan [place] of 14:48:00 [facility] CBC WITH DIFF 2020-08-22 Jairo Montague [place] of 14:48:00 [facility] EKG-12 LEAD 2020-08-22 Singer Jairo [place] of 14:37:39 [facility] CONSENT/REFUSAL FOR DIAGNOSIS AND 2020-08-22 Doctor Lesvia cortes, No University of TREATMENT 14:10:58 Name [facility] URINALYSIS 2020-04-20 Tati Lazo [place] of 23:57:00 [facility] CT ABDOMEN PELVIS WO CONTRAST 2020-04-20 Tati Lazo Un iversity of 23:53:58 [facility] LIPASE 2020-04-20 Tati Lazo [place] 23:52:00 [facility] THYROID STIMULATING HORMONE 2020-04-20 Tati Lazo Univ ersity of 23:52:00 [facility] COMP. METABOLIC PANEL (56173) 2020-04-20 Tati Lazo Un iversity of 23:52:00 [facility] CBC WITH DIFF 2020-04-20 Tati Lazo [place] 23:09:00 [facility] NOTICE OF PRIVACY PRACTICES 2020-04-20 Doctor Unasscynthia, N o University of 22:04:15 Name [facility] CONSENT/REFUSAL FOR DIAGNOSIS AND 2020-04-20 Doctor Lesvia cortes, No University of TREATMENT 22:04:01 Name [facility] EXTERNAL PROVIDER RECORDS 2020-03-28 Doctor Unassigned, No University of 06:01:00 Name [facility] COMP. METABOLIC PANEL ([id number]) 2020-02-16 Chidi Krishnan Un iversity of 08:17:00 [facility] CBC WITH DIFF 2020-02-16 Chidi Krishnan [place] 08:17:00 [facility] FL TIME OR (NON-REPORTABLE) 2020-02-15 Cindy Rodriguez Uni versity of 20:55:25 [facility] LAPAROSCOPIC CHOLECYSTECTOMY 2020-02-15 Cindy Rodriguez Un iversity of 19:25:00 [facility] INTRAOPERATIVE CHOLANGIOGRAM 2020-02-15 Cindy Rodriguez Un iversity of 19:25:00 [facility] GAMMA GLUTAMYLTRANSFERASE 2020-02-13 [facility], Un iversity of 14:13:00 [facility] HEPATIC FUNCTION PANEL ([id number]) 2020-02-13 Rico Gomez , [place] of (ALB,T.PRO,BILI 14:13:00 [facility],BU/BC,ALT,AST,ALK PHOS) Branch BASIC METABOLIC PANEL (NA, K, CL, 2020-02-13 Rico Liriano [facility], [place] of CO2, GLUCOSE, BUN, CREATININE, 14:13:00 [facility] Medical CA) Branch CBC WITHOUT DIFF 2020-02-13 [facility] 14:13:00 [facility] PROTHROMBIN TIME / INR 2020-02-13 [facility] of 14:13:00 [facility] LIPASE 2020-02-12 Chidi Krishnan [place] of 11:45:00 [facility] COMP. METABOLIC PANEL ([id number]) 2020-02-12 Chidi Krishnan Un iversity of 11:45:00 [facility] XR CHEST 1 VW 2020-02-11 Chidi Krishnan [place] 23:22:07 [facility] ESOPHAGOGASTRODUODENOSCOPY 2020-02-11 Fan Espinal [place] of 18:37:00 [facility] ESOPHAGEAL DILATATION 2020-02-11 Fan Espinal [facility] ersity of 18:37:00 [facility] EGD (ENDO) 2020-02-11 Mandeep Bridges [place] f 17:32:59 [facility] LIPASE 2020-02-11 Chidi Krishnan [place] of 11:56:00 [facility] BASIC METABOLIC PANEL (NA, K, CL, 2020-02-11 Massimo Krishnan [facility] CO2, GLUCOSE, BUN, CREATININE, 11:56:00 [facility]) Branch CBC WITH DIFF 2020-02-11 Chidi Krishnan [place] 11:56:00 [facility] GLYCOSYLATED HEMOGLOBIN (A1C) 2020-02-11 Chidi Krishnan iversity of 11:56:00 [facility] RAPID STREP SCREEN FOR GROUP A 2020-02-10 Chidi Krishnan niversity of 20:25:00 [facility] THROAT CULTURE 2020-02-10 Chidi Krishnan [place] 20:24:00 [facility] LIPASE 2020-02-10 Chidi Krishnan [place] of 08:30:00 [facility] HEPATIC FUNCTION PANEL ([id number]) 2020-02-10 Chidi Krishnan niversity of (ALB,T.PRO,BILI 08:30:00 [facility],BU/BC,ALT,AST,ALK PHOS) Branch BASIC METABOLIC PANEL (NA, K, CL, 2020-02-10 Massimo Krishnan [facility] CO2, GLUCOSE, BUN, CREATININE, 08:30:00 [facility]) Branch CBC WITH DIFF 2020-02-10 Chidi Krishnan [place] 08:30:00 [facility] VITAMIN B12, LEVEL 2020-02-10 [facility] [place] of 04:21:00 [facility] COVID-19 (ID NOW RAPID TESTING) 2020-02-10 Tati Lazo [place] of 00:22:00 [facility] URINALYSIS 2020-02-09 Tati Lazo [place] 23:01:00 [facility] LIPASE 2020-02-09 Tati Lazo [place] 22:53:00 [facility] TROPONIN I 2020-02-09 Tati Lazo [place] 22:53:00 [facility] COMP. METABOLIC PANEL ([id number]) 2020-02-09 Tati Lazo Un iversity of 22:53:00 [facility] CBC WITH DIFF 2020-02-09 Tati Lazo [place] 22:53:00 [facility] HB ECG ROUTINE & RHYTHM STRIP 2020-02-09 Tati Lazo Un iversity of 22:44:32 [facility] BASIC METABOLIC PANEL (NA, K, CL, 2020-02-02 [facility] of CO2, GLUCOSE, BUN, CREATININE, 09:56:00 [facility]) Branch CBC WITH DIFF 2020-02-02 [facility] of 09:56:00 [facility] EGD (ENDO) 2020-02-01 GivensNaga bahenaFormerly [facility] of 17:12:49 [facility] ESOPHAGOGASTRODUODENOSCOPY 2020-02-01 Sadiq Napier Univ rsity of 17:01:00 [facility] BASIC METABOLIC PANEL (NA, K, CL, 2020-02-01 [facility] CO2, GLUCOSE, BUN, CREATININE, 09:27:00 [facility]) Branch CBC WITH DIFF 2020-02-01 [facility] of 09:27:00 [facility] GC & CHLAMYDIA AMPLIFIED ASSAY 2020-01-31 [facility] of 11:52:00 [facility] BASIC METABOLIC PANEL (NA, K, CL, 2020-01-31 [facility] CO2, GLUCOSE, BUN, CREATININE, 09:42:00 [facility]) Branch CBC WITH DIFF 2020-01-31 [facility] of 09:42:00 [facility] XR ANKLE 3+ VW LEFT 2020-01-30 Leonel Dias [place] of 23:15:27 [facility] BODY FLUID DIRECT COUNT 2020-01-30 Ernesto Knight Univer sity of 19:15:00 [facility] JOINT FLUID CRYSTALS SCREEN 2020-01-30 Ernesto Knight Un iversity of 19:15:00 [facility] BODY FLUID 2020-01-30 Eugene [facility] CULTURE(AEROBIC/ANAEROBIC) 19:15:00 [facility] URINALYSIS 2020-01-30 Ernesto Knight [place] 17:00:00 [facility] C-REACTIVE PROTEIN 2020-01-30 Eugene [facility] of 09:35:00 [facility] BASIC METABOLIC PANEL (NA, K, CL, 2020-01-30 [facility] CO2, GLUCOSE, BUN, CREATININE, 09:35:00 [facility] SEDIMENTATION RATE 2020-01-30 Eugene [facility] of 09:35:00 [facility] CBC WITH DIFF 2020-01-30 Vikram Mullins [place] 09:35:00 [facility] MR ABDOMEN W CONTRAST MRCP 2020-01-30 Eugene Ernesto Uni versity of 04:45:00 [facility] BLOOD CULTURE SCREEN 2020-01-30 [facility] Universit y of 00:43:00 [facility] BLOOD CULTURE SCREEN 2020-01-29 [facility] y of 23:47:00 [facility] MRSA / MSSA SCREEN BY PCR, NARMAURI 2020-01-29 [facility] [place] of 23:47:00 [facility] EGD (ENDO) 2020-01-29 Deny Ordoñez [facility] of 17:48:29 [facility] UPPER ULTRASOUND 2020-01-29 [facility] of 17:47:00 [facility] XR FOOT 3+ VW LEFT 2020-01-29 Dangelo Carty [place] f 05:26:15 [facility] COVID-19 (ID NOW RAPID TESTING) 2020-01-29 Dangelo Carty [facility] 05:15:00 [facility] URIC ACID 2020-01-29 Dangelo Carty [facility] 05:13:00 [facility] LIPASE 2020-01-29 Dangelo Carty [facility] 05:13:00 [facility] HEPATIC FUNCTION PANEL ([id number]) 2020-01-29 Dangelo Carty U niversity of (ALB,T.PRO,BILI 05:13:00 [facility] T,BU/BC,ALT,AST,ALK PHOS) Branch BASIC METABOLIC PANEL (NA, K, CL, 2020-01-29 Dangelo Carty [facility] CO2, GLUCOSE, BUN, CREATININE, 05:13:00 [facility]) Branch CBC WITH DIFF 2020-01-29 Dangelo Carty [facility] 04:17:00 [facility] CONSENT/REFUSAL FOR DIAGNOSIS AND 2020-01-29 Doctor Unassgretel cortes, No University of TREATMENT 03:37:48 Name [facility] HOSPITAL ADMISSION 2020-01-28 Doctor Unassigned, No Univers ity of 05:01:00 Name [facility] EGD (ENDO) 2020-01-20 Casie David [place] 16:03:02 [facility] LIPASE 2020-01-20 Joann [facility] of 08:48:00 [facility] MAGNESIUM 2020-01-20 Joann [facility] of 08:48:00 [facility] HEPATIC FUNCTION PANEL ([id number]) 2020-01-20 Casie David U niversity of (ALB,T.PRO,BILI 08:48:00 [facility] T,BU/BC,ALT,AST,ALK PHOS) Branch BASIC METABOLIC PANEL (NA, K, CL, 2020-01-20 [facility] CO2, GLUCOSE, BUN, CREATININE, 08:48:00 [facility] CBC WITH DIFF 2020-01-20 [facility] of 08:48:00 [facility] US ABDOMEN COMPLETE 2020-01-19 [facility] of 19:19:28 [facility] LIPASE 2020-01-19 Eulogio [facility] of 09:22:00 [facility] HEPATIC FUNCTION PANEL ([id number]) 2020-01-19 Chidi Krishnan U niversity of (ALB,T.PRO,BILI 09:22:00 [facility] T,BU/BC,ALT,AST,ALK PHOS) Branch BASIC METABOLIC PANEL (NA, K, CL, 2020-01-19 [facility] CO2, GLUCOSE, BUN, CREATININE, 09:22:00 [facility]) Branch CBC WITH DIFF 2020-01-19 [facility] of 09:22:00 [facility] LIPASE 2020-01-18 [facility] of 10:53:00 [facility] BASIC METABOLIC PANEL (NA, K, CL, 2020-01-18 [facility] CO2, GLUCOSE, BUN, CREATININE, 10:53:00 [facility]) Branch CBC WITH DIFF 2020-01-18 [facility] of 10:53:00 [facility] FECES CULTURE 2020-01-17 [facility] of 22:28:00 [facility] CLOSTRIDIUM DIFFICILE TOXIN 2020-01-17 [facility] of 22:28:00 [facility] OVA AND PARASITE EXAM FECAL 2020-01-17 [facility] ersity of 22:28:00 [facility] CBC WITH DIFF 2020-01-17 [facility] of 11:19:00 [facility] LIPASE 2020-01-17 [facility] of 11:18:00 [facility] BASIC METABOLIC PANEL (NA, K, CL, 2020-01-17 [facility] of CO2, GLUCOSE, BUN, CREATININE, 11:18:00 [facility] CT ABDOMEN PELVIS W CONTRAST 2020-01-16 [facility] versity of 21:44:07 [facility] LIPASE 2020-01-16 [facility] of 11:34:00 [facility] URINALYSIS 2020-01-16 Eligio Hammer [facility] 06:29:00 [facility] COVID-19 (ID NOW RAPID TESTING) 2020-01-16 Eligio Hammer [facility] 06:29:00 [facility] LAB ONLY COVID INTERPRETATION 2020-01-16 Eligio Hammer Un iversity of 06:29:00 [facility] LIPASE 2020-01-16 Eligio Hammer [facility] 05:40:00 [facility] TROPONIN I 2020-01-16 Eligio Hammer [facility] 05:40:00 [facility] HEPATIC FUNCTION PANEL ([id number]) 2020-01-16 Eligio Hammer U niversity of (ALB,T.PRO,BILI 05:40:00 [facility],BU/BC,ALT,AST,ALK PHOS) Branch BASIC METABOLIC PANEL (NA, K, CL, 2020-01-16 Eligio Hammer [facility] CO2, GLUCOSE, BUN, CREATININE, 05:40:00 [facility] ETHANOL 2020-01-16 Eligio Hammer [facility] 05:40:00 [facility] CBC WITH DIFF 2020-01-16 Eligio Hammer [facility] 05:40:00 [facility] NOTICE OF PRIVACY PRACTICES 2020-01-16 Doctor Unassigned, N o [place] 04:30:58 Name [facility] CONSENT/REFUSAL FOR DIAGNOSIS AND 2020-01-16 Doctor Unassig sophia, No University of TREATMENT 04:30:43 Name [facility] PHOSPHORUS 2020-01-11 Chidi Krishnan [place] 10:03:00 [facility] MAGNESIUM 2020-01-11 Chaudhary, [facility] of 10:03:00 [facility] BASIC METABOLIC PANEL (NA, K, CL, 2020-01-11 Jet, [facility] of CO2, GLUCOSE, BUN, CREATININE, 10:03:00 [facility] FECAL LEUKOCYTES 2020-01-11 Jet, [facility] of 06:05:00 [facility] LIPASE 2020-01-10 Jet, [facility] of 10:16:00 [facility] MAGNESIUM 2020-01-10 Chaudhary, [facility] of :16:00 [facility] COMP. METABOLIC PANEL ([id number]) 2020-01-10 Maurice Chaudhary Un iversity of 10:16:00 [facility] LIPASE 2020-01-09 Jet [facility] of 11:17:00 [facility] MAGNESIUM 2020-01-09 Jet, [facility] of 11:17:00 [facility] BASIC METABOLIC PANEL (NA, K, CL, 2020-01-09 Jet, [facility] of CO2, GLUCOSE, BUN, CREATININE, 11:17:00 [facility] CLOSTRIDIUM DIFFICILE TOXIN 2020-01-08 Jet [facility] ersity of 23:22:00 [facility] LIPASE 2020-01-08 Jet [facility] of 10:01:00 [facility] MAGNESIUM 2020-01-08 Chaudhary, [facility] of 10:01:00 [facility] COMP. METABOLIC PANEL ([id number]) 2020-01-08 Maurice Chaudhary Un iversity of 10:01:00 [facility] CBC WITH DIFF 2020-01-08 Jet [facility] of 10:01:00 [facility] CORTISOL AM 2020-01-07 Jet [facility] of :14:00 [facility] ALDOSTERONE, SERUM 2020-01-07 Jet [facility] of :13:00 [facility] VITAMIN B12, LEVEL 2020-01-07 Jet [facility] of :13:00 [facility] FOLATE 2020-01-07 Jet, [facility] of :13:00 [facility] THYROID STIMULATING HORMONE 2020-01-07 [facility] 13:13:00 [facility] IRON PANEL 2020-01-07 Jet [facility] of :13:00 [facility] VITAMIN D, 25-OH 2020-01-07 Jet, [facility] of :13:00 [facility] LIPASE 2020-01-07 Maurice Chaudhary of 10:11:00 [facility] MAGNESIUM 2020-01-07 Jet [facility] of 10:11:00 [facility] HEPATIC FUNCTION PANEL ([id number]) 2020-01-07 Maurice Chaudhary U niversity of (ALB,T.PRO,BILI 10:11:00 [facility] T,BU/BC,ALT,AST,ALK PHOS) Branch BASIC METABOLIC PANEL (NA, K, CL, 2020-01-07 Maurice Chaudhary [place] CO2, GLUCOSE, BUN, CREATININE, 10:11:00 [facility] CBC WITHOUT DIFF 2020-01-07 Maurice Chaudhary [place] 10:11:00 [facility] NM HEPATOBILIARY W INTERVENTION 2020-01-06 Maurice Chaudhary [place] of 22:29:28 [facility] PROTHROMBIN TIME / INR 2020-01-06 Rosemarie [facility] y of 17:11:00 [facility] MAGNESIUM 2020-01-06 Maurice Chaudhary [place] of 17:10:00 [facility] BASIC METABOLIC PANEL (NA, K, CL, 2020-01-06 Jet [facility] CO2, GLUCOSE, BUN, CREATININE, 17:10:00 [facility] HEPATIC FUNCTION PANEL ([id number]) 2020-01-06 Maurice Chaudhary niversity of (ALB,T.PRO,BILI 08:24:00 [place] [facility] T,BU/BC,ALT,AST,ALK PHOS) Branch BASIC METABOLIC PANEL (NA, K, CL, 2020-01-06 Jet [facility] CO2, GLUCOSE, BUN, CREATININE, 08:24:00 [facility] CBC WITH DIFF 2020-01-06 Maurice Chaudhary of 08:24:00 [facility] US GALL BLADDER 2020-01-05 Lizet Sherwood [place] of 23:27:03 [facility] URINALYSIS 2020-01-05 Lizet Sherwood of 22:27:00 [facility] COVID-19 (ID NOW RAPID TESTING) 2020-01-05 Lizet [place]wood of 22:27:[address] [facility] [address] ABDOMEN PELVIS WO CONTRAST 2020-01-05 Lizet Sherwood iversity of 22:03:50 [facility] NOTICE OF PRIVACY PRACTICES 2020-01-05 Doctor Unassigned, N o University of 21:24:49 Name [facility] CONSENT/REFUSAL FOR DIAGNOSIS AND 2020-01-05 Doctor Unassig sophia, No University of TREATMENT 21:23:56 Name [facility] LIPASE 2020-01-05 Lizet Sherwood University of 20:55:00 [facility] COMP. METABOLIC PANEL ([id number]) 2020-01-05 Lizet Sherwood Un iversity of 20:55:00 [facility] CBC WITH DIFF 2020-01-05 Lizet Sherwood University of 20:55:00 [facility] HOSPITAL ADM - MISC 2020-01-05 Doctor Unassigned, No Univer sity of 05:01:00 Name [facility] CT THORAX W CONTRAST 2019-05-20 Cain Herrera Univer sity of 21:13:30 [facility] [address] SOFT TISSUE NECK W CONTRAST 2019-05-20 Cain Herrera Ba [facility] University of 21:10:14 [facility] ASSIGNMENT OF BENEFITS 2019-05-20 Doctor Unassigned, No Uni versity of 19:45:20 Name [facility] PHYSICIAN ORDERS 2019-05-12 Doctor Unassigned, No Universit y of 06:01:00 Name [facility] FLEXIBLE SCOPE ENT 2019-05-07 Cain Herrera Universi ty of 00:00:00 [facility] REFERRAL- REQUEST/RESPONSE 2019-04-29 Doctor Unassigned, No University of 06:01:00 [facility] TDAP (ADACEL) IMMUNIZATION 2019-04-28 Mandeep Bridges niversity of 22:31:25 [facility] Encounters Start End Encounter Admission Attending Care Care Encounter Source Date/Time Date/Time Type Type Clinicians Facility Department ID 2021-01-31 Emergency [facility] [id number] Univers 04:31:31 ity of [facility] 2021-01-30 Emergency [facility] [id number] Univers 23:01:33 ity of [facility] 2021-01-30 Emergency [facility] [id number] Univers 22:04:12 ity of [facility] 2021-01-30 Emergency [facility] [id number] Univers 18:10:19 ity of [facility] 2021-01-30 Emergency [facility] [id number] Univers 12:18:18 ity of [facility] 2021-01-30 Emergency [facility] [id number] Univers 09:17:48 ity of [facility] 2021-01-30 Emergency [facility] [id number] Univers 08:18:41 ity of [facility] 2021-01-30 Emergency [facility] [id number] Univers 04:52:11 ity of [facility] 2021-01-30 Emergency [facility] [id number] Univers 03:22:39 ity of [facility] 2021-01-29 Emergency [facility] [id number] Univers 21:55:03 ity of [facility] 2021-01-29 Emergency [facility] [id number] Univers 20:48:57 ity of [facility] 2021-01-28 Emergency [facility] [id number] Univers 18:24:20 ity of [facility] 2021-01-28 Emergency [facility] [id number] Univers 04:33:22 ity of [facility] 2021-01-28 Outpatient MILY [facility] [id number] Univers 04:31:08 BRODIE ity of [facility] 2021-01-28 Emergency [facility] [id number] Univers 01:58:43 ity of [facility] 2021-01-27 Emergency [facility] [id number] Univers 23:31:06 ity of [facility] 2021-01-27 Emergency [facility] [id number] Univers 21:26:13 ity of [facility] 2021-03-16 2021-03-16 Outpatient R SAMI [facility] [id number] Univers 15:30:00 15:30:00 MAURIZIO [id number] ity of [facility] 2021-03-03 2021-03-03 Outpatient Sara NAPIER [facility] [id number] Univers 08:30:00 08:30:00 SADIQ [id number] ity of [facility] 2021-02-09 2021-02-09 Transition MANJINDER Land [id number] Univers 00:00:00 00:00:00 of Care Sayra BADILLO [id number] i ty of [id number] [phone] [facility] [address] 2021-02-05 2021-02-08 Outpatient X EULOGIO [facility] [id number] Univers 10:43:00 17:37:00 CHIDI itgautam [facility] 2021-02-05 2021-02-08 Emergency Lennox Crystal [facility] [id number] Univers 10:43:00 17:37:00 Chidi Krishnan [id number] ity of [facility] [id number] B[place] [id number] [address] 2021-02-03 2021-02-03 Outpatient R KARTHIKEYAN [facility] [id number] Univers 08:30:00 08:30:00 SADIQ [id number] ity [facility] 2021-02-02 2021-02-02 Transition MANJINDER Francisco [id number] Univers 00:00:00 00:00:00 of Care Anderson Valiente JUSTINO [id number] ity of [id number] [id number] [facility] [address] Branch 2021-01-27 2021-02-01 Inpatient X MEDINA [facility] [id number] Univers 22:36:00 16:30:00 GIRISH itgautam [facility] 2021-01-27 2021-02-01 [facility] Urszula Baeza [facility] [id number]. [id number] Univers 22:36:00 16:30:00 Encounter Girish Haney [id number] ity of [facility] [id number] [id number] [address] 2021-01-31 2021-01-31 Patient Fabiano [facility] [id number] Univers 00:00:00 00:00:00 Outreach Wendy [facility] [id number] i ty of [place] [id number] Real as NATASHA?BLEA [id number] Co nidhi NANCE [address] [facility] 2021-01-21 2021-01-21 Emergency Singer [facility] [id number] Univers 03:45:00 05:15:00 Jairo Matt [id number] i ty of [place] [id number] [facility] [id number] [facility] 0[address] Branch 2021-01-21 2021-01-21 Emergency X SINGER [facility] [id number] Univers 03:45:00 05:15:00 JAIRO garret of [facility] 2021-01-10 2021-01-10 Transition VicentedavionManjinder [id number] Univers 00:00:00 00:00:00 of Care Sayra Badillo [id number] i ty of [place] [id number] [facility] [id number] [facility] [address] 2021-01-04 2021-01-08 [facility] Deny Claudio [facility] 1.2.840.1 14 [id number] Univers 16:12:00 13:20:00 Encounter Joe [facility] 350.1.13.10 ity of [place] 4.2.7.2.686 [facility] [phone] [address] ([facility]) 2021-01-08 2021-01-08 Telephone Shelby Diaz [facility] 1.2.840.114 [id number] Univers 00:00:00 00:00:00 Health 350.1.13.10 it y of [place] 4.2.7.2.686 [facility] [phone] [address] ([facility]) 2021-01-05 2021-01-05 Surgery Karthikeyan [facility] 1.2.840.114 [id number] Univers 13:15:00 14:36:00 Sadiq SPECIALTY 350.1.13.10 ity of CARE 4.2.7.2.686 [facility] AT [phone] Co nidhi DARNELL 020 [facility] 2021-01-04 2021-01-04 Emergency [facility] 1.2.561.973 [id number] Univers 12:49:00 15:28:00 Jairo Gutierrez 350.1.13.10 i ty of [place] 4.2.7.2.686 [facility] [phone] [place] [address]454 Branch 2021-01-04 2021-01-04 Emergency X HERI, [facility] ERT [id number] Univers 12:49:00 15:28:00 JOE ity [facility] 2020-12-23 2020-12-23 Transition Gilberto Pearcetono 1.2.840.114 [id number] Univers 00:00:00 00:00:00 of Care Debra Vega Justino 350.1.13.10 i ty of [place] 4.2.7.2.686 [facility] [phone] [facility] 403 Branch 2020-12-15 2020-12-22 Hospital Jairo Montague [facility] 1.2.840.1 14 [id number] Univers 09:02:00 14:05:00 Encounter Deric Santos 350.1.13.10 ity of [place] 4.2.7.2.686 [facility] [phone] [place] 349451 [place] 2020-12-19 2020-12-19 Outpatient R [facility] [id number] -20 Univers 16:00:00 16:00:00 [id number] ity [facility] 2020-12-19 2020-12-19 Outpatient R [facility] [id number] Univers 16:00:00 16:00:00 ity [facility] 2020-12-15 2020-12-15 [facility] [id number] N-20 Univers 14:30:00 14:30:00 WONDIFUL [id number] ity o f [facility] 2020-12-15 2020-12-15 Outpatient [facility] [id number] Univers 14:30:00 14:30:00 WONDIFUL ity o f [facility] 2020-12-12 2020-12-12 Telephone [facility] 1.2.840.114 [id number] Univers 00:00:00 00:00:00 Wondiful A Health 350.1.13.10 ity of [place] 4.2.7.2.686 Real as Natasha?Blea [phone] Co nidhi nance 044 [place] [facility] 2020-12-11 2020-12-11 Emergency Jairon [facility] 1.2.840.114 [id number] Univers 09:03:00 12:08:00 Catalina Gutierrez 350.1.13.10 ity of [place] [phone] [facility] 084 Branch 2020-12-01 2020-12-01 Transition Portia Gilbertotono 1.2.840.114 [id number] Univers 00:00:00 00:00:00 of Care Debra Badillo 350.1.13.10 i ty of [place] 4.2.7.2.686 [place] [phone] [facility] 403 Branch 2020-11-23 2020-11-30 Hospital Malcolm Rivera [facility] 1.2.840. 114 [id number] Univers 19:30:00 16:06:00 Encounter Girish Haney 350.1.13.10 ity of [place] 4.2.7.2.686 [place] [phone] [facility] 081 Branch 2020-11-23 2020-11-23 Orders Doctor CARY 1.2.840.114 [id number] Univers 00:00:00 00:00:00 Only Unassigned, SEAN 350.1.13.10 ity of [place] [facility] 4.2.7.2.686 Real as [phone] [facility] 009 Branch 2020-11-08 2020-11-08 Refill Yuliana [facility] 1.2.840.114 [id number] Univers 00:00:00 00:00:00 Wondiful A Health 350.1.13.10 ity of [place] 4.2.7.2.686 Real as Professio [phone] Co nidhi ruiz [address] [place] [facility] One 2020-11-04 2020-11-04 Office Yuliana [facility] 1.2.840.114 [id number] Univers 10:43:14 11:27:21 Visit Wondiful A Health 350.1.13.10 ity of [place] 4.2.7.2.686 Real as Professio [phone] [address] Office [facility] One 2020-11-04 2020-11-04 Outpatient Sara YULIANA [facility] [id number] N-20 Univers 10:45:00 10:45:00 WONDIFUL [id number] ity o f [facility] 2020-11-04 2020-11-04 Outpatient [facility] [id number] Univers 10:45:00 10:45:00 WONDIFUL ity o f [facility] 2020-10-30 2020-10-31 Emergency [facility] 1.2.443.373 [id number] Univers 22:35:00 02:17:00 Urszula Johnson [place] 350.1.13.10 ity of [place] 4.2.7.2.686 [place] [phone] [address] 2020-10-31 2020-10-31 [facility]phone [facility] 1.2.840.114 [id number] Univers 00:00:00 00:00:00 Wondiful A Health 350.1.13.10 ity of [place] 4.2.7.2.686 Real as Professio [phone] [address] One 2020-10-28 2020-10-28 [facility] 1.2.840.114 [id number] Univers 00:00:00 00:00:00 Wondiful A Health 350.1.13.10 ity of [place] 4.2.7.2.686 Real as Professio [phone] [address] Office [facility] One 2020-10-18 2020-10-18 Emergency [facility] 1.2.556.877 [id number] Univers 02:29:00 04:26:00 Jairo Gutierrez 350.1.13.10 i ty of [place] 4.2.7.2.686 [place] [phone] [address] 2020-10-182020-10-18 Telephone [facility] 1.2.840.114 [id number] Univers 00:00:00 00:00:00 Wondiful A Health 350.1.13.10 ity of [place] 4.2.7.2.686 Real as Professio [phone] [address] One 2020-10-13 2020-10-13 Emergency [facility] 1.2.582.991 [id number] Univers 02:21:00 05:01:00 Waarlene S [place] 350.1.13.10 ity of [place] 4.2.7.2.686 [place] [phone] [facility] 084 [place] 2020-10-10 2020-10-10 Telephone [facility] 1.2.840.114 [id number] Univers 00:00:00 00:00:00 Wondiful A Health 350.1.13.10 ity of [place] 4.2.7.2.686 Real as Professio [phone] [address] One 2020-10-07 2020-10-07 Orders Doctor CARY 1.2.840.114 [id number] Univers 00:00:00 00:00:00 Only Unassigned, SEAN 350.1.13.10 ity of [place] [facility] 4.2.7.2.686 Real as [phone] [facility] 009 [place] 2020-10-06 2020-10-06 [facility] 1.2.840.114 [id number] Univers 00:00:00 00:00:00 Wondiful A Health 350.1.13.10 ity of [place] 4.2.7.2.686 Real as Professio [phone] [address] One 2020-10-06 2020-10-06 Telephone [facility] 1.2.840.114 [id number] Univers 00:00:00 00:00:00 Wondiful A Health 350.1.13.10 ity of [place] 4.2.7.2.686 Real as Professio [phone] [address] 2020-10-03 2020-10-03 [facility] 1.2.840.114 [id number] [facility] 16:28:13 17:20:02 Visit Wondiful A Health 350.1.13.10 ity of [place] 4.2.7.2.686 Real as Professio [phone] [address] 2020-10-03 2020-10-03 Outpatient R YULIANA [facility] [id number] N-20 Univers 16:30:00 16:30:00 WONDIFUL [id number] ity o f [facility] 2020-10-03 2020-10-03 Outpatient R YULIANA [facility] [id number] Univers 16:30:00 16:30:00 WONDIFUL ity o f [facility] 2020-09-30 2020-09-30 Telephone [facility] 1.2.840.114 [id number] [facility] 00:00:00 00:00:00 Wondiful A Health 350.1.13.10 ity of [place] 4.2.7.2.686 Real as Professio [phone] [address] 2020-09-28 2020-09-28 Emergency [facility] 1.2.150.635 [id number] [facility] 08:21:00 11:41:00 Lennox [place] 350.1.13.10 i ty of [place] 4.2.7.2.[address] [facility] [phone] [address] 2020-09-28 2020-09-28 Emergency [facility] 1.2.714.760 [id number] 08:21:00 11:41:00 Lennox [place] 350.1.13.10 [place] 4.2.7.2.686 [place] [phone] [facility] 2020-09-27 2020-09-27 Instrumental Music Teacher Cathleen, Adc Lab Main [facility] 1.2.8 40.114 [id number] [facility] 17:06:57 17:21:57 Visit Mike Storyton 350.1.13.10 ity of [place] 4.2.7.2.686 [place] Profess[place] [phone] Co dical nal [address] [place] Building 2020-09-27 2020-09-27 Office [facility] 1.2.840.114 [id number] Univers 16:25:25 16:55:20 Visit [facility] 350.1.13.10 i ty of [place] 4.2.7.2.686 Real as Professio [phone] Co dicmi nal [address] [place] Office Building One 2020-09-27 2020-09-27 Office [facility] 1.2.840.114 [id number] 16:25:25 16:55:20 Visit [facility] 350.1.13.10 [place] 4.2.7.2.686 Professio [phone] nal [address] [place] [address] One 2020-09-27 2020-09-27 Outpatient [facility] [id number] N-20 Univers 16:30:00 16:30:00 MIKE [id number] ity o [facility] 2020-09-27 2020-09-27 Outpatient R [facility] [id number] Univers 16:30:00 16:30:00 MIKE adamsy o [facility] 2020-09-26 2020-09-26 Transition Manjinder Pearce 1.2.840.114 [id number] Univers 00:00:00 00:00:00 of Care Debar Badillo 350.1.13.10 i ty of [place]2.7.2.686 [place] [phone] [facility] 403 Branch 2020-09-21 2020-09-24 [facility] AbebaTaras rowley [facility] 1.2.840.1 14 [id number] Univers 16:20:00 15:47:00 Encounter Deric Santos 350.1.13.10 ity of [place] 4.2.7.2.686 [place] [phone] [facility] 081 Branch 2020-09-22 2020-09-22 Outpatient R EVON [facility] [id number] -[id number] Univers 14:00:00 14:00:00 CHETNA [id number] ity of [facility] 2020-09-22 2020-09-22 Outpatient R EVON [facility] [id number] Univers 14:00:00 14:00:00 CHETNA ity of [facility] 2020-09-16 2020-09-16 Nella Yuliana [facility] 1.2.840.114 [id number] Univers 00:00:00 00:00:00 Wondiful A Health 350.1.13.10 ity of [place] 4.2.7.2.686 Real as Professio [phone] Co dicmi nal [address] [place] [facility] One 2020-09-13 2020-09-13 Orders Doctor CARY 1.2.840.114 [id number] Univers 00:00:00 00:00:00 Only Unassigned, SEAN 350.1.13.10 ity of [place] [facility] 4.2.7.2.686 Real as [phone] [facility] 009 Branch 2020-09-06 2020-09-06 Refill [facility] 1.2.840.114 [id number] Univers 00:00:00 00:00:00 Wondiful A Health 350.1.13.10 ity of [place] 4.2.7.2.686 Real as Professio [phone] Co dical nal 0[address] [place] [facility] One 2020-08-26 2020-08-28 [facility] Nyla Dixon [facility] 1 .2.840.114 [id number] Univers 09:07:00 11:38:00 Encounter Deric Santos 350.1.13.10 ity of [place].2.7.2.686 [place] [phone] [facility] 080 Branch 2020-08-24 2020-08-24 Transition Manjinder Pearce 1.2.840.114 [id number] Univers 00:00:00 00:00:00 of Care Debra Badillo 350.1.13.10 i ty of [place] 4.2.7.2.686 [place] [phone] [facility] 403 Branch 2020-08-22 2020-08-23 [facility] Jairo Montague [facility] 1.2.840.1 14 [id number] Univers 09:28:00 16:15:00 Encounter Chidi Krishnan 350.1.13.10 ity of [place] 4.2.7.2.686 [facility] [phone] [address] 2020-07-12 2020-07-12 Outpatient [facility] [id number] N-20 Univers 13:00:00 13:00:00 WONDIFUL [id number] ity o f [facility] 2020-07-12 2020-07-12 Outpatient [facility] [id number] Univers 13:00:00 13:00:00 WONDIFUL ity o f [facility] 2020-06-15 2020-06-15 [facility] 1.2.840.114 [id number] Univers 00:00:00 00:00:00 Wondiful A Health 350.1.13.10 ity of [place] 4.2.7.2.686 Real as Professio [phone] [address] Office Building One 2020-05-31 2020-05-31 Outpatient Sara SHAFFER [facility] [id number] N-20 Univers 15:45:00 15:45:00 LUCY [id number] [facility] 2020-05-31 2020-05-31 Outpatient Sara [facility] [id number] Univers 15:45:00 15:45:00 LUCY [facility] 2020-04-20 2020-04-20 Emergency [facility] 1.2.971.587 [id number] Univers 16:13:00 21:39:00 Tati Gutierrez 350.1.13.10 i ty of [place] 4.2.7.2.686 [facility] [phone] [address] 2020-04-20 2020-04-20 Telephone [facility] 1.2.840.114 [id number] Univers 00:00:00 00:00:00 Wondiful A Health 350.1.13.10 ity of [place] 4.2.7.2.686 Real as [facility] [phone] Co dical [facility] 044 Branch Office Building One 2020-04-14 2020-04-14 Outpatient Sara TENA [facility] [id number] [id number]-20 Univers 10:00:00 10:00:00 KARISHMA [id number] ity [facility] 2020-04-14 2020-04-14 Outpatient [facility] [id number] Univers 10:00:00 10:00:00 KARISHMA [facility] 2020-04-04 2020-04-04 Outpatient R TEQUILA [facility] [id number] [id number] Univers 09:30:00 09:30:00 CINDY [id number] [facility] 2020-04-04 2020-04-04 Outpatient R TEQUILA [facility] [id number] Univers 09:30:00 09:30:00 CINDY [facility] 2020-03-31 2020-03-31 Outpatient Sara [facility] [id number] Univers 09:30:00 09:30:00 KARISHMA [id number] [facility] 2020-03-31 2020-03-31 Outpatient [facility] [id number] Univers 09:30:00 09:30:00 [facility] 2020-03-28 2020-03-28 Orders Doctor CARY 1.2.840.114 [id number] Univers 00:00:00 00:00:00 Only Unassigned, SEAN 350.1.13.10 ity of [place] [facility] 4.2.7.2.686 Real as [phone] [address] 2020-03-23 2020-03-23 Outpatient Sara TENA [facility] [id number] [id number]-20 Univers 14:45:00 14:45:00 KARISHMA [id number] [facility] 2020-03-23 2020-03-23 Outpatient Sara [facility] [id number] Univers 14:45:00 14:45:00 [facility] 2020-03-21 2020-03-21 Telephone [facility] 1.2.840.114 [id number] Univers 00:00:00 00:00:00 Wondiful A Health 350.1.13.10 ity of [place] 4.2.7.2.686 Real as Professio [phone] [address] Office [facility] [address] 2020-03-17 2020-03-17 Outpatient R DARINEL [facility] [id number] [id number]-20 Univers 09:15:00 09:15:00 KARISHMA [id number] ity [facility] 2020-03-17 2020-03-17 Outpatient [facility] [id number] Univers 09:15:00 09:15:00 KARISHMA ity [facility] 2020-03-15 2020-03-15 Telephone [facility] 1.2.840.114 [id number] Univers 00:00:00 00:00:00 Wondiful A Health 350.1.13.10 ity of [place] 4.2.7.2.686 Real as Professio [phone] [address] 2020-03-09 2020-03-09 Refill [facility] 1.2.840.114 [id number] Univers 00:00:00 00:00:00 Wondiful A Health 350.1.13.10 ity of [place] 4.2.7.2.686 Real as Professio [phone] [address] 2020-03-07 2020-03-07 Office Phillips [facility] 1.2.840.114 [id number] Univers 10:31:23 11:33:24 Visit Wondiful A Health 350.1.13.10 ity of [place] 4.2.7.2.686 Real as Professio [phone] [address] Office [facility] [address] 2020-03-07 2020-03-07 Outpatient R YULIANA [facility] [id number] N-20 Univers 10:45:00 10:45:00 WONDIFUL [id number] ity o f [facility] 2020-03-07 2020-03-07 Office Tequila [facility] 1.2.993.592 [id number] Univers 09:21:46 10:08:12 Visit Cindy Matt 350.1.13.10 i ty of [place]2.[place].2.686 [place] [facility] [phone] Co dical nal 188 [facility] 2020-03-07 2020-03-07 Outpatient R TEQUILA [facility] [id number] Univers 09:15:00 09:15:00 CINDY ity of [facility] 2020-02-23 2020-02-23 Outpatient R [facility] [id number] -[id number] Univers 09:00:00 09:00:00 RAWLINDA [id number] ity of [facility] 2020-02-23 2020-02-23 Outpatient R [facility] [id number] Univers 09:00:00 09:00:00 RAWLINDA ity of [facility] 2020-02-18 2020-02-18 Transition Manjinder Morrison 1.2.840.114 [id number] Univers 00:00:00 00:00:00 of Care [place] Bad[place] 350.1.13.10 it y of [place].2.[place] [phone] [address] 2020-02-17 2020-02-17 Outpatient R [facility] [id number] -20 Univers 09:00:00 09:00:00 RAWLINDA [id number] ity of [facility] 2020-02-17 2020-02-17 Outpatient R [facility] [id number] Univers 00:00:00 00:00:00 ALEXIS ity of [facility] 2020-02-17 2020-02-17 [facility] Manjinder Morrison 1.2.840.114 [id number] Univers 00:00:00 00:00:00 of Care [place] 350.1.13.10 it y of [place] 4.2.7.2.686 [place] [phone] [facility] 403 [address] 2020-02-09 2020-02-16 [facility] Tati Lazo [facility] 1.2.840.1 14 [id number] Univers 16:05:00 17:18:00 Encounter Chidi Krishnan 350.1.13.10 ity of [place] 4.2.7.2.686 [place] [phone] [facility] 081 Branch 2020-02-11 2020-02-11 Outpatient R [facility] [id number] -[id number] Univers 10:00:00 10:00:00 [id number] ity of [facility] 2020-02-09 2020-02-09 Outpatient R [facility] [id number] -[id number] Univers 16:20:00 16:20:00 ity of [facility] 2020-02-09 2020-02-09 Instrumental Music Teacher Lab, Adc Fam Pob I [facility] 1.2. 840.114 [id number] Univers 15:44:03 16:04:03 Visit Chetna Barnard Levi 350.1.13.10 ity of [place] Brid[place] Steffanie [place] 4.2.7.2.686 [place] Professio [phone] Co dic[address] Office Building One 2020-02-09 2020-02-09 Office Yuliana [facility] 1..840.114 [id number] Univers 15:16:59 15:50:02 Visit Mandeep [facility] 350.1.13.10 ity of [place] 4.2.7.2.686 [facility] Professio [phone] Co dical nal [address] [place] [address] Office Building One 2020-02-09 2020-02-09 Outpatient R YULIANA [facility] [id number] Univers 15:30:00 15:30:00 WONDIFUL ity o f [facility] 2020-02-04 2020-02-04 Transition Manjinder Morrison 1.2.840.114 [id number] Univers 00:00:00 00:00:00 of Care [place] 350.1.13.10 it y [place]2.[place].2.[place] [phone] [address] 2020-02-03 2020-02-03 Transition Manjinder Morrison 1.2.840.114 [id number] Univers 00:00:00 00:00:00 of Care [place] 350.1.13.10 it y [place] 4[place]2.7.2.686 [place] [phone] [address] 2020-01-28 2020-02-02 [facility] Dangelo Carty 1..840.11 4 [id number] Univers 22:39:00 17:40:00 Encounter iVkram Mullins 350.1.13.10 ity of [facility] 4.2.7.2.6 [address] Sandra Givens [phone] Medical 095 [address] 2020-02-02 2020-02-02 Case CARY [place] 1.2.840.114 [id number] Univers 00:00:00 00:00:00 Management Alexis ESTRADA 350.1.13.10 ity of HOSPITAL 4.2.7.2.686 Real as [phone] [facility] 009 Branch 2020-02-01 2020-02-01 Anesthesia Kamille Varma [facility] 1.2.840 .114 [id number] Univers 11:11:00 11:46:00 Preston Murray [place] 350.1.13.10 ity of [facility] 4.2.7.2.686 Real as BLDG [phone] [facility] 020 Branch 2020-01-28 2020-01-28 Outpatient R [facility] [id number] -[id number] Univers 09:00:00 09:00:00 [id number] ity of [facility] 2020-01-28 2020-01-28 Outpatient R [facility] [id number] Univers 09:00:00 09:00:00 WONDIFUL ity o f [facility] 2020-01-28 2020-01-28 Telephone [facility] 1.2.840.114 [id number] Univers 00:00:00 00:00:00 Wondiful A Health 350.1.13.10 ity of [place] 4.2.7.2.686 Real as Professio [phone] Co dical nal 044 [address] Office Building One 2020-01-26 2020-01-26 Office SOCORRO [place] 1.2.358.615 [id number] Univers 08:27:31 09:20:57 Visit Alexis Moss HEALTH 350.1.13.10 ity of CLINICS 4.2.7.2.686 [place] [phone] [facility] 071 Branch 2020-01-26 2020-01-26 Outpatient R ANNE-MARIE [facility] [id number] Univers 09:00:00 09:00:00 RAWAN ity of [facility] 2020-01-21 2020-01-21 Transition NolanGilbertotono 1.2.840.114 [id number] Univers 00:00:00 00:00:00 of Care Anderson [place]illo 350.1.13.10 ity of [place] 4[place]2.7.2.686 [place] [phone] [facility] 403 [address] 2020-01-15 2020-01-20 Hospital Eligio Hammer [facility] 1.2.840.114 [id number] Univers 23:47:00 17:26:00 Encounter Vikram Mullins 350.1.13.10 ity of [place]2.7.2.686 [place] [phone] [facility] [address] [place] 2020-01-15 2020-01-15 Orders Doctor CARY 1.2.840.114 [id number] Univers 00:00:00 00:00:00 Only Unassigned, SEAN 350.1.13.10 ity of [place] [facility] 4.2.7.2.686 Real as [phone] [facility] 009 Branch 2020-01-12 2020-01-12 Transition NolanGilberto meyertono 1.2.840.114 [id number] Univers 00:00:00 00:00:00 of Care Anderson [place]illo 350.1.13.10 ity of [place] 4.2.7.2.686 [place] [phone] [facility] 403 [address] 2020-01-05 2020-01-11 [facility] Kaela Lizet Sara [facility] 1.2.840.11 [id number] Univers 15:45:00 14:20:00 Encounter Maurice Chaudhary 350.1.13.10 ity of [place] 4.2.7.2.686 [place] [phone] [place] [id number] Branch 2020-01-05 2020-01-05 Urgent Provider, [facility] 1.2.840.114 [id number] Univers 15:08:18 15:28:18 Care Chetna Barnard 350.1.13.10 ity of [place] 4.2.7.2.686 Real as Professio [phone] Co nidhi ruiz [address] [place] [address] Office [facility] [address] 2020-01-05 2020-01-05 Outpatient R [facility] [id number] Univers 15:20:00 15:20:00 ity [facility] 2020-01-05 2020-01-05 Outpatient R EVON [facility] [id number] Univers 15:20:00 15:20:00 CHETNA ity [facility] 2019-12-17 2019-12-17 Telephone [facility] 1..840.114 [id number] [facility] 00:00:00 00:00:00 [facility] [id number] it y of [place] [id number] Real as Professio [phone] Co [address] Office [facility] [address] 2019-12-16 2019-12-16 Instrumental Music Teacher Lab, Adc Fam Pob I [facility] 1.. 840.114 [id number] Univers 09:31:42 09:41:42 Visit Lucy Shaffer [facility] 350.1.13 .10 ity of [place] [id number] Real as Professio [phone] [address] 2019-12-16 2019-12-16 Office [facility] 1.2.840.114 [id number] Univers 09:09:54 09:24:54 Visit [facility] [facility] 350.1.13.10 it y of [place] 4.2.7.2.686 Real as Professio [phone] [address] Office [facility] [address] 2019-12-16 2019-12-16 Outpatient R YVONNEBERNARDINO [facility] [id number] Univers 09:15:00 09:15:00 LUCY [id number] itgautam [facility] 2019-12-16 2019-12-16 Outpatient R YVONNEBERNARDINO [facility] [id number] Univers 09:15:00 09:15:00 LUCY combs [facility] 2019-07-13 2019-07-13 [facility] ..840.114 [id number] Univers 00:00:00 00:00:00 Wondiful [facility] 350.1.13.10 ity of [place] 4.2.7.2.686 Real as Professio [phone] [address] Office [facility] [address] 2019-06-29 2019-06-29 [facility]phone [facility] 1.2.840.114 [id number] Univers 00:00:00 00:00:00 [facility]iful [facility] 350.1.13.10 ity of [place] 4.2.7.2.686 Real as Professio [phone] [address] 2019-06-17 2019-06-17 Ancillary Rosa Diggs [facility] 1.2.840 .114 [id number] Univers 12:02:29 13:02:29 Visit Nidhi Jiang [facility] 350.1.13.10 [place] - [phone] Med ical [facility] [address] 2019-06-17 2019-06-17 Outpatient [facility] [id number] -[id number] Univers 13:00:00 13:00:00 [id number] ity [facility] 2019-06-17 2019-06-17 [facility] [id number] Univers 13:00:00 13:00:00 NIDHI itgautam [facility] 2019-06-04 2019-06-05 [facility] 1.2.840.114 [id number] Univers 14:36:18 15:59:44 Visit Maurizio Health 350.1.13.10 [place] - [phone] Med ical [facility] [address] 2019-06-04 2019-06-04 [facility] [id number] Univers 15:00:00 15:00:00 MAURIZIO ity [facility] 2019-06-02 2019-06-02 Telephone [facility] 1.2.840.114 [id number] Univers 00:00:00 00:00:00 Wondiful A Health 350.1.13.10 ity of [place] 4.2.7.2.686 Real as Professio [phone] Co dical nal [address] 2019-05-22 2019-05-22 Telephone [facility] 1.2.840.114 [id number] Univers 00:00:00 00:00:00 Wondiful A Health 350.1.13.10 ity of [place] 4.2.7.2.686 Real as Profjelly [phone] Co dical [facility] [address] 2019-05-20 2019-05-20 [facility] 1.2.840.114 [id number] Univers 14:00:00 23:59:00 Encounter Maurizio Gonzalezton 350.1.13.10 ity of [place] 4.2.7.2.686 [facility] [phone] [address] 2019-05-20 2019-05-20 Outpatient R [facility] [id number] Univers 13:45:50 13:59:00 MAURIZIO ity of [facility] 2019-05-20 2019-05-20 [facility] 1.2.840.114 [id number] Univers 13:45:00 13:59:00 Encounter Maurizio Gonzalezton 350.1.13.10 ity of [place] 4.2.7.2.686 [facility] [phone] [address] 2019-05-20 2019-05-20 Orders Doctor CARY 1.2.840.114 [id number] Univers 00:00:00 00:00:00 Only Unassigned, SEAN 350.1.13.10 ity of [place] [facility] 4.2.7.2.686 Real as [phone] [address] 2019-05-18 2019-05-18 [facility] 1.2.840.114 [id number] Univers 14:09:00 23:59:00 Encounter Maurizio Gonzalezton 350.1.13.10 ity of [place] 4.2.7.2.686 [facility] [phone] [address] 2019-05-18 2019-05-18 [facility] 1.2.840.114 [id number] Univers 14:00:00 14:08:00 Encounter Maurizio Matt 350.1.13.10 ity of [place]7.2.686 [place] [phone] [facility] [address] 2019-05-12 2019-05-12 Outpatient R VIDAL [facility] [id number] Univers 14:45:00 14:45:00 LEXIE combs of [facility] 2019-05-12 2019-05-12 Instrumental Music Teacher Tonia Connolly Lab Main [facility] 1.2.8 40.114 [id number] Univers 14:36:22 14:40:52 Visit Lexie Drake Stevolinda Gutierrez 350.1.13 .10 ity of [place]2.7.2.[place] [phone] Co dical nal [address] 2019-05-12 2019-05-12 Orders Doctor CARY 1.2.840.114 [id number] Univers 00:00:00 00:00:00 Only Unassigned, SEAN 350.1.13.10 ity of [facility] 4.2.7.2.686 Real as [phone] [facility] [address] 2019-05-11 2019-05-11 CARY Tee 1.2.840.114 [id number] Univers 00:00:00 00:00:00 Management Cain ESTRADA 350.1.13.10 ity of [facility] 4.2.7.2.686 Real as [phone] [facility] [address] 2019-05-11 2019-05-11 Telephone Yuliana [facility] 1.2.840.114 [id number] Univers 00:00:00 00:00:00 Wondiful A Health 350.1.13.10 ity of [place] 4.2.7.2.686 Real as Professio [phone] Co dical nal [address] 2019-05-08 2019-05-08 Telephone Sami [facility] 1.2.993.942 [id number] Univers 00:00:00 00:00:00 Maurizio Health 350.1.13.10 it y of [place] 4[place]2.[place].2.686 [place] [facility] [phone] Med ical [facility] [address] 2019-05-07 2019-05-07 Office aSmi [facility] 1.2.840.114 [id number] Univers 15:15:37 18:23:09 Visit Maurizio Health 350.1.13.10 it y of [place] 4.2.7.2.686 [place] [facility] [phone] [facility] [address] 2019-05-07 2019-05-07 Outpatient R GALLARDO, [facility] [id number] Univers 15:45:00 15:45:00 MAURIZIO ity of [facility] 2019-04-29 2019-04-29 Telephone Yuliana [facility] 1.2.840.114 [id number] Univers 00:00:00 00:00:00 Wondiful A Health 350.1.13.10 ity of [place] 4.2.7.2.686 Real as Professio [phone] Co dical nal [address] Office [facility] [address] 2019-04-29 2019-04-29 Orders Doctor CARY 1.2.840.114 [id number] Univers 00:00:00 00:00:00 Only Unassigned, SEAN 350.1.13.10 ity of [place] [facility] 4.2.7.2.686 Real as [phone] [address] 2019-04-28 2019-04-28 Outpatient R YULIANA [facility] [id number] Univers 16:00:00 16:46:38 WONDIFUL ity o f [facility] 2019-04-28 2019-04-28 Office Yuliana [facility] 1.2.840.114 [id number] Univers 15:48:42 16:46:38 Visit Wondiisrael A Health 350.1.13.10 ity of [place] 4.2.7.2.686 Real as Professio [phone] Co dical nal [address] Office Building [facility] 2019-04-13 2019-04-13 Outpatient R YULIANA [facility] [id number] Univers 14:30:00 14:56:12 WONDIFUL ity o f [facility] 2018-06-13 2018-06-13 Out[facility] [id number] [facility] [address] 13:53:00 13:53:00 [facility] Medicine Outpati ent Clinics 2018-03-18 2018-03-18 [facility] [id number] [address] 16:22:00 16:22:00 t [facility] Medicine Outpati ent Clinics 2018-03-03 2018-03-03 [facility] [id number] 15:05:00 15:05:00 t [facility] Medicine Outpati ent Clinics 2018-01-02 2018-01-02 [facility] [id number] [facility] [address] 11:45:00 11:45:00 t [facility] Medicine Outpati ent Clinics 2017-12-16 2017-12-16 [facility] [id number] 09:45:00 09:45:00 t [facility] Medicine Outpati ent Clinics 2017-10-16 2017-10-16 [facility] [id number] 14:17:00 14:17:00 t [facility] Medicine Outpati ent Clinics 2017-10-15 2017-10-15 [facility] [id number] 11:31:00 11:31:00 t [facility] Medicine Outpati ent Clinics 2017-10-09 2017-10-09 [facility] [id number] 15:30:00 15:30:00 t [facility] Medicine Outpati ent Clinics Results Test Description Test Time Test Comments Results Result Comments Source C3 COMPLEMENT 2021-02-08 15:08:22 Test Item Value Reference Range Interpretation Comme nts C3 (test code = 1480176387) 130 mg/dL 86-184 Lab Interpretation (test code = 69170-7) Normal [facility] [id number] 15:08:22 Test Item Value Reference Range Interpretation Comments C4 (test code = 8014372820) 28 mg/dL 20-59 Lab Interpretation (test code = Normal 77132-3) [facility]OL[facility] (NA, K, CL, CO2, GLUCOSE, BUN, CREATININE, CA)2021-02-08 14:53:38 Test Item Value Reference Range Interpretation Comments NA (test code = 135 mmol/L 135-145 2437259653) K (test code = 4.2 mmol/L 3.5-5.0 3206418972) CL (test code = 97 mmol/L 98-108 L 1749950331) CO2 TOTAL (test code = 32 mmol/L 23-31 H 3621856134) AGAP (test code = 2-16 5494957451) BUN (test code = 10 mg/dL 7-23 8198377705) GLUCOSE (test code = 82 mg/dL 70-110 7497731754) CREATININE (test code = 0.64 mg/dL 0.60-1.25 8767163578) CALCIUM (test code = 8.8 mg/dL 8.6-10.6 7480705339) eGFR (test code = mL/min/1.73m2 6285820449) BERYL (test code = BERYL) Association of Glomerular Filtration Rate (GFR) and Staging of Kidney Disease* + --+ --+ ------+| GFR (mL/min/1.73 m2) ?| With Kidney Damage ?| ?Without Kidney Damage+ --------+ --------+ +| ?>90 ?| ?Stage one ?| ? Normal ?+ ---+ ---+ -------+| ?60-89 ?| ?Stage two ?| ? Decreased GFR ? + --+ --+ ------+| ?30-59 ?| ?Stage three ?| ? Stage three ? + --+ --+ ------+| ?15-29 ?| ?Stage four ? | ? Stage four ?+ ---+ ---+ -------+| ?<15 (or dialysis) ? ?| ?Stage five ? | ? Stage five ?+ ---+ ---+ -------+ *Each stage assumes the associated GFR level has been in effect for at least three months. ?Stages 1 to 5, with or without kidney disease, indicate chronic kidney disease. Notes: Determination of stages one and two (with eGFR >59mL/min/1.73 m2) requires estimation of kidney damage for at least three months as defined by structural or functional abnormalities of the kidney, manifested by either:Pathological abnormalities or Markers of kidney damage (including abnormalities in the composition of the blood or urine or abnormalities in imaging tests). Lab Interpretation Abnormal (test code = 83731-9) [facility] WITH [id number] 13:13:25 Test Item Value Reference Range Interpretation Comments WBC (test code = See_Comment [Automated 6690-2) message] The sy stem which generated this result transmitted reference range : 4.20 - 10.70 10*3/?L. The reference range was not used to interpret this result as normal/abnormal . RBC (test code = See_Comment L [Automated 789-8) message] The sy stem which generated this result transmitted reference range : 4.26 - 5.52 10*6/?L. The reference range was not used to interpret this result as normal/abnormal . HGB (test code = 11.4 g/dL 12.2-16.4 L 718-7) HCT (test code = 37.0 % 38.4-49.3 L 4544-3) MCV (test code = 98.4 fL 81.7-95.6 H 787-2) MCH (test code = 30.3 pg 26.1-32.7 785-6) MCHC (test code = 30.8 g/dL 31.2-35.0 L 786-4) RDW-SD (test code = 56.4 fL 38.5-51.6 H 81416-0) RDW-CV (test code = 15.8 % 12.1-15.4 H 788-0) PLT (test code = See_Comment H [Automated 777-3) message] The sy stem which generated this result transmitted reference range : 150 - 328 10*3/ ?L. The reference r kevin was not used to interpret this result as normal/abnormal . MPV (test code = 10.3 fL 9.8-13.0 89761-0) NRBC/100 WBC (test See_Comment [Automat ed code = 1775568412) message] The system which generated this result transmitted reference range : 0.0 - 10.0 /100 WBCs. The refer ence range was not u sed to interpret th is result as normal/abnormal . NRBC x10^3 (test code <0.01 See_Comment [Auto mated = 1846505496) message] The s ystem which generated this result transmitted reference range : 10*3/?L. The reference range was not used to interpret this result as normal/abnormal . GRAN MAT (NEUT) % 82.2 % (test code = 770-8) IMM GRAN % (test code 1.20 % = 8785389449) LYMPH % (test code = 7.7 % 736-9) MONO % (test code = 5.2 % 5905-5) EOS % (test code = 2.7 % 713-8) BASO % (test code = 1.0 % 706-2) GRAN MAT x10^3(ANC) 6.77 10*3/uL 1.99-6.95 (test code = 7176968729) IMM GRAN x10^3 (test 0.10 10*3/uL 0.00-0.06 H code = 5998747064) LYMPH x10^3 (test code 0.63 10*3/uL 1.09-3.23 L = 731-0) MONO x10^3 (test code 0.43 10*3/uL 0.36-1.02 = 742-7) EOS x10^3 (test code = 0.22 10*3/uL 0.06-0.53 711-2) BASO x10^3 (test code 0.08 10*3/uL 0.01-0.09 = 704-7) Lab Interpretation Abnormal (test code = 58908-4) [facility] [id number] 22:54:44 Test Item Value Reference Range Interpretation Comments FREE T4 (test code = See_Comment [Autom ated message] 0266101874) The system Lumiata generated this result transmitted ref erence range: 0.78 - 2 .20 ng/dL:. The ref erence range was not u sed to interpret this result as normal/abnor mal. Lab Interpretation (test Normal code = 90606-4) [facility]. METABOLIC PANEL (61233)2021-02-07 12:13:38 Test Item Value Reference Range Interpretation Comments NA (test code = 134 mmol/L 135-145 L 2776460999) K (test code = 3.9 mmol/L 3.5-5.0 7881685547) CL (test code = 96 mmol/L 98-108 L 4863296789) CO2 TOTAL (test code = 34 mmol/L 23-31 H 7819665149) AGAP (test code = 2-16 8303834633) BUN (test code = 9 mg/dL 7-23 4086055028) GLUCOSE (test code = 89 mg/dL 70-110 2541695206) CREATININE (test code = 0.66 mg/dL 0.60-1.25 1068046852) TOTAL BILI (test code = 0.4 mg/dL 0.1-1.9 1999279721) CALCIUM (test code = 8.6 mg/dL 8.6-10.6 4656698609) T PROTEIN (test code = 5.8 g/dL 6.3-8.2 L 1227449764) ALBUMIN (test code = 2.9 g/dL 3.5-5.0 L 7222653790) ALK PHOS (test code = 130 U/L 34-122 H 7349238107) ALTv (test code = 13 U/L 5-50 1742-6) AST(SGOT) (test code = 19 U/L 13-40 2234267039) eGFR (test code = mL/min/1.73m2 4673562395) BERYL (test code = BERYL) Association of Glomerular Filtration Rate (GFR) and Staging of Kidney Disease* + --+ --+ ------+| GFR (mL/min/1.73 m2) ?| With Kidney Damage ?| ?Without Kidney Damage+ --------+ --------+ +| ?>90 ?| ?Stage one ?| ? Normal ?+ ---+ ---+ -------+| ?60-89 ?| ?Stage two ?| ? Decreased GFR ? + --+ --+ ------+| ?30-59 ?| ?Stage three ?| ? Stage three ? + --+ --+ ------+| ?15-29 ?| ?Stage four ? | ? Stage four ?+ ---+ ---+ -------+| ?<15 (or dialysis) ? ?| ?Stage five ? | ? Stage five ?+ ---+ ---+ -------+ *Each stage assumes the associated GFR level has been in effect for at least three months. ?Stages 1 to 5, with or without kidney disease, indicate chronic kidney disease. Notes: Determination of stages one and two (with eGFR >59mL/min/1.73 m2) requires estimation of kidney damage for at least three months as defined by structural or functional abnormalities of the kidney, manifested by either:Pathological abnormalities or Markers of kidney damage (including abnormalities in the composition of the blood or urine or abnormalities in imaging tests). Lab Interpretation Abnormal (test code = 95936-5) [facility] WITH [id number] 11:14:35 Test Item Value Reference Range Interpretation Comments WBC (test code = See_Comment [Automated 6690-2) message] The sy stem which generated this result transmitted reference range : 4.20 - 10.70 10*3/?L. The reference range was not used to interpret this result as normal/abnormal . RBC (test code = See_Comment L [Automated 789-8) message] The sy stem which generated this result transmitted reference range : 4.26 - 5.52 10*6/?L. The reference range was not used to interpret this result as normal/abnormal . HGB (test code = 9.8 g/dL 12.2-16.4 L 718-7) HCT (test code = 30.3 % 38.4-49.3 L 4544-3) MCV (test code = 95.3 fL 81.7-95.6 787-2) MCH (test code = 30.8 pg 26.1-32.7 785-6) MCHC (test code = 32.3 g/dL 31.2-35.0 786-4) RDW-SD (test code = 54.2 fL 38.5-51.6 H 23151-1) RDW-CV (test code = 15.7 % 12.1-15.4 H 788-0) PLT (test code = See_Comment H [Automated 777-3) message] The sy stem which generated this result transmitted reference range : 150 - 328 10*3/ ?L. The reference r kevin was not used to interpret this result as normal/abnormal . MPV (test code = 10.4 fL 9.8-13.0 49738-9) NRBC/100 WBC (test See_Comment [Automat ed code = 5090219337) message] The system which generated this result transmitted reference range : 0.0 - 10.0 /100 WBCs. The refer ence range was not u sed to interpret th is result as normal/abnormal . NRBC x10^3 (test code <0.01 See_Comment [Auto mated = 1607874934) message] The s ystem which generated this result transmitted reference range : 10*3/?L. The reference range was not used to interpret this result as normal/abnormal . GRAN MAT (NEUT) % 75.8 % (test code = 770-8) IMM GRAN % (test code 0.80 % = 7178445903) LYMPH % (test code = 11.6 % 736-9) MONO % (test code = 8.6 % 5905-5) EOS % (test code = 1.9 % 713-8) BASO % (test code = 1.3 % 706-2) GRAN MAT x10^3(ANC) 5.44 10*3/uL 1.99-6.95 (test code = 2607102852) IMM GRAN x10^3 (test 0.06 10*3/uL 0.00-0.06 code = 0290136091) LYMPH x10^3 (test code 0.83 10*3/uL 1.09-3.23 L = 731-0) MONO x10^3 (test code 0.62 10*3/uL 0.36-1.02 = 742-7) EOS x10^3 (test code = 0.14 10*3/uL 0.06-0.53 711-2) BASO x10^3 (test code 0.09 10*3/uL 0.01-0.09 = 704-7) Lab Interpretation Abnormal (test code = 68979-5) [facility]2021-02-07 06:13:37 Test Item Value Reference Range Interpretation Comments POCT GLU (test code = 8297264962) 96 mg/dL 70-110 Lab Interpretation (test code = Normal 24858-7) [facility] [id number] 05:08:55 Test Item Value Reference Interpretation Comments Range TROPONIN I (test 0.005 ng/mL See_Comment [Automated code = 7675785832) message] The system which generated this result transmitted reference range : <=0.034. The reference range was not used to interpret this result as normal/abnormal . BERYL (test code = Reference (Normal) BERYL) Range (defined by the 99th percentile reference limit): <= 0.034 ng/mL Note: Cardiac troponin begins to rise 3-4 hours after the onset of ischemia. Repeat in 4-6 hours if the sample was drawn within 3-4 hours of the onset of the symptom and found normal. Diagnosis of myocardial injury is made with acute changes in cTn concentrations with at least one serial sample above the 99th percentile upper reference limit (URL), taken together with the patient's clinical presentation. Biotin has been reported to cause a negative bias, interpret results relative to patient's use of biotin. Lab Interpretation Normal (test code = 82819-0) [facility]2021-02-07 04:12:08 Test Item Value Reference Range Interpretation Comments POCT GLU (test code = 3167555588) 111 mg/dL 70-110 H Lab Interpretation (test code = Abnormal 43849-6) [facility]-RE[facility] [id number] 01:07:01 Test Item Value Reference Range Interpretation Comments CRP (test code = 5059986719) 11.4 mg/dL <1.0 H Lab Interpretation (test code = Abnormal 41322-9) [facility]vineSPUT[facility] [id number] 23:08:27 Test Item Value Reference Range Interpretation Comments SPUTUM CULTURE (test Specimen cellular code = 622-1) elements do not represent lower respiratory tract. Specimen rejected for routine bacterial culture. Suggest reorder and recollection. Gram stain (test code Moderate Epithelial = 664-3) cells [facility]-REACT[facility] [id number] 16:44:49 Test Item Value Reference Range Interpretation Comments CRP (test code = 5538443971) 11.7 mg/dL <0.8 H Lab Interpretation (test code = Abnormal 02450-1) [facility]vineOSMOLALITY, SERUM OR [id number] 16:19:20 Test Item Value Reference Range Interpretation Comments OSMOLALITY (test code = See_Comment [Au tomated message] 6561182906) The system Lumiata generated this result transmitted ref erence range: 278 - 30 5 mOsm/kg. The re ference range was not u sed to interpret this result as normal/abnor mal. Lab Interpretation (test Normal code = 71957-1) [facility]vine[facility]ALCITONIN2021-11-08 15:55:14 Test Item Value Reference Range Interpretation Comments Procalcitonin (test 0.08 ng/mL <0.08 H code = 7320362715) BERYL (test code = BERYL) INTERPRETATION OF PROCALCITONIN RESULTS IN ADULTS >= 18 YEARS OF AGE Initiation and discontinuation of antibiotics on patients with suspected or confirmed Lower Respiratory Tract Infection in Adults >= 18 years of age. + +-------- --------+ + -----+|Procalcitonin |Interpretation ?|Antibiotic ? ? |Considerations ? |ng/mL ? | ?|recommendation | ? + +-------- --------+ + -----+| <0.1 ? | Bacterial ? ? ?| Strongly ? ? ?| ? | ?| infection very | discouraged ? | Overruling: ? | ?| unlikely ? ? ? | ? | ? Clinically unstable ? ? ? + +-------- --------+ + ? High risk for adverse ? ? | <0.25 ?| Bacterial ? ? ?| Discouraged ? | ? outcome ? | ?| infection ? ? ?| ? | ? SEE IMPORTANT NOTE ?| ?| unlikely ? ? ? | ? | ? + +-------- --------+ + -----+| >=0.25 ? ? ? | Bacterial ? ? ?| Encouraged ? ?| ? | ?| infection ? ? ?| ? | ? | ?| likely ? | ? | Consider treatment failure ?+ +------- ---------+ -+ if levels does not decrease | >0.5 ? | Bacterial ? ? ?| Strongly ? ? ?| appropriately ? | ?| infection very | encouraged ? ?| ? | ?| likely ? | ? | ? + +-------- --------+ + -----+ Discontinuation of antibiotics in high-acuity patients with suspected or confirmed sepsis in Adults >= 18 years of age. + +-------- --------+ + -----+|Procalcitonin |Interpretation ?|Antibiotic ? ? |Considerations ? |ng/mL ? | ?|recommendation | ? + +-------- --------+ + -----+| <0.25 ?| Bacterial ? ? ?| Strongly ? ? ?| ? | ?| infection very | discouraged ? | Overruling: ? | ?| unlikely ? ? ? | ? | ? Clinically unstable ? ? ? + +-------- --------+ + ? High risk for adverse ? ? | <0.5 or drop | Bacterial ? ? ?| Discouraged ? | ? outcome ? | >80% from ? ?| infection ? ? ?| ? | ? SEE IMPORTANT NOTE ?| highest PCT ?| unlikely ? ? ? | ? | ? | level ?| ?| ? | ? + +-------- --------+ + -----+| >=0.5 ?| Bacterial ? ? ?| Encouraged ? ?| ? | ?| infection ? ? ?| ? | ? | ?| likely ? | ? | Consider treatment failure ?+ +------- ---------+ -+ if levels does not decrease | >1.0 ? | Bacterial ? ? ?| Strongly ? ? ?| appropriately ? | ?| infection very | encouraged ? ?| ? | ?| likely ? | ? | ? + +-------- --------+ + -----+ Percentage of drop of Procalcitonin calculation for Discontinuation of antibiotics in high-acuity patients with suspected or confirmed sepsis in Adults >= 18 years of age. ? Procalcitonin highest{}-Procalcitonin current{}Delta Procalcitonin = x100% ? Procalcitonin current {} IMPORTANT NOTE: Procalcitonin may be elevated without bacterial infection by physiologic stress related to trauma, henriquez, chronic dialysis, metastatic cancer, surgery in the past seven days, malaria, some fungal infections, and some forms of vasculitis. The interpretation algorithm may not apply to patients with immunosuppression (equivalent of >10 mg of prednisone daily), HIV with CD4 cell count < 350 cells/mm3, active malignancy on systemic chemotherapy, solid organ transplant or hematopoietic stem cell transplantation, or hospital acquired pneumonia. Additionally, some clinical trials of procalcitonin have excluded patients with shock requiring vasopressor use, acute respiratory failure requiring mechanical ventilation, or those with known lung abscess/empyema. For further information please refer to:[email or web address] Lab Interpretation Abnormal (test code = 91638-1) [facility]vineHEPAT[facility] FUN[facility] PANEL (67393) (ALB,T.PRO,BILI T,BU/BC,ALT,AST,ALK PHOS)2021-02-06 13:34:22 Test Item Value Reference Range Interpretation Comments TOTAL BILI (test code = 7529687185) 0.6 mg/dL 0.1-1.1 BILI UNCON (test code = 6994875088) 0.3 mg/dL 0.1-1.1 BILI CONJ (test code = 9003172321) 0.0 mg/dL 0.0-0.3 T PROTEIN (test code = 5835517251) 6.0 g/dL 6.3-8.2 L ALBUMIN (test code = 3792996043) 3.0 g/dL 3.5-5.0 L ALK PHOS (test code = 0680341235) 161 U/L 34-122 H ALTv (test code = 1742-6) 14 U/L 5-50 AST(SGOT) (test code = 2628104498) 20 U/L 13-40 Lab Interpretation (test code = Abnormal 76232-9) [facility] (NA, K, CL, CO2, GLUCOSE, BUN, CREATININE, CA)2021-02-06 13:34:02 Test Item Value Reference Range Interpretation Comments NA (test code = 135 mmol/L 135-145 7801673143) K (test code = 4.0 mmol/L 3.5-5.0 0881714933) CL (test code = 100 mmol/L 98-108 7225629726) CO2 TOTAL (test code = 30 mmol/L 23-31 5964571239) AGAP (test code = 2-16 4943985554) BUN (test code = 4 mg/dL 7-23 L 7161720734) GLUCOSE (test code = 96 mg/dL 70-110 0786039013) CREATININE (test code = 0.82 mg/dL 0.60-1.25 8190405649) CALCIUM (test code = 9.1 mg/dL 8.6-10.6 6691404312) eGFR (test code = mL/min/1.73m2 3429005465) BERYL (test code = BERYL) Association of Glomerular Filtration Rate (GFR) and Staging of Kidney Disease* + --+ --+ ------+| GFR (mL/min/1.73 m2) ?| With Kidney Damage ?| ?Without Kidney Damage+ --------+ --------+ +| ?>90 ?| ?Stage one ?| ? Normal ?+ ---+ ---+ -------+| ?60-89 ?| ?Stage two ?| ? Decreased GFR ? + --+ --+ ------+| ?30-59 ?| ?Stage three ?| ? Stage three ? + --+ --+ ------+| ?15-29 ?| ?Stage four ? | ? Stage four ?+ ---+ ---+ -------+| ?<15 (or dialysis) ? ?| ?Stage five ? | ? Stage five ?+ ---+ ---+ -------+ *Each stage assumes the associated GFR level has been in effect for at least three months. ?Stages 1 to 5, with or without kidney disease, indicate chronic kidney disease. Notes: Determination of stages one and two (with eGFR >59mL/min/1.73 m2) requires estimation of kidney damage for at least three months as defined by structural or functional abnormalities of the kidney, manifested by either:Pathological abnormalities or Markers of kidney damage (including abnormalities in the composition of the blood or urine or abnormalities in imaging tests). Lab Interpretation Abnormal (test code = 70427-4) [facility] with [id number] 13:03:38 Test Item Value Reference Range Interpretation Comments WBC (test code = See_Comment H [Automated 6690-2) message] The sy stem which generated this result transmitted reference range : 4.20 - 10.70 10*3/?L. The reference range was not used to interpret this result as normal/abnormal . RBC (test code = See_Comment L [Automated 789-8) message] The sy stem which generated this result transmitted reference range : 4.26 - 5.52 10*6/?L. The reference range was not used to interpret this result as normal/abnormal . HGB (test code = 10.6 g/dL 12.2-16.4 L 718-7) HCT (test code = 32.7 % 38.4-49.3 L 4544-3) MCV (test code = 94.5 fL 81.7-95.6 787-2) MCH (test code = 30.6 pg 26.1-32.7 785-6) MCHC (test code = 32.4 g/dL 31.2-35.0 786-4) RDW-SD (test code = 53.2 fL 38.5-51.6 H 07645-4) RDW-CV (test code = 15.4 % 12.1-15.4 788-0) PLT (test code = See_Comment H [Automated 777-3) message] The sy stem which generated this result transmitted reference range : 150 - 328 10*3/ ?L. The reference r kevin was not used to interpret this result as normal/abnormal . MPV (test code = 10.0 fL 9.8-13.0 44788-8) NRBC/100 WBC (test See_Comment [Automat ed code = 1740168359) message] The system which generated this result transmitted reference range : 0.0 - 10.0 /100 WBCs. The refer ence range was not u sed to interpret th is result as normal/abnormal . NRBC x10^3 (test code <0.01 See_Comment [Auto mated = 2854745143) message] The s [employer] which generated this result transmitted reference range : 10*3/?L. The reference range was not used to interpret this result as normal/abnormal . GRAN MAT (NEUT) % 79.1 % (test code = 770-8) IMM GRAN % (test code 1.10 % = 3118730096) LYMPH % (test code = 8.1 % 736-9) MONO % (test code = 9.7 % 5905-5) EOS % (test code = 1.5 % 713-8) BASO % (test code = 0.5 % 706-2) GRAN MAT x10^3(ANC) 8.85 10*3/uL 1.99-6.95 H (test code = 5380596764) IMM GRAN x10^3 (test 0.12 10*3/uL 0.00-0.06 H code = 3680450790) LYMPH x10^3 (test code 0.90 10*3/uL 1.09-3.23 L = 731-0) MONO x10^3 (test code 1.08 10*3/uL 0.36-1.02 H = 742-7) EOS x10^3 (test code = 0.17 10*3/uL 0.06-0.53 711-2) BASO x10^3 (test code 0.06 10*3/uL 0.01-0.09 = 704-7) Lab Interpretation Abnormal (test code = 42208-3) [facility]vineCREATINE [id number] 05:54:34 Test Item Value Reference Range Interpretation Comments CK (test code = 3419807377) 54 U/L 33-194 Lab Interpretation (test code = Normal 32075-8) [facility]vineLactic Acid Whole [id number] 04:52:46 Test Item Value Reference Range Interpretation Comments LACTIC ACID (test code = 1.32 mmol/L 0.50-2.20 6330265185) Lab Interpretation (test code = Normal 74678-4) [facility]vineTHYROID STIMULATING [id number] 22:43:50 Test Item Value Reference Range Interpretation Comments TSH (test code = See_Comment H [Automated message] 8513081141) The system [employer] generated this result transmitted ref erence range: 0.45 - 4 .70 mIU/L. The refe rence range was not u sed to interpret this result as normal/abnor mal. Lab Interpretation (test Abnormal code = 38083-9) [facility] [id number] 22:40:52 Test Item Value Reference Range Interpretation Comments ESR (test code = See_Comment H [Automated message] 3704118411) The system [employer] generated this result transmitted ref erence range: 0 - 10 m m/HR. The reference r kevin was not used to interpret this result as normal/abnor mal. Lab Interpretation (test Abnormal code = 61430-1) [facility] [id number] 22:30:12 Test Item Value Reference Range Interpretation Comments FREE T4 (test code = See_Comment [Autom ated message] 9355538653) The system [employer] generated this result transmitted ref erence range: 0.78 - 2 .20 ng/dL:. The ref erence range was not u sed to interpret this result as normal/abnor mal. Lab Interpretation (test Normal code = 98350-9) [facility] [id number] 22:29:51 Test Item Value Reference Range Interpretation Comments FREE T3 (test code = 1125610985) 4.09 pg/mL 2.77-5.27 Lab Interpretation (test code = Normal 19711-5) [facility]vineURIC [id number] 22:12:11 Test Item Value Reference Range Interpretation Comments URIC ACID (test code = 4693563152) 5.9 mg/dL 3.6-8.0 Lab Interpretation (test code = Normal 84031-4) [facility]vineTROPONIN [id number] 17:41:37 Test Item Value Reference Interpretation Comments Range TROPONIN I (test <0.012 See_Comment [Automated code = 9890353950) message] The system which generated this result transmitted reference range : <=0.034 ng/mL. The reference range was not used to interpret this result as normal/abnormal . BERYL (test code = Reference (Normal) BERYL) Range (defined by the 99th percentile reference limit): <= 0.034 ng/mL Note: Cardiac troponin begins to rise 3-4 hours after the onset of ischemia. Repeat in 4-6 hours if the sample was drawn within 3-4 hours of the onset of the symptom and found normal. Diagnosis of myocardial injury is made with acute changes in cTn concentrations with at least one serial sample above the 99th percentile upper reference limit (URL), taken together with the patient's clinical presentation. Biotin has been reported to cause a negative bias, interpret results relative to patient's use of biotin. Lab Interpretation Normal (test code = 21178-4) [facility]vineN-TERMINAL [id number] 17:38:40 Test Item Value Reference Range Interpretation Comments NT-proBNP (test code 402 pg/mL See_Comment H [Autom ated = 0857524984) message] The system which generated this result transmitted reference range : <=125. The reference range was not used to interpret this result as normal/abnormal . BERYL (test code = BERYL) Biotin has been reported to cause a negative bias, interpret results relative to patient's use of biotin. Lab Interpretation Abnormal (test code = 67777-2) [facility]. METABOLIC PANEL ([id number])2021-02-05 17:30:19 Test Item Value Reference Range Interpretation Comments NA (test code = 130 mmol/L 135-145 L 1985515764) K (test code = 3.7 mmol/L 3.5-5.0 7764585114) CL (test code = 94 mmol/L 98-108 L 8427072246) CO2 TOTAL (test code = 26 mmol/L 23-31 5687637183) AGAP (test code = 2-16 7144863408) BUN (test code = 5 mg/dL 7-23 L 3119856240) GLUCOSE (test code = 112 mg/dL 70-110 H 7989170197) CREATININE (test code = 0.70 mg/dL 0.60-1.25 4311660063) TOTAL BILI (test code = 1.1 mg/dL 0.1-1.0 7910056317) CALCIUM (test code = 9.4 mg/dL 8.6-10.6 4683946602) T PROTEIN (test code = 7.0 g/dL 6.3-8.2 5526154683) ALBUMIN (test code = 3.7 g/dL 3.5-5.0 6052671976) ALK PHOS (test code = 212 U/L 34-122 H 8890007719) ALTv (test code = 18 U/L 5-50 2-6) AST(SGOT) (test code = 23 U/L 13-40 8140618544) eGFR (test code = mL/min/1.73m2 2129305589) BERYL (test code = BERYL) Association of Glomerular Filtration Rate (GFR) and Staging of Kidney Disease* + --+ --+ ------+| GFR (mL/min/1.73 m2) ?| With Kidney Damage ?| ?Without Kidney Damage+ --------+ --------+ +| ?>90 ?| ?Stage one ?| ? Normal ?+ ---+ ---+ -------+| ?60-89 ?| ?Stage two ?| ? Decreased GFR ? + --+ --+ ------+| ?30-59 ?| ?Stage three ?| ? Stage three ? + --+ --+ ------+| ?15-29 ?| ?Stage four ? | ? Stage four ?+ ---+ ---+ -------+| ?<15 (or dialysis) ? ?| ?Stage five ? | ? Stage five ?+ ---+ ---+ -------+ *Each stage assumes the associated GFR level has been in effect for at least three months. ?Stages 1 to 5, with or without kidney disease, indicate chronic kidney disease. Notes: Determination of stages one and two (with eGFR >59mL/min/1.73 m2) requires estimation of kidney damage for at least three months as defined by structural or functional abnormalities of the kidney, manifested by either:Pathological abnormalities or Markers of kidney damage (including abnormalities in the composition of the blood or urine or abnormalities in imaging tests). Lab Interpretation Abnormal (test code = 91389-0) [facility] GrapevineaPTT2021-11-07 17:28:38 Test Item Value Reference Range Interpretation Comments APTT Patient (test See_Comment [Automat ed code = 3173-2) message] The system which generated this result transmitted reference range : 23 - 38 Seconds . The reference range was not used to interpr et this result as normal/abnormal . BERYL (test code = BERYL) The [facility] patient population mean normal value for aPTT is 30 seconds. Lab Interpretation Normal (test code = 65598-3) [facility] GrapevinePROTHROMBIN TIME / [id number] 17:26:17 Test Item Value Reference Range Interpretation Comments PROTIME PATIENT (test See_Comment [Auto mated message] code = 5964-2) The system wh ich generated this result transmitted ref erence range: 12.0 - 1 4.7 Seconds. The re ference range was not u sed to interpret this result as normal/abnor mal. INR (test code = 6301-6) Nor mal INR <1.1; Warfarin Therap eutic range 2.0 to 3. 0 or 2.5 to 3.5, dep ending upon the indica tions. Lab Interpretation (test Normal code = 26818-5) [facility]vineCB WITH [id number] 17:18:38 Test Item Value Reference Range Interpretation Comments WBC (test code = See_Comment H [Automated 6690-2) message] The system which generated this result transmit meng reference range : 4.20 - 10.70 10*3/?L. The reference range was not used to interpret this result as normal/abnormal . RBC (test code = See_Comment L [Automated 789-8) message] The system which generated this result transmit meng reference range : 4.26 - 5.52 10*6/?L. The reference range was not used to interpret this result as normal/abnormal . HGB (test code = 12.0 g/dL 12.2-16.4 L 718-7) HCT (test code = 36.5 % 38.4-49.3 L 4544-3) MCV (test code = 92.4 fL 81.7-95.6 787-2) MCH (test code = 30.4 pg 26.1-32.7 785-6) MCHC (test code = 32.9 g/dL 31.2-35.0 786-4) RDW-SD (test code = 52.5 fL 38.5-51.6 H 33621-7) RDW-CV (test code = 15.4 % 12.1-15.4 788-0) PLT (test code = See_Comment H [Automated 777-3) message] The system which generated this result transmit meng reference range : 150 - 328 10*3/ ?L. The reference range was not u sed to interpret th is result as normal/abnormal . MPV (test code = 9.8 fL 9.8-13.0 83190-9) NRBC/100 WBC (test See_Comment [Automat ed code = 3308384518) message] The system which generated this result transmit meng reference range : 0.0 - 10.0 /100 WBCs. The reference range was not used to interpret this result as normal/abnormal . NRBC x10^3 (test code <0.01 See_Comment [Auto mated = 1668574740) message] The system which generated this result transmit meng reference range : 10*3/?L. The reference range was not used to interpret this result as normal/abnormal . GRAN MAT (NEUT) % 85.3 % (test code = 770-8) IMM GRAN % (test code 0.80 % = 3238043241) LYMPH % (test code = 5.2 % 736-9) MONO % (test code = 7.6 % 5905-5) EOS % (test code = 0.7 % 713-8) BASO % (test code = 0.4 % 706-2) GRAN MAT x10^3(ANC) 12.35 10*3/uL 1.99-6.95 H (test code = 5679645085) IMM GRAN x10^3 (test 0.12 10*3/uL 0.00-0.06 H code = 6008310386) LYMPH x10^3 (test code 0.75 10*3/uL 1.09-3.23 L = 731-0) MONO x10^3 (test code 1.10 10*3/uL 0.36-1.02 H = 742-7) EOS x10^3 (test code = 0.10 10*3/uL 0.06-0.53 711-2) BASO x10^3 (test code 0.06 10*3/uL 0.01-0.09 = 704-7) Lab Interpretation Abnormal (test code = 12425-1) [facility] WITH [id number] 14:44:42 Test Item Value Reference Range Interpretation Comments WBC (test code = See_Comment [Automated 6690-2) message] The sy stem which generated this result transmitted reference range : 4.20 - 10.70 10*3/?L. The reference range was not used to interpret this result as normal/abnormal . RBC (test code = See_Comment L [Automated 789-8) message] The sy stem which generated this result transmitted reference range : 4.26 - 5.52 10*6/?L. The reference range was not used to interpret this result as normal/abnormal . HGB (test code = 11.1 g/dL 12.2-16.4 L 718-7) HCT (test code = 34.3 % 38.4-49.3 L 4544-3) MCV (test code = 95.5 fL 81.7-95.6 787-2) MCH (test code = 30.9 pg 26.1-32.7 785-6) MCHC (test code = 32.4 g/dL 31.2-35.0 786-4) RDW-SD (test code = 51.9 fL 38.5-51.6 H 47737-8) RDW-CV (test code = 14.7 % 12.1-15.4 788-0) PLT (test code = See_Comment [Automated 777-3) message] The sy stem which generated this result transmitted reference range : 150 - 328 10*3/ ?L. The reference r kevin was not used to interpret this result as normal/abnormal . MPV (test code = 10.3 fL 9.8-13.0 85995-4) NRBC/100 WBC (test See_Comment [Automat ed code = 1667247007) message] The system which generated this result transmitted reference range : 0.0 - 10.0 /100 WBCs. The refer ence range was not u sed to interpret th is result as normal/abnormal . NRBC x10^3 (test code <0.01 See_Comment [Auto mated = 0004781356) message] The s ystem which generated this result transmitted reference range : 10*3/?L. The reference range was not used to interpret this result as normal/abnormal . GRAN MAT (NEUT) % 69.1 % (test code = 770-8) IMM GRAN % (test code 4.60 % = 6342973891) LYMPH % (test code = 14.4 % 736-9) MONO % (test code = 9.3 % 5905-5) EOS % (test code = 1.8 % 713-8) BASO % (test code = 0.8 % 706-2) GRAN MAT x10^3(ANC) 5.26 10*3/uL 1.99-6.95 (test code = 7928090197) IMM GRAN x10^3 (test 0.35 10*3/uL 0.00-0.06 H code = 9691825529) LYMPH x10^3 (test code 1.10 10*3/uL 1.09-3.23 = 731-0) MONO x10^3 (test code 0.71 10*3/uL 0.36-1.02 = 742-7) EOS x10^3 (test code = 0.14 10*3/uL 0.06-0.53 711-2) BASO x10^3 (test code 0.06 10*3/uL 0.01-0.09 = 704-7) BANDS (test code = Increased A 1249143319) TOXIC CHANGES (test Present A code = 803-7) Lab Interpretation Abnormal (test code = 20840-8) [facility]vineBLOOD CULTURE [id number] 13:15:44 Test Item Value Reference Range Interpretation Comments Blood Culture Coagulase negative Addition al Workup (test Staphylococcus work-up perfo rmed code = 600-7) only per reque st. Culture plate(s ) will be saved until this date : - 02/05/21 Gram stain Gram positive cocci Aerobic Bottle (test code = 664-3) [facility]vineCOMP. METABOLIC PANEL ([id number])2021-01-31 12:37:27 Test Item Value Reference Range Interpretation Comments NA (test code = 137 mmol/L 135-145 2465743682) K (test code = 3.4 mmol/L 3.5-5.0 L 5298338749) CL (test code = 103 mmol/L 98-108 6037109386) CO2 TOTAL (test code = 29 mmol/L 23-31 4833557877) AGAP (test code = 2-16 4004650891) BUN (test code = <2 7-23 L 2664735262) GLUCOSE (test code = 83 mg/dL 70-110 0423923895) CREATININE (test code = 0.38 mg/dL 0.60-1.25 L 4006330708) TOTAL BILI (test code = 0.6 mg/dL 0.1-1.1 0764800392) CALCIUM (test code = 8.6 mg/dL 8.6-10.6 5201421432) T PROTEIN (test code = 5.6 g/dL 6.3-8.2 L 8374827959) ALBUMIN (test code = 2.7 g/dL 3.5-5.0 L 0878483304) ALK PHOS (test code = 109 U/L 34-122 0481375933) ALTv (test code = 10 U/L 5-50 1742-6) AST(SGOT) (test code = 19 U/L 13-40 4718508041) eGFR (test code = mL/min/1.73m2 7207424027) BERYL (test code = BERYL) Association of Glomerular Filtration Rate (GFR) and Staging of Kidney Disease* + --+ --+ ------+| GFR (mL/min/1.73 m2) ?| With Kidney Damage ?| ?Without Kidney Damage+ --------+ --------+ +| ?>90 ?| ?Stage one ?| ? Normal ?+ ---+ ---+ -------+| ?60-89 ?| ?Stage two ?| ? Decreased GFR ? + --+ --+ ------+| ?30-59 ?| ?Stage three ?| ? Stage three ? + --+ --+ ------+| ?15-29 ?| ?Stage four ? | ? Stage four ?+ ---+ ---+ -------+| ?<15 (or dialysis) ? ?| ?Stage five ? | ? Stage five ?+ ---+ ---+ -------+ *Each stage assumes the associated GFR level has been in effect for at least three months. ?Stages 1 to 5, with or without kidney disease, indicate chronic kidney disease. Notes: Determination of stages one and two (with eGFR >59mL/min/1.73 m2) requires estimation of kidney damage for at least three months as defined by structural or functional abnormalities of the kidney, manifested by either:Pathological abnormalities or Markers of kidney damage (including abnormalities in the composition of the blood or urine or abnormalities in imaging tests). Lab Interpretation Abnormal (test code = 53164-0) [facility]vineLIPASE2021-11-02 12:30:33 Test Item Value Reference Range Interpretation Comments LIPASE (test code = 4805515649) 278 U/L 0-220 H Lab Interpretation (test code = Abnormal 43443-9) [facility]vineVancomycin Trough Level - Please draw trough BEFORE the 4th dose scheduled at 2000, but no more than60 mins before the dose is due.2021-01-31 01:58:04 Test Item Value Reference Range Interpretation Comments VANCO TROUGH (test code 14.2 ug/mL 10.0-20.0 = 4212967410) BERYL (test code = BERYL) Toxic Range: ?>20 ug/mL 15-20 ug/mL is recommended for severe infection or when Vancomycin FAROOQ is greater than or equal to 2. Lab Interpretation (test Normal code = 31133-6) [facility]. METABOLIC PANEL ([id number])2021-01-30 17:27:36 Test Item Value Reference Range Interpretation Comments NA (test code = 137 mmol/L 135-145 0937027035) K (test code = 3.8 mmol/L 3.5-5.0 7065816574) CL (test code = 100 mmol/L 98-108 1901267859) CO2 TOTAL (test code = 32 mmol/L 23-31 H 8902677780) AGAP (test code = 2-16 2652026696) BUN (test code = 3 mg/dL 7-23 L 0892419093) GLUCOSE (test code = 103 mg/dL 70-110 5051664434) CREATININE (test code = 0.52 mg/dL 0.60-1.25 L 6704067624) TOTAL BILI (test code = 0.3 mg/dL 0.1-1.9 5532585975) CALCIUM (test code = 8.9 mg/dL 8.6-10.6 3841487107) T PROTEIN (test code = 5.9 g/dL 6.3-8.2 L 7727183742) ALBUMIN (test code = 3.0 g/dL 3.5-5.0 L 9874840531) ALK PHOS (test code = 125 U/L 34-122 H 7106857590) ALTv (test code = 12 U/L 5-50 1742-6) AST(SGOT) (test code = 18 U/L 13-40 8389415708) eGFR (test code = mL/min/1.73m2 1583498848) BERYL (test code = BERYL) Association of Glomerular Filtration Rate (GFR) and Staging of Kidney Disease* + --+ --+ ------+| GFR (mL/min/1.73 m2) ?| With Kidney Damage ?| ?Without Kidney Damage+ --------+ --------+ +| ?>90 ?| ?Stage one ?| ? Normal ?+ ---+ ---+ -------+| ?60-89 ?| ?Stage two ?| ? Decreased GFR ? + --+ --+ ------+| ?30-59 ?| ?Stage three ?| ? Stage three ? + --+ --+ ------+| ?15-29 ?| ?Stage four ? | ? Stage four ?+ ---+ ---+ -------+| ?<15 (or dialysis) ? ?| ?Stage five ? | ? Stage five ?+ ---+ ---+ -------+ *Each stage assumes the associated GFR level has been in effect for at least three months. ?Stages 1 to 5, with or without kidney disease, indicate chronic kidney disease. Notes: Determination of stages one and two (with eGFR >59mL/min/1.73 m2) requires estimation of kidney damage for at least three months as defined by structural or functional abnormalities of the kidney, manifested by either:Pathological abnormalities or Markers of kidney damage (including abnormalities in the composition of the blood or urine or abnormalities in imaging tests). Lab Interpretation Abnormal (test code = 64256-0) [facility]vineMAGNESIUM2021-11-01 17:27:36 Test Item Value Reference Range Interpretation Comments MAGNESIUM (test code = 3906563041) 1.7 mg/dL 1.7-2.4 Lab Interpretation (test code = Normal 84392-8) [facility]vinePHOSPHORUS2021-11-01 17:27:15 Test Item Value Reference Range Interpretation Comments PHOSPHORUS (test code = 9822876885) 2.3 mg/dL 2.5-5.0 L Lab Interpretation (test code = Abnormal 05223-5) [facility]vineLIPASE2021-11-01 17:26:55 Test Item Value Reference Range Interpretation Comments LIPASE (test code = 6204816298) 1614 U/L 0-220 H Lab Interpretation (test code = Abnormal 53698-5) [facility] GrapevineGRAM POSITIVE BLOOD PATHOGENS DNA [id number] 21:31:15 Test Item Value Reference Range Interpretation Comments Coagulase Negative Positive Negative, See A Staphylococcus (test Comment/Narrative code = 49386-3) BERYL (test code = BERYL) Coagulase negative Staphylococcus (CoNS) detected by DNA probe. ?CoNS often contaminate blood cultures from skin colonization during phlebotomy. ?Preferred management is to repeat blood cultures, and monitor off antibiotics. ?Contamination is suggested by culture growth after 48 hours, or growth in single culture (i.e., one of two sets). ?True bacteremia is suggested by the fever, hypotension, and leukocytosis that are not explained by an alternative infection, or indwelling foreign devices that appear infected (catheters, lines, or prostheses). Consider Infectious Diseases consultation if differentiation of CoNS bacteremia from contamination is uncertain. If clinical context suggests true bacteremia, preferred therapy is vancomycin. Please contact the Antimicrobial Stewardship Program with questions.Pager: ?[phone] Testing included eleven identification and three resistance marker targets. Lab Interpretation Abnormal (test code = 35452-1) [facility] GrapevineBasi Metabolic Panel (NA, K, CL, CO2, GLUCOSE, BUN, CREATININE, CA)2021-01-29 09:31:45 Test Item Value Reference Range Interpretation Comments NA (test code = 133 mmol/L 135-145 L 9281137843) K (test code = 3.0 mmol/L 3.5-5.0 L 3374112442) CL (test code = 95 mmol/L 98-108 L 9334181103) CO2 TOTAL (test code = 31 mmol/L 23-31 8109657161) AGAP (test code = 2-16 0454753658) BUN (test code = 4 mg/dL 7-23 L 0285369580) GLUCOSE (test code = 70 mg/dL 70-110 8999517597) CREATININE (test code = 0.41 mg/dL 0.60-1.25 L 9618894045) CALCIUM (test code = 8.8 mg/dL 8.6-10.6 1790274206) eGFR (test code = mL/min/1.73m2 5503936392) BERYL (test code = BERYL) Association of Glomerular Filtration Rate (GFR) and Staging of Kidney Disease* + --+ --+ ------+| GFR (mL/min/1.73 m2) ?| With Kidney Damage ?| ?Without Kidney Damage+ --------+ --------+ +| ?>90 ?| ?Stage one ?| ? Normal ?+ ---+ ---+ -------+| ?60-89 ?| ?Stage two ?| ? Decreased GFR ? + --+ --+ ------+| ?30-59 ?| ?Stage three ?| ? Stage three ? + --+ --+ ------+| ?15-29 ?| ?Stage four ? | ? Stage four ?+ ---+ ---+ -------+| ?<15 (or dialysis) ? ?| ?Stage five ? | ? Stage five ?+ ---+ ---+ -------+ *Each stage assumes the associated GFR level has been in effect for at least three months. ?Stages 1 to 5, with or without kidney disease, indicate chronic kidney disease. Notes: Determination of stages one and two (with eGFR >59mL/min/1.73 m2) requires estimation of kidney damage for at least three months as defined by structural or functional abnormalities of the kidney, manifested by either:Pathological abnormalities or Markers of kidney damage (including abnormalities in the composition of the blood or urine or abnormalities in imaging tests). Lab Interpretation Abnormal (test code = 57129-5) [facility] Test Item Value Reference Range Interpretation Comments LIPASE (test code = 2984584132) 310 U/L 0-220 H Lab Interpretation (test code = Abnormal 55384-9) [facility] with [id number] 08:54:00 Test Item Value Reference Range Interpretation Comments WBC (test code = See_Comment [Automated 6690-2) message] The sy stem which generated this result transmitted reference range : 4.20 - 10.70 10*3/?L. The reference range was not used to interpret this result as normal/abnormal . RBC (test code = See_Comment L [Automated 789-8) message] The sy stem which generated this result transmitted reference range : 4.26 - 5.52 10*6/?L. The reference range was not used to interpret this result as normal/abnormal . HGB (test code = 12.5 g/dL 12.2-16.4 718-7) HCT (test code = 37.2 % 38.4-49.3 L 4544-3) MCV (test code = 93.5 fL 81.7-95.6 787-2) MCH (test code = 31.4 pg 26.1-32.7 785-6) MCHC (test code = 33.6 g/dL 31.2-35.0 786-4) RDW-SD (test code = 50.3 fL 38.5-51.6 34816-7) RDW-CV (test code = 14.6 % 12.1-15.4 788-0) PLT (test code = See_Comment [Automated 777-3) message] The sy stem which generated this result transmitted reference range : 150 - 328 10*3/ ?L. The reference r kevin was not used to interpret this result as normal/abnormal . MPV (test code = 10.0 fL 9.8-13.0 37824-5) NRBC/100 WBC (test See_Comment [Automat ed code = 0884653267) message] The system which generated this result transmitted reference range : 0.0 - 10.0 /100 WBCs. The refer ence range was not u sed to interpret th is result as normal/abnormal . NRBC x10^3 (test code <0.01 See_Comment [Auto mated = 3071627266) message] The s ystem which generated this result transmitted reference range : 10*3/?L. The reference range was not used to interpret this result as normal/abnormal . GRAN MAT (NEUT) % 79.3 % (test code = 770-8) IMM GRAN % (test code 1.90 % = 5304417853) LYMPH % (test code = 8.9 % 736-9) MONO % (test code = 7.7 % 5905-5) EOS % (test code = 1.5 % 713-8) BASO % (test code = 0.7 % 706-2) GRAN MAT x10^3(ANC) 6.39 10*3/uL 1.99-6.95 (test code = 4183383394) IMM GRAN x10^3 (test 0.15 10*3/uL 0.00-0.06 H code = 7713801863) LYMPH x10^3 (test code 0.72 10*3/uL 1.09-3.23 L = 731-0) MONO x10^3 (test code 0.62 10*3/uL 0.36-1.02 = 742-7) EOS x10^3 (test code = 0.12 10*3/uL 0.06-0.53 711-2) BASO x10^3 (test code 0.06 10*3/uL 0.01-0.09 = 704-7) Lab Interpretation Abnormal (test code = 01810-1) [facility] GLUCOSE (AUTOMATED)2021-01-28 21:09:47 Test Item Value Reference Range Interpretation Comments POCT GLU (test code = 8382609957) 88 mg/dL 70-110 Lab Interpretation (test code = Normal 05591-5) [facility] GLUCOSE (AUTOMATED)2021-01-28 16:42:52 Test Item Value Reference Range Interpretation Comments POCT GLU (test code = 4890806346) 90 mg/dL 70-110 Lab Interpretation (test code = Normal 20354-2) [facility] GLUCOSE (AUTOMATED)2021-01-28 12:58:43 Test Item Value Reference Range Interpretation Comments POCT GLU (test code = 8754489587) 112 mg/dL 70-110 H Lab Interpretation (test code = Abnormal 47005-6) [facility] [id number] 05:34:08 Test Item Value Reference Range Interpretation Comments LIPASE (test code = 1645336920) 3693 U/L 0-220 H Lab Interpretation (test code = Abnormal 64371-7) [facility] [id number] 05:30:20 Test Item Value Reference Interpretation Comments Range TROPONIN I (test <0.012 See_Comment [Automated code = 4017053163) message] The system which generated this result transmitted reference range : <=0.034 ng/mL. The reference range was not used to interpret this result as normal/abnormal . BERYL (test code = Reference (Normal) BERYL) Range (defined by the 99th percentile reference limit): <= 0.034 ng/mL Note: Cardiac troponin begins to rise 3-4 hours after the onset of ischemia. Repeat in 4-6 hours if the sample was drawn within 3-4 hours of the onset of the symptom and found normal. Diagnosis of myocardial injury is made with acute changes in cTn concentrations with at least one serial sample above the 99th percentile upper reference limit (URL), taken together with the patient's clinical presentation. Biotin has been reported to cause a negative bias, interpret results relative to patient's use of biotin. Lab Interpretation Normal (test code = 09429-9) [facility]. METABOLIC PANEL ([id number])2021-01-28 05:19:38 Test Item Value Reference Range Interpretation Comments NA (test code = 131 mmol/L 135-145 L 2669988962) K (test code = 3.5 mmol/L 3.5-5.0 6753554147) CL (test code = 86 mmol/L 98-108 L 0156824294) CO2 TOTAL (test code = 34 mmol/L 23-31 H 3793092671) AGAP (test code = 2-16 6276000336) BUN (test code = 8 mg/dL 7-23 4915558665) GLUCOSE (test code = 114 mg/dL 70-110 H 4512950034) CREATININE (test code = 0.51 mg/dL 0.60-1.25 L 7152887210) TOTAL BILI (test code = 1.0 mg/dL 0.1-1.0 2889565143) CALCIUM (test code = 9.9 mg/dL 8.6-10.6 7225087761) T PROTEIN (test code = 7.5 g/dL 6.3-8.2 9183464883) ALBUMIN (test code = 3.9 g/dL 3.5-5.0 5888262048) ALK PHOS (test code = 171 U/L 34-122 H 5189972781) ALTv (test code = 13 U/L 5-50 1742-6) AST(SGOT) (test code = 22 U/L 13-40 0144919397) eGFR (test code = mL/min/1.73m2 2031596636) BERYL (test code = BERYL) Association of Glomerular Filtration Rate (GFR) and Staging of Kidney Disease* + --+ --+ ------+| GFR (mL/min/1.73 m2) ?| With Kidney Damage ?| ?Without Kidney Damage+ --------+ --------+ +| ?>90 ?| ?Stage one ?| ? Normal ?+ ---+ ---+ -------+| ?60-89 ?| ?Stage two ?| ? Decreased GFR ? + --+ --+ ------+| ?30-59 ?| ?Stage three ?| ? Stage three ? + --+ --+ ------+| ?15-29 ?| ?Stage four ? | ? Stage four ?+ ---+ ---+ -------+| ?<15 (or dialysis) ? ?| ?Stage five ? | ? Stage five ?+ ---+ ---+ -------+ *Each stage assumes the associated GFR level has been in effect for at least three months. ?Stages 1 to 5, with or without kidney disease, indicate chronic kidney disease. Notes: Determination of stages one and two (with eGFR >59mL/min/1.73 m2) requires estimation of kidney damage for at least three months as defined by structural or functional abnormalities of the kidney, manifested by either:Pathological abnormalities or Markers of kidney damage (including abnormalities in the composition of the blood or urine or abnormalities in imaging tests). Lab Interpretation Abnormal (test code = 30858-1) [facility] WITH [id number] 05:01:14 Test Item Value Reference Range Interpretation Comments WBC (test code = See_Comment H [Automated 6690-2) message] The sy stem which generated this result transmitted reference range : 4.20 - 10.70 10*3/?L. The reference range was not used to interpret this result as normal/abnormal . RBC (test code = See_Comment [Automated 789-8) message] The sy stem which generated this result transmitted reference range : 4.26 - 5.52 10*6/?L. The reference range was not used to interpret this result as normal/abnormal . HGB (test code = 15.3 g/dL 12.2-16.4 718-7) HCT (test code = 44.9 % 38.4-49.3 4544-3) MCV (test code = 91.4 fL 81.7-95.6 787-2) MCH (test code = 31.2 pg 26.1-32.7 785-6) MCHC (test code = 34.1 g/dL 31.2-35.0 786-4) RDW-SD (test code = 49.1 fL 38.5-51.6 98410-1) RDW-CV (test code = 14.6 % 12.1-15.4 788-0) PLT (test code = See_Comment H [Automated 777-3) message] The sy stem which generated this result transmitted reference range : 150 - 328 10*3/ ?L. The reference r kevin was not used to interpret this result as normal/abnormal . MPV (test code = 10.0 fL 9.8-13.0 77687-7) NRBC/100 WBC (test See_Comment [Automat ed code = 1642385310) message] The system which generated this result transmitted reference range : 0.0 - 10.0 /100 WBCs. The refer ence range was not u sed to interpret th is result as normal/abnormal . NRBC x10^3 (test code <0.01 See_Comment [Auto mated = 8253416052) message] The s ystem which generated this result transmitted reference range : 10*3/?L. The reference range was not used to interpret this result as normal/abnormal . GRAN MAT (NEUT) % 82.3 % (test code = 770-8) IMM GRAN % (test code 1.70 % = 7150316961) LYMPH % (test code = 5.7 % 736-9) MONO % (test code = 9.5 % 5905-5) EOS % (test code = 0.3 % 713-8) BASO % (test code = 0.5 % 706-2) GRAN MAT x10^3(ANC) 9.76 10*3/uL 1.99-6.95 H (test code = 6641899590) IMM GRAN x10^3 (test 0.20 10*3/uL 0.00-0.06 H code = 0162575967) LYMPH x10^3 (test code 0.67 10*3/uL 1.09-3.23 L = 731-0) MONO x10^3 (test code 1.12 10*3/uL 0.36-1.02 H = 742-7) EOS x10^3 (test code = 0.04 10*3/uL 0.06-0.53 L 711-2) BASO x10^3 (test code 0.06 10*3/uL 0.01-0.09 = 704-7) Lab Interpretation Abnormal (test code = 62445-3) [facility]. METABOLIC PANEL (45669)2021-01-21 09:24:25 Test Item Value Reference Range Interpretation Comments NA (test code = 130 mmol/L 135-145 L 4537963931) K (test code = 3.2 mmol/L 3.5-5.0 L 8901738359) CL (test code = 96 mmol/L 98-108 L 5594477270) CO2 TOTAL (test code = 26 mmol/L 23-31 8215999209) AGAP (test code = 2-16 1067002283) BUN (test code = 11 mg/dL 7-23 5511193739) GLUCOSE (test code = 110 mg/dL 70-110 0722733421) CREATININE (test code = 0.54 mg/dL 0.60-1.25 L 5934130779) TOTAL BILI (test code = 1.8 mg/dL 0.1-1.1 H 2485603113) CALCIUM (test code = 9.6 mg/dL 8.6-10.6 6752393601) T PROTEIN (test code = 6.3 g/dL 6.3-8.2 0801577337) ALBUMIN (test code = 3.6 g/dL 3.5-5.0 3931234741) ALK PHOS (test code = 218 U/L 34-122 H 2105036854) ALTv (test code = 19 U/L 5-50 1742-6) AST(SGOT) (test code = 25 U/L 13-40 1509684903) eGFR (test code = mL/min/1.73m2 4501888702) BERYL (test code = BERYL) Association of Glomerular Filtration Rate (GFR) and Staging of Kidney Disease* + --+ --+ ------+| GFR (mL/min/1.73 m2) ?| With Kidney Damage ?| ?Without Kidney Damage+ --------+ --------+ +| ?>90 ?| ?Stage one ?| ? Normal ?+ ---+ ---+ -------+| ?60-89 ?| ?Stage two ?| ? Decreased GFR ? + --+ --+ ------+| ?30-59 ?| ?Stage three ?| ? Stage three ? + --+ --+ ------+| ?15-29 ?| ?Stage four ? | ? Stage four ?+ ---+ ---+ -------+| ?<15 (or dialysis) ? ?| ?Stage five ? | ? Stage five ?+ ---+ ---+ -------+ *Each stage assumes the associated GFR level has been in effect for at least three months. ?Stages 1 to 5, with or without kidney disease, indicate chronic kidney disease. Notes: Determination of stages one and two (with eGFR >59mL/min/1.73 m2) requires estimation of kidney damage for at least three months as defined by structural or functional abnormalities of the kidney, manifested by either:Pathological abnormalities or Markers of kidney damage (including abnormalities in the composition of the blood or urine or abnormalities in imaging tests). Lab Interpretation Abnormal (test code = 78520-9) [facility] 09:24[facility]04 Test Item Value Reference Range Interpretation Comments LIPASE (test code = 6998677912) 513 U/L 0-220 H Lab Interpretation (test code = Abnormal 27677-4) [facility] WITH [id number] 09:01:39 Test Item Value Reference Range Interpretation Comments WBC (test code = See_Comment H [Automated 6690-2) message] The system which generated this result transmit meng reference range : 4.20 - 10.70 10*3/?L. The reference range was not used to interpret this result as normal/abnormal . RBC (test code = See_Comment [Automated 789-8) message] The system which generated this result transmit meng reference range : 4.26 - 5.52 10*6/?L. The reference range was not used to interpret this result as normal/abnormal . HGB (test code = 13.4 g/dL 12.2-16.4 718-7) HCT (test code = 38.9 % 38.4-49.3 4544-3) MCV (test code = 91.1 fL 81.7-95.6 787-2) MCH (test code = 31.4 pg 26.1-32.7 785-6) MCHC (test code = 34.4 g/dL 31.2-35.0 786-4) RDW-SD (test code = 49.3 fL 38.5-51.6 14498-9) RDW-CV (test code = 15.0 % 12.1-15.4 788-0) PLT (test code = See_Comment [Automated 777-3) message] The system which generated this result transmit meng reference range : 150 - 328 10*3/ ?L. The reference range was not u sed to interpret th is result as normal/abnormal . MPV (test code = 9.9 fL 9.8-13.0 58864-6) NRBC/100 WBC (test See_Comment [Automat ed code = 3551892946) message] The system which generated this result transmit meng reference range : 0.0 - 10.0 /100 WBCs. The reference range was not used to interpret this result as normal/abnormal . NRBC x10^3 (test code <0.01 See_Comment [Auto mated = 1898906026) message] The system which generated this result transmit meng reference range : 10*3/?L. The reference range was not used to interpret this result as normal/abnormal . GRAN MAT (NEUT) % 84.3 % (test code = 770-8) IMM GRAN % (test code 0.60 % = 8074471694) LYMPH % (test code = 6.4 % 736-9) MONO % (test code = 7.9 % 5905-5) EOS % (test code = 0.6 % 713-8) BASO % (test code = 0.2 % 706-2) GRAN MAT x10^3(ANC) 10.50 10*3/uL 1.99-6.95 H (test code = 6136653927) IMM GRAN x10^3 (test 0.08 10*3/uL 0.00-0.06 H code = 6178312863) LYMPH x10^3 (test code 0.80 10*3/uL 1.09-3.23 L = 731-0) MONO x10^3 (test code 0.99 10*3/uL 0.36-1.02 = 742-7) EOS x10^3 (test code = 0.08 10*3/uL 0.06-0.53 711-2) BASO x10^3 (test code <0.03 0.01-0.09 = 704-7) Lab Interpretation Abnormal (test code = 17735-4) [facility]37729[facility] (ALB,T.PRO,BILI T,BU/BC,ALT,AST,ALK PHOS)2021-01-06 08:57:24 Test Item Value Reference Range Interpretation Comments TOTAL BILI (test code = 2153251357) 0.5 mg/dL 0.1-1.1 BILI UNCON (test code = 5118226854) 0.3 mg/dL 0.1-1.1 BILI CONJ (test code = 3128689897) 0.0 mg/dL 0.0-0.3 T PROTEIN (test code = 8504705202) 5.0 g/dL 6.3-8.2 L ALBUMIN (test code = 0267321591) 2.5 g/dL 3.5-5.0 L ALK PHOS (test code = 1765193702) 284 U/L 34-122 H ALTv (test code = 1742-6) 31 U/L 5-50 AST(SGOT) (test code = 3139553594) 32 U/L 13-40 Lab Interpretation (test code = Abnormal 81427-7) [facility] (34504[facility] (ALB,T.PRO,BILI T,BU/BC,ALT,AST,ALK PHOS)2021-01-06 08:57:24 Test Item Value Reference Range Interpretation Comments TOTAL BILI (test code = 2569781909) 0.5 mg/dL 0.1-1.1 BILI UNCON (test code = 3381890483) 0.3 mg/dL 0.1-1.1 BILI CONJ (test code = 1880702166) 0.0 mg/dL 0.0-0.3 T PROTEIN (test code = 4501236584) 5.0 g/dL 6.3-8.2 L ALBUMIN (test code = 2677345076) 2.5 g/dL 3.5-5.0 L ALK PHOS (test code = 0815187303) 284 U/L 34-122 H ALTv (test code = 1742-6) 31 U/L 5-50 AST(SGOT) (test code = 4843214895) 32 U/L 13-40 Lab Interpretation (test code = Abnormal 65302-8) [facility] (NA, K, CL, CO2, GLUCOSE, BUN, CREATININE, CA)2021-01-06 08:57:23 Test Item Value Reference Range Interpretation Comments NA (test code = 137 mmol/L 135-145 2948379491) K (test code = 3.6 mmol/L 3.5-5.0 6401959424) CL (test code = 109 mmol/L 98-108 H 2680376021) CO2 TOTAL (test code = 22 mmol/L 23-31 L 6526176008) AGAP (test code = 2-16 5263629875) BUN (test code = 2 mg/dL 7-23 L 9489396054) GLUCOSE (test code = 80 mg/dL 70-110 9204722300) CREATININE (test code = 0.40 mg/dL 0.60-1.25 L 3231322264) CALCIUM (test code = 8.1 mg/dL 8.6-10.6 L 3082159385) eGFR (test code = mL/min/1.73m2 4823285219) BERYL (test code = BERYL) Association of Glomerular Filtration Rate (GFR) and Staging of Kidney Disease* + --+ --+ ------+| GFR (mL/min/1.73 m2) ?| With Kidney Damage ?| ?Without Kidney Damage+ --------+ --------+ +| ?>90 ?| ?Stage one ?| ? Normal ?+ ---+ ---+ -------+| ?60-89 ?| ?Stage two ?| ? Decreased GFR ? + --+ --+ ------+| ?30-59 ?| ?Stage three ?| ? Stage three ? + --+ --+ ------+| ?15-29 ?| ?Stage four ? | ? Stage four ?+ ---+ ---+ -------+| ?<15 (or dialysis) ? ?| ?Stage five ? | ? Stage five ?+ ---+ ---+ -------+ *Each stage assumes the associated GFR level has been in effect for at least three months. ?Stages 1 to 5, with or without kidney disease, indicate chronic kidney disease. Notes: Determination of stages one and two (with eGFR >59mL/min/1.73 m2) requires estimation of kidney damage for at least three months as defined by structural or functional abnormalities of the kidney, manifested by either:Pathological abnormalities or Markers of kidney damage (including abnormalities in the composition of the blood or urine or abnormalities in imaging tests). Lab Interpretation Abnormal (test code = 66917-1) [facility] METABOLIC PANEL (NA, K, CL, CO2, GLUCOSE, BUN, CREATININE, CA)2021-01-06 08:57:23 Test Item Value Reference Range Interpretation Comments NA (test code = 137 mmol/L 135-145 3596174565) K (test code = 3.6 mmol/L 3.5-5.0 5461051076) CL (test code = 109 mmol/L 98-108 H 1602247878) CO2 TOTAL (test code = 22 mmol/L 23-31 L 6245818827) AGAP (test code = 2-16 5202272929) BUN (test code = 2 mg/dL 7-23 L 6803312218) GLUCOSE (test code = 80 mg/dL 70-110 8244273080) CREATININE (test code = 0.40 mg/dL 0.60-1.25 L 7072847207) CALCIUM (test code = 8.1 mg/dL 8.6-10.6 L 1311735447) eGFR (test code = mL/min/1.73m2 8241294377) BERYL (test code = BERYL) Association of Glomerular Filtration Rate (GFR) and Staging of Kidney Disease* + --+ --+ ------+| GFR (mL/min/1.73 m2) ?| With Kidney Damage ?| ?Without Kidney Damage+ --------+ --------+ +| ?>90 ?| ?Stage one ?| ? Normal ?+ ---+ ---+ -------+| ?60-89 ?| ?Stage two ?| ? Decreased GFR ? + --+ --+ ------+| ?30-59 ?| ?Stage three ?| ? Stage three ? + --+ --+ ------+| ?15-29 ?| ?Stage four ? | ? Stage four ?+ ---+ ---+ -------+| ?<15 (or dialysis) ? ?| ?Stage five ? | ? Stage five ?+ ---+ ---+ -------+ *Each stage assumes the associated GFR level has been in effect for at least three months. ?Stages 1 to 5, with or without kidney disease, indicate chronic kidney disease. Notes: Determination of stages one and two (with eGFR >59mL/min/1.73 m2) requires estimation of kidney damage for at least three months as defined by structural or functional abnormalities of the kidney, manifested by either:Pathological abnormalities or Markers of kidney damage (including abnormalities in the composition of the blood or urine or abnormalities in imaging tests). Lab Interpretation Abnormal (test code = 53709-7) [facility] with [id number] 08:34:59 Test Item Value Reference Range Interpretation Comments WBC (test code = See_Comment [Automated 9810-2) message] The sy stem which generated this result transmitted reference range : 4.20 - 10.70 10*3/?L. The reference range was not used to interpret this result as normal/abnormal . RBC (test code = See_Comment L [Automated 259-8) message] The sy stem which generated this result transmitted reference range : 4.26 - 5.52 10*6/?L. The reference range was not used to interpret this result as normal/abnormal . HGB (test code = 12.4 g/dL 12.2-16.4 718-7) HCT (test code = 37.8 % 38.4-49.3 L 4544-3) MCV (test code = 97.2 fL 81.7-95.6 H 787-2) MCH (test code = 31.9 pg 26.1-32.7 785-6) MCHC (test code = 32.8 g/dL 31.2-35.0 786-4) RDW-SD (test code = 54.4 fL 38.5-51.6 H 80042-1) RDW-CV (test code = 15.4 % 12.1-15.4 788-0) PLT (test code = See_Comment [Automated 777-3) message] The sy stem which generated this result transmitted reference range : 150 - 328 10*3/ ?L. The reference r kevin was not used to interpret this result as normal/abnormal . MPV (test code = 10.4 fL 9.8-13.0 10011-0) NRBC/100 WBC (test See_Comment [Automat ed code = 2514536313) message] The system which generated this result transmitted reference range : 0.0 - 10.0 /100 WBCs. The refer ence range was not u sed to interpret th is result as normal/abnormal . NRBC x10^3 (test code <0.01 See_Comment [Auto mated = 7331125093) message] The s ystem which generated this result transmitted reference range : 10*3/?L. The reference range was not used to interpret this result as normal/abnormal . GRAN MAT (NEUT) % 72.5 % (test code = 770-8) IMM GRAN % (test code 1.70 % = 1418513755) LYMPH % (test code = 11.6 % 736-9) MONO % (test code = 9.6 % 5905-5) EOS % (test code = 3.6 % 713-8) BASO % (test code = 1.0 % 706-2) GRAN MAT x10^3(ANC) 5.05 10*3/uL 1.99-6.95 (test code = 0244574999) IMM GRAN x10^3 (test 0.12 10*3/uL 0.00-0.06 H code = 6220339719) LYMPH x10^3 (test code 0.81 10*3/uL 1.09-3.23 L = 731-0) MONO x10^3 (test code 0.67 10*3/uL 0.36-1.02 = 742-7) EOS x10^3 (test code = 0.25 10*3/uL 0.06-0.53 711-2) BASO x10^3 (test code 0.07 10*3/uL 0.01-0.09 = 704-7) Lab Interpretation Abnormal (test code = 13272-0) [facility] with [id number] 08:34:59 Test Item Value Reference Range Interpretation Comments WBC (test code = See_Comment [Automated 6690-2) message] The sy stem which generated this result transmitted reference range : 4.20 - 10.70 10*3/?L. The reference range was not used to interpret this result as normal/abnormal . RBC (test code = See_Comment L [Automated 789-8) message] The sy stem which generated this result transmitted reference range : 4.26 - 5.52 10*6/?L. The reference range was not used to interpret this result as normal/abnormal . HGB (test code = 12.4 g/dL 12.2-16.4 718-7) HCT (test code = 37.8 % 38.4-49.3 L 4544-3) MCV (test code = 97.2 fL 81.7-95.6 H 787-2) MCH (test code = 31.9 pg 26.1-32.7 785-6) MCHC (test code = 32.8 g/dL 31.2-35.0 786-4) RDW-SD (test code = 54.4 fL 38.5-51.6 H 86418-9) RDW-CV (test code = 15.4 % 12.1-15.4 788-0) PLT (test code = See_Comment [Automated 777-3) message] The sy stem which generated this result transmitted reference range : 150 - 328 10*3/ ?L. The reference r kevin was not used to interpret this result as normal/abnormal . MPV (test code = 10.4 fL 9.8-13.0 77244-7) NRBC/100 WBC (test See_Comment [Automat ed code = 9090844222) message] The system which generated this result transmitted reference range : 0.0 - 10.0 /100 WBCs. The refer ence range was not u sed to interpret th is result as normal/abnormal . NRBC x10^3 (test code <0.01 See_Comment [Auto mated = 2365433559) message] The s ystem which generated this result transmitted reference range : 10*3/?L. The reference range was not used to interpret this result as normal/abnormal . GRAN MAT (NEUT) % 72.5 % (test code = 770-8) IMM GRAN % (test code 1.70 % = 9937139354) LYMPH % (test code = 11.6 % 736-9) MONO % (test code = 9.6 % 5905-5) EOS % (test code = 3.6 % 713-8) BASO % (test code = 1.0 % 706-2) GRAN MAT x10^3(ANC) 5.05 10*3/uL 1.99-6.95 (test code = 7847647391) IMM GRAN x10^3 (test 0.12 10*3/uL 0.00-0.06 H code = 2459841130) LYMPH x10^3 (test code 0.81 10*3/uL 1.09-3.23 L = 731-0) MONO x10^3 (test code 0.67 10*3/uL 0.36-1.02 = 742-7) EOS x10^3 (test code = 0.25 10*3/uL 0.06-0.53 711-2) BASO x10^3 (test code 0.07 10*3/uL 0.01-0.09 = 704-7) Lab Interpretation Abnormal (test code = 61570-4) [facility] Test Item Value Reference Range Interpretation Comments LIPASE (test code = [id number]) 690 U/L 0-220 H Lab Interpretation (test code = Abnormal 58865-8) [facility] 12:08:24 Test Item Value Reference Range Interpretation Comments LIPASE (test code = [id number]) 690 U/L 0-220 H Lab Interpretation (test code = Abnormal 09267-2) [facility] [id number] 11:58:41 Test Item Value Reference Range Interpretation Comments WBC (test code = See_Comment [Automated 6690-2) message] The sy stem which generated this result transmitted reference range : 4.20 - 10.70 10*3/?L. The reference range was not used to interpret this result as normal/abnormal . RBC (test code = See_Comment L [Automated 789-8) message] The sy stem which generated this result transmitted reference range : 4.26 - 5.52 10*6/?L. The reference range was not used to interpret this result as normal/abnormal . HGB (test code = 13.3 g/dL 12.2-16.4 718-7) HCT (test code = 39.9 % 38.4-49.3 4544-3) MCV (test code = 95.0 fL 81.7-95.6 787-2) MCH (test code = 31.7 pg 26.1-32.7 785-6) MCHC (test code = 33.3 g/dL 31.2-35.0 786-4) RDW-SD (test code = 53.1 fL 38.5-51.6 H 70113-5) RDW-CV (test code = 15.5 % 12.1-15.4 H 788-0) PLT (test code = See_Comment [Automated 777-3) message] The sy stem which generated this result transmitted reference range : 150 - 328 10*3/ ?L. The reference r kevin was not used to interpret this result as normal/abnormal . MPV (test code = 9.8 fL 9.8-13.0 57373-9) NRBC/100 WBC (test See_Comment [Automat ed code = 9032268331) message] The system which generated this result transmitted reference range : 0.0 - 10.0 /100 WBCs. The refer ence range was not u sed to interpret th is result as normal/abnormal . NRBC x10^3 (test code <0.01 See_Comment [Auto mated = 4264841180) message] The s ystem which generated this result transmitted reference range : 10*3/?L. The reference range was not used to interpret this result as normal/abnormal . GRAN MAT (NEUT) % 75.3 % (test code = 770-8) IMM GRAN % (test code 1.60 % = 6391652895) LYMPH % (test code = 9.4 % 736-9) MONO % (test code = 10.0 % 5905-5) EOS % (test code = 2.7 % 713-8) BASO % (test code = 1.0 % 706-2) GRAN MAT x10^3(ANC) 7.65 10*3/uL 1.99-6.95 H (test code = 4595297286) IMM GRAN x10^3 (test 0.16 10*3/uL 0.00-0.06 H code = 0374786333) LYMPH x10^3 (test code 0.95 10*3/uL 1.09-3.23 L = 731-0) MONO x10^3 (test code 1.01 10*3/uL 0.36-1.02 = 742-7) EOS x10^3 (test code = 0.27 10*3/uL 0.06-0.53 711-2) BASO x10^3 (test code 0.10 10*3/uL 0.01-0.09 H = 704-7) Lab Interpretation Abnormal (test code = 16403-6) [facility] with [id number] 11:58:41 Test Item Value Reference Range Interpretation Comments WBC (test code = See_Comment [Automated 6690-2) message] The sy stem which generated this result transmitted reference range : 4.20 - 10.70 10*3/?L. The reference range was not used to interpret this result as normal/abnormal . RBC (test code = See_Comment L [Automated 789-8) message] The sy stem which generated this result transmitted reference range : 4.26 - 5.52 10*6/?L. The reference range was not used to interpret this result as normal/abnormal . HGB (test code = 13.3 g/dL 12.2-16.4 718-7) HCT (test code = 39.9 % 38.4-49.3 4544-3) MCV (test code = 95.0 fL 81.7-95.6 787-2) MCH (test code = 31.7 pg 26.1-32.7 785-6) MCHC (test code = 33.3 g/dL 31.2-35.0 786-4) RDW-SD (test code = 53.1 fL 38.5-51.6 H 23988-2) RDW-CV (test code = 15.5 % 12.1-15.4 H 788-0) PLT (test code = See_Comment [Automated 777-3) message] The sy stem which generated this result transmitted reference range : 150 - 328 10*3/ ?L. The reference r kevin was not used to interpret this result as normal/abnormal . MPV (test code = 9.8 fL 9.8-13.0 61778-5) NRBC/100 WBC (test See_Comment [Automat ed code = 6183894915) message] The system which generated this result transmitted reference range : 0.0 - 10.0 /100 WBCs. The refer ence range was not u sed to interpret th is result as normal/abnormal . NRBC x10^3 (test code <0.01 See_Comment [Auto mated = 5788870399) message] The s ystem which generated this result transmitted reference range : 10*3/?L. The reference range was not used to interpret this result as normal/abnormal . GRAN MAT (NEUT) % 75.3 % (test code = 770-8) IMM GRAN % (test code 1.60 % = 9978199822) LYMPH % (test code = 9.4 % 736-9) MONO % (test code = 10.0 % 5905-5) EOS % (test code = 2.7 % 713-8) BASO % (test code = 1.0 % 706-2) GRAN MAT x10^3(ANC) 7.65 10*3/uL 1.99-6.95 H (test code = 3068397783) IMM GRAN x10^3 (test 0.16 10*3/uL 0.00-0.06 H code = 5820486864) LYMPH x10^3 (test code 0.95 10*3/uL 1.09-3.23 L = 731-0) MONO x10^3 (test code 1.01 10*3/uL 0.36-1.02 = 742-7) EOS x10^3 (test code = 0.27 10*3/uL 0.06-0.53 711-2) BASO x10^3 (test code 0.10 10*3/uL 0.01-0.09 H = 704-7) Lab Interpretation Abnormal (test code = 17106-2) [facility] with [id number] 19:10:44 Test Item Value Reference Range Interpretation Comments WBC (test code = See_Comment H [Automated 3190-2) message] The system which generated this result transmit meng reference range : 4.20 - 10.70 10*3/?L. The reference range was not used to interpret this result as normal/abnormal . RBC (test code = See_Comment [Automated 789-8) message] The system which generated this result transmit meng reference range : 4.26 - 5.52 10*6/?L. The reference range was not used to interpret this result as normal/abnormal . HGB (test code = 16.6 g/dL 12.2-16.4 H 718-7) HCT (test code = 48.3 % 38.4-49.3 4544-3) MCV (test code = 92.0 fL 81.7-95.6 787-2) MCH (test code = 31.6 pg 26.1-32.7 785-6) MCHC (test code = 34.4 g/dL 31.2-35.0 786-4) RDW-SD (test code = 50.7 fL 38.5-51.6 15996-9) RDW-CV (test code = 15.0 % 12.1-15.4 788-0) PLT (test code = See_Comment H [Automated 777-3) message] The system which generated this result transmit meng reference range : 150 - 328 10*3/ ?L. The reference range was not u sed to interpret th is result as normal/abnormal . MPV (test code = 9.9 fL 9.8-13.0 86338-5) NRBC/100 WBC (test See_Comment [Automat ed code = 1873091447) message] The system which generated this result transmit meng reference range : 0.0 - 10.0 /100 WBCs. The reference range was not used to interpret this result as normal/abnormal . NRBC x10^3 (test code <0.01 See_Comment [Auto mated = 4347318609) message] The system which generated this result transmit meng reference range : 10*3/?L. The reference range was not used to interpret this result as normal/abnormal . GRAN MAT (NEUT) % 86.4 % (test code = 770-8) IMM GRAN % (test code 1.60 % = 5742615180) LYMPH % (test code = 5.3 % 736-9) MONO % (test code = 5.9 % 5905-5) EOS % (test code = 0.4 % 713-8) BASO % (test code = 0.4 % 706-2) GRAN MAT x10^3(ANC) 16.29 10*3/uL 1.99-6.95 H (test code = 7056340682) IMM GRAN x10^3 (test 0.30 10*3/uL 0.00-0.06 H code = 2974633699) LYMPH x10^3 (test code 1.00 10*3/uL 1.09-3.23 L = 731-0) MONO x10^3 (test code 1.12 10*3/uL 0.36-1.02 H = 742-7) EOS x10^3 (test code = 0.07 10*3/uL 0.06-0.53 711-2) BASO x10^3 (test code 0.08 10*3/uL 0.01-0.09 = 704-7) Lab Interpretation Abnormal (test code = 32440-6) [facility] [id number] 18:45:42 Test Item Value Reference Range Interpretation Comments NA (test code = 134 mmol/L 135-145 L 9733953883) K (test code = 3.8 mmol/L 3.5-5.0 3426553847) CL (test code = 104 mmol/L 98-108 4359355981) CO2 TOTAL (test code = 19 mmol/L 23-31 L 4377553507) AGAP (test code = 2-16 1790693445) BUN (test code = 5 mg/dL 7-23 L 1483236476) GLUCOSE (test code = 129 mg/dL 70-110 H 4053561696) CREATININE (test code = 0.53 mg/dL 0.60-1.25 L 6993618107) TOTAL BILI (test code = 1.1 mg/dL 0.1-1.9 4442533894) CALCIUM (test code = 9.7 mg/dL 8.6-10.6 2564972317) T PROTEIN (test code = 6.9 g/dL 6.3-8.2 1083923662) ALBUMIN (test code = 4.0 g/dL 3.5-5.0 7835514834) ALK PHOS (test code = 242 U/L 34-122 H 1951710022) ALTv (test code = 18 U/L 5-50 1742-6) AST(SGOT) (test code = 19 U/L 13-40 1822871947) eGFR (test code = mL/min/1.73m2 7354174137) BERYL (test code = BERYL) Association of Glomerular Filtration Rate (GFR) and Staging of Kidney Disease* + --+ --+ ------+| GFR (mL/min/1.73 m2) ?| With Kidney Damage ?| ?Without Kidney Damage+ --------+ --------+ +| ?>90 ?| ?Stage one ?| ? Normal ?+ ---+ ---+ -------+| ?60-89 ?| ?Stage two ?| ? Decreased GFR ? + --+ --+ ------+| ?30-59 ?| ?Stage three ?| ? Stage three ? + --+ --+ ------+| ?15-29 ?| ?Stage four ? | ? Stage four ?+ ---+ ---+ -------+| ?<15 (or dialysis) ? ?| ?Stage five ? | ? Stage five ?+ ---+ ---+ -------+ *Each stage assumes the associated GFR level has been in effect for at least three months. ?Stages 1 to 5, with or without kidney disease, indicate chronic kidney disease. Notes: Determination of stages one and two (with eGFR >59mL/min/1.73 m2) requires estimation of kidney damage for at least three months as defined by structural or functional abnormalities of the kidney, manifested by either:Pathological abnormalities or Markers of kidney damage (including abnormalities in the composition of the blood or urine or abnormalities in imaging tests). Lab Interpretation Abnormal (test code = 06070-5) [facility], [id number] 18:45:37 Test Item Value Reference Range Interpretation Comments LIPASE (test code = 2754146544) 1988 U/L 0-220 H Lab Interpretation (test code = Abnormal 44998-1) [facility] MET[facility]OLIC PANEL (33214)2020-12-22 12:18:55 Test Item Value Reference Range Interpretation Comments NA (test code = 133 mmol/L 135-145 L 3843425715) K (test code = 3.4 mmol/L 3.5-5.0 L 3602886052) CL (test code = 97 mmol/L 98-108 L 9002908344) CO2 TOTAL (test code = 32 mmol/L 23-31 H 7086597014) AGAP (test code = 2-16 9510040453) BUN (test code = 4 mg/dL 7-23 L 3076534907) GLUCOSE (test code = 94 mg/dL 70-110 1874349924) CREATININE (test code = 0.51 mg/dL 0.60-1.25 L 0505866781) TOTAL BILI (test code = 0.5 mg/dL 0.1-1.3 5347787937) CALCIUM (test code = 8.8 mg/dL 8.6-10.6 3977579214) T PROTEIN (test code = 6.4 g/dL 6.3-8.2 6135894809) ALBUMIN (test code = 3.2 g/dL 3.5-5.0 L 8808016426) ALK PHOS (test code = 157 U/L 34-122 H 3606306770) ALTv (test code = 26 U/L 5-50 1742-6) AST(SGOT) (test code = 28 U/L 13-40 3228785223) eGFR (test code = mL/min/1.73m2 0351915451) BERYL (test code = BERYL) Association of Glomerular Filtration Rate (GFR) and Staging of Kidney Disease* + --+ --+ ------+| GFR (mL/min/1.73 m2) ?| With Kidney Damage ?| ?Without Kidney Damage+ --------+ --------+ +| ?>90 ?| ?Stage one ?| ? Normal ?+ ---+ ---+ -------+| ?60-89 ?| ?Stage two ?| ? Decreased GFR ? + --+ --+ ------+| ?30-59 ?| ?Stage three ?| ? Stage three ? + --+ --+ ------+| ?15-29 ?| ?Stage four ? | ? Stage four ?+ ---+ ---+ -------+| ?<15 (or dialysis) ? ?| ?Stage five ? | ? Stage five ?+ ---+ ---+ -------+ *Each stage assumes the associated GFR level has been in effect for at least three months. ?Stages 1 to 5, with or without kidney disease, indicate chronic kidney disease. Notes: Determination of stages one and two (with eGFR >59mL/min/1.73 m2) requires estimation of kidney damage for at least three months as defined by structural or functional abnormalities of the kidney, manifested by either:Pathological abnormalities or Markers of kidney damage (including abnormalities in the composition of the blood or urine or abnormalities in imaging tests). Lab Interpretation Abnormal (test code = 76308-6) [facility] 12:18:34 Test Item Value Reference Range Interpretation Comments LIPASE (test code = 6229505441) 311 U/L 0-220 H Lab Interpretation (test code = Abnormal 75256-5) [facility] WITH [id number] 12:02:57 Test Item Value Reference Range Interpretation Comments WBC (test code = See_Comment H [Automated 6690-2) message] The sy stem which generated this result transmitted reference range : 4.20 - 10.70 10*3/?L. The reference range was not used to interpret this result as normal/abnormal . RBC (test code = See_Comment [Automated 789-8) message] The sy stem which generated this result transmitted reference range : 4.26 - 5.52 10*6/?L. The reference range was not used to interpret this result as normal/abnormal . HGB (test code = 13.5 g/dL 12.2-16.4 718-7) HCT (test code = 40.5 % 38.4-49.3 4544-3) MCV (test code = 94.2 fL 81.7-95.6 787-2) MCH (test code = 31.4 pg 26.1-32.7 785-6) MCHC (test code = 33.3 g/dL 31.2-35.0 786-4) RDW-SD (test code = 48.2 fL 38.5-51.6 70062-8) RDW-CV (test code = 14.0 % 12.1-15.4 788-0) PLT (test code = See_Comment H [Automated 777-3) message] The sy stem which generated this result transmitted reference range : 150 - 328 10*3/ ?L. The reference r kevin was not used to interpret this result as normal/abnormal . MPV (test code = 9.6 fL 9.8-13.0 L 78923-2) NRBC/100 WBC (test See_Comment [Automat ed code = 4877671027) message] The system which generated this result transmitted reference range : 0.0 - 10.0 /100 WBCs. The refer ence range was not u sed to interpret th is result as normal/abnormal . NRBC x10^3 (test code <0.01 See_Comment [Auto mated = 0550245799) message] The s ystem which generated this result transmitted reference range : 10*3/?L. The reference range was not used to interpret this result as normal/abnormal . GRAN MAT (NEUT) % 77.0 % (test code = 770-8) IMM GRAN % (test code 6.40 % = 9436231622) LYMPH % (test code = 6.6 % 736-9) MONO % (test code = 6.1 % 5905-5) EOS % (test code = 2.5 % 713-8) BASO % (test code = 1.4 % 706-2) GRAN MAT x10^3(ANC) 9.39 10*3/uL 1.99-6.95 H (test code = 1068273277) IMM GRAN x10^3 (test 0.78 10*3/uL 0.00-0.06 H code = 9169083759) LYMPH x10^3 (test code 0.81 10*3/uL 1.09-3.23 L = 731-0) MONO x10^3 (test code 0.75 10*3/uL 0.36-1.02 = 742-7) EOS x10^3 (test code = 0.31 10*3/uL 0.06-0.53 711-2) BASO x10^3 (test code 0.17 10*3/uL 0.01-0.09 H = 704-7) BANDS (test code = Increased A 5184961447) Lab Interpretation Abnormal (test code = 60377-7) [facility] METABOLIC PANEL (NA, K, CL, CO2, GLUCOSE, BUN, CREATININE, CA)2020-12-21 12:07:32 Test Item Value Reference Range Interpretation Comments NA (test code = 134 mmol/L 135-145 L 6262873363) K (test code = 3.5 mmol/L 3.5-5.0 8172832935) CL (test code = 99 mmol/L 98-108 4983759582) CO2 TOTAL (test code = 30 mmol/L 23-31 7505932435) AGAP (test code = 2-16 5964065549) BUN (test code = 4 mg/dL 7-23 L 2026633666) GLUCOSE (test code = 98 mg/dL 70-110 4938681221) CREATININE (test code = 0.44 mg/dL 0.60-1.25 L 5031795741) CALCIUM (test code = 8.6 mg/dL 8.6-10.6 1937774609) eGFR (test code = mL/min/1.73m2 5375223735) BERYL (test code = BERYL) Association of Glomerular Filtration Rate (GFR) and Staging of Kidney Disease* + --+ --+ ------+| GFR (mL/min/1.73 m2) ?| With Kidney Damage ?| ?Without Kidney Damage+ --------+ --------+ +| ?>90 ?| ?Stage one ?| ? Normal ?+ ---+ ---+ -------+| ?60-89 ?| ?Stage two ?| ? Decreased GFR ? + --+ --+ ------+| ?30-59 ?| ?Stage three ?| ? Stage three ? + --+ --+ ------+| ?15-29 ?| ?Stage four ? | ? Stage four ?+ ---+ ---+ -------+| ?<15 (or dialysis) ? ?| ?Stage five ? | ? Stage five ?+ ---+ ---+ -------+ *Each stage assumes the associated GFR level has been in effect for at least three months. ?Stages 1 to 5, with or without kidney disease, indicate chronic kidney disease. Notes: Determination of stages one and two (with eGFR >59mL/min/1.73 m2) requires estimation of kidney damage for at least three months as defined by structural or functional abnormalities of the kidney, manifested by either:Pathological abnormalities or Markers of kidney damage (including abnormalities in the composition of the blood or urine or abnormalities in imaging tests). Lab Interpretation Abnormal (test code = 46906-2) [facility] 12:07:17 Test Item Value Reference Range Interpretation Comments LIPASE (test code = 6906849723) 500 U/L 0-220 H Lab Interpretation (test code = Abnormal 90079-9) [facility] WITH [id number] 11:52:38 Test Item Value Reference Range Interpretation Comments WBC (test code = See_Comment H [Automated 6990-2) message] The system which generated this result transmit meng reference range : 4.20 - 10.70 10*3/?L. The reference range was not used to interpret this result as normal/abnormal . RBC (test code = See_Comment L [Automated 466-8) message] The system which generated this result transmit meng reference range : 4.26 - 5.52 10*6/?L. The reference range was not used to interpret this result as normal/abnormal . HGB (test code = 12.6 g/dL 12.2-16.4 718-7) HCT (test code = 37.8 % 38.4-49.3 L 4544-3) MCV (test code = 94.7 fL 81.7-95.6 787-2) MCH (test code = 31.6 pg 26.1-32.7 785-6) MCHC (test code = 33.3 g/dL 31.2-35.0 786-4) RDW-SD (test code = 48.9 fL 38.5-51.6 87205-5) RDW-CV (test code = 14.0 % 12.1-15.4 788-0) PLT (test code = See_Comment H [Automated 777-3) message] The system which generated this result transmit meng reference range : 150 - 328 10*3/ ?L. The reference range was not u sed to interpret th is result as normal/abnormal . MPV (test code = 9.9 fL 9.8-13.0 52326-3) NRBC/100 WBC (test See_Comment [Automat ed code = 2308696586) message] The system which generated this result transmit megn reference range : 0.0 - 10.0 /100 WBCs. The reference range was not used to interpret this result as normal/abnormal . NRBC x10^3 (test code <0.01 See_Comment [Auto mated = 0420244965) message] The system which generated this result transmit meng reference range : 10*3/?L. The reference range was not used to interpret this result as normal/abnormal . GRAN MAT (NEUT) % 82.8 % (test code = 770-8) IMM GRAN % (test code 4.50 % = 2695264560) LYMPH % (test code = 4.9 % 736-9) MONO % (test code = 5.6 % 5905-5) EOS % (test code = 1.3 % 713-8) BASO % (test code = 0.9 % 706-2) GRAN MAT x10^3(ANC) 12.32 10*3/uL 1.99-6.95 H (test code = 1401159048) IMM GRAN x10^3 (test 0.67 10*3/uL 0.00-0.06 H code = 5332938987) LYMPH x10^3 (test code 0.73 10*3/uL 1.09-3.23 L = 731-0) MONO x10^3 (test code 0.84 10*3/uL 0.36-1.02 = 742-7) EOS x10^3 (test code = 0.20 10*3/uL 0.06-0.53 711-2) BASO x10^3 (test code 0.13 10*3/uL 0.01-0.09 H = 704-7) BANDS (test code = Increased A 0645452510) Lab Interpretation Abnormal (test code = 57113-6) [facility] CULTURE [id number] 17:01:19 Test Item Value Reference Range Interpretation Comments Blood Culture-Aerobic No organisms No growth Previo us (test code = 72646-9) isolated prelim inary verified result was Culture In Progress on 12/15/2020 at 15 01 CDTPrevious preliminary verified result was No growth a t 24 hours on 12/16/2020 at 12 01 CDTPrevious preliminary verified result was No growth a t 48 hours on 12/17/2020 at 12 01 CDTPrevious preliminary verified result was No growth a t 72 hours on 12/18/2020 at 12 01 CDT Blood No organisms No growth Previous Culture-Anaerobic isolated preliminar y (test code = 60888-5) verifi ed result was Culture In Progress on 12/15/2020 at 15 01 CDTPrevious preliminary verified result was No growth a t 24 hours on 12/16/2020 at 12 01 CDTPrevious preliminary verified result was No growth a t 48 hours on 12/17/2020 at 12 01 CDTPrevious preliminary verified result was No growth a t 72 hours on 12/18/2020 at 12 01 CDT Lab Interpretation Normal (test code = 68409-9) [facility] CULTURE [id number] 17:01:18 Test Item Value Reference Range Interpretation Comments Blood Culture-Aerobic No organisms No growth Previo us (test code = 87866-0) isolated prelim inary verified result was Culture In Progress on 12/15/2020 at 15 01 CDTPrevious preliminary verified result was No growth a t 24 hours on 12/16/2020 at 12 01 CDTPrevious preliminary verified result was No growth a t 48 hours on 12/17/2020 at 12 01 CDTPrevious preliminary verified result was No growth a t 72 hours on 12/18/2020 at 12 01 CDT Blood No organisms No growth Previous Culture-Anaerobic isolated preliminar y (test code = 39227-8) verifi ed result was Culture In Progress on 12/15/2020 at 15 01 CDTPrevious preliminary verified result was No growth a t 24 hours on 12/16/2020 at 12 01 CDTPrevious preliminary verified result was No growth a t 48 hours on 12/17/2020 at 12 01 CDTPrevious preliminary verified result was No growth a t 72 hours on 12/18/2020 at 12 01 CDT Lab Interpretation Normal (test code = 66881-7) [facility] WITH [id number] 11:16:42 Test Item Value Reference Range Interpretation Comments WBC (test code = See_Comment H [Automated 6390-2) message] The system which generated this result transmit meng reference range : 4.20 - 10.70 10*3/?L. The reference range was not used to interpret this result as normal/abnormal . RBC (test code = See_Comment L [Automated 789-8) message] The system which generated this result transmit meng reference range : 4.26 - 5.52 10*6/?L. The reference range was not used to interpret this result as normal/abnormal . HGB (test code = 12.9 g/dL 12.2-16.4 718-7) HCT (test code = 38.6 % 38.4-49.3 4544-3) MCV (test code = 94.4 fL 81.7-95.6 787-2) MCH (test code = 31.5 pg 26.1-32.7 785-6) MCHC (test code = 33.4 g/dL 31.2-35.0 786-4) RDW-SD (test code = 48.8 fL 38.5-51.6 37339-4) RDW-CV (test code = 14.1 % 12.1-15.4 788-0) PLT (test code = See_Comment H [Automated 777-3) message] The system which generated this result transmit meng reference range : 150 - 328 10*3/ ?L. The reference range was not u sed to interpret th is result as normal/abnormal . MPV (test code = 10.2 fL 9.8-13.0 25501-1) NRBC/100 WBC (test See_Comment [Automat ed code = 2743864573) message] The system which generated this result transmit meng reference range : 0.0 - 10.0 /100 WBCs. The reference range was not used to interpret this result as normal/abnormal . NRBC x10^3 (test code <0.01 See_Comment [Auto mated = 1987104400) message] The system which generated this result transmit meng reference range : 10*3/?L. The reference range was not used to interpret this result as normal/abnormal . GRAN MAT (NEUT) % 82.7 % (test code = 770-8) IMM GRAN % (test code 4.00 % = 2074225710) LYMPH % (test code = 4.6 % 736-9) MONO % (test code = 6.5 % 5905-5) EOS % (test code = 1.4 % 713-8) BASO % (test code = 0.8 % 706-2) GRAN MAT x10^3(ANC) 12.18 10*3/uL 1.99-6.95 H (test code = 4528542855) IMM GRAN x10^3 (test 0.59 10*3/uL 0.00-0.06 H code = 2004860371) LYMPH x10^3 (test code 0.67 10*3/uL 1.09-3.23 L = 731-0) MONO x10^3 (test code 0.96 10*3/uL 0.36-1.02 = 742-7) EOS x10^3 (test code = 0.20 10*3/uL 0.06-0.53 711-2) BASO x10^3 (test code 0.12 10*3/uL 0.01-0.09 H = 704-7) Lab Interpretation Abnormal (test code = 95361-4) [facility] METABOLIC PANEL (NA, K, CL, CO2, GLUCOSE, BUN, CREATININE, CA)2020-12-20 10:27:56 Test Item Value Reference Range Interpretation Comments NA (test code = 134 mmol/L 135-145 L 0356666609) K (test code = 3.5 mmol/L 3.5-5.0 8764467556) CL (test code = 96 mmol/L 98-108 L 5716298065) CO2 TOTAL (test code = 31 mmol/L 23-31 6898175658) AGAP (test code = 2-16 9806100257) BUN (test code = 4 mg/dL 7-23 L 6385552302) GLUCOSE (test code = 95 mg/dL 70-110 2067381224) CREATININE (test code = 0.46 mg/dL 0.60-1.25 L 6163016425) CALCIUM (test code = 8.5 mg/dL 8.6-10.6 L 5971673464) eGFR (test code = mL/min/1.73m2 [id number]) BERYL (test code = BERYL) Association of Glomerular Filtration Rate (GFR) and Staging of Kidney Disease* + --+ --+ ------+| GFR (mL/min/1.73 m2) ?| With Kidney Damage ?| ?Without Kidney Damage+ --------+ --------+ +| ?>90 ?| ?Stage one ?| ? Normal ?+ ---+ ---+ -------+| ?60-89 ?| ?Stage two ?| ? Decreased GFR ? + --+ --+ ------+| ?30-59 ?| ?Stage three ?| ? Stage three ? + --+ --+ ------+| ?15-29 ?| ?Stage four ? | ? Stage four ?+ ---+ ---+ -------+| ?<15 (or dialysis) ? ?| ?Stage five ? | ? Stage five ?+ ---+ ---+ -------+ *Each stage assumes the associated GFR level has been in effect for at least three months. ?Stages 1 to 5, with or without kidney disease, indicate chronic kidney disease. Notes: Determination of stages one and two (with eGFR >59mL/min/1.73 m2) requires estimation of kidney damage for at least three months as defined by structural or functional abnormalities of the kidney, manifested by either:Pathological abnormalities or Markers of kidney damage (including abnormalities in the composition of the blood or urine or abnormalities in imaging tests). Lab Interpretation Abnormal (test code = 67676-7) [facility] WITH [id number] 16:52:11 Test Item Value Reference Range Interpretation Comments WBC (test code = See_Comment H [Automated 6690-2) message] The system which generated this result transmit meng reference range : 4.20 - 10.70 10*3/?L. The reference range was not used to interpret this result as normal/abnormal . RBC (test code = See_Comment L [Automated 789-8) message] The system which generated this result transmit meng reference range : 4.26 - 5.52 10*6/?L. The reference range was not used to interpret this result as normal/abnormal . HGB (test code = 13.0 g/dL 12.2-16.4 718-7) HCT (test code = 37.8 % 38.4-49.3 L 4544-3) MCV (test code = 93.6 fL 81.7-95.6 787-2) MCH (test code = 32.2 pg 26.1-32.7 785-6) MCHC (test code = 34.4 g/dL 31.2-35.0 786-4) RDW-SD (test code = 47.8 fL 38.5-51.6 43973-8) RDW-CV (test code = 13.9 % 12.1-15.4 788-0) PLT (test code = See_Comment [Automated 777-3) message] The system which generated this result transmit meng reference range : 150 - 328 10*3/ ?L. The reference range was not u sed to interpret th is result as normal/abnormal . MPV (test code = 10.0 fL 9.8-13.0 01676-6) NRBC/100 WBC (test See_Comment [Automat ed code = 2730401664) message] The system which generated this result transmit meng reference range : 0.0 - 10.0 /100 WBCs. The reference range was not used to interpret this result as normal/abnormal . NRBC x10^3 (test code <0.01 See_Comment [Auto mated = 5202984013) message] The system which generated this result transmit meng reference range : 10*3/?L. The reference range was not used to interpret this result as normal/abnormal . GRAN MAT (NEUT) % 87.4 % (test code = 770-8) IMM GRAN % (test code 3.10 % = 3954684028) LYMPH % (test code = 2.5 % 736-9) MONO % (test code = 5.9 % 5905-5) EOS % (test code = 0.6 % 713-8) BASO % (test code = 0.5 % 706-2) GRAN MAT x10^3(ANC) 18.63 10*3/uL 1.99-6.95 H (test code = 4771312185) IMM GRAN x10^3 (test 0.65 10*3/uL 0.00-0.06 H code = 2160091454) LYMPH x10^3 (test code 0.54 10*3/uL 1.09-3.23 L = 731-0) MONO x10^3 (test code 1.26 10*3/uL 0.36-1.02 H = 742-7) EOS x10^3 (test code = 0.12 10*3/uL 0.06-0.53 711-2) BASO x10^3 (test code 0.10 10*3/uL 0.01-0.09 H = 704-7) BANDS (test code = Increased A 5455488527) Lab Interpretation Abnormal (test code = 31625-7) [facility] METABOLIC PANEL (NA, K, CL, CO2, GLUCOSE, BUN, CREATININE, CA)2020-12-19 15:49:19 Test Item Value Reference Range Interpretation Comments NA (test code = 130 mmol/L 135-145 L 9895897180) K (test code = 3.2 mmol/L 3.5-5.0 L 2737979694) CL (test code = 94 mmol/L 98-108 L 5007116982) CO2 TOTAL (test code = 30 mmol/L 23-31 6612643022) AGAP (test code = 2-16 8040677459) BUN (test code = 4 mg/dL 7-23 L 8195238145) GLUCOSE (test code = 117 mg/dL 70-110 H 9723014555) CREATININE (test code = 0.35 mg/dL 0.60-1.25 L 3490090096) CALCIUM (test code = 8.4 mg/dL 8.6-10.6 L 6911625692) eGFR (test code = mL/min/1.73m2 8269959173) BERYL (test code = BERYL) Association of Glomerular Filtration Rate (GFR) and Staging of Kidney Disease* + --+ --+ ------+| GFR (mL/min/1.73 m2) ?| With Kidney Damage ?| ?Without Kidney Damage+ --------+ --------+ +| ?>90 ?| ?Stage one ?| ? Normal ?+ ---+ ---+ -------+| ?60-89 ?| ?Stage two ?| ? Decreased GFR ? + --+ --+ ------+| ?30-59 ?| ?Stage three ?| ? Stage three ? + --+ --+ ------+| ?15-29 ?| ?Stage four ? | ? Stage four ?+ ---+ ---+ -------+| ?<15 (or dialysis) ? ?| ?Stage five ? | ? Stage five ?+ ---+ ---+ -------+ *Each stage assumes the associated GFR level has been in effect for at least three months. ?Stages 1 to 5, with or without kidney disease, indicate chronic kidney disease. Notes: Determination of stages one and two (with eGFR >59mL/min/1.73 m2) requires estimation of kidney damage for at least three months as defined by structural or functional abnormalities of the kidney, manifested by either:Pathological abnormalities or Markers of kidney damage (including abnormalities in the composition of the blood or urine or abnormalities in imaging tests). Lab Interpretation Abnormal (test code = 10984-5) [facility] 16:55:17 Test Item Value Reference Range Interpretation Comments POCT GLU (test code = 6130195011) 104 mg/dL 70-110 Lab Interpretation (test code = Normal 50131-3) [facility] (ALB,T.PRO,BILI T,BU/BC,ALT,AST,ALK PHOS)2020-12-18 15:06:49 Test Item Value Reference Range Interpretation Comments TOTAL BILI (test code = 9398333647) 0.7 mg/dL 0.1-1.1 BILI UNCON (test code = 7995411247) 0.4 mg/dL 0.1-1.1 BILI CONJ (test code = 4030129627) 0.0 mg/dL 0.0-0.3 T PROTEIN (test code = 6025949219) 6.1 g/dL 6.3-8.2 L ALBUMIN (test code = 1545317167) 3.1 g/dL 3.5-5.0 L ALK PHOS (test code = 2050868246) 167 U/L 34-122 H ALTv (test code = 1742-6) 21 U/L 5-50 AST(SGOT) (test code = 3485285920) 40 U/L 13-40 Lab Interpretation (test code = Abnormal 78624-4) [facility] 15:06:49 Test Item Value Reference Range Interpretation Comments LIPASE (test code = 5517822288) 887 U/L 0-220 H Lab Interpretation (test code = Abnormal 62923-5) [facility]2020-12-18 12:51:53 Test Item Value Reference Range Interpretation Comments POCT GLU (test code = 6268305064) 92 mg/dL 70-110 Lab Interpretation (test code = Normal 54588-9) [facility] [id number] 09:07:06 Test Item Value Reference Range Interpretation Comments WBC (test code = See_Comment H Previous 6690-2) preliminary verified result was 29.84 10*3/ ?L on 12/18/2020 at 0403 CDT [Automated message] The system which generated this result transmit meng reference range : 4.20 - 10.70 10*3/?L. The reference range was not used to interpret this result as normal/abnormal . RBC (test code = See_Comment Previous 789-8) preliminary verified result was 4.25 10*6/? L on 12/18/2020 at 0403 CDT [Automated message] The system which generated this result transmit meng reference range : 4.26 - 5.52 10*6/?L. The reference range was not used to interpret this result as normal/abnormal . HGB (test code = 13.7 g/dL 12.2-16.4 Previous 718-7) preliminary verified result was 13.6 g/dL o n 12/18/2020 at 04 03 CDT HCT (test code = 39.5 % 38.4-49.3 Previous 4544-3) preliminary verified result was 39.4 % on 12/18/2020 at 04 03 CDT MCV (test code = 92.7 fL 81.7-95.6 787-2) MCH (test code = 32.2 pg 26.1-32.7 Previous 785-6) preliminary verified result was 32.0 pg on 12/18/2020 at 03 CDT MCHC (test code = 34.7 g/dL 31.2-35.0 Previous 786-4) preliminary verified result was 34.5 g/dL o n 12/18/2020 at 03 CDT RDW-SD (test code = 46.5 fL 38.5-51.6 Previous 87986-5) preliminary verified result was 46.4 fL on 12/18/2020 at 03 CDT RDW-CV (test code = 13.7 % 12.1-15.4 Previous 788-0) preliminary verified result was 13.6 % on 12/18/2020 at 03 CDT PLT (test code = See_Comment Previous 777-3) preliminary verified result was 266 10*3/?L on 12/18/2020 at 04 03 CDT [Automated message] The system which generated this result transmit meng reference range : 150 - 328 10*3/ ?L. The reference range was not u sed to interpret th is result as normal/abnormal . MPV (test code = 10.3 fL 9.8-13.0 Previous 44638-9) preliminary verified result was 10.2 fL on 12/18/2020 at 04 03 CDT NRBC/100 WBC (test See_Comment [Automat ed code = 0744506372) message] The system which generated this result transmit meng reference range : 0.0 - 10.0 /100 WBCs. The reference range was not used to interpret this result as normal/abnormal . NRBC x10^3 (test code <0.01 See_Comment [Auto mated = 1813384558) message] The system which generated this result transmit meng reference range : 10*3/?L. The reference range was not used to interpret this result as normal/abnormal . GRAN MAT (NEUT) % 88.3 % (test code = 770-8) IMM GRAN % (test code 4.70 % = 4299704627) LYMPH % (test code = 1.6 % 736-9) MONO % (test code = 5.0 % 5905-5) EOS % (test code = 0.0 % 713-8) BASO % (test code = 0.4 % 706-2) GRAN MAT x10^3(ANC) 26.15 10*3/uL 1.99-6.95 H (test code = 7989474348) IMM GRAN x10^3 (test 1.39 10*3/uL 0.00-0.06 H code = 7659044300) LYMPH x10^3 (test code 0.46 10*3/uL 1.09-3.23 L = 731-0) MONO x10^3 (test code 1.49 10*3/uL 0.36-1.02 H = 742-7) EOS x10^3 (test code = <0.03 0.06-0.53 L 711-2) BASO x10^3 (test code 0.12 10*3/uL 0.01-0.09 H = 704-7) Lab Interpretation Abnormal (test code = 81126-4) [facility] METABOLIC PANEL (NA, K, CL, CO2, GLUCOSE, BUN, CREATININE, CA)2020-12-18 09:03:43 Test Item Value Reference Range Interpretation Comments NA (test code = 131 mmol/L 135-145 L 7594723766) K (test code = 2.8 mmol/L 3.5-5.0 LL 3885054057) CL (test code = 93 mmol/L 98-108 L 0697040512) CO2 TOTAL (test code = 33 mmol/L 23-31 H 2495616330) AGAP (test code = 2-16 8451335147) BUN (test code = 3 mg/dL 7-23 L 1303878024) GLUCOSE (test code = 109 mg/dL 70-110 1200259677) CREATININE (test code = 0.38 mg/dL 0.60-1.25 L 4748676954) CALCIUM (test code = 8.8 mg/dL 8.6-10.6 0504809217) eGFR (test code = mL/min/1.73m2 3327803988) BERYL (test code = BERYL) Association of Glomerular Filtration Rate (GFR) and Staging of Kidney Disease* + --+ --+ ------+| GFR (mL/min/1.73 m2) ?| With Kidney Damage ?| ?Without Kidney Damage+ --------+ --------+ +| ?>90 ?| ?Stage one ?| ? Normal ?+ ---+ ---+ -------+| ?60-89 ?| ?Stage two ?| ? Decreased GFR ? + --+ --+ ------+| ?30-59 ?| ?Stage three ?| ? Stage three ? + --+ --+ ------+| ?15-29 ?| ?Stage four ? | ? Stage four ?+ ---+ ---+ -------+| ?<15 (or dialysis) ? ?| ?Stage five ? | ? Stage five ?+ ---+ ---+ -------+ *Each stage assumes the associated GFR level has been in effect for at least three months. ?Stages 1 to 5, with or without kidney disease, indicate chronic kidney disease. Notes: Determination of stages one and two (with eGFR >59mL/min/1.73 m2) requires estimation of kidney damage for at least three months as defined by structural or functional abnormalities of the kidney, manifested by either:Pathological abnormalities or Markers of kidney damage (including abnormalities in the composition of the blood or urine or abnormalities in imaging tests). Lab Interpretation Abnormal (test code = 32296-4) [facility] (NA, K, CL, CO2, GLUCOSE, BUN, CREATININE, CA)2020-12-17 11:48:09 Test Item Value Reference Range Interpretation Comments NA (test code = 132 mmol/L 135-145 L 1339422550) K (test code = 3.5 mmol/L 3.5-5.0 9541604790) CL (test code = 93 mmol/L 98-108 L 5505749407) CO2 TOTAL (test code = 32 mmol/L 23-31 H 2454159423) AGAP (test code = 2-16 3715079404) BUN (test code = 6 mg/dL 7-23 L 7938064251) GLUCOSE (test code = 72 mg/dL 70-110 8058926557) CREATININE (test code = 0.41 mg/dL 0.60-1.25 L 8875323855) CALCIUM (test code = 8.9 mg/dL 8.6-10.6 8322409263) eGFR (test code = mL/min/1.73m2 1548064235) BERYL (test code = BERYL) Association of Glomerular Filtration Rate (GFR) and Staging of Kidney Disease* + --+ --+ ------+| GFR (mL/min/1.73 m2) ?| With Kidney Damage ?| ?Without Kidney Damage+ --------+ --------+ +| ?>90 ?| ?Stage one ?| ? Normal ?+ ---+ ---+ -------+| ?60-89 ?| ?Stage two ?| ? Decreased GFR ? + --+ --+ ------+| ?30-59 ?| ?Stage three ?| ? Stage three ? + --+ --+ ------+| ?15-29 ?| ?Stage four ? | ? Stage four ?+ ---+ ---+ -------+| ?<15 (or dialysis) ? ?| ?Stage five ? | ? Stage five ?+ ---+ ---+ -------+ *Each stage assumes the associated GFR level has been in effect for at least three months. ?Stages 1 to 5, with or without kidney disease, indicate chronic kidney disease. Notes: Determination of stages one and two (with eGFR >59mL/min/1.73 m2) requires estimation of kidney damage for at least three months as defined by structural or functional abnormalities of the kidney, manifested by either:Pathological abnormalities or Markers of kidney damage (including abnormalities in the composition of the blood or urine or abnormalities in imaging tests). Lab Interpretation Abnormal (test code = 51127-3) [facility] WITH [id number] 11:48:04 Test Item Value Reference Range Interpretation Comments WBC (test code = See_Comment H [Automated 6690-2) message] The system which generated this result transmit meng reference range : 4.20 - 10.70 10*3/?L. The reference range was not used to interpret this result as normal/abnormal . RBC (test code = See_Comment L [Automated 789-8) message] The system which generated this result transmit meng reference range : 4.26 - 5.52 10*6/?L. The reference range was not used to interpret this result as normal/abnormal . HGB (test code = 13.0 g/dL 12.2-16.4 718-7) HCT (test code = 38.1 % 38.4-49.3 L 4544-3) MCV (test code = 95.0 fL 81.7-95.6 787-2) MCH (test code = 32.4 pg 26.1-32.7 785-6) MCHC (test code = 34.1 g/dL 31.2-35.0 786-4) RDW-SD (test code = 48.8 fL 38.5-51.6 35163-3) RDW-CV (test code = 13.7 % 12.1-15.4 788-0) PLT (test code = See_Comment [Automated 777-3) message] The system which generated this result transmit meng reference range : 150 - 328 10*3/ ?L. The reference range was not u sed to interpret th is result as normal/abnormal . MPV (test code = 10.6 fL 9.8-13.0 50892-0) NRBC/100 WBC (test See_Comment [Automat ed code = 3221724914) message] The system which generated this result transmit meng reference range : 0.0 - 10.0 /100 WBCs. The reference range was not used to interpret this result as normal/abnormal . NRBC x10^3 (test code <0.01 See_Comment [Auto mated = 1977507179) message] The system which generated this result transmit meng reference range : 10*3/?L. The reference range was not used to interpret this result as normal/abnormal . GRAN MAT (NEUT) % 88.8 % (test code = 770-8) IMM GRAN % (test code 3.70 % = 4188840439) LYMPH % (test code = 1.6 % 736-9) MONO % (test code = 5.3 % 5905-5) EOS % (test code = 0.1 % 713-8) BASO % (test code = 0.5 % 706-2) GRAN MAT x10^3(ANC) 30.10 10*3/uL 1.99-6.95 H (test code = 6673307352) IMM GRAN x10^3 (test 1.26 10*3/uL 0.00-0.06 H code = 3556124807) LYMPH x10^3 (test code 0.53 10*3/uL 1.09-3.23 L = 731-0) MONO x10^3 (test code 1.78 10*3/uL 0.36-1.02 H = 742-7) EOS x10^3 (test code = <0.03 0.06-0.53 L 711-2) BASO x10^3 (test code 0.16 10*3/uL 0.01-0.09 H = 704-7) Lab Interpretation Abnormal (test code = 62685-8) [facility] 11:45:41 Test Item Value Reference Range Interpretation Comments MAGNESIUM (test code = 4510276043) 1.7 mg/dL 1.7-2.4 Lab Interpretation (test code = Normal 38283-4) [facility] [id number] 18:01:51 Test Item Value Reference Range Interpretation Comments CRP (test code = 9996674332) 40.3 mg/dL <0.8 H Lab Interpretation (test code = Abnormal 99281-0) [facility]2020-12-16 16:28:14 Test Item Value Reference Range Interpretation Comments POCT GLU (test code = 4215564183) 100 mg/dL 70-110 Lab Interpretation (test code = Normal 19843-5) [facility] with [id number] 13:12:48 Test Item Value Reference Range Interpretation Comments WBC (test code = See_Comment H [Automated 6690-2) message] The system which generated this result transmit meng reference range : 4.20 - 10.70 10*3/?L. The reference range was not used to interpret this result as normal/abnormal . RBC (test code = See_Comment L [Automated 789-8) message] The system which generated this result transmit meng reference range : 4.26 - 5.52 10*6/?L. The reference range was not used to interpret this result as normal/abnormal . HGB (test code = 13.6 g/dL 12.2-16.4 718-7) HCT (test code = 39.2 % 38.4-49.3 4544-3) MCV (test code = 93.3 fL 81.7-95.6 787-2) MCH (test code = 32.4 pg 26.1-32.7 785-6) MCHC (test code = 34.7 g/dL 31.2-35.0 786-4) RDW-SD (test code = 47.1 fL 38.5-51.6 56044-1) RDW-CV (test code = 13.7 % 12.1-15.4 788-0) PLT (test code = See_Comment [Automated 777-3) message] The system which generated this result transmit meng reference range : 150 - 328 10*3/ ?L. The reference range was not u sed to interpret th is result as normal/abnormal . MPV (test code = 10.0 fL 9.8-13.0 48413-9) NRBC/100 WBC (test See_Comment [Automat ed code = 8012354000) message] The system which generated this result transmit meng reference range : 0.0 - 10.0 /100 WBCs. The reference range was not used to interpret this result as normal/abnormal . NRBC x10^3 (test code <0.01 See_Comment [Auto mated = 4922485156) message] The system which generated this result transmit meng reference range : 10*3/?L. The reference range was not used to interpret this result as normal/abnormal . GRAN MAT (NEUT) % 84.7 % (test code = 770-8) IMM GRAN % (test code 3.50 % = 3491630488) LYMPH % (test code = 3.0 % 736-9) MONO % (test code = 7.6 % 5905-5) EOS % (test code = 0.5 % 713-8) BASO % (test code = 0.7 % 706-2) GRAN MAT x10^3(ANC) 21.52 10*3/uL 1.99-6.95 H (test code = 3216165480) IMM GRAN x10^3 (test 0.88 10*3/uL 0.00-0.06 H code = 8201473673) LYMPH x10^3 (test code 0.75 10*3/uL 1.09-3.23 L = 731-0) MONO x10^3 (test code 1.92 10*3/uL 0.36-1.02 H = 742-7) EOS x10^3 (test code = 0.12 10*3/uL 0.06-0.53 711-2) BASO x10^3 (test code 0.17 10*3/uL 0.01-0.09 H = 704-7) BANDS (test code = Increased A 6242951804) TOXIC CHANGES (test Present A code = 803-7) Lab Interpretation Abnormal (test code = 77413-5) [facility]2020-12-16 12:59:57 Test Item Value Reference Range Interpretation Comments POCT GLU (test code = 7107896671) 74 mg/dL 70-110 Lab Interpretation (test code = Normal 56058-5) [facility] Metabolic Panel (NA, K, CL, CO2, GLUCOSE, BUN, CREATININE, CA)2020-12-16 11:48:33 Test Item Value Reference Range Interpretation Comments NA (test code = 133 mmol/L 135-145 L 5791740194) K (test code = 4.2 mmol/L 3.5-5.0 3619109278) CL (test code = 93 mmol/L 98-108 L 7895498411) CO2 TOTAL (test code = 32 mmol/L 23-31 H 6719821283) AGAP (test code = 2-16 9542787999) BUN (test code = 13 mg/dL 7-23 6878600074) GLUCOSE (test code = 85 mg/dL 70-110 1174349797) CREATININE (test code = 0.57 mg/dL 0.60-1.25 L 2332631859) CALCIUM (test code = 9.0 mg/dL 8.6-10.6 1411628183) eGFR (test code = mL/min/1.73m2 4125695897) BERYL (test code = BERYL) Association of Glomerular Filtration Rate (GFR) and Staging of Kidney Disease* + --+ --+ ------+| GFR (mL/min/1.73 m2) ?| With Kidney Damage ?| ?Without Kidney Damage+ --------+ --------+ +| ?>90 ?| ?Stage one ?| ? Normal ?+ ---+ ---+ -------+| ?60-89 ?| ?Stage two ?| ? Decreased GFR ? + --+ --+ ------+| ?30-59 ?| ?Stage three ?| ? Stage three ? + --+ --+ ------+| ?15-29 ?| ?Stage four ? | ? Stage four ?+ ---+ ---+ -------+| ?<15 (or dialysis) ? ?| ?Stage five ? | ? Stage five ?+ ---+ ---+ -------+ *Each stage assumes the associated GFR level has been in effect for at least three months. ?Stages 1 to 5, with or without kidney disease, indicate chronic kidney disease. Notes: Determination of stages one and two (with eGFR >59mL/min/1.73 m2) requires estimation of kidney damage for at least three months as defined by structural or functional abnormalities of the kidney, manifested by either:Pathological abnormalities or Markers of kidney damage (including abnormalities in the composition of the blood or urine or abnormalities in imaging tests). Lab Interpretation Abnormal (test code = 36357-0) [facility] GLUCOSE (AUTOMATED)2020-12-16 00:46:05 Test Item Value Reference Range Interpretation Comments POCT GLU (test code = 5875343076) 110 mg/dL 70-110 Lab Interpretation (test code = Normal 96523-5) [facility] GLUCOSE (AUTOMATED)2020-12-15 21:11:33 Test Item Value Reference Range Interpretation Comments POCT GLU (test code = 2517304692) 128 mg/dL 70-110 H Lab Interpretation (test code = Abnormal 09804-7) [facility] WITH [id number] 15:40:21 Test Item Value Reference Range Interpretation Comments WBC (test code = See_Comment H [Automated 6690-2) message] The system which generated this result transmitted reference range : 4.20 - 10.70 10*3/?L. The reference range was not used to interpret this result as normal/abnormal . RBC (test code = See_Comment [Automated 789-8) message] The system which generated this result transmitted reference range : 4.26 - 5.52 10*6/?L. The reference range was not used to interpret this result as normal/abnormal . HGB (test code = 17.3 g/dL 12.2-16.4 H 718-7) HCT (test code = 50.8 % 38.4-49.3 H 4544-3) MCV (test code = 94.6 fL 81.7-95.6 787-2) MCH (test code = 32.2 pg 26.1-32.7 785-6) MCHC (test code = 34.1 g/dL 31.2-35.0 786-4) RDW-SD (test code = 47.8 fL 38.5-51.6 49254-3) RDW-CV (test code = 13.7 % 12.1-15.4 788-0) PLT (test code = See_Comment H [Automated 777-3) message] The system which generated this result transmitted reference range : 150 - 328 10*3/?L. The reference range was not used to interpret this result as normal/abnormal . MPV (test code = 10.2 fL 9.8-13.0 21835-7) NRBC/100 WBC (test See_Comment [Automat ed code = 9355985574) message] The system which generated this result transmitted reference range : 0.0 - 10.0 /100 WBCs. The reference range was not used to interpret this result as normal/abnormal . NRBC x10^3 (test code <0.01 See_Comment [Auto mated = 8975430596) message] The system which generated this result transmitted reference range : 10*3/?L. The reference range was not used to interpret this result as normal/abnormal . GRAN MAT (NEUT) % 90.6 % (test code = 770-8) IMM GRAN % (test code 2.60 % = 2920753444) LYMPH % (test code = 1.0 % 736-9) MONO % (test code = 5.2 % 5905-5) EOS % (test code = 0.0 % 713-8) BASO % (test code = 0.6 % 706-2) GRAN MAT x10^3(ANC) 24.61 10*3/uL 1.99-6.95 H (test code = 6085595902) IMM GRAN x10^3 (test 0.72 10*3/uL 0.00-0.06 H code = 0957428833) LYMPH x10^3 (test 0.27 10*3/uL 1.09-3.23 L code = 731-0) MONO x10^3 (test code 1.41 10*3/uL 0.36-1.02 H = 742-7) EOS x10^3 (test code <0.03 0.06-0.53 L = 711-2) BASO x10^3 (test code 0.16 10*3/uL 0.01-0.09 H = 704-7) BANDS (test code = MARKED INCREASED A 6784403289) TOXIC CHANGES (test Present A code = 803-7) GIANT PLATELETS (test Present See_Comment A [Auto mated code = 5908-9) message] The system which generated this result transmitted reference range : (none). The reference range was not used to interpret this result as normal/abnormal . Lab Interpretation Abnormal (test code = 29133-0) [facility]. METABOLIC PANEL (27369)2020-12-15 14:55:15 Test Item Value Reference Range Interpretation Comments NA (test code = 133 mmol/L 135-145 L 7049385170) K (test code = 4.4 mmol/L 3.5-5.0 5946829043) CL (test code = 85 mmol/L 98-108 L 8623439462) CO2 TOTAL (test code = 35 mmol/L 23-31 H 8057749880) AGAP (test code = 2-16 5380669521) BUN (test code = 18 mg/dL 7-23 5654016213) GLUCOSE (test code = 186 mg/dL 70-110 H 0855323863) CREATININE (test code = 0.66 mg/dL 0.60-1.25 5171228830) TOTAL BILI (test code = 1.3 mg/dL 0.1-1.1 H 8027277703) CALCIUM (test code = 10.4 mg/dL 8.6-10.6 6118397297) T PROTEIN (test code = 8.3 g/dL 6.3-8.2 H [id number]) ALBUMIN (test code = 4.3 g/dL 3.5-5.0 2536710274) ALK PHOS (test code = 252 U/L 34-122 H [id number]) ALTv (test code = 30 U/L 5-50 1742-6) AST(SGOT) (test code = 32 U/L 13-40 [id number]) eGFR (test code = mL/min/1.73m2 [id number]) BERYL (test code = BERYL) Association of Glomerular Filtration Rate (GFR) and Staging of Kidney Disease* + --+ --+ ------+| GFR (mL/min/1.73 m2) ?| With Kidney Damage ?| ?Without Kidney Damage+ --------+ --------+ +| ?>90 ?| ?Stage one ?| ? Normal ?+ ---+ ---+ -------+| ?60-89 ?| ?Stage two ?| ? Decreased GFR ? + --+ --+ ------+| ?30-59 ?| ?Stage three ?| ? Stage three ? + --+ --+ ------+| ?15-29 ?| ?Stage four ? | ? Stage four ?+ ---+ ---+ -------+| ?<15 (or dialysis) ? ?| ?Stage five ? | ? Stage five ?+ ---+ ---+ -------+ *Each stage assumes the associated GFR level has been in effect for at least three months. ?Stages 1 to 5, with or without kidney disease, indicate chronic kidney disease. Notes: Determination of stages one and two (with eGFR >59mL/min/1.73 m2) requires estimation of kidney damage for at least three months as defined by structural or functional abnormalities of the kidney, manifested by either:Pathological abnormalities or Markers of kidney damage (including abnormalities in the composition of the blood or urine or abnormalities in imaging tests). Lab Interpretation Abnormal (test code = 42083-1) [facility] 14:54:55 Test Item Value Reference Range Interpretation Comments LIPASE (test code = 2280482700) 958 U/L 0-220 H Lab Interpretation (test code = Abnormal 97069-5) [facility] P[facility] WO [id number] 16:00:52 1. Interval enlargement of a portal caval lymph node which may representmetastatic disease or primary lymphoma. 2. Narrowing of the lumen of the descending duodenum again demonstrated,similar to prior scans. This could represent duodenal stricture,malignancy, or lymphomatous involvement of the duodenum. Inflammatory boweldisease/Crohn's disease or IgG4 disease are also diagnostic possibilities 3. Worsening inflammatory fat change and infiltrative soft tissue densityaround the SMA and SMV. This has progressed since the prior scan from11/23/2020. This also likely represents the same process involving theduodenum. Differential diagnostic possibilities would include progressionof malignancy, lymphoma, or possibly IgG4 disease 4. No evidence of mechanical bowel obstruction. No free intraperitonealgas. No hydronephrosis or ureter stone 5. Tiny amount of free fluid within the posterior cul-de-sac of the pelvis 6. Prostate gland enlargement. 7. Colonic diverticulosis RL: ?2601 AFC: ?[id number] WITH INTRAVENOUS CONTRAST. CLINICAL INDICATIONS: ? Abdominal pain, acute, nonlocalized Ordering Physician: ; CATALINA COSTA TECHNIQUE: ?Axial computed tomographic images of the abdomen and pelviswere performed after administration of nonionic intravenous contrast. TheCT Imaging data was obtained utilizing radiation dose parameters inaccordance with ALARA (As Low As Reasonably Achievable) Quality of Study: Good - Diagnostic COMPARISON: ?11/23/2020 FINDINGS: ? Heart size appears normal. No pericardial effusion. Lung bases appear clear. Stomach is distended with gas and fluid. Theduodenum demonstrates luminal narrowing along the descending portion. Thismay be from a mass in the wall of the duodenum versus edema within theduodenal wall. Similar findings were noted on the prior scan from11/23/2020. Mild inflammatory fat cartwright ge remains present around the secondand third portions of the duodenum and partially extending around the headof the pancreas. There is increased fatty infiltration and soft tissueinfiltration around the SMA and superior mesenteric vein. Wispyinflammatory fat changes again noted along the gastrohepatic region andporta hepatis. A portal caval lymph node has increased in size from theprior scan and currently measures 3.4 x 2.1 cm. Adrenal glands appear normal. The left kidney appears normal. There is atiny nonobstructive 2 mm stone along the posterior right renal mid zone tolower pole on image 51. There is calcific atherosclerosis in the wall of the abdominal aortaextending into the iliac arteries. No inguinal lymphadenopathy. Prostate gland is enlarged. Urinary bladder is mildly distended. Tiny amount of free fluid within the pelvis. There is colonicdiverticulosis without evidence of acute diverticulitis. Transverse colonis mostly collapsed. There is mild gas within the right colon. No evidenceof mechanical bowel obstruction. The appendix is not identified. No free intraperitoneal gas. Tiny midline, fat-containing umbilical hernia. There is mild ectasia of theinfrarenal aorta which measures upto 2.5 cm. Normal alignment of the spine. No compression fracture. No suspicious lyticor blastic lesions are identified. [facility], Radiant Results Inft User - 12/11/2020 11:01 AM CDTFormatting of this notemight be different from the original.ABDOMEN AND PELVIS CT WITH INTRAVENOUS CONTRAST.CLINICAL INDICATIONS: Abdominal pain, acute, nonlocalized Ordering Physician: ; CATALINA COSTATECHSOLO: Axialcomputed tomographic images of the abdomen and pelviswere performed after administration of nonionic intravenous contrast. TheCT Imaging data was obtained utilizing radiation dose parameters inaccordance with ALARA (As Low As Reasonably Achievable)Quality of Study: Good - DiagnosticCOMPARISON: 11/23/2020FINDINGS: Heart size appears normal. No pericardial effusion.Lung bases appear clear. Stomach is distended with gas and fluid. Theduodenum demonstrates luminal narrowing along the descending portion. Thismay be from a mass in the wall of the duodenum versus edema within theduodenal wall. Similar findings were noted on the prior scan from11/23/2020. Mild inflammatory fat change remains present around the secondand third portions of the duodenum and partially extending around the headof the pancreas. There is increased fatty infiltration and soft tissueinfiltration around the SMA and superior mesenteric vein. Wispyinflammatory fat changes again noted along the gastrohepatic region andporta hepatis. A portal caval lymph node has increased in size from theprior scan and currently measures 3.4 x 2.1 cm.Adrenal glands appear normal. The left kidney appears normal. There is atiny nonobstructive 2 mm stone along the posterior right renal mid zone tolower pole on image 51.There is calcific atherosclerosis in the wall of the abdominal aortaextending into the iliac arteries.No inguinal lymphadenopathy.Prostate gland is enlarged. Urinary bladder is mildly distended.Tiny amount of free fluid within the pelvis. There is colonicdiverticulosis without evidence of acute diverticulitis. Transverse colonis mostly collapsed. There is mild gas within the right colon. No evidenceof mechanical bowel obstruction. The appendix is not identified.No free intraperitoneal gas.Tiny midline, fat-containing umbilical he rnia. There is mild ectasia of theinfrarenal aorta which measures up to 2.5 cm.Normal alignment of the spine. No compression fracture. No suspicious lyticor blastic lesions are identified.IMPRESSION1. Interval enlargement of a portal caval lymph node which may representmetastatic disease or primary lymphoma.2. Narrowing of the lumen of the descending duodenum again demonstrated,similar to prior scans. This could represent duodenal stricture,malignancy, or lymphomatous involvement of the duodenum. Inflammatory boweldisease/Crohn's disease or IgG4 disease are also diagnostic possibilities3. Worseninginflammatory fat change and infiltrative soft tissue densityaround the SMA and SMV. This has progressed since the prior scan from11/23/2020. This also likely represents the same process involving theduodenum. Differential diagnostic possibilities would include progressionof malignancy, lymphoma, or possibly IgG4 disease4. No evidence of mechanical bowel obstruction. No free intraperitonealgas. No hydronephrosis or ureter stone5. Tiny amount of free fluid within the posterior cul-de-sac of the pelvis6. Prostate gland enlargement.7. Colonic diverticulosisRL: 2601AFC: [id number] [facility] [id number] 16:00:52 1. Interval enlargement of a portal caval lymph node which may representmetastatic disease or primary lymphoma. 2. Narrowing of the lumen of the descending duodenum again demonstrated,similar to prior scans. This could represent duodenal stricture,malignancy, or lymphomatous involvement of the duodenum. Inflammatory boweldisease/Crohn's disease or IgG4 disease are also diagnostic possibilities 3. Worsening inflammatory fat change and infiltrative soft tissue densityaround the SMA and SMV. This has progressed since the prior scan from11/23/2020. This also likely represents the same process involving theduodenum. Differential diagnostic possibilities would include progressionof malignancy, lymphoma, or possibly IgG4 disease 4. No evidence of mechanical bowel obstruction. No free intraperitonealgas. No hydronephrosis or ureter stone 5. Tiny amount of free fluid within the posterior cul-de-sac of the pelvis 6. Prostate gland enlargement. 7. Colonic diverticulosis RL: ?2601 AFC: ?[id number] WITH INTRAVENOUS CONTRAST. CLINICAL INDICATIONS: ? Abdominal pain, acute, nonlocalized Ordering Physician: ; CATALINA COSTA TECHNIQUE: ?Axial computed tomographic images of the abdomen and pelviswere performed after administration of nonionic intravenous contrast. TheCT Imaging data was obtained utilizing radiation dose parameters inaccordance with ALARA (As Low As Reasonably Achievable) Quality of Study: Good - Diagnostic COMPARISON: ?11/23/2020 FINDINGS: ? Heart size appears normal. No pericardial effusion. Lung bases appear clear. Stomach is distended with gas and fluid. Theduodenum demonstrates luminal narrowing along the descending portion. Thismay be from a mass in the wall of the duodenum versus edema within theduodenal wall. Similar findings were noted on the prior scan from11/23/2020. Mild inflammatory fat cartwright ge remains present around the secondand third portions of the duodenum and partially extending around the headof the pancreas. There is increased fatty infiltration and soft tissueinfiltration around the SMA and superior mesenteric vein. Wispyinflammatory fat changes again noted along the gastrohepatic region andporta hepatis. A portal caval lymph node has increased in size from theprior scan and currently measures 3.4 x 2.1 cm. Adrenal glands appear normal. The left kidney appears normal. There is atiny nonobstructive 2 mm stone along the posterior right renal mid zone tolower pole on image 51. There is calcific atherosclerosis in the wall of the abdominal aortaextending into the iliac arteries. No inguinal lymphadenopathy. Prostate gland is enlarged. Urinary bladder is mildly distended. Tiny amount of free fluid within the pelvis. There is colonicdiverticulosis without evidence of acute diverticulitis. Transverse colonis mostly collapsed. There is mild gas within the right colon. No evidenceof mechanical bowel obstruction. The appendix is not identified. No free intraperitoneal gas. Tiny midline, fat-containing umbilical hernia. There is mild ectasia of theinfrarenal aorta which measures upto 2.5 cm. Normal alignment of the spine. No compression fracture. No suspicious lyticor blastic lesions are identified. [facility], Radiant Results Inft User - 12/11/2020 11:01 AM CDTFormatting of this notemight be different from the original.ABDOMEN AND PELVIS CT WITH INTRAVENOUS CONTRAST.CLINICAL INDICATIONS: Abdominal pain, acute, nonlocalized Ordering Physician: ; CATALINA COSTATECHNIQUE: Axialcomputed tomographic images of the abdomen and pelviswere performed after administration of nonionic intravenous contrast. TheCT Imaging data was obtained utilizing radiation dose parameters inaccordance with ALARA (As Low As Reasonably Achievable)Quality of Study: Good - DiagnosticCOMPARISON: 11/23/2020FINDINGS: Heart size appears normal. No pericardial effusion.Lung bases appear clear. Stomach is distended with gas and fluid. Theduodenum demonstrates luminal narrowing along the descending portion. Thismay be from a mass in the wall of the duodenum versus edema within theduodenal wall. Similar findings were noted on the prior scan from11/23/2020. Mild inflammatory fat change remains present around the secondand third portions of the duodenum and partially extending around the headof the pancreas. There is increased fatty infiltration and soft tissueinfiltration around the SMA and superior mesenteric vein. Wispyinflammatory fat changes again noted along the gastrohepatic region andporta hepatis. A portal caval lymph node has increased in size from theprior scan and currently measures 3.4 x 2.1 cm.Adrenal glands appear normal. The left kidney appears normal. There is atiny nonobstructive 2 mm stone along the posterior right renal mid zone tolower pole on image 51.There is calcific atherosclerosis in the wall of the abdominal aortaextending into the iliac arteries.No inguinal lymphadenopathy.Prostate gland is enlarged. Urinary bladder is mildly distended.Tiny amount of free fluid within the pelvis. There is colonicdiverticulosis without evidence of acute diverticulitis. Transverse colonis mostly collapsed. There is mild gas within the right colon. No evidenceof mechanical bowel obstruction. The appendix is not identified.No free intraperitoneal gas.Tiny midline, fat-containing umbilical he rnia. There is mild ectasia of theinfrarenal aorta which measures up to 2.5 cm.Normal alignment of the spine. No compression fracture. No suspicious lyticor blastic lesions are identified.IMPRESSION1. Interval enlargement of a portal caval lymph node which may representmetastatic disease or primary lymphoma.2. Narrowing of the lumen of the descending duodenum again demonstrated,similar to prior scans. This could represent duodenal stricture,malignancy, or lymphomatous involvement of the duodenum. Inflammatory boweldisease/Crohn's disease or IgG4 disease are also diagnostic possibilities3. Worseninginflammatory fat change and infiltrative soft tissue densityaround the SMA and SMV. This has progressed since the prior scan from11/23/2020. This also likely represents the same process involving theduodenum. Differential diagnostic possibilities would include progressionof malignancy, lymphoma, or possibly IgG4 disease4. No evidence of mechanical bowel obstruction. No free intraperitonealgas. No hydronephrosis or ureter stone5. Tiny amount of free fluid within the posterior cul-de-sac of the pelvis6. Prostate gland enlargement.7. Colonic diverticulosisRL: 2601AFC: [id number] [facility] with Vrdcrynrtbwm2278-81-27 15:00:07 Test Item Value Reference Range Interpretation Comments WBC (test code = See_Comment H [Automated 8784-2) message] The system which generated this result transmit meng reference range : 4.20 - 10.70 10*3/?L. The reference range was not used to interpret this result as normal/abnormal . RBC (test code = See_Comment [Automated 839-8) message] The system which generated this result transmit meng reference range : 4.26 - 5.52 10*6/?L. The reference range was not used to interpret this result as normal/abnormal . HGB (test code = 17.1 g/dL 12.2-16.4 H 718-7) HCT (test code = 48.9 % 38.4-49.3 4544-3) MCV (test code = 93.1 fL 81.7-95.6 787-2) MCH (test code = 32.6 pg 26.1-32.7 785-6) MCHC (test code = 35.0 g/dL 31.2-35.0 786-4) RDW-SD (test code = 45.2 fL 38.5-51.6 95155-6) RDW-CV (test code = 13.2 % 12.1-15.4 788-0) PLT (test code = See_Comment H [Automated 777-3) message] The system which generated this result transmit meng reference range : 150 - 328 10*3/ ?L. The reference range was not u sed to interpret th is result as normal/abnormal . MPV (test code = 10.0 fL 9.8-13.0 49935-4) NRBC/100 WBC (test See_Comment [Automat ed code = [id number]) message] The system which generated this result transmit meng reference range : 0.0 - 10.0 /100 WBCs. The reference range was not used to interpret this result as normal/abnormal . NRBC x10^3 (test code <0.01 See_Comment [Auto mated = [id number]) message] The system which generated this result transmit meng reference range : 10*3/?L. The reference range was not used to interpret this result as normal/abnormal . GRAN MAT (NEUT) % 82.0 % (test code = 770-8) IMM GRAN % (test code 3.50 % = 6185964505) LYMPH % (test code = 2.5 % 736-9) MONO % (test code = 10.9 % 5905-5) EOS % (test code = 0.4 % 713-8) BASO % (test code = 0.7 % 706-2) GRAN MAT x10^3(ANC) 19.94 10*3/uL 1.99-6.95 H (test code = 8694370864) IMM GRAN x10^3 (test 0.84 10*3/uL 0.00-0.06 H code = 6659692307) LYMPH x10^3 (test code 0.62 10*3/uL 1.09-3.23 L = 731-0) MONO x10^3 (test code 2.66 10*3/uL 0.36-1.02 H = 742-7) EOS x10^3 (test code = 0.10 10*3/uL 0.06-0.53 711-2) BASO x10^3 (test code 0.18 10*3/uL 0.01-0.09 H = 704-7) Lab Interpretation Abnormal (test code = 76885-6) [facility] with [id number] 15:00:07 Test Item Value Reference Range Interpretation Comments WBC (test code = See_Comment H [Automated 6690-2) message] The system which generated this result transmit meng reference range : 4.20 - 10.70 10*3/?L. The reference range was not used to interpret this result as normal/abnormal . RBC (test code = See_Comment [Automated 789-8) message] The system which generated this result transmit meng reference range : 4.26 - 5.52 10*6/?L. The reference range was not used to interpret this result as normal/abnormal . HGB (test code = 17.1 g/dL 12.2-16.4 H 718-7) HCT (test code = 48.9 % 38.4-49.3 4544-3) MCV (test code = 93.1 fL 81.7-95.6 787-2) MCH (test code = 32.6 pg 26.1-32.7 785-6) MCHC (test code = 35.0 g/dL 31.2-35.0 786-4) RDW-SD (test code = 45.2 fL 38.5-51.6 64159-2) RDW-CV (test code = 13.2 % 12.1-15.4 788-0) PLT (test code = See_Comment H [Automated 777-3) message] The system which generated this result transmit meng reference range : 150 - 328 10*3/ ?L. The reference range was not u sed to interpret th is result as normal/abnormal . MPV (test code = 10.0 fL 9.8-13.0 71713-0) NRBC/100 WBC (test See_Comment [Automat ed code = 4391772148) message] The system which generated this result transmit meng reference range : 0.0 - 10.0 /100 WBCs. The reference range was not used to interpret this result as normal/abnormal . NRBC x10^3 (test code <0.01 See_Comment [Auto mated = 8198634128) message] The system which generated this result transmit meng reference range : 10*3/?L. The reference range was not used to interpret this result as normal/abnormal . GRAN MAT (NEUT) % 82.0 % (test code = 770-8) IMM GRAN % (test code 3.50 % = 0994939253) LYMPH % (test code = 2.5 % 736-9) MONO % (test code = 10.9 % 5905-5) EOS % (test code = 0.4 % 713-8) BASO % (test code = 0.7 % 706-2) GRAN MAT x10^3(ANC) 19.94 10*3/uL 1.99-6.95 H (test code = 9090070549) IMM GRAN x10^3 (test 0.84 10*3/uL 0.00-0.06 H code = 3216813611) LYMPH x10^3 (test code 0.62 10*3/uL 1.09-3.23 L = 731-0) MONO x10^3 (test code 2.66 10*3/uL 0.36-1.02 H = 742-7) EOS x10^3 (test code = 0.10 10*3/uL 0.06-0.53 711-2) BASO x10^3 (test code 0.18 10*3/uL 0.01-0.09 H = 704-7) Lab Interpretation Abnormal (test code = 20887-9) [facility] NOW RAPID TESTING)2020-12-11 14:35:28 Test Item Value Reference Range Interpretation Comments SARS-CoV-2 Rapid ID NOW Not Detected Not Detected (test code = 21297-8) BERYL (test code = BERYL) ID NOW COVID-19 Assay is an isothermal nucleic acid amplification test intended for the qualitative detection of nucleic acid from SARS-CoV-2 viral RNA in nasopharyngeal ([employer]) specimens. It is used under Emergency Use Authorization (EUA) by FDA. The limit of detection (LOD) of the assay is 125 Genome Equivalents/mL. A positive result is indicative of the presence of SARS-CoV-2 RNA. ?Clinical correlation with patient history and other diagnostic information is necessary to determine patient infection status. A negative (Not Detected) result does not preclude SARS-CoV-2 infection. In patients with a high suspicion of SARS-CoV-2 infection, negative results should be treated as presumptive negative and a new specimen should be tested with alternative nucleic acid amplification molecular test. Invalid: Please collect a new specimen for repeat patient testing if clinically indicated. Lab Interpretation Normal (test code = 75269-1) [facility]ID NOW RAPID TESTING)2020-12-11 14:35:28 Test Item Value Reference Range Interpretation Comments SARS-CoV-2 Rapid ID NOW Not Detected Not Detected (test code = 13338-8) BERYL (test code = BERYL) ID NOW COVID-19 Assay is an isothermal nucleic acid amplification test intended for the qualitative detection of nucleic acid from SARS-CoV-2 viral RNA in nasopharyngeal ([employer]) specimens. It is used under Emergency Use Authorization (EUA) by FDA. The limit of detection (LOD) of the assay is 125 Genome Equivalents/mL. A positive result is indicative of the presence of SARS-CoV-2 RNA. ?Clinical correlation with patient history and other diagnostic information is necessary to determine patient infection status. A negative (Not Detected) result does not preclude SARS-CoV-2 infection. In patients with a high suspicion of SARS-CoV-2 infection, negative results should be treated as presumptive negative and a new specimen should be tested with alternative nucleic acid amplification molecular test. Invalid: Please collect a new specimen for repeat patient testing if clinically indicated. Lab Interpretation Normal (test code = 84256-0) [facility]vine[facility] Metabolic Tcsrd5380-90-46 14:33:47 Test Item Value Reference Range Interpretation Comments NA (test code = 133 mmol/L 135-145 L 6313656625) K (test code = 3.9 mmol/L 3.5-5.0 4675677852) CL (test code = 88 mmol/L 98-108 L 2560191388) CO2 TOTAL (test code = 28 mmol/L 23-31 8325285323) AGAP (test code = 2-16 H 6961109255) BUN (test code = 12 mg/dL 7-23 9618792590) GLUCOSE (test code = 101 mg/dL 70-110 5631365771) CREATININE (test code = 0.59 mg/dL 0.60-1.25 L 7495900908) TOTAL BILI (test code = 1.8 mg/dL 0.1-1.1 H 0107513077) CALCIUM (test code = 10.7 mg/dL 8.6-10.6 H 5045698108) T PROTEIN (test code = 9.1 g/dL 6.3-8.2 H 5316691992) ALBUMIN (test code = 4.8 g/dL 3.5-5.0 4458891486) ALK PHOS (test code = 184 U/L 34-122 H 5025941972) ALTv (test code = 20 U/L 5-50 1742-6) AST(SGOT) (test code = 29 U/L 13-40 4850176735) eGFR (test code = mL/min/1.73m2 8960617837) BERYL (test code = BERYL) Association of Glomerular Filtration Rate (GFR) and Staging of Kidney Disease* + --+ --+ ------+| GFR (mL/min/1.73 m2) ?| With Kidney Damage ?| ?Without Kidney Damage+ --------+ --------+ +| ?>90 ?| ?Stage one ?| ? Normal ?+ ---+ ---+ -------+| ?60-89 ?| ?Stage two ?| ? Decreased GFR ? + --+ --+ ------+| ?30-59 ?| ?Stage three ?| ? Stage three ? + --+ --+ ------+| ?15-29 ?| ?Stage four ? | ? Stage four ?+ ---+ ---+ -------+| ?<15 (or dialysis) ? ?| ?Stage five ? | ? Stage five ?+ ---+ ---+ -------+ *Each stage assumes the associated GFR level has been in effect for at least three months. ?Stages 1 to 5, with or without kidney disease, indicate chronic kidney disease. Notes: Determination of stages one and two (with eGFR >59mL/min/1.73 m2) requires estimation of kidney damage for at least three months as defined by structural or functional abnormalities of the kidney, manifested by either:Pathological abnormalities or Markers of kidney damage (including abnormalities in the composition of the blood or urine or abnormalities in imaging tests). Lab Interpretation Abnormal (test code = 16389-1) [facility] Metabolic [place]2035-13-51 14:33:47 Test Item Value Reference Range Interpretation Comments NA (test code = 133 mmol/L 135-145 L 1646500965) K (test code = 3.9 mmol/L 3.5-5.0 6224957087) CL (test code = 88 mmol/L 98-108 L 7135329068) CO2 TOTAL (test code = 28 mmol/L 23-31 4486276073) AGAP (test code = 2-16 H 1563650597) BUN (test code = 12 mg/dL 7-23 1023580811) GLUCOSE (test code = 101 mg/dL 70-110 7051084165) CREATININE (test code = 0.59 mg/dL 0.60-1.25 L 5616686450) TOTAL BILI (test code = 1.8 mg/dL 0.1-1.1 H 3422901925) CALCIUM (test code = 10.7 mg/dL 8.6-10.6 H 5411779423) T PROTEIN (test code = 9.1 g/dL 6.3-8.2 H 6029976226) ALBUMIN (test code = 4.8 g/dL 3.5-5.0 6632826530) ALK PHOS (test code = 184 U/L 34-122 H 4860023226) ALTv (test code = 20 U/L 5-50 1742-6) AST(SGOT) (test code = 29 U/L 13-40 6981717448) eGFR (test code = mL/min/1.73m2 3953108806) BERYL (test code = BERYL) Association of Glomerular Filtration Rate (GFR) and Staging of Kidney Disease* + --+ --+ ------+| GFR (mL/min/1.73 m2) ?| With Kidney Damage ?| ?Without Kidney Damage+ --------+ --------+ +| ?>90 ?| ?Stage one ?| ? Normal ?+ ---+ ---+ -------+| ?60-89 ?| ?Stage two ?| ? Decreased GFR ? + --+ --+ ------+| ?30-59 ?| ?Stage three ?| ? Stage three ? + --+ --+ ------+| ?15-29 ?| ?Stage four ? | ? Stage four ?+ ---+ ---+ -------+| ?<15 (or dialysis) ? ?| ?Stage five ? | ? Stage five ?+ ---+ ---+ -------+ *Each stage assumes the associated GFR level has been in effect for at least three months. ?Stages 1 to 5, with or without kidney disease, indicate chronic kidney disease. Notes: Determination of stages one and two (with eGFR >59mL/min/1.73 m2) requires estimation of kidney damage for at least three months as defined by structural or functional abnormalities of the kidney, manifested by either:Pathological abnormalities or Markers of kidney damage (including abnormalities in the composition of the blood or urine or abnormalities in imaging tests). Lab Interpretation Abnormal (test code = 50350-2) [facility] [id number] 14:33:06 Test Item Value Reference Range Interpretation Comments LIPASE (test code = 3584682194) 394 U/L 0-220 H Lab Interpretation (test code = Abnormal 36251-7) [facility], [id number] 14:33:06 Test Item Value Reference Range Interpretation Comments LIPASE (test code = 9303622038) 394 U/L 0-220 H Lab Interpretation (test code = Abnormal 90594-3) [facility] (81767) (ALB,T.PRO,BILI T,BU/BC,ALT,AST,ALK PHOS)2020-11-30 10:11:25 Test Item Value Reference Range Interpretation Comments TOTAL BILI (test code = 7556528736) 0.5 mg/dL 0.1-1.1 BILI UNCON (test code = 9629730739) 0.3 mg/dL 0.1-1.1 BILI CONJ (test code = 9322274800) 0.0 mg/dL 0.0-0.3 T PROTEIN (test code = 6985152162) 6.5 g/dL 6.3-8.2 ALBUMIN (test code = 0793697086) 3.5 g/dL 3.5-5.0 ALK PHOS (test code = 6527559632) 185 U/L 34-122 H ALTv (test code = 1742-6) 76 U/L 5-50 H AST(SGOT) (test code = 8942025292) 40 U/L 13-40 Lab Interpretation (test code = Abnormal 78685-5) [facility] METABOLIC PANEL (NA, K, CL, CO2, GLUCOSE, BUN, CREATININE, CA)2020-11-30 10:11:25 Test Item Value Reference Range Interpretation Comments NA (test code = 134 mmol/L 135-145 L 1542964667) K (test code = 4.5 mmol/L 3.5-5.0 5838188148) CL (test code = 98 mmol/L 98-108 4419856168) CO2 TOTAL (test code = 27 mmol/L 23-31 1076758101) AGAP (test code = 2-16 1268815427) BUN (test code = 9 mg/dL 7-23 1904640969) GLUCOSE (test code = 74 mg/dL 70-110 4293393771) CREATININE (test code = 0.56 mg/dL 0.60-1.25 L 0553542011) CALCIUM (test code = 9.3 mg/dL 8.6-10.6 5608581777) eGFR (test code = mL/min/1.73m2 7762225406) BERYL (test code = BERYL) Association of Glomerular Filtration Rate (GFR) and Staging of Kidney Disease* + --+ --+ ------+| GFR (mL/min/1.73 m2) ?| With Kidney Damage ?| ?Without Kidney Damage+ --------+ --------+ +| ?>90 ?| ?Stage one ?| ? Normal ?+ ---+ ---+ -------+| ?60-89 ?| ?Stage two ?| ? Decreased GFR ? + --+ --+ ------+| ?30-59 ?| ?Stage three ?| ? Stage three ? + --+ --+ ------+| ?15-29 ?| ?Stage four ? | ? Stage four ?+ ---+ ---+ -------+| ?<15 (or dialysis) ? ?| ?Stage five ? | ? Stage five ?+ ---+ ---+ -------+ *Each stage assumes the associated GFR level has been in effect for at least three months. ?Stages 1 to 5, with or without kidney disease, indicate chronic kidney disease. Notes: Determination of stages one and two (with eGFR >59mL/min/1.73 m2) requires estimation of kidney damage for at least three months as defined by structural or functional abnormalities of the kidney, manifested by either:Pathological abnormalities or Markers of kidney damage (including abnormalities in the composition of the blood or urine or abnormalities in imaging tests). Lab Interpretation Abnormal (test code = 37949-7) [facility]88100[facility] (ALB,T.PRO,BILI T,BU/BC,ALT,AST,ALK PHOS)2020-11-30 10:11:25 Test Item Value Reference Range Interpretation Comments TOTAL BILI (test code = 9217662222) 0.5 mg/dL 0.1-1.1 BILI UNCON (test code = 5263573277) 0.3 mg/dL 0.1-1.1 BILI CONJ (test code = 9983066449) 0.0 mg/dL 0.0-0.3 T PROTEIN (test code = 7266870790) 6.5 g/dL 6.3-8.2 ALBUMIN (test code = 8154376974) 3.5 g/dL 3.5-5.0 ALK PHOS (test code = 2064294258) 185 U/L 34-122 H ALTv (test code = 1742-6) 76 U/L 5-50 H AST(SGOT) (test code = 0261278966) 40 U/L 13-40 Lab Interpretation (test code = Abnormal 75347-8) [facility] (NA, K, CL, CO2, GLUCOSE, BUN, CREATININE, CA)2020-11-30 10:11:25 Test Item Value Reference Range Interpretation Comments NA (test code = 134 mmol/L 135-145 L 7736320294) K (test code = 4.5 mmol/L 3.5-5.0 5097792728) CL (test code = 98 mmol/L 98-108 3136380960) CO2 TOTAL (test code = 27 mmol/L 23-31 6463032872) AGAP (test code = 2-16 3325843308) BUN (test code = 9 mg/dL 7-23 0740431134) GLUCOSE (test code = 74 mg/dL 70-110 4059453757) CREATININE (test code = 0.56 mg/dL 0.60-1.25 L 5604709035) CALCIUM (test code = 9.3 mg/dL 8.6-10.6 2235680306) eGFR (test code = mL/min/1.73m2 8700913285) BERYL (test code = BERYL) Association of Glomerular Filtration Rate (GFR) and Staging of Kidney Disease* + --+ --+ ------+| GFR (mL/min/1.73 m2) ?| With Kidney Damage ?| ?Without Kidney Damage+ --------+ --------+ +| ?>90 ?| ?Stage one ?| ? Normal ?+ ---+ ---+ -------+| ?60-89 ?| ?Stage two ?| ? Decreased GFR ? + --+ --+ ------+| ?30-59 ?| ?Stage three ?| ? Stage three ? + --+ --+ ------+| ?15-29 ?| ?Stage four ? | ? Stage four ?+ ---+ ---+ -------+| ?<15 (or dialysis) ? ?| ?Stage five ? | ? Stage five ?+ ---+ ---+ -------+ *Each stage assumes the associated GFR level has been in effect for at least three months. ?Stages 1 to 5, with or without kidney disease, indicate chronic kidney disease. Notes: Determination of stages one and two (with eGFR >59mL/min/1.73 m2) requires estimation of kidney damage for at least three months as defined by structural or functional abnormalities of the kidney, manifested by either:Pathological abnormalities or Markers of kidney damage (including abnormalities in the composition of the blood or urine or abnormalities in imaging tests). Lab Interpretation Abnormal (test code = 44754-5) [facility] (08624[facility] (ALB,T.PRO,BILI T,BU/BC,ALT,AST,ALK PHOS)2020-11-30 02:22:55 Test Item Value Reference Range Interpretation Comments TOTAL BILI (test code = 9331667426) 0.5 mg/dL 0.1-1.1 BILI UNCON (test code = 0086589305) 0.2 mg/dL 0.1-1.1 BILI CONJ (test code = 4134671670) 0.0 mg/dL 0.0-0.3 T PROTEIN (test code = 7061291475) 6.7 g/dL 6.3-8.2 ALBUMIN (test code = 0827158241) 3.6 g/dL 3.5-5.0 ALK PHOS (test code = 0330273699) 221 U/L 34-122 H ALTv (test code = 1742-6) 99 U/L 5-50 H AST(SGOT) (test code = 3589394345) 70 U/L 13-40 H Lab Interpretation (test code = Abnormal 90454-4) [facility] (64208) (ALB,T.PRO,BILI T,BU/BC,ALT,AST,ALK PHOS)2020-11-30 02:22:55 Test Item Value Reference Range Interpretation Comments TOTAL BILI (test code = 4994039136) 0.5 mg/dL 0.1-1.1 BILI UNCON (test code = 2395382548) 0.2 mg/dL 0.1-1.1 BILI CONJ (test code = 2501934014) 0.0 mg/dL 0.0-0.3 T PROTEIN (test code = 3445645924) 6.7 g/dL 6.3-8.2 ALBUMIN (test code = 2755095237) 3.6 g/dL 3.5-5.0 ALK PHOS (test code = 7389799686) 221 U/L 34-122 H ALTv (test code = 1742-6) 99 U/L 5-50 H AST(SGOT) (test code = 6015726429) 70 U/L 13-40 H Lab Interpretation (test code = Abnormal 50253-5) [facility] WITH [id number] 12:45:31 Test Item Value Reference Range Interpretation Comments WBC (test code = See_Comment [Automated 6690-2) message] The sy stem which generated this result transmitted reference range : 4.20 - 10.70 10*3/?L. The reference range was not used to interpret this result as normal/abnormal . RBC (test code = See_Comment [Automated 789-8) message] The sy stem which generated this result transmitted reference range : 4.26 - 5.52 10*6/?L. The reference range was not used to interpret this result as normal/abnormal . HGB (test code = 14.8 g/dL 12.2-16.4 718-7) HCT (test code = 45.0 % 38.4-49.3 4544-3) MCV (test code = 99.1 fL 81.7-95.6 H 787-2) MCH (test code = 32.6 pg 26.1-32.7 785-6) MCHC (test code = 32.9 g/dL 31.2-35.0 786-4) RDW-SD (test code = 50.8 fL 38.5-51.6 83505-8) RDW-CV (test code = 13.9 % 12.1-15.4 788-0) PLT (test code = See_Comment [Automated 777-3) message] The sy stem which generated this result transmitted reference range : 150 - 328 10*3/ ?L. The reference r kevin was not used to interpret this result as normal/abnormal . MPV (test code = 9.9 fL 9.8-13.0 94867-3) NRBC/100 WBC (test See_Comment [Automat ed code = 6633458166) message] The system which generated this result transmitted reference range : 0.0 - 10.0 /100 WBCs. The refer ence range was not u sed to interpret th is result as normal/abnormal . NRBC x10^3 (test code <0.01 See_Comment [Auto mated = 5467804011) message] The s ystem which generated this result transmitted reference range : 10*3/?L. The reference range was not used to interpret this result as normal/abnormal . GRAN MAT (NEUT) % 62.0 % (test code = 770-8) IMM GRAN % (test code 3.90 % = 8083999761) LYMPH % (test code = 13.5 % 736-9) MONO % (test code = 15.1 % 5905-5) EOS % (test code = 3.5 % 713-8) BASO % (test code = 2.0 % 706-2) GRAN MAT x10^3(ANC) 3.17 10*3/uL 1.99-6.95 (test code = 7504388223) IMM GRAN x10^3 (test 0.20 10*3/uL 0.00-0.06 H code = 8141884123) LYMPH x10^3 (test code 0.69 10*3/uL 1.09-3.23 L = 731-0) MONO x10^3 (test code 0.77 10*3/uL 0.36-1.02 = 742-7) EOS x10^3 (test code = 0.18 10*3/uL 0.06-0.53 711-2) BASO x10^3 (test code 0.10 10*3/uL 0.01-0.09 H = 704-7) BANDS (test code = Increased A 9601713843) TOXIC CHANGES (test Present A code = 803-7) Lab Interpretation Abnormal (test code = 53846-1) [facility] WITH [id number] 12:45:31 Test Item Value Reference Range Interpretation Comments WBC (test code = See_Comment [Automated 9190-2) message] The sy stem which generated this result transmitted reference range : 4.20 - 10.70 10*3/?L. The reference range was not used to interpret this result as normal/abnormal . RBC (test code = See_Comment [Automated 339-8) message] The sy stem which generated this result transmitted reference range : 4.26 - 5.52 10*6/?L. The reference range was not used to interpret this result as normal/abnormal . HGB (test code = 14.8 g/dL 12.2-16.4 718-7) HCT (test code = 45.0 % 38.4-49.3 4544-3) MCV (test code = 99.1 fL 81.7-95.6 H 787-2) MCH (test code = 32.6 pg 26.1-32.7 785-6) MCHC (test code = 32.9 g/dL 31.2-35.0 786-4) RDW-SD (test code = 50.8 fL 38.5-51.6 05558-5) RDW-CV (test code = 13.9 % 12.1-15.4 788-0) PLT (test code = See_Comment [Automated 777-3) message] The sy stem which generated this result transmitted reference range : 150 - 328 10*3/ ?L. The reference r kevin was not used to interpret this result as normal/abnormal . MPV (test code = 9.9 fL 9.8-13.0 48270-1) NRBC/100 WBC (test See_Comment [Automat ed code = 0318587945) message] The system which generated this result transmitted reference range : 0.0 - 10.0 /100 WBCs. The refer ence range was not u sed to interpret th is result as normal/abnormal . NRBC x10^3 (test code <0.01 See_Comment [Auto mated = 2836449357) message] The s ystem which generated this result transmitted reference range : 10*3/?L. The reference range was not used to interpret this result as normal/abnormal . GRAN MAT (NEUT) % 62.0 % (test code = 770-8) IMM GRAN % (test code 3.90 % = 1685879935) LYMPH % (test code = 13.5 % 736-9) MONO % (test code = 15.1 % 5905-5) EOS % (test code = 3.5 % 713-8) BASO % (test code = 2.0 % 706-2) GRAN MAT x10^3(ANC) 3.17 10*3/uL 1.99-6.95 (test code = 6355149223) IMM GRAN x10^3 (test 0.20 10*3/uL 0.00-0.06 H code = 8508014924) LYMPH x10^3 (test code 0.69 10*3/uL 1.09-3.23 L = 731-0) MONO x10^3 (test code 0.77 10*3/uL 0.36-1.02 = 742-7) EOS x10^3 (test code = 0.18 10*3/uL 0.06-0.53 711-2) BASO x10^3 (test code 0.10 10*3/uL 0.01-0.09 H = 704-7) BANDS (test code = Increased A 5657338634) TOXIC CHANGES (test Present A code = 803-7) Lab Interpretation Abnormal (test code = 43482-1) [facility] METABOLIC PANEL (NA, K, CL, CO2, GLUCOSE, BUN, CREATININE, CA)2020-11-29 09:57:07 Test Item Value Reference Range Interpretation Comments NA (test code = 136 mmol/L 135-145 0346749481) K (test code = 4.6 mmol/L 3.5-5.0 5811339457) CL (test code = 98 mmol/L 98-108 8092755992) CO2 TOTAL (test code = 28 mmol/L 23-31 6033882412) AGAP (test code = 2-16 4629352567) BUN (test code = 9 mg/dL 7-23 0476663622) GLUCOSE (test code = 100 mg/dL 70-110 5444934142) CREATININE (test code = 0.59 mg/dL 0.60-1.25 L 0803810855) CALCIUM (test code = 9.8 mg/dL 8.6-10.6 0203986966) eGFR (test code = mL/min/1.73m2 0352093162) BERYL (test code = BERYL) Association of Glomerular Filtration Rate (GFR) and Staging of Kidney Disease* + --+ --+ ------+| GFR (mL/min/1.73 m2) ?| With Kidney Damage ?| ?Without Kidney Damage+ --------+ --------+ +| ?>90 ?| ?Stage one ?| ? Normal ?+ ---+ ---+ -------+| ?60-89 ?| ?Stage two ?| ? Decreased GFR ? + --+ --+ ------+| ?30-59 ?| ?Stage three ?| ? Stage three ? + --+ --+ ------+| ?15-29 ?| ?Stage four ? | ? Stage four ?+ ---+ ---+ -------+| ?<15 (or dialysis) ? ?| ?Stage five ? | ? Stage five ?+ ---+ ---+ -------+ *Each stage assumes the associated GFR level has been in effect for at least three months. ?Stages 1 to 5, with or without kidney disease, indicate chronic kidney disease. Notes: Determination of stages one and two (with eGFR >59mL/min/1.73 m2) requires estimation of kidney damage for at least three months as defined by structural or functional abnormalities of the kidney, manifested by either:Pathological abnormalities or Markers of kidney damage (including abnormalities in the composition of the blood or urine or abnormalities in imaging tests). Lab Interpretation Abnormal (test code = 69915-5) [facility] METABOLIC PANEL (NA, K, CL, CO2, GLUCOSE, BUN, CREATININE, CA)2020-11-29 09:57:07 Test Item Value Reference Range Interpretation Comments NA (test code = 136 mmol/L 135-145 9066611076) K (test code = 4.6 mmol/L 3.5-5.0 8052520517) CL (test code = 98 mmol/L 98-108 5892147380) CO2 TOTAL (test code = 28 mmol/L 23-31 0693805054) AGAP (test code = 2-16 9919792423) BUN (test code = 9 mg/dL 7-23 6183645455) GLUCOSE (test code = 100 mg/dL 70-110 8166475457) CREATININE (test code = 0.59 mg/dL 0.60-1.25 L 0697382163) CALCIUM (test code = 9.8 mg/dL 8.6-10.6 1813495930) eGFR (test code = mL/min/1.73m2 8069119978) BERYL (test code = BERYL) Association of Glomerular Filtration Rate (GFR) and Staging of Kidney Disease* + --+ --+ ------+| GFR (mL/min/1.73 m2) ?| With Kidney Damage ?| ?Without Kidney Damage+ --------+ --------+ +| ?>90 ?| ?Stage one ?| ? Normal ?+ ---+ ---+ -------+| ?60-89 ?| ?Stage two ?| ? Decreased GFR ? + --+ --+ ------+| ?30-59 ?| ?Stage three ?| ? Stage three ? + --+ --+ ------+| ?15-29 ?| ?Stage four ? | ? Stage four ?+ ---+ ---+ -------+| ?<15 (or dialysis) ? ?| ?Stage five ? | ? Stage five ?+ ---+ ---+ -------+ *Each stage assumes the associated GFR level has been in effect for at least three months. ?Stages 1 to 5, with or without kidney disease, indicate chronic kidney disease. Notes: Determination of stages one and two (with eGFR >59mL/min/1.73 m2) requires estimation of kidney damage for at least three months as defined by structural or functional abnormalities of the kidney, manifested by either:Pathological abnormalities or Markers of kidney damage (including abnormalities in the composition of the blood or urine or abnormalities in imaging tests). Lab Interpretation Abnormal (test code = 59758-5) [facility] 09:56:10 Test Item Value Reference Range Interpretation Comments LIPASE (test code = 2399886185) 162 U/L 0-220 Lab Interpretation (test code = Normal 09876-5) [facility]21[facility] 09:56:10 Test Item Value Reference Range Interpretation Comments LIPASE (test code = 1249940004) 162 U/L 0-220 Lab Interpretation (test code = Normal 38480-4) [facility] CONTRAST [id number] 18:49:27 1. ?Limited study due to patient's inability to hold breath. 2. ?Interval improvement in peripancreatic fat stranding when compared tothe prior CT from November 23, 2020. A small ill-defined focus ofnonenhancement is seen in the head, best visualized on 16:353, and mayrepresent a focus of necrotizing pancreatitis. No evidence of pancreaticdilatation or a drainable fluid collection/abscess formation. 3. ?Prior cholecystectomy. Low insertion of cystic duct on the CBD.Prominent CBD measuring 0.8 cm in diameter, tapering towards the ampullawith no filling defects/choledocholithiasis. Diffuse hepatic steatosis withno focal lesions or intrahepatic biliary ductal dilatation. Diverticulosiswithout evidence of diverticulitis. Preliminary Report Dictated by Resident: Rich EdSonia Puentes MD., have reviewed this study and agree with theabove report.EXAM: MR ABDOMEN WO CONTRAST MRCP HISTORY: 50 years-old Male with acute on chronic pancreatitis. COMPARISON: CT abdomen pelvis with IV contrast 11/23/2020, MRI/MRC01/29/2020. TECHNIQUE: Multiplanar, multisequence, MR imaging of the abdomen wasperformed before and after administration of 15 mL IV ProHance. HeavilyT2-weighted MRCP images were also acquired for evaluation of the biliarytree. FINDINGS:Evaluation is limited by motion. LOWER THORAX: The lung bases are clear. LIVER: Hepatic parenchymal signal dropout on T2 phase imaging is suggestiveof diffuse hepatic steatosis. No focal hepatic lesions. No biliary ductaldilation. BILIARY TREE: Prior cholecystectomy. The cystic duct appears to attach tothe common bile duct within the pancreas. No ductal dilation or fillingdefects. SPLEEN: The spleen appears unremarkable. PANCREAS: Interval improvement in peripancreatic fat stranding whencompared to the prior CT from November 23, 2020. A small ill-defined focus ofnonenhancement is seen in the head, best visualized on 16:353, and mayrepresent a focus of necrotizing pancreatitis. No evidence of pancreaticdilatation or a drainable fluid collection/abscess formation. ADRENAL GLANDS: No adrenal masses are seen. KIDNEYS: No hydronephrosis, stones,or solid masses are visualized.Subcentimeter T2 hyperintense structures are likely cysts and too small tofurther characterize. PERITONEUM AND RETROPERITONEUM: No intra-abdominal free air or fluidcollection is visualized. GI TRACT: Diverticulosis without evidence of diverticulitis. LYMPH NODES: No enlarged intra-abdominal lymph nodes are found. VESSELS: Unremarkable. BONES AND SOFT TISSUES: No suspicious lytic or sclerotic bony lesions arepresent. Spondylotic changes are manifested by ? ?. [facility], Radiant Results Inft User - 11/28/2020 1:50 PM CDT EXAM: MR ABDOMEN WO CONTRAST MRCPHISTORY: 50 years- old Male with acute on chronic pancreatitis.COMPARISON: CT abdomen pelvis with IV contrast 11/23/2020, MRI/MRC01/29/2020.TECHNIQUE: Multiplanar, multisequence, MR imaging of the abdomen wasperformed before and after administration of 15 mL IV ProHance. HeavilyT2-weighted MRCP images were also acquired for evaluation of the biliarytree. FINDINGS:Evaluation is limited by motion.LOWER THORAX: The lung bases are clear.LIVER: Hepatic parenchymal signal dropout on T2 phase imaging is suggestiveof diffuse hepatic steatosis. No focal hepatic lesions. No biliary ductaldilation.BILIARY TREE: Prior cholecystectomy. The cystic duct appears to attach tothe common bile duct within the pancreas. No ductal dilation or fillingdefects.SPLEEN: The spleen appears unremarkable.PANCREAS: Interval improvement in peripancreatic fat stranding whencompared to theprior CT from November 23, 2020. A small ill-defined focus ofnonenhancement is seen in the head, best visualized on 16:353, and mayrepresent a focus of necrotizing pancreatitis. No evidence of pancreaticdilatation or a drainable fluid collection/abscess formation. ADRENAL GLANDS: No adrenal masses are seen.KIDNEYS: No hydronephrosis, stones, or solid masses are visualized.Subcentimeter T2 hyperintense structures are likely cysts and too small tofurther characterize.PERITONEUM AND RETROPERITONEUM: No intra-abdominal free air or fluidcollection is visualized. GI TRACT: Diverticulosis without evidence of diverticulitis.LYMPH NODES: No enlarged intra-abdominal lymph nodes are found.VESSELS: Unremarkable.BONES AND SOFT TISSUES: No suspicious lytic or sclerotic bony lesions arepresent. Spondylotic changes are manifested by .IMPRESSION1. Limited study due to patient's inability to hold breath.2. Inte rval improvement in peripancreatic fat stranding when compared tothe prior CT from November 23, 2020. A small ill-defined focus ofnonenhancement is seen in the head, best visualized on 16:353, and mayrepresent a focus of necrotizing pancreatitis. No evidence of pancreaticdilatation or a drainable fluid c ollection/abscess formation. 3. Prior cholecystectomy. Low insertion of cystic duct on the CBD.Prominent CBD measuring 0.8 cm in diameter, tapering towards the ampullawith no filling defects/choledocholithiasis. Diffuse hepatic steatosis withno focal lesions or intrahepatic biliary ductal dilatation. Diverticulosiswithout evidence of diverticulitis.Preliminary Report Dictated by Resident: Sonia Simeon MD., have reviewed this study and agree with theabove report.[facility] ABDOMEN WO CONTRAST [id number] 18:49:27 1. ?Limited study due to patient's inability to hold breath. 2. ?Interval improvement in peripancreatic fat stranding when compared tothe prior CT from November 23, 2020. A small ill-defined focus ofnone nhancement is seen in the head, best visualized on 16:353, and mayrepresent a focus of necrotizing pancreatitis. No evidence of pancreaticdilatation or a drainable fluid collection/abscess formation. 3. ?Prior cholecystectomy. Low insertion of cystic duct on the CBD.Prominent CBD measuring 0.8 cm in diameter, tapering towards the ampullawith no filling defects/choledocholithiasis. Diffuse hepatic steatosis withno focal lesions or intrahepatic biliary ductal dilatation. Diverticulosiswithout evidence of diverticulitis. Preliminary Report Dictated by Resident: Sonia Sanchez ?MD Larry., have reviewed this study and agree with theabove report.EXAM: MR ABDOMEN WO CONTRAST MRCP HISTORY: 50 years-old Male with acute on chronic pancreatitis. COMPARISON: CT abdomen pelvis with IV contrast 11/23/2020, MRI/MRCP1. TECHNIQUE: Multiplanar, multisequence, MR imaging of the abdomen wasperformed before and after administration of 15 mL IV ProHance. HeavilyT2-weighted MRCP images were also acquired for evaluation of the biliarytree. FINDINGS:Evaluation is limited by motion. LOWER THORAX: The lung bases are clear. LIVER: Hepatic parenchymal signal dropout on T2 phase imaging is suggestiveof diffuse hepatic steatosis. No focal hepatic lesions. No biliary ductaldilation. BILIARY TREE: Prior cholecystectomy. The cystic duct appears to attach tothe common bile duct within the pancreas. No ductal dilation or fillingdefects. SPLEEN: The spleen appears unremarkable. PANCREAS: Interval improvement in peripancreatic fat stranding whencompared to the prior CT from November 23, 2020. A small ill-defined focus ofnonenhancement is seen in the head, best visualized on 16:353, and mayrepresent a focus of necrotizing pancreatitis. No evidence of pancreaticdilatation or a drainable fluid collection/abscess formation. ADRENAL GLANDS: No adrenal masses are seen. KIDNEYS: No hydronephrosis, stones,or solid masses are visualized.Subcentimeter T2 hyperintense structures are likely cysts and too small tofurther characterize. PERITONEUM AND RETROPERITONEUM: No intra- abdominal free air or fluidcollection is visualized. GI TRACT: Diverticulosis without evidence of diverticulitis. LYMPH NODES: No enlarged intra-abdominal lymph nodes are found. VESSELS: Unremarkable. BONES AND SOFT TISSUES: No suspici ous lytic or sclerotic bony lesions arepresent. Spondylotic changes are manifested by ? ?. [facility], Radiant Results Inft User - 11/28/2020 1:50 PM CDT EXAM: MR ABDOMEN WO CONTRAST MRCPHISTORY: 50 years-old Male with acute on chronic pancreatiti s.COMPARISON: CT abdomen pelvis with IV contrast 11/23/2020, MRI/MRCP1.TECHNIQUE: Multiplanar, multisequence, MR imaging of the abdomen wasperformed before and after administration of 15 mL IV ProHance. HeavilyT2-weighted MRCP images were also acquired for evaluation of the biliarytree. FINDINGS:Evaluation is limited by motion.LOWER THORAX: The lung bases are clear.LIVER: Hepatic parenchymal signal dropout on T2 phase imaging is suggestiveof diffuse hepatic steatosis. No focal hepatic lesions. No biliary ductaldilation.BILIARY TREE: Prior cholecystectomy. The cystic duct appears to attach tothe common bile duct within the pancreas. No ductal dilation or fillingdefects.SPLEEN: The spleen appears unremarkable.PANCREAS: Interval improvement in peripancreatic fat stranding whencompared to theprior CT from November 23, 2020. A small ill-defined focus ofnonenhancement is seen in the head, best visualized on 16:353, and mayrepresent a focus of necrotizing pancreatitis. No evidence of pancreaticdilatation or a drainable fluid collection/abscess formation. ADRENAL GLANDS: No adrenal masses are seen.KIDNEYS: No hydronephrosis, stones, or solid masses are visualized.Subcentimeter T2 hyperintense structures are likely cysts and too small tofurther characterize.PERITONEUM AND RETROPERITONEUM: No intra-abdominal free air or fluidcollection is visualized. GI TRACT: Diverticulosis without evidence of diverticulitis.LYMPH NODES: No enlarged intra-abdominal lymph nodes are found.VESSELS: Unremarkable.BONES AND SOFT TISSUES: No suspicious lytic or sclerotic bony lesions arepresent. Spondylotic changes are manifested by .IMPRESSION1. Limited study due to patient's inability to hold breath.2. Inte rval improvement in peripancreatic fat stranding when compared tothe prior CT from November 23, 2020. A small ill-defined focus ofnonenhancement is seen in the head, best visualized on 16:353, and mayrepresent a focus of necrotizing pancreatitis. No evidence of pancreaticdilatation or a drainable fluid c ollection/abscess formation. 3. Prior cholecystectomy. Low insertion of cystic duct on the CBD.Prominent CBD measuring 0.8 cm in diameter, tapering towards the ampullawith no filling defects/choledocholithiasis. Diffuse hepatic steatosis withno focal lesions or intrahepatic biliary ductal dilatation. Diverticulosiswithout evidence of diverticulitis.Preliminary Report Dictated by Resident: Sonia Simeon MD., have reviewed this study and agree with theabove report.[facility] Test Item Value Reference Range Interpretation Comments MAGNESIUM (test code = 1893070601) 1.8 mg/dL 1.7-2.4 Lab Interpretation (test code = Normal 95411-9) [facility] Test Item Value Reference Range Interpretation Comments MAGNESIUM (test code = 5295977906) 1.8 mg/dL 1.7-2.4 Lab Interpretation (test code = Normal 30844-2) [facility]OLIC PAN[facility] ([id number])2020-11-28 11:20:09 Test Item Value Reference Range Interpretation Comments NA (test code = 134 mmol/L 135-145 L 4594279798) K (test code = 4.6 mmol/L 3.5-5.0 6220111848) CL (test code = 100 mmol/L 98-108 5411097160) CO2 TOTAL (test code = 28 mmol/L 23-31 3650259398) AGAP (test code = 2-16 5457017241) BUN (test code = 5 mg/dL 7-23 L 6730185873) GLUCOSE (test code = 93 mg/dL 70-110 5830185203) CREATININE (test code = 0.42 mg/dL 0.60-1.25 L 2571967522) TOTAL BILI (test code = 0.8 mg/dL 0.1-1.2 9352722905) CALCIUM (test code = 9.4 mg/dL 8.6-10.6 8638649707) T PROTEIN (test code = 6.2 g/dL 6.3-8.2 L 4500086796) ALBUMIN (test code = 3.3 g/dL 3.5-5.0 L 0821306643) ALK PHOS (test code = 185 U/L 34-122 H 1051009128) ALTv (test code = 100 U/L 5-50 H 1742-6) AST(SGOT) (test code = 67 U/L 13-40 H 1674819478) eGFR (test code = mL/min/1.73m2 1649611583) BERYL (test code = BERYL) Association of Glomerular Filtration Rate (GFR) and Staging of Kidney Disease* + --+ --+ ------+| GFR (mL/min/1.73 m2) ?| With Kidney Damage ?| ?Without Kidney Damage+ --------+ --------+ +| ?>90 ?| ?Stage one ?| ? Normal ?+ ---+ ---+ -------+| ?60-89 ?| ?Stage two ?| ? Decreased GFR ? + --+ --+ ------+| ?30-59 ?| ?Stage three ?| ? Stage three ? + --+ --+ ------+| ?15-29 ?| ?Stage four ? | ? Stage four ?+ ---+ ---+ -------+| ?<15 (or dialysis) ? ?| ?Stage five ? | ? Stage five ?+ ---+ ---+ -------+ *Each stage assumes the associated GFR level has been in effect for at least three months. ?Stages 1 to 5, with or without kidney disease, indicate chronic kidney disease. Notes: Determination of stages one and two (with eGFR >59mL/min/1.73 m2) requires estimation of kidney damage for at least three months as defined by structural or functional abnormalities of the kidney, manifested by either:Pathological abnormalities or Markers of kidney damage (including abnormalities in the composition of the blood or urine or abnormalities in imaging tests). Lab Interpretation Abnormal (test code = 87633-5) [facility]. METABOLIC PANEL ([id number])2020-11-28 11:20:09 Test Item Value Reference Range Interpretation Comments NA (test code = 134 mmol/L 135-145 L 6677224164) K (test code = 4.6 mmol/L 3.5-5.0 0481660214) CL (test code = 100 mmol/L 98-108 7986130009) CO2 TOTAL (test code = 28 mmol/L 23-31 0333748528) AGAP (test code = 2-16 7159224568) BUN (test code = 5 mg/dL 7-23 L 5998411265) GLUCOSE (test code = 93 mg/dL 70-110 0994467757) CREATININE (test code = 0.42 mg/dL 0.60-1.25 L 3359893866) TOTAL BILI (test code = 0.8 mg/dL 0.1-1.1 8432371380) CALCIUM (test code = 9.4 mg/dL 8.6-10.6 6162705136) T PROTEIN (test code = 6.2 g/dL 6.3-8.2 L 4338363687) ALBUMIN (test code = 3.3 g/dL 3.5-5.0 L 7606112200) ALK PHOS (test code = 185 U/L 34-122 H 3149132619) ALTv (test code = 100 U/L 5-50 H 1742-6) AST(SGOT) (test code = 67 U/L 13-40 H 5185093463) eGFR (test code = mL/min/1.73m2 5403453282) BERYL (test code = BERYL) Association of Glomerular Filtration Rate (GFR) and Staging of Kidney Disease* + --+ --+ ------+| GFR (mL/min/1.73 m2) ?| With Kidney Damage ?| ?Without Kidney Damage+ --------+ --------+ +| ?>90 ?| ?Stage one ?| ? Normal ?+ ---+ ---+ -------+| ?60-89 ?| ?Stage two ?| ? Decreased GFR ? + --+ --+ ------+| ?30-59 ?| ?Stage three ?| ? Stage three ? + --+ --+ ------+| ?15-29 ?| ?Stage four ? | ? Stage four ?+ ---+ ---+ -------+| ?<15 (or dialysis) ? ?| ?Stage five ? | ? Stage five ?+ ---+ ---+ -------+ *Each stage assumes the associated GFR level has been in effect for at least three months. ?Stages 1 to 5, with or without kidney disease, indicate chronic kidney disease. Notes: Determination of stages one and two (with eGFR >59mL/min/1.73 m2) requires estimation of kidney damage for at least three months as defined by structural or functional abnormalities of the kidney, manifested by either:Pathological abnormalities or Markers of kidney damage (including abnormalities in the composition of the blood or urine or abnormalities in imaging tests). Lab Interpretation Abnormal (test code = 61179-0) [facility] 11:19:49 Test Item Value Reference Range Interpretation Comments PHOSPHORUS (test code = 9359259199) 3.3 mg/dL 2.5-5.0 Lab Interpretation (test code = Normal 42111-8) [facility] 11:19:49 Test Item Value Reference Range Interpretation Comments PHOSPHORUS (test code = 6661130503) 3.3 mg/dL 2.5-5.0 Lab Interpretation (test code = Normal 02556-0) [facility] WITH [id number] 11:00:11 Test Item Value Reference Range Interpretation Comments WBC (test code = See_Comment [Automated 6690-2) message] The sy stem which generated this result transmitted reference range : 4.20 - 10.70 10*3/?L. The reference range was not used to interpret this result as normal/abnormal . RBC (test code = See_Comment L [Automated 789-8) message] The sy stem which generated this result transmitted reference range : 4.26 - 5.52 10*6/?L. The reference range was not used to interpret this result as normal/abnormal . HGB (test code = 13.9 g/dL 12.2-16.4 718-7) HCT (test code = 41.3 % 38.4-49.3 4544-3) MCV (test code = 98.3 fL 81.7-95.6 H 787-2) MCH (test code = 33.1 pg 26.1-32.7 H 785-6) MCHC (test code = 33.7 g/dL 31.2-35.0 786-4) RDW-SD (test code = 50.3 fL 38.5-51.6 64106-2) RDW-CV (test code = 13.9 % 12.1-15.4 788-0) PLT (test code = See_Comment [Automated 777-3) message] The sy stem which generated this result transmitted reference range : 150 - 328 10*3/ ?L. The reference r kevin was not used to interpret this result as normal/abnormal . MPV (test code = 10.5 fL 9.8-13.0 60078-3) NRBC/100 WBC (test See_Comment [Automat ed code = 5719589945) message] The system which generated this result transmitted reference range : 0.0 - 10.0 /100 WBCs. The refer ence range was not u sed to interpret th is result as normal/abnormal . NRBC x10^3 (test code <0.01 See_Comment [Auto mated = 8207348739) message] The s ystem which generated this result transmitted reference range : 10*3/?L. The reference range was not used to interpret this result as normal/abnormal . GRAN MAT (NEUT) % 72.0 % (test code = 770-8) IMM GRAN % (test code 1.80 % = 8698732386) LYMPH % (test code = 8.2 % 736-9) MONO % (test code = 14.6 % 5905-5) EOS % (test code = 2.3 % 713-8) BASO % (test code = 1.1 % 706-2) GRAN MAT x10^3(ANC) 5.29 10*3/uL 1.99-6.95 (test code = 7033968791) IMM GRAN x10^3 (test 0.13 10*3/uL 0.00-0.06 H code = 4733262474) LYMPH x10^3 (test code 0.60 10*3/uL 1.09-3.23 L = 731-0) MONO x10^3 (test code 1.07 10*3/uL 0.36-1.02 H = 742-7) EOS x10^3 (test code = 0.17 10*3/uL 0.06-0.53 711-2) BASO x10^3 (test code 0.08 10*3/uL 0.01-0.09 = 704-7) Lab Interpretation Abnormal (test code = 82800-3) [facility] WITH [id number] 11:00:11 Test Item Value Reference Range Interpretation Comments WBC (test code = See_Comment [Automated 6690-2) message] The sy stem which generated this result transmitted reference range : 4.20 - 10.70 10*3/?L. The reference range was not used to interpret this result as normal/abnormal . RBC (test code = See_Comment L [Automated 789-8) message] The sy stem which generated this result transmitted reference range : 4.26 - 5.52 10*6/?L. The reference range was not used to interpret this result as normal/abnormal . HGB (test code = 13.9 g/dL 12.2-16.4 718-7) HCT (test code = 41.3 % 38.4-49.3 4544-3) MCV (test code = 98.3 fL 81.7-95.6 H 787-2) MCH (test code = 33.1 pg 26.1-32.7 H 785-6) MCHC (test code = 33.7 g/dL 31.2-35.0 786-4) RDW-SD (test code = 50.3 fL 38.5-51.6 85504-7) RDW-CV (test code = 13.9 % 12.1-15.4 788-0) PLT (test code = See_Comment [Automated 777-3) message] The sy stem which generated this result transmitted reference range : 150 - 328 10*3/ ?L. The reference r kevin was not used to interpret this result as normal/abnormal . MPV (test code = 10.5 fL 9.8-13.0 58071-3) NRBC/100 WBC (test See_Comment [Automat ed code = 7443298697) message] The system which generated this result transmitted reference range : 0.0 - 10.0 /100 WBCs. The refer ence range was not u sed to interpret th is result as normal/abnormal . NRBC x10^3 (test code <0.01 See_Comment [Auto mated = 4733667000) message] The s ystem which generated this result transmitted reference range : 10*3/?L. The reference range was not used to interpret this result as normal/abnormal . GRAN MAT (NEUT) % 72.0 % (test code = 770-8) IMM GRAN % (test code 1.80 % = 8455776116) LYMPH % (test code = 8.2 % 736-9) MONO % (test code = 14.6 % 5905-5) EOS % (test code = 2.3 % 713-8) BASO % (test code = 1.1 % 706-2) GRAN MAT x10^3(ANC) 5.29 10*3/uL 1.99-6.95 (test code = 2668388853) IMM GRAN x10^3 (test 0.13 10*3/uL 0.00-0.06 H code = 7069282585) LYMPH x10^3 (test code 0.60 10*3/uL 1.09-3.23 L = 731-0) MONO x10^3 (test code 1.07 10*3/uL 0.36-1.02 H = 742-7) EOS x10^3 (test code = 0.17 10*3/uL 0.06-0.53 711-2) BASO x10^3 (test code 0.08 10*3/uL 0.01-0.09 = 704-7) Lab Interpretation Abnormal (test code = 72196-8) [facility]. METABOLIC PANEL ([id number])2020-11-27 10:05:52 Test Item Value Reference Range Interpretation Comments NA (test code = 133 mmol/L 135-145 L 9857275326) K (test code = 4.8 mmol/L 3.5-5.0 0057773461) CL (test code = 102 mmol/L 98-108 4666132054) CO2 TOTAL (test code = 28 mmol/L 23-31 0385595029) AGAP (test code = 2-16 1671442577) BUN (test code = 2 mg/dL 7-23 L 1624703414) GLUCOSE (test code = 86 mg/dL 70-110 5336468773) CREATININE (test code = 0.43 mg/dL 0.60-1.25 L 4181939460) TOTAL BILI (test code = 1.0 mg/dL 0.1-1.0 8563538688) CALCIUM (test code = 8.3 mg/dL 8.6-10.6 L 8805091175) T PROTEIN (test code = 5.9 g/dL 6.3-8.2 L 2430632895) ALBUMIN (test code = 3.0 g/dL 3.5-5.0 L 1543868093) ALK PHOS (test code = 175 U/L 34-122 H 6229504160) ALTv (test code = 120 U/L 5-50 H 1742-6) AST(SGOT) (test code = 84 U/L 13-40 H 8775398698) eGFR (test code = mL/min/1.73m2 5217756295) BERYL (test code = BERYL) Association of Glomerular Filtration Rate (GFR) and Staging of Kidney Disease* + --+ --+ ------+| GFR (mL/min/1.73 m2) ?| With Kidney Damage ?| ?Without Kidney Damage+ --------+ --------+ +| ?>90 ?| ?Stage one ?| ? Normal ?+ ---+ ---+ -------+| ?60-89 ?| ?Stage two ?| ? Decreased GFR ? + --+ --+ ------+| ?30-59 ?| ?Stage three ?| ? Stage three ? + --+ --+ ------+| ?15-29 ?| ?Stage four ? | ? Stage four ?+ ---+ ---+ -------+| ?<15 (or dialysis) ? ?| ?Stage five ? | ? Stage five ?+ ---+ ---+ -------+ *Each stage assumes the associated GFR level has been in effect for at least three months. ?Stages 1 to 5, with or without kidney disease, indicate chronic kidney disease. Notes: Determination of stages one and two (with eGFR >59mL/min/1.73 m2) requires estimation of kidney damage for at least three months as defined by structural or functional abnormalities of the kidney, manifested by either:Pathological abnormalities or Markers of kidney damage (including abnormalities in the composition of the blood or urine or abnormalities in imaging tests). Lab Interpretation Abnormal (test code = 05356-5) [facility]. METABOLIC PANEL ([id number])2020-11-27 10:05:52 Test Item Value Reference Range Interpretation Comments NA (test code = 133 mmol/L 135-145 L 4978842331) K (test code = 4.8 mmol/L 3.5-5.0 2928430969) CL (test code = 102 mmol/L 98-108 3785073295) CO2 TOTAL (test code = 28 mmol/L 23-31 6595526398) AGAP (test code = 2-16 9041336387) BUN (test code = 2 mg/dL 7-23 L 5869280309) GLUCOSE (test code = 86 mg/dL 70-110 0574240006) CREATININE (test code = 0.43 mg/dL 0.60-1.25 L 2237989584) TOTAL BILI (test code = 1.0 mg/dL 0.1-1.4 9816386006) CALCIUM (test code = 8.3 mg/dL 8.6-10.6 L 9621741394) T PROTEIN (test code = 5.9 g/dL 6.3-8.2 L 3519014010) ALBUMIN (test code = 3.0 g/dL 3.5-5.0 L 6699108111) ALK PHOS (test code = 175 U/L 34-122 H 5728197216) ALTv (test code = 120 U/L 5-50 H 1742-6) AST(SGOT) (test code = 84 U/L 13-40 H 6574640015) eGFR (test code = mL/min/1.73m2 1727656172) BERYL (test code = BERYL) Association of Glomerular Filtration Rate (GFR) and Staging of Kidney Disease* + --+ --+ ------+| GFR (mL/min/1.73 m2) ?| With Kidney Damage ?| ?Without Kidney Damage+ --------+ --------+ +| ?>90 ?| ?Stage one ?| ? Normal ?+ ---+ ---+ -------+| ?60-89 ?| ?Stage two ?| ? Decreased GFR ? + --+ --+ ------+| ?30-59 ?| ?Stage three ?| ? Stage three ? + --+ --+ ------+| ?15-29 ?| ?Stage four ? | ? Stage four ?+ ---+ ---+ -------+| ?<15 (or dialysis) ? ?| ?Stage five ? | ? Stage five ?+ ---+ ---+ -------+ *Each stage assumes the associated GFR level has been in effect for at least three months. ?Stages 1 to 5, with or without kidney disease, indicate chronic kidney disease. Notes: Determination of stages one and two (with eGFR >59mL/min/1.73 m2) requires estimation of kidney damage for at least three months as defined by structural or functional abnormalities of the kidney, manifested by either:Pathological abnormalities or Markers of kidney damage (including abnormalities in the composition of the blood or urine or abnormalities in imaging tests). Lab Interpretation Abnormal (test code = 45766-2) [facility] 09:49:38 Test Item Value Reference Range Interpretation Comments MAGNESIUM (test code = 1892829673) 2.0 mg/dL 1.7-2.4 Lab Interpretation (test code = Normal 95645-6) [facility]21-[facility]-29 09:49:38 Test Item Value Reference Range Interpretation Comments MAGNESIUM (test code = 8549574551) 2.0 mg/dL 1.7-2.4 Lab Interpretation (test code = Normal 82572-8) [facility]21-[facility]29 09:49:22 Test Item Value Reference Range Interpretation Comments PHOSPHORUS (test code = 2610709611) 2.2 mg/dL 2.5-5.0 L Lab Interpretation (test code = Abnormal 18651-4) [facility]21-[facility]29 09:49:22 Test Item Value Reference Range Interpretation Comments PHOSPHORUS (test code = 2807838842) 2.2 mg/dL 2.5-5.0 L Lab Interpretation (test code = Abnormal 07413-7) [facility]21[facility]29 09:49:02 Test Item Value Reference Range Interpretation Comments LIPASE (test code = 8221001852) 172 U/L 0-220 Lab Interpretation (test code = Normal 24419-6) [facility]21-[facility]-29 09:49:02 Test Item Value Reference Range Interpretation Comments LIPASE (test code = 8293426837) 172 U/L 0-220 Lab Interpretation (test code = Normal 06639-6) [facility] WITH [id number] 09:22:20 Test Item Value Reference Range Interpretation Comments WBC (test code = See_Comment [Automated 6690-2) message] The sy stem which generated this result transmitted reference range : 4.20 - 10.70 10*3/?L. The reference range was not used to interpret this result as normal/abnormal . RBC (test code = See_Comment L [Automated 789-8) message] The sy stem which generated this result transmitted reference range : 4.26 - 5.52 10*6/?L. The reference range was not used to interpret this result as normal/abnormal . HGB (test code = 12.9 g/dL 12.2-16.4 718-7) HCT (test code = 39.9 % 38.4-49.3 4544-3) MCV (test code = 100.0 fL 81.7-95.6 H 787-2) MCH (test code = 32.3 pg 26.1-32.7 785-6) MCHC (test code = 32.3 g/dL 31.2-35.0 786-4) RDW-SD (test code = 51.0 fL 38.5-51.6 13560-9) RDW-CV (test code = 13.7 % 12.1-15.4 788-0) PLT (test code = See_Comment L [Automated 777-3) message] The sy stem which generated this result transmitted reference range : 150 - 328 10*3/ ?L. The reference r kevin was not used to interpret this result as normal/abnormal . MPV (test code = 11.0 fL 9.8-13.0 89745-1) NRBC/100 WBC (test See_Comment [Automat ed code = 5919760610) message] The system which generated this result transmitted reference range : 0.0 - 10.0 /100 WBCs. The refer ence range was not u sed to interpret th is result as normal/abnormal . NRBC x10^3 (test code <0.01 See_Comment [Auto mated = 0834735905) message] The s ystem which generated this result transmitted reference range : 10*3/?L. The reference range was not used to interpret this result as normal/abnormal . GRAN MAT (NEUT) % 72.4 % (test code = 770-8) IMM GRAN % (test code 1.30 % = 6512756844) LYMPH % (test code = 10.0 % 736-9) MONO % (test code = 13.2 % 5905-5) EOS % (test code = 2.4 % 713-8) BASO % (test code = 0.7 % 706-2) GRAN MAT x10^3(ANC) 5.41 10*3/uL 1.99-6.95 (test code = 8739314894) IMM GRAN x10^3 (test 0.10 10*3/uL 0.00-0.06 H code = 0167724184) LYMPH x10^3 (test code 0.75 10*3/uL 1.09-3.23 L = 731-0) MONO x10^3 (test code 0.99 10*3/uL 0.36-1.02 = 742-7) EOS x10^3 (test code = 0.18 10*3/uL 0.06-0.53 711-2) BASO x10^3 (test code 0.05 10*3/uL 0.01-0.09 = 704-7) Lab Interpretation Abnormal (test code = 52411-5) [facility] WITH [id number] 09:22:20 Test Item Value Reference Range Interpretation Comments WBC (test code = See_Comment [Automated 6690-2) message] The sy stem which generated this result transmitted reference range : 4.20 - 10.70 10*3/?L. The reference range was not used to interpret this result as normal/abnormal . RBC (test code = See_Comment L [Automated 739-8) message] The sy stem which generated this result transmitted reference range : 4.26 - 5.52 10*6/?L. The reference range was not used to interpret this result as normal/abnormal . HGB (test code = 12.9 g/dL 12.2-16.4 718-7) HCT (test code = 39.9 % 38.4-49.3 4544-3) MCV (test code = 100.0 fL 81.7-95.6 H 787-2) MCH (test code = 32.3 pg 26.1-32.7 785-6) MCHC (test code = 32.3 g/dL 31.2-35.0 786-4) RDW-SD (test code = 51.0 fL 38.5-51.6 15447-3) RDW-CV (test code = 13.7 % 12.1-15.4 788-0) PLT (test code = See_Comment L [Automated 777-3) message] The sy stem which generated this result transmitted reference range : 150 - 328 10*3/ ?L. The reference r kevin was not used to interpret this result as normal/abnormal . MPV (test code = 11.0 fL 9.8-13.0 91854-0) NRBC/100 WBC (test See_Comment [Automat ed code = 6258243866) message] The system which generated this result transmitted reference range : 0.0 - 10.0 /100 WBCs. The refer ence range was not u sed to interpret th is result as normal/abnormal . NRBC x10^3 (test code <0.01 See_Comment [Auto mated = 5653976792) message] The s ystem which generated this result transmitted reference range : 10*3/?L. The reference range was not used to interpret this result as normal/abnormal . GRAN MAT (NEUT) % 72.4 % (test code = 770-8) IMM GRAN % (test code 1.30 % = 5293246179) LYMPH % (test code = 10.0 % 736-9) MONO % (test code = 13.2 % 5905-5) EOS % (test code = 2.4 % 713-8) BASO % (test code = 0.7 % 706-2) GRAN MAT x10^3(ANC) 5.41 10*3/uL 1.99-6.95 (test code = 2120053413) IMM GRAN x10^3 (test 0.10 10*3/uL 0.00-0.06 H code = 5187592791) LYMPH x10^3 (test code 0.75 10*3/uL 1.09-3.23 L = 731-0) MONO x10^3 (test code 0.99 10*3/uL 0.36-1.02 = 742-7) EOS x10^3 (test code = 0.18 10*3/uL 0.06-0.53 711-2) BASO x10^3 (test code 0.05 10*3/uL 0.01-0.09 = 704-7) Lab Interpretation Abnormal (test code = 42964-9) [facility] [id number] 19:53:18 Test Item Value Reference Range Interpretation Comments HCV Ab (test code = 86199-4) Negative HCV Semi-Quantitative (test code = 72736-6) [facility] [id number] 19:53:18 Test Item Value Reference Range Interpretation Comments HCV Ab (test code = 19138-7) Negative HCV Semi-Quantitative (test code = 14560-1) [facility] A VIRUS ANTIBODY [id number] 19:41:40 Test Item Value Reference Range Interpretation Comments HAVM Negative Semi-Quantitative (test code = 03811-3) BERYL (test code = HAVAb IgM Interpretative BERYL) Information: Reactive greater than or equal to 1.2 Biotin has been reported to cause a negative bias, interpret results relative to patient's use of biotin. [facility] A VIRUS ANTIBODY [id number] 19:41:40 Test Item Value Reference Range Interpretation Comments HAVM Negative Semi-Quantitative (test code = 17665-2) BERYL (test code = HAVAb IgM Interpretative BERYL) Information: Reactive greater than or equal to 1.2 Biotin has been reported to cause a negative bias, interpret results relative to patient's use of biotin. [facility] B CORE ANTIBODY [id number] 19:41:35 Test Item Value Reference Range Interpretation Comments HBCM Negative Semi-Quantitative (test code = 55786-8) BERYL (test code = Biotin has been reported BERYL) to cause a negative bias, interpret results relative to patient's use of biotin. [facility] B CORE ANTIBODY [id number] 19:41:35 Test Item Value Reference Range Interpretation Comments HBCM Negative Semi-Quantitative (test code = 44154-6) BERYL (test code = Biotin has been reported BERYL) to cause a negative bias, interpret results relative to patient's use of biotin. [facility] B SURFACE [id number] 19:35:57 Test Item Value Reference Range Interpretation Comments HBsAg Semi-Quantitative (test code = Negative Negative 5195-3) [facility] B SURFACE [id number] 19:35:57 Test Item Value Reference Range Interpretation Comments HBsAg Semi-Quantitative (test code = Negative Negative 5195-3) [facility] WITH [id number] 11:41:29 Test Item Value Reference Range Interpretation Comments WBC (test code = See_Comment [Automated 6690-2) message] The sy stem which generated this result transmitted reference range : 4.20 - 10.70 10*3/?L. The reference range was not used to interpret this result as normal/abnormal . RBC (test code = See_Comment L [Automated 789-8) message] The sy stem which generated this result transmitted reference range : 4.26 - 5.52 10*6/?L. The reference range was not used to interpret this result as normal/abnormal . HGB (test code = 13.7 g/dL 12.2-16.4 718-7) HCT (test code = 40.7 % 38.4-49.3 4544-3) MCV (test code = 98.5 fL 81.7-95.6 H 787-2) MCH (test code = 33.2 pg 26.1-32.7 H 785-6) MCHC (test code = 33.7 g/dL 31.2-35.0 786-4) RDW-SD (test code = 50.4 fL 38.5-51.6 13343-0) RDW-CV (test code = 13.8 % 12.1-15.4 788-0) PLT (test code = See_Comment L [Automated 777-3) message] The sy stem which generated this result transmitted reference range : 150 - 328 10*3/ ?L. The reference r kevin was not used to interpret this result as normal/abnormal . MPV (test code = 10.5 fL 9.8-13.0 10037-4) NRBC/100 WBC (test See_Comment [Automat ed code = 6595985549) message] The system which generated this result transmitted reference range : 0.0 - 10.0 /100 WBCs. The refer ence range was not u sed to interpret th is result as normal/abnormal . NRBC x10^3 (test code <0.01 See_Comment [Auto mated = 1625908990) message] The s ystem which generated this result transmitted reference range : 10*3/?L. The reference range was not used to interpret this result as normal/abnormal . GRAN MAT (NEUT) % 78.9 % (test code = 770-8) IMM GRAN % (test code 1.10 % = 5329955253) LYMPH % (test code = 7.3 % 736-9) MONO % (test code = 10.9 % 5905-5) EOS % (test code = 1.3 % 713-8) BASO % (test code = 0.5 % 706-2) GRAN MAT x10^3(ANC) 7.72 10*3/uL 1.99-6.95 H (test code = 3602111651) IMM GRAN x10^3 (test 0.11 10*3/uL 0.00-0.06 H code = 5428679809) LYMPH x10^3 (test code 0.71 10*3/uL 1.09-3.23 L = 731-0) MONO x10^3 (test code 1.07 10*3/uL 0.36-1.02 H = 742-7) EOS x10^3 (test code = 0.13 10*3/uL 0.06-0.53 711-2) BASO x10^3 (test code 0.05 10*3/uL 0.01-0.09 = 704-7) Lab Interpretation Abnormal (test code = 83241-8) [facility] WITH [id number] 11:41:29 Test Item Value Reference Range Interpretation Comments WBC (test code = See_Comment [Automated 6690-2) message] The sy stem which generated this result transmitted reference range : 4.20 - 10.70 10*3/?L. The reference range was not used to interpret this result as normal/abnormal . RBC (test code = See_Comment L [Automated 789-8) message] The sy stem which generated this result transmitted reference range : 4.26 - 5.52 10*6/?L. The reference range was not used to interpret this result as normal/abnormal . HGB (test code = 13.7 g/dL 12.2-16.4 718-7) HCT (test code = 40.7 % 38.4-49.3 4544-3) MCV (test code = 98.5 fL 81.7-95.6 H 787-2) MCH (test code = 33.2 pg 26.1-32.7 H 785-6) MCHC (test code = 33.7 g/dL 31.2-35.0 786-4) RDW-SD (test code = 50.4 fL 38.5-51.6 55192-5) RDW-CV (test code = 13.8 % 12.1-15.4 788-0) PLT (test code = See_Comment L [Automated 777-3) message] The sy stem which generated this result transmitted reference range : 150 - 328 10*3/ ?L. The reference r kevin was not used to interpret this result as normal/abnormal . MPV (test code = 10.5 fL 9.8-13.0 41658-9) NRBC/100 WBC (test See_Comment [Automat ed code = 2487960328) message] The system which generated this result transmitted reference range : 0.0 - 10.0 /100 WBCs. The refer ence range was not u sed to interpret th is result as normal/abnormal . NRBC x10^3 (test code <0.01 See_Comment [Auto mated = 4393146394) message] The s ystem which generated this result transmitted reference range : 10*3/?L. The reference range was not used to interpret this result as normal/abnormal . GRAN MAT (NEUT) % 78.9 % (test code = 770-8) IMM GRAN % (test code 1.10 % = 4380611102) LYMPH % (test code = 7.3 % 736-9) MONO % (test code = 10.9 % 5905-5) EOS % (test code = 1.3 % 713-8) BASO % (test code = 0.5 % 706-2) GRAN MAT x10^3(ANC) 7.72 10*3/uL 1.99-6.95 H (test code = 2184076162) IMM GRAN x10^3 (test 0.11 10*3/uL 0.00-0.06 H code = 4984888861) LYMPH x10^3 (test code 0.71 10*3/uL 1.09-3.23 L = 731-0) MONO x10^3 (test code 1.07 10*3/uL 0.36-1.02 H = 742-7) EOS x10^3 (test code = 0.13 10*3/uL 0.06-0.53 711-2) BASO x10^3 (test code 0.05 10*3/uL 0.01-0.09 = 704-7) Lab Interpretation Abnormal (test code = 61902-4) [facility] Test Item Value Reference Range Interpretation Comments MAGNESIUM (test code = 0549786148) 1.4 mg/dL 1.7-2.4 L Lab Interpretation (test code = Abnormal 23772-6) [facility] Test Item Value Reference Range Interpretation Comments MAGNESIUM (test code = 0324164478) 1.4 mg/dL 1.7-2.4 L Lab Interpretation (test code = Abnormal 23701-2) [facility] ([id number])2020-11-26 11:29:26 Test Item Value Reference Range Interpretation Comments NA (test code = 134 mmol/L 135-145 L 4594744657) K (test code = 3.8 mmol/L 3.5-5.0 2790118674) CL (test code = 99 mmol/L 98-108 2288285364) CO2 TOTAL (test code = 28 mmol/L 23-31 7883610020) AGAP (test code = 2-16 3189119126) BUN (test code = 4 mg/dL 7-23 L 5616025664) GLUCOSE (test code = 76 mg/dL 70-110 0842473880) CREATININE (test code = 0.45 mg/dL 0.60-1.25 L 2515951547) TOTAL BILI (test code = 1.6 mg/dL 0.1-1.1 H 4063651576) CALCIUM (test code = 8.7 mg/dL 8.6-10.6 2182326157) T PROTEIN (test code = 5.8 g/dL 6.3-8.2 L 4182067229) ALBUMIN (test code = 3.0 g/dL 3.5-5.0 L 1477392826) ALK PHOS (test code = 215 U/L 34-122 H 6099835508) ALTv (test code = 170 U/L 5-50 H 1742-6) AST(SGOT) (test code = 201 U/L 13-40 H 0933975650) eGFR (test code = mL/min/1.73m2 3561656816) BERYL (test code = BERYL) Association of Glomerular Filtration Rate (GFR) and Staging of Kidney Disease* + --+ --+ ------+| GFR (mL/min/1.73 m2) ?| With Kidney Damage ?| ?Without Kidney Damage+ --------+ --------+ +| ?>90 ?| ?Stage one ?| ? Normal ?+ ---+ ---+ -------+| ?60-89 ?| ?Stage two ?| ? Decreased GFR ? + --+ --+ ------+| ?30-59 ?| ?Stage three ?| ? Stage three ? + --+ --+ ------+| ?15-29 ?| ?Stage four ? | ? Stage four ?+ ---+ ---+ -------+| ?<15 (or dialysis) ? ?| ?Stage five ? | ? Stage five ?+ ---+ ---+ -------+ *Each stage assumes the associated GFR level has been in effect for at least three months. ?Stages 1 to 5, with or without kidney disease, indicate chronic kidney disease. Notes: Determination of stages one and two (with eGFR >59mL/min/1.73 m2) requires estimation of kidney damage for at least three months as defined by structural or functional abnormalities of the kidney, manifested by either:Pathological abnormalities or Markers of kidney damage (including abnormalities in the composition of the blood or urine or abnormalities in imaging tests). Lab Interpretation Abnormal (test code = 84363-4) [facility]. METABOLIC PANEL ([id number])2020-11-26 11:29:26 Test Item Value Reference Range Interpretation Comments NA (test code = 134 mmol/L 135-145 L 8054136446) K (test code = 3.8 mmol/L 3.5-5.0 0643082047) CL (test code = 99 mmol/L 98-108 8565302747) CO2 TOTAL (test code = 28 mmol/L 23-31 3605232232) AGAP (test code = 2-16 7422886944) BUN (test code = 4 mg/dL 7-23 L 7701759037) GLUCOSE (test code = 76 mg/dL 70-110 3051534055) CREATININE (test code = 0.45 mg/dL 0.60-1.25 L 2940814799) TOTAL BILI (test code = 1.6 mg/dL 0.1-1.1 H 6574963823) CALCIUM (test code = 8.7 mg/dL 8.6-10.6 4586291368) T PROTEIN (test code = 5.8 g/dL 6.3-8.2 L 1701648478) ALBUMIN (test code = 3.0 g/dL 3.5-5.0 L 8831754015) ALK PHOS (test code = 215 U/L 34-122 H 7601316842) ALTv (test code = 170 U/L 5-50 H 1742-6) AST(SGOT) (test code = 201 U/L 13-40 H 7064206875) eGFR (test code = mL/min/1.73m2 0367915087) BERYL (test code = BERYL) Association of Glomerular Filtration Rate (GFR) and Staging of Kidney Disease* + --+ --+ ------+| GFR (mL/min/1.73 m2) ?| With Kidney Damage ?| ?Without Kidney Damage+ --------+ --------+ +| ?>90 ?| ?Stage one ?| ? Normal ?+ ---+ ---+ -------+| ?60-89 ?| ?Stage two ?| ? Decreased GFR ? + --+ --+ ------+| ?30-59 ?| ?Stage three ?| ? Stage three ? + --+ --+ ------+| ?15-29 ?| ?Stage four ? | ? Stage four ?+ ---+ ---+ -------+| ?<15 (or dialysis) ? ?| ?Stage five ? | ? Stage five ?+ ---+ ---+ -------+ *Each stage assumes the associated GFR level has been in effect for at least three months. ?Stages 1 to 5, with or without kidney disease, indicate chronic kidney disease. Notes: Determination of stages one and two (with eGFR >59mL/min/1.73 m2) requires estimation of kidney damage for at least three months as defined by structural or functional abnormalities of the kidney, manifested by either:Pathological abnormalities or Markers of kidney damage (including abnormalities in the composition of the blood or urine or abnormalities in imaging tests). Lab Interpretation Abnormal (test code = 72977-6) [facility] 11:29:10 Test Item Value Reference Range Interpretation Comments PHOSPHORUS (test code = 3796064183) 3.0 mg/dL 2.5-5.0 Lab Interpretation (test code = Normal 09366-4) [facility] 11:29:10 Test Item Value Reference Range Interpretation Comments PHOSPHORUS (test code = 0787545176) 3.0 mg/dL 2.5-5.0 Lab Interpretation (test code = Normal 07377-3) [facility] 11:28:50 Test Item Value Reference Range Interpretation Comments LIPASE (test code = 1605584994) 195 U/L 0-220 Lab Interpretation (test code = Normal 19795-1) [facility] 11:28:50 Test Item Value Reference Range Interpretation Comments LIPASE (test code = 5575545959) 195 U/L 0-220 Lab Interpretation (test code = Normal 78863-4) [facility] [id number] 23:28:12 Test Item Value Reference Range Interpretation Comments CK (test code = 7515363541) 26 U/L 33-194 L Lab Interpretation (test code = Abnormal 93847-1) [facility] [id number] 23:28:12 Test Item Value Reference Range Interpretation Comments CK (test code = 2338482195) 26 U/L 33-194 L Lab Interpretation (test code = Abnormal 55310-3) [facility] MET[facility]OLIC PANEL (17801)2020-11-25 14:21:27 Test Item Value Reference Range Interpretation Comments NA (test code = 132 mmol/L 135-145 L 6942637250) K (test code = 3.2 mmol/L 3.5-5.0 L 4867441501) CL (test code = 96 mmol/L 98-108 L 9634201156) CO2 TOTAL (test code = 27 mmol/L 23-31 0605590599) AGAP (test code = 2-16 5642230722) BUN (test code = 3 mg/dL 7-23 L 0708244351) GLUCOSE (test code = 77 mg/dL 70-110 5395992333) CREATININE (test code = 0.41 mg/dL 0.60-1.25 L 1388533958) TOTAL BILI (test code = 1.8 mg/dL 0.1-1.1 H 6331648099) CALCIUM (test code = 8.6 mg/dL 8.6-10.6 6088550163) T PROTEIN (test code = 5.4 g/dL 6.3-8.2 L 2527631458) ALBUMIN (test code = 3.1 g/dL 3.5-5.0 L 7470239903) ALK PHOS (test code = 212 U/L 34-122 H 9128539251) ALTv (test code = 234 U/L 5-50 H 1742-6) AST(SGOT) (test code = 366 U/L 13-40 H 9870423530) eGFR (test code = mL/min/1.73m2 4921567013) BERYL (test code = BERYL) Association of Glomerular Filtration Rate (GFR) and Staging of Kidney Disease* + --+ --+ ------+| GFR (mL/min/1.73 m2) ?| With Kidney Damage ?| ?Without Kidney Damage+ --------+ --------+ +| ?>90 ?| ?Stage one ?| ? Normal ?+ ---+ ---+ -------+| ?60-89 ?| ?Stage two ?| ? Decreased GFR ? + --+ --+ ------+| ?30-59 ?| ?Stage three ?| ? Stage three ? + --+ --+ ------+| ?15-29 ?| ?Stage four ? | ? Stage four ?+ ---+ ---+ -------+| ?<15 (or dialysis) ? ?| ?Stage five ? | ? Stage five ?+ ---+ ---+ -------+ *Each stage assumes the associated GFR level has been in effect for at least three months. ?Stages 1 to 5, with or without kidney disease, indicate chronic kidney disease. Notes: Determination of stages one and two (with eGFR >59mL/min/1.73 m2) requires estimation of kidney damage for at least three months as defined by structural or functional abnormalities of the kidney, manifested by either:Pathological abnormalities or Markers of kidney damage (including abnormalities in the composition of the blood or urine or abnormalities in imaging tests). Lab Interpretation Abnormal (test code = 02624-6) [facility]. METABOLIC PANEL (21763)2020-11-25 14:21:27 Test Item Value Reference Range Interpretation Comments NA (test code = 132 mmol/L 135-145 L 0463254556) K (test code = 3.2 mmol/L 3.5-5.0 L 6814344619) CL (test code = 96 mmol/L 98-108 L 2831025191) CO2 TOTAL (test code = 27 mmol/L 23-31 3103955438) AGAP (test code = 2-16 9138633372) BUN (test code = 3 mg/dL 7-23 L 8213180627) GLUCOSE (test code = 77 mg/dL 70-110 5517031645) CREATININE (test code = 0.41 mg/dL 0.60-1.25 L 4601176016) TOTAL BILI (test code = 1.8 mg/dL 0.1-1.1 H 2041078994) CALCIUM (test code = 8.6 mg/dL 8.6-10.6 8726284298) T PROTEIN (test code = 5.4 g/dL 6.3-8.2 L 8225284138) ALBUMIN (test code = 3.1 g/dL 3.5-5.0 L 5844961687) ALK PHOS (test code = 212 U/L 34-122 H 4170261699) ALTv (test code = 234 U/L 5-50 H 1742-6) AST(SGOT) (test code = 366 U/L 13-40 H 8769415909) eGFR (test code = mL/min/1.73m2 4718437959) BERYL (test code = BERYL) Association of Glomerular Filtration Rate (GFR) and Staging of Kidney Disease* + --+ --+ ------+| GFR (mL/min/1.73 m2) ?| With Kidney Damage ?| ?Without Kidney Damage+ --------+ --------+ +| ?>90 ?| ?Stage one ?| ? Normal ?+ ---+ ---+ -------+| ?60-89 ?| ?Stage two ?| ? Decreased GFR ? + --+ --+ ------+| ?30-59 ?| ?Stage three ?| ? Stage three ? + --+ --+ ------+| ?15-29 ?| ?Stage four ? | ? Stage four ?+ ---+ ---+ -------+| ?<15 (or dialysis) ? ?| ?Stage five ? | ? Stage five ?+ ---+ ---+ -------+ *Each stage assumes the associated GFR level has been in effect for at least three months. ?Stages 1 to 5, with or without kidney disease, indicate chronic kidney disease. Notes: Determination of stages one and two (with eGFR >59mL/min/1.73 m2) requires estimation of kidney damage for at least three months as defined by structural or functional abnormalities of the kidney, manifested by either:Pathological abnormalities or Markers of kidney damage (including abnormalities in the composition of the blood or urine or abnormalities in imaging tests). Lab Interpretation Abnormal (test code = 01588-3) [facility] 12:19:15 Test Item Value Reference Range Interpretation Comments LIPASE (test code = 3484528240) 345 U/L 0-220 H Lab Interpretation (test code = Abnormal 71567-8) [facility] 12:19:15 Test Item Value Reference Range Interpretation Comments LIPASE (test code = 9622409874) 345 U/L 0-220 H Lab Interpretation (test code = Abnormal 14248-9) [facility] WITH [id number] 10:37:46 Test Item Value Reference Range Interpretation Comments WBC (test code = See_Comment [Automated 6690-2) message] The sy stem which generated this result transmitted reference range : 4.20 - 10.70 10*3/?L. The reference range was not used to interpret this result as normal/abnormal . RBC (test code = See_Comment [Automated 789-8) message] The sy stem which generated this result transmitted reference range : 4.26 - 5.52 10*6/?L. The reference range was not used to interpret this result as normal/abnormal . HGB (test code = 15.2 g/dL 12.2-16.4 718-7) HCT (test code = 44.6 % 38.4-49.3 4544-3) MCV (test code = 97.2 fL 81.7-95.6 H 787-2) MCH (test code = 33.1 pg 26.1-32.7 H 785-6) MCHC (test code = 34.1 g/dL 31.2-35.0 786-4) RDW-SD (test code = 49.5 fL 38.5-51.6 86243-3) RDW-CV (test code = 14.1 % 12.1-15.4 788-0) PLT (test code = See_Comment [Automated 777-3) message] The sy stem which generated this result transmitted reference range : 150 - 328 10*3/ ?L. The reference r kevin was not used to interpret this result as normal/abnormal . MPV (test code = 10.7 fL 9.8-13.0 57294-0) NRBC/100 WBC (test See_Comment [Automat ed code = 2212687429) message] The system which generated this result transmitted reference range : 0.0 - 10.0 /100 WBCs. The refer ence range was not u sed to interpret th is result as normal/abnormal . NRBC x10^3 (test code <0.01 See_Comment [Auto mated = 4626619022) message] The s ystem which generated this result transmitted reference range : 10*3/?L. The reference range was not used to interpret this result as normal/abnormal . GRAN MAT (NEUT) % 86.7 % (test code = 770-8) IMM GRAN % (test code 1.00 % = 3641349772) LYMPH % (test code = 4.7 % 736-9) MONO % (test code = 6.2 % 5905-5) EOS % (test code = 1.0 % 713-8) BASO % (test code = 0.4 % 706-2) GRAN MAT x10^3(ANC) 8.80 10*3/uL 1.99-6.95 H (test code = 7953477425) IMM GRAN x10^3 (test 0.10 10*3/uL 0.00-0.06 H code = 1354013453) LYMPH x10^3 (test code 0.48 10*3/uL 1.09-3.23 L = 731-0) MONO x10^3 (test code 0.63 10*3/uL 0.36-1.02 = 742-7) EOS x10^3 (test code = 0.10 10*3/uL 0.06-0.53 711-2) BASO x10^3 (test code 0.04 10*3/uL 0.01-0.09 = 704-7) Lab Interpretation Abnormal (test code = 37883-8) [facility] WITH [id number] 10:37:46 Test Item Value Reference Range Interpretation Comments WBC (test code = See_Comment [Automated 0090-2) message] The sy stem which generated this result transmitted reference range : 4.20 - 10.70 10*3/?L. The reference range was not used to interpret this result as normal/abnormal . RBC (test code = See_Comment [Automated 319-8) message] The sy stem which generated this result transmitted reference range : 4.26 - 5.52 10*6/?L. The reference range was not used to interpret this result as normal/abnormal . HGB (test code = 15.2 g/dL 12.2-16.4 718-7) HCT (test code = 44.6 % 38.4-49.3 4544-3) MCV (test code = 97.2 fL 81.7-95.6 H 787-2) MCH (test code = 33.1 pg 26.1-32.7 H 785-6) MCHC (test code = 34.1 g/dL 31.2-35.0 786-4) RDW-SD (test code = 49.5 fL 38.5-51.6 56371-5) RDW-CV (test code = 14.1 % 12.1-15.4 788-0) PLT (test code = See_Comment [Automated 777-3) message] The sy stem which generated this result transmitted reference range : 150 - 328 10*3/ ?L. The reference r kevin was not used to interpret this result as normal/abnormal . MPV (test code = 10.7 fL 9.8-13.0 02791-1) NRBC/100 WBC (test See_Comment [Automat ed code = 1588214348) message] The system which generated this result transmitted reference range : 0.0 - 10.0 /100 WBCs. The refer ence range was not u sed to interpret th is result as normal/abnormal . NRBC x10^3 (test code <0.01 See_Comment [Auto mated = 1868077445) message] The s ystem which generated this result transmitted reference range : 10*3/?L. The reference range was not used to interpret this result as normal/abnormal . GRAN MAT (NEUT) % 86.7 % (test code = 770-8) IMM GRAN % (test code 1.00 % = 3805670106) LYMPH % (test code = 4.7 % 736-9) MONO % (test code = 6.2 % 5905-5) EOS % (test code = 1.0 % 713-8) BASO % (test code = 0.4 % 706-2) GRAN MAT x10^3(ANC) 8.80 10*3/uL 1.99-6.95 H (test code = 2082000161) IMM GRAN x10^3 (test 0.10 10*3/uL 0.00-0.06 H code = 0015311951) LYMPH x10^3 (test code 0.48 10*3/uL 1.09-3.23 L = 731-0) MONO x10^3 (test code 0.63 10*3/uL 0.36-1.02 = 742-7) EOS x10^3 (test code = 0.10 10*3/uL 0.06-0.53 711-2) BASO x10^3 (test code 0.04 10*3/uL 0.01-0.09 = 704-7) Lab Interpretation Abnormal (test code = 70929-0) [facility] [id number] 21:18:32COVID DMT InterpretationInterpretation/Recommendations:Molecular NAAT Tests for Active Infection with the SARS-CoV-2 Virus:The patient has currently tested negative for the SARS-CoV-2 virus that causesCOVID-19 illness. This most likely indicates that the patient does not have an active infection withthe SARS-CoV-2 virus. However, infection is not completely ruled out as the false negative rate for molecular NAAT testing using a nasopharyngeal sample can be up to 30%, mostly dependent on the timingof sample collection in relation to illness onset and any deficiencies in sampling techniques. If the patient has symptoms concerning for COVID-19 illness, a repeat NAAT test (PCR, Rapid ID Now, etc.) should be performed, at which time the SARS-CoV-2 virus if present may have reached a detectable viral load (usually peaking by the end of the first week of symptoms). Tests for IgM and/or IgG Antibodies to the SARS-CoV-2 Virus:Testing for IgM and IgG antibodies approximately 3 weeks after illness onset will likely indicate if the patient has produced antibodies to the SARS-CoV-2 virus. However, some patients may take longer to develop detectable antibodies, while others infected with SARS-CoV-2 may never develop antibodies, particularly those who have had mild or asymptomatic illness. Of note, if the patient has been vaccinated earlier than 1-2 weeks prior to antibody testing, any penxmglhJQLR-SqB-9 IgG antibody result is likely due to vaccination. The specific duration and strength of immunity from SARS-CoV-2 IgG antibodies is highly variable between individuals and is dependent on a variety of factors, including infection vs. vaccination response, initial infection severity, the strength of the patient's own immune system, and the variants to which the patient has been exposed. ? --- Interpretation Result Comments:These interpretation comments are based upon all COVID-19 testing the patient has had at [facility], including molecular NAAT testing (more commonly known as PCR testing and Rapid ID Now testing) and antibody testing. It does not take into account any testing that a patient has had outside of the [facility] medical record. [facility] SERVICESCOVID DajrklmBFST-ZpQ-9 Rapid ID NOW (no units) ? ? Date ? Value ? 11/23/2020 ? Not Detected ? ? ? 09/21/2020 ? Not Detected ? ? ? 08/26/2020 ? Not Detected ? ? ? 08/22/2020 ? Not Detected ? ? ? 02/09/2020 ? Not Detected ? ? ? 01/29/2020 ? Not Detected ? ? ? 01/16/2020 ? Not Detected ? ? ? 01/05/2020 ? Not Detected ? [facility] COVID [id number] 21:18:32COVID DMT InterpretationInterpretation/Recommendations:Molecular NAAT Tests for Active Infection with the SARS-CoV-2 Virus:The patient has currently tested negative for the SARS-CoV-2 virus that causesCOVID-19 illness. This most likely indicates that the patient does not have an active infection withthe SARS-CoV-2 virus. However, infection is not completely ruled out as the false negative rate for m olecular NAAT testing using a nasopharyngeal sample can be up to 30%, mostly dependent on the timingof sample collection in relation to illness onset and any deficiencies in sampling techniques. If the patient has symptoms concerning for COVID-19 illness, a repeat NAAT test (PCR, Rapid ID Now, etc.) should be performed, at which time the SARS-CoV-2 virus if present may have reached a detectable viral load (usually peaking by the end of the first week of symptoms). Tests for IgM and/or IgG Antibodies to the SARS-CoV-2 Virus:Testing for IgM and IgG antibodies approximately 3 weeks after illness onset will likely indicate if the patient has produced antibodies to the SARS-CoV-2 virus. However , some patients may take longer to develop detectable antibodies, while others infected with SARS-CoV-2 may never develop antibodies, particularly those who have had mild or asymptomatic illness. Of note, if the patient has been vaccinated earlier than 1-2 weeks prior to antibody testing, any positive SARS-CoV-2 IgG antibody result is likely due to vaccination. The specific duration and strength of immunity from SARS-CoV-2 IgG antibodies is highly variable between individuals and is dependent on a variety of factors, including infection vs. vaccination response, initial infection severity, the strength of the patient's own immune system, and the variants to which the patient has been exposed. ? --- Interpretation Result Comments:These interpretation comments are based upon all COVID-19 testing the patient has had at [facility], including molecular NAAT testing (more commonly known as PCR testing and Rapid ID Now testing) and antibody testing. It does not take into account any testing that a patient has had outside of the [facility] medical record. [facility] [id number] Rapid ID NOW (no units) ? ? Date ? Value ? 11/23/2020 ? Not Detected ? ? ? 09/21/2020 ? Not Detected ? ? ? 08/26/2020 ? Not Detected ? ? ? 08/22/2020 ? Not Detected ? ? ? 02/09/2020 ? Not Detected ? ? ? 01/29/2020 ? Not Detected ? ? ? 01/16/2020 ? Not Detected ? ? ? 01/05/2020 ? Not Detected ? [facility]LIPASE2021-[facility]26 14:29:56 Test Item Value Reference Range Interpretation Comments LIPASE (test code = 5916721073) 456 U/L 0-220 H Lab Interpretation (test code = Abnormal 43664-8) [facility] 14:29:56 Test Item Value Reference Range Interpretation Comments LIPASE (test code = 6994557910) 456 U/L 0-220 H Lab Interpretation (test code = Abnormal 96672-3) [facility] PEL[facility] W [id number] 13:48:36 1. Interval worsening of inflammatory stranding in the peripancreatic fatwith bands of fluid along retroperitoneal fascial planes. Pattern mostsuggestive of acute interstitial edematous pancreatitis. Increased muralthickening and periduodenal fat stranding of the adjacent duodenum likelysecondary to adjacent pancreatic inflammatory process rather than primaryduodenal inflammation. 2. A new curvilinear hypodensity in the pancreatic head (2:46 and 4:38) mayrepresent focal pancreatic necrosis or a dilated accessory duct.Diverticulosis without evidence of diverticulitis. Hepatic steatosis. Preliminary Report Dictated by Resident: Sonia Sánchez MD., have reviewed this study and agree with theabove report.EXAM: CT ABDOMEN AND PELVIS WITH CONTRAST HISTORY: Abdominal pain, nausea and vomiting for 4 days. COMPARISON: CT abdomen and pelvis with contrast, 10/31/2020. TECHNIQUE AND FINDINGS: Contiguous axial imaging from the level of the lungbases through the pubic symphysis was performed after the uncomplicatedadministration of intravenous Omnipaque contrast. Coronal and sagittalreconstructions were obtained. FINDINGS: LOWER THORAX: The lungs bases are clear. No cardiomegaly. LIVER: Normal in size and contour. There is diffuse hypoattenuation of thehepatic parenchyma. Stable indeterminate 0.6 cm hyperattenuating hepaticsegment II focus. GALLBLADDER AND BILIARY TREE: Prior cholecystectomy changes are seen. Nobiliary ductal dilatation. SPLEEN: No splenomegaly. PANCREAS: Interval increase in prominence of peripancreatic fat strandingsurrounding the pancreatic head. ADRENAL GLANDS: No adrenal nodules. KIDNEYS: No hydronephrosis, stones, or masses. PERITONEUM AND RETROPERITONEUM: Small amount of free fluid is seen in thepelvis. No free air. LYMPH NODES: No lymphadenopathy. GI TRACT: Interval increase in mural thickening with surrounding fatstranding of the second and third portion of duodenum. Colonicdiverticulosis is seen most prominent in the sigmoid colon without evidenceof diverticulitis. PELVIS/BLADDER: The urinary bladder is well-distended and appearsunremarkable. VESSELS: Moderate scattered atherosclerotic aortoiliac calcifications. BONES AND SOFT TISSUES: No suspicious lytic or sclerotic bony lesions. [facility], Radiant Results Inft User - 11/24/2020 8:49 AM CDT EXAM: CT ABDOMEN AND PELVIS WITH CONTRASTHISTORY: Abdominal pain, nausea and vomiting for 4 days.COMPARISON: CT abdomen and pelvis with contrast, 10/31/2020.TECHNIQUE AND FINDINGS: Contiguous axial imaging from the level of the lungbases through the pubic symphysis was performed after the uncomplicatedadministration of intravenous Omnipaque contrast. Coronal and sagittalreconstructions were obtained.FINDINGS:LOWER THORAX: The lungs bases are clear.No cardiomegaly.LIVER: Normal in size and contour. There is diffuse hypoattenuation of thehepatic parenchyma. Stable indeterminate 0.6 cm hyperattenuating hepaticsegment II focus. GALLBLADDER AND BILIARY TREE: Prior cholecystectomy changes are seen. Nobiliary ductal dilatation.SPLEEN: No splenomegaly.PANCREAS: Interval increase in prominence of peripancreatic fat strandingsurrounding the pancreatic head.ADRENAL GLANDS: No adrenal nodules.KIDNEYS: No hydronephrosis, stones, or masses.PERITONEUM AND RE TROPERITONEUM: Small amount of free fluid is seen in thepelvis. No free air.LYMPH NODES: No lymphadenopathy.GI TRACT: Interval increase in mural thickening with surrounding fatstranding of the second and third portion of duodenum. Colonicdiverticulosis is seen most prominent in the sigmoid colon without evidenceof diverticulitis.PELVIS/BLADDER: The urinary bladder is well- distended and appearsunremarkable.VESSELS: Moderate scattered atherosclerotic aortoiliac calcifications.BONES AND SOFT TISSUES: No suspicious lytic or sclerotic bony lesions.IMPRESSION1. Interval worsening of inflammatory stranding in the peripancreatic fatwith bands of fluid along retroperitoneal fascial planes. Pattern mostsuggestive of acute interstitial edematous pancreatitis. Increased muralthickening and periduodenal fat stranding of the adjacent duodenum likelysecondary to adjacent pancreatic inflammatory process rather than primaryduodenal inflammation.2. A new curvilinear hypodensity in the pancreatic head (2:46 and 4:38) mayrepresent focal pancreatic necrosis or a dilated accessory duct.Diverticulosis without evidence of diverticulitis. Hepatic steatosis.Preliminary Report Dictated by Resident: Sonia Satnos MD., have reviewed this study and agree with theabove report. [facility] PEL[facility] W [id number] 13:48:36 1. Interval worsening of inflammatory stranding in the peripancreatic fatwith bands of fluid along retroperitoneal fascial planes. Pattern mostsuggestive of acute interstitial edematous pancreatitis. Increased muralthickening and periduodenal fat stranding of the adjacent duodenum likelysecondary to adjacent pancreatic inflammatory process rather than primaryduodenal inflammation. 2. A new curvilinear hypodensity in the pancreatic head (2:46 and 4:38) mayrepresent focal pancreatic necrosis or a dilated accessory duct.Diverticulosis without evidence of diverticulitis. Hepatic steatosis. Preliminary Report Dictated by Resident: Sonia Sánchez MD., have reviewed this study and agree with theabove report.EXAM: CT ABDOMEN AND PELVIS WITH CONTRAST HISTORY: Abdominal pain, nausea and vomiting for 4 days. COMPARISON: CT abdomen and pelvis with contrast, 10/31/2020. TECHNIQUE AND FINDINGS: Contiguous axial imaging from the level of the lungbases through the pubic symphysis was performed after the uncomplicatedadministration of intravenous Omnipaque contrast. Coronal and sagittalreconstructions were obtained. FINDINGS: LOWER THORAX: The lungs bases are clear. No cardiomegaly. LIVER: Normal in size and contour. There is diffuse hypoattenuation of thehepatic parenchyma. Stable indeterminate 0.6 cm hyperattenuating hepaticsegment II focus. GALLBLADDER AND BILIARY TREE: Prior cholecystectomy changes are seen. Nobiliary ductal dilatation. SPLEEN: No splenomegaly. PANCREAS: Interval increase in prominence of peripancreatic fat strandingsurrounding the pancreatic head. ADRENAL GLANDS: No adrenal nodules. KIDNEYS: No hydronephrosis, stones, or masses. PERITONEUM AND RETROPERITONEUM: Small amount of free fluid is seen in thepelvis. No free air. LYMPH NODES: No lymphadenopathy. GI TRACT: Interval increase in mural thickening with surrounding fatstranding of the second and third portion of duodenum. Colonicdiverticulosis is seen most prominent in the sigmoid colon without evidenceof diverticulitis. PELVIS/BLADDER: The urinary bladder is well-distended and appearsunremarkable. VESSELS: Moderate scattered atherosclerotic aortoiliac calcifications. BONES AND SOFT TISSUES: No suspicious lytic or sclerotic bony lesions. [facility], Radiant Results Inft User - 11/24/2020 8:49 AM CDT EXAM: CT ABDOMEN AND PELVIS WITH CONTRASTHISTORY: Abdominal pain, nausea and vomiting for 4 days.COMPARISON: CT abdomen and pelvis with contrast, 10/31/2020.TECHNIQUE AND FINDINGS: Contiguous axial imaging from the level of the lungbases through the pubic symphysis was performed after the uncomplicatedadministration of intravenous Omnipaque contrast. Coronal and sagittalreconstructions were obtained.FINDINGS:LOWER THORAX: The lungs bases are clear.No cardiomegaly.LIVER: Normal in size and contour. There is diffuse hypoattenuation of thehepatic parenchyma. Stable indeterminate 0.6 cm hyperattenuating hepaticsegment II focus. GALLBLADDER AND BILIARY TREE: Prior cholecystectomy changes are seen. Nobiliary ductal dilatation.SPLEEN: No splenomegaly.PANCREAS: Interval increase in prominence of peripancreatic fat strandingsurrounding the pancreatic head.ADRENAL GLANDS: No adrenal nodules.KIDNEYS: No hydronephrosis, stones, or masses.PERITONEUM AND RE TROPERITONEUM: Small amount of free fluid is seen in thepelvis. No free air.LYMPH NODES: No lymphadenopathy.GI TRACT: Interval increase in mural thickening with surrounding fatstranding of the second and third portion of duodenum. Colonicdiverticulosis is seen most prominent in the sigmoid colon without evidenceof diverticulitis.PELVIS/BLADDER: The urinary bladder is well- distended and appearsunremarkable.VESSELS: Moderate scattered atherosclerotic aortoiliac calcifications.BONES AND SOFT TISSUES: No suspicious lytic or sclerotic bony lesions.IMPRESSION1. Interval worsening of inflammatory stranding in the peripancreatic fatwith bands of fluid along retroperitoneal fascial planes. Pattern mostsuggestive of acute interstitial edematous pancreatitis. Increased muralthickening and periduodenal fat stranding of the adjacent duodenum likelysecondary to adjacent pancreatic inflammatory process rather than primaryduodenal inflammation.2. A new curvilinear hypodensity in the pancreatic head (2:46 and 4:38) mayrepresent focal pancreatic necrosis or a dilated accessory duct.Diverticulosis without evidence of diverticulitis. Hepatic steatosis.Preliminary Report Dictated by Resident: Sonia Santos MD., have reviewed this study and agree with theabove report. [facility] with [id number] 12:28:09 Test Item Value Reference Range Interpretation Comments WBC (test code = See_Comment [Automated 6690-2) message] The sy stem which generated this result transmitted reference range : 4.20 - 10.70 10*3/?L. The reference range was not used to interpret this result as normal/abnormal . RBC (test code = See_Comment [Automated 789-8) message] The sy stem which generated this result transmitted reference range : 4.26 - 5.52 10*6/?L. The reference range was not used to interpret this result as normal/abnormal . HGB (test code = 14.5 g/dL 12.2-16.4 718-7) HCT (test code = 42.4 % 38.4-49.3 4544-3) MCV (test code = 96.8 fL 81.7-95.6 H 787-2) MCH (test code = 33.1 pg 26.1-32.7 H 785-6) MCHC (test code = 34.2 g/dL 31.2-35.0 786-4) RDW-SD (test code = 49.6 fL 38.5-51.6 27799-6) RDW-CV (test code = 13.9 % 12.1-15.4 788-0) PLT (test code = See_Comment L [Automated 777-3) message] The sy stem which generated this result transmitted reference range : 150 - 328 10*3/ ?L. The reference r kevin was not used to interpret this result as normal/abnormal . MPV (test code = 10.0 fL 9.8-13.0 53029-8) NRBC/100 WBC (test See_Comment [Automat ed code = 1191587823) message] The system which generated this result transmitted reference range : 0.0 - 10.0 /100 WBCs. The refer ence range was not u sed to interpret th is result as normal/abnormal . NRBC x10^3 (test code <0.01 See_Comment [Auto mated = 8291649826) message] The s ystem which generated this result transmitted reference range : 10*3/?L. The reference range was not used to interpret this result as normal/abnormal . GRAN MAT (NEUT) % 84.6 % (test code = 770-8) IMM GRAN % (test code 0.60 % = 3226038864) LYMPH % (test code = 6.5 % 736-9) MONO % (test code = 7.1 % 5905-5) EOS % (test code = 0.8 % 713-8) BASO % (test code = 0.4 % 706-2) GRAN MAT x10^3(ANC) 8.37 10*3/uL 1.99-6.95 H (test code = 8385673810) IMM GRAN x10^3 (test 0.06 10*3/uL 0.00-0.06 code = 4286856329) LYMPH x10^3 (test code 0.64 10*3/uL 1.09-3.23 L = 731-0) MONO x10^3 (test code 0.70 10*3/uL 0.36-1.02 = 742-7) EOS x10^3 (test code = 0.08 10*3/uL 0.06-0.53 711-2) BASO x10^3 (test code 0.04 10*3/uL 0.01-0.09 = 704-7) Lab Interpretation Abnormal (test code = 07638-2) [facility] with Fsjxqauhtzql5821-20-30 12:28:09 Test Item Value Reference Range Interpretation Comments WBC (test code = See_Comment [Automated 6690-2) message] The sy stem which generated this result transmitted reference range : 4.20 - 10.70 10*3/?L. The reference range was not used to interpret this result as normal/abnormal . RBC (test code = See_Comment [Automated 789-8) message] The sy stem which generated this result transmitted reference range : 4.26 - 5.52 10*6/?L. The reference range was not used to interpret this result as normal/abnormal . HGB (test code = 14.5 g/dL 12.2-16.4 718-7) HCT (test code = 42.4 % 38.4-49.3 4544-3) MCV (test code = 96.8 fL 81.7-95.6 H 787-2) MCH (test code = 33.1 pg 26.1-32.7 H 785-6) MCHC (test code = 34.2 g/dL 31.2-35.0 786-4) RDW-SD (test code = 49.6 fL 38.5-51.6 60746-2) RDW-CV (test code = 13.9 % 12.1-15.4 788-0) PLT (test code = See_Comment L [Automated 777-3) message] The sy stem which generated this result transmitted reference range : 150 - 328 10*3/ ?L. The reference r kevin was not used to interpret this result as normal/abnormal . MPV (test code = 10.0 fL 9.8-13.0 07555-6) NRBC/100 WBC (test See_Comment [Automat ed code = 8247086912) message] The system which generated this result transmitted reference range : 0.0 - 10.0 /100 WBCs. The refer ence range was not u sed to interpret th is result as normal/abnormal . NRBC x10^3 (test code <0.01 See_Comment [Auto mated = 9833073976) message] The s ystem which generated this result transmitted reference range : 10*3/?L. The reference range was not used to interpret this result as normal/abnormal . GRAN MAT (NEUT) % 84.6 % (test code = 770-8) IMM GRAN % (test code 0.60 % = 0817188741) LYMPH % (test code = 6.5 % 736-9) MONO % (test code = 7.1 % 5905-5) EOS % (test code = 0.8 % 713-8) BASO % (test code = 0.4 % 706-2) GRAN MAT x10^3(ANC) 8.37 10*3/uL 1.99-6.95 H (test code = 7914953340) IMM GRAN x10^3 (test 0.06 10*3/uL 0.00-0.06 code = 2022236163) LYMPH x10^3 (test code 0.64 10*3/uL 1.09-3.23 L = 731-0) MONO x10^3 (test code 0.70 10*3/uL 0.36-1.02 = 742-7) EOS x10^3 (test code = 0.08 10*3/uL 0.06-0.53 711-2) BASO x10^3 (test code 0.04 10*3/uL 0.01-0.09 = 704-7) Lab Interpretation Abnormal (test code = 47053-3) [facility] Metabolic [facility] (NA, K, CL, CO2, GLUCOSE, BUN, CREATININE, CA)2020-11-24 11:32:38 Test Item Value Reference Range Interpretation Comments NA (test code = 135 mmol/L 135-145 7510754100) K (test code = 2.9 mmol/L 3.5-5.0 LL 3548104259) CL (test code = 96 mmol/L 98-108 L 3259771295) CO2 TOTAL (test code = 28 mmol/L 23-31 7960836328) AGAP (test code = 2-16 7200802704) BUN (test code = 9 mg/dL 7-23 4609947415) GLUCOSE (test code = 79 mg/dL 70-110 5478071013) CREATININE (test code = 0.48 mg/dL 0.60-1.25 L 1427616916) CALCIUM (test code = 8.9 mg/dL 8.6-10.6 2572794251) eGFR (test code = mL/min/1.73m2 8925042875) BERYL (test code = BERYL) Association of Glomerular Filtration Rate (GFR) and Staging of Kidney Disease* + --+ --+ ------+| GFR (mL/min/1.73 m2) ?| With Kidney Damage ?| ?Without Kidney Damage+ --------+ --------+ +| ?>90 ?| ?Stage one ?| ? Normal ?+ ---+ ---+ -------+| ?60-89 ?| ?Stage two ?| ? Decreased GFR ? + --+ --+ ------+| ?30-59 ?| ?Stage three ?| ? Stage three ? + --+ --+ ------+| ?15-29 ?| ?Stage four ? | ? Stage four ?+ ---+ ---+ -------+| ?<15 (or dialysis) ? ?| ?Stage five ? | ? Stage five ?+ ---+ ---+ -------+ *Each stage assumes the associated GFR level has been in effect for at least three months. ?Stages 1 to 5, with or without kidney disease, indicate chronic kidney disease. Notes: Determination of stages one and two (with eGFR >59mL/min/1.73 m2) requires estimation of kidney damage for at least three months as defined by structural or functional abnormalities of the kidney, manifested by either:Pathological abnormalities or Markers of kidney damage (including abnormalities in the composition of the blood or urine or abnormalities in imaging tests). Lab Interpretation Abnormal (test code = 17112-5) [facility] (NA, K, CL, CO2, GLUCOSE, BUN, CREATININE, CA)2020-11-24 11:32:38 Test Item Value Reference Range Interpretation Comments NA (test code = 135 mmol/L 135-145 3733146350) K (test code = 2.9 mmol/L 3.5-5.0 LL 8080491531) CL (test code = 96 mmol/L 98-108 L 9978823342) CO2 TOTAL (test code = 28 mmol/L 23-31 9446990858) AGAP (test code = 2-16 2177301020) BUN (test code = 9 mg/dL 7-23 7132471145) GLUCOSE (test code = 79 mg/dL 70-110 9015150995) CREATININE (test code = 0.48 mg/dL 0.60-1.25 L 2735315571) CALCIUM (test code = 8.9 mg/dL 8.6-10.6 2540583123) eGFR (test code = mL/min/1.73m2 6339022019) BERYL (test code = BERYL) Association of Glomerular Filtration Rate (GFR) and Staging of Kidney Disease* + --+ --+ ------+| GFR (mL/min/1.73 m2) ?| With Kidney Damage ?| ?Without Kidney Damage+ --------+ --------+ +| ?>90 ?| ?Stage one ?| ? Normal ?+ ---+ ---+ -------+| ?60-89 ?| ?Stage two ?| ? Decreased GFR ? + --+ --+ ------+| ?30-59 ?| ?Stage three ?| ? Stage three ? + --+ --+ ------+| ?15-29 ?| ?Stage four ? | ? Stage four ?+ ---+ ---+ -------+| ?<15 (or dialysis) ? ?| ?Stage five ? | ? Stage five ?+ ---+ ---+ -------+ *Each stage assumes the associated GFR level has been in effect for at least three months. ?Stages 1 to 5, with or without kidney disease, indicate chronic kidney disease. Notes: Determination of stages one and two (with eGFR >59mL/min/1.73 m2) requires estimation of kidney damage for at least three months as defined by structural or functional abnormalities of the kidney, manifested by either:Pathological abnormalities or Markers of kidney damage (including abnormalities in the composition of the blood or urine or abnormalities in imaging tests). Lab Interpretation Abnormal (test code = 53238-8) [facility] Axbif0194-05-22 11:13:37 Test Item Value Reference Range Interpretation Comments MAGNESIUM (test code = 0730773782) 1.4 mg/dL 1.7-2.4 L Lab Interpretation (test code = Abnormal 63359-9) [facility] (25728) (ALB,T.PRO,BILI T,BU/BC,ALT,AST,ALK PHOS)2020-11-24 11:13:37 Test Item Value Reference Range Interpretation Comments TOTAL BILI (test code = 3749293449) 1.6 mg/dL 0.1-1.1 H BILI UNCON (test code = 6326629488) 1.1 mg/dL 0.1-1.1 BILI CONJ (test code = 5236236064) 0.0 mg/dL 0.0-0.3 T PROTEIN (test code = 6419428705) 6.4 g/dL 6.3-8.2 ALBUMIN (test code = 4487739090) 3.7 g/dL 3.5-5.0 ALK PHOS (test code = 7531844139) 265 U/L 34-122 H ALTv (test code = 1742-6) 121 U/L 5-50 H AST(SGOT) (test code = 9196132730) 245 U/L 13-40 H Lab Interpretation (test code = Abnormal 08155-0) [facility]vine[facility] (94121)(TOTAL CHOLESTEROL, TRIGLYCERIDES, HDL)2020-11-24 11:13:37 Test Item Value Reference Range Interpretation Comments CHOL (test code = 145 mg/dL 120-200 4671645715) HDL (test code = 68 mg/dL >40 7804398247) HDLC RATIO (test code = See_Comment [Au tomated message] 3893601456) The system [employer]umi[employer] generated this result transmit meng reference range : <=5.0. The refe rence range was not u sed to interpret th is result as normal/abnormal . TRIG (test code = 68 mg/dL 30-170 4548413798) LDL CHOL (test code = 63 mg/dL See_Comment [Auto mated message] 78793-1) The system [employer] generated this result transmit meng reference range : <=160. The refe rence range was not u sed to interpret th is result as normal/abnormal . VLDL (test code = 14 mg/dL 5-60 3156696876) Lab Interpretation (test Normal code = 91902-5) [facility] Qgvkg9252-71-84 11:13:37 Test Item Value Reference Range Interpretation Comments MAGNESIUM (test code = 0550505697) 1.4 mg/dL 1.7-2.4 L Lab Interpretation (test code = Abnormal 87013-3) [facility] (41712) (ALB,T.PRO,BILI T,BU/BC,ALT,AST,ALK PHOS)2020-11-24 11:13:37 Test Item Value Reference Range Interpretation Comments TOTAL BILI (test code = 8088071108) 1.6 mg/dL 0.1-1.1 H BILI UNCON (test code = 8935356246) 1.1 mg/dL 0.1-1.1 BILI CONJ (test code = 7241431890) 0.0 mg/dL 0.0-0.3 T PROTEIN (test code = 9055525669) 6.4 g/dL 6.3-8.2 ALBUMIN (test code = 4538306557) 3.7 g/dL 3.5-5.0 ALK PHOS (test code = 9756600611) 265 U/L 34-122 H ALTv (test code = 1742-6) 121 U/L 5-50 H AST(SGOT) (test code = 6654537296) 245 U/L 13-40 H Lab Interpretation (test code = Abnormal 29188-7) [facility] (27738)(TOTAL CHOLESTEROL, TRIGLYCERIDES, HDL)2020-11-24 11:13:37 Test Item Value Reference Range Interpretation Comments CHOL (test code = 145 mg/dL 120-200 0940257483) HDL (test code = 68 mg/dL >40 2803168390) HDLC RATIO (test code = See_Comment [Au tomated message] 9888599040) The system [employer] generated this result transmit meng reference range : <=5.0. The refe rence range was not u sed to interpret th is result as normal/abnormal . TRIG (test code = 68 mg/dL 30-170 9073528170) LDL CHOL (test code = 63 mg/dL See_Comment [Auto mated message] 77214-7) The system [employer] generated this result transmit meng reference range : <=160. The refe rence range was not u sed to interpret th is result as normal/abnormal . VLDL (test code = 14 mg/dL 5-60 4653911733) Lab Interpretation (test Normal code = 32619-6) [facility]vine[facility] Zrjco3550-24-18 11:13:17 Test Item Value Reference Range Interpretation Comments PHOSPHORUS (test code = 7501448257) 3.5 mg/dL 2.5-5.0 Lab Interpretation (test code = Normal 00370-9) [facility] Cndue3371-24-91 11:13:17 Test Item Value Reference Range Interpretation Comments PHOSPHORUS (test code = 1290364999) 3.5 mg/dL 2.5-5.0 Lab Interpretation (test code = Normal 62277-4) [facility]vineL[facility] Acid Whole Cthbv8003-83-41 10:11:12 Test Item Value Reference Range Interpretation Comments LACTIC ACID (test code = 1.34 mmol/L 0.50-2.20 1547316639) Lab Interpretation (test code = Normal 14657-9) [facility]vineL[facility] Acid Whole Jbibb5645-84-23 10:11:12 Test Item Value Reference Range Interpretation Comments LACTIC ACID (test code = 1.34 mmol/L 0.50-2.20 7531953388) Lab Interpretation (test code = Normal 09797-8) [facility] GrapevineUrinalysis2021-08-26 02:51:55 Test Item Value Reference Range Interpretation Comments APPEARANCE (test code = Hazy Clear A 5043118819) COLOR (test code = Kamille Yellow A 2674343182) PH (test code = 4.8-8.0 4802268647) SP GRAVITY (test code = 1.003-1.030 H 0849080738) GLU U QUAL (test code = Normal Normal 4843063975) BLOOD (test code = Negative Negative 1689134049) KETONES (test code = 80 mg/dL Negative A 9496710615) PROTEIN (test code = 100 mg/dL Negative A 2887-8) UROBILIN (test code = 2.0 mg/dL Normal A 2069745465) BILIRUBIN (test code = Negative Negative 2717751160) NITRITE (test code = Negative Negative 3636448052) LEUK CAMMIE (test code = Negative Negative 5448502631) RBC/HPF (test code = See_Comment H [Autom ated message] 4562892739) The system Lumiata generated this result transmit meng reference range : 0 - 3 HPF. The refe rence range was not u sed to interpret th is result as normal/abnormal . WBC/HPF (test code = See_Comment H [Autom ated message] 7859219852) The system Lumi[employer] generated this result transmit meng reference range : 0 - 5 HPF. The refe rence range was not u sed to interpret th is result as normal/abnormal . BACTERIA (test code = Moderate Negative A 0122005867) MUCOUS (test code = Marked Negative LPF A 6339032393) WBC CLUMPS (test code = <1 See_Comment [Au tomated message] 2085595712) The system Lumi[employer] generated this result transmit meng reference range : <=1 HPF. The refere nce range was not u sed to interpret th is result as normal/abnormal . HYAL CAST (test code = See_Comment H [Aut omated message] 5891008973) The system Lumi[employer] generated this result transmit meng reference range : <=2 LPF. The refere nce range was not u sed to interpret th is result as normal/abnormal . GRAN CASTS (test code = See_Comment [Au tomated message] 9827822734) The system Lumi[employer] generated this result transmit meng reference range : <=1 LPF. The refere nce range was not u sed to interpret th is result as normal/abnormal . Lab Interpretation (test Abnormal code = 95276-8) [facility]51:55 Test Item Value Reference Range Interpretation Comments APPEARANCE (test code = Hazy Clear A 9401456471) COLOR (test code = Kamille Yellow A 4981545156) PH (test code = 4.8-8.0 1362464538) SP GRAVITY (test code = 1.003-1.030 H 5554319406) GLU U QUAL (test code = Normal Normal 8113084464) BLOOD (test code = Negative Negative 5210419190) KETONES (test code = 80 mg/dL Negative A 3913323927) PROTEIN (test code = 100 mg/dL Negative A 2887-8) UROBILIN (test code = 2.0 mg/dL Normal A 9550686626) BILIRUBIN (test code = Negative Negative 1654891903) NITRITE (test code = Negative Negative 7518868394) LEUK CAMMIE (test code = Negative Negative 1308428407) RBC/HPF (test code = See_Comment H [Autom ated message] 9054179851) The system Lumiata generated this result transmit meng reference range : 0 - 3 HPF. The refe rence range was not u sed to interpret th is result as normal/abnormal . WBC/HPF (test code = See_Comment H [Autom ated message] 8645828247) The system Lumi[employer] generated this result transmit meng reference range : 0 - 5 HPF. The refe rence range was not u sed to interpret th is result as normal/abnormal . BACTERIA (test code = Moderate Negative A 2302055883) MUCOUS (test code = Marked Negative LPF A 3661818929) WBC CLUMPS (test code = <1 See_Comment [Au tomated message] 4072094032) The system Lumi[employer] generated this result transmit meng reference range : <=1 HPF. The refere nce range was not u sed to interpret th is result as normal/abnormal . HYAL CAST (test code = See_Comment H [Aut omated message] 6402800023) The system Lumi[employer] generated this result transmit meng reference range : <=2 LPF. The refere nce range was not u sed to interpret th is result as normal/abnormal . GRAN CASTS (test code = See_Comment [Au tomated message] 9618671753) The system Lumi[employer] generated this result transmit meng reference range : <=1 LPF. The refere nce range was not u sed to interpret th is result as normal/abnormal . Lab Interpretation (test Abnormal code = 80181-8) [facility], [id number] 01:43:49 Test Item Value Reference Range Interpretation Comments LIPASE (test code = 3153076134) 2193 U/L 0-220 H Lab Interpretation (test code = Abnormal 79711-8) [facility], Clyxs2112-26-46 01:43:49 Test Item Value Reference Range Interpretation Comments LIPASE (test code = 3146259308) 2193 U/L 0-220 H Lab Interpretation (test code = Abnormal 09092-7) [facility] [id number] 01:22:23 Test Item Value Reference Interpretation Comments Range TROPONIN I (test 0.012 ng/mL See_Comment [Automated code = 7986559746) message] The system which generated this result transmitted reference range : <=0.034. The reference range was not used to interpret this result as normal/abnormal . BERYL (test code = Reference (Normal) BERYL) Range (defined by the 99th percentile reference limit): <= 0.034 ng/mL Note: Cardiac troponin begins to rise 3-4 hours after the onset of ischemia. Repeat in 4-6 hours if the sample was drawn within 3-4 hours of the onset of the symptom and found normal. Diagnosis of myocardial injury is made with acute changes in cTn concentrations with at least one serial sample above the 99th percentile upper reference limit (URL), taken together with the patient's clinical presentation. Biotin has been reported to cause a negative bias, interpret results relative to patient's use of biotin. Lab Interpretation Normal (test code = 39573-3) [facility] [id number] 01:22:23 Test Item Value Reference Interpretation Comments Range TROPONIN I (test 0.012 ng/mL See_Comment [Automated code = 2884544672) message] The system which generated this result transmitted reference range : <=0.034. The reference range was not used to interpret this result as normal/abnormal . BERYL (test code = Reference (Normal) BERYL) Range (defined by the 99th percentile reference limit): <= 0.034 ng/mL Note: Cardiac troponin begins to rise 3-4 hours after the onset of ischemia. Repeat in 4-6 hours if the sample was drawn within 3-4 hours of the onset of the symptom and found normal. Diagnosis of myocardial injury is made with acute changes in cTn concentrations with at least one serial sample above the 99th percentile upper reference limit (URL), taken together with the patient's clinical presentation. Biotin has been reported to cause a negative bias, interpret results relative to patient's use of biotin. Lab Interpretation Normal (test code = 26776-0) [facility]OVID[facility] (ID NOW RAPID TESTING)2020-11-24 01:12:42 Test Item Value Reference Range Interpretation Comments SARS-CoV-2 Rapid ID NOW Not Detected Not Detected (test code = 94886-8) BERYL (test code = BERYL) ID NOW COVID-19 Assay is an isothermal nucleic acid amplification test intended for the qualitative detection of nucleic acid from SARS-CoV-2 viral RNA in nasopharyngeal ([employer]) specimens. It is used under Emergency Use Authorization (EUA) by FDA. The limit of detection (LOD) of the assay is 125 Genome Equivalents/mL. A positive result is indicative of the presence of SARS-CoV-2 RNA. ?Clinical correlation with patient history and other diagnostic information is necessary to determine patient infection status. A negative (Not Detected) result does not preclude SARS-CoV-2 infection. In patients with clinical symptoms and other tests that are consistent with SARS-CoV-2 infection, negative results should be treated as presumptive negative and a new specimen should be tested with alternative PCR molecular test. Invalid: Please collect a new specimen for repeat patient testing if clinically indicated. Lab Interpretation Normal (test code = 65995-6) [facility] (ID NOW RAPID TESTING)2020-11-24 01:12:42 Test Item Value Reference Range Interpretation Comments SARS-CoV-2 Rapid ID NOW Not Detected Not Detected (test code = 15096-2) BERYL (test code = BERYL) ID NOW COVID-19 Assay is an isothermal nucleic acid amplification test intended for the qualitative detection of nucleic acid from SARS-CoV-2 viral RNA in nasopharyngeal ([employer]) specimens. It is used under Emergency Use Authorization (EUA) by FDA. The limit of detection (LOD) of the assay is 125 Genome Equivalents/mL. A positive result is indicative of the presence of SARS-CoV-2 RNA. ?Clinical correlation with patient history and other diagnostic information is necessary to determine patient infection status. A negative (Not Detected) result does not preclude SARS-CoV-2 infection. In patients with clinical symptoms and other tests that are consistent with SARS-CoV-2 infection, negative results should be treated as presumptive negative and a new specimen should be tested with alternative PCR molecular test. Invalid: Please collect a new specimen for repeat patient testing if clinically indicated. Lab Interpretation Normal (test code = 45938-1) [facility]vine[facility] Metabolic [id number] 01:10:24 Test Item Value Reference Range Interpretation Comments NA (test code = 140 mmol/L 135-145 8143032864) K (test code = 3.4 mmol/L 3.5-5.0 L 5149400023) CL (test code = 95 mmol/L 98-108 L 9577953874) CO2 TOTAL (test code = 27 mmol/L 23-31 2958986494) AGAP (test code = 2-16 H 7225445601) BUN (test code = 10 mg/dL 7-23 2966316848) GLUCOSE (test code = 97 mg/dL 70-110 4350635263) CREATININE (test code = 0.64 mg/dL 0.60-1.25 8658900874) TOTAL BILI (test code = 1.3 mg/dL 0.1-1.1 H 1468383144) CALCIUM (test code = 10.7 mg/dL 8.6-10.6 H 3258621303) T PROTEIN (test code = 9.2 g/dL 6.3-8.2 H 5481322756) ALBUMIN (test code = 5.4 g/dL 3.5-5.0 H 8210392794) ALK PHOS (test code = 226 U/L 34-122 H 0221868131) ALTv (test code = 111 U/L 5-50 H 1742-6) AST(SGOT) (test code = 98 U/L 13-40 H 5586471986) eGFR (test code = mL/min/1.73m2 1543928334) BERYL (test code = BERYL) Association of Glomerular Filtration Rate (GFR) and Staging of Kidney Disease* + --+ --+ ------+| GFR (mL/min/1.73 m2) ?| With Kidney Damage ?| ?Without Kidney Damage+ --------+ --------+ +| ?>90 ?| ?Stage one ?| ? Normal ?+ ---+ ---+ -------+| ?60-89 ?| ?Stage two ?| ? Decreased GFR ? + --+ --+ ------+| ?30-59 ?| ?Stage three ?| ? Stage three ? + --+ --+ ------+| ?15-29 ?| ?Stage four ? | ? Stage four ?+ ---+ ---+ -------+| ?<15 (or dialysis) ? ?| ?Stage five ? | ? Stage five ?+ ---+ ---+ -------+ *Each stage assumes the associated GFR level has been in effect for at least three months. ?Stages 1 to 5, with or without kidney disease, indicate chronic kidney disease. Notes: Determination of stages one and two (with eGFR >59mL/min/1.73 m2) requires estimation of kidney damage for at least three months as defined by structural or functional abnormalities of the kidney, manifested by either:Pathological abnormalities or Markers of kidney damage (including abnormalities in the composition of the blood or urine or abnormalities in imaging tests). Lab Interpretation Abnormal (test code = 83749-0) [facility] Met[facility] Ngtmf1162-73-96 01:10:24 Test Item Value Reference Range Interpretation Comments NA (test code = 140 mmol/L 135-145 2482983799) K (test code = 3.4 mmol/L 3.5-5.0 L 0427671983) CL (test code = 95 mmol/L 98-108 L 3850330010) CO2 TOTAL (test code = 27 mmol/L 23-31 3714534456) AGAP (test code = 2-16 H 8238396516) BUN (test code = 10 mg/dL 7-23 5007465815) GLUCOSE (test code = 97 mg/dL 70-110 6560653799) CREATININE (test code = 0.64 mg/dL 0.60-1.25 1760058185) TOTAL BILI (test code = 1.3 mg/dL 0.1-1.1 H 0419051769) CALCIUM (test code = 10.7 mg/dL 8.6-10.6 H 2507752439) T PROTEIN (test code = 9.2 g/dL 6.3-8.2 H 6570898751) ALBUMIN (test code = 5.4 g/dL 3.5-5.0 H 1380165643) ALK PHOS (test code = 226 U/L 34-122 H 2730748165) ALTv (test code = 111 U/L 5-50 H 1742-6) AST(SGOT) (test code = 98 U/L 13-40 H 6257105827) eGFR (test code = mL/min/1.73m2 9421355530) BERYL (test code = BERYL) Association of Glomerular Filtration Rate (GFR) and Staging of Kidney Disease* + --+ --+ ------+| GFR (mL/min/1.73 m2) ?| With Kidney Damage ?| ?Without Kidney Damage+ --------+ --------+ +| ?>90 ?| ?Stage one ?| ? Normal ?+ ---+ ---+ -------+| ?60-89 ?| ?Stage two ?| ? Decreased GFR ? + --+ --+ ------+| ?30-59 ?| ?Stage three ?| ? Stage three ? + --+ --+ ------+| ?15-29 ?| ?Stage four ? | ? Stage four ?+ ---+ ---+ -------+| ?<15 (or dialysis) ? ?| ?Stage five ? | ? Stage five ?+ ---+ ---+ -------+ *Each stage assumes the associated GFR level has been in effect for at least three months. ?Stages 1 to 5, with or without kidney disease, indicate chronic kidney disease. Notes: Determination of stages one and two (with eGFR >59mL/min/1.73 m2) requires estimation of kidney damage for at least three months as defined by structural or functional abnormalities of the kidney, manifested by either:Pathological abnormalities or Markers of kidney damage (including abnormalities in the composition of the blood or urine or abnormalities in imaging tests). Lab Interpretation Abnormal (test code = 20419-9) [facility] Acid Whole [id number] 01:06:10 Test Item Value Reference Range Interpretation Comments LACTIC ACID (test code = 2.09 mmol/L 0.50-2.20 4241294769) Lab Interpretation (test code = Normal 87194-5) [facility] Vofdv8532-79-27 01:06:10 Test Item Value Reference Range Interpretation Comments LACTIC ACID (test code = 2.09 mmol/L 0.50-2.20 2597708266) Lab Interpretation (test code = Normal 86200-2) [facility] with Iarabxlilxyg0977-77-09 00:59:59 Test Item Value Reference Range Interpretation Comments WBC (test code = See_Comment H [Automated 4190-2) message] The system which generated this result transmit meng reference range : 4.20 - 10.70 10*3/?L. The reference range was not used to interpret this result as normal/abnormal . RBC (test code = See_Comment H [Automated 789-8) message] The system which generated this result transmit meng reference range : 4.26 - 5.52 10*6/?L. The reference range was not used to interpret this result as normal/abnormal . HGB (test code = 18.6 g/dL 12.2-16.4 H 718-7) HCT (test code = 54.3 % 38.4-49.3 H 4544-3) MCV (test code = 96.8 fL 81.7-95.6 H 787-2) MCH (test code = 33.2 pg 26.1-32.7 H 785-6) MCHC (test code = 34.3 g/dL 31.2-35.0 786-4) RDW-SD (test code = 50.4 fL 38.5-51.6 29490-3) RDW-CV (test code = 14.2 % 12.1-15.4 788-0) PLT (test code = See_Comment [Automated 777-3) message] The system which generated this result transmit meng reference range : 150 - 328 10*3/ ?L. The reference range was not u sed to interpret th is result as normal/abnormal . MPV (test code = 9.5 fL 9.8-13.0 L 80494-0) NRBC/100 WBC (test See_Comment [Automat ed code = 0126651472) message] The system which generated this result transmit meng reference range : 0.0 - 10.0 /100 WBCs. The reference range was not used to interpret this result as normal/abnormal . NRBC x10^3 (test code <0.01 See_Comment [Auto mated = 9380223025) message] The system which generated this result transmit meng reference range : 10*3/?L. The reference range was not used to interpret this result as normal/abnormal . GRAN MAT (NEUT) % 89.5 % (test code = 770-8) IMM GRAN % (test code 0.60 % = 7261382995) LYMPH % (test code = 3.7 % 736-9) MONO % (test code = 5.7 % 5905-5) EOS % (test code = 0.0 % 713-8) BASO % (test code = 0.5 % 706-2) GRAN MAT x10^3(ANC) 10.10 10*3/uL 1.99-6.95 H (test code = 6543117860) IMM GRAN x10^3 (test 0.07 10*3/uL 0.00-0.06 H code = 6604662192) LYMPH x10^3 (test code 0.42 10*3/uL 1.09-3.23 L = 731-0) MONO x10^3 (test code 0.64 10*3/uL 0.36-1.02 = 742-7) EOS x10^3 (test code = <0.03 0.06-0.53 L 711-2) BASO x10^3 (test code 0.06 10*3/uL 0.01-0.09 = 704-7) Lab Interpretation Abnormal (test code = 86772-3) [facility] with Cmlczrgemeqq6094-07-09 00:59:59 Test Item Value Reference Range Interpretation Comments WBC (test code = See_Comment H [Automated 6690-2) message] The system which generated this result transmit meng reference range : 4.20 - 10.70 10*3/?L. The reference range was not used to interpret this result as normal/abnormal . RBC (test code = See_Comment H [Automated 789-8) message] The system which generated this result transmit meng reference range : 4.26 - 5.52 10*6/?L. The reference range was not used to interpret this result as normal/abnormal . HGB (test code = 18.6 g/dL 12.2-16.4 H 718-7) HCT (test code = 54.3 % 38.4-49.3 H 4544-3) MCV (test code = 96.8 fL 81.7-95.6 H 787-2) MCH (test code = 33.2 pg 26.1-32.7 H 785-6) MCHC (test code = 34.3 g/dL 31.2-35.0 786-4) RDW-SD (test code = 50.4 fL 38.5-51.6 06498-5) RDW-CV (test code = 14.2 % 12.1-15.4 788-0) PLT (test code = See_Comment [Automated 777-3) message] The system which generated this result transmit meng reference range : 150 - 328 10*3/ ?L. The reference range was not u sed to interpret th is result as normal/abnormal . MPV (test code = 9.5 fL 9.8-13.0 L 11421-4) NRBC/100 WBC (test See_Comment [Automat ed code = 8151153001) message] The system which generated this result transmit meng reference range : 0.0 - 10.0 /100 WBCs. The reference range was not used to interpret this result as normal/abnormal . NRBC x10^3 (test code <0.01 See_Comment [Auto mated = 1247014089) message] The system which generated this result transmit meng reference range : 10*3/?L. The reference range was not used to interpret this result as normal/abnormal . GRAN MAT (NEUT) % 89.5 % (test code = 770-8) IMM GRAN % (test code 0.60 % = 9911100879) LYMPH % (test code = 3.7 % 736-9) MONO % (test code = 5.7 % 5905-5) EOS % (test code = 0.0 % 713-8) BASO % (test code = 0.5 % 706-2) GRAN MAT x10^3(ANC) 10.10 10*3/uL 1.99-6.95 H (test code = 2332209357) IMM GRAN x10^3 (test 0.07 10*3/uL 0.00-0.06 H code = 7291119358) LYMPH x10^3 (test code 0.42 10*3/uL 1.09-3.23 L = 731-0) MONO x10^3 (test code 0.64 10*3/uL 0.36-1.02 = 742-7) EOS x10^3 (test code = <0.03 0.06-0.53 L 711-2) BASO x10^3 (test code 0.06 10*3/uL 0.01-0.09 = 704-7) Lab Interpretation Abnormal (test code = 93473-5) [facility] [id number] 05:15:13 Test Item Value Reference Interpretation Comments Range TROPONIN I (test 0.011 ng/mL See_Comment [Automated code = 7449457849) message] The system which generated this result transmitted reference range : <=0.034. The reference range was not used to interpret this result as normal/abnormal . BERYL (test code = Reference (Normal) BERYL) Range (defined by the 99th percentile reference limit): <= 0.034 ng/mL Note: Cardiac troponin begins to rise 3-4 hours after the onset of ischemia. Repeat in 4-6 hours if the sample was drawn within 3-4 hours of the onset of the symptom and found normal. Diagnosis of myocardial injury is made with acute changes in cTn concentrations with at least one serial sample above the 99th percentile upper reference limit (URL), taken together with the patient's clinical presentation. Biotin has been reported to cause a negative bias, interpret results relative to patient's use of biotin. Lab Interpretation Normal (test code = 86916-5) [facility]vineCOMP. METABOLIC PANEL (33079)2020-10-31 05:04:17 Test Item Value Reference Range Interpretation Comments NA (test code = 141 mmol/L 135-145 8441793651) K (test code = 3.1 mmol/L 3.5-5.0 L 8209515808) CL (test code = 105 mmol/L 98-108 4043042136) CO2 TOTAL (test code = 24 mmol/L 23-31 2557274623) AGAP (test code = 2-16 4503151418) BUN (test code = 2 mg/dL 7-23 L 9433410774) GLUCOSE (test code = 96 mg/dL 70-110 6871968393) CREATININE (test code = 0.51 mg/dL 0.60-1.25 L 2095391127) TOTAL BILI (test code = 0.6 mg/dL 0.1-1.4 5489978482) CALCIUM (test code = 9.7 mg/dL 8.6-10.6 3727459701) T PROTEIN (test code = 7.4 g/dL 6.3-8.2 4792186957) ALBUMIN (test code = 4.5 g/dL 3.5-5.0 6887836888) ALK PHOS (test code = 106 U/L 34-122 9598327162) ALTv (test code = 32 U/L 5-50 2-6) AST(SGOT) (test code = 36 U/L 13-40 6894398259) eGFR (test code = mL/min/1.73m2 9698209627) BERYL (test code = BERYL) Association of Glomerular Filtration Rate (GFR) and Staging of Kidney Disease* + --+ --+ ------+| GFR (mL/min/1.73 m2) ?| With Kidney Damage ?| ?Without Kidney Damage+ --------+ --------+ +| ?>90 ?| ?Stage one ?| ? Normal ?+ ---+ ---+ -------+| ?60-89 ?| ?Stage two ?| ? Decreased GFR ? + --+ --+ ------+| ?30-59 ?| ?Stage three ?| ? Stage three ? + --+ --+ ------+| ?15-29 ?| ?Stage four ? | ? Stage four ?+ ---+ ---+ -------+| ?<15 (or dialysis) ? ?| ?Stage five ? | ? Stage five ?+ ---+ ---+ -------+ *Each stage assumes the associated GFR level has been in effect for at least three months. ?Stages 1 to 5, with or without kidney disease, indicate chronic kidney disease. Notes: Determination of stages one and two (with eGFR >59mL/min/1.73 m2) requires estimation of kidney damage for at least three months as defined by structural or functional abnormalities of the kidney, manifested by either:Pathological abnormalities or Markers of kidney damage (including abnormalities in the composition of the blood or urine or abnormalities in imaging tests). Lab Interpretation Abnormal (test code = 52052-4) [facility]21-[facility] 05:03:36 Test Item Value Reference Range Interpretation Comments LIPASE (test code = 8378167290) 290 U/L 0-220 H Lab Interpretation (test code = Abnormal 28064-4) [facility]vine[facility] WITH [id number] 04:47:37 Test Item Value Reference Range Interpretation Comments WBC (test code = See_Comment [Automated 6690-2) message] The sy stem which generated this result transmitted reference range : 4.20 - 10.70 10*3/?L. The reference range was not used to interpret this result as normal/abnormal . RBC (test code = See_Comment [Automated 789-8) message] The sy stem which generated this result transmitted reference range : 4.26 - 5.52 10*6/?L. The reference range was not used to interpret this result as normal/abnormal . HGB (test code = 15.2 g/dL 12.2-16.4 718-7) HCT (test code = 45.1 % 38.4-49.3 4544-3) MCV (test code = 100.0 fL 81.7-95.6 H 787-2) MCH (test code = 33.7 pg 26.1-32.7 H 785-6) MCHC (test code = 33.7 g/dL 31.2-35.0 786-4) RDW-SD (test code = 51.8 fL 38.5-51.6 H 75763-7) RDW-CV (test code = 14.1 % 12.1-15.4 788-0) PLT (test code = See_Comment [Automated 777-3) message] The sy stem which generated this result transmitted reference range : 150 - 328 10*3/ ?L. The reference r kevin was not used to interpret this result as normal/abnormal . MPV (test code = 9.6 fL 9.8-13.0 L 00869-6) NRBC/100 WBC (test See_Comment [Automat ed code = 3313224975) message] The system which generated this result transmitted reference range : 0.0 - 10.0 /100 WBCs. The refer ence range was not u sed to interpret th is result as normal/abnormal . NRBC x10^3 (test code <0.01 See_Comment [Auto mated = 1376805199) message] The s ystem which generated this result transmitted reference range : 10*3/?L. The reference range was not used to interpret this result as normal/abnormal . GRAN MAT (NEUT) % 73.5 % (test code = 770-8) IMM GRAN % (test code 1.00 % = 2221117311) LYMPH % (test code = 13.3 % 736-9) MONO % (test code = 8.7 % 5905-5) EOS % (test code = 2.5 % 713-8) BASO % (test code = 1.0 % 706-2) GRAN MAT x10^3(ANC) 5.94 10*3/uL 1.99-6.95 (test code = 8813595055) IMM GRAN x10^3 (test 0.08 10*3/uL 0.00-0.06 H code = 5768685351) LYMPH x10^3 (test code 1.07 10*3/uL 1.09-3.23 L = 731-0) MONO x10^3 (test code 0.70 10*3/uL 0.36-1.02 = 742-7) EOS x10^3 (test code = 0.20 10*3/uL 0.06-0.53 711-2) BASO x10^3 (test code 0.08 10*3/uL 0.01-0.09 = 704-7) Lab Interpretation Abnormal (test code = 12262-1) [facility]vine[facility]INAL[facility]IS2021-07-20 08:53:08 Test Item Value Reference Range Interpretation Comments APPEARANCE (test code = Clear Clear 2394677191) COLOR (test code = Yellow Yellow 4042823485) PH (test code = 4.8-8.0 4294395619) SP GRAVITY (test code = 1.003-1.030 H 5090777766) GLU U QUAL (test code = Normal Normal 0519856148) BLOOD (test code = Negative Negative 3402906075) KETONES (test code = Negative Negative 3023179043) PROTEIN (test code = Negative Negative 2887-8) UROBILIN (test code = Normal Normal 1336920373) BILIRUBIN (test code = Negative Negative 8085890853) NITRITE (test code = Negative Negative 4557666731) LEUK CAMMIE (test code = Negative Negative 6713708979) RBC/HPF (test code = See_Comment [Autom ated message] 8994830100) The system Lumi[employer] generated this result transmitted ref erence range: 0 - 3 HP F. The reference range was not used to int erpret this result as normal/abnormal . WBC/HPF (test code = See_Comment [Autom ated message] 8516539431) The system Lumi[employer] generated this result transmitted ref erence range: 0 - 5 HP F. The reference range was not used to int erpret this result as normal/abnormal . BACTERIA (test code = Negative Negative 7944583199) SQ EPITH (test code = <1 HPF 9037904452) Lab Interpretation (test Abnormal code = 52390-1) [facility]. METABOLIC PANEL (47574)2020-10-18 08:34:01 Test Item Value Reference Range Interpretation Comments NA (test code = 136 mmol/L 135-145 1788545756) K (test code = 4.7 mmol/L 3.5-5.0 8566055025) CL (test code = 105 mmol/L 98-108 4861552464) CO2 TOTAL (test code = 23 mmol/L 23-31 1445807833) AGAP (test code = 2-16 7639552170) BUN (test code = 5 mg/dL 7-23 L 0927131917) GLUCOSE (test code = 101 mg/dL 70-110 3863823615) CREATININE (test code = 0.56 mg/dL 0.60-1.25 L 6613704760) TOTAL BILI (test code = 0.8 mg/dL 0.1-1.2 7915586180) CALCIUM (test code = 9.8 mg/dL 8.6-10.6 8754577540) T PROTEIN (test code = 7.0 g/dL 6.3-8.2 5425023803) ALBUMIN (test code = 4.1 g/dL 3.5-5.0 6198460233) ALK PHOS (test code = 96 U/L 34-122 3576282490) ALTv (test code = 19 U/L 5-50 1742-6) AST(SGOT) (test code = 22 U/L 13-40 0246448260) eGFR (test code = mL/min/1.73m2 2428792747) BERYL (test code = BERYL) Association of Glomerular Filtration Rate (GFR) and Staging of Kidney Disease* + --+ --+ ------+| GFR (mL/min/1.73 m2) ?| With Kidney Damage ?| ?Without Kidney Damage+ --------+ --------+ +| ?>90 ?| ?Stage one ?| ? Normal ?+ ---+ ---+ -------+| ?60-89 ?| ?Stage two ?| ? Decreased GFR ? + --+ --+ ------+| ?30-59 ?| ?Stage three ?| ? Stage three ? + --+ --+ ------+| ?15-29 ?| ?Stage four ? | ? Stage four ?+ ---+ ---+ -------+| ?<15 (or dialysis) ? ?| ?Stage five ? | ? Stage five ?+ ---+ ---+ -------+ *Each stage assumes the associated GFR level has been in effect for at least three months. ?Stages 1 to 5, with or without kidney disease, indicate chronic kidney disease. Notes: Determination of stages one and two (with eGFR >59mL/min/1.73 m2) requires estimation of kidney damage for at least three months as defined by structural or functional abnormalities of the kidney, manifested by either:Pathological abnormalities or Markers of kidney damage (including abnormalities in the composition of the blood or urine or abnormalities in imaging tests). Lab Interpretation Abnormal (test code = 93569-6) [facility] 08[facility]:01 Test Item Value Reference Range Interpretation Comments LIPASE (test code = 4784962741) 266 U/L 0-220 H Lab Interpretation (test code = Abnormal 00455-5) [facility] WITH [id number] 08:06:58 Test Item Value Reference Range Interpretation Comments WBC (test code = See_Comment [Automated 2377-2) message] The sy stem which generated this result transmitted reference range : 4.20 - 10.70 10*3/?L. The reference range was not used to interpret this result as normal/abnormal . RBC (test code = See_Comment [Automated 993-8) message] The sy stem which generated this result transmitted reference range : 4.26 - 5.52 10*6/?L. The reference range was not used to interpret this result as normal/abnormal . HGB (test code = 14.8 g/dL 12.2-16.4 718-7) HCT (test code = 45.1 % 38.4-49.3 4544-3) MCV (test code = 105.1 fL 81.7-95.6 H 787-2) MCH (test code = 34.5 pg 26.1-32.7 H 785-6) MCHC (test code = 32.8 g/dL 31.2-35.0 786-4) RDW-SD (test code = 57.9 fL 38.5-51.6 H 78252-3) RDW-CV (test code = 14.8 % 12.1-15.4 788-0) PLT (test code = See_Comment [Automated 777-3) message] The sy stem which generated this result transmitted reference range : 150 - 328 10*3/ ?L. The reference r kevin was not used to interpret this result as normal/abnormal . MPV (test code = 9.9 fL 9.8-13.0 19034-9) NRBC/100 WBC (test See_Comment [Automat ed code = 6773525243) message] The system which generated this result transmitted reference range : 0.0 - 10.0 /100 WBCs. The refer ence range was not u sed to interpret th is result as normal/abnormal . NRBC x10^3 (test code <0.01 See_Comment [Auto mated = 1415103310) message] The s ystem which generated this result transmitted reference range : 10*3/?L. The reference range was not used to interpret this result as normal/abnormal . GRAN MAT (NEUT) % 73.1 % (test code = 770-8) IMM GRAN % (test code 1.00 % = 9418028989) LYMPH % (test code = 11.1 % 736-9) MONO % (test code = 11.7 % 5905-5) EOS % (test code = 2.6 % 713-8) BASO % (test code = 0.5 % 706-2) GRAN MAT x10^3(ANC) 6.88 10*3/uL 1.99-6.95 (test code = 3991579450) IMM GRAN x10^3 (test 0.09 10*3/uL 0.00-0.06 H code = 6895838487) LYMPH x10^3 (test code 1.04 10*3/uL 1.09-3.23 L = 731-0) MONO x10^3 (test code 1.10 10*3/uL 0.36-1.02 H = 742-7) EOS x10^3 (test code = 0.24 10*3/uL 0.06-0.53 711-2) BASO x10^3 (test code 0.05 10*3/uL 0.01-0.09 = 704-7) Lab Interpretation Abnormal (test code = 13852-5) [facility]vine[facility] Metabolic [id number] 08:17:56 Test Item Value Reference Range Interpretation Comments NA (test code = 143 mmol/L 135-145 4490796845) K (test code = 3.8 mmol/L 3.5-5.0 5213177636) CL (test code = 106 mmol/L 98-108 5364960217) CO2 TOTAL (test code = 25 mmol/L 23-31 7580640177) AGAP (test code = 2-16 6774270569) BUN (test code = 4 mg/dL 7-23 L 4396067438) GLUCOSE (test code = 121 mg/dL 70-110 H 0971580774) CREATININE (test code = 0.52 mg/dL 0.60-1.25 L 6401018634) TOTAL BILI (test code = 0.5 mg/dL 0.1-1.4 5852088079) CALCIUM (test code = 9.8 mg/dL 8.6-10.6 9331969879) T PROTEIN (test code = 7.2 g/dL 6.3-8.2 0644284358) ALBUMIN (test code = 4.2 g/dL 3.5-5.0 4800810364) ALK PHOS (test code = 110 U/L 34-122 3843734376) ALTv (test code = 17 U/L 5-50 1742-6) AST(SGOT) (test code = 25 U/L 13-40 0251469811) eGFR (test code = mL/min/1.73m2 9529377681) BERYL (test code = BERYL) Association of Glomerular Filtration Rate (GFR) and Staging of Kidney Disease* + --+ --+ ------+| GFR (mL/min/1.73 m2) ?| With Kidney Damage ?| ?Without Kidney Damage+ --------+ --------+ +| ?>90 ?| ?Stage one ?| ? Normal ?+ ---+ ---+ -------+| ?60-89 ?| ?Stage two ?| ? Decreased GFR ? + --+ --+ ------+| ?30-59 ?| ?Stage three ?| ? Stage three ? + --+ --+ ------+| ?15-29 ?| ?Stage four ? | ? Stage four ?+ ---+ ---+ -------+| ?<15 (or dialysis) ? ?| ?Stage five ? | ? Stage five ?+ ---+ ---+ -------+ *Each stage assumes the associated GFR level has been in effect for at least three months. ?Stages 1 to 5, with or without kidney disease, indicate chronic kidney disease. Notes: Determination of stages one and two (with eGFR >59mL/min/1.73 m2) requires estimation of kidney damage for at least three months as defined by structural or functional abnormalities of the kidney, manifested by either:Pathological abnormalities or Markers of kidney damage (including abnormalities in the composition of the blood or urine or abnormalities in imaging tests). Lab Interpretation Abnormal (test code = 75466-5) [facility]vineLip[facility], [id number] 08:17:36 Test Item Value Reference Range Interpretation Comments LIPASE (test code = 9021628933) 446 U/L 0-220 H Lab Interpretation (test code = Abnormal 91981-4) [facility] with [id number] 07:50:52 Test Item Value Reference Range Interpretation Comments WBC (test code = See_Comment [Automated 0490-2) message] The sy stem which generated this result transmitted reference range : 4.20 - 10.70 10*3/?L. The reference range was not used to interpret this result as normal/abnormal . RBC (test code = See_Comment L [Automated 689-8) message] The sy stem which generated this result transmitted reference range : 4.26 - 5.52 10*6/?L. The reference range was not used to interpret this result as normal/abnormal . HGB (test code = 14.4 g/dL 12.2-16.4 718-7) HCT (test code = 42.5 % 38.4-49.3 4544-3) MCV (test code = 102.2 fL 81.7-95.6 H 787-2) MCH (test code = 34.6 pg 26.1-32.7 H 785-6) MCHC (test code = 33.9 g/dL 31.2-35.0 786-4) RDW-SD (test code = 54.4 fL 38.5-51.6 H 84574-0) RDW-CV (test code = 14.6 % 12.1-15.4 788-0) PLT (test code = See_Comment [Automated 777-3) message] The sy stem which generated this result transmitted reference range : 150 - 328 10*3/ ?L. The reference r kevin was not used to interpret this result as normal/abnormal . MPV (test code = 10.0 fL 9.8-13.0 74604-8) NRBC/100 WBC (test See_Comment [Automat ed code = 5475433646) message] The system which generated this result transmitted reference range : 0.0 - 10.0 /100 WBCs. The refer ence range was not u sed to interpret th is result as normal/abnormal . NRBC x10^3 (test code <0.01 See_Comment [Auto mated = 6910717721) message] The s ystem which generated this result transmitted reference range : 10*3/?L. The reference range was not used to interpret this result as normal/abnormal . GRAN MAT (NEUT) % 73.8 % (test code = 770-8) IMM GRAN % (test code 1.10 % = 1918794784) LYMPH % (test code = 13.6 % 736-9) MONO % (test code = 8.4 % 5905-5) EOS % (test code = 2.1 % 713-8) BASO % (test code = 1.0 % 706-2) GRAN MAT x10^3(ANC) 7.41 10*3/uL 1.99-6.95 H (test code = 1116842415) IMM GRAN x10^3 (test 0.11 10*3/uL 0.00-0.06 H code = 7236538731) LYMPH x10^3 (test code 1.37 10*3/uL 1.09-3.23 = 731-0) MONO x10^3 (test code 0.84 10*3/uL 0.36-1.02 = 742-7) EOS x10^3 (test code = 0.21 10*3/uL 0.06-0.53 711-2) BASO x10^3 (test code 0.10 10*3/uL 0.01-0.09 H = 704-7) Lab Interpretation Abnormal (test code = 47051-7) [facility]vineUrinalysis2021-06-30 15:44:14 Test Item Value Reference Range Interpretation Comments APPEARANCE (test code = Clear Clear 5282966885) COLOR (test code = Yellow Yellow 6904767707) PH (test code = 4.8-8.0 9444045210) SP GRAVITY (test code = 1.003-1.030 7753730229) GLU U QUAL (test code = Normal Normal 5393665951) BLOOD (test code = Negative Negative 4587851725) KETONES (test code = Negative Negative 1958647394) PROTEIN (test code = Negative Negative 2887-8) UROBILIN (test code = Normal Normal 1615091998) BILIRUBIN (test code = Negative Negative 5261486232) NITRITE (test code = Negative Negative 8918791558) LEUK CAMMIE (test code = Negative Negative 1692660985) RBC/HPF (test code = See_Comment [Autom ated message] 5489027632) The system Lumiata generated this result transmitted ref erence range: 0 - 3 HP F. The reference range was not used to int erpret this result as normal/abnormal . WBC/HPF (test code = See_Comment [Autom ated message] 2143919624) The system Lumi[employer] generated this result transmitted ref erence range: 0 - 5 HP F. The reference range was not used to int erpret this result as normal/abnormal . BACTERIA (test code = Negative Negative 8913135749) MUCOUS (test code = Slight Negative LPF A 4990136391) SQ EPITH (test code = <1 HPF 6745579483) Lab Interpretation (test Abnormal code = 94001-1) [facility]rapevineaPTT2021-06-30 14:31:36 Test Item Value Reference Range Interpretation Comments APTT Patient (test See_Comment [Automat ed code = 3173-2) message] The system which generated this result transmitted reference range : 23 - 38 Seconds . The reference range was not used to interpr et this result as normal/abnormal . BERYL (test code = BERYL) The [facility] patient population mean normal value for aPTT is 30 seconds. Lab Interpretation Normal (test code = 93519-0) [facility] GrapevineProthrombin Time (PT) / [id number] 14:29:40 Test Item Value Reference Range Interpretation Comments PROTIME PATIENT (test See_Comment [Auto mated message] code = 5964-2) The system wh ich generated this result transmitted ref erence range: 12.0 - 1 4.7 Seconds. The re ference range was not u sed to interpret this result as normal/abnor mal. INR (test code = 6301-6) Nor mal INR <1.1; Warfarin Therap eutic range 2.0 to 3. 0 or 2.5 to 3.5, dep ending upon the indica tions. Lab Interpretation (test Normal code = 79935-0) [facility] GrapevineTroponin [id number] 14:26:18 Test Item Value Reference Interpretation Comments Range TROPONIN I (test 0.008 ng/mL See_Comment [Automated code = 4740388077) message] The system which generated this result transmitted reference range : <=0.034. The reference range was not used to interpret this result as normal/abnormal . BERYL (test code = Reference (Normal) BERYL) Range (defined by the 99th percentile reference limit): <= 0.034 ng/mL Note: Cardiac troponin begins to rise 3-4 hours after the onset of ischemia. Repeat in 4-6 hours if the sample was drawn within 3-4 hours of the onset of the symptom and found normal. Diagnosis of myocardial injury is made with acute changes in cTn concentrations with at least one serial sample above the 99th percentile upper reference limit (URL), taken together with the patient's clinical presentation. Biotin has been reported to cause a negative bias, interpret results relative to patient's use of biotin. Lab Interpretation Normal (test code = 47560-1) [facility] GrapevineN-TERMINAL [id number] 14:22:55 Test Item Value Reference Range Interpretation Comments NT-proBNP (test code 248 pg/mL See_Comment H [Autom ated = 6219270482) message] The system which generated this result transmitted reference range : <=125. The reference range was not used to interpret this result as normal/abnormal . BERYL (test code = BERYL) Biotin has been reported to cause a negative bias, interpret results relative to patient's use of biotin. Lab Interpretation Abnormal (test code = 24985-0) [facility]vineBasi Metabolic Panel (NA, K, CL, CO2, GLUCOSE, BUN, CREATININE, CA)2020-09-28 14:15:37 Test Item Value Reference Range Interpretation Comments NA (test code = 140 mmol/L 135-145 0086369364) K (test code = 3.5 mmol/L 3.5-5.0 9309807867) CL (test code = 107 mmol/L 98-108 4183044814) CO2 TOTAL (test code = 24 mmol/L 23-31 0718477996) AGAP (test code = 2-16 8436486598) BUN (test code = 2 mg/dL 7-23 L 0732034536) GLUCOSE (test code = 106 mg/dL 70-110 6184819276) CREATININE (test code = 0.49 mg/dL 0.60-1.25 L 6470134980) CALCIUM (test code = 9.7 mg/dL 8.6-10.6 4012397465) eGFR (test code = mL/min/1.73m2 5784684907) BERYL (test code = BERYL) Association of Glomerular Filtration Rate (GFR) and Staging of Kidney Disease* + --+ --+ ------+| GFR (mL/min/1.73 m2) ?| With Kidney Damage ?| ?Without Kidney Damage+ --------+ --------+ +| ?>90 ?| ?Stage one ?| ? Normal ?+ ---+ ---+ -------+| ?60-89 ?| ?Stage two ?| ? Decreased GFR ? + --+ --+ ------+| ?30-59 ?| ?Stage three ?| ? Stage three ? + --+ --+ ------+| ?15-29 ?| ?Stage four ? | ? Stage four ?+ ---+ ---+ -------+| ?<15 (or dialysis) ? ?| ?Stage five ? | ? Stage five ?+ ---+ ---+ -------+ *Each stage assumes the associated GFR level has been in effect for at least three months. ?Stages 1 to 5, with or without kidney disease, indicate chronic kidney disease. Notes: Determination of stages one and two (with eGFR >59mL/min/1.73 m2) requires estimation of kidney damage for at least three months as defined by structural or functional abnormalities of the kidney, manifested by either:Pathological abnormalities or Markers of kidney damage (including abnormalities in the composition of the blood or urine or abnormalities in imaging tests). Lab Interpretation Abnormal (test code = 02859-7) [facility]vineHepatic Function Panel (ALB, T.PRO, BILI T, BU/BC, ALT, AST, ALK PHOS)2020-09-28 14:15:37 Test Item Value Reference Range Interpretation Comments TOTAL BILI (test code = 1892809861) 0.7 mg/dL 0.1-1.1 BILI UNCON (test code = 9017444226) 0.5 mg/dL 0.1-1.1 BILI CONJ (test code = 6605419607) 0.0 mg/dL 0.0-0.3 T PROTEIN (test code = 8734353359) 7.2 g/dL 6.3-8.2 ALBUMIN (test code = 9737758225) 3.9 g/dL 3.5-5.0 ALK PHOS (test code = 0125699030) 97 U/L 34-122 ALTv (test code = 1742-6) 14 U/L 5-50 AST(SGOT) (test code = 9083891775) 21 U/L 13-40 Lab Interpretation (test code = Normal 47413-8) [facility] GrapevineLipase [id number] 14:15:17 Test Item Value Reference Range Interpretation Comments LIPASE (test code = 4080244317) 237 U/L 0-220 H Lab Interpretation (test code = Abnormal 96704-9) [facility]vineCT ABDOMEN PELVIS WO [id number] 14:10:55CT Abdomen and Pelvis without contrast. CLINICAL HISTORY: Acute nonlocalized abdominal pain. TECHNIQUE: Multidetector helical CT acquisition was obtained from the lungbases to the greater trochanters without oral and IV contrast. ?The imageswere reviewed in lung, bone, and soft tissue windows. FINDINGS: ?Absence of intravenous contrast limits evaluation of the solidorgans. Evaluation of the bowel is also limited by lack of oral contrast.Comparison is made with previous study of 08/26/2020. Lower lungs: Clear. The right coronary atherosclerosis noted. Probablesmall hiatal hernia. No pleural effusion.Liver, Gallbladder and Spleen: S/P cholecystectomy. Liver is 15.8 cm inlength with diffuse hepatic steatosis and spleen is 13 x 4.8 cm in size.Biliary ducts and the pancreatic duct appear of normal size. Peritoneum: ?No free air or free fluid. No lymphadenopathy. Pancreas and Adrenals: ?Unremarkable adrenal gland. Interval improvementwith minimal residual signs of pancreatitis with congestion of fatsurrounding the head/uncinate process regions of the pancreas. Kidneys and Ureters: Faint 2 mm stone in the middle calyx of the rightkidney. No hydroureter or hydronephrosis. ? Vessels: Atherosclerosis. Retroperitoneum: No abnormal fluid or lymphadenopathy. Bowel: Moderate to severe diverticulosis of the sigmoid and descendingcolon with additional scattered diverticula suspected throughout rest oflargebowel without any acute changes. Appendix is not definitelyvisualized, however, there are no CT signs of acute appendicitis. Bladder ?and Reproductive Organs: Unremarkable. Bones: Disc disease at L2-L3, less at L3-L4. No signs of AVN in the femoralheads. Soft tissues: Congestion of the subcutaneous fat in the lower anteriorabdominal wall noted, more on the left side which could be from recentsubcutaneous administration of medication. 2 x 1 cm sized fat-containing of omental hernia CONCLUSION:1. Interval improvement with minimal residual congestion of theperipancreatic fat surrounding the head and uncinate process regions.2. S/P cholecystectomy.3. 2 mm nonobstructing stone in the right kidney.4. Hepatic steatosis, coronary atherosclerosis and atherosclerosis of theabdominal aorta without an aneurysm.5. Diverticulosis of large bowel without any acute changes. [facility], Radiant Results Inft User - 09/28/2020 9:[address] Abdomen and Pelvis without contrast.CLINICAL HISTORY: Acute nonlocalized abdominal pain.TECHNIQUE: Multidetector helical CT acquisition was obtained from the lungbases to the greater trochanters without oral and IV c ontrast. The imageswere reviewed in lung, bone, and soft tissue windows.FINDINGS: Absence of intravenous contrast limits evaluation of the solidorgans. Evaluation of the bowel is also limited by lackof oral contrast.Comparison is made with previous study of 08/26/2020. Lower lungs: Clear. The right coronary atherosclerosis noted. Probablesmall hiatal hernia. No pleural effusion.Liver, Gallbladder and Spleen: S/P cholecystectomy. Liver is 15.8 cm inlength with diffuse hepatic steatosis and spleen is 13 x 4.8 cm in size.Biliary ducts and the pancreatic duct appear of normal size.Peritoneum: No free air or free fluid. No lymphadenopathy.Pancreas and Adrenals: Unremarkable adrenal gland. Interval improvementwith minimal residual signs of pancreatitis with congestion of fatsurrounding the head/uncinate process regions of the pancreas.Kidneys and Ureters: Faint 2 mm stone in the middle calyx of the rightkidney. No hydroureter or hydronephrosis. Vessels: Atherosclerosis.Retroperitoneum: No abnormal fluid or lymphadenopathy.Bowel: Moderate to severe diverticulosis of the sigmoid and descendingcolon with additional scattered diverticula suspected throughout rest oflarge bowel without any acute changes. Appendix is not definitelyvisualized, however, there are no CT signs of acute appendicitis.Bladder and Reproductive Organs: Unremarkable. Bones: Disc disease at L2-L3, less at L3-L4. No signs ofAVN in the femoralheads.Soft tissues: Congestion of the subcutaneous fat in the lower anteriorabdominal wall noted, more on the left side which could be from recentsubcutaneous administration of medication.2 x 1 cm sized fat-containing of omental herniaCONCLUSION:1. Interval improvement with minimal residual congestion of theperipancreatic fat surrounding the head and uncinate process regions.2. S/P cholecystectomy.3. 2 mm nonobstructing stone in the right kidney.4. Hepatic steatosis, coronary atherosclerosis and atherosclerosis of theabdominal aorta without an aneurysm.5. Diverticulosis of large bowel without any acute changes.[facility]vineCBC with Differential 2020-09-28 13:54:15 Test Item Value Reference Range Interpretation Comments WBC (test code = See_Comment H [Automated 6690-2) message] The sy stem which generated this result transmitted reference range : 4.20 - 10.70 10*3/?L. The reference range was not used to interpret this result as normal/abnormal . RBC (test code = See_Comment L [Automated 789-8) message] The sy stem which generated this result transmitted reference range : 4.26 - 5.52 10*6/?L. The reference range was not used to interpret this result as normal/abnormal . HGB (test code = 14.6 g/dL 12.2-16.4 718-7) HCT (test code = 42.6 % 38.4-49.3 4544-3) MCV (test code = 103.4 fL 81.7-95.6 H 787-2) MCH (test code = 35.4 pg 26.1-32.7 H 785-6) MCHC (test code = 34.3 g/dL 31.2-35.0 786-4) RDW-SD (test code = 54.1 fL 38.5-51.6 H 25081-8) RDW-CV (test code = 14.2 % 12.1-15.4 788-0) PLT (test code = See_Comment [Automated 777-3) message] The sy stem which generated this result transmitted reference range : 150 - 328 10*3/ ?L. The reference r kevin was not used to interpret this result as normal/abnormal . MPV (test code = 10.1 fL 9.8-13.0 09945-9) NRBC/100 WBC (test See_Comment [Automat ed code = 7905761029) message] The system which generated this result transmitted reference range : 0.0 - 10.0 /100 WBCs. The refer ence range was not u sed to interpret th is result as normal/abnormal . NRBC x10^3 (test code <0.01 See_Comment [Auto mated = 3045890844) message] The s ystem which generated this result transmitted reference range : 10*3/?L. The reference range was not used to interpret this result as normal/abnormal . GRAN MAT (NEUT) % 76.6 % (test code = 770-8) IMM GRAN % (test code 1.10 % = 2639929975) LYMPH % (test code = 9.4 % 736-9) MONO % (test code = 9.1 % 5905-5) EOS % (test code = 2.9 % 713-8) BASO % (test code = 0.9 % 706-2) GRAN MAT x10^3(ANC) 9.32 10*3/uL 1.99-6.95 H (test code = 4986619514) IMM GRAN x10^3 (test 0.13 10*3/uL 0.00-0.06 H code = 7328150406) LYMPH x10^3 (test code 1.14 10*3/uL 1.09-3.23 = 731-0) MONO x10^3 (test code 1.11 10*3/uL 0.36-1.02 H = 742-7) EOS x10^3 (test code = 0.35 10*3/uL 0.06-0.53 711-2) BASO x10^3 (test code 0.11 10*3/uL 0.01-0.09 H = 704-7) Lab Interpretation Abnormal (test code = 59497-1) [facility] GrapevineLactic Acid Whole [id number] 13:48:24 Test Item Value Reference Range Interpretation Comments LACTIC ACID (test code = 1.62 mmol/L 0.50-2.20 3395059210) Lab Interpretation (test code = Normal 87576-2) [place] [facility] [id number] 11:31:55 Test Item Value Reference Range Interpretation Comments WBC (test code = See_Comment [Automated 9290-2) message] The sy stem which generated this result transmitted reference range : 4.20 - 10.70 10*3/?L. The reference range was not used to interpret this result as normal/abnormal . RBC (test code = See_Comment L [Automated 052-8) message] The sy stem which generated this result transmitted reference range : 4.26 - 5.52 10*6/?L. The reference range was not used to interpret this result as normal/abnormal . HGB (test code = 15.0 g/dL 12.2-16.4 718-7) HCT (test code = 44.2 % 38.4-49.3 4544-3) MCV (test code = 106.8 fL 81.7-95.6 H 787-2) MCH (test code = 36.2 pg 26.1-32.7 H 785-6) MCHC (test code = 33.9 g/dL 31.2-35.0 786-4) RDW-SD (test code = 57.1 fL 38.5-51.6 H 63366-1) RDW-CV (test code = 14.5 % 12.1-15.4 788-0) PLT (test code = See_Comment [Automated 777-3) message] The sy stem which generated this result transmitted reference range : 150 - 328 10*3/ ?L. The reference r kevin was not used to interpret this result as normal/abnormal . MPV (test code = 10.6 fL 9.8-13.0 84073-6) NRBC/100 WBC (test See_Comment [Automat ed code = 9673161407) message] The system which generated this result transmitted reference range : 0.0 - 10.0 /100 WBCs. The refer ence range was not u sed to interpret th is result as normal/abnormal . NRBC x10^3 (test code <0.01 See_Comment [Auto mated = 8665305729) message] The s ystem which generated this result transmitted reference range : 10*3/?L. The reference range was not used to interpret this result as normal/abnormal . GRAN MAT (NEUT) % 78.6 % (test code = 770-8) IMM GRAN % (test code 2.30 % = 6748422668) LYMPH % (test code = 7.7 % 736-9) MONO % (test code = 7.2 % 5905-5) EOS % (test code = 3.3 % 713-8) BASO % (test code = 0.9 % 706-2) GRAN MAT x10^3(ANC) 8.29 10*3/uL 1.99-6.95 H (test code = 0148210297) IMM GRAN x10^3 (test 0.24 10*3/uL 0.00-0.06 H code = 0072391191) LYMPH x10^3 (test code 0.81 10*3/uL 1.09-3.23 L = 731-0) MONO x10^3 (test code 0.76 10*3/uL 0.36-1.02 = 742-7) EOS x10^3 (test code = 0.35 10*3/uL 0.06-0.53 711-2) BASO x10^3 (test code 0.09 10*3/uL 0.01-0.09 = 704-7) Lab Interpretation Abnormal (test code = 21630-8) [facility]. METABOLIC PANEL (12825)2020-09-24 10:38:33 Test Item Value Reference Range Interpretation Comments NA (test code = 141 mmol/L 135-145 2723072697) K (test code = 4.1 mmol/L 3.5-5.0 8414732003) CL (test code = 101 mmol/L 98-108 1303810549) CO2 TOTAL (test code = 32 mmol/L 23-31 H 8679772396) AGAP (test code = 2-16 7487921825) BUN (test code = 6 mg/dL 7-23 L 8985822249) GLUCOSE (test code = 82 mg/dL 70-110 6792251554) CREATININE (test code = 0.59 mg/dL 0.60-1.25 L 6664570182) TOTAL BILI (test code = 0.6 mg/dL 0.1-1.0 0693017777) CALCIUM (test code = 9.6 mg/dL 8.6-10.6 8377508441) T PROTEIN (test code = 6.5 g/dL 6.3-8.2 5934115248) ALBUMIN (test code = 3.7 g/dL 3.5-5.0 9274211989) ALK PHOS (test code = 111 U/L 34-122 4662531864) ALTv (test code = 17 U/L 5-50 1742-6) AST(SGOT) (test code = 20 U/L 13-40 1577480992) eGFR (test code = mL/min/1.73m2 3768161033) BERYL (test code = BERYL) Association of Glomerular Filtration Rate (GFR) and Staging of Kidney Disease* + --+ --+ ------+| GFR (mL/min/1.73 m2) ?| With Kidney Damage ?| ?Without Kidney Damage+ --------+ --------+ +| ?>90 ?| ?Stage one ?| ? Normal ?+ ---+ ---+ -------+| ?60-89 ?| ?Stage two ?| ? Decreased GFR ? + --+ --+ ------+| ?30-59 ?| ?Stage three ?| ? Stage three ? + --+ --+ ------+| ?15-29 ?| ?Stage four ? | ? Stage four ?+ ---+ ---+ -------+| ?<15 (or dialysis) ? ?| ?Stage five ? | ? Stage five ?+ ---+ ---+ -------+ *Each stage assumes the associated GFR level has been in effect for at least three months. ?Stages 1 to 5, with or without kidney disease, indicate chronic kidney disease. Notes: Determination of stages one and two (with eGFR >59mL/min/1.73 m2) requires estimation of kidney damage for at least three months as defined by structural or functional abnormalities of the kidney, manifested by either:Pathological abnormalities or Markers of kidney damage (including abnormalities in the composition of the blood or urine or abnormalities in imaging tests). Lab Interpretation Abnormal (test code = 99407-1) [facility] [id number] 15:53:17 Test Item Value Reference Range Interpretation Comments Occult (guaiac) Blood (test code = Negative Negative 2335-8) Lab Interpretation (test code = Normal 83873-5) [facility]2021-[facility]-25 15:32:36 Test Item Value Reference Range Interpretation Comments LIPASE (test code = 3189653449) 170 U/L 0-220 Lab Interpretation (test code = Normal 78233-5) [facility] METABOLIC PANEL (98500)2020-09-23 12:23:15 Test Item Value Reference Range Interpretation Comments NA (test code = 140 mmol/L 135-145 5515378449) K (test code = 4.0 mmol/L 3.5-5.0 7711342298) CL (test code = 106 mmol/L 98-108 0124609116) CO2 TOTAL (test code = 27 mmol/L 23-31 6088553389) AGAP (test code = 2-16 0594091464) BUN (test code = <2 7-23 L 8783056860) GLUCOSE (test code = 80 mg/dL 70-110 3979955015) CREATININE (test code = 0.53 mg/dL 0.60-1.25 L 2715519599) TOTAL BILI (test code = 0.8 mg/dL 0.1-1.4 9691001286) CALCIUM (test code = 8.8 mg/dL 8.6-10.6 6842479965) T PROTEIN (test code = 5.7 g/dL 6.3-8.2 L 4366262713) ALBUMIN (test code = 3.1 g/dL 3.5-5.0 L 1994874964) ALK PHOS (test code = 93 U/L 34-122 0124350309) ALTv (test code = 17 U/L 5-50 1742-6) AST(SGOT) (test code = 24 U/L 13-40 4674357576) eGFR (test code = mL/min/1.73m2 5702593311) BERYL (test code = BERYL) Association of Glomerular Filtration Rate (GFR) and Staging of Kidney Disease* + --+ --+ ------+| GFR (mL/min/1.73 m2) ?| With Kidney Damage ?| ?Without Kidney Damage+ --------+ --------+ +| ?>90 ?| ?Stage one ?| ? Normal ?+ ---+ ---+ -------+| ?60-89 ?| ?Stage two ?| ? Decreased GFR ? + --+ --+ ------+| ?30-59 ?| ?Stage three ?| ? Stage three ? + --+ --+ ------+| ?15-29 ?| ?Stage four ? | ? Stage four ?+ ---+ ---+ -------+| ?<15 (or dialysis) ? ?| ?Stage five ? | ? Stage five ?+ ---+ ---+ -------+ *Each stage assumes the associated GFR level has been in effect for at least three months. ?Stages 1 to 5, with or without kidney disease, indicate chronic kidney disease. Notes: Determination of stages one and two (with eGFR >59mL/min/1.73 m2) requires estimation of kidney damage for at least three months as defined by structural or functional abnormalities of the kidney, manifested by either:Pathological abnormalities or Markers of kidney damage (including abnormalities in the composition of the blood or urine or abnormalities in imaging tests). Lab Interpretation Abnormal (test code = 78545-2) [facility] COVID [id number] 03:57:00COVID DMT InterpretationInterpretation/Recommendations: Molecular NAAT Tests for Active Infection with the SARS-CoV-2 Virus: The patient has currently tested negative for the SARS-CoV-2 virus that causes COVID-19 illness. This most likely indicates that the patient does not have an active infection with the SARS-CoV-2 virus. However, infection is not completely ruled out as the false negative rate for molecular NAAT testing using a nasopharyngeal sample can be up to 30%, mostly dependent on the timing of sample collection in relation to illness onset and any deficiencies in sampling techniques. If the patient has symptoms concerning for COVID-19 illness, a repeat NAAT test (PCR, Rapid ID Now, etc.) should be performed, at which time the SARS-CoV-2 virus - if present - may have reached a detectable viral load (usually peaking by the end of the first week of symptoms). Tests for IgM and/or IgGAntibodies to the SARS-CoV-2 Virus: If the patient develops COVID-19 illness in the future, testingfor IgM and IgG antibodies approximately 3 weeks after illness onset will likely indicate if the patient has produced antibodies to the SARS-CoV-2 virus. However, some patients may take longer to develop detectable antibodies, while some patients who were infected with SARS-CoV-2 may never develop antibodies. While antibodies to SARS-CoV-2 may provide some degree of immunity, at this time the strength and duration of the antibody response is unknown. Interpretation Result Comments:These interpretation comments are based upon all COVID-19 testing the patient has had at [facility], including molecular NAAT testing (more commonly known as PCR testing and Rapid ID Now testing) and antibody testing. It does not take into account any testing that a patient has had outside of the [facility] medical record. [facility]ORATORY SERVICESCOVID Resu [id number] Rapid ID NOW (no units) ? ? Date ? Value ? 09/21/2020 ? Not Detected ? ? ? 08/26/2020 ? Not Detected ? ? ? 08/22/2020 ?Not Detected ? ? ? 02/09/2020 ? Not Detected ? ? ? 01/29/2020 ? Not Detected ? ? ? 01/16/2020 ? Not Detected ? ? ? 01/05/2020 ? Not Detected ? [facility] [id number] 20:16:15 Test Item Value Reference Range Interpretation Comments WBC (test code = See_Comment H [Automated 6690-2) message] The sy stem which generated this result transmitted reference range : 4.20 - 10.70 10*3/?L. The reference range was not used to interpret this result as normal/abnormal . RBC (test code = See_Comment L [Automated 789-8) message] The sy stem which generated this result transmitted reference range : 4.26 - 5.52 10*6/?L. The reference range was not used to interpret this result as normal/abnormal . HGB (test code = 13.2 g/dL 12.2-16.4 718-7) HCT (test code = 39.5 % 38.4-49.3 4544-3) MCV (test code = 106.2 fL 81.7-95.6 H 787-2) MCH (test code = 35.5 pg 26.1-32.7 H 785-6) MCHC (test code = 33.4 g/dL 31.2-35.0 786-4) RDW-SD (test code = 56.8 fL 38.5-51.6 H 83492-4) RDW-CV (test code = 14.4 % 12.1-15.4 788-0) PLT (test code = See_Comment [Automated 777-3) message] The sy stem which generated this result transmitted reference range : 150 - 328 10*3/ ?L. The reference r kevin was not used to interpret this result as normal/abnormal . MPV (test code = 10.4 fL 9.8-13.0 45263-5) NRBC/100 WBC (test See_Comment [Automat ed code = 7943472013) message] The system which generated this result transmitted reference range : 0.0 - 10.0 /100 WBCs. The refer ence range was not u sed to interpret th is result as normal/abnormal . NRBC x10^3 (test code <0.01 See_Comment [Auto mated = 7630171641) message] The s ystem which generated this result transmitted reference range : 10*3/?L. The reference range was not used to interpret this result as normal/abnormal . GRAN MAT (NEUT) % 79.4 % (test code = 770-8) IMM GRAN % (test code 1.20 % = 9535173166) LYMPH % (test code = 8.9 % 736-9) MONO % (test code = 8.5 % 5905-5) EOS % (test code = 1.5 % 713-8) BASO % (test code = 0.5 % 706-2) GRAN MAT x10^3(ANC) 8.72 10*3/uL 1.99-6.95 H (test code = 3574480720) IMM GRAN x10^3 (test 0.13 10*3/uL 0.00-0.06 H code = 5943566572) LYMPH x10^3 (test code 0.98 10*3/uL 1.09-3.23 L = 731-0) MONO x10^3 (test code 0.93 10*3/uL 0.36-1.02 = 742-7) EOS x10^3 (test code = 0.17 10*3/uL 0.06-0.53 711-2) BASO x10^3 (test code 0.05 10*3/uL 0.01-0.09 = 704-7) Lab Interpretation Abnormal (test code = 94421-3) [facility]vineLIPID PAN[facility] (30815)(TOTAL CHOLESTEROL, TRIGLYCERIDES, HDL)2020-09-22 11:08:30 Test Item Value Reference Range Interpretation Comments CHOL (test code = 127 mg/dL 120-200 3930993482) HDL (test code = 41 mg/dL >40 1553542625) HDLC RATIO (test code = See_Comment [Au tomated message] 0636640528) The system [employer] generated this result transmit meng reference range : <=5.0. The refe rence range was not u sed to interpret th is result as normal/abnormal . TRIG (test code = 100 mg/dL 30-170 3098372188) LDL CHOL (test code = 66 mg/dL See_Comment [Auto mated message] 78633-1) The system [employer] generated this result transmit meng reference range : <=160. The refe rence range was not u sed to interpret th is result as normal/abnormal . VLDL (test code = 20 mg/dL 5-60 3339948845) Lab Interpretation (test Normal code = 69723-9) [facility]vineHEPAT[facility] FUNCTION PANEL (73215) (ALB,T.PRO,BILI T,BU/BC,ALT,AST,ALK PHOS)2020-09-22 11:07:50 Test Item Value Reference Range Interpretation Comments TOTAL BILI (test code = 3658305533) 0.7 mg/dL 0.1-1.1 BILI UNCON (test code = 3475720264) 0.7 mg/dL 0.1-1.1 BILI CONJ (test code = 3338702447) 0.0 mg/dL 0.0-0.3 T PROTEIN (test code = 0866469216) 5.8 g/dL 6.3-8.2 L ALBUMIN (test code = 3368600498) 3.2 g/dL 3.5-5.0 L ALK PHOS (test code = 2785718785) 96 U/L 34-122 ALTv (test code = 1742-6) 15 U/L 5-50 AST(SGOT) (test code = 5531871813) 20 U/L 13-40 Lab Interpretation (test code = Abnormal 80796-6) [facility]2021-06-24 11:07:50 Test Item Value Reference Range Interpretation Comments LIPASE (test code = 2398298238) 341 U/L 0-220 H Lab Interpretation (test code = Abnormal 96901-4) [facility]vineETHANOL2021-06-24 03:27:11 Test Item Value Reference Range Interpretation Comments ALCOHOL (test code = <10 mg/dL 8853410852) BERYL (test code = BERYL) <10 [id number] Toxic>100 Depression of [employer]>400 Fatalities Reported [facility]vineURINALYSIS2021-06-23 22:52:56 Test Item Value Reference Range Interpretation Comments APPEARANCE (test code = Clear Clear 8760349128) COLOR (test code = Yellow Yellow 0848689887) PH (test code = 4.8-8.0 5095809285) SP GRAVITY (test code = 1.003-1.030 3161292809) GLU U QUAL (test code = Normal Normal 7502636592) BLOOD (test code = Negative Negative 7556987114) KETONES (test code = Negative Negative 0802364814) PROTEIN (test code = Negative Negative 2887-8) UROBILIN (test code = 2.0 mg/dL Normal A 2912233359) BILIRUBIN (test code = Negative Negative 0195273074) NITRITE (test code = Negative Negative 2657460962) LEUK CAMMIE (test code = Negative Negative 9832280364) RBC/HPF (test code = See_Comment [Autom ated message] 0135880659) The system [employer] generated this result transmit meng reference range : 0 - 3 HPF. The refe rence range was not u sed to interpret th is result as normal/abnormal . WBC/HPF (test code = See_Comment [Autom ated message] 7720578434) The system [employer] generated this result transmit meng reference range : 0 - 5 HPF. The refe rence range was not u sed to interpret th is result as normal/abnormal . BACTERIA (test code = Negative Negative 1689944094) MUCOUS (test code = Slight Negative LPF A 5436241199) HYAL CAST (test code = See_Comment [Aut omated message] 4706225964) The system ic [employer] generated this result transmit meng reference range : <=2 LPF. The refere nce range was not u sed to interpret th is result as normal/abnormal . Lab Interpretation (test Abnormal code = 43142-7) [facility]vineXR CHEST 1 [id number] 22:45:23 No acute intrathoracic abnormality.PROCEDURE: XR CHEST 1 VW CLINICAL INDICATION: sob COMPARISON: 08/27/2020 and priors. FINDINGS: The lungs are clear. Subtle density at the left base is likely atelectasis.No pleural effusion or pneumothorax is seen. The cardiomediastinal silhouette is normal. No acute bony abnormality. [facility], Radiant Results Inft User - 09/21/2020 5:46 PM CDT PROCEDURE: XR CHEST 1 VWCLINICAL INDICATION: sob COMPARISON: 08/27/2020 and priors.FINDINGS:The lungs are clear. Subtle density at the left base is likely atelectasis.No pleural effusion or pneumothorax is seen. The cardiomediastinal silhouette is normal. No acute bony abnormality.IMPRESSIONNo acute intrathoracic abnormality.[facility]vineCB WITH [id number] 22:29:27 Test Item Value Reference Range Interpretation Comments WBC (test code = See_Comment H [Automated 3408-2) message] The system which generated this result transmit meng reference range : 4.20 - 10.70 10*3/?L. The reference range was not used to interpret this result as normal/abnormal . RBC (test code = See_Comment [Automated 999-8) message] The system which generated this result transmit meng reference range : 4.26 - 5.52 10*6/?L. The reference range was not used to interpret this result as normal/abnormal . HGB (test code = 15.5 g/dL 12.2-16.4 718-7) HCT (test code = 46.0 % 38.4-49.3 4544-3) MCV (test code = 104.8 fL 81.7-95.6 H 787-2) MCH (test code = 35.3 pg 26.1-32.7 H 785-6) MCHC (test code = 33.7 g/dL 31.2-35.0 786-4) RDW-SD (test code = 56.3 fL 38.5-51.6 H 62258-4) RDW-CV (test code = 14.4 % 12.1-15.4 788-0) PLT (test code = See_Comment H [Automated 777-3) message] The system which generated this result transmit meng reference range : 150 - 328 10*3/ ?L. The reference range was not u sed to interpret th is result as normal/abnormal . MPV (test code = 10.5 fL 9.8-13.0 43537-7) NRBC/100 WBC (test See_Comment [Automat ed code = 1988503389) message] The system which generated this result transmit meng reference range : 0.0 - 10.0 /100 WBCs. The reference range was not used to interpret this result as normal/abnormal . NRBC x10^3 (test code <0.01 See_Comment [Auto mated = 9662752200) message] The system which generated this result transmit meng reference range : 10*3/?L. The reference range was not used to interpret this result as normal/abnormal . GRAN MAT (NEUT) % 79.1 % (test code = 770-8) IMM GRAN % (test code 1.10 % = 5391923192) LYMPH % (test code = 9.6 % 736-9) MONO % (test code = 8.4 % 5905-5) EOS % (test code = 1.1 % 713-8) BASO % (test code = 0.7 % 706-2) GRAN MAT x10^3(ANC) 13.23 10*3/uL 1.99-6.95 H (test code = 0192854683) IMM GRAN x10^3 (test 0.19 10*3/uL 0.00-0.06 H code = 3727545786) LYMPH x10^3 (test code 1.60 10*3/uL 1.09-3.23 = 731-0) MONO x10^3 (test code 1.40 10*3/uL 0.36-1.02 H = 742-7) EOS x10^3 (test code = 0.19 10*3/uL 0.06-0.53 711-2) BASO x10^3 (test code 0.11 10*3/uL 0.01-0.09 H = 704-7) Lab Interpretation Abnormal (test code = 77380-8) [facility]vineTROPONIN [id number] 22:27:04 Test Item Value Reference Range Interpretation Comments TROPONIN I (test 0.006 ng/mL See_Comment [Automated code = 3160273739) message] The system which generated this result transmitted reference range : <=0.034. The reference range was not used to interpret this result as normal/abnormal . BERYL (test code = Equal or Less than BERYL) 0.034 ng/ml---Normal ?Note: Cardiac troponin begins to rise 3-4 hours after the onset of ischemia. Repeat in 4-6 hours if the sample was drawn within 3-4 hours of the onset of the symptom and found normal. Between 0.035 and 0.120 ng/mL--- Borderline. Questionable myocardial injury or necrosis ? ?Note: Serial measurement may be necessary to confirm or exclude the diagnosis of myocardial injury or necrosis; Clinical correlation (symptoms, EKGs, imaging studies, and others) required; Repeat in 4-6 hours if clinically indicated. ? Equal or Higher than 0.121 ng/mL---Abnormal. Myocardial Injury or Necrosis Likely ? Biotin has been reported to cause a negative bias, interpret results relative to patient's use of biotin. ? Lab Interpretation Normal (test code = 91144-5) [facility]vineN-TERMINAL [id number] 22:22:45 Test Item Value Reference Range Interpretation Comments NT-proBNP (test code 73 pg/mL See_Comment [Autom ated = 5937796803) message] The system which generated this result transmitted reference range : <=125. The reference range was not used to interpret this result as normal/abnormal . BERYL (test code = BERYL) Biotin has been reported to cause a negative bias, interpret results relative to patient's use of biotin. Lab Interpretation Normal (test code = 53246-3) [facility]OVID[facility] (ID NOW RAPID TESTING)2020-09-21 22:16:25 Test Item Value Reference Range Interpretation Comments SARS-CoV-2 Rapid ID NOW Not Detected Not Detected (test code = 97793-7) BERYL (test code = BERYL) ID NOW COVID-19 Assay is an isothermal nucleic acid amplification test intended for the qualitative detection of nucleic acid from SARS-CoV-2 viral RNA in nasopharyngeal ([employer]) specimens. It is used under Emergency Use Authorization (EUA) by FDA. The limit of detection (LOD) of the assay is 125 Genome Equivalents/mL. A positive result is indicative of the presence of SARS-CoV-2 RNA. ?Clinical correlation with patient history and other diagnostic information is necessary to determine patient infection status. A negative (Not Detected) result does not preclude SARS-CoV-2 infection. In patients with clinical symptoms and other tests that are consistent with SARS-CoV-2 infection, negative results should be treated as presumptive negative and a new specimen should be tested with alternative PCR molecular test. Invalid: Please collect a new specimen for repeat patient testing if clinically indicated. Lab Interpretation Normal (test code = 60160-8) [facility]. METABOLIC PANEL (67070)2020-09-21 22:14:03 Test Item Value Reference Range Interpretation Comments NA (test code = 140 mmol/L 135-145 4788469680) K (test code = 3.9 mmol/L 3.5-5.0 4800756897) CL (test code = 104 mmol/L 98-108 3378675784) CO2 TOTAL (test code = 25 mmol/L 23-31 0381970418) AGAP (test code = 2-16 1874271517) BUN (test code = 6 mg/dL 7-23 L 4332034973) GLUCOSE (test code = 105 mg/dL 70-110 6650299453) CREATININE (test code = 0.63 mg/dL 0.60-1.25 1036773799) TOTAL BILI (test code = 1.0 mg/dL 0.1-1.4 3617935296) CALCIUM (test code = 9.9 mg/dL 8.6-10.6 9889054548) T PROTEIN (test code = 7.9 g/dL 6.3-8.2 0495256262) ALBUMIN (test code = 4.4 g/dL 3.5-5.0 8093294182) ALK PHOS (test code = 120 U/L 34-122 6193195518) ALTv (test code = 19 U/L 5-50 2-6) AST(SGOT) (test code = 26 U/L 13-40 5008996400) eGFR (test code = mL/min/1.73m2 9103962796) BERYL (test code = BERYL) Association of Glomerular Filtration Rate (GFR) and Staging of Kidney Disease* + --+ --+ ------+| GFR (mL/min/1.73 m2) ?| With Kidney Damage ?| ?Without Kidney Damage+ --------+ --------+ +| ?>90 ?| ?Stage one ?| ? Normal ?+ ---+ ---+ -------+| ?60-89 ?| ?Stage two ?| ? Decreased GFR ? + --+ --+ ------+| ?30-59 ?| ?Stage three ?| ? Stage three ? + --+ --+ ------+| ?15-29 ?| ?Stage four ? | ? Stage four ?+ ---+ ---+ -------+| ?<15 (or dialysis) ? ?| ?Stage five ? | ? Stage five ?+ ---+ ---+ -------+ *Each stage assumes the associated GFR level has been in effect for at least three months. ?Stages 1 to 5, with or without kidney disease, indicate chronic kidney disease. Notes: Determination of stages one and two (with eGFR >59mL/min/1.73 m2) requires estimation of kidney damage for at least three months as defined by structural or functional abnormalities of the kidney, manifested by either:Pathological abnormalities or Markers of kidney damage (including abnormalities in the composition of the blood or urine or abnormalities in imaging tests). Lab Interpretation Abnormal (test code = 18812-0) [facility]vineMAGNESIUM2021-06-23 22:14:03 Test Item Value Reference Range Interpretation Comments MAGNESIUM (test code = 4610275314) 2.1 mg/dL 1.7-2.4 Lab Interpretation (test code = Normal 12103-1) [facility]2021-06-23 22:13:43 Test Item Value Reference Range Interpretation Comments LIPASE (test code = 3503909090) 550 U/L 0-220 H Lab Interpretation (test code = Abnormal 59230-6) [facility] WITH [id number] 11:07:15 Test Item Value Reference Range Interpretation Comments WBC (test code = See_Comment [Automated 6690-2) message] The sy stem which generated this result transmitted reference range : 4.20 - 10.70 10*3/?L. The reference range was not used to interpret this result as normal/abnormal . RBC (test code = See_Comment [Automated 789-8) message] The sy stem which generated this result transmitted reference range : 4.26 - 5.52 10*6/?L. The reference range was not used to interpret this result as normal/abnormal . HGB (test code = 16.2 g/dL 12.2-16.4 718-7) HCT (test code = 48.4 % 38.4-49.3 4544-3) MCV (test code = 111.3 fL 81.7-95.6 H 787-2) MCH (test code = 37.2 pg 26.1-32.7 H 785-6) MCHC (test code = 33.5 g/dL 31.2-35.0 786-4) RDW-SD (test code = 59.6 fL 38.5-51.6 H 94530-4) RDW-CV (test code = 14.2 % 12.1-15.4 788-0) PLT (test code = See_Comment [Automated 777-3) message] The sy stem which generated this result transmitted reference range : 150 - 328 10*3/ ?L. The reference r kevin was not used to interpret this result as normal/abnormal . MPV (test code = 9.8 fL 9.8-13.0 87645-0) NRBC/100 WBC (test See_Comment [Automat ed code = 0580501228) message] The system which generated this result transmitted reference range : 0.0 - 10.0 /100 WBCs. The refer ence range was not u sed to interpret th is result as normal/abnormal . NRBC x10^3 (test code <0.01 See_Comment [Auto mated = 1592639366) message] The s [employer] which generated this result transmitted reference range : 10*3/?L. The reference range was not used to interpret this result as normal/abnormal . GRAN MAT (NEUT) % 78.9 % (test code = 770-8) IMM GRAN % (test code 2.40 % = 5247305717) LYMPH % (test code = 7.2 % 736-9) MONO % (test code = 8.4 % 5905-5) EOS % (test code = 2.2 % 713-8) BASO % (test code = 0.9 % 706-2) GRAN MAT x10^3(ANC) 7.04 10*3/uL 1.99-6.95 H (test code = 0977972556) IMM GRAN x10^3 (test 0.21 10*3/uL 0.00-0.06 H code = 8771618539) LYMPH x10^3 (test code 0.64 10*3/uL 1.09-3.23 L = 731-0) MONO x10^3 (test code 0.75 10*3/uL 0.36-1.02 = 742-7) EOS x10^3 (test code = 0.20 10*3/uL 0.06-0.53 711-2) BASO x10^3 (test code 0.08 10*3/uL 0.01-0.09 = 704-7) TOXIC CHANGES (test Present A code = 803-7) Lab Interpretation Abnormal (test code = 08646-2) [facility]. METABOLIC PANEL (24195)2020-08-28 10:17:02 Test Item Value Reference Range Interpretation Comments NA (test code = 138 mmol/L 135-145 6347406655) K (test code = 4.4 mmol/L 3.5-5.0 6644599054) CL (test code = 96 mmol/L 98-108 L 1662834948) CO2 TOTAL (test code = 36 mmol/L 23-31 H 9005084699) AGAP (test code = 2-16 0103753378) BUN (test code = 3 mg/dL 7-23 L 4225317945) GLUCOSE (test code = 84 mg/dL 70-110 4596389702) CREATININE (test code = 0.43 mg/dL 0.60-1.25 L 9645815443) TOTAL BILI (test code = 0.8 mg/dL 0.1-1.5 2696490903) CALCIUM (test code = 8.9 mg/dL 8.6-10.6 7578608584) T PROTEIN (test code = 6.2 g/dL 6.3-8.2 L 2718892784) ALBUMIN (test code = 3.5 g/dL 3.5-5.0 9321100068) ALK PHOS (test code = 220 U/L 34-122 H 4690465905) ALTv (test code = 78 U/L 5-50 H 1742-6) AST(SGOT) (test code = 88 U/L 13-40 H 6185546125) eGFR (test code = mL/min/1.73m2 0244090984) BERYL (test code = BERYL) Association of Glomerular Filtration Rate (GFR) and Staging of Kidney Disease* + --+ --+ ------+| GFR (mL/min/1.73 m2) ?| With Kidney Damage ?| ?Without Kidney Damage+ --------+ --------+ +| ?>90 ?| ?Stage one ?| ? Normal ?+ ---+ ---+ -------+| ?60-89 ?| ?Stage two ?| ? Decreased GFR ? + --+ --+ ------+| ?30-59 ?| ?Stage three ?| ? Stage three ? + --+ --+ ------+| ?15-29 ?| ?Stage four ? | ? Stage four ?+ ---+ ---+ -------+| ?<15 (or dialysis) ? ?| ?Stage five ? | ? Stage five ?+ ---+ ---+ -------+ *Each stage assumes the associated GFR level has been in effect for at least three months. ?Stages 1 to 5, with or without kidney disease, indicate chronic kidney disease. Notes: Determination of stages one and two (with eGFR >59mL/min/1.73 m2) requires estimation of kidney damage for at least three months as defined by structural or functional abnormalities of the kidney, manifested by either:Pathological abnormalities or Markers of kidney damage (including abnormalities in the composition of the blood or urine or abnormalities in imaging tests). Lab Interpretation Abnormal (test code = 45110-2) [facility]59[facility]TOTAL CHOLESTEROL, TRIGLYCERIDES, HDL)2020-08-28 10:14:31 Test Item Value Reference Range Interpretation Comments CHOL (test code = 181 mg/dL 120-200 1838614538) HDL (test code = 47 mg/dL >40 1818234700) HDLC RATIO (test code = See_Comment [Au tomated message] 3088102149) The system Lumi[employer] generated this result transmit meng reference range : <=5.0. The refe rence range was not u sed to interpret th is result as normal/abnormal . TRIG (test code = 143 mg/dL 30-170 8306888310) LDL CHOL (test code = 105 mg/dL See_Comment [Auto mated message] 73694-9) The system L[employer] generated this result transmit meng reference range : <=160. The refe rence range was not u sed to interpret th is result as normal/abnormal . VLDL (test code = 29 mg/dL 5-60 8215706529) Lab Interpretation (test Normal code = 00250-4) [facility] B12, [id number] 06:48:17 Test Item Value Reference Range Interpretation Comments VIT B12 (test code = 762 pg/mL 240-930 0908237186) BERYL (test code = BERYL) Biotin has been reported to cause a positive bias, interpret results relative to patient's use of biotin. Lab Interpretation (test Normal code = 03379-7) [facility]ST 1 [id number] 20:52:05 1. No acute cardiopulmonary disease. Indication: SOB Portable ? Comparison: None RL: 4209 ORDERING PHYSICIAN: ?DERIC LYNCH TECHNIQUE: Single view of the chest. FINDINGS: The lungs are clear. Cardiomediastinal silhouette is withinnormal limits. ?No pneumothorax. The bony structures are intact. [facility], Radiant Results Inft User - 13:53 PM CDT Indication: SOB Portable Comparison: NoneRL: 4209ORDERING PHYSICIAN: DERIC SANTOS TECHNIQUE: Single view of the chest.FINDINGS: The lungs are clear. Cardiomediastinal silhouette is withinnormal limits. No pneumothorax. The bony structures are intact.IMPRESSION1. No acute cardiopulmonary disease. [facility] [id number] 17:31:15 Test Item Value Reference Range Interpretation Comments TSH (test code = See_Comment H Biotin has been 9727913539) reported to cau se a negative bias, interpret resul ts relative to pat svetlanant's use of biotin. [Automated mess age] The system [employer] generated this result transmitted ref erence range: 0.45 - 4 .70 mIU/L. The refe rence range was not u sed to interpret this result as normal/abnor mal. Lab Interpretation (test Abnormal code = 57694-0) [facility] (22305)(TOTAL CHOLESTEROL, TRIGLYCERIDES, HDL)2020-08-27 14:56:25 Test Item Value Reference Range Interpretation Comments CHOL (test code = 141 mg/dL 120-200 0223983027) HDL (test code = 34 mg/dL >40 L 2769511709) HDLC RATIO (test code = See_Comment [Au tomated message] 6887593187) The system [employer] generated this result transmit meng reference range : <=5.0. The refe rence range was not u sed to interpret th is result as normal/abnormal . TRIG (test code = 125 mg/dL 30-170 3676241168) LDL CHOL (test code = 82 mg/dL See_Comment [Auto mated message] 87666-0) The system [employer] generated this result transmit meng reference range : <=160. The refe rence range was not u sed to interpret th is result as normal/abnormal . VLDL (test code = 25 mg/dL 5-60 3454001903) Lab Interpretation (test Abnormal code = 78460-1) [facility] METABOLIC PANEL (NA, K, CL, CO2, GLUCOSE, BUN, CREATININE, CA)2020-08-27 14:56:25 Test Item Value Reference Range Interpretation Comments NA (test code = 135 mmol/L 135-145 4239132559) K (test code = 3.3 mmol/L 3.5-5.0 L 0057659500) CL (test code = 99 mmol/L 98-108 5468184736) CO2 TOTAL (test code = 34 mmol/L 23-31 H 2341648889) AGAP (test code = 2-16 7108978117) BUN (test code = 3 mg/dL 7-23 L 5698443732) GLUCOSE (test code = 100 mg/dL 70-110 2238514882) CREATININE (test code = 0.41 mg/dL 0.60-1.25 L 2780380277) CALCIUM (test code = 7.4 mg/dL 8.6-10.6 L 4143784678) eGFR (test code = mL/min/1.73m2 0327071381) BERYL (test code = BERYL) Association of Glomerular Filtration Rate (GFR) and Staging of Kidney Disease* + --+ --+ ------+| GFR (mL/min/1.73 m2) ?| With Kidney Damage ?| ?Without Kidney Damage+ --------+ --------+ +| ?>90 ?| ?Stage one ?| ? Normal ?+ ---+ ---+ -------+| ?60-89 ?| ?Stage two ?| ? Decreased GFR ? + --+ --+ ------+| ?30-59 ?| ?Stage three ?| ? Stage three ? + --+ --+ ------+| ?15-29 ?| ?Stage four ? | ? Stage four ?+ ---+ ---+ -------+| ?<15 (or dialysis) ? ?| ?Stage five ? | ? Stage five ?+ ---+ ---+ -------+ *Each stage assumes the associated GFR level has been in effect for at least three months. ?Stages 1 to 5, with or without kidney disease, indicate chronic kidney disease. Notes: Determination of stages one and two (with eGFR >59mL/min/1.73 m2) requires estimation of kidney damage for at least three months as defined by structural or functional abnormalities of the kidney, manifested by either:Pathological abnormalities or Markers of kidney damage (including abnormalities in the composition of the blood or urine or abnormalities in imaging tests). Lab Interpretation Abnormal (test code = 45942-8) [facility] Metabolic Panel (NA, K, CL, CO2, GLUCOSE, BUN, CREATININE, CA)2020-08-27 10:57:03 Test Item Value Reference Range Interpretation Comments NA (test code = 135 mmol/L 135-145 9460062486) K (test code = 2.9 mmol/L 3.5-5.0 LL 8369038501) CL (test code = 99 mmol/L 98-108 7823557478) CO2 TOTAL (test code = 30 mmol/L 23-31 8505821533) AGAP (test code = 2-16 9462083364) BUN (test code = 3 mg/dL 7-23 L 1368115086) GLUCOSE (test code = 86 mg/dL 70-110 0522554698) CREATININE (test code = 0.37 mg/dL 0.60-1.25 L 3731894438) CALCIUM (test code = 7.4 mg/dL 8.6-10.6 L 6138109394) eGFR (test code = mL/min/1.73m2 9824664047) BERYL (test code = BERYL) Association of Glomerular Filtration Rate (GFR) and Staging of Kidney Disease* + --+ --+ ------+| GFR (mL/min/1.73 m2) ?| With Kidney Damage ?| ?Without Kidney Damage+ --------+ --------+ +| ?>90 ?| ?Stage one ?| ? Normal ?+ ---+ ---+ -------+| ?60-89 ?| ?Stage two ?| ? Decreased GFR ? + --+ --+ ------+| ?30-59 ?| ?Stage three ?| ? Stage three ? + --+ --+ ------+| ?15-29 ?| ?Stage four ? | ? Stage four ?+ ---+ ---+ -------+| ?<15 (or dialysis) ? ?| ?Stage five ? | ? Stage five ?+ ---+ ---+ -------+ *Each stage assumes the associated GFR level has been in effect for at least three months. ?Stages 1 to 5, with or without kidney disease, indicate chronic kidney disease. Notes: Determination of stages one and two (with eGFR >59mL/min/1.73 m2) requires estimation of kidney damage for at least three months as defined by structural or functional abnormalities of the kidney, manifested by either:Pathological abnormalities or Markers of kidney damage (including abnormalities in the composition of the blood or urine or abnormalities in imaging tests). Lab Interpretation Abnormal (test code = 46975-1) [facility]vineMagnesium [id number] 10:52:10 Test Item Value Reference Range Interpretation Comments MAGNESIUM (test code = 8381648257) 1.3 mg/dL 1.7-2.4 L Lab Interpretation (test code = Abnormal 95451-1) [facility]vineCB with [id number] 10:51:50 Test Item Value Reference Range Interpretation Comments WBC (test code = See_Comment [Automated 6690-2) message] The sy stem which generated this result transmitted reference range : 4.20 - 10.70 10*3/?L. The reference range was not used to interpret this result as normal/abnormal . RBC (test code = See_Comment L [Automated 789-8) message] The sy stem which generated this result transmitted reference range : 4.26 - 5.52 10*6/?L. The reference range was not used to interpret this result as normal/abnormal . HGB (test code = 13.6 g/dL 12.2-16.4 718-7) HCT (test code = 40.1 % 38.4-49.3 4544-3) MCV (test code = 110.8 fL 81.7-95.6 H 787-2) MCH (test code = 37.6 pg 26.1-32.7 H 785-6) MCHC (test code = 33.9 g/dL 31.2-35.0 786-4) RDW-SD (test code = 58.8 fL 38.5-51.6 H 53012-1) RDW-CV (test code = 14.3 % 12.1-15.4 788-0) PLT (test code = See_Comment [Automated 777-3) message] The sy stem which generated this result transmitted reference range : 150 - 328 10*3/ ?L. The reference r kevin was not used to interpret this result as normal/abnormal . MPV (test code = 9.8 fL 9.8-13.0 16375-0) NRBC/100 WBC (test See_Comment [Automat ed code = 3932166793) message] The system which generated this result transmitted reference range : 0.0 - 10.0 /100 WBCs. The refer ence range was not u sed to interpret th is result as normal/abnormal . NRBC x10^3 (test code <0.01 See_Comment [Auto mated = 1360970549) message] The s ystem which generated this result transmitted reference range : 10*3/?L. The reference range was not used to interpret this result as normal/abnormal . GRAN MAT (NEUT) % 79.4 % (test code = 770-8) IMM GRAN % (test code 1.40 % = 0903459814) LYMPH % (test code = 6.7 % 736-9) MONO % (test code = 9.2 % 5905-5) EOS % (test code = 2.6 % 713-8) BASO % (test code = 0.7 % 706-2) GRAN MAT x10^3(ANC) 8.24 10*3/uL 1.99-6.95 H (test code = 4726159074) IMM GRAN x10^3 (test 0.15 10*3/uL 0.00-0.06 H code = 2746190972) LYMPH x10^3 (test code 0.69 10*3/uL 1.09-3.23 L = 731-0) MONO x10^3 (test code 0.95 10*3/uL 0.36-1.02 = 742-7) EOS x10^3 (test code = 0.27 10*3/uL 0.06-0.53 711-2) BASO x10^3 (test code 0.07 10*3/uL 0.01-0.09 = 704-7) Lab Interpretation Abnormal (test code = 02969-2) [facility] (43313[facility] (ALB,T.PRO,BILI T,BU/BC,ALT,AST,ALK PHOS)2020-08-27 10:51:35 Test Item Value Reference Range Interpretation Comments TOTAL BILI (test code = 4973400400) 0.7 mg/dL 0.1-1.1 BILI UNCON (test code = 5146068937) 0.6 mg/dL 0.1-1.1 BILI CONJ (test code = 1470765553) 0.0 mg/dL 0.0-0.3 T PROTEIN (test code = 5730938647) 4.8 g/dL 6.3-8.2 L ALBUMIN (test code = 5095142043) 2.5 g/dL 3.5-5.0 L ALK PHOS (test code = 7500355298) 127 U/L 34-122 H ALTv (test code = 1742-6) 35 U/L 5-50 AST(SGOT) (test code = 1420316223) 62 U/L 13-40 H Lab Interpretation (test code = Abnormal 29316-1) [facility]vineLIPASE2021-05-29 10:46:52 Test Item Value Reference Range Interpretation Comments LIPASE (test code = 2021765655) 1232 U/L 0-220 H Lab Interpretation (test code = Abnormal 14130-0) [facility]vine[facility] ABDOMEN [id number] 00:04:38 Impression: 1. Hepatomegaly and findings compatible with hepatic steatosis.2. Cholecystectomy.3. Nonvisualization of the pancreas. RL: 460 End of Report Ordering Physician: ?MICHELLE BRENNAN History: ?Pancreatitis Technique: Abdominal ultr asound Technical quality: Limited due to bowel gas and body habitus. Comparison: None Findings: ? The liver is enlarged, with a craniocaudad dimension of approximately 19cm. Hepatic echoes are diffusely increased and there is relatively poorsound penetration, indicative of diffuse fatty infiltration. Portal venousflow is hepatopetal. No biliary dilatation is evident. The patient isstatus post cholecystectomy. The spleen is at the upper limits of normal insize and otherwise unremarkable. The pancreas is obscured by bowel gas andcontent is not adequately evaluated. Both kidneys are sonographicallynormal, with the right kidney measuring 12.2 cm in length and the leftkidney 12.7 cm. The aorta is not adequately visualized due to bowel gas. [facility], Radiant Results Inft User - 08/26/2020 7:05 PM CDT Ordering Physician: MICHELLE BRENNANHistory: PancreatitisTechnique: Abdominal ultrasoundTechnical quality: Limited due to bowel gas and body habitus.Comparison: NoneFindings: The liver is enlarged, with a craniocaudad dimension of approximately 19cm. Hepatic echoes are diffusely increased and there is relatively poorsound penetration, indicative of diffuse fatty infiltration. Portal venousflow is hepatopetal. No biliary dilatation is evident. The patient isstatus post cholecystectomy. The spleen is at the upper limits of normal insize and otherwise unremarkable. The pancreas is obscured by bowel gas andcontent is not adequately evaluated.Both kidneys are sonographicallynormal, with the right kidney measuring 12.2 cm in length and the leftkidney 12.7 cm. The aorta is not adequately visualized due to bowel gas.IMPRESSIONImpression:1. Hepatomegaly and findings compatible with hepatic steatosis.2. Cholecystectomy.3. Nonvisualization of the pancreas.RL: 460End of Report [facility]2021-[facility]-28 21:52:39 Test Item Value Reference Range Interpretation Comments ALCOHOL (test code = <10 mg/dL 4689480665) BERYL (test code = BERYL) <10 Fokpqepk18-371 Toxic>100 Depression of [employer]REE [employer]MING SUPERVISOR>400 Fatalities Reported [facility]vine[facility]INALYSIS2021-05-28 20:27:55 Test Item Value Reference Range Interpretation Comments APPEARANCE (test code = Clear Clear 8012616124) COLOR (test code = Kamille Yellow A 4058903279) PH (test code = 4.8-8.0 9994889805) SP GRAVITY (test code = 1.003-1.030 3441019228) GLU U QUAL (test code = Normal Normal 3240323034) BLOOD (test code = Negative Negative 8265714074) KETONES (test code = 20 mg/dL Negative A 8773313154) PROTEIN (test code = Negative Negative 2887-8) UROBILIN (test code = 2.0 mg/dL Normal A 2367378523) BILIRUBIN (test code = Negative Negative 9427062698) NITRITE (test code = Negative Negative 7966906146) LEUK CAMMIE (test code = Negative Negative 6763089721) RBC/HPF (test code = See_Comment [Autom ated message] 6003113948) The system [employer] generated this result transmit meng reference range : 0 - 3 HPF. The refe rence range was not u sed to interpret th is result as normal/abnormal . WBC/HPF (test code = See_Comment [Autom ated message] 8311729394) The system [employer] generated this result transmit meng reference range : 0 - 5 HPF. The refe rence range was not u sed to interpret th is result as normal/abnormal . BACTERIA (test code = Negative Negative 8635620291) MUCOUS (test code = Slight Negative LPF A 6142627333) Lab Interpretation (test Abnormal code = 20600-7) [facility]OVID[facility] (ID NOW RAPID TESTING)2020-08-26 18:10:59 Test Item Value Reference Range Interpretation Comments SARS-CoV-2 Rapid ID NOW Not Detected Not Detected (test code = 05229-3) BERYL (test code = BERYL) ID NOW COVID-19 Assay is an isothermal nucleic acid amplification test intended for the qualitative detection of nucleic acid from SARS-CoV-2 viral RNA in nasopharyngeal ([employer]) specimens. It is used under Emergency Use Authorization (EUA) by FDA. The limit of detection (LOD) of the assay is 125 Genome Equivalents/mL. A positive result is indicative of the presence of SARS-CoV-2 RNA. ?Clinical correlation with patient history and other diagnostic information is necessary to determine patient infection status. A negative (Not Detected) result does not preclude SARS-CoV-2 infection. In patients with clinical symptoms and other tests that are consistent with SARS-CoV-2 infection, negative results should be treated as presumptive negative and a new specimen should be tested with alternative PCR molecular test. Invalid: Please collect a new specimen for repeat patient testing if clinically indicated. Lab Interpretation Normal (test code = 00730-6) [facility]vineCT ABDOMEN PELVIS WO [id number] 16:11:01 Since 08/22/2020, worsening of acute (likely interstitial) pancreatitis. Nofluid collection. Chronicfindings including hepatic steatosis, diverticulosis andnonobstructing right nephrolithiasis. CT ABDOMEN PELVIS WO CONTRAST 08/26/2020 10:09 AM HISTORY: Abdominal pain, acute, nonlocalized COMPARISON: CT abdomen pelvis 04/20/2019 TECHNIQUE AND FINDINGS: Contiguous axial imaging of abdomen and pelvis wasperformed without contrast. Coronal and sagittal reconstructions wereobtained. FINDINGS:Statements: Lack of intravenous contrast compromises evaluation of solidorgans and vasculature. LOWER THORAX: The lungs bases are clear. ? HEPATOBILIARY: Normal size liver. ?Decreased attenuation of liverconsistent with hepatic steatosis.No biliary ductal dilatation. Prior cholecystectomy. SPLEEN: No splenomegaly. PANCREAS: Again noted edema of pancreatic head with increasedperipancreatic edema and fat strandingextends to the right anteriorpararenal fascia. And paracolic gutter as well as mesentery consistent withworsening of acute pancreatitis. No fluid collection. The currentexamination is limited for evaluation of necrosis. No fluid collection. Noductal dilation. ADRENAL GLANDS: No adrenal nodules. KIDNEYS: No hydronephrosis. Punctate nonobstructing 0.2 cm stone in lowerpole of the right kidney. Colonic diverticulosis. GI TRACT: No dilation. Secondary thickening of duodenum related topancreatitis. PERITONEUM AND RETROPERITONEUM: No free air or free fluid. LYMPH NODES: No lymphadenopathy. PELVIS/BLADDER: Partially distended urinary bladder with unchangedappearance of wall thickening. VESSELS: Normal julieta iber. BONES AND SOFT TISSUES: No suspicious lytic or sclerotic bone lesions.Subcentimeter fat-containing umbilical hernia. [facility], Radiant Results Inft User - 08/26/2020 11:[address] ABDOMEN PELVIS WO CONTRAST 08/26/2020 10:09 AMHISTORY: Abdom inal pain, acute, nonlocalized COMPARISON: CT abdomen pelvis 04/20/2019TECHNIQUE AND FINDINGS: Contiguous axial imaging of abdomen and pelvis wasperformed without contrast. Coronal and sagittal reconstructions wereobtained.FINDINGS:Statements: Lack of intravenous contrast compromises evaluation of solidorgans and vasculature. LOWER THORAX: The lungs bases are clear. HEPATOBILIARY: Normal size liver.Decreased attenuation of liverconsistent with hepatic steatosis.No biliary ductal dilatation. Prior c holecystectomy.SPLEEN: No splenomegaly.PANCREAS: Again noted edema of pancreatic head with increasedperipancreatic edema and fat stranding extends to the right anteriorpararenal fascia. And paracolic gutter as well as mesentery consistent withworsening of acute pancreatitis. No fluid collection. The currentexamination is limited for evaluation of necrosis. No fluid collection. Noductal dilation.ADRENAL GLANDS: No adrenal nodules.KIDNEYS: No hydronephrosis. Punctate nonobstructing 0.2 cm stone in lowerpole of the right kidney. Colonic diverticulosis.GI TRACT: No dilation. Secondary thickening of duodenum related topancreatitis.PERITONEUM AND RETROPERITONEUM: No free air or free fluid.LYMPH NODES: No lymphadenopathy.PELVIS/BLADDER: Partially distended urinary bladder with unchangedappearance of wall thickening.VESSELS: Normal caliber.BONES AND SOFT TISSUES: No suspicious lytic or sclerotic bone lesions.Subcentimeter fat- containing umbilical hernia.IMPRESSIONSince 08/22/2020, worsening of acute (lik marcelo interstitial) pancreatitis. Nofluid collection.Chronic findings including hepatic steatosis, diverticulosis andnonobstructing right nephrolithiasis. [facility]XR CHEST 2 [id number] 15:49:59 No acute cardiopulmonary process is seen.PROCEDURE: XR CHEST 2 08/26/2020 10:39 AM CLINICAL INDICATION: SOB COMPARISON: Radiograph of 02/11/2020 TECHNIQUE: PA and lateral views of the chest FINDINGS: Mild right by basilar atelectasis. There is no pleural effusion. No pneumothorax. The cardiac size is within normal limits. No aggressive osseous lesion. [facility], Radiant Results Inft User - 08/26/2020 10:51 AM CDT PROCEDURE: XR CHEST 2 VW 08/26/2020 10:39 AMCLINICAL INDICATION: SOB COMPARISON: Radiograph of 02/11/2020TECHNIQUE: PA and lateral views of the chestFINDINGS: Mild right by basilar atelectasis. There is no pleural effusion. No pneumothorax. The cardiac size is within normal limits. No aggressive osseous lesion.IMPRESSIONNo acute cardiopulmonary process is seen.[facility]vineCB WITH [id number] 15:12:22 Test Item Value Reference Range Interpretation Comments WBC (test code = See_Comment H [Automated 4473-2) message] The system which generated this result transmit meng reference range : 4.20 - 10.70 10*3/?L. The reference range was not used to interpret this result as normal/abnormal . RBC (test code = See_Comment [Automated 789-8) message] The system which generated this result transmit meng reference range : 4.26 - 5.52 10*6/?L. The reference range was not used to interpret this result as normal/abnormal . HGB (test code = 18.1 g/dL 12.2-16.4 H 718-7) HCT (test code = 50.8 % 38.4-49.3 H 4544-3) MCV (test code = 106.5 fL 81.7-95.6 H 787-2) MCH (test code = 37.9 pg 26.1-32.7 H 785-6) MCHC (test code = 35.6 g/dL 31.2-35.0 H 786-4) RDW-SD (test code = 56.0 fL 38.5-51.6 H 15220-1) RDW-CV (test code = 14.2 % 12.1-15.4 788-0) PLT (test code = See_Comment [Automated 777-3) message] The system which generated this result transmit meng reference range : 150 - 328 10*3/ ?L. The reference range was not u sed to interpret th is result as normal/abnormal . MPV (test code = 9.2 fL 9.8-13.0 L 09691-4) NRBC/100 WBC (test See_Comment [Automat ed code = 0874941934) message] The system which generated this result transmit meng reference range : 0.0 - 10.0 /100 WBCs. The reference range was not used to interpret this result as normal/abnormal . NRBC x10^3 (test code <0.01 See_Comment [Auto mated = 4014459287) message] The system which generated this result transmit meng reference range : 10*3/?L. The reference range was not used to interpret this result as normal/abnormal . GRAN MAT (NEUT) % 86.1 % (test code = 770-8) IMM GRAN % (test code 1.50 % = 9252577155) LYMPH % (test code = 4.3 % 736-9) MONO % (test code = 7.4 % 5905-5) EOS % (test code = 0.2 % 713-8) BASO % (test code = 0.5 % 706-2) GRAN MAT x10^3(ANC) 16.34 10*3/uL 1.99-6.95 H (test code = 6957968408) IMM GRAN x10^3 (test 0.28 10*3/uL 0.00-0.06 H code = 0923141928) LYMPH x10^3 (test code 0.81 10*3/uL 1.09-3.23 L = 731-0) MONO x10^3 (test code 1.41 10*3/uL 0.36-1.02 H = 742-7) EOS x10^3 (test code = 0.04 10*3/uL 0.06-0.53 L 711-2) BASO x10^3 (test code 0.09 10*3/uL 0.01-0.09 = 704-7) BANDS (test code = Increased A 2061316056) Lab Interpretation Abnormal (test code = 87884-9) [facility]. METABOLIC PANEL (30012)2020-08-26 14:37:36 Test Item Value Reference Range Interpretation Comments NA (test code = 136 mmol/L 135-145 6950740738) K (test code = 3.4 mmol/L 3.5-5.0 L 1155017020) CL (test code = 96 mmol/L 98-108 L 4545707459) CO2 TOTAL (test code = 31 mmol/L 23-31 6633513837) AGAP (test code = 2-16 9327053729) BUN (test code = 6 mg/dL 7-23 L 1437387952) GLUCOSE (test code = 122 mg/dL 70-110 H 1647214381) CREATININE (test code = 0.42 mg/dL 0.60-1.25 L 5245026161) TOTAL BILI (test code = 1.4 mg/dL 0.1-1.1 H 2970916114) CALCIUM (test code = 8.4 mg/dL 8.6-10.6 L 2484930084) T PROTEIN (test code = 6.7 g/dL 6.3-8.2 1531520584) ALBUMIN (test code = 3.8 g/dL 3.5-5.0 7618258233) ALK PHOS (test code = 209 U/L 34-122 H 6595798221) ALTv (test code = 51 U/L 5-50 H 1742-6) AST(SGOT) (test code = 52 U/L 13-40 H 9107986225) eGFR (test code = mL/min/1.73m2 0331508696) BERYL (test code = BERYL) Association of Glomerular Filtration Rate (GFR) and Staging of Kidney Disease* + --+ --+ ------+| GFR (mL/min/1.73 m2) ?| With Kidney Damage ?| ?Without Kidney Damage+ --------+ --------+ +| ?>90 ?| ?Stage one ?| ? Normal ?+ ---+ ---+ -------+| ?60-89 ?| ?Stage two ?| ? Decreased GFR ? + --+ --+ ------+| ?30-59 ?| ?Stage three ?| ? Stage three ? + --+ --+ ------+| ?15-29 ?| ?Stage four ? | ? Stage four ?+ ---+ ---+ -------+| ?<15 (or dialysis) ? ?| ?Stage five ? | ? Stage five ?+ ---+ ---+ -------+ *Each stage assumes the associated GFR level has been in effect for at least three months. ?Stages 1 to 5, with or without kidney disease, indicate chronic kidney disease. Notes: Determination of stages one and two (with eGFR >59mL/min/1.73 m2) requires estimation of kidney damage for at least three months as defined by structural or functional abnormalities of the kidney, manifested by either:Pathological abnormalities or Markers of kidney damage (including abnormalities in the composition of the blood or urine or abnormalities in imaging tests). Lab Interpretation Abnormal (test code = 42892-4) [facility] 14:37:15 Test Item Value Reference Range Interpretation Comments LIPASE (test code = 0497546461) 1964 U/L 0-220 H Lab Interpretation (test code = Abnormal 49787-5) [facility]21-[facility]-25 13:19:17 Test Item Value Reference Range Interpretation Comments LIPASE (test code = 8270239697) 340 U/L 0-220 H Lab Interpretation (test code = Abnormal 25226-6) [facility] (NA, K, CL, CO2, GLUCOSE, BUN, CREATININE, CA)2020-08-23 09:35:02 Test Item Value Reference Range Interpretation Comments NA (test code = 138 mmol/L 135-145 4826478562) K (test code = 3.3 mmol/L 3.5-5.0 L 8680444376) CL (test code = 102 mmol/L 98-108 9300720809) CO2 TOTAL (test code = 31 mmol/L 23-31 1793739470) AGAP (test code = 2-16 7360196353) BUN (test code = 3 mg/dL 7-23 L 3574644666) GLUCOSE (test code = 80 mg/dL 70-110 2557103265) CREATININE (test code = 0.48 mg/dL 0.60-1.25 L 6559457196) CALCIUM (test code = 7.3 mg/dL 8.6-10.6 L 2605174872) eGFR (test code = mL/min/1.73m2 8024931277) BERYL (test code = BERYL) Association of Glomerular Filtration Rate (GFR) and Staging of Kidney Disease* + --+ --+ ------+| GFR (mL/min/1.73 m2) ?| With Kidney Damage ?| ?Without Kidney Damage+ --------+ --------+ +| ?>90 ?| ?Stage one ?| ? Normal ?+ ---+ ---+ -------+| ?60-89 ?| ?Stage two ?| ? Decreased GFR ? + --+ --+ ------+| ?30-59 ?| ?Stage three ?| ? Stage three ? + --+ --+ ------+| ?15-29 ?| ?Stage four ? | ? Stage four ?+ ---+ ---+ -------+| ?<15 (or dialysis) ? ?| ?Stage five ? | ? Stage five ?+ ---+ ---+ -------+ *Each stage assumes the associated GFR level has been in effect for at least three months. ?Stages 1 to 5, with or without kidney disease, indicate chronic kidney disease. Notes: Determination of stages one and two (with eGFR >59mL/min/1.73 m2) requires estimation of kidney damage for at least three months as defined by structural or functional abnormalities of the kidney, manifested by either:Pathological abnormalities or Markers of kidney damage (including abnormalities in the composition of the blood or urine or abnormalities in imaging tests). Lab Interpretation Abnormal (test code = 50259-8) [facility]vineMagn[facility] [id number] 09:35:02 Test Item Value Reference Range Interpretation Comments MAGNESIUM (test code = 6102769892) 1.9 mg/dL 1.7-2.4 Lab Interpretation (test code = Normal 60189-1) [facility]vineCB with [id number] 09:15:32 Test Item Value Reference Range Interpretation Comments WBC (test code = See_Comment H [Automated 6690-2) message] The sy stem which generated this result transmitted reference range : 4.20 - 10.70 10*3/?L. The reference range was not used to interpret this result as normal/abnormal . RBC (test code = See_Comment [Automated 789-8) message] The sy stem which generated this result transmitted reference range : 4.26 - 5.52 10*6/?L. The reference range was not used to interpret this result as normal/abnormal . HGB (test code = 16.7 g/dL 12.2-16.4 H 718-7) HCT (test code = 48.0 % 38.4-49.3 4544-3) MCV (test code = 109.6 fL 81.7-95.6 H 787-2) MCH (test code = 38.1 pg 26.1-32.7 H 785-6) MCHC (test code = 34.8 g/dL 31.2-35.0 786-4) RDW-SD (test code = 59.1 fL 38.5-51.6 H 86221-9) RDW-CV (test code = 14.6 % 12.1-15.4 788-0) PLT (test code = See_Comment [Automated 777-3) message] The sy stem which generated this result transmitted reference range : 150 - 328 10*3/ ?L. The reference r kevin was not used to interpret this result as normal/abnormal . MPV (test code = 9.7 fL 9.8-13.0 L 11781-0) NRBC/100 WBC (test See_Comment [Automat ed code = 6561286611) message] The system which generated this result transmitted reference range : 0.0 - 10.0 /100 WBCs. The refer ence range was not u sed to interpret th is result as normal/abnormal . NRBC x10^3 (test code <0.01 See_Comment [Auto mated = 1643602997) message] The s ystem which generated this result transmitted reference range : 10*3/?L. The reference range was not used to interpret this result as normal/abnormal . GRAN MAT (NEUT) % 81.0 % (test code = 770-8) IMM GRAN % (test code 1.90 % = 2440167433) LYMPH % (test code = 6.7 % 736-9) MONO % (test code = 7.3 % 5905-5) EOS % (test code = 2.2 % 713-8) BASO % (test code = 0.9 % 706-2) GRAN MAT x10^3(ANC) 9.19 10*3/uL 1.99-6.95 H (test code = 6510701928) IMM GRAN x10^3 (test 0.22 10*3/uL 0.00-0.06 H code = 9845039446) LYMPH x10^3 (test code 0.76 10*3/uL 1.09-3.23 L = 731-0) MONO x10^3 (test code 0.83 10*3/uL 0.36-1.02 = 742-7) EOS x10^3 (test code = 0.25 10*3/uL 0.06-0.53 711-2) BASO x10^3 (test code 0.10 10*3/uL 0.01-0.09 H = 704-7) Lab Interpretation Abnormal (test code = 27839-0) [facility]OVID[facility] (ID NOW RAPID TESTING)2020-08-22 17:29:09 Test Item Value Reference Range Interpretation Comments SARS-CoV-2 Rapid ID NOW Not Detected Not Detected (test code = 19531-9) BERYL (test code = BERYL) ID NOW COVID-19 Assay is an isothermal nucleic acid amplification test intended for the qualitative detection of nucleic acid from SARS-CoV-2 viral RNA in nasopharyngeal ([employer]) specimens. It is used under Emergency Use Authorization (EUA) by FDA. The limit of detection (LOD) of the assay is 125 Genome Equivalents/mL. A positive result is indicative of the presence of SARS-CoV-2 RNA. ?Clinical correlation with patient history and other diagnostic information is necessary to determine patient infection status. A negative (Not Detected) result does not preclude SARS-CoV-2 infection. In patients with clinical symptoms and other tests that are consistent with SARS-CoV-2 infection, negative results should be treated as presumptive negative and a new specimen should be tested with alternative PCR molecular test. Invalid: Please collect a new specimen for repeat patient testing if clinically indicated. Lab Interpretation Normal (test code = 52594-8) [facility]vineETHANOL2021-05-24 17:11:23 Test Item Value Reference Range Interpretation Comments ALCOHOL (test code = <10 mg/dL 1463440146) BERYL (test code = BERYL) <10 Wlisfwmi37-263 Toxic>100 Depression of [employer]>400 Fatalities Reported [facility]vineMAGNESIUM2021-05-24 17:10:53 Test Item Value Reference Range Interpretation Comments MAGNESIUM (test code = 1.5 mg/dL 1.7-2.4 L Sligh t hemolysis 3509898465) Lab Interpretation (test Abnormal code = 48793-8) [facility]vinePHOSPHORUS2021-05-24 17:10:53 Test Item Value Reference Range Interpretation Comments PHOSPHORUS (test code = 3.0 mg/dL 2.5-5.0 Slig ht hemolysis 2841352303) Lab Interpretation (test Normal code = 88780-8) [facility]vineTRIGLYCERIDES2021-05-24 17:08:40 Test Item Value Reference Range Interpretation Comments TRIG (test code = 5639317465) 132 mg/dL 30-170 Lab Interpretation (test code = Normal 75862-3) [facility]vineCT ABDOMEN PELVIS WO [id number] 16:34:25 Peripancreatic head edema and peripancreatic inflammation slightlyincreased compared to prior exam suggestive of recurrent acutepancreatitis. Hepatic steatosis. Circumferential wall thickening of urinary bladder could be sequela ofnondistended lumen. Correlate with urinalysis to rule out cystitis. CTABDOMEN PELVIS WO CONTRAST 08/22/2020 10:45 AM HISTORY: Abdominal pain, fever Stone suspected COMPARISON: CT abdomen pelvis 04/20/2020 TECHNIQUE AND FINDINGS: Contiguous axial imaging of abdomen and pelvis wasperformed without contrast. Coronal and sagittal reconstructions wereobtained. FINDINGS:Statements: Lack of intravenous contrast compromises evaluation of solidorgans and vasculature. LOWER THORAX: The lungs bases are clear. ? HEPATOBILIARY: Normal size liver. Decreased attenuation consistent withhepatic steatosis.No biliary ductal dilatation. Prior cholecystectomy. SPLEEN: Top normal size at 13.2 cm.. PANCREAS: There is fullness in the region of pancreatic head and pancreaticoh duodenal groove which is increased compared to prior examination howeverperipancreatic head stranding anteriorly and inferiorly is similar to priorexam. No ductal dilation. No fluid collection. ADRENAL GLANDS: No adrenal nodules. KIDNEYS: No hydronephrosis. 0.2 cm nonobstructing stone in the right lowerpole calyx. GI TRACT: Wall thickening of duodenum likely related to pancreaticinflammation. No wall thickening. Colonic diverticulosis. PERITONEUM AND RETROPERITONEUM: No free air or free fluid. LYMPH NODES: No lymph adenopathy. PELVIS/BLADDER: Circumferential wall thickening of urinary bladder partlyrelated to nondistended lumen. The prostate is unremarkable. VESSELS: Normal caliber. Moderate aortoiliac calcified plaque. BONES AND SOFT TISSUES: No suspicious lytic or sclerotic bone lesions.Small fat-containing ofmedical hernia [facility], Radiant Results Inft User - 08/22/2020 11:35 AM CDTCT ABDOMEN PELVIS WO CONTRAST 08/22/2020 10:45 AMHISTORY: Abdominal pain, fever Stone suspectedCOMPARISON: CT abdomen pelvis 04/20/2020TECHNIQUE AND FINDINGS: Contiguous axial imaging of abdomen and pelvis wasperformed without contrast. Coronal and sagittal reconstructions wereobtained.FINDINGS:Statements: Lack of intravenous contrast compromises evaluation of solidorgans and vasculature. LOWER THORAX: The lungs bases are clear. HEPATOBILIARY: Normal size liver. Decreased attenuation consistent withhepatic steatosis.No biliary ductal dilatation. Prior cholecystectomy.SPLEEN: Top normal size at 13.2 cm..PANCREAS: There is fullness in the region of pancreatic head and pancreaticoh duodenal groove which is increased compared to prior examination howeverperipancreatic head stranding anteriorly and inferiorly is similar to priorexam. No ductal dilation. No fluid collection.ADRENAL GLANDS: No adrenal nodules.KIDNEYS: No hydronephrosis. 0.2 cm nonobstructing stone in the right lowerpole calyx.GI TRACT: Wall thickening of duodenum likely related to pancreaticinflammation. No wall thickening. Colonic diverticulosis.PERITONEUM AND RETROPERITONEUM: No free air or free fluid.LYMPH NODES: No lymphadenopathy.PELVIS/BLADDER: Circumferent ial wall thickening of urinary bladder partlyrelated to nondistended lumen. The prostate is unremarkable.VESSELS: Normal caliber. Moderate aortoiliac calcified plaque.BONES AND SOFT TISSUES: No suspicious lytic or sclerotic bone lesions.Small fat-containing of medical herniaIMPRESSIONPeripancreatic head edema and peripancreatic inflammation slightlyincreased compared to prior exam suggestive of recurrent acutepancreatitis.Hepatic steatosis.Circumferential wall thickening of urinary bladder could be sequela ofnondistended lumen. Correlate with urinalysis to rule out cystitis.[facility]vineComplete Metabolic [id number] 15:30:47 Test Item Value Reference Range Interpretation Comments NA (test code = 134 mmol/L 135-145 L 9922024031) K (test code = 2.9 mmol/L 3.5-5.0 LL 1731229606) CL (test code = 94 mmol/L 98-108 L 4477108798) CO2 TOTAL (test code = 31 mmol/L 23-31 8767665302) AGAP (test code = 2-16 2328266858) BUN (test code = 4 mg/dL 7-23 L 4656079432) GLUCOSE (test code = 101 mg/dL 70-110 0873616380) CREATININE (test code = 0.44 mg/dL 0.60-1.25 L 4652950870) TOTAL BILI (test code = 1.4 mg/dL 0.1-1.1 H 6480542351) CALCIUM (test code = 8.4 mg/dL 8.6-10.6 L 9414125436) T PROTEIN (test code = 6.6 g/dL 6.3-8.2 0558672410) ALBUMIN (test code = 3.7 g/dL 3.5-5.0 8038498842) ALK PHOS (test code = 165 U/L 34-122 H 6951406937) ALTv (test code = 31 U/L 5-50 1742-6) AST(SGOT) (test code = 60 U/L 13-40 H 1324573223) eGFR (test code = mL/min/1.73m2 9814506928) BERYL (test code = BERYL) Association of Glomerular Filtration Rate (GFR) and Staging of Kidney Disease* + --+ --+ ------+| GFR (mL/min/1.73 m2) ?| With Kidney Damage ?| ?Without Kidney Damage+ --------+ --------+ +| ?>90 ?| ?Stage one ?| ? Normal ?+ ---+ ---+ -------+| ?60-89 ?| ?Stage two ?| ? Decreased GFR ? + --+ --+ ------+| ?30-59 ?| ?Stage three ?| ? Stage three ? + --+ --+ ------+| ?15-29 ?| ?Stage four ? | ? Stage four ?+ ---+ ---+ -------+| ?<15 (or dialysis) ? ?| ?Stage five ? | ? Stage five ?+ ---+ ---+ -------+ *Each stage assumes the associated GFR level has been in effect for at least three months. ?Stages 1 to 5, with or without kidney disease, indicate chronic kidney disease. Notes: Determination of stages one and two (with eGFR >59mL/min/1.73 m2) requires estimation of kidney damage for at least three months as defined by structural or functional abnormalities of the kidney, manifested by either:Pathological abnormalities or Markers of kidney damage (including abnormalities in the composition of the blood or urine or abnormalities in imaging tests). Lab Interpretation Abnormal (test code = 90893-8) [facility] GrapevineLactic Acid Whole [id number] 15:30:12 Test Item Value Reference Range Interpretation Comments LACTIC ACID (test code = 1.45 mmol/L 0.50-2.20 1206523813) Lab Interpretation (test code = Normal 68339-5) [facility]vineLipase, [id number] 15:29:46 Test Item Value Reference Range Interpretation Comments LIPASE (test code = 0403061518) 633 U/L 0-220 H Lab Interpretation (test code = Abnormal 65213-7) [facility] with Pplljohfoxgf7007-34-52 15:16:16 Test Item Value Reference Range Interpretation Comments WBC (test code = See_Comment H [Automated 6690-2) message] The system which generated this result transmit meng reference range : 4.20 - 10.70 10*3/?L. The reference range was not used to interpret this result as normal/abnormal . RBC (test code = See_Comment [Automated 789-8) message] The system which generated this result transmit meng reference range : 4.26 - 5.52 10*6/?L. The reference range was not used to interpret this result as normal/abnormal . HGB (test code = 18.0 g/dL 12.2-16.4 H 718-7) HCT (test code = 49.6 % 38.4-49.3 H 4544-3) MCV (test code = 104.6 fL 81.7-95.6 H 787-2) MCH (test code = 38.0 pg 26.1-32.7 H 785-6) MCHC (test code = 36.3 g/dL 31.2-35.0 H 786-4) RDW-SD (test code = 56.8 fL 38.5-51.6 H 37000-8) RDW-CV (test code = 14.6 % 12.1-15.4 788-0) PLT (test code = See_Comment [Automated 777-3) message] The system which generated this result transmit meng reference range : 150 - 328 10*3/ ?L. The reference range was not u sed to interpret th is result as normal/abnormal . MPV (test code = 9.8 fL 9.8-13.0 81467-9) NRBC/100 WBC (test See_Comment [Automat ed code = 7792321223) message] The system which generated this result transmit meng reference range : 0.0 - 10.0 /100 WBCs. The reference range was not used to interpret this result as normal/abnormal . NRBC x10^3 (test code <0.01 See_Comment [Auto mated = 9687421015) message] The system which generated this result transmit meng reference range : 10*3/?L. The reference range was not used to interpret this result as normal/abnormal . GRAN MAT (NEUT) % 84.3 % (test code = 770-8) IMM GRAN % (test code 1.40 % = 9242149336) LYMPH % (test code = 5.5 % 736-9) MONO % (test code = 6.6 % 5905-5) EOS % (test code = 1.5 % 713-8) BASO % (test code = 0.7 % 706-2) GRAN MAT x10^3(ANC) 12.55 10*3/uL 1.99-6.95 H (test code = 9415933681) IMM GRAN x10^3 (test 0.21 10*3/uL 0.00-0.06 H code = 2708266316) LYMPH x10^3 (test code 0.82 10*3/uL 1.09-3.23 L = 731-0) MONO x10^3 (test code 0.98 10*3/uL 0.36-1.02 = 742-7) EOS x10^3 (test code = 0.22 10*3/uL 0.06-0.53 711-2) BASO x10^3 (test code 0.10 10*3/uL 0.01-0.09 H = 704-7) Lab Interpretation Abnormal (test code = 66735-0) [facility]vineCT ABD[facility]EN PELVIS WO [id number] 01:26:10 Mild fat stranding about the head/uncinate process of the pancreas and atthe pancreaticoduodenal groove, concerning for changes of acutepancreatitis. Duodenitis felt to be less likely. Recommend clinicalcorrelation and correlation with amylase/lipase. Hepatic steatosis. Punctate nonobstructing rightinferior pole renal calculus. Nohydronephrosis. Colonic diverticulosis without evidence for acute diverticulitis. Findings discussed with Dr. Lazo at 7:25 PM on 04/20/2020. RL: [id number] EXAMINATION:CT ABDOMEN PELVIS WO CONTRAST ORDERING PHYSICIAN: TATI LAZO CLINICAL INDICATIONS: ?Abd pain, acute, generalized ; COMPARISON: No direct comparison available. TECHNIQUE: Axial CT of the abdomen and pelvis obtained without intravenouscontrast. Sagittal and coronal reformatted images provided. The examinationwas performed according to ALARAprinciples. FINDINGS: Minimal left basilar subsegmental atelectasis. No pleuraleffusion. Evaluation of the visceral abdominal organs is limited without intravenouscontrast material. Liver is diffusely low in attenuation, consistent withhepatic steatosis. The gallbladder surgically absent. The spleen, bothadrenal glands are unremarkable in noncontrast appearance. There is mildfat stranding about the head/uncinate process of the pancreas and thepancreaticoduodenal groove, suspicious for changes of acute pancreatitis.Duodenitis also be less likely. No hydronephrosis. Punctate nonobstructingright inferior pole renal calculus.. Urinary bladder is unremarkable.Stomach is unremarkable. Small bowel is normal caliber. The appendix is notvisualized, but there are no secondary signs of acute appendicitis inthepericecal region. There is descending and sigmoid colonic diverticulosiswithout evidence for acute diverticulitis. Moderate atheroscleroticcalcification of the abdominal aorta. No abdominal or pelvic adenopathy. Nofree air free fluid. No acute bony abnormality. [facility], Radiant Results Inft User - 04/20/2020 7:27 PM CSTEXAMINATION:CT ABDOMEN PELVIS WO CONTRASTORDERING PHYSICIAN: TATI Ruiz MEDINACLINICAL INDICATIONS: Abd pain, acute, generalized ;COMPARISON: No direct comparison available.TECHNIQUE: Axial CT of the abdomen and pelvis obtained without intravenouscontrast. Sagittal and coronal reformatted images provided. The examinationwas performed according to ALARA principles.FINDINGS: Minimal left basilar subsegmental atelectasis. No pleuraleffusion.Evaluation of the visceral abdominal organs is limited without intravenouscontrast material. Liver is diffusely low in attenuation, consistent withhepatic steatosis. The gallbladder surgically absent. The spleen, bothadrenal glands are unremarkable in noncontrast appearance. There is mildfat stranding about the head/uncinate process of the pancreas and thepancreaticoduodenal groove, suspicious for changes of acute pancreatitis.Duodenitis also beless likely. No hydronephrosis. Punctate nonobstructingright inferior pole renal calculus.. Urinary bladder is unremarkable.Stomach is unremarkable. Small bowel is normal caliber. The appendix is notvisualized, but there are no secondary signs of acute appendicitis in thepericecal region. There is descending and sigmoid colonic diverticulosiswithout evidence for acute diverticulitis. Moderate atherosc leroticcalcification of the abdominal aorta. No abdominal or pelvic adenopathy. Nofree air free fluid. No acute bony abnormality.IMPRESSIONMild fat stranding about the head/uncinate process of the pancreas and atthe pancreaticoduodenal groove, concerning for changes of acutepancreatitis. Duodenitis felt to be less likely. Recommend clinicalcorrelation and correlation with amylase/lipase.Hepatic steatosis.Punctate nonobstructing right inferior pole renal calculus. Nohydronephrosis.Colonic diverticulosis without evidence for acute diverticulitis. Findings discussed with Dr. Lazo at 7:25 PM on 021.RL: 4600 [facility]vineTHYROID STIMULATING [id number] 01:23:00 Test Item Value Reference Range Interpretation Comments TSH (test code = See_Comment L [Automated message] [id number]) The system [employer] generated this result transmitted ref erence range: 0.45 - 4 .70 mIU/L. The refe rence range was not u sed to interpret this result as normal/abnor mal. Lab Interpretation (test Abnormal code = 52772-9) [facility] [facility]00 Test Item Value Reference Range Interpretation Comments APPEARANCE (test code = Hazy Clear A 5611514565) COLOR (test code = Kamille Yellow A 9436657391) PH (test code = 4.8-8.0 0405613800) SP GRAVITY (test code = 1.003-1.030 7652384771) GLU U QUAL (test code = Normal Normal 3287621680) BLOOD (test code = Negative Negative 4551616280) KETONES (test code = Negative Negative 2586297464) PROTEIN (test code = 30 mg/dL Negative A 2887-8) UROBILIN (test code = 4.0 mg/dL Normal A 0652426577) BILIRUBIN (test code = Negative Negative 0032508363) NITRITE (test code = Negative Negative 3212290026) LEUK CAMMIE (test code = Negative Negative 0442076084) RBC/HPF (test code = <1 See_Comment [Autom ated message] 8143776535) The system [employer] generated this result transmit meng reference range : 0 - 3 HPF. The refe rence range was not u sed to interpret th is result as normal/abnormal . WBC/HPF (test code = See_Comment H [Autom ated message] 5731885117) The system [employer] generated this result transmit meng reference range : 0 - 5 HPF. The refe rence range was not u sed to interpret th is result as normal/abnormal . BACTERIA (test code = Negative Negative 6849720688) MUCOUS (test code = Marked Negative LPF A 7908125744) SQ EPITH (test code = <1 HPF 4712597239) HYAL CAST (test code = See_Comment [Aut omated message] 2231264429) The system [employer] generated this result transmit meng reference range : <=2 LPF. The refere nce range was not u sed to interpret th is result as normal/abnormal . Lab Interpretation (test Abnormal code = 81248-1) [facility]. METABOLIC PANEL ([id number])2020-04-21 00:36:00 Test Item Value Reference Range Interpretation Comments NA (test code = 137 mmol/L 135-145 2394202569) K (test code = 3.4 mmol/L 3.5-5 L 1422026746) CL (test code = 98 mmol/L 98-108 5733402989) CO2 TOTAL (test code = 31 mmol/L 23-31 6660511313) AGAP (test code = 2-16 0271731027) BUN (test code = 5 mg/dL 7-23 L 6351725007) GLUCOSE (test code = 104 mg/dL 70-110 0645895548) CREATININE (test code = 0.61 mg/dL 0.6-1.25 5261896274) TOTAL BILI (test code = 1.5 mg/dL 0.1-1.1 H 6047114495) CALCIUM (test code = 8.4 mg/dL 8.6-10.6 L 1746787063) T PROTEIN (test code = 7.0 g/dL 6.3-8.2 2737334924) ALBUMIN (test code = 4.0 g/dL 3.5-5 6994413293) ALK PHOS (test code = 199 U/L 34-122 H 7835509479) ALTv (test code = 34 U/L 5-50 1742-6) AST(SGOT) (test code = 35 U/L 13-40 1364558305) eGFR Calculation mL/min/1.73m2 (Non-) (test code = 6187815256) eGFR Calculation mL/min/1.73m2 () (test code = 0564280159) BERYL (test code = BERYL) Association of Glomerular Filtration Rate (GFR) and Staging of Kidney Disease* + --+ --+ ------+| GFR (mL/min/1.73 m2) ?| With Kidney Damage ?| ?Without Kidney Damage+ --------+ --------+ +| ?>90 ?| ?Stage one ?| ? Normal ?+ ---+ ---+ -------+| ?60-89 ?| ?Stage two ?| ? Decreased GFR ? + --+ --+ ------+| ?30-59 ?| ?Stage three ?| ? Stage three ? + --+ --+ ------+| ?15-29 ?| ?Stage four ? | ? Stage four ?+ ---+ ---+ -------+| ?<15 (or dialysis) ? ?| ?Stage five ? | ? Stage five ?+ ---+ ---+ -------+ *Each stage assumes the associated GFR level has been in effect for at least three months. ?Stages 1 to 5, with or without kidney disease, indicate chronic kidney disease. Notes: Determination of stages one and two (with eGFR >59mL/min/1.73 m2) requires estimation of kidney damage for at least three months as defined by structural or functional abnormalities of the kidney, manifested by either:Pathological abnormalities or Markers of kidney damage (including abnormalities in the composition of the blood or urine or abnormalities in imaging tests). Lab Interpretation Abnormal (test code = 05247-9) [facility] Test Item Value Reference Range Interpretation Comments LIPASE (test code = 2235242813) 225 U/L 0-220 H Lab Interpretation (test code = Abnormal 77049-3) [facility] WITH [id number] 23:23:00 Test Item Value Reference Range Interpretation Comments WBC (test code = See_Comment [Automated 6690-2) message] The sy stem which generated this result transmitted reference range : 4.20 - 10.70 10*3/?L. The reference range was not used to interpret this result as normal/abnormal . RBC (test code = See_Comment H [Automated 789-8) message] The sy stem which generated this result transmitted reference range : 4.26 - 5.52 10*6/?L. The reference range was not used to interpret this result as normal/abnormal . HGB (test code = 18.0 g/dL 12.2-16.4 H 718-7) HCT (test code = 55.1 % 38.4-49.3 H 4544-3) MCV (test code = 92.0 fL 81.7-95.6 787-2) MCH (test code = 30.1 pg 26.1-32.7 785-6) MCHC (test code = 32.7 g/dL 31.2-35 786-4) RDW-SD (test code = 63.9 fL 38.5-51.6 H 40773-5) RDW-CV (test code = 20.1 % 12.1-15.4 H 788-0) PLT (test code = See_Comment [Automated 777-3) message] The sy stem which generated this result transmitted reference range : 150 - 328 10*3/ ?L. The reference r kevin was not used to interpret this result as normal/abnormal . MPV (test code = 8.9 fL 9.8-13 L 27331-4) NRBC/100 WBC (test See_Comment [Automat ed code = 1372398234) message] The system which generated this result transmitted reference range : 0.0 - 10.0 /100 WBCs. The refer ence range was not u sed to interpret th is result as normal/abnormal . NRBC x10^3 (test code <0.01 See_Comment [Auto mated = 3634580496) message] The s ystem which generated this result transmitted reference range : 10*3/?L. The reference range was not used to interpret this result as normal/abnormal . GRAN MAT (NEUT) % 81.3 % (test code = 770-8) IMM GRAN % (test code 0.90 % = 0219960727) LYMPH % (test code = 6.9 % 736-9) MONO % (test code = 9.8 % 5905-5) EOS % (test code = 0.4 % 713-8) BASO % (test code = 0.7 % 706-2) GRAN MAT x10^3(ANC) 8.13 10*3/uL 1.99-6.95 H (test code = 5943708324) IMM GRAN x10^3 (test 0.09 10*3/uL 0-0.06 H code = 9275600080) LYMPH x10^3 (test code 0.69 10*3/uL 1.09-3.23 L = 731-0) MONO x10^3 (test code 0.98 10*3/uL 0.36-1.02 = 742-7) EOS x10^3 (test code = 0.04 10*3/uL 0.06-0.53 L 711-2) BASO x10^3 (test code 0.07 10*3/uL 0.01-0.09 = 704-7) Lab Interpretation Abnormal (test code = 54062-4) [facility]OL[facility] (04235)2020-02-16 11:26:00 Test Item Value Reference Range Interpretation Comments NA (test code = 137 mmol/L 135-145 3513829080) K (test code = 4.6 mmol/L 3.5-5 5184946654) CL (test code = 103 mmol/L 98-108 9894885632) CO2 TOTAL (test code = 25 mmol/L 23-31 7239073195) AGAP (test code = 2-16 7217546584) BUN (test code = 8 mg/dL 7-23 0439246632) GLUCOSE (test code = 135 mg/dL 70-110 H 2382279582) CREATININE (test code = 0.61 mg/dL 0.6-1.25 2802676879) TOTAL BILI (test code = 0.5 mg/dL 0.1-1.0 8639450381) CALCIUM (test code = 9.5 mg/dL 8.6-10.6 0355094526) T PROTEIN (test code = 5.9 g/dL 6.3-8.2 L 9360422015) ALBUMIN (test code = 3.6 g/dL 3.5-5 2316205621) ALK PHOS (test code = 71 U/L 34-122 4161948729) ALTv (test code = 26 U/L 5-50 1742-6) AST(SGOT) (test code = 34 U/L 13-40 9813524173) eGFR Calculation mL/min/1.73m2 (Non-) (test code = 5982668455) eGFR Calculation mL/min/1.73m2 () (test code = 3354286916) BERYL (test code = BERYL) Association of Glomerular Filtration Rate (GFR) and Staging of Kidney Disease* + --+ --+ ------+| GFR (mL/min/1.73 m2) ?| With Kidney Damage ?| ?Without Kidney Damage+ --------+ --------+ +| ?>90 ?| ?Stage one ?| ? Normal ?+ ---+ ---+ -------+| ?60-89 ?| ?Stage two ?| ? Decreased GFR ? + --+ --+ ------+| ?30-59 ?| ?Stage three ?| ? Stage three ? + --+ --+ ------+| ?15-29 ?| ?Stage four ? | ? Stage four ?+ ---+ ---+ -------+| ?<15 (or dialysis) ? ?| ?Stage five ? | ? Stage five ?+ ---+ ---+ -------+ *Each stage assumes the associated GFR level has been in effect for at least three months. ?Stages 1 to 5, with or without kidney disease, indicate chronic kidney disease. Notes: Determination of stages one and two (with eGFR >59mL/min/1.73 m2) requires estimation of kidney damage for at least three months as defined by structural or functional abnormalities of the kidney, manifested by either:Pathological abnormalities or Markers of kidney damage (including abnormalities in the composition of the blood or urine or abnormalities in imaging tests). Lab Interpretation Abnormal (test code = 72384-0) [facility] WITH [id number] 09:44:00 Test Item Value Reference Range Interpretation Comments WBC (test code = See_Comment [Automated 7390-2) message] The sy stem which generated this result transmitted reference range : 4.20 - 10.70 10*3/?L. The reference range was not used to interpret this result as normal/abnormal . RBC (test code = See_Comment L [Automated 789-8) message] The sy stem which generated this result transmitted reference range : 4.26 - 5.52 10*6/?L. The reference range was not used to interpret this result as normal/abnormal . HGB (test code = 12.6 g/dL 12.2-16.4 718-7) HCT (test code = 39.2 % 38.4-49.3 4544-3) MCV (test code = 104.0 fL 81.7-95.6 H 787-2) MCH (test code = 33.4 pg 26.1-32.7 H 785-6) MCHC (test code = 32.1 g/dL 31.2-35 786-4) RDW-SD (test code = 61.1 fL 38.5-51.6 H 88401-2) RDW-CV (test code = 15.8 % 12.1-15.4 H 788-0) PLT (test code = See_Comment [Automated 777-3) message] The sy stem which generated this result transmitted reference range : 150 - 328 10*3/ ?L. The reference r kevin was not used to interpret this result as normal/abnormal . MPV (test code = 11.4 fL 9.8-13 05789-0) NRBC/100 WBC (test See_Comment [Automat ed code = 4141368857) message] The system which generated this result transmitted reference range : 0.0 - 10.0 /100 WBCs. The refer ence range was not u sed to interpret th is result as normal/abnormal . NRBC x10^3 (test code <0.01 See_Comment [Auto mated = 5594977949) message] The s ystem which generated this result transmitted reference range : 10*3/?L. The reference range was not used to interpret this result as normal/abnormal . GRAN MAT (NEUT) % 92.1 % (test code = 770-8) IMM GRAN % (test code 0.60 % = 6253530250) LYMPH % (test code = 3.7 % 736-9) MONO % (test code = 3.4 % 5905-5) EOS % (test code = 0.0 % 713-8) BASO % (test code = 0.2 % 706-2) GRAN MAT x10^3(ANC) 9.61 10*3/uL 1.99-6.95 H (test code = 1217216966) IMM GRAN x10^3 (test 0.06 10*3/uL 0-0.06 code = 4315740275) LYMPH x10^3 (test code 0.39 10*3/uL 1.09-3.23 L = 731-0) MONO x10^3 (test code 0.35 10*3/uL 0.36-1.02 L = 742-7) EOS x10^3 (test code = <0.03 0.06-0.53 L 711-2) BASO x10^3 (test code <0.03 0.01-0.09 = 704-7) Lab Interpretation Abnormal (test code = 60414-0) [facility]FL [facility] (NON-REPORTABLE)2020-02-15 20:57:08 These images do not require a Radiology diagnostic report.[facility] METABOLIC PANEL (NA, K, CL, CO2, GLUCOSE, BUN, CREATININE, CA)2020-02-13 15:11:00 Test Item Value Reference Range Interpretation Comments NA (test code = 137 mmol/L 135-145 2841943378) K (test code = 3.7 mmol/L 3.5-5 5010714173) CL (test code = 104 mmol/L 98-108 1959945236) CO2 TOTAL (test code = 26 mmol/L 23-31 5886675491) AGAP (test code = 2-16 0595620861) BUN (test code = 5 mg/dL 7-23 L 2882320548) GLUCOSE (test code = 119 mg/dL 70-110 H 6081206747) CREATININE (test code = 0.66 mg/dL 0.6-1.25 0230849560) CALCIUM (test code = 9.4 mg/dL 8.6-10.6 8705097221) eGFR Calculation mL/min/1.73m2 (Non-) (test code = 2508082534) eGFR Calculation mL/min/1.73m2 () (test code = 2998582201) BERYL (test code = BERYL) Association of Glomerular Filtration Rate (GFR) and Staging of Kidney Disease* + --+ --+ ------+| GFR (mL/min/1.73 m2) ?| With Kidney Damage ?| ?Without Kidney Damage+ --------+ --------+ +| ?>90 ?| ?Stage one ?| ? Normal ?+ ---+ ---+ -------+| ?60-89 ?| ?Stage two ?| ? Decreased GFR ? + --+ --+ ------+| ?30-59 ?| ?Stage three ?| ? Stage three ? + --+ --+ ------+| ?15-29 ?| ?Stage four ? | ? Stage four ?+ ---+ ---+ -------+| ?<15 (or dialysis) ? ?| ?Stage five ? | ? Stage five ?+ ---+ ---+ -------+ *Each stage assumes the associated GFR level has been in effect for at least three months. ?Stages 1 to 5, with or without kidney disease, indicate chronic kidney disease. Notes: Determination of stages one and two (with eGFR >59mL/min/1.73 m2) requires estimation of kidney damage for at least three months as defined by structural or functional abnormalities of the kidney, manifested by either:Pathological abnormalities or Markers of kidney damage (including abnormalities in the composition of the blood or urine or abnormalities in imaging tests). Lab Interpretation Abnormal (test code = 85160-7) [facility]AT[facility] (09932) (ALB,T.PRO,BILI T,BU/BC,ALT,AST,ALK PHOS)2020-02-13 15:11:00 Test Item Value Reference Range Interpretation Comments TOTAL BILI (test code = 3191828344) 0.5 mg/dL 0.1-1.1 BILI UNCON (test code = 4554737157) 0.5 mg/dL 0.1-1.1 BILI CONJ (test code = 6934050877) 0.0 mg/dL 0-0.3 T PROTEIN (test code = 1579887622) 6.4 g/dL 6.3-8.2 ALBUMIN (test code = 0800870564) 3.7 g/dL 3.5-5 ALK PHOS (test code = 1407623389) 77 U/L 34-122 ALTv (test code = 1742-6) 24 U/L 5-50 AST(SGOT) (test code = 6885166255) 22 U/L 13-40 Lab Interpretation (test code = Normal 15488-8) [facility]vineGAMMA [id number] 15:11:00 Test Item Value Reference Range Interpretation Comments GGT (test code = 8846114687) 37 U/L 13-58 Lab Interpretation (test code = Normal 96231-9) [facility]rapevinePROTHROMBIN TIME / [id number] 14:40:00 Test Item Value Reference Range Interpretation Comments PROTIME PATIENT (test See_Comment [Auto mated message] code = 5964-2) The system [employer] generated this result transmitted ref erence range: 12.0 - 1 4.7 Seconds. The re ference range was not u sed to interpret this result as normal/abnor mal. INR (test code = 6301-6) Nor mal INR <1.1; Warfarin Therap eutic range 2.0 to 3. 0 or 2.5 to 3.5, dep ending upon the indica tions. Lab Interpretation (test Normal code = 02082-3) [facility]vineCBC WITHOUT [id number] 14:30:00 Test Item Value Reference Range Interpretation Comments WBC (test code = 6690-2) See_Comment [A utomated message] The system [employer] generated this result transmit meng reference range : 4.20 - 10.70 10*3/?L. The reference range was not used to interpret this result as normal/abnormal . RBC (test code = 789-8) See_Comment L [Au tomated message] The system [employer] generated this result transmit meng reference range : 4.26 - 5.52 10* 6/?L. The reference r kevin was not used to interpret this result as normal/abnormal . HGB (test code = 718-7) 13.6 g/dL 12.2-16.4 HCT (test code = 4544-3) 41.0 % 38.4-49.3 MCH (test code = 785-6) 34.1 pg 26.1-32.7 H MCV (test code = 787-2) 102.8 fL 81.7-95.6 H MCHC (test code = 786-4) 33.2 g/dL 31.2-35 PLT (test code = 777-3) See_Comment [Au tomated message] The system [employer] generated this result transmit meng reference range : 150 - 328 10*3/?L. The reference range was not used to interpret this result as normal/abnormal . MPV (test code = 10.5 fL 9.8-13 29227-0) RDW-CV (test code = 16.3 % 12.1-15.4 H 788-0) RDW-SD (test code = 62.4 fL 38.5-51.6 H 81425-6) NRBC x10^3 (test code = <0.01 See_Comment [Au tomated message] 6461444592) The system [employer] generated this result transmit meng reference range : 10*3/?L. The reference range was not used to interpret this result as normal/abnormal . NRBC/100 WBC (test code See_Comment [Au tomated message] = 0794616078) The system [employer] generated this result transmit meng reference range : 0.0 - 10.0 /100 WBC s. The reference r kevin was not used to interpret this result as normal/abnormal . IPF % (test code = 2256381238) Lab Interpretation (test Abnormal code = 11309-5) [facility]vineTHROAT [id number] 14:27:00 Test Item Value Reference Range Interpretation Comments Throat Culture (test No Beta-Hemolytic code = 626-2) Streptococcus isolated [facility]vineCOMP. METABOLIC PANEL (08280)2020-02-12 12:58:00 Test Item Value Reference Range Interpretation Comments NA (test code = 137 mmol/L 135-145 2670521917) K (test code = 3.8 mmol/L 3.5-5 1005112651) CL (test code = 101 mmol/L 98-108 6072763431) CO2 TOTAL (test code = 28 mmol/L 23-31 5161475313) AGAP (test code = 2-16 5654918105) BUN (test code = 8 mg/dL 7-23 1462078938) GLUCOSE (test code = 96 mg/dL 70-110 2755230864) CREATININE (test code 0.70 mg/dL 0.6-1.25 = 2902806909) TOTAL BILI (test code 0.6 mg/dL 0.1-1.1 = 1528306639) CALCIUM (test code = 9.8 mg/dL 8.6-10.6 5622775667) T PROTEIN (test code = 7.0 g/dL 6.3-8.2 3042222578) ALBUMIN (test code = 4.1 g/dL 3.5-5 5243403759) ALK PHOS (test code = 85 U/L 34-122 9367012324) ALTv (test code = 30 U/L 5-50 2-6) AST(SGOT) (test code = 29 U/L 13-40 8151250870) eGFR Calculation mL/min/1.73m2 (Non-) (test code = 2386368883) eGFR Calculation mL/min/1.73m2 () (test code = 5866920251) BERYL (test code = BERYL) Association of Glomerular Filtration Rate (GFR) and Staging of Kidney Disease* + -+ + ---+| GFR (mL/min/1.73 m2) ?| With Kidney Damage ?| ?Without Kidney Damage+ -------+ ------+ ---------+| ?>90 ?| ?Stage one ?| ? Normal ?+ --+ -+ ----+| ?60-89 ?| ?Stage two ?| ? Decreased GFR ? + -+ + ---+| ?30-59 ?| ?Stage three ?| ? Stage three ? + -+ + ---+| ?15-29 ?| ?Stage four ? | ? Stage four ?+ --+ -+ ----+| ?<15 (or dialysis) ? ?| ?Stage five ? | ? Stage five ?+ --+ -+ ----+ *Each stage assumes the associated GFR level has been in effect for at least three months. ?Stages 1 to 5, with or without kidney disease, indicate chronic kidney disease. Notes: Determination of stages one and two (with eGFR >59mL/min/1.73 m2) requires estimation of kidney damage for at least three months as defined by structural or functional abnormalities of the kidney, manifested by either:Pathological abnormalities or Markers of kidney damage (including abnormalities in the composition of the blood or urine or abnormalities in imaging tests). [facility]vine[facility]2020-11-13 12:58:00 Test Item Value Reference Range Interpretation Comments LIPASE (test code = 9687513427) 111 U/L 0-220 Lab Interpretation (test code = Normal 10867-5) [facility]vineXR CHEST 1 [id number] 01:56:35 No acute cardiopulmonary process.EXAM: XR CHEST 1 VW COMPARISON: 09/13/2018 HISTORY: Wheezing FINDINGS: Lines/Tubes: None. Right upper extremity PICC line has been removed in theinterval. Lungs/pleura: ?The lungs are clear. No pleural effusion or pneumothorax isidentified. Heart/Mediastinum: The cardiac silhouette is normal in size. Trachea isnear midline. [facility], Radiant Results Inft User - 02/11/2020 7:57 PM CSTEXAM: XR CHEST 1 VWCOMPARISON: 09/13/2018HISTORY: Wheezing FINDINGS:Lines/Tubes: None. Right upper extremity PICC line has been removed in theinterval.Lungs/pleura: The lungs are clear. No pleural effusion or pneumothorax isidentified.Heart/Mediastinum: The cardiac silhouette is normal in size. Trachea isnear midline.IMPRESSIONNo acute cardiopulmonary process. [facility]vineGLYCOSYLATED HEMOGLOBIN (A1C)2020-02-11 21:15:00 Test Item Value Reference Range Interpretation Comments HGB A1C (test code = 4.5 % 4-6 4548-4) BERYL (test code = BERYL) %A1C (NGSP) Interpretation (ADA)4.8-5.6 ? ? Normal or (Non-Diabetic Range)5.7-6.4 ? ? Increased Risk (Pre-Diabetic)>6.5 ?Diabetes Indicated Lab Interpretation Normal (test code = 60731-5) [facility]vineBAS[facility] METABOLIC PANEL (NA, K, CL, CO2, GLUCOSE, BUN, CREATININE, CA)2020-02-11 13:04:00 Test Item Value Reference Range Interpretation Comments NA (test code = 139 mmol/L 135-145 6791979773) K (test code = 4.2 mmol/L 3.5-5 9429993439) CL (test code = 103 mmol/L 98-108 0403881794) CO2 TOTAL (test code = 30 mmol/L 23-31 6620866373) AGAP (test code = 2-16 6524734151) BUN (test code = 5 mg/dL 7-23 L 8528299153) GLUCOSE (test code = 92 mg/dL 70-110 8492112398) CREATININE (test code = 0.64 mg/dL 0.6-1.25 5612478668) CALCIUM (test code = 9.5 mg/dL 8.6-10.6 2848025232) eGFR Calculation mL/min/1.73m2 (Non-) (test code = 1722960968) eGFR Calculation mL/min/1.73m2 () (test code = 0243280557) BERYL (test code = BERYL) Association of Glomerular Filtration Rate (GFR) and Staging of Kidney Disease* + --+ --+ ------+| GFR (mL/min/1.73 m2) ?| With Kidney Damage ?| ?Without Kidney Damage+ --------+ --------+ +| ?>90 ?| ?Stage one ?| ? Normal ?+ ---+ ---+ -------+| ?60-89 ?| ?Stage two ?| ? Decreased GFR ? + --+ --+ ------+| ?30-59 ?| ?Stage three ?| ? Stage three ? + --+ --+ ------+| ?15-29 ?| ?Stage four ? | ? Stage four ?+ ---+ ---+ -------+| ?<15 (or dialysis) ? ?| ?Stage five ? | ? Stage five ?+ ---+ ---+ -------+ *Each stage assumes the associated GFR level has been in effect for at least three months. ?Stages 1 to 5, with or without kidney disease, indicate chronic kidney disease. Notes: Determination of stages one and two (with eGFR >59mL/min/1.73 m2) requires estimation of kidney damage for at least three months as defined by structural or functional abnormalities of the kidney, manifested by either:Pathological abnormalities or Markers of kidney damage (including abnormalities in the composition of the blood or urine or abnormalities in imaging tests). Lab Interpretation Abnormal (test code = 81213-3) [facility]vineL[facility]2020-11-12 13:03:00 Test Item Value Reference Range Interpretation Comments LIPASE (test code = 6110747085) 100 U/L 0-220 Lab Interpretation (test code = Normal 87453-6) [facility]vineCBC WITH [id number] 12:40:00 Test Item Value Reference Range Interpretation Comments WBC (test code = See_Comment [Automated 6690-2) message] The sy stem which generated this result transmitted reference range : 4.20 - 10.70 10*3/?L. The reference range was not used to interpret this result as normal/abnormal . RBC (test code = See_Comment [Automated 789-8) message] The sy stem which generated this result transmitted reference range : 4.26 - 5.52 10*6/?L. The reference range was not used to interpret this result as normal/abnormal . HGB (test code = 14.8 g/dL 12.2-16.4 718-7) HCT (test code = 46.6 % 38.4-49.3 4544-3) MCV (test code = 105.0 fL 81.7-95.6 H 787-2) MCH (test code = 33.3 pg 26.1-32.7 H 785-6) MCHC (test code = 31.8 g/dL 31.2-35 786-4) RDW-SD (test code = 62.8 fL 38.5-51.6 H 24629-8) RDW-CV (test code = 16.0 % 12.1-15.4 H 788-0) PLT (test code = See_Comment [Automated 777-3) message] The sy stem which generated this result transmitted reference range : 150 - 328 10*3/ ?L. The reference r kevin was not used to interpret this result as normal/abnormal . MPV (test code = 10.2 fL 9.8-13 49082-5) NRBC/100 WBC (test See_Comment [Automat ed code = 3774630034) message] The system which generated this result transmitted reference range : 0.0 - 10.0 /100 WBCs. The refer ence range was not u sed to interpret th is result as normal/abnormal . NRBC x10^3 (test code <0.01 See_Comment [Auto mated = 8668857822) message] The s ystem which generated this result transmitted reference range : 10*3/?L. The reference range was not used to interpret this result as normal/abnormal . GRAN MAT (NEUT) % 66.2 % (test code = 770-8) IMM GRAN % (test code 1.80 % = 0444000029) LYMPH % (test code = 16.4 % 736-9) MONO % (test code = 10.3 % 5905-5) EOS % (test code = 4.0 % 713-8) BASO % (test code = 1.3 % 706-2) GRAN MAT x10^3(ANC) 4.48 10*3/uL 1.99-6.95 (test code = 5678809838) IMM GRAN x10^3 (test 0.12 10*3/uL 0-0.06 H code = 7388161888) LYMPH x10^3 (test code 1.11 10*3/uL 1.09-3.23 = 731-0) MONO x10^3 (test code 0.70 10*3/uL 0.36-1.02 = 742-7) EOS x10^3 (test code = 0.27 10*3/uL 0.06-0.53 711-2) BASO x10^3 (test code 0.09 10*3/uL 0.01-0.09 = 704-7) Lab Interpretation Abnormal (test code = 95332-0) [facility] GrapevineRAPID STREP SCREEN FOR GROUP [id number] 21:07:00 Test Item Value Reference Range Interpretation Comments Streptococcus pyogenes (group A) Negative Negative antigen (test code = 05915-9) Lab Interpretation (test code = Normal 31963-6) [facility], [id number] 17:15:00 Test Item Value Reference Range Interpretation Comments VIT B12 (test code = 327 pg/mL 240-930 1836112948) BERYL (test code = BERYL) Biotin has been reported to cause a positive bias, interpret results relative to patient's use of biotin. Lab Interpretation (test Normal code = 98698-5) [facility] (NA, K, CL, CO2, GLUCOSE, BUN, CREATININE, CA)2020-02-10 09:19:00 Test Item Value Reference Range Interpretation Comments NA (test code = 137 mmol/L 135-145 1002399361) K (test code = 4.1 mmol/L 3.5-5 1635377346) CL (test code = 104 mmol/L 98-108 2777967591) CO2 TOTAL (test code = 29 mmol/L 23-31 8130269519) AGAP (test code = 2-16 5051987361) BUN (test code = 10 mg/dL 7-23 3080117927) GLUCOSE (test code = 94 mg/dL 70-110 0038698448) CREATININE (test code = 0.59 mg/dL 0.6-1.25 L 5875096825) CALCIUM (test code = 9.0 mg/dL 8.6-10.6 3533899229) eGFR Calculation mL/min/1.73m2 (Non-) (test code = 2594727044) eGFR Calculation mL/min/1.73m2 () (test code = 3015496875) BERYL (test code = BERYL) Association of Glomerular Filtration Rate (GFR) and Staging of Kidney Disease* + --+ --+ ------+| GFR (mL/min/1.73 m2) ?| With Kidney Damage ?| ?Without Kidney Damage+ --------+ --------+ +| ?>90 ?| ?Stage one ?| ? Normal ?+ ---+ ---+ -------+| ?60-89 ?| ?Stage two ?| ? Decreased GFR ? + --+ --+ ------+| ?30-59 ?| ?Stage three ?| ? Stage three ? + --+ --+ ------+| ?15-29 ?| ?Stage four ? | ? Stage four ?+ ---+ ---+ -------+| ?<15 (or dialysis) ? ?| ?Stage five ? | ? Stage five ?+ ---+ ---+ -------+ *Each stage assumes the associated GFR level has been in effect for at least three months. ?Stages 1 to 5, with or without kidney disease, indicate chronic kidney disease. Notes: Determination of stages one and two (with eGFR >59mL/min/1.73 m2) requires estimation of kidney damage for at least three months as defined by structural or functional abnormalities of the kidney, manifested by either:Pathological abnormalities or Markers of kidney damage (including abnormalities in the composition of the blood or urine or abnormalities in imaging tests). Lab Interpretation Abnormal (test code = 63583-7) [facility]103[facility] (ALB,T.PRO,BILI T,BU/BC,ALT,AST,ALK PHOS)2020-02-10 09:19:00 Test Item Value Reference Range Interpretation Comments TOTAL BILI (test code = 3745112646) 0.5 mg/dL 0.1-1.1 BILI UNCON (test code = 3059453091) 0.3 mg/dL 0.1-1.1 BILI CONJ (test code = 9009332060) 0.0 mg/dL 0-0.3 T PROTEIN (test code = 9541266651) 6.3 g/dL 6.3-8.2 ALBUMIN (test code = 8752231028) 3.6 g/dL 3.5-5 ALK PHOS (test code = 5208059744) 71 U/L 34-122 ALTv (test code = 1742-6) 25 U/L 5-50 AST(SGOT) (test code = 4107494889) 26 U/L 13-40 Lab Interpretation (test code = Normal 93804-9) [facility]2020-[facility]-11 09:19:00 Test Item Value Reference Range Interpretation Comments LIPASE (test code = 1900226834) 120 U/L 0-220 Lab Interpretation (test code = Normal 93693-9) [facility] with [id number] 08:44:00 Test Item Value Reference Range Interpretation Comments WBC (test code = See_Comment [Automated 1690-2) message] The sy stem which generated this result transmitted reference range : 4.20 - 10.70 10*3/?L. The reference range was not used to interpret this result as normal/abnormal . RBC (test code = See_Comment L [Automated 789-8) message] The sy stem which generated this result transmitted reference range : 4.26 - 5.52 10*6/?L. The reference range was not used to interpret this result as normal/abnormal . HGB (test code = 13.2 g/dL 12.2-16.4 718-7) HCT (test code = 42.0 % 38.4-49.3 4544-3) MCV (test code = 105.3 fL 81.7-95.6 H 787-2) MCH (test code = 33.1 pg 26.1-32.7 H 785-6) MCHC (test code = 31.4 g/dL 31.2-35 786-4) RDW-SD (test code = 62.8 fL 38.5-51.6 H 14033-8) RDW-CV (test code = 16.0 % 12.1-15.4 H 788-0) PLT (test code = See_Comment [Automated 777-3) message] The sy stem which generated this result transmitted reference range : 150 - 328 10*3/ ?L. The reference r kevin was not used to interpret this result as normal/abnormal . MPV (test code = 10.2 fL 9.8-13 80598-5) NRBC/100 WBC (test See_Comment [Automat ed code = 4985692631) message] The system which generated this result transmitted reference range : 0.0 - 10.0 /100 WBCs. The refer ence range was not u sed to interpret th is result as normal/abnormal . NRBC x10^3 (test code <0.01 See_Comment [Auto mated = 2490500801) message] The s ystem which generated this result transmitted reference range : 10*3/?L. The reference range was not used to interpret this result as normal/abnormal . GRAN MAT (NEUT) % 69.7 % (test code = 770-8) IMM GRAN % (test code 1.80 % = 4325923404) LYMPH % (test code = 14.6 % 736-9) MONO % (test code = 8.9 % 5905-5) EOS % (test code = 3.8 % 713-8) BASO % (test code = 1.2 % 706-2) GRAN MAT x10^3(ANC) 5.38 10*3/uL 1.99-6.95 (test code = 4217628798) IMM GRAN x10^3 (test 0.14 10*3/uL 0-0.06 H code = 9525007178) LYMPH x10^3 (test code 1.13 10*3/uL 1.09-3.23 = 731-0) MONO x10^3 (test code 0.69 10*3/uL 0.36-1.02 = 742-7) EOS x10^3 (test code = 0.29 10*3/uL 0.06-0.53 711-2) BASO x10^3 (test code 0.09 10*3/uL 0.01-0.09 = 704-7) Lab Interpretation Abnormal (test code = 33022-6) [facility] (ID NOW RAPID TESTING)2020-02-10 00:47:00 Test Item Value Reference Range Interpretation Comments SARS-CoV-2 Rapid ID NOW Not Detected Not Detected (test code = 98478-2) BERYL (test code = BERYL) ID NOW COVID-19 Assay is an isothermal nucleic acid amplification test intended for the qualitative detection of nucleic acid from SARS-CoV-2 viral RNA in nasopharyngeal ([employer]) specimens. It is used under Emergency Use Authorization (EUA) by FDA. The limit of detection (LOD) of the assay is 125 Genome Equivalents/mL. A positive result is indicative of the presence of SARS-CoV-2 RNA. ?Clinical correlation with patient history and other diagnostic information is necessary to determine patient infection status. A negative (Not Detected) result does not preclude SARS-CoV-2 infection. In patients with clinical symptoms and other tests that are consistent with SARS-CoV-2 infection, negative results should be treated as presumptive negative and a new specimen should be tested with alternative PCR molecular test. Invalid: Please collect a new specimen for repeat patient testing if clinically indicated. Lab Interpretation Normal (test code = 95159-2) [facility] [id number] 23:45:00 Test Item Value Reference Range Interpretation Comments TROPONIN I (test 0.019 ng/mL See_Comment [Automated code = 5509908479) message] The system which generated this result transmitted reference range : <=0.034. The reference range was not used to interpret this result as normal/abnormal . BERYL (test code = Equal or Less than BERYL) 0.034 ng/ml---Normal ?Note: Cardiac troponin begins to rise 3-4 hours after the onset of ischemia. Repeat in 4-6 hours if the sample was drawn within 3-4 hours of the onset of the symptom and found normal. Between 0.035 and 0.120 ng/mL--- Borderline. Questionable myocardial injury or necrosis ? ?Note: Serial measurement may be necessary to confirm or exclude the diagnosis of myocardial injury or necrosis; Clinical correlation (symptoms, EKGs, imaging studies, and others) required; Repeat in 4-6 hours if clinically indicated. ? Equal or Higher than 0.121 ng/mL---Abnormal. Myocardial Injury or Necrosis Likely ? Biotin has been reported to cause a negative bias, interpret results relative to patient's use of biotin. ? Lab Interpretation Normal (test code = 73679-3) [facility]. METABOLIC PANEL (58652)2020-02-09 23:34:00 Test Item Value Reference Range Interpretation Comments NA (test code = 139 mmol/L 135-145 1539342129) K (test code = 4.5 mmol/L 3.5-5 5203490736) CL (test code = 105 mmol/L 98-108 7830432782) CO2 TOTAL (test code = 27 mmol/L 23-31 4691593984) AGAP (test code = 2-16 1233895850) BUN (test code = 13 mg/dL 7-23 5640950081) GLUCOSE (test code = 82 mg/dL 70-110 6382208856) CREATININE (test code = 0.58 mg/dL 0.6-1.25 L 0769016104) TOTAL BILI (test code = 0.6 mg/dL 0.1-1.9 8713200371) CALCIUM (test code = 9.4 mg/dL 8.6-10.6 3761893885) T PROTEIN (test code = 7.4 g/dL 6.3-8.2 6150550601) ALBUMIN (test code = 4.3 g/dL 3.5-5 8028213858) ALK PHOS (test code = 90 U/L 34-122 2777310479) ALTv (test code = 30 U/L 5-50 1742-6) AST(SGOT) (test code = 27 U/L 13-40 5676913409) eGFR Calculation mL/min/1.73m2 (Non-) (test code = 8227748499) eGFR Calculation mL/min/1.73m2 () (test code = 0121290639) BERYL (test code = BERYL) Association of Glomerular Filtration Rate (GFR) and Staging of Kidney Disease* + --+ --+ ------+| GFR (mL/min/1.73 m2) ?| With Kidney Damage ?| ?Without Kidney Damage+ --------+ --------+ +| ?>90 ?| ?Stage one ?| ? Normal ?+ ---+ ---+ -------+| ?60-89 ?| ?Stage two ?| ? Decreased GFR ? + --+ --+ ------+| ?30-59 ?| ?Stage three ?| ? Stage three ? + --+ --+ ------+| ?15-29 ?| ?Stage four ? | ? Stage four ?+ ---+ ---+ -------+| ?<15 (or dialysis) ? ?| ?Stage five ? | ? Stage five ?+ ---+ ---+ -------+ *Each stage assumes the associated GFR level has been in effect for at least three months. ?Stages 1 to 5, with or without kidney disease, indicate chronic kidney disease. Notes: Determination of stages one and two (with eGFR >59mL/min/1.73 m2) requires estimation of kidney damage for at least three months as defined by structural or functional abnormalities of the kidney, manifested by either:Pathological abnormalities or Markers of kidney damage (including abnormalities in the composition of the blood or urine or abnormalities in imaging tests). Lab Interpretation Abnormal (test code = 53771-3) [facility]2020-11-10 23:33:00 Test Item Value Reference Range Interpretation Comments LIPASE (test code = 0876946444) 366 U/L 0-220 H Lab Interpretation (test code = Abnormal 70535-9) [facility]2020-11-10 23:30:00 Test Item Value Reference Range Interpretation Comments APPEARANCE (test code = Clear Clear 1746714337) COLOR (test code = Yellow Yellow 1514187280) PH (test code = 4.8-8.0 7888009132) SP GRAVITY (test code = 1.003-1.030 8052227001) GLU U QUAL (test code = Normal Normal 0033452733) BLOOD (test code = Negative Negative 1386313746) KETONES (test code = Negative Negative 8317025464) PROTEIN (test code = Negative Negative 2887-8) UROBILIN (test code = Normal Normal 8046940511) BILIRUBIN (test code = Negative Negative 5305715309) NITRITE (test code = Negative Negative 8480021200) LEUK CAMMIE (test code = Negative Negative 9283971538) RBC/HPF (test code = <1 See_Comment [Autom ated message] 6201090272) The system [employer] generated this result transmitted ref erence range: 0 - 3 HP F. The reference range was not used to int erpret this result as normal/abnormal . WBC/HPF (test code = See_Comment [Autom ated message] 8092395042) The system [employer] generated this result transmitted ref erence range: 0 - 5 HP F. The reference range was not used to int erpret this result as normal/abnormal . BACTERIA (test code = Negative Negative 5786675703) MUCOUS (test code = Slight Negative LPF A 7768647624) Lab Interpretation (test Abnormal code = 13747-6) [facility] WITH [id number] 23:19:00 Test Item Value Reference Range Interpretation Comments WBC (test code = See_Comment [Automated 6190-2) message] The sy stem which generated this result transmitted reference range : 4.20 - 10.70 10*3/?L. The reference range was not used to interpret this result as normal/abnormal . RBC (test code = See_Comment [Automated 169-8) message] The sy stem which generated this result transmitted reference range : 4.26 - 5.52 10*6/?L. The reference range was not used to interpret this result as normal/abnormal . HGB (test code = 14.4 g/dL 12.2-16.4 718-7) HCT (test code = 44.4 % 38.4-49.3 4544-3) MCV (test code = 104.0 fL 81.7-95.6 H 787-2) MCH (test code = 33.7 pg 26.1-32.7 H 785-6) MCHC (test code = 32.4 g/dL 31.2-35 786-4) RDW-SD (test code = 62.4 fL 38.5-51.6 H 40348-8) RDW-CV (test code = 16.1 % 12.1-15.4 H 788-0) PLT (test code = See_Comment [Automated 777-3) message] The sy stem which generated this result transmitted reference range : 150 - 328 10*3/ ?L. The reference r kevin was not used to interpret this result as normal/abnormal . MPV (test code = 10.4 fL 9.8-13 78675-6) NRBC/100 WBC (test See_Comment [Automat ed code = 1943554864) message] The system which generated this result transmitted reference range : 0.0 - 10.0 /100 WBCs. The refer ence range was not u sed to interpret th is result as normal/abnormal . NRBC x10^3 (test code <0.01 See_Comment [Auto mated = 4901397081) message] The s ystem which generated this result transmitted reference range : 10*3/?L. The reference range was not used to interpret this result as normal/abnormal . GRAN MAT (NEUT) % 76.8 % (test code = 770-8) IMM GRAN % (test code 1.90 % = 5562558447) LYMPH % (test code = 10.5 % 736-9) MONO % (test code = 7.5 % 5905-5) EOS % (test code = 2.5 % 713-8) BASO % (test code = 0.8 % 706-2) GRAN MAT x10^3(ANC) 7.42 10*3/uL 1.99-6.95 H (test code = 7157534847) IMM GRAN x10^3 (test 0.18 10*3/uL 0-0.06 H code = 1802044578) LYMPH x10^3 (test code 1.02 10*3/uL 1.09-3.23 L = 731-0) MONO x10^3 (test code 0.73 10*3/uL 0.36-1.02 = 742-7) EOS x10^3 (test code = 0.24 10*3/uL 0.06-0.53 711-2) BASO x10^3 (test code 0.08 10*3/uL 0.01-0.09 = 704-7) Lab Interpretation Abnormal (test code = 41428-8) [facility] (NA, K, CL, CO2, GLUCOSE, BUN, CREATININE, CA)2020-02-02 10:32:00 Test Item Value Reference Range Interpretation Comments NA (test code = 143 mmol/L 135-145 0112072920) K (test code = 4.6 mmol/L 3.5-5 8323201762) CL (test code = 105 mmol/L 98-108 6869648302) CO2 TOTAL (test code = 28 mmol/L 23-31 4206201049) AGAP (test code = 2-16 2964382721) BUN (test code = 10 mg/dL 7-23 3701235563) GLUCOSE (test code = 113 mg/dL 70-110 H 7287357043) CREATININE (test code = 0.53 mg/dL 0.6-1.25 L 5280579168) CALCIUM (test code = 9.2 mg/dL 8.6-10.6 7646021232) eGFR Calculation mL/min/1.73m2 (Non-) (test code = 0266649013) eGFR Calculation mL/min/1.73m2 () (test code = 8941781163) BERYL (test code = BERYL) Association of Glomerular Filtration Rate (GFR) and Staging of Kidney Disease* + --+ --+ ------+| GFR (mL/min/1.73 m2) ?| With Kidney Damage ?| ?Without Kidney Damage+ --------+ --------+ +| ?>90 ?| ?Stage one ?| ? Normal ?+ ---+ ---+ -------+| ?60-89 ?| ?Stage two ?| ? Decreased GFR ? + --+ --+ ------+| ?30-59 ?| ?Stage three ?| ? Stage three ? + --+ --+ ------+| ?15-29 ?| ?Stage four ? | ? Stage four ?+ ---+ ---+ -------+| ?<15 (or dialysis) ? ?| ?Stage five ? | ? Stage five ?+ ---+ ---+ -------+ *Each stage assumes the associated GFR level has been in effect for at least three months. ?Stages 1 to 5, with or without kidney disease, indicate chronic kidney disease. Notes: Determination of stages one and two (with eGFR >59mL/min/1.73 m2) requires estimation of kidney damage for at least three months as defined by structural or functional abnormalities of the kidney, manifested by either:Pathological abnormalities or Markers of kidney damage (including abnormalities in the composition of the blood or urine or abnormalities in imaging tests). Lab Interpretation Abnormal (test code = 04813-7) [facility] with [id number] 10:20:00 Test Item Value Reference Range Interpretation Comments WBC (test code = See_Comment [Automated 6690-2) message] The sy stem which generated this result transmitted reference range : 4.20 - 10.70 10*3/?L. The reference range was not used to interpret this result as normal/abnormal . RBC (test code = See_Comment L [Automated 029-8) message] The sy stem which generated this result transmitted reference range : 4.26 - 5.52 10*6/?L. The reference range was not used to interpret this result as normal/abnormal . HGB (test code = 12.8 g/dL 12.2-16.4 718-7) HCT (test code = 38.7 % 38.4-49.3 4544-3) MCV (test code = 105.7 fL 81.7-95.6 H 787-2) MCH (test code = 35.0 pg 26.1-32.7 H 785-6) MCHC (test code = 33.1 g/dL 31.2-35 786-4) RDW-SD (test code = 60.7 fL 38.5-51.6 H 67591-8) RDW-CV (test code = 15.4 % 12.1-15.4 788-0) PLT (test code = See_Comment [Automated 777-3) message] The sy stem which generated this result transmitted reference range : 150 - 328 10*3/ ?L. The reference r kevin was not used to interpret this result as normal/abnormal . MPV (test code = 10.9 fL 9.8-13 11383-1) NRBC/100 WBC (test See_Comment [Automat ed code = 6311873881) message] The system which generated this result transmitted reference range : 0.0 - 10.0 /100 WBCs. The refer ence range was not u sed to interpret th is result as normal/abnormal . NRBC x10^3 (test code <0.01 See_Comment [Auto mated = 8615266283) message] The s ystem which generated this result transmitted reference range : 10*3/?L. The reference range was not used to interpret this result as normal/abnormal . GRAN MAT (NEUT) % 83.9 % (test code = 770-8) IMM GRAN % (test code 0.80 % = 3811507573) LYMPH % (test code = 8.9 % 736-9) MONO % (test code = 5.9 % 5905-5) EOS % (test code = 0.1 % 713-8) BASO % (test code = 0.4 % 706-2) GRAN MAT x10^3(ANC) 8.52 10*3/uL 1.99-6.95 H (test code = 5242927183) IMM GRAN x10^3 (test 0.08 10*3/uL 0-0.06 H code = 5674183460) LYMPH x10^3 (test code 0.90 10*3/uL 1.09-3.23 L = 731-0) MONO x10^3 (test code 0.60 10*3/uL 0.36-1.02 = 742-7) EOS x10^3 (test code = <0.03 0.06-0.53 L 711-2) BASO x10^3 (test code 0.04 10*3/uL 0.01-0.09 = 704-7) Lab Interpretation Abnormal (test code = 39603-3) [facility] & CHLAMYDIA AMPLIFIED [id number] 18:42:00 Test Item Value Reference Range Interpretation Comments C. trachomatis Nucleic Negative Negative Acid (test code = 09041-2) N. gonorrhoeae Nucleic Negative Negative Acid (test code = 72287-8) BERYL (test code = BERYL) Reliable results are dependent on adequate specimen collection. ? A positive result obtained from a patient after therapeutic treatment cannot be interpreted as indicating the presence of viable organisms. ?For patients on whom a false positive result may have adverse psychosocial impact, retesting is advised. Indeterminate: Unable to generate a valid test result on this specimen. ?Please submit a new specimen for repeat testing if clinically indicated. Chlamydia trachomatis/Neisseria gonorrhoeae nucleic acid amplification testing (NAAT) has not been validated for medico-legal specimens (sexual abuse in selene-pubertal and pre-pubertal children, sexual assault, and legal cases). ?Culture for Chlamydia trachomatis and/or Neisseria gonorrhoeae from clinically appropriate sites is the method of choice in these cases. ? Results from this testing should be interpreted in conjunction with other laboratory and clinical data available to the clinician. Lab Interpretation Normal (test code = 63581-4) [facility] (NA, K, CL, CO2, GLUCOSE, BUN, CREATININE, CA)2020-02-01 10:08:00 Test Item Value Reference Range Interpretation Comments NA (test code = 140 mmol/L 135-145 6486250608) K (test code = 4.7 mmol/L 3.5-5 1004809534) CL (test code = 106 mmol/L 98-108 9050842940) CO2 TOTAL (test code = 26 mmol/L 23-31 4691345180) AGAP (test code = 2-16 8537172417) BUN (test code = 7 mg/dL 7-23 7788410842) GLUCOSE (test code = 127 mg/dL 70-110 H 6048750355) CREATININE (test code = 0.51 mg/dL 0.6-1.25 L 9774927673) CALCIUM (test code = 9.2 mg/dL 8.6-10.6 5654109689) eGFR Calculation mL/min/1.73m2 (Non-) (test code = 2498338791) eGFR Calculation mL/min/1.73m2 () (test code = 7220422867) BERYL (test code = BERYL) Association of Glomerular Filtration Rate (GFR) and Staging of Kidney Disease* + --+ --+ ------+| GFR (mL/min/1.73 m2) ?| With Kidney Damage ?| ?Without Kidney Damage+ --------+ --------+ +| ?>90 ?| ?Stage one ?| ? Normal ?+ ---+ ---+ -------+| ?60-89 ?| ?Stage two ?| ? Decreased GFR ? + --+ --+ ------+| ?30-59 ?| ?Stage three ?| ? Stage three ? + --+ --+ ------+| ?15-29 ?| ?Stage four ? | ? Stage four ?+ ---+ ---+ -------+| ?<15 (or dialysis) ? ?| ?Stage five ? | ? Stage five ?+ ---+ ---+ -------+ *Each stage assumes the associated GFR level has been in effect for at least three months. ?Stages 1 to 5, with or without kidney disease, indicate chronic kidney disease. Notes: Determination of stages one and two (with eGFR >59mL/min/1.73 m2) requires estimation of kidney damage for at least three months as defined by structural or functional abnormalities of the kidney, manifested by either:Pathological abnormalities or Markers of kidney damage (including abnormalities in the composition of the blood or urine or abnormalities in imaging tests). Lab Interpretation Abnormal (test code = 01819-0) [facility] with [id number] 09:52:00 Test Item Value Reference Range Interpretation Comments WBC (test code = See_Comment [Automated 1184-2) message] The sy stem which generated this result transmitted reference range : 4.20 - 10.70 10*3/?L. The reference range was not used to interpret this result as normal/abnormal . RBC (test code = See_Comment L [Automated 9-8) message] The sy stem which generated this result transmitted reference range : 4.26 - 5.52 10*6/?L. The reference range was not used to interpret this result as normal/abnormal . HGB (test code = 12.2 g/dL 12.2-16.4 718-7) HCT (test code = 37.4 % 38.4-49.3 L 4544-3) MCV (test code = 105.6 fL 81.7-95.6 H 787-2) MCH (test code = 34.5 pg 26.1-32.7 H 785-6) MCHC (test code = 32.6 g/dL 31.2-35 786-4) RDW-SD (test code = 59.5 fL 38.5-51.6 H 12165-2) RDW-CV (test code = 15.2 % 12.1-15.4 788-0) PLT (test code = See_Comment [Automated 777-3) message] The sy stem which generated this result transmitted reference range : 150 - 328 10*3/ ?L. The reference r kevin was not used to interpret this result as normal/abnormal . MPV (test code = 10.7 fL 9.8-13 88496-6) NRBC/100 WBC (test See_Comment [Automat ed code = 8872743492) message] The system which generated this result transmitted reference range : 0.0 - 10.0 /100 WBCs. The refer ence range was not u sed to interpret th is result as normal/abnormal . NRBC x10^3 (test code <0.01 See_Comment [Auto mated = 2095145523) message] The s ystem which generated this result transmitted reference range : 10*3/?L. The reference range was not used to interpret this result as normal/abnormal . GRAN MAT (NEUT) % 83.4 % (test code = 770-8) IMM GRAN % (test code 0.60 % = 7237128613) LYMPH % (test code = 7.6 % 736-9) MONO % (test code = 8.0 % 5905-5) EOS % (test code = 0.0 % 713-8) BASO % (test code = 0.4 % 706-2) GRAN MAT x10^3(ANC) 6.70 10*3/uL 1.99-6.95 (test code = 7476096100) IMM GRAN x10^3 (test 0.05 10*3/uL 0-0.06 code = 3789291844) LYMPH x10^3 (test code 0.61 10*3/uL 1.09-3.23 L = 731-0) MONO x10^3 (test code 0.64 10*3/uL 0.36-1.02 = 742-7) EOS x10^3 (test code = <0.03 0.06-0.53 L 711-2) BASO x10^3 (test code 0.03 10*3/uL 0.01-0.09 = 704-7) Lab Interpretation Abnormal (test code = 79485-8) [facility] ABDOMEN W CONTRAST [id number] 23:38:36 Impression: 1. ?No evidence of focal pancreatic lesions, ductal dilatation, pancreasdivisum, or acute/chronic pancreatitis. 2. ?Cholelithiasis with no evidence of acute cholecystitis. Hepaticsteatosiswith a focal T2 hyperintensity which is likely a cyst or a smallhemangioma seen in the left lobe of the liver.Exam: MR ABDOMEN W CONTRAST MRCP Clinical History: chronic pancreatitis Comparison: CT from December 2019 Findings: The visualized lung bases are clear and there is no evidence of pleural orpericardial effusion. The liver shows no suspicious focal lesions or biliary ductal dilatation.Significant signal drop on out of phase images is consistent with hepaticsteatosis. A focus of T2 hyperintensity seen in the left lobe of liver(6:19) which shows T2 shine through and is likely a cyst or smallhemangioma as it is not seen on the contrast- enhanced images. There is noevidence of focal abnormal enhancement or restricted effusion. The gallbladder shows tiny intraluminal filling defects concerning f orcholelithiasis. There is no evidence of acute cholecystitis. The extrahepatic CBD is not dilated. An measures approximately 0.5 cm in diameter(4:40 and 6:37). The pancreas shows preserved hyperintense T1 signal and no evidence offocal lesions. The pancreatic duct is nondilated and there is no evidenceof pancreas divisum. The contrast-enhanced images show uniform enhancementwithout any focal lesions. There is no evidence of restricted diffusion. The adrenals, spleen, and the kidneys are unremarkable. Tiny M1znkxbixhnhitfjmp which are nonenhancing seen in the left kidney are simplecysts. There is no evidence of free fluid, air, or lymphadenopathy seen in theabdomen. No focal bone lesions are visual ized. [facility], Radiant Results Inft User - 01/31/2020 5:39 PM CSTExam: MR ABDOMEN W CONTRAST MRCPClinical History: chronic pancreatitis Comparison: CT from December 2019Findings: The visualized lung bases are clear and there is no evidence of pleural orpericardial effusion.The liver shows no suspicious focal lesions or biliary ductal dilatation.Significant signal drop on out of phase images is consistent with hepaticsteatosis. A focus of T2 hyperintensity seen in the left lobe of liver(6:19) which shows T2 shine through and is likely a cyst or smallhemangioma as it is not seen on the contrast-enhanced images. There is noevidence of focal abnormal enhancement or restricted effusion.The gallbladder shows tiny intraluminal filling defects concerning forcholelithiasis. There is no evidence of acute cholecystitis. The extrahepatic CBD is not dilated. An measures approximately 0.5 cm in diameter(4:40 and 6:37).The pancreas shows preserved hyperintense T1 signal and no evidence offocal lesions. The pancreatic duct is nondilated and there is no evidenceof pancreas divisum. The contrast- enhanced images show uniform enhancementwithout any focal lesions. There is no evidence of restricted diffusion.The adrenals, spleen, and the kidneys are unremarkable. Tiny A8vhtfcjqcxownfyno which are nonenhancing seenin the left kidney are simplecysts.There is no evidence of free fluid, air, or lymphadenopathy seen in theabdomen. No focal bone lesions are visualized.IMPRESSIONImpression: 1. No evidence of focal pancreatic lesions, ductal dilatation, pancreasdivisum, or acute/chronic pancreatitis.2. Cholelithiasis with no evidence of acute cholecystitis. Hepaticsteatosis with a focal T2 hyperintensity which is likely a cyst or a smallhemangioma seen in the left lobe of the liver.[facility] (NA, K, CL, CO2, GLUCOSE, BUN, CREATININE, CA)2020-01-31 10:18:00 Test Item Value Reference Range Interpretation Comments NA (test code = 137 mmol/L 135-145 0528948216) K (test code = 3.9 mmol/L 3.5-5 9018428675) CL (test code = 106 mmol/L 98-108 6986617056) CO2 TOTAL (test code = 25 mmol/L 23-31 1946751773) AGAP (test code = 2-16 4080522308) BUN (test code = 4 mg/dL 7-23 L 0060768810) GLUCOSE (test code = 105 mg/dL 70-110 8512067339) CREATININE (test code = 0.54 mg/dL 0.6-1.25 L 5764309248) CALCIUM (test code = 8.4 mg/dL 8.6-10.6 L 8115381889) eGFR Calculation mL/min/1.73m2 (Non-) (test code = 4965783885) eGFR Calculation mL/min/1.73m2 () (test code = 3660841813) BERYL (test code = BERYL) Association of Glomerular Filtration Rate (GFR) and Staging of Kidney Disease* + --+ --+ ------+| GFR (mL/min/1.73 m2) ?| With Kidney Damage ?| ?Without Kidney Damage+ --------+ --------+ +| ?>90 ?| ?Stage one ?| ? Normal ?+ ---+ ---+ -------+| ?60-89 ?| ?Stage two ?| ? Decreased GFR ? + --+ --+ ------+| ?30-59 ?| ?Stage three ?| ? Stage three ? + --+ --+ ------+| ?15-29 ?| ?Stage four ? | ? Stage four ?+ ---+ ---+ -------+| ?<15 (or dialysis) ? ?| ?Stage five ? | ? Stage five ?+ ---+ ---+ -------+ *Each stage assumes the associated GFR level has been in effect for at least three months. ?Stages 1 to 5, with or without kidney disease, indicate chronic kidney disease. Notes: Determination of stages one and two (with eGFR >59mL/min/1.73 m2) requires estimation of kidney damage for at least three months as defined by structural or functional abnormalities of the kidney, manifested by either:Pathological abnormalities or Markers of kidney damage (including abnormalities in the composition of the blood or urine or abnormalities in imaging tests). Lab Interpretation Abnormal (test code = 35021-3) [facility] with [id number] 09:58:00 Test Item Value Reference Range Interpretation Comments WBC (test code = See_Comment [Automated 6690-2) message] The sy stem which generated this result transmitted reference range : 4.20 - 10.70 10*3/?L. The reference range was not used to interpret this result as normal/abnormal . RBC (test code = See_Comment L [Automated 789-8) message] The sy stem which generated this result transmitted reference range : 4.26 - 5.52 10*6/?L. The reference range was not used to interpret this result as normal/abnormal . HGB (test code = 11.7 g/dL 12.2-16.4 L 718-7) HCT (test code = 35.8 % 38.4-49.3 L 4544-3) MCV (test code = 107.2 fL 81.7-95.6 H 787-2) MCH (test code = 35.0 pg 26.1-32.7 H 785-6) MCHC (test code = 32.7 g/dL 31.2-35 786-4) RDW-SD (test code = 62.1 fL 38.5-51.6 H 21197-7) RDW-CV (test code = 15.6 % 12.1-15.4 H 788-0) PLT (test code = See_Comment [Automated 777-3) message] The sy stem which generated this result transmitted reference range : 150 - 328 10*3/ ?L. The reference r kevin was not used to interpret this result as normal/abnormal . MPV (test code = 11.0 fL 9.8-13 81945-0) NRBC/100 WBC (test See_Comment [Automat ed code = 7725405509) message] The system which generated this result transmitted reference range : 0.0 - 10.0 /100 WBCs. The refer ence range was not u sed to interpret th is result as normal/abnormal . NRBC x10^3 (test code <0.01 See_Comment [Auto mated = 9319774527) message] The s ystem which generated this result transmitted reference range : 10*3/?L. The reference range was not used to interpret this result as normal/abnormal . GRAN MAT (NEUT) % 71.5 % (test code = 770-8) IMM GRAN % (test code 0.80 % = 0581329362) LYMPH % (test code = 11.0 % 736-9) MONO % (test code = 11.7 % 5905-5) EOS % (test code = 3.9 % 713-8) BASO % (test code = 1.1 % 706-2) GRAN MAT x10^3(ANC) 4.63 10*3/uL 1.99-6.95 (test code = 3656213398) IMM GRAN x10^3 (test 0.05 10*3/uL 0-0.06 code = 7308451724) LYMPH x10^3 (test code 0.71 10*3/uL 1.09-3.23 L = 731-0) MONO x10^3 (test code 0.76 10*3/uL 0.36-1.02 = 742-7) EOS x10^3 (test code = 0.25 10*3/uL 0.06-0.53 711-2) BASO x10^3 (test code 0.07 10*3/uL 0.01-0.09 = 704-7) Lab Interpretation Abnormal (test code = 55360-0) [facility]W [id number] 09:26:45 No acute bony abnormality is present. EXAM: XR ANKLE 3+ VW LEFT HISTORY: pain AP,lateral,mortise COMPARISON: None FINDINGS: Imaging of the ankle demonstrates minimal calcaneal enthesophyte formation.The ankle mortise is anatomic. ?No acute bony abnormality is present. [facility], Radiant Results Inft User- 01/31/2020 3:27 AM CSTEXAM:XR ANKLE 3+ VW LEFTHISTORY:pain AP,lateral,mortiseCOMPARISON:NoneFINDINGS: Imaging of the ankle demonstrates minimal calcaneal enthesophyte formation.The ankle mortise is anatomic. No acute bony abnormality is present.IMPRESSIONNo acute bony abnormality is present.[facility]rapevineJOINT FLUID CRYSTALS [id number] 22:50:00 Test Item Value Reference Range Interpretation Comments JT FL JEREMY (test code No crystals seen No crystals seen = 6760556955) UNSPUN BODY FLUID Yellow COLOR (test code = 8516100358) UNSPUN BODY FLUID Turbid CLARITY (test code = 3737854275) SPUN BODY FLUID COLOR Yellow (test code = 7822503889) SPUN BODY FLUID Clear CLARITY (test code = 8127489252) Sediment (test code = The sediment volume is 7610946334) <0.1 mLs of the total fluid volume of 1mL and its color is white. [facility] GrapevineBODY FLUID DIRECT [id number] 21:41:00 Test Item Value Reference Range Interpretation Comments BF COLOR (test code Light Yellow = 5954046958) TURBIDITY (test code Turbid = 6626856397) BF WBC Count (test See_Comment This is a n code = 3106040893) approxima te count. Actual count ma y be higher due to presence of clu mping. [Automated mes jose miguel] The system Lumi[employer] generated this result transmitted ref erence range: 0 - 150 /?L. The reference r kevin was not used to interpret this result as normal/abnor mal. BF RBC Count (test <3000 See_Comment This is a n code = 9540264061) approxima te count. Actual count ma y be higher due to presence of clu mping. [Automated me ssage] The system Lumi[employer] generated this result transmitted ref erence range: /?L. T he reference range was not used to int erpret this result as normal/abnormal . [facility] GrapevineBODY FLUID MANUAL [id number] 21:41:00 Test Item Value Reference Range Interpretation Comments BF SEGS (test code = 9541951615) 91 % BF LYMPHS (test code = 8446770013) 5 % MACROPHAGE (test code = 6190675613) 4 % #CELS CNTD (test code = 6825765815) [facility] GrapevineC-REACTIVE [id number] 20:20:00 Test Item Value Reference Range Interpretation Comments CRP (test code = 1761424345) 4.7 mg/dL <0.8 H Lab Interpretation (test code = Abnormal 57457-1) [facility]vineMRSA / MSSA SCREEN BY CLAIRE [id number] 19:39:00 Test Item Value Reference Range Interpretation Comments MSSA Screen by Claire YOU (test code Negative Negative = 93758-9) MRSA/MSSA Positive? (test code = No No 5381405773) Lab Interpretation (test code = Normal 03939-9) [facility]rapevineURINALYSIS2020-10-31 18:54:00 Test Item Value Reference Range Interpretation Comments APPEARANCE (test code = Clear Clear 6492978294) COLOR (test code = Straw Yellow A 9972046238) PH (test code = 4.8-8.0 5490553729) SP GRAVITY (test code = 1.003-1.030 7988196552) GLU U QUAL (test code = Normal Normal 3800065877) BLOOD (test code = Negative Negative 7041311892) KETONES (test code = Negative Negative 9027363637) PROTEIN (test code = Negative Negative 2887-8) UROBILIN (test code = Normal Normal 8534752189) BILIRUBIN (test code = Negative Negative 6579774113) NITRITE (test code = Negative Negative 2890559041) LEUK CAMMIE (test code = Negative Negative 3714963381) RBC/HPF (test code = See_Comment [Autom ated message] 4372362103) The system Lumiata generated this result transmitted ref erence range: 0 - 3 HP F. The reference range was not used to int erpret this result as normal/abnormal . WBC/HPF (test code = <1 See_Comment [Autom ated message] 8440864542) The system Lumi[employer] generated this result transmitted ref erence range: 0 - 5 HP F. The reference range was not used to int erpret this result as normal/abnormal . BACTERIA (test code = Negative Negative 4290001751) Lab Interpretation (test Abnormal code = 58306-3) [facility]vineSEDIMENTATION [id number] 16:17:00 Test Item Value Reference Range Interpretation Comments ESR (test code = See_Comment H [Automated message] 7192262660) The system Lumiata generated this result transmitted ref erence range: 0 - 10 m m/HR. The reference r kevin was not used to interpret this result as normal/abnor mal. Lab Interpretation (test Abnormal code = 57046-2) [facility] (NA, K, CL, CO2, GLUCOSE, BUN, CREATININE, CA)2020-01-30 10:06:00 Test Item Value Reference Range Interpretation Comments NA (test code = 135 mmol/L 135-145 5220858824) K (test code = 4.2 mmol/L 3.5-5 2799644448) CL (test code = 107 mmol/L 98-108 0364504528) CO2 TOTAL (test code = 23 mmol/L 23-31 4917013866) AGAP (test code = 2-16 6453110141) BUN (test code = 5 mg/dL 7-23 L 3288605362) GLUCOSE (test code = 98 mg/dL 70-110 1764655989) CREATININE (test code = 0.54 mg/dL 0.6-1.25 L 8145520027) CALCIUM (test code = 8.3 mg/dL 8.6-10.6 L 4997552803) eGFR Calculation mL/min/1.73m2 (Non-) (test code = 7136323552) eGFR Calculation mL/min/1.73m2 () (test code = 2248075996) BERYL (test code = BERYL) Association of Glomerular Filtration Rate (GFR) and Staging of Kidney Disease* + --+ --+ ------+| GFR (mL/min/1.73 m2) ?| With Kidney Damage ?| ?Without Kidney Damage+ --------+ --------+ +| ?>90 ?| ?Stage one ?| ? Normal ?+ ---+ ---+ -------+| ?60-89 ?| ?Stage two ?| ? Decreased GFR ? + --+ --+ ------+| ?30-59 ?| ?Stage three ?| ? Stage three ? + --+ --+ ------+| ?15-29 ?| ?Stage four ? | ? Stage four ?+ ---+ ---+ -------+| ?<15 (or dialysis) ? ?| ?Stage five ? | ? Stage five ?+ ---+ ---+ -------+ *Each stage assumes the associated GFR level has been in effect for at least three months. ?Stages 1 to 5, with or without kidney disease, indicate chronic kidney disease. Notes: Determination of stages one and two (with eGFR >59mL/min/1.73 m2) requires estimation of kidney damage for at least three months as defined by structural or functional abnormalities of the kidney, manifested by either:Pathological abnormalities or Markers of kidney damage (including abnormalities in the composition of the blood or urine or abnormalities in imaging tests). Lab Interpretation Abnormal (test code = 93833-5) [facility] with [id number] 10:00:00 Test Item Value Reference Range Interpretation Comments WBC (test code = See_Comment [Automated 6690-2) message] The sy stem which generated this result transmitted reference range : 4.20 - 10.70 10*3/?L. The reference range was not used to interpret this result as normal/abnormal . RBC (test code = See_Comment L [Automated 789-8) message] The sy stem which generated this result transmitted reference range : 4.26 - 5.52 10*6/?L. The reference range was not used to interpret this result as normal/abnormal . HGB (test code = 11.9 g/dL 12.2-16.4 L 718-7) HCT (test code = 36.6 % 38.4-49.3 L 4544-3) MCV (test code = 108.9 fL 81.7-95.6 H 787-2) MCH (test code = 35.4 pg 26.1-32.7 H 785-6) MCHC (test code = 32.5 g/dL 31.2-35 786-4) RDW-SD (test code = 62.5 fL 38.5-51.6 H 80996-1) RDW-CV (test code = 15.8 % 12.1-15.4 H 788-0) PLT (test code = See_Comment [Automated 777-3) message] The sy stem which generated this result transmitted reference range : 150 - 328 10*3/ ?L. The reference r kevin was not used to interpret this result as normal/abnormal . MPV (test code = 10.9 fL 9.8-13 32160-1) NRBC/100 WBC (test See_Comment [Automat ed code = 2012361358) message] The system which generated this result transmitted reference range : 0.0 - 10.0 /100 WBCs. The refer ence range was not u sed to interpret th is result as normal/abnormal . NRBC x10^3 (test code <0.01 See_Comment [Auto mated = 3925412862) message] The s ystem which generated this result transmitted reference range : 10*3/?L. The reference range was not used to interpret this result as normal/abnormal . GRAN MAT (NEUT) % 73.8 % (test code = 770-8) IMM GRAN % (test code 1.10 % = 5250636783) LYMPH % (test code = 10.1 % 736-9) MONO % (test code = 11.5 % 5905-5) EOS % (test code = 2.4 % 713-8) BASO % (test code = 1.1 % 706-2) GRAN MAT x10^3(ANC) 5.51 10*3/uL 1.99-6.95 (test code = 0444610265) IMM GRAN x10^3 (test 0.08 10*3/uL 0-0.06 H code = 8547394214) LYMPH x10^3 (test code 0.75 10*3/uL 1.09-3.23 L = 731-0) MONO x10^3 (test code 0.86 10*3/uL 0.36-1.02 = 742-7) EOS x10^3 (test code = 0.18 10*3/uL 0.06-0.53 711-2) BASO x10^3 (test code 0.08 10*3/uL 0.01-0.09 = 704-7) Lab Interpretation Abnormal (test code = 18391-1) [facility]vineXR [facility]+ VW [id number] 10:29:15 Mild soft tissue swelling of the medial foot with no underlying acuteosseous abnormality. Preliminary Report Dictated by Resident: Michael Augustin I, Tc Dahl MD., have reviewed this study and agree with the abovereport.XR FOOT 3+ VW LEFT HISTORY: 49 years-old Male; foot swelling COMPARISON: None FINDINGS: Radiographs of the left foot demonstrate no acute fracture or dislocation.Cortical stress hypertrophy is seen about the metatarsals The joint spacesare maintained. Mild soft tissue swelling is noted medial aspect of thehindfoot. Subchondral sclerosis with minimal osteophyte formation is s eenalong the posterior articular margin of the navicular. [facility], Radiant Results Inft User - 01/29/2020 5:30 AM CDTXR FOOT 3+ VW LEFTHISTORY: 49 years-old Male; foot swelling COMPARISON: NoneFINDINGS:Radiographs of the left foot demonstrate no acute fracture or dislocation.Cortical stress hypertrophy is seen about the metatarsals The joint spacesare maintained. Mild soft tissue swelling is noted medial aspect of thehindfoot. Subchondral sclerosis with minimal osteophyte formation is seenalong the posterior articular margin of the navicular.IMPRESSIONMild soft tissue swelling of the medial foot withno underlying acuteosseous abnormality.Preliminary Report Dictated by Resident: Tc Gill MD., have reviewed this study and agree with the abovereport.[facility]vineCOVID-19 (ID NOW RAPID TESTING) 2020-01-29 05:52:00 Test Item Value Reference Range Interpretation Comments SARS-CoV-2 Rapid ID NOW Not Detected Not Detected (test code = 91173-7) BERYL (test code = BERYL) ID NOW COVID-19 Assay is an isothermal nucleic acid amplification test intended for the qualitative detection of nucleic acid from SARS-CoV-2 viral RNA in nasopharyngeal ([employer]) specimens. It is used under Emergency Use Authorization (EUA) by FDA. The limit of detection (LOD) of the assay is 125 Genome Equivalents/mL. A positive result is indicative of the presence of SARS-CoV-2 RNA. ?Clinical correlation with patient history and other diagnostic information is necessary to determine patient infection status. A negative (Not Detected) result does not preclude SARS-CoV-2 infection. In patients with clinical symptoms and other tests that are consistent with SARS-CoV-2 infection, negative results should be treated as presumptive negative and a new specimen should be tested with alternative PCR molecular test. Invalid: Please collect a new specimen for repeat patient testing if clinically indicated. Lab Interpretation Normal (test code = 87353-6) [facility] (NA, K, CL, CO2, GLUCOSE, BUN, CREATININE, CA)2020-01-29 05:37:00 Test Item Value Reference Range Interpretation Comments NA (test code = 137 mmol/L 135-145 2104325005) K (test code = 4.1 mmol/L 3.5-5 2804309446) CL (test code = 107 mmol/L 98-108 5476450872) CO2 TOTAL (test code = 26 mmol/L 23-31 5921587424) AGAP (test code = 2-16 0386256169) BUN (test code = 7 mg/dL 7-23 2587098485) GLUCOSE (test code = 122 mg/dL 70-110 H 1035743763) CREATININE (test code = 0.62 mg/dL 0.6-1.25 8100821188) CALCIUM (test code = 9.1 mg/dL 8.6-10.6 5146207371) eGFR Calculation mL/min/1.73m2 (Non-) (test code = 5895071007) eGFR Calculation mL/min/1.73m2 () (test code = 9484525493) BERYL (test code = BERYL) Association of Glomerular Filtration Rate (GFR) and Staging of Kidney Disease* + --+ --+ ------+| GFR (mL/min/1.73 m2) ?| With Kidney Damage ?| ?Without Kidney Damage+ --------+ --------+ +| ?>90 ?| ?Stage one ?| ? Normal ?+ ---+ ---+ -------+| ?60-89 ?| ?Stage two ?| ? Decreased GFR ? + --+ --+ ------+| ?30-59 ?| ?Stage three ?| ? Stage three ? + --+ --+ ------+| ?15-29 ?| ?Stage four ? | ? Stage four ?+ ---+ ---+ -------+| ?<15 (or dialysis) ? ?| ?Stage five ? | ? Stage five ?+ ---+ ---+ -------+ *Each stage assumes the associated GFR level has been in effect for at least three months. ?Stages 1 to 5, with or without kidney disease, indicate chronic kidney disease. Notes: Determination of stages one and two (with eGFR >59mL/min/1.73 m2) requires estimation of kidney damage for at least three months as defined by structural or functional abnormalities of the kidney, manifested by either:Pathological abnormalities or Markers of kidney damage (including abnormalities in the composition of the blood or urine or abnormalities in imaging tests). Lab Interpretation Abnormal (test code = 22062-7) [facility]vineHepatic Function Panel (ALB, T.PRO, BILI T, BU/BC, ALT, AST, ALK PHOS)2020-01-29 05:37:00 Test Item Value Reference Range Interpretation Comments TOTAL BILI (test code = 0448541069) 0.6 mg/dL 0.1-1.1 BILI UNCON (test code = 2081268312) 0.5 mg/dL 0.1-1.1 BILI CONJ (test code = 4092735319) 0.0 mg/dL 0-0.3 T PROTEIN (test code = 2970878040) 6.5 g/dL 6.3-8.2 ALBUMIN (test code = 7034934655) 3.4 g/dL 3.5-5 L ALK PHOS (test code = 5701080366) 92 U/L 34-122 ALTv (test code = 1742-6) 19 U/L 5-50 AST(SGOT) (test code = 7294609018) 33 U/L 13-40 Lab Interpretation (test code = Abnormal 74601-7) [facility] GrapevineLipase [id number] 05:36:00 Test Item Value Reference Range Interpretation Comments LIPASE (test code = 1624750974) 509 U/L 0-220 H Lab Interpretation (test code = Abnormal 92895-7) [facility] GrapevineURIC [id number] 05:36:00 Test Item Value Reference Range Interpretation Comments URIC ACID (test code = 0571180486) 5.8 mg/dL 3.6-8 Lab Interpretation (test code = Normal 68677-4) [facility] GrapevineCBC with [id number] 04:26:00 Test Item Value Reference Range Interpretation Comments WBC (test code = See_Comment H [Automated 9690-2) message] The sy stem which generated this result transmitted reference range : 4.20 - 10.70 10*3/?L. The reference range was not used to interpret this result as normal/abnormal . RBC (test code = See_Comment L [Automated 982-8) message] The sy stem which generated this result transmitted reference range : 4.26 - 5.52 10*6/?L. The reference range was not used to interpret this result as normal/abnormal . HGB (test code = 14.8 g/dL 12.2-16.4 718-7) HCT (test code = 45.0 % 38.4-49.3 4544-3) MCV (test code = 107.7 fL 81.7-95.6 H 787-2) MCH (test code = 35.4 pg 26.1-32.7 H 785-6) MCHC (test code = 32.9 g/dL 31.2-35 786-4) RDW-SD (test code = 63.8 fL 38.5-51.6 H 23310-8) RDW-CV (test code = 15.8 % 12.1-15.4 H 788-0) PLT (test code = See_Comment [Automated 777-3) message] The sy stem which generated this result transmitted reference range : 150 - 328 10*3/ ?L. The reference r kevin was not used to interpret this result as normal/abnormal . MPV (test code = 11.7 fL 9.8-13 57107-6) NRBC/100 WBC (test See_Comment [Automat ed code = 9579871160) message] The system which generated this result transmitted reference range : 0.0 - 10.0 /100 WBCs. The refer ence range was not u sed to interpret th is result as normal/abnormal . NRBC x10^3 (test code <0.01 See_Comment [Auto mated = 8927368084) message] The s ystem which generated this result transmitted reference range : 10*3/?L. The reference range was not used to interpret this result as normal/abnormal . GRAN MAT (NEUT) % 76.0 % (test code = 770-8) IMM GRAN % (test code 1.20 % = 0455037053) LYMPH % (test code = 10.1 % 736-9) MONO % (test code = 9.9 % 5905-5) EOS % (test code = 1.7 % 713-8) BASO % (test code = 1.1 % 706-2) GRAN MAT x10^3(ANC) 8.49 10*3/uL 1.99-6.95 H (test code = 4819111680) IMM GRAN x10^3 (test 0.13 10*3/uL 0-0.06 H code = 3516215711) LYMPH x10^3 (test code 1.13 10*3/uL 1.09-3.23 = 731-0) MONO x10^3 (test code 1.11 10*3/uL 0.36-1.02 H = 742-7) EOS x10^3 (test code = 0.19 10*3/uL 0.06-0.53 711-2) BASO x10^3 (test code 0.12 10*3/uL 0.01-0.09 H = 704-7) Lab Interpretation Abnormal (test code = 46274-8) [facility]vineOVA AND PARASITE EXAM [id number] 18:42:00 Test Item Value Reference Range Interpretation Comments OVAANDPARASITEINTERP (test Negative Negative INTERPRETIVE code = 55067-5) INFORMATION: Ova and Parasite, Fecal Method for identification of Ova and Parasit es includes wet mo unt and trichrome stains. Due to the various sheddin g cycles of many parasites, thre e separate stool specimens colle cted over a 5-7-day period are recommended for ova and parasite examination. A single negative result does not rule out the possibi lity of a parasitic infection. The ova and parasite ex am does not specifically de tect Cryptosporidium , Cyclospora, Cystoisospora, and Microsporidia. For additional test information ref er to [email or web address] consult, [email or web address] Performed By: Steffanie BAILEY [address] [place] [address] [id number] Director: Bisi Moy MD [facility] (NA, K, CL, CO2, GLUCOSE, BUN, CREATININE, CA)2020-01-20 10:12:00 Test Item Value Reference Range Interpretation Comments NA (test code = 139 mmol/L 135-145 2944623594) K (test code = 4.0 mmol/L 3.5-5 5237183162) CL (test code = 109 mmol/L 98-108 H 9210015338) CO2 TOTAL (test code = 28 mmol/L 23-31 0130289431) AGAP (test code = 2-16 4959286811) BUN (test code = <2 7-23 L 9833188063) GLUCOSE (test code = 92 mg/dL 70-110 7014066197) CREATININE (test code = 0.60 mg/dL 0.6-1.25 2832152879) CALCIUM (test code = 8.4 mg/dL 8.6-10.6 L 2491309162) eGFR Calculation mL/min/1.73m2 (Non-) (test code = 7285699220) eGFR Calculation mL/min/1.73m2 () (test code = 8265731519) BERYL (test code = BERYL) Association of Glomerular Filtration Rate (GFR) and Staging of Kidney Disease* + --+ --+ ------+| GFR (mL/min/1.73 m2) ?| With Kidney Damage ?| ?Without Kidney Damage+ --------+ --------+ +| ?>90 ?| ?Stage one ?| ? Normal ?+ ---+ ---+ -------+| ?60-89 ?| ?Stage two ?| ? Decreased GFR ? + --+ --+ ------+| ?30-59 ?| ?Stage three ?| ? Stage three ? + --+ --+ ------+| ?15-29 ?| ?Stage four ? | ? Stage four ?+ ---+ ---+ -------+| ?<15 (or dialysis) ? ?| ?Stage five ? | ? Stage five ?+ ---+ ---+ -------+ *Each stage assumes the associated GFR level has been in effect for at least three months. ?Stages 1 to 5, with or without kidney disease, indicate chronic kidney disease. Notes: Determination of stages one and two (with eGFR >59mL/min/1.73 m2) requires estimation of kidney damage for at least three months as defined by structural or functional abnormalities of the kidney, manifested by either:Pathological abnormalities or Markers of kidney damage (including abnormalities in the composition of the blood or urine or abnormalities in imaging tests). Lab Interpretation Abnormal (test code = 94770-2) [facility]59426[facility] (ALB,T.PRO,BILI T,BU/BC,ALT,AST,ALK PHOS)2020-01-20 09:31:00 Test Item Value Reference Range Interpretation Comments TOTAL BILI (test code = 8398226597) 0.5 mg/dL 0.1-1.1 BILI UNCON (test code = 2517183124) 0.3 mg/dL 0.1-1.1 BILI CONJ (test code = 5329777613) 0.0 mg/dL 0-0.3 T PROTEIN (test code = 2619289250) 5.1 g/dL 6.3-8.2 L ALBUMIN (test code = 3463057579) 2.7 g/dL 3.5-5 L ALK PHOS (test code = 3957692240) 106 U/L 34-122 ALTv (test code = 1742-6) 40 U/L 5-50 AST(SGOT) (test code = 4889535592) 63 U/L 13-40 H Lab Interpretation (test code = Abnormal 04608-6) [facility]2020-10-21 09:31:00 Test Item Value Reference Range Interpretation Comments MAGNESIUM (test code = 3728017687) 2.0 mg/dL 1.7-2.4 Lab Interpretation (test code = Normal 74227-4) [facility]2020-10-21 09:31:00 Test Item Value Reference Range Interpretation Comments LIPASE (test code = 3347669599) 128 U/L 0-220 Lab Interpretation (test code = Normal 63589-5) [facility] with [id number] 09:05:00 Test Item Value Reference Range Interpretation Comments WBC (test code = See_Comment [Automated 3190-2) message] The sy stem which generated this result transmitted reference range : 4.20 - 10.70 10*3/?L. The reference range was not used to interpret this result as normal/abnormal . RBC (test code = See_Comment L [Automated 193-8) message] The sy stem which generated this result transmitted reference range : 4.26 - 5.52 10*6/?L. The reference range was not used to interpret this result as normal/abnormal . HGB (test code = 11.6 g/dL 12.2-16.4 L 718-7) HCT (test code = 35.4 % 38.4-49.3 L 4544-3) MCV (test code = 112.0 fL 81.7-95.6 H 787-2) MCH (test code = 36.7 pg 26.1-32.7 H 785-6) MCHC (test code = 32.8 g/dL 31.2-35 786-4) RDW-SD (test code = 62.0 fL 38.5-51.6 H 86784-9) RDW-CV (test code = 14.8 % 12.1-15.4 788-0) PLT (test code = See_Comment [Automated 777-3) message] The sy stem which generated this result transmitted reference range : 150 - 328 10*3/ ?L. The reference r kevin was not used to interpret this result as normal/abnormal . MPV (test code = 10.8 fL 9.8-13 74708-3) NRBC/100 WBC (test See_Comment [Automat ed code = 8695021987) message] The system which generated this result transmitted reference range : 0.0 - 10.0 /100 WBCs. The refer ence range was not u sed to interpret th is result as normal/abnormal . NRBC x10^3 (test code <0.01 See_Comment [Auto mated = 7059326941) message] The s ystem which generated this result transmitted reference range : 10*3/?L. The reference range was not used to interpret this result as normal/abnormal . GRAN MAT (NEUT) % 71.0 % (test code = 770-8) IMM GRAN % (test code 1.10 % = 7146404017) LYMPH % (test code = 12.6 % 736-9) MONO % (test code = 11.4 % 5905-5) EOS % (test code = 2.3 % 713-8) BASO % (test code = 1.6 % 706-2) GRAN MAT x10^3(ANC) 4.06 10*3/uL 1.99-6.95 (test code = 1529039275) IMM GRAN x10^3 (test 0.06 10*3/uL 0-0.06 code = 2235277658) LYMPH x10^3 (test code 0.72 10*3/uL 1.09-3.23 L = 731-0) MONO x10^3 (test code 0.65 10*3/uL 0.36-1.02 = 742-7) EOS x10^3 (test code = 0.13 10*3/uL 0.06-0.53 711-2) BASO x10^3 (test code 0.09 10*3/uL 0.01-0.09 = 704-7) Lab Interpretation Abnormal (test code = 70543-4) [facility] ABDOMEN [id number] 19:37:51 Hepatomegaly and hepatic steatosis. A 0.4 cm gallbladder polyp. US ABDOMEN COMPLETE 01/19/2020 1:44 PM HISTORY: epigastric pain Looking at gall bladder, pancreatic COMPARISON: CT abdomen pelvis 01/16/2020 FINDINGS: LIVER: The liver is enlarged measuring 19.9 cm with increased parenchymalechogenicity consistent with hepatic steatosis. No focal hepatic lesion. Normal hepatopetal ?flow within the main portal vein. Main portal veindiameter: 1.1 cm. GALLBLADDER: Contracted gallbladder limiting evaluation for tiny stones. No cholelithiasis, pericholecystic fluid. Upper and wall thickening ofgallbladder likely related to contracted gallbladder. A 0.4 cm nonshadowingechogenic focus near gallbladder neck suggestive of polyp. No sonographicMurphy's sign. The common bile duct measures 0.5 cm. PANCREAS: The visualized portion of the pancreas is unremarkable. RIGHT KIDNEY: Length of 12.5 cm. Normal cortical thickness andechogenicity. No hydronephrosis. LEFT KIDNEY: Length of 11.8 cm. Normal cortical thickness and echogenicity.No hydronephrosis. SPLEEN: Measures 12.4 cm. AORTA: The proximal aorta measures 2.2 cm. IVC: The visualized portion is unremarkable. [facility], Radiant Results Inft User - 01/19/20202:39 PM CDTUS ABDOMEN COMPLETE 01/19/2020 1:44 PM HISTORY: epigastric pain Looking at gall bladder, p ancreaticCOMPARISON: CT abdomen pelvis 01/16/2020 FINDINGS: LIVER: The liver is enlarged measuring 19.9 cm with increased parenchymalechogenicity consistent with hepatic steatosis. No focal hepatic lesion. Normal hepatopetal flow within the main portal vein. Main portal veindiameter: 1.1 cm.GALLBLADDER: Contracted gallbladder limiting evaluation for tiny stones. No cholelithiasis, pericholecystic fluid. Upper and wall thickening ofgallbladder likely related to contracted gallbladder. A 0.4 cm nonshadowingechogenic focus near gallbladder neck suggestive of polyp. No sonographicMurphy's sign. The common bile duct measures 0.5 cm.PANCREAS: The visualized portion of the pancreas is unremarkable.RIGHT KIDNEY: Length of 12.5 cm. Normal cortical thickness andechogenicity. No hydronephrosis.LEFT KIDNEY: Length of 11.8 cm. Normal cortical thickness and echogenicity.No hydronephrosis.SPLEEN: Measures 12.4 cm.AORTA: The proximal aorta measures 2.2 cm.IVC: The visualized portion is unremarkable. IMPRESSION Hepatomegaly and hepatic steatosis.A 0.4 cm gallbladder polyp.[facility] (NA, K, CL, CO2, GLUCOSE, BUN, CREATININE, CA)2020-01-19 10:37:00 Test Item Value Reference Range Interpretation Comments NA (test code = 136 mmol/L 135-145 8083944832) K (test code = 3.3 mmol/L 3.5-5 L 6275475892) CL (test code = 105 mmol/L 98-108 6989549185) CO2 TOTAL (test code = 26 mmol/L 23-31 5143477332) AGAP (test code = 2-16 2858649425) BUN (test code = 2 mg/dL 7-23 L 7138538597) GLUCOSE (test code = 110 mg/dL 70-110 6469112740) CREATININE (test code = 0.54 mg/dL 0.6-1.25 L 2705532108) CALCIUM (test code = 8.4 mg/dL 8.6-10.6 L 3983734313) eGFR Calculation mL/min/1.73m2 (Non-) (test code = 4737472361) eGFR Calculation mL/min/1.73m2 () (test code = 9147745421) BERYL (test code = BERYL) Association of Glomerular Filtration Rate (GFR) and Staging of Kidney Disease* + --+ --+ ------+| GFR (mL/min/1.73 m2) ?| With Kidney Damage ?| ?Without Kidney Damage+ --------+ --------+ +| ?>90 ?| ?Stage one ?| ? Normal ?+ ---+ ---+ -------+| ?60-89 ?| ?Stage two ?| ? Decreased GFR ? + --+ --+ ------+| ?30-59 ?| ?Stage three ?| ? Stage three ? + --+ --+ ------+| ?15-29 ?| ?Stage four ? | ? Stage four ?+ ---+ ---+ -------+| ?<15 (or dialysis) ? ?| ?Stage five ? | ? Stage five ?+ ---+ ---+ -------+ *Each stage assumes the associated GFR level has been in effect for at least three months. ?Stages 1 to 5, with or without kidney disease, indicate chronic kidney disease. Notes: Determination of stages one and two (with eGFR >59mL/min/1.73 m2) requires estimation of kidney damage for at least three months as defined by structural or functional abnormalities of the kidney, manifested by either:Pathological abnormalities or Markers of kidney damage (including abnormalities in the composition of the blood or urine or abnormalities in imaging tests). Lab Interpretation Abnormal (test code = 16054-9) [facility]59623[facility] (ALB,T.PRO,BILI T,BU/BC,ALT,AST,ALK PHOS)2020-01-19 10:37:00 Test Item Value Reference Range Interpretation Comments TOTAL BILI (test code = 3573878677) 0.5 mg/dL 0.1-1.1 BILI UNCON (test code = 0356213459) 0.3 mg/dL 0.1-1.1 BILI CONJ (test code = 5263526233) 0.0 mg/dL 0-0.3 T PROTEIN (test code = 3106176699) 5.1 g/dL 6.3-8.2 L ALBUMIN (test code = 5540954743) 2.6 g/dL 3.5-5 L ALK PHOS (test code = 5846331384) 118 U/L 34-122 ALTv (test code = 1742-6) 38 U/L 5-50 AST(SGOT) (test code = 0870109163) 57 U/L 13-40 H Lab Interpretation (test code = Abnormal 81260-8) [facility]2020-10-20 10:37:00 Test Item Value Reference Range Interpretation Comments LIPASE (test code = 0710154213) 375 U/L 0-220 H Lab Interpretation (test code = Abnormal 16598-9) [facility] with Pwoqdxflqbdp2970-60-78 09:57:00 Test Item Value Reference Range Interpretation Comments WBC (test code = See_Comment [Automated 6690-2) message] The sy stem which generated this result transmitted reference range : 4.20 - 10.70 10*3/?L. The reference range was not used to interpret this result as normal/abnormal . RBC (test code = See_Comment L [Automated 789-8) message] The sy stem which generated this result transmitted reference range : 4.26 - 5.52 10*6/?L. The reference range was not used to interpret this result as normal/abnormal . HGB (test code = 11.7 g/dL 12.2-16.4 L 718-7) HCT (test code = 34.5 % 38.4-49.3 L 4544-3) MCV (test code = 109.9 fL 81.7-95.6 H 787-2) MCH (test code = 37.3 pg 26.1-32.7 H 785-6) MCHC (test code = 33.9 g/dL 31.2-35 786-4) RDW-SD (test code = 59.3 fL 38.5-51.6 H 10147-3) RDW-CV (test code = 14.6 % 12.1-15.4 788-0) PLT (test code = See_Comment [Automated 777-3) message] The sy stem which generated this result transmitted reference range : 150 - 328 10*3/ ?L. The reference r kevin was not used to interpret this result as normal/abnormal . MPV (test code = 10.9 fL 9.8-13 22794-6) NRBC/100 WBC (test See_Comment [Automat ed code = 1899828676) message] The system which generated this result transmitted reference range : 0.0 - 10.0 /100 WBCs. The refer ence range was not u sed to interpret th is result as normal/abnormal . NRBC x10^3 (test code <0.01 See_Comment [Auto mated = 2849488419) message] The s ystem which generated this result transmitted reference range : 10*3/?L. The reference range was not used to interpret this result as normal/abnormal . GRAN MAT (NEUT) % 72.9 % (test code = 770-8) IMM GRAN % (test code 1.30 % = 8596576517) LYMPH % (test code = 9.0 % 736-9) MONO % (test code = 13.5 % 5905-5) EOS % (test code = 2.0 % 713-8) BASO % (test code = 1.3 % 706-2) GRAN MAT x10^3(ANC) 4.36 10*3/uL 1.99-6.95 (test code = 2714045743) IMM GRAN x10^3 (test 0.08 10*3/uL 0-0.06 H code = 4749401086) LYMPH x10^3 (test code 0.54 10*3/uL 1.09-3.23 L = 731-0) MONO x10^3 (test code 0.81 10*3/uL 0.36-1.02 = 742-7) EOS x10^3 (test code = 0.12 10*3/uL 0.06-0.53 711-2) BASO x10^3 (test code 0.08 10*3/uL 0.01-0.09 = 704-7) Lab Interpretation Abnormal (test code = 59696-6) [facility] COVID [id number] 20:55:00COVID DMT InterpretationInterpretation/RecommendationsTests (PCR) for Active Infection by COVID-19 Virus:This patient has tested negative for the COVID-19 virus on two occasions. ?For approximately two-thirds of patients with a negative test result who were tested only once, the patient is truly negative and has not been infected with the COVID-19 virus. However, for those tested using a nasopharyngeal sample, each time the PCR test is performed there is approximately a chs-gz-vgtbp chance the patient had been infected and the result of the test is a "false negative". This occurs because the virus is predominantly in the lung and out of reach of the nasopharyngeal swab. Importantly, this patient has tested negative twice. Especially if there were minimal or no symptoms of the infection, this makes a false negative result less likely for this patient, and much more likely that the patient has notbeen infected with the COVID-19 virus.Tests for IgM and/or IgG Antibodies to COVID-19 Virus: ? A. ?Atest for IgM antibody to the COVID-19 virus would be highly informative at this time. IgM antibodiesto the COVID-19 virus identified in a high performing test, usually an MIQUEL or chemiluminescence based assay, should appear in most patients who are truly infected within approximately one week from the onset of symptoms, and in nearly all patients by 2 to 3 weeks after symptoms begin. If the IgM test is positive, even if the PCR tests for active infection were negative, it is highly probable that the patient has been infected with the virus at some point. ? B. ?A test for IgG antibodies to the COVID-19 virus was not performed and ?would also be informative if the IgM antibody test is positive, when performed. The sample for the IgG antibody test should be collected 2 or more weeks post onset of symptoms. The test for IgM and IgG antibodies can be performed using a single blood sample. ?It is the IgG antibodies that can confer long-term immunity to infectious agents. However, at this time, it is not known if the production of IgG antibodies indicates whether the patient is immune to future infections with the COVID-19 virus. It is also not known how long IgG antibodies to the COVID-19 virus persist, and therefore the length of immunity to future COVID-19 infections. ? C. ?Although it is uncom mon, some patients cannot ever mount an antibody response to infectious agents, such as COVID-19. Ifthere are persistently negative results for IgM and IgG antibodies, this may be the explanation.[facility]COVID [id number]-[id number] Rapid ID NOW (no units) ? ? Date ? Value ? 01/16/2020 ? Not Detected ? ? ? 01/05/2020 ? Not Detected ? [facility]UnTexas [facility]entonCT ABDOMEN PELVIS W [id number] 14:08:38No appreciable pancreatic or peripancreatic inflammatory change. Circumferential urinary bladder wall thickening slightly out of proportionto degree of distention. Correlate with UA. Circumferential distal esophageal wall thickening can be seen withesophagitis. Correlate clinically. Diffuse severe hepatic steatosis. Multiple additional findings and incidentals as above.CT ABDOMEN AND PELVIS WITH CONTRAST REASON FOR STUDY: reoccurent pancreatitis with worsening symptoms COMPARISON: 01/05/2020. TECHNIQUE: Multidetector axial CT images from lung bases through proximalthighs after IV administration ofnonionic iodinated contrast material.Coronal and sagittal MPR images also generated. INTRAVENOUS CONTRAST ADMINISTRATION (mL Omnipaque 350): 119. FINDINGS: Lower chest: Subsegmental atelectasis within the right lung base. ABDOMEN AND PELVISLiver: Redemonstration of severe hepatic steatosis. Liver is mildlyenlarged measuring 18.5 cm in craniocaudal dimension. No focal hepaticlesions identified within limits of unenhanced technique. Biliary Tract/GB: No radiopaque cholelithiasis. No pericholecystic freefluid. No biliary ductal dilatation. Spleen: Within normal limits. Pancreas: No pancreatic ductal dilatation or mass. Few hypoattenuatinglesions within the uncinate process of pancreatic head likelyrepresentative invagination of retroperitoneal fat into the pancreaticparenchyma. No appreciable primary pancreatic or peripancreatic inflammatory change orstranding. No drainable retroperitoneal collection. Adrenals: 8 mm nodular density at the left adrenal gland previouslymeasured 9 Hounsfield units onCT from 01/05/2020. This lesion istechnically indeterminate on current exam previously was consistentwith asmall adenoma. Kidneys: Kidneys enhance symmetrically. No hydronephrosis ornephrolithiasis. Bowel: Circumferential thickening of the distal esophagus (2:14). Moderaterectosigmoid diverticulosis without diverticulitis. Segmental fatty muralinfiltration throughout the colon can be seen with chronic inflammatorystates represent normal physiologic variant. Appendix is not visualized. However, thereis no right lower quadrantinflammatory change or stranding. Peritoneum: No pneumoperitoneum or free fluid. Vasculature: Bilateral accessory renal arteries. Circumaortic left renalvein configuration. Mil d/moderate atherosclerotic changes throughout theinfrarenal abdominal aorta and its branches. Mild infrarenal abdominalaortic ectasia measuring 2.2 cm in AP diameter at the level of L3 vertebralbody. Lymph Nodes: No lymphadenopathy. ? Pelvic organs: Urinary bladder is decompressed with circumferential urinarybladder wall thickening. Abdominal/Pelvic Wall: Tiny fat-containing umbilical hernia. Small caliberrecanalized umbilical vein. BONES: No acute or aggressive osseous abnormality. Mild multileveldegenerative changes scattered throughout the visualized spine. [facility], Radiant Results Inft User - 01/18/2020 9:09 AM CDTCT ABDOMEN AND PELVIS WITH CONTRASTREASON FOR STUDY: reo ccurent pancreatitis with worsening symptoms COMPARISON: 01/05/2020.TECHNIQUE: Multidetector axial CTimages from lung bases through proximalthighs after IV administration of nonionic iodinated contrastmaterial.Coronal and sagittal MPR images also generated.INTRAVENOUS CONTRAST ADMINISTRATION (mL Omnipaque 350): 119.FINDINGS: Lower chest: Subsegmental atelectasis within the right lung base.ABDOMEN AND PELVISLiver: Redemonstration of severe hepatic steatosis. Liver is mildlyenlarged measuring 18.5 cmin craniocaudal dimension. No focal hepaticlesions identified within limits of unenhanced technique.Biliary Tract/GB: No radiopaque cholelithiasis. No pericholecystic freefluid. No biliary ductal dilatation.Spleen: Within normal limits.Pancreas: No pancreatic ductal dilatation or mass. Few hypoattenuatinglesions within the uncinate process of pancreatic head likelyrepresentative invagination of retroperitoneal fat into the pancreaticparenchyma.No appreciable primary pancreatic or peripancreatic inflammatory change orstranding. No drainable retroperitoneal collection.Adrenals: 8 mm nodular density at the left adrenal gland previouslymeasured [address] from 01/05/2020[address] This lesion istec hnically indeterminate on current exam previously was consistent with asmall adenoma.Kidneys: Kidneys enhance symmetrically. No hydronephrosis ornephrolithiasis.Bowel: Circumferential thickening of thedistal esophagus (2:14). Moderaterectosigmoid diverticulosis without diverticulitis. Segmental fattymuralinfiltration throughout the colon can be seen with chronic inflammatorystates represent normal physiologic variant.Appendix is not visualized. However, there is no right lower quadrantinflammatorychange or stranding.Peritoneum: No pneumoperitoneum or free fluid.Vasculature: Bilateral accessory renal arteries. Circumaortic left renalvein configuration. Mild/moderate atherosclerotic changes throughout theinfrarenal abdominal aorta and its branches. Mild infrarenal abdominalaortic ectasia measuring 2.2 cm in AP diameter at the level of L3 vertebralbody.Lymph Nodes: No lymphadenopathy. Pelvic organs: Urinary bladder is decompressed with circumferential urinarybladder wall thickening.Abdominal/Pelvic Wall: Tiny fat-containing umbilical hernia. Small caliberrecanalizedumbilical vein.BONES: No acute or aggressive osseous abnormality. Mild multileveldegenerative changes scattered throughout the visualized spine.IMPRESSIONNo appreciable pancreatic or peripancreatic inflammatory change. Circumferential urinary bladder wall thickening slightly out of proportionto degreeof distention. Correlate with UA.Circumferential distal esophageal wall thickening can be seen withes ophagitis. Correlate clinically.Diffuse severe hepatic steatosis.Multiple additional findings and incidentals as above.[facility] Met[facility] Panel (NA, K, CL, CO2, GLUCOSE, BUN, CREATININE, CA)2020-01-18 13:13:00 Test Item Value Reference Range Interpretation Comments NA (test code = 134 mmol/L 135-145 L 9948195016) K (test code = 3.5 mmol/L 3.5-5 4405029675) CL (test code = 105 mmol/L 98-108 8971694728) CO2 TOTAL (test code = 24 mmol/L 23-31 7900378403) AGAP (test code = 2-16 6181621544) BUN (test code = 2 mg/dL 7-23 L 7565998487) GLUCOSE (test code = 76 mg/dL 70-110 8884362317) CREATININE (test code = 0.51 mg/dL 0.6-1.25 L 7646222581) CALCIUM (test code = 8.2 mg/dL 8.6-10.6 L 4127918394) eGFR Calculation mL/min/1.73m2 (Non-) (test code = 9001504509) eGFR Calculation mL/min/1.73m2 () (test code = 8770250965) BERYL (test code = BERYL) Association of Glomerular Filtration Rate (GFR) and Staging of Kidney Disease* + --+ --+ ------+| GFR (mL/min/1.73 m2) ?| With Kidney Damage ?| ?Without Kidney Damage+ --------+ --------+ +| ?>90 ?| ?Stage one ?| ? Normal ?+ ---+ ---+ -------+| ?60-89 ?| ?Stage two ?| ? Decreased GFR ? + --+ --+ ------+| ?30-59 ?| ?Stage three ?| ? Stage three ? + --+ --+ ------+| ?15-29 ?| ?Stage four ? | ? Stage four ?+ ---+ ---+ -------+| ?<15 (or dialysis) ? ?| ?Stage five ? | ? Stage five ?+ ---+ ---+ -------+ *Each stage assumes the associated GFR level has been in effect for at least three months. ?Stages 1 to 5, with or without kidney disease, indicate chronic kidney disease. Notes: Determination of stages one and two (with eGFR >59mL/min/1.73 m2) requires estimation of kidney damage for at least three months as defined by structural or functional abnormalities of the kidney, manifested by either:Pathological abnormalities or Markers of kidney damage (including abnormalities in the composition of the blood or urine or abnormalities in imaging tests). Lab Interpretation Abnormal (test code = 69730-3) [facility] 13:12:00 Test Item Value Reference Range Interpretation Comments LIPASE (test code = 5382766221) 199 U/L 0-220 Lab Interpretation (test code = Normal 22848-9) [facility] with [id number] 11:26:00 Test Item Value Reference Range Interpretation Comments WBC (test code = See_Comment [Automated 0090-2) message] The sy stem which generated this result transmitted reference range : 4.20 - 10.70 10*3/?L. The reference range was not used to interpret this result as normal/abnormal . RBC (test code = See_Comment L [Automated 519-8) message] The sy stem which generated this result transmitted reference range : 4.26 - 5.52 10*6/?L. The reference range was not used to interpret this result as normal/abnormal . HGB (test code = 11.5 g/dL 12.2-16.4 L 718-7) HCT (test code = 34.8 % 38.4-49.3 L 4544-3) MCV (test code = 111.9 fL 81.7-95.6 H 787-2) MCH (test code = 37.0 pg 26.1-32.7 H 785-6) MCHC (test code = 33.0 g/dL 31.2-35 786-4) RDW-SD (test code = 60.7 fL 38.5-51.6 H 91831-7) RDW-CV (test code = 14.6 % 12.1-15.4 788-0) PLT (test code = See_Comment [Automated 777-3) message] The sy stem which generated this result transmitted reference range : 150 - 328 10*3/ ?L. The reference r kevin was not used to interpret this result as normal/abnormal . MPV (test code = 11.0 fL 9.8-13 82286-0) NRBC/100 WBC (test See_Comment [Automat ed code = 2494456946) message] The system which generated this result transmitted reference range : 0.0 - 10.0 /100 WBCs. The refer ence range was not u sed to interpret th is result as normal/abnormal . NRBC x10^3 (test code <0.01 See_Comment [Auto mated = 2259697718) message] The s ystem which generated this result transmitted reference range : 10*3/?L. The reference range was not used to interpret this result as normal/abnormal . GRAN MAT (NEUT) % 73.0 % (test code = 770-8) IMM GRAN % (test code 1.90 % = 2612331044) LYMPH % (test code = 8.1 % 736-9) MONO % (test code = 13.8 % 5905-5) EOS % (test code = 1.9 % 713-8) BASO % (test code = 1.3 % 706-2) GRAN MAT x10^3(ANC) 4.50 10*3/uL 1.99-6.95 (test code = 7681265297) IMM GRAN x10^3 (test 0.12 10*3/uL 0-0.06 H code = 4702172565) LYMPH x10^3 (test code 0.50 10*3/uL 1.09-3.23 L = 731-0) MONO x10^3 (test code 0.85 10*3/uL 0.36-1.02 = 742-7) EOS x10^3 (test code = 0.12 10*3/uL 0.06-0.53 711-2) BASO x10^3 (test code 0.08 10*3/uL 0.01-0.09 = 704-7) Lab Interpretation Abnormal (test code = 24242-2) [facility]OSTR[facility]UM DIFFICILE [id number] 07:17:00 Test Item Value Reference Range Interpretation Comments Clostridioides (Clostridium) Negative Negative difficile (test code = 07101-5) Lab Interpretation (test code = Normal 34352-7) [facility] with [id number] 13:20:00 Test Item Value Reference Range Interpretation Comments WBC (test code = See_Comment [Automated 6690-2) message] The sy stem which generated this result transmitted reference range : 4.20 - 10.70 10*3/?L. The reference range was not used to interpret this result as normal/abnormal . RBC (test code = See_Comment L [Automated 789-8) message] The sy stem which generated this result transmitted reference range : 4.26 - 5.52 10*6/?L. The reference range was not used to interpret this result as normal/abnormal . HGB (test code = 12.8 g/dL 12.2-16.4 718-7) HCT (test code = 38.6 % 38.4-49.3 4544-3) MCV (test code = 114.2 fL 81.7-95.6 H 787-2) MCH (test code = 37.9 pg 26.1-32.7 H 785-6) MCHC (test code = 33.2 g/dL 31.2-35 786-4) RDW-SD (test code = 62.7 fL 38.5-51.6 H 26500-4) RDW-CV (test code = 14.8 % 12.1-15.4 788-0) PLT (test code = See_Comment [Automated 777-3) message] The sy stem which generated this result transmitted reference range : 150 - 328 10*3/ ?L. The reference r kevin was not used to interpret this result as normal/abnormal . MPV (test code = 10.9 fL 9.8-13 27258-3) NRBC/100 WBC (test See_Comment [Automat ed code = 5055568686) message] The system which generated this result transmitted reference range : 0.0 - 10.0 /100 WBCs. The refer ence range was not u sed to interpret th is result as normal/abnormal . NRBC x10^3 (test code <0.01 See_Comment [Auto mated = 9082842840) message] The s ystem which generated this result transmitted reference range : 10*3/?L. The reference range was not used to interpret this result as normal/abnormal . GRAN MAT (NEUT) % 69.9 % (test code = 770-8) IMM GRAN % (test code 2.70 % = 9057132471) LYMPH % (test code = 9.4 % 736-9) MONO % (test code = 13.9 % 5905-5) EOS % (test code = 2.7 % 713-8) BASO % (test code = 1.4 % 706-2) GRAN MAT x10^3(ANC) 4.07 10*3/uL 1.99-6.95 (test code = 8285518440) IMM GRAN x10^3 (test 0.16 10*3/uL 0-0.06 H code = 0513276120) LYMPH x10^3 (test code 0.55 10*3/uL 1.09-3.23 L = 731-0) MONO x10^3 (test code 0.81 10*3/uL 0.36-1.02 = 742-7) EOS x10^3 (test code = 0.16 10*3/uL 0.06-0.53 711-2) BASO x10^3 (test code 0.08 10*3/uL 0.01-0.09 = 704-7) Lab Interpretation Abnormal (test code = 05197-3) [facility] (NA, K, CL, CO2, GLUCOSE, BUN, CREATININE, CA)2020-01-17 12:37:00 Test Item Value Reference Range Interpretation Comments NA (test code = 136 mmol/L 135-145 1525669713) K (test code = 3.8 mmol/L 3.5-5 8559998024) CL (test code = 104 mmol/L 98-108 9461265384) CO2 TOTAL (test code = 24 mmol/L 23-31 2853246038) AGAP (test code = 2-16 3518313117) BUN (test code = 4 mg/dL 7-23 L 4251418955) GLUCOSE (test code = 71 mg/dL 70-110 4974650948) CREATININE (test code = 0.59 mg/dL 0.6-1.25 L 3185784121) CALCIUM (test code = 8.6 mg/dL 8.6-10.6 8124019097) eGFR Calculation mL/min/1.73m2 (Non-) (test code = 6466649667) eGFR Calculation mL/min/1.73m2 () (test code = 7229710018) BERYL (test code = BERYL) Association of Glomerular Filtration Rate (GFR) and Staging of Kidney Disease* + --+ --+ ------+| GFR (mL/min/1.73 m2) ?| With Kidney Damage ?| ?Without Kidney Damage+ --------+ --------+ +| ?>90 ?| ?Stage one ?| ? Normal ?+ ---+ ---+ -------+| ?60-89 ?| ?Stage two ?| ? Decreased GFR ? + --+ --+ ------+| ?30-59 ?| ?Stage three ?| ? Stage three ? + --+ --+ ------+| ?15-29 ?| ?Stage four ? | ? Stage four ?+ ---+ ---+ -------+| ?<15 (or dialysis) ? ?| ?Stage five ? | ? Stage five ?+ ---+ ---+ -------+ *Each stage assumes the associated GFR level has been in effect for at least three months. ?Stages 1 to 5, with or without kidney disease, indicate chronic kidney disease. Notes: Determination of stages one and two (with eGFR >59mL/min/1.73 m2) requires estimation of kidney damage for at least three months as defined by structural or functional abnormalities of the kidney, manifested by either:Pathological abnormalities or Markers of kidney damage (including abnormalities in the composition of the blood or urine or abnormalities in imaging tests). Lab Interpretation Abnormal (test code = 94787-5) [facility] 12:36:00 Test Item Value Reference Range Interpretation Comments LIPASE (test code = 0282101022) 385 U/L 0-220 H Lab Interpretation (test code = Abnormal 13531-2) [facility]2020-10-17 11:56:00 Test Item Value Reference Range Interpretation Comments LIPASE (test code = 1767618962) 685 U/L 0-220 H Lab Interpretation (test code = Abnormal 22161-0) [facility]OVID[facility] (ID NOW RAPID TESTING)2020-01-16 06:59:00 Test Item Value Reference Range Interpretation Comments SARS-CoV-2 Rapid ID NOW Not Detected Not Detected (test code = 50786-1) BERYL (test code = BERYL) ID NOW COVID-19 Assay is an isothermal nucleic acid amplification test intended for the qualitative detection of nucleic acid from SARS-CoV-2 viral RNA in nasopharyngeal ([employer]) specimens. It is used under Emergency Use Authorization (EUA) by FDA. The limit of detection (LOD) of the assay is 125 Genome Equivalents/mL. A positive result is indicative of the presence of SARS-CoV-2 RNA. ?Clinical correlation with patient history and other diagnostic information is necessary to determine patient infection status. A negative (Not Detected) result does not preclude SARS-CoV-2 infection. In patients with clinical symptoms and other tests that are consistent with SARS-CoV-2 infection, negative results should be treated as presumptive negative and a new specimen should be tested with alternative PCR molecular test. Invalid: Please collect a new specimen for repeat patient testing if clinically indicated. Lab Interpretation Normal (test code = 72320-0) [facility]vineUrinalysis2020-10-17 06:56:00 Test Item Value Reference Range Interpretation Comments APPEARANCE (test code = Clear Clear 5342831803) COLOR (test code = Yellow Yellow 6730675379) PH (test code = 4.8-8.0 2024020474) SP GRAVITY (test code = 1.003-1.030 3206594851) GLU U QUAL (test code = Normal Normal 5886785669) BLOOD (test code = Negative Negative 7992829112) KETONES (test code = Negative Negative 3266593632) PROTEIN (test code = Negative Negative 2887-8) UROBILIN (test code = Normal Normal 2762414353) BILIRUBIN (test code = Negative Negative 2170074743) NITRITE (test code = Negative Negative 2882695324) LEUK CAMMIE (test code = Negative Negative 2731874178) RBC/HPF (test code = See_Comment [Autom ated message] 6028681083) The system [employer] generated this result transmitted ref erence range: 0 - 3 HP F. The reference range was not used to int erpret this result as normal/abnormal . WBC/HPF (test code = See_Comment [Autom ated message] 9016597880) The system [employer] generated this result transmitted ref erence range: 0 - 5 HP F. The reference range was not used to int erpret this result as normal/abnormal . BACTERIA (test code = Few Negative A 8305901575) MUCOUS (test code = Marked Negative LPF A 2962363417) SQ EPITH (test code = <1 HPF 9513658582) HYAL CAST (test code = See_Comment H [Aut omated message] 1710654875) The system [employer] generated this result transmitted ref erence range: <=2 LPF. The reference range was not used to int erpret this result as normal/abnormal . Lab Interpretation (test Abnormal code = 47755-0) [facility]ANOL2020-10-17 06:47:00 Test Item Value Reference Range Interpretation Comments ALCOHOL (test code = <10 mg/dL 7954780427) BERYL (test code = BERYL) <10 Bwcunias69-228 Toxic>100 Depression of [employer]>400 Fatalities Reported [facility]vineTroponin [id number] 06:16:00 Test Item Value Reference Range Interpretation Comments TROPONIN I (test 0.020 ng/mL See_Comment [Automated code = 1698329148) message] The system which generated this result transmitted reference range : <=0.034. The reference range was not used to interpret this result as normal/abnormal . BERYL (test code = Equal or Less than BERYL) 0.034 ng/ml---Normal ?Note: Cardiac troponin begins to rise 3-4 hours after the onset of ischemia. Repeat in 4-6 hours if the sample was drawn within 3-4 hours of the onset of the symptom and found normal. Between 0.035 and 0.120 ng/mL--- Borderline. Questionable myocardial injury or necrosis ? ?Note: Serial measurement may be necessary to confirm or exclude the diagnosis of myocardial injury or necrosis; Clinical correlation (symptoms, EKGs, imaging studies, and others) required; Repeat in 4-6 hours if clinically indicated. ? Equal or Higher than 0.121 ng/mL---Abnormal. Myocardial Injury or Necrosis Likely ? Biotin has been reported to cause a negative bias, interpret results relative to patient's use of biotin. ? Lab Interpretation Normal (test code = 74760-8) [facility] (NA, K, CL, CO2, GLUCOSE, BUN, CREATININE, CA)2020-01-16 06:04:00 Test Item Value Reference Range Interpretation Comments NA (test code = 137 mmol/L 135-145 5844985669) K (test code = 3.7 mmol/L 3.5-5 4219178439) CL (test code = 104 mmol/L 98-108 2746621352) CO2 TOTAL (test code = 28 mmol/L 23-31 3208941090) AGAP (test code = 2-16 9647153548) BUN (test code = 8 mg/dL 7-23 3021503874) GLUCOSE (test code = 114 mg/dL 70-110 H 3059765551) CREATININE (test code = 0.72 mg/dL 0.6-1.25 4484894150) CALCIUM (test code = 9.2 mg/dL 8.6-10.6 1748593537) eGFR Calculation mL/min/1.73m2 (Non-) (test code = 6706889164) eGFR Calculation mL/min/1.73m2 () (test code = 4405627845) BERYL (test code = BERYL) Association of Glomerular Filtration Rate (GFR) and Staging of Kidney Disease* + --+ --+ ------+| GFR (mL/min/1.73 m2) ?| With Kidney Damage ?| ?Without Kidney Damage+ --------+ --------+ +| ?>90 ?| ?Stage one ?| ? Normal ?+ ---+ ---+ -------+| ?60-89 ?| ?Stage two ?| ? Decreased GFR ? + --+ --+ ------+| ?30-59 ?| ?Stage three ?| ? Stage three ? + --+ --+ ------+| ?15-29 ?| ?Stage four ? | ? Stage four ?+ ---+ ---+ -------+| ?<15 (or dialysis) ? ?| ?Stage five ? | ? Stage five ?+ ---+ ---+ -------+ *Each stage assumes the associated GFR level has been in effect for at least three months. ?Stages 1 to 5, with or without kidney disease, indicate chronic kidney disease. Notes: Determination of stages one and two (with eGFR >59mL/min/1.73 m2) requires estimation of kidney damage for at least three months as defined by structural or functional abnormalities of the kidney, manifested by either:Pathological abnormalities or Markers of kidney damage (including abnormalities in the composition of the blood or urine or abnormalities in imaging tests). Lab Interpretation Abnormal (test code = 74143-5) [facility] Function [facility] (ALB, T.PRO, BILI T, BU/BC, ALT, AST, ALK PHOS)2020-01-16 06:04:00 Test Item Value Reference Range Interpretation Comments TOTAL BILI (test code = 7069495582) 0.6 mg/dL 0.1-1.1 BILI UNCON (test code = 7673080023) 0.3 mg/dL 0.1-1.1 BILI CONJ (test code = 9794792972) 0.0 mg/dL 0-0.3 T PROTEIN (test code = 6485050182) 6.0 g/dL 6.3-8.2 L ALBUMIN (test code = 6687653479) 3.4 g/dL 3.5-5 L ALK PHOS (test code = 5478287476) 143 U/L 34-122 H ALTv (test code = 1742-6) 45 U/L 5-50 AST(SGOT) (test code = 8570154022) 82 U/L 13-40 H Lab Interpretation (test code = Abnormal 30722-0) [facility]vineLipase [id number] 06:04:00 Test Item Value Reference Range Interpretation Comments LIPASE (test code = 3842609495) 861 U/L 0-220 H Lab Interpretation (test code = Abnormal 65355-1) [facility] with Afxfyxxhtvtx7752-49-02 06:01:00 Test Item Value Reference Range Interpretation Comments WBC (test code = See_Comment [Automated 6690-2) message] The sy stem which generated this result transmitted reference range : 4.20 - 10.70 10*3/?L. The reference range was not used to interpret this result as normal/abnormal . RBC (test code = See_Comment L [Automated 789-8) message] The sy stem which generated this result transmitted reference range : 4.26 - 5.52 10*6/?L. The reference range was not used to interpret this result as normal/abnormal . HGB (test code = 13.0 g/dL 12.2-16.4 718-7) HCT (test code = 39.4 % 38.4-49.3 4544-3) MCV (test code = 112.6 fL 81.7-95.6 H 787-2) MCH (test code = 37.1 pg 26.1-32.7 H 785-6) MCHC (test code = 33.0 g/dL 31.2-35 786-4) RDW-SD (test code = 62.4 fL 38.5-51.6 H 46055-5) RDW-CV (test code = 14.8 % 12.1-15.4 788-0) PLT (test code = See_Comment [Automated 777-3) message] The sy stem which generated this result transmitted reference range : 150 - 328 10*3/ ?L. The reference r kevin was not used to interpret this result as normal/abnormal . MPV (test code = 10.7 fL 9.8-13 50547-0) NRBC/100 WBC (test See_Comment [Automat ed code = 7553899763) message] The system which generated this result transmitted reference range : 0.0 - 10.0 /100 WBCs. The refer ence range was not u sed to interpret th is result as normal/abnormal . NRBC x10^3 (test code <0.01 See_Comment [Auto mated = 0130754568) message] The s ystem which generated this result transmitted reference range : 10*3/?L. The reference range was not used to interpret this result as normal/abnormal . GRAN MAT (NEUT) % 72.6 % (test code = 770-8) IMM GRAN % (test code 2.30 % = 2503666952) LYMPH % (test code = 7.5 % 736-9) MONO % (test code = 15.2 % 5905-5) EOS % (test code = 1.5 % 713-8) BASO % (test code = 0.9 % 706-2) GRAN MAT x10^3(ANC) 5.41 10*3/uL 1.99-6.95 (test code = 3099593789) IMM GRAN x10^3 (test 0.17 10*3/uL 0-0.06 H code = 1870707830) LYMPH x10^3 (test code 0.56 10*3/uL 1.09-3.23 L = 731-0) MONO x10^3 (test code 1.13 10*3/uL 0.36-1.02 H = 742-7) EOS x10^3 (test code = 0.11 10*3/uL 0.06-0.53 711-2) BASO x10^3 (test code 0.07 10*3/uL 0.01-0.09 = 704-7) Lab Interpretation Abnormal (test code = 94348-9) [facility]vineFECAL [id number] 18:25:00 Test Item Value Reference Range Interpretation Comments Fecal Leukocytes (test code = Negative Negative 7347251781) Lab Interpretation (test code = Normal 05770-0) [facility]vinePHOSPHORUS2020-10-12 13:23:00 Test Item Value Reference Range Interpretation Comments PHOSPHORUS (test code = 3336213914) 1.5 mg/dL 2.5-5 L Lab Interpretation (test code = Abnormal 26366-5) [facility] METABOLIC PANEL (NA, K, CL, CO2, GLUCOSE, BUN, CREATININE, CA)2020-01-11 10:58:00 Test Item Value Reference Range Interpretation Comments NA (test code = 136 mmol/L 135-145 7752698126) K (test code = 4.2 mmol/L 3.5-5 0941148565) CL (test code = 101 mmol/L 98-108 6484971135) CO2 TOTAL (test code = 30 mmol/L 23-31 2557237140) AGAP (test code = 2-16 2067886270) BUN (test code = <2 7-23 L 3762421972) GLUCOSE (test code = 110 mg/dL 70-110 0307034760) CREATININE (test code = 0.50 mg/dL 0.6-1.25 L 7759433547) CALCIUM (test code = 8.9 mg/dL 8.6-10.6 2223649898) eGFR Calculation mL/min/1.73m2 (Non-) (test code = 3180562886) eGFR Calculation mL/min/1.73m2 () (test code = 7389752380) BERYL (test code = BERYL) Association of Glomerular Filtration Rate (GFR) and Staging of Kidney Disease* + --+ --+ ------+| GFR (mL/min/1.73 m2) ?| With Kidney Damage ?| ?Without Kidney Damage+ --------+ --------+ +| ?>90 ?| ?Stage one ?| ? Normal ?+ ---+ ---+ -------+| ?60-89 ?| ?Stage two ?| ? Decreased GFR ? + --+ --+ ------+| ?30-59 ?| ?Stage three ?| ? Stage three ? + --+ --+ ------+| ?15-29 ?| ?Stage four ? | ? Stage four ?+ ---+ ---+ -------+| ?<15 (or dialysis) ? ?| ?Stage five ? | ? Stage five ?+ ---+ ---+ -------+ *Each stage assumes the associated GFR level has been in effect for at least three months. ?Stages 1 to 5, with or without kidney disease, indicate chronic kidney disease. Notes: Determination of stages one and two (with eGFR >59mL/min/1.73 m2) requires estimation of kidney damage for at least three months as defined by structural or functional abnormalities of the kidney, manifested by either:Pathological abnormalities or Markers of kidney damage (including abnormalities in the composition of the blood or urine or abnormalities in imaging tests). Lab Interpretation Abnormal (test code = 88261-1) [facility]2020-10-12 10:55:00 Test Item Value Reference Range Interpretation Comments MAGNESIUM (test code = 8832304605) 2.0 mg/dL 1.7-2.4 Lab Interpretation (test code = Normal 85529-0) [facility]vineALDOSTERONE, [id number] 05:11:00 Test Item Value Reference Range Interpretation Comments ALDOST (test code = 6.9 ng/dL INTERPRE TIVE INFORMATION: 1763-2) Aldosterone, Se rum Reference inter vals for age 15 and olde r: Upright ......... ?4.0 - 31.0 ng/dL Supine .. ........ ?Less than or e qual to 16.0 ng/dL Unsp ecified ..... ?Less herminio n or equal to 31.0 ng/dL N ormal serum levels of aldosterone are dependent on the sodium i ntake and whether the pat ient is upright or supi ne. High sodium intake w ill tend to suppress ser um aldosterone, wh ereas low sodium intake w ill elevate serum aldosterone. Th e reference inter vals for serum aldostero ne are based on normal sodium intake. Access complete set of age- and /or gender-specific reference intervals for t his test in the [email or web address] Lab oratory Test Directory ([employer]).P erformed By: MAGALIS [address] [place] [id number] aboratory Director: Bisi Moy MD [facility]. METABOLIC PANEL (28252)2020-01-10 11:39:00 Test Item Value Reference Range Interpretation Comments NA (test code = 137 mmol/L 135-145 5259789035) K (test code = 3.5 mmol/L 3.5-5 7700783004) CL (test code = 102 mmol/L 98-108 2684793487) CO2 TOTAL (test code = 28 mmol/L 23-31 3663267751) AGAP (test code = 2-16 3599983785) BUN (test code = <2 7-23 L 1710751954) GLUCOSE (test code = 140 mg/dL 70-110 H 9503189421) CREATININE (test code = 0.40 mg/dL 0.6-1.25 L 5592338328) TOTAL BILI (test code = 0.8 mg/dL 0.1-1.3 9636871147) CALCIUM (test code = 8.7 mg/dL 8.6-10.6 8155294197) T PROTEIN (test code = 5.3 g/dL 6.3-8.2 L 5923688889) ALBUMIN (test code = 2.7 g/dL 3.5-5 L 4084181787) ALK PHOS (test code = 174 U/L 34-122 H 3956535737) ALTv (test code = 46 U/L 5-50 1742-6) AST(SGOT) (test code = 115 U/L 13-40 H 6706278693) eGFR Calculation mL/min/1.73m2 (Non-) (test code = 3806277500) eGFR Calculation mL/min/1.73m2 () (test code = 2825180988) BERYL (test code = BERYL) Association of Glomerular Filtration Rate (GFR) and Staging of Kidney Disease* + --+ --+ ------+| GFR (mL/min/1.73 m2) ?| With Kidney Damage ?| ?Without Kidney Damage+ --------+ --------+ +| ?>90 ?| ?Stage one ?| ? Normal ?+ ---+ ---+ -------+| ?60-89 ?| ?Stage two ?| ? Decreased GFR ? + --+ --+ ------+| ?30-59 ?| ?Stage three ?| ? Stage three ? + --+ --+ ------+| ?15-29 ?| ?Stage four ? | ? Stage four ?+ ---+ ---+ -------+| ?<15 (or dialysis) ? ?| ?Stage five ? | ? Stage five ?+ ---+ ---+ -------+ *Each stage assumes the associated GFR level has been in effect for at least three months. ?Stages 1 to 5, with or without kidney disease, indicate chronic kidney disease. Notes: Determination of stages one and two (with eGFR >59mL/min/1.73 m2) requires estimation of kidney damage for at least three months as defined by structural or functional abnormalities of the kidney, manifested by either:Pathological abnormalities or Markers of kidney damage (including abnormalities in the composition of the blood or urine or abnormalities in imaging tests). Lab Interpretation Abnormal (test code = 24157-5) [facility]IP[facility]2020-10-11 11:30:00 Test Item Value Reference Range Interpretation Comments LIPASE (test code = 8161162968) 258 U/L 0-220 H Lab Interpretation (test code = Abnormal 78866-7) [facility]2020-10-11 11:30:00 Test Item Value Reference Range Interpretation Comments MAGNESIUM (test code = 2692856587) 1.9 mg/dL 1.7-2.4 Lab Interpretation (test code = Normal 92664-3) [facility]2020-10-10 17:49:00 Test Item Value Reference Range Interpretation Comments LIPASE (test code = 9865115718) 654 U/L 0-220 H Lab Interpretation (test code = Abnormal 81627-6) [facility] (NA, K, CL, CO2, GLUCOSE, BUN, CREATININE, CA)2020-01-09 12:02:00 Test Item Value Reference Range Interpretation Comments NA (test code = 135 mmol/L 135-145 5884269956) K (test code = 2.9 mmol/L 3.5-5 LL 0460838443) CL (test code = 99 mmol/L 98-108 2160665028) CO2 TOTAL (test code = 33 mmol/L 23-31 H 6750748384) AGAP (test code = 2-16 1950645238) BUN (test code = <2 7-23 L 3655790316) GLUCOSE (test code = 170 mg/dL 70-110 H 3455149263) CREATININE (test code = 0.46 mg/dL 0.6-1.25 L 9812634028) CALCIUM (test code = 8.1 mg/dL 8.6-10.6 L 7050489324) eGFR Calculation mL/min/1.73m2 (Non-) (test code = 5190062726) eGFR Calculation mL/min/1.73m2 () (test code = 2496632811) BERYL (test code = BERYL) Association of Glomerular Filtration Rate (GFR) and Staging of Kidney Disease* + --+ --+ ------+| GFR (mL/min/1.73 m2) ?| With Kidney Damage ?| ?Without Kidney Damage+ --------+ --------+ +| ?>90 ?| ?Stage one ?| ? Normal ?+ ---+ ---+ -------+| ?60-89 ?| ?Stage two ?| ? Decreased GFR ? + --+ --+ ------+| ?30-59 ?| ?Stage three ?| ? Stage three ? + --+ --+ ------+| ?15-29 ?| ?Stage four ? | ? Stage four ?+ ---+ ---+ -------+| ?<15 (or dialysis) ? ?| ?Stage five ? | ? Stage five ?+ ---+ ---+ -------+ *Each stage assumes the associated GFR level has been in effect for at least three months. ?Stages 1 to 5, with or without kidney disease, indicate chronic kidney disease. Notes: Determination of stages one and two (with eGFR >59mL/min/1.73 m2) requires estimation of kidney damage for at least three months as defined by structural or functional abnormalities of the kidney, manifested by either:Pathological abnormalities or Markers of kidney damage (including abnormalities in the composition of the blood or urine or abnormalities in imaging tests). Lab Interpretation Abnormal (test code = 02427-2) [facility] 12:00:00 Test Item Value Reference Range Interpretation Comments MAGNESIUM (test code = 9244247293) 2.0 mg/dL 1.7-2.4 Lab Interpretation (test code = Normal 37119-2) [facility] DIFFICILE [id number] 01:24:00 Test Item Value Reference Range Interpretation Comments Clostridioides (Clostridium) Negative Negative difficile (test code = 37022-6) Lab Interpretation (test code = Normal 92012-7) [facility] WITH [id number] 11:36:00 Test Item Value Reference Range Interpretation Comments WBC (test code = See_Comment [Automated 6690-2) message] The sy stem which generated this result transmitted reference range : 4.20 - 10.70 10*3/?L. The reference range was not used to interpret this result as normal/abnormal . RBC (test code = See_Comment L [Automated 789-8) message] The sy stem which generated this result transmitted reference range : 4.26 - 5.52 10*6/?L. The reference range was not used to interpret this result as normal/abnormal . HGB (test code = 11.3 g/dL 12.2-16.4 L 718-7) HCT (test code = 31.9 % 38.4-49.3 L 4544-3) MCV (test code = 111.9 fL 81.7-95.6 H 787-2) MCH (test code = 39.6 pg 26.1-32.7 H 785-6) MCHC (test code = 35.4 g/dL 31.2-35 H 786-4) RDW-SD (test code = 59.7 fL 38.5-51.6 H 35482-1) RDW-CV (test code = 14.6 % 12.1-15.4 788-0) PLT (test code = See_Comment L [Automated 777-3) message] The sy stem which generated this result transmitted reference range : 150 - 328 10*3/ ?L. The reference r kevin was not used to interpret this result as normal/abnormal . MPV (test code = 9.8 fL 9.8-13 05951-7) NRBC/100 WBC (test See_Comment [Automat ed code = 2225789907) message] The system which generated this result transmitted reference range : 0.0 - 10.0 /100 WBCs. The refer ence range was not u sed to interpret th is result as normal/abnormal . NRBC x10^3 (test code See_Comment [Auto mated = 3219083071) message] The s ystem which generated this result transmitted reference range : 10*3/?L. The reference range was not used to interpret this result as normal/abnormal . GRAN MAT (NEUT) % 72.2 % (test code = 770-8) IMM GRAN % (test code 5.00 % = 0209577622) LYMPH % (test code = 8.2 % 736-9) MONO % (test code = 11.2 % 5905-5) EOS % (test code = 2.6 % 713-8) BASO % (test code = 0.8 % 706-2) GRAN MAT x10^3(ANC) 3.61 10*3/uL 1.99-6.95 (test code = 5070597145) IMM GRAN x10^3 (test 0.25 10*3/uL 0-0.06 H code = 8146037337) LYMPH x10^3 (test code 0.41 10*3/uL 1.09-3.23 L = 731-0) MONO x10^3 (test code 0.56 10*3/uL 0.36-1.02 = 742-7) EOS x10^3 (test code = 0.13 10*3/uL 0.06-0.53 711-2) BASO x10^3 (test code 0.04 10*3/uL 0.01-0.09 = 704-7) BANDS (test code = Increased A 7518760214) TOXIC CHANGES (test Present A code = 803-7) Lab Interpretation Abnormal (test code = 21700-6) [facility]OLIC PANEL (05095)2020-01-08 10:51:00 Test Item Value Reference Range Interpretation Comments NA (test code = 135 mmol/L 135-145 1927799155) K (test code = 2.7 mmol/L 3.5-5 LL 0705296243) CL (test code = 97 mmol/L 98-108 L 7519376445) CO2 TOTAL (test code = 32 mmol/L 23-31 H 4046841021) AGAP (test code = 2-16 2630532472) BUN (test code = <2 7-23 L 0495832376) GLUCOSE (test code = 114 mg/dL 70-110 H 4064432016) CREATININE (test code = 0.45 mg/dL 0.6-1.25 L 7427376824) TOTAL BILI (test code = 1.4 mg/dL 0.1-1.1 H 8142001735) CALCIUM (test code = 8.6 mg/dL 8.6-10.6 0485937832) T PROTEIN (test code = 5.2 g/dL 6.3-8.2 L 6154420018) ALBUMIN (test code = 2.7 g/dL 3.5-5 L 5011196202) ALK PHOS (test code = 176 U/L 34-122 H 4972173395) ALTv (test code = 51 U/L 5-50 H 1742-6) AST(SGOT) (test code = 126 U/L 13-40 H 4289925077) eGFR Calculation mL/min/1.73m2 (Non-) (test code = 1775933502) eGFR Calculation mL/min/1.73m2 () (test code = 9748291500) BERYL (test code = BERYL) Association of Glomerular Filtration Rate (GFR) and Staging of Kidney Disease* + --+ --+ ------+| GFR (mL/min/1.73 m2) ?| With Kidney Damage ?| ?Without Kidney Damage+ --------+ --------+ +| ?>90 ?| ?Stage one ?| ? Normal ?+ ---+ ---+ -------+| ?60-89 ?| ?Stage two ?| ? Decreased GFR ? + --+ --+ ------+| ?30-59 ?| ?Stage three ?| ? Stage three ? + --+ --+ ------+| ?15-29 ?| ?Stage four ? | ? Stage four ?+ ---+ ---+ -------+| ?<15 (or dialysis) ? ?| ?Stage five ? | ? Stage five ?+ ---+ ---+ -------+ *Each stage assumes the associated GFR level has been in effect for at least three months. ?Stages 1 to 5, with or without kidney disease, indicate chronic kidney disease. Notes: Determination of stages one and two (with eGFR >59mL/min/1.73 m2) requires estimation of kidney damage for at least three months as defined by structural or functional abnormalities of the kidney, manifested by either:Pathological abnormalities or Markers of kidney damage (including abnormalities in the composition of the blood or urine or abnormalities in imaging tests). Lab Interpretation Abnormal (test code = 15890-3) [facility] Test Item Value Reference Range Interpretation Comments MAGNESIUM (test code = 8206111355) 1.5 mg/dL 1.7-2.4 L Lab Interpretation (test code = Abnormal 10810-4) [facility]2020-10-09 10:48:00 Test Item Value Reference Range Interpretation Comments LIPASE (test code = 6830276073) 605 U/L 0-220 H Lab Interpretation (test code = Abnormal 37062-5) [facility] D, [id number] 22:43:00 Test Item Value Reference Range Interpretation Comments VIT D 25OH (test code = 28 ng/mL 25-80 86714-9) BERYL (test code = BERYL) Deficiency: <20 ng/mLInsufficiency : 20-24 ng/mLOptimal: 25-80 ng/mL Lab Interpretation (test Normal code = 54034-4) [facility]ORTISOL [id number] 21:28:00 Test Item Value Reference Range Interpretation Comments VIC AM (test code = 13.2 ug/dL 4.5-23 8883298319) BERYL (test code = BERYL) Biotin has been reported to cause a positive bias, interpret results relative to patient's use of biotin. Lab Interpretation (test Normal code = 01109-9) [facility] B12, [id number] 21:09:00 Test Item Value Reference Range Interpretation Comments VIT B12 (test code = 959 pg/mL 240-930 H 4803135769) BERYL (test code = BERYL) Biotin has been reported to cause a positive bias, interpret results relative to patient's use of biotin. Lab Interpretation (test Abnormal code = 47943-2) [facility]OL[facility]2020-10-08 21:09:00 Test Item Value Reference Range Interpretation Comments FOLATE SER (test code = 3.3 ng/mL 3-20 Biot in has been 4336914496) reported to cau se a positive bias, interpret resul ts relative to patient's use o f biotin. Lab Interpretation (test Normal code = 84797-0) [facility]vineTHYROID STIMULATING [id number] 14:27:00 Test Item Value Reference Range Interpretation Comments TSH (test code = See_Comment H Biotin has been 6577047393) reported to cau se a negative bias, interpret resul ts relative to pat ient's use of biotin. [Automated mess age] The system [employer] generated this result transmitted ref erence range: 0.45 - 4 .70 mIU/L. The refe rence range was not u sed to interpret this result as normal/abnor mal. Lab Interpretation (test Abnormal code = 08641-6) [facility]vineIRON [id number] 14:26:00 Test Item Value Reference Range Interpretation Comments IRON (test code = 1947947884) 121 ug/dL 50-160 TIBC (test code = 7431538229) 231 ug/dL 250-410 L % FE SAT (test code = 7987421367) 52 % 20-50 H Lab Interpretation (test code = Abnormal 94788-4) [facility]2020-10-08 12:57:00 Test Item Value Reference Range Interpretation Comments LIPASE (test code = 3180351091) 545 U/L 0-220 H Lab Interpretation (test code = Abnormal 64049-3) [facility]vineHEPAT[facility] FUNCTION PANEL (61476) (ALB,T.PRO,BILI T,BU/BC,ALT,AST,ALK PHOS)2020-01-07 12:57:00 Test Item Value Reference Range Interpretation Comments TOTAL BILI (test code = 5188900447) 1.5 mg/dL 0.1-1.1 H BILI UNCON (test code = 3562604069) 0.8 mg/dL 0.1-1.1 BILI CONJ (test code = 3588204322) 0.0 mg/dL 0-0.3 T PROTEIN (test code = 6720308719) 5.3 g/dL 6.3-8.2 L ALBUMIN (test code = 5653895766) 2.8 g/dL 3.5-5 L ALK PHOS (test code = 8321316288) 198 U/L 34-122 H ALTv (test code = 1742-6) 54 U/L 5-50 H AST(SGOT) (test code = 2474519849) 145 U/L 13-40 H Lab Interpretation (test code = Abnormal 55661-3) [facility] MET[facility]OLIC PANEL (NA, K, CL, CO2, GLUCOSE, BUN, CREATININE, CA)2020-01-07 12:09:00 Test Item Value Reference Range Interpretation Comments NA (test code = 134 mmol/L 135-145 L 7231564935) K (test code = 2.7 mmol/L 3.5-5 LL 9790605419) CL (test code = 96 mmol/L 98-108 L 0903290141) CO2 TOTAL (test code = 30 mmol/L 23-31 4773966425) AGAP (test code = 2-16 2862460149) BUN (test code = <2 7-23 L 5849120074) GLUCOSE (test code = 116 mg/dL 70-110 H 2646249306) CREATININE (test code = 0.47 mg/dL 0.6-1.25 L 0931145674) CALCIUM (test code = 9.0 mg/dL 8.6-10.6 3380366105) eGFR Calculation mL/min/1.73m2 (Non-) (test code = 1172529048) eGFR Calculation mL/min/1.73m2 () (test code = 0087730116) BERYL (test code = EBRYL) Association of Glomerular Filtration Rate (GFR) and Staging of Kidney Disease* + --+ --+ ------+| GFR (mL/min/1.73 m2) ?| With Kidney Damage ?| ?Without Kidney Damage+ --------+ --------+ +| ?>90 ?| ?Stage one ?| ? Normal ?+ ---+ ---+ -------+| ?60-89 ?| ?Stage two ?| ? Decreased GFR ? + --+ --+ ------+| ?30-59 ?| ?Stage three ?| ? Stage three ? + --+ --+ ------+| ?15-29 ?| ?Stage four ? | ? Stage four ?+ ---+ ---+ -------+| ?<15 (or dialysis) ? ?| ?Stage five ? | ? Stage five ?+ ---+ ---+ -------+ *Each stage assumes the associated GFR level has been in effect for at least three months. ?Stages 1 to 5, with or without kidney disease, indicate chronic kidney disease. Notes: Determination of stages one and two (with eGFR >59mL/min/1.73 m2) requires estimation of kidney damage for at least three months as defined by structural or functional abnormalities of the kidney, manifested by either:Pathological abnormalities or Markers of kidney damage (including abnormalities in the composition of the blood or urine or abnormalities in imaging tests). Lab Interpretation Abnormal (test code = 16477-2) [facility]2020-10-08 12:07:00 Test Item Value Reference Range Interpretation Comments MAGNESIUM (test code = 2114171287) 1.8 mg/dL 1.7-2.4 Lab Interpretation (test code = Normal 86192-0) [facility]vineCB WITHOUT [id number] 11:45:00 Test Item Value Reference Range Interpretation Comments WBC (test code = 6690-2) See_Comment [A utomated message] The system [employer]umi[employer] generated this result transmit meng reference range : 4.20 - 10.70 10*3/?L. The reference range was not used to interpret this result as normal/abnormal . RBC (test code = 789-8) See_Comment L [Au tomated message] The system [employer] generated this result transmit meng reference range : 4.26 - 5.52 10* 6/?L. The reference r kevin was not used to interpret this result as normal/abnormal . HGB (test code = 718-7) 11.8 g/dL 12.2-16.4 L HCT (test code = 4544-3) 34.1 % 38.4-49.3 L MCH (test code = 785-6) 39.2 pg 26.1-32.7 H MCV (test code = 787-2) 113.3 fL 81.7-95.6 H MCHC (test code = 786-4) 34.6 g/dL 31.2-35 PLT (test code = 777-3) See_Comment [Au tomated message] The system [employer] generated this result transmit meng reference range : 150 - 328 10*3/?L. The reference range was not used to interpret this result as normal/abnormal . MPV (test code = 10.3 fL 9.8-13 77450-4) RDW-CV (test code = 14.5 % 12.1-15.4 788-0) RDW-SD (test code = 60.0 fL 38.5-51.6 H 82598-4) NRBC x10^3 (test code = See_Comment [Au tomated message] 6526599743) The system whic h generated this result transmit meng reference range : 10*3/?L. The reference range was not used to interpret this result as normal/abnormal . NRBC/100 WBC (test code See_Comment [Au tomated message] = 7887080104) The system [employer] generated this result transmit meng reference range : 0.0 - 10.0 /100 WBC s. The reference r kevin was not used to interpret this result as normal/abnormal . IPF % (test code = 8722269796) Lab Interpretation (test Abnormal code = 49944-1) [facility]2020-10-08 05:26:00 Test Item Value Reference Range Interpretation Comments MAGNESIUM (test code = 6095428061) 1.8 mg/dL 1.7-2.4 Lab Interpretation (test code = Normal 95826-6) [facility]vineNM HEPATOBILIARY W [id number] 00:10:20Normal hepatobiliary scintigraphy.EXAM DESCRIPTION: HEPATOBILIARY SCAN CLINICAL HISTORY: ?Right upper quadrant pain COMPARISON: None available. Correlation with 01/05/[address] TECHNIQUE: The patient received an intravenous injection of 9.9 mCi technetium 99mmebrofenin and sequential images of the abdomen were obtained in the leftanterior oblique projection for one hour. The patient subsequently received an intravenous injection of 1.8 mcg CCKand dynamic imaging continued for 30 minutes.FINDINGS: Gallbladder is visualized normally with filling noted at 10 minutes. There is normal biliary to bowel transit. Gallbladder ejection fraction was 41%. [facility], Radiant Results Inft User - 01/06/2020 7:24 PM CDTEXAM DESCRIPTION: HEPATOBILIARY SCANCLINICAL HISTORY: Right upper quadrant painCOMPARISON: None available. Correlation with 01/05/2020 ultrasound and CTTECHNIQUE:The patient received an intravenous injection of 9.9 mCi technetium 99mmebrofenin and sequential images of the abdomen were obtained in the leftanterior oblique projection for one hour.The patient subsequently received an intravenous injection of 1.8 mcg CCKand dynamic imaging continued for 30 minutes.FINDINGS:Gallbladder is visualized normally with filling noted at 10 minutes. There is normal biliary to bowel transit. Gallbladder ejection fraction was 41%. IMPRESSIONNormal hepatobiliary scintigraphy.[facility]OL[facility] PANEL (NA, K, CL, CO2, GLUCOSE, BUN, CREATININE, CA)2020-01-06 17:51:00 Test Item Value Reference Range Interpretation Comments NA (test code = 133 mmol/L 135-145 L 5188111010) K (test code = 3.0 mmol/L 3.5-5 L 3130124088) CL (test code = 97 mmol/L 98-108 L 6452170728) CO2 TOTAL (test code = 26 mmol/L 23-31 2912812632) AGAP (test code = 2-16 6992233729) BUN (test code = 3 mg/dL 7-23 L 1314150310) GLUCOSE (test code = 113 mg/dL 70-110 H 1527015273) CREATININE (test code = 0.53 mg/dL 0.6-1.25 L 2793625529) CALCIUM (test code = 8.6 mg/dL 8.6-10.6 5324634908) eGFR Calculation mL/min/1.73m2 (Non-) (test code = 5139883633) eGFR Calculation mL/min/1.73m2 () (test code = 9518955800) BERYL (test code = BERYL) Association of Glomerular Filtration Rate (GFR) and Staging of Kidney Disease* + --+ --+ ------+| GFR (mL/min/1.73 m2) ?| With Kidney Damage ?| ?Without Kidney Damage+ --------+ --------+ +| ?>90 ?| ?Stage one ?| ? Normal ?+ ---+ ---+ -------+| ?60-89 ?| ?Stage two ?| ? Decreased GFR ? + --+ --+ ------+| ?30-59 ?| ?Stage three ?| ? Stage three ? + --+ --+ ------+| ?15-29 ?| ?Stage four ? | ? Stage four ?+ ---+ ---+ -------+| ?<15 (or dialysis) ? ?| ?Stage five ? | ? Stage five ?+ ---+ ---+ -------+ *Each stage assumes the associated GFR level has been in effect for at least three months. ?Stages 1 to 5, with or without kidney disease, indicate chronic kidney disease. Notes: Determination of stages one and two (with eGFR >59mL/min/1.73 m2) requires estimation of kidney damage for at least three months as defined by structural or functional abnormalities of the kidney, manifested by either:Pathological abnormalities or Markers of kidney damage (including abnormalities in the composition of the blood or urine or abnormalities in imaging tests). Lab Interpretation Abnormal (test code = 90253-0) [facility] GrapevinePROTHROMBIN TIME / [id number] 17:32:00 Test Item Value Reference Range Interpretation Comments PROTIME PATIENT (test See_Comment [Auto mated message] code = 5964-2) The system wh ich generated this result transmitted ref erence range: 12.0 - 1 4.7 Seconds. The re ference range was not u sed to interpret this result as normal/abnor mal. INR (test code = 6301-6) Nor mal INR <1.1; Warfarin Therap eutic range 2.0 to 3. 0 or 2.5 to 3.5, dep ending upon the indica tions. Lab Interpretation (test Normal code = 12328-1) [facility]vineCBC with [id number] 10:11:00 Test Item Value Reference Range Interpretation Comments WBC (test code = See_Comment [Automated 6690-2) message] The sy stem which generated this result transmitted reference range : 4.20 - 10.70 10*3/?L. The reference range was not used to interpret this result as normal/abnormal . RBC (test code = See_Comment L [Automated 789-8) message] The sy stem which generated this result transmitted reference range : 4.26 - 5.52 10*6/?L. The reference range was not used to interpret this result as normal/abnormal . HGB (test code = 11.8 g/dL 12.2-16.4 L 718-7) HCT (test code = 33.3 % 38.4-49.3 L 4544-3) MCV (test code = 111.0 fL 81.7-95.6 H 787-2) MCH (test code = 39.3 pg 26.1-32.7 H 785-6) MCHC (test code = 35.4 g/dL 31.2-35 H 786-4) RDW-SD (test code = 57.9 fL 38.5-51.6 H 41877-5) RDW-CV (test code = 14.1 % 12.1-15.4 788-0) PLT (test code = See_Comment L [Automated 777-3) message] The sy stem which generated this result transmitted reference range : 150 - 328 10*3/ ?L. The reference r kevin was not used to interpret this result as normal/abnormal . MPV (test code = 10.3 fL 9.8-13 89992-4) NRBC/100 WBC (test See_Comment [Automat ed code = 3518726783) message] The system which generated this result transmitted reference range : 0.0 - 10.0 /100 WBCs. The refer ence range was not u sed to interpret th is result as normal/abnormal . NRBC x10^3 (test code See_Comment [Auto mated = 7667739537) message] The s ystem which generated this result transmitted reference range : 10*3/?L. The reference range was not used to interpret this result as normal/abnormal . GRAN MAT (NEUT) % 82.6 % (test code = 770-8) IMM GRAN % (test code 3.40 % = 8473881185) LYMPH % (test code = 5.9 % 736-9) MONO % (test code = 6.3 % 5905-5) EOS % (test code = 1.0 % 713-8) BASO % (test code = 0.8 % 706-2) GRAN MAT x10^3(ANC) 6.34 10*3/uL 1.99-6.95 (test code = 1514998661) IMM GRAN x10^3 (test 0.26 10*3/uL 0-0.06 H code = 5137515534) LYMPH x10^3 (test code 0.45 10*3/uL 1.09-3.23 L = 731-0) MONO x10^3 (test code 0.48 10*3/uL 0.36-1.02 = 742-7) EOS x10^3 (test code = 0.08 10*3/uL 0.06-0.53 711-2) BASO x10^3 (test code 0.06 10*3/uL 0.01-0.09 = 704-7) PLT ESTIMATE (test Normal Normal code = 9317-9) Lab Interpretation Abnormal (test code = 31033-3) [facility] (NA, K, CL, CO2, GLUCOSE, BUN, CREATININE, CA)2020-01-06 09:03:00 Test Item Value Reference Range Interpretation Comments NA (test code = 133 mmol/L 135-145 L 0126927609) K (test code = 2.7 mmol/L 3.5-5 LL 1489149011) CL (test code = 99 mmol/L 98-108 6264852127) CO2 TOTAL (test code = 20 mmol/L 23-31 L 5772628219) AGAP (test code = 2-16 9503906046) BUN (test code = 2 mg/dL 7-23 L 6928931309) GLUCOSE (test code = 85 mg/dL 70-110 0752221337) CREATININE (test code = 0.49 mg/dL 0.6-1.25 L 4168260979) CALCIUM (test code = 8.4 mg/dL 8.6-10.6 L 2675028565) eGFR Calculation mL/min/1.73m2 (Non-) (test code = 0425683596) eGFR Calculation mL/min/1.73m2 () (test code = 8307949780) BERYL (test code = BERYL) Association of Glomerular Filtration Rate (GFR) and Staging of Kidney Disease* + --+ --+ ------+| GFR (mL/min/1.73 m2) ?| With Kidney Damage ?| ?Without Kidney Damage+ --------+ --------+ +| ?>90 ?| ?Stage one ?| ? Normal ?+ ---+ ---+ -------+| ?60-89 ?| ?Stage two ?| ? Decreased GFR ? + --+ --+ ------+| ?30-59 ?| ?Stage three ?| ? Stage three ? + --+ --+ ------+| ?15-29 ?| ?Stage four ? | ? Stage four ?+ ---+ ---+ -------+| ?<15 (or dialysis) ? ?| ?Stage five ? | ? Stage five ?+ ---+ ---+ -------+ *Each stage assumes the associated GFR level has been in effect for at least three months. ?Stages 1 to 5, with or without kidney disease, indicate chronic kidney disease. Notes: Determination of stages one and two (with eGFR >59mL/min/1.73 m2) requires estimation of kidney damage for at least three months as defined by structural or functional abnormalities of the kidney, manifested by either:Pathological abnormalities or Markers of kidney damage (including abnormalities in the composition of the blood or urine or abnormalities in imaging tests). Lab Interpretation Abnormal (test code = 15388-1) [facility] FUN[facility] PAN[facility] (31221) (ALB,T.PRO,BILI T,BU/BC,ALT,AST,ALK PHOS)2020-01-06 09:02:00 Test Item Value Reference Range Interpretation Comments TOTAL BILI (test code = 1986829111) 1.9 mg/dL 0.1-1.1 H BILI UNCON (test code = 1895077444) 0.9 mg/dL 0.1-1.1 BILI CONJ (test code = 3428550319) 0.0 mg/dL 0-0.3 T PROTEIN (test code = 3694424865) 5.8 g/dL 6.3-8.2 L ALBUMIN (test code = 6122968940) 3.1 g/dL 3.5-5 L ALK PHOS (test code = 9559879940) 188 U/L 34-122 H ALTv (test code = 1742-6) 51 U/L 5-50 H AST(SGOT) (test code = 2106156939) 111 U/L 13-40 H Lab Interpretation (test code = Abnormal 99379-0) [facility]vineUS GALL [id number] 03:00:47 Hydropic gallbladder. Gallbladder sludge with no gallbladder wallthickening or pericholecystic fluid. Acute cholecystitis is less likely.Clinical correlation is recommended. HIDA scan can be performedif clinicalsuspicion remains. Preliminary Report Dictated by Resident: Bryan Medina MD., have reviewed this study and agree with theabove report.EXAM: US GALL BLADDER HISTORY:49 years-old Male with RUQ pain, concern for cholecystitis . TECHNIQUE: Limited abdominal ultrasoundperformed focused on thegallbladder. Main portal vein was evaluated with color Doppler imaging.Associate [employer] Management images were obtained for the record. COMPARISON: CT abdomen pelvis 01/05/2020 FINDINGS: LIVE R: Limited evaluation of the liver on this focused gallbladderexamination. Diffuse increase in hepatic parenchymal echogenicity. No focalhepatic lesion. Enlarged liver measures 23.7 cm in craniocaudal dimension. Hepatopetal flow in the main portal vein. GALLBLADDER:Distended gallbladder with layering echogenic material without posteriorshadowing or twinkling compatible with biliary sludge. Gallbladder measuresover 10 cm in the craniocaudal dimension and technically meets criteria forhydrops.Normal gallbladder wall thickness, 2 mm.Minor's sign could not be accurately assessed due to premedication forpain. No pericholecystic fluid is identified. BILE DUCTS:No intra- or extrahepatic biliary dilatation..Common Duct diameter: 4 mm in AP diameter ginette hepatis. PANCREAS: Pancreas completely obscured due to shadowing from bowel gas. [facility], Radiant Results Inft User - 01/05/2020 10:01 PM CDTEXAM: US GALL BLADDERHISTORY: 49 years-old Male with RUQ pain, concern for cholecystitis .TECHNIQUE: Limited abdominal ultrasound performed focused on thegallbladder. 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 Diffuse increase in hepatic parenchymal echogenicity. No focalhepatic lesion. Enlarged liver measures 23.7 cm in craniocaudal dimension. Hepatopetal flow in the main portal vein.GALLBLADDER:Distended gallbladder with layering echogenic material without posteriorshadowing or twinkling compatible with biliary sludge. Gallbladder measuresover 10 cm in the craniocaudal dimension and technically meets criteria forhydrops.Normal gallbladder wall thickness, 2 mm.Minor's sign could not be accurately assessed due to premedication forpain. No pericholecystic fluid is identified.BILE DUCTS:No intra- or extrahepatic biliary dilatation..Common Duct diameter: 4 mm in AP diameter ginette hepatis.PANCREAS: Pancreas completely o bscured due to shadowing from bowel gas.IMPRESSIONHydropic gallbladder. Gallbladder sludge with no gallbladder wallthickening or pericholecystic fluid. Acute cholecystitis is less likely.Clinical correlation is recommended. HIDA scan can be performed if clinicalsuspicion remains.Preliminary Report Dictated by Resident: Bryan Bentley MD., have reviewed this study and agree withtheabove report.[facility]ID NOW RAPID TESTING)2020-01-05 23:02:00 Test Item Value Reference Range Interpretation Comments SARS-CoV-2 Rapid ID NOW Not Detected Not Detected (test code = 11205-2) BERYL (test code = BERYL) ID NOW COVID-19 Assay is an isothermal nucleic acid amplification test intended for the qualitative detection of nucleic acid from SARS-CoV-2 viral RNA in nasopharyngeal ([employer]) specimens. It is used under Emergency Use Authorization (EUA) by FDA. The limit of detection (LOD) of the assay is 125 Genome Equivalents/mL. A positive result is indicative of the presence of SARS-CoV-2 RNA. ?Clinical correlation with patient history and other diagnostic information is necessary to determine patient infection status. A negative (Not Detected) result does not preclude SARS-CoV-2 infection. In patients with clinical symptoms and other tests that are consistent with SARS-CoV-2 infection, negative results should be treated as presumptive negative and a new specimen should be tested with alternative PCR molecular test. Invalid: Please collect a new specimen for repeat patient testing if clinically indicated. Lab Interpretation Normal (test code = 54565-1) [facility]2020-10-06 22:59:00 Test Item Value Reference Range Interpretation Comments APPEARANCE (test code = Hazy Clear A 9489170183) COLOR (test code = Kamille Yellow A 4770554314) PH (test code = 4.8-8.0 2432559335) SP GRAVITY (test code = 1.003-1.030 8622087983) GLU U QUAL (test code = Normal Normal 7013483824) BLOOD (test code = Negative Negative 0801915276) KETONES (test code = 80 mg/dL Negative A 5563178629) PROTEIN (test code = 100 mg/dL Negative A 2887-8) UROBILIN (test code = 4.0 mg/dL Normal A 9123303409) BILIRUBIN (test code = Negative Negative 4182585200) NITRITE (test code = Negative Negative 2997676805) LEUK CAMMIE (test code = Negative Negative 2333577555) RBC/HPF (test code = See_Comment [Autom ated message] 3343019433) The system Lumiata generated this result transmit meng reference range : 0 - 3 HPF. The refe rence range was not u sed to interpret th is result as normal/abnormal . WBC/HPF (test code = See_Comment [Autom ated message] 6447080734) The system Lumiata generated this result transmit meng reference range : 0 - 5 HPF. The refe rence range was not u sed to interpret th is result as normal/abnormal . BACTERIA (test code = Few Negative A 0036909145) MUCOUS (test code = Slight Negative LPF A 3170085738) HYAL CAST (test code = See_Comment H [Aut omated message] 1286111919) The system Lumiata generated this result transmit meng reference range : <=2 LPF. The refere nce range was not u sed to interpret th is result as normal/abnormal . GRAN CASTS (test code = See_Comment H [Au tomated message] 3726237815) The system Lumiata generated this result transmit meng reference range : <=1 LPF. The refere nce range was not u sed to interpret th is result as normal/abnormal . Lab Interpretation (test Abnormal code = 26593-3) [facility] PELVIS WO [id number] 22:37:20Impression: 1. ?Severe hepatic steatosis with no focal lesions or ductal dilatation.Gallbladder is distended with hyperdense sludge. Recommend ultrasound ofthe right upper quadrant as clinically indicated. 2. ?Minimal fat stranding seen around the head of the pancreas isconcerning for acute pancreatit is. 3. ?Bilateral punctate nonobstructing renal stones are seen. 4. ?Extensive sigmoid diverticulosis with no evidence of diverticulitis.Exam: CT ABDOMEN PELVIS WO CONTRAST Clinical History: Abd pain, acute, generalized Comparison: None Findings: The visualized lungs are clear and there is no evidence of pleural orpericardial effusion. Limited evaluation of the solid organs in the absence of IV contrast.Severe hepatic steatosis with no focal lesions or ductal dilatation. Spleenand the adrenals areunremarkable. There is minimal fat stranding seenaround the head of the pancreas which is concerningfor pancreatitis(2:64). Gallbladder is distended with hyperdense sludge. No evidence of hydronephrosis or focal renal lesions. Punctatenonobstructing stones are seen in the right renal midpole (2:70).At thesame level a punctate stone is suspected at the inferior pole of the leftkidney. There is no evidence of free fluid, air, or lymphadenopathy seen in theabdomen and pelvis. No evidence of dilated bowel loops. Extensive sigmoiddiverticulosis is seen with no evidence of diverticulitis. There is noevidence of appendicitis. The urinary bladder and prostate areunremarkable. The abdominal wall is within normal limits. The vasculature shows scatteredatherosclerotic calcifications and the bones show mil d degenerative changesand no suspicious focal lesions. [facility], Radiant Results Inft User - 01/05/2020 5:38 PM CDTExam: CT ABDOMEN PELVIS WO CONTRASTClinical History: Abd pain, acute, generalized Comparison: NoneFindings: The visualized lungs are clear and there is no evidence of pleural orpericardial e ffusion.Limited evaluation of the solid organs in the absence of IV contrast.Severe hepatic steatosis with no focal lesions or ductal dilatation. Spleenand the adrenals are unremarkable. There is minimal fat stranding seenaround the head of the pancreas which is concerning for pancreatitis(2:64). Gallbladder is distended with hyperdense sludge. No evidence of hydronephrosis or focal renal lesions. Punctatenonobstructing stones are seen in the right renal midpole (2:70). At thesame level a punctate stone is suspected at the inferior pole of the leftkidney.There is no evidence of free fluid, air, or l ymphadenopathy seen in theabdomen and pelvis. No evidence of dilated bowel loops. Extensive sigmoiddiverticulosis is seen with no evidence of diverticulitis. There is noevidence of appendicitis. The urinary bladder and prostate areunremarkable.The abdominal wall is within normal limits. The vasculature shows scatteredatherosclerotic calcifications and the bones show mild degenerative changesand no suspicious focal lesions.IMPRESSIONImpression: 1. Severe hepatic steatosis with no focal lesions or ductal dilatation.Gallbladder is distended with hyperdense sludge. Recommend ultrasound ofthe right upper quadrant as clinically indicated.2. Minimal fat stranding seen around the head of the pancreas isconcerning for acute pancreatitis.3. Bilateral punctate nonobstructing renal stones are seen.4. Extensive sigmoid diverticulosis with no evidence of diverticulitis.[facility]. METABOLIC PANEL (11960)2020-01-05 21:54:00 Test Item Value Reference Range Interpretation Comments NA (test code = 129 mmol/L 135-145 L 2143453615) K (test code = 2.9 mmol/L 3.5-5 LL 0348707656) CL (test code = 86 mmol/L 98-108 L 7081049404) CO2 TOTAL (test code = 15 mmol/L 23-31 L 9510581258) AGAP (test code = 2-16 H 2709438095) BUN (test code = 4 mg/dL 7-23 L 1888909444) GLUCOSE (test code = 98 mg/dL 70-110 8293255112) CREATININE (test code = 0.63 mg/dL 0.6-1.25 5922129735) TOTAL BILI (test code = 3.0 mg/dL 0.1-1.1 H 0215050859) CALCIUM (test code = 9.6 mg/dL 8.6-10.6 4455506049) T PROTEIN (test code = 7.9 g/dL 6.3-8.2 5573499593) ALBUMIN (test code = 4.5 g/dL 3.5-5 7433164269) ALK PHOS (test code = 284 U/L 34-122 H 2462679007) ALTv (test code = 70 U/L 5-50 H 1742-6) AST(SGOT) (test code = 139 U/L 13-40 H 4302919862) eGFR Calculation mL/min/1.73m2 (Non-) (test code = 7611760156) eGFR Calculation mL/min/1.73m2 () (test code = 9670784711) BERYL (test code = BERYL) Association of Glomerular Filtration Rate (GFR) and Staging of Kidney Disease* + --+ --+ ------+| GFR (mL/min/1.73 m2) ?| With Kidney Damage ?| ?Without Kidney Damage+ --------+ --------+ +| ?>90 ?| ?Stage one ?| ? Normal ?+ ---+ ---+ -------+| ?60-89 ?| ?Stage two ?| ? Decreased GFR ? + --+ --+ ------+| ?30-59 ?| ?Stage three ?| ? Stage three ? + --+ --+ ------+| ?15-29 ?| ?Stage four ? | ? Stage four ?+ ---+ ---+ -------+| ?<15 (or dialysis) ? ?| ?Stage five ? | ? Stage five ?+ ---+ ---+ -------+ *Each stage assumes the associated GFR level has been in effect for at least three months. ?Stages 1 to 5, with or without kidney disease, indicate chronic kidney disease. Notes: Determination of stages one and two (with eGFR >59mL/min/1.73 m2) requires estimation of kidney damage for at least three months as defined by structural or functional abnormalities of the kidney, manifested by either:Pathological abnormalities or Markers of kidney damage (including abnormalities in the composition of the blood or urine or abnormalities in imaging tests). Lab Interpretation Abnormal (test code = 59627-6) [facility]2020-10-[facility] 21:45:00 Test Item Value Reference Range Interpretation Comments LIPASE (test code = 7000772538) 373 U/L 0-220 H Lab Interpretation (test code = Abnormal 11786-2) [facility] WITH [id number] 21:32:00 Test Item Value Reference Range Interpretation Comments WBC (test code = See_Comment H [Automated 6690-2) message] The system which generated this result transmit meng reference range : 4.20 - 10.70 10*3/?L. The reference range was not used to interpret this result as normal/abnormal . RBC (test code = See_Comment L [Automated 569-8) message] The system which generated this result transmit meng reference range : 4.26 - 5.52 10*6/?L. The reference range was not used to interpret this result as normal/abnormal . HGB (test code = 14.3 g/dL 12.2-16.4 718-7) HCT (test code = 39.9 % 38.4-49.3 4544-3) MCV (test code = 109.9 fL 81.7-95.6 H 787-2) MCH (test code = 39.4 pg 26.1-32.7 H 785-6) MCHC (test code = 35.8 g/dL 31.2-35 H 786-4) RDW-SD (test code = 56.4 fL 38.5-51.6 H 61441-0) RDW-CV (test code = 13.9 % 12.1-15.4 788-0) PLT (test code = See_Comment [Automated 777-3) message] The system which generated this result transmit meng reference range : 150 - 328 10*3/ ?L. The reference range was not u sed to interpret th is result as normal/abnormal . MPV (test code = 10.4 fL 9.8-13 80639-1) NRBC/100 WBC (test See_Comment [Automat ed code = 4960009356) message] The system which generated this result transmit meng reference range : 0.0 - 10.0 /100 WBCs. The reference range was not used to interpret this result as normal/abnormal . NRBC x10^3 (test code See_Comment [Auto mated = 2995583009) message] The system which generated this result transmit meng reference range : 10*3/?L. The reference range was not used to interpret this result as normal/abnormal . GRAN MAT (NEUT) % 86.3 % (test code = 770-8) IMM GRAN % (test code 1.90 % = 7152151979) LYMPH % (test code = 4.7 % 736-9) MONO % (test code = 6.5 % 5905-5) EOS % (test code = 0.1 % 713-8) BASO % (test code = 0.5 % 706-2) GRAN MAT x10^3(ANC) 11.11 10*3/uL 1.99-6.95 H (test code = 8491519636) IMM GRAN x10^3 (test 0.25 10*3/uL 0-0.06 H code = 6750007833) LYMPH x10^3 (test code 0.60 10*3/uL 1.09-3.23 L = 731-0) MONO x10^3 (test code 0.83 10*3/uL 0.36-1.02 = 742-7) EOS x10^3 (test code = <0.03 0.06-0.53 L 711-2) BASO x10^3 (test code 0.06 10*3/uL 0.01-0.09 = 704-7) Lab Interpretation Abnormal (test code = 06982-9) [facility] [id number] 00:00:00Please see endoscopic findings from clinic note from 05/07/2019[facility] [id number] 00:00:00Please see endoscopic findings from clinic note from 05/07/2019.[facility] FLEXIBLE SCOPE [id number] 00:00:00Please see endoscopic findings from clinic [facility]07/2019[facility] 2019-05-07 00:00:00Please see endoscopic findings from clinic [facility]07[facility]2019[facility] [id number] 00:00:00 Please see endoscopic findings from clinic note from 05/07/2019.[facility] [id number] 07:31:00 Test Item Value Reference Range Interpretation Comments CREATININE (BEAKER) 0.63 mg/dL 0.57-1.25 (test code = 358) EGFR (BEAKER) (test 136 mL/min/1.73 ESTIM ATED GFR IS code = 1092) sq m NOT ACCURATE CREATININE CLEARANCE IN PREDICTING GLOMERULAR FILTRATION RATE . ESTIMATED GFR I S NOT APPLICABLE FOR DIALYSIS PATIEN TS. WOUND CULTURE + GRAM [id number] 16:32:00 Test Item Value Reference Range Interpretation Comments CULTURE (BEAKER) (test No growth code = 1095) GRAM STAIN RESULT 2+ WBCs (BEAKER) (test code = 1123) GRAM STAIN RESULT 1+ gram positive cocci (BEAKER) (test code = in pairs 37739) GRAM STAIN RESULT <1+ gram variable rods (BEAKER) (test code = 10421) VANCOMYCIN LEVEL, [id number] 23:37:00 Test Item Value Reference Range Interpretation Comments VANCOMYCIN TROUGH (BEAKER) (test 7.5 ug/mL 10.0-20.0 L code = 522) FL, ESOPH, SWALLOW FUNCTION, WITH CINE OR [id number] 18:19:00Cervical esophagram with GASTROGAFFINReason for exam:->status post [...] time: 0.65 minutes. 46 images. Signed: Gaudencio Beltran MDReport Verified Date/Time: 08/12/2018 18:19:29 Reading Location: [address] Consult Reading Room CBC W/PLT COUNT & AUTO [id number] 04:39:00 Test Item Value Reference Range Interpretation [...] (test code = 2801) TSH/FREE T4 IF [id number] 18:11:00 Test Item Value Reference Range Interpretation Comments THYROID STIMULATING HORMONE 0.75 uIU/mL 0.35-4.94 (BEAKER) (test code = 772) CBC W/PLT COUNT & AUTO [id number] 17:31:00 Test Item Value Reference Range Interpretation [...] PERCENT (BEAKER) (test code = 2801) TISSUE [id number] 10:26:00Surgical Pathology Report Case: [id number] Authorizing Provider: Guilherme Fraire MD Collected: 07/14/2018 1023 Ordering Location: [facility] PERI[facility] Received: 07/14/2018 1029 SERVICES [...] NODES (0/2) Signing Pathologist Direct Phone Line: [phone] signed by Jackie Hardy MD on 07/25/2018 [...] cannot be determined from the submitted specimen(s) 04989 X3, 00877, 70725, 70597 X2, 94100 X 4, 62939 x1, 33193 [id number] 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 The specimen is received fresh for intraoperative consultation labeled with patient's name "CHELI", medical record number, and "rule out left superior parathyroid." It consists of a piece of paieg-pink tissue measuring 0.4 x 0.3 x 0.2 [...] longitudinally and reveals no gross mass lesion. Associate Professor Of Management sections are submitted as follows: C6 - [...] shows ulcer and granulation tissue. On C19, [place]-8 positivity confirms portion of thyroidtissue present. On [...] stains. Immunohistochemistry technical testing was performed at [facility], Pathology Laboratory where it was developed and [...] clinical laboratory testing.CBC W/PLT COUNT & AUTO [id number] 09:34:00 Test Item Value Reference Range Interpretation [...] = 3438) Received comment: User comments: Slide comments:[id number] 05:40:00 Test Item Value Reference Range Interpretation Comments PHOSPHORUS (BEAKER) (test code = 4.8 mg/dL 2.3-4.7 H 604) [id number] 05:40:00 Test Item Value Reference Range Interpretation Comments MAGNESIUM (BEAKER) (test code = 2.1 mg/dL 1.6-2.6 627) BASIC METABOLIC [id number] 05:40:00 Test Item Value Reference Range Interpretation [...] PATIEN TS. CBC W/PLT COUNT & AUTO [id number] 11:50:00 Test Item Value Reference Range Interpretation [...] 0-5 epithelial cells (BEAKER) (test code = 29813) GRAM STAIN RESULT No organisms seen (BEAKER) (test code = 07229) [id number] 06:07:00 Test Item Value Reference Range Interpretation Comments PHOSPHORUS (BEAKER) (test code = 4.6 mg/dL 2.3-4.7 604) [id number] 06:07:00 Test Item Value Reference Range Interpretation Comments MAGNESIUM (BEAKER) (test code = 2.0 mg/dL 1.6-2.6 627) BASIC METABOLIC [id number] 06:07:00 Test Item Value Reference Range Interpretation [...] APPLICABLE FOR DIALYSIS PATIEN TS. VANCOMYCIN LEVEL, [id number] 23:12:00 Test Item Value Reference Range Interpretation Comments VANCOMYCIN TROUGH (BEAKER) (test 3.2 ug/mL 10.0-20.0 L code = 522) POCT-GLUCOSE [id number] 17:57:00 Test Item Value Reference Range Interpretation Comments POC-GLUCOSE METER 105 mg/dL 70-110 TESTED AT [facility] 67[address] (BEAKER) (test code = ALIYA Sara [place] 1537) [address] CBC W/PLT COUNT & AUTO [id number] 13:00:00 Test Item Value Reference Range Interpretation [...] 3438) Received comment: User comments: Slide comments:POCT-GLUCOSE [id number] 12:50:00 Test Item Value Reference Range Interpretation Comments POC-GLUCOSE METER 117 mg/dL 70-110 H TESTED AT [facility] 67[address] (BEAKER) (test code = GREGORYFAUSTO [place] 1538) [address] [id number] 07:00:00 Test Item Value Reference Range Interpretation Comments PHOSPHORUS (BEAKER) (test code = 4.2 mg/dL 2.3-4.7 604) [id number] 07:00:00 Test Item Value Reference Range Interpretation Comments MAGNESIUM (BEAKER) (test code = 1.9 mg/dL 1.6-2.6 627) BASIC METABOLIC [id number] 07:00:00 Test Item Value Reference Range Interpretation [...] PATIEN TS. CBC W/PLT COUNT & AUTO [id number] 10:11:00 Test Item Value Reference Range Interpretation [...] = 3438) Received comment: User comments: Slide comments:[id number] 05:39:00 Test Item Value Reference Range Interpretation Comments PHOSPHORUS (BEAKER) (test code = 5.1 mg/dL 2.3-4.7 H 604) [id number] 05:39:00 Test Item Value Reference Range Interpretation Comments MAGNESIUM (BEAKER) (test code = 2.0 mg/dL 1.6-2.6 627) BASIC METABOLIC [id number] 05:39:00 Test Item Value Reference Range Interpretation [...] APPLICABLE FOR DIALYSIS PATIEN TS. VANCOMYCIN LEVEL, [id number] 23:38:00 Test Item Value Reference Range Interpretation Comments VANCOMYCIN TROUGH (BEAKER) (test 5.5 ug/mL 10.0-20.0 L code = 522) CBC W/PLT COUNT & AUTO [id number] 10:44:00 Test Item Value Reference Range Interpretation [...] = 3438) Received comment: User comments: Slide comments:[id number] 06:44:00 Test Item Value Reference Range Interpretation Comments MAGNESIUM (BEAKER) 2.1 mg/dL 1.6-2.6 Specimen slightly (test code = 627) hemolyzed [id number] 06:44:00 Test Item Value Reference Range Interpretation Comments PHOSPHORUS (BEAKER) 5.0 mg/dL 2.3-4.7 H Specimen slightly (test code = 604) hemolyzed BASIC METABOLIC [id number] 06:44:00 Test Item Value Reference Range Interpretation [...] S NOT APPLICABLE FOR DIALYSIS PATIEN TS. [id number] 06:06:00 Test Item Value Reference Range Interpretation [...] with mechanical heart valves.SPUTUM CULTURE + GRAM [id number] 14:44:00 Test Item Value Reference Range Interpretation Comments CULTURE (BEAKER) Oropharyngeal (test code = 1095) contamination, specimen rejected. Recollect requested. GRAM STAIN RESULT <1+ WBCs (BEAKER) (test code = 1123) GRAM STAIN RESULT >25 epithelial cells (BEAKER) (test code = 94374) GRAM STAIN RESULT <1+ gram positive rods (BEAKER) (test code = 82154) RAD, CHEST, 1 VIEW, NON [id number] 13:59:00Reason for exam:->leukocytosis in setting of recent laryngectomyShould this be [facility]?->YesFINAL REPORT INDICATION: leukocytosis in setting of recent laryngectomy COMPARISON:July 17 TECHNIQUE: Chest radiograph, single view, portable technique. FINDINGS / IMPRESSION: No pneumonia is demonstrated. Right base linear opacities represent subsegmental atelectasis. Tracheostomy tube and left low neck dissection noted. No pneumomediastinum or pneumothorax demonstrated. Cardiac and mediastinal contours unremarkable. Signed: Randolph Gaviria MDReport Verified Date/Time: 07/19/2018 13:59:21 Reading Location: [facility] Consult Reading Room URINALYSIS W/ REFLEX URINE [id number] 11:14:00 Test Item Value Reference Range Interpretation [...] 514) SOURCE(BEAKER) (test code = 2795) POCT-GLUCOSE [id number] 06:46:00 Test Item Value Reference Range Interpretation Comments POC-GLUCOSE METER 102 mg/dL 70-110 TESTED AT [facility] 67[address] (BEAKER) (test code = ALIYA [place] 1538) [address] [id number] 04:52:00 Test Item Value Reference Range Interpretation Comments PHOSPHORUS (BEAKER) (test code = 4.1 mg/dL 2.3-4.7 604) [id number] 04:52:00 Test Item Value Reference Range Interpretation Comments MAGNESIUM (BEAKER) (test code = 1.8 mg/dL 1.6-2.6 627) BASIC METABOLIC [id number] 04:52:00 Test Item Value Reference Range Interpretation [...] PATIEN TS. CBC W/PLT COUNT & AUTO [id number] 04:25:00 Test Item Value Reference Range Interpretation [...] H PERCENT (BEAKER) (test code = 2801) [id number] 04:11:00 Test Item Value Reference Range Interpretation [...] 2.5-3.5 for patients with mechanical heart valves.POCT-GLUCOSE [id number] 00:11:00 Test Item Value Reference Range Interpretation Comments POC-GLUCOSE METER 76 mg/dL 70-110 TESTED AT [place] [address] (BANNER) (test code = [facility] [address] 1538) POCT-GLUCOSE [id number] 17:53:00 Test Item Value Reference Range Interpretation Comments POC-GLUCOSE METER 94 mg/dL 70-110 TESTED AT [place] [address] (BANNER) (test code = [facility] [address] 1538) T4, [id number] 11:41:00 Test Item Value Reference Range Interpretation Comments FREE T4 (BANNER) (test code = 655) 0.90 ng/dL 0.70-1.48 POCT-GLUCOSE [id number] 11:35:00 Test Item Value Reference Range Interpretation Comments POC-GLUCOSE METER 103 mg/dL 70-110 TESTED AT [facility] 67[address] (BANNER) (test code = ALIYA [place] 1538) [address] TSH/FREE T4 IF [id number] 10:50:00 Test Item Value Reference Range Interpretation Comments THYROID STIMULATING HORMONE 14.67 uIU/mL 0.35-4.94 H (BEAKER) (test code = 772) POCT-GLUCOSE [id number] 06:42:00 Test Item Value Reference Range Interpretation Comments POC-GLUCOSE METER 111 mg/dL 70-110 H TESTED AT [facility] [address] (BANNER) (test code = ALIYA [place] 1538) [address] CBC W/PLT COUNT & AUTO [id number] 05:20:00 Test Item Value Reference Range Interpretation Comments WHITE BLOOD CELL COUNT (BEAKER) 11.4 K/ L 3.5-10.5 H (test code = 775) RED BLOOD CELL COUNT (BEAKER) 3.40 M/ L 4.63-6.08 L (test code = 761) HEMOGLOBIN (BEAKER) (test code = 10.3 GM/DL 13.7-17.5 L 410) HEMATOCRIT (BEAKER) (test code = 33.6 % 40.1-51.0 L [...] H PERCENT (BEAKER) (test code = 2801) [id number] 05:00:00 Test Item Value Reference Range Interpretation Comments PHOSPHORUS (BEAKER) (test code = 5.2 mg/dL 2.3-4.7 H 604) [id number] 05:00:00 Test Item Value Reference Range Interpretation Comments MAGNESIUM (BEAKER) (test code = 2.0 mg/dL 1.6-2.6 627) BASIC METABOLIC [id number] 05:00:00 Test Item Value Reference Range Interpretation [...] S NOT APPLICABLE FOR DIALYSIS PATIEN TS. [id number] 04:55:00 Test Item Value Reference Range Interpretation [...] 3438) Received comment: User comments: Slide comments:POCT-GLUCOSE [id number] 06:41:00 Test Item Value Reference Range Interpretation Comments POC-GLUCOSE METER 115 mg/dL 70-110 H TESTED AT [facility] 6720 (BEAKER) (test code = ALIYA [place]QUE[place] 1538) [address] BASIC METABOLIC [id number] 04:53:00 Test Item Value Reference Range Interpretation [...] S NOT APPLICABLE FOR DIALYSIS PATIEN TS. [id number] 04:37:00 Test Item Value Reference Range Interpretation Comments PHOSPHORUS (BEAKER) (test code = 3.9 mg/dL 2.3-4.7 604) [id number] 04:37:00 Test Item Value Reference Range Interpretation Comments MAGNESIUM (BEAKER) (test code = 1.6 mg/dL 1.6-2.6 627) [id number] 04:37:00 Test Item Value Reference Range Interpretation Comments ALBUMIN (BEAKER) (test code = 1145) 3.2 g/dL 3.5-5.0 L [id number] 04:24:00 Test Item Value Reference Range Interpretation Comments PROTIME (BEAKER) (test code = 15.9 seconds 11.7-14.7 H 759) INR (BEAKER) (test code = 370) 1.2 <=5.9 PARTIAL THROMBOPLASTIN TIME 51.7 seconds 22.5-36.0 H (BANNER) (test code = 760) RECOMMENDED COUMADIN/WARFARIN INR THERAPY RANGESSTANDARD DOSE: 2.0 - 3.0 Includes: PROPHYLAXIS forvenous thrombosis, systemic embolization; TREATMENT for venous thrombosis and/or pulmonary embolus.HIGH RISK: Target INR is 2.5-3.5 for patients with mechanical heart valves.RAD, CHEST, 1 VIEW, NON [id number] 03:56:00Reason for exam:->atelectasisShould this be performed at the bedside?->YesFINAL REPORT CLINICAL INDICATION: Support lines. Comparison: 07/16/2018 The cardiomediastinal contours are stable. The lung volumes remain low. Bibasilar parenchymal and pleural opacities are similar to previous. There is no pneumothorax. A tracheostomy tube is stable in position. A pigtail catheter overlies the left upper quadrant, probably a G- tube. Signed: Mayra Garcia [facility] Verified Date/Time: 07/17/2018 03:56:49 Reading Location: [address] Reading Room POCT-GLUCOSE [id number] 00:56:00 Test Item Value Reference Range Interpretation Comments POC-GLUCOSE METER 115 mg/dL 70-110 H TESTED AT [place] [address] (BANNER) (test code = ALIYA Ruiz [facility] 1538) [address] POCT-GLUCOSE [id number] 18:10:00 Test Item Value Reference Range Interpretation Comments POC-GLUCOSE METER 116 mg/dL 70-110 H TESTED AT [place] [address] (BANNER) (test code = ALIYA Ruiz [facility] 1538) [address] POCT-GLUCOSE [id number] 13:10:00 Test Item Value Reference Range Interpretation Comments POC-GLUCOSE METER 115 mg/dL 70-110 H TESTED AT [place] [address] (BANNER) (test code = ALIYA Ruiz [facility] 1538) [address] RAD, CHEST, 1 VIEW, NON [id number] 08:20:00Reason for exam:- >atelectasisShould this be performed at the bedside?->YesFINAL REPORT Portable chest. CLINICAL HISTORY: atelectasis. COMPARISON STUDY:Chest x-ray from yesterday. FINDINGS: The cardiac silhouette is enlarged. The pulmonary parenchyma demonstrates atelectasis or consolidation in the right lung base, stable from previous. The support lines and tubes are unchanged. No pneumothorax is seen. Degenerative changes are noted. IMPRESSION: No significant change. Signed: Gaudencio Beltran MDReport Verified Date/Time: 07/16/2018 08:20:57 ReadingLocation: [facility] B1 C013X Ortho Consult Reading Room TROPONIN Don 2018-07-16 08:03:00 Test Item Value Reference Range [...] acute neurological disease, and persistent tachyarrhythmia.BLOOD GAS, [id number] 07:42:00 Test Item Value Reference Range Interpretation [...] (test code = 1819) 44.0 % POCT-GLUCOSE [id number] 06:03:00 Test Item Value Reference Range Interpretation Comments POC-GLUCOSE METER 120 mg/dL 70-110 H TESTED AT [facility] 6720 (BEAKER) (test code = AL[place]QUE[place] 1532) [address] CBC W/PLT COUNT & AUTO [id number] 04:00:00 Test Item Value Reference Range Interpretation [...] 0-1 PERCENT (BEAKER) (test code = 2801) [id number] 03:38:00 Test Item Value Reference Range Interpretation Comments MAGNESIUM (BEAKER) 2.0 mg/dL 1.6-2.6 Specimen slightly (test code = 627) hemolyzed [id number] 03:38:00 Test Item Value Reference Range Interpretation Comments PHOSPHORUS (BEAKER) 3.6 mg/dL 2.3-4.7 Specimen slightly (test code = 604) hemolyzed BASIC METABOLIC [id number] 03:38:00 Test Item Value Reference Range Interpretation [...] S NOT APPLICABLE FOR DIALYSIS PATIEN TS. [id number] 03:38:00 Test Item Value Reference Range Interpretation Comments ALBUMIN (BEAKER) (test 3.9 g/dL 3.5-5.0 Speci men slightly code = 1145) hemolyzed [id number] 03:31:00 Test Item Value Reference Range Interpretation Comments PROTIME (BANNER) (test code = 15.5 seconds 11.7-14.7 H 759) INR (BANNER) (test code = 370) 1.2 <=5.9 PARTIAL THROMBOPLASTIN TIME 34.5 seconds 22.5-36.0 (BANNER) (test code = 760) RECOMMENDED COUMADIN/WARFARIN INR THERAPY RANGESSTANDARD DOSE: 2.0 - 3.0 Includes: PROPHYLAXIS forvenous thrombosis, systemic embolization; TREATMENT for venous thrombosis and/or pulmonary embolus.HIGH RISK: Target INR is 2.5-3.5 for patients with mechanical heart valves.POCT-GLUCOSE [id number] 23:39:00 Test Item Value Reference Range Interpretation Comments POC-GLUCOSE METER 121 mg/dL 70-110 H TESTED AT [place] [address] (BANNER) (test code = [facility] 1538) [address] POCT-GLUCOSE [id number] 18:25:00 Test Item Value Reference Range Interpretation Comments POC-GLUCOSE METER 112 mg/dL 70-110 H TESTED AT [place] [address] (BANNER) (test code = [facility] 1538) [address] T4, [id number] 12:56:00 Test Item Value Reference Range Interpretation Comments FREE T4 (BANNER) (test code = 655) 1.17 ng/dL 0.70-1.48 POCT-GLUCOSE [id number] 11:35:00 Test Item Value Reference Range Interpretation Comments POC-GLUCOSE METER 143 mg/dL 70-110 H TESTED AT [place] [address] (BANNER) (test code = [facility] 1538) [address] CBC W/PLT COUNT & AUTO [id number] 07:50:00 Test Item Value Reference Range Interpretation Comments WHITE BLOOD CELL COUNT (BANNER) 24.1 K/ L 3.5-10.5 H (test code = 775) RED BLOOD CELL COUNT (BANNER) 3.75 M/ L 4.63-6.08 L (test code = 761) HEMOGLOBIN (BANNER) (test code = 11.7 GM/DL 13.7-17.5 L 410) HEMATOCRIT (BANNER) (test code = 35.7 % 40.1-51.0 L [...] Stable contours. Additional findings: None. Signed: Lui Wiggins MDReport Verified Date/Time: 07/15/2018 05:48:22 Reading Location: [facility] C013V Neuro Reading Room POCT-GLUCOSE [id number] 05:47:00 Test Item Value Reference Range Interpretation Comments POC-GLUCOSE METER 177 mg/dL 70-110 H TESTED AT [facility] 6720 (BEAKER) (test code = ALI[place]QUE[place] 1538) [address] [id number] 04:29:00 Test Item Value Reference Range Interpretation Comments PHOSPHORUS (BEAKER) (test code = 2.3 mg/dL 2.3-4.7 604) [id number] 04:29:00 Test Item Value Reference Range Interpretation Comments MAGNESIUM (BEAKER) (test code = 1.7 mg/dL 1.6-2.6 627) BASIC METABOLIC [id number] 04:29:00 Test Item Value Reference Range Interpretation [...] S NOT APPLICABLE FOR DIALYSIS PATIEN TS. [id number] 04:29:00 Test Item Value Reference Range Interpretation Comments ALBUMIN (BEAKER) (test code = 1145) 3.8 g/dL 3.5-5.0 [id number] 04:22:00 Test Item Value Reference Range Interpretation [...] 2.5-3.5 for patients with mechanical heart valves.POCT-GLUCOSE [id number] 23:55:00 Test Item Value Reference Range Interpretation Comments POC-GLUCOSE METER 159 mg/dL 70-110 H TESTED AT [facility] 6720 (BEAKER) (test code = AL[place] 1538) [address] [id number] 19:41:00 Test Item Value Reference Range Interpretation Comments THYROID STIMULATING HORMONE 6.82 uIU/mL 0.35-4.94 H (BEAKER) (test code = 772) [id number] 19:26:00 Test Item Value Reference Range Interpretation Comments PHOSPHORUS (BEAKER) (test code = 4.9 mg/dL 2.3-4.7 H 604) Postop labsPostop labsPostop labsPostop [id number] 19:26:00 Test Item Value Reference Range Interpretation Comments MAGNESIUM (BEAKER) (test code = 1.9 mg/dL 1.6-2.6 627) Postop labsPostop labsPostop labsPostop labsBASIC METABOLIC [id number] 19:26:00 Test Item Value Reference Range Interpretation [...] DIALYSIS PATIEN TS. Postop labsPostop labsPostop labsPostop [id number] 19:26:00 Test Item Value Reference Range Interpretation Comments ALBUMIN (BEAKER) (test code = 1145) 3.9 g/dL 3.5-5.0 Postop labsPostop labsPostop labsPostop [id number] 19:24:00 Test Item Value Reference Range Interpretation Comments PREALBUMIN (BEAKER) 17 mg/dL 14-45 Specimen slightly (test code = 586) hemolyzed PTH, [id number] 19:23:00 Test Item Value Reference Range Interpretation Comments PARATHYROID HORMONE INTACT 16.1 pg/mL 8.5-72.5 (BEAKER) (test code = 577) Postop LabsCBC W/PLT COUNT & AUTO [id number] 18:58:00 Test Item Value Reference Range Interpretation [...] (BEAKER) (test code = 2801) BLOOD GAS, [id number] 15:31:00 Test Item Value Reference Range Interpretation [...] 1819) 100.0 % HGB/HCT (H&H) - STAT [id number] 15:31:00 Test Item Value Reference Range Interpretation Comments HEMOGLOBIN (BEAKER) (test code = 11.0 g/dL 13.0-16.8 L 410) HEMATOCRIT (BEAKER) (test code = 32.0 % 40.0-50.0 L 411) GLUCOSE-STAT [id number] 15:30:00 Test Item Value Reference Range Interpretation Comments GLUCOSE RANDOM (BEAKER) (test code = 87 mg/dL 70-110 652) SODIUM NA-STAT [id number] 15:30:00 Test Item Value Reference Range Interpretation Comments SODIUM (BEAKER) (test code = 381) 137 meq/L 135-148 POTASSIUM-STAT [id number] 15:30:00 Test Item Value Reference Range Interpretation Comments POTASSIUM (BEAKER) (test code = 4.0 meq/L 3.6-5.5 379) ANG, INSERTION G TUBE, W/ [id number] 14:18:00Reason for exam:- >Gastrostomy tubeFINAL REPORT Fluoroscopic guided gastrostomy tube placement, 07/11/2018. Clinical History: Laryngeal cancer. Modality: Fluoroscopy. Corduroy Brusher Operator: Jack Lima MD. Pocket And Pulley Machine Operator: Dilip Vivas MD. Conscious sedation: 2.0 mg [...] placement, with conscious sedation. Signed: Jack Lima MDRnicolasort Verified Date/Time: 07/11/2018 14:18:50 Reading Location: [place] [address] Angio Body Reading Room Electronically signed by: JACK Rose 07/11/2018 02:18 PMTSH/FREE T4 IF [id number] 13:24:00 Test Item Value Reference Range Interpretation Comments THYROID STIMULATING HORMONE 2.37 uIU/mL 0.35-4.94 (BEAKER) (test code = 772) RAD, CHEST, PA OR AP, 1 [id number] 11:03:00Reason for exam:->coughShould this be performed at the bedside?->NoFINAL REPORT AP chest HISTORY: Cough. COMPARISON: 06/17/2018. IMPRESSION: Tracheostomy tube present. Heart size normal. Lungs clear without effusion or pneumothorax. Intact skeleton. Signed: Ashok Whitaker MDReport Verified Date/Time: 07/10/2018 11:03:24 Reading Location: [address] Radiology Reading Room 11:03 AMCOMPREHENSIVE METABOLIC [id number] 10:52:00 Test Item Value Reference Range Interpretation [...] PATIEN TS. CBC W/PLT COUNT & AUTO [id number] 10:32:00 Test Item Value Reference Range Interpretation [...] H PERCENT (BEAKER) (test code = 2801) [id number] 10:30:00 Test Item Value Reference Range Interpretation [...] 2.5-3.5 for patients with mechanical heart valves.BLOOD [id number] 20:01:00 Test Item Value Reference Range Interpretation Comments CULTURE (BEAKER) (test No growth in 5 days code = 1095) BLOOD [id number] 20:01:00 Test Item Value Reference Range Interpretation Comments CULTURE (BEAKER) (test No growth in 5 days code = 1095) CBC W/PLT COUNT & AUTO [id number] 12:54:00 Test Item Value Reference Range Interpretation [...] Received comment: User comments: Slide comments:BASIC METABOLIC [id number] 06:44:00 Test Item Value Reference Range Interpretation [...] NOT APPLICABLE FOR DIALYSIS PATIEN TS. BLOOD [id number] 12:01:00 Test Item Value Reference Range Interpretation Comments CULTURE (BEAKER) (test No growth in 5 days code = 1095) CBC W/PLT COUNT & AUTO [id number] 11:06:00 Test Item Value Reference Range Interpretation [...] PLATELET CONCENTRATION Adequate (CELLAVISION)(BEAKER) (test code = 3658) Received comment: User comments: Slide comments:BASIC METABOLIC [id number] 08:11:00 Test Item Value Reference Range Interpretation [...] NOT APPLICABLE FOR DIALYSIS PATIEN TS. BLOOD [id number] 08:01:00 Test Item Value Reference Range Interpretation Comments CULTURE (BEAKER) (test No growth in 5 days code = 1095) BLOOD [id number] 02:00:00 Test Item Value Reference Range Interpretation Comments CULTURE (BEAKER) (test No growth in 5 days code = 1095) BLOOD [id number] 02:00:00 Test Item Value Reference Range Interpretation Comments CULTURE (BEAKER) (test No growth in 5 days code = 1095) CBC W/PLT COUNT & AUTO [id number] 15:32:00 Test Item Value Reference Range Interpretation [...] Received comment: User comments: Slide comments:BASIC METABOLIC [id number] 07:38:00 Test Item Value Reference Range Interpretation [...] PATIEN TS. CBC W/PLT COUNT & AUTO [id number] 12:37:00 Test Item Value Reference Range Interpretation [...] Received comment: User comments: Slide comments:BASIC METABOLIC [id number] 12:04:00 Test Item Value Reference Range Interpretation [...] APPLICABLE FOR DIALYSIS PATIEN TS. VANCOMYCIN LEVEL, [id number] 12:02:00 Test Item Value Reference Range Interpretation Comments VANCOMYCIN RANDOM (BEAKER) (test 1.3 ug/mL code = 523) Reference Range: No [id number] 12:00:00 Test Item Value Reference Range Interpretation Comments MAGNESIUM (BEAKER) (test code = 2.2 mg/dL 1.6-2.6 627) SPUTUM CULTURE + GRAM [id number] 11:45:00 Test Item Value Reference Range Interpretation [...] 15-20 epithelial (BEAKER) (test code cells = 040884) GRAM STAIN RESULT <1+ gram negative (BEAKER) (test code coccobacilli = 624446) GRAM STAIN RESULT <1+ gram positive (BEAKER) (test code cocci in pairs = 574001) GRAM STAIN RESULT <1+ yeast with (BEAKER) (test code pseudohyphae = 637337) GRAM STAIN RESULT 1+ gram variable (BEAKER) (test code rods = 529643) 1+ [facility]O DIFFERENTIAL 2018-06-17 [...] H PERCENT (BEAKER) (test code = 2801) [id number] 14:37:00 Test Item Value Reference Range Interpretation Comments PROCALCITONIN (BEAKER) (test code 0.08 ng/mL <0.05 H = 3036) SEPSIS RISK (ng/mL)Low: 0.05-0.50Intermediate: 0.51-2.00High: >=2.01LACTIC ACID, [id number] 13:43:00 Test Item Value Reference Range Interpretation Comments LACTATE BLOOD VENOUS 2.4 mmol/L 0.5-2.2 H Specime n slightly (2) (BEAKER) (test hemolyzed code = 2872) TISSUE [id number] 13:24:00Surgical Pathology Report Case: [id number] Authorizing Provider: Guilherme Fraire MD Collected: 06/09/2018 1735 Ordering Location: [address] Received: 06/10/2018 0811 Cardiovascular Pathologist: Jennifer Hull MD Specimen: SoftTissue, Other, LEFT SUPRAGLOTTIC MASS LEFT SUPRAGLOTTIC MASS, LARYNGOSCOPIC BIOPSY: - ATYPICAL SQUAMOUS PROLIFERATION (SEE COMMENT) Signing Pathologist Direct Phone Line: [phone] signed by Jennifer Hull MD on 06/17/2018 [...] carcinoma is seen. Thebiopsy may not be wire rope sales representative of the entirelesion; Clinical correlation is recommended.51265; 30409; 73020Gydeulkqv mass Left subglottic massThe specimen is received in a fluidless container labeled with patient information and labeled "left supraglottic mass" consisting of four fragments of red soft tissue ranging from 0.1 to 0.4 cm, submitted entirely A1. CG/pl PERFORMEDThe interpretation of this case included the use of immunohistochemistry or special stains. p53 and AE1/IC7Gvwepfthbwxslqxzzzri technical testing was performed at [facility], Pathology Laboratory where it was developed and [...] to perform high complexity clinical laboratory testing.FL, MAURIOPH, SWALLOW FUNCTION, WITH CINE OR [id number] 12:08:00Reason for exam:->silent aspiration evaluationFINAL REPORT Modified [...] time: 0.4 minutes. One image. Signed: Gaudencio Beltran MDReport Verified Date/Time: 06/17/2018 12:08:38 Reading Location: [address] Reading Room [id number] 09:44:00 Test Item Value Reference Range Interpretation Comments MAGNESIUM (BEAKER) (test code = 1.9 mg/dL 1.6-2.6 627) [id number] 09:44:00 Test Item Value Reference Range Interpretation Comments PHOSPHORUS (BEAKER) (test code = 2.9 mg/dL 2.3-4.7 604) RAD, CHEST, 1 VIEW, NON [id number] 08:16:00Reason for exam:->SOBShould this be performed at the bedside?->YesFINAL REPORT Chest one view. Clinical history: SOB Comparison: June 16, 2018 Discussion: A frontal chest is provided. Cardiomediastinal contours are unchanged. Tracheostomy tube is in stable position. Unchanged patchy bibasilar airspace opacities. There is mild degree of interstitial prominence that may reflect edema. No pneumothorax or large effusion. Signed: Judy Avelareport Verified Date/Time: 06/17/2018 08:16:46 Reading Location: [facility] Radiology Reading Room BASIC METABOLIC [id number] 06:25:00 Test Item Value Reference Range Interpretation [...] APPLICABLE FOR DIALYSIS PATIEN TS. VANCOMYCIN LEVEL, [id number] 06:25:00 Test Item Value Reference Range Interpretation Comments VANCOMYCIN RANDOM (BEAKER) (test 9.6 ug/mL code = 523) Reference Range: No NormalsDraw 30 min prior to scheduled dose, HOLD if level > 20 mcg/mL, informMD.RESPIRATORY PANEL [id number] 12:23:00 Test Item Value Reference Range Interpretation [...] decisions. This sample was tested at the [facility] Molecular Diagnostics Laboratory using the Ping[employer] Respiratory Panel. It is FDA cleared and has been verified and approved by the [facility] Molecular Diagnostics Laboratory for clinical use on nasal swab specimens. It is not FDA-cleared for use on bronchial wash/lavage samples. However, for this sample type, validation was performed and test characteristics were determined and approved, by [facility] laboratory for clinical use under the Clinical Laboratory Improvement Amendments (CLIA) of 1988 requirements. Therefore, FDA clearance isnot required. This laboratory is CLIA- certified and [employer] (CAP)-accredited to perform high complexity testing.CBC W/PLT COUNT & AUTO [id number] 11:27:00 Test Item Value Reference Range Interpretation [...] comments:CT, CHEST WITH IV CONTRAST- PE TEST [id number] 09:53:00Worsening hypoxia s/o diagnosis and excision of [...] [facility] Diagnostic Imaging Reading Room - [place] [address] RAD, CHEST, 1 VIEW, NON [id number] 07:36:00Reason for exam:->recent pneumothorax, new trachShould this [...] MDReport Verified Date/Time: 06/16/2018 07:36:27 Reading Location: [facility] Radiology Reading Room BASIC METABOLIC [id number] 05:45:00 Test Item Value Reference Range Interpretation [...] 697) EGFR (BEAKER) (test 99 mL/min/1.73 ESTIMA MENG GFR IS code = 1092) sq m NOT ACCURATE CREATININE CLEARANCE IN PREDICTING GLOMERULAR FILTRATION RATE . ESTIMATED GFR I S NOT APPLICABLE FOR DIALYSIS PATIEN TS. [id number] 18:12:00 Test Item Value Reference Range Interpretation Comments MAGNESIUM (BEAKER) 2.0 mg/dL 1.6-2.6 Specimen slightly (test code = 627) hemolyzed BASIC METABOLIC [id number] 18:12:00 Test Item Value Reference Range Interpretation [...] PATIEN TS. RAD, CHEST, 1 VIEW, NON [id number] 13:18:00Reason for exam:->recent pneumothorax, new trachShould this [...] Additional findings: None. Signed: JR Humberto, Jimmie MCGARRYepfarzanhe Verified Date/Time: 06/15/2018 13:18:45 Reading Location: [facility] C0[facility] Neuro Reading Room BLOOD GAS, [id number] 11:41:00 Test Item Value Reference Range Interpretation [...] hour post initaition of vent support \\R\\1015TROPONIN [id number] 09:49:00 Test Item Value Reference Range Interpretation [...] 66 pg/mL 0-100 (test code = 700) [id number] 09:29:00 Test Item Value Reference Range Interpretation [...] exclusion of thrombosis is within 95-100% range. [id number] 09:12:00 Test Item Value Reference Range Interpretation Comments FIBRINOGEN LEVEL (BEAKER) (test 621 mg/dl 225-434 H code = 658) [id number] 09:10:00 Test Item Value Reference Range Interpretation Comments PHOSPHORUS (BEAKER) (test code = 2.8 mg/dL 2.3-4.7 604) [id number] 09:10:00 Test Item Value Reference Range Interpretation Comments MAGNESIUM (BEAKER) (test code = 1.9 mg/dL 1.6-2.6 627) COMPREHENSIVE METABOLIC [id number] 09:10:00 Test Item Value Reference Range Interpretation [...] S NOT APPLICABLE FOR DIALYSIS PATIEN TS. [id number] 09:01:00 Test Item Value Reference Range Interpretation [...] for patients with mechanical heart valves.LACTIC ACID, [id number] 08:51:00 Test Item Value Reference Range Interpretation Comments LACTATE BLOOD 0.8 mmol/L 0.5-2.2 Specimen sligh tly ARTERIAL (2) (BEAKER) hemoly zed (test code = 2874) BLOOD GAS, [id number] 08:40:00 Test Item Value Reference Range Interpretation [...] (BEAKER) (test code = 1819) 80.0 % [id number] 08:00:00 Test Item Value Reference Range Interpretation Comments MAGNESIUM (BEAKER) (test code = 1.8 mg/dL 1.6-2.6 627) Add onCBC W/PLT COUNT & AUTO [id number] 06:45:00 Test Item Value Reference Range Interpretation [...] (BEAKER) (test code = 2801) BASIC METABOLIC [id number] 06:35:00 Test Item Value Reference Range Interpretation [...] PATIEN TS. RAD, CHEST, 1 VIEW, NON [id number] 05:10:00Reason for exam:->sob, tachypneaShould this be performed [...] Carrillo Verified Date/Time: 06/15/2018 05:10:33 Reading Location: [address] Transitional Reading Room POCT-LACTIC ACID, VENOUS 2018-06-15 04:30:00 Test Item Value Reference Range Interpretation Comments POC-LACTIC ACID, 1.1 mmol/L 0.9-1.[address] [facility] 6720 VENOUS (BEAKER) (test ALIYA [place]QUE[place] code = 2805) [address] URINALYSIS W/ REFLEX URINE [id number] 20:03:00 Test Item Value Reference Range Interpretation [...] = 2795) RAD, CHEST, 1 VIEW, NON [id number] 19:10:00Reason for exam:->SUSUPECTED INFECTIONShould this be performed [...] tube is stable in position. Signed: Mayra Garciaeport Verified Date/Time: 06/14/2018 19:10:10 Reading Location: [address] Reading Room CBC W/PLT COUNT & AUTO [id number] 04:36:00 Test Item Value Reference Range Interpretation [...] = 2801) RAD, CHEST, 1 VIEW, NON [id number] 04:13:00Reason for exam:->recent pneumothorax, new trachShould this [...] findings: None. Signed: Sridevi Carrillo Verified Date/Time: 06/14/2018 04:13:50 Reading Location: [address] Transitional Reading Room BLOOD GAS, [id number] 01:01:00 Test Item Value Reference Range Interpretation [...] (test code = 1819) 40.0 % POCT-GLUCOSE [id number] 05:32:00 Test Item Value Reference Range Interpretation Comments POC-GLUCOSE METER 92 mg/dL 70-110 TESTED AT [facility] 6720 (BEAKER) (test code = [place] [address] 1538) RAD, CHEST, 1 VIEW, NON [id number] 05:03:00Reason for exam:->evaluate for pneumo r/t CTShould [...] findings: None. Signed: Sridevi Carrillo Verified Date/Time: 06/13/2018 05:03:31 Reading Location: [address] Transitional Reading Room APTT 2018-06-13 04:22:00 Test Item Value Reference Range Interpretation Comments PARTIAL THROMBOPLASTIN TIME 27.4 seconds 22.5-36.0 (BEAKER) (test code = 760) PROTHROMBIN [id number] 04:21:00 Test Item Value Reference Range Interpretation Comments PROTIME (BEAKER) (test code = 13.8 seconds 11.7-14.7 759) INR (BEAKER) (test code = 370) 1.1 <=5.9 RECOMMENDED COUMADIN/WARFARIN INR THERAPY RANGESSTANDARD DOSE: 2.0 - 3.0 Includes: PROPHYLAXIS forvenous thrombosis, systemic embolization; TREATMENT for venous thrombosis and/or pulmonary embolus.HIGH RISK: Target INR is 2.5-3.5 for patients with mechanical heart valves.[id number] 04:20:00 Test Item Value Reference Range Interpretation Comments PHOSPHORUS (BEAKER) (test code = 3.1 mg/dL 2.3-4.7 604) [id number] 04:20:00 Test Item Value Reference Range Interpretation Comments MAGNESIUM (BEAKER) (test code = 2.0 mg/dL 1.6-2.6 627) BASIC METABOLIC [id number] 04:20:00 Test Item Value Reference Range Interpretation [...] PATIEN TS. CBC W/PLT COUNT & AUTO [id number] 04:14:00 Test Item Value Reference Range Interpretation [...] PERCENT (BEAKER) (test code = 2801) POCT-GLUCOSE [id number] 00:14:00 Test Item Value Reference Range Interpretation Comments POC-GLUCOSE METER 126 mg/dL 70-110 H TESTED AT [facility] 6720 (BEAKER) (test code = ALIYA Ruiz [facility] 1538) [address] RAD, CHEST, 1 VIEW, NON [id number] 12:29:00Reason for exam:->s/p[ L thoracocentesisFINAL REPORT CLINICAL HISTORY: s/p[ L thoracocentesis TECHNIQUE: 1 view of the chest. COMPARISON: 06/12/2018 IMPRESSION: A tracheostomy tube is again seen. There is no pneumothorax. Bibasilar atelectasis is again noted. There is no significant appearing pleural fluid. The cardiomediastinal silhouette is magnified by technique. Signed: Jacqueline Steele MDReport Verified Date/Time:06/12/2018 12:29:27 Reading Location: [address] Consult Reading Room POCT-GLUCOSE [id number] 12:10:00 Test Item Value Reference Range Interpretation Comments POC-GLUCOSE METER 194 mg/dL 70-110 H TESTED AT [facility] 6720 (ARCHIE) (test code = ALIYA MASON 1538) [address] CT, CHEST, WITH [id number] 10:26:00Premedicated for contrast allergy. 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 Signed: Randolph Gaviria MDReport Verified Date/Time: 06/12/2018 10:26:26 Reading Location: [facility] Diagnostic Imaging Reading Room - [place] [address] , SOFT TISSUE NECK, [id number] 09:53:00Premedicated for contrast allergy. With gneral anesthesia [...] imaging is available. Signed: JR Paul Robert MDReport Verified Date/Time: 06/12/2018 09:53:06 Reading Location: [address] Neuro Reading Room [id number] 06:00:00 Test Item Value Reference Range Interpretation Comments PHOSPHORUS (BEAKER) (test code = 2.9 mg/dL 2.3-4.7 604) [id number] 06:00:00 Test Item Value Reference Range Interpretation Comments MAGNESIUM (BEAKER) (test code = 2.1 mg/dL 1.6-2.6 627) BASIC METABOLIC [id number] 06:00:00 Test Item Value Reference Range Interpretation [...] NOT APPLICABLE FOR DIALYSIS PATIEN TS. POCT-GLUCOSE [id number] 05:44:00 Test Item Value Reference Range Interpretation Comments POC-GLUCOSE METER 157 mg/dL 70-110 H TESTED AT [facility] 6720 (BEAKER) (test code = ALIYA [place]QUE[place] 1538) [address] CBC W/PLT COUNT & AUTO [id number] 04:29:00 Test Item Value Reference Range Interpretation [...] = 2801) RAD, CHEST, 1 VIEW, NON [id number] 04:26:00Reason for exam:->evaluate for pneumo r/t CTShould this be performed at the bedside?->YesFINAL REPORT CLINICAL INDICATION: Support lines. Comparison: 06/10/2018 The cardiomediastinal contours are stable. The lung volumes remain low. The lateral pulmonary opacities are similar to previous within variation of acquisition technique. There is no pneumothorax. A tracheostomy tube is stable. Signed: Mayra Garcia MDReport Verified Date/Time: 06/12/2018 04:26:44 Reading Location: [address] Reading Room Electronically signed by: MAYRA GARCIA M.D. on06/12/2018 04:26 [id number] 04:02:00 Test Item Value Reference Range Interpretation Comments PARTIAL THROMBOPLASTIN TIME 29.1 seconds 22.5-36.0 (BEAKER) (test code = 760) PROTHROMBIN [id number] 04:01:00 Test Item Value Reference Range Interpretation Comments PROTIME (BEAKER) (test code = 13.4 seconds 11.7-14.7 759) INR (BEAKER) (test code = 370) 1.0 <=5.9 RECOMMENDED COUMADIN/WARFARIN INR THERAPY RANGESSTANDARD DOSE: 2.0 - 3.0 Includes: PROPHYLAXIS forvenous thrombosis, systemic embolization; TREATMENT for venous thrombosis and/or pulmonary embolus.HIGH RISK: Target INR is 2.5-3.5 for patients with mechanical heart valves.POCT-GLUCOSE [id number] 00:10:00 Test Item Value Reference Range Interpretation Comments POC-GLUCOSE METER 225 mg/dL 70-110 H TESTED AT [facility] 67 (BANNER) (test code = [facility] Ru[facility] [place] 1538) [address] POCT-GLUCOSE [id number] 06:14:00 Test Item Value Reference Range Interpretation Comments POC-GLUCOSE METER 129 mg/dL 70-110 H TESTED AT [place] [address] (BEAKER) (test code = [facility] 1538) [address] TSH/FREE T4 IF [id number] 04:46:00 Test Item Value Reference Range Interpretation Comments THYROID STIMULATING HORMONE 0.87 uIU/mL 0.35-4.94 (BEAKER) (test code = 772) CBC W/PLT COUNT & AUTO [id number] 04:30:00 Test Item Value Reference Range Interpretation Comments WHITE BLOOD CELL COUNT (BEAKER) 16.2 K/ L 3.5-10.5 H (test code = 775) RED BLOOD CELL COUNT (BEAKER) 4.01 M/ L 4.63-6.08 L (test code = 761) HEMOGLOBIN (BEAKER) (test code = 12.9 GM/DL 13.7-17.5 L 410) HEMATOCRIT (BEAKER) (test code = 41.0 % 40.1-51.0 411) MEAN CORPUSCULAR VOLUME (BEAKER) 102.2 fL 79.0-92.2 H (test code = [...] 0-1 PERCENT (BEAKER) (test code = 2801) [id number] 04:26:00 Test Item Value Reference Range Interpretation Comments PREALBUMIN (BEAKER) (test code = 25 mg/dL 14-45 586) [id number] 04:24:00 Test Item Value Reference Range Interpretation Comments PHOSPHORUS (BEAKER) (test code = 3.5 mg/dL 2.3-4.7 604) [id number] 04:24:00 Test Item Value Reference Range Interpretation Comments MAGNESIUM (BEAKER) (test code = 2.0 mg/dL 1.6-2.6 627) BASIC METABOLIC [id number] 04:24:00 Test Item Value Reference Range Interpretation [...] 358) GLUCOSE RANDOM 129 mg/dL 70-105 H (BANNER) (test code = 652) CALCIUM (BEAKER) 9.2 mg/dL 8.4-10.2 (test code = 697) EGFR (BEAKER) (test 127 mL/min/1.73 ESTIM ATED GFR IS code = 1092) sq m NOT ACCURATE CREATININE CLEARANCE IN PREDICTING GLOMERULAR FILTRATION RATE . ESTIMATED GFR I S NOT APPLICABLE FOR DIALYSIS PATIEN TS. PROTHROMBIN [id number] 04:19:00 Test Item Value Reference Range Interpretation Comments PROTIME (ARCHIE) (test code = 14.5 seconds 11.7-14.7 759) INR (BEELMO) (test code = 370) 1.1 <=5.9 RECOMMENDED COUMADIN/WARFARIN INR THERAPY RANGESSTANDARD DOSE: 2.0 - 3.0 Includes: PROPHYLAXIS forvenous thrombosis, systemic embolization; TREATMENT for venous thrombosis and/or pulmonary embolus.HIGH RISK: Target INR is 2.5-3.5 for patients with mechanical heart valves.[id number] 04:19:00 Test Item Value Reference Range Interpretation Comments PARTIAL THROMBOPLASTIN TIME 29.7 seconds 22.5-36.0 (BANNER) (test code = 760) POCT-GLUCOSE [id number] 01:04:00 Test Item Value Reference Range Interpretation Comments POC-GLUCOSE METER 128 mg/dL 70-110 H TESTED AT [place] [address] (BANNER) (test code = [facility] Sara [facility] 1538) [address] POCT-GLUCOSE [id number] 18:19:00 Test Item Value Reference Range Interpretation Comments POC-GLUCOSE METER 93 mg/dL 70-110 TESTED AT [place] [address] (BANNER) (test code = [facility] [address] 1538) POCT-GLUCOSE [id number] 11:44:00 Test Item Value Reference Range Interpretation Comments POC-GLUCOSE METER 87 mg/dL 70-110 TESTED AT [place] [address] (BANNER) (test code = [facility] [address] 1538) POCT-GLUCOSE [id number] 06:13:00 Test Item Value Reference Range Interpretation Comments POC-GLUCOSE METER 158 mg/dL 70-110 H TESTED AT [facility] 6720 (BEAKER) (test code = ALIYA [place]QUE[place] 1538) [address] BLOOD GAS, [id number] 04:53:00 Test Item Value Reference Range Interpretation [...] = 1818) RAD, CHEST, 1 VIEW, NON [id number] 04:42:00Reason for exam:->s/p tracheostomyShould this be performed [...] Carrillo Verified Date/Time: 06/10/2018 04:42:37 Reading Location: [address] Reading Room [id number] 04:29:00 Test Item Value Reference Range Interpretation Comments MAGNESIUM (BEAKER) 2.2 mg/dL 1.6-2.6 Specimen slightly (test code = 627) hemolyzed [id number] 04:29:00 Test Item Value Reference Range Interpretation Comments PHOSPHORUS (BEAKER) 3.7 mg/dL 2.3-4.7 Specimen slightly (test code = 604) hemolyzed BASIC METABOLIC [id number] 04:29:00 Test Item Value Reference Range Interpretation [...] S NOT APPLICABLE FOR DIALYSIS PATIEN TS. [id number] 04:18:00 Test Item Value Reference Range Interpretation Comments PARTIAL THROMBOPLASTIN TIME 24.5 seconds 22.5-36.0 (BEAKER) (test code = 760) PROTHROMBIN [id number] 04:17:00 Test Item Value Reference Range Interpretation [...] PERCENT (BEAKER) (test code = 2801) POCT-GLUCOSE [id number] 01:05:00 Test Item Value Reference Range Interpretation Comments POC-GLUCOSE METER 161 mg/dL 70-110 H TESTED AT [facility] 6720 (ARCHIE) (test code = ALIYA MARQUEZ [place] 1538) [address] RAD, CHEST, 1 VIEW, NON [id number] 22:19:00Reason for exam:->Laryngeal massShould this be performed [...] Morales Verified Date/Time: 06/09/2018 22:19:49 Reading Location: [facility] B1 C013W Consult Reading Room , CHEST, 1 VIEW, NON [id number] 20:37:00Reason for exam:->Laryngeal massShould this be performed [...] Morales Verified Date/Time: 06/09/2018 20:37:30 Reading Location: [facility] B1 C013W Consult Reading Room RAD, CHEST, 1 VIEW, NON [id number] 20:18:00Reason for exam:->Post-opShould this be performed at [...] findings: Osseous str uctures are unremarkable. Signed: Sridevi Carrillo Verified Date/Time: 06/09/2018 20:18:45 Reading Location: [address] Reading Room CBC W/PLT COUNT & AUTO [id number] 19:32:00 Test Item Value Reference Range Interpretation [...] = 3438) Received comment: User comments: Slide comments:[id number] 19:25:00 Test Item Value Reference Range Interpretation Comments PHOSPHORUS (BEAKER) (test code = 4.7 mg/dL 2.3-4.7 604) [id number] 19:25:00 Test Item Value Reference Range Interpretation Comments MAGNESIUM (BEAKER) (test code = 2.2 mg/dL 1.6-2.6 627) BASIC METABOLIC [id number] 19:25:00 Test Item Value Reference Range Interpretation [...] NOT APPLICABLE FOR DIALYSIS PATIEN TS. PROTHROMBIN [id number] 19:18:00 Test Item Value Reference Range Interpretation Comments PROTIME (BEAKER) (test code = 13.0 seconds 11.7-14.7 759) INR (BEAKER) (test code = 370) 1.0 <=5.9 RECOMMENDED COUMADIN/WARFARIN INR THERAPY RANGESSTANDARD DOSE: 2.0 - 3.0 Includes: PROPHYLAXIS forvenous thrombosis, systemic embolization; TREATMENT for venous thrombosis and/or pulmonary embolus.HIGH RISK: Target INR is 2.5-3.5 for patients with mechanical heart valves.[id number] 19:18:00 Test Item Value Reference Range Interpretation Comments PARTIAL THROMBOPLASTIN TIME 24.0 seconds 22.5-36.0 (BEAKER) (test code = 760) [id number] 12:47:00 Test Item Value Reference Range Interpretation Comments HEMOGLOBIN (BEAKER) (test code = 15.7 GM/DL 13.7-17.5 410) PLATELET [id number] 12:47:00 Test Item Value Reference Range Interpretation Comments PLATELET COUNT (BEAKER) (test 203 K/CU MM 150-450 code = 756)
[2021-02-15] MEDS ORDERED: CEFEPIME 1 GM/VIAL ONE (20:06)
[2021-02-15] MEDS ORDERED: NA CHLORIDE 0.9% 1,000 ML ONE (20:06)
[2021-02-15] MEDS ORDERED: FAMOTIDINE 20 MG/2 ML VIAL IV ONE (20:06)
[2021-02-15] MEDS ORDERED: NA CHLORIDE 0.9% 100 ML ONE (20:06)
[2021-02-15 20:30] LABS: Basophils % 0.4 % (0-1.3); Hematocrit 32.3 % (39.6-49.0); Lymphocytes % 10.9 % (15.3-44.8); MPV 7.8 fL (7.6-11.3); RBC Red Blood Cell Count 3.49 M/uL (4.33-5.43)
[2021-02-15 20:45] LABS: ALT/SGPT 13 U/L (12-78); AST/SGOT 8 U/L (15-37); Albumin 2.6 g/dL (3.4-5.0); Alkaline Phosphatase 140 U/L (45-117); BUN Blood Urea Nitrogen 5 mg/dL (7-18); Bicarbonate 25 mmol/L (21-32); Bilirubin Direct 0.2 mg/dL (0-0.2); Bilirubin Total 0.6 mg/dL (0.2-1.0); Glucose Level 84 mg/dL (74-106); NT PRO-BNP 287 pg/mL (<125); Potassium 3.3 mmol/L (3.5-5.1); Protein, Total 7.2 g/dL (6.4-8.2); Sodium Level 139 mmol/L (136-145); Troponin (Emerg Dept Use Only) < 0.02 ng/mL (0.0-0.045)
[2021-02-15] MEDS ORDERED: ONDANSETRON 4 MG/2 ML VIAL ONE (21:02)
[2021-02-15] MEDS ORDERED: POTASSIUM 25 MEQ EFFERV TAB ONE (21:02)
[2021-02-15] MEDS ORDERED: VANCOMYCIN 1 GM/VIAL ONE (21:02)
[2021-02-15] MEDS ORDERED: MORPHINE 2 MG/ML SYR ONE ×2 (21:02→23:14)
[2021-02-15] MEDS ORDERED: NA CHLORIDE 0.9% 250 ML ONE (21:03)
[2021-02-15 21:10] LABS: Protime INR 1.11
--- NOTE | 2021-02-15 21:13 | RAD REPORT ---
EXAM DESCRIPTION: CT - Soft Tissue Neck Wo Contr - 02/15/2021 8:18 pm CLINICAL HISTORY: CONGESTION COMPARISON: Soft Tissue Neck Wo Contr dated 04/08/2019; Thorax Wo Con dated 02/15/2021 TECHNIQUE: Axial 3 millimeter noncontrast images of the neck obtained. All CT scans are performed using dose optimization technique as appropriate and may include automated exposure control or mA/KV adjustment according to patient size. FINDINGS: Intracranial portion is unremarkable. Mastoid air cells are clear. No globe or orbital con tent abnormality identified. No pharyngeal mass or asymmetry identifiable. Tracheostomy is in place. Laryngectomy has been perform ed. There are numerous surgical clips in the neck. Few small nonspecific neck and submental lymph nod es are present. No bulky lymphadenopathy or mass. Stranding and edema seen in the 2019 comparison has resolved. Carotid calcifications are present. No tongue base mass or floor the mouth suspicious find ing. Cervical spine degenerative changes are present. Congenitally small central canal is present with mul tiple levels showing spinal stenosis. This is most notable at the C5-6 level. IMPRESSION: No mass, abscess, lymphadenopathy or other suspicious finding. Nonacute findings detailed in the body of the report.
--- NOTE | 2021-02-15 21:15 | RAD REPORT ---
EXAM DESCRIPTION: CT - Thorax Wo Con - 02/15/2021 8:18 pm CLINICAL HISTORY: SWELLING COMPARISON: Thorax W/ Con dated 02/08/2019 TECHNIQUE: Axial 5 mm thick images of the chest were obtained without IV contrast. All CT scans are performed using dose optimization technique as appropriate and may include automated exposure control or mA/KV adjustment according to patient size. FINDINGS: No mass or infiltrate in the lung parenchyma. No pleural thickening or pleural effusion. N o pneumothorax. No abnormal mediastinal or hilar masses or lymphadenopathy seen. Tracheostomy has been performed appe ars well healed. No suspicious mass or inflammatory changes in soft tissues. No abnormal lymphadenopa thy seen. No cardiomegaly or pericardial effusion. No chest wall mass or abnormal axillary lymphadenopathy. IMPRESSION: Negative non-contrast CT chest examination for acute suspicious finding.
--- NOTE | 2021-02-15 21:15 | RAD REPORT ---
EXAM DESCRIPTION: RAD - Chest Single View - 02/15/2021 8:28 pm CLINICAL HISTORY: COUGH COMPARISON: September 29 TECHNIQUE: AP portable chest image was obtained 02/15/2021 8:28 pm . FINDINGS: Lungs are clear. Heart and vasculature are normal. No measurable pleural effusion and no p neumothorax. No acute bony abnormality seen. No acute aortic findings suspected. IMPRESSION: No acute cardiopulmonary process. No significant change from comparison study.
--- NOTE | 2021-02-15 21:16 | RAD REPORT ---
EXAM DESCRIPTION: US - Extrem Venous W Compress Db - 02/15/2021 9:05 pm CLINICAL HISTORY: Pain;Swelling COMPARISON: None. TECHNIQUE: Real-time sonographic evaluation of the bilateral lower extremity common femoral, superfi cial femoral, popliteal and posterior tibial veins was performed. FINDINGS: Normal compressibility, flow augmentation, phasic flow and spontaneous flow are identified in the left and right lower extremity common femoral, superficial femoral, popliteal and posterior t ibial veins. No intraluminal filling defects seen. IMPRESSION: No DVT in either lower extremity.
--- NOTE | 2021-02-15 21:21 | ER ---
Nurse's Notes 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 THROAT bp AND CHEST PAIN THIS MORNING. Coronavirus screen: At this time, the client does not indicate any symptoms associated with coronavirus-19. Ebola Screen: No symptoms or risks identified at this time. Initial Sepsis Screen: Does the patient meet any 2 criteria? No. Patient's initial sepsis screen is negative. Does the patient have a suspected source of infection? No. Patient's initial sepsis screen is negative. Risk Assessment: Do you want to hurt yourself or someone else? Patient reports no desire to harm self or others. Onset of symptoms is unknown. 18:45 Method Of Arrival: Ambulatory bp 18:45 Acuity: PAO 3 bp Triage Assessment: 18:48 General: Appears distressed, uncomfortable, unkempt, malnourished, Behavior is bp appropriate for age, agitated, anxious. Pain: Complains of pain in chest, right leg, left leg and neck. EENT: Throat OPEN TRACHEOSTOMY. Neuro: Level of Consciousness is awake, alert, obeys commands, Oriented to Appropriate for age. Cardiovascular: Rhythm is sinus rhythm. Respiratory: No deficits noted. GI: No signs and/or symptoms were reported involving the gastrointestinal system. : No signs and/or symptoms were reported regarding the genitourinary system. Derm: Rash noted that is red, on right christian and left christian. Musculoskeletal: Swelling present in right christian and left christian. Historical: - Allergies: 18:48 Levaquin; bp 18:48 Iodine; bp 18:48 Iodinated Contrast Media - IV Dye; bp 18:48 Ampicillin; bp - Home Meds: 18:48 escitalopram oxalate Oral [Active]; Levoxyl Oral [Active]; bp - PMHx: 18:48 THROAT CA; COPD; Asthma; bp - Immunization history:: Adult Immunizations up to date, Client reports receiving the 2nd dose of the Covid vaccine. - Social history:: Smoking status: Patient reports the use of cigarette tobacco products, unknown amount. Screenin:52 Abuse screen: Denies threats or abuse. Denies injuries from another. Nutritional bp screening: No deficits noted. Tuberculosis screening: No symptoms or risk factors identified. Fall Risk None identified. Assessment: 18:45 General: SEE TRIAGE NOTE . bp 19:30 General: Appears in no apparent distress. uncomfortable, slender, Behavior is calm, bb cooperative. Pain: Complains of pain in chest, bilateral lower legs Pain does not radiate. Pain began gradually. Neuro: Level of Consciousness is awake, alert, obeys commands, Oriented to person, place, time, situation. Cardiovascular: Capillary refill < 3 seconds Patient's skin is warm and dry. Respiratory: Respiratory effort is even, unlabored, Respiratory pattern is regular, pt has large open tracheostomy to neck communicates in writing. GI: No signs and/or symptoms were reported involving the gastrointestinal system. Derm: Derm: pt has scattered sores over bilateral lower legs with erythema. 20:10 Reassessment: pt to CT scan via wheelchair accompanied by polysomnographic tech. bb 20:30 Musculoskeletal: Circulation, motion, and sensation intact. bb 22:30 Reassessment: No changes from previously documented assessment. Patient and/or family lc1 updated on plan of care and expected duration. Pain level reassessed. received report from Shaina, patient resting in bed, vancomycin infusing, call alba within reach . Vital Signs: 18:45 BP 141 / 86; Pulse 77; Resp 19; Pulse Ox 100% ; bp 21:11 BP 145 / 91; Pulse 80; Resp 18 S; Pulse Ox 100% on R/A; bb 22:30 BP 150 / 94; Pulse 74; Resp 18; Pulse Ox 93% on R/A; lc1 23:33 BP 145 / 91; Pulse 89; Resp 18; Pulse Ox 100% on R/A; lc1 02/16 00:15 BP 136 / 91; Pulse 87; Resp 18; Pulse Ox 99% on R/A; lc1 ED Course: 02/15 18:35 Patient arrived in ED. as 18:45 Turner Nickerson, RN is Primary Nurse. bp 18:47 Triage completed. bp 18:48 Arm band placed on. bp 18:52 Patient has correct armband on for positive identification. engine monitor on. Pulse bp ox on. NIBP on. 19:15 Ren Bruner MD is Attending Physician. kishan 20:10 Inserted saline lock: 22 gauge in right wrist, using aseptic technique. Blood collected.ds4 20:18 CT Chest Wo Con In Process Unspecified. EDMS 20:18 Soft Tissue Neck Wo Contr In Process Unspecified. EDMS 20:27 XRAY Chest (1 view) In Process Unspecified. EDMS 20:45 Inserted saline lock: 20 gauge in left antecubital area, using aseptic technique. Blood bb collected. 21:00 Second set of blood cultures drawn by AVTAR morales swab sent to lab. bb 21:05 US Extremity Venous W Compression Db In Process Unspecified. EDMS 21:14 Sara Vilchis MD is Hospitalizing Provider. kishan 22:30 No apparent distress. Awaiting bed assignment. lc1 22:30 No provider procedures requiring assistance completed. Patient admitted, IV remains in lc1 place. Patient maintains SpO2 saturation greater than 95% on room air. Administered Medications: 20:33 Drug: NS 0.9% 500 ml Route: IV; Rate: bolus; Site: right forearm; bb 21:40 Follow up: IV Status: Completed infusion; IV Intake: 500ml bb 20:38 Drug: Pepcid (famotidine) 20 mg Route: IVP; Site: right forearm; bb 21:17 Follow up: Response: No adverse reaction bb 21:01 Drug: Cefepime 1 grams Route: IVPB; Rate: 200 ml/hr; Infused Over: 30 mins; Site: right bb forearm; 21:40 Follow up: IV Status: Completed infusion; IV Intake: 100ml bb 21:05 Drug: Zofran (Ondansetron) 4 mg Route: IVP; Site: right forearm; bb 23:11 Follow up: Response: No adverse reaction lc1 21:07 Drug: morphine 2 mg {Note: RASS 0.} Route: IVP; Site: right forearm; bb 21:16 Drug: Potassium Effervescent Tablet 25 mEq Route: PO; bb 23:11 Follow up: Response: No adverse reaction 1 21:40 Drug: NS 0.9% 1000 ml Route: IV; Rate: 125 ml/hr; Site: right forearm; bb 23:32 Follow up: IV Status: Infusion continued upon admission [facility] 21:40 Drug: vancoMYCIN 1 grams Route: IVPB; Infused Over: 2 hrs; Site: right forearm; bb 23:32 Follow up: Response: No adverse reaction; IV Status: Completed infusion lc1 23:17 Drug: morphine 2 mg Route: IVP; Site: right forearm; [facility] 23:26 Follow up: Response: Pain is decreased [facility] Intake: 21:40 IV: 100ml; Total: 100ml. bb 21:40 IV: 500ml; Total: 600ml. bb Outcome: 21:20 Decision to Hospitalize by Provider. kishan 23:31 Condition: stable [facility] 23:31 Instructed on the need for admit. 02/16 00:24 Admitted to Med/surg accompanied by tech, via wheelchair, room 208, Report called to [facility] [place] 00:36 Patient left the ED. [facility] Signatures: Dispatcher [employer] EDMS Ren Bruner MD MD cha Martinez, Amelia as Ballard, Brenda, RN RN Marisa Davies [facility] Rudy Young ds4 Turner Nickerson, JEAN RN bp Corrections: (The following items were deleted from the chart) 02/15 18:52 18:45 Pulse 77bpm; Resp 19bpm; Pulse Ox 100%; bp bp 20:32 19:30 Respiratory: Respiratory effort is even, unlabored, Respiratory pattern is bb regular, bb 20:32 19:30 Derm: bb bb
--- NOTE | 2021-02-15 21:21 | EDPHYS ---
Physician Documentation [facility] Name: Akin Pugh Age: 50 yrs Sex: Male : 1970 Arrival Date: 02/15/2021 Time: 18:35 Bed 13 Private MD: ALEJANDRA Physician Ren Bruner HPI: 02/15 19:45 This 50 yrs old Male presents to ER via Ambulatory with complaints of Chest kishan Pain, Neck Problem - infection, Leg Swelling, Feet Swelling. Historical: - Allergies: 18:48 Levaquin; bp 18:48 Iodine; bp 18:48 Iodinated Contrast Media - IV Dye; bp 18:48 Ampicillin; bp - Home Meds: 18:48 escitalopram oxalate Oral [Active]; Levoxyl Oral [Active]; bp - PMHx: 18:48 THROAT CA; COPD; Asthma; bp - Immunization history:: Adult Immunizations up to date, Client reports receiving the 2nd dose of the Covid vaccine. - Social history:: Smoking status: Patient reports the use of cigarette tobacco products, unknown amount. ROS: 19:46 Constitutional: Negative for fever, chills, and weight loss, Eyes: Negative for injury, kishan pain, redness, and discharge, Neck: Negative for injury, pain, and swelling, Cardiovascular: Negative for chest pain, palpitations, and edema, Abdomen/GI: Negative for abdominal pain, nausea, vomiting, diarrhea, and constipation, Back: Negative for injury and pain, : Negative for injury, bleeding, discharge, and swelling, Neuro: Negative for headache, weakness, numbness, tingling, and seizure, Psych: Negative for depression, anxiety, suicide ideation, homicidal ideation, and hallucinations, Allergy/Immunology: Negative for hives, rash, and allergies, Endocrine: Negative for neck swelling, polydipsia, polyuria, polyphagia, and marked weight changes, Hematologic/Lymphatic: Negative for swollen nodes, abnormal bleeding, and unusual bruising. 19:46 ENT: Positive for foreign body sensation. 19:46 Respiratory: Positive for cough, "sounds productive", shortness of breath, at rest. 19:46 MS/extremity: Positive for ecchymosis, pain, swelling, tenderness, of the right leg and left leg. Exam: 19:46 Constitutional: This is a well developed, well nourished patient who is awake, alert, kishan and in no acute distress. Head/Face: Normocephalic, atraumatic. Eyes: Pupils equal round and reactive to light, extra-ocular motions intact. Lids and lashes normal. Conjunctiva and sclera are non-icteric and not injected. Cornea within normal limits. Periorbital areas with no swelling, redness, or edema. Neck: Trachea midline, no thyromegaly or masses palpated, and no cervical lymphadenopathy. Supple, full range of motion without nuchal rigidity, or vertebral point tenderness. No Meningismus. Chest/axilla: Normal chest wall appearance and motion. Nontender with no deformity. No lesions are appreciated. Cardiovascular: Regular rate and rhythm with a normal S1 and S2. No gallops, murmurs, or rubs. Normal PMI, no JVD. No pulse deficits. Abdomen/GI: Soft, non-tender, with normal bowel sounds. No distension or tympany. No guarding or rebound. No evidence of tenderness throughout. Back: No spinal tenderness. No costovertebral tenderness. Full range of motion. Male : Normal genitalia with no discharge or lesions. Neuro: Awake and alert, GCS 15, oriented to person, place, time, and situation. Cranial nerves II-XII grossly intact. Motor strength 5/5 in all extremities. Sensory grossly intact. Cerebellar exam normal. Normal gait. Psych: Awake, alert, with orientation to person, place and time. Behavior, mood, and affect are within normal limits. 19:46 ENT: Posterior pharynx: swelling, that is mild, erythema, that is mild. 19:46 Respiratory: the patient does not display signs of respiratory distress, Respirations: no acute changes, Breath sounds: bronchial sounds, rhonchi, that are mild, stridor, is not appreciated. Vital Signs: 18:45 BP 141 / 86; Pulse 77; Resp 19; Pulse Ox 100% ; bp 21:11 BP 145 / 91; Pulse 80; Resp 18 S; Pulse Ox 100% on R/A; bb 22:30 BP 150 / 94; Pulse 74; Resp 18; Pulse Ox 93% on R/A; lc1 23:33 BP 145 / 91; Pulse 89; Resp 18; Pulse Ox 100% on R/A; lc1 02/16 00:15 BP 136 / 91; Pulse 87; Resp 18; Pulse Ox 99% on R/A; lc1 MDM: 02/15 19:15 Patient medically screened. kishan 19:50 HEART Score: History: Slightly Suspicious (0), ECG: Normal (0), Age: > 45 and < 65 kishan years (1), Risk Factors: 1 or 2 risk factors (1), [Hypertension] [+ Family HX] Troponin: < or = 1 x Normal Limit (0). The patient was not given aspirin in the Emergency Department. Not indicated due to patient's past medical history. The patient's deep vein thrombosis risk score was calculated as follows: Total Score: 1 to 2 points. This patient was found to be at moderate risk for a deep vein thrombosis by using the Well's assessment criteria. The patient's pulmonary embolism risk score was calculated as follows: Total Score: 0-2 points. This patient was found to be at low risk for a pulmonary embolism by using the Well's assessment criteria. ALEXEY Risk Score: TOTAL SCORE = 0. Data reviewed: vital signs, nurses notes, lab test result(s), EKG, radiologic studies, CT scan, plain films. Data interpreted: quality assurance monitor final: rate is 77 beats/min, rhythm is regular, Pulse oximetry: is not applicable for this patient encounter. on room air. Test interpretation: by ED physician or midlevel provider: ECG, plain radiologic studies. Counseling: I had a detailed discussion with the patient and/or guardian regarding: the historical points, exam findings, and any diagnostic results supporting the discharge/admit diagnosis, lab results, radiology results, the need for further work-up and treatment in the hospital. 02/15 19:42 Order name: Basic Metabolic Panel [facility] 02/15 19:42 Order name: CBC with Diff 02/15 19:42 Order name: LFT's [facility] 02/15 19:42 Order name: Magnesium; Complete Time: 20:51 [facility] 02/15 19:42 Order name: NT PRO-BNP; Complete Time: 20:51 [facility] 02/15 19:42 Order name: PT-INR [facility] 02/15 19:42 Order name: Troponin (emerg Dept Use Only); Complete Time: 20:51 02/15 19:42 Order name: Lactate [facility] 02/15 19:42 Order name: Procalcitonin [facility] 02/15 19:42 Order name: Blood Culture Adult (2) [facility] 02/15 19:42 Order name: SARS-COV-2 RT PCR (Document "Date of Onset" if Symptomatic) [facility] 02/15 19:43 Order name: Basic Metabolic Panel; Complete Time: 20:51 [facility] 02/15 19:43 Order name: CBC with Automated Diff; Complete Time: 20:51 [facility] 02/15 19:42 Order name: XRAY Chest (1 view) [facility] 02/15 19:42 Order name: EKG; Complete Time: 19:43 [facility] 02/15 19:42 Order name: CT Chest Wo Con [facility] 02/15 19:43 Order name: Liver (Hepatic) Function; Complete Time: 20:51 [facility] 02/15 19:46 Order name: US Extremity Venous W Compression Db [facility] 02/15 19:52 Order name: Soft Tissue Neck Wo Contr [facility] 02/15 20:37 Order name: Sedimentation Rate, Westergren [facility] 02/15 19:42 Order name: Cardiac monitoring; Complete Time: 19:54 [facility] 02/15 19:42 Order name: EKG - Nurse/Tech; Complete Time: 19:54 [facility] 02/15 19:42 Order name: IV Saline Lock; Complete Time: 20:15 [facility] 02/15 19:42 Order name: Labs collected and sent; Complete Time: 20:15 [facility] 02/15 19:42 Order name: O2 Per Protocol; Complete Time: 19:51 [facility] 02/15 19:42 Order name: O2 Sat Monitoring; Complete Time: 19:51 [facility] 02/15 22:57 Order name: CONS Physician Consult EDFL Administered Medications: 20:33 Drug: NS 0.9% 500 ml Route: IV; Rate: bolus; Site: right forearm; bb 21:40 Follow up: IV Status: Completed infusion; IV Intake: 500ml bb 20:38 Drug: Pepcid (famotidine) 20 mg Route: IVP; Site: right forearm; bb 21:17 Follow up: Response: No adverse reaction bb 21:01 Drug: Cefepime 1 grams Route: IVPB; Rate: 200 ml/hr; Infused Over: 30 mins; Site: right bb forearm; 21:40 Follow up: IV Status: Completed infusion; IV Intake: 100ml bb 21:05 Drug: Zofran (Ondansetron) 4 mg Route: IVP; Site: right forearm; bb 23:11 Follow up: Response: No adverse reaction lc1 21:07 Drug: morphine 2 mg {Note: RASS 0.} Route: IVP; Site: right forearm; bb 21:16 Drug: Potassium Effervescent Tablet 25 mEq Route: PO; bb 23:11 Follow up: Response: No adverse reaction lc1 21:40 Drug: NS 0.9% 1000 ml Route: IV; Rate: 125 ml/hr; Site: right forearm; bb 23:32 Follow up: IV Status: Infusion continued upon admission lc1 21:40 Drug: vancoMYCIN 1 grams Route: IVPB; Infused Over: 2 hrs; Site: right forearm; bb 23:32 Follow up: Response: No adverse reaction; IV Status: Completed infusion lc1 23:17 Drug: morphine 2 mg Route: IVP; Site: right forearm; lc1 23:26 Follow up: Response: Pain is decreased lc1 Disposition Summary: 02/15/21 21:20 Hospitalization Ordered Hospitalization Status: Observation kishan Provider: Sara Vilchis cha Location: Telemetry/MedSurg (observation) kishan Condition: Stable kishan Problem: new kishan Symptoms: have improved kishan Bed/Room Type: Standard kishan Room Assignment: 208(02/15/21 23:26) cg Diagnosis - Vasculitis limited to the skin, unspecified kishan - Hypokalemia kishan - COPD/ Chronic obstructive pulmonary disease, unspecified - S/P laryngectomy kishan - Lymphedema, not elsewhere classified kishan Forms: - Medication Reconciliation Form kishan - SBAR form kishan Signatures: Dispatcher [employer] EDRen Pereira MD MD cha Ballard, Brenda, RN RN bb Calhoun, Lisa 1 Lima Dahl RN RN Turner Nickerson RN RN bp Corrections: (The following items were deleted from the chart) 19:52 19:43 Neck Angio+CT.RAD.BRZ ordered. EDMS EDMS 20:34 19:43 WESTERGREN SEDRATE+H.LAB.BRZ ordered. EDMS EDMS 23:26 21:20 kishan cg
--- NOTE | 2021-02-16 00:02 | P.HP ---
Certification for Inpatient Patient admitted to: Inpatient With expected LOS: <2 Midnights Patient will require the following post-hospital care: None Practitioner: I am a practitioner with admitting privileges, knowledge of patient current condition, hospital course, and medical plan of care. Services: Services provided to patient in accordance with Admission requirements found in Title 42 Section 412.3 of the Code of Federal Regulations Patient History Date of Service: 02/15/21 Reason for admission: trach infection, vasculitis History of Present Illness: Mr. Pugh is a 50 yo M with throat ca s/p laryngectomy, COPD, asthma who presents with 2 weeks of increased erythema, warmth and pain at his trach site. He says that there is a hair fungus and parasite infection inside of his throat. He reports cough. He denies fever, nausea and vomiting. He also reports edeman and pain in his legs for the past two weeks. He says his legs feel like they are on fire, describes a throbbing pain with no relief. K 3.3. Allergies levofloxacin [From Levaquin] Allergy (Severe, Verified 10/01/20 07:25) Itching/Hives/Rash ampicillin Allergy (Verified 10/01/20 07:25) Itching/Hives/Rash iodine Allergy (Verified 10/01/20 07:25) Hives/Rash Home Medications: Escitalopram [Lexapro*] 20 mg PO DAILY 05/27/18 Levothyroxine Sodium [Levoxyl] 125 mcg PO Q48H 08/31/20 Lipase/Protease/Amylase [Chucho Dr 12,000 Units Capsule] 1 tab PO TIDWM 08/31/20 Pantoprazole [Protonix Tab*] 40 mg PO BID #60 tab 09/13/20 Albuterol Inhaler [Ventolin Inhaler*] 2 puff IH QIDP PRN 09/29/20 Amlodipine [Norvasc*] 10 mg PO DAILY 09/29/20 Aspirin [Aspirin EC] 81 mg PO DAILY 09/29/20 Atorvastatin Calcium [Lipitor] 80 mg PO DAILY 09/29/20 Clopidogrel Bisulfate [Plavix*] 75 mg PO DAILY 09/29/20 Dicyclomine HCl 10 mg PO QID 09/29/20 Ferrous Sulfate [Ferrous Sulfate Elixir*] 5 ml PO BID 09/29/20 Folic Acid 1 mg PO DAILY 09/29/20 Gabapentin [Neurontin*] 100 mg PO QID 09/29/20 Lipase/Protease/Amylase [[place]ucho Falcon 12,000 Unit Capsule] 1 each PO BEDTIME PRN PRN 09/29/20 Melatonin [Melatonin*] 6 mg PO BEDTIME 09/29/20 Metoclopramide [Reglan*] 5 mg PO ACHS 09/29/20 traMADol HCL [Ultram*] 50 mg PO Q4HP PRN 09/29/20 Cefdinir [Omnicef] 300 mg PO BID #14 capsule 10/02/20 Hydrocodone 10/APAP 325 [Kennedy 10/325*] 1 tab PO Q4HP PRN #42 tab 10/02/20 - Past Medical/Surgical History Diabetic: No -: Asthma -: Depression -: Throat cancer status post complete laryngectomy/reconstruction 06/2018 -: Recurrent postop infection -: Chronic pain -: Former tobacco use -: Surgical hypothyroidism -: neuropathy -: Tracheostomy -: Appendectomy -: Complete laryngectomy with reconstruction -: knee surgery bilateral knees -: Thyroidectomy Psychosocial/ Personal History: Patient is . He has 3 children. - Family History Father -: Heart disease, Diabetes Notes: agent orange: immobile Mother -: Cancer Notes: breast ca - Social History Smoking Status: Former smoker Alcohol use: No CD- Drugs: No Caffeine use: Yes Place of Residence: Home Review of Systems General: Unremarkable Eyes: Unremarkable ENT: Throat Pain, Throat Swelling, As per HPI Respiratory: Cough, As per HPI Cardiovascular: Unremarkable Gastrointestinal: Unremarkable Genitourinary: Unremarkable Musculoskeletal: Neck Pain, Leg Pain, As per HPI Integumentary: Rash, As per HPI Neurological: Unremarkable Lymphatics: Unremarkable Physical Examination - Physical Exam General: Alert, In no apparent distress HEENT: Atraumatic, PERRLA, Mucous membr. moist/pink, EOMI, Sclerae nonicteric Neck: Supple, 2+ carotid pulse no bruit, No LAD, Other (trach site appears erythematous, warm to touch), Without JVD or thyroid abnormality Respiratory: Diminished Cardiovascular: Regular rate/rhythm, Normal S1 S2, Edema Gastrointestinal: Normal bowel sounds, No tenderness Musculoskeletal: No tenderness Integumentary: Rash(es), Tenderness/swelling, Erythema Neurological: Normal strength at 5/5 x4 extr, Normal tone, Sensation intact, Normal affect, Abnormal speech Lymphatics: No axilla or inguinal lymphadenopathy - Studies Laboratory Data (last 24 hrs) 02/15/21 20:46: PT 12.8 H, INR 1.11 02/15/21 20:10: WBC 9.30, Hgb 10.7 L, Hct 32.3 L, Plt Count 336 02/15/21 20:10: Sodium 139, Potassium 3.3 L, BUN 5 L, Creatinine 0.56, Glucose 84, Magnesium 2.0, Total Bilirubin 0.6, AST 8 L, ALT 13, Alkaline Phosphatase 140 H Assessment and Plan - Problems (Diagnosis) (1) Vasculitis Current Visit: Yes Status: Acute (2) Cellulitis of neck Current Visit: No Status: Acute (3) Asthma Onset Date: 07/15/17 Current Visit: No Status: Chronic Qualifiers: Asthma severity: mild Asthma persistence: intermittent Asthma complication type: uncomplicated Qualified Code(s): J45.20 - Mild intermittent asthma, uncomplicated (4) COPD (chronic obstructive pulmonary disease) Onset Date: 10/14/17 Current Visit: No Status: Chronic Qualifiers: (5) History of laryngeal cancer Current Visit: No Status: Chronic - Plan consult ENT continue IV antibiotics and IV steroids pain management as needed BP stable, continue to monitor, hydralazine PRN for BP spikes anemia workup pending reconcile and continue home medications DVT ppx Discharge Plan: Home Plan to discharge in: 48 Hours - Advance Directives Does patient have a Living Will: No Does patient have a Durable POA for Healthcare: Yes - Code Status/Comfort Care Code Status Assessed: Yes (full code ) Critical Care: No Time Spent Managing Pts Care (In Minutes): 70
[2021-02-16] MEDS ORDERED: HYDRALAZINE HCL 20 MG/ML VIAL IV PRN (00:14)
[2021-02-16] MEDS ORDERED: ACETAMINOPHEN 500 MG TAB PO PRN (00:14)
[2021-02-16] MEDS: METHYLPREDNISOLONE 40 MG INJ IV SCH ×3 (00:57→12:59)
[2021-02-16] MEDS: MORPHINE 2 MG/ML SYR IV PRN ×3 (00:58→09:39)
[2021-02-16] MEDS ORDERED: ONDANSETRON 4 MG/2 ML VIAL IV PRN (03:00)
[2021-02-16 06:05] LABS: Absolute Lymphocytes (CBC) 0.2 K/uL (0.7-4.9); Basophils % 0.2 % (0-1.3); Hematocrit 35.1 % (39.6-49.0); Lymphocytes % 2.4 % (15.3-44.8); RBC Red Blood Cell Count 3.76 M/uL (4.33-5.43)
[2021-02-16 06:12] LABS: Barbiturates NEGATIVE (NEGATIVE); Benzodiazepines NEGATIVE (NEGATIVE); Cocaine NEGATIVE (NEGATIVE); METHAMPHETAM POSITIVE (NEGATIVE); Methadone NEGATIVE (NEGATIVE); Opiates NEGATIVE (NEGATIVE); Phencyclidine NEGATIVE (NEGATIVE); THC Cannibis NEGATIVE (NEGATIVE)
[2021-02-16 06:47] LABS: ALT/SGPT 12 U/L (12-78); AST/SGOT 13 U/L (15-37); Albumin 2.5 g/dL (3.4-5.0); Alkaline Phosphatase 185 U/L (45-117); BUN Blood Urea Nitrogen 4 mg/dL (7-18); Bicarbonate 27 mmol/L (21-32); Bilirubin Total 0.6 mg/dL (0.2-1.0); Folic Acid, (Folate) 4.8 ng/mL (3.1-17.5); Glucose Level 130 mg/dL (74-106); HDL Cholesterol 56 mg/dL (40-60); LDL Cholesterol, Calculated 62 (<130); Magnesium 1.8 mg/dL (1.8-2.4); Phosphorus 3.7 mg/dL (2.5-4.9); Potassium 3.4 mmol/L (3.5-5.1); Protein, Total 7.3 g/dL (6.4-8.2); Sodium Level 138 mmol/L (136-145); Transferrin 213 mg/dL (200-360)
[2021-02-16 08:03] VITALS: BMI 22.5
[2021-02-16] MEDS ORDERED: Pharmacy Consult 1 EA XX PRN (09:00)
[2021-02-16] MEDS ORDERED: ENOXAPARIN 40 MG/0.4 ML SQ SCH (09:00)
[2021-02-16] MEDS ORDERED: VANCOMYCIN 1.25 GM in NA CHLORIDE 0.9% 250 ML IVPB SCH (09:00)
[2021-02-16] MEDS ORDERED: CEFEPIME 2 GM VIAL IV SCH (09:00)
[2021-02-16] MEDS ORDERED: CEFEPIME 2 GM in NA CHLORIDE 0.9% 100 ML IV SCH (09:00)
[2021-02-16 09:38] LABS: Blood Morphology Comment NOT SEEN (NOT SEEN); Platelet Estimate ADEQ; White Blood Cell Scan OK (OK)
[2021-02-16] MEDS ORDERED: ESCITALOPRAM 20 MG TAB PO SCH (12:17)
[2021-02-16] MEDS ORDERED: HYDROCODONE/APAP 10/325 TAB PO PRN (12:17)
[2021-02-16] MEDS ORDERED: LIPASE/PROTEASE/AMYLASE CAP PO PRN (12:17)
--- NOTE | 2021-02-16 12:33 | P.PN ---
Date of Service: 02/16/21 ENT Consultation-- please see dictated H&P Impression: 1. Tracheobronchitis Plan: 1. Continue antibiotics-- can convert to doxycycline 100mg BID when ready 2. Start nasal saline moisture to stomal crusting BID followed by mupirocin 2% ointment -- apply to stomal area 3. Avid laryngeal stomal care important-- printed stomal care recommendations given to patient 4. Humidified air recommended 5. Followup outpatient clinic in 1-2 weeks post discharge-- card given
[2021-02-16] MEDS ORDERED: GABAPENTIN 100 MG CAP PO SCH (13:00)
[2021-02-16 13:01] VITALS: BP 136/79; TEMP 97.1
--- NOTE | 2021-02-16 15:31 | P.DS ---
Admission Date: 02/15/21 Discharge Date: 02/16/21 Disposition: ROUTINE DISCHARGE Discharge Condition: FAIR Reason for Admission: trach infection, vasculitis - Problems (1) Vasculitis Current Visit: Yes Status: Acute (2) Tracheitis Current Visit: No Status: Acute (3) History of depression Onset Date: 10/14/17 Current Visit: No Status: Chronic (4) History of laryngeal cancer Current Visit: No Status: Chronic Brief History of Present Illness: Mr. Pugh is a 50 yo M with throat ca s/p laryngectomy, COPD, asthma who presents with 2 weeks of increased erythema, warmth and pain at his trach site. He feels that there was a hair fungus growing in his trachea. He reported non-productive cough. He denied fever, nausea and vomiting. He also reported edema and pain in his legs for the past two weeks. K 3.3. Patient hospitalized for further management. Hospital Course: Patient placed under observation on the medical floor. He was started on IV antibiotics-vancomycin and cefepime. Patient seen and evaluated by ENT Dr. Espinosa who recommended tracheostoma care, mupirocin ointment to the stoma and the skin around it, oral doxycycline and humidified air. Sputum culture obtained. Patient discharged with prescription for oral doxycycline. Patient given instruction for tracheostomy stoma care. He is informed to follow with his PCP regarding results of his sputum culture. Sputum has been cultured for both bacteria and fungus. Vital Signs/Physical Exam: Temp Pulse Resp BP Pulse Ox 97.1 F 90 18 136/79 100 02/16/21 12:00 02/16/21 12:00 02/16/21 12:00 02/16/21 12:00 02/16/21 12:00 General: Alert, In no apparent distress, Oriented x3 HEENT: Other (Tracheal stoma with dry cracked mucosa, ) Respiratory: Clear to auscultation bilaterally, Normal air movement Cardiovascular: No edema, Regular rate/rhythm, Normal S1 S2 Gastrointestinal: Soft and benign, Non-distended Musculoskeletal: No swelling Integumentary: Other (Erythematous papular rash-bilateral legs.) Neurological: Normal strength at 5/5 x4 extr Lymphatics: No axilla or inguinal lymphadenopathy Laboratory Data at Discharge: WBC 7.60 K/uL (4.3-10.9) D 02/16/21 05:21 Hgb 12.0 g/dL (13.6-17.9) L 02/16/21 05:21 Hct 35.1 % (39.6-49.0) L 02/16/21 05:21 Plt Count 322 K/uL (152-406) 02/16/21 05:21 PT 12.8 SECONDS (9.5-12.5) H 02/15/21 20:46 INR 1.11 02/15/21 20:46 Sodium 138 mmol/L (136-145) 02/16/21 05:21 Potassium 3.4 mmol/L (3.5-5.1) L 02/16/21 05:21 BUN 4 mg/dL (7-18) L 02/16/21 05:21 Creatinine 0.67 mg/dL (0.55-1.3) 02/16/21 05:21 Glucose 130 mg/dL (74-106) H 02/16/21 05:21 Phosphorus 3.7 mg/dL (2.5-4.9) 02/16/21 05:21 Magnesium 1.8 mg/dL (1.8-2.4) 02/16/21 05:21 Total Bilirubin 0.6 mg/dL (0.2-1.0) 02/16/21 05:21 AST 13 U/L (15-37) L 02/16/21 05:21 ALT 12 U/L (12-78) 02/16/21 05:21 Alkaline Phosphatase 185 U/L (45-117) H 02/16/21 05:21 Triglycerides 66 mg/dL (<150) 02/16/21 05:21 Cholesterol 131 mg/dL (<200) 02/16/21 05:21 HDL Cholesterol 56 mg/dL (40-60) 02/16/21 05:21 Cholesterol/HDL Ratio 2.34 02/16/21 05:21 Home Medications: Lipase/Protease/Amylase [Chucho Falcon 12,000 Unit Capsule] 1 each PO BEDTIME PRN PRN 09/29/20 Hydrocodone 10/APAP 325 [[place] 103[address]*] 1 tab PO Q4HP PRN #42 tab 10/02/20 Amlodipine [Norvasc*] 10 mg PO DAILY #30 tab 02/16/21 Aspirin 81 mg PO DAILY #30 tab.chew 02/16/21 Aspirin [Aspirin EC] 81 mg PO DAILY #30 02/16/21 Doxycycline Hyclate 100 mg PO BID #20 capsule 02/16/21 Escitalopram [Lexapro*] 20 mg PO DAILY #30 tab 02/16/21 Ferrous Sulfate [Ferrous Sulfate Elixir*] 5 ml PO BID #60 osyr 02/16/21 Gabapentin [Neurontin*] 100 mg PO QID #120 cap 02/16/21 Levothyroxine Sodium [Levoxyl] 125 mcg PO Q48H #30 02/16/21 Levothyroxine [Synthroid*] 125 mcg PO [id number] #30 tab 02/16/21 Lipase/Protease/Amylase [Creon Dr 12,000 Units Capsule] 1 tab PO TIDWM #90 cap 02/16/21 Melatonin [Melatonin*] 6 mg PO BEDTIME #30 tablet 02/16/21 Melatonin [Melatonin*] 6 mg PO BEDTIME #60 02/16/21 Mupirocin Oint [Bactroban 2% Ointment*] 1 appl TOP BID #1 tube 02/16/21 New Medications: Aspirin 81 mg PO DAILY #30 tab.chew Aspirin [Aspirin EC] 81 mg PO DAILY #30 Mupirocin Oint [Bactroban 2% Ointment*] 1 appl TOP BID #1 tube Lipase/Protease/Amylase [Creon Dr 12,000 Units Capsule] 1 tab PO TIDWM #90 cap Doxycycline Hyclate 100 mg PO BID #20 capsule Ferrous Sulfate [Ferrous Sulfate Elixir*] 5 ml PO BID #60 osyr Levothyroxine Sodium [Levoxyl] 125 mcg PO Q48H #30 Escitalopram [Lexapro*] 20 mg PO DAILY #30 tab Melatonin [Melatonin*] 6 mg PO BEDTIME #60 Melatonin [Melatonin*] 6 mg PO BEDTIME #30 tablet Gabapentin [Neurontin*] 100 mg PO QID #120 cap Amlodipine [Norvasc*] 10 mg PO DAILY #30 tab Levothyroxine [Synthroid*] 125 mcg PO [id number] #30 tab Diet: AHA Followup: Scarlet Espinosa DO [ACTIVE - CAN ADMIT] - 1-2 Weeks Mandeep Perez MD [Primary Care Provider] - 1-2 Weeks Rheumatology,[facility] [OUTSIDE AGENCY] - 1-2 Weeks
[2021-02-16 15:51] VITALS: O2SAT 97
[2021-02-16] MEDS ORDERED: LIPASE/PROTEASE/AMYLASE CAP PO SCH (17:00)
[2021-02-16] MEDS ORDERED: MUPIROCIN 2% OINT 22GM TUBE TOP SCH (21:00)
[2021-02-16] MEDS ORDERED: MELATONIN 3 MG TABLET PO SCH (21:00)
--- NOTE | 2021-02-16 22:22 | CON ---
Date of Consultation: 02/16/2021 Chief Complaint: Neck pain. History Of Present Illness: The patient is a very interesting 50-year-old male who underwent a total laryngectomy in 2018, and has had a relatively routine postoperative course, but recently within the past 2 weeks, he has had increased neck pain situated around the laryngeal stoma and extending down into the trachea and bilateral bronchi. He reports the sensation is crawling insects and actually believes that he had yellow and black parasites growing within his trachea. He also reports severe dryness and crusting, but denies bleeding, mucus or drainage. He has been coughing up mucus from the lungs, but he states the mucus is mostly white, and at times green in color. He has been having these symptoms for the past few weeks, and the pain worsened whereby he came to the emergency room for further evaluation and management. He is able to tolerate all solids and liquids, and he communicates by writing in a notebook. He does not use electrolarynx or TE prosthesis for speaking. No other ENT complaints today. Past Medical History: Laryngeal cancer status post laryngectomy in 2018. Medications: Please refer the MAR. Allergies: TO IODINE, BACTRIM, LEVOFLOXACIN, AMPICILLIN. Social History: Denies tobacco or alcohol. He did test positive for amphetamines at this setting. Review of Systems: Neck: Positive for the neck stomal pain and crusting with dryness of the mucosa. Eyes: Negative for drainage or visual disturbance. Ears: Negative for otalgia or otorrhea. Hearing loss. Nose: Negative for rhinorrhea, postnasal drip, or congestion. Oral Cavity/Oropharynx: Negative for dysphagia, odynophagia, or sore throat. Physical Examination: Vital Signs: Stable. The patient is afebrile. General: He is awake, alert, oriented, and in no acute distress when I arrive to bedside. Eyes: PERRLA/EOMI. Ears: Moderate bilateral cerumen with extruded left tympanostomy tube. Bilateral tympanic membranes are intact. No evidence of middle ear effusion. Nose: Midline septum and moist mucosa. Oral Cavity: Patent posterior oropharynx. Midline uvula. No edema or exudate. Neck: Large laryngeal stoma with evidence of severe dryness and crusting, and a small dehiscence noted in the posterior wall. Flexible tracheoscopy and bronchoscopy: I was able to insert a flexible laryngoscope into the stoma and dryness and crusting extended almost to the eusebio. I was able to visualize bilateral bronchi and several of the subsegmental bronchioles and with the exception of inspissated mucus, the patient did not have any evidence of masses, lesions, or obstruction. The scope was withdrawn safely through the stoma. The patient tolerated the bedside procedure well. CT scan of soft tissue neck with contrast reviewed, which demonstrates inflammation at both laryngeal stomal site and extending down the trachea to the eusebio. No evidence of abscess, and it does not appear that there is a tracheoesophageal fistula based on my viewing. Chest CT and x-rays were negative for infiltrate or nodules. Diagnoses: Tracheobronchitis. Recommendations: 1. May continue Maxipime and vancomycin, and when ready, he can convert to doxycycline p.o. b.i.d. 2. Detailed discussion undertaken with regard to laryngeal stoma care. The patient could improve significantly in this area and printed instructions were given to the patient to peruse and to implement when he is discharged. 3. We will start humidification with moist wet-to-dry dressings around the stomal site with saline and then application of mupirocin 2% ointment at laryngeal stomal site, and this can also be applied even inferiorly within the trachea with a long Q-tip. 4. Bedside humidifier recommended. 5. Follow up in the outpatient setting in 1 to 2 weeks post discharge. 6. There was no evidence of any insects or parasites during the exam, and I feel that possibly the crawling sensation is from the amphetamine use or withdrawals. We will follow him up in the outpatient setting. Thank you for this most interesting patient. DESTINEE/LILLIAN Voice ID: [id number] Report ID: [id number] JODEE
[2021-02-17] MEDS ORDERED: LEVOTHYROXINE SOD 0.125 MG TAB PO SCH (06:00)
[2021-02-17] MEDS ORDERED: AMLODIPINE 10 MG TAB PO SCH (09:00)
[2021-02-17] MEDS ORDERED: ASPIRIN EC 81 MG TAB PO SCH (09:00)
== END 2021-02-16 19:05 | disposition home or self-care (01) ==
LOC: ER 18:32 → ERHOLD 23:00 → 2ND 23:48
PROVIDERS: ADMIT Internal Medicine; ATTEND Internal Medicine
PROC: 0BJ08ZZ Inspection of Tracheobronchial Tree, Via Natural or Artificial Opening Endoscopic (ICD-10-PCS; principal; 2021-02-16)
DX: J04.10 Acute tracheitis without obstruction (principal); I77.6 Arteritis, unspecified; J44.9 Chronic obstructive pulmonary disease, unspecified; J45.909 Unspecified asthma, uncomplicated; E89.0 Postprocedural hypothyroidism; G62.9 Polyneuropathy, unspecified; G89.29 Other chronic pain; F32.A Depression, unspecified; F15.90 Other stimulant use, unspecified, uncomplicated; Z93.0 Tracheostomy status; Z85.21 Personal history of malignant neoplasm of larynx; Z90.02 Acquired absence of larynx; Z79.02 Long term (current) use of antithrombotics/antiplatelets; Z79.82 Long term (current) use of aspirin; Z87.891 Personal history of nicotine dependence; Z91.041 Radiographic dye allergy status; Z88.0 Allergy status to penicillin; Z20.822 Contact with and (suspected) exposure to COVID-19; Z82.49 Family history of ischemic heart disease and other diseases of the circulatory system; Z83.3 Family history of diabetes mellitus; Z80.3 Family history of malignant neoplasm of breast
CPT/HCPCS: 31622; 96365; 96367; 93005 ×2; 87040 ×2; 87070; 85025 ×2; 80048; 36415; 83735 ×2; 87205; 84100; 85610; 80061; 80076; 83605 ×2; 85652; 84443; 87077 ×2; 87186 ×2; 84484; 84439; 82728; 82746; 82607; 83540; 80053; 84145; 83880; 80307; 84466; 70490; 71250; 71045; 93970; 94760 ×3; 96375; 99285; 96366; U0003; J1650; J3370 ×2; J0692 ×2; J2270 ×5; J7050 ×2; J7030; J2405; J2920 ×3; G0378 ×2

== ENCOUNTER 2022-12-11 18:32 | Inpatient (IN) | payer OTHER ==
--- OUTSIDE RECORDS SUMMARY | 2022-12-11 18:51 | XMS REPORT | Continuity of Care Document ---
:1970 Author Organization [facility] [place] t Address [address] [place] [address] [place] [id number] Care Team Providers Name Role Phone Michelle Brothers Primary Care Physician BRODIE JANSEN Attending Clinician Unavailable MICHELLE JUSTICE Attending Clinician Unavailable ROSS GUNTER Attending Clinician Unavailable ROSS GUNTER Attending Clinician Unavailable Michelle Brothers Attending Clinician Anderson Francisco RN Attending Clinician Unavailable DERIC SANTOS Attending Clinician Unavailable Tez Moore Attending Clinician Deric Santos DO Attending Clinician JAIRO MARIN Attending Clinician Unavailable Jairo Marin DO Attending Clinician Jenniffer Olivier RN Attending Clinician Unavailable JOE TREADWELL Attending Clinician Unavailable Markell BUSINESS TECHNOLOGY ARCHITECT, Regis Attending Clinician Joe Treadwell MD Attending Clinician Doctor Unassigned, [place] Attending Clinician Unavailable Caprice Hodge MD Attending Clinician Lucy Shaffer MD Attending Clinician Love CASH REGISTER BALANCER, Jh S Attending Clinician Unavailable Lab, Ang - Db Attending Clinician Unavailable Unknown, Attending Attending Clinician Unavailable UNKNOWN, ATTENDING Attending Clinician Unavailable ANEFAUSTO CHETNA Attending Clinician Unavailable Anene BUSINESS TECHNOLOGY ARCHITECT, Chetna Attending Clinician BLAIR GALNIDO Attending Clinician Unavailable BLAIR GALINDO Attending Clinician Unavailable HORTENSIA SHANKS Attending Clinician Unavailable Yuliana INMAN, Pam Valiente Attending Clinician LUCY SHAFFER Attending Clinician Unavailable Taras US Attending Clinician Unavailable Taras Mckeon Attending Clinician MAURIZIO GALLARDO Attending Clinician Unavailable SADIQ NAPIER Attending Clinician Unavailable Emery PENA, Sayra Duncan Attending Clinician Unavailable CHIDI KRISHNAN Attending Clinician Unavailable Lennox Crystal MD Attending Clinician Chidi Krishnan MD Attending Clinician GIRISH HANEY Attending Clinician Unavailable Felisha INMAN, Urszula Mendoza Attending Clinician Girish Haney MD Attending Clinician [facility] Attending Clinician Yefri Claudio MD Attending Clinician Joe [place], [place] Attending Clinician Sadiq Napier MD Attending Clinician Debra Pearce RN Attending Clinician PAM BRIDGES Attending Clinician Unavailable CATALINA COSTA Attending Clinician Unavailable Catalina Costa DO Attending Clinician Anupama [place], Malcolm B Attending Clinician MALCOLM ALTMAN B Attending Clinician Unavailable Pob, Adc Lab Main Attending Clinician Unavailable Jez [place], Mike Attending Clinician MIKE STORY Attending Clinician Unavailable Nyla Dixon MD Attending Clinician [phone] Adri ALBARRAN, Kary R Attending Clinician KARISHMA TENA Attending Clinician Unavailable CINDY RODRIGUEZ Attending Clinician Unavailable Cindy Rodriguez MD Attending Clinician ALEXIS DAVENPORT Attending Clinician Unavailable Tamiko PENA, Keya Attending Clinician Lab, Adc Fam Pob I Attending Clinician Unavailable Machelle INMAN, Dangelo Antoine Attending Clinician Dawna INMAN, Eli Attending Clinician Jeaneth INMAN, Yefri Correia Attending Clinician Chon INMAN, Sandra Escalante Attending Clinician Ethel INMAN, Alexis Mcrae Attending Clinician WASTE COLLECTOR, Kamille E Attending Clinician Trevor INMAN, Preston Anna Attending Clinician Jaquelin BUSINESS TECHNOLOGY ARCHITECT, Eligio Meyer Attending Clinician Kaela BUSINESS TECHNOLOGY ARCHITECT, Lizet Ruiz Attending Clinician Maurice Chaudhary MD Attending Clinician Provider, [facility] Care Attending Clinician Unavailable Caterina SANTOS, Rosa Arndt Attending Clinician Unavailable Apolinar PHD, Nidhi Duncan Attending Clinician NIDHI JIANG Attending Clinician Unavailable Maurizio Gallardo MD Attending Clinician LEXIE DRAKE Attending Clinician Unavailable Lexie Drake MD Attending Clinician Cain Herrera MD Attending Clinician JENNIFER FRAIRE Attending Clinician Unavailable REID ORDOÑEZ Attending Clinician Unavailable MELVIN HUERTA Attending Clinician Unavailable BRODIE JANSEN Admitting Clinician Unavailable DERIC SANTOS Admitting Clinician Unavailable Deric Santos DO Admitting Clinician JOE TREADWELL Admitting Clinician Unavailable Joe Treadwell MD Admitting Clinician Taras US Admitting Clinician Unavailable CHIDI KRISHNAN Admitting Clinician Unavailable Chidi Krishnan MD Admitting Clinician GIRISH HANEY Admitting Clinician Unavailable Girish Haney MD Admitting Clinician JAIRO MARIN Admitting Clinician Unavailable Yefri Claudio MD Admitting Clinician YEFRI CLAUDIO Admitting Clinician Unavailable CATALINA COSTA Admitting Clinician Unavailable Eli Toney MD Admitting Clinician Maurice Chaudhary MD Admitting Clinician MAURIZIO GALLARDO Admitting Clinician Unavailable JENNIFER FRAIRE Admitting Clinician Unavailable MELVIN HUERTA Admitting Clinician Unavailable Payers Payer Name Policy Type Policy Number Effective Date Expiration Date [facility] [id number] 2018 MEDICAID 00:00:00 HUMAN MEDICARE [id number] 2020 00:00:00 MEDICARE PART A \\T\\ [id number] 2019 B 00:00:00 [place] [id number] Problems Condition Condition Condition Status Onset Resolution Last Treating Co mments Source Name Details Category Date Date Treatment Clinician Date Abdominal Abdominal Disease Active Uni vers pain, pain, 8-06 ity of unspecifie [place] 00 Medical abdominal abdominal Bran ch location location Obesity Obesity Disease Active Univers (BMI (BMI 8-06 ity of 30-39.9) 30-39.9) 00:00: [address] Low libido Low libido Disease Active U nivers 6-05 ity of 00:00: [address] Need for Need for Disease Active Unive rs vaccinatio vaccinatio 6-05 it y of n n 00:00: [place] 00 Medical Branch Other Other Disease Active Univers seborrheic seborrheic 8 it y of dermatitis dermatitis [place] Acquired Acquired Disease Active Unive rs hypothyroi hypothyroi 8-29 it y of dism dism 00:00: [place] [facility] Neuropathy Neuropathy Disease Active U nivana lilia involving involving 8 ity of both lower both lower 00:[place] extremitie extremitie 00 Me dical s s Branch Esophagiti Esophagiti Disease Active U nivers s s 8 ity of 00:00: [place] 00 Medical Branch Chronic Chronic Disease Active Univers obstructiv obstructiv 8 it y of e e 00:00: [place] pulmonary pulmonary 00 Medi julieta disease, disease, Branch unspecifie unspecifie d COPD d COPD type type Anxiety Anxiety Disease Active Univers and and 11-27 ity of depression depression 00:[place]: [place] Encounter Encounter Disease Active Uni vers to to 8 ity of establish establish 00:00: [facility] care care Medical Branch Cellulitis Cellulitis Disease Active 2020-04 U sanchez 1-07 ity of 00:00: [place] 00 Medical Branch Pancreatit Pancreatit Disease Active 2020-04 U sanchez is, is, 0-30 ity of recurrent recurrent 00:[place] E46 E46 Disease Active Univers Unspecifie Unspecifie 9-17 it y of d severe d severe 00:00: [place] protein-ca protein-ca 00 Me dicpam [place] orestes Branch malnutriti malnutriti on on E44.0 E44.0 Disease Active Univers Moderate Moderate 8-27 ity of protein protein 00:00: [place] calorie calorie 00 Medical malnutriti malnutriti Br anch on on Acute on Acute on Disease Active Unive rs chronic chronic 8-25 ity of pancreatit pancreatit 00:[place] 00 Medical Branch Alcohol-in Alcohol-in Disease Active U sanchez duced duced 6-23 ity of acute acute [...] abdominal 1-10 ity of pain pain 00:00: [place] [facility] Gallstone Gallstone Disease Active 2019-04 Overview: Univers pancreatit pancreatit 1-10 Formattin ity of is is 00:00: g of this [place] note Medical might be Branch different from the original. Added automatic ally from request for surgery [id number] Acute Acute Disease Active 2019-04 Univers pancreatit pancreatit 0-30 it y of is is 00:00: [place] [facility] Epigastric Epigastric Disease Active 2019-04 Overview : Univers pain pain 0-29 Formattin ity of 00:00: g of this [place] note Medical might be Branch different from the original. Added automatic ally from request for surgery [id number] Dysphagia, Dysphagia, Disease Active 2019-04 Overview : Univers unspecifie unspecifie 0-29 Formattin ity of d type d type 00:00: g of this [place] 00 note Medical might be Branch different from the original. Added automatic ally from request for surgery [id number] Pancreatit Pancreatit Disease Active 2019-04 U nivers is is 0-07 ity of 00:00: [place] [facility] Dehydratio Dehydratio Disease Active 2019-04 U nivers n n 0-06 ity of 00:00: [place] [facility] Aphonia Aphonia Disease Active Univers 1-13 ity of 00:00: [place] [facility] Neck Neck Disease Active [facility] infection infection 5-14 [facility] 00:00: [facility] 00 Center S/P right S/P right Disease Recurre [facility] ALT flap ALT flap nce 4-16 [facility] graft graft 00:00: [facility] 00 Center Anemia of Anemia of Disease Recurre [facility] chronic chronic nce 4-16 [facility] disease disease 00:00: Medical 00 Center S/P S/P Disease Active [facility] laryngecto laryngecto 4-16 [facility] k[facility] my my 00:00: Medical 00 Center S/P S/P Disease Active [address] percutaneo percutaneo 4-16 [facility] kes us us 00:00: Medical endoscopic endoscopic 00 Ce nter gastrostom gastrostom y (PEG) y (PEG) tube tube placement placement Tracheosto Tracheosto Disease Recurre [facility] my care my care nce 4-11 [facility] 00:00: Medical 00 Center History of History of Disease Recurre [facility] laryngeal laryngeal nce 4-11 [facility] cancer cancer 00:00: Medical 00 Center Acute on Acute on Disease Recurre [facility] chronic chronic nce 3-16 [facility] respirator respirator 00:00: Me dical y failure y failure 00 Cent er with with hypoxemia hypoxemia 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 00 Cent er 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 312 [facility] 00:00: Medical 00 Center Presence Presence Disease Recurre [facility] of of nce 3-11 [facility] tracheosto tracheosto 00:00: Me dical my my 00 Center Laryngeal Laryngeal Disease Active [facility] mass mass 3-11 [facility] 00:00: Medical 00 Center Tracheal Tracheal Disease Active [facility] t stenosis stenosis 3 [facility] 00:[facility]: Medical 00 Center Laryngeal Laryngeal Problem Active Com mon cancer cancer [facility] Tracheosto Tracheosto Problem Active C ommon my care my care [facility] Chronic Chronic Problem Active Common obstructiv obstructiv Sp amada e e - [facility] pulmonary pulmonary [facility] disease, disease, [facility] unspecifie unspecifie Me dical d COPD d COPD Center type type Seasonal Seasonal Problem Active Commo n allergies allergies Spir it - [facility] GERD GERD Problem Active Common without without Spirit esophagiti esophagiti - CHI s s [facility] Essential Essential Problem Active Com mon (primary) (primary) Spir it hypertensi hypertensi - [facility] on on [facility] Polyneurop Polyneurop Problem Active C ommon athy in athy in Spirit diseases diseases - [facility] classified classified St elsewhere [facility] Postablati Postablati Problem Active C ommon ve ve Spirit hypothyroi hypothyroi - CHI dism dism [facility] Malignant Malignant Problem Active Com mon (primary) (primary) Spir it neoplasm, neoplasm, - CH I unspecifie unspecifie d [facility] Reactive Reactive Problem Active Commo n depression depression Sp amada - [facility] Allergies, Adverse Reactions, Alerts Allergy Allergy Status Severity Reaction(s) Onset Inactive Treating Comm ents Source Name Type Date Date Clinician Sulfamet Propensi Active Rash 2020-04 Univer s hoxazole ty to 04-07 ity of -Trimeth adverse 00:00: [place] oprim reaction 00 Medical s to [place] drug SULFAMET DRUG Active Med Rash 2020-04 Univers HOXAZOLE 04-07 ity of -TRIMETH 00:00: [place] OPRIM 00 [facility] Iodine Drug Active Nausea Only 2018- [facility] t And Allergy 5-14 [facility] Iodide 00:00: Medical Containi 00 [place] [facility] IODINE Allergy Active Med Nausea 2018-[address] [facility] AND 5-14 [facility] IODIDE 00:00: Medical CONTAINI 00 [place] [employer] IODINE Drug Active Med NAUSEA ONLY 2018- Unive rs AND Class 5-14 ity of IODIDE 00:00: [place] CONTAINI 00 [facility] PRODUCTS Ampicill Propensi Active Unknown - Uni vers in ty to See comments 5-13 ity of adverse 00:00: [place] reaction 00 Medical s Branch AMPICILL DRUG Active Unknown-Cmnt Un maddie IN INGREDI 5-13 ity of 00:00: [place] 00 [facility] Branch Ampicill Propensi Active Hives, Rash 2019- [facility] in ty to 07-10 adverse 00:00: Medical reaction 00 Center s Levoflox Propensi Active Hives, Rash 2018- [facility] acin ty to 07-10 adverse 00:00: Medical reaction 00 Center s AMPICILL Allergy Active Low Hives 2018- [facility] IN 07-10 [facility] 00:00: Medical 00 Center LEVOFLOX Allergy Active Low Hives 2018- [facility] ACIN 4-11 [facility] 00:00: Medical 00 Center Penicill Propensi Active Rash 2018-0 Other Univer s ins ty to 4-11 reaction( ity of adverse 00:00: s): [place] reaction 00 Unknown - Medic al s See Branch comments PENICILL Drug Active Med Hives 2018-0 Univers INS Class 4-11 ity of 00:00: [place] [id number] Medical Branch LEVOFLOX DRUG Active Low Hives 2018- Univers ACIN INGREDI 4-11 ity of 00:00: [address] Branch Iodine Adverse Active vomiting Common Reaction Spirit - [facility] Social History Social Habit Start Date Stop Date Quantity Comments Source History of tobacco Cigarette Smoker University of use [facility] Gender identity Universit y of [facility] Sexual orientation Univer sity of [facility] History SDOH [facility] Alcohol Std Drinks Medica l Center History SDOH [facility] Alcohol Binge Medical Ant ter Tobacco use and 2022-11-13 2022-11-13 Smokeless tobacco Un iversity of exposure 00:00:00 00:00:00 non-user [facility] Exposure to 2022-08-18 2022-08-28 Not sure University of SARS-CoV-2 (event) 00:00:00 15:38:00 [facility] History of Social 2022-08-28 2022-08-28 Univers ity of function 00:00:00 00:00:00 [facility] Alcohol Comment 2020-08-22 2020-08-22 1/ of corinna per University of 00:00:00 00:00:00 week [facility] Education 2020-01-29 2020-01-29 21 University of 00:00:00 00:00:00 [place] [facility] History SDOH 2020-01-29 2020-01-29 5 University o f Financial 00:00:00 00:00:00 [place] [facility] History [facility] Food 2020-01-29 2020-01-29 1 Univers ity of Worry 00:00:00 00:00:00 [place] [facility] History [place] Food 2020-01-29 2020-01-29 1 Univers ity of Scarcity 00:00:00 00:00:00 [place] [facility] History SDOH 2020-01-29 2020-01-29 2 University o f Transport Med 00:00:00 00:00:00 [place] Medic al Branch History SDOH 2020-01-29 2020-01-29 2 University o f Transport Non-Med 00:00:00 00:00:00 [place] M edical Branch Alcohol intake 2018-07-15 2018-07-15 Current non-drinker [facility] 00:[facility] 00:00:00 of alcohol [facility] Center (finding) Tobacco Comment 2018-06-06 2018-06-[address] [facility] 00:00:00 00:00:00 Medical Center History SDOH 2018-06-06 2018-06-[address] [facility] Alcohol Frequency 00:00:00 00:00:00 Medical Center Sex Assigned At [address] [facility] 00:00:00 00:00:00 Medical Center Smoking Status Start Date Stop Date Source Occasional tobacco 2022-11-13 00:00:00 [facility] smoker Medical Branch Ex-smoker 2021-11-27 00:00:00 2021-11-27 [facility] 00:00:00 Medical Branch Medications Ordered Filled Start Stop Current Ordering Indication Dosage Frequency Signature Comments Components Source Medication Medication Date Date Medication? Clinician (SIG) Name Name lactated Yes 1000mL at 100 Unive rs ringers IV 9-01 mL/hr, ity of infusion 00:00[place] 1,000 [place] 1[place]000 [place] 00 IV Medical Infusion, Branch CONTINUOUS , Starting on Patricia 11/29/22 at 1900, Until Discontinu ed, Routine ondansetron 2022- Yes [id number] 4mg Take 1 Univers 4 mg 9-04 10- tablet by ity of disintegrat 00:00: 04:59 [place] tablet 00 :00 every 8 Medica l (eight) Branch hours as needed for Nausea and Vomiting (N/V) for up to 30 days. ondansetron 2022- Yes [id number] 4mg Take 1 Univers 4 mg 9-01 10-02 tablet by ity of disintegrat 00:00: 04:59 [place] ing tablet 00 :00 every 8 Medica l (eight) Branch hours as needed for Nausea and Vomiting (N/V) for up to 30 days. ondansetron 2022- Yes [id number] 4mg Take 1 Univers 4 mg 9- 10- tablet by ity of disintegrat 00:00: 04:59 [place] tablet 00 :00 every 8 Medica l (eight) Branch hours as needed for Nausea and Vomiting (N/V) for up to 30 days. ondansetron 2022- Yes [id number] 4mg Take 1 Univers 4 mg 9- 10-02 tablet by ity of disintegrat 00:00: 04:59 [place] tablet 00 :00 every 8 Medica l (eight) Branch hours as needed for Nausea and Vomiting (N/V) for up to 30 days. ondansetron 2022- Yes [id number] 4mg Take 1 Univers 4 mg 9- 10- tablet by ity of disintegrat 00:00: 04:59 [place] tablet 00 :00 every 8 Medica l (eight) Branch hours as needed for Nausea and Vomiting (N/V) for up to 30 days. ondansetron 2022- Yes [id number] 4mg Take 1 Univers 4 mg -04 10- tablet by ity of disintegrat 00:00: 04:59 [place] tablet 00 :00 every 8 Medica l (eight) Branch hours as needed for Nausea and Vomiting (N/V) for up to 30 days. HYDROcodone 2022- Yes [id number] 1{tbl} Take 1 U nivers -acetaminop 9- 09-09 tablet by it y of hen 5-325 00:00: 04:59 mouth [place] mg tablet 00 :00 every 6 Medical (six) Branch hours as needed for Pain (scale 7-10) for up to 7 days. Indication s: acute pain HYDROcodone 2022- Yes [id number] 1{tbl} Take 1 U nivers -acetaminop 9- 09-09 tablet by it y of hen 5-325 00:00: 04:59 mouth [place] mg tablet 00 :00 every 6 Medical (six) Branch hours as needed for Pain (scale 7-10) for up to 7 days. Indication s: acute pain HYDROcodone 2022- Yes [id number] 1{tbl} Take 1 U nivers -acetaminop 9- 09-09 tablet by it y of hen 5-325 00:00: 04:59 mouth [place] mg tablet 00 :00 every 6 Medical (six) Branch hours as needed for Pain (scale 7-10) for up to 7 days. Indication s: acute pain HYDROcodone 2022- Yes [id number] 1{tbl} Take 1 U nivers -acetaminop -12-08 tablet by it y of hen 5-325 00:00: 04:59 mouth [place] mg tablet 00 :00 every 6 Medical (six) Branch hours as needed for Pain (scale 7-10) for up to 7 days. Indication s: acute pain HYDROcodone 2022-2022- No 4647 1{tbl} Take 1 U nivers -acetaminop -12-08 tablet by it y of hen 5-325 00:00: 04:59 mouth [place] mg tablet 00 :00 every 6 Medical (six) Branch hours as needed for Pain (scale 7-10) for up to 7 days. Indication s: acute pain HYDROcodone 2022-2022- No 4647 1{tbl} Take 1 U nivers -acetaminop -12-08 tablet by it y of hen 5-325 00:00: 04:59 mouth [place] mg tablet 00 :00 every 6 Medical (six) Branch hours as needed for Pain (scale 7-10) for up to 7 days. Indication s: acute pain FENTanyl PF 2022-2022- No 50ug 50 mcg, Un maddie (SUBLIMAZE 11-29 Slow IV ity o f (PF)) 22:31: 12:30 Push, [place] injection 10 :10 Q3HPRN, Medical 50 mcg Starting Branch on Sat11/29/22 at 1731, Until Sat11/30/22 at 0730, Routine, Pain (scale 7-10) omeprazole 2022-0 Yes 40mg 40 mg, Unive rs (PRILOSEC) 11-29 Oral, ity of capsule 40 14:00: DAILY, [place] mg 00 First dose Medical on [place] Branch 11/29/22 at 0900, Until Discontinu ed escitalopra 2022-0 Yes 20mg 20 mg, Univ ers m oxalate 11-29 Oral, QAM, ity of (LEXAPRO) 14:00: [place] dose [place] tablet 20 00 on [place] Medical mg 11/29/22 at Branch 0900, Until Discontinu ed, Routine ARIPiprazol Yes 5mg 5 mg, Unive rs e (ABILIFY) 11-29 Oral, ity of tablet 5 mg 14:00: DAILY, [place] 00 First dose Medical on [facility] 11/29/22 at 0900, Until Discontinu ed, Routine enoxaparin Yes 40mg 40 mg, Unive rs (LOVENOX) 11-29 Subcutaneo ity of injection 14:00: [place], DAILY, [place] 40 mg 00 First dose Medical on [facility] 11/29/22 at 0900, Until Discontinu ed, Routine lipase-prot Yes 1{capsu 1 capsule, Univers ease-amylas 11-29 le} Oral, TID ity of e (CREON) 13:00: MEALS, [place] 12,000-38,0 00 First dose Me dical 00 -60,000 on [facility] unit 11/29/22 at capsule 1 0800, capsule Until Discontinu ed, Routine levothyroxi Yes 150ug 150 mcg, U nivers ne 11-29 Oral, ity of (SYNTHROID) 11:00: QAM-0600, [place] tablet 150 00 First dose Med ical mcg on [facility] 11/29/22 at 0600, Until Discontinu ed, Routine gabapentin Yes 800mg 800 mg, Uni vers (NEURONTIN) 11-29 Oral, TID, it y of tablet 800 01:15: First dose [place] mg 00 on [facility] 11/28/22 at Branch 2015, Until Discontinu ed, Routine albuterol Yes 2{puff} 2 Puff, Un maddie (VENTOLIN) 11-29 Inhalation ity of inhaler 2 00:58: , Q6HPRN, Real as Puff 39 Starting Medical on Sat [place] 11/28/22 at 1958, Until Discontinu ed, Routine, Wheezing, Shortness of Breath lactated 2022-0 2022- No 1000mL at 200 Univ ers ringers IV 11-28 08-31 mL/hr, ity of infusion 22:30: 23:56 1,000 mL, Real as 1,000 mL 00 :57 IV Medical Infusion, Branch CONTINUOUS , Starting on Sat11/28/22 at 1730, Until Patricia 11/29/22 at 1856, Routine ondansetron Yes 4mg 4 mg, Slow Univers (ZOFRAN 11-28 IV Push, ity of (PF)) 22:16: Q6HPRN, [place] injection 4 14 Starting Medi julieta mg on Sat Branch 11/28/22 at 1716, Until Discontinu ed, Routine, Nausea and Vomiting (N/V) FENTanyl PF 2022- No 50ug 50 mcg, Un maddie (SUBLIMAZE 11-28 Slow IV ity o f (PF)) 22:16: 22:15 Push, [place] injection 09 :09 Q3HPRN, Medical 50 mcg Starting Branch on Sat11/28/22 at 1716, Until [place] 11/29/22 at 1715, Routine, Pain (scale 7-10) HYDROcodone 2022- Yes 1{tbl} 1 tablet, Univers -acetaminop 11-28 0901 Oral, ity of hen (NORCO 22:16: 22:15 Q6HPRN, Real as 5) 5-325 mg 03 :03 Starting Medi julieta tablet 1 on Sat Branch tablet 11/28/22 at 1716, Until Sat11/30/22 at 1715, Routine, Pain (scale 4-6) acetaminoph Yes 650mg 650 mg, Un maddie en 11-28 Oral, ity of (TYLENOL) 22:16: Q6HPRN, [place] tablet 650 01 Starting Medic al mg on Sat Branch 11/28/22 at 1716, Until Discontinu ed, Routine, Pain (scale 1-3) NaCl 0.9% 2022- No 1000mL at 999 Uni vers (NS) bolus 11-2830 mL/hr, ity of infusion 22:15: 22:33 1,000 mL, [place] 1,000 mL 00 :00 IV Medical Infusion, Branch ONCE, 1 dose, On Sat11/28/22 at 1715, KENIA ondansetron 2022- No 4mg 4 mg, Slow Univers (ZOFRAN 11-28 IV Push, ity of (PF)) 22:15: 21:29 ONCE, 1 [place] injection 4 00 :00 dose, On Medi julieta mg Wed Branch 11/28/22 at 1715, KENIA morpHINE (4 2022- No 4mg 4 mg, Slow Univers mg/mL) 11-28 IV Push, ity of injection 4 22:15: 21:29 ONCE, 1 [place] mg 00 :00 dose, On Medical Wed Branch 11/28/22 at 1715, KENIA ondansetron 2022-0 Yes [id number] 4mg Take 1 Univers 4 mg 8-17 tablet by ity of disintegrat 00:00: mouth [place] ing tablet 00 every 8 Medica l (eight) Branch hours as needed for Nausea and Vomiting (N/V). albuterol 2022-0 Yes [id number] 2{puff} Inhale 2 Univers 90 8-17 Puffs ity of mcg/actuati 00:00: every 6 Real as on inhaler 00 (six) Medical hours as Branch needed for Wheezing or Shortness of Breath. ARIPiprazol 2022-0 Yes [id number] 5mg Take 1 Univers e 5 mg 8-17 tablet by ity of tablet 00:00: mouth in [place] 00 the Medical morning. Branch ondansetron 2022-0 Yes [id number] 4mg Take 1 Univers 4 mg 8-17 tablet by ity of disintegrat 00:00: mouth [place] ing tablet 00 every 8 Medica l (eight) Branch hours as needed for Nausea and Vomiting (N/V). albuterol 2022-0 Yes [id number] 2{puff} Inhale 2 Univers 90 8-17 Puffs ity of mcg/actuati 00:00: every 6 Real as on inhaler 00 (six) Medical hours as Branch needed for Wheezing or Shortness of Breath. ARIPiprazol 2022-0 Yes [id number] 5mg Take 1 Univers e 5 mg 8-17 tablet by ity of tablet 00:00: mouth in [place] 00 the Medical morning. Branch ondansetron 2022-0 Yes [id number] 4mg Take 1 Univers 4 mg 8-17 tablet by ity of disintegrat 00:00: mouth [place] ing tablet 00 every 8 Medica l (eight) Branch hours as needed for Nausea and Vomiting (N/V). albuterol 2023-0 Yes [id number] 2{puff} Inhale 2 Univers 90 8-17 Puffs ity of mcg/actuati 00:00: every 6 Real as on inhaler 00 (six) Medical hours as Branch needed for Wheezing or Shortness of Breath. ARIPiprazol 0 Yes [id number] 5mg Take 1 Univers e 5 mg 8-17 tablet by ity of tablet 00:00: mouth in [place] 00 the Medical morning. Branch ondansetron 0 Yes [id number] 4mg Take 1 [facility] 4 mg 8-17 tablet by ity of disintegrat 00:00: mouth [place] ing tablet 00 every 8 Medica l (eight) Branch hours as needed for Nausea and Vomiting (N/V). albuterol Yes [id number] 2{puff} Inhale 2 [facility] 90 8-17 Puffs ity of mcg/actuati 00:00: every 6 Real as on inhaler 00 (six) Medical hours as Branch needed for Wheezing or Shortness of Breath. ARIPiprazol Yes [id number] 5mg Take 1 Univers e 5 mg 8-17 tablet by ity of tablet 00:00: mouth in [place] 00 the Medical morning. Branch albuterol Yes [id number] 2{puff} Inhale 2 [facility] 90 8-17 Puffs ity of mcg/actuati 00:00: every 6 [place] on inhaler 00 (six) Medical hours as Branch needed for Wheezing or Shortness of Breath. ARIPiprazol 0 Yes [id number] 5mg Take 1 Univers e 5 mg 8-17 tablet by ity of tablet 00:00: mouth in [place] 00 the Medical morning. Branch albuterol 0 Yes [id number] 2{puff} Inhale 2 [facility] 90 8-17 Puffs ity of mcg/actuati 00:00: every 6 [place] on inhaler 00 (six) Medical hours as Branch needed for Wheezing or Shortness of Breath. ARIPiprazol 2022-0 Yes [id number] 5mg Take 1 Univers e 5 mg 8-17 tablet by ity of tablet 00:00: mouth in [place] 00 the Medical morning. Branch albuterol 2022-0 Yes [id number] 2{puff} Inhale 2 [facility] 90 8-17 Puffs ity of mcg/actuati 00:00: every 6 [place] on inhaler 00 (six) Medical hours as Branch needed for Wheezing or Shortness of Breath. ARIPiprazol 0 Yes [id number] 5mg Take 1 Univers e 5 mg 8-17 tablet by ity of tablet 00:00: mouth in [place] 00 the Medical morning. Branch albuterol 0 Yes [id number] 2{puff} Inhale 2 [facility] 90 8-17 Puffs ity of mcg/actuati 00:00: every 6 [place] on inhaler 00 (six) Medical hours as Branch needed for Wheezing or Shortness of Breath. ARIPiprazol 0 Yes [id number] 5mg Take 1 Univers e 5 mg 8-17 tablet by ity of tablet 00:00: mouth in [place] 00 the Medical morning. Branch albuterol Yes [id number] 2{puff} Inhale 2 [facility] 90 8-17 Puffs ity of mcg/actuati 00:00: every 6 [place] on inhaler 00 (six) Medical hours as Branch needed for Wheezing or Shortness of Breath. ARIPiprazol 0 Yes [id number] 5mg Take 1 Univers e 5 mg 8-17 tablet by ity of tablet 00:00: mouth in [place] 00 the Medical morning. Branch albuterol 0 Yes [id number] 2{puff} Inhale 2 [facility] 90 8-17 Puffs ity of mcg/actuati 00:00: every 6 [place] as on inhaler 00 (six) Medical hours as Branch needed for Wheezing or Shortness of Breath. ARIPiprazol 0 Yes [id number] 5mg Take 1 Univers e 5 mg 8-17 tablet by ity of tablet 00:00: mouth in [place] 00 the Medical morning. Branch ondansetron 2022- No [id number] 4mg Take 1 [facility] 4 mg 8-17 - tablet by ity of disintegrat 00:00: 00:00 [place] tablet 00 :00 every 8 Medica l (eight) Branch hours as needed for Nausea and Vomiting (N/V). HYDROcodone 0 2022- Yes [id number] 1{tbl} Take 1 U nivers -acetaminop 8-16 08-24 tablet by it y of hen 5-325 00:00: 04:59 mouth [place] mg tablet 00 :00 every 6 Medical (six) Branch hours as needed for Pain (scale 7-10) for up to 7 days. Indication s: acute pain HYDROcodone 2022-2022- Yes 4647 1{tbl} Take 1 U nivers -acetaminop 8-16 08-24 tablet by it y of hen 5-325 00:00: 04:59 mouth [place] mg tablet 00 :00 every 6 Medical (six) Branch hours as needed for Pain (scale 7-10) for up to 7 days. Indication s: acute pain HYDROcodone 2022-2022- Yes 4647 1{tbl} Take 1 U nivers -acetaminop 8-16 08-24 tablet by it y of hen 5-325 00:00: 04:59 mouth [place] mg tablet 00 :00 every 6 Medical (six) Branch hours as needed for Pain (scale 7-10) for up to 7 days. Indication s: acute pain HYDROcodone 2022- Yes 4647 1{tbl} Take 1 U nivers -acetaminop 8-16 08-24 tablet by it y of hen 5-325 00:00: 04:59 mouth [place] mg tablet 00 :00 every 6 Medical (six) Branch hours as needed for Pain (scale 7-10) for up to 7 days. Indication s: acute pain HYDROcodone 2022- Yes 4647 1{tbl} Take 1 U nivers -acetaminop 8-16 08-24 tablet by it y of hen 5-325 00:00: 04:59 mouth [place] mg tablet 00 :00 every 6 Medical (six) Branch hours as needed for Pain (scale 7-10) for up to 7 days. Indication s: acute pain enoxaparin Yes 40mg 40 mg, Unive rs (LOVENOX) 8-15 Subcutaneo ity of injection 22:00: us, DAILY Real as 40 mg 00 AT 1700, Medical First dose Branch on Sat11/13/22 at 1700, Until Discontinu ed, Routine omeprazole Yes 20mg 20 mg, Unive rs (PRILOSEC) 8-15 Oral, ity of capsule 20 14:00: DAILY, [place] mg 00 First dose Medical on [facility] 11/13/22 at 0900, Until Discontinu ed escitalopra Yes 20mg 20 mg, [facility] ers m oxalate 8-15 Oral, QAM, ity of (LEXAPRO) 14:00: First dose [place] tablet 20 00 on [facility] Medical mg 11/13/22 at Branch 0900, Until Discontinu ed, Routine ARIPiprazol 0 Yes 5mg 5 mg, [facility] rs e (ABILIFY) 815 Oral, ity of tablet 5 mg 14:00: DAILY, [place] 00 First dose Medical on [facility] 11/13/22 at 0900, Until Discontinu ed, Routine gabapentin 0 Yes 800mg 800 mg, Uni vers (NEURONTIN) 815 Oral, BID, it y of tablet 800 13:00: First dose [place] mg 00 on [facility] 11/13/22 at Branch 0800, Until Discontinu ed, Routine lipase-prot 0 Yes 1{capsu 1 capsule, Univers ease-amylas 11-13 le} Oral, TID ity of e (CREON) 13:00: MEALS, [place] 12,000-38,0 00 First dose Me dical 00 -60,000 on [facility] unit 11/13/22 at capsule 1 0800, capsule Until Discontinu ed, Routine levothyroxi 0 Yes 150ug 150 mcg, U nivers ne 8 Oral, ity of (SYNTHROID) 11:00: QAM-0600, [place] tablet 150 00 First dose Med ical mcg on [facility] 11/13/22 at 0600, Until Discontinu ed, Routine lactated 0 2022- No 1000mL at 125 [facility] ers ringers IV 11-13 08-15 mL/hr, ity of infusion 08:45: 16:33 1,000 mL, [place] as 1,000 mL 00 :43 IV Medical Infusion, Branch CONTINUOUS , Starting on 11/13/22 at 0345, Until [facility] 11/13/22 at 1133, Routine albuterol 0 Yes 2{puff} 2 Puff, [facility] maddie (VENTOLIN) 11-13 Inhalation ity of inhaler 2 08:32: , Q6HPRN, [place] as Puff 30 Starting Medical on Branch 11/13/22 at 0332, Until Discontinu ed, Routine, Wheezing, Shortness of Breath ondansetron Yes 4mg 4 mg, Slow Univers (ZOFRAN 11-13 IV Push, ity of (PF)) 08:29: Q6HPRN, [place] injection 4 35 Starting Medi julieta mg on Sat11/13/22 at 0329, Until Discontinu ed, Routine, Nausea and Vomiting (N/V) morpHINE (2 2022- No 2mg 2 mg, Slow Univers mg/mL) 11-13 IV Push, ity of injection 2 08:29: 08:28 Q4HPRN, [place] mg 25 :25 Starting Medical on Sat11/13/22 at 0329, Until Sat11/14/22 at 0328, Routine, Pain (scale 7-10) HYDROcodone 2022-2022- Yes 1{tbl} 1 tablet, Univers -acetaminop 11-13 Oral, ity of hen (NORCO 08:29: 08:28 Q6HPRN, [place] as 5) 5-325 mg 21 :21 Starting Medi julieta tablet 1 on Sat [place] tablet 11/13/22 at 0329, Until [place] 11/15/22 at 0328, Routine, Pain (scale 4-6) acetaminoph Yes 650mg 650 mg, Un maddie en 11-13 Oral, ity of (TYLENOL) 08:29: Q6HPRN, [place] tablet 650 16 Starting Medic al mg on Sat [place] 11/13/22 at 0329, Until Discontinu ed, Routine, Pain (scale 1-3) NaCl 0.9% 2022- No 1000mL at 100 Uni vers (NS) IV 11-13 mL/hr, ity of infusion 07:00: 14:50 Intravenou [place] 1,000 mL 00 :31 s, Medical CONTINUOUS Branch , Starting on Sat11/13/22 at 0200, Until Sat11/14/22 at 0950, [place] ondansetron 2022-0 2022- No 4mg 4 mg, Slow Univers (ZOFRAN 8-15 08-15 IV Push, ity of (PF)) 04:30: 04:29 ONCE, 1 [place] injection 4 00 :00 dose, On Medi julieta mg [facility] Branch 11/12/22 at 2330, KENIA morpHINE (2 2022- No 2mg 2 mg, Slow Univers mg/mL) 11-13 IV Push, ity of injection 2 04:30: 04:31 ONCE, 1 [place] mg 00 :00 dose, On Medical [facility] 11/12/22 at 2330, STAT ondansetron 2022- No 4mg 4 mg, Slow Univers (ZOFRAN 11-13 IV Push, ity of (PF)) 02:15: 02:25 ONCE, 1 [place] injection 4 00 :00 dose, On Medi julieta mg [facility] 11/12/22 at 2115, KENIA FENTanyl PF 2022- No 25ug 25 mcg, Un maddie (SUBLIMAZE 11-13 Slow IV ity o f (PF)) 02:15: 02:25 Push, [place] injection 00 :00 ONCE, 1 Medical 25 mcg dose, On Branch [facility] 11/12/22 at 2115, STAT HYDROcodone 2022- Yes 4647 1{tbl} Take 1 U nivers -acetaminop 8-08 08-16 tablet by it y of hen 5-325 00:00: 04:59 mouth [place] mg tablet 00 :00 every 6 Medical (six) Branch hours as needed for Pain (scale 4-6) for up to 7 days. Indication s: acute pain HYDROcodone 2022- Yes 4647 1{tbl} Take 1 U nivers -acetaminop 8-08 08-16 tablet by it y of hen 5-325 00:00: 04:59 mouth [place] mg tablet 00 :00 every 6 Medical (six) Branch hours as needed for Pain (scale 4-6) for up to 7 days. Indication s: acute pain HYDROcodone 2022- Yes 4647 1{tbl} Take 1 U nivers -acetaminop 8-08 08-16 tablet by it y of hen 5-325 00:00: 04:59 mouth [place] mg tablet 00 :00 every 6 Medical (six) Branch hours as needed for Pain (scale 4-6) for up to 7 days. Indication s: acute pain HYDROcodone 2022- Yes 4647 1{tbl} Take 1 U nivers -acetaminop 8-08 08-16 tablet by it y of hen 5-325 00:00: 04:59 mouth [place] mg tablet 00 :00 every 6 Medical (six) Branch hours as needed for Pain (scale 4-6) for up to 7 days. Indication s: acute pain HYDROcodone 2022- Yes 4647 1{tbl} Take 1 U nivers -acetaminop 8-08 08-16 tablet by it y of hen 5-325 00:00: 04:59 mouth [place] mg tablet 00 :00 every 6 Medical (six) Branch hours as needed for Pain (scale 4-6) for up to 7 days. Indication s: acute pain HYDROcodone 2022- Yes 4647 1{tbl} Take 1 U nivers -acetaminop 8-08 08-16 tablet by it y of hen 5-325 00:00: 04:59 mouth [place] mg tablet 00 :00 every 6 Medical (six) Branch hours as needed for Pain (scale 4-6) for up to 7 days. Indication s: acute pain HYDROcodone 2022- Yes 4647 1{tbl} Take 1 U nivers -acetaminop 8-08 08-16 tablet by it y of hen 5-325 00:00: 04:59 mouth [place] mg tablet 00 :00 every 6 Medical (six) Branch hours as needed for Pain (scale 4-6) for up to 7 days. Indication s: acute pain HYDROcodone 2022- No 4647 1{tbl} Take 1 U nivers -acetaminop 8-08 08-16 tablet by it y of hen 5-325 00:00: 00:00 mouth [place] mg tablet 00 :00 every 6 Medical (six) Branch hours as needed for Pain (scale 4-6) for up to 7 days. Indication s: acute pain morpHINE (4 Yes 2mg 2 mg, Slow Univers mg/mL) 11-05 IV Push, ity of injection 2 18:12: Q6HPRN, [place] mg 29 Starting Medical on Sat Branch 11/05/22 at 1312, Until Discontinu ed, Routine, Pain (scale 7-10) omeprazole 2022-0 Yes 40mg 40 mg, Unive rs (PRILOSEC) 11-05 Oral, ity of capsule 40 14:00: DAILY, [place] mg 00 First dose Medical on [facility] 11/05/22 at 0900, Until Discontinu ed escitalopra 2022-0 Yes 20mg 20 mg, Univ ers m oxalate 11-05 Oral, QAM, ity of (LEXAPRO) 14:00: First dose [place] tablet 20 00 on [facility] mg 11/05/22 at Branch 0900, Until Discontinu ed, Routine ARIPiprazol 2022-0 Yes 5mg 5 mg, Unive rs e (ABILIFY) 11-05 Oral, ity of tablet 5 mg 14:00: DAILY, [place] 00 First dose Medical on [facility] 11/05/22 at 0900, Until Discontinu ed, Routine enoxaparin 2022-0 Yes 40mg 40 mg, Unive rs (LOVENOX) 11-05 Subcutaneo ity of injection 14:00: us, DAILY, [place] 40 mg 00 First dose Medical on [facility] 11/05/22 at 0900, Until Discontinu ed, Routine gabapentin 2022-0 Yes 800mg 800 mg, Uni vers (NEURONTIN) 11-05 Oral, TID, it y of tablet 800 13:00: First dose [place] mg 00 on [facility] 11/05/22 at Branch 0800, Until Discontinu ed, Routine lipase-prot 2022-0 Yes 1{capsu 1 capsule, Univers ease-amylas 11-05 le} Oral, TID ity of e (CREON) 13:00: MEALS, [place] 12,000-38,0 00 First dose Me dical 00 -60,000 on [facility] unit 11/05/22 at capsule 1 0800, capsule Until Discontinu ed, Routine levothyroxi 2022-0 Yes 150ug 150 mcg, U nivers ne 11-05 Oral, ity of (SYNTHROID) 11:00: QAM-0600, [place] tablet 150 00 First dose Med ical mcg on [facility] 11/05/22 at 0600, Until Discontinu ed, Routine albuterol 0 Yes 2{puff} 2 Puff, [place] (VENTOLIN) 11-05 Inhalation ity of inhaler 2 08:49: , Q6HPRN, [place] Puff 30 Starting Medical on Mon Branch 11/05/22 at 0349, Until Discontinu ed, Routine, Wheezing, Shortness of Breath atorvastati 2022- No 80mg Take 80 mg Univers n 80 mg 11-05 08-06 by mouth ity of tablet 03:50: 00:00 at [place] 46 :00 bedtime. Medical Branch nicotine Yes 1{patch 1 Patch, [place] [facility] (NICODERM) 11-05 } Topical, ity o f 14 mg/24 hr 02:30: Administer [place] patch 1 00 over 24 Medical Patch Hours, Branch Q24H, First dose on Sat11/04/22 at 2130, Until Discontinu ed, Routine varenicline Yes [id number] 1mg Take 1 Univers (CHANTIX) 1 07 tablet by ity of mg tablet 00:00: mouth in [place] 00 the Medical morning Branch and 1 tablet in the evening. varenicline Yes [id number] 1mg Take 1 Univers (CHANTIX) 1 07 tablet by ity of mg tablet 00:00: mouth in [place] 00 the Medical morning Branch and 1 tablet in the evening. varenicline 2022- No [id number] 1mg Take 1 Univers (CHANTIX) 1 11-05 07-25 tablet by it y of mg tablet 00:00: 00:00 mouth in [place] 00 :00 the Medical morning Branch and 1 tablet in the evening. lactated Yes 1000mL at 150 Unive rs ringers IV 8-06 mL/hr, ity of infusion 22:15: 1,000 mL, [place] 1,000 mL 00 IV Medical Infusion, Branch CONTINUOUS , Starting on Sat11/04/22 at 1715, Until Discontinu ed, Routine ondansetron Yes 4mg 4 mg, Slow Univers (ZOFRAN 11-04 IV Push, ity of (PF)) 22:06: Q6HPRN, [place] injection 4 09 Starting Medi julieta mg on Sat Branch 11/04/22 at 1706, Until Discontinu ed, Routine, Nausea and Vomiting (N/V) FENTanyl PF 2022-2022- No 50ug 50 mcg, Un maddie (SUBLIMAZE 11-04 Slow IV ity o f (PF)) 22:05: 18:14 Push, [place] injection 28 :02 Q3HPRN, Medical 50 mcg Starting Branch on 11/04/22 at 1705, Until Sat11/05/22 at 1314, Routine, Pain (scale 7-10) HYDROcodone 2022-2022- Yes 1{tbl} 1 tablet, Univers -acetaminop 11-04 Oral, ity of hen (NORCO 22:05: 22:04 Q6HPRN, [place] 5) 5-325 mg 23 :23 Starting Medi julieta tablet 1 on [place] Branch tablet 11/04/22 at 1705, Until Sat11/06/22 at 1704, Routine, Pain (scale 4-6) morpHINE (4 2022- No 4mg 4 mg, Slow Univers mg/mL) 11-04 IV Push, ity of injection 4 20:00: 20:22 ONCE, 1 [place] mg 00 :00 dose, On Medical 11/04/22 Branch at 1500, STAT famotidine 2022- No 20mg 20 mg, Univ ers (PEPCID 11-04 Slow IV ity of (PF)) 20:00: 20:22 Push, [place] injection 00 :00 ONCE, 1 Medical 20 mg dose, On Branch [place] 11/04/22 at 1500, KENIA NaCl 0.9% 2022- No 1000mL at 999 Uni vers (NS) bolus 11-04 mL/hr, ity of infusion 19:30: 23:27 1,000 mL, [place] 1,000 mL 00 :00 IV Medical Piggyback, Branch ONCE, 1 dose, On 11/04/22 at 1430, STAT NaCl 0.9% 2022- No 1000mL at 999 Uni vers (NS) bolus 11-04 0806 mL/hr, ity of infusion 18:30: 19:53 1,000 mL, [place] 1,000 mL 00 :00 IV Medical Piggyback, Branch ONCE, 1 dose, On [place] 11/04/22 at 1330, STAT morpHINE (4 2022- No 6mg 6 mg, Slow Univers mg/mL) 11-04 IV Push, ity of injection 6 18:00: 17:56 ONCE, 1 [place] mg 00 :00 dose, On Medical 11/04/22 Branch at 1300, STAT ondansetron 2022- No 8mg 8 mg, Slow Univers (ZOFRAN 11-04 IV Push, ity of (PF)) 17:45: 17:56 ONCE, 1 [place] injection 8 00 :00 dose, On Medi julieta mg 11/04/22 Branch at 1245, KENIA ESCITALOPRA Yes [id number] TAKE ONE Univers M OXALATE 8-02 TABLET BY ity o f 20 mg 00:00: MOUTH [place] tablet 00 EVERY Medical MORNING Branch ESCITALOPRA Yes [id number] TAKE ONE Univers M OXALATE 8-02 TABLET BY ity o f 20 mg 00:00: MOUTH [place] tablet 00 EVERY Medical MORNING Branch ESCITALOPRA 0 Yes [id number] TAKE ONE Univers M OXALATE 8-02 TABLET BY ity o f 20 mg 00:00: MOUTH [place] tablet 00 EVERY Medical MORNING Branch ESCITALOPRA 0 Yes [id number] TAKE ONE Univers M OXALATE 8-02 TABLET BY ity o f 20 mg 00:00: MOUTH [place] tablet 00 EVERY Medical MORNING Branch ESCITALOPRA 0 Yes [id number] TAKE ONE Univers M OXALATE 8-02 TABLET BY ity o f 20 mg 00:00: MOUTH [place] tablet 00 EVERY Medical MORNING Branch ESCITALOPRA 2022-0 Yes [id number] TAKE ONE Univers M OXALATE 8-02 TABLET BY ity o f 20 mg 00:00: MOUTH [place] tablet 00 EVERY Medical MORNING Branch ESCITALOPRA 0 Yes [id number] TAKE ONE Univers M OXALATE 8-02 TABLET BY ity o f 20 mg 00:00: MOUTH [place] tablet 00 EVERY Medical MORNING Branch ESCITALOPRA 0 Yes [id number] TAKE ONE Univers M OXALATE 8-02 TABLET BY ity o f 20 mg 00:00: MOUTH [place] tablet 00 EVERY Medical MORNING Branch ESCITALOPRA 0 Yes [id number] TAKE ONE Univers M OXALATE 8-02 TABLET BY ity o f 20 mg 00:00: MOUTH [place] tablet 00 EVERY Medical MORNING Branch ESCITALOPRA Yes [id number] TAKE ONE Univers M OXALATE 8-02 TABLET BY ity o f 20 mg 00:00: MOUTH [place] tablet 00 EVERY Medical MORNING Branch ESCITALOPRA Yes [id number] TAKE ONE Univers M OXALATE 8-02 TABLET BY ity o f 20 mg 00:00: MOUTH [place] tablet 00 EVERY Medical MORNING Branch ESCITALOPRA Yes [id number] TAKE ONE Univers M OXALATE 8-02 TABLET BY ity o f 20 mg 00:00: MOUTH [place] tablet 00 EVERY Medical MORNING Branch ESCITALOPRA Yes [id number] TAKE ONE Univers M OXALATE 8-02 TABLET BY ity o f 20 mg 00:00: MOUTH [place] tablet 00 EVERY Medical MORNING Branch ESCITALOPRA Yes [id number] TAKE ONE Univers M OXALATE 8-02 TABLET BY ity o f 20 mg 00:00: MOUTH [place] tablet 00 EVERY Medical MORNING Branch ESCITALOPRA Yes [id number] TAKE ONE Univers M OXALATE 8-02 TABLET BY ity o f 20 mg 00:00: MOUTH [place] tablet 00 EVERY Medical MORNING Branch ESCITALOPRA Yes [id number] TAKE ONE Univers M OXALATE 8-02 TABLET BY ity o f 20 mg 00:00: MOUTH [place] tablet 00 EVERY Medical MORNING Branch ESCITALOPRA Yes [id number] TAKE ONE Univers M OXALATE 8-02 TABLET BY ity o f 20 mg 00:00: MOUTH [place] tablet 00 EVERY Medical MORNING Branch ESCITALOPRA Yes [id number] TAKE ONE Univers M OXALATE 8-02 TABLET BY ity o f 20 mg 00:00: MOUTH [place] tablet 00 EVERY Medical MORNING Branch ESCITALOPRA Yes [id number] TAKE ONE Univers M OXALATE 8-02 TABLET BY ity o f 20 mg 00:00: MOUTH [place] tablet 00 EVERY Medical MORNING Branch ESCITALOPRA Yes [id number] TAKE ONE Univers M OXALATE 8-02 TABLET BY ity o f 20 mg 00:00: MOUTH [place] tablet 00 EVERY Medical MORNING Branch buPROPion Yes [id number] 1{tbl} Take 1 Univers HCL, 7-25 tablet by ity of smoking 00:00: mouth in [place] deter, 150 00 the Medical mg Tb12 morning. Branch Then in 3 days take one tablet by mouth twice a day, if the dose is too high just take once daily buPROPion 2022-0 Yes [id number] 1{tbl} Take 1 Univers HCL, 7-25 tablet by ity of smoking 00:00: mouth in [facility], 150 00 the Medical mg Tb12 morning. Branch Then in 3 days take one tablet by mouth twice a day, if the dose is too high just take once daily buPROPion 2022-0 Yes [id number] 1{tbl} Take 1 Univers HCL, 7-25 tablet by ity of smoking 00:00: mouth in [facility], 150 00 the Medical mg Tb12 morning. Branch Then in 3 days take one tablet by mouth twice a day, if the dose is too high just take once daily buPROPion 2022-0 2022- No [id number] 1{tbl} Take 1 Univers HCL, 7-25 08-06 tablet by ity of smoking 00:00: 00:00 mouth in [facility], 150 00 :00 the Medical mg Tb12 morning. Branch Then in 3 days take one tablet by mouth twice a day, if the dose is too high just take once daily varenicline 2022-0 Yes [id number] Take one Univers (CHANTIX 7-13 0.5mg tab ity of STARTING 00:00: by mouth [facility]) 00 once daily Med ical 0.5 mg for 3 Branch (11)- 1 mg days, then (42) tablet one 0.5mg tab twice daily for 4 days, then one 1mg tab twice daily. albuterol 2022-0 Yes [id number] 2{puff} Inhale 2 Univers 90 7-13 Puffs ity of mcg/actuati 00:00: every 6 [place] on inhaler 00 (six) Medical hours as Branch needed for Wheezing or Shortness of Breath. varenicline 2022-0 Yes [id number] Take one Univers (CHANTIX 7-13 0.5mg tab ity of STARTING 00:00: by mouth [facility]) 00 once daily Med ical 0.5 mg for 3 Branch (11)- 1 mg days, then (42) tablet one 0.5mg tab twice daily for 4 days, then one 1mg tab twice daily. albuterol Yes [id number] 2{puff} Inhale 2 Univers 90 7-13 Puffs ity of mcg/actuati 00:00: every 6 [place] on inhaler 00 (six) Medical hours as Branch needed for Wheezing or Shortness of Breath. albuterol Yes [id number] 2{puff} Inhale 2 Univers 90 7-13 Puffs ity of mcg/actuati 00:00: every 6 [place] on inhaler 00 (six) Medical hours as Branch needed for Wheezing or Shortness of Breath. albuterol Yes [id number] 2{puff} Inhale 2 Univers 90 7-13 Puffs ity of mcg/actuati 00:00: every 6 [place] on inhaler 00 (six) Medical hours as Branch needed for Wheezing or Shortness of Breath. albuterol Yes [id number] 2{puff} Inhale 2 Univers 90 7-13 Puffs ity of mcg/actuati 00:00: every 6 [place] on inhaler 00 (six) Medical hours as Branch needed for Wheezing or Shortness of Breath. albuterol Yes [id number] 2{puff} Inhale 2 Univers 90 7-13 Puffs ity of mcg/actuati 00:00: every 6 [place] on inhaler 00 (six) Medical hours as Branch needed for Wheezing or Shortness of Breath. albuterol Yes [id number] 2{puff} Inhale 2 Univers 90 7-13 Puffs ity of mcg/actuati 00:00: every 6 [place] on inhaler 00 (six) Medical hours as Branch needed for Wheezing or Shortness of Breath. albuterol Yes [id number] 2{puff} Inhale 2 Univers 90 7-13 Puffs ity of mcg/actuati 00:00: every 6 [place] on inhaler 00 (six) Medical hours as Branch needed for Wheezing or Shortness of Breath. albuterol Yes [id number] 2{puff} Inhale 2 Univers 90 7-13 Puffs ity of mcg/actuati 00:00: every 6 [place] on inhaler 00 (six) Medical hours as Branch needed for Wheezing or Shortness of Breath. albuterol Yes [id number] 2{puff} Inhale 2 Univers 90 7-13 Puffs ity of mcg/actuati 00:00: every 6 [place] on inhaler 00 (six) Medical hours as Branch needed for Wheezing or Shortness of Breath. albuterol Yes [id number] 2{puff} Inhale 2 Univers 90 7-13 Puffs ity of mcg/actuati 00:00: every 6 [place] on inhaler 00 (six) Medical hours as Branch needed for Wheezing or Shortness of Breath. albuterol Yes [id number] 2{puff} Inhale 2 Univers 90 7-13 Puffs ity of mcg/actuati 00:00: every 6 [place] on inhaler 00 (six) Medical hours as Branch needed for Wheezing or Shortness of Breath. albuterol Yes [id number] 2{puff} Inhale 2 Univers 90 7-13 Puffs ity of mcg/actuati 00:00: every 6 [place] on inhaler 00 (six) Medical hours as Branch needed for Wheezing or Shortness of Breath. albuterol Yes [id number] 2{puff} Inhale 2 Univers 90 7-13 Puffs ity of mcg/actuati 00:00: every 6 [place] on inhaler 00 (six) Medical hours as Branch needed for Wheezing or Shortness of Breath. albuterol 2022- No [id number] 2{puff} Inhale 2 Univers 90 7-13 08-17 Puffs ity of mcg/actuati 00:00: 00:00 every 6 [place] on inhaler 00 :00 (six) Medical hours as Branch needed for Wheezing or Shortness of Breath. albuterol 2022- No [id number] 2{puff} Inhale 2 Univers 90 7-13 08-17 Puffs ity of mcg/actuati 00:00: 00:00 every 6 [place] on inhaler 00 :00 (six) Medical hours as Branch needed for Wheezing or Shortness of Breath. varenicline 2022- No [id number] Take one Univers (CHANTIX 7-13 07-25 0.5mg tab ity o f STARTING 00:00: 00:00 by mouth [place] MONTH BOX) 00 :00 once daily Med ical 0.5 mg for 3 Branch (11)- 1 mg days, then (42) tablet one 0.5mg tab twice daily for 4 days, then one 1mg tab twice daily. [id number] Yes [id number] TAKE ONE Uni vers 12,000-38,0 7-12 CAPSULE BY it y of 00:00: MOUTH [place] unit 00 EVERY Medical capsule MORNING , Branch ONE CAPSULE AT NOON AND 1 CAPSULE IN THE EVENING WITH MEALS [id number] Yes [id number] TAKE ONE Uni vers 12,000-38,0 7-12 CAPSULE BY it y of 00:00: MOUTH [place] unit 00 EVERY Medical capsule MORNING , Branch ONE CAPSULE AT NOON AND 1 CAPSULE IN THE EVENING WITH MEALS CREON Yes [id number] TAKE ONE Uni vers 12,000-38,0 7-12 CAPSULE BY it y of 00:00: MOUTH [place] unit 00 EVERY Medical capsule MORNING , Branch ONE CAPSULE AT NOON AND 1 CAPSULE IN THE EVENING WITH MEALS CREON Yes [id number] TAKE ONE Uni vers 12,000-38,0 7-12 CAPSULE BY it y of 00:00: MOUTH [place] unit 00 EVERY Medical capsule MORNING , Branch ONE CAPSULE AT NOON AND 1 CAPSULE IN THE EVENING WITH MEALS CREON Yes [id number] TAKE ONE [facility] vers 12,000-38,0 7-12 CAPSULE BY it y of 00:00: MOUTH [place] [facility] 00 EVERY Medical capsule MORNING , Branch ONE CAPSULE AT NOON AND 1 CAPSULE IN THE EVENING WITH MEALS CREON Yes [id number] TAKE ONE [facility] vers 12,000-38,0 7-12 CAPSULE BY it y of 00:00: MOUTH [place] [facility] 00 EVERY Medical capsule MORNING , Branch ONE CAPSULE AT NOON AND 1 CAPSULE IN THE EVENING WITH MEALS CREON Yes TAKE ONE [facility] vers 12,000-38,0 7-12 CAPSULE BY it y of 00:00: MOUTH [place] [facility] 00 EVERY Medical capsule MORNING , Branch ONE CAPSULE AT NOON AND 1 CAPSULE IN THE EVENING WITH MEALS CREON Yes [id number] TAKE ONE [facility] vers 12,000-38,0 7-12 CAPSULE BY it y of 00:00: MOUTH [place] [facility] 00 EVERY Medical capsule MORNING , Branch ONE CAPSULE AT NOON AND 1 CAPSULE IN THE EVENING WITH MEALS CREON Yes [id number] TAKE ONE [facility] vers 12,000-38,0 7-12 CAPSULE BY it y of 00:00: MOUTH [place] [facility] 00 EVERY Medical capsule MORNING , Branch ONE CAPSULE AT NOON AND 1 CAPSULE IN THE EVENING WITH MEALS CREON Yes [id number] TAKE ONE [facility] vers 12,000-38,0 7-12 CAPSULE BY it y of 00:00: MOUTH [place] [facility] 00 EVERY Medical capsule MORNING , Branch ONE CAPSULE AT NOON AND 1 CAPSULE IN THE EVENING WITH MEALS CREON Yes [id number] TAKE ONE [facility] vers 12,000-38,0 7-12 CAPSULE BY it y of 00:00: MOUTH [place] [facility] 00 EVERY Medical capsule MORNING , Branch ONE CAPSULE AT NOON AND 1 CAPSULE IN THE EVENING WITH MEALS CREON Yes [id number] TAKE ONE [facility] vers 12,000-38,0 7-12 CAPSULE BY it y of 00:00: MOUTH [place] [facility] 00 EVERY Medical capsule MORNING , Branch ONE CAPSULE AT NOON AND 1 CAPSULE IN THE EVENING WITH MEALS CREON Yes [id number] TAKE ONE [facility] vers 12,000-38,0 7-12 CAPSULE BY it y of 00:00: MOUTH [place] [facility] 00 EVERY Medical capsule MORNING , Branch ONE CAPSULE AT NOON AND 1 CAPSULE IN THE EVENING WITH MEALS CREON Yes [id number] TAKE ONE [facility] vers 12,000-38,0 7-12 CAPSULE BY it y of 00:00: MOUTH [place] [facility] 00 EVERY Medical capsule MORNING , Branch ONE CAPSULE AT NOON AND 1 CAPSULE IN THE EVENING WITH MEALS CREON Yes [id number] TAKE ONE [facility] vers 12,000-38,0 7-12 CAPSULE BY it y of 00:00: MOUTH [place] [facility] 00 EVERY Medical capsule MORNING , Branch ONE CAPSULE AT NOON AND 1 CAPSULE IN THE EVENING WITH MEALS CREON 0 Yes [id number] TAKE ONE [facility] vers 12,000-38,0 7-12 CAPSULE BY it y of 00:00: MOUTH [place] [facility] 00 EVERY Medical capsule MORNING , Branch ONE CAPSULE AT NOON AND 1 CAPSULE IN THE EVENING WITH MEALS CREON Yes [id number] TAKE ONE [facility] vers 12,000-38,0 7-12 CAPSULE BY it y of 00:00: MOUTH [place] [facility] 00 EVERY Medical capsule MORNING , Branch ONE CAPSULE AT NOON AND 1 CAPSULE IN THE EVENING WITH MEALS CREON Yes [id number] TAKE ONE [facility] vers 12,000-38,0 7-12 CAPSULE BY it y of 00:00: MOUTH [place] [facility] 00 EVERY Medical capsule MORNING , Branch ONE CAPSULE AT NOON AND 1 CAPSULE IN THE EVENING WITH MEALS CREON Yes [id number] TAKE ONE [facility] vers 12,000-38,0 7-12 CAPSULE BY it y of 00:00: MOUTH [place] [facility] 00 EVERY Medical capsule MORNING , Branch ONE CAPSULE AT NOON AND 1 CAPSULE IN THE EVENING WITH MEALS CREON Yes [id number] TAKE ONE [facility] vers 12,000-38,0 7-12 CAPSULE BY it y of 00:00: MOUTH [place] [facility] 00 EVERY Medical capsule MORNING , Branch ONE CAPSULE AT NOON AND 1 CAPSULE IN THE EVENING WITH MEALS CREON Yes [id number] TAKE ONE [facility] vers 12,000-38,0 7-12 CAPSULE BY it y of 00:00: MOUTH [place] [facility] 00 EVERY Medical capsule MORNING , Branch ONE CAPSULE AT NOON AND 1 CAPSULE IN THE EVENING WITH MEALS CREON Yes [id number] TAKE ONE [facility] vers 12,000-38,0 7-12 CAPSULE BY it y of 00:00: MOUTH [place] [facility] 00 EVERY Medical capsule MORNING , Branch ONE CAPSULE AT NOON AND 1 CAPSULE IN THE EVENING WITH MEALS CREON 0 Yes [id number] TAKE ONE [facility] vers 12,000-38,0 7-12 CAPSULE BY it y of 00:00: MOUTH [place] [facility] 00 EVERY Medical capsule MORNING , Branch ONE CAPSULE AT NOON AND 1 CAPSULE IN THE EVENING WITH MEALS CREON 0 Yes [id number] TAKE ONE [facility] vers 12,000-38,0 7-12 CAPSULE BY it y of 00 -60,000 00:00: MOUTH [place] [facility] 00 EVERY Medical capsule MORNING , Branch ONE CAPSULE AT NOON AND 1 CAPSULE IN THE EVENING WITH MEALS CREON 2022-0 Yes [id number] TAKE ONE [facility] vers 12,000-38,0 7-12 CAPSULE BY it y of 00 -60,000 00:00: MOUTH [place] [facility] 00 EVERY Medical capsule MORNING , Branch ONE CAPSULE AT NOON AND 1 CAPSULE IN THE EVENING WITH MEALS GABAPENTIN 3-0 Yes [id number] TAKE ONE [facility] 800 mg 7-06 [id number] TABLET BY ity of tablet 00:00: MOUTH [place] 00 EVERY Medical MORNING , Branch ONE TABLET AT NOON AND 1 TABLET IN THE EVENING GABAPENTIN 3-0 Yes [id number] TAKE ONE [facility] 800 mg 7-06 [id number] TABLET BY ity of tablet 00:00: MOUTH [place] 00 EVERY Medical MORNING , Branch ONE TABLET AT NOON AND 1 TABLET IN THE EVENING GABAPENTIN 3-0 Yes [id number] TAKE ONE [facility] 800 mg 7-06 [id number] TABLET BY ity of tablet 00:00: MOUTH [place] 00 EVERY Medical MORNING , Branch ONE TABLET AT NOON AND 1 TABLET IN THE EVENING GABAPENTIN 3-0 Yes [id number] TAKE ONE [facility] 800 mg 7-06 [id number] TABLET BY ity of tablet 00:00: MOUTH [place] 00 EVERY Medical MORNING , Branch ONE TABLET AT NOON AND 1 TABLET IN THE EVENING GABAPENTIN 2023-0 Yes [id number] TAKE ONE [facility] 800 mg 7-06 [id number] TABLET BY ity of tablet 00:00: MOUTH [place] 00 EVERY Medical MORNING , Branch ONE TABLET AT NOON AND 1 TABLET IN THE EVENING GABAPENTIN 3-0 Yes [id number] TAKE ONE [facility] 800 mg 7-06 [id number] TABLET BY ity of tablet 00:00: MOUTH [place] 00 EVERY Medical MORNING , Branch ONE TABLET AT NOON AND 1 TABLET IN THE EVENING GABAPENTIN 2023-0 Yes [id number] TAKE ONE [facility] 800 mg 7-06 [id number] TABLET BY it[facility] of tablet 00:00: MOUTH [place] 00 EVERY Medical MORNING , Branch ONE TABLET AT NOON AND 1 TABLET IN THE EVENING GABAPENTIN 2023-0 Yes [id number] TAKE ONE [facility] 800 mg 7-06 [id number] TABLET BY ity of tablet 00:00: MOUTH [place] 00 EVERY Medical MORNING , Branch ONE TABLET AT NOON AND 1 TABLET IN THE EVENING GABAPENTIN 2023-0 Yes [id number] TAKE ONE [facility] 800 mg 7-06 [id number] TABLET BY it[facility] of tablet 00:00: MOUTH [place] 00 EVERY Medical MORNING , Branch ONE TABLET AT NOON AND 1 TABLET IN THE EVENING GABAPENTIN 2023-0 Yes [id number] TAKE ONE [facility] 800 mg 7-06 [id number] TABLET BY it[facility] of tablet 00:00: MOUTH [place] 00 EVERY Medical MORNING , Branch ONE TABLET AT NOON AND 1 TABLET IN THE EVENING GABAPENTIN 2023-0 Yes [id number] TAKE ONE [facility] 800 mg 7-06 [id number] TABLET BY [facility] of tablet 00:00: MOUTH [place] 00 EVERY Medical MORNING , Branch ONE TABLET AT NOON AND 1 TABLET IN THE EVENING GABAPENTIN 2023-0 Yes [id number] TAKE ONE [facility] 800 mg 7-06 [id number] TABLET BY it[facility] of tablet 00:00: MOUTH [place] 00 EVERY Medical MORNING , Branch ONE TABLET AT NOON AND 1 TABLET IN THE EVENING GABAPENTIN 2023-0 Yes [id number] TAKE ONE [facility] 800 mg 7-06 [id number] TABLET BY [facility] of tablet 00:00: MOUTH [place] 00 EVERY Medical MORNING , Branch ONE TABLET AT NOON AND 1 TABLET IN THE EVENING GABAPENTIN 2023-0 Yes [id number] TAKE ONE [facility] 800 mg 7-06 [id number] TABLET BY [facility] of tablet 00:00: MOUTH [place] 00 EVERY Medical MORNING , Branch ONE TABLET AT NOON AND 1 TABLET IN THE EVENING GABAPENTIN 2023-0 Yes [id number] TAKE ONE [facility] 800 mg 7-06 [id number] TABLET BY [facility] of tablet 00:00: MOUTH [place] 00 EVERY Medical MORNING , Branch ONE TABLET AT NOON AND 1 TABLET IN THE EVENING GABAPENTIN 2023-0 Yes [id number] TAKE ONE [facility] 800 mg 7-06 [id number] TABLET BY it[facility] of tablet 00:00: MOUTH [place] 00 EVERY Medical MORNING , Branch ONE TABLET AT NOON AND 1 TABLET IN THE EVENING GABAPENTIN 2023-0 Yes [id number] TAKE ONE [facility] 800 mg 7-06 [id number] TABLET BY [facility] of tablet 00:00: MOUTH [place] 00 EVERY Medical MORNING , Branch ONE TABLET AT NOON AND 1 TABLET IN THE EVENING GABAPENTIN 2023-0 Yes [id number] TAKE ONE [facility] 800 mg 7-06 [id number] TABLET BY [facility] of tablet 00:00: MOUTH [place] 00 EVERY Medical MORNING , Branch ONE TABLET AT NOON AND 1 TABLET IN THE EVENING GABAPENTIN 2023-0 Yes [id number] TAKE ONE [facility] 800 mg 7-06 [id number] TABLET BY [facility] of tablet 00:00: MOUTH [place] 00 EVERY Medical MORNING , Branch ONE TABLET AT NOON AND 1 TABLET IN THE EVENING GABAPENTIN 2023-0 Yes [id number] TAKE ONE [facility] 800 mg 7-06 [id number] TABLET BY it[facility] of tablet 00:00: MOUTH [place] 00 EVERY Medical MORNING , Branch ONE TABLET AT NOON AND 1 TABLET IN THE EVENING GABAPENTIN 2023-0 Yes [id number] TAKE ONE [facility] 800 mg 7-06 [id number] TABLET BY it[facility] of tablet 00:00: MOUTH [place] 00 EVERY Medical MORNING , Branch ONE TABLET AT NOON AND 1 TABLET IN THE EVENING GABAPENTIN 2023-0 Yes [id number] TAKE ONE [facility] 800 mg 7-06 [id number] TABLET BY it[facility] of tablet 00:00: MOUTH [place] 00 EVERY Medical MORNING , Branch ONE TABLET AT NOON AND 1 TABLET IN THE EVENING GABAPENTIN 2023-0 Yes [id number] TAKE ONE [facility] 800 mg 7-06 [id number] TABLET BY it[facility] of tablet 00:00: MOUTH [place] 00 EVERY Medical MORNING , Branch ONE TABLET AT NOON AND 1 TABLET IN THE EVENING GABAPENTIN 2023-0 Yes [id number] TAKE ONE [facility] 800 mg 7-06 [id number] TABLET BY it[facility] of tablet 00:00: MOUTH [place] 00 EVERY Medical MORNING , Branch ONE TABLET AT NOON AND 1 TABLET IN THE EVENING GABAPENTIN 2023-0 Yes [id number] TAKE ONE [facility] 800 mg 7-06 [id number] TABLET BY it[facility] of tablet 00:00: MOUTH [place] 00 EVERY Medical MORNING , Branch ONE TABLET AT NOON AND 1 TABLET IN THE EVENING ferrous 2023-0 2023- No 300mg Take 300 [facility] ers sulfate 300 6-30 06-30 mg by [facility] mg (60 mg 14:41: 00:00 [place] [facility] [place] [facility]5 mL 15 :00 (two) Medical solution times [place] daily. ferrous 2023-0 202- No 300mg Take 300 [facility] ers sulfate 300 6-30 06-30 mg by [facility] mg (60 mg 14:41: 00:00 [facility] [place]5 mL 15 :00 (two) Medical solution times [place] daily. omeprazole 2023-0 Yes [id number] Take one [facility] 40 mg 6-30 capsule by [facility] of capsule 00:00: mouth [place] 00 twice Medical daily for Branch one week then one capsule by mouth daily omeprazole 2023-0 Yes [id number] Take one [facility] 40 mg 6-30 capsule by ity of capsule 00:00: mouth [place] 00 twice Medical daily for Branch one week then one capsule by mouth daily omeprazole 2023-0 Yes [id number] Take one [facility] 40 mg 6-30 capsule by ity of capsule 00:00: mouth [place] 00 twice Medical daily for Branch one week then one capsule by mouth daily omeprazole 2023-0 Yes [id number] Take one [facility] 40 mg 6-30 capsule by it[facility] of capsule 00:00: mouth [place] 00 twice Medical daily for Branch one week then one capsule by mouth daily omeprazole 2023-0 Yes [id number] Take one [facility] 40 mg 6-30 capsule by [facility] of capsule 00:00: mouth [place] 00 twice Medical daily for Branch one week then one capsule by mouth daily omeprazole 2023-0 Yes [id number] Take one [facility] 40 mg 6-30 capsule by [facility] of capsule 00:00: mouth [place] 00 twice Medical daily for Branch one week then one capsule by mouth daily omeprazole 2023-0 Yes [id number] Take one [facility] 40 mg 6-30 capsule by ity of capsule 00:00: mouth [place] 00 twice Medical daily for Branch one week then one capsule by mouth daily omeprazole 2023-0 Yes [id number] Take one [facility] 40 mg 6-30 capsule by ity of capsule 00:00: mouth [place] 00 twice Medical daily for Branch one week then one capsule by mouth daily omeprazole 2023-0 Yes [id number] Take one [facility] 40 mg 6-30 capsule by ity of capsule 00:00: mouth [place] 00 twice Medical daily for Branch one week then one capsule by mouth daily omeprazole 2023-0 Yes [id number] Take one [facility] 40 mg 6-30 capsule by [facility] of capsule 00:00: mouth [place] 00 twice Medical daily for Branch one week then one capsule by mouth daily omeprazole 2023-0 Yes [id number] Take one [facility] 40 mg 6-30 capsule by ity of capsule 00:00: mouth [place] 00 twice Medical daily for Branch one week then one capsule by mouth daily omeprazole 2023-0 Yes [id number] Take one [facility] 40 mg 6-30 capsule by [facility] of capsule 00:00: mouth [place] 00 twice Medical daily for Branch one week then one capsule by mouth daily omeprazole 2023-0 Yes [id number] Take one [facility] 40 mg 6-30 capsule by [facility] of capsule 00:00: mouth [place] 00 twice Medical daily for Branch one week then one capsule by mouth daily omeprazole 2023-0 Yes [id number] Take one [facility] 40 mg 6-30 capsule by [facility]y of capsule 00:00: mouth [place] 00 twice Medical daily for Branch one week then one capsule by mouth daily omeprazole 2023-0 Yes [id number] Take one [facility] 40 mg 6-30 capsule by [facility] of capsule 00:00: mouth [place] 00 twice Medical daily for Branch one week then one capsule by mouth daily omeprazole 2023-0 Yes [id number] Take one [facility] 40 mg 6-30 capsule by ity of capsule 00:00: mouth [place] 00 twice Medical daily for Branch one week then one capsule by mouth daily omeprazole 2023-0 Yes [id number] Take one [facility] 40 mg 6-30 capsule by ity of capsule 00:00: mouth [place] 00 twice Medical daily for Branch one week then one capsule by mouth daily omeprazole 2023-0 Yes [id number] Take one [facility] 40 mg 6-30 capsule by ity of capsule 00:00: mouth [place] 00 twice Medical daily for Branch one week then one capsule by mouth daily omeprazole 2023-0 Yes [id number] Take one [facility] 40 mg 6-30 capsule by ity of capsule 00:00: mouth [place] 00 twice Medical daily for Branch one week then one capsule by mouth daily omeprazole 2023-0 Yes [id number] Take one [facility] 40 mg 6-30 capsule by ity of capsule 00:00: mouth [place] 00 twice Medical daily for Branch one week then one capsule by mouth daily omeprazole 2023-0 Yes [id number] Take one [facility] 40 mg 6-30 capsule by ity of capsule 00:00: mouth [place] 00 twice Medical daily for Branch one week then one capsule by mouth daily omeprazole 2023-0 Yes [id number] Take one [facility] 40 mg 6-30 capsule by ity of capsule 00:00: mouth [place] 00 twice Medical daily for Branch one week then one capsule by mouth daily omeprazole 2023-0 Yes [id number] Take one [facility] 40 mg 6-30 capsule by ity of capsule 00:00: mouth [place] 00 twice Medical daily for Branch one week then one capsule by mouth daily omeprazole 2023-0 Yes [id number] Take one [facility] 40 mg 6-30 capsule by ity of capsule 00:00: mouth [place] 00 twice Medical daily for Branch one week then one capsule by mouth daily omeprazole 2023-0 Yes [id number] Take one [facility] 40 mg 6-30 capsule by ity of capsule 00:00: mouth [place] 00 twice Medical daily for Branch one week then one capsule by mouth daily omeprazole 2023-0 Yes [id number] Take one [facility] 40 mg 6-30 capsule by ity of capsule 00:00: mouth [place] 00 twice Medical daily for Branch one week then one capsule by mouth daily omeprazole 2023-0 Yes [id number] Take one [facility] 40 mg 6-30 capsule by ity of capsule 00:00: mouth [place] 00 twice Medical daily for Branch one week then one capsule by mouth daily omeprazole 2023-0 Yes [id number] Take one [facility] 40 mg 6-30 capsule by ity of capsule 00:00: mouth [place] 00 twice Medical daily for Branch one week then one capsule by mouth daily levothyroxi 3-0 Yes [id number] 150ug Take 1 [facility] ne 150 mcg 5-31 tablet by [facility] of tablet 00:00: mouth [place] 00 every Medical morning. Branch levothyroxi 3-0 Yes [id number] 150ug Take 1 [facility] ne 150 mcg 5-31 tablet by ity of tablet 00:00: mouth [place] 00 every Medical morning. Branch levothyroxi 3-0 Yes [id number] 150ug Take 1 [facility] ne 150 mcg 5-31 tablet by ity of tablet 00:00: mouth [place] 00 every Medical morning. Branch levothyroxi 3-0 Yes [id number] 150ug Take 1 [facility] ne 150 mcg 5-31 tablet by ity of tablet 00:00: mouth [place] 00 every Medical morning. Branch levothyroxi 3-0 Yes [id number] 150ug Take 1 [facility] ne 150 mcg 5-31 tablet by ity of tablet 00:00: mouth [place] 00 every Medical morning. Branch levothyroxi 3-0 Yes [id number] 150ug Take 1 [facility] ne 150 mcg 5-31 tablet by ity of tablet 00:00: mouth [place] 00 every Medical morning. Branch levothyroxi 2023-0 Yes [id number] 150ug Take 1 [facility] ne 150 mcg 5-31 tablet by ity of tablet 00:00: mouth [place] 00 every Medical morning. Branch levothyroxi 2023-0 Yes [id number] 150ug Take 1 [facility] ne 150 mcg 5-31 tablet by ity of tablet 00:00: mouth [place] 00 every Medical morning. Branch levothyroxi 3-0 Yes [id number] 150ug Take 1 [facility] ne 150 mcg 5-31 tablet by ity of tablet 00:00: mouth [place] 00 every Medical morning. Branch levothyroxi 3-0 Yes [id number] 150ug Take 1 [facility] ne 150 mcg 5-31 tablet by ity of tablet 00:00: mouth [place] 00 every Medical morning. Branch levothyroxi 3-0 Yes [id number] 150ug Take 1 [facility] ne 150 mcg 5-31 tablet by ity of tablet 00:00: mouth [place] 00 every Medical morning. Branch levothyroxi 3-0 Yes [id number] 150ug Take 1 [facility] ne 150 mcg 5-31 tablet by ity of tablet 00:00: mouth [place] 00 every Medical morning. Branch levothyroxi 3-0 Yes [id number] 150ug Take 1 [facility] ne 150 mcg 5-31 tablet by ity of tablet 00:00: mouth [place] 00 every Medical morning. Branch levothyroxi 3-0 Yes [id number] 150ug Take 1 [facility] ne 150 mcg 5-31 tablet by ity of tablet 00:00: mouth [place] 00 every Medical morning. Branch levothyroxi 3-0 Yes [id number] 150ug Take 1 [facility] ne 150 mcg 5-31 tablet by ity of tablet 00:00: mouth [place] 00 every Medical morning. Branch levothyroxi 3-0 Yes [id number] 150ug Take 1 [facility] ne 150 mcg 5-31 tablet by ity of tablet 00:00: mouth [place] 00 every Medical morning. Branch levothyroxi 3-0 Yes [id number] 150ug Take 1 [facility] ne 150 mcg 5-31 tablet by ity of tablet 00:00: mouth [place] 00 every Medical morning. Branch levothyroxi 3-0 Yes [id number] 150ug Take 1 [facility] ne 150 mcg 5-31 tablet by ity of tablet 00:00: mouth [place] 00 every Medical morning. Branch levothyroxi 3-0 Yes [id number] 150ug Take 1 [facility] ne 150 mcg 5-31 tablet by ity of tablet 00:00: mouth [place] 00 every Medical morning. Branch levothyroxi 3-0 Yes [id number] 150ug Take 1 [facility] ne 150 mcg 5-31 tablet by ity of tablet 00:00: mouth [place] 00 every Medical morning. Branch levothyroxi 3-0 Yes [id number] 150ug Take 1 [facility] ne 150 mcg 5-31 tablet by ity of tablet 00:00: mouth [place] 00 every Medical morning. Branch levothyroxi 3-0 Yes [id number] 150ug Take 1 [facility] ne 150 mcg 5-31 tablet by ity of tablet 00:00: mouth [place] 00 every Medical morning. Branch levothyroxi 3-0 Yes [id number] 150ug Take 1 [facility] ne 150 mcg 5-31 tablet by ity of tablet 00:00: mouth [place] 00 every Medical morning. Branch levothyroxi 3-0 Yes [id number] 150ug Take 1 [facility] ne 150 mcg 5-31 tablet by ity of tablet 00:00: mouth [place] 00 every Medical morning. Branch levothyroxi 3-0 Yes [id number] 150ug Take 1 [facility] ne 150 mcg 5-31 tablet by ity of tablet 00:00: mouth [place] 00 every Medical morning. Branch levothyroxi 3-0 Yes [id number] 150ug Take 1 [facility] ne 150 mcg 5-31 tablet by ity of tablet 00:00: mouth [place] 00 every Medical morning. Branch levothyroxi 3-0 Yes [id number] 150ug Take 1 [facility] ne 150 mcg 5-31 tablet by ity of tablet 00:00: mouth [place] 00 every Medical morning. Branch levothyroxi 3-0 Yes [id number] 150ug Take 1 [facility] ne 150 mcg 5-31 tablet by ity of tablet 00:00: mouth [place] 00 every Medical morning. Branch levothyroxi 3-0 Yes [id number] 150ug Take 1 [facility] ne 150 mcg 5-31 tablet by ity of tablet 00:00: mouth [place] 00 every Medical morning. Branch levothyroxi 3-0 Yes [id number] 150ug Take 1 [facility] ne 150 mcg 5-31 tablet by ity of tablet 00:00: mouth [place] 00 every Medical morning. Branch levothyroxi 3-0 Yes [id number] 150ug Take 1 [facility] ne 150 mcg 5-31 tablet by ity of tablet 00:00: mouth [place] 00 every Medical morning. Branch levothyroxi 3-0 Yes [id number] 150ug Take 1 [facility] ne 150 mcg 5-31 tablet by ity of tablet 00:00: mouth [place] 00 every Medical morning. Branch levothyroxi 2023-0 Yes [id number] 150ug Take 1 [facility] ne 150 mcg 5-31 tablet by ity of tablet 00:00: mouth [place] 00 every Medical morning. Branch levothyroxi 2023-0 Yes [id number] 150ug Take 1 [facility] ne 150 mcg 5-31 tablet by ity of tablet 00:00: mouth [place] 00 every Medical morning. Branch GABAPENTIN 2023-0 Yes [id number] TAKE ONE [facility] 800 mg 5-03 [id number] TABLET BY it[facility] of tablet 00:00: MOUTH [place] 00 EVERY Medical MORNING , Branch ONE TABLET AT NOON AND 1 TABLET IN THE EVENING GABAPENTIN 2023-0 Yes [id number] TAKE ONE [facility] 800 mg 5-03 [id number] TABLET BY ity of tablet 00:00: MOUTH [place] 00 EVERY Medical MORNING , Branch ONE TABLET AT NOON AND 1 TABLET IN THE EVENING GABAPENTIN 2023-0 Yes [id number] TAKE ONE [facility] 800 mg 5-03 [id number] TABLET BY ity of tablet 00:00: MOUTH [place] 00 EVERY Medical MORNING , Branch ONE TABLET AT NOON AND 1 TABLET IN THE EVENING GABAPENTIN 2023-0 Yes [id number] TAKE ONE [facility] 800 mg 5-03 [id number] TABLET BY ity of tablet 00:00: MOUTH [place] 00 EVERY Medical MORNING , Branch ONE TABLET AT NOON AND 1 TABLET IN THE EVENING GABAPENTIN 2023-0 Yes [id number] TAKE ONE [facility] 800 mg 5-03 [id number] TABLET BY ity of tablet 00:00: MOUTH [place] 00 EVERY Medical MORNING , Branch ONE TABLET AT NOON AND 1 TABLET IN THE EVENING GABAPENTIN 2023-0 Yes [id number] TAKE ONE [facility] 800 mg 5-03 [id number] TABLET BY ity of tablet 00:00: MOUTH [place] 00 EVERY Medical MORNING , Branch ONE TABLET AT NOON AND 1 TABLET IN THE EVENING GABAPENTIN 2023-0 Yes [id number] TAKE ONE [facility] 800 mg 5-03 [id number] TABLET BY ity of tablet 00:00: MOUTH [place] 00 EVERY Medical MORNING , Branch ONE TABLET AT NOON AND 1 TABLET IN THE EVENING GABAPENTIN 2023-0 Yes [id number] TAKE ONE [facility] 800 mg 5-03 [id number] TABLET BY ity of tablet 00:00: MOUTH [place] 00 EVERY Medical MORNING , Branch ONE TABLET AT NOON AND 1 TABLET IN THE EVENING GABAPENTIN 2023-0 Yes [id number] TAKE ONE [facility] 800 mg 5-03 [id number] TABLET BY ity of tablet 00:00: MOUTH [place] 00 EVERY Medical MORNING , Branch ONE TABLET AT NOON AND 1 TABLET IN THE EVENING GABAPENTIN 3-0 Yes [id number] TAKE ONE [facility] 800 mg 5-03 [id number] TABLET BY ity of tablet 00:00: MOUTH [place] 00 EVERY Medical MORNING , Branch ONE TABLET AT NOON AND 1 TABLET IN THE EVENING GABAPENTIN 3-0 Yes [id number] TAKE ONE [facility] 800 mg 5-03 [id number] TABLET BY ity of tablet 00:00: MOUTH [place] 00 EVERY Medical MORNING , Branch ONE TABLET AT NOON AND 1 TABLET IN THE EVENING GABAPENTIN 3-0 Yes [id number] TAKE ONE [facility] 800 mg 5-03 [id number] TABLET BY ity of tablet 00:00: MOUTH [place] 00 EVERY Medical MORNING , Branch ONE TABLET AT NOON AND 1 TABLET IN THE EVENING GABAPENTIN 3-0 Yes [id number] TAKE ONE [facility] 800 mg 5-03 [id number] TABLET BY ity of tablet 00:00: MOUTH [place] 00 EVERY Medical MORNING , Branch ONE TABLET AT NOON AND 1 TABLET IN THE EVENING GABAPENTIN 2022-0 2022- No [id number] TAKE ONE [facility] 800 mg 5-03 -06 [id number] TABLET BY ity o f tablet 00:00: 00:00 MOUTH [place] 00 :00 EVERY Medical MORNING , Branch ONE TABLET AT NOON AND 1 TABLET IN THE EVENING levothyroxi 2021-04 Yes [id number] 150ug Take 1 [facility] ne 150 mcg 1-07 tablet by ity of tablet 00:00: mouth [place] 00 every Medical morning. Branch levothyroxi 2021-04 Yes [id number] 150ug Take 1 [facility] ne 150 mcg 1-07 tablet by ity of tablet 00:00: mouth [place] 00 every Medical morning. Branch levothyroxi 2021-04 Yes [id number] 150ug Take 1 [facility] ne 150 mcg 1-07 tablet by ity of tablet 00:00: mouth [place] 00 every Medical morning. Branch levothyroxi 2021-04 Yes [id number] 150ug Take 1 [facility] ne 150 mcg 1-07 tablet by ity of tablet 00:00: mouth [place] 00 every Medical morning. Branch levothyroxi 2021-04 Yes [id number] 150ug Take 1 [facility] ne 150 mcg 1-07 tablet by ity of tablet 00:00: mouth [place] 00 every Medical morning. Branch levothyroxi 2021-04- No [id number] 150ug Take 1 [facility] ne 150 mcg 04-07 tablet by ity of tablet 00:00: 00:00 mouth [place] 00 :00 every Medical morning. Branch levothyroxi 2021-04- No [id number] 150ug Take 1 [facility] ne 150 mcg 04-07 tablet by ity of tablet 00:00: 00:00 mouth [place] 00 :00 every Medical morning. Branch levothyroxi 2021-04- No [id number] 150ug Take 1 [facility] ne 150 mcg 04-07 tablet by ity of tablet 00:00: 00:00 mouth [place] 00 :00 every Medical morning. Branch levothyroxi 2021-04- No [id number] 150ug Take 1 [facility] ne 150 mcg 04-07 tablet by ity of tablet 00:00: 00:00 mouth [place] 00 :00 every Medical morning. Branch levothyroxi 2021-04- No [id number] 150ug Take 1 [facility] ne 150 mcg 04-07 tablet by ity of tablet 00:00: 00:00 mouth [place] 00 :00 every Medical morning. Branch levothyroxi 2021-04 Yes [id number] TAKE 1 [facility] ne 137 mcg 1-04 TABLET BY ity of tablet 00:00: MOUTH [place] 00 EVERY Medical OTHER DAY Branch levothyroxi 2021-04 Yes [id number] TAKE 1 [facility] ne 137 mcg 1-04 TABLET BY ity of tablet 00:00: MOUTH [place] 00 EVERY Medical OTHER DAY Branch levothyroxi 2021-04- No [id number] TAKE 1 [facility] ne 137 mcg 1-04 -07 TABLET BY ity of tablet 00:00: 00:00 MOUTH [place] 00 :00 EVERY Medical OTHER DAY Branch levothyroxi 2021-04- No [id number] TAKE 1 [facility] ne 137 mcg 1-04 11-07 TABLET BY ity of tablet 00:00: 00:00 MOUTH [place] 00 :00 EVERY Medical OTHER DAY Branch levothyroxi 2021-04 Yes [id number] TAKE 1 [facility] ne 137 mcg 0-11 TABLET BY ity of tablet 00:00: MOUTH [place] 00 EVERY Medical OTHER DAY Branch levothyroxi 2021-04 Yes [id number] TAKE 1 [facility] ne 137 mcg 0-11 TABLET BY ity of tablet 00:00: MOUTH [place] 00 EVERY Medical OTHER DAY Branch levothyroxi 2021-04- No [id number] TAKE 1 [facility] ne 137 mcg 0-11 02-02 TABLET BY ity of tablet 00:00: 00:00 MOUTH [place] 00 :00 EVERY Medical OTHER DAY Branch levothyroxi 2021-04- No [id number] TAKE 1 [facility] ne 137 mcg 0-11 - TABLET BY ity of tablet 00:00: 00:00 MOUTH [place] 00 :00 EVERY Medical OTHER DAY Branch albuterol 2021- No 2.5mg Inhale 2.5 [facility] 2.5 mg /3 8-29 08-29 mg every 4 ity of mL (0.083 11:45: 00:00 (four) [facility]) 37 :00 hours as Medical nebulizer needed for Bran ch solution Wheezing, Shortness of Breath or Bronchospa sm. ketoconazol Yes [id number] Apply to [facility] e 2 % 8-29 area(s) ity of shampoo 00:[place] 00 as needed Medical for Branch Itching. escitalopra Yes [id number] 20mg Take 1 [facility] m oxalate 8-29 tablet by ity o f 20 mg 00:00: mouth in [place] tablet 00 the Medical morning. Branch pantoprazol Yes [id number] 40mg Take 20 mL [facility] e 2 mg/mL 8-29 by mouth ity of oral 00:00: in the [place] suspension 00 morning. Medic al Branch lipase-prot Yes 1{capsu Take 1 U nivers ease-amylas 8-29 le} capsule by it y of e (CREON) 00:00: [place] 12,000-38,0 00 the Medical 00 -60,000 morning Branch unit and 1 capsule capsule at noon and 1 capsule in the evening. Take with meals. ARIPiprazol Yes [id number] 5mg Take 1 [facility] e 5 mg 8-29 tablet by ity of tablet 00:00: mouth in [place] 00 the Medical morning. Branch albuterol Yes 2.5mg Inhale 3 [facility] vers 2.5 mg /3 8-29 mL every 4 ity of mL (0.083 00:00: (four) [place] %) 00 hours as Medical nebulizer needed for Bran ch solution Wheezing, Shortness of Breath or Bronchospa sm. gabapentin Yes [id number] 800mg Take 1 [facility] 800 mg 8-29 [id number] tablet by ity of tablet 00:00: mouth in [place] 00 the Medical morning Branch and 1 tablet at noon and 1 tablet in the evening. ketoconazol Yes [id number] Apply to [facility] e 2 % 8-29 area(s) ity of shampoo 00:00: [place] 00 as needed Medical for Branch Itching. escitalopra Yes [id number] 20mg Take 1 [facility] m oxalate 8-29 tablet by ity o f 20 mg 00:00: mouth in [place] tablet 00 the Medical morning. Branch pantoprazol Yes [id number] 40mg Take 20 mL [facility] e 2 mg/mL 8-29 by mouth ity of oral 00:00: in the [place] suspension 00 morning. Medic al Branch lipase-prot Yes 1{capsu Take 1 U nivers ease-amylas 8-29 le} capsule by it y of e (CREON) 00:00: mouth in [facility] 12,000-38,0 00 the Medical 00 -60,000 morning Branch unit and 1 capsule capsule at noon and 1 capsule in the evening. Take with meals. ARIPiprazol Yes [id number] 5mg Take 1 [facility] e 5 mg 8-29 tablet by ity of tablet 00:00: mouth in [place] 00 the Medical morning. Branch albuterol Yes 2.5mg Inhale 3 Uni vers 2.5 mg /3 8-29 mL every 4 ity of mL (0.083 00:00: (four) [place] %) 00 hours as Medical nebulizer needed for Bran ch solution Wheezing, Shortness of Breath or Bronchospa sm. gabapentin Yes [id number] 800mg Take 1 [facility] 800 mg 8-29 [id number] tablet by ity of tablet 00:00: mouth in [place] 00 the Medical morning Branch and 1 tablet at noon and 1 tablet in the evening. ketoconazol Yes [id number] Apply to [facility] e 2 % 8-29 area(s) ity of shampoo 00:00: [place] 00 as needed Medical for Branch Itching. escitalopra Yes [id number] 20mg Take 1 [facility] m oxalate 8-29 tablet by ity o f 20 mg 00:00: mouth in [place] tablet 00 the Medical morning. Branch pantoprazol Yes [id number] 40mg Take 20 mL [facility] e 2 mg/mL 8-29 by mouth ity of oral 00:00: in the [place] suspension 00 morning. Medic al Branch lipase-prot Yes 1{capsu Take 1 U nivers ease-amylas 8-29 le} capsule by it y of e (CREON) 00:00: [place] 12,000-38,0 00 the Medical 00 -60,000 morning Branch unit and 1 capsule capsule at noon and 1 capsule in the evening. Take with meals. ARIPiprazol Yes [id number] 5mg Take 1 [facility] e 5 mg 8-29 tablet by ity of tablet 00:00: mouth in [place] 00 the morning. Branch albuterol Yes 2.5mg Inhale 3 Uni vers 2.5 mg /3 8-29 mL every 4 ity of mL (0.083 00:00: (four) [place] %) 00 hours as Medical nebulizer needed for Bran ch solution Wheezing, Shortness of Breath or Bronchospa sm. gabapentin Yes [id number] 800mg Take 1 [facility] 800 mg 8-29 [id number] tablet by ity of tablet 00:00: mouth in [place] 00 the Medical morning Branch and 1 tablet at noon and 1 tablet in the evening. ketoconazol Yes [id number] Apply to [facility] e 2 % 8-29 area(s) ity of shampoo 00:00: [place] 00 as needed Medical for Branch Itching. escitalopra Yes [id number] 20mg Take 1 [facility] m oxalate 8-29 tablet by ity o f 20 mg 00:00: mouth in [place] tablet 00 the Medical morning. Branch pantoprazol Yes [id number] 40mg Take 20 mL [facility] e 2 mg/mL 8-29 by mouth ity of oral 00:00: in the [place] suspension 00 morning. Medic al Branch lipase-prot Yes 1{capsu Take 1 U nivers ease-amylas 8-29 le} capsule by it y of e (CREON) 00:00: mouth in [facility] -, 00 the Medical morning Branch unit and 1 capsule capsule at noon and 1 capsule in the evening. Take with meals. ARIPiprazol Yes [id number] 5mg Take 1 [facility] e 5 mg 8-29 tablet by ity of tablet 00:00: mouth in [place] 00 the morning. Branch albuterol Yes 2.5mg Inhale 3 Uni vers 2.5 mg /3 8-29 mL every 4 ity of mL (0.083 00:00: (four) [place] %) 00 hours as Medical nebulizer needed for Bran ch solution Wheezing, Shortness of Breath or Bronchospa sm. gabapentin Yes [id number] 800mg Take 1 [facility] 800 mg 8-29 [id number] tablet by ity of tablet 00:00: mouth in [place] 00 the Medical morning Branch and 1 tablet at noon and 1 tablet in the evening. ketoconazol Yes [id number] Apply to [facility] e 2 % 8-29 area(s) ity of shampoo 00:00: once daily [facility] 00 as needed Medical for Branch Itching. escitalopra Yes [id number] 20mg Take 1 [facility] m oxalate 8-29 tablet by ity o f 20 mg 00:00: mouth in [place] tablet 00 the morning. Branch pantoprazol Yes [id number] 40mg Take 20 mL [facility] e 2 mg/mL 8-29 by mouth ity of oral 00:00: in the [place] suspension 00 morning. Medic al Branch lipase-prot Yes 1{capsu Take 1 U nivers ease-amylas 8-29 le} capsule by it y of e (CREON) 00:00: mouth in [facility] -,0 00 the Medical morning Branch unit and 1 capsule capsule at noon and 1 capsule in the evening. Take with meals. ARIPiprazol Yes [id number] 5mg Take 1 [facility] e 5 mg 8-29 tablet by ity of tablet 00:00: mouth in [place] 00 the Medical morning. Branch albuterol 0 Yes 2.5mg Inhale 3 Uni vers 2.5 mg /3 8-29 mL every 4 ity of mL (0.083 00:00: (four) [place] %) 00 hours as Medical nebulizer needed for Bran ch solution Wheezing, Shortness of Breath or Bronchospa sm. gabapentin 0 Yes [id number] 800mg Take 1 [facility] 800 mg 8-29 [id number] tablet by ity of tablet 00:00: mouth in [place] 00 the Medical morning Branch and 1 tablet at noon and 1 tablet in the evening. ketoconazol 0 Yes [id number] Apply to [facility] e 2 % 8-29 area(s) ity of shampoo 00:00: [place] 00 as needed Medical for Branch Itching. escitalopra Yes [id number] 20mg Take 1 [facility] m oxalate 8-29 tablet by ity o f 20 mg 00:00: mouth in [facility] 00 the Medical morning. Branch pantoprazol Yes [id number] 40mg Take 20 mL [facility] e 2 mg/mL 8-29 by mouth ity of oral 00:00: in the [facility] 00 morning. Medic al Branch lipase-prot Yes 1{capsu Take 1 U nivers ease-amylas 8-29 le} capsule by it y of e (CREON) 00:00: [place] 12,000-38,0 00 the Medical 00 -60,000 morning Branch unit and 1 capsule capsule at noon and 1 capsule in the evening. Take with meals. ARIPiprazol 0 Yes [id number] 5mg Take 1 [facility] e 5 mg 8-29 tablet by ity of tablet 00:00: mouth in [place] 00 the Medical morning. Branch albuterol 0 Yes 2.5mg Inhale 3 Uni vers 2.5 mg /3 8-29 mL every 4 ity of mL (0.083 00:00: (four) [place] %) 00 hours as Medical nebulizer needed for Bran ch solution Wheezing, Shortness of Breath or Bronchospa sm. gabapentin 2021-0 Yes [id number] 800mg Take 1 [facility] 800 mg 8-29 [id number] tablet by ity of tablet 00:00: mouth in [place] 00 the Medical morning Branch and 1 tablet at noon and 1 tablet in the evening. ketoconazol Yes [id number] Apply to [facility] e 2 % 8-29 area(s) ity of shampoo 00:00: [place] 00 as needed Medical for Branch Itching. escitalopra Yes [id number] 20mg Take 1 [facility] m oxalate 8-29 tablet by ity o f 20 mg 00:00: mouth in [place] tablet 00 the Medical morning. Branch pantoprazol Yes [id number] 40mg Take 20 mL [facility] e 2 mg/mL 8-29 by mouth ity of oral 00:00: in the [place] suspension 00 morning. Medic al Branch lipase-prot Yes 1{capsu Take 1 U nivers ease-amylas 8-29 le} capsule by it y of e (CREON) 00:00: [place] 12,000-38,0 00 the Medical 00 -60,000 morning Branch unit and 1 capsule capsule at noon and 1 capsule in the evening. Take with meals. ARIPiprazol Yes [id number] 5mg Take 1 [facility] e 5 mg 8-29 tablet by ity of tablet 00:00: mouth in [place] 00 the Medical morning. Branch albuterol Yes 2.5mg Inhale 3 Uni vers 2.5 mg /3 8-29 mL every 4 ity of mL (0.083 00:00: (four) [place] %) 00 hours as Medical nebulizer needed for Bran ch solution Wheezing, Shortness of Breath or Bronchospa sm. gabapentin Yes [id number] 800mg Take 1 [facility] 800 mg 8-29 [id number] tablet by ity of tablet 00:00: mouth in [place] 00 the Medical morning Branch and 1 tablet at noon and 1 tablet in the evening. ketoconazol Yes [id number] Apply to [facility] e 2 % 8-29 area(s) ity of shampoo 00:00: [place] 00 as needed Medical for Branch Itching. escitalopra Yes [id number] 20mg Take 1 [facility] m oxalate 8-29 tablet by ity o f 20 mg 00:00: mouth in [place] tablet 00 the Medical morning. Branch pantoprazol Yes [id number] 40mg Take 20 mL [facility] e 2 mg/mL 8-29 by mouth ity of oral 00:00: in the [place] suspension 00 morning. Medic al Branch lipase-prot Yes 1{capsu Take 1 U nivers ease-amylas 8-29 le} capsule by it y of e (CREON) 00:00: [facility] the Medical morning Branch unit and 1 capsule capsule at noon and 1 capsule in the evening. Take with meals. ARIPiprazol Yes [id number] 5mg Take 1 [facility] e 5 mg 8-29 tablet by ity of tablet 00:00: mouth in [place] 00 the morning. Branch albuterol Yes 2.5mg Inhale 3 Uni vers 2.5 mg /3 8-29 mL every 4 ity of mL (0.083 00:00: (four) [place] %) 00 hours as Medical nebulizer needed for Bran ch solution Wheezing, Shortness of Breath or Bronchospa sm. gabapentin Yes [id number] 800mg Take 1 [facility] 800 mg 8-29 [id number] tablet by ity of tablet 00:00: mouth in [place] 00 the Medical morning Branch and 1 tablet at noon and 1 tablet in the evening. ketoconazol Yes [id number] Apply to [facility] e 2 % 8-29 area(s) ity of shampoo 00:00: [place] 00 as needed Medical for Branch Itching. escitalopra Yes [id number] 20mg Take 1 [facility] m oxalate 8-29 tablet by ity o f 20 mg 00:00: mouth in [place] tablet 00 the morning. Branch pantoprazol Yes [id number] 40mg Take 20 mL [facility] e 2 mg/mL 8-29 by mouth ity of oral 00:00: in the [place] suspension 00 morning. Medic al Branch lipase-prot Yes 1{capsu Take 1 U nivers ease-amylas 8-29 le} capsule by it y of e (CREON) 00:00: mouth in [facility] -,0 00 the Medical morning Branch unit and 1 capsule capsule at noon and 1 capsule in the evening. Take with meals. ARIPiprazol Yes [id number] 5mg Take 1 [facility] e 5 mg 8-29 tablet by ity of tablet 00:00: mouth in [place] 00 the Medical morning. Branch albuterol Yes 2.5mg Inhale 3 Uni vers 2.5 mg /3 8-29 mL every 4 ity of mL (0.083 00:00: (four) [place] %) 00 hours as Medical nebulizer needed for Bran ch solution Wheezing, Shortness of Breath or Bronchospa sm. gabapentin 0 Yes [id number] 800mg Take 1 [facility] 800 mg 8-29 [id number] tablet by ity of tablet 00:00: mouth in [place] 00 the Medical morning Branch and 1 tablet at noon and 1 tablet in the evening. ketoconazol Yes [id number] Apply to [facility] e 2 % 8-29 area(s) ity of shampoo 00:00: once daily [facility] 00 as needed Medical for Branch Itching. escitalopra Yes [id number] 20mg Take 1 [facility] m oxalate 8-29 tablet by ity o f 20 mg 00:00: mouth in [facility] 00 the Medical morning. Branch pantoprazol Yes [id number] 40mg Take 20 mL [facility] e 2 mg/mL 8-29 by mouth ity of oral 00:00: in the [place] [facility] 00 morning. Medic al Branch lipase-prot Yes 1{capsu Take 1 U nivers ease-amylas 8-29 le} capsule by it y of e (CREON) 00:00: [place] 12,000-38,0 00 the Medical 00 -60,000 morning Branch unit and 1 capsule capsule at noon and 1 capsule in the evening. Take with meals. ARIPiprazol Yes [id number] 5mg Take 1 [facility] e 5 mg 8-29 tablet by ity of tablet 00:00: mouth in [place] 00 the Medical morning. Branch albuterol Yes 2.5mg Inhale 3 Uni vers 2.5 mg /3 8-29 mL every 4 ity of mL (0.083 00:00: (four) [place] %) 00 hours as Medical nebulizer needed for Bran ch solution Wheezing, Shortness of Breath or Bronchospa sm. gabapentin Yes [id number] 800mg Take 1 [facility] 800 mg 8-29 [id number] tablet by ity of tablet 00:00: mouth in [place] 00 the Medical morning Branch and 1 tablet at noon and 1 tablet in the evening. ketoconazol Yes [id number] Apply to [facility] e 2 % 8-29 area(s) ity of shampoo 00:00: [place] daily [place] 00 as needed Medical for Branch Itching. escitalopra Yes [id number] 20mg Take 1 [facility] m oxalate 8-29 tablet by ity o f 20 mg 00:00: mouth in [place] tablet 00 the Medical morning. Branch pantoprazol Yes [id number] 40mg Take 20 mL [facility] e 2 mg/mL 8-29 by mouth ity of oral 00:00: in the [place] suspension 00 morning. Medic al Branch lipase-prot Yes 1{capsu Take 1 U nivers ease-amylas 8- le} capsule by it y of e (CREON) 00:00: [place] 12,000-38,0 00 the Medical 00 -60,000 morning Branch unit and 1 capsule capsule at noon and 1 capsule in the evening. Take with meals. ARIPiprazol Yes [id number] 5mg Take 1 [facility] e 5 mg 8-29 tablet by ity of tablet 00:00: mouth in [place] 00 the Medical morning. Branch albuterol Yes 2.5mg Inhale 3 Uni vers 2.5 mg /3 8-29 mL every 4 ity of mL (0.083 00:00: (four) [place] %) 00 hours as Medical nebulizer needed for Bran ch solution Wheezing, Shortness of Breath or Bronchospa sm. gabapentin Yes [id number] 800mg Take 1 [facility] 800 mg 8-29 [id number] tablet by ity of tablet 00:00: mouth in [place] 00 the Medical morning Branch and 1 tablet at noon and 1 tablet in the evening. ketoconazol Yes [id number] Apply to [facility] e 2 % 8-29 area(s) ity of shampoo 00:00: [place] daily [place] 00 as needed Medical for Branch Itching. escitalopra Yes [id number] 20mg Take 1 [facility] m oxalate 8-29 tablet by ity o f 20 mg 00:00: mouth in [place] tablet 00 the Medical morning. Branch pantoprazol Yes [id number] 40mg Take 20 mL [facility] e 2 mg/mL 8-29 by mouth ity of oral 00:00: in the [place] suspension 00 morning. Medic al Branch lipase-prot Yes 1{capsu Take 1 U nivers ease-amylas 8-29 le} capsule by it y of e (CREON) 00:00: mouth [place] 12,000-38,0 00 the Medical 60,000 morning Branch unit and 1 capsule capsule at noon and 1 capsule in the evening. Take with meals. ARIPiprazol Yes [id number] 5mg Take 1 [facility] e 5 mg 8-29 tablet by ity of tablet 00:00: mouth in [place] 00 the Medical morning. Branch albuterol Yes 2.5mg Inhale 3 Uni vers 2.5 mg /3 8-29 mL every 4 ity of mL (0.083 00:00: (four) [place] %) 00 hours as Medical nebulizer needed for Bran ch solution Wheezing, Shortness of Breath or Bronchospa sm. ketoconazol Yes [id number] Apply to [facility] e 2 % 8-29 area(s) ity of shampoo 00:00: once daily [place] 00 as needed Medical for Branch Itching. escitalopra Yes [id number] 20mg Take 1 [facility] m oxalate 8-29 tablet by ity o f 20 mg 00:00: mouth in [place] tablet 00 the Medical morning. Branch pantoprazol Yes [id number] 40mg Take 20 mL [facility] e 2 mg/mL 8-29 by mouth ity of oral 00:00: in the [place] suspension 00 morning. Medic al Branch lipase-prot Yes 1{capsu Take 1 U nivers ease-amylas 8-29 le} capsule by it y of e (CREON) 00:00: mouth in [place] 12,000-38,0 00 the Medical 60, morning Branch unit and 1 capsule capsule at noon and 1 capsule in the evening. Take with meals. ARIPiprazol 2021-0 Yes [id number] 5mg Take 1 [facility] e 5 mg 8-29 tablet by ity of tablet 00:00: mouth in [place] 00 the Medical morning. Branch albuterol 2021-0 Yes 2.5mg Inhale 3 Uni vers 2.5 mg /3 8-29 mL every 4 ity of mL (0.083 00:00: (four) [place] %) 00 hours as Medical nebulizer needed for Bran ch solution Wheezing, Shortness of Breath or Bronchospa sm. ketoconazol 2021-0 Yes [id number] Apply to [facility] e 2 % 8-29 area(s) ity of shampoo 00:00: once daily [place] 00 as needed Medical for Branch Itching. escitalopra 2021-0 Yes [id number] 20mg Take 1 [facility] m oxalate 8-29 tablet by ity o f 20 mg 00:00: mouth in [place] tablet 00 the Medical morning. Branch pantoprazol 2021-0 Yes [id number] 40mg Take 20 mL [facility] e 2 mg/mL 8-29 by mouth ity of oral 00:00: in the [place] suspension 00 morning. Medic al Branch lipase-prot 0 Yes 1{capsu Take 1 U nivers ease-amylas 8-29 le} capsule by it y of e (CREON) 00:00: mouth [place] 12,000-38,[place] 00 the Medical 00 -60,000 morning Branch unit and 1 capsule capsule at noon and 1 capsule in the evening. Take with meals. ARIPiprazol 2021-0 Yes [id number] 5mg Take 1 [facility] e 5 mg 8-29 tablet by ity of tablet 00:00: mouth in [place] 00 the Medical morning. Branch albuterol 2021-0 Yes 2.5mg Inhale 3 Uni vers 2.5 mg /3 8-29 mL every 4 ity of mL (0.083 00:00: (four) [place] %) 00 hours as Medical nebulizer needed for Bran ch solution Wheezing, Shortness of Breath or Bronchospa sm. ketoconazol 2021-0 Yes [id number] Apply to [facility] e 2 % 8-29 area(s) ity of shampoo 00:00: once daily [place] 00 as needed Medical for Branch Itching. escitalopra Yes [id number] 20mg Take 1 [facility] m oxalate 8-29 tablet by ity o f 20 mg 00:00: mouth in [place] tablet 00 the Medical morning. Branch pantoprazol Yes [id number] 40mg Take 20 mL [facility] e 2 mg/mL 8-29 by mouth ity of oral 00:00: in the [place] suspension 00 morning. Medic al Branch lipase-prot Yes 1{capsu Take 1 U nivers ease-amylas 8-29 le} capsule by it y of e (CREON) 00:00: mouth [place] -38,0 00 the Medical morning Branch unit and 1 capsule capsule at noon and 1 capsule in the evening. Take with meals. ARIPiprazol Yes [id number] 5mg Take 1 [facility] e 5 mg 8-29 tablet by ity of tablet 00:00: mouth in [place] 00 the Medical morning. Branch albuterol Yes 2.5mg Inhale 3 Uni vers 2.5 mg /3 8-29 mL every 4 ity of mL (0.083 00:00: (four) [place] %) 00 hours as Medical nebulizer needed for Bran ch solution Wheezing, Shortness of Breath or Bronchospa sm. ketoconazol Yes [id number] Apply to [facility] e 2 % 8-29 area(s) ity of shampoo 00:00: once daily [place] 00 as needed Medical for Branch Itching. escitalopra Yes [id number] 20mg Take 1 [facility] m oxalate 8-29 tablet by ity o f 20 mg 00:00: mouth in [place] tablet 00 the Medical morning. Branch pantoprazol Yes [id number] 40mg Take 20 mL [facility] e 2 mg/mL 8-29 by mouth ity of oral 00:00: in the [place] suspension 00 morning. Medic al Branch lipase-prot Yes 1{capsu Take 1 U nivers ease-amylas 8-29 le} capsule by it y of e (CREON) 00:00: mouth [place] -38,0 00 the Medical 60 morning Branch unit and 1 capsule capsule at noon and 1 capsule in the evening. Take with meals. ARIPiprazol 2021-0 Yes [id number] 5mg Take 1 [facility] e 5 mg 8-29 tablet by ity of tablet 00:00: mouth in [place] 00 the Medical morning. Branch albuterol 2021-0 Yes 2.5mg Inhale 3 Uni vers 2.5 mg /3 8-29 mL every 4 ity of mL (0.083 00:00: (four) [place] %) 00 hours as Medical nebulizer needed for Bran ch solution Wheezing, Shortness of Breath or Bronchospa sm. ketoconazol 2021-0 Yes [id number] Apply to [facility] e 2 % 8-29 area(s) ity of shampoo 00:00: once daily [place] 00 as needed Medical for Branch Itching. escitalopra 2021-0 Yes [id number] 20mg Take 1 [facility] m oxalate 8-29 tablet by ity o f 20 mg 00:00: mouth in [facility] 00 the Medical morning. Branch pantoprazol 2021-0 Yes [id number] 40mg Take 20 mL [facility] e 2 mg/mL 8-29 by mouth ity of oral 00:00: in the [place] suspension 00 morning. Medic al Branch lipase-prot 0 Yes 1{capsu Take 1 U nivers ease-amylas 8-29 le} capsule by it y of e (CREON) 00:00: [place] 12,000-38,[place] 00 the Medical 00 -60,000 morning Branch unit and 1 capsule capsule at noon and 1 capsule in the evening. Take with meals. ARIPiprazol 2021-0 Yes [id number] 5mg Take 1 [facility] e 5 mg 8-29 tablet by ity of tablet 00:00: mouth in [place] 00 the Medical morning. Branch albuterol 2021-0 Yes 2.5mg Inhale 3 Uni vers 2.5 mg /3 8-29 mL every 4 ity of mL (0.083 00:00: (four) [place] %) 00 hours as Medical nebulizer needed for Bran ch solution Wheezing, Shortness of Breath or Bronchospa sm. ketoconazol 2021-0 Yes [id number] Apply to [facility] e 2 % 8-29 area(s) ity of shampoo 00:00: once daily [place] 00 as needed Medical for Branch Itching. escitalopra Yes [id number] 20mg Take 1 [facility] m oxalate 8-29 tablet by ity o f 20 mg 00:00: mouth in [place] tablet 00 the Medical morning. Branch pantoprazol Yes [id number] 40mg Take 20 mL [facility] e 2 mg/mL 8-29 by mouth ity of oral 00:00: in the [place] suspension 00 morning. Medic al Branch lipase-prot Yes 1{capsu Take 1 U nivers ease-amylas 8-29 le} capsule by it y of e (CREON) 00:00: mouth [place] -38,[place] 00 the Medical morning Branch unit and 1 capsule capsule at noon and 1 capsule in the evening. Take with meals. ARIPiprazol Yes [id number] 5mg Take 1 [facility] e 5 mg 8-29 tablet by ity of tablet 00:00: mouth in [place] 00 the Medical morning. Branch albuterol Yes 2.5mg Inhale 3 Uni vers 2.5 mg /3 8-29 mL every 4 ity of mL (0.083 00:00: (four) [place] %) 00 hours as Medical nebulizer needed for Bran ch solution Wheezing, Shortness of Breath or Bronchospa sm. ketoconazol Yes [id number] Apply to [facility] e 2 % 8-29 area(s) ity of shampoo 00:00: once daily [place] 00 as needed Medical for Branch Itching. escitalopra Yes [id number] 20mg Take 1 [facility] m oxalate 8-29 tablet by ity o f 20 mg 00:00: mouth in [place] tablet 00 the Medical morning. Branch pantoprazol Yes [id number] 40mg Take 20 mL [facility] e 2 mg/mL 8-29 by mouth ity of oral 00:00: in the [place] suspension 00 morning. Medic al Branch lipase-prot Yes 1{capsu Take 1 U nivers ease-amylas 8-29 le} capsule by it y of e (CREON) 00:00: [place] -,[place] 00 the Medical morning Branch unit and 1 capsule capsule at noon and 1 capsule in the evening. Take with meals. ARIPiprazol 2021-0 Yes [id number] 5mg Take 1 [facility] e 5 mg 8-29 tablet by ity of tablet 00:00: mouth in [place] 00 the Medical morning. Branch albuterol 2021-0 Yes 2.5mg Inhale 3 Uni vers 2.5 mg /3 8-29 mL every 4 ity of mL (0.083 00:00: (four) [place] %) 00 hours as Medical nebulizer needed for Bran ch solution Wheezing, Shortness of Breath or Bronchospa sm. ketoconazol 2021-0 Yes [id number] Apply to [facility] e 2 % 8-29 area(s) ity of shampoo 00:00: once daily [place] 00 as needed Medical for Branch Itching. escitalopra 2021-0 Yes [id number] 20mg Take 1 [facility] m oxalate 8-29 tablet by ity o f 20 mg 00:00: mouth in [facility] 00 the Medical morning. Branch pantoprazol 0 Yes [id number] 40mg Take 20 mL [facility] e 2 mg/mL 8-29 by mouth ity of oral 00:00: in the [facility] 00 morning. Medic al Branch lipase-prot 0 Yes 1{capsu Take 1 U nivers ease-amylas 8-29 le} capsule by it y of e (CREON) 00:00: [place] 12[place]000[place]38,[place] 00 the Medical 00 -60,000 morning Branch unit and 1 capsule capsule at noon and 1 capsule in the evening. Take with meals. ARIPiprazol 2021-0 Yes [id number] 5mg Take 1 [facility] e 5 mg 8-29 tablet by ity of tablet 00:00: mouth in [place] 00 the Medical morning. Branch albuterol 2021-0 Yes 2.5mg Inhale 3 Uni vers 2.5 mg /3 8-29 mL every 4 ity of mL (0.083 00:00: (four) [place] %) 00 hours as Medical nebulizer needed for Bran ch solution Wheezing, Shortness of Breath or Bronchospa sm. ketoconazol 2021-0 Yes [id number] Apply to [facility] 2 % 8-29 area(s) [facility] [place] 00 [place] Medical for Branch Itching. escitalopra Yes [id number] 20mg Take 1 [facility] m oxalate 8-29 tablet by ity o f 20 mg 00:00: mouth in [place] tablet 00 the Medical morning. Branch pantoprazol Yes [id number] 40mg Take 20 mL [facility] e 2 mg/mL 8-29 by mouth ity of oral 00:00: in the [place] suspension 00 morning. Medic al Branch lipase-prot Yes 1{capsu Take 1 U nivers ease-amylas 8-29 le} capsule by it y of e (CREON) 00:00: [place] -38,0 00 the Medical morning Branch unit and 1 capsule capsule at noon and 1 capsule in the evening. Take with meals. ARIPiprazol Yes [id number] 5mg Take 1 [facility] e 5 mg 8-29 tablet by ity of tablet 00:00: mouth in [place] 00 the Medical morning. Branch albuterol Yes 2.5mg Inhale 3 Uni vers 2.5 mg /3 8-29 mL every 4 ity of mL (0.083 00:00: (four) [place] %) 00 hours as Medical nebulizer needed for Bran ch solution Wheezing, Shortness of Breath or Bronchospa sm. ketoconazol Yes [id number] Apply to [facility] 2 % 8-29 area(s) ity of shampoo 00:00: [place] 00 as needed Medical for Branch Itching. escitalopra Yes [id number] 20mg Take 1 [facility] m oxalate 8-29 tablet by ity o f 20 mg 00:00: mouth in [place] tablet 00 the Medical morning. Branch lipase-prot Yes 1{capsu Take 1 U nivers ease-amylas 8-29 le} capsule by it y of e (CREON) 00:00: mouth [place] -,0 00 the Medical -60 morning Branch unit and 1 capsule capsule at noon and 1 capsule in the evening. Take with meals. ARIPiprazol Yes [id number] 5mg Take 1 [facility] e 5 mg 8-29 tablet by ity of tablet 00:00: mouth in [place] 00 the Medical morning. Branch albuterol Yes 2.5mg Inhale 3 Uni vers 2.5 mg /3 8-29 mL every 4 ity of mL (0.083 00:00: (four) [place] %) 00 hours as Medical nebulizer needed for Bran ch solution Wheezing, Shortness of Breath or Bronchospa sm. ketoconazol Yes [id number] Apply to [facility] e 2 % 8-29 area(s) ity of shampoo 00:00: [place] 00 as needed Medical for Branch Itching. escitalopra Yes [id number] 20mg Take 1 [facility] m oxalate 8-29 tablet by ity o f 20 mg 00:00: mouth in [place] tablet 00 the Medical morning. Branch lipase-prot Yes 1{capsu Take 1 U nivers ease-amylas 8-29 le} capsule by it y of e (CREON) 00:00: mouth in [facility] 12,000-38,0 00 the Medical 00 -60,000 morning Branch unit and 1 capsule capsule at noon and 1 capsule in the evening. Take with meals. ARIPiprazol Yes [id number] 5mg Take 1 [facility] e 5 mg 8-29 tablet by ity of tablet 00:00: mouth in [place] 00 the Medical morning. Branch albuterol Yes 2.5mg Inhale 3 Uni vers 2.5 mg /3 8-29 mL every 4 ity of mL (0.083 00:00: (four) [place] %) 00 hours as Medical nebulizer needed for Bran ch solution Wheezing, Shortness of Breath or Bronchospa sm. ketoconazol Yes [id number] Apply to [facility] e 2 % 8-29 area(s) ity of shampoo 00:00: [place] 00 as needed Medical for Branch Itching. escitalopra Yes [id number] 20mg Take 1 [facility] m oxalate 8-29 tablet by ity o f 20 mg 00:00: mouth in [place] tablet 00 the Medical morning. Branch lipase-prot Yes 1{capsu Take 1 U nivers ease-amylas 8-29 le} capsule by it y of e (CREON) 00:00: mouth in [facility] 12,000-38,0 00 the Medical 00 -60,000 morning Branch unit and 1 capsule capsule at noon and 1 capsule in the evening. Take with meals. ARIPiprazol 0 Yes [id number] 5mg Take 1 [facility] e 5 mg 8-29 tablet by ity of tablet 00:00: mouth in [place] 00 the Medical morning. Branch albuterol 0 Yes 2.5mg Inhale 3 Uni vers 2.5 mg /3 8-29 mL every 4 ity of mL (0.083 00:00: (four) [place] %) 00 hours as Medical nebulizer needed for Bran ch solution Wheezing, Shortness of Breath or Bronchospa sm. ketoconazol 0 Yes [id number] Apply to [facility] e 2 % 8-29 area(s) ity of shampoo 00:[place] needed Medical for Branch Itching. escitalopra 0 Yes [id number] 20mg Take 1 [facility] m oxalate 8-29 tablet by ity o f 20 mg 00:00: mouth in [place] tablet 00 the Medical morning. Branch lipase-prot Yes 1{capsu Take 1 U nivers ease-amylas 8-29 le} capsule by it y of e (CREON) 00:00: mouth in [facility] 12,000-38,0 00 the Medical -60,000 morning Branch unit and 1 capsule capsule at noon and 1 capsule in the evening. Take with meals. ARIPiprazol 0 Yes [id number] 5mg Take 1 [facility] e 5 mg 8-29 tablet by ity of tablet 00:00: mouth in [place] 00 the Medical morning. Branch albuterol 0 Yes 2.5mg Inhale 3 Uni vers 2.5 mg /3 8-29 mL every 4 ity of mL (0.083 00:00: (four) [place] %) 00 hours as Medical nebulizer needed for Bran ch solution Wheezing, Shortness of Breath or Bronchospa sm. ketoconazol 0 Yes [id number] Apply to [facility] e 2 % 8-29 area(s) ity of shampoo 00:00: once daily [place] 00 as needed Medical for Branch Itching. escitalopra Yes [id number] 20mg Take 1 [facility] m oxalate 8-29 tablet by ity o f 20 mg 00:00: mouth in [place] tablet 00 the Medical morning. Branch ARIPiprazol Yes [id number] 5mg Take 1 [facility] e 5 mg 8-29 tablet by ity of tablet 00:00: mouth in [place] 00 the Medical morning. Branch albuterol Yes 2.5mg Inhale 3 Uni vers 2.5 mg /3 8-29 mL every 4 ity of mL (0.083 00:00: (four) [place] %) 00 hours as Medical nebulizer needed for Bran ch solution Wheezing, Shortness of Breath or Bronchospa sm. ketoconazol Yes [id number] Apply to [facility] e 2 % 8-29 area(s) ity of shampoo 00:00: once daily [place] 00 as needed Medical for Branch Itching. escitalopra Yes [id number] 20mg Take 1 [facility] m oxalate 8-29 tablet by ity o f 20 mg 00:00: mouth in [place] tablet 00 the Medical morning. Branch ARIPiprazol Yes [id number] 5mg Take 1 [facility] e 5 mg 8-29 tablet by ity of tablet 00:00: mouth in [place] 00 the Medical morning. Branch ketoconazol Yes [id number] Apply to [facility] e 2 % 8-29 area(s) ity of shampoo 00:00: once daily [place] 00 as needed Medical for Branch Itching. escitalopra Yes [id number] 20mg Take 1 [facility] m oxalate 8-29 tablet by ity o f 20 mg 00:00: mouth in [place] tablet 00 the Medical morning. Branch ARIPiprazol Yes [id number] 5mg Take 1 [facility] e 5 mg 8-29 tablet by ity of tablet 00:00: mouth in [place] 00 the Medical morning. Branch ketoconazol Yes [id number] Apply to [facility] e 2 % 8-29 area(s) ity of shampoo 00:00: once daily [place] 00 as needed Medical for Branch Itching. escitalopra Yes [id number] 20mg Take 1 [facility] m oxalate 8-29 tablet by ity o f 20 mg 00:00: mouth in [place] tablet 00 the Medical morning. Branch ARIPiprazol 2021-0 Yes [id number] 5mg Take 1 [facility] e 5 mg 8-29 tablet by ity of tablet 00:00: mouth in [place] 00 the Medical morning. Branch ketoconazol 2021-0 Yes [id number] Apply to [facility] e 2 % 8-29 area(s) ity of shampoo 00:00: once daily [place] 00 as needed Medical for Branch Itching. escitalopra 2021-0 Yes [id number] 20mg Take 1 [facility] m oxalate 8-29 tablet by ity o f 20 mg 00:00: mouth in [place] tablet 00 the Medical morning. Branch ARIPiprazol 2021-0 Yes [id number] 5mg Take 1 [facility] e 5 mg 8-29 tablet by ity of tablet 00:00: mouth in [place] 00 the Medical morning. Branch ketoconazol 2021-0 Yes [id number] Apply to [facility] e 2 % 8-29 area(s) ity of shampoo 00:00: once daily [place] 00 as needed Medical for Branch Itching. ARIPiprazol 2021-0 Yes [id number] 5mg Take 1 [facility] e 5 mg 8-29 tablet by ity of tablet 00:00: mouth in [place] 00 the Medical morning. Branch ketoconazol 2021-0 Yes [id number] Apply to [facility] e 2 % 8-29 area(s) ity of shampoo 00:00: once daily [place] 00 as needed Medical for Branch Itching. ARIPiprazol 2021-0 Yes [id number] 5mg Take 1 [facility] e 5 mg 8-29 tablet by ity of tablet 00:00: mouth in [place] 00 the Medical morning. Branch ketoconazol 2021-0 Yes [id number] Apply to [facility] e 2 % 8-29 area(s) ity of shampoo 00:00: once daily [place] 00 as needed Medical for Branch Itching. ARIPiprazol 2021-0 Yes [id number] 5mg Take 1 [facility] e 5 mg 8-29 tablet by ity of tablet 00:00: mouth in [place] 00 the Medical morning. Branch ketoconazol 2021-0 Yes [id number] Apply to [facility] e 2 % 8-29 area(s) ity of shampoo 00:00: once daily [place] 00 as needed Medical for Branch Itching. ARIPiprazol 2021-0 Yes [id number] 5mg Take 1 [facility] e 5 mg 8-29 tablet by ity of tablet 00:00: mouth in [place] 00 the Medical morning. Branch ketoconazol 2021-0 Yes [id number] Apply to [facility] e 2 % 8-29 area(s) ity of shampoo 00:00: once daily [place] 00 as needed Medical for Branch Itching. ARIPiprazol 2021-0 Yes [id number] 5mg Take 1 [facility] e 5 mg 8-29 tablet by ity of tablet 00:00: mouth in [place] 00 the Medical morning. Branch ketoconazol 2021-0 Yes [id number] Apply to [facility] e 2 % 8-29 area(s) ity of shampoo 00:00: once daily [place] 00 as needed Medical for Branch Itching. ARIPiprazol 2021-0 Yes [id number] 5mg Take 1 [facility] e 5 mg 8-29 tablet by ity of tablet 00:00: mouth in [place] 00 the Medical morning. Branch ketoconazol 2021-0 Yes [id number] Apply to [facility] e 2 % 8-29 area(s) ity of shampoo 00:00: once daily [place] 00 as needed Medical for Branch Itching. ARIPiprazol 2021-0 Yes [id number] 5mg Take 1 [facility] e 5 mg 8-29 tablet by ity of tablet 00:00: mouth in [place] 00 the Medical morning. Branch ketoconazol 2021-0 Yes [id number] Apply to [facility] e 2 % 8-29 area(s) ity of shampoo 00:00: once daily [place] 00 as needed Medical for Branch Itching. ARIPiprazol 2021-0 Yes [id number] 5mg Take 1 [facility] e 5 mg 8-29 tablet by ity of tablet 00:00: mouth in [place] 00 the Medical morning. Branch ketoconazol 2021-0 Yes [id number] Apply to [facility] e 2 % 8-29 area(s) ity of shampoo 00:00: once daily [place] 00 as needed Medical for Branch Itching. ARIPiprazol 2022-0 Yes [id number] 5mg Take 1 [facility] e 5 mg 8-29 tablet by ity of tablet 00:00: mouth in [place] 00 the Medical morning. Branch ketoconazol Yes [id number] Apply to [facility] e 2 % 8-29 area(s) ity of shampoo 00:00: once daily [place] 00 as needed Medical for Branch Itching. ARIPiprazol 0 Yes [id number] 5mg Take 1 [facility] e 5 mg 8-29 tablet by ity of tablet 00:00: mouth in [place] 00 the Medical morning. Branch ketoconazol Yes [id number] Apply to [facility] e 2 % 8-29 area(s) ity of shampoo 00:00: once daily [place] 00 as needed Medical for Branch Itching. ketoconazol Yes [id number] Apply to [facility] e 2 % 8-29 area(s) ity of shampoo 00:00: once daily [place] 00 as needed Medical for Branch Itching. ketoconazol Yes [id number] Apply to [facility] e 2 % 8-29 area(s) ity of shampoo 00:00: once daily [place] 00 as needed Medical for Branch Itching. ketoconazol 0 Yes [id number] Apply to [facility] e 2 % 8-29 area(s) ity of shampoo 00:00: once daily [place] 00 as needed Medical for Branch Itching. ketoconazol 2022- No [id number] Apply to [facility] e 2 % 8-29 09- area(s) ity of shampoo 00:00: 00:00 once daily [place] 00 :00 as needed Medical for Branch Itching. ARIPiprazol 2021-0 3- No [id number] 5mg Take 1 [facility] e 5 mg 8-29 08-17 tablet by ity of tablet 00:00: 00:00 mouth in [place] 00 :00 the Medical morning. Branch ARIPiprazol 2021-0 3- No [id number] 5mg Take 1 [facility] e 5 mg 8-29 08-17 tablet by ity of tablet 00:00: 00:00 mouth in [place] 00 :00 the Medical morning. Branch escitalopra 2021-0 2022- No [id number] 20mg Take 1 [facility] m oxalate 11-27 tablet by ity of 20 mg 00:00: 00:00 mouth in [place] tablet 00 :00 the Medical morning. Branch albuterol 2022- No 2.5mg Inhale 3 Un m[place]ie 2.5 mg /3 11-27-13 mL every 4 ity of mL (0.083 00:00: 00:00 (four) [place] %) 00 :00 hours as Medical nebulizer needed for Bran ch solution Wheezing, Shortness of Breath or Bronchospa sm. albuterol 2022- No 2.5mg Inhale 3 Un m[place]ie 2.5 mg /3 11-27-13 mL every 4 ity of mL (0.083 00:00: 00:00 (four) [place] %) 00 :00 hours as Medical nebulizer needed for Bran ch solution Wheezing, Shortness of Breath or Bronchospa sm. lipase-prot 2022- No 1{capsu Take 1 [facility] ease-amylas 11-27 le} capsule by i ty of e (CREON) 00:00: 00:00 mouth in [place] 12,000-38,0 00 :00 the Medical 00 -60,000 morning Branch unit and 1 capsule capsule at noon and 1 capsule in the evening. Take with meals. pantoprazol 2022- No [id number] 40mg Take 20 mL [facility] e 2 mg/mL 11-27 by mouth ity o f oral 00:00: 00:00 in the [place] suspension 00 :00 morning. Medic al Branch pantoprazol 2022- No [id number] 40mg Take 20 mL [facility] e 2 mg/mL 11-2730 by mouth ity o f oral 00:00: 00:00 in the [place] suspension 00 :00 morning. Medic al Branch gabapentin 2022- No [id number] 800mg Take 1 [facility] 800 mg 11-27 [id number] tablet by ity o f tablet 00:00: 00:00 mouth in [place] 00 :00 the Medical morning Branch and 1 tablet at noon and 1 tablet in the evening. escitalopra 2021- No [id number] 20mg Take 1 [facility] m oxalate 08-14 tablet by ity of 20 mg 00:00: 00:00 mouth [place] tablet 00 :00 daily. Medical Branch levothyroxi 2021-0 Yes [id number] 1 tablet [facility] ne 137 mcg 5-13 PO every ity o f tablet 00:00: other day [place] 00 Medical Branch levothyroxi 2021-0 Yes [id number] 1 tablet [facility] ne 137 mcg 5-13 PO every ity o f tablet 00:00: other day [place] 00 Medical Branch levothyroxi 2021-0 2021- No [id number] 1 tablet [facility] ne 137 mcg 5-13 10-11 PO every ity of tablet 00:00: 00:00 other day [place] 00 :00 Medical Branch gabapentin 2021-0 2021- No [id number] 800mg Take 1 [facility] 800 mg 08-09 [id number] tablet by ity o f tablet 00:00: 00:00 mouth 2 [place] 00 :00 (two) Medical times Branch daily. ferrous 2021-0 Yes 300mg Take 300 Unive rs sulfate 300 4-12 mg by ity of mg (60 mg 13:49: mouth 2 [place] iron)/5 mL 44 (two) Medical solution times Branch daily. atorvastati 2021-0 Yes 80mg Take 80 mg Univers n 80 mg 4-12 by mouth ity of tablet 13:49: at [place] [address] bedtime. Medical Branch ferrous 2021-0 Yes 300mg Take 300 Unive rs sulfate 300 4-12 mg by ity of mg (60 mg 13:49: mouth 2 [place] iron)/5 mL 44 (two) Medical solution times Branch daily. atorvastati 2021-0 Yes 80mg Take 80 mg Univers n 80 mg 4-12 by mouth ity of tablet 13:49: at [place] [address] bedtime. Medical Branch ferrous 2021-0 Yes 300mg Take 300 Unive rs sulfate 300 4-12 mg by ity of mg (60 mg 13:49: mouth 2 [place] iron)/5 mL 44 (two) Medical solution times Branch daily. atorvastati 2-0 Yes 80mg Take 80 mg Univers n 80 mg 4-12 by mouth ity of tablet 13:49: at [place] [address] bedtime. Medical Branch ferrous 2-0 Yes 300mg Take 300 Unive rs sulfate 300 4-12 mg by ity of mg (60 mg 13:49: mouth 2 [place] iron)/5 mL 44 (two) Medical solution times Branch daily. atorvastati 2-0 Yes 80mg Take 80 mg Univers n 80 mg 4-12 by mouth ity of tablet 13:49: at [place] [address] bedtime. Medical Branch ferrous 2021-0 Yes 300mg Take 300 Unive rs sulfate 300 4-12 mg by ity of mg (60 mg 13:49: mouth 2 [place] iron)/5 mL 44 (two) Medical solution times Branch daily. atorvastati 2022-0 Yes 80mg Take 80 mg Univers n 80 mg 4-12 by mouth ity of tablet 13:49: at [place] [address] bedtime. Medical Branch ferrous 2021-0 Yes 300mg Take 300 Unive rs sulfate 300 4-12 mg by ity of mg (60 mg 13:49: mouth 2 [place] iron)/5 mL 44 (two) Medical solution times Branch daily. atorvastati 2-0 Yes 80mg Take 80 mg [facility] n 80 mg 4-12 by mouth ity of tablet 13:49: at [place] [address] bedtime. Medical Branch ferrous 2-0 Yes 300mg Take 300 Unive rs sulfate 300 4-12 mg by ity of mg (60 mg 13:49: mouth 2 [place] iron)/5 mL 44 (two) Medical solution times Branch daily. atorvastati 2-0 Yes 80mg Take 80 mg Univers n 80 mg 4-12 by mouth ity of tablet 13:49: at [place] [address] bedtime. Medical Branch ferrous 2021-0 Yes 300mg Take 300 Unive rs sulfate 300 4-12 mg by ity of mg (60 mg 13:49: mouth 2 [place] iron)/5 mL 44 (two) Medical solution times Branch daily. atorvastati 2-0 Yes 80mg Take 80 mg Univers n 80 mg 4-12 by mouth ity of tablet 13:49: at [place] [address] bedtime. Medical Branch ferrous 2-0 Yes 300mg Take 300 Unive rs sulfate 300 4-12 mg by ity of mg (60 mg 13:49: mouth 2 [place] iron)/5 mL 44 (two) Medical solution times Branch daily. atorvastati 2022-0 Yes 80mg Take 80 mg Univers n 80 mg 4-12 by mouth ity of tablet 13:49: at [place] [address] bedtime. Medical Branch ferrous 2022-0 Yes 300mg Take 300 Unive rs sulfate 300 4-12 mg by ity of mg (60 mg 13:49: mouth 2 [place] iron)/5 mL 44 (two) Medical solution times Branch daily. atorvastati 2022-0 Yes 80mg Take 80 mg [facility] n 80 mg 4-12 by mouth ity of tablet 13:49: at [place] [address] bedtime. Medical Branch ferrous 2022-0 Yes 300mg Take 300 Unive rs sulfate 300 4-12 mg by ity of mg (60 mg 13:49: mouth 2 [place] iron)/5 mL 44 (two) Medical solution times Branch daily. atorvastati 2022-0 Yes 80mg Take 80 mg [facility] n 80 mg 4-12 by mouth ity of tablet 13:49: at [place] [address] bedtime. Medical Branch ferrous 2022-0 Yes 300mg Take 300 Unive rs sulfate 300 4-12 mg by ity of mg (60 mg 13:49: mouth 2 [place] iron)/5 mL 44 (two) Medical solution times Branch daily. atorvastati 2022-0 Yes 80mg Take 80 mg [facility] n 80 mg 4-12 by mouth ity of tablet 13:49: at [place] [address] bedtime. Medical Branch ferrous 2022-0 Yes 300mg Take 300 Unive rs sulfate 300 4-12 mg by ity of mg (60 mg 13:49: mouth 2 [place] iron)/5 mL 44 (two) Medical solution times Branch daily. atorvastati 2022-0 Yes 80mg Take 80 mg [facility] n 80 mg 4-12 by mouth ity of tablet 13:49: at [place] [address] bedtime. Medical Branch ferrous 2022-0 Yes 300mg Take 300 Unive rs sulfate 300 4-12 mg by ity of mg (60 mg 13:49: mouth 2 [place] iron)/5 mL 44 (two) Medical solution times Branch daily. atorvastati 2022-0 Yes 80mg Take 80 mg [facility] n 80 mg 4-12 by mouth ity of tablet 13:49: at [place] [address] bedtime. Medical Branch ferrous 2022-0 Yes 300mg Take 300 Unive rs sulfate 300 4-12 mg by ity of mg (60 mg 13:49: mouth 2 [place] iron)/5 mL 44 (two) Medical solution times Branch daily. atorvastati 2022-0 Yes 80mg Take 80 mg [facility] n 80 mg 4-12 by mouth ity of tablet 13:49: at [place] [address] bedtime. Medical Branch ferrous 2022-0 Yes 300mg Take 300 Unive rs sulfate 300 4-12 mg by ity of mg (60 mg 13:49: mouth 2 [place] iron)/5 mL 44 (two) Medical solution times Branch daily. atorvastati 2022-0 Yes 80mg Take 80 mg [facility] n 80 mg 4-12 by mouth ity of tablet 13:49: at [place] [address] bedtime. Medical Branch ferrous 2022-0 Yes 300mg Take 300 Unive rs sulfate 300 4-12 mg by ity of mg (60 mg 13:49: mouth 2 [place] iron)/5 mL 44 (two) Medical solution times Branch daily. atorvastati 2022-0 Yes 80mg Take 80 mg [facility] n 80 mg 4-12 by mouth ity of tablet 13:49: at [place] [address] bedtime. Medical Branch ferrous 2022-0 Yes 300mg Take 300 Unive rs sulfate 300 4-12 mg by ity of mg (60 mg 13:49: mouth 2 [place] iron)/5 mL 44 (two) Medical solution times Branch daily. atorvastati 2-0 Yes 80mg Take 80 mg [facility] n 80 mg 4-12 by mouth ity of tablet 13:49: at [place] [address] bedtime. Medical Branch ferrous 2-0 Yes 300mg Take 300 Unive rs sulfate 300 4-12 mg by ity of mg (60 mg 13:49: mouth 2 [place] iron)/5 mL 44 (two) Medical solution times Branch daily. atorvastati 2022-0 Yes 80mg Take 80 mg [facility] n 80 mg 4-12 by mouth ity of tablet 13:49: at [place] [address] bedtime. Medical Branch ferrous 2022-0 Yes 300mg Take 300 Unive rs sulfate 300 4-12 mg by ity of mg (60 mg 13:49: mouth 2 [place] iron)/5 mL 44 (two) Medical solution times Branch daily. atorvastati 2022-0 Yes 80mg Take 80 mg [facility] n 80 mg 4-12 by mouth ity of tablet 13:49: at [place] [address] bedtime. Medical Branch ferrous 2022-0 Yes 300mg Take 300 Unive rs sulfate 300 4-12 mg by ity of mg (60 mg 13:49: mouth 2 [place] iron)/5 mL 44 (two) Medical solution times Branch daily. atorvastati 0 Yes 80mg Take 80 mg [facility] n 80 mg 4-12 by mouth ity of tablet 13:49: at [place] [address] bedtime. Medical Branch atorvastati 0 Yes 80mg Take 80 mg [facility] n 80 mg 4-12 by mouth ity of tablet 13:49: at [place] [address] bedtime. Medical Branch atorvastati 0 Yes 80mg Take 80 mg [facility] n 80 mg 4-12 by mouth ity of tablet 13:49: at [place] [address] bedtime. Medical Branch atorvastati 0 Yes 80mg Take 80 mg [facility] n 80 mg 4-12 by mouth ity of tablet 13:49: at [place] [address] bedtime. Medical Branch atorvastati 0 Yes 80mg Take 80 mg [facility] n 80 mg 4-12 by mouth ity of tablet 13:49: at [place] [address] bedtime. Medical Branch atorvastati 0 Yes 80mg Take 80 mg [facility] n 80 mg 4-12 by mouth ity of tablet 13:49: at [place] [address] bedtime. Medical Branch atorvastati 0 Yes 80mg Take 80 mg [facility] n 80 mg 4-12 by mouth ity of tablet 13:49: at [place] [address] bedtime. Medical Branch atorvastati 0 Yes 80mg Take 80 mg [facility] n 80 mg 4-12 by mouth ity of tablet 13:49: at [place] [address] bedtime. Medical Branch atorvastati 0 Yes 80mg Take 80 mg [facility] n 80 mg 4-12 by mouth ity of tablet 13:49: at [place] [address] bedtime. Medical Branch atorvastati 0 Yes 80mg Take 80 mg [facility] n 80 mg 4-12 by mouth ity of tablet 13:49: at [place] [address] bedtime. Medical Branch atorvastati 2021-0 Yes 80mg Take 80 mg [facility] n 80 mg 4-12 by mouth ity of tablet 13:49: at [place] [address] bedtime. Medical Branch gabapentin 2021-0 202- No [id number] 600mg Take 1 [facility] 600 mg 4-12 11-27 [id number] tablet by ity o f tablet 00:00: 00:00 mouth 3 [place] 00 :00 (three) Medical times Branch daily. pantoprazol 2021- No [id number] 40mg Take 20 mL Univers e 2 mg/mL 06-13 by mouth ity o f oral 00:00: 00:00 daily. [place] suspension 00 :00 Medical Branch oxyCODONE 2020-04 Yes [id number] 10mg Take 1 Univer s CR 10 mg 12 1-03 tablet by ity of hr tablet 00:00: mouth [place] 00 every 12 Medical (twelve) Branch hours as needed for Pain. PRN Indication s: acute pain oxyCODONE 2020-04 Yes [id number] 10mg Take 1 Univer s CR 10 mg 12 1-03 tablet by ity of hr tablet 00:00: mouth [place] 00 every 12 Medical (twelve) Branch hours as needed for Pain. PRN Indication s: acute pain oxyCODONE 2020-04 Yes [id number] 10mg Take 1 Univer s CR 10 mg 12 1-03 tablet by ity of hr tablet 00:00: mouth [place] 00 every 12 Medical (twelve) Branch hours as needed for Pain. PRN Indication s: acute pain oxyCODONE 2020-04 Yes [id number] 10mg Take 1 Univer s CR 10 mg 12 1-03 tablet by ity of hr tablet 00:00: mouth [place] 00 every 12 Medical (twelve) Branch hours as needed for Pain. PRN Indication s: acute pain oxyCODONE 2020-04 Yes [id number] 10mg Take 1 Univer s CR 10 mg 12 1-03 tablet by ity of hr tablet 00:00: mouth [place] 00 every 12 Medical (twelve) Branch hours as needed for Pain. PRN Indication s: acute pain oxyCODONE 2020-04 Yes [id number] 10mg Take 1 Univer s CR 10 mg 12 1-03 tablet by ity of hr tablet 00:00: mouth [place] 00 every 12 Medical (twelve) Branch hours as needed for Pain. PRN Indication s: acute pain oxyCODONE 2020-04 Yes [id number] 10mg Take 1 Univer s CR 10 mg 12 1-03 tablet by ity of hr tablet 00:00: mouth [place] 00 every 12 Medical (twelve) Branch hours as needed for Pain. PRN Indication s: acute pain oxyCODONE 2020-04 Yes [id number] 10mg Take 1 Univer s CR 10 mg 12 1-03 tablet by ity of hr tablet 00:00: mouth [place] 00 every 12 Medical (twelve) Branch hours as needed for Pain. PRN Indication s: acute pain oxyCODONE 2020-04 Yes [id number] 10mg Take 1 Univer s CR 10 mg 12 1-03 tablet by ity of hr tablet 00:00: mouth [place] 00 every 12 Medical (twelve) Branch hours as needed for Pain. PRN Indication s: acute pain oxyCODONE 2020-04 Yes [id number] 10mg Take 1 Univer s CR 10 mg 12 1-03 tablet by ity of hr tablet 00:00: mouth [place] 00 every 12 Medical (twelve) Branch hours as needed for Pain. PRN Indication s: acute pain oxyCODONE 2020-04 Yes [id number] 10mg Take 1 Univer s CR 10 mg 12 1-03 tablet by ity of hr tablet 00:00: mouth [place] 00 every 12 Medical (twelve) Branch hours as needed for Pain. PRN Indication s: acute pain oxyCODONE 2020-04 Yes [id number] 10mg Take 1 Univer s CR 10 mg 12 1-03 tablet by ity of hr tablet 00:00: mouth [place] 00 every 12 Medical (twelve) Branch hours as needed for Pain. PRN Indication s: acute pain oxyCODONE 2020-04 Yes [id number] 10mg Take 1 Univer s CR 10 mg 12 1-03 tablet by ity of hr tablet 00:00: mouth [place] 00 every 12 Medical (twelve) Branch hours as needed for Pain. PRN Indication s: acute pain oxyCODONE 2020-04 Yes [id number] 10mg Take 1 Univer s CR 10 mg 12 1-03 tablet by ity of hr tablet 00:00: mouth [place] 00 every 12 Medical (twelve) Branch hours as needed for Pain. PRN Indication s: acute pain oxyCODONE 2020-04 Yes [id number] 10mg Take 1 Univer s CR 10 mg 12 1-03 tablet by ity of hr tablet 00:00: mouth [place] 00 every 12 Medical (twelve) Branch hours as needed for Pain. PRN Indication s: acute pain oxyCODONE 2020-04 Yes [id number] 10mg Take 1 [facility] 10 mg 12 1-03 tablet by ity of hr tablet 00:00: mouth [place] 00 every 12 Medical (twelve) Branch hours as needed for Pain. PRN Indication s: acute pain oxyCODONE 2020-04 Yes [id number] 10mg Take 1 [facility] CR 10 mg 12 1-03 tablet by ity of hr tablet 00:00: mouth [place] 00 every 12 Medical (twelve) Branch hours as needed for Pain. PRN Indication s: acute pain oxyCODONE 2020-04 Yes [id number] 10mg Take 1 [facility] CR 10 mg 12 1-03 tablet by ity of hr tablet 00:00: mouth [place] 00 every 12 Medical (twelve) Branch hours as needed for Pain. PRN Indication s: acute pain oxyCODONE 2020-04 Yes [id number] 10mg Take 1 [facility] CR 10 mg 12 -03 tablet by ity of hr tablet 00:00: mouth [place] 00 every 12 Medical (twelve) Branch hours as needed for Pain. PRN Indication s: acute pain oxyCODONE 2020-04 Yes [id number] 10mg Take 1 [facility] CR 10 mg 12 -03 tablet by ity of hr tablet 00:00: mouth [place] 00 every 12 Medical (twelve) Branch hours as needed for Pain. PRN Indication s: acute pain oxyCODONE 2020-04 Yes [id number] 10mg Take 1 [facility] CR 10 mg 12 -03 tablet by ity of hr tablet 00:00: mouth [place] 00 every 12 Medical (twelve) Branch hours as needed for Pain. PRN Indication s: acute pain oxyCODONE 2020-04- No [id number] 10mg Take 1 Un[facility] rs CR 10 mg 12 04-03 06-30 tablet by it y of hr tablet 00:00: 00:00 mouth [place] 00 :00 every 12 Medical (twelve) Branch hours as needed for Pain. PRN Indication s: acute pain oxyCODONE 2020-04- No [id number] 10mg Take 1 Un[facility] rs CR 10 mg 12 04-03 06-30 tablet by it y of hr tablet 00:00: 00:00 mouth [place] 00 :00 every 12 Medical (twelve) Branch hours as needed for Pain. PRN Indication s: acute pain lipase-prot 2020-04- No [id number] 1{capsu Take 1 [facility] ease-amylas 04-03 08-29 le} capsule by i ty of e (CREON) 00:00[place] 12[place] :00 (three) Medic al 00 -60,000 times Branch unit daily with capsule meals. ARIPiprazol 2020-04- No [id number] 5mg Take 1 Univers e 5 mg 0-10 08-29 tablet by ity of tablet 00:00: 00:00 mouth [place] 00 :00 daily. Medical Branch dicyclomine 2020-04 Yes [id number] 20mg Take 1 [facility] 20 mg 0-09 tablet by ity of tablet 00:00: mouth as [place] 00 needed for Medical Abdominal Branch pain. dicyclomine 2020-04 Yes [id number] 20mg Take 1 [facility] 20 mg 0-09 tablet by ity of tablet 00:00: mouth as [place] 00 needed for Medical Abdominal Branch pain. dicyclomine 2020-04 Yes [id number] 20mg Take 1 [facility] 20 mg 0-09 tablet by ity of tablet 00:00: mouth as [place] 00 needed for Medical Abdominal Branch pain. dicyclomine 2020-04 Yes [id number] 20mg Take 1 [facility] 20 mg 0-09 tablet by ity of tablet 00:00: mouth as [place] 00 needed for Medical Abdominal Branch pain. dicyclomine 2020-04 Yes [id number] 20mg Take 1 [facility] 20 mg 0-09 tablet by ity of tablet 00:00: mouth as [place] 00 needed for Medical Abdominal Branch pain. dicyclomine 2020-04 Yes [id number] 20mg Take 1 [facility] 20 mg 0-09 tablet by ity of tablet 00:00: mouth as [place] 00 needed for Medical Abdominal Branch pain. dicyclomine 2020-04 Yes [id number] 20mg Take 1 [facility] 20 mg 0-09 tablet by ity of tablet 00:00: mouth as [place] 00 needed for Medical Abdominal Branch pain. dicyclomine 2020-04 Yes [id number] 20mg Take 1 [facility] 20 mg 0-09 tablet by ity of tablet 00:00: mouth as [place] 00 needed for Medical Abdominal Branch pain. dicyclomine 2020-04 Yes [id number] 20mg Take 1 [facility] 20 mg 0-09 tablet by ity of tablet 00:00: mouth as [place] 00 needed for Medical Abdominal Branch pain. dicyclomine 2020-04 Yes [id number] 20mg Take 1 [facility] 20 mg 0-09 tablet by ity of tablet 00:00: mouth as [place] 00 needed for Medical Abdominal Branch pain. dicyclomine 2020-04 Yes [id number] 20mg Take 1 [facility] 20 mg 0-09 tablet by ity of tablet 00:00: mouth as [place] 00 needed for Medical Abdominal Branch pain. dicyclomine 2020-04 Yes [id number] 20mg Take 1 [facility] 20 mg 0-09 tablet by ity of tablet 00:00: mouth as [place] 00 needed for Medical Abdominal Branch pain. dicyclomine 2020-04 Yes [id number] 20mg Take 1 [facility] 20 mg 0-09 tablet by ity of tablet 00:00: mouth as [place] 00 needed for Medical Abdominal Branch pain. dicyclomine 2020-04 Yes [id number] 20mg Take 1 [facility] 20 mg 0-09 tablet by ity of tablet 00:00: mouth as [place] 00 needed for Medical Abdominal Branch pain. dicyclomine 2020-04 Yes [id number] 20mg Take 1 [facility] 20 mg 0-09 tablet by ity of tablet 00:00: mouth as [place] 00 needed for Medical Abdominal Branch pain. dicyclomine 2020-04 Yes [id number] 20mg Take 1 [facility] 20 mg 0-09 tablet by ity of tablet 00:00: mouth as [place] 00 needed for Medical Abdominal Branch pain. dicyclomine 2020-04 Yes [id number] 20mg Take 1 [facility] 20 mg 0-09 tablet by ity of tablet 00:00: mouth as [place] 00 needed for Medical Abdominal Branch pain. dicyclomine 2020-04 Yes [id number] 20mg Take 1 [facility] 20 mg 0-09 tablet by ity of tablet 00:00: mouth as [place] 00 needed for Medical Abdominal Branch pain. dicyclomine 2020-04 Yes [id number] 20mg Take 1 [facility] 20 mg 0-09 tablet by ity of tablet 00:00: mouth as [place] 00 needed for Medical Abdominal Branch pain. dicyclomine 2020-04 Yes [id number] 20mg Take 1 [facility] 20 mg 0-09 tablet by ity of tablet 00:00: mouth as [place] 00 needed for Medical Abdominal Branch pain. dicyclomine 2020-04 Yes [id number] 20mg Take 1 [facility] 20 mg 0-09 tablet by ity of tablet 00:00: mouth as [place] 00 needed for Medical Abdominal Branch pain. dicyclomine 2020-04- No [id number] 20mg Take 1 [facility] 20 mg 0-09 06-30 tablet by ity of tablet 00:00: 00:00 mouth as [place] 00 :00 needed for Medical Abdominal Branch pain. dicyclomine 2020-04- No [id number] 20mg Take 1 [facility] 20 mg 0-09 06-30 tablet by ity of tablet 00:00: 00:00 mouth as [place] 00 :00 needed for Medical Abdominal Branch pain. escitalopra Yes 10mg QD Take [address] [facility] oxalate 5-17 by mouth [facility] (LEXAPRO) 11:04: daily. Medica l 10 MG 17 Center tablet HYDROcodone Yes 1{tbl} Take [address] -acetaminop 3-23 tablet by Myra lynn sotomayor (NORCO 00:00: mouth Medica l 7.5-325) 00 every 6 Center 7.5-325 mg (six) per tablet hours as needed for Pain. Max Daily Amount: 4 tablets BuPROPion BuPROPion Yes Chandrakant 1 tablet Common HCl ER HCl ER 9-17 [facility] (Sm[facility] (Smoking 00:00: morning - [facility] Det) 00 [facility] Hydrocodone Hydrocodone Yes Chandrakant 1 tablet Common -Acetaminop -Acetaminop [facility] as needed [facility] Xanax Xanax Yes Chandrakant 1 tablet Common [facility] Zofran Zofran Yes Chandrakant 1 tablet Commo n [facility] Immunizations Ordered Filled Immunization Date Status Comments [facility] e Immunization Name Name Influenza Virus 2022-10-08 Completed Universit y of Vaccine - Whole 00:00:00 [facility] [place] [facility] Influenza Virus 2022-10-08 Completed Universit y of Vaccine - Whole 00:00:00 [facility] [place] [facility] Influenza Virus 2022-10-08 Completed Universit y of Vaccine - Whole 00:00:00 [facility] [place] [facility] Influenza Virus 2022-10-08 Completed Universit y of Vaccine - Whole 00:00:00 [facility] [place] [facility] Influenza Virus 2022-10-08 Completed Universit y of Vaccine - Whole 00:00:00 [facility] [place] [facility] Influenza Virus 2022-10-08 Completed Universit y of Vaccine - Whole 00:00:00 [facility] [place] [facility] Influenza Virus 2022-10-08 Completed Universit y of Vaccine - Whole 00:00:00 [facility] [place] [facility] Influenza Virus 2022-10-08 Completed Universit y of Vaccine - Whole 00:00:00 [facility] [place] [facility] Influenza Virus 2022-10-08 Completed Universit y of Vaccine - Whole 00:00:00 [facility] [place] [facility] Influenza Virus 2022-10-08 Completed Universit y of Vaccine - Whole 00:00:00 [facility] [place] [facility] Influenza Virus 2022-10-08 Completed Universit y of Vaccine - Whole 00:00:00 [facility] [place] [facility] Influenza Virus 2022-10-08 Completed Universit y of Vaccine - Whole 00:00:00 [facility] [place] [facility] Influenza Virus 2022-10-08 Completed Universit y of Vaccine - Whole 00:00:00 [facility] [place] [facility] Influenza Virus 2022-10-08 Completed Universit y of Vaccine - Whole 00:00:00 [facility] [place] [facility] Influenza Virus 2022-10-08 Completed Universit y of Vaccine - Whole 00:00:00 [facility] [place] [facility] Influenza Virus 2022-10-08 Completed Universit y of Vaccine - Whole 00:00:00 [facility] [place] [facility] Influenza Virus 2022-10-08 Completed Universit y of Vaccine - Whole 00:00:00 [facility] [place] [facility] Influenza Virus 2022-10-08 Completed Universit y of Vaccine - Whole 00:00:00 [facility] [place] [facility] Influenza Virus 2022-10-08 Completed Universit y of Vaccine - Whole 00:00:00 [facility] [place] [facility] Pneumococcal 20 2022-08-28 Completed Universit y of Conjugate, PCV20 00:00:00 [facility] dical (Prevnar 20) Branch SARS-COV-2 COVID-19 2022-08-28 Completed Unive rsity of ANTONI-SUCROSE 00:00:00 [place] Medica l VACCINE 12 YRS+, Branch BIVALENT 0.3ML, IM, (PFIZER ARROYO TOP) Pneumococcal 20 2022-08-28 Completed Universit y of Conjugate, PCV20 00:00:00 [place] Me dical (Prevnar 20) Branch SARS-COV-2 COVID-19 2022-08-28 Completed Unive rsity of ANTONI-SUCROSE 00:00:00 [place] Medica l VACCINE 12 YRS+, Branch BIVALENT 0.3ML, IM, (PFIZER ARROYO TOP) Pneumococcal 20 2022-08-28 Completed Universit y of Conjugate, PCV20 00:00:00 [place] Me dical (Prevnar 20) Branch SARS-COV-2 COVID-19 2022-08-28 Completed Unive rsity of ANTONI-SUCROSE 00:00:00 [place] [facility]ica [facility] VACCINE 12 YRS+, Branch BIVALENT 0.3ML, IM, (PFIZER ARROYO TOP) Pneumococcal 20 2022-08-28 Completed Universit y of Conjugate, PCV20 00:00:00 [place] Me dical (Prevnar 20) Branch SARS-COV-2 COVID-19 2022-08-28 Completed Unive rsity of ANTONI-SUCROSE 00:00:00 [place] Medica l VACCINE 12 YRS+, Branch BIVALENT 0.3ML, IM, (PFIZER ARROYO TOP) Pneumococcal 20 2022-08-28 Completed Universit y of Conjugate, PCV20 00:00:00 [place] Me dical (Prevnar 20) Branch SARS-COV-2 COVID-19 2022-08-28 Completed Unive rsity of ANTONI-SUCROSE 00:00:00 [place] [facility]ica [facility] VACCINE 12 YRS+, Branch BIVALENT 0.3ML, IM, (PFIZER ARROYO TOP) Pneumococcal 20 2022-08-28 Completed Universit y of Conjugate, PCV20 00:00:00 [place] Me dical (Prevnar 20) Branch SARS-COV-2 COVID-19 2022-08-28 Completed Unive rsity of ANTONI-SUCROSE 00:00:00 [place] [facility]ica [facility] VACCINE 12 YRS+, Branch BIVALENT 0.3ML, IM, (PFIZER ARROYO TOP) Pneumococcal 20 2022-08-28 Completed Universit y of Conjugate, PCV20 00:00:00 [place] [facility] dical (Prevnar 20) Branch SARS-COV-2 COVID-19 2022-08-28 Completed Unive rsity of ANTONI-SUCROSE 00:00:00 [place] [facility]ica [facility] VACCINE 12 YRS+, Branch BIVALENT 0.3ML, IM, (PFIZER ARROYO TOP) Pneumococcal 20 2022-08-28 Completed Universit y of Conjugate, PCV20 00:00:00 [place] [facility] dical (Prevnar 20) Branch SARS-COV-2 COVID-19 2022-08-28 Completed Unive rsity of ANTONI-SUCROSE 00:00:00 [place] [facility]ica [facility] VACCINE 12 YRS+, Branch BIVALENT 0.3ML, IM, (PFIZER ARROYO TOP) Pneumococcal 20 2022-08-28 Completed Universit y of Conjugate, PCV20 00:00:00 [place] [facility] dical (Prevnar 20) Branch SARS-COV-2 COVID-19 2022-08-28 Completed Unive rsity of ANTONI-SUCROSE 00:00:00 [place] [facility]ica l VACCINE 12 YRS+, Branch BIVALENT 0.3ML, IM, (PFIZER ARROYO TOP) Pneumococcal 20 2022-08-28 Completed Universit y of Conjugate, PCV20 00:00:00 [place] Me dical (Prevnar 20) Branch SARS-COV-2 COVID-19 2022-08-28 Completed Unive rsity of ANTONI-SUCROSE 00:00:00 [place] Medica l VACCINE 12 YRS+, Branch BIVALENT 0.3ML, IM, (PFIZER ARROYO TOP) Pneumococcal 20 2022-08-28 Completed Universit y of Conjugate, PCV20 00:00:00 [place] [facility] dical (Prevnar 20) Branch SARS-COV-2 COVID-19 2022-08-28 Completed Unive rsity of ANTONI-SUCROSE 00:00:00 [place] [facility]ica l VACCINE 12 YRS+, Branch BIVALENT 0.3ML, IM, (PFIZER ARROYO TOP) Pneumococcal 20 2022-08-28 Completed Universit y of Conjugate, PCV20 00:00:00 [place] [facility] dical (Prevnar 20) Branch SARS-COV-2 COVID-19 2022-08-28 Completed Unive rsity of ANTONI-SUCROSE 00:00:00 [place] [facility]ica l VACCINE 12 YRS+, Branch BIVALENT 0.3ML, IM, (PFIZER ARROYO TOP) Pneumococcal 20 2022-08-28 Completed Universit y of Conjugate, PCV20 00:00:00 [place] [facility] dical (Prevnar 20) Branch SARS-COV-2 COVID-19 2022-08-28 Completed Unive rsity of ANTONI-SUCROSE 00:00:00 [place] Medica l VACCINE 12 YRS+, Branch BIVALENT 0.3ML, IM, (PFIZER ARROYO TOP) Pneumococcal 20 2022-08-28 Completed Universit y of Conjugate, PCV20 00:00:00 [place] [facility] dical (Prevnar 20) Branch SARS-COV-2 COVID-19 2022-08-28 Completed Unive rsity of ANTONI-SUCROSE 00:00:00 [place] [facility]ica l VACCINE 12 YRS+, Branch BIVALENT 0.3ML, IM, (PFIZER ARROYO TOP) Pneumococcal 20 2022-08-28 Completed Universit y of Conjugate, PCV20 00:00:00 [place] [facility] dical (Prevnar 20) Branch SARS-COV-2 COVID-19 2022-08-28 Completed Unive rsity of ANTONI-SUCROSE 00:00:00 [place] [facility]ica [facility] VACCINE 12 YRS+, Branch BIVALENT 0.3ML, IM, (PFIZER ARROYO TOP) Pneumococcal 20 2022-08-28 Completed Universit y of Conjugate, PCV20 00:00:00 [place] [facility] dical (Prevnar 20) Branch SARS-COV-2 COVID-19 2022-08-28 Completed Unive rsity of ANTONI-SUCROSE 00:00:00 [place] [facility]ica [facility] VACCINE 12 YRS+, Branch BIVALENT 0.3ML, IM, (PFIZER ARROYO TOP) Pneumococcal 20 2022-08-28 Completed Universit y of Conjugate, PCV20 00:00:00 [place] [facility] dical (Prevnar 20) Branch SARS-COV-2 COVID-19 2022-08-28 Completed Unive rsity of ANTONI-SUCROSE 00:00:00 [place] [facility]ica [facility] VACCINE 12 YRS+, Branch BIVALENT 0.3ML, IM, (PFIZER ARROYO TOP) Pneumococcal 20 2022-08-28 Completed Universit y of Conjugate, PCV20 00:00:00 [place] [facility] dical (Prevnar 20) Branch SARS-COV-2 COVID-19 2022-08-28 Completed Unive rsity of ANTONI-SUCROSE 00:00:00 [place] [facility] VACCINE 12 YRS+, Branch BIVALENT 0.3ML, IM, (PFIZER ARROYO TOP) Pneumococcal 20 2022-08-28 Completed Universit y of Conjugate, PCV20 00:00:00 [place] [facility] dical (Prevnar 20) Branch SARS-COV-2 COVID-19 2022-08-28 Completed Unive rsity of ANTONI-SUCROSE 00:00:00 [place] [facility]ica [facility] VACCINE 12 YRS+, Branch BIVALENT 0.3ML, IM, (PFIZER ARROYO TOP) Pneumococcal 20 2022-08-28 Completed Universit y of Conjugate, PCV20 00:00:00 [place] [facility]ical (Prevnar 20) Branch SARS-COV-2 COVID-19 2022-08-28 Completed Unive rsity of ANTONI-SUCROSE 00:00:00 [place] [facility] VACCINE 12 YRS+, Branch BIVALENT 0.3ML, IM, (PFIZER ARROYO TOP) Pneumococcal 20 2022-08-28 Completed Universit y of Conjugate, PCV20 00:00:00 [place] [facility]ical (Prevnar 20) Branch SARS-COV-2 COVID-19 2022-08-28 Completed Unive rsity of ANTONI-SUCROSE 00:00:00 [place] [facility] VACCINE 12 YRS+, Branch BIVALENT 0.3ML, IM, (PFIZER ARROYO TOP) Pneumococcal 20 2022-08-28 Completed Universit y of Conjugate, PCV20 00:00:00 [place] [facility] (Prevnar 20) Branch SARS-COV-2 COVID-19 2022-08-28 Completed Unive rsity of ANTONI-SUCROSE 00:00:00 [place] [facility] VACCINE 12 YRS+, Branch BIVALENT 0.3ML, IM, (PFIZER ARROYO TOP) Pneumococcal 20 2022-08-28 Completed Universit y of Conjugate, PCV20 00:00:00 [place] [facility] (Prevnar 20) Branch SARS-COV-2 COVID-19 2022-08-28 Completed Unive rsity of ANTONI-SUCROSE 00:00:00 [place] [facility] VACCINE 12 YRS+, Branch BIVALENT 0.3ML, IM, (PFIZER ARROYO TOP) Pneumococcal 20 2022-08-28 Completed Universit y of Conjugate, PCV20 00:00:00 [place] [facility] (Prevnar 20) Branch SARS-COV-2 COVID-19 2022-08-28 Completed Unive rsity of ANTONI-SUCROSE 00:00:00 [place] [facility] VACCINE 12 YRS+, Branch BIVALENT 0.3ML, IM, (PFIZER ARROYO TOP) Pneumococcal 20 2022-08-28 Completed Universit y of Conjugate, PCV20 00:00:00 [place] [facility]ical (Prevnar 20) Branch SARS-COV-2 COVID-19 2022-08-28 Completed Unive rsity of ANTONI-SUCROSE 00:00:00 [place] [facility] VACCINE 12 YRS+, Branch BIVALENT 0.3ML, IM, (PFIZER ARROYO TOP) Pneumococcal 20 2022-08-28 Completed Universit y of Conjugate, PCV20 00:00:00 [place] [facility]ical (Prevnar 20) Branch SARS-COV-2 COVID-19 2022-08-28 Completed Unive rsity of ANTONI-SUCROSE 00:00:00 [place] [facility]ica [facility] VACCINE 12 YRS+, Branch BIVALENT 0.3ML, IM, (PFIZER ARROYO TOP) Pneumococcal 20 2022-08-28 Completed Universit y of Conjugate, PCV20 00:00:00 [place] [facility]ical (Prevnar 20) Branch SARS-COV-2 COVID-19 2022-08-28 Completed Unive rsity of ANTONI-SUCROSE 00:00:00 [place] [facility] VACCINE 12 YRS+, Branch BIVALENT 0.3ML, IM, (PFIZER ARROYO TOP) Pneumococcal 20 2022-08-28 Completed Universit y of Conjugate, PCV20 00:00:00 [place] [facility]ical (Prevnar 20) Branch SARS-COV-2 COVID-19 2022-08-28 Completed Unive rsity of ANTONI-SUCROSE 00:00:00 [place] [facility] VACCINE 12 YRS+, Branch BIVALENT 0.3ML, IM, (PFIZER ARROYO TOP) Pneumococcal 20 2022-08-28 Completed Universit y of Conjugate, PCV20 00:00:00 [place] [facility] (Prevnar 20) Branch SARS-COV-2 COVID-19 2022-08-28 Completed Unive rsity of ANTONI-SUCROSE 00:00:00 [place] [facility] VACCINE 12 YRS+, Branch BIVALENT 0.3ML, IM, (PFIZER ARROYO TOP) Pneumococcal 20 2022-08-28 Completed Universit y of Conjugate, PCV20 00:00:00 [place] [facility] (Prevnar 20) Branch SARS-COV-2 COVID-19 2022-08-28 Completed Unive rsity of ANTONI-SUCROSE 00:00:00 [place] [facility] VACCINE 12 YRS+, Branch BIVALENT 0.3ML, IM, (PFIZER ARROYO TOP) Pneumococcal 20 2022-08-28 Completed Universit y of Conjugate, PCV20 00:00:00 [place] [facility] (Prevnar 20) Branch SARS-COV-2 COVID-19 2022-08-28 Completed Unive rsity of ANTONI-SUCROSE 00:00:00 [place] [facility] VACCINE 12 YRS+, Branch BIVALENT 0.3ML, IM, (PFIZER ARROYO TOP) Pneumococcal 20 2022-08-28 Completed Universit y of Conjugate, PCV20 00:00:00 [place] [facility] (Prevnar 20) Branch SARS-COV-2 COVID-19 2022-08-28 Completed Unive rsity of ANTONI-SUCROSE 00:00:00 [place] [facility] VACCINE 12 YRS+, Branch BIVALENT 0.3ML, IM, (PFIZER ARROYO TOP) Pneumococcal 20 2022-08-28 Completed Universit y of Conjugate, PCV20 00:00:00 [place] [facility] (Prevnar 20) Branch SARS-COV-2 COVID-19 2022-08-28 Completed Unive rsity of ANTONI-SUCROSE 00:00:00 [place] [facility] VACCINE 12 YRS+, Branch BIVALENT 0.3ML, IM, (PFIZER ARROYO TOP) Pneumococcal 20 2022-08-28 Completed Universit y of Conjugate, PCV20 00:00:00 [place] [facility] (Prevnar 20) Branch SARS-COV-2 COVID-19 2022-08-28 Completed Unive rsity of ANTONI-SUCROSE 00:00:00 [place] [facility] VACCINE 12 YRS+, Branch BIVALENT 0.3ML, IM, (PFIZER ARROYO TOP) Pneumococcal 20 2022-08-28 Completed Universit y of Conjugate, PCV20 00:00:00 [place] [facility]ical (Prevnar 20) Branch SARS-COV-2 COVID-19 2022-08-28 Completed Unive rsity of ANTONI-SUCROSE 00:00:00 [place] [facility] VACCINE 12 YRS+, Branch BIVALENT 0.3ML, IM, (PFIZER ARROYO TOP) Pneumococcal 20 2022-08-28 Completed Universit y of Conjugate, PCV20 00:00:00 [place] [facility] (Prevnar 20) Branch SARS-COV-2 COVID-19 2022-08-28 Completed Unive rsity of ANTONI-SUCROSE 00:00:00 [place] [facility] VACCINE 12 YRS+, Branch BIVALENT 0.3ML, IM, (PFIZER ARROYO TOP) Pneumococcal 20 2022-08-28 Completed Universit y of Conjugate, PCV20 00:00:00 [place] [facility] (Prevnar 20) Branch SARS-COV-2 COVID-19 2022-08-28 Completed Unive rsity of ANTONI-SUCROSE 00:00:00 [place] [facility] VACCINE 12 YRS+, Branch BIVALENT 0.3ML, IM, (PFIZER ARROYO TOP) SARS-COV-2 COVID-19 2020-09-20 Completed Unive rsity of ADI/J&J VACCINE 00:00:00 [facility] SARS-COV-2 COVID-19 2020-09-20 Completed Unive rsity of ADI/J&J VACCINE 00:00:00 [facility] SARS-COV-2 COVID-19 2020-09-20 Completed Unive rsity of ADI/J&J VACCINE 00:00:00 [facility] SARS-COV-2 COVID-19 2020-09-20 Completed Unive rsity of ADI/J&J VACCINE 00:00:00 [facility] SARS-COV-2 COVID-19 2020-09-20 Completed Unive rsity of ADI/J&J VACCINE 00:00:00 [facility] SARS-COV-2 COVID-19 2020-09-20 Completed Unive rsity of ADI/J&J VACCINE 00:00:00 [facility] SARS-COV-2 COVID-19 2020-09-20 Completed Unive rsity of ADI/J&J VACCINE 00:00:00 [facility] SARS-COV-2 COVID-19 2020-09-20 Completed Unive rsity of ADI/J&J VACCINE 00:00:00 [facility] SARS-COV-2 COVID-19 2020-09-20 Completed Unive rsity of ADI/J&J VACCINE 00:00:00 [facility] SARS-COV-2 COVID-19 2020-09-20 Completed Unive rsity of ADI/J&J VACCINE 00:00:00 [facility] SARS-COV-2 COVID-19 2020-09-20 Completed Unive rsity of ADI/J&J VACCINE 00:00:00 [facility] SARS-COV-2 COVID-19 2020-09-20 Completed Unive rsity of ADI/J&J VACCINE 00:00:00 [facility] SARS-COV-2 COVID-19 2020-09-20 Completed Unive rsity of ADI/J&J VACCINE 00:00:00 [facility] SARS-COV-2 COVID-19 2020-09-20 Completed Unive rsity of ADI/J&J VACCINE 00:00:00 [facility] SARS-COV-2 COVID-19 2020-09-20 Completed Unive rsity of ADI/J&J VACCINE 00:00:00 [facility] SARS-COV-2 COVID-19 2020-09-20 Completed Unive rsity of ADI/J&J VACCINE 00:00:00 [facility] SARS-COV-2 COVID-19 2020-09-20 Completed Unive rsity of ADI/J&J VACCINE 00:00:00 [facility] SARS-COV-2 COVID-19 2020-09-20 Completed Unive rsity of ADI/J&J VACCINE 00:00:00 [facility] SARS-COV-2 COVID-19 2020-09-20 Completed Unive rsity of ADI/J&J VACCINE 00:00:00 [facility] SARS-COV-2 COVID-19 2020-09-20 Completed Unive rsity of ADI/J&J VACCINE 00:00:00 [facility] SARS-COV-2 COVID-19 2020-09-20 Completed Unive rsity of ADI/J&J VACCINE 00:00:00 [facility] SARS-COV-2 COVID-19 2020-09-20 Completed Unive rsity of ADI/J&J VACCINE 00:00:00 [facility] SARS-COV-2 COVID-19 2020-09-20 Completed Unive rsity of ADI/J&J VACCINE 00:00:00 [facility] SARS-COV-2 COVID-19 2020-09-20 Completed Unive rsity of ADI/J&J VACCINE 00:00:00 [facility] SARS-COV-2 COVID-19 2020-09-20 Completed Unive rsity of ADI/J&J VACCINE 00:00:00 [facility] SARS-COV-2 COVID-19 2020-09-20 Completed Unive rsity of ADI/J&J VACCINE 00:00:00 [facility] SARS-COV-2 COVID-19 2020-09-20 Completed Unive rsity of ADI/J&J VACCINE 00:00:00 [facility] SARS-COV-2 COVID-19 2020-09-20 Completed Unive rsity of ADI/J&J VACCINE 00:00:00 [facility] SARS-COV-2 COVID-19 2020-09-20 Completed Unive rsity of ADI/J&J VACCINE 00:00:00 [facility] SARS-COV-2 COVID-19 2020-09-20 Completed Unive rsity of ADI/J&J VACCINE 00:00:00 [facility] SARS-COV-2 COVID-19 2020-09-20 Completed Unive rsity of ADI/J&J VACCINE 00:00:00 [facility] SARS-COV-2 COVID-19 2020-09-20 Completed Unive rsity of ADI/J&J VACCINE 00:00:00 [facility] SARS-COV-2 COVID-19 2020-09-20 Completed Unive rsity of ADI/J&J VACCINE 00:00:00 [facility] SARS-COV-2 COVID-19 2020-09-20 Completed Unive rsity of ADI/J&J VACCINE 00:00:00 [facility] SARS-COV-2 COVID-19 2020-09-20 Completed Unive rsity of ADI/J&J VACCINE 00:00:00 [facility] SARS-COV-2 COVID-19 2020-09-20 Completed Unive rsity of ADI/J&J VACCINE 00:00:00 [facility] SARS-COV-2 COVID-19 2020-09-20 Completed Unive rsity of ADI/J&J VACCINE 00:00:00 [facility] SARS-COV-2 COVID-19 2020-09-20 Completed [facility]/J&J VACCINE 00:00:00 [facility] SARS-COV-2 COVID-19 2020-09-20 Completed [facility]/J&J VACCINE 00:00:00 [facility] SARS-COV-2 COVID-19 2020-09-20 Completed [facility]/J&J VACCINE 00:00:00 [facility] SARS-COV-2 COVID-19 2020-09-20 Completed [facility]/J&J VACCINE 00:00:00 [facility] SARS-COV-2 COVID-19 2020-09-20 Completed [facility]/J&J VACCINE 00:00:00 [facility] SARS-COV-2 COVID-19 2020-09-20 Completed [facility]/J&J VACCINE 00:00:00 [facility] SARS-COV-2 COVID-19 2020-09-20 Completed [facility]/J&J VACCINE 00:00:00 [facility] SARS-COV-2 COVID-19 2020-09-20 Completed [facility]/J&J VACCINE 00:00:00 [facility] SARS-COV-2 COVID-19 2020-09-20 Completed [facility]/J&J VACCINE 00:00:00 [facility] SARS-COV-2 COVID-19 2020-09-20 Completed [facility]/J&J VACCINE 00:00:00 [facility] SARS-COV-2 COVID-19 2020-09-20 Completed Unive rsity of ADI/J&J VACCINE 00:00:00 [facility] SARS-COV-2 COVID-19 2020-09-20 Completed Unive rsity of ADI/J&J VACCINE 00:00:00 [facility] SARS-COV-2 COVID-19 2020-09-20 Completed Unive rsity of ADI/J&J VACCINE 00:00:00 [facility] Influenza Virus 2020-01-11 Completed Universit y of [facility]ine [place] .5 mL 00:00:00 [facility] Influenza Virus 2020-01-11 Completed Universit y of [facility] [place] .5 mL 00:00:00 [facility] 6[facility] Influenza Virus 2020-01-11 Completed Universit y of [facility] [place] .5 mL 00:00:00 [facility] 6+ MO Branch Influenza Virus [...] y of [facility] [place] .5 mL 00:00:00 [facility]+ [facility] (FLUZONE/FLULAVAL/F LUARIX) Influenza Virus 2020-01-11 Completed Universit y of [facility] [place] .5 mL 00:00:00 [facility] 6+ [facility] (FLUZONE/FLULAVAL/F LUARIX) Influenza Virus 2020-01-11 Completed Universit y of [facility] [place] .5 mL 00:00:00 [facility] 6+ [facility] Branch (FLUZONE/FLULAVAL/F LUARIX) Influenza Virus 2020-01-11 Completed Universit y of [facility] [place] .5 mL 00:00:00 [facility] 6+ [facility] (FLUZONE/FLULAVAL/F LUARIX) Influenza Virus 2020-01-11 Completed Universit y of [facility] [place] .5 mL 00:00:00 [facility] IM 6+ MO Branch (FLUZONE/FLULAVAL/F LUARIX) Influenza Virus 2020-01-11 Completed Universit y of Vaccine Quad .5 mL 00:00:00 [facility] 6+ MO Branch (FLUZONE/FLULAVAL/F LUARIX) TDAP (ADACEL) 2019-04-28 Completed University of VACCINE 00:00:00 [facility] TDAP (ADACEL) 2019-04-28 Completed University of VACCINE 00:00:00 [facility] TDAP (ADACEL) 2019-04-28 Completed University of VACCINE 00:00:00 [facility] TDAP (ADACEL) 2019-04-28 Completed University of VACCINE 00:00:00 [facility] TDAP (ADACEL) 2019-04-28 Completed University of VACCINE 00:00:00 [facility] TDAP (ADACEL) 2019-04-28 Completed University of VACCINE 00:00:00 [facility] TDAP (ADACEL) 2019-04-28 Completed University of VACCINE 00:00:00 [facility] TDAP (ADACEL) 2019-04-28 Completed University of VACCINE 00:00:00 [facility] TDAP (ADACEL) 2019-04-28 Completed University of VACCINE 00:00:00 [facility] TDAP (ADACEL) 2019-04-28 Completed University of VACCINE 00:00:00 [facility] TDAP (ADACEL) 2019-04-28 Completed University of VACCINE 00:00:00 [facility] TDAP (ADACEL) 2019-04-28 Completed University of VACCINE 00:00:00 [facility] TDAP (ADACEL) 2019-04-28 Completed University of VACCINE 00:00:00 [facility] TDAP (ADACEL) 2019-04-28 Completed University of VACCINE 00:00:00 [facility] TDAP (ADACEL) 2019-04-28 Completed University of VACCINE 00:00:00 [facility] TDAP (ADACEL) 2019-04-28 Completed University of VACCINE 00:00:00 [facility] TDAP (ADACEL) 2019-04-28 Completed University of VACCINE 00:00:00 [facility] Branch TDAP (ADACEL) 2019-04-28 Completed University of VACCINE 00:00:00 [facility] Branch TDAP (ADACEL) 2019-04-28 Completed University of VACCINE 00:00:00 [facility] Branch TDAP (ADACEL) 2019-04-28 Completed University of VACCINE 00:00:00 [facility] Branch TDAP (ADACEL) 2019-04-28 Completed University of VACCINE 00:00:00 [facility] Branch TDAP (ADACEL) 2019-04-28 Completed University of VACCINE 00:00:00 [facility] Branch TDAP (ADACEL) 2019-04-28 Completed University of VACCINE 00:00:00 [facility] TDAP (ADACEL) 2019-04-28 Completed University of VACCINE 00:00:00 [facility] Branch TDAP (ADACEL) 2019-04-28 Completed University of VACCINE 00:00:00 [facility] Branch TDAP (ADACEL) 2019-04-28 Completed University of VACCINE 00:00:00 [facility] TDAP (ADACEL) 2019-04-28 Completed University of VACCINE 00:00:00 [facility] TDAP (ADACEL) 2019-04-28 Completed University of VACCINE 00:00:00 [facility] TDAP (ADACEL) 2019-04-28 Completed University of VACCINE 00:00:00 [facility] TDAP (ADACEL) 2019-04-28 Completed University of VACCINE 00:00:00 [facility] TDAP (ADACEL) 2019-04-28 Completed University of VACCINE 00:00:00 [facility] TDAP (ADACEL) 2019-04-28 Completed University of VACCINE 00:00:00 [facility] Branch TDAP (ADACEL) 2019-04-28 Completed University of VACCINE 00:00:00 [facility] TDAP (ADACEL) 2019-04-28 Completed University of VACCINE 00:00:00 [facility] Branch TDAP (ADACEL) 2019-04-28 Completed University of VACCINE 00:00:00 [facility] TDAP (ADACEL) 2019-04-28 Completed University of VACCINE 00:00:00 [facility] Branch TDAP (ADACEL) 2019-04-28 Completed University of VACCINE 00:00:00 [facility] Branch TDAP (ADACEL) 2019-04-28 Completed University of VACCINE 00:00:00 [facility] TDAP (ADACEL) 2019-04-28 Completed University of VACCINE 00:00:00 [facility] TDAP (ADACEL) 2019-04-28 Completed University of VACCINE 00:00:00 [facility] TDAP (ADACEL) 2019-04-28 Completed University of VACCINE 00:00:00 [facility] TDAP (ADACEL) 2019-04-28 Completed University of VACCINE 00:00:00 [facility] TDAP (ADACEL) 2019-04-28 Completed University of VACCINE 00:00:00 [facility] TDAP (ADACEL) 2019-04-28 Completed University of VACCINE 00:00:00 [facility] TDAP (ADACEL) 2019-04-28 Completed University of VACCINE 00:00:00 [facility] TDAP (ADACEL) 2019-04-28 Completed University of VACCINE 00:00:00 [facility] TDAP (ADACEL) 2019-04-28 Completed University of VACCINE 00:00:00 [facility] TDAP (ADACEL) 2019-04-28 Completed University of VACCINE 00:00:00 [facility] TDAP (ADACEL) 2019-04-28 Completed University of VACCINE 00:00:00 [facility] TDAP (ADACEL) 2019-04-28 Completed University of VACCINE 00:00:00 [facility] Vital Signs Vital Name Observation Time Observation Value Comments Source Respiratory rate 2022-11-30 12:40:00 18 /min Univ ersity of [facility] Oxygen saturation in 2022-11-30 12:40:00 96 /min [facility] Arterial blood by [facility] Pulse oximetry Branch Systolic blood 2022-11-30 12:39:00 114 mm[Hg] [facility] sity of pressure [facility] Diastolic blood 2022-11-30 12:39:00 65 mm[Hg] Unive rsity of pressure [facility] Heart rate 2022-11-30 12:39:00 52 /min Universi ty of [facility] Body temperature 2022-11-30 12:39:00 36.22 Leda Univ ersity of [facility] Body weight 2022-11-30 07:51:00 81.965 kg Universi ty of [facility] BMI 2022-11-30 07:51:00 25.20 kg/m2 Universi ty of [facility] Body height 2022-11-28 23:32:00 180.3 cm Universi ty of [facility] Systolic blood 2022-11-22 17:54:00 136 mm[Hg] Univer sity of pressure [facility] Diastolic blood 2022-11-22 17:54:00 85 mm[Hg] Unive rsity of pressure [facility] Heart rate 2022-11-22 17:54:00 90 /min Universi ty of [facility] Body temperature 2022-11-22 17:54:00 37.39 Leda Univ ersity of [facility] Respiratory rate 2022-11-22 17:54:00 18 /min Univ ersity of [facility] Body height 2022-11-22 17:54:00 180.3 cm Universi ty of [facility] Body weight 2022-11-22 17:54:00 79.379 kg Universi ty of [facility] BMI 2022-11-22 17:54:00 24.41 kg/m2 Universi ty of [facility] Oxygen saturation in 2022-11-22 17:54:00 98 /min University Arterial blood by [facility] Pulse oximetry Branch Systolic blood 2022-11-15 15:27:00 131 mm[Hg] Univer sity of pressure [facility] Diastolic blood 2022-11-15 15:27:00 79 mm[Hg] Unive rsity of pressure [facility] Heart rate 2022-11-15 15:27:00 76 /min Universi ty of [facility] Body temperature 2022-11-15 15:27:00 36.28 Leda Univ ersity of [facility] Body height 2022-11-15 15:27:00 152.4 cm [facility] Body weight 2022-11-15 15:27:00 82.192 kg [facility] BMI 2022-11-15 15:27:00 35.39 kg/m2 Universi ty of [facility] Oxygen saturation in 2022-11-15 15:27:00 98 /min University of Arterial blood by [facility] Pulse oximetry Branch Systolic blood 2022-11-14 17:50:00 126 mm[Hg] Univer sity of pressure [facility] Diastolic blood 2022-11-14 17:50:00 79 mm[Hg] Unive rsity of pressure [facility] Heart rate 2022-11-14 17:50:00 67 /min Universi ty of [facility] Body temperature 2022-11-14 17:50:00 36.89 Leda Univ [facility] Respiratory rate 2022-11-14 17:50:00 20 /min Univ ersity of [facility] Oxygen saturation in 2022-11-14 17:50:00 96 /min University of Arterial blood by [facility] Pulse oximetry Branch Body weight 2022-11-14 09:00:00 81.602 kg [facility] BMI 2022-11-14 09:00:00 35.13 kg/m2 [facility] Body height 2022-11-13 08:01:00 152.4 cm [facility]i ty [facility] Systolic blood 2022-11-06 17:40:00 144 mm[Hg] Univer sity of pressure [facility] Diastolic blood 2022-11-06 17:40:00 86 mm[Hg] Unive rsity of pressure [facility] Heart rate 2022-11-06 17:40:00 67 /min [facility] Body temperature 2022-11-06 17:40:00 36.78 Leda Univ [facility] Respiratory rate 2022-11-06 17:40:00 14 /min Univ ers[facility] Oxygen saturation in 2022-11-06 17:40:00 98 /min University of Arterial blood by [place] [employer] julieta Pulse oximetry Branch Body weight 2022-11-05 11:20:00 81.466 kg [facility] ty [facility] BMI 2022-11-05 11:20:00 35.08 kg/m2 [facility] Body height 2022-11-05 00:29:00 152.4 cm [facility] Systolic blood 2022-10-11 18:27:00 124 mm[Hg] Univer sity of pressure [facility] Diastolic blood 2022-10-11 18:27:00 77 mm[Hg] Unive rsity of pressure [facility] Heart rate 2022-10-11 18:27:00 98 /min [facility]i ty [facility] Body height 2022-10-11 18:27:00 180.3 cm [facility] Body weight 2022-10-11 18:27:00 80.423 kg [facility] BMI 2022-10-11 18:27:00 24.73 kg/m2 [facility] Oxygen saturation in 2022-10-11 18:27:00 94 /min University of Arterial blood by [place] [facility] Pulse oximetry Branch Systolic blood 2022-09-28 19:25:00 115 mm[Hg] Univer sity of pressure [facility] Diastolic blood 2022-09-28 19:25:00 75 mm[Hg] Unive rsity of pressure [facility] Heart rate 2022-09-28 19:25:00 84 /min [facility] Body height 2022-09-28 19:25:00 180.3 cm [facility] Body weight 2022-09-28 19:25:00 83.144 kg [facility] BMI 2022-09-28 19:25:00 25.57 kg/m2 [facility] Oxygen saturation in 2022-09-28 19:25:00 97 /min University of Arterial blood by [place] [facility] Pulse oximetry Branch Systolic blood 2022-08-28 20:41:00 129 mm[Hg] Univer sity of pressure [facility] Diastolic blood 2022-08-28 20:41:00 75 mm[Hg] Unive rsity of pressure [facility] Heart rate 2022-08-28 20:41:00 84 /min [facility] ty [facility] Body temperature 2022-08-28 20:41:00 37.11 Leda Univ [facility] Body height 2022-08-28 20:41:00 180.3 cm [facility] Body weight 2022-08-28 20:41:00 84.959 kg [facility] [place] [facility] [place] BMI 2022-08-28 20:41:00 26.12 kg/m2 [facility] Oxygen saturation in 2022-08-28 20:41:00 97 /min University of Arterial blood by [facility] Pulse oximetry Branch Systolic blood 2022-02-02 16:52:00 129 mm[Hg] Univer sity of pressure [facility] [place] Diastolic blood 2022-02-02 16:52:00 80 mm[Hg] Unive rsity of pressure [facility] [place] Heart rate 2022-02-02 16:51:00 78 /min [facility] ty [facility] [place] Body weight 2022-02-02 16:51:00 83.915 kg [facility] [place] BMI 2022-02-02 16:51:00 25.80 kg/m2 [facility] [place] Oxygen saturation in 2022-02-02 16:51:00 98 /min University of Arterial blood by [facility] Pulse oximetry Branch Systolic blood 2021-11-27 16:08:00 128 mm[Hg] Univer sity of pressure [facility] Diastolic blood 2021-11-27 16:08:00 80 mm[Hg] Unive rsity of pressure [facility] [place] Heart rate 2021-11-27 16:08:00 103 /min [facility] Body temperature 2021-11-27 16:08:00 37.17 Leda [facility] [place] [facility] [place] Body height 2021-11-27 16:08:00 180.3 cm [facility] Body weight 2021-11-27 16:08:00 78.019 kg [facility] BMI 2021-11-27 16:08:00 23.99 kg/m2 Universi ty of [facility] Oxygen saturation in 2021-11-27 16:08:00 100 /min University of Arterial blood by [facility] Pulse oximetry Branch Procedures Procedure Date / Time Performing Clinician Source Performed MAGNESIUM 2022-11-29 12:13:00 Sara Vilchis [facility] COMP. METABOLIC PANEL 2022-11-29 12:13:00 Sara Vilchis [facility] ([id number]) Medical Branch LIPASE 2022-11-29 09:09:00 Sara Vilchis [facility] CBC WITH DIFF 2022-11-29 09:09:00 Sara Vilchis [facility] PROTHROMBIN TIME / INR 2022-11-29 09:09:00 Sara Vilchis [facility] ACTIVATED PARTIAL 2022-11-29 09:09:00 Sara Vilchis [facility] THRMPLAS [facility] LIPASE 2022-11-28 21:20:00 [facility] COMP. METABOLIC PANEL 2022-11-28 21:20:00 Tez Ramírez [facility] ([id number]) [facility] CBC WITH DIFF 2022-11-28 21:20:00 Desiree [facility] CONSENT/REFUSAL FOR 2022-11-28 20:55:04 Doctor Unassigned, No Un [facility] DIAGNOSIS AND TREATMENT [facility] Medical Branch LIPASE 2022-11-22 19:26:00 [facility] COMP. METABOLIC PANEL 2022-11-22 19:26:00 [facility] ([id number]) [facility] CBC WITH DIFF 2022-11-22 19:26:00 [facility] URINALYSIS 2022-11-22 19:20:00 [facility] ASSIGNMENT OF BENEFITS 2022-11-22 18:54:27 Doctor Unassigned, No [facility] CONSENT/REFUSAL FOR 2022-11-22 17:42:28 Doctor Unassigned, No [facility] DIAGNOSIS AND TREATMENT [facility] BASIC METABOLIC PANEL 2022-11-14 10:21:00 Hailey Cardenas [facility] (NA, K, CL, CO2, GLUCOSE, Medica l Branch BUN, CREATININE, CA) US ABDOMEN COMPLETE 2022-11-13 09:37:37 Joe Treadwell [facility] CT ABDOMEN PELVIS WO 2022-11-13 03:29:30 Regis Obando [facility] Medical Branch LIPASE 2022-11-13 01:34:00 [facility] FUN[facility]EL 2022-11-13 01:34:00 Regis Obando [facility] ([id number]) (ALB,T.PRO,BILI Medical Branch T,BU/BC,ALT,AST,ALK PHOS) BASIC METABOLIC PANEL 2022-11-13 01:34:00 Regis Obando [facility] (NA, K, CL, CO2, GLUCOSE, Medica l Branch BUN, CREATININE, CA) CBC WITH DIFF 2022-11-13 01:34:00 [facility] ASSIGNMENT OF BENEFITS 2022-11-13 01:18:15 Doctor Unassigned, No [facility] Medical [place] NOTICE OF PRIVACY 2022-11-12 23:36:23 Doctor Unassigned, No [facility] PRACTICES Name Medical Branch CONSENT/REFUSAL FOR 2022-11-12 23:36:07 Doctor Unassigned, No [facility] DIAGNOSIS AND TREATMENT [facility] Medical [place] LIPASE 2022-11-06 10:42:00 Lupis Soria [facility] Medical Branch MAGNESIUM 2022-11-06 10:42:00 Medina [facility] BASIC METABOLIC PANEL 2022-11-06 10:42:00 Lupis Soria [facility] (NA, K, CL, CO2, GLUCOSE, Medica l Branch BUN, CREATININE, CA) CBC WITH DIFF 2022-11-06 10:42:00 [facility] LIPID PANEL ([id number])(TOTAL 2022-11-05 11:25:00 Deric Santos [facility] CHOLESTEROL, Medical Branch TRIGLYCERIDES, HDL) CT ABDOMEN PELVIS WO 2022-11-04 18:25:16 Caprice Hodge [facility] Medical Branch HB ECG ROUTINE & RHYTHM 2022-11-04 17:55:58 Caprice Hodge [facility] STRIP [facility] Branch URINALYSIS 2022-11-04 17:52:00 Caprice Hodge [facility] LIPASE 2022-11-04 17:50:00 Caprice Hodge [facility] TROPONIN I 2022-11-04 17:50:00 Caprice Hodge [facility] COMP. METABOLIC PANEL 2022-11-04 17:50:00 Caprice Hodge [facility] ([id number]) Medical Branch ETHANOL 2022-11-04 17:50:00 Caprice Hodge [facility] CBC WITH DIFF 2022-11-04 17:50:00 Caprice Hodge [facility] CONSENT/REFUSAL FOR 2022-11-04 17:24:22 Doctor Un[facility]igned, No [facility] CONSENT/REFUSAL FOR 2022-09-28 19:06:21 Doctor Unassigned, No [facility] CBC WITH DIFF 2022-08-28 21:49:00 Michelle Justice [facility] SARS-COV-2 COVID-19 2022-08-28 21:43:24 Michelle Justice [facility] ANTONI-SUCROSE VACCINE [address] [place] [address] YRS+, BIVALENT 0.3ML, IM, (PFIZER ARROYO TOP) PNEUMOCOCCAL 20 CONJUGATE 2022-08-28 21:43:00 Michelle Justice Un [facility] (PREVNAR 20) VACCINE Medical [facility] INSURANCE CORRESPONDENCE 2022-08-21 05:01:00 Doctor Unassigned, No [facility] AUTHORIZATION FOR RELEASE 2021-11-27 05:01:00 Doctor Unassigned, No [facility] Encounters Start End Encounter Admission Attending Care Care Encounter Source Date/Time Date/Time Type Type Clinicians Facility Department ID 2021-01-31 Emergency [facility] [id number] Univers 04:31:31 ity [facility] 2021-01-30 Emergency [facility] [id number] Univers 12:18:18 ity [facility] 2021-01-30 Emergency [facility] [id number] Univers 09:17:48 ity [facility] 2021-01-30 Emergency [facility] [id number] Univers 08:18:41 ity [facility] 2021-01-30 Emergency [facility] [id number] Univers 04:52:11 ity of [facility] 2021-01-28 Emergency [facility] [id number] Univers 18:24:20 ity of [facility] 2021-01-28 Emergency [facility] [id number] Univers 04:33:22 ity of [facility] 2021-01-28 Outpatient SABINOSANDEEPJENNIFER [facility] [id number] Univers 04:31:08 BRODIE ity of [facility] 2021-01-28 Emergency [facility] [id number] Univers 01:58:43 ity of [facility] 2021-01-27 Emergency [facility] [id number] Univers 23:31:06 ity of [facility] 2021-01-27 Emergency [facility] [id number] Univers 21:26:13 ity [facility] 2023-01-11 2023-01-11 Outpatient R ROSS GUNTER [facility] [id number] Univers 14:00:00 14:00:00 ROSS GUNTER [facility] 2022-12-12 2022-12-12 Outpatient R VINH [facility] [id number] Univers 13:30:00 13:30:00 MICHELLE combs [facility] 2022-12-06 2022-12-06 [facility] [id number] Univers 00:00:00 00:00:00 Michelle HEALTH [id number] it y of [place] [id number] Real as NATASHA?BLEA [id number] [place] [address] MEDICAL OFFICE BUILDING 2022-12-04 2022-12-04 Transition NolanMANJINDER meyer [id number] Univers 00:00:00 00:00:00 of Care nAderson BADILLO [id number] [id number] [id number] [address] 2022-12-04 2022-12-04 [facility]phone [facility] [id number] Univers 00:00:00 00:00:00 Michelle HEALTH [id number] it y of [facility] [id number] Real as NATASHA?BLEA [id number] [address] MEDICAL OFFICE [facility] 2022-11-28 2022-11-30 Outpatient X TOM [facility] [id number] Univers 16:10:00 11:07:00 DERIC combs [facility] 2022-11-28 2022-11-30 Emergency Tez Ramírez [facility] 1.2. [id number] Univers 16:10:00 11:07:00 Deric SantosWESLEY [id number] ity of [facility] [id number] [id number] [address] 2022-11-22 2022-11-22 Emergency X [facility] ERT [id number] Univers 12:58:00 15:41:00 JAIRO angiegautam [facility] 2022-11-22 2022-11-22 Emergency [facility] [id number] Univers 12:58:00 15:41:00 Jairo MATT [id number] i ty of [facility] [id number] [id number] [address] 2022-11-16 2022-11-16 Telephone Lu [facility] [id number] Univers 00:00:00 00:00:00 [facility] [id number] ity of [place] [id number] Real as NATASHA?BLEA [id number] [address] OFFICE [facility] 2022-11-15 2022-11-15 Outpatient R ROSS GUNTER [facility] [id number] Univers 10:20:00 11:30:24 ROSS GUNTER [facility] 2022-11-15 2022-11-15 Office [facility] [id number] Univers 10:20:00 11:30:24 Visit [facility] [id number] ity of [facility] [id number] Real as NATASHA?BLEA [id number] [facility] [address] [place] MEDICAL OFFICE BUILDING 2022-11-15 2022-11-15 Transition MANJINDER Olivier [id number] Univers 00:00:00 00:00:00 of Care Jenniffer MCCARTHYY [id number] [id number] [id number] [facility] [address] [place] 2022-11-12 2022-11-14 Outpatient U HERI [facility] [id number] Univers 18:51:00 16:49:00 JOE ity of [facility] 2022-11-12 2022-11-14 Emergency Regis Obando [facility] [id number] Univers 18:51:00 16:49:00 Joe Treadwell [facility] [id number] it[id number] [id number] [facility] 114 Branch (CLC) 2022-11-12 2022-11-12 Orders Doctor CARY [id number] Univers 00:00:00 00:00:00 Only Unassigned, SEAN [id number] ity of [place] [facility] [id number] Real as [id number] [facility] 009 Branch 2022-11-09 2022-11-09 Telephone Vinh [facility] [place] 1.2.610.062 [id number] Univers 00:00:00 00:00:00 Michelle HEALTH 350.1.13.10 it y of [place] 4.2.7.2.686 Real as NATASHA?BLEA [phone] [address] MEDICAL OFFICE [facility] 2022-11-07 2022-11-07 Transition MANJINDER Francisco 1.2.840.114 [id number] Univers 00:00:00 00:00:00 of Care Anderson BADILLO 350.1.13.10 ity of [place]2.7.2.686 [place] [phone] [facility] [address] 2022-11-04 2022-11-06 Outpatient X TOM [facility] [id number] Univers 12:36:00 13:55:00 DERIC combs [facility] 2022-11-04 2022-11-06 Emergency Caprice Hodge [facility] 1.2.840.1 14 [id number] Univers 12:36:00 13:55:00 Deric Santos MATT 350.1.13.10 ity of [facility] 4.2.7.2.686 [place] [facility] [phone] [address] 2022-10-31 2022-10-31 [facility] 1.2.840.114 [id number] Univers 00:00:00 00:00:00 Michelle HEALTH 350.1.13.10 it y of [facility] 4.2.7.2.686 Real as NATASHA?BLEA [phone] [address] MEDICAL OFFICE [facility] 2022-10-24 2022-10-24 [facility] 1.2.840.114 [id number] Univers 00:00:00 00:00:00 [facility] 350.1.13.10 it y of Leo [facility] 4.2.7.2.686 Real as NATASHA?BLEA [id number] [address] MEDICAL OFFICE [facility] 2022-10-22 2022-10-22 Telephone [facility] 1.2.490.090 [id number] Univers 00:00:00 00:00:00 Ross HEALTH 350.1.13.10 ity of [place] 4.2.7.2.686 Real as NATASHA?BLEA [phone] [address] MEDICAL OFFICE [facility] 2022-10-11 2022-10-11 Outpatient R ROSS GUNTER [facility] [id number] Univers 13:40:00 13:55:29 ROSS GUNTER [facility] 2022-10-11 2022-10-11 Office [facility] 1.2.840.114 [id number] Univers 13:40:00 13:55:29 Visit [facility] 350.1.13.10 ity of [place] 4.2.7.2.686 Real as NATASHA?BLEA [phone] [address] MEDICAL OFFICE [facility] 2022-10-08 2022-10-08 Outpatient R [facility] [id number] Univers 13:00:00 13:00:00 ity of [facility] 2022-10-04 2022-10-04 [facility] 1.2.840.114 [id number] Univers 00:00:00 00:00:00 Michelle HEALTH 350.1.13.10 it y of [place] 4.2.7.2.686 Real as NATASHA?BLEA [phone] [address] MEDICAL OFFICE [facility] 2022-10-01 2022-10-01 [facility] 1.2.840.114 [id number] Univers 00:00:00 00:00:00 Michelle HEALTH 350.1.13.10 it y of [place] 4.2.7.2.686 Real as NATASHA?BLEA [phone] [address] OFFICE [facility] 2022-09-28 2022-09-28 Office [facility] 1.2.840.114 [id number] Univers 14:20:00 14:40:00 Visit [facility] 350.1.13.10 ity of [place] 4.2.7.2.686 Real as NATASHA?BLEA [phone] [address] OFFICE [facility] 2022-09-28 2022-09-28 Outpatient R ROSS GUNTER [facility] [id number] Univers 14:20:00 14:20:00 ROSS GUNTER [facility] 2022-09-28 2022-09-28 Orders Doctor CARY 1.2.840.114 [id number] Univers 00:00:00 00:00:00 Only Unassigned, SEAN 350.1.13.10 ity of [place] [facility] 4.2.7.2.686 Real as [id number] [address] 2022-09-05 2022-09-05 Telephone [facility] 1.2.954.369 [id number] Univers 00:00:00 00:00:00 Ross HEALTH 350.1.13.10 ity of [facility] 4.2.7.2.686 Real as NATASHA?BLEA [phone] Il nidhi NANCE [address] MEDICAL OFFICE [facility] 2022-08-29 2022-08-29 Telephone Vinh [facility] 1.2.388.811 [id number] Univers 00:00:00 00:00:00 Michelle HEALTH 350.1.13.10 it y of [facility] 4.2.7.2.686 Real as NATASHA?BLEA [id number] Il nidhi NANCE [address] MEDICAL OFFICE [facility] 2022-08-29 2022-08-29 Pre Visit CARY Carroll 1.2.525.149 [id number] Univers 00:00:00 00:00:00 Outreach Jh Mendoza SEAN 350.1.13.10 ity of HOSPITAL 4.2.7.2.686 Real as [phone] [facility] [address] 2022-08-28 2022-08-28 [facility], Ang - [facility] 1.2.840.1 14 [id number] Univers 16:45:00 17:00:00 Visit Unknown, Attending HEALTH 350.1.13.10 ity of [place] 4.2.7.2.686 Real as NATASHA?BLEA [phone] Il nidhi NANCE [address] [facility] OFFICE [facility] 2022-08-28 2022-08-28 Outpatient R VINH [facility] [id number] Univers 15:30:00 16:41:27 MICHELLE ity of [facility] 2022-08-28 2022-08-28 Office [facility] 1.2.840.114 [id number] Univers 15:30:00 16:41:27 Visit Michelle HEALTH 350.1.13.10 it y of [place] 4.2.7.2.686 Real as NATASHA?BLEA [phone] Il nidhi H[address] MEDICAL OFFICE [facility] 2022-08-21 2022-08-21 Orders Doctor TOWNSEND 1.2.840.114 [id number] Univers 00:00:00 00:00:00 Only Unassigned, SEAN 350.1.13.10 ity of [place] [facility] 4.2.7.2.686 Real as [id number] [address] 2022-07-30 2022-07-30 Refill [facility] 1.2.840.114 [id number] Univers 00:00:00 00:00:00 Michelle HEALTH 350.1.13.10 it y of [place] 4.2.7.2.686 Real as NATASHA?BLEA [phone] [address] MEDICAL OFFICE [facility] 2022-06-13 2022-06-13 Telephone [facility] 1.2.840.114 [id number] Univers 00:00:00 00:00:00 Lucy HEALTH 350.1.13.10 it y of [place] 4.2.7.2.686 Real as NATASHA?BLEA [phone] [address] 2022-05-29 2022-05-29 [facility] [id number] Univers 11:00:00 11:00:00 MICHELLE gautam [facility] 2022-05-29 2022-05-29 Outpatient [facility] [id number] Univers 11:00:00 11:00:00 MICHELLE [facility] 2022-05-15 2022-05-15 Outpatient R UNKNOWN, [facility] [id number] Univers 14:00:00 14:00:00 ATTENDING [facility] 2022-02-06 2022-02-06 [facility] [id number] Univers 15:14:07 23:59:00 CHETNA gautam [facility] 2022-02-05 2022-02-05 [facility]phone [facility] 1.2.589.100 [id number] Univers 00:00:00 00:00:00 Michelle HEALTH 350.1.13.10 it y of [place] 4.2.7.2.686 Real as NATASHA?BLEA [id number] [address] 2022-02-03 2022-02-03 [facility] 1.2.840.114 [id number] Univers 00:00:00 00:00:00 Lucy HEALTH 350.1.13.10 it y of [place] 4.2.7.2.686 Real as NATASHA?BLEA [phone] Il nidhi NANCE [address] [place] [address] OFFICE [facility] 2022-02-03 2022-02-03 Refsophie Justice [facility] 1.2.840.114 [id number] Univers 00:00:00 00:00:00 Michelle HEALTH 350.1.13.10 it y of [place] 4.2.7.2.686 Real as NATASHA?BLEA [id number] Il nidhi HYATT[address] MEDICAL OFFICE [facility] 2022-02-02 2022-02-02 [facility], Ang - [facility] 1.2.840.1 14 [id number] Univers 12:00:00 12:15:00 Visit DanojosefbernardinoLucy [facility] 350.1.13 .10 ity of [facility] 4.2.7.2.686 Real as NATASHA?BLEA [phone] Il nidhi HYATT [address] [facility] OFFICE [facility] 2022-02-02 2022-02-02 Outpatient R EVON [facility] [id number] Univers 11:30:00 12:07:03 CHETNA ity [facility] 2022-02-02 2022-02-02 Office [facility] 1.2.840.114 [id number] Univers 11:30:00 12:07:03 Visit [facility] 350.1.13.10 it y of [place] 4.2.7.2.686 Real as NATASHA?BLEA [phone] [address] OFFICE [facility] 2022-01-22 2022-01-22 Outpatient R BLAIR GALINDO [facility] 10 [id number] Univers 09:00:00 09:00:00 BLAIR GALINDO i ty of [facility] 2022-01-08 2022-01-08 Outpatient R BLAIR GALINDO [facility] 10 [id number] Univers 10:30:00 10:30:00 BLAIR GALINDO i ty of [facility] 2022-01-08 2022-01-08 Refill Edmund [facility] 1.2.840.114 [id number] Univers 00:00:00 00:00:00 Lucy HEALTH 350.1.13.10 it y of [place] 4.2.7.2.686 Real as NATASHA?BLEA [phone] [address] OFFICE [facility] 2021-11-27 2021-11-27 Outpatient R VINH [facility] [id number] Univers 11:00:00 11:50:48 MICHELLE combs [facility] 2021-11-27 2021-11-27 Office [facility] 1.2.840.114 [id number] Univers 11:00:00 11:50:48 Visit Michelle [facility] 350.1.13.10 it y of [place] 4.2.7.2.686 Real as NATASAH?BLEA [phone] [address] OFFICE [facility] 2021-11-27 2021-11-27 Outpatient [facility] [id number] Univers 11:00:00 11:50:48 MICHELLE combs [facility] 2021-11-27 2021-11-27 Orders Doctor CARY 1.2.840.114 [id number] Univers 00:00:00 00:00:00 Only Unassigned, SEAN 350.1.13.10 ity of [place] [facility] 4.2.7.2.686 Real as [id number] [address] 2021-11-24 2021-11-24 Telephone [facility] 1.2.840.114 [id number] Univers 00:00:00 00:00:00 [facility] 350.1.13.10 it y of [place] 4.2.7.2.686 Real as NATASHA?BLEA [id number] [address] OFFICE [facility] 2021-11-08 2021-11-08 Outpatient R DIMITRIS [facility] [id number] Univers 10:30:00 10:30:00 HORTENSIA garret [facility] 2021-10-27 2021-10-27 Telephone [facility] 1.2.840.114 [id number] Univers 00:00:00 00:00:00 Lucy HEALTH 350.1.13.10 it y of [place] 4.2.7.2.686 Real as NATASHA?BLEA [id number] Il nidhi NANCE [address] [place] [address] OFFICE [facility] 2021-09-13 2021-09-13 Telephone [facility] 1.2.840.114 [id number] Univers 00:00:00 00:00:00 Lucy HEALTH 350.1.13.10 it y of [place] 4.2.7.2.686 Real as NATASHA?BLEA [phone] Il nidhi NANCE [address] [place] [address] OFFICE [facility] 2021-08-14 2021-08-14 [facility] 1.2.840.114 [id number] Univers 00:00:00 00:00:00 Lucy HEALTH 350.1.13.10 it y of [place] 4.2.7.2.686 Real as NATASHA?BLEA [phone] Il nidhi NANCE [address] [place] [address] OFFICE [facility] 2021-08-14 2021-08-14 [facility] 1.2.840.114 [id number] Univers 00:00:00 00:00:00 Wondiful A HEALTH 350.1.13.10 ity of [place] 4.2.7.2.686 Real as NATASHA?BLEA [id number] Il nidhi NANCE [address] [place] [address] OFFICE [facility] 2021-08-14 2021-08-14 [facility] 1.2.840.114 [id number] Univers 00:00:00 00:00:00 Wondiful A HEALTH 350.1.13.10 ity of [place] 4.2.7.2.686 Real as NATASHA?BLEA [id number] Il nidhi NANCE [address] [place] [address] OFFICE [facility] 2021-08-11 2021-08-11 Telephone [facility] 1.2.840.114 [id number] Univers 00:00:00 00:00:00 Lucy HEALTH 350.1.13.10 it y of [place] 4.2.7.2.686 Real as NATASHA?BLEA [phone] Il nidhi NANCE [address] [place] [address] OFFICE [facility] 2021-08-10 2021-08-10 Telephone [facility] 1.2.840.114 [id number] Univers 00:00:00 00:00:00 Lucy [facility] 350.1.13.10 it y of [place] 4.2.7.2.686 Real as NATASHA?BLEA [phone] Il nidhi NANCE [address] [facility] OFFICE [facility] 2021-08-09 2021-08-09 [facility], Ang - Db [facility] 1.2.840.1 14 [id number] Univers 13:30:00 13:37:44 Visit Edmund Lucy quan [facility] 350.1.13 .10 ity of [place] 4.2.7.2.686 Real as NATASHA?BLEA [phone] Il nidhi NANCE [address] [facility] OFFICE [facility] 2021-08-09 2021-08-09 Outpatient Sara SHAFFER [facility] [id number] Univers 13:00:00 13:29:43 LUCY [facility] 2021-08-09 2021-08-09 Office [facility] 1.2.840.114 [id number] Univers 13:00:00 13:15:00 Visit [facility] 350.1.13.10 it y of [place] 4.2.7.2.686 Real as NATASHA?BLEA [phone] Il nidhi [address] 2021-08-09 2021-08-09 Outpatient Sara SHAFFER [facility] [id number] Univers 13:00:00 13:00:00 LUCY [facility] 2021-07-11 2021-07-11 Outpatient Sara SHAFFER [facility] [id number] Univers 13:30:00 14:00:44 LUCY [facility] 2021-07-11 2021-07-11 Outpatient Sara SHAFFER [facility] [id number] Univers 13:30:00 14:00:44 LUCY [facility] 2021-07-11 2021-07-11 [facility] 1.2.840.114 [id number] Univers 13:30:00 14:00:00 Visit [facility] 350.1.13.10 it y of [place] 4.2.7.2.686 Real as NATASHA?BLEA [phone] [address] OFFICE [facility] 2021-07-11 2021-07-11 Outpatient Sara SHAFFER [facility] [id number] Univers 13:30:00 13:30:00 LUCY ity [facility] 2021-07-11 2021-07-11 Orders Doctor CARY 1.2.840.114 [id number] Univers 00:00:00 00:00:00 Only Unassigned, SEAN 350.1.13.10 ity of [place] [facility] 4.2.7.2.686 Real as [id number] [address] 2021-06-29 2021-06-29 Orders Doctor CARY 1.2.840.114 [id number] Univers 00:00:00 00:00:00 Only Unassigned, SEAN 350.1.13.10 ity of [place] [facility] 4.2.7.2.686 Real as [phone] [address] 2021-06-16 2021-06-16 [facility] 1.2.840.114 [id number] Univers 00:00:00 00:00:00 Wondiful A HEALTH 350.1.13.10 ity of [place] 4.2.7.2.686 Real as NATASHA?BLEA [phone] [address] OFFICE [facility] 2021-06-12 2021-06-13 Emergency X ABEBA, K [facility] ERT [id number] Univers 20:06:00 02:41:00 ity of [facility] 2021-06-12 2021-06-13 Emergency Abeba, K [facility] 1.2.840.114 [id number] Univers 20:06:00 02:41:00 Mel CHAPMAN 350.1.13.10 i ty of [place] 4.2.7.2.686 [place] [facility] [phone] [facility] [address] 2021-06-12 2021-06-13 Emergency X ABEBA, K [facility] ERT [id number] Univers 20:06:00 02:41:00 ity of [facility] 2021-04-07 2021-04-07 Outpatient BLAIR EASTMAN [facility] [id number] Univers 13:00:00 13:00:00 BLAIR GALINDO i ty of [facility] 2021-03-23 2021-03-23 Outpatient R GALLARDO, [facility] [id number] Univers 15:30:00 15:30:00 MAURIZIO gautam [facility] 2021-03-16 2021-03-16 Outpatient R GALLARDO, [facility] [id number] Univers 15:30:00 15:30:00 MAURIZIO gautam [facility] 2021-03-03 2021-03-03 Outpatient R KARTHIKEYAN [facility] [id number] Univers 08:30:00 08:30:00 SADIQ [facility] 2021-02-09 2021-02-09 Transition MANJINDER [place] 1.2.840.114 [id number] Univers 00:00:00 00:00:00 of Care Sayra BADILLO 350.1.13.10 i ty of [place] 4.2.7.2.686 [place] [phone] [facility] [address] 2021-02-05 2021-02-08 [facility] [id number] Univers 10:43:00 17:37:00 CHIDI gautam [facility] 2021-02-05 2021-02-08 Emergency Bonilla Lennox [facility] 1.2.840. 114 [id number] Univers 10:43:00 17:37:00 Chidi Krishnan 350.1.13.10 ity of [place] 4.2.7.2.686 [place] [phone] [facility] [address] 2021-02-02 2021-02-02 Transition MANJINDER Francisco 1.2.840.114 [id number] Univers 00:00:00 00:00:00 of Care Anderson [place]O 350.1.13.10 ity of [place] 4.2.7.2.686 [place] [id number] [facility] [address] 2021-01-27 2021-02-01 Inpatient X MEDINA [facility] DEWEY [id number] Univers 22:36:00 16:30:00 GIRISH combs of [facility] 2021-01-27 2021-02-01 Hospital Urszula Baeza [facility] 1.2.840. 114 [id number] Univers 22:36:00 16:30:00 Encounter Girish Haney 350.1.13.10 ity of [facility] 4.2.7.2.686 [place] [id number] [facility] [address] 2021-01-31 2021-01-31 Patient Fabiano [facility] 1.2.840.114 [id number] Univers 00:00:00 00:00:00 Outreach Wendy Duncan HEALTH 350.1.13.10 i ty of [place] 4.2.7.2.686 Real as NATASHA?BLEA [phone] [address] MEDICAL OFFICE BUILDING 2021-01-21 2021-01-21 Emergency [facility] 1.2.366.949 [id number] Univers 03:45:00 05:15:00 Jairo Chapman 350.1.13.10 i ty of [place] 4.2.7.2.686 [facility] [phone] [place] [address] [place] 2021-01-21 2021-01-21 Emergency X [facility] ERT [id number] Univers 03:45:00 05:15:00 JAIRO angiegautam [facility] 2021-01-10 2021-01-10 Transition Manjinder [place] 1.2.840.114 [id number] Univers 00:00:00 00:00:00 of Care Sayra Badillo 350.1.13.10 i ty of [place] 4.2.7.2.686 [place] [id number] [facility] [address] 2021-01-04 2021-01-08 Hospital Yefri Claudio [facility] 1.2.840.1 14 [id number] Univers 16:12:00 13:20:00 Encounter Joe Treadwell [facility] 350.1.13.10 ity of [place] 4.2.7.2.686 [place] [facility] [phone] [address] ([facility]) 2021-01-042021-01-08 Inpatient X HERI [facility] DEWEY [id number] Univers 16:12:00 13:20:00 JOE garret [facility] 2021-01-08 2021-01-08 Telephone Shelby Diaz [facility] 1.2.840.114 [id number] Univers 00:00:00 00:00:00 Health 350.1.13.10 it y of [place] 4.2.7.2.686 [facility] [phone] [address] ([facility]) 2021-01-05 2021-01-05 Surgery [facility] 1.2.840.114 [id number] Univers 13:15:00 14:36:00 Sadiq SPECIALTY 350.1.13.10 ity of CARE 4.2.7.2.[address] [facility] [place] AT [phone] [address] 2021-01-04 2021-01-04 Emergency [facility] 1.2.717.187 [id number] Univers 12:49:00 15:28:00 Jairo Chapman 350.1.13.10 i ty of [place] 4.2.7.2.686 [facility] [id number] [facility] [address] 2020-12-23 2020-12-23 Transition Manjinder Pearce 1.2.840.114 [id number] Univers 00:00:00 00:00:00 of Care Debra Badillo 350.1.13.10 i ty of [place] 4.2.7.2.686 [facility] [phone] [facility] [address] 2020-12-15 2020-12-22 Hospital Jairo Marin [facility] 1.2.840.1 14 [id number] Univers 09:02:00 14:05:00 Encounter Deric Santos 350.1.13.10 ity of [place] 4.2.7.2.686 [facility] [id number] [facility] [address] 2020-12-15 2020-12-22 Inpatient X TOM [facility] DEWEY [id number] Univers 09:02:00 14:05:00 DERIC combs [facility] 2020-12-19 2020-12-19 Outpatient R [facility] [id number] Univers 16:00:00 16:00:00 ity of [facility] 2020-12-15 2020-12-15 [facility] [id number] Univers 14:30:00 14:30:00 WONDIFUL ity o f [facility] 2020-12-12 2020-12-12 Telephone [facility] 1.2.840.114 [id number] Univers 00:00:00 00:00:00 Wondiful A Health 350.1.13.10 ity of [place] 4.2.7.2.686 Real as Natasha?Blea [phone] Il israpam [address] Medical Office Building 2020-12-11 2020-12-11 Emergency [facility] ERT [id number] Univers 09:03:00 12:08:00 CATALINA itgautam [facility] 2020-12-11 2020-12-11 Emergency [facility] 1.2.840.114 [id number] Univers 09:03:00 12:08:00 Catalina Chapman 350.1.13.10 ity of [place] 4.2.7.2.686 [place] [phone] [place] [address] 2020-12-01 2020-12-01 Transition Manjinder Pearce 1.2.840.114 [id number] Univers 00:00:00 00:00:00 of Care Debra Badillo 350.1.13.10 i ty of [place] 4.2.7.2.686 [place] [id number] [facility] [address] 2020-11-23 2020-11-30 [facility] Malcolm Altman [facility] 1.2.840. 114 [id number] Univers 19:30:00 16:06:00 Encounter Girish Haney 350.1.13.10 ity of [place] 4.2.7.2.686 [place] [phone] [place] [address] [place] 2020-11-23 2020-11-30 Inpatient X ANUPAMA [facility] [id number] Univers 19:30:00 16:06:00 MALCOLM ity of [facility] 2020-11-23 2020-11-23 Orders Doctor CARY 1.2.840.114 [id number] Univers 00:00:00 00:00:00 Only Unassigned, SEAN 350.1.13.10 ity of [place] [facility] 4.2.7.2.686 Real as [phone] [facility] [address] 2020-11-08 2020-11-08 [facility]ill [facility] 1.2.840.114 [id number] Univers 00:00:00 00:00:00 Wondiful A Health 350.1.13.10 ity of [place] 4.2.7.2.686 Real as Professio [id number] [address] Office [facility] 2020-11-04 2020-11-04 Office [facility] 1.2.840.114 [id number] [facility] 10:43:14 11:27:21 Visit [facility] 350.1.13.10 ity of [place] 4.2.7.2.686 Real as Professio [phone] [address] Office [facility] One 2020-11-04 2020-11-04 Outpatient R YULIANA [facility] [id number] Univers 10:45:00 10:45:00 WONDIFUL ity o f [facility] 2020-10-30 2020-10-31 Emergency [facility] [id number] Univers 22:35:00 02:17:00 Urszula Mendoza [place] 350.1.13.10 ity of [place] [phone] [facility] 0[address] [place] 2020-10-31 2020-10-31 [facility]phone [facility] 1.2.840.114 [id number] Univers 00:00:00 00:00:00 [facility] 350.1.13.10 ity of [place] [id number] Real as Professio [phone] [address] Office Building One 2020-10-28 2020-10-28 Telephone Yuliana [facility] 1.2.840.114 [id number] Univers 00:00:00 00:00:00 [facility] 350.1.13.10 ity of [place] 4.2.7.2.686 Real as Professio [phone] [address] Office [facility] One 2020-10-18 2020-10-18 Emergency , [facility] [id number] Univers 02:29:00 04:26:00 Jairo Chapman 350.1.13.10 i ty of [place] 4[place]2.7.2.[place] [phone] [address] 2020-10-18 2020-10-18 [facility] [facility] 1.2.840.114 [id number] Univers 00:00:00 00:00:00 [facility] 350.1.13.10 ity of [place] 4.2.7.2.686 Real as Professio [phone] [address] One 2020-10-13 2020-10-13 Emergency Felisha, [facility] 1.2.437.081 [id number] Univers 02:21:00 05:01:00 Urszula Chapman 350.1.13.10 ity of [place] 4.2.7.2.[address] [facility] [phone] [place] [id number] [place] 2020-10-10 2020-10-10 [facility] 1.2.840.114 [id number] Univers 00:00:00 00:00:00 [facility] 350.1.13.10 ity of [place] 4.2.7.2.686 Real as Professio [phone] [address] Office [facility] One 2020-10-07 2020-10-07 Orders Doctor CARY 1.2.840.114 [id number] Univers 00:00:00 00:00:00 Only Unassigned, SEAN 350.1.13.10 ity of [place] [facility] 4.2.7.2.686 Real as [phone] [address] 2020-10-062020-10-06 [facility]phone [facility] 1.2.840.114 [id number] Univers 00:00:00 00:00:00 [facility] 350.1.13.10 ity of [place] 4.2.7.2.686 Real as Professio [phone] Il nidhi [address] One 2020-10-06 2020-10-06 [facility] 1.2.840.114 [id number] Univers 00:00:00 00:00:00 Wondiful A Health 350.1.13.10 ity of [place] 4.2.7.2.686 Real as Professio [phone] [facility] nal [address] [place] [address] One 2020-10-03 2020-10-03 Office [facility] 1.2.840.114 [id number] Univers 16:28:13 17:20:02 Visit Wondiful A Health 350.1.13.10 ity of [place] 4.2.7.2.686 Real as Professio [phone] [address] One 2020-10-03 2020-10-03 [facility] [id number] Univers 16:30:00 16:30:00 WONDIFUL ity o f [facility] 2020-09-30 2020-09-30 [facility]field [facility] 1.2.840.114 [id number] Univers 00:00:00 00:00:00 Wondiful A Health 350.1.13.10 ity of [place] 4.2.7.2.686 Real as Professio [phone] Il dic[address] One 2020-09-28 2020-09-28 Emergency [facility] 1.2.511.198 [id number] 08:21:00 11:41:00 Lennox [place] 350.1.13.10 [place] 4.2.7.2.686 [place] [phone] 2020-09-28 2020-09-28 Emergency [facility] 1.2.791.086 [id number] Univers 08:21:00 11:41:00 Lennoxyanick [place] 350.1.13.10 i ty of [place].2.7.2.686 [place] [phone] [facility] [address] 2020-09-27 2020-09-27 Routeman Tonia Connolly Lab Main [facility] 1.2.8 40.114 [id number] Univers 17:06:57 17:21:57 Visit Mike Story 350.1.13.10 ity of [place].2.7.2.[place] Profess[place] [phone] [facility] [address] Building 2020-09-27 2020-09-27 Office [facility] 1.2.840.114 [id number] 16:25:25 16:55:20 Visit Mike [facility] 350.1.13.10 [place] 4.2.7.2.686 Professio [phone] [facility] 044 Office Building One 2020-09-27 2020-09-27 Office [facility] 1.2.840.114 [id number] [facility] 16:25:25 16:55:20 Visit [facility] 350.1.13.10 i ty of [place] 4.2.7.2.686 Real as Professio [phone] [facility] [address] Office Building One 2020-09-27 2020-09-27 Outpatient R [facility] [id number] [facility] 16:30:00 16:30:00 MIKE adamsy o f [facility] 2020-09-26 2020-09-26 Transition Manjinder Pearce 1.2.840.114 [id number] Univers 00:00:00 00:00:00 of Care Debra Silvia Badillo 350.1.13.10 i ty of [place].2.7.2.686 [place] [phone] [facility] [address] 2020-09-21 2020-09-24 [facility] Taras Us [facility] 1.2.840.1 14 [id number] Univers 16:20:00 15:47:00 Encounter Deric Santos 350.1.13.10 ity of [place] 4.2.7.2.686 [facility] [phone] [facility] [address] 2020-09-21 2020-09-24 Outpatient X TOM [facility] DEWEY [id number] Univers 16:20:00 15:47:00 DERIC combs [facility] 2020-09-22 2020-09-22 Outpatient R EVON [facility] [id number] Univers 14:00:00 14:00:00 CHETNA angiegautam [facility] 2020-09-16 2020-09-16 Telephone Yuliana [facility] 1.2.840.114 [id number] Univers 00:00:00 00:00:00 Wondiful A Health 350.1.13.10 ity of [place] 4.2.7.2.686 Real as Professio [phone] [address] One 2020-09-13 2020-09-13 Orders Doctor CARY 1.2.840.114 [id number] Univers 00:00:00 00:00:00 Only Unassigned, SEAN 350.1.13.10 ity of [place] [facility] 4.2.7.2.686 Real as [phone] [facility] [address] 2020-09-06 2020-09-06 Refill [facility] 1.2.840.114 [id number] Univers 00:00:00 00:00:00 Wondiful A Health 350.1.13.10 ity of [place] 4.2.7.2.686 Real as Professio [phone] [address] Office [facility] One 2020-08-26 2020-08-28 [facility] Nyla Dixon [facility] 1 .2.840.114 [id number] Univers 09:07:00 11:38:00 Encounter Deric Santos 350.1.13.10 ity of [place] 4.2.7.2.686 [facility] [phone] [place] [address] 2020-08-26 2020-08-28 Inpatient X TOM [facility] DEWEY [id number] Univers 09:07:00 11:38:00 DERIC combs [facility] 2020-08-26 2020-08-28 Inpatient X TOM [facility] DEWEY [id number] Univers 09:07:00 11:38:00 DERIC [facility] 2020-08-24 2020-08-24 Transition Gilberto Pearcetono 1.2.840.114 [id number] Univers 00:00:00 00:00:00 of Care Debra Badillo 350.1.13.10 i ty of [place] 4.2.7.2.686 [place] [phone] [facility] [address] 2020-08-22 2020-08-23 [facility] Jairo Marin [facility] 1.2.840.1 14 [id number] Univers 09:28:00 16:15:00 Encounter Chidi Krishnan 350.1.13.10 ity of [place].2.686 [place] [phone] [facility] [address] 2020-08-22 2020-08-23 Outpatient X KIMO [facility] DEWEY [id number] Univers 09:28:00 16:15:00 CHIDI [facility] 2020-07-12 2020-07-12 Outpatient [facility] [id number] Univers 13:00:00 13:00:00 WONDIFUL ity o f [facility] 2020-06-15 2020-06-15 Refsophie [facility] 1.2.840.114 [id number] Univers 00:00:00 00:00:00 Wondiful A Health 350.1.13.10 ity of [place] 4.2.7.2.686 Real as Professio [phone] Il dical [facility] [address] Building One 2020-05-31 2020-05-31 Outpatient R EDMUND [facility] [id number] Univers 15:45:00 15:45:00 LUCY [facility] 2020-04-20 2020-04-20 Emergency [facility] 1.2.829.796 [id number] Univers 16:13:00 21:39:00 Kary Chapman 350.1.13.10 i ty of [place].2.[place].2.686 [place] [phone] [facility] [address] 2020-04-20 2020-04-20 Telephone Yuliana [facility] 1.2.840.114 [id number] Univers 00:00:00 00:00:00 Wondiful A Health 350.1.13.10 ity of [place] 4.2.7.2.686 Real as Professio [phone] [address] Office [facility] One 2020-04-14 2020-04-14 Outpatient [facility] [id number] Univers 10:00:00 10:00:00 KARISHMA combs [facility] 2020-04-04 2020-04-04 Outpatient R TEQUILA [facility] [id number] Univers 09:30:00 09:30:00 CINDY combs [facility] 2020-03-31 2020-03-31 Outpatient [facility] [id number] Univers 09:30:00 09:30:00 KARISHMA [facility] 2020-03-28 2020-03-28 Orders Doctor [place] 1.2.840.114 [id number] Univers 00:00:00 00:00:00 Only Unassigned, SEAN 350.1.13.10 ity of [place] [facility] 4.2.7.2.686 Real as [phone] [facility] [address] 2020-03-23 2020-03-23 Outpatient [facility] [id number] Univers 14:45:00 14:45:00 KARISHMA combs [facility] 2020-03-21 2020-03-21 Telephone Yuliana [facility] 1.2.840.114 [id number] Univers 00:00:00 00:00:00 Wondiful A Health 350.1.13.10 ity of [place] 4.2.7.2.686 Real as Professio [phone] [address] 2020-03-17 2020-03-17 Outpatient [facility] [id number] Univers 09:15:00 09:15:00 KARISHMA combs [facility] 2020-03-15 2020-03-15 Telephone Yuliana [facility] 1.2.840.114 [id number] Univers 00:00:00 00:00:00 Wondiful A Health 350.1.13.10 ity of [place] 4.2.7.2.686 Real as Professio [phone] [facility] 044 [facility] 2020-03-09 2020-03-09 [facility] 1.2.840.114 [id number] Univers 00:00:00 00:00:00 Wondiful A Health 350.1.13.10 ity of [place] 4.2.7.2.686 Real as Professio [phone] [facility] 044 [facility] 2020-03-07 2020-03-07 Office [facility] 1.2.840.114 [id number] Univers 10:31:23 11:33:24 Visit Wondiful A Health 350.1.13.10 ity of [place] 4.2.7.2.686 Real as Professio [phone] [facility] 044 [facility] 2020-03-07 2020-03-07 Office [facility] 1.2.002.097 [id number] Univers 09:21:46 10:08:12 Visit Cindy Chapman 350.1.13.10 i ty of [place]2.[place] [phone] [facility] 188 [facility] 2020-03-07 2020-03-07 Outpatient [facility] [id number] Univers 09:15:00 09:15:00 CINDY combs [facility] 2020-02-23 2020-02-23 Outpatient [facility] [id number] Univers 09:00:00 09:00:00 ALEXIS adamsy [facility] 2020-02-18 2020-02-18 Transition Manjinder Morrison 1.2.840.114 [id number] Univers 00:00:00 00:00:00 of Care Keya Badillo 350.1.13.10 it y of [place] [phone] [address] 2020-02-17 2020-02-17 Outpatient R ETHEL [facility] [id number] Univers 00:00:00 00:00:00 RAWAN ity of [facility] 2020-02-17 2020-02-17 Outpatient R ETHEL [facility] [id number] Univers 00:00:00 00:00:00 RAWAN ity of [facility] 2020-02-17 2020-02-17 Transition Manjinder Morrison 1.2.840.114 [id number] Univers 00:00:00 00:00:00 of Brian Badillo 350.1.13.10 it y of [place] 4.2.7.2.686 [place] [phone] [facility] [address] 2020-02-09 2020-02-16 [facility] Dayron Rushn [facility] 1.2.840.1 14 [id number] Univers 16:05:00 17:18:00 Encounter Chidi Krishnan 350.1.13.10 ity of [place] 4.2.7.2.[place] [phone] [facility] [address] 2020-02-09 2020-02-09 Routeman Lab, Adc [facility] Pob I [facility] 1.2. 840.114 [id number] Univers 15:44:03 16:04:03 Visit Chetna Barnard 350.1.13.10 ity of [place] 4.2.7.2.686 [place] Professio [phone] Il dical nal [address] Office [facility] One 2020-02-09 2020-02-09 Office Yuliana [facility] 1.2.840.114 [id number] Univers 15:16:59 15:50:02 Visit Tatokjful A Health 350.1.13.10 ity of [place] 4.2.7.2.686 [facility] Professio [phone] Il dical nal [address] Building One 2020-02-09 2020-02-09 Outpatient R YULIANA, [facility] [id number] Univers 15:30:00 15:30:00 WONDIFUL ity o f [facility] 2020-02-04 2020-02-04 Transition Manjinder Morrison ..840.114 [id number] Univers 00:00:00 00:00:00 of Care Keya Badillo 350.1.13.10 it y of [place].2.7.2.[place] [phone] [facility] [address] 2020-02-03 2020-02-03 Transition Manjinder Morrison 1.2.840.114 [id number] Univers 00:00:00 00:00:00 of Care Keya Badillo 350.1.13.10 it y of [place] 4.2.7.2.[place] [phone] [facility] [address] 2020-01-28 2020-02-02 [facility] Machelle Dontrell Sally 1.2.840.11 [id number] Univers 22:39:00 17:40:00 Encounter Eli Toney 350.1.13.10 ity of [facility] 4.2.7.2.6 [place] Sandra Givens [phone] [facility] [address] 2020-02-02 2020-02-02 Case CARY [place] 1.2.840.114 [id number] Univers 00:00:00 00:00:00 Management Alexis Rosadodakota ESTRADA 350.1.13.10 ity of [facility] 4.2.7.2.686 Real as [phone] [facility] [address] 2020-02-01 2020-02-01 Anesthesia Kamille Varma [facility] 1.2.840 .114 [id number] Univers 11:11:00 11:46:00 Preston Murray [place] 350.1.13.10 ity of [facility] 4.2.7.2.686 Real as BLDG [phone] [facility] [address] 2020-01-28 2020-01-28 Outpatient R YULIANA [facility] [id number] Univers 09:00:00 09:00:00 WONDIFUL ity o f [facility] 2020-01-28 2020-01-28 Telephone Yuliana [facility] 1.2.840.114 [id number] Univers 00:00:00 00:00:00 Wondiful A Health 350.1.13.10 ity of [place] 4.2.7.2.686 Real as Professio [phone] Il dical nal [address] Office Building One 2020-01-26 2020-01-26 Office TAMMY [place] 1.2.399.160 [id number] Univers 08:27:31 09:20:57 Visit Alexis Moss [facility] 350.1.13.10 ity of [place] 4.2.7.2.[place] [phone] [facility] [address] 2020-01-26 2020-01-26 Outpatient R EMANUELMEREDITH [facility] [id number] Univers 09:00:00 09:00:00 RAWAN ity of [facility] 2020-01-21 2020-01-21 Transition Manjinder Francisco 1.2.840.114 [id number] Univers 00:00:00 00:00:00 of Care Anderson Badillo 350.1.13.10 ity of [place] 4.2.7.2.[place] [phone] [facility] [address] 2020-01-15 2020-01-20 [facility] Jaquelin Eligio Betsy [facility] 1.2.840.114 [id number] Univers 23:47:00 17:26:00 Encounter Eli Toney 350.1.13.10 ity of [place] 4.2.7.2.[place] [phone] [facility] [address] 2020-01-15 2020-01-15 Orders Doctor CARY 1.2.840.114 [id number] Univers 00:00:00 00:00:00 Only Unassigned, SEAN 350.1.13.10 ity of [place] [facility] 4.2.7.2.686 Real as [phone] [facility] [address] 2020-01-12 2020-01-12 Transition Manjinder Francisco 1.2.840.114 [id number] Univers 00:00:00 00:00:00 of Care Anderson Badillo 350.1.13.10 ity of [place] 4.2.7.2.686 [place] [phone] [facility] [address] 2020-01-05 2020-01-11 [facility] Kaela Marciarose Ruiz [facility] 1.2.840.11 4 [id number] Univers 15:45:00 14:20:00 Encounter Maurice Chaudhary 350.1.13.10 ity of [place] 4[place]2.[place].2.686 [place] [phone] [address] 2020-01-05 2020-01-05 Urgent Provider, [facility] Urgent Care [facility] 1.2.840.114 [id number] Univers 15:08:18 15:28:18 Care Laura Barnardsarah Sims 350.1.13.10 ity of [place] 4.2.7.2.686 Real as Professio [phone] [address] Office [facility] 2020-01-05 2020-01-05 Outpatient R EVON [facility] [id number] Univers 15:20:00 15:20:00 [facility] 2019-12-17 2019-12-17 Telephone [facility] 1.2.840.114 [id number] Univers 00:00:00 00:00:00 [facility] 350.1.13.10 it y of [place] 4.2.7.2.686 Real as Professio [phone] [address] Office [facility] 2019-12-16 2019-12-16 Rout[facility] Lab, [facility] Fam Pob I [facility] 1.2. 840.114 [id number] Univers 09:31:42 09:41:42 Visit EstradabernardinoLucy Leo [facility] 350.1.13 .10 ity of [place] 4.2.7.2.686 Real as Professio [phone] [address] Office [facility] 2019-12-16 2019-12-16 Office [facility] 1.2.840.114 [id number] Univers 09:09:54 09:24:54 Visit Lucy [facility] 350.1.13.10 it y of [place] 4.2.7.2.686 Real as Professio [phone] [address] Office [facility] 2019-12-16 2019-12-16 [facility]patient [facility] [id number] Univers 09:15:00 09:15:00 LUCY combs [facility] 2019-07-13 2019-07-13 Telephone [facility] 1.2.840.114 [id number] Univers 00:00:00 00:00:00 Wondiful A Health 350.1.13.10 ity of [place] 4.2.7.2.686 Real as Professio [phone] Il dicky nal [address] Office [facility] One 2019-06-29 2019-06-29 Telephone [facility] 1.2.840.114 [id number] Univers 00:00:00 00:00:00 Wondiful A Health 350.1.13.10 ity of [place] 4.2.7.2.686 Real as Professio [phone] [address] One 2019-06-17 2019-06-17 Ancillary Rosa Diggs [facility] 1.2.840 .114 [id number] Univers 12:02:29 13:02:29 Visit Nidhi [facility] 350.1.13.10 ity of [place]2.[place].2.[place] - [phone] [facility] [address] 2019-06-17 2019-06-17 Outpatient [facility] [id number] Univers 13:00:00 13:00:00 NIDHI ity [facility] 2019-06-04 2019-06-05 [facility] 1.2.840.114 [id number] Univers 14:36:18 15:59:44 Visit Maurizio Health 350.1.13.10 it y of [place] 4.2.7.2.[place] - [phone] [facility] [address] 2019-06-04 2019-06-04 Outpatient R SAMI [facility] [id number] Univers 15:00:00 15:00:00 MAURIZIO ity [facility] 2019-06-02 2019-06-02 Telephone [facility] .2.840.114 [id number] Univers 00:00:00 00:00:00 Wondiful A Health 350.1.13.10 ity of [place] 4.2.7.2.686 Real as Professio [phone] [facility] [address] Office Building One 2019-05-22 2019-05-22 Telephone [facility] 1.2.840.114 [id number] Univers 00:00:00 00:00:00 Wondiful A Health 350.1.13.10 ity of [place] 4.2.7.2.686 Real as Professio [phone] [address] Office Building One 2019-05-20 2019-05-20 [facility] 1.2.840.114 [id number] Univers 14:00:00 23:59:00 Encounter Maurizio [place] 350.1.13.10 ity of [place] [facility].2.7.2.686 [facility] [phone] [address] 2019-05-20 2019-05-20 Outpatient R [facility] [id number] Univers 13:45:50 13:59:00 MAURIZIO ity of [facility] 2019-05-20 2019-05-20 [facility] 1.2.840.114 [id number] Univers 13:45:00 13:59:00 Encounter Maurizio [place] 350.1.13.10 ity of [place] 4.2.7.2.686 [facility] [phone] [address] 2019-05-20 2019-05-20 Orders Doctor CARY 1.2.840.114 [id number] Univers 00:00:00 00:00:00 Only Unassigned, SEAN 350.1.13.10 ity of [place] [facility] 4.2.7.2.686 Real as [phone] [address] 2019-05-18 2019-05-18 [facility] 1.2.840.114 [id number] Univers 14:09:00 23:59:00 Encounter Maurizio Chapman 350.1.13.10 ity of [place] 4.2.7.2.686 [facility] [phone] [address] 2019-05-18 2019-05-18 [facility] 1.2.840.114 [id number] Univers 14:00:00 14:08:00 Encounter Maurizio Chapman 350.1.13.10 ity of [place] 4.2.7.2.[place] [phone] [facility] [address] 2019-05-18 2019-05-18 Outpatient R SAMI [facility] [id number] Univers 00:00:00 14:08:00 MAURIZIO itgautam [facility] 2019-05-12 2019-05-12 Outpatient R VIDAL [facility] [id number] Univers 14:45:00 14:45:00 LEXIE combs [facility] 2019-05-12 2019-05-12 Routeman Cathleen, Tonia Lab Main [facility] 1.2.8 40.114 [id number] Univers 14:36:22 14:40:52 Visit Lexie Drake 350.1.13 .10 ity of [place] 4.2.7.2.[place] Profess[place] [phone] Il dical [facility] [address] Building 2019-05-12 2019-05-12 Orders Doctor CARY 1.2.840.114 [id number] Univers 00:00:00 00:00:00 Only Unassigned, SEAN 350.1.13.10 ity of [place] [facility] 4.2.7.2.686 Real as [phone] [facility] [address] 2019-05-11 2019-05-11 CARY Tee 1.2.840.114 [id number] Univers 00:00:00 00:00:00 Management Cain ESTRADA 350.1.13.10 ity of [facility] 4.2.7.2.686 Real as [phone] [facility] [address] 2019-05-11 2019-05-11 Telephone Yuliana [facility] 1.2.840.114 [id number] Univers 00:00:00 00:00:00 Wondiful A Health 350.1.13.10 ity of [place] 4.2.7.2.686 Real as Professio [phone] Il dical nal [address] Office Building One 2019-05-08 2019-05-08 Telephone Sami [facility] 1.2.489.809 [id number] Univers 00:00:00 00:00:00 Maurizio Health 350.1.13.10 it y of [place] 4.2.7.2.686 [place] - [phone] [facility] [address] 2019-05-07 2019-05-07 Office Sami [facility] 1.2.840.114 [id number] Univers 15:15:37 18:23:09 Visit Maurizio Health 350.1.13.10 it y of [place] 4.2.7.2.686 [place] - [phone] [address] 2019-05-07 2019-05-07 Outpatient R SAMI [facility] [id number] Univers 15:45:00 15:45:00 MAURIZIO ity of [facility] 2019-04-29 2019-04-29 Telephone Yuliana [facility] 1.2.840.114 [id number] Univers 00:00:00 00:00:00 Wondiful A Health 350.1.13.10 ity of [place] 4.2.7.2.686 Real as Professio [phone] [address] Office [facility] 2019-04-29 2019-04-29 Orders Doctor CARY 1.2.840.114 [id number] Univers 00:00:00 00:00:00 Only Unassigned, SEAN 350.1.13.10 ity of [place] [facility] 4.2.7.2.686 Real as [phone] [address] 2019-04-28 2019-04-28 Outpatient R YULIANA [facility] [id number] Univers 16:00:00 16:46:38 WONDIFUL ity o f [facility] 2019-04-28 2019-04-28 Office Yuliana [facility] 1.2.840.114 [id number] Univers 15:48:42 16:46:38 Visit Wondiful A Health 350.1.13.10 ity of [place] 4.2.7.2.686 Real as Professio [phone] [address] Office Building [facility] 2019-04-13 2019-04-13 Outpatient R YULIANA [facility] [id number] Univers 14:30:00 14:56:12 WONDIFUL ity o f [facility] 2018-06-13 2018-06-13 Outpatient [facility] [id number] Common 13:53:00 13:53:[address] [facility] 2018-03-18 2018-03-18 Outpatient [facility] [id number] Common 16:22:00 16:22:[address] [facility] 2018-03-03 2018-03-03 Outpatient [facility] [id number] Common 15:05:00 15:05:[address] [facility] 2018-01-02 2018-01-02 Outpatient [facility] [id number] Common 11:45:00 11:45:[address] [facility] 2017-12-16 2017-12-16 [place]patient [facility] [id number] Common 09:45:00 09:45:[address] [facility] 2017-10-16 2017-10-16 [facility] [id number] Common 14:17:00 14:17:[address] [facility] 2017-10-15 2017-10-15 [facility] [id number] Common 11:31:00 11:31:[address] [facility] 2017-10-09 2017-10-09 [facility] [id number] Common 15:30:00 15:30:[address] [facility] Results Test Description Test Time Test Comments Results Result Comments Source COMP. METABOLIC PANEL (79821) 2022-11-28 21:55:35 Test Item Value Reference Range Interpretation Comme nts NA (test code = 2583895358) 138 mmol/L 135-145 K (test code = 4762173588) 3.8 mmol/L 3.5-5.0 CL (test code = 8887052122) 102 mmol/L 98-108 CO2 TOTAL (test code = 0867141948) 26 mmol/L 23-31 AGAP (test code = 0547622915) 10 2-16 BUN (test code = 6236547537) 12 mg/dL 7-23 GLUCOSE (test code = 6097193500) 111 mg/dL 70-110 H CREATININE (test code = 0.59 mg/dL 0.60-1.25 L 3373331204) TOTAL BILI (test code = 1.2 mg/dL 0.1-1.1 H 2217957750) CALCIUM (test code = 6502468777) 9.8 mg/dL 8.6-10.6 T PROTEIN (test code = 1029223422) 8.0 g/dL 6.3-8.2 ALBUMIN (test code = 3262560884) 4.5 g/dL 3.5-5.0 ALK PHOS (test code = 4838555215) 115 U/L 34-122 ALTv (test code = 1742-6) 23 U/L 5-50 AST(SGOT) (test code = 8134535608) 31 U/L 13-40 eGFR (test code = 4369842014) 144.3 mL/min/1.73m2 BERYL (test code = BERYL) Association of Glomerular Filtration Rate (GFR) and Staging of Kidney Disease* + +-------- + ------+| GFR (mL/min/1.73 m2) ?| With Kidney Damage ?| ?Without Kidney Damage+ +-- + +| ?>90 ?| ?Stage one ?| ? Normal ?+ +------- + -------+| ?60-89 ?| ?Stage two ?| ? Decreased GFR ? + +-------- + ------+| ?30-59 ?| ?Stage three ?| ? Stage three ? + +-------- + ------+| ?15-29 ?| ?Stage four ? | ? Stage four ?+ +------- + -------+| ?<15 (or dialysis) ? ?| ?Stage five ? | ? Stage five ?+ +------- + -------+ *Each stage assumes the associated GFR [...] or abnormalities in imaging tests). Lab Interpretation (test code = Abnormal 66037-3) [facility] 21[facility]54:50 Test Item Value Reference Range Interpretation Comments LIPASE (test code = 5123826021) 1473 U/L 0-220 H Lab Interpretation (test code = Abnormal 19243-1) [facility] [id number] 21:44:10 Test Item Value Reference Range Interpretation Comments WBC (test code = 13.10 See_Comment H [Automated 6690-2) message] The system which generated this result transmit meng reference range : 4.20 - 10.70 10*3/?L. The reference range was not used to interpret this result as normal/abnormal . RBC (test code = 5.71 See_Comment H [Automated 789-8) message] The system which generated this result transmit meng reference range : 4.26 - 5.52 10*6/?L. The reference range was not used to interpret this result as normal/abnormal . HGB (test code = 18.8 g/dL 12.2-16.4 H 718-7) HCT (test code = 54.2 % 38.4-49.3 H 4544-3) MCV (test code = 94.9 fL 81.7-95.6 787-2) MCH (test code = 32.9 pg 26.1-32.7 H 785-6) MCHC (test code = 34.7 g/dL 31.2-35.0 786-4) RDW-SD (test code = 50.9 fL 38.5-51.6 43721-9) RDW-CV (test code = 14.6 % 12.1-15.4 788-0) PLT (test code = 288 See_Comment [Automated 777-3) message] The system which generated this result transmit meng reference range : 150 - 328 10*3/ ?L. The reference range was not u sed to interpret th is result as normal/abnormal . MPV (test code = 10.0 fL 9.8-13.0 42886-8) NRBC/100 WBC (test 0.0 See_Comment [Automat ed code = 6700078464) message] The system which generated this result transmit meng reference range : 0.0 - 10.0 /100 WBCs. The reference range was not used to interpret this result as normal/abnormal . NRBC x10^3 (test code See_Comment [Auto mated = 3454440154) message] The system which generated this result transmit meng reference range : 10*3/?L. The reference range was not used to interpret this result as normal/abnormal . GRAN MAT (NEUT) % 82.5 % (test code = 770-8) IMM GRAN % (test code 0.60 % = 3903245126) LYMPH % (test code = 7.6 % 736-9) MONO % (test code = 8.5 % 5905-5) EOS % (test code = 0.5 % 713-8) BASO % (test code = 0.3 % 706-2) GRAN MAT x10^3(ANC) 10.80 10*3/uL 1.99-6.95 H (test code = 8899804836) IMM GRAN x10^3 (test 0.08 10*3/uL 0.00-0.06 H code = 9347557985) LYMPH x10^3 (test code 1.00 10*3/uL 1.09-3.23 L = 731-0) MONO x10^3 (test code 1.11 10*3/uL 0.36-1.02 H = 742-7) EOS x10^3 (test code = 0.07 10*3/uL 0.06-0.53 711-2) BASO x10^3 (test code 0.04 10*3/uL 0.01-0.09 = 704-7) Lab Interpretation Abnormal (test code = 94266-2) [facility]. METABOLIC PANEL (74263)2022-11-22 19:59:50 Test Item Value Reference Range Interpretation Comments NA (test code = 140 mmol/L 135-145 4858505584) K (test code = 4.0 mmol/L 3.5-5.0 3426631132) CL (test code = 104 mmol/L 98-108 4252432670) CO2 TOTAL (test code = 27 mmol/L 23-31 6512457269) AGAP (test code = 9 2-16 9489155384) BUN (test code = 4 mg/dL 7-23 L 8026226594) GLUCOSE (test code = 94 mg/dL 70-110 8623977073) CREATININE (test code = 0.51 mg/dL 0.60-1.25 L 1934988499) TOTAL BILI (test code = 0.7 mg/dL 0.1-1.1 1021599947) CALCIUM (test code = 9.3 mg/dL 8.6-10.6 3635273572) T PROTEIN (test code = 7.5 g/dL 6.3-8.2 7707406246) ALBUMIN (test code = 4.3 g/dL 3.5-5.0 6424386895) ALK PHOS (test code = 113 U/L 34-122 2084441894) ALTv (test code = 21 U/L 5-50 1742-6) AST(SGOT) (test code = 30 U/L 13-40 2808337548) eGFR (test code = 170.7 mL/min/1.73m2 4968935845) BERYL (test code = BERYL) Association of [...] tests). Lab Interpretation Abnormal (test code = 33117-7) [facility] 19:59:29 Test Item Value Reference Range Interpretation Comments LIPASE (test code = 5880970081) 475 U/L 0-220 H Lab Interpretation (test code = Abnormal 68823-0) [facility] WITH [id number] 19:49:43 Test Item Value Reference Range Interpretation Comments WBC (test code = 8.68 See_Comment [Automated 8625-2) message] The sy stem which generated this result transmitted reference range : 4.20 - 10.70 10*3/?L. The reference range was not used to interpret this result as normal/abnormal . RBC (test code = 5.46 See_Comment [Automated 298-8) message] The sy stem which generated this result transmitted reference range : 4.26 - 5.52 10*6/?L. The reference range was not used to interpret this result as normal/abnormal . HGB (test code = 17.8 g/dL 12.2-16.4 H 718-7) HCT (test code = 52.3 % 38.4-49.3 H 4544-3) MCV (test code = 95.8 fL 81.7-95.6 H 787-2) MCH (test code = 32.6 pg 26.1-32.7 785-6) MCHC (test code = 34.0 g/dL 31.2-35.0 786-4) RDW-SD (test code = 52.1 fL 38.5-51.6 H 89252-4) RDW-CV (test code = 15.0 % 12.1-15.4 788-0) PLT (test code = 269 See_Comment [Automated 077-3) message] The sy stem which generated this result transmitted reference range : 150 - 328 10*3/ ?L. The reference r kevin was not used to interpret this result as normal/abnormal . MPV (test code = 9.6 fL 9.8-13.0 L 84638-9) NRBC/100 WBC (test 0.0 See_Comment [Automat ed code = 2424617565) message] The system which generated this result transmitted reference range : 0.0 - 10.0 /100 WBCs. The refer ence range was not u sed to interpret th is result as normal/abnormal . NRBC x10^3 (test code See_Comment [Auto mated = 2204213211) message] The s ystem which generated this result transmitted reference range : 10*3/?L. The reference range was not used to interpret this result as normal/abnormal . GRAN MAT (NEUT) % 75.7 % (test code = 770-8) IMM GRAN % (test code 0.50 % = 8290214298) LYMPH % (test code = 12.6 % 736-9) MONO % (test code = 9.8 % 5905-5) EOS % (test code = 0.8 % 713-8) BASO % (test code = 0.6 % 706-2) GRAN MAT x10^3(ANC) 6.58 10*3/uL 1.99-6.95 (test code = 9622361396) IMM GRAN x10^3 (test 0.04 10*3/uL 0.00-0.06 code = 3646862815) LYMPH x10^3 (test code 1.09 10*3/uL 1.09-3.23 = 731-0) MONO x10^3 (test code 0.85 10*3/uL 0.36-1.02 = 742-7) EOS x10^3 (test code = 0.07 10*3/uL 0.06-0.53 711-2) BASO x10^3 (test code 0.05 10*3/uL 0.01-0.09 = 704-7) Lab Interpretation Abnormal (test code = 30834-9) [facility] METABOLIC PANEL (NA, K, CL, CO2, GLUCOSE, BUN, CREATININE, CA)2022-11-14 11:22:12 Test Item Value Reference Range Interpretation Comments NA (test code = 141 mmol/L 135-145 7617407336) K (test code = 3.9 mmol/L 3.5-5.0 1016053841) CL (test code = 108 mmol/L 98-108 7037095598) CO2 TOTAL (test code = 28 mmol/L 23-31 9717599638) AGAP (test code = 5 2-16 5920327318) BUN (test code = 4 mg/dL 7-23 L 9608082152) GLUCOSE (test code = 75 mg/dL 70-110 1539618097) CREATININE (test code = 0.48 mg/dL 0.60-1.25 L 1201873270) CALCIUM (test code = 7.2 mg/dL 8.6-10.6 L 6484119544) eGFR (test code = 183.0 mL/min/1.73m2 0704592138) BERYL (test code = BERYL) Association of [...] tests). Lab Interpretation Abnormal (test code = 90366-1) [facility] (73680[facility] (ALB,T.PRO,BILI T,BU/BC,ALT,AST,ALK PHOS)2022-11-13 02:14:41 Test Item Value Reference Range Interpretation Comments TOTAL BILI (test code = 3967803538) 0.5 mg/dL 0.1-1.1 BILI UNCON (test code = 8354761960) 0.3 mg/dL 0.1-1.1 BILI CONJ (test code = 6704217873) 0.0 mg/dL 0.0-0.3 T PROTEIN (test code = 7866891794) 6.9 g/dL 6.3-8.2 ALBUMIN (test code = 9070641599) 3.9 g/dL 3.5-5.0 ALK PHOS (test code = 8896984096) 98 U/L 34-122 ALTv (test code = 1742-6) 17 U/L 5-50 AST(SGOT) (test code = 8198329895) 16 U/L 13-40 Lab Interpretation (test code = Normal 76361-8) [facility] 02:14:41 Test Item Value Reference Range Interpretation Comments LIPASE (test code = 4480531950) 824 U/L 0-220 H Lab Interpretation (test code = Abnormal 61669-0) [facility] (NA, K, CL, CO2, GLUCOSE, BUN, CREATININE, CA)2022-11-13 02:14:21 Test Item Value Reference Range Interpretation Comments NA (test code = 141 mmol/L 135-145 2002136409) K (test code = 3.4 mmol/L 3.5-5.0 L 8807740564) CL (test code = 104 mmol/L 98-108 4839719112) CO2 TOTAL (test code = 24 mmol/L 23-31 7132322787) AGAP (test code = 13 2-16 0607943589) BUN (test code = 5 mg/dL 7-23 L 6479920600) GLUCOSE (test code = 100 mg/dL 70-110 9771049750) CREATININE (test code = 0.54 mg/dL 0.60-1.25 L 9516374303) CALCIUM (test code = 8.7 mg/dL 8.6-10.6 2872589317) eGFR (test code = 159.8 mL/min/1.73m2 5392120955) BERYL (test code = BERYL) Association of [...] tests). Lab Interpretation Abnormal (test code = 61424-6) [facility] WITH [id number] 02:02:59 Test Item Value Reference Range Interpretation Comments WBC (test code = 7.83 See_Comment [Automated 1368-2) message] The sy stem which generated this result transmitted reference range : 4.20 - 10.70 10*3/?L. The reference range was not used to interpret this result as normal/abnormal . RBC (test code = 4.80 See_Comment [Automated 334-8) message] The sy stem which generated this result transmitted reference range : 4.26 - 5.52 10*6/?L. The reference range was not used to interpret this result as normal/abnormal . HGB (test code = 15.7 g/dL 12.2-16.4 718-7) HCT (test code = 46.9 % 38.4-49.3 4544-3) MCV (test code = 97.7 fL 81.7-95.6 H 787-2) MCH (test code = 32.7 pg 26.1-32.7 785-6) MCHC (test code = 33.5 g/dL 31.2-35.0 786-4) RDW-SD (test code = 52.8 fL 38.5-51.6 H 55782-0) RDW-CV (test code = 14.6 % 12.1-15.4 788-0) PLT (test code = 243 See_Comment [Automated 777-3) message] The sy stem which generated this result transmitted reference range : 150 - 328 10*3/ ?L. The reference r kevin was not used to interpret this result as normal/abnormal . MPV (test code = 10.1 fL 9.8-13.0 52609-2) NRBC/100 WBC (test 0.0 See_Comment [Automat ed code = 6826504045) message] The system which generated this result transmitted reference range : 0.0 - 10.0 /100 WBCs. The refer ence range was not u sed to interpret th is result as normal/abnormal . NRBC x10^3 (test code See_Comment [Auto mated = 8378533797) message] The s ystem which generated this result transmitted reference range : 10*3/?L. The reference range was not used to interpret this result as normal/abnormal . GRAN MAT (NEUT) % 72.2 % (test code = 770-8) IMM GRAN % (test code 0.90 % = 2004806034) LYMPH % (test code = 14.7 % 736-9) MONO % (test code = 10.0 % 5905-5) EOS % (test code = 1.4 % 713-8) BASO % (test code = 0.8 % 706-2) GRAN MAT x10^3(ANC) 5.66 10*3/uL 1.99-6.95 (test code = 0860433801) IMM GRAN x10^3 (test 0.07 10*3/uL 0.00-0.06 H code = 8806119768) LYMPH x10^3 (test code 1.15 10*3/uL 1.09-3.23 = 731-0) MONO x10^3 (test code 0.78 10*3/uL 0.36-1.02 = 742-7) EOS x10^3 (test code = 0.11 10*3/uL 0.06-0.53 711-2) BASO x10^3 (test code 0.06 10*3/uL 0.01-0.09 = 704-7) Lab Interpretation Abnormal (test code = 20821-8) [facility]way[facility] [id number] 16:09:41 Test Item Value Reference Range Interpretation Comments TROPONIN I (test code = 0.013 ng/mL <=0.034 0989468977) BERYL (test code = BERYL) Reference (Normal) Range (defined by the 99th percentile reference [...] biotin. Lab Interpretation Normal (test code = 74665-9) [facility]wayETHANOL2023-08-06 22:48:51 ALCOHOL<10mg/dL11/04/2022 5:48 PM [facility]10 Dwoeisfd72-901 Toxic>100 Depression of [employer]>400 Fatalities ReportedUnPampa [facility] Medical CenterCOMP. METABOLIC PANEL (22437) 2022-11-04 18:25:59 Test Item Value Reference Range Interpretation Comments NA (test code = 135 mmol/L 135-145 4130105826) K (test code = 4.2 mmol/L 3.5-5.0 9415795994) CL (test code = 100 mmol/L 98-108 8954573250) CO2 TOTAL (test code = 26 mmol/L 23-31 8968744402) AGAP (test code = 9 2-16 7556641232) BUN (test code = 8 mg/dL 7-23 5511178103) GLUCOSE (test code = 126 mg/dL 70-110 H 3827562394) CREATININE (test code = 0.49 mg/dL 0.60-1.25 L 7957096221) TOTAL BILI (test code = 1.1 mg/dL 0.1-1.2 3094819975) CALCIUM (test code = 9.1 mg/dL 8.6-10.6 9782990599) T PROTEIN (test code = 7.6 g/dL 6.3-8.2 0337959859) ALBUMIN (test code = 4.1 g/dL 3.5-5.0 9170497149) ALK PHOS (test code = 113 U/L 34-122 4524043617) ALTv (test code = 21 U/L 5-50 1742-6) AST(SGOT) (test code = 41 U/L 13-40 H 2243558772) eGFR (test code = 178.7 mL/min/1.73m2 1648078076) BERYL (test code = BERYL) Association of [...] tests). Lab Interpretation Abnormal (test code = 46797-8) [facility] 18:25:18 Test Item Value Reference Range Interpretation Comments LIPASE (test code = 3618765823) 754 U/L 0-220 H Lab Interpretation (test code = Abnormal 40747-6) [facility] WITH [id number] 18:11:59 Test Item Value Reference Range Interpretation Comments WBC (test code = 10.86 See_Comment H [Automated 6690-2) message] The sy stem which generated this result transmitted reference range : 4.20 - 10.70 10*3/?L. The reference range was not used to interpret this result as normal/abnormal . RBC (test code = 5.22 See_Comment [Automated 659-8) message] The sy stem which generated this result transmitted reference range : 4.26 - 5.52 10*6/?L. The reference range was not used to interpret this result as normal/abnormal . HGB (test code = 17.2 g/dL 12.2-16.4 H 718-7) HCT (test code = 50.9 % 38.4-49.3 H 4544-3) MCV (test code = 97.5 fL 81.7-95.6 H 787-2) MCH (test code = 33.0 pg 26.1-32.7 H 785-6) MCHC (test code = 33.8 g/dL 31.2-35.0 786-4) RDW-SD (test code = 52.0 fL 38.5-51.6 H 27641-0) RDW-CV (test code = 14.9 % 12.1-15.4 788-0) PLT (test code = 256 See_Comment [Automated 297-3) message] The sy stem which generated this result transmitted reference range : 150 - 328 10*3/ ?L. The reference r kevin was not used to interpret this result as normal/abnormal . MPV (test code = 9.4 fL 9.8-13.0 L 64418-3) NRBC/100 WBC (test 0.0 See_Comment [Automat ed code = 6287725095) message] The system which generated this result transmitted reference range : 0.0 - 10.0 /100 WBCs. The refer ence range was not u sed to interpret th is result as normal/abnormal . NRBC x10^3 (test code See_Comment [Auto mated = 0599290930) message] The s ystem which generated this result transmitted reference range : 10*3/?L. The reference range was not used to interpret this result as normal/abnormal . GRAN MAT (NEUT) % 83.0 % (test code = 770-8) IMM GRAN % (test code 0.70 % = 5128046926) LYMPH % (test code = 8.0 % 736-9) MONO % (test code = 7.6 % 5905-5) EOS % (test code = 0.3 % 713-8) BASO % (test code = 0.4 % 706-2) GRAN MAT x10^3(ANC) 9.01 10*3/uL 1.99-6.95 H (test code = 9121134484) IMM GRAN x10^3 (test 0.08 10*3/uL 0.00-0.06 H code = 0233784972) LYMPH x10^3 (test code 0.87 10*3/uL 1.09-3.23 L = 731-0) MONO x10^3 (test code 0.83 10*3/uL 0.36-1.02 = 742-7) EOS x10^3 (test code = 0.03 10*3/uL 0.06-0.53 L 711-2) BASO x10^3 (test code 0.04 10*3/uL 0.01-0.09 = 704-7) Lab Interpretation Abnormal (test code = 26823-8) [facility] WITH [id number] 22:44:37 Test Item Value Reference Range Interpretation Comments WBC (test code = 10.83 See_Comment H [Automated 6690-2) message] The sy stem which generated this result transmitted reference range : 4.20 - 10.70 10*3/?L. The reference range was not used to interpret this result as normal/abnormal . RBC (test code = 5.03 See_Comment [Automated 789-8) message] The sy stem which generated this result transmitted reference range : 4.26 - 5.52 10*6/?L. The reference range was not used to interpret this result as normal/abnormal . HGB (test code = 16.3 g/dL 12.2-16.4 718-7) HCT (test code = 48.3 % 38.4-49.3 4544-3) MCV (test code = 96.0 fL 81.7-95.6 H 787-2) MCH (test code = 32.4 pg 26.1-32.7 785-6) MCHC (test code = 33.7 g/dL 31.2-35.0 786-4) RDW-SD (test code = 53.2 fL 38.5-51.6 H 29763-7) RDW-CV (test code = 15.3 % 12.1-15.4 788-0) PLT (test code = 293 See_Comment [Automated 777-3) message] The sy stem which generated this result transmitted reference range : 150 - 328 10*3/ ?L. The reference r kevin was not used to interpret this result as normal/abnormal . MPV (test code = 9.4 fL 9.8-13.0 L 78362-3) NRBC/100 WBC (test 0.0 See_Comment [Automat ed code = 7783929705) message] The system which generated this result transmitted reference range : 0.0 - 10.0 /100 WBCs. The refer ence range was not u sed to interpret th is result as normal/abnormal . NRBC x10^3 (test code See_Comment [Auto mated = 1000463107) message] The s ystem which generated this result transmitted reference range : 10*3/?L. The reference range was not used to interpret this result as normal/abnormal . GRAN MAT (NEUT) % 70.5 % (test code = 770-8) IMM GRAN % (test code 1.40 % = 5188532456) LYMPH % (test code = 16.8 % 736-9) MONO % (test code = 9.1 % 5905-5) EOS % (test code = 1.6 % 713-8) BASO % (test code = 0.6 % 706-2) GRAN MAT x10^3(ANC) 7.63 10*3/uL 1.99-6.95 H (test code = 1350904676) IMM GRAN x10^3 (test 0.15 10*3/uL 0.00-0.06 H code = 1253515390) LYMPH x10^3 (test code 1.82 10*3/uL 1.09-3.23 = 731-0) MONO x10^3 (test code 0.99 10*3/uL 0.36-1.02 = 742-7) EOS x10^3 (test code = 0.17 10*3/uL 0.06-0.53 711-2) BASO x10^3 (test code 0.07 10*3/uL 0.01-0.09 = 704-7) Lab Interpretation Abnormal (test code = 43140-8) [facility] WITH [id number] 22:44:37 Test Item Value Reference Range Interpretation Comments WBC (test code = 10.83 See_Comment H [Automated 7590-2) message] The sy stem which generated this result transmitted reference range : 4.20 - 10.70 10*3/?L. The reference range was not used to interpret this result as normal/abnormal . RBC (test code = 5.03 See_Comment [Automated 909-8) message] The sy stem which generated this result transmitted reference range : 4.26 - 5.52 10*6/?L. The reference range was not used to interpret this result as normal/abnormal . HGB (test code = 16.3 g/dL 12.2-16.4 718-7) HCT (test code = 48.3 % 38.4-49.3 4544-3) MCV (test code = 96.0 fL 81.7-95.6 H 787-2) MCH (test code = 32.4 pg 26.1-32.7 785-6) MCHC (test code = 33.7 g/dL 31.2-35.0 786-4) RDW-SD (test code = 53.2 fL 38.5-51.6 H 95546-7) RDW-CV (test code = 15.3 % 12.1-15.4 788-0) PLT (test code = 293 See_Comment [Automated 777-3) message] The sy stem which generated this result transmitted reference range : 150 - 328 10*3/ ?L. The reference r kevin was not used to interpret this result as normal/abnormal . MPV (test code = 9.4 fL 9.8-13.0 L 02364-4) NRBC/100 WBC (test 0.0 See_Comment [Automat ed code = 5828969246) message] The system which generated this result transmitted reference range : 0.0 - 10.0 /100 WBCs. The refer ence range was not u sed to interpret th is result as normal/abnormal . NRBC x10^3 (test code See_Comment [Auto mated = 3117401878) message] The s ystem which generated this result transmitted reference range : 10*3/?L. The reference range was not used to interpret this result as normal/abnormal . GRAN MAT (NEUT) % 70.5 % (test code = 770-8) IMM GRAN % (test code 1.40 % = 2612859911) LYMPH % (test code = 16.8 % 736-9) MONO % (test code = 9.1 % 5905-5) EOS % (test code = 1.6 % 713-8) BASO % (test code = 0.6 % 706-2) GRAN MAT x10^3(ANC) 7.63 10*3/uL 1.99-6.95 H (test code = 1122105212) IMM GRAN x10^3 (test 0.15 10*3/uL 0.00-0.06 H code = 2449298112) LYMPH x10^3 (test code 1.82 10*3/uL 1.09-3.23 = 731-0) MONO x10^3 (test code 0.99 10*3/uL 0.36-1.02 = 742-7) EOS x10^3 (test code = 0.17 10*3/uL 0.06-0.53 711-2) BASO x10^3 (test code 0.07 10*3/uL 0.01-0.09 = 704-7) Lab Interpretation Abnormal (test code = 89648-5) [facility] 07:31:00 Test Item Value Reference Range Interpretation Comments CREATININE (BEAKER) 0.63 mg/dL 0.57-1.25 (test code = 358) EGFR (BEAKER) (test 136 mL/min/1.73 ESTIM ATED GFR IS code = 1092) sq m NOT ACCURATE CREATININE CLEARANCE IN PREDICTING GLOMERULAR FILTRATION RATE . ESTIMATED GFR I S NOT APPLICABLE FOR DIALYSIS PATIEN TS. WOUND CULTURE + GRAM [id number] 16:32:00 Test Item Value Reference Range Interpretation Comments CULTURE (BEAKER) (test No growth code = 1095) GRAM STAIN RESULT 2+ WBCs (BEAKER) (test code = 1123) GRAM STAIN RESULT 1+ gram positive cocci (BEAKER) (test code = in pairs 81099) GRAM STAIN RESULT <1+ gram variable rods (BEAKER) (test code = 01264) VANCOMYCIN LEVEL, [id number] 23:37:00 Test Item Value Reference Range Interpretation Comments VANCOMYCIN TROUGH (BEAKER) (test 7.5 ug/mL 10.0-20.0 L code = 522) FL, ESOPH, SWALLOW FUNCTION, WITH CINE OR [id number] 18:19:00Cervical esophagram with GASTROGAFFINReason for exam:->status post larygnectomyFINAL REPORT Esophagram. HISTORY: Status post laryngectomy. COMPARISON STUDY: June 17, 2018. FINDINGS: A single contrast Gastrografin esophagram was performed. Post surgical changes are seen related to laryngectomy. The swallowing mechanism is normal with no evidence of aspiration seen. No evidence of extraluminal contrast extravasation is seen. No stricture is identified. Thereis no significant esophageal dysmotility. IMPRESSION:1. Status post laryngectomy with no evidence ofextraluminal contrast extravasation. Fluoroscopy time: 0.65 minutes. 46 images. Signed: Gaudencio Beltraneport Verified Date/Time: 08/12/2018 18:19:29 Reading Location: [facility] [id number] Ortho Consult Reading Room CBC W/PLT COUNT & AUTO [id number] 04:39:00 Test Item Value Reference Range Interpretation [...] (test code = 2801) TSH/FREE T4 IF [id number] 18:11:00 Test Item Value Reference Range Interpretation Comments THYROID STIMULATING HORMONE 0.75 uIU/mL 0.35-4.94 (BEAKER) (test code = 772) CBC W/PLT COUNT & AUTO [id number] 17:31:00 Test Item Value Reference Range Interpretation [...] PERCENT (BEAKER) (test code = 2801) TISSUE [id number] 10:26:00Surgical Pathology Report Case: [id number] Authorizing Provider: Jennifer Fraire MD Collected: 07/14/2018 1023 Ordering Location: [facility] Received: 07/14/2018 1029 SERVICES Pathologist: Jackie [...] NO EVIDENCE OF MALIGNANCYB. LYMPH NODE, LEVEL 1A, SIDE UNSTATED, DISSECTION: [...] AND LEFT LATERAL SOFT TISSUE, AND ANTERIOR SOFTTISSUE) ALL NEGATIVE FOR CARCINOMA - SMALL PORTION OF THYROID TISSUE, NEGATIVE FOR CARCINOMAD. LYMPHNODE, LEFT LEVEL 2, DISSECTION: - TWO BENIGN LYMPH NODES (0/2) Signing Pathologist Direct Phone Line: [phone] signed by Jackie Hardy MD on 07/25/2018 at 10:26 AMThere is a detached piece of necrotic atypical squamous cells (section C18) involving left vocal cord. The focus measures 0.2 cm in greatest dimension. Underlying tissue shows ulceration and granulation tissue.LARYNX (SUPRAGLOTTIS, GLOTTIS, SUBGLOTTIS) (Larynx - All Specimens)SPECIMEN Procedure: Total laryngectomy TUMOR Tumor Site: Not specified Transglottic Extension: Not identified Tumor Laterality: Not specified Histologi c Type: no residual carcinoma Histologic Grade: Not applicable Tumor Focality: Cannot be determined:no residual carcinoma Tumor Size: Cannot be determined: [...] carcinoma Status of Non-Invasive Tumor at Margins: Uninvolvedby high grade dysplasia / in situ disease [...] Regional Lymph Nodes (pN): pN0 Distant Metastasis (pM):Not applicable - pM cannot be determined from the submitted specimen(s) 25372 X3, 59034, 43213, 53711 X2, 93494 X 4, 70892 x1, 93382 u631-byrr-esr 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 The specimen is received fresh for intraoperative consultation labeled with patient's name "CHELI", medical record number, and "rule out left superior parathyroid." It consists of a piece of paige- pink tissue measuring 0.4 x 0.3 x 0.2 cm. A touch preparation slide is made.The specimen is entirely embedded as FSA1 for frozen section diagnosis.B. The specimen is received in formalin labeled with patient's name "CHELI", medical record number, and "neck dissection level 1A."It consists of a piece of fibroadipose tissue [...] cm superior to inferior, 5.5 cm to medial to lateral, 5.0 cm to anterior to posterior) including hyoid bone, anterior strap muscle, and a rim of skin of previous tracheostomy (3.0 x 2.5 cm). The overall orientation of the specimen is explained by the surgeon. Margins requested by the surgeon are taken and embedded as follows forfrozen section diagnosis: FSC1 - distal tracheal en face margin; FSC2 - posterior cricoid mucosal margin; FSC3 - right lateral pharyngeal mucosal margin; FSC4 - left lateral pharyngeal mucosal margin; FSC5 - anterior vallecular mucosal margin. The specimen is opened along the posterior wall of larynx,revealing edematous mucosa with a focal whitish discoloration (1.0 x 0.8 cm) around the left vocal cord area. No overt mass lesions are seen. The thyroid cartilage is ossified.After 24-hour formalin fixation and following decalcification, the specimen is serially sectioned longitudinally and reveals no gross mass lesion. Patient Service Technician Pst sections are submitted as follows: C6 - right soft tissue en facemargin; C7 - left soft tissue en face margin; C8 - anterior soft tissue en face margin; C9 and C10 -skin margin of tracheostomy; C11 through C25 - C11 through C13 - longitudinal sections of midline larynx; C14 through C16 and C17 through C19 - longitudinal sections of left larynx; C20 through C22 andC23 through C25 - longitudinal sections of right larynx; C26-C27 and C28-C29 - longitudinal sectionsof far right larynx.D. The specimen is received in formalin labeled with patient's name "HCELI", medical record number, and "left neck dissection level 2." It consists of a piece of fibroadipose tissue measuring 2.5 x 1.5 x 0.6 cm. Serial sectioning reveals no lymph node grossly. The specimen is entirely submitted in cassettes D1 and D2.FSA. SOFT TISSUE, "RULE OUT LEFT SUPERIOR PARATHYROID," EXCISION:- PARATHYROID TISSUE IDENTIFIED - NO EVIDENCE OF MALIGNANCYVERBALLY REPORTED TO DR. FRAIRE BY DR. HARDYAT 10:45 AM ON 07/14/2018.FSC1-5. LARYNX, TOTAL LARYNGECTOMY:RESECTION MARGINS, ANTERIOR VALLECULAR MUCOSAL, RIGHT LATERAL PHARYNGEAL MUCOSAL, LEFT LATERAL PHARYNGEAL MUCOSAL, POSTERIOR CRICOID MUCOSAL,AND TRACHEAL, ALL NEGATIVE FOR CARCINOMAVERBALLY REPORTED TO DR. FRAIRE BY DR. HARDY AT 11:54 AM ON 07/14/2018. C. There is a detached piece of necrotic atypical squamous cells (section C18) in left vocal cord. Underlying tissue shows ulcer and granulation tissue. On C19, [place]-8 positivity confirms portionof thyroid tissue present. On C16, There is ulceration with underlying granulation tissue. Some atypical cells are noted in the soft tissue, favoring atypia related to radiation and chemo. The negativity of the P63 and AE1/AE3 confirms that no residual tumor cells, the atypical cells might be reactivefibroblasts.The interpretation of this case included the use of immunohistochemistry or special stains. Immunohistochemistry technical testing was performed at [facility], Pathology Laboratory where it was developed and its performance characteristics were determined. It has not b een cleared or approved by the U.[place]. Food [...] clinical laboratory testing.CBC W/PLT COUNT & AUTO [id number] 09:34:00 Test Item Value Reference Range Interpretation [...] = 3438) Received comment: User comments: Slide comments:[id number] 05:40:00 Test Item Value Reference Range Interpretation Comments PHOSPHORUS (BEAKER) (test code = 4.8 mg/dL 2.3-4.7 H 604) [id number] 05:40:00 Test Item Value Reference Range Interpretation Comments MAGNESIUM (BEAKER) (test code = 2.1 mg/dL 1.6-2.6 627) BASIC METABOLIC [id number] 05:40:00 Test Item Value Reference Range Interpretation [...] PATIEN TS. CBC W/PLT COUNT & AUTO [id number] 11:50:00 Test Item Value Reference Range Interpretation [...] 0-5 epithelial cells (BEAKER) (test code = 33988) GRAM STAIN RESULT No organisms seen (BEAKER) (test code = 94101) [id number] 06:07:00 Test Item Value Reference Range Interpretation Comments PHOSPHORUS (BEAKER) (test code = 4.6 mg/dL 2.3-4.7 604) [id number] 06:07:00 Test Item Value Reference Range Interpretation Comments MAGNESIUM (BEAKER) (test code = 2.0 mg/dL 1.6-2.6 627) BASIC METABOLIC [id number] 06:07:00 Test Item Value Reference Range Interpretation [...] APPLICABLE FOR DIALYSIS PATIEN TS. VANCOMYCIN LEVEL, [id number] 23:12:00 Test Item Value Reference Range Interpretation Comments VANCOMYCIN TROUGH (BEAKER) (test 3.2 ug/mL 10.0-20.0 L code = 522) POCT-GLUCOSE [id number] 17:57:00 Test Item Value Reference Range Interpretation Comments POC-GLUCOSE METER 105 mg/dL 70-110 TESTED AT [facility] [address] (BEAKER) (test code = ALIYA Ruiz [place] 1538) [address] CBC W/PLT COUNT & AUTO [id number] 13:00:00 Test Item Value Reference Range Interpretation [...] 3438) Received comment: User comments: Slide comments:POCT-GLUCOSE [id number] 12:50:00 Test Item Value Reference Range Interpretation Comments POC-GLUCOSE METER 117 mg/dL 70-110 H TESTED AT [facility] [address] (BEAKER) (test code = AL[place] 1538) [address] [id number] 07:00:00 Test Item Value Reference Range Interpretation Comments PHOSPHORUS (BEAKER) (test code = 4.2 mg/dL 2.3-4.7 604) [id number] 07:00:00 Test Item Value Reference Range Interpretation Comments MAGNESIUM (BEAKER) (test code = 1.9 mg/dL 1.6-2.6 627) BASIC METABOLIC [id number] 07:00:00 Test Item Value Reference Range Interpretation [...] PATIEN TS. CBC W/PLT COUNT & AUTO [id number] 10:11:00 Test Item Value Reference Range Interpretation [...] = 3438) Received comment: User comments: Slide comments:[id number] 05:39:00 Test Item Value Reference Range Interpretation Comments PHOSPHORUS (BEAKER) (test code = 5.1 mg/dL 2.3-4.7 H 604) [id number] 05:39:00 Test Item Value Reference Range Interpretation Comments MAGNESIUM (BEAKER) (test code = 2.0 mg/dL 1.6-2.6 627) BASIC METABOLIC [id number] 05:39:00 Test Item Value Reference Range Interpretation [...] APPLICABLE FOR DIALYSIS PATIEN TS. VANCOMYCIN LEVEL, [id number] 23:38:00 Test Item Value Reference Range Interpretation Comments VANCOMYCIN TROUGH (BEAKER) (test 5.5 ug/mL 10.0-20.0 L code = 522) CBC W/PLT COUNT & AUTO [id number] 10:44:00 Test Item Value Reference Range Interpretation [...] = 3438) Received comment: User comments: Slide comments:[id number] 06:44:00 Test Item Value Reference Range Interpretation Comments MAGNESIUM (BEAKER) 2.1 mg/dL 1.6-2.6 Specimen slightly (test code = 627) hemolyzed [id number] 06:44:00 Test Item Value Reference Range Interpretation Comments PHOSPHORUS (BEAKER) 5.0 mg/dL 2.3-4.7 H Specimen slightly (test code = 604) hemolyzed BASIC METABOLIC [id number] 06:44:00 Test Item Value Reference Range Interpretation [...] S NOT APPLICABLE FOR DIALYSIS PATIEN TS. [id number] 06:06:00 Test Item Value Reference Range Interpretation Comments PROTIME (BEAKER) (test code = 15.6 seconds 11.7-14.7 H 759) INR (BEAKER) (test code = 370) 1.2 <=5.9 PARTIAL THROMBOPLASTIN TIME 46.0 seconds 22.5-36.0 H (BEAKER) (test code = 760) RECOMMENDED COUMADIN/WARFARIN INR THERAPY RANGESSTANDARD DOSE: 2.0 - 3.0 Includes: PROPHYLAXIS for venous thrombosis, systemic embolization; TREATMENT for venous thrombosis and/or pulmonary embolus.HIGH RISK: Target INR is 2.5-3.5 for patients with mechanical heart valves.SPUTUM CULTURE + GRAM [id number] 14:44:00 Test Item Value Reference Range Interpretation Comments CULTURE (BEAKER) Oropharyngeal (test code = 1095) contamination, specimen rejected. Recollect requested. GRAM STAIN RESULT <1+ WBCs (BEAKER) (test code = 1123) GRAM STAIN RESULT >25 epithelial cells (BEAKER) (test code = 00154) GRAM STAIN RESULT <1+ gram positive rods (BEAKER) (test code = 17351) RAD, CHEST, 1 VIEW, NON [id number] 13:59:00Reason for exam:->leukocytosis in setting of recent laryngectomyShould [facility] be performed [facility]?->YesFINAL REPORT INDICATION: leukocytosis in setting of recent laryngectomy COMPARISON:July 17 TECHNIQUE: Chest radiograph, single view, portable technique. FINDINGS / IMPRESSION: No pneumonia is demonstrated. Right base linear opacities represent subsegmental atelectasis. Tracheostomy tube and left low neck dissection noted. No pneumomediastinum or pneumothorax demonstrated. Cardiac and mediastinal contours unremarkable. Signed: Randolph Gaviria MDReport Verified Date/Time: 07/19/2018 13:59:21 Reading Location: [address] Consult Reading Room URINALYSIS W/ REFLEX URINE [id number] 11:14:00 Test Item Value Reference Range Interpretation [...] 514) SOURCE(BEAKER) (test code = 2795) POCT-GLUCOSE [id number] 06:46:00 Test Item Value Reference Range Interpretation Comments POC-GLUCOSE METER 102 mg/dL 70-110 TESTED AT [facility] [address] (BEAKER) (test code = [place] 1538) [address] [id number] 04:52:00 Test Item Value Reference Range Interpretation Comments PHOSPHORUS (BEAKER) (test code = 4.1 mg/dL 2.3-4.7 604) [id number] 04:52:00 Test Item Value Reference Range Interpretation Comments MAGNESIUM (BEAKER) (test code = 1.8 mg/dL 1.6-2.6 627) BASIC METABOLIC [id number] 04:52:00 Test Item Value Reference Range Interpretation [...] PATIEN TS. CBC W/PLT COUNT & AUTO [id number] 04:25:00 Test Item Value Reference Range Interpretation [...] IMMATURE GRANULOCYTES-RELATIVE 3 % 0-1 H PERCENT ([facility]) (test code = 2801) [id number] 04:11:00 Test Item Value Reference Range Interpretation Comments PROTIME ([facility]) (test code = 15.8 seconds 11.7-14.7 H 759) INR ([facility]) (test code = 370) 1.2 <=5.9 PARTIAL THROMBOPLASTIN TIME 48.2 seconds 22.5-36.0 H ([facility]) (test code = 760) RECOMMENDED COUMADIN/WARFARIN INR THERAPY RANGESSTANDARD DOSE: 2.0 - 3.0 Includes: PROPHYLAXIS for venous thrombosis, systemic embolization; TREATMENT for venous thrombosis and/or pulmonary embolus.HIGH RISK: Target INR is 2.5-3.5 for patients with mechanical heart valves.POCT-GLUCOSE [id number] 00:11:00 Test Item Value Reference Range Interpretation Comments POC-GLUCOSE METER 76 mg/dL 70-110 TESTED AT [place] [address] ([facility]) (test code = [facility] [address]38) POCT-GLUCOSE [id number] 17:53:00 Test Item Value Reference Range Interpretation Comments POC-GLUCOSE METER 94 mg/dL 70-110 TESTED AT [place] [address] ([facility]) (test code = [facility] [address] 1538) T4, [id number] 11:41:00 Test Item Value Reference Range Interpretation Comments FREE T4 ([facility]) (test code = 655) 0.90 ng/dL 0.70-1.48 POCT-GLUCOSE [id number] 11:35:00 Test Item Value Reference Range Interpretation Comments POC-GLUCOSE METER 103 mg/dL 70-110 TESTED AT [place] [address] ([facility]) (test code = [facility] 1538) [address] TSH/FREE T4 IF [id number] 10:50:00 Test Item Value Reference Range Interpretation Comments THYROID STIMULATING HORMONE 14.67 uIU/mL 0.35-4.94 H ([facility]) (test code = 772) POCT-GLUCOSE [id number] 06:42:00 Test Item Value Reference Range Interpretation Comments POC-GLUCOSE METER 111 mg/dL 70-110 H TESTED AT [place] [address] (BEAKER) (test code = [place] 1538) [address] CBC W/PLT COUNT & AUTO [id number] 05:20:00 Test Item Value Reference Range Interpretation [...] H PERCENT (BEAKER) (test code = 2801) [id number] 05:00:00 Test Item Value Reference Range Interpretation Comments PHOSPHORUS (BEAKER) (test code = 5.2 mg/dL 2.3-4.7 H 604) [id number] 05:00:00 Test Item Value Reference Range Interpretation Comments MAGNESIUM (BEAKER) (test code = 2.0 mg/dL 1.6-2.6 627) BASIC METABOLIC [id number] 05:00:00 Test Item Value Reference Range Interpretation [...] S NOT APPLICABLE FOR DIALYSIS PATIEN TS. [id number] 04:55:00 Test Item Value Reference Range Interpretation Comments PROTIME (BEAKER) (test code = 15.2 seconds 11.7-14.7 H 759) INR (BEAKER) (test code = 370) 1.2 <=5.9 PARTIAL THROMBOPLASTIN TIME 38.9 seconds 22.5-36.0 H (BEAKER) (test code = 760) RECOMMENDED COUMADIN/WARFARIN INR THERAPY RANGESSTANDARD DOSE: 2.0 - 3.0 Includes: PROPHYLAXIS for venous thrombosis, systemic embolization; TREATMENT for venous thrombosis and/or pulmonary embolus.HIGH RISK: Target INR is 2.5-3.5 for patients with mechanical heart valves.CBC W/PLT COUNT & AUTO [id number] 08:47:00 Test Item Value Reference Range Interpretation [...] 3438) Received comment: User comments: Slide comments:POCT-GLUCOSE [id number] 06:41:00 Test Item Value Reference Range Interpretation Comments POC-GLUCOSE METER 115 mg/dL 70-110 H TESTED AT [facility] [address] (BEAKER) (test code = [place] 1538) [address] BASIC METABOLIC [id number] 04:53:00 Test Item Value Reference Range Interpretation [...] S NOT APPLICABLE FOR DIALYSIS PATIEN TS. [id number] 04:37:00 Test Item Value Reference Range Interpretation Comments PHOSPHORUS (BEAKER) (test code = 3.9 mg/dL 2.3-4.7 604) [id number] 04:37:00 Test Item Value Reference Range Interpretation Comments MAGNESIUM (BEAKER) (test code = 1.6 mg/dL 1.6-2.6 627) [id number] 04:37:00 Test Item Value Reference Range Interpretation Comments ALBUMIN (BEAKER) (test code = 1145) 3.2 g/dL 3.5-5.0 L [id number] 04:24:00 Test Item Value Reference Range Interpretation Comments PROTIME (BEAKER) (test code = 15.9 seconds 11.7-14.7 H 759) INR (BEAKER) (test code = 370) 1.2 <=5.9 PARTIAL THROMBOPLASTIN TIME 51.7 seconds 22.5-36.0 H (BEAKER) (test code = 760) RECOMMENDED COUMADIN/WARFARIN INR THERAPY RANGESSTANDARD DOSE: 2.0 - 3.0 Includes: PROPHYLAXIS for venous thrombosis, systemic embolization; TREATMENT for venous thrombosis and/or pulmonary embolus.HIGH RISK: Target INR is 2.5-3.5 for patients with mechanical heart valves.RAD, CHEST, 1 VIEW, NON [id number] 03:56:00Reason for exam:->atelectasisShould this be performed at the bedside?->YesFINAL REPORT CLINICAL INDICATION: Support lines. Comparison: 07/16/2018 The cardiomediastinal contours are stable. The lung volumes remain low. Bibasilar parenchymal and pleural opacities are similar to previous. There is no pneumothorax. A tracheostomy tube is stable in position. A pigtail catheter overlies the left upper quadrant, probably a G-tube. Signed: Mayra Garcia MDReport Verified Date/Time: 07/17/2018 03:56:49 Reading Location: [address] Reading Room POCT-GLUCOSE [id number] 00:56:00 Test Item Value Reference Range Interpretation Comments POC-GLUCOSE METER 115 mg/dL 70-110 H TESTED AT [place] [address] ([facility]) (test code = [facility] 1538) [address] POCT-GLUCOSE [id number] 18:10:00 Test Item Value Reference Range Interpretation Comments POC-GLUCOSE METER 116 mg/dL 70-110 H TESTED AT [place] [address] ([facility]) (test code = [facility] 1538) [address] POCT-GLUCOSE [id number] 13:10:00 Test Item Value Reference Range Interpretation Comments POC-GLUCOSE METER 115 mg/dL 70-110 H TESTED AT [place] [address] ([facility]) (test code = [facility] 1538) [address] RAD, CHEST, 1 VIEW, NON [id number] 08:20:00Reason for exam:- >atelectasisShould this be performed [...] Gaudencio Beltran MDReport Verified Date/Time: 07/16/2018 08:20:57 Reading Location: [facility] [address] [facility] Reading Room [id number] 08:03:00 Test Item Value Reference Range Interpretation [...] acute neurological disease, and persistent tachyarrhythmia.BLOOD GAS, [id number] 07:42:00 Test Item Value Reference Range Interpretation [...] (test code = 1819) 44.0 % POCT-GLUCOSE [id number] 06:03:00 Test Item Value Reference Range Interpretation Comments POC-GLUCOSE METER 120 mg/dL 70-110 H TESTED AT [facility] [address] (BEAKER) (test code = AL[place] 1538) [address] CBC W/PLT COUNT & AUTO [id number] 04:00:00 Test Item Value Reference Range Interpretation [...] 0-1 PERCENT (BEAKER) (test code = 2801) [id number] 03:38:00 Test Item Value Reference Range Interpretation Comments MAGNESIUM (BEAKER) 2.0 mg/dL 1.6-2.6 Specimen slightly (test code = 627) hemolyzed [id number] 03:38:00 Test Item Value Reference Range Interpretation Comments PHOSPHORUS (BEAKER) 3.6 mg/dL 2.3-4.7 Specimen slightly (test code = 604) hemolyzed BASIC METABOLIC [id number] 03:38:00 Test Item Value Reference Range Interpretation [...] S NOT APPLICABLE FOR DIALYSIS PATIEN TS. [id number] 03:38:00 Test Item Value Reference Range Interpretation Comments ALBUMIN (BEAKER) (test 3.9 g/dL 3.5-5.0 Speci men slightly code = 1145) hemolyzed [id number] 03:31:00 Test Item Value Reference Range Interpretation Comments PROTIME (BEAKER) (test code = 15.5 seconds 11.7-14.7 H 759) INR (BEAKER) (test code = 370) 1.2 <=5.9 PARTIAL THROMBOPLASTIN TIME 34.5 seconds 22.5-36.0 (BEAKER) (test code = 760) RECOMMENDED COUMADIN/WARFARIN INR THERAPY RANGESSTANDARD DOSE: 2.0 - 3.0 Includes: PROPHYLAXIS for venous thrombosis, systemic embolization; TREATMENT for venous thrombosis and/or pulmonary embolus.HIGH RISK: Target INR is 2.5-3.5 for patients with mechanical heart valves.POCT-GLUCOSE [id number] 23:39:00 Test Item Value Reference Range Interpretation Comments POC-GLUCOSE METER 121 mg/dL 70-110 H TESTED AT [place] [address] ([facility]) (test code = ALIYA Ruiz [facility] 1538) [address] POCT-GLUCOSE [id number] 18:25:00 Test Item Value Reference Range Interpretation Comments POC-GLUCOSE METER 112 mg/dL 70-110 H TESTED AT [place] [address] ([facility]) (test code = ALIYA Ruiz [facility] 1538) [address] T4, [id number] 12:56:00 Test Item Value Reference Range Interpretation Comments FREE T4 ([facility]) (test code = 655) 1.17 ng/dL 0.70-1.48 POCT-GLUCOSE [id number] 11:35:00 Test Item Value Reference Range Interpretation Comments POC-GLUCOSE METER 143 mg/dL 70-110 H TESTED AT [place] [address] ([facility]) (test code = ALIYA Ruiz [facility] 1538) [address] CBC W/PLT COUNT & AUTO [id number] 07:50:00 Test Item Value Reference Range Interpretation [...] 1 VIEW, NON DEPT INDICATION: postop laryngectomy withtrach COMPARISON: July 10, 2018 FINDINGS: Portable frontal view of the chest. IMPRESSION: Support Lines: Tracheostomy. Stent projects over the left upper quadrant. Lungs and pleura: Right lower lobe airspace disease, favored to represent atelectasis although infection should be excluded clinically. Tiny right effusion cannot be excluded. No pneumothorax.Heart and mediastinum: Stable contours. Additional findings: None. Signed: Lui Wigginseport Verified Date/Time: 07/15/2018 05:48:22 ReadingLocation: [facility] B1 C013V Neuro Reading Room POCT-GLUCOSE METER 2018-07-15 05:47:00 Test Item Value Reference Range Interpretation Comments POC-GLUCOSE METER 177 mg/dL 70-110 H TESTED AT [facility] [address] (BEAKER) (test code = ALI[place] Ru[place] 1538) [address] [id number] 04:29:00 Test Item Value Reference Range Interpretation Comments PHOSPHORUS (BEAKER) (test code = 2.3 mg/dL 2.3-4.7 604) [id number] 04:29:00 Test Item Value Reference Range Interpretation Comments MAGNESIUM (BEAKER) (test code = 1.7 mg/dL 1.6-2.6 627) BASIC METABOLIC [id number] 04:29:00 Test Item Value Reference Range Interpretation [...] S NOT APPLICABLE FOR DIALYSIS PATIEN TS. [id number] 04:29:00 Test Item Value Reference Range Interpretation Comments ALBUMIN (BEAKER) (test code = 1145) 3.8 g/dL 3.5-5.0 [id number] 04:22:00 Test Item Value Reference Range Interpretation Comments PROTIME (BEAKER) (test code = 14.5 seconds 11.7-14.7 759) INR (BEAKER) (test code = 370) 1.1 <=5.9 PARTIAL THROMBOPLASTIN TIME 42.0 seconds 22.5-36.0 H (BEAKER) (test code = 760) RECOMMENDED COUMADIN/WARFARIN INR THERAPY RANGESSTANDARD DOSE: 2.0 - 3.0 Includes: PROPHYLAXIS for venous thrombosis, systemic embolization; TREATMENT for venous thrombosis and/or pulmonary embolus.HIGH RISK: Target INR is 2.5-3.5 for patients with mechanical heart valves.POCT-GLUCOSE [id number] 23:55:00 Test Item Value Reference Range Interpretation Comments POC-GLUCOSE METER 159 mg/dL 70-110 H TESTED AT [facility] [address] (BEAKER) (test code = [place] 1538) [address] [id number] 19:41:00 Test Item Value Reference Range Interpretation Comments THYROID STIMULATING HORMONE 6.82 uIU/mL 0.35-4.94 H (BEAKER) (test code = 772) [id number] 19:26:00 Test Item Value Reference Range Interpretation Comments PHOSPHORUS (BEAKER) (test code = 4.9 mg/dL 2.3-4.7 H 604) Postop labsPostop labsPostop labsPostop [id number] 19:26:00 Test Item Value Reference Range Interpretation Comments MAGNESIUM (BEAKER) (test code = 1.9 mg/dL 1.6-2.6 627) Postop labsPostop labsPostop labsPostop labsBASIC METABOLIC [id number] 19:26:00 Test Item Value Reference Range Interpretation [...] DIALYSIS PATIEN TS. Postop labsPostop labsPostop labsPostop [id number] 19:26:00 Test Item Value Reference Range Interpretation Comments ALBUMIN (BEAKER) (test code = 1145) 3.9 g/dL 3.5-5.0 Postop labsPostop labsPostop labsPostop [id number] 19:24:00 Test Item Value Reference Range Interpretation Comments PREALBUMIN (BEAKER) 17 mg/dL 14-45 Specimen slightly (test code = 586) hemolyzed PTH, [id number] 19:23:00 Test Item Value Reference Range Interpretation Comments PARATHYROID HORMONE INTACT 16.1 pg/mL 8.5-72.5 (BEAKER) (test code = 577) Postop LabsCBC W/PLT COUNT & AUTO [id number] 18:58:00 Test Item Value Reference Range Interpretation [...] (BEAKER) (test code = 2801) BLOOD GAS, [id number] 15:31:00 Test Item Value Reference Range Interpretation [...] 1819) 100.0 % HGB/HCT (H&H) - STAT [id number] 15:31:00 Test Item Value Reference Range Interpretation Comments HEMOGLOBIN (BEAKER) (test code = 11.0 g/dL 13.0-16.8 L 410) HEMATOCRIT (BEAKER) (test code = 32.0 % 40.0-50.0 L 411) GLUCOSE-STAT [id number] 15:30:00 Test Item Value Reference Range Interpretation Comments GLUCOSE RANDOM (BEAKER) (test code = 87 mg/dL 70-110 652) SODIUM NA-STAT [id number] 15:30:00 Test Item Value Reference Range Interpretation Comments SODIUM (BEAKER) (test code = 381) 137 meq/L 135-148 POTASSIUM-STAT [id number] 15:30:00 Test Item Value Reference Range Interpretation Comments POTASSIUM (BEAKER) (test code = 4.0 meq/L 3.6-5.5 379) ANG, INSERTION G TUBE, W/ [id number] 14:18:00Reason for exam:- >Gastrostomy tubeFINAL REPORT Fluoroscopic guided gastrostomy tube placement, 07/11/2018. Clinical History: Laryngeal cancer. Modality: Fluoroscopy. Conduit Bender: Jack Lima MD. Software Development Coordinator:Dilip Vivas MD. Conscious sedation: 2.0 mg Versed, 150 mcg fentanyl IV for moderate sedation. The patient was continuously monitored throughout the procedure by the nurse. Vital signs remained stable throughout. Physician intraservice time was 25 minutes. Other medication: Glucagon 1 mg IV. Estimated Blood Loss: Less than 1 cc. Specimen: None. Fluoroscopy Time: 2.7 min.Reference Air Kerma (Ka, r): 15. 5 mGy. Technique: Discussion of risks, benefits, and [...] positioning within the stomach. An Amplatz wire wasadvanced through the needle and curled within the fundus. After a small skin incision was made, the soft tissue tract was created with serial dilators. After the tract was dilated, a 14 Haitian catheterwas placed into the stomach. The wire was then removed, and the pigtail of the catheter was locked. The catheter was then secured onto the skin with 2-0 silk. The patient tolerated the procedure well, w ithout immediate complications. The patient's vital signs remained stable throughout the procedure. Patient disposition: The patient was discharged from the department in stable condition. Impression:Successful and uncomplicated fluoroscopic guided gastrostomy tube placement, with conscious sedation. Signed: Jack Lima MDReport Verified Date/Time: 07/11/2018 14:18:50 Reading Location: [place] [id number] Angio Body Reading Room TSH/FREE T4 IF [id number] 13:24:00 Test Item Value Reference Range Interpretation Comments THYROID STIMULATING HORMONE 2.37 uIU/mL 0.35-4.94 (BEAKER) (test code = 772) RAD, CHEST, PA OR AP, 1 [id number] 11:03:00Reason for exam:->coughShould this be performed at the bedside?->NoFINAL REPORT AP chest HISTORY: Cough. COMPARISON: 06/17/2018. IMPRESSION: Tracheostomy tube present. Heart size normal. Lungs clear without effusion or pneumothorax. Intact skeleton. Signed: Ashok Whitaker MDReport Verified Date/Time: 07/10/2018 11:03:24 Reading Location: [address] Radiology Reading Room COMPREHENSIVE METABOLIC [id number] 10:52:00 Test Item Value Reference Range Interpretation [...] PATIEN TS. CBC W/PLT COUNT & AUTO [id number] 10:32:00 Test Item Value Reference Range Interpretation [...] H PERCENT (BEAKER) (test code = 2801) [id number] 10:30:00 Test Item Value Reference Range Interpretation Comments PROTIME (BEAKER) (test code = 14.6 seconds 11.7-14.7 759) INR (BEAKER) (test code = 370) 1.1 <=5.9 PARTIAL THROMBOPLASTIN TIME 34.3 seconds 22.5-36.0 (BEAKER) (test code = 760) RECOMMENDED COUMADIN/WARFARIN INR THERAPY RANGESSTANDARD DOSE: 2.0 - 3.0 Includes: PROPHYLAXIS for venous thrombosis, systemic embolization; TREATMENT for venous thrombosis and/or pulmonary embolus.HIGH RISK: Target INR is 2.5-3.5 for patients with mechanical heart valves.BLOOD [id number] 20:01:00 Test Item Value Reference Range Interpretation Comments CULTURE (BEAKER) (test No growth in 5 days code = 1095) BLOOD [id number] 20:01:00 Test Item Value Reference Range Interpretation Comments CULTURE (BEAKER) (test No growth in 5 days code = 1095) CBC W/PLT COUNT & AUTO [id number] 12:54:00 Test Item Value Reference Range Interpretation [...] Received comment: User comments: Slide comments:BASIC METABOLIC [id number] 06:44:00 Test Item Value Reference Range Interpretation [...] NOT APPLICABLE FOR DIALYSIS PATIEN TS. BLOOD [id number] 12:01:00 Test Item Value Reference Range Interpretation Comments CULTURE (BEAKER) (test No growth in 5 days code = 1095) CBC W/PLT COUNT & AUTO [id number] 11:06:00 Test Item Value Reference Range Interpretation [...] Received comment: User comments: Slide comments:BASIC METABOLIC [id number] 08:11:00 Test Item Value Reference Range Interpretation [...] NOT APPLICABLE FOR DIALYSIS PATIEN TS. BLOOD [id number] 08:01:00 Test Item Value Reference Range Interpretation Comments CULTURE (BEAKER) (test No growth in 5 days code = 1095) BLOOD [id number] 02:00:00 Test Item Value Reference Range Interpretation Comments CULTURE (BEAKER) (test No growth in 5 days code = 1095) BLOOD [id number] 02:00:00 Test Item Value Reference Range Interpretation Comments CULTURE (BEAKER) (test No growth in 5 days code = 1095) CBC W/PLT COUNT & AUTO [id number] 15:32:00 Test Item Value Reference Range Interpretation [...] 768) ARTIFACT (CELLAVISION)(BEAKER) Present (test code = 4665) HELMET CELLS 1+ few (CELLAVISION)(BEAKER) (test code = 2354) PLATELET CONCENTRATION Decreased (CELLAVISION)(BEAKER) (test code = 3845) Received comment: User comments: Slide comments:BASIC METABOLIC [id number] 07:38:00 Test Item Value Reference Range Interpretation [...] PATIEN TS. CBC W/PLT COUNT & AUTO [id number] 12:37:00 Test Item Value Reference Range Interpretation [...] Received comment: User comments: Slide comments:BASIC METABOLIC [id number] 12:04:00 Test Item Value Reference Range Interpretation [...] APPLICABLE FOR DIALYSIS PATIEN TS. VANCOMYCIN LEVEL, [id number] 12:02:00 Test Item Value Reference Range Interpretation Comments VANCOMYCIN RANDOM (BEAKER) (test 1.3 ug/mL code = 523) Reference Range: No [id number] 12:00:00 Test Item Value Reference Range Interpretation Comments MAGNESIUM (BEAKER) (test code = 2.2 mg/dL 1.6-2.6 627) SPUTUM CULTURE + GRAM [id number] 11:45:00 Test Item Value Reference Range Interpretation [...] 15-20 epithelial (BEAKER) (test code cells = 571605) GRAM STAIN RESULT <1+ gram negative (BEAKER) (test code coccobacilli = 106529) GRAM STAIN RESULT <1+ gram positive (BEAKER) (test code cocci in pairs = 267825) GRAM STAIN RESULT <1+ yeast with (BEAKER) (test code pseudohyphae = 413098) GRAM STAIN RESULT 1+ gram variable (BEAKER) (test code rods = 249899) 1+ Normal respiratory maxim[facility]T [facility] & AUTO DIFFERENTIAL 2018-06-17 18:36:00 [...] H PERCENT (BEAKER) (test code = 2801) [id number] 14:37:00 Test Item Value Reference Range Interpretation Comments PROCALCITONIN (BEAKER) (test code 0.08 ng/mL <0.05 H = 3036) SEPSIS RISK (ng/mL)Low: 0.05-0.50Intermediate: 0.51-2.00High: >=2.01LACTIC ACID, [id number] 13:43:00 Test Item Value Reference Range Interpretation Comments LACTATE BLOOD VENOUS 2.4 mmol/L 0.5-2.2 H Specime n slightly (2) (BEAKER) (test hemolyzed code = 2872) TISSUE [id number] 13:24:00Surgical Pathology Report Case: [id number] Authorizing Provider: Jennifer Fraire MD Collected: 06/09/2018 1735 Ordering Location: [address] Received: 06/10/2018 0811 Cardiovascular Pathologist: Jennifer Hull MD Specimen: Soft Tissue, Other, LEFT SUPRAGLOTTIC MASS LEFT SUPRAGLOTTIC MASS, LARYNGOSCOPIC BIOPSY: - ATYPICAL SQUAMOUS PROLIFERATION (SEE COMMENT) Signing Pathologist Direct Phone Line: [phone] signed by Jennifer Hull MD on 06/17/2018 at 1:24 PMThese are superficial fragments with hyperplasia, keratosis and dysplasia. Note is made of the history of chemoradiation. Ulceration, inflammation, atypical stromal cells and necrosis seen, may bedue to the effect of chemoradiation. Immunohistochemical studies for AE1/AE3 and p53 confirm that the atypical cells in the stroma are likely reactive stromal cells. No invasive carcinoma is seen. The biopsy may not be insurance claim representative of the entirelesion; Clinical correlation is recommended.57394; 91074; 96435Cbersgfry mass Left subglottic massThe specimen is received in a fluidless container labeled with patient information and labeled "left supraglottic mass" consisting of four fragments of red soft tissue ranging from 0.1 to 0.4 cm, submitted entirely A1. CG/pl PERFORMEDThe interpretation of thiscase included the use of immunohistochemistry or special stains. p53 and AE1/MF9Sylvmowjcucpysqgumye technical testing was performed at [facility], Pathology Laboratory where it was developed and its performance characteristics were determined. It has not been cleared or approvedby the U.S. Food and Drug Administration. The FDA has determined that such clearance or approval is not necessary. The test is used for clinical purposes. It should not be regarded as investigational or for research. This laboratory is certified under the Clinical Laboratory Improvement Amendments of 1988 (CLIA-88) as qualified to perform high complexity clinical laboratory testing.FL, ESOPH, SWALLOW FUNCTION, WITH CINE OR [id number] 12:08:00Reason for exam:->silent aspiration evaluationFINAL REPORT Modified barium swallow. CLINICAL HISTORY: silent aspiration evaluation. COMPARISON STUDY: None available. FINDINGS: Under the direction of patient's speech pathologist, the patient ingested thin barium, thick barium, barium-coated crackers and barium pur\\XE9\\e. No evidence of laryngeal penetration or aspiration is seen with any of the consistencies. Please refer to the speech pathology notes for further discussion. Fluoroscopy time: 0.4 minutes. One image. Signed: Gaudencio Beltran MDReport Verified Date/Time: 06/17/2018 12:08:38 Reading Location: [address] OrthoConsult Reading Room [id number] 09:44:00 Test Item Value Reference Range Interpretation Comments MAGNESIUM (BEAKER) (test code = 1.9 mg/dL 1.6-2.6 627) [id number] 09:44:00 Test Item Value Reference Range Interpretation Comments PHOSPHORUS (BEAKER) (test code = 2.9 mg/dL 2.3-4.7 604) RAD, CHEST, 1 VIEW, NON [id number] 08:16:00Reason for exam:->SOBShould this be performed at [...] Avelareport Verified Date/Time: 06/17/2018 08:16:46 Reading Location: [facility] Radiology Reading Room BASIC METABOLIC [id number] 06:25:00 Test Item Value Reference Range Interpretation [...] APPLICABLE FOR DIALYSIS PATIEN TS. VANCOMYCIN LEVEL, [id number] 06:25:00 Test Item Value Reference Range Interpretation Comments VANCOMYCIN RANDOM (BEAKER) (test 9.6 ug/mL code = 523) Reference Range: No NormalsDraw 30 min prior to scheduled dose, HOLD if level > 20 mcg/mL, informMD.RESPIRATORY PANEL [id number] 12:23:00 Test Item Value Reference Range Interpretation Comments HUMAN METAPNEUMOVIRUS Not detected Not detected, (BEAKER) (test code = Equivocal 9466) RHINOVIRUS (BEAKER) Not detected Not detected, (test code = 1584) Equivocal INFLUENZA A (BEAKER) Not detected Not [...] decisions. This sample was tested at the [facility] using the [employer]8 [employer] Respiratory Panel. It is FDA cleared and has been verified and approved by the [facility] for clinical use on nasal swab specimens. It is not FDA-cleared for use on bronchial wash/lavage samples. However, for this sample type, validation was performed and test characteristics were determined and approved, by [facility] for clinical use under the Clinical Laboratory Improvement Amendments (CLIA) of 1988 requirements. Therefore, FDA clearance isnot required. This laboratory is CLIA- certified and [employer] [place] [employer] (CAP)-accredited to perform high complexity testing.CBC W/PLT COUNT & AUTO [id number] 11:27:00 Test Item Value Reference Range Interpretation [...] comments:CT, CHEST WITH IV CONTRAST- PE TEST [id number] 09:53:00Worsening hypoxia s/o diagnosis and excision of laryngeal cancerFINAL REPORT CT Chest with contrast ( protocol) History: Shortness of breath Comparison: 06/12/2018 [...] or dissection. No pulmonary arterial filling defect. Patentcentral airways. No pneumothorax. Trace right pleural effusion. Interval development of airspace disease within the bilateral lower lobes as well as the dependent portions of the right middle lobe and left upper lobe. No significant findings in the partially imaged abdomen. No aggressive osseous lesion. Impression: 1. No evidence of pulmonary embolus.2. Interval development of airspace disease withinthe bilateral lower lobes as well as the dependent portions of the right middle lobe and left upper lobe. The findings are suspicious for aspiration pneumonitis or multifocal pneumonia. Signed: Burt Colunga Verified Date/Time: 06/16/2018 09:53:01 Reading Location: [facility] Diagnostic Imaging Reading Room - [place] [address] RAD, CHEST, 1 VIEW, NON [id number] 07:36:00Reason for exam:->recent pneumothorax, new trachShould this be performed at the bedside?->YesFINAL REPORT AP view of the chest dated 06/16/2018 COMPARISON: 06/15/2018 CLINICAL INFORMATION: recent pneumothorax, new trach Comment: Heart is normal in size. Pulmonary vasculatureis unremarkable. Parenchymal disease is seen in both lower loops of the suggestive of subsegmental atelectasis or pneumonia. The rest of the lungs are clear. No pleural effusion or pneumothorax is present. Tracheostomy tube remains in place. Impression: Nonspecific pulmonary parenchyma disease in bothlower lobes suspicious for pneumonia. Signed: Lucy Morales Verified Date/Time: 06/16/2018 07:36:27 Reading Location: [facility] Radiology Reading Room BASIC METABOLIC [id number] 05:45:00 Test Item Value Reference Range Interpretation [...] S NOT APPLICABLE FOR DIALYSIS PATIEN TS. [id number] 18:12:00 Test Item Value Reference Range Interpretation Comments MAGNESIUM (BEAKER) 2.0 mg/dL 1.6-2.6 Specimen slightly (test code = 627) hemolyzed BASIC METABOLIC [id number] 18:12:00 Test Item Value Reference Range Interpretation [...] PATIEN TS. RAD, CHEST, 1 VIEW, NON [id number] 13:18:00Reason for exam:->recent pneumothorax, new trachShould this be performed at the bedside?->YesFINAL REPORT RAD, CHEST, 1 VIEW, NON DEPT INDICATION: recent pneumothorax, new trach COMPARISON: Six hours prior FINDINGS: Portable frontal view of the chest. IMPRESSION: Support Lines: Stable tracheostomy tube. Lungs and pleura: Stable consolidation in the right base. Subsegmental atelectasis on the left with its effusion. No pneumothorax.Heart and mediastinum: Stable contours. Additional findings: None. Signed: JR Paul Robert MDReport Verified Date/Time: 06/15/2018 13:18:45 Reading Location: [address] Neuro Reading Room BLOOD GAS, [id number] 11:41:00 Test Item Value Reference Range Interpretation [...] one hour post initaition of vent support \\R\\1015TRPAPON [id number] 09:49:00 Test Item Value Reference Range Interpretation [...] 66 pg/mL 0-100 (test code = 700) [id number] 09:29:00 Test Item Value Reference Range Interpretation [...] exclusion of thrombosis is within 95-100% range. [id number] 09:12:00 Test Item Value Reference Range Interpretation Comments FIBRINOGEN LEVEL (BEAKER) (test 621 mg/dl 225-434 H code = 658) [id number] 09:10:00 Test Item Value Reference Range Interpretation Comments PHOSPHORUS (BEAKER) (test code = 2.8 mg/dL 2.3-4.7 604) [id number] 09:10:00 Test Item Value Reference Range Interpretation Comments MAGNESIUM (BEAKER) (test code = 1.9 mg/dL 1.6-2.6 627) COMPREHENSIVE METABOLIC [id number] 09:10:00 Test Item Value Reference Range Interpretation [...] S NOT APPLICABLE FOR DIALYSIS PATIEN TS. [id number] 09:01:00 Test Item Value Reference Range Interpretation Comments PROTIME (BEAKER) (test code = 15.2 seconds 11.7-14.7 H 759) INR (BEAKER) (test code = 370) 1.2 <=5.9 PARTIAL THROMBOPLASTIN TIME 31.6 seconds 22.5-36.0 (BEAKER) (test code = 760) RECOMMENDED COUMADIN/WARFARIN INR THERAPY RANGESSTANDARD DOSE: 2.0 - 3.0 Includes: PROPHYLAXIS for venous thrombosis, systemic embolization; TREATMENT for venous thrombosis and/or pulmonary embolus.HIGH RISK: Target INR is 2.5-3.5 for patients with mechanical heart valves.LACTIC ACID, [id number] 08:51:00 Test Item Value Reference Range Interpretation Comments LACTATE BLOOD 0.8 mmol/L 0.5-2.2 Specimen sligh tly ARTERIAL (2) (BEAKER) hemoly zed (test code = 2874) BLOOD GAS, [id number] 08:40:00 Test Item Value Reference Range Interpretation [...] (BEAKER) (test code = 1819) 80.0 % [id number] 08:00:00 Test Item Value Reference Range Interpretation Comments MAGNESIUM (BEAKER) (test code = 1.8 mg/dL 1.6-2.6 627) Add onCBC W/PLT COUNT & AUTO [id number] 06:45:00 Test Item Value Reference Range Interpretation [...] (BEAKER) (test code = 2801) BASIC METABOLIC [id number] 06:35:00 Test Item Value Reference Range Interpretation [...] I S NOT APPLICABLE FOR DIALYSIS PATIEN RAD, CHEST, 1 VIEW, NON [id number] 05:10:00Reason for exam:->sob, tachypneaShould this be performed at the bedside?->YesFINAL REPORT RAD, CHEST, 1 VIEW, NON DEPT INDICATION: sob, tachypnea COMPARISON: Prior day's exam FINDINGS: Portable frontal view of the chest. IMPRESSION: Support Lines: Stable. Lungs and pleura: Persistent patchy bibasilar heterogeneous airspace opacities, could reflect atelectasis versus pneumonia in the proper clinical setting. Possible small left pleural effusion. No pneumoth orax.Heart and mediastinum: Stable contours. Additional findings: None. Signed: Sridevi Carrillosaint [facility]uke[facility] Verified Date/Time: 06/15/2018 05:10:33 Reading Location: [address] Transitional Reading Room POCT-LACTIC ACID, VENOUS 2018-06-15 04:30:00 Test Item Value Reference Range Interpretation Comments POC-LACTIC ACID, 1.1 mmol/L 0.9-1.7 TESTED AT [facility] 6720 VENOUS (BEAKER) (test ALIYA Ruiz [facility] code = 2805) [address] URINALYSIS W/ REFLEX URINE [id number] 20:03:00 Test Item Value Reference Range Interpretation [...] = 2795) RAD, CHEST, 1 VIEW, NON [id number] 19:10:00Reason for exam:->SUSUPECTED INFECTIONShould this be performed at the bedside?->YesFINAL REPORT CLINICAL INDICATION: Suspected infection Comparison: 06/14/2018 The cardiomediastinal contours are stable. The lung volumes remain low. Bibasilar opacities, right greater than left, are similar to previous and may reflect atelectasis. Pneumonitis should be excluded clinically. There is no pneumothorax or large pleural effusion. A tracheostomy tube is stable in position. Signed: Mayra Garcia MDReport Verified Date/Time: 06/14/2018 19:10:10 Reading Location: [address] Reading Room CBC W/PLT COUNT & AUTO [id number] 04:36:00 Test Item Value Reference Range Interpretation [...] = 2801) RAD, CHEST, 1 VIEW, NON [id number] 04:13:00Reason for exam:->recent pneumothorax, new trachShould this be performed at the bedside?->YesFINAL REPORT RAD, CHEST, 1 VIEW, NON DEPT INDICATION: recent pneumothorax, new trach COMPARISON: Prior day's exam FINDINGS: Portable frontal view of the chest. IMPRESSION: SupportLines: Stable. Lungs and pleura: Interval increased consolidative airspace opacity of the right base. No large pleural effusion. No pneumothorax.Heart and mediastinum: Stable contours. Additional findings: None. Signed: Sridevi Carrillo Verified Date/Time: 06/14/2018 04:13:50 Reading Location: [facility] C013 Transitional Reading Room D GAS, [id number] 01:01:00 Test Item Value Reference Range Interpretation [...] (test code = 1819) 40.0 % POCT-GLUCOSE [id number] 05:32:00 Test Item Value Reference Range Interpretation Comments POC-GLUCOSE METER 92 mg/dL 70-110 TESTED AT [facility] 6720 (BEAKER) (test code = ALIYA Ruiz [facility] [address] 1538) RAD, CHEST, 1 VIEW, NON [id number] 05:03:00Reason for exam:->evaluate for pneumo r/t CTShould this be performed at the bedside?->YesFINAL REPORT RAD, CHEST, 1 VIEW, NON DEPT INDICATION: evaluate for pneumo r/t CT COMPARISON: Prior day's exam FINDINGS: Portable frontal view of the chest. IMPRESSION: Support Lines: Stable. Lungs and pleura: Increased airspace opacity in the right base may be related atelectasis however superimposed infection cannot be excluded in the proper clinical setting. No large pleural effusion. No pneumothorax.Heart and mediastinum: Stable contours. Additional findings: None. Signed: Sridevi Carrillo Verified Date/Time: 06/13/2018 05:03:31 Reading Location: [address] Transitional Reading Room [id number] 04:22:00 Test Item Value Reference Range Interpretation Comments PARTIAL THROMBOPLASTIN TIME 27.4 seconds 22.5-36.0 (BEAKER) (test code = 760) PROTHROMBIN [id number] 04:21:00 Test Item Value Reference Range Interpretation Comments PROTIME (BEAKER) (test code = 13.8 seconds 11.7-14.7 759) INR (BEAKER) (test code = 370) 1.1 <=5.9 RECOMMENDED COUMADIN/WARFARIN INR THERAPY RANGESSTANDARD DOSE: 2.0 - 3.0 Includes: PROPHYLAXIS for venous thrombosis, systemic embolization; TREATMENT for venous thrombosis and/or pulmonary embolus.HIGH RISK: Target INR is 2.5-3.5 for patients with mechanical heart valves.[id number] 04:20:00 Test Item Value Reference Range Interpretation Comments PHOSPHORUS (BEAKER) (test code = 3.1 mg/dL 2.3-4.7 604) [id number] 04:20:00 Test Item Value Reference Range Interpretation Comments MAGNESIUM (BEAKER) (test code = 2.0 mg/dL 1.6-2.6 627) BASIC METABOLIC [id number] 04:20:00 Test Item Value Reference Range Interpretation [...] PATIEN TS. CBC W/PLT COUNT & AUTO [id number] 04:14:00 Test Item Value Reference Range Interpretation [...] PERCENT (BEAKER) (test code = 2801) POCT-GLUCOSE [id number] 00:14:00 Test Item Value Reference Range Interpretation Comments POC-GLUCOSE METER 126 mg/dL 70-110 H TESTED AT [facility] 67 ([facility]) (test code = [facility] Sara [facility] 1538) [address] RAD, CHEST, 1 VIEW, NON [id number] 12:29:00Reason for exam:->s/p[ L thoracocentesisFINAL REPORT CLINICAL HISTORY: s/p[ L thoracocentesis TECHNIQUE: 1 view of the chest. COMPARISON: 06/12/2018 IMPRESSION: A tracheostomy tube is again seen. There is no pneumothorax. Bibasilar atelectasis is again noted. There is no significant appearing pleural fluid. The cardiomediastinal silhouette is magnified by technique. Signed: Jim Steelesaint luke's health [facility] Verified Date/Time: 06/12/2018 12:29:27 Reading Location: [address] Consult Reading Room POCT-GLUCOSE [id number] 12:10:00 Test Item Value Reference Range Interpretation Comments POC-GLUCOSE METER 194 mg/dL 70-110 H TESTED AT [facility] 6720 ([facility]) (test code = [facility] Sara [facility] 1538) [address] CT, CHEST, WITH [id number] 10:26:00Premedicated for contrast allergy. With general anesthesia please.FINAL REPORT INDICATION: Cancer surveillance. Report of laryngeal mass. COMPARISON:Chest radiograph June 12, 2018 TECHNIQUE: Chest CT exam WITH intravenous contrast. The exam was p erformed according to our department dose-optimization protocol, which [...] MDReport Verified Date/Time: 06/12/2018 10:26:26 Reading Location: [facility] Diagnostic Imaging Reading Room - [place] [address] , SOFT TISSUE NECK, [id number] 09:53:00Premedicated for contrast allergy. With gneral anesthesia [...] of the arytenoid cartilages. Vallecular volumes are asy mmetric, slightly larger on the left. Air is [...] laryngeal surface is somewhat limited by edema andthe presence of tracheostomy. Tracheostomy position is appropriate. No adenopathy. Correlation preoperative imaging is recommended when/if such imaging is available. Signed: JR Paul Robert MDReport Verified Date/Time: 06/12/2018 09:53:06 Reading Location: [facility] C013V Neuro Reading Room [id number] 06:00:00 Test Item Value Reference Range Interpretation Comments PHOSPHORUS (BEAKER) (test code = 2.9 mg/dL 2.3-4.7 604) [id number] 06:00:00 Test Item Value Reference Range Interpretation Comments MAGNESIUM (BEAKER) (test code = 2.1 mg/dL 1.6-2.6 627) BASIC METABOLIC [id number] 06:00:00 Test Item Value Reference Range Interpretation [...] NOT APPLICABLE FOR DIALYSIS PATIEN TS. POCT-GLUCOSE [id number] 05:44:00 Test Item Value Reference Range Interpretation Comments POC-GLUCOSE METER 157 mg/dL 70-110 H TESTED AT [facility] 2632 (BEAKER) (test code = ALIYA [place] 7508) [address] CBC W/PLT COUNT & AUTO [id number] 04:29:00 Test Item Value Reference Range Interpretation [...] 417) IMMATURE GRANULOCYTES-RELATIVE 1 % 0-1 PERCENT (ARCHIE) (test code = 2801) RAD, CHEST, 1 VIEW, NON [id number] 04:26:00Reason for exam:->evaluate for pneumo r/t CTShould this be performed at the bedside?->YesFINAL REPORT CLINICAL INDICATION: Support lines. Comparison: 06/10/2018 The cardiomediastinal contours are stable. The lung volumes remain low. The lateral pulmonary opacities are similar to previous within variation of acquisition technique. There is no pneumothorax. A tracheostomy tube is stable. Signed: Mayra Garcia MDReport Verified Date/Time: 06/12/2018 04:26:44 Reading Location: [address] Reading Room [id number] 04:02:00 Test Item Value Reference Range Interpretation Comments PARTIAL THROMBOPLASTIN TIME 29.1 seconds 22.5-36.0 (ARCHIE) (test code = 760) PROTHROMBIN TIME/[id number] 04:01:00 Test Item Value Reference Range Interpretation Comments PROTIME (ARCHIE) (test code = 13.4 seconds 11.7-14.7 759) INR (ARCHIE) (test code = 370) 1.0 <=5.9 RECOMMENDED COUMADIN/WARFARIN INR THERAPY RANGESSTANDARD DOSE: 2.0 - 3.0 Includes: PROPHYLAXIS for venous thrombosis, systemic embolization; TREATMENT for venous thrombosis and/or pulmonary embolus.HIGH RISK: Target INR is 2.5-3.5 for patients with mechanical heart valves.POCT-GLUCOSE [id number] 00:10:00 Test Item Value Reference Range Interpretation Comments POC-GLUCOSE METER 225 mg/dL 70-110 H TESTED AT [facility] ([facility]) (test code = ALIYA Ruiz [facility] 1538) [id number] POCT-GLUCOSE [id number] 06:14:00 Test Item Value Reference Range Interpretation Comments POC-GLUCOSE METER 129 mg/dL 70-110 H TESTED AT [facility] ([facility]) (test code = [facility] 1538) [id number] TSH/FREE T4 IF [id number] 04:46:00 Test Item Value Reference Range Interpretation Comments THYROID STIMULATING HORMONE 0.87 uIU/mL 0.35-4.94 (BEAKER) (test code = 772) CBC W/PLT COUNT & AUTO [id number] 04:30:00 Test Item Value Reference Range Interpretation [...] 0-1 PERCENT (BEAKER) (test code = 2801) [id number] 04:26:00 Test Item Value Reference Range Interpretation Comments PREALBUMIN (BEAKER) (test code = 25 mg/dL 14-45 586) [id number] 04:24:00 Test Item Value Reference Range Interpretation Comments PHOSPHORUS (BEAKER) (test code = 3.5 mg/dL 2.3-4.7 604) [id number] 04:24:00 Test Item Value Reference Range Interpretation Comments MAGNESIUM (BEAKER) (test code = 2.0 mg/dL 1.6-2.6 627) BASIC METABOLIC [id number] 04:24:00 Test Item Value Reference Range Interpretation [...] NOT APPLICABLE FOR DIALYSIS PATIEN TS. PROTHROMBIN [id number] 04:19:00 Test Item Value Reference Range Interpretation Comments PROTIME (BEAKER) (test code = 14.5 seconds 11.7-14.7 759) INR ([facility]) (test code = 370) 1.1 <=5.9 RECOMMENDED COUMADIN/WARFARIN INR THERAPY RANGESSTANDARD DOSE: 2.0 - 3.0 Includes: PROPHYLAXIS for venous thrombosis, systemic embolization; TREATMENT for venous thrombosis and/or pulmonary embolus.HIGH RISK: Target INR is 2.5-3.5 for patients with mechanical heart valves.[id number] 04:19:00 Test Item Value Reference Range Interpretation Comments PARTIAL THROMBOPLASTIN TIME 29.7 seconds 22.5-36.0 ([facility]) (test code = 760) POCT-GLUCOSE [id number] 01:04:00 Test Item Value Reference Range Interpretation Comments POC-GLUCOSE METER 128 mg/dL 70-110 H TESTED AT [place] [address] ([facility]) (test code = [facility] 1538) [id number] POCT-GLUCOSE [id number] 18:19:00 Test Item Value Reference Range Interpretation Comments POC-GLUCOSE METER 93 mg/dL 70-110 TESTED AT [place] [address] ([facility]) (test code = [facility] [id number] 1538) POCT-GLUCOSE [id number] 11:44:00 Test Item Value Reference Range Interpretation Comments POC-GLUCOSE METER 87 mg/dL 70-110 TESTED AT [place] [address] ([facility]) (test code = [facility] [address] 1538) POCT-GLUCOSE [id number] 06:13:00 Test Item Value Reference Range Interpretation Comments POC-GLUCOSE METER 158 mg/dL 70-110 H TESTED AT [place] [address] ([facility]) (test code = [facility] 1538) [id number] BLOOD GAS, [id number] 04:53:00 Test Item Value Reference Range Interpretation Comments PH VENOUS ([facility]) (test code = 7.48 7.32-7.42 H 701) PCO2 VENOUS ([facility]) (test code = 37 mmHg 41-51 L 755) PO2 VENOUS ([facility]) (test code = 94 mmHg 25-40 H 702) O2 SATURATION VENOUS ([facility]) 97.7 % 40.0-70.0 H (test code = 703) HCO3 VENOUS ([facility]) (test code = 27 mmol/L 21-29 705) BASE EXCESS VENOUS (BEAKER) (test 3.7 mmol/L -2.0-3.0 H code = 704) PATIENT TEMPERATURE (BEAKER) (test 37.0 C code = 1818) RAD, CHEST, 1 VIEW, NON [id number] 04:42:00Reason for exam:->s/p tracheostomyShould this be performed at the bedside?->YesFINAL REPORT RAD, CHEST, 1 VIEW, NON DEPT INDICATION: s/p tracheostomy COMPARISON: Prior day's exam FINDINGS: Portable frontal view of the chest. IMPRESSION: Support Lines: Stable.Lungs and pleura: Increased left retrocardiac and right basilar opacities could represent atelectasis however developing infection can have a similar appearance in the proper clinical setting. Small bilateral pleural effusions. Previously seen left apical pneumothorax is not identified on the current examination.Heart and mediastinum: Stable contours. Additional findings: None. Signed: Sridevi Carrillo Verified Date/Time: 06/10/2018 04:42:37 Reading Location: [address] Reading Room [id number] 04:29:00 Test Item Value Reference Range Interpretation Comments MAGNESIUM (BEAKER) 2.2 mg/dL 1.6-2.6 Specimen slightly (test code = 627) hemolyzed [id number] 04:29:00 Test Item Value Reference Range Interpretation Comments PHOSPHORUS (BEAKER) 3.7 mg/dL 2.3-4.7 Specimen slightly (test code = 604) hemolyzed BASIC METABOLIC [id number] 04:29:00 Test Item Value Reference Range Interpretation [...] S NOT APPLICABLE FOR DIALYSIS PATIEN TS. [id number] 04:18:00 Test Item Value Reference Range Interpretation Comments PARTIAL THROMBOPLASTIN TIME 24.5 seconds 22.5-36.0 (BEAKER) (test code = 760) PROTHROMBIN TIME/[id number] 04:17:00 Test Item Value Reference Range Interpretation Comments PROTIME (BEAKER) (test code = 13.7 seconds 11.7-14.7 759) INR (BEAKER) (test code = 370) 1.0 <=5.9 RECOMMENDED COUMADIN/WARFARIN INR THERAPY RANGESSTANDARD DOSE: 2.0 - 3.0 Includes: PROPHYLAXIS for venous thrombosis, systemic embolization; TREATMENT for venous thrombosis and/or pulmonary embolus.HIGH RISK: Target INR is 2.5-3.5 for patients with mechanical heart valves.CBC W/PLT COUNT & AUTO [id number] 04:06:00 Test Item Value Reference Range Interpretation [...] PERCENT (BEAKER) (test code = 2801) POCT-GLUCOSE [id number] 01:05:00 Test Item Value Reference Range Interpretation Comments POC-GLUCOSE METER 161 mg/dL 70-110 H TESTED AT [facility] (BEAKER) (test code = ALI[facility] Ru[facility] [place] 1538) [address] RAD, CHEST, 1 VIEW, NON [id number] 22:19:00Reason for exam:->Laryngeal massShould this be performed [...] tracheostomy tube remain in place. Signed: Lucy Morlaes Verified Date/Time: 06/09/2018 22:19:49 Reading Location: [address] Consult Reading Room RAD, CHEST, 1 VIEW, NON [id number] 20:37:00Reason for exam:->Laryngeal massShould this be performed at the bedside?->YesFINAL REPORT AP view of the chest dated 06/09/2018 CLINICAL INFORMATION: Laryngeal mass Comment: Heart is normal in size. Pulmonary vasculature is unremarkable. Opacities is seen inthe left lower hemithorax suggesting subsegmental atelectasis or pneumonia. The rest of lungs are clear. No pleural effusion is present. Impression: Left lower lobe subsegmental atelectasis or pneumonia. Signed: Lucy Morales Verified Date/Time: 06/09/2018 20:37:30 Reading Location: [address] Consult Reading Room RAD, CHEST, 1 VIEW, NON [id number] 20:18:00 Reason for exam:->Post-opShould this be performed at the bedside?->Yes FINAL REPORT RAD, CHEST, 1 VIEW, NON DEPT INDICATION: Post- op COMPARISON: Priorday's exam FINDINGS: Portable frontal view of the [...] Osseous structures are unremarkable. Signed: Sridevi Carrillo Verified Date/Time: 06/09/2018 20:18:45 Nayla werner Location: [address] Reading Room CBC W/PLT COUNT & AUTO [id number] 19:32:00 Test Item Value Reference Range Interpretation [...] = 3438) Received comment: User comments: Slide comments:[id number] 19:25:00 Test Item Value Reference Range Interpretation Comments PHOSPHORUS (BEAKER) (test code = 4.7 mg/dL 2.3-4.7 604) [id number] 19:25:00 Test Item Value Reference Range Interpretation Comments MAGNESIUM (BEAKER) (test code = 2.2 mg/dL 1.6-2.6 627) BASIC METABOLIC [id number] 19:25:00 Test Item Value Reference Range Interpretation [...] NOT APPLICABLE FOR DIALYSIS PATIEN TS. PROTHROMBIN TIME/[id number] 19:18:00 Test Item Value Reference Range Interpretation Comments PROTIME (BEAKER) (test code = 13.0 seconds 11.7-14.7 759) INR (BEAKER) (test code = 370) 1.0 <=5.9 RECOMMENDED COUMADIN/WARFARIN INR THERAPY RANGESSTANDARD DOSE: 2.0 - 3.0 Includes: PROPHYLAXIS for venous thrombosis, systemic embolization; TREATMENT for venous thrombosis and/or pulmonary embolus.HIGH RISK: Target INR is 2.5-3.5 for patients with mechanical heart valves.[id number] 19:18:00 Test Item Value Reference Range Interpretation Comments PARTIAL THROMBOPLASTIN TIME 24.0 seconds 22.5-36.0 (BEAKER) (test code = 760) [id number] 12:47:00 Test Item Value Reference Range Interpretation Comments HEMOGLOBIN (BEAKER) (test code = 15.7 GM/DL 13.7-17.5 410) PLATELET [id number] 12:47:00 Test Item Value Reference Range Interpretation Comments PLATELET COUNT (BEAKER) (test 203 K/CU MM 150-450 code = 756) History and Physical Notes Date/Time Note Provider Source 2022-11-28 Formatting of this note is different from the or iginal. IM-INTERNAL [facility] 21:16:45-00:00 [facility] Hospitalist Admission H&P MEDICINE STAF F Date of Service: 11/28/2022 CHIEF COMPLAINT: Abdominal pain HISTORY OF PRESENT ILLNESS Jimmie Pugh is a 52 y ear old male who presents with abdominal pain. Patient with a history of chronic pancreatitis. Patient states he developed pancreatitis because of gallstones. Patient denies any significant history of a lcohol use/abuse. He states that he may drink once a week. Patient also with a history of squamous cell carcinoma of the larynx and chronic hyponatremia. He was admitted a few months ago with an elevated lipase level in [place]. At this time, patient will be admitted to the hospital for further work-up. Patient with acute on chronic pancreatitis and wi ll continue with pain contro l and gentle hydration. We will keep patient n.p.o. at this time as well. PAST MEDICAL HISTORY Past Medical History: Diagnosis Date Aphonia 04/13/2019 Asthma Coronavirus infection 2019 Hx of laryngectomy 07/14/2018 Hyponatremia Leukocytosis Neck infection 08/11/2018 Other chronic pancreatitis Squamous cell cancer of larynx Thyroid disease Tracheostomy in place PAST SURGICAL HISTORY Past Surgical History: Procedure Laterality Date ENDOSCOPIC RETROGRADE CHOLANGIOPANCRETOGRAPHY N /A 01/05/2021 Surgeon: Sadiq Napier MD; [facility] ESOPHAGEAL DILATATION N/A 02/11/2020 Surgeon: Fan Espinal MD; [facility] [place] ESOPHAGOGASTRODUODENOSCOPY N/A 01/20/2020 Surgeon: Fan Espinal MD; [facility] [place] [facility] Location ESOPHAGOGASTRODUODENOSCOPY N/A 02/01/2020 Surgeon: Sadiq Napier MD; Location: [facility] OR Location ESOPHAGOGASTRODUODENOSCOPY N/A 02/11/2020 Surgeon: Fan Espinal MD; Location: [facility] OR Location GASTROSTOMY INTRAOPERATIVE CHOLANGIOGRAM N/A 02/15/2020 Surgeon: Cindy Rodriguez MD; Location: [facility] [place] [facility] Location LAPAROSCOPIC CHOLECYSTECTOMY N/A 02/15/2020 Surgeon: Cindy Rodriguez MD; Location: [facility] OR Location TRACHEOSTOMY UPPER ULTRASOUND (SHX) N/A 01/29/2020 Surgeon: Brodie Jansen MD; Location: [facility] ([facility] OR Location ALLERGIES Allergies Allergen Reactions Bactrim [Sulfamethoxazole-Trimethoprim] Rash Iodine And Iodide Containing Products Nausea On ly Penicillins Hives and Rash Other reaction(s): Unknown - See comments Ampicillin Unknown - See comments Levofloxacin Hives and Rash MEDICATIONS Current home medication list reviewed: Current Discharge Medication List STOP taking these medications albuterol 90 mcg/actuation inhaler Comments: Reason for Stopping: ARIPiprazole 5 mg tablet Comments: Reason for Stopping: ondansetron 4 mg disintegrating tablet Comments : Reason for Stopping: ESCITALOPRAM OXALATE 20 mg tablet Comments: Reason for Stopping: CREON 12,000-38,000 -60,000 unit capsule Commen ts: Reason for Stopping: GABAPENTIN 800 mg tablet Comments: Reason for Stopping: omeprazole 40 mg capsule Comments: Reason for Stopping: levothyroxine 150 mcg tablet Comments: Reason for Stopping: ketoconazole 2 % shampoo Comments: Reason for Stopping: FAMILY HISTORY Family History Problem Relation Age of Onset Hypertension Father Coronary Heart Disease Father 40 PCI 4 stents Breast Cancer Mother SOCIAL HISTORY Social History Socioeconomic History Marital status: Single Spouse name: Daniel Number of children: 0 Years of education: 16 Highest education level: Some college, no degre e Occupational History 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 Tobacco Use Smoking status: Some Days Types: Cigarettes Smokeless tobacco: Never Tobacco comments: .5 PPD X >30 yrs Substance and Sexual Activity Alcohol use: Not Currently Comment: 1/ of liqour per week Drug use: Yes Types: Marijuana Social Determinants of Health Financial Resource Strain: Low Risk (11/13/2022) Overall Financial Resource Strain (CARDIA) Difficulty of Paying Living Expenses: Not hard at all Food Insecurity: No Food Insecurity (11/13/2022) Hunger Vital Sign Worried About Running Out of Food in the Last Y ear: Never true Ran Out of Food in the Last Year: Never true Transportation Needs: No Transportation Needs () PRAPARE - Transportation Lack of Transportation (Medical): No Lack of Transportation (Non-Medical): No Physical Activity: Inactive (11/05/2022) Exercise Vital Sign Days of Exercise per Week: 0 days Minutes of Exercise per Session: 0 min Social Connections: Unknown (11/13/2022) Social Connection and Isolation Panel [NHANES] Frequency of Communication with Friends and Family: More than three times a week Marital Status: Living with partner Housing Stability: Low Risk (11/13/2022) Housing Stability Vital Sign Unable to Pay for Housing in the Last Year: No Number of Places Lived in the Last Year: 1 Unstable Housing in the Last Year: No REVIEW OF SYSTEMS 10 systems negative except per HPI PHYSICAL EXAMINATION BP 118/79 | Pulse 69 | Temp 36.7 ?C (98.1 ?F) | Resp 18 | Ht 1.803 m (5' 11") | Wt 79.4 kg (175 lb) | SpO2 94% | BMI 24.41 kg/m? General: No acute distress HEENT: Normal oral mucosa, anicteric sclerae, NC AT Cardiovascular: RRR Lungs: Symmetric expansion, CTAB Abdomen: Soft, mildly tender; no rebound, no gua rding. Musculoskeletal: No synovitis, normal muscle mas s Genitourinary: Normal Skin: No rash, lesions Neuro: AAOx3, no focal deficits Psych: Normal affect LABS - reviewed pertinent labs as below: CBC BMP PT/INR WBC (10*3/?L) Date Value 11/28/2022 13.10 (H) NA (mmol/L) Date Value 11/28/2022 138 No results found for: "PT" RBC (10*6/?L) Date Value 11/28/2022 5.71 (H) K (mmol/L) Date Value 11/28/2022 3.8 INR (no units) Date Value 02/05/2021 1.0 PLT (10*3/?L) Date Value 11/28/2022 288 CALCIUM (mg/dL) Date Value 11/28/2022 9.8 HGB (g/dL) Date Value 11/28/2022 18.8 (H) CL (mmol/L) Date Value 11/28/2022 102 aPTT HCT (%) Date Value 11/28/2022 54.2 (H) BUN (mg/dL) Date Value 11/28/2022 12 APTT Patient (Seconds) Date Value 02/05/2021 35 CREATININE (mg/dL) Date Value 11/28/2022 0.59 (L) IMAGING - reviewed, pertinent results as below: No results found for this visit on 11/28/22. ASSESSMENT: 1. Abdominal pain secondary to acute on chronic pancreatitis 2. History of squamous cell carcinoma of the lar ynx status post laryngectomy 3. History of asthma 4. Liver cirrhosis 5. Nephrolithiasis 6. Diverticulosis 7. BPH PLAN: 1. Patient with abdominal pa in secondary to acute on chronic pancreatitis; lipase significantly elevated. Continue with n.p.o. and IV fluids. Continue with pain control. Monitor lipase level. Mild pain and continue with Creon at this time. Continue w ith pain control. 2. History of squamous cell carcinoma of the larynx status post laryngectomy; supportive care. 3. History of asthma; continue with inhaler ther apy 4. Liver cirrhosis; bilirubi n elevated. Coags 2 years ago were normal. Albumin was within normal limits as well. Hepatitis profile was negative a couple years ago. PATTI testing was negative as well. We w ill go ahead and check a MELD score and check co ags at this time. 5. Nephrolithiasis; nonobstr uctive so we will continue with monitoring. Patient can follow-up with urology as an outpatient for this as well as his BPH. 6. Diverticulosis; outpatient colonoscopy to con tinue monitoring 7. GI DVT prophylaxis DVT prophylaxis: enoxaparin Stress ulcer prophylaxis: pantoprazole Code status: FULL Advanced Care Planning (Z71.89) Above assessment and plan di scussed at length with patient, patient expressed full understanding. Questions and concerned addressed. Surrogate decision maker: LILLI Level of care expected after discharge: HOME Time spent: 2 minutes discussing the advanced ca re plan Smoking Cessation: (Z71.6) Tobacco user?: NO Patient will require inpatie nt stay of 2 midnights or more given high risk of morbidity and mortality. [place] HAND COLLATOR was verified during stay Sara Vilchis MD Electronically signed by Sara Vilchis MD a t 11/29/2022 1:52 AM CDT 2022-11-13 Formatting of this note is different from the or iginal. [facility] 03:44:36-00:00 [facility] MEDICINE HISTORY & PHYSICAL PCP: Michelle Date of Service: 11/13/2022 CHIEF COMPLAINT: abdominal pain History of Present Illness 52 yo male with PMH of asthm a, history of hyponatremia, squamous cell cancer of the larynx, admitted to the hospital as a direct admit from [facility] after he was found to have a lipase level of 824. Past Medical History: Diagnosis Date Aphonia 04/13/2019 Asthma Coronavirus infection 2018 Hx of laryngectomy 07/14/2018 Hyponatremia Leukocytosis Neck infection 08/11/2018 Other chronic pancreatitis Squamous cell cancer of larynx Thyroid disease Tracheostomy in place Past Surgical History: Procedure Laterality Date ENDOSCOPIC RETROGRADE CHOLANGIOPANCRETOGRAPHY N /A 01/05/2021 Surgeon: Sadiq Napier MD; Location[facility] Location ESOPHAGEAL DILATATION N/A 02/11/2020 Surgeon: Fan Espinal MD; [facility]: [facility] Location ESOPHAGOGASTRODUODENOSCOPY N/A 01/20/2020 Surgeon: Fan Espinal MD; Location: [facility] Location ESOPHAGOGASTRODUODENOSCOPY N/A 02/01/2020 Surgeon: Sadiq Napier MD; Location: [facility] OR Location ESOPHAGOGASTRODUODENOSCOPY N/A 02/11/2020 Surgeon: Fan Espinal MD; Location: [facility] [place] [facility] Location GASTROSTOMY INTRAOPERATIVE CHOLANGIOGRAM N/A 02/15/2020 Surgeon: Cindy Rodriguez MD; Location: [facility] [place] Location LAPAROSCOPIC CHOLECYSTECTOMY N/A 02/15/2020 Surgeon: Cindy Rodriguez MD; Location: [facility] [place] Location TRACHEOSTOMY UPPER ULTRASOUND (SHX) N/A 01/29/2020 Surgeon: Brodie Jansen MD; Location: [facility] ([facility] OR Location Allergies Allergen Reactions Bactrim [Sulfamethoxazole-Trimethoprim] Rash Iodine And Iodide Containing Products Nausea On ly Penicillins Hives and Rash Other reaction(s): Unknown - See comments Ampicillin Unknown - See comments Levofloxacin Hives and Rash @HMED@ Social History Socioeconomic History Marital status: Single Spouse name: Daniel Number of children: 0 Years of education: 16 Highest education level: Some college, no degre e Occupational History 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 Tobacco Use Smoking status: Some Days Types: Cigarettes Smokeless tobacco: Never Tobacco comments: .5 PPD X >30 yrs Substance and Sexual Activity Alcohol use: Not Currently Comment: 1/5th of liqour per week Drug use: Yes Types: Marijuana Social Determinants of Health Financial Resource Strain: Low Risk (11/05/2022) Overall Financial Resource Strain (CARDIA) Difficulty of Paying Living Expenses: Not hard at all Food Insecurity: No Food Insecurity (11/05/2022) Hunger Vital Sign Worried About Running Out of Food in the Last Y ear: Never true Ran Out of Food in the Last Year: Never true Transportation Needs: No Transportation Needs () PRAPARE - Transportation Lack of Transportation (Medical): No Lack of Transportation (Non-Medical): No Physical Activity: Inactive (11/05/2022) Exercise Vital Sign Days of Exercise per Week: 0 days Minutes of Exercise per Session: 0 min Social Connections: Unknown (11/05/2022) Social Connection and Isolation Panel [NHANES] Frequency of Communication with Friends and Family: More than three times a week Marital Status: Living with partner Housing Stability: Low Risk (11/05/2022) Housing Stability Vital Sign Unable to Pay for Housing in the Last Year: No Number of Places Lived in the Last Year: 1 Unstable Housing in the Last Year: No Family History Problem Relation Age of Onset Hypertension Father Coronary Heart Disease Father 40 PCI 4 stents Breast Cancer Mother REVIEW OF SYSTEMS (-)=Negative,(+)=Positive General: negative Skin: negative HEENT: negative Neck: negative Heme: negative Resp: negative Cardio: negative GI: abdominal pain : negative Endo: negative Neuro: negative Back: negative LAVON: negative Psych: negative PHYSICAL EXAMINATION Vitals: 11/13/22 0301 BP: 118/64 Pulse: 56 Resp: 16 Temp: 36.2 ?C (97.2 ?F) SpO2: 95% Body mass index is 34.96 kg/m?. General: Awake, alert, oriented x3 Head: Normocephalic, atraumatic Eyes: PERRLA, EOMI Oropharynx: Clear, moist oral mucosa Neck: Supple, no lymphadenopathy Cardiovascular: RRR, no murmurs, gallops, rubs Lung: CTA bilaterally Abdomen: Soft, nontender, nondistended, normoact pelon bowel sounds x4 Skin: Clean/dry/intact Neurologic: Nonfocal Extremities: No cyanosis/clubbing/edema LABS: Recent Results (from the past 24 hour(s)) CBC WITH DIFF Collection Time: 11/12/22 8:34 PM Result Value Ref Range WBC 7.83 4.20 - 10.70 10*3/?L RBC 4.80 4.26 - 5.52 10*6/?L HGB 15.7 12.2 - 16.4 g/dL HCT 46.9 38.4 - 49.3 % MCV 97.7 (H) 81.7 - 95.6 fL MCH 32.7 26.1 - 32.7 pg MCHC 33.5 31.2 - 35.0 g/dL RDW-SD 52.8 (H) 38.5 - 51.6 fL RDW-CV 14.6 12.1 - 15.4 % PLT 243 150 - 328 10*3/?L MPV 10.1 9.8 - 13.0 fL NRBC/100 WBC 0.0 0.0 - 10.0 /100 WBCs NRBC x10^3 <0.01 10*3/?L GRAN MAT (NEUT) % 72.2 % IMM GRAN % 0.90 % LYMPH % 14.7 % MONO % 10.0 % EOS % 1.4 % BASO % 0.8 % GRAN MAT x10^3(ANC) 5.66 1.99 - 6.95 10*3/uL IMM GRAN x10^3 0.07 (H) 0.00 - 0.06 10*3/uL LYMPH x10^3 1.15 1.09 - 3.23 10*3/uL MONO x10^3 0.78 0.36 - 1.02 10*3/uL EOS x10^3 0.11 0.06 - 0.53 10*3/uL BASO x10^3 0.06 0.01 - 0.09 10*3/uL BASIC METABOLIC PANEL (NA, K, CL, CO2, GLUCOSE, BUN, CREATININE, CA) Collection Time: 11/12/22 8:34 PM Result Value Ref Range NA 141 135 - 145 mmol/L K 3.4 (L) 3.5 - 5.0 mmol/L CL 104 98 - 108 mmol/L CO2 TOTAL 24 23 - 31 mmol/L AGAP 13 2 - 16 BUN 5 (L) 7 - 23 mg/dL GLUCOSE 100 70 - 110 mg/dL CREATININE 0.54 (L) 0.60 - 1.25 mg/dL CALCIUM 8.7 8.6 - 10.6 mg/dL eGFR 159.8 mL/min/1.73m2 HEPATIC FUNCTION PANEL ([id number]) (ALB,T.PRO,BILI T ,BU/BC,ALT,AST,ALK PHOS) Collection Time: 11/12/22 8:34 PM Result Value Ref Range TOTAL BILI 0.5 0.1 - 1.1 mg/dL BILI UNCON 0.3 0.1 - 1.1 mg/dL BILI CONJ 0.0 0.0 - 0.3 mg/dL T PROTEIN 6.9 6.3 - 8.2 g/dL ALBUMIN 3.9 3.5 - 5.0 g/dL ALK PHOS 98 34 - 122 U/L ALTv 17 5 - 50 U/L AST(SGOT) 16 13 - 40 U/L LIPASE Collection Time: 11/12/22 8:34 PM Result Value Ref Range LIPASE 824 (H) 0 - 220 U/L RADIOLOGY: CT ABDOMEN PELVIS WO CONTRAST Result Date: 11/12/2022 Impression: Mild acute pancr eatitis has mildly improved as compared to the prior exam. Hepatic cirrhosis. Cholecystectomy. Non obstructing urinary calculus in the right kidney. Sigmoid and descending di verticulosis without acute d iverticulitis. Enlarged prostate gland. AFC: [id number] RL [id number] End of report. : N/A CHART REVIEW: @BASELINE@ ASSESSMENT/PLAN Jimmie Pugh is a 52 y ear old male with PMHx of chronic pancreatitis, admitted to the hospital with:acute pancreatitis Acute on chronic pancreatitis Dehydration Hypothyroidism GERD NPO Pain control IV fluids Home meds @COMFORT@ Prophylaxis: DVT: enoxaparin Stress Ulcer: pantoprazole Dr. Joe Treadwell 2022-11-04 Formatting of this note is different from the or iginal. [facility] 21:53:48-00:00 MEDICINE [facility] ADMIT H&P Date of Service: 11/04/2022 CHIEF COMPLAINT: abdominal pain, nausea/vomiting , diarrhea History of Present Illness 52 yo male with pmh of asthm a, COVID, chronic pancreatitis, laryngeal cancer and MRSA tracheitis s/p tracheostomy, hypothyroidism who presents to the ED secondary to nausea, vomiting, diarrhea and abdom inal pain for the past 2 days. He describes it a s Non-radiating epigastric wor sening abdominal pain. No fever and eating okay. Additional symptoms: loose diarrhea. PAST MEDICAL HISTORY Past Medical History: Diagnosis Date Aphonia 04/13/2019 Asthma Coronavirus infection 2019 Hx of laryngectomy 07/14/2018 Hyponatremia Leukocytosis Neck infection 08/11/2018 Other chronic pancreatitis Squamous cell cancer of larynx Thyroid disease Tracheostomy in place Past Surgical History: Procedure Laterality Date ENDOSCOPIC RETROGRADE CHOLANGIOPANCRETOGRAPHY N /A 01/05/2021 Surgeon: Sadiq Napier MD; [facility] ESOPHAGEAL DILATATION N/A 02/11/2020 Surgeon: Fan Espinal MD; Location: [facility] OR Location ESOPHAGOGASTRODUODENOSCOPY N/A 01/20/2020 Surgeon: Fan Espinal MD; Location: [facility] [place] [facility] Location ESOPHAGOGASTRODUODENOSCOPY N/A 02/01/2020 Surgeon: Sadiq Napier MD; Location: [facility] Location ESOPHAGOGASTRODUODENOSCOPY N/A 02/11/2020 Surgeon: Fan Espinal MD; Location: [facility] [place] [facility] Location GASTROSTOMY INTRAOPERATIVE CHOLANGIOGRAM N/A 02/15/2020 Surgeon: Cindy Rodriguez MD; Location: [facility] [place] Location LAPAROSCOPIC CHOLECYSTECTOMY N/A 02/15/2020 Surgeon: Cindy Rodriguez MD; Location: [facility] [place] [facility] Location TRACHEOSTOMY UPPER ULTRASOUND (SHX) N/A 01/29/2020 Surgeon: Brodie Jansen MD; Location: [facility] ([facility] Location Family History Problem Relation Age of Onset Hypertension Father Coronary Heart Disease Father 40 PCI 4 stents Breast Cancer Mother ALLERGIES Allergies Allergen Reactions Bactrim [Sulfamethoxazole-Trimethoprim] Rash Iodine And Iodide Containing Products Nausea On ly Penicillins Hives and Rash Other reaction(s): Unknown - See comments Ampicillin Unknown - See comments Levofloxacin Hives and Rash MEDICATIONS No current facility-administered medications on file prior to encounter. Current Outpatient Medications on File Prior to Encounter Medication Sig Dispense Refill ESCITALOPRAM OXALATE 20 mg tablet TAKE ONE TABLET BY MOUTH EVERY MORNING 90 tablet 1 albuterol 90 mcg/actuation inhaler Inhale 2 Puffs every 6 (six) hours as needed for Wheezing or Shortness of Breath. 8.5 g 0 CREON 12,000-38,000 -60,000 unit capsule TAKE ONE CAPSULE BY MOUTH EVERY MORNING , ONE CAPSULE AT NOON AND 1 CAPSULE IN THE EVENING WITH MEALS 90 capsule 3 GABAPENTIN 800 mg tablet TA KE ONE TABLET BY MOUTH EVERY MORNING , ONE TABLET AT NOON AND 1 TABLET IN THE EVENING 90 tablet 1 omeprazole 40 mg capsule Ta ke one capsule by mouth twice daily for one week then one capsule by mouth daily 97 capsule 3 levothyroxine 150 mcg table t Take 1 tablet by mouth every morning. 90 tablet 1 ARIPiprazole 5 mg tablet Take 1 tablet by mouth in the morning. 90 tablet 1 ketoconazole 2 % shampoo Ap ply to area(s) once daily as needed for Itching. 120 mL 1 I attest that the foregoing medication list in the medical record is true, accurate and complete to the best of my knowledge. SOCIAL HISTORY Social History Socioeconomic History Marital status: Single Spouse name: Daniel Number of children: 0 Years of education: 16 Highest education level: Some college, no degre e Occupational History 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 Tobacco Use Smoking status: Former Smokeless tobacco: Never Tobacco comments: .5 PPD X >30 yrs Substance and Sexual Activity Alcohol use: Not Currently Comment: 1/5th of liqour per week Drug use: Yes Types: Marijuana Social Determinants of Health Financial Resource Strain: Low Risk (01/29/2020) Overall Financial Resource Strain (CARDIA) Difficulty of Paying Living Expenses: Not hard at all Food Insecurity: No Food Insecurity (01/29/2020) Hunger Vital Sign Worried About Running Out of Food in the Last Y ear: Never true Ran Out of Food in the Last Year: Never true Transportation Needs: No Transportation Needs (1 ) PRAPARE - Transportation Lack of Transportation (Medical): No Lack of Transportation (Non-Medical): No Review of Systems Constitutional: Negative. HENT: Negative. Eyes: Negative. Respiratory: Positive for co ugh (nonproductive). Negative for apnea, choking, chest tightness, shortness of breath, wheezing and stridor. Breasts: Negative. Cardiovascular: Negative. Gastrointestinal: Positive f or abdominal pain, diarrhea (loose), nausea and vomiting. Negative for abdominal distention, anal bleeding, blood in stool, constipation and rectal pain. Genitourinary: Negative. Musculoskeletal: Negative. Skin: Negative. Neurological: Negative. Psychiatric/Behavioral: Negative. Endocrine: Endocrine negative PHYSICAL EXAMINATION Vitals: 11/04/22 1700 11/04/22 1800 11/04/22 1929 11/04 BP: 120/82 105/62 112/70 Pulse: 73 63 52 Resp: 16 14 20 Temp: 36.1 ?C (97 ?F) TempSrc: SpO2: 94% 93% 92% Weight: Height: 1.524 m (5') Physical Exam Vitals and nursing note reviewed. Constitutional: General: He is not in acute distress. Appearance: Normal appearan ce. He is not ill-appearing, toxic-appearing or diaphoretic. HENT: Head: Normocephalic and atraumatic. Right Ear: External ear normal. Left Ear: External ear normal. Nose: Nose normal. No congestion. Mouth/Throat: Mouth: Mucous membranes are moist. Pharynx: No oropharyngeal exudate. Eyes: General: No scleral icterus. Extraocular Movements: Extraocular movements in tact. Conjunctiva/sclera: Conjunctivae normal. Pupils: Pupils are equal, round, and reactive t o light. Cardiovascular: Rate and Rhythm: Normal rate and regular rhythm . Heart sounds: No murmur heard. No friction rub. No gallop. Pulmonary: Effort: Pulmonary effort is normal. No respirat ory distress. Breath sounds: Normal breath sounds. No wheezin g or rales. Chest: Chest wall: No tenderness. Abdominal: General: Abdomen is flat. Bowel sounds are norm al. There is no distension. Palpations: Abdomen is soft. Tenderness: There is abdominal tenderne ss (epigastric). There is no guarding. Musculoskeletal: General: Normal range of motion. Cervical back: Normal range of motion and neck supple. Right lower leg: No edema. Left lower leg: No edema. Skin: General: Skin is warm and dry. Neurological: Mental Status: He is alert. Psychiatric: Mood and Affect: Mood normal. Behavior: Behavior normal. Thought Content: Thought content normal. Judgment: Judgment normal. LABS - reviewed pertinent labs as below: Reviewed IMAGING - reviewed, pertinent results as below: CT abdomen and pelvis without contrast History: Abdominal pain, acute, nonlocalized Iod ine allergy, h/o Pancreatitis Technique: CT dose reduction by ALARA principles . Multiple contiguous axial CT images of the abdomen and pelvis were o btained without contrast. Sagittal and coronal reformatted images were con structed. Prior: None Findings: The lung bases are clear. The visualized heart i s normal in size. Coronary atherosclerosis is present. The liver is normal in size. No intrahepatic mary lou iary dilatation. Cholecystectomy clips are present. The pancreati c head appears ill-defined with some inflammatory stranding that tracks int o Morison's pouch. Findings may represent pancreatitis. No inflammatory cartwright ges of the body or tail of the pancreas. There is mild chronic perinephric stranding/scar ring of the kidneys. No hydronephrosis bilaterally. There is a 1 mm punc sparrow nonobstructing stone of the right kidney. There is mild calcified nava que of the aorta. The aorta demonstrates no aneurysm. There is mild diffuse prominence of the wall of the bladder which may be secondary to incomplete distention or cystitis. Mild hypertrophy of the bladder wall as result of partial bladder outlet obstruction from a mildly enlarged prostate gland also cannot be excluded. There is no free fluid. The stomach is normal. The second portion of the duodenum demonstrates inflammatory wall thickening which may be second tawana to duodenitis or as a result of adjacent pancreatitis. There is minima l fluid within small bowel loops in the lower abdomen without significant d ilatation and no wall thickening. Findings are nonspecific. Enteritis cannot be excluded. There is mild diverticulosis of the colon withou t diverticulitis. The appendix not visualized. There is no inflammator y changes in the region of the cecum. The included bones are intact. IMPRESSION Impression: Inflammatory thickening seen at the second porti on of the duodenum with ill-defined pancreatic head. Findings may repres ent duodenitis and/or pancreatitis. Correlation with laboratory values recommended. Endoscopy may be warranted. There is minimal fluid within small bowel loops in the lower abdomen without significant dilatation and no wall thick ening. Findings are nonspecific. Enteritis cannot be excluded. There is mild diverticulosis of the colon withou t diverticulitis. There is a 1 mm punctate nonobstructing stone of the left kidney. There is mild diffuse prominence of the wall of the bladder which may be secondary to incomplete distention or cystitis. Mild hypertrophy of the bladder wall as result of partial bladder outlet obstruction from a mildly enlarged prostate gland also cannot be excluded. ASSESSMENT/PLAN Jimmie Pugh is a 52 y ear old obese male with PMH as listed above, admitted to the hospital with: Acute on chronic pancreatitis: -- Will keep NPO -- IV fluid hydration -- Will order Zofran for dax n control as well as Narco and continue the Fentanyl for as need pain control -- AM lipid panel -- Will continue with Creon 2. Asthma: stable -- Will resume albuterol as needed 3. Hypothyroidism -- Will continue with levothyroxine 4. Bipolar disease -- Will resume escitalopram, gabapentin, aripipr azole 5. GERD: -- will resume omeprazole Prophylaxis: DVT- enoxaparin Code Status: addressed: FC Electronically signed by Eli Toney MD at 0 11/05/2022 3:54 AM CDT Notes Date/Time Note Provider Source 2022-12-11 [facility] 16:43:02-00:00 Attempted to contact patient, left message. Electronically signed by Piper Manzano MA at 4:44 PM CDT 2022-12-10 Formatting of this note might be differe nt from the original. Tez Mendoza [facility] 11:13:55-00:00 Patients spouse is returning call regarding referral spouse was advised that appointment is needed but declined and requested a call from nurse. Hesham Electronically signed by Tez Dahl 12/10/2022 11:14 AM CDT 2022-12-07 [facility] 17:31:15-00:00 Notified family member that patient needs to call for appointment Electronically signed by Piper Manzano MA at 5:31 PM CDT 2022-12-07 Formatting of this note might be differe nt from the original. Manpreet Escobar [facility] 11:15:55-00:00 Jimmie Pugh is a 52 year old male [place] a Pt called stating that pain management has not yet received referral fax # [phone] Phone number is [phone] 2022-12-07 [facility] 08:31:10-00:00 Attempted to contact patient , left message on voicemail with EC to call back Electronically signed by Piper Manzano MA at 8:31 AM CDT 2022-12-06 [facility] 14:55:36-00:00 Attempted to contact patient , not taking calls. Patient needs to be seen as noted in previous message. Thank you. Electronically signed by Piper Manzano MA at 2:57 PM CDT 2022-12-06 Formatting of this note might be differe nt from the original. Julita Javy [facility] 13:51:49-00:00 Patient's Daniel is ca lling requesting the referral for pain management be re faxed to [phone]. See previous call. She states they are also requesting his most recent medical records. Electronically signed by Piper Palafox at 0 12/06/2022 1:54 PM CDT 2022-12-06 [facility] 09:09:33-00:00 Attempted to contact patient , patient not accepting calls, I will send my chart message. Electronically signed by Piper Manzano MA at 9:12 AM CDT 2022-12-04 Formatting of this note is different fro m the original. Anderson Francisco RN [facility] 17:02:14-00:00 TRANSITIONAL CARE MANAGEMENT ASSESSMENT 12/04/2022 Jimmie Pugh [id number] Jimmie Pugh is a 52 y ear old /White male was admitted on 11/28/22 to [facility]. He was discharged on 11/30/22 with discharge disposition of HR- Routine Discharge. Admitting Physician: Deric Santos Discharge Diagnosis: Acute on chronic pancreatit is Linked Episodes Type: Episode: Status: Noted: Resolved: Last upd ate: Updated by: TRANSITION OF CARE TCM Active 11/30/2022 12:45 PM Anderson Francisco, RN Comments: TCM [id number]-face outreac h documentation: CM made follow up call to patient post-discharge. No answer and message states "the person you are trying to call is not accepting calls at this time". Two attempts made to reach patient. Discharge Assessment Chart Assessed: 12/04/22 TCM Outreach Completed: 12/04/22 Future Appointments: Future Appointments Provider Department Dept Phone 01/11/2023 2:00 PM Alex Gunter MD [facility] [phone] 03/18/2023 11:00 AM Michelle Justice FNP [facility] [place] [phone] Electronically signed by Anderson Francisco RN a t 12/04/2022 5:03 PM CDT 2022-12-04 [facility] 15:39:07-00:00 Attempted to contact patient, not taking calls a t this time Needs appointment Electronically signed by Piper Manzano MA at 4:45 PM CDT 2022-12-04 Formatting of this note might be differe nt from the original. Elodia Gibson [facility] 13:48:25-00:00 Ms Cooney is calling Dr Larry chaparro's office has not received referral for pain management. Please place outgoing referral. Please call and advise thanks. Electronically signed by Elodia Gbison at 1:50 PM CDT 2022-12-04 [facility] 12:47:28-00:00 CM made follow up call to lorelei tripp post-discharge. No answer and message states "the person you are trying to reach is not accepting calls at this time". Electronically signed by Anderson Francisco RN a t 12/04/2022 12:48 PM CDT 2022-11-30 Formatting of this note might be differe nt from the original. Ayde Sommer [facility] 10:31:25-00:00 Abebe PENA Problem: Falls, Risk of Goal: Absence of falls Outcome: Resolved Problem: Skin integrity Impaired (Risk or Actual ) Goal: Wound healing Outcome: Resolved Goal: Prevention of new skin breakdown Outcome: Resolved Problem: Discharge Planning Goal: Adequate for discharge Outcome: Resolved Goal: Effective communication Outcome: Resolved Problem: Venous Thromboembolism, (actual or risk of) Goal: Absence of venous thromboembolism (Risk) Outcome: Resolved Goal: Prevent further complications associated w ith VTE diagnosis (Actual) Outcome: Resolved Problem: Pain Goal: Control of pain at or below patient's docu mented comfort goal Outcome: Resolved Goal: Reduction in pain sensation Outcome: Resolved 2022-11-29 Formatting of this note might be differe nt from the original. Greta Nova RN [facility] 22:16:23-00:00 Problem: Falls, Risk of Goal: Absence of falls Outcome: Progressing as expected Problem: Skin integrity Impaired (Risk or Actual ) Goal: Wound healing Outcome: Progressing as expected Goal: Prevention of new skin breakdown Outcome: Progressing as expected Problem: Discharge Planning Goal: Adequate for discharge Outcome: Progressing as expected Goal: Effective communication Outcome: Progressing as expected Problem: Venous Thromboembolism, (actual or risk of) Goal: Absence of venous thromboembolism (Risk) Outcome: Progressing as expected Goal: Prevent further complications associated w ith VTE diagnosis (Actual) Outcome: Progressing as expected Problem: Pain Goal: Control of pain at or below patient's docu mented comfort goal Outcome: Progressing as expected Goal: Reduction in pain sensation Outcome: Progressing as expected Electronically signed by Greta Nova RN at 0 11/29/2022 10:16 PM CDT 2022-11-29 [facility] 15:42:42-00:00 Problem: Falls, Risk of Goal: Absence of falls Outcome: Progressing as expected Problem: Skin integrity Impaired (Risk or Actual ) Goal: Wound healing Outcome: Progressing as expected Goal: Prevention of new skin breakdown Outcome: Progressing as expected Problem: Discharge Planning Goal: Adequate for discharge Outcome: Progressing as expected Goal: Effective communication Outcome: Progressing as expected Problem: Venous Thromboembolism, (actual or risk of) Goal: Absence of venous thromboembolism (Risk) Outcome: Progressing as expected Goal: Prevent further complications associated w ith VTE diagnosis (Actual) Outcome: Progressing as expected Problem: Pain Goal: Control of pain at or below patient's docu mented comfort goal Outcome: Progressing as expected Goal: Reduction in pain sensation Outcome: Progressing as expected 2022-11-29 Formatting of this note might be differe nt from the original. Jamar Gloria RN [facility] 03:24:42-00:00 Problem: Falls, Risk of Goal: Absence of falls Outcome: Progressing as expected Problem: Skin integrity Impaired (Risk or Actual ) Goal: Wound healing Outcome: Progressing as expected Goal: Prevention of new skin breakdown Outcome: Progressing as expected Problem: Discharge Planning Goal: Adequate for discharge Outcome: Progressing as expected Goal: Effective communication Outcome: Progressing as expected Problem: Venous Thromboembolism, (actual or risk of) Goal: Absence of venous thromboembolism (Risk) Outcome: Progressing as expected Goal: Prevent further complications associated w ith VTE diagnosis (Actual) Outcome: Progressing as expected Problem: Pain Goal: Control of pain at or below patient's docu mented comfort goal Outcome: Progressing as expected Goal: Reduction in pain sensation Outcome: Progressing as expected Electronically signed by Jamar Gloria RN at 3:24 AM CDT 2022-11-28 Formatting of this note might be differe nt from the original. 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 Marielos Alvarado RN [facility] 16:05:06-00:00 Epigastric discomfort x3 days. +N/V Electronically signed by Marielos Alvarado RN at 4:05 PM CDT 2022-11-22 Formatting of this note might be differe nt from the original. Kirill Bass RN [facility] 15:40:01-00:00 Pt given printed and verbal discharge instructions regarding epigastric pain, encouraged hydration. Pt verbalized understanding of instructions, pt awake alert oriented, resp reg unlabored, skin w/d, color appropriate for race, moves all ext well,pt encouraged to follow up with pcp. Advised to seek medical attention for new/prolon ged/worsening of symptoms. PIV d'cd, dressing to site, catheter in tact. Awake, alert oriented, resp reg unlabored, skin w/d, pt leaving amb with steady gait, in no apparent distress. 2022-11-22 Formatting of this note might be differe nt from the original. Manuel Sher RN [facility] 12:53:26-00:00 Patient c/o bilateral upper quadrant abdominal pain, patient has a history of chronic pancreatitis. Electronically signed by Manuel Sher RN at 0 11/22/2022 12:53 PM CDT 2022-11-16 [facility] 13:59:56-00:00 OV notes from 11/15/22 printed and faxed to [phone] Floresita Mortensen LVN 11/16/2022 2:00 PM 2022-11-16 Formatting of this note might be differe nt from the original. Jaylin Gaona [facility] 13:51:44-00:00 Kelin with [facility] is needing last progress notes for pt walker. Electronically signed by Jaylin Gaona at 1:54 PM CDT 2022-11-15 Formatting of this note is different fro m the original. Jenniffer Olivier RN [facility] 10:44:39-00:00 TRANSITIONAL CARE MANAGEMENT ASSESSMENT 11/15/2022 Jimmie Pugh [id number] Jimmie Pugh is a 52 y ear old /White male was admitted on 11/12/22 to [facility]. He was discharged on 11/14/22 with discharge disposition of HR- Routine Discharge. Admitting Physician: Joe Treadwell Discharge Diagnosis: Acute on chronic pancreatit is Linked Episodes Type: Episode: Status: Noted: Resolved: Last upd ate: Updated by: TRANSITION OF CARE TCM Activ e 11/06/2022 11/15/2022 10:43 AM Anderson Francisco RN Comments: TCM [id number]-cb-face outreach documentation: Discharge Assessment Chart Assessed: 11/15/22 TCM Outreach Completed: 11/15/22 Do you have a few minutes to speak with me about how you are doing at home?: Yes (Patient's significant other stated patient is doing fine) Discharge Instructions Do you understand your at-home instructions?: Ye s Medications Have you filled your prescri ptions and do you have them in your home? : See comments (Will scrap picker after MD appt) Do you know how to take your medications?: Yes Supplies Did you receive applicable home medical supplies /equipment?: N/A Follow Up Appointment Has a follow up appointment been scheduled?: Yes (Patient was at MD appt during call) Do you have any questions about your follow up a ppointments?: No Are you able to get to your appointment? Who will be taking you?: Yes (significant other) Home Health Assistance Has the home health nurse contacted you since yo u've been home?: N/A Survey - Recognition Is there anything you would like to share about your recent hospitalization, or anyone you would like to recognize?: No Do you have any suggestions for improvement?: No Do you have any other questions or concerns at t his time?: No Future Appointments: Future Appointments Provider Department Dept Phone 01/11/2023 2:00 PM Alex Gunter MD [facility] [phone] 2022-11-14 Formatting of this note might be differe nt from the original. Piper Mix RN [facility] 01:01:31-00:00 Problem: Pain Goal: Control of pain at or below patient's docu mented comfort goal Outcome: Progressing as expected Goal: Reduction in pain sensation Outcome: Progressing as expected Problem: Nausea/Vomiting Goal: Absence of nausea/vomiting Outcome: Progressing as expected Problem: Infection Risk Goal: Absence of infection Outcome: Progressing as expected Electronically signed by Piper Mix RN a t 11/14/2022 1:01 AM CDT 2022-11-13 Formatting of this note might be differe nt from the original. Sayda Bashir V [facility] 11:30:02-00:00 RN Problem: Pain Goal: Control of pain at or below patient's docu mented comfort goal Outcome: Progressing as expected Goal: Reduction in pain sensation Outcome: Progressing as expected Problem: Nausea/Vomiting Goal: Absence of nausea/vomiting Outcome: Progressing as expected Problem: Infection Risk Goal: Absence of infection Outcome: Progressing as expected 2022-11-13 [facility] 03:39:55-00:00 Problem: Pain Goal: Control of pain at or below patient's docu mented comfort goal 11/13/2022 0340 by Delisa Carter RN Outcome: Progressing as expected 11/13/2022 0339 by Delisa Carter RN Outcome: Progressing as expected 11/13/2022 0337 by Delisa Carter RN Outcome: Progressing as expected Goal: Reduction in pain sensation 11/13/2022 0339 by Delisa Carter RN Outcome: Progressing as expected 11/13/2022 0337 by Delisa Carter RN Outcome: Progressing as expected Problem: Nausea/Vomiting Goal: Absence of nausea/vomiting 11/13/2022 0340 by Delisa Carter RN Outcome: Progressing as expected 11/13/2022 0339 by Delisa Carter RN Outcome: Progressing as expected Problem: Infection Risk Goal: Absence of infection 11/13/2022 0340 by Delisa Carter RN Outcome: Progressing as expected 11/13/2022 0339 by Delisa Carter RN Outcome: Progressing as expected 2022-11-13 Formatting of this note might be differe nt from the original. Rose Lala [facility] 01:57:51-00:00 Patient transferred to [facility] f or diagnosis of acute on chronic pancreatitis RN Patient agrees to transfer/a dmit plan and verbalized understanding of plan of care, Patient awake alert, oriente d, resp reg unlabored, skin w/d PIV patent, no s/s infiltration noted, No adverse reaction to medications given while i n ED. Report given to [facility] EMS personnel and [facility] RN 2022-11-12 Formatting of this note might be differe nt from the original. Ashok Zaidi [facility] 18:49:33-00:00 Abdominal pain that started this morning with n/v. Past history of pancreatitis multiple times in the past and thinks that he has it again. Elizabeth RN 2022-11-12 Formatting of this note is different from the or iginal. [facility] 18:36:00-00:00 [facility] Emergency Department Note Patient Name: Jimmie Pugh Date of : 1970 52 year old male Treatment Room: [place] [address] Primary Care Physician: Vinh Martinez Patient Escorted by: Self [9] Mode of Arrival: Personal means [1] EMS Treatment Prior to ED Arrival: [facility] treatment: Medication (comment) [facility] treatment comments: daily meds Travel and Exposure Screening: Symptoms Does patient have any of these symptoms?: (not r ecorded) Exposure Screening Has patient had contact with someone with a communicable disease in the last month?: (not recorded) Diseases exposed to:: (not recorded) Is Patient ?: (not recorded) Exposure Date: (not recorded) Chief Complaint: Chief Complaint Patient presents with Abdominal Pain History of Present Illness: History provided by: Patient staff interpreter used: No Abdominal Pain Pain location: LUQ and RUQ Pain quality: sharp Pain radiates to: Does not radiate Pain severity: Moderate Onset quality: Gradual Duration: 2 days Timing: Constant Progression: Unchanged Chronicity: Recurrent Context comment: Patient rep ort since being discharged had not really been able to eat/drink. Abd pain worsened today with vomiting. Denies fevers. Relieved by: Nothing Worsened by: Nothing Ineffective treatments: [place]. Associated symptoms: nausea and vomiting Associated symptoms: no fever Past Medical History/Immunizations: Past Medical History: Diagnosis Date Aphonia 04/13/2019 Asthma Coronavirus infection 2019 Hx of laryngectomy 07/14/2018 Hyponatremia Leukocytosis Neck infection 08/11/2018 Other chronic pancreatitis Squamous cell cancer of larynx Thyroid disease Tracheostomy in place Tetanus received in last 5 years: Yes Childhood immunizations: Up-to-date Allergies: Allergies Allergen Reactions Bactrim [Sulfamethoxazole-Trimethoprim] Rash Iodine And Iodide Containing Products Nausea On ly Penicillins Hives and Rash Other reaction(s): Unknown - See comments Ampicillin Unknown - See comments Levofloxacin Hives and Rash Past Social History: Tobacco Use Former Smokeless Tobacco: Never used smokeless tobacco . Comments: .5 PPD X >30 yrs Alcohol Use Not Currently. Comments: 1/5th of liqour per week Drug Use Yes; Marijuana. Past Surgical History: Past Surgical History: Procedure Laterality Date ENDOSCOPIC RETROGRADE CHOLANGIOPANCRETOGRAPHY N /A 01/05/2021 Surgeon: Sadiq Napier MD; Location: [facility] OR Location ESOPHAGEAL DILATATION N/A 02/11/2020 Surgeon: Fan Espinal MD; Location: [facility] OR Location ESOPHAGOGASTRODUODENOSCOPY N/A 01/20/2020 Surgeon: Fan Espinal MD; Location: [facility] OR Location ESOPHAGOGASTRODUODENOSCOPY N/A 02/01/2020 Surgeon: Sadiq Napier MD; Location: Endoscopy () OR Location ESOPHAGOGASTRODUODENOSCOPY N/A 02/11/2020 Surgeon: Fan Espinal MD; Location: [facility] OR Location GASTROSTOMY INTRAOPERATIVE CHOLANGIOGRAM N/A 02/15/2020 Surgeon: Cindy Rodriguez MD; Location: [facility] OR Location LAPAROSCOPIC CHOLECYSTECTOMY N/A 02/15/2020 Surgeon: Cindy Rodriguez MD; Location: [facility] OR Location TRACHEOSTOMY UPPER ULTRASOUND (SHX) N/A 01/29/2020 Surgeon: Brodie Jansen MD; Location: Endos copy () OR Location Review of Systems: Review of Systems Constitutional: Negative. Negative for fever. HENT: Negative. Eyes: Negative. Respiratory: Negative. Breasts: Negative. Cardiovascular: Negative. Gastrointestinal: Positive for abdominal pain, n ausea and vomiting. Genitourinary: Negative. Musculoskeletal: Negative. Skin: Negative. Neurological: Negative. Psychiatric/Behavioral: Negative. Physical Exam: ED Triage Vitals [11/12/22 1850] Weight 81.2 kg (179 lb) Actual or estimated Height BP (!) 147/89 Pulse 81 Resp 18 Temp 37.2 ?C (98.9 ?F) Temp src SpO2 99 % Measured on Physical Exam Vitals and nursing note reviewed. Constitutional: General: He is not in acute distress. Appearance: He is well-deve loped. He is ill-appearing. He is not toxic-appearing. HENT: Head: Normocephalic and atraumatic. Nose: Nose normal. Mouth/Throat: Mouth: Mucous membranes are dry. Cardiovascular: Rate and Rhythm: Normal rate and regular rhythm . Pulses: Normal pulses. Heart sounds: Normal heart sounds. Pulmonary: Effort: Pulmonary effort is normal. No respirat ory distress. Breath sounds: Normal breath sounds. Abdominal: General: Bowel sounds are normal. There is no d istension. Palpations: Abdomen is soft. Tenderness: There is abdominal tenderness. Ther e is no guarding. Musculoskeletal: General: No tenderness or deformity. Normal ran ge of motion. Cervical back: Normal range of motion and neck supple. Skin: General: Skin is warm and dry. Neurological: General: No focal deficit present. Mental Status: He is alert and oriented to pers on, place, and time. Psychiatric: Mood and Affect: Mood normal. Behavior: Behavior normal. Radiology: CT ABDOMEN PELVIS WO CONTRAST Final Result Exam: CT Abdomen and Pelvis without Contrast, 10:00 PM. Ordering Physician: REGIS OBANDO. History: Nausea/vomiting. Pancreatitis, acute, s evere. Technique: CT images of the abdomen and pelvis w as obtained without intravenous contrast. Coronal and sagittal recon structed images were obtained. CT technique and radiation exposure ut ilized ALARA. Technical Quality: Adequate. Comparison: CT abdomen and pelvis 11/04/2022. Findings: CT abdomen: Clear lung bases. Severe calcified atherosclerot ic plaque in the right coronary artery. Prominent distal esophageal wal l thickness measuring 5 mm. The stomach is mildly distended. The duodenum is not dilated. Cholecystectomy clips. No biliary ductal dilatat ion. The liver is not enlarged. Mild nodular hepatic contour from hepatic cirrhosis. Small recannulized umbilical vein. The unenhanced spleen and the right adrenal glan d are normal. Stable minimally enlarged left adrenal gland. No adrena l nodule. Mild peripancreatic fat stranding and edema surr ounding the pancreatic head and uncinate process from mild acute pancreatiti s. Subtle mild focal low attenuation change in the pancreatic head measuring 1.9 x 0.9 cm image 40 series 2.. No pancreatic d uctal dilatation. Normal caliber kidneys, no obstructive uropathy. Unchanged nonobstructing 2 mm calculus in the right kidney. Stable ectasia of the abdominal aorta. Calcified atherosclerotic plaque in the abdominal aorta, and in the iliac and femora l arteries. Enlarged paracaval lymph node posterior to the p ancreas appears to be centrally necrotic, measuring 2.3 x 4.6 cm No pelvic nor inguinal lymphadenopathy. CT pelvis: No dilated bowel loops. Portions of the rectum a nd the colon are not distended. The distal rectal wall measures 1 cm in thickness. Severe sigmoid and moderate descending diverticu losis without acute diverticulitis. Appendix is not identified, no secondary signs t o suggest acute appendicitis. No free intraperitoneal air nor significant free fluid. The stable enlarged prostate gland measuring 4.7 x 6.1 x 4.0 cm mildly indents the urinary bladder. The previously seen urinary bladder wall thickening has resolved. No acute osseous abnormality. IMPRESSION Impression: Mild acute pancreatitis has mildly improved as c ompared to the prior exam. Hepatic cirrhosis. Cholecystectomy. Non obstructing urinary calculus in the right ki dney. Sigmoid and descending diverticulosis without ac hoh diverticulitis. Enlarged prostate gland. AFC: 46149 RL 460 End of report. Electronically signed by Vitaly Currie MD at 2022 11:08 PM Lab Results: Lab Results CBC WITH DIFF - Abnormal Result Value Ref Range WBC 7.83 4.20 - 10.70 10*3/?L RBC 4.80 4.26 - 5.52 10*6/?L HGB 15.7 12.2 - 16.4 g/dL HCT 46.9 38.4 - 49.3 % MCV 97.7 (*) 81.7 - 95.6 fL MCH 32.7 26.1 - 32.7 pg MCHC 33.5 31.2 - 35.0 g/dL RDW-SD 52.8 (*) 38.5 - 51.6 fL RDW-CV 14.6 12.1 - 15.4 % PLT 243 150 - 328 10*3/?L MPV 10.1 9.8 - 13.0 fL NRBC/100 WBC 0.0 0.0 - 10.0 /100 WBCs NRBC x10^3 <0.01 10*3/?L GRAN MAT (NEUT) % 72.2 % IMM GRAN % 0.90 % LYMPH % 14.7 % MONO % 10.0 % EOS % 1.4 % BASO % 0.8 % GRAN MAT x10^3(ANC) 5.66 1.99 - 6.95 10*3/uL IMM GRAN x10^3 0.07 (*) 0.00 - 0.06 10*3/uL LYMPH x10^3 1.15 1.09 - 3.23 10*3/uL MONO x10^3 0.78 0.36 - 1.02 10*3/uL EOS x10^3 0.11 0.06 - 0.53 10*3/uL BASO x10^3 0.06 0.01 - 0.09 10*3/uL BASIC METABOLIC PANEL (NA, K , CL, CO2, GLUCOSE, BUN, CREATININE, CA) - Abnormal NA 141 135 - 145 mmol/L K 3.4 (*) 3.5 - 5.0 mmol/L CL 104 98 - 108 mmol/L CO2 TOTAL 24 23 - 31 mmol/L AGAP 13 2 - 16 BUN 5 (*) 7 - 23 mg/dL GLUCOSE 100 70 - 110 mg/dL CREATININE 0.54 (*) 0.60 - 1.25 mg/dL CALCIUM 8.7 8.6 - 10.6 mg/dL eGFR 159.8 mL/min/1.73m2 LIPASE - Abnormal LIPASE 824 (*) 0 - 220 U/L HEPATIC FUNCTION PANEL (8007 6) (ALB,T.PRO,BILI T,BU/BC,ALT,AST,ALK PHOS) - Normal TOTAL BILI 0.5 0.1 - 1.1 mg/dL BILI UNCON 0.3 0.1 - 1.1 mg/dL BILI CONJ 0.0 0.0 - 0.3 mg/dL T PROTEIN 6.9 6.3 - 8.2 g/dL ALBUMIN 3.9 3.5 - 5.0 g/dL ALK PHOS 98 34 - 122 U/L ALTv 17 5 - 50 U/L AST(SGOT) 16 13 - 40 U/L EKG: If EKG completed, see Procedure Note. Orders and Treatments: Orders Placed This Encounter Procedures CT ABDOMEN PELVIS WO CONTRAST CBC WITH DIFF BASIC METABOLIC PANEL (NA, K, CL, CO2, GLUCOSE, BUN, CREATININE, CA) HEPATIC FUNCTION PANEL (05877) (ALB,T.PRO,BILI T,BU/BC,ALT,AST,ALK PHOS) LIPASE Orders Placed This Encounter Medications FENTanyl PF (SUBLIMAZE (PF)) injection 25 mcg ondansetron (ZOFRAN (PF)) injection 4 mg morpHINE (2 mg/mL) injection 2 mg ondansetron (ZOFRAN (PF)) injection 4 mg NaCl 0.9% (NS) IV infusion 1,000 mL First Provider Eval: ED Events Date/Time Event User Comments 11/12/222020 Medical Screening Begins REGIS OBANDO -- 11/12/222020 First Provider Evaluation REGIS OBANDO -- AdmissionCare Guideline: Pancreatitis - INPT, Inpatient Based on the indications sahra ected for the patient, the bed status of Admit to Inpatient was determined to be MET The following indications we re selected as present at the time of evaluation of the patient: Pancreatitis (acute or 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 [id number]:00 ED COURSE ED Course as of 11/13/22 0046 SatNov 13, [address] Christy silver at [facility] and patient accepted for observation admission. [CH] 0035 [facility] called about delay in transfer. Will be reaching out to hospitals shortly. [CH] SatNov 12, 2022 2330 [facility] called to initiate transfer. [CH] 2324 On reassessment, pain and nausea continues. [CH] 2313 CT ABDOMEN PELVIS WO CONTRAST Impression: Mild acute pancreatitis has mildly improved as c ompared to the prior exam. Hepatic cirrhosis. Cholecystectomy. Non obstructing urinary calculus in the right ki dney. Sigmoid and descending diverticulosis without ac hoh diverticulitis. Enlarged prostate gland. [CH] 2114 HEPATIC FUNCTION PANEL (43012) (ALB,T.PRO,B VENKATA T,BU/BC,ALT,AST,ALK PHOS) normal [CH] 2113 BASIC METABOLIC PANEL (NA, K, CL, CO2, GLUC OSE, BUN, CREATININE, CA)(!) No significant changes [CH] 2113 LIPASE(!) Increasing again [CH] 2108 CBC WITH DIFF(!) No leukocytosis noted [CH] ED Course User Index [CH] MarkellRegis wang, YANELY Diagnosis/Impression as of 11/13/22 0046 Abdominal pain, unspecified abdominal location Acute on chronic pancreatitis Nausea and vomiting, unspecified vomiting type Procedures: Procedures MDM: Medical Decision Making Patient was evaluated for an emergency medical condition related to Abdominal Pain (/) . Differential diagnoses considered by pre senting complaints but not limited to: Abdominal Pain (acute) Bowel Obstruction Diverticulitis (acute) Pancreatitis (acute) Urinary Tract Infection Vomiting. Problems Addressed: Abdominal pain, unspecified abdominal location: acute illness or injury Acute on chronic pancreatiti s: chronic illness or injury with exacerbation, progression, or side effects of treatment Details: Lipase worsening, patient unable to tolerate po well and CT still notes acute pancreatitis but has mildly improved since last admitted Nausea and vomiting, unspecified vomiting type: acute illness or injury Amount and/or Complexity of Data Reviewed External Data Reviewed: labs, radiology and note s. Details: Reviewed prior admission notes and kerry ging Labs: ordered. Decision-making details documente d in ED Course. Radiology: ordered. Decision-making details docu mented in ED Course. Discussion of management or test interpretation with external provider(s): Discussed with Dr. Teradwell, accepted for obs admission Risk Prescription drug management. Parenteral controlled substances. Decision regarding hospitalization. Flowsheet Documentation: Scoring Tools: No data recorded Disposition/Condition: ED Disposition ED Disposition [facility] to IP/Obs Condition -- Comment Accepted to [facility] by Dr. Treadwell Discharge Medications: Patient's Medications START taking these medications No medications on file CONTINUE taking these medications which have NOT CHANGED ALBUTEROL 90 MCG/ACTUATION INHALER Inhale 2 Puffs every 6 (six) hours as needed for Wheezing or Shortness of Breath. ARIPIPRAZOLE 5 MG TABLET Take 1 tablet by mout h in the morning. CREON 12,000-38,000 -60,000 UNIT CAPSULE TAKE ONE CAPSULE BY MOUTH EVERY MORNING , ONE CAPSULE AT NOON AND 1 CAPSULE IN THE EVENING WITH MEALS ESCITALOPRAM OXALATE 20 MG TABLET TAKE ONE TABL ET BY MOUTH EVERY MORNING GABAPENTIN 800 MG TABLET TA KE ONE TABLET BY MOUTH EVERY MORNING , ONE TABLET AT NOON AND 1 TABLET IN THE EVENING HYDROCODONE-ACETAMINOPHEN 5 -325 MG TABLET Take 1 tablet by mouth every 6 (six) hours as needed for Pain (scale 4-6) for up to 7 days. Indications: acute pain KETOCONAZOLE 2 % SHAMPOO Apply to area(s) once daily as needed for Itching. LEVOTHYROXINE 150 MCG TABLET Take 1 tablet by m outh every morning. OMEPRAZOLE 40 MG CAPSULE Ta ke one capsule by mouth twice daily for one week then one capsule by mouth daily START taking Modified Medications as Prescribed No medications on file STOP taking these medications No medications on file Follow-up: Transferred to [facility] Electronically signed by: Regis Obando FNP 11/13/22 0051 Associated attestation - Urszula Baeza MD - 11/14/2022 1:04 AM CDT Addendum I was personally available f or consultation in the Emergency Department during this encounter and patient evaluation by YANELY Obando. 2022-11-12 [facility] 18:36:00-00:00 AdmissionCare Guideline: Pancreatitis - INPT, Inpatient Based on the indications sahra ected for the patient, the bed status of Admit to Inpatient was determined to be MET The following indications we re selected as present at the time of evaluation of the patient: Pancreatitis (acute or chron ic) requiring inpatient care, as indicated by 1 or more of the following: - - Inability to maintain oral hydration (eg, needs IV fluid support) that persists after observation care AdmissionCare documentation entered by: Regis cristobal [facility], 27th edition, [place] 2022 [facility] [employer] [facility] All Rights Reserved. [id number] 2022-11-09 [facility] 11:54:41-00:00 Referral placed Electronically signed by Michelle Justice FNP at 11:54 AM CDT 2022-11-09 Formatting of this note might be differe nt from the original. Opal Abarca RN [facility] 11:17:48-00:00 Spoke with Daniel Atwood. Patient is seeing pain management for neuropathy. Patient has an appt with Dr. Gunter next week, soonest appt he could get in office. Electronically signed by Opal Abarca RN at 0 11/09/2022 11:18 AM CDT 2022-11-09 [facility] 10:47:25-00:00 For what type of pain is he asking for the referral for? Pt has had a recent hospital stay follow up is recommended Electronically signed by Michelle Justice FNP at 10:48 AM CDT 2022-11-09 [facility] 09:51:30-00:00 Please review and sign if appropriate. Referral pended. Electronically signed by Opal Abarca RN at 0 11/09/2022 9:51 AM CDT 2022-11-09 Formatting of this note might be differe nt from the original. Jimbo Campbell [facility] 09:36:19-00:00 Pt called and would like the referral to pain management re-sent . PAUL MCKEON Please advise Electronically signed by Jimbo Campbell at 10/30 9:39 AM CDT 2022-11-09 Formatting of this note might be differe nt from the original. Eligio Blanca [facility] 08:25:24-00:00 Patient has been scheduled for HFU Electronically signed by Eligio Blanca at 08/11 /2023 8:25 AM CDT 2022-11-07 [facility] 13:13:09-00:00 Images from the original note were not included. Anderson Francisco, RN to [facility] 11/07/22 12:27 PM Please contact pt to assist with scheduling a 1 week HFU appointment. Pt discharged 11/06/2022. Thank you. 2022-11-07 Formatting of this note might be differe nt from the original. Rama Fontenot [facility] 13:02:01-00:00 Please assist - routed to wrong clinic Electronically signed by Rama Fontenot at 11/07 1:02 PM CDT 2022-11-07 Formatting of this note is different fro m the original. Anderson Francisco RN [facility] 12:26:40-00:00 TRANSITIONAL CARE MANAGEMENT ASSESSMENT 11/07/2022 Jimmie Pugh [id number] Jimmie Pugh is a 52 y ear old /White male was admitted on 11/04/22 to [facility]. He was discharged on 11/06/22 with discharge disposition of HR- Routine Discharge. Admitting Physician: Deric Santos Discharge Diagnosis: Acute on chronic pancreatitis: -- Advance diet to clear liquids patient tolerat ing well at this time -- Continue with IV fluid hydration -- Will order Zofran for dax n control as well as [place] and will switch to morphine as needed for pain 7-10 -- AM lipid panel -- Will continue with Creon 2. Asthma: stable -- Will resume albuterol as needed 3. Hypothyroidism -- Will continue with levothyroxine 4. Bipolar disease -- Will resume escitalopram, gabapentin, aripipr azole 5. GERD: -- will resume omeprazole Linked Episodes Type: Episode: Status: Noted: Resolved: Last upd ate: Updated by: TRANSITION OF CARE TCM Active 11/06/2022 12:18 PM Anderson Francisco, RN Comments: TCM Ekh-pyhb-ub-face outreach documentation: Discharge Assessment Chart Assessed: 11/07/22 TCM Outreach Completed: 11/07/22 Do you have a few minutes to speak with me about how you are doing at home?: Yes (Spoke with pt's significant other. States pt is doing ok.) Discharge Instructions Do you understand your at-home instructi ons?: Yes (No questions at this time.) Medications Have you filled your prescriptions and do you tamayo ve them in your home? : Yes Do you know how to take your medications?: Yes ( No questions.) Can you provide me with the names or descriptions of any [id number] or supplements you are currently taking?: Patient declined Supplies Did you receive applicable home medical supplies /equipment?: N/A Follow Up Appointment Has a follow up appointment been scheduled?: No May I assist with scheduling this appointment?: Unable to schedule-referred to HFU Team (Message routed to clinic PSS.) Do you have any questions about your follow up a ppointments?: No Are you able to get to your appointment? Who aram l be taking you?: Yes (SO) Home Health Assistance Has the home health nurse contacted you since yo u've been home?: N/A Survey - Recognition Is there anything you would like to share about your recent hospitalization, or anyone you would like to recognize?: No Do you have any suggestions for improvement?: No Do you have any other questions or concerns at t his time?: No Future Appointments: Future Appointments Provider Department Dept Phone 01/11/2023 2:00 PM Alex Gunter MD [facility] [phone] Electronically signed by Anderson Francisco RN a t 11/07/2022 12:27 PM CDT 2022-11-06 Formatting of this note might be differe nt from the original. Bette Salinas RN [facility] 13:38:29-00:00 Problem: Pain Goal: Control of pain at or below patient's docu mented comfort goal Outcome: Adequate for discharge Problem: Discharge Planning Goal: Adequate for discharge Outcome: Adequate for discharge Goal: Effective communication Outcome: Adequate for discharge Problem: Falls, Risk of Goal: Absence of falls Outcome: Adequate for discharge Problem: Skin integrity Impaired (Risk or Actual ) Goal: Prevention of new skin breakdown Outcome: Adequate for discharge Problem: Venous Thromboembolism, (actual or risk of) Goal: Absence of venous thromboembolism (Risk) Outcome: Adequate for discharge Electronically signed by Bette Salinas RN a t 11/06/2022 1:38 PM T 2022-11-06 Formatting of this note might be differe nt from the original. Anabela Melton RN [facility] 02:13:58-00:00 Problem: Pain Goal: Control of pain at or below patient's docu mented comfort goal Outcome: Progressing as expected Problem: Discharge Planning Goal: Adequate for discharge Outcome: Progressing as expected Goal: Effective communication Outcome: Progressing as expected Problem: Falls, Risk of Goal: Absence of falls Outcome: Progressing as expected Problem: Skin integrity Impaired (Risk or Actual ) Goal: Prevention of new skin breakdown Outcome: Progressing as expected Problem: Venous Thromboembolism, (actual or risk of) Goal: Absence of venous thromboembolism (Risk) Outcome: Progressing as expected T 2022-11-05 Formatting of this note might be differe nt from the original. Mela Mei RN [facility] 16:04:29-00:00 Problem: Pain Goal: Control of pain at or below patient's docu mented comfort goal Outcome: Progressing as expected Problem: Discharge Planning Goal: Adequate for discharge Outcome: Progressing as expected Goal: Effective communication Outcome: Progressing as expected Problem: Falls, Risk of Goal: Absence of falls Outcome: Progressing as expected Problem: Skin integrity Impaired (Risk or Actual ) Goal: Prevention of new skin breakdown Outcome: Progressing as expected Problem: Venous Thromboembolism, (actual or risk of) Goal: Absence of venous thromboembolism (Risk) Outcome: Progressing as expected Electronically signed by Mela Mei RN at 4:04 PM [facility] 2022-11-05 [facility] 04:47:51-00:00 Problem: Pain Goal: Control of pain at or below patient's docu mented comfort goal Outcome: Progressing as expected Problem: Discharge Planning Goal: Adequate for discharge Outcome: Progressing as expected Goal: Effective communication Outcome: Progressing as expected Problem: Falls, Risk of Goal: Absence of falls Outcome: Progressing as expected Problem: Skin integrity Impaired (Risk or Actual ) Goal: Prevention of new skin breakdown Outcome: Progressing as expected Problem: Venous Thromboembolism, (actual or risk of) Goal: Absence of venous thromboembolism (Risk) Outcome: Progressing as expected T 2022-11-04 Formatting of this note might be differe nt from the original. Marce Pardo RN [facility] 18:38:56-00:00 Report given to JEAN Azevedo Electronically signed by Marce Pardo RN a t 11/04/2022 6:39 PM CDT 2022-11-04 [facility] 12:32:12-00:00 Pt arrived via private car w ith c/o abd pain, vomiting and diarrhea x2 days. 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 male with h/o laryng eal cancer(trach.), chronic pancreatitis, now with mid abdominal pain with n/v x 2 days. Past Medical History/Immunizations: Past Medical History: Diagnosis Date Aphonia 04/13/2019 Asthma Coronavirus infection 2019 Hx of laryngectomy 07/14/2018 Hyponatremia Leukocytosis Neck infection 08/11/2018 Other chronic pancreatitis Squamous cell cancer of larynx Thyroid disease Tracheostomy in place Tetanus received in last 5 years: Unknown Childhood immunizations: Up-to-date Allergies: Allergies Allergen Reactions Bactrim [Sulfamethoxazole-Trimethoprim] Rash Iodine And Iodide Containing Products Nausea On ly Penicillins Hives and Rash Other reaction(s): Unknown - See comments Ampicillin Unknown - See comments Levofloxacin Hives and Rash Past Social History: Tobacco Use Former Smokeless Tobacco: Never used smokeless tobacco . Comments: .5 PPD X >30 yrs Alcohol Use Not Currently. Comments: 1/5th of liqour per week Drug Use Yes; Marijuana. Past Surgical History: Past Surgical History: Procedure Laterality Date ENDOSCOPIC RETROGRADE CHOLANGIOPANCRETOGRAPHY N /A 01/05/2021 Surgeon: Sadiq Napier MD; Location[facility] ESOPHAGEAL DILATATION N/A 02/11/2020 Surgeon: Fna Espinal MD; Location: [facility] OR Location ESOPHAGOGASTRODUODENOSCOPY N/A 01/20/2020 Surgeon: Fan Espinal MD; Location: [facility] OR Location ESOPHAGOGASTRODUODENOSCOPY N/A 02/01/2020 Surgeon: Sadiq Napier MD; Location: Endoscopy () OR Location ESOPHAGOGASTRODUODENOSCOPY N/A 02/11/2020 Surgeon: Fan Espinal MD; Location: A [facility] OR Location GASTROSTOMY INTRAOPERATIVE CHOLANGIOGRAM N/A 02/15/2020 Surgeon: Cindy Rodriguez MD; Location: [facility] OR Location LAPAROSCOPIC CHOLECYSTECTOMY N/A 02/15/2020 Surgeon: Cindy Rodriguez MD; Location: [facility] OR Location TRACHEOSTOMY UPPER ULTRASOUND (SHX) N/A 01/29/2020 Surgeon: Brodie Jansen MD; Location: Endos copy () OR Location Review of Systems: Review of Systems Constitutional: Positive for fatigue. Negative f or chills and fever. HENT: Negative. Eyes: Negative. Respiratory: Negative. Breasts: Negative. Cardiovascular: Negative. Gastrointestinal: Positive f or abdominal pain, diarrhea, nausea and vomiting. Negative for abdominal distention, blood in stool and constipation. Musculoskeletal: Negative. Skin: Negative. Neurological: Negative. Psychiatric/Behavioral: Negative. Endocrine: Endocrine negative Physical Exam: ED Triage Vitals [11/04/22 1233] Weight 80.3 kg (177 lb) Actual or estimated Estimated by patient/family report Height BP (!) 143/92 Pulse 84 Resp 18 Temp 37.2 ?C (99 ?F) Temp source Oral SpO2 92 % Measured on Room air Physical Exam Vitals and nursing note reviewed. Constitutional: General: He is not in acute distress. Appearance: Normal appearan ce. He is not ill-appearing, toxic-appearing or diaphoretic. HENT: Head: Normocephalic. Mouth/Throat: Mouth: Mucous membranes are dry. Eyes: Pupils: Pupils are equal, round, and reactive t o light. Cardiovascular: Rate and Rhythm: Normal rate. Pulses: Normal pulses. Pulmonary: Effort: No respiratory distress. Abdominal: Palpations: Abdomen is soft. There is no mass. Tenderness: There is abdomi nal tenderness. There is no right CVA tenderness, left CVA tenderness, guarding or rebound. Hernia: No hernia is present. Musculoskeletal: General: Normal range of motion. Skin: General: Skin is warm. Capillary Refill: Capillary refill takes less t rojas 2 seconds. Neurological: General: No focal deficit present. Mental Status: He is alert and oriented to pers on, place, and time. Psychiatric: Mood and Affect: Mood normal. Behavior: Behavior normal. Radiology: CT ABDOMEN PELVIS WO CONTRAST Final Result CT abdomen and pelvis without contrast History: Abdominal pain, acute, nonlocalized Iod ine allergy, h/o Pancreatitis Technique: CT dose reduction by ALARA principles . Multiple contiguous axial CT images of the abdomen and pelvis were o btained without contrast. Sagittal and coronal reformatted images were con structed. Prior: None Findings: The lung bases are clear. The visualized heart i s normal in size. Coronary atherosclerosis is present. The liver is normal in size. No intrahepatic mary lou iary dilatation. Cholecystectomy clips are present. The pancreati c head appears ill-defined with some inflammatory stranding that tracks int o Morison's pouch. Findings may represent pancreatitis. No inflammatory cartwright ges of the body or tail of the pancreas. There is mild chronic perinephric stranding/scar ring of the kidneys. No hydronephrosis bilaterally. There is a 1 mm pun ctate nonobstructing stone of the right kidney. There is mild calcified nava que of the aorta. The aorta demonstrates no aneurysm. There is mild diffuse prominence of the wall of the bladder which may be secondary to incomplete distention or cystitis. Mild hypertrophy of the bladder wall as result of partial bladder outlet obstruction from a mildly enlarged prostate gland also cannot be excluded. There is no free fluid. The stomach is normal. The second portion of the duodenum demonstrates inflammatory wall thickening which may be second tawana to duodenitis or as a result of adjacent pancreatitis. There is minima l fluid within small bowel loops in the lower abdomen without significant d ilatation and no wall thickening. Findings are nonspecific. Enteritis cannot be excluded. There is mild diverticulosis of the colon withou t diverticulitis. The appendix not visualized. There is no inflammator y changes in the region of the cecum. The included bones are intact. IMPRESSION Impression: Inflammatory thickening seen at the second porti on of the duodenum with ill-defined pancreatic head. Findings may repres ent duodenitis and/or pancreatitis. Correlation with laboratory values recommended. Endoscopy may be warranted. There is minimal fluid within small bowel loops in the lower abdomen without significant dilatation and no wall thick ening. Findings are nonspecific. Enteritis cannot be excluded. There is mild diverticulosis of the colon withou t diverticulitis. There is a 1 mm punctate nonobstructing stone of the left kidney. There is mild diffuse prominence of the wall of the bladder which may be secondary to incomplete distention or cystitis. Mild hypertrophy of the bladder wall as result of partial bladder outlet obstruction from a mildly enlarged prostate gland also cannot be excluded. HS:Y [facility] 8120 Ordering physician: CAPRICE HODGE Electronically signed by Efrain Acosta MD at 11/04 2:02 PM Lab Results: Lab Results CBC WITH DIFF - Abnormal Result Value Ref Range WBC 10.86 (*) 4.20 - 10.70 10*3/?L RBC 5.22 4.26 - 5.52 10*6/?L HGB 17.2 (*) 12.2 - 16.4 g/dL HCT 50.9 (*) 38.4 - 49.3 % MCV 97.5 (*) 81.7 - 95.6 fL MCH 33.0 (*) 26.1 - 32.7 pg MCHC 33.8 31.2 - 35.0 g/dL RDW-SD 52.0 (*) 38.5 - 51.6 fL RDW-CV 14.9 12.1 - 15.4 % PLT 256 150 - 328 10*3/?L MPV 9.4 (*) 9.8 - 13.0 fL NRBC/100 WBC 0.0 0.0 - 10.0 /100 WBCs NRBC x10^3 <0.01 10*3/?L GRAN MAT (NEUT) % 83.0 % IMM GRAN % 0.70 % LYMPH % 8.0 % MONO % 7.6 % EOS % 0.3 % BASO % 0.4 % GRAN MAT x10^3(ANC) 9.01 (*) 1.99 - 6.95 10*3/u L IMM GRAN x10^3 0.08 (*) 0.00 - 0.06 10*3/uL LYMPH x10^3 0.87 (*) 1.09 - 3.23 10*3/uL MONO x10^3 0.83 0.36 - 1.02 10*3/uL EOS x10^3 0.03 (*) 0.06 - 0.53 10*3/uL BASO x10^3 0.04 0.01 - 0.09 10*3/uL COMP. METABOLIC PANEL (92385) - Abnormal NA 135 135 - 145 mmol/L K 4.2 3.5 - 5.0 mmol/L CL 100 98 - 108 mmol/L CO2 TOTAL 26 23 - 31 mmol/L AGAP 9 2 - 16 BUN 8 7 - 23 mg/dL GLUCOSE 126 (*) 70 - 110 mg/dL CREATININE 0.49 (*) 0.60 - 1.25 mg/dL TOTAL BILI 1.1 0.1 - 1.1 mg/dL CALCIUM 9.1 8.6 - 10.6 mg/dL T PROTEIN 7.6 6.3 - 8.2 g/dL ALBUMIN 4.1 3.5 - 5.0 g/dL ALK PHOS 113 34 - 122 U/L ALTv 21 5 - 50 U/L AST(SGOT) 41 (*) 13 - 40 U/L eGFR 178.7 mL/min/1.73m2 URINALYSIS - Abnormal APPEARANCE Clear Clear COLOR Yellow Yellow PH 6.0 4.8 - 8.0 SP GRAVITY 1.026 1.003 - 1.030 GLU U QUAL Normal Normal BLOOD Negative Negative KETONES 20 mg/dL (*) Negative PROTEIN 30 mg/dL (*) Negative UROBILIN 2.0 mg/dL (*) Normal BILIRUBIN Negative Negative NITRITE Negative Negative LEUK CAMMIE Negative Negative RBC/HPF 8 (*) 0 - 3 HPF WBC/HPF 1 0 - 5 HPF BACTERIA Few (*) Negative MUCOUS Marked (*) Negative LPF SQ EPITH <1 HPF HYAL CAST 1 <=2 LPF LIPASE - Abnormal LIPASE 754 (*) 0 - 220 U/L TROPONIN I ETHANOL HEPATIC FUNCTION PANEL (62152) (ALB,T.PRO,BILI T ,BU/BC,ALT,AST,ALK PHOS) EKG: If EKG completed, see Procedure Note. Orders and Treatments: Orders Placed This Encounter Procedures CT ABDOMEN PELVIS WO CONTRAST CBC WITH DIFF COMP. METABOLIC PANEL (58596) URINALYSIS LIPASE TROPONIN I ETHANOL HEPATIC FUNCTION PANEL (11355) (ALB,T.PRO,BILI T,BU/BC,ALT,AST,ALK PHOS) LIPID PANEL (89416)(TOTAL CHOLESTEROL, TRIGLYCE RIDES, HDL) Orders Placed This Encounter Medications ondansetron (ZOFRAN (PF)) injection 8 mg NaCl 0.9% (NS) bolus infusion 1,000 mL morpHINE (4 mg/mL) injection 6 mg NaCl 0.9% (NS) bolus infusion 1,000 mL famotidine (PEPCID (PF)) injection 20 mg morpHINE (4 mg/mL) injection 4 mg enoxaparin (LOVENOX) injection 40 mg lactated ringers IV infusion 1,000 mL HYDROcodone-acetaminophen (NORCO 5) 5-325 mg ta blet 1 tablet FENTanyl PF (SUBLIMAZE (PF)) injection 50 mcg ondansetron (ZOFRAN (PF)) injection 4 mg First Provider Eval: ED Events None No notes of EC Admission Criteria type on file. ED COURSE Diagnosis/Impression as of 11/04/22 1708 Abdominal pain, unspecified abdominal location Procedures: EKG-12 Lead ONCE Date/Time: 11/04/2022 1:44 PM Performed by: Caprice Hodge MD Authorized by: Caprice Hodge MD Previous ECG: Previous ECG: Unavailable Interpretation: Interpretation: normal Rate: ECG rate: 74 ECG rate assessment: normal Rhythm: Rhythm: sinus rhythm Ectopy: Ectopy: none QRS: QRS axis: Normal QRS intervals: Normal Comments: Normal EKG MDM: Medical Decision Making Amount and/or Complexity of Data Reviewed Labs: ordered. Radiology: ordered. Risk Prescription drug management. Parenteral controlled substances. A) Acute on Chronic Pancreatitis, Dehydration Disposition/Condition: Admit, IVF's, Pain contro l ,serial exam and labs. ED Disposition ED Disposition Admit - Observation Condition -- Comment Is (or was) this a planned re-admission?: No Treatment Team: [facility] [[id number]] Is this patient COVID positive or a patient und er investigation (PUI)?: No Discharge Medications: Patient's Medications START taking these medications No medications on file CONTINUE taking these medications which have NOT CHANGED ALBUTEROL 90 MCG/ACTUATION INHALER Inhale 2 Puffs every 6 (six) hours as needed for Wheezing or Shortness of Breath. ARIPIPRAZOLE 5 MG TABLET Take 1 tablet by mouth in the morning. ATORVASTATIN 80 MG TABLET Take 80 mg by mouth a t bedtime. BUPROPION HCL, SMOKING DETE R, 150 MG TB12 Take 1 tablet by mouth in the morning. Then in 3 days take one tablet by mouth twice a day, if the dose is too high just take once daily CREON 12,000-38,000 -60,000 UNIT CAPSULE TAKE ONE CAPSULE BY MOUTH EVERY MORNING , ONE CAPSULE AT NOON AND 1 CAPSULE IN THE EVENING WITH MEALS ESCITALOPRAM OXALATE 20 MG TABLET TAKE ONE TABL ET BY MOUTH EVERY MORNING GABAPENTIN 800 MG TABLET TA KE ONE TABLET BY MOUTH EVERY MORNING , ONE TABLET AT NOON AND 1 TABLET IN THE EVENING KETOCONAZOLE 2 % SHAMPOO Apply to area(s) once daily as needed for Itching. LEVOTHYROXINE 150 MCG TABLET Take 1 tablet by m outh every morning. OMEPRAZOLE 40 MG CAPSULE Ta ke one capsule by mouth twice daily for one week then one capsule by mouth daily START taking Modified Medications as Prescribed No medications on file STOP taking these medications No medications on file Follow-up: Electronically signed by: Caprice Hodge MD 11/04/22 0293 Electronically signed by Caprice Hodge MD at 0 11/04/2022 5:08 PM CDT 2022-10-31 Formatting of this note is different from the or iginal. [facility] 10:39:37-00:00 Images from the original note were not included. Please review and sign if appropriate. Name from pharmacy: ESCITALOPRAM 20 MG TABLET Will file in chart as: ESCITALOPRAM OXALATE 20 mg tablet Sig: TAKE ONE TABLET BY MOUTH EVERY MORNING Disp: 90 tablet Refills: 1 (Pharmacy requested: Not specified) Start: 10/31/2022 Class: eRX For: Alcohol-induced acute pancreatitis, unspecified complication status; Anxiety and depression Last ordered: 11 months ago (11/27/2021) by YANELY Huddleston Last refill: 03/06/2022 Rx #: [id number] Psychiatry: Antidepressants Failed 10/31/2022 1 0:14 AM Protocol Details Manual Review: Verify n o changes in dose in the last 3 months Valid encounter within last 12 months To be filled at: ANGELITA DOMINGUEZ [id number] [place] [id number] [facility] [address] Recent Visits Date Type Provider Dept 10/11/22 Office Visit Ross Gunter MD [facility] 09/28/22 Office Visit Ross Gunter MD [facility] 08/28/22 Office Visit Michelle Justice FNP [facility] 02/02/22 Office Visit Chetna Barnard FNP [facility] 11/27/21 Office Visit Michelle Justice FNP [facility] 08/09/21 Office Visit Lucy Shaffer MD [facility] 07/11/21 Office Visit Lucy Shaffer MD [facility] Showing recent visits within past 540 days with a meds authorizing provider and meeting all other requirements Future Appointments Date Type Provider Dept 01/11/23 Appointment Ross Gunter MD [facility] Showing future appointments within next 150 days with a meds authorizing provider and meeting all other requirements Electronically signed by Piper Manzano MA at 10:40 AM T 2022-10-24 [facility] 08:17:05-00:00 Contacted patient to let him know of medication change. T 2022-10-23 [facility] 21:28:41-00:[address] Lu iRncon T 2022-10-23 Formatting of this note might be differe nt from the original. Jocelyn Garces LVN [facility] 16:30:10-00:00 Confirmed per patient/fiance , he is not taking Chantix and does prefer to begin Wellbutrin. Electronically signed by Jocelyn Garces LVN at 0 10/23/2022 4:32 PM T 2022-10-23 Formatting of this note might be differe nt from the original. Kasey Soto [facility] 12:52:55-00:00 Pt fiviraj is calling back had miss call Electronically signed by Kasey Soto at 12:53 PM T 2022-10-22 [facility] 17:25:57-00:00 LVM to callback on 10/22/2022 Electronically signed by Jocelyn Garces LVN at 0 10/22/2022 5:26 PM T 2022-10-22 [facility] 16:51:52-00:00 We will need to verify with the patient before switching. Please confirm with him and get back to me. Dr. Lu Rincon T 2022-10-22 [facility] 12:10:27-00:00 Please review and advise. 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 - varenicline (CHANTIX) 1 mg tablet; Take 1 tablet by mouth in the morning and 1 tablet in the evening Electronically signed by Jocelyn Garces LVN at 0 10/22/2022 12:11 PM CDT 2022-10-22 Formatting of this note might be differe nt from the original. Piper Palafox [facility] 10:26:41-00:00 Patient's fiance is calling requesting that the prescription for CHANTIX to be switched to Wellbutrin. She states he is concerned about the side effects. Electronically signed by Piper Palafox at 0 10/22/2022 10:28 AM CDT 2018-07-[address] [facility] 18:10:33-00:00 OPERATIVE/PROCEDURE REPORT JIMMIE PUGH FACILITY: [facility] Billing #: [id number] Room: [facility] MR #: [id number] : 1970 DATE OF PROCEDURE: 07/14/2018 SURGEON: Jennifer Fraire MD PREOPERATIVE DIAGNOSIS: Dysfunctional larynx. POSTOPERATIVE DIAGNOSIS: Dysfunctional larynx. PROCEDURES PERFORMED: 1. Total laryngectomy. 2. Re-implantation of left superior parathyroid gland. CARPENTER CRADLE AND DOLLY: Ms. Jesenia Moser PA-C. INDICATIONS FOR THE PROCEDURE: The patient is a 48-year-old male with a history of laryngeal carcinoma, who underwent chemoradiation therapy, completed in 2018. 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 He was found to have progressive dys pnea as well as progressive fibrosis of his larynx. The patie nt was taken to the operating room where he underwent emergen cy tracheostomy. Given his trach dependence and dys functional larynx, decision was made to perform total laryn gectomy. PROCEDURE IN DETAIL: The patient was informed of his condition as well as details of procedure including its ri sks, benefits, alternatives. The patient expressed good underst anding of the procedure and subsequently signed informed conse nt. He was then taken to the operating room, placed on the operating table in supine position. He was induced using general anesthesia by Anesthesia Service and his tracheostomy tube was switched out for a #7 wire reinforced endotracheal tube. He w as prepped and draped in usual sterile fashion. A time-out was performed with procedure and site are verified. An Apron incisi on was fashioned with 1 cm margins around the tracheal stoma. Incision was made using Bovie cautery. Subplatys mal flaps were elevated superiorly above the level of the hyoid bone and inferiorly to the level of the clavicles. The investing layer of deep cervical fascia was incised along the anterior border of sternocleidomastoid muscl e. This incision was carried down to the level of the gr eat vessels. The omohyoid muscle was identified and subsequen tly ligated laterally. The sternohyoid and sternothyroid mus cles were subsequently ligated to the inferior aspects. Th is allowed for identification of the thyroid gland. The right t hyroid was sharply dissected off the anterior tracheal wall and reflected laterally. This allowed for preservation of the parathyroid glands. The superior thyroid pedicle was traced superiorly to take off the external carotid artery. The investing layer of deep cervical fascia at t he inferior border of the submandibular gland was incised us ing Bovie cautery. The posterior belly of digastric was id entified. This allowed for identification of the hypogloss al nerve using blunt dissection. Next, the contralateral SCM wa s released using Bovie cautery. The great vessels were iden tified and the omohyoid muscle was ligated laterally. The olea ohyoid and sternothyroid muscles were also ligated to the i nferior extent. This allowed for complete exposure of the anter ior tracheal wall. The left thyroid lobe was sharply dissecte d off the tracheal wall. During this dissection, the left superior parathyroid gland was identified and appeared to be devascularized. After confirmation of frozen sec tion, the left superior parathyroid gland was minced and re-imp lanted into the left SCM muscle. Next, the left posterior belly digastric was identified and the left hypoglossal nerve was id entified using blunt dissection. The suprahyoid musculature was then released off the superior aspect of the hyoid bone. The g reater horns bilaterally were skeletonized with great care us ing sharp dissection. The constrictor muscles were sharply dissected o ff the thyroid cartilage bilaterally. Using a [place] elevator, betsy rubio piriform sinus mucosa was bluntly dissected off the inner surface of the cartilage. An incision was made between rings two and three and beveled superiorly using curved Marquez scissors. Using sha rp dissection, the common libertarian wall was dissected and the xin nx was dissected off the esophagus. [place] was placed into the patient's oral cavity into the vallecula. Incision was made in the vallecula us ing a #15 blade scalpel. The epiglottis was identified and subsequently grasped and retracted externally. This allowed f or mucosal incisions of the pharynx to be made using Metzen christin scissors. The piriform sinuses were spared and the pharynx cuts were made along the lateral aspect of the larynx. The xin nx was subsequently excised whole and intact and submit meng for frozen section pathology. Frozen section revealed no ev idence of malignancy of the pharyngeal or tracheal margins . Meticulous hemostasis was obtained using bipolar cautery. Betsy rubio case was then handed over to Dr. Ivey for free flap re-c onstruction. FINDINGS: Patient exhibited with a fibrotic xin nx with significant fibrosis of the level of the glottic larynx. Frozen section pathology reveals no evidence of malignancy at the pharyngeal or tracheal margins. ESTIMATED BLOOD LOSS: 20 mL. COMPLICATIONS: None. DISPOSITION: Case handed over to Dr. Ivey. INTRAVENOUS FLUIDS: Please see Anesthesia record . URINE OUTPUT: Please see Anesthesia record. CONDITION: Good. PEDRITO/MODL /[id number] 2018-06-[address] [facility] 23:01:31-00:00 OPERATIVE/PROCEDURE REPORT JIMMIE PUGH FACILITY: [facility] Billing #: [id number] Room: [address] [place] [address] MR #: [id number] : 1970 DATE OF PROCEDURE: 06/09/2018 SURGEON: Jennifer Fraire MD PREOPERATIVE DIAGNOSIS: Laryngeal mass. POSTOPERATIVE DIAGNOSES: 1. Dysfunctional larynx. 2. Left pneumothorax. PROCEDURES PERFORMED: 1. Direct laryngoscopy and biopsy. 2. Tracheostomy. 3. Left chest tube placement. 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 He underwent chemoradiation therapy comp leted in September 2017. Since his definitive therapy, the patient has been experiencing progressive dyspnea as well as prog ressive dysphonia to the point where he is now aphonic. The patient was referred to our service due to progressive d yspnea and inspiratory stridor. On evaluation in the clinic , the patient appeared to have an adequate airway. However, he exhibited left laryngeal paralysis as well as irregular ti ssue arising from the left supraglottic larynx. The patient i s offered total laryngectomy. However, prior to total xin ngectomy, he is now taken to the operating room for diagnosti c direct laryngoscopy. PROCEDURE IN DETAIL: The patient was informed of his condition as well as details of the procedure including it s risks, benefits, and alternatives. Given the patient's marginal airway, the patient was well-informed of the pos sibility of tracheostomy. He expressed good understanding an d agreed. He was then taken to the operating room and placed on the operating table in supine position. The patient was then induced by the Anesthesia Service using general anesthesia. The patient was able to be easily MAP ventilated . After confirmation of MAP ventilation, decision was ma de by the Anesthesia Service to paralyze the patient. Dire ct laryngoscopy was performed using CMAC and adequa te visualization of the supraglottic and glottic ai rway was obtained. A 6-0 endotracheal tube was attempted to be passed. However, there was significant difficulty. As a result to avoid significant trauma to the supraglottic lar ynx, the patient was then bag masked again. Second attemp t via direct laryngoscopy and passage of 5-0 endotracheal tub e was performed. However, again the 5-0 endotracheal t ube was unable to be passed. At this point, the patient was exh ibiting increased difficulty being mask ventilated. As a result, decision was made to perform tracheostomy. The p atient was prepped in sterile fashion. Using Bovie cautery, the patient's previous tracheostomy incision site was opened. Sharp dissection was performed using Bovie cautery wicho n to the airway. A fibrous band was identified just along the superficial aspect of the trachea. Using a #15 b lade scalpel, this fibrous band was entered. Using Marquez scisso rs, the tracheal incision was widened in all directions. There was significant fibrosis of this tracheal opening. I t was very difficult to use a trach palletizer operator to widen the o pening. With good control of the airway, a 5-0 endotracheal t ube was passed through the tracheostomy incision site. Adequate ventilation was observed and tidal volume appeared to be stephanie quate. The patient's oxygenation returned to 100%. Given th e fact that the patient is exhibiting a significant cuff therese k given the size of the endotracheal tube, decision was made to up size to a 6-wire reinforced tube. After upsizing to a 6- wire reinforced tube after progressive dilation of th e tracheal opening, again tidal volumes did not appear to b e adequate, although the patient was oxygenating well. Next, given the severe fibrosis of the tracheal opening, the dec ision was made to convert to a 4-0 Shiley tracheostomy tube giv en the rigidity of the tube. A 4-0 tracheostomy tube was easily passed into the airway and the patient again was observed to be ventilating well. Despite maintaining good tidal volumes and having good oxygen saturation, it was observed that the luis ent's peak airway pressures were starting to climb. Given t he fact that the patient was now ventilating through a very s mall tube, the decision was performed to up size to a #6 Shiley tracheostomy tube. The patient was successfully upsized in co nfirmation of the #6 Shiley tracheostomy tube placement was ma de using a flexible bronchoscope and the eusebio was easily visualized. There appear to be no obstruction within the ta n stem bronchi. At this point, airway resistance continued to b e high. Auscultation of the patient's lung however revea led absent breath sounds on the left. The patient began exh ibiting progressive decline in his tidal volumes as well as oxygenation. As a result, decision was made to p erform a left chest tube. The patient's left chest was prepped in usual sterile fashion. An incision was made over the i ntercostal space between ribs 4 and 5. Incision was made us ing Bovie cautery and carried down to the level of the 5th rib. Incision in intercostal musculature was made using Bovie cautery. A Sarrot was then used to bluntly penetrate to the thoracic cavity. The Sarrot was used to spread open this incision. At this point, the patient had significant decline of his peak airway pressures and increase in his tidal volum e. A 20-Haitian chest tube was then placed. At this point, [facility] arrived and performed securing of the ch est tube. After securing of the chest tube, direct laryngo scopy was performed. A Deniz laryngoscope was passed f rom the patient's oral cavity towards larynx. Notably, g iven the patient's mild retrognathia, visualization of th e supraglottic larynx was somewhat difficult. The patient exhib ited severe edema of the supraglottic airway as well as mark re fibrosis at the level of the glottic airway. The glottic ope laura appear to be only approximately about 4 mm in diameter. Mu ltiple biopsies of the left supraglottic larynx were ob tained. Hemostasis obtained using Afrin-soaked pledgets. The patient was subsequently turned back to anesthesia. He w as then transferred to surgical ICU in stable condition. DISPOSITION: ICU. CONDITION: Stable. FINDINGS: The patient exhibited significant narr owing at the level of the glottic airway. Intraoperatively, t he patient was discovered to have a left pneumothorax and a carrie st tube was placed. SPECIMENS: Left supraglottic larynx. ESTIMATED BLOOD LOSS: 20 mL. COMPLICATIONS: None. DEVICES USED: A #6 Shiley tracheostomy tube. PEDRITO/MODL /[id number]
[2022-12-11] MEDS ORDERED: ONDANSETRON 4 MG/2 ML VIAL ONE (19:09)
[2022-12-11] MEDS ORDERED: NA CHLORIDE 0.9% 2,000 ML ONE (19:09)
[2022-12-11] MEDS ORDERED: MORPHINE 4 MG/ML SYR ONE (19:09)
[2022-12-11] MEDS ORDERED: FAMOTIDINE 20 MG/2 ML VIAL IV ONE (19:09)
[2022-12-11 19:33] LABS: Absolute Lymphocytes (CBC) 1.1 K/uL (0.7-4.9); Hematocrit 50.5 % (39.6-49.0); Lymphocytes % 8.9 % (15.3-44.8); MCV 92.7 fL (80-100); Platelets 278 thou/uL (152-406); RBC Red Blood Cell Count 5.44 M/uL (4.33-5.43)
[2022-12-11 19:45] LABS: Protime INR 1.16
--- NOTE | 2022-12-11 19:46 | RAD REPORT ---
EXAM DESCRIPTION: RADChest Single View12/11/2022 7:12 pm CLINICAL HISTORY: ABDOMINAL DISTENTION COMPARISON: Chest Single View dated 02/15/2021; Chest Single View dated 09/29/2020; Chest Single View dated 04/06/2019; Chest Single View dated 03/09/2019 TECHNIQUE: Portable AP view of the chest. FINDINGS: The lungs are clear. No pneumothorax or effusion. The cardiomediastinal contours are unre markable. IMPRESSION: No acute cardiopulmonary process.
[2022-12-11 20:01] LABS: Albumin 3.5 g/dL (3.4-5.0); Bilirubin Direct 0.2 mg/dL (0-0.2); Bilirubin Indirect, Calculated 0.6 mg/dL (0.2-0.8); Bilirubin Total 0.8 mg/dL (0.2-1.0); Magnesium 2.1 mg/dL (1.6-2.4); Potassium 3.5 mEq/L (3.5-5.1); Protein, Total 7.1 g/dL (6.4-8.2); Troponin High Sensitivity 5.6 pg/mL (<58.9)
--- NOTE | 2022-12-11 20:10 | RAD REPORT ---
EXAM DESCRIPTION: CT - Abdomen Pelvis Wo Contrast - 12/11/2022 7:42 pm CLINICAL HISTORY: ABD PAIN COMPARISON: Abdomen Pelvis W Contrast dated 10/02/2020; Abdomen Pelvis Wo Contrast dated 09/29/2020; Abdomen Pelvis W Contrast dated 09/10/2020; Abdomen Pelvis Wo Contrast dated 08/30/2020 TECHNIQUE: Thin cut axial CT imaging of the abdomen and pelvis was performed without IV contrast. Mu ltiplanar reformats were generated and reviewed. All CT scans are performed using dose optimization technique as appropriate and may include automated exposure control or mA/KV adjustment according to patient size. FINDINGS: No suspicious findings in the lung bases. The liver, spleen, and adrenal glands show no suspicious findings. Gallbladder was surgically removed . No intra or extrahepatic biliary ductal dilation. Swelling and adjacent fat stranding involving the pancreatic head. Short segment of wall thickening a nd adjacent fat stranding of the second part of the duodenum as well. No evidence of fluid collection s within limits of noncontrast evaluation. No soft tissue gas. Symmetric renal contour, without suspicious parenchymal findings within limits of noncontrast techniq ue. No evidence of hydroureteronephrosis. Right lower pole 2-3 millimeter calculus. No dilated bowel loops or bowel wall thickening. Mild colonic diverticulosis. No free air, free fluid or inflammatory stranding. No hernia, mass or bulky lymphadenopathy. The urinary bladder is without significant finding. No suspicious bony findings. IMPRESSION: Acute inflammatory changes of the pancreatic head with adjacent duodenitis. Nonobstructing right lower renal pole 2-3 millimeter calculus. Colonic diverticulosis. The findings were communicated to Ren Bruner on 12/11/2022 at 20:06 hours.
--- NOTE | 2022-12-11 20:24 | ER ---
Nurse's Notes [facility] Name: Akin Pugh Age: 52 yrs Sex: Male : 1970 Arrival Date: 12/11/2022 Time: 18:32 Bed 3 Private MD: Diagnosis: Biliary acute pancreatitis;Duodenitis;Vomiting;Epigastric abdominal tenderness Presentation: 12/11 18:31 Chief complaint: EMS states: Not feeling well. Reports fever over the past 2 days along [facility] with nausea and vomiting. Complains of upper abdominal pain. Hx of pancreatitis, states he thinks this may be that. Denies diarrhea. 18:31 Coronavirus screen: Vaccine status: Patient reports receiving the 2nd dose of the covid nj1 vaccine. Ebola Screen: Patient denies travel to an Ebola-affected area in the 21 days before illness onset. Initial Sepsis Screen: Does the patient meet any 2 criteria? HR > 90 bpm. No. Patient's initial sepsis screen is negative. Does the patient have a suspected source of infection? No. Patient's initial sepsis screen is negative. Risk Assessment: Do you want to hurt yourself or someone else? Patient reports no desire to harm self or others. Onset of symptoms was November 2022. 18:31 Method Of Arrival: EMS: [facility] 18:31 Acuity: PAO 3 [facility] 18:31 Care prior to arrival: Glucose check: 113. [facility] Historical: - Allergies: 18:47 Ampicillin; ut1 18:47 Iodinated Contrast Media - IV Dye; [facility] 18:47 Iodine; [facility] 18:47 Levaquin; [facility] - PMHx: 18:47 Asthma; COPD; THROAT CA; Pancreatitis; nj1 - Immunization history:: Client reports receiving the 2nd dose of the Covid vaccine. - Social history:: Smoking status: Patient reports the use of cigarette tobacco products, smokes one-half pack cigarettes per day. - Family history:: not pertinent. Screenin:49 [facility] ED Fall Risk Assessment (Adult) Score/Fall Risk Level 0 - 2 = Low Risk [facility] Oriented to surroundings, Maintained a safe environment, Hourly rounding (assess needs \T\ fall precautionary measures) done. Abuse screen: Denies threats or abuse. Denies injuries from another. Nutritional screening: No deficits noted. Tuberculosis screening: No symptoms or risk factors identified. Assessment: 18:35 General: Appears in no apparent distress. uncomfortable, Behavior is calm, cooperative, nj1 appropriate for age. Pain: Complains of pain in abdomen Pain currently is 9 out of 10 on a pain scale. 18:35 Neuro: Level of Consciousness is awake, alert, obeys commands, Oriented to person, nj1 place, time, situation. Cardiovascular: Patient's skin is warm and dry. Respiratory: Airway is patent Respiratory effort is even, unlabored. GI: Reports upper abdominal pain, nausea, vomiting. 19:15 Reassessment: Patient appears in no apparent distress at this time. Patient and/or nj1 family updated on plan of care and expected duration. Pain level reassessed. Patient is alert, oriented x 3, equal unlabored respirations, skin warm/dry/pink. 19:15 Pain: Complains of pain in abdomen Pain currently is 9 out of 10 on a pain scale. nj1 19:47 Reassessment: Patient appears in no apparent distress at this time. Patient and/or nj1 family updated on plan of care and expected duration. Pain level reassessed. Patient is alert, oriented x 3, equal unlabored respirations, skin warm/dry/pink. Patient states feeling better. 21:30 Reassessment: Patient and/or family updated on plan of care and expected duration. Pain ha1 level reassessed. Patient is alert, oriented x 3, equal unlabored respirations, skin warm/dry/pink. 22:33 Reassessment: Patient and/or family updated on plan of care and expected duration. Pain ha1 level reassessed. Patient is alert, oriented x 3, equal unlabored respirations, skin warm/dry/pink. Report given to JEAN Wagner. Vital Signs: 18:31 BP 148 / 85; Pulse 92; Resp 16; Temp 99.4(O); Pulse Ox 93% on R/A; Weight 77.11 kg; nj1 Height 5 ft. 11 in. ; Pain 9/10; 19:15 BP 134 / 89; Pulse 83; Resp 18; Pulse Ox 95% on R/A; nj1 19:45 BP 135 / 79; Pulse 84; Resp 20; Pulse Ox 96% on R/A; Pain 5/10; nj1 21:30 BP 110 / 67; Pulse 70; Resp 18 S; Pulse Ox 94% on R/A; ha1 22:26 BP 110 / 67; Pulse 68; Resp 17 S; Pulse Ox 96% on R/A; ha1 18:31 Body Mass Index 23.71 (77.11 kg, 180.34 cm) nj1 18:31 Pain Scale: Adult nj1 19:45 Pain Scale: Adult nj1 ED Course: 18:39 Patient arrived in ED. nj1 18:42 Ren Bruner MD is Attending Physician. [facility] 18:43 Jaylin Shaikh RN is Primary Nurse. nj1 18:47 Triage completed. nj1 18:48 Arm band placed on left wrist. nj1 18:49 Patient has correct armband on for positive identification. Bed in low position. Call nj1 light in reach. Side rails up X 1. Provided Education on: fall precautions, call light. 19:14 XRAY Chest (1 view) In Process Unspecified. EDMS 19:15 Inserted saline lock: 20 gauge in right forearm, using aseptic technique. Blood nj1 collected. 19:44 CT Abd/Pelvis - Without Contrast In Process Unspecified. EDMS 20:19 Bala Anderson MD is Hospitalizing Provider. [facility] 21:00 Report given to Tammy PENA. nj1 21:00 Report received from JEAN Mosqueda and JEAN Stanley. ha1 22:35 No provider procedures requiring assistance completed. Patient admitted, IV remains in ha1 place. Administered Medications: 19:18 Drug: NS 0.9% IV 1000 ml Route: IV; Rate: 1 bolus; Site: right forearm; nj1 19:18 Drug: NS 0.9% IV 1000 ml Route: IV; Rate: 1 bolus; Site: right forearm; nj1 19:18 Drug: Ondansetron IVP 4 mg Route: IVP; Site: right forearm; nj1 19:45 Follow up: Response: No adverse reaction; Nausea is decreased nj1 19:20 Drug: Famotidine IVP 20 mg Route: IVP; Site: right forearm; nj1 19:46 Follow up: Response: No adverse reaction nj1 19:22 Drug: morphine IVP or IV 4 mg Route: IVP; Infused Over: 4 mins; Site: right forearm; nj1 19:46 Follow up: Response: No adverse reaction; Pain is decreased nj1 21:10 Drug: Pantoprazole IVP 80 mg Route: IVP; Site: right forearm; nj1 Medication: 22:35 VIS not applicable for this client. ha1 Outcome: 20:23 Decision to Hospitalize by Provider. kishan 22:35 Admitted to Tele accompanied by tech, via stretcher, room 411, with chart, Report ha1 called to JEAN Wagner 22:35 Condition: stable 22:35 Discharge instructions given to patient, Instructed on the need for admit, Demonstrated understanding of instructions. 22:54 Patient left the ED. ha1 Signatures: Dispatcher [employer] EDRen Pereira MD MD cha Ayala, Heidy, RN RN ha1 Jaylin Shaikh RN RN nj1 Corrections: (The following items were deleted from the chart) 19:47 19:45 Pulse 84bpm; Resp 20bpm; Pulse Ox 96% RA; Pain 5/10, Adult; nj1 nj1
--- NOTE | 2022-12-11 20:24 | EDPHYS ---
Physician Documentation [facility] Name: Akin Pugh Age: 52 yrs Sex: Male : 1970 Arrival Date: 12/11/2022 Time: 18:32 Bed 3 Private MD: ALEJANDRA Physician Ren Bruner HPI: 12/11 18:53 This 52 yrs old Male presents to ER via EMS with complaints of ABD PAIN , kishan PANCREATITIS . 18:53 The patient presents with abdominal pain abdominal distention in the upper abdomen. kishan Onset: The symptoms/episode began/occurred 2 day(s) ago. The patient presents to the emergency department with nausea, vomiting, abdominal pain, of the epigastric area, right upper quadrant and left upper quadrant. Onset: The symptoms/episode began/occurred 2 day(s) ago. Possible causes: unknown. The symptoms are aggravated by pressure, food , The symptoms are alleviated by nothing. remaining still. Associated signs and symptoms: Pertinent positives: abdominal pain, nausea, vomiting. The symptoms radiate to back. Modifying factors: The symptoms are alleviated by nothing, remaining still, the symptoms are aggravated by food, pressure. Historical: - Allergies: 18:47 Ampicillin; nj1 18:47 Iodinated Contrast Media - IV Dye; nj1 18:47 Iodine; nj1 18:47 Levaquin; nj1 - PMHx: 18:47 Asthma; COPD; THROAT CA; Pancreatitis; nj1 - Immunization history:: Client reports receiving the 2nd dose of the Covid vaccine. - Social history:: Smoking status: Patient reports the use of cigarette tobacco products, smokes one-half pack cigarettes per day. - Family history:: not pertinent. ROS: 18:53 Constitutional: Negative for fever, chills, and weight loss, Eyes: Negative for injury, kishan pain, redness, and discharge, ENT: Negative for injury, pain, and discharge, Neck: Negative for injury, pain, and swelling, Cardiovascular: Negative for chest pain, palpitations, and edema, Respiratory: Negative for shortness of breath, cough, wheezing, and pleuritic chest pain, Back: Negative for injury and pain, : Negative for injury, bleeding, discharge, and swelling, MS/Extremity: Negative for injury and deformity, Skin: Negative for injury, rash, and discoloration, Neuro: Negative for headache, weakness, numbness, tingling, and seizure, Psych: Negative for depression, anxiety, suicide ideation, homicidal ideation, and hallucinations, Allergy/Immunology: Negative for hives, rash, and allergies, Endocrine: Negative for neck swelling, polydipsia, polyuria, polyphagia, and marked weight changes, Hematologic/Lymphatic: Negative for swollen nodes, abnormal bleeding, and unusual bruising. 18:53 Abdomen/GI: Positive for abdominal pain, nausea and vomiting, of the epigastric area. Exam: 18:53 Constitutional: This is a well developed, well nourished patient who is awake, alert, kishan and in no acute distress. Head/Face: Normocephalic, atraumatic. Eyes: Pupils equal round and reactive to light, extra-ocular motions intact. Lids and lashes normal. Conjunctiva and sclera are non-icteric and not injected. Cornea within normal limits. Periorbital areas with no swelling, redness, or edema. ENT: Nares patent. No nasal discharge, no septal abnormalities noted. Tympanic membranes are normal and external auditory canals are clear. Oropharynx with no redness, swelling, or masses, exudates, or evidence of obstruction, uvula midline. Mucous membranes moist. Neck: Trachea midline, no thyromegaly or masses palpated, and no cervical lymphadenopathy. Supple, full range of motion without nuchal rigidity, or vertebral point tenderness. No Meningismus. Chest/axilla: Normal chest wall appearance and motion. Nontender with no deformity. No lesions are appreciated. Cardiovascular: Regular rate and rhythm with a normal S1 and S2. No gallops, murmurs, or rubs. Normal PMI, no JVD. No pulse deficits. Respiratory: Lungs have equal breath sounds bilaterally, clear to auscultation and percussion. No rales, rhonchi or wheezes noted. No increased work of breathing, no retractions or nasal flaring. Back: No spinal tenderness. No costovertebral tenderness. Full range of motion. Male : Normal genitalia with no discharge or lesions. Skin: Warm, dry with normal turgor. Normal color with no rashes, no lesions, and no evidence of cellulitis. MS/ Extremity: Pulses equal, no cyanosis. Neurovascular intact. Full, normal range of motion. Neuro: Awake and alert, GCS 15, oriented to person, place, time, and situation. Cranial nerves II-XII grossly intact. Motor strength 5/5 in all extremities. Sensory grossly intact. Cerebellar exam normal. Normal gait. Psych: Awake, alert, with orientation to person, place and time. Behavior, mood, and affect are within normal limits. 18:53 Abdomen/GI: Inspection: distension, that is moderate, Bowel sounds: active, all quadrants, Palpation: moderate abdominal tenderness, in the epigastric area, right upper quadrant and left upper quadrant, Liver: no appreciated palpable abnormalities, Hernia: not appreciated. Vital Signs: 18:31 BP 148 / 85; Pulse 92; Resp 16; Temp 99.4(O); Pulse Ox 93% on R/A; Weight 77.11 kg; nj1 Height 5 ft. 11 in. ; Pain 9/10; 19:15 BP 134 / 89; Pulse 83; Resp 18; Pulse Ox 95% on R/A; nj1 19:45 BP 135 / 79; Pulse 84; Resp 20; Pulse Ox 96% on R/A; Pain 5/10; nj1 21:30 BP 110 / 67; Pulse 70; Resp 18 S; Pulse Ox 94% on R/A; ha1 22:26 BP 110 / 67; Pulse 68; Resp 17 S; Pulse Ox 96% on R/A; ha1 18:31 Body Mass Index 23.71 (77.11 kg, 180.34 cm) nj 18:31 Pain Scale: Adult nj1 19:45 Pain Scale: Adult nj1 MDM: 18:42 Patient medically screened. kishan 18:55 Differential diagnosis: bowel obstruction, cholecystitis, Cholelithiasis, kishan diverticulitis, gastritis, Mesenteric ischemia or infarction, non-specific abd pain, pancreatitis, Peptic Ulcer Disease, Perf. Duodenal Ulcer. Data reviewed: vital signs, nurses notes, EMS record, lab test result(s), EKG, radiologic studies, CT scan, plain films. Consideration of Admission/Observation Patient was admitted/placed on observation. Escalation of care including admission/observation considered. I considered the following discharge prescriptions or medication management in the emergency department Medications were administered in the Emergency Department. See MAR. Independent interpretation of the following test(s) in the Emergency Department CT Scan: My interpretation is CT ABD / PELVIS . Test considered but Not performed: Ultrasound NO ABD USG. Care significantly affected by the following chronic conditions: Cancer, ASTHMA, TOBACCO ABUSE, THROAT CANCER, PANCREATITIS. 12/11 18:51 Order name: Basic Metabolic Panel; Complete Time: 20:[address] [facility] 12/11 18:51 Order name: CBC with Diff; Complete Time: 19:[address] [facility] 12/11 18:51 Order name: LFT's; Complete Time: 20:[address] [facility] 12/11 18:51 Order name: Magnesium; Complete Time: 20:[address] [facility] 12/11 18:51 Order name: NT PRO-BNP; Complete Time: 20:[address] [facility] 12/11 18:51 Order name: PT-INR; Complete Time: 19:[address] [facility] 12/11 18:51 Order name: Troponin HS; Complete Time: 20:[address] [facility] 12/11 18:51 Order name: Lipid Profile; Complete Time: 20:[address] [facility] 12/11 18:51 Order name: Urinalysis w/ reflexes [facility] 12/11 20:06 Order name: Lipase; Complete Time: 21:22 la1 12/11 18:51 Order name: XRAY Chest (1 view); Complete Time: 19:[address] [facility] 12/11 18:52 Order name: CT Abd/Pelvis - Without Contrast; Complete Time: 20:[address] [facility] 12/11 18:51 Order name: EKG; Complete Time: 18:[address] [facility] 12/11 18:51 Order name: Cardiac monitoring; Complete Time: 18:[address] [facility] 12/11 18:51 Order name: EKG - Nurse/Tech; Complete Time: 19:[address] [facility] 12/11 18:51 Order name: IV Saline Lock; Complete Time: 19:[address] [facility] 12/11 18:51 Order name: Labs collected and sent; Complete Time: 19:[address] [facility] 12/11 18:51 Order name: O2 Per Protocol; Complete Time: 19:[address] [facility] 12/11 18:51 Order name: O2 Sat Monitoring; Complete Time: 19:[address] [facility] Administered Medications: 19:18 Drug: NS 0.9% IV 1000 ml Route: IV; Rate: 1 bolus; Site: right forearm; nj1 19:18 Drug: NS 0.9% IV 1000 ml Route: IV; Rate: 1 bolus; Site: right forearm; nj1 19:18 Drug: Ondansetron IVP 4 mg Route: IVP; Site: right forearm; nj1 19:45 Follow up: Response: No adverse reaction; Nausea is decreased nj1 19:20 Drug: Famotidine IVP 20 mg Route: IVP; Site: right forearm; nj1 19:46 Follow up: Response: No adverse reaction nj1 19:22 Drug: morphine IVP or IV 4 mg Route: IVP; Infused Over: 4 mins; Site: right forearm; nj1 19:46 Follow up: Response: No adverse reaction; Pain is decreased nj1 21:10 Drug: Pantoprazole IVP 80 mg Route: IVP; Site: right forearm; nj1 Disposition Summary: 12/11/22 20:23 Hospitalization Ordered Hospitalization Status: Inpatient Admission kishan Provider: Bala Anderson cha Location: Telemetry/MedSurg (Inpatient) kishan Condition: Fair kishan Problem: new kishan Symptoms: have improved kishan Bed/Room Type: Standard [facility] Room Assignment: 411(12/11/22 21:11) mw Diagnosis - Biliary acute pancreatitis kishan - Duodenitis kishan - Vomiting kishan - Epigastric abdominal tenderness kishan Forms: - Medication Reconciliation Form kishan - SBAR form kishan - Leadership Thank You Letter kishan Signatures: Dispatcher [employer] EDMS Jasmyn Das RN RN mw Anderson, Corey, MD MD cha Attema, Lee, LIFE SKILLS COACH-C LIFE SKILLS COACH-Cla1 Jaylin Shaikh RN RN nj1 Corrections: (The following items were deleted from the chart) 19:24 18:52 Abdomen Pelvis W Con+CT.RAD.BRZ ordered. EDPR EDMS 21:11 20:23 kishan
[2022-12-11] MEDS ORDERED: PANTOPRAZOLE 40 MG INJ ONE (21:09)
--- NOTE | 2022-12-11 21:26 | P.HP ---
Certification for Inpatient Patient admitted to: Inpatient With expected LOS: >2 Midnights Patient will require the following post-hospital care: None Practitioner: I am a practitioner with admitting privileges, knowledge of patient current condition, hospital course, and medical plan of care. Services: Services provided to patient in accordance with Admission requirements found in Title 42 Section 412.3 of the Code of Federal Regulations Patient History Date of Service: 12/11/22 Reason for admission: Pancreatitis, duodenitis History of Present Illness: 52-year-old male with history of throat cancer status post total laryngectomy and reconstruction, COPD, pancreatitis/duodenitis presents to the emergency department with chief complaint of abdominal pain increasing over the course of last 2 days, he also does report some nausea, no diarrhea. Denies any other symptoms feels similar to previous episodes of pancreatitis. He was evaluated here in the emergency department his labs were significant for lipase 684 white blood count 12.1 hemoglobin 17.1 hematocrit 50.5 triglycerides 117 he has a previous cholecystectomy CT abdomen pelvis with IV contrast showed acute laboratory changes the pancreatic head with adjacent duodenitis, nonobstructing right lower renal pole to 3 mm calculus, colonic diverticulosis. No complicating findings on CT for pancreatitis LFTs within normal limits at this time. He has had duodenitis during previous admissions for pancreatitis as well, he also had a gastric emptying study during his admission and 2020 which was normal. He will be admitted for acute pancreatitis. Allergies levofloxacin [From Levaquin] Allergy (Severe, Verified 10/01/20 07:25) Itching/Hives/Rash ampicillin Allergy (Verified 10/01/20 07:25) Itching/Hives/Rash iodine Allergy (Verified 10/01/20 07:25) Hives/Rash Home Medications: Lipase/Protease/Amylase [Chucho Falcon 12,000 Unit Capsule] 1 each PO BEDTIME PRN PRN 09/29/20 Hydrocodone 10/APAP 325 [[place] 10/325*] 1 tab PO Q4HP PRN #42 tab 10/02/20 Amlodipine [Norvasc*] 10 mg PO DAILY #30 tab 02/16/21 Aspirin 81 mg PO DAILY #30 tab.chew 02/16/21 Aspirin [Aspirin EC] 81 mg PO DAILY #30 02/16/21 Doxycycline Hyclate 100 mg PO BID #20 capsule 02/16/21 Escitalopram [Lexapro*] 20 mg PO DAILY #30 tab 02/16/21 Ferrous Sulfate [Ferrous Sulfate Elixir*] 5 ml PO BID #60 osyr 02/16/21 Gabapentin [Neurontin*] 100 mg PO QID #120 cap 02/16/21 Levothyroxine Sodium [Levoxyl] 125 mcg PO Q48H #30 02/16/21 Levothyroxine [Synthroid*] 125 mcg PO DXQFA9MD #30 tab 02/16/21 Lipase/Protease/Amylase [Chucho Falcon 12,000 Units Capsule] 1 tab PO TIDWM #90 cap 02/16/21 Melatonin [Melatonin*] 6 mg PO BEDTIME #30 tablet 02/16/21 Melatonin [Melatonin*] 6 mg PO BEDTIME #60 02/16/21 Mupirocin Oint [Bactroban 2% Ointment*] 1 appl TOP BID #1 tube 02/16/21 - Past Medical/Surgical History Diabetic: No -: Asthma -: Depression -: Throat cancer status post complete laryngectomy/reconstruction 06/2018 -: Recurrent postop infection -: Chronic pain -: Former tobacco use -: Surgical hypothyroidism -: neuropathy -: Pancreatitis/duodenitis -: Tracheostomy -: Appendectomy -: Complete laryngectomy with reconstruction -: knee surgery bilateral knees -: Thyroidectomy Psychosocial/ Personal History: Patient is . He has 3 children. - Family History Father -: Heart disease, Diabetes Notes: agent orange: immobile Mother -: Cancer Notes: breast ca - Social History Smoking Status: Current every day smoker Counseled patient to stop smoking for: less than 10 minutes Alcohol use: No CD- Drugs: No Caffeine use: Yes Place of Residence: Home Review of Systems 10-point ROS is otherwise unremarkable Gastrointestinal: Nausea, Vomiting, Abdominal Pain Physical Examination - Physical Exam General: Alert, In no apparent distress, Oriented x3 HEENT: Atraumatic, PERRLA, Mucous membr. moist/pink, EOMI, Sclerae nonicteric Neck: Supple, 2+ carotid pulse no bruit, No LAD, Without JVD or thyroid abnormality Respiratory: Clear to auscultation bilaterally, Normal air movement Cardiovascular: Regular rate/rhythm, Normal S1 S2 Capillary refill: <2 Seconds Gastrointestinal: Tenderness (Moderate epigastric tenderness) Musculoskeletal: No tenderness Integumentary: No rashes Neurological: Normal speech, Normal strength at 5/5 x4 extr, Normal tone, Normal affect - Studies Laboratory Data (last 24 hrs) 12/11/22 12/11/22 12/11/22 19:15 19:15 19:15 WBC 12.10 H Hgb 17.1 Hct 50.5 H Plt Count 278 PT 12.8 H INR 1.16 Sodium Potassium BUN Creatinine Glucose Magnesium Total Bilirubin AST ALT Alkaline Phosphatase Triglycerides Cholesterol HDL Cholesterol Cholesterol/HDL Ratio Lipase 684 H 12/11/22 19:15 WBC Hgb Hct Plt Count PT INR Sodium 137 Potassium 3.5 BUN 5 L Creatinine 0.78 Glucose 136 H Magnesium 2.1 Total Bilirubin 0.8 AST 9 L ALT 26 Alkaline Phosphatase 110 Triglycerides 117 Cholesterol 173 HDL Cholesterol 40 Cholesterol/HDL Ratio 4.33 Lipase Assessment and Plan - Plan Assessment: Acute pancreatitis/duodenitis History of laryngectomy with reconstruction COPD Tobacco abuse Plan: Acute pancreatitis/duodenitis N.p.o., IVF, PPI, as needed pain medication and antiemetics. Patient has previous cholecystectomy, normal LFTs, denies alcohol use for the past few months. Unclear etiology but recurrent nature, no signs of, fatty factors. GI consult. Had gastric emptying study 2020 normal. History of laryngectomy with reconstruction Supportive care. COPD Continue home medications Tobacco abuse Counseled on need for cessation. DVT PPX: Lovenox Code status: Full Discharge Plan: Home Plan to discharge in: Greater than 2 days - Advance Directives Does patient have a Living Will: No Does patient have a Durable POA for Healthcare: Yes - Code Status/Comfort Care Code Status Assessed: Yes (Full code) Critical Care: No Time Spent Managing Pts Care (In Minutes): 55
[2022-12-11 21:30] LABS: Specific Gravity 1.007 (1.005-1.030); Urine Bilirubin NEGATIVE (Negative); Urine Blood Negative (Negative); Urine Clarity Clear (Clear); Urine Color Light-Yellow (Yellow); Urine Glucose NEGATIVE (Negative); Urine Protein NEGATIVE (Negative); Urine Urobilinogen Normal (Normal)
[2022-12-11] MEDS ORDERED: SODIUM CHLORIDE 0.9% 10ML INJ IV PRN (22:32)
[2022-12-11] MEDS ORDERED: ONDANSETRON 4 MG/2 ML VIAL IV PRN (22:32)
[2022-12-11] MEDS: MORPHINE 4 MG/ML SYR IV PRN (23:03)
[2022-12-11] MEDS: Ringers Lactate 1,000 ML IV SCH (23:04)
[2022-12-11 23:18] VITALS: BMI 23.7
[2022-12-11 23:36] VITALS: O2SAT 96
[2022-12-12] MEDS: MORPHINE 4 MG/ML SYR IV PRN ×5 (03:00→20:35)
[2022-12-12 03:41] LABS: Absolute Lymphocytes (CBC) 1.1 K/uL (0.7-4.9); Hematocrit 44.8 % (39.6-49.0); Lymphocytes % 14.2 % (15.3-44.8); MCV 94.5 fL (80-100); MPV 7.9 fL (7.6-11.3); Platelets 226 thou/uL (152-406); RBC Red Blood Cell Count 4.74 M/uL (4.33-5.43)
[2022-12-12 04:01] LABS: Albumin 2.9 g/dL (3.4-5.0); Bilirubin Total 0.6 mg/dL (0.2-1.0); Magnesium 1.8 mg/dL (1.6-2.4); Protein, Total 5.9 g/dL (6.4-8.2)
[2022-12-12] MEDS: Ringers Lactate 1,000 ML IV SCH ×4 (05:36→21:48)
--- NOTE | 2022-12-12 07:21 | P.PN ---
Date of Service: 12/12/22 Subjective: feeling a little better today nausea improving - starting to get an appetite abdominal pain slowly improving no acute events overnight afebrile ROS: 10 point ROS as noted above, otherwise negative Physical Exam: GEN: Alert, oriented, NAD HEENT: Normal conjunctiva, sclera anicteric; +trach CV: Regular rate and rhythm, no edema Pulm: Nonlabored respirations on room air ABD: Soft, Moderate epigastric tenderness, nondistended vitals reviewed Problem List: Acute pancreatitis/duodenitis History of laryngectomy with reconstruction COPD, chronic Tobacco abuse Plan: Acute pancreatitis/duodenitis Patient has previous cholecystectomy, normal LFTs, denies alcohol use for the past few months. Unclear etiology but recurrent nature, no signs of, fatty factors. Had gastric emptying study 2020 normal. GI - Dr. Ross consulted MRCP (12/12): Enlarged the pancreatic head with stranding in the adjacent fat. Several tiny cystic structures within the pancreatic head ice chips / sips of water Continue PPI PRN pain medication, PRN antiemetics lipase improving History of laryngectomy with reconstruction. continue supportive care. COPD, chronic. Continue home medications Tobacco abuse. Counseled on need for cessation. Placed on nicoderm patch VTE: Lovenox Code: Full Dispo: Home, ~2 days
[2022-12-12] MEDS: ENOXAPARIN 40 MG/0.4 ML SQ SCH (08:23)
[2022-12-12] MEDS: NICOTINE 14 MG/PAT TD PRN (08:24)
[2022-12-12] MEDS: PANTOPRAZOLE 40 MG INJ IVP SCH ×2 (08:25→20:35)
[2022-12-12] MEDS ORDERED: MAGNESIUM SULFATE 1 gm IVPB 1 GM/100 ML BAG IV ONE (09:00)
[2022-12-12] MEDS ORDERED: LORazepam 2 MG/ML VIAL IV ONE (10:58)
--- NOTE | 2022-12-12 12:10 | RAD REPORT ---
EXAM DESCRIPTION: MRICholangiogram12/12/2022 11:41 am CLINICAL HISTORY: Abdominal pain/pancreatitis COMPARISON: 2020 MRCP TECHNIQUE: Magnetic resonance cholangiogram was performed.3D MIP reconstruction performed. Additiona l axial and coronal magnetic resonance imaging of abdomen obtained. FINDINGS: Cholecystectomy The biliary tree is normal caliber without a filling defect. Pancreatic duct is normal caliber The pancreatic head is enlarged with stranding in the adjacent fat. Several tiny cystic structures ar e present within pancreatic head IMPRESSION: Enlarged the pancreatic head with stranding in the adjacent fat. Several tiny cystic str uctures within the pancreatic head. All of these findings probably are the sequela of pancreatitis
[2022-12-12] MEDS ORDERED: HYDROCODONE/APAP 10/325 TAB PO PRN (17:54)
[2022-12-12] MEDS: ESCITALOPRAM 20 MG TAB PO SCH (20:35)
[2022-12-12] MEDS: LIPASE/PROTEASE/AMYLASE CAP PO SCH (20:35)
[2022-12-12] MEDS: GABAPENTIN 400 MG CAP PO SCH (20:35)
[2022-12-13] MEDS: MORPHINE 4 MG/ML SYR IV PRN ×5 (04:23→22:28)
[2022-12-13] MEDS: Ringers Lactate 1,000 ML IV SCH (04:24)
[2022-12-13 04:44] LABS: Absolute Lymphocytes (CBC) 0.9 K/uL (0.7-4.9); Hematocrit 44.6 % (39.6-49.0); Lymphocytes % 16.5 % (15.3-44.8); MPV 8.5 fL (7.6-11.3); Platelets 213 thou/uL (152-406); RBC Red Blood Cell Count 4.69 M/uL (4.33-5.43)
[2022-12-13 05:04] LABS: Albumin 2.7 g/dL (3.4-5.0); Bilirubin Total 1.1 mg/dL (0.2-1.0); Magnesium 1.9 mg/dL (1.6-2.4); Potassium 3.9 mEq/L (3.5-5.1); Protein, Total 5.5 g/dL (6.4-8.2)
--- NOTE | 2022-12-13 07:41 | P.PN ---
Date of Service: 12/13/22 Subjective: tolerating ice chips/sips; no nausea / vomiting abdominal pain improving no acute events overnight afebrile ROS: 10 point ROS as noted above, otherwise negative Physical Exam: GEN: Alert, oriented, NAD HEENT: Normal conjunctiva, sclera anicteric; +trach CV: Regular rate and rhythm, no edema Pulm: Nonlabored respirations on room air ABD: Soft, mild-mod RUQ/ epigastric tenderness, nondistended vitals reviewed Problem List: Acute pancreatitis/duodenitis History of laryngectomy with reconstruction COPD, chronic Tobacco abuse Acute pancreatitis/duodenitis Patient has previous cholecystectomy, normal LFTs, denies alcohol use for the past few months. Unclear etiology but recurrent nature, no signs of, fatty factors. Had gastric emptying study 2020 normal. GI - Dr. Ross consulted MRCP (12/12): Enlarged the pancreatic head with stranding in the adjacent fat. Several tiny cystic structures within the pancreatic head clear liquids - advance diet as tolerated Continue PPI PRN pain medication, PRN antiemetics lipase improved Monitor LFTs History of laryngectomy with reconstruction. continue supportive care. COPD, chronic. Continue home medications Tobacco abuse. Counseled on need for cessation. Placed on nicoderm patch VTE: Lovenox Code: Full Dispo: Home, ~1-2 days pending improvement of pain, afebrile > 24hrs, further improvement of labs
[2022-12-13] MEDS ORDERED: POTASSIUM CL SA 10 MEQ TAB PO ONE (09:00)
[2022-12-13] MEDS ORDERED: Ringers Lactate 1,000 ML IV SCH (09:51)
[2022-12-13] MEDS: PANTOPRAZOLE 40 MG INJ IVP SCH ×2 (09:57→20:33)
[2022-12-13] MEDS: ESCITALOPRAM 20 MG TAB PO SCH (09:57)
[2022-12-13] MEDS: ENOXAPARIN 40 MG/0.4 ML SQ SCH (09:57)
[2022-12-13] MEDS: GABAPENTIN 400 MG CAP PO SCH ×3 (09:57→20:34)
[2022-12-13] MEDS: LIPASE/PROTEASE/AMYLASE CAP PO SCH ×3 (09:58→20:33)
[2022-12-13] MEDS: NICOTINE 14 MG/PAT TD PRN (14:53)
[2022-12-14] MEDS: MORPHINE 4 MG/ML SYR IV PRN ×2 (02:28→06:43)
[2022-12-14 03:06] LABS: Absolute Lymphocytes (CBC) 1.1 K/uL (0.7-4.9); Hematocrit 46.8 % (39.6-49.0); Lymphocytes % 17.5 % (15.3-44.8); MCV 94.4 fL (80-100); MPV 8.2 fL (7.6-11.3); Platelets 222 thou/uL (152-406); RBC Red Blood Cell Count 4.95 M/uL (4.33-5.43)
[2022-12-14 03:31] LABS: Albumin 2.8 g/dL (3.4-5.0); Bilirubin Total 1.1 mg/dL (0.2-1.0); Magnesium 1.9 mg/dL (1.6-2.4); Potassium 4.1 mEq/L (3.5-5.1); Protein, Total 5.7 g/dL (6.4-8.2)
[2022-12-14] MEDS ORDERED: MORPHINE 2 MG/ML SYR IV PRN (07:08)
--- NOTE | 2022-12-14 07:13 | P.PN ---
Date of Service: 12/14/22 Subjective: feeling better today feels pain continues to improve slowly each day appetite improving no acute events overnight ROS: 10 point ROS as noted above, otherwise negative Physical Exam: GEN: Alert, oriented, NAD HEENT: Normal conjunctiva, sclera anicteric; +trach CV: Regular rate and rhythm, no edema Pulm: Nonlabored respirations on room air ABD: Soft, mild-mod RUQ/ epigastric tenderness, nondistended vitals reviewed Problem List: Acute pancreatitis/duodenitis History of laryngectomy with reconstruction COPD, chronic Tobacco abuse Acute pancreatitis/duodenitis Patient has previous cholecystectomy, normal LFTs, denies alcohol use for the past few months. Unclear etiology but recurrent nature, no signs of, fatty factors. Had gastric emptying study 2020 normal. GI - Dr. Ross consulted MRCP (12/12): Enlarged the pancreatic head with stranding in the adjacent fat. Several tiny cystic structures within the pancreatic head clear liquids - advance diet as tolerated Continue PPI PRN pain medication, PRN antiemetics wean IV pain medication as tolerated lipase improved Monitor LFTs History of laryngectomy with reconstruction. continue supportive care. COPD, chronic. Continue home medications Tobacco abuse. Counseled on need for cessation. Placed on nicoderm patch VTE: Lovenox Code: Full Dispo: Home, ~1-2 days pending improvement of pain, afebrile > 24hrs, further improvement of labs
[2022-12-14] MEDS ORDERED: HYDROCODONE/APAP 5/325 MG TAB PO PRN (07:58)
[2022-12-14] MEDS: LIPASE/PROTEASE/AMYLASE CAP PO SCH (08:14)
[2022-12-14] MEDS: ESCITALOPRAM 20 MG TAB PO SCH (08:14)
[2022-12-14] MEDS: GABAPENTIN 400 MG CAP PO SCH (08:14)
[2022-12-14] MEDS: ENOXAPARIN 40 MG/0.4 ML SQ SCH (08:14)
[2022-12-14] MEDS: PANTOPRAZOLE 40 MG INJ IVP SCH (08:14)
[2022-12-14 12:28] VITALS: BP 124/76; TEMP 97.3
--- NOTE | 2022-12-14 12:43 | P.DS ---
Admission Date: 12/11/22 Discharge Date: 12/14/22 Disposition: ROUTINE DISCHARGE Discharge Condition: GOOD Reason for Admission: Pancreatitis, duodenitis Consultations: GI - Dr. 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 Denies any other symptoms feels similar to previous episodes of pancreatitis. He was evaluated here in the emergency department his labs were significant for lipase 684 white blood count 12.1 hemoglobin 17.1 hematocrit 50.5 triglycerides 117 he has a previous cholecystectomy CT abdomen pelvis with IV contrast showed acute laboratory changes the pancreatic head with adjacent duodenitis, nonobstructing right lower renal pole to 3 mm calculus, colonic diverticulosis. No complicating findings on CT for pancreatitis LFTs within normal limits at this time. He has had duodenitis during previous admissions for pancreatitis as well, he also had a gastric emptying study during his admission and 2020 which was normal. Hospital Course: Problem List: Acute pancreatitis/duodenitis History of laryngectomy with reconstruction COPD, chronic Tobacco abuse Patient presented with worsening abdominal pain, nausea. He was found to have acute pancreatitis/duodenitis noted on CT abdomen and MRCP. GI was consulted. Patient was given protonix along with IV fluids and had improvement of his symptoms. Patient was feeling better, abdominal pain improved, tolerating soft foods, and was deemed stable for discharge home. LFTs were noted to be mildly elevated during hospitalization. Discussed with Dr. Ross (GI) and patient deemed stable for discharge home with close GI clinic follow up. Recommend repeat bloodwork within 1 week. Labwork on discharge: Lipase: 46 (normal range 13-75) AST: 77 (normal range 15-37) ALT: 77 (normal range 16-61) Total Bili: 1.1 (normal range 0.2-1.0) Medications: New: Protonix 40 mg twice a day [place] as needed for pain continue other home medications as previously prescribed Follow up: PCP 3-5 days GI clinic in 1-2 weeks Physical Exam: GEN: Alert, oriented, NAD HEENT: Normal conjunctiva, sclera anicteric; +trach CV: Regular rate and rhythm, no edema Pulm: Nonlabored respirations on room air ABD: Soft, minimal epigastric tenderness, nondistended Vital Signs/Physical Exam: Temp Pulse Resp BP Pulse Ox 97.3 F 50 16 124/76 98 12/14/22 12:00 12/14/22 12:00 12/14/22 12:00 12/14/22 12:00 12/14/22 12:00 Laboratory Data at Discharge: WBC 6.40 thou/uL (4.3-10.9) 12/14/22 02:05 Hgb 15.7 g/dL (13.6-17.9) 12/14/22 02:05 Hct 46.8 % (39.6-49.0) 12/14/22 02:05 Plt Count 222 thou/uL (152-406) 12/14/22 02:05 PT 12.8 SECONDS (9.5-12.5) H 12/11/22 19:15 INR 1.16 12/11/22 19:15 Sodium 144 mEq/L (136-145) 12/14/22 02:05 Potassium 4.1 mEq/L (3.5-5.1) 12/14/22 02:05 BUN 5 mg/dL (7-18) L 12/14/22 02:05 Creatinine 0.74 mg/dL (0.70-1.30) 12/14/22 02:05 Glucose 88 mg/dL (74-106) 12/14/22 02:05 Magnesium 1.9 mg/dL (1.6-2.4) 12/14/22 02:05 Total Bilirubin 1.1 mg/dL (0.2-1.0) H 12/14/22 02:05 AST 77 U/L (15-37) H 12/14/22 02:05 ALT 77 U/L (16-61) H 12/14/22 02:05 Alkaline Phosphatase 160 U/L (45-117) H 12/14/22 02:05 Triglycerides 117 mg/dL (<150) 12/11/22 19:15 Cholesterol 173 mg/dL (<200) 12/11/22 19:15 HDL Cholesterol 40 mg/dL (40-60) 12/11/22 19:15 Cholesterol/HDL Ratio 4.33 12/11/22 19:15 Lipase 46 U/L (13-75) 12/14/22 02:05 Home Medications: RX: Escitalopram [Lexapro*] 20 mg PO DAILY #30 tab 02/16/21 RX: Levothyroxine Sodium [Levoxyl] 125 mcg PO Q48H #30 02/16/21 RX: Levothyroxine [Synthroid*] 125 mcg PO [id number] #30 tab 02/16/21 RX: Gabapentin [Neurontin*] 800 mg PO TID 12/11/22 RX: Lipase/Protease/Amylase [[place] 12,000 Units Capsule] 1 tab PO TID 12/11/22 Hydrocodone Bit/Acetaminophen [Hydrocodon-Acetaminophen 5-325] 1 tab PO Q8H PRN #15 tab 12/14/22 Pantoprazole Sodium [Protonix] 40 mg PO BID 30 Days #60 tab 12/14/22 New Medications: Hydrocodone Bit/Acetaminophen [Hydrocodon-Acetaminophen 5-325] 1 tab PO Q8H PRN #15 tab PRN Reason: Pain Scale 5-7 (Moderate) Pantoprazole Sodium [Protonix] 40 mg PO BID 30 Days #60 tab Physician Discharge Instructions: Patient presented with worsening abdominal pain, nausea. He was found to have acute pancreatitis/duodenitis noted on CT abdomen and MRCP. GI was consulted. Patient was given protonix along with IV fluids and had impro vement of his symptoms. Patient was feeling better, abdominal pain improved, tolerating soft foods, and was deemed stable for discharge home. LFTs were noted to be mildly elevated during hospitalization. Discussed with Dr. Ross (GI) and patient deemed stable for discharge home with close GI clinic follow up. Recommend repeat bloodwork within 1 week. Labwork on discharge: Lipase: 46 (normal range 13-75) AST: 77 (normal range 15-37) ALT: 77 (normal range 16-61) Total Bili: 1.1 (normal range 0.2-1.0) Medications: New: Protonix 40 mg twice a day [place] as needed for pain Follow up: PCP 3-5 days GI clinic in 1-2 weeks Followup: NONE,NONE [Primary Care Provider] - Time spent managing pt's care (in minutes): 45
== END 2022-12-14 13:55 | disposition home or self-care (01) | DRG 391 ==
LOC: ER 18:32 → ERHOLD 20:59 → 4TH 21:56
PROVIDERS: ADMIT Hospitalist; ATTEND Hospitalist
DX: K29.80 Duodenitis without bleeding (principal); K85.10 Biliary acute pancreatitis without necrosis or infection; J44.9 Chronic obstructive pulmonary disease, unspecified; K57.30 Diverticulosis of large intestine without perforation or abscess without bleeding; F17.210 Nicotine dependence, cigarettes, uncomplicated; Z88.1 Allergy status to other antibiotic agents; Z71.6 Tobacco abuse counseling; Z79.82 Long term (current) use of aspirin; Z91.041 Radiographic dye allergy status; Z91.048 Other nonmedicinal substance allergy status; Z79.890 Hormone replacement therapy; Z79.899 Other long term (current) drug therapy
CPT/HCPCS: 36415; 71045; 74176; 74181; 80048; 80053; 80061; 80076; 81003; 83690; 83735; 83880; 84484; 85025; 85610; 96374; 96375; 99285; C9113; J1650; J2405; J3475; J7030; J7120

== ENCOUNTER 2022-12-31 15:36 | Inpatient (IN) | payer OTHER ==
--- OUTSIDE RECORDS SUMMARY | 2022-12-31 15:51 | XMS REPORT | Continuity of Care Document ---
:[address] [facility] t Address [address] [place] [address] [place] [id number] Care Team Providers Name Role Phone No, Pcp [facility] Primary Care Physician Unavailable BRODIE JANSEN Attending Clinician Unavailable HUA JUSTICE Attending Clinician Unavailable LUCY MEANS Attending Clinician Unavailable LUCY MEANS Attending Clinician Unavailable TOYA GUNTER Attending Clinician Unavailable TOYA GUNTER Attending Clinician Unavailable Lab, Ang - Db Attending Clinician Unavailable Hua Brothers Attending Clinician Anderson Francisco RN Attending Clinician Unavailable DERIC SANTOS Attending Clinician Unavailable Tez Moore Attending Clinician Deric Santos DO Attending Clinician TITUS MARIN Attending Clinician Unavailable Titus Marin DO Attending Clinician Jenniffer Olivier RN Attending Clinician Unavailable RADU TREADWELL Attending Clinician Unavailable Perla Perry Attending Clinician Radu Treadwell MD Attending Clinician Doctor Unassigned, [place] Attending Clinician Unavailable Josh Hodge MD Attending Clinician Lucy Shaffer MD Attending Clinician Jh Carroll LVN Attending Clinician Unavailable Unknown, Attending Attending Clinician Unavailable UNKNOWN, ATTENDING Attending Clinician Unavailable CHETNA BARNARD Attending Clinician Unavailable Evon POSTAL SUPERVISOR, Chetna Attending Clinician BLAIR GALINDO Attending Clinician Unavailable BLAIR GALINDO Attending Clinician Unavailable HORTENSIA SHANKS Attending Clinician Unavailable Yuliana INMAN, Pam Valiente Attending Clinician LUCY SHAFFER Attending Clinician Unavailable Taras US Attending Clinician Unavailable Taras Mckeon Attending Clinician MAURIZIO GALLARDO Attending Clinician Unavailable YOSEF NAPIER Attending Clinician Unavailable Emery PENA, Sayra Duncan Attending Clinician Unavailable ANASTASIA KRISHNAN Attending Clinician Unavailable Lennox Crystal MD Attending Clinician Anastasia Krishnan MD Attending Clinician MOSHE HANEY Attending Clinician Unavailable Urszula Baeza MD Attending Clinician Moshe Haney MD Attending Clinician Wendy Mario LMSW Attending Clinician Yefri Claudio MD Attending Clinician Shelby Coronel Attending Clinician Yosef Napier MD Attending Clinician Debra Pearce RN Attending Clinician PAM BRIDGES Attending Clinician Unavailable CATALINA COSTA Attending Clinician Unavailable Catalina Costa DO Attending Clinician Anupama POSTAL SUPERVISOR, Malcolm B Attending Clinician MALCOLM ALTMAN Attending Clinician Unavailable Pob, Adc Lab Main Attending Clinician Unavailable Jez POSTAL SUPERVISOR, Mike Attending Clinician MIKE STORY Attending Clinician Unavailable Zack INMAN, Nyla Nguyen Attending Clinician [phone] Adri ALBARRAN, Kary Ruiz Attending Clinician KARISHMA TENA Attending Clinician Unavailable CINDY RODRIGUEZ Attending Clinician Unavailable Cindy Rodriguez MD Attending Clinician ALEXIS XIE Attending Clinician Unavailable Tamiko PENA, Keya Attending Clinician Lab, Adc Fam Pob I Attending Clinician Unavailable Machelle INMAN, Dangelo Antoine Attending Clinician Dawna INMAN, Eli Attending Clinician Jeaneth INMAN, Yefri Correia Attending Clinician Chon INMAN, Sandra Escalante Attending Clinician Ethel INMAN, Alexis Mcrae Attending Clinician Kamille Varma CRNA Attending Clinician Trevor INMAN, Preston Anna Attending Clinician Jaquelin POSTAL SUPERVISOR, Eligio Aguilar Attending Clinician Kaela POSTAL SUPERVISOR, Lizet Ruiz Attending Clinician Maurice Chaudhary MD Attending Clinician Provider, [facility] Attending Clinician Unavailable Caterina SANTOS, Rosa Arndt Attending Clinician Unavailable Apolinar GONZALEZ, Nidhi Duncan Attending Clinician NIDHI JIANG Attending Clinician Unavailable Sami INMAN, Maurizio Attending Clinician LEXIE DRAKE Attending Clinician Unavailable Vidal INMAN, Lexie Whiteside Attending Clinician Sharon INMAN, Cain Li Attending Clinician JENNIFER FRAIRE Attending Clinician Unavailable REID ORDOÑEZ Attending Clinician Unavailable MELVIN HUERTA Attending Clinician Unavailable BRODIE JANSEN Admitting Clinician Unavailable DERIC SANTOS Admitting Clinician Unavailable Deric Santos DO Admitting Clinician RADU TREADWELL Admitting Clinician Unavailable Radu Treadwell MD Admitting Clinician Taras US Admitting Clinician Unavailable ANASTASIA KRISHNAN Admitting Clinician Unavailable Anastasia Krishnan MD Admitting Clinician MOSHE HANEY Admitting Clinician Unavailable Moshe Haney MD Admitting Clinician TITUS MARIN Admitting Clinician Unavailable Yefri Claudio MD Admitting Clinician YEFRI CLAUDIO Admitting Clinician Unavailable CATALINA COSTA Admitting Clinician Unavailable Eli Toney MD Admitting Clinician Maurice Chaudhary MD Admitting Clinician MAURIZIO GALLARDO Admitting Clinician Unavailable JENNIFER FRAIRE Admitting Clinician Unavailable MELVIN HUERTA Admitting Clinician Unavailable Payers Payer Name Policy Type Policy Number Effective Date Expiration Date [facility] [id number] 2018 MEDICAID 00:00:00 [employer]NA MEDICARE [id number] 2020 00:00:00 MEDICARE PART A \\T\\ [id number] 2019 B 00:00:00 MEDICAID OF [place] [id number] Problems Condition Condition Condition Status Onset Resolution Last Treating Co mments Source Name Details Category Date Date Treatment Clinician Date Calculus Calculus Disease Active Unive rs of right of right 12-18 ity of kidney kidney 00:00: [address] Elevated Elevated Disease Active Unive rs liver liver 12-18 ity of function function 00:00: [place] tests tests [address] [place] [address] Current Current Disease Active Univers every day every day 12-18 ity of smoker smoker 00:00: [address] Abdominal Abdominal Disease Active Uni vers pain, pain, 8-06 ity of unspecifie unspecifie [place] 00 Medical abdominal abdominal Bran ch location location Obesity Obesity Disease Active Univers (BMI (BMI 8-06 ity of 30-39.9) 30-39.9) 00:00: [place] [facility] Low libido Low libido Disease Active U nivers 6-05 ity of 00:00: [place] [facility] Need for Need for Disease Active Unive rs vaccinatio vaccinatio 6-05 it y of n n 00:00: [place] [facility] Other Other Disease Active Univers seborrheic seborrheic 11-27 it y of dermatitis dermatitis 00:00: [place] [facility] Acquired Acquired Disease Active Unive rs hypothyroi hypothyroi 11-27 it y of dism dism 00:00: [place] [facility] Neuropathy Neuropathy Disease Active U nivers involving involving 8 ity of both lower both lower 00:[place]: [place] extremitie extremitie 00 Me dical s s Branch Esophagiti Esophagiti Disease Active U nivers s s 11-27 ity of 00:00: [place] [facility] Chronic Chronic Disease Active Univers obstructiv obstructiv 11-27 it y of e e 00:00: [place] pulmonary pulmonary 00 Medi julieta disease, disease, Branch unspecifie unspecifie d COPD d COPD type type Anxiety Anxiety Disease Active Univers and and 11-27 ity of depression depression 00:00: [place] [facility] [place] Encounter Encounter Disease Active Uni vers to to 8 ity of establish establish 00:00: [facility] care care Medical Branch Cellulitis Cellulitis Disease Active 2020-04 U nivers 1-07 ity of 00:00: [place] [facility] Pancreatit Pancreatit Disease Active 2020-04 U nivers is, is, 0-30 ity of recurrent recurrent 00:[place] E46 E46 Disease Active Univers Unspecifie Unspecifie 9-17 it y of d severe d severe 00:00: [place] protein-ca protein-ca 00 Nv dical orestes orestes Branch malnutriti malnutriti on on E44.0 E44.0 Disease Active Univers Moderate Moderate 8-27 ity of protein protein 00:00: [place] calorie calorie 00 Medical malnutriti malnutriti Br [...] abdominal 1-10 ity of pain pain 00:00: [place] [facility] Gallstone Gallstone Disease Active 2019-04 Overview: Univers pancreatit pancreatit 1-10 Formattin ity of is is 00:00: g of this [place] 00 note Medical might be Branch different from the original. Added automatic ally from request for surgery [id number] Acute Acute Disease Active 2019-04 Univers pancreatit pancreatit 0-30 it y of is is 00:00: [place] 00 Medical Branch Epigastric Epigastric Disease Active 2019-04 Overview : Univers pain pain 0-29 Formattin ity of 00:00: g of this [place] 00 note Medical might be Branch different from the original. Added automatic ally from request for surgery [id number] Dysphagia, Dysphagia, Disease Active 2019-04 Overview : Univers unspecifie unspecifie 0-29 Formattin ity of d type d type 00:00: g of this [place] 00 note Medical might be Branch different from the original. Added automatic ally from request for surgery [id number] Pancreatit Pancreatit Disease Active 2019-04 U nivers is is 0-07 ity of 00:00: [place] 00 Medical Branch Dehydratio Dehydratio Disease Active 2020- U nivers n n 0-06 ity of 00:00: [place] 00 Medical Branch Aphonia Aphonia Disease Active 2020-0 Univers 1-13 ity of 00:00: [place] [address] Medical Branch Neck Neck Disease Active 2019- [facility] infection infection 5-14 [facility] 00:[facility] Medical 00 Center S/P right S/P right Disease Recurre [facility]- [facility] ALT flap ALT flap nce 4-16 [facility] graft graft 00:[facility]: Medical 00 Center Anemia of Anemia of Disease Recurre [facility]- [facility] chronic chronic nce 4-16 [facility] disease disease 00:00: Medical 00 Center S/P S/P Disease Active 2019- [facility] laryngecto laryngecto 4-16 [facility] k[facility] my my 00:00: [facility] 00 Center S/P S/P Disease Active 2019- [facility] percutaneo percutaneo 4-16 [facility] kes us us 00:00: Medical endoscopic endoscopic 00 Ce nter gastrostom gastrostom y (PEG) y (PEG) tube tube placement placement Tracheosto Tracheosto Disease Recurre [address] [facility] my care my care nce 4-11 [facility] 00:[facility]: Medical 00 Center History of History of Disease Recurre [address] [facility] laryngeal laryngeal nce 4-11 [facility] cancer cancer 00:00: Medical 00 Center Acute on Acute on Disease Recurre 2019- [facility] chronic chronic nce 3-16 [facility] respirator respirator 00:00: Me dical y failure y failure 00 Cent er with with hypoxemia hypoxemia 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:00: Medical carcinoma carcinoma 00 Cent er of larynx of larynx Leukocytos Leukocytos Disease Active 2019- [facility] is is 3-12 [facility] 00[facility]: Medical 00 Center Presence Presence Disease Recurre 2019- [facility] of of nce 3-11 [facility] tracheosto tracheosto 00:00: Me dical my my 00 Center Laryngeal Laryngeal Disease Active 2019- [facility] mass mass 3-11 [facility] 00:00: Medical 00 Center Tracheal Tracheal Disease Active 2019- [facility] t stenosis stenosis 3-11 [facility] 00:[facility]: Medical 00 Center Laryngeal Laryngeal Disease Active 2019- [facility] mass mass 3-11 [facility] 00:00: Medical 00 Center Laryngeal Laryngeal Problem Active Com mon cancer cancer [facility] Tracheosto Tracheosto Problem Active Arash hernandez my care my care [facility] Chronic Chronic Problem Active Common obstructiv obstructiv Sp amada e e - [facility] pulmonary pulmonary St disease, disease, [facility] unspecifie unspecifie Me dical d COPD d COPD Center type type Seasonal Seasonal Problem Active Commo n allergies allergies Spir it - [facility] GERD GERD Problem Active Common without without Spirit esophagiti esophagiti - [facility] Essential Essential Problem Active Com mon (primary) (primary) Spir it hypertensi hypertensi - [facility] on on [facility] Polyneurop Polyneurop Problem Active Arash hernandez athy in athy in Spirit diseases diseases - [facility] classified classified [facility] Postablati Postablati Problem Active Arash hernandez ve ve Spirit hypothyroi hypothyroi - [facility] dism dism [facility] Malignant Malignant Problem Active Com mon (primary) (primary) Spir it neoplasm, neoplasm, - CH I unspecifie unspecifie [facility] Reactive Reactive Problem Active Commo n depression depression Sp amada - [facility] Allergies, Adverse Reactions, Alerts Allergy Allergy Status Severity Reaction(s) Onset Inactive Treating Comm ents Source Name Type Date Date Clinician Sulfamet Propensi Active Rash 2020-04 Univer s hoxazole ty to 07 ity of -Trimeth adverse 00:00: [place] oprim reaction Medical s to Branch drug SULFAMET DRUG Active Med Rash 2020-04 Univers HOXAZOLE 04-07 ity of -TRIMETH 00:00: [place] OPRIM 00 Medical Branch Iodine Drug Active Nausea Only [facility] t And Allergy 5-14 [facility] Iodide 00:00: Medical Containi 00 Center ng Products IODINE Allergy Active Med Nausea [facility] AND 5-14 [facility] IODIDE 00:00: Medical CONTAINI 00 Center NG PRODUCTS IODINE Drug Active Med NAUSEA ONLY Unive rs AND Class 5-14 ity of IODIDE 00:00: [place] CONTAINI 00 Medical Branch PRODUCTS Ampicill Propensi Active Unknown - Uni vers in ty to See comments 5-13 ity of adverse 00:00: [place] reaction 00 Medical s Branch AMPICILL DRUG Active Unknown-Cmnt 2019-0 Un maddie IN INGREDI 5-13 ity of 00:00: [place] 00 Medical Branch Ampicill Propensi Active Hives, Rash 2019-[address] in ty to 4-11 [facility] adverse 00:00: Medical reaction 00 Center s Levoflox Propensi Active Hives, Rash 2019-[address] acin ty to 4-11 [facility] adverse 00:00: Medical reaction 00 Center s AMPICILL Allergy Active Low Hives 2019-[address] [facility] IN 4-11 [facility] 00:00: Medical 00 Center LEVOFLOX Allergy Active Low Hives 2019-[address] [facility] ACIN 4-11 [facility] 00:00: Medical 00 Center Penicill Propensi Active Rash 2019-0 Other Univer s ins ty to 4-11 reaction( ity of adverse 00:00: s): [place] reaction 00 Unknown - Medic al s See Branch comments PENICILL Drug Active Med Hives 2019-0 Univers INS Class 4-11 ity of 00:00: [place] [facility] LEVOFLOX DRUG Active Low Hives 2019-0 Univers ACIN INGREDI 4-11 ity of 00:00: [address] Iodine Adverse Active vomiting Common Reaction Spirit - [facility] Social History Social Habit Start Date Stop Date Quantity Comments Source History of tobacco Current smoker Un iversity of use [facility] Gender identity Universit y of [facility] Sexual orientation Univer sity of [facility] History SDOH [facility] Alcohol Std Drinks Medica l Center History SDOH [facility] Alcohol Binge Medical Ant ter Exposure to 2022-08-18 2022-08-28 Not sure [facility] SARS-CoV-2 (event) 00:00:00 15:38:00 [facility] History of Social 2022-08-28 2022-08-28 Univers ity of function 00:00:00 00:00:00 [facility] Tobacco use and 2021-11-27 2021-11-27 Smokeless tobacco Un iversity of exposure 00:00:00 00:00:00 non-user [facility] Alcohol Comment 2020-08-22 2020-08-2204/05 of corinna per [facility] 00:00:00 00:00:00 week [facility] Education 2020-01-29 2020-01-29 21 University 00:00:00 00:00:00 [place] [facility] History SDOH 2020-01-29 2020-01-29 5 University o f Financial 00:00:00 00:00:00 [place] [facility] History SDOH Food 2020-01-29 2020-01-29 1 Univers ity of Worry 00:00:00 00:00:00 [place] [facility] History SDOH Food 2020-01-29 2020-01-29 1 Univers ity of Scarcity 00:00:00 00:00:00 [place] [facility] History SDOH 2020-01-29 2020-01-29 2 [place] [facility] f [facility] Med 00:00:00 00:00:00 [place] Medic al [facility] History SDAR 2020-01-29 2020-01-29 2 [place] o Transport Non-Med 00:00:00 00:00:00 [facility] edical Branch Alcohol intake 2018-07-15 2018-07-15 Current non-drinker [facility] 00:[facility]00 of alcohol [facility] (finding) Tobacco Comment 2018-06-06 2018-06-[address] [facility] 00:00:00 00:00:00 Medical Center History [facility] 2018-06-06 2018-06-[address] [facility] Alcohol Frequency 00:00:00 00:00:00 Medical Center Sex Assigned At [address] [facility] 00:00:00 00:00:00 Medical Center Smoking Status Start Date Stop Date Source Occasional tobacco 2022-11-13 00:00:00 [facility] smoker Medical Branch Ex-smoker 2021-11-27 00:00:00 2021-11-27 [facility] 00:00:00 Medical Branch Medications Ordered Filled Start [...] Until Discontinu ed, Routine ondansetron 2022- Yes [id number] 4mg Take 1 Univers 4 mg 9-01 10-02 tablet by ity of disintegrat 00:00: 04:59 [place] tablet 00 :00 every 8 Medica l (eight) Branch hours as needed for Nausea and Vomiting (N/V) for up to 30 days. ondansetron 2022- Yes [id number] 4mg Take 1 Univers 4 mg 9-01 10-02 tablet by ity of disintegrat 00:00: 04:59 [place] tablet 00 :00 every 8 Medica l (eight) Branch hours as needed for Nausea and Vomiting (N/V) for up to 30 days. ondansetron 2022- Yes [id number] 4mg Take 1 Univers 4 mg 9- 10-02 tablet by ity of disintegrat 00:00: 04:59 [place] tablet 00 :00 every 8 Medica l (eight) Branch hours as needed for Nausea and Vomiting (N/V) for up to 30 days. ondansetron 2022- Yes [id number] 4mg Take 1 Univers 4 mg 9-01 10-02 tablet by ity of disintegrat 00:00: 04:59 [place] tablet 00 :00 every 8 Medica l (eight) Branch hours as needed for Nausea and Vomiting (N/V) for up to 30 days. ondansetron 2022- Yes [id number] 4mg Take 1 Univers 4 mg 9-01 10-02 tablet by ity of disintegrat 00:00: 04:59 [place] tablet 00 :00 every 8 Medica l (eight) Branch hours as needed for Nausea and Vomiting (N/V) for up to 30 days. ondansetron 2022- Yes [id number] 4mg Take 1 Univers 4 mg 9-01 10-02 tablet by ity of disintegrat 00:00: 04:59 [place] tablet 00 :00 every 8 Medica l (eight) Branch hours as needed for Nausea and Vomiting (N/V) for up to 30 days. ondansetron 2022- Yes [id number] 4mg Take 1 Univers 4 mg 9-01 10-02 tablet by ity of disintegrat 00:00: 04:59 [place] tablet 00 :00 every 8 Medica l (eight) Branch hours as needed for Nausea and Vomiting (N/V) for up to 30 days. ondansetron 2022- Yes [id number] 4mg Take 1 Univers 4 mg 9- 10-02 tablet by ity of disintegrat 00:00: 04:59 [place] tablet 00 :00 every 8 Medica l (eight) Branch hours as needed for Nausea and Vomiting (N/V) for up to 30 days. ondansetron 2022- Yes [id number] 4mg Take 1 Univers 4 mg 9- 10-02 tablet by ity of disintegrat 00:00: 04:59 [place] tablet 00 :00 every 8 Medica l (eight) Branch hours as needed for Nausea and Vomiting (N/V) for up to 30 days. ondansetron 2022- Yes [id number] 4mg Take 1 Univers 4 mg 9- 10- tablet by ity of disintegrat 00:00: 04:59 [place] tablet 00 :00 every 8 Medica l (eight) Branch hours as needed for Nausea and Vomiting (N/V) for up to 30 days. ondansetron 2022- Yes [id number] 4mg Take 1 Univers 4 mg 9- [...] 4647 1{tbl} Take 1 U nivers -acetaminop -09 tablet by it y of hen 5-325 00:00: 04:59 mouth [place] mg tablet 00 :00 every 6 Medical (six) Branch hours as needed for Pain (scale 7-10) for up to 7 days. Indication s: acute pain HYDROcodone 2022- Yes 4647 1{tbl} Take 1 U nivers -acetaminop -04 09- tablet by it y of hen 5-325 00:00: 04:59 mouth [place] mg tablet 00 :00 every 6 Medical (six) Branch hours as needed for Pain (scale 7-10) for up to 7 days. Indication s: acute pain HYDROcodone 2022-2022- Yes 4647 1{tbl} Take 1 U nivers -acetaminop 9-04 09- tablet by it y of hen 5-325 [...] 4647 1{tbl} Take 1 U nivers -acetaminop -04 09- tablet by it y of hen 5-325 00:00: 04:59 mouth [place] mg tablet 00 :00 every 6 Medical (six) Branch hours as needed for Pain (scale 7-10) for up to 7 days. Indication s: acute pain FENTanyl PF 2022- No 50ug 50 mcg, Un maddie (SUBLIMAZE 11-29 Slow IV ity o f (PF)) 22:31: 12:30 Push, [place] injection 10 :10 Q3HPRN, Medical 50 mcg Starting Branch on Patricia 11/29/22 at 1731, Until 11/30/22 at 0730, Routine, Pain (scale 7-10) omeprazole Yes 40mg 40 mg, Unive rs (PRILOSEC) 11-29 Oral, ity of capsule 40 14:00: DAILY, [place] mg 00 First dose Medical on [place] Branch 11/29/22 at 0900, Until Discontinu ed escitalopra Yes 20mg 20 mg, Univ ers m oxalate 11-29 Oral, QAM, ity of (LEXAPRO) 14:00: [place] dose [place] tablet 20 00 on [facility] Medical mg 11/29/22 at Branch 0900, Until Discontinu ed, Routine ARIPiprazol 0 Yes 5mg 5 mg, Unive rs e (ABILIFY) 11-29 Oral, ity of tablet 5 mg 14:00: [place]ILY, [place] First dose Medical on [facility] Branch 11/29/22 at 0900, Until Discontinu ed, Routine enoxaparin 0 Yes 40mg 40 mg, [place] [facility] (LOV[facility]OX) 11-29 Subcutaneo ity of injection 14:00: us, DAILY, [place] 40 mg 00 First dose Medical on [facility] Branch 11/29/22 at 0900, Until Discontinu ed, Routine lipase-prot 0 Yes 1{capsu 1 capsule, Univers ease-amylas 11-29 le} Oral, TID ity of e (CREON) 13:00: MEALS, [place] 12,000-38,0 00 First dose Me dical 00 -60,000 on [facility] unit 11/29/22 at capsule 1 0800, capsule Until Discontinu ed, Routine levothyroxi 0 Yes 150ug 150 mcg, U nivers ne 11-29 Oral, ity of (SYNTHROID) 11:00: QAM-0600, [place] tablet 150 00 First dose Med ical mcg on [facility] Branch 11/29/22 at 0600, Until Discontinu ed, Routine gabapentin 0 Yes 800mg 800 mg, Uni vers (NEURONTIN) 11-29 Oral, TID, it y of tablet 800 01:15: First dose [place] mg 00 on [facility] Medical 11/28/22 at Branch 2015, Until Discontinu ed, Routine albuterol 0 Yes 2{puff} 2 Puff, Un maddie (VENTOLIN) 11-29 Inhalation ity of inhaler 2 00:58: , Q6HPRN, Real as Puff 39 Starting Medical on Sat Branch 11/28/22 at 1958, Until Discontinu ed, Routine, Wheezing, Shortness of Breath lactated 2022-0 202- No 1000mL at 200 [facility] ers ringers IV 11-28 mL/hr, ity of infusion 22:30: 23:56 1,000 [...] Yes 1{tbl} 1 tablet, Univers -acetaminop 11-28 09-01 Oral, ity of hen (NORCO 22:16: 22:15 [...] 1000mL at 999 Uni vers (NS) bolus 11-28 0830 mL/hr, ity of infusion 22:15: 22:33 1,000 mL, Real as 1,000 mL 00 :00 IV Medical Infusion, Branch ONCE, 1 dose, On Sat11/28/22 at 1715, KENIA ondansetron 0 2022- No 4mg 4 mg, Slow Univers (ZOFRAN 11-28 IV Push, ity of (PF)) 22:15: 21:29 ONCE, 1 [place] injection 4 00 :00 dose, On Medi julieta mg Wed Branch 11/28/22 at 1715, KENIA morpHINE (4 0 2022- No 4mg 4 mg, Slow Univers mg/mL) 11-28 IV Push, ity of injection 4 22:15: 21:29 ONCE, 1 [place] mg 00 :00 dose, On Medical Wed Branch 11/28/22 at 1715, KENIA ondansetron 2022-0 Yes [id number] 4mg Take 1 Univers 4 mg 8-17 tablet by ity of disintegrat 00:00: mouth [place] ing tablet 00 every 8 Medica l (eight) Branch hours as needed for Nausea and Vomiting (N/V). albuterol 2022-0 Yes [id number] 2{puff} Inhale 2 Univers 90 8-17 Puffs ity of mcg/actuati 00:00: every 6 Real as on inhaler 00 (six) Medical hours as Branch needed for Wheezing or Shortness of Breath. ARIPiprazol 2022-0 Yes [id number] 5mg Take 1 Univers e 5 mg 8-17 tablet by ity of tablet 00:00: mouth in [place] 00 the Medical morning. Branch ondansetron 2022-0 Yes [id number] 4mg Take 1 Univers 4 mg 8-17 tablet by ity of disintegrat 00:00: mouth [place] ing tablet 00 every 8 Medica l (eight) Branch hours as needed for Nausea and Vomiting (N/V). albuterol 2022-0 Yes [id number] 2{puff} Inhale 2 Univers 90 8-17 Puffs ity of mcg/actuati 00:00: every 6 Real as on inhaler 00 (six) Medical hours as Branch needed for Wheezing or Shortness of Breath. ARIPiprazol 2022-0 Yes [id number] 5mg Take 1 Univers e 5 mg 8-17 tablet by ity of tablet 00:00: mouth in [place] 00 the Medical morning. Branch ondansetron 2022-0 Yes [id number] 4mg Take 1 Univers 4 mg 8-17 tablet by ity of disintegrat 00:00: mouth [place] ing tablet 00 every 8 Medica l (eight) Branch hours as needed for Nausea and Vomiting (N/V). albuterol 2022-0 Yes [id number] 2{puff} Inhale 2 Univers 90 8-17 Puffs ity of mcg/actuati 00:00: every 6 Real as on inhaler 00 (six) Medical hours as Branch needed for Wheezing or Shortness of Breath. ARIPiprazol 2022-0 Yes [id number] 5mg Take 1 Univers e 5 mg 8-17 tablet by ity of tablet 00:00: mouth in [place] 00 the Medical morning. Branch ondansetron 2022-0 Yes [id number] 4mg Take 1 Univers 4 mg 8-17 tablet by ity of disintegrat 00:00: mouth [place] ing tablet 00 every 8 Medica l (eight) Branch hours as needed for Nausea and Vomiting (N/V). albuterol 2022-0 Yes [id number] 2{puff} Inhale 2 Univers 90 8-17 Puffs ity of mcg/actuati 00:00: every 6 Real as on inhaler 00 (six) Medical hours as Branch needed for Wheezing or Shortness of Breath. ARIPiprazol 2022-0 Yes [id number] 5mg Take 1 [facility] e 5 mg 8-17 tablet by ity of tablet 00:00: mouth in [place] 00 the Medical morning. Branch albuterol 2022-0 Yes [id number] 2{puff} Inhale 2 [facility] 90 8-17 Puffs ity of mcg/actuati 00:00: every 6 [place] on inhaler 00 (six) Medical hours as Branch needed for Wheezing or Shortness of Breath. ARIPiprazol 2022-0 Yes [id number] 5mg Take 1 [facility] e 5 mg 8-17 tablet by ity of tablet 00:00: mouth in [place] 00 the Medical morning. Branch albuterol 2022-0 Yes [id number] 2{puff} Inhale 2 [facility] 90 8-17 Puffs ity of mcg/actuati 00:00: every 6 [place] on inhaler 00 (six) Medical hours as Branch needed for Wheezing or Shortness of Breath. ARIPiprazol 2022-0 Yes [id number] 5mg Take 1 [facility] e 5 mg 8-17 tablet by ity of tablet 00:00: mouth in [place] 00 the Medical morning. Branch albuterol 2022-0 Yes [id number] 2{puff} Inhale 2 [facility] 90 8-17 Puffs ity of mcg/actuati 00:00: every 6 [place] on inhaler 00 (six) Medical hours as Branch needed for Wheezing or Shortness of Breath. ARIPiprazol 2022-0 Yes [id number] 5mg Take 1 [facility] e 5 mg 8-17 tablet by ity of tablet 00:00: mouth in [place] 00 the Medical morning. Branch albuterol 2022-0 Yes [id number] 2{puff} Inhale 2 [facility] 90 8-17 Puffs ity of mcg/actuati 00:00: every 6 [place] on inhaler 00 (six) Medical hours as Branch needed for Wheezing or Shortness of Breath. ARIPiprazol 2022-0 Yes [id number] 5mg Take 1 [facility] e 5 mg 8-17 tablet by ity of tablet 00:00: mouth in [place] 00 the Medical morning. Branch albuterol 2022-0 Yes [id number] 2{puff} Inhale 2 [facility] 90 8-17 Puffs ity of mcg/actuati 00:00: every 6 [place] on inhaler 00 (six) Medical hours as Branch needed for Wheezing or Shortness of Breath. ARIPiprazol 2022-0 Yes [id number] 5mg Take 1 [facility] e 5 mg 8-17 tablet by ity of tablet 00:00: mouth in [place] 00 the Medical morning. Branch albuterol 2022-0 Yes [id number] 2{puff} Inhale 2 [facility] 90 8-17 Puffs ity of mcg/actuati 00:00: every 6 [place] on inhaler 00 (six) Medical hours as Branch needed for Wheezing or Shortness of Breath. ARIPiprazol 2022-0 Yes [id number] 5mg Take 1 [facility] e 5 mg 8-17 tablet by ity of tablet 00:00: mouth in [place] 00 the Medical morning. Branch albuterol 2022-0 Yes [id number] 2{puff} Inhale 2 [facility] 90 8-17 Puffs ity of mcg/actuati 00:00: every 6 [place] on inhaler 00 (six) Medical hours as Branch needed for Wheezing or Shortness of Breath. ARIPiprazol 2022-0 Yes [id number] 5mg Take 1 [facility] e 5 mg 8-17 tablet by ity of tablet 00:00: mouth in [place] 00 the Medical morning. Branch albuterol 2022-0 Yes [id number] 2{puff} Inhale 2 [facility] 90 8-17 Puffs ity of mcg/actuati 00:00: every 6 [place] on inhaler 00 (six) Medical hours as Branch needed for Wheezing or Shortness of Breath. ARIPiprazol 0 Yes [id number] 5mg Take 1 [facility] e 5 mg 8-17 tablet by ity of tablet 00:00: mouth in [place] 00 the Medical morning. Branch albuterol 2022-0 Yes [id number] 2{puff} Inhale 2 [facility] 90 8-17 Puffs ity of mcg/actuati 00:00: every 6 [place] on inhaler 00 (six) Medical hours as Branch needed for Wheezing or Shortness of Breath. ARIPiprazol 0 Yes [id number] 5mg Take 1 [facility] e 5 mg 8-17 tablet by ity of tablet 00:00: mouth in [place] 00 the Medical morning. Branch albuterol 0 Yes [id number] 2{puff} Inhale 2 [facility] 90 8-17 Puffs ity of mcg/actuati 00:00: every 6 [place] on inhaler 00 (six) Medical hours as Branch needed for Wheezing or Shortness of Breath. ARIPiprazol 0 Yes [id number] 5mg Take 1 [facility] e 5 mg 8-17 tablet by ity of tablet 00:00: mouth in [place] 00 the Medical morning. Branch albuterol 0 Yes [id number] 2{puff} Inhale 2 [facility] 90 8-17 Puffs ity of mcg/actuati 00:00: every 6 [place] on inhaler 00 (six) Medical hours as Branch needed for Wheezing or Shortness of Breath. ARIPiprazol 2022-0 Yes [id number] 5mg Take 1 [facility] e 5 mg 8-17 tablet by ity of tablet 00:00: mouth in [place] 00 the Medical morning. Branch ondansetron 0 2022- No [id number] 4mg Take 1 [facility] 4 mg 8-17 11-30 tablet by ity of disintegrat 00:00: 00:[place] tablet 00 :00 every 8 Medica l (eight) Branch hours as needed for Nausea and Vomiting (N/V). HYDROcodone 2022- Yes [id number] 1{tbl} Take 1 [...] at 1700, Until Discontinu ed, Routine omeprazole 2022-0 Yes 20mg 20 mg, [place] [facility] (PRIL[facility]SEC) 8-15 Oral, ity of capsule 20 14:00: DAILY, [place] mg 00 First dose Medical on [facility] 11/13/22 at 0900, Until Discontinu ed escitalopra 2022-0 Yes 20mg 20 mg, [place] [facility] ers m oxalate 815 Oral, QAM, ity of (LEXAPRO) 14:00: [place] tablet 20 00 on [facility] Medical mg 11/13/22 at Branch 0900, Until Discontinu ed, Routine ARIPiprazol 0 Yes 5mg 5 mg, [facility] rs e (ABILIFY) 815 Oral, ity of tablet 5 mg 14:00: DAILY, [place] 00 First dose Medical on [facility] 11/13/22 at 0900, Until Discontinu ed, Routine gabapentin 0 Yes 800mg 800 mg, Uni vers (NEURONTIN) 815 Oral, BID, it y of tablet 800 13:00: First [place] mg 00 on [facility] 11/13/22 at Branch 0800, Until Discontinu ed, Routine lipase-prot 0 Yes 1{capsu 1 capsule, Univers ease-amylas 11-13 le} Oral, TID ity of e (CREON) 13:00: MEALS, [place] 12,000-38,0 00 First dose Me dical 00 -60,000 on [facility] unit 11/13/22 at capsule 1 0800, capsule Until Discontinu ed, Routine levothyroxi 0 Yes 150ug 150 mcg, U nivers ne 15 Oral, ity of (SYNTHROID) 11:00: QAM-0600, [place] tablet 150 00 First dose Med ical mcg on [facility] 11/13/22 at 0600, Until Discontinu ed, Routine lactated 2022-0 2022- No 1000mL at 125 Univ ers ringers IV 11-13 08-15 mL/hr, ity of infusion 08:45: 16:33 1,000 mL, [place] 1,000 mL 00 :43 IV Medical Infusion, Branch CONTINUOUS , Starting on Sat11/13/22 at 0345, Until Sat11/13/22 at 1133, Routine albuterol Yes 2{puff} 2 Puff, [facility] (VENTOLIN) 11-13 Inhalation ity of inhaler 2 08:32: , Q6HPRN, [place] Puff 30 Starting Medical on Sat Branch 11/13/22 at 0332, Until Discontinu ed, Routine, Wheezing, Shortness of Breath ondansetron 0 Yes 4mg 4 mg, Slow Univers (ZOFRAN 11-13 IV Push, ity of (PF)) 08:29: Q6HPRN, [place] injection 4 35 Starting Medi julieta mg on Sat11/13/22 at 0329, Until Discontinu ed, Routine, Nausea and Vomiting (N/V) morpHINE (2 2022- No 2mg 2 mg, Slow Univers mg/mL) 11-13 0816 IV Push, ity of injection 2 08:29: 08:28 Q4HPRN, [place] mg 25 :25 Starting Medical on Sat11/13/22 at 0329, Until Sat11/14/22 at 0328, Routine, Pain (scale 7-10) HYDROcodone 2022- Yes 1{tbl} 1 tablet, Univers -acetaminop 11-1317 Oral, ity of hen (NORCO 08:29: 08:28 Q6HPRN, [place] 5) 5-325 mg 21 :21 Starting Medi julieta tablet 1 on Sat tablet 11/13/22 at 0329, Until [place] 11/15/22 at 0328, Routine, Pain (scale 4-6) acetaminoph Yes 650mg 650 mg, [facility] [place] en 11-13 Oral, ity of (TYLENOL) 08:29: Q6HPRN, [place] tablet 650 16 Starting Medic al mg on Sat11/13/22 at 0329, Until Discontinu ed, Routine, Pain (scale 1-3) NaCl 0.9% 2022- No 1000mL at 100 Uni vers (NS) IV 11-13 08-16 mL/hr, ity of infusion 07:00: 14:50 Intravenou [place] 1,000 mL 00 :31 s, Medical CONTINUOUS Branch , Starting on Sat11/13/22 at 0200, Until Sat11/14/22 at 0950, [place] ondansetron 2022- No 4mg 4 mg, Slow Univers (ZOFRAN 11-13 IV Push, ity of (PF)) 04:30: 04:29 ONCE, 1 [place] injection 4 00 :00 dose, On Medi julieta mg Sat Branch 11/12/22 at 2330, KEN[place] morpHINE (2 2022- No 2mg 2 mg, Slow Univers mg/mL) 11-13 IV Push, ity of injection 2 04:30: 04:31 ONCE, 1 [place] mg 00 :00 dose, On Medical Mon Branch 11/12/22 at 2330, STAT ondansetron 2022- No 4mg 4 mg, Slow Univers (ZOFRAN 11-13 IV Push, ity of (PF)) 02:15: 02:25 ONCE, 1 [place] injection 4 00 :00 dose, On Medi julieta mg Sat11/12/22 at 2115, KENIA FENTanyl PF No 25ug 25 mcg, [facility] (SUBLIMAZE 11-13 Slow IV ity o f (PF)) 02:15: 02:25 Push, [place] injection 00 :00 ONCE, 1 Medical 25 mcg dose, On Branch Sat11/12/22 at 2115, STAT HYDROcodone 2022- Yes [id number] 1{tbl} Take 1 U nivers -acetaminop 8- 08-16 tablet by it y of hen [...] [place] mg 29 Starting Medical on [facility] 11/05/22 at 1312, Until Discontinu ed, Routine, Pain (scale 7-10) omeprazole 2022-0 Yes 40mg 40 mg, Unive rs (PRILOSEC) 11-05 Oral, ity of capsule 40 14:00: DAILY, [place] mg 00 First dose Medical on [facility] 11/05/22 at 0900, Until Discontinu ed escitalopra 2022-0 Yes 20mg 20 mg, Univ ers m oxalate 11-05 Oral, QAM, ity of (LEXAPRO) 14:00: First dose [place] tablet 20 00 on [facility] 11/05/22 at Branch 0900, Until Discontinu ed, Routine ARIPiprazol 2022-0 Yes 5mg 5 mg, Unive rs e (ABILIFY) 11-05 Oral, ity of tablet 5 mg 14:00: DAILY, [place] 00 First dose Medical on [facility] 11/05/22 at 0900, Until Discontinu ed, Routine enoxaparin 2022-0 Yes 40mg 40 mg, Unive rs (LOVENOX) 11-05 Subcutaneo ity of injection 14:00: us, DAILY, [place] 40 mg 00 First dose Medical on [facility] 11/05/22 at 0900, Until Discontinu ed, Routine gabapentin 2022-0 Yes 800mg 800 mg, Uni vers (NEURONTIN) 11-05 Oral, TID, it y of tablet 800 13:00: First dose [place] mg 00 on [facility] 11/05/22 at Branch 0800, Until Discontinu ed, Routine lipase-prot 2022-0 Yes 1{capsu 1 capsule, Univers ease-amylas 11-05 le} Oral, TID ity of e (CREON) 13:00: MEALS, [place] 12,000-38,0 00 First dose Me dical 00 -60,000 on [facility] unit 11/05/22 at capsule 1 0800, capsule Until Discontinu ed, Routine levothyroxi 2022-0 Yes 150ug 150 mcg, U nivers ne 11-05 Oral, ity of (SYNTHROID) 11:00: QAM-0600, [place] tablet 150 00 First dose Med ical mcg on Sat Branch 11/05/22 at 0600, Until Discontinu ed, Routine albuterol Yes 2{puff} 2 Puff, [place] (VENTOLIN) 11-05 Inhalation ity of inhaler 2 08:49: , Q6HPRN, [place] Puff 30 Starting Medical on Sat Branch 11/05/22 at 0349, Until Discontinu ed, Routine, Wheezing, Shortness of Breath atorvastati 2022- No 80mg Take 80 mg Univers n 80 mg 11-05 08-06 by mouth ity of tablet 03:50: 00:00 at [place] 46 :00 bedtime. Medical Branch nicotine Yes 1{patch 1 Patch, [facility] (NICODERM) 11-05 } Topical, ity o f 14 mg/24 hr 02:30: Administer [place] patch 1 00 over 24 Medical Patch Hours, Branch Q24H, First dose on Sat11/04/22 at 2130, Until Discontinu ed, Routine varenicline Yes [id number] 1mg Take 1 Univers (CHANTIX) 1 -07 tablet by ity of mg tablet 00:00: [place] 00 the Medical morning Branch and 1 tablet in the evening. varenicline Yes [id number] 1mg Take 1 [facility] (CHANTIX) 1 07 tablet by ity of mg tablet 00:00: [place] 00 the Medical morning Branch and 1 tablet in the evening. varenicline 0 2022- No [id number] 1mg Take 1 Univers (CHANTIX) 1 11-05 07-25 tablet by it y of mg tablet 00:00: 00:00 mouth in [place] 00 :00 the Medical morning Branch and 1 tablet in the evening. lactated Yes 1000mL at 150 Unive rs ringers IV 8-06 mL/hr, ity of infusion 22:15: 1,000 mL, [place] 1,000 mL 00 IV Medical Infusion, Branch CONTINUOUS , Starting on 11/04/22 at 1715, Until Discontinu ed, Routine ondansetron Yes 4mg 4 mg, Slow Univers (ZOFRAN 8 IV Push, ity of (PF)) 22:06: Q6HPRN, [place] injection 4 09 Starting Medi jluieta mg on [place] Branch 11/04/22 at 1706, Until Discontinu ed, Routine, Nausea and Vomiting (N/V) FENTanyl PF 2022- No 50ug 50 mcg, [facility] (SUBLIMAZE 11-04 Slow IV ity o f (PF)) 22:05: 18:14 Push, [place] injection 28 :02 Q3HPRN, Medical 50 mcg Starting Branch on [place] 11/04/22 at 1705, Until 11/05/22 at 1314, Routine, Pain (scale 7-10) HYDROcodone 2022- Yes 1{tbl} 1 tablet, Univers -acetaminop 11-04 Oral, ity of hen (NORCO 22:05: 22:04 Q6HPRN, [place] 5) 5-325 mg 23 :23 Starting Medi julieta tablet 1 on [facility] tablet 11/04/22 at 1705, Until 11/06/22 at 1704, Routine, Pain (scale 4-6) morpHINE (4 2022- No 4mg 4 mg, Slow Univers mg/mL) 11-04 IV Push, ity of injection 4 20:00: 20:22 ONCE, 1 [place] mg 00 :00 dose, On Medical [place] 11/04/22 Branch at 1500, STAT famotidine 2022- No 20mg 20 mg, Univ ers (PEPCID 11-04 Slow IV ity of (PF)) 20:00: 20:22 Push, [place] injection 00 :00 ONCE, 1 Medical 20 mg dose, On Branch [place] 11/04/22 at 1500, KENIA NaCl 0.9% 2022- No 1000mL at 999 Uni vers (NS) bolus 11-04 mL/hr, ity of infusion 19:30: 23:27 1,000 mL, [place] 1,000 mL 00 :00 IV Medical Piggyback, Branch ONCE, 1 dose, On [place] 11/04/22 at 1430, STAT NaCl 0.9% 2022- No 1000mL at 999 Uni vers (NS) bolus 11-04 mL/hr, ity of infusion 18:30: 19:53 1,000 mL, [place] 1,000 mL 00 :00 IV Medical Piggyback, Branch ONCE, 1 dose, On 11/04/22 at 1330, STAT morpHINE (4 2022- [...] mg 11/04/22 Branch at 1245, [place] ESCITALOPRA 0 Yes [id number] TAKE ONE Univers M OXALATE 8-02 TABLET BY ity o f 20 mg 00:00: MOUTH [place] tablet 00 EVERY Medical MORNING Branch ESCITALOPRA Yes [id number] TAKE ONE Univers M OXALATE 8-02 TABLET BY ity o f 20 mg 00:00: MOUTH [place] tablet 00 EVERY Medical MORNING Branch ESCITALOPRA 2022-0 Yes [id number] TAKE ONE Univers M OXALATE 8-02 TABLET BY ity o f 20 mg 00:00: MOUTH [place] tablet 00 EVERY Medical MORNING Branch ESCITALOPRA 0 Yes [id number] TAKE ONE Univers M OXALATE 8-02 TABLET BY ity o f 20 mg 00:00: MOUTH [place] tablet 00 EVERY Medical MORNING Branch ESCITALOPRA 2022-0 Yes [id number] TAKE ONE Univers M OXALATE 8-02 TABLET BY ity o f 20 mg 00:00: MOUTH [place] tablet 00 EVERY Medical MORNING Branch ESCITALOPRA 2022-0 Yes [id number] TAKE ONE Univers M OXALATE 8-02 TABLET BY ity o f 20 mg 00:00: MOUTH [place] tablet 00 EVERY Medical MORNING Branch ESCITALOPRA Yes [id number] TAKE ONE Univers M OXALATE 8-02 TABLET BY ity o f 20 mg 00:00: MOUTH [place] tablet 00 EVERY Medical MORNING Branch ESCITALOPRA Yes [id number] TAKE ONE Univers M OXALATE 8-02 TABLET BY ity o f 20 mg 00:00: MOUTH [place] tablet 00 EVERY Medical MORNING Branch ESCITALOPRA Yes [id number] TAKE ONE Univers M OXALATE 8-02 TABLET BY ity o f 20 mg 00:00: MOUTH [place] tablet 00 EVERY Medical MORNING Branch ESCITALOPRA Yes [id number] TAKE ONE Univers M OXALATE 8-02 TABLET BY ity o f 20 mg 00:00: MOUTH [place] tablet 00 EVERY Medical MORNING Branch ESCITALOPRA Yes [id number] TAKE ONE Univers M OXALATE 8-02 TABLET BY ity o f 20 mg 00:00: MOUTH [place] tablet 00 EVERY Medical MORNING Branch ESCITALOPRA Yes [id number] TAKE ONE Univers M OXALATE 8-02 TABLET BY ity o f 20 mg 00:00: MOUTH [place] tablet 00 EVERY Medical MORNING Branch ESCITALOPRA Yes [id number] TAKE ONE Univers M OXALATE 8-02 TABLET BY ity o f 20 mg 00:00: MOUTH [place] tablet 00 EVERY Medical MORNING Branch ESCITALOPRA Yes [id number] TAKE ONE Univers M OXALATE 8-02 TABLET BY ity o f 20 mg 00:00: MOUTH [place] tablet 00 EVERY Medical MORNING Branch ESCITALOPRA Yes [id number] TAKE ONE Univers M OXALATE 8-02 TABLET BY ity o f 20 mg 00:00: MOUTH [place] tablet 00 EVERY Medical MORNING Branch ESCITALOPRA Yes [id number] TAKE ONE Univers M OXALATE 8-02 TABLET BY ity o f 20 mg 00:00: MOUTH [place] tablet 00 EVERY Medical MORNING Branch ESCITALOPRA Yes [id number] TAKE ONE Univers M OXALATE 8-02 TABLET BY ity o f 20 mg 00:00: MOUTH [place] tablet 00 EVERY Medical MORNING Branch ESCITALOPRA Yes [id number] TAKE ONE Univers M OXALATE 8-02 TABLET BY ity o f 20 mg 00:00: MOUTH [place] tablet 00 EVERY Medical MORNING Branch ESCITALOPRA Yes [id number] TAKE ONE Univers M OXALATE 8-02 TABLET BY ity o f 20 mg 00:00: MOUTH [place] tablet 00 EVERY Medical MORNING Branch ESCITALOPRA Yes [id number] TAKE ONE Univers M OXALATE 8-02 TABLET BY ity o f 20 mg 00:00: MOUTH [place] tablet 00 EVERY Medical MORNING Branch ESCITALOPRA 2022-0 Yes [id number] TAKE ONE Univers M OXALATE 8-02 TABLET BY ity o f 20 mg 00:00: MOUTH [place] tablet 00 EVERY Medical MORNING Branch ESCITALOPRA 2022-0 Yes [id number] TAKE ONE Univers M OXALATE 8-02 TABLET BY ity o f 20 mg 00:00: MOUTH [place] tablet 00 EVERY Medical MORNING Branch ESCITALOPRA 2022-0 Yes [id number] TAKE ONE Univers M OXALATE 8-02 TABLET BY ity o f 20 mg 00:00: MOUTH [place] tablet 00 EVERY Medical MORNING Branch ESCITALOPRA 0 Yes [id number] TAKE ONE Univers M OXALATE 8-02 TABLET BY ity o f 20 mg 00:00: MOUTH [place] tablet 00 EVERY Medical MORNING Branch ESCITALOPRA 0 Yes [id number] TAKE ONE Univers M OXALATE 8-02 TABLET BY ity o f 20 mg 00:00: MOUTH [place] tablet 00 EVERY Medical MORNING Branch ESCITALOPRA 0 Yes [id number] TAKE ONE Univers M OXALATE 8-02 TABLET BY ity o f 20 mg 00:00: MOUTH [place] tablet 00 EVERY Medical MORNING Branch buPROPion 0 Yes [id number] 1{tbl} Take 1 Univers HCL, 7-25 tablet by ity of smoking 00:00: mouth in [facility] [place] [facility], 150 00 the Medical mg Tb12 morning. Branch Then in 3 days take one tablet by mouth twice a day, if the dose is too high just take once daily buPROPion 2022-0 Yes [id number] 1{tbl} Take 1 Univers HCL, 7-25 tablet by ity of smoking 00:00: mouth in [facility] [place] [facility], 150 00 the Medical mg Tb12 morning. Branch Then in 3 days take one tablet by mouth twice a day, if the dose is too high just take once daily buPROPion 2022-0 Yes [id number] 1{tbl} Take 1 Univers HCL, 7-25 tablet by ity of smoking 00:00: mouth in [facility] [place] [facility], 150 00 the Medical mg Tb12 morning. Branch Then in 3 days take one tablet by mouth twice a day, if the dose is too high just take once daily buPROPion 2022-0 2022- No [id number] 1{tbl} Take 1 Univers HCL, 7-25 08-06 tablet by ity of smoking 00:00: 00:00 mouth in [place] deter, 150 00 :00 the Medical mg Tb12 morning. Branch Then in 3 days take one tablet by mouth twice a day, if the dose is too high just take once daily varenicline 2022-0 Yes [id number] Take one Univers (CHANTIX 7-13 0.5mg tab ity of STARTING 00:00: by mouth [facility]) 00 once daily Med ical 0.5 mg for 3 Branch (11)- 1 mg days, then (42) tablet one 0.5mg tab twice daily for 4 days, then one 1mg tab twice daily. albuterol 2022- Yes [id number] 2{puff} Inhale 2 Univers 90 7-13 Puffs ity of mcg/actuati 00:00: every 6 [place] on inhaler 00 (six) Medical hours as Branch needed for Wheezing or Shortness of Breath. varenicline 2022-0 Yes [id number] Take one Univers (CHANTIX 7-13 0.5mg tab ity of STARTING 00:00: by mouth [facility]) 00 once daily Med ical 0.5 mg for 3 Branch (11)- 1 mg days, then (42) tablet one 0.5mg tab twice daily for 4 days, then one 1mg tab twice daily. albuterol Yes [id number] 2{puff} Inhale 2 Univers 90 7-13 Puffs ity of mcg/actuati 00:00: every 6 [place] on inhaler 00 (six) Medical hours as Branch needed for Wheezing or Shortness of Breath. albuterol 2022-0 Yes [id number] 2{puff} Inhale 2 Univers 90 7-13 Puffs ity of mcg/actuati 00:00: every 6 [place] on inhaler 00 (six) Medical hours as Branch needed for Wheezing or Shortness of Breath. albuterol 2022-0 Yes [id number] 2{puff} Inhale 2 Univers 90 7-13 Puffs ity of mcg/actuati 00:00: every 6 [place] on inhaler 00 (six) Medical hours as Branch needed for Wheezing or Shortness of Breath. albuterol 2022-0 Yes [id number] 2{puff} Inhale 2 Univers 90 7-13 Puffs ity of mcg/actuati 00:00: every 6 [place] on inhaler 00 (six) Medical hours as Branch needed for Wheezing or Shortness of Breath. albuterol Yes [id number] 2{puff} Inhale 2 Univers 90 7-13 Puffs ity of mcg/actuati 00:00: every 6 [place] on inhaler 00 (six) Medical hours as Branch needed for Wheezing or Shortness of Breath. albuterol Yes [id number] 2{puff} Inhale 2 Univers 90 7-13 Puffs ity of mcg/actuati 00:00: every 6 [place] on inhaler 00 (six) Medical hours as Branch needed for Wheezing or Shortness of Breath. albuterol Yes [id number] 2{puff} Inhale 2 Univers 90 7-13 Puffs ity of mcg/actuati 00:00: every 6 [place] on inhaler 00 (six) Medical hours as Branch needed for Wheezing or Shortness of Breath. albuterol Yes [id number] 2{puff} Inhale 2 Univers 90 7-13 Puffs ity of mcg/actuati 00:00: every 6 [place] on inhaler 00 (six) Medical hours as Branch needed for Wheezing or Shortness of Breath. albuterol Yes [id number] 2{puff} Inhale 2 Univers 90 7-13 Puffs ity of mcg/actuati 00:00: every 6 [place] inhaler 00 (six) Medical hours as Branch needed for Wheezing or Shortness of Breath. albuterol Yes [id number] 2{puff} Inhale 2 Univers 90 7-13 Puffs ity of mcg/actuati 00:00: every 6 [place] inhaler 00 (six) Medical hours as Branch needed for Wheezing or Shortness of Breath. albuterol Yes [id number] 2{puff} Inhale 2 Univers 90 7-13 Puffs ity of mcg/actuati 00:00: every 6 [place] on inhaler 00 (six) Medical hours as Branch needed for Wheezing or Shortness of Breath. albuterol Yes [id number] 2{puff} Inhale 2 Univers 90 7-13 Puffs ity of mcg/actuati 00:00: every 6 [place] on inhaler 00 (six) Medical hours as Branch needed for Wheezing or Shortness of Breath. albuterol Yes [id number] 2{puff} Inhale 2 Univers 90 7-13 Puffs ity of mcg/actuati 00:00: every 6 [place] on inhaler 00 (six) Medical hours as Branch needed for Wheezing or Shortness of Breath. albuterol 2022- No [id number] 2{puff} Inhale 2 Univers 90 7-13 08-17 Puffs ity of mcg/actuati 00:00: 00:00 every 6 [place] on inhaler 00 :00 (six) Medical hours as Branch needed for Wheezing or Shortness of Breath. albuterol 2022- No [id number] 2{puff} Inhale 2 Univers 90 7-13 08-17 Puffs ity of mcg/actuati 00:00: 00:00 every 6 [place] on inhaler 00 :00 (six) Medical hours as Branch needed for Wheezing or Shortness of Breath. varenicline 2022- No [id number] Take one Univers (CHANTIX 7-13 07-25 0.5mg tab ity o f STARTING 00:00: 00:00 by [place] MONTH BOX) 00 :00 once daily Med ical 0.5 mg for 3 Branch (11)- 1 mg days, then (42) tablet one 0.5mg tab twice daily for 4 days, then one 1mg tab twice daily. CREON Yes [id number] TAKE ONE Uni vers 12,000-38,0 7-12 CAPSULE BY it y of 00:00: MOUTH [place] unit 00 EVERY Medical capsule MORNING , Branch ONE CAPSULE AT NOON AND 1 CAPSULE IN THE EVENING WITH MEALS CREON Yes [id number] TAKE ONE Uni vers 12,000-38,0 7-12 CAPSULE BY it y of 00:00: MOUTH [place] unit 00 EVERY Medical capsule MORNING , Branch ONE CAPSULE AT NOON AND 1 CAPSULE IN THE EVENING WITH MEALS CREON Yes [id number] TAKE ONE Uni vers 12,000-38,0 7-12 CAPSULE BY it y of 00:00: MOUTH [place] unit 00 EVERY Medical capsule MORNING , Branch ONE CAPSULE AT NOON AND 1 CAPSULE IN THE EVENING WITH MEALS CREON Yes [id number] TAKE ONE Uni vers 12,000-38,0 7-12 CAPSULE BY it y of 00:00: MOUTH [place] unit 00 EVERY Medical capsule MORNING , Branch ONE CAPSULE AT NOON AND 1 CAPSULE IN THE EVENING WITH MEALS CREON Yes [id number] TAKE ONE Uni vers 12,000-38,0 7-12 CAPSULE BY it y of 00:00: MOUTH [place] unit 00 EVERY Medical capsule MORNING , Branch ONE CAPSULE AT NOON AND 1 CAPSULE IN THE EVENING WITH MEALS CREON Yes [id number] TAKE ONE Uni vers 12,000-38,0 7-12 CAPSULE BY it y of 00:00: MOUTH [place] unit 00 EVERY Medical capsule MORNING , Branch ONE CAPSULE AT NOON AND 1 CAPSULE IN THE EVENING WITH MEALS CREON Yes [id number] TAKE ONE Uni vers 12,000-38,0 7-12 CAPSULE BY it y of 00:00: MOUTH [place] unit 00 EVERY Medical capsule MORNING , Branch ONE CAPSULE AT NOON AND 1 CAPSULE IN THE EVENING WITH MEALS CREON Yes [id number] TAKE ONE Uni vers 12,000-38,0 7-12 CAPSULE BY it y of 00:00: MOUTH [place] unit 00 EVERY Medical capsule MORNING , Branch ONE CAPSULE AT NOON AND 1 CAPSULE IN THE EVENING WITH MEALS CREON 0 Yes [id number] TAKE ONE Uni vers 12,000-38,0 7-12 CAPSULE BY it y of 00:00: MOUTH [place] unit 00 EVERY Medical capsule MORNING , Branch ONE CAPSULE AT NOON AND 1 CAPSULE IN THE EVENING WITH MEALS CREON 0 Yes [id number] TAKE ONE Uni vers 12,000-38,0 7-12 CAPSULE BY it y of 00:00: MOUTH [place] unit 00 EVERY Medical capsule MORNING , Branch ONE CAPSULE AT NOON AND 1 CAPSULE IN THE EVENING WITH MEALS CREON 2022-0 Yes [id number] TAKE ONE Uni vers 12,000-38,0 7-12 CAPSULE BY it y of 00:00: MOUTH [place] unit 00 EVERY Medical capsule MORNING , Branch ONE CAPSULE AT NOON AND 1 CAPSULE IN THE EVENING WITH MEALS CREON 0 Yes [id number] TAKE ONE Uni vers 12,000-38,0 7-12 CAPSULE BY it y of 00:00: MOUTH [place] unit 00 EVERY Medical capsule MORNING , Branch ONE CAPSULE AT NOON AND 1 CAPSULE IN THE EVENING WITH MEALS CREON 0 Yes [id number] TAKE ONE Uni vers 12,000-38,0 7-12 CAPSULE BY it y of 00:00: MOUTH [place] unit 00 EVERY Medical capsule MORNING , Branch ONE CAPSULE AT NOON AND 1 CAPSULE IN THE EVENING WITH MEALS CREON 0 Yes [id number] TAKE ONE [facility] vers 12,000-38,0 7-12 CAPSULE BY it y of 00:00: MOUTH [place] [facility] 00 EVERY Medical capsule MORNING , Branch ONE CAPSULE AT NOON AND 1 CAPSULE IN THE EVENING WITH MEALS CREON 0 Yes [id number] TAKE ONE [facility] vers 12,000-38,0 7-12 CAPSULE BY it y of 00:00: MOUTH [place] [facility] 00 EVERY Medical capsule MORNING , Branch ONE CAPSULE AT NOON AND 1 CAPSULE IN THE EVENING WITH MEALS CREON 0 Yes [id number] TAKE ONE [facility] vers 12,000-38,0 7-12 CAPSULE BY it y of 00:00: MOUTH [place] [facility] 00 EVERY Medical capsule MORNING , Branch ONE CAPSULE AT NOON AND 1 CAPSULE IN THE EVENING WITH MEALS CREON 0 Yes [id number] TAKE ONE [facility] vers 12,000-38,0 7-12 CAPSULE BY it y of 00:00: MOUTH [place] [facility] 00 EVERY Medical capsule MORNING , Branch ONE CAPSULE AT NOON AND 1 CAPSULE IN THE EVENING WITH MEALS CREON 0 Yes [id number] TAKE ONE [facility] vers 12,000-38,0 7-12 CAPSULE BY it y of 00:00: MOUTH [place] [facility] 00 EVERY Medical capsule MORNING , Branch ONE CAPSULE AT NOON AND 1 CAPSULE IN THE EVENING WITH MEALS CREON 2022-0 Yes [id number] TAKE ONE [facility] vers 12,000-38,0 7-12 CAPSULE BY it y of 00:00: MOUTH [place] [facility] 00 EVERY Medical capsule MORNING , Branch ONE CAPSULE AT NOON AND 1 CAPSULE IN THE EVENING WITH MEALS CREON Yes [id number] TAKE ONE [facility] vers 12,000-38,0 7-12 CAPSULE BY it y of 00:00: MOUTH [place] [facility] 00 EVERY Medical capsule MORNING , Branch ONE CAPSULE AT NOON AND 1 CAPSULE IN THE EVENING WITH MEALS CREON Yes [id number] TAKE ONE [facility] vers 12,000-38,0 7-12 CAPSULE BY it y of 00:00: MOUTH [place] [facility] 00 EVERY Medical capsule MORNING , Branch ONE CAPSULE AT NOON AND 1 CAPSULE IN THE EVENING WITH MEALS CREON Yes [id number] TAKE ONE [facility] vers 12,000-38,0 7-12 CAPSULE BY it y of 00:00: MOUTH [place] [facility] 00 EVERY Medical capsule MORNING , Branch ONE CAPSULE AT NOON AND 1 CAPSULE IN THE EVENING WITH MEALS CREON Yes [id number] TAKE ONE [facility] vers 12,000-38,0 7-12 CAPSULE BY it y of 00:00: MOUTH [place] [facility] 00 EVERY Medical capsule MORNING , Branch ONE CAPSULE AT NOON AND 1 CAPSULE IN THE EVENING WITH MEALS CREON Yes [id number] TAKE ONE [facility] vers 12,000-38,0 7-12 CAPSULE BY it y of 00:00: MOUTH [place] [facility] 00 EVERY Medical capsule MORNING , Branch ONE CAPSULE AT NOON AND 1 CAPSULE IN THE EVENING WITH MEALS CREON Yes [id number] TAKE ONE [facility] vers 12,000-38,0 7-12 CAPSULE BY it y of 00:00: MOUTH [place] [facility] 00 EVERY Medical capsule MORNING , Branch ONE CAPSULE AT NOON AND 1 CAPSULE IN THE EVENING WITH MEALS CREON Yes [id number] TAKE ONE [facility] vers 12,000-38,0 7-12 CAPSULE BY it y of 00:00: MOUTH [place] [facility] 00 EVERY Medical capsule MORNING , Branch ONE CAPSULE AT NOON AND 1 CAPSULE IN THE EVENING WITH MEALS CREON 0 Yes [id number] TAKE ONE [facility] vers 12,000-38,0 7-12 CAPSULE BY it y of 00:00: MOUTH [place] [facility] 00 EVERY Medical capsule MORNING , Branch ONE CAPSULE AT NOON AND 1 CAPSULE IN THE EVENING WITH MEALS CREON 2022- Yes [id number] TAKE ONE [facility] vers 12,000-38,0 7-12 CAPSULE BY it y of 00:00: MOUTH [place] [facility] 00 EVERY Medical capsule MORNING , Branch ONE CAPSULE AT NOON AND 1 CAPSULE IN THE EVENING WITH MEALS CREON 2022-0 Yes [id number] TAKE ONE [facility] vers 12,000-38,0 7-12 CAPSULE BY it y of 00:00: MOUTH [place] [facility] 00 EVERY Medical capsule MORNING , Branch ONE CAPSULE AT NOON AND 1 CAPSULE IN THE EVENING WITH MEALS CREON 2022- Yes [id number] TAKE ONE [facility] vers 12,000-38,0 7-12 CAPSULE BY it y of 00:00: MOUTH [place] [facility] 00 EVERY Medical capsule MORNING , Branch ONE CAPSULE AT NOON AND 1 CAPSULE IN THE EVENING WITH MEALS CREON 2022- Yes [id number] TAKE ONE [facility] vers 12,000-38,0 7-12 CAPSULE BY it y of 00:00: MOUTH [place] [facility] 00 EVERY Medical capsule MORNING , Branch ONE CAPSULE AT NOON AND 1 CAPSULE IN THE EVENING WITH MEALS GABAPENTIN 2022-0 Yes [id number] TAKE ONE [facility] 800 mg 7-06 [id number] TABLET BY ity of tablet 00:00: MOUTH [place] 00 EVERY Medical MORNING , Branch ONE TABLET AT NOON AND 1 TABLET IN THE EVENING GABAPENTIN 2023-0 Yes [id number] TAKE ONE [facility] 800 mg 7-06 [id number] TABLET BY it[facility] of tablet 00:00: MOUTH [place] 00 EVERY Medical MORNING , Branch ONE TABLET AT NOON AND 1 TABLET IN THE EVENING GABAPENTIN 2023-0 Yes [id number] TAKE ONE [facility] 800 mg 7-06 [id number] TABLET BY [facility] of tablet 00:00: MOUTH [place] 00 EVERY Medical MORNING , Branch ONE TABLET AT NOON AND 1 TABLET IN THE EVENING GABAPENTIN 2023-0 Yes [id number] TAKE ONE [facility] 800 mg 7-06 [id number] TABLET BY [facility] of tablet 00:00: MOUTH [place] 00 EVERY Medical MORNING , Branch ONE TABLET AT NOON AND 1 TABLET IN THE EVENING GABAPENTIN 2023-0 Yes [id number] TAKE ONE [facility] 800 mg 7-06 [id number] TABLET BY [facility] of tablet 00:00: MOUTH [place] 00 EVERY Medical MORNING , Branch ONE TABLET AT NOON AND 1 TABLET IN THE EVENING GABAPENTIN 2023-0 Yes [id number] TAKE ONE [facility] 800 mg 7-06 [id number] TABLET BY [facility] of tablet 00:00: MOUTH [place] 00 EVERY Medical MORNING , Branch ONE TABLET AT NOON AND 1 TABLET IN THE EVENING GABAPENTIN 2023-0 Yes [id number] TAKE ONE [facility] 800 mg 7-06 [id number] TABLET BY it[facility] of tablet 00:00: MOUTH [place] 00 EVERY Medical MORNING , Branch ONE TABLET AT NOON AND 1 TABLET IN THE EVENING GABAPENTIN 2023-0 Yes [id number] TAKE ONE [facility] 800 mg 7-06 [id number] TABLET BY it[facility] of tablet 00:00: MOUTH [place] 00 EVERY Medical MORNING , Branch ONE TABLET AT NOON AND 1 TABLET IN THE EVENING GABAPENTIN 2023-0 Yes [id number] TAKE ONE [facility] 800 mg 7-06 [id number] TABLET BY it[facility] of tablet 00:00: MOUTH [place] 00 EVERY Medical MORNING , Branch ONE TABLET AT NOON AND 1 TABLET IN THE EVENING GABAPENTIN 2023-0 Yes [id number] TAKE ONE [facility] 800 mg 7-06 [id number] TABLET BY [facility] of tablet 00:00: MOUTH [place] 00 EVERY Medical MORNING , Branch ONE TABLET AT NOON AND 1 TABLET IN THE EVENING GABAPENTIN 2023-0 Yes [id number] TAKE ONE [facility] 800 mg 7-06 [id number] TABLET BY [facility] of tablet 00:00: MOUTH [place] 00 EVERY Medical MORNING , Branch ONE TABLET AT NOON AND 1 TABLET IN THE EVENING GABAPENTIN 2023-0 Yes [id number] TAKE ONE [facility] 800 mg 7-06 [id number] TABLET BY [facility] of tablet 00:00: MOUTH [place] 00 EVERY Medical MORNING , Branch ONE TABLET AT NOON AND 1 TABLET IN THE EVENING GABAPENTIN 2023-0 Yes [id number] TAKE ONE [facility] 800 mg 7-06 [id number] TABLET BY [facility] of tablet 00:00: MOUTH [place] 00 EVERY Medical MORNING , Branch ONE TABLET AT NOON AND 1 TABLET IN THE EVENING GABAPENTIN 2023-0 Yes [id number] TAKE ONE [facility] 800 mg 7-06 [id number] TABLET BY [facility] of tablet 00:00: MOUTH [place] 00 EVERY Medical MORNING , Branch ONE TABLET AT NOON AND 1 TABLET IN THE EVENING GABAPENTIN 2023-0 Yes [id number] TAKE ONE [facility] 800 mg 7-06 [id number] TABLET BY [facility] of tablet 00:00: MOUTH [place] 00 EVERY Medical MORNING , Branch ONE TABLET AT NOON AND 1 TABLET IN THE EVENING GABAPENTIN 2023-0 Yes [id number] TAKE ONE [facility] 800 mg 7-06 [id number] TABLET BY [facility] of tablet 00:00: MOUTH [place] 00 EVERY Medical MORNING , Branch ONE TABLET AT NOON AND 1 TABLET IN THE EVENING GABAPENTIN 2023-0 Yes [id number] TAKE ONE [facility] 800 mg 7-06 [id number] TABLET BY [facility] of tablet 00:00: MOUTH [place] 00 EVERY Medical MORNING , Branch ONE TABLET AT NOON AND 1 TABLET IN THE EVENING GABAPENTIN 2023-0 Yes [id number] TAKE ONE [facility] 800 mg 7-06 [id number] TABLET BY [facility] of tablet 00:00: MOUTH [place] 00 EVERY Medical MORNING , Branch ONE TABLET AT NOON AND 1 TABLET IN THE EVENING GABAPENTIN 2023-0 Yes [id number] TAKE ONE [facility] 800 mg 7-06 [id number] TABLET BY [facility] of tablet 00:00: MOUTH [place] 00 EVERY Medical MORNING , Branch ONE TABLET AT NOON AND 1 TABLET IN THE EVENING GABAPENTIN 2023-0 Yes [id number] TAKE ONE [facility] 800 mg 7-06 [id number] TABLET BY [facility] of tablet 00:00: MOUTH [place] 00 EVERY Medical MORNING , Branch ONE TABLET AT NOON AND 1 TABLET IN THE EVENING GABAPENTIN 2023-0 Yes [id number] TAKE ONE [facility] 800 mg 7-06 [id number] TABLET BY [facility] of tablet 00:00: MOUTH [place] 00 EVERY Medical MORNING , Branch ONE TABLET AT NOON AND 1 TABLET IN THE EVENING GABAPENTIN 2023-0 Yes [id number] TAKE ONE [facility] 800 mg 7-06 [id number] TABLET BY [facility] of tablet 00:00: MOUTH [place] 00 EVERY Medical MORNING , Branch ONE TABLET AT NOON AND 1 TABLET IN THE EVENING GABAPENTIN 2023-0 Yes [id number] TAKE ONE [facility] 800 mg 7-06 [id number] TABLET BY [facility] of tablet 00:00: MOUTH [place] 00 EVERY Medical MORNING , Branch ONE TABLET AT NOON AND 1 TABLET IN THE EVENING GABAPENTIN 2023-0 Yes [id number] TAKE ONE [facility] 800 mg 7-06 [id number] TABLET BY [facility] of tablet 00:00: MOUTH [place] 00 EVERY Medical MORNING , Branch ONE TABLET AT NOON AND 1 TABLET IN THE EVENING GABAPENTIN 2023-0 Yes [id number] TAKE ONE [facility] 800 mg 7-06 [id number] TABLET BY [facility] of tablet 00:00: MOUTH [place] 00 EVERY Medical MORNING , Branch ONE TABLET AT NOON AND 1 TABLET IN THE EVENING GABAPENTIN 2023-0 Yes [id number] TAKE ONE [facility] 800 mg 7-06 [id number] TABLET BY [facility] of tablet 00:00: MOUTH [place] 00 EVERY Medical MORNING , Branch ONE TABLET AT NOON AND 1 TABLET IN THE EVENING GABAPENTIN 2023-0 Yes [id number] TAKE ONE [facility] 800 mg 7-06 [id number] TABLET BY [facility] of tablet 00:00: MOUTH [place] 00 EVERY Medical MORNING , Branch ONE TABLET AT NOON AND 1 TABLET IN THE EVENING GABAPENTIN 2023-0 Yes [id number] TAKE ONE [facility] 800 mg 7-06 [id number] TABLET BY [facility] of tablet 00:00: MOUTH [place] 00 EVERY Medical MORNING , Branch ONE TABLET AT NOON AND 1 TABLET IN THE EVENING GABAPENTIN 2023-0 Yes [id number] TAKE ONE [facility] 800 mg 7-06 [id number] TABLET BY [facility] of tablet 00:00: MOUTH [place] 00 EVERY Medical MORNING , Branch ONE TABLET AT NOON AND 1 TABLET IN THE EVENING GABAPENTIN 2023-0 Yes [id number] TAKE ONE [facility] 800 mg 7-06 [id number] TABLET BY [facility] of tablet 00:00: MOUTH [place] 00 EVERY Medical MORNING , Branch ONE TABLET AT NOON AND 1 TABLET IN THE EVENING GABAPENTIN 2023-0 Yes [id number] TAKE ONE [facility] 800 mg 7-06 [id number] TABLET BY [facility] of tablet 00:00: MOUTH [place] 00 EVERY Medical MORNING , Branch ONE TABLET AT NOON AND 1 TABLET IN THE EVENING ferrous 2023-0 2023- No 300mg Take 300 [facility] ers sulfate 300 6-30 06-30 mg by [facility] mg (60 mg 14:41: 00:00 [facility] [place] iron)/5 mL 15 :00 (two) Medical solution times Branch daily. ferrous 2023-0 3- No 300mg Take 300 [facility] ers sulfate 300 6-30 06-30 mg by [facility] of mg (60 mg 14:41: 00:00 [facility] [place] iron)/5 mL 15 :00 (two) Medical solution times Branch daily. omeprazole 3-0 Yes [id number] Take one [facility] 40 mg 6-30 capsule by [facility] of capsule 00:00: mouth [place] 00 twice Medical daily for Branch one week then one capsule by mouth daily omeprazole 3-0 Yes [id number] Take one [facility] 40 mg 6-30 capsule by [facility] of capsule 00:00: mouth [place] 00 twice Medical daily for Branch one week then one capsule by mouth daily omeprazole 3-0 Yes [id number] Take one [facility] 40 mg 6-30 capsule by [facility]y of capsule 00:00: mouth [place] 00 twice Medical daily for Branch one week then one capsule by mouth daily omeprazole 2023-0 Yes [id number] Take one [facility] 40 mg 6-30 capsule by [facility] of capsule 00:00: mouth [place] 00 twice Medical daily for Branch one week then one capsule by mouth daily omeprazole 2023-0 Yes [id number] Take one [facility] 40 mg 6-30 capsule by [facility]y of capsule 00:00: mouth [place] 00 twice Medical daily for Branch one week then one capsule by mouth daily omeprazole 2023-0 Yes [id number] Take one [facility] 40 mg 6-30 capsule by [facility] of capsule 00:00: mouth [place] 00 twice Medical daily for Branch one week then one capsule by mouth daily omeprazole 2023-0 Yes [id number] Take one [facility] 40 mg 6-30 capsule by [facility] of capsule 00:00: mouth [place] 00 twice Medical daily for Branch one week then one capsule by mouth daily omeprazole 2023-0 Yes [id number] Take one [facility] 40 mg 6-30 capsule by [facility] of capsule 00:00: mouth [place] 00 twice Medical daily for Branch one week then one capsule by mouth daily omeprazole 2023-0 Yes [id number] Take one [facility] 40 mg 6-30 capsule by [facility] of capsule 00:00: mouth [place] 00 twice Medical daily for Branch one week then one capsule by mouth daily omeprazole 2023-0 Yes [id number] Take one [facility] 40 mg 6-30 capsule by [facility]y of capsule 00:00: mouth [place] 00 twice Medical daily for Branch one week then one capsule by mouth daily omeprazole 2023-0 Yes [id number] Take one [facility] 40 mg 6-30 capsule by [facility]y of capsule 00:00: mouth [place] 00 twice Medical daily for Branch one week then one capsule by mouth daily omeprazole 2023-0 Yes [id number] Take one [facility] 40 mg 6-30 capsule by [facility]y of capsule 00:00: mouth [place] 00 twice Medical daily for Branch one week then one capsule by mouth daily omeprazole 2023-0 Yes [id number] Take one [facility] 40 mg 6-30 capsule by ity of capsule 00:00: mouth [place] 00 twice Medical daily for Branch one week then one capsule by mouth daily omeprazole 2023-0 Yes [id number] Take one [facility] 40 mg 6-30 capsule by [facility] of capsule 00:00: mouth [place] 00 twice Medical daily for Branch one week then one capsule by mouth daily omeprazole 2023-0 Yes [id number] Take one [facility] 40 mg 6-30 capsule by [facility]y of capsule 00:00: mouth [place] 00 twice Medical daily for Branch one week then one capsule by mouth daily omeprazole 2023-0 Yes [id number] Take one [facility] 40 mg 6-30 capsule by ity of capsule 00:00: mouth [place] 00 twice Medical daily for Branch one week then one capsule by mouth daily omeprazole 2023-0 Yes [id number] Take one [facility] 40 mg 6-30 capsule by [facility]y of capsule 00:00: mouth [place] 00 twice Medical daily for Branch one week then one capsule by mouth daily omeprazole 2023-0 Yes [id number] Take one [facility] 40 mg 6-30 capsule by ity of capsule 00:00: mouth [place] 00 twice Medical daily for Branch one week then one capsule by mouth daily omeprazole 2023-0 Yes [id number] Take one [facility] 40 mg 6-30 capsule by [facility]y of capsule 00:00: mouth [place] 00 twice Medical daily for Branch one week then one capsule by mouth daily omeprazole 2023-0 Yes [id number] Take one [facility] 40 mg 6-30 capsule by ity of capsule 00:00: mouth [place] 00 twice Medical daily for Branch one week then one capsule by mouth daily omeprazole 2023-0 Yes [id number] Take one [facility] 40 mg 6-30 capsule by [facility]y of capsule 00:00: mouth [place] 00 twice Medical daily for Branch one week then one capsule by mouth daily omeprazole 2023-0 Yes [id number] Take one [facility] 40 mg 6-30 capsule by ity of capsule 00:00: mouth [place] 00 twice Medical daily for Branch one week then one capsule by mouth daily omeprazole 2023-0 Yes [id number] Take one [facility] 40 mg 6-30 capsule by [facility]y of capsule 00:00: mouth [place] 00 twice Medical daily for Branch one week then one capsule by mouth daily omeprazole 2023-0 Yes [id number] Take one [facility] 40 mg 6-30 capsule by ity of capsule 00:00: mouth [place] 00 twice Medical daily for Branch one week then one capsule by mouth daily omeprazole 2023-0 Yes [id number] Take one [facility] 40 mg 6-30 capsule by ity of capsule 00:00: mouth [place] 00 twice Medical daily for Branch one week then one capsule by mouth daily omeprazole 2023-0 Yes [id number] Take one [facility] 40 mg 6-30 capsule by ity of capsule 00:00: mouth [place] 00 twice Medical daily for Branch one week then one capsule by mouth daily omeprazole 2023-0 Yes [id number] Take one [facility] 40 mg 6-30 capsule by ity of capsule 00:00: mouth [place] 00 twice Medical daily for Branch one week then one capsule by mouth daily omeprazole 2023-0 Yes [id number] Take one [facility] 40 mg 6-30 capsule by [facility]y of capsule 00:00: mouth [place] 00 twice Medical daily for Branch one week then one capsule by mouth daily omeprazole 2023-0 Yes [id number] Take one [facility] 40 mg 6-30 capsule by [facility]y of capsule 00:00: mouth [place] 00 twice Medical daily for Branch one week then one capsule by mouth daily omeprazole 2023-0 Yes [id number] Take one [facility] 40 mg 6-30 capsule by [facility]y of capsule 00:00: mouth [place] 00 twice Medical daily for Branch one week then one capsule by mouth daily omeprazole 2023-0 Yes [id number] Take one [facility] 40 mg 6-30 capsule by ity of capsule 00:00: mouth [place] 00 twice Medical daily for Branch one week then one capsule by mouth daily omeprazole 2023-0 Yes [id number] Take one [facility] 40 mg 6-30 capsule by ity of capsule 00:00: mouth [place] 00 twice Medical daily for Branch one week then one capsule by mouth daily omeprazole 2023-0 Yes [id number] Take one [facility] 40 mg 6-30 capsule by ity of capsule 00:00: mouth [place] 00 twice Medical daily for Branch one week then one capsule by mouth daily omeprazole 2023-0 Yes [id number] Take one [facility] 40 mg 6-30 capsule by [facility]y of capsule 00:00: mouth [place] 00 twice Medical daily for Branch one week then one capsule by mouth daily levothyroxi 2022-0 Yes [id number] 150ug Take 1 [facility] ne 150 mcg 5-31 tablet by [facility]y of tablet 00:00: mouth [place] 00 every Medical morning. Branch levothyroxi 3-0 Yes [id number] 150ug Take 1 [facility] ne 150 mcg 5-31 tablet by [facility]y of tablet 00:00: mouth [place] 00 every Medical morning. Branch levothyroxi 3-0 Yes [id number] 150ug Take 1 [facility] ne 150 mcg 5-31 tablet by ity of tablet 00:00: mouth [place] 00 every Medical morning. Branch levothyroxi 3-0 Yes [id number] 150ug Take 1 [facility] ne 150 mcg 5-31 tablet by ity of tablet 00:00: mouth [place] 00 every Medical morning. Branch levothyroxi 3-0 Yes [id number] 150ug Take 1 [facility] ne 150 mcg 5-31 tablet by ity of tablet 00:00: mouth [place] 00 every Medical morning. Branch levothyroxi 3-0 Yes [id number] 150ug Take 1 [facility] ne 150 mcg 5-31 tablet by ity of tablet 00:00: mouth [place] 00 every Medical morning. Branch levothyroxi 3-0 Yes [id number] 150ug Take 1 [facility] ne 150 mcg 5-31 tablet by ity of tablet 00:00: mouth [place] 00 every Medical morning. Branch levothyroxi 3-0 Yes [id number] 150ug Take 1 [facility] ne 150 mcg 5-31 tablet by ity of tablet 00:00: mouth [place] 00 every Medical morning. Branch levothyroxi 3-0 Yes [id number] 150ug Take 1 [facility] ne 150 mcg 5-31 tablet by ity of tablet 00:00: mouth [place] 00 every Medical morning. Branch levothyroxi 3-0 Yes [id number] 150ug Take 1 [facility] ne 150 mcg 5-31 tablet by ity of tablet 00:00: mouth [place] 00 every Medical morning. Branch levothyroxi 3-0 Yes [id number] 150ug Take 1 [facility] ne 150 mcg 5-31 tablet by ity of tablet 00:00: mouth [place] 00 every Medical morning. Branch levothyroxi 3-0 Yes [id number] 150ug Take 1 [facility] ne 150 mcg 5-31 tablet by ity of tablet 00:00: mouth [place] 00 every Medical morning. Branch levothyroxi 3-0 Yes [id number] 150ug Take 1 [facility] ne 150 mcg 5-31 tablet by ity of tablet 00:00: mouth [place] 00 every Medical morning. Branch levothyroxi 3-0 Yes [id number] 150ug Take 1 [facility] ne 150 mcg 5-31 tablet by ity of tablet 00:00: mouth [place] 00 every Medical morning. Branch levothyroxi 2022-0 Yes [id number] 150ug Take 1 [facility] ne 150 mcg 5-31 tablet by ity of tablet 00:00: mouth [place] 00 every Medical morning. Branch levothyroxi 2022-0 Yes [id number] 150ug Take 1 [facility] ne 150 mcg 5-31 tablet by ity of tablet 00:00: mouth [place] 00 every Medical morning. Branch levothyroxi 2022-0 Yes [id number] 150ug Take 1 [facility] ne 150 mcg 5-31 tablet by ity of tablet 00:00: mouth [place] 00 every Medical morning. Branch levothyroxi 2022-0 Yes [id number] 150ug Take 1 [facility] ne 150 mcg 5-31 tablet by ity of tablet 00:00: mouth [place] 00 every Medical morning. Branch levothyroxi 2022-0 Yes [id number] 150ug Take 1 [facility] ne 150 mcg 5-31 tablet by ity of tablet 00:00: mouth [place] 00 every Medical morning. Branch levothyroxi 2022-0 Yes [id number] 150ug Take 1 [facility] ne 150 mcg 5-31 tablet by ity of tablet 00:00: mouth [place] 00 every Medical morning. Branch levothyroxi 2022-0 Yes [id number] 150ug Take 1 [facility] ne 150 mcg 5-31 tablet by ity of tablet 00:00: mouth [place] 00 every Medical morning. Branch levothyroxi 2022-0 Yes [id number] 150ug Take 1 [facility] ne 150 mcg 5-31 tablet by ity of tablet 00:00: mouth [place] 00 every Medical morning. Branch levothyroxi 2022-0 Yes [id number] 150ug Take 1 [facility] ne 150 mcg 5-31 tablet by ity of tablet 00:00: mouth [place] 00 every Medical morning. Branch levothyroxi 3-0 Yes [id number] 150ug Take 1 [facility] ne 150 mcg 5-31 tablet by ity of tablet 00:00: mouth [place] 00 every Medical morning. Branch levothyroxi 3-0 Yes [id number] 150ug Take 1 [facility] ne 150 mcg 5-31 tablet by ity of tablet 00:00: mouth [place] 00 every Medical morning. Branch levothyroxi 3-0 Yes [id number] 150ug Take 1 [facility] ne 150 mcg 5-31 tablet by ity of tablet 00:00: mouth [place] 00 every Medical morning. Branch levothyroxi 3-0 Yes [id number] 150ug Take 1 [facility] ne 150 mcg 5-31 tablet by ity of tablet 00:00: mouth [place] 00 every Medical morning. Branch levothyroxi 2022-0 Yes [id number] 150ug Take 1 [facility] ne 150 mcg 5-31 tablet by ity of tablet 00:00: mouth [place] 00 every Medical morning. Branch levothyroxi 3-0 Yes [id number] 150ug Take 1 [facility] ne 150 mcg 5-31 tablet by ity of tablet 00:00: mouth [place] 00 every Medical morning. Branch levothyroxi 3-0 Yes [id number] 150ug Take 1 [facility] ne 150 mcg 5-31 tablet by ity of tablet 00:00: mouth [place] 00 every Medical morning. Branch levothyroxi 3-0 Yes [id number] 150ug Take 1 [facility] ne 150 mcg 5-31 tablet by ity of tablet 00:00: mouth [place] 00 every Medical morning. Branch levothyroxi 2022-0 Yes [id number] 150ug Take 1 [facility] ne 150 mcg 5-31 tablet by ity of tablet 00:00: mouth [place] 00 every Medical morning. Branch levothyroxi 2022-0 Yes [id number] 150ug Take 1 [facility] ne 150 mcg 5-31 tablet by ity of tablet 00:00: mouth [place] 00 every Medical morning. Branch levothyroxi 2022-0 Yes [id number] 150ug Take 1 [facility] ne 150 mcg 5-31 tablet by ity of tablet 00:00: mouth [place] 00 every Medical morning. Branch levothyroxi 3-0 Yes [id number] 150ug Take 1 [facility] ne 150 mcg 5-31 tablet by ity of tablet 00:00: mouth [place] 00 every Medical morning. Branch levothyroxi 3-0 Yes [id number] 150ug Take 1 [facility] ne 150 mcg 5-31 tablet by ity of tablet 00:00: mouth [place] 00 every Medical morning. Branch levothyroxi 3-0 Yes [id number] 150ug Take 1 [facility] ne 150 mcg 5-31 tablet by ity of tablet 00:00: mouth [place] 00 every Medical morning. Branch levothyroxi 3-0 Yes [id number] 150ug Take 1 [facility] ne 150 mcg 5-31 tablet by ity of tablet 00:00: mouth [place] 00 every Medical morning. Branch levothyroxi 3-0 Yes [id number] 150ug Take 1 [facility] ne 150 mcg 5-31 tablet by ity of tablet 00:00: mouth [place] 00 every Medical morning. Branch levothyroxi 2023-0 Yes [id number] 150ug Take 1 [facility] ne 150 mcg 5-31 tablet by ity of tablet 00:00: mouth [place] 00 every Medical morning. Branch GABAPENTIN 2023-0 Yes [id number] TAKE ONE [facility] 800 mg 5-03 [id number] TABLET BY ity of tablet 00:00: MOUTH [place] 00 EVERY Medical MORNING , Branch ONE TABLET AT NOON AND 1 TABLET IN THE EVENING GABAPENTIN 2023-0 Yes [id number] TAKE ONE [facility] 800 mg 5-03 [id number] TABLET BY ity of tablet 00:00: MOUTH [place] 00 EVERY Medical MORNING , Branch ONE TABLET AT NOON AND 1 TABLET IN THE EVENING GABAPENTIN 2023-0 Yes [id number] TAKE ONE [facility] 800 mg 5-03 [id number] TABLET BY ity of tablet 00:00: MOUTH [place] 00 EVERY Medical MORNING , Branch ONE TABLET AT NOON AND 1 TABLET IN THE EVENING GABAPENTIN 2023-0 Yes [id number] TAKE ONE [facility] 800 mg 5-03 [id number] TABLET BY ity of tablet 00:00: MOUTH [place] 00 EVERY Medical MORNING , Branch ONE TABLET AT NOON AND 1 TABLET IN THE EVENING GABAPENTIN 2023-0 Yes [id number] TAKE ONE [facility] 800 mg 5-03 [id number] TABLET BY it[facility] of tablet 00:00: MOUTH [place] 00 EVERY Medical MORNING , Branch ONE TABLET AT NOON AND 1 TABLET IN THE EVENING GABAPENTIN 2023-0 Yes [id number] TAKE ONE [facility] 800 mg 5-03 [id number] TABLET BY ity of tablet 00:00: MOUTH [place] 00 EVERY Medical MORNING , Branch ONE TABLET AT NOON AND 1 TABLET IN THE EVENING GABAPENTIN 2023-0 Yes [id number] TAKE ONE [facility] 800 mg 5-03 [id number] TABLET BY ity of tablet 00:00: MOUTH [place] 00 EVERY Medical MORNING , Branch ONE TABLET AT NOON AND 1 TABLET IN THE EVENING GABAPENTIN 2023-0 Yes [id number] TAKE ONE [facility] 800 mg 5-03 [id number] TABLET BY ity of tablet 00:00: MOUTH [place] 00 EVERY Medical MORNING , Branch ONE TABLET AT NOON AND 1 TABLET IN THE EVENING GABAPENTIN 2023-0 Yes [id number] TAKE ONE [facility] 800 mg 5-03 [id number] TABLET BY it[facility] of tablet 00:00: MOUTH [place] 00 EVERY Medical MORNING , Branch ONE TABLET AT NOON AND 1 TABLET IN THE EVENING GABAPENTIN 2022-0 Yes [id number] TAKE ONE [facility] 800 mg 5-03 [id number] TABLET BY ity of tablet 00:00: MOUTH [place] 00 EVERY Medical MORNING , Branch ONE TABLET AT NOON AND 1 TABLET IN THE EVENING GABAPENTIN 2022-0 Yes [id number] TAKE ONE [facility] 800 mg 5-03 [id number] TABLET BY it[facility] of tablet 00:00: MOUTH [place] 00 EVERY Medical MORNING , Branch ONE TABLET AT NOON AND 1 TABLET IN THE EVENING GABAPENTIN 2022-0 Yes [id number] TAKE ONE [facility] 800 mg 5-03 [id number] TABLET BY ity of tablet 00:00: MOUTH [place] 00 EVERY Medical MORNING , Branch ONE TABLET AT NOON AND 1 TABLET IN THE EVENING GABAPENTIN 2022-0 Yes [id number] TAKE ONE [facility] 800 mg 5-03 [id number] TABLET BY ity of tablet 00:00: MOUTH [place] 00 EVERY Medical MORNING , Branch ONE TABLET AT NOON AND 1 TABLET IN THE EVENING GABAPENTIN 2022-0 2022- No [id number] TAKE ONE [facility] 800 mg 5-03 -06 [id number] TABLET BY ity o f tablet 00:00: 00:00 MOUTH [place] 00 :00 EVERY Medical MORNING , Branch ONE TABLET AT NOON AND 1 TABLET IN THE EVENING levothyroxi 2021-04 Yes [id number] 150ug Take 1 [facility] ne 150 mcg 1-07 tablet by ity of tablet 00:00: mouth [place] 00 every Medical morning. Branch levothyroxi 2021-04 Yes [id number] 150ug Take 1 [facility] ne 150 mcg 1-07 tablet by ity of tablet 00:00: mouth [place] 00 every Medical morning. Branch levothyroxi 2021-04 Yes [id number] 150ug Take 1 [facility] ne 150 mcg 1-07 tablet by ity of tablet 00:00: mouth [place] 00 every Medical morning. Branch levothyroxi 2021-04 Yes [id number] 150ug Take 1 [facility] ne 150 mcg 1-07 tablet by ity of tablet 00:00: mouth [place] 00 every Medical morning. Branch levothyroxi 2021-04 Yes [id number] 150ug Take 1 [facility] ne 150 mcg 1-07 tablet by ity of tablet 00:00: mouth [place] 00 every Medical morning. Branch levothyroxi 2021-04- No [id number] 150ug Take 1 [facility] ne 150 mcg 1-07 05-31 tablet by ity of tablet 00:00: 00:00 mouth [place] 00 :00 every Medical morning. Branch levothyroxi 2021-04- No [id number] 150ug Take 1 [facility] ne 150 mcg 04-07- tablet by ity of tablet 00:00: 00:00 mouth [place] 00 :00 every Medical morning. Branch levothyroxi 2021-04- No [id number] 150ug Take 1 [facility] ne 150 mcg 04-07 tablet by ity of tablet 00:00: 00:00 mouth [place] 00 :00 every Medical morning. Branch levothyroxi 2021-04- No [id number] 150ug Take 1 [facility] ne 150 mcg 04-07 tablet by ity of tablet 00:00: 00:00 mouth [place] 00 :00 every Medical morning. Branch levothyroxi 2021-04- No [id number] 150ug Take 1 [facility] ne 150 mcg 04-07 tablet by ity of tablet 00:00: 00:00 mouth [place] 00 :00 every Medical morning. Branch levothyroxi 2021-04 Yes [id number] TAKE 1 [facility] ne 137 mcg 1-04 TABLET BY ity of tablet 00:00: MOUTH [place] 00 EVERY Medical OTHER DAY Branch levothyroxi 2021-04 Yes [id number] TAKE 1 [facility] ne 137 mcg 1-04 TABLET BY ity of tablet 00:00: MOUTH [place] 00 EVERY Medical OTHER DAY Branch levothyroxi 2021-04- No [id number] TAKE 1 [facility] ne 137 mcg 1-04 -07 TABLET BY ity of tablet 00:00: 00:00 MOUTH [place] 00 :00 EVERY Medical OTHER DAY Branch levothyroxi 2021-04- No [id number] TAKE 1 [facility] ne 137 mcg 1-04 11-07 TABLET BY ity of tablet 00:00: 00:00 MOUTH [place] 00 :00 EVERY Medical OTHER DAY Branch levothyroxi 2021-04 Yes [id number] TAKE 1 [facility] ne 137 mcg 0-11 TABLET BY ity of tablet 00:00: MOUTH [place] 00 EVERY Medical OTHER DAY Branch levothyroxi 2021-04 Yes [id number] TAKE 1 [facility] ne 137 mcg 0-11 TABLET BY ity of tablet 00:00: MOUTH [place] 00 EVERY Medical OTHER DAY Branch levothyroxi 2021-04- No [id number] TAKE 1 [facility] ne 137 mcg 0-02 09-04 TABLET BY ity of tablet 00:00: 00:00 MOUTH [place] 00 :00 EVERY Medical OTHER DAY Branch levothyroxi 2021-04- No [id number] TAKE 1 [facility] ne 137 mcg 0-11 -04 TABLET BY ity of tablet 00:00: 00:00 MOUTH [place] 00 :00 EVERY Medical OTHER DAY Branch albuterol 2021- No 2.5mg Inhale 2.5 [facility] 2.5 mg /3 8-29 08-29 mg every 4 ity of mL (0.083 11:45: 00:00 (four) [place] %) 37 :00 hours as Medical nebulizer needed for Bran ch solution Wheezing, Shortness of Breath or Bronchospa sm. ketoconazol Yes [id number] Apply to [facility] e 2 % 8-29 area(s) ity of shampoo 00:00: [place] 00 as needed Medical for Branch Itching. escitalopra Yes [id number] 20mg Take 1 [facility] m oxalate 8-29 tablet by ity o f 20 mg 00:00: mouth in [place] tablet 00 the Medical morning. Branch pantoprazol Yes [id number] 40mg Take 20 mL [facility] e 2 [...] the evening. Take with meals. ARIPiprazol Yes [id number] 5mg Take 1 [facility] e 5 mg 8-29 tablet by ity of tablet 00:00: mouth in [place] 00 the Medical morning. Branch albuterol Yes 2.5mg Inhale 3 [facility] vers 2.5 mg /3 8-29 mL every 4 ity of mL (0.083 00:00: (four) [place] %) 00 hours as Medical nebulizer needed for Bran ch solution Wheezing, Shortness of Breath or Bronchospa sm. gabapentin Yes [id number] 800mg Take 1 [facility] 800 mg 8-29 [id number] tablet by ity of tablet 00:00: mouth in [place] 00 the Medical morning Branch and 1 tablet at noon and 1 tablet in the evening. ketoconazol Yes [id number] Apply to [facility] e 2 % 8-29 area(s) ity of shampoo 00:00: [place] 00 as needed Medical for Branch Itching. escitalopra Yes [id number] 20mg Take 1 [facility] m oxalate 8-29 tablet by ity o f 20 mg 00:00: mouth in [place] tablet 00 the Medical morning. Branch pantoprazol Yes [id number] 40mg Take 20 mL [facility] e 2 mg/mL 8-29 by mouth ity of oral 00:00: in the [place] suspension 00 morning. Medic al Branch lipase-prot Yes 1{capsu Take 1 U nivers ease-amylas 8-29 le} capsule by it y of e (CREON) 00:00: mouth in [facility] s 12,000-38,0 00 the Medical 00 -60,000 morning Branch unit and 1 capsule capsule at noon and 1 capsule in the evening. Take with meals. ARIPiprazol Yes [id number] 5mg Take 1 [facility] e 5 mg 8-29 tablet by ity of tablet 00:00: mouth in [place] 00 the Medical morning. Branch albuterol Yes 2.5mg Inhale 3 Uni vers 2.5 mg /3 8-29 mL every 4 ity of mL (0.083 00:00: (four) [place] %) 00 hours as Medical nebulizer needed for Bran ch solution Wheezing, Shortness of Breath or Bronchospa sm. gabapentin Yes [id number] 800mg Take 1 [facility] 800 mg 8-29 [id number] tablet by ity of tablet 00:00: mouth in [place] 00 the Medical morning Branch and 1 tablet at noon and 1 tablet in the evening. ketoconazol Yes [id number] Apply to [facility] e 2 % 8-29 area(s) ity of shampoo 00:00: [place] 00 as needed Medical for Branch Itching. escitalopra Yes [id number] 20mg Take 1 [facility] m oxalate 8-29 tablet by ity o f 20 mg 00:00: mouth in [place] tablet 00 the Medical morning. Branch pantoprazol Yes [id number] 40mg Take 20 mL [facility] e 2 [...] the evening. Take with meals. ARIPiprazol Yes [id number] 5mg Take 1 [facility] e 5 mg 8-29 tablet by ity of tablet 00:00: mouth in [place] 00 the morning. Branch albuterol Yes 2.5mg Inhale 3 [facility] vers 2.5 mg /3 8-29 mL every 4 ity of mL (0.083 00:00: (four) [place] %) 00 hours as Medical nebulizer needed for Bran ch solution Wheezing, Shortness of Breath or Bronchospa sm. gabapentin Yes [id number] 800mg Take 1 [facility] 800 mg 8-29 [id number] tablet by ity of tablet 00:00: mouth in [place] 00 the Medical morning Branch and 1 tablet at noon and 1 tablet in the evening. ketoconazol Yes [id number] Apply to [facility] e 2 % 8-29 area(s) ity of shampoo 00:00: [place] 00 as needed Medical for Branch Itching. escitalopra Yes [id number] 20mg Take 1 [facility] m oxalate 8-29 tablet by ity o f 20 mg 00:00: mouth in [place] tablet 00 the Medical morning. Branch pantoprazol Yes [id number] 40mg Take 20 mL [facility] e 2 mg/mL 8-29 by mouth ity of oral 00:00: in the [place] suspension 00 morning. Medic al Branch lipase-prot Yes 1{capsu Take 1 U nivers ease-amylas 8-29 le} capsule by it y of e (CREON) 00:00: mouth in [facility] s -,0 00 the Medical morning Branch unit and 1 capsule capsule at noon and 1 capsule in the evening. Take with meals. ARIPiprazol Yes [id number] 5mg Take 1 [facility] e 5 mg 8-29 tablet by ity of tablet 00:00: mouth in [place] 00 the Medical morning. Branch albuterol Yes 2.5mg Inhale 3 Uni vers 2.5 mg /3 8-29 mL every 4 ity of mL (0.083 00:00: (four) [place] %) 00 hours as Medical nebulizer needed for Bran ch solution Wheezing, Shortness of Breath or Bronchospa sm. gabapentin Yes [id number] 800mg Take 1 [facility] 800 mg 8-29 [id number] tablet by ity of tablet 00:00: mouth in [place] 00 the Medical morning Branch and 1 tablet at noon and 1 tablet in the evening. ketoconazol Yes [id number] Apply to [facility] e 2 % 8-29 area(s) ity of shampoo 00:00: [place] 00 as needed Medical for Branch Itching. escitalopra Yes [id number] 20mg Take 1 [facility] m oxalate 8-29 tablet by ity o f 20 mg 00:00: mouth in [place] tablet 00 the Medical morning. Branch pantoprazol Yes [id number] 40mg Take 20 mL [facility] e 2 mg/mL 8-29 by mouth ity of oral 00:00: in the [place] suspension 00 morning. Medic al Branch lipase-prot Yes 1{capsu Take 1 U nivers ease-amylas 8-29 le} capsule by it y of e (CREON) 00:00: mouth in [facility] -,0 00 the Medical morning Branch unit and 1 capsule capsule at noon and 1 capsule in the evening. Take with meals. ARIPiprazol Yes [id number] 5mg Take 1 [facility] e 5 mg 8-29 tablet by ity of tablet 00:00: mouth in [place] 00 the Medical morning. Branch albuterol Yes 2.5mg Inhale 3 Uni vers 2.5 mg /3 8-29 mL every 4 ity of mL (0.083 00:00: (four) [place] %) 00 hours as Medical nebulizer needed for Bran ch solution Wheezing, Shortness of Breath or Bronchospa sm. gabapentin Yes [id number] 800mg Take 1 [facility] 800 mg 8-29 [id number] tablet by ity of tablet 00:00: mouth in [place] 00 the Medical morning Branch and 1 tablet at noon and 1 tablet in the evening. ketoconazol Yes [id number] Apply to [facility] e 2 % 8-29 area(s) ity of shampoo 00:00: [place] 00 as needed Medical for Branch Itching. escitalopra Yes [id number] 20mg Take 1 [facility] m oxalate 8-29 tablet by ity o f 20 mg 00:00: mouth in [place] tablet 00 the Medical morning. Branch pantoprazol Yes [id number] 40mg Take 20 mL [facility] e 2 mg/mL 8-29 by mouth ity of oral 00:00: in the [place] suspension 00 morning. Medic al Branch lipase-prot Yes 1{capsu Take 1 U nivers ease-amylas 8-29 le} capsule by it y of e (CREON) 00:00: [place] 12,000-38,0 00 the [facility] 00 -60,000 morning Branch unit and 1 capsule capsule at noon and 1 capsule in the evening. Take with meals. ARIPiprazol Yes [id number] 5mg Take 1 [facility] e 5 mg [...] Breath or Bronchospa sm. gabapentin 0 Yes [id number] 800mg Take 1 [facility] 800 mg 8-29 [id number] tablet by ity of tablet 00:00: mouth in [place] 00 the Medical morning Branch and 1 tablet at noon and 1 tablet in the evening. ketoconazol Yes [id number] Apply to [facility] e 2 % 8-29 area(s) ity of shampoo 00:00: [place] as needed Medical for Branch Itching. escitalopra Yes [id number] 20mg Take 1 [facility] m oxalate 8-29 tablet by ity o f 20 mg 00:00: mouth in [place] tablet 00 the Medical morning. Branch pantoprazol Yes [id number] 40mg Take 20 mL [facility] e 2 [...] the evening. Take with meals. ARIPiprazol Yes [id number] 5mg Take 1 [facility] e 5 mg 8-29 tablet by ity of tablet 00:00: mouth in [place] 00 the Medical morning. Branch albuterol Yes 2.5mg Inhale 3 Uni vers 2.5 mg /3 8-29 mL every 4 ity of mL (0.083 00:00: (four) [place] %) 00 hours as Medical nebulizer needed for Bran ch solution Wheezing, Shortness of Breath or Bronchospa sm. gabapentin Yes [id number] 800mg Take 1 [facility] 800 mg 8-29 [id number] tablet by ity of tablet 00:00: mouth in [place] 00 the Medical morning Branch and 1 tablet at noon and 1 tablet in the evening. ketoconazol Yes [id number] Apply to [facility] e 2 % 8-29 area(s) ity of shampoo 00:00: [place] 00 as needed Medical for Branch Itching. escitalopra Yes [id number] 20mg Take 1 [facility] m oxalate 8-29 tablet by ity o f 20 mg 00:00: mouth in [place] tablet 00 the Medical morning. Branch pantoprazol Yes [id number] 40mg Take 20 mL [facility] e 2 mg/mL 8-29 by mouth ity of oral 00:00: in the [place] suspension 00 morning. Medic al Branch lipase-prot Yes 1{capsu Take 1 U nivers ease-amylas 8-29 le} capsule by it y of e (CREON) 00:00: [facility] 12-38,0 [facility] the Medical 60, morning Branch unit and 1 capsule capsule at noon and 1 capsule in the evening. Take with meals. ARIPiprazol Yes [id number] 5mg Take 1 [facility] e 5 mg 8-29 tablet by ity of tablet 00:00: mouth in [place] 00 the morning. Branch albuterol Yes 2.5mg Inhale 3 Uni vers 2.5 mg /3 8-29 mL every 4 ity of mL (0.083 00:00: (four) [place] %) 00 hours as Medical nebulizer needed for Bran ch solution Wheezing, Shortness of Breath or Bronchospa sm. gabapentin Yes [id number] 800mg Take 1 [facility] 800 mg 8-29 [id number] tablet by ity of tablet 00:00: mouth in [place] 00 the Medical morning Branch and 1 tablet at noon and 1 tablet in the evening. ketoconazol Yes [id number] Apply to [facility] e 2 % 8-29 area(s) ity of shampoo 00:00: once daily [facility] s 00 as needed Medical for Branch Itching. escitalopra Yes [id number] 20mg Take 1 [facility] m oxalate 8-29 tablet by ity o f 20 mg 00:00: mouth in [place] tablet 00 the Medical morning. Branch pantoprazol Yes [id number] 40mg Take 20 mL [facility] e 2 mg/mL 8-29 by mouth ity of oral 00:00: in the [place] suspension 00 morning. Medic al Branch lipase-prot Yes 1{capsu Take 1 U nivers ease-amylas 8-29 le} capsule by it y of e (CREON) 00:00: mouth in [facility] 12-38,0 00 the Medical 60, morning Branch unit and 1 capsule capsule at noon and 1 capsule in the evening. Take with meals. ARIPiprazol Yes [id number] 5mg Take 1 [facility] e 5 mg 8-29 tablet by ity of tablet 00:00: mouth in [place] 00 the Medical morning. Branch albuterol Yes 2.5mg Inhale 3 Uni vers 2.5 mg /3 8-29 mL every 4 ity of mL (0.083 00:00: (four) [place] %) 00 hours as Medical nebulizer needed for Bran ch solution Wheezing, Shortness of Breath or Bronchospa sm. gabapentin Yes [id number] 800mg Take 1 [facility] 800 mg 8-29 [id number] tablet by ity of tablet 00:00: mouth in [place] 00 the Medical morning Branch and 1 tablet at noon and 1 tablet in the evening. ketoconazol Yes [id number] Apply to [facility] e 2 % 8-29 area(s) ity of shampoo 00:00: [place] 00 as needed Medical for Branch Itching. escitalopra Yes [id number] 20mg Take 1 [facility] m oxalate 8-29 tablet by ity o f 20 mg 00:00: mouth in [place] tablet 00 the Medical morning. Branch pantoprazol Yes [id number] 40mg Take 20 mL [facility] e 2 [...] the evening. Take with meals. ARIPiprazol Yes [id number] 5mg Take 1 [facility] e 5 mg 8-29 tablet by ity of tablet 00:00: mouth in [place] 00 the Medical morning. Branch albuterol Yes 2.5mg Inhale 3 Uni vers 2.5 mg /3 8-29 mL every 4 ity of mL (0.083 00:00: (four) [place] %) 00 hours as Medical nebulizer needed for Bran ch solution Wheezing, Shortness of Breath or Bronchospa sm. gabapentin Yes [id number] 800mg Take 1 [facility] 800 mg 8-29 [id number] tablet by ity of tablet 00:00: mouth in [place] 00 the Medical morning Branch and 1 tablet at noon and 1 tablet in the evening. ketoconazol Yes [id number] Apply to [facility] e 2 % 8-29 area(s) ity of shampoo 00:00: once daily [place] 00 as needed Medical for Branch Itching. escitalopra Yes [id number] 20mg Take 1 [facility] m oxalate 8-29 tablet by ity o f 20 mg 00:00: mouth in [place] tablet 00 the Medical morning. Branch pantoprazol Yes [id number] 40mg Take 20 mL [facility] e 2 mg/mL 8-29 by mouth ity of oral 00:00: in the [place] suspension 00 morning. Medic al Branch lipase-prot Yes 1{capsu Take 1 U nivers ease-amylas 8-29 le} capsule by it y of e (CREON) 00:00: mouth in [facility] s 12,000-38,0 00 the Medical 00 -60,000 morning Branch unit and 1 capsule capsule at noon and 1 capsule in the evening. Take with meals. ARIPiprazol Yes [id number] 5mg Take 1 [facility] e 5 mg 8-29 tablet by ity of tablet 00:00: mouth in [place] 00 the Medical morning. Branch albuterol Yes 2.5mg Inhale 3 Uni vers 2.5 mg /3 8-29 mL every 4 ity of mL (0.083 00:00: (four) [place] %) 00 hours as Medical nebulizer needed for Bran ch solution Wheezing, Shortness of Breath or Bronchospa sm. gabapentin Yes [id number] 800mg Take 1 [facility] 800 mg 8-29 [id number] tablet by ity of tablet 00:00: mouth in [place] 00 the Medical morning Branch and 1 tablet at noon and 1 tablet in the evening. ketoconazol Yes [id number] Apply to [facility] e 2 % 8-29 area(s) ity of shampoo 00:00: once daily [place] 00 as needed Medical for Branch Itching. escitalopra Yes [id number] 20mg Take 1 [facility] m oxalate 8-29 tablet by ity o f 20 mg 00:00: mouth in [place] tablet 00 the Medical morning. Branch pantoprazol Yes [id number] 40mg Take 20 mL [facility] e 2 mg/mL 8-29 by mouth ity of oral 00:00: in the [place] suspension 00 morning. Medic al Branch lipase-prot Yes 1{capsu Take 1 U nivers ease-amylas 8-29 le} capsule by it y of e (CREON) 00:00: mouth in [facility] -38,0 00 the Medical 60,000 morning Branch unit and 1 capsule capsule at noon and 1 capsule in the evening. Take with meals. ARIPiprazol Yes [id number] 5mg Take 1 [facility] e 5 mg 8-29 tablet by ity of tablet 00:00: mouth in [place] 00 the Medical morning. Branch albuterol Yes 2.5mg Inhale 3 Uni vers 2.5 mg /3 8-29 mL every 4 ity of mL (0.083 00:00: (four) [place] %) 00 hours as Medical nebulizer needed for Bran ch solution Wheezing, Shortness of Breath or Bronchospa sm. ketoconazol Yes [id number] Apply to [facility] e 2 % 8-29 area(s) ity of shampoo 00:00: once daily [place] 00 as needed Medical for Branch Itching. escitalopra Yes [id number] 20mg Take 1 [facility] m oxalate 8-29 tablet by ity o f 20 mg 00:00: mouth in [place] tablet 00 the Medical morning. Branch pantoprazol Yes [id number] 40mg Take 20 mL [facility] e 2 mg/mL 8-29 by mouth ity of oral 00:00: in the [place] suspension 00 morning. Medic al Branch lipase-prot Yes 1{capsu Take 1 U nivers ease-amylas 8-29 le} capsule by it y of e (CREON) 00:00: mouth in [facility] -38,0 00 the Medical 60,000 morning Branch unit and 1 capsule capsule at noon and 1 capsule in the evening. Take with meals. ARIPiprazol Yes [id number] 5mg Take 1 [facility] e 5 mg 8-29 tablet by ity of tablet 00:00: mouth in [place] 00 the Medical morning. Branch albuterol Yes 2.5mg Inhale 3 Uni vers 2.5 mg /3 8-29 mL every 4 ity of mL (0.083 00:00: (four) [place] %) 00 hours as Medical nebulizer needed for Bran ch solution Wheezing, Shortness of Breath or Bronchospa sm. ketoconazol Yes [id number] Apply to [facility] e 2 % 8-29 area(s) ity of shampoo 00:00: once daily [place] 00 as needed Medical for Branch Itching. escitalopra Yes [id number] 20mg Take 1 [facility] m oxalate 8-29 tablet by ity o f 20 mg 00:00: mouth in [place] tablet 00 the Medical morning. Branch pantoprazol Yes [id number] 40mg Take 20 mL [facility] e 2 mg/mL 8-29 by mouth ity of oral 00:00: in the [place] suspension 00 morning. Medic al Branch lipase-prot Yes 1{capsu Take 1 U nivers ease-amylas 8-29 le} capsule by it y of e (CREON) 00:00: mouth in [facility] 12,000-38,0 00 the Medical 00 -60,000 morning Branch unit and 1 capsule capsule at noon and 1 capsule in the evening. Take with meals. ARIPiprazol Yes [id number] 5mg Take 1 [facility] e 5 mg 8-29 tablet by ity of tablet 00:00: mouth in [place] 00 the Medical morning. Branch albuterol Yes 2.5mg Inhale 3 Uni vers 2.5 mg /3 8-29 mL every 4 ity of mL (0.083 00:00: (four) [place] %) 00 hours as Medical nebulizer needed for Bran ch solution Wheezing, Shortness of Breath or Bronchospa sm. ketoconazol Yes [id number] Apply to [facility] e 2 % 8-29 area(s) ity of shampoo 00:00: once daily [place] 00 as needed Medical for Branch Itching. escitalopra 2022-0 Yes [id number] 20mg Take 1 [facility] m oxalate 8-29 tablet by ity o f 20 mg 00:00: mouth in [place] tablet 00 the Medical morning. Branch pantoprazol Yes [id number] 40mg Take 20 mL [facility] e 2 mg/mL 8-29 by mouth ity of oral 00:00: in the [place] suspension 00 morning. Medic al Branch lipase-prot Yes 1{capsu Take 1 U nivers ease-amylas 8-29 le} capsule by it y of e (CREON) 00:00: mouth in [place] -38,0 00 the Medical 60,000 morning Branch unit and 1 capsule capsule at noon and 1 capsule in the evening. Take with meals. ARIPiprazol Yes [id number] 5mg Take 1 [facility] e 5 mg 8-29 tablet by ity of tablet 00:00: mouth in [place] 00 the Medical morning. Branch albuterol Yes 2.5mg Inhale 3 Uni vers 2.5 mg /3 8-29 mL every 4 ity of mL (0.083 00:00: (four) [place] %) 00 hours as Medical nebulizer needed for Bran ch solution Wheezing, Shortness of Breath or Bronchospa sm. ketoconazol Yes [id number] Apply to [facility] e 2 % 8-29 area(s) ity of shampoo 00:00: once daily [place] 00 as needed Medical for Branch Itching. escitalopra 0 Yes [id number] 20mg Take 1 [facility] m oxalate 8-29 tablet by ity o f 20 mg 00:00: mouth in [place] tablet 00 the Medical morning. Branch pantoprazol Yes [id number] 40mg Take 20 mL [facility] e 2 mg/mL 8-29 by mouth ity of oral 00:00: in the [place] suspension 00 morning. Medic al Branch lipase-prot Yes 1{capsu Take 1 U nivers ease-amylas 8-29 le} capsule by it y of e (CREON) 00:00: mouth [place] 12-38,0 00 the Medical 60,000 morning Branch unit and 1 capsule capsule at noon and 1 capsule in the evening. Take with meals. ARIPiprazol Yes [id number] 5mg Take 1 [facility] e 5 mg 8-29 tablet by ity of tablet 00:00: mouth in [place] 00 the Medical morning. Branch albuterol Yes 2.5mg Inhale 3 Uni vers 2.5 mg /3 8-29 mL every 4 ity of mL (0.083 00:00: (four) [place] %) 00 hours as Medical nebulizer needed for Bran ch solution Wheezing, Shortness of Breath or Bronchospa sm. ketoconazol Yes [id number] Apply to [facility] e 2 % 8-29 area(s) ity of shampoo 00:00: once daily [place] 00 as needed Medical for Branch Itching. escitalopra Yes [id number] 20mg Take 1 [facility] m oxalate 8-29 tablet by ity o f 20 mg 00:00: mouth in [place] tablet 00 the Medical morning. Branch pantoprazol Yes [id number] 40mg Take 20 mL [facility] e 2 mg/mL 8-29 by mouth ity of oral 00:00: in the [place] suspension 00 morning. Medic al Branch lipase-prot Yes 1{capsu Take 1 U nivers ease-amylas 8-29 le} capsule by it y of e (CREON) 00:00: mouth in [facility] s 12,000-38,0 00 the Medical 00 -60,000 morning Branch unit and 1 capsule capsule at noon and 1 capsule in the evening. Take with meals. ARIPiprazol Yes [id number] 5mg Take 1 [facility] e 5 mg [...] of Breath or Bronchospa sm. ketoconazol Yes [id number] Apply to [facility] e 2 % 8-29 area(s) ity of shampoo 00:00: once daily [place] 00 as needed Medical for Branch Itching. escitalopra Yes [id number] 20mg Take 1 [facility] m oxalate 8-29 tablet by ity o f 20 mg 00:00: mouth in [place] tablet 00 the Medical morning. Branch pantoprazol Yes [id number] 40mg Take 20 mL [facility] e 2 mg/mL 8-29 by mouth ity of oral 00:00: in the [place] suspension 00 morning. Medic al Branch lipase-prot Yes 1{capsu Take 1 U nivers ease-amylas 8-29 le} capsule by it y of e (CREON) 00:00: mouth [place] 12,-38,0 00 the Medical 60,000 morning Branch unit and 1 capsule capsule at noon and 1 capsule in the evening. Take with meals. ARIPiprazol Yes [id number] 5mg Take 1 [facility] e 5 mg 8-29 tablet by ity of tablet 00:00: mouth in [place] 00 the Medical morning. Branch albuterol Yes 2.5mg Inhale 3 Uni vers 2.5 mg /3 8-29 mL every 4 ity of mL (0.083 00:00: (four) [place] %) 00 hours as Medical nebulizer needed for Bran ch solution Wheezing, Shortness of Breath or Bronchospa sm. ketoconazol Yes [id number] Apply to Univers e 2 % 8-29 area(s) ity of shampoo 00:00: [place] daily [place] 00 as needed Medical for Branch Itching. escitalopra Yes [id number] 20mg Take 1 [facility] m oxalate 8-29 tablet by ity o f 20 mg 00:00: mouth in [place] tablet 00 the Medical morning. Branch pantoprazol Yes [id number] 40mg Take 20 mL [facility] e 2 mg/mL 8-29 by mouth ity of oral 00:00: in the [place] suspension 00 morning. Medic al Branch lipase-prot Yes 1{capsu Take 1 U nivers ease-amylas 8-29 le} capsule by it y of e (CREON) 00:00: mouth [place] 12-38,0 00 the Medical 60,000 morning Branch unit and 1 capsule capsule at noon and 1 capsule in the evening. Take with meals. ARIPiprazol Yes [id number] 5mg Take 1 [facility] e 5 mg 8-29 tablet by ity of tablet 00:00: mouth in [place] 00 the Medical morning. Branch albuterol Yes 2.5mg Inhale 3 Uni vers 2.5 mg /3 8-29 mL every 4 ity of mL (0.083 00:00: (four) [place] %) 00 hours as Medical nebulizer needed for Bran ch solution Wheezing, Shortness of Breath or Bronchospa sm. ketoconazol Yes [id number] Apply to Univers e 2 % 8-29 area(s) ity of shampoo 00:00: once daily [place] 00 as needed Medical for Branch Itching. escitalopra Yes [id number] 20mg Take 1 [facility] m oxalate 8-29 tablet by ity o f 20 mg 00:00: mouth in [place] tablet 00 the Medical morning. Branch pantoprazol Yes [id number] 40mg Take 20 mL [facility] e 2 mg/mL 8-29 by mouth ity of oral 00:00: in the [place] suspension 00 morning. Medic al Branch lipase-prot Yes 1{capsu Take 1 U nivers ease-amylas 8-29 le} capsule by it y of e (CREON) 00:00: mouth in [facility] s 12,000-38,0 00 the Medical 00 -60,000 morning Branch unit and 1 capsule capsule at noon and 1 capsule in the evening. Take with meals. ARIPiprazol Yes [id number] 5mg Take 1 [facility] e 5 mg [...] of Breath or Bronchospa sm. ketoconazol Yes [id number] Apply to [facility] e 2 % 8-29 area(s) ity of shampoo 00:[place] 00 [place] needed Medical for Branch Itching. escitalopra Yes [id number] 20mg Take 1 [facility] m oxalate 8-29 tablet by ity o f 20 mg 00:00: mouth in [place] tablet 00 the Medical morning. Branch pantoprazol Yes [id number] 40mg Take 20 mL Univers e 2 mg/mL 8-29 by mouth ity of oral 00:00: in the [place] suspension 00 morning. Medic al Branch lipase-prot Yes 1{capsu Take 1 U nivers ease-amylas 8-29 le} capsule by it y of e (CREON[place] 00:[place] -,[place] 00 the Medical morning Branch unit and 1 capsule capsule at noon and 1 capsule in the evening. Take with meals. ARIPiprazol Yes [id number] 5mg Take 1 [facility] e 5 mg 8-29 tablet by ity of tablet 00:00: mouth in [place] 00 the Medical morning. Branch albuterol Yes 2.5mg Inhale 3 Uni vers 2.5 mg /3 8-29 mL every 4 ity of mL (0.083 00:00: (four) [place] %) 00 hours as Medical nebulizer needed for Bran ch solution Wheezing, Shortness of Breath or Bronchospa sm. ketoconazol Yes [id number] Apply to [facility] e 2 % 8-29 area(s) ity of shampoo 00:00: [place] 00 as needed Medical for Branch Itching. escitalopra Yes [id number] 20mg Take 1 [facility] m oxalate 8-29 tablet by ity o f 20 mg 00:00: mouth in [place] tablet 00 the Medical morning. Branch lipase-prot Yes 1{capsu Take 1 U nivers ease-amylas 8-29 le} capsule by it y of e (CREON) 00:00[place] -,[place] 00 the Medical morning Branch unit and 1 capsule capsule at noon and 1 capsule in the evening. Take with meals. ARIPiprazol Yes [id number] 5mg Take 1 [facility] e 5 mg 8-29 tablet by ity of tablet 00:00: mouth in [place] 00 the Medical morning. Branch albuterol 2022-0 Yes 2.5mg Inhale 3 Uni vers 2.5 mg /3 8-29 mL every 4 ity of mL (0.083 00:00: (four) [place] %) 00 hours as Medical nebulizer needed for Bran ch solution Wheezing, Shortness of Breath or Bronchospa sm. ketoconazol Yes [id number] Apply to [facility] e 2 % 8-29 area(s) ity of shampoo 00:00: [place] 00 as needed Medical for Branch Itching. escitalopra Yes [id number] 20mg Take 1 [facility] m oxalate 8-29 tablet by ity o f 20 mg 00:00: mouth in [place] tablet 00 the Medical morning. Branch lipase-prot Yes 1{capsu Take 1 U nivers ease-amylas 8-29 le} capsule by it y of e (CREON) [facility] the Medical 00 -60,000 morning Branch unit and 1 capsule capsule at noon and 1 capsule in the evening. Take with meals. ARIPiprazol Yes [id number] 5mg Take 1 [facility] e 5 mg 8-29 tablet by ity of tablet 00:00: mouth in [place] 00 the Medical morning. Branch albuterol Yes 2.5mg Inhale 3 Uni vers 2.5 mg /3 8-29 mL every 4 ity of mL (0.083 00:00: (four) [place] %) 00 hours as Medical nebulizer needed for Bran ch solution Wheezing, Shortness of Breath or Bronchospa sm. ketoconazol Yes [id number] Apply to [facility] e 2 % 8-29 area(s) ity of shampoo 00:00: once [place] 00 as needed Medical for Branch Itching. escitalopra Yes [id number] 20mg Take 1 [facility] m oxalate 8-29 tablet by ity o f 20 mg 00:00: mouth in [place] tablet 00 the Medical morning. Branch lipase-prot Yes 1{capsu Take 1 U nivers ease-amylas 8-29 le} capsule by it y of e (CREON) 00:00: [place] 12,000-38,0 00 the Medical -60,000 morning Branch unit and 1 capsule capsule at noon and 1 capsule in the evening. Take with meals. ARIPiprazol 0 Yes [id number] 5mg Take 1 [facility] e 5 mg [...] of Breath or Bronchospa sm. ketoconazol Yes [id number] Apply to [facility] e 2 % 8-29 area(s) ity of shampoo 00:00: once [place] 00 as needed Medical for Branch Itching. escitalopra Yes [id number] 20mg Take 1 [facility] m oxalate 8-29 tablet by ity o f 20 mg 00:00: mouth in [place] tablet 00 the Medical morning. Branch lipase-prot Yes 1{capsu Take 1 U nivers ease-amylas 8-29 le} capsule by it y of e (CREON) 00:00: mouth in [facility] -38,0 00 the [facility] 60,000 morning Branch unit and 1 capsule capsule at noon and 1 capsule in the evening. Take with meals. ARIPiprazol Yes [id number] 5mg Take 1 [facility] e 5 mg 8-29 tablet by ity of tablet 00:00: mouth in [place] 00 the Medical morning. Branch albuterol Yes 2.5mg Inhale 3 Uni vers 2.5 mg /3 8-29 mL every 4 ity of mL (0.083 00:00: (four) [place] %) 00 hours as Medical nebulizer needed for Bran ch solution Wheezing, Shortness of Breath or Bronchospa sm. ketoconazol Yes [id number] Apply to [facility] e 2 % 8-29 area(s) ity of shampoo 00:00: once daily [place] 00 as needed Medical for Branch Itching. escitalopra Yes [id number] 20mg Take 1 [facility] m oxalate 8-29 tablet by ity o f 20 mg 00:00: mouth in [place] tablet 00 the Medical morning. Branch ARIPiprazol 0 Yes [id number] 5mg Take 1 [facility] e 5 mg [...] of Breath or Bronchospa sm. ketoconazol Yes [id number] Apply to [facility] e 2 % 8-29 area(s) ity of shampoo 00:00: once daily [place] 00 as needed Medical for Branch Itching. escitalopra Yes [id number] 20mg Take 1 [facility] m oxalate 8-29 tablet by ity o f 20 mg 00:00: mouth in [place] tablet 00 the Medical morning. Branch ARIPiprazol Yes [id number] 5mg Take 1 [facility] e 5 mg 8-29 tablet by ity of tablet 00:00: mouth in [place] 00 the Medical morning. Branch ketoconazol Yes [id number] Apply to [facility] e 2 % 8-29 area(s) ity of shampoo 00:00: once daily [place] 00 as needed Medical for Branch Itching. escitalopra Yes [id number] 20mg Take 1 Univers m oxalate 8-29 tablet by ity o f 20 mg 00:00: mouth in [place] tablet 00 the Medical morning. Branch ARIPiprazol 0 Yes [id number] 5mg Take 1 [facility] e 5 mg 8-29 tablet by ity of tablet 00:00: mouth in [place] 00 the Medical morning. Branch ketoconazol Yes [id number] Apply to [facility] e 2 % 8-29 area(s) ity of shampoo 00:00: once daily [place] 00 as needed Medical for Branch Itching. escitalopra 2021- Yes [id number] 20mg Take 1 Univers m oxalate 8-29 tablet by ity o f 20 mg 00:00: mouth in [place] tablet 00 the Medical morning. Branch ARIPiprazol 2021-0 Yes [id number] 5mg Take 1 [facility] e 5 mg 8-29 tablet by ity of tablet 00:00: mouth in [place] 00 the Medical morning. Branch ketoconazol 2021-0 Yes [id number] Apply to [facility] e 2 % 8-29 area(s) ity of shampoo 00:00: once daily [place] 00 as needed Medical for Branch Itching. escitalopra 2021-0 Yes [id number] 20mg Take 1 Univers m oxalate 8-29 tablet by ity o f 20 mg 00:00: mouth in [place] tablet 00 the Medical morning. Branch ARIPiprazol 2021-0 Yes [id number] 5mg Take 1 [facility] e 5 mg 8-29 tablet by ity of tablet 00:00: mouth in [place] 00 the Medical morning. Branch ketoconazol 2021-0 Yes [id number] Apply to [facility] e 2 % 8-29 area(s) ity of shampoo 00:00: once daily [place] 00 as needed Medical for Branch Itching. ARIPiprazol 2021-0 Yes [id number] 5mg Take 1 [facility] e 5 mg 8-29 tablet by ity of tablet 00:00: mouth in [place] 00 the Medical morning. Branch ketoconazol 2021-0 Yes [id number] Apply to [facility] e 2 % 8-29 area(s) ity of shampoo 00:00: once daily [place] 00 as needed Medical for Branch Itching. ARIPiprazol 2021-0 Yes [id number] 5mg Take 1 [facility] e 5 mg 8-29 tablet by ity of tablet 00:00: mouth in [place] 00 the Medical morning. Branch ketoconazol 2021-0 Yes [id number] Apply to [facility] e 2 % 8-29 area(s) ity of shampoo 00:00: once daily [place] 00 as needed Medical for Branch Itching. ARIPiprazol 2021-0 Yes [id number] 5mg Take 1 [facility] e 5 mg 8-29 tablet by ity of tablet 00:00: mouth in [place] 00 the Medical morning. Branch ketoconazol 2021-0 Yes [id number] Apply to [facility] e 2 % 8-29 area(s) ity of shampoo 00:00: once daily [place] 00 as needed Medical for Branch Itching. ARIPiprazol 2021-0 Yes [id number] 5mg Take 1 [facility] e 5 mg 8-29 tablet by ity of tablet 00:00: mouth in [place] 00 the Medical morning. Branch ketoconazol 2021-0 Yes [id number] Apply to [facility] e 2 % 8-29 area(s) ity of shampoo 00:00: once daily [place] 00 as needed Medical for Branch Itching. ARIPiprazol 2021-0 Yes [id number] 5mg Take 1 [facility] e 5 mg 8-29 tablet by ity of tablet 00:00: mouth in [place] 00 the Medical morning. Branch ketoconazol 2021-0 Yes [id number] Apply to [facility] e 2 % 8-29 area(s) ity of shampoo 00:00: once daily [place] 00 as needed Medical for Branch Itching. ARIPiprazol 2021-0 Yes [id number] 5mg Take 1 [facility] e 5 mg 8-29 tablet by ity of tablet 00:00: mouth in [place] 00 the Medical morning. Branch ketoconazol 0 Yes [id number] Apply to [facility] e 2 % 8-29 area(s) ity of shampoo 00:00: once daily [place] 00 as needed Medical for Branch Itching. ARIPiprazol 2021-0 Yes [id number] 5mg Take 1 [facility] e 5 mg 8-29 tablet by ity of tablet 00:00: mouth in [place] 00 the Medical morning. Branch ketoconazol 2021-0 Yes [id number] Apply to [facility] e 2 % 8-29 area(s) ity of shampoo 00:00: once daily [place] 00 as needed Medical for Branch Itching. ARIPiprazol 2021-0 Yes [id number] 5mg Take 1 [facility] e 5 mg 8-29 tablet by ity of tablet 00:00: mouth in [place] 00 the Medical morning. Branch ketoconazol 2021-0 Yes [id number] Apply to [facility] e 2 % 8-29 area(s) ity of shampoo 00:00: once daily [place] 00 as needed Medical for Branch Itching. ARIPiprazol 2021-0 Yes [id number] 5mg Take 1 [facility] e 5 mg 8-29 tablet by ity of tablet 00:00: mouth in [place] 00 the Medical morning. Branch ketoconazol Yes [id number] Apply to [facility] e 2 % 8-29 area(s) ity of shampoo 00:00: once daily [place] 00 as needed Medical for Branch Itching. ARIPiprazol Yes [id number] 5mg Take 1 [facility] e 5 mg 8-29 tablet by ity of tablet 00:00: mouth in [place] 00 the Medical morning. Branch ketoconazol 0 Yes [id number] Apply to [facility] e 2 % 8-29 area(s) ity of shampoo 00:00: once daily [place] 00 as needed Medical for Branch Itching. ketoconazol Yes [id number] Apply to [facility] e 2 % 8-29 area(s) ity of shampoo 00:00: once daily [place] 00 as needed Medical for Branch Itching. ketoconazol Yes [id number] Apply to [facility] e 2 % 8-29 area(s) ity of shampoo 00:00: once daily [place] 00 as needed Medical for Branch Itching. ketoconazol Yes [id number] Apply to [facility] e 2 % 8-29 area(s) ity of shampoo 00:00: once daily [place] 00 as needed Medical for Branch Itching. ketoconazol 2022- No [id number] Apply to [facility] e 2 % 8-11-30 area(s) ity of shampoo 00:00: 00:00 once daily [place] 00 :00 as needed Medical for Branch Itching. ARIPiprazol 2021-0 2022- No [id number] 5mg Take 1 [facility] e 5 mg 8-27 11- tablet by ity of tablet 00:00: 00:00 mouth in [place] 00 :00 the Medical morning. Branch ARIPiprazol 2021-0 3- No [id number] 5mg Take 1 [facility] e 5 mg 8-27 11- tablet by ity of tablet 00:00: 00:00 mouth in [place] 00 :00 the Medical morning. Branch escitalopra 2021-0 2022- No [id number] 20mg Take 1 Univers m oxalate 10-31 tablet by ity of 20 mg 00:00: 00:00 mouth in [place] tablet 00 :00 the Medical morning. Branch albuterol 2022- No 2.5mg Inhale 3 Un [place] 2.5 mg /3 11-27 07-13 mL every 4 ity of mL (0.083 00:00: 00:00 (four) [place] %) 00 :00 hours as Medical nebulizer needed for Bran ch solution Wheezing, Shortness of Breath or Bronchospa sm. albuterol 2022- No 2.5mg Inhale 3 Un maddie 2.5 mg /3 11-27 07-13 mL every 4 ity of mL (0.083 00:00: 00:00 (four) [place] %) 00 :00 hours as Medical nebulizer needed for Bran ch solution Wheezing, Shortness of Breath or Bronchospa sm. lipase-prot 2022- No 1{capsu Take 1 Univers ease-amylas 11-2712 le} capsule by i ty of e (CREON) 00:00: 00:00 mouth in [place] 12,000-38,0 00 :00 the [facility] 00 -60,000 morning Branch unit and 1 capsule capsule at noon and 1 capsule in the evening. Take with meals. pantoprazol 2022- No [id number] 40mg Take 20 mL Univers e 2 mg/mL 11-27 by mouth ity o f oral 00:00: 00:00 in the [place] suspension 00 :00 morning. Medic al Branch pantoprazol 2022- No [id number] 40mg Take 20 mL Univers e 2 mg/mL 11-27 by mouth ity o f oral 00:00: 00:00 in the [place] suspension 00 :00 morning. Medic al Branch gabapentin 2022- No [id number] 800mg Take 1 Univers 800 mg 11-27 [id number] tablet by ity o f tablet 00:00: 00:00 mouth in [place] 00 :00 the Medical morning Branch and 1 tablet at noon and 1 tablet in the evening. escitalopra 2021- No [id number] 20mg Take 1 Univers m oxalate 08-14 tablet by ity of 20 mg 00:00: 00:00 mouth [place] tablet 00 :00 daily. Medical Branch levothyroxi 2021-0 Yes [id number] 1 tablet Univers ne 137 mcg 5-13 PO every ity o f tablet 00:00: other day [place] 00 Medical Branch levothyroxi 2021-0 Yes [id number] 1 tablet Univers ne 137 mcg 5-13 PO every ity o f tablet 00:00: other day [place] 00 Medical Branch levothyroxi 2021-0 2022- No [id number] 1 tablet Univers ne 137 mcg 5-13 10-11 PO every ity of tablet 00:00: 00:00 other day [place] 00 :00 Medical Branch gabapentin 2-0 2- No [id number] 800mg Take 1 Univers 800 mg 5-11 - [id number] tablet by ity o f tablet 00:00: [...] by mouth ity of tablet 13:49: at [place] [address] bedtime. Medical Branch ferrous 2021-0 Yes 300mg Take 300 Unive rs sulfate 300 4-12 mg by ity of mg (60 mg 13:49: mouth 2 [place] iron)/5 mL 44 (two) Medical solution times Branch daily. atorvastati 2021-0 Yes 80mg Take 80 mg Univers n 80 mg 4-12 by mouth ity of tablet 13:49: at [place] [address] bedtime. Medical Branch ferrous 2021-0 Yes 300mg Take 300 Unive rs sulfate 300 4-12 mg by ity of mg (60 mg 13:49: mouth 2 [place] iron)/5 mL 44 (two) Medical solution times Branch daily. atorvastati 2022-0 Yes 80mg Take 80 mg Univers n 80 mg 4-12 by mouth ity of tablet 13:49: at [place] [address] bedtime. Medical Branch ferrous 2-0 Yes 300mg Take 300 Unive rs sulfate 300 4-12 mg by ity of mg (60 mg 13:49: mouth 2 [place] iron)/5 mL 44 (two) Medical solution times Branch daily. atorvastati 2022-0 Yes 80mg Take 80 mg Univers n 80 mg 4-12 by mouth ity of tablet 13:49: at [place] [address] bedtime. Medical Branch ferrous 2022-0 Yes 300mg Take 300 Unive rs sulfate 300 4-12 mg by ity of mg (60 mg 13:49: mouth 2 [place] iron)/5 mL 44 (two) Medical solution times Branch daily. atorvastati 2022-0 Yes 80mg Take 80 mg Univers n 80 mg 4-12 by mouth ity of tablet 13:49: at [place] [address] bedtime. Medical Branch ferrous 2022-0 Yes 300mg Take 300 Unive rs sulfate 300 4-12 mg by ity of mg (60 mg 13:49: mouth 2 [place] iron)/5 mL 44 (two) Medical solution times Branch daily. atorvastati 2022-0 Yes 80mg Take 80 mg Univers n 80 mg 4-12 by mouth ity of tablet 13:49: at [place] [address] bedtime. Medical Branch ferrous 2022-0 Yes 300mg Take 300 Unive rs sulfate 300 4-12 mg by ity of mg (60 mg 13:49: mouth 2 [place] iron)/5 mL 44 (two) Medical solution times Branch daily. atorvastati 2-0 Yes 80mg Take 80 mg Univers n 80 mg 4-12 by mouth ity of tablet 13:49: at [place] [address] bedtime. Medical Branch ferrous 2022-0 Yes 300mg Take 300 Unive rs sulfate 300 4-12 mg by ity of mg (60 mg 13:49: mouth 2 [place] iron)/5 mL 44 (two) Medical solution times Branch daily. atorvastati 2022-0 Yes 80mg Take 80 mg Univers n 80 mg 4-12 by mouth ity of tablet 13:49: at [place] [address] bedtime. Medical Branch ferrous 2022-0 Yes 300mg Take 300 Unive rs sulfate 300 4-12 mg by ity of mg (60 mg 13:49: mouth 2 [place] iron)/5 mL 44 (two) Medical solution times Branch daily. atorvastati 2022-0 Yes 80mg Take 80 mg Univers n 80 mg 4-12 by mouth ity of tablet 13:49: at [place] [address] bedtime. Medical Branch ferrous 2022-0 Yes 300mg Take 300 Unive rs sulfate 300 4-12 mg by ity of mg (60 mg 13:49: mouth 2 [place] iron)/5 mL 44 (two) Medical solution times Branch daily. atorvastati 2022-0 Yes 80mg Take 80 mg Univers n 80 mg 4-12 by mouth ity of tablet 13:49: at [place] [address] bedtime. Medical Branch ferrous 2022-0 Yes 300mg Take 300 Unive rs sulfate 300 4-12 mg by ity of mg (60 mg 13:49: mouth 2 [place] iron)/5 mL 44 (two) Medical solution times Branch daily. atorvastati 2022-0 Yes 80mg Take 80 mg Univers n 80 mg 4-12 by mouth ity of tablet 13:49: at [place] [address] bedtime. Medical Branch ferrous 2022-0 Yes 300mg Take 300 Unive rs sulfate 300 4-12 mg by ity of mg (60 mg 13:49: mouth 2 [place] iron)/5 mL 44 (two) Medical solution times Branch daily. atorvastati 2-0 Yes 80mg Take 80 mg Univers n 80 mg 4-12 by mouth ity of tablet 13:49: at [place] [address] bedtime. Medical Branch ferrous 2-0 Yes 300mg Take 300 Unive rs sulfate 300 4-12 mg by ity of mg (60 mg 13:49: mouth 2 [place] iron)/5 mL 44 (two) Medical solution times Branch daily. atorvastati 2-0 Yes 80mg Take 80 mg Univers n 80 mg 4-12 by mouth ity of tablet 13:49: at [place] [address] bedtime. Medical Branch ferrous 2022-0 Yes 300mg Take 300 Unive rs sulfate 300 4-12 mg by ity of mg (60 mg 13:49: mouth 2 [place] iron)/5 mL 44 (two) Medical solution times Branch daily. atorvastati 2022-0 Yes 80mg Take 80 mg Univers n 80 mg 4-12 by mouth ity of tablet 13:49: at [place] [address] bedtime. Medical Branch ferrous 2022-0 Yes 300mg Take 300 Unive rs sulfate 300 4-12 mg by ity of mg (60 mg 13:49: mouth 2 [place] iron)/5 mL 44 (two) Medical solution times Branch daily. atorvastati 2022-0 Yes 80mg Take 80 mg Univers n 80 mg 4-12 by mouth ity of tablet 13:49: at [place] [address] bedtime. Medical Branch ferrous 2022-0 Yes 300mg Take 300 Unive rs sulfate 300 4-12 mg by ity of mg (60 mg 13:49: mouth 2 [place] iron)/5 mL 44 (two) Medical solution times Branch daily. atorvastati 2022-0 Yes 80mg Take 80 mg Univers n 80 mg 4-12 by mouth ity of tablet 13:49: at [place] [address] bedtime. Medical Branch ferrous 2022-0 Yes 300mg Take 300 Unive rs sulfate 300 4-12 mg by ity of mg (60 mg 13:49: mouth 2 [place] iron)/5 mL 44 (two) Medical solution times Branch daily. atorvastati 2022-0 Yes 80mg Take 80 mg Univers n 80 mg 4-12 by mouth ity of tablet 13:49: at [place] [address] bedtime. Medical Branch ferrous 2022-0 Yes 300mg Take 300 Unive rs sulfate 300 4-12 mg by ity of mg (60 mg 13:49: mouth 2 [place] iron)/5 mL 44 (two) Medical solution times Branch daily. atorvastati 2022-0 Yes 80mg Take 80 mg Univers n 80 mg 4-12 by mouth ity of tablet 13:49: at [place] [address] bedtime. Medical Branch ferrous 2022-0 Yes 300mg Take 300 Unive rs sulfate 300 4-12 mg by ity of mg (60 mg 13:49: mouth 2 [place] iron)/5 mL 44 (two) Medical solution times Branch daily. atorvastati 2022-0 Yes 80mg Take 80 mg Univers n 80 mg 4-12 by mouth ity of tablet 13:49: at [place] [address] bedtime. Medical Branch ferrous 2022-0 Yes 300mg Take 300 Unive rs sulfate 300 4-12 mg by ity of mg (60 mg 13:49: mouth 2 [place] iron)/5 mL 44 (two) Medical solution times Branch daily. atorvastati 2022-0 Yes 80mg Take 80 mg Univers n 80 mg 4-12 by mouth ity of tablet 13:49: at [place] [address] bedtime. Medical Branch ferrous 2022-0 Yes 300mg Take 300 Unive rs sulfate 300 4-12 mg by ity of mg (60 mg 13:49: mouth 2 [place] iron)/5 mL 44 (two) Medical solution times Branch daily. atorvastati 2021-0 Yes 80mg Take 80 mg Univers n 80 mg 4-12 by mouth ity of tablet 13:49: at [place] [address] bedtime. Medical Branch atorvastati 2021-0 Yes 80mg Take 80 mg Univers n 80 mg 4-12 by mouth ity of tablet 13:49: at [place] [address] bedtime. Medical Branch atorvastati 2021-0 Yes 80mg Take 80 mg Univers n 80 mg 4-12 by mouth ity of tablet 13:49: at [place] [address] bedtime. Medical Branch atorvastati 2021-0 Yes 80mg Take 80 mg Univers n 80 mg 4-12 by mouth ity of tablet 13:49: at [place] [address] bedtime. Medical Branch atorvastati 2021-0 Yes 80mg Take 80 mg Univers n 80 mg 4-12 by mouth ity of tablet 13:49: at [place] [address] bedtime. Medical Branch atorvastati 2021-0 Yes 80mg Take 80 mg Univers n 80 mg 4-12 by mouth ity of tablet 13:49: at [place] [address] bedtime. Medical Branch atorvastati 2021-0 Yes 80mg Take 80 mg Univers n 80 mg 4-12 by mouth ity of tablet 13:49: at [place] [address] bedtime. Medical Branch atorvastati 2021-0 Yes 80mg Take 80 mg Univers n 80 mg 4-12 by mouth ity of tablet 13:49: at [place] [address] bedtime. Medical Branch atorvastati 2021-0 Yes 80mg Take 80 mg Univers n 80 mg 4-12 by mouth ity of tablet 13:49: at [place] [address] bedtime. Medical Branch atorvastati 2021-0 Yes 80mg Take 80 mg Univers n 80 mg 4-12 by mouth ity of tablet 13:49: at [place] [address] bedtime. Medical Branch atorvastati 2021-0 Yes 80mg Take 80 mg Univers n 80 mg 4-12 by mouth ity of tablet 13:49: at [place] [address] bedtime. Medical Branch gabapentin 2021-0 2021- No [id number] 600mg Take 1 Univers 600 mg 4-12 11-27 [id number] tablet by ity o f tablet 00:00: 00:00 mouth 3 [place] 00 :00 (three) Medical times Branch daily. pantoprazol 2021-2021- No [id number] 40mg Take 20 mL Univers e 2 mg/mL 3-15 11-27 by mouth ity o f oral 00:00: 00:00 daily. [place] suspension 00 :00 Medical Branch oxyCODONE 2020-04 Yes [id number] 10mg Take 1 Univer s CR 10 mg 12 1-03 tablet by ity of hr tablet 00:00: mouth [place] 00 every 12 Medical (twelve) Branch hours as needed for Pain. PRN Indication s: acute pain oxyCODONE 2020-04 Yes [id number] 10mg Take 1 Univer s CR 10 mg 12 1-03 tablet by ity of hr tablet 00:00: mouth [place] 00 every 12 Medical (twelve) Branch hours as needed for Pain. PRN Indication s: acute pain oxyCODONE 2020-04 Yes [id number] 10mg Take 1 Univer s CR 10 mg 12 1-03 tablet by ity of hr tablet 00:00: mouth [place] 00 every 12 Medical (twelve) Branch hours as needed for Pain. PRN Indication s: acute pain oxyCODONE 2020-04 Yes [id number] 10mg Take 1 Univer s CR 10 mg 12 1-03 tablet by ity of hr tablet 00:00: mouth [place] 00 every 12 Medical (twelve) Branch hours as needed for Pain. PRN Indication s: acute pain oxyCODONE 2020-04 Yes [id number] 10mg Take 1 Univer s CR 10 mg 12 1-03 tablet by ity of hr tablet 00:00: mouth [place] 00 every 12 Medical (twelve) Branch hours as needed for Pain. PRN Indication s: acute pain oxyCODONE 2020-04 Yes [id number] 10mg Take 1 Univer s CR 10 mg 12 1-03 tablet by ity of hr tablet 00:00: mouth [place] 00 every 12 Medical (twelve) Branch hours as needed for Pain. PRN Indication s: acute pain oxyCODONE 2020-04 Yes [id number] 10mg Take 1 Univer s CR 10 mg 12 1-03 tablet by ity of hr tablet 00:00: mouth [place] 00 every 12 Medical (twelve) Branch hours as needed for Pain. PRN Indication s: acute pain oxyCODONE 2020-04 Yes [id number] 10mg Take 1 Univer s CR 10 mg 12 1-03 tablet by ity of hr tablet 00:00: mouth [place] 00 every 12 Medical (twelve) Branch hours [...] Pain. PRN Indication s: acute pain oxyCODONE 2021-1 Yes [id number] 10mg Take 1 Univer s [...] PRN Indication s: acute pain oxyCODONE 2020-04 No [id number] 10mg Take 1 Unive rs CR 10 mg 12 04-03 06-30 tablet by it y of hr tablet 00:00: 00:00 mouth [place] 00 :00 every 12 Medical (twelve) Branch hours as needed for Pain. PRN Indication s: acute pain lipase-prot 2020-04- No [id number] 1{capsu Take 1 [facility] ease-amylas 04-03 08-29 le} capsule by i ty of e (CREON) 00:00: 00:00 mouth 3 [place] 12,000-38,0 00 :00 (three) Medic al 00 -60,000 times Branch unit daily with capsule meals. ARIPiprazol 2020-04- No [id number] 5mg Take 1 Univers e 5 mg 0-10 08-29 tablet by ity of tablet 00:00: 00:00 mouth [place] 00 :00 daily. Medical Branch dicyclomine 2020-04 Yes [id number] 20mg Take 1 Univers 20 mg 0-09 tablet by ity of tablet 00:00: mouth as [place] 00 needed for Medical Abdominal Branch pain. dicyclomine 2020-04 Yes [id number] 20mg Take 1 Univers 20 mg 0-09 tablet by ity of tablet 00:00: mouth as [place] 00 needed for Medical Abdominal Branch pain. dicyclomine 2020-04 Yes [id number] 20mg Take 1 [facility] 20 mg 0-09 tablet by ity of tablet 00:00: mouth as [place] 00 needed for Medical Abdominal Branch pain. dicyclomine 2020-04 Yes [id number] 20mg Take 1 [facility] 20 mg 0-09 tablet by ity of tablet 00:00: mouth as [place] 00 needed for Medical Abdominal Branch pain. dicyclomine 2020-04 Yes [id number] 20mg Take 1 [facility] 20 mg 0-09 tablet by ity of tablet 00:00: mouth as [place] 00 needed for Medical Abdominal Branch pain. dicyclomine 2020-04 Yes [id number] 20mg Take 1 [facility] 20 mg 0-09 tablet by ity of tablet 00:00: mouth as [place] 00 needed for Medical Abdominal Branch pain. dicyclomine 2020-04 Yes [id number] 20mg Take 1 [facility] 20 mg 0-09 tablet by ity of tablet 00:00: mouth as [place] 00 needed for Medical Abdominal Branch pain. dicyclomine 2020-04 Yes [id number] 20mg Take 1 [facility] 20 mg 0-09 tablet by [facility] of tablet 00:00: mouth as [place] 00 needed for Medical Abdominal Branch pain. dicyclomine 2020-04 Yes [id number] 20mg Take 1 [facility] 20 mg 0-09 tablet by ity of tablet 00:00: mouth as [place] 00 needed for Medical Abdominal Branch pain. dicyclomine 2020-04 Yes [id number] 20mg Take 1 [facility] 20 mg 0-09 tablet by [facility]y of tablet 00:00: mouth as [place] 00 needed for Medical Abdominal Branch pain. dicyclomine 2020-04 Yes [id number] 20mg Take 1 [facility] 20 mg 0-09 tablet by ity of tablet 00:00: mouth as [place] 00 needed for Medical Abdominal Branch pain. dicyclomine 2020-04 Yes [id number] 20mg Take 1 [facility] 20 mg 0-09 tablet by [facility]y of tablet 00:00: mouth as [place] 00 needed for Medical Abdominal Branch pain. dicyclomine 2020-04 Yes [id number] 20mg Take 1 [facility] 20 mg 0-09 tablet by ity of tablet 00:00: mouth as [place] 00 needed for Medical Abdominal Branch pain. dicyclomine 2020-04 Yes [id number] 20mg Take 1 [facility] 20 mg 0-09 tablet by ity of tablet 00:00: mouth as [place] 00 needed for Medical Abdominal Branch pain. dicyclomine 2020-04 Yes [id number] 20mg Take 1 [facility] 20 mg 0-09 tablet by [facility]y of tablet 00:00: mouth as [place] 00 needed for Medical Abdominal Branch pain. dicyclomine 2020-04 Yes [id number] 20mg Take 1 [facility] 20 mg 0-09 tablet by [facility]y of tablet 00:00: mouth as [place] 00 needed for Medical Abdominal Branch pain. dicyclomine 2020-04 Yes [id number] 20mg Take 1 [facility] 20 mg 0-09 tablet by [facility]y of tablet 00:00: mouth as [place] 00 needed for Medical Abdominal Branch pain. dicyclomine 2020-04 Yes [id number] 20mg Take 1 [facility] 20 mg 0-09 tablet by ity of tablet 00:00: mouth as [place] 00 needed for Medical Abdominal Branch pain. dicyclomine 2020-04 Yes [id number] 20mg Take 1 [facility] 20 mg 0-09 tablet by ity of tablet 00:00: mouth as [place] 00 needed for Medical Abdominal Branch pain. dicyclomine 2020-04 Yes [id number] 20mg Take 1 [facility] 20 mg 0-09 tablet by ity of tablet 00:00: mouth as [place] 00 needed for Medical Abdominal Branch pain. dicyclomine 2020-04 Yes [id number] 20mg Take 1 [facility] 20 mg 0-09 tablet by [facility]y of tablet 00:00: mouth as [place] 00 needed for Medical Abdominal Branch pain. dicyclomine 2020-04- No [id number] 20mg Take 1 [facility] 20 mg 0 06-30 tablet by ity of tablet 00:00: 00:00 mouth as [place] 00 :00 needed for Medical Abdominal Branch pain. dicyclomine 2020-04- No [id number] 20mg Take 1 [facility] 20 mg 0-09 06-30 tablet by ity of tablet 00:00: 00:00 mouth as [place] 00 :00 needed for Medical Abdominal Branch pain. escitalopra 2019-0 Yes 10mg QD Take [address] [facility] ox[facility] 5-17 [facility] 11:04: daily. [facility] 10 MG 17 Center tablet escitalopra 2019- Yes 10mg QD Take [address] [facility] oxalate 5-17 [facility] ([facility] 11:04: daily. [facility] 10 MG 17 Center tablet escitalopra 2018- Yes 10mg QD Take [address] [facility] oxalate 5-17 [facility] ([facility]) 11:04: daily. [facility] 10 MG 17 Center tablet HYDROcodone Yes 1{tbl} Take [address] -acetaminop 3-23 tablet by [facility] ([facility]CO 00:00: mouth Medica l 7.5-325) 00 every 6 Center 7.5-325 mg (six) per tablet hours as needed for Pain. Max Daily Amount: 4 tablets HYDROcodone Yes 1{tbl} Take [address] -acetaminop 3-23 tablet by [facility] ([facility]CO 00:00: mouth Medica l 7.5-325) 00 every 6 Center 7.5-325 mg (six) per tablet hours as needed for Pain. Max Daily Amount: 4 tablets HYDROcodone Yes 1{tbl} Take [address] -acetaminop 3-23 tablet by [facility] ([facility]CO 00:00: mouth Medica l 7.5-325) 00 every 6 Center 7.5-325 mg (six) per tablet hours as needed for Pain. Max Daily Amount: 4 tablets BuPROPion BuPROPion Yes Chandrakant 1 tablet Common HCl ER HCl ER 9-17 [facility] (Smoking (Smoking 00:00: morning - [facility] Det[facility] Det) [facility] Hydrocodone Hydrocodone Yes Chandrakant 1 tablet Common -Acetaminop -Acetaminop Jay as needed [facility] Xanax Xanax Yes Chandrakant 1 tablet Common [facility] Zofran Zofran Yes Chandrakant 1 tablet Commo n [facility] Immunizations Ordered Filled Date Status Comments Source Immunization Name Immunization Name Influenza Virus 2022-10-08 Completed Universit y of Vaccine - Whole 00:00:00 [facility] Influenza Virus 2022-10-08 Completed Universit y of Vaccine - Whole 00:00:00 [facility] Influenza Virus 2022-10-08 Completed Universit y of Vaccine - Whole 00:00:00 [facility] Influenza Virus 2022-10-08 Completed [facility]it y of Vaccine - Whole 00:00:00 [facility] Influenza Virus 2022-10-08 Completed Universit y of Vaccine - Whole 00:00:00 [facility] Influenza Virus 2022-10-08 Completed [facility]it y of Vaccine - Whole 00:00:00 [facility] Influenza Virus 2022-10-08 Completed [facility]it y of Vaccine - Whole 00:00:00 [facility] Influenza Virus 2022-10-08 Completed Universit y of Vaccine - Whole 00:00:00 [facility] Influenza Virus 2022-10-08 Completed [facility]it y of Vaccine - Whole 00:00:00 [facility] Influenza Virus 2022-10-08 Completed [facility]it y of Vaccine - Whole 00:00:00 [facility] Influenza Virus 2022-10-08 Completed [facility]it y of Vaccine - Whole 00:00:00 [facility] Influenza Virus 2022-10-08 Completed [facility]it y of Vaccine - Whole 00:00:00 [facility] Influenza Virus 2022-10-08 Completed [facility]it y of Vaccine - Whole 00:00:00 [facility] Influenza Virus 2022-10-08 Completed [facility]it y of Vaccine - Whole 00:00:00 [facility] Influenza Virus 2022-10-08 Completed [facility]it y of Vaccine - Whole 00:00:00 [facility] Influenza Virus 2022-10-08 Completed Universit y of Vaccine - Whole 00:00:00 [facility] Influenza Virus 2022-10-08 Completed Universit y of Vaccine - Whole 00:00:00 [facility] Influenza Virus 2022-10-08 Completed Universit y of Vaccine - Whole 00:00:00 [facility] Influenza Virus 2022-10-08 Completed Universit y of Vaccine - Whole 00:00:00 [facility] Influenza Virus 2022-10-08 Completed Universit y of Vaccine - Whole 00:00:00 [facility] Influenza Virus 2022-10-08 Completed [facility]it y of Vaccine - Whole 00:00:00 [facility] Influenza Virus 2022-10-08 Completed Universit y of Vaccine - Whole 00:00:00 [facility] Influenza Virus 2022-10-08 Completed [facility]it y of Vaccine - Whole 00:00:00 [facility] Influenza Virus 2022-10-08 Completed Universit y of Vaccine - Whole 00:00:00 [facility] Pneumococcal 20 2022-08-28 Completed Universit y of Conjugate, PCV20 00:00:00 [facility] dical (Prevnar 20) Branch SARS-COV-2 COVID-19 2022-08-28 Completed Unive rsity of [facility]TONI[facility]SU[facility] Branch BIVALENT 0.3ML, IM, (PFIZER ARROYO TOP) Pneumococcal 20 2022-08-28 Completed Universit y of Conjugate, PCV20 00:00:00 [facility] dical (Prevnar 20) Branch SARS-COV-2 COVID-19 2022-08-28 Completed Unive rsity of ANTONI-SUCROSE 00:00:00 [place] [facility] VACCINE 12 YRS+, Branch BIVALENT 0.3ML, IM, (PFIZER ARROYO TOP) Pneumococcal 20 2022-08-28 Completed Universit y of Conjugate, PCV20 00:00:00 [facility] dical (Prevnar 20) Branch SARS-COV-2 COVID-19 2022-08-28 Completed Unive rsity of ANTONI-SUCROSE 00:00:00 [place] [facility] VACCINE 12 YRS+, Branch BIVALENT 0.3ML, IM, (PFIZER ARROYO TOP) Pneumococcal 20 2022-08-28 Completed Universit y of Conjugate, PCV20 00:00:00 [facility] dical (Prevnar 20) Branch SARS-COV-2 COVID-19 2022-08-28 [...] Completed Universit y of Conjugate, PCV20 00:00:00 [place] [facility] (Prevnar 20) Branch SARS-COV-2 COVID-19 2022-08-28 Completed Unive rsity of ANTONI-SUCROSE 00:00:00 [place] [facility] VACCINE 12 YRS+, Branch BIVALENT 0.3ML, IM, (PFIZER ARROYO TOP) Pneumococcal 20 2022-08-28 Completed Universit y of Conjugate, PCV20 00:00:00 [place] [facility] (Prevnar 20) Branch SARS-COV-2 COVID-19 2022-08-28 Completed Unive rsity of ANTONI-SUCROSE 00:00:00 [place] [facility] VACCINE 12 YRS+, Branch BIVALENT 0.3ML, IM, (PFIZER ARROYO TOP) Pneumococcal 20 2022-08-28 Completed Universit y of Conjugate, PCV20 00:00:00 [place] [facility] (Prevnar 20) Branch SARS-COV-2 COVID-19 2022-08-28 Completed Unive rsity of ANTONI-SUCROSE 00:00:00 [place] [facility] VACCINE 12 YRS+, Branch BIVALENT 0.3ML, IM, (PFIZER ARROYO TOP) SARS-COV-2 COVID-19 2020-09-20 Completed Unive rsity of ADI/J&J VACCINE 00:00:00 [facility] SARS-COV-2 COVID-19 2020-09-20 Completed Unive rsity of ADI/J&J VACCINE 00:00:00 [facility] SARS-COV-2 COVID-19 2020-09-20 Completed Unive rsity of ADI/J&J VACCINE 00:00:00 [facility] SARS-COV-2 COVID-19 2020-09-20 Completed Unive rsity of ADI/J&J VACCINE 00:00:00 [facility] SARS-COV-2 COVID-19 2020-09-20 Completed Unive rsity of ADI/J&J VACCINE 00:00:00 [facility] SARS-COV-2 COVID-19 2020-09-20 Completed Unive rsity of ADI/J&J VACCINE 00:00:00 [facility] SARS-COV-2 COVID-19 2020-09-20 Completed Unive rsity of ADI/J&J VACCINE 00:00:00 [facility] SARS-COV-2 COVID-19 2020-09-20 Completed Unive rsity of ADI/J&J VACCINE 00:00:00 [facility] SARS-COV-2 COVID-19 2020-09-20 Completed Unive rsity of ADI/J&J VACCINE 00:00:00 [facility] SARS-COV-2 COVID-19 2020-09-20 Completed Unive rsity of ADI/J&J VACCINE 00:00:00 [facility] SARS-COV-2 COVID-19 2020-09-20 Completed Unive rsity of ADI/J&J VACCINE 00:00:00 [facility] SARS-COV-2 COVID-19 2020-09-20 Completed Unive rsity of ADI/J&J VACCINE 00:00:00 [facility] SARS-COV-2 COVID-19 2020-09-20 Completed Unive rsity of ADI/J&J VACCINE 00:00:00 [facility] SARS-COV-2 COVID-19 2020-09-20 Completed Unive rsity of ADI/J&J VACCINE 00:00:00 [facility] SARS-COV-2 COVID-19 2020-09-20 Completed Unive rsity of ADI/J&J VACCINE 00:00:00 [facility] SARS-COV-2 COVID-19 2020-09-20 Completed Unive rsity of ADI/J&J VACCINE 00:00:00 [facility] SARS-COV-2 COVID-19 2020-09-20 Completed Unive rsity of ADI/J&J VACCINE 00:00:00 [facility] SARS-COV-2 COVID-19 2020-09-20 Completed Unive rsity of ADI/J&J VACCINE 00:00:00 [facility] SARS-COV-2 COVID-19 2020-09-20 Completed Unive rsity of ADI/J&J VACCINE 00:00:00 [facility] SARS-COV-2 COVID-19 2020-09-20 Completed Unive rsity of ADI/J&J VACCINE 00:00:00 [facility] SARS-COV-2 COVID-19 2020-09-20 Completed Unive rsity of ADI/J&J VACCINE 00:00:00 [facility] SARS-COV-2 COVID-19 2020-09-20 Completed Unive rsity of ADI/J&J VACCINE 00:00:00 [facility] SARS-COV-2 COVID-19 2020-09-20 Completed Unive rsity of ADI/J&J VACCINE 00:00:00 [facility] SARS-COV-2 COVID-19 2020-09-20 Completed Unive rsity of ADI/J&J VACCINE 00:00:00 [facility] SARS-COV-2 COVID-19 2020-09-20 Completed Unive rsity of ADI/J&J VACCINE 00:00:00 [facility] SARS-COV-2 COVID-19 2020-09-20 Completed Unive rsity of ADI/J&J VACCINE 00:00:00 [facility] SARS-COV-2 COVID-19 2020-09-20 Completed Unive rsity of ADI/J&J VACCINE 00:00:00 [facility] SARS-COV-2 COVID-19 2020-09-20 Completed Unive rsity of ADI/J&J VACCINE 00:00:00 [facility] SARS-COV-2 COVID-19 2020-09-20 Completed Unive rsity of ADI/J&J VACCINE 00:00:00 [facility] SARS-COV-2 COVID-19 2020-09-20 Completed Unive rsity of ADI/J&J VACCINE 00:00:00 [facility] SARS-COV-2 COVID-19 2020-09-20 Completed Unive rsity of ADI/J&J VACCINE 00:00:00 [facility] SARS-COV-2 COVID-19 2020-09-20 Completed Unive rsity of ADI/J&J VACCINE 00:00:00 [facility] SARS-COV-2 COVID-19 2020-09-20 Completed Unive rsity of ADI/J&J VACCINE 00:00:00 [facility] SARS-COV-2 COVID-19 2020-09-20 Completed Unive rsity of ADI/J&J VACCINE 00:00:00 [facility] SARS-COV-2 COVID-19 2020-09-20 Completed Unive rsity of ADI/J&J VACCINE 00:00:00 [facility] SARS-COV-2 COVID-19 2020-09-20 Completed Unive rsity of ADI/J&J VACCINE 00:00:00 [facility] SARS-COV-2 COVID-19 2020-09-20 Completed Unive rsity of ADI/J&J VACCINE 00:00:00 [facility] SARS-COV-2 COVID-19 2020-09-20 Completed Unive rsity of ADI/J&J VACCINE 00:00:00 [facility] SARS-COV-2 COVID-19 2020-09-20 Completed Unive rsity of ADI/J&J VACCINE 00:00:00 [facility] SARS-COV-2 COVID-19 2020-09-20 Completed Unive rsity of ADI/J&J VACCINE 00:00:00 [facility] SARS-COV-2 COVID-19 2020-09-20 Completed Unive rsity of ADI/J&J VACCINE 00:00:00 [facility] SARS-COV-2 COVID-19 2020-09-20 Completed Unive rsity of ADI/J&J VACCINE 00:00:00 [facility] SARS-COV-2 COVID-19 2020-09-20 Completed Unive rsity of ADI/J&J VACCINE 00:00:00 [facility] SARS-COV-2 COVID-19 2020-09-20 Completed Unive rsity of ADI/J&J VACCINE 00:00:00 [facility] SARS-COV-2 COVID-19 2020-09-20 Completed Unive rsity of ADI/J&J VACCINE 00:00:00 [facility] SARS-COV-2 COVID-19 2020-09-20 Completed Unive rsity of ADI/J&J VACCINE 00:00:00 [facility] SARS-COV-2 COVID-19 2020-09-20 Completed Unive rsity of ADI/J&J VACCINE 00:00:00 [facility] SARS-COV-2 COVID-19 2020-09-20 Completed Unive rsity of ADI/J&J VACCINE 00:00:00 [facility] SARS-COV-2 COVID-19 2020-09-20 Completed Unive rsity of ADI/J&J VACCINE 00:00:00 [facility] SARS-COV-2 COVID-19 2020-09-20 Completed Unive rsity of ADI/J&J VACCINE 00:00:00 [facility] SARS-COV-2 COVID-19 2020-09-20 Completed Unive rsity of ADI/J&J VACCINE 00:00:00 [facility] SARS-COV-2 COVID-19 2020-09-20 Completed Unive rsity of ADI/J&J VACCINE 00:00:00 [facility] SARS-COV-2 COVID-19 2020-09-20 Completed Unive rsity of ADI/J&J VACCINE 00:00:00 [facility] SARS-COV-2 COVID-19 2020-09-20 Completed Unive rsity of ADI/J&J VACCINE 00:00:00 [facility] SARS-COV-2 COVID-19 2020-09-20 Completed Unive rsity of ADI/J&J VACCINE 00:00:00 [facility] Influenza Virus 2020-01-11 Completed Universit y of Vaccine Quad .5 mL 00:00:00 [place] [facility] 6+ MO Branch Influenza Virus 2020-01-11 Completed Universit y of Vaccine Quad .5 mL 00:00:00 [place] [facility] IM 6+ MO Branch Influenza Virus 2020-01-11 Completed Universit y of Vaccine Quad .5 mL 00:00:00 [place] [facility] IM 6+ MO Branch Influenza Virus 2020-01-11 Completed Universit y of Vaccine Quad .5 mL 00:00:00 [place] [facility] IM 6+ MO Branch Influenza Virus 2020-01-11 Completed Universit y of Vaccine Quad .5 mL 00:00:00 [place] [facility] IM 6+ MO Branch Influenza Virus [...] y of Vaccine Quad .5 mL 00:00:00 [place] [facility] IM 6+ MO Branch Influenza Virus [...] 00:00:00 [place] [facility] IM 6+ MO Branch (FLUZONE/FLULAVAL/F LUARIX) Influenza Virus 2020-01-11 Completed Universit y of Vaccine Quad .5 mL 00:00:00 [place] [facility] IM 6+ MO Branch (FLUZONE/FLULAVAL/F LUARIX) Influenza Virus 2020-01-11 Completed Universit y of Vaccine Quad .5 mL 00:00:00 [place] [facility] IM 6+ MO Branch (FLUZONE/FLULAVAL/F LUARIX) Influenza Virus 2020-01-11 Completed Universit y of Vaccine Quad .5 mL 00:00:00 [place] [facility] IM 6+ MO Branch (FLUZONE/FLULAVAL/F LUARIX) Influenza Virus 2020-01-11 Completed Universit y of Vaccine Quad .5 mL 00:00:00 [place] [facility] IM 6+ MO Branch (FLUZONE/FLULAVAL/F LUARIX) Influenza Virus 2020-01-11 Completed Universit y of Vaccine Quad .5 mL 00:00:00 [place] [facility] IM 6+ MO Branch (FLUZONE/FLULAVAL/F LUARIX) Influenza Virus 2020-01-11 Completed Universit y of Vaccine Quad .5 mL 00:00:00 [place] [facility] IM 6+ MO Branch (FLUZONE/FLULAVAL/F LUARIX) Influenza Virus 2020-01-11 Completed Universit y of Vaccine Quad .5 mL 00:00:00 [place] [facility] IM 6+ MO Branch (FLUZONE/FLULAVAL/F LUARIX) Influenza Virus 2020-01-11 Completed Universit y of Vaccine Quad .5 mL 00:00:00 [facility] 6+ MO Branch (FLUZONE/FLULAVAL/F LUARIX) Influenza Virus 2020-01-11 Completed Universit y of Vaccine Quad .5 mL 00:00:00 [facility] [place] [facility] IM 6+ MO Branch (FLUZONE/FLULAVAL/F LUARIX) Influenza Virus 2020-01-11 Completed Universit y of Vaccine Quad .5 mL 00:00:00 [facility] 6+ MO Branch (FLUZONE/FLULAVAL/F LUARIX) TDAP (ADACEL) 2019-04-28 Completed University of VACCINE 00:00:00 [facility] TDAP (ADACEL) 2019-04-28 Completed University of VACCINE 00:00:00 [facility] TDAP (ADACEL) 2019-04-28 Completed University of VACCINE 00:00:00 [facility] TDAP (ADACEL) 2019-04-28 Completed University of VACCINE 00:00:00 [facility] [place] [facility] TDAP (ADACEL) 2019-04-28 Completed University of VACCINE 00:00:00 [facility] TDAP (ADACEL) 2019-04-28 Completed University of VACCINE 00:00:00 [place] [facility] TDAP (ADACEL) 2019-04-28 Completed University of VACCINE 00:00:00 [facility] [place] [facility] Branch TDAP (ADACEL) 2019-04-28 Completed University of VACCINE 00:00:00 [facility] [place] [facility] TDAP (ADACEL) 2019-04-28 Completed University of VACCINE 00:00:00 [facility] [place] [facility] TDAP (ADACEL) 2019-04-28 Completed University of VACCINE 00:00:00 [facility] TDAP (ADACEL) 2019-04-28 Completed University of VACCINE 00:00:00 [facility] [place] [facility] Branch TDAP (ADACEL) 2019-04-28 Completed University of VACCINE 00:00:00 [facility] [place] [facility] Branch TDAP (ADACEL) 2019-04-28 Completed University of VACCINE 00:00:00 [facility] [place] [facility] Branch TDAP (ADACEL) 2019-04-28 Completed University of VACCINE 00:00:00 [facility] [place] [facility] Branch TDAP (ADACEL) 2019-04-28 Completed University of VACCINE 00:00:00 [facility] [place] [facility] Branch TDAP (ADACEL) 2019-04-28 Completed University of VACCINE 00:00:00 [facility] [place] [facility] Branch TDAP (ADACEL) 2019-04-28 Completed University of VACCINE 00:00:00 [facility] [place] [facility] Branch TDAP (ADACEL) 2019-04-28 Completed University of VACCINE 00:00:00 [facility] [place] [facility] Branch TDAP (ADACEL) 2019-04-28 Completed University of VACCINE 00:00:00 [facility] [place] [facility] TDAP (ADACEL) 2019-04-28 Completed University of VACCINE 00:00:00 [facility] [place] [facility] TDAP (ADACEL) 2019-04-28 Completed University of VACCINE 00:00:00 [facility] [place] [facility] TDAP (ADACEL) 2019-04-28 Completed University of VACCINE 00:00:00 [place] [facility] TDAP (ADACEL) 2019-04-28 Completed University of VACCINE 00:00:00 [facility] TDAP (ADACEL) 2019-04-28 Completed University of VACCINE 00:00:00 [facility] [place] [facility] TDAP (ADACEL) 2019-04-28 Completed University of VACCINE 00:00:00 [facility] [place] [facility] TDAP (ADACEL) 2019-04-28 Completed University [...] (ADACEL) 2019-04-28 Completed University of VACCINE 00:00:00 [facility] TDAP (ADACEL) 2019-04-28 Completed University of VACCINE 00:00:00 [facility] TDAP (ADACEL) 2019-04-28 Completed University of VACCINE 00:00:00 [facility] TDAP (ADACEL) 2019-04-28 Completed University of VACCINE 00:00:00 [facility] TDAP (ADACEL) 2019-04-28 Completed University of VACCINE 00:00:00 [facility] TDAP (ADACEL) 2019-04-28 Completed University of VACCINE 00:00:00 [facility] TDAP (ADACEL) 2019-04-28 Completed University of VACCINE 00:00:00 [place] [facility] TDAP (ADACEL) 2019-04-28 Completed University of VACCINE 00:00:00 [facility] TDAP (ADACEL) 2019-04-28 Completed University of VACCINE 00:00:00 [facility] TDAP (ADACEL) 2019-04-28 Completed University of VACCINE 00:00:00 [place] [facility] TDAP (ADACEL) 2019-04-28 Completed University of VACCINE 00:00:00 [place] [facility] TDAP (ADACEL) 2019-04-28 Completed University of VACCINE 00:00:00 [place] [facility] TDAP (ADACEL) 2019-04-28 Completed University of VACCINE 00:00:00 [place] [facility] TDAP (ADACEL) 2019-04-28 Completed University of VACCINE 00:00:00 [facility] [place] [facility] TDAP (ADACEL) 2019-04-28 Completed University of VACCINE 00:00:00 [place] [facility] TDAP (ADACEL) 2019-04-28 Completed University of VACCINE 00:00:00 [place] [facility] TDAP (ADACEL) 2019-04-28 Completed University of VACCINE 00:00:00 [facility] TDAP (ADACEL) 2019-04-28 Completed University of VACCINE 00:00:00 [facility] TDAP (ADACEL) 2019-04-28 Completed University of VACCINE 00:00:00 [facility] TDAP (ADACEL) 2019-04-28 Completed University of VACCINE 00:00:00 [facility] TDAP (ADACEL) 2019-04-28 Completed University of VACCINE 00:00:00 [facility] TDAP (ADACEL) 2019-04-28 Completed University of VACCINE 00:00:00 [facility] TDAP (ADACEL) 2019-04-28 Completed University of VACCINE 00:00:00 [facility] TDAP (ADACEL) 2019-04-28 Completed University of VACCINE 00:00:00 [facility] TDAP (ADACEL) Unknown Completed University of VACCINE [facility] Influenza Virus Unknown Completed Universit y of Vaccine Quad .5 mL [facility] [place] [facility] IM 6+ MO Branch (FLUZONE/FLULAVAL/F LUARIX) SARS-COV-2 COVID-19 Unknown Completed Unive rsity of ADI/J&J VACCINE [facility] Pneumococcal 20 Unknown Completed Universit y of Conjugate, PCV20 [facility] dical (Prevnar 20) Branch SARS-COV-2 COVID-19 Unknown Completed Unive rsity of ANTONI-SUCROSE [place] [facility] VACCINE 12 YRS+, Branch BIVALENT 0.3ML, IM, (PFIZER ARROYO TOP) Influenza Virus Unknown Completed Universit y of Vaccine - Whole [facility] Vital Signs Vital Name Observation Time Observation Value Comments Source Systolic blood 2022-12-18 17:36:00 111 mm[Hg] Univer sity of pressure [facility] Diastolic blood 2022-12-18 17:36:00 65 mm[Hg] Unive rsity of pressure [facility] Heart rate 2022-12-18 17:36:00 67 /min [facility] Body height 2022-12-18 17:36:00 180.3 cm [facility] Body weight 2022-12-18 17:36:00 82.192 kg [facility] BMI 2022-12-18 17:36:00 25.27 kg/m2 [facility] Oxygen saturation in 2022-12-18 17:36:00 98 /min University of Arterial blood by [facility] Pulse oximetry Branch Respiratory rate 2022-11-30 12:40:00 18 /min Univ ersity of [facility] Oxygen saturation in 2022-11-30 12:40:00 96 /min University of Arterial blood by [facility] Pulse oximetry Branch Systolic blood 2022-11-30 12:39:00 114 mm[Hg] Univer sity of pressure [facility] Diastolic blood 2022-11-30 12:39:00 65 mm[Hg] Unive rsity of pressure [facility] Heart rate 2022-11-30 12:39:00 52 /min [facility] Body temperature 2022-11-30 12:39:00 36.22 Leda [facility] Body weight 2022-11-30 07:51:00 81.965 kg [facility] BMI 2022-11-30 07:51:00 25.20 kg/m2 [facility] Body height 2022-11-28 23:32:00 180.3 cm [facility] Systolic blood 2022-11-22 17:54:00 136 mm[Hg] Univer sity of pressure [facility] Diastolic blood 2022-11-22 17:54:00 85 mm[Hg] Unive rsity of pressure [facility] Heart rate 2022-11-22 17:54:00 90 /min [facility] Body temperature 2022-11-22 17:54:00 37.39 Leda [facility] Respiratory rate 2022-11-22 17:54:00 18 /min Univ ers[facility] Body height 2022-11-22 17:54:00 180.3 cm [facility] Body weight 2022-11-22 17:54:00 79.379 kg [facility] BMI 2022-11-22 17:54:00 24.41 kg/m2 [facility] Oxygen saturation in 2022-11-22 17:54:00 98 /min University of Arterial blood by [facility] Pulse oximetry Branch Systolic blood 2022-11-15 15:27:00 131 mm[Hg] [facility] Diastolic blood 2022-11-15 15:27:00 79 mm[Hg] Unive rsity [facility] Heart rate 2022-11-15 15:27:00 76 /min [facility] Body temperature 2022-11-15 15:27:00 36.28 Leda [facility] Body height 2022-11-15 15:27:00 152.4 cm [facility] Body weight 2022-11-15 15:27:00 82.192 kg [facility] BMI 2022-11-15 15:27:00 35.39 kg/m2 [facility] Oxygen saturation in 2022-11-15 15:27:00 98 /min [facility] Arterial blood by [facility] julieta Pulse oximetry Branch Systolic blood 2022-11-14 17:50:00 126 mm[Hg] Univer sity [facility] Diastolic blood 2022-11-14 17:50:00 79 mm[Hg] Unive rsity of [facility] Heart rate 2022-11-14 17:50:00 67 /min [facility] Body temperature 2022-11-14 17:50:00 36.89 Leda [facility] Respiratory rate 2022-11-14 17:50:00 20 /min [facility] Oxygen saturation in 2022-11-14 17:50:00 96 /min [facility] Arterial blood by [facility] Pulse oximetry Branch Body weight 2022-11-14 09:00:00 81.602 kg [facility] BMI 2022-11-14 09:00:00 35.13 kg/m2 [facility] Body height 2022-11-13 08:01:00 152.4 cm [facility] Systolic blood 2022-11-06 17:40:00 144 mm[Hg] [facility] Diastolic blood 2022-11-06 17:40:00 86 mm[Hg] [facility]ive [facility] Heart rate 2022-11-06 17:40:00 67 /min [facility] Body temperature 2022-11-06 17:40:00 36.78 Leda [facility] Respiratory rate 2022-11-06 17:40:00 14 /min [facility] Oxygen saturation in 2022-11-06 17:40:00 98 /min [facility] Arterial blood by [facility] Pulse oximetry Branch Body weight 2022-11-05 11:20:00 81.466 kg [facility] BMI 2022-11-05 11:20:00 35.08 kg/m2 [facility] Body height 2022-11-05 00:29:00 152.4 cm [facility] Systolic blood 2022-10-11 18:27:00 124 mm[Hg] [facility] Diastolic blood 2022-10-11 18:27:00 77 mm[Hg] Unive rs[facility] Heart rate 2022-10-11 18:27:00 98 /min [facility] Body height 2022-10-11 18:27:00 180.3 cm [facility] Body weight 2022-10-11 18:27:00 80.423 kg [facility] BMI 2022-10-11 18:27:00 24.73 kg/m2 [facility] Oxygen saturation in 2022-10-11 18:27:00 94 /min [facility] Arterial blood by [facility] Pulse oximetry Branch Systolic blood 2022-09-28 19:25:00 115 mm[Hg] [facility] Diastolic blood 2022-09-28 19:25:00 75 mm[Hg] [facility]ive rs[facility] Heart rate 2022-09-28 19:25:00 84 /min [facility] Body height 2022-09-28 19:25:00 180.3 cm [facility] Body weight 2022-09-28 19:25:00 83.144 kg [facility] BMI 2022-09-28 19:25:00 25.57 kg/m2 [facility] Oxygen saturation in 2022-09-28 19:25:00 97 /min [facility] Arterial blood by [facility] Pulse oximetry Branch Systolic blood 2022-08-28 20:41:00 129 mm[Hg] [facility] Diastolic blood 2022-08-28 20:41:00 75 mm[Hg] [facility] Heart rate 2022-08-28 20:41:00 84 /min [facility] Body temperature 2022-08-28 20:41:00 37.11 Leda [facility] Body height 2022-08-28 20:41:00 180.3 cm [facility] Body weight 2022-08-28 20:41:00 84.959 kg [facility] BMI 2022-08-28 20:41:00 26.12 kg/m2 [facility] Oxygen saturation in 2022-08-28 20:41:00 97 /min [facility] Arterial blood by [facility] Pulse oximetry Branch Systolic blood 2022-02-02 16:52:00 129 mm[Hg] [facility] Diastolic blood 2022-02-02 16:52:00 80 mm[Hg] [facility]ive [facility] Heart rate 2022-02-02 16:51:00 78 /min [facility] Body weight 2022-02-02 16:51:00 83.915 kg [facility] BMI 2022-02-02 16:51:00 25.80 kg/m2 [facility] Oxygen saturation in 2022-02-02 16:51:00 98 /min [facility] Arterial blood by [facility] Pulse oximetry Branch Systolic blood 2021-11-27 16:08:00 128 mm[Hg] [facility] Diastolic blood 2021-11-27 16:08:00 80 mm[Hg] [facility] Heart rate 2021-11-27 16:08:00 103 /min [facility] Body temperature 2021-11-27 16:08:00 37.17 Leda [facility] Body height 2021-11-27 16:08:00 180.3 cm [facility] Body weight 2021-11-27 16:08:00 78.019 kg [facility] BMI 2021-11-27 16:08:00 23.99 [facility]m2 [facility] O[facility] saturation in 2021-11-27 16:08:00 100 /min [facility] blood by [facility] Pulse oximetry Branch Procedures Procedure Date / Time Performing Clinician Source Performed MAGNESIUM 2022-11-29 12:13:00 Sara Vilchis [facility] COMP. METABOLIC PANEL 2022-11-29 12:13:00 Sara Vilchis [facility] ([id number]) Medical Branch LIPASE 2022-11-29 09:09:00 Sara Vilchis [facility] CBC WITH DIFF 2022-11-29 09:09:00 Sara Vilchis [facility] PROTHROMBIN TIME / INR 2022-11-29 09:09:00 Sara Vilchis [facility] ACTIVATED PARTIAL 2022-11-29 09:09:00 Sara Vilchis [facility] 2022-11-28 21:20:00 Tez Ram[facility]rez [facility] COMP. METABOLIC PANEL 2022-11-28 21:20:00 Tez Ramírez [facility] ([id number]) [facility] CBC WITH DIFF 2022-11-28 21:20:00 Tez Ram[facility]rez [facility] CONSENT/REFUSAL FOR 2022-11-28 20:55:04 Doctor Unassigned, No [facility] DIAGNOSIS AND TREATMENT Name Medical Branch LIPASE 2022-11-22 19:26:00 Singer [facility] COMP. METABOLIC PANEL 2022-11-22 19:26:00 Titus Marin [facility] ([id number]) [facility] CBC WITH DIFF 2022-11-22 19:26:00 Singer [facility] URINALYSIS 2022-11-22 19:20:00 Singer [facility] ASSIGNMENT OF BENEFITS 2022-11-22 18:54:27 Doctor Unassigned, No [facility] CONSENT/REFUSAL FOR 2022-11-22 17:42:28 Doctor Unassigned, No Un [facility] DIAGNOSIS AND TREATMENT Name Medical Branch BASIC METABOLIC PANEL 2022-11-14 10:21:00 Hailey Cardenas [facility] (NA, K, CL, CO2, GLUCOSE, Medica l Branch BUN, CREATININE, CA) US ABDOMEN COMPLETE 2022-11-13 09:37:37 Radu Treadwell [facility] CT ABDOMEN PELVIS WO 2022-11-13 03:29:30 Perla Guillaume [facility] CONTRAST Medical Branch LIPASE 2022-11-13 01:34:00 Markell [facility] HEPATIC FUNCTION PANEL 2022-11-13 01:34:[address] [facility] ([id number]) (ALB,T.PRO,BILI Medical Branch T,BU/BC,ALT,AST,ALK PHOS) BASIC METABOLIC PANEL 2022-11-13 01:34:[address] [facility] (NA, K, CL, CO2, GLUCOSE, Medica l Branch BUN, CREATININE, CA) CBC WITH DIFF 2022-11-13 01:34:00 Markell [facility] ASSIGNMENT OF BENEFITS 2022-11-13 01:18:15 Doctor Unassigned, No [facility] NOTICE OF PRIVACY 2022-11-12 23:36:23 Doctor Unassigned, No [facility] CONSENT/REFUSAL FOR 2022-11-12 23:36:07 Doctor Unassigned, No [facility] DIAGNOSIS AND TREATMENT Name Medical Branch LIPASE 2022-11-06 10:42:00 Lupis Soria [facility] Medical Branch MAGNESIUM 2022-11-06 10:42:00 Medina [facility] BASIC METABOLIC PANEL 2022-11-06 10:42:00 Lupis [facility] (NA, K, CL, CO2, GLUCOSE, Medica l Branch BUN, CREATININE, CA) CBC WITH DIFF 2022-11-06 10:42:00 Medina [facility] LIPID PANEL ([id number])(TOTAL 2022-11-05 11:25:00 Deric Santos [facility] CHOLESTEROL, Medical Branch TRIGLYCERIDES, HDL) CT ABDOMEN PELVIS WO 2022-11-04 18:25:16 Josh Hodge [facility] CONTRAST [facility] Branch HB ECG ROUTINE & RHYTHM 2022-11-04 17:55:58 Josh Hodge [facility] STRIP Medical Branch URINALYSIS 2022-11-04 17:52:00 Josh Hodge [facility] LIPASE 2022-11-04 17:50:00 Josh Hodge [facility] TROPONIN I 2022-11-04 17:50:00 Josh Hodge [facility] COMP. METABOLIC PANEL 2022-11-04 17:50:00 Josh Hodge [facility] ([id number]) Medical Branch ETHANOL 2022-11-04 17:50:00 Josh Hodge [facility] CBC WITH DIFF 2022-11-04 17:50:00 Josh Hodge [facility] CONSENT/REFUSAL FOR 2022-11-04 17:24:22 Doctor Unassigned, No [facility] CONSENT/REFUSAL FOR 2022-09-28 19:06:21 Doctor Unassigned, No [facility] CBC WITH DIFF 2022-08-28 21:49:00 Hua Justice [facility] SARS-COV-2 COVID-19 2022-08-28 21:43:24 Hua Justice [facility] ANTONI-SUCROSE VACCINE 12 Medical Branch YRS+, BIVALENT 0.3ML, IM, (PFIZER ARROYO TOP) PNEUMOCOCCAL 20 CONJUGATE 2022-08-28 21:43:00 Hua Justice Un [facility] (PREVNAR 20) VACCINE [facility] INSURANCE CORRESPONDENCE 2022-08-21 05:01:00 Doctor Unassigned, No [facility] Branch AUTHORIZATION FOR RELEASE 2021-11-27 05:01:00 Doctor Unassigned, No [facility] Encounters Start End Encounter Admission Attending Care Care Encounter Source Date/Time Date/Time Type Type Clinicians Facility Department ID 2021-01-31 Emergency [facility] [id number] Univers 04:31:31 [facility] 2021-01-30 Emergency [facility] [id number] Univers 12:18:18 [facility] 2021-01-30 Emergency [facility] [id number] Univers 09:17:48 [facility] 2021-01-30 Emergency [facility] [id number] Univers 08:18:41 [facility] 2021-01-30 Emergency [facility] [id number] Univers 04:52:11 [facility] 2021-01-28 Emergency [facility] [id number] Univers 18:24:20 [facility] 2021-01-28 Emergency [facility] [id number] Univers 04:33:22 [facility] 2021-01-28 Outpatient MILY [facility] [id number] Univers 04:31:08 BRODIE [facility] 2021-01-28 Emergency [facility] [id number] Univers 01:58:43 [facility] 2021-01-27 Emergency [facility] [id number] Univers 23:31:06 [facility] 2021-01-27 Emergency [facility] [id number] Univers 21:26:13 ity [facility] 2023-01-11 2023-01-11 Outpatient TOYA DILL [facility] [id number] Univers 14:00:00 14:00:00 TOYA GUNTER gautam [facility] 2022-12-18 2022-12-18 [employer] [facility], Ang - [facility] 1.2.840.1 [id number] Univers 14:00:00 14:15:00 Visit Hua Justice [facility] 350.1.13.10 [facility] 4.2.7.2.686 Real as SYED?BLEA [id number] [address] MEDICAL OFFICE BUILDING 2022-12-18 2022-12-18 Outpatient Sara JUSTICE [facility] [id number] Univers 13:00:00 13:10:24 HUA combs [facility] 2022-12-18 2022-12-18 Office [facility] 1.2.840.114 [id number] Univers 13:00:00 13:10:24 Visit Hua HEALTH 350.1.13.10 it y of [place] 4.2.7.2.686 Real as SYED?BLEA [id number] [address] OFFICE [facility] 2022-12-17 2022-12-17 Outpatient R TOYA GUNTER [facility] [id number] Univers 16:20:00 16:20:00 JOHN GUNTERINE garret [facility] 2022-12-17 2022-12-17 Telephone [facility] 1.2.633.072 [id number] Univers 00:00:00 00:00:00 Toya HEALTH 350.1.13.10 ity of [place] 4.2.7.2.686 Real as SYED?BLEA [id number] [address] OFFICE [facility] 2022-12-14 2022-12-14 Telephone [facility] 1.2.526.880 [id number] Univers 00:00:00 00:00:00 Hua HEALTH 350.1.13.10 it y of [place] 4.2.7.2.686 Real as SYED?BLEA [id number] [address] OFFICE [facility] 2022-12-12 2022-12-12 Outpatient R VINH [facility] [id number] Univers 13:30:00 13:30:00 HUA gautam [facility] 2022-12-06 2022-12-06 Telephone [facility] 1.2.537.544 [id number] Univers 00:00:00 00:00:00 Hua HEALTH 350.1.13.10 it y of [place] 4.2.7.2.686 Real as SYED?BLEA [id number] [address] MEDICAL OFFICE [facility] 2022-12-04 2022-12-04 Transition MANJINDER Francisco 1.2.840.114 [id number] Univers 00:00:00 00:00:00 of Care Anderson [place] 350.1.13.10 [place] [id number] [facility] 403 Branch 2022-12-04 2022-12-04 Telephone Vinh [facility] 1.2.248.330 [id number] Univers 00:00:00 00:00:00 Hua HEALTH 350.1.13.10 it y of [place] 4.2.7.2.686 Real as SYED?BLEA [id number] [address] MEDICAL OFFICE [facility] 2022-11-28 2022-11-30 Outpatient X [facility] [id number] Univers 16:10:00 11:07:00 DERIC combs [facility] 2022-11-28 2022-11-30 Emergency Tez Ramírez [facility] 1.2. 840.114 [id number] Univers 16:10:00 11:07:00 Deric Santos 350.1.13.10 ity of [place].2.[place] [id number] [facility] [address] 2022-11-22 2022-11-22 Emergency X SINGER [facility] ERT [id number] Univers 12:58:00 15:41:00 TITUS garret [facility] 2022-11-22 2022-11-22 Emergency [facility] 1.2.220.413 [id number] Univers 12:58:00 15:41:00 Titus CHAPMAN 350.1.13.10 i ty of [place] [facility] 4.2.7.2.686 [place] [id number] [facility] [address] 2022-11-16 2022-11-16 Telephone Lu [facility] 1.2.534.363 [id number] Univers 00:00:00 00:00:00 Toya HEALTH 350.1.13.10 ity of [place] 4.2.7.2.686 Real as SYED?BLEA [id number] Nv nidhi [address] 2022-11-15 2022-11-15 Outpatient R TOYA GUNTER [facility] [id number] Univers 10:20:00 11:30:24 TOYA GUNTER [facility] 2022-11-15 2022-11-15 Office [facility] 1.2.840.114 [id number] Univers 10:20:00 11:30:24 Visit Toya HEALTH 350.1.13.10 ity of [place] 4.2.7.2.686 Real as SYED?BLEA [id number] [address] MEDICAL OFFICE BUILDING 2022-11-15 2022-11-15 Transition MANJINDER Olivier 1.2.840.114 [id number] Univers 00:00:00 00:00:00 of Care Jenniffer MCCARTHYY 350.1.13.10 [place] [id number] [facility] [address] 2022-11-12 2022-11-14 Outpatient U [id number] Univers 18:51:00 16:49:00 RADU it of [facility] 2022-11-12 2022-11-14 Emergency Perla Guillaume [facility] 1.2.840.1 14 [id number] Univers 18:51:00 16:49:00 TreadwellJasonin [facility] 350.1.13.10 it[place].686 [place] [id number] [facility] 114 [address] ([facility]) 2022-11-12 2022-11-12 Orders Doctor CARY 1.2.840.114 [id number] Univers 00:00:00 00:00:00 Only Unassigned, SEAN 350.1.13.10 ity of [place] [facility] 4.2.7.2.686 Real as [id number] [facility] 009 Branch 2022-11-09 2022-11-09 Telephone Vinh [facility] 1.2.044.187 [id number] Univers 00:00:00 00:00:00 Hua HEALTH 350.1.13.10 it y of [place] 4.2.7.2.686 Real as SYED?BLEA [id number] [address] MEDICAL OFFICE [facility] 2022-11-07 2022-11-07 Transition MANJINDER Francisco 1.2.840.114 [id number] Univers 00:00:00 00:00:00 of Care Anderson [place] 350.1.13.10 [place] [id number] [facility] [address] 2022-11-07 2022-11-07 Patient Doctor CARY 1.2.840.114 [id number] Univers 00:00:00 00:00:00 Secure Msg Unassigned, SEAN 350.1.13.10 ity of [place] [facility] 4.2.7.2.686 Real as [id number] [facility] 019 Branch 2022-11-04 2022-11-06 Outpatient X [facility] [id number] Univers 12:36:00 13:55:00 DERIC combs [facility] 2022-11-04 2022-11-06 Emergency Josh Hodge [facility] 1.2.840.1 14 [id number] Univers 12:36:00 13:55:00 Deric Santos 350.1.13.10 ity of [place] [facility] 4.2.7.2.686 [place] [id number] [facility] [address] 2022-10-31 2022-10-31 Refs[facility]ie [facility] 1.2.840.114 [id number] Univers 00:00:00 00:00:00 Hua HEALTH 350.1.13.10 it y of [place] 4.2.7.2.686 Real as SYED?BLEA [id number] [address] MEDICAL OFFICE [facility] 2022-10-24 2022-10-24 Refsophie Shaffer [facility] 1.2.840.114 [id number] Univers 00:00:00 00:00:00 Lucy HEALTH 350.1.13.10 it y of [place] 4.2.7.2.686 Real as SYED?BLEA [id number] [address] OFFICE [facility] 2022-10-22 2022-10-22 [facility] 1.2.846.446 [id number] Univers 00:00:00 00:00:00 Toya HEALTH 350.1.13.10 ity of [place] 4.2.7.2.686 Real as SYED?BLEA [id number] Nv nidhi [address] MEDICAL OFFICE [facility] 2022-10-11 2022-10-11 Outpatient R TOYA GUNTER [facility] [id number] Univers 13:40:00 13:55:29 [facility]22-10-11 2022-10-11 Office [facility] 1.2.840.114 [id number] Univers 13:40:00 13:55:29 Visit [facility] 350.1.13.10 ity of [place] 4.2.7.2.686 Real as SYED?BLEA [id number] [address] OFFICE [facility] 2022-10-08 2022-10-08 Outpatient R [facility] [id number] Univers 13:00:00 13:00:00 ity [facility] 2022-10-04 2022-10-04 [facility] 1.2.840.114 [id number] Univers 00:00:00 00:00:00 [place] HEALTH 350.1.13.10 it y of [place] 4.2.7.2.686 Real as SYED?BLEA [id number] [address] OFFICE [facility] 2022-10-01 2022-10-01 Refill [facility] 1.2.840.114 [id number] Univers 00:00:00 00:00:00 [place] HEALTH 350.1.13.10 it y of [place] 4.2.7.2.686 Real as SYED?BLEA [id number] [address] MEDICAL OFFICE [facility] 2022-09-28 2022-09-28 Office [facility] 1.2.840.114 [id number] Univers 14:20:00 14:40:00 Visit [facility] 350.1.13.10 ity of [place] 4.2.7.2.686 Real as SYED?BLEA [id number] [address] OFFICE [facility] 2022-09-28 2022-09-28 Outpatient R TOYA GUNTER [facility] [id number] Univers 14:20:00 14:20:00 TOYA GUNTER ity of [facility] 2022-09-28 2022-09-28 Orders Doctor CARY 1.2.840.114 [id number] Univers 00:00:00 00:00:00 Only Unassigned, SEAN 350.1.13.10 ity of [place] [facility] 4.2.7.2.686 Real as [id number] [facility] [address] 2022-09-05 2022-09-05 Telephone Lu [facility] 1.2.976.981 [id number] Univers 00:00:00 00:00:00 [facility] 350.1.13.10 ity of [place] 4.2.7.2.686 Real as SYED?BLEA [id number] [facility] [address] MEDICAL OFFICE [facility] 2022-08-29 2022-08-29 Telephone Vinh [facility] 1.2.135.303 [id number] Univers 00:00:00 00:00:00 Hua HEALTH 350.1.13.10 it y of [place] 4.2.7.2.686 Real as SYED?BLEA [id number] [facility] [address] MEDICAL OFFICE [facility] 2022-08-29 2022-08-29 Pre Visit CARY Carroll 1.2.849.256 [id number] Univers 00:00:00 00:00:00 Outreach Jh ESTRADA 350.1.13.10 ity of HOSPITAL 4.2.7.2.686 Real as [id number] [facility] [address] 2022-08-28 2022-08-28 [employer] [facility], Ang - Db [facility] 1.2.840.1 14 [id number] Univers 16:45:00 17:00:00 Visit Unknown, Attending HEALTH 350.1.13.10 ity of [place] 4.2.7.2.686 Real as SYED?BLEA [id number] Nv nidhi HYATT [address] MEDICAL OFFICE [facility] 2022-08-28 2022-08-28 Outpatient R VINH SDLIZZETTE [facility] [id number] Univers 15:30:00 16:41:27 HUA combs [facility] 2022-08-28 2022-08-28 Office Vinh [facility] 1.2.840.114 [id number] Univers 15:30:00 16:41:27 Visit Hua HEALTH 350.1.13.10 it y of [place] 4.2.7.2.686 Real as SYED?BLEA [id number] [address] MEDICAL OFFICE [facility] 2022-08-21 2022-08-21 Orders Doctor CARY 1.2.840.114 [id number] Univers 00:00:00 00:00:00 Only Unassigned, SEAN 350.1.13.10 ity of [place] [facility] 4.2.7.2.686 Real as [id number] [address] 2022-07-30 2022-07-30 [facility]ill [facility] 1.2.840.114 [id number] Univers 00:00:00 00:00:00 Hua HEALTH 350.1.13.10 it y of [place] 4.2.7.2.686 Real as SYED?BLEA [id number] [address] MEDICAL OFFICE [facility] 2022-06-13 2022-06-13 Telephone [facility] [id number] Univers 00:00:00 00:00:00 Lucy HEALTH [id number] it y of [place] [id number] Real as SYED?BLEA [id number] [address] MEDICAL OFFICE [facility] 2022-05-29 2022-05-29 Outpatient R VINH [facility] [id number] Univers 11:00:00 11:00:00 HUA combs [facility] 2022-05-29 2022-05-29 Outpatient R VINH [facility] [id number] Univers 11:00:00 11:00:00 HUA combs [facility] 2022-05-15 2022-05-15 Outpatient R AKASH [facility] [id number] Univers 14:00:00 14:00:00 ATTENDING garret [facility] 2022-02-06 2022-02-06 [facility] [facility] [id number] Univers 15:14:07 23:59:00 CHETNA [facility] 2022-02-05 2022-02-05 Telephone [facility] 1.2.956.533 [id number] Univers 00:00:00 00:00:00 Hua HEALTH 350.1.13.10 it y of [place] 4.2.7.2.686 Real as SYED?BLEA [phone] Nv nidhi [address] OFFICE [facility] 2022-02-03 2022-02-03 Refill [facility] 1.2.840.114 [id number] Univers 00:00:00 00:00:00 [facility] 350.1.13.10 it y of [place] 4.2.7.2.686 Real as SYED?BLEA [phone] [facility] [address] OFFICE [facility] 2022-02-03 2022-02-03 Refill [facility] 1.2.840.114 [id number] Univers 00:00:00 00:00:00 [facility] 350.1.13.10 it y of [place] 4.2.7.2.686 Real as SYED?BLEA [id number] Nv nidhi [address] OFFICE [facility] 2022-02-02 2022-02-02 [employer] [facility], [facility] 1.2.840.1 14 [id number] Univers 12:00:00 12:15:00 Visit Lucy Shaffer [facility] 350.1.13 .10 ity of [place] 4.2.7.2.686 Real as SYED?BLEA [id number] [facility] OLENA [address] OFFICE [facility] 2022-02-02 2022-02-02 Outpatient R EVON [facility] [id number] Univers 11:30:00 12:07:03 CHETNA gautam [facility] 2022-02-02 2022-02-02 Office Evon [facility] 1.2.840.114 [id number] Univers 11:30:00 12:07:03 Visit [facility] 350.1.13.10 it y of [place] 4.2.7.2.686 Real as SYED?BLEA [id number] [address] OFFICE [facility] 2022-01-22 2022-01-22 Outpatient R BLAIR GALINDO [facility] 10 [id number] Univers 09:00:00 09:00:00 HEMA GALINDOTono serina ty [facility] 2022-01-08 2022-01-08 Outpatient R BLAIR GALINDO [facility] 10 [id number] Univers 10:30:00 10:30:00 JOSIE BLAIR serina ty [facility] 2022-01-08 2022-01-08 Refill [facility] 1.2.840.114 [id number] Univers 00:00:00 00:00:00 [facility] 350.1.13.10 it y of [place] 4.2.7.2.686 Real as SYED?BLEA [phone] [address] MEDICAL OFFICE [facility] 2021-11-27 2021-11-27 Outpatient [facility] [id number] Univers 11:00:00 11:50:48 HUA combs of [facility] 2021-11-27 2021-11-27 Office [facility] 1.2.840.114 [id number] Univers 11:00:00 11:50:48 Visit [facility] 350.1.13.10 it y of [place] 4.2.7.2.686 Real as SYED?BLEA [id number] [address] MEDICAL OFFICE [facility] 2021-11-27 2021-11-27 Outpatient [facility] [id number] Univers 11:00:00 11:50:48 HUA angiegautam [facility] 2021-11-27 2021-11-27 Orders Doctor TOWNSEND 1.2.840.114 [id number] Univers 00:00:00 00:00:00 Only Unassigned, SEAN 350.1.13.10 ity of [place] [facility] 4.2.7.2.686 Real as [id number] [address] 2021-11-24 2021-11-24 Telephone [facility] 1.2.840.114 [id number] Univers 00:00:00 00:00:00 Lucy HEALTH 350.1.13.10 it y of [place] 4.2.7.2.686 Real as SYED?BLEA [id number] [address] OFFICE [facility] 2021-11-08 2021-11-08 Outpatient R DIMITRIS [facility] [id number] Univers 10:30:00 10:30:00 HORTENSIA ity of [facility] 2021-10-27 2021-10-27 Telephone [facility] 1.2.840.114 [id number] Univers 00:00:00 00:00:00 Lucy HEALTH 350.1.13.10 it y of [place] 4.2.7.2.686 Real as SYED?BLEA [phone] [address] OFFICE [facility] 2021-09-13 2021-09-13 Telephone [facility] 1.2.840.114 [id number] Univers 00:00:00 00:00:00 Lucy HEALTH 350.1.13.10 it y of [place] 4.2.7.2.686 Real as SYED?BLEA [phone] [address] OFFICE [facility] 2021-08-14 2021-08-14 [facility] 1.2.840.114 [id number] Univers 00:00:00 00:00:00 Lucy HEALTH 350.1.13.10 it y of [place] 4.2.7.2.686 Real as SYED?BLEA [id number] [address] 2021-08-14 2021-08-14 [facility] 1.2.840.114 [id number] Univers 00:00:00 00:00:00 Wondiful A HEALTH 350.1.13.10 ity of [place] 4.2.7.2.686 Real as SYED?BLEA [id number] [address] OFFICE [facility] 2021-08-14 2021-08-14 [facility] 1.2.840.114 [id number] Univers 00:00:00 00:00:00 Wondiful A HEALTH 350.1.13.10 ity of [place] 4.2.7.2.686 Real as SYED?BLEA [id number] Nv nidhi NANCE [address] [facility] OFFICE [facility] 2021-08-11 2021-08-11 Telephone [facility] 1.2.840.114 [id number] Univers 00:00:00 00:00:00 [facility] 350.1.13.10 it y of [place] 4.2.7.2.686 Real as SYED?BLEA [id number] Nv nidhi NANCE [address] [place] [address] OFFICE [facility] 2021-08-10 2021-08-10 Telephone [facility] 1.2.840.114 [id number] Univers 00:00:00 00:00:00 [facility] 350.1.13.10 it y of [place] 4.2.7.2.686 Real as SYED?BLEA [phone] Nv nidhi NANCE [address] [place] [address] OFFICE [facility] 2021-08-09 2021-08-09 [employer] [facility], [facility] 1.2.840.1 14 [id number] Univers 13:30:00 13:37:44 Visit Danojosefdevyn Lucy [facility] 350.1.13 .10 ity of [place] 4.2.7.2.686 Real as SYED?BLEA [phone] Nv nidhi NANCE [address] [facility] OFFICE [facility] 2021-08-09 2021-08-09 Outpatient Sara SHAFFER [facility] [id number] Univers 13:00:00 13:29:43 LUCY combs [facility] 2021-08-09 2021-08-09 Office [facility] 1.2.840.114 [id number] Univers 13:00:00 13:15:00 Visit [facility] 350.1.13.10 it y of [place] 4.2.7.2.686 Real as SYED?BLEA [id number] Nv nidhi NANCE [address] [place] [address] OFFICE [facility] 2021-08-09 2021-08-09 Outpatient Sara SHAFFER [facility] [id number] Univers 13:00:00 13:00:00 LUCY combs [facility] 2021-07-11 2021-07-11 Outpatient [facility] [id number] Univers 13:30:00 14:00:44 LUCY gautam [facility] 2021-07-11 2021-07-11 Outpatient Sara [facility] [id number] Univers 13:30:00 14:00:44 LUCY gautam [facility] 2021-07-11 2021-07-11 Office [facility] 1.2.840.114 [id number] Univers 13:30:00 14:00:00 Visit Lucy HEALTH 350.1.13.10 it y of [place] 4.2.7.2.686 Real as SYED?BLEA [phone] [address] MEDICAL OFFICE [facility] 2021-07-11 2021-07-11 Outpatient Sara SHAFFER [facility] [id number] Univers 13:30:00 13:30:00 LUCY [facility] 2021-07-11 2021-07-11 Orders Doctor CARY 1.2.840.114 [id number] Univers 00:00:00 00:00:00 Only Unassigned, SEAN 350.1.13.10 ity of [place] [facility] 4.2.7.2.686 Real as [id number] [address] 2021-06-29 2021-06-29 Orders Doctor CARY 1.2.840.114 [id number] Univers 00:00:00 00:00:00 Only Unassigned, SEAN 350.1.13.10 ity of [place] [facility] 4.2.7.2.686 Real as [id number] [address] 2021-06-16 2021-06-16 [facility] 1.2.840.114 [id number] Univers 00:00:00 00:00:00 Wondiful A HEALTH 350.1.13.10 ity of [place] 4.2.7.2.686 Real as SYED?BLEA [id number] [address] MEDICAL OFFICE [facility] 2021-06-12 2021-06-13 Emergency X Taras US [facility] ERT [id number] Univers 20:06:00 02:41:00 ity [facility] 2021-06-12 2021-06-13 Emergency Taras Us [facility] 1.2.840.114 [id number] Univers 20:06:00 02:41:00 Mel CHAPMAN 350.1.13.10 i ty of [place] 4.2.7.2.686 [place] [facility] [id number] [facility] [address] 2021-06-12 2021-06-13 Emergency X Taras US [facility] ERT [id number] Univers 20:06:00 02:41:00 ity [facility] 2021-04-07 2021-04-07 Outpatient R BLAIR GALINDO [facility] [id number] Univers 13:00:00 13:00:00 BLAIR GALINDO i ty of [facility] 2021-03-23 2021-03-23 Outpatient R [facility] [id number] Univers 15:30:00 15:30:00 [facility] 2021-03-16 2021-03-16 Outpatient R [facility] [id number] Univers 15:30:00 15:30:00 [facility] 2021-03-03 2021-03-03 Outpatient [facility] [id number] Univers 08:30:00 08:30:00 YOSEF [facility] 2021-02-09 2021-02-09 Transition ErinGILBERTO wileyTono 1.2.840.114 [id number] Univers 00:00:00 00:00:00 of Care Sayra BADILLO 350.1.13.10 i ty of [place] 4.2.7.2.686 [facility] [id number] [facility] [address] 2021-02-05 2021-02-08 Outpatient X KIMO [facility] DEWEY [id number] Univers 10:43:00 17:37:00 ANASTASIA gautam [facility] 2021-02-05 2021-02-08 Emergency Lennox Crystal [facility] 1.2.840. 114 [id number] Univers 10:43:00 17:37:00 Anastasia Krishnan 350.1.13.10 ity of [facility] 4.2.7.2.686 [facility] [phone] [place] [address] [place] 2021-02-02 2021-02-02 Transition MANJINDER Francisco 1.2.840.114 [id number] Univers 00:00:00 00:00:00 of Care Anderson Steffanie BADILLO 350.1.13.10 ity of [place] 4.2.7.2.686 [place] [id number] [facility] [address] 2021-01-27 2021-02-01 Inpatient X MEDINA [facility] [id number] Univers 22:36:00 16:30:00 MOSHE combs [facility] 2021-01-27 2021-02-01 [facility] Urszula Baeza [facility] 1.2.840. 114 [id number] Univers 22:36:00 16:30:00 Encounter Moshe Haney 350.1.13.10 ity of [place] 4.2.7.2.686 [facility] [phone] [address] 2021-01-31 2021-01-31 Patient Fabiano [facility] 1.2.840.114 [id number] Univers 00:00:00 00:00:00 Outreach [facility] 350.1.13.10 i ty of [place] 4.2.7.2.686 Real as SYED?BLEA [id number] [address] MEDICAL OFFICE BUILDING 2021-01-21 2021-01-21 Emergency Singer [facility] 1.2.376.360 [id number] Univers 03:45:00 05:15:00 Titus Chapman 350.1.13.10 i ty of [place] 4.2.7.2.686 [facility] [phone] [address] 2021-01-21 2021-01-21 Emergency X [facility] ERT [id number] Univers 03:45:00 05:15:00 TITUS combs [facility] 2021-01-10 2021-01-10 Transition Manjinder [place] 1.2.840.114 [id number] Univers 00:00:00 00:00:00 of Care Sayra Duncan Badillo 350.1.13.10 i ty of [place] 4.2.7.2.686 [facility] [id number] [facility] [address] 2021-01-04 2021-01-08 Hospital Yefri Claudio [facility] 1.2.840.1 14 [id number] Univers 16:12:00 13:20:00 Encounter Radu Treadwell [facility] 350.1.13.10 ity of [place] 4.2.7.2.686 [facility] [phone] [address] ([facility]) 2021-01-04 2021-01-08 Inpatient X HERI [facility] DEWEY [id number] Univers 16:12:00 13:20:00 RADU angiegautam [facility] 2021-01-08 2021-01-08 Telephone Shelby Diaz [facility] 1.2.840.114 [id number] Univers 00:00:00 00:00:00 Health 350.1.13.10 it y of [place] [facility] 4.2.7.2.[address] [place] [phone] ([facility]) 2021-01-05 2021-01-05 Surgery Karthikeyan [facility] 1.2.840.114 [id number] Univers 13:15:00 14:36:00 Yosef SPECIALTY 350.1.13.10 ity of CARE 4.2.7.2.686 [facility] AT [phone] Nv nidhi DARNELL [address] [place] [address] 2021-01-04 2021-01-04 Emergency [facility] 1.2.341.059 [id number] Univers 12:49:00 15:28:00 Titus Chapman 350.1.13.10 i ty of [place] 4.2.7.2.686 [facility] [phone] [facility] 084 [place] 2020-12-23 2020-12-23 Transition Manjinder Pearce 1.2.840.114 [id number] Univers 00:00:00 00:00:00 of Care Debra Vega Badillo 350.1.13.10 i ty of [place] 4.2.7.2.686 [facility] [phone] [facility] [address] 2020-12-15 2020-12-22 Hospital Titus Marin [facility] 1.2.840.1 14 [id number] Univers 09:02:00 14:05:00 Encounter Deric Santos 350.1.13.10 ity of [place] 4.2.7.2.686 [facility] [id number] [address] 2020-12-15 2020-12-22 Inpatient X TOM [facility] DEWEY [id number] Univers 09:02:00 14:05:00 DERIC combs [facility] 2020-12-19 2020-12-19 Outpatient R [facility] [id number] Univers 16:00:00 16:00:00 itgautam [facility] 2020-12-15 2020-12-15 Outpatient [facility] [id number] Univers 14:30:00 14:30:00 WONDIFUL ity o f [facility] 2020-12-12 2020-12-12 Telephone [facility] 1.2.840.114 [id number] Univers 00:00:00 00:00:00 Wondiful A Health 350.1.13.10 ity of [place] 4.2.7.2.686 Real as Syed?Blea [phone] Nv israpam [address] Medical Office Building 2020-12-11 2020-12-11 Emergency [facility] ERT [id number] Univers 09:03:00 12:08:00 CATALINA combs [facility] 2020-12-11 2020-12-11 Emergency [facility] 1.2.840.114 [id number] Univers 09:03:00 12:08:00 Catalina Chapman 350.1.13.10 ity of [place] 4.2.7.2.686 [facility] [phone] [place] [address] [place] 2020-12-01 2020-12-01 Transition Manjinder Pearce 1.2.840.114 [id number] Univers 00:00:00 00:00:00 of Care Debra Badillo 350.1.13.10 i ty of [place] 4.2.7.2.686 [place] [id number] [facility] [address] 2020-11-23 2020-11-30 Hospital Malcolm Altman [facility] 1.2.840. 114 [id number] Univers 19:30:00 16:06:00 Encounter Moshe Haney Adela 350.1.13.10 ity of [place] 4.2.7.2.686 [place] [id number] [facility] [address] 2020-11-23 2020-11-30 Inpatient [facility] [id number] Univers 19:30:00 16:06:00 MALCOLM ity of [facility] 2020-11-23 2020-11-23 Orders Doctor CARY 1.2.840.114 [id number] Univers 00:00:00 00:00:00 Only Unassigned, SEAN 350.1.13.10 ity of [place] [facility] 4.2.7.2.686 Real as [id number] [facility] [address] 2020-11-08 2020-11-08 Refill [facility] 1.2.840.114 [id number] Univers 00:00:00 00:00:00 Wondiful A Health 350.1.13.10 ity of [place] 4.2.7.2.686 Real as Professio [phone] [address] Office Building One 2020-11-04 2020-11-04 Office Yuliana [facility] 1.2.840.114 [id number] Univers 10:43:14 11:27:21 Visit Wondiful A Health 350.1.13.10 ity of [place] 4.2.7.2.686 Real as Professio [id number] Nv dic[address] Office Building One 2020-11-04 2020-11-04 Outpatient R YULIANA [facility] [id number] Univers 10:45:00 10:45:00 WONDIFUL ity o f [facility] 2020-10-30 2020-10-31 Emergency [facility] 1.2.227.041 [id number] Univers 22:35:00 02:17:00 Urszula Chapman 350.1.13.10 ity of [place] 4.2.7.2.686 [place] [phone] [address] 2020-10-31 2020-10-31 Telephone [facility] 1.2.840.114 [id number] Univers 00:00:00 00:00:00 Wondiful A Health 350.1.13.10 ity of [place] 4.2.7.2.686 Real as Professio [id number] [address] One 2020-10-28 2020-10-28 Telephone [place], [facility] 1.2.840.114 [id number] Univers 00:00:00 00:00:00 Wondiful A Health 350.1.13.10 ity of [place] 4.2.7.2.686 Real as Professio [id number] [address] One 2020-10-18 2020-10-18 Emergency [place], [facility] 1.2.881.399 [id number] Univers 02:29:00 04:26:00 Titus Chapman 350.1.13.10 i ty of [place] 4.2.7.2.686 [facility] [id number] [address] 2020-10-18 2020-10-18 Tele[facility] 1.2.840.114 [id number] Univers 00:00:00 00:00:00 Wondiful A Health 350.1.13.10 ity of [place] 4.2.7.2.686 Real as Professio [phone] [address] One 2020-10-13 2020-10-13 Emergency Yarifl, [facility] 1.2.604.524 [id number] Univers 02:21:00 05:01:00 Urszula Chapman 350.1.13.10 ity of [place] 4.2.7.2.686 [place] [id number] [address] 2020-10-10 2020-10-10 [facility] 1.2.840.114 [id number] Univers 00:00:00 00:00:00 Wondiful A Health 350.1.13.10 ity of [place] 4.2.7.2.686 Real as Professio [id number] [address] Office [facility] One 2020-10-07 2020-10-07 Orders Doctor CARY 1.2.840.114 [id number] Univers 00:00:00 00:00:00 Only Unassigned, SEAN 350.1.13.10 ity of [place] [facility] 4.2.7.2.686 Real as [phone] [address] 2020-10-06 2020-10-06 Telephone [facility] 1.2.840.114 [id number] Univers 00:00:00 00:00:00 Wondiful A Health 350.1.13.10 ity of [place] 4.2.7.2.686 Real as Professio [id number] [address] Office [facility] One 2020-10-06 2020-10-06 Telephone Yuliana [facility] 1.2.840.114 [id number] Univers 00:00:00 00:00:00 Wondiful A Health 350.1.13.10 ity of [place] 4.2.7.2.686 Real as Professio [id number] [address] Office [facility] One 2020-10-03 2020-10-03 Office Yuliana [facility] 1.2.840.114 [id number] Univers 16:28:13 17:20:02 Visit Wondiful [facility] Health 350.1.13.10 ity of [place] 4.2.7.2.686 Real as Professio [phone] [address] Office Building One 2020-10-03 2020-10-03 Outpatient R YULIANA [facility] [id number] Univers 16:30:00 16:30:00 WONDIFUL ity o f [facility] 2020-09-30 2020-09-30 Telephone Yuliana [facility] 1.2.840.114 [id number] Univers 00:00:00 00:00:00 Wondiful A Health 350.1.13.10 ity of [place] 4.2.7.2.686 Real as Professio [phone] Nv dical [facility] 044 [place] Office [facility] 2020-09-28 2020-09-28 Emergency [facility] 1.2.712.301 [id number] 08:21:00 11:41:00 Lennox Chapman 350.1.13.10 [place] 4.2.7.2.686 [place] [phone] [facility] 2020-09-28 2020-09-28 Emergency [facility] 1.2.571.918 [id number] [facility] 08:21:00 11:41:00 Lennox [place] 350.1.13.10 i ty of [place] 4.2.7.2.686 [place] [id number] [address] 2020-09-27 2020-09-27 [employer] Cathleen, Tonia Lab Main [facility] 1.2.8 40.114 [id number] Univers 17:06:57 17:21:57 Visit Mike [place] 350.1.13.10 ity of [place] 4.2.7.2.686 [place] Profess[place] [phone] Nv dical [facility] 353 [facility] 2020-09-27 2020-09-27 Office [facility] 1.2.840.114 [id number] 16:25:25 16:55:20 Visit [facility] 350.1.13.10 [place] 4.2.7.2.686 Professio [phone] [address] 2020-09-27 2020-09-27 Office [facility] 1.2.840.114 [id number] [facility] 16:25:25 16:55:20 Visit [facility] 350.1.13.10 i ty of [place] 4.2.7.2.686 Real as Professio [id number] Nv dical nal 044 [place] Office [facility] 2020-09-27 2020-09-27 Outpatient R JEZ [facility] [id number] [facility] 16:30:00 16:30:00 MIKE adamsy o f [facility] 2020-09-26 2020-09-26 Transition Pearce, Shearn 1.2.840.114 [id number] Univers 00:00:00 00:00:00 of Care Debra Badillo 350.1.13.10 i ty of [place] 4.2.7.2.686 [place] [id number] [facility] [address] 2020-09-21 2020-09-24 [facility] Abeba Taras Mel [facility] 1.2.840.1 14 [id number] Univers 16:20:00 15:47:00 Encounter Deric Santos 350.1.13.10 ity of [place] 4.2.7.2.686 [place] [id number] [facility] [address] 2020-09-21 2020-09-24 Outpatient X TOM [facility] DEWEY [id number] Univers 16:20:00 15:47:00 DERIC combs [facility] 2020-09-22 2020-09-22 Outpatient Sara BARNARD [facility] [id number] Univers 14:00:00 14:00:00 CHETNA combs [facility] 2020-09-16 2020-09-16 Telephone Yuliana [facility] 1.2.840.114 [id number] Univers 00:00:00 00:00:00 Wondiful A Health 350.1.13.10 ity of [place] 4.2.7.2.686 Real as Professio [id number] [address] Office Building One 2020-09-13 2020-09-13 Orders Doctor CARY 1.2.840.114 [id number] Univers 00:00:00 00:00:00 Only Unassigned, SEAN 350.1.13.10 ity of [place] [facility] 4.2.7.2.686 Real as [phone] [facility] [address] 2020-09-06 2020-09-06 Refill Yuliana [facility] 1.2.840.114 [id number] Univers 00:00:00 00:00:00 Wondiful A Health 350.1.13.10 ity of [place] 4.2.7.2.686 Real as Professio [phone] [facility] nal [address] 2020-08-26 2020-08-28 [facility] Nyla Dixon [facility] 1 .2.840.114 [id number] Univers 09:07:00 11:38:00 Encounter Deric Santos [id number] ity of [place] [id number] [facility] [phone] [facility] [address] [place] 2020-08-26 2020-08-28 Inpatient X TOM [facility] DEWEY [id number] Univers 09:07:00 11:38:00 DERIC garret [facility] 2020-08-26 2020-08-28 Inpatient X TOM [facility] [id number] Univers 09:07:00 11:38:00 DERIC [facility] 2020-08-24 2020-08-24 Transition PearceGilbertotono 1.2.840.114 [id number] Univers 00:00:00 00:00:00 of Care Debra Badillo [id number] i ty of [place] [id number] [facility] [phone] [facility] [address] 2020-08-22 2020-08-23 Hospital Titus Marin [facility] 1.2.840.1 [id number] Univers 09:28:00 16:15:00 Encounter Anastasia Krishnan [id number] ity of [place] 4.2.7.2.686 [facility] [phone] [facility] [address] 2020-08-22 2020-08-23 Outpatient X KIMO [facility] DEWEY [id number] Univers 09:28:00 16:15:00 ANASTASIA combs [facility] 2020-07-12 2020-07-12 Outpatient R YULIANA [facility] [id number] Univers 13:00:00 13:00:00 WONDIFUL ity o f [facility] 2020-06-15 2020-06-15 Refsophie Bridges [facility] 1.2.840.114 [id number] Univers 00:00:00 00:00:00 Wondiful [facility] [id number] ity gregor [place] [id number] Real as Professio [phone] Nv dical nal [address] [place] [address] 2020-05-31 2020-05-31 Outpatient R EDMUND [facility] [id number] Univers 15:45:00 15:45:00 LUCY ity [facility] 2020-04-20 2020-04-20 Emergency [facility] 1.2.135.232 [id number] Univers 16:13:00 21:39:00 Kary Chapman 350.1.13.10 i [place] [phone] [facility] [address] [place] 2020-04-20 2020-04-20 Telephone Yuliana [facility] 1.2.840.114 [id number] Univers 00:00:00 00:00:00 Wondiful [facility] 350.1.13.10 ity of [place] 4.2.7.2.686 Real as Professio [phone] [address] Office [facility] One 2020-04-14 2020-04-14 [facility] [id number] Univers 10:00:00 10:00:00 KARISHMA [facility] 2020-04-04 2020-04-04 Outpatient R TEQUILA [facility] [id number] Univers 09:30:00 09:30:00 CINDY combs [facility] 2020-03-31 2020-03-31 Outpatient R DARINEL [facility] [id number] Univers 09:30:00 09:30:00 KARISHMA [facility] 2020-03-28 2020-03-28 Orders Doctor TOWNSEND 1.2.840.114 [id number] Univers 00:00:00 00:00:00 Only Unassigned, SEAN 350.1.13.10 ity of [place] [facility] 4.2.7.2.686 Real as [phone] [facility] [address] [place] 2020-03-23 2020-03-23 Outpatient Sara [facility] [id number] Univers 14:45:00 14:45:00 KARISHMA combs [facility] 2020-03-21 2020-03-21 [facility] 1.2.840.114 [id number] Univers 00:00:00 00:00:00 Wondiful [facility] 350.1.13.10 ity of [place] 4.2.7.2.686 Real as Professio [phone] [address] 2020-03-17 2020-03-17 [facility] [id number] Univers 09:15:00 09:15:00 KARISHMA ity of [facility] 2020-03-15 2020-03-15 [facility] 1.2.840.114 [id number] Univers 00:00:00 00:00:00 [facility] 350.1.13.10 ity of [place] 4.2.7.2.686 Real as Professio [phone] [address] 2020-03-09 2020-03-09 [facility] 1.2.840.114 [id number] Univers 00:00:00 00:00:00 [facility] 350.1.13.10 ity of [place] 4.2.7.2.686 Real as Professio [phone] [address] 2020-03-07 2020-03-07 [facility] 1.2.840.114 [id number] Univers 10:31:23 11:33:24 Visit [facility] 350.1.13.10 ity of [place] 4.2.7.2.686 Real as Professio [phone] [address] 2020-03-07 2020-03-07 [facility] 1.2.967.612 [id number] Univers 09:21:46 10:08:12 Visit Cindy Chapman 350.1.13.10 i ty [place] [phone] [facility] 188 [facility] 2020-03-07 2020-03-07 Outpatient R TEQUILA [facility] [id number] Univers 09:15:00 09:15:00 CINDY combs [facility] 2020-02-23 2020-02-23 [facility] [id number] Univers 09:00:00 09:00:00 ALEXIS combs [facility] 2020-02-18 2020-02-18 Transition Gilberto Morrisontono 1.2.840.114 [id number] Univers 00:00:00 00:00:00 of Care Keya Badillo 350.1.13.10 it y of [place] [phone] [address] 2020-02-17 2020-02-17 Outpatient [facility] [id number] Univers 00:00:00 00:00:00 ALEXIS combs [facility] 2020-02-17 2020-02-17 Outpatient [facility] [id number] Univers 00:00:00 00:00:00 ALEXIS combs [facility] 2020-02-17 2020-02-17 Transition Manjinder Morrison 1.2.840.114 [id number] Univers 00:00:00 00:00:00 of Care [place] 350.1.13.10 it y of [place] [phone] [address] 2020-02-09 2020-02-16 [facility] Kary Rush [facility] 1.2.840.1 14 [id number] Univers 16:05:00 17:18:00 Encounter Anastasia Krishnan 350.1.13.10 ity of [place] [phone] [address] 2020-02-09 2020-02-09 [employer] [facility], [facility] Fam Pob I [facility] 1.2. 840.114 [id number] Univers 15:44:03 16:04:03 Visit Chetna Barnard 350.1.13.10 ity of [place] 4.2.7.2.686 [facility] [phone] Nv dical [facility] [address] [place] Office Building One 2020-02-09 2020-02-09 Office Yuliana [facility] 1.2.840.114 [id number] Univers 15:16:59 15:50:02 Visit W[facility] 350.1.13.10 ity of [place] 4.2.7.2.686 Real as Professio [phone] Nv dical nal [address] Building One 2020-02-09 2020-02-09 Outpatient R YULIANA [facility] [id number] Univers 15:30:00 15:30:00 WONDIFUL ity o f [facility] 2020-02-04 2020-02-04 Transition Manjinder Morrison 1.2.840.114 [id number] Univers 00:00:00 00:00:00 of Care [place] Bad[place] 350.1.13.10 it y of [place] [phone] [facility] [address] [place] 2020-02-03 2020-02-03 Transition Manjinder Morrison 1.2.840.114 [id number] Univers 00:00:00 00:00:00 of Care Keya Bad[place] 350.1.13.10 it y of [place].2.[place] [phone] [facility] [address] [place] 2020-01-28 2020-02-02 [facility] Dangelo Carty 1.2.840.11 [id number] Univers 22:39:00 17:40:00 Encounter Eli Toney 350.1.13.10 ity of [facility] 4.2.7.2.6 86 Sandra Mcdonald [phone] [facility] [address] 2020-02-02 2020-02-02 Jorge BlackmangladysCARY 1.2.840.114 [id number] Univers 00:00:00 00:00:00 Management Alexis ESTRADA 350.1.13.10 ity of [facility] 4.2.7.2.686 Real as [phone] [facility] [address] 2020-02-01 2020-02-01 Anesthesia Kamille Varma [facility] 1.2.840 .114 [id number] Univers 11:11:00 11:46:00 Preston Murray ICAL 350.1.13.10 ity of [place] 4.2.7.2.686 Real as BLDG [phone] [facility] [address] [place] 2020-01-28 2020-01-28 Outpatient R YULIANA [facility] [id number] Univers 09:00:00 09:00:00 WONDIFUL ity o f [facility] 2020-01-28 2020-01-28 Telephone Yuliana [facility] 1.2.840.114 [id number] Univers 00:00:00 00:00:00 [facility]iful [facility] 350.1.13.10 ity of [place] 4.2.7.2.686 Real as [facility] [phone] Nv dical [facility] [address] [place] Office [facility] One 2020-01-26 2020-01-26 Office Ethel [facility] 1.2.561.621 [id number] Univers 08:27:31 09:20:57 Visit Alexis Mcrae Y HEALTH 350.1.13.10 ity of [place].2.[place] [phone] [address] 2020-01-26 2020-01-26 Outpatient R ETHEL [facility] [id number] Univers 09:00:00 09:00:00 RAWAN ity of [facility] 2020-01-21 2020-01-21 Transition Manjinder Francisco 1.2.840.114 [id number] Univers 00:00:00 00:00:00 of Care Anderson Badillo 350.1.13.10 ity of [place] [phone] [facility] [address] 2020-01-15 2020-01-20 Hospital Eligio Hammer [facility] 1.2.840.114 [id number] Univers 23:47:00 17:26:00 Encounter Eli Toney 350.1.13.10 ity of [place] [phone] [facility] [address] [place] 2020-01-15 2020-01-15 Orders Doctor CARY 1.2.840.114 [id number] Univers 00:00:00 00:00:00 Only Unassigned, SEAN 350.1.13.10 ity of [place] [facility] 4.2.7.2.686 Real as [phone] [facility] [address] 2020-01-12 2020-01-12 Transition Manjinder Francisco 1.2.840.114 [id number] Univers 00:00:00 00:00:00 of Care Anderson Badillo 350.1.13.10 ity of [place].2.[place] [phone] [facility] [address] 2020-01-05 2020-01-11 Hospital Lizet Sherwood [facility] 1.2.840.11 [id number] Univers 15:45:00 14:20:00 Encounter Maurice Chaudhary 350.1.13.10 ity of [place] [phone] [facility] [address] 2020-01-05 2020-01-05 Urgent Provider, [facility] 1.2.840.114 [id number] Univers 15:08:18 15:28:18 Care Chetna Barnard [facility] 350.1.13.10 ity of [place] 4.2.7.2.686 Real as Professio [phone] Nv dical nal [address] [place] Office Building One 2020-01-05 2020-01-05 Outpatient R EVON [facility] [id number] Univers 15:20:00 15:20:00 CHETNA ity of [facility] 2019-12-17 2019-12-17 [facility] 1.2.840.114 [id number] Univers 00:00:00 00:00:00 [facility] 350.1.13.10 it y of [place] 4.2.7.2.686 Real as Professio [phone] Nv dical nal [address] [place] Office Building One 2019-12-16 2019-12-16 [employer], Tonia Connolly I [facility] 1.2. 840.114 [id number] Univers 09:31:42 09:41:42 Visit Lucy Shaffer [facility] 350.1.13 .10 ity of [place] 4.2.7.2.686 Real as Professio [phone] [address] 2019-12-16 2019-12-16 Office Edmund [facility] 1.2.840.114 [id number] Univers 09:09:54 09:24:54 Visit Lucy Health 350.1.13.10 it y of [place] 4.2.7.2.686 Real as Professio [phone] [address] 2019-12-16 2019-12-16 Outpatient R EDMUND [facility] [id number] Univers 09:15:00 09:15:00 LUCY [facility] 2019-07-13 2019-07-13 Telephone [facility] 1.2.840.114 [id number] Univers 00:00:00 00:00:00 [facility] 350.1.13.10 ity of [place] 4.2.7.2.686 Real as Professio [phone] [address] 2019-06-29 2019-06-29 [facility] 1.2.840.114 [id number] Univers 00:00:00 00:00:00 [facility] 350.1.13.10 ity of [place] 4.2.7.2.686 Real as Professio [phone] [address] 2019-06-17 2019-06-17 Ancillary Rosa Diggs [facility] 1.2.840 .114 [id number] Univers 12:02:29 13:02:29 Visit Nidhi Jiang Health 350.1.13.10 ity of [place].2.[place] - [phone] [address] 2019-06-17 2019-06-17 Outpatient R APOLINAR [facility] [id number] Univers 13:00:00 13:00:00 NIDHI combs [facility] 2019-06-04 2019-06-05 Office Sami [facility] 1.2.840.114 [id number] Univers 14:36:18 15:59:44 Visit Maurizio [facility] 350.1.13.10 it y [place] - [phone] Med ical [facility] [address] [place] 2019-06-04 2019-06-04 Outpatient R [facility] [id number] Univers 15:00:00 15:00:00 MAURIZIO combs [facility] 2019-06-02 2019-06-02 Telephone [facility] 1.2.840.114 [id number] Univers 00:00:00 00:00:00 [facility] 350.1.13.10 ity of [place] 4.2.7.2.686 Real as Professio [phone] [address] Office [facility] 2019-05-22 2019-05-22 [facility] 1.2.840.114 [id number] Univers 00:00:00 00:00:00 [facility] 350.1.13.10 ity of [place] 4.2.7.2.686 Real as Professio [phone] [address] 2019-05-20 2019-05-20 [facility] 1.2.840.114 [id number] Univers 14:00:00 23:59:00 Encounter Maurizio Adela 350.1.13.10 ity of [place] 4.2.7.2.686 [facility] [phone] [address] 2019-05-20 2019-05-20 Outpatient R [facility] [id number] Univers 13:45:50 13:59:00 MAURIZIO combs [facility] 2019-05-20 2019-05-20 [facility] 1.2.840.114 [id number] Univers 13:45:00 13:59:00 Encounter Maurizio Gonzalezton 350.1.13.10 ity of [place] 4.2.7.2.686 [facility] [phone] [address] 2019-05-20 2019-05-20 Orders Doctor TOWNSEND 1.2.840.114 [id number] Univers 00:00:00 00:00:00 Only Unassigned, SEAN 350.1.13.10 ity of [place] [facility] 4.2.7.2.686 Real as [phone] [facility] [address] [place] 2019-05-18 2019-05-18 [facility] 1.2.840.114 [id number] Univers 14:09:00 23:59:00 Encounter Maurizio Adela 350.1.13.10 ity of [place] [phone] [facility] [address] [place] 2019-05-18 2019-05-18 [facility] 1.2.840.114 [id number] Univers 14:00:00 14:08:00 Encounter Maurizio Adela 350.1.13.10 ity of [place] [phone] [address] 2019-05-18 2019-05-18 Outpatient R [facility] [id number] Univers 00:00:00 14:08:00 MAURIZIO combs [facility] 2019-05-12 2019-05-12 Outpatient R VIDAL [facility] [id number] Univers 14:45:00 14:45:00 LEXIE combs [facility] 2019-05-12 2019-05-12 [employer] Cathleen, Tonia Lab Main [facility] 1.2.8 40.114 [id number] Univers 14:36:22 14:40:52 Visit Lexie Drake 350.1.13 .10 ity of [place] [phone] Nv dical [address] 2019-05-12 2019-05-12 Orders Doctor CARY 1.2.840.114 [id number] Univers 00:00:00 00:00:00 Only Unassigned, SEAN 350.1.13.10 ity of [place] [facility] 4.2.7.2.686 Real as [phone] [address] 2019-05-11 2019-05-11 CARY Tee 1.2.840.114 [id number] Univers 00:00:00 00:00:00 Management Cain ESTRADA 350.1.13.10 ity of [facility] 4.2.7.2.686 Real as [phone] [facility] [address] [place] 2019-05-11 2019-05-11 Tele[facility] 1.2.840.114 [id number] Univers 00:00:00 00:00:00 Wondiful A Health 350.1.13.10 ity of [place] 4.2.7.2.686 Real as Professio [phone] [address] Office Building One 2019-05-08 2019-05-08 [facility] 1.2.203.273 [id number] Univers 00:00:00 00:00:00 Maurizio Health 350.1.13.10 it y of [place].2.[place] - [phone] [address] 2019-05-07 2019-05-07 Office [facility] 1.2.840.114 [id number] Univers 15:15:37 18:23:09 Visit Maurizio Health 350.1.13.10 it y of [place] 4.2.7.2.686 [facility] - [phone] [address] 2019-05-07 2019-05-07 Outpatient R [facility] [id number] Univers 15:45:00 15:45:00 MAURIZIO ity of [facility] 2019-04-29 2019-04-29 Telephone [facility] 1.2.840.114 [id number] Univers 00:00:00 00:00:00 Wondiful A Health 350.1.13.10 ity of [place] 4.2.7.2.686 Real as Professio [phone] [address] Office [facility] 2019-04-29 2019-04-29 Orders Doctor CARY 1.2.840.114 [id number] Univers 00:00:00 00:00:00 Only Unassigned, SEAN 350.1.13.10 ity of [place] [facility] 4.2.7.2.686 Real as [phone] [facility] [address] [place] 2019-04-28 2019-04-28 [facility] [id number] Univers 16:00:00 16:46:38 WONDIFUL ity o f [facility] 2019-04-28 2019-04-28 Office Yuliana [facility] 1.2.840.114 [id number] Univers 15:48:42 16:46:38 Visit Pam Valiente [facility] 350.1.13.10 [place]Edwin 4.2.7.2.686 Real as Darek [phone] [address] Office Building One 2019-04-13 2019-04-13 Outpatient [facility] [id number] [facility] 14:30:00 14:56:12 WONDIFUL ity o f [facility] 2018-06-13 2018-06-13 Outpatient Noé [place] [id number] Common 13:53:00 13:53:[address] t [facility] [address] [facility] 2018-03-18 2018-03-18 Outpatient [facility] [place] [id number] Common 16:22:00 16:22:00 t [facility] [address] [facility] 2018-03-03 2018-03-03 Outpatient [facility] [place] [id number] Common 15:05:00 15:05:00 t [facility] [address] [facility] 2018-01-02 2018-01-02 Outpatient [facility] [place] [id number] Common 11:45:00 11:45:00 t [facility] [address] [facility] 2017-12-16 2017-12-16 Outpatient [facility] [place] [id number] Common 09:45:00 09:45:00 t [facility] [address] [facility] 2017-10-16 2017-10-16 Outpatient [facility] [place] [id number] Common 14:17:00 14:17:[address] [facility] 2017-10-15 2017-10-15 Outpatient [facility] [place] [id number] Common 11:31:00 11:31:[address] [facility] 2017-10-09 2017-10-09 Outpatient [facility] [place] [id number] Common 15:30:00 15:30:00 t [facility] [address] [facility] Results Test Description Test Time Test Comments Results Result Comments Source COMP. METABOLIC PANEL (93599) 2022-11-28 21:55:35 Test Item Value Reference Range Interpretation Comme nts NA (test code = 3468931671) 138 mmol/L 135-145 K (test code = 5779548781) 3.8 mmol/L 3.5-5.0 CL (test code = 9154351694) 102 mmol/L 98-108 CO2 TOTAL (test code = 3295707884) 26 mmol/L 23-31 AGAP (test code = 3525603433) 10 2-16 BUN (test code = 6304518055) 12 mg/dL 7-23 GLUCOSE (test code = 3678403438) 111 mg/dL 70-110 H CREATININE (test code = 0.59 mg/dL 0.60-1.25 L 2955073685) TOTAL BILI (test code = 1.2 mg/dL 0.1-1.1 H 8588625966) CALCIUM (test code = 1964835538) 9.8 mg/dL 8.6-10.6 T PROTEIN (test code = 2431132694) 8.0 g/dL 6.3-8.2 ALBUMIN (test code = 0761189839) 4.5 g/dL 3.5-5.0 ALK PHOS (test code = 7101126932) 115 U/L 34-122 ALTv (test code = 1742-6) 23 U/L 5-50 AST(SGOT) (test code = 9721258727) 31 U/L 13-40 eGFR (test code = 4883260455) 144.3 mL/min/1.73m2 BERYL (test code = BERYL) [...] tests). Lab Interpretation (test code = Abnormal 55464-6) [facility] Test Item Value Reference Range Interpretation Comments LIPASE (test code = 7710733786) 1473 U/L 0-220 H Lab Interpretation (test code = Abnormal 10228-7) [facility] WITH [id number] 21:44:10 Test Item Value Reference Range Interpretation Comments WBC (test code = 13.10 See_Comment H [Automated 2790-2) message] The system which generated this result transmit meng reference range : 4.20 - 10.70 10*3/?L. The reference range was not used to interpret this result as normal/abnormal . RBC (test code = 5.71 See_Comment H [Automated 133-8) message] The system which generated this result [...] RDW-SD (test code = 50.9 fL 38.5-51.6 92811-1) RDW-CV (test code = 14.6 % 12.1-15.4 788-0) PLT (test code = 288 See_Comment [Automated 777-3) message] The system which generated this result transmit meng reference range : 150 - 328 10*3/ ?L. The reference range was not u sed to interpret th is result as normal/abnormal . MPV (test code = 10.0 fL 9.8-13.0 55445-9) NRBC/100 WBC (test 0.0 See_Comment [Automat ed code = 4728333043) message] The system which generated this result transmit meng reference range : 0.0 - 10.0 /100 WBCs. The reference range was not used to interpret this result as normal/abnormal . NRBC x10^3 (test code See_Comment [Auto mated = 4271315014) message] The system which generated this result transmit meng reference range : 10*3/?L. The reference range was not used to interpret this result as normal/abnormal . GRAN MAT (NEUT) % 82.5 % (test code = 770-8) IMM GRAN % (test code 0.60 % = 3330131632) LYMPH % (test code = 7.6 % 736-9) MONO % (test code = 8.5 % 5905-5) EOS % (test code = 0.5 % 713-8) BASO % (test code = 0.3 % 706-2) GRAN MAT x10^3(ANC) 10.80 10*3/uL 1.99-6.95 H (test code = 9266193839) IMM GRAN x10^3 (test 0.08 10*3/uL 0.00-0.06 H code = 4124387009) LYMPH x10^3 (test code 1.00 10*3/uL 1.09-3.23 L = 731-0) MONO x10^3 (test code 1.11 10*3/uL 0.36-1.02 H = 742-7) EOS x10^3 (test code = 0.07 10*3/uL 0.06-0.53 711-2) BASO x10^3 (test code 0.04 10*3/uL 0.01-0.09 = 704-7) Lab Interpretation Abnormal (test code = 40717-0) [facility]. METABOLIC PANEL (77989)2022-11-22 19:59:50 Test Item Value Reference Range Interpretation Comments NA (test code = 140 mmol/L 135-145 0227342087) K (test code = 4.0 mmol/L 3.5-5.0 0278124817) CL (test code = 104 mmol/L 98-108 1856719671) CO2 TOTAL (test code = 27 mmol/L 23-31 3021876945) AGAP (test code = 9 2-16 7421063531) BUN (test code = 4 mg/dL 7-23 L 5151515360) GLUCOSE (test code = 94 mg/dL 70-110 3535387050) CREATININE (test code = 0.51 mg/dL 0.60-1.25 L 0589060378) TOTAL BILI (test code = 0.7 mg/dL 0.1-1.3 1469693880) CALCIUM (test code = 9.3 mg/dL 8.6-10.6 2035583355) T PROTEIN (test code = 7.5 g/dL 6.3-8.2 1101299091) ALBUMIN (test code = 4.3 g/dL 3.5-5.0 5153626815) ALK PHOS (test code = 113 U/L 34-122 8906302719) ALTv (test code = 21 U/L 5-50 1742-6) AST(SGOT) (test code = 30 U/L 13-40 8401059921) eGFR (test code = 170.7 mL/min/1.73m2 7367428934) BERYL (test code = BERYL) Association of [...] tests). Lab Interpretation Abnormal (test code = 14988-6) [facility] 19:59[facility]29 Test Item Value Reference Range Interpretation Comments LIPASE (test code = 9812649656) 475 U/L 0-220 H Lab Interpretation (test code = Abnormal 67301-4) [facility] [id number] 19:49:43 Test Item Value Reference Range Interpretation Comments WBC (test code = 8.68 See_Comment [Automated 1149-2) message] The sy stem which generated this result transmitted reference range : 4.20 - 10.70 10*3/?L. The reference range was not used to interpret this result as normal/abnormal . RBC (test code = 5.46 See_Comment [Automated 268-6) message] The sy stem which generated this [...] (test code = 52.1 fL 38.5-51.6 H 03319-1) RDW-CV (test code = 15.0 % 12.1-15.4 788-0) PLT (test code = 269 See_Comment [Automated 777-3) message] The sy stem which generated this result transmitted reference range : 150 - 328 10*3/ ?L. The reference r kevin was not used to interpret this result as normal/abnormal . MPV (test code = 9.6 fL 9.8-13.0 L 74976-2) NRBC/100 WBC (test 0.0 See_Comment [Automat ed code = 9006518305) message] The system which generated this result transmitted reference range : 0.0 - 10.0 /100 WBCs. The refer ence range was not u sed to interpret th is result as normal/abnormal . NRBC x10^3 (test code See_Comment [Auto mated = 7304578100) message] The s ystem which generated this result transmitted reference range : 10*3/?L. The reference range was not used to interpret this result as normal/abnormal . GRAN MAT (NEUT) % 75.7 % (test code = 770-8) IMM GRAN % (test code 0.50 % = [id number]) LYMPH % (test code = 12.6 % 736-9) MONO % (test code = 9.8 % 5905-5) EOS % (test code = 0.8 % 713-8) BASO % (test code = 0.6 % 706-2) GRAN MAT x10^3(ANC) 6.58 10*3/uL 1.99-6.95 (test code = [id number]) IMM GRAN x10^3 (test 0.04 10*3/uL 0.00-0.06 code = [id number]) LYMPH x10^3 (test code 1.09 10*3/uL 1.09-3.23 = 731-0) MONO x10^3 (test code 0.85 10*3/uL 0.36-1.02 = 742-7) EOS x10^3 (test code = 0.07 10*3/uL 0.06-0.53 711-2) BASO x10^3 (test code 0.05 10*3/uL 0.01-0.09 = 704-7) Lab Interpretation Abnormal (test code = 22617-7) [facility] METABOLIC PANEL (NA, K, CL, CO2, GLUCOSE, BUN, CREATININE, CA)2022-11-14 11:22:12 Test Item Value Reference Range Interpretation Comments NA (test code = 141 mmol/L 135-145 [id number]) K (test code = 3.9 mmol/L 3.5-5.0 6824566193) CL (test code = 108 mmol/L 98-108 7467012298) CO2 TOTAL (test code = 28 mmol/L 23-31 8041805930) AGAP (test code = 5 2-16 8942070405) BUN (test code = 4 mg/dL 7-23 L 3965449195) GLUCOSE (test code = 75 mg/dL 70-110 2745665525) CREATININE (test code = 0.48 mg/dL 0.60-1.25 L 4964918265) CALCIUM (test code = 7.2 mg/dL 8.6-10.6 L 8909655114) eGFR (test code = 183.0 mL/min/1.73m2 8390699424) BERYL (test code = BERYL) Association of [...] tests). Lab Interpretation Abnormal (test code = 94594-7) [facility] (ALB,T.PRO,BILI T,BU/BC,ALT,AST,ALK PHOS)2022-11-13 02:14:41 Test Item Value Reference Range Interpretation Comments TOTAL BILI (test code = 2237757374) 0.5 mg/dL 0.1-1.1 BILI UNCON (test code = 3282827830) 0.3 mg/dL 0.1-1.1 BILI CONJ (test code = 5310891944) 0.0 mg/dL 0.0-0.3 T PROTEIN (test code = 8038485469) 6.9 g/dL 6.3-8.2 ALBUMIN (test code = 8925563908) 3.9 g/dL 3.5-5.0 ALK PHOS (test code = 4572367706) 98 U/L 34-122 ALTv (test code = 1742-6) 17 U/L 5-50 AST(SGOT) (test code = 5137689530) 16 U/L 13-40 Lab Interpretation (test code = Normal 82991-9) [facility] Test Item Value Reference Range Interpretation Comments LIPASE (test code = 8455628969) 824 U/L 0-220 H Lab Interpretation (test code = Abnormal 72936-9) [facility] (NA, K, CL, CO2, GLUCOSE, BUN, CREATININE, CA)2022-11-13 02:14:21 Test Item Value Reference Range Interpretation Comments NA (test code = 141 mmol/L 135-145 9732676146) K (test code = 3.4 mmol/L 3.5-5.0 L 7339463653) CL (test code = 104 mmol/L 98-108 1756355782) CO2 TOTAL (test code = 24 mmol/L 23-31 0708581838) AGAP (test code = 13 2-16 3785335454) BUN (test code = 5 mg/dL 7-23 L 5716942185) GLUCOSE (test code = 100 mg/dL 70-110 8553228205) CREATININE (test code = 0.54 mg/dL 0.60-1.25 L 4243374936) CALCIUM (test code = 8.7 mg/dL 8.6-10.6 5630266186) eGFR (test code = 159.8 mL/min/1.73m2 8827262379) BERYL (test code = BERYL) Association of [...] tests). Lab Interpretation Abnormal (test code = 17164-3) [facility] WITH [id number] 02:02:59 Test Item Value Reference Range Interpretation Comments WBC (test code = 7.83 See_Comment [Automated 6690-2) message] The sy stem which generated this result transmitted reference range : 4.20 - 10.70 10*3/?L. The reference range was not used to interpret this result as normal/abnormal . RBC (test code = 4.80 See_Comment [Automated 789-8) message] The sy stem [...] (test code = 52.8 fL 38.5-51.6 H 14808-2) RDW-CV (test code = 14.6 % 12.1-15.4 788-0) PLT (test code = 243 See_Comment [Automated 777-3) message] The sy stem which generated this result transmitted reference range : 150 - 328 10*3/ ?L. The reference r kevin was not used to interpret this result as normal/abnormal . MPV (test code = 10.1 fL 9.8-13.0 84153-5) NRBC/100 WBC (test 0.0 See_Comment [Automat ed code = 5486382238) message] The system which generated this result transmitted reference range : 0.0 - 10.0 /100 WBCs. The refer ence range was not u sed to interpret th is result as normal/abnormal . NRBC x10^3 (test code See_Comment [Auto mated = 9695258770) message] The s ystem which generated this result transmitted reference range : 10*3/?L. The reference range was not used to interpret this result as normal/abnormal . GRAN MAT (NEUT) % 72.2 % (test code = 770-8) IMM GRAN % (test code 0.90 % = 2816134913) LYMPH % (test code = 14.7 % 736-9) MONO % (test code = 10.0 % 5905-5) EOS % (test code = 1.4 % 713-8) BASO % (test code = 0.8 % 706-2) GRAN MAT x10^3(ANC) 5.66 10*3/uL 1.99-6.95 (test code = 6149264168) IMM GRAN x10^3 (test 0.07 10*3/uL 0.00-0.06 H code = 8455335128) LYMPH x10^3 (test code 1.15 10*3/uL 1.09-3.23 = 731-0) MONO x10^3 (test code 0.78 10*3/uL 0.36-1.02 = 742-7) EOS x10^3 (test code = 0.11 10*3/uL 0.06-0.53 711-2) BASO x10^3 (test code 0.06 10*3/uL 0.01-0.09 = 704-7) Lab Interpretation Abnormal (test code = 62200-3) [facility] [id number] 16:09:41 Test Item Value Reference Range Interpretation Comments TROPONIN I (test code = 0.013 ng/mL <=0.034 3857483051) BERYL (test code = BERYL) Reference (Normal) [...] biotin. 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 METABOLIC PANEL (19563) 2022-11-04 18:25:59 Test Item Value Reference Range Interpretation Comments NA (test code = 135 mmol/L 135-145 0485039654) K (test code = 4.2 mmol/L 3.5-5.0 7127738471) CL (test code = 100 mmol/L 98-108 5643828235) CO2 TOTAL (test code = 26 mmol/L 23-31 7132409697) AGAP (test code = 9 2-16 6278376749) BUN (test code = 8 mg/dL 7-23 0634292665) GLUCOSE (test code = 126 mg/dL 70-110 H 1305977523) CREATININE (test code = 0.49 mg/dL 0.60-1.25 L 8994403800) TOTAL BILI (test code = 1.1 mg/dL 0.1-1.5 6992017760) CALCIUM (test code = 9.1 mg/dL 8.6-10.6 9483523248) T PROTEIN (test code = 7.6 g/dL 6.3-8.2 5387911708) ALBUMIN (test code = 4.1 g/dL 3.5-5.0 8299564524) ALK PHOS (test code = 113 U/L 34-122 0084505716) ALTv (test code = 21 U/L 5-50 1742-6) AST(SGOT) (test code = 41 U/L 13-40 H 9927213561) eGFR (test code = 178.7 mL/min/1.73m2 8945714554) BERYL (test code = BERYL) Association of [...] tests). Lab Interpretation Abnormal (test code = 94545-9) [facility]25[facility]18 Test Item Value Reference Range Interpretation Comments LIPASE (test code = 4238123926) 754 U/L 0-220 H Lab Interpretation (test code = Abnormal 17713-1) [facility] WITH [id number] 18:11:59 Test Item Value Reference Range Interpretation Comments WBC (test code = 10.86 See_Comment H [Automated 5460-2) message] The sy stem which generated this result transmitted reference range : 4.20 - 10.70 10*3/?L. The reference range was not used to interpret this result as normal/abnormal . RBC (test code = 5.22 See_Comment [Automated 588-8) message] The sy stem which generated this [...] (test code = 52.0 fL 38.5-51.6 H 89156-7) RDW-CV (test code = 14.9 % 12.1-15.4 788-0) PLT (test code = 256 See_Comment [Automated 777-3) message] The sy stem which generated this result transmitted reference range : 150 - 328 10*3/ ?L. The reference r kevin was not used to interpret this result as normal/abnormal . MPV (test code = 9.4 fL 9.8-13.0 L 03521-1) NRBC/100 WBC (test 0.0 See_Comment [Automat ed code = 3480096840) message] The system which generated this result transmitted reference range : 0.0 - 10.0 /100 WBCs. The refer ence range was not u sed to interpret th is result as normal/abnormal . NRBC x10^3 (test code See_Comment [Auto mated = 1289894579) message] The s ystem which generated this result transmitted reference range : 10*3/?L. The reference range was not used to interpret this result as normal/abnormal . GRAN MAT (NEUT) % 83.0 % (test code = 770-8) IMM GRAN % (test code 0.70 % = 3189371238) LYMPH % (test code = 8.0 % 736-9) MONO % (test code = 7.6 % 5905-5) EOS % (test code = 0.3 % 713-8) BASO % (test code = 0.4 % 706-2) GRAN MAT x10^3(ANC) 9.01 10*3/uL 1.99-6.95 H (test code = 4838213223) IMM GRAN x10^3 (test 0.08 10*3/uL 0.00-0.06 H code = 4114487568) LYMPH x10^3 (test code 0.87 10*3/uL 1.09-3.23 L = 731-0) MONO x10^3 (test code 0.83 10*3/uL 0.36-1.02 = 742-7) EOS x10^3 (test code = 0.03 10*3/uL 0.06-0.53 L 711-2) BASO x10^3 (test code 0.04 10*3/uL 0.01-0.09 = 704-7) Lab Interpretation Abnormal (test code = 53538-4) [facility] WITH [id number] 22:44:37 Test Item Value Reference Range Interpretation Comments WBC (test code = 10.83 See_Comment H [Automated 6890-2) message] The sy stem which generated this result transmitted reference range : 4.20 - 10.70 10*3/?L. The reference range was not used to interpret this result as normal/abnormal . RBC (test code = 5.03 See_Comment [Automated 139-8) message] The sy stem which generated this [...] (test code = 53.2 fL 38.5-51.6 H 17122-4) RDW-CV (test code = 15.3 % 12.1-15.4 788-0) PLT (test code = 293 See_Comment [Automated 777-3) message] The sy stem which generated this result transmitted reference range : 150 - 328 10*3/ ?L. The reference r kevin was not used to interpret this result as normal/abnormal . MPV (test code = 9.4 fL 9.8-13.0 L 91591-0) NRBC/100 WBC (test 0.0 See_Comment [Automat ed code = 3568812822) message] The system which generated this result transmitted reference range : 0.0 - 10.0 /100 WBCs. The refer ence range was not u sed to interpret th is result as normal/abnormal . NRBC x10^3 (test code See_Comment [Auto mated = 2475357852) message] The s ystem which generated this result transmitted reference range : 10*3/?L. The reference range was not used to interpret this result as normal/abnormal . GRAN MAT (NEUT) % 70.5 % (test code = 770-8) IMM GRAN % (test code 1.40 % = 7964869715) LYMPH % (test code = 16.8 % 736-9) MONO % (test code = 9.1 % 5905-5) EOS % (test code = 1.6 % 713-8) BASO % (test code = 0.6 % 706-2) GRAN MAT x10^3(ANC) 7.63 10*3/uL 1.99-6.95 H (test code = 8110243260) IMM GRAN x10^3 (test 0.15 10*3/uL 0.00-0.06 H code = 7475058335) LYMPH x10^3 (test code 1.82 10*3/uL 1.09-3.23 = 731-0) MONO x10^3 (test code 0.99 10*3/uL 0.36-1.02 = 742-7) EOS x10^3 (test code = 0.17 10*3/uL 0.06-0.53 711-2) BASO x10^3 (test code 0.07 10*3/uL 0.01-0.09 = 704-7) Lab Interpretation Abnormal (test code = 16971-5) [facility] WITH [id number] 22:44:37 Test Item Value Reference Range Interpretation [...] (test code = 53.2 fL 38.5-51.6 H 65938-6) RDW-CV (test code = 15.3 % 12.1-15.4 788-0) PLT (test code = 293 See_Comment [Automated 777-3) message] The sy stem which generated this result transmitted reference range : 150 - 328 10*3/ ?L. The reference r kevin was not used to interpret this result as normal/abnormal . MPV (test code = 9.4 fL 9.8-13.0 L 91301-0) NRBC/100 WBC (test 0.0 See_Comment [Automat ed code = 4192354315) message] The system which generated this result transmitted reference range : 0.0 - 10.0 /100 WBCs. The refer ence range was not u sed to interpret th is result as normal/abnormal . NRBC x10^3 (test code See_Comment [Auto mated = 7114766317) message] The s ystem which generated this result transmitted reference range : 10*3/?L. The reference range was not used to interpret this result as normal/abnormal . GRAN MAT (NEUT) % 70.5 % (test code = 770-8) IMM GRAN % (test code 1.40 % = 1902623993) LYMPH % (test code = 16.8 % 736-9) MONO % (test code = 9.1 % 5905-5) EOS % (test code = 1.6 % 713-8) BASO % (test code = 0.6 % 706-2) GRAN MAT x10^3(ANC) 7.63 10*3/uL 1.99-6.95 H (test code = 3193700989) IMM GRAN x10^3 (test 0.15 10*3/uL 0.00-0.06 H code = 2270916734) LYMPH x10^3 (test code 1.82 10*3/uL 1.09-3.23 = 731-0) MONO x10^3 (test code 0.99 10*3/uL 0.36-1.02 = 742-7) EOS x10^3 (test code = 0.17 10*3/uL 0.06-0.53 711-2) BASO x10^3 (test code 0.07 10*3/uL 0.01-0.09 = 704-7) Lab Interpretation Abnormal (test code = 27425-7) [facility] Test Item Value Reference Range Interpretation Comments CREATININE (BEAKER) 0.63 mg/dL 0.57-1.25 (test code = 358) EGFR (BEAKER) (test 136 mL/min/1.73 ESTIM ATED GFR IS code = 1092) sq m NOT ACCURATE CREATININE CLEARANCE IN PREDICTING GLOMERULAR FILTRATION RATE . ESTIMATED GFR I S NOT APPLICABLE FOR DIALYSIS PATIEN TS. WOUND CULTURE + GRAM [id number] 16:32:00 Test Item Value Reference Range Interpretation Comments CULTURE (BEAKER) (test No growth code = 1095) GRAM STAIN RESULT 2+ WBCs (BEAKER) (test code = 1123) GRAM STAIN RESULT 1+ gram positive cocci (BEAKER) (test code = in pairs 42945) GRAM STAIN RESULT <1+ gram variable rods (BEAKER) (test code = 17578) VANCOMYCIN LEVEL, [id number] 23:37:00 Test Item Value Reference Range Interpretation Comments VANCOMYCIN TROUGH (BEAKER) (test 7.5 ug/mL 10.0-20.0 L code = 522) FL, ESOPH, SWALLOW FUNCTION, WITH CINE OR [id number] 18:19:00Cervical esophagram with GASTROGAFFINReason for exam:->status post [...] time: 0.65 minutes. 46 images. Signed: Josias Beltran MDReport Verified Date/Time: 08/12/2018 18:19:29 Reading Location: [address] Consult Reading Room CBC W/PLT COUNT & AUTO [id number] 04:39:00 Test Item Value Reference Range Interpretation [...] (test code = 2801) TSH/FREE T4 IF [id number] 18:11:00 Test Item Value Reference Range Interpretation Comments THYROID STIMULATING HORMONE 0.75 uIU/mL 0.35-4.94 (BEAKER) (test code = 772) CBC W/PLT COUNT & AUTO [id number] 17:31:00 Test Item Value Reference Range Interpretation [...] PERCENT (BEAKER) (test code = 2801) TISSUE [id number] 10:26:00Surgical Pathology Report Case: [id number] Authorizing Provider: Jennifer Fraire MD Collected: 07/14/2018 1023 Ordering Location: [facility] PERI[facility] Received: 07/14/2018 1029 SERVICES Pathologist: Jackie Horne MD Specimens: A) - Soft Tissue, Other, [...] IDENTIFIED - PERINEURAL INVASION: NOT IDENTIFIED - RESECTIONMARGINS (ANTERIOR VALLECULAR MUCOSAL, RIGHT AND LEFT LATERAL PHARYNGEAL MUCOSAL, POSTERIOR CRICOID MUCOSAL, TRACHEOSTOMY SKIN, DISTAL TRACHEAL, RIGHT AND LEFT LATERAL SOFT TISSUE, AND ANTERIOR SOFT TISSUE) ALL NEGATIVE FOR CARCINOMA - SMALL PORTION OF THYROID TISSUE, NEGATIVE FOR CARCINOMAD. LYMPH NODE , LEFT LEVEL 2, DISSECTION: - TWO BENIGN LYMPH NODES (0/2) Signing Pathologist Direct Phone Line: [phone] signed by Jackie Hardy MD on 07/25/2018 at 10:26 AMThere is a detached piece of necrotic atypical squamous cells (section C18) involving left vocal cord. The focus measures 0.2 cmin greatest dimension. 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 The specimen is received fresh [...] face margin; FSC2 - posterior cricoid mucosal margin;FSC3 - right lateral pharyngeal mucosal margin; FSC4 [...] longitudinally and reveals no gross mass lesion. Wireless Sales Manager sections are submitted as follows: C6 - right soft tissue en face margin; C7 - left soft tissue en face margin; C8 - anterior soft tissue en face margin; C9 and C10 - skinmargin of tracheostomy; C11 through C25 - C11 through C13 - longitudinal sections of midline larynx;C14 through C16 and C17 through C19 - longitudinal sections of left larynx; C20 through C22 and C23 through C25 - longitudinal sections of right larynx; C26-C27 and C28-C29 - longitudinal sections of far right larynx.D. The specimen is received [...] squamous cells (section C18) in left vocal cord.Underlying tissue shows ulcer and granulation tissue. On C19, Allen-8 positivity confirms portion of thyroid tissue present. On C16, There is ulceration with underlying granulation tissue. Some atypical cells are noted in the soft tissue, favoring atypia related to radiation and chemo. The negativity ofthe P63 and AE1/AE3 confirms that no residual tumor cells, the atypical cells might be reactive fibroblasts.The interpretation of this case included the use of immunohistochemistry or special stains. Immunohistochemistry technical testing was performed at [facility], Pathology Laboratory where it was [...] clinical laboratory testing.CBC W/PLT COUNT & AUTO [id number] 09:34:00 Test Item Value Reference Range Interpretation [...] = 3438) Received comment: User comments: Slide comments:[id number] 05:40:00 Test Item Value Reference Range Interpretation Comments PHOSPHORUS (BEAKER) (test code = 4.8 mg/dL 2.3-4.7 H 604) [id number] 05:40:00 Test Item Value Reference Range Interpretation Comments MAGNESIUM (BEAKER) (test code = 2.1 mg/dL 1.6-2.6 627) BASIC METABOLIC [id number] 05:40:00 Test Item Value Reference Range Interpretation [...] PATIEN TS. CBC W/PLT COUNT & AUTO [id number] 11:50:00 Test Item Value Reference Range Interpretation [...] 0-5 epithelial cells (BEAKER) (test code = 24171) GRAM STAIN RESULT No organisms seen (BEAKER) (test code = 18655) [id number] 06:07:00 Test Item Value Reference Range Interpretation Comments PHOSPHORUS (BEAKER) (test code = 4.6 mg/dL 2.3-4.7 604) [id number] 06:07:00 Test Item Value Reference Range Interpretation Comments MAGNESIUM (BEAKER) (test code = 2.0 mg/dL 1.6-2.6 627) BASIC METABOLIC [id number] 06:07:00 Test Item Value Reference Range Interpretation [...] APPLICABLE FOR DIALYSIS PATIEN TS. VANCOMYCIN LEVEL, [id number] 23:12:00 Test Item Value Reference Range Interpretation Comments VANCOMYCIN TROUGH (BEAKER) (test 3.2 ug/mL 10.0-20.0 L code = 522) POCT-GLUCOSE [id number] 17:57:00 Test Item Value Reference Range Interpretation Comments POC-GLUCOSE METER 105 mg/dL 70-110 TESTED AT [facility] [address] (BEAKER) (test code = [place] 1538) [address] CBC W/PLT COUNT & AUTO [id number] 13:00:00 Test Item Value Reference Range Interpretation [...] 3438) Received comment: User comments: Slide comments:POCT-GLUCOSE [id number] 12:50:00 Test Item Value Reference Range Interpretation Comments POC-GLUCOSE METER 117 mg/dL 70-110 H TESTED AT [facility] [address] (BEAKER) (test code = [place] 1538) [address] [id number] 07:00:00 Test Item Value Reference Range Interpretation Comments PHOSPHORUS (BEAKER) (test code = 4.2 mg/dL 2.3-4.7 604) [id number] 07:00:00 Test Item Value Reference Range Interpretation Comments MAGNESIUM (BEAKER) (test code = 1.9 mg/dL 1.6-2.6 627) BASIC METABOLIC [id number] 07:00:00 Test Item Value Reference Range Interpretation [...] PATIEN TS. CBC W/PLT COUNT & AUTO [id number] 10:11:00 Test Item Value Reference Range Interpretation [...] = 3438) Received comment: User comments: Slide comments:[id number] 05:39:00 Test Item Value Reference Range Interpretation Comments PHOSPHORUS (BEAKER) (test code = 5.1 mg/dL 2.3-4.7 H 604) [id number] 05:39:00 Test Item Value Reference Range Interpretation Comments MAGNESIUM (BEAKER) (test code = 2.0 mg/dL 1.6-2.6 627) BASIC METABOLIC [id number] 05:39:00 Test Item Value Reference Range Interpretation [...] APPLICABLE FOR DIALYSIS PATIEN TS. VANCOMYCIN LEVEL, [id number] 23:38:00 Test Item Value Reference Range Interpretation Comments VANCOMYCIN TROUGH (BEAKER) (test 5.5 ug/mL 10.0-20.0 L code = 522) CBC W/PLT COUNT & AUTO [id number] 10:44:00 Test Item Value Reference Range Interpretation [...] = 3438) Received comment: User comments: Slide comments:[id number] 06:44:00 Test Item Value Reference Range Interpretation Comments MAGNESIUM (BEAKER) 2.1 mg/dL 1.6-2.6 Specimen slightly (test code = 627) hemolyzed [id number] 06:44:00 Test Item Value Reference Range Interpretation Comments PHOSPHORUS (BEAKER) 5.0 mg/dL 2.3-4.7 H Specimen slightly (test code = 604) hemolyzed BASIC METABOLIC [id number] 06:44:00 Test Item Value Reference Range Interpretation [...] S NOT APPLICABLE FOR DIALYSIS PATIEN TS. [id number] 06:06:00 Test Item Value Reference Range Interpretation [...] with mechanical heart valves.SPUTUM CULTURE + GRAM [id number] 14:44:00 Test Item Value Reference Range Interpretation Comments CULTURE (BEAKER) Oropharyngeal (test code = 1095) contamination, specimen rejected. Recollect requested. GRAM STAIN RESULT <1+ WBCs (BEAKER) (test code = 1123) GRAM STAIN RESULT >25 epithelial cells (BEAKER) (test code = 72493) GRAM STAIN RESULT <1+ gram positive rods (BEAKER) (test code = 65144) RAD, CHEST, 1 VIEW, NON [id number] 13:59:00Reason for exam:->leukocytosis in setting of recent laryngectomyShould [facility]?->YesFINAL REPORT INDICATION: leukocytosis in setting of recent laryngectomy COMPARISON:July 17 TECHNIQUE: Chest radiograph, single view, portable technique. FINDINGS / IMPRESSION: No pneumonia is demonstrated. Right base linear opacities represent subsegmental atelectasis. Tracheostomy tube and left low neck dissection noted. No pneumomediastinum or pneumothorax demonstrated. Cardiac and mediastinal contours unremarkable. Signed: Saray Gaviria MDReport Verified Date/Time: 07/19/2018 13:59:21 Reading Location: [address] Consult Reading Room URINALYSIS W/ REFLEX URINE [id number] 11:14:00 Test Item Value Reference Range Interpretation [...] 514) SOURCE(BEAKER) (test code = 2795) POCT-GLUCOSE [id number] 06:46:00 Test Item Value Reference Range Interpretation Comments POC-GLUCOSE METER 102 mg/dL 70-110 TESTED AT [facility] [address] (BEAKER) (test code = ALI[place] 1538) [address] [id number] 04:52:00 Test Item Value Reference Range Interpretation Comments PHOSPHORUS (BEAKER) (test code = 4.1 mg/dL 2.3-4.7 604) [id number] 04:52:00 Test Item Value Reference Range Interpretation Comments MAGNESIUM (BEAKER) (test code = 1.8 mg/dL 1.6-2.6 627) BASIC METABOLIC [id number] 04:52:00 Test Item Value Reference Range Interpretation [...] PATIEN TS. CBC W/PLT COUNT & AUTO [id number] 04:25:00 Test Item Value Reference Range Interpretation [...] H PERCENT (BEAKER) (test code = 2801) [id number] 04:11:00 Test Item Value Reference Range Interpretation Comments [facility] (test code = 15.8 seconds 11.7-14.7 H 759) INR ([facility]) (test code = 370) 1.2 <=5.9 PARTIAL THROMBOPLASTIN TIME 48.2 seconds 22.5-36.0 H (BEAKER) (test code = 760) RECOMMENDED COUMADIN/WARFARIN INR THERAPY RANGESSTANDARD DOSE: 2.0 - 3.0 Includes: PROPHYLAXIS for venous thrombosis, systemic embolization; TREATMENT for venous thrombosis and/or pulmonary embolus.HIGH RISK: Target INR is 2.5-3.5 for patients with mechanical heart valves.POCT-GLUCOSE [id number] 00:11:00 Test Item Value Reference Range Interpretation Comments POC-GLUCOSE METER 76 mg/dL 70-110 TESTED AT [place] [address] ([facility]) (test code = [facility] [address] 1538) POCT-GLUCOSE [id number] 17:53:00 Test Item Value Reference Range Interpretation Comments POC-GLUCOSE METER 94 mg/dL 70-110 TESTED AT [place] [address] ([facility]) (test code = [facility] [address] 1538) T4, [id number] 11:41:00 Test Item Value Reference Range Interpretation Comments FREE T4 ([facility]) (test code = 655) 0.90 ng/dL 0.70-1.48 POCT-GLUCOSE [id number] 11:35:00 Test Item Value Reference Range Interpretation Comments POC-GLUCOSE METER 103 mg/dL 70-110 TESTED AT [facility] [address] (BEAKER) (test code = [place] 1538) [address] TSH/FREE T4 IF [id number] 10:50:00 Test Item Value Reference Range Interpretation Comments THYROID STIMULATING HORMONE 14.67 uIU/mL 0.35-4.94 H (BEAKER) (test code = 772) POCT-GLUCOSE [id number] 06:42:00 Test Item Value Reference Range Interpretation Comments POC-GLUCOSE METER 111 mg/dL 70-110 H TESTED AT [facility] 67[address] (BEAKER) (test code = [place] 1538) [address] CBC W/PLT COUNT & AUTO [id number] 05:20:00 Test Item Value Reference Range Interpretation [...] H PERCENT (BEAKER) (test code = 2801) [id number] 05:00:00 Test Item Value Reference Range Interpretation Comments PHOSPHORUS (BEAKER) (test code = 5.2 mg/dL 2.3-4.7 H 604) [id number] 05:00:00 Test Item Value Reference Range Interpretation Comments MAGNESIUM (BEAKER) (test code = 2.0 mg/dL 1.6-2.6 627) BASIC METABOLIC [id number] 05:00:00 Test Item Value Reference Range Interpretation [...] S NOT APPLICABLE FOR DIALYSIS PATIEN TS. [id number] 04:55:00 Test Item Value Reference Range Interpretation [...] mechanical heart valves.CBC W/PLT COUNT & AUTO [id number] 08:47:00 Test Item Value Reference Range Interpretation [...] 3438) Received comment: User comments: Slide comments:POCT-GLUCOSE [id number] 06:41:00 Test Item Value Reference Range Interpretation Comments POC-GLUCOSE METER 115 mg/dL 70-110 H TESTED AT [facility] 6720 (BEAKER) (test code = ALIYA MASON 1538) [address] BASIC METABOLIC [id number] 04:53:00 Test Item Value Reference Range Interpretation [...] S NOT APPLICABLE FOR DIALYSIS PATIEN TS. [id number] 04:37:00 Test Item Value Reference Range Interpretation Comments PHOSPHORUS (BEAKER) (test code = 3.9 mg/dL 2.3-4.7 604) [id number] 04:37:00 Test Item Value Reference Range Interpretation Comments MAGNESIUM (BEAKER) (test code = 1.6 mg/dL 1.6-2.6 627) [id number] 04:37:00 Test Item Value Reference Range Interpretation Comments ALBUMIN (BEAKER) (test code = 1145) 3.2 g/dL 3.5-5.0 L [id number] 04:24:00 Test Item Value Reference Range Interpretation Comments PROTIME (BEAKER) (test code = 15.9 seconds 11.7-14.7 H 759) INR (BEAKER) (test code = 370) 1.2 <=5.9 PARTIAL THROMBOPLASTIN TIME 51.7 seconds 22.5-36.0 H ([facility]) (test code = 760) RECOMMENDED COUMADIN/WARFARIN INR THERAPY RANGESSTANDARD DOSE: 2.0 - 3.0 Includes: PROPHYLAXIS for venous thrombosis, systemic embolization; TREATMENT for venous thrombosis and/or pulmonary embolus.HIGH RISK: Target INR is 2.5-3.5 for patients with mechanical heart valves.RAD, CHEST, 1 VIEW, NON [id number] 03:56:00Reason for exam:->atelectasisShould this be performed at the bedside?->YesFINAL REPORT CLINICAL INDICATION: Support lines. Comparison: 07/16/2018 The cardiomediastinal contours are stable. The lung volumes remain low. Bibasilar parenchymal and pleural opacities are similar to previous. There is no pneumothorax. A tracheostomy tube is stable in position.A pigtail catheter overlies the left upper quadrant, probably a G-tube. Signed: Mayra Garcia MDReport Verified Date/Time: 07/17/2018 03:56:49 Reading Location: [address] Reading Room POCT-GLUCOSE [id number] 00:56:00 Test Item Value Reference Range Interpretation Comments POC-GLUCOSE METER 115 mg/dL 70-110 H TESTED AT [place] [address] ([facility]) (test code = GREGORYFAUSTO Sara [facility] 1538) [id number] POCT-GLUCOSE [id number] 18:10:00 Test Item Value Reference Range Interpretation Comments POC-GLUCOSE METER 116 mg/dL 70-110 H TESTED AT [place] [address] ([facility]) (test code = ALIYA Ruiz [facility] 1538) [address] POCT-GLUCOSE [id number] 13:10:00 Test Item Value Reference Range Interpretation Comments POC-GLUCOSE METER 115 mg/dL 70-110 H TESTED AT [place] [address] ([facility]) (test code = ALIYA Ruiz [facility] 1538) [address] RAD, CHEST, 1 VIEW, NON [id number] 08:20:00Reason for exam:- >atelectasisShould this be performed [...] noted. IMPRESSION: No significant change. Signed: Josias Beltran MDReport Verified Date/Time: 07/16/2018 08:20:57 Reading Location: [facility] C013X Ortho Consult Reading Room TROPONIN [id number] 08:03:00 Test Item Value Reference Range Interpretation [...] acute neurological disease, and persistent tachyarrhythmia.BLOOD GAS, [id number] 07:42:00 Test Item Value Reference Range Interpretation [...] (test code = 1819) 44.0 % POCT-GLUCOSE [id number] 06:03:00 Test Item Value Reference Range Interpretation Comments POC-GLUCOSE METER 120 mg/dL 70-110 H TESTED AT [facility] 6720 (BEAKER) (test code = ALIYA [place] 1538) [address] CBC W/PLT COUNT & AUTO [id number] 04:00:00 Test Item Value Reference Range Interpretation [...] 0-1 PERCENT (BEAKER) (test code = 2801) [id number] 03:38:00 Test Item Value Reference Range Interpretation Comments MAGNESIUM (BEAKER) 2.0 mg/dL 1.6-2.6 Specimen slightly (test code = 627) hemolyzed [id number] 03:38:00 Test Item Value Reference Range Interpretation Comments PHOSPHORUS (BEAKER) 3.6 mg/dL 2.3-4.7 Specimen slightly (test code = 604) hemolyzed BASIC METABOLIC [id number] 03:38:00 Test Item Value Reference Range Interpretation [...] S NOT APPLICABLE FOR DIALYSIS PATIEN TS. [id number] 03:38:00 Test Item Value Reference Range Interpretation Comments ALBUMIN (BEAKER) (test 3.9 g/dL 3.5-5.0 Speci men slightly code = 1145) hemolyzed [id number] 03:31:00 Test Item Value Reference Range Interpretation Comments PROTIME (BEAKER) (test code = 15.5 seconds 11.7-14.7 H 759) INR ([facility]) (test code = 370) 1.2 <=5.9 PARTIAL THROMBOPLASTIN TIME 34.5 seconds 22.5-36.0 ([facility]) (test code = 760) RECOMMENDED COUMADIN/WARFARIN INR THERAPY RANGESSTANDARD DOSE: 2.0 - 3.0 Includes: PROPHYLAXIS for venous thrombosis, systemic embolization; TREATMENT for venous thrombosis and/or pulmonary embolus.HIGH RISK: Target INR is 2.5-3.5 for patients with mechanical heart valves.POCT-GLUCOSE [id number] 23:39:00 Test Item Value Reference Range Interpretation Comments POC-GLUCOSE METER 121 mg/dL 70-110 H TESTED AT [place] [address] ([facility]) (test code = ALIYA [place]QUE[place] 1538) [address] POCT-GLUCOSE [id number] 18:25:00 Test Item Value Reference Range Interpretation Comments POC-GLUCOSE METER 112 mg/dL 70-110 H TESTED AT [place] [address] ([facility]) (test code = ALIYA Ruiz [facility] 1538) [address] T4, [id number] 12:56:00 Test Item Value Reference Range Interpretation Comments FREE T4 ([facility]) (test code = 655) 1.17 ng/dL 0.70-1.48 POCT-GLUCOSE [id number] 11:35:00 Test Item Value Reference Range Interpretation Comments POC-GLUCOSE METER 143 mg/dL 70-110 H TESTED AT [place] [address] ([facility]) (test code = ALIYA Ruiz [facility] 1538) [address] CBC W/PLT COUNT & AUTO [id number] 07:50:00 Test Item Value Reference Range Interpretation Comments WHITE BLOOD CELL COUNT ([facility]) 24.1 K/ L 3.5-10.5 H (test code = 775) RED BLOOD CELL COUNT ([facility]) 3.75 M/ L 4.63-6.08 L (test code = 761) HEMOGLOBIN ([facility]) (test code = 11.7 GM/DL 13.7-17.5 L 410) HEMATOCRIT ([facility]) (test code = 35.7 % 40.1-51.0 L 411) MEAN CORPUSCULAR VOLUME ([facility]) 95.2 fL 79.0-92.2 H (test code = [...] Stable contours. Additional findings: None. Signed: Maylin Wiggins MDReport Verified Date/Time: 07/15/2018 05:48:22 Reading Location: [address] Neuro Reading Room POCT-GLUCOSE METER 2018-07-15 05:47:00 Test Item Value Reference Range Interpretation Comments POC-GLUCOSE METER 177 mg/dL 70-110 H TESTED AT [facility] 6720 (BEAKER) (test code = ALIYA [place] 5732) [address] [id number] 04:29:00 Test Item Value Reference Range Interpretation Comments PHOSPHORUS (BEAKER) (test code = 2.3 mg/dL 2.3-4.7 604) [id number] 04:29:00 Test Item Value Reference Range Interpretation Comments MAGNESIUM (BEAKER) (test code = 1.7 mg/dL 1.6-2.6 627) BASIC METABOLIC [id number] 04:29:00 Test Item Value Reference Range Interpretation [...] S NOT APPLICABLE FOR DIALYSIS PATIEN TS. [id number] 04:29:00 Test Item Value Reference Range Interpretation Comments ALBUMIN (BEAKER) (test code = 1145) 3.8 g/dL 3.5-5.0 [id number] 04:22:00 Test Item Value Reference Range Interpretation [...] 2.5-3.5 for patients with mechanical heart valves.POCT-GLUCOSE [id number] 23:55:00 Test Item Value Reference Range Interpretation Comments POC-GLUCOSE METER 159 mg/dL 70-110 H TESTED AT [facility] 6720 (BEAKER) (test code = ALIYA [place] 1538) [address] [id number] 19:41:00 Test Item Value Reference Range Interpretation Comments THYROID STIMULATING HORMONE 6.82 uIU/mL 0.35-4.94 H (BEAKER) (test code = 772) [id number] 19:26:00 Test Item Value Reference Range Interpretation Comments PHOSPHORUS (BEAKER) (test code = 4.9 mg/dL 2.3-4.7 H 604) Postop labsPostop labsPostop labsPostop [id number] 19:26:00 Test Item Value Reference Range Interpretation Comments MAGNESIUM (BEAKER) (test code = 1.9 mg/dL 1.6-2.6 627) Postop labsPostop labsPostop labsPostop labsBASIC METABOLIC [id number] 19:26:00 Test Item Value Reference Range Interpretation [...] DIALYSIS PATIEN TS. Postop labsPostop labsPostop labsPostop [id number] 19:26:00 Test Item Value Reference Range Interpretation Comments ALBUMIN (BEAKER) (test code = 1145) 3.9 g/dL 3.5-5.0 Postop labsPostop labsPostop labsPostop [id number] 19:24:00 Test Item Value Reference Range Interpretation Comments PREALBUMIN (BEAKER) 17 mg/dL 14-45 Specimen slightly (test code = 586) hemolyzed PTH, [id number] 19:23:00 Test Item Value Reference Range Interpretation Comments PARATHYROID HORMONE INTACT 16.1 pg/mL 8.5-72.5 (BEAKER) (test code = 577) Postop LabsCBC W/PLT COUNT & AUTO [id number] 18:58:00 Test Item Value Reference Range Interpretation [...] (BEAKER) (test code = 2801) BLOOD GAS, [id number] 15:31:00 Test Item Value Reference Range Interpretation [...] 1819) 100.0 % HGB/HCT (H&H) - STAT [id number] 15:31:00 Test Item Value Reference Range Interpretation Comments HEMOGLOBIN (BEAKER) (test code = 11.0 g/dL 13.0-16.8 L 410) HEMATOCRIT (BEAKER) (test code = 32.0 % 40.0-50.0 L 411) GLUCOSE-STAT [id number] 15:30:00 Test Item Value Reference Range Interpretation Comments GLUCOSE RANDOM (BEAKER) (test code = 87 mg/dL 70-110 652) SODIUM NA-STAT [id number] 15:30:00 Test Item Value Reference Range Interpretation Comments SODIUM (BEAKER) (test code = 381) 137 meq/L 135-148 POTASSIUM-STAT [id number] 15:30:00 Test Item Value Reference Range Interpretation Comments POTASSIUM (BEAKER) (test code = 4.0 meq/L 3.6-5.5 379) ANG, INSERTION G TUBE, W/ [id number] 14:18:00Reason for exam:- >Gastrostomy tubeFINAL REPORT Fluoroscopic guided gastrostomy tube placement, 07/11/2018. Clinical History: Laryngeal cancer. Modality: Fluoroscopy. Head Bone Grinder: Jack Lima MD. Seconds Inspector:Dilip Vivas MD. Conscious sedation: 2.0 mg Versed, [...] After the tract was dilated, a 14 Kiswahili catheterwas placed into the stomach. The wire [...] Lima Verified Date/Time: 07/11/2018 14:18:50 Reading Location: [place] [id number] Angio Body Reading Room TSH/FREE T4 IF [id number] 13:24:00 Test Item Value Reference Range Interpretation Comments THYROID STIMULATING HORMONE 2.37 uIU/mL 0.35-4.94 (BEAKER) (test code = 772) RAD, CHEST, PA OR AP, 1 [id number] 11:03:00Reason for exam:->coughShould this be performed at the bedside?->NoFINAL REPORT AP chest HISTORY: Cough. COMPARISON: 06/17/2018. IMPRESSION: Tracheostomy tube present. Heart size normal. Lungs clear without effusion or pneumothorax. Intact skeleton. Signed: Ashok Whitaker Verified Date/Time: 07/10/2018 11:03:24 Reading Location: [address] Radiology Reading Room COMPREHENSIVE METABOLIC [id number] 10:52:00 Test Item Value Reference Range Interpretation [...] PATIEN TS. CBC W/PLT COUNT & AUTO [id number] 10:32:00 Test Item Value Reference Range Interpretation [...] H PERCENT (BEAKER) (test code = 2801) [id number] 10:30:00 Test Item Value Reference Range Interpretation [...] 2.5-3.5 for patients with mechanical heart valves.BLOOD [id number] 20:01:00 Test Item Value Reference Range Interpretation Comments CULTURE (BEAKER) (test No growth in 5 days code = 1095) BLOOD [id number] 20:01:00 Test Item Value Reference Range Interpretation Comments CULTURE (BEAKER) (test No growth in 5 days code = 1095) CBC W/PLT COUNT & AUTO [id number] 12:54:00 Test Item Value Reference Range Interpretation [...] Received comment: User comments: Slide comments:BASIC METABOLIC [id number] 06:44:00 Test Item Value Reference Range Interpretation [...] NOT APPLICABLE FOR DIALYSIS PATIEN TS. BLOOD [id number] 12:01:00 Test Item Value Reference Range Interpretation Comments CULTURE (BEAKER) (test No growth in 5 days code = 1095) CBC W/PLT COUNT & AUTO [id number] 11:06:00 Test Item Value Reference Range Interpretation [...] PLATELET CONCENTRATION Adequate (CELLAVISION)(BEAKER) (test code = 0778) Received comment: User comments: Slide comments:BASIC METABOLIC [id number] 08:11:00 Test Item Value Reference Range Interpretation [...] NOT APPLICABLE FOR DIALYSIS PATIEN TS. BLOOD [id number] 08:01:00 Test Item Value Reference Range Interpretation Comments CULTURE (BEAKER) (test No growth in 5 days code = 1095) BLOOD [id number] 02:00:00 Test Item Value Reference Range Interpretation Comments CULTURE (BEAKER) (test No growth in 5 days code = 1095) BLOOD [id number] 02:00:00 Test Item Value Reference Range Interpretation Comments CULTURE (BEAKER) (test No growth in 5 days code = 1095) CBC W/PLT COUNT & AUTO [id number] 15:32:00 Test Item Value Reference Range Interpretation [...] Received comment: User comments: Slide comments:BASIC METABOLIC [id number] 07:38:00 Test Item Value Reference Range Interpretation [...] PATIEN TS. CBC W/PLT COUNT & AUTO [id number] 12:37:00 Test Item Value Reference Range Interpretation [...] Received comment: User comments: Slide comments:BASIC METABOLIC [id number] 12:04:00 Test Item Value Reference Range Interpretation [...] APPLICABLE FOR DIALYSIS PATIEN TS. VANCOMYCIN LEVEL, [id number] 12:02:00 Test Item Value Reference Range Interpretation Comments VANCOMYCIN RANDOM (BEAKER) (test 1.3 ug/mL code = 523) Reference Range: No [id number] 12:00:00 Test Item Value Reference Range Interpretation Comments MAGNESIUM (BEAKER) (test code = 2.2 mg/dL 1.6-2.6 627) SPUTUM CULTURE + GRAM [id number] 11:45:00 Test Item Value Reference Range Interpretation [...] 15-20 epithelial (BEAKER) (test code cells = 409157) GRAM STAIN RESULT <1+ gram negative (BEAKER) (test code coccobacilli = 543983) GRAM STAIN RESULT <1+ gram positive (BEAKER) (test code cocci in pairs = 355511) GRAM STAIN RESULT <1+ yeast with (BEAKER) (test code pseudohyphae = 209265) GRAM STAIN RESULT 1+ gram variable (BEAKER) (test code rods = 925925) 1+ [facility]O DIFFERENTIAL 2018-06-17 [...] H PERCENT (BEAKER) (test code = 2801) [id number] 14:37:00 Test Item Value Reference Range Interpretation Comments PROCALCITONIN (BEAKER) (test code 0.08 ng/mL <0.05 H = 3036) SEPSIS RISK (ng/mL)Low: 0.05-0.50Intermediate: 0.51-2.00High: >=2.01LACTIC ACID, [id number] 13:43:00 Test Item Value Reference Range Interpretation Comments LACTATE BLOOD VENOUS 2.4 mmol/L 0.5-2.2 H Specime n slightly (2) (BEAKER) (test hemolyzed code = 2872) TISSUE [id number] 13:24:00Surgical Pathology Report Case: [id number] Authorizing Provider: Jennifer Fraire MD Collected: 06/09/2018 1735 Ordering Location: [address] Received: 06/10/2018 0811 Cardiovascular Pathologist: Jennifer Hull MD Specimen: Soft Tissue, Other, LEFT SUPRAGLOTTIC MASS LEFT SUPRAGLOTTIC MASS, LARYNGOSCOPIC BIOPSY: - ATYPICAL SQUAMOUS PROLIFERATION (SEE COMMENT) Signing Pathologist Direct Phone Line: [phone] signed by Jennifer Hull MD on 06/17/2018 at 1:24 PMThese are superficial fragments with hyperplasia, keratosis and dysplasia. Note is made of the history of chemoradiation. Ulceration, inflammation, atypical stromal cells and necrosis seen, may be due to the effect of chemoradiation. Immunohistochemical studies for AE1/AE3 and p53 confirm that theatypical cells in the stroma are likely reactive stromal cells. No invasive carcinoma is seen. The biopsy may not be help desk representative of the entirelesion; Clinical correlation is recommended.07390; 66703; 74748Qhpxoekfc mass Left subglottic massThe specimen is received in a fluidless container labeled with patient information and labeled "left supraglottic mass" consisting of four fragments of red softtissue ranging from 0.1 to 0.4 cm, submitted entirely A1. CG/pl PERFORMEDThe interpretation of this case included the use of immunohistochemistry or special stains. p53 and AE1/TI0Pvtqullqhnavnqcoirfk t echnical testing was performed at [facility], Pathology Laboratory where it was developed and its performance characteristics were determined. It has not been cleared or approved by the U.S. Food and Drug Administration. The FDA has determined that such clearance or approval is not necessary. The test is used for clinical purposes. It should not be regarded as investigational orfor research. This laboratory is certified under the Clinical Laboratory Improvement Amendments of 1988 (CLIA-88) as qualified to perform high complexity clinical laboratory testing.HERMELINDA GUO, SWALLOW FUNCTION, WITH CINE OR [id number] 12:08:00Reason for exam:->silent aspiration evaluationFINAL REPORT Modified [...] time: 0.4 minutes. One image. Signed: Josias Beltran MDReport Verified Date/Time: 06/17/2018 12:08:38 Reading Location: [address] OrthoConsult Reading Room [id number] 09:44:00 Test Item Value Reference Range Interpretation Comments MAGNESIUM (BEAKER) (test code = 1.9 mg/dL 1.6-2.6 627) [id number] 09:44:00 Test Item Value Reference Range Interpretation Comments PHOSPHORUS (BEAKER) (test code = 2.9 mg/dL 2.3-4.7 604) RAD, CHEST, 1 VIEW, NON [id number] 08:16:00Reason for exam:->SOBShould this be performed at the bedside?->YesFINAL REPORT Chest one view. Clinical history: SOB Comparison: June 16, 2018 Discussion: A frontal chest is provided. Cardiomediastinal contours are unchanged. Tracheostomy tube is in stable position. Unchanged patchy bibasilar airspace opacities. There is mild degree of interstitial prominence that may reflect edema. No pneumothorax or large effusion. Signed: Roger Avelareport Verified Date/Time: 06/17/2018 08:16:46 Reading Location: [facility] Radiology Reading Room BASIC METABOLIC [id number] 06:25:00 Test Item Value Reference Range Interpretation [...] APPLICABLE FOR DIALYSIS PATIEN TS. VANCOMYCIN LEVEL, [id number] 06:25:00 Test Item Value Reference Range Interpretation Comments VANCOMYCIN RANDOM (BEAKER) (test 9.6 ug/mL code = 523) Reference Range: No NormalsDraw 30 min prior to scheduled dose, HOLD if level > 20 mcg/mL, informMD.RESPIRATORY PANEL [id number] 12:23:00 Test Item Value Reference Range Interpretation [...] [facility] using the [employer]ear[employer] Movement CaptureArray Respiratory Panel. It is FDA cleared and has been verified and approved by the [facility] Molecular Diagnostics Laboratory for clinical use on nasal swab specimens. It is not FDA-cleared for use on bronchial wash/lavage samples. However, for this sample type, validation was performed and test characteristics were determined and approved, by [facility] [employer] laboratory for clinical use under the Clinical Laboratory Improvement Amendments (CLIA) of 1988 requirements. Therefore, FDA clearance isnot required. This laboratory is CLIA- certified and [employer] (CAP)-accredited to perform high complexity testing.CBC W/PLT COUNT & AUTO [id number] 11:27:00 Test Item Value Reference Range Interpretation [...] comments:CT, CHEST WITH IV CONTRAST- PE TEST [id number] 09:53:00Worsening hypoxia s/o diagnosis and excision of [...] MDReport Verified Date/Time: 06/16/2018 09:53:01 Reading Location: [facility] Diagnostic Imaging Reading Room - [place] [address] RAD, CHEST, 1 VIEW, NON [id number] 07:36:00Reason for exam:->recent pneumothorax, new trachShould this [...] MDReport Verified Date/Time: 06/16/2018 07:36:27 Reading Location: [facility] Radiology Reading Room BASIC METABOLIC [id number] 05:45:00 Test Item Value Reference Range Interpretation [...] S NOT APPLICABLE FOR DIALYSIS PATIEN TS. [id number] 18:12:00 Test Item Value Reference Range Interpretation Comments MAGNESIUM (BEAKER) 2.0 mg/dL 1.6-2.6 Specimen slightly (test code = 627) hemolyzed BASIC METABOLIC [id number] 18:12:00 Test Item Value Reference Range Interpretation [...] PATIEN TS. RAD, CHEST, 1 VIEW, NON [id number] 13:18:00Reason for exam:->recent pneumothorax, new trachShould this [...] MDReport Verified Date/Time: 06/15/2018 13:18:45 Reading Location: [address] Neuro Reading Room BLOOD GAS, [id number] 11:41:00 Test Item Value Reference Range Interpretation [...] hour post initaition of vent support \\R\\1015TROPONIN [id number] 09:49:00 Test Item Value Reference Range Interpretation [...] 66 pg/mL 0-100 (test code = 700) [id number] 09:29:00 Test Item Value Reference Range Interpretation [...] exclusion of thrombosis is within 95-100% range. [id number] 09:12:00 Test Item Value Reference Range Interpretation Comments FIBRINOGEN LEVEL (BEAKER) (test 621 mg/dl 225-434 H code = 658) [id number] 09:10:00 Test Item Value Reference Range Interpretation Comments PHOSPHORUS (BEAKER) (test code = 2.8 mg/dL 2.3-4.7 604) [id number] 09:10:00 Test Item Value Reference Range Interpretation Comments MAGNESIUM (BEAKER) (test code = 1.9 mg/dL 1.6-2.6 627) COMPREHENSIVE METABOLIC [id number] 09:10:00 Test Item Value Reference Range Interpretation [...] S NOT APPLICABLE FOR DIALYSIS PATIEN TS. [id number] 09:01:00 Test Item Value Reference Range Interpretation [...] for patients with mechanical heart valves.LACTIC ACID, [id number] 08:51:00 Test Item Value Reference Range Interpretation Comments LACTATE BLOOD 0.8 mmol/L 0.5-2.2 Specimen sligh tly ARTERIAL (2) (BEAKER) hemoly zed (test code = 2874) BLOOD GAS, [id number] 08:40:00 Test Item Value Reference Range Interpretation [...] (BEAKER) (test code = 1819) 80.0 % [id number] 08:00:00 Test Item Value Reference Range Interpretation Comments MAGNESIUM (BEAKER) (test code = 1.8 mg/dL 1.6-2.6 627) Add onCBC W/PLT COUNT & AUTO [id number] 06:45:00 Test Item Value Reference Range Interpretation [...] (BEAKER) (test code = 2801) BASIC METABOLIC [id number] 06:35:00 Test Item Value Reference Range Interpretation [...] PATIEN TS. RAD, CHEST, 1 VIEW, NON [id number] 05:10:00Reason for exam:->sob, tachypneaShould this be performed [...] Stable contours. Additional findings: None. Signed: Ivanna aCrrilloeport Verified Date/Time: 06/15/2018 05:10:33 Reading Location: [facility] B1 C013T Transitional Reading Room POCT-LACTIC ACID, VENOUS 2018-06-15 04:30:00 Test Item Value Reference Range Interpretation Comments POC-LACTIC ACID, 1.1 mmol/L 0.9-1.7 TESTED AT [facility] 6720 VENOUS (BEAKER) (test ALIYA Ruiz [place] code = 2805) [address] URINALYSIS W/ REFLEX URINE [id number] 20:03:00 Test Item Value Reference Range Interpretation [...] code = 514) SOURCE(BEAKER) (test code = 0014) RAD, CHEST, 1 VIEW, NON [id number] 19:10:00Reason for exam:->SUSUPECTED INFECTIONShould this be performed at the bedside?->YesFINAL REPORT CLINICAL INDICATION: Suspected infection Comparison: 06/14/2018 The cardiomediastinal contours are stable. The lung volumes remain low. Bibasilar opacities, right greater than left, are similar to previous and may reflect atelectasis. Pneumonitis should be excluded clinically. There is no pneumothorax or large pleural effusion. A tracheostomy tube is stable in position. Signed: Mayra Garciaort Verified Date/Time: 06/14/2018 19:10:10 Reading Location: [address] Reading Room CBC W/PLT COUNT & AUTO [id number] 04:36:00 Test Item Value Reference Range Interpretation [...] = 2801) RAD, CHEST, 1 VIEW, NON [id number] 04:13:00Reason for exam:->recent pneumothorax, new trachShould this be performed at the bedside?->YesFINAL REPORT RAD, CHEST, 1 VIEW, NON DEPT INDICATION: recent pneumothorax, new trach COMPARISON: Prior day's exam FINDINGS: Portable frontal view of the chest. IMPRESSION: Support Lines: Stable. Lungs and pleura: Interval increased consolidative airspace opacity of the right base.No large pleural effusion. No pneumothorax.Heart and mediastinum: Stable contours. Additional findings: None. Signed: Ivanna Carrillo Verified Date/Time: 06/14/2018 04:13:50 Reading Location: [address] Reading Room D GAS, [id number] 01:01:00 Test Item Value Reference Range Interpretation [...] (test code = 1819) 40.0 % POCT-GLUCOSE [id number] 05:32:00 Test Item Value Reference Range Interpretation Comments POC-GLUCOSE METER 92 mg/dL 70-110 [facility] [facility] [facility] (BEAKER) (test code = GREGORYFAUSTO [facility] [address] 1538) RAD, CHEST, 1 VIEW, NON [id number] 05:03:00Reason for exam:->evaluate for pneumo r/t CTShould [...] Carrillo Verified Date/Time: 06/13/2018 05:03:31 Reading Location: [address] Transitional Reading Room [id number] 04:22:00 Test Item Value Reference Range Interpretation Comments PARTIAL THROMBOPLASTIN TIME 27.4 seconds 22.5-36.0 (BEAKER) (test code = 760) PROTHROMBIN [id number] 04:21:00 Test Item Value Reference Range Interpretation Comments PROTIME (BEAKER) (test code = 13.8 seconds 11.7-14.7 759) INR (BEAKER) (test code = 370) 1.1 <=5.9 RECOMMENDED COUMADIN/WARFARIN INR THERAPY RANGESSTANDARD DOSE: 2.0 - 3.0 Includes: PROPHYLAXIS for venous thrombosis, systemic embolization; TREATMENT for venous thrombosis and/or pulmonary embolus.HIGH RISK: Target INR is 2.5-3.5 for patients with mechanical heart valves.[id number] 04:20:00 Test Item Value Reference Range Interpretation Comments PHOSPHORUS (BEAKER) (test code = 3.1 mg/dL 2.3-4.7 604) [id number] 04:20:00 Test Item Value Reference Range Interpretation Comments MAGNESIUM (BEAKER) (test code = 2.0 mg/dL 1.6-2.6 627) BASIC METABOLIC [id number] 04:20:00 Test Item Value Reference Range Interpretation [...] PATIEN TS. CBC W/PLT COUNT & AUTO [id number] 04:14:00 Test Item Value Reference Range Interpretation [...] PERCENT (BEAKER) (test code = 2801) POCT-GLUCOSE [id number] 00:14:00 Test Item Value Reference Range Interpretation Comments POC-GLUCOSE METER 126 mg/dL 70-110 H TESTED AT [facility] 6720 [facility] (test code = ALIYA [facility] 1538) [address] RAD, CHEST, 1 VIEW, NON [id number] 12:29:00Reason for exam:->s/p[ L thoracocentesisFINAL REPORT CLINICAL HISTORY: s/p[ L thoracocentesis TECHNIQUE: 1 view of the chest. COMPARISON: 06/12/2018 IMPRESSION: A tracheostomy tube is again seen. There is no pneumothorax. Bibasilar atelectasis is again noted. There is no significant appearing pleural fluid. The cardiomediastinal silhouette is magnified by technique. Signed: Jim Steele MDReport Verified Date/Time: 06/12/2018 12:29:27 Reading Location: [facility] C013W Consult Reading Room POCT-GLUCOSE [id number] 12:10:00 Test Item Value Reference Range Interpretation Comments POC-GLUCOSE METER 194 mg/dL 70-110 H TESTED AT [facility] 9987 (ARCHIE) (test code = ALIYA MASON 1852) [address] CT, CHEST, WITH [id number] 10:26:00Premedicated for contrast allergy. 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 Signed: Saray Gaviria Verified Date/Time: 06/12/2018 10:26:26 Reading Location: [facility] Diagnostic Imaging Reading Room - [place] [address] , SOFT TISSUE NECK, [id number] 09:53:00Premedicated for contrast allergy. With gneral anesthesia [...] MDReport Verified Date/Time: 06/12/2018 09:53:06 Reading Location: [address] Neuro Reading Room [id number] 06:00:00 Test Item Value Reference Range Interpretation Comments PHOSPHORUS (BEAKER) (test code = 2.9 mg/dL 2.3-4.7 604) [id number] 06:00:00 Test Item Value Reference Range Interpretation Comments MAGNESIUM (BEAKER) (test code = 2.1 mg/dL 1.6-2.6 627) BASIC METABOLIC [id number] 06:00:00 Test Item Value Reference Range Interpretation [...] NOT APPLICABLE FOR DIALYSIS PATIEN TS. POCT-GLUCOSE [id number] 05:44:00 Test Item Value Reference Range Interpretation Comments POC-GLUCOSE METER 157 mg/dL 70-110 H TESTED AT [facility] 6720 ([facility]) (test code = ALIYA [place] 1538) [address] CBC W/PLT COUNT & AUTO [id number] 04:29:00 Test Item Value Reference Range Interpretation [...] = 2801) RAD, CHEST, 1 VIEW, NON [id number] 04:26:00Reason for exam:->evaluate for pneumo r/t CTShould this be performed at the bedside?->YesFINAL REPORT CLINICAL INDICATION: Support lines. Comparison: 06/10/2018 The cardiomediastinal contours are stable. The lung volumes remain low. The lateral pulmonary opacities are similar to previous within variation of acquisition technique. There is no pneumothorax. A tracheostomy tube is stable. Signed: Mayra Garcia Verified Date/Time: 06/12/2018 04:26:44 Reading Location: [address] Reading Room [id number] 04:02:00 Test Item Value Reference Range Interpretation Comments PARTIAL THROMBOPLASTIN TIME 29.1 seconds 22.5-36.0 (BEAKER) (test code = 760) PROTHROMBIN [id number] 04:01:00 Test Item Value Reference Range Interpretation Comments PROTIME (BEAKER) (test code = 13.4 seconds 11.7-14.7 759) INR (BEAKER) (test code = 370) 1.0 <=5.9 RECOMMENDED COUMADIN/WARFARIN INR THERAPY RANGESSTANDARD DOSE: 2.0 - 3.0 Includes: PROPHYLAXIS for venous thrombosis, systemic embolization; TREATMENT for venous thrombosis and/or pulmonary embolus.HIGH RISK: Target INR is 2.5-3.5 for patients with mechanical heart valves.POCT-GLUCOSE [id number] 00:10:00 Test Item Value Reference Range Interpretation Comments POC-GLUCOSE METER 225 mg/dL 70-110 H TESTED AT [facility] 6720 (BEAKER) (test code = [facility] 1538) [address] POCT-GLUCOSE [id number] 06:14:00 Test Item Value Reference Range Interpretation Comments POC-GLUCOSE METER 129 mg/dL 70-110 H TESTED AT [facility] 6720 (BEAKER) (test code = [facility] 1538) [address] TSH/FREE T4 IF [id number] 04:46:00 Test Item Value Reference Range Interpretation Comments THYROID STIMULATING HORMONE 0.87 uIU/mL 0.35-4.94 (BEAKER) (test code = 772) CBC W/PLT COUNT & AUTO [id number] 04:30:00 Test Item Value Reference Range Interpretation [...] 0-1 PERCENT (BEAKER) (test code = 2801) [id number] 04:26:00 Test Item Value Reference Range Interpretation Comments PREALBUMIN (BEAKER) (test code = 25 mg/dL 14-45 586) [id number] 04:24:00 Test Item Value Reference Range Interpretation Comments PHOSPHORUS (BEAKER) (test code = 3.5 mg/dL 2.3-4.7 604) [id number] 04:24:00 Test Item Value Reference Range Interpretation Comments MAGNESIUM (BEAKER) (test code = 2.0 mg/dL 1.6-2.6 627) BASIC METABOLIC [id number] 04:24:00 Test Item Value Reference Range Interpretation [...] 358) GLUCOSE RANDOM 129 mg/dL 70-105 H ([facility]) (test code = 652) CALCIUM (AKER) 9.2 mg/dL 8.4-10.2 (test code = 697) EGFR ([facility]) (test 127 mL/min/1.73 ESTIM ATED GFR IS code = 1092) sq m NOT ACCURATE CREATININE CLEARANCE IN PREDICTING GLOMERULAR FILTRATION RATE . ESTIMATED GFR I S NOT APPLICABLE FOR DIALYSIS PATIEN TS. PROTHROMBIN [id number] 04:19:00 Test Item Value Reference Range Interpretation Comments PROTIME ([facility]) (test code = 14.5 seconds 11.7-14.7 759) INR ([facility]) (test code = 370) 1.1 <=5.9 RECOMMENDED COUMADIN/WARFARIN INR THERAPY RANGESSTANDARD DOSE: 2.0 - 3.0 Includes: PROPHYLAXIS for venous thrombosis, systemic embolization; TREATMENT for venous thrombosis and/or pulmonary embolus.HIGH RISK: Target INR is 2.5-3.5 for patients with mechanical heart valves.[id number] 04:19:00 Test Item Value Reference Range Interpretation Comments PARTIAL THROMBOPLASTIN TIME 29.7 seconds 22.5-36.0 ([facility]) (test code = 760) POCT-GLUCOSE [id number] 01:04:00 Test Item Value Reference Range Interpretation Comments POC-GLUCOSE METER 128 mg/dL 70-110 H TESTED AT [place] [address] ([facility]) (test code = [facility] 1538) [address] POCT-GLUCOSE [id number] 18:19:00 Test Item Value Reference Range Interpretation Comments POC-GLUCOSE METER 93 mg/dL 70-110 TESTED AT [place] [address] ([facility]) (test code = [facility] [address] 1538) POCT-GLUCOSE [id number] 11:44:00 Test Item Value Reference Range Interpretation Comments POC-GLUCOSE METER 87 mg/dL 70-110 TESTED AT [place] [address] ([facility]) (test code = [facility] [address] 1538) POCT-GLUCOSE [id number] 06:13:00 Test Item Value Reference Range Interpretation Comments POC-GLUCOSE METER 158 mg/dL 70-110 H TESTED AT [place] [address] (BEAKER) (test code = ALIYA [place] 1538) [address] BLOOD GAS, [id number] 04:53:00 Test Item Value Reference Range Interpretation [...] = 1818) RAD, CHEST, 1 VIEW, NON [id number] 04:42:00Reason for exam:->s/p tracheostomyShould this be performed [...] Carrillo Verified Date/Time: 06/10/2018 04:42:37 Reading Location: [address] Reading Room [id number] 04:29:00 Test Item Value Reference Range Interpretation Comments MAGNESIUM (BEAKER) 2.2 mg/dL 1.6-2.6 Specimen slightly (test code = 627) hemolyzed [id number] 04:29:00 Test Item Value Reference Range Interpretation Comments PHOSPHORUS (BEAKER) 3.7 mg/dL 2.3-4.7 Specimen slightly (test code = 604) hemolyzed BASIC METABOLIC [id number] 04:29:00 Test Item Value Reference Range Interpretation [...] S NOT APPLICABLE FOR DIALYSIS PATIEN TS. [id number] 04:18:00 Test Item Value Reference Range Interpretation Comments PARTIAL THROMBOPLASTIN TIME 24.5 seconds 22.5-36.0 (BEAKER) (test code = 760) PROTHROMBIN [id number] 04:17:00 Test Item Value Reference Range Interpretation Comments PROTIME (BEAKER) (test code = 13.7 seconds 11.7-14.7 759) INR (BEAKER) (test code = 370) 1.0 <=5.9 RECOMMENDED COUMADIN/WARFARIN INR THERAPY RANGESSTANDARD DOSE: 2.0 - 3.0 Includes: PROPHYLAXIS for venous thrombosis, systemic embolization; TREATMENT for venous thrombosis and/or pulmonary embolus.HIGH RISK: Target INR is 2.5-3.5 for patients with mechanical heart valves.CBC W/PLT COUNT & AUTO [id number] 04:06:00 Test Item Value Reference Range Interpretation [...] PERCENT (BEAKER) (test code = 2801) POCT-GLUCOSE [id number] 01:05:00 Test Item Value Reference Range Interpretation Comments POC-GLUCOSE METER 161 mg/dL 70-110 H TESTED AT [facility] 6720 (ARCHIE) (test code = ALIYA [place] 1538) [address] RAD, CHEST, 1 VIEW, NON [id number] 22:19:00Reason for exam:->Laryngeal massShould this be performed [...] Morales Verified Date/Time: 06/09/2018 22:19:49 Reading Location: [facility] C0[facility] Consult Reading Room RAD, CHEST, 1 VIEW, NON [id number] 20:37:00Reason for exam:->Laryngeal massShould this be performed [...] Morales Verified Date/Time: 06/09/2018 20:37:30 Reading Location: [facility] B1 C013 Consult Reading Room RAD, CHEST, 1 VIEW, NON [id number] 20:18:00 Reason for exam:->Post-opShould this be performed [...] Additional findings: Osseous structures are unremarkable. Signed: Ivanna Carrilloeport Verified Date/Time: 06/09/2018 20:18:45 Nayla caldera Location: [address] Reading Room CBC W/PLT COUNT & AUTO [id number] 19:32:00 Test Item Value Reference Range Interpretation [...] = 3438) Received comment: User comments: Slide comments:[id number] 19:25:00 Test Item Value Reference Range Interpretation Comments PHOSPHORUS (BEAKER) (test code = 4.7 mg/dL 2.3-4.7 604) [id number] 19:25:00 Test Item Value Reference Range Interpretation Comments MAGNESIUM (BEAKER) (test code = 2.2 mg/dL 1.6-2.6 627) BASIC METABOLIC [id number] 19:25:00 Test Item Value Reference Range Interpretation [...] NOT APPLICABLE FOR DIALYSIS PATIEN TS. PROTHROMBIN [id number] 19:18:00 Test Item Value Reference Range Interpretation Comments PROTIME (BEAKER) (test code = 13.0 seconds 11.7-14.7 759) INR (BEAKER) (test code = 370) 1.0 <=5.9 RECOMMENDED COUMADIN/WARFARIN INR THERAPY RANGESSTANDARD DOSE: 2.0 - 3.0 Includes: PROPHYLAXIS for venous thrombosis, systemic embolization; TREATMENT for venous thrombosis and/or pulmonary embolus.HIGH RISK: Target INR is 2.5-3.5 for patients with mechanical heart valves.[id number] 19:18:00 Test Item Value Reference Range Interpretation Comments PARTIAL THROMBOPLASTIN TIME 24.0 seconds 22.5-36.0 (BEAKER) (test code = 760) [id number] 12:47:00 Test Item Value Reference Range Interpretation Comments HEMOGLOBIN (BEAKER) (test code = 15.7 GM/DL 13.7-17.5 410) PLATELET [id number] 12:47:00 Test Item Value Reference Range Interpretation Comments PLATELET COUNT (BEAKER) (test 203 K/CU MM 150-450 code = 756) History and Physical Notes Date/Time Note Provider Source 2022-11-28 [id number]:16:45Formatting of this note is IM -INTERNAL [facility] - 21:16:45 different from the original.[facility] Health Admission H&P Date of Service: 3CHIEF ST AFF COMPLAINT: Abdominal painHISTORY OF PRESENT ILLNESSRobweston Pugh is a 52 year old male who presents with abdominal pain. Patient with a his tory of chronic pancreatitis. Patient states he devel oped pancreatitis because of gallstones. Patient netta es any significant history of alcohol use/abuse. He states that he may drink once a week. Patient al so with a history of squamous cell carcinoma of the larynx and chronic hyponatremia.He was admitted a few months ago with an elevated lipase level in [place]. At this time, patient will be admitte d to the hospital for further work-up. Patient with a cute on chronic pancreatitis and will continue with p ain control and gentle hydration. We will keep patie nt n.p.o. at this time as well.PAST MEDICAL HISTORY Past Medical History: Diagnosis Date Aphonia 04/13/2019 Asthma Coronavirus infection 2018 Hx of laryngectomy 07/14/2018 Hyponatremia Leukocytos is Neck infection 08/11/2018 Other chronic pancreat itis Squamous cell cancer of larynx Thyroid disease Tracheostomy in place PAST SURGICAL HISTORYPast Surgical History: Procedure Laterality Date ENDOSCOPIC RETROGRADE CHOLANGIOPANCRETOGRAPHY N/ A 01/05/2021 Surgeon: Yosef Napier MD; Location: [place] OR Location ESOPHAGEAL DILATATION N/A 02/11/2020 Surgeon: Fan Espinal MD; Location: [place] [facility] Location ESOPHAGOGASTRODUODENOSCOPY N/A 01/20/2020 Surgeo n: Fan Espinal MD; Location: [facility] Location ESOPHAGOGASTRODUODENOSCOPY N /A 02/01/2020 Surgeon: Yosef Napier MD; Location: [facility] Location ESOPHAGOGASTRODUODENOSCOPY N/A 02/11/2020 Surgeo n: Fan Espinal MD; Location: [place] [facility] OR Location GASTROSTOMY INTRAOPERATIVE CHOLANGIOGRAM N/A 02/15/2020 Surgeon: Cindy Rodriguez MD; Location: [facility] Locati on LAPAROSCOPIC CHOLECYSTECTOMY N/A 02/15/2020 Surg dick: Cindy Rodriguez MD; Location: [facility] OR Location TRACHEOSTOMY UPPER ULTRASOUND (SHX) N/A 01/29/2020 Surgeon: Brodie Jansen MD; Locat ion: [facility] ([facility] OR Location ALLERGIESAllergies Allergen Reactions Bactrim [Sulfamethoxazole-Trimethoprim] Rash Iodine And Iodide Containing Products Nausea Only Penicilli ns Hives and Rash Other reaction(s): Unknown - See comments Ampicillin Unknown - See comments Levofloxacin Hives and Rash MEDICATIONSCurrent h ome medication list reviewed:Current Discharge Medication List STOP taking these medications albuterol 90 mcg/actuation inhaler Comments: [place] son for Stopping: ARIPiprazole 5 mg tablet Comments: Reason for Stopping: ondansetron 4 mg disintegra ting tablet Comments: Reason for Stopping: ESCITALOPR AM OXALATE 20 mg tablet Comments: Reason for Stoppi ng: CREON 12,000-38,000 -60,000 unit capsule Comment s: Reason for Stopping: GABAPENTIN 800 mg tablet Comments: Reason for Stopping: omeprazole 40 mg capsule Comments: Reason for Stopping: levothyro xine 150 mcg tablet Comments: Reason for Stopping: ketoconazole 2 % shampoo Comments: Reason for Stopping: FAMILY HISTORYFamily History Problem Relation Age of Onset Hypertension Father Jesus ry Heart Disease Father 40 PCI 4 stents Breast Canc er Mother SOCIAL HISTORYSocial History Socioeconomi c History Marital status: Single Spouse name: Joss vigil Number of children: 0 Years of education: 16 Hig hest education level: Some college, no degree Occupational History 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 Tobacco Use Smoking status: Some Days Types: Cigarettes Smokeless tobacco: Never Tobac co comments: .5 PPD X >30 yrs Substance and Sexual Activity Alcohol use: Not Currently Comment: 04/05 of liqour per week Drug use: Yes Types: Marijuan a Social Determinants of Health Financial Resource Strain: Low Risk (11/13/2022) Overall Financial Resource Strain (CARDIA) Difficulty of Paying Li ving Expenses: Not hard at all Food Insecurity: No Fo od Insecurity (11/13/2022) Hunger Vital Sign Worried About Running Out of Food in the Last Year: Neve r true Ran Out of Food in the Last Year: Never joanna e Transportation Needs: No Transportation Needs (11/13/2022) PRAPARE - Transportation Lack of Transportation (Medical): No Lack of Transportat ion (Non-Medical): No Physical Activity: Inactive (11/05/2022) Exercise Vital Sign Days of Exercise per Week: 0 days Minutes of Exercise per Session: 0 min Social Connections: Unknown (11/13/2022) Social Connection and Isolation Panel [NHANES] Frequenc y of Communication with Friends and Family: More than three times a week Marital Status: Living with partner Housing Stability: Low Risk (11/13/2022) Housing Stability Vital Sign Unable to Pay for Housing in the Last Year: No Number of Places Li nils in the Last Year: 1 Unstable Housing in the [facility] t Year: No REVIEW OF [id number] systems negative ex cept per HPIPHYSICAL EXAMINATIONBP 118/79 | Pulse 69 | Temp 36.7 ?C (98.1 ?F) | Resp 18 | Ht 1.803 m (5 ' 11") | Wt 79.4 kg (175 lb) | SpO2 94% | BMI 24. 41 kg/m? General: No acute distressHEENT: Normal or al mucosa, anicteric sclerae, NCATCardiovascular: RRRLungs: Symmetric expansion, CTABAbdomen: Soft , mildly tender; no rebound, no guarding. Musculoskeletal: No synovitis, normal muscle massGenitourinary: NormalSkin: No rash, lesionsNeuro: AAOx3, no focal deficitsPsych: Nor mal affectLABS - reviewed pertinent labs as below:CB C BMP PT/INR WBC (10*3/?L) Date Value 11/28/2022 1 3.10 (H) NA (mmol/L) Date Value 11/28/2022 138 No res ults found for: "PT" RBC (10*6/?L) Date Value 023 5.71 (H) K (mmol/L) Date Value 11/28/2022 3.8 IN R (no units) Date Value 02/05/2021 1.0 PLT (10*3/? L) Date Value 11/28/2022 288 CALCIUM (mg/dL) Date V alue 11/28/2022 9.8 HGB (g/dL) Date Value 11/28/2022 18.8 (H) CL (mmol/L) Date Value 11/28/2022 102 a PTT HCT (%) Date Value 11/28/2022 54.2 (H) BUN (mg/d L) Date Value 11/28/2022 12 APTT Patient (Seconds) Date Value 02/05/2021 35 CREATININE (mg/dL) Date Valu e 11/28/2022 0.59 (L) IMAGING - reviewed, pertinen t results as below: No results found for this visi t on 11/28/22.ASSESSMENT:1. Abdominal pain secondary to acute on chronic pancreatitis2. History of squam ous cell carcinoma of the larynx status post laryngectomy3. History of asthma4. Liver cirrhos is5. Nephrolithiasis6. Diverticulosis7. BPHPLAN:1. Patient with abdominal pain secondary to acute o n chronic pancreatitis; lipase significantly eleva meng. Continue with n.p.o. and IV fluids. Continue wit h pain control. Monitor lipase level. Mild pain an d continue with Creon at this time. Continue with pain control.2. 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 History of asthma; continue with inhaler therapy 4. Liver cirrhosis; bilirubin elevated. Coags 2 yea rs ago were normal. Albumin was within normal limit s as well. Hepatitis profile was negative a couple ye ars ago. PATTI testing was negative as well. We will g o ahead and check a MELD score and check coags at this time.5. Nephrolithiasis; nonobstructive so we wi ll continue with monitoring. Patient can follow-up with urology as an outpatient for this as well as his BPH.6. Diverticulosis; outpatient colonoscopy to continue monitoring7. GI DVT prophylaxisDVT prophylaxis: enoxaparinStress ulcer prophylaxis: pantoprazoleCode status: FULLAdvanced Care Plann ing (Z71.89)Above assessment and plan discussed at length with patient, patient expressed full understanding. Questions and concerned addressed.Surrogate decision maker: UKNOWGRAYevel of care expected after discharge: HOMETime spent: 2 minutes discussing the advanced care planSmoking Cessation: (Z71.6)Tobacco user?: NOPatient will require inpatient stay of 2 midnights or more gi jayashree high risk of morbidity and mortality.[place] [employer]ER w as verified during stayMomontserrat Vilchis MD Electronically signed by Sara Vilchis MD a t 11/29/2022 1:52 AM [id number] and physica l [id number]:52:42History and physical [id number]|1887 5011 22AVAvailable for patient aquk72689-4Skhmfur and physical noteLNIM-INTERNAL MEDICINE STAFFIM-[facility] MEDICINE STAFF[address] JwzqCzrgsbcscYtskmythhLQOS7701279266OSIXPJRQOIXJ NGAL [id number]:52:421.2.840.382366.1.72.3.1 5|1. [id number] 2022-11-13 [id number]:44:36Formatting of this note is [facility] - 03:44:36 different from the original.AM MEDICINE HISTORY & Health PHYSICALPCP: Hua Date of Service: 11/13/2022 IEF COMPLAINT: abdominal painHistory of Present Wloggyj70 yo male with PMH of asthma, history of hyponatremia, squamous cell cancer of the larynx , admitted to the hospital as a direct admit from [facility] after he was found to have a lipase level of 824.Past Medical History: Diagno sis Date Aphonia 04/13/2019 Asthma Coronavirus infec tion 2019 Hx of laryngectomy 07/14/2018 Hyponatremia Leukocytosis Neck infection 08/11/2018 Other chr onic pancreatitis Squamous cell cancer of larynx Thyr oid disease Tracheostomy in place Past Surgical Hist ory: Procedure Laterality Date ENDOSCOPIC RETROGRADE CHOLANGIOPANCRETOGRAPHY N/A 01/05/2021 Surgeon: Yosef Napier MD; Location: [place] OR Location ESOPHAGEAL DILATATION N/A 02/11/2020 Surgeon: Fan Espinal MD; Location: [facility] OR Location ESOPHAGOGASTRODUODENOSCOPY N/A 01/20/2020 Surgeo n: Fan Esipnal MD; Location: [facility] OR [facility] ESOPHAGOGASTRODUODENOSCOPY N /A 02/01/2020 Surgeon: Yosef Napier MD; Location: [facility] Location ESOPHAGOGASTRODUODENOSCOPY N/A 02/11/2020 Surgeo n: Fan Espinal MD; Location: [facility] OR [facility] GASTROSTOMY INTRAOPERATIVE CHOLANGIOGRAM N/A 02/15/2020 Surgeon: Cindy Rodriguez MD; Location: [facility] OR Locati on LAPAROSCOPIC CHOLECYSTECTOMY N/A 02/15/2020 Surg dick: Cindy Rodriguez MD; Location: [facility] OR Location TRACHEOSTOMY UPPER ULTRASOUND (SHX) N/A 01/29/2020 Surgeon: Brodie Jansen MD; Locat ion: [facility] Location Allergies Allergen Reactions Bactrim [Sulfamethoxazole-Trimethoprim ] Rash Iodine And Iodide Containing Products Nause a Only Penicillins Hives and Rash Other reaction(s ): Unknown - See comments Ampicillin Unknown - See comments Levofloxacin Hives and Rash @ED@Socia l History Socioeconomic History Marital status: Mani reilly Spouse name: Daniel Number of children: 0 Years of education: 16 Highest education level: Some jt ege, no degree Occupational History Occupation: [employer] / unemployed Tobacco Use Smoking status : Some Days Types: Cigarettes Smokeless tobacco: N ever Tobacco comments: .5 PPD X >30 yrs Substance an d Sexual Activity Alcohol use: Not Currently Comme nt: 1/5th of liqour per week Drug use: Yes Types: Marijuana Social Determinants of Health Financia l Resource Strain: Low Risk (11/05/2022) Overall Financial Resource Strain (CARDIA) Difficulty of Paying Living Expenses: Not hard at all Food Insecurity: No Food Insecurity (11/05/2022) Hunger Vital Sign Worried About Running Out of Food in the Last Year: Never true Ran Out of Food in the [place] t Year: Never true Transportation Needs: No Transportation Needs (11/05/2022) PRAPARE - Transportation Lack of Transportation (Medical): No Lack of Transportation (Non-Medical): No Physica l Activity: Inactive (11/05/2022) Exercise Vital Sig n Days of Exercise per Week: 0 days Minutes of Exercise per Session: 0 min Social Connections: Unknown (11/05/2022) Social Connection and Isolati on Panel [NHANES] Frequency of Communication with Friends and Family: More than three times a week Marital Status: Living with partner Housing Stability: Low Risk (11/05/2022) Housing Stability Vital Sign Unable to Pay for Housing in the Last Year: No Number of Places Lived in the Last Year : 1 Unstable Housing in the Last Year: No Family His tory Problem Relation Age of Onset Hypertension Fathe r Coronary Heart Disease Father 40 PCI 4 stents [place] Cancer Mother REVIEW OF SYSTEMS(-)=Negative,(+)=Positive General: negativeSkin: negativeHEENT: negativeNeck: negativeHeme: negativeResp: negativeCardio: negativeGI: abdominal painGU: negativeEndo: negativeNeuro: negativeBack: negativeMSS: negativePsych: negativePHYSICAL EXAMINATIONVital s: 11/13/22 0301 BP: 118/64 Pulse: 56 Resp: 16 Temp : 36.2 ?C (97.2 ?F) SpO2: 95% Body mass index is 3 4.96 kg/m?.General: Awake, alert, oriented x3Head: Normocephalic, atraumaticEyes: PERRLA, EOMIOropharynx: Clear, moist oral mucosaNeck: Supple, no lymphadenopathyCardiovascular: RRR, n o murmurs, gallops, rubsLung: CTA bilaterallyAbdom en: Soft, nontender, nondistended, normoactive bowel sounds x4Skin: Clean/dry/intactNeurologic: NonfocalExtremities: No cyanosis/clubbing/edemaLABS:Recent Results (from the past 24 hour(s)) CBC WITH DIFF Collection Time: 11/12/22 8:34 PM Result Value Ref Range WBC 7.83 4.20 - 10.70 10*3/?L RBC 4.80 4.26 - 5.52 10*6/? L HGB 15.7 12.2 - 16.4 g/dL HCT 46.9 38.4 - 49.3 % MCV 97.7 (H) 81.7 - 95.6 fL MCH 32.7 26.1 - 32.7 pg MCHC 33.5 31.2 - 35.0 g/dL RDW-SD 52.8 (H) 38.5 - 51. 6 fL RDW-CV 14.6 12.1 - 15.4 % PLT 243 150 - 328 10*3 /?L MPV 10.1 9.8 - 13.0 fL NRBC/100 WBC 0.0 0.0 - 10 .0 /100 WBCs NRBC x10^3 <0.01 10*3/?L GRAN MAT (SELVIN T) % 72.2 % IMM GRAN % 0.90 % LYMPH % 14.7 % MONO % 10.0 % EOS % 1.4 % BASO % 0.8 % GRAN MAT x10^3(ANC) 5 .66 1.99 - 6.95 10*3/uL IMM GRAN x10^3 0.07 (H) 0.00 - 0.06 10*3/uL LYMPH x10^3 1.15 1.09 - 3.23 10*3/u L MONO x10^3 0.78 0.36 - 1.02 10*3/uL EOS x10^3 0. 11 0.06 - 0.53 10*3/uL BASO x10^3 0.06 0.01 - 0.09 10*3/uL BASIC METABOLIC PANEL (NA, K, CL, CO2, GLUCOSE, BUN, CREATININE, CA) Collection Time: 11/12/22 8:34 PM Result Value Ref Range NA 141 1 35 - 145 mmol/L K 3.4 (L) 3.5 - 5.0 mmol/L CL 104 98 - 108 mmol/L CO2 TOTAL 24 23 - 31 mmol/L AGAP 13 2 - 16 BUN 5 (L) 7 - 23 mg/dL GLUCOSE 100 70 - 110 m g/dL CREATININE 0.54 (L) 0.60 - 1.25 mg/dL CALCIUM 8. 7 8.6 - 10.6 mg/dL eGFR 159.8 mL/min/1.73m2 HEPATI C FUNCTION PANEL (99458) (ALB,T.PRO,BILI T,BU/BC,ALT,AST,ALK PHOS) Collection Time: 11/12 8:34 PM Result Value Ref Range TOTAL BILI 0.5 0. 1 - 1.1 mg/dL BILI UNCON 0.3 0.1 - 1.1 mg/dL BILI CO NJ 0.0 0.0 - 0.3 mg/dL T PROTEIN 6.9 6.3 - 8.2 g/dL ALBUMIN 3.9 3.5 - 5.0 g/dL ALK PHOS 98 34 - 122 U/L ALTv 17 5 - 50 U/L AST(SGOT) 16 13 - 40 U/L LIPA SE Collection Time: 11/12/22 8:34 PM Result Value R ef Range LIPASE 824 (H) 0 - 220 U/L RADIOLOGY:CT ABDOMEN PELVIS WO CONTRASTResult Date: 11/12/2022Impression: Mild acute pancreatitis has mildly improved as compared to the prior exam. Hepatic cirrhosis. Cholecystectomy. Non obstruct ing urinary calculus in the right kidney. Sigmoid an d descending diverticulosis without acute diverticulitis. Enlarged prostate gland. AFC: 99 053 RL 460 End of report. : N/JUSTIN RT REVIEW:[email or web address]/[email or web address] Jarrod phillips is a 52 year old male with PMHx of chronic pancreatitis, admitted to the hospital with:acut e pancreatitisAcute on chronic pancreatitisDehydrationHypothyroidismGERDNPOPain controlIV fluidsHome [email or web address]: D VT: enoxaparinStress Ulcer: pantoprazoleDr. Radu Treadwell [id number] and physical [id number]:56:00History and physical [id number] 75AVAvailable for patient [id number] and physical noteLNUT[address] X[id number] NGAL [id number]:56:[id number] 5|1. [id number] 2022-11-04 [id number]:53:48Formatting of this note is SDMB - 21:53:48 different from the original.MEDICINE [facility] Health H&PDate of Service: 11/04/2022HIEF COMPLAINT: abdominal pain, nausea/vomiting, diarrheaHistory of Present Ogrshpc86 yo male with pmh of asthma, CO VID, chronic pancreatitis, laryngeal cancer and MRSA tracheitis s/p tracheostomy, hypothyroidism who presents to the ED secondary to nausea, vomiting , diarrhea and abdominal pain for the past 2 days. He describes it as Non-radiating epigastric worseni ng abdominal pain. No fever and eating okay. Additi onal symptoms: loose diarrhea.PAST MEDICAL HISTORY Garland gaines Medical History: Diagnosis Date Aphonia 04/13/19 Asthma Coronavirus infection 2018 Hx of laryngec acacia 07/14/2018 Hyponatremia Leukocytosis Neck infect ion 08/11/2018 Other chronic pancreatitis Squamous c ell cancer of larynx Thyroid disease Tracheostomy in place Past Surgical History: Procedure Lateralit y Date ENDOSCOPIC RETROGRADE CHOLANGIOPANCRETOGRAP HY N/A 01/05/2021 Surgeon: Yosef Napier MD; Locati on: [place] OR Location ESOPHAGEAL DILATATION N/A 02/11/2020 Surgeon: Fan Espinal MD; Location: [facility] OR Location ESOPHAGOGASTRODUODENOSCOPY N/A 01/20/2020 Surgeo n: Fan Espinal MD; Location: [facility] OR Location ESOPHAGOGASTRODUODENOSCOPY N /A 02/01/2020 Surgeon: Yosef Napier MD; Location: [facility] ([facility]) OR Location ESOPHAGOGASTRODUODENOSCOPY N/A 02/11/2020 Surgeo n: Fan Espinal MD; Location: [facility] OR Location GASTROSTOMY INTRAOPERATIVE CHOLANGIOGRAM N/A 02/15/2020 Surgeon: Cindy Rodriguez MD; Location: [facility] OR Locati on LAPAROSCOPIC CHOLECYSTECTOMY N/A 02/15/2020 Surg dick: Cindy Rodriguez MD; Location: [facility] OR Location TRACHEOSTOMY UPPER ULTRASOUND (SHX) N/A 01/29/2020 Surgeon: Brodie Jansen MD; Locat ion: [facility] ([facility]) OR Location Family History Proble m Relation Age of Onset Hypertension Father Jesus ry Heart Disease Father 40 PCI 4 stents Breast Can cer Mother ALLERGIESAllergies Allergen Reactions Lisa trim [Sulfamethoxazole-Trimethoprim] Rash Iodine And Iodide Containing Products Nausea Only Penicilli ns Hives and Rash Other reaction(s): Unknown - See comments Ampicillin Unknown - See comments Levofloxacin Hives and Rash MEDICATIONSNo curren t facility-administered medications on file prior to encounter. Current Outpatient Medications on Arnaud e Prior to Encounter Medication Sig Dispense Refil l ESCITALOPRAM OXALATE 20 mg tablet TAKE ONE TABLE T BY MOUTH EVERY MORNING 90 tablet 1 albuterol 90 mcg/actuation inhaler Inhale 2 Puffs every 6 (si x) hours as needed for Wheezing or Shortness of Natalie ath. 8.5 g 0 CREON 12,000-38,000 -60,000 unit capsule TAKE ONE CAPSULE BY MOUTH EVERY MORNING , ONE CAPSULE AT NOON AND 1 CAPSULE IN THE EVENING WIT H MEALS 90 capsule 3 GABAPENTIN 800 mg tablet TAKE ONE TABLET BY MOUTH EVERY MORNING , ONE TABLET AT NO ON AND 1 TABLET IN THE EVENING 90 tablet 1 omeprazo le 40 mg capsule Take one capsule by mouth twice da trace for one week then one capsule by mouth daily 97 capsule 3 levothyroxine 150 mcg tablet Take 1 ta blet by mouth every morning. 90 tablet 1 ARIPiprazole 5 mg tablet Take 1 tablet by mouth in the morning. 90 tablet 1 ketoconazole 2 % shampoo Apply to area( s) once daily as needed for Itching. 120 mL 1 I att est that the foregoing medication list in the medica l record is true, accurate and complete to the bes t of my knowledge.SOCIAL HISTORYSocial History Socioeconomic History Marital status: Single Spo use name: [place] Number of children: 0 Years of education: 16 Highest education level: Some jt ege, no degree Occupational History Occupation: [employer] / unemployed Tobacco Use Smoking status : Former Smokeless tobacco: Never Tobacco comments : .5 PPD X >30 yrs Substance and Sexual Activity Alco hol use: Not Currently Comment: 1/5th of liqour per week Drug use: Yes Types: Marijuana Social Determinan ts of Health Financial Resource Strain: Low Risk (01/29/2020) Overall Financial Resource Strain (CARDIA) Difficulty of Paying Living Expenses: N ot hard at all Food Insecurity: No Food Insecurity (01/29/2020) Hunger Vital Sign Worried About Run laura Out of Food in the Last Year: Never true Ran Out of Food in the Last Year: Never true Transportation Needs: No Transportation Needs (01/29/2020) PRAP ARE - Transportation Lack of Transportation (Medical ): No Lack of Transportation (Non-Medical): No Revi ew of Systems Constitutional: Negative. HENT: Negat pelon. Eyes: Negative. Respiratory: Positive for cough (nonproductive). Negative for apnea, choking, ch est tightness, shortness of breath, wheezing and stridor. Breasts: Negative. Cardiovascular: Negative. Gastrointestinal: Positive for abdomin al pain, diarrhea (loose), nausea and vomiting. Negative for abdominal distention, anal bleeding , blood in stool, constipation and rectal pain. Genitourinary: Negative. Musculoskeletal: Negati ve. Skin: Negative. Neurological: Negative. Psychiatric/Behavioral: Negative. Endocrine: Endocrine negativePHYSICAL EXAMINATIONVitals: 11/04/22 1700 11/04/22 1800 11/04/22 1929 1952 BP: 120/82 105/62 112/70 Pulse: 73 63 52 Re sp: 16 14 20 Temp: 36.1 ?C (97 ?F) TempSrc: SpO2: 94 % 93% 92% Weight: Height: 1.524 m (5') Physical ExamVitals and nursing note reviewed. Constitutional: General: He is not in acute distress. Appearance: Normal appearance. He is n ot ill-appearing, toxic-appearing or diaphoretic. H ENT: Head: Normocephalic and atraumatic. Right Ear: External ear normal. Left Ear: External ear norm al. Nose: Nose normal. No congestion. Mouth/Throat: Mouth: Mucous membranes are moist. Pharynx: No oropharyngeal exudate. Eyes: General: No scleral icterus. Extraocular Movements: Extraocular movements intact. Conjunctiva/sclera: Conjunctiv ae normal. Pupils: Pupils are equal, round, and reactive to light. Cardiovascular: Rate and Rhyt hm: Normal rate and regular rhythm. Heart sounds: No murmur heard. No friction rub. No gallop. Pulmon tawana: Effort: Pulmonary effort is normal. No respirato ry distress. Breath sounds: Normal breath sounds. N o wheezing or rales. Chest: Chest wall: No tendern ess. Abdominal: General: Abdomen is flat. Bowel sound s are normal. There is no distension. Palpations: Abdomen is soft. Tenderness: There is abdominal tenderness (epigastric). There is no guarding. Musculoskeletal: General: Normal range of motion . Cervical back: Normal range of motion and neck supple. Right lower leg: No edema. Left lower le g: No edema. Skin: General: Skin is warm and dry. Neurological: Mental Status: He is alert. Psychiatric: Mood and Affect: Mood normal. Behav ior: Behavior normal. Thought Content: Thought conten t normal. Judgment: Judgment normal. LABS - review ed pertinent labs as below:ReviewedIMAGING - review ed, pertinent results as below: CT abdomen and pelvi s without contrast History: Abdominal pain, acute, nonlocalized Iodine allergy, h/oPancreatitis Technique: CT dose reduction by ALARA principles . Multiple contiguousaxial CT images of the abdome n and pelvis were obtained without contrast.Sagitt al and coronal reformatted images were constructed. Prior: None Findings: The lung bases are clear. The visualized heart is normal in size. Coronaryatherosclerosis is present. The liver is normal in size. No intrahepatic biliary dilatati on. Cholecystectomy clips are present. The pancreati c head appears ill-definedwith some inflammatory stranding that tracks into Morison's pouch. Findingsmay represent pancreatitis. No inflammat ory changes of the body or tail ofthe pancreas. Ther e is mild chronic perinephric stranding/scarring of t he kidneys. Nohydronephrosis bilaterally. There is a 1 mm punctate nonobstructing stoneof the right kid antonina. There is mild calcified plaque of the aorta. Theaorta demonstrates no aneurysm. There is mild diffuse prominence of the wall of the bladder wh ich may besecondary to incomplete distention or cystitis. Mild hypertrophy of thebladder wall as result of partial bladder outlet obstruction fro m a mildlyenlarged prostate gland also cannot be excluded. There is no free fluid. The stomach is normal. The second portion of the duodenum demonstratesinflammatory wall thickening which m ay be secondary to duodenitis or as aresult of joelle cent pancreatitis. There is minimal fluid within smal l bowelloops in the lower abdomen without signific ant dilatation and no wallthickening. Findings are nonspecific. Enteritis cannot be excluded. There is mild diverticulosis of the colon without diverticulitis. Theappendix not visualized. Ther e is no inflammatory changes in the region ofthe cecu m. The included bones are intact. IMPRESSIONImpress ion: Inflammatory thickening seen at the second porti on of the duodenum withill-defined pancreatic head. Findings may represent duodenitis and/orpancreatitis. Correlation with laboratory values recommended. Endoscopy maybe warranted. T here is minimal fluid within small bowel loops in the lower abdomenwithout significant dilatation and no wall thickening. Findings arenonspecific. Enteri tis cannot be excluded. There is mild diverticulosis of the colon without diverticulitis. There is a 1 m m punctate nonobstructing stone of the left kidney . There is mild diffuse prominence of the wall of the bladder which may besecondary to incomplete distention or cystitis. Mild hypertrophy of thebladder wall as result of partial bladder out let obstruction from a mildlyenlarged prostate gland also cannot be excluded. ---- ASSESSMENT/PLANRobert Jarrod Pugh is a 52 year old obese male with PMH as listed above, admitted to the hospital with: Acute on chronic pancreatitis:-- Will keep NPO-- IV fluid hydration-- Will order Zofran for pain control a s well as Nar[place] and continue the Fentanyl for as n eed pain control-- AM lipid panel-- Will continue wi Creon2. Asthma: stable-- Will resume albuterol a s needed3. Hypothyroidism-- Will continue with levothyroxine4. Bipolar disease-- Will resume escitalopram, gabapentin, aripiprazole5. GERD:-- will resume omeprazoleProphylaxis: DVT- enoxaparinCode Status: addressed: FCElectronical ly signed by Eli Toney MD at 11/05/2022 3:54 AM [id number] and physical [id number]:54:37History and physical [id number] 13AVAvailable for patient [id number] and physical noteLNUTCHRISTUS ST. [facility] - [address] Pu[id number] NGAL [id number]:54:[id number] 5|1. [id number]
[2022-12-31 16:58] LABS: Hematocrit 50.6 % (39.6-49.0); Lymphocytes % 12.7 % (15.3-44.8); MCV 94.5 fL (80-100); MPV 7.8 fL (7.6-11.3); Platelets 247 thou/uL (152-406); RBC Red Blood Cell Count 5.36 M/uL (4.33-5.43)
[2022-12-31 17:15] LABS: Albumin 3.1 g/dL (3.4-5.0); Bilirubin Total 0.8 mg/dL (0.2-1.0); Potassium 3.8 mEq/L (3.5-5.1); Protein, Total 7.2 g/dL (6.4-8.2)
[2022-12-31] MEDS ORDERED: NA CHLORIDE 0.9% 50 ML ONE (17:28)
[2022-12-31] MEDS ORDERED: NA CHLORIDE 0.9% 1,000 ML ONE ×2 (17:28→18:20)
[2022-12-31] MEDS ORDERED: HALOPERIDOL LACT 5 MG/ML INJ ONE (17:28)
--- NOTE | 2022-12-31 17:59 | ER ---
Nurse's Notes [facility] Name: Akin Pugh Age: 52 yrs Sex: Male : 1970 Arrival Date: 12/31/2022 Time: 15:36 Bed 14 Private MD: Diagnosis: Other chronic pancreatitis;Upper abdominal pain, unspecified Presentation: 12/31 15:56 Chief complaint: N/V/D and upper abdominal pain since this morning. Not tolerating hb fluids. Coronavirus screen: Client presents with at least one sign or symptom that may indicate coronavirus-19. Provider contacted for isolation considerations. Ebola Screen: No symptoms or risks identified at this time. Initial Sepsis Screen: Does the patient meet any 2 criteria? No. Patient's initial sepsis screen is negative. Does the patient have a suspected source of infection? No. Patient's initial sepsis screen is negative. Risk Assessment: Do you want to hurt yourself or someone else? Patient reports no desire to harm self or others. Onset of symptoms was December 31, 2022. 15:56 Method Of Arrival: Ambulatory hb 15:56 Acuity: PAO 3 hb Historical: - Allergies: 15:57 Ampicillin; hb 15:57 Iodine; hb 15:57 Iodinated Contrast Media - IV Dye; hb 15:57 Levaquin; hb - PMHx: 15:57 Asthma; COPD; THROAT CA; Pancreatitis; hb - Immunization history:: Adult Immunizations up to date. - Social history:: Smoking status: . Screenin:45 [facility] ED Fall Risk Assessment (Adult) History of falling in the last 3 months, kc6 including since admission No falls in past 3 months (0 pts) Confusion or Disorientation No (0 pts) Intoxicated or Sedated No (0 pts) Impaired Gait No (0 pts) Mobility Assist Device Used No (0 pt) Altered Elimination No (0 pt) Score/Fall Risk Level 0 - 2 = Low Risk. Abuse screen: Denies threats or abuse. Denies injuries from another. Nutritional screening: No deficits noted. Tuberculosis screening: No symptoms or risk factors identified. Assessment: 17:08 Reassessment: No changes from previously documented assessment. Patient and/or family ll1 updated on plan of care and expected duration. Pain level reassessed. 18:12 General: Appears in no apparent distress. comfortable, Behavior is calm, cooperative, kc6 appropriate for age. Pain: Complains of pain in abdomen. Neuro: Level of Consciousness is awake, alert, obeys commands, Oriented to person, place, time, situation, Appropriate for age. Cardiovascular: Capillary refill < 3 seconds. Respiratory: Airway is patent Trachea midline Respiratory effort is even, unlabored, Respiratory pattern is regular, symmetrical. GI: Abdomen is flat, non-distended, Reports diarrhea, nausea, vomiting. : No signs and/or symptoms were reported regarding the genitourinary system. EENT: No signs and/or symptoms were reported regarding the EENT system. Derm: No signs and/or symptoms reported regarding the dermatologic system. Skin is intact, is healthy with good turgor, Skin is pink, warm \T\ dry. Musculoskeletal: No signs and/or symptoms reported regarding the musculoskeletal system. Circulation, motion, and sensation intact. Capillary refill < 3 seconds, Range of motion: intact in all extremities. 18:20 Reassessment: No changes from previously documented assessment. Patient and/or family ll1 updated on plan of care and expected duration. Pain level reassessed. 18:45 Reassessment: Patient appears in no apparent distress at this time. No changes from kc6 previously documented assessment. Patient and/or family updated on plan of care and expected duration. Pain level reassessed. Patient is alert, oriented x 3, equal unlabored respirations, skin warm/dry/pink. 19:30 Reassessment: Patient appears in no apparent distress at this time. Patient and/or pf1 family updated on plan of care and expected duration. Pain level reassessed. Patient is alert, oriented x 3, equal unlabored respirations, skin warm/dry/pink. Patient states symptoms have not improved. 19:30 General: Appears in no apparent distress. comfortable, well groomed, well developed, pf1 Behavior is calm, cooperative, appropriate for age, quiet. Pain: Complains of pain in left upper quadrant and right upper quadrant Pain currently is 7 out of 10 on a pain scale. Neuro: No deficits noted. Level of Consciousness is awake, alert, obeys commands, Oriented to person, place, time, situation. Cardiovascular: No deficits noted. Capillary refill < 3 seconds Patient's skin is warm and dry. Respiratory: No deficits noted. Airway is patent Respiratory effort is even, unlabored, Respiratory pattern is regular, symmetrical, Breath sounds are clear bilaterally. GI: Abdomen is flat, non-distended, Reports upper abdominal pain, diarrhea, nausea, vomiting. : No deficits noted. No signs and/or symptoms were reported regarding the genitourinary system. EENT: No deficits noted. No signs and/or symptoms were reported regarding the EENT system. Derm: No deficits noted. No signs and/or symptoms reported regarding the dermatologic system. 20:30 Reassessment: Patient appears in no apparent distress at this time. No changes from pf1 previously documented assessment. Patient and/or family updated on plan of care and expected duration. Pain level reassessed. Patient is alert, oriented x 3, equal unlabored respirations, skin warm/dry/pink. 21:15 Reassessment: Patient appears in no apparent distress at this time. No changes from pf1 previously documented assessment. Patient and/or family updated on plan of care and expected duration. Pain level reassessed. Patient is alert, oriented x 3, equal unlabored respirations, skin warm/dry/pink. Patient states symptoms have not improved. Vital Signs: 15:56 BP 129 / 89; Pulse 89; Resp 20; Temp 97.7(TE); Pulse Ox 96% on R/A; Weight 79.38 kg; hb Height 5 ft. 11 in. ; Pain 7/10; 18:11 BP 140 / 93; Pulse 80; Resp 20 S; Pulse Ox 100% on R/A; kc6 18:45 BP 140 / 93; Pulse 73; Resp 12 S; Pulse Ox 100% on R/A; kc6 19:30 BP 145 / 95; Pulse 76; Resp 16; Pulse Ox 98% on R/A; Pain 7/10; pf1 20:30 BP 142 / 86; Pulse 77; Resp 17; Temp 98.2; Pulse Ox 96% on R/A; Pain 7/10; pf1 21:16 BP 156 / 91; Pulse 68; Resp 16; Pulse Ox 98% on R/A; pf1 15:56 Body Mass Index 24.41 (79.38 kg, 180.34 cm) hb 15:56 Pain Scale: Adult hb 19:30 Pain Scale: Adult pf1 20:30 Pain Scale: Adult pf1 ED Course: 15:37 Patient arrived in ED. rg4 15:40 Deepika Morales FNP-C is PHCP. snw 15:40 Irvin Falcon DO is Attending Physician. snw 15:57 Triage completed. hb 15:58 Arm band placed on. hb 16:50 Initial lab(s) drawn, by me, sent to lab. Missed attempt(s): 22 gauge in left forearm. ll1 Bleeding controlled, band aid applied, catheter tip intact. 17:08 Patient placed in an exam room, on a stretcher. ll1 17:08 SARS-COV-2 RT PCR Sent. bc6 17:08 CMP Sent. bc6 17:08 Lipase Sent. bc6 17:09 Inserted saline lock: 20 gauge in left antecubital area, using aseptic technique. Blood bc6 collected. 17:13 Ginny Hudson, JEAN is Primary Nurse. kc6 17:58 Bala Anderson MD is Hospitalizing Provider. snw 18:46 Patient has correct armband on for positive identification. Bed in low position. Call kc6 light in reach. Side rails up X 1. Client placed on continuous cardiac and pulse oximetry monitoring. NIBP monitoring applied. patient monitor on. 20:45 Provided Education on: admission. pf1 20:45 No provider procedures requiring assistance completed. Patient admitted, IV remains in pf1 place. Administered Medications: 17:26 Drug: Haloperidol IVP 2.5 mg/50 mL 2.5 mg IVP once; Place patient on a hall monitor kc6 Route: IVP; Site: left antecubital; 18:10 Follow up: Response: No adverse reaction; Nausea is decreased; Vomiting decreased kc6 17:26 Drug: NS 0.9% IV 1000 ml IV at 1 bolus Per protocol; 1000 mL bolus Route: IV; Rate: 1 kc6 bolus; Site: left antecubital; 18:10 Follow up: Response: No adverse reaction; IV Status: Completed infusion; IV Intake: kc6 1000ml 18:19 Drug: NS 0.9% IV 1000 ml IV at 1 bolus Per protocol; 1000 mL bolus Route: IV; Rate: 1 ll1 bolus; Site: left antecubital; 18:47 Follow up: Response: No adverse reaction; IV Status: Completed infusion; IV Intake: kc6 1000ml 18:19 Drug: fentaNYL (PF) IVP 25 mcg IVP once {Note: pain 7/10, RASS 0.} Route: IVP; Site: ll1 left antecubital; 18:47 Follow up: Response: No adverse reaction; Pain is decreased; RASS: Alert and Calm (0) kc6 Medication: 20:45 VIS not applicable for this client. pf1 Intake: 18:10 IV: 1000ml; Total: 1000ml. kc6 18:47 IV: 1000ml; Total: 2000ml. kc6 Outcome: 17:58 Decision to Hospitalize by Provider. snw 20:51 Admitted to Med/surg accompanied by tech, via wheelchair, room 209, with chart, pf1 20:51 Condition: stable 21:02 Admitted to Med/surg Report called to JEAN Spicer pf1 21:02 Condition: stable 21:02 Instructed on the need for admit, Demonstrated understanding of instructions, 21:30 Patient left the ED. pf1 Signatures: Deepika Morales, HEALTH PROGRAM ANALYST-C HEALTH PROGRAM ANALYST-Csnw Ya Acosta RN Mavis Hidalgo rg4 Mariam Brooks RN RN ll1 Ginny Hudson RN RN 6 Chelsea Dunne RN RN pf1 Yaima Turner
--- NOTE | 2022-12-31 17:59 | EDPHYS ---
Physician Documentation [facility] Name: Akin Pugh Age: 52 yrs Sex: Male : 1970 Arrival Date: 12/31/2022 Time: 15:36 Bed 14 Private MD: ED Physician Irvin Falcon HPI: 12/31 17:06 This 52 yrs old Male presents to ER via Ambulatory with complaints of Vomiting/Diarrhea.snw 17:06 The patient presents to the emergency department with nausea, vomiting, diarrhea. snw Onset: The symptoms/episode began/occurred suddenly, today. Possible causes: unknown. The symptoms are alleviated by nothing. Severity of symptoms: At their worst the symptoms were moderate. The patient has experienced similar episodes in the past, multiple times. The patient has not recently seen a physician. sees Dr. Justice at [facility]. Historical: - Allergies: 15:57 Ampicillin; hb 15:57 Iodine; hb 15:57 Iodinated Contrast Media - IV Dye; hb 15:57 Levaquin; hb - PMHx: 15:57 Asthma; COPD; THROAT CA; Pancreatitis; hb - Immunization history:: Adult Immunizations up to date. - Social history:: Smoking status: . ROS: 16:59 Constitutional: Negative for fever, chills, and weight loss, Eyes: Negative for injury, snw pain, redness, and discharge, ENT: Negative for injury, pain, and discharge, Neck: Negative for injury, pain, and swelling, Cardiovascular: Negative for chest pain, palpitations, and edema, Respiratory: Negative for shortness of breath, cough, wheezing, and pleuritic chest pain, Back: Negative for injury and pain, : Negative for injury, bleeding, discharge, and swelling, MS/Extremity: Negative for injury and deformity, Skin: Negative for injury, rash, and discoloration, Neuro: Negative for headache, weakness, numbness, tingling, and seizure, Psych: Negative for depression, anxiety, suicide ideation, homicidal ideation, and hallucinations, 16:59 Abdomen/GI: Positive for abdominal pain, nausea, vomiting, and diarrhea, Exam: 16:57 Constitutional: This is a well developed, well nourished patient who is awake, alert, snw and in no acute distress. Head/Face: Normocephalic, atraumatic. Eyes: Pupils equal round and reactive to light, extra-ocular motions intact. Lids and lashes normal. Conjunctiva and sclera are non-icteric and not injected. Cornea within normal limits. Periorbital areas with no swelling, redness, or edema. 16:57 Neck: Trachea midline, no thyromegaly or masses palpated, and no cervical lymphadenopathy. Supple, full range of motion without nuchal rigidity, or vertebral point tenderness. No Meningismus. Chest/axilla: Normal chest wall appearance and motion. Nontender with no deformity. No lesions are appreciated. Cardiovascular: Regular rate and rhythm with a normal S1 and S2. No gallops, murmurs, or rubs. Normal PMI, no JVD. No pulse deficits. 16:57 Back: No spinal tenderness. No costovertebral tenderness. Full range of motion. Skin: Warm, dry with normal turgor. Normal color with no rashes, no lesions, and no evidence of cellulitis. MS/ Extremity: Pulses equal, no cyanosis. Neurovascular intact. Full, normal range of motion. Neuro: Awake and alert, GCS 15, oriented to person, place, time, and situation. Cranial nerves II-XII grossly intact. Motor strength 5/5 in all extremities. Sensory grossly intact. Cerebellar exam normal. Normal gait. Psych: Awake, alert, with orientation to person, place and time. Behavior, mood, and affect are within normal limits. 16:57 ENT: trach stoma. 16:57 Respiratory: the patient does not display signs of respiratory distress, Respirations: normal, Breath sounds: bronchial sounds, wheezin:57 Abdomen/GI: Inspection: abdomen appears normal, Bowel sounds: diminished, Palpation: moderate abdominal tenderness, in the right upper quadrant and left upper quadrant, Vital Signs: 15:56 BP 129 / 89; Pulse 89; Resp 20; Temp 97.7(TE); Pulse Ox 96% on R/A; Weight 79.38 kg; hb Height 5 ft. 11 in. ; Pain 7/10; 18:11 BP 140 / 93; Pulse 80; Resp 20 S; Pulse Ox 100% on R/A; kc6 18:45 BP 140 / 93; Pulse 73; Resp 12 S; Pulse Ox 100% on R/A; kc6 19:30 BP 145 / 95; Pulse 76; Resp 16; Pulse Ox 98% on R/A; Pain 7/10; pf1 20:30 BP 142 / 86; Pulse 77; Resp 17; Temp 98.2; Pulse Ox 96% on R/A; Pain 7/10; pf1 21:16 BP 156 / 91; Pulse 68; Resp 16; Pulse Ox 98% on R/A; pf1 15:56 Body Mass Index 24.41 (79.38 kg, 180.34 cm) hb 15:56 Pain Scale: Adult hb 19:30 Pain Scale: Adult pf1 20:30 Pain Scale: Adult pf1 MDM: 16:11 Patient medically screened. snw 17:58 ED course: Pt has been hospitalized multiple times for pancreatitis. Seen last week and snw CT performed. +pancreatitis. Pt states he improved but this am + recurrence of s/s. Pt request admission. 18:02 Differential diagnosis: cholecystitis, pancreatitis, viral gastroenteritis. Data snw reviewed: vital signs, nurses notes. I considered the following discharge prescriptions or medication management in the emergency department Medications were administered in the Emergency Department. See MAR. Counseling: I had a detailed discussion with the patient and/or guardian regarding the historical points, exam findings, and any diagnostic results supporting the discharge/admit diagnosis, the presence of at least one elevated blood pressure reading (>120/80) during this emergency department visit, lab results, radiology results, the need for further work-up and treatment in the hospital. Response to treatment: There is no appreciated change of the patient's symptoms at this time. 12/31 16:11 Order name: CBC with Diff; Complete Time: 17:07 snw 12/31 16:11 Order name: CMP; Complete Time: 17:20 snw 12/31 16:11 Order name: Lipase; Complete Time: 17:20 snw 12/31 17:00 Order name: SARS-COV-2 RT PCR; Complete Time: 17:48 snw 12/31 18:34 Order name: CT Abdomen - PO Contrast Only snw 12/31 20:19 Order name: CT; Complete Time: 11:41 EDMS 12/31 16:11 Order name: IV Saline Lock; Complete Time: 17:08 snw 12/31 16:11 Order name: Labs collected and sent; Complete Time: 16:50 snw Administered Medications: 17:26 Drug: Haloperidol IVP 2.5 mg/50 mL 2.5 mg IVP once; Place patient on a cardiac care unit nurse kc6 Route: IVP; Site: left antecubital; 18:10 Follow up: Response: No adverse reaction; Nausea is decreased; Vomiting decreased kc6 17:26 Drug: NS 0.9% IV 1000 ml IV at 1 bolus Per protocol; 1000 mL bolus Route: IV; Rate: 1 kc6 bolus; Site: left antecubital; 18:10 Follow up: Response: No adverse reaction; IV Status: Completed infusion; IV Intake: kc6 1000ml 18:19 Drug: NS 0.9% IV 1000 ml IV at 1 bolus Per protocol; 1000 mL bolus Route: IV; Rate: 1 ll1 bolus; Site: left antecubital; 18:47 Follow up: Response: No adverse reaction; IV Status: Completed infusion; IV Intake: kc6 1000ml 18:19 Drug: fentaNYL (PF) IVP 25 mcg IVP once {Note: pain 7/10, RASS 0.} Route: IVP; Site: ll1 left antecubital; 18:47 Follow up: Response: No adverse reaction; Pain is decreased; RASS: Alert and Calm (0) kc6 Disposition: 18:42 I was immediately available on-site in the Emergency Department for consultation in the ms3 care of the patient. Disposition Summary: 12/31/22 17:58 Hospitalization Ordered Notes: Hospitalization Status: Inpatient Admission snw Provider: Bala Anderson Location: Telemetry/MedSurg (Inpatient) snw Condition: Stable snw Problem: an acute exacerbation snw Symptoms: are unchanged snw Bed/Room Type: Standard snw Room Assignment: 209(12/31/22 20:11) cg Diagnosis - Other chronic pancreatitis snw - Upper abdominal pain, unspecified snw Forms: - Medication Reconciliation Form snw - SBAR form snw - Leadership Thank You Letter snw Signatures: Dispatcher [employer] Deepika Mcclain FNP-C FNP-Victor Manuelw Lima Dahl RN RN Ya Acosta RN RN Mariam Brooks RN RN ll1 Irvin Falcon DO DO ms3 Ginny Hudson RN RN kc6 Corrections: (The following items were deleted from the chart) 18:17 17:54 Abdomen Pelvis W Con+CT.RAD.BRZ ordered. EDMS EDMS 20:11 17:58 snw
--- NOTE | 2022-12-31 18:19 | P.HP ---
Certification for Inpatient Patient admitted to: Inpatient With expected LOS: <2 Midnights Patient will require the following post-hospital care: None Practitioner: I am a practitioner with admitting privileges, knowledge of patient current condition, hospital course, and medical plan of care. Services: Services provided to patient in accordance with Admission requirements found in Title 42 Section 412.3 of the Code of Federal Regulations Patient History Date of Service: 01/01/23 History of Present Illness: 52-year-old male with a past medical history of asthma, COPD, throat cancer, pancreatitis, presents to the emergency room with abdominal pain. He reports associated nausea vomiting x1 today. He reports symptoms started today. He reports epigastric pain that is about 4 out of 10. He reports a couple episodes of loose stools. He denies fever, chest pain, shortness of breath,. He reports history of pancreatitis with similar symptoms. He denies recent alcohol use. Denies chest pain, he sees Dr. Justice at [facility] CT AbdomenIMPRESSION: Upper abdominal/ retroperitoneal fat stranding which may relate to acute pancreatitis and/ or adjacent duodenitis, stable since 12/23/2022, within limits of noncontrast evaluation. 6 2 millimeter right lower pole nonobstructing calculus, stable. Laboratory evaluation no leukocytosis, H&H normal, lipase 149, AST, ALT normal, COVID-negative Allergies levofloxacin [From Levaquin] Allergy (Severe, Verified 10/01/20 07:25) Itching/Hives/Rash ampicillin Allergy (Verified 10/01/20 07:25) Itching/Hives/Rash iodine Allergy (Verified 10/01/20 07:25) Hives/Rash Home Medications: Escitalopram [Lexapro*] 20 mg PO DAILY #30 tab 02/16/21 Gabapentin [Neurontin*] 800 mg PO TID 12/11/22 Lipase/Protease/Amylase [Chucho Falcon 12,000 Units Capsule] 1 tab PO TID 12/11/22 Hydrocodone Bit/Acetaminophen [Hydrocodon-Acetaminophen 5-325] 1 tab PO Q8H PRN #15 tab 12/14/22 Pantoprazole Sodium [Protonix] 40 mg PO BID 30 Days #60 tab 12/14/22 Levothyroxine [Synthroid*] 150 mcg PO [id number] 12/31/22 - Past Medical/Surgical History Diabetic: No -: Asthma -: Depression -: Throat cancer status post complete laryngectomy/reconstruction 06/2018 -: Recurrent postop infection -: Chronic pain -: Former tobacco use -: Surgical hypothyroidism -: neuropathy -: Pancreatitis/duodenitis -: Tracheostomy -: Appendectomy -: Complete laryngectomy with reconstruction -: knee surgery bilateral knees -: Thyroidectomy Psychosocial/ Personal History: Patient is . He has 3 children. - Family History Father -: Heart disease, Diabetes Notes: agent orange: immobile Mother -: Cancer Notes: breast ca - Social History Alcohol use: No CD- Drugs: No Caffeine use: Yes Review of Systems 10-point ROS is otherwise unremarkable Physical Examination - Physical Exam General: Alert, In no apparent distress, Oriented x3 HEENT: Atraumatic, Normocephalic Neck: Supple, 2+ carotid pulse no bruit, JVD not distended Respiratory: Clear to auscultation bilaterally, Normal air movement Cardiovascular: No edema, Normal pulses, Regular rate/rhythm, Normal S1 S2 Capillary refill: <2 Seconds Gastrointestinal: Normal bowel sounds, Other (Epigastric tenderness), Tenderness Musculoskeletal: No clubbing, No swelling Integumentary: No rashes, No breakdown Neurological: Normal gait, Normal speech, Normal strength at 5/5 x4 extr - Studies Laboratory Data (last 24 hrs) 12/31/22 12/31/22 16:47 16:47 WBC 7.80 Hgb 16.9 Hct 50.6 H Plt Count 247 Sodium 137 Potassium 3.8 BUN 4 L Creatinine 0.65 L Glucose 91 Total Bilirubin 0.8 AST 18 ALT 32 Alkaline Phosphatase 145 H Lipase 149 H Assessment and Plan - Plan Assessment and plans Acute pancreatitis History of chronic pancreatitis right lower pole nonobstructing calculus, stable History of alcohol use Tobacco use COPD History of laryngectomy with reconstruction Supportive care. Assessment plan Acute pancreatitis/duodenitis N.p.o., IVF, PPI, as needed pain medication and antiemetics. Patient has previous cholecystectomy, normal LFTs, denies alcohol use for the past few months. Unclear etiology but recurrent nature, no signs of, fatty factors. GI consult. Had gastric emptying study 2020 normal. right lower pole nonobstructing calculus, stable 6 2 millimeter right lower pole nonobstructing calculus, stable History of laryngectomy with reconstruction Supportive care. COPD Continue home medications Tobacco abuse Counseled on need for cessation. DVT PPX: Lovenox Code status: Full Diet n.p.o. Discharge Plan: Home Plan to discharge in: 48 Hours - Advance Directives Does patient have a Living Will: No Does patient have a Durable POA for Healthcare: No - Code Status/Comfort Care Code Status: Full Code Physician Review: Patient Assessed, Agree with Above Assessment and Plan Critical Care: No Time Spent Managing Pts Care (In Minutes): 50
[2022-12-31] MEDS ORDERED: FENTANYL CITR 100 MCG/2 ML ONE (18:20)
--- NOTE | 2022-12-31 20:18 | RAD REPORT ---
EXAM DESCRIPTION: CT - Abdomen Wo Contrast - 12/31/2022 7:35 pm CLINICAL HISTORY: ABD PAIN COMPARISON: Abdomen Pelvis Wo Contrast dated 12/11/2022; Abdomen Pelvis W Contrast dated TECHNIQUE: Thin cut axial CT imaging of the abdomen was performed without IV contrast. Multiplanar r eformats were generated and reviewed. All CT scans are performed using dose optimization technique as appropriate and may include automated exposure control or mA/KV adjustment according to patient size. FINDINGS: No suspicious findings in the lung bases. The liver, spleen, and adrenal glands show no suspicious findings. Gallbladder was surgically removed . Swelling and adjacent fat stranding in the region of the pancreatic head and duodenopancreatic groove are stable. Symmetric renal contour, without suspicious parenchymal findings within limits of noncontrast techniq ue. No evidence of hydronephrosis. Right lower pole 2 millimeter calculus is stable. No dilated bowel loops or bowel wall thickening. No free air, free fluid or fluid collections. No her roel, mass or bulky lymphadenopathy. No suspicious bony findings. IMPRESSION: Upper abdominal/ retroperitoneal fat stranding which may relate to acute pancreatitis an d/ or adjacent duodenitis, stable since 12/23/2022, within limits of noncontrast evaluation. 2 millimeter right lower pole nonobstructing calculus, stable.
[2022-12-31] MEDS ORDERED: HYDROMORPHONE HCL 1 MG/ML INJ IV PRN (21:01)
[2022-12-31] MEDS: ONDANSETRON 4 MG/2 ML VIAL IV PRN (21:47)
[2022-12-31] MEDS: NA CHLORIDE 0.9% 1,000 ML IV SCH (21:47)
[2022-12-31 22:05] VITALS: BMI 24.0
[2023-01-01] MEDS: HYDROMORPHONE HCL 1 MG/ML INJ IV PRN ×6 (00:48→22:03)
[2023-01-01] MEDS ORDERED: SODIUM CHLORIDE 0.9% 10ML INJ IV PRN (03:35)
[2023-01-01] MEDS: NA CHLORIDE 0.9% 1,000 ML IV SCH ×3 (04:18→19:54)
[2023-01-01] MEDS: ONDANSETRON 4 MG/2 ML VIAL IV PRN (04:19)
[2023-01-01 06:42] LABS: Absolute Lymphocytes (CBC) 0.9 K/uL (0.7-4.9); Hematocrit 44.3 % (39.6-49.0); Lymphocytes % 18.2 % (15.3-44.8); MCV 94.5 fL (80-100); MPV 7.7 fL (7.6-11.3); Platelets 212 thou/uL (152-406); RBC Red Blood Cell Count 4.68 M/uL (4.33-5.43)
[2023-01-01 06:44] LABS: Specific Gravity 1.012 (1.005-1.030); Urine Bilirubin NEGATIVE (Negative); Urine Blood Negative (Negative); Urine Clarity Clear (Clear); Urine Color Yellow (Yellow); Urine Glucose NEGATIVE (Negative); Urine Protein NEGATIVE (Negative); Urine Urobilinogen 1+ (Normal); Urine pH 5.5 (5.0-7.0)
[2023-01-01 06:59] LABS: Potassium 3.6 mEq/L (3.5-5.1)
[2023-01-01] MEDS: PANTOPRAZOLE 40 MG INJ IVP SCH ×2 (08:35→19:54)
[2023-01-01] MEDS ORDERED: LIDOCAINE 1% MPF 5 ML VIAL ONE (11:25)
[2023-01-01] MEDS ORDERED: propofoL 200 MG/20 ML VIAL IV ONE ×2 (11:25→11:30)
[2023-01-01] MEDS: Ringers Lactate 1,000 ML IV ONE ×2 (11:30→11:55)
--- NOTE | 2023-01-01 14:24 | P.PN ---
Subjective Date of Service: 01/01/23 Patient is complaining of epigastric pain. He rated his pain at 7/10 He is currently n.p.o. Physical Examination - Vital Signs Temperature: 97.8 F Blood Pressure: 120/78 Pulse: 69 Respirations: 14 Pulse Ox (%): 95 - Studies Laboratory Data (last 24 hrs) 12/31/22 12/31/22 16:47 16:47 WBC 7.80 Hgb 16.9 Hct 50.6 H Plt Count 247 Sodium 137 Potassium 3.8 BUN 4 L Creatinine 0.65 L Glucose 91 Total Bilirubin 0.8 AST 18 ALT 32 Alkaline Phosphatase 145 H Lipase 149 H Assessment And Plan - Plan Physical Exam General: Alert, In no apparent distress, Oriented x3 Respiratory: Clear to auscultation bilaterally, Normal air movement Cardiovascular: No edema, Normal pulses, Regular rate/rhythm, Normal S1 S2 Capillary refill: <2 Seconds Gastrointestinal: Normal bowel sounds, Epigastric tenderness Musculoskeletal: No clubbing, No swelling Integumentary: No rashes, No breakdown Neurological: Normal gait, Normal speech, Normal strength at 5/5 x4 extr Diagnosis Acute pancreatitis Duodenitis right lower pole nonobstructing calculus, stable History of alcohol use Tobacco use COPD History of laryngectomy with reconstruction Plan Acute pancreatitis/duodenitis IV fluid IV Protonix Analgesics and antiemetics as needed. GI consulted given duodenitis. EGD done which confirms duodenitis. Continue supportive measures. Start clear liquid diet Right lower pole nonobstructing calculus, stable stable. Outpatient follow-up History of laryngectomy with reconstruction Supportive care. Outpatient follow-up COPD Continue home medications Tobacco abuse Cessation advised.
[2023-01-01] MEDS ORDERED: HYDROCODONE/APAP 5/325 MG TAB PO PRN (14:25)
--- NOTE | 2023-01-01 14:42 | CON ---
Date of Consultation: 01/01/2023 Reason For Consultation: Recurrent idiopathic pancreatitis and questionable duodenitis versus pancre atitis noted on CT scan. History Of Present Illness: The patient presented to the hospital with midepigastric, right upper qu adrant and left upper quadrant pain 10/10, now down to approximately 7/10 with nausea, vomiting, feve rs, chills. The patient's calcium is 7.9, triglycerides 102. MRCP on 12/12/2022 revealed cholecyste ctomy changes with normal pancreatic and biliary tree with pancreatitis findings. No other etiologie s for his recurrent pancreatitis were noted. Of note, the patient does not have family members with pancreatitis either. No trauma, infections, or other. Past Medical History: Significant for laryngeal carcinoma, status post laryngectomy, reconstruction and tracheostomy. He has had a history of hypothyroidism, status post surgery for thyroid, appendect temo, bilateral leg and knee repairs. He has asthma, COPD, depression, prior tobacco use, neuropathy, and recurrent pancreatitis. Allergies: THE PATIENT HAS ALLERGIES TO LEVAQUIN, AMPICILLIN, AND IODINE. Medications: At home include Lexapro, Neurontin, Creon, [place], Protonix, Synthroid. Social History: He is , 4 children. No tobacco. Family History: Father of COVID. Mother of breast cancer. No family members with pancrea titis. Review of Systems: The patient has midepigastric, right upper and left upper quadrant pain with nausea, vomiting, fevers , chills. No melena, hematochezia, hematemesis, or coffee-grounds emesis. No change in bowel habits , diarrhea, constipation, hemoptysis, epistaxis, lower extremity edema, muscle aches, joint aches. Jorge ricardo does have a history of neuropathy, however. Physical Examination: Vital Signs: 5 feet 11 inches, 172 pounds, BMI of 24 kg/sq m. He has temperature 97.1 degrees Fahre nheit, pulse 62, respirations 16, blood pressure 131/68, O2 saturation 95%. General: He is a well-nourished, well-developed male, lying in bed, no acute distress. HEENT: Normocephalic, atraumatic. Anicteric. Pupils equal, round, and reactive to light. Extraocu lar movements intact. Oropharynx clear. Neck: Supple. No masses. Respirations: Clear to auscultation bilaterally. Cardiac: Regular rate and rhythm. No gallops or rubs. Abdomen: Positive bowel sounds. Soft, nondistended. Pain in the midepigastric, left upper quadrant , right upper quadrant area. It is mild, but no peritoneal Minor sign. No rebound. Extremities: No clubbing, cyanosis, or edema. 2+ pulses. Neuro: Alert and oriented x3. Grossly nonfocal. 5/5 motor strength. Sensation intact to light lisa except for he cannot speak due to laryngectomy in the past due to laryngeal cancer. Laboratory Data: White count is 4.9 down from 7.8 yesterday, hemoglobin of 14.9, hematocrit of 44.3, MCV of 95, platelet count of 212, polys 67%, lymphocytes 18%, monocytes 11%, eosinophils 3%. He has a sodium of 140, potassium 3.6, chloride 111, bicarb 29, BUN of 4, creatinine of 0.6, glucose 86, ca lcium 7.9, magnesium 2.0, total bilirubin of 0.8, AST of 18, ALT 32, alkaline phosphatase 145, total protein 7.2, albumin 3.1. Triglycerides 102, cholesterol 128, LDL of 81, lipase 149. UA; 1+ urobili nogen, otherwise negative. COVID-[address] of the abdomen and pelvis revealed duo denitis versus pancreatitis and therefore consultation was made by primary care and trying to see if possibly the patient has duodenitis with ulcer or that it might be leading to his recurrent pancreati tis. Also, he had a 2 mm right kidney stone as well, which is stable. Impression: 1.The patient with recurrent midepigastric, right upper quadrant pain, recurrent pancreatitis, etiol ogy idiopathic. However, the patient on CT scan noted to have duodenitis and pancreatitis, but duode nitis may be greater than the pancreatitis suggesting possible ulcers and may be causing the recurren t pancreatitis or other. Therefore, we will proceed with EGD evaluation. Of note, the patient's julieta cium is 7.9, triglycerides . MRCP revealed cholecystectomy changes, normal pancreatic duct , biliary tree, but with pancreatitis and he is status post laparoscopic cholecystectomy. 2.Recurrent idiopathic pancreatitis. 3.History of laryngeal cancer, status post laryngectomy, reconstruction, tracheostomy, thyroid disea se with thyroidectomy and subsequent surgical hypothyroidism, asthma, chronic obstructive pulmonary d isease, depression, prior tobacco use, appendectomy, knee surgeries bilaterally, prior neuropathy, an d recurrent pancreatitis. Recommendations: IV fluids, EGD, and PPI therapy. ALLI Voice ID: [id number] Report ID: [id number]
[2023-01-01 16:14] VITALS: O2SAT 100
[2023-01-01] MEDS: LIPASE/PROTEASE/AMYLASE CAP PO SCH ×2 (17:04→19:54)
[2023-01-01] MEDS: ESCITALOPRAM 20 MG TAB PO SCH (17:04)
[2023-01-02] MEDS: HYDROMORPHONE HCL 1 MG/ML INJ IV PRN ×3 (02:05→10:52)
[2023-01-02] MEDS: NA CHLORIDE 0.9% 1,000 ML IV SCH ×3 (02:07→13:01)
[2023-01-02] MEDS ORDERED: LEVOTHYROXINE SOD 0.075 MG TAB PO SCH (06:00)
[2023-01-02] MEDS: PANTOPRAZOLE 40 MG INJ IVP SCH (09:35)
[2023-01-02] MEDS: ESCITALOPRAM 20 MG TAB PO SCH (09:36)
[2023-01-02] MEDS: LIPASE/PROTEASE/AMYLASE CAP PO SCH ×2 (09:36→14:23)
[2023-01-02 10:43] LABS: Absolute Lymphocytes (CBC) 0.7 K/uL (0.7-4.9); Hematocrit 44.9 % (39.6-49.0); Lymphocytes % 12.5 % (15.3-44.8); MCV 94.4 fL (80-100); MPV 8.1 fL (7.6-11.3); Platelets 210 thou/uL (152-406); RBC Red Blood Cell Count 4.76 M/uL (4.33-5.43)
[2023-01-02 10:54] LABS: Potassium 3.7 mEq/L (3.5-5.1)
--- NOTE | 2023-01-02 13:27 | P.DS ---
Admission Date: 12/31/22 Discharge Date: 01/02/23 Disposition: ROUTINE DISCHARGE Discharge Condition: FAIR Brief History of Present Illness: 52-year-old male with a past medical history of asthma, COPD, throat cancer, pancreatitis, presented to the emergency room with abdominal pain. He reported associated nausea vomiting x1 today. He reported epigastric pain that is about 4 out of 10. He reported a couple episodes of loose stools. He denies fever, chest pain, shortness of breath,. He reported history of pancreatitis with similar symptoms. He denied recent alcohol use. CT Abdomen showed Upper abdominal/ retroperitoneal fat stranding which may relate to acute pancreatitis and/ or adjacent duodenitis, stable since 12/23/2022, within limits of noncontrast evaluation. 6 2 millimeter right lower pole nonobstructing calculus, stable. Laboratory evaluation no leukocytosis, H&H normal, lipase 149, AST, ALT normal, COVID-negative. Patient was hospitalized for further management Hospital Course: Diagnosis Acute pancreatitis Duodenitis right lower pole nonobstructing calculus, stable History of alcohol use Tobacco use COPD History of laryngectomy with reconstruction Patient admitted to the medical floor and the following medical problems addressed Plan Acute pancreatitis/duodenitis Treated IV fluid IV Protonix Analgesics and antiemetics as needed. GI consulted given duodenitis. EGD done which confirmed duodenitis. Patient treated with supportive treatment Started clear liquid diet and advance to full liquid which he tolerated. Right lower pole nonobstructing calculus, stable stable. Outpatient follow-up History of laryngectomy with reconstruction Supportive care. Outpatient follow-up Vital Signs/Physical Exam: Temp Pulse Resp BP Pulse Ox 97.4 F 61 18 133/80 94 01/02/23 12:00 01/02/23 12:00 01/02/23 12:00 01/02/23 12:00 01/02/23 12:00 General: Alert, In no apparent distress, Oriented x3 HEENT: Mucous membr. moist/pink Neck: JVD not distended, Other (Tracheostomy hole-anterior neck) Respiratory: Clear to auscultation bilaterally, Normal air movement Cardiovascular: No edema, Regular rate/rhythm, Normal S1 S2 Gastrointestinal: Normal bowel sounds, Soft and benign, Non-distended, No tenderness Musculoskeletal: No swelling Neurological: Normal strength at 5/5 x4 extr Laboratory Data at Discharge: WBC 5.20 thou/uL (4.3-10.9) 01/02/23 10:27 Hgb 15.1 g/dL (13.6-17.9) 01/02/23 10:27 Hct 44.9 % (39.6-49.0) 01/02/23 10:27 Plt Count 210 thou/uL (152-406) 01/02/23 10:27 Sodium 139 mEq/L (136-145) 01/02/23 10:27 Potassium 3.7 mEq/L (3.5-5.1) 01/02/23 10:27 BUN 3 mg/dL (7-18) L 01/02/23 10:27 Creatinine 0.66 mg/dL (0.70-1.30) L 01/02/23 10:27 Glucose 114 mg/dL (74-106) H 01/02/23 10:27 Magnesium 2.0 mg/dL (1.6-2.4) 01/02/23 10:27 Total Bilirubin 0.8 mg/dL (0.2-1.0) 12/31/22 16:47 AST 18 U/L (15-37) 12/31/22 16:47 ALT 32 U/L (16-61) 12/31/22 16:47 Alkaline Phosphatase 145 U/L (45-117) H 12/31/22 16:47 Triglycerides 102 mg/dL (<150) 01/01/23 06:32 Cholesterol 128 mg/dL (<200) 01/01/23 06:32 HDL Cholesterol 27 mg/dL (40-60) L 01/01/23 06:32 Cholesterol/HDL Ratio 4.74 01/01/23 06:32 Lipase 149 U/L (13-75) H 12/31/22 16:47 Home Medications: Escitalopram [Lexapro*] 20 mg PO DAILY #30 tab 02/16/21 Gabapentin [Neurontin*] 800 mg PO TID 12/11/22 Lipase/Protease/Amylase [[place]o Falcon 12,000 Units Capsule] 1 tab PO TID 12/11/22 Hydrocodone Bit/Acetaminophen [Hydrocodon-Acetaminophen 5-325] 1 tab PO Q8H PRN #15 tab 12/14/22 Levothyroxine [Synthroid*] 150 mcg PO [id number] 12/31/22 Pantoprazole Sodium [Protonix] 40 mg PO BID 30 Days #60 tab 01/02/23 New Medications: Pantoprazole Sodium [Protonix] 40 mg PO BID 30 Days #60 tab Physician Discharge Instructions: Full liquid diet for the next couple of days and advance as tolerated. Activity: Ad get Time spent managing pt's care (in minutes): 35
[2023-01-02] MEDS ORDERED: POTASSIUM CL SA 10 MEQ TAB PO ONE (14:00)
[2023-01-02 16:53] VITALS: BP 157/87; TEMP 97.3
== END 2023-01-02 16:20 | disposition home or self-care (01) | DRG 391 ==
LOC: ER 15:36 → ERHOLD 19:01 → 2ND 20:16
PROVIDERS: ADMIT Internal Medicine; ATTEND Internal Medicine
PROC: 0DB78ZX Excision of Stomach, Pylorus, Via Natural or Artificial Opening Endoscopic, Diagnostic (ICD-10-PCS; principal; 2023-01-01 10:00)
DX: K29.80 Duodenitis without bleeding (principal); K85.00 Idiopathic acute pancreatitis without necrosis or infection; K86.1 Other chronic pancreatitis; K44.9 Diaphragmatic hernia without obstruction or gangrene; J44.9 Chronic obstructive pulmonary disease, unspecified; Z88.1 Allergy status to other antibiotic agents; Z71.6 Tobacco abuse counseling; Z90.49 Acquired absence of other specified parts of digestive tract; Z79.890 Hormone replacement therapy; Z79.899 Other long term (current) drug therapy; Z91.041 Radiographic dye allergy status; Z91.048 Other nonmedicinal substance allergy status; Z20.822 Contact with and (suspected) exposure to COVID-19
CPT/HCPCS: 36415; 74150; 80048; 80053; 80061; 81003; 83690; 83735; 85025; 87635; 88305; 88312; 96361; 96374; 96375; 99285; C9113; J1170; J1630; J2001; J2405; J2704; J3010; J7030; J7120

== ENCOUNTER 2023-02-04 19:09 | Inpatient (IN) | payer OTHER ==
--- OUTSIDE RECORDS SUMMARY | 2023-02-04 19:22 | XMS REPORT | Continuity of Care Document ---
:1970 Author Organization [facility] t Address [address] [place] [address] [place] [id number] Care Team Providers Name Role Phone No, Pcp [facility] Primary Care Physician Unavailable BRODIE JANSEN Attending Clinician Unavailable HAU JUSTICE Attending Clinician Unavailable LUCY MEANS Attending Clinician Unavailable LUCY MEANS Attending Clinician Unavailable ROSS GUNTER Attending Clinician Unavailable ROSS GUNTER Attending Clinician Unavailable Lab, Ang - Db Attending Clinician Unavailable Hua Brothers Attending Clinician Doctor Unassigned, [place] Attending Clinician Unavailable Anderson Francisco RN Attending Clinician Unavailable DERIC SANTOS Attending Clinician Unavailable Tez Moore Attending Clinician Deric Santos DO Attending Clinician TITUS MARIN Attending Clinician Unavailable Singer KHALIL, Titus Attending Clinician Jenniffer Olivier RN Attending Clinician Unavailable RADU TREADWELL Attending Clinician Unavailable Markell [place], Perla Attending Clinician Radu Treadwell MD Attending Clinician Josh Hodge MD Attending Clinician Lucy Shaffer MD Attending Clinician Jh Carroll LVN Attending Clinician Unavailable Unknown, Attending Attending Clinician Unavailable UNKNOWN, ATTENDING Attending Clinician Unavailable CHETNA BARNARD Attending Clinician Unavailable Evon MANAGER MEDIA RELATIONS, Chetna Attending Clinician BLAIR GALINDO Attending Clinician Unavailable BLAIR GALINDO Attending Clinician Unavailable HORTENSIA SHANKS Attending Clinician Unavailable Yuliana INMAN, Pam Valiente Attending Clinician LUCY SHAFFER Attending Clinician Unavailable Taras US Attending Clinician Unavailable Taras Mckeon Attending Clinician MAURIZIO DESAI Attending Clinician Unavailable YOSEF NAPIER Attending Clinician Unavailable Sayra Land RN Attending Clinician Unavailable ANASTASIA KRISHNAN Attending Clinician Unavailable Lennox Crystal MD Attending Clinician Anastasia Krishnan MD Attending Clinician MOSHE HANEY Attending Clinician Unavailable Urszula Baeza MD Attending Clinician Moshe Haney MD Attending Clinician [facility]iano [facility] Attending Clinician Yefri Claudio MD Attending Clinician Shelby Coronel Attending Clinician Yosef Napier MD Attending Clinician Debra Pearce RN Attending Clinician PAM BRIDGES Attending Clinician Unavailable CATALINA COSTA Attending Clinician Unavailable Catalina Costa DO Attending Clinician Anupama MANAGER MEDIA RELATIONS, Malcolm B Attending Clinician MALCOLM ALTMAN Attending Clinician Unavailable Pob, Adc Lab Main Attending Clinician Unavailable Jez MANAGER MEDIA RELATIONS, Mike Attending Clinician MIKE STORY Attending Clinician Unavailable Zack INMAN, Nyla Nguyen Attending Clinician [phone] Adri ALBARRAN, Kary Ruiz Attending Clinician KARISHMA [...] Trevor INMAN, Preston Anna Attending Clinician Jaquelin MANAGER MEDIA RELATIONS, Eligio Aguilar Attending Clinician Kaela MANAGER MEDIA RELATIONS, Lizet Ruiz Attending Clinician Maurice Chaudhary MD Attending Clinician Provider, [facility] Attending Clinician Unavailable Caterina SANTOS, oRsa Arndt Attending Clinician Unavailable Apolinar GONZALEZ, Nidhi Duncan Attending Clinician NIDHI JIANG Attending Clinician Unavailable Sami INMAN, Maurizio Attending Clinician LEXIE DRAKE Attending Clinician Unavailable Vidal INMAN, Lexie Whiteside Attending Clinician Sharon INMAN, Cain Li Attending Clinician JENNIFER FRAIER Attending Clinician Unavailable REID ORDOÑEZ Attending Clinician [...] Clinician Maurice Chaudhary MD Admitting Clinician MAURIZIO DESAI Admitting Clinician Unavailable JENNIFER FRAIRE Admitting Clinician Unavailable MELVIN HUERTA Admitting Clinician Unavailable Payers Payer Name Policy Type Policy Number Effective Date Expiration Date [facility] [id number] 2018 MEDICAID 00:00:00 [employer] MEDICARE [id number] 2020 00:00:00 MEDICARE PART A \\T\\ [id number] 2019 B 00:00:00 MEDICAID OF [place] [id number] Problems Condition Condition Condition Status Onset Resolution Last Treating Co mments Source Name Details Category Date Date Treatment Clinician Date Calculus Calculus Disease Active Unive rs of right of right 12-18 ity of kidney kidney 00:00: [address] Elevated Elevated Disease Active Unive rs liver liver 12-18 ity of function function 00:00: [place] tests tests [address] [place] [address] Current Current Disease Active Univers every day every day 12-18 ity of smoker smoker 00:00: [address] Abdominal Abdominal Disease Active Uni vers pain, pain, 8-06 ity of unspecifie unspecifie [place] 00 Medical abdominal abdominal Bran ch location location Obesity Obesity Disease Active Univers (BMI (BMI 8-06 ity of 30-39.9) 30-39.9) 00:00: [place] [facility] Low libido Low libido Disease Active U nivers 6-05 ity of 00:00: [place] [facility] Need for Need for Disease Active Unive rs vaccinatio vaccinatio 6-05 it y of n n 00:00: [place] [facility] Other Other Disease Active Univers seborrheic seborrheic 11-27 it y of dermatitis dermatitis 00:00: [place] [facility] Acquired Acquired Disease Active Unive rs hypothyroi hypothyroi 11-27 it y of dism dism 00:00: [place] [facility] Neuropathy Neuropathy Disease Active U nivers involving involving 8 ity of both lower both lower 00:00: [place] extremitie extremitie 00 Me dical s s Branch Esophagiti Esophagiti Disease Active U nivers s s 11-27 ity of 00:00: [place] [facility] Chronic Chronic Disease Active Univers obstructiv obstructiv 11-27 it y of e e 00:00: [place] pulmonary pulmonary 00 Medi julieta disease, disease, Branch unspecifie unspecifie d COPD d COPD type type Anxiety Anxiety Disease Active Univers and and 11-27 ity of depression depression 00:00: [place] [facility] Encounter Encounter Disease Active Uni vers to to 8 ity of establish establish 00:00: [facility] care care Medical Branch Cellulitis Cellulitis Disease Active 2020-04 U nivers 1-07 ity of 00:00: [place] [facility] Pancreatit Pancreatit Disease Active 2020-04 U nivers is, is, 0-30 ity of recurrent recurrent 00:[place] E46 E46 Disease Active Univers Unspecifie Unspecifie 9-17 it y of d severe d severe 00:00: [place] protein-ca protein-ca 00 Ri dical orestes orestes Branch 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 Added automatic ally from request for surgery [id number] Acute Acute Disease Active 2019-04 Univers pancreatit pancreatit 0-30 it y of is is 00:00: [place] 00 Medical Branch Epigastric Epigastric Disease Active 2019-04 Overview : Univers pain pain 0-29 Formattin ity of 00:00: g of this [place] 00 note Medical might be Branch different from the original. Added automatic ally from request for surgery [id number] Dysphagia, Dysphagia, Disease Active 2019-04 Overview : Univers unspecifie unspecifie 0-29 Formattin ity of d type d type 00:00: g of this [place] 00 note Medical might be Branch different from the original. Added automatic ally from request for surgery [id number] Pancreatit Pancreatit Disease Active 2019-04 U nivers is is 0-07 ity of 00:00: [place] 00 Medical Branch Dehydratio Dehydratio Disease Active 2020- U nivers n n 0-06 ity of 00:00: [place] 00 Medical Branch Aphonia Aphonia Disease Active 2020-0 Univers 1-13 ity of 00:00: [place] [address] Medical Branch Neck Neck Disease Active 2019- [...] laryngecto 4-16 Emily kes my my 00:00: [facility] 00 Center S/P S/P Disease [...] Laryngeal Problem Active Com mon cancer cancer [facility] Tracheosto Tracheosto Problem Active Arash hernandez my care my care [facility] Chronic Chronic Problem Active Common obstructiv obstructiv Sp amada e e - [facility] pulmonary pulmonary [facility] disease, disease[facility] unspecifie unspecifie Me dical d COPD d COPD Center type type Seasonal Seasonal Problem Active Commo n allergies allergies Spir it - [facility] GERD GERD Problem Active Common without without Spirit esophagiti esophagiti - [facility] s [facility] Essential Essential Problem Active Com mon (primary) (primary) Spir it hypertensi hypertensi - [facility] on on [facility] Polyneurop Polyneurop Problem Active Arash hernandez athy in athy in Spirit diseases diseases - [facility] classified classified [facility] Postablati Postablati Problem Active Arash hernandez ve ve Spirit hypothyroi hypothyroi - [facility] dism dism [facility] Malignant Malignant Problem Active Com mon (primary) (primary) Spir it neoplasm, neoplasm, - [facility] I unspecifie unspecifie [facility] Reactive Reactive Problem Active Commo n depression depression Sp amada - [facility] Allergies, Adverse Reactions, Alerts Allergy Allergy Status [...] 5-13 ity of 00:00: [place] 00 Medical [place] Ampicill Propensi Active Hives, Rash 2019-0 C [...] 2019-0 Other Univer s ins ty to 411 reaction( ity of adverse 00:00: s): [place] reaction 00 Unknown - Medic al s See Branch comments PENICILL Drug Active Med Hives 2019-0 Univers INS Class 4-11 ity of 00:00: [place] [facility] LEVOFLOX DRUG Active Low Hives 2019-0 Univers ACIN INGREDI 4-11 ity of 00:00: [address] Iodine Adverse Active vomiting Common Reaction Spirit - [facility] Social History Social Habit Start Date Stop Date Quantity Comments Source History of tobacco Cigarette Smoker [facility] use [facility] Gender identity Universit y of [facility] Sexual orientation Univer sit of [facility] History SDOH [facility] Alcohol Std Drinks Medica l Center History SDOH [facility] Alcohol Binge Medical Ant ter Tobacco use and 2022-11-13 2022-11-13 Smokeless tobacco Un iversity of exposure 00:00:00 00:00:00 non-user [facility] Exposure to 2022-08-18 2022-08-28 Not sure [facility] SARS-CoV-2 (event) 00:00:00 15:38:00 [facility] History of Social 2022-08-28 2022-08-28 Univers ity of function 00:00:00 00:00:00 [facility] Alcohol Comment 2020-08-22 2020-08-2204/05 of corinna per [facility] 00:00:00 00:00:00 week [facility] Education 2020-01-29 2020-01-29 21 University of 00:00:00 00:00:00 [place] [facility] History SDOH 2020-01-29 2020-01-29 5 University o f Financial 00:00:00 00:00:00 [place] [facility] History SDOH Food 2020-01-29 2020-01-29 1 Univers ity of Worry 00:00:00 00:00:00 [place] [facility] History SDOH Food 2020-01-29 2020-01-29 1 Univers ity of Scarcity 00:00:00 00:00:00 [place] [facility] History SDOH 2020-01-29 2020-01-29 2 Pep o Transport Med 00:00:00 00:00:00 [place] Medic al [facility] History SDHI 2020-01-29 2020-01-29 2 Pep o Transport Non-Med 00:00:00 00:00:00 [place] M edical [facility] Alcohol intake 2018-07-15 2018-07-15 Current non-drinker [facility] 00:00:[facility] 00:00:00 of alcohol [facility] Center (finding) Tobacco Comment 2018-06-06 2018-06-[address] [facility] 00:00:00 00:00:00 Medical Center History [facility] 2018-06-06 2018-06-[address] [facility] Alcohol Frequency 00:00:00 00:00:00 [facility] Center Sex Assigned At [address] [facility] kes 00:00:00 00:00:00 [facility] Center Smoking Status Start Date Stop Date Source Occasional tobacco 2022-11-13 00:00:00 [facility] smoker Medical Branch Ex-smoker 2021-11-27 00:00:00 2021-11-27 Pep o [facility] 00:00:00 Medical Branch Medications Ordered [...] Until Discontinu ed, Routine ondansetron 2022- Yes [id number] 4mg Take 1 Univers 4 mg 11-30 tablet by ity of disintegrat 00:00: 04:59 [place] tablet 00 :00 every 8 Medica l (eight) Branch hours as needed for Nausea and Vomiting (N/V) for up to 30 days. ondansetron 2022- Yes [id number] 4mg Take 1 Univers 4 mg 9-01 10-02 tablet by ity of disintegrat 00:00: 04:59 [place] tablet 00 :00 every 8 Medica l (eight) Branch hours as needed for Nausea and Vomiting (N/V) for up to 30 days. ondansetron 2022- Yes [id number] 4mg Take 1 Univers 4 mg 9-01 10-02 tablet by ity of disintegrat 00:00: 04:59 [place] tablet 00 :00 every 8 Medica l (eight) Branch hours as needed for Nausea and Vomiting (N/V) for up to 30 days. ondansetron 2022- Yes [id number] 4mg Take 1 Univers 4 mg 9-01 10-02 tablet by ity of disintegrat 00:00: 04:59 [place] tablet 00 :00 every 8 Medica l (eight) Branch hours as needed for Nausea and Vomiting (N/V) for up to 30 days. ondansetron 2022- Yes [id number] 4mg Take 1 Univers 4 mg 9-01 10-02 tablet by ity of disintegrat 00:00: 04:59 [place] tablet 00 :00 every 8 Medica l (eight) Branch hours as needed for Nausea and Vomiting (N/V) for up to 30 days. ondansetron 2022- Yes [id number] 4mg Take 1 Univers 4 mg 9-01 10-02 tablet by ity of disintegrat 00:00: 04:59 [place] tablet 00 :00 every 8 Medica l (eight) Branch hours as needed for Nausea and Vomiting (N/V) for up to 30 days. ondansetron 2022- Yes [id number] 4mg Take 1 Univers 4 mg 9-01 10-02 tablet by ity of disintegrat 00:00: 04:59 [place] tablet 00 :00 every 8 Medica l (eight) Branch hours as needed for Nausea and Vomiting (N/V) for up to 30 days. ondansetron 2022- Yes [id number] 4mg Take 1 Univers 4 mg 9-01 10-02 tablet by ity of disintegrat 00:00: 04:59 [place] tablet 00 :00 every 8 Medica l (eight) Branch hours as needed for Nausea and Vomiting (N/V) for up to 30 days. ondansetron 2022- Yes [id number] 4mg Take 1 Univers 4 mg 9-01 10-02 tablet by ity of disintegrat 00:00: 04:59 [place] tablet 00 :00 every 8 Medica l (eight) Branch hours as needed for Nausea and Vomiting (N/V) for up to 30 days. ondansetron 2022- Yes [id number] 4mg Take 1 Univers 4 mg 9- 10-02 tablet by ity of disintegrat 00:00: 04:59 [place] tablet 00 :00 every 8 Medica l (eight) Branch hours as needed for Nausea and Vomiting (N/V) for up to 30 days. ondansetron 2022- Yes [id number] 4mg Take 1 Univers 4 mg 9- [...] 1{tbl} Take 1 U nivers -acetaminop -04 09-09 tablet by it y of hen [...] dose [place] tablet 20 00 on [facility] Medical mg 11/29/22 at Branch 0900, Until Discontinu ed, Routine ARIPiprazol Yes 5mg 5 mg, [facility] (ABILIFY) 11-29 Oral, ity of tablet 5 mg 14:00: [place], [place] First [place] Medical on [place] Branch 11/29/22 at 0900, Until Discontinu ed, Routine enoxaparin 0 Yes 40mg 40 mg, [facility] (LOVENOX) 11-29 Subcutaneo ity of injection 14:00: [place], DAILY, [place] 40 mg 00 First dose Medical on [facility] Branch 11/29/22 at 0900, Until Discontinu ed, Routine lipase-prot 0 Yes 1{capsu 1 capsule, Univers ease-amylas 11-29 le} Oral, TID ity of e (CREON) 13:00: MEALS, [place] 12,000-38,0 00 First dose Me dical 00 -60,000 on [facility] Branch unit 11/29/22 at capsule 1 0800, capsule Until Discontinu ed, Routine levothyroxi Yes 150ug 150 mcg, U nivers ne 11-29 Oral, ity of (SYNTHROID) 11:00: QAM-0600, [place] tablet 150 00 First dose Med ical mcg on [facility] Branch 11/29/22 at 0600, Until Discontinu ed, Routine gabapentin 0 Yes 800mg 800 mg, Uni vers (NEURONTIN) 11-29 Oral, TID, it y of tablet 800 01:15: First dose [place] mg 00 on Sat Medical 11/28/22 at Branch 2015, Until Discontinu ed, Routine albuterol 0 Yes 2{puff} 2 Puff, Un maddie (VENTOLIN) 11-29 Inhalation ity of inhaler 2 00:58: , Q6HPRN, Real as Puff 39 Starting Medical on Sat Branch 11/28/22 at 1958, Until Discontinu ed, Routine, Wheezing, Shortness of Breath lactated 2022-0 202- No 1000mL at 200 [facility] ers ringers IV 11-28 mL/hr, ity of infusion 22:30: 23:56 1,000 mL, Real as 1,000 mL 00 :57 IV Medical Infusion, Branch CONTINUOUS , Starting on Sat11/28/22 at 1730, Until [place] 11/29/22 at 1856, Routine ondansetron 0 Yes 4mg 4 mg, Slow [...] at 1715, Routine, Pain (scale 7-10) HYDROcodone 0 2022- Yes 1{tbl} 1 tablet, Univers -acetaminop 11-28 09-01 Oral, ity of hen (NORCO 22:16: 22:15 Q6HPRN, Real as 5) 5-325 mg 03 :03 Starting Medi julieta tablet 1 on Sat Branch tablet 11/28/22 at 1716, Until 11/30/22 at 1715, Routine, Pain (scale 4-6) acetaminoph 0 Yes 650mg 650 mg, Un maddie en 11-28 Oral, ity of (TYLENOL) 22:16: Q6HPRN, [place] tablet 650 01 Starting Medic al mg on Sat Branch 11/28/22 at 1716, Until Discontinu ed, Routine, Pain (scale 1-3) NaCl 0.9% 2022-2022- No 1000mL at 999 Uni vers (NS) bolus 11-28 08-30 mL/hr, ity of infusion 22:15: 22:33 1,000 mL, Real as 1,000 mL 00 :00 IV Medical Infusion, Branch ONCE, 1 dose, On Sat11/28/22 at 1715, KENIA ondansetron 0 2022- No 4mg 4 mg, Slow Univers (ZOFRAN 11-2830 IV Push, ity of (PF)) 22:15: 21:29 ONCE, 1 [place] injection 4 00 :00 dose, On Medi julieta mg Wed Branch 11/28/22 at 1715, KENIA morpHINE (4 0 2022- No 4mg 4 mg, Slow Univers mg/mL) 11-28 08-30 IV Push, ity of injection 4 22:15: 21:29 ONCE, 1 [place] mg 00 :00 dose, On Medical Wed Branch 11/28/22 at 1715, KENIA ondansetron 2022-0 Yes [id number] 4mg Take 1 Univers 4 mg 8-17 tablet by ity of disintegrat 00:00: mouth [place] ing tablet 00 every 8 Medica l (eight) Branch hours as needed for Nausea and Vomiting (N/V). albuterol 2022-0 Yes [id number] 2{puff} Inhale 2 Univers 90 8-17 Puffs ity of mcg/actuati 00:00: every 6 Real as on inhaler 00 (six) Medical hours as Branch needed for Wheezing or Shortness of Breath. ARIPiprazol 2022-0 Yes [id number] 5mg Take 1 Univers e 5 mg 8-17 tablet by ity of tablet 00:00: mouth in [place] 00 the Medical morning. Branch ondansetron 2022-0 Yes [id number] 4mg Take 1 Univers 4 mg 8-17 tablet by ity of disintegrat 00:00: mouth [place] ing tablet 00 every 8 Medica l (eight) Branch hours as needed for Nausea and Vomiting (N/V). albuterol 2022-0 Yes [id number] 2{puff} Inhale 2 Univers 90 8-17 Puffs ity of mcg/actuati 00:00: every 6 Real as on inhaler 00 (six) Medical hours as Branch needed for Wheezing or Shortness of Breath. ARIPiprazol 2022-0 Yes [id number] 5mg Take 1 Univers e 5 mg 8-17 tablet by ity of tablet 00:00: mouth in [place] 00 the Medical morning. Branch ondansetron 2022-0 Yes [id number] 4mg Take 1 Univers 4 mg 8-17 tablet by ity of disintegrat 00:00: mouth [place] ing tablet 00 every 8 Medica l (eight) Branch hours as needed for Nausea and Vomiting (N/V). albuterol 0 Yes [id number] 2{puff} Inhale 2 Univers 90 8-17 Puffs ity of mcg/actuati 00:00: every 6 Real as on inhaler 00 (six) Medical hours as Branch needed for Wheezing or Shortness of Breath. ARIPiprazol 0 Yes [id number] 5mg Take 1 Univers e 5 mg 8-17 tablet by ity of tablet 00:00: mouth in [place] 00 the Medical morning. Branch ondansetron 0 Yes [id number] 4mg Take 1 Univers 4 mg 8-17 tablet by ity of disintegrat 00:00: mouth [place] ing tablet 00 every 8 Medica l (eight) Branch hours as needed for Nausea and Vomiting (N/V). albuterol 2022-0 Yes [id number] 2{puff} Inhale 2 Univers 90 8-17 Puffs ity of mcg/actuati 00:00: every 6 Real as on inhaler 00 (six) Medical hours as Branch needed for Wheezing or Shortness of Breath. ARIPiprazol 2022-0 Yes [id number] 5mg Take 1 Univers e 5 mg 8-17 tablet by ity of tablet 00:00: mouth in [place] 00 the Medical morning. Branch albuterol 2022-0 Yes [id number] 2{puff} Inhale 2 Univers 90 8-17 Puffs ity of mcg/actuati 00:00: every 6 Real as on inhaler 00 (six) Medical hours as Branch needed for Wheezing or Shortness of Breath. ARIPiprazol 2022-0 Yes [id number] 5mg Take 1 Univers e 5 mg 8-17 tablet by ity of tablet 00:00: mouth in [place] 00 the Medical morning. Branch albuterol 2022-0 Yes [id number] 2{puff} Inhale 2 Univers 90 8-17 Puffs ity of mcg/actuati 00:00: every 6 Real as on inhaler 00 (six) Medical hours as Branch needed for Wheezing or Shortness of Breath. ARIPiprazol 2022-0 Yes [id number] 5mg Take 1 Univers e 5 mg 8-17 tablet by ity of tablet 00:00: mouth in [place] 00 the Medical morning. Branch albuterol 0 Yes [id number] 2{puff} Inhale 2 Univers 90 8-17 Puffs ity of mcg/actuati 00:00: every 6 Real as on inhaler 00 (six) Medical hours as Branch needed for Wheezing or Shortness of Breath. ARIPiprazol 0 Yes [id number] 5mg Take 1 Univers e 5 mg 8-17 tablet by ity of tablet 00:00: mouth in [place] 00 the Medical morning. Branch albuterol 0 Yes [id number] 2{puff} Inhale 2 Univers 90 8-17 Puffs ity of mcg/actuati 00:00: every 6 Real as on inhaler 00 (six) Medical hours as Branch needed for Wheezing or Shortness of Breath. ARIPiprazol 0 Yes [id number] 5mg Take 1 Univers e 5 mg 8-17 tablet by ity of tablet 00:00: mouth in [place] 00 the Medical morning. Branch albuterol 0 Yes [id number] 2{puff} Inhale 2 Univers 90 8-17 Puffs ity of mcg/actuati 00:00: every 6 Real as on inhaler 00 (six) Medical hours as Branch needed for Wheezing or Shortness of Breath. ARIPiprazol 2022-0 Yes [id number] 5mg Take 1 Univers e 5 mg 8-17 tablet by ity of tablet 00:00: mouth in [place] 00 the Medical morning. Branch albuterol 0 Yes [id number] 2{puff} Inhale 2 Univers 90 8-17 Puffs ity of mcg/actuati 00:00: every 6 Real as on inhaler 00 (six) Medical hours as Branch needed for Wheezing or Shortness of Breath. ARIPiprazol 2022-0 Yes [id number] 5mg Take 1 Univers e 5 mg 8-17 tablet by ity of tablet 00:00: mouth in [place] 00 the Medical morning. Branch albuterol 2022-0 Yes [id number] 2{puff} Inhale 2 Univers 90 8-17 Puffs ity of mcg/actuati 00:00: every 6 Real as on inhaler 00 (six) Medical hours as Branch needed for Wheezing or Shortness of Breath. ARIPiprazol 2022-0 Yes [id number] 5mg Take 1 Univers e 5 mg 8-17 tablet by ity of tablet 00:00: mouth in [place] 00 the Medical morning. Branch albuterol 2022-0 Yes [id number] 2{puff} Inhale 2 Univers 90 8-17 Puffs ity of mcg/actuati 00:00: every 6 Real as on inhaler 00 (six) Medical hours as Branch needed for Wheezing or Shortness of Breath. ARIPiprazol 2022-0 Yes [id number] 5mg Take 1 Univers e 5 mg 8-17 tablet by ity of tablet 00:00: mouth in [place] 00 the Medical morning. Branch albuterol 2022-0 Yes [id number] 2{puff} Inhale 2 Univers 90 8-17 Puffs ity of mcg/actuati 00:00: every 6 Real as on inhaler 00 (six) Medical hours as Branch needed for Wheezing or Shortness of Breath. ARIPiprazol 2022-0 Yes [id number] 5mg Take 1 Univers e 5 mg 8-17 tablet by ity of tablet 00:00: mouth in [place] 00 the Medical morning. Branch albuterol 2022-0 Yes [id number] 2{puff} Inhale 2 Univers 90 8-17 Puffs ity of mcg/actuati 00:00: every 6 Real as on inhaler 00 (six) Medical hours as Branch needed for Wheezing or Shortness of Breath. ARIPiprazol 2022-0 Yes [id number] 5mg Take 1 Univers e 5 mg 8-17 tablet by ity of tablet 00:00: mouth in [place] 00 the Medical morning. Branch albuterol 2022-0 Yes [id number] 2{puff} Inhale 2 Univers 90 8-17 Puffs ity of mcg/actuati 00:00: every 6 Real as on inhaler 00 (six) Medical hours as Branch needed for Wheezing or Shortness of Breath. ARIPiprazol 2022-0 Yes [id number] 5mg Take 1 Univers e 5 mg 8-17 tablet by ity of tablet 00:00: mouth in [place] 00 the Medical morning. Branch albuterol 2022-0 Yes [id number] 2{puff} Inhale 2 Univers 90 8-17 Puffs ity of mcg/actuati 00:00: every 6 Real as on inhaler 00 (six) Medical hours as Branch needed for Wheezing or Shortness of Breath. ARIPiprazol Yes [id number] 5mg Take 1 Univers e 5 mg 8-17 tablet by ity of tablet 00:00: mouth in [place] 00 the Medical morning. Branch albuterol Yes [id number] 2{puff} Inhale 2 Univers 90 8-17 Puffs ity of mcg/actuati 00:00: every 6 Real as on inhaler 00 (six) Medical hours as Branch needed for Wheezing or Shortness of Breath. ARIPiprazol Yes [id number] 5mg Take 1 Univers e 5 mg 8-17 tablet by ity of tablet 00:00: mouth in [place] 00 the Medical morning. Branch ondansetron 2022- No [id number] 4mg Take 1 Univers 4 mg 8-17 [...] 7 days. Indication s: acute pain HYDROcodone 2022-0 2023- Yes [id number] 1{tbl} Take 1 U nivers -acetaminop 8-16 08-24 tablet by it y of hen 5-325 00:00: 04:59 mouth [place] mg tablet 00 :00 every 6 Medical (six) Branch hours as needed for Pain (scale 7-10) for up to 7 days. Indication s: acute pain enoxaparin 2022-0 Yes 40mg 40 mg, Unive rs (LOVENOX) 8-15 Subcutaneo ity of injection 22:00: us, DAILY Real as 40 mg 00 AT 1700, Medical First dose Branch on Sat11/13/22 at 1700, Until Discontinu ed, Routine omeprazole 0 Yes 20mg 20 mg, Unive rs (PRILOSEC) 8-15 Oral, ity of capsule 20 14:00: DAILY, [place] mg 00 First dose Medical on Sat [place] 11/13/22 at 0900, Until Discontinu ed escitalopra 0 Yes 20mg 20 mg, Univ ers m oxalate 8-15 Oral, QAM, ity of (LEXAPRO) 14:00: [place] tablet 20 00 on [facility] mg 11/13/22 at Branch 0900, Until Discontinu ed, Routine ARIPiprazol 0 Yes 5mg 5 mg, Unive rs e (ABILIFY) 8-15 Oral, ity of tablet 5 mg 14:00: [place]ILY, [place] 00 First [place] Medical on [facility] 11/13/22 at 0900, Until Discontinu ed, Routine gabapentin 2022-0 Yes 800mg 800 mg, Uni vers (NEURONTIN) 8-15 Oral, BID, it y of tablet 800 13:00: First dose [place] mg 00 on [facility] 11/13/22 at Branch 0800, Until Discontinu ed, Routine lipase-prot 2022-0 Yes 1{capsu 1 capsule, Univers ease-amylas 8-15 le} Oral, TID ity of e (CREON) 13:00: MEALS, [place] 12,000-38,0 00 First dose Me dical 00 -60,000 on [facility] unit 11/13/22 at capsule 1 0800, capsule Until Discontinu ed, Routine levothyroxi Yes 150ug 150 mcg, U nivers ne 11-13 Oral, ity of (SYNTHROID) 11:00: QAM-0600, [place] tablet 150 00 First dose Med ical mcg on [facility] Branch 11/13/22 at 0600, Until Discontinu ed, Routine lactated 2022- No 1000mL at 125 Univ ers [...] Real as Puff 30 Starting Medical on [facility] 11/13/22 at 0332, Until Discontinu ed, Routine, Wheezing, Shortness of Breath ondansetron Yes 4mg 4 mg, Slow Univers (ZOFRAN 11-13 IV Push, ity of (PF)) 08:29: Q6HPRN, [place] injection 4 35 Starting Medi julieta mg on Sat [place] 11/13/22 at 0329, Until Discontinu ed, Routine, Nausea and Vomiting (N/V) morpHINE (2 2022- No 2mg 2 mg, Slow Univers mg/mL) 11-13 0816 IV Push, ity of injection 2 08:29: 08:28 Q4HPRN, [place] mg 25 :25 Starting Medical on Sat [place] 11/13/22 at 0329, Until Sat11/14/22 at 0328, Routine, Pain (scale 7-10) HYDROcodone 2022-0 2022- Yes 1{tbl} 1 tablet, Univers -acetaminop 8-15 08-17 Oral, ity of hen (NORCO 08:29: 08:28 Q6HPRN, Real as 5) 5-325 mg 21 :21 Starting Medi julieta tablet 1 on Sat [place] tablet 11/13/22 at 0329, Until [place] 11/15/22 at 0328, Routine, Pain (scale 4-6) acetaminoph Yes 650mg 650 mg, Un maddie en 11-13 Oral, ity of (TYLENOL) 08:29: Q6HPRN, [place] tablet 650 16 Starting Medic al mg on [facility] Branch 11/13/22 at 0329, Until Discontinu ed, Routine, Pain (scale 1-3) NaCl 0.9% 2022- No 1000mL at 100 Uni vers (NS) IV 11-13-16 mL/hr, ity of infusion 07:00: 14:50 Intravenou [place] 1,000 mL 00 :31 s, [facility] , Starting on Sat11/13/22 at 0200, Until Sat11/14/22 at 0950, KENIA ondansetron 2022-0 2022- No 4mg 4 mg, Slow Univers (ZOFRAN 11-13-15 IV Push, ity of (PF)) 04:30: 04:29 ONCE, 1 [place] injection 4 00 :00 dose, On Medi julieta mg [facility] 11/12/22 at 2330, KENIA morpHINE (2 2022- No 2mg 2 mg, Slow Univers mg/mL) 11-1315 IV Push, ity of injection 2 04:30: 04:31 ONCE, 1 [place] mg 00 :00 dose, On Medical [facility] 11/12/22 at 2330, STAT ondansetron 2022-0 2022- No 4mg 4 mg, Slow Univers (ZOFRAN 11-13-15 IV Push, ity of (PF)) 02:15: 02:25 ONCE, 1 [place] injection 4 00 :00 dose, On Medi julieta mg [facility] 11/12/22 at 2115, KENIA FENTanyl PF 2022-0 2022- No 25ug 25 mcg, Un maddie (SUBLIMAZE 11-13-15 Slow IV ity o f (PF)) 02:15: 02:25 Push, [place] injection 00 :00 ONCE, 1 Medical 25 mcg dose, On Branch 11/12/22 at 2115, STAT HYDROcodone 2022- Yes [...] 7 days. Indication s: acute pain HYDROcodone 2022-0 2022- Yes [id number] 1{tbl} Take 1 U nivers -acetaminop 11-06 tablet by it y of hen 5-325 00:00: 04:59 mouth [place] mg tablet 00 :00 every 6 Medical (six) Branch hours as needed for Pain (scale 4-6) for up to 7 days. Indication s: acute pain HYDROcodone 2022-0 2022- No 4647 1{tbl} Take 1 U nivers -acetaminop 11-06 tablet by it y of hen 5-325 00:00: 00:00 mouth [place] mg tablet 00 :00 every 6 Medical (six) Branch hours as needed for Pain (scale 4-6) for up to 7 days. Indication s: acute pain morpHINE (4 2022-0 Yes 2mg 2 mg, Slow Univers mg/mL) 11-05 IV Push, ity of injection 2 18:12: Q6HPRN, [place] mg 29 Starting Medical on Sat [place] 11/05/22 at 1312, Until Discontinu ed, Routine, Pain (scale 7-10) omeprazole 2022-0 Yes 40mg 40 mg, Unive rs (PRILOSEC) 11-05 Oral, ity of capsule 40 14:00: DAILY, [place] mg 00 First dose Medical on Sat [place] 11/05/22 at 0900, Until Discontinu ed escitalopra 2022-0 Yes 20mg 20 mg, Univ ers m oxalate 11-05 Oral, QAM, ity of (LEXAPRO) 14:00: First dose [place] tablet 20 00 on [facility] Medical mg 11/05/22 at Branch 0900, Until Discontinu ed, Routine ARIPiprazol 2022-0 Yes 5mg 5 mg, Unive rs e (ABILIFY) 11-05 Oral, ity of tablet 5 mg 14:00: DAILY, [place] 00 First dose Medical on Sat [place] 11/05/22 at 0900, Until Discontinu ed, Routine enoxaparin 2022-0 Yes 40mg 40 mg, Unive rs (LOVENOX) 11-05 Subcutaneo ity of injection 14:00: us, DAILY, [place] 40 mg 00 First dose Medical on [facility] Branch 11/05/22 at 0900, Until Discontinu ed, Routine gabapentin Yes 800mg 800 mg, Uni vers (NEURONTIN) 11-05 Oral, TID, it y of tablet 800 13:00: First dose [place] mg 00 on [facility] 11/05/22 at Branch 0800, Until Discontinu ed, Routine lipase-prot Yes 1{capsu 1 capsule, Univers ease-amylas 11-05 le} Oral, TID ity of e (CREON) 13:00: MEALS, [place] 12,000-38,0 00 First dose Me dical 00 -60,000 on [facility] unit 11/05/22 at capsule 1 0800, capsule Until Discontinu ed, Routine levothyroxi Yes 150ug 150 mcg, U nivers ne 11-05 Oral, ity of (SYNTHROID) 11:00: QAM-0600, [place] tablet 150 00 First dose Med ical mcg on [facility] 11/05/22 at 0600, Until Discontinu ed, Routine albuterol Yes 2{puff} 2 Puff, Un maddie (VENTOLIN) 11-05 Inhalation ity of inhaler 2 08:49: , Q6HPRN, [place] Puff 30 Starting Medical on [facility] 11/05/22 at 0349, Until Discontinu ed, Routine, Wheezing, Shortness of Breath atorvastati 2022-0 2022- No 80mg Take 80 mg Univers n 80 mg 11-05 08-06 by mouth ity of tablet 03:50: 00:00 at [place] 46 :00 bedtime. Medical Branch nicotine Yes 1{patch 1 Patch, Un maddie (NICODERM) 11-05 } Topical, ity o f 14 mg/24 hr 02:30: Administer [place] patch 1 00 over 24 Medical Patch Hours, Branch Q24H, First dose on 11/04/22 at 2130, Until Discontinu ed, Routine varenicline Yes [id number] 1mg Take 1 Univers (CHANTIX) 1 11-05 tablet by ity of mg tablet 00:00: [place] 00 the Medical morning Branch and 1 tablet in the evening. varenicline Yes [id number] 1mg Take 1 Univers (CHANTIX) 1 - tablet by ity of mg tablet 00:00: [place] 00 the Medical morning Branch and 1 tablet in the evening. varenicline 0 2022- No [id number] 1mg Take 1 Univers (CHANTIX) 1 11-05 [...] 4 09 Starting Medi julieta mg on [place] Branch 11/04/22 at 1706, Until Discontinu ed, Routine, Nausea and Vomiting (N/V) FENTanyl PF 2022- No 50ug 50 mcg, Un maddie (SUBLIMAZE 11-04 Slow IV ity o f (PF)) 22:05: 18:14 Push, [place] injection 28 :02 Q3HPRN, Medical 50 mcg Starting Branch on 11/04/22 at 1705, Until 11/05/22 at 1314, Routine, Pain (scale 7-10) HYDROcodone 2022- No 1{tbl} 1 tablet, Univers -acetaminop 11-04-08 Oral, ity of hen (NORCO 22:05: 22:04 Q6HPRN, [place] as 5) 5-325 mg 23 :23 Starting Medi julieta tablet 1 on [place] Branch tablet 11/04/22 at 1705, Until 11/06/22 at 1704, Routine, Pain (scale 4-6) morpHINE (4 2022- No 4mg 4 mg, Slow Univers mg/mL) 11-04 08-06 IV Push, ity of injection 4 20:00: 20:22 ONCE, 1 [place] mg 00 :00 dose, On Medical 11/04/22 Branch at 1500, STAT famotidine 2022- No 20mg 20 mg, Univ ers (PEPCID 11-04 Slow IV ity of (PF)) 20:00: 20:22 Push, [place] injection 00 :00 ONCE, 1 Medical 20 mg dose, On Branch 11/04/22 at 1500, KENIA NaCl 0.9% 2022- No 1000mL at 999 Uni vers (NS) bolus 11-04 mL/hr, ity of infusion 19:30: 23:27 1,000 mL, Real as 1,000 mL 00 :00 IV Medical Piggyback, [place] ONCE, 1 dose, On 11/04/22 at 1430, STAT NaCl 0.9% 0 2022- No 1000mL at 999 Uni vers (NS) bolus 11-04 mL/hr, ity of infusion 18:30: 19:53 1,000 mL, [place] 1,000 mL 00 :00 IV Medical Piggyback, [place] ONCE, 1 dose, On 11/04/22 at 1330, STAT morpHINE (4 2022- No 6mg 6 mg, Slow Univers mg/mL) 11-04 IV Push, ity of injection 6 18:00: 17:56 ONCE, 1 [place] mg 00 :00 dose, On Medical 11/04/22 Branch at 1300, STAT ondansetron 2022-0 2022- No 8mg 8 mg, Slow Univers (ZOFRAN 11-04 IV Push, ity of (PF)) 17:45: 17:56 ONCE, 1 [place] injection 8 00 :00 dose, On Medi julieta mg 11/04/22 Branch at 1245, KENIA ESCITALOPRA 2022-0 Yes [id number] TAKE ONE Univers M OXALATE 8- TABLET BY ity o f 20 mg 00:00: MOUTH [place] tablet 00 EVERY Medical MORNING Branch ESCITALOPRA 2022-0 Yes [id number] TAKE ONE Univers M OXALATE - TABLET BY ity o f 20 mg 00:00: MOUTH [place] tablet 00 EVERY Medical MORNING Branch ESCITALOPRA 2022-0 Yes [id number] TAKE ONE Univers M OXALATE 8-02 TABLET BY ity o f 20 mg 00:00: MOUTH [place] tablet 00 EVERY Medical MORNING Branch ESCITALOPRA Yes [id number] TAKE ONE Univers M OXALATE 8-02 TABLET BY ity o f 20 mg 00:00: MOUTH [place] tablet 00 EVERY Medical MORNING Branch ESCITALOPRA Yes [id number] TAKE ONE Univers M OXALATE 8-02 TABLET BY ity o f 20 mg 00:00: MOUTH [place] tablet 00 EVERY Medical MORNING Branch ESCITALOPRA Yes [id number] TAKE ONE Univers M OXALATE 8-02 TABLET BY ity o f 20 mg 00:00: MOUTH [place] tablet 00 EVERY Medical MORNING Branch ESCITALOPRA Yes [id number] TAKE ONE Univers M OXALATE 8-02 TABLET BY ity o f 20 mg 00:00: MOUTH [place] tablet 00 EVERY Medical MORNING Branch ESCITALOPRA Yes [id number] TAKE ONE Univers M OXALATE 8-02 TABLET BY ity o f 20 mg 00:00: MOUTH [place] tablet 00 EVERY Medical MORNING Branch ESCITALOPRA Yes [id number] TAKE ONE Univers M OXALATE 8-02 TABLET BY ity o f 20 mg 00:00: MOUTH [place] tablet 00 EVERY Medical MORNING Branch ESCITALOPRA Yes [id number] TAKE ONE Univers M OXALATE 8-02 TABLET BY ity o f 20 mg 00:00: MOUTH [place] tablet 00 EVERY Medical MORNING Branch ESCITALOPRA Yes [id number] TAKE ONE Univers M OXALATE 8-02 TABLET BY ity o f 20 mg 00:00: MOUTH [place] tablet 00 EVERY Medical MORNING Branch ESCITALOPRA Yes [id number] TAKE ONE Univers M OXALATE 8-02 TABLET BY ity o f 20 mg 00:00: MOUTH [place] tablet 00 EVERY Medical MORNING Branch ESCITALOPRA Yes [id number] TAKE ONE Univers M OXALATE 8-02 TABLET BY ity o f 20 mg 00:00: MOUTH [place] tablet 00 EVERY Medical MORNING Branch ESCITALOPRA Yes [id number] TAKE ONE Univers M OXALATE 8-02 TABLET BY ity o f 20 mg 00:00: MOUTH [place] tablet 00 EVERY Medical MORNING Branch ESCITALOPRA Yes [id number] TAKE ONE Univers M OXALATE 8-02 TABLET BY ity o f 20 mg 00:00: MOUTH [place] tablet 00 EVERY Medical MORNING Branch ESCITALOPRA 2022- Yes [id number] TAKE ONE Univers M OXALATE 8-02 TABLET BY ity o f 20 mg 00:00: MOUTH [place] tablet 00 EVERY Medical MORNING Branch ESCITALOPRA 0 Yes [id number] TAKE ONE Univers M OXALATE 8-02 TABLET BY ity o f 20 mg 00:00: MOUTH [place] tablet 00 EVERY Medical MORNING Branch ESCITALOPRA 0 Yes [id number] TAKE ONE Univers M OXALATE 8-02 TABLET BY ity o f 20 mg 00:00: MOUTH [place] tablet 00 EVERY Medical MORNING Branch ESCITALOPRA 2022-0 Yes [id number] TAKE ONE Univers M OXALATE 8-02 TABLET BY ity o f 20 mg 00:00: MOUTH [place] tablet 00 EVERY Medical MORNING Branch ESCITALOPRA 2022- Yes [id number] TAKE ONE Univers M OXALATE 8-02 TABLET BY ity o f 20 mg 00:00: MOUTH [place] tablet 00 EVERY Medical MORNING Branch ESCITALOPRA Yes [id number] TAKE ONE Univers M OXALATE 8-02 TABLET BY ity o f 20 mg 00:00: MOUTH [place] tablet 00 EVERY Medical MORNING Branch ESCITALOPRA 0 Yes [id number] TAKE ONE Univers M OXALATE 8-02 TABLET BY ity o f 20 mg 00:00: MOUTH [place] tablet 00 EVERY Medical MORNING Branch ESCITALOPRA 2022-0 Yes [id number] TAKE ONE Univers M OXALATE 8-02 TABLET BY ity o f 20 mg 00:00: MOUTH [place] tablet 00 EVERY Medical MORNING Branch ESCITALOPRA 2022-0 Yes [id number] TAKE ONE Univers M OXALATE 8-02 TABLET BY ity o f 20 mg 00:00: MOUTH [place] tablet 00 EVERY Medical MORNING Branch ESCITALOPRA 2022-0 Yes [id number] TAKE ONE Univers M OXALATE 8-02 TABLET BY ity o f 20 mg 00:00: MOUTH [place] tablet 00 EVERY Medical MORNING Branch ESCITALOPRA 2022-0 Yes [id number] TAKE ONE Univers M OXALATE 8-02 TABLET BY ity o f 20 mg 00:00: MOUTH [place] tablet 00 EVERY Medical MORNING Branch ESCITALOPRA 0 Yes [id number] TAKE ONE Univers M OXALATE 8-02 TABLET BY ity o f 20 mg 00:00: MOUTH [place] tablet 00 EVERY Medical MORNING Branch ESCITALOPRA Yes [id number] TAKE ONE Univers M OXALATE 8-02 TABLET BY ity o f 20 mg 00:00: MOUTH [place] tablet 00 EVERY Medical MORNING Branch buPROPion 0 Yes [id number] 1{tbl} Take 1 Univers HCL, 7-25 tablet by ity of smoking 00:00: mouth in [facility], 150 00 the Medical mg Tb12 morning. Branch Then in 3 days take one tablet by mouth twice a day, if the dose is too high just take once daily buPROPion 2022-0 Yes [id number] 1{tbl} Take 1 Univers HCL, 7-25 tablet by ity of smoking 00:00: mouth in [facility], 150 00 the Medical mg Tb12 morning. Branch Then in 3 days take one tablet by mouth twice a day, if the dose is too high just take once daily buPROPion 2022-0 Yes [id number] 1{tbl} Take 1 Univers HCL, 7-25 tablet by ity of smoking 00:00: mouth in [facility], 150 00 the Medical mg Tb12 morning. Branch Then in 3 days take one tablet by mouth twice a day, if the dose is too high just take once daily buPROPion 2022-2022- No [id number] 1{tbl} Take 1 Univers HCL, 7-25 08-06 tablet by ity of smoking 00:00: 00:00 mouth in [facility], 150 00 :00 the Medical mg Tb12 morning. Branch Then in 3 days take one tablet by mouth twice a day, if the dose is too high just take once daily varenicline Yes [id number] Take one Univers (CHANTIX 7-13 0.5mg tab ity of STARTING 00:00: by mouth [place] MONTH BOX) 00 once daily Med ical 0.5 mg for 3 Branch (11)- 1 mg days, then (42) tablet one 0.5mg tab twice daily for 4 days, then one 1mg tab twice daily. albuterol Yes [id number] 2{puff} Inhale 2 Univers 90 7-13 Puffs ity of mcg/actuati 00:00: every 6 [place] on inhaler 00 (six) Medical hours as Branch needed for Wheezing or Shortness of Breath. varenicline Yes [id number] Take one Univers (CHANTIX 7-13 0.5mg tab ity of STARTING 00:00: by mouth [place] [facility] BOX) 00 once daily Med ical 0.5 mg for 3 Branch (11)- 1 mg days, then (42) tablet one 0.5mg tab twice daily for 4 days, then one 1mg tab twice daily. albuterol Yes [id number] 2{puff} Inhale 2 Univers 90 7-13 Puffs ity of mcg/actuati 00:00: every 6 [place] on inhaler 00 (six) Medical hours as Branch needed for Wheezing or Shortness of Breath. albuterol Yes [id number] 2{puff} Inhale 2 Univers 90 7-13 Puffs ity of mcg/actuati 00:00: every 6 [place] on inhaler 00 (six) Medical hours as Branch needed for Wheezing or Shortness of Breath. albuterol Yes [id number] 2{puff} Inhale 2 Univers 90 7-13 Puffs ity of mcg/actuati 00:00: every 6 [place] on inhaler 00 (six) Medical hours as Branch needed for Wheezing or Shortness of Breath. albuterol Yes [id number] 2{puff} Inhale 2 Univers 90 7-13 Puffs ity of mcg/actuati 00:00: every 6 [place] on inhaler 00 (six) Medical hours as Branch needed for Wheezing or Shortness of Breath. albuterol Yes [id number] 2{puff} Inhale 2 Univers 90 7-13 Puffs ity of mcg/actuati 00:00: every 6 [place] on inhaler 00 (six) Medical hours as Branch needed for Wheezing or Shortness of Breath. albuterol Yes [id number] 2{puff} Inhale 2 Univers 90 7-13 Puffs ity of mcg/actuati 00:00: every 6 [place] inhaler 00 (six) Medical hours as Branch needed for Wheezing or Shortness of Breath. albuterol Yes [id number] 2{puff} Inhale 2 Univers 90 7-13 Puffs ity of mcg/actuati 00:00: every 6 [place] on inhaler 00 (six) Medical hours as Branch needed for Wheezing or Shortness of Breath. albuterol Yes [id number] 2{puff} Inhale 2 Univers 90 7-13 Puffs ity of mcg/actuati 00:00: every 6 [place] inhaler 00 (six) Medical hours as Branch needed for Wheezing or Shortness of Breath. albuterol Yes [id number] 2{puff} Inhale 2 Univers 90 7-13 Puffs ity of mcg/actuati 00:00: every 6 [place] on inhaler 00 (six) Medical hours as Branch needed for Wheezing or Shortness of Breath. albuterol Yes [id number] 2{puff} Inhale 2 Univers 90 7-13 Puffs ity of mcg/actuati 00:00: every 6 [place] on inhaler 00 (six) Medical hours as Branch needed for Wheezing or Shortness of Breath. albuterol Yes [id number] 2{puff} Inhale 2 Univers 90 7-13 Puffs ity of mcg/actuati 00:00: every 6 [place] on inhaler 00 (six) Medical hours as Branch needed for Wheezing or Shortness of Breath. albuterol Yes [id number] 2{puff} Inhale 2 Univers 90 7-13 Puffs ity of mcg/actuati 00:00: every 6 [place] on inhaler 00 (six) Medical hours as Branch needed for Wheezing or Shortness of Breath. albuterol Yes [id number] 2{puff} Inhale 2 Univers 90 7-13 Puffs ity of mcg/actuati 00:00: every 6 [place] on inhaler 00 (six) Medical hours as Branch needed for Wheezing or Shortness of Breath. albuterol 2022- No [id number] 2{puff} Inhale 2 Univers 90 7-13 08-17 Puffs ity of mcg/actuati 00:00: 00:00 every 6 [place] on inhaler 00 :00 (six) Medical hours as Branch needed for Wheezing or Shortness of Breath. albuterol 202- No [id number] 2{puff} Inhale 2 Univers 90 7-13 08-17 Puffs ity of mcg/actuati 00:00: 00:00 every 6 [place] on inhaler 00 :00 (six) Medical hours as Branch needed for Wheezing or Shortness of Breath. varenicline 2022- No [id number] Take one Univers (CHANTIX 7-13 07-25 0.5mg tab ity o f STARTING 00:00: 00:00 by mouth [place] MONTH BOX) 00 :00 once daily Med ical 0.5 mg for 3 Branch (11)- 1 mg days, then (42) tablet one 0.5mg tab twice daily for 4 days, then one 1mg tab twice daily. CREON Yes [id number] TAKE ONE Uni vers 12,000-38,0 7-12 CAPSULE BY it y of 00:00: MOUTH [place] unit 00 EVERY Medical capsule MORNING , Branch ONE CAPSULE AT NOON AND 1 CAPSULE IN THE EVENING WITH MEALS CREON Yes [id number] TAKE ONE Uni vers 12,000-38,0 7-12 CAPSULE BY it y of 00:00: MOUTH [place] unit 00 EVERY Medical capsule MORNING , Branch ONE CAPSULE AT NOON AND 1 CAPSULE IN THE EVENING WITH MEALS CREON Yes [id number] TAKE ONE Uni vers 12,000-38,0 7-12 CAPSULE BY it y of 00:00: MOUTH [place] unit 00 EVERY Medical capsule MORNING , Branch ONE CAPSULE AT NOON AND 1 CAPSULE IN THE EVENING WITH MEALS CREON Yes [id number] TAKE ONE Uni vers 12,000-38,0 7-12 CAPSULE BY it y of 00:00: MOUTH [place] unit 00 EVERY Medical capsule MORNING , Branch ONE CAPSULE AT NOON AND 1 CAPSULE IN THE EVENING WITH MEALS CREON Yes [id number] TAKE ONE Uni vers 12,000-38,0 7-12 CAPSULE BY it y of 00:00: MOUTH [place] unit 00 EVERY Medical capsule MORNING , Branch ONE CAPSULE AT NOON AND 1 CAPSULE IN THE EVENING WITH MEALS CREON Yes [id number] TAKE ONE Uni vers 12,000-38,0 7-12 CAPSULE BY it y of 00:00: MOUTH [place] unit 00 EVERY Medical capsule MORNING , Branch ONE CAPSULE AT NOON AND 1 CAPSULE IN THE EVENING WITH MEALS CREON Yes [id number] TAKE ONE Uni vers 12,000-38,0 7-12 CAPSULE BY it y of 60, 00:00: MOUTH [place] unit 00 EVERY Medical capsule MORNING , Branch ONE CAPSULE AT NOON AND 1 CAPSULE IN THE EVENING WITH MEALS CREON Yes [id number] TAKE ONE Uni vers 12,000-38,0 7-12 CAPSULE BY it y of 60, 00:00: MOUTH [place] unit 00 EVERY Medical capsule MORNING , Branch ONE CAPSULE AT NOON AND 1 CAPSULE IN THE EVENING WITH MEALS CREON Yes [id number] TAKE ONE Uni vers 12,000-38,0 7-12 CAPSULE BY it y of 60, 00:00: MOUTH [place] unit 00 EVERY Medical capsule MORNING , Branch ONE CAPSULE AT NOON AND 1 CAPSULE IN THE EVENING WITH MEALS CREON Yes [id number] TAKE ONE Uni vers 12,000-38,0 7-12 CAPSULE BY it y of 00:00: MOUTH [place] unit 00 EVERY Medical capsule MORNING , Branch ONE CAPSULE AT NOON AND 1 CAPSULE IN THE EVENING WITH MEALS CREON Yes [id number] TAKE ONE Uni vers 12,000-38,0 7-12 CAPSULE BY it y of 00:00: MOUTH [place] unit 00 EVERY Medical capsule MORNING , Branch ONE CAPSULE AT NOON AND 1 CAPSULE IN THE EVENING WITH MEALS CREON Yes [id number] TAKE ONE Uni vers 12,000-38,0 7-12 CAPSULE BY it y of , 00:00: MOUTH [place] unit 00 EVERY Medical capsule MORNING , Branch ONE CAPSULE AT NOON AND 1 CAPSULE IN THE EVENING WITH MEALS CREON Yes [id number] TAKE ONE Uni vers 12,000-38,0 7-12 CAPSULE BY it y of 60, 00:00: MOUTH [place] unit 00 EVERY Medical capsule MORNING , Branch ONE CAPSULE AT NOON AND 1 CAPSULE IN THE EVENING WITH MEALS CREON Yes [id number] TAKE ONE Uni vers 12,000-38,0 7-12 CAPSULE BY it y of 60, 00:00: MOUTH [place] unit 00 EVERY Medical capsule MORNING , Branch ONE CAPSULE AT NOON AND 1 CAPSULE IN THE EVENING WITH MEALS CREON Yes [id number] TAKE ONE Uni vers 12,000-38,0 7-12 CAPSULE BY it y of 60, 00:00: MOUTH [place] unit 00 EVERY Medical capsule MORNING , Branch ONE CAPSULE AT NOON AND 1 CAPSULE IN THE EVENING WITH MEALS CREON Yes [id number] TAKE ONE Uni vers 12,000-38,0 7-12 CAPSULE BY it y of 60, 00:00: MOUTH [place] unit 00 EVERY Medical capsule MORNING , Branch ONE CAPSULE AT NOON AND 1 CAPSULE IN THE EVENING WITH MEALS CREON Yes [id number] TAKE ONE Uni vers 12,000-38,0 7-12 CAPSULE BY it y of 60, 00:00: MOUTH [place] unit 00 EVERY Medical capsule MORNING , Branch ONE CAPSULE AT NOON AND 1 CAPSULE IN THE EVENING WITH MEALS CREON Yes [id number] TAKE ONE Uni vers 12,000-38,0 7-12 CAPSULE BY it y of 60 00:00: MOUTH [place] unit 00 EVERY Medical capsule MORNING , Branch ONE CAPSULE AT NOON AND 1 CAPSULE IN THE EVENING WITH MEALS CREON Yes [id number] TAKE ONE Uni vers 12,000-38,0 7-12 CAPSULE BY it y of 60, 00:00: MOUTH [place] unit 00 EVERY Medical capsule MORNING , Branch ONE CAPSULE AT NOON AND 1 CAPSULE IN THE EVENING WITH MEALS CREON Yes [id number] TAKE ONE Uni vers 12,000-38,0 7-12 CAPSULE BY it y of 60, 00:00: MOUTH [place] unit 00 EVERY Medical capsule MORNING , Branch ONE CAPSULE AT NOON AND 1 CAPSULE IN THE EVENING WITH MEALS CREON Yes [id number] TAKE ONE Uni vers 12,000-38,0 7-12 CAPSULE BY it y of 60, 00:00: MOUTH [place] unit 00 EVERY Medical capsule MORNING , Branch ONE CAPSULE AT NOON AND 1 CAPSULE IN THE EVENING WITH MEALS CREON Yes TAKE ONE Uni vers 12,000-38,0 7-12 CAPSULE BY it y of 60, 00:00: MOUTH [place] unit 00 EVERY Medical capsule MORNING , Branch ONE CAPSULE AT NOON AND 1 CAPSULE IN THE EVENING WITH MEALS CREON Yes [id number] TAKE ONE Uni vers 12,000-38,0 7-12 CAPSULE BY it y of 60 00:00: MOUTH [place] unit 00 EVERY Medical capsule MORNING , Branch ONE CAPSULE AT NOON AND 1 CAPSULE IN THE EVENING WITH MEALS CREON Yes TAKE ONE Uni vers 12,000-38,0 7-12 CAPSULE BY it y of 60 00:00: MOUTH [place] unit 00 EVERY Medical [...] 12,000-38,0 7-12 CAPSULE BY it y of 60, 00:00: MOUTH [place] unit 00 EVERY Medical capsule MORNING , Branch ONE CAPSULE AT NOON AND 1 CAPSULE IN THE EVENING WITH MEALS CREON Yes TAKE ONE Uni vers 12,000-38,0 7-12 CAPSULE BY it y of 60, 00:00: MOUTH [place] unit 00 EVERY Medical capsule MORNING , Branch ONE CAPSULE AT NOON AND 1 CAPSULE IN THE EVENING WITH MEALS CREON Yes TAKE ONE Uni vers 12,000-38,0 7-12 CAPSULE BY it y of 60 00:00: MOUTH [place] unit 00 EVERY Medical capsule MORNING , Branch ONE CAPSULE AT NOON AND 1 CAPSULE IN THE EVENING WITH MEALS CREON 2022-0 Yes [id number] TAKE ONE Uni vers 12,000-38,0 7-12 CAPSULE BY it y of 60, 00:00: MOUTH [place] unit 00 EVERY Medical capsule MORNING , Branch ONE CAPSULE AT NOON AND 1 CAPSULE IN THE EVENING WITH MEALS CREON 2022-0 Yes [id number] TAKE ONE [facility] vers 12,000-38,0 7-12 CAPSULE BY it y of 60 00:00: MOUTH [place] [facility] 00 EVERY Medical capsule MORNING , Branch ONE CAPSULE AT NOON AND 1 CAPSULE IN THE EVENING WITH MEALS GABAPENTIN 2022-0 Yes [id number] TAKE ONE [facility] 800 mg 7-06 [id number] TABLET BY it[facility] of tablet 00:00: MOUTH [place] 00 EVERY Medical MORNING , Branch ONE TABLET AT NOON AND 1 TABLET IN THE EVENING GABAPENTIN 3-0 Yes [id number] TAKE ONE [facility] 800 mg 7-06 [id number] TABLET BY it[facility] of tablet 00:00: MOUTH [place] 00 EVERY Medical MORNING , Branch ONE TABLET AT NOON AND 1 TABLET IN THE EVENING GABAPENTIN 3-0 Yes [id number] TAKE ONE [facility] 800 mg 7-06 [id number] TABLET BY [facility] of tablet 00:00: MOUTH [place] 00 EVERY Medical MORNING , Branch ONE TABLET AT NOON AND 1 TABLET IN THE EVENING GABAPENTIN 2023-0 Yes [id number] TAKE ONE [facility] 800 mg 7-06 [id number] TABLET BY [facility] of tablet 00:00: MOUTH [place] 00 EVERY Medical MORNING , Branch ONE TABLET AT NOON AND 1 TABLET IN THE EVENING GABAPENTIN 2023-0 Yes [id number] TAKE ONE [facility] 800 mg 7-06 [id number] TABLET BY it[facility] of tablet 00:00: MOUTH [place] 00 EVERY Medical MORNING , Branch ONE TABLET AT NOON AND 1 TABLET IN THE EVENING GABAPENTIN 2023-0 Yes [id number] TAKE ONE [facility] 800 mg 7-06 [id number] TABLET BY [facility] of tablet 00:00: MOUTH [place] 00 EVERY Medical MORNING , Branch ONE TABLET AT NOON AND 1 TABLET IN THE EVENING GABAPENTIN 2023-0 Yes [id number] TAKE ONE [facility] 800 mg 7-06 [id number] TABLET BY [facility] of tablet 00:00: MOUTH [place] 00 EVERY Medical MORNING , Branch ONE TABLET AT NOON AND 1 TABLET IN THE EVENING GABAPENTIN 2023-0 Yes [id number] TAKE ONE [facility] 800 mg 7-06 [id number] TABLET BY it[facility] of tablet 00:00: MOUTH [place] 00 EVERY Medical MORNING , Branch ONE TABLET AT NOON AND 1 TABLET IN THE EVENING GABAPENTIN 2023-0 Yes [id number] TAKE ONE [facility] 800 mg 7-06 [id number] TABLET BY ity of tablet 00:00: MOUTH [place] 00 EVERY Medical MORNING , Branch ONE TABLET AT NOON AND 1 TABLET IN THE EVENING GABAPENTIN 2023-0 Yes [id number] TAKE ONE [facility] 800 mg 7-06 [id number] TABLET BY it[facility] of tablet 00:00: MOUTH [place] 00 EVERY Medical MORNING , Branch ONE TABLET AT NOON AND 1 TABLET IN THE EVENING GABAPENTIN 2023-0 Yes [id number] TAKE ONE [facility] 800 mg 7-06 [id number] TABLET BY it[facility] of tablet 00:00: MOUTH [place] 00 EVERY Medical MORNING , Branch ONE TABLET AT NOON AND 1 TABLET IN THE EVENING GABAPENTIN 2023-0 Yes [id number] TAKE ONE [facility] 800 mg 7-06 [id number] TABLET BY it[facility] of tablet 00:00: MOUTH [place] 00 EVERY Medical MORNING , Branch ONE TABLET AT NOON AND 1 TABLET IN THE EVENING GABAPENTIN 2023-0 Yes [id number] TAKE ONE [facility] 800 mg 7-06 [id number] TABLET BY it[facility] of tablet 00:00: MOUTH [place] 00 EVERY Medical MORNING , Branch ONE TABLET AT NOON AND 1 TABLET IN THE EVENING GABAPENTIN 2023-0 Yes [id number] TAKE ONE [facility] 800 mg 7-06 [id number] TABLET BY it[facility] of tablet 00:00: MOUTH [place] 00 EVERY Medical MORNING , Branch ONE TABLET AT NOON AND 1 TABLET IN THE EVENING GABAPENTIN 2023-0 Yes [id number] TAKE ONE [facility] 800 mg 7-06 [id number] TABLET BY it[facility] of tablet 00:00: MOUTH [place] 00 EVERY Medical MORNING , Branch ONE TABLET AT NOON AND 1 TABLET IN THE EVENING GABAPENTIN 2023-0 Yes [id number] TAKE ONE [facility] 800 mg 7-06 [id number] TABLET BY [facility] of tablet 00:00: MOUTH [place] 00 EVERY Medical MORNING , Branch ONE TABLET AT NOON AND 1 TABLET IN THE EVENING GABAPENTIN 2023-0 Yes [id number] TAKE ONE [facility] 800 mg 7-06 [id number] TABLET BY it[facility] of tablet 00:00: MOUTH [place] 00 EVERY Medical MORNING , Branch ONE TABLET AT NOON AND 1 TABLET IN THE EVENING GABAPENTIN 2023-0 Yes [id number] TAKE ONE [facility] 800 mg 7-06 [id number] TABLET BY it[facility] of tablet 00:00: MOUTH [place] 00 EVERY Medical MORNING , Branch ONE TABLET AT NOON AND 1 TABLET IN THE EVENING GABAPENTIN 2023-0 Yes [id number] TAKE ONE [facility] 800 mg 7-06 [id number] TABLET BY [facility] of tablet 00:00: MOUTH [place] 00 EVERY Medical MORNING , Branch ONE TABLET AT NOON AND 1 TABLET IN THE EVENING GABAPENTIN 2023-0 Yes [id number] TAKE ONE [facility] 800 mg 7-06 [id number] TABLET BY it[facility] of tablet 00:00: MOUTH [place] 00 EVERY Medical MORNING , Branch ONE TABLET AT NOON AND 1 TABLET IN THE EVENING GABAPENTIN 2023-0 Yes [id number] TAKE ONE [facility] 800 mg 7-06 [id number] TABLET BY it[facility] of tablet 00:00: MOUTH [place] 00 EVERY Medical MORNING , Branch ONE TABLET AT NOON AND 1 TABLET IN THE EVENING GABAPENTIN 2023-0 Yes [id number] TAKE ONE [facility] 800 mg 7-06 [id number] TABLET BY it[facility] of tablet 00:00: MOUTH [place] 00 EVERY Medical MORNING , Branch ONE TABLET AT NOON AND 1 TABLET IN THE EVENING GABAPENTIN 2023-0 Yes [id number] TAKE ONE [facility] 800 mg 7-06 [id number] TABLET BY it[facility] of tablet 00:00: MOUTH [place] 00 EVERY Medical MORNING , Branch ONE TABLET AT NOON AND 1 TABLET IN THE EVENING GABAPENTIN 2023-0 Yes [id number] TAKE ONE [facility] 800 mg 7-06 [id number] TABLET BY it[facility] of tablet 00:00: MOUTH [place] 00 EVERY Medical MORNING , Branch ONE TABLET AT NOON AND 1 TABLET IN THE EVENING GABAPENTIN 2023-0 Yes [id number] TAKE ONE [facility] 800 mg 7-06 [id number] TABLET BY it[facility] of tablet 00:00: MOUTH [place] 00 EVERY Medical MORNING , Branch ONE TABLET AT NOON AND 1 TABLET IN THE EVENING GABAPENTIN 2023-0 Yes [id number] TAKE ONE [facility] 800 mg 7-06 [id number] TABLET BY it[facility] of tablet 00:00: MOUTH [place] 00 EVERY Medical MORNING , Branch ONE TABLET AT NOON AND 1 TABLET IN THE EVENING GABAPENTIN 2023-0 Yes [id number] TAKE ONE [facility] 800 mg 7-06 [id number] TABLET BY it[facility] of tablet 00:00: MOUTH [place] 00 EVERY Medical MORNING , Branch ONE TABLET AT NOON AND 1 TABLET IN THE EVENING GABAPENTIN 2023-0 Yes [id number] TAKE ONE [facility] 800 mg 7-06 [id number] TABLET BY it[facility] of tablet 00:00: MOUTH [place] 00 EVERY Medical MORNING , Branch ONE TABLET AT NOON AND 1 TABLET IN THE EVENING GABAPENTIN 2023-0 Yes [id number] TAKE ONE [facility] 800 mg 7-06 [id number] TABLET BY ity of tablet 00:00: MOUTH [place] 00 EVERY Medical MORNING , Branch ONE TABLET AT NOON AND 1 TABLET IN THE EVENING GABAPENTIN 2023-0 Yes [id number] TAKE ONE [facility] 800 mg 7-06 [id number] TABLET BY ity of tablet 00:00: MOUTH [place] 00 EVERY Medical MORNING , Branch ONE TABLET AT NOON AND 1 TABLET IN THE EVENING GABAPENTIN 2023-0 Yes [id number] TAKE ONE [facility] 800 mg 7-06 [id number] TABLET BY it[facility] of tablet 00:00: MOUTH [place] 00 EVERY Medical MORNING , Branch ONE TABLET AT NOON AND 1 TABLET IN THE EVENING GABAPENTIN 2023-0 Yes [id number] TAKE ONE [facility] 800 mg 7-06 [id number] TABLET BY it[facility] of tablet 00:00: MOUTH [place] 00 EVERY Medical MORNING , Branch ONE TABLET AT NOON AND 1 TABLET IN THE EVENING GABAPENTIN 2023-0 Yes [id number] TAKE ONE [facility] 800 mg 7-06 [id number] TABLET BY it[facility] of tablet 00:00: MOUTH [place] 00 EVERY Medical MORNING , Branch ONE TABLET AT NOON AND 1 TABLET IN THE EVENING ferrous 3-0 2022- No 300mg Take 300 [facility] ers sulfate 300 6-30 06-30 mg by [facility] of mg (60 mg 14:41: 00:00 [place] [facility] [place] [facility]5 mL 15 :00 (two) Medical solution times [place] daily. ferrous 3-0 2022- No 300mg Take 300 [facility] ers sulfate 300 6-30 06-30 mg by [facility] of mg (60 mg 14:41: 00:00 [place]5 mL 15 :00 (two) Medical solution times [place] daily. omeprazole 3-0 Yes [id number] Take one [facility] 40 mg 6-30 capsule by ity of capsule 00:00: mouth [place] 00 twice Medical daily for Branch one week then one capsule by mouth daily omeprazole 2023-0 Yes [id number] Take one [facility] 40 mg 6-30 capsule by ity of capsule 00:00: mouth [place] 00 twice Medical daily for Branch one week then one capsule by mouth daily omeprazole 2023-0 Yes [id number] Take one [facility] 40 mg 6-30 capsule by ity of capsule 00:00: mouth [place] 00 twice Medical daily for Branch one week then one capsule by mouth daily omeprazole 2023-0 Yes [id number] Take one [facility] 40 mg 6-30 capsule by ity of capsule 00:00: mouth [place] 00 twice Medical daily for Branch one week then one capsule by mouth daily omeprazole 2023-0 Yes [id number] Take one [facility] 40 mg 6-30 capsule by ity of capsule 00:00: mouth [place] 00 twice Medical daily for Branch one week then one capsule by mouth daily omeprazole 2023-0 Yes [id number] Take one [facility] 40 mg 6-30 capsule by ity of capsule 00:00: mouth [place] 00 twice Medical daily for Branch one week then one capsule by mouth daily omeprazole 2023-0 Yes [id number] Take one [facility] 40 mg 6-30 capsule by ity of capsule 00:00: mouth [place] 00 twice Medical daily for Branch one week then one capsule by mouth daily omeprazole 2023-0 Yes [id number] Take one [facility] 40 mg 6-30 capsule by ity of capsule 00:00: mouth [place] 00 twice Medical daily for Branch one week then one capsule by mouth daily omeprazole 2023-0 Yes [id number] Take one [facility] 40 mg 6-30 capsule by ity of capsule 00:00: mouth [place] 00 twice Medical daily for Branch one week then one capsule by mouth daily omeprazole 2023-0 Yes [id number] Take one [facility] 40 mg 6-30 capsule by ity of capsule 00:00: mouth [place] 00 twice Medical daily for Branch one week then one capsule by mouth daily omeprazole 2023-0 Yes [id number] Take one [facility] 40 mg 6-30 capsule by ity of capsule 00:00: mouth [place] 00 twice Medical daily for Branch one week then one capsule by mouth daily omeprazole 2023-0 Yes [id number] Take one [facility] 40 mg 6-30 capsule by ity of capsule 00:00: mouth [place] 00 twice Medical daily for Branch one week then one capsule by mouth daily omeprazole 2023-0 Yes [id number] Take one [facility] 40 mg 6-30 capsule by ity of capsule 00:00: mouth [place] 00 twice Medical daily for Branch one week then one capsule by mouth daily omeprazole 2023-0 Yes [id number] Take one [facility] 40 mg 6-30 capsule by ity of capsule 00:00: mouth [place] 00 twice Medical daily for Branch one week then one capsule by mouth daily omeprazole 2023-0 Yes [id number] Take one [facility] 40 mg 6-30 capsule by ity of capsule 00:00: mouth [place] 00 twice Medical daily for Branch one week then one capsule by mouth daily omeprazole 2023-0 Yes [id number] Take one [facility] 40 mg 6-30 capsule by ity of capsule 00:00: mouth [place] 00 twice Medical daily for Branch one week then one capsule by mouth daily omeprazole 2023-0 Yes [id number] Take one [facility] 40 mg 6-30 capsule by ity of capsule 00:00: mouth [place] 00 twice Medical daily for Branch one week then one capsule by mouth daily omeprazole 2023-0 Yes [id number] Take one [facility] 40 mg 6-30 capsule by ity of capsule 00:00: mouth [place] 00 twice Medical daily for Branch one week then one capsule by mouth daily omeprazole 2023-0 Yes [id number] Take one [facility] 40 mg 6-30 capsule by ity of capsule 00:00: mouth [place] 00 twice Medical daily for Branch one week then one capsule by mouth daily omeprazole 2023-0 Yes [id number] Take one [facility] 40 mg 6-30 capsule by ity of capsule 00:00: mouth [place] 00 twice Medical daily for Branch one week then one capsule by mouth daily omeprazole 2023-0 Yes [id number] Take one [facility] 40 mg 6-30 capsule by ity of capsule 00:00: mouth [place] 00 twice Medical daily for Branch one week then one capsule by mouth daily omeprazole 2023-0 Yes [id number] Take one [facility] 40 mg 6-30 capsule by ity of capsule 00:00: mouth [place] 00 twice Medical daily for Branch one week then one capsule by mouth daily omeprazole 2023-0 Yes [id number] Take one [facility] 40 mg 6-30 capsule by ity of capsule 00:00: mouth [place] 00 twice Medical daily for Branch one week then one capsule by mouth daily omeprazole 2023-0 Yes [id number] Take one [facility] 40 mg 6-30 capsule by ity of capsule 00:00: mouth [place] 00 twice Medical daily for Branch one week then one capsule by mouth daily omeprazole 2023-0 Yes [id number] Take one [facility] 40 mg 6-30 capsule by ity of capsule 00:00: mouth [place] 00 twice Medical daily for Branch one week then one capsule by mouth daily omeprazole 3-0 Yes [id number] Take one [facility] 40 mg 6-30 capsule by ity of capsule 00:00: mouth [place] 00 twice Medical daily for Branch one week then one capsule by mouth daily omeprazole 2023-0 Yes [id number] Take one [facility] 40 mg 6-30 capsule by ity of capsule 00:00: mouth [place] 00 twice Medical daily for Branch one week then one capsule by mouth daily omeprazole 2023-0 Yes [id number] Take one [facility] 40 mg 6-30 capsule by ity of capsule 00:00: mouth [place] 00 twice Medical daily for Branch one week then one capsule by mouth daily omeprazole 3-0 Yes [id number] Take one [facility] 40 mg 6-30 capsule by ity of capsule 00:00: mouth [place] 00 twice Medical daily for Branch one week then one capsule by mouth daily omeprazole 3-0 Yes [id number] Take one [facility] 40 mg 6-30 capsule by ity of capsule 00:00: mouth [place] 00 twice Medical daily for Branch one week then one capsule by mouth daily omeprazole 3-0 Yes [id number] Take one [facility] 40 mg 6-30 capsule by ity of capsule 00:00: mouth [place] 00 twice Medical daily for Branch one week then one capsule by mouth daily omeprazole 3-0 Yes [id number] Take one [facility] 40 mg 6-30 capsule by ity of capsule 00:00: mouth [place] 00 twice Medical daily for Branch one week then one capsule by mouth daily omeprazole 3-0 Yes [id number] Take one [facility] 40 mg 6-30 capsule by ity of capsule 00:00: mouth [place] 00 twice Medical daily for Branch one week then one capsule by mouth daily omeprazole 3-0 Yes [id number] Take one [facility] 40 mg 6-30 capsule by ity of capsule 00:00: mouth [place] 00 twice Medical daily for Branch one week then one capsule by mouth daily omeprazole 2023-0 Yes [id number] Take one [facility] 40 mg 6-30 capsule by ity of capsule 00:00: mouth [place] 00 twice Medical daily for Branch one week then one capsule by mouth daily omeprazole 2023-0 Yes [id number] Take one [facility] 40 mg 6-30 capsule by ity of capsule 00:00: mouth [place] 00 twice Medical daily for Branch one week then one capsule by mouth daily levothyroxi 3-0 Yes [id number] 150ug Take 1 [facility] ne 150 mcg 5-31 tablet by ity of tablet 00:00: mouth [place] 00 every Medical morning. Branch levothyroxi 3-0 Yes [id number] 150ug Take 1 [facility] ne 150 mcg 5-31 tablet by ity of tablet 00:00: mouth [place] 00 every Medical morning. Branch levothyroxi 3-0 Yes [id number] 150ug Take 1 [facility] ne 150 mcg 5-31 tablet by ity of tablet 00:00: mouth [place] 00 every Medical morning. Branch levothyroxi 3-0 Yes [id number] 150ug Take 1 [facility] ne 150 mcg 5-31 tablet by ity of tablet 00:00: mouth [place] 00 every Medical morning. Branch levothyroxi 3-0 Yes [id number] 150ug Take 1 [facility] ne 150 mcg 5-31 tablet by ity of tablet 00:00: mouth [place] 00 every Medical morning. Branch levothyroxi 3-0 Yes [id number] 150ug Take 1 [facility] ne 150 mcg 5-31 tablet by ity of tablet 00:00: mouth [place] 00 every Medical morning. Branch levothyroxi 3-0 Yes [id number] 150ug Take 1 [facility] ne 150 mcg 5-31 tablet by ity of tablet 00:00: mouth [place] 00 every Medical morning. Branch levothyroxi 3-0 Yes [id number] 150ug Take 1 [facility] ne 150 mcg 5-31 tablet by ity of tablet 00:00: mouth [place] 00 every Medical morning. Branch levothyroxi 3-0 Yes [id number] 150ug Take 1 [facility] ne 150 mcg 5-31 tablet by ity of tablet 00:00: mouth [place] 00 every Medical morning. Branch levothyroxi 3-0 Yes [id number] 150ug Take 1 [facility] ne 150 mcg 5-31 tablet by ity of tablet 00:00: mouth [place] 00 every Medical morning. Branch levothyroxi 3-0 Yes [id number] 150ug Take 1 [facility] ne 150 mcg 5-31 tablet by ity of tablet 00:00: mouth [place] 00 every Medical morning. Branch levothyroxi 3-0 Yes [id number] 150ug Take 1 [facility] ne 150 mcg 5-31 tablet by ity of tablet 00:00: mouth [place] 00 every Medical morning. Branch levothyroxi 2022-0 Yes [id number] 150ug Take 1 [facility] ne 150 mcg 5-31 tablet by ity of tablet 00:00: mouth [place] 00 every Medical morning. Branch levothyroxi 2022-0 Yes [id number] 150ug Take 1 [facility] ne 150 mcg 5-31 tablet by ity of tablet 00:00: mouth [place] 00 every Medical morning. Branch levothyroxi 2022-0 Yes [id number] 150ug Take 1 [facility] ne 150 mcg 5-31 tablet by ity of tablet 00:00: mouth [place] 00 every Medical morning. Branch levothyroxi 2022-0 Yes [id number] 150ug Take 1 [facility] ne 150 mcg 5-31 tablet by ity of tablet 00:00: mouth [place] 00 every Medical morning. Branch levothyroxi 2022-0 Yes [id number] 150ug Take 1 [facility] ne 150 mcg 5-31 tablet by ity of tablet 00:00: mouth [place] 00 every Medical morning. Branch levothyroxi 2022-0 Yes [id number] 150ug Take 1 [facility] ne 150 mcg 5-31 tablet by ity of tablet 00:00: mouth [place] 00 every Medical morning. Branch levothyroxi 2022-0 Yes [id number] 150ug Take 1 [facility] ne 150 mcg 5-31 tablet by ity of tablet 00:00: mouth [place] 00 every Medical morning. Branch levothyroxi 2022-0 Yes [id number] 150ug Take 1 [facility] ne 150 mcg 5-31 tablet by ity of tablet 00:00: mouth [place] 00 every Medical morning. Branch levothyroxi 3-0 Yes [id number] 150ug Take 1 [facility] ne 150 mcg 5-31 tablet by ity of tablet 00:00: mouth [place] 00 every Medical morning. Branch levothyroxi 2022-0 Yes [id number] 150ug Take 1 [facility] ne 150 mcg 5-31 tablet by ity of tablet 00:00: mouth [place] 00 every Medical morning. Branch levothyroxi 3-0 Yes [id number] 150ug Take 1 [facility] ne 150 mcg 5-31 tablet by ity of tablet 00:00: mouth [place] 00 every Medical morning. Branch levothyroxi 2022-0 Yes [id number] 150ug Take 1 [facility] ne 150 mcg 5-31 tablet by ity of tablet 00:00: mouth [place] 00 every Medical morning. Branch levothyroxi 3-0 Yes [id number] 150ug Take 1 [facility] ne 150 mcg 5-31 tablet by ity of tablet 00:00: mouth [place] 00 every Medical morning. Branch levothyroxi 3-0 Yes [id number] 150ug Take 1 [facility] ne 150 mcg 5-31 tablet by ity of tablet 00:00: mouth [place] 00 every Medical morning. Branch levothyroxi 3-0 Yes [id number] 150ug Take 1 [facility] ne 150 mcg 5-31 tablet by ity of tablet 00:00: mouth [place] 00 every Medical morning. Branch levothyroxi 3-0 Yes [id number] 150ug Take 1 [facility] ne 150 mcg 5-31 tablet by ity of tablet 00:00: mouth [place] 00 every Medical morning. Branch levothyroxi 3-0 Yes [id number] 150ug Take 1 [facility] ne 150 mcg 5-31 tablet by ity of tablet 00:00: mouth [place] 00 every Medical morning. Branch levothyroxi 3-0 Yes [id number] 150ug Take 1 [facility] ne 150 mcg 5-31 tablet by ity of tablet 00:00: mouth [place] 00 every Medical morning. Branch levothyroxi 3-0 Yes [id number] 150ug Take 1 [facility] ne 150 mcg 5-31 tablet by ity of tablet 00:00: mouth [place] 00 every Medical morning. Branch levothyroxi 3-0 Yes [id number] 150ug Take 1 [facility] ne 150 mcg 5-31 tablet by ity of tablet 00:00: mouth [place] 00 every Medical morning. Branch levothyroxi 3-0 Yes [id number] 150ug Take 1 [facility] ne 150 mcg 5-31 tablet by ity of tablet 00:00: mouth [place] 00 every Medical morning. Branch levothyroxi 3-0 Yes [id number] 150ug Take 1 [facility] ne 150 mcg 5-31 tablet by ity of tablet 00:00: mouth [place] 00 every Medical morning. Branch levothyroxi 3-0 Yes [id number] 150ug Take 1 [facility] ne 150 mcg 5-31 tablet by ity of tablet 00:00: mouth [place] 00 every Medical morning. Branch levothyroxi 3-0 Yes [id number] 150ug Take 1 [facility] ne 150 mcg 5-31 tablet by ity of tablet 00:00: mouth [place] 00 every Medical morning. Branch levothyroxi 2023-0 Yes [id number] 150ug Take 1 [facility] ne 150 mcg 5-31 tablet by ity of tablet 00:00: mouth [place] 00 every Medical morning. Branch levothyroxi 2023-0 Yes [id number] 150ug Take 1 [facility] ne 150 mcg 5-31 tablet by ity of tablet 00:00: mouth [place] 00 every Medical morning. Branch levothyroxi 2023-0 Yes [id number] 150ug Take 1 [facility] ne 150 mcg 5-31 tablet by ity of tablet 00:00: mouth [place] 00 every Medical morning. Branch levothyroxi 2023-0 Yes [id number] 150ug Take 1 [facility] ne 150 mcg 5-31 tablet by ity of tablet 00:00: mouth [place] 00 every Medical morning. Branch levothyroxi 2023-0 Yes [id number] 150ug Take 1 [facility] ne 150 mcg 5-31 tablet by ity of tablet 00:00: mouth [place] 00 every Medical morning. Branch levothyroxi 2023-0 Yes [id number] 150ug Take 1 [facility] ne 150 mcg 5-31 tablet by ity of tablet 00:00: mouth [place] 00 every Medical morning. Branch GABAPENTIN 2023-0 Yes [id number] TAKE ONE [facility] 800 mg 5-03 [id number] TABLET BY ity of tablet 00:00: MOUTH [place] 00 EVERY Medical MORNING , Branch ONE TABLET AT NOON AND 1 TABLET IN THE EVENING GABAPENTIN 2023-0 Yes [id number] TAKE ONE [facility] 800 mg 5-03 [id number] TABLET BY ity of tablet 00:00: MOUTH [place] 00 EVERY Medical MORNING , Branch ONE TABLET AT NOON AND 1 TABLET IN THE EVENING GABAPENTIN 2023-0 Yes [id number] TAKE ONE [facility] 800 mg 5-03 [id number] TABLET BY ity of tablet 00:00: MOUTH [place] 00 EVERY Medical MORNING , Branch ONE TABLET AT NOON AND 1 TABLET IN THE EVENING GABAPENTIN 2023-0 Yes [id number] TAKE ONE [facility] 800 mg 5-03 [id number] TABLET BY ity of tablet 00:00: MOUTH [place] 00 EVERY Medical MORNING , Branch ONE TABLET AT NOON AND 1 TABLET IN THE EVENING GABAPENTIN 2023-0 Yes [id number] TAKE ONE [facility] 800 mg 5-03 [id number] TABLET BY ity of tablet 00:00: MOUTH [place] 00 EVERY Medical MORNING , Branch ONE TABLET AT NOON AND 1 TABLET IN THE EVENING GABAPENTIN 2023-0 Yes [id number] TAKE ONE [facility] 800 mg 5-03 [id number] TABLET BY ity of tablet 00:00: MOUTH [place] 00 EVERY Medical MORNING , Branch ONE TABLET AT NOON AND 1 TABLET IN THE EVENING GABAPENTIN 3-0 Yes [id number] TAKE ONE [facility] 800 mg 5-03 [id number] TABLET BY ity of tablet 00:00: MOUTH [place] 00 EVERY Medical MORNING , Branch ONE TABLET AT NOON AND 1 TABLET IN THE EVENING GABAPENTIN 3-0 Yes [id number] TAKE ONE [facility] 800 mg 5-03 [id number] TABLET BY ity of tablet 00:00: MOUTH [place] 00 EVERY Medical MORNING , Branch ONE TABLET AT NOON AND 1 TABLET IN THE EVENING GABAPENTIN 3-0 Yes [id number] TAKE ONE [facility] 800 mg 5-03 [id number] TABLET BY ity of tablet 00:00: MOUTH [place] 00 EVERY Medical MORNING , Branch ONE TABLET AT NOON AND 1 TABLET IN THE EVENING GABAPENTIN 3-0 Yes [id number] TAKE ONE [facility] 800 mg 5-03 [id number] TABLET BY ity of tablet 00:00: MOUTH [place] 00 EVERY Medical MORNING , Branch ONE TABLET AT NOON AND 1 TABLET IN THE EVENING GABAPENTIN 3-0 Yes [id number] TAKE ONE [facility] 800 mg 5-03 [id number] TABLET BY ity of tablet 00:00: MOUTH [place] 00 EVERY Medical MORNING , Branch ONE TABLET AT NOON AND 1 TABLET IN THE EVENING GABAPENTIN 3-0 Yes [id number] TAKE ONE [facility] 800 mg 5-03 [id number] TABLET BY ity of tablet 00:00: MOUTH [place] 00 EVERY Medical MORNING , Branch ONE TABLET AT NOON AND 1 TABLET IN THE EVENING GABAPENTIN 3-0 Yes [id number] TAKE ONE [facility] 800 mg 5-03 [id number] TABLET BY ity of tablet 00:00: MOUTH [place] 00 EVERY Medical MORNING , Branch ONE TABLET AT NOON AND 1 TABLET IN THE EVENING GABAPENTIN 3-0 202- No [id number] TAKE ONE [facility] 800 mg 5-03 07-06 [id number] TABLET BY ity o f tablet 00:00: 00:00 MOUTH [place] 00 :00 EVERY Medical MORNING , Branch ONE TABLET AT NOON AND 1 TABLET IN THE EVENING levothyroxi 2021-04 Yes [id number] 150ug Take 1 [facility] ne 150 mcg 1-07 tablet by ity of tablet 00:00: mouth [place] 00 every Medical morning. Branch levothyroxi 2021-04 Yes [id number] 150ug Take 1 [facility] ne 150 mcg 1-07 tablet by ity of tablet 00:00: mouth [place] 00 every Medical morning. Branch levothyroxi 2021-04 Yes [id number] 150ug Take 1 [facility] ne 150 mcg 1-07 tablet by ity of tablet 00:00: mouth [place] 00 every Medical morning. Branch levothyroxi 2021-04 Yes [id number] 150ug Take 1 [facility] ne 150 mcg 1-07 tablet by ity of tablet 00:00: mouth [place] 00 every Medical morning. Branch levothyroxi 2021-04 Yes [id number] 150ug Take 1 [facility] ne 150 mcg 1-07 tablet by ity of tablet 00:00: mouth [place] 00 every Medical morning. Branch levothyroxi 2021-04- No [id number] 150ug Take 1 [facility] ne 150 mcg 1-07 05-31 tablet by ity of tablet 00:00: 00:00 mouth [place] 00 :00 every Medical morning. Branch levothyroxi 2021-04- No [id number] 150ug Take 1 [facility] ne 150 mcg 1-07 05-31 tablet by ity of tablet 00:00: 00:00 mouth [place] 00 :00 every Medical morning. Branch levothyroxi 2021-04- No [id number] 150ug Take 1 [facility] ne 150 mcg 1-07 05-31 tablet by ity of tablet 00:00: 00:00 mouth [place] 00 :00 every Medical morning. Branch levothyroxi 2021-04- No [id number] 150ug Take 1 [facility] ne 150 mcg 1-07 05-31 tablet by ity of tablet 00:00: 00:00 mouth [place] 00 :00 every Medical morning. Branch levothyroxi 2021-04- No [id number] 150ug Take 1 [facility] ne 150 mcg 1-07 05-31 tablet by ity of tablet 00:00: 00:00 mouth [place] 00 :00 every Medical morning. Branch levothyroxi 2021-04 Yes [id number] TAKE 1 [facility] ne 137 mcg 1-04 TABLET BY ity of tablet 00:00: MOUTH [place] 00 EVERY Medical OTHER DAY Branch levothyroxi 2021-04 Yes [id number] TAKE 1 [facility] ne 137 mcg 1-04 TABLET BY ity of tablet 00:00: MOUTH [place] 00 EVERY Medical OTHER DAY Branch levothyroxi 2021-04- No [id number] TAKE 1 [facility] ne 137 mcg 1-04 -07 TABLET BY ity of tablet 00:00: 00:00 MOUTH [place] 00 :00 EVERY Medical OTHER DAY Branch levothyroxi 2021-04- No [id number] TAKE 1 [facility] ne 137 mcg 1-04 -07 TABLET BY ity of tablet 00:00: 00:00 MOUTH [place] 00 :00 EVERY Medical OTHER DAY Branch levothyroxi 2021-04 Yes [id number] TAKE 1 [facility] ne 137 mcg 0-11 TABLET BY ity of tablet 00:00: MOUTH [place] 00 EVERY Medical OTHER DAY Branch levothyroxi 2021-04 Yes [id number] TAKE 1 [facility] ne 137 mcg 0-11 TABLET BY ity of tablet 00:00: MOUTH [place] 00 EVERY Medical OTHER DAY Branch levothyroxi 2021-04- No [id number] TAKE 1 [facility] ne 137 mcg 0-11 11-04 TABLET BY ity of tablet 00:00: 00:00 MOUTH [place] 00 :00 EVERY Medical OTHER DAY Branch levothyroxi 2021-04- No [id number] TAKE 1 [facility] ne 137 mcg 0-11 11-04 TABLET BY ity of tablet 00:00: 00:00 MOUTH [place] 00 :00 EVERY Medical OTHER DAY Branch albuterol 2021- No 2.5mg Inhale 2.5 Univers 2.5 mg /3 8-29 08-29 mg every 4 ity of mL (0.083 11:45: 00:00 (four) [place] %) 37 :00 hours as Medical nebulizer needed for Bran ch solution Wheezing, Shortness of Breath or Bronchospa sm. ketoconazol Yes [id number] Apply to [facility] e 2 % 8-29 area(s) ity of shampoo 00:00: [place] 00 as needed Medical for Branch Itching. escitalopra Yes [id number] 20mg Take 1 [facility] m oxalate 8-29 tablet by ity o f 20 mg 00:00: mouth in [place] tablet 00 the Medical morning. Branch pantoprazol Yes [id number] 40mg Take 20 mL [facility] e 2 mg/mL 8-29 by mouth ity of oral 00:00: in the [place] suspension 00 morning. Medic al Branch lipase-prot Yes 1{capsu Take 1 U nivers ease-amylas 8-29 le} capsule by it y of e (CREON) 00:00: mouth in [facility] -,0 00 the Medical morning Branch unit and 1 capsule capsule at noon and 1 capsule in the evening. Take with meals. ARIPiprazol Yes [id number] 5mg Take 1 [facility] e 5 mg 8-29 tablet by ity of tablet 00:00: mouth in [place] 00 the morning. Branch albuterol Yes 2.5mg Inhale 3 Uni vers 2.5 mg /3 8-29 mL every 4 ity of mL (0.083 00:00: (four) [place] %) 00 hours as Medical nebulizer needed for Bran ch solution Wheezing, Shortness of Breath or Bronchospa sm. gabapentin Yes [id number] 800mg Take 1 [facility] 800 mg 8-29 [id number] tablet by ity of tablet 00:00: mouth in [place] 00 the Medical morning Branch and 1 tablet at noon and 1 tablet in the evening. ketoconazol Yes [id number] Apply to [facility] e 2 % 8-29 area(s) ity of shampoo 00:00: once daily [facility] as needed Medical for Branch Itching. escitalopra Yes [id number] 20mg Take 1 [facility] m oxalate 8-29 tablet by ity o f 20 mg 00:00: mouth in [place] tablet 00 the morning. Branch pantoprazol Yes [id number] 40mg Take 20 mL [facility] e 2 mg/mL 8-29 by mouth ity of oral 00:00: in the [place] suspension 00 morning. Medic al Branch lipase-prot Yes 1{capsu Take 1 U nivers ease-amylas 8-29 le} capsule by it y of e (CREON) 00:00: mouth in [facility] -,0 00 the Medical morning Branch unit and 1 capsule capsule at noon and 1 capsule in the evening. Take with meals. ARIPiprazol Yes [id number] 5mg Take 1 [facility] e 5 mg [...] Breath or Bronchospa sm. gabapentin 2021-0 Yes [id number] 800mg Take 1 [facility] 800 mg 8-29 [id number] tablet by ity of tablet 00:00: mouth in [place] 00 the Medical morning Branch and 1 tablet at noon and 1 tablet in the evening. ketoconazol Yes [id number] Apply to [facility] e 2 % 8-29 area(s) ity of shampoo 00:00: [place] 00 as needed Medical for Branch Itching. escitalopra Yes [id number] 20mg Take 1 [facility] m oxalate 8-29 tablet by ity o f 20 mg 00:00: mouth in [place] tablet 00 the Medical morning. Branch pantoprazol 0 Yes [id number] 40mg Take 20 mL [facility] e 2 [...] evening. Take with meals. ARIPiprazol 0 Yes [id number] 5mg Take 1 [facility] e 5 mg [...] Breath or Bronchospa sm. gabapentin 2021-0 Yes [id number] 800mg Take 1 [facility] 800 mg 8-29 [id number] tablet by ity of tablet 00:00: mouth in [place] 00 the Medical morning Branch and 1 tablet at noon and 1 tablet in the evening. ketoconazol Yes [id number] Apply to [facility] e 2 % 8-29 area(s) ity of shampoo 00:00: [place] 00 as needed Medical for Branch Itching. escitalopra Yes [id number] 20mg Take 1 [facility] m oxalate 8-29 tablet by ity o f 20 mg 00:00: mouth in [place] tablet 00 the Medical morning. Branch pantoprazol Yes [id number] 40mg Take 20 mL [facility] e 2 mg/mL 8-29 by mouth ity of oral 00:00: in the [place] suspension 00 morning. Medic al Branch lipase-prot Yes 1{capsu Take 1 U nivers ease-amylas 8-29 le} capsule by it y of e (CREON) 00:00: mouth in [facility] s 12,000-38,0 00 the Medical 00 -60,000 morning Branch unit and 1 capsule capsule at noon and 1 capsule in the evening. Take with meals. ARIPiprazol Yes [id number] 5mg Take 1 [facility] e 5 mg [...] Breath or Bronchospa sm. gabapentin 0 Yes [id number] 800mg Take 1 [facility] 800 mg 8-29 [id number] tablet by ity of tablet 00:00: mouth in [place] 00 the Medical morning Branch and 1 tablet at noon and 1 tablet in the evening. ketoconazol Yes [id number] Apply to [facility] e 2 % 8-29 area(s) ity of shampoo 00:00: [place] 00 as needed Medical for Branch Itching. escitalopra Yes [id number] 20mg Take 1 [facility] m oxalate 8-29 tablet by ity o f 20 mg 00:00: mouth in [place] tablet 00 the Medical morning. Branch pantoprazol Yes [id number] 40mg Take 20 mL [facility] e 2 mg/mL 8-29 by mouth ity of oral 00:00: in the [place] suspension 00 morning. Medic al Branch lipase-prot Yes 1{capsu Take 1 U nivers ease-amylas 8-29 le} capsule by it y of e (CREON) 00:00: mouth in [facility] -,0 00 the Medical morning Branch unit and 1 capsule capsule at noon and 1 capsule in the evening. Take with meals. ARIPiprazol Yes [id number] 5mg Take 1 [facility] e 5 mg 8-29 tablet by ity of tablet 00:00: mouth in [place] the morning. Branch albuterol Yes 2.5mg Inhale 3 Uni vers 2.5 mg /3 8-29 mL every 4 ity of mL (0.083 00:00: (four) [place] %) 00 hours as Medical nebulizer needed for Bran ch solution Wheezing, Shortness of Breath or Bronchospa sm. gabapentin Yes [id number] 800mg Take 1 [facility] 800 mg 8-29 [id number] tablet by ity of tablet 00:00: mouth in [place] the morning Branch and 1 tablet at noon and 1 tablet in the evening. ketoconazol Yes [id number] Apply to [facility] e 2 % 8-29 area(s) ity of shampoo 00:00: [place] 00 as needed Medical for Branch Itching. escitalopra Yes [id number] 20mg Take 1 [facility] m oxalate 8-29 tablet by ity o f 20 mg 00:00: mouth in [place] tablet 00 the morning. Branch pantoprazol Yes [id number] 40mg Take 20 mL [facility] e 2 mg/mL 8-29 by mouth ity of oral 00:00: in the [place] suspension 00 morning. Medic al Branch lipase-prot Yes 1{capsu Take 1 U nivers ease-amylas 8-29 le} capsule by it y of e (CREON) 00:00: mouth in [facility] -,0 00 the Medical 00 -60,000 morning Branch unit and 1 capsule capsule at noon and 1 capsule in the evening. Take with meals. ARIPiprazol Yes [id number] 5mg Take 1 [facility] e 5 mg 8-29 tablet by ity of tablet 00:00: mouth in [place] 00 the Medical morning. Branch albuterol Yes 2.5mg Inhale 3 Uni vers 2.5 mg /3 8-29 mL every 4 ity of mL (0.083 00:00: (four) [place] %) 00 hours as Medical nebulizer needed for Bran ch solution Wheezing, Shortness of Breath or Bronchospa sm. gabapentin Yes [id number] 800mg Take 1 [facility] 800 mg 8-29 [id number] tablet by ity of tablet 00:00: mouth in [place] 00 the Medical morning Branch and 1 tablet at noon and 1 tablet in the evening. ketoconazol Yes [id number] Apply to [facility] e 2 % 8-29 area(s) ity of shampoo 00:00: once daily [facility] 00 as needed Medical for Branch Itching. escitalopra Yes [id number] 20mg Take 1 [facility] m oxalate 8-29 tablet by ity o f 20 mg 00:00: mouth in [facility] 00 the Medical morning. Branch pantoprazol Yes [id number] 40mg Take 20 mL [facility] e 2 [...] the evening. Take with meals. ARIPiprazol Yes [id number] 5mg Take 1 [facility] e 5 mg 8-29 tablet by ity of tablet 00:00: mouth in [place] 00 the Medical morning. Branch albuterol Yes 2.5mg Inhale 3 Uni vers 2.5 mg /3 8-29 mL every 4 ity of mL (0.083 00:00: (four) [place] %) 00 hours as Medical nebulizer needed for Bran ch solution Wheezing, Shortness of Breath or Bronchospa sm. gabapentin Yes [id number] 800mg Take 1 [facility] 800 mg 8-29 [id number] tablet by ity of tablet 00:00: mouth in [place] 00 the Medical morning Branch and 1 tablet at noon and 1 tablet in the evening. ketoconazol Yes [id number] Apply to [facility] e 2 % 8-29 area(s) ity of shampoo 00:00: [place] 00 as needed Medical for Branch Itching. escitalopra Yes [id number] 20mg Take 1 [facility] m oxalate 8-29 tablet by ity o f 20 mg 00:00: mouth in [place] tablet 00 the Medical morning. Branch pantoprazol Yes [id number] 40mg Take 20 mL [facility] e 2 mg/mL 8-29 by mouth ity of oral 00:00: in the [place] [facility] 00 morning. Medic al Branch lipase-prot Yes 1{capsu Take 1 U nivers ease-amylas 8-29 le} capsule by it y of e (CREON) 00:00: [place] 12,000-38,0 00 the Medical 00 -60,000 morning Branch unit and 1 capsule capsule at noon and 1 capsule in the evening. Take with meals. ARIPiprazol Yes [id number] 5mg Take 1 [facility] e 5 mg 8-29 tablet by ity of tablet 00:00: mouth in [place] 00 the Medical morning. Branch albuterol Yes 2.5mg Inhale 3 Uni vers 2.5 mg /3 8-29 mL every 4 ity of mL (0.083 00:00: (four) [place] %) 00 hours as Medical nebulizer needed for Bran ch solution Wheezing, Shortness of Breath or Bronchospa sm. gabapentin Yes [id number] 800mg Take 1 [facility] 800 mg 8-29 [id number] tablet by ity of tablet 00:00: mouth in [place] 00 the Medical morning Branch and 1 tablet at noon and 1 tablet in the evening. ketoconazol Yes [id number] Apply to [facility] e 2 % 8-29 area(s) ity of shampoo 00:00: [place] daily [place] 00 as needed Medical for Branch Itching. escitalopra Yes [id number] 20mg Take 1 [facility] m oxalate 8-29 tablet by ity o f 20 mg 00:00: mouth in [place] tablet 00 the Medical morning. Branch pantoprazol Yes [id number] 40mg Take 20 mL [facility] e 2 [...] the evening. Take with meals. ARIPiprazol Yes [id number] 5mg Take 1 [facility] e 5 mg 8-29 tablet by ity of tablet 00:00: mouth in [place] 00 the morning. Branch albuterol Yes 2.5mg Inhale 3 Uni vers 2.5 mg /3 8-29 mL every 4 ity of mL (0.083 00:00: (four) [place] %) 00 hours as Medical nebulizer needed for Bran ch solution Wheezing, Shortness of Breath or Bronchospa sm. gabapentin Yes [id number] 800mg Take 1 [facility] 800 mg 8-29 [id number] tablet by ity of tablet 00:00: mouth in [place] 00 the Medical morning Branch and 1 tablet at noon and 1 tablet in the evening. ketoconazol Yes [id number] Apply to [facility] e 2 % 8-29 area(s) ity of shampoo 00:00: [place] daily [place] 00 as needed Medical for Branch Itching. escitalopra Yes [id number] 20mg Take 1 [facility] m oxalate 8-29 tablet by ity o f 20 mg 00:00: mouth in [place] tablet 00 the Medical morning. Branch pantoprazol Yes [id number] 40mg Take 20 mL [facility] e 2 mg/mL 8-29 by mouth ity of oral 00:00: in the [place] suspension morning. Medic al Branch lipase-prot Yes 1{capsu Take 1 U nivers ease-amylas 8-29 le} capsule by it y of e (CREON) 00:00: mouth in [facility] s -,0 00 the Medical morning Branch unit and 1 capsule capsule at noon and 1 capsule in the evening. Take with meals. ARIPiprazol Yes [id number] 5mg Take 1 [facility] e 5 mg 8-29 tablet by ity of tablet 00:00: mouth in [place] 00 the Medical morning. Branch albuterol Yes 2.5mg Inhale 3 Uni vers 2.5 mg /3 8-29 mL every 4 ity of mL (0.083 00:00: (four) [place] %) 00 hours as Medical nebulizer needed for Bran ch solution Wheezing, Shortness of Breath or Bronchospa sm. gabapentin Yes [id number] 800mg Take 1 [facility] 800 mg 8-29 [id number] tablet by ity of tablet 00:00: mouth in [place] 00 the Medical morning Branch and 1 tablet at noon and 1 tablet in the evening. ketoconazol Yes [id number] Apply to [facility] e 2 % 8-29 area(s) ity of shampoo 00:00: [place] daily [place] 00 as needed Medical for Branch Itching. escitalopra Yes [id number] 20mg Take 1 [facility] m oxalate 8-29 tablet by ity o f 20 mg 00:00: mouth in [place] tablet 00 the Medical morning. Branch pantoprazol Yes [id number] 40mg Take 20 mL [facility] e 2 mg/mL 8-29 by mouth ity of oral 00:00: in the [place] suspension 00 morning. Medic al Branch lipase-prot Yes 1{capsu Take 1 U nivers ease-amylas 8-29 le} capsule by it y of e (CREON) 00:00: mouth in [facility] -,0 00 the Medical morning Branch unit and 1 capsule capsule at noon and 1 capsule in the evening. Take with meals. ARIPiprazol Yes [id number] 5mg Take 1 Univers e 5 mg [...] Breath or Bronchospa sm. gabapentin 0 Yes [id number] 800mg Take 1 [facility] 800 mg 8-29 [id number] tablet by ity of tablet 00:00: mouth in [place] 00 the Medical morning Branch and 1 tablet at noon and 1 tablet in the evening. ketoconazol Yes [id number] Apply to [facility] e 2 % 8-29 area(s) ity of shampoo 00:00: once daily [place] 00 as needed Medical for Branch Itching. escitalopra Yes [id number] 20mg Take 1 [facility] m oxalate 8-29 tablet by ity o f 20 mg 00:00: mouth in [place] tablet 00 the Medical morning. Branch pantoprazol Yes [id number] 40mg Take 20 mL [facility] e 2 [...] the evening. Take with meals. ARIPiprazol Yes [id number] 5mg Take 1 [facility] e 5 mg [...] Breath or Bronchospa sm. ketoconazol 0 Yes [id number] Apply to [facility] e 2 % 8-29 area(s) ity of shampoo 00:00: once daily [place] 00 as needed Medical for Branch Itching. escitalopra Yes [id number] 20mg Take 1 [facility] m oxalate 8-29 tablet by ity o f 20 mg 00:00: mouth in [place] tablet 00 the Medical morning. Branch pantoprazol Yes [id number] 40mg Take 20 mL [facility] e 2 [...] the evening. Take with meals. ARIPiprazol Yes [id number] 5mg Take 1 [facility] e 5 mg 8-29 tablet by ity of tablet 00:00: mouth in [place] 00 the Medical morning. Branch albuterol Yes 2.5mg Inhale 3 Uni vers 2.5 mg /3 8-29 mL every 4 ity of mL (0.083 00:00: (four) [place] %) 00 hours as Medical nebulizer needed for Bran ch solution Wheezing, Shortness of Breath or Bronchospa sm. ketoconazol Yes [id number] Apply to [facility] e 2 % 8-29 area(s) ity of shampoo 00:00: once daily [place] 00 as needed Medical for Branch Itching. escitalopra Yes [id number] 20mg Take 1 [facility] m oxalate 8-29 tablet by ity o f 20 mg 00:00: mouth in [place] tablet 00 the Medical morning. Branch pantoprazol Yes [id number] 40mg Take 20 mL Univers e 2 [...] evening. Take with meals. ARIPiprazol 2021-0 Yes [id number] 5mg Take 1 [facility] e 5 mg [...] Breath or Bronchospa sm. ketoconazol 2021-0 Yes [id number] Apply to [facility] e 2 % 8-29 area(s) ity of shampoo 00:00: once daily [place] 00 as needed Medical for Branch Itching. escitalopra 2021-0 Yes [id number] 20mg Take 1 [facility] m oxalate 8-29 tablet by ity o f 20 mg 00:00: mouth in [facility] 00 the Medical morning. Branch pantoprazol 2021-0 Yes [id number] 40mg Take 20 mL Univers e 2 mg/mL 8-29 by mouth ity of oral 00:00: in the [facility] 00 morning. Medic al Branch lipase-prot 0 Yes 1{capsu Take 1 U nivers ease-amylas 8-29 le} capsule by it y of e (CREON) 00:00: [place] 12,000-38,0 00 the Medical 00 -60,000 morning Branch unit and 1 capsule capsule at noon and 1 capsule in the evening. Take with meals. ARIPiprazol 2021-0 Yes [id number] 5mg Take 1 [facility] e 5 mg 8-29 tablet by ity of tablet 00:00: mouth in [place] 00 the Medical morning. Branch albuterol 2021-0 Yes 2.5mg Inhale 3 Uni vers 2.5 mg /3 8-29 mL every 4 ity of mL (0.083 00:00: (four) [place] %) 00 hours as Medical nebulizer needed for Bran ch solution Wheezing, Shortness of Breath or Bronchospa sm. ketoconazol 2021-0 Yes [id number] Apply to [facility] e 2 % 8-29 area(s) ity of shampoo 00:00: once daily [place] 00 as needed Medical for Branch Itching. escitalopra Yes [id number] 20mg Take 1 [facility] m oxalate 8-29 tablet by ity o f 20 mg 00:00: mouth in [place] tablet 00 the Medical morning. Branch pantoprazol Yes [id number] 40mg Take 20 mL Univers e 2 [...] the evening. Take with meals. ARIPiprazol Yes [id number] 5mg Take 1 [facility] e 5 mg 8-29 tablet by ity of tablet 00:00: mouth in [place] 00 the Medical morning. Branch albuterol Yes 2.5mg Inhale 3 Uni vers 2.5 mg /3 8-29 mL every 4 ity of mL (0.083 00:00: (four) [place] %) 00 hours as Medical nebulizer needed for Bran ch solution Wheezing, Shortness of Breath or Bronchospa sm. ketoconazol Yes [id number] Apply to [facility] e 2 % 8-29 area(s) ity of shampoo 00:00: once daily [place] 00 as needed Medical for Branch Itching. escitalopra Yes [id number] 20mg Take 1 [facility] m oxalate 8-29 tablet by ity o f 20 mg 00:00: mouth in [place] tablet 00 the Medical morning. Branch pantoprazol Yes [id number] 40mg Take 20 mL [facility] e 2 [...] evening. Take with meals. ARIPiprazol 2021-0 Yes [id number] 5mg Take 1 [facility] e 5 mg [...] Breath or Bronchospa sm. ketoconazol 2021-0 Yes [id number] Apply to [facility] e 2 % 8-29 area(s) ity of shampoo 00:00: once daily [place] 00 as needed Medical for Branch Itching. escitalopra 2021-0 Yes [id number] 20mg Take 1 [facility] m oxalate 8-29 tablet by ity o f 20 mg 00:00: mouth in [facility] 00 the Medical morning. Branch pantoprazol 0 Yes [id number] 40mg Take 20 mL [facility] e 2 mg/mL 8-29 by mouth ity of oral 00:00: in the [facility] 00 morning. Medic al Branch lipase-prot 0 Yes 1{capsu Take 1 U nivers ease-amylas 8-29 le} capsule by it y of e (CREON) 00:00: [place] 12,000-38,[place] 00 the Medical 00 -60,000 morning Branch unit and 1 capsule capsule at noon and 1 capsule in the evening. Take with meals. ARIPiprazol 2021-0 Yes [id number] 5mg Take 1 [facility] e 5 mg 8-29 tablet by ity of tablet 00:00: mouth in [place] 00 the Medical morning. Branch albuterol 2021-0 Yes 2.5mg Inhale 3 Uni vers 2.5 mg /3 8-29 mL every 4 ity of mL (0.083 00:00: (four) [place] %) 00 hours as Medical nebulizer needed for Bran ch solution Wheezing, Shortness of Breath or Bronchospa sm. ketoconazol 2021-0 Yes [id number] Apply to [facility] e 2 % 8-29 area(s) ity of shampoo 00:00: once daily [place] 00 as needed Medical for Branch Itching. escitalopra Yes [id number] 20mg Take 1 Univers m oxalate 8-29 tablet by ity o f 20 mg 00:00: mouth in [place] tablet 00 the Medical morning. Branch pantoprazol Yes [id number] 40mg Take 20 mL Univers e 2 [...] the evening. Take with meals. ARIPiprazol Yes [id number] 5mg Take 1 [facility] e 5 mg 8-29 tablet by ity of tablet 00:00: mouth in [place] 00 the Medical morning. Branch albuterol Yes 2.5mg Inhale 3 Uni vers 2.5 mg /3 8-29 mL every 4 ity of mL (0.083 00:00: (four) [place] %) 00 hours as Medical nebulizer needed for Bran ch solution Wheezing, Shortness of Breath or Bronchospa sm. ketoconazol Yes [id number] Apply to Univers e 2 % 8-29 area(s) ity of shampoo 00:00: once daily [place] 00 as needed Medical for Branch Itching. escitalopra Yes [id number] 20mg Take 1 Univers m oxalate 8-29 tablet by ity o f 20 mg 00:00: mouth in [place] tablet 00 the Medical morning. Branch pantoprazol Yes [id number] 40mg Take 20 mL Univers e 2 [...] evening. Take with meals. ARIPiprazol 2021-0 Yes [id number] 5mg Take 1 Univers e 5 mg [...] Breath or Bronchospa sm. ketoconazol 2021-0 Yes [id number] Apply to [facility] e 2 % 8-29 area(s) ity of shampoo 00:00: once daily [place] 00 as needed Medical for Branch Itching. escitalopra 2021-0 Yes [id number] 20mg Take 1 Univers m oxalate 8-29 tablet by ity o f 20 mg 00:00: mouth in [facility] 00 the Medical morning. Branch pantoprazol 0 Yes [id number] 40mg Take 20 mL Univers e 2 mg/mL 8-29 by mouth ity of oral 00:00: in the [facility] 00 morning. Medic al Branch lipase-prot 0 Yes 1{capsu Take 1 U nivers ease-amylas 8-29 le} capsule by it y of e (CREON) 00:00: [place] 12[place]000-38,[place] 00 the Medical 00 -60,000 morning Branch unit and 1 capsule capsule at noon and 1 capsule in the evening. Take with meals. ARIPiprazol 2021-0 Yes [id number] 5mg Take 1 Univers e 5 mg [...] Breath or Bronchospa sm. ketoconazol 2021-0 Yes [id number] Apply to [facility] e 2 % 8-29 area(s) ity of shampoo 00:00: once daily [place] 00 as needed Medical for Branch Itching. escitalopra Yes [id number] 20mg Take 1 [facility] m oxalate 8-29 [...] the evening. Take with meals. ARIPiprazol Yes [id number] 5mg Take 1 [facility] e 5 mg 8-29 tablet by ity of tablet 00:00: mouth in [place] 00 the Medical morning. Branch albuterol Yes 2.5mg Inhale 3 Uni vers 2.5 mg /3 8-29 mL every 4 ity of mL (0.083 00:00: (four) [place] %) 00 hours as Medical nebulizer needed for Bran ch solution Wheezing, Shortness of Breath or Bronchospa sm. ketoconazol Yes [id number] Apply to Univers e 2 % 8-29 area(s) ity of shampoo 00:00: once daily [place] 00 as needed Medical for Branch Itching. escitalopra Yes [id number] 20mg Take 1 Univers m oxalate 8-29 tablet by ity o f 20 mg 00:00: mouth in [place] tablet 00 the Medical morning. Branch lipase-prot Yes 1{capsu Take 1 U nivers ease-amylas 8-29 le} capsule by it y of e (CREON) 00:00: mouth in [facility] s -,0 00 the Medical morning Branch unit and 1 capsule capsule at noon and 1 capsule in the evening. Take with meals. ARIPiprazol Yes [id number] 5mg Take 1 Univers e 5 mg 8-29 tablet by ity of tablet 00:00: mouth in [place] 00 the Medical morning. Branch albuterol Yes 2.5mg Inhale 3 Uni vers 2.5 mg /3 8-29 mL every 4 ity of mL (0.083 00:00: (four) [place] %) 00 hours as Medical nebulizer needed for Bran ch solution Wheezing, Shortness of Breath or Bronchospa sm. ketoconazol Yes [id number] Apply to [facility] [place] [facility] e 2 % 8-29 area(s) ity of shampoo 00:00: once daily [place] 00 as needed Medical for Branch Itching. escitalopra 2021-0 Yes [id number] 20mg Take 1 Univers m oxalate 8-29 tablet by ity o f 20 mg 00:00: mouth in [place] tablet 00 the Medical morning. Branch lipase-prot 0 Yes 1{capsu Take 1 U nivers ease-amylas 8-29 le} capsule by it y of e (CREON) 00:00: [place] -[place] 00 the Medical -60,000 morning Branch unit and 1 capsule capsule at noon and 1 capsule in the evening. Take with meals. ARIPiprazol 0 Yes [id number] 5mg Take 1 Univers e 5 mg [...] Breath or Bronchospa sm. ketoconazol 0 Yes [id number] Apply to [facility] [place] [facility] e 2 % 8-29 area(s) ity of shampoo 00:00: once daily [place] 00 as needed Medical for Branch Itching. escitalopra 2021-0 Yes [id number] 20mg Take 1 Univers m oxalate 8-29 tablet by ity o f 20 mg 00:00: mouth in [place] tablet 00 the Medical morning. Branch lipase-prot 0 Yes 1{capsu Take 1 U nivers ease-amylas 8-29 le} capsule by it y of e (CREON) 00:00: mouth [place] ,000-38,0 00 the Medical -60,000 morning Branch unit and 1 capsule capsule at noon and 1 capsule in the evening. Take with meals. ARIPiprazol 2021-0 Yes [id number] 5mg Take 1 Univers e 5 mg [...] Breath or Bronchospa sm. ketoconazol 2021-0 Yes [id number] Apply to [facility] e 2 % 8-29 area(s) ity of shampoo 00:00: once daily [place] 00 as needed Medical for Branch Itching. escitalopra 2021-0 Yes [id number] 20mg Take 1 Univers m oxalate 8-29 tablet by ity o f 20 mg 00:00: mouth in [place] tablet 00 the Medical morning. Branch ARIPiprazol 2021-0 Yes [id number] 5mg Take 1 [facility] e 5 mg [...] Breath or Bronchospa sm. ketoconazol 2021-0 Yes [id number] Apply to [facility] e 2 % 8-29 area(s) ity of shampoo 00:00: once daily [place] 00 as needed Medical for Branch Itching. escitalopra 2021-0 Yes [id number] 20mg Take 1 Univers m oxalate 8-29 tablet by ity o f 20 mg 00:00: mouth in [place] tablet 00 the Medical morning. Branch ARIPiprazol 2021-0 Yes [id number] 5mg Take 1 [facility] e 5 mg 8-29 tablet by ity of tablet 00:00: mouth in [place] 00 the Medical morning. Branch ketoconazol 2021-0 Yes [id number] Apply to [facility] e 2 % 8-29 area(s) ity of shampoo 00:00: once daily [place] 00 as needed Medical for Branch Itching. escitalopra 2021-0 Yes [id number] 20mg Take 1 Univers m oxalate 8-29 tablet by ity o f 20 mg 00:00: mouth in [place] tablet 00 the Medical morning. Branch ARIPiprazol 2021-0 Yes [id number] 5mg Take 1 [facility] e 5 mg 8-29 tablet by ity of tablet 00:00: mouth in [place] 00 the Medical morning. Branch ketoconazol 2021-0 Yes [id number] Apply to [facility] e 2 % 8-29 area(s) ity of shampoo 00:00: once [place] [facility] for Branch Itching. escitalopra 2021-0 Yes [id number] 20mg Take 1 [facility] oxalate 8-29 tablet by ity o f 20 mg 00:00: mouth in [place] tablet 00 the Medical morning. Branch ARIPiprazol 2021-0 Yes [id number] 5mg Take 1 [facility] e 5 mg 8-29 tablet by ity of tablet 00:00: mouth in [place] 00 the Medical morning. Branch ketoconazol 2021-0 Yes [id number] Apply to [facility] e 2 % 8-29 area(s) ity of shampoo 00:00: once [place] 00 as needed Medical for Branch Itching. escitalopra 2021-0 Yes [id number] 20mg Take 1 [facility] m oxalate 8-29 tablet by ity o f 20 mg 00:00: mouth in [place] tablet 00 the Medical morning. Branch ARIPiprazol 2021-0 Yes [id number] 5mg Take 1 [facility] e 5 mg 8-29 tablet by ity of tablet 00:00: mouth in [place] 00 the Medical morning. Branch ketoconazol 2021-0 Yes [id number] Apply to [facility] e 2 % 8-29 area(s) ity of shampoo 00:00: once [place] 00 as needed Medical for Branch Itching. ARIPiprazol 2021-0 Yes [id number] 5mg Take 1 [facility] e 5 mg 8-29 tablet by ity of tablet 00:00: mouth in [place] 00 the Medical morning. Branch ketoconazol 2021-0 Yes [id number] Apply to [facility] e 2 % 8-29 area(s) ity of shampoo 00:00: once daily [place] 00 as needed Medical for Branch Itching. ARIPiprazol 2021-0 Yes [id number] 5mg Take 1 [facility] e 5 mg 8-29 tablet by ity of tablet 00:00: mouth in [place] 00 the Medical morning. Branch ketoconazol 2021-0 Yes [id number] Apply to [facility] e 2 % 8-29 area(s) ity of shampoo 00:00: once daily [place] 00 as needed Medical for Branch Itching. ARIPiprazol 2021-0 Yes [id number] 5mg Take 1 [facility] e 5 mg 8-29 tablet by ity of tablet 00:00: mouth in [place] 00 the Medical morning. Branch ketoconazol 2021-0 Yes [id number] Apply to [facility] e 2 % 8-29 area(s) ity of shampoo 00:00: once daily [place] 00 as needed Medical for Branch Itching. ARIPiprazol 2021-0 Yes [id number] 5mg Take 1 [facility] e 5 mg 8-29 tablet by ity of tablet 00:00: mouth in [place] 00 the Medical morning. Branch ketoconazol 2021-0 Yes [id number] Apply to [facility] e 2 % 8-29 area(s) ity of shampoo 00:00: once daily [place] 00 as needed Medical for Branch Itching. ARIPiprazol 2021-0 Yes [id number] 5mg Take 1 [facility] e 5 mg 8-29 tablet by ity of tablet 00:00: mouth in [place] 00 the Medical morning. Branch ketoconazol 2021-0 Yes [id number] Apply to [facility] e 2 % 8-29 area(s) ity of shampoo 00:00: once daily [place] 00 as needed Medical for Branch Itching. ARIPiprazol 2021-0 Yes [id number] 5mg Take 1 [facility] e 5 mg 8-29 tablet by ity of tablet 00:00: mouth in [place] 00 the Medical morning. Branch ketoconazol 2021-0 Yes [id number] Apply to [facility] e 2 % 8-29 area(s) ity of shampoo 00:00: once daily [place] 00 as needed Medical for Branch Itching. ARIPiprazol 2021-0 Yes [id number] 5mg Take 1 [facility] e 5 mg 8-29 tablet by ity of tablet 00:00: mouth in [place] 00 the Medical morning. Branch ketoconazol Yes [id number] Apply to [facility] e 2 % 8-29 area(s) ity of shampoo 00:00: once daily [place] 00 as needed Medical for Branch Itching. ARIPiprazol 0 Yes [id number] 5mg Take 1 [facility] e 5 mg 8-29 tablet by ity of tablet 00:00: mouth in [place] 00 the Medical morning. Branch ketoconazol Yes [id number] Apply to [facility] e 2 % 8-29 area(s) ity of shampoo 00:00: once daily [place] 00 as needed Medical for Branch Itching. ARIPiprazol 0 Yes [id number] 5mg Take 1 [facility] e 5 mg 8-29 tablet by ity of tablet 00:00: mouth in [place] 00 the Medical morning. Branch ketoconazol Yes [id number] Apply to [facility] e 2 % 8-29 area(s) ity of shampoo 00:00: once daily [place] 00 as needed Medical for Branch Itching. ARIPiprazol 0 Yes [id number] 5mg Take 1 [facility] e 5 mg 8-29 tablet by ity of tablet 00:00: mouth in [place] 00 the Medical morning. Branch ketoconazol Yes [id number] Apply to [facility] e 2 % 8-29 area(s) ity of shampoo 00:00: once daily [place] 00 as needed Medical for Branch Itching. ketoconazol Yes [id number] Apply to [facility] e 2 % 8-29 area(s) ity of shampoo 00:00: once daily [place] 00 as needed Medical for Branch Itching. ketoconazol 0 Yes [id number] Apply to [facility] 2 % 8-29 area(s) ity of shampoo 00:00: once daily [place] 00 as needed Medical for Branch Itching. ketoconazol 0 Yes [id number] Apply to [facility] e 2 % 8-29 area(s) ity of shampoo 00:00: once daily [place] 00 as needed Medical for Branch Itching. ketoconazol 2022- No [id number] Apply to [facility] e 2 % 11-27 area(s) ity of shampoo 00:00: 00:00 once daily [place] 00 :00 as needed Medical for Branch Itching. ARIPiprazol 2022- No [id number] 5mg Take 1 [facility] e 5 mg 11-27 tablet by ity of tablet 00:00: 00:00 mouth in [place] 00 :00 the Medical morning. Branch ARIPiprazol 2022- No [id number] 5mg Take 1 [facility] e 5 mg 11-27 tablet by ity of tablet 00:00: 00:00 mouth in [place] 00 :00 the Medical morning. Branch escitalopra 2022- No [id number] 20mg Take 1 [facility] m oxalate 11-27 tablet by ity of 20 mg 00:00: 00:00 mouth in [place] tablet 00 :00 the Medical morning. Branch albuterol No 2.5mg Inhale 3 Un maddie 2.5 [...] No 1{capsu Take 1 [facility] ease-amylas 11-27 07-12 le} capsule by i ty of e (CREON) 00:00: 00:00 mouth in [place] 12,000-38,0 00 :00 the Medical 00 -60,000 morning Branch unit and 1 capsule capsule at noon and 1 capsule in the evening. Take with meals. pantoprazol 2022- No [id number] 40mg Take 20 mL [facility] e 2 mg/mL 11-2730 by mouth ity o f oral 00:00: 00:00 in the [place] suspension 00 :00 morning. Medic al Branch pantoprazol 2022- No [id number] 40mg Take 20 mL [facility] e 2 mg/mL 11-27 by mouth ity o f oral 00:00: 00:00 in the [place] suspension 00 :00 morning. Medic al Branch gabapentin 2022- No [id number] 800mg Take 1 [facility] 800 mg 11-27 [id number] tablet by ity o f tablet 00:00: 00:00 mouth in [place] 00 :00 the Medical morning Branch and 1 tablet at noon and 1 tablet in the evening. escitalopra 2021- No [id number] 20mg Take 1 [facility] m oxalate 08-14 tablet by ity of 20 mg 00:00: 00:00 mouth [place] tablet 00 :00 daily. Medical Branch levothyroxi Yes [id number] 1 tablet [facility] ne 137 mcg 5-13 PO every ity o f tablet 00:00: other day [place] 00 Medical Branch levothyroxi 0 Yes [id number] 1 tablet [facility] ne 137 mcg 5-13 PO every ity o f tablet 00:00: other day [place] 00 Medical Branch levothyroxi 0 2021- No [id number] 1 tablet [facility] ne 137 mcg 5-13 10-11 PO every ity of tablet 00:00: 00:00 other day [place] 00 :00 Medical Branch gabapentin 2021- No [id number] 800mg Take 1 [facility] 800 mg 08-09 [id number] tablet by ity o f tablet 00:00: 00:00 mouth 2 [place] 00 :00 (two) Medical times Branch daily. ferrous Yes 300mg Take 300 Unive rs sulfate 300 4-12 mg by ity of mg (60 mg 13:49: mouth 2 [place] iron)/5 mL 44 (two) Medical solution times Branch daily. atorvastati Yes 80mg Take 80 mg [facility] n 80 mg 4-12 by mouth ity of tablet 13:49: at [place] 44 bedtime. Medical Branch ferrous 2021-0 Yes 300mg Take 300 Unive rs sulfate 300 4-12 mg by ity of mg (60 mg 13:49: mouth 2 [place] iron)/5 mL 44 (two) Medical solution times Branch daily. atorvastati 2022-0 Yes 80mg Take 80 mg [facility] n 80 mg 4-12 by mouth ity of tablet 13:49: at [place] [address] bedtime. Medical Branch ferrous 2022-0 Yes 300mg Take 300 Unive rs sulfate 300 4-12 mg by ity of mg (60 mg 13:49: mouth 2 [place] iron)/5 mL 44 (two) Medical solution times Branch daily. atorvastati 2022-0 Yes 80mg Take 80 mg [facility] n 80 mg 4-12 by mouth ity of tablet 13:49: at [place] [address] bedtime. Medical Branch ferrous 2022-0 Yes 300mg Take 300 Unive rs sulfate 300 4-12 mg by ity of mg (60 mg 13:49: mouth 2 [place] iron)/5 mL 44 (two) Medical solution times Branch daily. atorvastati 2022-0 Yes 80mg Take 80 mg [facility] n 80 mg 4-12 by mouth ity of tablet 13:49: at [place] [address] bedtime. Medical Branch ferrous 2022-0 Yes 300mg Take 300 Unive rs sulfate 300 4-12 mg by ity of mg (60 mg 13:49: mouth 2 [place] iron)/5 mL 44 (two) Medical solution times Branch daily. atorvastati 2022-0 Yes 80mg Take 80 mg [facility] n 80 mg 4-12 by mouth ity of tablet 13:49: at [place] [address] bedtime. Medical Branch ferrous 2022-0 Yes 300mg Take 300 Unive rs sulfate 300 4-12 mg by ity of mg (60 mg 13:49: mouth 2 [place] iron)/5 mL 44 (two) Medical solution times Branch daily. atorvastati 2022-0 Yes 80mg Take 80 mg [facility] n 80 mg 4-12 by mouth ity of tablet 13:49: at [place] [address] bedtime. Medical Branch ferrous 2022-0 Yes 300mg Take 300 Unive rs sulfate 300 4-12 mg by ity of mg (60 mg 13:49: mouth 2 [place] iron)/5 mL 44 (two) Medical solution times Branch daily. atorvastati 2022-0 Yes 80mg Take 80 mg [facility] n 80 mg 4-12 by mouth ity of tablet 13:49: at [place] [address] bedtime. Medical Branch ferrous 2022-0 Yes 300mg Take 300 Unive rs sulfate 300 4-12 mg by ity of mg (60 mg 13:49: mouth 2 [place] iron)/5 mL 44 (two) Medical solution times Branch daily. atorvastati 2022-0 Yes 80mg Take 80 mg [facility] n 80 mg 4-12 by mouth ity of tablet 13:49: at [place] [address] bedtime. Medical Branch ferrous 2022-0 Yes 300mg Take 300 Unive rs sulfate 300 4-12 mg by ity of mg (60 mg 13:49: mouth 2 [place] iron)/5 mL 44 (two) Medical solution times Branch daily. atorvastati 2022-0 Yes 80mg Take 80 mg [facility] n 80 mg 4-12 by mouth ity of tablet 13:49: at [place] [address] bedtime. Medical Branch ferrous 2022-0 Yes 300mg Take 300 Unive rs sulfate 300 4-12 mg by ity of mg (60 mg 13:49: mouth 2 [place] iron)/5 mL 44 (two) Medical solution times Branch daily. atorvastati 2022-0 Yes 80mg Take 80 mg [facility] n 80 mg 4-12 by mouth ity of tablet 13:49: at [place] [address] bedtime. Medical Branch ferrous 2022-0 Yes 300mg Take 300 Unive rs sulfate 300 4-12 mg by ity of mg (60 mg 13:49: mouth 2 [place] iron)/5 mL 44 (two) Medical solution times Branch daily. atorvastati 2022-0 Yes 80mg Take 80 mg [facility] n 80 mg 4-12 by mouth ity of tablet 13:49: at [place] [address] bedtime. Medical Branch ferrous 2022-0 Yes 300mg Take 300 Unive rs sulfate 300 4-12 mg by ity of mg (60 mg 13:49: mouth 2 [place] iron)/5 mL 44 (two) Medical solution times Branch daily. atorvastati 2022-0 Yes 80mg Take 80 mg [facility] n 80 mg 4-12 by mouth ity of tablet 13:49: at [place] [address] bedtime. Medical Branch ferrous 2022-0 Yes 300mg Take 300 Unive rs sulfate 300 4-12 mg by ity of mg (60 mg 13:49: mouth 2 [place] iron)/5 mL 44 (two) Medical solution times Branch daily. atorvastati 2022-0 Yes 80mg Take 80 mg [facility] n 80 mg 4-12 by mouth ity of tablet 13:49: at [place] [address] bedtime. Medical Branch ferrous 2022-0 Yes 300mg Take 300 Unive rs sulfate 300 4-12 mg by ity of mg (60 mg 13:49: mouth 2 [place] iron)/5 mL 44 (two) Medical solution times Branch daily. atorvastati 2022-0 Yes 80mg Take 80 mg [facility] n 80 mg 4-12 by mouth ity of tablet 13:49: at [place] [address] bedtime. Medical Branch ferrous 2022-0 Yes 300mg Take 300 Unive rs sulfate 300 4-12 mg by ity of mg (60 mg 13:49: mouth 2 [place] iron)/5 mL 44 (two) Medical solution times Branch daily. atorvastati 2022-0 Yes 80mg Take 80 mg [facility] n 80 mg 4-12 by mouth ity of tablet 13:49: at [place] [address] bedtime. Medical Branch ferrous 2022-0 Yes 300mg Take 300 Unive rs sulfate 300 4-12 mg by ity of mg (60 mg 13:49: mouth 2 [place] iron)/5 mL 44 (two) Medical solution times Branch daily. atorvastati 2022-0 Yes 80mg Take 80 mg [facility] n 80 mg 4-12 by mouth ity of tablet 13:49: at [place] [address] bedtime. Medical Branch ferrous 2022-0 Yes 300mg Take 300 Unive rs sulfate 300 4-12 mg by ity of mg (60 mg 13:49: mouth 2 [place] iron)/5 mL 44 (two) Medical solution times Branch daily. atorvastati 2022-0 Yes 80mg Take 80 mg [facility] n 80 mg 4-12 by mouth ity of tablet 13:49: at [place] [address] bedtime. Medical Branch ferrous 2022-0 Yes 300mg Take 300 Unive rs sulfate 300 4-12 mg by ity of mg (60 mg 13:49: mouth 2 [place] iron)/5 mL 44 (two) Medical solution times Branch daily. atorvastati 2022-0 Yes 80mg Take 80 mg [facility] n 80 mg 4-12 by mouth ity of tablet 13:49: at [place] [address] bedtime. Medical Branch ferrous 2022-0 Yes 300mg Take 300 Unive rs sulfate 300 4-12 mg by ity of mg (60 mg 13:49: mouth 2 [place] iron)/5 mL 44 (two) Medical solution times Branch daily. atorvastati 2021-0 Yes 80mg Take 80 mg [facility] n 80 mg 4-12 by mouth ity of tablet 13:49: at [place] [address] bedtime. Medical Branch ferrous 2021-0 Yes 300mg Take 300 Unive rs sulfate 300 4-12 mg by ity of mg (60 mg 13:49: mouth 2 [place] iron)/5 mL 44 (two) Medical solution times Branch daily. atorvastati 2021-0 Yes 80mg Take 80 mg [facility] n 80 mg 4-12 by mouth ity of tablet 13:49: at [place] [address] bedtime. Medical Branch ferrous 2021-0 Yes 300mg Take 300 Unive rs sulfate 300 4-12 mg by ity of mg (60 mg 13:49: mouth 2 [place] iron)/5 mL 44 (two) Medical solution times Branch daily. atorvastati 2021-0 Yes 80mg Take 80 mg [facility] n 80 mg 4-12 by mouth ity of tablet 13:49: at [place] [address] bedtime. Medical Branch atorvastati 2021-0 Yes 80mg Take 80 mg [facility] n 80 mg 4-12 by mouth ity of tablet 13:49: at [place] [address] bedtime. Medical Branch atorvastati 2021-0 Yes 80mg Take 80 mg [facility] n 80 mg 4-12 by mouth ity of tablet 13:49: at [place] [address] bedtime. Medical Branch atorvastati 0 Yes 80mg Take 80 mg [facility] n 80 mg 4-12 by mouth ity of tablet 13:49: at [place] [address] bedtime. Medical Branch atorvastati 2021-0 Yes 80mg Take 80 mg [facility] n 80 mg 4-12 by mouth ity of tablet 13:49: at [place] [address] bedtime. Medical Branch atorvastati 2021-0 Yes 80mg Take 80 mg [facility] n 80 mg 4-12 by mouth ity of tablet 13:49: at [place] [address] bedtime. Medical Branch atorvastati 2021-0 Yes 80mg Take 80 mg [facility] n 80 mg 4-12 by mouth ity of tablet 13:49: at [place] [address] bedtime. Medical Branch atorvastati 2021-0 Yes 80mg Take 80 mg [facility] n 80 mg 4-12 by mouth ity of tablet 13:49: at [place] [address] bedtime. Medical Branch atorvastati Yes 80mg Take 80 mg [facility] n 80 mg 4-12 by mouth ity of tablet 13:49: at [place] [address] bedtime. Medical Branch atorvastati Yes 80mg Take 80 mg [facility] n 80 mg 4-12 by mouth ity of tablet 13:49: at [place] [address] bedtime. Medical Branch atorvastati Yes 80mg Take 80 mg [facility] n 80 mg 4-12 by mouth ity of tablet 13:49: at [place] [address] bedtime. Medical Branch gabapentin 2021- No [id number] 600mg Take 1 [facility] 600 mg -11-27 [id number] tablet by ity o f tablet 00:00: 00:00 mouth 3 [place] 00 :00 (three) Medical times Branch daily. pantoprazol 2021- No [id number] 40mg Take 20 mL [facility] e 2 mg/mL 06-13 by mouth ity o f oral 00:00: 00:00 daily. [place] suspension 00 :00 Medical Branch oxyCODONE 2020-04 Yes [id number] 10mg Take 1 [facility] CR 10 mg 12 1-03 tablet by ity of hr tablet 00:00: mouth [place] 00 every 12 Medical (twelve) Branch hours as needed for Pain. PRN Indication s: acute pain oxyCODONE 2020-04 Yes [id number] 10mg Take 1 Univer s CR 10 mg 12 1-03 tablet by ity of hr tablet 00:00: mouth [place] 00 every 12 Medical (twelve) Branch hours as needed for Pain. PRN Indication s: acute pain oxyCODONE 2020-04 Yes [id number] 10mg Take 1 Univer s CR 10 mg 12 1-03 tablet by ity of hr tablet 00:00: mouth [place] 00 every 12 Medical (twelve) Branch hours as needed for Pain. PRN Indication s: acute pain oxyCODONE 2020-04 Yes [id number] 10mg Take 1 Un[facility] s CR 10 mg 12 1-03 tablet by ity of hr tablet 00:00: mouth [place] 00 every 12 Medical (twelve) Branch hours [...] Pain. PRN Indication s: acute pain oxyCODONE 2020-043- No [id number] 10mg Take 1 Unive rs CR 10 mg 12 1-03 06-30 tablet by it y of hr tablet 00:00: 00:00 mouth [place] 00 :00 every 12 Medical (twelve) Branch hours as needed for Pain. PRN Indication s: acute pain oxyCODONE 2020-04- No [id number] 10mg Take 1 Unive rs CR 10 mg 12 04-0330 tablet by it y of hr tablet 00:00: 00:00 mouth [place] 00 :00 every 12 Medical (twelve) Branch hours as needed for Pain. PRN Indication s: acute pain lipase-prot 2020-04- No [id number] 1{capsu Take 1 [facility] ease-amylas 04-03 le} capsule by i ty of e (CREON) 00:00: 00:00 mouth 3 [place] 12,000-38,0 00 :00 (three) Medic al 00 -60,000 times Branch unit daily with capsule meals. ARIPiprazol 2020-04- No [id number] 5mg Take 1 [facility] e 5 mg 011-27 tablet by ity of tablet 00:00: 00:00 mouth [place] 00 :00 daily. Medical Branch dicyclomine 2020-04 Yes [id number] 20mg Take 1 [facility] 20 mg 0-09 tablet by ity of tablet 00:00: mouth as [place] 00 needed for Medical Abdominal Branch pain. dicyclomine 2020-04 Yes [id number] 20mg Take 1 [facility] 20 mg 0-09 tablet by ity of tablet 00:00: mouth as [place] 00 needed for Medical Abdominal Branch pain. dicyclomine 2020-04 Yes [id number] 20mg Take 1 [facility] 20 mg 0-09 tablet by ity of tablet 00:00: mouth as [place] 00 needed for Medical Abdominal Branch pain. dicyclomine 2020-04 Yes [id number] 20mg Take 1 [facility] 20 mg 0-09 tablet by ity of tablet 00:00: mouth as [place] 00 needed for Medical Abdominal Branch pain. dicyclomine 2020-04 Yes [id number] 20mg Take 1 [facility] 20 mg 0-09 tablet by ity of tablet 00:00: mouth as [place] 00 needed for Medical Abdominal Branch pain. dicyclomine 2020-04 Yes [id number] 20mg Take 1 [facility] 20 mg 0-09 tablet by ity of tablet 00:00: mouth as [place] 00 needed for Medical Abdominal Branch pain. dicyclomine 2020-04 Yes [id number] 20mg Take 1 [facility] 20 mg 0-09 tablet by ity of tablet 00:00: mouth as [place] 00 needed for Medical Abdominal Branch pain. dicyclomine 2020-04 Yes [id number] 20mg Take 1 [facility] 20 mg 0-09 tablet by ity of tablet 00:00: mouth as [place] 00 needed for Medical Abdominal Branch pain. dicyclomine 2020-04 Yes [id number] 20mg Take 1 [facility] 20 mg 0-09 tablet by ity of tablet 00:00: mouth as [place] 00 needed for Medical Abdominal Branch pain. dicyclomine 2020-04 Yes [id number] 20mg Take 1 [facility] 20 mg 0-09 tablet by ity of tablet 00:00: mouth as [place] 00 needed for Medical Abdominal Branch pain. dicyclomine 2020-04 Yes [id number] 20mg Take 1 [facility] 20 mg 0-09 tablet by ity of tablet 00:00: mouth as [place] 00 needed for Medical Abdominal Branch pain. dicyclomine 2020-04 Yes [id number] 20mg Take 1 [facility] 20 mg 0-09 tablet by ity of tablet 00:00: mouth as [place] 00 needed for Medical Abdominal Branch pain. dicyclomine 2020-04 Yes [id number] 20mg Take 1 [facility] 20 mg 0-09 tablet by ity of tablet 00:00: mouth as [place] 00 needed for Medical Abdominal Branch pain. dicyclomine 2020-04 Yes [id number] 20mg Take 1 [facility] 20 mg 0-09 tablet by ity of tablet 00:00: mouth as [place] 00 needed for Medical Abdominal Branch pain. dicyclomine 2020-04 Yes [id number] 20mg Take 1 [facility] 20 mg 0-09 tablet by ity of tablet 00:00: mouth as [place] 00 needed for Medical Abdominal Branch pain. dicyclomine 2020-04 Yes [id number] 20mg Take 1 [facility] 20 mg 0-09 tablet by ity of tablet 00:00: mouth as [place] 00 needed for Medical Abdominal Branch pain. dicyclomine 2020-04 Yes [id number] 20mg Take 1 [facility] 20 mg 0-09 tablet by ity of tablet 00:00: mouth as [place] 00 needed for Medical Abdominal Branch pain. dicyclomine 2020-04 Yes [id number] 20mg Take 1 [facility] 20 mg 0-09 tablet by ity of tablet 00:00: mouth as [place] 00 needed for Medical Abdominal Branch pain. dicyclomine 2020-04 Yes [id number] 20mg Take 1 [facility] 20 mg 0-09 tablet by ity of tablet 00:00: mouth as [place] 00 needed for Medical Abdominal Branch pain. dicyclomine 2020-04 Yes [id number] 20mg Take 1 [facility] 20 mg 0-09 tablet by ity of tablet 00:00: mouth as [place] 00 needed for Medical Abdominal Branch pain. dicyclomine 2020-04 Yes [id number] 20mg Take 1 [facility] 20 mg 0-09 tablet by ity of tablet 00:00: mouth as [place] 00 needed for Medical Abdominal Branch pain. dicyclomine 2020-04- No [id number] 20mg Take 1 [facility] 20 mg 0-09 06-30 tablet by ity of tablet 00:00: 00:00 mouth as [place] 00 :00 needed for Medical Abdominal Branch pain. dicyclomine 2020-04- No [id number] 20mg Take 1 [facility] 20 mg 0-09 06-30 tablet by ity of tablet 00:00: 00:00 mouth as [place] 00 :00 needed for Medical Abdominal Branch pain. escitalopra 2019-0 Yes 10mg QD Take [address] [facility] oxalate 5-17 by [facility] ([facility] 11:04: daily. [facility] 10 MG 17 Center tablet escitalopra 2019-0 Yes 10mg QD Take [address] [facility] oxalate 5-17 by [facility] ([facility]) 11:04: daily. Medica l 10 MG 17 Center tablet escitalopra 2019-0 Yes 10mg QD Take [address] [facility] oxalate 5-17 by [facility] ([facility]) 11:04: daily. Medica l 10 MG 17 Center tablet escitalopra 2019-0 Yes 10mg QD Take [address] [facility] oxalate 5-17 by [facility] ([facility]) 11:04: daily. Medica l 10 MG 17 Center tablet HYDROcodone 2019-0 Yes 1{tbl} Take [address] -acetaminop 3-23 tablet by Myra sotomayor ([facility]CO 00:00: mouth Medica l 7.5-325) 00 every 6 Center 7.5-325 mg (six) per tablet hours as needed for Pain. Max Daily Amount: 4 tablets HYDROcodone 2018-0 Yes 1{tbl} Take [address] -acetaminop 3-23 tablet by Myra es hen ([facility]CO 00:00: mouth Medica l 7.5-325) 00 every 6 Center 7.5-325 mg (six) per tablet hours as needed for Pain. Max Daily Amount: 4 tablets HYDROcodone 2018-0 Yes 1{tbl} Take [address] [...] 00:00: morning - [facility] Det[facility] Det) 00 [facility] Hydrocodone Hydrocodone Yes Chandrakant 1 tablet Common -Acetaminop -Acetaminop [facility] as needed [facility] Xanax Xanax Yes Chandrak[place] 1 tablet Common [facility] Zofran Zofran Yes [place] 1 tablet Commo n [facility] Immunizations Ordered Filled Date Status Comments Source Immunization Name Immunization Name Influenza Virus 2022-10-08 Completed [facility] Vaccine - Whole 00:00:00 [facility] Influenza Virus 2022-10-08 Completed Universit y of Vaccine - Whole 00:00:00 [facility] Influenza Virus 2022-10-08 Completed [facility] y of Vaccine - Whole 00:00:00 [facility] Influenza Virus 2022-10-08 Completed Universit y of Vaccine - Whole 00:00:00 [facility] Influenza Virus 2022-10-08 Completed Universit y of Vaccine - Whole 00:00:00 [facility] Influenza Virus 2022-10-08 Completed Universit y of Vaccine - Whole 00:00:00 [facility] Influenza Virus 2022-10-08 Completed Universit y of Vaccine - Whole 00:00:00 [facility] Influenza Virus 2022-10-08 Completed Universit y of Vaccine - Whole 00:00:00 [facility] Influenza Virus 2022-10-08 Completed Universit y of Vaccine - Whole 00:00:00 [facility] Influenza Virus 2022-10-08 Completed Universit y of Vaccine - Whole 00:00:00 [facility] Influenza Virus 2022-10-08 Completed Universit y of Vaccine - Whole 00:00:00 [facility] Influenza Virus 2022-10-08 Completed Universit y of Vaccine - Whole 00:00:00 [facility] Influenza Virus 2022-10-08 Completed Universit y of Vaccine - Whole 00:00:00 [facility] Influenza Virus 2022-10-08 Completed Universit y of Vaccine - Whole 00:00:00 [facility] Influenza Virus 2022-10-08 Completed Universit y of Vaccine - Whole 00:00:00 [facility] Influenza Virus 2022-10-08 Completed Universit y of Vaccine - Whole 00:00:00 [facility] Influenza Virus 2022-10-08 Completed Universit y of Vaccine - Whole 00:00:00 [facility] Influenza Virus 2022-10-08 Completed Universit y of Vaccine - Whole 00:00:00 [facility] Influenza Virus 2022-10-08 Completed Universit y of Vaccine - Whole 00:00:00 [facility] Influenza Virus 2022-10-08 Completed Universit y of Vaccine - Whole 00:00:00 [facility] Influenza Virus 2022-10-08 Completed Universit y of Vaccine - Whole 00:00:00 [facility] Influenza Virus 2022-10-08 Completed Universit y of Vaccine - Whole 00:00:00 [facility] Influenza Virus 2022-10-08 Completed Universit y of Vaccine - Whole 00:00:00 [facility] Influenza Virus 2022-10-08 Completed Universit y of Vaccine - Whole 00:00:00 [place] [facility] Branch Pneumococcal 20 2022-08-28 Completed Universit y of [...] Completed Unive rsity of ANTONI-SUCROSE 00:00:00 [facility] l VACCINE 12 YRS+, Branch BIVALENT 0.3ML, IM, (PFIZER ARROYO TOP) SARS-COV-2 COVID-19 2020-09-20 Completed Unive rsity of ADI/J&J VACCINE 00:00:00 [facility] SARS-COV-2 COVID-19 2020-09-20 Completed Unive rsity of ADI/J&J VACCINE 00:00:00 [facility] [facility] SARS-COV-2 COVID-19 2020-09-20 Completed Unive rsity of ADI/J&J VACCINE 00:00:00 [facility] SARS-COV-2 COVID-19 2020-09-20 Completed Unive rsity of ADI/J&J VACCINE 00:00:00 [facility] SARS-COV-2 COVID-19 2020-09-20 Completed Unive rsity of ADI/J&J VACCINE 00:00:00 [facility] SARS-COV-2 COVID-19 2020-09-20 Completed Unive rsity of ADI/J&J VACCINE 00:00:00 [facility] SARS-COV-2 COVID-19 2020-09-20 Completed Unive rsity of ADI/J&J VACCINE 00:00:00 [facility] SARS-COV-2 COVID-19 2020-09-20 Completed Unive rsity of ADI/J&J VACCINE 00:00:00 [facility] SARS-COV-2 COVID-19 2020-09-20 Completed Unive rsity of ADI/J&J VACCINE 00:00:00 [facility] SARS-COV-2 COVID-19 2020-09-20 Completed Unive rsity of ADI/J&J VACCINE 00:00:00 [facility] SARS-COV-2 COVID-19 2020-09-20 Completed Unive rsity of ADI/J&J VACCINE 00:00:00 [facility] SARS-COV-2 COVID-19 2020-09-20 Completed Unive rsity of ADI/J&J VACCINE 00:00:00 [facility] SARS-COV-2 COVID-19 2020-09-20 Completed Unive rsity of ADI/J&J VACCINE 00:00:00 [facility] SARS-COV-2 COVID-19 2020-09-20 Completed Unive rsity of ADI/J&J VACCINE 00:00:00 [facility] SARS-COV-2 COVID-19 2020-09-20 Completed Unive rsity of ADI/J&J VACCINE 00:00:00 [facility] SARS-COV-2 COVID-19 2020-09-20 Completed Unive rsity of ADI/J&J VACCINE 00:00:00 [facility] SARS-COV-2 COVID-19 2020-09-20 Completed Unive rsity of ADI/J&J VACCINE 00:00:00 [facility] SARS-COV-2 COVID-19 2020-09-20 Completed Unive rsity of ADI/J&J VACCINE 00:00:00 [facility] SARS-COV-2 COVID-19 2020-09-20 Completed Unive rsity of ADI/J&J VACCINE 00:00:00 [facility] SARS-COV-2 COVID-19 2020-09-20 Completed Unive rsity of ADI/J&J VACCINE 00:00:00 [facility] SARS-COV-2 COVID-19 2020-09-20 Completed Unive rsity of ADI/J&J VACCINE 00:00:00 [facility] SARS-COV-2 COVID-19 2020-09-20 Completed Unive rsity of ADI/J&J VACCINE 00:00:00 [facility] SARS-COV-2 COVID-19 2020-09-20 Completed Unive rsity of ADI/J&J VACCINE 00:00:00 [facility] SARS-COV-2 COVID-19 2020-09-20 Completed Unive rsity of ADI/J&J VACCINE 00:00:00 [facility] SARS-COV-2 COVID-19 2020-09-20 Completed Unive rsity of ADI/J&J VACCINE 00:00:00 [facility] SARS-COV-2 COVID-19 2020-09-20 Completed Unive rsity of ADI/J&J VACCINE 00:00:00 [facility] SARS-COV-2 COVID-19 2020-09-20 Completed Unive rsity of ADI/J&J VACCINE 00:00:00 [facility] SARS-COV-2 COVID-19 2020-09-20 Completed Unive rsity of ADI/J&J VACCINE 00:00:00 [facility] SARS-COV-2 COVID-19 2020-09-20 Completed Unive rsity of ADI/J&J VACCINE 00:00:00 [facility] SARS-COV-2 COVID-19 2020-09-20 Completed Unive rsity of ADI/J&J VACCINE 00:00:00 [facility] SARS-COV-2 COVID-19 2020-09-20 Completed Unive rsity of ADI/J&J VACCINE 00:00:00 [facility] SARS-COV-2 COVID-19 2020-09-20 Completed Unive rsity of ADI/J&J VACCINE 00:00:00 [facility] SARS-COV-2 COVID-19 2020-09-20 Completed Unive rsity of ADI/J&J VACCINE 00:00:00 [facility] SARS-COV-2 COVID-19 2020-09-20 Completed Unive rsity of ADI/J&J VACCINE 00:00:00 [facility] SARS-COV-2 COVID-19 2020-09-20 Completed Unive rsity of ADI/J&J VACCINE 00:00:00 [facility] SARS-COV-2 COVID-19 2020-09-20 Completed Unive rsity of ADI/J&J VACCINE 00:00:00 [facility] SARS-COV-2 COVID-19 2020-09-20 Completed Unive rsity of ADI/J&J VACCINE 00:00:00 [facility] SARS-COV-2 COVID-19 2020-09-20 Completed Unive rsity of ADI/J&J VACCINE 00:00:00 [facility] SARS-COV-2 COVID-19 2020-09-20 Completed Unive rsity of ADI/J&J VACCINE 00:00:00 [facility] SARS-COV-2 COVID-19 2020-09-20 Completed Unive rsity of ADI/J&J VACCINE 00:00:00 [facility] SARS-COV-2 COVID-19 2020-09-20 Completed [facility]ive rsity of ADI/J&J VACCINE 00:00:00 [facility] SARS-COV-2 COVID-19 2020-09-20 Completed [facility]ive rsity of ADI/J&J VACCINE 00:00:00 [facility] SARS-COV-2 COVID-19 2020-09-20 Completed [facility]ive rsity of ADI/J&J VACCINE 00:00:00 [facility] SARS-COV-2 COVID-19 2020-09-20 Completed [facility]ive rsity of ADI/J&J VACCINE 00:00:00 [facility] SARS-COV-2 COVID-19 2020-09-20 Completed [facility]ive rsity of ADI/J&J VACCINE 00:00:00 [facility] SARS-COV-2 COVID-19 2020-09-20 Completed [facility]ive rsity of ADI/J&J VACCINE 00:00:00 [facility] SARS-COV-2 COVID-19 2020-09-20 Completed [facility]ive rsity of ADI/J&J VACCINE 00:00:00 [facility] SARS-COV-2 COVID-19 2020-09-20 Completed [facility]ive rsity of ADI/J&J VACCINE 00:00:00 [facility] SARS-COV-2 COVID-19 2020-09-20 Completed [facility]ive rsity of ADI/J&J VACCINE 00:00:00 [facility] SARS-COV-2 COVID-19 2020-09-20 Completed [facility]ive rsity of ADI/J&J VACCINE 00:00:00 [facility] SARS-COV-2 COVID-19 2020-09-20 Completed [facility]ive rsity of ADI/J&J VACCINE 00:00:00 [facility] SARS-COV-2 COVID-19 2020-09-20 Completed [facility]ive rsity of ADI/J&J VACCINE 00:00:00 [facility] SARS-COV-2 COVID-19 2020-09-20 Completed Unive rsity of ADI/J&J VACCINE 00:00:00 [facility] SARS-COV-2 COVID-19 2020-09-20 Completed [facility]ive rsity of ADI/J&J VACCINE 00:00:00 [facility] SARS-COV-2 COVID-19 2020-09-20 Completed [facility]ive rsity of ADI/J&J VACCINE 00:00:00 [facility] Influenza Virus 2020-01-11 Completed Universit y of Vaccine Quad .5 mL 00:00:00 [facility] 6+ MO Branch Influenza Virus 2020-01-11 Completed [...] of Vaccine Quad .5 mL 00:00:00 [facility] 6+ MO [facility] (FLUZONE/FLULAVAL/F LUARIX) Influenza Virus 2020-01-11 Completed Universit y of Vaccine Quad .5 mL 00:00:00 [facility] 6+ MO [facility] (FLUZONE/FLULAVAL/F LUARIX) TDAP (ADACEL) 2019-04-28 Completed University of VACCINE 00:00:00 [facility] TDAP (ADACEL) 2019-04-28 Completed University of VACCINE 00:00:00 [facility] TDAP (ADACEL) 2019-04-28 Completed University of VACCINE 00:00:00 [facility] TDAP (ADACEL) 2019-04-28 Completed University of VACCINE 00:00:00 [facility] TDAP (ADACEL) 2019-04-28 Completed University of VACCINE 00:00:00 [facility] TDAP (ADACEL) 2019-04-28 Completed University of VACCINE 00:00:00 [facility] TDAP (ADACEL) 2019-04-28 Completed University of VACCINE 00:00:00 [facility] TDAP (ADACEL) 2019-04-28 Completed University of VACCINE 00:00:00 [facility] TDAP (ADACEL) 2019-04-28 Completed University of VACCINE 00:00:00 [facility] TDAP (ADACEL) 2019-04-28 Completed University of VACCINE 00:00:00 [facility] TDAP (ADACEL) 2019-04-28 Completed University of VACCINE 00:00:00 [facility] TDAP (ADACEL) 2019-04-28 Completed University of VACCINE 00:00:00 [facility] TDAP (ADACEL) 2019-04-28 Completed University [...] 2019-04-28 Completed University of VACCINE 00:00:00 [facility] TDAP (ADACEL) 2019-04-28 Completed University of VACCINE 00:00:00 [facility] TDAP (ADACEL) 2019-04-28 Completed University of VACCINE 00:00:00 [facility] TDAP (ADACEL) 2019-04-28 Completed University of VACCINE 00:00:00 [facility] TDAP (ADACEL) 2019-04-28 Completed University of VACCINE 00:00:00 [facility] TDAP (ADACEL) 2019-04-28 Completed University of VACCINE 00:00:00 [facility] TDAP (ADACEL) 2019-04-28 Completed University of VACCINE 00:00:00 [facility] TDAP (ADACEL) 2019-04-28 Completed University [...] 2019-04-28 Completed University of VACCINE 00:00:00 [facility] TDAP (ADACEL) 2019-04-28 Completed University of VACCINE 00:00:00 [facility] TDAP (ADACEL) 2019-04-28 Completed University of VACCINE 00:00:00 [facility] TDAP (ADACEL) 2019-04-28 Completed University of VACCINE 00:00:00 [facility] TDAP (ADACEL) 2019-04-28 Completed University of VACCINE 00:00:00 [facility] TDAP (ADACEL) 2019-04-28 Completed University of VACCINE 00:00:00 [facility] TDAP (ADACEL) 2019-04-28 Completed University of VACCINE 00:00:00 [facility] TDAP (ADACEL) 2019-04-28 Completed University of VACCINE 00:00:00 [facility] TDAP (ADACEL) 2019-04-28 Completed University of VACCINE 00:00:00 [facility] TDAP (ADACEL) 2019-04-28 Completed University of VACCINE 00:00:00 [facility] TDAP (ADACEL) 2019-04-28 Completed University of VACCINE 00:00:00 [facility] TDAP (ADACEL) 2019-04-28 Completed University of VACCINE 00:00:00 [facility] TDAP (ADACEL) 2019-04-28 Completed University of VACCINE 00:00:00 [facility] TDAP (ADACEL) 2019-04-28 Completed University of VACCINE 00:00:00 [facility] TDAP (ADACEL) 2019-04-28 Completed University of VACCINE 00:00:00 [facility] TDAP (ADACEL) 2019-04-28 Completed University of VACCINE 00:00:00 [facility] TDAP (ADACEL) 2019-04-28 Completed University of VACCINE 00:00:00 [facility] TDAP (ADACEL) 2019-04-28 Completed University of VACCINE 00:00:00 [facility] TDAP (ADACEL) 2019-04-28 Completed University of VACCINE 00:00:00 [facility] TDAP (ADACEL) Unknown Completed University of VACCINE [facility] Influenza Virus Unknown Completed Universit y of Vaccine Quad .5 mL [facility] 6+ MO [facility] (FLUZONE/FLULAVAL/F LUARIX) SARS-COV-2 COVID-19 Unknown Completed Unive rsity of ADI/J&J VACCINE [facility] Pneumococcal 20 Unknown Completed Universit y of Conjugate, PCV20 [place] [facility] (Prevnar 20) Branch SARS-COV-2 COVID-19 Unknown Completed Unive rsity of ANTONI-SUCROSE [facility] [place] [facility] VACCINE 12 YRS+, Branch BIVALENT 0.3ML, IM, (PFIZER ARROYO TOP) Influenza Virus Unknown Completed Universit y of Vaccine - Whole [facility] TDAP (ADACEL) Unknown Completed [facility] Influenza Virus Unknown Completed Universit y of Vaccine Quad .5 mL [facility] IM 6+ MO Branch (FLUZONE/FLULAVAL/F LUARIX) SARS-COV-2 COVID-19 Unknown Completed Unive rsity of ADI/J&J VACCINE [facility] Pneumococcal 20 Unknown Completed Universit y of Conjugate, PCV20 [facility] [place] [facility] (Prevnar 20) Branch SARS-COV-2 COVID-19 Unknown Completed Unive rsity of ANTONI-SUCROSE [facility] VACCINE 12 YRS+, Branch BIVALENT 0.3ML, IM, (PFIZER ARROYO TOP) Influenza Virus Unknown Completed Universit y of Vaccine - Whole [facility] TDAP (ADACEL) Unknown Completed [facility] Influenza Virus Unknown Completed Universit y of Vaccine Quad .5 mL [facility] IM 6+ MO Branch (FLUZONE/FLULAVAL/F LUARIX) SARS-COV-2 COVID-19 Unknown Completed Unive rsity of ADI/J&J VACCINE [facility] Pneumococcal 20 Unknown Completed Universit y of Conjugate, PCV20 [facility] [place] [facility] (Prevnar 20) Branch SARS-COV-2 COVID-19 Unknown Completed Unive rsity of ANTONI-SUCROSE [facility] [place] [facility] VACCINE 12 YRS+, Branch BIVALENT 0.3ML, IM, (PFIZER ARROYO TOP) Influenza Virus Unknown Completed Universit y of Vaccine - Whole [facility] Vital Signs Vital Name Observation Time Observation Value Comments Source Systolic blood 2022-12-18 17:36:00 111 mm[Hg] Univer sity of pressure [facility] Diastolic blood 2022-12-18 17:36:00 65 mm[Hg] Unive rsity of pressure [facility] Heart rate 2022-12-18 17:36:00 67 /min Universi ty of [facility] Body height 2022-12-18 17:36:00 180.3 cm Universi ty of [facility] Body weight 2022-12-18 17:36:00 82.192 kg Universi ty of [facility] BMI 2022-12-18 17:36:00 25.27 kg/m2 [facility]i ty of [facility] Oxygen saturation in 2022-12-18 17:36:00 98 /min University of Arterial blood by [facility] Pulse oximetry Branch Respiratory rate 2022-11-30 12:40:00 18 /min Univ ersity of [facility] Oxygen saturation in 2022-11-30 12:40:00 96 /min University of Arterial blood by [facility] Pulse oximetry Branch Systolic blood 2022-11-30 12:39:00 114 mm[Hg] Univer sity of pressure [facility] Diastolic blood 2022-11-30 12:39:00 65 mm[Hg] Unive rsity of pressure [facility] Heart rate 2022-11-30 12:39:00 52 /min Universi ty of [facility] Body temperature 2022-11-30 12:39:00 36.22 Leda Univ ersity of [facility] Body weight 2022-11-30 07:51:00 81.965 kg Universi ty of [facility] BMI 2022-11-30 07:51:00 25.20 kg/m2 [facility] of [facility] Body height 2022-11-28 23:32:00 180.3 cm Universi ty of [facility] Systolic blood 2022-11-22 17:54:00 136 mm[Hg] Univer sity of pressure [facility] Diastolic blood 2022-11-22 17:54:00 85 mm[Hg] Unive rsity of pressure [facility] Heart rate 2022-11-22 17:54:00 90 /min Universi ty of [facility] Body temperature 2022-11-22 17:54:00 37.39 Leda Univ ersity of [facility] Respiratory rate 2022-11-22 17:54:00 18 /min Univ ersity of [facility] Body height 2022-11-22 17:54:00 180.3 cm Universi ty of [facility] Body weight 2022-11-22 17:54:00 79.379 kg Universi ty of [facility] BMI 2022-11-22 17:54:00 24.41 kg/m2 [facility]i ty of [facility] Oxygen saturation in 2022-11-22 17:54:00 98 /min University of Arterial blood by [facility] julieta Pulse oximetry Branch Systolic blood 2022-11-15 15:27:00 131 mm[Hg] Univer sity of pressure [facility] Diastolic blood 2022-11-15 15:27:00 79 mm[Hg] Unive rsity of pressure [facility] Heart rate 2022-11-15 15:27:00 76 /min Universi ty of [facility] Body temperature 2022-11-15 15:27:00 36.28 Leda Univ ersity of [facility] Body height 2022-11-15 15:27:00 152.4 cm [facility]i ty of [facility] Body weight 2022-11-15 15:27:00 82.192 kg Universi ty of [facility] BMI 2022-11-15 15:27:00 35.39 kg/m2 [facility] of [facility] Oxygen saturation in 2022-11-15 15:27:00 98 /min University of Arterial blood by [facility] Pulse oximetry Branch Systolic blood 2022-11-14 17:50:00 126 mm[Hg] Univer sity of pressure [facility] Diastolic blood 2022-11-14 17:50:00 79 mm[Hg] Unive rsity of pressure [facility] Heart rate 2022-11-14 17:50:00 67 /min [facility]i ty of [facility] Body temperature 2022-11-14 17:50:00 36.89 Leda Univ ersity of [facility] Respiratory rate 2022-11-14 17:50:00 20 /min Univ ersity of [facility] Oxygen saturation in 2022-11-14 17:50:00 96 /min [facility] Arterial blood by [facility] [place] [facility] Pulse oximetry Branch Body weight 2022-11-14 09:00:00 81.602 kg [facility]i [facility] of [facility] BMI 2022-11-14 09:00:00 35.13 kg/m2 [facility] of [facility] Body height 2022-11-13 08:01:00 152.4 cm [facility]i [facility] of [facility] Systolic blood 2022-11-06 17:40:00 144 mm[Hg] Univer sity of pressure [facility] Diastolic blood 2022-11-06 17:40:00 86 mm[Hg] Unive rsity of pressure [facility] Heart rate 2022-11-06 17:40:00 67 /min [facility]i [facility] of [facility] Body temperature 2022-11-06 17:40:00 36.78 Leda Univ ersity of [facility] Respiratory rate 2022-11-06 17:40:00 14 /min Univ ersity of [facility] Oxygen saturation in 2022-11-06 17:40:00 98 /min University of Arterial blood by [employer] Pulse oximetry Branch Body weight 2022-11-05 11:20:00 81.466 kg [facility]i [facility] of [facility] BMI 2022-11-05 11:20:00 35.08 kg/m2 [facility] of [facility] Body height 2022-11-05 00:29:00 152.4 cm [facility]i [facility] of [facility] Systolic blood 2022-10-11 18:27:00 124 mm[Hg] Univer sity of pressure [facility] Diastolic blood 2022-10-11 18:27:00 77 mm[Hg] Unive rsity of pressure [facility] Heart rate 2022-10-11 18:27:00 98 /min [facility]i [facility] of [facility] Body height 2022-10-11 18:27:00 180.3 cm [facility] of [facility] Body weight 2022-10-11 18:27:00 80.423 kg [facility] of [facility] BMI 2022-10-11 18:27:00 24.73 kg/m2 [facility] of [facility] Oxygen saturation in 2022-10-11 18:27:00 94 /min University of Arterial blood by [employer] Pulse oximetry Branch Systolic blood 2022-09-28 19:25:00 115 mm[Hg] Univer sity of pressure [facility] Diastolic blood 2022-09-28 19:25:00 75 mm[Hg] Unive rsity of pressure [facility] Heart rate 2022-09-28 19:25:00 84 /min [facility]i ty of [facility] Body height 2022-09-28 19:25:00 180.3 cm [facility] Body weight 2022-09-28 19:25:00 83.144 kg [facility]i [facility] of [facility] BMI 2022-09-28 19:25:00 25.57 kg/m2 [facility] of [facility] Oxygen saturation in 2022-09-28 19:25:00 97 /min University of Arterial blood by [facility] julieta Pulse oximetry Branch Systolic blood 2022-08-28 20:41:00 129 mm[Hg] Univer sity of pressure [facility] Diastolic blood 2022-08-28 20:41:00 75 mm[Hg] Unive rsity of pressure [facility] Heart rate 2022-08-28 20:41:00 84 /min [facility]i ty of [facility] Body temperature 2022-08-28 20:41:00 37.11 Leda Univ ersity of [facility] Body height 2022-08-28 20:41:00 180.3 cm [facility] Body weight 2022-08-28 20:41:00 84.959 kg [facility] BMI 2022-08-28 20:41:00 26.12 kg/m2 [facility] Oxygen saturation in 2022-08-28 20:41:00 97 /min University of Arterial blood by [facility] Pulse oximetry Branch Systolic blood 2022-02-02 16:52:00 129 mm[Hg] Univer sity of pressure [facility] Diastolic blood 2022-02-02 16:52:00 80 mm[Hg] Unive rsity of pressure [facility] Heart rate 2022-02-02 16:51:00 78 /min [facility]i ty of [facility] Body weight 2022-02-02 16:51:00 83.915 kg [facility]i ty of [facility] BMI 2022-02-02 16:51:00 25.80 kg/m2 [facility] Oxygen saturation in 2022-02-02 16:51:00 98 /min University of Arterial blood by [facility] julieta Pulse oximetry Branch Systolic blood 2021-11-27 16:08:00 128 mm[Hg] Univer sity of pressure [facility] Diastolic blood 2021-11-27 16:08:00 80 mm[Hg] [facility] Heart rate 2021-11-27 16:08:00 103 /min [facility] Body temperature 2021-11-27 16:08:00 37.17 Leda Univ [facility] Body height 2021-11-27 16:08:00 180.3 cm [facility] Body weight 2021-11-27 16:08:00 78.019 kg [facility] BMI 2021-11-27 16:08:00 23.99 kg/m2 [facility] Oxygen saturation in 2021-11-27 16:08:00 100 /min [facility] Arterial blood by [facility] Pulse oximetry [place] Procedures Procedure Date / Time Performing Clinician Source Performed MAGNESIUM 2022-11-29 12:13:00 Sara Vilchis [facility] COMP. METABOLIC PANEL 2022-11-29 12:13:00 Sara Vilchis [facility] ([id number]) [facility] Branch LIPASE 2022-11-29 09:09:00 Sara Vilchis [facility] CBC WITH DIFF 2022-11-29 09:09:00 Sara Vilchis [facility] PROTHROMBIN TIME / INR 2022-11-29 09:09:00 Sara Vilchis [facility] ACTIVATED PARTIAL 2022-11-29 09:09:00 [facility] 2022-11-28 21:20:00 Tez Ramírez [facility] COMP. METABOLIC PANEL 2022-11-28 21:20:00 Tez Ramírez Un [facility] ([id number]) [facility] CBC WITH DIFF 2022-11-28 21:20:00 Tez Ramírez [facility] CONSENT/REFUSAL FOR 2022-11-28 20:55:04 Doctor Unassigned, No Un [facility] DIAGNOSIS AND TREATMENT Name Medical Branch LIPASE 2022-11-22 19:26:00 Titus Marin o f [facility] COMP. METABOLIC PANEL 2022-11-22 19:26:00 Marin, [facility] ([id number]) Medical Branch CBC WITH DIFF 2022-11-22 19:26:00 Singer [facility] URINALYSIS 2022-11-22 19:20:00 Singer [facility] ASSIGNMENT OF BENEFITS 2022-11-22 18:54:27 Doctor Unassigned, No [facility] CONSENT/REFUSAL FOR 2022-11-22 17:42:28 Doctor Unassigned, No Un [facility] DIAGNOSIS AND TREATMENT [facility] BASIC METABOLIC PANEL 2022-11-14 10:21:00 Hailey Cardenas [facility] (NA, K, CL, CO2, GLUCOSE, Medica l Branch BUN, CREATININE, CA) US ABDOMEN COMPLETE 2022-11-13 09:37:37 Radu Treadwell [facility] CT ABDOMEN PELVIS WO 2022-11-13 03:29:30 Perla Guillaume [facility] CONTRAST Medical Branch LIPASE 2022-11-13 01:34:00 Markell [facility] HEPATIC FUNCTION PANEL 2022-11-13 01:34:00 Markell [facility] ([id number]) (ALB,T.PRO,BILI Medical Branch T,BU/BC,ALT,AST,ALK PHOS) BASIC METABOLIC PANEL 2022-11-13 01:34:00 Markell, [facility] (NA, K, CL, CO2, GLUCOSE, Medica l Branch BUN, CREATININE, CA) CBC WITH DIFF 2022-11-13 01:34:00 Markell [facility] ASSIGNMENT OF BENEFITS 2022-11-13 01:18:15 Doctor Unassigned, No [facility] NOTICE OF PRIVACY 2022-11-12 23:36:23 Doctor Unassigned, No [facility] PRACTICES [facility] CONSENT/REFUSAL FOR 2022-11-12 23:36:07 [facility] Medical Branch LIPASE 2022-11-06 10:42:00 Lupis Soria [facility] Medical Branch MAGNESIUM 2022-11-06 10:42:00 [place], [facility] BASIC METABOLIC PANEL 2022-11-06 10:42:00 [facility] (NA, K, CL, CO2, GLUCOSE, Medica l Branch BUN, CREATININE, CA) CBC WITH DIFF 2022-11-06 10:42:00 [id number])(TOTAL 2022-11-05 11:25:00 Deric Santos Un [facility] CHOLESTEROL, [facility] TRIGLYCERIDES, HDL) CT ABDOMEN PELVIS WO 2022-11-04 18:25:16 Josh Hodge [facility] CONTRAST [facility] HB ECG ROUTINE & RHYTHM 2022-11-04 17:55:58 Josh Hodge [facility] STRIP [facility] URINALYSIS 2022-11-04 17:52:00 Josh Hodge [facility] LIPASE 2022-11-04 17:50:00 Naveen [facility] TROPONIN I 2022-11-04 17:50:00 Josh [facility] COMP. METABOLIC PANEL 2022-11-04 17:50:00 Josh Hodge [facility] ([id number]) Medical Branch ETHANOL 2022-11-04 17:50:00 Josh Hodge [facility] CBC WITH DIFF 2022-11-04 17:50:00 Josh Hodge [facility] CONSENT/REFUSAL FOR 2022-11-04 17:24:22 Doctor [facility]igned, [facility] Name [facility] Branch CONSENT/REFUSAL FOR 2022-09-28 19:06:21 Doctor Unassigned, No Un [facility] Name [facility] CBC WITH DIFF 2022-08-28 21:49:00 Hua Justice [facility] SARS-COV-2 COVID-19 2022-08-28 21:43:24 Hua Justice [facility] ANTONI-SUCROSE VACCINE 12 [facility] Branch YRS+, BIVALENT 0.3ML, IM, (PFIZER ARROYO TOP) PNEUMOCOCCAL 20 CONJUGATE 2022-08-28 21:43:00 Hua Justice Un [facility] (PREVNAR 20) VACCINE [facility] INSURANCE CORRESPONDENCE 2022-08-21 05:01:00 Doctor Unassigned, No [facility] AUTHORIZATION FOR RELEASE 2021-11-27 05:01:00 Doctor Unassigned, No [facility] Branch Encounters Start End Encounter Admission Attending Care Care Encounter Source Date/Time Date/Time Type Type Clinicians Facility Department ID 2021-01-31 Emergency [facility] [id number] Univers 04:31:31 ity of [facility] 2021-01-30 Emergency [facility] [id number] Univers 12:18:18 ity of [facility] 2021-01-30 Emergency [facility] [id number] Univers 09:17:48 ity of [facility] 2021-01-30 Emergency [facility] [id number] Univers 08:18:41 ity of [facility] 2021-01-30 Emergency [facility] [id number] Univers 04:52:11 ity of [facility] 2021-01-28 Emergency [facility] [id number] Univers 18:24:20 ity of [facility] 2021-01-28 Emergency [facility] [id number] Univers 04:33:22 ity of [facility] 2021-01-28 Outpatient MILY [facility] [id number] Univers 04:31:08 BRODIE ity of [facility] 2021-01-28 Emergency [facility] [id number] Univers 01:58:43 ity of [facility] 2021-01-27 Emergency [facility] [id number] Univers 23:31:06 ity of [facility] 2021-01-27 Emergency [facility] [id number] Univers 21:26:13 ity of [facility] 2023-01-29 2023-01-29 Outpatient ROSS DILL [facility] [id number] Univers 10:20:00 10:20:00 ROSS GUNTER [facility] 2023-01-11 2023-01-11 Outpatient ROSS DILL [facility] [id number] Univers 14:00:00 14:00:00 ROSS GUNTER [facility] 2022-12-18 2022-12-18 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, Ang - Db [facility] 1.2.840.1 14 [id number] Univers 14:00:00 14:15:00 Visit Hua Justice 350.1.13.10 ity of [place] 4.2.7.2.686 Real as SYED?BLEA [id number] [facility] 353 [facility] OFFICE [facility] 2022-12-18 2022-12-18 Outpatient R VINH [facility] [id number] Univers 13:00:00 13:10:24 HUA garret [facility] 2022-12-18 2022-12-18 Office Vinh [facility] 1.2.840.114 [id number] Univers 13:00:00 13:10:24 Visit Hua SMIS 350.1.13.10 it y of [place] 4.2.7.2.686 Real as SYED?BLEA [id number] [address] OFFICE [facility] 2022-12-18 2022-12-18 Patient Doctor CARY 1.2.840.114 [id number] Univers 00:00:00 00:00:00 Secure Msg Unassigned, SEAN 350.1.13.10 [facility] 4.2.7.2.686 Real as [phone] [address] 2022-12-17 2022-12-17 Outpatient R ROSS GUNTER [facility] [id number] Univers 16:20:00 16:20:00 ROSS GUNTER gautam [facility] 2022-12-17 2022-12-17 [facility] 1.2.454.546 [id number] Univers 00:00:00 00:00:00 [facility] 350.1.13.10 ity of [place] 4.2.7.2.686 Real as SYED?BLEA [id number] [address] OFFICE [facility] 2022-12-14 2022-12-14 Telephone Vinh [facility] 1.2.473.120 [id number] Univers 00:00:00 00:00:00 Hua HEALTH 350.1.13.10 it y of [place] 4.2.7.2.686 Real as SYED?BLEA [id number] [address] OFFICE [facility] 2022-12-14 2022-12-14 Patient Doctor [facility] 1.2.840.114 [id number] Univers 00:00:00 00:00:00 Secure Msg Unassigned, HEALTH 350.1.13.10 it[place] 4.2.7.2.686 Real as SYED?BLEA [id number] [address] OFFICE [facility] 2022-12-12 2022-12-12 Outpatient R VINH [facility] [id number] Univers 13:30:00 13:30:00 HUA combs [facility] 2022-12-06 2022-12-06 Telephone [facility] 1.2.742.320 [id number] Univers 00:00:00 00:00:00 Hua [facility] 350.1.13.10 it y of [facility] 4.2.7.2.686 Real as SYED?BLEA [id number] [address] OFFICE [facility] 2022-12-04 2022-12-04 Transition MANJINDER Francisco 1.2.840.114 [id number] Univers 00:00:00 00:00:00 of Care Anderson BADILL[place] 350.1.13.10 [place] [phone] [address] 2022-12-04 2022-12-04 Telephone Vinh [facility] 1.2.694.174 [id number] Univers 00:00:00 00:00:00 Hua HEALTH 350.1.13.10 it y of [place] 4.2.7.2.686 Real as SYED?BLEA [id number] [address] OFFICE [facility] 2022-11-28 2022-11-30 Outpatient X TOM [facility] [id number] Univers 16:10:00 11:07:00 DERIC combs [facility] 2022-11-28 2022-11-30 Emergency Tez Ramírez [facility] 1.2. 840.114 [id number] Univers 16:10:00 11:07:00 Deric Santos 350.1.13.10 [place] [id number] [facility] [address] 2022-11-22 2022-11-22 Emergency X [facility] ERT [id number] Univers 12:58:00 15:41:00 TITUS angiegautam [facility] 2022-11-22 2022-11-22 Emergency [facility] 1.2.688.000 [id number] Univers 12:58:00 15:41:00 Titus ADELA 350.1.13.10 i ty of [facility] [place].2.[place] [id number] [facility] [address] 2022-11-16 2022-11-16 Telephone [facility] 1.2.848.917 [id number] Univers 00:00:00 00:00:00 [facility] 350.1.13.10 ity of [place] 4.2.7.2.686 Real as SYED?BLEA [id number] [address] MEDICAL OFFICE [facility] 2022-11-15 2022-11-15 Outpatient R ROSS GUNTER [facility] [id number] Univers 10:20:00 11:30:24 ROSS GUNTER [facility] 2022-11-15 2022-11-15 Office [facility] 1.2.840.114 [id number] Univers 10:20:00 11:30:24 Visit [facility] 350.1.13.10 ity of [place] 4.2.7.2.686 Real as SYED?BLEA [id number] [address] MEDICAL OFFICE BUILDING 2022-11-15 2022-11-15 Transition MANJINDER Olivier 1.2.840.114 [id number] Univers 00:00:00 00:00:00 of Care Jenniffer BADILL[place] 350.1.13.10 [place] [id number] [facility] [address] 2022-11-122022-11-14 Outpatient U HERI [facility] DEWEY [id number] Univers 18:51:00 16:49:00 RADU combs [facility] 2022-11-12 2022-11-14 Emergency Perla Guillaume [facility] 1.2.840.1 14 [id number] Univers 18:51:00 16:49:00 Radu Treadwell 350.1.13.10 ity of [place] [id number] [facility] 114 Branch (CLC) 2022-11-12 2022-11-12 Orders Doctor CARY 1.2.840.114 [id number] Univers 00:00:00 00:00:00 Only Unassigned, SEAN 350.1.13.10 ity of [place] [facility] 4.2.7.2.686 Real as [id number] [facility] [address] 2022-11-09 2022-11-09 Telephone Vinh [facility] 1.2.841.678 [id number] Univers 00:00:00 00:00:00 Hua HEALTH 350.1.13.10 it y of [place] 4.2.7.2.686 Real as SYED?BLEA [id number] [address] MEDICAL OFFICE BUILDING 2022-11-07 2022-11-07 Transition MANJINDER Francisco 1.2.840.114 [id number] Univers 00:00:00 00:00:00 of Care Anderson LOPEZY 350.1.13.10 [place] [id number] [facility] [address] 2022-11-07 2022-11-07 Patient Doctor CARY 1.2.840.114 [id number] Univers 00:00:00 00:00:00 Secure Msg Unassigned, SEAN 350.1.13.10 ity of [place] [facility] 4.2.7.2.686 Real as [id number] [facility] [address] 2022-11-04 2022-11-06 Outpatient X TOM [facility] [id number] Univers 12:36:00 13:55:00 DERIC combs [facility] 2022-11-04 2022-11-06 Emergency Josh Hodge [facility] 1.2.840.1 14 [id number] Univers 12:36:00 13:55:00 Dreic Santos 350.1.13.10 [place] of [place] [phone] [address] 2022-10-31 2022-10-31 Refsophie [facility]AL[facility] 1.2.840.114 [id number] Univers 00:00:00 00:00:00 [facility] 350.1.13.10 it y of [facility] 4.2.7.2.686 Real as SYED?BLEA [phone] [address] MEDICAL OFFICE [facility] 2022-10-24 2022-10-24 Refsophie [facility] 1.2.840.114 [id number] Univers 00:00:00 00:00:00 [facility] 350.1.13.10 it y of [place] 4.2.7.2.686 Real as SYED?BLEA [id number] [address] MEDICAL OFFICE [facility] 2022-10-22 2022-10-22 Telephone [facility] 1.2.215.674 [id number] [facility] 00:00:00 00:00:00 [facility] 350.1.13.10 ity of [place] 4.2.7.2.686 Real as SYED?BLEA [id number] [address] MEDICAL OFFICE [facility] 2022-10-11 2022-10-11 Outpatient R ROSS GUNTER [facility] [id number] Univers 13:40:00 13:55:29 [facility] 2022-10-11 2022-10-11 Office [facility] 1.2.840.114 [id number] Univers 13:40:00 13:55:29 Visit [facility] 350.1.13.10 ity of [place] 4.2.7.2.686 Real as SYED?BLEA [id number] [address] MEDICAL OFFICE [facility] 2022-10-08 2022-10-08 Outpatient R [facility] [id number] Univers 13:00:00 13:00:00 ity of [facility] 2022-10-04 2022-10-04 Refill [facility] 1.2.840.114 [id number] Univers 00:00:00 00:00:00 Hua HEALTH 350.1.13.10 it y of [place] 4.2.7.2.686 Real as SYED?BLEA [id number] [facility] OLENA[address] MEDICAL OFFICE [facility] 2022-10-01 2022-10-01 Refill [facility] 1.2.840.114 [id number] Univers 00:00:00 00:00:00 Hua HEALTH 350.1.13.10 it y of [place] 4.2.7.2.686 Real as SYED?BLEA [id number] [address] OFFICE [facility] 2022-09-28 2022-09-28 Office [facility] 1.2.840.114 [id number] Univers 14:20:00 14:40:00 Visit [facility] 350.1.13.10 ity of [place] 4.2.7.2.686 Real as SYED?BLEA [id number] [address] OFFICE [facility] 2022-09-28 2022-09-28 Outpatient R ROSS GUNTER [facility] [id number] Univers 14:20:00 14:20:00 ROSS GUNTER [facility] 2022-09-28 2022-09-28 Orders Doctor CARY 1.2.840.114 [id number] Univers 00:00:00 00:00:00 Only Unassigned, SEAN 350.1.13.10 ity of [place] [facility] 4.2.7.2.686 Real as [id number] [address] 2022-09-05 2022-09-05 Telephone [facility] 1.2.696.367 [id number] Univers 00:00:00 00:00:00 [facility] 350.1.13.10 ity of [place] 4.2.7.2.686 Real as SYED?BLEA [id number] [place] [address] MEDICAL OFFICE [facility] 2022-08-29 2022-08-29 Telephone Vinh [facility] 1.2.352.996 [id number] Univers 00:00:00 00:00:00 Hua HEALTH 350.1.13.10 it y of [place] 4.2.7.2.686 Real as SYED?BLEA [phone] [facility] [address] MEDICAL OFFICE [facility] 2022-08-29 2022-08-29 Pre Visit CARY Carroll 1.2.532.582 [id number] Univers 00:00:00 00:00:00 Outreach Jh GASPAR 350.1.13.10 ity of HOSPITAL 4.2.7.2.686 Real as [id number] [facility] [address] 2022-08-28 2022-08-28 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, Ang - Db [facility] 1.2.840.1 14 [id number] Univers 16:45:00 17:00:00 Visit Unknown, [facility] HEALTH 350.1.13.10 ity of [place] 4.2.7.2.686 Real as SYED?BLEA [id number] [facility] 353 [facility] OFFICE [facility] 2022-08-28 2022-08-28 Outpatient R VINH [facility] [id number] Univers 15:30:00 16:41:27 HUA angiegautam of [facility] 2022-08-28 2022-08-28 Office Vinh [facility] 1.2.840.114 [id number] Univers 15:30:00 16:41:27 Visit Hua [facility] 350.1.13.10 it y of [place] 4.2.7.2.686 Real as SYED?BLEA [id number] [address] MEDICAL OFFICE [facility] 2022-08-21 2022-08-21 Orders Doctor TOWNSEND 1.2.840.114 [id number] Univers 00:00:00 00:00:00 Only Unassigned, SEAN 350.1.13.10 ity [place] [facility]OSPITAL 4.2.7.2.686 Real as [id number] [facility] [address] 2022-07-30 2022-07-30 Refill [facility] 1.2.840.114 [id number] Univers 00:00:00 00:00:00 Hua HEALTH 350.1.13.10 it y of [place] 4.2.7.2.686 Real as SYED?BLEA [phone] Ri nidhi NANCE [address] [place] [address] OFFICE [facility] 2022-06-13 2022-06-13 Telephone [facility] 12.840.114 [id number] Univers 00:00:00 00:00:00 Lucy HEALTH 350.1.13.10 it y of [place] 4.2.7.2.686 Real as SYED?BLEA [id number] Ri isra[address] 2022-05-29 2022-05-29 Outpatient R VINH [facility] [id number] Univers 11:00:00 11:00:00 HUA gautam [facility] 2022-05-29 2022-05-29 [facility] [id number] Univers 11:00:00 11:00:00 HUA [facility] 2022-05-15 2022-05-15 Outpatient R UNKNOWN, [facility] [id number] Univers 14:00:00 14:00:00 ATTENDING [facility] 2022-02-06 2022-02-06 Outpatient R EVON [facility] [id number] Univers 15:14:07 23:59:00 CHETNA gautam [facility] 2022-02-05 2022-02-05 Telephone [facility] 1..318.202 [id number] Univers 00:00:00 00:00:00 Hua HEALTH 350.1.13.10 it y of [place] 4.2.7.2.686 Real as SYED?BLEA [id number] Ri isranh OLENA[address] 2022-02-03 2022-02-03 Refill [facility] 1.2.840.114 [id number] Univers 00:00:00 00:00:00 Lucy HEALTH 350.1.13.10 it y of [place] 4.2.7.2.686 Real as SYED?BLEA [id number] [facility] [address] MEDICAL OFFICE [facility] 2022-02-03 2022-02-03 Refill [facility] 1.2.840.114 [id number] Univers 00:00:00 00:00:00 Hua HEALTH 350.1.13.10 it y of [place] 4.2.7.2.686 Real as SYED?BLEA [id number] [address] OFFICE [facility] 2022-02-02 2022-02-02 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, Ang - [facility] 1.2.840.1 14 [id number] Univers 12:00:00 12:15:00 Visit DanoLucy parsons quan [facility] 350.1.13 .10 ity of [place] 4.2.7.2.686 Real as SYED?BLEA [id number] [facility] 353 [facility] OFFICE [facility] 2022-02-02 2022-02-02 Outpatient R EVON [facility] [id number] Univers 11:30:00 12:07:03 CHETNA ity [facility] 2022-02-02 2022-02-02 Office [facility] 1.2.840.114 [id number] Univers 11:30:00 12:07:03 Visit [facility] 350.1.13.10 it y of [place] 4.2.7.2.686 Real as SYED?BLEA [id number] [address] OFFICE [facility] 2022-01-22 2022-01-22 Outpatient R BLAIR GALINDO [facility] 10 [id number] Univers 09:00:00 09:00:00 BLAIR GALINDO i ty [facility] 2022-01-08 2022-01-08 Outpatient R BLAIR GALINDO [facility] 10 [id number] Univers 10:30:00 10:30:00 BLAIR GALINDO i ty [facility] 2022-01-08 2022-01-08 Refill [facility]strad[facility]ynAL[facility] 1.2.840.114 [id number] Univers 00:00:00 00:00:00 Lucy [facility] 350.1.13.10 it y of [place] 4.2.7.2.686 Real as SYED?BLEA [id number] Ri nidhi HYATT[address] MEDICAL OFFICE [facility] 2021-11-27 2021-11-27 Outpatient R VINH [facility] [id number] Univers 11:00:00 11:50:48 HUA combs [facility] 2021-11-27 2021-11-27 Office [facility] 1.2.840.114 [id number] Univers 11:00:00 11:50:48 Visit Hua [facility] 350.1.13.10 it y of [place] 4.2.7.2.686 Real as SYED?BLEA [id number] Ri isra[address] MEDICAL OFFICE [facility] 2021-11-27 2021-11-27 Outpatient [facility] [id number] Univers 11:00:00 11:50:48 HUA combs [facility] 2021-11-27 2021-11-27 Orders Doctor TOWNSEND 1..840.114 [id number] Univers 00:00:00 00:00:00 Only Unassigned, SEAN 350.1.13.10 [facility] 4.2.7.2.686 Real as [id number] [address] 2021-11-24 2021-11-24 Telephone [facility] 1.2.840.114 [id number] Univers 00:00:00 00:00:00 [facility] 350.1.13.10 it y of [place] 4.2.7.2.686 Real as SYED?BLEA [id number] Ri isra[address] MEDICAL OFFICE [facility] 2021-11-08 2021-11-08 Outpatient R DIMITRIS [facility] [id number] Univers 10:30:00 10:30:00 HORTENSIA ity [facility] 2021-10-27 2021-10-27 Telephone [facility] 1.2.840.114 [id number] Univers 00:00:00 00:00:00 [facility] 350.1.13.10 it y of [place] 4.2.7.2.686 Real as SYED?BLEA [id number] Ri isra[address] OFFICE [facility] 2021-09-13 2021-09-13 Telephone [facility] 1.2.840.114 [id number] Univers 00:00:00 00:00:00 Lucy HEALTH 350.1.13.10 it y of [place] 4.2.7.2.686 Real as SYED?BLEA [id number] [facility] OLENA[address] OFFICE [facility] 2021-08-14 2021-08-14 [facility] 1.2.840.114 [id number] Univers 00:00:00 00:00:00 Lucy HEALTH 350.1.13.10 it y of [place] 4.2.7.2.686 Real as SYED?BLEA [id number] [address] 2021-08-14 2021-08-14 [facility] 1.2.840.114 [id number] Univers 00:00:00 00:00:00 Wondiful A HEALTH 350.1.13.10 ity of [place] 4.2.7.2.686 Real as SYED?BLEA [id number] [address] OFFICE [facility] 2021-08-14 2021-08-14 [facility] 1.2.840.114 [id number] Univers 00:00:00 00:00:00 Wondiful A HEALTH 350.1.13.10 ity of [place] 4.2.7.2.686 Real as SYED?BLEA [id number] [address] OFFICE [facility] 2021-08-11 2021-08-11 Telephone [facility] 1.2.840.114 [id number] Univers 00:00:00 00:00:00 Lucy HEALTH 350.1.13.10 it y of [place] 4.2.7.2.686 Real as SYED?BLEA [id number] [address] OFFICE [facility] 2021-08-10 2021-08-10 Telephone [facility] 1.2.840.114 [id number] Univers 00:00:00 00:00:00 Lucy HEALTH 350.1.13.10 it y of [place] 4.2.7.2.686 Real as SYED?BLEA 218.8945537 Ri nidhi NANCE 044 [facility] OFFICE [facility] 2021-08-09 2021-08-09 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, Ang - Db [facility] 1.2.840.1 14 [id number] Univers 13:30:00 13:37:44 Visit Lucy Shaffer [facility] 350.1.13 .10 ity of [place] 4.2.7.2.686 Real as SYED?BLEA [phone] Ri nidhi NANCE 353 [facility] OFFICE [facility] 2021-08-09 2021-08-09 Outpatient Sara [facility] [id number] Univers 13:00:00 13:29:43 [facility] 2021-08-09 2021-08-09 Office [facility] 1.2.840.114 [id number] Univers 13:00:00 13:15:00 [place] [address].1.13.10 it y of [place] [facility] 4.2.7.2.686 Real as SYED?BLEA [id number] [facility] OLENA[address] OFFICE [facility] 2021-08-09 2021-08-09 Outpatient R EDMUND [facility] [id number] Univers 13:00:00 13:00:00 [facility] 2021-07-11 2021-07-11 [facility] [place] [id number] Univers 13:30:00 14:00:44 [facility] 2021-07-11 2021-07-11 Outpatient [facility] [place] [id number] Univers 13:30:00 14:00:44 [facility] 2021-07-11 2021-07-11 Office [facility] 1.2.840.114 [id number] Univers 13:30:00 14:00:00 Visit [place] [address].1.13.10 it y of [place] 4.2.7.2.686 Real as SYED?BLEA [id number] Ri nidhi HYATT[address] OFFICE [facility] 2021-07-11 2021-07-11 Outpatient R EDMUND [facility] [id number] Univers 13:30:00 13:30:00 LUCY ity of [facility] 2021-07-11 2021-07-11 Orders Doctor CARY 1.2.840.114 [id number] Univers 00:00:00 00:00:00 Only Unassigned, SEAN 350.1.13.10 ity of [place] [facility] 4.2.7.2.686 Real as [id number] [facility] [address] 2021-06-29 2021-06-29 Orders Doctor CARY 1.2.840.114 [id number] Univers 00:00:00 00:00:00 Only Unassigned, SEAN 350.1.13.10 ity of [place] [facility] 4.2.7.2.686 Real as [id number] [facility] [address] 2021-06-16 2021-06-16 Shanta Bridges [facility] 1.2.840.114 [id number] Univers 00:00:00 00:00:00 Wondiful A HEALTH 350.1.13.10 ity of [place] 4.2.7.2.686 Real as SYED?BLEA [id number] [address] MEDICAL OFFICE BUILDING 2021-06-12 2021-06-13 Emergency X TED, Taras [facility] ERT [id number] Univers 20:06:00 02:41:00 ity of [facility] 2021-06-12 2021-06-13 Emergency Taras Us [facility] 1.2.840.114 [id number] Univers 20:06:00 02:41:00 Melveda CHAPMAN 350.1.13.10 i ty [facility] 4.2.7.2.686 [place] [facility] [id number] [facility] [address] 2021-06-12 2021-06-13 Emergency X Taras US [facility] ERT [id number] Univers 20:06:00 02:41:00 ity of [facility] 2021-04-07 2021-04-07 Outpatient R BLAIR GALINDO [facility] 10 [id number] Univers 13:00:00 13:00:00 BLAIR GALINDO i ty of [facility] 2021-03-23 2021-03-23 Outpatient R SAMI [facility] [id number] Univers 15:30:00 15:30:00 MAURIZIO gautam [facility] 2021-03-16 2021-03-16 Outpatient R SAMI [facility] [id number] Univers 15:30:00 15:30:00 MAURIZIO gautam [facility] 2021-03-03 2021-03-03 Outpatient R KARTHIKEYAN [facility] [id number] Univers 08:30:00 08:30:00 YOSEF gautam [facility] 2021-02-09 2021-02-09 Transition MANJINDER [place] 1.2.840.114 [id number] Univers 00:00:00 00:00:00 of Care Sayra BADILLO 350.1.13.10 i ty of [id number] [id number] [facility] [address] 2021-02-05 2021-02-08 [facility] [id number] Univers 10:43:00 17:37:00 ANASTASIA [facility] 2021-02-05 2021-02-08 Emergency Lennox Crystal [facility] 1.2.840. 114 [id number] Univers 10:43:00 17:37:00 Anastasia Krishnan 350.1.13.10 [id number] [id number] [facility] [address] 2021-02-02 2021-02-02 Transition MANJINDER [place] 1.2.840.114 [id number] Univers 00:00:00 00:00:00 of Care Anderson [place] 350.1.13.10 [id number] [id number] [facility] [address] 2021-01-27 2021-02-01 Inpatient X MEDINA [facility] DE[place] [id number] Univers 22:36:00 16:30:00 MOSHE [facility] 2021-01-27 2021-02-01 [place] [facility] Urszula Baeza [facility] 1.2.840. 114 [id number] Univers 22:36:00 16:30:00 Encounter Carmen Haneyserina CHAPMAN 350.1.13.10 ity of [facility] 4.2.7.2.686 [facility] [phone] [place] [address] [place] 2021-01-31 2021-01-31 Patient Fabiano [facility] 1.2.840.114 [id number] Univers 00:00:00 00:00:00 Outreach Wendy SIMS 350.1.13.10 i ty of [place] 4.2.7.2.686 Real as SYED?BLEA [phone] Ri isra[address] MEDICAL OFFICE BUILDING 2021-01-21 2021-01-21 Emergency [facility] 1.2.854.373 [id number] Univers 03:45:00 05:15:00 Titus Chapman 350.1.13.10 i ty of [place] 4.2.7.2.686 [facility] [phone] [address] 2021-01-21 2021-01-21 Emergency X SINGER [facility] ERT [id number] Univers 03:45:00 05:15:00 TITUS combs [facility] 2021-01-10 2021-01-10 Transition Gilberto Landtono 1.2.840.114 [id number] Univers 00:00:00 00:00:00 of Care Sayra Badillo 350.1.13.10 i ty of [place] 4.2.7.2.686 [facility] [phone] [facility] [address] 2021-01-04 2021-01-08 Hospital Yefri Claudio [facility] 1.2.840.1 14 [id number] Univers 16:12:00 13:20:00 Encounter Radu Treadwell 350.1.13.10 ity of [place] 4.2.7.2.686 [facility] [phone] [address] ([facility]) 2021-01-04 2021-01-08 Inpatient X HERI KSLIZZETTE [facility] [id number] Univers 16:12:00 13:20:00 RADU combs of [facility] 2021-01-08 2021-01-08 Telephone Shelby Diaz [facility] 1.2.840.114 [id number] Univers 00:00:00 00:00:00 Health 350.1.13.10 it y of [place] 4.2.7.2.686 [facility] [phone] [address] ([facility]) 2021-01-05 2021-01-05 [facility] 1.2.840.114 [id number] Univers 13:15:00 14:36:00 Yosef SPECIALTY 350.1.13.10 ity of CARE 4.2.7.2.686 [facility] AT [phone] [address] 2021-01-04 2021-01-04 Emergency [facility] 1.2.075.201 [id number] Univers 12:49:00 15:28:00 Titus Chapman 350.1.13.10 i ty of [place] 4.2.7.2.686 [facility] [phone] [facility] [address] 2020-12-23 2020-12-23 Transition Manjinder Pearce 1.2.840.114 [id number] Univers 00:00:00 00:00:00 of Care Debra Badillo 350.1.13.10 i ty of [place] 4.2.7.2.686 [facility] [phone] [facility] [address] 2020-12-15 2020-12-22 Hospital Titus Marin [facility] 1.2.840.1 14 [id number] Univers 09:02:00 14:05:00 Encounter Deric Santos 350.1.13.10 ity of [place] 4.2.7.2.686 [facility] [phone] [place] [address] 2020-12-15 2020-12-22 Inpatient X TOM [facility] DEWEY [id number] Univers 09:02:00 14:05:00 DERIC combs [facility] 2020-12-19 2020-12-19 Outpatient R [facility] [id number] Univers 16:00:00 16:00:00 ity of [place] [facility] 2020-12-15 2020-12-15 [facility] [id number] Univers 14:30:00 14:30:00 WONDIFUL ity o f [facility] 2020-12-12 2020-12-12 Telephone [facility] 1.2.840.114 [id number] Univers 00:00:00 00:00:00 Wondiful A Health 350.1.13.10 ity of [place] 4.2.7.2.686 Real as Syed?Blea [phone] Ri nidhi nance [address] [place] [address] Medical Office Building 2020-12-11 2020-12-11 Emergency [facility] [id number] Univers 09:03:00 12:08:00 CATALINA combs [facility] 2020-12-11 2020-12-11 Emergency [facility] 1.2.840.114 [id number] Univers 09:03:00 12:08:00 Catalina Chapman 350.1.13.10 ity of [place] 4.2.7.2.686 [place] [phone] [place] [address] [place] 2020-12-01 2020-12-01 Transition Manjinder Pearce 1.2.840.114 [id number] Univers 00:00:00 00:00:00 of Care Debra Badillo 350.1.13.10 i ty of [place] 4.2.7.2.686 [place] [phone] [facility] [address] 2020-11-23 2020-11-30 Hospital Malcolm Altman [facility] 1.2.840. 114 [id number] Univers 19:30:00 16:06:00 Encounter Moshe Haney 350.1.13.10 ity of [place] 4.2.7.2.686 [place] [phone] [address] 2020-11-23 2020-11-30 Inpatient X ANUPAMA [facility] [id number] Univers 19:30:00 16:06:00 MALCOLM [facility] 2020-11-23 2020-11-23 Orders Doctor TOWNSEND 1.2.840.114 [id number] Univers 00:00:00 00:00:00 Only Unassigned, SEAN 350.1.13.10 ity of [place] [facility] 4.2.7.2.686 Real as [phone] [facility] [address] 2020-11-08 2020-11-08 Refill [facility] 1.2.840.114 [id number] Univers 00:00:00 00:00:00 Wondiful A Health 350.1.13.10 ity of [place] 4.2.7.2.686 Real as Professio [phone] [address] Office [facility] 2020-11-04 2020-11-04 Office [facility] 1.2.840.114 [id number] Univers 10:43:14 11:27:21 Visit Wondiful A Health 350.1.13.10 ity of [place] 4.2.7.2.686 Real as Professio [phone] [address] 2020-11-04 2020-11-04 Outpatient [facility] [id number] Univers 10:45:00 10:45:00 WONDIFUL ity o f [facility] 2020-10-30 2020-10-31 Emergency [facility] 1.2.304.568 [id number] Univers 22:35:00 02:17:00 Urszula Mendoza [place] 350.1.13.10 ity of [place] 4.2.7.2.686 [place] [facility] [id number] [facility] [address] 2020-10-31 2020-10-31 Telephone [facility] 1.2.840.114 [id number] Univers 00:00:00 00:00:00 Wondiful A Health 350.1.13.10 ity of [place] 4.2.7.2.686 Real as Professio [phone] [address] Office [facility] 2020-10-28 2020-10-28 Telephone [facility] 1.2.840.114 [id number] Univers 00:00:00 00:00:00 Wondiful A Health 350.1.13.10 ity of [place] 4.2.7.2.686 Real as Professio [phone] [address] One 2020-10-18 2020-10-18 Emergency , [facility] 1.2.443.476 [id number] Univers 02:29:00 04:26:00 Titus Chapman 350.1.13.10 i ty of [place] 4.2.7.2.686 [place] [facility] [phone] [address] 2020-10-18 2020-10-18 Telephone [facility] 1.2.840.114 [id number] Univers 00:00:00 00:00:00 Wondiful A Health 350.1.13.10 ity of [place] 4.2.7.2.686 Real as Professio [phone] [address] One 2020-10-13 2020-10-13 Emergency Cecene, [facility] 1.2.187.303 [id number] Univers 02:21:00 05:01:00 Urszula Chapman 350.1.13.10 ity of [place] 4.2.7.2.686 [facility] [id number] [address] 2020-10-10 2020-10-10 Telephone [facility] 1.2.840.114 [id number] Univers 00:00:00 00:00:00 Wondiful A Health 350.1.13.10 ity of [place] 4.2.7.2.686 Real as Professio [phone] [address] One 2020-10-07 2020-10-07 Orders Doctor CARY 1.2.840.114 [id number] Univers 00:00:00 00:00:00 Only Unassigned, SEAN 350.1.13.10 ity of [place] [facility] 4.2.7.2.686 Real as [phone] [address] 2020-10-06 2020-10-06 Telephone [facility] 1.2.840.114 [id number] Univers 00:00:00 00:00:00 Wondiful A Health 350.1.13.10 ity of [place] 4.2.7.2.686 Real as Professio [id number] [address] One 2020-10-06 2020-10-06 Telephone [facility] 1.2.840.114 [id number] Univers 00:00:00 00:00:00 Wondiful A Health 350.1.13.10 ity of [place] 4.2.7.2.686 Real as Professio [phone] [address] One 2020-10-03 2020-10-03 Office [facility] 1.2.840.114 [id number] [facility] 16:28:13 17:20:02 Visit Wondiful A Health 350.1.13.10 ity of [place] 4.2.7.2.686 Real as Professio [phone] [address] One 2020-10-03 2020-10-03 Outpatient [facility] [id number] [facility] 16:30:00 16:30:00 WONDIFUL ity o f [facility] 2020-09-30 2020-09-30 Telephone [facility] 1.2.840.114 [id number] [facility] 00:00:00 00:00:00 Wondiful A Health 350.1.13.10 ity of [place] 4.2.7.2.686 Real as Professio [phone] [address] One 2020-09-28 2020-09-28 Emergency [facility] 1.2.423.381 [id number] 08:21:00 11:41:00 Lennox [place] 350.1.13.10 [place] 4.2.7.2.686 [place] [phone] 2020-09-28 2020-09-28 Emergency [facility] 1.2.421.385 [id number] [facility] 08:21:00 11:41:00 Lennox [place] 350.1.13.10 i ty of [place] 4.2.7.2.686 [place] [phone] [facility] [address] 2020-09-27 2020-09-27 Collector Of Internal Revenue Tonia Connolly Lab Main [facility] 1.2.8 40.114 [id number] Univers 17:06:57 17:21:57 Visit Mike Story 350.1.13.10 ity of [place] 4.2.7.2.686 [place] [phone] Ri dicnell [facility] [address] Building 2020-09-27 2020-09-27 Office [facility] 1.2.840.114 [id number] 16:25:25 16:55:20 Visit Mike Sims 350.1.13.10 [place] 4.2.7.2.686 Professio [phone] [place] [address] Office Building One 2020-09-27 2020-09-27 Office [facility] 1.2.840.114 [id number] Univers 16:25:25 16:55:20 [facility] 350.1.13.10 i ty of [place] 4.2.7.2.686 Real as Professio [phone] [facility] [address] Office Building One 2020-09-27 2020-09-27 Outpatient [facility] [id number] Univers 16:30:00 16:30:00 MIKE combs o f [facility] 2020-09-26 2020-09-26 Transition Manjinder Pearce 1.2.840.114 [id number] Univers 00:00:00 00:00:00 of Care Debra Badillo 350.1.13.10 i ty of [place] 4.2.7.2.686 [place] [phone] [facility] [address] 2020-09-21 2020-09-24 [facility] Taras Us [facility] 1.2.840.1 14 [id number] Univers 16:20:00 15:47:00 Encounter Deric Santos 350.1.13.10 ity of [place] 4.2.7.2.686 [place] [phone] [facility] [address] 2020-09-21 2020-09-24 Outpatient X TOM [facility] DEWEY [id number] Univers 16:20:00 15:47:00 DERIC combs [facility] 2020-09-22 2020-09-22 Outpatient R EVON [facility] [id number] Univers 14:00:00 14:00:00 CHETNA angiegautam [facility] 2020-09-16 2020-09-16 Nella Bridges [facility] 1.2.840.114 [id number] Univers 00:00:00 00:00:00 Wondiful A Health 350.1.13.10 ity of [place] 4.2.7.2.686 Real as Professio [phone] [address] Office [facility] One 2020-09-13 2020-09-13 Orders Doctor CARY 1.2.840.114 [id number] Univers 00:00:00 00:00:00 Only Unassigned, SEAN 350.1.13.10 ity of [place] [facility] 4.2.7.2.686 Real as [phone] [facility] [address] 2020-09-06 2020-09-06 Refill [facility] 1.2.840.114 [id number] Univers 00:00:00 00:00:00 Wondiful A Health 350.1.13.10 ity of [place] 4.2.7.2.686 Real as Professio [phone] [address] One 2020-08-26 2020-08-28 [facility] Sage Dixonin Wendy [facility] 1 .2.840.114 [id number] Univers 09:07:00 11:38:00 Encounter Deric Santos 350.1.13.10 ity of [place] 4.2.7.2.686 [place] [phone] [facility] [address] 2020-08-26 2020-08-28 Inpatient Eileen SANTOS [facility] DEWEY [id number] Univers 09:07:00 11:38:00 DERIC combs [facility] 2020-08-26 2020-08-28 Inpatient Eileen SANTOS [facility] DE[facility]Y [id number] Univers 09:07:00 11:38:00 DERIC [facility] 2020-08-24 2020-08-24 Transition Manjinder Pearce 1.2.840.114 [id number] Univers 00:00:00 00:00:00 of Care Debra Badillo 350.1.13.10 i ty of [place] 4.2.7.2.686 [place] [phone] [facility] [address] 2020-08-22 2020-08-23 [facility] MarinTitus [facility] 1.2.840.1 14 [id number] Univers 09:28:00 16:15:00 Encounter Anastasia Krishnan 350.1.13.10 ity of [place] 4.2.7.2.686 [place] [phone] [facility] [address] 2020-08-22 2020-08-23 Outpatient X KIMO [facility] DE[facility] [id number] Univers 09:28:00 16:15:00 ANASTASIA [facility] 2020-07-12 2020-07-12 [facility] [id number] Univers 13:00:00 13:00:00 WONDIFUL ity o f [facility] 2020-06-15 2020-06-15 Refill [facility] 1.2.840.114 [id number] Univers 00:00:00 00:00:00 Wondiful A Health 350.1.13.10 ity of [place] 4.2.7.2.686 Real as Professio [phone] [address] Office Building One 2020-05-31 2020-05-31 Outpatient R EDMUND [facility] [id number] Univers 15:45:00 15:45:00 LUCY [facility] 2020-04-20 2020-04-20 Emergency [facility] 1.2.085.688 [id number] Univers 16:13:00 21:39:00 Kary Chapman 350.1.13.10 i ty of [place] 4.2.7.2.686 [place] [id number] [facility] [address] 2020-04-20 2020-04-20 Telephone Yuliana [facility] 1.2.840.114 [id number] Univers 00:00:00 00:00:00 Wondiful A Health 350.1.13.10 ity of [place] 4.2.7.2.686 Real as Professio [phone] [address] One 2020-04-14 2020-04-14 Out[facility] [id number] Univers 10:00:00 10:00:00 KARISHMA gautam [facility] 2020-04-04 2020-04-04 Outpatient R [facility] [id number] Univers 09:30:00 09:30:00 CINDY garret [facility] 2020-03-31 2020-03-31 Outpatient [facility] [id number] Univers 09:30:00 09:30:00 [facility] 2020-03-28 2020-03-28 Orders Doctor TOWNSEND 1..840.114 [id number] Univers 00:00:00 00:00:00 Only Unassigned, SEAN 350.1.13.10 ity of [place] [facility] 4.2.7.2.686 Real as [phone] [address] 2020-03-23 2020-03-23 Outpatient [facility] [id number] Univers 14:45:00 14:45:00 KARISHMA [facility] 2020-03-21 2020-03-21 Telephone [facility] 1..840.114 [id number] Univers 00:00:00 00:00:00 Wondiful A Health 350.1.13.10 ity of [place] 4.2.7.2.686 Rael as Professio [phone] [address] Office [facility] One 2020-03-17 2020-03-17 Outpatient [facility] [id number] Univers 09:15:00 09:15:00 KARSIHMA [facility] 2020-03-15 2020-03-15 Telephone [facility] ..840.114 [id number] Univers 00:00:00 00:00:00 Wondiful A Health 350.1.13.10 ity of [place] 4.2.7.2.686 Real as Professio [phone] Ri dical nal 044 [facility] 2020-03-09 2020-03-09 Refill [facility] 1.2.840.114 [id number] Univers 00:00:00 00:00:00 Wondiful A Health 350.1.13.10 ity of [place] 4.2.7.2.686 Real as Professio [phone] Ri dical nal 044 [facility] 2020-03-07 2020-03-07 Office [facility] 1.2.840.114 [id number] Univers 10:31:23 11:33:24 Visit Wonpiero A Health 350.1.13.10 ity of [place] 4.2.7.2.686 Real as Professio [phone] Ri dical nal 044 [facility] 2020-03-07 2020-03-07 Office [facility] 1.2.145.062 [id number] Univers 09:21:46 10:08:12 Visit Cindy Chapman 350.1.13.10 i ty of [place] 4.2.7.2.686 [place] Profess[place] [phone] [facility] 188 [facility] 2020-03-07 2020-03-07 Outpatient R [facility] [id number] Univers 09:15:00 09:15:00 CINDY combs [facility] 2020-02-23 2020-02-23 Outpatient [facility] [id number] Univers 09:00:00 09:00:00 ALEXIS ity of [facility] 2020-02-18 2020-02-18 Transition Manjinder Morrison .2.840.114 [id number] Univers 00:00:00 00:00:00 of Care Keya Badillo 350.1.13.10 it y of [place] 4.2.7.2.686 [place] [phone] [address] 2020-02-17 2020-02-17 Outpatient [facility] [id number] Univers 00:00:00 00:00:00 ALEXIS ity of [facility] 2020-02-17 2020-02-17 Outpatient R ETHEL [facility] [id number] Univers 00:00:00 00:00:00 RAWAN ity of [facility] 2020-02-17 2020-02-17 Transition Manjinder Morrison 1.2.840.114 [id number] Univers 00:00:00 00:00:00 of Care Keya Badillo 350.1.13.10 it y of [place] 4.2.7.2.686 [facility] [id number] [facility] [address] 2020-02-09 2020-02-16 [facility] Kary Rush R [facility] 1.2.840.1 14 [id number] Univers 16:05:00 17:18:00 Encounter Anastasia Krishnan 350.1.13.10 ity of [place] 4.2.7.2.686 [facility] [phone] [facility] [address] 2020-02-09 2020-02-09 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 840.114 [id number] Univers 15:44:03 16:04:03 Visit Chetna [facility] 350.1.13.10 ity of [place] 4.2.7.2.686 [place] Professio [phone] Ri dical nal [address] Office Building One 2020-02-09 2020-02-09 Office Yuliana [facility] 1.2.840.114 [id number] Univers 15:16:59 15:50:02 Visit Pam [facility] 350.1.13.10 ity of [place] 4.2.7.2.686 [facility] Professio [phone] Ri dical nal [address] Office Building One 2020-02-09 2020-02-09 Outpatient R YULIANA [facility] [id number] Univers 15:30:00 15:30:00 WONDIFUL ity o f [facility] 2020-02-04 2020-02-04 Transition Manjinder Morrison 1.2.840.114 [id number] Univers 00:00:00 00:00:00 of Care Keya Badillo 350.1.13.10 it y of [place] 4.2.7.2.686 [place] [phone] [facility] [address] 2020-02-03 2020-02-03 Transition Manjinder Morrison 1.2.840.114 [id number] Univers 00:00:00 00:00:00 of Care Keya Badillo 350.1.13.10 it y of [place] 4.2.7.2.686 [place] [id number] [facility] [address] 2020-01-28 2020-02-02 [facility] Dangelo Carty 1.2.840.11 4 [id number] Univers 22:39:00 17:40:00 Encounter Gilmarlurdesguerline Patriciagautam Gaspar 350.1.13.10 ity of [facility] 4.2.7.2.6 86 Sandra Mcdonald [phone] [facility] [address] 2020-02-02 2020-02-02 Case CARY [place] 1.2.840.114 [id number] Univers 00:00:00 00:00:00 Management Alexis GASPAR 350.1.13.10 ity of [facility] 4.2.7.2.686 Real as [phone] [facility] [address] 2020-02-01 2020-02-01 Anesthesia Kamille Varma [facility] 1.2.840 .114 [id number] Univers 11:11:00 11:46:00 Preston Murray [place] 350.1.13.10 ity of [place] 4.2.7.2.686 Rael as BLDG [id number] [facility] [address] 2020-01-28 2020-01-28 Outpatient R YULIANA [facility] [id number] Univers 09:00:00 09:00:00 WONDIFUL ity o f [facility] 2020-01-28 2020-01-28 Telephone Yuliana [facility] 1.2.840.114 [id number] Univers 00:00:00 00:00:00 Wondiful A Health 350.1.13.10 ity of [place] 4.2.7.2.686 Real as Professio [phone] Ri dical nal [address] Office Building One 2020-01-26 2020-01-26 Office SOCORRO [place] 1.2.240.227 [id number] Univers 08:27:31 09:20:57 [facility] 350.1.13.10 ity of [place] 4.2.7.2.686 [place] [phone] [facility] [address] 2020-01-26 2020-01-26 Outpatient R ETHEL [facility] [id number] Univers 09:00:00 09:00:00 RAWDEREK ity of [facility] 2020-01-21 2020-01-21 Transition Manjinder Francisco 1.2.840.114 [id number] Univers 00:00:00 00:00:00 of Care Anderson Lopezy 350.1.13.10 ity of [place] 4.2.7.2.686 [place] [phone] [facility] [address] 2020-01-15 2020-01-20 [facility] Eligio Hammer [facility] 1.2.840.114 [id number] Univers 23:47:00 17:26:00 Encounter Eli Toney 350.1.13.10 ity of [place] 4.2.7.2.686 [place] [phone] [facility] [address] 2020-01-15 2020-01-15 Orders Doctor CARY 1.2.840.114 [id number] Univers 00:00:00 00:00:00 Only Unassigned, SEAN 350.1.13.10 ity of [place] [facility] 4.2.7.2.686 Real as [phone] [facility] [address] 2020-01-12 2020-01-12 Transition Manjinder Francisco 1.2.840.114 [id number] Univers 00:00:00 00:00:00 of Care Anderson Lopezy 350.1.13.10 ity of [place] 4.2.7.2.686 [place] [phone] [facility] [address] 2020-01-05 2020-01-11 [facility] Lizet Sherwood [facility] 1.2.840.11 [id number] Univers 15:45:00 14:20:00 Encounter Maurice Chaudhary 350.1.13.10 ity of [place] 4.2.7.2.686 [place] [phone] [facility] [address] 2020-01-05 2020-01-05 Urgent Provider, [facility] 1.2.840.114 [id number] Univers 15:08:18 15:28:18 Care Chetna Barnard 350.1.13.10 ity of [place] 4.2.7.2.686 Real as Professio [phone] [address] Office [facility] 2020-01-05 2020-01-05 Outpatient R EVON [facility] [id number] Univers 15:20:00 15:20:00 CHETNA gautam [facility] 2019-12-17 2019-12-17 Telephone [facility] 1.2.840.114 [id number] Univers 00:00:00 00:00:00 [facility] 350.1.13.10 it y of [place] 4.2.7.2.686 Real as Professio [phone] [address] 2019-12-16 2019-12-16 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 840.114 [id number] Univers 09:31:42 09:41:42 Visit EstradadevynLucy [facility] 350.1.13 .10 ity of [place] 4.2.7.2.686 Real as Professio [phone] [address] 2019-12-16 2019-12-16 Office [facility] 1.2.840.114 [id number] Univers 09:09:54 09:24:54 Visit [facility] 350.1.13.10 it y of [place] 4.2.7.2.686 Real as Professio [phone] [address] 2019-12-16 2019-12-16 Outpatient R EDMUND [facility] [id number] Univers 09:15:00 09:15:00 LUCY combs [facility] 2019-07-13 2019-07-13 Telephone [facility] 1.2.840.114 [id number] Univers 00:00:00 00:00:00 [facility] [id number] ity of [place] [id number] Real as Professio [phone] Ri dic[address] Office [facility] 2019-06-29 2019-06-29 Telephone Yuliana [facility] 1.2.840.114 [id number] Univers 00:00:00 00:00:00 [facility] [id number] ity of [place] [id number] Real as Professio [phone] [address] Office [facility] 2019-06-17 2019-06-17 Ancillary Rosa Diggs [facility] 1.2.840 .114 [id number] Univers 12:02:29 13:02:29 Visit Jiang, Nidhi [facility] [id number] ity [place] - [phone] Med ical [address] 2019-06-17 2019-06-17 Outpatient R APOLINAR [facility] [id number] Univers 13:00:00 13:00:00 NIDHI ity of [facility] 2019-06-04 2019-06-05 Office [facility] 1.2.840.114 [id number] Univers 14:36:18 15:59:44 Visit [facility] [id number] [place] - [phone] Med ical [address] 2019-06-04 2019-06-04 Outpatient R SAMI [facility] [id number] Univers 15:00:00 15:00:00 MAURIZIO ity of White [facility] 2019-06-02 2019-06-02 Telephone [facility] 1..840.114 [id number] Univers 00:00:00 00:00:00 [facility] 350.1.13.10 ity of [place] 4.2.7.2.686 Real as Professio [phone] [address] Office [facility] One 2019-05-22 2019-05-22 Telephone [facility] 1.2.840.114 [id number] Univers 00:00:00 00:00:00 [facility] 350.1.13.10 ity of [place] 4.2.7.2.686 Real as Professio [phone] Ri [facility]nell [facility] [address] Building One 2019-05-20 2019-05-20 [facility] 1.2.840.114 [id number] Univers 14:00:00 23:59:00 Encounter Maurizio Chapman 350.1.13.10 it[place] [phone] [address] 2019-05-20 2019-05-20 Outpatient R [facility] [id number] Univers 13:45:50 13:59:00 MAURIZIO ity of [facility] 2019-05-20 2019-05-20 [facility] 1.2.840.114 [id number] Univers 13:45:00 13:59:00 Encounter Maurizio Chapman 350.1.13.10 it[place] of [place].2.[place] [phone] [address] 2019-05-20 2019-05-20 Orders Doctor CARY 1.2.840.114 [id number] Univers 00:00:00 00:00:00 Only Unassigned, SEAN 350.1.13.10 ity of [place] [facility] 4.2.7.2.686 Real as [phone] [place] [address] [address] 2019-05-18 2019-05-18 [facility] 1.2.840.114 [id number] Univers 14:09:00 23:59:00 Encounter Maurizio Chapman 350.1.13.10 ity of [place] 4[place].2.[place] [phone] [address] 2019-05-18 2019-05-18 [facility] 1.2.840.114 [id number] Univers 14:00:00 14:08:00 Encounter Maurizio Chapman 350.1.13.10 ity of [place] 4[place].2.[place] [phone] [address] 2019-05-18 2019-05-18 Outpatient R SAMI [facility] [id number] Univers 00:00:00 14:08:00 MAURIZIO combs [facility] 2019-05-12 2019-05-12 Outpatient R VIDAL [facility] [id number] Univers 14:45:00 14:45:00 LEXIE combs [facility] 2019-05-12 2019-05-12 [employer] Cathleen, Tonia Lab Main [facility] 1.2.8 40.114 [id number] Univers 14:36:22 14:40:52 Visit VidalLexie 350.1.13 .10 ity of [place] 4.2.7.2.686 [place] [phone] Ri dical nal [address] 2019-05-12 2019-05-12 Orders Doctor CARY 1.2.840.114 [id number] Univers 00:00:00 00:00:00 Only Unassigned, SEAN 350.1.13.10 ity of [facility] 4.2.7.2.686 Real as [phone] [facility] [address] 2019-05-11 2019-05-11 CARY Tee 1.2.840.114 [id number] Univers 00:00:00 00:00:00 Management Cain GASPAR 350.1.13.10 ity of [facility] 4.2.7.2.686 Real as [phone] [facility] [address] 2019-05-11 2019-05-11 Telephone Yuliana [facility] 1.2.840.114 [id number] Univers 00:00:00 00:00:00 [facility] 350.1.13.10 ity of [place] 4.2.7.2.686 Real as Professio [phone] Ri dical nal [address] Building One 2019-05-08 2019-05-08 Telephone Sami [facility] 1.2.265.081 [id number] Univers 00:00:00 00:00:00 Maurizio Health 350.1.13.10 it y of [place].2.[place] [facility] [phone] [address] 2019-05-07 2019-05-07 Office Sami [facility] 1.2.840.114 [id number] Univers 15:15:37 18:23:09 Visit Maurizio Health 350.1.13.10 it y of [place] 4.2.7.2.686 [place] [facility] - [phone] [address] 2019-05-07 2019-05-07 Outpatient R SAMI [facility] [id number] Univers 15:45:00 15:45:00 MAURIZIO ity of [facility] 2019-04-29 2019-04-29 Telephone Yuliana [facility] 1.2.840.114 [id number] Univers 00:00:00 00:00:00 [facility] 350.1.13.10 ity of [place] 4.2.7.2.686 Real as Professio [phone] [address] Office Building [facility] 2019-04-29 2019-04-29 Orders Doctor CARY 1.2.840.114 [id number] Univers 00:00:00 00:00:00 Only Unassigned, SEAN 350.1.13.10 ity of [place] [facility] 4.2.7.2.686 Real as [phone] [address] 2019-04-28 2019-04-28 Outpatient R YULIANA [facility] [id number] Univers 16:00:00 16:46:38 WONDIFUL ity o f [facility] 2019-04-28 2019-04-28 Office Yuliana [facility] 1.2.840.114 [id number] Univers 15:48:42 16:46:38 Visit [facility] 350.1.13.10 ity of [place] 4.2.7.2.686 Real as Professio [phone] [facility] nal [address] [place] [address] Office Building [facility] 2019-04-13 2019-04-13 Outpatient R YULIANA [facility] [id number] Univers 14:30:00 14:56:12 WONDIFUL ity o f [facility] 2018-06-13 2018-06-13 Outpatient [facility] [place] [id number] Common 13:53:00 13:53:[address] [facility] 2018-03-18 2018-03-18 Outpatient [facility] [place] 23 [id number] Common 16:22:00 16:22:[address] [facility] 2018-03-03 2018-03-03 [place] [place] 23 [id number] Common 15:05:00 15:05:[address] [facility] 2018-01-02 2018-01-02 Out[facility] [id number] Common 11:45:00 11:45:[address] [facility] 2017-12-16 2017-12-16 [place] [place] 21 [id number] Common 09:45:00 09:45:[address] [facility] 2017-10-16 2017-10-16 Outpatient [place] [place] 14 [id number] Common 14:17:00 14:17:[address] [facility] 2017-10-15 2017-10-15 Outpatient [facility] [place] 14 [id number] Common 11:31:00 11:31:[address] [facility] 2017-10-09 2017-10-09 Outpatient [facility] [place] 14 [id number] Common 15:30:00 15:30:[address] [facility] Results Test Description Test Time Test Comments Results Result Comments Source COMP. METABOLIC PANEL (70534) 2022-11-28 21:55:35 Test Item Value Reference Range Interpretation Comme nts NA (test code = 6267924124) 138 mmol/L 135-145 K (test code = 1518096054) 3.8 mmol/L 3.5-5.0 CL (test code = 7071621536) 102 mmol/L 98-108 CO2 TOTAL (test code = 7602350998) 26 mmol/L 23-31 AGAP (test code = 6355966514) 10 2-16 BUN (test code = 2220813643) 12 mg/dL 7-23 GLUCOSE (test code = 6362447564) 111 mg/dL 70-110 H CREATININE (test code = 0.59 mg/dL 0.60-1.25 L 9685035436) TOTAL BILI (test code = 1.2 mg/dL 0.1-1.1 H 6636301302) CALCIUM (test code = 2403852671) 9.8 mg/dL 8.6-10.6 T PROTEIN (test code = 5888008570) 8.0 g/dL 6.3-8.2 ALBUMIN (test code = 2748866081) 4.5 g/dL 3.5-5.0 ALK PHOS (test code = 7127146224) 115 U/L 34-122 ALTv (test code = 1742-6) 23 U/L 5-50 AST(SGOT) (test code = 1965656608) 31 U/L 13-40 eGFR (test code = 8701620085) 144.3 mL/min/1.73m2 BERYL (test code = BERYL) [...] tests). Lab Interpretation (test code = Abnormal 59468-7) [facility] Test Item Value Reference Range Interpretation Comments LIPASE (test code = 5469831530) 1473 U/L 0-220 H Lab Interpretation (test code = Abnormal 98946-3) [facility] [id number] 21:44:10 Test Item Value Reference Range Interpretation Comments WBC (test code = 13.10 See_Comment H [Automated 6690-2) message] The system which generated this result transmit meng reference range : 4.20 - 10.70 10*3/?L. The reference range was not used to interpret this result as normal/abnormal . RBC (test code = 5.71 See_Comment H [Automated 789-8) message] The system which generated this result transmit mneg reference range : 4.26 - 5.52 10*6/?L. [...] RDW-SD (test code = 50.9 fL 38.5-51.6 91242-3) RDW-CV (test code = 14.6 % 12.1-15.4 788-0) PLT (test code = 288 See_Comment [Automated 777-3) message] The system which generated this result transmit meng reference range : 150 - 328 10*3/ ?L. The reference range was not u sed to interpret th is result as normal/abnormal . MPV (test code = 10.0 fL 9.8-13.0 01088-9) NRBC/100 WBC (test 0.0 See_Comment [Automat ed code = 4484013153) message] The system which generated this result transmit meng reference range : 0.0 - 10.0 /100 WBCs. The reference range was not used to interpret this result as normal/abnormal . NRBC x10^3 (test code See_Comment [Auto mated = 0891399389) message] The system which generated this result transmit meng reference range : 10*3/?L. The reference range was not used to interpret this result as normal/abnormal . GRAN MAT (NEUT) % 82.5 % (test code = 770-8) IMM GRAN % (test code 0.60 % = 0222482593) LYMPH % (test code = 7.6 % 736-9) MONO % (test code = 8.5 % 5905-5) EOS % (test code = 0.5 % 713-8) BASO % (test code = 0.3 % 706-2) GRAN MAT x10^3(ANC) 10.80 10*3/uL 1.99-6.95 H (test code = 6714350801) IMM GRAN x10^3 (test 0.08 10*3/uL 0.00-0.06 H code = 8359522913) LYMPH x10^3 (test code 1.00 10*3/uL 1.09-3.23 L = 731-0) MONO x10^3 (test code 1.11 10*3/uL 0.36-1.02 H = 742-7) EOS x10^3 (test code = 0.07 10*3/uL 0.06-0.53 711-2) BASO x10^3 (test code 0.04 10*3/uL 0.01-0.09 = 704-7) Lab Interpretation Abnormal (test code = 25437-3) [facility]39729[facility]2022-11-22 19:59:50 Test Item Value Reference Range Interpretation Comments NA (test code = 140 mmol/L 135-145 0512321467) K (test code = 4.0 mmol/L 3.5-5.0 3989635652) CL (test code = 104 mmol/L 98-108 9256921199) CO2 TOTAL (test code = 27 mmol/L 23-31 2617077538) AGAP (test code = 9 2-16 4017885173) BUN (test code = 4 mg/dL 7-23 L 1624190291) GLUCOSE (test code = 94 mg/dL 70-110 5389824376) CREATININE (test code = 0.51 mg/dL 0.60-1.25 L 7682474511) TOTAL BILI (test code = 0.7 mg/dL 0.1-1.7 7357197571) CALCIUM (test code = 9.3 mg/dL 8.6-10.6 2699971377) T PROTEIN (test code = 7.5 g/dL 6.3-8.2 7877784769) ALBUMIN (test code = 4.3 g/dL 3.5-5.0 7557173404) ALK PHOS (test code = 113 U/L 34-122 6151404058) ALTv (test code = 21 U/L 5-50 1742-6) AST(SGOT) (test code = 30 U/L 13-40 4747169491) eGFR (test code = 170.7 mL/min/1.73m2 9503751550) BERYL (test code = BERYL) Association of [...] tests). Lab Interpretation Abnormal (test code = 51731-5) [facility] 19:59:29 Test Item Value Reference Range Interpretation Comments LIPASE (test code = 5406080311) 475 U/L 0-220 H Lab Interpretation (test code = Abnormal 89653-9) [facility] [id number] 19:49:43 Test Item Value Reference Range Interpretation Comments WBC (test code = 8.68 See_Comment [Automated 6790-2) message] The sy stem which generated this result transmitted reference range : 4.20 - 10.70 10*3/?L. The reference range was not used to interpret this result as normal/abnormal . RBC (test code = 5.46 See_Comment [Automated 119-8) message] The sy stem which generated this [...] (test code = 52.1 fL 38.5-51.6 H 86817-6) RDW-CV (test code = 15.0 % 12.1-15.4 788-0) PLT (test code = 269 See_Comment [Automated 937-3) message] The sy stem which generated this result transmitted reference range : 150 - 328 10*3/ ?L. The reference r kevin was not used to interpret this result as normal/abnormal . MPV (test code = 9.6 fL 9.8-13.0 L 48875-1) NRBC/100 WBC (test 0.0 See_Comment [Automat ed code = 2535587105) message] The system which generated this result transmitted reference range : 0.0 - 10.0 /100 WBCs. The refer ence range was not u sed to interpret th is result as normal/abnormal . NRBC x10^3 (test code See_Comment [Auto mated = 5056717021) message] The s ystem which generated this result transmitted reference range : 10*3/?L. The reference range was not used to interpret this result as normal/abnormal . GRAN MAT (NEUT) % 75.7 % (test code = 770-8) IMM GRAN % (test code 0.50 % = 6426805304) LYMPH % (test code = 12.6 % 736-9) MONO % (test code = 9.8 % 5905-5) EOS % (test code = 0.8 % 713-8) BASO % (test code = 0.6 % 706-2) GRAN MAT x10^3(ANC) 6.58 10*3/uL 1.99-6.95 (test code = 9614740601) IMM GRAN x10^3 (test 0.04 10*3/uL 0.00-0.06 code = 7041039395) LYMPH x10^3 (test code 1.09 10*3/uL 1.09-3.23 = 731-0) MONO x10^3 (test code 0.85 10*3/uL 0.36-1.02 = 742-7) EOS x10^3 (test code = 0.07 10*3/uL 0.06-0.53 711-2) BASO x10^3 (test code 0.05 10*3/uL 0.01-0.09 = 704-7) Lab Interpretation Abnormal (test code = 78730-0) [facility] METABOLIC PANEL (NA, K, CL, CO2, GLUCOSE, BUN, CREATININE, CA)2022-11-14 11:22:12 Test Item Value Reference Range Interpretation Comments NA (test code = 141 mmol/L 135-145 3102629802) K (test code = 3.9 mmol/L 3.5-5.0 8149206739) CL (test code = 108 mmol/L 98-108 2934650558) CO2 TOTAL (test code = 28 mmol/L 23-31 6985967679) AGAP (test code = 5 2-16 7436264006) BUN (test code = 4 mg/dL 7-23 L 3770205738) GLUCOSE (test code = 75 mg/dL 70-110 3398540895) CREATININE (test code = 0.48 mg/dL 0.60-1.25 L 3810188221) CALCIUM (test code = 7.2 mg/dL 8.6-10.6 L 5259184529) eGFR (test code = 183.0 mL/min/1.73m2 6406172736) BERYL (test code = BERYL) Association of [...] tests). Lab Interpretation Abnormal (test code = 40340-9) [facility]60160[facility] (ALB,T.PRO,BILI T,BU/BC,ALT,AST,ALK PHOS)2022-11-13 02:14:41 Test Item Value Reference Range Interpretation Comments TOTAL BILI (test code = 2510600494) 0.5 mg/dL 0.1-1.1 BILI UNCON (test code = 6882145969) 0.3 mg/dL 0.1-1.1 BILI CONJ (test code = 2297583870) 0.0 mg/dL 0.0-0.3 T PROTEIN (test code = 2371994694) 6.9 g/dL 6.3-8.2 ALBUMIN (test code = 7402158599) 3.9 g/dL 3.5-5.0 ALK PHOS (test code = 7182795374) 98 U/L 34-122 ALTv (test code = 1742-6) 17 U/L 5-50 AST(SGOT) (test code = 5295908637) 16 U/L 13-40 Lab Interpretation (test code = Normal 11884-9) [facility] 02:14:41 Test Item Value Reference Range Interpretation Comments LIPASE (test code = 3163356942) 824 U/L 0-220 H Lab Interpretation (test code = Abnormal 30718-8) [facility] (NA, K, CL, CO2, GLUCOSE, BUN, CREATININE, CA)2022-11-13 02:14:21 Test Item Value Reference Range Interpretation Comments NA (test code = 141 mmol/L 135-145 0736715081) K (test code = 3.4 mmol/L 3.5-5.0 L 1586467350) CL (test code = 104 mmol/L 98-108 8209702624) CO2 TOTAL (test code = 24 mmol/L 23-31 3733944439) AGAP (test code = 13 2-16 3084181962) BUN (test code = 5 mg/dL 7-23 L 7514834460) GLUCOSE (test code = 100 mg/dL 70-110 6964441077) CREATININE (test code = 0.54 mg/dL 0.60-1.25 L 7563201014) CALCIUM (test code = 8.7 mg/dL 8.6-10.6 9860530977) eGFR (test code = 159.8 mL/min/1.73m2 3496663436) BERYL (test code = BERYL) Association of [...] tests). Lab Interpretation Abnormal (test code = 31431-2) [facility] WITH [id number] 02:02:59 Test Item Value Reference Range Interpretation Comments WBC (test code = 7.83 See_Comment [Automated 2972-2) message] The sy stem which generated this result transmitted reference range : 4.20 - 10.70 10*3/?L. The reference range was not used to interpret this result as normal/abnormal . RBC (test code = 4.80 See_Comment [Automated 555-6) message] The sy stem which generated this [...] (test code = 52.8 fL 38.5-51.6 H 05695-5) RDW-CV (test code = 14.6 % 12.1-15.4 788-0) PLT (test code = 243 See_Comment [Automated 777-3) message] The sy stem which generated this result transmitted reference range : 150 - 328 10*3/ ?L. The reference r kevin was not used to interpret this result as normal/abnormal . MPV (test code = 10.1 fL 9.8-13.0 03996-2) NRBC/100 WBC (test 0.0 See_Comment [Automat ed code = 1391828256) message] The system which generated this result transmitted reference range : 0.0 - 10.0 /100 WBCs. The refer ence range was not u sed to interpret th is result as normal/abnormal . NRBC x10^3 (test code See_Comment [Auto mated = 9012424999) message] The s ystem which generated this result transmitted reference range : 10*3/?L. The reference range was not used to interpret this result as normal/abnormal . GRAN MAT (NEUT) % 72.2 % (test code = 770-8) IMM GRAN % (test code 0.90 % = 5451204798) LYMPH % (test code = 14.7 % 736-9) MONO % (test code = 10.0 % 5905-5) EOS % (test code = 1.4 % 713-8) BASO % (test code = 0.8 % 706-2) GRAN MAT x10^3(ANC) 5.66 10*3/uL 1.99-6.95 (test code = 0556213370) IMM GRAN x10^3 (test 0.07 10*3/uL 0.00-0.06 H code = 7651917510) LYMPH x10^3 (test code 1.15 10*3/uL 1.09-3.23 = 731-0) MONO x10^3 (test code 0.78 10*3/uL 0.36-1.02 = 742-7) EOS x10^3 (test code = 0.11 10*3/uL 0.06-0.53 711-2) BASO x10^3 (test code 0.06 10*3/uL 0.01-0.09 = 704-7) Lab Interpretation Abnormal (test code = 82459-9) [id number] 16:09:41 Test Item Value Reference Range Interpretation Comments TROPONIN I (test code = 0.013 ng/mL <=0.034 0248407253) BERYL (test code = BERYL) Reference (Normal) [...] biotin. Lab Interpretation Normal (test code = 32679-5) [facility] 22:48:51 ALCOHOL<10mg/dL11/04/2022 5:48 PM [facility]10 Mleumezd63-011 Toxic>100 Depression of [employer]>400 [facility]COMP[facility] METABOLIC PANEL (95856) 2022-11-04 18:25:59 Test Item Value Reference Range Interpretation Comments NA (test code = 135 mmol/L 135-145 7118715266) K (test code = 4.2 mmol/L 3.5-5.0 0400592449) CL (test code = 100 mmol/L 98-108 6389430714) CO2 TOTAL (test code = 26 mmol/L 23-31 2785356331) AGAP (test code = 9 2-16 1481931735) BUN (test code = 8 mg/dL 7-23 3952081375) GLUCOSE (test code = 126 mg/dL 70-110 H 8504232939) CREATININE (test code = 0.49 mg/dL 0.60-1.25 L 4773091326) TOTAL BILI (test code = 1.1 mg/dL 0.1-1.7 2526710502) CALCIUM (test code = 9.1 mg/dL 8.6-10.6 7975735805) T PROTEIN (test code = 7.6 g/dL 6.3-8.2 0417545648) ALBUMIN (test code = 4.1 g/dL 3.5-5.0 0549289463) ALK PHOS (test code = 113 U/L 34-122 5392926569) ALTv (test code = 21 U/L 5-50 1742-6) AST(SGOT) (test code = 41 U/L 13-40 H 8682308531) eGFR (test code = 178.7 mL/min/1.73m2 2945931402) BERYL (test code = BERYL) Association of [...] tests). Lab Interpretation Abnormal (test code = 10328-6) [facility] 18:25:18 Test Item Value Reference Range Interpretation Comments LIPASE (test code = 2734026201) 754 U/L 0-220 H Lab Interpretation (test code = Abnormal 25063-6) [facility] [id number] 18:11:59 Test Item Value Reference Range Interpretation Comments WBC (test code = 10.86 See_Comment H [Automated 6690-2) message] The sy stem which generated this result transmitted reference range : 4.20 - 10.70 10*3/?L. The reference range was not used to interpret this result as normal/abnormal . RBC (test code = 5.22 See_Comment [Automated 789-8) message] The sy stem [...] (test code = 52.0 fL 38.5-51.6 H 19316-2) RDW-CV (test code = 14.9 % 12.1-15.4 788-0) PLT (test code = 256 See_Comment [Automated 777-3) message] The sy stem which generated this result transmitted reference range : 150 - 328 10*3/ ?L. The reference r kevin was not used to interpret this result as normal/abnormal . MPV (test code = 9.4 fL 9.8-13.0 L 70295-6) NRBC/100 WBC (test 0.0 See_Comment [Automat ed code = 2781105403) message] The system which generated this result transmitted reference range : 0.0 - 10.0 /100 WBCs. The refer ence range was not u sed to interpret th is result as normal/abnormal . NRBC x10^3 (test code See_Comment [Auto mated = 0144103549) message] The s ystem which generated this result transmitted reference range : 10*3/?L. The reference range was not used to interpret this result as normal/abnormal . GRAN MAT (NEUT) % 83.0 % (test code = 770-8) IMM GRAN % (test code 0.70 % = 8775644832) LYMPH % (test code = 8.0 % 736-9) MONO % (test code = 7.6 % 5905-5) EOS % (test code = 0.3 % 713-8) BASO % (test code = 0.4 % 706-2) GRAN MAT x10^3(ANC) 9.01 10*3/uL 1.99-6.95 H (test code = 1049538834) IMM GRAN x10^3 (test 0.08 10*3/uL 0.00-0.06 H code = 9708888721) LYMPH x10^3 (test code 0.87 10*3/uL 1.09-3.23 L = 731-0) MONO x10^3 (test code 0.83 10*3/uL 0.36-1.02 = 742-7) EOS x10^3 (test code = 0.03 10*3/uL 0.06-0.53 L 711-2) BASO x10^3 (test code 0.04 10*3/uL 0.01-0.09 = 704-7) Lab Interpretation Abnormal (test code = 91193-9) [facility] WITH [id number] 22:44:37 Test Item Value Reference Range Interpretation [...] (test code = 53.2 fL 38.5-51.6 H 71825-2) RDW-CV (test code = 15.3 % 12.1-15.4 788-0) PLT (test code = 293 See_Comment [Automated 777-3) message] The sy stem which generated this result transmitted reference range : 150 - 328 10*3/ ?L. The reference r kevin was not used to interpret this result as normal/abnormal . MPV (test code = 9.4 fL 9.8-13.0 L 49562-2) NRBC/100 WBC (test 0.0 See_Comment [Automat ed code = 6558305791) message] The system which generated this result transmitted reference range : 0.0 - 10.0 /100 WBCs. The refer ence range was not u sed to interpret th is result as normal/abnormal . NRBC x10^3 (test code See_Comment [Auto mated = 0086519720) message] The s ystem which generated this result transmitted reference range : 10*3/?L. The reference range was not used to interpret this result as normal/abnormal . GRAN MAT (NEUT) % 70.5 % (test code = 770-8) IMM GRAN % (test code 1.40 % = 9797677258) LYMPH % (test code = 16.8 % 736-9) MONO % (test code = 9.1 % 5905-5) EOS % (test code = 1.6 % 713-8) BASO % (test code = 0.6 % 706-2) GRAN MAT x10^3(ANC) 7.63 10*3/uL 1.99-6.95 H (test code = 5158132704) IMM GRAN x10^3 (test 0.15 10*3/uL 0.00-0.06 H code = 8497872684) LYMPH x10^3 (test code 1.82 10*3/uL 1.09-3.23 = 731-0) MONO x10^3 (test code 0.99 10*3/uL 0.36-1.02 = 742-7) EOS x10^3 (test code = 0.17 10*3/uL 0.06-0.53 711-2) BASO x10^3 (test code 0.07 10*3/uL 0.01-0.09 = 704-7) Lab Interpretation Abnormal (test code = 17429-0) [facility] WITH [id number] 22:44:37 Test Item Value Reference Range Interpretation Comments WBC (test code = 10.83 See_Comment H [Automated 6690-2) message] The sy stem which generated this result transmitted reference range : 4.20 - 10.70 10*3/?L. The reference range was not used to interpret this result as normal/abnormal . RBC (test code = 5.03 See_Comment [Automated 469-8) message] The sy stem which generated this [...] (test code = 53.2 fL 38.5-51.6 H 93250-7) RDW-CV (test code = 15.3 % 12.1-15.4 788-0) PLT (test code = 293 See_Comment [Automated 777-3) message] The sy stem which generated this result transmitted reference range : 150 - 328 10*3/ ?L. The reference r kevin was not used to interpret this result as normal/abnormal . MPV (test code = 9.4 fL 9.8-13.0 L 85369-1) NRBC/100 WBC (test 0.0 See_Comment [Automat ed code = [id number]) message] The system which generated this result transmitted reference range : 0.0 - 10.0 /100 WBCs. The refer ence range was not u sed to interpret th is result as normal/abnormal . NRBC x10^3 (test code See_Comment [Auto mated = [id number]) message] The s ystem which generated this result transmitted reference range : 10*3/?L. The reference range was not used to interpret this result as normal/abnormal . GRAN MAT (NEUT) % 70.5 % (test code = 770-8) IMM GRAN % (test code 1.40 % = [id number]) LYMPH % (test code = 16.8 % 736-9) MONO % (test code = 9.1 % 5905-5) EOS % (test code = 1.6 % 713-8) BASO % (test code = 0.6 % 706-2) GRAN MAT x10^3(ANC) 7.63 10*3/uL 1.99-6.95 H (test code = [id number]) IMM GRAN x10^3 (test 0.15 10*3/uL 0.00-0.06 H code = [id number]) LYMPH x10^3 (test code 1.82 10*3/uL 1.09-3.23 = 731-0) MONO x10^3 (test code 0.99 10*3/uL 0.36-1.02 = 742-7) EOS x10^3 (test code = 0.17 10*3/uL 0.06-0.53 711-2) BASO x10^3 (test code 0.07 10*3/uL 0.01-0.09 = 704-7) Lab Interpretation Abnormal (test code = 11909-5) [facility] Test Item Value Reference Range Interpretation Comments CREATININE (BEAKER) 0.63 mg/dL 0.57-1.25 (test code = 358) EGFR (BEAKER) (test 136 mL/min/1.73 ESTIM ATED GFR IS code = 1092) sq m NOT ACCURATE CREATININE CLEARANCE IN PREDICTING GLOMERULAR FILTRATION RATE . ESTIMATED GFR I S NOT APPLICABLE FOR DIALYSIS PATIEN TS. WOUND CULTURE + GRAM [id number] 16:32:00 Test Item Value Reference Range Interpretation Comments CULTURE (BEAKER) (test No growth code = 1095) GRAM STAIN RESULT 2+ WBCs (BEAKER) (test code = 1123) GRAM STAIN RESULT 1+ gram positive cocci (BEAKER) (test code = in pairs 46853) GRAM STAIN RESULT <1+ gram variable rods (BEAKER) (test code = 17961) VANCOMYCIN LEVEL, [id number] 23:37:00 Test Item Value Reference Range Interpretation Comments VANCOMYCIN TROUGH (BEAKER) (test 7.5 ug/mL 10.0-20.0 L code = 522) FL, ESOPH, SWALLOW FUNCTION, WITH CINE OR [id number] 18:19:00Cervical esophagram with GASTROGAFFINReason for exam:->status post [...] MDReport Verified Date/Time: 08/12/2018 18:19:29 Reading Location: [facility] [address] [place] [address] Consult Reading Room CBC W/PLT COUNT & AUTO [id number] 04:39:00 Test Item Value Reference Range Interpretation [...] (test code = 2801) TSH/FREE T4 IF [id number] 18:11:00 Test Item Value Reference Range Interpretation Comments THYROID STIMULATING HORMONE 0.75 uIU/mL 0.35-4.94 (BEAKER) (test code = 772) CBC W/PLT COUNT & AUTO [id number] 17:31:00 Test Item Value Reference Range Interpretation [...] PERCENT (BEAKER) (test code = 2801) TISSUE [id number] 10:26:00Surgical Pathology Report Case: [id number] Authorizing Provider: Jennifer Fraire MD Collected: 07/14/2018 1023 Ordering Location: [facility] PERIOPERATIVE Received: 07/14/2018 1029 SERVICES [...] NODES (0/2) Signing Pathologist Direct Phone Line: [phone] signed by Jackie Hardy MD on 07/25/2018 [...] carcinoma Accessory Findings: Lymphovascular Invasion: Not identified PerineuralInvasion: Not identified MARGINS Margins: Uninvolved by invasive [...] 8th Edition) TNM Descriptors: y (post-treatment) : PrimaryTumor (pT): Primary tumor cannot be assessed Regional Lymph Nodes (pN): pN0 Distant Metastasis (pM):Not applicable - pM cannot be determined from the submitted specimen(s) 40321 X3, 81631, 24496, 18306 X2, 89157 X 4, 82222 x1, 00817 [id number] 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 Float Builder sections are submitted as follows: C6 [...] shows ulcer and granulation tissue. On C19, Glide-8 positivity confirms portionof thyroid tissue present. On [...] stains. Immunohistochemistry technical testing was performed at [facility], Pathology Laboratory where it was developed [...] clinical laboratory testing.CBC W/PLT COUNT & AUTO [id number] 09:34:00 Test Item Value Reference Range Interpretation [...] = 3438) Received comment: User comments: Slide comments:[id number] 05:40:00 Test Item Value Reference Range Interpretation Comments PHOSPHORUS (BEAKER) (test code = 4.8 mg/dL 2.3-4.7 H 604) [id number] 05:40:00 Test Item Value Reference Range Interpretation Comments MAGNESIUM (BEAKER) (test code = 2.1 mg/dL 1.6-2.6 627) BASIC METABOLIC [id number] 05:40:00 Test Item Value Reference Range Interpretation [...] PATIEN TS. CBC W/PLT COUNT & AUTO [id number] 11:50:00 Test Item Value Reference Range Interpretation [...] 0-5 epithelial cells (BEAKER) (test code = 66614) GRAM STAIN RESULT No organisms seen (BEAKER) (test code = 12402) [id number] 06:07:00 Test Item Value Reference Range Interpretation Comments PHOSPHORUS (BEAKER) (test code = 4.6 mg/dL 2.3-4.7 604) [id number] 06:07:00 Test Item Value Reference Range Interpretation Comments MAGNESIUM (BEAKER) (test code = 2.0 mg/dL 1.6-2.6 627) BASIC METABOLIC [id number] 06:07:00 Test Item Value Reference Range Interpretation [...] APPLICABLE FOR DIALYSIS PATIEN TS. VANCOMYCIN LEVEL, [id number] 23:12:00 Test Item Value Reference Range Interpretation Comments VANCOMYCIN TROUGH (BEAKER) (test 3.2 ug/mL 10.0-20.0 L code = 522) POCT-GLUCOSE [id number] 17:57:00 Test Item Value Reference Range Interpretation Comments POC-GLUCOSE METER 105 mg/dL 70-110 TESTED AT [facility] [address] ([facility]) (test code = [place] 1538) [address] CBC W/PLT COUNT & AUTO [id number] 13:00:00 Test Item Value Reference Range Interpretation [...] 3438) Received comment: User comments: Slide comments:POCT-GLUCOSE [id number] 12:50:00 Test Item Value Reference Range Interpretation Comments POC-GLUCOSE METER 117 mg/dL 70-110 H TESTED AT [facility] [address] (BEAKER) (test code = AL[place] 1538) [address] [id number] 07:00:00 Test Item Value Reference Range Interpretation Comments PHOSPHORUS (BEAKER) (test code = 4.2 mg/dL 2.3-4.7 604) [id number] 07:00:00 Test Item Value Reference Range Interpretation Comments MAGNESIUM (BEAKER) (test code = 1.9 mg/dL 1.6-2.6 627) BASIC METABOLIC [id number] 07:00:00 Test Item Value Reference Range Interpretation [...] PATIEN TS. CBC W/PLT COUNT & AUTO [id number] 10:11:00 Test Item Value Reference Range Interpretation [...] = 3438) Received comment: User comments: Slide comments:[id number] 05:39:00 Test Item Value Reference Range Interpretation Comments PHOSPHORUS (BEAKER) (test code = 5.1 mg/dL 2.3-4.7 H 604) [id number] 05:39:00 Test Item Value Reference Range Interpretation Comments MAGNESIUM (BEAKER) (test code = 2.0 mg/dL 1.6-2.6 627) BASIC METABOLIC [id number] 05:39:00 Test Item Value Reference Range Interpretation [...] APPLICABLE FOR DIALYSIS PATIEN TS. VANCOMYCIN LEVEL, [id number] 23:38:00 Test Item Value Reference Range Interpretation Comments VANCOMYCIN TROUGH (BEAKER) (test 5.5 ug/mL 10.0-20.0 L code = 522) CBC W/PLT COUNT & AUTO [id number] 10:44:00 Test Item Value Reference Range Interpretation [...] = 3438) Received comment: User comments: Slide comments:[id number] 06:44:00 Test Item Value Reference Range Interpretation Comments MAGNESIUM (BEAKER) 2.1 mg/dL 1.6-2.6 Specimen slightly (test code = 627) hemolyzed [id number] 06:44:00 Test Item Value Reference Range Interpretation Comments PHOSPHORUS (BEAKER) 5.0 mg/dL 2.3-4.7 H Specimen slightly (test code = 604) hemolyzed BASIC METABOLIC [id number] 06:44:00 Test Item Value Reference Range Interpretation [...] S NOT APPLICABLE FOR DIALYSIS PATIEN TS. [id number] 06:06:00 Test Item Value Reference Range Interpretation [...] with mechanical heart valves.SPUTUM CULTURE + GRAM [id number] 14:44:00 Test Item Value Reference Range Interpretation Comments CULTURE (BEAKER) Oropharyngeal (test code = 1095) contamination, specimen rejected. Recollect requested. GRAM STAIN RESULT <1+ WBCs (BEAKER) (test code = 1123) GRAM STAIN RESULT >25 epithelial cells (BEAKER) (test code = 71650) GRAM STAIN RESULT <1+ gram positive rods (BEAKER) (test code = 54791) RAD, CHEST, 1 VIEW, NON [id number] 13:59:00Reason for exam:->leukocytosis in setting of recent laryngectomyShould [facility]?->YesFINAL REPORT INDICATION: leukocytosis in setting of recent laryngectomy COMPARISON:July 17 TECHNIQUE: Chest radiograph, single view, portable technique. FINDINGS / IMPRESSION: No pneumonia is demonstrated. Right base linear opacities represent subsegmental atelectasis. Tracheostomy tube and left low neck dissection noted. No pneumomediastinum or pneumothorax demonstrated. Cardiac and mediastinal contours unremarkable. Signed: Saray Gaviria MDReport Verified Date/Time: 07/19/2018 13:59:21 Reading Location: [address] Consult Reading Room URINALYSIS W/ REFLEX URINE [id number] 11:14:00 Test Item Value Reference Range Interpretation [...] code = 514) SOURCE(BEAKER) (test code = 0385) POCT-GLUCOSE [id number] 06:46:00 Test Item Value Reference Range Interpretation Comments POC-GLUCOSE METER 102 mg/dL 70-110 TESTED AT [facility] [address] (BEAKER) (test code = ALI[place] Ru[place] 1538) [address] [id number] 04:52:00 Test Item Value Reference Range Interpretation Comments PHOSPHORUS (BEAKER) (test code = 4.1 mg/dL 2.3-4.7 604) [id number] 04:52:00 Test Item Value Reference Range Interpretation Comments MAGNESIUM (BEAKER) (test code = 1.8 mg/dL 1.6-2.6 627) BASIC METABOLIC [id number] 04:52:00 Test Item Value Reference Range Interpretation [...] PATIEN TS. CBC W/PLT COUNT & AUTO [id number] 04:25:00 Test Item Value Reference Range Interpretation [...] 0-1 H PERCENT (BEAKER) (test code = 0961) [id number] 04:11:00 Test Item Value Reference Range Interpretation Comments PROTIME ([facility]) (test code = 15.8 seconds 11.7-14.7 H 759) INR ([facility]) (test code = 370) 1.2 <=5.9 PARTIAL THROMBOPLASTIN TIME 48.2 seconds 22.5-36.0 H ([facility]) (test code = 760) RECOMMENDED COUMADIN/WARFARIN INR THERAPY RANGESSTANDARD DOSE: 2.0 - 3.0 Includes: PROPHYLAXIS for venous thrombosis, systemic embolization; TREATMENT for venous thrombosis and/or pulmonary embolus.HIGH RISK: Target INR is 2.5-3.5 for patients with mechanical heart valves.POCT-GLUCOSE [id number] 00:11:00 Test Item Value Reference Range Interpretation Comments POC-GLUCOSE METER 76 mg/dL 70-110 TESTED AT [place] [address] ([facility]) (test code = [facility] [address] 1538) POCT-GLUCOSE [id number] 17:53:00 Test Item Value Reference Range Interpretation Comments POC-GLUCOSE METER 94 mg/dL 70-110 TESTED AT [place] [address] ([facility]) (test code = [facility] [address] 1538) T4, [id number] 11:41:00 Test Item Value Reference Range Interpretation Comments FREE T4 ([facility]) (test code = 655) 0.90 ng/dL 0.70-1.48 POCT-GLUCOSE [id number] 11:35:00 Test Item Value Reference Range Interpretation Comments POC-GLUCOSE METER 103 mg/dL 70-110 TESTED AT [place] [address] ([facility]) (test code = [facility] 1538) [address] TSH/FREE T4 IF [id number] 10:50:00 Test Item Value Reference Range Interpretation Comments THYROID STIMULATING HORMONE 14.67 uIU/mL 0.35-4.94 H ([facility]) (test code = 772) POCT-GLUCOSE [id number] 06:42:00 Test Item Value Reference Range Interpretation Comments POC-GLUCOSE METER 111 mg/dL 70-110 H TESTED AT [place] [address] ([facility]) (test code = [facility] 1538) [address] CBC W/PLT COUNT & AUTO [id number] 05:20:00 Test Item Value Reference Range Interpretation [...] H PERCENT (BEAKER) (test code = 2801) [id number] 05:00:00 Test Item Value Reference Range Interpretation Comments PHOSPHORUS (BEAKER) (test code = 5.2 mg/dL 2.3-4.7 H 604) [id number] 05:00:00 Test Item Value Reference Range Interpretation Comments MAGNESIUM (BEAKER) (test code = 2.0 mg/dL 1.6-2.6 627) BASIC METABOLIC [id number] 05:00:00 Test Item Value Reference Range Interpretation [...] S NOT APPLICABLE FOR DIALYSIS PATIEN TS. [id number] 04:55:00 Test Item Value Reference Range Interpretation [...] mechanical heart valves.CBC W/PLT COUNT & AUTO [id number] 08:47:00 Test Item Value Reference Range Interpretation [...] 3438) Received comment: User comments: Slide comments:POCT-GLUCOSE [id number] 06:41:00 Test Item Value Reference Range Interpretation Comments POC-GLUCOSE METER 115 mg/dL 70-110 H TESTED AT [facility] [address] (BEAKER) (test code = [place] 1538) [address] BASIC METABOLIC [id number] 04:53:00 Test Item Value Reference Range Interpretation [...] S NOT APPLICABLE FOR DIALYSIS PATIEN TS. [id number] 04:37:00 Test Item Value Reference Range Interpretation Comments PHOSPHORUS (BEAKER) (test code = 3.9 mg/dL 2.3-4.7 604) [id number] 04:37:00 Test Item Value Reference Range Interpretation Comments MAGNESIUM (BEAKER) (test code = 1.6 mg/dL 1.6-2.6 627) [id number] 04:37:00 Test Item Value Reference Range Interpretation Comments ALBUMIN (BEAKER) (test code = 1145) 3.2 g/dL 3.5-5.0 L [id number] 04:24:00 Test Item Value Reference Range Interpretation [...] mechanical heart valves.RAD, CHEST, 1 VIEW, NON [id number] 03:56:00Reason for exam:->atelectasisShould this be performed at the bedside?->YesFINAL REPORT CLINICAL INDICATION: Support lines. Comparison: 07/16/2018 The cardiomediastinal contours are stable. The lung volumes remain low. Bibasilar parenchymal and pleural opacities are similar to previous. There is no pneumothorax. A tracheostomy tube is stable in position. A pigtail catheter overlies the left upper quadrant, probably a G-tube. Signed: Mayra Garcia Verified Date/Time: 07/17/2018 03:56:49 Reading Location: [address] Reading Room POCT-GLUCOSE [id number] 00:56:00 Test Item Value Reference Range Interpretation Comments POC-GLUCOSE METER 115 mg/dL 70-110 H TESTED AT [facility] [address] ([facility]) (test code = ALIYA Ruiz [place] 1538) [address] POCT-GLUCOSE [id number] 18:10:00 Test Item Value Reference Range Interpretation Comments POC-GLUCOSE METER 116 mg/dL 70-110 H TESTED AT [place] [address] ([facility]) (test code = ALIYA Ruiz [place] 1538) [address] POCT-GLUCOSE [id number] 13:10:00 Test Item Value Reference Range Interpretation Comments POC-GLUCOSE METER 115 mg/dL 70-110 H TESTED AT [facility] [address] ([facility]) (test code = ALIYA Ruiz [place] 1538) [address] RAD, CHEST, 1 VIEW, NON [id number] 08:20:00Reason for exam:- >atelectasisShould this be performed [...] IMPRESSION: No significant change. Signed: Josias Beltran Verified Date/Time: 07/16/2018 08:20:57 Reading Location: [facility] C[address]X [facility] Reading Room TROPONIN [id number] 08:03:00 Test Item Value Reference Range Interpretation [...] acute neurological disease, and persistent tachyarrhythmia.BLOOD GAS, [id number] 07:42:00 Test Item Value Reference Range Interpretation [...] (test code = 1819) 44.0 % POCT-GLUCOSE [id number] 06:03:00 Test Item Value Reference Range Interpretation Comments POC-GLUCOSE METER 120 mg/dL 70-110 H TESTED AT [facility] 67[address] (BEAKER) (test code = [place] 1538) [address] CBC W/PLT COUNT & AUTO [id number] 04:00:00 Test Item Value Reference Range Interpretation [...] % 0-1 PERCENT (BEAKER) (test code = 2800) [id number] 03:38:00 Test Item Value Reference Range Interpretation Comments MAGNESIUM (BEAKER) 2.0 mg/dL 1.6-2.6 Specimen slightly (test code = 627) hemolyzed [id number] 03:38:00 Test Item Value Reference Range Interpretation Comments PHOSPHORUS (BEAKER) 3.6 mg/dL 2.3-4.7 Specimen slightly (test code = 604) hemolyzed BASIC METABOLIC [id number] 03:38:00 Test Item Value Reference Range Interpretation [...] S NOT APPLICABLE FOR DIALYSIS PATIEN TS. [id number] 03:38:00 Test Item Value Reference Range Interpretation Comments ALBUMIN (BEAKER) (test 3.9 g/dL 3.5-5.0 Speci men slightly code = 1145) hemolyzed [id number] 03:31:00 Test Item Value Reference Range Interpretation [...] 2.5-3.5 for patients with mechanical heart valves.POCT-GLUCOSE [id number] 23:39:00 Test Item Value Reference Range Interpretation Comments POC-GLUCOSE METER 121 mg/dL 70-110 H TESTED AT [place] [address] ([facility]) (test code = ALIYA Ruiz [place] 1538) [address] POCT-GLUCOSE [id number] 18:25:00 Test Item Value Reference Range Interpretation Comments POC-GLUCOSE METER 112 mg/dL 70-110 H TESTED AT [place] [address] ([facility]) (test code = ALIYA Ruiz [place] 1538) [address] T4, [id number] 12:56:00 Test Item Value Reference Range Interpretation Comments FREE T4 ([facility]) (test code = 655) 1.17 ng/dL 0.70-1.48 POCT-GLUCOSE [id number] 11:35:00 Test Item Value Reference Range Interpretation Comments POC-GLUCOSE METER 143 mg/dL 70-110 H TESTED AT [place] [address] ([facility]) (test code = ALIYA Ruiz [facility] 1538) [address] CBC W/PLT COUNT & AUTO [id number] 07:50:00 Test Item Value Reference Range Interpretation [...] contours. Additional findings: None. Signed: Maylin Wiggins Verified Date/Time: 07/15/2018 05:48:22 Reading Location: [address] Neuro Reading Room POCT-GLUCOSE METER 2018-07-15 05:47:00 Test Item Value Reference Range Interpretation Comments POC-GLUCOSE METER 177 mg/dL 70-110 H TESTED AT [facility] [address] (BEAKER) (test code = [place] 1538) [address] [id number] 04:29:00 Test Item Value Reference Range Interpretation Comments PHOSPHORUS (BEAKER) (test code = 2.3 mg/dL 2.3-4.7 604) [id number] 04:29:00 Test Item Value Reference Range Interpretation Comments MAGNESIUM (BEAKER) (test code = 1.7 mg/dL 1.6-2.6 627) BASIC METABOLIC [id number] 04:29:00 Test Item Value Reference Range Interpretation [...] S NOT APPLICABLE FOR DIALYSIS PATIEN TS. [id number] 04:29:00 Test Item Value Reference Range Interpretation Comments ALBUMIN (BEAKER) (test code = 1145) 3.8 g/dL 3.5-5.0 [id number] 04:22:00 Test Item Value Reference Range Interpretation [...] 2.5-3.5 for patients with mechanical heart valves.POCT-GLUCOSE [id number] 23:55:00 Test Item Value Reference Range Interpretation Comments POC-GLUCOSE METER 159 mg/dL 70-110 H TESTED AT [facility] [address] ([facility]) (test code = [place] 1538) [address] [id number] 19:41:00 Test Item Value Reference Range Interpretation Comments THYROID STIMULATING HORMONE 6.82 uIU/mL 0.35-4.94 H (BEAKER) (test code = 772) [id number] 19:26:00 Test Item Value Reference Range Interpretation Comments PHOSPHORUS (BEAKER) (test code = 4.9 mg/dL 2.3-4.7 H 604) Postop labsPostop labsPostop labsPostop [id number] 19:26:00 Test Item Value Reference Range Interpretation Comments MAGNESIUM (BEAKER) (test code = 1.9 mg/dL 1.6-2.6 627) Postop labsPostop labsPostop labsPostop labsBASIC METABOLIC [id number] 19:26:00 Test Item Value Reference Range Interpretation [...] DIALYSIS PATIEN TS. Postop labsPostop labsPostop labsPostop [id number] 19:26:00 Test Item Value Reference Range Interpretation Comments ALBUMIN (BEAKER) (test code = 1145) 3.9 g/dL 3.5-5.0 Postop labsPostop labsPostop labsPostop [id number] 19:24:00 Test Item Value Reference Range Interpretation Comments PREALBUMIN (BEAKER) 17 mg/dL 14-45 Specimen slightly (test code = 586) hemolyzed PTH, [id number] 19:23:00 Test Item Value Reference Range Interpretation Comments PARATHYROID HORMONE INTACT 16.1 pg/mL 8.5-72.5 (BEAKER) (test code = 577) Postop LabsCBC W/PLT COUNT & AUTO [id number] 18:58:00 Test Item Value Reference Range Interpretation [...] (BEAKER) (test code = 2801) BLOOD GAS, [id number] 15:31:00 Test Item Value Reference Range Interpretation [...] 1819) 100.0 % HGB/HCT (H&H) - STAT [id number] 15:31:00 Test Item Value Reference Range Interpretation Comments HEMOGLOBIN (BEAKER) (test code = 11.0 g/dL 13.0-16.8 L 410) HEMATOCRIT (BEAKER) (test code = 32.0 % 40.0-50.0 L 411) GLUCOSE-STAT [id number] 15:30:00 Test Item Value Reference Range Interpretation Comments GLUCOSE RANDOM (BEAKER) (test code = 87 mg/dL 70-110 652) SODIUM NA-STAT [id number] 15:30:00 Test Item Value Reference Range Interpretation Comments SODIUM (BEAKER) (test code = 381) 137 meq/L 135-148 POTASSIUM-STAT [id number] 15:30:00 Test Item Value Reference Range Interpretation Comments POTASSIUM (BEAKER) (test code = 4.0 meq/L 3.6-5.5 379) ANG, INSERTION G TUBE, W/ [id number] 14:18:00Reason for exam:- >Gastrostomy tubeFINAL REPORT Fluoroscopic guided gastrostomy tube placement, 07/11/2018. Clinical History: Laryngeal cancer. Modality: Fluoroscopy. Process Project Engineer: Jack Lima MD. Automation Machine Builder:Dilip Vivas MD. Conscious sedation: 2.0 mg Versed, [...] After the tract was dilated, a 14 [place] catheterwas placed into the stomach. The wire [...] MDReport Verified Date/Time: 07/11/2018 14:18:50 Reading Location: [place] [address] Angio Body Reading Room TSH/FREE T4 IF [id number] 13:24:00 Test Item Value Reference Range Interpretation Comments THYROID STIMULATING HORMONE 2.37 uIU/mL 0.35-4.94 (BEAKER) (test code = 772) RAD, CHEST, PA OR AP, 1 [id number] 11:03:00Reason for exam:->coughShould this be performed at the bedside?->NoFINAL REPORT AP chest HISTORY: Cough. COMPARISON: 06/17/2018. IMPRESSION: Tracheostomy tube present. Heart size normal. Lungs clear without effusion or pneumothorax. Intact skeleton. Signed: Ashok Whitaker MDReport Verified Date/Time: 07/10/2018 11:03:24 Reading Location: [address] Radiology Reading Room COMPREHENSIVE METABOLIC [id number] 10:52:00 Test Item Value Reference Range Interpretation [...] PATIEN TS. CBC W/PLT COUNT & AUTO [id number] 10:32:00 Test Item Value Reference Range Interpretation [...] H PERCENT (BEAKER) (test code = 2801) [id number] 10:30:00 Test Item Value Reference Range Interpretation [...] 2.5-3.5 for patients with mechanical heart valves.BLOOD [id number] 20:01:00 Test Item Value Reference Range Interpretation Comments CULTURE (BEAKER) (test No growth in 5 days code = 1095) BLOOD [id number] 20:01:00 Test Item Value Reference Range Interpretation Comments CULTURE (BEAKER) (test No growth in 5 days code = 1095) CBC W/PLT COUNT & AUTO [id number] 12:54:00 Test Item Value Reference Range Interpretation [...] Received comment: User comments: Slide comments:BASIC METABOLIC [id number] 06:44:00 Test Item Value Reference Range Interpretation [...] NOT APPLICABLE FOR DIALYSIS PATIEN TS. BLOOD [id number] 12:01:00 Test Item Value Reference Range Interpretation Comments CULTURE (BEAKER) (test No growth in 5 days code = 1095) CBC W/PLT COUNT & AUTO [id number] 11:06:00 Test Item Value Reference Range Interpretation [...] Received comment: User comments: Slide comments:BASIC METABOLIC [id number] 08:11:00 Test Item Value Reference Range Interpretation [...] NOT APPLICABLE FOR DIALYSIS PATIEN TS. BLOOD [id number] 08:01:00 Test Item Value Reference Range Interpretation Comments CULTURE (BEAKER) (test No growth in 5 days code = 1095) BLOOD [id number] 02:00:00 Test Item Value Reference Range Interpretation Comments CULTURE (BEAKER) (test No growth in 5 days code = 1095) BLOOD [id number] 02:00:00 Test Item Value Reference Range Interpretation Comments CULTURE (BEAKER) (test No growth in 5 days code = 1095) CBC W/PLT COUNT & AUTO [id number] 15:32:00 Test Item Value Reference Range Interpretation [...] Received comment: User comments: Slide comments:BASIC METABOLIC [id number] 07:38:00 Test Item Value Reference Range Interpretation [...] PATIEN TS. CBC W/PLT COUNT & AUTO [id number] 12:37:00 Test Item Value Reference Range Interpretation [...] Received comment: User comments: Slide comments:BASIC METABOLIC [id number] 12:04:00 Test Item Value Reference Range Interpretation [...] APPLICABLE FOR DIALYSIS PATIEN TS. VANCOMYCIN LEVEL, [id number] 12:02:00 Test Item Value Reference Range Interpretation Comments VANCOMYCIN RANDOM (BEAKER) (test 1.3 ug/mL code = 523) Reference Range: No [id number] 12:00:00 Test Item Value Reference Range Interpretation Comments MAGNESIUM (BEAKER) (test code = 2.2 mg/dL 1.6-2.6 627) SPUTUM CULTURE + GRAM [id number] 11:45:00 Test Item Value Reference Range Interpretation [...] 15-20 epithelial (BEAKER) (test code cells = 585589) GRAM STAIN RESULT <1+ gram negative (BEAKER) (test code coccobacilli = 164081) GRAM STAIN RESULT <1+ gram positive (BEAKER) (test code cocci in pairs = 176276) GRAM STAIN RESULT <1+ yeast with (BEAKER) (test code pseudohyphae = 491131) GRAM STAIN RESULT 1+ gram variable (BEAKER) (test code rods = 161422) 1+ Normal [facility]O DIFFERENTIAL 2018-06-17 [...] H PERCENT (BEAKER) (test code = 2801) [id number] 14:37:00 Test Item Value Reference Range Interpretation Comments PROCALCITONIN (BEAKER) (test code 0.08 ng/mL <0.05 H = 3036) SEPSIS RISK (ng/mL)Low: 0.05-0.50Intermediate: 0.51-2.00High: >=2.01LACTIC ACID, [id number] 13:43:00 Test Item Value Reference Range Interpretation Comments LACTATE BLOOD VENOUS 2.4 mmol/L 0.5-2.2 H Specime n slightly (2) (BEAKER) (test hemolyzed code = 2872) TISSUE [id number] 13:24:00Surgical Pathology Report Case: [id number] Authorizing Provider: Jennifer Fraire MD Collected: 06/09/2018 1735 Ordering Location: [address] Received: 06/10/2018 0811 Cardiovascular Pathologist: Jennifer Hull MD Specimen: Soft Tissue, Other, LEFT SUPRAGLOTTIC MASS LEFT SUPRAGLOTTIC MASS, LARYNGOSCOPIC BIOPSY: - ATYPICAL SQUAMOUS PROLIFERATION (SEE COMMENT) Signing Pathologist Direct Phone Line: [phone] signed by Jennifer Hull MD on 06/17/2018 [...] is seen. The biopsy may not be novelties sales representative of the entirelesion; Clinical correlation is recommended.58494; 78805;49773Sxuvjgjsk mass Left subglottic massThe specimen is received in a fluidless container labeled with patient information and labeled "left supraglottic mass" consisting of four fragments of red soft tissue ranging from 0.1 to 0.4 cm, submitted entirely A1. CG/pl PERFORMEDThe interpretation of this case included the use of immunohistochemistry or special stains. p53 and AE1/AB1Sabvssdnzhmqvoxghypf te chnical testing was performed at [facility], Pathology Laboratory where it wasdeveloped and its performance characteristics were determined. It [...] testing.FL, ESOPH, SWALLOW FUNCTION, WITH CINE OR [id number] 12:08:00Reason for exam:->silent aspiration evaluationFINAL REPORT Modified [...] MDReport Verified Date/Time: 06/17/2018 12:08:38 Reading Location: [address] OrthoConsult Reading Room [id number] 09:44:00 Test Item Value Reference Range Interpretation Comments MAGNESIUM (BEAKER) (test code = 1.9 mg/dL 1.6-2.6 627) [id number] 09:44:00 Test Item Value Reference Range Interpretation Comments PHOSPHORUS (BEAKER) (test code = 2.9 mg/dL 2.3-4.7 604) RAD, CHEST, 1 VIEW, NON [id number] 08:16:00Reason for exam:->SOBShould this be performed at [...] MDReport Verified Date/Time: 06/17/2018 08:16:46 Reading Location: [facility] Radiology Reading Room BASIC METABOLIC [id number] 06:25:00 Test Item Value Reference Range Interpretation [...] APPLICABLE FOR DIALYSIS PATIEN TS. VANCOMYCIN LEVEL, [id number] 06:25:00 Test Item Value Reference Range Interpretation Comments VANCOMYCIN RANDOM (BEAKER) (test 9.6 ug/mL code = 523) Reference Range: No NormalsDraw 30 min prior to scheduled dose, HOLD if level > 20 mcg/mL, informMD.RESPIRATORY PANEL [id number] 12:23:00 Test Item Value Reference Range Interpretation Comments HUMAN METAPNEUMOVIRUS Not detected Not detected, (BEAKER) (test code = Equivocal 1473) RHINOVIRUS (BEAKER) Not detected Not detected, (test code = 2993) Equivocal INFLUENZA A (BEAKER) Not detected Not detected, (test code = 6069) Equivocal INFLUENZA A (NO SUBTYPE) Not detected, [...] decisions. This sample was tested at the [facility] Molecular Diagnostics Laboratory using the M3X MediaArray Respiratory Panel. It is FDA cleared and has been verified and approved by the [facility] for clinical use on nasal swab specimens. It is not FDA-cleared for use on bronchial wash/lavage samples. However, for this sample type, validation was performed and test characteristics were determined and approved, by [facility] for clinical use under the Clinical Laboratory Improvement Amendments (CLIA) of 1988 requirements. Therefore, FDA clearance isnot required. This laboratory is CLIA- certified and [employer] (CAP)-accredited to perform high complexity testing.CBC W/PLT COUNT & AUTO [id number] 11:27:00 Test Item Value Reference Range Interpretation [...] comments:CT, CHEST WITH IV CONTRAST- PE TEST [id number] 09:53:00Worsening hypoxia s/o diagnosis and excision of [...] dependent portions of the right middle lobe andleft upper lobe. No significant findings in the [...] [place]ung[place] Verified Date/Time: 06/16/2018 09:53:01 Reading Location: [facility] Diagnostic Imaging Reading Room - [place] [address] RAD, CHEST, 1 VIEW, NON [id number] 07:36:00Reason for exam:->recent pneumothorax, new trachShould this [...] Morales Verified Date/Time: 06/16/2018 07:36:27 Reading Location: [facility] Radiology Reading Room BASIC METABOLIC [id number] 05:45:00 Test Item Value Reference Range Interpretation [...] S NOT APPLICABLE FOR DIALYSIS PATIEN TS. [id number] 18:12:00 Test Item Value Reference Range Interpretation Comments MAGNESIUM (BEAKER) 2.0 mg/dL 1.6-2.6 Specimen slightly (test code = 627) hemolyzed BASIC METABOLIC [id number] 18:12:00 Test Item Value Reference Range Interpretation [...] PATIEN TS. RAD, CHEST, 1 VIEW, NON [id number] 13:18:00Reason for exam:->recent pneumothorax, new trachShould this [...] MDReport Verified Date/Time: 06/15/2018 13:18:45 Reading Location: [address] Neuro Reading Room BLOOD GAS, [id number] 11:41:00 Test Item Value Reference Range Interpretation [...] hour post initaition of vent support \\R\\1015TROPONIN [id number] 09:49:00 Test Item Value Reference Range Interpretation [...] 66 pg/mL 0-100 (test code = 700) [id number] 09:29:00 Test Item Value Reference Range Interpretation [...] exclusion of thrombosis is within 95-100% range. [id number] 09:12:00 Test Item Value Reference Range Interpretation Comments FIBRINOGEN LEVEL (BEAKER) (test 621 mg/dl 225-434 H code = 658) [id number] 09:10:00 Test Item Value Reference Range Interpretation Comments PHOSPHORUS (BEAKER) (test code = 2.8 mg/dL 2.3-4.7 604) [id number] 09:10:00 Test Item Value Reference Range Interpretation Comments MAGNESIUM (BEAKER) (test code = 1.9 mg/dL 1.6-2.6 627) COMPREHENSIVE METABOLIC [id number] 09:10:00 Test Item Value Reference Range Interpretation [...] S NOT APPLICABLE FOR DIALYSIS PATIEN TS. [id number] 09:01:00 Test Item Value Reference Range Interpretation [...] for patients with mechanical heart valves.LACTIC ACID, [id number] 08:51:00 Test Item Value Reference Range Interpretation Comments LACTATE BLOOD 0.8 mmol/L 0.5-2.2 Specimen sligh tly ARTERIAL (2) (BEAKER) hemoly zed (test code = 2874) BLOOD GAS, [id number] 08:40:00 Test Item Value Reference Range Interpretation [...] (BEAKER) (test code = 1819) 80.0 % [id number] 08:00:00 Test Item Value Reference Range Interpretation Comments MAGNESIUM (BEAKER) (test code = 1.8 mg/dL 1.6-2.6 627) Add onCBC W/PLT COUNT & AUTO [id number] 06:45:00 Test Item Value Reference Range Interpretation [...] (BEAKER) (test code = 2801) BASIC METABOLIC [id number] 06:35:00 Test Item Value Reference Range Interpretation [...] PATIEN TS. RAD, CHEST, 1 VIEW, NON [id number] 05:10:00Reason for exam:->sob, tachypneaShould this be performed [...] None. Signed: Ivanna Carrillo MDReport Verified Date/Time: 06/15/2018 05:10:33 Reading Location: [address] Transitional Reading Room POCT-LACTIC ACID, VENOUS 2018-06-15 04:30:00 Test Item Value Reference Range Interpretation Comments POC-LACTIC ACID, 1.1 mmol/L 0.9-1.[address] [facility] 6720 VENOUS (BEAKER) (test [facility] Sara [facility] code = 2805) [address] URINALYSIS W/ REFLEX URINE [id number] 20:03:00 Test Item Value Reference Range Interpretation [...] = 2795) RAD, CHEST, 1 VIEW, NON [id number] 19:10:00Reason for exam:->SUSUPECTED INFECTIONShould this be performed [...] MDReport Verified Date/Time: 06/14/2018 19:10:10 Reading Location: [address] Reading Room CBC W/PLT COUNT & AUTO [id number] 04:36:00 Test Item Value Reference Range Interpretation [...] = 2801) RAD, CHEST, 1 VIEW, NON [id number] 04:13:00Reason for exam:->recent pneumothorax, new trachShould this [...] Carrillo Verified Date/Time: 06/14/2018 04:13:50 Reading Location: [facility] C0[facility] Transitional Reading Room D GAS, [id number] 01:01:00 Test Item Value Reference Range Interpretation [...] (test code = 1819) 40.0 % POCT-GLUCOSE [id number] 05:32:00 Test Item Value Reference Range Interpretation Comments POC-GLUCOSE METER 92 mg/dL 70-110 TESTED AT [facility] 6720 (BEAKER) (test code = ALIYA Ruiz [facility] [address] 1538) RAD, CHEST, 1 VIEW, NON [id number] 05:03:00Reason for exam:->evaluate for pneumo r/t CTShould this be performed at the bedside?->YesFINAL REPORT RAD, CHEST, 1 VIEW, NON DEPT INDICATION: evaluate for pneumo r/t CT COMPARISON: Prior day's exam FINDINGS: Portable frontal view of the chest. IMPRESSION: Support Lines: Stable. Lungs and pleura: Increased airspace opacity in the right base may be related atelectasishowever superimposed infection cannot be excluded in the proper clinical setting. No large pleural effusion. No pneumothorax.Heart and mediastinum: Stable contours. Additional findings: None. Signed: Ivanna Carrillo Verified Date/Time: 06/13/2018 05:03:31 Reading Location: [facility] B1 C013T Transitional Reading Room [id number] 04:22:00 Test Item Value Reference Range Interpretation Comments PARTIAL THROMBOPLASTIN TIME 27.4 seconds 22.5-36.0 (BEAKER) (test code = 760) PROTHROMBIN [id number] 04:21:00 Test Item Value Reference Range Interpretation Comments PROTIME (BEAKER) (test code = 13.8 seconds 11.7-14.7 759) INR (BEAKER) (test code = 370) 1.1 <=5.9 RECOMMENDED COUMADIN/WARFARIN INR THERAPY RANGESSTANDARD DOSE: 2.0 - 3.0 Includes: PROPHYLAXIS for venous thrombosis, systemic embolization; TREATMENT for venous thrombosis and/or pulmonary embolus.HIGH RISK: Target INR is 2.5-3.5 for patients with mechanical heart valves.[id number] 04:20:00 Test Item Value Reference Range Interpretation Comments PHOSPHORUS (BEAKER) (test code = 3.1 mg/dL 2.3-4.7 604) [id number] 04:20:00 Test Item Value Reference Range Interpretation Comments MAGNESIUM (BEAKER) (test code = 2.0 mg/dL 1.6-2.6 627) BASIC METABOLIC [id number] 04:20:00 Test Item Value Reference Range Interpretation [...] PATIEN TS. CBC W/PLT COUNT & AUTO [id number] 04:14:00 Test Item Value Reference Range Interpretation [...] ABSOLUTE COUNT 0.02 K/ L 0.04-0.54 L ([facility]) (test code = 416) BASOPHILS ABSOLUTE COUNT ([facility]) 0.03 K/ L 0.01-0.08 (test code = 417) IMMATURE GRANULOCYTES-RELATIVE 1 % 0-1 PERCENT ([facility]) (test code = 2801) POCT-GLUCOSE [id number] 00:14:00 Test Item Value Reference Range Interpretation Comments POC-GLUCOSE METER 126 mg/dL 70-110 H TESTED AT [facility] 6720 ([facility]) (test code = [facility] 1538) [address] RAD, CHEST, 1 VIEW, NON [id number] 12:29:00Reason for exam:->s/p[ L thoracocentesisFINAL REPORT CLINICAL HISTORY: s/p[ L thoracocentesis TECHNIQUE: 1 view of the chest. COMPARISON: 06/12/2018 IMPRESSION: A tracheostomy tube is again seen. There is no pneumothorax. Bibasilar atelectasis is again noted. There is no significant appearing pleural fluid. The cardiomediastinal silhouette is magnified by technique. Signed: Jim Steeleeport Verified Date/Time: 06/12/2018 12:29:27 Reading Location: [address] Consult Reading Room POCT-GLUCOSE [id number] 12:10:00 Test Item Value Reference Range Interpretation Comments POC-GLUCOSE METER 194 mg/dL 70-110 H TESTED AT [facility] 6720 ([facility]) (test code = [facility] 1538) [address] CT, CHEST, WITH [id number] 10:26:00Premedicated for contrast allergy. With general anesthesia [...] malignancy in the thorax. Signed: Saray Gaviria MDReport Verified Date/Time: 06/12/2018 10:26:26 Reading Location: [facility] Diagnostic Imaging Reading Room - [place] [address] , SOFT TISSUE NECK, [id number] 09:53:00Premedicated for contrast allergy. With gneral anesthesia [...] imaging is available. Signed: JR Humberto, Jimmie MCGARRYeport Verified Date/Time: 06/12/2018 09:53:06 Reading Location: [facility] C013V Neuro Reading Room [id number] 06:00:00 Test Item Value Reference Range Interpretation Comments PHOSPHORUS (BEAKER) (test code = 2.9 mg/dL 2.3-4.7 604) [id number] 06:00:00 Test Item Value Reference Range Interpretation Comments MAGNESIUM (BEAKER) (test code = 2.1 mg/dL 1.6-2.6 627) BASIC METABOLIC [id number] 06:00:00 Test Item Value Reference Range Interpretation [...] NOT APPLICABLE FOR DIALYSIS PATIEN TS. POCT-GLUCOSE [id number] 05:44:00 Test Item Value Reference Range Interpretation Comments POC-GLUCOSE METER 157 mg/dL 70-110 H TESTED AT [facility] 6741 (BEAKER) (test code = [place] 1538) [address] CBC W/PLT COUNT & AUTO [id number] 04:29:00 Test Item Value Reference Range Interpretation [...] = 2801) RAD, CHEST, 1 VIEW, NON [id number] 04:26:00Reason for exam:->evaluate for pneumo r/t CTShould this be performed at the bedside?->YesFINAL REPORT CLINICAL INDICATION: Support lines. Comparison: 06/10/2018 The cardiomediastinal contours are stable. The lung volumes remain low. The lateral pulmonary opacities are similar to previous within variation of acquisition technique. There is no pneumothorax. A tracheostomy tube is stable. Signed: Mayra Garcia MDReport Verified Date/Time: 06/12/2018 04:26:44 Reading Location: [address] Reading Room [id number] 04:02:00 Test Item Value Reference Range Interpretation Comments PARTIAL THROMBOPLASTIN TIME 29.1 seconds 22.5-36.0 ([employer]) (test code = 760) PROTHROMBIN [id number] 04:01:00 Test Item Value Reference Range Interpretation Comments PROTIME (ARCHIE) (test code = 13.4 seconds 11.7-14.7 759) INR ([facility] (test code = 370) 1.0 <=5.9 RECOMMENDED COUMADIN/WARFARIN INR THERAPY RANGESSTANDARD DOSE: 2.0 - 3.0 Includes: PROPHYLAXIS for venous thrombosis, systemic embolization; TREATMENT for venous thrombosis and/or pulmonary embolus.HIGH RISK: Target INR is 2.5-3.5 for patients with mechanical heart valves.POCT-GLUCOSE [id number] 00:10:00 Test Item Value Reference Range Interpretation Comments POC-GLUCOSE METER 225 mg/dL 70-110 H TESTED AT [facility] 6720 ([place]) (test code = ALIYA Ruiz [place] 1538) [address] POCT-GLUCOSE [id number] 06:14:00 Test Item Value Reference Range Interpretation Comments POC-GLUCOSE METER 129 mg/dL 70-110 H TESTED AT [facility] 6720 ([place]) (test code = ALIYA Ruiz [place] 1538) [address] TSH/FREE T4 IF [id number] 04:46:00 Test Item Value Reference Range Interpretation Comments THYROID STIMULATING HORMONE 0.87 uIU/mL 0.35-4.94 (BEAKER) (test code = 772) CBC W/PLT COUNT & AUTO [id number] 04:30:00 Test Item Value Reference Range Interpretation [...] 0-1 PERCENT (BEAKER) (test code = 2801) [id number] 04:26:00 Test Item Value Reference Range Interpretation Comments PREALBUMIN (BEAKER) (test code = 25 mg/dL 14-45 586) [id number] 04:24:00 Test Item Value Reference Range Interpretation Comments PHOSPHORUS (BEAKER) (test code = 3.5 mg/dL 2.3-4.7 604) [id number] 04:24:00 Test Item Value Reference Range Interpretation Comments MAGNESIUM (BEAKER) (test code = 2.0 mg/dL 1.6-2.6 627) BASIC METABOLIC [id number] 04:24:00 Test Item Value Reference Range Interpretation [...] NOT APPLICABLE FOR DIALYSIS PATIEN TS. PROTHROMBIN [id number] 04:19:00 Test Item Value Reference Range Interpretation Comments PROTIME (BEAKER) (test code = 14.5 seconds 11.7-14.7 759) INR (BEAKER) (test code = 370) 1.1 <=5.9 RECOMMENDED COUMADIN/WARFARIN INR THERAPY RANGESSTANDARD DOSE: 2.0 - 3.0 Includes: PROPHYLAXIS for venous thrombosis, systemic embolization; TREATMENT for venous thrombosis and/or pulmonary embolus.HIGH RISK: Target INR is 2.5-3.5 for patients with mechanical heart valves.[id number] 04:19:00 Test Item Value Reference Range Interpretation Comments PARTIAL THROMBOPLASTIN TIME 29.7 seconds 22.5-36.0 ([facility]) (test code = 760) POCT-GLUCOSE [id number] 01:04:00 Test Item Value Reference Range Interpretation Comments POC-GLUCOSE METER 128 mg/dL 70-110 H TESTED AT [place] [address] ([facility]) (test code = [facility] 1538) [address] POCT-GLUCOSE [id number] 18:19:00 Test Item Value Reference Range Interpretation Comments POC-GLUCOSE METER 93 mg/dL 70-110 TESTED AT [place] [address] ([facility]) (test code = [facility] [address] 1538) POCT-GLUCOSE [id number] 11:44:00 Test Item Value Reference Range Interpretation Comments POC-GLUCOSE METER 87 mg/dL 70-110 TESTED AT [place] [address] ([facility]) (test code = [facility] [address] 1538) POCT-GLUCOSE [id number] 06:13:00 Test Item Value Reference Range Interpretation Comments POC-GLUCOSE METER 158 mg/dL 70-110 H TESTED AT [place] [address] ([facility]) (test code = [facility] 1538) [address] BLOOD GAS, [id number] 04:53:00 Test Item Value Reference Range Interpretation Comments PH VENOUS (AKER) (test code = 7.48 7.32-7.42 H 701) PCO2 VENOUS ([facility]) (test code = 37 mmHg 41-51 L 755) PO2 VENOUS ([facility]) (test code = 94 mmHg 25-40 H 702) O2 SATURATION VENOUS (AKER) 97.7 % 40.0-70.0 H (test code = 703) HCO3 VENOUS ([facility]) (test code = 27 mmol/L 21-29 705) BASE EXCESS VENOUS ([facility]) (test 3.7 mmol/L -2.0-3.0 H code = 704) PATIENT TEMPERATURE (BEAKER) (test 37.0 C code = 1818) RAD, CHEST, 1 VIEW, NON [id number] 04:42:00Reason for exam:->s/p tracheostomyShould this be performed [...] Carrillo Verified Date/Time: 06/10/2018 04:42:37 Reading Location: [address] Reading Room [id number] 04:29:00 Test Item Value Reference Range Interpretation Comments MAGNESIUM (BEAKER) 2.2 mg/dL 1.6-2.6 Specimen slightly (test code = 627) hemolyzed [id number] 04:29:00 Test Item Value Reference Range Interpretation Comments PHOSPHORUS (BEAKER) 3.7 mg/dL 2.3-4.7 Specimen slightly (test code = 604) hemolyzed BASIC METABOLIC [id number] 04:29:00 Test Item Value Reference Range Interpretation [...] S NOT APPLICABLE FOR DIALYSIS PATIEN TS. [id number] 04:18:00 Test Item Value Reference Range Interpretation Comments PARTIAL THROMBOPLASTIN TIME 24.5 seconds 22.5-36.0 (BEAKER) (test code = 760) PROTHROMBIN [id number] 04:17:00 Test Item Value Reference Range Interpretation Comments PROTIME (BEAKER) (test code = 13.7 seconds 11.7-14.7 759) INR (BEAKER) (test code = 370) 1.0 <=5.9 RECOMMENDED COUMADIN/WARFARIN INR THERAPY RANGESSTANDARD DOSE: 2.0 - 3.0 Includes: PROPHYLAXIS for venous thrombosis, systemic embolization; TREATMENT for venous thrombosis and/or pulmonary embolus.HIGH RISK: Target INR is 2.5-3.5 for patients with mechanical heart valves.CBC W/PLT COUNT & AUTO [id number] 04:06:00 Test Item Value Reference Range Interpretation [...] PERCENT (BEAKER) (test code = 2801) POCT-GLUCOSE [id number] 01:05:00 Test Item Value Reference Range Interpretation Comments POC-GLUCOSE METER 161 mg/dL 70-110 H TESTED AT [facility] 6720 (BEAKER) (test code = ALIYA Ruiz [facility] 1538) [address] RAD, CHEST, 1 VIEW, NON [id number] 22:19:00Reason for exam:->Laryngeal massShould this be performed [...] Morales Verified Date/Time: 06/09/2018 22:19:49 Reading Location: [facility] C013 Consult Reading Room RAD, CHEST, 1 VIEW, NON [id number] 20:37:00Reason for exam:->Laryngeal massShould this be performed [...] Morales Verified Date/Time: 06/09/2018 20:37:30 Reading Location: [facility] C013 Consult Reading Room RAD, CHEST, 1 VIEW, NON [id number] 20:18:00 Reason for exam:->Post-opShould this be performed [...] findings: Osseous structures are unremarkable. Signed: Ivanna Carrillo Verified Date/Time: 06/09/2018 20:18:45 Nayla caldera Location: [address] Reading Room CBC W/PLT COUNT & AUTO [id number] 19:32:00 Test Item Value Reference Range Interpretation [...] = 3438) Received comment: User comments: Slide comments:[id number] 19:25:00 Test Item Value Reference Range Interpretation Comments PHOSPHORUS (BEAKER) (test code = 4.7 mg/dL 2.3-4.7 604) [id number] 19:25:00 Test Item Value Reference Range Interpretation Comments MAGNESIUM (BEAKER) (test code = 2.2 mg/dL 1.6-2.6 627) BASIC METABOLIC [id number] 19:25:00 Test Item Value Reference Range Interpretation [...] NOT APPLICABLE FOR DIALYSIS PATIEN TS. PROTHROMBIN [id number] 19:18:00 Test Item Value Reference Range Interpretation Comments PROTIME (BEAKER) (test code = 13.0 seconds 11.7-14.7 759) INR (BEAKER) (test code = 370) 1.0 <=5.9 RECOMMENDED COUMADIN/WARFARIN INR THERAPY RANGESSTANDARD DOSE: 2.0 - 3.0 Includes: PROPHYLAXIS for venous thrombosis, systemic embolization; TREATMENT for venous thrombosis and/or pulmonary embolus.HIGH RISK: Target INR is 2.5-3.5 for patients with mechanical heart valves.[id number] 19:18:00 Test Item Value Reference Range Interpretation Comments PARTIAL THROMBOPLASTIN TIME 24.0 seconds 22.5-36.0 (BEAKER) (test code = 760) [id number] 12:47:00 Test Item Value Reference Range Interpretation Comments HEMOGLOBIN (BEAKER) (test code = 15.7 GM/DL 13.7-17.5 410) PLATELET [id number] 12:47:00 Test Item Value Reference Range Interpretation Comments PLATELET COUNT (BEAKER) (test 203 K/CU MM 150-450 code = 756) History and Physical Notes Date/Time Note Provider Source 2022-11-28 [id number]:16:45Formatting of this note is IM -INTERNAL [facility] - 21:16:45 different from the original.[facility] MEDICINE [facility] Admission H&P Date of Service: 3CHIEF AFF COMPLAINT: Abdominal painHISTORY OF PRESENT ILLNESSRobweston [...] ago with an elevated lipase level in [place]. At this time, patient will be admitte d to the hospital for further work-up. Patient with a cute on chronic pancreatitis and will continue with p ain control and gentle hydration. We will keep patie nt n.p.o. at this time as well.PAST MEDICAL HISTORY Past Medical History: Diagnosis Date Aphonia 04/13/2019 Asthma Coronavirus infection 2019 Hx of laryngectomy 07/14/2018 Hyponatremia Leukocytosi s Neck infection 08/11/2018 Other chronic pancreat itis Squamous cell cancer of larynx Thyroid disease Tracheostomy in place PAST SURGICAL HISTORYPast Surgical History: Procedure Laterality Date ENDOSCOPIC RETROGRADE CHOLANGIOPANCRETOGRAPHY N/ A 01/05/2021 Surgeon: Yosef Napier MD; Location: [place] OR Location ESOPHAGEAL DILATATION N/A 02/11/2020 Surgeon: Fan Espinal MD; Location: [facility] OR Location ESOPHAGOGASTRODUODENOSCOPY N/A 01/20/2020 Surgeo n: Fan Espinal MD; Location: [facility] OR Location ESOPHAGOGASTRODUODENOSCOPY N /A 02/01/2020 Surgeon: Yosef Napier MD; Location: [facility] ([facility]) OR Location ESOPHAGOGASTRODUODENOSCOPY N/A 02/11/2020 Surgeo n: Fan Espinal MD; Location: [facility] OR Location GASTROSTOMY INTRAOPERATIVE CHOLANGIOGRAM N/A 02/15/2020 Surgeon: Cindy Rodriguez MD; Location: [facility] OR Locati on LAPAROSCOPIC CHOLECYSTECTOMY N/A 02/15/2020 Surg dick: Cindy Rodriguez MD; Location: [facility] OR Location TRACHEOSTOMY UPPER ULTRASOUND (SHX) [...] these medications albuterol 90 mcg/actuation inhaler Comments: [place] son for Stopping: ARIPiprazole 5 mg tablet [...] Out of Food in the Last Year: Deannebuddy sara true Ran Out of Food in the [...] in the Last Year: No REVIEW OF CPLOULV20 systems negative ex cept per HPIPHYSICAL EXAMINATIONBP 118/79 | Pulse 69 | Temp 36.7 ?C (98.1 ?F) | Resp 18 | Ht 1.803 m (5 ' 11") | Wt 79.4 kg (175 lb) | SpO2 94% | BMI 24.4 1 kg/m? General: No acute distressHEENT: Normal or [...] CL (mmol/L) Date Value 11/28/[address] (%) Date Value 11/28/2022 54.2 (H) BUN (mg/dL) D ate Value 11/28/2022 12 APTT Patient (Seconds) Date [...] understanding. Questions and concerned addressed.Surrogate decision maker: Rejiel of care expected after discharge: HOMETime spent: 2 minutes discussing the advanced care planSmoking Cessation: (Z71.6)Tobacco user?: NOPatient will require inpatient stay of 2 midnights or more gi jayashree high risk of morbidity and mortality.[place] MANAGER QA w as verified during stayMomontserrat Vilchis MD Electronically signed by Sara Vilchis MD a t 11/29/2022 1:52 AM [id number] and physica l [id number]:52:42History and physical [id number] 22AVAvailable for patient [id number] and physical noteLNIM-INTERNAL MEDICINE STAFFIM-INTE RNAL MEDICINE STAFFUT[address] Hs[id number] NGAL [id number]:52:[id number] 5|1. [id number] 2022-11-13 [id number]:44:36Formatting of this note is [facility] - 03:44:36 different from the original.[facility] [place] [facility] PHYSICALPCP: Hua Date of Service: 11/13/2022 IEF COMPLAINT: abdominal painHistory of Present Jykqswa89 yo male with PMH of asthma, history of hyponatremia, squamous cell cancer of the larynx , admitted to the hospital as a direct admit from [facility] after he was found to have a lipase level of 824.Past Medical History: Diagno sis Date Aphonia 04/13/2019 Asthma Coronavirus infec tion 2019 Hx of laryngectomy 07/14/2018 Hyponatremia Leukocytosis Neck infection 08/11/2018 Other chr onic pancreatitis Squamous cell cancer of larynx Thyr oid disease Tracheostomy in place Past Surgical History: Procedure Laterality Date ENDOSCOPIC RETROGRADE CHOLANGIOPANCRETOGRAPHY N/A 01/05/2021 Surgeon: Yosef Napier MD; Location: [facility] ESOPHAGEAL DILATATION N/A 02/11/2020 Surgeon: Fan Espinal MD; Location: [facility] OR Location ESOPHAGOGASTRODUODENOSCOPY N/A 01/20/2020 Surgeo n: Fan Espinal MD; Location: [facility] OR Location ESOPHAGOGASTRODUODENOSCOPY N /A 02/01/2020 Surgeon: Yosef Napier MD; Location: [facility] Location ESOPHAGOGASTRODUODENOSCOPY N/A 02/11/2020 Surge on: Fan Espinal MD; Location: [facility] OR Location GASTROSTOMY INTRAOPERATIVE CHOLANGIOGRAM N/A 02/15/2020 Surgeon: Cindy Rodriguez MD; Location: [facility] OR Locati on LAPAROSCOPIC CHOLECYSTECTOMY N/A 02/15/2020 Surg dick: Cindy Rodriguez MD; Location: [facility] OR Location TRACHEOSTOMY UPPER ULTRASOUND (SHX) N/A 01/29/2020 Surgeon: Brodie Jansen MD; Locat ion: [facility] Location Allergies Allergen Reactions Bactrim [Sulfamethoxazole-Trimethoprim ] Rash Iodine And Iodide Containing Products Nause a Only Penicillins Hives and Rash Other reaction(s ): Unknown - See comments Ampicillin Unknown - See comments Levofloxacin Hives and Rash @HMED@Socia l History Socioeconomic History Marital status: Si ngle Spouse name: Daniel Number of children: 0 Years of education: 16 Highest education level: Some jt ege, no degree Occupational History 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 Radu Treadwell [id number] and physical [id number]:56:00History and physical [id number]|1874 0799 75AVAvailable for patient [id number] and physical noteLNUT[address] Bx[id number] NGAL [id number]:56:001.2.840.596661.1.72.3.1 5|1. [id number] 2022-11-04 [id number]:53:48Formatting of this note is [facility] - 21:53:48 different from the original.[facility] ADMI Health H&PDate of Service: 3CHIEF COMPLAINT: abdominal pain, nausea/vomiting, diarrheaHistory of Present Ralgbzy11 yo male with pmh of asthma, CO [...] gaines Medical History: Diagnosis Date Aphonia 04/13/19 20 Asthma Coronavirus infection 2019 Hx of laryngec acacia 07/14/2018 Hyponatremia Leukocytosis Neck infect ion 08/11/2018 Other chronic pancreatitis Squamous c ell cancer of larynx Thyroid disease Tracheostomy in place Past Surgical History: Procedure Lateralit y Date ENDOSCOPIC RETROGRADE CHOLANGIOPANCRETOGRAP HY N/A 01/05/2021 Surgeon: Yosef Napier MD; Locati on: [facility] Location ESOPHAGEAL DILATATION N/A 02/11/2020 Surgeon: Fan Espinal MD; Location: [facility] OR Location ESOPHAGOGASTRODUODENOSCOPY N/A 01/20/2020 Surgeo n: Fan Espinal MD; Location: [facility] OR Location ESOPHAGOGASTRODUODENOSCOPY N /A 02/01/2020 Surgeon: Yosef Napier MD; Location: [facility] Location ESOPHAGOGASTRODUODENOSCOPY N/A 02/11/2020 Surgeo n: Fan Espinal MD; Location: [facility] OR Location GASTROSTOMY INTRAOPERATIVE CHOLANGIOGRAM N/A 02/15/2020 Surgeon: Cindy Rodriguez MD; Location: [facility] OR Locati on LAPAROSCOPIC CHOLECYSTECTOMY N/A 02/15/2020 Surg dick: Cindy Rodriguez MD; Location: [facility] OR Location TRACHEOSTOMY UPPER ULTRASOUND (SHX) N/A 01/29/2020 Surgeon: Brodie Jansen MD; Locat ion: [facility] Location Family History Proble m Relation Age of Onset Hypertension Father Jesus ry Heart Disease Father 40 PCI 4 stents Breast Canc er Mother ALLERGIESAllergies Allergen Reactions Lisa trim [Sulfamethoxazole-Trimethoprim] [...] History Marital status: Single Spo use name: Daniel Number of children: 0 Years of education: 16 Highest education level: Some jt ege, no degree Occupational History 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 Tobacco Use Smoking status : Former Smokeless tobacco: Never Tobacco comments : .5 PPD X >30 yrs Substance and Sexual Activity Alcohol use: Not Currently Comment: / of liq our per week Drug use: Yes Types: Marijuana Social Determinants of Health Financial Resource Strain : Low Risk (01/29/2020) Overall Financial Resource Strain (CARDIA) Difficulty of Paying Living Expenses: Not hard at all Food Insecurity: No Fo od Insecurity (01/29/2020) Hunger Vital Sign Worrie d About Running Out of Food in the Last Year: Neve r true Ran Out of Food in the Last Year: Never joanna e Transportation Needs: No Transportation Needs (01/29/2020) PRAPARE - Transportation Lack of Transportation (Medical): No Lack of Transportat ion (Non-Medical): No Review of Systems Constitution al: Negative. HENT: Negative. Eyes: Negative. Respiratory: Positive for cough (nonproductive). Negative for apnea, choking, chest tightness, shortness of breath, wheezing and stridor. Breas ts: Negative. Cardiovascular: Negative. Gastrointestinal: Positive for abdominal pain, diarrhea (loose), nausea and vomiting. Negative for abdominal distention, anal bleeding, blood in st ool, constipation and rectal pain. Genitourinary: Negative. Musculoskeletal: Negative. Skin: Negat pelon. Neurological: Negative. Psychiatric/Behavioral: Negative. Endocrine: Endocrine negativePHYSICAL EXAMINATIONVitals: 11/04/22 1700 11/04/22 1800 11/04/22 1929 11/04/221952 BP: 120/82 105/62 11 2/70 Pulse: 73 63 52 Resp: 16 14 20 Temp: 36.1 ?C (97 ?F) TempSrc: SpO2: 94% 93% 92% Weight: Height: 1.524 m (5') Physical ExamVitals and nursing note review ed. Constitutional: General: He is not in acute [...] Eli Toney MD at 11/05/2022 3:54 AM [id number] and physical [id number]:54:37History and physical [id number] 6756 13AVAvailable for patient [id number] and physical noteLNUT[address]Jt[id number] NGAL [id number]:54:371.2.840.956204.1.72.3.1 5|1. [id number]
[2023-02-04] MEDS ORDERED: ONDANSETRON 4 MG/2 ML VIAL ONE ×2 (20:02→22:10)
[2023-02-04] MEDS ORDERED: MORPHINE 4 MG/ML SYR ONE ×2 (20:02→22:10)
--- NOTE | 2023-02-04 20:39 | RAD REPORT ---
EXAM DESCRIPTION: CT - Abdomen Pelvis Wo Contrast - 02/04/2023 8:03 pm CLINICAL HISTORY: ABD PAIN COMPARISON: Abdomen Pelvis W Contrast dated 12/23/2022; Abdomen Pelvis Wo Contrast dated 3; Abdomen Pelvis W Contrast dated 10/02/2020; Abdomen Pelvis Wo Contrast dated 09/29/2020; Abdomen W o Contrast dated 12/31/2022 TECHNIQUE: Thin cut axial CT imaging of the abdomen and pelvis was performed without IV contrast. Mu ltiplanar reformats were generated and reviewed. All CT scans are performed using dose optimization technique as appropriate and may include automated exposure control or mA/KV adjustment according to patient size. FINDINGS: No suspicious findings in the lung bases. The liver, spleen, and adrenal glands show no suspicious findings. Gallbladder was surgically removed . Heterogeneity in the region of the pancreatic head, with an ill-defined elongated 2.3 cm hypoattenuat ing structure, stable since the prior exam. Mild fat stranding and residual wall thickening along the second part of the duodenum, also not significantly changed. Symmetric renal contour, without suspicious parenchymal findings within limits of noncontrast techniq ue. No evidence of hydroureteronephrosis. Nonobstructing 2 millimeter mid to lower pole right renal c alculus. Mild to moderate distal colonic diverticulosis. No dilated bowel loops or bowel wall thickening. No free air, free fluid or inflammatory stranding. N o hernia, mass or bulky lymphadenopathy. The urinary bladder is without significant finding. No suspicious bony findings. IMPRESSION: Stable heterogeneity in the region of the pancreatic head with adjacent mild fat strandi ng and residual wall thickening of the second part of duodenum. Findings may suggest residual or recu rrent mild acute pancreatitis with adjacent duodenitis, within limits of noncontrast evaluation. Questionable ill-defined 2.3 cm hypoattenuating elongated structure along the pancreatic head, may re present residua of an intrapancreatic collection.
--- NOTE | 2023-02-04 21:11 | ER ---
Nurse's Notes [facility] Name: Akin Pugh Age: 52 yrs Sex: Male : 1970 Arrival Date: 02/04/2023 Time: 19:09 Bed 15 Private MD: Diagnosis: Other chronic pancreatitis;Other acute pancreatitis without necrosis or infection Presentation: 02/04 19:17 Chief complaint: EMS states: We were called for pancreas and abdominal pain. He has vc1 been vomiting for the last 2 hours. He tried to eat broth an hour ago but couldn't keep it down. BP left 153/101, right 167/106. Coronavirus screen: Vaccine status: Patient reports receiving the 2nd dose of the covid vaccine. Client denies travel out of the [place] in the last 14 days. nausea, vomiting. Client presents with at least one sign or symptom that may indicate coronavirus-19. Ebola Screen: Patient negative for fever greater than or equal to 101.5 degrees Fahrenheit, and additional compatible Ebola Virus Disease symptoms Patient denies exposure to infectious person. Patient denies travel to an Ebola-affected area in the 21 days before illness onset. No symptoms or risks identified at this time. Initial Sepsis Screen: Does the patient meet any 2 criteria? No. Patient's initial sepsis screen is negative. Does the patient have a suspected source of infection? No. Patient's initial sepsis screen is negative. Risk Assessment: Do you want to hurt yourself or someone else? Patient reports no desire to harm self or others. Onset of symptoms is unknown. Care prior to arrival: Glucose check: 113. 19:17 Method Of Arrival: EMS: [facility] vc1 19:17 Acuity: PAO 3 vc1 Triage Assessment: 19:20 General: Appears in no apparent distress. uncomfortable, ill, Behavior is cooperative. vc1 Pain: Complains of pain in right upper quadrant and left upper quadrant Pain does not radiate. Pain currently is 10 out of 10 on a pain scale. Aggravated by eating, drinking, Noted to be grimacing, guarding, Also complains of nausea, vomiting. EENT:. Neuro: Level of Consciousness is awake, alert, obeys commands, Oriented to person, place, time, situation, Appropriate for age. Cardiovascular: No deficits noted. Respiratory: Respiratory effort is even, unlabored, Respiratory pattern is regular, symmetrical, tracheostomy. GI: Reports upper abdominal pain, intolerance of fluids, intolerance of food, nausea, Pain is 10 out of 10 on a pain scale. vomiting. : No deficits noted. No signs and/or symptoms were reported regarding the genitourinary system. Derm: No deficits noted. No signs and/or symptoms reported regarding the dermatologic system. Musculoskeletal: No deficits noted. No signs and/or symptoms reported regarding the musculoskeletal system. Historical: - Allergies: 19:20 Ampicillin; vc1 19:20 Iodinated Contrast Media - IV Dye; vc1 19:20 Iodine; vc1 19:20 Levaquin; vc1 - Home Meds: 19:20 escitalopram oxalate Oral [Active]; Levoxyl Oral [Active]; vc1 - PMHx: 19:20 Asthma; COPD; Pancreatitis; THROAT CA; vc1 - PSHx: 19:20 Tracheostomy (THROAT CA); vc1 - Immunization history:: Client reports receiving the 2nd dose of the Covid vaccine. - Social history:: Smoking status: Patient reports the use of cigarette tobacco products, smokes one-half pack cigarettes per day. Screenin:23 [facility] ED Fall Risk Assessment (Adult) History of falling in the last 3 months, vc1 including since admission No falls in past 3 months (0 pts) Confusion or Disorientation No (0 pts) Intoxicated or Sedated No (0 pts) Impaired Gait No (0 pts) Mobility Assist Device Used No (0 pt) Altered Elimination No (0 pt) Score/Fall Risk Level 0 - 2 = Low Risk Oriented to surroundings, Maintained a safe environment, Educated pt \T\ family on fall prevention, incl call for assistance when getting out of bed. Abuse screen: Denies threats or abuse. Nutritional screening: No deficits noted. Tuberculosis screening: No symptoms or risk factors identified. Assessment: 20:45 Reassessment: Patient is alert, oriented x 3, equal unlabored respirations, skin la4 warm/dry/pink. General: Appears in no apparent distress. Behavior is calm, cooperative, appropriate for age. Pain: Complains of pain in right upper quadrant and left upper quadrant Pain does not radiate. Pain currently is 10 out of 10 on a pain scale. Quality of pain is described as burning. Neuro: No deficits noted. Barrett Agitation-Sedation Scale (RASS): 0 - Alert and Calm Level of Consciousness is awake, alert, obeys commands, Oriented to person, place, time, situation, Appropriate for age. 20:45 Cardiovascular: No deficits noted. Heart tones S1 S2 Capillary refill < 3 seconds is la4 brisk Pulses are all present. Edema is absent. Rhythm is sinus rhythm. Respiratory: No deficits noted. Breath sounds are clear. GI: Abdomen is flat, non-distended, Bowel sounds present X 4 quads. Abd is soft Abdomen is tender to palpation in right upper quadrant and left upper quadrant. Vital Signs: 19:15 BP 162 / 94; Pulse 90; Resp 20; Pulse Ox 95% ; la4 19:17 BP 178 / 98; Pulse 97; Resp 20; Temp 99.1; Pulse Ox 94% ; Weight 79.38 kg; Height 6 ft. vc1 0 in. ; Pain 10/10; 20:30 Pain 5/10; la4 22:00 BP 136 / 86; Pulse 75; Resp 18; Pulse Ox 94% ; la4 23:30 BP 134 / 83; Pulse 82; Resp 18; Pulse Ox 93% ; la4 02/05 00:15 BP 125 / 72; Pulse 66; Resp 18; Pulse Ox 93% ; la4 01:20 Pain 5/10; la4 01:21 Pain 5/10; la4 02/04 19:17 Body Mass Index 23.73 (79.38 kg, 182.88 cm) vc1 19:17 Pain Scale: Adult vc1 20:30 Pain Scale: Adult la4 01:20 Pain Scale: Adult la4 01:21 Pain Scale: Adult la4 [place] Coma Score: 00:15 Eye Response: spontaneous(4). Motor Response: obeys commands(6). Verbal Response: la4 oriented(5). Total: 15. ED Course: 02/04 19:15 Missed attempt(s): 20 gauge blood collected. Bleeding controlled, band aid applied, vc1 catheter tip intact. 19:16 Patient arrived in ED. vc1 19:16 Jimi Ayala MD is Attending Physician. ec2 19:20 Triage completed. vc1 19:20 Arm band placed on left wrist. vc1 19:23 Patient has correct armband on for positive identification. Bed in low position. Call vc1 light in reach. Pulse ox on. NIBP on. 19:44 Addison Aguirre, RN is Primary Nurse. la4 19:59 CT Abd/Pelvis - Without Contrast Sent. la4 20:05 CT Abd/Pelvis - Without Contrast In Process Unspecified. EDMS 21:09 Attending Physician role handed off by Jimi Ayala MD sp4 21:09 Clarke Morris MD is Attending Physician. sp4 21:10 Jasbir Saini MD is Hospitalizing Provider. ec2 21:20 No provider procedures requiring assistance completed. Inserted saline lock: 18 gauge la4 in right wrist, using aseptic technique. 02/05 00:15 Provided Education on: plan of care and need for admission. la4 01:19 Patient admitted, IV remains in place. la4 Administered Medications: 02/04 19:59 Drug: morphine IVP or IV 4 mg IVP once over 4 mins Route: IVP; Infused Over: 4 mins; la4 Site: right wrist; 20:30 Follow up: Pain 5/10 Adult; Response: No adverse reaction; Pain is decreased la4 19:59 Drug: Ondansetron IVP 4 mg IVP once; over 2 minutes Route: IVP; Site: right wrist; la4 20:23 CANCELLED (Physician Discretion): evvilzstwa24 mg/kg IVPB once; once over 2 hrs; not to ec2 exceed 2 grams; (mix in 250 to 500 mL NS) 20:23 CANCELLED (Physician Discretion): cefepime1 grams IVPB at 200 ml/hr once over 30 mins; ec2 (mix in NS 100 mL) 22:04 Drug: morphine IVP or IV 8 mg IVP once over 4 mins Route: IVP; Infused Over: 4 mins; la4 Site: right wrist; 02/05 01:21 Follow up: Pain 5/10 Adult; Response: No adverse reaction; Pain is decreased la4 02/04 22:04 Drug: NS 0.9% IV 1000 ml IV at 1 bolus Per protocol; 1000 mL bolus Route: IV; Rate: 1 la4 bolus; Site: right wrist; 23:00 Follow up: IV Status: Completed infusion; IV Intake: 1000ml la4 23:00 Drug: oxyCODONE-acetaminophen PO (5 mg-325 mg) 2 tabs PO once Route: PO; la4 02/05 01:20 Follow up: Pain 5/10 Adult; Response: No adverse reaction; Pain is decreased la4 Medication: 02/04 19:24 VIS not applicable for this client. vc1 Intake: 23:00 IV: 1000ml; Total: 1000ml. la4 Outcome: 21:10 Decision to Hospitalize by Provider. ec2 02/05 01:19 Admitted to Med/surg accompanied by tech, via wheelchair, with chart, Report called to marah Contreras RN Condition: improved Instructed on the need for admit, 01:20 Patient left the ED. marah Signatures: Dispatcher [employer] Lashawn Dueñas, RN RN vc1 Clarke Morris MD MD sp4 Jimi Ayala MD MD ec2 Addison Aguirre RN RN la4
--- NOTE | 2023-02-04 21:11 | EDPHYS ---
Physician Documentation [facility] Name: Akin Pugh Age: 52 yrs Sex: Male : 1970 Arrival Date: 02/04/2023 Time: 19:09 Bed 15 Private MD: ED Physician Clarke Morris HPI: 02/04 19:30 This 52 yrs old Male presents to ER via EMS with complaints of abd pain. ec2 19:30 Patient with history of chronic pancreatitis arrives today due to concern for upper ec2 abdominal pain. States pain has been ongoing for 3 days. Patient reports some associated nausea and vomiting. Patient reports he has been eating some however has been decreased and has had worsened pain. Patient reports he is on oxycodone chronically.. Historical: - Allergies: 19:20 Ampicillin; vc1 19:20 Iodinated Contrast Media - IV Dye; vc1 19:20 Iodine; vc1 19:20 Levaquin; vc1 - Home Meds: 19:20 escitalopram oxalate Oral [Active]; Levoxyl Oral [Active]; vc1 - PMHx: 19:20 Asthma; COPD; Pancreatitis; THROAT CA; vc1 - PSHx: 19:20 Tracheostomy (THROAT CA); vc1 - Immunization history:: Client reports receiving the 2nd dose of the Covid vaccine. - Social history:: Smoking status: Patient reports the use of cigarette tobacco products, smokes one-half pack cigarettes per day. ROS: 19:30 Constitutional: as per hpi ec2 Exam: 19:30 Constitutional: GEN: NAD Head: atraumatic Eyes: EOMI Ears: External ears are ec2 normal. CV: regular rate LUNGS: no respiratory distress ABD: non-distended, soft, no guarding, not rigid, tender in the epigastrium. SKIN: no evidence of rashes MSK: no evidence of trauma NEURO: moves all extremities equally Vital Signs: 19:15 BP 162 / 94; Pulse 90; Resp 20; Pulse Ox 95% ; la4 19:17 BP 178 / 98; Pulse 97; Resp 20; Temp 99.1; Pulse Ox 94% ; Weight 79.38 kg; Height 6 ft. vc1 0 in. ; Pain 10/10; 20:30 Pain 5/10; la4 22:00 BP 136 / 86; Pulse 75; Resp 18; Pulse Ox 94% ; la4 23:30 BP 134 / 83; Pulse 82; Resp 18; Pulse Ox 93% ; la4 02/05 00:15 BP 125 / 72; Pulse 66; Resp 18; Pulse Ox 93% ; la4 01:20 Pain 5/10; la4 01:21 Pain 5/10; la4 02/04 19:17 Body Mass Index 23.73 (79.38 kg, 182.88 cm) vc1 19:17 Pain Scale: Adult vc1 20:30 Pain Scale: Adult la4 01:20 Pain Scale: Adult la4 01:21 Pain Scale: Adult la4 Cal Coma Score: 00:15 Eye Response: spontaneous(4). Motor Response: obeys commands(6). Verbal Response: la4 oriented(5). Total: 15. MDM: 02/04 19:16 Patient medically screened. ec2 19:30 Data reviewed: vital signs. ED course: Patient arrives today due to concern for upper ec2 abdominal pain. Examination remarkable for abdominal findings notable. Will obtain lab work, CT abdomen pelvis and treat the patient's pain with IV morphine. Currently considering process such as pancreatitis, chronic abdominal pain, suspicion for intra-abdominal abscess.. 20:42 ED course: CT abdomen pelvis shows pancreatitis, also shows small hypoattenuating ec2 lesion in the pancreatic head. . 21:09 ED course: Patient with pending lab work, does have pancreatitis on CAT scan, will ec2 require admission for pain control. I discussed case with hospitalist, pending labs and admission.. 02/05 01:10 Differential diagnosis: appendicitis, bowel obstruction, coronary artery disease, sp4 cholecystitis, diverticulitis, gastritis. Data reviewed: nurses notes, old medical records, lab test result(s), radiologic studies, CT scan. Consideration of Admission/Observation Patient was admitted/placed on observation. Escalation of care including admission/observation considered. Management of patient was discussed with the following: Hospitalist: Discussed with Dr. Saini. ED course: Patient's blood work has returned and patient was admitted uneventfully by the hospitalist.. 02/04 19:30 Order name: CBC with Diff; Complete Time: 01:10 ec2 02/04 19:30 Order name: CMP; Complete Time: 01:10 ec2 02/04 19:30 Order name: Lipase; Complete Time: 01:10 ec2 02/05 00:52 Order name: CBC with Automated Diff EDMS 02/05 00:52 Order name: CBC with Automated Diff EDMS 02/05 00:52 Order name: Comprehensive Metabolic Panel EDMS 02/05 00:52 Order name: Comprehensive Metabolic Panel EDMS 02/04 19:30 Order name: CT Abd/Pelvis - Without Contrast; Complete Time: 20:41 ec2 Administered Medications: 02/04 19:59 Drug: morphine IVP or IV 4 mg IVP once over 4 mins Route: IVP; Infused Over: 4 mins; la4 Site: right wrist; 20:30 Follow up: Pain 5/10 Adult; Response: No adverse reaction; Pain is decreased la4 19:59 Drug: Ondansetron IVP 4 mg IVP once; over 2 minutes Route: IVP; Site: right wrist; la4 20:23 CANCELLED (Physician Discretion): [email or web address] mg/kg IVPB once; once over 2 hrs; not to ec2 exceed 2 grams; (mix in 250 to 500 mL NS) 20:23 CANCELLED (Physician Discretion): cefepime1 grams IVPB at 200 ml/hr once over 30 mins; ec2 (mix in NS 100 mL) 22:04 Drug: morphine IVP or IV 8 mg IVP once over 4 mins Route: IVP; Infused Over: 4 mins; la4 Site: right wrist; 02/05 01:21 Follow up: Pain 5/10 Adult; Response: No adverse reaction; Pain is decreased la4 02/04 22:04 Drug: NS 0.9% IV 1000 ml IV at 1 bolus Per protocol; 1000 mL bolus Route: IV; Rate: 1 la4 bolus; Site: right wrist; 23:00 Follow up: IV Status: Completed infusion; IV Intake: 1000ml la4 23:00 Drug: oxyCODONE-acetaminophen PO (5 mg-325 mg) 2 tabs PO once Route: PO; la4 02/05 01:20 Follow up: Pain 5/10 Adult; Response: No adverse reaction; Pain is decreased la4 Disposition Summary: 02/04/23 21:10 Hospitalization Ordered Notes: Hospitalization Status: Inpatient Admission ec2 Provider: Jasbir Saini ec2 Location: Telemetry/[facility] (Inpatient) ec2 Condition: Stable ec2 Problem: an acute exacerbation ec2 Symptoms: have improved ec2 Bed/Room Type: Standard ec2 Room Assignment: 407(02/05/23 00:53) bp Diagnosis - Other chronic pancreatitis ec2 - Other acute pancreatitis without necrosis or infection ec2 Forms: - Medication Reconciliation Form ec2 - SBAR form ec2 - Leadership Thank You Letter ec2 Signatures: Dispatcher [employer] Turner Holguin RN RN bp Lashawn Powers RN RN vc1 Clarke Morris MD MD sp4 Jimi Ayala MD MD ec2 Addison Aguirre RN RN la4 Corrections: (The following items were deleted from the chart) 02/04 20:23 20:23 vancoMYCIN IVPB 15 mg/kg IVPB once; once over 2 hrs; not to exceed 2 grams; (mix ec2 in 250 to 500 mL NS) ordered. ec2 20:23 Cefepime IVPB 1 grams IVPB at 200 ml/hr once over 30 mins; (mix in NS 100 mL) ec2 ordered. ec2 02/05 00:53 02/04 21:10 ec2 bp
[2023-02-04] MEDS ORDERED: NA CHLORIDE 0.9% 1,000 ML ONE (22:10)
[2023-02-04] MEDS ORDERED: Oxycodone HCl/Acetaminophen 5/325 MG TAB ONE (23:39)
[2023-02-05 00:12] LABS: Albumin 2.9 g/dL (3.4-5.0); Bilirubin Total 2.7 mg/dL (0.2-1.0); Potassium 3.3 mEq/L (3.5-5.1); Protein, Total 6.2 g/dL (6.4-8.2)
[2023-02-05 00:21] LABS: Absolute Lymphocytes (CBC) 0.9 K/uL (0.7-4.9); Hematocrit 48.2 % (39.6-49.0); Lymphocytes % 9.7 % (15.3-44.8); MCV 92.3 fL (80-100); MPV 7.4 fL (7.6-11.3); Platelets 211 thou/uL (152-406); RBC Red Blood Cell Count 5.22 M/uL (4.33-5.43)
[2023-02-05] MEDS ORDERED: ACETAMINOPHEN 500 MG TAB PO PRN (00:47)
--- NOTE | 2023-02-05 00:52 | P.HP ---
Certification for Inpatient Patient admitted to: Inpatient With expected LOS: >2 Midnights Patient will require the following post-hospital care: None Practitioner: I am a practitioner with admitting privileges, knowledge of patient current condition, hospital course, and medical plan of care. Services: Services provided to patient in accordance with Admission requirements found in Title 42 Section 412.3 of the Code of Federal Regulations Patient History Date of Service: 02/05/23 Reason for admission: Abdominal pain History of Present Illness: 52 yrs old Male with a past medical history of asthma, COPD, pancreatitis, throat cancer status post tracheostomy in 2017 presents to ER via EMS with complaints of abdominal pain. Patient has a history of chronic pancreatitis. Started having abdominal pain for the last 3 days which was worsening progressively and was brought to ER. This is typical of his acute pancreatitis episodes. Could not tolerate a diet associated with nausea and vomiting. Denies any fever or chills. No chest pain or shortness of breath. Pain is located in the upper abdomen but radiates to the back, sharp in quality, 8 out of 10 in severity. Patient already had received morphine twice in the ER without relief . Patient was assessed in the ER and was found to have acute on chronic pancreatitis and was admitted for further management for pain control and management of pancreatitis . Allergies levofloxacin [From Levaquin] Allergy (Severe, Verified 02/05/23 01:24) Itching/Hives/Rash ampicillin Allergy (Verified 02/05/23 01:24) Itching/Hives/Rash iodine Allergy (Verified 02/05/23 01:24) Hives/Rash Home medications list reviewed: Yes Home Medications: Escitalopram [Lexapro*] 20 mg PO DAILY #30 tab 02/16/21 Gabapentin [Neurontin*] 800 mg PO TID 12/11/22 Lipase/Protease/Amylase [[place] 12,000 Units Capsule] 1 tab PO TID 12/11/22 Levothyroxine [Synthroid*] 150 mcg PO [id number] 12/31/22 Pantoprazole Sodium [Protonix] 40 mg PO BID 30 Days #60 tab 01/02/23 Oxycodone HCl 10 mg PO Q6HP PRN 02/05/23 - Past Medical/Surgical History Diabetic: No Past Medical History: Reviewed- Non-Contributory -: Asthma -: Depression -: Throat cancer status post complete laryngectomy/reconstruction 06/2018 -: Recurrent postop infection -: Chronic pain -: Former tobacco use -: Surgical hypothyroidism -: neuropathy -: Pancreatitis/duodenitis Past Surgical History: Reviewed- Non-Contributory -: Tracheostomy -: Appendectomy -: Complete laryngectomy with reconstruction -: knee surgery bilateral knees -: Thyroidectomy Psychosocial/ Personal History: Patient is . He has 3 children. - Family History Father -: Heart disease, Diabetes Notes: agent orange: immobile Mother -: Cancer Notes: breast ca - Social History Smoking Status: Former smoker Alcohol use: No CD- Drugs: No Caffeine use: Yes Review of Systems 10-point ROS is otherwise unremarkable General: Weakness, Unremarkable Eyes: Unremarkable ENT: Unremarkable Respiratory: Unremarkable Cardiovascular: Unremarkable Gastrointestinal: Nausea, Abdominal Pain, No Distention Genitourinary: Unremarkable Musculoskeletal: Back Pain, Unremarkable Integumentary: Unremarkable Neurological: Unremarkable Physical Examination - Vital Signs Temperature: 98.4 F Blood Pressure: 162/94 Pulse: 90 Respirations: 18 Pulse Ox (%): 98 - Physical Exam General: Alert, Oriented x3, Cooperative, Moderate distress HEENT: Atraumatic, Normocephalic Neck: Supple Respiratory: Clear to auscultation bilaterally, Normal air movement Cardiovascular: No edema, Regular rate/rhythm, Normal S1 S2 Capillary refill: <2 Seconds Gastrointestinal: Non-distended, W/out hepatosplenomegaly, Tenderness Musculoskeletal: No clubbing, No swelling Integumentary: No rashes, No breakdown Neurological: Normal speech, Normal strength at 5/5 x4 extr, Cranial nerves 3-12 intact, Normal reflexes 2+, Normal affect Lymphatics: No axilla or inguinal lymphadenopathy - Studies Laboratory Data (last 24 hrs) 02/04/23 02/04/23 23:31 23:31 WBC 9.20 Hgb 16.0 Hct 48.2 Plt Count 211 Sodium 140 Potassium 3.3 L BUN 4 L Creatinine 0.61 L Glucose 99 Total Bilirubin 2.7 H AST 52 H ALT 31 Alkaline Phosphatase 173 H Lipase 113 H Imagings Data: EXAM DESCRIPTION: CT - Abdomen Pelvis Wo Contrast - 02/04/2023 8:03 pm CLINICAL HISTORY: ABD PAIN COMPARISON: Abdomen Pelvis W Contrast dated 12/23/2022; Abdomen Pelvis Wo Contrast dated 12/11/2022; Abdomen Pelvis W Contrast dated 10/02/2020; Abdomen Pelvis Wo Contrast dated 09/29/2020; Abdomen Wo Contrast dated 12/31/2022 TECHNIQUE: Thin cut axial CT imaging of the abdomen and pelvis was performed without IV contrast. Multiplanar reformats were generated and reviewed. All CT scans are performed using dose optimization technique as appropriate and may include automated exposure control or mA/KV adjustment according to patient size. FINDINGS: No suspicious findings in the lung bases. The liver, spleen, and adrenal glands show no suspicious findings. Gallbladder was surgically removed. Heterogeneity in the region of the pancreatic head, with an ill-defined elongated 2.3 cm hypoattenuating structure, stable since the prior exam. Mild fat stranding and residual wall thickening along the second part of the duodenum, also not significantly changed. Symmetric renal contour, without suspicious parenchymal findings within limits of noncontrast technique. No evidence of hydroureteronephrosis. Nonobstructing 2 millimeter mid to lower pole right renal calculus. Mild to moderate distal colonic diverticulosis. No dilated bowel loops or bowel wall thickening. No free air, free fluid or inflammatory stranding. No hernia, mass or bulky lymphadenopathy. The urinary bladder is without si gnificant finding. No suspicious bony findings. IMPRESSION: Stable heterogeneity in the region of the pancreatic head with adjacent mild fat stranding and residual wall thickening of the second part of duodenum. Findings may suggest residual or recurrent mild acute pancreatitis with adjacent duodenitis, within limits of noncontrast evaluation. Questionable ill-defined 2.3 cm hypoattenuating elongated structure along the pancreatic head, may represent residua of an intrapancreatic collection Assessment and Plan - Problems (Diagnosis) (1) Acute pancreatitis Current Visit: No Status: Acute Plan: Acute on chronic pancreatitis pain control IV fluids Lipase trended CT findings noted Monitor closely Qualifiers: Pancreatitis type: unspecified pancreatitis type Acute pancreatitis complication: no infection or necrosis Qualified Code(s): K85.90 - Acute pancreatitis without necrosis or infection, unspecified (2) Duodenitis Current Visit: Yes Status: Acute Plan: Start on PPI Pain control N.p.o. for now May need follow-up with GI if not better LFTs trended (3) Tracheostomy dependent Current Visit: No Status: Chronic Plan: Supportive management (4) COPD (chronic obstructive pulmonary disease) Onset Date: 10/14/17 Current Visit: No Status: Chronic Plan: Continue home medications and titrate as needed Not in exacerbation Bronchodilators as needed Qualifiers: (5) History of depression Onset Date: 10/14/17 Current Visit: No Status: Chronic Plan: Continue home medications (6) History of laryngeal cancer Current Visit: No Status: Chronic Plan: Supportive management for now Discharge Plan: Home Plan to discharge in: 48 Hours - Advance Directives Does patient have a Living Will: No Does patient have a Durable POA for Healthcare: No - Code Status/Comfort Care Code Status: Full Code Physician Review: Patient Assessed, Agree with Above Assessment and Plan Time Spent Managing Pts Care (In Minutes): 47
[2023-02-05 01:23] VITALS: BMI 23.8
[2023-02-05] MEDS: NA CHLORIDE 0.9% 1,000 ML IV SCH ×3 (01:46→20:34)
[2023-02-05] MEDS: ONDANSETRON 4 MG/2 ML VIAL IV PRN ×2 (01:52→22:21)
[2023-02-05] MEDS: LEVOTHYROXINE SOD 0.075 MG TAB PO SCH (04:53)
[2023-02-05] MEDS: MORPHINE 2 MG/ML SYR IV PRN ×4 (04:53→22:21)
[2023-02-05] MEDS ORDERED: SODIUM CHLORIDE 0.9% 10ML INJ IV PRN (05:37)
[2023-02-05] MEDS ORDERED: PANTOPRAZOLE 40MG TABLET PO SCH (09:00)
[2023-02-05] MEDS: ESCITALOPRAM 20 MG TAB PO SCH (09:01)
[2023-02-05] MEDS: LIPASE/PROTEASE/AMYLASE CAP PO SCH ×3 (09:02→20:34)
[2023-02-05] MEDS: OXYCODONE HCL 5 MG TAB PO PRN ×3 (09:02→21:16)
[2023-02-05] MEDS: PANTOPRAZOLE 40 MG INJ IVP SCH ×2 (09:03→20:34)
[2023-02-05] MEDS: GABAPENTIN 400 MG CAP PO SCH ×3 (09:03→20:34)
--- NOTE | 2023-02-05 09:11 | P.PN ---
Date of Service: 02/05/23 Subjective: Feels about the same as yesterday Abdominal pain ~same; +nausea with vomiting continues Dark black stool for ~3 days per patient denies throat pain afebrile ROS: 10 point ROS as noted above, otherwise negative Physical Exam: GEN: Alert, oriented, NAD HEENT: Normal conjunctiva, sclera anicteric,+trach CV: Regular rate and rhythm, no edema Pulm: Nonlabored respirations on room air ABD: Soft,mild-mod RUQ/ epigastric tenderness, nondistended Neuro: Normal speech, normal affect vitals reviewed Problem List: Acute pancreatitis/severe duodenitis h/o laryngeal cancer s/p laryngectomy with reconstruction COPD, chronic Depression Tobacco abuse Acute pancreatitis/severe duodenitis EGD done 01/01 noted severe duodenitis; small hiatal hernia Patient reports dark black stool ongoing for ~[address] abdomen (02/04): residual or recurrent mild acute pancreatitis with adjacent duodenitis Questionable ill-defined 2.3 cm hypoattenuating elongated structure along the pancreatic head GI consulted - Dr. Ross Continue Protonix PRN Analgesics / antiemetics Continue IV fluids Monitor LFTs lipase improved h/o laryngeal cancer s/p laryngectomy with reconstruction continue supportive care. COPD, chronic. Continue home medications Depression. Continue home medications Tobacco abuse. Counseled on need for cessation. Placed on nicoderm patch VTE: SCD Code: Full Dispo: Home Pending further improvement
[2023-02-05 09:51] LABS: Absolute Lymphocytes (CBC) 0.8 K/uL (0.7-4.9); Hematocrit 46.8 % (39.6-49.0); Lymphocytes % 13.6 % (15.3-44.8); MCV 91.7 fL (80-100); MPV 7.2 fL (7.6-11.3); Platelets 199 thou/uL (152-406)
[2023-02-05 10:02] LABS: Albumin 2.8 g/dL (3.4-5.0); Bilirubin Total 2.2 mg/dL (0.2-1.0); Magnesium 1.7 mg/dL (1.6-2.4); Potassium 3.7 mEq/L (3.5-5.1); Protein, Total 5.8 g/dL (6.4-8.2)
[2023-02-06] MEDS: OXYCODONE HCL 5 MG TAB PO PRN ×2 (03:26→08:50)
[2023-02-06] MEDS: MORPHINE 2 MG/ML SYR IV PRN ×4 (04:55→21:15)
[2023-02-06 07:01] LABS: Absolute Lymphocytes (CBC) 0.8 K/uL (0.7-4.9); Lymphocytes % 11.8 % (15.3-44.8); MPV 7.3 fL (7.6-11.3); Platelets 184 thou/uL (152-406); RBC Red Blood Cell Count 5.05 M/uL (4.33-5.43)
[2023-02-06 07:13] LABS: Albumin 2.8 g/dL (3.4-5.0); Bilirubin Total 2.5 mg/dL (0.2-1.0); Magnesium 1.8 mg/dL (1.6-2.4); Potassium 3.7 mEq/L (3.5-5.1); Protein, Total 5.7 g/dL (6.4-8.2)
--- NOTE | 2023-02-06 09:18 | P.PN ---
Date of Service: 02/06/23 Subjective: Feeling a little better today no new / worsening problems abdominal pain/tenderness slowly improving afebrile hungry ROS: 10 point ROS as noted above, otherwise negative Physical Exam: GEN: Alert, oriented, NAD HEENT: Normal conjunctiva, sclera anicteric,+trach CV: Regular rate and rhythm, no edema Pulm: Nonlabored respirations on room air ABD: Soft, mild-mod RUQ/epigastric tenderness, nondistended Neuro: Normal speech, normal affect vitals reviewed Problem List: Acute pancreatitis/severe duodenitis h/o laryngeal cancer s/p laryngectomy with reconstruction COPD, chronic Depression Tobacco abuse Acute pancreatitis/severe duodenitis EGD done 01/01 noted severe duodenitis; small hiatal hernia Patient reports dark black stool ongoing for ~[address] abdomen (02/04): residual or recurrent mild acute pancreatitis with adjacent duodenitis Questionable ill-defined 2.3 cm hypoattenuating elongated structure along the pancreatic head GI consulted - Dr. Ross consider [facility] given recurrent idiopathic pancreatitis consider genetic testing for pancreatitis Continue Protonix PRN Analgesics / antiemetics Continue IV fluids; decreased 02/06 Monitor LFTs lipase improved full liquid diet; advance as tolerated h/o laryngeal cancer s/p laryngectomy with reconstruction continue supportive care. COPD, chronic. Continue home medications Depression. Continue home medications Tobacco abuse. Counseled on need for cessation. Placed on nicoderm patch VTE: SCD Code: Full Dispo: Home Pending further improvement
[2023-02-06] MEDS: GABAPENTIN 400 MG CAP PO SCH ×3 (10:26→21:09)
[2023-02-06] MEDS: LEVOTHYROXINE SOD 0.075 MG TAB PO SCH (10:26)
[2023-02-06] MEDS: ESCITALOPRAM 20 MG TAB PO SCH (10:26)
[2023-02-06] MEDS: LIPASE/PROTEASE/AMYLASE CAP PO SCH ×3 (10:27→21:08)
[2023-02-06] MEDS: PANTOPRAZOLE 40 MG INJ IVP SCH ×2 (10:27→21:08)
--- NOTE | 2023-02-06 10:46 | CON ---
Date of Consultation: 02/05/2023 Reason For Consultation: Recurrent pancreatitis. History Of Present Illness: The patient is a 52-year-old white male with history of recurrent idiopa thic pancreatitis, status post laparoscopic cholecystectomy in approximately 2019. Patient presented to hospital with midepigastric right upper quadrant pain, left upper quadrant pain, 10/10 maximum, d own to possibly 7/10 now, associated with nausea, vomiting, fevers, chills. The patient has had this recurrently by chart review. Past Medical History: Significant for recurrent pancreatitis, status post cholecystectomy in approxi mately 2019. He also has a history of asthma; depression; neuropathy; appendectomy; laryngeal cancer , status post laryngeal resection, reconstruction and tracheostomy; chronic pain; former tobacco user ; surgical hypothyroidism; surgery bilateral on both knees; and thyroidectomy. Social History: He is , 4 children. No tobacco. No alcohol. Family History: Father of colon cancer. Mother of breast cancer. There are no family mem bers with pancreatitis he knows of. Medications: Include Creon, [place], Norvasc, aspirin, doxycycline, Lexapro, iron sulfate, Neurontin, levothyroxine, Synthroid, melatonin, Bactroban ointment. Allergies: LEVAQUIN, AMOXICILLIN, AND IODINE. Physical Examination: Vital Signs: Patient is 5 feet 11 inches, 170 pounds. BMI of 23 kg/sq m. temperature 97.3 degrees Fahrenheit, pulse 67, respirations 16, blood pressure 109/63, O2 saturation 92%. General: He is a well-nourished, well-developed male lying in bed, in no acute distress. HEENT: Normocephalic, atraumatic. Anicteric. Pupils equal, round, and reactive to light, intact. Oropharynx clear. Neck: Supple. No masses. He did have a tracheostomy in his neck. Respiratory: Clear to auscultation bilaterally. Cardiac: Regular rate and rhythm. No gallops. Abdomen: Positive bowel sounds. Soft, nondistended. Mild tenderness in the upper abdomen, mid epig astric, left upper quadrant areas, but no peritoneal or Minor signs. No rebound. Extremities: No clubbing, cyanosis, or edema. 2+ pulses. Neuro: Alert and oriented x3. Grossly nonfocal. 5/5 motor sensation to light touch. Laboratory Data: Patient has a white count of 5.5, hemoglobin of 15.5, hematocrit of 46.8, MCV of 92 , platelet count 199, polys 72%, lymphocytes 14%, monocytes 11%, eosinophils 3%. Has a sodium 141, p otassium 3.7, chloride 110, bicarb 29, BUN of 5, creatinine of 0.7, glucose 97 kg, calcium 8.2, magne sium 1.7, total bilirubin 2.2, AST of 61, ALT of 52, alkaline phosphatase 187, total protein 5.8, alb umin 2.8. Lipase 69, down from [address] abdomen and pelvis revealed stable he terogeneity in the head of the pancreas with adjacent mild fat stranding and residual wall thickening in the second part of duodenum. Findings suggest residual, recurrent pancreatitis with adjacent duo denitis. The patient had EGD on last admission approximately a month or two ago with just duodenitis noted. There is an ill-defined 2.3 cm hypoattenuated elongated structure in the pancreas, may repre sent residua from intrapancreatic collection of fluid. Impression: 1.Pancreatitis with lipase elevated at 113, this is down to normal now 69. CT reveals pancreatitis in the head of the pancreas area. 2.History of recurrent idiopathic pancreatitis, laryngeal cancer, status post laryngectomy and trach eostomy; hypothyroidism; thyroid surgery; appendectomy, bilateral knee surgeries; asthma; chronic obs tructive pulmonary disease; depression; prior tobacco abuse; and neuropathy. Recommendations: Continue IV fluids and continue p.r.n. pain medications, antiemetics. Continue ice chips and advance slowly to clear liquids, full liquids, and then low-fat, low-cholesterol diet. Wo uld also consider consultation to [facility] for this recurrent idiopathic pancreatitis , status post cholecystectomy and no alcohol. No other etiology found. Also consider genetic testing for pancreatitis as well. WS/MODL Voice ID: [id number] Report ID: [id number]
[2023-02-06] MEDS: NA CHLORIDE 0.9% 1,000 ML IV SCH ×2 (15:30→17:00)
[2023-02-07] MEDS: OXYCODONE HCL 5 MG TAB PO PRN ×4 (01:00→22:15)
[2023-02-07] MEDS: NA CHLORIDE 0.9% 1,000 ML IV SCH ×3 (01:01→19:52)
[2023-02-07] MEDS: MORPHINE 2 MG/ML SYR IV PRN ×3 (05:17→19:52)
[2023-02-07] MEDS: LEVOTHYROXINE SOD 0.075 MG TAB PO SCH (05:19)
[2023-02-07 06:16] LABS: Phosphorus 2.4 mg/dL (2.5-4.9); Potassium 3.7 mEq/L (3.5-5.1)
[2023-02-07 08:06] LABS: Albumin 2.7 g/dL (3.4-5.0); Bilirubin Direct 0.3 mg/dL (0-0.2); Bilirubin Indirect, Calculated 0.6 mg/dL (0.2-0.8); Bilirubin Total 0.9 mg/dL (0.2-1.0); Protein, Total 5.7 g/dL (6.4-8.2)
[2023-02-07] MEDS: PANTOPRAZOLE 40 MG INJ IVP SCH ×2 (09:07→19:56)
[2023-02-07] MEDS: GABAPENTIN 400 MG CAP PO SCH ×3 (09:07→19:56)
[2023-02-07] MEDS: ESCITALOPRAM 20 MG TAB PO SCH (09:07)
[2023-02-07] MEDS: POTASS/SODIUM PHOSPHATE 1 PKT POWD.PACK PO SCH ×2 (09:08→10:15)
[2023-02-07] MEDS: LIPASE/PROTEASE/AMYLASE CAP PO SCH ×3 (09:08→19:57)
--- NOTE | 2023-02-07 09:33 | P.PN ---
Date of Service: 02/07/23 Subjective: no acute events overnight abdominal pain slowly improving tolerating liquid diet; no n/v/d Doesn't feel constipated afebrile ROS: 10 point ROS as noted above, otherwise negative Physical Exam: GEN: Alert, oriented, NAD HEENT: Normal conjunctiva, sclera anicteric,+trach CV: Regular rate and rhythm, no edema Pulm: Nonlabored respirations on room air ABD: Soft, mild RUQ/epigastric tenderness, nondistended Neuro: Normal speech, normal affect vitals reviewed Problem List: Acute pancreatitis/severe duodenitis h/o laryngeal cancer s/p laryngectomy with reconstruction COPD, chronic Depression Tobacco abuse Acute pancreatitis/severe duodenitis EGD done 01/01 noted severe duodenitis; small hiatal hernia Patient reports dark black stool ongoing for ~[address] abdomen (02/04): residual or recurrent mild acute pancreatitis with adjacent duodenitis Questionable ill-defined 2.3 cm hypoattenuating elongated structure along the pancreatic head GI consulted - Dr. Ross consider consultation to [facility] given recurrent idiopathic pancreatitis consider genetic testing for pancreatitis Continue Protonix PRN Analgesics / antiemetics Continue IV fluids Monitor LFTs; improving lipase worse 02/07; 67 -> 125 full liquid diet; advance to low fat diet for dinner 02/07 h/o laryngeal cancer s/p laryngectomy with reconstruction continue supportive care. COPD, chronic. Continue home medications Depression. Continue home medications Tobacco abuse. Counseled on need for cessation. Placed on nicoderm patch VTE: SCD Code: Full Dispo: Home Pending further improvement
[2023-02-07] MEDS: ONDANSETRON 4 MG/2 ML VIAL IV PRN (19:53)
[2023-02-08] MEDS: MORPHINE 2 MG/ML SYR IV PRN ×2 (01:24→09:28)
[2023-02-08] MEDS: NA CHLORIDE 0.9% 1,000 ML IV SCH (06:04)
[2023-02-08] MEDS: OXYCODONE HCL 5 MG TAB PO PRN ×2 (06:05→13:34)
[2023-02-08] MEDS: LEVOTHYROXINE SOD 0.075 MG TAB PO SCH (06:05)
[2023-02-08 07:13] LABS: ALT/SGPT 28 U/L (16-61); AST/SGOT 14 U/L (15-37); Albumin 2.6 g/dL (3.4-5.0); Alkaline Phosphatase 137 U/L (45-117); Bicarbonate 32 mEq/L (21-32); Bilirubin Total 0.5 mg/dL (0.2-1.0); Glomerular Filtration Rate 116 ml/min (=/>90); Glucose Level 105 mg/dL (74-106); Lipase 96 U/L (13-75); Magnesium 1.9 mg/dL (1.6-2.4); Phosphorus 3.6 mg/dL (2.5-4.9); Potassium 3.7 mEq/L (3.5-5.1); Protein, Total 5.4 g/dL (6.4-8.2); Sodium Level 146 mEq/L (136-145)
[2023-02-08 07:15] LABS: BUN Blood Urea Nitrogen < 3 mg/dL (7-18)
[2023-02-08 07:56] VITALS: O2SAT 95
[2023-02-08] MEDS: PANTOPRAZOLE 40 MG INJ IVP SCH (09:27)
[2023-02-08] MEDS: GABAPENTIN 400 MG CAP PO SCH ×2 (09:28→13:34)
[2023-02-08] MEDS: LIPASE/PROTEASE/AMYLASE CAP PO SCH ×2 (09:28→13:34)
[2023-02-08] MEDS: ESCITALOPRAM 20 MG TAB PO SCH (09:28)
--- NOTE | 2023-02-08 13:14 | P.PN ---
Date of Service: 02/08/23 Subjective: nausea/vomiting overnight after eating otherwise no new / worsening problems abdominal pain slowly improving ambulating around the floor afebrile ROS: 10 point ROS as noted above, otherwise negative Physical Exam: GEN: Alert, oriented, NAD HEENT: Normal conjunctiva, sclera anicteric,+trach CV: Regular rate and rhythm, no edema Pulm: Nonlabored respirations on room air ABD: Soft, mild RUQ/epigastric tenderness, nondistended Neuro: Normal speech, normal affect vitals reviewed Problem List: Acute pancreatitis/severe duodenitis h/o laryngeal cancer s/p laryngectomy with reconstruction COPD, chronic Depression Tobacco abuse Acute pancreatitis/severe duodenitis EGD done 01/01 noted severe duodenitis; small hiatal hernia Patient reports dark black stool ongoing for ~[address] abdomen (02/04): residual or recurrent mild acute pancreatitis with adjacent duodenitis Questionable ill-defined 2.3 cm hypoattenuating elongated structure along the pancreatic head GI consulted - Dr. Ross consider [facility] given recurrent idiopathic pancreatitis consider genetic testing for pancreatitis Continue Protonix PRN Analgesics / antiemetics Continue IV fluids Monitor LFTs; improving lipase improving 02/08; 125 -> 96 heart healthy / low fat diet h/o laryngeal cancer s/p laryngectomy with reconstruction continue supportive care. COPD, chronic. Continue home medications Depression. Continue home medications Tobacco abuse. Counseled on need for cessation. Placed on nicoderm patch VTE: SCD Code: Full Dispo: Home Pending further improvement
[2023-02-08 16:30] VITALS: BP 131/72; TEMP 97.8
--- NOTE | 2023-02-08 16:41 | P.PN ---
Subjective Date of Service: 02/06/23 Chief Complaint: DEWEY/RUQ/LUQ pain, recurrent idiopathic pancreatitis Subjective: Improving (Less abdominal pain) Review of Systems 10-point ROS is otherwise unremarkable General: Weakness Gastrointestinal: Nausea, Abdominal Pain Physical Examination - Vital Signs Temperature: 97.8 F Blood Pressure: 131/72 Pulse: 65 Respirations: 16 Pulse Ox (%): 95 Assessment And Plan - Current Problems (Diagnosis) (1) Recurrent acute pancreatitis Current Visit: Yes Status: Acute (2) Epigastric abdominal pain Current Visit: Yes Status: Acute (3) RUQ abdominal pain Current Visit: Yes Status: Acute (4) LUQ abdominal pain Current Visit: Yes Status: Acute (5) Nausea & vomiting Current Visit: Yes Status: Acute (6) Abnormal CT of the abdomen Current Visit: Yes Status: Acute - Plan REC: 1) continue IVFs 2) continue prn pain medications & anti-emetics 3) clear liquids 4) cystic fibrous gene test & familial pancreatitis gene tests if never done Physician Review: Patient Assessed, Agree with Above Assessment and Plan
--- NOTE | 2023-02-08 16:44 | P.PN ---
Subjective Date of Service: 02/07/23 Chief Complaint: DEWEY/RUQ/LUQ pain, recurrent idiopathic pancreatitis Subjective: Improving (Tolerating CLs. Less abdominal pain, nausea. No emesis.) Review of Systems General: Weakness (Improved.) Physical Examination - Vital Signs Temperature: 97.8 F Blood Pressure: 131/72 Pulse: 65 Respirations: 16 Pulse Ox (%): 95 - Physical Exam General: Alert, In no apparent distress, Oriented x3, Cooperative HEENT: Atraumatic, Normocephalic, PERRLA, EOMI Neck: Supple Respiratory: Normal air movement Cardiovascular: Normal pulses Gastrointestinal: Non-distended, Tenderness Neurological: Normal speech, Normal strength at 5/5 x4 extr Assessment And Plan - Current Problems (Diagnosis) (1) Recurrent acute pancreatitis Current Visit: Yes Status: Acute Comment: Improved. (2) Epigastric abdominal pain Current Visit: Yes Status: Acute (3) RUQ abdominal pain Current Visit: Yes Status: Acute (4) LUQ abdominal pain Current Visit: Yes Status: Acute (5) Nausea & vomiting Current Visit: Yes Status: Acute (6) Abnormal CT of the abdomen Current Visit: Yes Status: Acute - Plan REC: 1) continue IVFs 2) continue prn pain medications & anti-emetics 3) full liquids 4) cystic fibrous gene test & familial pancreatitis gene tests if never done Physician Review: Patient Assessed, Agree with Above Assessment and Plan
--- NOTE | 2023-02-08 16:45 | P.PN ---
Subjective Date of Service: 02/08/23 Chief Complaint: DEWEY/RUQ/LUQ pain, recurrent idiopathic pancreatitis Subjective: Improving (Feels much better and is going home today.) Review of Systems Unremarkable Physical Examination - Vital Signs Temperature: 97.8 F Blood Pressure: 131/72 Pulse: 65 Respirations: 16 Pulse Ox (%): 95 - Physical Exam General: Alert, In no apparent distress, Oriented x3, Cooperative HEENT: Atraumatic, Normocephalic, PERRLA, EOMI Neck: Supple Respiratory: Clear to auscultation bilaterally Cardiovascular: Normal pulses Gastrointestinal: Soft and benign, No tenderness, No rebound, No guarding Neurological: Normal speech, Normal strength at 5/5 x4 extr Assessment And Plan - Current Problems (Diagnosis) (1) Recurrent acute pancreatitis Current Visit: Yes Status: Acute Comment: Improved. (2) Epigastric abdominal pain Current Visit: Yes Status: Acute (3) RUQ abdominal pain Current Visit: Yes Status: Acute (4) LUQ abdominal pain Current Visit: Yes Status: Acute (5) Nausea & vomiting Current Visit: Yes Status: Acute (6) Abnormal CT of the abdomen Current Visit: Yes Status: Acute - Plan REC: 1) continue IVFs 2) continue prn pain medications & anti-emetics 3) consider [facility] center outpatient evaluation ([facility]) 4) cystic fibrous gene test & familial pancreatitis gene tests if never done Physician Review: Patient Assessed, Agree with Above Assessment and Plan
--- NOTE | 2023-02-09 06:50 | P.DS ---
Admission Date: 02/05/23 Discharge Date: 02/08/23 Disposition: ROUTINE DISCHARGE Discharge Condition: GOOD Reason for Admission: DEWEY/RUQ/LUQ pain, recurrent idiopathic pancreatitis Consultations: GI - Dr. Ross Brief History of Present Illness: 52yo M, PMH: asthma, COPD, pancreatitis, throat cancer status post tracheostomy in 2017 Patient presents to ER via EMS with complaints of abdominal pain. Patient has a history of chronic pancreatitis. Started having abdominal pain for the last 3 days which was worsening progressively and was brought to ER. This is typical of his acute pancreatitis episodes. Could not tolerate a diet associated with nausea and vomiting. Denies any fever or chills. No chest pain or shortness of breath. Pain is located in the upper abdomen but radiates to the back, sharp in quality, 8 out of 10 in severity. Patient already had received morphine twice in the ER without relief . Patient was assessed in the ER and was found to have acute on chronic pancreatitis and was admitted for further management for pain control and management of pancreatitis . Hospital Course: Problem List: Acute pancreatitis/severe duodenitis h/o laryngeal cancer s/p laryngectomy with reconstruction COPD, chronic Depression Tobacco abuse Patient presented with worsening abdominal pain. He was found to have mild acute pancreatitis & adjacent duodenitis noted on CT abdomen. GI was consulted and recommended medical management. Patient had improvement of his symptoms with bowel rest, IV fluids, protonix. Patient was feeling better, abdominal pain improved, tolerating low fat diet and was deemed stable for discharge home. LFTs were noted to be mildly elevated during hospitalization. Discussed with Dr. Ross (GI) and patient deemed stable for discharge home with close GI clinic follow up. Given patients recurrent idiopathic pancreatitis, Dr. Ross recommends f/u with [facility] for further work up. Also consider genetic testing for pancreatitis. Recommend repeat blood work within 1 week to monitor LFTs. Labwork on discharge: Lipase: 96 (normal range 13-75) AST: 14 (normal range 15-37) ALT: 28 (normal range 16-61) Total Bili: 0.5 (normal range 0.2-1.0) Medications: continue home medications, pantoprazole twice daily. Pain medication Follow up: PCP 3-5 days GI clinic in ~2-3 weeks [facility] Physical Exam: GEN: Alert, oriented, NAD HEENT: Normal conjunctiva, sclera anicteric,+trach CV: Regular rate and rhythm, no edema Pulm: Nonlabored respirations on room air ABD: Soft, mild RUQ/epigastric tenderness, nondistended Neuro: Normal speech, normal affect Vital Signs/Physical Exam: Temp Pulse Resp BP Pulse Ox 97.8 F 65 16 131/72 95 02/08/23 17:16 02/08/23 17:16 02/08/23 17:16 02/08/23 17:16 02/08/23 17:16 Laboratory Data at Discharge: WBC 7.10 thou/uL (4.3-10.9) 02/06/23 06:42 Hgb 15.5 g/dL (13.6-17.9) 02/06/23 06:42 Hct 47.0 % (39.6-49.0) 02/06/23 06:42 Plt Count 184 thou/uL (152-406) 02/06/23 06:42 Sodium 146 mEq/L (136-145) H D 02/08/23 06:40 Potassium 3.7 mEq/L (3.5-5.1) 02/08/23 06:40 BUN < 3 mg/dL (7-18) L 02/08/23 06:40 Creatinine 0.61 mg/dL (0.70-1.30) L 02/08/23 06:40 Glucose 105 mg/dL (74-106) 02/08/23 06:40 Phosphorus 3.6 mg/dL (2.5-4.9) 02/08/23 06:40 Magnesium 1.9 mg/dL (1.6-2.4) 02/08/23 06:40 Total Bilirubin 0.5 mg/dL (0.2-1.0) 02/08/23 06:40 AST 14 U/L (15-37) L 02/08/23 06:40 ALT 28 U/L (16-61) 02/08/23 06:40 Alkaline Phosphatase 137 U/L (45-117) H 02/08/23 06:40 Lipase 96 U/L (13-75) H 02/08/23 06:40 Home Medications: Escitalopram [Lexapro*] 20 mg PO DAILY #30 tab 02/16/21 Gabapentin [Neurontin*] 800 mg PO TID 12/11/22 Lipase/Protease/Amylase [Ch[place]o [place] 12,000 Units Capsule] 1 tab PO TID 12/11/22 Levothyroxine [Synthroid*] 150 mcg PO [id number] 12/31/22 Pantoprazole Sodium [Protonix] 40 mg PO BID 30 Days #60 tab 01/02/23 Oxycodone HCl 10 mg PO Q6HP PRN 02/05/23 Physician Discharge Instructions: PROBLEM: PANCREATITIS GOAL: Clear understanding of disease process INSTRUCTIONS: Patient presented with worsening abdominal pain. He was found to have mild acute pancreatitis & adjacent duodenitis noted on CT abdomen. GI was consulted and recommended medical management. Patient had improvement of his symptoms with bowel rest, IV fluids, protonix. Patient was feeling better, abdominal pain improved, tolerating low fat diet and was deemed stable for discharge home. LFTs were noted to be mildly elevated during hospitalization. Discussed with Dr. Ross (GI) and patient deemed stable for discharge home with close GI clinic follow up. Given patients recurrent idiopathic pancreatitis, Dr. Ross recommends f/u with [facility] for further work up. Also consider genetic testing for pancreatitis. Recommend repeat blood work within 1 week to monitor LFTs. Labwork on discharge: Lipase: 96 (normal range 13-75) AST: 14 (normal range 15-37) ALT: 28 (normal range 16-61) Total Bili: 0.5 (normal range 0.2-1.0) Medications: continue home medications, pantoprazole twice daily. Pain medication Follow up: PCP 3-5 days GI clinic in ~2-3 weeks [facility] Diet: as tolerated, GI soft Activity: as tolerated DME DME: Date Ordered: Name of Company: [employer] Services Needed: None Name of Company: Date or Referral: IMMUNIZATION Influenza Vaccine Indicated: No Influenza Vaccine Given: Date Given: Pneumonia Vaccine Indicated: No Pneumonia Vaccine Given: Date Given: Followup: NONE,NONE [Primary Care Provider] -
== END 2023-02-08 17:52 | disposition home or self-care (01) | DRG 440 ==
LOC: ER 19:09 → ERHOLD 02-05 00:48 → 4TH 02-05 01:15
PROVIDERS: ADMIT Family Medicine; ATTEND Hospitalist
DX: K85.00 Idiopathic acute pancreatitis without necrosis or infection (principal); K86.1 Other chronic pancreatitis; K29.80 Duodenitis without bleeding; F32.A Depression, unspecified; J44.9 Chronic obstructive pulmonary disease, unspecified; K44.9 Diaphragmatic hernia without obstruction or gangrene; F17.210 Nicotine dependence, cigarettes, uncomplicated; Z93.0 Tracheostomy status; Z71.6 Tobacco abuse counseling; Z88.6 Allergy status to analgesic agent; Z88.1 Allergy status to other antibiotic agents; Z85.21 Personal history of malignant neoplasm of larynx; Z90.49 Acquired absence of other specified parts of digestive tract; Z91.041 Radiographic dye allergy status; Z91.048 Other nonmedicinal substance allergy status; Z79.899 Other long term (current) drug therapy; Z79.890 Hormone replacement therapy
CPT/HCPCS: 36415; 74176; 80048; 80053; 80076; 83690; 83735; 84100; 85025; 96361; 96374; 96375; 99285; A4216; C9113; J2270; J2405; J7030

== ENCOUNTER 2023-02-17 18:26 | Observation (INO) | payer OTHER ==
--- OUTSIDE RECORDS SUMMARY | 2023-02-17 18:40 | XMS REPORT | Continuity of Care Document ---
:1970 Author Organization [facility] t Address [address] [place] [address] [place] [id number] Care Team Providers Name Role Phone No, Pcp [facility] Primary Care Physician Unavailable BRODIE JANSEN Attending Clinician Unavailable HUA JUSTICE Attending Clinician Unavailable LUCY MEANS Attending Clinician Unavailable LUCY MEANS Attending Clinician Unavailable TOYA GUNTER Attending Clinician Unavailable TOYA GUNTER Attending Clinician Unavailable Lab, Ang - Db Attending Clinician Unavailable Hua Brothers Attending Clinician Doctor Unassigned, Talty Attending Clinician Unavailable Anderson Francisco RN Attending [...] Unavailable CHETNA BARNARD Attending Clinician Unavailable Evon LICENSED MASSAGE THERAPIST, Chetna Attending Clinician BLAIR GALINDO Attending Clinician [...] Clinician Moshe Haney MD Attending Clinician [facility] Attending Clinician Yefri Claudio MD Attending Clinician Shelby Coronel Attending Clinician Yosef Napier MD Attending Clinician Debra Pearce RN Attending Clinician PAM BRIDGES Attending Clinician Unavailable CATALINA COSTA Attending Clinician Unavailable Catalina Costa DO Attending Clinician Anupama LICENSED MASSAGE THERAPIST, Malcolm B Attending Clinician MALCOLM ALTMAN Attending Clinician Unavailable Pob, Adc Lab Main Attending Clinician Unavailable Jez LICENSED MASSAGE THERAPIST, Mike Attending Clinician MIKE STORY Attending Clinician Unavailable Zack INMAN, Nyla Nguyen Attending Clinician [phone] Adri ALBARRAN, aKry Ruiz Attending Clinician KARISHMA TENA Attending Clinician [...] Trevor INMAN, Preston Anna Attending Clinician Jaquelin LICENSED MASSAGE THERAPIST, Eligio Aguilar Attending Clinician Kaela LICENSED MASSAGE THERAPIST, Lizet Ruiz Attending Clinician Maurice Chaudhary MD [...] Number Effective Date Expiration Date [facility] [id number] 2018 MEDICAID 00:00:00 [employer] MEDICARE [id number] 2020 00:00:00 MEDICARE PART A \\T\\ [id number] 2019 B 00:00:00 MEDICAID OF [place] [id number] Problems Condition Condition Condition Status Onset Resolution Last Treating Co mments Source Name Details Category Date Date Treatment Clinician Date Calculus Calculus Disease Active Unive rs of right of right 12-18 ity of kidney kidney 00:00: [address] Elevated Elevated Disease Active Unive rs liver liver 12-18 ity of function function 00:00: [place] tests tests [address] [place] [address] Current Current Disease Active Univers every day every day 12-18 ity of smoker smoker 00:00: [address] Abdominal Abdominal Disease Active Uni vers pain, pain, 8-06 ity of unspecifie unspecifie [place] 00 Medical abdominal abdominal Bran ch location location Obesity Obesity Disease Active Univers (BMI (BMI 8-06 ity of 30-39.9) 30-39.9) 00:00: [place] [facility] Low libido Low libido Disease Active U nivers 6-05 ity of 00:00: [place] [facility] Need for Need for Disease Active Unive rs vaccinatio vaccinatio 6-05 it y of n n 00:00: [place] [facility] Other Other Disease Active Univers seborrheic seborrheic 11-27 it y of dermatitis dermatitis 00:00: [place] [facility] Acquired Acquired Disease Active Unive rs hypothyroi hypothyroi 11-27 it y of dism dism 00:00: [place] [facility] Neuropathy Neuropathy Disease Active U nivers involving involving 8 ity of both lower both lower 00:00: [place] extremitie extremitie 00 Me dical s s Branch Esophagiti Esophagiti Disease Active U nivers s s 11-27 ity of 00:00: [place] [facility] Chronic Chronic Disease Active Univers obstructiv obstructiv 11-27 it y of e e 00:00: [place] pulmonary pulmonary 00 Medi julieta disease, disease, Branch unspecifie unspecifie d COPD d COPD type type Anxiety Anxiety Disease Active Univers and and 11-27 ity of depression depression 00:00: [place] [facility] [place] Encounter Encounter Disease Active Uni vers to to 8 ity of establish establish 00:00: [facility] care care Medical Branch Cellulitis Cellulitis Disease Active 2020-04 U nivers 1-07 ity of 00:00: [place] [facility] Pancreatit Pancreatit Disease Active 2020-04 U nivers is, is, 0-30 ity of recurrent recurrent [place] E46 E46 Disease Active Univers Unspecifie Unspecifie 9-17 it y of d severe d severe 00:00: [place] protein-ca protein-ca 00 De dical orestes orestes 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 Added automatic ally from request for surgery [id number] Acute Acute Disease Active 2019-04 Univers pancreatit pancreatit 0-30 it y of is is 00:00: [place] 00 Medical Branch Epigastric Epigastric Disease Active 2019-04 Overview : Univers pain pain 0-29 Formattin ity of 00:00: g of this [place] 00 note Medical might be Branch different from the original. Added automatic ally from request for surgery [id number] Dysphagia, Dysphagia, Disease Active 2019-04 Overview : Univers unspecifie unspecifie 0-29 Formattin ity of d type d type 00:00: g of this [place] 00 note Medical might be Branch different from the original. Added automatic ally from request for surgery [id number] Pancreatit Pancreatit Disease Active 2019-04 U nivers is is 0-07 ity of 00:00: [place] 00 Medical Branch Dehydratio Dehydratio Disease Active 2020- U nivers n n 0-06 ity of 00:00: [place] 00 Medical Branch Aphonia Aphonia Disease Active 2020-0 Univers 1-13 ity of 00:00: [place] [address] Medical Branch Neck Neck Disease Active 2019- [...] laryngecto 4-16 Emily kes my my 00:00: [facility] 00 Center S/P S/P Disease [...] Laryngeal Problem Active Com mon cancer cancer [facility] Tracheosto Tracheosto Problem Active Arash hernandez my care my care [facility] Chronic Chronic Problem Active Common obstructiv obstructiv Sp amada e e - [facility] pulmonary pulmonary [facility] disease, disease[facility] unspecifie unspecifie Me dical d COPD d COPD Center type type Seasonal Seasonal Problem Active Commo n allergies allergies Spir it - [facility] GERD GERD Problem Active Common without without Spirit esophagiti esophagiti - [facility] s [facility] Essential Essential Problem Active Com mon (primary) (primary) Spir it hypertensi hypertensi - [facility] on on [facility] Polyneurop Polyneurop Problem Active Arash hernandez athy in athy in Spirit diseases diseases - [facility] classified classified [facility] Postablati Postablati Problem Active Arash hernandez ve ve Spirit hypothyroi hypothyroi - [facility] dism dism [facility] Malignant Malignant Problem Active Com mon (primary) (primary) Spir it neoplasm, neoplasm, - CH I unspecifie unspecifie [facility] Reactive Reactive Problem Active Commo n depression depression Sp amada - [facility] Allergies, Adverse Reactions, Alerts Allergy Allergy [...] 5-13 ity of 00:00: [place] 00 Medical [place] Ampicill Propensi Active Hives, Rash 2019-0 C [...] Univers INS Class 4-11 ity of 00:00: [place] [facility] LEVOFLOX DRUG Active Low Hives 2019-0 Univers ACIN INGREDI 4-11 ity of 00:00: [address] Iodine Adverse Active vomiting Common Reaction Spirit - [facility] Social History Social Habit Start Date Stop Date Quantity Comments Source History of tobacco Cigarette Smoker [facility] use [facility] Gender identity Universit y [facility] Sexual orientation [facility] History SDOH [facility] Alcohol Std Drinks [facility] History SDOH [facility] Alcohol Binge Medical Atn ter Tobacco use and 2022-11-13 2022-11-13 Smokeless tobacco Un iversity of exposure 00:00:00 00:00:00 non-user [facility] Exposure to 2022-08-18 2022-08-28 Not sure [facility] SARS-CoV-2 (event) 00:00:00 15:38:00 [facility] History of Social 2022-08-28 2022-08-28 Univers ity of function 00:00:00 00:00:00 [facility] Alcohol Comment 2020-08-22 2020-08-2204/05 of corinna per [facility] 00:00:00 00:00:00 week [facility] Education 2020-01-29 2020-01-29 21 University of 00:00:00 00:00:00 [place] [facility] History SDOH 2020-01-29 2020-01-29 5 University o f Financial 00:00:00 00:00:00 [place] [facility] History SDOH Food 2020-01-29 2020-01-29 1 Univers ity of Worry 00:00:00 00:00:00 [place] [facility] History SDOH Food 2020-01-29 2020-01-29 1 Univers ity of Scarcity 00:00:00 00:00:00 [place] [facility] History SDOH 2020-01-29 2020-01-29 2 [place] [facility] Med 00:00:00 00:00:00 [place] [facility] al [facility] History SDMI 2020-01-29 2020-01-29 2 [place] [facility] Transport Non-Med 00:00:00 00:00:00 [place] M edical [facility] Alcohol intake 2018-07-15 2018-07-15 Current non-drinker [facility] 00:00:[facility] 00:00:00 of alcohol [facility] Center (finding) Tobacco Comment 2018-06-06 2018-06-[address] [facility] 00:00:00 00:00:00 Medical Center History [facility] 2018-06-06 2018-06-[address] [facility] Alcohol Frequency 00:00:00 00:00:00 Medical Center - How often do you have a drink containing alcohol? Sex Assigned At [address] [facility] 00:00[facility]00 00:[facility]:00 Medical Center Smoking Status Start Date Stop Date Source Occasional tobacco 2022-11-13 00:00:00 [facility] y [facility] smoker Medical Branch Ex-smoker 2021-11-27 00:00:00 2021-11-27 [facility] 00:00:00 Medical Branch Medications Ordered Filled Start [...] Until Discontinu ed, Routine ondansetron 2022- Yes [id number] 4mg Take 1 Univers 4 mg 9-01 10-02 tablet by ity of disintegrat 00:00: 04:59 [place] 00 :00 every 8 Medica l (eight) Branch hours as needed for Nausea and Vomiting (N/V) for up to 30 days. ondansetron 2022- Yes [id number] 4mg Take 1 Univers 4 mg 9- 10-02 tablet by ity of disintegrat 00:00: 04:59 [place] tablet 00 :00 every 8 Medica l (eight) Branch hours as needed for Nausea and Vomiting (N/V) for up to 30 days. ondansetron 2022- Yes [id number] 4mg Take 1 Univers 4 mg 9-01 10-02 tablet by ity of disintegrat 00:00: 04:59 [place] 00 :00 every 8 Medica l (eight) Branch hours as needed for Nausea and Vomiting (N/V) for up to 30 days. ondansetron 2022- Yes [id number] 4mg Take 1 Univers 4 mg 9- 10-02 tablet by ity of disintegrat 00:00: 04:59 [place] 00 :00 every 8 Medica l (eight) Branch hours as needed for Nausea and Vomiting (N/V) for up to 30 days. ondansetron 2022- Yes [id number] 4mg Take 1 Univers 4 mg 9-01 10-02 tablet by ity of disintegrat 00:00: 04:59 [place] 00 :00 every 8 Medica l (eight) Branch hours as needed for Nausea and Vomiting (N/V) for up to 30 days. ondansetron 2022- Yes [id number] 4mg Take 1 Univers 4 mg 9-01 10-02 tablet by ity of disintegrat 00:00: 04:59 [place] 00 :00 every 8 Medica l (eight) Branch hours as needed for Nausea and Vomiting (N/V) for up to 30 days. ondansetron 2022- Yes [id number] 4mg Take 1 Univers 4 mg 9-01 10-02 tablet by ity of disintegrat 00:00: 04:59 [place] tablet 00 :00 every 8 Medica l (eight) Branch hours as needed for Nausea and Vomiting (N/V) for up to 30 days. ondansetron 2022- Yes [id number] 4mg Take 1 Univers 4 mg 9- 10-02 tablet by ity of disintegrat 00:00: 04:59 [place] tablet 00 :00 every 8 Medica l (eight) Branch hours as needed for Nausea and Vomiting (N/V) for up to 30 days. ondansetron 2022- Yes [id number] 4mg Take 1 Univers 4 mg 9- 10-02 tablet by ity of disintegrat 00:00: 04:59 [place] tablet 00 :00 every 8 Medica l (eight) Branch hours as needed for Nausea and Vomiting (N/V) for up to 30 days. ondansetron 2022- Yes [id number] 4mg Take 1 Univers 4 mg 9- 10- tablet by ity of disintegrat 00:00: 04:59 [place] tablet 00 :00 every 8 Medica l (eight) Branch hours as needed for Nausea and Vomiting (N/V) for up to 30 days. ondansetron 2022- Yes [id number] 4mg Take 1 Univers 4 mg 9- [...] 1{tbl} Take 1 U nivers -acetaminop 9-04 09-09 tablet by it y of hen [...] 11/29/22 at 0900, Until Discontinu ed escitalopra 2023-0 Yes 20mg 20 mg, Univ ers m oxalate 11-29 Oral, QAM, ity of (LEXAPRO) 14:00: [place] tablet 20 00 on [facility] Medical mg 11/29/22 at Branch 0900, Until Discontinu ed, Routine ARIPiprazol 0 Yes 5mg 5 mg, Unive rs e (ABILIFY) 11-29 Oral, ity of tablet 5 mg 14:00: [place] First dose Medical on [facility] Branch 11/29/22 at 0900, Until Discontinu ed, Routine enoxaparin 0 Yes 40mg 40 [facility] (LOV[facility] 11-29 Subcutaneo ity of injection 14:00: [place], DAILY, [place] 40 mg 00 First dose Medical on [facility] Branch 11/29/22 at 0900, Until Discontinu ed, Routine lipase-prot 0 Yes 1{capsu 1 capsule, Univers ease-amylas 11-29 le} Oral, TID ity of e (CREON) 13:00: MEALS, [place] 12,000-38,0 00 First dose Me dical 00 -60,000 on [facility] unit 11/29/22 at capsule 1 0800, capsule Until Discontinu ed, Routine levothyroxi 0 Yes 150ug 150 mcg, U nivers ne 11-29 Oral, ity of (SYNTHROID) 11:00: QAM-0600, [place] tablet 150 00 First dose Med ical mcg on [facility] Branch 11/29/22 at 0600, Until Discontinu ed, Routine gabapentin 0 Yes 800mg 800 mg, Uni vers (NEURONTIN) 11-29 Oral, TID, it y of tablet 800 01:15: First dose [place] mg 00 on [facility] Medical 11/28/22 at Branch 2015, Until Discontinu ed, Routine albuterol 0 Yes 2{puff} 2 Puff, Un maddie (VENTOLIN) 11-29 Inhalation ity of inhaler 2 00:58: , Q6HPRN, Real as Puff 39 Starting Medical on [facility] Branch 11/28/22 at 1958, Until Discontinu ed, Routine, Wheezing, Shortness of Breath lactated 2022-0 2022- No 1000mL at 200 Univ ers ringers IV 11-28 mL/hr, ity of [...] julieta mg Wed Branch 11/28/22 at 1715, EKNIA morpHINE (4 2022-0 2022- No 4mg 4 mg, Slow Univers mg/mL) 11-28 IV Push, ity of injection 4 22:15: 21:29 ONCE, 1 [place] mg 00 :00 dose, On Medical Wed Branch 11/28/22 at 1715, KENIA ondansetron 2022-0 Yes [id number] 4mg Take 1 Univers 4 mg 8-17 tablet by ity of disintegrat 00:00: mouth [place] ing tablet 00 every 8 Medica l (eight) Branch hours as needed for Nausea and Vomiting (N/V). albuterol 2022-0 Yes [id number] 2{puff} Inhale 2 Univers 90 8-17 Puffs ity of mcg/actuati 00:00: every 6 Real as on inhaler 00 (six) Medical hours as Branch needed for Wheezing or Shortness of Breath. ARIPiprazol 2022-0 Yes [id number] 5mg Take 1 Univers e 5 mg 8-17 tablet by ity of tablet 00:00: mouth in [place] 00 the Medical morning. Branch ondansetron 2022-0 Yes [id number] 4mg Take 1 Univers 4 mg 8-17 tablet by ity of disintegrat 00:00: mouth [place] ing tablet 00 every 8 Medica l (eight) Branch hours as needed for Nausea and Vomiting (N/V). albuterol 2022-0 Yes [id number] 2{puff} Inhale 2 Univers 90 8-17 Puffs ity of mcg/actuati 00:00: every 6 Real as on inhaler 00 (six) Medical hours as Branch needed for Wheezing or Shortness of Breath. ARIPiprazol 3-0 Yes [id number] 5mg Take 1 Univers e 5 mg 8-17 tablet by ity of tablet 00:00: mouth in [place] 00 the Medical morning. Branch ondansetron 2022-0 Yes [id number] 4mg Take 1 Univers 4 mg 8-17 tablet by ity of disintegrat 00:00: mouth [place] ing tablet 00 every 8 Medica l (eight) Branch hours as needed for Nausea and Vomiting (N/V). albuterol 2022-0 Yes [id number] 2{puff} Inhale 2 Univers 90 8-17 Puffs ity of mcg/actuati 00:00: every 6 Real as on inhaler 00 (six) Medical hours as Branch needed for Wheezing or Shortness of Breath. ARIPiprazol 2022-0 Yes [id number] 5mg Take 1 Univers e 5 mg 8-17 tablet by ity of tablet 00:00: mouth in [place] 00 the Medical morning. Branch ondansetron 2022-0 Yes [id number] 4mg Take 1 Univers 4 mg 8-17 tablet by ity of disintegrat 00:00: mouth [place] ing tablet 00 every 8 Medica l (eight) Branch hours as needed for Nausea and Vomiting (N/V). albuterol 2022-0 Yes [id number] 2{puff} Inhale 2 Univers 90 8-17 Puffs ity of mcg/actuati 00:00: every 6 Real as on inhaler 00 (six) Medical hours as Branch needed for Wheezing or Shortness of Breath. ARIPiprazol 2022-0 Yes [id number] 5mg Take 1 Univers e 5 mg 8-17 tablet by ity of tablet 00:00: mouth in [place] 00 the Medical morning. Branch albuterol 2022-0 Yes [id number] 2{puff} Inhale 2 Univers 90 8-17 Puffs ity of mcg/actuati 00:00: every 6 Real as on inhaler 00 (six) Medical hours as Branch needed for Wheezing or Shortness of Breath. ARIPiprazol 2022-0 Yes [id number] 5mg Take 1 Univers e 5 mg 8-17 tablet by ity of tablet 00:00: mouth in [place] 00 the Medical morning. Branch albuterol 2022-0 Yes [id number] 2{puff} Inhale 2 Univers 90 8-17 Puffs ity of mcg/actuati 00:00: every 6 Real as on inhaler 00 (six) Medical hours as Branch needed for Wheezing or Shortness of Breath. ARIPiprazol 2022-0 Yes [id number] 5mg Take 1 Univers e 5 mg 8-17 tablet by ity of tablet 00:00: mouth in [place] 00 the Medical morning. Branch albuterol 2022-0 Yes [id number] 2{puff} Inhale 2 Univers 90 8-17 Puffs ity of mcg/actuati 00:00: every 6 Real as on inhaler 00 (six) Medical hours as Branch needed for Wheezing or Shortness of Breath. ARIPiprazol 2022-0 Yes [id number] 5mg Take 1 Univers e 5 mg 8-17 tablet by ity of tablet 00:00: mouth in [place] 00 the Medical morning. Branch albuterol 2022-0 Yes [id number] 2{puff} Inhale 2 Univers 90 8-17 Puffs ity of mcg/actuati 00:00: every 6 Real as on inhaler 00 (six) Medical hours as Branch needed for Wheezing or Shortness of Breath. ARIPiprazol 2022-0 Yes [id number] 5mg Take 1 Univers e 5 mg 8-17 tablet by ity of tablet 00:00: mouth in [place] 00 the Medical morning. Branch albuterol 2022-0 Yes [id number] 2{puff} Inhale 2 Univers 90 8-17 Puffs ity of mcg/actuati 00:00: every 6 Real as on inhaler 00 (six) Medical hours as Branch needed for Wheezing or Shortness of Breath. ARIPiprazol 2022-0 Yes [id number] 5mg Take 1 Univers e 5 mg 8-17 tablet by ity of tablet 00:00: mouth in [place] 00 the Medical morning. Branch albuterol 2022-0 Yes [id number] 2{puff} Inhale 2 Univers 90 8-17 Puffs ity of mcg/actuati 00:00: every 6 Real as on inhaler 00 (six) Medical hours as Branch needed for Wheezing or Shortness of Breath. ARIPiprazol 2022-0 Yes [id number] 5mg Take 1 Univers e 5 mg 8-17 tablet by ity of tablet 00:00: mouth in [place] 00 the Medical morning. Branch albuterol 2022-0 Yes [id number] 2{puff} Inhale 2 Univers 90 8-17 Puffs ity of mcg/actuati 00:00: every 6 Real as on inhaler 00 (six) Medical hours as Branch needed for Wheezing or Shortness of Breath. ARIPiprazol 2022-0 Yes [id number] 5mg Take 1 Univers e 5 mg 8-17 tablet by ity of tablet 00:00: mouth in [place] 00 the Medical morning. Branch albuterol 2022-0 Yes [id number] 2{puff} Inhale 2 Univers 90 8-17 Puffs ity of mcg/actuati 00:00: every 6 Real as on inhaler 00 (six) Medical hours as Branch needed for Wheezing or Shortness of Breath. ARIPiprazol 2022-0 Yes [id number] 5mg Take 1 Univers e 5 mg 8-17 tablet by ity of tablet 00:00: mouth in [place] 00 the Medical morning. Branch albuterol 2022-0 Yes [id number] 2{puff} Inhale 2 Univers 90 8-17 Puffs ity of mcg/actuati 00:00: every 6 Real as on inhaler 00 (six) Medical hours as Branch needed for Wheezing or Shortness of Breath. ARIPiprazol 2022-0 Yes [id number] 5mg Take 1 Univers e 5 mg 8-17 tablet by ity of tablet 00:00: mouth in [place] 00 the Medical morning. Branch albuterol 0 Yes [id number] 2{puff} Inhale 2 Univers 90 8-17 Puffs ity of mcg/actuati 00:00: every 6 Real as on inhaler 00 (six) Medical hours as Branch needed for Wheezing or Shortness of Breath. ARIPiprazol 2022-0 Yes [id number] 5mg Take 1 Univers e 5 mg 8-17 tablet by ity of tablet 00:00: mouth in [place] 00 the Medical morning. Branch albuterol 2022-0 Yes [id number] 2{puff} Inhale 2 Univers 90 8-17 Puffs ity of mcg/actuati 00:00: every 6 Real as on inhaler 00 (six) Medical hours as Branch needed for Wheezing or Shortness of Breath. ARIPiprazol 2022-0 Yes [id number] 5mg Take 1 Univers e 5 mg 8-17 tablet by ity of tablet 00:00: mouth in [place] 00 the Medical morning. Branch albuterol 2022-0 Yes [id number] 2{puff} Inhale 2 Univers 90 8-17 Puffs ity of mcg/actuati 00:00: every 6 Real as on inhaler 00 (six) Medical hours as Branch needed for Wheezing or Shortness of Breath. ARIPiprazol Yes [id number] 5mg Take 1 Univers e 5 mg 8-17 tablet by ity of tablet 00:00: mouth in [place] 00 the Medical morning. Branch albuterol Yes [id number] 2{puff} Inhale 2 Univers 90 8-17 Puffs ity of mcg/actuati 00:00: every 6 Real as on inhaler 00 (six) Medical hours as Branch needed for Wheezing or Shortness of Breath. ARIPiprazol Yes [id number] 5mg Take 1 Univers e 5 mg 8-17 tablet by ity of tablet 00:00: mouth in [place] 00 the Medical morning. Branch ondansetron 2022- No [id number] 4mg Take 1 Univers 4 mg 8-17 11-30 tablet by ity of disintegrat 00:00: 00:00 [place] tablet 00 :00 every 8 Medica l (eight) Branch hours as needed for Nausea and Vomiting (N/V). HYDROcodone 2022- No [id number] 1{tbl} Take 1 [...] 4647 1{tbl} Take 1 U nivers -acetaminop 11-14-24 tablet by it y of hen 5-325 00:00: 04:59 mouth [place] mg tablet 00 :00 every 6 Medical (six) Branch hours as needed for Pain (scale 7-10) for up to 7 days. Indication s: acute pain HYDROcodone 2022- No [id number] 1{tbl} Take 1 U nivers -acetaminop 11-14-24 tablet by it y of hen 5-325 00:00: 04:59 mouth [place] mg tablet 00 :00 every 6 Medical (six) Branch hours as needed for Pain (scale 7-10) for up to 7 days. Indication s: acute pain enoxaparin 0 Yes 40mg 40 mg, Unive rs (LOVENOX) 8-15 Subcutaneo ity of injection 22:00: us, DAILY Real as 40 mg 00 AT 1700, Medical First dose Branch on Sat11/13/22 at 1700, Until Discontinu ed, Routine omeprazole 0 Yes 20mg 20 mg, Unive rs (PRILOSEC) 8-15 Oral, ity of capsule 20 14:00: DAILY, [place] mg 00 First dose Medical on [facility] 11/13/22 at 0900, Until Discontinu ed escitalopra 2022-0 Yes 20mg 20 mg, Univ ers m oxalate 8-15 Oral, QAM, ity of (LEXAPRO) 14:00: First dose [place] tablet 20 00 on [facility] mg 11/13/22 at Branch 0900, Until Discontinu ed, Routine ARIPiprazol 2022-0 Yes 5mg 5 mg, Unive rs e (ABILIFY) 8-15 Oral, ity of tablet 5 mg 14:00: [place]ILY, [place] First dose Medical on [facility] 11/13/22 at 0900, Until Discontinu ed, Routine gabapentin 2022-0 Yes 800mg 800 mg, Uni vers (NEURONTIN) 8-15 Oral, BID, it y of tablet 800 13:00: First dose [place] mg 00 on [facility] 11/13/22 at Branch 0800, Until Discontinu ed, Routine lipase-prot 2022-0 Yes 1{capsu 1 capsule, Univers ease-amylas 11-13 le} Oral, TID ity of e (CREON) 13:00: MEALS, [place] 12,000-38,0 00 First dose Me dical 00 -60,000 on Sat [place] unit 11/13/22 at capsule 1 0800, capsule Until Discontinu ed, Routine levothyroxi Yes 150ug 150 mcg, U nivers ne 11-13 Oral, ity of (SYNTHROID) 11:00: QAM-0600, [place] tablet 150 00 First dose Med ical mcg on Branch 11/13/22 at 0600, Until Discontinu ed, [...] Real as Puff 30 Starting Medical on [facility] 11/13/22 at 0332, Until Discontinu ed, Routine, Wheezing, Shortness of Breath ondansetron 0 Yes 4mg 4 mg, Slow Univers (ZOFRAN 11-13 IV Push, ity of (PF)) 08:29: Q6HPRN, [place] injection 4 35 Starting Medi julieta mg on Sat [place] 11/13/22 at 0329, Until Discontinu ed, Routine, Nausea and Vomiting (N/V) morpHINE (2 2022- No 2mg 2 mg, Slow Univers mg/mL) 11-13 0816 IV Push, ity of injection 2 08:29: 08:28 Q4HPRN, [place] mg 25 :25 Starting Medical on Sat11/13/22 at 0329, Until Sat11/14/22 at 0328, Routine, Pain (scale 7-10) HYDROcodone 2022-0 202- No 1{tbl} 1 tablet, Univers -acetaminop 11-13 Oral, ity of hen (NORCO 08:29: 08:28 Q6HPRN, [place] as 5) 5-325 mg 21 :21 Starting Medi julieta tablet 1 on Sat [place] tablet 11/13/22 at 0329, Until [place] 11/15/22 at 0328, Routine, Pain (scale 4-6) acetaminoph Yes 650mg 650 mg, Un m[place]ie en 11-13 Oral, ity of (TYLENOL) 08:29: Q6HPRN, [place] tablet 650 16 Starting Medic al mg on Sat Branch 11/13/22 at 0329, Until Discontinu ed, Routine, Pain (scale 1-3) NaCl 0.9% 2022- No 1000mL at 100 Uni vers (NS) IV 11-13 mL/hr, ity of infusion 07:00: 14:50 [place]venou [place] 1,000 mL 00 :31 s, [facility] , Starting on Sat11/13/22 at 0200, Until Sat11/14/22 at 0950, KEN[place] ondansetron 2022- No 4mg 4 mg, Slow Univers (ZOFRAN 11-13 IV Push, ity of (PF)) 04:30: 04:29 ONCE, 1 [place] injection 4 00 :00 dose, On Medi julieta mg [facility] 11/12/22 at 2330, KENIA morpHINE (2 2022- No 2mg 2 mg, Slow Univers mg/mL) 11-13 IV Push, ity of injection 2 04:30: 04:31 ONCE, 1 [place] mg 00 :00 dose, On Medical [facility] Branch 11/12/22 at 2330, STAT ondansetron 2022- No 4mg 4 mg, Slow Univers (ZOFRAN 11-13 IV Push, ity of (PF)) 02:15: 02:25 ONCE, 1 [place] injection 4 00 :00 dose, On Medi julieta mg [facility] 11/12/22 at 2115, KENIA FENTanyl PF 2022-2022- No 25ug 25 mcg, Un maddie (SUBLIMAZE 11-13 Slow IV ity o f (PF)) 02:15: 02:25 Push, [place] injection 00 :00 ONCE, 1 Medical 25 mcg dose, On Branch 11/12/22 at 2115, STAT HYDROcodone No 4647 1{tbl} Take 1 U [...] 4647 1{tbl} Take 1 U nivers -acetaminop 11-0616 tablet by it y of hen 5-325 00:00: 04:59 mouth [place] mg tablet 00 :00 every 6 Medical (six) Branch hours as needed for Pain (scale 4-6) for up to 7 days. Indication s: acute pain HYDROcodone 2022-0 2022- No 4647 1{tbl} Take 1 U nivers -acetaminop 11-0616 tablet by it y of hen 5-325 00:00: 00:00 mouth [place] mg tablet 00 :00 every 6 Medical (six) Branch hours as needed for Pain (scale 4-6) for up to 7 days. Indication s: acute pain morpHINE (4 2022-0 Yes 2mg 2 mg, Slow Univers mg/mL) 11-05 IV Push, ity of injection 2 18:12: Q6HPRN, [place] mg 29 Starting Medical on Sat [place] 11/05/22 at 1312, Until Discontinu ed, Routine, Pain (scale 7-10) omeprazole 2022-0 Yes 40mg 40 mg, Unive rs (PRILOSEC) 11-05 Oral, ity of capsule 40 14:00: DAILY, [place] mg 00 First dose Medical on Sat [place] 11/05/22 at 0900, Until Discontinu ed escitalopra 2022-0 Yes 20mg 20 mg, Univ ers m oxalate 11-05 Oral, QAM, ity of (LEXAPRO) 14:00: First dose [place] tablet 20 00 on [facility] Medical mg 11/05/22 at Branch 0900, Until Discontinu ed, Routine ARIPiprazol 2022-0 Yes 5mg 5 mg, Unive rs e (ABILIFY) 11-05 Oral, ity of tablet 5 mg 14:00: DAILY, [place] 00 First dose Medical on Sat [place] 11/05/22 at 0900, Until Discontinu ed, Routine enoxaparin 2022-0 Yes 40mg 40 mg, Unive rs (LOVENOX) 11-05 Subcutaneo ity of injection 14:00: us, DAILY, [place] 40 mg 00 First dose Medical on [facility] Branch 11/05/22 at 0900, Until Discontinu ed, Routine gabapentin Yes 800mg 800 mg, Uni vers (NEURONTIN) 11-05 Oral, TID, it y of tablet 800 13:00: First dose [place] mg 00 on [facility] 11/05/22 at Branch 0800, Until Discontinu ed, Routine lipase-prot Yes 1{capsu 1 capsule, Univers ease-amylas 11-05 le} Oral, TID ity of e (CREON) 13:00: MEALS, [place] 12,000-38,0 00 First dose Me dical 00 -60,000 on [facility] unit 11/05/22 at capsule 1 0800, capsule Until Discontinu ed, Routine levothyroxi Yes 150ug 150 mcg, U nivers ne 11-05 Oral, ity of (SYNTHROID) 11:00: QAM-0600, [place] tablet 150 00 First dose Med ical mcg on [facility] 11/05/22 at 0600, Until Discontinu ed, Routine albuterol Yes 2{puff} 2 Puff, Un maddie (VENTOLIN) 11-05 Inhalation ity of inhaler 2 08:49: , Q6HPRN, [place] Puff 30 Starting Medical on [facility] 11/05/22 at 0349, Until Discontinu ed, Routine, Wheezing, Shortness of Breath atorvastati 2022-0 2022- No 80mg Take 80 mg Univers n 80 mg 11-05 08-06 by mouth ity of tablet 03:50: 00:00 at [place] 46 :00 bedtime. Medical Branch nicotine Yes 1{patch 1 Patch, Un maddie (NICODERM) 11-05 } Topical, ity o f 14 mg/24 hr 02:30: Administer [place] patch 1 00 over 24 Medical Patch Hours, Branch Q24H, First dose on [place] 11/04/22 at 2130, Until Discontinu ed, Routine varenicline 0 Yes [id number] 1mg Take 1 Univers (CHANTIX) 1 11-05 tablet by ity of mg tablet 00:00: [place] 00 the Medical morning Branch and 1 tablet in the evening. varenicline 0 Yes [id number] 1mg Take 1 Univers (CHANTIX) 1 8- tablet by ity of mg tablet 00:00: [place] 00 the Medical morning Branch and 1 tablet in the evening. varenicline 0 2022- No [id number] 1mg Take 1 Univers (CHANTIX) 1 - 07-25 tablet by it y of mg [...] 4 09 Starting Medi julieta mg on [place] 11/04/22 at 1706, Until Discontinu ed, [...] :23 Starting Medi julieta tablet 1 on [place] Branch tablet 11/04/22 at 1705, Until 11/06/22 at 1704, Routine, Pain (scale 4-6) morpHINE (4 2022- No 4mg 4 mg, Slow Univers mg/mL) 11-04- IV Push, ity of injection 4 20:00: 20:22 ONCE, 1 [place] mg 00 :00 dose, On Medical 11/04/22 Branch at 1500, STAT famotidine 2022- No 20mg 20 mg, Univ ers (PEPCID 11-04 Slow IV ity of (PF)) 20:00: 20:22 Push, [place] injection 00 :00 ONCE, 1 Medical 20 mg dose, On Branch 11/04/22 at 1500, KENIA NaCl 0.9% 0 2022- No 1000mL at 999 Uni vers (NS) bolus 11-04 mL/hr, ity of infusion 19:30: 23:27 1,000 mL, [place] 1,000 mL 00 :00 IV Medical Piggyback, [place] ONCE, 1 dose, On 11/04/22 at 1430, STAT NaCl 0.9% 2022-0 2022- No 1000mL at 999 Uni vers (NS) bolus 11-04 mL/hr, ity of infusion 18:30: 19:53 1,000 mL, [place] 1,000 mL 00 :00 IV Medical Piggyback, [place] ONCE, 1 dose, On 11/04/22 at 1330, STAT morpHINE (4 2022- No 6mg 6 mg, Slow Univers mg/mL) 11-04 IV Push, ity of injection 6 18:00: 17:56 ONCE, 1 [place] mg 00 :00 dose, On Medical 11/04/22 Branch at 1300, STAT ondansetron 0 2022- No 8mg 8 mg, Slow Univers (ZOFRAN 11-04 IV Push, ity of (PF)) 17:45: 17:56 ONCE, 1 [place] injection 8 00 :00 dose, On Medi julieta mg 11/04/22 Branch at 1245, KENIA ESCITALOPRA 2022-0 Yes [id number] TAKE ONE Univers M OXALATE 8-02 TABLET BY ity o f 20 mg 00:00: MOUTH [place] tablet 00 EVERY Medical MORNING Branch ESCITALOPRA 2022-0 Yes [id number] TAKE ONE Univers M OXALATE 8-02 TABLET BY ity o f 20 mg 00:00: MOUTH [place] tablet 00 EVERY Medical MORNING Branch ESCITALOPRA 2023-0 Yes [id number] TAKE ONE Univers M OXALATE 8-02 TABLET BY ity o f 20 mg 00:00: MOUTH [place] tablet 00 EVERY Medical MORNING Branch ESCITALOPRA Yes [id number] TAKE ONE Univers M OXALATE 8-02 TABLET BY ity o f 20 mg 00:00: MOUTH [place] tablet 00 EVERY Medical MORNING Branch ESCITALOPRA Yes [id number] TAKE ONE Univers M OXALATE 8-02 TABLET BY ity o f 20 mg 00:00: MOUTH [place] tablet 00 EVERY Medical MORNING Branch ESCITALOPRA Yes [id number] TAKE ONE Univers M OXALATE 8-02 TABLET BY ity o f 20 mg 00:00: MOUTH [place] tablet 00 EVERY Medical MORNING Branch ESCITALOPRA Yes [id number] TAKE ONE Univers M OXALATE 8-02 TABLET BY ity o f 20 mg 00:00: MOUTH [place] tablet 00 EVERY Medical MORNING Branch ESCITALOPRA Yes [id number] TAKE ONE Univers M OXALATE 8-02 TABLET BY ity o f 20 mg 00:00: MOUTH [place] tablet 00 EVERY Medical MORNING Branch ESCITALOPRA Yes [id number] TAKE ONE Univers M OXALATE 8-02 TABLET BY ity o f 20 mg 00:00: MOUTH [place] tablet 00 EVERY Medical MORNING Branch ESCITALOPRA Yes [id number] TAKE ONE Univers M OXALATE 8-02 TABLET BY ity o f 20 mg 00:00: MOUTH [place] tablet 00 EVERY Medical MORNING Branch ESCITALOPRA Yes [id number] TAKE ONE Univers M OXALATE 8-02 TABLET BY ity o f 20 mg 00:00: MOUTH [place] tablet 00 EVERY Medical MORNING Branch ESCITALOPRA 2022- Yes [id number] TAKE ONE Univers M OXALATE 8-02 TABLET BY ity o f 20 mg 00:00: MOUTH [place] tablet 00 EVERY Medical MORNING Branch ESCITALOPRA Yes [id number] TAKE ONE Univers M OXALATE 8-02 TABLET BY ity o f 20 mg 00:00: MOUTH [place] tablet 00 EVERY Medical MORNING Branch ESCITALOPRA Yes [id number] TAKE ONE Univers M OXALATE 8-02 TABLET BY ity o f 20 mg 00:00: MOUTH [place] tablet 00 EVERY Medical MORNING Branch ESCITALOPRA Yes [id number] TAKE ONE Univers M OXALATE 8-02 TABLET BY ity o f 20 mg 00:00: MOUTH [place] tablet 00 EVERY Medical MORNING Branch ESCITALOPRA Yes [id number] TAKE ONE Univers M OXALATE 8-02 TABLET BY ity o f 20 mg 00:00: MOUTH [place] tablet 00 EVERY Medical MORNING Branch ESCITALOPRA Yes [id number] TAKE ONE Univers M OXALATE 8-02 TABLET BY ity o f 20 mg 00:00: MOUTH [place] tablet 00 EVERY Medical MORNING Branch ESCITALOPRA Yes [id number] TAKE ONE Univers M OXALATE 8-02 TABLET BY ity o f 20 mg 00:00: MOUTH [place] tablet 00 EVERY Medical MORNING Branch ESCITALOPRA Yes [id number] TAKE ONE Univers M OXALATE 8-02 TABLET BY ity o f 20 mg 00:00: MOUTH [place] tablet 00 EVERY Medical MORNING Branch ESCITALOPRA Yes [id number] TAKE ONE Univers M OXALATE 8-02 TABLET BY ity o f 20 mg 00:00: MOUTH [place] tablet 00 EVERY Medical MORNING Branch ESCITALOPRA Yes [id number] TAKE ONE Univers M OXALATE 8-02 TABLET BY ity o f 20 mg 00:00: MOUTH [place] tablet 00 EVERY Medical MORNING Branch ESCITALOPRA Yes [id number] TAKE ONE Univers M OXALATE 8-02 TABLET BY ity o f 20 mg 00:00: MOUTH [place] tablet 00 EVERY Medical MORNING Branch ESCITALOPRA Yes [id number] TAKE ONE Univers M OXALATE 8-02 TABLET BY ity o f 20 mg 00:00: MOUTH [place] tablet 00 EVERY Medical MORNING Branch ESCITALOPRA Yes [id number] TAKE ONE Univers M OXALATE 8-02 TABLET BY ity o f 20 mg 00:00: MOUTH [place] tablet 00 EVERY Medical MORNING Branch ESCITALOPRA Yes [id number] TAKE ONE Univers M OXALATE 8-02 TABLET BY ity o f 20 mg 00:00: MOUTH [place] tablet 00 EVERY Medical MORNING Branch ESCITALOPRA Yes [id number] TAKE ONE Univers M OXALATE 8-02 TABLET BY ity o f 20 mg 00:00: MOUTH [place] tablet 00 EVERY Medical MORNING Branch ESCITALOPRA Yes [id number] TAKE ONE Univers M OXALATE 8-02 TABLET BY ity o f 20 mg 00:00: MOUTH [place] tablet 00 EVERY Medical MORNING Branch ESCITALOPRA Yes [id number] TAKE ONE Univers M OXALATE 10-31 TABLET BY ity o f 20 mg 00:00: MOUTH [place] tablet 00 EVERY Medical MORNING Branch buPROPion Yes [id number] 1{tbl} Take 1 Univers HCL, 7-25 tablet by ity of smoking 00:00: mouth in [facility], 150 00 the Medical mg Tb12 morning. Branch Then in 3 days take one tablet by mouth twice a day, if the dose is too high just take once daily buPROPion Yes [id number] 1{tbl} Take 1 Univers HCL, 7-25 tablet by ity of smoking 00:00: mouth in [facility], 150 00 the Medical mg Tb12 morning. Branch Then in 3 days take one tablet by mouth twice a day, if the dose is too high just take once daily buPROPion Yes [id number] 1{tbl} Take 1 Univers HCL, 7-25 tablet by ity of smoking 00:00: mouth in [facility], 150 00 the Medical mg Tb12 morning. Branch Then in 3 days take one tablet by mouth twice a day, if the dose is too high just take once daily buPROPion 2022- No [id number] 1{tbl} Take 1 Univers HCL, 7-25 08-06 tablet by ity of smoking 00:00: 00:00 mouth in [facility], 150 00 :00 the Medical mg Tb12 morning. Branch Then in 3 days take one tablet by mouth twice a day, if the dose is too high just take once daily varenicline Yes [id number] Take one Univers (CHANTIX 7-13 0.5mg tab ity of STARTING 00:00: by mouth [place] MONTH BOX) 00 once daily Med ical 0.5 mg for 3 Branch (11)- 1 mg days, then (42) tablet one 0.5mg tab twice daily for 4 days, then one 1mg tab twice daily. albuterol Yes [id number] 2{puff} Inhale 2 Univers 90 7-13 Puffs ity of mcg/actuati 00:00: every 6 [place] on inhaler 00 (six) Medical hours as Branch needed for Wheezing or Shortness of Breath. varenicline Yes [id number] Take one Univers (CHANTIX 7-13 0.5mg tab ity of STARTING 00:00: by mouth [facility] BOX) 00 once daily Med ical 0.5 mg for 3 Branch (11)- 1 mg days, then (42) tablet one 0.5mg tab twice daily for 4 days, then one 1mg tab twice daily. albuterol Yes [id number] 2{puff} Inhale 2 Univers 90 7-13 Puffs ity of mcg/actuati 00:00: every 6 [place] on inhaler 00 (six) Medical hours as Branch needed for Wheezing or Shortness of Breath. albuterol Yes [id number] 2{puff} Inhale 2 Univers 90 7-13 Puffs ity of mcg/actuati 00:00: every 6 [place] on inhaler 00 (six) Medical hours as Branch needed for Wheezing or Shortness of Breath. albuterol Yes [id number] 2{puff} Inhale 2 Univers 90 7-13 Puffs ity of mcg/actuati 00:00: every 6 [place] on inhaler 00 (six) Medical hours as Branch needed for Wheezing or Shortness of Breath. albuterol Yes [id number] 2{puff} Inhale 2 Univers 90 7-13 Puffs ity of mcg/actuati 00:00: every 6 [place] on inhaler 00 (six) Medical hours as Branch needed for Wheezing or Shortness of Breath. albuterol Yes [id number] 2{puff} Inhale 2 Univers 90 7-13 Puffs ity of mcg/actuati 00:00: every 6 [place] on inhaler 00 (six) Medical hours as Branch needed for Wheezing or Shortness of Breath. albuterol Yes [id number] 2{puff} Inhale 2 Univers 90 7-13 Puffs ity of mcg/actuati 00:00: every 6 [place] on inhaler 00 (six) Medical hours as Branch needed for Wheezing or Shortness of Breath. albuterol Yes [id number] 2{puff} Inhale 2 Univers 90 7-13 Puffs ity of mcg/actuati 00:00: every 6 [place] on inhaler 00 (six) Medical hours as Branch needed for Wheezing or Shortness of Breath. albuterol Yes [id number] 2{puff} Inhale 2 Univers 90 7-13 Puffs ity of mcg/actuati 00:00: every 6 [place] on inhaler 00 (six) Medical hours as Branch needed for Wheezing or Shortness of Breath. albuterol Yes [id number] 2{puff} Inhale 2 Univers 90 7-13 Puffs ity of mcg/actuati 00:00: every 6 [place] on inhaler 00 (six) Medical hours as Branch needed for Wheezing or Shortness of Breath. albuterol Yes [id number] 2{puff} Inhale 2 Univers 90 7-13 Puffs ity of mcg/actuati 00:00: every 6 [place] on inhaler 00 (six) Medical hours as Branch needed for Wheezing or Shortness of Breath. albuterol Yes [id number] 2{puff} Inhale 2 Univers 90 7-13 Puffs ity of mcg/actuati 00:00: every 6 [place] on inhaler 00 (six) Medical hours as Branch needed for Wheezing or Shortness of Breath. albuterol Yes [id number] 2{puff} Inhale 2 Univers 90 7-13 Puffs ity of mcg/actuati 00:00: every 6 [place] on inhaler 00 (six) Medical hours as Branch needed for Wheezing or Shortness of Breath. albuterol Yes [id number] 2{puff} Inhale 2 Univers 90 7-13 Puffs ity of mcg/actuati 00:00: every 6 [place] on inhaler 00 (six) Medical hours as Branch needed for Wheezing or Shortness of Breath. albuterol 2022- No [id number] 2{puff} Inhale 2 Univers 90 7-13 08-17 Puffs ity of mcg/actuati 00:00: 00:00 every 6 [place] on inhaler 00 :00 (six) Medical hours as Branch needed for Wheezing or Shortness of Breath. albuterol 2022- No [id number] 2{puff} Inhale 2 Univers 90 7-13 08-17 Puffs ity of mcg/actuati 00:00: 00:00 every 6 [place] on inhaler 00 :00 (six) Medical hours as Branch needed for Wheezing or Shortness of Breath. varenicline 2022- No [id number] Take one Univers (CHANTIX 713 07-25 0.5mg tab ity o f STARTING 00:00: 00:00 by mouth [place] MONTH BOX) 00 :00 once daily Med ical 0.5 mg for 3 Branch (11)- 1 mg days, then (42) tablet one 0.5mg tab twice daily for 4 days, then one 1mg tab twice daily. CREON Yes [id number] TAKE ONE Uni vers 12,000-38,0 7-12 CAPSULE BY it y of 00:00: MOUTH [place] unit 00 EVERY Medical capsule MORNING , Branch ONE CAPSULE AT NOON AND 1 CAPSULE IN THE EVENING WITH MEALS CREON Yes [id number] TAKE ONE Uni vers 12,000-38,0 7-12 CAPSULE BY it y of 00:00: MOUTH [place] unit 00 EVERY Medical capsule MORNING , Branch ONE CAPSULE AT NOON AND 1 CAPSULE IN THE EVENING WITH MEALS CREON Yes [id number] TAKE ONE Uni vers 12,000-38,0 7-12 CAPSULE BY it y of 00:00: MOUTH [place] unit 00 EVERY Medical capsule MORNING , Branch ONE CAPSULE AT NOON AND 1 CAPSULE IN THE EVENING WITH MEALS CREON Yes [id number] TAKE ONE Uni vers 12,000-38,0 7-12 CAPSULE BY it y of 00:00: MOUTH [place] unit 00 EVERY Medical capsule MORNING , Branch ONE CAPSULE AT NOON AND 1 CAPSULE IN THE EVENING WITH MEALS CREON Yes [id number] TAKE ONE Uni vers 12,000-38,0 7-12 CAPSULE BY it y of 00:00: MOUTH [place] unit 00 EVERY Medical capsule MORNING , Branch ONE CAPSULE AT NOON AND 1 CAPSULE IN THE EVENING WITH MEALS CREON Yes [id number] TAKE ONE Uni vers 12,000-38,0 7-12 CAPSULE BY it y of 00:00: MOUTH [place] unit 00 EVERY Medical capsule MORNING , Branch ONE CAPSULE AT NOON AND 1 CAPSULE IN THE EVENING WITH MEALS CREON 2022-0 Yes [id number] TAKE ONE Uni vers 12,000-38,0 7-12 CAPSULE BY it y of 00:00: MOUTH [place] unit 00 EVERY Medical capsule MORNING , Branch ONE CAPSULE AT NOON AND 1 CAPSULE IN THE EVENING WITH MEALS CREON 0 Yes [id number] TAKE ONE Uni vers 12,000-38,0 7-12 CAPSULE BY it y of 00:00: MOUTH [place] unit 00 EVERY Medical capsule MORNING , Branch ONE CAPSULE AT NOON AND 1 CAPSULE IN THE EVENING WITH MEALS CREON 0 Yes [id number] TAKE ONE Uni vers 12,000-38,0 7-12 CAPSULE BY it y of 00:00: MOUTH [place] unit 00 EVERY Medical capsule MORNING , Branch ONE CAPSULE AT NOON AND 1 CAPSULE IN THE EVENING WITH MEALS CREON 0 Yes [id number] TAKE ONE Uni vers 12,000-38,0 7-12 CAPSULE BY it y of 00:00: MOUTH [place] unit 00 EVERY Medical capsule MORNING , Branch ONE CAPSULE AT NOON AND 1 CAPSULE IN THE EVENING WITH MEALS CREON 0 Yes [id number] TAKE ONE Uni vers 12,000-38,0 7-12 CAPSULE BY it y of 00:00: MOUTH [place] unit 00 EVERY Medical capsule MORNING , Branch ONE CAPSULE AT NOON AND 1 CAPSULE IN THE EVENING WITH MEALS CREON 0 Yes [id number] TAKE ONE Uni vers 12,000-38,0 7-12 CAPSULE BY it y of 00:00: MOUTH [place] unit 00 EVERY Medical capsule MORNING , Branch ONE CAPSULE AT NOON AND 1 CAPSULE IN THE EVENING WITH MEALS CREON 0 Yes [id number] TAKE ONE Uni vers 12,000-38,0 7-12 CAPSULE BY it y of 00:00: MOUTH [place] unit 00 EVERY Medical capsule MORNING , Branch ONE CAPSULE AT NOON AND 1 CAPSULE IN THE EVENING WITH MEALS CREON 2022-0 Yes [id number] TAKE ONE Uni vers 12,000-38,0 7-12 CAPSULE BY it y of 60 00:00: MOUTH [place] unit 00 EVERY Medical capsule MORNING , Branch ONE CAPSULE AT NOON AND 1 CAPSULE IN THE EVENING WITH MEALS CREON Yes [id number] TAKE ONE Uni vers 12,000-38,0 7-12 CAPSULE BY it y of 00:00: MOUTH [place] unit 00 EVERY Medical capsule MORNING , Branch ONE CAPSULE AT NOON AND 1 CAPSULE IN THE EVENING WITH MEALS CREON Yes [id number] TAKE ONE Uni vers 12,000-38,0 7-12 CAPSULE BY it y of 00:00: MOUTH [place] unit 00 EVERY Medical capsule MORNING , Branch ONE CAPSULE AT NOON AND 1 CAPSULE IN THE EVENING WITH MEALS CREON Yes [id number] TAKE ONE Uni vers 12,000-38,0 7-12 CAPSULE BY it y of 00:00: MOUTH [place] unit 00 EVERY Medical capsule MORNING , Branch ONE CAPSULE AT NOON AND 1 CAPSULE IN THE EVENING WITH MEALS CREON Yes [id number] TAKE ONE Uni vers 12,000-38,0 7-12 CAPSULE BY it y of 00:00: MOUTH [place] unit 00 EVERY Medical capsule MORNING , Branch ONE CAPSULE AT NOON AND 1 CAPSULE IN THE EVENING WITH MEALS CREON Yes [id number] TAKE ONE Uni vers 12,000-38,0 7-12 CAPSULE BY it y of 00:00: MOUTH [place] unit 00 EVERY Medical capsule MORNING , Branch ONE CAPSULE AT NOON AND 1 CAPSULE IN THE EVENING WITH MEALS CREON Yes [id number] TAKE ONE Uni vers 12,000-38,0 7-12 CAPSULE BY it y of 00:00: MOUTH [place] unit 00 EVERY Medical capsule MORNING , Branch ONE CAPSULE AT NOON AND 1 CAPSULE IN THE EVENING WITH MEALS CREON Yes [id number] TAKE ONE Uni vers 12,000-38,0 7-12 CAPSULE BY it y of 00:00: MOUTH [place] unit 00 EVERY Medical capsule MORNING , Branch ONE CAPSULE AT NOON AND 1 CAPSULE IN THE EVENING WITH MEALS CREON Yes [id number] TAKE ONE Uni vers 12,000-38,0 7-12 CAPSULE BY it y of 60, 00:00: MOUTH [place] unit 00 EVERY Medical capsule MORNING , Branch ONE CAPSULE AT NOON AND 1 CAPSULE IN THE EVENING WITH MEALS CREON Yes [id number] TAKE ONE Uni vers 12,000-38,0 7-12 CAPSULE BY it y of 60, 00:00: MOUTH [place] unit 00 EVERY Medical capsule MORNING , Branch ONE CAPSULE AT NOON AND 1 CAPSULE IN THE EVENING WITH MEALS CREON Yes [id number] TAKE ONE Uni vers 12,000-38,0 7-12 CAPSULE BY it y of 60, 00:00: MOUTH [place] unit 00 EVERY Medical capsule MORNING , Branch ONE CAPSULE AT NOON AND 1 CAPSULE IN THE EVENING WITH MEALS CREON Yes [id number] TAKE ONE Uni vers 12,000-38,0 7-12 CAPSULE BY it y of 60, 00:00: MOUTH [place] unit 00 EVERY Medical capsule MORNING , Branch ONE CAPSULE AT NOON AND 1 CAPSULE IN THE EVENING WITH MEALS CREON Yes [id number] TAKE ONE Uni vers 12,000-38,0 7-12 CAPSULE BY it y of 60 00:00: MOUTH [place] unit 00 EVERY Medical capsule MORNING , Branch ONE CAPSULE AT NOON AND 1 CAPSULE IN THE EVENING WITH MEALS CREON Yes [id number] TAKE ONE Uni vers 12,000-38,0 7-12 CAPSULE BY it y of 60, 00:00: MOUTH [place] unit 00 EVERY Medical capsule MORNING , Branch ONE CAPSULE AT NOON AND 1 CAPSULE IN THE EVENING WITH MEALS CREON Yes [id number] TAKE ONE Uni vers 12,000-38,0 7-12 CAPSULE BY it y of 60, 00:00: MOUTH [place] unit 00 EVERY Medical capsule MORNING , Branch ONE CAPSULE AT NOON AND 1 CAPSULE IN THE EVENING WITH MEALS CREON Yes [id number] TAKE ONE Uni vers 12,000-38,0 7-12 CAPSULE [...] IN THE EVENING WITH MEALS CREON Yes [id number] TAKE ONE Uni vers 12,000-38,0 7-12 CAPSULE BY it y of 60 00:00: MOUTH [place] unit 00 EVERY Medical capsule MORNING , Branch ONE CAPSULE AT NOON AND 1 CAPSULE IN THE EVENING WITH MEALS CREON Yes [id number] TAKE ONE Uni vers 12,000-38,0 7-12 CAPSULE BY it y of 60 00:00: MOUTH [place] unit 00 EVERY Medical capsule MORNING , Branch ONE CAPSULE AT NOON AND 1 CAPSULE IN THE EVENING WITH MEALS CREON Yes [id number] TAKE ONE Uni vers 12,000-38,0 7-12 CAPSULE BY it y of 60 00:00: MOUTH [place] unit 00 EVERY Medical capsule MORNING , Branch ONE CAPSULE AT NOON AND 1 CAPSULE IN THE EVENING WITH MEALS GABAPENTIN 2022-0 Yes [id number] TAKE ONE Univers 800 mg 7-06 [id number] TABLET BY ity of tablet 00:00: MOUTH [place] 00 EVERY Medical MORNING , Branch ONE TABLET AT NOON AND 1 TABLET IN THE EVENING GABAPENTIN 2022-0 Yes [id number] TAKE ONE Univers 800 mg 7-06 [id number] TABLET BY ity of tablet 00:00: MOUTH [place] 00 EVERY Medical MORNING , Branch ONE TABLET AT NOON AND 1 TABLET IN THE EVENING GABAPENTIN 3-0 Yes [id number] TAKE ONE Univers 800 mg 7-06 [id number] TABLET BY ity of tablet 00:00: MOUTH [place] 00 EVERY Medical MORNING , Branch ONE TABLET AT NOON AND 1 TABLET IN THE EVENING GABAPENTIN 3-0 Yes [id number] TAKE ONE Univers 800 mg 7-06 [id number] TABLET BY ity of tablet 00:00: MOUTH [place] 00 EVERY Medical MORNING , Branch ONE TABLET AT NOON AND 1 TABLET IN THE EVENING GABAPENTIN 3-0 Yes [id number] TAKE ONE Univers 800 mg 7-06 [id number] TABLET BY ity of tablet 00:00: MOUTH [place] 00 EVERY Medical MORNING , Branch ONE TABLET AT NOON AND 1 TABLET IN THE EVENING GABAPENTIN 3-0 Yes [id number] TAKE ONE Univers 800 mg 7-06 [id number] TABLET BY ity of tablet 00:00: MOUTH [place] 00 EVERY Medical MORNING , Branch ONE TABLET AT NOON AND 1 TABLET IN THE EVENING GABAPENTIN 3-0 Yes [id number] TAKE ONE Univers 800 mg 7-06 [id number] TABLET BY ity of tablet 00:00: MOUTH [place] 00 EVERY Medical MORNING , Branch ONE TABLET AT NOON AND 1 TABLET IN THE EVENING GABAPENTIN 2023-0 Yes [id number] TAKE ONE Univers 800 mg 7-06 [id number] TABLET BY ity of tablet 00:00: MOUTH [place] 00 EVERY Medical MORNING , Branch ONE TABLET AT NOON AND 1 TABLET IN THE EVENING GABAPENTIN 2023-0 Yes [id number] TAKE ONE Univers 800 mg 7-06 [id number] TABLET BY ity of tablet 00:00: MOUTH [place] 00 EVERY Medical MORNING , Branch ONE TABLET AT NOON AND 1 TABLET IN THE EVENING GABAPENTIN 2023-0 Yes [id number] TAKE ONE Univers 800 mg 7-06 [id number] TABLET BY ity of tablet 00:00: MOUTH [place] 00 EVERY Medical MORNING , Branch ONE TABLET AT NOON AND 1 TABLET IN THE EVENING GABAPENTIN 2023-0 Yes [id number] TAKE ONE [facility] 800 mg 7-06 [id number] TABLET BY ity of tablet 00:00: MOUTH [place] 00 EVERY Medical MORNING , Branch ONE TABLET AT NOON AND 1 TABLET IN THE EVENING GABAPENTIN 2023-0 Yes [id number] TAKE ONE Univers 800 mg 7-06 [id number] TABLET BY ity of tablet 00:00: MOUTH [place] 00 EVERY Medical MORNING , Branch ONE TABLET AT NOON AND 1 TABLET IN THE EVENING GABAPENTIN 2023-0 Yes [id number] TAKE ONE Univers 800 mg 7-06 [id number] TABLET BY ity of tablet 00:00: MOUTH [place] 00 EVERY Medical MORNING , Branch ONE TABLET AT NOON AND 1 TABLET IN THE EVENING GABAPENTIN 2023-0 Yes [id number] TAKE ONE [facility] 800 mg 7-06 [id number] TABLET BY [facility] of tablet 00:00: MOUTH [place] 00 EVERY Medical MORNING , Branch ONE TABLET AT NOON AND 1 TABLET IN THE EVENING GABAPENTIN 2023-0 Yes [id number] TAKE ONE [facility] 800 mg 7-06 [id number] TABLET BY [facility] of tablet 00:00: MOUTH [place] 00 EVERY Medical MORNING , Branch ONE TABLET AT NOON AND 1 TABLET IN THE EVENING GABAPENTIN 2023-0 Yes [id number] TAKE ONE [facility] 800 mg 7-06 [id number] TABLET BY [facility] of tablet 00:00: MOUTH [place] 00 EVERY Medical MORNING , Branch ONE TABLET AT NOON AND 1 TABLET IN THE EVENING GABAPENTIN 2023-0 Yes [id number] TAKE ONE [facility] 800 mg 7-06 [id number] TABLET BY [facility] of tablet 00:00: MOUTH [place] 00 EVERY Medical MORNING , Branch ONE TABLET AT NOON AND 1 TABLET IN THE EVENING GABAPENTIN 2023-0 Yes [id number] TAKE ONE [facility] 800 mg 7-06 [id number] TABLET BY [facility] of tablet 00:00: MOUTH [place] 00 EVERY Medical MORNING , Branch ONE TABLET AT NOON AND 1 TABLET IN THE EVENING GABAPENTIN 2023-0 Yes [id number] TAKE ONE [facility] 800 mg 7-06 [id number] TABLET BY [facility] of tablet 00:00: MOUTH [place] 00 EVERY Medical MORNING , Branch ONE TABLET AT NOON AND 1 TABLET IN THE EVENING GABAPENTIN 2023-0 Yes [id number] TAKE ONE [facility] 800 mg 7-06 [id number] TABLET BY [facility] of tablet 00:00: MOUTH [place] 00 EVERY Medical MORNING , Branch ONE TABLET AT NOON AND 1 TABLET IN THE EVENING GABAPENTIN 2023-0 Yes [id number] TAKE ONE [facility] 800 mg 7-06 [id number] TABLET BY [facility] of tablet 00:00: MOUTH [place] 00 EVERY Medical MORNING , Branch ONE TABLET AT NOON AND 1 TABLET IN THE EVENING GABAPENTIN 2023-0 Yes [id number] TAKE ONE [facility] 800 mg 7-06 [id number] TABLET BY [facility] of tablet 00:00: MOUTH [place] 00 EVERY Medical MORNING , Branch ONE TABLET AT NOON AND 1 TABLET IN THE EVENING GABAPENTIN 2023-0 Yes [id number] TAKE ONE [facility] 800 mg 7-06 [id number] TABLET BY [facility] of tablet 00:00: MOUTH [place] 00 EVERY Medical MORNING , Branch ONE TABLET AT NOON AND 1 TABLET IN THE EVENING GABAPENTIN 2023-0 Yes [id number] TAKE ONE [facility] 800 mg 7-06 [id number] TABLET BY [facility] of tablet 00:00: MOUTH [place] 00 EVERY Medical MORNING , Branch ONE TABLET AT NOON AND 1 TABLET IN THE EVENING GABAPENTIN 2023-0 Yes [id number] TAKE ONE [facility] 800 mg 7-06 [id number] TABLET BY [facility] of tablet 00:00: MOUTH [place] 00 EVERY Medical MORNING , Branch ONE TABLET AT NOON AND 1 TABLET IN THE EVENING GABAPENTIN 2023-0 Yes [id number] TAKE ONE [facility] 800 mg 7-06 [id number] TABLET BY [facility] of tablet 00:00: MOUTH [place] 00 EVERY Medical MORNING , Branch ONE TABLET AT NOON AND 1 TABLET IN THE EVENING GABAPENTIN 2023-0 Yes [id number] TAKE ONE [facility] 800 mg 7-06 [id number] TABLET BY [facility] of tablet 00:00: MOUTH [place] 00 EVERY Medical MORNING , Branch ONE TABLET AT NOON AND 1 TABLET IN THE EVENING GABAPENTIN 2023-0 Yes [id number] TAKE ONE [facility] 800 mg 7-06 [id number] TABLET BY [facility] of tablet 00:00: MOUTH [place] 00 EVERY Medical MORNING , Branch ONE TABLET AT NOON AND 1 TABLET IN THE EVENING GABAPENTIN 2023-0 Yes [id number] TAKE ONE [facility] 800 mg 7-06 [id number] TABLET BY [facility] of tablet 00:00: MOUTH [place] 00 EVERY Medical MORNING , Branch ONE TABLET AT NOON AND 1 TABLET IN THE EVENING GABAPENTIN 2023-0 Yes [id number] TAKE ONE [facility] 800 mg 7-06 [id number] TABLET BY [facility] of tablet 00:00: MOUTH [place] 00 EVERY Medical MORNING , Branch ONE TABLET AT NOON AND 1 TABLET IN THE EVENING GABAPENTIN 2023-0 Yes [id number] TAKE ONE [facility] 800 mg 7-06 [id number] TABLET BY [facility] of tablet 00:00: MOUTH [place] 00 EVERY Medical MORNING , Branch ONE TABLET AT NOON AND 1 TABLET IN THE EVENING GABAPENTIN 2023-0 Yes [id number] TAKE ONE [facility] 800 mg 7-06 [id number] TABLET BY [facility] of tablet 00:00: MOUTH [place] 00 EVERY Medical MORNING , Branch ONE TABLET AT NOON AND 1 TABLET IN THE EVENING GABAPENTIN 2023-0 Yes [id number] TAKE ONE [facility] 800 mg 7-06 [id number] TABLET BY [facility] of tablet 00:00: MOUTH [place] 00 EVERY Medical MORNING , Branch ONE TABLET AT NOON AND 1 TABLET IN THE EVENING ferrous 2023-0 2023- No 300mg Take 300 [facility] ers sulfate 300 6-30 06-30 mg by [facility] of mg (60 mg 14:41: 00:00 [place] iron)/5 mL 15 :00 (two) Medical solution times [place] daily. ferrous 2023-0 2023- No 300mg Take 300 [facility] ers sulfate 300 6-30 06-30 mg by [facility] of mg (60 mg 14:41: 00:00 [place] iron)/5 mL 15 :00 (two) Medical solution times [place] daily. omeprazole 2023-0 Yes [id number] Take one [facility] 40 mg 6-30 capsule by [facility] of capsule 00:00: mouth [place] 00 twice Medical daily for Branch one week then one capsule by mouth daily omeprazole 2023-0 Yes [id number] Take one [facility] 40 mg 6-30 capsule by [facility] of capsule 00:00: mouth [place] 00 twice Medical daily for Branch one week then one capsule by mouth daily omeprazole 2023-0 Yes [id number] Take one [facility] 40 mg 6-30 capsule by [facility]y of capsule 00:00: mouth [place] 00 twice Medical daily for Branch one week then one capsule by mouth daily omeprazole 2023-0 Yes [id number] Take one [facility] 40 mg 6-30 capsule by [facility] of capsule 00:00: mouth [place] 00 twice Medical daily for Branch one week then one capsule by mouth daily omeprazole 2023-0 Yes [id number] Take one [facility] 40 mg 6-30 capsule by [facility] of capsule 00:00: mouth [place] 00 twice Medical daily for Branch one week then one capsule by mouth daily omeprazole 2023-0 Yes [id number] Take one [facility] 40 mg 6-30 capsule by [facility] of capsule 00:00: mouth [place] 00 twice Medical daily for Branch one week then one capsule by mouth daily omeprazole 2023-0 Yes [id number] Take one [facility] 40 mg 6-30 capsule by [facility]y of capsule 00:00: mouth [place] 00 twice Medical daily for Branch one week then one capsule by mouth daily omeprazole 2023-0 Yes [id number] Take one [facility] 40 mg 6-30 capsule by [facility]y of capsule 00:00: mouth [place] 00 twice Medical daily for Branch one week then one capsule by mouth daily omeprazole 2023-0 Yes [id number] Take one [facility] 40 mg 6-30 capsule by [facility] of capsule 00:00: mouth [place] 00 twice Medical daily for Branch one week then one capsule by mouth daily omeprazole 2023-0 Yes [id number] Take one [facility] 40 mg 6-30 capsule by [facility] of capsule 00:00: mouth [place] 00 twice Medical daily for Branch one week then one capsule by mouth daily omeprazole 2023-0 Yes [id number] Take one [facility] 40 mg 6-30 capsule by [facility] of capsule 00:00: mouth [place] 00 twice Medical daily for Branch one week then one capsule by mouth daily omeprazole 2023-0 Yes [id number] Take one [facility] 40 mg 6-30 capsule by [facility] of capsule 00:00: mouth [place] 00 twice Medical daily for Branch one week then one capsule by mouth daily omeprazole 2023-0 Yes [id number] Take one [facility] 40 mg 6-30 capsule by [facility] of capsule 00:00: mouth [place] 00 twice Medical daily for Branch one week then one capsule by mouth daily omeprazole 2023-0 Yes [id number] Take one [facility] 40 mg 6-30 capsule by [facility]y of capsule 00:00: mouth [place] 00 twice Medical daily for Branch one week then one capsule by mouth daily omeprazole 2023-0 Yes [id number] Take one [facility] 40 mg 6-30 capsule by [facility] of capsule 00:00: mouth [place] 00 twice Medical daily for Branch one week then one capsule by mouth daily omeprazole 2023-0 Yes [id number] Take one [facility] 40 mg 6-30 capsule by [facility]y of capsule 00:00: mouth [place] 00 twice Medical daily for Branch one week then one capsule by mouth daily omeprazole 2023-0 Yes [id number] Take one [facility] 40 mg 6-30 capsule by [facility]y of capsule 00:00: mouth [place] 00 twice Medical daily for Branch one week then one capsule by mouth daily omeprazole 2023-0 Yes [id number] Take one [facility] 40 mg 6-30 capsule by [facility] of capsule 00:00: mouth [place] 00 twice Medical daily for Branch one week then one capsule by mouth daily omeprazole 2023-0 Yes [id number] Take one [facility] 40 mg 6-30 capsule by [facility]y of capsule 00:00: mouth [place] 00 twice Medical daily for Branch one week then one capsule by mouth daily omeprazole 2023-0 Yes [id number] Take one [facility] 40 mg 6-30 capsule by [facility] of capsule 00:00: mouth [place] 00 twice Medical daily for Branch one week then one capsule by mouth daily omeprazole 2023-0 Yes [id number] Take one [facility] 40 mg 6-30 capsule by [facility] of capsule 00:00: mouth [place] 00 twice Medical daily for Branch one week then one capsule by mouth daily omeprazole 2023-0 Yes [id number] Take one [facility] 40 mg 6-30 capsule by [facility] of capsule 00:00: mouth [place] 00 twice Medical daily for Branch one week then one capsule by mouth daily omeprazole 2023-0 Yes [id number] Take one [facility] 40 mg 6-30 capsule by [facility] of capsule 00:00: mouth [place] 00 twice Medical daily for Branch one week then one capsule by mouth daily omeprazole 2023-0 Yes [id number] Take one [facility] 40 mg 6-30 capsule by [facility] of capsule 00:00: mouth [place] 00 twice Medical daily for Branch one week then one capsule by mouth daily omeprazole 2023-0 Yes [id number] Take one [facility] 40 mg 6-30 capsule by [facility]y of capsule 00:00: mouth [place] 00 twice Medical daily for Branch one week then one capsule by mouth daily omeprazole 2023-0 Yes [id number] Take one [facility] 40 mg 6-30 capsule by [facility]y of capsule 00:00: mouth [place] 00 twice Medical daily for Branch one week then one capsule by mouth daily omeprazole 2023-0 Yes [id number] Take one [facility] 40 mg 6-30 capsule by [facility]y of capsule 00:00: mouth [place] 00 twice Medical daily for Branch one week then one capsule by mouth daily omeprazole 2023-0 Yes [id number] Take one [facility] 40 mg 6-30 capsule by [facility] of capsule 00:00: mouth [place] 00 twice Medical daily for Branch one week then one capsule by mouth daily omeprazole 2023-0 Yes [id number] Take one [facility] 40 mg 6-30 capsule by [facility] of capsule 00:00: mouth [place] 00 twice Medical daily for Branch one week then one capsule by mouth daily omeprazole 2023-0 Yes [id number] Take one [facility] 40 mg 6-30 capsule by [facility]y of capsule 00:00: mouth [place] 00 twice Medical daily for Branch one week then one capsule by mouth daily omeprazole 2023-0 Yes [id number] Take one [facility] 40 mg 6-30 capsule by ity of capsule 00:00: mouth [place] 00 twice Medical daily for Branch one week then one capsule by mouth daily omeprazole 2023-0 Yes [id number] Take one [facility] 40 mg 6-30 capsule by ity of capsule 00:00: mouth [place] 00 twice Medical daily for Branch one week then one capsule by mouth daily omeprazole 2023-0 Yes [id number] Take one [facility] 40 mg 6-30 capsule by ity of capsule 00:00: mouth [place] 00 twice Medical daily for Branch one week then one capsule by mouth daily omeprazole 2023-0 Yes [id number] Take one [facility] 40 mg 6-30 capsule by ity of capsule 00:00: mouth [place] 00 twice Medical daily for Branch one week then one capsule by mouth daily omeprazole 2023-0 Yes [id number] Take one [facility] 40 mg 6-30 capsule by ity of capsule 00:00: mouth [place] 00 twice Medical daily for Branch one week then one capsule by mouth daily omeprazole 2023-0 Yes [id number] Take one [facility] 40 mg 6-30 capsule by [facility]y of capsule 00:00: mouth [place] 00 twice Medical daily for Branch one week then one capsule by mouth daily levothyroxi 2022-0 Yes [id number] 150ug Take 1 [facility] ne 150 mcg 5-31 tablet by [facility] of tablet 00:00: mouth [place] 00 every Medical morning. Branch levothyroxi 2022-0 Yes [id number] 150ug Take 1 [facility] ne 150 mcg 5-31 tablet by ity of tablet 00:00: mouth [place] 00 every Medical morning. Branch levothyroxi 2022-0 Yes [id number] 150ug Take 1 [facility] ne 150 mcg 5-31 tablet by ity of tablet 00:00: mouth [place] 00 every Medical morning. Branch levothyroxi 2022-0 Yes [id number] 150ug Take 1 [facility] ne 150 mcg 5-31 tablet by ity of tablet 00:00: mouth [place] 00 every Medical morning. Branch levothyroxi 2022-0 Yes [id number] 150ug Take 1 [facility] ne 150 mcg 5-31 tablet by [facility]y of tablet 00:00: mouth [place] 00 every Medical morning. Branch levothyroxi 2022-0 Yes [id number] 150ug Take 1 [facility] ne 150 mcg 5-31 tablet by ity of tablet 00:00: mouth [place] 00 every Medical morning. Branch levothyroxi 2022-0 Yes [id number] 150ug Take 1 [facility] ne 150 mcg 5-31 tablet by ity of tablet 00:00: mouth [place] 00 every Medical morning. Branch levothyroxi 2022-0 Yes [id number] 150ug Take 1 [facility] ne 150 mcg 5-31 tablet by ity of tablet 00:00: mouth [place] 00 every Medical morning. Branch levothyroxi 2022-0 Yes [id number] 150ug Take 1 [facility] ne 150 mcg 5-31 tablet by [facility]y of tablet 00:00: mouth [place] 00 every Medical morning. Branch levothyroxi 2022-0 Yes [id number] 150ug Take 1 [facility] ne 150 mcg 5-31 tablet by [facility]y of tablet 00:00: mouth [place] 00 every Medical morning. Branch levothyroxi 2022-0 Yes [id number] 150ug Take 1 [facility] ne 150 mcg 5-31 tablet by ity of tablet 00:00: mouth [place] 00 every Medical morning. Branch levothyroxi 2023-0 Yes [id number] 150ug Take 1 [facility] ne 150 mcg 5-31 tablet by ity of tablet 00:00: mouth [place] 00 every Medical morning. Branch levothyroxi 3-0 Yes [id number] 150ug Take 1 [facility] ne 150 mcg 5-31 tablet by ity of tablet 00:00: mouth [place] 00 every Medical morning. Branch levothyroxi 3-0 Yes [id number] 150ug Take 1 [facility] ne 150 mcg 5-31 tablet by ity of tablet 00:00: mouth [place] 00 every Medical morning. Branch levothyroxi 3-0 Yes [id number] 150ug Take 1 [facility] ne 150 mcg 5-31 tablet by ity of tablet 00:00: mouth [place] 00 every Medical morning. Branch levothyroxi 3-0 Yes [id number] 150ug Take 1 [facility] ne 150 mcg 5-31 tablet by ity of tablet 00:00: mouth [place] 00 every Medical morning. Branch levothyroxi 3-0 Yes [id number] 150ug Take 1 [facility] ne 150 mcg 5-31 tablet by ity of tablet 00:00: mouth [place] 00 every Medical morning. Branch levothyroxi 3-0 Yes [id number] 150ug Take 1 [facility] ne 150 mcg 5-31 tablet by ity of tablet 00:00: mouth [place] 00 every Medical morning. Branch levothyroxi 3-0 Yes [id number] 150ug Take 1 [facility] ne 150 mcg 5-31 tablet by ity of tablet 00:00: mouth [place] 00 every Medical morning. Branch levothyroxi 3-0 Yes [id number] 150ug Take 1 [facility] ne 150 mcg 5-31 tablet by ity of tablet 00:00: mouth [place] 00 every Medical morning. Branch levothyroxi 3-0 Yes [id number] 150ug Take 1 [facility] ne 150 mcg 5-31 tablet by [facility]y of tablet 00:00: mouth [place] 00 every Medical morning. Branch levothyroxi 3-0 Yes [id number] 150ug Take 1 [facility] ne 150 mcg 5-31 tablet by [facility]y of tablet 00:00: mouth [place] 00 every Medical morning. Branch levothyroxi 3-0 Yes [id number] 150ug Take 1 [facility] ne 150 mcg 5-31 tablet by [facility] of tablet 00:00: mouth [place] 00 every Medical morning. Branch levothyroxi 3-0 Yes [id number] 150ug Take 1 [facility] ne 150 mcg 5-31 tablet by [facility]y of tablet 00:00: mouth [place] 00 every Medical morning. Branch levothyroxi 2022-0 Yes [id number] 150ug Take 1 [facility] ne 150 mcg 5-31 tablet by [facility]y of tablet 00:00: mouth [place] 00 every Medical morning. Branch levothyroxi 2022-0 Yes [id number] 150ug Take 1 [facility] ne 150 mcg 5-31 tablet by [facility] of tablet 00:00: mouth [place] 00 every Medical morning. Branch levothyroxi 2022-0 Yes [id number] 150ug Take 1 [facility] ne 150 mcg 5-31 tablet by [facility]y of tablet 00:00: mouth [place] 00 every Medical morning. Branch levothyroxi 2022-0 Yes [id number] 150ug Take 1 [facility] ne 150 mcg 5-31 tablet by ity of tablet 00:00: mouth [place] 00 every Medical morning. Branch levothyroxi 2022-0 Yes [id number] 150ug Take 1 [facility] ne 150 mcg 5-31 tablet by [facility]y of tablet 00:00: mouth [place] 00 every Medical morning. Branch levothyroxi 2022-0 Yes [id number] 150ug Take 1 [facility] ne 150 mcg 5-31 tablet by [facility] of tablet 00:00: mouth [place] 00 every Medical morning. Branch levothyroxi 2022-0 Yes [id number] 150ug Take 1 [facility] ne 150 mcg 5-31 tablet by [facility]y of tablet 00:00: mouth [place] 00 every Medical morning. Branch levothyroxi 2022-0 Yes [id number] 150ug Take 1 [facility] ne 150 mcg 5-31 tablet by ity of tablet 00:00: mouth [place] 00 every Medical morning. Branch levothyroxi 2022-0 Yes [id number] 150ug Take 1 [facility] ne 150 mcg 5-31 tablet by ity of tablet 00:00: mouth [place] 00 every Medical morning. Branch levothyroxi 2022-0 Yes [id number] 150ug Take 1 [facility] ne 150 mcg 5-31 tablet by ity of tablet 00:00: mouth [place] 00 every Medical morning. Branch levothyroxi 2022-0 Yes [id number] 150ug Take 1 [facility] ne 150 mcg 5-31 tablet by ity of tablet 00:00: mouth [place] 00 every Medical morning. Branch levothyroxi 2022-0 Yes [id number] 150ug Take 1 [facility] ne 150 mcg 5-31 tablet by ity of tablet 00:00: mouth [place] 00 every Medical morning. Branch levothyroxi 2023-0 Yes [id number] 150ug Take 1 [facility] ne 150 mcg 5-31 tablet by ity of tablet 00:00: mouth [place] 00 every Medical morning. Branch levothyroxi 2023-0 Yes [id number] 150ug Take 1 [facility] ne 150 mcg 5-31 tablet by ity of tablet 00:00: mouth [place] 00 every Medical morning. Branch levothyroxi 2023-0 Yes [id number] 150ug Take 1 [facility] ne 150 mcg 5-31 tablet by ity of tablet 00:00: mouth [place] 00 every Medical morning. Branch levothyroxi 2023-0 Yes [id number] 150ug Take 1 [facility] ne 150 mcg 5-31 tablet by ity of tablet 00:00: mouth [place] 00 every Medical morning. Branch levothyroxi 2023-0 Yes [id number] 150ug Take 1 [facility] ne 150 mcg 5-31 tablet by ity of tablet 00:00: mouth [place] 00 every Medical morning. Branch levothyroxi 2023-0 Yes [id number] 150ug Take 1 [facility] ne 150 mcg 5-31 tablet by ity of tablet 00:00: mouth [place] 00 every Medical morning. Branch GABAPENTIN 2023-0 Yes [id number] TAKE ONE [facility] 800 mg 5-03 [id number] TABLET BY [facility] of tablet 00:00: MOUTH [place] 00 EVERY Medical MORNING , Branch ONE TABLET AT NOON AND 1 TABLET IN THE EVENING GABAPENTIN 2023-0 Yes [id number] TAKE ONE [facility] 800 mg 5-03 [id number] TABLET BY [facility] of tablet 00:00: MOUTH [place] 00 EVERY Medical MORNING , Branch ONE TABLET AT NOON AND 1 TABLET IN THE EVENING GABAPENTIN 2023-0 Yes [id number] TAKE ONE [facility] 800 mg 5-03 [id number] TABLET BY [facility] of tablet 00:00: MOUTH [place] 00 EVERY Medical MORNING , Branch ONE TABLET AT NOON AND 1 TABLET IN THE EVENING GABAPENTIN 2023-0 Yes [id number] TAKE ONE [facility] 800 mg 5-03 [id number] TABLET BY [facility] of tablet 00:00: MOUTH [place] 00 EVERY Medical MORNING , Branch ONE TABLET AT NOON AND 1 TABLET IN THE EVENING GABAPENTIN 2023-0 Yes [id number] TAKE ONE [facility] 800 mg 5-03 [id number] TABLET BY [facility]y of tablet 00:00: MOUTH [place] 00 EVERY Medical MORNING , Branch ONE TABLET AT NOON AND 1 TABLET IN THE EVENING GABAPENTIN 2023-0 Yes [id number] TAKE ONE [facility] 800 mg 5-03 [id number] TABLET BY ity of tablet 00:00: MOUTH [place] 00 EVERY Medical MORNING , Branch ONE TABLET AT NOON AND 1 TABLET IN THE EVENING GABAPENTIN 2023-0 Yes [id number] TAKE ONE [facility] 800 mg 5-03 [id number] TABLET BY ity of tablet 00:00: MOUTH [place] 00 EVERY Medical MORNING , Branch ONE TABLET AT NOON AND 1 TABLET IN THE EVENING GABAPENTIN 2023-0 Yes [id number] TAKE ONE [facility] 800 mg 5-03 [id number] TABLET BY ity of tablet 00:00: MOUTH [place] 00 EVERY Medical MORNING , Branch ONE TABLET AT NOON AND 1 TABLET IN THE EVENING GABAPENTIN 2023-0 Yes [id number] TAKE ONE [facility] 800 mg 5-03 [id number] TABLET BY ity of tablet 00:00: MOUTH [place] 00 EVERY Medical MORNING , Branch ONE TABLET AT NOON AND 1 TABLET IN THE EVENING GABAPENTIN 2023-0 Yes [id number] TAKE ONE [facility] 800 mg 5-03 [id number] TABLET BY ity of tablet 00:00: MOUTH [place] 00 EVERY Medical MORNING , Branch ONE TABLET AT NOON AND 1 TABLET IN THE EVENING GABAPENTIN 2023-0 Yes [id number] TAKE ONE [facility] 800 mg 5-03 [id number] TABLET BY ity of tablet 00:00: MOUTH [place] 00 EVERY Medical MORNING , Branch ONE TABLET AT NOON AND 1 TABLET IN THE EVENING GABAPENTIN 2023-0 Yes [id number] TAKE ONE [facility] 800 mg 5-03 [id number] TABLET BY ity of tablet 00:00: MOUTH [place] 00 EVERY Medical MORNING , Branch ONE TABLET AT NOON AND 1 TABLET IN THE EVENING GABAPENTIN 2023-0 Yes [id number] TAKE ONE [facility] 800 mg 5-03 [id number] TABLET BY ity of tablet 00:00: MOUTH [place] 00 EVERY Medical MORNING , Branch ONE TABLET AT NOON AND 1 TABLET IN THE EVENING GABAPENTIN 2023-0 2023- No [id number] TAKE ONE [facility] 800 mg 5-03 07-06 [id number] TABLET BY ity o f tablet 00:00: 00:00 MOUTH [place] 00 :00 EVERY Medical MORNING , Branch ONE TABLET AT NOON AND 1 TABLET IN THE EVENING levothyroxi 2021-04 Yes [id number] 150ug Take 1 [facility] ne 150 mcg 1-07 tablet by [facility]y of tablet 00:00: mouth [place] 00 every Medical morning. Branch levothyroxi 2021-04 Yes [id number] 150ug Take 1 [facility] ne 150 mcg 1-07 tablet by ity of tablet 00:00: mouth [place] 00 every Medical morning. Branch levothyroxi 2021-04 Yes [id number] 150ug Take 1 [facility] ne 150 mcg 1-07 tablet by ity of tablet 00:00: mouth [place] 00 every Medical morning. Branch levothyroxi 2021-04 Yes [id number] 150ug Take 1 [facility] ne 150 mcg 1-07 tablet by ity of tablet 00:00: mouth [place] 00 every Medical morning. Branch levothyroxi 2021-04 Yes [id number] 150ug Take 1 [facility] ne 150 mcg 1-07 tablet by ity of tablet 00:00: mouth [place] 00 every Medical morning. Branch levothyroxi 2021-04- No [id number] 150ug Take 1 [facility] ne 150 mcg 1-07 05-31 tablet by ity of tablet 00:00: 00:00 mouth [place] 00 :00 every Medical morning. Branch levothyroxi 2021-04- No [id number] 150ug Take 1 [facility] ne 150 mcg 1-07 05-31 tablet by ity of tablet 00:00: 00:00 mouth [place] 00 :00 every Medical morning. Branch levothyroxi 2021-04- No [id number] 150ug Take 1 [facility] ne 150 mcg 1-07 05-31 tablet by ity of tablet 00:00: 00:00 mouth [place] 00 :00 every Medical morning. Branch levothyroxi 2021-04- No [id number] 150ug Take 1 [facility] ne 150 mcg 1-07 05-31 tablet by ity of tablet 00:00: 00:00 mouth [place] 00 :00 every Medical morning. Branch levothyroxi 2021-04- No [id number] 150ug Take 1 [facility] ne 150 mcg 1-07 05-31 tablet by ity of tablet 00:00: 00:00 mouth [place] 00 :00 every Medical morning. Branch levothyroxi 2021-04 Yes [id number] TAKE 1 [facility] ne 137 mcg 1-04 TABLET BY ity of tablet 00:00: MOUTH [place] 00 EVERY Medical OTHER DAY Branch levothyroxi 2021-04 Yes [id number] TAKE 1 [facility] ne 137 mcg 1-04 TABLET BY ity of tablet 00:00: MOUTH [place] 00 EVERY Medical OTHER DAY Branch levothyroxi 2021-04- No [id number] TAKE 1 [facility] ne 137 mcg 1-04 11-07 TABLET BY ity of tablet 00:00: 00:00 MOUTH [place] 00 :00 EVERY Medical OTHER DAY Branch levothyroxi 2021-04- No [id number] TAKE 1 [facility] ne 137 mcg 1-04 11-07 TABLET BY ity of tablet 00:00: 00:00 MOUTH [place] 00 :00 EVERY Medical OTHER DAY Branch levothyroxi 2021-04 Yes [id number] TAKE 1 [facility] ne 137 mcg 0-11 TABLET BY ity of tablet 00:00: MOUTH [place] 00 EVERY Medical OTHER DAY Branch levothyroxi 2021-04 Yes [id number] TAKE 1 [facility] ne 137 mcg 0-11 TABLET BY ity of tablet 00:00: MOUTH [place] 00 EVERY Medical OTHER DAY Branch levothyroxi 2021-04- No [id number] TAKE 1 [facility] ne 137 mcg 0-11 11-04 TABLET BY ity of tablet 00:00: 00:00 MOUTH [place] 00 :00 EVERY Medical OTHER DAY Branch levothyroxi 2021-04- No [id number] TAKE 1 [facility] ne 137 mcg 0-11 [...] of Breath or Bronchospa sm. ketoconazol Yes [id number] Apply to [facility] e 2 % 8-29 area(s) it[facility] of shampoo 00:00: [place] 00 as needed Medical for Branch Itching. escitalopra Yes [id number] 20mg Take 1 [facility] m oxalate 8-29 tablet by ity o f 20 mg 00:00: mouth in [place] tablet 00 the Medical morning. Branch pantoprazol Yes [id number] 40mg Take 20 mL [facility] e 2 mg/mL 8-29 by mouth ity of oral 00:00: in the [place] suspension 00 morning. Medic al Branch lipase-prot Yes 1{capsu Take 1 U nivers ease-amylas 8-29 le} capsule by it y of e (CREON) 00:00: mouth in [facility] -38,0 00 the Medical morning Branch unit and 1 capsule capsule at noon and 1 capsule in the evening. Take with meals. ARIPiprazol Yes [id number] 5mg Take 1 [facility] e 5 mg 8-29 tablet by ity of tablet 00:00: mouth in [place] 00 the morning. Branch albuterol Yes 2.5mg Inhale 3 Uni vers 2.5 mg /3 8-29 mL every 4 ity of mL (0.083 00:00: (four) [place] ) 00 hours as Medical nebulizer needed for Bran ch solution Wheezing, Shortness of Breath or Bronchospa sm. gabapentin Yes [id number] 800mg Take 1 [facility] 800 mg 8-29 [id number] tablet by ity of tablet 00:00: mouth in [place] 00 the morning Branch and 1 tablet at noon and 1 tablet in the evening. ketoconazol Yes [id number] Apply to Univers e 2 % 8-29 area(s) ity of shampoo 00:00: once daily [facility] 00 as needed Medical for Branch Itching. escitalopra Yes [id number] 20mg Take 1 [facility] m oxalate 8-29 tablet by ity o f 20 mg 00:00: mouth in [place] tablet 00 the morning. Branch pantoprazol Yes [id number] 40mg Take 20 mL [facility] e 2 mg/mL 8-29 by mouth ity of oral 00:00: in the [place] suspension 00 morning. Medic al Branch lipase-prot Yes 1{capsu Take 1 U nivers ease-amylas 8-29 le} capsule by it y of e (CREON) 00:00: mouth in [facility] -38,0 00 the Medical morning Branch unit and 1 capsule capsule at noon and 1 capsule in the evening. Take with meals. ARIPiprazol Yes [id number] 5mg Take 1 [facility] 5 mg [...] Breath or Bronchospa sm. gabapentin 0 Yes [id number] 800mg Take 1 [facility] 800 mg 8-29 [id number] tablet by ity of tablet 00:00: mouth in [place] 00 the Medical morning Branch and 1 tablet at noon and 1 tablet in the evening. ketoconazol Yes [id number] Apply to [facility] 2 % 8-29 area(s) ity of shampoo 00:[place] 00 [place] needed Medical for Branch Itching. escitalopra Yes [id number] 20mg Take 1 [facility] m oxalate 8-29 tablet by ity o f 20 mg 00:00: mouth in [place] tablet 00 the Medical morning. Branch pantoprazol Yes [id number] 40mg Take 20 mL [facility] 2 [...] the evening. Take with meals. ARIPiprazol Yes [id number] 5mg Take 1 [facility] e 5 mg [...] Breath or Bronchospa sm. gabapentin 2021-0 Yes [id number] 800mg Take 1 [facility] 800 mg 8-29 [id number] tablet by ity of tablet 00:00: mouth in [place] 00 the Medical morning Branch and 1 tablet at noon and 1 tablet in the evening. ketoconazol Yes [id number] Apply to [facility] 2 % 8-29 area(s) ity of shampoo 00:00: [place] 00 as needed Medical for Branch Itching. escitalopra Yes [id number] 20mg Take 1 [facility] m oxalate 8-29 tablet by ity o f 20 mg 00:00: mouth in [place] tablet 00 the Medical morning. Branch pantoprazol Yes [id number] 40mg Take 20 mL [facility] e 2 mg/mL 8-29 by mouth ity of oral 00:00: in the [place] suspension 00 morning. Medic al Branch lipase-prot Yes 1{capsu Take 1 U nivers ease-amylas 8-29 le} capsule by it y of e (CREON) 00:00: mouth in [facility] s 12,000-38,0 00 the Medical 00 -60,000 morning Branch unit and 1 capsule capsule at noon and 1 capsule in the evening. Take with meals. ARIPiprazol Yes [id number] 5mg Take 1 [facility] e 5 mg 8-29 tablet by ity of tablet 00:00: mouth in [place] 00 the Medical morning. Branch albuterol Yes 2.5mg Inhale 3 Uni vers 2.5 mg /3 8-29 mL every 4 ity of mL (0.083 00:00: (four) [place] %) 00 hours as Medical nebulizer needed for Bran ch solution Wheezing, Shortness of Breath or Bronchospa sm. gabapentin Yes [id number] 800mg Take 1 [facility] 800 mg 8-29 [id number] tablet by ity of tablet 00:00: mouth in [place] 00 the Medical morning Branch and 1 tablet at noon and 1 tablet in the evening. ketoconazol Yes [id number] Apply to [facility] 2 % 8-29 area(s) ity of shampoo 00:00: [place] 00 as needed Medical for Branch Itching. escitalopra Yes [id number] 20mg Take 1 [facility] m oxalate 8-29 tablet by ity o f 20 mg 00:00: mouth in [place] tablet 00 the morning. Branch pantoprazol Yes [id number] 40mg Take 20 mL [facility] e 2 mg/mL 8-29 by mouth ity of oral 00:00: in the [place] suspension morning. Medic al Branch lipase-prot Yes 1{capsu Take 1 U nivers ease-amylas 8-29 le} capsule by it y of e (CREON) 00:00: mouth in [facility] ,0 the Medical morning Branch unit and 1 capsule capsule at noon and 1 capsule in the evening. Take with meals. ARIPiprazol Yes [id number] 5mg Take 1 [facility] e 5 mg 8-29 tablet by ity of tablet 00:00: mouth in [place] the morning. Branch albuterol Yes 2.5mg Inhale 3 Uni vers 2.5 mg /3 8-29 mL every 4 ity of mL (0.083 00:00: (four) [place] %) 00 hours as Medical nebulizer needed for Bran ch solution Wheezing, Shortness of Breath or Bronchospa sm. gabapentin Yes [id number] 800mg Take 1 [facility] 800 mg 8-29 [id number] tablet by ity of tablet 00:00: mouth in [place] the morning Branch and 1 tablet at noon and 1 tablet in the evening. ketoconazol Yes [id number] Apply to [facility] e 2 % 8-29 area(s) ity of shampoo 00:00: once daily [facility] s as needed Medical for Branch Itching. escitalopra Yes [id number] 20mg Take 1 [facility] m oxalate 8-29 tablet by ity o f 20 mg 00:00: mouth in [place] tablet 00 the morning. Branch pantoprazol Yes [id number] 40mg Take 20 mL [facility] e 2 mg/mL 8-29 by mouth ity of oral 00:00: in the [place] suspension 00 morning. Medic al Branch lipase-prot Yes 1{capsu Take 1 U nivers ease-amylas 8-29 le} capsule by it y of e (CREON) 00:00: mouth in [facility] 12,000-38,0 00 the Medical 00 -60,000 morning Branch unit and 1 capsule capsule at noon and 1 capsule in the evening. Take with meals. ARIPiprazol Yes [id number] 5mg Take 1 [facility] e 5 mg 8-29 tablet by ity of tablet 00:00: mouth in [place] 00 the Medical morning. Branch albuterol Yes 2.5mg Inhale 3 Uni vers 2.5 mg /3 8-29 mL every 4 ity of mL (0.083 00:00: (four) [place] %) 00 hours as Medical nebulizer needed for Bran ch solution Wheezing, Shortness of Breath or Bronchospa sm. gabapentin Yes [id number] 800mg Take 1 [facility] 800 mg 8-29 [id number] tablet by ity of tablet 00:00: mouth in [place] 00 the Medical morning Branch and 1 tablet at noon and 1 tablet in the evening. ketoconazol Yes [id number] Apply to [facility] e 2 % 8-29 area(s) ity of shampoo 00:00: [place] 00 as needed Medical for Branch Itching. escitalopra Yes [id number] 20mg Take 1 [facility] m oxalate 8-29 tablet by ity o f 20 mg 00:00: mouth in [place] tablet 00 the Medical morning. Branch pantoprazol Yes [id number] 40mg Take 20 mL [facility] e 2 [...] the evening. Take with meals. ARIPiprazol Yes [id number] 5mg Take 1 [facility] e 5 mg 8-29 tablet by ity of tablet 00:00: mouth in [place] 00 the Medical morning. Branch albuterol Yes 2.5mg Inhale 3 Uni vers 2.5 mg /3 8-29 mL every 4 ity of mL (0.083 00:00: (four) [place] %) 00 hours as Medical nebulizer needed for Bran ch solution Wheezing, Shortness of Breath or Bronchospa sm. gabapentin Yes [id number] 800mg Take 1 [facility] 800 mg 8-29 [id number] tablet by ity of tablet 00:00: mouth in [place] 00 the Medical morning Branch and 1 tablet at noon and 1 tablet in the evening. ketoconazol Yes [id number] Apply to [facility] 2 % 8-29 area(s) ity of shampoo 00:00: [place] 00 as needed Medical for Branch Itching. escitalopra Yes [id number] 20mg Take 1 [facility] m oxalate 8-29 tablet by ity o f 20 mg 00:00: mouth in [place] tablet 00 the Medical morning. Branch pantoprazol Yes [id number] 40mg Take 20 mL [facility] e 2 mg/mL 8-29 by mouth ity of oral 00:00: in the [place] suspension 00 morning. Medic al Branch lipase-prot Yes 1{capsu Take 1 U nivers ease-amylas 8-29 le} capsule by it y of e (CREON) 00:00: mouth in [facility] s 12,000-38,0 00 the Medical 00 -60,000 morning Branch unit and 1 capsule capsule at noon and 1 capsule in the evening. Take with meals. ARIPiprazol Yes [id number] 5mg Take 1 [facility] e 5 mg 8-29 tablet by ity of tablet 00:00: mouth in [place] 00 the Medical morning. Branch albuterol Yes 2.5mg Inhale 3 Uni vers 2.5 mg /3 8-29 mL every 4 ity of mL (0.083 00:00: (four) [place] %) 00 hours as Medical nebulizer needed for Bran ch solution Wheezing, Shortness of Breath or Bronchospa sm. gabapentin Yes [id number] 800mg Take 1 [facility] 800 mg 8-29 [id number] tablet by ity of tablet 00:00: mouth in [place] 00 the Medical morning Branch and 1 tablet at noon and 1 tablet in the evening. ketoconazol Yes [id number] Apply to [facility] e 2 % 8-29 area(s) ity of shampoo 00:00: [place] 00 as needed Medical for Branch Itching. escitalopra Yes [id number] 20mg Take 1 [facility] m oxalate 8-29 tablet by ity o f 20 mg 00:00: mouth in [place] tablet 00 the Medical morning. Branch pantoprazol Yes [id number] 40mg Take 20 mL [facility] e 2 [...] the evening. Take with meals. ARIPiprazol Yes [id number] 5mg Take 1 [facility] e 5 mg 8-29 tablet by ity of tablet 00:00: mouth in [place] 00 the morning. Branch albuterol Yes 2.5mg Inhale 3 Uni vers 2.5 mg /3 8-29 mL every 4 ity of mL (0.083 00:00: (four) [place] %) 00 hours as Medical nebulizer needed for Bran ch solution Wheezing, Shortness of Breath or Bronchospa sm. gabapentin Yes [id number] 800mg Take 1 [facility] 800 mg 8-29 [id number] tablet by ity of tablet 00:00: mouth in [place] 00 the Medical morning Branch and 1 tablet at noon and 1 tablet in the evening. ketoconazol Yes [id number] Apply to [facility] e 2 % 8-29 area(s) ity of shampoo 00:00: [place] 00 as needed Medical for Branch Itching. escitalopra Yes [id number] 20mg Take 1 [facility] m oxalate 8-29 tablet by ity o f 20 mg 00:00: mouth in [place] tablet 00 the Medical morning. Branch pantoprazol Yes [id number] 40mg Take 20 mL [facility] e 2 mg/mL 8-29 by mouth ity of oral 00:00: in the [place] suspension 00 morning. Medic al Branch lipase-prot Yes 1{capsu Take 1 U nivers ease-amylas 8-29 le} capsule by it y of e (CREON) 00:00: mouth in [facility] -, 00 the Medical morning Branch unit and 1 capsule capsule at noon and 1 capsule in the evening. Take with meals. ARIPiprazol Yes [id number] 5mg Take 1 [facility] e 5 mg 8-29 tablet by ity of tablet 00:00: mouth in [place] 00 the morning. Branch albuterol Yes 2.5mg Inhale 3 [facility] vers 2.5 mg /3 8-29 mL every 4 ity of mL (0.083 00:00: (four) [place] %) 00 hours as Medical nebulizer needed for Bran ch solution Wheezing, Shortness of Breath or Bronchospa sm. gabapentin Yes [id number] 800mg Take 1 [facility] 800 mg 8-29 [id number] tablet by ity of tablet 00:00: mouth in [place] 00 the Medical morning Branch and 1 tablet at noon and 1 tablet in the evening. ketoconazol Yes [id number] Apply to [facility] e 2 % 8-29 area(s) ity of shampoo 00:00: once daily [facility] 00 as needed Medical for Branch Itching. escitalopra Yes [id number] 20mg Take 1 [facility] m oxalate 8-29 tablet by ity o f 20 mg 00:00: mouth in [place] tablet 00 the morning. Branch pantoprazol Yes [id number] 40mg Take 20 mL [facility] e 2 mg/mL 8-29 by mouth ity of oral 00:00: in the [place] suspension 00 morning. Medic al Branch lipase-prot Yes 1{capsu Take 1 U nivers ease-amylas 8-29 le} capsule by it y of e (CREON) 00:00: mouth in [facility] -,0 00 the Medical morning Branch unit and 1 capsule capsule at noon and 1 capsule in the evening. Take with meals. ARIPiprazol Yes [id number] 5mg Take 1 [facility] e 5 mg 8-29 tablet by ity of tablet 00:00: mouth in [place] 00 the Medical morning. Branch albuterol 0 Yes 2.5mg Inhale 3 Uni vers 2.5 mg /3 8-29 mL every 4 ity of mL (0.083 00:00: (four) [place] %) 00 hours as Medical nebulizer needed for Bran ch solution Wheezing, Shortness of Breath or Bronchospa sm. gabapentin 2021-0 Yes [id number] 800mg Take 1 [facility] 800 mg 8-29 [id number] tablet by ity of tablet 00:00: mouth in [place] 00 the Medical morning Branch and 1 tablet at noon and 1 tablet in the evening. ketoconazol 0 Yes [id number] Apply to [facility] e 2 % 8-29 area(s) ity of shampoo 00:00: [place] 00 as needed Medical for Branch Itching. escitalopra Yes [id number] 20mg Take 1 [facility] m oxalate 8-29 tablet by ity o f 20 mg 00:00: mouth in [facility] 00 the Medical morning. Branch pantoprazol Yes [id number] 40mg Take 20 mL [facility] e 2 [...] evening. Take with meals. ARIPiprazol 0 Yes [id number] 5mg Take 1 [facility] e 5 mg 8-29 tablet by ity of tablet 00:00: mouth in [place] 00 the Medical morning. Branch albuterol 0 Yes 2.5mg Inhale 3 Uni vers 2.5 mg /3 8-29 mL every 4 ity of mL (0.083 00:00: (four) [place] %) 00 hours as Medical nebulizer needed for Bran ch solution Wheezing, Shortness of Breath or Bronchospa sm. ketoconazol 2021-0 Yes [id number] Apply to [facility] e 2 % 8-29 area(s) ity of shampoo 00:00: [place] 00 as needed Medical for Branch Itching. escitalopra Yes [id number] 20mg Take 1 [facility] m oxalate 8-29 tablet by ity o f 20 mg 00:00: mouth in [place] tablet 00 the Medical morning. Branch pantoprazol Yes [id number] 40mg Take 20 mL [facility] e 2 [...] the evening. Take with meals. ARIPiprazol Yes [id number] 5mg Take 1 [facility] e 5 mg 8-29 tablet by ity of tablet 00:00: mouth in [place] 00 the Medical morning. Branch albuterol Yes 2.5mg Inhale 3 Uni vers 2.5 mg /3 8-29 mL every 4 ity of mL (0.083 00:00: (four) [place] %) 00 hours as Medical nebulizer needed for Bran ch solution Wheezing, Shortness of Breath or Bronchospa sm. ketoconazol Yes [id number] Apply to [facility] e 2 % 8-29 area(s) ity of shampoo 00:00: [place] 00 as needed Medical for Branch Itching. escitalopra Yes [id number] 20mg Take 1 [facility] m oxalate 8-29 tablet by ity o f 20 mg 00:00: mouth in [place] tablet 00 the Medical morning. Branch pantoprazol Yes [id number] 40mg Take 20 mL [facility] e 2 mg/mL 8-29 by mouth ity of oral 00:00: in the [place] suspension 00 morning. Medic al Branch lipase-prot Yes 1{capsu Take 1 U nivers ease-amylas 8-29 le} capsule by it y of e (CREON) 00:00: [place] -,0 00 the Medical 00 -60,000 morning Branch unit and 1 capsule capsule at noon and 1 capsule in the evening. Take with meals. ARIPiprazol 2021-0 Yes [id number] 5mg Take 1 [facility] e 5 mg [...] Breath or Bronchospa sm. ketoconazol 2021-0 Yes [id number] Apply to [facility] e 2 % 8-29 area(s) ity of shampoo 00:00: [place] 00 as needed Medical for Branch Itching. escitalopra Yes [id number] 20mg Take 1 [facility] m oxalate 8-29 tablet by ity o f 20 mg 00:00: mouth in [facility] 00 the Medical morning. Branch pantoprazol 0 Yes [id number] 40mg Take 20 mL [facility] e 2 mg/mL 8-29 by mouth ity of oral 00:00: in the [facility] 00 morning. Medic al Branch lipase-prot Yes 1{capsu Take 1 U nivers ease-amylas 8-29 le} capsule by it y of e (CREON) 00:00: [place] 12,000-38,0 00 the Medical 00 -60,000 morning Branch unit and 1 capsule capsule at noon and 1 capsule in the evening. Take with meals. ARIPiprazol 2021-0 Yes [id number] 5mg Take 1 [facility] e 5 mg [...] Breath or Bronchospa sm. ketoconazol 2021-0 Yes [id number] Apply to [facility] e 2 % 8-29 area(s) ity of shampoo 00:00: [place] 00 as needed Medical for Branch Itching. escitalopra Yes [id number] 20mg Take 1 [facility] m oxalate 8-29 tablet by ity o f 20 mg 00:00: mouth in [place] tablet 00 the Medical morning. Branch pantoprazol Yes [id number] 40mg Take 20 mL [facility] e 2 [...] the evening. Take with meals. ARIPiprazol Yes [id number] 5mg Take 1 [facility] e 5 mg 8-29 tablet by ity of tablet 00:00: mouth in [place] 00 the Medical morning. Branch albuterol Yes 2.5mg Inhale 3 Uni vers 2.5 mg /3 8-29 mL every 4 ity of mL (0.083 00:00: (four) [place] %) 00 hours as Medical nebulizer needed for Bran ch solution Wheezing, Shortness of Breath or Bronchospa sm. ketoconazol Yes [id number] Apply to [facility] e 2 % 8-29 area(s) ity of shampoo 00:00: once daily [place] 00 as needed Medical for Branch Itching. escitalopra Yes [id number] 20mg Take 1 [facility] m oxalate 8-29 tablet by ity o f 20 mg 00:00: mouth in [place] tablet 00 the Medical morning. Branch pantoprazol Yes [id number] 40mg Take 20 mL [facility] e 2 mg/mL 8-29 by mouth ity of oral 00:00: in the [place] suspension 00 morning. Medic al Branch lipase-prot Yes 1{capsu Take 1 U nivers ease-amylas 8-29 le} capsule by it y of e (CREON) 00:00: [place] -,0 00 the Medical 00 -60,000 morning Branch unit and 1 capsule capsule at noon and 1 capsule in the evening. Take with meals. ARIPiprazol 2021-0 Yes [id number] 5mg Take 1 [facility] e 5 mg [...] Breath or Bronchospa sm. ketoconazol 2021-0 Yes [id number] Apply to [facility] e 2 % 8-29 area(s) ity of shampoo 00:00: [place] 00 as needed Medical for Branch Itching. escitalopra 0 Yes [id number] 20mg Take 1 [facility] m oxalate 8-29 tablet by ity o f 20 mg 00:00: mouth in [facility] 00 the Medical morning. Branch pantoprazol 0 Yes [id number] 40mg Take 20 mL [facility] e 2 mg/mL 8-29 by mouth ity of oral 00:00: in the [facility] 00 morning. Medic al Branch lipase-prot 0 Yes 1{capsu Take 1 U nivers ease-amylas 8-29 le} capsule by it y of e (CREON) 00:00: [place] 12,000-38,0 00 the Medical 00 -60,000 morning Branch unit and 1 capsule capsule at noon and 1 capsule in the evening. Take with meals. ARIPiprazol 2021-0 Yes [id number] 5mg Take 1 [facility] e 5 mg [...] Breath or Bronchospa sm. ketoconazol 2021-0 Yes [id number] Apply to [facility] e 2 % 8-29 area(s) ity of shampoo 00:00: [place] daily [place] 00 as needed Medical for Branch Itching. escitalopra Yes [id number] 20mg Take 1 [facility] m oxalate 8-29 tablet by ity o f 20 mg 00:00: mouth in [place] tablet 00 the Medical morning. Branch pantoprazol Yes [id number] 40mg Take 20 mL [facility] e 2 [...] the evening. Take with meals. ARIPiprazol Yes [id number] 5mg Take 1 [facility] e 5 mg 8-29 tablet by ity of tablet 00:00: mouth in [place] 00 the Medical morning. Branch albuterol Yes 2.5mg Inhale 3 Uni vers 2.5 mg /3 8-29 mL every 4 ity of mL (0.083 00:00: (four) [place] %) 00 hours as Medical nebulizer needed for Bran ch solution Wheezing, Shortness of Breath or Bronchospa sm. ketoconazol Yes [id number] Apply to [facility] e 2 % 8-29 area(s) ity of shampoo 00:00: once daily [place] 00 as needed Medical for Branch Itching. escitalopra Yes [id number] 20mg Take 1 [facility] m oxalate 8-29 tablet by ity o f 20 mg 00:00: mouth in [place] tablet 00 the Medical morning. Branch pantoprazol Yes [id number] 40mg Take 20 mL [facility] e 2 mg/mL 8-29 by mouth ity of oral 00:00: in the [place] suspension 00 morning. Medic al Branch lipase-prot Yes 1{capsu Take 1 U nivers ease-amylas 8-29 le} capsule by it y of e (CREON) 00:00: [place] -,0 00 the Medical 00 -60,000 morning Branch unit and 1 capsule capsule at noon and 1 capsule in the evening. Take with meals. ARIPiprazol 2021-0 Yes [id number] 5mg Take 1 [facility] e 5 mg [...] Breath or Bronchospa sm. ketoconazol 2021-0 Yes [id number] Apply to [facility] e 2 % 8-29 area(s) ity of shampoo 00:00: [place] 00 as needed Medical for Branch Itching. escitalopra 2021-0 Yes [id number] 20mg Take 1 [facility] m oxalate 8-29 tablet by ity o f 20 mg 00:00: mouth in [facility] 00 the Medical morning. Branch pantoprazol 2021-0 Yes [id number] 40mg Take 20 mL [facility] e 2 mg/mL 8-29 by mouth ity of oral 00:00: in the [facility] 00 morning. Medic al Branch lipase-prot 0 Yes 1{capsu Take 1 U nivers ease-amylas 8-29 le} capsule by it y of e (CREON) 00:00: [place] 12,000-38,[place] 00 the Medical 00 -60,000 morning Branch unit and 1 capsule capsule at noon and 1 capsule in the evening. Take with meals. ARIPiprazol 2021-0 Yes [id number] 5mg Take 1 [facility] e 5 mg [...] Breath or Bronchospa sm. ketoconazol 2021-0 Yes [id number] Apply to [facility] e 2 % 8-29 area(s) ity of shampoo 00:00: [place] 00 as needed Medical for Branch Itching. escitalopra Yes [id number] 20mg Take 1 [facility] m oxalate 8-29 tablet by ity o f 20 mg 00:00: mouth in [place] tablet 00 the Medical morning. Branch lipase-prot Yes 1{capsu Take 1 U nivers ease-amylas 8-29 le} capsule by it y of e (CREON) 00:00: [place] -,0 00 the Medical 60 morning Branch unit and 1 capsule capsule at noon and 1 capsule in the evening. Take with meals. ARIPiprazol Yes [id number] 5mg Take 1 [facility] e 5 mg 8-29 tablet by ity of tablet 00:00: mouth in [place] 00 the Medical morning. Branch albuterol Yes 2.5mg Inhale 3 Uni vers 2.5 mg /3 8-29 mL every 4 ity of mL (0.083 00:00: (four) [place] %) 00 hours as Medical nebulizer needed for Bran ch solution Wheezing, Shortness of Breath or Bronchospa sm. ketoconazol Yes [id number] Apply to [facility] e 2 % 8-29 area(s) ity of shampoo 00:00: [place] 00 as needed Medical for Branch Itching. escitalopra Yes [id number] 20mg Take 1 [facility] m oxalate 8-29 tablet by ity o f 20 mg 00:00: mouth in [place] tablet 00 the Medical morning. Branch lipase-prot Yes 1{capsu Take 1 U nivers ease-amylas 8-29 le} capsule by it y of e (CREON) 00:00: mouth in [facility] s -,0 00 the Medical 60 morning Branch unit and 1 capsule capsule at noon and 1 capsule in the evening. Take with meals. ARIPiprazol Yes [id number] 5mg Take 1 [facility] e 5 mg 8-29 tablet by ity of tablet 00:00: mouth in [place] 00 the Medical morning. Branch albuterol Yes 2.5mg Inhale 3 Uni vers 2.5 mg /3 8-29 mL every 4 ity of mL (0.083 00:00: (four) [place] %) 00 hours as Medical nebulizer needed for Bran ch solution Wheezing, Shortness of Breath or Bronchospa sm. ketoconazol Yes [id number] Apply to [facility] e 2 % 8-29 area(s) ity of shampoo 00:00: [place] daily [place] 00 as needed Medical for Branch Itching. escitalopra Yes [id number] 20mg Take 1 [facility] m oxalate 8-29 [...] the evening. Take with meals. ARIPiprazol Yes [id number] 5mg Take 1 [facility] e 5 mg 8-29 tablet by ity of tablet 00:00: mouth in [place] 00 the Medical morning. Branch albuterol Yes 2.5mg Inhale 3 Uni vers 2.5 mg /3 8-29 mL every 4 ity of mL (0.083 00:00: (four) [place] %) 00 hours as Medical nebulizer needed for Bran ch solution Wheezing, Shortness of Breath or Bronchospa sm. ketoconazol Yes [id number] Apply to [facility] e 2 % 8-29 area(s) ity of shampoo 00:00: once daily [place] 00 as needed Medical for Branch Itching. escitalopra Yes [id number] 20mg Take 1 [facility] m oxalate 8-29 tablet by ity o f 20 mg 00:00: mouth in [place] tablet 00 the Medical morning. Branch lipase-prot Yes 1{capsu Take 1 U nivers ease-amylas 8-29 le} capsule by it y of e (CREON) 00:00: [place] ,-38,[place] 00 the Medical 60,000 morning Branch unit and 1 capsule capsule at noon and 1 capsule in the evening. Take with meals. ARIPiprazol 2021-0 Yes [id number] 5mg Take 1 [facility] e 5 mg [...] Breath or Bronchospa sm. ketoconazol 2021-0 Yes [id number] Apply to [facility] e 2 % 8-29 area(s) ity of shampoo 00:00: once daily [place] 00 as needed Medical for Branch Itching. escitalopra 2021-0 Yes [id number] 20mg Take 1 [facility] m oxalate 8-29 tablet by ity o f 20 mg 00:00: mouth in [place] tablet 00 the Medical morning. Branch ARIPiprazol 2021-0 Yes [id number] 5mg Take 1 [facility] e 5 mg [...] Breath or Bronchospa sm. ketoconazol 2021-0 Yes [id number] Apply to [facility] e 2 % 8-29 area(s) ity of shampoo 00:00: once daily [place] 00 as needed Medical for Branch Itching. escitalopra 2021-0 Yes [id number] 20mg Take 1 [facility] m oxalate 8-29 tablet by ity o f 20 mg 00:00: mouth in [place] tablet 00 the Medical morning. Branch ARIPiprazol 2021-0 Yes [id number] 5mg Take 1 [facility] e 5 mg 8-29 tablet by ity of tablet 00:00: mouth in [place] 00 the Medical morning. Branch ketoconazol 2021-0 Yes [id number] Apply to [facility] e 2 % 8-29 area(s) ity of shampoo 00:00: once daily [place] 00 as needed Medical for Branch Itching. escitalopra 2021-0 Yes [id number] 20mg Take 1 [facility] m oxalate 8-29 tablet by ity o f 20 mg 00:00: mouth in [place] tablet 00 the Medical morning. Branch ARIPiprazol 2021-0 Yes [id number] 5mg Take 1 [facility] e 5 mg 8-29 tablet by ity of tablet 00:00: mouth in [place] 00 the Medical morning. Branch ketoconazol 2021-0 Yes [id number] Apply to [facility] e 2 % 8-29 area(s) ity of shampoo 00:00: once daily [place] 00 as needed Medical for Branch Itching. escitalopra 2021-0 Yes [id number] 20mg Take 1 [facility] m oxalate 8-29 tablet by ity o f 20 mg 00:00: mouth in [place] tablet 00 the Medical morning. Branch ARIPiprazol 2021-0 Yes [id number] 5mg Take 1 [facility] e 5 mg 8-29 tablet by ity of tablet 00:00: mouth in [place] 00 the Medical morning. Branch ketoconazol 2021-0 Yes [id number] Apply to [facility] e 2 % 8-29 area(s) ity of shampoo 00:00: once daily [place] 00 as needed Medical for Branch Itching. escitalopra 2021-0 Yes [id number] 20mg Take 1 [facility] m oxalate 8-29 tablet by ity o f 20 mg 00:00: mouth in [place] tablet 00 the Medical morning. Branch ARIPiprazol 2021-0 Yes [id number] 5mg Take 1 [facility] e 5 mg 8-29 tablet by ity of tablet 00:00: mouth in [place] 00 the Medical morning. Branch ketoconazol 2021-0 Yes [id number] Apply to [facility] e 2 % 8-29 area(s) ity of shampoo 00:00: once daily [place] 00 as needed Medical for Branch Itching. ARIPiprazol 2021-0 Yes [id number] 5mg Take 1 [facility] e 5 mg 8-29 tablet by ity of tablet 00:00: mouth in [place] 00 the Medical morning. Branch ketoconazol 2021-0 Yes [id number] Apply to [facility] e 2 % 8-29 area(s) ity of shampoo 00:00: once daily [place] 00 as needed Medical for Branch Itching. ARIPiprazol 2021-0 Yes [id number] 5mg Take 1 [facility] e 5 mg 8-29 tablet by ity of tablet 00:00: mouth in [place] 00 the Medical morning. Branch ketoconazol 0 Yes [id number] Apply to [facility] e 2 % 8-29 area(s) ity of shampoo 00:00: once daily [place] 00 as needed Medical for Branch Itching. ARIPiprazol 0 Yes [id number] 5mg Take 1 [facility] e 5 mg 8-29 tablet by ity of tablet 00:00: mouth in [place] 00 the Medical morning. Branch ketoconazol 0 Yes [id number] Apply to [facility] e 2 % 8-29 area(s) ity of shampoo 00:00: [place] Medical for Branch Itching. ARIPiprazol 2021-0 Yes [id number] 5mg Take 1 [facility] 5 mg 8-29 tablet by ity of tablet 00:00: mouth in [place] 00 the Medical morning. Branch ketoconazol 0 Yes [id number] Apply to [facility] e 2 % 8-29 area(s) ity of shampoo 00:00: [place] 00 as needed Medical for Branch Itching. ARIPiprazol 0 Yes [id number] 5mg Take 1 [facility] e 5 mg 8-29 tablet by ity of tablet 00:00: mouth in [place] 00 the Medical morning. Branch ketoconazol 0 Yes [id number] Apply to [facility] e 2 % 8-29 area(s) ity of shampoo 00:00: [place] 00 as needed Medical for Branch Itching. ARIPiprazol 2021-0 Yes [id number] 5mg Take 1 [facility] e 5 mg 8-29 tablet by ity of tablet 00:00: mouth in [place] 00 the Medical morning. Branch ketoconazol 2021-0 Yes [id number] Apply to [facility] e 2 % 8-29 area(s) ity of shampoo 00:00: [place] 00 as needed Medical for Branch Itching. ARIPiprazol 2021-0 Yes [id number] 5mg Take 1 [facility] e 5 mg 8-29 tablet by ity of tablet 00:00: mouth in [place] 00 the Medical morning. Branch ketoconazol Yes [id number] Apply to [facility] e 2 % 8-29 area(s) ity of shampoo 00:00: once [place] 00 as needed Medical for Branch Itching. ARIPiprazol 0 Yes [id number] 5mg Take 1 [facility] e 5 mg 8-29 tablet by ity of tablet 00:00: mouth in [place] 00 the Medical morning. Branch ketoconazol Yes [id number] Apply to [facility] e 2 % 8-29 area(s) ity of shampoo 00:00: once [place] 00 as needed Medical for Branch Itching. ARIPiprazol 0 Yes [id number] 5mg Take 1 [facility] e 5 mg 8-29 tablet by ity of tablet 00:00: mouth in [place] 00 the Medical morning. Branch ketoconazol Yes [id number] Apply to [facility] 2 % 8-29 area(s) ity of shampoo 00:00: once [place] 00 as needed Medical for Branch Itching. ARIPiprazol Yes [id number] 5mg Take 1 [facility] 5 mg 8-29 tablet by ity of tablet 00:00: mouth in [place] 00 the Medical morning. Branch ketoconazol Yes [id number] Apply to [facility] e 2 % 8-29 area(s) ity of shampoo 00:00: once [place] 00 as needed Medical for Branch Itching. ketoconazol Yes [id number] Apply to [facility] e 2 % 8-29 area(s) ity of shampoo 00:00: once [place] 00 as needed Medical for Branch Itching. ketoconazol Yes [id number] Apply to [facility] 2 % 8-29 area(s) ity of shampoo 00:00: once [place] 00 as needed Medical for Branch Itching. ketoconazol Yes [id number] Apply to [facility] e 2 % 8-29 area(s) ity of shampoo 00:00: once [place] 00 as needed Medical for Branch Itching. ketoconazol 2022- No [id number] Apply to [facility] e 2 % 11-27 area(s) ity of shampoo 00:00: 00:00 once daily [place] 00 :00 as needed Medical for Branch Itching. ARIPiprazol 2022- No [id number] 5mg Take 1 [facility] 5 mg 11-27 tablet by ity of tablet 00:00: 00:00 mouth in [place] 00 :00 the Medical morning. Branch ARIPiprazol 2022- No [id number] 5mg Take 1 [facility] 5 mg 11-27 tablet by ity of tablet 00:00: 00:00 mouth in [place] 00 :00 the Medical morning. Branch escitalopra 2022- No [id number] 20mg Take 1 [facility] m oxalate 11-27 [...] Shortness of Breath or Bronchospa sm. albuterol No 2.5mg Inhale 3 Un maddie 2.5 mg /3 11-27 07-13 mL every 4 ity of mL (0.083 00:00: 00:00 (four) [place] %) 00 :00 hours as Medical nebulizer needed for Bran ch solution Wheezing, Shortness of Breath or Bronchospa sm. lipase-prot 2022- No 1{capsu Take 1 [facility] ease-amylas 11-27-12 le} capsule by i ty of e (CREON) 00:00: 00:00 mouth in [place] 12,000-38,0 00 :00 the Medical 00 -60,000 morning Branch unit and 1 capsule capsule at noon and 1 capsule in the evening. Take with meals. pantoprazol 2022- No [id number] 40mg Take 20 mL [facility] e 2 mg/mL 11-27 by mouth ity o f oral 00:00: 00:00 in the [place] suspension 00 :00 morning. Medic al Branch pantoprazol 2022- No [id number] 40mg Take 20 mL [facility] e 2 mg/mL 11-27 by mouth ity o f oral 00:00: 00:00 in the [place] suspension 00 :00 morning. Medic al Branch gabapentin 2022- No [id number] 800mg Take 1 [facility] 800 mg 11-27 [id number] tablet by ity o f tablet 00:00: 00:00 mouth in [place] 00 :00 the Medical morning Branch and 1 tablet at noon and 1 tablet in the evening. escitalopra 2021- No [id number] 20mg Take 1 [facility] m oxalate 08-14 tablet by ity of 20 mg 00:00: 00:00 mouth [place] tablet 00 :00 daily. Medical Branch levothyroxi Yes [id number] 1 tablet [facility] ne 137 mcg 5-13 PO every ity o f tablet 00:00: other day [place] 00 Medical Branch levothyroxi Yes [id number] 1 tablet [facility] ne 137 mcg 5-13 PO every ity o f tablet 00:00: other day [place] 00 Medical Branch levothyroxi 2021- No [id number] 1 tablet [facility] ne 137 mcg 5-13 10-11 PO every ity of tablet 00:00: 00:00 other day [place] 00 :00 Medical Branch gabapentin 2021- No [id number] 800mg Take 1 [facility] 800 mg 08-09 [id number] tablet by ity o f tablet 00:00: [...] by mouth ity of tablet 13:49: at [place] 44 bedtime. Medical Branch ferrous 2021-0 Yes 300mg Take 300 Unive rs sulfate 300 4-12 mg by ity of mg (60 mg 13:49: mouth 2 [place] iron)/5 mL 44 (two) Medical solution times Branch daily. atorvastati 2022-0 Yes 80mg Take 80 mg Univers n 80 mg 4-12 by mouth ity of tablet 13:49: at [place] [address] bedtime. Medical Branch ferrous 2022-0 Yes 300mg Take 300 Unive rs sulfate 300 4-12 mg by ity of mg (60 mg 13:49: mouth 2 [place] iron)/5 mL 44 (two) Medical solution times Branch daily. atorvastati 2022-0 Yes 80mg Take 80 mg [facility] n 80 mg 4-12 by mouth ity of tablet 13:49: at [place] [address] bedtime. Medical Branch ferrous 2022-0 Yes 300mg Take 300 Unive rs sulfate 300 4-12 mg by ity of mg (60 mg 13:49: mouth 2 [place] iron)/5 mL 44 (two) Medical solution times Branch daily. atorvastati 2022-0 Yes 80mg Take 80 mg [facility] n 80 mg 4-12 by mouth ity of tablet 13:49: at [place] [address] bedtime. Medical Branch ferrous 2022-0 Yes 300mg Take 300 Unive rs sulfate 300 4-12 mg by ity of mg (60 mg 13:49: mouth 2 [place] iron)/5 mL 44 (two) Medical solution times Branch daily. atorvastati 2-0 Yes 80mg Take 80 mg [facility] n 80 mg 4-12 by mouth ity of tablet 13:49: at [place] [address] bedtime. Medical Branch ferrous 2022-0 Yes 300mg Take 300 Unive rs sulfate 300 4-12 mg by ity of mg (60 mg 13:49: mouth 2 [place] iron)/5 mL 44 (two) Medical solution times Branch daily. atorvastati 2022-0 Yes 80mg Take 80 mg [facility] n 80 mg 4-12 by mouth ity of tablet 13:49: at [place] [address] bedtime. Medical Branch ferrous 2022-0 Yes 300mg Take 300 Unive rs sulfate 300 4-12 mg by ity of mg (60 mg 13:49: mouth 2 [place] iron)/5 mL 44 (two) Medical solution times Branch daily. atorvastati 2022-0 Yes 80mg Take 80 mg [facility] n 80 mg 4-12 by mouth ity of tablet 13:49: at [place] [address] bedtime. Medical Branch ferrous 2022-0 Yes 300mg Take 300 Unive rs sulfate 300 4-12 mg by ity of mg (60 mg 13:49: mouth 2 [place] iron)/5 mL 44 (two) Medical solution times Branch daily. atorvastati 2022-0 Yes 80mg Take 80 mg [facility] n 80 mg 4-12 by mouth ity of tablet 13:49: at [place] [address] bedtime. Medical Branch ferrous 2022-0 Yes 300mg Take 300 Unive rs sulfate 300 4-12 mg by ity of mg (60 mg 13:49: mouth 2 [place] iron)/5 mL 44 (two) Medical solution times Branch daily. atorvastati 2022-0 Yes 80mg Take 80 mg [facility] n 80 mg 4-12 by mouth ity of tablet 13:49: at [place] [address] bedtime. Medical Branch ferrous 2022-0 Yes 300mg Take 300 Unive rs sulfate 300 4-12 mg by ity of mg (60 mg 13:49: mouth 2 [place] iron)/5 mL 44 (two) Medical solution times Branch daily. atorvastati 2022-0 Yes 80mg Take 80 mg [facility] n 80 mg 4-12 by mouth ity of tablet 13:49: at [place] [address] bedtime. Medical Branch ferrous 2022-0 Yes 300mg Take 300 Unive rs sulfate 300 4-12 mg by ity of mg (60 mg 13:49: mouth 2 [place] iron)/5 mL 44 (two) Medical solution times Branch daily. atorvastati 2022-0 Yes 80mg Take 80 mg [facility] n 80 mg 4-12 by mouth ity of tablet 13:49: at [place] [address] bedtime. Medical Branch ferrous 2022-0 Yes 300mg Take 300 Unive rs sulfate 300 4-12 mg by ity of mg (60 mg 13:49: mouth 2 [place] iron)/5 mL 44 (two) Medical solution times Branch daily. atorvastati 2022-0 Yes 80mg Take 80 mg [facility] n 80 mg 4-12 by mouth ity of tablet 13:49: at [place] [address] bedtime. Medical Branch ferrous 2022-0 Yes 300mg Take 300 Unive rs sulfate 300 4-12 mg by ity of mg (60 mg 13:49: mouth 2 [place] iron)/5 mL 44 (two) Medical solution times Branch daily. atorvastati 2022-0 Yes 80mg Take 80 mg [facility] n 80 mg 4-12 by mouth ity of tablet 13:49: at [place] [address] bedtime. Medical Branch ferrous 2022-0 Yes 300mg Take 300 Unive rs sulfate 300 4-12 mg by ity of mg (60 mg 13:49: mouth 2 [place] iron)/5 mL 44 (two) Medical solution times Branch daily. atorvastati 2022-0 Yes 80mg Take 80 mg [facility] n 80 mg 4-12 by mouth ity of tablet 13:49: at [place] [address] bedtime. Medical Branch ferrous 2022-0 Yes 300mg Take 300 Unive rs sulfate 300 4-12 mg by ity of mg (60 mg 13:49: mouth 2 [place] iron)/5 mL 44 (two) Medical solution times Branch daily. atorvastati 2022-0 Yes 80mg Take 80 mg [facility] n 80 mg 4-12 by mouth ity of tablet 13:49: at [place] [address] bedtime. Medical Branch ferrous 2022-0 Yes 300mg Take 300 Unive rs sulfate 300 4-12 mg by ity of mg (60 mg 13:49: mouth 2 [place] iron)/5 mL 44 (two) Medical solution times Branch daily. atorvastati 2022-0 Yes 80mg Take 80 mg [facility] n 80 mg 4-12 by mouth ity of tablet 13:49: at [place] [address] bedtime. Medical Branch ferrous 2022-0 Yes 300mg Take 300 Unive rs sulfate 300 4-12 mg by ity of mg (60 mg 13:49: mouth 2 [place] iron)/5 mL 44 (two) Medical solution times Branch daily. atorvastati 2022-0 Yes 80mg Take 80 mg [facility] n 80 mg 4-12 by mouth ity of tablet 13:49: at [place] [address] bedtime. Medical Branch ferrous 2022-0 Yes 300mg Take 300 Unive rs sulfate 300 4-12 mg by ity of mg (60 mg 13:49: mouth 2 [place] iron)/5 mL 44 (two) Medical solution times Branch daily. atorvastati 2022-0 Yes 80mg Take 80 mg [facility] n 80 mg 4-12 by mouth ity of tablet 13:49: at [place] [address] bedtime. Medical Branch ferrous 2022-0 Yes 300mg Take 300 Unive rs sulfate 300 4-12 mg by ity of mg (60 mg 13:49: mouth 2 [place] iron)/5 mL 44 (two) Medical solution times Branch daily. atorvastati 2-0 Yes 80mg Take 80 mg [facility] n 80 mg 4-12 by mouth ity of tablet 13:49: at [place] [address] bedtime. Medical Branch ferrous 202-0 Yes 300mg Take 300 Unive rs sulfate 300 4-12 mg by ity of mg (60 mg 13:49: mouth 2 [place] iron)/5 mL 44 (two) Medical solution times Branch daily. atorvastati 2021-0 Yes 80mg Take 80 mg [facility] n 80 mg 4-12 by mouth ity of tablet 13:49: at [place] [address] bedtime. Medical Branch ferrous 2021-0 Yes 300mg Take 300 Unive rs sulfate 300 4-12 mg by ity of mg (60 mg 13:49: mouth 2 [place] iron)/5 mL 44 (two) Medical solution times Branch daily. atorvastati 2021-0 Yes 80mg Take 80 mg [facility] n 80 mg 4-12 by mouth ity of tablet 13:49: at [place] [address] bedtime. Medical Branch atorvastati 2021-0 Yes 80mg Take 80 mg [facility] n 80 mg 4-12 by mouth ity of tablet 13:49: at [place] [address] bedtime. Medical Branch atorvastati 2021-0 Yes 80mg Take 80 mg [facility] n 80 mg 4-12 by mouth ity of tablet 13:49: at [place] [address] bedtime. Medical Branch atorvastati 2021-0 Yes 80mg Take 80 mg [facility] n 80 mg 4-12 by mouth ity of tablet 13:49: at [place] [address] bedtime. Medical Branch atorvastati 2021-0 Yes 80mg Take 80 mg [facility] n 80 mg 4-12 by mouth ity of tablet 13:49: at [place] [address] bedtime. Medical Branch atorvastati 2-0 Yes 80mg Take 80 mg [facility] n 80 mg 4-12 by mouth ity of tablet 13:49: at [place] [address] bedtime. Medical Branch atorvastati 2-0 Yes 80mg Take 80 mg [facility] n 80 mg 4-12 by mouth ity of tablet 13:49: at [place] [address] bedtime. Medical Branch atorvastati 2-0 Yes 80mg Take 80 mg [facility] n 80 mg 4-12 by mouth ity of tablet 13:49: at [place] [address] bedtime. Medical Branch atorvastati Yes 80mg Take 80 mg [facility] n 80 mg 4-12 by mouth ity of tablet 13:49: at [place] [address] bedtime. Medical Branch atorvastati Yes 80mg Take 80 mg [facility] n 80 mg 4-12 by mouth ity of tablet 13:49: at [place] [address] bedtime. Medical Branch atorvastati Yes 80mg Take 80 mg [facility] n 80 mg 4-12 by mouth ity of tablet 13:49: at [place] [address] bedtime. Medical Branch gabapentin 2021- No [id number] 600mg Take 1 [facility] 600 mg -11-27 [id number] tablet by ity o f tablet 00:00: 00:00 mouth 3 [place] 00 :00 (three) Medical times Branch daily. pantoprazol 2021- No [id number] 40mg Take 20 mL [facility] e 2 mg/mL 06-13 by mouth ity o f oral 00:00: 00:00 daily. [place] suspension 00 :00 Medical Branch oxyCODONE 2020-04 Yes [id number] 10mg Take 1 Univer s CR 10 mg 12 1-03 tablet by ity of hr tablet 00:00: mouth [place] 00 every 12 Medical (twelve) Branch hours as needed for Pain. PRN Indication s: acute pain oxyCODONE 2020-04 Yes [id number] 10mg Take 1 Un[facility] s CR 10 mg 12 1-03 tablet by ity of hr tablet 00:00: mouth [place] 00 every 12 Medical (twelve) Branch hours as needed for Pain. PRN Indication s: acute pain oxyCODONE 2020-04 Yes [id number] 10mg Take 1 Un[facility] s CR 10 mg 12 1-03 tablet by ity of hr tablet 00:00: mouth [place] 00 every 12 Medical (twelve) Branch hours as needed for Pain. PRN Indication s: acute pain oxyCODONE 2020-04 Yes [id number] 10mg Take 1 Un[facility] s CR 10 mg 12 1-03 tablet by ity of hr tablet 00:00: mouth [place] 00 every 12 Medical (twelve) Branch hours [...] Unive rs CR 10 mg 12 04-03 tablet by it y of hr tablet 00:00: 00:00 mouth [place] 00 :00 every 12 Medical (twelve) Branch hours as needed for Pain. PRN Indication s: acute pain lipase-prot 2020-04- No [id number] 1{capsu Take 1 [facility] ease-amylas 04-03 le} capsule by i ty of e (CREON) 00:00: 00:00 mouth 3 [place] 12,000-38,0 00 :00 (three) Medic al 00 -60,000 times Branch unit daily with capsule meals. ARIPiprazol 2020-04- No [id number] 5mg Take 1 [facility] e 5 mg 0-10 11-27 tablet by ity of tablet 00:00: 00:00 mouth [place] 00 :00 daily. Medical Branch dicyclomine 2020-04 Yes [id number] 20mg Take 1 [facility] 20 mg 0-09 tablet by ity of tablet 00:00: mouth as [place] 00 needed for Medical Abdominal Branch pain. dicyclomine 2020-04 Yes [id number] 20mg Take 1 [facility] 20 mg 0-09 tablet by ity of tablet 00:00: mouth as [place] 00 needed for Medical Abdominal Branch pain. dicyclomine 2020-04 Yes [id number] 20mg Take 1 [facility] 20 mg 0-09 tablet by ity of tablet 00:00: mouth as [place] 00 needed for Medical Abdominal Branch pain. dicyclomine 2020-04 Yes [id number] 20mg Take 1 [facility] 20 mg 0-09 tablet by ity of tablet 00:00: mouth as [place] 00 needed for Medical Abdominal Branch pain. dicyclomine 2020-04 Yes [id number] 20mg Take 1 [facility] 20 mg 0-09 tablet by ity of tablet 00:00: mouth as [place] 00 needed for Medical Abdominal Branch pain. dicyclomine 2020-04 Yes [id number] 20mg Take 1 [facility] 20 mg 0-09 tablet by ity of tablet 00:00: mouth as [place] 00 needed for Medical Abdominal Branch pain. dicyclomine 2020-04 Yes [id number] 20mg Take 1 [facility] 20 mg 0-09 tablet by ity of tablet 00:00: mouth as [place] 00 needed for Medical Abdominal Branch pain. dicyclomine 2020-04 Yes [id number] 20mg Take 1 [facility] 20 mg 0-09 tablet by ity of tablet 00:00: mouth as [place] 00 needed for Medical Abdominal Branch pain. dicyclomine 2020-04 Yes [id number] 20mg Take 1 [facility] 20 mg 0-09 tablet by ity of tablet 00:00: mouth as [place] 00 needed for Medical Abdominal Branch pain. dicyclomine 2020-04 Yes [id number] 20mg Take 1 [facility] 20 mg 0-09 tablet by ity of tablet 00:00: mouth as [place] 00 needed for Medical Abdominal Branch pain. dicyclomine 2020-04 Yes [id number] 20mg Take 1 [facility] 20 mg 0-09 tablet by ity of tablet 00:00: mouth as [place] 00 needed for Medical Abdominal Branch pain. dicyclomine 2020-04 Yes [id number] 20mg Take 1 [facility] 20 mg 0-09 tablet by ity of tablet 00:00: mouth as [place] 00 needed for Medical Abdominal Branch pain. dicyclomine 2020-04 Yes [id number] 20mg Take 1 [facility] 20 mg 0-09 tablet by ity of tablet 00:00: mouth as [place] 00 needed for Medical Abdominal Branch pain. dicyclomine 2020-04 Yes [id number] 20mg Take 1 [facility] 20 mg 0-09 tablet by ity of tablet 00:00: mouth as [place] 00 needed for Medical Abdominal Branch pain. dicyclomine 2020-04 Yes [id number] 20mg Take 1 [facility] 20 mg 0-09 tablet by ity of tablet 00:00: mouth as [place] 00 needed for Medical Abdominal Branch pain. dicyclomine 2020-04 Yes [id number] 20mg Take 1 [facility] 20 mg 0-09 tablet by ity of tablet 00:00: mouth as [place] 00 needed for Medical Abdominal Branch pain. dicyclomine 2020-04 Yes [id number] 20mg Take 1 [facility] 20 mg 0-09 tablet by ity of tablet 00:00: mouth as [place] 00 needed for Medical Abdominal Branch pain. dicyclomine 2020-04 Yes [id number] 20mg Take 1 [facility] 20 mg 0-09 tablet by ity of tablet 00:00: mouth as [place] 00 needed for Medical Abdominal Branch pain. dicyclomine 2020-04 Yes [id number] 20mg Take 1 [facility] 20 mg 0-09 tablet by ity of tablet 00:00: mouth as [place] 00 needed for Medical Abdominal Branch pain. dicyclomine 2020-04 Yes [id number] 20mg Take 1 [facility] 20 mg 0-09 tablet by ity of tablet 00:00: mouth as [place] 00 needed for Medical Abdominal Branch pain. dicyclomine 2020-04 Yes [id number] 20mg Take 1 [facility] 20 mg 0-09 tablet by ity of tablet 00:00: mouth as [place] 00 needed for Medical Abdominal Branch pain. dicyclomine 2020-04- No [id number] 20mg Take 1 [facility] 20 mg 0-09 06-30 tablet by ity of tablet 00:00: 00:00 mouth as [place] 00 :00 needed for Medical Abdominal Branch pain. dicyclomine 2020-04- No [id number] 20mg Take 1 [facility] 20 mg 0-09 [...] -acetaminop 3-23 tablet by [facility] 00:[facility]: mouth Medica l 7.5-325) 00 every 6 Center 7.5-325 mg (six) per tablet hours as needed for Pain. Max Daily Amount: 4 tablets HYDROcodone Yes 1{tbl} Take [address] -acetaminop 3-23 tablet by [facility] ([place] 00:[facility]: mouth Medica l 7.5-325) 00 every 6 Center 7.5-325 mg (six) per tablet hours as needed for Pain. Max Daily Amount: 4 tablets HYDROcodone Yes 1{tbl} Take [address] -acetaminop 3-23 tablet by [facility] ([place] 00:00: mouth Medica l 7.5-325) 00 every 6 Center 7.5-325 mg (six) per tablet hours as needed for Pain. Max Daily Amount: 4 tablets HYDROcodone Yes 1{tbl} Take [address] -acetaminop 3-23 tablet by [facility] ([place] 00:[facility]: mouth Medica l 7.5-325) 00 every 6 Center 7.5-325 mg (six) per tablet hours as needed for Pain. Max Daily Amount: 4 tablets HYDROcodone Yes 1{tbl} Take [address] -acetaminop 3-23 tablet by [facility] ([place] 00:00: mouth Medica l 7.5-325) 00 every 6 Center 7.5-325 mg (six) per tablet hours as needed for Pain. Max Daily Amount: 4 tablets BuPROPion BuPROPion Yes [place] 1 tablet Common HCl ER HCl ER 9-17 [facility] (Sm[facility] (Smoking 00:00: morning - [facility] Det) Det) 00 [facility] Hydrocodone Hydrocodone Yes Chandrak[place] 1 tablet Common -Acetaminop -Acetaminop [place] as needed [facility] Xanax Xanax Yes [place] 1 tablet Common [facility] Zofran Zofran Yes [place] 1 tablet Commo n [facility] Immunizations Ordered Filled Date Status Comments Source Immunization Name Immunization Name Influenza Virus 2022-10-08 Completed [facility] Vaccine - Whole 00:00:00 [facility] Influenza Virus 2022-10-08 Completed [facility] of Vaccine - Whole 00:00:00 [facility] Influenza Virus 2022-10-08 Completed [facility] of Vaccine - Whole 00:00:00 [facility] Influenza Virus 2022-10-08 Completed [facility]it y of Vaccine - Whole 00:00:00 [facility] Influenza Virus 2022-10-08 Completed [facility] y of Vaccine - Whole 00:00:00 [facility] Influenza Virus 2022-10-08 Completed [facility]it y of Vaccine - Whole 00:00:00 [facility] Influenza Virus 2022-10-08 Completed [facility]it y of Vaccine - Whole 00:00:00 [facility] Influenza Virus 2022-10-08 Completed [facility] y of Vaccine - Whole 00:00:00 [facility] Influenza Virus 2022-10-08 Completed [facility]it y of Vaccine - Whole 00:00:00 [facility] Influenza Virus 2022-10-08 Completed [facility]it y of Vaccine - Whole 00:00:00 [facility] Influenza Virus 2022-10-08 Completed [facility]it y of Vaccine - Whole 00:00:00 [facility] Influenza Virus 2022-10-08 Completed Universit y of Vaccine - Whole 00:00:00 [facility] Influenza Virus 2022-10-08 Completed Universit y of Vaccine - Whole 00:00:00 [facility] Influenza Virus 2022-10-08 Completed Universit y of Vaccine - Whole 00:00:00 [facility] Influenza Virus 2022-10-08 Completed Universit y of Vaccine - Whole 00:00:00 [facility] Influenza Virus 2022-10-08 Completed Universit y of Vaccine - Whole 00:00:00 [facility] Influenza Virus 2022-10-08 Completed Universit y of Vaccine - Whole 00:00:00 [facility] Influenza Virus 2022-10-08 Completed Universit y of Vaccine - Whole 00:00:00 [facility] Influenza Virus 2022-10-08 Completed Universit y of Vaccine - Whole 00:00:00 [facility] Influenza Virus 2022-10-08 Completed Universit y of Vaccine - Whole 00:00:00 [facility] Influenza Virus 2022-10-08 Completed Universit y of Vaccine - Whole 00:00:00 [facility] Influenza Virus 2022-10-08 Completed Universit y of Vaccine - Whole 00:00:00 [facility] Influenza Virus 2022-10-08 Completed Universit y of Vaccine - Whole 00:00:00 [facility] Influenza Virus 2022-10-08 Completed Universit y of Vaccine - Whole 00:00:00 [facility] Branch Pneumococcal 20 2022-08-28 Completed Universit y of Conjugate, PCV20 00:00:00 [facility] dical (Prevnar 20) Branch SARS-COV-2 COVID-19 2022-08-28 Completed Unive rsity of ANTONI-SUCROSE 00:00:00 [place] [facility] l VACCINE 12 YRS+, Branch BIVALENT 0.3ML, IM, (PFIZER ARROYO TOP) Pneumococcal 20 2022-08-28 Completed Universit y of Conjugate, PCV20 00:00:00 [facility] dical (Prevnar 20) Branch SARS-COV-2 COVID-19 2022-08-28 Completed Unive rsity of ANTONI-SUCROSE 00:00:00 [place] Medica l VACCINE 12 YRS+, Branch BIVALENT 0.3ML, IM, (PFIZER ARROYO TOP) Pneumococcal 20 2022-08-28 Completed Universit y of Conjugate, PCV20 00:00:00 [facility] dical (Prevnar 20) Branch SARS-COV-2 COVID-19 2022-08-28 Completed Unive rsity of ANTONI-SUCROSE 00:00:00 [place] Medica l VACCINE 12 YRS+, Branch BIVALENT 0.3ML, IM, (PFIZER ARROYO TOP) Pneumococcal 20 2022-08-28 Completed Universit y of Conjugate, PCV20 00:00:00 [facility] dical (Prevnar 20) Branch SARS-COV-2 COVID-19 2022-08-28 Completed Unive rsity of ANTONI-SUCROSE 00:00:00 [place] Medica l VACCINE 12 YRS+, Branch BIVALENT [...] Universit y of Conjugate, PCV20 00:00:00 [place] [facility] dical (Prevnar 20) Branch SARS-COV-2 COVID-19 2022-08-28 [...] Completed Universit y of Conjugate, PCV20 00:00:00 [place] [facility] dical (Prevnar 20) Branch SARS-COV-2 COVID-19 2022-08-28 Completed Unive rsity of ANTONI-SUCROSE 00:00:00 [place] Medica l VACCINE 12 YRS+, Branch BIVALENT 0.3ML, IM, (PFIZER ARROYO TOP) Pneumococcal 20 2022-08-28 Completed Universit y of Conjugate, PCV20 00:00:00 [place] Me dical (Prevnar 20) Branch SARS-COV-2 COVID-19 2022-08-28 Completed Unive rsity of ANTONI-SUCROSE 00:00:00 [place] Medica l VACCINE 12 YRS+, Branch BIVALENT 0.3ML, IM, (PFIZER ARROYO TOP) SARS-COV-2 COVID-19 2020-09-20 Completed Unive rsity of ADI/J&J VACCINE 00:00:00 [facility] SARS-COV-2 COVID-19 2020-09-20 Completed Unive rsity of ADI/J&J VACCINE 00:00:00 [facility] SARS-COV-2 COVID-19 2020-09-20 Completed Unive rsity of ADI/J&J VACCINE 00:00:00 [facility] SARS-COV-2 COVID-19 2020-09-20 Completed Unive rsity of ADI/J&J VACCINE 00:00:00 [facility] SARS-COV-2 COVID-19 2020-09-20 Completed Unive rsity of ADI/J&J VACCINE 00:00:00 [facility] SARS-COV-2 COVID-19 2020-09-20 Completed Unive rsity of ADI/J&J VACCINE 00:00:00 [facility] SARS-COV-2 COVID-19 2020-09-20 Completed Unive rsity of ADI/J&J VACCINE 00:00:00 [facility] SARS-COV-2 COVID-19 2020-09-20 Completed Unive rsity of ADI/J&J VACCINE 00:00:00 [facility] SARS-COV-2 COVID-19 2020-09-20 Completed Unive rsity of ADI/J&J VACCINE 00:00:00 [facility] SARS-COV-2 COVID-19 2020-09-20 Completed Unive rsity of ADI/J&J VACCINE 00:00:00 [facility] SARS-COV-2 COVID-19 2020-09-20 Completed Unive rsity of ADI/J&J VACCINE 00:00:00 [facility] SARS-COV-2 COVID-19 2020-09-20 Completed Unive rsity of ADI/J&J VACCINE 00:00:00 [facility] SARS-COV-2 COVID-19 2020-09-20 Completed Unive rsity of ADI/J&J VACCINE 00:00:00 [facility] SARS-COV-2 COVID-19 2020-09-20 Completed Unive rsity of ADI/J&J VACCINE 00:00:00 [facility] SARS-COV-2 COVID-19 2020-09-20 Completed Unive rsity of ADI/J&J VACCINE 00:00:00 [facility] SARS-COV-2 COVID-19 2020-09-20 Completed Unive rsity of ADI/J&J VACCINE 00:00:00 [facility] SARS-COV-2 COVID-19 2020-09-20 Completed Unive rsity of ADI/J&J VACCINE 00:00:00 [facility] SARS-COV-2 COVID-19 2020-09-20 Completed Unive rsity of ADI/J&J VACCINE 00:00:00 [facility] SARS-COV-2 COVID-19 2020-09-20 Completed Unive rsity of ADI/J&J VACCINE 00:00:00 [facility] SARS-COV-2 COVID-19 2020-09-20 Completed Unive rsity of DAI/J&J VACCINE 00:00:00 [facility] SARS-COV-2 COVID-19 2020-09-20 Completed Unive rsity of ADI/J&J VACCINE 00:00:00 [facility] SARS-COV-2 COVID-19 2020-09-20 Completed Unive rsity of ADI/J&J VACCINE 00:00:00 [facility] SARS-COV-2 COVID-19 2020-09-20 Completed Unive rsity of ADI/J&J VACCINE 00:00:00 [facility] SARS-COV-2 COVID-19 2020-09-20 Completed Unive rsity of ADI/J&J VACCINE 00:00:00 [facility] SARS-COV-2 COVID-19 2020-09-20 Completed Unive rsity of ADI/J&J VACCINE 00:00:00 [facility] SARS-COV-2 COVID-19 2020-09-20 Completed Unive rsity of ADI/J&J VACCINE 00:00:00 [facility] SARS-COV-2 COVID-19 2020-09-20 Completed Unive rsity of ADI/J&J VACCINE 00:00:00 [facility] SARS-COV-2 COVID-19 2020-09-20 Completed Unive rsity of ADI/J&J VACCINE 00:00:00 [facility] SARS-COV-2 COVID-19 2020-09-20 Completed Unive rsity of ADI/J&J VACCINE 00:00:00 [facility] SARS-COV-2 COVID-19 2020-09-20 Completed Unive rsity of ADI/J&J VACCINE 00:00:00 [facility] SARS-COV-2 COVID-19 2020-09-20 Completed Unive rsity of ADI/J&J VACCINE 00:00:00 [facility] SARS-COV-2 COVID-19 2020-09-20 Completed Unive rsity of ADI/J&J VACCINE 00:00:00 [facility] SARS-COV-2 COVID-19 2020-09-20 Completed Unive rsity of ADI/J&J VACCINE 00:00:00 [facility] SARS-COV-2 COVID-19 2020-09-20 Completed Unive rsity of ADI/J&J VACCINE 00:00:00 [facility] SARS-COV-2 COVID-19 2020-09-20 Completed Unive rsity of ADI/J&J VACCINE 00:00:00 [facility] SARS-COV-2 COVID-19 2020-09-20 Completed Unive rsity of ADI/J&J VACCINE 00:00:00 [facility] SARS-COV-2 COVID-19 2020-09-20 Completed Unive rsity of ADI/J&J VACCINE 00:00:00 [facility] SARS-COV-2 COVID-19 2020-09-20 Completed Unive rsity of ADI/J&J VACCINE 00:00:00 [facility] SARS-COV-2 COVID-19 2020-09-20 Completed Unive rsity of ADI/J&J VACCINE 00:00:00 [facility] SARS-COV-2 COVID-19 2020-09-20 Completed Unive rsity of ADI/J&J VACCINE 00:00:00 [facility] SARS-COV-2 COVID-19 2020-09-20 Completed Unive rsity of ADI/J&J VACCINE 00:00:00 [facility] SARS-COV-2 COVID-19 2020-09-20 Completed Unive rsity of ADI/J&J VACCINE 00:00:00 [facility] SARS-COV-2 COVID-19 2020-09-20 Completed Unive rsity of ADI/J&J VACCINE 00:00:00 [facility] SARS-COV-2 COVID-19 2020-09-20 Completed Unive rsity of ADI/J&J VACCINE 00:00:00 [facility] SARS-COV-2 COVID-19 2020-09-20 Completed Unive rsity of ADI/J&J VACCINE 00:00:00 [facility] SARS-COV-2 COVID-19 2020-09-20 Completed Unive rsity of ADI/J&J VACCINE 00:00:00 [facility] SARS-COV-2 COVID-19 2020-09-20 Completed Unive rsity of ADI/J&J VACCINE 00:00:00 [facility] SARS-COV-2 COVID-19 2020-09-20 Completed Unive rsity of ADI/J&J VACCINE 00:00:00 [facility] SARS-COV-2 COVID-19 2020-09-20 Completed Unive rsity of ADI/J&J VACCINE 00:00:00 [facility] SARS-COV-2 COVID-19 2020-09-20 Completed Unive rsity of ADI/J&J VACCINE 00:00:00 [facility] SARS-COV-2 COVID-19 2020-09-20 Completed Unive rsity of ADI/J&J VACCINE 00:00:00 [facility] SARS-COV-2 COVID-19 2020-09-20 Completed Unive rsity of ADI/J&J VACCINE 00:00:00 [facility] SARS-COV-2 COVID-19 2020-09-20 Completed Unive rsity of ADI/J&J VACCINE 00:00:00 [facility] SARS-COV-2 COVID-19 2020-09-20 Completed Unive rsity of ADI/J&J VACCINE 00:00:00 [facility] SARS-COV-2 COVID-19 2020-09-20 Completed Unive rsity of ADI/J&J VACCINE 00:00:00 [facility] Influenza Virus 2020-01-11 Completed Universit y of [...] y of Vaccine Quad .5 mL 00:00:00 [facility] 6+ MO Branch (FLUZONE/FLULAVAL/F LUARIX) Influenza Virus 2020-01-11 Completed Universit y of Vaccine Quad .5 mL 00:00:00 [facility] 6+ [facility] (FLUZONE/FLULAVAL/F LUARIX) Influenza Virus 2020-01-11 Completed Universit y of Vaccine Quad .5 mL 00:00:00 [facility] 6+ MO [facility] (FLUZONE/FLULAVAL/F LUARIX) Influenza Virus 2020-01-11 Completed Universit y of Vaccine Quad .5 mL 00:00:00 [facility] 6+ MO Branch (FLUZONE/FLULAVAL/F LUARIX) TDAP (ADACEL) 2019-04-28 Completed University of VACCINE 00:00:00 [facility] TDAP (ADACEL) 2019-04-28 Completed University of VACCINE 00:00:00 [facility] TDAP (ADACEL) 2019-04-28 Completed University of VACCINE 00:00:00 [facility] TDAP (ADACEL) 2019-04-28 Completed University of VACCINE 00:00:00 [facility] TDAP (ADACEL) 2019-04-28 Completed University of VACCINE 00:00:00 [facility] TDAP (ADACEL) 2019-04-28 Completed University of VACCINE 00:00:00 [facility] TDAP (ADACEL) 2019-04-28 Completed University of VACCINE 00:00:00 [facility] TDAP (ADACEL) 2019-04-28 Completed University of VACCINE 00:00:00 [facility] TDAP (ADACEL) 2019-04-28 Completed University of VACCINE 00:00:00 [facility] TDAP (ADACEL) 2019-04-28 Completed University of VACCINE 00:00:00 [facility] TDAP (ADACEL) 2019-04-28 Completed University of VACCINE 00:00:00 [facility] TDAP (ADACEL) 2019-04-28 Completed University of VACCINE 00:00:00 [facility] TDAP (ADACEL) 2019-04-28 Completed University of VACCINE 00:00:00 [facility] TDAP (ADACEL) 2019-04-28 Completed University of VACCINE 00:00:00 [facility] TDAP (ADACEL) 2019-04-28 Completed University of VACCINE 00:00:00 [facility] TDAP (ADACEL) 2019-04-28 Completed University of VACCINE 00:00:00 [facility] TDAP (ADACEL) 2019-04-28 Completed University of VACCINE 00:00:00 [facility] TDAP (ADACEL) 2019-04-28 Completed University of VACCINE 00:00:00 [facility] TDAP (ADACEL) 2019-04-28 Completed University of VACCINE 00:00:00 [facility] TDAP (ADACEL) 2019-04-28 Completed University of VACCINE 00:00:00 [facility] TDAP (ADACEL) 2019-04-28 Completed University of VACCINE 00:00:00 [facility] TDAP (ADACEL) 2019-04-28 Completed University of VACCINE 00:00:00 [facility] TDAP (ADACEL) 2019-04-28 Completed University of VACCINE 00:00:00 [facility] TDAP (ADACEL) 2019-04-28 Completed University of VACCINE 00:00:00 [facility] TDAP (ADACEL) 2019-04-28 Completed University of VACCINE 00:00:00 [facility] TDAP (ADACEL) 2019-04-28 Completed University of VACCINE 00:00:00 [facility] TDAP (ADACEL) 2019-04-28 Completed University of VACCINE 00:00:00 [facility] TDAP (ADACEL) 2019-04-28 Completed University of VACCINE 00:00:00 [facility] TDAP (ADACEL) 2019-04-28 Completed University of VACCINE 00:00:00 [facility] TDAP (ADACEL) 2019-04-28 Completed University of VACCINE 00:00:00 [facility] TDAP (ADACEL) 2019-04-28 Completed University of VACCINE 00:00:00 [facility] TDAP (ADACEL) 2019-04-28 Completed University of VACCINE 00:00:00 [facility] TDAP (ADACEL) 2019-04-28 Completed University of VACCINE 00:00:00 [facility] TDAP (ADACEL) 2019-04-28 Completed University of VACCINE 00:00:00 [facility] TDAP (ADACEL) 2019-04-28 Completed University of VACCINE 00:00:00 [facility] TDAP (ADACEL) 2019-04-28 Completed University of VACCINE 00:00:00 [facility] TDAP (ADACEL) 2019-04-28 Completed University of VACCINE 00:00:00 [facility] TDAP (ADACEL) 2019-04-28 Completed University of VACCINE 00:00:00 [facility] TDAP (ADACEL) 2019-04-28 Completed University of VACCINE 00:00:00 [facility] TDAP (ADACEL) 2019-04-28 Completed University of VACCINE 00:00:00 [facility] TDAP (ADACEL) 2019-04-28 Completed University of VACCINE 00:00:00 [facility] TDAP (ADACEL) 2019-04-28 Completed University of VACCINE 00:00:00 [facility] TDAP (ADACEL) 2019-04-28 Completed University of VACCINE 00:00:00 [facility] TDAP (ADACEL) 2019-04-28 Completed University of VACCINE 00:00:00 [facility] TDAP (ADACEL) 2019-04-28 Completed University of VACCINE 00:00:00 [facility] TDAP (ADACEL) 2019-04-28 Completed University of VACCINE 00:00:00 [facility] TDAP (ADACEL) 2019-04-28 Completed University of VACCINE 00:00:00 [facility] TDAP (ADACEL) 2019-04-28 Completed University of VACCINE 00:00:00 [facility] TDAP (ADACEL) 2019-04-28 Completed University of VACCINE 00:00:00 [facility] TDAP (ADACEL) 2019-04-28 Completed University of VACCINE 00:00:00 [facility] TDAP (ADACEL) 2019-04-28 Completed University of VACCINE 00:00:00 [facility] TDAP (ADACEL) 2019-04-28 Completed University of VACCINE 00:00:00 [facility] TDAP (ADACEL) 2019-04-28 Completed University of VACCINE 00:00:00 [facility] TDAP (ADACEL) 2019-04-28 Completed University of VACCINE 00:00:00 [facility] TDAP (ADACEL) 2019-04-28 Completed University of VACCINE 00:00:00 [facility] TDAP (ADACEL) Unknown Completed [facility] Influenza Virus Unknown Completed Universit y of Vaccine Quad .5 mL [facility] IM 6+ MO Branch (FLUZONE/FLULAVAL/F LUARIX) SARS-COV-2 COVID-19 Unknown Completed Unive rsity of ADI/J&J VACCINE [facility] Pneumococcal 20 Unknown Completed Universit y of Conjugate, PCV20 [facility] (Prevnar 20) Branch SARS-COV-2 COVID-19 Unknown Completed Unive rsity of [facility] VACCINE 12 YRS+, Branch BIVALENT 0.3ML, IM, (PFIZER ARROYO TOP) Influenza Virus Unknown Completed [facility] ([facility]EL) Unknown Completed [facility] Influenza Virus Unknown Completed Universit y of Vaccine Quad .5 mL [facility] IM 6+ MO Branch (FLUZONE/FLULAVAL/F LUARIX) SARS-COV-2 COVID-19 Unknown Completed Unive rsity of ADI/J&J VACCINE [facility] Pneumococcal 20 Unknown Completed Universit y of Conjugate, PCV20 [facility] (Prevnar 20) Branch SARS-COV-2 COVID-19 Unknown Completed Unive rsity of [facility] VACCINE 12 YRS+, Branch BIVALENT 0.3ML, IM, (PFIZER ARROYO TOP) Influenza Virus Unknown Completed Universit y of Vaccine - Whole [facility] ical Branch TDAP (ADACEL) Unknown Completed [facility] Influenza Virus Unknown Completed Universit y of Vaccine Quad .5 mL [facility] 6[facility] (FLUZONE/FLULAVAL/F LUARIX) SARS-COV-2 COVID-19 Unknown Completed Unive rsity of ADI/J&J VACCINE [facility] Pneumococcal 20 Unknown Completed Universit y of Conjugate, PCV20 [facility] (Prevnar 20) Branch SARS-COV-2 COVID-19 Unknown Completed Un[facility] rsity of [facility]ACCINE 12 YRS+, Branch BIVALENT 0.3ML, IM, (PFIZER ARROYO TOP) Influenza Virus Unknown Completed Universit y of Vaccine - Whole [facility] ical Branch Vital Signs Vital Name Observation Time Observation Value Comments Source Systolic blood 2022-12-18 17:36:00 111 mm[Hg] Univer sity of pressure [facility] Diastolic blood 2022-12-18 17:36:00 65 mm[Hg] Unive rsity of [facility] Heart rate 2022-12-18 17:36:00 67 /min Universi ty of [facility] Body height 2022-12-18 17:36:00 180.3 cm Universi ty of [facility] Body weight 2022-12-18 17:36:00 82.192 kg Universi ty of [facility] BMI 2022-12-18 17:36:00 25.27 kg/m2 Universi ty [facility] Oxygen saturation in 2022-12-18 17:36:00 98 /min University of Arterial blood by [facility] Pulse oximetry Branch Respiratory rate 2022-11-30 12:40:00 18 /min Univ ersity of [facility] Oxygen saturation in 2022-11-30 12:40:00 96 /min University of Arterial blood by [facility] Pulse oximetry Branch Systolic blood 2022-11-30 12:39:00 114 mm[Hg] Univer sity of [facility] Diastolic blood 2022-11-30 12:39:00 65 mm[Hg] Unive rsity of [facility] Heart rate 2022-11-30 12:39:00 52 /min Universi ty of [facility] Body temperature 2022-11-30 12:39:00 36.22 Leda Univ ersity of [facility] Body weight 2022-11-30 07:51:00 81.965 kg Universi ty of [facility] BMI 2022-11-30 07:51:00 25.20 kg/m2 Universi ty of [facility] Body height 2022-11-28 23:32:00 180.3 cm Universi ty of [facility] Systolic blood 2022-11-22 17:54:00 136 mm[Hg] Univer sity of pressure [facility] Diastolic blood 2022-11-22 17:54:00 85 mm[Hg] Unive rsity of pressure [facility] Heart rate 2022-11-22 17:54:00 90 /min Universi ty of [facility] Body temperature 2022-11-22 17:54:00 37.39 Leda Univ ersity of [facility] Respiratory rate 2022-11-22 17:54:00 18 /min Univ ersity of [facility] Body height 2022-11-22 17:54:00 180.3 cm Universi ty of [facility] Body weight 2022-11-22 17:54:00 79.379 kg Universi ty of [facility] BMI 2022-11-22 17:54:00 24.41 kg/m2 Universi ty of [facility] Oxygen saturation in 2022-11-22 17:54:00 98 /min [facility] blood by [facility] P[facility]xim[facility] Systolic blood 2022-11-15 15:27:00 131 mm[Hg] Univer sity of pressure [facility] Diastolic blood 2022-11-15 15:27:00 79 mm[Hg] Unive rsity of pressure [facility] Heart rate 2022-11-15 15:27:00 76 /min Universi ty of [facility] Body temperature 2022-11-15 15:27:00 36.28 Leda Univ ersity of [facility] Body height 2022-11-15 15:27:00 152.4 cm Universi ty of [facility] Body weight 2022-11-15 15:27:00 82.192 kg Universi ty of [facility] BMI 2022-11-15 15:27:00 35.39 kg/m2 Universi ty of [facility] Oxygen saturation in 2022-11-15 15:27:00 98 /min [facility]terial blood by [facility] P[facility] Systolic blood 2022-11-14 17:50:00 126 mm[Hg] Univer sity of pressure [facility] Diastolic blood 2022-11-14 17:50:00 79 mm[Hg] Unive rsity of pressure [facility] Heart rate 2022-11-14 17:50:00 67 /min Universi ty of [facility] Body temperature 2022-11-14 17:50:00 36.89 Leda Univ ersity of [facility] Respiratory rate 2022-11-14 17:50:00 20 /min Univ ersity of [facility] Oxygen saturation in 2022-11-14 17:50:00 96 /min University of Arterial blood by [facility] Pulse oximetry Branch Body weight 2022-11-14 09:00:00 81.602 kg Universi ty of [facility] BMI 2022-11-14 09:00:00 35.13 kg/m2 Universi ty of [facility] Body height 2022-11-13 08:01:00 152.4 cm Universi ty of [facility] Systolic blood 2022-11-06 17:40:00 144 mm[Hg] Univer sity of pressure [facility] Diastolic blood 2022-11-06 17:40:00 86 mm[Hg] Unive rsity of pressure [facility] Heart rate 2022-11-06 17:40:00 67 /min Universi ty of [facility] Body temperature 2022-11-06 17:40:00 36.78 Leda Univ ersity of [facility] Respiratory rate 2022-11-06 17:40:00 14 /min Univ ersity of [facility] Oxygen saturation in 2022-11-06 17:40:00 98 /min University of Arterial blood by [facility] Pulse oximetry Branch Body weight 2022-11-05 11:20:00 81.466 kg Universi ty of [facility] BMI 2022-11-05 11:20:00 35.08 kg/m2 Universi ty of [facility] Body height 2022-11-05 00:29:00 152.4 cm Universi ty of [facility] Systolic blood 2022-10-11 18:27:00 124 mm[Hg] Univer sity of pressure [facility] Diastolic blood 2022-10-11 18:27:00 77 mm[Hg] Unive rsity of pressure [facility] Heart rate 2022-10-11 18:27:00 98 /min Universi ty of [facility] Body height 2022-10-11 18:27:00 180.3 cm Universi ty of [facility] Body weight 2022-10-11 18:27:00 80.423 kg [facility]i ty of [facility] BMI 2022-10-11 18:27:00 24.73 kg/m2 [facility] ty of [facility] Oxygen saturation in 2022-10-11 18:27:00 94 /min [facility] blood by [facility] P[facility]xim[facility] Systolic blood 2022-09-28 19:25:00 115 mm[Hg] Univer sity of pressure [facility] Diastolic blood 2022-09-28 19:25:00 75 mm[Hg] Unive rsity of pressure [facility] Heart rate 2022-09-28 19:25:00 84 /min Universi ty of [facility] Body height 2022-09-28 19:25:00 180.3 cm Universi ty of [facility] Body weight 2022-09-28 19:25:00 83.144 kg Universi ty of [facility] BMI 2022-09-28 19:25:00 25.57 kg/m2 Universi ty of [facility] Oxygen saturation in 2022-09-28 19:25:00 97 /min University of Arterial blood by [facility] Pulse oximetry Branch Systolic blood 2022-08-28 20:41:00 129 mm[Hg] Univer sity of pressure [facility] Diastolic blood 2022-08-28 20:41:00 75 mm[Hg] Unive rsity of pressure [facility] Heart rate 2022-08-28 20:41:00 84 /min Universi ty of [facility] Body temperature 2022-08-28 20:41:00 37.11 Leda Univ ersity of [facility] Body height 2022-08-28 20:41:00 180.3 cm Universi ty of [facility] Body weight 2022-08-28 20:41:00 84.959 kg Universi ty of [facility] BMI 2022-08-28 20:41:00 26.12 kg/m2 Universi ty of [facility] Oxygen saturation in 2022-08-28 20:41:00 97 /min University of Arterial blood by [place] [employer] [facility]eta Pulse oximetry Branch Systolic blood 2022-02-02 16:52:00 129 mm[Hg] Univer sity of pressure [facility] Diastolic blood 2022-02-02 16:52:00 80 mm[Hg] Unive rsity of pressure [facility] Heart rate 2022-02-02 16:51:00 78 /min Universi ty of [facility] Body weight 2022-02-02 16:51:00 83.915 kg [facility] BMI 2022-02-02 16:51:00 25.80 kg/m2 [facility] Oxygen saturation in 2022-02-02 16:51:00 98 /min University of Arterial blood by [facility] Pulse oximetry Branch Systolic blood 2021-11-27 16:08:00 128 mm[Hg] Univer sity of pressure [facility] Diastolic blood 2021-11-27 16:08:00 80 mm[facility]Hg[facility] 2021-11-27 16:08:00 103 /min [facility] Body temperature 2021-11-27 16:08:00 37.17 Leda [facility] Body height 2021-11-27 16:08:00 180.3 cm [facility] Body weight 2021-11-27 16:08:00 78.019 kg [facility] BMI 2021-11-27 16:08:00 23.99 kg/m2 [facility] Oxygen saturation in 2021-11-27 16:08:00 100 /min University of Arterial blood by [facility] Pulse oximetry Branch Procedures Procedure Date / Time Performing Clinician Source Performed MAGNESIUM 2022-11-29 12:13:00 Sara Vilchis [facility] COMP. METABOLIC PANEL 2022-11-29 12:13:00 Sara Vilchis [facility] ([id number]) [facility] LIPASE 2022-11-29 09:09:00 Sara Vilchis [facility] CBC WITH DIFF 2022-11-29 09:09:00 Sara Vilchis [facility] PROTHROMBIN TIME / INR 2022-11-29 09:09:00 Sara Vilchis [facility] ACTIVATED PARTIAL 2022-11-29 09:09:00 Sara Vilchis [facility] THRMPLAS [facility] LIPASE 2022-11-28 21:20:00 Tez Ramírez [facility] COMP. METABOLIC PANEL 2022-11-28 21:20:00 Tez Ramírez Un [facility] ([id number]) Medical Branch CBC WITH DIFF 2022-11-28 21:20:00 Tez Ramírez [facility] CONSENT/REFUSAL FOR 2022-11-28 20:55:04 Doctor Unassigned, No Un [facility] DIAGNOSIS AND TREATMENT Name Medical Branch LIPASE 2022-11-22 19:26:00 Singer [facility] COMP. METABOLIC PANEL 2022-11-22 19:26:00 Singer [facility] ([id number]) Medical Branch CBC WITH DIFF 2022-11-22 19:26:00 Singer [facility] URINALYSIS 2022-11-22 19:20:00 Singer [facility] ASSIGNMENT OF BENEFITS 2022-11-22 18:54:27 Doctor Unassigned, No [facility] CONSENT/REFUSAL FOR 2022-11-22 17:42:28 Doctor Unassigned, No [facility] DIAGNOSIS AND TREATMENT [facility] BASIC METABOLIC PANEL 2022-11-14 10:21:00 Hailey Cardenas [facility] (NA, K, CL, CO2, GLUCOSE, Medica l Branch BUN, CREATININE, CA) US ABDOMEN COMPLETE 2022-11-13 09:37:37 Radu Treadwell [facility] CT ABDOMEN PELVIS WO 2022-11-13 03:29:30 Perla Guillaume [facility] CONTRAST Medical Branch LIPASE 2022-11-13 01:34:00 Markell [facility] HEPATIC FUNCTION PANEL 2022-11-13 01:34:[address] [facility] ([id number]) (ALB,T.PRO,BILI Medical Branch T,BU/BC,ALT,AST,ALK PHOS) BASIC METABOLIC PANEL 2022-11-13 01:34:00 Markell [facility] (NA, K, CL, CO2, GLUCOSE, Medica l Branch BUN, CREATININE, CA) CBC WITH DIFF 2022-11-13 01:34:00 Markell, [facility] ASSIGNMENT OF BENEFITS 2022-11-13 01:18:15 Doctor Unassigned, No [facility] NOTICE OF PRIVACY 2022-11-12 23:36:23 Doctor Unassigned, No [facility] PRACTICES [facility] CONSENT/REFUSAL FOR 2022-11-12 23:36:07 [facility] [place] LIPASE 2022-11-06 10:42:00 Lupis Soria [facility] MAGNESIUM 2022-11-06 10:42:00 Medina [facility] BASIC METABOLIC PANEL 2022-11-06 10:42:00 [facility] (NA, K, CL, CO2, GLUCOSE, Medica l Branch BUN, CREATININE, CA) CBC WITH DIFF 2022-11-06 10:42:00 Medina [facility] LIPID PANEL ([id number])(TOTAL 2022-11-05 11:25:00 Deric Santos [facility] CHOLESTEROL, [facility] TRIGLYCERIDES, HDL) CT ABDOMEN PELVIS WO 2022-11-04 18:25:16 Josh Hodge [facility] CONTRAST [facility] Branch HB ECG ROUTINE & RHYTHM 2022-11-04 17:55:58 Josh Hodge [facility] STRIP [facility] Branch URINALYSIS 2022-11-04 17:52:00 [facility] [facility] LIPASE 2022-11-04 17:50:00 Josh Hodge [facility] TROPONIN I 2022-11-04 17:50:00 Josh Hodge [facility] COMP. METABOLIC PANEL 2022-11-04 17:50:00 Josh Hodge [facility] ([id number]) Medical Branch ETHANOL 2022-11-04 17:50:00 Josh Hodge [facility] CBC WITH DIFF 2022-11-04 17:50:00 Josh Hodge [facility] CONSENT/REFUSAL FOR 2022-11-04 17:24:22 Doctor Unassigned, No [facility] DIAGNOSIS AND TREATMENT Name Medical Branch CONSENT/REFUSAL FOR 2022-09-28 19:06:21 Doctor Unassigned, No [facility] Name Medical Branch CBC WITH DIFF 2022-08-28 21:49:00 Hua Justice Cicero o [facility] SARS-COV-2 COVID-19 2022-08-28 21:43:24 Hua Justice [facility] ANTONI-SUCROSE VACCINE 12 Medical Branch YRS+, BIVALENT 0.3ML, IM, (PFIZER ARROYO TOP) PNEUMOCOCCAL 20 CONJUGATE 2022-08-28 21:43:00 Hua Justice Un [facility] (PREVNAR 20) VACCINE Medical [facility] INSURANCE CORRESPONDENCE 2022-08-21 05:01:00 Doctor Unassigned, No [facility] AUTHORIZATION FOR RELEASE 2021-11-27 05:01:00 Doctor Unassigned, No [facility] Medical [place] Encounters Start End Encounter Admission Attending Care Care Encounter Source Date/Time Date/Time Type Type Clinicians Facility Department ID 2021-01-31 Emergency [facility] [id number] Univers 04:31:31 ity of [facility] 2021-01-30 Emergency [facility] [id number] Univers 12:18:18 ity of [facility] 2021-01-30 Emergency [facility] [id number] Univers 09:17:48 ity of [facility] 2021-01-30 Emergency [facility] [id number] Univers 08:18:41 ity of [facility] 2021-01-30 Emergency [facility] [id number] Univers 04:52:11 ity of [facility] 2021-01-28 Emergency [facility] [id number] Univers 18:24:20 ity of [facility] 2021-01-28 Emergency [facility] [id number] Univers 04:33:22 ity of [facility] 2021-01-28 Outpatient MILY [facility] [id number] Univers 04:31:08 BRODIE ity of [facility] 2021-01-28 Emergency [facility] [id number] Univers 01:58:43 ity of [facility] 2021-01-27 Emergency [facility] [id number] Univers 23:31:06 ity [facility] 2021-01-27 Emergency [facility] [id number] Univers 21:26:13 ity [facility] 2023-01-29 2023-01-29 Outpatient R TOYA GUNTER [facility] [id number] Univers 10:20:00 10:20:00 LYRIC TOYA combs [facility] 2023-01-11 2023-01-11 Outpatient R TOYA GUNTER [facility] [id number] Univers 14:00:00 14:00:00 VIKJOHN MossDIVYA adamsgautam [facility] 2022-12-18 2022-12-18 [employer] [facility], [facility] 1.2.840.1 14 [id number] Univers 14:00:00 14:15:00 Visit Hua Justice 350.1.13.10 ity of [place] 4.2.7.2.686 Real as SYED?BLEA [id number] De nidhi [facility] [address] MEDICAL OFFICE [facility] 2022-12-18 2022-12-18 Outpatient R VINH [facility] [id number] Univers 13:00:00 13:10:24 HUA angiegautam [facility] 2022-12-18 2022-12-18 Office Vinh [facility] 1.2.840.114 [id number] Univers 13:00:00 13:10:24 Visit Hua MEJIA 350.1.13.10 it y of [place] 4.2.7.2.686 Real as SYED?BLEA [id number] De isra[address] MEDICAL OFFICE BUILDING 2022-12-18 2022-12-18 Patient Doctor CARY 1.2.840.114 [id number] Univers 00:00:00 00:00:00 Secure Msg Unassigned, SEAN 350.1.13.10 ity of [place] [facility] 4.2.7.2.686 Real as [id number] [address] 2022-12-17 2022-12-17 Outpatient R TOYA GUNTER [facility] [id number] Univers 16:20:00 16:20:00 TOYA GUNTER [facility] 2022-12-17 2022-12-17 Telephone Kley [facility] 1.2.924.090 [id number] Univers 00:00:00 00:00:00 Toya HEALTH 350.1.13.10 ity of [place] 4.2.7.2.686 Real as SYED?BLEA [id number] [address] MEDICAL OFFICE [facility] 2022-12-14 2022-12-14 Telephone Vinh [facility] 1.2.971.778 [id number] Univers 00:00:00 00:00:00 Hua HEALTH 350.1.13.10 it y of [place] 4.2.7.2.686 Real as SYED?BLEA [id number] [address] OFFICE [facility] 2022-12-14 2022-12-14 Patient Doctor [facility] 1.2.840.114 [id number] Univers 00:00:00 00:00:00 Secure Msg Unassigned, HEALTH 350.1.13.10 ity of [place] 4.2.7.2.686 Real as SYED?BLEA [id number] [address] OFFICE [facility] 2022-12-12 2022-12-12 Outpatient R VINH [facility] [id number] Univers 13:30:00 13:30:00 HUA itgautam of [facility] 2022-12-06 2022-12-06 [facility] 1.2.898.935 [id number] Univers 00:00:00 00:00:00 Hua HEALTH 350.1.13.10 it y of [place] 4.2.7.2.686 Real as SYED?BLEA [id number] [address] OFFICE [facility] 2022-12-04 2022-12-04 Transition MANJINDER Francisco 1.2.840.114 [id number] Univers 00:00:00 00:00:00 of Care Anderson [place] 350.1.13.10 [place] [id number] [address] 2022-12-04 2022-12-04 [facility]phone [facility] 1.2.986.573 [id number] Univers 00:00:00 00:00:00 Hua HEALTH 350.1.13.10 it y of [facility] 4.2.7.2.686 Real as SYED?BLEA [id number] [address] MEDICAL OFFICE [facility] 2022-11-28 2022-11-30 Outpatient X T[facility] [id number] Univers 16:10:00 11:07:00 DERIC combs [facility] 2022-11-28 2022-11-30 Emergency Tez Ramírez [facility] 1.2. 840.114 [id number] Univers 16:10:00 11:07:00 Deric Santos 350.1.13.10 ity [facility] [place].2.7.2.[place]NN[place] [id number] [address] 2022-11-22 2022-11-22 Emergency X [facility] ERT [id number] Univers 12:58:00 15:41:00 TITUS combs [facility] 2022-11-22 2022-11-22 Emergency [facility] 1.2.749.474 [id number] Univers 12:58:00 15:41:00 Titus CHAPMAN 350.1.13.10 i ty of [facility] 4.2.7.2.686 [id number] [address] 2022-11-16 2022-11-16 Telephone [facility] 1.2.778.830 [id number] Univers 00:00:00 00:00:00 [facility] 350.1.13.10 ity of [facility] 4.2.7.2.686 Real as SYED?BLEA [id number] [address] OFFICE [facility] 2022-11-15 2022-11-15 Outpatient R TOYA GUNTER [facility] [id number] Univers 10:20:00 11:30:24 TOYA GUNTER [facility] 2022-11-15 2022-11-15 Office [facility] 1.2.840.114 [id number] Univers 10:20:00 11:30:24 Visit [facility] 350.1.13.10 ity of [place] 4.2.7.2.686 Real as SYED?BLEA [id number] [facility] [address] MEDICAL OFFICE BUILDING 2022-11-15 2022-11-15 Transition MANJINDER Olivier 1.2.840.114 [id number] Univers 00:00:00 00:00:00 of Care Jenniffer Arndt [place] 350.1.13.10 [place] [id number] [facility] [address] 2022-11-12 2022-11-14 Outpatient U HERI [facility] [id number] Univers 18:51:00 16:49:00 RADU ity of [facility] 2022-11-12 2022-11-14 Emergency Perla Guillaume [facility] 1.2.840.1 14 [id number] Univers 18:51:00 16:49:00 Radu Treadwell [facility] 350.1.13.10 ity of [place] [id number] [facility] 114 Branch (CLC) 2022-11-12 2022-11-12 Orders Doctor CARY 1.2.840.114 [id number] Univers 00:00:00 00:00:00 Only Unassigned, SEAN 350.1.13.10 ity of [place] HOSPITAL 4.2.7.2.686 Real as [phone] [facility] 009 [address] 2022-11-09 2022-11-09 Telephone Vinh [facility] 1.2.906.728 [id number] Univers 00:00:00 00:00:00 Hua HEALTH 350.1.13.10 it y of [place] 4.2.7.2.686 Real as SYED?BLEA [id number] [address] MEDICAL OFFICE BUILDING 2022-11-07 2022-11-07 Transition MANJINDER Francisco 1.2.840.114 [id number] Univers 00:00:00 00:00:00 of Care Anderson LOPEZY 350.1.13.10 [place] [id number] [facility] [address] 2022-11-07 2022-11-07 Patient Doctor CARY 1.2.840.114 [id number] Univers 00:00:00 00:00:00 Secure Msg UnassignedSEAN 350.1.13.10 ity of [place] [facility] 4.2.7.2.686 Real as [id number] [facility] 019 [address] 2022-11-04 2022-11-06 Outpatient X [facility] [id number] Univers 12:36:00 13:55:00 DERIC ity of [facility] 2022-11-04 2022-11-06 Emergency Josh Hodge [facility] 1.2.840.1 14 [id number] Univers 12:36:00 13:55:00 Deric Santos 350.1.13.10 ity of [facility] 4.2.7.2.686 [place] [facility] [phone] [facility] [address] 2022-10-31 2022-10-31 Refsophie [facility] 1.2.840.114 [id number] Univers 00:00:00 00:00:00 Hua HEALTH 350.1.13.10 it y of [place] 4.2.7.2.686 Real as SYED?BLEA [id number] [address] MEDICAL OFFICE [facility] 2022-10-24 2022-10-24 Shanta Shaffer [facility] 1.2.840.114 [id number] Univers 00:00:00 00:00:00 Lucy HEALTH 350.1.13.10 it y of [place] 4.2.7.2.686 Real as SYED?BLEA [id number] [address] MEDICAL OFFICE [facility] 2022-10-22 2022-10-22 Nella [facility] 1.2.452.139 [id number] Univers 00:00:00 00:00:00 Toya HEALTH 350.1.13.10 ity of [facility] 4.2.7.2.686 Real as SYED?BLEA [id number] [address] OFFICE [facility] 2022-10-11 2022-10-11 Outpatient R TOYA GUNTER [facility] [id number] Univers 13:40:00 13:55:29 TOYA GUNTER gautam [facility] 2022-10-11 2022-10-11 Office [facility] 1.2.840.114 [id number] Univers 13:40:00 13:55:29 Visit [facility] 350.1.13.10 ity [facility] 4.2.7.2.686 Real as SYED?BLEA [id number] [address] OFFICE [facility] 2022-10-08 2022-10-08 Outpatient R [facility] [id number] Univers 13:00:00 13:00:00 ity [facility] 2022-10-04 2022-10-04 Refsophie [facility]ARTES[facility] 1.2.840.114 [id number] Univers 00:00:00 00:00:00 [facility] 350.1.13.10 it y of [facility] 4.2.7.2.686 Real as SYED?BLEA [id number] [address] OFFICE [facility] 2022-10-01 2022-10-01 Refill [facility] 1.2.840.114 [id number] Univers 00:00:00 00:00:00 [facility] 350.1.13.10 it y of [facility] 4.2.7.2.686 Real as SYED?BLEA [id number] [address] OFFICE [facility] 2022-09-28 2022-09-28 Office [facility] 1.2.840.114 [id number] Univers 14:20:00 14:40:00 Visit [facility] 350.1.13.10 ity of [place] 4.2.7.2.686 Real as SYED?BLEA [id number] [address] 2022-09-28 2022-09-28 Outpatient R JOHN GUNTERINE [facility] [id number] Univers 14:20:00 14:20:00 TOYA GUNTER [facility] 2022-09-28 2022-09-28 Orders Doctor TOWNSEND 1.2.840.114 [id number] Univers 00:00:00 00:00:00 Only Unassigned, SEAN 350.1.13.10 ity of [place] HOSPITAL 4.2.7.2.686 Real as [id number] [facility] [address] 2022-09-05 2022-09-05 Telephone Lyric [facility] 1.2.257.540 [id number] Univers 00:00:00 00:00:00 Toya HEALTH 350.1.13.10 ity of [place] 4.2.7.2.686 Real as SYED?BLEA [id number] [facility] [address] MEDICAL OFFICE [facility] 2022-08-29 2022-08-29 Telephone Vinh [facility] 1.2.304.060 [id number] Univers 00:00:00 00:00:00 Hua HEALTH 350.1.13.10 it y of [place] 4.2.7.2.686 Real as SYED?BLEA [id number] [facility] [address] MEDICAL OFFICE [facility] 2022-08-29 2022-08-29 Pre Visit Carly CARY 1.2.302.496 [id number] Univers 00:00:00 00:00:00 Outreach Jh ESTRADA 350.1.13.10 ity of [facility] 4.2.7.2.686 Real as [id number] [facility] [address] 2022-08-28 2022-08-28 [employer] [facility], [facility] 1.2.840.1 14 [id number] Univers 16:45:00 17:00:00 Visit Unknown, [facility] HEALTH 350.1.13.10 ity of [place] 4.2.7.2.686 Real as SYED?BLEA [id number] [facility] [address] MEDICAL OFFICE [facility] 2022-08-28 2022-08-28 Outpatient R VINH [facility] [id number] Univers 15:30:00 16:41:27 HUA ity of [facility] 2022-08-28 2022-08-28 Office Vinh [facility] 1.2.840.114 [id number] Univers 15:30:00 16:41:27 Visit Hua HEALTH 350.1.13.10 it y of [place] 4.2.7.2.686 Real as SYED?BLEA [id number] [address] MEDICAL OFFICE [facility] 2022-08-21 2022-08-21 Orders Doctor TOWNSEND 1.2.840.114 [id number] Univers 00:00:00 00:00:00 Only Unassigned, SEAN 350.1.13.10 ity of [place] [facility] 4.2.7.2.686 Real as [id number] [address] 2022-07-30 2022-07-30 Refill [facility] 1.2.840.114 [id number] Univers 00:00:00 00:00:00 Hua HEALTH 350.1.13.10 it y of [facility] 4.2.7.2.686 Real as SYED?BLEA [id number] [address] MEDICAL OFFICE [facility] 2022-06-13 2022-06-13 Telephone Edmund [facility] 1.2.840.114 [id number] Univers 00:00:00 00:00:00 [facility] 350.1.13.10 it y of [place] 4.2.7.2.686 Real as SYED?BLEA [id number] [address] MEDICAL OFFICE [facility] 2022-05-29 2022-05-29 Outpatient R VINH [facility] [id number] Univers 11:00:00 11:00:00 HUA combs [facility] 2022-05-29 2022-05-29 Outpatient R VINH [facility] [id number] Univers 11:00:00 11:00:00 HUA combs [facility] 2022-05-15 2022-05-15 Outpatient R AKASH [facility] [id number] Univers 14:00:00 14:00:00 ATTENDING garret [facility] 2022-02-06 2022-02-06 Outpatient R EVON [facility] [id number] Univers 15:14:07 23:59:00 CHETNA combs [facility] 2022-02-05 2022-02-05 Telephone [facility] 1.2.587.497 [id number] Univers 00:00:00 00:00:00 Hua HEALTH 350.1.13.10 it y of [place] 4.2.7.2.686 Real as SYED?BLEA [id number] De nidhi NANCE [address] [place] [address] OFFICE [facility] 2022-02-03 2022-02-03 Refsophie Shaffer [facility] 1.2.840.114 [id number] Univers 00:00:00 00:00:00 Lucy HEALTH 350.1.13.10 it y of [place] 4.2.7.2.686 Real as SYED?BLEA [id number] De nidhi HYATT[address] MEDICAL OFFICE [facility] 2022-02-03 2022-02-03 Refsophie Krishnas[facility]ARTESIA [facility] 1.2.840.114 [id number] Univers 00:00:00 00:00:00 Hua HEALTH 350.1.13.10 it y of [place] 4.2.7.2.686 Real as SYED?BLEA [id number] [address] OFFICE [facility] 2022-02-02 2022-02-02 [employer] Lab, Critical access hospital 1.2.840.1 14 [id number] [facility] 12:00:00 12:15:00 Visit Lucy Shaffer [facility] 350.1.13 .10 ity of [place] 4.2.7.2.686 Real as SYED?BLEA [id number] [facility] [address] [facility] OFFICE [facility] 2022-02-02 2022-02-02 Outpatient R EVON [facility] [id number] Univers 11:30:00 12:07:03 CHETNA ity of [facility] 2022-02-02 2022-02-02 Office [facility] 1.2.840.114 [id number] Univers 11:30:00 12:07:03 Visit [facility] 350.1.13.10 it y of [place] 4.2.7.2.686 Real as SYED?BLEA [id number] [address] OFFICE [facility] 2022-01-22 2022-01-22 Outpatient R BLAIR GALINDO [facility] 10 [id number] Univers 09:00:00 09:00:00 BLAIR GALINDO i ty [facility] 2022-01-08 2022-01-08 Outpatient R MELLY GALINDOJOSE ANGEL [facility] [id number] Univers 10:30:00 10:30:00 JOSIE BLAIR serina ty [facility] 2022-01-08 2022-01-08 Refill [facility] 1.2.840.114 [id number] Univers 00:00:00 00:00:00 Lucy HEALTH 350.1.13.10 it y of [place] 4.2.7.2.686 Real as SYED?BLEA [id number] [address] MEDICAL OFFICE BUILDING 2021-11-27 2021-11-27 Outpatient R VINH [facility] [id number] Univers 11:00:00 11:50:48 HUA combs [facility] 2021-11-27 2021-11-27 [facility] 1.2.840.114 [id number] Univers 11:00:00 11:50:48 Visit [facility] 350.1.13.10 it y of [place] 4.2.7.2.686 Real as SYED?BLEA [id number] [address] MEDICAL OFFICE [facility] 2021-11-27 2021-11-27 Outpatient R VINH [facility] [id number] Univers 11:00:00 11:50:48 HUA combs [facility] 2021-11-27 2021-11-27 Orders Doctor TOWNSEND 1.2.840.114 [id number] Univers 00:00:00 00:00:00 Only Unassigned, SEAN 350.1.13.10 ity of [place] [facility] 4.2.7.2.686 Real as [id number] [address] 2021-11-24 2021-11-24 Telephone [facility] 1.2.840.114 [id number] Univers 00:00:00 00:00:00 Lucy HEALTH 350.1.13.10 it y of [place] 4.2.7.2.686 Real as SYED?BLEA [id number] [address] MEDICAL OFFICE BUILDING 2021-11-08 2021-11-08 Outpatient [facility] [id number] Univers 10:30:00 10:30:00 HORTENSIA ity of [facility] 2021-10-27 2021-10-27 Telephone [facility] 1.2.840.114 [id number] Univers 00:00:00 00:00:00 Lucy HEALTH 350.1.13.10 it y of [place] 4.2.7.2.686 Real as SYED?BLEA [id number] [address] 2021-09-13 2021-09-13 Telephone [facility] 1.2.840.114 [id number] Univers 00:00:00 00:00:00 Lucy HEALTH 350.1.13.10 it y of [place] 4.2.7.2.686 Real as SYED?BLEA [id number] [address] 2021-08-14 2021-08-14 [facility] 1.2.840.114 [id number] Univers 00:00:00 00:00:00 Lucy HEALTH 350.1.13.10 it y of [place] 4.2.7.2.686 Real as SYED?BLEA [id number] [address] 2021-08-14 2021-08-14 [facility] 1.2.840.114 [id number] Univers 00:00:00 00:00:00 Wondiful A HEALTH 350.1.13.10 ity of [place] 4.2.7.2.686 Real as SYED?BLEA [id number] [address] 2021-08-14 2021-08-14 [facility] 1.2.840.114 [id number] Univers 00:00:00 00:00:00 Wondiful A HEALTH 350.1.13.10 ity of [place] 4.2.7.2.686 Real as SYED?BLEA [id number] [address] 2021-08-11 2021-08-11 Telephone [facility] 1.2.840.114 [id number] Univers 00:00:00 00:00:00 Lucy [facility] 350.1.13.10 it y of [place] 4.2.7.2.686 Real as SYED?BLEA [phone] De nidhi NANCE [address] [facility] OFFICE [facility] 2021-08-10 2021-08-10 Telephone [facility] 1.2.840.114 [id number] Univers 00:00:00 00:00:00 Lucy [facility] 350.1.13.10 it y of [place] 4.2.7.2.686 Real as SYED?BLEA [id number] De nidhi NANCE [address] [place] [address] OFFICE [facility] 2021-08-09 2021-08-09 [employer] Lab, Critical access hospital 1.2.840.1 14 [id number] Univers 13:30:00 13:37:44 Visit Yvonnebernardino Lucy quan [facility] 350.1.13 .10 ity of [place] 4.2.7.2.686 Real as SYED?BLEA [id number] De nidhi NANCE [address] [facility] OFFICE [facility] 2021-08-09 2021-08-09 Outpatient Sara SHAFFER [facility] [id number] Univers 13:00:00 13:29:43 LUCY [facility] 2021-08-09 2021-08-09 Office [facility] 1.2.840.114 [id number] Univers 13:00:00 13:15:00 Visit [facility] 350.1.13.10 it y of [place] 4.2.7.2.686 Real as SYED?BLEA [id number] De nidhi NANCE [address] [place] [address] OFFICE [facility] 2021-08-09 2021-08-09 Outpatient Sara SHAFFER [facility] [id number] Univers 13:00:00 13:00:00 LUCY combs [facility] 2021-07-11 2021-07-11 Outpatient Sara SHAFFER [facility] [id number] Univers 13:30:00 14:00:44 LUCY combs [facility] 2021-07-11 2021-07-11 Outpatient R [facility] [id number] Univers 13:30:00 14:00:44 LUCY ity [facility] 2021-07-11 2021-07-11 Office [facility] 1.2.840.114 [id number] Univers 13:30:00 14:00:00 Visit Lucy [facility] 350.1.13.10 it y of Leo CHAPMAN 4.2.7.2.686 Real as SYED?BLEA [phone] [address] OFFICE [facility] 2021-07-11 2021-07-11 [facility] [id number] Univers 13:30:00 13:30:00 LUCY y [facility] 2021-07-11 2021-07-11 Orders Doctor [place] 1.2.840.114 [id number] Univers 00:00:00 00:00:00 Only Unassigned, SEAN 350.1.13.10 ity of [place] [facility] 4.2.7.2.686 Real as [phone] [address] 2021-06-29 2021-06-29 Orders Doctor CARY 1.2.840.114 [id number] Univers 00:00:00 00:00:00 Only Unassigned, SEAN 350.1.13.10 [facility]y [facility] [place] [facility] 4.2.7.2.686 Real as [phone] [address] 2021-06-16 2021-06-16 [facility] 1.2.840.114 [id number] Univers 00:00:00 00:00:00 Wondiful [facility] 350.1.13.10 [place]y of [place] 4.2.7.2.686 Real as SYED?BLEA [phone] De nidhi NANCE [address] [place] [address] OFFICE [facility] 2021-06-12 2021-06-13 Emergency X Taras [facility] ERT [id number] Univers 20:06:00 02:41:00 ity of [facility] 2021-06-12 2021-06-13 Emergency Taars Us [facility] 1.2.840.114 [id number] Univers 20:06:00 02:41:00 Mel ADELA 350.1.13.10 i ty of [place] 4[place]2.7.2.686 [place] [facility] [phone] [facility] [address] 2021-06-12 2021-06-13 Emergency X Taras [place] [facility] ERT [id number] Univers 20:06:00 02:41:00 ity of [facility] 2021-04-07 2021-04-07 Outpatient R BLAIR GALINDO [facility] [id number] Univers 13:00:00 13:00:00 BLAIR GALINDO i ty of [facility] 2021-03-23 2021-03-23 [facility]patient [facility] [id number] Univers 15:30:00 15:30:00 [facility] 2021-03-16 2021-03-16 Outpatient R [facility] [id number] Univers 15:30:00 15:30:00 [facility] 2021-03-03 2021-03-03 Outpatient R KARTHIKEYAN [facility] [id number] Univers 08:30:00 08:30:00 YOSEF [facility] 2021-02-09 2021-02-09 Transition MANJINDER [place] 1.2.840.114 [id number] Univers 00:00:00 00:00:00 of Care Sayra LOPEZY 350.1.13.10 i ty of [place] 4[place]2.7.2.686 [place] [phone] [facility] [address] 2021-02-05 2021-02-08 Outpatient X KIMO [facility] DEWEY [id number] Univers 10:43:00 17:37:00 [facility] 2021-02-05 2021-02-08 Emergency Lennox Crystal [facility] 1.2.840. 114 [id number] Univers 10:43:00 17:37:00 Anastasia Krishnan 350.1.13.10 ity of [place] 4.2.7.2.686 [place] [facility] [phone] [facility] 081 Branch 2021-02-02 2021-02-02 Transition MANJINDER Francisco 1.2.840.114 [id number] Univers 00:00:00 00:00:00 of Care Anderson Valiente JUSTINO 350.1.13.10 ity of [place]2.7.2.686 [place] [id number] [address] 2021-01-27 2021-02-01 Inpatient X AMIRAATIF [facility] [id number] Univers 22:36:00 16:30:00 MOSHE combs [facility] 2021-01-27 2021-02-01 Hospital Urszula Baeza [facility] 1.2.840. 114 [id number] Univers 22:36:00 16:30:00 Encounter Moshe Haney ADELA 350.1.13.10 ity of [place] 4.2.7.2.686 [phone] [address] 2021-01-31 2021-01-31 Patient Fabiano [facility] 1.2.840.114 [id number] Univers 00:00:00 00:00:00 Outreach Wendy Duncan [facility] 350.1.13.10 i ty of [place] 4.2.7.2.686 Real as SYED?BLEA [phone] [address] MEDICAL OFFICE BUILDING 2021-01-21 2021-01-21 [facility] 1.2.790.232 [id number] Univers 03:45:00 05:15:00 Titus Chapman 350.1.13.10 i ty of [place] 4.2.7.2.686 [facility] [id number] [address] 2021-01-21 2021-01-21 Emergency X [facility] ERT [id number] Univers 03:45:00 05:15:00 TITUS combs [facility] 2021-01-10 2021-01-10 Transition Manjinder [place] 1.2.840.114 [id number] Univers 00:00:00 00:00:00 of Care Sayra Dakota Badillo 350.1.13.10 i ty of [place] 4.2.7.2.686 [place] [phone] [address] 2021-01-04 2021-01-08 Hospital Yefri Claudio [facility] 1.2.840.1 14 [id number] Univers 16:12:00 13:20:00 Encounter Radu [facility] 350.1.13.10 ity of [place] 4.2.7.2.686 [facility] [phone] [address] ([facility]) 2021-01-04 2021-01-08 Inpatient X HERI [facility] [id number] Univers 16:12:00 13:20:00 RADU ity [facility] 2021-01-08 2021-01-08 Telephone Shelby Diaz [facility] 1.2.840.114 [id number] Univers 00:00:00 00:00:00 Health 350.1.13.10 it y of [place] 4.2.7.2.686 [facility] [phone] [address] ([facility]) 2021-01-05 2021-01-05 Surgery Karthikeyan [facility] 1.2.840.114 [id number] Univers 13:15:00 14:36:00 Yosef SPECIALTY 350.1.13.10 ity of CARE 4.2.7.2.[address] [place] [address] AT [phone] De israpam KARINAGautam [address] [place] [address] 2021-01-04 2021-01-04 Emergency Singer [facility] 1.2.180.067 [id number] Univers 12:49:00 15:28:00 Titus Chapman 350.1.13.10 i ty of [place] 4.2.7.2.686 [facility] [phone] [facility] 084 Branch 2020-12-23 2020-12-23 Transition Manjinder Pearce 1.2.840.114 [id number] Univers 00:00:00 00:00:00 of Care Debra Badillo 350.1.13.10 i ty of [place] 4.2.7.2.686 [facility] [id number] [facility] 403 Branch 2020-12-15 2020-12-22 Hospital Titus Marin [facility] 1.2.840.1 14 [id number] Univers 09:02:00 14:05:00 Encounter Deric Santos Adela 350.1.13.10 ity of [place] 4.2.7.2.686 [place] [id number] [place] [address] Branch 2020-12-15 2020-12-22 Inpatient X TOM [facility] [place] [id number] Univers 09:02:00 14:05:00 DERIC ity [facility] 2020-12-19 2020-12-19 Outpatient R [facility] [id number] Univers 16:00:00 16:00:00 ity [facility] 2020-12-15 2020-12-15 Outpatient [facility] [id number] Univers 14:30:00 14:30:00 WONDIFUL ity o f [facility] 2020-12-12 2020-12-12 Tele[facility] 1.2.840.114 [id number] Univers 00:00:00 00:00:00 Wondiful A Health 350.1.13.10 ity of [place] 4.2.7.2.686 [place] as Syed?Blea [phone] De nidhi [address] Medical Office Building 2020-12-11 2020-12-11 Emergency [facility] [id number] Univers 09:03:00 12:08:00 [facility] 2020-12-11 2020-12-11 Emergency [facility] 1.2.840.114 [id number] Univers 09:03:00 12:08:00 Catalina Chapman 350.1.13.10 ity of [place] 4.2.7.2.686 [place] [phone] [facility] 084 Branch 2020-12-01 2020-12-01 Transition Manjinder Pearce 1.2.840.114 [id number] Univers 00:00:00 00:00:00 of Care Debra Badillo 350.1.13.10 i ty of [place] 4.2.7.2.686 [place] [phone] [facility] 403 Branch 2020-11-23 2020-11-30 [facility] Malcolm Altman [facility] 1.2.840. 114 [id number] Univers 19:30:00 16:06:00 Encounter Moshe Haney [place] 350.1.13.10 ity of [place] 4.2.7.2.686 [facility] [phone] [address] 2020-11-23 2020-11-30 Inpatient X ANUPAMA [facility] [id number] Univers 19:30:00 16:06:00 MALCOLM ity of [facility] 2020-11-23 2020-11-23 Orders Doctor CARY 1.2.840.114 [id number] Univers 00:00:00 00:00:00 Only Unassigned, SEAN 350.1.13.10 ity of [place] [facility] 4.2.7.2.686 Real as [id number] [address] 2020-11-08 2020-11-08 [facility]ill [facility] 1.2.840.114 [id number] Univers 00:00:00 00:00:00 Wondiful A Health 350.1.13.10 ity of [place] 4.2.7.2.686 Real as Professio [phone] [address] Office [facility] 2020-11-04 2020-11-04 Office [facility] 1.2.840.114 [id number] Univers 10:43:14 11:27:21 Visit Wondiful A Health 350.1.13.10 ity of [place] 4.2.7.2.686 Real as Professio [phone] [address] Office [facility] One 2020-11-04 2020-11-04 Outpatient R YULIANA [facility] [id number] Univers 10:45:00 10:45:00 WONDIFUL ity o f [facility] 2020-10-30 2020-10-31 Emergency [facility] 1.2.034.336 [id number] Univers 22:35:00 02:17:00 Urszula Mendoza [place] 350.1.13.10 ity of [place] 4.2.7.2.686 [facility] [phone] [address] 2020-10-31 2020-10-31 Telephone Yuliana, [facility] 1.2.840.114 [id number] Univers 00:00:00 00:00:00 Wondiful A Health 350.1.13.10 ity of [place] 4.2.7.2.686 Real as Professio [phone] De dicpam nal 044 [facility] One 2020-10-28 2020-10-28 Telephone Yuliana, [facility] 1.2.840.114 [id number] Univers 00:00:00 00:00:00 Wondiful A Health 350.1.13.10 ity of [place] 4.2.7.2.686 Real as Professio [phone] De dical nal [address] [place] [address] One 2020-10-18 2020-10-18 Emergency Marin, [facility] 1.2.827.211 [id number] Univers 02:29:00 04:26:00 Titus Chapman 350.1.13.10 i ty of [place] 4.2.7.2.686 [place] [phone] [address] 2020-10-18 2020-10-18 Telephone [facility] 1.2.840.114 [id number] Univers 00:00:00 00:00:00 Wondiful A Health 350.1.13.10 ity of [place] 4.2.7.2.686 Real as Professio [phone] [address] One 2020-10-13 2020-10-13 Emergency Yarico, [facility] 1.2.812.746 [id number] Univers 02:21:00 05:01:00 Bradarlene [place] 350.1.13.10 ity of [place] 4.2.7.2.686 [place] [phone] [address] 2020-10-10 2020-10-10 Telephone Yuliana, [facility] 1.2.840.114 [id number] Univers 00:00:00 00:00:00 Wondiful A Health 350.1.13.10 ity of [place] 4.2.7.2.686 Real as Professio [phone] [address] Office [facility] 2020-10-07 2020-10-07 Orders Doctor CARY 1.2.840.114 [id number] Univers 00:00:00 00:00:00 Only Unassigned, SEAN 350.1.13.10 ity of [place] HOSPITAL 4.2.7.2.686 Real as [id number] [address] 2020-10-06 2020-10-06 Telephone [facility] 1.2.840.114 [id number] Univers 00:00:00 00:00:00 Wondiful A Health 350.1.13.10 ity of [place] 4.2.7.2.686 Real as Professio [phone] [address] Office [facility] 2020-10-06 2020-10-06 Telephone [facility] 1.2.840.114 [id number] Univers 00:00:00 00:00:00 Wondiful A Health 350.1.13.10 ity of [place] 4.2.7.2.686 Real as Professio [phone] [address] Office [facility] 2020-10-03 2020-10-03 Office [facility] 1.2.840.114 [id number] Univers 16:28:13 17:20:02 Visit W[facility]iful [facility] 350.1.13.10 ity of [place] 4.2.7.2.686 Real as Professio [phone] [address] Office [facility] 2020-10-03 2020-10-03 Outpatient R YULIANA [facility] [id number] Univers 16:30:00 16:30:00 WONDIFUL ity o f [facility] 2020-09-30 2020-09-30 Telephone [facility] 1.2.840.114 [id number] Univers 00:00:00 00:00:00 Wondiful A Health 350.1.13.10 ity of [place] 4.2.7.2.686 Real as Professio [phone] [address] Office [facility] One 2020-09-28 2020-09-28 Emergency [facility] 1.2.416.416 [id number] 08:21:00 11:41:00 Lennox Chapman 350.1.13.10 [place] 4.2.7.2.686 [place] [phone] [facility] 2020-09-28 2020-09-28 Emergency [facility] 1.2.284.580 [id number] Univers 08:21:00 11:41:00 Lennox Chapman 350.1.13.10 i ty of [place] 4.2.7.2.686 [place] [phone] [address] 2020-09-27 2020-09-27 [employer] Cathleen, Tonia Lab Main [facility] 1.2.8 40.114 [id number] Univers 17:06:57 17:21:57 Visit Mike Story Adela 350.1.13.10 ity of [place] 4.2.7.2.686 [place] Profess[place] [phone] De dical [facility] 2020-09-27 2020-09-27 Office [facility] 1.2.840.114 [id number] 16:25:25 16:55:20 Visit [facility] 350.1.13.10 [place] 4.2.7.2.686 Professio [phone] nal [address] [place] [address] 2020-09-27 2020-09-27 Office [facility] 1.2.840.114 [id number] Univers 16:25:25 16:55:20 Visit [facility] 350.1.13.10 i ty of [place] 4.2.7.2.686 Real as Professio [phone] De dical [facility] [address] [place] Office Building One 2020-09-27 2020-09-27 Outpatient [facility] [id number] Univers 16:30:00 16:30:00 MIKE combs o f [facility] 2020-09-26 2020-09-26 Transition Manjinder Pearce 1.2.840.114 [id number] Univers 00:00:00 00:00:00 of Care Debra M Badillo 350.1.13.10 i ty of [place] 4.2.7.2.686 [place] [phone] [facility] 403 [address] 2020-09-21 2020-09-24 [facility] Taars Us [facility] 1.2.840.1 14 [id number] Univers 16:20:00 15:47:00 Encounter Deric Santos 350.1.13.10 ity of [place] 4.2.7.2.686 [place] [phone] [facility] 081 Branch 2020-09-21 2020-09-24 Outpatient X TOM [facility] DEWE[place] [id number] Univers 16:20:00 15:47:00 DERIC combs [facility] 2020-09-22 2020-09-22 Outpatient Sara BARNARD [facility] [id number] Univers 14:00:00 14:00:00 CHETNA combs [facility] 2020-09-16 2020-09-16 Telephone Yuliana [facility] 1.2.840.114 [id number] Univers 00:00:00 00:00:00 Wondiful A Health 350.1.13.10 ity of [place] 4.2.7.2.686 Real as Professio [phone] [address] Office Building One 2020-09-13 2020-09-13 Orders Doctor CARY 1.2.840.114 [id number] Univers 00:00:00 00:00:00 Only Unassigned, SEAN 350.1.13.10 ity of [place] HOSPITAL 4.2.7.2.686 Real as [phone] [facility] 009 Branch 2020-09-06 2020-09-06 [facility] 1.2.840.114 [id number] Univers 00:00:00 00:00:00 Wondiful [facility] 350.1.13.10 ity of [place] 4.2.7.2.686 Real as Professio [phone] [address] Office Building One 2020-08-26 2020-08-28 [facility] Nyla Dixon [facility] 1 .2.840.114 [id number] Univers 09:07:00 11:38:00 Encounter Deric Santos Adela 350.1.13.10 ity of [place] 4.2.7.2.686 [place] [phone] [place] [address] [place] 2020-08-26 2020-08-28 Inpatient X TOM [facility] [id number] Univers 09:07:00 11:38:00 DERIC gatuam [facility] 2020-08-26 2020-08-28 Inpatient X TOM [facility] [place] [id number] Univers 09:07:00 11:38:00 DERIC gautam [facility] 2020-08-24 2020-08-24 Transition PearecGilbertotono 1.2.840.114 [id number] Univers 00:00:00 00:00:00 of Care Debra Badillo 350.1.13.10 i ty of [place] 4.2.7.2.686 [place] [phone] [facility] 403 [address] 2020-08-22 2020-08-23 [facility] Titus Marin [facility] 1.2.840.1 14 [id number] Univers 09:28:00 16:15:00 Encounter Anastasia Krishnan 350.1.13.10 ity of [place] 4.2.7.2.686 [place] [phone] [facility] [address] [place] 2020-08-22 2020-08-23 Outpatient X KIMO [facility] [place] [id number] Univers 09:28:00 16:15:00 ANASTASIA combs [facility] 2020-07-12 2020-07-12 Outpatient Sara BRIDGES [facility] [id number] Univers 13:00:00 13:00:00 WONDIFUL ity o f [facility] 2020-06-15 2020-06-15 Refsophie Bridges [facility] 1.2.840.114 [id number] Univers 00:00:00 00:00:00 Wondiful A Health 350.1.13.10 ity of [place] 4.2.7.2.686 Real as Professio [phone] [address] Office Building One 2020-05-31 2020-05-31 Outpatient Sara SHAFFER [facility] [id number] Univers 15:45:00 15:45:00 LUCY [facility] 2020-04-20 2020-04-20 Emergency [facility] 1.2.159.805 [id number] Univers 16:13:00 21:39:00 Kary Sara Adela 350.1.13.10 i ty of [place] 4.2.7.2.686 [place] [phone] [facility] [address] [place] 2020-04-20 2020-04-20 Telephone [facility] 1.2.840.114 [id number] Univers 00:00:00 00:00:00 Wondiful A Health 350.1.13.10 ity of [place] 4.2.7.2.686 Real as Professio [phone] [address] Office Building One 2020-04-14 2020-04-14 Outpatient [facility] [id number] Univers 10:00:00 10:00:00 [facility] 2020-04-04 2020-04-04 Outpatient [facility] [id number] Univers 09:30:00 09:30:00 CINDY [facility] 2020-03-31 2020-03-31 Outpatient R [facility] [id number] Univers 09:30:00 09:30:00 [facility] 2020-03-28 2020-03-28 Orders Doctor TOWNSEND 1..840.114 [id number] Univers 00:00:00 00:00:00 Only Unassigned, SEAN 350.1.13.10 ity of [place] [facility] 4.2.7.2.686 Real as [phone] [facility] 009 Branch 2020-03-23 2020-03-23 Outpatient R [facility] [id number] Univers 14:45:00 14:45:00 KARISHMA [facility] 2020-03-21 2020-03-21 Telephone [facility] 1.2.840.114 [id number] Univers 00:00:00 00:00:00 Wondiful A Health 350.1.13.10 ity of [place] 4.2.7.2.686 Real as Professio [phone] De dical nal 044 [facility] 2020-03-17 2020-03-17 Outpatient R DARINEL [facility] [id number] Univers 09:15:00 09:15:00 KARISHMA ity [facility] 2020-03-15 2020-03-15 Telephone [facility] 1.2.840.114 [id number] Univers 00:00:00 00:00:00 Wondiful A Health 350.1.13.10 ity of [place] 4.2.7.2.686 Real as Professio [phone] De dical nal [address] [place] Office [facility] 2020-03-09 2020-03-09 [facility] 1.2.840.114 [id number] Univers 00:00:00 00:00:00 Wondiful A Health 350.1.13.10 ity of [place] 4.2.7.2.686 Real as Professio [phone] De dical nal [address] [place] [address] 2020-03-07 2020-03-07 Office [facility] 1.2.840.114 [id number] Univers 10:31:23 11:33:24 Visit [facility] 350.1.13.10 ity of [place] 4.2.7.2.686 Real as Professio [phone] De dicsd nal [address] [place] [address] 2020-03-07 2020-03-07 Office Rodriguez [facility] 1.2.321.580 [id number] Univers 09:21:46 10:08:12 Visit Cindy Chapman 350.1.13.10 i ty of [place] 4.2.7.2.686 [place] Profess[place] [phone] [facility] 2020-03-07 2020-03-07 Outpatient R TEQUILA [facility] [id number] Univers 09:15:00 09:15:00 CINDY combs of [facility] 2020-02-23 2020-02-23 Outpatient R ETHEL [facility] [id number] Univers 09:00:00 09:00:00 ALEXIS combs [facility] 2020-02-18 2020-02-18 Transition Manjinder Morrison 1.2.840.114 [id number] Univers 00:00:00 00:00:00 of Care Keya Badillo 350.1.13.10 it y of [place].2.7.2.[place] [phone] [address] 2020-02-17 2020-02-17 Outpatient R [facility] [id number] Univers 00:00:00 00:00:00 ALEXIS combs [facility] 2020-02-17 2020-02-17 Outpatient R [facility] [id number] Univers 00:00:00 00:00:00 ALEXIS combs [facility] 2020-02-17 2020-02-17 Transition Manjinder Morrison 1.2.840.114 [id number] Univers 00:00:00 00:00:00 of Care [place] Badillo 350.1.13.10 it y of [place] 4.2.7.2.[place] [phone] [address] 2020-02-09 2020-02-16 [facility] Kary Rush [facility] 1.2.840.1 14 [id number] Univers 16:05:00 17:18:00 Encounter Anastasia Krishnan 350.1.13.10 ity of [place] 4.2.7.2.686 [place] [phone] [address] 2020-02-09 2020-02-09 [employer] Lab, [facility] I [facility] 1.. 840.114 [id number] Univers 15:44:03 16:04:03 Visit Chetna Barnard 350.1.13.10 ity of [place] 4.2.7.2.686 [facility] [phone] [address] Office [facility] 2020-02-09 2020-02-09 Office Yuliana [facility] 1.2.840.114 [id number] Univers 15:16:59 15:50:02 Visit Pam [facility] 350.1.13.10 ity of [place] 4.2.7.2.686 Real as Professio [phone] De dical nal 044 [address] Office Building One 2020-02-09 2020-02-09 Outpatient Sara BRIDGES [facility] [id number] Univers 15:30:00 15:30:00 WONDIFUL ity o f [facility] 2020-02-04 2020-02-04 Transition Manjinder Morrison 1.2.840.114 [id number] Univers 00:00:00 00:00:00 of Care [place] Badillo 350.1.13.10 it y of [place] 4.2.7.2.686 [place] [phone] [facility] 403 [address] 2020-02-03 2020-02-03 Transition Manjinder Morrison 1.2.840.114 [id number] Univers 00:00:00 00:00:00 of Care [place] Badillo 350.1.13.10 it y of [place] 4.2.7.2.686 [place] [phone] [facility] 403 [place] 2020-01-28 2020-02-02 [facility] Dangelo Carty 1.2.840.11 4 [id number] Univers 22:39:00 17:40:00 Encounter Eli Toney 350.1.13.10 ity [facility] 4.2.7.2.6 [address] [place]aga Givenspam Ava [phone] [facility] 095 [address] 2020-02-02 2020-02-02 Jorge BlackmangladysCARY 1.2.840.114 [id number] Univers 00:00:00 00:00:00 Management Alexis ESTRADA 350.1.13.10 ity of [facility] 4.2.7.2.686 Real as [phone] [facility] 009 [address] 2020-02-01 2020-02-01 Anesthesia Kamille Varma [facility] 1.2.840 .114 [id number] Univers 11:11:00 11:46:00 Preston Murray 350.1.13.10 ity of [facility] 4.2.7.2.686 Real as BLDG [id number] [facility] 020 [address] 2020-01-28 2020-01-28 Outpatient Sara BRIDGES [facility] [id number] Univers 09:00:00 09:00:00 WONDIFUL ity o f [facility] 2020-01-28 2020-01-28 Telephone Yuliana [facility] 1.2.840.114 [id number] Univers 00:00:00 00:00:00 Wondiful A Health 350.1.13.10 ity of [place] 4.2.7.2.686 Real as Professio [phone] De dical [facility] [address] [place] Office Building One 2020-01-26 2020-01-26 Office Ethel [facility] 1.2.328.260 [id number] Univers 08:27:31 09:20:57 Visit Rawan Thor Y HEALTH 350.1.13.10 ity of CLINICS 4.2.7.2.686 [place] [phone] [place] [id number] [place] 2020-01-26 2020-01-26 Outpatient R [facility] [id number] [facility] 09:00:00 09:00:00 RAWAN ity of [facility] 2020-01-21 2020-01-21 Transition Manjinder Francisco 1.2.840.114 [id number] Univers 00:00:00 00:00:00 of Care Anderson A Badillo 350.1.13.10 ity of [place] 4.2.7.2.686 [place] [phone] [facility] 403 [address] 2020-01-15 2020-01-20 Hospital Jaquelin Eligio Lauren [facility] 1.2.840.114 [id number] Univers 23:47:00 17:26:00 Encounter Eli Toney 350.1.13.10 ity of [place] 4.2.7.2.[place] [phone] [facility] 081 [address] 2020-01-15 2020-01-15 Orders Doctor CARY 1.2.840.114 [id number] Univers 00:00:00 00:00:00 Only Unassigned, SEAN 350.1.13.10 ity of [place] HOSPITAL 4.2.7.2.686 Real as [phone] [facility] 009 [address] 2020-01-12 2020-01-12 Transition Manjinder Francisco 1.2.840.114 [id number] Univers 00:00:00 00:00:00 of Care Anderson Lopezy 350.1.13.10 ity of [place].2.7.2.[place] [phone] [facility] 403 [address] 2020-01-05 2020-01-11 Hospital Lizet Sherwood [facility] 1.2.840.11 [id number] Univers 15:45:00 14:20:00 Encounter Maurice Chaudhary [id number] [id number] [phone] [facility] [address] 2020-01-05 2020-01-05 Urgent Provider, [facility] 1.2.840.114 [id number] Univers 15:08:18 15:28:18 Care Chetna Barnard [id number] ity of [place] [id number] Real as Professio [phone] [address] Office [facility] 2020-01-05 2020-01-05 Outpatient R EVON [facility] [id number] Univers 15:20:00 15:20:00 CHETNA ity of [facility] 2019-12-17 2019-12-17 Telephone Edmund [facility] 1.2.840.114 [id number] Univers 00:00:00 00:00:00 Lucy [facility] [id number] it y of [place] [id number] Real as Professio [phone] [address] Office [facility] 2019-12-16 2019-12-16 [employer] [facility], Adc Fam Pob I [facility] 1.2. 840.114 [id number] Univers 09:31:42 09:41:42 Visit Lucy Shaffer [facility] [id number] .10 ity of [place] [id number] Real as Professio [phone] [address] Office [facility] 2019-12-16 2019-12-16 Office Edmund [facility] 1.2.840.114 [id number] Univers 09:09:54 09:24:54 Visit [facility] [id number] it y of [place] [id number] Real as Professio [phone] [address] Office [facility] 2019-12-16 2019-12-16 Outpatient R YVONNEBERNARDINO [facility] [id number] Univers 09:15:00 09:15:00 LUCY [facility] 2019-07-13 2019-07-13 Telephone [facility] 1.2.840.114 [id number] Univers 00:00:00 00:00:00 Wondiful [facility] [id number] ity of [place] [id number] Real as Professio [phone] [address] Office [facility] 2019-06-29 2019-06-29 Telephone [facility] 1.2.840.114 [id number] Univers 00:00:00 00:00:00 [facility] 350.1.13.10 ity of [place] 4.2.7.2.686 Real as Professio [phone] [address] Office [facility] 2019-06-17 2019-06-17 Ancillary Rosa Diggs [facility] 1.2.840 .114 [id number] Univers 12:02:29 13:02:29 Visit Nidhi [facility] 350.1.13.10 [place] - [phone] [facility] [address] 2019-06-17 2019-06-17 Outpatient R APOLINAR [facility] [id number] Univers 13:00:00 13:00:00 NIDHI [facility] 2019-06-04 2019-06-05 [facility] 1.2.840.114 [id number] Univers 14:36:18 15:59:44 Visit Maurizio [facility] 350.1.13.10 it [place] - [phone] Med [facility] [address] 2019-06-04 2019-06-04 Outpatient R SAMI [facility] [id number] Univers 15:00:00 15:00:00 MAURIZIO itgautam of [facility] 2019-06-02 2019-06-02 Telephone [facility] 1.2.840.114 [id number] Univers 00:00:00 00:00:00 [facility] 350.1.13.10 ity of [place] 4.2.7.2.686 Real as Professio [phone] [facility] [address] Office [facility] 2019-05-22 2019-05-22 Telephone [facility] 1.2.840.114 [id number] Univers 00:00:00 00:00:00 [facility] 350.1.13.10 ity of [place] 4.2.7.2.686 Real as Professio [phone] [facility] [address] Office [facility] 2019-05-20 2019-05-20 [facility] 1.2.840.114 [id number] Univers 14:00:00 23:59:00 Encounter Maurizio Chapman 350.1.13.10 ity of [place] 4.2.7.2.686 [facility] [phone] [facility] [address] 2019-05-20 2019-05-20 [facility] [id number] Univers 13:45:50 13:59:00 MAURIZIO itgautam [facility] 2019-05-20 2019-05-20 [facility] 1.2.840.114 [id number] Univers 13:45:00 13:59:00 Encounter Maurizio Chapman 350.1.13.10 ity of [place] 4.2.7.2.686 [facility] [phone] [facility] [address] 2019-05-20 2019-05-20 Orders Doctor CARY 1.2.840.114 [id number] Univers 00:00:00 00:00:00 Only Unassigned, SEAN 350.1.13.10 ity of [place] [facility] 4.2.7.2.686 Real as [phone] [facility] [address] 2019-05-18 2019-05-18 [facility] 1.2.840.114 [id number] Univers 14:09:00 23:59:00 Encounter Maurizio Adela 350.1.13.10 it[place].2.686 [place] [id number] [address] 2019-05-18 2019-05-18 [facility] 1.2.840.114 [id number] Univers 14:00:00 14:08:00 Encounter Maurizio Chapman 350.1.13.10 ity of [place] 4.2.7.2.686 [facility] [id number] [address] 2019-05-18 2019-05-18 Out[facility] [id number] Univers 00:00:00 14:08:00 MAURIZIO combs [facility] 2019-05-12 2019-05-12 Outpatient [facility] [id number] Univers 14:45:00 14:45:00 LEXIE combs [facility] 2019-05-12 2019-05-12 [employer] Cr[employer] Operator Cathleen, Tonia Lab Main [facility] 1.2.8 40.114 [id number] Univers 14:36:22 14:40:52 Visit Lexie Drake 350.1.13 .10 ity of [place] 4.2.7.2.686 [facility] [phone] De [facility]ical [facility] 2019-05-12 2019-05-12 Orders Doctor TOWNSEND 1.2.840.114 [id number] Univers 00:00:00 00:00:00 Only UnassignedSEAN 350.1.13.10 ity of [place] [facility] 4.2.7.2.686 Real as [phone] [facility] [address] 2019-05-11 2019-05-11 CARY Tee 1.2.840.114 [id number] Univers 00:00:00 00:00:00 Management Cain ESTRADA 350.1.13.10 ity of [facility] 4.2.7.2.686 Real as [phone] [facility] [address] 2019-05-11 2019-05-11 Telephone Yuliana [facility] 1.2.840.114 [id number] Univers 00:00:00 00:00:00 [facility] 350.1.13.10 ity of [place] 4.2.7.2.686 Real as Professio [id number] [address] Office [facility] 2019-05-08 2019-05-08 Telephone Sami [facility] 1.2.216.261 [id number] Univers 00:00:00 00:00:00 Maurizio [facility] 350.1.13.10 it y of [place].2.[place].2.686 [place] - [phone] [address] 2019-05-07 2019-05-07 [facility] 1.2.840.114 [id number] Univers 15:15:37 18:23:09 Visit Maurizio Health 350.1.13.10 it y of Cancer 4.2.7.2.686 [facility] [phone] [address] 2019-05-07 2019-05-07 Outpatient R SAMI [facility] [id number] Univers 15:45:00 15:45:00 MAURIZIO ity of [facility] 2019-04-29 2019-04-29 Telephone [facility] 1.2.840.114 [id number] Univers 00:00:00 00:00:00 [facility] 350.1.13.10 ity of [place] 4.2.7.2.686 Real as Professio [phone] [address] Office [facility] 2019-04-29 2019-04-29 Orders Doctor CARY 1.2.840.114 [id number] Univers 00:00:00 00:00:00 Only Unassigned, SEAN 350.1.13.10 ity of [place] [facility] 4.2.7.2.686 Real as [phone] [address] 2019-04-28 2019-04-28 Outpatient R YULIANA [facility] [id number] Univers 16:00:00 16:46:38 WONDIFUL ity o f [facility] 2019-04-28 2019-04-28 Office [facility] 1.2.840.114 [id number] Univers 15:48:42 16:46:38 [facility] 350.1.13.10 [place] 4.2.7.2.686 Real as Darek [phone] [address] Office [facility] 2019-04-13 2019-04-13 Outpatient Sara BRIDGES, [facility] [id number] Univers 14:30:00 14:56:12 WONDIFUL ity o f [facility] 2018-06-13 2018-06-13 Outpatient [facility] [id number] Common 13:53:00 13:53:[address] [facility] 2018-03-18 2018-03-18 Outpatient [facility] [id number] Common 16:22:00 16:22:[address] [facility] 2018-03-03 2018-03-03 [facility] [id number] Common 15:05:00 15:05:[address] [facility] 2018-01-02 2018-01-02 Outpatient [facility] [id number] Common 11:45:00 11:45:[address] [facility] 2017-12-16 2017-12-16 Outpatient [facility] 21 [id number] Common 09:45:00 09:45:[address] [facility] 2017-10-16 2017-10-16 Outpatient [facility] [id number] Common 14:17:00 14:17:[address] [facility] 2017-10-15 2017-10-15 Outpatient [facility] 14 [id number] Common 11:31:00 11:31:[address] [facility] 2017-10-09 2017-10-09 Outpatient [facility] [id number] Common 15:30:00 15:30:[address] [facility] Results Test Description Test Time Test Comments Results Result Comments Source COMP. METABOLIC PANEL (64795) 2022-11-28 21:55:35 Test Item Value Reference Range Interpretation Comme nts NA (test code = 4691402340) 138 mmol/L 135-145 K (test code = 8151080850) 3.8 mmol/L 3.5-5.0 CL (test code = 1558431463) 102 mmol/L 98-108 CO2 TOTAL (test code = 1762207774) 26 mmol/L 23-31 AGAP (test code = 2759515991) 10 2-16 BUN (test code = 9479060722) 12 mg/dL 7-23 GLUCOSE (test code = 6658240936) 111 mg/dL 70-110 H CREATININE (test code = 0.59 mg/dL 0.60-1.25 L 7621296352) TOTAL BILI (test code = 1.2 mg/dL 0.1-1.1 H 7983303195) CALCIUM (test code = 0843016975) 9.8 mg/dL 8.6-10.6 T PROTEIN (test code = 6068660871) 8.0 g/dL 6.3-8.2 ALBUMIN (test code = 7101891226) 4.5 g/dL 3.5-5.0 ALK PHOS (test code = 0448607395) 115 U/L 34-122 ALTv (test code = 1742-6) 23 U/L 5-50 AST(SGOT) (test code = 7170634493) 31 U/L 13-40 eGFR (test code = 5819573706) 144.3 mL/min/1.73m2 BERYL (test code = BERYL) [...] tests). Lab Interpretation (test code = Abnormal 54145-9) [facility] 21[facility]54[facility]50 Test Item Value Reference Range Interpretation Comments LIPASE (test code = 5071197545) 1473 U/L 0-220 H Lab Interpretation (test code = Abnormal 67353-4) [facility] WITH [id number] 21:44:10 Test Item Value Reference Range Interpretation Comments WBC (test code = 13.10 See_Comment H [Automated 6690-2) message] The system which generated this result transmit meng reference range : 4.20 - 10.70 10*3/?L. The reference range was not used to interpret this result as normal/abnormal . RBC (test code = 5.71 See_Comment H [Automated 749-8) message] The system which generated this result [...] RDW-SD (test code = 50.9 fL 38.5-51.6 96905-3) RDW-CV (test code = 14.6 % 12.1-15.4 788-0) PLT (test code = 288 See_Comment [Automated 777-3) message] The system which generated this result transmit meng reference range : 150 - 328 10*3/ ?L. The reference range was not u sed to interpret th is result as normal/abnormal . MPV (test code = 10.0 fL 9.8-13.0 58790-4) NRBC/100 WBC (test 0.0 See_Comment [Automat ed code = 7874177346) message] The system which generated this result transmit meng reference range : 0.0 - 10.0 /100 WBCs. The reference range was not used to interpret this result as normal/abnormal . NRBC x10^3 (test code See_Comment [Auto mated = 1020571048) message] The system which generated this result transmit meng reference range : 10*3/?L. The reference range was not used to interpret this result as normal/abnormal . GRAN MAT (NEUT) % 82.5 % (test code = 770-8) IMM GRAN % (test code 0.60 % = 1106081563) LYMPH % (test code = 7.6 % 736-9) MONO % (test code = 8.5 % 5905-5) EOS % (test code = 0.5 % 713-8) BASO % (test code = 0.3 % 706-2) GRAN MAT x10^3(ANC) 10.80 10*3/uL 1.99-6.95 H (test code = 3597340880) IMM GRAN x10^3 (test 0.08 10*3/uL 0.00-0.06 H code = 4100823285) LYMPH x10^3 (test code 1.00 10*3/uL 1.09-3.23 L = 731-0) MONO x10^3 (test code 1.11 10*3/uL 0.36-1.02 H = 742-7) EOS x10^3 (test code = 0.07 10*3/uL 0.06-0.53 711-2) BASO x10^3 (test code 0.04 10*3/uL 0.01-0.09 = 704-7) Lab Interpretation Abnormal (test code = 21771-0) [facility]. METABOLIC PANEL (40782)2022-11-22 19:59:50 Test Item Value Reference Range Interpretation Comments NA (test code = 140 mmol/L 135-145 0067627330) K (test code = 4.0 mmol/L 3.5-5.0 3483358230) CL (test code = 104 mmol/L 98-108 7988355498) CO2 TOTAL (test code = 27 mmol/L 23-31 4790892838) AGAP (test code = 9 2-16 1582555707) BUN (test code = 4 mg/dL 7-23 L 3197096970) GLUCOSE (test code = 94 mg/dL 70-110 2230607327) CREATININE (test code = 0.51 mg/dL 0.60-1.25 L 9708522139) TOTAL BILI (test code = 0.7 mg/dL 0.1-1.8 4120049364) CALCIUM (test code = 9.3 mg/dL 8.6-10.6 4521637637) T PROTEIN (test code = 7.5 g/dL 6.3-8.2 8772675057) ALBUMIN (test code = 4.3 g/dL 3.5-5.0 0798439303) ALK PHOS (test code = 113 U/L 34-122 0919917192) ALTv (test code = 21 U/L 5-50 1742-6) AST(SGOT) (test code = 30 U/L 13-40 9862520593) eGFR (test code = 170.7 mL/min/1.73m2 1937147013) BERYL (test code = BERYL) Association of [...] tests). Lab Interpretation Abnormal (test code = 90116-3) [facility] 19:59:29 Test Item Value Reference Range Interpretation Comments LIPASE (test code = 3224781928) 475 U/L 0-220 H Lab Interpretation (test code = Abnormal 24635-6) [facility] WITH [id number] 19:49:43 Test Item Value Reference Range Interpretation Comments WBC (test code = 8.68 See_Comment [Automated 6205-2) message] The sy stem which generated this result transmitted reference range : 4.20 - 10.70 10*3/?L. The reference range was not used to interpret this result as normal/abnormal . RBC (test code = 5.46 See_Comment [Automated 921-8) message] The sy stem which generated this [...] (test code = 52.1 fL 38.5-51.6 H 87504-9) RDW-CV (test code = 15.0 % 12.1-15.4 788-0) PLT (test code = 269 See_Comment [Automated 777-3) message] The sy stem which generated this result transmitted reference range : 150 - 328 10*3/ ?L. The reference r kevin was not used to interpret this result as normal/abnormal . MPV (test code = 9.6 fL 9.8-13.0 L 56901-2) NRBC/100 WBC (test 0.0 See_Comment [Automat ed code = 3862876286) message] The system which generated this result transmitted reference range : 0.0 - 10.0 /100 WBCs. The refer ence range was not u sed to interpret th is result as normal/abnormal . NRBC x10^3 (test code See_Comment [Auto mated = 5261772898) message] The s ystem which generated this result transmitted reference range : 10*3/?L. The reference range was not used to interpret this result as normal/abnormal . GRAN MAT (NEUT) % 75.7 % (test code = 770-8) IMM GRAN % (test code 0.50 % = 2046711981) LYMPH % (test code = 12.6 % 736-9) MONO % (test code = 9.8 % 5905-5) EOS % (test code = 0.8 % 713-8) BASO % (test code = 0.6 % 706-2) GRAN MAT x10^3(ANC) 6.58 10*3/uL 1.99-6.95 (test code = 4273209817) IMM GRAN x10^3 (test 0.04 10*3/uL 0.00-0.06 code = 9281759253) LYMPH x10^3 (test code 1.09 10*3/uL 1.09-3.23 = 731-0) MONO x10^3 (test code 0.85 10*3/uL 0.36-1.02 = 742-7) EOS x10^3 (test code = 0.07 10*3/uL 0.06-0.53 711-2) BASO x10^3 (test code 0.05 10*3/uL 0.01-0.09 = 704-7) Lab Interpretation Abnormal (test code = 84649-0) [facility] METABOLIC PANEL (NA, K, CL, CO2, GLUCOSE, BUN, CREATININE, CA)2022-11-14 11:22:12 Test Item Value Reference Range Interpretation Comments NA (test code = 141 mmol/L 135-145 4461477319) K (test code = 3.9 mmol/L 3.5-5.0 0735947884) CL (test code = 108 mmol/L 98-108 7979186531) CO2 TOTAL (test code = 28 mmol/L 23-31 3227555950) AGAP (test code = 5 2-16 0513571661) BUN (test code = 4 mg/dL 7-23 L 8629466062) GLUCOSE (test code = 75 mg/dL 70-110 3056366369) CREATININE (test code = 0.48 mg/dL 0.60-1.25 L 4203535310) CALCIUM (test code = 7.2 mg/dL 8.6-10.6 L 7695565034) eGFR (test code = 183.0 mL/min/1.73m2 3663165015) BERYL (test code = BERYL) Association of [...] tests). Lab Interpretation Abnormal (test code = 56873-8) [facility] (27365[facility] (ALB,T.PRO,BILI T,BU/BC,ALT,AST,ALK PHOS)2022-11-13 02:14:41 Test Item Value Reference Range Interpretation Comments TOTAL BILI (test code = 6636341157) 0.5 mg/dL 0.1-1.1 BILI UNCON (test code = 4569312949) 0.3 mg/dL 0.1-1.1 BILI CONJ (test code = 9384273620) 0.0 mg/dL 0.0-0.3 T PROTEIN (test code = 1085757645) 6.9 g/dL 6.3-8.2 ALBUMIN (test code = 9175522081) 3.9 g/dL 3.5-5.0 ALK PHOS (test code = 3554469059) 98 U/L 34-122 ALTv (test code = 1742-6) 17 U/L 5-50 AST(SGOT) (test code = 5190776878) 16 U/L 13-40 Lab Interpretation (test code = Normal 10813-1) [facility] 02:14:41 Test Item Value Reference Range Interpretation Comments LIPASE (test code = 3866031506) 824 U/L 0-220 H Lab Interpretation (test code = Abnormal 22668-5) [facility]OL[facility] (NA, K, CL, CO2, GLUCOSE, BUN, CREATININE, CA)2022-11-13 02:14:21 Test Item Value Reference Range Interpretation Comments NA (test code = 141 mmol/L 135-145 1131180767) K (test code = 3.4 mmol/L 3.5-5.0 L 5483507014) CL (test code = 104 mmol/L 98-108 1594205442) CO2 TOTAL (test code = 24 mmol/L 23-31 2054108172) AGAP (test code = 13 2-16 0059917788) BUN (test code = 5 mg/dL 7-23 L 5206859461) GLUCOSE (test code = 100 mg/dL 70-110 0710620560) CREATININE (test code = 0.54 mg/dL 0.60-1.25 L 3460924780) CALCIUM (test code = 8.7 mg/dL 8.6-10.6 0019336842) eGFR (test code = 159.8 mL/min/1.73m2 4511516601) BERYL (test code = BERYL) Association of [...] tests). Lab Interpretation Abnormal (test code = 11366-3) [facility] WITH [id number] 02:02:59 Test Item Value Reference Range Interpretation [...] (test code = 52.8 fL 38.5-51.6 H 68637-2) RDW-CV (test code = 14.6 % 12.1-15.4 788-0) PLT (test code = 243 See_Comment [Automated 777-3) message] The sy stem which generated this result transmitted reference range : 150 - 328 10*3/ ?L. The reference r kevin was not used to interpret this result as normal/abnormal . MPV (test code = 10.1 fL 9.8-13.0 64259-9) NRBC/100 WBC (test 0.0 See_Comment [Automat ed code = 8201909182) message] The system which generated this result transmitted reference range : 0.0 - 10.0 /100 WBCs. The refer ence range was not u sed to interpret th is result as normal/abnormal . NRBC x10^3 (test code See_Comment [Auto mated = 4144141607) message] The s ystem which generated this result transmitted reference range : 10*3/?L. The reference range was not used to interpret this result as normal/abnormal . GRAN MAT (NEUT) % 72.2 % (test code = 770-8) IMM GRAN % (test code 0.90 % = 6793307376) LYMPH % (test code = 14.7 % 736-9) MONO % (test code = 10.0 % 5905-5) EOS % (test code = 1.4 % 713-8) BASO % (test code = 0.8 % 706-2) GRAN MAT x10^3(ANC) 5.66 10*3/uL 1.99-6.95 (test code = 9012256805) IMM GRAN x10^3 (test 0.07 10*3/uL 0.00-0.06 H code = 3323881259) LYMPH x10^3 (test code 1.15 10*3/uL 1.09-3.23 = 731-0) MONO x10^3 (test code 0.78 10*3/uL 0.36-1.02 = 742-7) EOS x10^3 (test code = 0.11 10*3/uL 0.06-0.53 711-2) BASO x10^3 (test code 0.06 10*3/uL 0.01-0.09 = 704-7) Lab Interpretation Abnormal (test code = 79337-9) [facility] [id number] 16:09:41 Test Item Value Reference Range Interpretation Comments TROPONIN I (test code = 0.013 ng/mL <=0.034 9418122141) BERYL (test code = BERYL) Reference (Normal) [...] biotin. Lab Interpretation Normal (test code = 72081-3) [facility]2023-[facility]-06 22:48:51 ALCOHOL<10mg/dL11/04/2022 5:48 PM [facility]<10 Zrzbchzk54-249 Toxic>100 Depression of HEEL SEAM RUBBER>[address] [facility] METABOLIC PANEL (78125) 2022-11-04 18:25:59 Test Item Value Reference Range Interpretation Comments NA (test code = 135 mmol/L 135-145 4390218484) K (test code = 4.2 mmol/L 3.5-5.0 8747812595) CL (test code = 100 mmol/L 98-108 6254137099) CO2 TOTAL (test code = 26 mmol/L 23-31 3302347547) AGAP (test code = 9 2-16 3610449818) BUN (test code = 8 mg/dL 7-23 6311719393) GLUCOSE (test code = 126 mg/dL 70-110 H 9452578340) CREATININE (test code = 0.49 mg/dL 0.60-1.25 L 9368614767) TOTAL BILI (test code = 1.1 mg/dL 0.1-1.5 9941335033) CALCIUM (test code = 9.1 mg/dL 8.6-10.6 7803596352) T PROTEIN (test code = 7.6 g/dL 6.3-8.2 3190802598) ALBUMIN (test code = 4.1 g/dL 3.5-5.0 3939473807) ALK PHOS (test code = 113 U/L 34-122 3085477793) ALTv (test code = 21 U/L 5-50 1742-6) AST(SGOT) (test code = 41 U/L 13-40 H 1406158422) eGFR (test code = 178.7 mL/min/1.73m2 6821436152) BERYL (test code = BERYL) Association of [...] tests). Lab Interpretation Abnormal (test code = 62129-2) [facility] 18:25:18 Test Item Value Reference Range Interpretation Comments LIPASE (test code = 2515834874) 754 U/L 0-220 H Lab Interpretation (test code = Abnormal 17719-4) [facility] WITH [id number] 18:11:59 Test Item Value Reference Range Interpretation Comments WBC (test code = 10.86 See_Comment H [Automated 8090-2) message] The sy stem which generated this result transmitted reference range : 4.20 - 10.70 10*3/?L. The reference range was not used to interpret this result as normal/abnormal . RBC (test code = 5.22 See_Comment [Automated 514-8) message] The sy stem which generated this [...] (test code = 52.0 fL 38.5-51.6 H 08135-5) RDW-CV (test code = 14.9 % 12.1-15.4 788-0) PLT (test code = 256 See_Comment [Automated 777-3) message] The sy stem which generated this result transmitted reference range : 150 - 328 10*3/ ?L. The reference r kevin was not used to interpret this result as normal/abnormal . MPV (test code = 9.4 fL 9.8-13.0 L 02190-6) NRBC/100 WBC (test 0.0 See_Comment [Automat ed code = 2618176685) message] The system which generated this result transmitted reference range : 0.0 - 10.0 /100 WBCs. The refer ence range was not u sed to interpret th is result as normal/abnormal . NRBC x10^3 (test code See_Comment [Auto mated = 1798502907) message] The s ystem which generated this result transmitted reference range : 10*3/?L. The reference range was not used to interpret this result as normal/abnormal . GRAN MAT (NEUT) % 83.0 % (test code = 770-8) IMM GRAN % (test code 0.70 % = 1495750399) LYMPH % (test code = 8.0 % 736-9) MONO % (test code = 7.6 % 5905-5) EOS % (test code = 0.3 % 713-8) BASO % (test code = 0.4 % 706-2) GRAN MAT x10^3(ANC) 9.01 10*3/uL 1.99-6.95 H (test code = 5003792148) IMM GRAN x10^3 (test 0.08 10*3/uL 0.00-0.06 H code = 7595395878) LYMPH x10^3 (test code 0.87 10*3/uL 1.09-3.23 L = 731-0) MONO x10^3 (test code 0.83 10*3/uL 0.36-1.02 = 742-7) EOS x10^3 (test code = 0.03 10*3/uL 0.06-0.53 L 711-2) BASO x10^3 (test code 0.04 10*3/uL 0.01-0.09 = 704-7) Lab Interpretation Abnormal (test code = 22550-9) [facility] WITH [id number] 22:44:37 Test Item Value Reference Range Interpretation [...] (test code = 53.2 fL 38.5-51.6 H 96472-9) RDW-CV (test code = 15.3 % 12.1-15.4 788-0) PLT (test code = 293 See_Comment [Automated 777-3) message] The sy stem which generated this result transmitted reference range : 150 - 328 10*3/ ?L. The reference r kevin was not used to interpret this result as normal/abnormal . MPV (test code = 9.4 fL 9.8-13.0 L 39206-8) NRBC/100 WBC (test 0.0 See_Comment [Automat ed code = 7553847789) message] The system which generated this result transmitted reference range : 0.0 - 10.0 /100 WBCs. The refer ence range was not u sed to interpret th is result as normal/abnormal . NRBC x10^3 (test code See_Comment [Auto mated = 4217675402) message] The s ystem which generated this result transmitted reference range : 10*3/?L. The reference range was not used to interpret this result as normal/abnormal . GRAN MAT (NEUT) % 70.5 % (test code = 770-8) IMM GRAN % (test code 1.40 % = [id number]) LYMPH % (test code = 16.8 % 736-9) MONO % (test code = 9.1 % 5905-5) EOS % (test code = 1.6 % 713-8) BASO % (test code = 0.6 % 706-2) GRAN MAT x10^3(ANC) 7.63 10*3/uL 1.99-6.95 H (test code = [id number]) IMM GRAN x10^3 (test 0.15 10*3/uL 0.00-0.06 H code = [id number]) LYMPH x10^3 (test code 1.82 10*3/uL 1.09-3.23 = 731-0) MONO x10^3 (test code 0.99 10*3/uL 0.36-1.02 = 742-7) EOS x10^3 (test code = 0.17 10*3/uL 0.06-0.53 711-2) BASO x10^3 (test code 0.07 10*3/uL 0.01-0.09 = 704-7) Lab Interpretation Abnormal (test code = 34911-1) [facility] WITH [id number] 22:44:37 Test Item Value Reference Range Interpretation Comments WBC (test code = 10.83 See_Comment H [Automated 2390-2) message] The sy stem which generated this result transmitted reference range : 4.20 - 10.70 10*3/?L. The reference range was not used to interpret this result as normal/abnormal . RBC (test code = 5.03 See_Comment [Automated 619-8) message] The sy stem which generated this [...] (test code = 53.2 fL 38.5-51.6 H 04492-2) RDW-CV (test code = 15.3 % 12.1-15.4 788-0) PLT (test code = 293 See_Comment [Automated 777-3) message] The sy stem which generated this result transmitted reference range : 150 - 328 10*3/ ?L. The reference r kevin was not used to interpret this result as normal/abnormal . MPV (test code = 9.4 fL 9.8-13.0 L 45861-9) NRBC/100 WBC (test 0.0 See_Comment [Automat ed code = [id number]) message] The system which generated this result transmitted reference range : 0.0 - 10.0 /100 WBCs. The refer ence range was not u sed to interpret th is result as normal/abnormal . NRBC x10^3 (test code See_Comment [Auto mated = [id number]) message] The s ystem which generated this result transmitted reference range : 10*3/?L. The reference range was not used to interpret this result as normal/abnormal . GRAN MAT (NEUT) % 70.5 % (test code = 770-8) IMM GRAN % (test code 1.40 % = 9062512530) LYMPH % (test code = 16.8 % 736-9) MONO % (test code = 9.1 % 5905-5) EOS % (test code = 1.6 % 713-8) BASO % (test code = 0.6 % 706-2) GRAN MAT x10^3(ANC) 7.63 10*3/uL 1.99-6.95 H (test code = 9790534016) IMM GRAN x10^3 (test 0.15 10*3/uL 0.00-0.06 H code = 7088172963) LYMPH x10^3 (test code 1.82 10*3/uL 1.09-3.23 = 731-0) MONO x10^3 (test code 0.99 10*3/uL 0.36-1.02 = 742-7) EOS x10^3 (test code = 0.17 10*3/uL 0.06-0.53 711-2) BASO x10^3 (test code 0.07 10*3/uL 0.01-0.09 = 704-7) Lab Interpretation Abnormal (test code = 08001-2) [facility]00 Test Item Value Reference Range Interpretation Comments CREATININE (BEAKER) 0.63 mg/dL 0.57-1.25 (test code = 358) EGFR (BEAKER) (test 136 mL/min/1.73 ESTIM ATED GFR IS code = 1092) sq m NOT ACCURATE CREATININE CLEARANCE IN PREDICTING GLOMERULAR FILTRATION RATE . ESTIMATED GFR I S NOT APPLICABLE FOR DIALYSIS PATIEN TS. WOUND CULTURE + GRAM [id number] 16:32:00 Test Item Value Reference Range Interpretation Comments CULTURE (BEAKER) (test No growth code = 1095) GRAM STAIN RESULT 2+ WBCs (BEAKER) (test code = 1123) GRAM STAIN RESULT 1+ gram positive cocci (BEAKER) (test code = in pairs 02574) GRAM STAIN RESULT <1+ gram variable rods (BEAKER) (test code = 60234) VANCOMYCIN LEVEL, [id number] 23:37:00 Test Item Value Reference Range Interpretation Comments VANCOMYCIN TROUGH (BEAKER) (test 7.5 ug/mL 10.0-20.0 L code = 522) FL, ESOPH, SWALLOW FUNCTION, WITH CINE OR [id number] 18:19:00Cervical esophagram with GASTROGAFFINReason for exam:->status post [...] MDReport Verified Date/Time: 08/12/2018 18:19:29 Reading Location: [facility] C013X Ortho Consult Reading Room CBC W/PLT COUNT & AUTO [id number] 04:39:00 Test Item Value Reference Range Interpretation [...] (test code = 2801) TSH/FREE T4 IF [id number] 18:11:00 Test Item Value Reference Range Interpretation Comments THYROID STIMULATING HORMONE 0.75 uIU/mL 0.35-4.94 (BEAKER) (test code = 772) CBC W/PLT COUNT & AUTO [id number] 17:31:00 Test Item Value Reference Range Interpretation [...] PERCENT (BEAKER) (test code = 2801) TISSUE [id number] 10:26:00Surgical Pathology Report Case: [id number] Authorizing Provider: Jennifer Fraire MD Collected: 07/14/2018 1023 Ordering Location: [facility] PERIOPERATIVE Received: 07/14/2018 1029 SERVICES Pathologist: Jackie Hardy MD Specimens: A) - Soft Tissue, Other, rule out left superior parathyroid B) - Soft Tissue, Other, NECK DISSECTION LEVEL 1A C) - Soft Tissue, Other, TOTAL LARYNGECTOMY; PLEASE CHECK TRACHEAL AND PHARYNGEAL MARGINS D) - Soft Tissue, Other, LEFT NECK DISSECTION LEVEL 2 A. PARATHYROID GLAND,LEFT SUPERIOR, BIOPSY: - PARATHYROID TISSUE IDENTIFIED - [...] LYMPH NODES (0/2) Signing Pathologist Direct Phone Line:[phone] signed by Jackie Hardy MD on 07/25/2018 at 10:26 AMThere is a detached piece of necrotic atypical squamous cells (section C18) involving left vocal cord. The focus measures 0.2cm in greatest dimension. Underlying tissue shows ulceration and granulation tissue.LARYNX (SUPRAGLOTTIS, GLOTTIS, SUBGLOTTIS) (Larynx - All Specimens)SPECIMEN Procedure: Total laryngectomy TUMOR TumorSite: Not specified Transglottic Extension: Not identified Tumor Laterality: Not specified Histologic Type: no residual carcinoma Histologic Grade: Not applicable Tumor Focality: Cannot be determined: no residual carcinoma Tumor Size: Cannot be determined: no residual carcinoma Tumor Extent: Tumor Extension: no reidual carcinoma Accessory Findings: Lymphovascular Invasion: Not identified Perineural Invasion: Not identified MARGINS Margins: Uninvolved by invasive tumor Distance from Closest Margin inMillimeters (mm): Cannot be determined: no reidual carcinoma Location of Closest Margin, per Orientation: Cannot be determined: no reidual carcinoma Status of Non-Invasive Tumor at Margins: Uninvolved by high grade dysplasia / in situ disease Distance from Closest Margin in Millimeters (mm): Cannot bedetermined: no reidual carcinoma/dysplasia Location of Closest Margin, [...] cannot be determined from the submitted specimen(s) 37990 X3, 06745, 64378, 75111P0, 64207 X 4, 04380 x1, 85463 [id number] 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 The specimen is received informalin labeled with patient's name "CHELI", medical record number, and "neck dissection level 1A." It consists of a piece of fibroadipose tissue measuring 3.1 x 3.0 x 1.0 cm. Serial sectioning revealsno lymph node grossly. The specimen is entirely submitted in cassettes B1 through B6.C. The specimenis received fresh for intraoperative consultation labeled with patient's name "CHELI", medical recordnumber, and "total laryngectomy." It consists of the entire larynx (9.7 cm superior to inferior, 5.5cm to medial to lateral, 5.0 cm to anterior to posterior) including hyoid bone, anterior strap muscle, and a rim of skin of previous tracheostomy (3.0 x 2.5 cm). The overall orientation of the specimenis explained by the surgeon. Margins requested by [...] specimen is serially sectioned longitudinally and reveals nogross mass lesion. [place] sections are submitted as follows: C6 - [...] shows ulcer and granulation tissue. On C19, [place]-8 positivity confirms portion of thyroid tissue present. [...] stains. Immunohistochemistry technical testing was performed at [facility], Pathology Laboratory where it was developed [...] clinical laboratory testing.CBC W/PLT COUNT & AUTO [id number] 09:34:00 Test Item Value Reference Range Interpretation [...] = 3438) Received comment: User comments: Slide comments:[id number] 05:40:00 Test Item Value Reference Range Interpretation Comments PHOSPHORUS (BEAKER) (test code = 4.8 mg/dL 2.3-4.7 H 604) [id number] 05:40:00 Test Item Value Reference Range Interpretation Comments MAGNESIUM (BEAKER) (test code = 2.1 mg/dL 1.6-2.6 627) BASIC METABOLIC [id number] 05:40:00 Test Item Value Reference Range Interpretation [...] PATIEN TS. CBC W/PLT COUNT & AUTO [id number] 11:50:00 Test Item Value Reference Range Interpretation [...] 0-5 epithelial cells (BEAKER) (test code = 61835) GRAM STAIN RESULT No organisms seen (BEAKER) (test code = 66490) [id number] 06:07:00 Test Item Value Reference Range Interpretation Comments PHOSPHORUS (BEAKER) (test code = 4.6 mg/dL 2.3-4.7 604) [id number] 06:07:00 Test Item Value Reference Range Interpretation Comments MAGNESIUM (BEAKER) (test code = 2.0 mg/dL 1.6-2.6 627) BASIC METABOLIC [id number] 06:07:00 Test Item Value Reference Range Interpretation [...] APPLICABLE FOR DIALYSIS PATIEN TS. VANCOMYCIN LEVEL, [id number] 23:12:00 Test Item Value Reference Range Interpretation Comments VANCOMYCIN TROUGH (BEAKER) (test 3.2 ug/mL 10.0-20.0 L code = 522) POCT-GLUCOSE [id number] 17:57:00 Test Item Value Reference Range Interpretation Comments POC-GLUCOSE METER 105 mg/dL 70-110 TESTED AT [facility] 6720 (BEAKER) (test code = ALI[place]QUE[place] 1534) [address] CBC W/PLT COUNT & AUTO [id number] 13:00:00 Test Item Value Reference Range Interpretation [...] 3438) Received comment: User comments: Slide comments:POCT-GLUCOSE [id number] 12:50:00 Test Item Value Reference Range Interpretation Comments POC-GLUCOSE METER 117 mg/dL 70-110 H TESTED AT [facility] 6720 (BEAKER) (test code = ALIYA MARQUEZ [place] 1538) [address] [id number] 07:00:00 Test Item Value Reference Range Interpretation Comments PHOSPHORUS (BEAKER) (test code = 4.2 mg/dL 2.3-4.7 604) [id number] 07:00:00 Test Item Value Reference Range Interpretation Comments MAGNESIUM (BEAKER) (test code = 1.9 mg/dL 1.6-2.6 627) BASIC METABOLIC [id number] 07:00:00 Test Item Value Reference Range Interpretation [...] PATIEN TS. CBC W/PLT COUNT & AUTO [id number] 10:11:00 Test Item Value Reference Range Interpretation [...] = 3438) Received comment: User comments: Slide comments:[id number] 05:39:00 Test Item Value Reference Range Interpretation Comments PHOSPHORUS (BEAKER) (test code = 5.1 mg/dL 2.3-4.7 H 604) [id number] 05:39:00 Test Item Value Reference Range Interpretation Comments MAGNESIUM (BEAKER) (test code = 2.0 mg/dL 1.6-2.6 627) BASIC METABOLIC [id number] 05:39:00 Test Item Value Reference Range Interpretation [...] APPLICABLE FOR DIALYSIS PATIEN TS. VANCOMYCIN LEVEL, [id number] 23:38:00 Test Item Value Reference Range Interpretation Comments VANCOMYCIN TROUGH (BEAKER) (test 5.5 ug/mL 10.0-20.0 L code = 522) CBC W/PLT COUNT & AUTO [id number] 10:44:00 Test Item Value Reference Range Interpretation [...] = 3438) Received comment: User comments: Slide comments:[id number] 06:44:00 Test Item Value Reference Range Interpretation Comments MAGNESIUM (BEAKER) 2.1 mg/dL 1.6-2.6 Specimen slightly (test code = 627) hemolyzed [id number] 06:44:00 Test Item Value Reference Range Interpretation Comments PHOSPHORUS (BEAKER) 5.0 mg/dL 2.3-4.7 H Specimen slightly (test code = 604) hemolyzed BASIC METABOLIC [id number] 06:44:00 Test Item Value Reference Range Interpretation [...] S NOT APPLICABLE FOR DIALYSIS PATIEN TS. [id number] 06:06:00 Test Item Value Reference Range Interpretation [...] with mechanical heart valves.SPUTUM CULTURE + GRAM [id number] 14:44:00 Test Item Value Reference Range Interpretation Comments CULTURE (BEAKER) Oropharyngeal (test code = 1095) contamination, specimen rejected. Recollect requested. GRAM STAIN RESULT <1+ WBCs (BEAKER) (test code = 1123) GRAM STAIN RESULT >25 epithelial cells (BEAKER) (test code = 87981) GRAM STAIN RESULT <1+ gram positive rods (BEAKER) (test code = 23055) RAD, CHEST, 1 VIEW, NON [id number] 13:59:00Reason for exam:->leukocytosis in setting of recent laryngectomyShould [facility]?->YesFINAL REPORT INDICATION: leukocytosis in setting of recent laryngectomy COMPARISON:July 17 TECHNIQUE: Chest radiograph, single view, portable technique. FINDINGS / IMPRESSION: No pneumonia is demonstrated. Right base linear opacities represent subsegmental atelectasis. Tracheostomy tube and left low neck dissection noted. No pneumomediastinum or pneumothorax demonstrated. Cardiac and mediastinal contours unremarkable. Signed: Saray Gaviria MDReport Verified Date/Time: 07/19/2018 13:59:21 Reading Location: [address] Consult Reading Room URINALYSIS W/ REFLEX URINE [id number] 11:14:00 Test Item Value Reference Range Interpretation [...] 514) SOURCE(BEAKER) (test code = 2795) POCT-GLUCOSE [id number] 06:46:00 Test Item Value Reference Range Interpretation Comments POC-GLUCOSE METER 102 mg/dL 70-110 TESTED AT [facility] 6720 (BEAKER) (test code = AL[place] 1538) [address] [id number] 04:52:00 Test Item Value Reference Range Interpretation Comments PHOSPHORUS (BEAKER) (test code = 4.1 mg/dL 2.3-4.7 604) [id number] 04:52:00 Test Item Value Reference Range Interpretation Comments MAGNESIUM (BEAKER) (test code = 1.8 mg/dL 1.6-2.6 627) BASIC METABOLIC [id number] 04:52:00 Test Item Value Reference Range Interpretation [...] PATIEN TS. CBC W/PLT COUNT & AUTO [id number] 04:25:00 Test Item Value Reference Range Interpretation [...] IMMATURE GRANULOCYTES-RELATIVE 3 % 0-1 H PERCENT ([facility] (test code = 2801) [id number] 04:11:00 Test Item Value Reference Range Interpretation Comments PROTIME ([facility] (test code = 15.8 seconds 11.7-14.7 H 759) INR ([facility] (test code = 370) 1.2 <=5.9 PARTIAL THROMBOPLASTIN TIME 48.2 seconds 22.5-36.0 H ([facility] (test code = 760) RECOMMENDED COUMADIN/WARFARIN INR THERAPY RANGESSTANDARD DOSE: 2.0 - 3.0 Includes: PROPHYLAXIS for venous thrombosis, systemic embolization; TREATMENT for venous thrombosis and/or pulmonary embolus.HIGH RISK: Target INR is 2.5-3.5 for patients with mechanical heart valves.POCT-GLUCOSE [id number] 00:11:00 Test Item Value Reference Range Interpretation Comments POC-GLUCOSE METER 76 mg/dL 70-110 TESTED AT [place] [address] ([facility] (test code = [facility] [address] 1538) POCT-GLUCOSE [id number] 17:53:00 Test Item Value Reference Range Interpretation Comments POC-GLUCOSE METER 94 mg/dL 70-110 TESTED AT [place] [address] ([facility] (test code = [facility] [address] 1538) T4, [id number] 11:41:00 Test Item Value Reference Range Interpretation Comments FREE T4 ([facility] (test code = 655) 0.90 ng/dL 0.70-1.48 POCT-GLUCOSE [id number] 11:35:00 Test Item Value Reference Range Interpretation Comments POC-GLUCOSE METER 103 mg/dL 70-110 TESTED AT [place] [address] ([facility] (test code = [facility] 1538) [address] TSH/FREE T4 IF [id number] 10:50:00 Test Item Value Reference Range Interpretation Comments THYROID STIMULATING HORMONE 14.67 uIU/mL 0.35-4.94 H (BEAKER) (test code = 772) POCT-GLUCOSE [id number] 06:42:00 Test Item Value Reference Range Interpretation Comments POC-GLUCOSE METER 111 mg/dL 70-110 H TESTED AT [facility] 6720 (BEAKER) (test code = [place] 1536) [address] CBC W/PLT COUNT & AUTO [id number] 05:20:00 Test Item Value Reference Range Interpretation [...] H PERCENT (BEAKER) (test code = 2801) [id number] 05:00:00 Test Item Value Reference Range Interpretation Comments PHOSPHORUS (BEAKER) (test code = 5.2 mg/dL 2.3-4.7 H 604) [id number] 05:00:00 Test Item Value Reference Range Interpretation Comments MAGNESIUM (BEAKER) (test code = 2.0 mg/dL 1.6-2.6 627) BASIC METABOLIC [id number] 05:00:00 Test Item Value Reference Range Interpretation [...] S NOT APPLICABLE FOR DIALYSIS PATIEN TS. [id number] 04:55:00 Test Item Value Reference Range Interpretation [...] mechanical heart valves.CBC W/PLT COUNT & AUTO [id number] 08:47:00 Test Item Value Reference Range Interpretation [...] 3438) Received comment: User comments: Slide comments:POCT-GLUCOSE [id number] 06:41:00 Test Item Value Reference Range Interpretation Comments POC-GLUCOSE METER 115 mg/dL 70-110 H TESTED AT [facility] 6720 (BEAKER) (test code = AL[place] 8702) [address] BASIC METABOLIC [id number] 04:53:00 Test Item Value Reference Range Interpretation [...] S NOT APPLICABLE FOR DIALYSIS PATIEN TS. [id number] 04:37:00 Test Item Value Reference Range Interpretation Comments PHOSPHORUS (BEAKER) (test code = 3.9 mg/dL 2.3-4.7 604) [id number] 04:37:00 Test Item Value Reference Range Interpretation Comments MAGNESIUM (BEAKER) (test code = 1.6 mg/dL 1.6-2.6 627) [id number] 04:37:00 Test Item Value Reference Range Interpretation Comments ALBUMIN (BEAKER) (test code = 1145) 3.2 g/dL 3.5-5.0 L [id number] 04:24:00 Test Item Value Reference Range Interpretation [...] mechanical heart valves.RAD, CHEST, 1 VIEW, NON [id number] 03:56:00Reason for exam:->atelectasisShould this be performed at the bedside?->YesFINAL REPORT CLINICAL INDICATION: Support lines. Comparison: 07/16/2018 The cardiomediastinal contours are stable. The lung volumes remain low. Bibasilar parenchymal and pleural opacities are similar to previous. There is no pneumothorax. A tracheostomy tube is stable in position. A pigtail catheter overlies the left upper quadrant, probably a G-tube. Signed: Mayra Garciaeport Verified Date/Time: 07/17/2018 03:56:49 Reading Location: [address] Reading Room POCT-GLUCOSE [id number] 00:56:00 Test Item Value Reference Range Interpretation Comments POC-GLUCOSE METER 115 mg/dL 70-110 H TESTED AT [place] [address] ([facility] (test code = ALIYA Ruiz [facility] 1538) [address] POCT-GLUCOSE [id number] 18:10:00 Test Item Value Reference Range Interpretation Comments POC-GLUCOSE METER 116 mg/dL 70-110 H TESTED AT [place] [address] ([facility] (test code = ALIYA Ruiz [facility] 1538) [address] POCT-GLUCOSE [id number] 13:10:00 Test Item Value Reference Range Interpretation Comments POC-GLUCOSE METER 115 mg/dL 70-110 H TESTED AT [place] [address] ([facility] (test code = GREGORYKY Sara [facility] 1538) [address] RAD, CHEST, 1 VIEW, NON [id number] 08:20:00Reason for exam:- >atelectasisShould this be performed [...] Beltran Verified Date/Time: 07/16/2018 08:20:57 Reading Location: [facility] B1 C013X Ortho Consult Reading Room TROPONIN [id number] 08:03:00 Test Item Value Reference Range Interpretation [...] acute neurological disease, and persistent tachyarrhythmia.BLOOD GAS, [id number] 07:42:00 Test Item Value Reference Range Interpretation [...] (test code = 1819) 44.0 % POCT-GLUCOSE [id number] 06:03:00 Test Item Value Reference Range Interpretation Comments POC-GLUCOSE METER 120 mg/dL 70-110 H TESTED AT [facility] 6720 (BEAKER) (test code = [place] 1538) [address] CBC W/PLT COUNT & AUTO [id number] 04:00:00 Test Item Value Reference Range Interpretation [...] 0-1 PERCENT (BEAKER) (test code = 2801) [id number] 03:38:00 Test Item Value Reference Range Interpretation Comments MAGNESIUM (BEAKER) 2.0 mg/dL 1.6-2.6 Specimen slightly (test code = 627) hemolyzed [id number] 03:38:00 Test Item Value Reference Range Interpretation Comments PHOSPHORUS (BEAKER) 3.6 mg/dL 2.3-4.7 Specimen slightly (test code = 604) hemolyzed BASIC METABOLIC [id number] 03:38:00 Test Item Value Reference Range Interpretation [...] S NOT APPLICABLE FOR DIALYSIS PATIEN TS. [id number] 03:38:00 Test Item Value Reference Range Interpretation Comments ALBUMIN (BEAKER) (test 3.9 g/dL 3.5-5.0 Speci men slightly code = 1145) hemolyzed [id number] 03:31:00 Test Item Value Reference Range Interpretation Comments PROTIME (BEAKER) (test code = 15.5 seconds 11.7-14.7 H 759) INR (BEAKER) (test code = 370) 1.2 <=5.9 PARTIAL THROMBOPLASTIN TIME 34.5 seconds 22.5-36.0 ([facility] (test code = 760) RECOMMENDED COUMADIN/WARFARIN INR THERAPY RANGESSTANDARD DOSE: 2.0 - 3.0 Includes: PROPHYLAXIS for venous thrombosis, systemic embolization; TREATMENT for venous thrombosis and/or pulmonary embolus.HIGH RISK: Target INR is 2.5-3.5 for patients with mechanical heart valves.POCT-GLUCOSE [id number] 23:39:00 Test Item Value Reference Range Interpretation Comments POC-GLUCOSE METER 121 mg/dL 70-110 H TESTED AT [place] [address] ([facility] (test code = [facility] 1538) [address] POCT-GLUCOSE [id number] 18:25:00 Test Item Value Reference Range Interpretation Comments POC-GLUCOSE METER 112 mg/dL 70-110 H TESTED AT [place] [address] ([facility] (test code = [facility] 1538) [address] T4, [id number] 12:56:00 Test Item Value Reference Range Interpretation Comments FREE T4 ([facility] (test code = 655) 1.17 ng/dL 0.70-1.48 POCT-GLUCOSE [id number] 11:35:00 Test Item Value Reference Range Interpretation Comments POC-GLUCOSE METER 143 mg/dL 70-110 H TESTED AT [place] [address] ([facility] (test code = [facility] 1538) [address] CBC W/PLT COUNT & AUTO [id number] 07:50:00 Test Item Value Reference Range Interpretation Comments WHITE BLOOD CELL COUNT ([facility] 24.1 K/ L 3.5-10.5 H (test code = 775) RED BLOOD CELL COUNT ([facility] 3.75 M/ L 4.63-6.08 L (test code = 761) HEMOGLOBIN ([facility] (test code = 11.7 GM/DL 13.7-17.5 L 410) HEMATOCRIT ([facility] (test code = 35.7 % 40.1-51.0 L 411) MEAN CORPUSCULAR VOLUME ([facility] 95.2 fL 79.0-92.2 H (test code = 753) MEAN CORPUSCULAR HEMOGLOBIN 31.2 pg 25.7-32.2 ([facility] (test code = 751) MEAN CORPUSCULAR HEMOGLOBIN [...] MDReport Verified Date/Time: 07/15/2018 05:48:22 Reading Location: [facility] C0[facility] Neuro Reading Room POCT-GLUCOSE METER 2018-07-15 05:47:00 Test Item Value Reference Range Interpretation Comments POC-GLUCOSE METER 177 mg/dL 70-110 H TESTED AT [facility] 6720 (BEAKER) (test code = [place] 1538) [address] [id number] 04:29:00 Test Item Value Reference Range Interpretation Comments PHOSPHORUS (BEAKER) (test code = 2.3 mg/dL 2.3-4.7 604) [id number] 04:29:00 Test Item Value Reference Range Interpretation Comments MAGNESIUM (BEAKER) (test code = 1.7 mg/dL 1.6-2.6 627) BASIC METABOLIC [id number] 04:29:00 Test Item Value Reference Range Interpretation [...] S NOT APPLICABLE FOR DIALYSIS PATIEN TS. [id number] 04:29:00 Test Item Value Reference Range Interpretation Comments ALBUMIN (BEAKER) (test code = 1145) 3.8 g/dL 3.5-5.0 [id number] 04:22:00 Test Item Value Reference Range Interpretation [...] 2.5-3.5 for patients with mechanical heart valves.POCT-GLUCOSE [id number] 23:55:00 Test Item Value Reference Range Interpretation Comments POC-GLUCOSE METER 159 mg/dL 70-110 H TESTED AT [facility] 6720 (BEAKER) (test code = AL[place] 1538) [address] [id number] 19:41:00 Test Item Value Reference Range Interpretation Comments THYROID STIMULATING HORMONE 6.82 uIU/mL 0.35-4.94 H (BEAKER) (test code = 772) [id number] 19:26:00 Test Item Value Reference Range Interpretation Comments PHOSPHORUS (BEAKER) (test code = 4.9 mg/dL 2.3-4.7 H 604) Postop labsPostop labsPostop labsPostop [id number] 19:26:00 Test Item Value Reference Range Interpretation Comments MAGNESIUM (BEAKER) (test code = 1.9 mg/dL 1.6-2.6 627) Postop labsPostop labsPostop labsPostop labsBASIC METABOLIC [id number] 19:26:00 Test Item Value Reference Range Interpretation [...] DIALYSIS PATIEN TS. Postop labsPostop labsPostop labsPostop [id number] 19:26:00 Test Item Value Reference Range Interpretation Comments ALBUMIN (BEAKER) (test code = 1145) 3.9 g/dL 3.5-5.0 Postop labsPostop labsPostop labsPostop [id number] 19:24:00 Test Item Value Reference Range Interpretation Comments PREALBUMIN (BEAKER) 17 mg/dL 14-45 Specimen slightly (test code = 586) hemolyzed PTH, [id number] 19:23:00 Test Item Value Reference Range Interpretation Comments PARATHYROID HORMONE INTACT 16.1 pg/mL 8.5-72.5 (BEAKER) (test code = 577) Postop LabsCBC W/PLT COUNT & AUTO [id number] 18:58:00 Test Item Value Reference Range Interpretation [...] (BEAKER) (test code = 2801) BLOOD GAS, [id number] 15:31:00 Test Item Value Reference Range Interpretation [...] 1819) 100.0 % HGB/HCT (H&H) - STAT [id number] 15:31:00 Test Item Value Reference Range Interpretation Comments HEMOGLOBIN (BEAKER) (test code = 11.0 g/dL 13.0-16.8 L 410) HEMATOCRIT (BEAKER) (test code = 32.0 % 40.0-50.0 L 411) GLUCOSE-STAT [id number] 15:30:00 Test Item Value Reference Range Interpretation Comments GLUCOSE RANDOM (BEAKER) (test code = 87 mg/dL 70-110 652) SODIUM NA-STAT [id number] 15:30:00 Test Item Value Reference Range Interpretation Comments SODIUM (BEAKER) (test code = 381) 137 meq/L 135-148 POTASSIUM-STAT [id number] 15:30:00 Test Item Value Reference Range Interpretation Comments POTASSIUM (BEAKER) (test code = 4.0 meq/L 3.6-5.5 379) ANG, INSERTION G TUBE, W/ [id number] 14:18:00Reason for exam:- >Gastrostomy tubeFINAL REPORT Fluoroscopic guided gastrostomy tube placement, 07/11/2018. Clinical History: Laryngeal cancer. Modality: Fluoroscopy. Superintendent: Jack Lima MD. Yard Coupler:Dilip Vivas MD. Conscious sedation: 2.0 mg Versed, [...] After the tract was dilated, a 14 [place] catheterwas placed into the stomach. The wire [...] MDReport Verified Date/Time: 07/11/2018 14:18:50 Reading Location: [place] [address] Angio Body Reading Room TSH/FREE T4 IF [id number] 13:24:00 Test Item Value Reference Range Interpretation Comments THYROID STIMULATING HORMONE 2.37 uIU/mL 0.35-4.94 (BEAKER) (test code = 772) RAD, CHEST, PA OR AP, 1 [id number] 11:03:00Reason for exam:->coughShould this be performed at the bedside?->NoFINAL REPORT AP chest HISTORY: Cough. COMPARISON: 06/17/2018. IMPRESSION: Tracheostomy tube present. Heart size normal. Lungs clear without effusion or pneumothorax. Intact skeleton. Signed: Ashok Whitaker MDReport Verified Date/Time: 07/10/2018 11:03:24 Reading Location: [address] Radiology Reading Room COMPREHENSIVE METABOLIC [id number] 10:52:00 Test Item Value Reference Range Interpretation [...] PATIEN TS. CBC W/PLT COUNT & AUTO [id number] 10:32:00 Test Item Value Reference Range Interpretation [...] H PERCENT (BEAKER) (test code = 2801) [id number] 10:30:00 Test Item Value Reference Range Interpretation [...] 2.5-3.5 for patients with mechanical heart valves.BLOOD [id number] 20:01:00 Test Item Value Reference Range Interpretation Comments CULTURE (BEAKER) (test No growth in 5 days code = 1095) BLOOD [id number] 20:01:00 Test Item Value Reference Range Interpretation Comments CULTURE (BEAKER) (test No growth in 5 days code = 1095) CBC W/PLT COUNT & AUTO [id number] 12:54:00 Test Item Value Reference Range Interpretation [...] Received comment: User comments: Slide comments:BASIC METABOLIC [id number] 06:44:00 Test Item Value Reference Range Interpretation [...] NOT APPLICABLE FOR DIALYSIS PATIEN TS. BLOOD [id number] 12:01:00 Test Item Value Reference Range Interpretation Comments CULTURE (BEAKER) (test No growth in 5 days code = 1095) CBC W/PLT COUNT & AUTO [id number] 11:06:00 Test Item Value Reference Range Interpretation [...] Received comment: User comments: Slide comments:BASIC METABOLIC [id number] 08:11:00 Test Item Value Reference Range Interpretation [...] NOT APPLICABLE FOR DIALYSIS PATIEN TS. BLOOD [id number] 08:01:00 Test Item Value Reference Range Interpretation Comments CULTURE (BEAKER) (test No growth in 5 days code = 1095) BLOOD [id number] 02:00:00 Test Item Value Reference Range Interpretation Comments CULTURE (BEAKER) (test No growth in 5 days code = 1095) BLOOD [id number] 02:00:00 Test Item Value Reference Range Interpretation Comments CULTURE (BEAKER) (test No growth in 5 days code = 1095) CBC W/PLT COUNT & AUTO [id number] 15:32:00 Test Item Value Reference Range Interpretation [...] Received comment: User comments: Slide comments:BASIC METABOLIC [id number] 07:38:00 Test Item Value Reference Range Interpretation [...] PATIEN TS. CBC W/PLT COUNT & AUTO [id number] 12:37:00 Test Item Value Reference Range Interpretation [...] Received comment: User comments: Slide comments:BASIC METABOLIC [id number] 12:04:00 Test Item Value Reference Range Interpretation [...] APPLICABLE FOR DIALYSIS PATIEN TS. VANCOMYCIN LEVEL, [id number] 12:02:00 Test Item Value Reference Range Interpretation Comments VANCOMYCIN RANDOM (BEAKER) (test 1.3 ug/mL code = 523) Reference Range: No [id number] 12:00:00 Test Item Value Reference Range Interpretation Comments MAGNESIUM (BEAKER) (test code = 2.2 mg/dL 1.6-2.6 627) SPUTUM CULTURE + GRAM [id number] 11:45:00 Test Item Value Reference Range Interpretation [...] 15-20 epithelial (BEAKER) (test code cells = 688065) GRAM STAIN RESULT <1+ gram negative (BEAKER) (test code coccobacilli = 090657) GRAM STAIN RESULT <1+ gram positive (BEAKER) (test code cocci in pairs = 496185) GRAM STAIN RESULT <1+ yeast with (BEAKER) (test code pseudohyphae = 417108) GRAM STAIN RESULT 1+ gram variable (BEAKER) (test code rods = 720102) 1+ [facility]O DIFFERENTIAL [...] H PERCENT (BEAKER) (test code = 2801) [id number] 14:37:00 Test Item Value Reference Range Interpretation Comments PROCALCITONIN (BEAKER) (test code 0.08 ng/mL <0.05 H = 3036) SEPSIS RISK (ng/mL)Low: 0.05-0.50Intermediate: 0.51-2.00High: >=2.01LACTIC ACID, [id number] 13:43:00 Test Item Value Reference Range Interpretation Comments LACTATE BLOOD VENOUS 2.4 mmol/L 0.5-2.2 H Specime n slightly (2) (BEAKER) (test hemolyzed code = 2872) TISSUE [id number] 13:24:00Surgical Pathology Report Case: [id number] Authorizing Provider: Jennifer Fraire MD Collected: 06/09/2018 1735 Ordering Location: [address] Received: 06/10/2018 0811 Cardiovascular Pathologist: Jennifer Hull MD Specimen: Soft Tissue, Other, LEFT SUPRAGLOTTIC MASS LEFT SUPRAGLOTTIC MASS, LARYNGOSCOPIC BIOPSY: - ATYPICAL SQUAMOUS PROLIFERATION (SEE COMMENT) Signing Pathologist Direct Phone Line: [phone] signed by Jennifer Hull MD on 06/17/2018 [...] is seen. The biopsy may not be medical office representative of the entirelesion; Clinical correlation is recommended.28280; 67862; 60625Wrqjoavtq mass Left subglottic massThe specimen is received in a fluidless container labeled with patient information and labeled "left supraglottic mass" consisting of four fragments of red softtissue ranging from 0.1 to 0.4 cm, submitted entirely A1. CG/pl PERFORMEDThe interpretation of this case included the use of immunohistochemistry or special stains. p53 and AE1/SH5Drnehqvncsttqiwmdpjy t echnical testing was performed at [facility], Pathology Laboratory where it was developed [...] testing.FL, ESOPH, SWALLOW FUNCTION, WITH CINE OR [id number] 12:08:00Reason for exam:->silent aspiration evaluationFINAL REPORT Modified [...] MDReport Verified Date/Time: 06/17/2018 12:08:38 Reading Location: [address] OrthoConsult Reading Room [id number] 09:44:00 Test Item Value Reference Range Interpretation Comments MAGNESIUM (BEAKER) (test code = 1.9 mg/dL 1.6-2.6 627) [id number] 09:44:00 Test Item Value Reference Range Interpretation Comments PHOSPHORUS (BEAKER) (test code = 2.9 mg/dL 2.3-4.7 604) RAD, CHEST, 1 VIEW, NON [id number] 08:16:00Reason for exam:->SOBShould this be performed at [...] Avelar Verified Date/Time: 06/17/2018 08:16:46 Reading Location: [facility] Radiology Reading Room BASIC METABOLIC [id number] 06:25:00 Test Item Value Reference Range Interpretation [...] APPLICABLE FOR DIALYSIS PATIEN TS. VANCOMYCIN LEVEL, [id number] 06:25:00 Test Item Value Reference Range Interpretation Comments VANCOMYCIN RANDOM (BEAKER) (test 9.6 ug/mL code = 523) Reference Range: No NormalsDraw 30 min prior to scheduled dose, HOLD if level > 20 mcg/mL, informMD.RESPIRATORY PANEL [id number] 12:23:00 Test Item Value Reference Range Interpretation [...] decisions. This sample was tested at the [facility] Molecular Diagnostics Laboratory using the InteKrin FilmArray Respiratory Panel. It is FDA cleared and has been verified and approved by the [facility] for clinical use on nasal swab specimens. It is not FDA-cleared for use on bronchial wash/lavage samples. However, for this sample type, validation was performed and test characteristics were determined and approved, by [facility] laboratory for clinical use under the Clinical Laboratory Improvement Amendments (CLIA) of 1988 requirements. Therefore, FDA clearance isnot required. This laboratory is CLIA- certified and [employer] ([employer])-accredited to perform high complexity testing.CBC W/PLT COUNT & AUTO [id number] 11:27:00 Test Item Value Reference Range Interpretation [...] comments:CT, CHEST WITH IV CONTRAST- PE TEST [id number] 09:53:00Worsening hypoxia s/o diagnosis and excision of [...] MDReport Verified Date/Time: 06/16/2018 09:53:01 Reading Location: [facility] Diagnostic Imaging Reading Room - [place] [address] RAD, CHEST, 1 VIEW, NON [id number] 07:36:00Reason for exam:->recent pneumothorax, new trachShould this [...] MDReport Verified Date/Time: 06/16/2018 07:36:27 Reading Location: [facility] Radiology Reading Room BASIC METABOLIC [id number] 05:45:00 Test Item Value Reference Range Interpretation [...] S NOT APPLICABLE FOR DIALYSIS PATIEN TS. [id number] 18:12:00 Test Item Value Reference Range Interpretation Comments MAGNESIUM (BEAKER) 2.0 mg/dL 1.6-2.6 Specimen slightly (test code = 627) hemolyzed BASIC METABOLIC [id number] 18:12:00 Test Item Value Reference Range Interpretation [...] PATIEN TS. RAD, CHEST, 1 VIEW, NON [id number] 13:18:00Reason for exam:->recent pneumothorax, new trachShould this [...] MDReport Verified Date/Time: 06/15/2018 13:18:45 Reading Location: [address] Neuro Reading Room BLOOD GAS, [id number] 11:41:00 Test Item Value Reference Range Interpretation [...] hour post initaition of vent support \\R\\1015TROPONIN [id number] 09:49:00 Test Item Value Reference Range Interpretation [...] 66 pg/mL 0-100 (test code = 700) [id number] 09:29:00 Test Item Value Reference Range Interpretation [...] exclusion of thrombosis is within 95-100% range. [id number] 09:12:00 Test Item Value Reference Range Interpretation Comments FIBRINOGEN LEVEL (BEAKER) (test 621 mg/dl 225-434 H code = 658) [id number] 09:10:00 Test Item Value Reference Range Interpretation Comments PHOSPHORUS (BEAKER) (test code = 2.8 mg/dL 2.3-4.7 604) [id number] 09:10:00 Test Item Value Reference Range Interpretation Comments MAGNESIUM (BEAKER) (test code = 1.9 mg/dL 1.6-2.6 627) COMPREHENSIVE METABOLIC [id number] 09:10:00 Test Item Value Reference Range Interpretation [...] S NOT APPLICABLE FOR DIALYSIS PATIEN TS. [id number] 09:01:00 Test Item Value Reference Range Interpretation [...] for patients with mechanical heart valves.LACTIC ACID, [id number] 08:51:00 Test Item Value Reference Range Interpretation Comments LACTATE BLOOD 0.8 mmol/L 0.5-2.2 Specimen sligh tly ARTERIAL (2) (BEAKER) hemoly zed (test code = 2874) BLOOD GAS, [id number] 08:40:00 Test Item Value Reference Range Interpretation [...] (BEAKER) (test code = 1819) 80.0 % [id number] 08:00:00 Test Item Value Reference Range Interpretation Comments MAGNESIUM (BEAKER) (test code = 1.8 mg/dL 1.6-2.6 627) Add onCBC W/PLT COUNT & AUTO [id number] 06:45:00 Test Item Value Reference Range Interpretation [...] (BEAKER) (test code = 2801) BASIC METABOLIC [id number] 06:35:00 Test Item Value Reference Range Interpretation [...] PATIEN TS. RAD, CHEST, 1 VIEW, NON [id number] 05:10:00Reason for exam:->sob, tachypneaShould this be performed [...] Carrillo Verified Date/Time: 06/15/2018 05:10:33 Reading Location: [address] Transitional Reading Room POCT-LACTIC ACID, VENOUS 2018-06-15 04:30:00 Test Item Value Reference Range Interpretation Comments POC-LACTIC ACID, 1.1 mmol/L 0.9-1.[address] [facility] 6720 VENOUS (BEAKER) (test ALIYA Ruiz [place] code = 2805) [address] URINALYSIS W/ REFLEX URINE [id number] 20:03:00 Test Item Value Reference Range Interpretation [...] = 2795) RAD, CHEST, 1 VIEW, NON [id number] 19:10:00Reason for exam:->SUSUPECTED INFECTIONShould this be performed [...] MDReport Verified Date/Time: 06/14/2018 19:10:10 Reading Location: [address] Reading Room CBC W/PLT COUNT & AUTO [id number] 04:36:00 Test Item Value Reference Range Interpretation [...] = 2801) RAD, CHEST, 1 VIEW, NON [id number] 04:13:00Reason for exam:->recent pneumothorax, new trachShould this [...] Carrillo Verified Date/Time: 06/14/2018 04:13:50 Reading Location: [address] Transitional Reading Room D GAS, [id number] 01:01:00 Test Item Value Reference Range Interpretation [...] (test code = 1819) 40.0 % POCT-GLUCOSE [id number] 05:32:00 Test Item Value Reference Range Interpretation Comments POC-GLUCOSE METER 92 mg/dL 70-110 TESTED AT [facility] 6720 (BEAKER) (test code = ALIYA Ruiz [facility] [address] 1538) RAD, CHEST, 1 VIEW, NON [id number] 05:03:00Reason for exam:->evaluate for pneumo r/t CTShould [...] Carrillo Verified Date/Time: 06/13/2018 05:03:31 Reading Location: [address] Transitional Reading Room [id number] 04:22:00 Test Item Value Reference Range Interpretation Comments PARTIAL THROMBOPLASTIN TIME 27.4 seconds 22.5-36.0 (BEAKER) (test code = 760) PROTHROMBIN [id number] 04:21:00 Test Item Value Reference Range Interpretation Comments PROTIME (BEAKER) (test code = 13.8 seconds 11.7-14.7 759) INR (BEAKER) (test code = 370) 1.1 <=5.9 RECOMMENDED COUMADIN/WARFARIN INR THERAPY RANGESSTANDARD DOSE: 2.0 - 3.0 Includes: PROPHYLAXIS for venous thrombosis, systemic embolization; TREATMENT for venous thrombosis and/or pulmonary embolus.HIGH RISK: Target INR is 2.5-3.5 for patients with mechanical heart valves.[id number] 04:20:00 Test Item Value Reference Range Interpretation Comments PHOSPHORUS (BEAKER) (test code = 3.1 mg/dL 2.3-4.7 604) [id number] 04:20:00 Test Item Value Reference Range Interpretation Comments MAGNESIUM (BEAKER) (test code = 2.0 mg/dL 1.6-2.6 627) BASIC METABOLIC [id number] 04:20:00 Test Item Value Reference Range Interpretation [...] PATIEN TS. CBC W/PLT COUNT & AUTO [id number] 04:14:00 Test Item Value Reference Range Interpretation [...] PERCENT (BEAKER) (test code = 2801) POCT-GLUCOSE [id number] 00:14:00 Test Item Value Reference Range Interpretation Comments POC-GLUCOSE METER 126 mg/dL 70-110 H TESTED AT [place] [address] ([facility] (test code = [facility] 1538) [address] RAD, CHEST, 1 VIEW, NON [id number] 12:29:00Reason for exam:->s/p[ L thoracocentesisFINAL REPORT CLINICAL HISTORY: s/p[ L thoracocentesis TECHNIQUE: 1 view of the chest. COMPARISON: 06/12/2018 IMPRESSION: A tracheostomy tube is again seen. There is no pneumothorax. Bibasilar atelectasis is again noted. There is no significant appearing pleural fluid. The cardiomediastinal silhouette is magnified by technique. Signed: Jim Steele MDReport Verified Date/Time: 06/12/2018 12:29:27 Reading Location: [facility] C013W Consult Reading Room POCT-GLUCOSE [id number] 12:10:00 Test Item Value Reference Range Interpretation Comments POC-GLUCOSE METER 194 mg/dL 70-110 H TESTED AT [place] [address] ([facility] (test code = [facility] 1538) [address] CT, CHEST, WITH [id number] 10:26:00Premedicated for contrast allergy. 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 Signed: Saray aGviria MDReport Verified Date/Time: 06/12/2018 10:26:26 Reading Location: [facility] Diagnostic Imaging Reading Room - [place] [address] , SOFT TISSUE NECK, [id number] 09:53:00Premedicated for contrast allergy. With gneral anesthesia [...] MCGARRYeport Verified Date/Time: 06/12/2018 09:53:06 Reading Location: [address] Neuro Reading Room [id number] 06:00:00 Test Item Value Reference Range Interpretation Comments PHOSPHORUS (BEAKER) (test code = 2.9 mg/dL 2.3-4.7 604) [id number] 06:00:00 Test Item Value Reference Range Interpretation Comments MAGNESIUM (BEAKER) (test code = 2.1 mg/dL 1.6-2.6 627) BASIC METABOLIC [id number] 06:00:00 Test Item Value Reference Range Interpretation [...] NOT APPLICABLE FOR DIALYSIS PATIEN TS. POCT-GLUCOSE [id number] 05:44:00 Test Item Value Reference Range Interpretation Comments POC-GLUCOSE METER 157 mg/dL 70-110 H TESTED AT [facility] 6720 (BEAKER) (test code = ALIYA [place] 1538) [address] CBC W/PLT COUNT & AUTO [id number] 04:29:00 Test Item Value Reference Range Interpretation [...] = 2801) RAD, CHEST, 1 VIEW, NON [id number] 04:26:00Reason for exam:->evaluate for pneumo r/t CTShould this be performed at the bedside?->YesFINAL REPORT CLINICAL INDICATION: Support lines. Comparison: 06/10/2018 The cardiomediastinal contours are stable. The lung volumes remain low. The lateral pulmonary opacities are similar to previous within variation of acquisition technique. There is no pneumothorax. A tracheostomy tube is stable. Signed: Mayra Garcia MDReport Verified Date/Time: 06/12/2018 04:26:44 Reading Location: [address] Reading Room [id number] 04:02:00 Test Item Value Reference Range Interpretation Comments PARTIAL THROMBOPLASTIN TIME 29.1 seconds 22.5-36.0 (BEAKER) (test code = 760) PROTHROMBIN [id number] 04:01:00 Test Item Value Reference Range Interpretation Comments PROTIME (BEAKER) (test code = 13.4 seconds 11.7-14.7 759) INR (BEAKER) (test code = 370) 1.0 <=5.9 RECOMMENDED COUMADIN/WARFARIN INR THERAPY RANGESSTANDARD DOSE: 2.0 - 3.0 Includes: PROPHYLAXIS for venous thrombosis, systemic embolization; TREATMENT for venous thrombosis and/or pulmonary embolus.HIGH RISK: Target INR is 2.5-3.5 for patients with mechanical heart valves.POCT-GLUCOSE [id number] 00:10:00 Test Item Value Reference Range Interpretation Comments POC-GLUCOSE METER 225 mg/dL 70-110 H TESTED AT [facility] 6720 (BEAKER) (test code = ALIYA Ruiz [place] 1538) [address] POCT-GLUCOSE [id number] 06:14:00 Test Item Value Reference Range Interpretation Comments POC-GLUCOSE METER 129 mg/dL 70-110 H TESTED AT [facility] 6720 (BEAKER) (test code = ALIYA Ruiz [place] 1538) [address] TSH/FREE T4 IF [id number] 04:46:00 Test Item Value Reference Range Interpretation Comments THYROID STIMULATING HORMONE 0.87 uIU/mL 0.35-4.94 (BEAKER) (test code = 772) CBC W/PLT COUNT & AUTO [id number] 04:30:00 Test Item Value Reference Range Interpretation [...] 0-1 PERCENT (BEAKER) (test code = 2801) [id number] 04:26:00 Test Item Value Reference Range Interpretation Comments PREALBUMIN (BEAKER) (test code = 25 mg/dL 14-45 586) [id number] 04:24:00 Test Item Value Reference Range Interpretation Comments PHOSPHORUS (BEAKER) (test code = 3.5 mg/dL 2.3-4.7 604) [id number] 04:24:00 Test Item Value Reference Range Interpretation Comments MAGNESIUM (BEAKER) (test code = 2.0 mg/dL 1.6-2.6 627) BASIC METABOLIC [id number] 04:24:00 Test Item Value Reference Range Interpretation [...] mg/dL 8.4-10.2 (test code = 697) EGFR ([facility] (test 127 mL/min/1.73 ESTIM ATED GFR IS code = 1092) sq m NOT ACCURATE CREATININE CLEARANCE IN PREDICTING GLOMERULAR FILTRATION RATE . ESTIMATED GFR I S NOT APPLICABLE FOR DIALYSIS PATIEN TS. PROTHROMBIN [id number] 04:19:00 Test Item Value Reference Range Interpretation Comments PROTIME ([facility] (test code = 14.5 seconds 11.7-14.7 759) INR ([facility] (test code = 370) 1.1 <=5.9 RECOMMENDED COUMADIN/WARFARIN INR THERAPY RANGESSTANDARD DOSE: 2.0 - 3.0 Includes: PROPHYLAXIS for venous thrombosis, systemic embolization; TREATMENT for venous thrombosis and/or pulmonary embolus.HIGH RISK: Target INR is 2.5-3.5 for patients with mechanical heart valves.[id number] 04:19:00 Test Item Value Reference Range Interpretation Comments PARTIAL THROMBOPLASTIN TIME 29.7 seconds 22.5-36.0 ([facility] (test code = 760) POCT-GLUCOSE [id number] 01:04:00 Test Item Value Reference Range Interpretation Comments POC-GLUCOSE METER 128 mg/dL 70-110 H TESTED AT [place] [address] ([facility] (test code = ALIYA Ruiz [place] 1538) [address] POCT-GLUCOSE [id number] 18:19:00 Test Item Value Reference Range Interpretation Comments POC-GLUCOSE METER 93 mg/dL 70-110 TESTED AT [place] [address] ([facility] (test code = ALIYA Ruiz [facility] [address]38) POCT-GLUCOSE [id number] 11:44:00 Test Item Value Reference Range Interpretation Comments POC-GLUCOSE METER 87 mg/dL 70-110 TESTED AT [place] [address] ([facility] (test code = [place] [address] 1538) POCT-GLUCOSE [id number] 06:13:00 Test Item Value Reference Range Interpretation Comments POC-GLUCOSE METER 158 mg/dL 70-110 H TESTED AT [place] [address] ([facility] (test code = ALIYA Ruiz [place] 1538) [address] BLOOD GAS, [id number] 04:53:00 Test Item Value Reference Range Interpretation Comments PH VENOUS ([facility] (test code = 7.48 7.32-7.42 H 701) [...] = 1818) RAD, CHEST, 1 VIEW, NON [id number] 04:42:00Reason for exam:->s/p tracheostomyShould this be performed [...] Carrillo Verified Date/Time: 06/10/2018 04:42:37 Reading Location: [address] Reading Room [id number] 04:29:00 Test Item Value Reference Range Interpretation Comments MAGNESIUM (BEAKER) 2.2 mg/dL 1.6-2.6 Specimen slightly (test code = 627) hemolyzed [id number] 04:29:00 Test Item Value Reference Range Interpretation Comments PHOSPHORUS (BEAKER) 3.7 mg/dL 2.3-4.7 Specimen slightly (test code = 604) hemolyzed BASIC METABOLIC [id number] 04:29:00 Test Item Value Reference Range Interpretation [...] S NOT APPLICABLE FOR DIALYSIS PATIEN TS. [id number] 04:18:00 Test Item Value Reference Range Interpretation Comments PARTIAL THROMBOPLASTIN TIME 24.5 seconds 22.5-36.0 (BEAKER) (test code = 760) PROTHROMBIN [id number] 04:17:00 Test Item Value Reference Range Interpretation Comments PROTIME (BEAKER) (test code = 13.7 seconds 11.7-14.7 759) INR (BEAKER) (test code = 370) 1.0 <=5.9 RECOMMENDED COUMADIN/WARFARIN INR THERAPY RANGESSTANDARD DOSE: 2.0 - 3.0 Includes: PROPHYLAXIS for venous thrombosis, systemic embolization; TREATMENT for venous thrombosis and/or pulmonary embolus.HIGH RISK: Target INR is 2.5-3.5 for patients with mechanical heart valves.CBC W/PLT COUNT & AUTO [id number] 04:06:00 Test Item Value Reference Range Interpretation [...] PERCENT (BEAKER) (test code = 2801) POCT-GLUCOSE [id number] 01:05:00 Test Item Value Reference Range Interpretation Comments POC-GLUCOSE METER 161 mg/dL 70-110 H TESTED AT [facility] 6720 ([facility] (test code = ALIYA [place] 1538) [address] RAD, CHEST, 1 VIEW, NON [id number] 22:19:00Reason for exam:->Laryngeal massShould this be performed [...] Morales Verified Date/Time: 06/09/2018 22:19:49 Reading Location: [address] Consult Reading Room RAD, CHEST, 1 VIEW, NON [id number] 20:37:00Reason for exam:->Laryngeal massShould this be performed [...] Morales Verified Date/Time: 06/09/2018 20:37:30 Reading Location: [facility] Consult Reading Room RAD, CHEST, 1 VIEW, NON [id number] 20:18:00 Reason for exam:->Post-opShould this be performed [...] Osseous structures are unremarkable. Signed: Ivanna Carrillo MDReport Verified Date/Time: 06/09/2018 20:18:45 Nayla caldera Location: [address] Reading Room CBC W/PLT COUNT & AUTO [id number] 19:32:00 Test Item Value Reference Range Interpretation [...] = 3438) Received comment: User comments: Slide comments:[id number] 19:25:00 Test Item Value Reference Range Interpretation Comments PHOSPHORUS (BEAKER) (test code = 4.7 mg/dL 2.3-4.7 604) [id number] 19:25:00 Test Item Value Reference Range Interpretation Comments MAGNESIUM (BEAKER) (test code = 2.2 mg/dL 1.6-2.6 627) BASIC METABOLIC [id number] 19:25:00 Test Item Value Reference Range Interpretation [...] NOT APPLICABLE FOR DIALYSIS PATIEN TS. PROTHROMBIN [id number] 19:18:00 Test Item Value Reference Range Interpretation Comments PROTIME (BEAKER) (test code = 13.0 seconds 11.7-14.7 759) INR (BEAKER) (test code = 370) 1.0 <=5.9 RECOMMENDED COUMADIN/WARFARIN INR THERAPY RANGESSTANDARD DOSE: 2.0 - 3.0 Includes: PROPHYLAXIS for venous thrombosis, systemic embolization; TREATMENT for venous thrombosis and/or pulmonary embolus.HIGH RISK: Target INR is 2.5-3.5 for patients with mechanical heart valves.[id number] 19:18:00 Test Item Value Reference Range Interpretation Comments PARTIAL THROMBOPLASTIN TIME 24.0 seconds 22.5-36.0 (BEAKER) (test code = 760) [id number] 12:47:00 Test Item Value Reference Range Interpretation Comments HEMOGLOBIN (BEAKER) (test code = 15.7 GM/DL 13.7-17.5 410) PLATELET [id number] 12:47:00 Test Item Value Reference Range Interpretation Comments PLATELET COUNT (BEAKER) (test 203 K/CU MM 150-450 code = 756) History and Physical Notes Date/Time Note Provider Source 2022-11-28 [id number]:16:45Formatting of this note is IM -INTERNAL [facility] - 21:16:45 different from the original.[facility] MEDICINE Health Admission H&P Date of Service: 3CHIEF ST AFF COMPLAINT: Abdominal painHISTORY OF PRESENT ILLNESSRobert Jarrod Pugh is a 52 year old male [...] ago with an elevated lipase level in [place]. At this time, patient will be admitte d to the hospital for further work-up. Patient with a cute on chronic pancreatitis and will continue with p ain control and gentle hydration. We will keep patie nt n.p.o. at this time as well.PAST MEDICAL HISTORY Past Medical History: Diagnosis Date Aphonia 04/13/2019 Asthma Coronavirus infection 2018 Hx of laryngectomy 07/14/2018 Hyponatremia Leukocytosi s Neck infection 08/11/2018 Other chronic pancreat itis Squamous cell cancer of larynx Thyroid disease Tracheostomy in place PAST SURGICAL HISTORYPast Surgical History: Procedure Laterality Date ENDOSCOPIC RETROGRADE CHOLANGIOPANCRETOGRAPHY N/ A 01/05/2021 Surgeon: Yosef Napier MD; Location: [facility] OR Location ESOPHAGEAL DILATATION N/A 02/11/2020 Surgeon: Fan Espinal MD; Location: [facility] OR Location ESOPHAGOGASTRODUODENOSCOPY N/A 01/20/2020 Surgeo n: Fan Espinal MD; Location: [facility] OR Location ESOPHAGOGASTRODUODENOSCOPY N /A 02/01/2020 Surgeon: Yosef Napier MD; Location[facility] Location ESOPHAGOGASTRODUODENOSCOPY N/A 02/11/2020 Surgeo n: Fan Espinal MD; Location: [facility] OR Location GASTROSTOMY INTRAOPERATIVE CHOLANGIOGRAM N/A 02/15/2020 Surgeon: Cindy Rodriguez MD; Location: [facility] OR Locati on LAPAROSCOPIC CHOLECYSTECTOMY N/A 02/15/2020 Surg dick: Cindy Rodriguez MD; Location: [facility] OR Location TRACHEOSTOMY UPPER ULTRASOUND (SHX) [...] these medications albuterol 90 mcg/actuation inhaler Comments: Sayre son for Stopping: ARIPiprazole 5 mg tablet [...] Activity Alcohol use: Not Currently Comment: 1/ 5th of liqour per week Drug use: Yes Types: Marijuan a Social Determinants of Health Financial Resource Strain: Low Risk (11/13/2022) Overall Financial Resource Strain (CARDIA) Difficulty of Paying Living Expenses: Not hard at all Food Insecurity : No Food Insecurity (11/13/2022) Hunger Vital Sign Worried About Running Out of Food in the Last Ye ar: Never true Ran Out of Food in the Last Year: Nev er true Transportation Needs: No Transportation Nee ds (11/13/2022) PRAPARE - Transportation Lack of Transportation [...] in the Last Year: No REVIEW OF [id number] systems negative ex cept per HPIPHYSICAL EXAMINATIONBP [...] to acute on chronic pancreatitis2. History of squa mous cell carcinoma of the larynx status post [...] jayashree high risk of morbidity and mortality.[place] [employer] w as verified during stayMomontserrat Vilchis MD Electronically signed by Sara Vilchis MD a t 11/29/2022 1:52 AM [id number] and physica l [id number]:52:42History and physical [id number]|1887 5011 22AVAvailable for patient [id number] and physical noteLNIM-INTERNAL MEDICINE STAFFIM-[facility] MEDICINE STAFFUT[address] [id number] MERAZ2023-08-31T01:52:[id number] 5|1. [id number] 2022-11-13 [id number]:44:36Formatting of this note is [facility] - 03:44:36 different from the original.[facility] MEDICINE HISTORY & Health PHYSICALPCP: Hua Date of Service: 11/13/2022 IEF COMPLAINT: abdominal painHistory of Present Iqebtvn37 yo male with PMH of asthma, history of hyponatremia, squamous cell cancer of the larynx , admitted to the hospital as a direct admit from [facility] after he was found to have a lipase level of 824.Past Medical History: Diagno sis Date Aphonia 04/13/2019 Asthma Coronavirus infec tion 2018 Hx of laryngectomy 07/14/2018 Hyponatremia Leukocytosis Neck infection 08/11/2018 Other chr onic pancreatitis Squamous cell cancer of larynx Thyr oid disease Tracheostomy in place Past Surgical Hist ory: Procedure Laterality Date ENDOSCOPIC RETROGRADE CHOLANGIOPANCRETOGRAPHY N/A 01/05/2021 Surgeon: Yosef Napier MD; Location: [facility] OR Location ESOPHAGEAL DILATATION N/A 02/11/2020 Surgeon: Fan Espinal MD; Location[facility] ESOPHAGOGASTRODUODENOSCOPY N/A 01/20/2020 Surgeo n: Fan Espinal MD; Location: [facility] Location ESOPHAGOGASTRODUODENOSCOPY N /A 02/01/2020 Surgeon: Yosef Napier MD; Location: [facility] Location ESOPHAGOGASTRODUODENOSCOPY N/A 02/11/2020 Surgeo n: Fan Espinal MD; Location: [facility] Location GASTROSTOMY INTRAOPERATIVE CHOLANGIOGRAM N/A 02/15/2020 Surgeon: Cindy Rodriguez MD; Location: [facility] Locati on LAPAROSCOPIC CHOLECYSTECTOMY N/A 02/15/2020 Surg dick: Cindy Rodriguez MD; Location: [facility] OR [facility] TRACHEOSTOMY UPPER ULTRASOUND (SHX) N/A 01/29/2020 Surgeon: Brodie Jansen MD; Locat ion: [facility] Location Allergies Allergen Reactions Bactrim [Sulfamethoxazole-Trimethoprim ] Rash Iodine And Iodide Containing Products Nause a Only Penicillins Hives and Rash Other reaction(s ): Unknown - See comments Ampicillin Unknown - See comments Levofloxacin Hives and Rash @HMED@[email or web address] History Socioeconomic History Marital status: Mani reilly Spouse name: Daniel Number of children: 0 Years of education: 16 Highest education level: Some jt ege, no degree Occupational History 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 09 - 3.23 10*3/uL MONO x10^3 0.78 0.36 - 1.02 10*3/uL EOS x10^3 0.11 0.06 - 0.53 10*3/uL BASO x10^3 0.06 0 .01 - 0.09 10*3/uL BASIC METABOLIC PANEL (NA, K, CL, CO2, GLUCOSE, BUN, CREATININE, CA) Collection Ti me: 11/12/22 8:34 PM Result Value Ref Range [...] eGFR 159.8 mL/min/1.73m2 HEPATI C FUNCTION PANEL (61092) (ALB,T.PRO,BILI T,BU/BC,ALT,AST,ALK PHOS) Collection Time: 11/12 8:34 PM Result Value Ref Range TOTAL BILI 0.5 0. 1 - 1.1 mg/dL BILI UNCON 0.3 0.1 - 1.1 mg/dL BILI C ONJ 0.0 0.0 - 0.3 mg/dL T PROTEIN [...] D VT: enoxaparinStress Ulcer: pantoprazoleDr. Radu Treadwell [id number] and physical gieaUE2618-96-47U94:56:00History and physical [id number]|1874 0799 75AVAvailable for patient [id number] and physical noteLNUT[address] Yt[id number] NGAL [id number]:56:001.2.840.154249.1.72.3.1 5|1. 2.8[id number] 2022-11-04 [id number]:53:48Formatting of this note is [facility] - 21:53:48 different from the original.[facility] H&PDate of Service: 3CHIEF COMPLAINT: abdominal pain, nausea/vomiting, diarrheaHistory of Present Mgblrre38 yo male with pmh of asthma, CO [...] Date Aphonia 04/13/19 20 Asthma Coronavirus infection 2018 Hx of laryngec acacia 07/14/2018 Hyponatremia Leukocytosis Neck infect ion 08/11/2018 Other chronic pancreatitis Squamous c ell cancer of larynx Thyroid disease Tracheostomy in place Past Surgical History: Procedure Lateralit y Date ENDOSCOPIC RETROGRADE CHOLANGIOPANCRETOGRAP HY N/A 01/05/2021 Surgeon: Yosef Napier MD; Locati on: [facility] OR Location ESOPHAGEAL DILATATION N/A 02/11/2020 Surgeon: Fan Espinal MD; Location: [facility] OR Location ESOPHAGOGASTRODUODENOSCOPY N/A 01/20/2020 Surgeo n: Fan Espinal MD; Location: [facility] OR Location ESOPHAGOGASTRODUODENOSCOPY N /A 02/01/2020 Surgeon: Yosef Napier MD; Location: [facility] Location ESOPHAGOGASTRODUODENOSCOPY N/A 02/11/2020 Surgeo n: Fan Espinal MD; Location: [facility] OR Location GASTROSTOMY INTRAOPERATIVE CHOLANGIOGRAM N/A 02/15/2020 Surgeon: Cindy Rodriguez MD; Location: [facility] OR Locati on LAPAROSCOPIC CHOLECYSTECTOMY N/A 02/15/2020 Surg dick: Cindy Rodriguez MD; Location: [facility] OR Location TRACHEOSTOMY UPPER ULTRASOUND (SHX) N/A 01/29/2020 Surgeon: Brodie Jansen MD; Locat ion: [facility] Location Family History Proble m Relation Age of Onset Hypertension Father Jesus ry Heart Disease Father 40 PCI 4 stents Breast Canc er Mother ALLERGIESAllergies Allergen Reactions Bactrim [Sulfamethoxazole-Trimethoprim] Rash Iod ine And Iodide Containing Products Nausea Only Penicillins Hives and Rash Other reaction(s): Unknown - See comments Ampicillin Unknown - See comments Levofloxacin Hives and Rash MEDICATIONS No current facility-administered medications on anthony e prior to encounter. Current Outpatient Medicatio ns on File Prior to Encounter Medication Sig Dispen se Refill ESCITALOPRAM OXALATE 20 mg tablet TAKE ON E TABLET BY MOUTH EVERY MORNING 90 tablet 1 albute rol 90 mcg/actuation inhaler Inhale 2 Puffs every 6 (six) hours as needed for Wheezing or Shortness of Breath. 8.5 g 0 CREON 12,000-38,000 -60,000 unit capsule TAKE ONE CAPSULE BY MOUTH EVERY MORNING , ONE CAPSULE AT NOON AND 1 CAPSULE IN THE EVENING WITH MEALS 90 capsule 3 GABAPENTIN 800 mg tablet TAKE ONE TABLET BY MOUTH EVERY MORNING , ONE TAB LET AT NOON AND 1 TABLET IN THE EVENING 90 tablet 1 omeprazole 40 mg capsule Take one capsule by abe th twice daily for one week then one capsule by abe th daily 97 capsule 3 levothyroxine 150 mcg tablet Take 1 tablet by mouth every morning. 90 tablet 1 ARIPiprazole 5 mg tablet Take 1 tablet by mouth in the morning. 90 tablet 1 ketoconazole 2 % shamp oo Apply to area(s) once daily as needed for Itchin g. 120 mL 1 I attest that the foregoing medication list in the medical record is true, accurate and comp lete to the best of my knowledge.SOCIAL HISTORYSocial History Socioeconomic History Marital status: Mani reilly [...] Pharynx: No oropharyngeal exudate. Eyes: General: No sclera l icterus. Extraocular Movements: Extraocular movements intact. Conjunctiva/sclera: [...] Mood normal. Behavior: Behavior normal. Thought Content: Thou ght content normal. Judgment: Judgment normal. LABS - reviewed pertinent labs as below:ReviewedIMAGING - reviewed, pertinent results as below: CT abdomen and pelvis without contrast History: Abdominal pain, acute, nonlocalized Iodine allergy, h/oPancreati tis Technique: CT dose reduction by ALARA principles [...] control-- AM lipid panel-- Will continue wi th Creon2. Asthma: stable-- Will resume albuterol a s needed3. Hypothyroidism-- Will continue with levothyroxine4. Bipolar disease-- Will resume escitalopram, gabapentin, aripiprazole5. GERD:-- will resume omeprazoleProphylaxis: DVT- enoxaparinCode Status: addressed: FCElectronical ly signed by Eli Toney MD at 11/05/2022 3:54 AM [id number] and physical [id number]:54:37History and physical [id number]|1867 6726 13AVAvailable for patient [id number] and physical noteLNUT[address] Do[id number] NGAL [id number]:54:371.2.840.838084.1.72.3.1 5|1. [id number]
--- NOTE | 2023-02-17 20:21 | RAD REPORT ---
EXAM DESCRIPTION: CT - Abdomen Pelvis Wo Contrast - 02/17/2023 8:03 pm CLINICAL HISTORY: Abdominal pain. ABD PAIN COMPARISON: Abdomen Pelvis Wo Contrast dated 02/04/2023; Cholangiogram dated 12/12/2022; Abdomen P henrietta W Contrast dated 12/23/2022; Abdomen Wo Contrast dated 12/31/2022 TECHNIQUE: CT imaging of the abdomen and pelvis was performed without contrast. Solid organ, bowel a nd vascular assessment is limited due to lack of IV and oral contrast. All CT scans are performed using dose optimization technique as appropriate and may include automated exposure control or mA/KV adjustment according to patient size. FINDINGS: The lower lung ritter are clear. Noncontrast assessment of the liver shows no mass or biliary dilatation. Cholecystectomy. Prominence of the pancreatic head again noted with 13 mm low-density collection present. This may be related to previous pancreatitis. This is incompletely assessed on limited noncontrast study. The spleen, adrenal glands and left kidney are within normal limits. Tiny punctate right renal calcul us. Aortoiliac atherosclerosis. No bowel obstruction, free air, free fluid or abscess. Prominent sigmoid diverticulosis coli is seen without diverticulitis. Nonvisualized appendix. Aortoiliac atherosclerosis. The osseous structures are within normal limits. IMPRESSION: No acute intra-abdominal or pelvic findings. Heterogenous appearance of the pancreatic head with vague low-density lesion again noted as detailed. Full assessment not possible on a noncontrast study. This is probably related to pancreatitis. Punctate calculus right kidney. Sigmoid diverticulosis coli without diverticulitis. A limited non-contrast examination was performed as detailed.
[2023-02-17] MEDS ORDERED: ONDANSETRON 4 MG/2 ML VIAL ONE (20:31)
[2023-02-17] MEDS ORDERED: MORPHINE 4 MG/ML SYR ONE (20:31)
[2023-02-17 20:40] LABS: Absolute Lymphocytes (CBC) 0.7 K/uL (0.7-4.9); Hematocrit 51.8 % (39.6-49.0); Lymphocytes % 9.1 % (15.3-44.8); MCV 91.2 fL (80-100); MPV 7.8 fL (7.6-11.3); Platelets 280 thou/uL (152-406); RBC Red Blood Cell Count 5.68 M/uL (4.33-5.43)
[2023-02-17 20:53] LABS: Albumin 3.3 g/dL (3.4-5.0); Bilirubin Total 0.7 mg/dL (0.2-1.0); Potassium 3.6 mEq/L (3.5-5.1); Protein, Total 6.9 g/dL (6.4-8.2)
--- NOTE | 2023-02-17 20:56 | EDPHYS ---
Physician Documentation [facility] Name: Akin Pugh Age: 52 yrs Sex: Male : 1970 Arrival Date: 02/17/2023 Time: 18:26 Bed 16 Private MD: ED Physician Jimi Ayala HPI: 02/18 02:37 This 52 yrs old Male presents to ER via EMS with complaints of Abdominal Pain. sb4 02:37 The patient presents with abdominal pain in the epigastric area. The symptoms do not sb4 radiate. Associated signs and symptoms: Pertinent positives: nausea and vomiting. The symptoms are described as burning. The patient has experienced similar episodes in the past, multiple times, today's symptoms are similar. The patient has been recently been admitted at [facility], was discharged last week. Historical: - Allergies: 02/17 18:52 Levaquin; ap3 18:52 Iodine; ap3 18:52 Iodinated Contrast Media - IV Dye; ap3 18:52 Ampicillin; ap3 - PMHx: 18:52 Asthma; COPD; Pancreatitis; THROAT CA; ap3 - PSHx: 18:52 Laryngectomy; ap3 - Immunization history:: Client reports receiving the 2nd dose of the Covid vaccine. - Social history:: Smoking status: Patient denies any tobacco usage or history of. ROS: 02/18 02:37 Constitutional: Negative for fever, chills, and weight loss, sb4 Abdomen/GI: Positive for abdominal pain, nausea and vomiting, All other systems are negative, Exam: 02:37 Constitutional: This is a well developed, well nourished patient who is awake, alert, sb4 and in no acute distress. Head/Face: Normocephalic, atraumatic. Eyes: Extra-ocular motions intact. Periorbital areas with no swelling, redness, or edema. Cardiovascular: Regular rate and rhythm with a normal S1 and S2. Respiratory: Lungs have equal breath sounds bilaterally, clear to auscultation and percussion. No rales, rhonchi or wheezes noted. No increased work of breathing, no retractions or nasal flaring. MS/ Extremity: Pulses equal, no cyanosis. Neurovascular intact. Full, normal range of motion. Neuro: Awake and alert, GCS 15, oriented to person, place, time, and situation. Motor strength 5/5 in all extremities. Sensory grossly intact. 02:37 Abdomen/GI: Inspection: abdomen appears normal, Bowel sounds: normal, Palpation: soft, moderate abdominal tenderness, in the epigastric area, Vital Signs: 02/17 18:53 BP 123 / 91; Pulse 109; Resp 18; Temp 98.8; Pulse Ox 95% ; Weight 77.11 kg; ap3 18:53 Pain 8/10; ap3 20:50 BP 138 / 85; Pulse 80; Resp 18; Pulse Ox 92% on R/A; kl 21:24 BP 131 / 88; Pulse 81; Resp 18; Pulse Ox 93% on R/A; kl 02/18 00:24 BP 115 / 75; Pulse 72; Resp 20; Pulse Ox 98% on R/A; kl 18:53 Pain Scale: Adult ap3 MDM: 02/17 19:04 Patient medically screened. 4 23:27 Management of patient was discussed with the following: Hospitalist: hospitalist at [address] hospitalist at [facility], both declined, stated no further diagnostic workup is emergently required at this time. 02/18 02:37 Differential diagnosis: cholecystitis, Cholelithiasis, gastritis, gastroesophageal sb4 reflux disease, non-specific abd pain, pancreatitis, Peptic Ulcer Disease. Data reviewed: vital signs, nurses notes, lab test result(s), radiologic studies, I have discussed the patient's presentation/case with the attending Emergency Department Physician; and as a result, I will admit patient. Consideration of Admission/Observation Patient was admitted/placed on observation. Management of patient was discussed with the following: Hospitalist: aurelia BISWAS and dr. porter. Care significantly affected by the following chronic conditions: Chronic Obstructive Pulmonary Disease. Counseling: I had a detailed discussion with the patient and/or guardian regarding the historical points, exam findings, and any diagnostic results supporting the discharge/admit diagnosis, lab results, radiology results, the need for further work-up and treatment in the hospital. 02/17 19:04 Order name: CBC with Diff; Complete Time: 20:48 sb4 02/17 19:04 Order name: CMP; Complete Time: 20:54 sb4 02/17 19:04 Order name: Lipase; Complete Time: 20:54 sb4 02/18 00:15 Order name: Basic Metabolic Panel EDMS 02/18 00:15 Order name: Basic Metabolic Panel EDMS 02/18 00:15 Order name: Basic Metabolic Panel EDMS 02/18 00:15 Order name: Basic Metabolic Panel EDMS 02/18 00:15 Order name: CBC with Automated Diff EDMS 02/18 00:15 Order name: CBC with Automated Diff EDMS 02/18 00:15 Order name: CBC with Automated Diff EDMS 02/18 00:15 Order name: CBC with Automated Diff EDMS 02/18 00:15 Order name: Magnesium EDMS 02/18 00:15 Order name: Magnesium EDMS 02/18 00:15 Order name: Magnesium EDMS 02/18 00:15 Order name: Magnesium EDMS 02/17 19:04 Order name: CT Abd/Pelvis - Without Contrast; Complete Time: 20:28 sb4 02/17 19:04 Order name: IV Saline Lock; Complete Time: 20:18 sb4 02/17 19:04 Order name: Labs collected and sent; Complete Time: 20:18 sb4 Administered Medications: 02/17 20:15 Drug: NS 0.9% IV 1000 ml IV at 1 bolus Per protocol; 1000 mL bolus Route: IV; Rate: 1 kl bolus; Site: left antecubital; 02/18 00:25 Follow up: IV Status: Completed infusion; IV Intake: 1000ml 02/17 20:15 Drug: morphine IVP or IV 4 mg IVP once over 4 mins Route: IVP; Infused Over: 4 mins; kl Site: left antecubital; 20:50 Follow up: Response: No adverse reaction; Marked relief of symptoms 02/18 00:25 Follow up: Response: No adverse reaction 02/17 20:22 Drug: Ondansetron IVP 4 mg IVP once; over 2 minutes Route: IVP; Site: left antecubital; kl 20:50 Follow up: Response: No adverse reaction; Marked relief of symptoms 02/18 00:25 Follow up: Response: No adverse reaction; Marked relief of symptoms 02/17 23:00 Drug: HYDROmorphone IVP 1 mg IVP once Route: IVP; Site: left antecubital; kl 02/18 00:26 Follow up: Response: No adverse reaction; Marked relief of symptoms 02/17 23:05 Drug: metoCLOPramide IVP 10 mg IVP once; over 1 to 2 minutes Route: IVP; Site: left kl antecubital; 02/18 00:25 Follow up: Response: No adverse reaction; Marked relief of symptoms kl Disposition Summary: 02/17/23 20:56 Hospitalization Ordered Notes: Hospitalization Status: Inpatient Admission sb4 Provider: Sara Porter [facility] sb[facility] Condition: Fair sb4 Problem: an acute exacerbation sb4 Symptoms: are unchanged sb4 Bed/Room Type: Standard sb4 Room Assignment: 408(02/18/23 00:17) as6 Diagnosis - acute on chronic pancreatitis sb4 - intractable nausea, vomiting, abdominal pain sb4 Forms: - Medication Reconciliation Form sb4 - SBAR form sb4 - Leadership Thank You Letter sb4 Addendum: 02/19/2023 10:38 I was immediately available for consultation during this patient's visit. I did not e c2 personally see the patient or guide the patient's care. . Signatures: Dispatcher [employer] Bibi Dunn RN RN kl Prokisch, Amanda, RN RN ap3 Slawson, Ashby, RN RN as6 Veronique Uribe, PAFarzanaC PAFarzanaC sb4 Jimi Ayala MD MD ec2 Corrections: (The following items were deleted from the chart) 02/18 00:17 02/17 20:56 sb4 as6
--- NOTE | 2023-02-17 20:56 | ER ---
Nurse's Notes [facility] Name: Akin Pugh Age: 52 yrs Sex: Male : 1970 Arrival Date: 02/17/2023 Time: 18:26 Bed 16 Private MD: Diagnosis: acute on chronic pancreatitis;intractable nausea, vomiting, abdominal pain Presentation: 02/17 18:53 Chief complaint: Patient states: he is having upper abdominal pain that started a few ap3 days ago. Coronavirus screen: At this time, the client does not indicate any symptoms associated with coronavirus-19. Ebola Screen: No symptoms or risks identified at this time. Initial Sepsis Screen: Does the patient meet any 2 criteria? No. Patient's initial sepsis screen is negative. Does the patient have a suspected source of infection? Yes: Acute abdominal pain. Risk Assessment: Do you want to hurt yourself or someone else? Patient reports no desire to harm self or others. Onset of symptoms was February 15, 2023. 18:53 Method Of Arrival: EMS: [facility] ap3 18:53 Acuity: PAO 3 ap3 20:06 Note called patient not in lobby. Triage Assessment: 18:53 General: Appears in no apparent distress. Behavior is calm, cooperative, appropriate ap3 for age. Pain: Complains of pain in right upper quadrant and left upper quadrant Pain currently is 8 out of 10 on a pain scale. Pain began gradually, 2-3 days ago. Neuro: Level of Consciousness is awake, alert, obeys commands, Oriented to person, place, time, situation, Appropriate for age. Cardiovascular: Patient's skin is warm and dry. Respiratory: Airway is patent Respiratory effort is even, unlabored, Respiratory pattern is regular, symmetrical. GI: Reports upper abdominal pain, nausea, vomiting. Historical: - Allergies: 18:52 Levaquin; ap3 18:52 Iodine; ap3 18:52 Iodinated Contrast Media - IV Dye; ap3 18:52 Ampicillin; ap3 - PMHx: 18:52 Asthma; COPD; Pancreatitis; THROAT CA; ap3 - PSHx: 18:52 Laryngectomy; ap3 - Immunization history:: Client reports receiving the 2nd dose of the Covid vaccine. - Social history:: Smoking status: Patient denies any tobacco usage or history of. Screenin:[facility] Fall Risk Assessment (Adult) History of falling in the last 3 months, ap3 including since admission No falls in past 3 months (0 pts). Abuse screen: Denies threats or abuse. Nutritional screening: No deficits noted. Tuberculosis screening: No symptoms or risk factors identified. Assessment: 20:51 Reassessment: Patient appears in no apparent distress at this time. Patient and/or family updated on plan of care and expected duration. Pain level reassessed. Patient is alert, oriented x 3, equal unlabored respirations, skin warm/dry/pink. Patient states symptoms have improved. 02/18 00:27 GI: Bowel sounds present X 4 quads. Abd is soft Abdomen is tender to palpation X 4 kl quads. Vital Signs: 02/17 18:53 BP 123 / 91; Pulse 109; Resp 18; Temp 98.8; Pulse Ox 95% ; Weight 77.11 kg; ap3 18:53 Pain 8/10; ap3 20:50 BP 138 / 85; Pulse 80; Resp 18; Pulse Ox 92% on R/A; kl 21:24 BP 131 / 88; Pulse 81; Resp 18; Pulse Ox 93% on R/A; kl 02/18 00:24 BP 115 / 75; Pulse 72; Resp 20; Pulse Ox 98% on R/A; kl 18:53 Pain Scale: Adult ap3 ED Course: 02/17 18:31 Patient arrived in ED. mr 18:54 Triage completed. ap3 18:54 Arm band placed on right wrist. ap3 19:03 Veronique Uribe [facility]-C [facility] sb4 19:04 Jimi Ayala MD is Attending Physician. sb4 20:05 CT Abd/Pelvis - Without Contrast In Process Unspecified. EDMS 20:18 CBC with Diff Sent. kmf 20:18 CMP Sent. kmf 20:18 Lipase Sent. kmf 20:18 Inserted saline lock: 22 gauge in left antecubital area, using aseptic technique. Blood kmf collected. 20:55 Sara Vilchis MD is Hospitalizing Provider. sb4 22:03 Initiated transfer to [facility], spoke with Chayo. wm 22:45 [facility] denied transfer due to Pt being seen at [facility], told us to try there. wm 22:46 Initiated transfer to [facility], spoke with Khalida. wm 23:13 [facility] denied transfer due to unnecessary need for transfer. 02/18 00:26 No apparent distress. Resting quietly. Appears to be sleeping. 00:26 No provider procedures requiring assistance completed. Patient admitted, IV remains in place. 00:38 Patient has correct armband on for positive identification. Administered Medications: 02/17 20:15 Drug: NS 0.9% IV 1000 ml IV at 1 bolus Per protocol; 1000 mL bolus Route: IV; Rate: 1 kl bolus; Site: left antecubital; 02/18 00:25 Follow up: IV Status: Completed infusion; IV Intake: 1000ml 02/17 20:15 Drug: morphine IVP or IV 4 mg IVP once over 4 mins Route: IVP; Infused Over: 4 mins; Site: left antecubital; 20:50 Follow up: Response: No adverse reaction; Marked relief of symptoms 02/18 00:25 Follow up: Response: No adverse reaction 02/17 20:22 Drug: Ondansetron IVP 4 mg IVP once; over 2 minutes Route: IVP; Site: left antecubital; 20:50 Follow up: Response: No adverse reaction; Marked relief of symptoms 02/18 00:25 Follow up: Response: No adverse reaction; Marked relief of symptoms 02/17 23:00 Drug: HYDROmorphone IVP 1 mg IVP once Route: IVP; Site: left antecubital; 02/18 00:26 Follow up: Response: No adverse reaction; Marked relief of symptoms 02/17 23:05 Drug: metoCLOPramide IVP 10 mg IVP once; over 1 to 2 minutes Route: IVP; Site: left antecubital; 02/18 00:25 Follow up: Response: No adverse reaction; Marked relief of symptoms Medication: 00:38 VIS not applicable for this client. Intake: 00:25 IV: 1000ml; Total: 1000ml. Outcome: 02/17 20:56 Decision to Hospitalize by Provider. sb4 02/18 00:37 Admitted to Tele accompanied by lorri, room 408, Report called to Johnny magdaleno Condition: improved Discharge instructions given to patient, Instructed on the need for admit, Demonstrated understanding of instructions, 00:56 Patient left the ED. Signatures: Dispatcher Med[employer] Bibi Dunn RN JEAN Prescott, Aury, Reg Reg mr AmyRose alarcon, RN RN [email or web address] Fartun Rodrigez Sophia, PA-C PA-C sb4 Koki Britt [facility] Corrections: (The following items were deleted from the chart) 00:10 02/17 23:13 [facility] denied transfer due to wm wm
[2023-02-17] MEDS ORDERED: METOCLOPRAMIDE 10 MG/2mL INJ ONE (23:06)
[2023-02-17] MEDS ORDERED: HYDROMORPHONE HCL 1 MG/ML INJ ONE (23:07)
[2023-02-18] MEDS ORDERED: ACETAMINOPHEN 500 MG TAB PO PRN (00:06)
[2023-02-18] MEDS ORDERED: HYDROCODONE/APAP 5/325 MG TAB PO PRN (00:06)
[2023-02-18] MEDS ORDERED: ONDANSETRON 4 MG/2 ML VIAL IV PRN (00:06)
[2023-02-18] MEDS ORDERED: SODIUM CHLORIDE 0.9% 10ML INJ IV PRN (00:22)
--- NOTE | 2023-02-18 00:22 | P.PN ---
Date of Service: 02/18/23 On review of chart it was noted that our GI specialist and discharging hospitalist physician recommended that patient should be transferred to a tertiary care facility to assist in diagnosing the cause of patient's pancreatitis. We will not have GI available to assit us in the patient's care this week, nor do we have a pancreatic specialist. I requested that the emergency room transfer the patient to a facility that has at least GI available since our GI specialist was recommending transferring to a tertiary care facility to help figure out patient's cause of acute pancreatitis which will eventually result in chronic pancreatitis and severe morbidity and possible mortality if patient is not diagnosed appropriately. He does have what appears to be at minimal be numerous pseudocyst at the pancreatic head. This could possibly be causing obstruction. What is causing these cystic lesions is unknown. Patient could have numerous etiologies that can be the cause of his pancreatitis including autoimmune pancreatitis, genetic abnormalities, but unfortunately it will be much more difficult in diagnosing his cause without the patient being under the care of appropriate specialists. Pt would benefit from transfer from the ER.
--- NOTE | 2023-02-18 00:33 | P.HP ---
Certification for Inpatient Patient admitted to: Observation With expected LOS: <2 Midnights Patient will require the following post-hospital care: None Practitioner: I am a practitioner with admitting privileges, knowledge of patient current condition, hospital course, and medical plan of care. Services: Services provided to patient in accordance with Admission requirements found in Title 42 Section 412.3 of the Code of Federal Regulations Patient History Date of Service: 02/18/23 Reason for admission: Acute on chronic pancreatitis History of Present Illness: Mr. Pugh a 52-year-old male patient with primary history of asthma, COPD, pancreatitis, hypothyroid thyroid, depression, chronic pain throat cancer presented to the emergency room with worsening abdominal pain. Patient has a history of chronic pancreatitis. Started having abdominal pain for the last 3 days which was worsening progressively and was brought to ER. This is typical of his acute pancreatitis episodes. Could not tolerate a diet associated with nausea and vomiting. Denies any fever or chills. No chest pain or shortness of breath. Pain is located in the upper abdomen but radiates to the back, sharp in quality, 8 out of 10 in severity. Patient already had received morphine in the ER . ED course: Initial vital signs are stable, pain 8 out of 10, patient received IV fluid NS 1 L bolus. Initial laboratory reports are unremarkable. Patient was assessed in the ER and was found to have acute on chronic pancreatitis and was admitted for further management for pain control and management of pancreatitis . Allergies levofloxacin [From Levaquin] Allergy (Severe, Verified 02/05/23 01:24) Itching/Hives/Rash ampicillin Allergy (Verified 02/05/23 01:24) Itching/Hives/Rash iodine Allergy (Verified 02/05/23 01:24) Hives/Rash Home Medications: Escitalopram [Lexapro*] 20 mg PO DAILY #30 tab 02/16/21 Gabapentin [Neurontin*] 800 mg PO TID 12/11/22 Lipase/Protease/Amylase [Chucho Falcon 12,000 Units Capsule] 1 tab PO TID 12/11/22 Levothyroxine [Synthroid*] 150 mcg PO [id number] 12/31/22 Pantoprazole Sodium [Protonix] 40 mg PO BID 30 Days #60 tab 01/02/23 Oxycodone HCl 10 mg PO Q6HP PRN 02/05/23 - Past Medical/Surgical History Diabetic: No -: Asthma -: Depression -: Throat cancer status post complete laryngectomy/reconstruction 06/2018 -: Recurrent postop infection -: Chronic pain -: Former tobacco use -: Surgical hypothyroidism -: neuropathy -: Pancreatitis/duodenitis -: Tracheostomy -: Appendectomy -: Complete laryngectomy with reconstruction -: knee surgery bilateral knees -: Thyroidectomy Psychosocial/ Personal History: Patient is . He has 3 children. - Family History Father -: Heart disease, Diabetes Notes: agent orange: immobile Mother -: Cancer Notes: breast ca - Social History Smoking Status: Former smoker Alcohol use: No CD- Drugs: No Caffeine use: Yes Review of Systems 10-point ROS is otherwise unremarkable Physical Examination - Physical Exam General: Alert, Oriented x3 HEENT: Atraumatic, Normocephalic Neck: Supple, 2+ carotid pulse no bruit Respiratory: Clear to auscultation bilaterally, Normal air movement, Other (Old tracheostomy follow,) Cardiovascular: No edema, Normal pulses, Regular rate/rhythm, Normal S1 S2 Capillary refill: <2 Seconds Gastrointestinal: Normal bowel sounds, Soft and benign, Other (Abdominal pain,diffuse) Musculoskeletal: No clubbing, No swelling Integumentary: No rashes, No breakdown Neurological: Normal speech, Normal tone, Normal affect - Studies Laboratory Data (last 24 hrs) 02/17/23 02/17/23 20:15 20:15 WBC 7.70 Hgb 17.7 Hct 51.8 H Plt Count 280 Sodium 134 L Potassium 3.6 BUN 4 L Creatinine 0.64 L Glucose 111 H Total Bilirubin 0.7 AST 16 ALT 25 Alkaline Phosphatase 138 H Lipase 199 H Assessment and Plan - Problems (Diagnosis) (1) Pancreatitis, chronic Current Visit: Yes Status: Acute (2) Abdominal pain Current Visit: Yes Status: Acute (3) Depression Current Visit: Yes Status: Acute (4) Hypothyroid Current Visit: Yes Status: Acute (5) Chronic abdominal pain Current Visit: Yes Status: Acute - Plan (1) Pancreatitis, chronic (2) Abdominal pain,(3) Chronic abdominal pain * Patient came in with increasing abdominal pain for last 3 days, initial labs are unremarkable * Admitting the patient for management of pancreatitis, IV fluid, analgesics and an antiemetic * patient was discharged almost a week ago with the recommendation to see a pancreatic specialist in a tertiary care hospital. Patient was seen by GI doctor on the last admission who also recommended tertiary care evaluation. The ER doctor attempted to transfer the patient to [facility] and [facility] but both were declined saying that patient need outpatient work-up. (4) Depression * Chronic controlled on Lexapro at home * We will reconcile and resume the medication (5) Hypothyroid * Chronic, controlled on levothyroxine 125 mics p.o. daily at home * We will reconcile the medication resume Discharge Plan: Home Plan to discharge in: 24 Hours - Advance Directives Does patient have a Living Will: No Does patient have a Durable POA for Healthcare: No - Code Status/Comfort Care Code Status Assessed: Yes (full code) Code Status: Full Code Physician Review: Patient Assessed, Agree with Above Assessment and Plan Critical Care: No Time Spent Managing Pts Care (In Minutes): 55 (minutes)
[2023-02-18] MEDS ORDERED: NA CHLORIDE 0.9% 1,000 ML IV SCH (01:00)
[2023-02-18] MEDS: NA CHLORIDE 0.9% 1,000 ML IV SCH ×3 (01:10→14:20)
[2023-02-18 02:44] VITALS: BMI 23.7
[2023-02-18] MEDS ORDERED: ALBUTEROL 2.5 MG/3 ML NEB SOL ONE (03:08)
[2023-02-18] MEDS ORDERED: IPRATROPIUM BROM 0.5MG/2.5ML ONE (03:08)
[2023-02-18] MEDS: MORPHINE 2 MG/ML SYR IV PRN ×5 (03:25→20:04)
[2023-02-18 06:26] LABS: C-Reactive Protein 4.14 mg/L (<3.00); Phosphorus 3.3 mg/dL (2.5-4.9)
[2023-02-18] MEDS: PANTOPRAZOLE 40 MG INJ IVP SCH (09:34)
[2023-02-18] MEDS: ENOXAPARIN 40 MG/0.4 ML SQ SCH (09:34)
--- NOTE | 2023-02-18 09:53 | P.PN ---
Subjective Date of Service: 02/18/23 Chief Complaint: Acute on chronic pancreatitis Subjective: No new changes, Improving Physical Examination - Vital Signs Temperature: 98.1 F Blood Pressure: 124/77 Pulse: 79 Respirations: 16 Pulse Ox (%): 93 - Physical Exam General: Alert, Oriented x3 HEENT: Atraumatic Neck: Supple Respiratory: Normal air movement Cardiovascular: Regular rate/rhythm, Normal S1 S2 Gastrointestinal: Soft and benign - Studies Laboratory Data (last 24 hrs) 02/17/23 02/17/23 20:15 20:15 WBC 7.70 Hgb 17.7 Hct 51.8 H Plt Count 280 Sodium 134 L Potassium 3.6 BUN 4 L Creatinine 0.64 L Glucose 111 H Total Bilirubin 0.7 AST 16 ALT 25 Alkaline Phosphatase 138 H Lipase 199 H Assessment And Plan - Plan Assessment and Plan - Problems (Diagnosis) (1) Pancreatitis, chronic Current Visit: Yes Status: Acute (2) Abdominal pain Current Visit: Yes Status: Acute (3) Depression Current Visit: Yes Status: Acute (4) Hypothyroid Current Visit: Yes Status: Acute (5) Chronic abdominal pain Current Visit: Yes Status: Acute - Plan (1) Pancreatitis, chronic (2) Abdominal pain,(3) Chronic abdominal pain * Continues to have abdominal pain though this is slightly improved. Continue diet as tolerated. Continue pain control and adjust to achieve adequate relief. We will follow clinical symptomatology and trend of lipase. (4) Depression * Chronic controlled on Lexapro at home * We will reconcile and resume the medication (5) Hypothyroid * Chronic, controlled on levothyroxine 125 mics p.o. daily at home * We will reconcile the medication resume Discharge Plan: Home Plan to discharge in: 24 Hours - Advance Directives Does patient have a Living Will: No Does patient have a Durable POA for Healthcare: No - Code Status/Comfort Care Code Status Assessed: Yes (full code) Code Status: Full Code Physician Review: Patient Assessed, Agree with Above Assessment and Plan Critical Care: No Time Spent Managing Pts Care (In Minutes): 30 (minutes) Physician Review: Patient Assessed, Agree with Above Assessment and Plan
[2023-02-18] MEDS ORDERED: LORazepam 2 MG/ML VIAL IV ONE (14:45)
--- NOTE | 2023-02-18 14:58 | RAD REPORT ---
EXAM DESCRIPTION: MRI - Mri Abdomen W/Wo Cont - 02/18/2023 2:40 pm CLINICAL HISTORY: idiopathic pancreatitis Abdominal pain COMPARISON: Cholangiogram dated 12/12/2022; Cholangiogram dated 09/13/2020; Abdomen Pelvis Wo Contra st dated 02/17/2023 FINDINGS: The examination is mildly motion degraded. No gross liver lesion or biliary dilatation. The spleen is mildly enlarged in size. Pancreas contains several T2 hyperintense lesions in the pancreatic head and uncinate process the lar gest measuring 23 mm. The pancreatic head appears enlarged and heterogenous. No pathologic pancreatic ductal dilatation. Both adrenal glands and both kidneys show no mass. No bulky lymphadenopathy in the abdomen. IMPRESSION: Examination is moderately motion degraded. Several T2 hyperintense lesions are seen in the pancreatic head which is enlarged heterogenous, witho ut enhancement. These may represent small pseudocysts related to previous pancreatitis.
[2023-02-18] MEDS: Ringers Lactate 1,000 ML IV SCH (16:02)
[2023-02-19] MEDS: MORPHINE 2 MG/ML SYR IV PRN ×4 (00:17→13:31)
[2023-02-19] MEDS: Ringers Lactate 1,000 ML IV SCH ×2 (00:20→08:00)
[2023-02-19 07:20] LABS: Absolute Lymphocytes (CBC) 0.6 K/uL (0.7-4.9); Lymphocytes % 12.2 % (15.3-44.8); MCV 91.1 fL (80-100); MPV 7.8 fL (7.6-11.3); Platelets 195 thou/uL (152-406); RBC Red Blood Cell Count 4.94 M/uL (4.33-5.43)
[2023-02-19 07:27] LABS: Magnesium 1.9 mg/dL (1.6-2.4); Potassium 3.5 mEq/L (3.5-5.1)
[2023-02-19 08:55] VITALS: O2SAT 94
[2023-02-19] MEDS: ENOXAPARIN 40 MG/0.4 ML SQ SCH (09:45)
[2023-02-19] MEDS: PANTOPRAZOLE 40 MG INJ IVP SCH (09:45)
[2023-02-19 10:10] VITALS: BP 128/82; TEMP 98.1
--- NOTE | 2023-02-19 15:25 | P.DS ---
Admission Date: 02/18/23 Discharge Date: 02/19/23 Disposition: ROUTINE DISCHARGE Discharge Condition: GOOD Reason for Admission: Acute on chronic pancreatitis Brief History of Present Illness: Mr. Pugh a 52-year-old male patient with primary history of asthma, COPD, pancreatitis, hypothyroid thyroid, depression, chronic pain throat cancer presented to the emergency room with worsening abdominal pain. Patient has a history of chronic pancreatitis. Started having abdominal pain for the last 3 days which was worsening progressively and was brought to ER. This is typical of his acute pancreatitis episodes. Could not tolerate a diet associated with nausea and vomiting. Denies any fever or chills. No chest pain or shortness of breath. Pain is located in the upper abdomen but radiates to the back, sharp in quality, 8 out of 10 in severity. Patient already had received morphine in the ER . ED course: Initial vital signs are stable, pain 8 out of 10, patient received IV fluid NS 1 L bolus. Initial laboratory reports are unremarkable. Patient was assessed in the ER and was found to have acute on chronic pancreatitis and was admitted for further management for pain control and management of pancreatitis . Hospital Course: Patient was placed on n.p.o. and started on IV fluid. Lactated Ringer solution was used and pain control was started. He responded well to management and his abdominal pain improved significantly. He was interested in oral feeds and he was started on a clear liquid and was transitioned to solid diet without any significant abnormality. He is stable for discharge to continue with food as tolerated and follow-up with outpatient agriculture intern for management of his chronic pancreatitis. Vital Signs/Physical Exam: Temp Pulse Resp BP Pulse Ox 98.1 F 65 16 128/82 93 02/19/23 08:00 02/19/23 08:00 02/19/23 08:00 02/19/23 08:00 02/19/23 08:00 General: Alert, Oriented x3 HEENT: Atraumatic, Normocephalic Neck: Supple Respiratory: Normal air movement Cardiovascular: Regular rate/rhythm, Normal S1 S2 Gastrointestinal: Soft and benign Musculoskeletal: No swelling Neurological: Normal speech Laboratory Data at Discharge: WBC 5.30 thou/uL (4.3-10.9) 02/19/23 06:40 Hgb 15.4 g/dL (13.6-17.9) 02/19/23 06:40 Hct 45.0 % (39.6-49.0) 02/19/23 06:40 Plt Count 195 thou/uL (152-406) 02/19/23 06:40 Sodium 137 mEq/L (136-145) 02/19/23 06:40 Potassium 3.5 mEq/L (3.5-5.1) 02/19/23 06:40 BUN 5 mg/dL (7-18) L 02/19/23 06:40 Creatinine 0.50 mg/dL (0.70-1.30) L 02/19/23 06:40 Glucose 86 mg/dL (74-106) 02/19/23 06:40 Phosphorus 3.3 mg/dL (2.5-4.9) 02/18/23 05:39 Magnesium 1.9 mg/dL (1.6-2.4) 02/19/23 06:40 Total Bilirubin 0.7 mg/dL (0.2-1.0) 02/17/23 20:15 AST 16 U/L (15-37) 02/17/23 20:15 ALT 25 U/L (16-61) 02/17/23 20:15 Alkaline Phosphatase 138 U/L (45-117) H 02/17/23 20:15 Lipase Cancelled 02/18/23 06:00 Home Medications: Escitalopram [Lexapro*] 20 mg PO DAILY #30 tab 02/16/21 Gabapentin [Neurontin*] 800 mg PO TID 12/11/22 Lipase/Protease/Amylase [Chucho Falcon 12,000 Units Capsule] 1 tab PO TID 12/11/22 Levothyroxine [Synthroid*] 150 mcg PO [id number] 12/31/22 Pantoprazole Sodium [Protonix] 40 mg PO BID 30 Days #60 tab 01/02/23 Oxycodone HCl 10 mg PO Q6HP PRN 02/05/23 Diet: Regular Activity: Ad get
== END 2023-02-19 17:11 | disposition home or self-care (01) ==
LOC: ER 18:26 → 4TH 02-18 00:04
PROVIDERS: ADMIT Hospitalist; ATTEND Internal Medicine Nephrology
DX: K85.90 Acute pancreatitis without necrosis or infection, unspecified (principal); J45.909 Unspecified asthma, uncomplicated; J44.9 Chronic obstructive pulmonary disease, unspecified; E03.9 Hypothyroidism, unspecified; F32.A Depression, unspecified; C14.0 Malignant neoplasm of pharynx, unspecified; F17.210 Nicotine dependence, cigarettes, uncomplicated; R10.9 Unspecified abdominal pain; G89.29 Other chronic pain; Z88.1 Allergy status to other antibiotic agents; Z91.09 Other allergy status, other than to drugs and biological substances; Z88.8 Allergy status to other drugs, medicaments and biological substances; Z79.890 Hormone replacement therapy
CPT/HCPCS: 96361; 85025 ×2; 80048 ×2; 36415 ×3; 83735 ×2; 84100; 83690 ×2; 80053; 86301; 86140; 74176; 74183; 94640; 96375; 96374; 99285; A9577; J2765; J7613; J7644; C9113 ×2; J1650 ×2; J2270 ×9; J1170; J2405; J7120 ×3; J7030 ×2; G0378 ×3

== ENCOUNTER 2023-03-02 17:41 | Inpatient (IN) | payer OTHER ==
--- OUTSIDE RECORDS SUMMARY | 2023-03-02 17:55 | XMS REPORT | Continuity of Care Document ---
:1970 Author Organization [facility] t Address [address] [facility] [address] [place] [address] Care Team Providers Name Role Phone No, Pcp [facility] Primary Care Physician Unavailable BRODIE JANSEN Attending Clinician Unavailable MICHELLE JUSTICE Attending Clinician Unavailable LUCY MEANS Attending Clinician Unavailable LUCY MEANS Attending Clinician Unavailable ROSS GUNTER Attending Clinician Unavailable ROSS GUNTER Attending Clinician Unavailable Lab, Ang - Db Attending Clinician Unavailable Michelle Brothers Attending Clinician Doctor Unassigned, Amesti Attending Clinician Unavailable Anderson Francisco RN Attending Clinician Unavailable DERIC SANTOS Attending Clinician Unavailable Tez Moore Attending Clinician Deric Santos DO Attending Clinician JAIRO MARIN Attending Clinician Unavailable Jairo Marin DO Attending Clinician Jenniffer Olivier RN Attending Clinician Unavailable JOE TREADWELL Attending Clinician Unavailable Markell [place], Regis Attending Clinician Joe Treadwell MD Attending Clinician Caprice Hodge MD Attending Clinician Lucy Shaffer MD Attending Clinician Jh Carroll LVN Attending Clinician Unavailable Unknown, Attending Attending Clinician Unavailable UNKNOWN, ATTENDING Attending Clinician Unavailable CHETNA BARNARD Attending Clinician Unavailable Evon [place], Chetna Attending Clinician BLAIR GALINDO Attending Clinician Unavailable BLAIR GALINDO Attending Clinician Unavailable HORTENSIA SHANKS Attending Clinician Unavailable Yuliana INMAN, Pam Valiente Attending Clinician LUCY SHAFFER Attending Clinician Unavailable Taras US Attending Clinician Unavailable Taras Mckeon Attending Clinician MAURIZIO DESAI Attending Clinician Unavailable SADIQ NAPIER Attending Clinician Unavailable Emery PENA, Sayra Duncan Attending Clinician Unavailable CHIDI KRISHNAN Attending Clinician Unavailable Lennox Crystal MD Attending Clinician Chidi Krishnan MD Attending Clinician GIRISH HANEY Attending Clinician Unavailable Urszula Baeza MD Attending Clinician Girish Haney MD Attending Clinician [facility] Attending Clinician Yefri Claudio MD Attending Clinician Shelby Coronel Attending Clinician Sadiq Napier MD Attending Clinician Debra Pearce RN Attending Clinician PAM BRIDGES Attending Clinician Unavailable CATALINA COSTA Attending Clinician Unavailable Catalina Costa DO Attending Clinician Anupama SAMANIEGOP, Malcolm B Attending Clinician MALCOLM ALTMAN Attending Clinician Unavailable Pob, [facility] Main Attending Clinician Unavailable Jez ADMINISTRATOR PESTICIDE, Mike Attending Clinician MIKE STORY Attending Clinician Unavailable Zack INMAN, Nyla Nguyen Attending Clinician [phone] Adri ALBARRAN, Kary Ruiz Attending Clinician KARISHMA TENA Attending Clinician Unavailable CIDNY RODRIGUEZ Attending Clinician Unavailable Tequila INMAN, Cindy Attending Clinician ALEXIS DAVENPORT Attending Clinician Unavailable Tamiko PENA, Keya Attending Clinician Lab, Adc Fam Pob I Attending Clinician Unavailable Machelle INMAN, Dangelo Antoine Attending Clinician Dawna INMAN, Eli Attending Clinician Jeaneth INMAN, Yefri Correia Attending Clinician Chon INMAN, Sandra Escalante Attending Clinician Ethel INMAN, Alexis Mcrae Attending Clinician Kamille Varma CRNA Attending Clinician Trevor INAMN, Preston Anna Attending Clinician Jaquelin ADMINISTRATOR PESTICIDE, Eligio Meyer Attending Clinician Kaela ADMINISTRATOR PESTICIDE, Lizet Ruiz Attending Clinician Jet INMAN, Maurice Attending Clinician Provider, [facility] Attending Clinician Unavailable Caterina SANTOS, Rosa Arndt Attending Clinician Unavailable Apolinar GONZALEZ, Nidhi Duncan Attending Clinician NIDHI JIANG Attending Clinician Unavailable Sami INMAN, Maurizio Attending Clinician LEXIE DRAKE Attending Clinician Unavailable Yuniel INMAN, Lexie Whiteside Attending Clinician Sharon INMAN, [...] Policy Number Effective Date Expiration Date [facility] [id number] 2018 MEDICAID 00:00:00 [facility] MEDICARE [id number] 2020 00:00:00 MEDICARE PART A \\T\\ [id number] 2019 B 00:00:00 MEDICAID OF [place] [id number] Problems Condition Condition Condition Status Onset Resolution Last Treating Co mments Source Name Details Category Date Date Treatment Clinician Date Calculus Calculus Disease Active Unive rs of right of right 12-18 ity of kidney kidney 00:00: [address] Elevated Elevated Disease Active Unive rs liver liver 12-18 ity of function function 00:00: [place] tests tests [address] [place] [address] Current Current Disease Active Univers every day every day 12-18 ity of smoker smoker 00:00: [place] 00 Medical Branch Abdominal Abdominal Disease Active Uni vers pain, pain, 8-06 ity of unspecifie unspecif[place] 00 Medical abdominal abdominal Bran ch location location Obesity Obesity Disease Active Univers (BMI (BMI 8-06 ity of 30-39.9) 30-39.9) 00:00: [place] 00 Medical Branch Low libido Low libido Disease Active U nivers 6-05 ity of 00:00: [place] [facility] Need for Need for Disease Active Unive rs vaccinatio vaccinatio 6-05 it y of n n 00:00: [place] [facility] Other Other Disease Active Univers seborrheic seborrheic 11-27 it y of dermatitis dermatitis [place] [facility] [place] Acquired Acquired Disease Active Unive rs hypothyroi hypothyroi 11-27 it y of dism dism 00:00: [place] [facility] Neuropathy Neuropathy Disease Active U nivers involving involving 8 ity of both lower both lower 00:00[place] extremit[place] 00 Me dical s s Branch Esophagiti Esophagiti Disease Active U nivers s s 11-27 ity of 00:00: [place] [facility] Chronic Chronic Disease Active Univers obstructiv obstructiv 11-27 it y of e e 00:00: [place] pulmonary pulmonary 00 Medi julieta disease, disease, Branch unspecifie unspecifie d COPD d COPD type type Anxiety Anxiety Disease Active Univers and and 8 ity of depression depression 00:00: [place] [facility] [place] Encounter Encounter Disease Active Uni vers to to 8 ity of establish establish 00:[place] Cellulitis Cellulitis Disease Active 2020-04 U nivers 1-07 ity of 00:00: [place] [facility] 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 Added automatic ally from request for surgery [id number] Acute Acute Disease Active 2019-04 Univers pancreatit pancreatit 0-30 it y of is is 00:00: [place] 00 Medical Branch Epigastric Epigastric Disease Active 2019-04 Overview : Univers pain pain 0-29 Formattin ity of 00:00: g of this [place] 00 note Medical might be Branch different from the original. Added automatic ally from request for surgery [id number] Dysphagia, Dysphagia, Disease Active 2019-04 Overview : Univers unspecifie unspecifie 0-29 Formattin ity of d type d type 00:00: g of this [place] 00 note Medical might be Branch different from the original. Added automatic ally from request for surgery [id number] Pancreatit Pancreatit Disease Active 2019-04 U nivers is is 0-07 ity of 00:00: [place] 00 Medical Branch Dehydratio Dehydratio Disease Active 2020- U nivers n n 0-06 ity of 00:00: [place] [facility] Aphonia Aphonia Disease Active 2020-0 Univers 1-13 ity of 00:00: [place] [address] Medical Branch Neck Neck Disease Active 2019- [...] laryngecto 4-16 Emily kes my my 00:00: [facility] 00 Center S/P S/P Disease Active 2019- [facility] percutaneo percutaneo 4-16 Emily kes us us 00:00: Medical endoscopic endoscopic 00 Ce nter gastrostom gastrostom y (PEG) y (PEG) tube tube placement placement Tracheosto Tracheosto Disease Recurre 2019- [facility] Center History of History of Disease Recurre [facility]- [facility] laryngeal laryngeal nce 4-11 Luke [...] Problem Active Com mon cancer cancer [facility] Tracheosto Tracheosto Problem Active C mary my care my care [facility] Chronic Chronic Problem Active Common obstructiv obstructiv Sp amada e e - [facility] pulmonary [facility] disease, disease, [facility] unspecifie unspecifie Me dical d COPD d COPD Center type type Seasonal Seasonal Problem Active Commo n allergies allergies Spir it - [facility] GERD GERD Problem Active Common without without Spirit esophagiti esophagiti - [facility] s s [facility] Essential Essential Problem Active Com mon (primary) (primary) Spir it hypertensi hypertensi - [facility] on on [facility] Polyneurop Polyneurop Problem Active Arash hernandez athy in athy in Spirit diseases diseases - [facility] classified classified [facility] Postablati Postablati Problem Active C ommon ve ve Spirit hypothyroi hypothyroi - [facility] dism dism [facility] Malignant Malignant Problem Active Com mon (primary) (primary) Spir it neoplasm, neoplasm, - CH I unspecifie unspecifie [facility] Reactive Reactive Problem Active Commo n depression depression Sp amada - [facility] Allergies, Adverse Reactions, Alerts Allergy Allergy Status Severity Reaction(s) Onset Inactive Treating Comm ents Source Name Type Date Date Clinician Sulfamet Propensi Active Rash 2020-04 Univer s hoxazole ty to 04-07 ity of -Trimeth adverse 00:00: [place] oprim reaction 00 Medical s to Branch drug SULFAMET DRUG [...] [place] CONTAINI 00 Medical NG Branch PRODUCTS Ampicill Propensi Active Unknown - Uni vers in ty to See comments 5-13 ity of adverse 00:00: [place] reaction 00 Medical s Branch AMPICILL DRUG Active Unknown-Cmnt 2019-0 Un maddie IN INGREDI 5-13 ity of 00:00: [place] 00 [facility] Branch Ampicill Propensi Active Hives, Rash 2019-0 [...] INS Class 4-11 ity of 00:00: [place] [facility] LEVOFLOX DRUG Active Low Hives 2019-0 Univers ACIN INGREDI 4-11 ity of 00:00: [address] Iodine Adverse Active vomiting Common Reaction Spirit - [facility] Social History Social Habit Start Date Stop Date Quantity Comments Source History of tobacco Cigarette Smoker University of use [facility] Gender identity Universit y of [facility] Sexual orientation [facility] History SDOH [facility] Alcohol Std Drinks Medica [facility] History SDOH [facility] Alcohol Binge Medical Ant ter Tobacco use and 2022-11-13 2022-11-13 Smokeless tobacco Un iversity of exposure 00:00:00 00:00:00 non-user [facility] Exposure to 2022-08-18 2022-08-28 Not sure University SARS-CoV-2 (event) 00:00:00 15:38:00 [facility] History of Social 2022-08-28 2022-08-28 Univers ity of function 00:00:00 00:00:00 [facility] Alcohol Comment 2020-08-22 2020-08-2204/05 of liqour per University of 00:00:00 00:00:00 week [facility] Education - What 2020-01-29 2020-01-29 Some college, no Un iversity of is the highest 00:00:00 00:00:00 degree [facility] [place] level of school Branch you have completed or the highest degree you have received? History [facility] 2020-01-29 2020-01-29 5 University o f Financial 00:00:00 00:00:00 [place] [facility] History SDOH Food 2020-01-29 2020-01-29 1 Univers ity of Worry 00:00:00 00:00:00 [place] [facility] History SDMI Food 2020-01-29 2020-01-29 1 Univers ity of Scarcity 00:00:00 00:00:00 [place] [facility] History [facility] 2020-01-29 2020-01-29 2 University o f Transport Med 00:00:00 00:00:00 [place] Medic al Branch History [facility] 2020-01-29 2020-01-29 2 [place] o f Transport Non-Med 00:00:00 00:00:00 [place] M edical Branch Alcohol intake 2018-07-15 2018-07-15 Current non-drinker [facility] of alcohol [facility] (finding) Tobacco Comment 2018-06-06 2018-06-[address] [facility] 00:00:00 00:00:00 Medical Center History [facility] 2018-06-06 2018-06-[address] [facility] Alcohol Frequency 00:00:00 00:00:00 Medical Center - How often do you have a drink containing alcohol? Sex Assigned At [address] [facility]es 00:00:00 00:00:00 Medical Center Smoking Status Start Date Stop Date Source Occasional tobacco 2022-11-13 00:00:00 [facility] smoker Medical Branch Ex-smoker 2021-11-27 00:00:00 2021-11-[address] [place] [address] [facility] 00:00:00 Medical Branch Medications Ordered Filled Start Stop Current Ordering Indication Dosage Frequency Signature Comments Components Source Medication Medication Date Date Medication? Clinician (SIG) Name Name lactated Yes 1000mL at 100 Unive rs ringers IV 9-01 mL/hr, ity of infusion 00:00[place] 1[place]000 [place] 1[place] 00 IV Medical Infusion, Branch CONTINUOUS , Starting on Patricia 8/31/23 at 1900, Until Discontinu ed, Routine ondansetron 2023-0 3- No [id number] 4mg Take 1 Univers 4 mg 9-01 10-02 tablet by ity of disintegrat 00:00: 04:59 [place] tablet 00 :00 every 8 Medica l (eight) Branch hours as needed for Nausea and Vomiting (N/V) for up to 30 days. ondansetron 2023-0 3- No [id number] 4mg Take 1 Univers 4 mg 9- 10-02 tablet by ity of disintegrat 00:00: 04:59 [place] tablet 00 :00 every 8 Medica l (eight) Branch hours as needed for Nausea and Vomiting (N/V) for up to 30 days. ondansetron 3-0 3- No [id number] 4mg Take 1 Univers 4 mg 9- 10-02 tablet by ity of disintegrat 00:00: 04:59 [place] tablet 00 :00 every 8 Medica l (eight) Branch hours as needed for Nausea and Vomiting (N/V) for up to 30 days. ondansetron 3-0 3- No [id number] 4mg Take 1 Univers 4 mg 9- 10-02 tablet by ity of disintegrat 00:00: 04:59 [place] tablet 00 :00 every 8 Medica l (eight) Branch hours as needed for Nausea and Vomiting (N/V) for up to 30 days. ondansetron 3-0 3- No [id number] 4mg Take 1 Univers 4 mg 9- 10-02 tablet by ity of disintegrat 00:00: 04:59 [place] tablet 00 :00 every 8 Medica l (eight) Branch hours as needed for Nausea and Vomiting (N/V) for up to 30 days. ondansetron 2023-0 3- No [id number] 4mg Take 1 Univers 4 mg 9-01 10-02 tablet by ity of disintegrat 00:00: 04:59 [place] tablet 00 :00 every 8 Medica l (eight) Branch hours as needed for Nausea and Vomiting (N/V) for up to 30 days. ondansetron 2023-0 3- No [id number] 4mg Take 1 Univers 4 mg 9-01 10-02 tablet by ity of disintegrat 00:00: 04:59 [place] tablet 00 :00 every 8 Medica l (eight) Branch hours as needed for Nausea and Vomiting (N/V) for up to 30 days. ondansetron 3-0 3- No [id number] 4mg Take 1 Univers 4 mg 9- 10-02 tablet by ity of disintegrat 00:00: 04:59 [place] tablet 00 :00 every 8 Medica l (eight) Branch hours as needed for Nausea and Vomiting (N/V) for up to 30 days. ondansetron 2022-0 3- No [id number] 4mg Take 1 Univers 4 mg 9- 10- tablet by ity of disintegrat 00:00: 04:59 [place] tablet 00 :00 every 8 Medica l (eight) Branch hours as needed for Nausea and Vomiting (N/V) for up to 30 days. ondansetron 2022-0 3- No [id number] 4mg Take 1 Univers 4 mg 9- 10- tablet by ity of disintegrat 00:00: 04:59 [place] tablet 00 :00 every 8 Medica l (eight) Branch hours as needed for Nausea and Vomiting (N/V) for up to 30 days. ondansetron 2022-0 2022- No [id number] 4mg Take 1 Univers 4 mg - 10- tablet by ity of disintegrat 00:00: 04:59 [place] tablet 00 :00 every 8 Medica l (eight) Branch hours as needed for Nausea and Vomiting (N/V) for up to 30 days. HYDROcodone 2022-2022- No [id number] 1{tbl} Take 1 [...] at 0730, Routine, Pain (scale 7-10) omeprazole 2022- Yes 40mg 40 mg, Unive rs (PRILOSEC) 11-29 Oral, ity of capsule 40 14:00: DAILY, [place] mg 00 First dose Medical on [facility] Branch 11/29/22 at 0900, Until Discontinu ed escitalopra 0 Yes 20mg 20 mg, Univ ers m oxalate 11-29 Oral, QAM, ity of (LEXAPRO) 14:00: [place] tablet 20 00 on [facility] Medical mg 11/29/22 at Branch 0900, Until Discontinu ed, Routine ARIPiprazol 0 Yes 5mg 5 mg, Unive rs e (ABILIFY) 11-29 Oral, ity of tablet 5 mg 14:00: [place], [place] First dose Medical on [facility] Branch 11/29/22 at 0900, Until Discontinu ed, Routine enoxaparin 0 Yes 40mg 40 mg, Unive rs (LOVENOX) 11-29 Subcutaneo ity of injection 14:00: [place], [place]ILY, [place] 40 mg 00 First dose Medical on [facility] 11/29/22 at 0900, Until Discontinu ed, Routine lipase-prot 0 Yes 1{capsu 1 capsule, Univers ease-amylas 11-29 le} Oral, TID ity of e (CREON) 13:00: MEALS, [place] 12,000-38,0 00 First dose Me dical 00 -60,000 on [facility] unit 11/29/22 at capsule 1 0800, capsule Until Discontinu ed, Routine levothyroxi 0 Yes 150ug 150 mcg, U nivers ne 11-29 Oral, ity of (SYNTHROID) 11:00: QAM-0600, [place] tablet 150 00 First dose Med ical mcg on [facility] Branch 11/29/22 at 0600, Until Discontinu ed, Routine gabapentin 0 Yes 800mg 800 mg, Uni vers (NEURONTIN) 11-29 Oral, TID, it y of tablet 800 01:15: First dose [place] mg 00 on [facility] 11/28/22 at Branch 2015, Until Discontinu ed, Routine albuterol 0 Yes 2{puff} 2 Puff, Un maddie (VENTOLIN) 11-29 Inhalation ity of inhaler 2 00:58: , Q6HPRN, Real as Puff 39 Starting Medical on [facility] 11/28/22 at 1958, Until Discontinu ed, Routine, Wheezing, Shortness of Breath lactated 2022- No 1000mL at 200 Univ ers [...] ity o f (PF)) 22:16: 22:15 [place], [place] injection 09 :09 Q3HPRN, Medical 50 mcg Starting Branch on Sat11/28/22 at 1716, Until Patricia 11/29/22 at 1715, Routine, Pain (scale 7-10) HYDROcodone 2022- No 1{tbl} 1 tablet, Univers -acetaminop 11-28 0901 [...] ity of infusion 22:15: 22:33 1,000 mL, [place] 1,000 mL 00 :00 IV Medical Infusion, Branch ONCE, 1 dose, On 11/28/22 at 1715, KENIA ondansetron 2022-0 2022- No 4mg 4 [...] 11/28/22 at 1715, KENIA ondansetron 2022-0 Yes [id number] 4mg Take 1 Univers 4 mg 8-17 tablet by ity of disintegrat 00:00: mouth [place] ing tablet 00 every 8 Medica l (eight) Branch hours as needed for Nausea and Vomiting (N/V). albuterol 2022-0 Yes [id number] 2{puff} Inhale 2 Univers 90 8-17 Puffs ity of mcg/actuati 00:00: every 6 Real as on inhaler 00 (six) Medical hours as Branch needed for Wheezing or Shortness of Breath. ARIPiprazol 2022-0 Yes [id number] 5mg Take 1 Univers e 5 mg 8-17 tablet by ity of tablet 00:00: mouth in [place] 00 the Medical morning. Branch ondansetron 2022-0 Yes [id number] 4mg Take 1 Univers 4 mg 8-17 tablet by ity of disintegrat 00:00: mouth [place] ing tablet 00 every 8 Medica l (eight) Branch hours as needed for Nausea and Vomiting (N/V). albuterol 2022-0 Yes [id number] 2{puff} Inhale 2 Univers 90 8-17 Puffs ity of mcg/actuati 00:00: every 6 Real as on inhaler 00 (six) Medical hours as Branch needed for Wheezing or Shortness of Breath. ARIPiprazol 2022-0 Yes [id number] 5mg Take 1 Univers e 5 mg 8-17 tablet by ity of tablet 00:00: mouth in [place] 00 the Medical morning. Branch ondansetron 2022-0 Yes [id number] 4mg Take 1 Univers 4 mg 8-17 tablet by ity of disintegrat 00:00: mouth [place] ing tablet 00 every 8 Medica l (eight) Branch hours as needed for Nausea and Vomiting (N/V). albuterol 2022-0 Yes [id number] 2{puff} Inhale 2 Univers 90 8-17 Puffs ity of mcg/actuati 00:00: every 6 Real as on inhaler 00 (six) Medical hours as Branch needed for Wheezing or Shortness of Breath. ARIPiprazol 2022-0 Yes [id number] 5mg Take 1 Univers e 5 mg 8-17 tablet by ity of tablet 00:00: mouth in [place] 00 the Medical morning. Branch ondansetron 2022-0 Yes [id number] 4mg Take 1 Univers 4 mg 8-17 tablet by ity of disintegrat 00:00: mouth [place] ing tablet 00 every 8 Medica l (eight) Branch hours as needed for Nausea and Vomiting (N/V). albuterol 2022-0 Yes [id number] 2{puff} Inhale 2 Univers 90 8-17 Puffs ity of mcg/actuati 00:00: every 6 Real as on inhaler 00 (six) Medical hours as Branch needed for Wheezing or Shortness of Breath. ARIPiprazol 2022-0 Yes [id number] 5mg Take 1 Univers e 5 mg 8-17 tablet by ity of tablet 00:00: mouth in [place] 00 the Medical morning. Branch albuterol 2022-0 Yes [id number] 2{puff} Inhale 2 Univers 90 8-17 Puffs ity of mcg/actuati 00:00: every 6 Real as on inhaler 00 (six) Medical hours as Branch needed for Wheezing or Shortness of Breath. ARIPiprazol 2022-0 Yes [id number] 5mg Take 1 Univers e 5 mg 8-17 tablet by ity of tablet 00:00: mouth in [place] 00 the Medical morning. Branch albuterol 2022-0 Yes [id number] 2{puff} Inhale 2 Univers 90 8-17 Puffs ity of mcg/actuati 00:00: every 6 Real as on inhaler 00 (six) Medical hours as Branch needed for Wheezing or Shortness of Breath. ARIPiprazol 2022-0 Yes [id number] 5mg Take 1 Univers e 5 mg 8-17 tablet by ity of tablet 00:00: mouth in [place] 00 the Medical morning. Branch albuterol 2022-0 Yes [id number] 2{puff} Inhale 2 Univers 90 8-17 Puffs ity of mcg/actuati 00:00: every 6 Real as on inhaler 00 (six) Medical hours as Branch needed for Wheezing or Shortness of Breath. ARIPiprazol 2022-0 Yes [id number] 5mg Take 1 Univers e 5 mg 8-17 tablet by ity of tablet 00:00: mouth in [place] 00 the Medical morning. Branch albuterol 2022-0 Yes [id number] 2{puff} Inhale 2 Univers 90 8-17 Puffs ity of mcg/actuati 00:00: every 6 Real as on inhaler 00 (six) Medical hours as Branch needed for Wheezing or Shortness of Breath. ARIPiprazol 2022-0 Yes [id number] 5mg Take 1 Univers e 5 mg 8-17 tablet by ity of tablet 00:00: mouth in [place] 00 the Medical morning. Branch albuterol 2022-0 Yes [id number] 2{puff} Inhale 2 Univers 90 8-17 Puffs ity of mcg/actuati 00:00: every 6 Real as on inhaler 00 (six) Medical hours as Branch needed for Wheezing or Shortness of Breath. ARIPiprazol 2022-0 Yes [id number] 5mg Take 1 Univers e 5 mg 8-17 tablet by ity of tablet 00:00: mouth in [place] 00 the Medical morning. Branch albuterol 2022-0 Yes [id number] 2{puff} Inhale 2 Univers 90 8-17 Puffs ity of mcg/actuati 00:00: every 6 Real as on inhaler 00 (six) Medical hours as Branch needed for Wheezing or Shortness of Breath. ARIPiprazol 2022-0 Yes [id number] 5mg Take 1 Univers e 5 mg 8-17 tablet by ity of tablet 00:00: mouth in [place] 00 the Medical morning. Branch albuterol 2022-0 Yes [id number] 2{puff} Inhale 2 Univers 90 8-17 Puffs ity of mcg/actuati 00:00: every 6 Real as on inhaler 00 (six) Medical hours as Branch needed for Wheezing or Shortness of Breath. ARIPiprazol 2022-0 Yes [id number] 5mg Take 1 Univers e 5 mg 8-17 tablet by ity of tablet 00:00: mouth in [place] 00 the Medical morning. Branch albuterol 2022-0 Yes [id number] 2{puff} Inhale 2 Univers 90 8-17 Puffs ity of mcg/actuati 00:00: every 6 Real as on inhaler 00 (six) Medical hours as Branch needed for Wheezing or Shortness of Breath. ARIPiprazol 2022-0 Yes [id number] 5mg Take 1 Univers e 5 mg 8-17 tablet by ity of tablet 00:00: mouth in [place] 00 the Medical morning. Branch albuterol 2022-0 Yes [id number] 2{puff} Inhale 2 Univers 90 8-17 Puffs ity of mcg/actuati 00:00: every 6 Real as on inhaler 00 (six) Medical hours as Branch needed for Wheezing or Shortness of Breath. ARIPiprazol 2022-0 Yes [id number] 5mg Take 1 Univers e 5 mg 8-17 tablet by ity of tablet 00:00: mouth in [place] 00 the Medical morning. Branch albuterol 2022-0 Yes [id number] 2{puff} Inhale 2 Univers 90 8-17 Puffs ity of mcg/actuati 00:00: every 6 Real as on inhaler 00 (six) Medical hours as Branch needed for Wheezing or Shortness of Breath. ARIPiprazol 2022-0 Yes [id number] 5mg Take 1 Univers e 5 mg 8-17 tablet by ity of tablet 00:00: mouth in [place] 00 the Medical morning. Branch albuterol 2022-0 Yes [id number] 2{puff} Inhale 2 [facility] 90 8-17 Puffs ity of mcg/actuati 00:00: every 6 [place] on inhaler 00 (six) Medical hours as Branch needed for Wheezing or Shortness of Breath. ARIPiprazol 3-0 Yes [id number] 5mg Take 1 Univers e 5 mg 8-17 tablet by ity of tablet 00:00: mouth in [place] 00 the Medical morning. Branch albuterol 2022-0 Yes [id number] 2{puff} Inhale 2 [facility] 90 8-17 Puffs ity of mcg/actuati 00:00: every 6 [place] on inhaler 00 (six) Medical hours as Branch needed for Wheezing or Shortness of Breath. ARIPiprazol 2022-0 Yes [id number] 5mg Take 1 Univers e 5 mg 8-17 tablet by ity of tablet 00:00: mouth in [place] 00 the Medical morning. Branch albuterol 2022-0 Yes [id number] 2{puff} Inhale 2 [facility] 90 8-17 Puffs ity of mcg/actuati 00:00: every 6 [place] on inhaler 00 (six) Medical hours as Branch needed for Wheezing or Shortness of Breath. ARIPiprazol 2022-0 Yes [id number] 5mg Take 1 Univers e 5 mg 8-17 tablet by ity of tablet 00:00: mouth in [place] 00 the Medical morning. Branch albuterol 2022-0 Yes [id number] 2{puff} Inhale 2 [facility] 90 8-17 Puffs ity of mcg/actuati 00:00: every 6 [place] on inhaler 00 (six) Medical hours as Branch needed for Wheezing or Shortness of Breath. ARIPiprazol 2022-0 Yes [id number] 5mg Take 1 Univers e 5 mg 8-17 tablet by ity of tablet 00:00: mouth in [place] 00 the Medical morning. Branch ondansetron 2022- No [id number] 4mg Take 1 [facility] 4 mg 8-17 - tablet by ity of disintegrat 00:00: 00:00 [place] tablet 00 :00 every 8 Medica l (eight) Branch hours as needed for Nausea and Vomiting (N/V). HYDROcodone 2022-2022- No [id number] 1{tbl} Take 1 [...] [place] mg 00 First dose Medical on Sat11/13/22 at 0900, Until Discontinu ed escitalopra 2022-0 Yes 20mg 20 mg, Univ ers m oxalate 8-15 Oral, QAM, ity of (LEXAPRO) 14:00: First dose [place] tablet 20 00 sat Medical mg 11/13/22 at Branch 0900, Until Discontinu ed, Routine ARIPiprazol Yes 5mg 5 mg, [facility] rs e (ABILIFY) 8-15 Oral, ity of tablet 5 mg 14:00: [place] 00 First [place] Medical on [facility] 11/13/22 at 0900, Until Discontinu ed, Routine gabapentin Yes 800mg 800 mg, Uni vers (NEURONTIN) 8-15 Oral, BID, it y of tablet 800 13:00: First dose [place] mg 00 on [facility] 11/13/22 at Branch 0800, Until Discontinu ed, Routine lipase-prot Yes 1{capsu 1 capsule, Univers ease-amylas 8-15 le} Oral, TID ity of e (CREON) 13:00: MEALS, [place] 12,000-38,0 00 First dose Me dical 00 -60,000 on [facility] unit 11/13/22 at capsule 1 0800, capsule Until Discontinu ed, Routine levothyroxi Yes 150ug 150 mcg, U nivers ne 8-15 Oral, ity of (SYNTHROID) 11:00: QAM-0600, [place] tablet 150 00 First dose Med ical mcg on [facility] 11/13/22 at 0600, Until Discontinu ed, Routine lactated 2022- No 1000mL at 125 Univ ers ringers IV 8 08-15 mL/hr, ity of infusion 08:45: 16:33 1,000 mL, [place] 1,000 mL 00 :43 IV Medical Infusion, Branch CONTINUOUS , Starting on Sat11/13/22 at 0345, Until Sat11/13/22 at 1133, Routine albuterol 0 Yes 2{puff} 2 Puff, [facility] [place] (VENTOLIN) 8-15 Inhalation ity of inhaler 2 08:32: , Q6HPRN, [place] as Puff 30 Starting Medical on [facility] 11/13/22 at 0332, Until Discontinu ed, Routine, Wheezing, Shortness of Breath ondansetron Yes 4mg 4 mg, Slow Univers (ZOFRAN 8-15 IV Push, ity of (PF)) 08:29: Q6HPRN, [place] injection 4 35 Starting Medi julieta mg on [facility] 11/13/22 at 0329, Until Discontinu ed, Routine, Nausea and Vomiting (N/V) morpHINE (2 2022- No 2mg 2 mg, Slow Univers mg/mL) 11-13 IV Push, ity of injection 2 08:29: 08:28 Q4HPRN, [place] mg 25 :25 Starting Medical on Sat11/13/22 at 0329, Until Sat11/14/22 at 0328, Routine, Pain (scale 7-10) HYDROcodone 2022- No 1{tbl} 1 tablet, Univers -acetaminop 11-1317 Oral, ity of hen (NORCO 08:29: 08:28 Q6HPRN, [place] 5) 5-325 mg 21 :21 Starting Medi julieta tablet 1 on Sat [place] tablet 11/13/22 at 0329, Until Patricia 11/15/22 [...] 00 :00 dose, On Medi julieta mg [facility] Branch 11/12/22 at 2330, KENIA morpHINE (2 2022- No 2mg 2 mg, Slow Univers mg/mL) 11-13 IV Push, ity of injection 2 04:30: 04:31 ONCE, 1 [place] mg 00 :00 dose, On Medical Mon Branch 11/12/22 at 2330, STAT ondansetron No 4mg 4 mg, Slow Univers (ZOFRAN 11-13 IV Push, ity of (PF)) 02:15: 02:25 ONCE, 1 [place] injection 4 00 :00 dose, On Medi julieta mg Mon Branch 11/12/22 at 2115, KENIA FENTanyl PF No 25ug 25 mcg, [facility] [place] (SUBLIMAZE 11-13 Slow IV ity o f (PF)) 02:15: 02:25 Push, [place] injection 00 :00 ONCE, 1 Medical 25 mcg dose, On Branch 11/12/22 at 2115, STAT HYDROcodone 2022- No [id number] 1{tbl} Take 1 [...] [place] mg 29 Starting Medical on Sat11/05/22 at 1312, Until Discontinu ed, Routine, Pain (scale 7-10) omeprazole 2022-0 Yes 40mg 40 mg, Unive rs (PRILOSEC) 11-05 Oral, ity of capsule 40 14:00: DAILY, [place] mg 00 First dose Medical on Sat11/05/22 at 0900, Until Discontinu ed escitalopra 2022-0 Yes 20mg 20 mg, Univ ers m oxalate 11-05 Oral, QAM, ity of (LEXAPRO) 14:00: First dose [place] tablet 20 00 on [facility] mg 11/05/22 at Branch 0900, Until Discontinu ed, Routine ARIPiprazol 0 Yes 5mg 5 mg, Unive rs e (ABILIFY) 11-05 Oral, ity of tablet 5 mg 14:00: DAILY, [place] 00 First dose Medical on [facility] Branch 11/05/22 at 0900, Until Discontinu ed, Routine enoxaparin 0 Yes 40mg 40 mg, Unive rs (LOVENOX) 11-05 Subcutaneo ity of injection 14:00: us, DAILY, [place] 40 mg 00 First dose Medical on [facility] Branch 11/05/22 at 0900, Until Discontinu ed, Routine gabapentin 0 Yes 800mg 800 mg, Uni vers (NEURONTIN) 11-05 Oral, TID, it y of tablet 800 13:00: First dose [place] mg 00 on [facility] 11/05/22 at Branch 0800, Until Discontinu ed, Routine lipase-prot 0 Yes 1{capsu 1 capsule, Univers ease-amylas 11-05 le} Oral, TID ity of e (CREON) 13:00: MEALS, [place] 12,000-38,0 00 First dose Me dical 00 -60,[address] [facility] unit 11/05/22 at capsule 1 0800, capsule Until Discontinu ed, Routine levothyroxi 0 Yes 150ug 150 mcg, U nivers ne 11-05 Oral, ity of (SYNTHROID) 11:00: QAM-0600, [place] tablet 150 00 First dose Med ical mcg on [facility] 11/05/22 at 0600, Until Discontinu ed, Routine albuterol 0 Yes 2{puff} 2 Puff, [place] (VENTOLIN) 11-05 Inhalation ity of inhaler 2 08:49: , Q6HPRN, [place] Puff 30 Starting Medical on [facility] 11/05/22 at 0349, Until Discontinu ed, Routine, Wheezing, Shortness of Breath atorvastati 2022-0 2023- No 80mg Take 80 mg Univers n 80 mg 11-05 08-06 by mouth ity of tablet 03:50: 00:00 at [place] 46 :00 bedtime. Medical Branch nicotine 0 Yes 1{patch 1 Patch, [place] (NICODERM) 11-05 } Topical, ity o f 14 mg/24 hr 02:30: Administer [place] patch 1 00 over 24 Medical Patch Hours, Branch Q24H, First dose on 11/04/22 at 2130, Until Discontinu ed, Routine varenicline 0 Yes [id number] 1mg Take 1 Univers (CHANTIX) 1 - tablet by ity of mg tablet 00:00: [place] 00 the Medical morning Branch and 1 tablet in the evening. varenicline Yes [id number] 1mg Take 1 Univers (CHANTIX) 1 8-07 tablet by ity of mg tablet 00:00: [place] 00 the Medical morning Branch and 1 tablet in the evening. varenicline 0 2022- No [id number] 1mg Take 1 Univers (CHANTIX) 1 11-05-25 tablet by it y of mg tablet 00:00: 00:00 mouth in [place] 00 :00 the Medical morning Branch and 1 tablet in the evening. lactated Yes 1000mL at 150 Unive rs ringers IV 806 mL/hr, ity of infusion 22:15: 1,000 mL, [place] 1,000 mL 00 IV Medical Infusion, Branch CONTINUOUS , Starting on 11/04/22 at 1715, Until Discontinu ed, Routine ondansetron 0 Yes 4mg 4 mg, Slow Univers (ZOFRAN 11-04 IV Push, ity of (PF)) 22:06: Q6HPRN, [place] injection 4 09 Starting Medi julieta mg on [place] Branch 11/04/22 at 1706, Until Discontinu ed, Routine, Nausea and Vomiting (N/V) FENTanyl PF 0 2022- No 50ug 50 mcg, [place] (SUBLIMAZE 11-04 08-07 Slow IV ity o f (PF)) 22:05: 18:14 Push, [place] injection 28 :02 Q3HPRN, Medical 50 mcg Starting Branch on 11/04/22 at 1705, Until 11/05/22 at 1314, Routine, Pain (scale 7-10) HYDROcodone 2022- No 1{tbl} 1 tablet, Univers -acetaminop 11-04 Oral, ity of hen (NORCO 22:05: 22:04 Q6HPRN, [place] 5) 5-325 mg 23 :23 Starting Medi julieta tablet 1 on [facility] tablet 11/04/22 at 1705, Until 11/06/22 at 1704, Routine, Pain (scale 4-6) morpHINE (4 2022- No 4mg 4 mg, Slow Univers mg/mL) 11-04 IV Push, ity of injection 4 20:00: 20:22 ONCE, 1 [place] mg 00 :00 dose, On [facility] 11/04/22 Branch at 1500, STAT famotidine 2022- No 20mg 20 mg, Univ ers (PEPCID 11-04 Slow IV ity of (PF)) 20:00: 20:22 Push, [place] injection 00 :00 ONCE, 1 Medical 20 mg dose, On [facility] 11/04/22 at 1500, KENIA NaCl 0.9% 2022- No 1000mL at 999 Uni vers (NS) bolus 11-04 mL/hr, ity of infusion 19:30: 23:27 1,000 mL, [place] 1,000 mL 00 :00 IV Medical Piggyback, [place] ONCE, 1 dose, On [facility] 11/04/22 at 1430, STAT NaCl 0.9% 2022- No 1000mL at 999 Uni vers (NS) bolus 11-04 mL/hr, ity of infusion 18:30: 19:53 1,000 mL, [place] 1,000 mL 00 :00 IV Medical Piggyback, [place] ONCE, 1 dose, On [place] 11/04/22 at 1330, STAT morpHINE (4 2022- No 6mg 6 mg, Slow Univers mg/mL) 11-04 IV Push, ity of injection 6 18:00: 17:56 ONCE, 1 [place] mg 00 :00 dose, On [facility] 11/04/22 Branch at 1300, STAT ondansetron 2022-2022- No 8mg 8 mg, Slow Univers (ZOFRAN 11-04 IV Push, ity of (PF)) 17:45: 17:56 ONCE, 1 [place] injection 8 00 :00 dose, On Medi julieta mg 11/04/22 Branch at 1245, KEN[place] ESCITALOPRA Yes [id number] TAKE ONE Univers M OXALATE 8-02 TABLET BY ity o f 20 mg 00:00: MOUTH [place] tablet 00 EVERY Medical MORNING Branch ESCITALOPRA Yes [id number] TAKE ONE Univers M OXALATE 8-02 TABLET BY ity o f 20 mg 00:00: MOUTH [place] tablet 00 EVERY Medical MORNING Branch ESCITALOPRA Yes [id number] TAKE ONE Univers M OXALATE 8-02 TABLET BY ity o f 20 mg 00:00: MOUTH [place] tablet 00 EVERY Medical MORNING Branch ESCITALOPRA Yes [id number] TAKE ONE Univers M OXALATE 8-02 TABLET BY ity o f 20 mg 00:00: MOUTH [place] tablet 00 EVERY Medical MORNING Branch ESCITALOPRA Yes [id number] TAKE ONE Univers M OXALATE 8-02 TABLET BY ity o f 20 mg 00:00: MOUTH [place] tablet 00 EVERY Medical MORNING Branch ESCITALOPRA Yes [id number] TAKE ONE Univers M OXALATE 8-02 TABLET BY ity o f 20 mg 00:00: MOUTH [place] tablet 00 EVERY Medical MORNING Branch ESCITALOPRA Yes [id number] TAKE ONE Univers M OXALATE 8-02 TABLET BY ity o f 20 mg 00:00: MOUTH [place] tablet 00 EVERY Medical MORNING Branch ESCITALOPRA 0 Yes [id number] TAKE ONE Univers M OXALATE 8-02 TABLET BY ity o f 20 mg 00:00: MOUTH [place] tablet 00 EVERY Medical MORNING Branch ESCITALOPRA 2022-0 Yes [id number] TAKE ONE Univers M OXALATE 8-02 TABLET BY ity o f 20 mg 00:00: MOUTH [place] tablet 00 EVERY Medical MORNING Branch ESCITALOPRA Yes [id number] TAKE ONE Univers M OXALATE 8-02 TABLET BY ity o f 20 mg 00:00: MOUTH [place] tablet 00 EVERY Medical MORNING Branch ESCITALOPRA Yes [id number] TAKE ONE Univers M OXALATE 8-02 TABLET BY ity o f 20 mg 00:00: MOUTH [place] tablet 00 EVERY Medical MORNING Branch ESCITALOPRA Yes [id number] TAKE ONE Univers M OXALATE 8-02 TABLET BY ity o f 20 mg 00:00: MOUTH [place] tablet 00 EVERY Medical MORNING Branch ESCITALOPRA Yes [id number] TAKE ONE Univers M OXALATE 8-02 TABLET BY ity o f 20 mg 00:00: MOUTH [place] tablet 00 EVERY Medical MORNING Branch ESCITALOPRA Yes [id number] TAKE ONE Univers M OXALATE 8-02 TABLET BY ity o f 20 mg 00:00: MOUTH [place] tablet 00 EVERY Medical MORNING Branch ESCITALOPRA Yes [id number] TAKE ONE Univers M OXALATE 8-02 TABLET BY ity o f 20 mg 00:00: MOUTH [place] tablet 00 EVERY Medical MORNING Branch ESCITALOPRA Yes [id number] TAKE ONE Univers M OXALATE 8-02 TABLET BY ity o f 20 mg 00:00: MOUTH [place] tablet 00 EVERY Medical MORNING Branch ESCITALOPRA Yes [id number] TAKE ONE Univers M OXALATE 8-02 TABLET BY ity o f 20 mg 00:00: MOUTH [place] tablet 00 EVERY Medical MORNING Branch ESCITALOPRA Yes [id number] TAKE ONE Univers M OXALATE 8-02 TABLET BY ity o f 20 mg 00:00: MOUTH [place] tablet 00 EVERY Medical MORNING Branch ESCITALOPRA Yes [id number] TAKE ONE Univers M OXALATE 8-02 TABLET BY ity o f 20 mg 00:00: MOUTH [place] tablet 00 EVERY Medical MORNING Branch ESCITALOPRA Yes [id number] TAKE ONE Univers M OXALATE 8-02 TABLET BY ity o f 20 mg 00:00: MOUTH [place] tablet 00 EVERY Medical MORNING Branch ESCITALOPRA Yes [id number] TAKE ONE Univers M OXALATE 8-02 TABLET BY ity o f 20 mg 00:00: MOUTH [place] tablet 00 EVERY Medical MORNING Branch ESCITALOPRA Yes [id number] TAKE ONE Univers M OXALATE 8-02 TABLET BY ity o f 20 mg 00:00: MOUTH [place] tablet 00 EVERY Medical MORNING Branch ESCITALOPRA Yes [id number] TAKE ONE Univers M OXALATE 8-02 TABLET BY ity o f 20 mg 00:00: MOUTH [place] tablet 00 EVERY Medical MORNING Branch ESCITALOPRA 2023-0 Yes [id number] TAKE ONE Univers M OXALATE 8-02 TABLET BY ity o f 20 mg 00:00: MOUTH [place] tablet 00 EVERY Medical MORNING Branch ESCITALOPRA 2022-0 Yes [id number] TAKE ONE Univers M OXALATE 8-02 TABLET BY ity o f 20 mg 00:00: MOUTH [place] tablet 00 EVERY Medical MORNING Branch ESCITALOPRA 2022-0 Yes [id number] TAKE ONE Univers M OXALATE 8-02 TABLET BY ity o f 20 mg 00:00: MOUTH [place] tablet 00 EVERY Medical MORNING Branch ESCITALOPRA 2022-0 Yes [id number] TAKE ONE Univers M OXALATE 8-02 TABLET BY ity o f 20 mg 00:00: MOUTH [place] tablet 00 EVERY Medical MORNING Branch ESCITALOPRA 2022-0 Yes [id number] TAKE ONE Univers M OXALATE 8-02 TABLET BY ity o f 20 mg 00:00: MOUTH [place] tablet 00 EVERY Medical MORNING Branch ESCITALOPRA 2022-0 Yes [id number] TAKE ONE Univers M OXALATE 8-02 TABLET BY ity o f 20 mg 00:00: MOUTH [place] tablet 00 EVERY Medical MORNING Branch buPROPion 2022-0 Yes [id number] 1{tbl} Take 1 Univers HCL, 7-25 tablet by ity of smoking 00:00: mouth in [facility], 150 00 the Medical mg Tb12 morning. Branch Then in 3 days take one tablet by mouth twice a day, if the dose is too high just take once daily buPROPion 2022-0 Yes [id number] 1{tbl} Take 1 Univers HCL, 7-25 tablet by ity of smoking 00:00: mouth in [facility], 150 00 the Medical mg Tb12 morning. Branch Then in 3 days take one tablet by mouth twice a day, if the dose is too high just take once daily buPROPion 2022-0 Yes [id number] 1{tbl} Take 1 Univers HCL, 7-25 tablet by ity of smoking 00:00: mouth in [facility], 150 00 the Medical mg Tb12 morning. Branch Then in 3 days take one tablet by mouth twice a day, if the dose is too high just take once daily buPROPion 2022-0 2023- No [id number] 1{tbl} Take 1 Univers HCL, 7-25 08-06 tablet by ity of smoking 00:00: 00:00 mouth in [place] deter, 150 00 :00 the Medical mg Tb12 morning. Branch Then in 3 days take one tablet by mouth twice a day, if the dose is too high just take once daily varenicline 2022-0 Yes [id number] Take one Univers (CHANTIX 7-13 0.5mg tab ity of STARTING 00:00: by mouth [facility]) 00 once daily Med ical 0.5 mg for 3 Branch (11)- 1 mg days, then (42) tablet one 0.5mg tab twice daily for 4 days, then one 1mg tab twice daily. albuterol Yes [id number] 2{puff} Inhale 2 Univers 90 7-13 Puffs ity of mcg/actuati 00:00: every 6 [place] on inhaler 00 (six) Medical hours as Branch needed for Wheezing or Shortness of Breath. varenicline 2022-0 Yes [id number] Take one Univers (CHANTIX 7-13 0.5mg tab ity of STARTING 00:00: by mouth [facility]) 00 once daily Med ical 0.5 mg for 3 Branch (11)- 1 mg days, then (42) tablet one 0.5mg tab twice daily for 4 days, then one 1mg tab twice daily. albuterol 0 Yes [id number] 2{puff} Inhale 2 Univers 90 7-13 Puffs ity of mcg/actuati 00:00: every 6 [place] on inhaler 00 (six) Medical hours as Branch needed for Wheezing or Shortness of Breath. albuterol Yes [id number] 2{puff} Inhale 2 Univers 90 7-13 Puffs ity of mcg/actuati 00:00: every 6 [place] on inhaler 00 (six) Medical hours as Branch needed for Wheezing or Shortness of Breath. albuterol 2022-0 Yes [id number] 2{puff} Inhale 2 Univers 90 7-13 Puffs ity of mcg/actuati 00:00: every 6 [place] on inhaler 00 (six) Medical hours as Branch needed for Wheezing or Shortness of Breath. albuterol 2022-0 Yes [id number] 2{puff} Inhale 2 Univers 90 7-13 Puffs ity of mcg/actuati 00:00: every 6 [place] on inhaler 00 (six) Medical hours as Branch needed for Wheezing or Shortness of Breath. albuterol Yes [id number] 2{puff} Inhale 2 Univers 90 7-13 Puffs ity of mcg/actuati 00:00: every 6 [place] on inhaler 00 (six) Medical hours as Branch needed for Wheezing or Shortness of Breath. albuterol Yes [id number] 2{puff} Inhale 2 Univers 90 7-13 Puffs ity of mcg/actuati 00:00: every 6 [place] inhaler 00 (six) Medical hours as Branch needed for Wheezing or Shortness of Breath. albuterol Yes [id number] 2{puff} Inhale 2 Univers 90 7-13 Puffs ity of mcg/actuati 00:00: every 6 [place] inhaler 00 (six) Medical hours as Branch needed for Wheezing or Shortness of Breath. albuterol Yes [id number] 2{puff} Inhale 2 Univers 90 7-13 Puffs ity of mcg/actuati 00:00: every 6 [place] inhaler 00 (six) Medical hours as Branch needed for Wheezing or Shortness of Breath. albuterol Yes [id number] 2{puff} Inhale 2 Univers 90 7-13 Puffs ity of mcg/actuati 00:00: every 6 [place] inhaler 00 (six) Medical hours as Branch needed for Wheezing or Shortness of Breath. albuterol Yes [id number] 2{puff} Inhale 2 Univers 90 7-13 Puffs ity of mcg/actuati 00:00: every 6 [place] inhaler 00 (six) Medical hours as Branch needed for Wheezing or Shortness of Breath. albuterol Yes [id number] 2{puff} Inhale 2 Univers 90 7-13 Puffs ity of mcg/actuati 00:00: every 6 [place] inhaler 00 (six) Medical hours as Branch needed for Wheezing or Shortness of Breath. albuterol Yes [id number] 2{puff} Inhale 2 Univers 90 7-13 Puffs ity of mcg/actuati 00:00: every 6 [place] inhaler 00 (six) Medical hours as Branch needed for Wheezing or Shortness of Breath. albuterol Yes [id number] 2{puff} Inhale 2 Univers 90 7-13 Puffs ity of mcg/actuati 00:00: every 6 [place] on inhaler 00 (six) Medical hours as Branch needed for Wheezing or Shortness of Breath. albuterol 2022- No [id number] 2{puff} Inhale 2 Univers 90 7-13 08-17 Puffs ity of mcg/actuati 00:00: 00:00 every 6 [place] on inhaler 00 :00 (six) Medical hours as Branch needed for Wheezing or Shortness of Breath. albuterol 2022- No [id number] 2{puff} Inhale 2 Univers 90 7-13 08-17 Puffs ity of mcg/actuati 00:00: 00:00 every 6 [place] on inhaler 00 :00 (six) Medical hours as Branch needed for Wheezing or Shortness of Breath. varenicline 2022- No [id number] Take one Univers (CHANTIX 10-11 07-25 0.5mg tab ity o f STARTING 00:00: 00:00 by [place] MONTH BOX) 00 :00 once daily Med ical 0.5 mg for 3 Branch (11)- 1 mg days, then (42) tablet one 0.5mg tab twice daily for 4 days, then one 1mg tab twice daily. CRE2022 Yes [id number] TAKE ONE Uni vers 12,000-38,0 7-12 CAPSULE BY it y of 00:00: MOUTH [place] unit 00 EVERY Medical capsule MORNING , Branch ONE CAPSULE AT NOON AND 1 CAPSULE IN THE EVENING WITH MEALS CRE2022 Yes [id number] TAKE ONE Uni vers 12,000-38,0 7-12 CAPSULE BY it y of 00:00: MOUTH [place] unit 00 EVERY Medical capsule MORNING , Branch ONE CAPSULE AT NOON AND 1 CAPSULE IN THE EVENING WITH MEALS CRE2022 Yes [id number] TAKE ONE Uni vers 12,000-38,0 7-12 CAPSULE BY it y of 60, 00:00: MOUTH [place] unit 00 EVERY Medical capsule MORNING , Branch ONE CAPSULE AT NOON AND 1 CAPSULE IN THE EVENING WITH MEALS CRE2022-0 Yes [id number] TAKE ONE Uni vers 12,000-38,0 7-12 CAPSULE BY it y of 60, 00:00: MOUTH [place] unit 00 EVERY Medical capsule MORNING , Branch ONE CAPSULE AT NOON AND 1 CAPSULE IN THE EVENING WITH MEALS CREON Yes [id number] TAKE ONE Uni vers 12,000-38,0 7-12 CAPSULE BY it y of 60, 00:00: MOUTH [place] unit 00 EVERY Medical capsule MORNING , Branch ONE CAPSULE AT NOON AND 1 CAPSULE IN THE EVENING WITH MEALS CREON Yes [id number] TAKE ONE Uni vers 12,000-38,0 7-12 CAPSULE BY it y of 60, 00:00: MOUTH [place] unit 00 EVERY Medical capsule MORNING , Branch ONE CAPSULE AT NOON AND 1 CAPSULE IN THE EVENING WITH MEALS CREON Yes [id number] TAKE ONE Uni vers 12,000-38,0 7-12 CAPSULE BY it y of 60 00:00: MOUTH [place] unit 00 EVERY Medical capsule MORNING , Branch ONE CAPSULE AT NOON AND 1 CAPSULE IN THE EVENING WITH MEALS CREON Yes [id number] TAKE ONE Uni vers 12,000-38,0 7-12 CAPSULE BY it y of 60, 00:00: MOUTH [place] unit 00 EVERY Medical capsule MORNING , Branch ONE CAPSULE AT NOON AND 1 CAPSULE IN THE EVENING WITH MEALS CREON Yes [id number] TAKE ONE Uni vers 12,000-38,0 7-12 CAPSULE BY it y of 60, 00:00: MOUTH [place] unit 00 EVERY Medical capsule MORNING , Branch ONE CAPSULE AT NOON AND 1 CAPSULE IN THE EVENING WITH MEALS CREON Yes [id number] TAKE ONE Uni vers 12,000-38,0 7-12 CAPSULE [...] IN THE EVENING WITH MEALS CREON Yes [id number] TAKE ONE Uni vers 12,000-38,0 7-12 CAPSULE BY it y of 60, 00:00: MOUTH [place] unit 00 EVERY Medical capsule MORNING , Branch ONE CAPSULE AT NOON AND 1 CAPSULE IN THE EVENING WITH MEALS CREON Yes [id number] TAKE ONE Uni vers 12,000-38,0 7-12 CAPSULE BY it y of 60, 00:00: MOUTH [place] unit 00 EVERY Medical capsule MORNING , Branch ONE CAPSULE AT NOON AND 1 CAPSULE IN THE EVENING WITH MEALS CREON Yes [id number] TAKE ONE Uni vers 12,000-38,0 7-12 CAPSULE BY it y of 60, 00:00: MOUTH [place] unit 00 EVERY Medical capsule MORNING , Branch ONE CAPSULE AT NOON AND 1 CAPSULE IN THE EVENING WITH MEALS CREON Yes [id number] TAKE ONE Uni vers 12,000-38,0 7-12 CAPSULE BY it y of 00:00: MOUTH [place] unit 00 EVERY Medical capsule MORNING , Branch ONE CAPSULE AT NOON AND 1 CAPSULE IN THE EVENING WITH MEALS CREON Yes [id number] TAKE ONE Uni vers 12,000-38,0 7-12 CAPSULE BY it y of , 00:00: MOUTH [place] unit 00 EVERY Medical capsule MORNING , Branch ONE CAPSULE AT NOON AND 1 CAPSULE IN THE EVENING WITH MEALS CREON Yes [id number] TAKE ONE Uni vers 12,000-38,0 7-12 CAPSULE BY it y of , 00:00: MOUTH [place] unit 00 EVERY Medical capsule MORNING , Branch ONE CAPSULE AT NOON AND 1 CAPSULE IN THE EVENING WITH MEALS CREON Yes [id number] TAKE ONE Uni vers 12,000-38,0 7-12 CAPSULE BY it y of 60, 00:00: MOUTH [place] unit 00 EVERY Medical capsule MORNING , Branch ONE CAPSULE AT NOON AND 1 CAPSULE IN THE EVENING WITH MEALS CREON Yes [id number] TAKE ONE Uni vers 12,000-38,0 7-12 CAPSULE [...] IN THE EVENING WITH MEALS CREON Yes [id number] TAKE ONE Uni vers 12,000-38,0 7-12 CAPSULE BY it y of 60, 00:00: MOUTH [place] unit 00 EVERY Medical capsule MORNING , Branch ONE CAPSULE AT NOON AND 1 CAPSULE IN THE EVENING WITH MEALS CREON Yes [id number] TAKE ONE Uni vers 12,000-38,0 7-12 CAPSULE BY it y of 60 00:00: MOUTH [place] unit 00 EVERY Medical capsule MORNING , Branch ONE CAPSULE AT NOON AND 1 CAPSULE IN THE EVENING WITH MEALS CREON Yes [id number] TAKE ONE Uni vers 12,000-38,0 7-12 CAPSULE BY it y of 60 00:00: MOUTH [place] unit 00 EVERY Medical capsule MORNING , Branch ONE CAPSULE AT NOON AND 1 CAPSULE IN THE EVENING WITH MEALS CREON Yes [id number] TAKE ONE Uni vers 12,000-38,0 7-12 CAPSULE BY it y of 60 00:00: MOUTH [place] unit 00 EVERY Medical capsule MORNING , Branch ONE CAPSULE AT NOON AND 1 CAPSULE IN THE EVENING WITH MEALS CREON Yes [id number] TAKE ONE Uni vers 12,000-38,0 7-12 CAPSULE BY it y of 60 00:00: MOUTH [place] unit 00 EVERY Medical capsule MORNING , Branch ONE CAPSULE AT NOON AND 1 CAPSULE IN THE EVENING WITH MEALS CREON Yes [id number] TAKE ONE Uni vers 12,000-38,0 7-12 CAPSULE BY it y of 60, 00:00: MOUTH [place] unit 00 EVERY Medical capsule MORNING , Branch ONE CAPSULE AT NOON AND 1 CAPSULE IN THE EVENING WITH MEALS GABAPENTIN Yes [id number] TAKE ONE Univers 800 mg 7-06 [id number] TABLET BY ity of tablet 00:00: MOUTH [place] 00 EVERY Medical MORNING , Branch ONE TABLET AT NOON AND 1 TABLET IN THE EVENING GABAPENTIN Yes [id number] TAKE ONE Univers 800 mg 7-06 [id number] TABLET BY ity of tablet 00:00: MOUTH [place] 00 EVERY Medical MORNING , Branch ONE TABLET AT NOON AND 1 TABLET IN THE EVENING GABAPENTIN 2023-0 Yes [id number] TAKE ONE [facility] 800 mg 7-06 [id number] TABLET BY [facility] tablet 00:00: MOUTH [place] 00 EVERY Medical MORNING , Branch ONE TABLET AT NOON AND 1 TABLET IN THE EVENING GABAPENTIN 2023-0 Yes [id number] TAKE ONE [facility] 800 mg 7-06 [id number] TABLET BY [facility] tablet 00:00: MOUTH [place] 00 EVERY Medical MORNING , Branch ONE TABLET AT NOON AND 1 TABLET IN THE EVENING GABAPENTIN 2023-0 Yes [id number] TAKE ONE [facility] 800 mg 7-06 [id number] TABLET BY [facility] tablet 00:00: MOUTH [place] 00 EVERY Medical MORNING , Branch ONE TABLET AT NOON AND 1 TABLET IN THE EVENING GABAPENTIN 2023-0 Yes [id number] TAKE ONE [facility] 800 mg 7-06 [id number] TABLET BY [facility] tablet 00:00: MOUTH [place] 00 EVERY Medical MORNING , Branch ONE TABLET AT NOON AND 1 TABLET IN THE EVENING GABAPENTIN 2023-0 Yes [id number] TAKE ONE [facility] 800 mg 7-06 [id number] TABLET BY [facility] tablet 00:00: MOUTH [place] 00 EVERY Medical MORNING , Branch ONE TABLET AT NOON AND 1 TABLET IN THE EVENING GABAPENTIN 2023-0 Yes [id number] TAKE ONE [facility] 800 mg 7-06 [id number] TABLET BY [facility] tablet 00:00: MOUTH [place] 00 EVERY Medical MORNING , Branch ONE TABLET AT NOON AND 1 TABLET IN THE EVENING GABAPENTIN 2023-0 Yes [id number] TAKE ONE [facility] 800 mg 7-06 [id number] TABLET BY [facility] tablet 00:00: MOUTH [place] 00 EVERY Medical MORNING , Branch ONE TABLET AT NOON AND 1 TABLET IN THE EVENING GABAPENTIN 2023-0 Yes [id number] TAKE ONE [facility] 800 mg 7-06 [id number] TABLET BY [facility] tablet 00:00: MOUTH [place] 00 EVERY Medical MORNING , Branch ONE TABLET AT NOON AND 1 TABLET IN THE EVENING GABAPENTIN 2023-0 Yes [id number] TAKE ONE [facility] 800 mg 7-06 [id number] TABLET BY [facility] tablet 00:00: MOUTH [place] 00 EVERY Medical MORNING , Branch ONE TABLET AT NOON AND 1 TABLET IN THE EVENING GABAPENTIN 2023-0 Yes [id number] TAKE ONE [facility] 800 mg 7-06 [id number] TABLET BY [facility] tablet 00:00: MOUTH [place] 00 EVERY Medical MORNING , Branch ONE TABLET AT NOON AND 1 TABLET IN THE EVENING GABAPENTIN 2023-0 Yes [id number] TAKE ONE [facility] 800 mg 7-06 [id number] TABLET BY [facility] tablet 00:00: MOUTH [place] 00 EVERY Medical MORNING , Branch ONE TABLET AT NOON AND 1 TABLET IN THE EVENING GABAPENTIN 2023-0 Yes [id number] TAKE ONE [facility] 800 mg 7-06 [id number] TABLET BY [facility] tablet 00:00: MOUTH [place] 00 EVERY Medical MORNING , Branch ONE TABLET AT NOON AND 1 TABLET IN THE EVENING GABAPENTIN 2023-0 Yes [id number] TAKE ONE [facility] 800 mg 7-06 [id number] TABLET BY [facility] tablet 00:00: MOUTH [place] 00 EVERY Medical MORNING , Branch ONE TABLET AT NOON AND 1 TABLET IN THE EVENING GABAPENTIN 2023-0 Yes [id number] TAKE ONE [facility] 800 mg 7-06 [id number] TABLET BY [facility] tablet 00:00: MOUTH [place] 00 EVERY Medical MORNING , Branch ONE TABLET AT NOON AND 1 TABLET IN THE EVENING GABAPENTIN 2023-0 Yes [id number] TAKE ONE [facility] 800 mg 7-06 [id number] TABLET BY [facility] tablet 00:00: MOUTH [place] 00 EVERY Medical MORNING , Branch ONE TABLET AT NOON AND 1 TABLET IN THE EVENING GABAPENTIN 2023-0 Yes [id number] TAKE ONE [facility] 800 mg 7-06 [id number] TABLET BY [facility] tablet 00:00: MOUTH [place] 00 EVERY Medical MORNING , Branch ONE TABLET AT NOON AND 1 TABLET IN THE EVENING GABAPENTIN 2023-0 Yes [id number] TAKE ONE [facility] 800 mg 7-06 [id number] TABLET BY [facility] tablet 00:00: MOUTH [place] 00 EVERY Medical MORNING , Branch ONE TABLET AT NOON AND 1 TABLET IN THE EVENING GABAPENTIN 2023-0 Yes [id number] TAKE ONE [facility] 800 mg 7-06 [id number] TABLET BY [facility] tablet 00:00: MOUTH [place] 00 EVERY Medical MORNING , Branch ONE TABLET AT NOON AND 1 TABLET IN THE EVENING GABAPENTIN 2023-0 Yes [id number] TAKE ONE [facility] 800 mg 7-06 [id number] TABLET BY [facility] tablet 00:00: MOUTH [place] 00 EVERY Medical MORNING , Branch ONE TABLET AT NOON AND 1 TABLET IN THE EVENING GABAPENTIN 2023-0 Yes [id number] TAKE ONE [facility] 800 mg 7-06 [id number] TABLET BY [facility] tablet 00:00: MOUTH [place] 00 EVERY Medical MORNING , Branch ONE TABLET AT NOON AND 1 TABLET IN THE EVENING GABAPENTIN 2023-0 Yes [id number] TAKE ONE [facility] 800 mg 7-06 [id number] TABLET BY [facility] tablet 00:00: MOUTH [place] 00 EVERY Medical MORNING , Branch ONE TABLET AT NOON AND 1 TABLET IN THE EVENING GABAPENTIN 2023-0 Yes [id number] TAKE ONE [facility] 800 mg 7-06 [id number] TABLET BY [facility] tablet 00:00: MOUTH [place] 00 EVERY Medical MORNING , Branch ONE TABLET AT NOON AND 1 TABLET IN THE EVENING GABAPENTIN 2023-0 Yes [id number] TAKE ONE [facility] 800 mg 7-06 [id number] TABLET BY [facility] tablet 00:00: MOUTH [place] 00 EVERY Medical MORNING , Branch ONE TABLET AT NOON AND 1 TABLET IN THE EVENING GABAPENTIN 2023-0 Yes [id number] TAKE ONE [facility] 800 mg 7-06 [id number] TABLET BY [facility] tablet 00:00: MOUTH [place] 00 EVERY Medical MORNING , Branch ONE TABLET AT NOON AND 1 TABLET IN THE EVENING GABAPENTIN 2023-0 Yes [id number] TAKE ONE [facility] 800 mg 7-06 [id number] TABLET BY [facility] tablet 00:00: MOUTH [place] 00 EVERY Medical MORNING , Branch ONE TABLET AT NOON AND 1 TABLET IN THE EVENING GABAPENTIN 2023-0 Yes [id number] TAKE ONE [facility] 800 mg 7-06 [id number] TABLET BY [facility] tablet 00:00: MOUTH [place] 00 EVERY Medical MORNING , Branch ONE TABLET AT NOON AND 1 TABLET IN THE EVENING GABAPENTIN 2023-0 Yes [id number] TAKE ONE [facility] 800 mg 7-06 [id number] TABLET BY [facility] tablet 00:00: MOUTH [place] 00 EVERY Medical MORNING , Branch ONE TABLET AT NOON AND 1 TABLET IN THE EVENING GABAPENTIN 2023-0 Yes [id number] TAKE ONE [facility] 800 mg 7-06 [id number] TABLET BY [facility] tablet 00:00: MOUTH [place] 00 EVERY Medical MORNING , Branch ONE TABLET AT NOON AND 1 TABLET IN THE EVENING GABAPENTIN 2023-0 Yes [id number] TAKE ONE [facility] 800 mg 7-06 [id number] TABLET BY [facility] tablet 00:00: MOUTH [place] 00 EVERY Medical MORNING , Branch ONE TABLET AT NOON AND 1 TABLET IN THE EVENING GABAPENTIN 2023-0 Yes [id number] TAKE ONE [facility] 800 mg 7-06 [id number] TABLET BY [facility] tablet 00:00: MOUTH [place] 00 EVERY Medical MORNING , Branch ONE TABLET AT NOON AND 1 TABLET IN THE EVENING GABAPENTIN 2023-0 Yes [id number] TAKE ONE [facility] 800 mg 7-06 [id number] TABLET BY [facility] tablet 00:00: MOUTH [place] 00 EVERY Medical MORNING , Branch ONE TABLET AT NOON AND 1 TABLET IN THE EVENING GABAPENTIN 2022-0 Yes [id number] TAKE ONE [facility] 800 mg 7-06 [id number] TABLET BY [facility] tablet 00:00: MOUTH [place] 00 EVERY Medical MORNING , Branch ONE TABLET AT NOON AND 1 TABLET IN THE EVENING ferrous 2022-0 2022- No 300mg Take 300 [facility] ers sulfate 300 6-30 06-30 mg by [facility] mg (60 mg 14:41: 00:00 [place] iron[place]5 mL 15 :00 (two) Medical solution times Branch daily. ferrous 2022-0 2022- No 300mg Take 300 [facility] ers sulfate 300 6-30 06-30 mg by [facility] mg (60 mg 14:41: 00:00 [place] iron)/5 mL 15 :00 (two) Medical solution times [place] daily. omeprazole 2022-0 Yes [id number] Take one [facility] 40 mg 6-30 capsule by [facility] capsule 00:00: mouth [place] 00 twice Medical daily for Branch one week then one capsule by mouth daily omeprazole 2022-0 Yes [id number] Take one [facility] 40 mg 6-30 capsule by [facility] capsule 00:00: mouth [place] 00 twice Medical daily for Branch one week then one capsule by mouth daily omeprazole 2022-0 Yes [id number] Take one [facility] 40 mg 6-30 capsule by [facility] capsule 00:00: mouth [place] 00 twice Medical daily for Branch one week then one capsule by mouth daily omeprazole 2022-0 Yes [id number] Take one [facility] 40 mg 6-30 capsule by [facility] capsule 00:00: mouth [place] 00 twice Medical daily for Branch one week then one capsule by mouth daily omeprazole 3-0 Yes [id number] Take one [facility] 40 mg 6-30 capsule by [facility] capsule 00:00: mouth [place] 00 twice Medical daily for Branch one week then one capsule by mouth daily omeprazole 2022-0 Yes [id number] Take one [facility] 40 mg 6-30 capsule by [facility] capsule 00:00: mouth [place] 00 twice Medical daily for Branch one week then one capsule by mouth daily omeprazole 2022-0 Yes [id number] Take one [facility] 40 mg 6-30 capsule by [facility] capsule 00:00: mouth [place] 00 twice Medical daily for Branch one week then one capsule by mouth daily omeprazole 2023-0 Yes [id number] Take one [facility] 40 mg 6-30 capsule by [facility] capsule 00:00: mouth [place] 00 twice Medical daily for Branch one week then one capsule by mouth daily omeprazole 2023-0 Yes [id number] Take one [facility] 40 mg 6-30 capsule by [facility] capsule 00:00: mouth [place] 00 twice Medical daily for Branch one week then one capsule by mouth daily omeprazole 2023-0 Yes [id number] Take one [facility] 40 mg 6-30 capsule by [facility] capsule 00:00: mouth [place] 00 twice Medical daily for Branch one week then one capsule by mouth daily omeprazole 2023-0 Yes [id number] Take one [facility] 40 mg 6-30 capsule by [facility] capsule 00:00: mouth [place] 00 twice Medical daily for Branch one week then one capsule by mouth daily omeprazole 2023-0 Yes [id number] Take one [facility] 40 mg 6-30 capsule by [facility] capsule 00:00: mouth [place] 00 twice Medical daily for Branch one week then one capsule by mouth daily omeprazole 2023-0 Yes [id number] Take one [facility] 40 mg 6-30 capsule by [facility] capsule 00:00: mouth [place] 00 twice Medical daily for Branch one week then one capsule by mouth daily omeprazole 2023-0 Yes [id number] Take one [facility] 40 mg 6-30 capsule by [facility] capsule 00:00: mouth [place] 00 twice Medical daily for Branch one week then one capsule by mouth daily omeprazole 2023-0 Yes [id number] Take one [facility] 40 mg 6-30 capsule by [facility] of capsule 00:00: mouth [place] 00 twice Medical daily for Branch one week then one capsule by mouth daily omeprazole 2023-0 Yes [id number] Take one [facility] 40 mg 6-30 capsule by [facility] of capsule 00:00: mouth [place] 00 twice Medical daily for Branch one week then one capsule by mouth daily omeprazole 2023-0 Yes [id number] Take one [facility] 40 mg 6-30 capsule by [facility] of capsule 00:00: mouth [place] 00 twice Medical daily for Branch one week then one capsule by mouth daily omeprazole 2023-0 Yes [id number] Take one [facility] 40 mg 6-30 capsule by [facility] of capsule 00:00: mouth [place] 00 twice Medical daily for Branch one week then one capsule by mouth daily omeprazole 2023-0 Yes [id number] Take one [facility] 40 mg 6-30 capsule by [facility] of capsule 00:00: mouth [place] 00 twice Medical daily for Branch one week then one capsule by mouth daily omeprazole 2023-0 Yes [id number] Take one [facility] 40 mg 6-30 capsule by [facility] of capsule 00:00: mouth [place] 00 twice Medical daily for Branch one week then one capsule by mouth daily omeprazole 2023-0 Yes [id number] Take one [facility] 40 mg 6-30 capsule by [facility] of capsule 00:00: mouth [place] 00 twice Medical daily for Branch one week then one capsule by mouth daily omeprazole 2023-0 Yes [id number] Take one [facility] 40 mg 6-30 capsule by [facility] of capsule 00:00: mouth [place] 00 twice Medical daily for Branch one week then one capsule by mouth daily omeprazole 2023-0 Yes [id number] Take one [facility] 40 mg 6-30 capsule by [facility] of capsule 00:00: mouth [place] 00 twice Medical daily for Branch one week then one capsule by mouth daily omeprazole 2023-0 Yes [id number] Take one [facility] 40 mg 6-30 capsule by [facility] of capsule 00:00: mouth [place] 00 twice Medical daily for Branch one week then one capsule by mouth daily omeprazole 2023-0 Yes [id number] Take one [facility] 40 mg 6-30 capsule by [facility] of capsule 00:00: mouth [place] 00 twice Medical daily for Branch one week then one capsule by mouth daily omeprazole 2023-0 Yes [id number] Take one [facility] 40 mg 6-30 capsule by [facility] of capsule 00:00: mouth [place] 00 twice Medical daily for Branch one week then one capsule by mouth daily omeprazole 2023-0 Yes [id number] Take one [facility] 40 mg 6-30 capsule by [facility] of capsule 00:00: mouth [place] 00 twice Medical daily for Branch one week then one capsule by mouth daily omeprazole 2023-0 Yes [id number] Take one [facility] 40 mg 6-30 capsule by [facility] of capsule 00:00: mouth [place] 00 twice Medical daily for Branch one week then one capsule by mouth daily omeprazole 2023-0 Yes [id number] Take one [facility] 40 mg 6-30 capsule by [facility] of capsule 00:00: mouth [place] 00 twice Medical daily for Branch one week then one capsule by mouth daily omeprazole 2023-0 Yes [id number] Take one [facility] 40 mg 6-30 capsule by [facility] of capsule 00:00: mouth [place] 00 twice Medical daily for Branch one week then one capsule by mouth daily omeprazole 2023-0 Yes [id number] Take one [facility] 40 mg 6-30 capsule by [facility] of capsule 00:00: mouth [place] 00 twice Medical daily for Branch one week then one capsule by mouth daily omeprazole 2023-0 Yes [id number] Take one [facility] 40 mg 6-30 capsule by [facility] capsule 00:00: mouth [place] 00 twice Medical daily for Branch one week then one capsule by mouth daily omeprazole 2023-0 Yes [id number] Take one [facility] 40 mg 6-30 capsule by [facility] of capsule 00:00: mouth [place] 00 twice Medical daily for Branch one week then one capsule by mouth daily omeprazole 2023-0 Yes [id number] Take one [facility] 40 mg 6-30 capsule by [facility] of capsule 00:00: mouth [place] 00 twice Medical daily for Branch one week then one capsule by mouth daily omeprazole 2023-0 Yes [id number] Take one [facility] 40 mg 6-30 capsule by [facility] of capsule 00:00: mouth [place] 00 twice Medical daily for Branch one week then one capsule by mouth daily omeprazole 2023-0 Yes [id number] Take one [facility] 40 mg 6-30 capsule by [facility] of capsule 00:00: mouth [place] 00 twice Medical daily for Branch one week then one capsule by mouth daily omeprazole 2023-0 Yes [id number] Take one [facility] 40 mg 6-30 capsule by [facility] of capsule 00:00: mouth [place] 00 twice Medical daily for Branch one week then one capsule by mouth daily levothyroxi 2023-0 Yes [id number] 150ug Take 1 [facility] ne 150 mcg 5-31 tablet by [facility] of tablet 00:00: mouth [place] 00 every Medical morning. Branch levothyroxi 3-0 Yes [id number] 150ug Take 1 [facility] ne 150 mcg 5-31 tablet by [facility] of tablet 00:00: mouth [place] 00 every Medical morning. Branch levothyroxi 3-0 Yes [id number] 150ug Take 1 [facility] ne 150 mcg 5-31 tablet by [facility] of tablet 00:00: mouth [place] 00 every Medical morning. Branch levothyroxi 2023-0 Yes [id number] 150ug Take 1 [facility] ne 150 mcg 5-31 tablet by [facility] of tablet 00:00: mouth [place] 00 every Medical morning. Branch levothyroxi 2022-0 Yes [id number] 150ug Take 1 [facility] ne 150 mcg 5-31 tablet by [facility] of tablet 00:00: mouth [place] 00 every Medical morning. Branch levothyroxi 3-0 Yes [id number] 150ug Take 1 [facility] ne 150 mcg 5-31 tablet by [facility] of tablet 00:00: mouth [place] 00 every Medical morning. Branch levothyroxi 3-0 Yes [id number] 150ug Take 1 [facility] ne 150 mcg 5-31 tablet by [facility] of tablet 00:00: mouth [place] 00 every Medical morning. Branch levothyroxi 3-0 Yes [id number] 150ug Take 1 [facility] ne 150 mcg 5-31 tablet by [facility] of tablet 00:00: mouth [place] 00 every Medical morning. Branch levothyroxi 3-0 Yes [id number] 150ug Take 1 [facility] ne 150 mcg 5-31 tablet by [facility] of tablet 00:00: mouth [place] 00 every Medical morning. Branch levothyroxi 2022-0 Yes [id number] 150ug Take 1 [facility] ne 150 mcg 5-31 tablet by [facility] of tablet 00:00: mouth [place] 00 every Medical morning. Branch levothyroxi 2022-0 Yes [id number] 150ug Take 1 [facility] ne 150 mcg 5-31 tablet by [facility] of tablet 00:00: mouth [place] 00 every Medical morning. Branch levothyroxi 3-0 Yes [id number] 150ug Take 1 [facility] ne 150 mcg 5-31 tablet by [facility] of tablet 00:00: mouth [place] 00 every Medical morning. Branch levothyroxi 3-0 Yes [id number] 150ug Take 1 [facility] ne 150 mcg 5-31 tablet by [facility] of tablet 00:00: mouth [place] 00 every Medical morning. Branch levothyroxi 3-0 Yes [id number] 150ug Take 1 [facility] ne 150 mcg 5-31 tablet by [facility] of tablet 00:00: mouth [place] 00 every Medical morning. Branch levothyroxi 3-0 Yes [id number] 150ug Take 1 [facility] ne 150 mcg 5-31 tablet by [facility] of tablet 00:00: mouth [place] 00 every Medical morning. Branch levothyroxi 2023-0 Yes [id number] 150ug Take 1 [facility] ne 150 mcg 5-31 tablet by [facility] of tablet 00:00: mouth [place] 00 every Medical morning. Branch levothyroxi 2022-0 Yes [id number] 150ug Take 1 [facility] ne 150 mcg 5-31 tablet by [facility] of tablet 00:00: mouth [place] 00 every Medical morning. Branch levothyroxi 2022-0 Yes [id number] 150ug Take 1 [facility] ne 150 mcg 5-31 tablet by [facility] of tablet 00:00: mouth [place] 00 every Medical morning. Branch levothyroxi 3-0 Yes [id number] 150ug Take 1 [facility] ne 150 mcg 5-31 tablet by [facility] of tablet 00:00: mouth [place] 00 every Medical morning. Branch levothyroxi 2022-0 Yes [id number] 150ug Take 1 [facility] ne 150 mcg 5-31 tablet by [facility] of tablet 00:00: mouth [place] 00 every Medical morning. Branch levothyroxi 2022-0 Yes [id number] 150ug Take 1 [facility] ne 150 mcg 5-31 tablet by [facility] of tablet 00:00: mouth [place] 00 every Medical morning. Branch levothyroxi 2022-0 Yes [id number] 150ug Take 1 [facility] ne 150 mcg 5-31 tablet by [facility] of tablet 00:00: mouth [place] 00 every Medical morning. Branch levothyroxi 2022-0 Yes [id number] 150ug Take 1 [facility] ne 150 mcg 5-31 tablet by [facility] of tablet 00:00: mouth [place] 00 every Medical morning. Branch levothyroxi 2022-0 Yes [id number] 150ug Take 1 [facility] ne 150 mcg 5-31 tablet by [facility] of tablet 00:00: mouth [place] 00 every Medical morning. Branch levothyroxi 2022-0 Yes [id number] 150ug Take 1 [facility] ne 150 mcg 5-31 tablet by [facility] of tablet 00:00: mouth [place] 00 every Medical morning. Branch levothyroxi 3-0 Yes [id number] 150ug Take 1 [facility] ne 150 mcg 5-31 tablet by [facility] of tablet 00:00: mouth [place] 00 every Medical morning. Branch levothyroxi 3-0 Yes [id number] 150ug Take 1 [facility] ne 150 mcg 5-31 tablet by [facility] of tablet 00:00: mouth [place] 00 every Medical morning. Branch levothyroxi 2022-0 Yes [id number] 150ug Take 1 [facility] ne 150 mcg 5-31 tablet by [facility] of tablet 00:00: mouth [place] 00 every Medical morning. Branch levothyroxi 2022-0 Yes [id number] 150ug Take 1 [facility] ne 150 mcg 5-31 tablet by [facility] of tablet 00:00: mouth [place] 00 every Medical morning. Branch levothyroxi 2022-0 Yes [id number] 150ug Take 1 [facility] ne 150 mcg 5-31 tablet by [facility] of tablet 00:00: mouth [place] 00 every Medical morning. Branch levothyroxi 2022-0 Yes [id number] 150ug Take 1 [facility] ne 150 mcg 5-31 tablet by [facility] of tablet 00:00: mouth [place] 00 every Medical morning. Branch levothyroxi 2022-0 Yes [id number] 150ug Take 1 [facility] ne 150 mcg 5-31 tablet by [facility] of tablet 00:00: mouth [place] 00 every Medical morning. Branch levothyroxi 2022-0 Yes [id number] 150ug Take 1 [facility] ne 150 mcg 5-31 tablet by [facility] of tablet 00:00: mouth [place] 00 every Medical morning. Branch levothyroxi 2022-0 Yes [id number] 150ug Take 1 [facility] ne 150 mcg 5-31 tablet by [facility] of tablet 00:00: mouth [place] 00 every Medical morning. Branch levothyroxi 2022-0 Yes [id number] 150ug Take 1 [facility] ne 150 mcg 5-31 tablet by [facility] of tablet 00:00: mouth [place] 00 every Medical morning. Branch levothyroxi 2022-0 Yes [id number] 150ug Take 1 [facility] ne 150 mcg 5-31 tablet by [facility] of tablet 00:00: mouth [place] 00 every Medical morning. Branch levothyroxi 2022-0 Yes [id number] 150ug Take 1 [facility] ne 150 mcg 5-31 tablet by [facility] of tablet 00:00: mouth [place] 00 every Medical morning. Branch levothyroxi 2022-0 Yes [id number] 150ug Take 1 [facility] ne 150 mcg 5-31 tablet by [facility] of tablet 00:00: mouth [place] 00 every Medical morning. Branch levothyroxi 2022-0 Yes [id number] 150ug Take 1 [facility] ne 150 mcg 5-31 tablet by [facility] of tablet 00:00: mouth [place] 00 every Medical morning. Branch levothyroxi 2022-0 Yes [id number] 150ug Take 1 [facility] ne 150 mcg 5-31 tablet by [facility] of tablet 00:00: mouth [place] 00 every Medical morning. Branch levothyroxi 2023-0 Yes [id number] 150ug Take 1 [facility] ne 150 mcg 5-31 tablet by [facility] of tablet 00:00: mouth [place] 00 every Medical morning. Branch levothyroxi 2023-0 Yes [id number] 150ug Take 1 [facility] ne 150 mcg 5-31 tablet by [facility] of tablet 00:00: mouth [place] 00 every Medical morning. Branch levothyroxi 2023-0 Yes [id number] 150ug Take 1 [facility] ne 150 mcg 5-31 tablet by [facility] of tablet 00:00: mouth [place] 00 every Medical morning. Branch GABAPENTIN 2023-0 Yes [id number] TAKE ONE [facility] 800 mg 5-03 [id number] TABLET BY [facility] tablet 00:00: MOUTH [place] 00 EVERY Medical MORNING , Branch ONE TABLET AT NOON AND 1 TABLET IN THE EVENING GABAPENTIN 2023-0 Yes [id number] TAKE ONE [facility] 800 mg 5-03 [id number] TABLET BY [facility] tablet 00:00: MOUTH [place] 00 EVERY Medical MORNING , Branch ONE TABLET AT NOON AND 1 TABLET IN THE EVENING GABAPENTIN 2023-0 Yes [id number] TAKE ONE [facility] 800 mg 5-03 [id number] TABLET BY [facility] tablet 00:00: MOUTH [place] 00 EVERY Medical MORNING , Branch ONE TABLET AT NOON AND 1 TABLET IN THE EVENING GABAPENTIN 2023-0 Yes [id number] TAKE ONE [facility] 800 mg 5-03 [id number] TABLET BY [facility] tablet 00:00: MOUTH [place] 00 EVERY Medical MORNING , Branch ONE TABLET AT NOON AND 1 TABLET IN THE EVENING GABAPENTIN 2023-0 Yes [id number] TAKE ONE [facility] 800 mg 5-03 [id number] TABLET BY [facility] of tablet 00:00: MOUTH [place] 00 EVERY Medical MORNING , Branch ONE TABLET AT NOON AND 1 TABLET IN THE EVENING GABAPENTIN 2023-0 Yes [id number] TAKE ONE [facility] 800 mg 5-03 [id number] TABLET BY [facility] of tablet 00:00: MOUTH [place] 00 EVERY Medical MORNING , Branch ONE TABLET AT NOON AND 1 TABLET IN THE EVENING GABAPENTIN 2023-0 Yes [id number] TAKE ONE [facility] 800 mg 5-03 [id number] TABLET BY [facility] of tablet 00:00: MOUTH [place] 00 EVERY Medical MORNING , Branch ONE TABLET AT NOON AND 1 TABLET IN THE EVENING GABAPENTIN 2023-0 Yes [id number] TAKE ONE [facility] 800 mg 5-03 [id number] TABLET BY [facility] of tablet 00:00: MOUTH [place] 00 EVERY Medical MORNING , Branch ONE TABLET AT NOON AND 1 TABLET IN THE EVENING GABAPENTIN 2023-0 Yes [id number] TAKE ONE [facility] 800 mg 5-03 [id number] TABLET BY [facility] of tablet 00:00: MOUTH [place] 00 EVERY Medical MORNING , Branch ONE TABLET AT NOON AND 1 TABLET IN THE EVENING GABAPENTIN 2023-0 Yes [id number] TAKE ONE [facility] 800 mg 5-03 [id number] TABLET BY [facility] of tablet 00:00: MOUTH [place] 00 EVERY Medical MORNING , Branch ONE TABLET AT NOON AND 1 TABLET IN THE EVENING GABAPENTIN 2023-0 Yes [id number] TAKE ONE [facility] 800 mg 5-03 [id number] TABLET BY [facility] of tablet 00:00: MOUTH [place] 00 EVERY Medical MORNING , Branch ONE TABLET AT NOON AND 1 TABLET IN THE EVENING GABAPENTIN 2023-0 Yes [id number] TAKE ONE [facility] 800 mg 5-03 [id number] TABLET BY [facility] of tablet 00:00: MOUTH [place] 00 EVERY Medical MORNING , Branch ONE TABLET AT NOON AND 1 TABLET IN THE EVENING GABAPENTIN 2023-0 Yes [id number] TAKE ONE [facility] 800 mg 5-03 [id number] TABLET BY [facility] of tablet 00:00: MOUTH [place] 00 EVERY Medical MORNING , Branch ONE TABLET AT NOON AND 1 TABLET IN THE EVENING GABAPENTIN 2023-0 2023- No [id number] TAKE ONE [facility] 800 mg 5-03 07-06 [id number] TABLET BY ity o f tablet 00:00: 00:00 MOUTH [place] 00 :00 EVERY Medical MORNING , Branch ONE TABLET AT NOON AND 1 TABLET IN THE EVENING levothyroxi 2021- Yes [id number] 150ug Take 1 [facility] ne 150 mcg 1-07 tablet by [facility] of tablet 00:00: mouth [place] 00 every Medical morning. Branch levothyroxi 2021- Yes [id number] 150ug Take 1 [facility] ne 150 mcg 1-07 tablet by [facility] of tablet 00:00: mouth [place] 00 every Medical morning. Branch levothyroxi 2021- Yes [id number] 150ug Take 1 [facility] ne 150 mcg 1-07 tablet by [facility] of tablet 00:00: mouth [place] 00 every Medical morning. Branch levothyroxi 2021- Yes [id number] 150ug Take 1 [facility] ne 150 mcg 1-07 tablet by [facility] of tablet 00:00: mouth [place] 00 every Medical morning. Branch levothyroxi 2021-04 Yes [id number] 150ug Take 1 [facility] ne 150 mcg 1-07 tablet by [facility] of tablet 00:00: mouth [place] 00 every Medical morning. Branch levothyroxi 2021-04- No [id number] 150ug Take 1 [facility] ne 150 mcg 04-07- tablet by [facility] of tablet 00:00: 00:00 mouth [place] 00 :00 every Medical morning. Branch levothyroxi 2021-04- No [id number] 150ug Take 1 [facility] ne 150 mcg -10 03-31 tablet by [facility] of tablet 00:00: 00:00 mouth [place] 00 :00 every Medical morning. Branch levothyroxi 2021-04- No [id number] 150ug Take 1 [facility] ne 150 mcg -10 03- tablet by [facility] of tablet 00:00: 00:00 mouth [place] 00 :00 every Medical morning. Branch levothyroxi 2021-04- No [id number] 150ug Take 1 [facility] ne 150 mcg -10 03- tablet by [facility] of tablet 00:00: 00:00 mouth [place] 00 :00 every Medical morning. Branch levothyroxi 2021-04- No [id number] 150ug Take 1 [facility] ne 150 mcg 04-07-31 tablet by [facility] of tablet 00:00: 00:00 mouth [place] 00 :00 every Medical morning. Branch levothyroxi 2021-04 Yes [id number] TAKE 1 [facility] ne 137 mcg 1-04 TABLET BY [facility] of tablet 00:00: MOUTH [place] 00 EVERY Medical OTHER DAY Branch levothyroxi 2021-04 Yes [id number] TAKE 1 [facility] ne 137 mcg 1-04 TABLET BY [facility] of tablet 00:00: MOUTH [place] 00 EVERY Medical OTHER DAY Branch levothyroxi 2021-04- No [id number] TAKE 1 [facility] 137 mcg 1-04 11-07 TABLET BY ity of tablet 00:00: 00:00 MOUTH [place] 00 :00 EVERY Medical OTHER DAY Branch levothyroxi 2021-04- No [id number] TAKE 1 [facility] ne 137 mcg 1-04 11-07 TABLET BY ity of tablet 00:00: 00:00 MOUTH [place] 00 :00 EVERY Medical OTHER DAY Branch levothyroxi 2021-04 Yes [id number] TAKE 1 [facility] ne 137 mcg 0-11 TABLET BY ity of tablet 00:00: MOUTH [place] 00 EVERY Medical OTHER DAY Branch levothyroxi 2021-04 Yes [id number] TAKE 1 [facility] ne 137 mcg 0-11 TABLET BY ity of tablet 00:00: MOUTH [place] 00 EVERY Medical OTHER DAY Branch levothyroxi 2021-04- No [id number] TAKE 1 [facility] ne 137 mcg 0-11 11-04 TABLET BY ity of tablet 00:00: 00:00 MOUTH [place] 00 :00 EVERY Medical OTHER DAY Branch levothyroxi 2021-04- No [id number] TAKE 1 [facility] ne 137 mcg 0-11 11-04 TABLET BY ity of tablet 00:00: 00:00 MOUTH [place] 00 :00 EVERY Medical OTHER DAY Branch albuterol 2021- No 2.5mg Inhale 2.5 [facility] 2.5 mg /3 8-29 08-29 mg every 4 ity of mL (0.083 11:45: 00:00 (four) [place] %) 37 :00 hours as Medical nebulizer needed for Bran ch solution Wheezing, Shortness of Breath or Bronchospa sm. ketoconazol Yes [id number] Apply to [facility] e 2 % 8-29 area(s) ity of shampoo 00:00: [place] 00 as needed Medical for Branch Itching. escitalopra Yes [id number] 20mg Take 1 [facility] m oxalate 8-29 tablet by ity o f 20 mg 00:00: mouth in [place] tablet 00 the Medical morning. Branch pantoprazol Yes [id number] 40mg Take 20 mL [facility] e 2 [...] the evening. Take with meals. ARIPiprazol Yes [id number] 5mg Take 1 [facility] e 5 mg [...] Breath or Bronchospa sm. gabapentin 0 Yes [id number] 800mg Take 1 [facility] 800 mg 8-29 [id number] tablet by ity of tablet 00:00: mouth in [place] 00 the Medical morning Branch and 1 tablet at noon and 1 tablet in the evening. ketoconazol Yes [id number] Apply to [facility] e 2 % 8-29 area(s) ity of shampoo 00:00: [place] 00 as needed Medical for Branch Itching. escitalopra Yes [id number] 20mg Take 1 [facility] m oxalate 8-29 tablet by ity o f 20 mg 00:00: mouth in [place] tablet 00 the Medical morning. Branch pantoprazol 0 Yes [id number] 40mg Take 20 mL [facility] e 2 mg/mL 8-29 by mouth ity of oral 00:00: in the [place] suspension 00 morning. Medic al Branch lipase-prot Yes 1{capsu Take 1 U nivers ease-amylas 8-29 le} capsule by it y of e (CREON) 00:00: [place] 12,000-38,0 00 the Medical 00 -60,000 morning Branch unit and 1 capsule capsule at noon and 1 capsule in the evening. Take with meals. ARIPiprazol 0 Yes [id number] 5mg Take 1 [facility] e 5 mg 8-29 tablet by ity of tablet 00:00: mouth in [place] 00 the Medical morning. Branch albuterol Yes 2.5mg Inhale 3 [facility] vers 2.5 mg /3 8-29 mL every 4 ity of mL (0.083 00:00: (four) [place] %) 00 hours as Medical nebulizer needed for Bran ch solution Wheezing, Shortness of Breath or Bronchospa sm. gabapentin 2021-0 Yes [id number] 800mg Take 1 [facility] 800 mg 8-29 [id number] tablet by ity of tablet 00:00: mouth in [place] 00 the Medical morning Branch and 1 tablet at noon and 1 tablet in the evening. ketoconazol Yes [id number] Apply to [facility] e 2 % 8-29 area(s) ity of shampoo 00:00: [place] 00 as needed Medical for Branch Itching. escitalopra Yes [id number] 20mg Take 1 [facility] m oxalate 8-29 tablet by ity o f 20 mg 00:00: mouth in [place] tablet 00 the Medical morning. Branch pantoprazol Yes [id number] 40mg Take 20 mL [facility] e 2 mg/mL 8-29 by mouth ity of oral 00:00: in the [place] suspension 00 morning. Medic al Branch lipase-prot Yes 1{capsu Take 1 U nivers ease-amylas 8-29 le} capsule by it y of e (CREON) 00:00: mouth in [facility] s 12,000-38,0 00 the Medical 00 -60,000 morning Branch unit and 1 capsule capsule at noon and 1 capsule in the evening. Take with meals. ARIPiprazol Yes [id number] 5mg Take 1 [facility] e 5 mg 8-29 tablet by ity of tablet 00:00: mouth in [place] 00 the Medical morning. Branch albuterol Yes 2.5mg Inhale 3 [facility] vers 2.5 mg /3 8-29 mL every 4 ity of mL (0.083 00:00: (four) [place] %) 00 hours as Medical nebulizer needed for Bran ch solution Wheezing, Shortness of Breath or Bronchospa sm. gabapentin Yes [id number] 800mg Take 1 [facility] 800 mg 8-29 [id number] tablet by ity of tablet 00:00: mouth in [place] 00 the Medical morning Branch and 1 tablet at noon and 1 tablet in the evening. ketoconazol Yes [id number] Apply to [facility] e 2 % 8-29 area(s) ity of shampoo 00:00: [place] 00 as needed Medical for Branch Itching. escitalopra Yes [id number] 20mg Take 1 [facility] m oxalate 8-29 tablet by ity o f 20 mg 00:00: mouth in [place] tablet 00 the Medical morning. Branch pantoprazol Yes [id number] 40mg Take 20 mL [facility] e 2 mg/mL 8-29 by mouth ity of oral 00:00: in the [place] suspension 00 morning. Medic al Branch lipase-prot Yes 1{capsu Take 1 U nivers ease-amylas 8-29 le} capsule by it y of e (CREON) 00:00: mouth in [facility] ,0 00 the Medical morning Branch unit and 1 capsule capsule at noon and 1 capsule in the evening. Take with meals. ARIPiprazol Yes [id number] 5mg Take 1 [facility] e 5 mg 8-29 tablet by ity of tablet 00:00: mouth in [place] 00 the morning. Branch albuterol Yes 2.5mg Inhale 3 Uni vers 2.5 mg /3 8-29 mL every 4 ity of mL (0.083 00:00: (four) [place] %) 00 hours as Medical nebulizer needed for Bran ch solution Wheezing, Shortness of Breath or Bronchospa sm. gabapentin Yes [id number] 800mg Take 1 [facility] 800 mg 8-29 [id number] tablet by ity of tablet 00:00: mouth in [place] the Medical morning Branch and 1 tablet at noon and 1 tablet in the evening. ketoconazol Yes [id number] Apply to [facility] e 2 % 8-29 area(s) ity of shampoo 00:00: [place] 00 as needed Medical for Branch Itching. escitalopra Yes [id number] 20mg Take 1 [facility] m oxalate 8-29 tablet by ity o f 20 mg 00:00: mouth in [place] tablet 00 the Medical morning. Branch pantoprazol Yes [id number] 40mg Take 20 mL [facility] e 2 mg/mL 8-29 by mouth ity of oral 00:00: in the [place] suspension 00 morning. Medic al Branch lipase-prot Yes 1{capsu Take 1 U nivers ease-amylas 8-29 le} capsule by it y of e (CREON) 00:00: mouth in [facility] -,0 00 the Medical morning Branch unit and 1 capsule capsule at noon and 1 capsule in the evening. Take with meals. ARIPiprazol Yes [id number] 5mg Take 1 [facility] e 5 mg 8-29 tablet by ity of tablet 00:00: mouth in [place] 00 the Medical morning. Branch albuterol Yes 2.5mg Inhale 3 Uni vers 2.5 mg /3 8-29 mL every 4 ity of mL (0.083 00:00: (four) [place] %) 00 hours as Medical nebulizer needed for Bran ch solution Wheezing, Shortness of Breath or Bronchospa sm. gabapentin Yes [id number] 800mg Take 1 [facility] 800 mg 8-29 [id number] tablet by ity of tablet 00:00: mouth in [place] 00 the Medical morning Branch and 1 tablet at noon and 1 tablet in the evening. ketoconazol Yes [id number] Apply to [facility] e 2 % 8-29 area(s) ity of shampoo 00:00: [place] 00 as needed Medical for Branch Itching. escitalopra Yes [id number] 20mg Take 1 [facility] m oxalate 8-29 tablet by ity o f 20 mg 00:00: mouth in [facility] 00 the Medical morning. Branch pantoprazol Yes [id number] 40mg Take 20 mL [facility] e 2 [...] the evening. Take with meals. ARIPiprazol Yes [id number] 5mg Take 1 [facility] e 5 mg 8-29 tablet by ity of tablet 00:00: mouth in [place] 00 the Medical morning. Branch albuterol Yes 2.5mg Inhale 3 Uni vers 2.5 mg /3 8-29 mL every 4 ity of mL (0.083 00:00: (four) [place] %) 00 hours as Medical nebulizer needed for Bran ch solution Wheezing, Shortness of Breath or Bronchospa sm. gabapentin Yes [id number] 800mg Take 1 [facility] 800 mg 8-29 [id number] tablet by ity of tablet 00:00: mouth in [place] 00 the Medical morning Branch and 1 tablet at noon and 1 tablet in the evening. ketoconazol Yes [id number] Apply to [facility] e 2 % 8-29 area(s) ity of shampoo 00:00: once daily [place] 00 as needed Medical for Branch Itching. escitalopra Yes [id number] 20mg Take 1 [facility] m oxalate 8-29 tablet by ity o f 20 mg 00:00: mouth in [place] tablet 00 the Medical morning. Branch pantoprazol Yes [id number] 40mg Take 20 mL [facility] e 2 mg/mL 8-29 by mouth ity of oral 00:00: in the [place] suspension 00 morning. Medic al Branch lipase-prot Yes 1{capsu Take 1 U nivers ease-amylas 8-29 le} capsule by it y of e (CREON) 00:00: mouth in [facility] s 12,000-38,0 00 the Medical 00 -60,000 morning Branch unit and 1 capsule capsule at noon and 1 capsule in the evening. Take with meals. ARIPiprazol Yes [id number] 5mg Take 1 [facility] e 5 mg 8-29 tablet by ity of tablet 00:00: mouth in [place] 00 the Medical morning. Branch albuterol Yes 2.5mg Inhale 3 Uni vers 2.5 mg /3 8-29 mL every 4 ity of mL (0.083 00:00: (four) [place] %) 00 hours as Medical nebulizer needed for Bran ch solution Wheezing, Shortness of Breath or Bronchospa sm. gabapentin Yes [id number] 800mg Take 1 [facility] 800 mg 8-29 [id number] tablet by ity of tablet 00:00: mouth in [place] 00 the Medical morning Branch and 1 tablet at noon and 1 tablet in the evening. ketoconazol Yes [id number] Apply to [facility] e 2 % 8-29 area(s) ity of shampoo 00:00: [place] daily [place] 00 as needed Medical for Branch Itching. escitalopra Yes [id number] 20mg Take 1 [facility] m oxalate 8-29 tablet by ity o f 20 mg 00:00: mouth in [place] tablet 00 the Medical morning. Branch pantoprazol Yes [id number] 40mg Take 20 mL [facility] e 2 [...] the evening. Take with meals. ARIPiprazol Yes [id number] 5mg Take 1 [facility] e 5 mg 8-29 tablet by ity of tablet 00:00: mouth in [place] 00 the morning. Branch albuterol Yes 2.5mg Inhale 3 [facility] vers 2.5 mg /3 8-29 mL every 4 ity of mL (0.083 00:00: (four) [place] %) 00 hours as Medical nebulizer needed for Bran ch solution Wheezing, Shortness of Breath or Bronchospa sm. gabapentin Yes [id number] 800mg Take 1 [facility] 800 mg 8-29 [id number] tablet by ity of tablet 00:00: mouth in [place] 00 the Medical morning Branch and 1 tablet at noon and 1 tablet in the evening. ketoconazol Yes [id number] Apply to [facility] e 2 % 8-29 area(s) ity of shampoo 00:00: [place] daily [place] 00 as needed Medical for Branch Itching. escitalopra Yes [id number] 20mg Take 1 [facility] m oxalate 8-29 tablet by ity o f 20 mg 00:00: mouth in [place] tablet 00 the Medical morning. Branch pantoprazol Yes [id number] 40mg Take 20 mL [facility] e 2 [...] the evening. Take with meals. ARIPiprazol Yes [id number] 5mg Take 1 [facility] e 5 mg 8-29 tablet by ity of tablet 00:00: mouth in [place] 00 the Medical morning. Branch albuterol Yes 2.5mg Inhale 3 Uni vers 2.5 mg /3 8-29 mL every 4 ity of mL (0.083 00:00: (four) [place] %) 00 hours as Medical nebulizer needed for Bran ch solution Wheezing, Shortness of Breath or Bronchospa sm. gabapentin Yes [id number] 800mg Take 1 [facility] 800 mg 8-29 [id number] tablet by ity of tablet 00:00: mouth in [place] 00 the Medical morning Branch and 1 tablet at noon and 1 tablet in the evening. ketoconazol Yes [id number] Apply to [facility] e 2 % 8-29 area(s) ity of shampoo 00:00: once daily [place] 00 as needed Medical for Branch Itching. escitalopra Yes [id number] 20mg Take 1 [facility] m oxalate 8-29 tablet by ity o f 20 mg 00:00: mouth in [place] tablet 00 the Medical morning. Branch pantoprazol Yes [id number] 40mg Take 20 mL [facility] e 2 mg/mL 8-29 by mouth ity of oral 00:00: in the [place] suspension 00 morning. Medic al Branch lipase-prot Yes 1{capsu Take 1 U nivers ease-amylas 8-29 le} capsule by it y of e (CREON) 00:00: mouth in [facility] -,0 00 the Medical morning Branch unit and 1 capsule capsule at noon and 1 capsule in the evening. Take with meals. ARIPiprazol Yes [id number] 5mg Take 1 [facility] e 5 mg 8-29 tablet by ity of tablet 00:00: mouth in [place] 00 the Medical morning. Branch albuterol Yes 2.5mg Inhale 3 Uni vers 2.5 mg /3 8-29 mL every 4 ity of mL (0.083 00:00: (four) [place] %) 00 hours as Medical nebulizer needed for Bran ch solution Wheezing, Shortness of Breath or Bronchospa sm. gabapentin Yes [id number] 800mg Take 1 [facility] 800 mg 8-29 [id number] tablet by ity of tablet 00:00: mouth in [place] 00 the Medical morning Branch and 1 tablet at noon and 1 tablet in the evening. ketoconazol Yes [id number] Apply to [facility] e 2 % 8-29 area(s) ity of shampoo 00:00: [place] daily [place] 00 as needed Medical for Branch Itching. escitalopra Yes [id number] 20mg Take 1 [facility] m oxalate 8-29 tablet by ity o f 20 mg 00:00: mouth in [place] tablet 00 the Medical morning. Branch pantoprazol Yes [id number] 40mg Take 20 mL [facility] e 2 mg/mL 8-29 by mouth ity of oral 00:00: in the [place] suspension 00 morning. Medic al Branch lipase-prot Yes 1{capsu Take 1 U nivers ease-amylas 8-29 le} capsule by it y of e (CREON) 00:00: mouth [place] 12,000-38,0 00 the Medical 00 -60,000 morning Branch unit and 1 capsule capsule at noon and 1 capsule in the evening. Take with meals. ARIPiprazol Yes [id number] 5mg Take 1 [facility] e 5 mg 8-29 tablet by ity of tablet 00:00: mouth in [place] 00 the Medical morning. Branch albuterol Yes 2.5mg Inhale 3 Uni vers 2.5 mg /3 8-29 mL every 4 ity of mL (0.083 00:00: (four) [place] %) 00 hours as Medical nebulizer needed for Bran ch solution Wheezing, Shortness of Breath or Bronchospa sm. gabapentin Yes [id number] 800mg Take 1 [facility] 800 mg 8-29 [id number] tablet by ity of tablet 00:00: mouth in [place] 00 the Medical morning Branch and 1 tablet at noon and 1 tablet in the evening. ketoconazol 2021- Yes [id number] Apply to [facility] e 2 % 8-29 area(s) ity of shampoo 00:00: once daily [place] 00 as needed Medical for Branch Itching. escitalopra 2021- Yes [id number] 20mg Take 1 [facility] m oxalate 8-29 tablet by ity o f 20 mg 00:00: mouth in [place] tablet 00 the Medical morning. Branch pantoprazol 2021- Yes [id number] 40mg Take 20 mL [facility] e 2 [...] the evening. Take with meals. ARIPiprazol Yes [id number] 5mg Take 1 [facility] e 5 mg 8-29 tablet by ity of tablet 00:00: mouth in [place] 00 the Medical morning. Branch albuterol Yes 2.5mg Inhale 3 Uni vers 2.5 mg /3 8-29 mL every 4 ity of mL (0.083 00:00: (four) [place] %) 00 hours as Medical nebulizer needed for Bran ch solution Wheezing, Shortness of Breath or Bronchospa sm. ketoconazol 2021- Yes [id number] Apply to [facility] e 2 % 8-29 area(s) ity of shampoo 00:00: once daily [place] 00 as needed Medical for Branch Itching. escitalopra 2021- Yes [id number] 20mg Take 1 [facility] m oxalate 8-29 tablet by ity o f 20 mg 00:00: mouth in [place] tablet 00 the Medical morning. Branch pantoprazol Yes [id number] 40mg Take 20 mL [facility] e 2 mg/mL 8-29 by mouth ity of oral 00:00: in the [place] suspension 00 morning. Medic al Branch lipase-prot 2021- Yes 1{capsu Take 1 U nivers ease-amylas 8-29 le} capsule by it y of e (CREON) 00:00: mouth in [facility] -38,0 00 the Medical 60 morning Branch unit and 1 capsule capsule at noon and 1 capsule in the evening. Take with meals. ARIPiprazol Yes [id number] 5mg Take 1 [facility] e 5 mg 8-29 tablet by ity of tablet 00:00: mouth in [place] 00 the Medical morning. Branch albuterol Yes 2.5mg Inhale 3 Uni vers 2.5 mg /3 8-29 mL every 4 ity of mL (0.083 00:00: (four) [place] %) 00 hours as Medical nebulizer needed for Bran ch solution Wheezing, Shortness of Breath or Bronchospa sm. ketoconazol Yes [id number] Apply to [facility] e 2 % 8-29 area(s) ity of shampoo 00:00: [facility] as [facility] Medical for Branch Itching. escitalopra Yes [id number] 20mg Take 1 [facility] m oxalate 8-29 tablet by ity o f 20 mg 00:00: mouth in [place] tablet 00 the Medical morning. Branch pantoprazol Yes [id number] 40mg Take 20 mL [facility] e 2 mg/mL 8-29 by mouth ity of oral 00:00: in the [place] suspension 00 morning. Medic al Branch lipase-prot Yes 1{capsu Take 1 U nivers ease-amylas 8-29 le} capsule by it y of e (CREON) 00:00: mouth in [facility] -38,0 00 the Medical 60 morning Branch unit and 1 capsule capsule at noon and 1 capsule in the evening. Take with meals. ARIPiprazol Yes [id number] 5mg Take 1 [facility] e 5 mg 8-29 tablet by ity of tablet 00:00: mouth in [place] 00 the Medical morning. Branch albuterol Yes 2.5mg Inhale 3 Uni vers 2.5 mg /3 8-29 mL every 4 ity of mL (0.083 00:00: (four) [place] %) 00 hours as Medical nebulizer needed for Bran ch solution Wheezing, Shortness of Breath or Bronchospa sm. ketoconazol Yes [id number] Apply to [facility] e 2 % 8-29 area(s) ity of shampoo 00:00: once daily [place] 00 as needed Medical for Branch Itching. escitalopra Yes [id number] 20mg Take 1 [facility] m oxalate 8-29 tablet by ity o f 20 mg 00:00: mouth in [place] tablet 00 the Medical morning. Branch pantoprazol Yes [id number] 40mg Take 20 mL [facility] e 2 [...] the evening. Take with meals. ARIPiprazol Yes [id number] 5mg Take 1 [facility] e 5 mg 8-29 tablet by ity of tablet 00:00: mouth in [place] 00 the Medical morning. Branch albuterol Yes 2.5mg Inhale 3 Uni vers 2.5 mg /3 8-29 mL every 4 ity of mL (0.083 00:00: (four) [place] %) 00 hours as Medical nebulizer needed for Bran ch solution Wheezing, Shortness of Breath or Bronchospa sm. ketoconazol Yes [id number] Apply to [facility] e 2 % 8-29 area(s) ity of shampoo 00:00: once daily [place] 00 as needed Medical for Branch Itching. escitalopra Yes [id number] 20mg Take 1 [facility] m oxalate 8-29 tablet by ity o f 20 mg 00:00: mouth in [place] tablet 00 the Medical morning. Branch pantoprazol Yes [id number] 40mg Take 20 mL [facility] e 2 mg/mL 8-29 by mouth ity of oral 00:00: in the [place] suspension 00 morning. Medic al Branch lipase-prot Yes 1{capsu Take 1 U nivers ease-amylas 8-29 le} capsule by it y of e (CREON) 00:00: mouth in [facility] -38,0 00 the Medical 60 morning Branch unit and 1 capsule capsule at noon and 1 capsule in the evening. Take with meals. ARIPiprazol Yes [id number] 5mg Take 1 [facility] e 5 mg 8-29 tablet by ity of tablet 00:00: mouth in [place] 00 the Medical morning. Branch albuterol Yes 2.5mg Inhale 3 Uni vers 2.5 mg /3 8-29 mL every 4 ity of mL (0.083 00:00: (four) [place] %) 00 hours as Medical nebulizer needed for Bran ch solution Wheezing, Shortness of Breath or Bronchospa sm. ketoconazol Yes [id number] Apply to [facility] e 2 % 8-29 area(s) ity of shampoo 00:00: [place] daily [place] 00 as needed Medical for Branch Itching. escitalopra Yes [id number] 20mg Take 1 [facility] m oxalate 8-29 tablet by ity o f 20 mg 00:00: mouth in [place] tablet 00 the Medical morning. Branch pantoprazol Yes [id number] 40mg Take 20 mL [facility] e 2 mg/mL 8-29 by mouth ity of oral 00:00: in the [place] suspension 00 morning. Medic al Branch lipase-prot Yes 1{capsu Take 1 U nivers ease-amylas 8-29 le} capsule by it y of e (CREON) 00:00: mouth in [facility] -38,0 00 the Medical 60, morning Branch unit and 1 capsule capsule at noon and 1 capsule in the evening. Take with meals. ARIPiprazol Yes [id number] 5mg Take 1 [facility] e 5 mg 8-29 tablet by ity of tablet 00:00: mouth in [place] 00 the Medical morning. Branch albuterol Yes 2.5mg Inhale 3 Uni vers 2.5 mg /3 8-29 mL every 4 ity of mL (0.083 00:00: (four) [place] %) 00 hours as Medical nebulizer needed for Bran ch solution Wheezing, Shortness of Breath or Bronchospa sm. ketoconazol Yes [id number] Apply to [facility] e 2 % 8-29 area(s) ity of shampoo 00:00: once daily [place] 00 as needed Medical for Branch Itching. escitalopra Yes [id number] 20mg Take 1 [facility] m oxalate 8-29 tablet by ity o f 20 mg 00:00: mouth in [place] tablet 00 the Medical morning. Branch pantoprazol Yes [id number] 40mg Take 20 mL [facility] e 2 [...] evening. Take with meals. ARIPiprazol 0 Yes [id number] 5mg Take 1 [facility] e 5 mg 8-29 tablet by ity of tablet 00:00: mouth in [place] 00 the Medical morning. Branch albuterol Yes 2.5mg Inhale 3 Uni vers 2.5 mg /3 8-29 mL every 4 ity of mL (0.083 00:00: (four) [place] %) 00 hours as Medical nebulizer needed for Bran ch solution Wheezing, Shortness of Breath or Bronchospa sm. ketoconazol Yes [id number] Apply to Univers e 2 % 8-29 area(s) ity of shampoo 00:00: once daily [place] 00 as needed Medical for Branch Itching. escitalopra Yes [id number] 20mg Take 1 [facility] m oxalate 8-29 tablet by ity o f 20 mg 00:00: mouth in [place] tablet 00 the Medical morning. Branch pantoprazol Yes [id number] 40mg Take 20 mL [facility] e 2 mg/mL 8-29 by mouth ity of oral 00:00: in the [place] suspension 00 morning. Medic al Branch lipase-prot Yes 1{capsu Take 1 U nivers ease-amylas 8-29 le} capsule by it y of e (CREON) 00:00: mouth in [facility] -38,0 00 the Medical 60 morning Branch unit and 1 capsule capsule at noon and 1 capsule in the evening. Take with meals. ARIPiprazol Yes [id number] 5mg Take 1 [facility] e 5 mg 8-29 tablet by ity of tablet 00:00: mouth in [place] 00 the Medical morning. Branch albuterol Yes 2.5mg Inhale 3 Uni vers 2.5 mg /3 8-29 mL every 4 ity of mL (0.083 00:00: (four) [place] %) 00 hours as Medical nebulizer needed for Bran ch solution Wheezing, Shortness of Breath or Bronchospa sm. ketoconazol Yes [id number] Apply to Univers e 2 % 8-29 area(s) ity of shampoo 00:00: once daily [facility] 00 as needed Medical for Branch Itching. escitalopra Yes [id number] 20mg Take 1 [facility] m oxalate 8-29 tablet by ity o f 20 mg 00:00: mouth in [place] tablet 00 the Medical morning. Branch pantoprazol Yes [id number] 40mg Take 20 mL [facility] e 2 mg/mL 8-29 by mouth ity of oral 00:00: in the [place] suspension 00 morning. Medic al Branch lipase-prot Yes 1{capsu Take 1 U nivers ease-amylas 8-29 le} capsule by it y of e (CREON) 00:00: mouth in [facility] -38,0 00 the Medical 60 morning Branch unit and 1 capsule capsule at noon and 1 capsule in the evening. Take with meals. ARIPiprazol Yes [id number] 5mg Take 1 [facility] e 5 mg 8-29 tablet by ity of tablet 00:00: mouth in [place] 00 the Medical morning. Branch albuterol Yes 2.5mg Inhale 3 Uni vers 2.5 mg /3 8-29 mL every 4 ity of mL (0.083 00:00: (four) [place] %) 00 hours as Medical nebulizer needed for Bran ch solution Wheezing, Shortness of Breath or Bronchospa sm. ketoconazol Yes [id number] Apply to [facility] e 2 % 8-29 area(s) ity of shampoo 00:00: once daily [place] 00 as needed Medical for Branch Itching. escitalopra Yes [id number] 20mg Take 1 [facility] m oxalate 8-29 tablet by ity o f 20 mg 00:00: mouth in [place] tablet 00 the Medical morning. Branch pantoprazol Yes [id number] 40mg Take 20 mL [facility] e 2 mg/mL 8-29 by mouth ity of oral 00:00: in the [place] suspension 00 morning. Medic al Branch lipase-prot Yes 1{capsu Take 1 U nivers ease-amylas 8-29 le} capsule by it y of e (CREON) 00:00: [place] -[place] 00 the Medical 60000 morning Branch unit and 1 capsule capsule at noon and 1 capsule in the evening. Take with meals. ARIPiprazol Yes [id number] 5mg Take 1 [facility] e 5 mg 8-29 tablet by ity of tablet 00:00: mouth in [place] 00 the Medical morning. Branch albuterol Yes 2.5mg Inhale 3 Uni vers 2.5 mg /3 8-29 mL every 4 ity of mL (0.083 00:00: (four) [place] %) 00 hours as Medical nebulizer needed for Bran ch solution Wheezing, Shortness of Breath or Bronchospa sm. ketoconazol Yes [id number] Apply to Univers e 2 % 8-29 area(s) ity of shampoo 00:00: once daily [place] 00 as needed Medical for Branch Itching. escitalopra Yes [id number] 20mg Take 1 Univers m oxalate 8-29 tablet by ity o f 20 mg 00:00: mouth in [place] tablet 00 the Medical morning. Branch lipase-prot Yes 1{capsu Take 1 U nivers ease-amylas 8-29 le} capsule by it y of e (CREON) 00:00: [place] -38,[place] 00 the Medical -60,000 morning Branch unit and 1 capsule capsule at noon and 1 capsule in the evening. Take with meals. ARIPiprazol Yes [id number] 5mg Take 1 [facility] e 5 mg 8-29 tablet by ity of tablet 00:00: mouth in [place] 00 the Medical morning. Branch albuterol Yes 2.5mg Inhale 3 Uni vers 2.5 mg /3 8-29 mL every 4 ity of mL (0.083 00:00: (four) [place] %) 00 hours as Medical nebulizer needed for Bran ch solution Wheezing, Shortness of Breath or Bronchospa sm. ketoconazol Yes [id number] Apply to Univers e 2 % 8-29 area(s) ity of shampoo 00:00: once daily [place] 00 as needed Medical for Branch Itching. escitalopra Yes [id number] 20mg Take 1 [facility] m oxalate 8-29 tablet by ity o f 20 mg 00:00: mouth in [place] tablet 00 the Medical morning. Branch lipase-prot Yes 1{capsu Take 1 U nivers ease-amylas 8-29 le} capsule by it y of e (CREON) 00:00: [place] 12[place]000-38,[place] 00 the Medical 00 -60,000 morning Branch unit and 1 capsule capsule at noon and 1 capsule in the evening. Take with meals. ARIPiprazol Yes [id number] 5mg Take 1 [facility] e 5 mg 8-29 tablet by ity of tablet 00:00: mouth in [place] 00 the Medical morning. Branch albuterol Yes 2.5mg Inhale 3 Uni vers 2.5 mg /3 8-29 mL every 4 ity of mL (0.083 00:00: (four) [place] %) 00 hours as Medical nebulizer needed for Bran ch solution Wheezing, Shortness of Breath or Bronchospa sm. ketoconazol Yes [id number] Apply to [facility] e 2 % 8-29 area(s) ity of shampoo 00:00[place] 00 as needed Medical for Branch Itching. escitalopra Yes [id number] 20mg Take 1 [facility] m oxalate 8-29 tablet by ity o f 20 mg 00:00: mouth in [place] tablet 00 the Medical morning. Branch lipase-prot Yes 1{capsu Take 1 U nivers ease-amylas 8-29 le} capsule by it y of e (CREON) 00:00: mouth in [facility] 12,000-38,0 00 the Medical -60,000 morning Branch unit and 1 capsule capsule at noon and 1 capsule in the evening. Take with meals. ARIPiprazol Yes [id number] 5mg Take 1 [facility] e 5 mg 8-29 tablet by ity of tablet 00:00: mouth in [place] 00 the Medical morning. Branch albuterol Yes 2.5mg Inhale 3 Uni vers 2.5 mg /3 8-29 mL every 4 ity of mL (0.083 00:00: (four) [place] %) 00 hours as Medical nebulizer needed for Bran ch solution Wheezing, Shortness of Breath or Bronchospa sm. ketoconazol Yes [id number] Apply to [facility] e 2 % 8-29 area(s) ity of shampoo 00:00: once daily [facility] [place] 00 as needed Medical for Branch Itching. escitalopra Yes [id number] 20mg Take 1 [facility] m oxalate 8-29 tablet by ity o f 20 mg 00:00: mouth in [place] tablet 00 the Medical morning. Branch lipase-prot Yes 1{capsu Take 1 U nivers ease-amylas 8-29 le} capsule by it y of e (CREON) 00:00: mouth in [facility] 12-38,0 00 the Medical 60,000 morning Branch unit and 1 capsule capsule at noon and 1 capsule in the evening. Take with meals. ARIPiprazol Yes [id number] 5mg Take 1 [facility] e 5 mg 8-29 tablet by ity of tablet 00:00: mouth in [place] 00 the Medical morning. Branch albuterol Yes 2.5mg Inhale 3 Uni vers 2.5 mg /3 8-29 mL every 4 ity of mL (0.083 00:00: (four) [place] %) 00 hours as Medical nebulizer needed for Bran ch solution Wheezing, Shortness of Breath or Bronchospa sm. ketoconazol Yes [id number] Apply to [facility] e 2 % 8-29 area(s) ity of shampoo 00:00: once daily [place] 00 as needed Medical for Branch Itching. escitalopra 0 Yes [id number] 20mg Take 1 [facility] m oxalate 8-29 tablet by ity o f 20 mg 00:00: mouth in [place] tablet 00 the Medical morning. Branch ARIPiprazol Yes [id number] 5mg Take 1 [facility] e 5 mg 8-29 tablet by ity of tablet 00:00: mouth in [place] 00 the Medical morning. Branch albuterol Yes 2.5mg Inhale 3 Uni vers 2.5 mg /3 8-29 mL every 4 ity of mL (0.083 00:00: (four) [place] %) 00 hours as Medical nebulizer needed for Bran ch solution Wheezing, Shortness of Breath or Bronchospa sm. ketoconazol Yes [id number] Apply to [facility] e 2 % 8-29 area(s) ity of shampoo 00:00: once daily [place] 00 as needed Medical for Branch Itching. escitalopra Yes [id number] 20mg Take 1 [facility] m oxalate 8-29 tablet by ity o f 20 mg 00:00: mouth in [place] tablet 00 the Medical morning. Branch ARIPiprazol Yes [id number] 5mg Take 1 [facility] e 5 mg 8-29 tablet by ity of tablet 00:00: mouth in [place] 00 the Medical morning. Branch ketoconazol Yes [id number] Apply to [facility] e 2 % 8-29 area(s) ity of shampoo 00:00: once daily [place] 00 as needed Medical for Branch Itching. escitalopra 0 Yes [id number] 20mg Take 1 [facility] m oxalate 8-29 tablet by ity o f 20 mg 00:00: mouth in [place] tablet 00 the Medical morning. Branch ARIPiprazol Yes [id number] 5mg Take 1 [facility] e 5 mg 8-29 tablet by ity of tablet 00:00: mouth in [place] 00 the Medical morning. Branch ketoconazol Yes [id number] Apply to [facility] e 2 % 8-29 area(s) ity of shampoo 00:00: once daily [place] 00 as needed Medical for Branch Itching. escitalopra 2021-0 Yes [id number] 20mg Take 1 [facility] m oxalate 8-29 tablet by ity o f 20 mg 00:00: mouth in [place] tablet 00 the Medical morning. Branch ARIPiprazol 2021-0 Yes [id number] 5mg Take 1 [facility] e 5 mg 8-29 tablet by ity of tablet 00:00: mouth in [place] 00 the Medical morning. Branch ketoconazol 0 Yes [id number] Apply to [facility] e 2 % 8-29 area(s) ity of shampoo 00:00: once daily [place] 00 as needed Medical for Branch Itching. escitalopra 2021-0 Yes [id number] 20mg Take 1 [facility] m oxalate 8-29 tablet by ity o f 20 mg 00:00: mouth in [place] tablet 00 the Medical morning. Branch ARIPiprazol 2021-0 Yes [id number] 5mg Take 1 [facility] e 5 mg 8-29 tablet by ity of tablet 00:00: mouth in [place] 00 the Medical morning. Branch ketoconazol 0 Yes [id number] Apply to [facility] e 2 % 8-29 area(s) ity of shampoo 00:00: once daily [place] 00 as needed Medical for Branch Itching. ARIPiprazol 2021-0 Yes [id number] 5mg Take 1 [facility] e 5 mg 8-29 tablet by ity of tablet 00:00: mouth in [place] 00 the Medical morning. Branch ketoconazol 2021-0 Yes [id number] Apply to [facility] e 2 % 8-29 area(s) ity of shampoo 00:00: once daily [place] 00 as needed Medical for Branch Itching. ARIPiprazol 2021-0 Yes [id number] 5mg Take 1 [facility] e 5 mg 8-29 tablet by ity of tablet 00:00: mouth in [place] 00 the Medical morning. Branch ketoconazol 2021-0 Yes [id number] Apply to [facility] e 2 % 8-29 area(s) ity of shampoo 00:00: once daily [place] 00 as needed Medical for Branch Itching. ARIPiprazol 2021-0 Yes [id number] 5mg Take 1 [facility] e 5 mg 8-29 tablet by ity of tablet 00:00: mouth in [place] 00 the Medical morning. Branch ketoconazol 2021-0 Yes [id number] Apply to [facility] e 2 % 8-29 area(s) ity of shampoo 00:00: once daily [place] 00 as needed Medical for Branch Itching. ARIPiprazol 0 Yes [id number] 5mg Take 1 [facility] e 5 mg 8-29 tablet by ity of tablet 00:00: mouth in [place] 00 the Medical morning. Branch ketoconazol 0 Yes [id number] Apply to [facility] e 2 % 8-29 area(s) ity of shampoo 00:00: once daily [place] 00 as needed Medical for Branch Itching. ARIPiprazol 0 Yes [id number] 5mg Take 1 [facility] e 5 mg 8-29 tablet by ity of tablet 00:00: mouth in [place] 00 the Medical morning. Branch ketoconazol 0 Yes [id number] Apply to [facility] e 2 % 8-29 area(s) ity of shampoo 00:00: once daily [place] 00 as needed Medical for Branch Itching. ARIPiprazol 0 Yes [id number] 5mg Take 1 [facility] e 5 mg 8-29 tablet by ity of tablet 00:00: mouth in [place] 00 the Medical morning. Branch ketoconazol 0 Yes [id number] Apply to [facility] e 2 % 8-29 area(s) ity of shampoo 00:00: once daily [place] 00 as needed Medical for Branch Itching. ARIPiprazol 2021-0 Yes [id number] 5mg Take 1 [facility] e 5 mg 8-29 tablet by ity of tablet 00:00: mouth in [place] 00 the Medical morning. Branch ketoconazol 2021-0 Yes [id number] Apply to [facility] e 2 % 8-29 area(s) ity of shampoo 00:00: once daily [place] 00 as needed Medical for Branch Itching. ARIPiprazol 2021-0 Yes [id number] 5mg Take 1 [facility] e 5 mg 8-29 tablet by ity of tablet 00:00: mouth in [place] 00 the Medical morning. Branch ketoconazol Yes [id number] Apply to [facility] e 2 % 8-29 area(s) ity of shampoo 00:00: once daily [place] 00 as needed Medical for Branch Itching. ARIPiprazol Yes [id number] 5mg Take 1 [facility] e 5 mg 8-29 tablet by ity of tablet 00:00: mouth in [place] 00 the Medical morning. Branch ketoconazol Yes [id number] Apply to [facility] e 2 % 8-29 area(s) ity of shampoo 00:00: once daily [place] 00 as needed Medical for Branch Itching. ARIPiprazol Yes [id number] 5mg Take 1 [facility] e 5 mg 8-29 tablet by ity of tablet 00:00: mouth in [place] 00 the Medical morning. Branch ketoconazol Yes [id number] Apply to [facility] e 2 % 8-29 area(s) ity of shampoo 00:00: once daily [place] 00 as needed Medical for Branch Itching. ketoconazol Yes [id number] Apply to [facility] e 2 % 8-29 area(s) ity of shampoo 00:00: once daily [place] 00 as needed Medical for Branch Itching. ketoconazol 0 Yes [id number] Apply to [facility] e 2 % 8-29 area(s) ity of shampoo 00:00: once daily [place] 00 as needed Medical for Branch Itching. ketoconazol Yes [id number] Apply to [facility] e 2 % 8-29 area(s) ity of shampoo 00:00: once daily [place] 00 as needed Medical for Branch Itching. ketoconazol 2022- No [id number] Apply to [facility] e 2 % 8-29 09-01 area(s) ity of shampoo 00:00: 00:00 once daily [place] 00 :00 as needed Medical for Branch Itching. ARIPiprazol 2022- No [id number] 5mg Take 1 [facility] e 5 mg 8-29 08-17 tablet by ity of tablet 00:00: 00:00 mouth in [place] 00 :00 the Medical morning. Branch ARIPiprazol 2021-0 2022- No [id number] 5mg Take 1 [facility] e 5 mg 11-27 tablet by ity of tablet 00:00: 00:00 mouth in [place] 00 :00 the Medical morning. Branch escitalopra 2022- No [id number] 20mg Take 1 [facility] m oxalate 11-27 tablet by ity of 20 mg 00:00: 00:00 mouth in [place] tablet 00 :00 the Medical morning. Branch albuterol 2022- No 2.5mg Inhale 3 Un maddie 2.5 mg /3 11-27-13 mL every 4 ity of mL (0.083 00:00: 00:00 (four) [place] %) 00 :00 hours as Medical nebulizer [...] of e (CREON) 00:00: 00:00 mouth in [facility] as 12,000-38,0 00 :00 the Medical 00 -60,000 morning Branch unit and 1 capsule capsule at noon and 1 capsule in the evening. Take with meals. pantoprazol 2022- No [id number] 40mg Take 20 mL Univers e 2 mg/mL 11-27 by mouth ity o f oral 00:00: 00:00 in the [place] suspension 00 :00 morning. Medic al Branch pantoprazol 2022- No [id number] 40mg Take 20 mL Univers e 2 mg/mL 11-27 by mouth ity o f oral 00:00: 00:00 in the [place] suspension 00 :00 morning. Medic al Branch gabapentin 2022- No [id number] 800mg Take 1 [facility] 800 mg 11-27 [id number] tablet by ity o f tablet 00:00: 00:00 mouth in [place] 00 :00 the Medical morning Branch and 1 tablet at noon and 1 tablet in the evening. escitalopra 2021- No [id number] 20mg Take 1 [facility] m oxalate 08-14 tablet by ity of 20 mg 00:00: 00:00 mouth [place] tablet 00 :00 daily. Medical Branch levothyroxi Yes [id number] 1 tablet Univers ne 137 mcg 5-13 PO every ity o f tablet 00:00: other day [place] 00 Medical Branch levothyroxi 0 Yes [id number] 1 tablet [facility] ne 137 mcg 5-13 PO every ity o f tablet 00:00: other day [place] 00 Medical Branch levothyroxi 2021- No [id number] 1 tablet [facility] ne 137 mcg 5-13 10-11 PO every ity of tablet 00:00: 00:00 other day [place] 00 :00 Medical Branch gabapentin 2021- No [id number] 800mg Take 1 [facility] 800 mg 08-09 [id number] tablet by ity o f tablet 00:00: [...] by mouth ity of tablet 13:49: at [place] [address] bedtime. Medical Branch ferrous 2021-0 Yes 300mg Take 300 Unive rs sulfate 300 4-12 mg by ity of mg (60 mg 13:49: mouth 2 [place] iron)/5 mL 44 (two) Medical solution times Branch daily. atorvastati 2021-0 Yes 80mg Take 80 mg Univers n 80 mg 4-12 by mouth ity of tablet 13:49: at [place] [address] bedtime. Medical Branch ferrous 2021-0 Yes 300mg Take 300 Unive rs sulfate 300 4-12 mg by ity of mg (60 mg 13:49: mouth 2 [place] iron)/5 mL 44 (two) Medical solution times Branch daily. atorvastati 2021-0 Yes 80mg Take 80 mg Univers n 80 mg 4-12 by mouth ity of tablet 13:49: at [place] [address] bedtime. Medical Branch ferrous 2022-0 Yes 300mg Take 300 Unive rs sulfate 300 4-12 mg by ity of mg (60 mg 13:49: mouth 2 [place] iron)/5 mL 44 (two) Medical solution times Branch daily. atorvastati 2022-0 Yes 80mg Take 80 mg Univers n 80 mg 4-12 by mouth ity of tablet 13:49: at [place] [address] bedtime. Medical Branch ferrous 2022-0 Yes 300mg Take 300 Unive rs sulfate 300 4-12 mg by ity of mg (60 mg 13:49: mouth 2 [place] iron)/5 mL 44 (two) Medical solution times Branch daily. atorvastati 2022-0 Yes 80mg Take 80 mg Univers n 80 mg 4-12 by mouth ity of tablet 13:49: at [place] [address] bedtime. Medical Branch ferrous 2022-0 Yes 300mg Take 300 Unive rs sulfate 300 4-12 mg by ity of mg (60 mg 13:49: mouth 2 [place] iron)/5 mL 44 (two) Medical solution times Branch daily. atorvastati 2022-0 Yes 80mg Take 80 mg Univers n 80 mg 4-12 by mouth ity of tablet 13:49: at [place] [address] bedtime. Medical Branch ferrous 2022-0 Yes 300mg Take 300 Unive rs sulfate 300 4-12 mg by ity of mg (60 mg 13:49: mouth 2 [place] iron)/5 mL 44 (two) Medical solution times Branch daily. atorvastati 2022-0 Yes 80mg Take 80 mg Univers n 80 mg 4-12 by mouth ity of tablet 13:49: at [place] [address] bedtime. Medical Branch ferrous 2022-0 Yes 300mg Take 300 Unive rs sulfate 300 4-12 mg by ity of mg (60 mg 13:49: mouth 2 [place] iron)/5 mL 44 (two) Medical solution times Branch daily. atorvastati 2022-0 Yes 80mg Take 80 mg Univers n 80 mg 4-12 by mouth ity of tablet 13:49: at [place] [address] bedtime. Medical Branch ferrous 2022-0 Yes 300mg Take 300 Unive rs sulfate 300 4-12 mg by ity of mg (60 mg 13:49: mouth 2 [place] iron)/5 mL 44 (two) Medical solution times Branch daily. atorvastati 2022-0 Yes 80mg Take 80 mg Univers n 80 mg 4-12 by mouth ity of tablet 13:49: at [place] [address] bedtime. Medical Branch ferrous 2022-0 Yes 300mg Take 300 Unive rs sulfate 300 4-12 mg by ity of mg (60 mg 13:49: mouth 2 [place] iron)/5 mL 44 (two) Medical solution times Branch daily. atorvastati 2022-0 Yes 80mg Take 80 mg Univers n 80 mg 4-12 by mouth ity of tablet 13:49: at [place] [address] bedtime. Medical Branch ferrous 2022-0 Yes 300mg Take 300 Unive rs sulfate 300 4-12 mg by ity of mg (60 mg 13:49: mouth 2 [place] iron)/5 mL 44 (two) Medical solution times Branch daily. atorvastati 2022-0 Yes 80mg Take 80 mg Univers n 80 mg 4-12 by mouth ity of tablet 13:49: at [place] [address] bedtime. Medical Branch ferrous 2022-0 Yes 300mg Take 300 Unive rs sulfate 300 4-12 mg by ity of mg (60 mg 13:49: mouth 2 [place] iron)/5 mL 44 (two) Medical solution times Branch daily. atorvastati 2022-0 Yes 80mg Take 80 mg Univers n 80 mg 4-12 by mouth ity of tablet 13:49: at [place] [address] bedtime. Medical Branch ferrous 2022-0 Yes 300mg Take 300 Unive rs sulfate 300 4-12 mg by ity of mg (60 mg 13:49: mouth 2 [place] iron)/5 mL 44 (two) Medical solution times Branch daily. atorvastati 2022-0 Yes 80mg Take 80 mg Univers n 80 mg 4-12 by mouth ity of tablet 13:49: at [place] [address] bedtime. Medical Branch ferrous 2022-0 Yes 300mg Take 300 Unive rs sulfate 300 4-12 mg by ity of mg (60 mg 13:49: mouth 2 [place] iron)/5 mL 44 (two) Medical solution times Branch daily. atorvastati 2022-0 Yes 80mg Take 80 mg Univers n 80 mg 4-12 by mouth ity of tablet 13:49: at [place] [address] bedtime. Medical Branch ferrous 2022-0 Yes 300mg Take 300 Unive rs sulfate 300 4-12 mg by ity of mg (60 mg 13:49: mouth 2 [place] iron)/5 mL 44 (two) Medical solution times Branch daily. atorvastati 2022-0 Yes 80mg Take 80 mg Univers n 80 mg 4-12 by mouth ity of tablet 13:49: at [place] [address] bedtime. Medical Branch ferrous 2022-0 Yes 300mg Take 300 Unive rs sulfate 300 4-12 mg by ity of mg (60 mg 13:49: mouth 2 [place] iron)/5 mL 44 (two) Medical solution times Branch daily. atorvastati 2022-0 Yes 80mg Take 80 mg Univers n 80 mg 4-12 by mouth ity of tablet 13:49: at [place] [address] bedtime. Medical Branch ferrous 2022-0 Yes 300mg Take 300 Unive rs sulfate 300 4-12 mg by ity of mg (60 mg 13:49: mouth 2 [place] iron)/5 mL 44 (two) Medical solution times Branch daily. atorvastati 2022-0 Yes 80mg Take 80 mg Univers n 80 mg 4-12 by mouth ity of tablet 13:49: at [place] [address] bedtime. Medical Branch ferrous 2022-0 Yes 300mg Take 300 Unive rs sulfate 300 4-12 mg by ity of mg (60 mg 13:49: mouth 2 [place] iron)/5 mL 44 (two) Medical solution times Branch daily. atorvastati 2022-0 Yes 80mg Take 80 mg Univers n 80 mg 4-12 by mouth ity of tablet 13:49: at [place] [address] bedtime. Medical Branch ferrous 2022-0 Yes 300mg Take 300 Unive rs sulfate 300 4-12 mg by ity of mg (60 mg 13:49: mouth 2 [place] iron)/5 mL 44 (two) Medical solution times Branch daily. atorvastati 2022-0 Yes 80mg Take 80 mg Univers n 80 mg 4-12 by mouth ity of tablet 13:49: at [place] [address] bedtime. Medical Branch ferrous 2022-0 Yes 300mg Take 300 Unive rs sulfate 300 4-12 mg by ity of mg (60 mg 13:49: mouth 2 [place] iron)/5 mL 44 (two) Medical solution times Branch daily. atorvastati 2022-0 Yes 80mg Take 80 mg [facility] n 80 mg 4-12 by mouth ity of tablet 13:49: at [place] [address] bedtime. Medical Branch ferrous 2021-0 Yes 300mg Take 300 Unive rs sulfate 300 4-12 mg by ity of mg (60 mg 13:49: mouth 2 [place] iron)/5 mL 44 (two) Medical solution times Branch daily. atorvastati Yes 80mg Take 80 mg Univers n 80 mg 4-12 by mouth ity of tablet 13:49: at [place] [address] bedtime. Medical Branch atorvastati 0 Yes 80mg Take 80 mg [facility] n 80 mg 4-12 by mouth ity of tablet 13:49: at [place] [address] bedtime. Medical Branch atorvastati 0 Yes 80mg Take 80 mg [facility] n 80 mg 4-12 by mouth ity of tablet 13:49: at [place] [address] bedtime. Medical Branch atorvastati Yes 80mg Take 80 mg Univers n 80 mg 4-12 by mouth ity of tablet 13:49: at [place] [address] bedtime. Medical Branch atorvastati 0 Yes 80mg Take 80 mg Univers n 80 mg 4-12 by mouth ity of tablet 13:49: at [place] [address] bedtime. Medical Branch atorvastati 0 Yes 80mg Take 80 mg Univers n 80 mg 4-12 by mouth ity of tablet 13:49: at [place] [address] bedtime. Medical Branch atorvastati 0 Yes 80mg Take 80 mg Univers n 80 mg 4-12 by mouth ity of tablet 13:49: at [place] [address] bedtime. Medical Branch atorvastati 0 Yes 80mg Take 80 mg [facility] n 80 mg 4-12 by mouth ity of tablet 13:49: at [place] [address] bedtime. Medical Branch atorvastati 0 Yes 80mg Take 80 mg Univers n 80 mg 4-12 by mouth ity of tablet 13:49: at [place] [address] bedtime. Medical Branch atorvastati 0 Yes 80mg Take 80 mg [facility] n 80 mg 4-12 by mouth ity of tablet 13:49: at [place] [address] bedtime. Medical Branch atorvastati 0 Yes 80mg Take 80 mg [facility] n 80 mg 4-12 by mouth ity of tablet 13:49: at [place] 44 bedtime. Medical Branch gabapentin 2021- No [id number] 600mg Take 1 [facility] 600 mg 07-11 [id number] tablet by ity o f tablet 00:00: 00:00 mouth 3 [place] 00 :00 (three) Medical times Branch daily. pantoprazol 2021- No [id number] 40mg Take 20 mL Univers e 2 mg/mL 06-13 by mouth ity o f oral 00:00: 00:00 daily. [place] suspension 00 :00 Medical Branch oxyCODONE 2020-04 Yes [id number] 10mg Take 1 Univer s CR 10 mg 12 1-03 tablet by ity of hr tablet 00:00: mouth [place] every 12 Medical (twelve) Branch hours as needed for Pain. PRN Indication s: acute pain oxyCODONE 2020-04 Yes [id number] 10mg Take 1 Univer s CR 10 mg 12 1-03 tablet by ity of hr tablet 00:00: mouth [place] every 12 Medical (twelve) Branch hours as needed for Pain. PRN Indication s: acute pain oxyCODONE 2020-04 Yes [id number] 10mg Take 1 Univer s CR 10 mg 12 1-03 tablet by ity of hr tablet 00:00: [facility] every 12 Medical (twelve) Branch hours as needed for Pain. PRN Indication s: acute pain oxyCODONE 2020-04 Yes [id number] 10mg Take 1 Univer s CR 10 mg 12 1-03 tablet by ity of hr tablet 00:00: mouth [place] every 12 Medical (twelve) Branch hours as needed for Pain. PRN Indication s: acute pain oxyCODONE 2020-04 Yes [id number] 10mg Take 1 Univer s CR 10 mg 12 1-03 tablet by ity of hr tablet 00:00: mouth [place] 00 every 12 Medical (twelve) Branch hours as needed for Pain. PRN Indication s: acute pain oxyCODONE 2020-04 Yes [id number] 10mg Take 1 Univer s CR 10 mg 12 1-03 tablet by ity of hr tablet 00:00: mouth [place] 00 every 12 Medical (twelve) Branch hours [...] 1 Unive rs CR 10 mg 12 - 06-30 tablet by it y of hr tablet 00:00: 00:00 mouth [place] 00 :00 every 12 Medical (twelve) Branch hours as needed for Pain. PRN Indication s: acute pain oxyCODONE 2020-04- No [id number] 10mg Take 1 Unive rs CR 10 mg 12 1- 06-30 tablet by it y of hr tablet 00:00: 00:00 mouth [place] 00 :00 every 12 Medical (twelve) Branch hours as needed for Pain. PRN Indication s: acute pain lipase-prot 2020-04- No [id number] 1{capsu Take 1 [facility] ease-amylas 1-03 08-29 le} capsule by i ty of e (CREON) 00:00: 00:00 mouth 3 [place] 12,000-38,0 00 :00 (three) Medic al 00 -60,000 times Branch unit daily with capsule meals. ARIPiprazol 2020-04- No [id number] 5mg Take 1 Univers e 5 mg 0-10 08-29 tablet by ity of tablet 00:00: 00:00 mouth [place] 00 :00 daily. Medical Branch dicyclomine 2020-04 Yes [id number] 20mg Take 1 [facility] 20 mg 0-09 tablet by ity of tablet 00:00: mouth as [place] 00 needed for Medical Abdominal Branch pain. dicyclomine 2020-04 Yes [id number] 20mg Take 1 [facility] 20 mg 0-09 tablet by ity of tablet 00:00: mouth as [place] 00 needed for Medical Abdominal Branch pain. dicyclomine 2020-04 Yes [id number] 20mg Take 1 [facility] 20 mg 0-09 tablet by ity of tablet 00:00: mouth as [place] 00 needed for Medical Abdominal Branch pain. dicyclomine 2020-04 Yes [id number] 20mg Take 1 [facility] 20 mg 0-09 tablet by ity of tablet 00:00: mouth as [place] 00 needed for Medical Abdominal Branch pain. dicyclomine 2020-04 Yes [id number] 20mg Take 1 [facility] 20 mg 0-09 tablet by ity of tablet 00:00: mouth as [place] 00 needed for Medical Abdominal Branch pain. dicyclomine 2020-04 Yes [id number] 20mg Take 1 [facility] 20 mg 0-09 tablet by ity of tablet 00:00: mouth as [place] 00 needed for Medical Abdominal Branch pain. dicyclomine 2020-04 Yes [id number] 20mg Take 1 [facility] 20 mg 0-09 tablet by ity of tablet 00:00: mouth as [place] 00 needed for Medical Abdominal Branch pain. dicyclomine 2020-04 Yes [id number] 20mg Take 1 [facility] 20 mg 0-09 tablet by ity of tablet 00:00: mouth as [place] 00 needed for Medical Abdominal Branch pain. dicyclomine 2020-04 Yes [id number] 20mg Take 1 [facility] 20 mg 0-09 tablet by ity of tablet 00:00: mouth as [place] 00 needed for Medical Abdominal Branch pain. dicyclomine 2020-04 Yes [id number] 20mg Take 1 [facility] 20 mg 0-09 tablet by ity of tablet 00:00: mouth as [place] 00 needed for Medical Abdominal Branch pain. dicyclomine 2020-04 Yes [id number] 20mg Take 1 [facility] 20 mg 0-09 tablet by ity of tablet 00:00: mouth as [place] 00 needed for Medical Abdominal Branch pain. dicyclomine 2020-04 Yes [id number] 20mg Take 1 [facility] 20 mg 0-09 tablet by ity of tablet 00:00: mouth as [place] 00 needed for Medical Abdominal Branch pain. dicyclomine 2020-04 Yes [id number] 20mg Take 1 [facility] 20 mg 0-09 tablet by ity of tablet 00:00: mouth as [place] 00 needed for Medical Abdominal Branch pain. dicyclomine 2020-04 Yes [id number] 20mg Take 1 [facility] 20 mg 0-09 tablet by ity of tablet 00:00: mouth as [place] 00 needed for Medical Abdominal Branch pain. dicyclomine 2020-04 Yes [id number] 20mg Take 1 [facility] 20 mg 0-09 tablet by ity of tablet 00:00: mouth as [place] 00 needed for Medical Abdominal Branch pain. dicyclomine 2020-04 Yes [id number] 20mg Take 1 [facility] 20 mg 0-09 tablet by ity of tablet 00:00: mouth as [place] 00 needed for Medical Abdominal Branch pain. dicyclomine 2020-04 Yes [id number] 20mg Take 1 [facility] 20 mg 0-09 tablet by ity of tablet 00:00: mouth as [place] 00 needed for Medical Abdominal Branch pain. dicyclomine 2020-04 Yes [id number] 20mg Take 1 [facility] 20 mg 0-09 tablet by ity of tablet 00:00: mouth as [place] 00 needed for Medical Abdominal Branch pain. dicyclomine 2020-04 Yes [id number] 20mg Take 1 [facility] 20 mg 0-09 tablet by ity of tablet 00:00: mouth as [place] 00 needed for Medical Abdominal Branch pain. dicyclomine 2020-04 Yes [id number] 20mg Take 1 [facility] 20 mg 0-09 tablet by ity of tablet 00:00: mouth as [place] 00 needed for Medical Abdominal Branch pain. dicyclomine 2020-04 Yes [id number] 20mg Take 1 [facility] 20 mg 0-09 tablet by ity of tablet 00:00: mouth as [place] 00 needed for Medical Abdominal Branch pain. dicyclomine 2020-04- No [id number] 20mg Take 1 [facility] 20 mg 0-09 06-30 tablet by ity of tablet 00:00: 00:00 mouth as [place] 00 :00 needed for Medical Abdominal Branch pain. dicyclomine 2020-04- No [id number] 20mg Take 1 [facility] 20 mg 0-09 06-30 tablet by ity of tablet 00:00: 00:00 mouth as [place] 00 :00 needed for Medical Abdominal Branch pain. escitalopra 2019-0 Yes 10mg QD Take [address] [facility] oxalate 5-17 by [facility] ([facility] 11:04: daily. [facility] 10 MG 17 [facility] tablet escitalopra Yes 10mg QD Take [address] [facility] oxalate 5-17 by [facility] ([facility]) 11:04: daily. [facility] l 10 MG 17 [facility] tablet escitalopra Yes 10mg QD Take [address] [facility] oxalate 5-17 by [facility] ([facility]) 11:04: daily. Medica l 10 MG 17 [facility] tablet escitalopra 0 Yes 10mg QD Take [address] [facility] oxalate 5-17 by [facility] ([facility]) 11:04: daily. Medica l 10 MG 17 [facility] tablet escitalopra Yes 10mg QD Take [address] [facility] oxalate 5-17 by [facility] ([facility]) 11:04: daily. Medica l 10 MG 17 Center tablet escitalopra Yes 10mg QD Take 10 mg [...] -acetaminop 3-23 tablet by Myra es hen (NORCT 00:00: mouth Medica l 7.5-325) 00 every [...] -acetaminop 3-23 tablet by Myra es hen (NORCT 00:00: mouth Medica l 7.5-325) 00 every 6 Center 7.5-325 mg (six) per tablet hours as needed for Pain. Max Daily Amount: 4 tablets HYDROcodone Yes 1{tbl} Take [address] -acetaminop 3-23 tablet by Myra es hen (NORCT 00:00: mouth Medica l 7.5-325) 00 every 6 Center 7.5-325 mg (six) per tablet hours as needed for Pain. Max Daily Amount: 4 tablets BuPROPion BuPROPion Yes Chandrakant 1 tablet Common HCl ER HCl ER 9-17 [facility] (Smoking (Smoking 00:00: morning - [facility] Det) Det) 00 [facility] Hydrocodone Hydrocodone Yes Chandrakant 1 tablet Common -Acetaminop -Acetaminop Jay as needed [facility] Xanax Xanax Yes Chandrakant 1 tablet Common Jay [facility] Zofran Zofran Yes Chandrakant 1 tablet Commo n Jay [facility] Immunizations Ordered Filled Date Status Comments Source Immunization Name Immunization Name Influenza Virus 2022-10-08 Completed Universit y of Vaccine - Whole 00:00:00 [facility] Influenza Virus 2022-10-08 Completed Universit y of Vaccine - Whole 00:00:00 [facility] Influenza Virus 2022-10-08 Completed Universit y of Vaccine - Whole 00:00:00 [facility] Influenza Virus 2022-10-08 Completed Universit y of Vaccine - Whole 00:00:00 [facility] Influenza Virus 2022-10-08 Completed Universit y of Vaccine - Whole 00:00:00 [facility] Influenza Virus 2022-10-08 Completed Universit y of Vaccine - Whole 00:00:00 [facility] Influenza Virus 2022-10-08 Completed Universit y of Vaccine - Whole 00:00:00 [facility] Influenza Virus 2022-10-08 Completed Universit y of Vaccine - Whole 00:00:00 [facility] Influenza Virus 2022-10-08 Completed Universit y of Vaccine - Whole 00:00:00 [facility] Influenza Virus 2022-10-08 Completed Universit y of Vaccine - Whole 00:00:00 [facility] Influenza Virus 2022-10-08 Completed Universit y of Vaccine - Whole 00:00:00 [facility] Influenza Virus 2022-10-08 Completed Universit y of Vaccine - Whole 00:00:00 [facility] Influenza Virus 2022-10-08 Completed Universit y of Vaccine - Whole 00:00:00 [facility] Influenza Virus 2022-10-08 Completed Universit y of Vaccine - Whole 00:00:00 [facility] Influenza Virus 2022-10-08 Completed Universit y of Vaccine - Whole 00:00:00 [facility] Influenza Virus 2022-10-08 Completed Universit y of Vaccine - Whole 00:00:00 [facility] Influenza Virus 2022-10-08 Completed Universit y of Vaccine - Whole 00:00:00 [facility] Influenza Virus 2022-10-08 Completed Universit y of Vaccine - Whole 00:00:00 [facility] Influenza Virus 2022-10-08 Completed Universit y of Vaccine - Whole 00:00:00 [facility] Influenza Virus 2022-10-08 Completed Universit y of Vaccine - Whole 00:00:00 [facility] Influenza Virus 2022-10-08 Completed Universit y of Vaccine - Whole 00:00:00 [facility] Influenza Virus 2022-10-08 Completed Universit y of Vaccine - Whole 00:00:00 [facility] Influenza Virus 2022-10-08 Completed Universit y of Vaccine - Whole 00:00:00 [facility] Influenza Virus 2022-10-08 Completed Universit y of Vaccine - Whole 00:00:00 [facility] Pneumococcal 20 2022-08-28 Completed Universit y of Conjugate, PCV20 00:00:00 [facility] dical (Prevnar 20) Branch SARS-COV-2 COVID-19 2022-08-28 Completed Unive rsity of ANTONI-SUCROSE 00:00:00 [place] [facility] VACCINE 12 Y[facility]+, Branch BIVALENT 0.3ML, IM, (PFIZER ARROYO TOP) Pneumococcal 20 2022-08-28 Completed Universit y of Conjugate, PCV20 00:00:00 [facility] dical (Prevnar 20) Branch SARS-COV-2 COVID-19 2022-08-28 Completed Unive rsity of [facility]I-[facility] 00:00:00 [facility] VACCINE 12 YRS+, Branch BIVALENT 0.3ML, IM, (PFIZER ARROYO TOP) Pneumococcal 20 2022-08-28 Completed Universit y of Conjugate, PCV20 00:00:00 [facility] dical (Prevnar 20) Branch SARS-COV-2 COVID-19 2022-08-28 Completed Unive rsity of [facility]I-[facility] 00:00:00 [facility]INE 12 YRS+, Branch BIVALENT 0.3ML, IM, (PFIZER ARROYO TOP) Pneumococcal 20 2022-08-28 Completed Universit y of Conjugate, PCV20 00:00:00 [facility] dical (Prevnar 20) Branch SARS-COV-2 COVID-19 2022-08-28 Completed Unive rsity of [facility] 00:00:00 [place] [facility] VACCINE 12 YRS+, Branch BIVALENT 0.3ML, IM, (PFIZER ARROYO TOP) Pneumococcal 20 2022-08-28 Completed Universit y of Conjugate, PCV20 00:00:00 [facility] dical (Prevnar 20) Branch SARS-COV-2 [...] Universit y of Conjugate, PCV20 00:00:00 [facility] (Prevnar 20) Branch SARS-COV-2 COVID-19 2022-08-28 [...] Completed Universit y of Conjugate, PCV20 00:00:00 [place] [facility] (Prevnar 20) Branch SARS-COV-2 COVID-19 2022-08-28 Completed Unive rsity of [facility] 00:00:00 [place] [facility] VACCINE 12 YRS+, Branch BIVALENT 0.3ML, IM, (PFIZER ARROYO TOP) Pneumococcal 20 2022-08-28 Completed Universit y of Conjugate, PCV20 00:00:00 [place] [facility] (Prevnar 20) Branch SARS-COV-2 COVID-19 2022-08-28 Completed Unive rsity of [facility]I-[facility]CROSE 00:00:00 [facility]INE 12 YRS+, Branch BIVALENT 0.3ML, IM, (PFIZER ARROYO TOP) SARS-COV-2 COVID-19 2020-09-20 Completed Unive rsity of ADI/J&J VACCINE 00:00:00 [facility] SARS-COV-2 COVID-19 2020-09-20 Completed Unive rsity of ADI/J&J VACCINE 00:00:00 [facility] SARS-COV-2 COVID-19 2020-09-20 Completed Unive rsity of ADI/J&J VACCINE 00:00:00 [facility] SARS-COV-2 COVID-19 2020-09-20 Completed Unive rsity of ADI/J&J VACCINE 00:00:00 [facility] SARS-COV-2 COVID-19 2020-09-20 Completed Unive rsity of ADI/J&J VACCINE 00:00:00 [facility] SARS-COV-2 COVID-19 2020-09-20 Completed Unive rsity of ADI/J&J VACCINE 00:00:00 [facility] SARS-COV-2 COVID-19 2020-09-20 Completed Unive rsity of ADI/J&J VACCINE 00:00:00 [facility] SARS-COV-2 COVID-19 2020-09-20 Completed Unive rsity of ADI/J&J VACCINE 00:00:00 [facility] SARS-COV-2 COVID-19 2020-09-20 Completed Unive rsity of ADI/J&J VACCINE 00:00:00 [facility] SARS-COV-2 COVID-19 2020-09-20 Completed Unive rsity of ADI/J&J VACCINE 00:00:00 [facility] SARS-COV-2 COVID-19 2020-09-20 Completed Unive rsity of ADI/J&J VACCINE 00:00:00 [facility] SARS-COV-2 COVID-19 2020-09-20 Completed Unive rsity of ADI/J&J VACCINE 00:00:00 [facility] SARS-COV-2 COVID-19 2020-09-20 Completed Unive rsity of ADI/J&J VACCINE 00:00:00 [facility] SARS-COV-2 COVID-19 2020-09-20 Completed Unive rsity of ADI/J&J VACCINE 00:00:00 [facility] SARS-COV-2 COVID-19 2020-09-20 Completed Unive rsity of ADI/J&J VACCINE 00:00:00 [facility] SARS-COV-2 COVID-19 2020-09-20 Completed Unive rsity of ADI/J&J VACCINE 00:00:00 [facility] SARS-COV-2 COVID-19 2020-09-20 Completed Unive rsity of ADI/J&J VACCINE 00:00:00 [facility] SARS-COV-2 COVID-19 2020-09-20 Completed Unive rsity of ADI/J&J VACCINE 00:00:00 [facility] SARS-COV-2 COVID-19 2020-09-20 Completed Unive rsity of ADI/J&J VACCINE 00:00:00 [facility] SARS-COV-2 COVID-19 2020-09-20 Completed Unive rsity of ADI/J&J VACCINE 00:00:00 [facility] SARS-COV-2 COVID-19 2020-09-20 Completed Unive rsity of ADI/J&J VACCINE 00:00:00 [facility] SARS-COV-2 COVID-19 2020-09-20 Completed Unive rsity of ADI/J&J VACCINE 00:00:00 [facility] SARS-COV-2 COVID-19 2020-09-20 Completed Unive rsity of ADI/J&J VACCINE 00:00:00 [facility] SARS-COV-2 COVID-19 2020-09-20 Completed Unive rsity of ADI/J&J VACCINE 00:00:00 [facility] SARS-COV-2 COVID-19 2020-09-20 Completed Unive rsity of ADI/J&J VACCINE 00:00:00 [facility] SARS-COV-2 COVID-19 2020-09-20 Completed Unive rsity of ADI/J&J VACCINE 00:00:00 [facility] SARS-COV-2 COVID-19 2020-09-20 Completed Unive rsity of ADI/J&J VACCINE 00:00:00 [facility] SARS-COV-2 COVID-19 2020-09-20 Completed Unive rsity of ADI/J&J VACCINE 00:00:00 [facility] SARS-COV-2 COVID-19 2020-09-20 Completed Unive rsity of ADI/J&J VACCINE 00:00:00 [facility] SARS-COV-2 COVID-19 2020-09-20 Completed Unive rsity of ADI/J&J VACCINE 00:00:00 [facility] SARS-COV-2 COVID-19 2020-09-20 Completed Unive rsity of ADI/J&J VACCINE 00:00:00 [facility] SARS-COV-2 COVID-19 2020-09-20 Completed Unive rsity of ADI/J&J VACCINE 00:00:00 [facility] SARS-COV-2 COVID-19 2020-09-20 Completed Unive rsity of ADI/J&J VACCINE 00:00:00 [facility] SARS-COV-2 COVID-19 2020-09-20 Completed Unive rsity of ADI/J&J VACCINE 00:00:00 [facility] SARS-COV-2 COVID-19 2020-09-20 Completed Unive rsity of ADI/J&J VACCINE 00:00:00 [facility] SARS-COV-2 COVID-19 2020-09-20 Completed Unive rsity of ADI/J&J VACCINE 00:00:00 [facility] SARS-COV-2 COVID-19 2020-09-20 Completed Unive rsity of ADI/J&J VACCINE 00:00:00 [facility] SARS-COV-2 COVID-19 2020-09-20 Completed Unive rsity of ADI/J&J VACCINE 00:00:00 [facility] SARS-COV-2 COVID-19 2020-09-20 Completed Unive rsity of ADI/J&J VACCINE 00:00:00 [facility] SARS-COV-2 COVID-19 2020-09-20 Completed Unive rsity of ADI/J&J VACCINE 00:00:00 [facility] SARS-COV-2 COVID-19 2020-09-20 Completed Unive rsity of ADI/J&J VACCINE 00:00:00 [facility] SARS-COV-2 COVID-19 2020-09-20 Completed Unive rsity of ADI/J&J VACCINE 00:00:00 [facility] SARS-COV-2 COVID-19 2020-09-20 Completed Unive rsity of ADI/J&J VACCINE 00:00:00 [facility] SARS-COV-2 COVID-19 2020-09-20 Completed Unive rsity of ADI/J&J VACCINE 00:00:00 [facility] SARS-COV-2 COVID-19 2020-09-20 Completed Unive rsity of ADI/J&J VACCINE 00:00:00 [facility] SARS-COV-2 COVID-19 2020-09-20 Completed Unive rsity of ADI/J&J VACCINE 00:00:00 [facility] SARS-COV-2 COVID-19 2020-09-20 Completed Unive rsity of ADI/J&J VACCINE 00:00:00 [facility] SARS-COV-2 COVID-19 2020-09-20 Completed Unive rsity of ADI/J&J VACCINE 00:00:00 [facility] SARS-COV-2 COVID-19 2020-09-20 Completed Unive rsity of ADI/J&J VACCINE 00:00:00 [facility] SARS-COV-2 COVID-19 2020-09-20 Completed Unive rsity of ADI/J&J VACCINE 00:00:00 [facility] SARS-COV-2 COVID-19 2020-09-20 Completed Unive rsity of ADI/J&J VACCINE 00:00:00 [facility] SARS-COV-2 COVID-19 2020-09-20 Completed Unive rsity of ADI/J&J VACCINE 00:00:00 [facility] SARS-COV-2 COVID-19 2020-09-20 Completed Unive rsity of ADI/J&J VACCINE 00:00:00 [facility] SARS-COV-2 COVID-19 2020-09-20 Completed Unive rsity of ADI/J&J VACCINE 00:00:00 [facility] SARS-COV-2 COVID-19 2020-09-20 Completed Unive rsity of ADI/J&J VACCINE 00:00:00 [facility] Influenza Virus 2020-01-11 Completed Universit [...] y of Vaccine Quad .5 mL 00:00:00 [facility] 6+ MO Branch (FLUZONE/FLULAVAL/F LUARIX) [...] y of Vaccine Quad .5 mL 00:00:00 [facility] 6+ MO Branch (FLUZONE/FLULAVAL/F LUARIX) Influenza Virus 2020-01-11 Completed Universit y of Vaccine Quad .5 mL 00:00:00 [facility] 6+ MO Branch (FLUZONE/FLULAVAL/F LUARIX) Influenza Virus 2020-01-11 Completed Universit y of Vaccine Quad .5 mL 00:00:00 [facility] 6+ MO Branch (FLUZONE/FLULAVAL/F LUARIX) Influenza Virus 2020-01-11 Completed Universit y of Vaccine Quad .5 mL 00:00:00 [facility] 6+ MO Branch (FLUZONE/FLULAVAL/F LUARIX) TDAP (ADACEL) 2019-04-28 Completed University of VACCINE 00:00:00 [facility] TDAP (ADACEL) 2019-04-28 Completed University of VACCINE 00:00:00 [facility] TDAP (ADACEL) 2019-04-28 Completed University of VACCINE 00:00:00 [facility] TDAP (ADACEL) 2019-04-28 Completed University of VACCINE 00:00:00 [facility] TDAP (ADACEL) 2019-04-28 Completed University of VACCINE 00:00:00 [facility] TDAP (ADACEL) 2019-04-28 Completed University of VACCINE 00:00:00 [facility] TDAP (ADACEL) 2019-04-28 Completed University of VACCINE 00:00:00 [facility] TDAP (ADACEL) 2019-04-28 Completed University of VACCINE 00:00:00 [facility] TDAP (ADACEL) 2019-04-28 Completed University of VACCINE 00:00:00 [facility] TDAP (ADACEL) 2019-04-28 Completed University of VACCINE 00:00:00 [facility] TDAP (ADACEL) 2019-04-28 Completed University of VACCINE 00:00:00 [facility] TDAP (ADACEL) 2019-04-28 Completed University of VACCINE 00:00:00 [facility] TDAP (ADACEL) 2019-04-28 Completed University of VACCINE 00:00:00 [facility] TDAP (ADACEL) 2019-04-28 Completed University of VACCINE 00:00:00 [facility] TDAP (ADACEL) 2019-04-28 Completed University of VACCINE 00:00:00 [facility] TDAP (ADACEL) 2019-04-28 Completed University of VACCINE 00:00:00 [facility] TDAP (ADACEL) 2019-04-28 Completed University of VACCINE 00:00:00 [facility] TDAP (ADACEL) 2019-04-28 Completed University of VACCINE 00:00:00 [facility] TDAP (ADACEL) 2019-04-28 Completed University of VACCINE 00:00:00 [facility] TDAP (ADACEL) 2019-04-28 Completed University of VACCINE 00:00:00 [facility] TDAP (ADACEL) 2019-04-28 Completed University of VACCINE 00:00:00 [facility] TDAP (ADACEL) 2019-04-28 Completed University of VACCINE 00:00:00 [facility] TDAP (ADACEL) 2019-04-28 Completed University of VACCINE 00:00:00 [facility] TDAP (ADACEL) 2019-04-28 Completed University of VACCINE 00:00:00 [facility] TDAP (ADACEL) 2019-04-28 Completed University of VACCINE 00:00:00 [facility] TDAP (ADACEL) 2019-04-28 Completed University of VACCINE 00:00:00 [facility] TDAP (ADACEL) 2019-04-28 Completed University of VACCINE 00:00:00 [facility] TDAP (ADACEL) 2019-04-28 Completed University of VACCINE 00:00:00 [facility] TDAP (ADACEL) 2019-04-28 Completed University of VACCINE 00:00:00 [facility] TDAP (ADACEL) 2019-04-28 Completed University of VACCINE 00:00:00 [facility] TDAP (ADACEL) 2019-04-28 Completed University of VACCINE 00:00:00 [facility] TDAP (ADACEL) 2019-04-28 Completed University of VACCINE 00:00:00 [facility] TDAP (ADACEL) 2019-04-28 Completed University of VACCINE 00:00:00 [facility] TDAP (ADACEL) 2019-04-28 Completed University of VACCINE 00:00:00 [facility] TDAP (ADACEL) 2019-04-28 Completed University of VACCINE 00:00:00 [facility] TDAP (ADACEL) 2019-04-28 Completed University of VACCINE 00:00:00 [facility] TDAP (ADACEL) 2019-04-28 Completed University of VACCINE 00:00:00 [facility] TDAP (ADACEL) 2019-04-28 Completed University of VACCINE 00:00:00 [facility] TDAP (ADACEL) 2019-04-28 Completed University of VACCINE 00:00:00 [facility] TDAP (ADACEL) 2019-04-28 Completed University of VACCINE 00:00:00 [facility] TDAP (ADACEL) 2019-04-28 Completed University of VACCINE 00:00:00 [facility] TDAP (ADACEL) 2019-04-28 Completed University of VACCINE 00:00:00 [facility] TDAP (ADACEL) 2019-04-28 Completed University of VACCINE 00:00:00 [facility] TDAP (ADACEL) 2019-04-28 Completed University of VACCINE 00:00:00 [facility] TDAP (ADACEL) 2019-04-28 Completed University of VACCINE 00:00:00 [facility] TDAP (ADACEL) 2019-04-28 Completed University of VACCINE 00:00:00 [facility] TDAP (ADACEL) 2019-04-28 Completed University of VACCINE 00:00:00 [facility] TDAP (ADACEL) 2019-04-28 Completed University of VACCINE 00:00:00 [facility] TDAP (ADACEL) 2019-04-28 Completed University of VACCINE 00:00:00 [facility] TDAP (ADACEL) 2019-04-28 Completed University of VACCINE 00:00:00 [facility] TDAP (ADACEL) 2019-04-28 Completed University of VACCINE 00:00:00 [facility] TDAP (ADACEL) 2019-04-28 Completed University of VACCINE 00:00:00 [facility] TDAP (ADACEL) 2019-04-28 Completed University of VACCINE 00:00:00 [facility] TDAP (ADACEL) 2019-04-28 Completed University of VACCINE 00:00:00 [facility] TDAP (ADACEL) 2019-04-28 Completed University of VACCINE 00:00:00 [facility] TDAP (ADACEL) Unknown Completed University VACCINE [facility] Influenza Virus Unknown Completed Universit y of Vaccine Quad .5 mL [facility] 6+ MO Branch (FLUZONE/FLULAVAL/F LUARIX) SARS-COV-2 COVID-19 Unknown Completed Unive rsity of ADI/J&J VACCINE [facility] Pneumococcal 20 Unknown Completed Universit y of Conjugate, PCV20 [place] [facility] (Prevnar 20) Branch SARS-COV-2 COVID-19 Unknown Completed Unive rsity of [facility] [place] [facility] VACCINE 12 YRS+, Branch BIVALENT 0.3ML, IM, (PFIZER ARROYO TOP) Influenza Virus Unknown Completed Universit y of Vaccine - Whole [facility] TDAP (ADACEL) Unknown Completed [facility] Influenza Virus Unknown Completed Universit y of Vaccine Quad .5 mL [facility] IM 6+ MO Branch (FLUZONE/FLULAVAL/F LUARIX) SARS-COV-2 COVID-19 Unknown Completed Unive rsity of ADI/J&J VACCINE [facility] Pneumococcal 20 Unknown Completed Universit y of Conjugate, PCV20 [place] [facility] (Prevnar 20) Branch SARS-COV-2 COVID-19 Unknown Completed Unive rsity of [facility] [place] [facility] VACCINE 12 YRS+, Branch BIVALENT 0.3ML, IM, (PFIZER ARORYO TOP) Influenza Virus Unknown Completed Universit y of Vaccine - Whole [facility] TDAP (ADACEL) Unknown Completed [facility] Influenza Virus Unknown Completed Universit y of Vaccine Quad .5 mL [facility] IM 6+ MO Branch (FLUZONE/FLULAVAL/F LUARIX) SARS-COV-2 COVID-19 Unknown Completed Unive rsity of ADI/J&J VACCINE [facility] Pneumococcal 20 Unknown Completed Universit y of Conjugate, PCV20 [place] [facility] (Prevnar 20) Branch SARS-COV-2 COVID-19 Unknown Completed Unive rsity of [facility] [place] [facility]ACC[facility] 12 YRS+, Branch BIVALENT 0.3ML, IM, (PFIZER ARROYO TOP) Influenza Virus Unknown Completed Universit y of Vaccine - Whole [facility] TDAP (ADACEL) Unknown Completed University of VACCINE [facility] Influenza Virus Unknown Completed Universit y of Vaccine Quad .5 mL [facility] IM 6+ MO Branch (FLUZONE/FLULAVAL/F LUARIX) SARS-COV-2 COVID-19 Unknown Completed Unive rsity of ADI/J&J VACCINE [facility] Pneumococcal 20 Unknown Completed Universit y of Conjugate, PCV20 [facility] dical (Prevnar 20) Branch SARS-COV-2 COVID-19 Unknown Completed Unive rsity of [facility]ACC[facility] 12 YRS+, Branch BIVALENT 0.3ML, IM, (PFIZER ARROYO TOP) Influenza Virus Unknown Completed Universit y of Vaccine - Whole [facility] Vital Signs Vital Name Observation Time Observation Value Comments Source Systolic blood 2022-12-18 17:36:00 111 mm[Hg] Univer [facility]ity of [facility] Diastolic blood 2022-12-18 17:36:00 65 mm[Hg] Unive rsity of [facility] Heart rate 2022-12-18 17:36:00 67 /min [facility] Body height 2022-12-18 17:36:00 180.3 cm [facility] Body weight 2022-12-18 17:36:00 82.192 kg [facility] BMI 2022-12-18 17:36:00 25.27 kg/m2 [facility] Oxygen saturation in 2022-12-18 17:36:00 98 /min [facility] Arterial blood by [facility] Pulse oximetry Branch Respiratory rate 2022-11-30 12:40:00 18 /[facility] 2022-11-30 12:40:00 96 /min University Arterial blood by [facility] Pulse oximetry Branch Systolic blood 2022-11-30 12:39:00 114 mm[Hg] Univer sity of [facility] Diastolic blood 2022-11-30 12:39:00 65 mm[Hg] Unive rsity of [facility] Heart rate 2022-11-30 12:39:00 52 /min [facility] Body temperature 2022-11-30 12:39:00 36.22 Leda Univ ersity of [facility] Branch Body weight 2022-11-30 07:51:00 81.965 kg Universi ty of [facility] BMI 2022-11-30 07:51:00 25.20 kg/m2 Universi ty of [facility] Body height 2022-11-28 23:32:00 180.3 cm [facility] of [facility] Systolic blood 2022-11-22 17:54:00 136 mm[Hg] Univer sity of pressure [facility] Diastolic blood 2022-11-22 17:54:00 85 mm[Hg] Unive rsity of pressure [facility] Heart rate 2022-11-22 17:54:00 90 /min Universi ty of [facility] Body temperature 2022-11-22 17:54:00 37.39 Leda Univ ersity of [facility] Respiratory rate 2022-11-22 17:54:00 18 /min Univ ersity of [facility] Body height 2022-11-22 17:54:00 180.3 cm [facility] Body weight 2022-11-22 17:54:00 79.379 kg [facility] BMI 2022-11-22 17:54:00 24.41 kg/m2 Universi ty of [facility] Oxygen saturation in 2022-11-22 17:54:00 98 /min University Arterial blood by [facility] Pulse oximetry Branch Systolic blood 2022-11-15 15:27:00 131 mm[Hg] Univer sity of pressure [facility] Diastolic blood 2022-11-15 15:27:00 79 mm[Hg] Unive rsity of pressure [facility] Heart rate 2022-11-15 15:27:00 76 /min Universi ty of [facility] Body temperature 2022-11-15 15:27:00 36.28 Leda Univ ersity of [facility] Body height 2022-11-15 15:27:00 152.4 cm [facility] Body weight 2022-11-15 15:27:00 82.192 kg [facility] BMI 2022-11-15 15:27:00 35.39 kg/m2 [facility] Oxygen saturation in 2022-11-15 15:27:00 98 /min University of Arterial blood by [facility] julieta Pulse oximetry Branch Systolic blood 2022-11-14 17:50:00 126 mm[Hg] [facility]iver [facility] Diastolic blood 2022-11-14 17:50:00 79 mm[Hg] Unive [facility] Heart rate 2022-11-14 17:50:00 67 /min [facility] Body temperature 2022-11-14 17:50:00 36.89 Leda [facility] Respiratory rate 2022-11-14 17:50:00 20 /min [facility] Oxygen saturation in 2022-11-14 17:50:00 96 /min University of Arterial blood by [facility] Pulse oximetry Branch Body weight 2022-11-14 09:00:00 81.602 kg [facility] BMI 2022-11-14 09:00:00 35.13 kg/m2 [facility] Body height 2022-11-13 08:01:00 152.4 cm [facility] Systolic blood 2022-11-06 17:40:00 144 mm[Hg] [facility] Diastolic blood 2022-11-06 17:40:00 86 mm[Hg] [facility]ive [facility] Heart rate 2022-11-06 17:40:00 67 /min [facility] Body temperature 2022-11-06 17:40:00 36.78 Leda [facility] Respiratory rate 2022-11-06 17:40:00 14 /min [facility] Oxygen saturation in 2022-11-06 17:40:00 98 /min University of Arterial blood by [facility] Pulse oximetry Branch Body weight 2022-11-05 11:20:00 81.466 kg [facility] BMI 2022-11-05 11:20:00 35.08 kg/m2 [facility] Body height 2022-11-05 00:29:00 152.4 cm [facility] Systolic blood 2022-10-11 18:27:00 124 mm[Hg] [facility] Diastolic blood 2022-10-11 18:27:00 77 mm[Hg] [facility] Heart rate 2022-10-11 18:27:00 98 /min [facility] Body height 2022-10-11 18:27:00 180.3 cm [facility] Body weight 2022-10-11 18:27:00 80.423 kg [facility] BMI 2022-10-11 18:27:00 24.73 kg/m2 [facility] Oxygen saturation in 2022-10-11 18:27:00 94 /min University of Arterial blood by [facility] julieta Pulse oximetry Branch Systolic blood 2022-09-28 19:25:00 115 mm[Hg] [facility] Diastolic blood 2022-09-28 19:25:00 75 mm[Hg] [facility] Heart rate 2022-09-28 19:25:00 84 /min [facility] Body height 2022-09-28 19:25:00 180.3 cm [facility] Body weight 2022-09-28 19:25:00 83.144 kg [facility] BMI 2022-09-28 19:25:00 25.57 kg/m2 [facility] Oxygen saturation in 2022-09-28 19:25:00 97 /min University of Arterial blood by [facility] julieta Pulse oximetry Branch Systolic blood 2022-08-28 20:41:00 129 mm[Hg] [facility] Diastolic blood 2022-08-28 20:41:00 75 mm[Hg] [facility] Heart rate 2022-08-28 20:41:00 84 /min [facility] Body temperature 2022-08-28 20:41:00 37.11 Leda [facility] Body height 2022-08-28 20:41:00 180.3 cm [facility] Body weight 2022-08-28 20:41:00 84.959 kg [facility] BMI 2022-08-28 20:41:00 26.12 kg/m2 [facility] Oxygen saturation in 2022-08-28 20:41:00 97 /min University of Arterial blood by [facility] Pulse oximetry Branch Systolic blood 2022-02-02 16:52:00 129 mm[Hg] [facility] Diastolic blood 2022-02-02 16:52:00 80 mm[Hg] [facility] [place] [facility] [place] Heart rate 2022-02-02 16:51:00 78 /min [facility] Body weight 2022-02-02 16:51:00 83.915 kg [facility] [place] [facility] [place] BMI 2022-02-02 16:51:00 25.80 kg/m2 Universi ty of [facility] Branch Oxygen saturation in 2022-02-02 16:51:00 98 /min University of Arterial blood by [facility] Pulse oximetry Branch Systolic blood 2021-11-27 16:08:00 128 mm[Hg] [facility] Diastolic blood 2021-11-27 16:08:00 80 mm[Hg] Unive rsity of pressure [facility] Heart rate 2021-11-27 16:08:00 103 /min [facility] Body temperature 2021-11-27 16:08:00 37.17 Leda [facility] Body height 2021-11-27 16:08:00 180.3 cm [facility] Body weight 2021-11-27 16:08:00 78.019 kg [facility] BMI 2021-11-27 16:08:00 23.99 kg/m2 [facility] Oxygen saturation in 2021-11-27 16:08:00 100 /min University [facility] Arterial blood by [facility] Pulse oximetry Branch Procedures Procedure Date / Time Performing Clinician Source Performed MAGNESIUM 2022-11-29 12:13:00 Sara Vilchis [facility] COMP. METABOLIC PANEL 2022-11-29 12:13:00 Sara Vilchis [facility] ([id number]) Medical Branch LIPASE 2022-11-29 09:09:00 Sara Vilchis [facility] CBC WITH DIFF 2022-11-29 09:09:00 Sara Vilchis [facility] PROTHROMBIN TIME / INR 2022-11-29 09:09:00 Sara Vilchis Uni [facility] ACTIVATED PARTIAL 2022-11-29 09:09:00 Sara Vilchis [facility] THRMPLAS [facility] LIPASE 2022-11-28 21:20:[address] [facility] COMP. METABOLIC PANEL 2022-11-28 21:20:00 Tez Ramírez [facility] ([id number]) [facility] CBC WITH DIFF 2022-11-28 21:20:[address] [facility] CONSENT/REFUSAL FOR 2022-11-28 20:55:04 Doctor Unassigned, No Un [facility] DIAGNOSIS AND TREATMENT [facility] LIPASE 2022-11-22 19:26:00 Singer [facility] COMP. METABOLIC PANEL 2022-11-22 19:26:00 [facility] ([id number]) [facility] CBC WITH DIFF 2022-11-22 19:26:00 [place], [facility] URINALYSIS 2022-11-22 19:20:00 [facility] ASSIGNMENT OF BENEFITS 2022-11-22 18:54:27 Doctor Unassigned, No [facility] CONSENT/REFUSAL FOR 2022-11-22 17:42:28 Doctor Unassigned, No [facility] BASIC METABOLIC PANEL 2022-11-14 10:21:00 Hailey Cardenas [facility] (NA, K, CL, CO2, GLUCOSE, Medica l Branch BUN, CREATININE, CA) US ABDOMEN COMPLETE 2022-11-13 09:37:37 Joe Treadwell [facility] CT ABDOMEN PELVIS WO 2022-11-13 03:29:30 Regis Obando [facility] CONTRAST Medical Branch LIPASE 2022-11-13 01:34:00 Regis Obando [facility] HEPATIC FUNCTION PANEL 2022-11-13 01:34:00 Regis Obando [facility] ([id number]) (ALB,T.PRO,BILI Medical Branch T,BU/BC,ALT,AST,ALK PHOS) BASIC METABOLIC PANEL 2022-11-13 01:34:00 Regis Obando [facility] (NA, K, CL, CO2, GLUCOSE, Medica l Branch BUN, CREATININE, CA) CBC WITH DIFF 2022-11-13 01:34:00 Regis Obando [facility] ASSIGNMENT OF BENEFITS 2022-11-13 01:18:15 Doctor Unassigned, No [facility] NOTICE OF PRIVACY 2022-11-12 23:36:23 Doctor Unassigned, No [facility] CONSENT/REFUSAL FOR 2022-11-12 23:36:07 Doctor Unassigned, No [facility] DIAGNOSIS AND TREATMENT [facility] Medical Branch LIPASE 2022-11-06 10:42:00 Lupis Soria [facility] Medical Branch MAGNESIUM 2022-11-06 10:42:00 [facility] BASIC METABOLIC PANEL 2022-11-06 10:42:00 Lupis Soria [facility] (NA, K, CL, CO2, GLUCOSE, Medica l Branch BUN, CREATININE, CA) CBC WITH DIFF 2022-11-06 10:42:00 [facility] LIPID PANEL ([id number])(TOTAL 2022-11-05 11:25:00 Deric Santos [facility] CHOLESTEROL, Medical Branch TRIGLYCERIDES, HDL) CT ABDOMEN PELVIS WO 2022-11-04 18:25:16 Caprice [facility] HB ECG ROUTINE & RHYTHM 2022-11-04 17:55:58 Caprice Hodge [facility] STRIP [facility] URINALYSIS 2022-11-04 17:52:00 Caprice Hodge [facility] LIPASE 2022-11-04 17:50:00 Caprice Hodge [facility] TROPONIN I 2022-11-04 17:50:00 Caprice Hodge [facility] COMP. METABOLIC PANEL 2022-11-04 17:50:00 Caprice Hodge [facility] ([id number]) Medical Branch ETHANOL 2022-11-04 17:50:00 Caprice Hodge [facility] CBC WITH DIFF 2022-11-04 17:50:00 Caprice Hodge [facility] CONSENT/REFUSAL FOR 2022-11-04 17:24:22 Doctor Unassigned, No [facility] [place] [facility]REAT[facility] CONSENT/REFUSAL FOR 2022-09-28 19:06:21 Doctor Unassigned, No [facility] CBC WITH DIFF 2022-08-28 21:49:00 Michelle Justice [facility] SARS-COV-2 COVID-19 2022-08-28 21:43:24 Michelle Justice [facility] ANTONI-SUCROSE VACCINE [address] [place] [address] Branch YRS+, BIVALENT 0.3ML, IM, (PFIZER ARROYO TOP) PNEUMOCOCCAL 20 CONJUGATE 2022-08-28 21:43:00 Michelle Justice Un [facility] (PREVNAR 20) VACCINE Medical [facility] INSURANCE CORRESPONDENCE 2022-08-21 05:01:00 Doctor Unassigned, No [facility] AUTHORIZATION FOR RELEASE 2021-11-27 05:01:00 Doctor Unassigned, No [facility] Encounters Start End Encounter Admission Attending Care Care Encounter Source Date/Time Date/Time Type Type Clinicians Facility Department ID 2023-02-17 [facility] [id number] [facility] 00:00:00 Encounter [facility] 2021-01-31 Emergency [facility] [id number] Univers 04:31:31 ity of [facility] 2021-01-30 Emergency [facility] [id number] Univers 12:18:18 ity of [facility] 2021-01-30 Emergency [facility] [id number] Univers 09:17:48 ity of [facility] 2021-01-30 Emergency [facility] [id number] Univers 08:18:41 ity of [facility] 2021-01-30 Emergency [facility] [id number] Univers 04:52:11 ity of [facility] 2021-01-28 Emergency [facility] [id number] Univers 18:24:20 ity of [facility] 2021-01-28 Emergency [facility] [id number] Univers 04:33:22 ity [facility] 2021-01-28 Outpatient MILY [facility] [id number] Univers 04:31:08 BRODIE ity of [facility] 2021-01-28 Emergency [facility] [id number] Univers 01:58:43 ity of [facility] 2021-01-27 Emergency [facility] [id number] Univers 23:31:06 ity of [facility] 2021-01-27 Emergency [facility] [id number] Univers 21:26:13 ity [facility] 2023-03-01 2023-03-01 Telephone [facility] 1.2.840.114 [id number] Univers 00:00:00 00:00:00 [facility] [id number] i ty of [facility] [place] [id number] [address] 2023-01-29 2023-01-29 Outpatient R ROSS GUNTER [facility] [id number] Univers 10:20:00 10:20:00 ROSS GUNTER [facility] 2023-01-11 2023-01-11 Outpatient R ROSS GUNTER [facility] [id number] Univers 14:00:00 14:00:00 ROSS GUNTER [facility] 2022-12-18 2022-12-18 Online Journalist Lab, Ang - Db [facility] 1.2.840.1 14 [id number] Univers 14:00:00 14:15:00 Visit Michelle Justice [facility] 350.1.13.10 ity [facility] 4.2.7.2.686 Real as NATASHA?BLEA [id number] [address] MEDICAL OFFICE BUILDING 2022-12-18 2022-12-18 Outpatient Sara JUSTICE [facility] [id number] Univers 13:00:00 13:10:24 MICHELLE combs [facility] 2022-12-18 2022-12-18 Office Vinh [facility] 1.2.840.114 [id number] Univers 13:00:00 13:10:24 Visit Michelle HEALTH 350.1.13.10 it y of [place] 4.2.7.2.686 Real as NATASHA?BLEA [id number] [address] OFFICE [facility] 2022-12-18 2022-12-18 Patient Doctor CARY 1.2.840.114 [id number] Univers 00:00:00 00:00:00 Secure Msg Unassigned, SEAN 350.1.13.10 ity of [place] [facility] 4.2.7.2.686 Real as [id number] [address] 2022-12-17 2022-12-17 Outpatient R ROSS GUNTER [facility] [id number] Univers 16:20:00 16:20:00 ROSS GUNTER gautam [facility] 2022-12-17 2022-12-17 [facility] [id number] Univers 00:00:00 00:00:00 Ross HEALTH 350.1.13.10 ity of [place] 4.2.7.2.686 Real as NATASHA?BLEA [id number] [address] OFFICE [facility] 2022-12-14 2022-12-14 Telephone Vinh [facility] 1.2.853.739 [id number] Univers 00:00:00 00:00:00 Michelle HEALTH 350.1.13.10 it y of [place] 4.2.7.2.686 Real as NATASHA?BLEA [id number] [address] OFFICE [facility] 2022-12-14 2022-12-14 Patient Doctor [facility] 1.2.840.114 [id number] Univers 00:00:00 00:00:00 Secure Msg Unassigned, HEALTH 350.1.13.10 ity of [place] 4.2.7.2.686 Real as NATASHA?BLEA [id number] [address] OFFICE [facility] 2022-12-12 2022-12-[address] [facility] [id number] Univers 13:30:00 13:30:00 MICHELLE combs [facility] 2022-12-06 2022-12-06 [facility] 1.2.391.877 [id number] Univers 00:00:00 00:00:00 Michelle HEALTH 350.1.13.10 it y of [place] 4.2.7.2.686 Real as NATASHA?BLEA [id number] [address] 2022-12-04 2022-12-04 Transition MANJINDER Francisco 1.2.840.114 [id number] Univers 00:00:00 00:00:00 of Care Anderson Valiente JUSTINO 350.1.13.10 it[place] [id number] [facility] [address] 2022-12-04 2022-12-04 [facility]phone [facility] 1.2.868.731 [id number] Univers 00:00:00 00:00:00 Michelle HEALTH 350.1.13.10 it y of [place] 4.2.7.2.686 Real as NATASHA?BLEA [id number] [address] 2022-11-28 2022-11-30 Outpatient X TOM [facility] [id number] Univers 16:10:00 11:07:00 DERIC combs [facility] 2022-11-28 2022-11-30 Emergency Tez Ramírez [facility] 1.2. 840.114 [id number] Univers 16:10:00 11:07:00 Deric Santos 350.1.13.10 ity of [place].7.2.[place] [id number] [facility] [address] 2022-11-22 2022-11-22 Emergency X [facility] ERT [id number] Univers 12:58:00 15:41:00 JAIRO combs [facility] 2022-11-22 2022-11-22 Emergency [facility] 1.2.592.485 [id number] Univers 12:58:00 15:41:00 Jairo CHAPMAN 350.1.13.10 i ty of [place]2.[place] [id number] [place] [address] 2022-11-16 2022-11-16 Telephone Lyric [facility] 1.2.979.968 [id number] Univers 00:00:00 00:00:00 [facility] 350.1.13.10 ity of [facility] 4.2.7.2.686 Real as NATASHA?BLEA [id number] [address] MEDICAL OFFICE [facility] 2022-11-15 2022-11-15 Outpatient R LYRIC ROSS [facility] [id number] Univers 10:20:00 11:30:24 [facility]22-[facility]-15 2022-11-15 [facility] 1.2.840.114 [id number] Univers 10:20:00 11:30:24 Visit [facility] 350.1.13.10 ity of [place] 4.2.7.2.686 Real as NATASHA?BLEA [id number] [address] MEDICAL OFFICE [facility] 2022-11-15 2022-11-15 Transition MANJINDER Olivier 1.2.840.114 [id number] Univers 00:00:00 00:00:00 of Care Jenniffer B[place]O 350.1.13.10 it y of [place]2.[place] [id number] [facility] [address] 2022-11-12 2022-11-14 Outpatient U HERI [facility] [id number] Univers 18:51:00 16:49:00 JOE combs [facility] 2022-11-12 2022-11-14 Emergency Regis Obando [facility] 1.2.840.1 14 [id number] Univers 18:51:00 16:49:00 Joe Treadwell [facility] 350.1.13.10 ity of [place]2.7.2.[place] [id number] [facility] 114 Branch (CLC) 2022-11-12 2022-11-12 Orders Doctor CARY 1.2.840.114 [id number] Univers 00:00:00 00:00:00 Only Unassigned, SEAN 350.1.13.10 ity of [place] [facility] 4.2.7.2.686 Real as [id number] [facility] [address] 2022-11-09 2022-11-09 Telephone Vinh NMLIZZETTE 1.2.028.304 [id number] Univers 00:00:00 00:00:00 [facility] 350.1.13.10 it y of [facility] 4.2.7.2.686 Real as NATASHA?BLEA [id number] Md [address] MEDICAL OFFICE BUILDING 2022-11-07 2022-11-07 Transition MANJINDER Francisco 1.2.840.114 [id number] Univers 00:00:00 00:00:00 of Care Anderson [place] 350.1.13.10 [place]y [place]2.[place] [id number] [facility] [address] 2022-11-07 2022-11-07 Patient Doctor CARY 1.2.840.114 [id number] Univers 00:00:00 00:00:00 Secure Msg Unassigned, SEAN 350.1.13.10 ity of [place] [facility] 4.2.7.2.686 Real as [id number] [facility] 019 [address] 2022-11-04 2022-11-06 Outpatient X TOM [facility] [id number] Univers 12:36:00 13:55:00 DERIC combs of [facility] 2022-11-04 2022-11-06 Emergency Caprice Hodge [facility] 1.2.840.1 14 [id number] Univers 12:36:00 13:55:00 Deric Santos 350.1.13.10 ity of [place]2.[place] [id number] [facility] [address] 2022-10-31 2022-10-31 Refill Vinh [facility] 1.2.840.114 [id number] Univers 00:00:00 00:00:00 Michelle HEALTH 350.1.13.10 it y of [place] 4.2.7.2.686 Real as NATASHA?BLEA [id number] [address] OFFICE [facility] 2022-10-24 2022-10-24 Refsophie Shaffer [facility] 1.2.840.114 [id number] Univers 00:00:00 00:00:00 Lucy HEALTH 350.1.13.10 it y of [place] 4.2.7.2.686 Real as NATASHA?BLEA [id number] [address] MEDICAL OFFICE [facility] 2022-10-22 2022-10-22 Telephone [facility] 1.2.172.129 [id number] Univers 00:00:00 00:00:00 [facility] 350.1.13.10 ity of [place] 4.2.7.2.686 Real as NATASHA?BLEA [id number] [address] OFFICE [facility] 2022-10-11 2022-10-11 Outpatient R ROSS GUNTER [facility] [id number] Univers 13:40:00 13:55:29 LYRIC ROSS [facility] 2022-10-11 2022-10-11 Office [facility] 1.2.840.114 [id number] Univers 13:40:00 13:55:29 Visit [facility] 350.1.13.10 ity of [place] 4.2.7.2.686 Real as NATASHA?BLEA [id number] [address] OFFICE [facility] 2022-10-08 2022-10-08 Outpatient R [facility] [id number] Univers 13:00:00 13:00:00 ity of [facility] 2022-10-04 2022-10-04 [facility] 1.2.840.114 [id number] Univers 00:00:00 00:00:00 Michelle HEALTH 350.1.13.10 it y of [place] 4.2.7.2.686 Real as NATASHA?BLEA [id number] [address] OFFICE BUILDING 2022-10-01 2022-10-01 Refill Vinh [facility] 1.2.840.114 [id number] Univers 00:00:00 00:00:00 Michelle HEALTH 350.1.13.10 it y [facility] 4.2.7.2.686 Real as NATASHA?BLEA [id number] [address] OFFICE [facility] 2022-09-28 2022-09-28 Office [facility] 1.2.840.114 [id number] Univers 14:20:00 14:40:00 Visit [facility] 350.1.13.10 ity of [place] 4.2.7.2.686 Real as NATASHA?BLEA [id number] [address] OFFICE [facility] 2022-09-28 2022-09-28 Outpatient R ROSS GUNTER [facility] [id number] Univers 14:20:00 14:20:00 ROSS GUNTER [facility] 2022-09-28 2022-09-28 Orders Doctor TOWNSEND 1.2.840.114 [id number] Univers 00:00:00 00:00:00 Only Unassigned, SEAN 350.1.13.10 ity of [place] [facility] 4.2.7.2.686 Real as [id number] [address] 2022-09-05 2022-09-05 Telephone [facility] 1.2.562.004 [id number] Univers 00:00:00 00:00:00 [facility] 350.1.13.10 ity of [place] 4.2.7.2.686 Real as NATASHA?BLEA [id number] [address] OFFICE [facility] 2022-08-29 2022-08-29 Telephone Vinh [facility] 1.2.579.083 [id number] Univers 00:00:00 00:00:00 Michelle HEALTH 350.1.13.10 it y [facility] 4.2.7.2.686 Real as NATASHA?BLEA [id number] [address] OFFICE [facility] 2022-08-29 2022-08-29 Pre Visit CARY Carroll 1.2.635.704 [id number] Univers 00:00:00 00:00:00 Outreach Jh HENDRICKSONY 350.1.13.10 ity of HOSPITAL 4.2.7.2.686 Real as [id number] [facility] [address] 2022-08-28 2022-08-28 Online Journalist Lab, Ang - Db [facility] 1.2.840.1 14 [id number] Univers 16:45:00 17:00:00 Visit Unknown, [facility] HEALTH 350.1.13.10 ity of [place] 4.2.7.2.686 Real as NATASHA?BLEA [id number] [facility] [address] MEDICAL OFFICE BUILDING 2022-08-28 2022-08-28 Outpatient R VINH [facility] [id number] Univers 15:30:00 16:41:27 MICHELLE ity of [facility] 2022-08-28 2022-08-28 Office Vinh [facility] 1.2.840.114 [id number] Univers 15:30:00 16:41:27 Visit [facility] 350.1.13.10 it y of [place] 4.2.7.2.686 Real as NATASHA?BLEA [id number] [facility] [address] MEDICAL OFFICE [facility] 2022-08-21 2022-08-21 Orders Doctor CARY 1.2.840.114 [id number] Univers 00:00:00 00:00:00 Only Unassigned, SEAN 350.1.13.10 ity of [place] HOSPITAL 4.2.7.2.686 Real as [id number] [facility] [address] 2022-07-30 2022-07-30 [facility]ill [facility] 1.2.840.114 [id number] Univers 00:00:00 00:00:00 Michelle HEALTH 350.1.13.10 it y of [place] 4.2.7.2.686 Real as NATASHA?BLEA [id number] [facility] [address] MEDICAL OFFICE BUILDING 2022-06-13 2022-06-13 Telephone [facility] 1.2.840.114 [id number] Univers 00:00:00 00:00:00 Lucy HEALTH 350.1.13.10 it y of [place] 4.2.7.2.686 Real as NATASHA?BLEA [id number] Md nidhi [address] OFFICE [facility] 2022-05-29 2022-05-29 Outpatient R VINH [facility] [id number] Univers 11:00:00 11:00:00 MICHELLE combs [facility] 2022-05-29 2022-05-29 Outpatient R VINH [facility] [id number] Univers 11:00:00 11:00:00 MICHELLE gautam [facility] 2022-05-15 2022-05-15 Outpatient R UNKNOWN, [facility] [id number] [employer] 14:00:00 14:00:00 ATTENDING gautam [facility] 2022-02-06 2022-02-06 Outpatient R EVON, [facility] [id number] [employer] 15:14:07 23:59:00 CHETNA gautam [facility] 2022-02-05 2022-02-05 [facility] [id number] Univers 00:00:00 00:00:00 Michelle [facility]ALTH [id number] it y of [place] [id number] Real as NATASHA?BLEA [id number] [address] 2022-02-03 2022-02-03 [facility] [id number] Univers 00:00:00 00:00:00 Lucy HEALTH 350.1.13.10 it y of [place] 4.2.7.2.686 Real as NATASHA?BLEA [phone] [address] OFFICE [facility] 2022-02-03 2022-02-03 [facility] 1.2.840.114 [id number] Univers 00:00:00 00:00:00 Michelle HEALTH 350.1.13.10 it y of [place] 4.2.7.2.686 Real as NATASHA?BLEA [phone] [address] 2022-02-02 2022-02-02 Online Journalist Lab, Ang - [facility] 1.2.840.1 14 [id number] Univers 12:00:00 12:15:00 Visit Lucy Shaffer [facility] 350.1.13 .10 ity of [place] 4.2.7.2.686 Real as NATASHA?BLEA [phone] Md nidhi [facility] [address] MEDICAL OFFICE [facility] 2022-02-02 2022-02-[address] [facility] [id number] Univers 11:30:00 12:07:03 CHETNA ity [facility] 2022-02-02 2022-02-02 Office [facility] 1.2.840.114 [id number] Univers 11:30:00 12:07:03 Visit [facility] 350.1.13.10 it y of [place] 4.2.7.2.686 Real as NATASHA?BLEA [phone] [address] OFFICE [facility] 2022-01-22 2022-01-22 Outpatient R BLAIR GALINDO [facility] 10 [id number] Univers 09:00:00 09:00:00 BLAIR GALINDO i ty [facility] 2022-01-08 2022-01-08 Outpatient R BLAIR GALINDO [facility] 10 [id number] Univers 10:30:00 10:30:00 BLAIR GALINDO i ty [facility] 2022-01-08 2022-01-08 [facility] 1.2.840.114 [id number] Univers 00:00:00 00:00:00 [facility] 350.1.13.10 it y of [place] 4.2.7.2.686 Real as NATASHA?BLEA [phone] [address] MEDICAL OFFICE [facility] 2021-11-27 2021-11-27 Outpatient R VINH [facility] [id number] Univers 11:00:00 11:50:48 MICHELLE itgautam [facility] 2021-11-27 2021-11-27 Office [facility] 1.2.840.114 [id number] Univers 11:00:00 11:50:48 Visit Michelle [facility] 350.1.13.10 it y of [place] 4.2.7.2.686 Real as NATASHA?BLEA [phone] [address] MEDICAL OFFICE [facility] 2021-11-27 2021-11-27 Outpatient R VINH [facility] [id number] Univers 11:00:00 11:50:48 MICHELLE combs of [facility] 2021-11-27 2021-11-27 Orders Doctor CARY 1.2.840.114 [id number] Univers 00:00:00 00:00:00 Only Unassigned, SEAN 350.1.13.10 ity of Am[place] [facility] 4.2.7.2.686 Real as [phone] [address] 2021-11-24 2021-11-24 Telephone [facility] 1.2.840.114 [id number] Univers 00:00:00 00:00:00 [facility] 350.1.13.10 it y of [place] 4.2.7.2.686 Real as NATASHA?BLEA [phone] [address] OFFICE [facility] 2021-11-08 2021-11-08 Outpatient R DIMITRIS [facility] [id number] Univers 10:30:00 10:30:00 HORTENSIAFANG combs [facility] 2021-10-27 2021-10-27 Telephone [facility] 1.2.840.114 [id number] Univers 00:00:00 00:00:00 [facility] 350.1.13.10 it y of [place] 4.2.7.2.686 Real as NATASHA?BLEA [phone] [address] OFFICE [facility] 2021-09-13 2021-09-13 Telephone [facility] 1.2.840.114 [id number] Univers 00:00:00 00:00:00 Lucy HEALTH 350.1.13.10 it y of [place] 4.2.7.2.686 Real as NATASHA?BLEA [id number] [address] OFFICE [facility] 2021-08-14 2021-08-14 Refill [facility] 1.2.840.114 [id number] Univers 00:00:00 00:00:00 Lucy HEALTH 350.1.13.10 it y of [place] 4.2.7.2.686 Real as NATASHA?BLEA [phone] [address] OFFICE [facility] 2021-08-14 2021-08-14 [facility]ie [facility] 1.2.840.114 [id number] Univers 00:00:00 00:00:00 Wondiful A HEALTH 350.1.13.10 ity of [place] 4.2.7.2.686 Real as NATASHA?BLEA [id number] [address] 2021-08-14 2021-08-14 [facility] 1.2.840.114 [id number] Univers 00:00:00 00:00:00 Wondiful A HEALTH 350.1.13.10 ity of [place] 4.2.7.2.686 Real as NATASHA?BLEA [phone] [address] 2021-08-11 2021-08-11 Telephone [facility] 1.2.840.114 [id number] [facility] 00:00:00 00:00:00 Lucy HEALTH 350.1.13.10 it y of [place] 4.2.7.2.686 Real as NATASHA?BLEA [id number] [address] 2021-08-10 2021-08-10 Telephone [facility] 1.2.840.114 [id number] Univers 00:00:00 00:00:00 Lucy HEALTH 350.1.13.10 it y of [place] 4.2.7.2.686 Real as NATSAHA?BLEA [phone] [address] 2021-08-09 2021-08-09 Online Journalist Lab, [facility] 1.2.840.1 14 [id number] Univers 13:30:00 13:37:44 Visit Lucy Shaffer [place] HEALTH 350.1.13 .10 ity of [place] 4.2.7.2.686 Real as NATASHA?BLEA [phone] Md nidhi NANCE [address] MEDICAL OFFICE [facility] 2021-08-09 2021-08-[address] [facility] [id number] Univers 13:00:00 13:29:43 [facility] 2021-08-09 2021-08-09 Office [facility] 1.2.840.114 [id number] Univers 13:00:00 13:15:00 Visit [facility] 350.1.13.10 it y of [place] 4.2.7.2.686 Real as NATASHA?BLEA [phone] [address] MEDICAL OFFICE [facility] 2021-08-09 2021-08-[address] [facility] [id number] Univers 13:00:00 13:00:00 [facility] 2021-07-11 2021-07-11 Outpatient Sara [facility] [id number] Univers 13:30:00 14:00:44 [facility] 2021-07-11 2021-07-11 [facility] [id number] Univers 13:30:00 14:00:44 [facility] 2021-07-11 2021-07-11 Office [facility] 1.2.840.114 [id number] Univers 13:30:00 14:00:00 Visit [facility] 350.1.13.10 it y of [place] 4.2.7.2.686 Real as NATASHA?BLEA [id number] [address] OFFICE [facility] 2021-07-11 2021-07-11 Outpatient R [facility] [id number] Univers 13:30:00 13:30:00 [facility] 2021-07-11 2021-07-11 Orders Doctor TOWNSEND 1.2.840.114 [id number] Univers 00:00:00 00:00:00 Only Unassigned, SEAN 350.1.13.10 ity of Amesti [facility] 4.2.7.2.686 Real as [phone] [address] 2021-06-29 2021-06-29 Orders Doctor CARY 1.2.840.114 [id number] Univers 00:00:00 00:00:00 Only Unassigned, SEAN 350.1.13.[address] [facility] 4.2.7.2.686 Real as [id number] [facility] [address] 2021-06-16 2021-06-16 Refsophie [facility] 1.2.840.114 [id number] Univers 00:00:00 00:00:00 Wondiful A HEALTH 350.1.13.10 ity of [place] 4.2.7.2.686 Real as NATASHA?BLEA [phone] Md israpam HY[address] MEDICAL OFFICE BUILDING 2021-06-12 2021-06-13 Emergency X Taras US [facility] ERT [id number] Univers 20:06:00 02:41:00 ity of [facility] 2021-06-12 2021-06-13 Emergency Taras Us [facility] 1.2.840.114 [id number] Univers 20:06:00 02:41:00 Mel CHAPMAN 350.1.13.10 i ty of [place].2.686 [place] [phone] [facility] [address] 2021-06-12 2021-06-13 Emergency X Taras US [facility] ERT [id number] Univers 20:06:00 02:41:00 ity of [facility] 2021-04-07 2021-04-07 Outpatient R BLAIR GALINDO [facility] 10 [id number] Univers 13:00:00 13:00:00 BLAIR GALINDO i ty of [facility] 2021-03-23 2021-03-23 Outpatient R SAMI [facility] [id number] Univers 15:30:00 15:30:00 MAURIZIO [facility] 2021-03-16 2021-03-16 Outpatient R SAMI [facility] [id number] Univers 15:30:00 15:30:00 MAURIZIO [facility] 2021-03-03 2021-03-03 Outpatient R KARTHIKEYAN [facility] [id number] Univers 08:30:00 08:30:00 SADIQ ity of [facility] 2021-02-09 2021-02-09 Transition MANJINDER [place] 1.2.840.114 [id number] Univers 00:00:00 00:00:00 of Care Sayra Duncan JUSTINO 350.1.13.10 i ty of [place] [id number] [address] 2021-02-05 2021-02-08 Outpatient X KIMO [facility] DEWEY [id number] Univers 10:43:00 17:37:00 CHIDI combs [facility] 2021-02-05 2021-02-08 Emergency Bonilla Lennox [facility] 1.2.840. 114 [id number] Univers 10:43:00 17:37:00 Chidi Krishnan 350.1.13.10 ity of [place] [facility] 4.2.7.2.686 [facility] [id number] [address] 2021-02-02 2021-02-02 Transition MANJINDER Francisco 1.2.840.114 [id number] Univers 00:00:00 00:00:00 of Care Anderson Valiente JUSTINO 350.1.13.10 [place] [id number] [address] 2021-01-27 2021-02-01 Inpatient X MEDINA [facility] [id number] Univers 22:36:00 16:30:00 GIRISH combs [facility] 2021-01-27 2021-02-01 Hospital JahairaerikafelisaUrszula [facility] 1.2.840. 114 [id number] Univers 22:36:00 16:30:00 Encounter Girish Haney 350.1.13.10 ity of [place] [facility] 4.2.7.2.686 [facility] [phone] [address] 2021-01-31 2021-01-31 Patient Fabiano [facility] 1.2.840.114 [id number] Univers 00:00:00 00:00:00 Outreach Wendy MEJIA 350.1.13.10 i ty of [place] 4.2.7.2.686 Real as NATASHA?BLEA [phone] Md nidhi NANCE [address] [place] [address] MEDICAL OFFICE BUILDING 2021-01-21 2021-01-21 Emergency [facility] 1.2.973.729 [id number] Univers 03:45:00 05:15:00 Jairo Chapman 350.1.13.10 i ty of [place] 4.2.7.2.686 [place] [id number] [facility] [address] 2021-01-21 2021-01-21 Emergency X [facility] ERT [id number] Univers 03:45:00 05:15:00 JAIRO combs [facility] 2021-01-10 2021-01-10 Transition ErinGilberto wileytono 1.2.840.114 [id number] Univers 00:00:00 00:00:00 of Care Sayra Dakota Badillo 350.1.13.10 i ty of [place]2.7.2.[place] [phone] [facility] [address] 2021-01-04 2021-01-08 Hospital Yefri Claudio [facility] 1.2.840.1 14 [id number] Univers 16:12:00 13:20:00 Encounter Joe Treadwell 350.1.13.10 ity of [place].2.[address] [place] [facility] [phone] [address] ([facility]) 2021-01-04 2021-01-08 Inpatient X HERI [facility] [id number] Univers 16:12:00 13:20:00 JOE angiegautam [facility] 2021-01-08 2021-01-08 Telephone Shelby Diaz [facility] 1.2.840.114 [id number] Univers 00:00:00 00:00:00 Health 350.1.13.10 it [place].686 [place] [phone] [address] ([facility]) 2021-01-05 2021-01-05 Surgery Karthikeyan [facility] 1.2.840.114 [id number] Univers 13:15:00 14:36:00 Sadiq SPECIALTY 350.1.13.10 ity of CARE 4.2.7.2.686 [facility] AT [phone] Md nidhi DARNELL 020 [facility] 2021-01-04 2021-01-04 Emergency [facility] 1.2.347.652 [id number] Univers 12:49:00 15:28:00 Jairo Chapman 350.1.13.10 i ty of [place] 4.2.7.2.686 [facility] [phone] [facility] [address] 2020-12-23 2020-12-23 Transition Portia Gilbertotono 1.2.840.114 [id number] Univers 00:00:00 00:00:00 of Care Debra Vega Badillo 350.1.13.10 i ty of [place] 4.2.7.2.686 [facility] [phone] [facility] [address] 2020-12-15 2020-12-22 Hospital Jairo [facility] 1.2.840.1 14 [id number] Univers 09:02:00 14:05:00 Encounter Deric Santos 350.1.13.10 ity of [place] 4.2.7.2.[address] [place] [address] [phone] [facility] [address] 2020-12-15 2020-12-22 Inpatient X TOM [facility] [id number] Univers 09:02:00 14:05:00 DERIC combs [facility] 2020-12-19 2020-12-19 Outpatient R [facility] [id number] Univers 16:00:00 16:00:00 itgautam [facility] 2020-12-15 2020-12-[address] [facility] [id number] Univers 14:30:00 14:30:00 WONDIFUL ity o f [facility] 2020-12-12 2020-12-12 Telephone Yuliana [facility] 1.2.840.114 [id number] Univers 00:00:00 00:00:00 Wondiful A Health 350.1.13.10 ity of [place] 4.2.7.2.686 Real as Natasha?Blea [phone] Md nidhi nance [address] [place] [address] Medical Office Building 2020-12-11 2020-12-11 Emergency X JULISSA [facility] ERT [id number] Univers 09:03:00 12:08:00 CATALINA ity [facility] 2020-12-11 2020-12-11 Emergency [facility] 1.2.840.114 [id number] Univers 09:03:00 12:08:00 Catalina Chapman 350.1.13.10 ity of [place] 4.2.7.2.686 [place] [phone] [facility] [address] 2020-12-01 2020-12-01 Transition Manjinder Pearce 1.2.840.114 [id number] Univers 00:00:00 00:00:00 of Care Debra Badillo 350.1.13.10 i ty of [place].2.7.2.[place] [phone] [facility] [address] 2020-11-23 2020-11-30 Hospital Malcolm Altman [facility] 1.2.840. 114 [id number] Univers 19:30:00 16:06:00 Encounter Girish Haney 350.1.13.10 ity of [place] 4.2.7.2.686 [facility] [phone] [place] [address] 2020-11-23 2020-11-30 Inpatient X ANUPAMA [facility] [id number] Univers 19:30:00 16:06:00 MALCOLM ity of [facility] 2020-11-23 2020-11-23 Orders Doctor TOWNSEND 1.2.840.114 [id number] Univers 00:00:00 00:00:00 Only Unassigned, SEAN 350.1.13.10 ity of Amesti [facility] 4.2.7.2.686 Real as [id number] [facility] [address] 2020-11-08 2020-11-08 Shanta Bridges [facility] 1.2.840.114 [id number] Univers 00:00:00 00:00:00 Wondiful A Health 350.1.13.10 ity of [place] 4.2.7.2.686 Real as Professio [id number] [address] Office [facility] 2020-11-04 2020-11-04 Office [facility] 1.2.840.114 [id number] Univers 10:43:14 11:27:21 Visit Wondiful A Health 350.1.13.10 ity of [place] 4.2.7.2.686 Real as Professio [phone] [address] Office [facility] 2020-11-04 2020-11-04 Outpatient R YULIANA [facility] [id number] Univers 10:45:00 10:45:00 WONDIFUL ity o f [facility] 2020-10-30 2020-10-31 [facility] 1.2.543.413 [id number] Univers 22:35:00 02:17:00 Urszula Johnson [place] 350.1.13.10 ity of [place] 4.2.7.2.686 [place] [facility] [phone] [place] [address] 2020-10-31 2020-10-31 Telephone [facility] 1.2.840.114 [id number] Univers 00:00:00 00:00:00 Wondiful A Health 350.1.13.10 ity of [place] 4.2.7.2.686 Real as Professio [phone] [address] Office [facility] 2020-10-28 2020-10-28 Telephone [facility] 1.2.840.114 [id number] Univers 00:00:00 00:00:00 Wondiful A Health 350.1.13.10 ity of [place] 4.2.7.2.686 Real as Professio [phone] [address] Office [facility] 2020-10-18 2020-10-18 Emergency [facility] 1.2.887.047 [id number] Univers 02:29:00 04:26:00 Jairo Chapman 350.1.13.10 i ty of [place] 4.2.7.2.686 [place] [phone] [place] [address] 2020-10-18 2020-10-18 Telephone [facility] 1.2.840.114 [id number] Univers 00:00:00 00:00:00 Wondiful A Health 350.1.13.10 ity of [place] 4.2.7.2.686 Real as Professio [phone] [address] One 2020-10-13 2020-10-13 Emergency Replaced by [facility] 1.2.705.156 [id number] Univers 02:21:00 05:01:00 Urszula Johnson [place] 350.1.13.10 ity of [place] 4.2.7.2.686 [facility] [phone] [address] 2020-10-10 2020-10-10 Telephone [facility] 1.2.840.114 [id number] Univers 00:00:00 00:00:00 Wondiful A Health 350.1.13.10 ity of [place] 4.2.7.2.686 Real as Professio [id number] [address] One 2020-10-07 2020-10-07 Orders Doctor CARY 1.2.840.114 [id number] Univers 00:00:00 00:00:00 Only Unassigned, SEAN 350.1.13.10 ity of Amesti [facility] 4.2.7.2.686 Real as [phone] [facility] [address] 2020-10-06 2020-10-06 Telephone [facility] 1.2.840.114 [id number] Univers 00:00:00 00:00:00 Wondiful A Health 350.1.13.10 ity of [place] 4.2.7.2.686 Real as Professio [phone] [address] One 2020-10-06 2020-10-06 Telephone [facility] 1.2.840.114 [id number] Univers 00:00:00 00:00:00 Wondiful A Health 350.1.13.10 ity of [place] 4.2.7.2.686 Real as Professio [phone] Md dical nal 044 [facility] 2020-10-03 2020-10-03 Office Yuliana [facility] 1.2.840.114 [id number] [facility] 16:28:13 17:20:02 Visit Wondiful A Health 350.1.13.10 ity of [place] 4.2.7.2.686 Real as Professio [phone] Md dical nal 044 [facility] 2020-10-03 2020-10-[address] [facility] [id number] [facility] 16:30:00 16:30:00 WONDIFUL ity o f [facility] 2020-09-30 2020-09-30 Telephone [facility] 1.2.840.114 [id number] [facility] 00:00:00 00:00:00 Wondiful A Health 350.1.13.10 ity of [place] 4.2.7.2.686 Real as Professio [phone] Md dical nal 044 [facility] 2020-09-28 2020-09-28 Emergency [facility] 1.2.001.396 [id number] 08:21:00 11:41:00 Lennox [place] 350.1.13.10 [place] 4.2.7.2.686 [place] [id number] [facility] 2020-09-28 2020-09-28 Emergency [facility] 1.2.696.327 [id number] [facility] 08:21:00 11:41:00 Lennox [place] 350.1.13.10 i ty of [place] 4.2.7.2.686 [place] [phone] [address] 2020-09-27 2020-09-27 Online Journalist Tonia Connolly Lab Main [facility] 1.2.8 40.114 [id number] [facility] 17:06:57 17:21:57 Visit Mike Story [place] 350.1.13.10 ity of [place] 4.2.7.2.686 [place] Profess[place] [phone] Md dical nal 353 [facility] 2020-09-27 2020-09-27 Office [facility] 1.2.840.114 [id number] 16:25:25 16:55:20 Visit [facility] 350.1.13.10 [place] 4.2.7.2.686 Professio [phone] nal [facility] Office Building One 2020-09-27 2020-09-27 Office [facility] 1.2.840.114 [id number] Univers 16:25:25 16:55:20 Visit [facility] 350.1.13.10 i ty of [place] 4.2.7.2.686 Real as Professio [phone] Md dical [address] Office Building One 2020-09-27 2020-09-[address] [facility] [id number] Univers 16:30:00 16:30:00 MIKE combs o f [facility] 2020-09-26 2020-09-26 Transition Manjinder Pearce 1.2.840.114 [id number] Univers 00:00:00 00:00:00 of Care Debra Badillo 350.1.13.10 i ty of [place] 4.2.7.2.686 [place] [phone] [facility] [address] 2020-09-21 2020-09-24 [facility] AbebaTaras rowley [facility] 1.2.840.1 14 [id number] Univers 16:20:00 15:47:00 Encounter Deric Santos 350.1.13.10 ity [facility] 4.2.7.2.686 [place] [phone] [facility] [address] 2020-09-21 2020-09-24 Outpatient X TOM [facility] [id number] Univers 16:20:00 15:47:00 DERIC combs [facility] 2020-09-22 2020-09-22 Outpatient R EVON [facility] [id number] Univers 14:00:00 14:00:00 CHETNA combs [facility] 2020-09-16 2020-09-16 Telephone Yuliana [facility] 1.2.840.114 [id number] Univers 00:00:00 00:00:00 Wondiful A Health 350.1.13.10 ity of [place] 4.2.7.2.686 Real as Professio [phone] [facility] [address] Office [facility] 2020-09-13 2020-09-13 Orders Doctor CARY 1.2.840.114 [id number] Univers 00:00:00 00:00:00 Only Unassigned, SEAN 350.1.13.10 ity of [place] [facility] 4.2.7.2.686 Real as [id number] [facility] [address] 2020-09-06 2020-09-06 Refsophie Bridges [facility] 1.2.840.114 [id number] Univers 00:00:00 00:00:00 Wondiful A Health 350.1.13.10 ity of [place] 4.2.7.2.686 Real as Professio [phone] [address] Office [facility] 2020-08-26 2020-08-28 [facility] Nyla Dixon [facility] 1 .2.840.114 [id number] Univers 09:07:00 11:38:00 Encounter Deric Santos 350.1.13.10 ity of [place] 4.2.7.2.686 [place] [phone] [facility] [address] 2020-08-26 2020-08-28 Inpatient X TOM [facility] [id number] Univers 09:07:00 11:38:00 DERIC combs [facility] 2020-08-26 2020-08-28 Inpatient X TOM [facility] [id number] Univers 09:07:00 11:38:00 DERIC combs [facility] 2020-08-24 2020-08-24 Transition Manjnider Pearce 1.2.840.114 [id number] Univers 00:00:00 00:00:00 of Care Debra Badillo 350.1.13.10 i ty of [place] 4.2.7.2.686 [place] [phone] [facility] [address] 2020-08-22 2020-08-23 [facility] Jairo Marin [facility] 1.2.840.1 14 [id number] Univers 09:28:00 16:15:00 Encounter Chidi [place] 350.1.13.10 ity of [place] 4.2.7.2.686 [facility] [phone] [address] 2020-08-22 2020-08-23 Outpatient X KIMO [facility] [id number] Univers 09:28:00 16:15:00 CHIDI itgautam [facility] 2020-07-12 2020-07-[address] [facility] [id number] Univers 13:00:00 13:00:00 WONDIFUL ity o f [facility] 2020-06-15 2020-06-15 [facility]ill [facility] 1.2.840.114 [id number] Univers 00:00:00 00:00:00 Wondiful [facility] [id number] ity of [place] [id number] Real as Professio [phone] [address] Office [facility] 2020-05-31 2020-05-31 Outpatient R EDMUND [facility] [id number] Univers 15:45:00 15:45:00 LUCY [facility] 2020-04-20 2020-04-20 Emergency [facility] [id number] Univers 16:13:00 21:39:00 Kary Sara Matt [id number] i ty of [place] [id number] [phone] [address] 2020-04-20 2020-04-20 [facility] [id number] Univers 00:00:00 00:00:00 Wondiful [facility] [id number] ity of [place] [id number] Real as Professio [phone] [facility] [address] [facility] 2020-04-14 2020-04-[address] [facility] [id number] Univers 10:00:00 10:00:00 KARISHMA [facility] 2020-04-04 2020-04-04 Outpatient R TEQUILA [facility] [id number] Univers 09:30:00 09:30:00 CINDY combs [facility] 2020-03-31 2020-03-[address] [facility] [id number] Univers 09:30:00 09:30:00 KARISHMA combs [facility] 2020-03-28 2020-03-28 Orders Doctor CARY [id number] Univers 00:00:00 00:00:00 Only Unassigned, SEAN [id number] ity of [place] [facility] [id number] Real as [phone] [address] 2020-03-23 2020-03-23 Outpatient R TENAWILSON [facility] [id number] Univers 14:45:00 14:45:00 KARISHMA combs [facility] 2020-03-21 2020-03-21 [facility] 1..840.114 [id number] Univers 00:00:00 00:00:00 Wondiful A [facility] 350.1.13.10 ity of [place] 4.2.7.2.686 Real as Professio [phone] Md dical nal [address] [facility] One 2020-03-17 2020-03-[address] [facility] [id number] Univers 09:15:00 09:15:00 KARISHMA combs [facility] 2020-03-15 2020-03-15 [facility] 1..840.114 [id number] Univers 00:00:00 00:00:00 Wondiful A Health 350.1.13.10 ity of [place] 4.2.7.2.686 Real as Professio [phone] Md dical nal [address] [facility] One 2020-03-09 2020-03-09 [facility] 1.2.840.114 [id number] Univers 00:00:00 00:00:00 Wondiful A Health 350.1.13.10 ity of [place] 4.2.7.2.686 Real as Professio [phone] Md dical nal 044 [facility] 2020-03-07 2020-03-07 Office Yuliana [facility] 1.2.840.114 [id number] Univers 10:31:23 11:33:24 Visit Pam [facility] 350.1.13.10 ity of [place] 4.2.7.2.686 Real as Professio [phone] Md dical nal 044 [facility] 2020-03-07 2020-03-07 [facility] 1.2.020.865 [id number] Univers 09:21:46 10:08:12 Visit Cindy Chapman 350.1.13.10 i [place] [phone] Md dical nal 188 [facility] 2020-03-07 2020-03-[address] [facility] [id number] Univers 09:15:00 09:15:00 CINDY combs [facility] 2020-02-23 2020-02-23 Outpatient [facility] [id number] Univers 09:00:00 09:00:00 ALEXIS combs [facility] 2020-02-18 2020-02-18 Transition Manjinder Morrison 1.2.840.114 [id number] Univers 00:00:00 00:00:00 of Care [place] 350.1.13.10 it [place] [phone] [address] 2020-02-17 2020-02-17 Outpatient R [facility] [id number] Univers 00:00:00 00:00:00 ALEXIS combs [facility] 2020-02-17 2020-02-17 Outpatient [facility] [id number] Univers 00:00:00 00:00:00 ALEXIS combs [facility] 2020-02-17 2020-02-17 Transition Manjinder Morrison 1.2.840.114 [id number] Univers 00:00:00 00:00:00 of Care [place] 350.1.13.10 [place] [phone] [address] 2020-02-09 2020-02-16 Hospital Kary Rush [facility] 1.2.840.1 14 [id number] Univers 16:05:00 17:18:00 Encounter Chidi Krishnan 350.1.13.10 it[place] [phone] [facility] [address] 2020-02-09 2020-02-09 Online Journalist Lab, Adc [facility] Pob I [facility] 1.2. 840.114 [id number] Univers 15:44:03 16:04:03 Visit Chetna Barnard 350.1.13.10 ity of [place] 4.2.7.2.686 [facility] [phone] Md dic[address] Office Building One 2020-02-09 2020-02-09 Office Yuliana [facility] 1.2.840.114 [id number] Univers 15:16:59 15:50:02 Visit [facility] 350.1.13.10 ity of [place] 4.2.7.2.686 Real as Professio [phone] [address] Office Building One 2020-02-09 2020-02-09 Outpatient R YULIANA [facility] [id number] Univers 15:30:00 15:30:00 WONDIFUL ity o f [facility] 2020-02-04 2020-02-04 Transition Manjinder Morrison 1.2.840.114 [id number] Univers 00:00:00 00:00:00 of Care [place] 350.1.13.10 [place] [phone] [address] 2020-02-03 2020-02-03 Transition Manjinder Morrison 1.2.840.114 [id number] Univers 00:00:00 00:00:00 of Care [place] 350.1.13.10 [place] [phone] [address] 2020-01-28 2020-02-02 [facility] Dangelo Carty 1.2.840.11 4 [id number] Univers 22:39:00 17:40:00 Encounter Eli Toney 350.1.13.10 ity of [facility] 4.2.7.2.6 86 Sandra Mcdonald [phone] Medical [address] 2020-02-02 2020-02-02 Case CARY Davenport 1.2.840.114 [id number] Univers 00:00:00 00:00:00 Management Alexis ESTRADA 350.1.13.10 ity of [facility] 4.2.7.2.686 Real as [phone] [facility] [address] 2020-02-01 2020-02-01 Anesthesia Kamille Varma [facility] 1.2.840 .114 [id number] Univers 11:11:00 11:46:00 Preston Murray ICAL 350.1.13.10 ity of [facility] 4.2.7.2.686 Real as BLDG [phone] [facility] [address] 2020-01-28 2020-01-[address] [facility] [id number] Univers 09:00:00 09:00:00 WONDIFUL ity o f [facility] 2020-01-28 2020-01-28 [facility] 1.2.840.114 [id number] Univers 00:00:00 00:00:00 Wondiful A Health 350.1.13.10 ity of [place] 4.2.7.2.686 Real as Darek [phone] [facility] [address] Building One 2020-01-26 2020-01-26 Office TAMMY DavenportANGIE 1.2.727.357 [id number] Univers 08:27:31 09:20:57 Visit Alexis Moss HEALTH 350.1.13.10 ity of [place]2.[place].2.[place] [phone] [facility] [address] 2020-01-26 2020-01-26 Outpatient R ETHEL [facility] [id number] Univers 09:00:00 09:00:00 RAWAN ity of [facility] 2020-01-21 2020-01-21 Transition NolanGilbertotono 1.2.840.114 [id number] Univers 00:00:00 00:00:00 of Care Anderson [place] 350.1.13.10 ity of [place]2.[place].2.[place] [phone] [facility] [address] 2020-01-15 2020-01-20 Hospital Eligio Hammer [facility] 1.2.840.114 [id number] Univers 23:47:00 17:26:00 Encounter Eli Toney 350.1.13.10 ity of [place] 4.2.7.2.[place] [phone] [facility] [address] 2020-01-15 2020-01-15 Orders Doctor CARY 1.2.840.114 [id number] Univers 00:00:00 00:00:00 Only Unassigned, SEAN 350.1.13.10 ity of [facility] 4.2.7.2.686 Real as [phone] [facility] [address] 2020-01-12 2020-01-12 Transition Manjinder Francisco 1.2.840.114 [id number] Univers 00:00:00 00:00:00 of Care Anderson Badillo 350.1.13.10 ity of [place]2.[place] [phone] [facility] [address] 2020-01-05 2020-01-11 Hospital Lizet Sherwood [facility] 1.2.840.11 [id number] Univers 15:45:00 14:20:00 Encounter Maurice Chaudhary 350.1.13.10 ity of [place] 4.2.7.2.[place] [phone] [facility] [address] 2020-01-05 2020-01-05 Urgent Provider, [facility] 1.2.840.114 [id number] Univers 15:08:18 15:28:18 Care Chetna Barnard Aleth 350.1.13.10 ity of [place] 4.2.7.2.686 Real as Professio [phone] [facility] [address] Office Building One 2020-01-05 2020-01-05 Outpatient R EVON [facility] [id number] [facility] 15:20:00 15:20:00 CHETNA combs of [facility] 2019-12-17 2019-12-17 [facility]phone [facility] 1.2.840.114 [id number] [facility] 00:00:00 00:00:00 Lucy [facility] 350.1.13.10 it y of [place] 4.2.7.2.686 Real as Professio [phone] [address] Office [facility] 2019-12-16 2019-12-16 Online Journalist Lab, Adc Fam Pob I [facility] 1.. 840.114 [id number] [facility] 09:31:42 09:41:42 Visit Lucy [facility] 350.1.13 .10 ity of [place] 4.2.7.2.686 Real as Professio [phone] [address] 2019-12-16 2019-12-16 [facility] 1..840.114 [id number] 070 [facility] 09:09:54 09:24:54 Visit Lucy [facility] 350.1.13.10 it y of [place] 4.2.7.2.686 Real as Professio [phone] [address] 2019-12-16 2019-12-16 Outpatient R EDMUND [facility] [id number] [facility] 09:15:00 09:15:00 LUCY combs [facility] 2019-07-13 2019-07-13 [facility] ..840.114 [id number] [facility] 00:00:00 00:00:00 Wondiful A Health 350.1.13.10 ity of [place] 4.2.7.2.686 Real as Professio [phone] [address] 2019-06-29 2019-06-29 [facility] 1..840.114 [id number] [facility] 00:00:00 00:00:00 Wondiful A Health 350.1.13.10 ity of [place] 4.2.7.2.686 Real as Professio [phone] [facility] [address] [facility] 2019-06-17 2019-06-17 Ancillary Rosa Diggs [facility] 1.2.840 .114 [id number] Univers 12:02:29 13:02:29 Visit Nidhi Jiang Health 350.1.13.10 ity of [place] 4.2.7.2.686 [place] - [phone] [facility] [address] 2019-06-17 2019-06-[address] [facility] [id number] Univers 13:00:00 13:00:00 NIDHI ity [facility] 2019-06-04 2019-06-05 Office [facility] 1.2.840.114 [id number] Univers 14:36:18 15:59:44 Visit Maurizio Health 350.1.13.10 it y of [place] 4.2.7.2.686 Ashvin johnson [place] - [phone] [facility] [address] 2019-06-04 2019-06-[address] [facility] [id number] Univers 15:00:00 15:00:00 MAURIZIO ity [facility] 2019-06-02 2019-06-02 Telephone [facility] 1.2.840.114 [id number] Univers 00:00:00 00:00:00 Wondiful A Health 350.1.13.10 ity of [place] 4.2.7.2.686 Real as Professio [phone] [address] Office [facility] 2019-05-22 2019-05-22 Telephone [facility] 1.2.840.114 [id number] Univers 00:00:00 00:00:00 Wondiful A Health 350.1.13.10 ity of [place] 4.2.7.2.686 Real as Professio [phone] [facility] nal [address] [place] [address] Office [facility] 2019-05-20 2019-05-20 [facility] 1.2.840.114 [id number] Univers 14:00:00 23:59:00 Encounter Maurizio [place] 350.1.13.10 ity of [place] 4.2.7.2.[address] [facility] [phone] [address] 2019-05-20 2019-05-20 Outpatient R DESAI, [facility] [id number] Univers 13:45:50 13:59:00 MAURIZIO itgautam [facility] 2019-05-20 2019-05-20 [facility] 1.2.840.114 [id number] Univers 13:45:00 13:59:00 Encounter Maurizio Chapman 350.1.13.10 ity of [place] 4.2.7.2.[address] [facility] [phone] [address] 2019-05-20 2019-05-20 Orders Doctor CARY 1.2.840.114 [id number] Univers 00:00:00 00:00:00 Only Unassigned, SEAN 350.1.13.10 ity of [place] [facility] 4.2.7.2.686 Real [phone] [address] 2019-05-18 2019-05-18 [facility] 1.2.840.114 [id number] Univers 14:09:00 23:59:00 Encounter Maurizio Chapman 350.1.13.10 ity of [place] 4.2.7.2.[address] [facility] [phone] [address] 2019-05-18 2019-05-18 [facility] 1.2.840.114 [id number] Univers 14:00:00 14:08:00 Encounter Maurizio Chapman 350.1.13.10 ity of [place] 4.2.7.2.[address] [facility] [phone] [address] 2019-05-18 2019-05-18 Outpatient R SAMI [facility] [id number] Univers 00:00:00 14:08:00 MAURIZIO adamsgautam [facility] 2019-05-12 2019-05-12 Outpatient R YUNIEL [facility] [id number] Univers 14:45:00 14:45:00 LEXIE combs [facility] 2019-05-12 2019-05-12 Online Journalist Cathleen, Tonia Lab Main [facility] 1.2.8 40.114 [id number] Univers 14:36:22 14:40:52 Visit Lexie Drake 350.1.13 .10 ity of [place] [phone] Md dical nal [address] Building 2019-05-12 2019-05-12 Orders Doctor CARY 1.2.840.114 [id number] Univers 00:00:00 00:00:00 Only Unassigned, SEAN 350.1.13.[address] [facility] 4.2.7.2.686 Real as [phone] [facility] [address] 2019-05-11 2019-05-11 Case CARY Herrera 1.2.840.114 [id number] Univers 00:00:00 00:00:00 Management Cain ESTRADA 350.1.13.10 ity of [facility] 4.2.7.2.686 Real as [phone] [facility] [address] 2019-05-11 2019-05-11 [facility] 1.2.840.114 [id number] Univers 00:00:00 00:00:00 Wondiful A Health 350.1.13.10 ity of [place] 4.2.7.2.686 Real as Professio [phone] Md dical nal [address] Office Building One 2019-05-08 2019-05-08 Telephone Sami [facility] 1.2.313.007 [id number] Univers 00:00:00 00:00:00 Maurizio Health 350.1.13.10 it y [place] - [phone] [facility] [address] 2019-05-07 2019-05-07 Office Sami [facility] 1.2.840.114 [id number] Univers 15:15:37 18:23:09 Visit Maurizio Health 350.1.13.10 it y of [place].2.[place].2.[place] - [phone] [facility] [address] 2019-05-07 2019-05-07 Outpatient R SAMI [facility] [id number] Univers 15:45:00 15:45:00 MAURIZIO ity of [facility] 2019-04-29 2019-04-29 Telephone Yuliana [facility] 1.2.840.114 [id number] Univers 00:00:00 00:00:00 Wondiful A Health 350.1.13.10 ity of [place] 4.2.7.2.686 Real as Professio [phone] [address] Office Building One 2019-04-29 2019-04-29 Orders Doctor CARY 1.2.840.114 [id number] Univers 00:00:00 00:00:00 Only Unassigned, SEAN 350.1.13.10 ity of [place] [facility] 4.2.7.2.686 Real as [phone] [address] 2019-04-28 2019-04-28 Outpatient R YULIANA [facility] [id number] Univers 16:00:00 16:46:38 WONDIFUL ity o f [facility] 2019-04-28 2019-04-28 [facility] 1.2.840.114 [id number] Univers 15:48:42 16:46:38 Visit Wondiful A Health 350.1.13.10 ity of [place] 4.2.7.2.686 Real as Professio [phone] [address] Office Building One 2019-04-13 2019-04-[address] [facility] [id number] Univers 14:30:00 14:56:12 WONDIFUL ity o f [facility] 2018-06-13 2018-06-13 Outpatient Noé Umanzort [id number] Common 13:53:00 13:53:00 [facility] it Road [facility] 2018-03-18 2018-03-18 [facility] [id number] Common 16:22:00 16:22:00 [facility] it Road [facility] 2018-03-03 2018-03-03 Outpatient [facility] [id number] Common 15:05:00 15:05:00 [facility] it Road [facility] 2018-01-02 2018-01-02 Outpatient Noé Umanzort [id number] Common 11:45:00 11:45:[address] [facility] 2017-12-16 2017-12-16 Outpatient Noé Aguirre [id number] Common 09:45:00 09:45:[address] [facility] 2017-10-16 2017-10-16 Outpatient Noé Umanzort 14 [id number] Common 14:17:00 14:17:[address] [facility] 2017-10-15 2017-10-15 Outpatient Noé Umanzort [id number] Common 11:31:00 11:31:[address] [facility] 2017-10-09 2017-10-09 Outpatient Noé Umanzort [id number] Common 15:30:00 15:30:00 t [facility] [address] Road [facility] Results Test Description Test Time Test Comments Results Result Comments Source COMP. METABOLIC PANEL (67597) 2022-11-28 21:55:35 Test Item Value Reference Range Interpretation Comme nts NA (test code = 3663778939) 138 mmol/L 135-145 K (test code = 7865673540) 3.8 mmol/L 3.5-5.0 CL (test code = 8414492782) 102 mmol/L 98-108 CO2 TOTAL (test code = 0305517430) 26 mmol/L 23-31 AGAP (test code = 5359986433) 10 2-16 BUN (test code = 4260940517) 12 mg/dL 7-23 GLUCOSE (test code = 5607389855) 111 mg/dL 70-110 H CREATININE (test code = 0.59 mg/dL 0.60-1.25 L 7239198732) TOTAL BILI (test code = 1.2 mg/dL 0.1-1.1 H 6211329709) CALCIUM (test code = 7944997306) 9.8 mg/dL 8.6-10.6 T PROTEIN (test code = 7283273076) 8.0 g/dL 6.3-8.2 ALBUMIN (test code = 4807868439) 4.5 g/dL 3.5-5.0 ALK PHOS (test code = 1355452746) 115 U/L 34-122 ALTv (test code = 1742-6) 23 U/L 5-50 AST(SGOT) (test code = 5191541814) 31 U/L 13-40 eGFR (test code = 2126961269) 144.3 mL/min/1.73m2 BERYL (test code = BERYL) [...] tests). Lab Interpretation (test code = Abnormal 88106-2) [facility]50 Test Item Value Reference Range Interpretation Comments LIPASE (test code = 8264435341) 1473 U/L 0-220 H Lab Interpretation (test code = Abnormal 24807-2) [facility] [id number] 21:44:10 Test Item Value Reference Range Interpretation [...] RDW-SD (test code = 50.9 fL 38.5-51.6 48716-6) RDW-CV (test code = 14.6 % 12.1-15.4 788-0) PLT (test code = 288 See_Comment [Automated 777-3) message] The system which generated this result transmit meng reference range : 150 - 328 10*3/ ?L. The reference range was not u sed to interpret th is result as normal/abnormal . MPV (test code = 10.0 fL 9.8-13.0 53703-0) NRBC/100 WBC (test 0.0 See_Comment [Automat ed code = 6848366291) message] The system which generated this result transmit meng reference range : 0.0 - 10.0 /100 WBCs. The reference range was not used to interpret this result as normal/abnormal . NRBC x10^3 (test code See_Comment [Auto mated = 8980472215) message] The system which generated this result transmit meng reference range : 10*3/?L. The reference range was not used to interpret this result as normal/abnormal . GRAN MAT (NEUT) % 82.5 % (test code = 770-8) IMM GRAN % (test code 0.60 % = 7883589648) LYMPH % (test code = 7.6 % 736-9) MONO % (test code = 8.5 % 5905-5) EOS % (test code = 0.5 % 713-8) BASO % (test code = 0.3 % 706-2) GRAN MAT x10^3(ANC) 10.80 10*3/uL 1.99-6.95 H (test code = 6821865284) IMM GRAN x10^3 (test 0.08 10*3/uL 0.00-0.06 H code = 8697529416) LYMPH x10^3 (test code 1.00 10*3/uL 1.09-3.23 L = 731-0) MONO x10^3 (test code 1.11 10*3/uL 0.36-1.02 H = 742-7) EOS x10^3 (test code = 0.07 10*3/uL 0.06-0.53 711-2) BASO x10^3 (test code 0.04 10*3/uL 0.01-0.09 = 704-7) Lab Interpretation Abnormal (test code = 18687-3) [facility] (61170)2022-11-22 19:59:50 Test Item Value Reference Range Interpretation Comments NA (test code = 140 mmol/L 135-145 8806179175) K (test code = 4.0 mmol/L 3.5-5.0 9077657137) CL (test code = 104 mmol/L 98-108 3375632508) CO2 TOTAL (test code = 27 mmol/L 23-31 9287853184) AGAP (test code = 9 2-16 9430328119) BUN (test code = 4 mg/dL 7-23 L 2481531089) GLUCOSE (test code = 94 mg/dL 70-110 5784098328) CREATININE (test code = 0.51 mg/dL 0.60-1.25 L 6922768731) TOTAL BILI (test code = 0.7 mg/dL 0.1-1.8 7753108172) CALCIUM (test code = 9.3 mg/dL 8.6-10.6 9930226278) T PROTEIN (test code = 7.5 g/dL 6.3-8.2 4461513447) ALBUMIN (test code = 4.3 g/dL 3.5-5.0 9100789990) ALK PHOS (test code = 113 U/L 34-122 5555891885) ALTv (test code = 21 U/L 5-50 1742-6) AST(SGOT) (test code = 30 U/L 13-40 9912439380) eGFR (test code = 170.7 mL/min/1.73m2 9635459404) BERYL (test code = BERYL) Association of [...] tests). Lab Interpretation Abnormal (test code = 90023-9) [facility] 19:59:29 Test Item Value Reference Range Interpretation Comments LIPASE (test code = 1418301821) 475 U/L 0-220 H Lab Interpretation (test code = Abnormal 37285-2) [facility] WITH [id number] 19:49:43 Test Item Value Reference Range Interpretation Comments WBC (test code = 8.68 See_Comment [Automated 6690-2) message] The sy stem which generated this result transmitted reference range : 4.20 - 10.70 10*3/?L. The reference range was not used to interpret this result as normal/abnormal . RBC (test code = 5.46 See_Comment [Automated 789-8) message] The sy stem [...] (test code = 52.1 fL 38.5-51.6 H 47400-4) RDW-CV (test code = 15.0 % 12.1-15.4 788-0) PLT (test code = 269 See_Comment [Automated 777-3) message] The sy stem which generated this result transmitted reference range : 150 - 328 10*3/ ?L. The reference r kevin was not used to interpret this result as normal/abnormal . MPV (test code = 9.6 fL 9.8-13.0 L 65770-0) NRBC/100 WBC (test 0.0 See_Comment [Automat ed code = 8507605522) message] The system which generated this result transmitted reference range : 0.0 - 10.0 /100 WBCs. The refer ence range was not u sed to interpret th is result as normal/abnormal . NRBC x10^3 (test code See_Comment [Auto mated = 2828099748) message] The s ystem which generated this result transmitted reference range : 10*3/?L. The reference range was not used to interpret this result as normal/abnormal . GRAN MAT (NEUT) % 75.7 % (test code = 770-8) IMM GRAN % (test code 0.50 % = 1940862559) LYMPH % (test code = 12.6 % 736-9) MONO % (test code = 9.8 % 5905-5) EOS % (test code = 0.8 % 713-8) BASO % (test code = 0.6 % 706-2) GRAN MAT x10^3(ANC) 6.58 10*3/uL 1.99-6.95 (test code = 7828235907) IMM GRAN x10^3 (test 0.04 10*3/uL 0.00-0.06 code = 2652273633) LYMPH x10^3 (test code 1.09 10*3/uL 1.09-3.23 = 731-0) MONO x10^3 (test code 0.85 10*3/uL 0.36-1.02 = 742-7) EOS x10^3 (test code = 0.07 10*3/uL 0.06-0.53 711-2) BASO x10^3 (test code 0.05 10*3/uL 0.01-0.09 = 704-7) Lab Interpretation Abnormal (test code = 82523-3) [facility] METABOLIC PANEL (NA, K, CL, CO2, GLUCOSE, BUN, CREATININE, CA)2022-11-14 11:22:12 Test Item Value Reference Range Interpretation Comments NA (test code = 141 mmol/L 135-145 9277350370) K (test code = 3.9 mmol/L 3.5-5.0 6297050304) CL (test code = 108 mmol/L 98-108 8750827874) CO2 TOTAL (test code = 28 mmol/L 23-31 1671668741) AGAP (test code = 5 2-16 2907760741) BUN (test code = 4 mg/dL 7-23 L 0228337997) GLUCOSE (test code = 75 mg/dL 70-110 9946186573) CREATININE (test code = 0.48 mg/dL 0.60-1.25 L 9220614755) CALCIUM (test code = 7.2 mg/dL 8.6-10.6 L 4123111477) eGFR (test code = 183.0 mL/min/1.73m2 7909147454) BERYL (test code = BERYL) Association of [...] tests). Lab Interpretation Abnormal (test code = 69233-6) [facility] (02740) (ALB,T.PRO,BILI T,BU/BC,ALT,AST,ALK PHOS)2022-11-13 02:14:41 Test Item Value Reference Range Interpretation Comments TOTAL BILI (test code = 4006123881) 0.5 mg/dL 0.1-1.1 BILI UNCON (test code = 9956591294) 0.3 mg/dL 0.1-1.1 BILI CONJ (test code = 4586558119) 0.0 mg/dL 0.0-0.3 T PROTEIN (test code = 6612470751) 6.9 g/dL 6.3-8.2 ALBUMIN (test code = 7813761847) 3.9 g/dL 3.5-5.0 ALK PHOS (test code = 0512590274) 98 U/L 34-122 ALTv (test code = 1742-6) 17 U/L 5-50 AST(SGOT) (test code = 4677589116) 16 U/L 13-40 Lab Interpretation (test code = Normal 62249-1) [facility] Test Item Value Reference Range Interpretation Comments LIPASE (test code = 6912080733) 824 U/L 0-220 H Lab Interpretation (test code = Abnormal 31346-4) [facility] (NA, K, CL, CO2, GLUCOSE, BUN, CREATININE, CA)2022-11-13 02:14:21 Test Item Value Reference Range Interpretation Comments NA (test code = 141 mmol/L 135-145 6225739540) K (test code = 3.4 mmol/L 3.5-5.0 L 8705209322) CL (test code = 104 mmol/L 98-108 1274339691) CO2 TOTAL (test code = 24 mmol/L 23-31 8707033993) AGAP (test code = 13 2-16 8486911842) BUN (test code = 5 mg/dL 7-23 L 9847591604) GLUCOSE (test code = 100 mg/dL 70-110 6954185539) CREATININE (test code = 0.54 mg/dL 0.60-1.25 L 9667863846) CALCIUM (test code = 8.7 mg/dL 8.6-10.6 5160215793) eGFR (test code = 159.8 mL/min/1.73m2 8036926535) BERYL (test code = BERYL) Association of [...] tests). Lab Interpretation Abnormal (test code = 76680-6) [facility] WITH [id number] 02:02:59 Test Item Value Reference Range Interpretation Comments WBC (test code = 7.83 See_Comment [Automated 9984-2) message] The sy stem which generated this result transmitted reference range : 4.20 - 10.70 10*3/?L. The reference range was not used to interpret this result as normal/abnormal . RBC (test code = 4.80 See_Comment [Automated 246-8) message] The sy stem which generated this [...] (test code = 52.8 fL 38.5-51.6 H 59424-5) RDW-CV (test code = 14.6 % 12.1-15.4 788-0) PLT (test code = 243 See_Comment [Automated 777-3) message] The sy stem which generated this result transmitted reference range : 150 - 328 10*3/ ?L. The reference r kevin was not used to interpret this result as normal/abnormal . MPV (test code = 10.1 fL 9.8-13.0 29525-7) NRBC/100 WBC (test 0.0 See_Comment [Automat ed code = 8684489553) message] The system which generated this result transmitted reference range : 0.0 - 10.0 /100 WBCs. The refer ence range was not u sed to interpret th is result as normal/abnormal . NRBC x10^3 (test code See_Comment [Auto mated = 9253497044) message] The s ystem which generated this result transmitted reference range : 10*3/?L. The reference range was not used to interpret this result as normal/abnormal . GRAN MAT (NEUT) % 72.2 % (test code = 770-8) IMM GRAN % (test code 0.90 % = 1154511722) LYMPH % (test code = 14.7 % 736-9) MONO % (test code = 10.0 % 5905-5) EOS % (test code = 1.4 % 713-8) BASO % (test code = 0.8 % 706-2) GRAN MAT x10^3(ANC) 5.66 10*3/uL 1.99-6.95 (test code = 8527293390) IMM GRAN x10^3 (test 0.07 10*3/uL 0.00-0.06 H code = 7193772055) LYMPH x10^3 (test code 1.15 10*3/uL 1.09-3.23 = 731-0) MONO x10^3 (test code 0.78 10*3/uL 0.36-1.02 = 742-7) EOS x10^3 (test code = 0.11 10*3/uL 0.06-0.53 711-2) BASO x10^3 (test code 0.06 10*3/uL 0.01-0.09 = 704-7) Lab Interpretation Abnormal (test code = 63509-6) [id number] 16:09:41 Test Item Value Reference Range Interpretation Comments TROPONIN I (test code = 0.013 ng/mL <=0.034 1587071963) BERYL (test code = BERYL) Reference (Normal) [...] biotin. Lab Interpretation Normal (test code = 11905-3) [facility] 22:48:51 ALCOHOL<10mg/dL11/04/2022 5:48 PM [facility]10 Lbpxsoey84-410 Toxic>100 Depression of GARDE MANGER>400 Fatalities ReportedNorth [facility] CenterCOM. METABOLIC PANEL (11511) 2022-11-04 18:25:59 Test Item Value Reference Range Interpretation Comments NA (test code = 135 mmol/L 135-145 1953102587) K (test code = 4.2 mmol/L 3.5-5.0 7461611791) CL (test code = 100 mmol/L 98-108 3242737159) CO2 TOTAL (test code = 26 mmol/L 23-31 6209447243) AGAP (test code = 9 2-16 8794335912) BUN (test code = 8 mg/dL 7-23 4369054650) GLUCOSE (test code = 126 mg/dL 70-110 H 0207463802) CREATININE (test code = 0.49 mg/dL 0.60-1.25 L 9122283303) TOTAL BILI (test code = 1.1 mg/dL 0.1-1.3 3507591332) CALCIUM (test code = 9.1 mg/dL 8.6-10.6 2656913838) T PROTEIN (test code = 7.6 g/dL 6.3-8.2 4161631367) ALBUMIN (test code = 4.1 g/dL 3.5-5.0 0654114362) ALK PHOS (test code = 113 U/L 34-122 3006753921) ALTv (test code = 21 U/L 5-50 1742-6) AST(SGOT) (test code = 41 U/L 13-40 H 3193096774) eGFR (test code = 178.7 mL/min/1.73m2 0386318044) BERYL (test code = BERYL) Association of [...] tests). Lab Interpretation Abnormal (test code = 23185-2) [facility]25:18 Test Item Value Reference Range Interpretation Comments LIPASE (test code = 0635485335) 754 U/L 0-220 H Lab Interpretation (test code = Abnormal 75465-4) [facility] WITH [id number] 18:11:59 Test Item Value Reference Range Interpretation [...] (test code = 52.0 fL 38.5-51.6 H 29871-6) RDW-CV (test code = 14.9 % 12.1-15.4 788-0) PLT (test code = 256 See_Comment [Automated 777-3) message] The sy stem which generated this result transmitted reference range : 150 - 328 10*3/ ?L. The reference r kevin was not used to interpret this result as normal/abnormal . MPV (test code = 9.4 fL 9.8-13.0 L 85972-2) NRBC/100 WBC (test 0.0 See_Comment [Automat ed code = 7399084813) message] The system which generated this result transmitted reference range : 0.0 - 10.0 /100 WBCs. The refer ence range was not u sed to interpret th is result as normal/abnormal . NRBC x10^3 (test code See_Comment [Auto mated = 5268786979) message] The s ystem which generated this result transmitted reference range : 10*3/?L. The reference range was not used to interpret this result as normal/abnormal . GRAN MAT (NEUT) % 83.0 % (test code = 770-8) IMM GRAN % (test code 0.70 % = 4042207348) LYMPH % (test code = 8.0 % 736-9) MONO % (test code = 7.6 % 5905-5) EOS % (test code = 0.3 % 713-8) BASO % (test code = 0.4 % 706-2) GRAN MAT x10^3(ANC) 9.01 10*3/uL 1.99-6.95 H (test code = 2955565020) IMM GRAN x10^3 (test 0.08 10*3/uL 0.00-0.06 H code = 0686547776) LYMPH x10^3 (test code 0.87 10*3/uL 1.09-3.23 L = 731-0) MONO x10^3 (test code 0.83 10*3/uL 0.36-1.02 = 742-7) EOS x10^3 (test code = 0.03 10*3/uL 0.06-0.53 L 711-2) BASO x10^3 (test code 0.04 10*3/uL 0.01-0.09 = 704-7) Lab Interpretation Abnormal (test code = 76640-6) [facility] WITH [id number] 22:44:37 Test Item Value Reference Range Interpretation Comments WBC (test code = 10.83 See_Comment H [Automated 7688-2) message] The sy stem which generated this result transmitted reference range : 4.20 - 10.70 10*3/?L. The reference range was not used to interpret this result as normal/abnormal . RBC (test code = 5.03 See_Comment [Automated 242-8) message] The sy stem which generated this [...] (test code = 53.2 fL 38.5-51.6 H 02401-4) RDW-CV (test code = 15.3 % 12.1-15.4 788-0) PLT (test code = 293 See_Comment [Automated 777-3) message] The sy stem which generated this result transmitted reference range : 150 - 328 10*3/ ?L. The reference r kevin was not used to interpret this result as normal/abnormal . MPV (test code = 9.4 fL 9.8-13.0 L 57243-0) NRBC/100 WBC (test 0.0 See_Comment [Automat ed code = 1650891908) message] The system which generated this result transmitted reference range : 0.0 - 10.0 /100 WBCs. The refer ence range was not u sed to interpret th is result as normal/abnormal . NRBC x10^3 (test code See_Comment [Auto mated = 5373502764) message] The s ystem which generated this result transmitted reference range : 10*3/?L. The reference range was not used to interpret this result as normal/abnormal . GRAN MAT (NEUT) % 70.5 % (test code = 770-8) IMM GRAN % (test code 1.40 % = 5331842615) LYMPH % (test code = 16.8 % 736-9) MONO % (test code = 9.1 % 5905-5) EOS % (test code = 1.6 % 713-8) BASO % (test code = 0.6 % 706-2) GRAN MAT x10^3(ANC) 7.63 10*3/uL 1.99-6.95 H (test code = 2793740352) IMM GRAN x10^3 (test 0.15 10*3/uL 0.00-0.06 H code = 3255837700) LYMPH x10^3 (test code 1.82 10*3/uL 1.09-3.23 = 731-0) MONO x10^3 (test code 0.99 10*3/uL 0.36-1.02 = 742-7) EOS x10^3 (test code = 0.17 10*3/uL 0.06-0.53 711-2) BASO x10^3 (test code 0.07 10*3/uL 0.01-0.09 = 704-7) Lab Interpretation Abnormal (test code = 12857-3) [facility] WITH [id number] 22:44:37 Test Item Value Reference Range Interpretation Comments WBC (test code = 10.83 See_Comment H [Automated 3990-2) message] The sy stem which generated this result transmitted reference range : 4.20 - 10.70 10*3/?L. The reference range was not used to interpret this result as normal/abnormal . RBC (test code = 5.03 See_Comment [Automated 629-8) message] The sy stem which generated this [...] (test code = 53.2 fL 38.5-51.6 H 05482-2) RDW-CV (test code = 15.3 % 12.1-15.4 788-0) PLT (test code = 293 See_Comment [Automated 087-3) message] The sy stem which generated this result transmitted reference range : 150 - 328 10*3/ ?L. The reference r kevin was not used to interpret this result as normal/abnormal . MPV (test code = 9.4 fL 9.8-13.0 L 97929-4) NRBC/100 WBC (test 0.0 See_Comment [Automat ed code = 6448626904) message] The system which generated this result transmitted reference range : 0.0 - 10.0 /100 WBCs. The refer ence range was not u sed to interpret th is result as normal/abnormal . NRBC x10^3 (test code See_Comment [Auto mated = 7830206704) message] The s ystem which generated this result transmitted reference range : 10*3/?L. The reference range was not used to interpret this result as normal/abnormal . GRAN MAT (NEUT) % 70.5 % (test code = 770-8) IMM GRAN % (test code 1.40 % = 0796884765) LYMPH % (test code = 16.8 % 736-9) MONO % (test code = 9.1 % 5905-5) EOS % (test code = 1.6 % 713-8) BASO % (test code = 0.6 % 706-2) GRAN MAT x10^3(ANC) 7.63 10*3/uL 1.99-6.95 H (test code = 9190729495) IMM GRAN x10^3 (test 0.15 10*3/uL 0.00-0.06 H code = 4844065586) LYMPH x10^3 (test code 1.82 10*3/uL 1.09-3.23 = 731-0) MONO x10^3 (test code 0.99 10*3/uL 0.36-1.02 = 742-7) EOS x10^3 (test code = 0.17 10*3/uL 0.06-0.53 711-2) BASO x10^3 (test code 0.07 10*3/uL 0.01-0.09 = 704-7) Lab Interpretation Abnormal (test code = 78337-2) [facility]2019-05-17 07:31:00 Test Item Value Reference Range Interpretation Comments CREATININE (BEAKER) 0.63 mg/dL 0.57-1.25 (test code = 358) EGFR (BEAKER) (test 136 mL/min/1.73 ESTIM ATED GFR IS code = 1092) sq m NOT ACCURATE CREATININE CLEARANCE IN PREDICTING GLOMERULAR FILTRATION RATE . ESTIMATED GFR I S NOT APPLICABLE FOR DIALYSIS PATIEN TS. WOUND CULTURE + GRAM [id number] 16:32:00 Test Item Value Reference Range Interpretation Comments CULTURE (BEAKER) (test No growth code = 1095) GRAM STAIN RESULT 2+ WBCs (BEAKER) (test code = 1123) GRAM STAIN RESULT 1+ gram positive cocci (BEAKER) (test code = in pairs 59282) GRAM STAIN RESULT <1+ gram variable rods (BEAKER) (test code = 62027) VANCOMYCIN LEVEL, [id number] 23:37:00 Test Item Value Reference Range Interpretation Comments VANCOMYCIN TROUGH (BEAKER) (test 7.5 ug/mL 10.0-20.0 L code = 522) FL, ESOPH, SWALLOW FUNCTION, WITH CINE OR [id number] 18:19:00Cervical esophagram with GASTROGAFFINReason for exam:->status post [...] 0.65 minutes. 46 images. Signed: Gaudencio Beltran [facility] Verified Date/Time: 08/12/2018 18:19:29 Reading Location: [facility] B1 C013X [facility] Consult Reading Room CBC W/PLT COUNT & AUTO [id number] 04:39:00 Test Item Value Reference Range Interpretation [...] (test code = 2801) TSH/FREE T4 IF [id number] 18:11:00 Test Item Value Reference Range Interpretation Comments THYROID STIMULATING HORMONE 0.75 uIU/mL 0.35-4.94 (BEAKER) (test code = 772) CBC W/PLT COUNT & AUTO [id number] 17:31:00 Test Item Value Reference Range Interpretation [...] PERCENT (BEAKER) (test code = 2801) TISSUE [id number] 10:26:00Surgical Pathology Report Case: [id number] Authorizing Provider: Jennifer Fraire MD Collected: 07/14/2018 1023 Ordering Location: [facility] PERIOPERATIVE Received: 07/14/2018 1029 SERVICES [...] NODES (0/2) Signing Pathologist Direct Phone Line: [phone] signed by Jackie Hardy MD on 07/25/2018 [...] cannot be determined from the submitted specimen(s) 68787 X3, 72917, 45570, 88215 X2,62284 X 4, 03310 x1, 02318 y335-hvqy-pak 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 Felt Finisher sections are submitted as follows: C6 - [...] shows ulcer and granulation tissue. On C19, [place]-8 positivity confirms portion of thyroid tissue present. [...] stains. Immunohistochemistry technical testing was performed at [facility], Pathology Laboratory where it was developed [...] clinical laboratory testing.CBC W/PLT COUNT & AUTO [id number] 09:34:00 Test Item Value Reference Range Interpretation [...] = 3438) Received comment: User comments: Slide comments:[id number] 05:40:00 Test Item Value Reference Range Interpretation Comments PHOSPHORUS (BEAKER) (test code = 4.8 mg/dL 2.3-4.7 H 604) [id number] 05:40:00 Test Item Value Reference Range Interpretation Comments MAGNESIUM (BEAKER) (test code = 2.1 mg/dL 1.6-2.6 627) BASIC METABOLIC [id number] 05:40:00 Test Item Value Reference Range Interpretation [...] PATIEN TS. CBC W/PLT COUNT & AUTO [id number] 11:50:00 Test Item Value Reference Range Interpretation [...] <1+ Normal respiratory (test code = 1095) amximo present GRAM STAIN RESULT <1+ White blood cells (BEAKER) (test code = seen 1123) GRAM STAIN RESULT 0-5 epithelial cells (BEAKER) (test code = 11378) GRAM STAIN RESULT No organisms seen (BEAKER) (test code = 73971) [id number] 06:07:00 Test Item Value Reference Range Interpretation Comments PHOSPHORUS (BEAKER) (test code = 4.6 mg/dL 2.3-4.7 604) [id number] 06:07:00 Test Item Value Reference Range Interpretation Comments MAGNESIUM (BEAKER) (test code = 2.0 mg/dL 1.6-2.6 627) BASIC METABOLIC [id number] 06:07:00 Test Item Value Reference Range Interpretation [...] APPLICABLE FOR DIALYSIS PATIEN TS. VANCOMYCIN LEVEL, [id number] 23:12:00 Test Item Value Reference Range Interpretation Comments VANCOMYCIN TROUGH (BEAKER) (test 3.2 ug/mL 10.0-20.0 L code = 522) POCT-GLUCOSE [id number] 17:57:00 Test Item Value Reference Range Interpretation Comments POC-GLUCOSE METER 105 mg/dL 70-110 TESTED AT [facility] (BEAKER) (test code = ALIYA MASON 1538) [address] CBC W/PLT COUNT & AUTO [id number] 13:00:00 Test Item Value Reference Range Interpretation [...] 3438) Received comment: User comments: Slide comments:POCT-GLUCOSE [id number] 12:50:00 Test Item Value Reference Range Interpretation Comments POC-GLUCOSE METER 117 mg/dL 70-110 H TESTED AT [facility] [address] (BEAKER) (test code = ALIYA MASON 1538) [address] [id number] 07:00:00 Test Item Value Reference Range Interpretation Comments PHOSPHORUS (BEAKER) (test code = 4.2 mg/dL 2.3-4.7 604) [id number] 07:00:00 Test Item Value Reference Range Interpretation Comments MAGNESIUM (BEAKER) (test code = 1.9 mg/dL 1.6-2.6 627) BASIC METABOLIC [id number] 07:00:00 Test Item Value Reference Range Interpretation [...] PATIEN TS. CBC W/PLT COUNT & AUTO [id number] 10:11:00 Test Item Value Reference Range Interpretation [...] = 3438) Received comment: User comments: Slide comments:[id number] 05:39:00 Test Item Value Reference Range Interpretation Comments PHOSPHORUS (BEAKER) (test code = 5.1 mg/dL 2.3-4.7 H 604) [id number] 05:39:00 Test Item Value Reference Range Interpretation Comments MAGNESIUM (BEAKER) (test code = 2.0 mg/dL 1.6-2.6 627) BASIC METABOLIC [id number] 05:39:00 Test Item Value Reference Range Interpretation [...] APPLICABLE FOR DIALYSIS PATIEN TS. VANCOMYCIN LEVEL, [id number] 23:38:00 Test Item Value Reference Range Interpretation Comments VANCOMYCIN TROUGH (BEAKER) (test 5.5 ug/mL 10.0-20.0 L code = 522) CBC W/PLT COUNT & AUTO [id number] 10:44:00 Test Item Value Reference Range Interpretation [...] = 3438) Received comment: User comments: Slide comments:[id number] 06:44:00 Test Item Value Reference Range Interpretation Comments MAGNESIUM (BEAKER) 2.1 mg/dL 1.6-2.6 Specimen slightly (test code = 627) hemolyzed [id number] 06:44:00 Test Item Value Reference Range Interpretation Comments PHOSPHORUS (BEAKER) 5.0 mg/dL 2.3-4.7 H Specimen slightly (test code = 604) hemolyzed BASIC METABOLIC [id number] 06:44:00 Test Item Value Reference Range Interpretation [...] S NOT APPLICABLE FOR DIALYSIS PATIEN TS. [id number] 06:06:00 Test Item Value Reference Range Interpretation [...] with mechanical heart valves.SPUTUM CULTURE + GRAM [id number] 14:44:00 Test Item Value Reference Range Interpretation Comments CULTURE (BEAKER) Oropharyngeal (test code = 1095) contamination, specimen rejected. Recollect requested. GRAM STAIN RESULT <1+ WBCs (BEAKER) (test code = 1123) GRAM STAIN RESULT >25 epithelial cells (BEAKER) (test code = 38348) GRAM STAIN RESULT <1+ gram positive rods (BEAKER) (test code = 57006) RAD, CHEST, 1 VIEW, NON [id number] 13:59:00Reason for exam:->leukocytosis in setting of recent laryngectomyShould [facility]?->YesFINAL REPORT INDICATION: leukocytosis in setting of recent laryngectomy COMPARISON:July 17 TECHNIQUE: Chest radiograph, single view, portable technique. FINDINGS / IMPRESSION: No pneumonia is demonstrated. Right base linear opacities represent subsegmental atelectasis. Tracheostomy tube and left low neck dissection noted. No pneumomediastinum or pneumothorax demonstrated. Cardiac and mediastinal contours unremarkable. Signed: Randolph Gaviria MDReport Verified Date/Time: 07/19/2018 13:59:21 Reading Location: [address] Consult Reading Room URINALYSIS W/ REFLEX URINE [id number] 11:14:00 Test Item Value Reference Range Interpretation [...] 514) SOURCE(BEAKER) (test code = 2795) POCT-GLUCOSE [id number] 06:46:00 Test Item Value Reference Range Interpretation Comments POC-GLUCOSE METER 102 mg/dL 70-110 TESTED AT [facility] [address] (BEAKER) (test code = ALIYA MARQUEZ [place] 1538) [address] [id number] 04:52:00 Test Item Value Reference Range Interpretation Comments PHOSPHORUS (BEAKER) (test code = 4.1 mg/dL 2.3-4.7 604) [id number] 04:52:00 Test Item Value Reference Range Interpretation Comments MAGNESIUM (BEAKER) (test code = 1.8 mg/dL 1.6-2.6 627) BASIC METABOLIC [id number] 04:52:00 Test Item Value Reference Range Interpretation [...] PATIEN TS. CBC W/PLT COUNT & AUTO [id number] 04:25:00 Test Item Value Reference Range Interpretation [...] H PERCENT (BEAKER) (test code = 2801) [id number] 04:11:00 Test Item Value Reference Range Interpretation [...] 2.5-3.5 for patients with mechanical heart valves.POCT-GLUCOSE [id number] 00:11:00 Test Item Value Reference Range Interpretation Comments POC-GLUCOSE METER 76 mg/dL 70-110 TESTED AT [place] [address] ([facility]) (test code = [facility] [address] 1538) POCT-GLUCOSE [id number] 17:53:00 Test Item Value Reference Range Interpretation Comments POC-GLUCOSE METER 94 mg/dL 70-110 TESTED AT [place] [address] ([facility]) (test code = [facility] [address] 1538) T4, [id number] 11:41:00 Test Item Value Reference Range Interpretation Comments FREE T4 ([facility]) (test code = 655) 0.90 ng/dL 0.70-1.48 POCT-GLUCOSE [id number] 11:35:00 Test Item Value Reference Range Interpretation Comments POC-GLUCOSE METER 103 mg/dL 70-110 TESTED AT [place] [address] ([facility]) (test code = [facility] 1538) [address] TSH/FREE T4 IF [id number] 10:50:00 Test Item Value Reference Range Interpretation Comments THYROID STIMULATING HORMONE 14.67 uIU/mL 0.35-4.94 H ([facility]) (test code = 772) POCT-GLUCOSE [id number] 06:42:00 Test Item Value Reference Range Interpretation Comments POC-GLUCOSE METER 111 mg/dL 70-110 H TESTED AT [place] [address] ([facility]) (test code = [facility] 1538) [address] CBC W/PLT COUNT & AUTO [id number] 05:20:00 Test Item Value Reference Range Interpretation Comments WHITE BLOOD CELL COUNT ([facility]) 11.4 K/ L 3.5-10.5 H (test code = 775) RED BLOOD CELL COUNT ([facility]) 3.40 M/ L 4.63-6.08 L (test code = 761) HEMOGLOBIN ([facility]) (test code = 10.3 GM/DL 13.7-17.5 L 410) HEMATOCRIT ([facility]) (test code = 33.6 % 40.1-51.0 L [...] 0-1 H PERCENT (BEAKER) (test code = 2807) [id number] 05:00:00 Test Item Value Reference Range Interpretation Comments PHOSPHORUS (BEAKER) (test code = 5.2 mg/dL 2.3-4.7 H 604) [id number] 05:00:00 Test Item Value Reference Range Interpretation Comments MAGNESIUM (BEAKER) (test code = 2.0 mg/dL 1.6-2.6 627) BASIC METABOLIC [id number] 05:00:00 Test Item Value Reference Range Interpretation [...] S NOT APPLICABLE FOR DIALYSIS PATIEN TS. [id number] 04:55:00 Test Item Value Reference Range Interpretation [...] mechanical heart valves.CBC W/PLT COUNT & AUTO [id number] 08:47:00 Test Item Value Reference Range Interpretation [...] 3438) Received comment: User comments: Slide comments:POCT-GLUCOSE [id number] 06:41:00 Test Item Value Reference Range Interpretation Comments POC-GLUCOSE METER 115 mg/dL 70-110 H TESTED AT [facility] [address] (BEAKER) (test code = ALIYA Ruiz [facility] 1538) [address] BASIC METABOLIC [id number] 04:53:00 Test Item Value Reference Range Interpretation [...] S NOT APPLICABLE FOR DIALYSIS PATIEN TS. [id number] 04:37:00 Test Item Value Reference Range Interpretation Comments PHOSPHORUS (BEAKER) (test code = 3.9 mg/dL 2.3-4.7 604) [id number] 04:37:00 Test Item Value Reference Range Interpretation Comments MAGNESIUM (BEAKER) (test code = 1.6 mg/dL 1.6-2.6 627) [id number] 04:37:00 Test Item Value Reference Range Interpretation Comments ALBUMIN (BEAKER) (test code = 1145) 3.2 g/dL 3.5-5.0 L [id number] 04:24:00 Test Item Value Reference Range Interpretation [...] mechanical heart valves.RAD, CHEST, 1 VIEW, NON [id number] 03:56:00Reason for exam:->atelectasisShould this be performed at [...] MDReport Verified Date/Time: 07/17/2018 03:56:49 Reading Location: [address] Reading Room POCT-GLUCOSE [id number] 00:56:00 Test Item Value Reference Range Interpretation Comments POC-GLUCOSE METER 115 mg/dL 70-110 H TESTED AT [facility] (test code = ALIYA Ruiz [place] 1538) [address] POCT-GLUCOSE [id number] 18:10:00 Test Item Value Reference Range Interpretation Comments POC-GLUCOSE METER 116 mg/dL 70-110 H TESTED AT [facility]) (test code = ALIYA Ruiz [place] 1538) [address] POCT-GLUCOSE [id number] 13:10:00 Test Item Value Reference Range Interpretation Comments POC-GLUCOSE METER 115 mg/dL 70-110 H TESTED AT [facility] ([facility]) (test code = ALIYA Ruiz [facility] 1538) [address] RAD, CHEST, 1 VIEW, NON [id number] 08:20:00Reason for exam:- >atelectasisShould this be performed [...] IMPRESSION: No significant change. Signed: Gaudencio Beltran Verified Date/Time: 07/16/2018 08:20:57 Reading Location: [address] Reading Room TROPONIN [id number] 08:03:00 Test Item Value Reference Range Interpretation Comments TROPONIN I ([facility] (test code = 0.01 ng/mL 0.00-0.03 397) [...] acute neurological disease, and persistent tachyarrhythmia.BLOOD GAS, [id number] 07:42:00 Test Item Value Reference Range Interpretation [...] (test code = 1819) 44.0 % POCT-GLUCOSE [id number] 06:03:00 Test Item Value Reference Range Interpretation Comments POC-GLUCOSE METER 120 mg/dL 70-110 H TESTED AT [facility] [address] (BEAKER) (test code = ALIYA MARQUEZ [place] 1538) [address] CBC W/PLT COUNT & AUTO [id number] 04:00:00 Test Item Value Reference Range Interpretation [...] 0-1 PERCENT (BEAKER) (test code = 2801) [id number] 03:38:00 Test Item Value Reference Range Interpretation Comments MAGNESIUM (BEAKER) 2.0 mg/dL 1.6-2.6 Specimen slightly (test code = 627) hemolyzed [id number] 03:38:00 Test Item Value Reference Range Interpretation Comments PHOSPHORUS (BEAKER) 3.6 mg/dL 2.3-4.7 Specimen slightly (test code = 604) hemolyzed BASIC METABOLIC [id number] 03:38:00 Test Item Value Reference Range Interpretation [...] S NOT APPLICABLE FOR DIALYSIS PATIEN TS. [id number] 03:38:00 Test Item Value Reference Range Interpretation Comments ALBUMIN (BEAKER) (test 3.9 g/dL 3.5-5.0 Speci men slightly code = 1145) hemolyzed [id number] 03:31:00 Test Item Value Reference Range Interpretation [...] 2.5-3.5 for patients with mechanical heart valves.POCT-GLUCOSE [id number] 23:39:00 Test Item Value Reference Range Interpretation Comments POC-GLUCOSE METER 121 mg/dL 70-110 H TESTED AT [facility] ([facility]) (test code = [facility] 1538) [address] POCT-GLUCOSE [id number] 18:25:00 Test Item Value Reference Range Interpretation Comments POC-GLUCOSE METER 112 mg/dL 70-110 H TESTED AT [facility] ([facility] [facility]) (test code = [facility] 1538) [address] T4, [id number] 12:56:00 Test Item Value Reference Range Interpretation Comments FREE T4 ([facility] (test code = 655) 1.17 ng/dL 0.70-1.48 POCT-GLUCOSE [id number] 11:35:00 Test Item Value Reference Range Interpretation Comments POC-GLUCOSE METER 143 mg/dL 70-110 H TESTED AT [facility] 6720 (BEAKER) (test code = ALIYA MASON 1538) [address] CBC W/PLT COUNT & AUTO [id number] 07:50:00 Test Item Value Reference Range Interpretation [...] MDReport Verified Date/Time: 07/15/2018 05:48:22 Reading Location: [facility] C013V Neuro Reading Room POCT-GLUCOSE METER 2018-07-15 05:47:00 Test Item Value Reference Range Interpretation Comments POC-GLUCOSE METER 177 mg/dL 70-110 H TESTED AT [facility] 6720 (BEAKER) (test code = ALIYA Ruiz [facility] 1538) [address] [id number] 04:29:00 Test Item Value Reference Range Interpretation Comments PHOSPHORUS (BEAKER) (test code = 2.3 mg/dL 2.3-4.7 604) [id number] 04:29:00 Test Item Value Reference Range Interpretation Comments MAGNESIUM (BEAKER) (test code = 1.7 mg/dL 1.6-2.6 627) BASIC METABOLIC [id number] 04:29:00 Test Item Value Reference Range Interpretation [...] S NOT APPLICABLE FOR DIALYSIS PATIEN TS. [id number] 04:29:00 Test Item Value Reference Range Interpretation Comments ALBUMIN (BEAKER) (test code = 1145) 3.8 g/dL 3.5-5.0 [id number] 04:22:00 Test Item Value Reference Range Interpretation [...] 2.5-3.5 for patients with mechanical heart valves.POCT-GLUCOSE [id number] 23:55:00 Test Item Value Reference Range Interpretation Comments POC-GLUCOSE METER 159 mg/dL 70-110 H TESTED AT [facility] 6720 (ARCHIE) (test code = ALIYA Ruiz [place] 1538) [address] [id number] 19:41:00 Test Item Value Reference Range Interpretation Comments THYROID STIMULATING HORMONE 6.82 uIU/mL 0.35-4.94 H (ARCHIE) (test code = 772) [id number] 19:26:00 Test Item Value Reference Range Interpretation Comments PHOSPHORUS (BEAKER) (test code = 4.9 mg/dL 2.3-4.7 H 604) Postop labsPostop labsPostop labsPostop [id number] 19:26:00 Test Item Value Reference Range Interpretation Comments MAGNESIUM (BEAKER) (test code = 1.9 mg/dL 1.6-2.6 627) Postop labsPostop labsPostop labsPostop labsBASIC METABOLIC [id number] 19:26:00 Test Item Value Reference Range Interpretation [...] DIALYSIS PATIEN TS. Postop labsPostop labsPostop labsPostop [id number] 19:26:00 Test Item Value Reference Range Interpretation Comments ALBUMIN (BEAKER) (test code = 1145) 3.9 g/dL 3.5-5.0 Postop labsPostop labsPostop labsPostop [id number] 19:24:00 Test Item Value Reference Range Interpretation Comments PREALBUMIN (BEAKER) 17 mg/dL 14-45 Specimen slightly (test code = 586) hemolyzed PTH, [id number] 19:23:00 Test Item Value Reference Range Interpretation Comments PARATHYROID HORMONE INTACT 16.1 pg/mL 8.5-72.5 (BEAKER) (test code = 577) Postop LabsCBC W/PLT COUNT & AUTO [id number] 18:58:00 Test Item Value Reference Range Interpretation [...] (BEAKER) (test code = 2801) BLOOD GAS, [id number] 15:31:00 Test Item Value Reference Range Interpretation [...] 1819) 100.0 % HGB/HCT (H&H) - STAT [id number] 15:31:00 Test Item Value Reference Range Interpretation Comments HEMOGLOBIN (BEAKER) (test code = 11.0 g/dL 13.0-16.8 L 410) HEMATOCRIT (BEAKER) (test code = 32.0 % 40.0-50.0 L 411) GLUCOSE-STAT [id number] 15:30:00 Test Item Value Reference Range Interpretation Comments GLUCOSE RANDOM (BEAKER) (test code = 87 mg/dL 70-110 652) SODIUM NA-STAT [id number] 15:30:00 Test Item Value Reference Range Interpretation Comments SODIUM (BEAKER) (test code = 381) 137 meq/L 135-148 POTASSIUM-STAT [id number] 15:30:00 Test Item Value Reference Range Interpretation Comments POTASSIUM (BEAKER) (test code = 4.0 meq/L 3.6-5.5 379) ANG, INSERTION G TUBE, W/ [id number] 14:18:00Reason for exam:- >Gastrostomy tubeFINAL REPORT Fluoroscopic guided gastrostomy tube placement, 07/11/2018. Clinical History: Laryngeal cancer. Modality: Fluoroscopy. Powder Truck Driver: Jack Lima MD. Collar Padder Blindstitch:Dilip Vivas MD. Conscious sedation: 2.0 mg Versed, [...] After the tract was dilated, a 14 Wolof catheterwas placed into the stomach. The wire [...] MDReport Verified Date/Time: 07/11/2018 14:18:50 Reading Location: [place] [address] Angio Body Reading Room TSH/FREE T4 IF [id number] 13:24:00 Test Item Value Reference Range Interpretation Comments THYROID STIMULATING HORMONE 2.37 uIU/mL 0.35-4.94 (BEAKER) (test code = 772) RAD, CHEST, PA OR AP, 1 [id number] 11:03:00Reason for exam:->coughShould this be performed at the bedside?->NoFINAL REPORT AP chest HISTORY: Cough. COMPARISON: 06/17/2018. IMPRESSION: Tracheostomy tube present. Heart size normal. Lungs clear without effusion or pneumothorax. Intact skeleton. Signed: Ashok Whitaker MDReport Verified Date/Time: 07/10/2018 11:03:24 Reading Location: [address] Radiology Reading Room COMPREHENSIVE METABOLIC [id number] 10:52:00 Test Item Value Reference Range Interpretation [...] PATIEN TS. CBC W/PLT COUNT & AUTO [id number] 10:32:00 Test Item Value Reference Range Interpretation [...] H PERCENT (BEAKER) (test code = 2801) [id number] 10:30:00 Test Item Value Reference Range Interpretation [...] 2.5-3.5 for patients with mechanical heart valves.BLOOD [id number] 20:01:00 Test Item Value Reference Range Interpretation Comments CULTURE (BEAKER) (test No growth in 5 days code = 1095) BLOOD [id number] 20:01:00 Test Item Value Reference Range Interpretation Comments CULTURE (BEAKER) (test No growth in 5 days code = 1095) CBC W/PLT COUNT & AUTO [id number] 12:54:00 Test Item Value Reference Range Interpretation [...] Received comment: User comments: Slide comments:BASIC METABOLIC [id number] 06:44:00 Test Item Value Reference Range Interpretation [...] NOT APPLICABLE FOR DIALYSIS PATIEN TS. BLOOD [id number] 12:01:00 Test Item Value Reference Range Interpretation Comments CULTURE (BEAKER) (test No growth in 5 days code = 1095) CBC W/PLT COUNT & AUTO [id number] 11:06:00 Test Item Value Reference Range Interpretation [...] Received comment: User comments: Slide comments:BASIC METABOLIC [id number] 08:11:00 Test Item Value Reference Range Interpretation [...] NOT APPLICABLE FOR DIALYSIS PATIEN TS. BLOOD [id number] 08:01:00 Test Item Value Reference Range Interpretation Comments CULTURE (BEAKER) (test No growth in 5 days code = 1095) BLOOD [id number] 02:00:00 Test Item Value Reference Range Interpretation Comments CULTURE (BEAKER) (test No growth in 5 days code = 1095) BLOOD [id number] 02:00:00 Test Item Value Reference Range Interpretation Comments CULTURE (BEAKER) (test No growth in 5 days code = 1095) CBC W/PLT COUNT & AUTO [id number] 15:32:00 Test Item Value Reference Range Interpretation [...] Received comment: User comments: Slide comments:BASIC METABOLIC [id number] 07:38:00 Test Item Value Reference Range Interpretation [...] PATIEN TS. CBC W/PLT COUNT & AUTO [id number] 12:37:00 Test Item Value Reference Range Interpretation [...] Received comment: User comments: Slide comments:BASIC METABOLIC [id number] 12:04:00 Test Item Value Reference Range Interpretation [...] APPLICABLE FOR DIALYSIS PATIEN TS. VANCOMYCIN LEVEL, [id number] 12:02:00 Test Item Value Reference Range Interpretation Comments VANCOMYCIN RANDOM (BEAKER) (test 1.3 ug/mL code = 523) Reference Range: No [id number] 12:00:00 Test Item Value Reference Range Interpretation Comments MAGNESIUM (BEAKER) (test code = 2.2 mg/dL 1.6-2.6 627) SPUTUM CULTURE + GRAM [id number] 11:45:00 Test Item Value Reference Range Interpretation [...] 15-20 epithelial (BEAKER) (test code cells = 979620) GRAM STAIN RESULT <1+ gram negative (BEAKER) (test code coccobacilli = 071195) GRAM STAIN RESULT <1+ gram positive (BEAKER) (test code cocci in pairs = 076449) GRAM STAIN RESULT <1+ yeast with (BEAKER) (test code pseudohyphae = 459355) GRAM STAIN RESULT 1+ gram variable (BEAKER) (test code rods = 812205) 1+ Normal respiratory [facility] & AUTO DIFFERENTIAL 2018-06-17 18:36:00 [...] H PERCENT (BEAKER) (test code = 2801) [id number] 14:37:00 Test Item Value Reference Range Interpretation Comments PROCALCITONIN (BEAKER) (test code 0.08 ng/mL <0.05 H = 3036) SEPSIS RISK (ng/mL)Low: 0.05-0.50Intermediate: 0.51-2.00High: >=2.01LACTIC ACID, [id number] 13:43:00 Test Item Value Reference Range Interpretation Comments LACTATE BLOOD VENOUS 2.4 mmol/L 0.5-2.2 H Specime n slightly (2) (BEAKER) (test hemolyzed code = 2872) TISSUE [id number] 13:24:00Surgical Pathology Report Case: [id number] Authorizing Provider: Jennifer Fraire MD Collected: 06/09/2018 3762 Ordering Location: [address] Received: 06/10/2018 0807 Cardiovascular Pathologist: Jennifer Hull MD Specimen: Soft Tissue, Other, LEFT SUPRAGLOTTIC MASS LEFT SUPRAGLOTTIC MASS, LARYNGOSCOPIC BIOPSY: - ATYPICAL SQUAMOUS PROLIFERATION (SEE COMMENT) Signing Pathologist Direct Phone Line: [phone] signed by Jennifer Hull MD on 06/17/2018 [...] is seen. The biopsy may not be jewelry sales representative of the entirelesion; Clinical correlation is recommended.39751; 93835; 44280Ktwvtylii mass Left subglottic massThe specimen is received in a fluidless container labeled with patient information and labeled "left supraglottic mass" consisting of four fragments of red softtissue ranging from 0.1 to 0.4 cm, submitted entirely A1. CG/pl PERFORMEDThe interpretation of this case included the use of immunohistochemistry or special stains. p53 and AE1/VQ4Vyymovqmqmxqtxtprdgt t echnical testing was performed at [facility], Pathology Laboratory where it was developed [...] testing.FL, ESOPH, SWALLOW FUNCTION, WITH CINE OR [id number] 12:08:00Reason for exam:->silent aspiration evaluationFINAL REPORT Modified [...] 0.4 minutes. One image. Signed: Gaudencio Beltran Verified Date/Time: 06/17/2018 12:08:38 Reading Location: [address] OrthoConsult Reading Room [id number] 09:44:00 Test Item Value Reference Range Interpretation Comments MAGNESIUM (BEAKER) (test code = 1.9 mg/dL 1.6-2.6 627) [id number] 09:44:00 Test Item Value Reference Range Interpretation Comments PHOSPHORUS (BEAKER) (test code = 2.9 mg/dL 2.3-4.7 604) RAD, CHEST, 1 VIEW, NON [id number] 08:16:00Reason for exam:->SOBShould this be performed at the bedside?->YesFINAL REPORT Chest one view. Clinical history: SOB Comparison: June 16, 2018 Discussion: A frontal chest is provided. Cardiomediastinal contours are unchanged. Tracheostomy tube is in stable position. Unchanged patchy bibasilar airspace opacities. There is mild degree of interstitial prominence that may reflect edema. No pneumothorax or large effusion. Signed: Judy Avelar Verified Date/Time: 06/17/2018 08:16:46 Reading Location: [facility] Radiology Reading Room BASIC METABOLIC [id number] 06:25:00 Test Item Value Reference Range Interpretation [...] APPLICABLE FOR DIALYSIS PATIEN TS. VANCOMYCIN LEVEL, [id number] 06:25:00 Test Item Value Reference Range Interpretation Comments VANCOMYCIN RANDOM (BEAKER) (test 9.6 ug/mL code = 523) Reference Range: No NormalsDraw 30 min prior to scheduled dose, HOLD if level > 20 mcg/mL, informMD.RESPIRATORY PANEL [id number] 12:23:00 Test Item Value Reference Range Interpretation Comments HUMAN METAPNEUMOVIRUS Not detected Not detected, (BEAKER) (test code = Equivocal 8603) RHINOVIRUS (BEAKER) Not detected Not detected, (test [...] decisions. This sample was tested at the [facility] using the [employer] FilmArray Respiratory Panel. It is FDA cleared and has been verified and approved by the [facility] for clinical use on nasal swab specimens. It is not FDA-cleared for use on bronchial wash/lavage samples. However, for this sample type, validation was performed and test characteristics were determined and approved, by [facility] laboratory for clinical use under the Clinical Laboratory Improvement Amendments (CLIA) of 1988 requirements. Therefore, FDA clearance isnot required. This laboratory is CLIA- certified and [employer] (CAP)-accredited to perform high complexity testing.CBC W/PLT COUNT & AUTO [id number] 11:27:00 Test Item Value Reference Range Interpretation [...] comments:CT, CHEST WITH IV CONTRAST- PE TEST [id number] 09:53:00Worsening hypoxia s/o diagnosis and excision of [...] Colunga Verified Date/Time: 06/16/2018 09:53:01 Reading Location: [facility] Diagnostic Imaging Reading Room - [place] [address] RAD, CHEST, 1 VIEW, NON [id number] 07:36:00Reason for exam:->recent pneumothorax, new trachShould this [...] Morales Verified Date/Time: 06/16/2018 07:36:27 Reading Location: [facility] Radiology Reading Room BASIC METABOLIC [id number] 05:45:00 Test Item Value Reference Range Interpretation [...] S NOT APPLICABLE FOR DIALYSIS PATIEN TS. [id number] 18:12:00 Test Item Value Reference Range Interpretation Comments MAGNESIUM (BEAKER) 2.0 mg/dL 1.6-2.6 Specimen slightly (test code = 627) hemolyzed BASIC METABOLIC [id number] 18:12:00 Test Item Value Reference Range Interpretation [...] PATIEN TS. RAD, CHEST, 1 VIEW, NON [id number] 13:18:00Reason for exam:->recent pneumothorax, new trachShould this [...] MDReport Verified Date/Time: 06/15/2018 13:18:45 Reading Location: [address] Neuro Reading Room BLOOD GAS, [id number] 11:41:00 Test Item Value Reference Range Interpretation [...] hour post initaition of vent support \\R\\1015TROPONIN [id number] 09:49:00 Test Item Value Reference Range Interpretation [...] 66 pg/mL 0-100 (test code = 700) [id number] 09:29:00 Test Item Value Reference Range Interpretation [...] exclusion of thrombosis is within 95-100% range. [id number] 09:12:00 Test Item Value Reference Range Interpretation Comments FIBRINOGEN LEVEL (BEAKER) (test 621 mg/dl 225-434 H code = 658) [id number] 09:10:00 Test Item Value Reference Range Interpretation Comments PHOSPHORUS (BEAKER) (test code = 2.8 mg/dL 2.3-4.7 604) [id number] 09:10:00 Test Item Value Reference Range Interpretation Comments MAGNESIUM (BEAKER) (test code = 1.9 mg/dL 1.6-2.6 627) COMPREHENSIVE METABOLIC [id number] 09:10:00 Test Item Value Reference Range Interpretation [...] S NOT APPLICABLE FOR DIALYSIS PATIEN TS. [id number] 09:01:00 Test Item Value Reference Range Interpretation [...] for patients with mechanical heart valves.LACTIC ACID, [id number] 08:51:00 Test Item Value Reference Range Interpretation Comments LACTATE BLOOD 0.8 mmol/L 0.5-2.2 Specimen sligh tly ARTERIAL (2) (BEAKER) hemoly zed (test code = 2874) BLOOD GAS, [id number] 08:40:00 Test Item Value Reference Range Interpretation [...] (BEAKER) (test code = 1819) 80.0 % [id number] 08:00:00 Test Item Value Reference Range Interpretation Comments MAGNESIUM (BEAKER) (test code = 1.8 mg/dL 1.6-2.6 627) Add onCBC W/PLT COUNT & AUTO [id number] 06:45:00 Test Item Value Reference Range Interpretation [...] (BEAKER) (test code = 2801) BASIC METABOLIC [id number] 06:35:00 Test Item Value Reference Range Interpretation [...] PATIEN TS. RAD, CHEST, 1 VIEW, NON [id number] 05:10:00Reason for exam:->sob, tachypneaShould this be performed [...] Stable contours. Additional findings: None. Signed: Sridevi Carrilloort Verified Date/Time: 06/15/2018 05:10:33 Reading Location: [facility] C0[facility] [[email or web address] Transitional Reading Room POCT-LACTIC ACID, VENOUS 2018-06-15 04:30:00 Test Item Value Reference Range Interpretation Comments POC-LACTIC ACID, 1.1 mmol/L 0.9-1.7 TESTED AT [facility] 6720 VENOUS (BEAKER) (test ALIYA Ruiz [place] code = 2805) [address] URINALYSIS W/ REFLEX URINE [id number] 20:03:00 Test Item Value Reference Range Interpretation [...] code = 514) SOURCE(BEAKER) (test code = 1374) RAD, CHEST, 1 VIEW, NON [id number] 19:10:00Reason for exam:->SUSUPECTED INFECTIONShould this be performed [...] MDReport Verified Date/Time: 06/14/2018 19:10:10 Reading Location: [address] Reading Room CBC W/PLT COUNT & AUTO [id number] 04:36:00 Test Item Value Reference Range Interpretation [...] = 2801) RAD, CHEST, 1 VIEW, NON [id number] 04:13:00Reason for exam:->recent pneumothorax, new trachShould this [...] Stable contours. Additional findings: None. Signed: Sridevi Carrilloepfarzaneh Verified Date/Time: 06/14/2018 04:13:50 Reading Location: [address] Transitional Reading Room D GAS, [id number] 01:01:00 Test Item Value Reference Range Interpretation [...] (test code = 1819) 40.0 % POCT-GLUCOSE [id number] 05:32:00 Test Item Value Reference Range Interpretation Comments POC-GLUCOSE METER 92 mg/dL 70-110 TESTED AT [facility] 6720 (BEAKER) (test code = [place] [address] 1538) RAD, CHEST, 1 VIEW, NON [id number] 05:03:00Reason for exam:->evaluate for pneumo r/t CTShould [...] Stable contours. Additional findings: None. Signed: [facility] Verified Date/Time: 06/13/2018 05:03:31 Reading Location: [address] Transitional Reading Room [id number] 04:22:00 Test Item Value Reference Range Interpretation Comments PARTIAL THROMBOPLASTIN TIME 27.4 seconds 22.5-36.0 (BEAKER) (test code = 760) PROTHROMBIN [id number] 04:21:00 Test Item Value Reference Range Interpretation Comments PROTIME (BEAKER) (test code = 13.8 seconds 11.7-14.7 759) INR (BEAKER) (test code = 370) 1.1 <=5.9 RECOMMENDED COUMADIN/WARFARIN INR THERAPY RANGESSTANDARD DOSE: 2.0 - 3.0 Includes: PROPHYLAXIS for venous thrombosis, systemic embolization; TREATMENT for venous thrombosis and/or pulmonary embolus.HIGH RISK: Target INR is 2.5-3.5 for patients with mechanical heart valves.[id number] 04:20:00 Test Item Value Reference Range Interpretation Comments PHOSPHORUS (BEAKER) (test code = 3.1 mg/dL 2.3-4.7 604) [id number] 04:20:00 Test Item Value Reference Range Interpretation Comments MAGNESIUM (BEAKER) (test code = 2.0 mg/dL 1.6-2.6 627) BASIC METABOLIC [id number] 04:20:00 Test Item Value Reference Range Interpretation [...] PATIEN TS. CBC W/PLT COUNT & AUTO [id number] 04:14:00 Test Item Value Reference Range Interpretation [...] PERCENT (BEAKER) (test code = 2801) POCT-GLUCOSE [id number] 00:14:00 Test Item Value Reference Range Interpretation Comments POC-GLUCOSE METER 126 mg/dL 70-110 H TESTED AT [facility] 6720 (BEAKER) (test code = ALIYA Ruiz [facility] 1538) [address] RAD, CHEST, 1 VIEW, NON [id number] 12:29:00Reason for exam:->s/p[ L thoracocentesisFINAL REPORT CLINICAL HISTORY: s/p[ L thoracocentesis TECHNIQUE: 1 view of the chest. COMPARISON: 06/12/2018 IMPRESSION: A tracheostomy tube is again seen. There is no pneumothorax. Bibasilar atelectasis is again noted. There is no significant appearing pleural fluid. The cardiomediastinal silhouette is magnified by technique. Signed: Jim Steele MDReport Verified Date/Time: 06/12/2018 12:29:27 Reading Location: [address] Consult Reading Room POCT-GLUCOSE [id number] 12:10:00 Test Item Value Reference Range Interpretation Comments POC-GLUCOSE METER 194 mg/dL 70-110 H TESTED AT [facility] 6720 (ARCHIE) (test code = ALIYA Ruiz [facility] 1538) [address] CT, CHEST, WITH [id number] 10:26:00Premedicated for contrast allergy. With general anesthesia [...] malignancy in the thorax. Signed: Randolph Gaviria Verified Date/Time: 06/12/2018 10:26:26 Reading Location: [facility] Diagnostic Imaging Reading Room - [place] [address] , SOFT TISSUE NECK, [id number] 09:53:00Premedicated for contrast allergy. With gneral anesthesia [...] imaging is available. Signed: JR Paul Robert MDRosmani Verified Date/Time: 06/12/2018 09:53:06 Reading Location: [facility] C013V Neuro Reading Room [id number] 06:00:00 Test Item Value Reference Range Interpretation Comments PHOSPHORUS (BEAKER) (test code = 2.9 mg/dL 2.3-4.7 604) [id number] 06:00:00 Test Item Value Reference Range Interpretation Comments MAGNESIUM (BEAKER) (test code = 2.1 mg/dL 1.6-2.6 627) BASIC METABOLIC [id number] 06:00:00 Test Item Value Reference Range Interpretation [...] NOT APPLICABLE FOR DIALYSIS PATIEN TS. POCT-GLUCOSE [id number] 05:44:00 Test Item Value Reference Range Interpretation Comments POC-GLUCOSE METER 157 mg/dL 70-110 H TESTED AT [facility] 6720 (BEAKER) (test code = ALI[place] 1538) [address] CBC W/PLT COUNT & AUTO [id number] 04:29:00 Test Item Value Reference Range Interpretation [...] = 2801) RAD, CHEST, 1 VIEW, NON [id number] 04:26:00Reason for exam:->evaluate for pneumo r/t CTShould this be performed at the bedside?->YesFINAL REPORT CLINICAL INDICATION: Support lines. Comparison: 06/10/2018 The cardiomediastinal contours are stable. The lung volumes remain low. The lateral pulmonary opacities are similar to previous within variation of acquisition technique. There is no pneumothorax. A tracheostomy tube is stable. Signed: Mayra Garcia MDReport Verified Date/Time: 06/12/2018 04:26:44 Reading Location: [address] Reading Room [id number] 04:02:00 Test Item Value Reference Range Interpretation Comments PARTIAL THROMBOPLASTIN TIME 29.1 seconds 22.5-36.0 ([facility]) (test code = 760) PROTHROMBIN [id number] 04:01:00 Test Item Value Reference Range Interpretation Comments PROTIME ([facility]) (test code = 13.4 seconds 11.7-14.7 759) INR ([facility]) (test code = 370) 1.0 <=5.9 RECOMMENDED COUMADIN/WARFARIN INR THERAPY RANGESSTANDARD DOSE: 2.0 - 3.0 Includes: PROPHYLAXIS for venous thrombosis, systemic embolization; TREATMENT for venous thrombosis and/or pulmonary embolus.HIGH RISK: Target INR is 2.5-3.5 for patients with mechanical heart valves.POCT-GLUCOSE [id number] 00:10:00 Test Item Value Reference Range Interpretation Comments POC-GLUCOSE METER 225 mg/dL 70-110 H TESTED AT [place] [address] ([facility]) (test code = ALIYA Ruiz [facility] 1538) [address] POCT-GLUCOSE [id number] 06:14:00 Test Item Value Reference Range Interpretation Comments POC-GLUCOSE METER 129 mg/dL 70-110 H TESTED AT [place] [address] ([facility]) (test code = BANNER Sara [facility] 1538) [address] TSH/FREE T4 IF [id number] 04:46:00 Test Item Value Reference Range Interpretation Comments THYROID STIMULATING HORMONE 0.87 uIU/mL 0.35-4.94 ([facility]) (test code = 772) CBC W/PLT COUNT & AUTO [id number] 04:30:00 Test Item Value Reference Range Interpretation Comments WHITE BLOOD CELL COUNT ([facility]) 16.2 K/ L 3.5-10.5 H (test code = 775) RED BLOOD CELL COUNT ([facility]) 4.01 M/ L 4.63-6.08 L (test code = 761) HEMOGLOBIN ([facility]) (test code = 12.9 GM/DL 13.7-17.5 L [...] 0-1 PERCENT (BEAKER) (test code = 2801) [id number] 04:26:00 Test Item Value Reference Range Interpretation Comments PREALBUMIN (BEAKER) (test code = 25 mg/dL 14-45 586) [id number] 04:24:00 Test Item Value Reference Range Interpretation Comments PHOSPHORUS (BEAKER) (test code = 3.5 mg/dL 2.3-4.7 604) [id number] 04:24:00 Test Item Value Reference Range Interpretation Comments MAGNESIUM (BEAKER) (test code = 2.0 mg/dL 1.6-2.6 627) BASIC METABOLIC [id number] 04:24:00 Test Item Value Reference Range Interpretation [...] NOT APPLICABLE FOR DIALYSIS PATIEN TS. PROTHROMBIN TIME/[id number] 04:19:00 Test Item Value Reference Range Interpretation Comments PROTIME (BEAKER) (test code = 14.5 seconds 11.7-14.7 759) INR (BEAKER) (test code = 370) 1.1 <=5.9 RECOMMENDED COUMADIN/WARFARIN INR THERAPY RANGESSTANDARD DOSE: 2.0 - 3.0 Includes: PROPHYLAXIS for venous thrombosis, systemic embolization; TREATMENT for venous thrombosis and/or pulmonary embolus.HIGH RISK: Target INR is 2.5-3.5 for patients with mechanical heart valves.[id number] 04:19:00 Test Item Value Reference Range Interpretation Comments PARTIAL THROMBOPLASTIN TIME 29.7 seconds 22.5-36.0 (BEAKER) (test code = 760) POCT-GLUCOSE [id number] 01:04:00 Test Item Value Reference Range Interpretation Comments POC-GLUCOSE METER 128 mg/dL 70-110 H TESTED AT [facility] 6720 (BEAKER) (test code = ALIYA Ruiz [place] 1538) [address] POCT-GLUCOSE [id number] 18:19:00 Test Item Value Reference Range Interpretation Comments POC-GLUCOSE METER 93 mg/dL 70-110 TESTED AT [place] [address] (BEAKER) (test code = ALIYA Ruiz [facility] [address] 1538) POCT-GLUCOSE [id number] 11:44:00 Test Item Value Reference Range Interpretation Comments POC-GLUCOSE METER 87 mg/dL 70-110 TESTED AT [place] [address] (BEAKER) (test code = ALIYA Ruiz [facility] [address] 1538) POCT-GLUCOSE [id number] 06:13:00 Test Item Value Reference Range Interpretation Comments POC-GLUCOSE METER 158 mg/dL 70-110 H TESTED AT [facility] 6720 (BEAKER) (test code = ALIYA Ruiz [place] 1538) [address] BLOOD GAS, [id number] 04:53:00 Test Item Value Reference Range Interpretation [...] = 1818) RAD, CHEST, 1 VIEW, NON [id number] 04:42:00Reason for exam:->s/p tracheostomyShould this be performed [...] Carrillo Verified Date/Time: 06/10/2018 04:42:37 Reading Location: [address] Reading Room [id number] 04:29:00 Test Item Value Reference Range Interpretation Comments MAGNESIUM (BEAKER) 2.2 mg/dL 1.6-2.6 Specimen slightly (test code = 627) hemolyzed [id number] 04:29:00 Test Item Value Reference Range Interpretation Comments PHOSPHORUS (BEAKER) 3.7 mg/dL 2.3-4.7 Specimen slightly (test code = 604) hemolyzed BASIC METABOLIC [id number] 04:29:00 Test Item Value Reference Range Interpretation [...] S NOT APPLICABLE FOR DIALYSIS PATIEN TS. [id number] 04:18:00 Test Item Value Reference Range Interpretation Comments PARTIAL THROMBOPLASTIN TIME 24.5 seconds 22.5-36.0 (BEAKER) (test code = 760) PROTHROMBIN TIME/[id number] 04:17:00 Test Item Value Reference Range Interpretation Comments PROTIME (BEAKER) (test code = 13.7 seconds 11.7-14.7 759) INR (BEAKER) (test code = 370) 1.0 <=5.9 RECOMMENDED COUMADIN/WARFARIN INR THERAPY RANGESSTANDARD DOSE: 2.0 - 3.0 Includes: PROPHYLAXIS for venous thrombosis, systemic embolization; TREATMENT for venous thrombosis and/or pulmonary embolus.HIGH RISK: Target INR is 2.5-3.5 for patients with mechanical heart valves.CBC W/PLT COUNT & AUTO [id number] 04:06:00 Test Item Value Reference Range Interpretation [...] PERCENT (BEAKER) (test code = 2801) POCT-GLUCOSE [id number] 01:05:00 Test Item Value Reference Range Interpretation Comments POC-GLUCOSE METER 161 mg/dL 70-110 H TESTED AT [facility] 6720 (BEAKER) (test code = ALIYA Ruiz [facility] 1538) [address] RAD, CHEST, 1 VIEW, NON [id number] 22:19:00Reason for exam:->Laryngeal massShould this be performed [...] MDReport Verified Date/Time: 06/09/2018 22:19:49 Reading Location: [facility] B1 C013W Consult Reading Room RAD, CHEST, 1 VIEW, NON [id number] 20:37:00Reason for exam:->Laryngeal massShould this be performed [...] Morales Verified Date/Time: 06/09/2018 20:37:30 Reading Location: [address] Reading Room RAD, CHEST, 1 VIEW, NON [id number] 20:18:00 Reason for exam:->Post-opShould this be performed [...] Sridevi Carrillo Verified Date/Time: 06/09/2018 20:18:45 Nayla caldera Location: [address] Reading Room CBC W/PLT COUNT & AUTO [id number] 19:32:00 Test Item Value Reference Range Interpretation [...] = 3438) Received comment: User comments: Slide comments:[id number] 19:25:00 Test Item Value Reference Range Interpretation Comments PHOSPHORUS (BEAKER) (test code = 4.7 mg/dL 2.3-4.7 604) [id number] 19:25:00 Test Item Value Reference Range Interpretation Comments MAGNESIUM (BEAKER) (test code = 2.2 mg/dL 1.6-2.6 627) BASIC METABOLIC [id number] 19:25:00 Test Item Value Reference Range Interpretation [...] NOT APPLICABLE FOR DIALYSIS PATIEN TS. PROTHROMBIN TIME/[id number] 19:18:00 Test Item Value Reference Range Interpretation Comments PROTIME (BEAKER) (test code = 13.0 seconds 11.7-14.7 759) INR (BEAKER) (test code = 370) 1.0 <=5.9 RECOMMENDED COUMADIN/WARFARIN INR THERAPY RANGESSTANDARD DOSE: 2.0 - 3.0 Includes: PROPHYLAXIS for venous thrombosis, systemic embolization; TREATMENT for venous thrombosis and/or pulmonary embolus.HIGH RISK: Target INR is 2.5-3.5 for patients with mechanical heart valves.[id number] 19:18:00 Test Item Value Reference Range Interpretation Comments PARTIAL THROMBOPLASTIN TIME 24.0 seconds 22.5-36.0 (BEAKER) (test code = 760) [id number] 12:47:00 Test Item Value Reference Range Interpretation Comments HEMOGLOBIN (BEAKER) (test code = 15.7 GM/DL 13.7-17.5 410) PLATELET [id number] 12:47:00 Test Item Value Reference Range Interpretation Comments PLATELET COUNT (BEAKER) (test 203 K/CU MM 150-450 code = 756) History and Physical Notes Date/Time Note Provider Source 2022-11-28 0894-37-60P98:16:45Formatting of this note is IM -INTERNAL [facility] - 21:16:45 different from the original.[facility] Admission H&P Date of Service: 3CHIEF ST [...] ago with an elevated lipase level in [place]. At this time, patient will be admitte [...] ENDOSCOPIC RETROGRADE CHOLANGIOPANCRETOGRAPHY N/ A 01/05/2021 Surgeon: Sadiq Napier MD; Location: [facility] OR Location ESOPHAGEAL DILATATION N/A 02/11/2020 Surgeon: Fan Espinal MD; Location: [facility] OR Location ESOPHAGOGASTRODUODENOSCOPY N/A 01/20/2020 Surgeo n: Fan Espinal MD; Location: [facility] OR Location ESOPHAGOGASTRODUODENOSCOPY N /A 02/01/2020 Surgeon: Sadiq Napier MD; [facility] Location ESOPHAGOGASTRODUODENOSCOPY N/A 02/11/2020 Surgeo n: Fan Espinal MD; Location: [facility] OR Location GASTROSTOMY INTRAOPERATIVE CHOLANGIOGRAM N/A 02/15/2020 Surgeon: Cindy Rodriguez MD; Location: [facility] OR Locati on LAPAROSCOPIC CHOLECYSTECTOMY N/A 02/15/2020 Surg dick: Cindy Rodriguez MD; Location: [facility] OR Location TRACHEOSTOMY UPPER ULTRASOUND (SHX) [...] these medications albuterol 90 mcg/actuation inhaler Comments: [place] son for Stopping: ARIPiprazole 5 mg tablet [...] liqour per week Drug use: Yes Types: Ariel valiente Social Determinants of Health Financial Resource Strain: Low Risk (11/13/2022) Overall Financial Resource Strain (CARDIA) Difficulty of Paying Li ving Expenses: Not hard at all Food Insecurity: No Fo od Insecurity (11/13/2022) Hunger Vital Sign Worried About Running Out of Food in the Last Year: Jeevan jacob Ran Out of Food in the Last [...] in the Last Year: No REVIEW OF ZXZVSUE78 systems negative ex cept per HPIPHYSICAL EXAMINATIONBP [...] jayashree high risk of morbidity and mortality.[place] [employer] w as verified during stayMomontserrat Vilchis MD Electronically signed by Sara Vilchis MD a t 11/29/2022 1:52 AM WDM29230-4Fmcbikg and physica l rxhjEI7725-17-86A98:52:42History and physical noteTXT1.2.840.740775.1.13.104.2.7.2.920942|1887 5011 22AVAvailable for patient qgkx98472-4Flmmstk and physical noteLNIM-INTERNAL MEDICINE STAFFIM-[facility] MEDICINE STAFFUT[address] XwtsEyswuzrlcSuazhmityNLVA6949777122QKFGWGPMDZHX NGAL JUBKWP3574-31-68Q45:52:421.2.840.857786.1.72.3.1 5|1. 2.840.749162.1.13.104.2.7.2.727879_[id number] 2022-11-13 8690-54-86I09:44:36Formatting of this note is [facility] - 03:44:36 different from the original.[facility] PHYSICALPCP: Michelle Date of Service: 11/13/2022 IEF COMPLAINT: abdominal painHistory of Present Ygnndgk69 yo male with PMH of asthma, history of hyponatremia, squamous cell cancer of the larynx , admitted to the hospital as a direct admit from [facility] after he was found to have a lipase level of 824.Past Medical History: Diagno sis Date Aphonia 04/13/2019 Asthma Coronavirus infec tion 2019 Hx of laryngectomy 07/14/2018 Hyponatremia Leukocytosis Neck infection 08/11/2018 Other chr onic pancreatitis Squamous cell cancer of larynx Thyr oid disease Tracheostomy in place Past Surgical Hist ory: Procedure Laterality Date ENDOSCOPIC RETROGRADE CHOLANGIOPANCRETOGRAPHY N/A 01/05/2021 Surgeon: Sadiq Napier MD; Location: [facility] Location ESOPHAGEAL DILATATION N/A 02/11/2020 Surgeon: Fan Espinal MD; Location: [facility] OR Location ESOPHAGOGASTRODUODENOSCOPY N/A 01/20/2020 Surgeo n: Fan Espinal MD; Location: [facility] OR Location ESOPHAGOGASTRODUODENOSCOPY N /A 02/01/2020 Surgeon: Sadiq Napier MD; Location: [facility] Location ESOPHAGOGASTRODUODENOSCOPY N/A 02/11/2020 Surgeo n: Fan Espinal MD; Location: [facility] OR Location GASTROSTOMY INTRAOPERATIVE CHOLANGIOGRAM N/A 02/15/2020 Surgeon: Cindy Rodriguez MD; Location: [facility] OR Locati on LAPAROSCOPIC CHOLECYSTECTOMY N/A 02/15/2020 Surg dick: Cindy Rodriguez MD; Location: [facility] OR Location TRACHEOSTOMY UPPER ULTRASOUND (SHX) N/A 01/29/2020 Surgeon: Brodie Jansen MD; Locat ion: [facility] Location Allergies Allergen Reactions Bactrim [Sulfamethoxazole-Trimethoprim ] Rash Iodine And Iodide Containing Products Nause a Only Penicillins Hives and Rash Other reaction(s ): Unknown - See comments Ampicillin Unknown - See comments Levofloxacin Hives and Rash [facility] Socioeconomic History Marital status: Mani reilly Spouse name: Daniel Number of children: 0 Years of education: 16 Highest education level: Some jt ege, no degree Occupational 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 Joe Treadwell 97896-9Pyaouqc and physical ozbgMR8363-58-57T45:56:00History and physical noteTXT1.2.840.365546.1.13.104.2.7.2.807123|1874 0789 75AVAvailable for patient zdfk69135-1Gtvytgl and physical noteLNUT[address] NgzgQzulrwxldShevxlsmfULZL9912125614IMWKAIOQNKDA NGAL HZTTUK6372-19-01D22:56:001.2.840.133456.1.72.3.1 5|1. 2.840.136145.1.13.104.2.7.2.727879_[id number] 2022-11-04 5379-10-08A06:53:48Formatting of this note is [facility] - 21:53:48 different from the original.[facility] Health H&PDate of Service: 3CHIEF COMPLAINT: abdominal pain, nausea/vomiting, diarrheaHistory of Present Rlsxiin72 yo male with pmh of asthma, CO [...] ENDOSCOPIC RETROGRADE CHOLANGIOPANCRETOGRAP HY N/A 01/05/2021 Surgeon: Sadiq Napier MD; Locati on: [facility] Location ESOPHAGEAL DILATATION N/A 02/11/2020 Surgeon: Fan Espinal MD; Location: [facility] OR Location ESOPHAGOGASTRODUODENOSCOPY N/A 01/20/2020 Surgeo n: Fan Espinal MD; Location: [facility] Location ESOPHAGOGASTRODUODENOSCOPY N /A 02/01/2020 Surgeon: Sadiq Napier MD; Location: [facility] Location ESOPHAGOGASTRODUODENOSCOPY N/A 02/11/2020 Surgeo n: Fan Espinal MD; Location: [facility] OR [facility] GASTROSTOMY INTRAOPERATIVE CHOLANGIOGRAM N/A 02/15/2020 Surgeon: Cindy Rodriguez MD; [facility] CHOLE[facility]STECTOMY N/A 02/15/2020 Surg dick: Cindy Rodriguez MD; Location: [facility] OR [facility] TRACHEOSTOMY UPPER ULTRASOUND (SHX) N/A [...] History Marital status: Single Spo use name: [place] Number of children: 0 Years of education: 16 Highest education level: Some jt ege, no degree 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 ---- ASSESSMENT/PLANJimmie Jarrod Pugh is a 52 year old obese male with PMH as listed above, admitted to the hospital with: Acute on chronic pancreatitis:-- Will keep NPO-- IV fluid hydration-- Will order Zofran for pain control a s well as Narco and continue the Fentanyl for as n eed pain control-- AM lipid panel-- Will continue Creon2. Asthma: stable-- Will resume albuterol a s needed3. Hypothyroidism-- Will continue with levothyroxine4. Bipolar disease-- Will resume escitalopram, gabapentin, aripiprazole5. GERD:-- will resume omeprazoleProphylaxis: DVT- enoxaparinCode Status: addressed: FCElectronical ly signed by Eli Toney MD at 11/05/2022 3:54 AM LJO91819-2Khtllpf and physical bwiiCG0389-03-64P82:54:37History and physical noteTXT1.2.840.961846.1.13.104.2.7.2.652634|1867 6726 13AVAvailable for patient kvre07603-7Nhtwzji and physical noteLNUT[address] LokcVmowpvnleFaveasnigUMBF4370374537CBWZCWPNYBZE NGAL CXYFJL4295-32-59Z97:54:371.2.840.204907.1.72.3.1 5|1. 2.840.827985.1.13.104.2.7.2.727879_[id number] Notes Date/Time Note Provider Source 2022-12-18 6475-51-32X12:00:00Formatting of [facility] 14:00:00 this note is different from the original.Images from the original note were not included.Venipuncture collection performed by clean technique on the right anticubitus. Total of 1 attempts were made. Slight pressure and a bandage/dressing were applied to the site(s). The patient experienced no complications. The following specimens were processed according to instructions and sent to [facility] laboratories per lab order on 12/18/2022 : LT BLUE SST 1 RED LAV 1 PPT DK GREEN (LiHep) DK GREEN (SodH) ARROYO DK BLUE (K2) DK BLUE (S) ACD Blood Culture NIPT/NTD 82540-7Ioknu BiwlMP2948-26-13P63:19:37Nurse NoteTXT1.2.840.785267.1.13.104.2.7 .2.954800|[id number] for patient rwfa67859-4Aymjf Note[id number] 76TLEHFJTTKSPKZPQNSPHLFH3909-73-08 T13:19:371.2.840.540048.1.72.3.15| 1.2.840.549959.1.13.104.2.7.2.7278 [id number] 2022-12-17 4818-05-63A71:29:16Formatting of [facility] 09:29:16 this note might be different from the original.Person you are trying to reach is not accepting calls. Has earliest appointment with Dr. Gunter .Floresita Mortensen LVN 12/17/2022 9:29 AM 38285-5Ytuxowbek encounter TpueLM2361-87-59N69:29:48Telephone encounter NoteTXT1.2.840.355360.1.13.104.2.7 .2.404608|[id number] for patient aiyc52826-1TvypEVGKCLLBRQ[id number] 60FWOUZAUOOIYPPUWHXWPXQK7450-54-23 T09:29:481.2.840.840659.1.72.3.15| 1.2.840.897243.1.13.104.2.7.2.7278 [id number] 2022-12-17 8656-04-32B41:21:46Formatting of Pauly Michelle [facility] 09:21:46 this note might be different from the original.Pt calling to see if she can get a sooner appointment than the one he has today at 4:20. 59807-1Pyruudbdj encounter MfyuTU3415-41-51Q22:23:09Telephone encounter NoteTXT1.2.840.397020.1.13.104.2.7 .2.059640|[id number] for patient ckqt73291-6IhqdKM204478703Tjkal C Rianna[id number] 35VAILOJMSQPJPAKPPRRNMTQ2676-28-62 T09:23:091.2.840.044327.1.72.3.15| 1.2.840.837267.1.13.104.2.7.2.7278 [id number] 2022-12-14 6120-87-52A70:24:20Formatting of Minoo johnson [facility] 13:24:20 this note might be different from the original.Call number provided and stated it was wrong number. Number on patient chart is disconnected. I send a [employer] message 44647-1Gnwtdsulj encounter OhouXT5492-09-66L05:25:07Telephone encounter NoteTXT1.2.840.400905.1.13.104.2.7 .2.955175|[id number] for patient pddz56372-3RxcrBI53392013Rjhtancq [id number] 10UDXDEZRWXVVICCKBLJMPHQ6545-03-56 T13:25:071.2.840.753761.1.72.3.15| 1.2.840.811376.1.13.104.2.7.2.7278 [id number] 2022-12-14 0149-71-08B33:56:29Formatting of Cate Lu [facility] 10:56:29 this note might be different from the original.Jimmie Pugh is a 52 year old malePts calling states, he is needing a post hospitalization appointment and is being discharged today 12/14/2022. They are requesting an OB with either YANELY Gunter or ADMINISTRATOR PESTICIDE Vinh.Please reach out to [phone] signed by Cate Lu at 12/14/2022 10:58 AM XFA28557-9Izfmlquyd encounter HcumIO4649-54-22N29:58:24Telephone encounter NoteTXT1.2.840.598325.1.13.104.2.7 .2.638337|[id number] for patient pihd76644-2RppiUX968646659Rdiltc Dyan Lu[id number] 16IPYQWDUREQEAMSPFWRCAVV7093-19-90 T10:58:241.2.840.362183.1.72.3.15| 1.2.840.697339.1.13.104.2.7.2.7278 [id number] 2022-12-11 1461-52-04T44:43:02Formatting of [facility] 16:43:02 this note might be different from the original.Attempted to contact patient, left message. 16546-2Tzmpnlpeg encounter BjohZC4797-27-25M84:44:21Telephone encounter NoteTXT1.2.840.322948.1.13.104.2.7 .2.074611|[id number] for patient hwoh91769-0RiwrCEORJVZFVX87 [id number] 79IZLMGOASWMBSXONTYCFEQF0867-57-90 T16:44:211.2.840.102180.1.72.3.15| 1.2.840.603472.1.13.104.2.7.2.7278 [id number] 2022-12-10 6863-02-77H80:13:55Formatting of Tez [facility] 11:13:55 this note might be different from Hesham the original.Patients spouse is returning call regarding referral spouse was advised that appointment is needed but declined and requested a call from nurse. 27652-0Apemrihnx encounter OflqAH5947-90-63N30:14:34Telephone encounter NoteTXT1.2.840.751872.1.13.104.2.7 .2.639463|[id number] for patient dugp78700-9TtaxUI190219714Qwsejqeg her S [id number] 07YZPVIVDCRTMMGTDTBERABC5714-74-15 T11:14:341.2.840.150840.1.72.3.15| 1.2.840.100944.1.13.104.2.7.2.7278 [id number] 2022-12-07 1023-48-92C51:31:15Formatting of [facility] 17:31:15 this note might be different from the original.Notified family member that patient needs to call for appointment 53200-6Djgbazzjn encounter BtucTM2090-05-83E22:31:55Telephone encounter NoteTXT1.2.840.158222.1.13.104.2.7 .2.082843|3599082048WLHccvoogcs for patient pguv66614-4WgseIYHGVZRBAI[id number] 44MAFMGAUBUUUWXYFZUJOXVM3819-16-07 T17:31:551.2.840.202607.1.72.3.15| 1.2.840.187048.1.13.104.2.7.2.7278 [id number] 2022-12-07 8829-20-81D89:15:55Formatting of Manpreet Escobar [facility] 11:15:55 this note might be different from Amanda the original.Jimmie Pugh is a 52 year old malePt called stating that pain management has not yet received referral fax # [phone] number is [phone] signed by Manpreet Corado at 12/07/2022 11:21 AM CYB68788-0Qgyohttxx encounter UhnzUE1772-21-62X25:21:26Telephone encounter NoteTXT1.2.840.087769.1.13.104.2.7 .2.674635|9501054802HSLjxzwgwek for patient ihpw28002-1ZyhpJN352347406Bvlnh Morales [address]TXTX[address] 72YOHRWEQOTTQVFSJIBJHAIW7187-82-55 T11:21:261.2.840.570924.1.72.3.15| 1.2.840.932204.1.13.104.2.7.2.7278 79_[id number] 2022-12-07 0757-48-69V59:31:10Formatting of [facility] 08:31:10 this note might be different from the original.Attempted to contact patient, left message on voicemail with EC to call back 53129-0Yteeroano encounter YrllST1864-75-64Q95:31:44Telephone encounter NoteTXT1.2.840.967415.1.13.104.2.7 .2.713416|[id number] for patient cwog47513-5ZscdVPICDYGHQZ[address]TXTX[address] 66BHLHVBQKEAFPIXGSGXTRYD9654-06-99 T08:31:441.2.840.955657.1.72.3.15| 1.2.840.351006.1.13.104.2.7.2.7278 79_[id number] 2022-12-06 9615-16-53M94:55:36Formatting of [facility] 14:55:36 this note might be different from the original.Attempted to contact patient, not taking calls. Patient needs to be seen as noted in previous message. Thank you. 23962-2Qkdeecyrw encounter OjemMR7908-51-01F40:57:51Telephone encounter NoteTXT1.2.840.166752.1.13.104.2.7 .2.995002|[id number] for patient uxyl50228-2QbaoQFVTECZKRF[address]TXTX[address] 63RYFDRKJPAHBRSQJVFMHXQY1789-04-65 T14:57:511.2.840.507646.1.72.3.15| 1.2.840.624664.1.13.104.2.7.2.7278 79_[id number] 2022-12-06 2759-70-49A81:51:49Formatting of [facility] 13:51:49 this note might be different from the original.Patient's Daniel is calling requesting the referral for pain management be re faxed to [phone]. See previous call. She states they are also requesting his most recent medical records. 72091-5Fhkdnuujm encounter SjlfZD8356-22-05K27:54:18Telephone encounter NoteTXT1.2.840.003425.1.13.104.2.7 .2.085379|9544393066OBAobxbiakm for patient vmfj19059-1XptcPI72771613Lxfrb S Javy[address]TXTX[address] 94ODOTHNQEAPUYTKRWEUVQPL9785-66-99 T13:54:181.2.840.429217.1.72.3.15| 1.2.840.175590.1.13.104.2.7.2.7278 79_[id number] 2022-12-06 5936-58-33M83:09:33Formatting of [facility] 09:09:33 this note might be different from the original.Attempted to contact patient, patient not accepting calls, I will send my chart message. 65116-7Hcgspmqey encounter ZxqvRY4094-71-40W03:12:04Telephone encounter NoteTXT1.2.840.126254.1.13.104.2.7 .2.466269|9250468418MIJbhichtfw for patient ctep98492-6UkmyRUZQCKVJTM[address]vdGal[address]onGalvestonTX[place] 92DCQNLYFUFVTRZLILQAXOHL2541-11-06 T09:12:041.2.840.261791.1.72.3.15| 1.2.840.886170.1.13.104.2.7.2.7278 [id number] 2022-12-04 [id number]:02:14Formatting of Anderson meyer RN [facility] 17:02:14 this note is different from the original.TRANSITIONAL CARE MANAGEMENT ASSESSMENT12/04/2022 Jimmie Pugh728238NRobert Jarrod Pugh is a 52 year old /White male was admitted on 11/28/22 to [facility], [facility] MED SURG. He was discharged on 11/30/22 with discharge disposition of HR- Routine Discharge.Admitting Physician: Zander Santos Diagnosis: Acute on chronic pancreatitisLinked Episodes Type: Episode: Status: Noted: Resolved: Last update: Updated by: TRANSITION OF CARE TCM Active 11/30/2022 12/04/2022 12:45 PM Anderson Francisco, RN Comments: TCM Vyf-nonx-nz-face outreach documentation: CM made follow up call to patient post-discharge. No answer and message states "the person you are trying to call is not accepting calls at this time". Two attempts made to reach patient.Discharge AssessmentChart Assessed: 12/04/22TCM Outreach Completed: 12/04/22 Future Appointments: Future Appointments Provider Department Dept Phone 01/11/2023 2:00 PM Ross Gunter MD [facility] [phone] 03/18/2023 11:00 AM Michelle Justice FNP [facility] [phone] [id number] encounter [id number]:03:42Telephone encounter NoteTXT1.2.840.456277.1.13.104.2.7 .2.350461|[id number] for patient [id number] A Gaudet RN[id number] 60ROECUUCSXNDPRWHPNTSPVA7377-97-77 T17:03:421.2.840.090165.1.72.3.15| 1.2.840.853320.1.13.104.2.7.2.7278 [id number] 2022-12-04 [id number]:39:07Formatting of [facility] 15:39:07 this note might be different from the original.Attempted to contact patient, not taking calls at this timeNeeds appointment 55191-5Emkumfbok encounter MhvbMA2478-80-98Q32:45:03Telephone encounter NoteTXT1.2.840.084533.1.13.104.2.7 .2.477654|[id number] for patient yatq34343-8WrlpBEQBJIWCUW[address]TXTX[address] 85OIMDBHLVTICRXXGCREGNGW0432-83-86 T16:45:031.2.840.217597.1.72.3.15| 1.2.840.841062.1.13.104.2.7.2.7278 [id number] 2022-12-04 4158-15-44D71:48:25Formatting of Elodia Fisher [facility] 13:48:25 this note might be different from the original.Ms Cooney is calling Dr Mckeon's office has not received referral for pain management. Please place outgoing referral. Please call and advise thanks. 36299-5Tgkgivwxb encounter OcnoMA0986-06-83Z79:50:18Telephone encounter NoteTXT1.2.840.230194.1.13.104.2.7 .2.574098|[id number] for patient rhky89259-8DnqeHD970915547Hgdtdm D [address] IkvzOgnykinfxBvyjxkdnuZRSJ82716007 41THVQJXYPRUZGTUDVEZXHUH4651-29-63 T13:50:181.2.840.852588.1.72.3.15| 1.2.840.481264.1.13.104.2.7.2.7278 [id number] 2022-12-04 8897-22-24F84:47:28Formatting of [facility] 12:47:28 this note might be different from the original.CM made follow up call to patient post-discharge. No answer and message states "the person you are trying to reach is not accepting calls at this time". 00384-5Lnsdimtvu encounter MagmEC7574-88-29V47:48:25Telephone encounter NoteTXT1.2.840.065484.1.13.104.2.7 .2.308341|[id number] for patient wayk92171-1QbivQVZVMVOVQD[address]TXTX[address] 04DERGPDAIYUZPJGPMEGKAHQ6709-85-14 T12:48:251.2.840.563786.1.72.3.15| 1.2.840.605195.1.13.104.2.7.2.7278 [id number] 2022-11-30 1758-51-70R69:31:25Formatting of Ayde Ramon [facility] 10:31:25 this note might be different from Abebe RN the original.Problem: Falls, Risk ofGoal: Absence of fallsOutcome: Resolved Problem: Skin integrity Impaired (Risk or Actual)Goal: Wound healingOutcome: ResolvedGoal: Prevention of new skin breakdownOutcome: Resolved Problem: Discharge PlanningGoal: Adequate for dischargeOutcome: ResolvedGoal: Effective communicationOutcome: Resolved Problem: Venous Thromboembolism, (actual or risk of)Goal: Absence of venous thromboembolism (Risk)Outcome: ResolvedGoal: Prevent further complications associated with VTE diagnosis (Actual)Outcome: Resolved Problem: PainGoal: Control of pain at or below patient's documented comfort goalOutcome: ResolvedGoal: Reduction in pain sensationOutcome: Resolved 84590-9Wsip of care anibWX2816-36-71E58:31:31Plan of care noteTXT1.2.840.511200.1.13.104.2.7 .2.037021|[id number] for patient zbgs22083-7IrxsWJ246993995Enhxut A A Ar[place]o Ramirez [address]TXTX[address] 18VYZHAPRGZGSLNEDEJEMPYS0566-48-60 T10:31:311.2.840.551384.1.72.3.15| 1.2.840.457028.1.13.104.2.7.2.7278 [id number] 2022-11-29 8267-21-71L51:16:23Formatting of Greta Power [facility] 22:16:23 this note might be different from the original.Problem: Falls, Risk ofGoal: Absence of fallsOutcome: Progressing as expected Problem: Skin integrity Impaired (Risk or Actual)Goal: Wound healingOutcome: Progressing as expectedGoal: Prevention of new skin breakdownOutcome: Progressing as expected Problem: Discharge PlanningGoal: Adequate for dischargeOutcome: Progressing as expectedGoal: Effective communicationOutcome: Progressing as expected Problem: Venous Thromboembolism, (actual or risk of)Goal: Absence of venous thromboembolism (Risk)Outcome: Progressing as expectedGoal: Prevent further complications associated with VTE diagnosis (Actual)Outcome: Progressing as expected Problem: PainGoal: Control of pain at or below patient's documented comfort goalOutcome: Progressing as expectedGoal: Reduction in pain sensationOutcome: Progressing as expected 31247-2Rijw of care paxaTR8523-43-59V68:16:34Plan of care noteTXT1.2.840.628591.1.13.104.2.7 .2.151126|[id number] for patient cnli85612-1ZqnqTO473726458Mpzpa Kavattu RNUT[address] StreetHziqBuainvgexKsjbjftgxRWGL95536782 33KBNAYCSLOSOQEBBVQIWKDK1950-79-00 T22:16:341.2.840.537688.1.72.3.15| 1.2.840.217943.1.13.104.2.7.2.7278 [id number] 2022-11-29 4480-30-42N69:42:42Formatting of [facility] 15:42:42 this note might be different from the original.Problem: Falls, Risk ofGoal: Absence of fallsOutcome: Progressing as expected Problem: Skin integrity Impaired (Risk or Actual)Goal: Wound healingOutcome: Progressing as expectedGoal: Prevention of new skin breakdownOutcome: Progressing as expected Problem: Discharge PlanningGoal: Adequate for dischargeOutcome: Progressing as expectedGoal: Effective communicationOutcome: Progressing as expected Problem: Venous Thromboembolism, (actual or risk of)Goal: Absence of venous thromboembolism (Risk)Outcome: Progressing as expectedGoal: Prevent further complications associated with VTE diagnosis (Actual)Outcome: Progressing as expected Problem: PainGoal: Control of pain at or below patient's documented comfort goalOutcome: Progressing as expectedGoal: Reduction in pain sensationOutcome: Progressing as expected 91437-1Ztxd of care ctunQF4490-21-49C77:42:48Plan of care noteTXT1.2.840.387745.1.13.104.2.7 .2.906719|[id number] for patient yagd33612-3RfcjMQRIOEGQDC[address] StreetTXTX[address] 86KIXBHVOKTNVQKVGXPXHJLY7451-00-54 T15:42:481.2.840.295035.1.72.3.15| 1.2.840.113189.1.13.104.2.7.2.7278 [id number] 2022-11-29 1407-48-55I13:24:42Formatting of Jamar Gloria RN [facility] 03:24:42 this note might be different from the original.Problem: Falls, Risk ofGoal: Absence of fallsOutcome: Progressing as expected Problem: Skin integrity Impaired (Risk or Actual)Goal: Wound healingOutcome: Progressing as expectedGoal: Prevention of new skin breakdownOutcome: Progressing as expected Problem: Discharge PlanningGoal: Adequate for dischargeOutcome: Progressing as expectedGoal: Effective communicationOutcome: Progressing as expected Problem: Venous Thromboembolism, (actual or risk of)Goal: Absence of venous thromboembolism (Risk)Outcome: Progressing as expectedGoal: Prevent further complications associated with VTE diagnosis (Actual)Outcome: Progressing as expected Problem: PainGoal: Control of pain at or below patient's documented comfort goalOutcome: Progressing as expectedGoal: Reduction in pain sensationOutcome: Progressing as expected 35414-3Rlgi of care kcwyBT6260-45-17K70:24:45Plan of care noteTXT1.2.840.585953.1.13.104.2.7 .2.361549|[id number] for patient tjae58755-8JwpzPI134635433Vbornv Ojuri RN[address]TXTX[address] 26HFBGQEBUJPHCQFNODXZSBI0593-05-79 T03:24:451.2.840.636150.1.72.3.15| 1.2.840.233983.1.13.104.2.7.2.7278 [id number] 2022-11-28 6772-47-82N61:58:46Formatting of Marce valiente RN [facility] 17:58:46 this note might be different from the original.Report given to JEAN Chong Med Surg 45965-3Yjulrefux department QjcaVY4555-76-20D29:59:05[facility] NoteTXT1.2.840.631395.1.13.104.2.7 .2.546941|[id number] for patient kyju95484-2JgrkZR796095963Huvufx M Herrera RN[address]TXTX[address] 71KSLLOOIAIHKSGDYDEVPJRF4933-55-53 T17:59:051.2.840.207158.1.72.3.15| 1.2.840.600759.1.13.104.2.7.2.7278 [id number] 2022-11-28 3707-09-86F50:05:06Formatting of Marielos Alvarado RN [facility] 16:05:06 this note might be different from the original.Epigastric discomfort x3 days. +N/V 93407-1Fzxcxxkjg department Triage zllzOJ4985-66-20D83:05:30[facility] Triage noteTXT1.2.840.110734.1.13.104.2.7 .2.478538|[id number] for patient vywo11142-5Yvhnsligv department UvfwGE809044189Dpefspw Fief RNUT[address]TXTX[address] 53YXXEFRPIUUBZAGZLIUDPCL4970-58-63 T16:05:301.2.840.195892.1.72.3.15| 1.2.840.487952.1.13.104.2.7.2.7278 [id number] 2022-11-22 0730-96-42D38:40:01Formatting of Kirill Bass RN [facility] 15:40:01 this note might be different from the original.Pt given printed and verbal discharge instructions regarding epigastric pain, encouraged hydration. Pt verbalized understanding of instructions, pt awake alert oriented, resp reg unlabored, skin w/d, color appropriate for race, moves all ext well,pt encouraged to follow up with pcp. Advised to seek medical attention for new/prolonged/worsening of symptoms. PIV d'cd, dressing to site, catheter in tact.Awake, alert oriented, resp reg unlabored, skin w/d, pt leaving amb with steady gait, in no apparent distress. 64132-9Vonqgldhu department QnbaLV1173-05-87S26:40:43[facility] department NoteTXT1.2.840.622826.1.13.104.2.7 .2.822756|[id number] for patient iukj15977-9VyynHM592057514Fqgsolbl Sara Kali RNUTMB[address]TXTX[address] 98RIGPNMVTDKAWYTZHPBWODX0891-26-70 T15:40:431.2.840.738253.1.72.3.15| 1.2.840.215734.1.13.104.2.7.2.7278 [id number] 2022-11-22 0786-42-96X88:53:26Formatting of Manuel Power [facility] 12:53:26 this note might be different from the original.Patient c/o bilateral upper quadrant abdominal pain, patient has a history of chronic pancreatitis. 17876-0Cjsyioxbb department Triage hhcjED2597-52-13S89:53:56[facility] Triage noteTXT1.2.840.416528.1.13.104.2.7 .2.665721|[id number] for patient phxj48995-4Zqappqgge department JqkpAO264336256Bvifd S Cryer RNUT[address]TXTX[address] 48HNMAWHDAZUSKCYVWXUFVHV9584-73-27 T12:53:561.2.840.350841.1.72.3.15| 1.2.840.486213.1.13.104.2.7.2.7278 [id number] 2022-11-16 9222-41-42C06:59:56Formatting of [facility] 13:59:56 this note might be different from the original.OV notes from 11/15/22 printed and faxed to [phone] Mortensen LVN 11/16/2022 2:00 PM 05067-7Uickugjcx encounter TfswVC6853-70-68S73:00:23Telephone encounter NoteTXT1.2.840.550312.1.13.104.2.7 .2.421250|[id number] for patient hnyq73158-3HlbfHMCOHCHERG[address]vestonTXTX[address] 22CZHJYWEVWAQYUVNFNPBTME5288-02-51 T14:00:231.2.840.406184.1.72.3.15| 1.2.840.071308.1.13.104.2.7.2.7278 [id number] 2022-11-16 1897-24-01W79:51:44Formatting of Jaylin mast [facility] 13:51:44 this note might be different from the original.Kelin with [facility] is needing last progress notes for pt jeff. 73256-3Yxlktymvc encounter WfcgBK5897-28-84Q84:54:54Telephone encounter NoteTXT1.2.840.061969.1.13.104.2.7 .2.334558|[id number] for patient duvc99190-2UbfzCU54279402Qufup J [address]TX[address] 26GPHYPDVQDAEDQYGUJSETSU7489-18-14 T13:54:541.2.840.205531.1.72.3.15| 1.2.840.615151.1.13.104.2.7.2.7278 [id number] 2022-11-15 1211-80-40S59:44:39Formatting of Jenniffer Olivier RN [facility] 10:44:39 this note is different from the original.TRANSITIONAL CARE MANAGEMENT ASSESSMENT11/15/2022 Jimmie Pugh728238NRadelso Pugh is a 52 year old /White male was admitted on 11/12/22 to [facility] ([facility] 6B. He was discharged on 11/14/22 with discharge disposition of HR- Routine Discharge.Admitting Physician: Chrissie Treadwell Diagnosis: Acute on chronic pancreatitisLinked Episodes Type: Episode: Status: Noted: Resolved: Last update: Updated by: TRANSITION OF CARE TCM Active 11/06/2022 11/15/2022 10:43 AM Anderson Francisco RN Comments: TCM Bxv-pssl-by-face outreach documentation:Discharge AssessmentChart Assessed: 11/15/22TCM Outreach Completed: 11/15/22Do you have a few minutes to speak with me about how you are doing at home?: Yes (Patient's significant other stated patient is doing fine)Discharge InstructionsDo you understand your at-home instructions?: YesMedicationsHave you filled your prescriptions and do you have them in your home? : See comments (Will medicinal plant picker after MD appt)Do you know how to take your medications?: YesSuppliesDid you receive applicable home medical supplies/equipment?: N/AFollow Up AppointmentHas a follow up appointment been scheduled?: Yes (Patient was at MD appt during call)Do you have any questions about your follow up appointments?: NoAre you able to get to your appointment? Who will be taking you?: Yes (significant other)Home Health AssistanceHas the home health nurse contacted you since you've been home?: N/ASurvey - RecognitionIs there anything you would like to share about your recent hospitalization, or anyone you would like to recognize?: NoDo you have any suggestions for improvement?: NoDo you have any other questions or concerns at this time?: NoFuture Appointments: Future Appointments Provider Department Dept Phone 01/11/2023 2:00 PM [facility] [phone] 59403-5Zwsmjyjna encounter HdtbHE0496-68-63B34:45:03Telephone encounter NoteTXT1.2.840.962315.1.13.104.2.7 .2.536347|[id number] for patient deqj13072-2LrolXF053846203Qaepp B Porter RN[address]TXTX[address] 42KTRWVJGPRZOBOEHDWPAEAE7074-69-10 T10:45:031.2.840.735109.1.72.3.15| 1.2.840.862281.1.13.104.2.7.2.7278 [id number] 2022-11-14 8751-43-97B20:01:31Formatting of Piper power RN [facility] 01:01:31 this note might be different from the original.Problem: PainGoal: Control of pain at or below patient's documented comfort goalOutcome: Progressing as expectedGoal: Reduction in pain sensationOutcome: Progressing as expected Problem: Nausea/VomitingGoal: Absence of nausea/vomitingOutcome: Progressing as expected Problem: Infection RiskGoal: Absence of infectionOutcome: Progressing as expected 39716-1Eahb of care djfgZT0636-12-37W19:01:36Plan of care noteTXT1.2.840.430776.1.13.104.2.7 .2.820646|[id number] for patient smhy64320-2BrlqWZ340632523Lmguz N. Bongfen RN[address]TXTX[address] 02SPPTYGEKGYVWQDFXEEOQPA5135-35-77 T01:01:361.2.840.202190.1.72.3.15| 1.2.840.820008.1.13.104.2.7.2.7278 [id number] 2022-11-13 9044-30-49J33:30:02Formatting of Sayda Bashir V [facility] 11:30:02 this note might be different from RN the original.Problem: PainGoal: Control of pain at or below patient's documented comfort goalOutcome: Progressing as expectedGoal: Reduction in pain sensationOutcome: Progressing as expected Problem: Nausea/VomitingGoal: Absence of nausea/vomitingOutcome: Progressing as expected Problem: Infection RiskGoal: Absence of infectionOutcome: Progressing as expected 57927-3Grqx of care fdnvPX1592-68-58E29:30:06Plan of care noteTXT1.2.840.729565.1.13.104.2.7 .2.570536|[id number] for patient zstd50393-9XgiqHI181953612Ddxgzozs sarah Layne RN[address] ZpvcGnmwajldnLiaafpnkwESIE67996970 24BBRLMPDHPYRTBAAPRQDXAA8927-88-52 T11:30:061.2.840.731426.1.72.3.15| 1.2.840.570405.1.13.104.2.7.2.7278 [id number] 2022-11-13 1086-11-85V11:39:55Formatting of [facility] 03:39:55 this note might be different from the original.Problem: PainGoal: Control of pain at or below patient's documented comfort goal11/13/2022 0340 by Delisa Carter RNOutcome: Progressing as expected11/13/2022 033 by Delisa Carter RNOutcome: Progressing as expected11/13/2022 033 by Delisa Carter RNOutcome: Progressing as expectedGoal: Reduction in pain sensation11/13/2022 033 by Delisa Carter RNOutcome: Progressing as expected11/13/2022 033 by Delisa Carter RNOutcome: Progressing as expected Problem: Nausea/VomitingGoal: Absence of nausea/vomiting11/13/2022 0340 by Nita Bang, Fnu, RNOutcome: Progressing as expected11/13/2022 0339 by Delisa Carter RNOutcome: Progressing as expected Problem: Infection RiskGoal: Absence of infection11/13/2022 0340 by Delisa Carter RNOutcome: Progressing as expected11/13/2022 0339 by Delisa Carter RNOutcome: Progressing as expected 63858-3Pjwy of care grbxVA7443-53-90O37:40:28Plan of care noteTXT1.2.840.323002.1.13.104.2.7 .2.632555|[id number] for patient sqha52461-2TqvnXFEFURCRRE[address]vdGalvestonGalvestonTXTX[address] 55QMFXOIPRRORUFOLGXNFSWG7053-92-04 T03:40:281.2.840.286756.1.72.3.15| 1.2.840.884880.1.13.104.2.7.2.7278 [id number] 2022-11-13 4428-46-91G06:57:51Formatting of Rose Angulo [facility] 01:57:51 this note might be different from RN the original.Patient transferred to [facility] for diagnosis of acute on chronic pancreatitisPatient agrees to transfer/admit plan and verbalized understanding of plan of care, Patient awake alert, oriented, resp reg unlabored, skin w/d PIV patent, no s/s infiltration noted, No adverse reaction to medications given while in ED. Report given to [facility] personnel [place] [facility] [place] [address]-6Tiajluods department MtarSZ9451-59-21L72:04:51Emergency department NoteTXT1.2.840.429886.1.13.104.2.7 .2.099382|[id number] for patient btdm50036-5FnocQN890297238Qkljwx R Dai JEANUTMB[address]TXTX[address] 17LLPSYLPCFARGWXQZDPTSNI3938-07-41 T02:04:511.2.840.479192.1.72.3.15| 1.2.840.507138.1.13.104.2.7.2.7278 [id number] 2022-11-12 0904-16-02F25:49:33Formatting of Ashok Zaidi [facility] 18:49:33 this note might be different from Elizabeth RN the original.Abdominal pain that started this morning with n/v. Past history of pancreatitis multiple times in the past and thinks that he has it again. 89795-4Nhdmihnlb department Triage lsqvVG7116-95-61H22:50:10[facility] Triage noteTXT1.2.840.356415.1.13.104.2.7 .2.049481|[id number] for patient ocsg40557-7Ugqsizdtq department [id number] D Wierzbicki RNUTMB[address]TXTX[address] 26LAGMRLVFEDMCZTOTVVZGBU1272-67-05 T18:50:101.2.840.657636.1.72.3.15| 1.2.840.896666.1.13.104.2.7.2.7278 [id number] 2022-11-12 7508-94-32P77:36:00Formatting of [facility] 18:36:00 this note is different from the original.[facility] Emergency Department NotePatient Name: Jimmie Yoon of : 1970 52 year old maleTreatment Room: AR5/VH2Sxbwpfi Record Number: [id number] Care Physician: Michelle, CottaPatient Escorted by: Self [9]Mode of Arrival: Personal means [1]EMS Treatment Prior to ED Arrival:CHIEF BUSINESS OFFICER treatment: Medication (comment) CHIEF BUSINESS OFFICER treatment comments: daily medsTravel and Exposure Screening:SymptomsDoes patient have any of these symptoms?: (not recorded)Exposure ScreeningHas patient had contact with someone with a communicable disease in the last month?: (not recorded)Diseases exposed to:: (not recorded)Is Patient ?: (not recorded)Exposure Date: (not recorded)Chief Complaint:Chief Complaint Patient presents with Abdominal Pain History of Present Illness:History provided by: PatientLanguage cloth mercerizer operator used: No Abdominal PainPain location: LUQ and RUQPain quality: sharp Pain radiates to: Does not radiatePain severity: ModerateOnset quality: GradualDuration: 2 daysTiming: ConstantProgression: UnchangedChronicity: RecurrentContext comment: Patient report since being discharged had not really been able to eat/drink. Abd pain worsened today with vomiting. Denies fevers.Relieved by: NothingWorsened by: NothingIneffective treatments: Braxton.Associated symptoms: nausea and vomiting Associated symptoms: no fever Past Medical History/Immunizations:Past Medical History: Diagnosis Date Aphonia 04/13/2019 Asthma Coronavirus infection 2019 Hx of laryngectomy 07/14/2018 Hyponatremia Leukocytosis Neck infection 08/11/2018 Other chronic pancreatitis Squamous cell cancer of larynx Thyroid disease Tracheostomy in place Tetanus received in last 5 years: YesChildhood immunizations: Up-to-date Allergies:Allergies Allergen Reactions Bactrim [Sulfamethoxazole-Trimethoprim] Rash Iodine And Iodide Containing Products Nausea Only Penicillins Hives and Rash Other reaction(s): Unknown - See comments Ampicillin Unknown - See comments Levofloxacin Hives and Rash Past Social History:Tobacco Use Former Smokeless Tobacco: Never used smokeless tobacco. Comments: .5 PPD X >30 yrs Alcohol Use Not Currently. Comments: 1/5th of liqour per week Drug Use Yes; Marijuana. Past Surgical History:Past Surgical History: Procedure Laterality Date ENDOSCOPIC RETROGRADE CHOLANGIOPANCRETOGRAPHY N/A 01/05/2021 Surgeon: Sadiq Napier MD; Location: [facility] ESOPHAGEAL DILATATION N/A 02/11/2020 Surgeon: Fan Espinal MD; Location: [facility] OR Location ESOPHAGOGASTRODUODENOSCOPY N/A 01/20/2020 Surgeon: Fan Espinal MD; Location: [facility] OR Location ESOPHAGOGASTRODUODENOSCOPY N/A 02/01/2020 Surgeon: Sadiq Napier MD; Location: [facility] ([facility]) OR Location ESOPHAGOGASTRODUODENOSCOPY N/A 02/11/2020 Surgeon: Fan Espinal MD; Location: [facility] OR Location GASTROSTOMY INTRAOPERATIVE CHOLANGIOGRAM N/A 02/15/2020 Surgeon: Cindy Rodriguez MD; Location: [facility] OR Location LAPAROSCOPIC CHOLECYSTECTOMY N/A 02/15/2020 Surgeon: Cindy Rodriguez MD; Location: [facility] OR Location TRACHEOSTOMY UPPER ULTRASOUND (SHX) N/A 01/29/2020 Surgeon: Brodie Jansen MD; Location: Endoscopy () OR Location Review of Systems: Review of Systems Constitutional: Negative. Negative for fever. HENT: Negative. Eyes: Negative. Respiratory: Negative. Breasts: Negative. Cardiovascular: Negative. Gastrointestinal: Positive for abdominal pain, nausea and vomiting. Genitourinary: Negative. Musculoskeletal: Negative. Skin: Negative. Neurological: Negative. Psychiatric/Behavioral: Negative. Physical Exam: ED Triage Vitals [11/12/22 1850] Weight 81.2 kg (179 lb) Actual or estimated Height BP (!) 147/89 Pulse 81 Resp 18 Temp 37.2 ?C (98.9 ?F) Temp src SpO2 99 % Measured on Physical ExamVitals and nursing note reviewed. Constitutional: General: He is not in acute distress. Appearance: He is well-developed. He is ill-appearing. He is not toxic-appearing. HENT: Head: Normocephalic and atraumatic. Nose: Nose normal. Mouth/Throat: Mouth: Mucous membranes are dry. Cardiovascular: Rate and Rhythm: Normal rate and regular rhythm. Pulses: Normal pulses. Heart sounds: Normal heart sounds. Pulmonary: Effort: Pulmonary effort is normal. No respiratory distress. Breath sounds: Normal breath sounds. Abdominal: General: Bowel sounds are normal. There is no distension. Palpations: Abdomen is soft. Tenderness: There is abdominal tenderness. There is no guarding. Musculoskeletal: General: No tenderness or deformity. Normal range of motion. Cervical back: Normal range of motion and neck supple. Skin: General: Skin is warm and dry. Neurological: General: No focal deficit present. Mental Status: He is alert and oriented to person, place, and time. Psychiatric: Mood and Affect: Mood normal. Behavior: Behavior normal. Radiology:CT ABDOMEN PELVIS WO CONTRAST Final Result Exam: CT Abdomen and Pelvis without Contrast, 11/12/2022 10:00 PM. Ordering Physician: REGIS OBANDO. History: Nausea/vomiting. Pancreatitis, acute, severe. Technique: CT images of the abdomen and pelvis was obtained without intravenous contrast. Coronal and sagittal reconstructed images were obtained. CT technique and radiation exposure utilized ALARA. Technical Quality: Adequate. Comparison: CT abdomen and pelvis 11/04/2022. Findings: CT abdomen: Clear lung bases. Severe calcified atherosclerotic plaque in the right coronary artery. Prominent distal esophageal wall thickness measuring 5 mm. The stomach is mildly distended. The duodenum is not dilated. Cholecystectomy clips. No biliary ductal dilatation. The liver is not enlarged. Mild nodular hepatic contour from hepatic cirrhosis. Small recannulized umbilical vein. The unenhanced spleen and the right adrenal gland are normal. Stable minimally enlarged left adrenal gland. No adrenal nodule. Mild peripancreatic fat stranding and edema surrounding the pancreatic head and uncinate process from mild acute pancreatitis. Subtle mild focal low attenuation change in the pancreatic head measuring 1.9 x 0.9 cm image 40 series 2.. No pancreatic ductal dilatation. Normal caliber kidneys, no obstructive uropathy. Unchanged nonobstructing 2 mm calculus in the right kidney. Stable ectasia of the abdominal aorta. Calcified atherosclerotic plaque in the abdominal aorta, and in the iliac and femoral arteries. Enlarged paracaval lymph node posterior to the pancreas appears to be centrally necrotic, measuring 2.3 x 4.6 cm No pelvic nor inguinal lymphadenopathy. CT pelvis: No dilated bowel loops. Portions of the rectum and the colon are not distended. The distal rectal wall measures 1 cm in thickness. Severe sigmoid and moderate descending diverticulosis without acute diverticulitis. Appendix is not identified, no secondary signs to suggest acute appendicitis. No free intraperitoneal air [...] in the right kidney. Sigmoid and descending diverticulosis without acute diverticulitis. Enlarged prostate gland. AFC: 89561 RL 460 End of report. Lab Results:Lab Results CBC WITH DIFF - Abnormal Result [...] K, CL, CO2, GLUCOSE, BUN, CREATININE, CA) - [...] 0 - 220 U/L HEPATIC FUNCTION PANEL (87865) (ALB,T.PRO,BILI T,BU/BC,ALT,AST,ALK PHOS) - Normal TOTAL BILI 0.5 0.1 - 1.1 mg/dL BILI UNCON 0.3 0.1 - 1.1 mg/dL BILI CONJ 0.0 0.0 - 0.3 mg/dL T PROTEIN 6.9 6.3 - 8.2 g/dL ALBUMIN 3.9 3.5 - 5.0 g/dL ALK PHOS 98 34 - 122 U/L ALTv 17 5 - 50 U/L AST(SGOT) 16 13 - 40 U/L EKG:If EKG completed, see Procedure Note. Orders and Treatments:Orders Placed This Encounter Procedures CT ABDOMEN PELVIS WO CONTRAST CBC WITH DIFF BASIC METABOLIC PANEL (NA, K, CL, CO2, GLUCOSE, BUN, CREATININE, CA) HEPATIC FUNCTION PANEL (52539) (ALB,T.PRO,BILI T,BU/BC,ALT,AST,ALK PHOS) LIPASE Orders Placed This Encounter Medications FENTanyl PF (SUBLIMAZE (PF)) injection 25 mcg ondansetron (ZOFRAN (PF)) injection 4 mg morpHINE (2 mg/mL) injection 2 mg ondansetron (ZOFRAN (PF)) injection 4 mg NaCl 0.9% (NS) IV infusion 1,000 mL First Provider Eval:ED Events Date/Time Event User Comments 11/12/222020 Medical Screening Begins REGIS OBANDO -- 11/12/222020 First Provider Evaluation REGIS OBANDO -- AdmissionCareGuideline: Pancreatitis - INPT, InpatientBased on the indications selected for the patient, the bed status of Admit to Inpatient was determined to be METThe following indications were selected as present at the time of evaluation of the patient: Pancreatitis (acute or chronic) requiring inpatient care, as indicated by 1 or more of the following: - - Inability to maintain oral hydration (eg, needs IV fluid support) that persists after observation careAdmissionCare documentation entered by: [facility], 27th edition, Copyright 2022 [facility] [place] [employer] All Rights Reserved. 7977-11-87G44:46:02-05:00ED COURSEED Course as of 11/13/22 0046 Tue Nov 13, 202242 Discussed with Dr Treadwell at [facility] and patient accepted for observation admission. [CH] 0035 [facility] called about delay in transfer. Will be reaching out to hospitals shortly. [CH] SatNov 12, 2022 233 [facility] called to initiate transfer. [CH] 2323 On reassessment, pain and nausea continues. [CH] 2312 CT ABDOMEN PELVIS WO CONTRASTImpression: Mild acute pancreatitis has mildly improved as compared to the prior exam. Hepatic cirrhosis.Cholecystectomy.Non obstructing urinary calculus in the right kidney.Sigmoid and descending diverticulosis without acute diverticulitis.Enlarged prostate gland. [CH] 2114 HEPATIC FUNCTION PANEL (88933) (ALB,T.PRO,BILI T,BU/BC,ALT,AST,ALK PHOS)normal [CH] 2113 BASIC METABOLIC PANEL (NA, K, CL, CO2, GLUCOSE, BUN, CREATININE, CA)(!)No significant changes [CH] 2113 LIPASE(!)Increasing again [CH] 2108 CBC WITH DIFF(!)No leukocytosis noted [CH] ED Course User Index[CH] Regis Obando FNP Diagnosis/Impression as of 11/13/2245 Abdominal pain, unspecified abdominal location Acute on chronic pancreatitis Nausea and vomiting, unspecified vomiting type Procedures: ProceduresMDM:Medical Decision MakingPatient was evaluated for an emergency medical condition related to Abdominal Pain (/).Differential diagnoses considered by presenting complaints but not limited to:Abdominal Pain (acute)Bowel ObstructionDiverticulitis (acute)Pancreatitis (acute)Urinary Tract InfectionVomiting. Problems Addressed:Abdominal pain, unspecified abdominal location: acute illness or injuryAcute on chronic pancreatitis: chronic illness or injury with exacerbation, progression, or side effects of treatment Details: Lipase worsening, patient unable to tolerate po well and CT still notes acute pancreatitis but has mildly improved since last admittedNausea and vomiting, unspecified vomiting type: acute illness or injuryAmount and/or Complexity of Data ReviewedExternal Data Reviewed: labs, radiology and notes. Details: Reviewed prior admission notes and imagingLabs: ordered. Decision-making details documented in ED Course.Radiology: ordered. Decision-making details documented in ED Course.Discussion of management or test interpretation with external provider(s): Discussed with Dr. Treadwell, accepted for obs admissionRiskPrescription drug management.Parenteral controlled substances.Decision regarding hospitalization. Flowsheet Documentation: Scoring Tools: No data recorded Disposition/Condition:ED Disposition [facility] -- Comment Accepted to [facility] by Dr. Treadwell Discharge Medications:Patient's Medications START taking these medications No medications on file CONTINUE taking these medications which have NOT CHANGED ALBUTEROL 90 MCG/ACTUATION INHALER Inhale 2 Puffs every 6 (six) hours as needed for Wheezing or Shortness of Breath. ARIPIPRAZOLE 5 MG TABLET Take 1 tablet by mouth in the morning. CREON 12,000-38,000 -60,000 UNIT CAPSULE TAKE ONE CAPSULE BY MOUTH EVERY MORNING , ONE CAPSULE AT NOON AND 1 CAPSULE IN THE EVENING WITH MEALS ESCITALOPRAM OXALATE 20 MG TABLET TAKE ONE TABLET BY MOUTH EVERY MORNING GABAPENTIN 800 MG TABLET TAKE ONE TABLET BY MOUTH EVERY MORNING , ONE TABLET AT NOON AND 1 TABLET IN THE EVENING HYDROCODONE-ACETAMINOPHEN 5-325 MG TABLET Take 1 tablet by mouth every 6 (six) hours as needed for Pain (scale 4-6) for up to 7 days. Indications: acute pain KETOCONAZOLE 2 % SHAMPOO Apply to area(s) once daily as needed for Itching. LEVOTHYROXINE 150 MCG TABLET Take 1 tablet by mouth every morning. OMEPRAZOLE 40 MG CAPSULE Take one capsule by mouth twice daily for one week then one capsule by mouth daily START taking Modified Medications as Prescribed No medications on file STOP taking these medications No medications on file Follow-up: [facility]ron[facility] signed by: Regis Obando FN11/13/22 0051 ssociated attestation - Urszula Baeza MD - 11/14/2022 1:04 AM CDT Mavis was personally available for consultation in the Emergency Department during this encounter and patient evaluation by YANELY Obando.43834-1Ytylctkow Emergency department [id number], Wakili S1.2.840.221667.1.13.104.2.7.2.836 599FzkdejMvtdrvGDQ3875-62-74B19:04 :26Physician Emergency department NoteTXT1.2.840.639361.1.13.104.2.7 .2.349750|[id number] for patient nvzx57346-7Gajhigoey department NoteLNUT90 [address] StreetBadfGcbebrvmcFqzplhigxUVEC69457669 63FWDHDXBKWVLUALJRNYMPLL0959-02-91 T01:04:261.2.840.746916.1.72.3.15| 1.2.840.235143.1.13.104.2.7.2.7278 [id number] 2022-11-12 2952-08-32T15:36:00Formatting of [facility] 18:36:00 this note might be different from the original.AdmissionCareGuideline: Pancreatitis - INPT, InpatientBased on the indications selected for the patient, the bed status of Admit to Inpatient was determined to be METThe following indications were selected as present at the time of evaluation of the patient: Pancreatitis (acute or chronic) requiring inpatient care, as indicated by 1 or more of the following:- - Inability to maintain oral hydration (eg, needs IV fluid support) that persists after observation careAdmissionCare documentation entered by: Regis [facility], 27th edition, Copyright 2022 [facility] [place] [employer] All Rights Reserved. 9614-68-49L02:46:02-05:00Electroni adal signed by Regis Obando FNP at 11/13/2022 12:46 AM [id number] Admission Criteria1.2.840.526759.1.13.104.2. 7.4.867097.03619736-38-88K54:46:07 EC Admission CriteriaTXT1.2.840.866746.1.13.104 .2.7.2.607439|[id number] e for patient lrnz21690-6VztaTOALFJPSQE01 [address] StreetTXTX775[address]75 89RBORXNZLJNSYYXFKAOMEIA3514-79-22 T00:46:071.2.840.211752.1.72.3.15| 1.2.840.688526.1.13.104.2.7.2.7278 [id number] 2022-11-09 7447-13-75S14:54:41Formatting of [facility] 11:54:41 this note might be different from the original.Referral placed 69904-0Oqgqakxil encounter ClboSS7963-82-82I29:54:53Telephone encounter NoteTXT1.2.840.091896.1.13.104.2.7 .2.089260|[id number] for patient tmgu31055-6QxrlICQAQMWEKY01 [address] StreetTXTX[address]75 95SXGWTLDDESAYVWAOZISSHL6887-04-46 T11:54:531.2.840.584006.1.72.3.15| 1.2.840.137117.1.13.104.2.7.2.7278 [id number] 2022-11-09 9734-79-99R77:17:48Formatting of Opal Power [facility] 11:17:48 this note might be different from the original.Spoke with Daniel Atwood. Patient is seeing pain management for neuropathy. Patient has an appt with Dr. Gunter next week, soonest appt he could get in office. 01659-4Haajqjppx encounter AnwuQQ5785-09-02D49:18:33Telephone encounter NoteTXT1.2.840.413917.1.13.104.2.7 .2.710798|[id number] for patient tfns84121-8ZoxcIU978369828Evbgve Bergen RN[address]vestonGalvestonTXTX[address] 94XXTDZXOIQSEPYTEFAQMSAZ7089-75-59 T11:18:331.2.840.104291.1.72.3.15| 1.2.840.667182.1.13.104.2.7.2.7278 [id number] 2022-11-09 1667-55-24D90:47:25Formatting [facility] 10:47:25 this note might be different from the original.For what type of pain is he asking for the referral for? Pt has had a recent hospital stay follow up is recommended 13158-0Lycprovmf encounter DjeeVY2425-84-70N28:48:38Telephone encounter NoteTXT1.2.840.172468.1.13.104.2.7 .2.948662|[id number] for patient pzyr70806-6UyxfFINHJIESHD[address]vdGalvestonGalvestonTXTX[address] 67TTAEAZSBRZNXVVFMPCMIWO3733-51-15 T10:48:381.2.840.925791.1.72.3.15| 1.2.840.872217.1.13.104.2.7.2.7278 [id number] 2022-11-09 7414-02-28G24:51:30Formatting [facility] 09:51:30 this note might be different from the original.Please review and sign if appropriate. Referral pended. 13156-8Eqrnsdjch encounter OrczNT0334-27-57J57:51:55Telephone encounter NoteTXT1.2.840.002938.1.13.104.2.7 .2.513448|[id number] for patient teth09393-1BjciZAXWCJVXQU[address]vestonGalvestonTXTX[address] 74SNNLBYEAIQPTGQTEGLDLDV1230-55-49 T09:51:551.2.840.638152.1.72.3.15| 1.2.840.644964.1.13.104.2.7.2.7278 [id number] 2022-11-09 4330-10-61I95:36:19Formatting of Jimbo Campbell [facility] 09:36:19 this note might be different from the original.Pt called and would like the referral to pain management re-sent . PAUL MCKEONPlease advise 52576-4Zbqnqmfoa encounter SbqvJV5138-46-26L92:39:59Telephone encounter NoteTXT1.2.840.785508.1.13.104.2.7 .2.992397|[id number] for patient pmse94012-9YwwyPC629864434Sckwpf G [address]vestonGalvestonTXTX[address] 26DEICINKPDEZNBKPKCHEMWD6737-78-74 T09:39:591.2.840.153914.1.72.3.15| 1.2.840.376897.1.13.104.2.7.2.7278 [id number] 2022-11-09 7141-60-07W35:25:24Formatting of Eligio Blanca [facility] 08:25:24 this note might be different from the original.Patient has been scheduled for HFU 53909-1Yycfurxnn encounter TngnAY2343-06-42U39:25:42Telephone encounter NoteTXT1.2.840.328888.1.13.104.2.7 .2.567232|[id number] for patient tylu40763-7WwwnWH252104538Ebzvt D [address]TXTX[address] 10KPJIAATFQAEAEXGZOLTRUZ8030-36-06 T08:25:421.2.840.719917.1.72.3.15| 1.2.840.694787.1.13.104.2.7.2.7278 [id number] 2022-11-07 5643-30-65B73:13:09Formatting [facility] 13:13:09 this note might be different from the original.Images from the original note were not included.Anderson Francisco RNto Adc Pob Fam Med Pss MG 11/07/22 12:27 PMPlease contact pt to assist with scheduling a 1 week HFU appointment. Pt discharged 11/06/2022. Thank you. 26786-3Aawlfcgsl encounter TrfmLM5570-59-23W60:13:13Telephone encounter NoteTXT1.2.840.268069.1.13.104.2.7 .2.562246|[id number] for patient bovr11660-7KcegZDFALVVQGR[address]vdGalvestonGalvestonTXTX[address] 58QCMSKOEIBLGZFECBAJNZXG9620-92-01 T13:13:131.2.840.240249.1.72.3.15| 1.2.840.169547.1.13.104.2.7.2.7278 [id number] 2022-11-07 8543-95-47H13:02:01Formatting of Rama Fontenot [facility] 13:02:01 this note might be different from the original.Please assist - routed to wrong clinic 71885-5Ffiwezurn encounter ApsuFI9636-04-46L59:02:27Telephone encounter NoteTXT1.2.840.258516.1.13.104.2.7 .2.869125|[id number] for patient nzsu74070-9PfxbAB736967762Gqdiwxo[address] VwrxNavtotykiBrsprvynsDSYH12377665 55MHLKBOUREROUJVYAOBSCBR0931-56-02 T13:02:271.2.840.788070.1.72.3.15| 1.2.840.916715.1.13.104.2.7.2.7278 [id number] 2022-11-07 8279-29-71O64:26:40Formatting of Anderson meyer RN [facility] 12:26:40 this note is different from the original.TRANSITIONAL CARE MANAGEMENT ASSESSMENT11/07/2022 Jimmie NoonanQszq113951ZIregoc Jarrodfernandez Pugh is a 52 year old /White male was admitted on 11/04/22 to [facility], ADC MED SURG. He was discharged on 11/06/22 with discharge disposition of HR- Routine Discharge.Admitting Physician: Zander Santos Diagnosis: Acute on chronic pancreatitis:-- Advance diet to clear liquids patient tolerating well at this time-- Continue with IV fluid hydration-- Will order Zofran for pain control as well as Braxton and will switch to morphine as needed for pain 7-10-- AM lipid panel-- Will continue with Creon 2. Asthma: stable-- Will resume albuterol as needed 3. Hypothyroidism-- Will continue with levothyroxine 4. Bipolar disease-- Will resume escitalopram, gabapentin, aripiprazole 5. GERD:-- will resume omeprazole Linked Episodes Type: Episode: Status: Noted: Resolved: Last update: Updated by: TRANSITION OF CARE TCM Active 11/06/2022 11/07/2022 12:18 PM Anderson Francisco, RN Comments: TCM Cab-qsqb-nz-face outreach documentation:Discharge AssessmentChart Assessed: 11/07/22TCM Outreach Completed: 11/07/22Do you have a few minutes to speak with me about how you are doing at home?: Yes (Spoke with pt's significant other. States pt is doing ok.)Discharge InstructionsDo you understand your at-home instructions?: Yes (No questions at this time.)MedicationsHave you filled your prescriptions and do you have them in your home? : YesDo you know how to take your medications?: Yes (No questions.)Can you provide me with the names or descriptions of any gips-hyk-lqlvkbz or supplements you are currently taking?: Patient declinedSuppliesDid you receive applicable home medical supplies/equipment?: N/AFollow Up AppointmentHas a follow up appointment been scheduled?: NoMay I assist with scheduling this appointment?: Unable to schedule-referred to HFU Team (Message routed to clinic PSS.)Do you have any questions about your follow up appointments?: NoAre you able to get to your appointment? Who will be taking you?: Yes (SO)Home Health AssistanceHas the home health nurse contacted you since you've been home?: N/ASurvey - RecognitionIs there anything you would like to share about your recent hospitalization, or anyone you would like to recognize?: NoDo you have any suggestions for improvement?: NoDo you have any other questions or concerns at this time?: NoFuture Appointments: Future Appointments Provider Department Dept Phone 01/11/2023 2:00 PM Ross Gunter MD [facility] [phone] 82453-2Ewigitgoa encounter GbqeXF7941-37-58H36:27:33Telephone encounter NoteTXT1.2.840.730696.1.13.104.2.7 .2.449592|[id number] for patient wrfg69786-7OwbrJB663519285Tsvjuio A Gaudet RNUTMB[address]TXTX[address] 08CQNVCCTYJQLTOTWUZFSXUU5284-90-50 T12:27:331.2.840.583596.1.72.3.15| 1.2.840.191879.1.13.104.2.7.2.7278 [id number] 2022-11-06 7071-90-83W48:38:29Formatting of Bette johnson RN [facility] 13:38:29 this note might be different from the original.Problem: PainGoal: Control of pain at or below patient's documented comfort goalOutcome: Adequate for discharge Problem: Discharge PlanningGoal: Adequate for dischargeOutcome: Adequate for dischargeGoal: Effective communicationOutcome: Adequate for discharge Problem: Falls, Risk ofGoal: Absence of fallsOutcome: Adequate for discharge Problem: Skin integrity Impaired (Risk or Actual)Goal: Prevention of new skin breakdownOutcome: Adequate for discharge Problem: Venous Thromboembolism, (actual or risk of)Goal: Absence of venous thromboembolism (Risk)Outcome: Adequate for discharge 02877-3Yvyl of care hgayYS7739-87-33W01:38:32Plan of care noteTXT1.2.840.749775.1.13.104.2.7 .2.184731|[id number] for patient rafr89442-3YmklHH636293191Wcbeunqu Rosales RN[address]TXTX[address] 82KNUPXDIUMLKUQXPHMEMMNF1165-82-36 T13:38:321.2.840.979693.1.72.3.15| 1.2.840.958921.1.13.104.2.7.2.7278 [id number] 2022-11-06 4682-06-05Y33:13:58Formatting of Anabela Melton RN [facility] 02:13:58 this note might be different from the original.Problem: PainGoal: Control of pain at or below patient's documented comfort goalOutcome: Progressing as expected Problem: Discharge PlanningGoal: Adequate for dischargeOutcome: Progressing as expectedGoal: Effective communicationOutcome: Progressing as expected Problem: Falls, Risk ofGoal: Absence of fallsOutcome: Progressing as expected Problem: Skin integrity Impaired (Risk or Actual)Goal: Prevention of new skin breakdownOutcome: Progressing as expected Problem: Venous Thromboembolism, (actual or risk of)Goal: Absence of venous thromboembolism (Risk)Outcome: Progressing as expected 68632-0Wzjp of care gwqzNN9090-97-72R50:14:01Plan of care noteTXT1.2.840.776890.1.13.104.2.7 .2.638323|[id number] for patient mktg52543-7XmqwHK030725983Koyht M. Kurian RNUT[address] StreetTXTX[address] 56QLSHQQGRXTOUVMKTOUXROB0217-09-16 T02:14:011.2.840.590983.1.72.3.15| 1.2.840.117708.1.13.104.2.7.2.7278 [id number] 2022-11-05 2100-18-61N78:04:29Formatting of Mela Mei RN [facility] 16:04:29 this note might be different from the original.Problem: PainGoal: Control of pain at or below patient's documented comfort goalOutcome: Progressing as expected Problem: Discharge PlanningGoal: Adequate for dischargeOutcome: Progressing as expectedGoal: Effective communicationOutcome: Progressing as expected Problem: Falls, Risk ofGoal: Absence of fallsOutcome: Progressing as expected Problem: Skin integrity Impaired (Risk or Actual)Goal: Prevention of new skin breakdownOutcome: Progressing as expected Problem: Venous Thromboembolism, (actual or risk of)Goal: Absence of venous thromboembolism (Risk)Outcome: Progressing as expected 49844-6Uudb of care pmqsRM7597-17-77C78:04:34Plan of care noteTXT1.2.840.664382.1.13.104.2.7 .2.713401|[id number] for patient reov04408-7WakcEQ722844427Thnpcug Roye RN[address]TXTX[address] 70ZJXVXWVLWXBSSKCVCCDHUT3188-97-49 T16:04:341.2.840.938504.1.72.3.15| 1.2.840.523689.1.13.104.2.7.2.7278 [id number] 2022-11-05 5963-51-99S35:47:51Formatting of [facility] 04:47:51 this note might be different from the original.Problem: PainGoal: Control of pain at or below patient's documented comfort goalOutcome: Progressing as expected Problem: Discharge PlanningGoal: Adequate for dischargeOutcome: Progressing as expectedGoal: Effective communicationOutcome: Progressing as expected Problem: Falls, Risk ofGoal: Absence of fallsOutcome: Progressing as expected Problem: Skin integrity Impaired (Risk or Actual)Goal: Prevention of new skin breakdownOutcome: Progressing as expected Problem: Venous Thromboembolism, (actual or risk of)Goal: Absence of venous thromboembolism (Risk)Outcome: Progressing as expected 78659-2Yfax of care kyjmPB6170-33-74U55:47:56Plan of care noteTXT1.2.840.109244.1.13.104.2.7 .2.577587|[id number] for patient qrba45090-2AznrOORJXDENCA[address]TXTX[address] 88NYLRVUDCPPDUSQCEGEVJMZ1393-13-07 T04:47:561.2.840.459331.1.72.3.15| 1.2.840.834523.1.13.104.2.7.2.7278 [id number] 2022-11-04 9223-26-77O97:38:56Formatting of Marce valiente RN [facility] 18:38:56 this note might be different from the original.Report given to JEAN Azevedo 06749-4Pedobihli department NngzMJ9647-04-23A29:39:31[facility] department NoteTXT1.2.840.971111.1.13.104.2.7 .2.835424|[id number] for patient mgck91445-9UiqjBU177067359Pqrtrs M Herrera RN[address]TXTX[address] 56ROLTYXFBRARCQHZXDDHFWG5797-15-63 T18:39:311.2.840.336535.1.72.3.15| 1.2.840.202135.1.13.104.2.7.2.7278 [id number] 2022-11-04 7524-61-55S21:32:12Formatting of [facility] 12:32:12 this note might be different from the original.Pt arrived via private car with c/o abd pain, vomiting and diarrhea x2 days. Last vomited about 1 hour pta 21745-2Studirqts department Triage sydlVX6421-21-42R28:34:33[facility] Triage noteTXT1.2.840.066958.1.13.104.2.7 .2.867329|[id number] for patient xscr86715-0Oggqwytxn department Note[address]TXTX[address] 49DLHVFUZBKXEOYPUOPGIAMF9934-37-78 T12:34:331.2.840.810527.1.72.3.15| 1.2.840.619241.1.13.104.2.7.2.7278 [id number] 2022-11-04 3560-69-06F44:24:00[facility] 12:24:00 Order(s): EKG-12 Lead ONCEPre-Procedure Diagnose(s): Abdominal pain, unspecified abdominal locationPost-Procedure Diagnose(s): Abdominal pain, unspecified abdominal location [facility] Emergency Department NotePatient Name: Jimmie Yoon of : 1970 52 year old maleTreatment Room: AR3/VD2Nywugbi Record Number: [id number] Care Physician: Lucy ShafferPatient Escorted by: Family [5]Mode of Arrival: Personal means [1]EMS Treatment Prior to ED 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 male with h/o laryngeal cancer(trach.), chronic pancreatitis, now with mid abdominal pain with n/v x 2 days. Past Medical History/Immunizations:Past Medical History: Diagnosis Date Aphonia 04/13/2019 Asthma Coronavirus infection 2019 Hx of laryngectomy 07/14/2018 Hyponatremia Leukocytosis Neck infection 08/11/2018 Other chronic pancreatitis Squamous cell cancer of larynx Thyroid disease Tracheostomy in place Tetanus received in last 5 years: UnknownChildhood immunizations: Up-to-date Allergies:Allergies Allergen Reactions Bactrim [Sulfamethoxazole-Trimethoprim] Rash Iodine And Iodide Containing Products Nausea Only Penicillins Hives and Rash Other reaction(s): Unknown - See comments Ampicillin Unknown - See comments Levofloxacin Hives and Rash Past Social History:Tobacco Use Former Smokeless Tobacco: Never used smokeless tobacco. Comments: .5 PPD X >30 yrs Alcohol Use Not Currently. Comments: 1/5th of liqour per week Drug Use Yes; Marijuana. Past Surgical History:Past Surgical History: Procedure Laterality Date ENDOSCOPIC RETROGRADE CHOLANGIOPANCRETOGRAPHY N/A 01/05/2021 Surgeon: Sadiq Napier MD; Location: [facility] Location ESOPHAGEAL DILATATION N/A 02/11/2020 Surgeon: Fan Espinal MD; Location: [facility] OR Location ESOPHAGOGASTRODUODENOSCOPY N/A 01/20/2020 Surgeon: Fan Espinal MD; Location: [facility] OR Location ESOPHAGOGASTRODUODENOSCOPY N/A 02/01/2020 Surgeon: Sadiq Napier MD; Location: Endoscopy () OR Location ESOPHAGOGASTRODUODENOSCOPY N/A 02/11/2020 Surgeon: Fan Espinal MD; Location: [facility] OR Location GASTROSTOMY INTRAOPERATIVE CHOLANGIOGRAM N/A 02/15/2020 Surgeon: Cindy Rodriguez MD; Location: [facility] OR Location LAPAROSCOPIC CHOLECYSTECTOMY N/A 02/15/2020 Surgeon: Cindy Rodriguez MD; Location: [facility] OR Location TRACHEOSTOMY UPPER ULTRASOUND (SHX) N/A 01/29/2020 Surgeon: Brodie Jansen MD; Location: Endoscopy ([facility]) OR Location Review of Systems: Review of Systems Constitutional: Positive for fatigue. Negative for chills and fever. HENT: Negative. Eyes: Negative. Respiratory: Negative. Breasts: Negative. Cardiovascular: Negative. Gastrointestinal: Positive for abdominal pain, diarrhea, nausea and vomiting. Negative for abdominal distention, blood in stool and constipation. Musculoskeletal: Negative. Skin: Negative. Neurological: Negative. Psychiatric/Behavioral: Negative. Endocrine: Endocrine negativePhysical Exam: ED Triage Vitals [11/04/22 1233] Weight 80.3 kg (177 lb) Actual or estimated Estimated by patient/family report Height BP (!) 143/92 Pulse 84 Resp 18 Temp 37.2 ?C (99 ?F) Temp source Oral SpO2 92 % Measured on Room air Physical ExamVitals and nursing note reviewed. Constitutional: General: He is not in acute distress. Appearance: Normal appearance. He is not ill-appearing, toxic-appearing or diaphoretic. HENT: Head: Normocephalic. Mouth/Throat: Mouth: Mucous membranes are dry. Eyes: Pupils: Pupils are equal, round, and reactive to light. Cardiovascular: Rate and Rhythm: Normal rate. Pulses: Normal pulses. Pulmonary: Effort: No respiratory distress. Abdominal: Palpations: Abdomen is soft. There is no mass. Tenderness: There is abdominal tenderness. There is no right CVA tenderness, left CVA tenderness, guarding or rebound. Hernia: No hernia is present. Musculoskeletal: General: Normal range of motion. Skin: General: Skin is warm. Capillary Refill: Capillary refill takes less than 2 seconds. Neurological: General: No focal deficit present. Mental Status: He is alert and oriented to person, place, and time. Psychiatric: Mood and Affect: Mood normal. Behavior: Behavior normal. Radiology:CT ABDOMEN PELVIS WO CONTRAST Final Result CT abdomen and pelvis without contrast History: Abdominal pain, acute, nonlocalized Iodine allergy, h/o Pancreatitis Technique: CT dose reduction by ALARA principles. Multiple contiguous axial CT images of the abdomen and pelvis were obtained without contrast. Sagittal and coronal reformatted images were constructed. Prior: None Findings: The lung bases are clear. The visualized heart is normal in size. Coronary atherosclerosis is present. The liver is normal in size. No intrahepatic biliary dilatation. Cholecystectomy clips are present. The pancreatic head appears ill-defined with some inflammatory stranding that tracks into Morison's pouch. Findings may represent pancreatitis. No inflammatory changes of the body or tail of the pancreas. There is mild chronic perinephric stranding/scarring of the kidneys. No hydronephrosis bilaterally. There is a 1 mm punctate nonobstructing stone of the right kidney. There is mild calcified plaque of the aorta. The aorta demonstrates no [...] demonstrates inflammatory wall thickening which may be secondary to duodenitis or as a result of adjacent pancreatitis. There is minimal fluid within small bowel loops in the lower abdomen without significant dilatation and no wall thickening. Findings are nonspecific. Enteritis cannot be excluded. There is mild diverticulosis of the colon without diverticulitis. The appendix not visualized. There is no inflammatory changes in the region of the cecum. The included bones are intact. IMPRESSION Impression: Inflammatory thickening seen at the second portion of the duodenum with ill-defined pancreatic head. Findings may represent duodenitis and/or pancreatitis. Correlation with laboratory values recommended. Endoscopy may be warranted. There is minimal fluid within small bowel loops in the lower abdomen without significant dilatation and no wall thickening. Findings are nonspecific. Enteritis cannot be excluded. There is mild diverticulosis of the colon without diverticulitis. There is a 1 mm punctate nonobstructing stone of the left kidney. There is mild diffuse prominence of the wall of the bladder which may be secondary to incomplete distention or cystitis. Mild hypertrophy of the bladder wall as result of partial bladder outlet obstruction from a mildly enlarged prostate gland also cannot be excluded. HS:Y [facility] 0901 Ordering physician: CAPRICE HODGE Lab Results:Lab Results CBC WITH DIFF - Abnormal Result [...] MAT x10^3(ANC) 9.01 (*) 1.99 - 6.95 10*3/uL IMM GRAN x10^3 0.08 (*) 0.00 - 0.06 10*3/uL LYMPH x10^3 0.87 (*) 1.09 - 3.23 10*3/uL MONO x10^3 0.83 0.36 - 1.02 10*3/uL EOS x10^3 0.03 (*) 0.06 - 0.53 10*3/uL BASO x10^3 0.04 0.01 - 0.09 10*3/uL COMP. METABOLIC PANEL (61704) - Abnormal NA 135 135 - 145 [...] U/L TROPONIN I ETHANOL HEPATIC FUNCTION PANEL (29079) (ALB,T.PRO,BILI T,BU/BC,ALT,AST,ALK PHOS) EKG:If EKG completed, see Procedure Note. Orders and Treatments:Orders Placed This Encounter Procedures CT ABDOMEN PELVIS WO CONTRAST CBC WITH DIFF COMP. METABOLIC PANEL (38049) URINALYSIS LIPASE TROPONIN I ETHANOL HEPATIC FUNCTION PANEL (81996) (ALB,T.PRO,BILI T,BU/BC,ALT,AST,ALK PHOS) LIPID PANEL (53438)(TOTAL CHOLESTEROL, TRIGLYCERIDES, HDL) Orders Placed This Encounter Medications ondansetron (ZOFRAN (PF)) injection 8 mg NaCl 0.9% (NS) bolus infusion 1,000 mL morpHINE (4 mg/mL) injection 6 mg NaCl 0.9% (NS) bolus infusion 1,000 mL famotidine (PEPCID (PF)) injection 20 mg morpHINE (4 mg/mL) injection 4 mg enoxaparin (LOVENOX) injection 40 mg lactated ringers IV infusion 1,000 mL HYDROcodone-acetaminophen (NORCO 5) 5-325 mg tablet 1 tablet FENTanyl PF (SUBLIMAZE (PF)) injection 50 mcg ondansetron (ZOFRAN (PF)) injection 4 mg First Provider Eval:ED Events None No notes of EC Admission Criteria type on file.ED COURSEDiagnosis/Impression as of 11/04/22 1708 Abdominal pain, unspecified abdominal location Procedures: EKG-12 Lead ONCEDate/Time: 11/04/2022 1:44 PMPerformed by: Caprice Hodge MDAuthorized by: Caprice Hodge MD Previous ECG: Previous ECG: UnavailableInterpretation: Interpretation: normal Rate: ECG rate: 74 ECG rate assessment: normal Rhythm: Rhythm: sinus rhythm Ectopy: Ectopy: none QRS: QRS axis: Normal QRS intervals: NormalComments: Normal EKGMDM:Medical Decision MakingAmount and/or Complexity of Data ReviewedLabs: ordered.Radiology: ordered.RiskPrescription drug management.Parenteral controlled substances.A) Acute on Chronic Pancreatitis, DehydrationDisposition/Condition: Admit, IVF's, Pain control ,serial exam and labs. ED Disposition ED Disposition Admit - Observation Condition -- Comment Is (or was) this a planned re-admission?: No Treatment Team: [facility] [[id number]] Is this patient COVID positive or a patient under investigation (PUI)?: No Discharge Medications:Patient's Medications START taking these medications No medications on file CONTINUE taking these medications which have NOT CHANGED ALBUTEROL 90 MCG/ACTUATION INHALER Inhale 2 Puffs every 6 (six) hours as needed for Wheezing or Shortness of Breath. ARIPIPRAZOLE 5 MG TABLET Take 1 tablet by mouth in the morning. ATORVASTATIN 80 MG TABLET Take 80 mg by mouth at bedtime. BUPROPION HCL, SMOKING DETER, 150 MG TB12 Take 1 tablet by [...] ESCITALOPRAM OXALATE 20 MG TABLET TAKE ONE TABLET BY MOUTH EVERY MORNING GABAPENTIN 800 MG TABLET TAKE ONE TABLET BY MOUTH EVERY MORNING , ONE TABLET AT NOON AND 1 TABLET IN THE EVENING KETOCONAZOLE 2 % SHAMPOO Apply to area(s) once daily as needed for Itching. LEVOTHYROXINE 150 MCG TABLET Take 1 tablet by mouth every morning. OMEPRAZOLE 40 MG CAPSULE Take one capsule by mouth twice daily for one week then one capsule by mouth daily START taking Modified Medications as Prescribed No medications on file STOP taking these medications No medications on file Follow-up:Electronically signed by: Caprice Hodge MD11/04/221707 71440-6Vbgljrmbz Emergency department RdtrNM6247-40-77Z52:08:51Physician Emergency department NoteTXT1.2.840.708692.1.13.104.2.7 .2.766704|[id number] for patient zpds93833-4Kzpxirbwl department NoteLNUT[address] InzkQdhdzpuwuQgljeezorSRNV46641415 87FOOPCFZCPGBXOMSKPNOESN7375-49-80 T17:08:511.2.840.442960.1.72.3.15| 1.2.840.636803.1.13.104.2.7.2.7278 [id number] 2022-10-31 7304-84-92E70:39:37Formatting of [facility] 10:39:37 this note is different from the original.Images from the original note were not included.Please review and sign if appropriate. Name from pharmacy: ESCITALOPRAM 20 MG TABLET Will file in chart as: ESCITALOPRAM OXALATE 20 mg tablet Sig: TAKE ONE TABLET BY MOUTH EVERY MORNING Disp: 90 tablet Refills: 1 (Pharmacy requested: Not specified) Start: 10/31/2022 Class: eRX For: Alcohol-induced acute pancreatitis, unspecified complication status; Anxiety and depression Last ordered: 11 months ago (11/27/2021) by YANELY Culver Last refill: 03/06/2022 Rx #: [id number] Psychiatry: Antidepressants Failed 10/31/2022 10:14 AM Protocol Details Manual Review: Verify no changes in dose in the last 3 months Valid encounter within last 12 months To be filled at: [facility] [id number] [place] [address] [address] [facility] [address] Recent VisitsDate Type Provider Dept 10/11/22 Office Visit Ross Gunter MD [facility] 09/28/22 Office Visit Ross Gunter MD [facility] 08/28/22 Office Visit Michelle Justice FNP [facility] 02/02/22 Office Visit Chetna Barnard FNP [facility] 11/27/21 Office Visit Michelle Justice FNP [facility] 08/09/21 Office Visit Lucy Shaffer MD [facility] 07/11/21 Office Visit Lucy Shaffer MD [facility] Showing recent visits within past 540 days with a meds authorizing provider and meeting all other requirementsFuture AppointmentsDate Type Provider Dept 01/11/23 Appointment Ross Gunter MD [facility] Showing future appointments within next 150 days with a meds authorizing provider and meeting all other requirements 97568-9Gogygwxoh encounter ZhymYL2512-31-19Q46:40:56Telephone encounter NoteTXT1.2.840.976374.1.13.104.2.7 .2.002137|[id number] for patient sauw26727-8PfxsKAWZLPCQVJ[address]TXTX[address] 48YDQGZIVJQFNAUGQPWTKDDO2896-06-20 T10:40:561.2.840.727785.1.72.3.15| 1.2.840.373926.1.13.104.2.7.2.7278 [id number] 2022-10-24 5073-04-78M50:17:05Formatting of [facility] 08:17:05 this note might be different from the original.Contacted patient to let him know of medication change. 93029-2Fuvklmilz encounter JcaxLU9522-81-32N92:17:36Telephone encounter NoteTXT1.2.840.547986.1.13.104.2.7 .2.828299|[id number] for patient [address] 10SUIKGAVAQLHNTJOUNVZCNW2166-70-49 T08:17:361.2.840.560807.1.72.3.15| 1.2.840.959505.1.13.104.2.7.2.7278 [id number] 2022-10-23 0908-11-31I33:28:41Formatting of [facility] 21:28:41 this note might be different from the original.I switched it. Best,Dr. Shayectronically signed by Ross Gunter MD at 10/23/2022 9:31 PM AJM47150-4Zhigutuzy encounter GnpnOW0376-92-74J12:31:40Telephone encounter NoteTXT1.2.840.172358.1.13.104.2.7 .2.008080|[id number] for patient [address] 37OYKLCWGPLKXJIALQHYJBTZ1235-45-70 T21:31:401.2.840.037204.1.72.3.15| 1.2.840.295528.1.13.104.2.7.2.7278 [id number] 2022-10-23 0368-42-36O86:30:10Formatting of Jocelyn Power [facility] 16:30:10 this note might be different from the original.Confirmed per patient/fiance, he is not taking Chantix and does prefer to begin Wellbutrin. 34620-4Aixkbmolm encounter VdchVS5129-41-67M67:32:24Telephone encounter NoteTXT1.2.840.166182.1.13.104.2.7 .2.799981|[id number] for patient jwtc127678966Wzsmj Flores [id number] 75VXDRGRUJSCIHIAQDBTQEIH0458-63-53 T16:32:241.2.840.463404.1.72.3.15| 1.2.840.255427.1.13.104.2.7.2.7278 [id number] 2022-10-23 5134-13-29X42:52:55Formatting of Kasey Soto [facility] 12:52:55 this note might be different from the original.Pt shelia is calling back had miss call 93381-6Anmfjvwef encounter VfycRO3072-99-86T13:53:19Telephone encounter NoteTXT1.2.840.982103.1.13.104.2.7 .2.715013|[id number] for patient tulj071051200Qxuif[address]TX[place] 47NFGSOFFJLHMVHSTCYZDOKG9901-67-22 T12:53:191.2.840.704261.1.72.3.15| 1.2.840.168240.1.13.104.2.7.2.7278 [id number] 2022-10-22 1695-79-44F75:25:57Formatting of [facility] 17:25:57 this note might be different from the original.LVM to callback on 10/22/2022 90924-6Vjffpkelz encounter ZxvlWJ1059-17-82S21:26:19Telephone encounter NoteTXT1.2.840.943640.1.13.104.2.7 .2.461111|[id number] for patient [address] 44LXVTLOJWLWCYRASRMQVXPO8678-19-94 T17:26:191.2.840.281920.1.72.3.15| 1.2.840.242791.1.13.104.2.7.2.7278 [id number] 2022-10-22 6148-64-50A93:51:52Formatting of [facility] 16:51:52 this note might be different from the original.We will need to verify with the patient before switching. Please confirm with him and get back to me. Best,Dr. Shayectronically signed by Ross Gunter MD at 10/22/2022 4:52 PM ALF68783-7Sleczzikp encounter RoklUF1165-77-70M90:52:36Telephone encounter NoteTXT1.2.840.293014.1.13.104.2.7 .2.721712|[id number] for patient [address]Gal[place]TXTX[address] 99BFYKBMQTLKJJZEYQKICIFK8353-77-74 T16:52:361.2.840.076543.1.72.3.15| 1.2.840.210806.1.13.104.2.7.2.7278 [id number] 2022-10-22 0257-47-16K87:10:27Formatting of [facility] 12:10:27 this note might be different from the original.Please review and advise.CRICKET 10/11/22:Current every day smokerCigarette nicotine dependence with nicotine-induced disorderChronic, uncontrolledTrial of chantix and gumRTC 3 months- varenicline (CHANTIX STARTING MONTH BOX) 0.5 mg (11)- 1 mg (42) tablet; Take one 0.5mg tab by mouth once daily for 3 days, then one 0.5mg tab twice daily for 4 days, then one 1mg tab twice daily.- varenicline (CHANTIX) 1 mg tablet; Take 1 tablet by mouth in the morning and 1 tablet in the evening 93011-8Uxdfhphxf encounter XnnlUR8078-08-50Y09:11:08Telephone encounter NoteTXT1.2.840.755932.1.13.104.2.7 .2.351660|[id number] for patient [address] 00KLTBQALKMWBYHMDADYMNYC7032-80-36 T12:11:081.2.840.560251.1.72.3.15| 1.2.840.797640.1.13.104.2.7.2.7278 [id number] 2022-10-22 9887-93-40V19:26:41Formatting of Piper Mathews [facility] 10:26:41 this note might be different from the original.Patient's fiance is calling requesting that the prescription for CHANTIX to be switched to Wellbutrin. She states he is concerned about the side effects. 48138-0Xanfsjjkv encounter NlzkRT2846-72-27B59:28:23Telephone encounter NoteTXT1.2.840.789259.1.13.104.2.7 .2.991821|[id number] for patient [id number] S [address] EeivZqccvthwsWqgxtftiwLKRW72463195 22RZXAZALOJHZQXYQDOKESSJ0703-85-57 T10:28:231.2.840.663503.1.72.3.15| 1.2.840.514062.1.13.104.2.7.2.7278 [id number] 2018-07-14 [id number]:10:33 [facility] 18:10:33 OPERATIVE/PROCEDURE REPORTJIMMIE PUGHFACILITY: [place] #: [id number] Room: [facility] #: [id number] : 1970DATE OF PROCEDURE: 07/14/2018SURGEON: SHIRA ResendizREOPERATIVE DIAGNOSIS: Dysfunctional larynx.POSTOPERATIVE DIAGNOSIS: Dysfunctional larynx.PROCEDURES PERFORMED:1. Total laryngectomy.2. Re-implantation of left superior parathyroid gland.MARKETING STRATEGY MANAGER: Ms. Jesenia Moser PA-C.INDICATIONS FOR THE PROCEDURE: The patient is a 58-qaof-rkntvvf with a history of laryngeal carcinoma, who underwentchemoradiation therapy, completed in 2018. Since completion ofhis chemoradiation therapy, he has had progressive fibrosis ofhis larynx. He was found to have progressive dyspnea as wellas progressive fibrosis of his larynx. The patient was takento the operating room where he underwent emergencytracheostomy. Given his trach dependence and dysfunctionallarynx, decision was made to perform total laryngectomy.PROCEDURE IN DETAIL: The patient was informed of his conditionas well as details of procedure including its risks, benefits,alternatives. The patient expressed good understanding of theprocedure and subsequently signed informed consent. He wasthen taken to the operating room, placed on the operating tablein supine position. He was induced using general anesthesia byAnesthesia Service and his tracheostomy tube was switched outfor a #7 wire reinforced endotracheal tube. He was prepped anddraped in usual sterile fashion. A time-out was performed withprocedure and site are verified. An Apron incision wasfashioned with 1 cm margins around the tracheal stoma.Incision was made using Bovie cautery. Subplatysmal flaps wereelevated superiorly above the level of the hyoid bone andinferiorly to the level of the clavicles.The investing layer of deep cervical fascia was incised alongthe anterior border of sternocleidomastoid muscle. Thisincision was carried down to the level of the great vessels.The omohyoid muscle was identified and subsequently ligatedlaterally. The sternohyoid and sternothyroid muscles weresubsequently ligated to the inferior aspects. This allowed foridentification of the thyroid gland. The right thyroid wassharply dissected off the anterior tracheal wall and reflectedlaterally. This allowed for preservation of the parathyroidglands. The superior thyroid pedicle was traced superiorly totake off the external carotid artery.The investing layer of deep cervical fascia at the inferiorborder of the submandibular gland was incised using Boviecautery. The posterior belly of digastric was identified.This allowed for identification of the hypoglossal nerve usingblunt dissection. Next, the contralateral SCM was releasedusing Bovie cautery. The great vessels were identified and theomohyoid muscle was ligated laterally. The sternohyoid andsternothyroid muscles were also ligated to the inferior extent. This allowed for complete exposure of the anterior trachealwall. The left thyroid lobe was sharply dissected off thetracheal wall. During this dissection, the left superiorparathyroid gland was identified and appeared to bedevascularized. After confirmation of frozen section, the leftsuperior parathyroid gland was minced and re-implanted into theleft SCM muscle. Next, the left posterior belly digastric wasidentified and the left hypoglossal nerve was identified usingblunt dissection. The suprahyoid musculature was then releasedoff the superior aspect of the hyoid bone. The greater hornsbilaterally were skeletonized with great care using sharpdissection.The constrictor muscles were sharply dissected off the thyroidcartilage bilaterally. Using a [place] elevator, the piriformsinus mucosa was bluntly dissected off the inner surface of thecartilage.An incision was made between rings two and three and beveledsuperiorly using curved Marquez scissors. Using sharp dissection,the common alliance party wall was dissected and the larynx wasdissected off the esophagus.Hugh was placed into the patient's oral cavity into thevallecula. Incision was made in the vallecula using a #15blade scalpel. The epiglottis was identified and subsequentlygrasped and retracted externally. This allowed for mucosalincisions of the pharynx to be made using Metzenbaum scissors.The piriform sinuses were spared and the pharynx cuts were madealong the lateral aspect of the larynx. The larynx wassubsequently excised whole and intact and submitted for frozensection pathology. Frozen section revealed no evidence ofmalignancy of the pharyngeal or tracheal margins. Meticuloushemostasis was obtained using bipolar cautery. The case wasthen handed over to Dr. Ivey for free flap re-construction.FINDINGS: Patient exhibited with a fibrotic larynx withsignificant fibrosis of the level of the glottic larynx.Frozen section pathology reveals no evidence of malignancy atthe pharyngeal or tracheal margins.ESTIMATED BLOOD LOSS: 20 mL.COMPLICATIONS: None.DISPOSITION: Case handed over to Dr. Ivey.INTRAVENOUS FLUIDS: Please see Anesthesia record.URINE OUTPUT: Please see Anesthesia record.CONDITION: Good.PEDRITO/MODLDD: 07/14/2018 14:40:05DT: 07/14/2018 18:10:33Job #: [id number] tkkcxx3202-08-25D25:10:723371-23-4 8T06:45:[id number] OU, WGMRCDJXQUZLKJDEDLPMISQ8286-63-86Y 06:46:40 2018-06-15 [id number]:01:31 [facility] 23:01:31 OPERATIVE/PROCEDURE REPORTJIMMIE PUGHFACILITY: [place] #: [id number] Room: [address] [place] [address] #: [id number] : 1970DATE OF PROCEDURE: 06/09/2018SURGEON: SHIRA ResendizREOPERATIVE DIAGNOSIS: Laryngeal mass.POSTOPERATIVE DIAGNOSES:1. Dysfunctional larynx.2. Left pneumothorax.PROCEDURES PERFORMED:1. Direct laryngoscopy and biopsy.2. Tracheostomy.3. 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 He underwent chemoradiation therapy completed in September2017. Since his definitive therapy, the patient has beenexperiencing progressive dyspnea as well as progressivedysphonia to the point where he is now aphonic. The patientwas referred to our service due to progressive dyspnea andinspiratory stridor. On evaluation in the clinic, the patientappeared to have an adequate airway. However, he exhibitedleft laryngeal paralysis as well as irregular tissue arisingfrom the left supraglottic larynx. The patient is offeredtotal laryngectomy. However, prior to total laryngectomy, heis now taken to the operating room for diagnostic directlaryngoscopy.PROCEDURE IN DETAIL: The patient was informed of his conditionas well as details of the procedure including its risks,benefits, and alternatives. Given the patient's marginalairway, the patient was well-informed of the possibility oftracheostomy. He expressed good understanding and agreed. Hewas then taken to the operating room and placed on theoperating table in supine position. The patient was theninduced by the Anesthesia Service using general anesthesia.The patient was able to be easily MAP ventilated. Afterconfirmation of MAP ventilation, decision was made by theAnesthesia Service to paralyze the patient. Directlaryngoscopy was performed using CMAC and adequatevisualization of the supraglottic and glottic airway wasobtained. A 6-0 endotracheal tube was attempted to be passed.However, there was significant difficulty. As a result toavoid significant trauma to the supraglottic larynx, thepatient was then bag masked again. Second attempt via directlaryngoscopy and passage of 5-0 endotracheal tube wasperformed. However, again the 5-0 endotracheal tube was unableto be passed. At this point, the patient was exhibitingincreased difficulty being mask ventilated. As a result,decision was made to perform tracheostomy. The patient wasprepped in sterile fashion. Using Bovie cautery, the patient'sprevious tracheostomy incision site was opened. Sharpdissection was performed using Bovie cautery down to theairway. A fibrous band was identified just along thesuperficial aspect of the trachea. Using a #15 blade scalpel,this fibrous band was entered. Using Marquez scissors, thetracheal incision was widened in all directions. There wassignificant fibrosis of this tracheal opening. It was verydifficult to use a trach insurance office supervisor to widen the opening. Withgood control of the airway, a 5-0 endotracheal tube was passedthrough the tracheostomy incision site. Adequate ventilationwas observed and tidal volume appeared to be adequate. Thepatient's oxygenation returned to 100%. Given the fact thatthe patient is exhibiting a significant cuff leak given thesize of the endotracheal tube, decision was made to up size toa 6-wire reinforced tube. After upsizing to a 6-wirereinforced tube after progressive dilation of the trachealopening, again tidal volumes did not appear to be adequate,although the patient was oxygenating well. Next, given thesevere fibrosis of the tracheal opening, the decision was madeto convert to a 4-0 Shiley tracheostomy tube given the rigidityof the tube. A 4-0 tracheostomy tube was easily passed intothe airway and the patient again was observed to be ventilatingwell. Despite maintaining good tidal volumes and having goodoxygen saturation, it was observed that the patient's peakairway pressures were starting to climb. Given the fact thatthe patient was now ventilating through a very small tube, thedecision was performed to up size to a #6 Shiley tracheostomytube. The patient was successfully upsized in confirmation ofthe #6 Shiley tracheostomy tube placement was made using aflexible bronchoscope and the eusebio was easily visualized.There appear to be no obstruction within the main stem bronchi. At this point, airway resistance continued to be high.Auscultation of the patient's lung however revealed absentbreath sounds on the left. The patient began exhibitingprogressive decline in his tidal volumes as well asoxygenation. As a result, decision was made to perform a leftchest tube. The patient's left chest was prepped in usualsterile fashion. An incision was made over the intercostalspace between ribs 4 and 5. Incision was made using Boviecautery and carried down to the level of the 5th rib. Incisionin intercostal musculature was made using Bovie cautery. ASarrot was then used to bluntly penetrate to the thoraciccavity. The Sarrot was used to spread open this incision. Atthis point, the patient had significant decline of his peakairway pressures and increase in his tidal volume. A 20-Frenchchest tube was then placed. At this point, Thoracic SurgeryService arrived and performed securing of the chest tube.After securing of the chest tube, direct laryngoscopy wasperformed. A Deniz laryngoscope was passed from thepatient's oral cavity towards larynx. Notably, given thepatient's mild retrognathia, visualization of the supraglotticlarynx was somewhat difficult. The patient exhibited severeedema of the supraglottic airway as well as severe fibrosis atthe level of the glottic airway. The glottic opening appear yoni only approximately about 4 mm in diameter. Multiplebiopsies of the left supraglottic larynx were obtained.Hemostasis obtained using Afrin-soaked pledgets. The patientwas subsequently turned back to anesthesia. He was thentransferred to surgical ICU in stable condition.DISPOSITION: ICU.CONDITION: Stable.FINDINGS: The patient exhibited significant narrowing at thelevel of the glottic airway. Intraoperatively, the patient wasdiscovered to have a left pneumothorax and a chest tube wasplaced.SPECIMENS: Left supraglottic larynx.ESTIMATED BLOOD LOSS: 20 mL.COMPLICATIONS: None.DEVICES USED: A #6 Shiley tracheostomy tube.PEDRITO/MODLDD: 06/15/2018 20:26:06DT: 06/15/2018 23:01:31Job #: [id number] 09:45:03
[2023-03-02 18:32] LABS: Absolute Lymphocytes (CBC) 0.9 K/uL (0.7-4.9); Lymphocytes % 11.1 % (15.3-44.8); MCV 90.5 fL (80-100); MPV 7.5 fL (7.6-11.3); Platelets 253 thou/uL (152-406); RBC Red Blood Cell Count 5.63 M/uL (4.33-5.43)
[2023-03-02] MEDS ORDERED: ONDANSETRON 4 MG/2 ML VIAL ONE (18:55)
[2023-03-02] MEDS ORDERED: NA CHLORIDE 0.9% 1,000 ML ONE (18:55)
[2023-03-02] MEDS ORDERED: MORPHINE 4 MG/ML SYR ONE (18:55)
[2023-03-02 19:28] LABS: Albumin 3.3 g/dL (3.4-5.0); Potassium 3.3 mEq/L (3.5-5.1); Protein, Total 7.2 g/dL (6.4-8.2)
--- NOTE | 2023-03-02 20:27 | ER ---
Nurse's Notes [facility] Name: Akin Pugh Age: 52 yrs Sex: Male : 1970 Arrival Date: 03/02/2023 Time: 17:41 Bed 4 Private MD: Diagnosis: Other chronic pancreatitis Presentation: 03/02 17:44 Chief complaint: EMS states: toned out to pt home for possible pancreatitis. N/V/D, ld1 upper abdominal pain. Coronavirus screen: At this time, the client does not indicate any symptoms associated with coronavirus-19. Ebola Screen: No symptoms or risks identified at this time. Initial Sepsis Screen: Does the patient meet any 2 criteria? No. Patient's initial sepsis screen is negative. Does the patient have a suspected source of infection? No. Patient's initial sepsis screen is negative. Risk Assessment: Do you want to hurt yourself or someone else? Patient reports no desire to harm self or others. Onset of symptoms was March 02, 2023. 17:44 Method Of Arrival: EMS: [facility] ld1 17:44 Acuity: PAO 3 ld1 Triage Assessment: 17:45 General: Appears in no apparent distress. uncomfortable, Behavior is calm, cooperative, ld1 appropriate for age. Pain: Complains of pain in abdomen. EENT: No signs and/or symptoms were reported regarding the EENT system. Neuro: Level of Consciousness is awake, alert, obeys commands, Oriented to person, place, time, situation. Cardiovascular: Capillary refill < 3 seconds Patient's skin is warm and dry. Respiratory: GI: Abdomen is flat, non-distended, Reports lower abdominal pain, upper abdominal pain. : No signs and/or symptoms were reported regarding the genitourinary system. Derm: No signs and/or symptoms reported regarding the dermatologic system. Musculoskeletal: No signs and/or symptoms reported regarding the musculoskeletal system. Historical: - Allergies: 17:45 Ampicillin; ld1 17:45 Iodinated Contrast Media - IV Dye; ld1 17:45 Iodine; ld1 17:45 Levaquin; ld1 - PMHx: 17:45 COPD; Asthma; Pancreatitis; THROAT CA; ld1 - PSHx: 17:45 Laryngectomy; tracheostomy (C); ld1 - Immunization history:: Adult Immunizations not up to date. - Social history:: Smoking status: Patient/guardian denies using tobacco, Patient/guardian denies using alcohol. Screenin:12 [facility] ED Fall Risk Assessment (Adult) Score/Fall Risk Level 0 - 2 = Low Risk. Abuse iw screen: Denies threats or abuse. Denies injuries from another. Nutritional screening: No deficits noted. Tuberculosis screening: No symptoms or risk factors identified. Assessment: 18:11 General: Appears in no apparent distress. Behavior is calm, cooperative. Pain: iw Complains of pain in abdomen. Neuro: Level of Consciousness is awake, alert, obeys commands, Oriented to person, place, time, situation, Moves all extremities. Full function. Respiratory: Respiratory effort is even, unlabored, Respiratory pattern is regular. GI: Bowel sounds present X 4 quads. Abd is soft X 4 quads Reports lower abdominal pain, upper abdominal pain, nausea. Derm: Skin is intact, is healthy with good turgor. 19:57 Reassessment: Patient appears in no apparent distress at this time. No changes from [facility] previously documented assessment. Patient and/or family updated on plan of care and expected duration. Pain level reassessed. Patient is alert, oriented x 3, equal unlabored respirations, skin warm/dry/pink. 20:57 Reassessment: Patient appears in no apparent distress at this time. No changes from 7 previously documented assessment. Patient and/or family updated on plan of care and expected duration. Pain level reassessed. Patient is alert, oriented x 3, equal unlabored respirations, skin warm/dry/pink. 21:47 General: respiratory notified for need of trach equipment for O2 administration . lg3 Vital Signs: 17:44 BP 139 / 89; Pulse 92; Resp 18; Temp 98.2(TE); Pulse Ox 95% on R/A; Weight 77.11 kg; ld1 Height 6 ft. 0 in. ; Pain 8/10; 21:41 BP 90 / 64; Pulse 60; Resp 16 S; Pulse Ox 86% on R/A; lg3 17:44 Body Mass Index 23.06 (77.11 kg, 182.88 cm) ld1 17:44 Pain Scale: Adult ld1 ED Course: 17:44 Patient arrived in ED. rg4 17:45 Triage completed. ld1 17:45 Wendy Wallace FNP-C is [facility]. kb 17:45 Ren Bruner MD is Attending Physician. kb 17:47 Arm band placed on right wrist. ld1 18:11 Initial lab(s) drawn, by me, sent to lab. Inserted saline lock: 22 gauge in left iw forearm, using aseptic technique. Blood collected. 18:59 Patient has correct armband on for positive identification. Provided Education on: . iw 20:26 Sara Vilchis MD is Hospitalizing Provider. kb 20:27 Michael Chaudhary is Hospitalizing Provider. kb 21:15 No provider procedures requiring assistance completed. Patient admitted, IV remains in lg3 place. No redness/swelling at site. 21:47 Oxygen administration via nasal cannula \T\ 3L/min Response to oxygen therapy: symptoms lg3 remain unchanged. 03/03 08:08 Srinath Pulido, RN is Primary Nurse. rs5 Administered Medications: 03/02 18:51 Drug: NS 0.9% IV 1000 ml IV at 1000 ml once Route: IV; Rate: 1000 ml; Site: left iw forearm; 20:56 Follow up: Response: No adverse reaction; IV Status: Completed infusion; IV Intake: jw7 1000ml 18:51 Drug: Ondansetron IVP 4 mg IVP once; over 2 minutes Route: IVP; Site: left forearm; iw 20:56 Follow up: Response: No adverse reaction jw7 18:53 Drug: morphine IVP or IV 4 mg IVP once over 4 mins Route: IVP; Infused Over: 4 mins; iw Site: left forearm; 20:56 Follow up: Response: No adverse reaction; Marked relief of symptoms jw7 21:43 Drug: NS 0.9% IV 1000 ml IV at 1000 ml once Route: IV; Rate: 1000 ml; Site: left lg3 forearm; 03/03 00:03 Follow up: IV Status: Completed infusion; IV Intake: 1000ml lg3 Medication: 03/02 18:12 VIS not applicable for this client. iw Intake: 20:56 IV: 1000ml; Total: 1000ml. jw7 03/03 00:03 IV: 1000ml; Total: 2000ml. lg3 Outcome: 03/02 20:26 Decision to Hospitalize by Provider. kb 21:16 Admitted to ER Hold. Please see [facility] for further documentation. lg3 21:16 Condition: stable 21:16 Instructed on the need for admit, 03/03 10:26 Patient left the ED. rs5 Signatures: Wendy Wallace, SPEECH LANGUAGE PATHOLOGIST TRAVEL-C SPEECH LANGUAGE PATHOLOGIST TRAVEL-Flor Farrar, RN RN Mavis Richardson rg4 Flavia Dorantes, RN RN lg3 Jesenia Falcon, RN RN ld1 Carla Enciso, RN RN jw7 Srinath Pulido RN RN rs5 Corrections: (The following items were deleted from the chart) 03/02 17:48 17:44 Chief complaint: EMS states: toned out to pt home for possible pancreatitis ld1 ld1 17:50 17:44 BP 154 / 96; Pulse 102bpm; Resp 18bpm; Pulse Ox 96% RA; Temp 98.2F Temporal; ld1 77.11 kg; Height 6 ft. 0 in.; BMI: 23.0; Pain 8/10, Adult; ld1
--- NOTE | 2023-03-02 20:27 | EDPHYS ---
Physician Documentation [facility] Name: Akin Pugh Age: 52 yrs Sex: Male : 1970 Arrival Date: 03/02/2023 Time: 17:41 Bed 4 Private MD: ALEJANDRA Physician Ren Bruner HPI: 03/02 20:26 This 52 yrs old Male presents to ER via EMS with complaints of Abdominal Pain. kb 20:26 Patient is a 52-year-old male with a history of pancreatitis who presents with upper kb abdominal pain, nausea and vomiting that started yesterday. Denies diarrhea or fever. States it feels like his chronic pancreatitis.. Historical: - Allergies: 17:45 Ampicillin; ld1 17:45 Iodinated Contrast Media - IV Dye; ld1 17:45 Iodine; ld1 17:45 Levaquin; ld1 - PMHx: 17:45 COPD; Asthma; Pancreatitis; THROAT CA; ld1 - PSHx: 17:45 Laryngectomy; tracheostomy (C); ld1 - Immunization history:: Adult Immunizations not up to date. - Social history:: Smoking status: Patient/guardian denies using tobacco, Patient/guardian denies using alcohol. ROS: 20:16 Constitutional: Negative for fever, chills, and weight loss, kb 20:16 Abdomen/GI: Positive for abdominal pain, nausea and vomiting, Negative for diarrhea, 20:16 All other systems are negative, Exam: 20:16 Constitutional: This is a well developed, well nourished patient who is awake, alert, kb and in no acute distress. Head/Face: Normocephalic, atraumatic. ENT: Moist Mucous membranes Cardiovascular: Regular rate Respiratory: Respirations even and unlabored. No increased work of breathing. Talking in full sentences Skin: Warm, dry with normal turgor. Normal color. MS/ Extremity: Pulses equal, no cyanosis. Neurovascular intact. Full, normal range of motion. Neuro: Awake and alert, GCS 15, oriented to person, place, time, and situation. Moves all extremities. Normal gait. 20:16 Abdomen/GI: Inspection: abdomen appears normal, Bowel sounds: normal, Palpation: soft, in all quadrants, moderate abdominal tenderness, in the right upper quadrant and left upper quadrant, Vital Signs: 17:44 BP 139 / 89; Pulse 92; Resp 18; Temp 98.2(TE); Pulse Ox 95% on R/A; Weight 77.11 kg; ld1 Height 6 ft. 0 in. ; Pain 8/10; 21:41 BP 90 / 64; Pulse 60; Resp 16 S; Pulse Ox 86% on R/A; lg3 17:44 Body Mass Index 23.06 (77.11 kg, 182.88 cm) ld1 17:44 Pain Scale: Adult ld1 MDM: 17:45 Patient medically screened. kb 20:19 Data reviewed: vital signs, nurses notes. kb 20:24 Differential diagnosis: gastritis, gastroesophageal reflux disease, non-specific abd kb pain, pancreatitis. Consideration of Admission/Observation Patient was admitted/placed on observation. Escalation of care including admission/observation considered. Management of patient was discussed with the following: Hospitalist: ZULAY Poe accepts pt for admission under Dr Chaudhary. Historians other than the Patient: EMS: [facility]. Counseling: I had a detailed discussion with the patient and/or guardian regarding the historical points, exam findings, and any diagnostic results supporting the discharge/admit diagnosis, lab results, the need for further work-up and treatment in the hospital. 03/02 17:46 Order name: CBC with Diff; Complete Time: 18:34 kb 03/02 17:46 Order name: CMP; Complete Time: 19:42 kb 03/02 17:46 Order name: Lipase; Complete Time: 19:42 kb 03/02 21:12 Order name: Basic Metabolic Panel EDTN 03/02 21:12 Order name: Basic Metabolic Panel EDTN 03/02 21:12 Order name: CBC with Automated Diff EDMS 03/02 21:12 Order name: CBC with Automated Diff EDTN 03/02 21:12 Order name: Lipase EDTN 03/02 21:12 Order name: Lipase EDTN 03/02 21:12 Order name: Liver (Hepatic) Function EDTN 03/02 21:12 Order name: Liver (Hepatic) Function EDTN 03/03 04:56 Order name: Thyroid Stimulating Hormone EDTN 03/02 17:46 Order name: IV Saline Lock; Complete Time: 18:08 kb 03/02 17:46 Order name: Labs collected and sent; Complete Time: 18:08 kb Administered Medications: 18:51 Drug: NS 0.9% IV 1000 ml IV at 1000 ml once Route: IV; Rate: 1000 ml; Site: left iw forearm; 20:56 Follow up: Response: No adverse reaction; IV Status: Completed infusion; IV Intake: jw7 1000ml 18:51 Drug: Ondansetron IVP 4 mg IVP once; over 2 minutes Route: IVP; Site: left forearm; iw 20:56 Follow up: Response: No adverse reaction jw7 18:53 Drug: morphine IVP or IV 4 mg IVP once over 4 mins Route: IVP; Infused Over: 4 mins; iw Site: left forearm; 20:56 Follow up: Response: No adverse reaction; Marked relief of symptoms jw7 21:43 Drug: NS 0.9% IV 1000 ml IV at 1000 ml once Route: IV; Rate: 1000 ml; Site: left lg3 forearm; 03/03 00:03 Follow up: IV Status: Completed infusion; IV Intake: 1000ml lg3 Disposition Summary: 03/02/23 20:26 Hospitalization Ordered Notes: Hospitalization Status: Observation kb Condition: Stable kb Problem: new kb Symptoms: are unchanged kb Bed/Room Type: Standard kb Provider: Michael Chaudhary(03/02/23 20:27) kb Location: Telemetry/MedSurg (observation)(03/03/23 07:01) eb Room Assignment: 429(03/03/23 07:01) eb Diagnosis - Other chronic pancreatitis kb Forms: - Medication Reconciliation Form kb - SBAR form kb - Leadership Thank You Letter kb Signatures: Dispatcher [employer] Wendy Kinney FNP-C FNP-Bibi Bassett RN Flor Villagran RN RN iw Botello, Elizabeth eb Gibson, Lacie, RN RN lg3 Jesenia Falcon RN RN mag1 Carla Enciso RN jw7 Corrections: (The following items were deleted from the chart) 03/02 20:27 20:24 Management of patient was discussed with the following: Hospitalist: ZULAY Poe accepts pt for admission under Dr Vilchis. 20:27 20:26 Sara Vilchis 21:51 20:26 Telemetry/MedSurg (observation) [facility] 21:51 20:26 venkata 03/03 07:01 03/02 21:51 [facility] ER HOLD kl eb 03/03 07:01 03/02 21:51 ERHOLD- kl eb
[2023-03-02] MEDS ORDERED: ACETAMINOPHEN 500 MG TAB PO PRN (21:04)
[2023-03-02] MEDS: NA CHLORIDE 0.9% 1,000 ML IV SCH (21:55)
[2023-03-02 22:08] VITALS: BMI 23.0
[2023-03-02] MEDS: MORPHINE 4 MG/ML SYR IV PRN (23:19)
[2023-03-02] MEDS ORDERED: MORPHINE 2 MG/ML SYR ONE (23:30)
--- NOTE | 2023-03-03 01:17 | P.HP ---
Certification for Inpatient With expected LOS: >2 Midnights Patient will require the following post-hospital care: None Practitioner: I am a practitioner with admitting privileges, knowledge of patient current condition, hospital course, and medical plan of care. Services: Services provided to patient in accordance with Admission requirements found in Title 42 Section 412.3 of the Code of Federal Regulations Patient History Date of Service: 03/03/23 Primary Care Provider: Dr. Vilchis Reason for admission: Abdominal pain, N/V History of Present Illness: Mr. Pugh is a 52 yo male with a history of pancreatitis, COPD, laryngeal cancer with laryngectomy/tracheostomy, depression, surgical hypothyroidism who presented to the ED for abdominal pain, nausea, and vomiting x 3 days. Pt unable to hold down fluids. Given Morphine and NS IV in ED. Pt describes pain as similar to his chronic pancreatitis. Last admission less than one month ago. He has been asked to see GI outpatient. Allergies levofloxacin [From Levaquin] Allergy (Severe, Verified 02/05/23 01:24) Itching/Hives/Rash ampicillin Allergy (Verified 02/05/23 01:24) Itching/Hives/Rash iodine Allergy (Verified 02/05/23 01:24) Hives/Rash Home medications list reviewed: Yes Home Medications: Escitalopram [Lexapro*] 20 mg PO DAILY #30 tab 02/16/21 Gabapentin [Neurontin*] 800 mg PO TID 12/11/22 Lipase/Protease/Amylase [Chucho Falcon 12,000 Units Capsule] 1 tab PO TID 12/11/22 Levothyroxine [Synthroid*] 150 mcg PO [id number] 12/31/22 Pantoprazole Sodium [Protonix] 40 mg PO BID 30 Days #60 tab 01/02/23 Oxycodone HCl 10 mg PO Q6HP PRN 02/05/23 - Past Medical/Surgical History Diabetic: No -: Asthma -: Depression -: Throat cancer status post complete laryngectomy/reconstruction 06/2018 -: Recurrent postop infection -: Chronic pain -: Former tobacco use -: Surgical hypothyroidism -: neuropathy -: Pancreatitis/duodenitis -: Tracheostomy -: Appendectomy -: Complete laryngectomy with reconstruction -: knee surgery bilateral knees -: Thyroidectomy Psychosocial/ Personal History: Patient is . He has 3 children. - Family History Father -: Heart disease, Diabetes Notes: agent orange: immobile Mother -: Cancer Notes: breast ca - Social History Smoking Status: Former smoker Alcohol use: No CD- Drugs: No Caffeine use: Yes Place of Residence: Home Review of Systems General: Unremarkable Eyes: Unremarkable ENT: Unremarkable Respiratory: Unremarkable Cardiovascular: Unremarkable Gastrointestinal: Nausea, Vomiting, Abdominal Pain Genitourinary: Unremarkable Musculoskeletal: Unremarkable Integumentary: Unremarkable Neurological: Unremarkable Lymphatics: Unremarkable Physical Examination - Vital Signs Temperature: 98.4 F Blood Pressure: 114/66 Pulse: 53 Respirations: 17 Pulse Ox (%): 99 - Physical Exam General: Alert, Oriented x3 HEENT: Atraumatic, Normocephalic, PERRLA Neck: Other (tracheostomy) Respiratory: Clear to auscultation bilaterally Cardiovascular: No edema, Normal pulses Capillary refill: <2 Seconds Gastrointestinal: Tenderness (epigastric and bilateral upper abdomen) Musculoskeletal: No clubbing, No swelling Integumentary: No rashes Neurological: Normal affect Lymphatics: No axilla or inguinal lymphadenopathy External genitalia: Deferred Rectal: Deferred - Studies Laboratory Data (last 24 hrs) 03/02/23 03/02/23 18:10 18:10 WBC 8.50 Hgb 17.6 Hct 51.0 H Plt Count 253 Sodium 137 Potassium 3.3 L BUN 5 L Creatinine 0.77 Glucose 99 Total Bilirubin 1.0 AST 12 L ALT 18 Alkaline Phosphatase 119 H Lipase 235 H Assessment and Plan - Problems (Diagnosis) (1) Abdominal pain Current Visit: No Status: Acute Plan: NPO, Morphine, protonix, serial labs Qualifiers: Abdominal location: upper abdomen, unspecified Qualified Code(s): R10.10 - Upper abdominal pain, unspecified (2) Acute pancreatitis Current Visit: No Status: Acute Plan: NPO, IVF, Protonix 40mg IV BID, trend electrolytes and lipase Qualifiers: Pancreatitis type: unspecified pancreatitis type Acute pancreatitis complication: no infection or necrosis Qualified Code(s): K85.90 - Acute pancreatitis without necrosis or infection, unspecified (3) COPD (chronic obstructive pulmonary disease) Onset Date: 10/14/17 Current Visit: No Status: Chronic Plan: Albuterol nebs and oxygen prn via trach collar, SpO2 monitoring Qualifiers: Discharge Plan: Home Plan to discharge in: 72 Hours - Advance Directives Does patient have a Living Will: No Does patient have a Durable POA for Healthcare: No - Code Status/Comfort Care Code Status Assessed: Yes (Full code) Critical Care: No Time Spent Managing Pts Care (In Minutes): 60
[2023-03-03] MEDS ORDERED: SODIUM CHLORIDE 0.9% 10ML INJ IV PRN (01:52)
[2023-03-03 04:17] LABS: Absolute Lymphocytes (CBC) 1.2 K/uL (0.7-4.9); Hematocrit 47.1 % (39.6-49.0); MCV 92.3 fL (80-100); MPV 7.6 fL (7.6-11.3); Platelets 217 thou/uL (152-406); RBC Red Blood Cell Count 5.11 M/uL (4.33-5.43)
[2023-03-03] MEDS ORDERED: NA CHLORIDE 0.9% 1,000 ML ONE (04:26)
[2023-03-03] MEDS: NA CHLORIDE 0.9% 1,000 ML IV SCH ×3 (04:32→22:30)
[2023-03-03 04:46] LABS: Albumin 2.7 g/dL (3.4-5.0); Bilirubin Direct 0.3 mg/dL (0-0.2); Bilirubin Indirect, Calculated 0.8 mg/dL (0.2-0.8); Bilirubin Total 1.1 mg/dL (0.2-1.0); Potassium 4.2 mEq/L (3.5-5.1)
[2023-03-03] MEDS: MORPHINE 4 MG/ML SYR IV PRN ×4 (04:47→20:14)
[2023-03-03] MEDS ORDERED: MORPHINE 4 MG/ML SYR ONE ×2 (04:59→09:59)
[2023-03-03] MEDS ORDERED: ALBUTEROL 2.5 MG/3 ML NEB SOL ONE (07:38)
[2023-03-03] MEDS: ALBUTEROL 2.5 MG/3 ML NEB SOL NEB SCH ×3 (07:42→21:12)
[2023-03-03] MEDS: PANTOPRAZOLE 40 MG INJ IVP SCH ×2 (09:00→20:13)
[2023-03-03] MEDS ORDERED: ONDANSETRON 4 MG/2 ML VIAL ONE (09:59)
[2023-03-03] MEDS ORDERED: PANTOPRAZOLE 40 MG INJ ONE (10:00)
[2023-03-03] MEDS: ONDANSETRON 4 MG/2 ML VIAL IV PRN ×3 (10:05→20:14)
--- NOTE | 2023-03-03 17:07 | P.PN ---
Date of Service: 03/03/23 Patient seen and examined. He states his abdominal pain is better. Lipase level normalized. Start full liquid diet and monitor. Patient with a history of chronic pain. Resume home medications.
[2023-03-03] MEDS: OXYCODONE HCL 5 MG TAB PO PRN (17:58)
[2023-03-03] MEDS: LIPASE/PROTEASE/AMYLASE CAP PO SCH (20:12)
[2023-03-03] MEDS: PANTOPRAZOLE 40MG TABLET PO SCH (20:12)
[2023-03-03] MEDS: GABAPENTIN 400 MG CAP PO SCH (20:12)
[2023-03-04] MEDS: MORPHINE 4 MG/ML SYR IV PRN ×5 (00:10→21:24)
[2023-03-04] MEDS: ALBUTEROL 2.5 MG/3 ML NEB SOL NEB SCH ×4 (01:00→19:00)
[2023-03-04] MEDS: LEVOTHYROXINE SOD 0.075 MG TAB PO SCH (04:40)
[2023-03-04 06:31] LABS: Potassium 3.5 mEq/L (3.5-5.1)
[2023-03-04] MEDS: NA CHLORIDE 0.9% 1,000 ML IV SCH ×3 (06:43→21:27)
[2023-03-04] MEDS: ESCITALOPRAM 20 MG TAB PO SCH (08:34)
[2023-03-04] MEDS: LIPASE/PROTEASE/AMYLASE CAP PO SCH ×3 (08:34→21:23)
[2023-03-04] MEDS: PANTOPRAZOLE 40MG TABLET PO SCH ×2 (08:34→21:23)
[2023-03-04] MEDS: GABAPENTIN 400 MG CAP PO SCH ×3 (08:34→21:23)
[2023-03-04] MEDS: ONDANSETRON 4 MG/2 ML VIAL IV PRN (09:43)
[2023-03-04] MEDS: OXYCODONE HCL 5 MG TAB PO PRN (13:17)
--- NOTE | 2023-03-04 17:41 | P.PN ---
Subjective Date of Service: 03/04/23 Primary Care Provider: Dr. Vilchis Chief Complaint: Abdominal pain, N/V Patient is now tolerating liquid diet. He vomited during breakfast and lunch. He is complaining of persistent abdominal pain and diarrhea. Physical Examination - Vital Signs Temperature: 98.3 F Blood Pressure: 128/82 Pulse: 71 Respirations: 18 Pulse Ox (%): 94 Assessment And Plan - Current Problems (Diagnosis) (1) Acute on chronic pancreatitis Current Visit: Yes Status: Acute (2) Abdominal pain Current Visit: No Status: Acute Qualifiers: Abdominal location: upper abdomen, unspecified Qualified Code(s): R10.10 - Upper abdominal pain, unspecified (3) COPD (chronic obstructive pulmonary disease) Onset Date: 10/14/17 Current Visit: No Status: Chronic Qualifiers: (4) History of laryngeal cancer Current Visit: No Status: Chronic - Plan Physical Exam General: Alert, Oriented x3 Neck: Tracheostomy stoma Respiratory: Clear to auscultation bilaterally Cardiovascular: No edema, Normal pulses Gastrointestinal: Epigastric tenderness, normal bowel sounds, no organomegaly. Musculoskeletal: No clubbing, No swelling Integumentary: No rashes Neurological: Normal affect, no focal motor deficit. Plan: Abdominal pain/acute on chronic pancreatitis Nausea and vomiting persist patient is now tolerating liquid diet. Continue supportive measures IV fluids Analgesics. Continue protonix. Clear liquid diet as tolerated Continue Creon. COPD Without acute exacerbation Continue home bronchodilators Albuterol prn Disposition: Home in 1 to 2 days.
[2023-03-05] MEDS: ALBUTEROL 2.5 MG/3 ML NEB SOL NEB SCH ×2 (01:00→07:00)
[2023-03-05] MEDS: MORPHINE 4 MG/ML SYR IV PRN ×5 (02:03→20:53)
[2023-03-05] MEDS: LEVOTHYROXINE SOD 0.075 MG TAB PO SCH (06:28)
[2023-03-05] MEDS: NA CHLORIDE 0.9% 1,000 ML IV SCH ×3 (06:29→22:10)
[2023-03-05 07:19] LABS: Absolute Lymphocytes (CBC) 0.8 K/uL (0.7-4.9); Lymphocytes % 11.9 % (15.3-44.8); MCV 91.4 fL (80-100); MPV 7.8 fL (7.6-11.3); Platelets 170 thou/uL (152-406)
[2023-03-05 07:40] LABS: Albumin 2.5 g/dL (3.4-5.0); Bilirubin Direct 0.3 mg/dL (0-0.2); Bilirubin Indirect, Calculated 0.5 mg/dL (0.2-0.8); Bilirubin Total 0.8 mg/dL (0.2-1.0); Potassium 3.4 mEq/L (3.5-5.1); Protein, Total 5.6 g/dL (6.4-8.2)
--- NOTE | 2023-03-05 08:34 | P.PN ---
Date of Service: 03/05/23 Subjective: unable to tolerate liquids yesterday; nausea/vomiting after lunch abdominal pain ~6/10 today, +diarrhea reports hasn't been able to see GI/pancreatic specialist yet no acute events overnight denies tremors afebrile ROS: 10 point ROS as noted above, otherwise negative Physical Exam: GEN: Alert, oriented, NAD HEENT: Normal conjunctiva, sclera anicteric,+trach stoma CV: Regular rate and rhythm, no edema Pulm: Nonlabored respirations on room air ABD: Soft, mild RUQ/epigastric tenderness, nondistended Neuro: Normal speech, normal affect Problem List: Acute on chronic pancreatitis Abdominal Pain Hypothyroidism h/o laryngeal cancer s/p laryngectomy with reconstruction COPD, chronic Depression Tobacco use Hypothyroidism Acute on chronic pancreatitis Abdominal Pain Nausea and vomiting continues; unable to tolerate liquids yesterday 12/4 diet as tolerated Continue supportive measures continue IV fluids PRN Analgesics Continue protonix BID Continue Creon Hypothyroidism. TSH low will decrease synthroid dose reports was increased a few months ago h/o laryngeal cancer s/p laryngectomy with reconstruction continue supportive care. COPD, chronic. Continue home medications Depression. Continue home medications VTE: SCD Code: Full Dispo: Home Pending further improvement
[2023-03-05] MEDS: LIPASE/PROTEASE/AMYLASE CAP PO SCH ×3 (09:27→20:53)
[2023-03-05] MEDS: GABAPENTIN 400 MG CAP PO SCH ×3 (09:28→20:53)
[2023-03-05] MEDS: ESCITALOPRAM 20 MG TAB PO SCH (09:28)
[2023-03-05] MEDS: PANTOPRAZOLE 40MG TABLET PO SCH ×2 (09:28→20:53)
[2023-03-05] MEDS: OXYCODONE HCL 5 MG TAB PO PRN (09:31)
[2023-03-06] MEDS: LEVOTHYROXINE SOD 0.075 MG TAB PO SCH (06:00)
[2023-03-06] MEDS: NA CHLORIDE 0.9% 1,000 ML IV SCH (06:21)
[2023-03-06] MEDS: MORPHINE 4 MG/ML SYR IV PRN (06:28)
[2023-03-06] MEDS: ALBUTEROL 2.5 MG/3 ML NEB SOL NEB SCH (07:00)
[2023-03-06 07:38] LABS: Albumin 2.5 g/dL (3.4-5.0); Bilirubin Total 0.8 mg/dL (0.2-1.0); Potassium 3.6 mEq/L (3.5-5.1); Protein, Total 5.6 g/dL (6.4-8.2)
--- NOTE | 2023-03-06 07:57 | P.DS ---
Admission Date: 03/02/23 Discharge Date: 03/06/23 Primary Care Provider: Dr. Vilchis Disposition: ROUTINE DISCHARGE Discharge Condition: GOOD Reason for Admission: Abdominal pain, N/V Brief History of Present Illness: 52 yo M, PMH: pancreatitis, COPD, laryngeal cancer with laryngectomy/tracheostomy, depression, surgical hypothyroidism Patient presented to the ED for abdominal pain, nausea, and vomiting x 3 days. Pt unable to hold down fluids. Given Morphine and NS IV in ED. Pt describes pain as similar to his chronic pancreatitis. Last admission less than one month ago. He has been asked to see GI outpatient. Hospital Course: Problem List: Acute on chronic pancreatitis Abdominal Pain Hypothyroidism h/o laryngeal cancer s/p laryngectomy with reconstruction COPD, chronic Depression Tobacco use Patient presented with abdominal pain, nausea/vomiting ongoing for 3 days. Patient was given IV fluids, continued on his protonix, creon and had improvement of his symptoms. He was noted to have a flare of his chronic pancreatitis. Diet was slowly advanced. Patient was feeling better, abdominal pain improved, tolerating low fat diet and was deemed stable for discharge home. Discussed with patient the need to follow with Pancreas center / pancreatic specialist as recommended by GI for further work up and discuss if other options for treatment. Also consider genetic testing for pancreatitis. TSH this hospitalization was noted to be 0.011 (normal limit 0.358-3.740). Advised to lower synthroid dose for now (on 150mcg, and will decrease to 125mcg). Follow up with PCP and recheck levels in a few months for further adjustments. Medications: Synthroid decreased to .125 mcg daily Follow up: PCP 3-5 days Tertiary center / pancreatic specialist as previously discussed Physical Exam: GEN: Alert, oriented, NAD HEENT: Normal conjunctiva, sclera anicteric,+trach stoma CV: Regular rate and rhythm, no edema Pulm: Nonlabored respirations on room air ABD: Soft, mild RUQ/epigastric tenderness, nondistended Neuro: Normal speech, normal affect Vital Signs/Physical Exam: Temp Pulse Resp BP Pulse Ox 97.1 F 57 18 139/89 96 03/06/23 04:00 03/06/23 04:00 03/06/23 04:00 03/06/23 04:00 03/06/23 04:00 Laboratory Data at Discharge: WBC 6.80 thou/uL (4.3-10.9) 03/05/23 07:01 Hgb 14.4 g/dL (13.6-17.9) 03/05/23 07:01 Hct 43.0 % (39.6-49.0) 03/05/23 07:01 Plt Count 170 thou/uL (152-406) 03/05/23 07:01 Sodium 142 mEq/L (136-145) 03/06/23 07:03 Potassium 3.6 mEq/L (3.5-5.1) 03/06/23 07:03 BUN 4 mg/dL (7-18) L 03/06/23 07:03 Creatinine 0.61 mg/dL (0.70-1.30) L 03/06/23 07:03 Glucose 110 mg/dL (74-106) H 03/06/23 07:03 Magnesium 2.0 mg/dL (1.6-2.4) 03/06/23 07:03 Total Bilirubin 0.8 mg/dL (0.2-1.0) 03/06/23 07:03 AST 12 U/L (15-37) L 03/06/23 07:03 ALT 26 U/L (16-61) 03/06/23 07:03 Alkaline Phosphatase 149 U/L (45-117) H 03/06/23 07:03 Lipase 87 U/L (13-75) H 03/06/23 07:03 Home Medications: Escitalopram [Lexapro*] 20 mg PO DAILY #30 tab 02/16/21 Gabapentin [Neurontin*] 800 mg PO TID 12/11/22 Lipase/Protease/Amylase [Creon Dr 12,000 Units Capsule] 1 tab PO TID 12/11/22 Pantoprazole Sodium [Protonix] 40 mg PO BID 30 Days #60 tab 01/02/23 Oxycodone HCl 10 mg PO Q6HP PRN 02/05/23 Levothyroxine [Synthroid*] 0.125 mg PO [id number] 30 Days #30 tab 03/06/23 New Medications: Levothyroxine [Synthroid*] 0.125 mg PO [id number] 30 Days #30 tab Physician Discharge Instructions: Patient presented with abdominal pain, nausea/vomiting ongoing for 3 days. Patient was given IV fluids, continued on his protonix, creon and had improvement of his symptoms. He was noted to have a flare of his chronic pancreatitis. Diet was slowly advanced. Patient was feeling better, abdominal pain improved, tolerating low fat diet and was deemed stable for discharge home. Discussed with patient the need to follow with Pancreas center / pancreatic specialist as recommended by GI for further work up and discuss if other options for treatment. Also consider genetic testing for pancreatitis. TSH this hospitalization was noted to be 0.011 (normal limit 0.358-3.740). Advised to lower synthroid dose for now (on 150mcg, and will decrease to 125mcg). Follow up with PCP and recheck levels in a few months for further adjustments. Medications: Synthroid decreased to .125 mcg daily Follow up: PCP 3-5 days Tertiary center / pancreatic specialist as previously discussed Time spent managing pt's care (in minutes): 45
[2023-03-06] MEDS: LIPASE/PROTEASE/AMYLASE CAP PO SCH (08:35)
[2023-03-06] MEDS: ESCITALOPRAM 20 MG TAB PO SCH (08:36)
[2023-03-06] MEDS: PANTOPRAZOLE 40MG TABLET PO SCH (08:36)
[2023-03-06] MEDS: GABAPENTIN 400 MG CAP PO SCH (08:36)
[2023-03-06] MEDS: OXYCODONE HCL 5 MG TAB PO PRN (08:36)
[2023-03-06 09:05] VITALS: O2SAT 96
[2023-03-06 09:22] VITALS: BP 147/66; TEMP 97.6
[2023-03-07] MEDS ORDERED: LEVOTHYROXINE SOD 0.125 MG TAB PO SCH (06:00)
== END 2023-03-06 11:23 | disposition home or self-care (01) | DRG 440 ==
LOC: ER 17:41 → ERHOLD 21:22 → 4TH 03-03 07:54
PROVIDERS: ADMIT Internal Medicine; ATTEND Hospitalist
DX: K85.90 Acute pancreatitis without necrosis or infection, unspecified (principal); K86.1 Other chronic pancreatitis; F32.A Depression, unspecified; J44.9 Chronic obstructive pulmonary disease, unspecified; Z88.8 Allergy status to other drugs, medicaments and biological substances; Z88.1 Allergy status to other antibiotic agents; Z93.0 Tracheostomy status; Z90.49 Acquired absence of other specified parts of digestive tract; Z85.21 Personal history of malignant neoplasm of larynx; Z79.890 Hormone replacement therapy; Z91.041 Radiographic dye allergy status; Z91.048 Other nonmedicinal substance allergy status; Z79.899 Other long term (current) drug therapy; Z87.891 Personal history of nicotine dependence
CPT/HCPCS: 36415; 80048; 80053; 80076; 83690; 83735; 84443; 85025; 94640; 94760; 96361; 96374; 96375; 99285; C9113; J2270; J2405; J7030; J7613

== ENCOUNTER 2023-03-13 17:51 | Inpatient (IN) | payer OTHER ==
[2023-03-13] MEDS ORDERED: ONDANSETRON 4 MG/2 ML VIAL ONE ×2 (18:15→20:53)
[2023-03-13] MEDS ORDERED: NA CHLORIDE 0.9% 1,000 ML ONE (18:15)
[2023-03-13] MEDS ORDERED: MORPHINE 4 MG/ML SYR ONE ×2 (18:16→20:52)
[2023-03-13 18:42] LABS: Absolute Lymphocytes (CBC) 1.2 K/uL (0.7-4.9); Lymphocytes % 12.4 % (15.3-44.8); MPV 7.9 fL (7.6-11.3); Platelets 248 thou/uL (152-406); RBC Red Blood Cell Count 5.44 M/uL (4.33-5.43)
[2023-03-13 20:19] LABS: Albumin 3.1 g/dL (3.4-5.0); Bilirubin Total 0.7 mg/dL (0.2-1.0); Potassium 3.6 mEq/L (3.5-5.1); Protein, Total 6.2 g/dL (6.4-8.2)
--- NOTE | 2023-03-13 20:51 | ER ---
Nurse's Notes [facility] Name: Akin Pugh Age: 52 yrs Sex: Male : 1970 Arrival Date: 03/13/2023 Time: 17:51 Bed 18 Private MD: Diagnosis: Other chronic pancreatitis Presentation: 03/13 18:08 Chief complaint: Chief complaint: EMS states: Pancreatitis. Reports abdominal pain that cp4 started this morning. Has had episodes prior. Coronavirus screen: Vaccine status: Patient reports being unvaccinated. Client denies travel out of the [place] in the last 14 days. Ebola Screen: Patient negative for fever greater than or equal to 101.5 degrees Fahrenheit, and additional compatible Ebola Virus Disease symptoms Patient denies exposure to infectious person. Patient denies travel to an Ebola-affected area in the 21 days before illness onset. No symptoms or risks identified at this time. Initial Sepsis Screen: Does the patient meet any 2 criteria? No. Patient's initial sepsis screen is negative. Does the patient have a suspected source of infection? No. Patient's initial sepsis screen is negative. Risk Assessment: Do you want to hurt yourself or someone else? Patient reports no desire to harm self or others. Onset of symptoms was March 13, 2023. 18:08 Method Of Arrival: EMS: [facility] cp4 18:08 Acuity: PAO 3 cp4 Triage Assessment: 18:10 General: Appears in no apparent distress. Behavior is calm, cooperative, appropriate cp4 for age. Pain: Complains of pain in abdomen. Historical: - Allergies: 18:10 Ampicillin; cp4 18:10 Iodinated Contrast Media - IV Dye; cp4 18:10 Iodine; cp4 18:10 Levaquin; cp4 - PMHx: 18:10 Asthma; COPD; Pancreatitis; THROAT CA; cp4 - PSHx: 18:10 Laryngectomy; tracheostomy; cp4 - Immunization history:: Adult Immunizations up to date. - Social history:: Smoking status: Patient reports the use of cigarette tobacco products, smokes one pack cigarettes per day. Screenin:11 [facility] ED Fall Risk Assessment (Adult) History of falling in the last 3 months, cp4 including since admission No falls in past 3 months (0 pts) Confusion or Disorientation No (0 pts) Intoxicated or Sedated No (0 pts) Impaired Gait No (0 pts) Mobility Assist Device Used No (0 pt) Altered Elimination No (0 pt) Score/Fall Risk Level 0 - 2 = Low Risk Oriented to surroundings, Maintained a safe environment, Educated pt \T\ family on fall prevention, incl call for assistance when getting out of bed, Assessed \T\ reinforced patient's understanding of fall precautions, Hourly rounding (assess needs \T\ fall precautionary measures) done. Abuse screen: Denies threats or abuse. Nutritional screening: No deficits noted. Tuberculosis screening: No symptoms or risk factors identified. Assessment: 18:11 Reassessment: No changes from previously documented assessment. cp4 19:26 General: Appears in no apparent distress. uncomfortable, Behavior is calm, cooperative. jw7 Pain: Complains of pain in abdomen Pain currently is 5 out of 10 on a pain scale. Quality of pain is described as throbbing, Is continuous. Neuro: Barrett Agitation-Sedation Scale (RASS): 0 - Alert and Calm Level of Consciousness is awake, alert, obeys commands, Oriented to person, place, time, situation. Cardiovascular: Capillary refill < 3 seconds Clubbing of nail beds is absent JVD is absent Patient's skin is warm and dry. Respiratory: Airway is patent Trachea midline Respiratory effort is even, unlabored, Respiratory pattern is regular, symmetrical. GI: Abdomen is flat, non-distended, Reports upper abdominal pain. : No deficits noted. No signs and/or symptoms were reported regarding the genitourinary system. EENT: No deficits noted. No signs and/or symptoms were reported regarding the EENT system. Derm: Skin is intact, is healthy with good turgor, Skin is dry, Skin is normal, Skin temperature is warm. Musculoskeletal: Circulation, motion, and sensation intact. Range of motion: intact in all extremities. 20:30 Reassessment: Patient appears in no apparent distress at this time. No changes from jw7 previously documented assessment. Patient and/or family updated on plan of care and expected duration. Pain level reassessed. Patient is alert, oriented x 3, equal unlabored respirations, skin warm/dry/pink. Vital Signs: 18:08 BP 159 / 90; Pulse 72; Resp 18; Temp 98.1; Pulse Ox 96% ; Pain 10/10; cp4 19:15 BP 139 / 81; Pulse 64; Resp 18 S; Pulse Ox 97% on R/A; jw7 20:00 BP 125 / 86; Pulse 66; Resp 17 S; Pulse Ox 96% on R/A; jw7 21:00 BP 112 / 71; Pulse 66; Resp 16 S; Pulse Ox 95% on R/A; jw7 22:55 Weight 78.47 kg; Height 5 ft. 11 in. ; jw7 22:55 Body Mass Index 24.13 (78.47 kg, 180.34 cm) jw7 18:08 Pain Scale: Adult cp4 ED Course: 17:52 Patient arrived in ED. ds4 17:52 Wendy Wallace FNP-C is [facility]. kb 17:52 Ren Bruner MD is Attending Physician. kb 17:58 Xiomy Jacques is Primary Nurse. cp4 18:03 Inserted saline lock: 22 gauge in right forearm, using aseptic technique. Blood ds4 collected. 18:10 Triage completed. cp4 18:10 Arm band placed on right wrist. Patient placed in an exam room, on a stretcher. cp4 18:11 No provider procedures requiring assistance completed. cp4 18:11 Bed in low position. Call light in reach. Side rails up X 1. cp4 20:50 Shawn Cooley MD is Hospitalizing Provider. kb 21:00 Provided Education on: need for admit. [facility] 03/14 02:33 Patient admitted, IV remains in place. jw7 Administered Medications: 03/13 18:18 Drug: Ondansetron IVP 4 mg IVP once; over 2 minutes Route: IVP; Site: right antecubital;4 03/14 02:31 Follow up: Response: No adverse reaction 7 03/13 18:19 Drug: NS 0.9% IV 1000 ml IV at 1000 ml once Route: IV; Rate: 1000 ml; Site: right cp4 antecubital; 03/14 02:30 Follow up: Response: No adverse reaction; IV Status: Completed infusion; IV Intake: jw7 1000ml 03/13 18:19 Drug: morphine IVP or IV 4 mg IVP once over 4 mins Route: IVP; Infused Over: 4 mins; cp4 Site: right antecubital; 03/14 02:31 Follow up: Response: No adverse reaction; No change in condition jw7 03/13 20:40 Drug: morphine IVP or IV 4 mg IVP once over 4 mins Route: IVP; Infused Over: 4 mins; jw7 Site: right antecubital; 03/14 02:31 Follow up: Response: No adverse reaction; Marked relief of symptoms jw7 03/13 20:40 Drug: Ondansetron IVP 4 mg IVP once; over 2 minutes Route: IVP; Site: right antecubital;jw7 03/14 02:31 Follow up: Response: No adverse reaction jw7 Medication: 03/13 18:11 VIS not applicable for this client. cp4 Intake: 03/14 02:30 IV: 1000ml; Total: 1000ml. jw7 Outcome: 03/13 20:50 Decision to Hospitalize by Provider. kb 03/14 02:33 Admitted to ER Hold. Please see [facility] for further documentation. jw7 Condition: stable Instructed on the need for admit, Demonstrated understanding of instructions, 04:51 Patient left the ED. jw7 Signatures: Wendy Wallace, YANELY-C [employer] CLERK-CkRudy Mancilla ds4 Carla Enciso, RN RN jw7 Xiomy Jacques cp4
--- NOTE | 2023-03-13 20:51 | EDPHYS ---
Physician Documentation [facility] Name: Akin Pugh Age: 52 yrs Sex: Male : 1970 Arrival Date: 03/13/2023 Time: 17:51 Bed 18 Private MD: ED Physician Ren Bruner HPI: 03/13 21:09 This 52 yrs old Male presents to ER via EMS with complaints of abd pain. kb 21:09 Patient is a 52-year-old male who presents for upper abd pain, n/v and fever that kb started this morning. States it feels exactly like previous episodes of pancreatitis. Historical: - Allergies: 18:10 Ampicillin; cp4 18:10 Iodinated Contrast Media - IV Dye; cp4 18:10 Iodine; cp4 18:10 Levaquin; cp4 - PMHx: 18:10 Asthma; COPD; Pancreatitis; THROAT CA; cp4 - PSHx: 18:10 Laryngectomy; tracheostomy; cp4 - Immunization history:: Adult Immunizations up to date. - Social history:: Smoking status: Patient reports the use of cigarette tobacco products, smokes one pack cigarettes per day. ROS: 21:11 Respiratory: Negative for shortness of breath, cough, wheezing, and pleuritic chest kb pain, 21:11 Constitutional: Positive for fever, 21:11 Abdomen/GI: Positive for abdominal pain, nausea and vomiting, 21:11 All other systems are negative, Exam: 21:11 Constitutional: This is a well developed, well nourished patient who is awake, alert, kb and in no acute distress. Head/Face: Normocephalic, atraumatic. ENT: Moist Mucous membranes Cardiovascular: Regular rate Respiratory: Respirations even and unlabored. No increased work of breathing. Talking in full sentences Skin: Warm, dry with normal turgor. Normal color. MS/ Extremity: Pulses equal, no cyanosis. Neurovascular intact. Full, normal range of motion. Neuro: Awake and alert, GCS 15, oriented to person, place, time, and situation. Moves all extremities. Normal gait. 21:11 Abdomen/GI: Inspection: abdomen appears normal, Bowel sounds: normal, Palpation: soft, in all quadrants, mild abdominal tenderness, in the right upper quadrant and left upper quadrant, Vital Signs: 18:08 BP 159 / 90; Pulse 72; Resp 18; Temp 98.1; Pulse Ox 96% ; Pain 10/10; cp4 19:15 BP 139 / 81; Pulse 64; Resp 18 S; Pulse Ox 97% on R/A; jw7 20:00 BP 125 / 86; Pulse 66; Resp 17 S; Pulse Ox 96% on R/A; jw7 21:00 BP 112 / 71; Pulse 66; Resp 16 S; Pulse Ox 95% on R/A; jw7 22:55 Weight 78.47 kg; Height 5 ft. 11 in. ; jw7 22:55 Body Mass Index 24.13 (78.47 kg, 180.34 cm) 7 18:08 Pain Scale: Adult cp4 MDM: 17:53 Patient medically screened. kb 21:11 Differential diagnosis: gastroesophageal reflux disease, non-specific abd pain, kb pancreatitis. Data reviewed: vital signs, nurses notes. Consideration of Admission/Observation Patient was admitted/placed on observation. Escalation of care including admission/observation considered. Management of patient was discussed with the following: Hospitalist: Dr Cooley accepts pt for admission. Historians other than the Patient: EMS: [facility]. Counseling: I had a detailed discussion with the patient and/or guardian regarding the historical points, exam findings, and any diagnostic results supporting the discharge/admit diagnosis, lab results, the need for further work-up and treatment in the hospital. 03/13 17:53 Order name: CBC with Diff; Complete Time: 18:47 kb 03/13 17:53 Order name: CMP; Complete Time: 20:24 kb 03/13 17:53 Order name: Lipase; Complete Time: 20:24 kb 03/13 17:53 Order name: IV Saline Lock; Complete Time: 18:03 kb 03/13 17:53 Order name: Labs collected and sent; Complete Time: 18:03 kb 03/13 18:46 Order name: Labs - recollect needed: green top; Complete Time: 19:04 bd Administered Medications: 18:18 Drug: Ondansetron IVP 4 mg IVP once; over 2 minutes Route: IVP; Site: right antecubital;4 03/14 02:31 Follow up: Response: No adverse reaction [facility] 03/13 18:19 Drug: NS 0.9% IV 1000 ml IV at 1000 ml once Route: IV; Rate: 1000 ml; Site: right 4 antecubital; 03/14 02:30 Follow up: Response: No adverse reaction; IV Status: Completed infusion; IV Intake: jw7 1000ml 03/13 18:19 Drug: morphine IVP or IV 4 mg IVP once over 4 mins Route: IVP; Infused Over: 4 mins; cp4 Site: right antecubital; 03/14 02:31 Follow up: Response: No adverse reaction; No change in condition 7 03/13 20:40 Drug: morphine IVP or IV 4 mg IVP once over 4 mins Route: IVP; Infused Over: 4 mins; jw7 Site: right antecubital; 03/14 02:31 Follow up: Response: No adverse reaction; Marked relief of symptoms [facility] 03/13 20:40 Drug: Ondansetron IVP 4 mg IVP once; over 2 minutes Route: IVP; Site: right antecubital;[facility] 03/14 02:31 Follow up: Response: No adverse reaction jw7 Disposition Summary: 03/13/23 20:50 Hospitalization Ordered Notes: Hospitalization Status: Observation kb Provider: Shawn Cooley Location: Telemetry/MedSurg (observation) kb Condition: Stable kb Problem: an acute exacerbation kb Symptoms: are unchanged kb Bed/Room Type: Standard Room Assignment: 405(03/14/23 02:58) jr Diagnosis - Other chronic pancreatitis kb Forms: - Medication Reconciliation Form kb - SBAR form kb - Leadership Thank You Letter kb Signatures: Dispatcher [employer] Wendy Kinney, EDUARDO [place]-Sherry Marie Jodi, RN RN jw7 Potter, Christina cp4 Reddick, Jess jr12 Corrections: (The following items were deleted from the chart) 02:58 03/13 20:50 kb jr12
[2023-03-13] MEDS ORDERED: ACETAMINOPHEN 325 MG TABLET PO PRN (21:07)
[2023-03-13] MEDS ORDERED: ONDANSETRON 4 MG/2 ML VIAL IV PRN (21:07)
--- NOTE | 2023-03-13 21:07 | P.HP ---
Certification for Inpatient Patient admitted to: Observation With expected LOS: <2 Midnights Practitioner: I am a practitioner with admitting privileges, knowledge of patient current condition, hospital course, and medical plan of care. Services: Services provided to patient in accordance with Admission requirements found in Title 42 Section 412.3 of the Code of Federal Regulations Patient History Date of Service: 03/14/23 Reason for admission: Abdominal pain, pancreatitis. History of Present Illness: 52-year-old male patient with medical history significant for chronic panc reatitis for which she is on enzyme replacement, hypothyroidism, history of throat cancer status post laryngectomy and reconstruction of the larynx was evaluated for episode of abdominal pain. He has a history of recurrent pancreatitis and was recently admitted in the hospital. He was evaluated in the ED with findings of mild elevation of lipase and abdominal pain concerning for pancreatitis. He was given pain control medication and IV fluid and he was admitted in observation. Allergies levofloxacin [From Levaquin] Allergy (Severe, Verified 02/05/23 01:24) Itching/Hives/Rash ampicillin Allergy (Verified 02/05/23 01:24) Itching/Hives/Rash iodine Allergy (Verified 02/05/23 01:24) Hives/Rash Home Medications: Escitalopram [Lexapro*] 20 mg PO DAILY #30 tab 02/16/21 Gabapentin [Neurontin*] 800 mg PO TID 12/11/22 Lipase/Protease/Amylase [Creon Dr 12,000 Units Capsule] 1 tab PO TID 12/11/22 Pantoprazole Sodium [Protonix] 40 mg PO BID 30 Days #60 tab 01/02/23 Oxycodone HCl 10 mg PO Q6HP PRN 02/05/23 Levothyroxine [Synthroid*] 0.125 mg PO [id number] 30 Days #30 tab 03/06/23 - Past Medical/Surgical History Diabetic: No -: Asthma -: Depression -: Throat cancer status post complete laryngectomy/reconstruction 06/2018 -: Recurrent postop infection -: Chronic pain -: Former tobacco use -: Surgical hypothyroidism -: neuropathy -: Pancreatitis/duodenitis -: Tracheostomy -: Appendectomy -: Complete laryngectomy with reconstruction -: knee surgery bilateral knees -: Thyroidectomy Psychosocial/ Personal History: Patient is . He has 3 children. - Family History Father -: Heart disease, Diabetes Notes: agent orange: immobile Mother -: Cancer Notes: breast ca - Social History Alcohol use: No CD- Drugs: No Caffeine use: Yes Review of Systems General: Unremarkable Eyes: Unremarkable ENT: Unremarkable Respiratory: Unremarkable Cardiovascular: Unremarkable Gastrointestinal: Abdominal Pain Genitourinary: Unremarkable Musculoskeletal: Unremarkable Integumentary: Unremarkable Neurological: Unremarkable Lymphatics: Unremarkable Physical Examination - Physical Exam General: Alert, Oriented x3 HEENT: Atraumatic Neck: Supple Respiratory: Normal air movement Cardiovascular: Regular rate/rhythm, Normal S1 S2 Gastrointestinal: Soft and benign Musculoskeletal: No swelling Neurological: Normal speech - Studies Laboratory Data (last 24 hrs) 03/13/23 03/13/23 18:54 18:04 WBC 10.00 Hgb 16.3 Hct 50.0 H Plt Count 248 Sodium 140 Potassium 3.6 BUN 4 L Creatinine 0.59 L Glucose 105 Total Bilirubin 0.7 AST 20 ALT 17 Alkaline Phosphatase 138 H Lipase 231 H Assessment and Plan - Plan Pancreatitis: This is chronic and recurring. Patient is on enzyme replacement therapy Continue as needed pain control with Dilaudid. Continue IV lactated Ringer's for hydration. Will follow clinical symptomatology closely. Will keep n.p.o. for now Hypothyroidism: Will continue levothyroxine for replacement Prophylaxis: Lovenox for DVT prophylaxis CODE STATUS: Full code Disposition: Will treat his abdominal pain and he will be discharged once he is clinically stable. - Advance Directives Does patient have a Living Will: No Does patient have a Durable POA for Healthcare: No Time Spent Managing Pts Care (In Minutes): 60
[2023-03-13] MEDS: Ringers Lactate 1,000 ML IV SCH (22:00)
[2023-03-13 23:00] VITALS: BMI 24.1
[2023-03-14] MEDS ORDERED: Ringers Lactate 1,000 ML IV ONE (01:15)
[2023-03-14] MEDS: Ringers Lactate 1,000 ML IV SCH ×4 (01:58→18:26)
[2023-03-14] MEDS: HYDROMORPHONE HCL 0.5 MG/0.5 ML INJ IV PRN ×6 (01:59→22:34)
[2023-03-14] MEDS ORDERED: HYDROMORPHONE HCL 0.5 MG/0.5 ML INJ ONE (02:17)
[2023-03-14] MEDS: ENOXAPARIN 40 MG/0.4 ML SQ SCH (09:04)
[2023-03-15] MEDS: HYDROMORPHONE HCL 0.5 MG/0.5 ML INJ IV PRN ×4 (02:21→17:51)
[2023-03-15] MEDS: Ringers Lactate 1,000 ML IV SCH ×3 (02:24→18:43)
[2023-03-15] MEDS: ENOXAPARIN 40 MG/0.4 ML SQ SCH (08:36)
[2023-03-15] MEDS: ESCITALOPRAM 20 MG TAB PO SCH (10:45)
[2023-03-15 10:50] LABS: Absolute Lymphocytes (CBC) 0.7 K/uL (0.7-4.9); Hematocrit 46.3 % (39.6-49.0); Lymphocytes % 8.2 % (15.3-44.8); MCV 90.9 fL (80-100); MPV 7.8 fL (7.6-11.3); Platelets 181 thou/uL (152-406); RBC Red Blood Cell Count 5.09 M/uL (4.33-5.43)
[2023-03-15] MEDS: LIPASE/PROTEASE/AMYLASE CAP PO SCH ×3 (11:00→19:57)
[2023-03-15 11:10] LABS: Bilirubin Total 1.9 mg/dL (0.2-1.0); Potassium 3.9 mEq/L (3.5-5.1); Protein, Total 6.6 g/dL (6.4-8.2)
[2023-03-15] MEDS: GABAPENTIN 100 MG CAP PO SCH ×2 (13:47→19:57)
[2023-03-15] MEDS: OXYCODONE HCL 5 MG TAB PO PRN ×2 (15:00→21:52)
[2023-03-15] MEDS: PANTOPRAZOLE 40MG TABLET PO SCH (19:57)
[2023-03-15] MEDS: HYDROMORPHONE HCL 1 MG/ML INJ IV PRN (23:58)
[2023-03-16] MEDS: LEVOTHYROXINE SOD 0.125 MG TAB PO SCH (04:03)
[2023-03-16] MEDS: OXYCODONE HCL 5 MG TAB PO PRN ×4 (04:03→22:22)
[2023-03-16] MEDS: HYDROMORPHONE HCL 1 MG/ML INJ IV PRN ×3 (06:11→19:38)
[2023-03-16] MEDS: GABAPENTIN 400 MG CAP PO SCH ×3 (08:57→19:38)
[2023-03-16] MEDS: ESCITALOPRAM 20 MG TAB PO SCH (08:57)
[2023-03-16] MEDS: PANTOPRAZOLE 40MG TABLET PO SCH ×2 (08:57→19:38)
[2023-03-16] MEDS: LIPASE/PROTEASE/AMYLASE CAP PO SCH ×3 (08:58→19:38)
[2023-03-16] MEDS: ENOXAPARIN 40 MG/0.4 ML SQ SCH (08:58)
--- NOTE | 2023-03-16 09:25 | P.PN ---
Subjective Date of Service: 03/16/23 Chief Complaint: Abdominal pain, pancreatitis. General: Alert, Oriented x3 HEENT: Atraumatic Neck: Supple Respiratory: Normal air movement Cardiovascular: Regular rate/rhythm, Normal S1 S2 Gastrointestinal: Soft and benign Musculoskeletal: No swelling Neurological: Normal speech Review of Systems 10-point ROS is otherwise unremarkable (per HPI) Physical Examination - Vital Signs Temperature: 98.2 F Blood Pressure: 99/58 Pulse: 81 Respirations: 20 Pulse Ox (%): 92 Assessment And Plan - Plan - Plan Pancreatitis: This is chronic and recurring. Will follow clinical symptomatology closely. Will keep n.p.o. for now Pancreatic enzyme added 12,000 units 3 times daily with meals, Dilaudid for pain as needed, Oxy IR PPI twice daily LR at 125 Trend lipase Hypothyroidism: Will continue levothyroxine for replacement Prophylaxis: Lovenox for DVT prophylaxis CODE STATUS: Full code Disposition: Will treat his abdominal pain and he will be discharged once he is clinically stable. Discharge Plan: Home - Code Status/Comfort Care Code Status: Full Code Physician Review: Patient Assessed, Agree with Above Assessment and Plan Critical Care: No Time Spent Managing PTS Care (In Minutes): 35
[2023-03-16 11:40] LABS: Absolute Lymphocytes (CBC) 0.6 K/uL (0.7-4.9); Hematocrit 44.6 % (39.6-49.0); Lymphocytes % 11.5 % (15.3-44.8); MPV 7.8 fL (7.6-11.3); Platelets 176 thou/uL (152-406); RBC Red Blood Cell Count 4.85 M/uL (4.33-5.43)
--- NOTE | 2023-03-16 11:45 | P.DS ---
Admission Date: 03/14/23 Discharge Date: 03/16/23 Disposition: ROUTINE DISCHARGE Reason for Admission: Abdominal pain, pancreatitis. 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 He has a history of recurrent pancreatitis and was recently admitted in the hospital. He was evaluated in the ED with findings of mild elevation of lipase and abdominal pain concerning for pancreatitis. He was given pain control medication and IV fluid and he was admitted in observation. - Physical Exam General: Alert, Oriented x3 HEENT: Atraumatic Neck: Supple Respiratory: Normal air movement Cardiovascular: Regular rate/rhythm, Normal S1 S2 Gastrointestinal: Soft and benign Musculoskeletal: No swelling Neurological: Normal speech Hospital Course: - Plan Pancreatitis: This is chronic and recurring. Will follow clinical symptomatology closely. NPO, advance as tolerated Pancreatic enzyme added 12,000 units 3 times daily with meals, Dilaudid for pain as needed, Oxy IR PPI twice daily LR at 125 Trend lipase Hypothyroidism: Will continue levothyroxine for replacement Prophylaxis: Lovenox for DVT prophylaxis CODE STATUS: Full code Disposition: Will treat his abdominal pain and he will be discharged once he is clinically stable. Discharge Plan: Home Vital Signs/Physical Exam: Temp Pulse Resp BP Pulse Ox 98.2 F 81 20 99/58 L 92 03/16/23 09:34 03/16/23 09:34 03/16/23 10:57 03/16/23 09:34 03/16/23 10:57 Laboratory Data at Discharge: WBC 5.00 thou/uL (4.3-10.9) 03/16/23 11:30 Hgb 15.1 g/dL (13.6-17.9) 03/16/23 11:30 Hct 44.6 % (39.6-49.0) 03/16/23 11:30 Plt Count 176 thou/uL (152-406) 03/16/23 11:30 Sodium 135 mEq/L (136-145) L 03/15/23 10:43 Potassium 3.9 mEq/L (3.5-5.1) 03/15/23 10:43 BUN 6 mg/dL (7-18) L 03/15/23 10:43 Creatinine 0.63 mg/dL (0.70-1.30) L 03/15/23 10:43 Glucose 83 mg/dL (74-106) 03/15/23 10:43 Total Bilirubin 1.9 mg/dL (0.2-1.0) H 03/15/23 10:43 AST 17 U/L (15-37) 03/15/23 10:43 ALT 27 U/L (16-61) 03/15/23 10:43 Alkaline Phosphatase 170 U/L (45-117) H 03/15/23 10:43 Triglycerides 88 mg/dL (<150) 03/15/23 10:43 Lipase 149 U/L (13-75) H 03/15/23 10:43 Home Medications: Escitalopram [Lexapro*] 20 mg PO DAILY #30 tab 02/16/21 Gabapentin [Neurontin*] 800 mg PO TID 12/11/22 Lipase/Protease/Amylase [Creon Dr 12,000 Units Capsule] 1 tab PO TID 12/11/22 Pantoprazole Sodium [Protonix] 40 mg PO BID 30 Days #60 tab 01/02/23 Oxycodone HCl 10 mg PO Q6HP PRN 02/05/23 Levothyroxine [Synthroid*] 0.125 mg PO [id number] 30 Days #30 tab 03/06/23 Followup: NONE,NONE [Primary Care Provider] -
[2023-03-16] MEDS: Ringers Lactate 1,000 ML IV SCH ×2 (11:53→19:37)
[2023-03-16 11:57] LABS: ALT/SGPT 30 U/L (16-61); AST/SGOT 37 U/L (15-37); Albumin 2.7 g/dL (3.4-5.0); Alkaline Phosphatase 239 U/L (45-117); Bicarbonate 31 mEq/L (21-32); Bilirubin Total 1.4 mg/dL (0.2-1.0); Glomerular Filtration Rate 110 ml/min (=/>90); Glucose Level 100 mg/dL (74-106); Lipase 138 U/L (13-75); Potassium 3.5 mEq/L (3.5-5.1); Protein, Total 6.1 g/dL (6.4-8.2); Sodium Level 141 mEq/L (136-145)
[2023-03-16 12:00] LABS: BUN Blood Urea Nitrogen < 3 mg/dL (7-18)
[2023-03-17] MEDS: LEVOTHYROXINE SOD 0.125 MG TAB PO SCH (03:36)
[2023-03-17] MEDS: Ringers Lactate 1,000 ML IV SCH (03:36)
[2023-03-17] MEDS: HYDROMORPHONE HCL 1 MG/ML INJ IV PRN ×2 (03:36→09:09)
[2023-03-17] MEDS: OXYCODONE HCL 5 MG TAB PO PRN (05:14)
[2023-03-17 07:22] LABS: Absolute Lymphocytes (CBC) 0.8 K/uL (0.7-4.9); Hematocrit 40.7 % (39.6-49.0); Lymphocytes % 14.4 % (15.3-44.8); MCV 92.3 fL (80-100); MPV 8.3 fL (7.6-11.3); Platelets 168 thou/uL (152-406); RBC Red Blood Cell Count 4.41 M/uL (4.33-5.43)
[2023-03-17 07:32] LABS: ALT/SGPT 30 U/L (16-61); AST/SGOT 35 U/L (15-37); Alkaline Phosphatase 198 U/L (45-117); Bicarbonate 29 mEq/L (21-32); Bilirubin Total 0.8 mg/dL (0.2-1.0); Glomerular Filtration Rate 120 ml/min (=/>90); Glucose Level 90 mg/dL (74-106); Potassium 3.5 mEq/L (3.5-5.1); Sodium Level 140 mEq/L (136-145)
[2023-03-17 07:33] LABS: Albumin 2.3 g/dL (3.4-5.0); Lipase 99 U/L (13-75); Magnesium 1.8 mg/dL (1.6-2.4); Protein, Total 5.7 g/dL (6.4-8.2)
[2023-03-17 07:41] LABS: BUN Blood Urea Nitrogen < 3 mg/dL (7-18)
[2023-03-17] MEDS: LIPASE/PROTEASE/AMYLASE CAP PO SCH (09:09)
[2023-03-17] MEDS: GABAPENTIN 400 MG CAP PO SCH (09:09)
[2023-03-17] MEDS: ENOXAPARIN 40 MG/0.4 ML SQ SCH (09:09)
[2023-03-17] MEDS: PANTOPRAZOLE 40MG TABLET PO SCH (09:09)
[2023-03-17] MEDS: ESCITALOPRAM 20 MG TAB PO SCH (09:09)
--- NOTE | 2023-03-17 09:50 | P.PN ---
Subjective Date of Service: 03/17/23 Chief Complaint: Abdominal pain, pancreatitis. pain controlled, General: Alert, Oriented x3 HEENT: Atraumatic Neck: Supple, tach, noncanulated, Respiratory: Normal air movement Cardiovascular: Regular rate/rhythm, Normal S1 S2 Gastrointestinal: Soft and benign Musculoskeletal: No swelling Neurological: Normal speech Review of Systems 10-point ROS is otherwise unremarkable (per HPI) Physical Examination - Vital Signs Temperature: 98.4 F Blood Pressure: 107/62 Pulse: 76 Respirations: 18 Pulse Ox (%): 90 Assessment And Plan - Plan - Plan Pancreatitis: This is chronic and recurring. Will follow clinical symptomatology closely. Will keep n.p.o. for now, plan to advance diet Pancreatic enzyme added 12,000 units 3 times daily with meals, Dilaudid for pain as needed, Oxy IR PPI twice daily LR at 125 Trend lipase Hypothyroidism: Will continue levothyroxine for replacement Prophylaxis: Lovenox for DVT prophylaxis CODE STATUS: Full code Disposition: Will treat his abdominal pain and he will be discharged once he is clinically stable. Discharge Plan: Home Plan to discharge in: 48 Hours - Code Status/Comfort Care Code Status: Full Code Physician Review: Patient Assessed, Agree with Above Assessment and Plan Critical Care: No Time Spent Managing PTS Care (In Minutes): 35
[2023-03-17 10:48] VITALS: O2SAT 99
[2023-03-17 12:49] VITALS: BP 99/58; TEMP 98.2
== END 2023-03-17 11:50 | disposition home or self-care (01) | DRG 440 ==
LOC: ER 17:51 → ERHOLD 21:07 → 4TH 03-14 03:01 → OBSVTOIN 03-14 13:24
PROVIDERS: ADMIT Internal Medicine Nephrology; ATTEND Hospitalist
DX: K86.1 Other chronic pancreatitis (principal); J44.9 Chronic obstructive pulmonary disease, unspecified; E03.9 Hypothyroidism, unspecified; F17.210 Nicotine dependence, cigarettes, uncomplicated; Z93.0 Tracheostomy status; Z88.1 Allergy status to other antibiotic agents; Z91.041 Radiographic dye allergy status; Z91.048 Other nonmedicinal substance allergy status; Z79.890 Hormone replacement therapy; Z79.899 Other long term (current) drug therapy
CPT/HCPCS: 36415; 80053; 83690; 83735; 84478; 85025; 96361; 96374; 96375; 99285; G0378; J1170; J1650; J2405; J7030; J7120

== ENCOUNTER → 2023-05-03 | Emergency (ER) | payer OTHER ==
[~2023-05-03] MED LIST: FENTANYL CITR 100 MCG/2 ML ONE; MORPHINE 4 MG/ML SYR ONE; NA CHLORIDE 0.9% 1,000 ML ONE; ONDANSETRON 4 MG/2 ML VIAL ONE
[2023-05-03 21:36] LABS: Absolute Lymphocytes (CBC) 1.3 K/uL (0.7-4.9); Hematocrit 38.9 % (39.6-49.0); Lymphocytes % 14.2 % (15.3-44.8); MCV 89.7 fL (80-100); MPV 7.9 fL (7.6-11.3); Platelets 259 thou/uL (152-406); RBC Red Blood Cell Count 4.33 M/uL (4.33-5.43)
[2023-05-03 22:02] LABS: Albumin 3.2 g/dL (3.4-5.0); Bilirubin Total 0.5 mg/dL (0.2-1.0); Potassium 3.3 mEq/L (3.5-5.1); Protein, Total 6.5 g/dL (6.4-8.2)
--- NOTE | 2023-05-03 22:33 | RAD REPORT ---
EXAM DESCRIPTION: CT - Abdomen Pelvis Wo Contrast - 05/03/2023 10:18 pm CLINICAL HISTORY: Abdominal pain COMPARISON: April 18, 2023 TECHNIQUE: Computed axial tomography of the abdomen and pelvis was obtained. IV and oral contrast we re not requested. All CT scans are performed using dose optimization technique as appropriate and may include automated exposure control or mA/KV adjustment according to patient size. FINDINGS: The evaluation of solid organs, vessels and bowel is limited secondary to the lack of con trast administration. Small right pleural effusion. Pancreatic head is enlarged with mild adjacent stranding. It contains a 2.5 centimeter low-density ar ea. Cholecystectomy The liver, spleen, adrenals and left kidney unremarkable. Tiny nonobstructing right renal calculus No evidence of diverticulitis. Atherosclerosis. Small umbilical hernia IMPRESSION: Mild pancreatitis 2.5 centimeter low-density area pancreatic head probably a pseudocyst
--- NOTE | 2023-05-03 22:53 | ER ---
Nurse's Notes [facility] Name: Akin Pugh Age: 52 yrs Sex: Male : 1970 Arrival Date: 05/03/2023 Time: 20:53 Bed IW7 Private MD: Diagnosis: acute on chronic pancreatitis with 2.5 cm pseudocyst Presentation: 05/03 21:02 Chief complaint: EMS states: toned out for abdominal pain, history of pancreatitis. tm6 Coronavirus screen: Vaccine status: Patient reports receiving the 2nd dose of the covid vaccine. Ebola Screen: Patient negative for fever greater than or equal to 101.5 degrees Fahrenheit, and additional compatible Ebola Virus Disease symptoms Patient denies exposure to infectious person. Patient denies travel to an Ebola-affected area in the 21 days before illness onset. No symptoms or risks identified at this time. 21:02 Method Of Arrival: EMS: [facility] tm6 23:03 Initial Sepsis Screen: Does the patient meet any 2 criteria? No. Patient's initial as6 sepsis screen is negative. Does the patient have a suspected source of infection? No. Patient's initial sepsis screen is negative. Risk Assessment: Do you want to hurt yourself or someone else? Patient reports no desire to harm self or others. Onset of symptoms was May 03, 2023. 23:03 Acuity: PAO 3 as6 Triage Assessment: 21:07 General: Appears uncomfortable, Behavior is calm, cooperative. Pain: Complains of pain tm6 in abdomen Pain currently is 10 out of 10 on a pain scale. EENT: No signs and/or symptoms were reported regarding the EENT system. Neuro: Level of Consciousness is awake, alert, obeys commands, Oriented to person, place, time, situation. Cardiovascular: Capillary refill < 3 seconds Patient's skin is warm and dry. Respiratory: Airway is patent Respiratory effort is even, unlabored, Respiratory pattern is regular, symmetrical. GI: Abdomen is flat, non-distended, Reports lower abdominal pain, upper abdominal pain. : No signs and/or symptoms were reported regarding the genitourinary system. Derm: No signs and/or symptoms reported regarding the dermatologic system. Musculoskeletal: No signs and/or symptoms reported regarding the musculoskeletal system. Historical: - Allergies: 20:57 Ampicillin; tm6 20:57 Iodinated Contrast Media - IV Dye; tm6 20:57 Iodine; tm6 20:57 Levaquin; tm6 - PMHx: 20:57 Asthma; Pancreatitis; COPD; THROAT CA; tm6 - PSHx: 20:57 Laryngectomy; tracheostomy; tm6 - Immunization history:: Adult Immunizations up to date, Client reports receiving the 2nd dose of the Covid vaccine, Flu vaccine is up to date. - Social history:: Smoking status: Patient/guardian denies using tobacco, but has a distant history of tobacco abuse. Screenin:10 [facility] ED Fall Risk Assessment (Adult) History of falling in the last 3 months, tm6 including since admission No falls in past 3 months (0 pts). Abuse screen: Denies threats or abuse. Denies injuries from another. Nutritional screening: No deficits noted. Tuberculosis screening: No symptoms or risk factors identified. Assessment: 21:10 Reassessment: see triage assessment. tm6 22:45 Reassessment: Patient and/or family updated on plan of care and expected duration. Pain tm6 level reassessed. Patient is alert, oriented x 3, equal unlabored respirations, skin warm/dry/pink. General: Appears uncomfortable. 23:44 Reassessment: Patient appears in no apparent distress at this time. No changes from tm6 previously documented assessment. Patient and/or family updated on plan of care and expected duration. Pain level reassessed. Patient is alert, oriented x 3, equal unlabored respirations, skin warm/dry/pink. 05/04 01:10 Reassessment: report given to Eligio PENA at [facility]. tm6 Vital Signs: 05/03 21:07 BP 136 / 84; Pulse 77; Resp 19; Temp 98.5; Pulse Ox 99% on R/A; Weight 77.11 kg; Height tm6 5 ft. 11 in. ; Pain 10/10; 22:44 BP 122 / 75; Pulse 66; Pulse Ox 100% ; Pain 10/10; tm6 23:43 BP 112 / 80; Pulse 72; Pulse Ox 100% on R/A; Pain 3/10; tm6 21:07 Body Mass Index 23.71 (77.11 kg, 180.34 cm) tm6 21:07 Pain Scale: Adult tm6 22:44 Pain Scale: Adult tm6 23:43 Pain Scale: Adult tm6 ED Course: 20:57 Patient arrived in ED. tm6 20:58 [facility] sb[facility] 20:58 Prerna Curry is Attending Physician. sb4 21:07 Arm band placed on right wrist. tm6 21:10 Patient has correct armband on for positive identification. Bed in low position. Call tm6 light in reach. Side rails up X 1. Provided Education on: plan of care. Client placed on continuous cardiac and pulse oximetry monitoring. NIBP monitoring applied. Door closed. Noise minimized. 21:20 Radiology exam delayed due to lab results not completed at this time. (BUN/Creatinine) eh4 IV insertion attempt and/or patient not having appropriate IV at this time. 21:31 Nilda Wyatt, RN is Primary Nurse. tm6 21:31 No provider procedures requiring assistance completed. Inserted saline lock: 20 gauge tm6 in right forearm, using aseptic technique. 22:20 Abdomen In Process Unspecified. EDMS 23:03 Triage completed. as6 05/04 00:01 Initiated transfer with Breann at [facility]. rv1 01:[address] Us to [facility] 10 B Rm 1025. rv1 Administered Medications: 05/03 21:30 Drug: morphine IVP or IV 4 mg IVP once over 4 mins Route: IVP; Infused Over: 4 mins; tm6 Site: right forearm; 21:30 Drug: Ondansetron IVP 4 mg IVP once; over 2 minutes Route: IVP; Site: right forearm; tm6 21:30 Drug: NS 0.9% IV 1000 ml IV at 1 bolus Per protocol; 1000 mL bolus Route: IV; Rate: 1 tm6 bolus; Site: right forearm; 23:44 Follow up: IV Status: IV converted to saline lock; IV Intake: 1000ml tm6 22:44 Drug: fentaNYL (PF) IVP 50 mcg IVP once Route: IVP; Site: right forearm; tm6 23:17 Drug: NS 0.9% IV 1000 ml IV at 125 ml/hr continuous Route: IV; Rate: 125 ml/hr; Site: tm6 right forearm; 05/04 01:22 Drug: morphine IVP or IV 4 mg IVP once over 4 mins Route: IVP; Infused Over: 4 mins; tm6 Site: right forearm; Medication: 05/03 21:10 VIS not applicable for this client. tm6 Intake: 23:44 IV: 1000ml; Total: 1000ml. tm6 Outcome: 22:52 ER care complete, transfer ordered by MD. aly 05/04 02:52 Patient left the ED. jb4 Signatures: Dispatcher [employer] EDMS Noah Dueñas RN RN jb4 Griffin Marshall, JEAN RN 6 [facility] Veronique Uribe PA-C PA-C sb4 Melissa Avilez rv1 Nilda Wyatt, RN RN tm6
--- NOTE | 2023-05-03 22:53 | EDPHYS ---
Physician Documentation [facility] Name: Akin Pugh Age: 52 yrs Sex: Male : 1970 Arrival Date: 05/03/2023 Time: 20:53 Bed IW7 Private MD: ED Physician Prerna Curry HPI: 05/03 21:56 This 52 yrs old Male presents to ER via EMS with complaints of Abdominal Pain. sb4 21:56 The patient presents with abdominal pain in the epigastric area. sb4 21:56 Onset: The symptoms/episode began/occurred today. The symptoms do not radiate. sb4 Associated signs and symptoms: Pertinent positives: nausea and vomiting. The patient has experienced similar episodes in the past, chronically. patient with acute on chronic pancreatitis, several hospital admissions, comes in with epigastric abdominal pain, nausea, and vomiting. last time he was admitted here, he was transferred to [facility] for ERCP. he states that they set him up with a specialist and has an appointment soon. Historical: - Allergies: 20:57 Ampicillin; tm6 20:57 Iodinated Contrast Media - IV Dye; tm6 20:57 Iodine; tm6 20:57 Levaquin; tm6 - PMHx: 20:57 Asthma; Pancreatitis; COPD; THROAT CA; tm6 - PSHx: 20:57 Laryngectomy; tracheostomy; tm6 - Immunization history:: Adult Immunizations up to date, Client reports receiving the 2nd dose of the Covid vaccine, Flu vaccine is up to date. - Social history:: Smoking status: Patient/guardian denies using tobacco, but has a distant history of tobacco abuse. ROS: 21:56 Constitutional: Negative for fever, chills, and weight loss, sb4 21:56 Abdomen/GI: Positive for abdominal pain, nausea and vomiting, 21:56 All other systems are negative, Exam: 21:56 Constitutional: This is a well developed, well nourished patient who is awake, alert, sb4 and in no acute distress. Head/Face: Normocephalic, atraumatic. Eyes: Extra-ocular motions intact. Periorbital areas with no swelling, redness, or edema. Cardiovascular: Regular rate and rhythm with a normal S1 and S2. Abdomen/GI: Soft, non-tender, no distension. Skin: Warm, dry with normal turgor. Normal color with no rashes, no lesions, and no evidence of cellulitis. MS/ Extremity: Pulses equal, no cyanosis. Neurovascular intact. Full, normal range of motion. 21:56 Abdomen/GI: Inspection: abdomen appears normal, Bowel sounds: normal, Palpation: soft, moderate abdominal tenderness, in the epigastric area, Vital Signs: 21:07 BP 136 / 84; Pulse 77; Resp 19; Temp 98.5; Pulse Ox 99% on R/A; Weight 77.11 kg; Height tm6 5 ft. 11 in. ; Pain 10/10; 22:44 BP 122 / 75; Pulse 66; Pulse Ox 100% ; Pain 10/10; tm6 23:43 BP 112 / 80; Pulse 72; Pulse Ox 100% on R/A; Pain 3/10; tm6 21:07 Body Mass Index 23.71 (77.11 kg, 180.34 cm) tm6 21:07 Pain Scale: Adult tm6 22:44 Pain Scale: Adult tm6 23:43 Pain Scale: Adult tm6 MDM: 20:58 Patient medically screened. sb4 21:56 Differential diagnosis: gastritis, non-specific abd pain, pancreatitis. sb4 22:51 Data reviewed: vital signs, nurses notes, lab test result(s), radiologic studies. sb4 Counseling: I had a detailed discussion with the patient and/or guardian regarding the historical points, exam findings, and any diagnostic results supporting the discharge/admit diagnosis, lab results, radiology results, the need to transfer to another facility, [facility] does not immediately have the required specialist. 22:55 ED course: patient has been seen by a specialist at [facility], will transfer there sb4 for continuity of care. 05/03 21:06 Order name: CBC with Diff; Complete Time: 21:58 sb4 05/03 21:06 Order name: CMP; Complete Time: 22:03 sb4 05/03 21:06 Order name: Lipase; Complete Time: 22:03 sb4 05/03 22:08 Order name: Abdomen ; Complete Time: 22:45 EDMS 05/03 21:06 Order name: IV Saline Lock; Complete Time: 21:31 sb4 05/03 21:06 Order name: Labs collected and sent; Complete Time: 21:31 sb4 02/02 23:03 Order name: NPO; Complete Time: 23:12 sb4 Administered Medications: 21:30 Drug: morphine IVP or IV 4 mg IVP once over 4 mins Route: IVP; Infused Over: 4 mins; tm6 Site: right forearm; 21:30 Drug: Ondansetron IVP 4 mg IVP once; over 2 minutes Route: IVP; Site: right forearm; tm6 21:30 Drug: NS 0.9% IV 1000 ml IV at 1 bolus Per protocol; 1000 mL bolus Route: IV; Rate: 1 tm6 bolus; Site: right forearm; 23:44 Follow up: IV Status: IV converted to saline lock; IV Intake: 1000ml tm6 22:44 Drug: fentaNYL (PF) IVP 50 mcg IVP once Route: IVP; Site: right forearm; tm6 23:17 Drug: NS 0.9% IV 1000 ml IV at 125 ml/hr continuous Route: IV; Rate: 125 ml/hr; Site: tm6 right forearm; 02 01:22 Drug: morphine IVP or IV 4 mg IVP once over 4 mins Route: IVP; Infused Over: 4 mins; tm6 Site: right forearm; Disposition Summary: 05/03/23 22:52 Transfer Ordered Notes: Transfer Location: [facility] sb4 Reason: Higher level of care sb4 Condition: Fair sb4 Problem: an acute exacerbation sb4 Symptoms: are unchanged sb4 Accepting Physician: Dr. Us(05/04/23 02:51) jb4 Diagnosis - acute on chronic pancreatitis with 2.5 cm pseudocyst sb4 Forms: - Medication Reconciliation Form sb4 - SBAR form sb4 Signatures: Dispatcher [employer] EDNoah Webster, RN RN jb4 Veronique Uribe PA-C PA-C sb4 Nilda Wyatt RN RN tm6 Corrections: (The following items were deleted from the chart) 05/03 21:58 21:56 The patient presents with abdominal pain in the epigastric area, sb4 sb4 22:08 21:10 Abdomen Pelvis W Con+CT.RAD.BRZ ordered. EDGA EDMS 05/04 01:26 05/03 22:52 GI sb4 sb4 05/04 02:51 01:26 Dr. Us sb4 jb4
[2023-05-04 03:44] VITALS: BP 112/80; TEMP 98.5; O2SAT 100
== END ==
LOC: ER 20:53
DX: K86.1 Other chronic pancreatitis (principal); K86.3 Pseudocyst of pancreas; Z88.1 Allergy status to other antibiotic agents; Z91.041 Radiographic dye allergy status
CPT/HCPCS: 85025; 36415; 83690; 80053; 74176; J3010; J2405; J7030 ×2

== ENCOUNTER 2023-05-13 20:32 | Inpatient (IN) | payer OTHER ==
[2023-05-13 21:25] LABS: Specific Gravity < 1.005 (1.005-1.030); Urine Bilirubin NEGATIVE (Negative); Urine Blood Negative (Negative); Urine Clarity Clear (Clear); Urine Color Colorless (Yellow); Urine Glucose NEGATIVE (Negative); Urine Protein NEGATIVE (Negative); Urine Urobilinogen Normal (Normal)
[2023-05-13] MEDS ORDERED: METHYLPREDNISOLONE 125 MG INJ ONE (21:29)
[2023-05-13] MEDS ORDERED: ONDANSETRON 4 MG/2 ML VIAL ONE (21:30)
[2023-05-13] MEDS ORDERED: FAMOTIDINE 20 MG/2 ML VIAL IV ONE (21:30)
[2023-05-13] MEDS ORDERED: NA CHLORIDE 0.9% 1,000 ML ONE (21:30)
[2023-05-13] MEDS ORDERED: MORPHINE 4 MG/ML SYR ONE ×2 (21:30→23:27)
[2023-05-13 21:36] LABS: Absolute Lymphocytes (CBC) 1.1 K/uL (0.7-4.9); Hematocrit 39.8 % (39.6-49.0); Lymphocytes % 11.2 % (15.3-44.8); MCV 89.5 fL (80-100); MPV 8.3 fL (7.6-11.3); Platelets 248 thou/uL (152-406); RBC Red Blood Cell Count 4.45 M/uL (4.33-5.43)
[2023-05-13 21:39] LABS: Albumin 3.2 g/dL (3.4-5.0); Bilirubin Total 0.3 mg/dL (0.2-1.0); Potassium 3.8 mEq/L (3.5-5.1); Protein, Total 6.9 g/dL (6.4-8.2)
--- NOTE | 2023-05-13 22:15 | RAD REPORT ---
EXAM DESCRIPTION: CT - Abdomen Pelvis Wo Contrast - 05/13/2023 9:38 pm CLINICAL HISTORY: Abdominal pain COMPARISON: May 03, 2023 TECHNIQUE: Computed axial tomography of the abdomen and pelvis was obtained. IV and oral contrast we re not requested. All CT scans are performed using dose optimization technique as appropriate and may include automated exposure control or mA/KV adjustment according to patient size. FINDINGS: The evaluation of solid organs, vessels and bowel is limited secondary to the lack of con trast administration. Pancreatic head is enlarged with mild adjacent stranding. Low-density area within the pancreatic head appears less prominent and may represent a pseudocyst. Cholecystectomy The liver, spleen, adrenals and left kidney unremarkable. Tiny nonobstructing right renal calculus No evidence of diverticulitis. Atherosclerosis. Small umbilical hernia IMPRESSION: Mild pancreatitis
[2023-05-13] MEDS ORDERED: DIAZEPAM 10 MG/2 ML INJ SYRINGE ONE (23:26)
--- NOTE | 2023-05-14 01:52 | ER ---
Nurse's Notes [facility] Name: Akin Pugh Age: 52 yrs Sex: Male : 1970 Arrival Date: 05/13/2023 Time: 20:32 Bed 18 Private MD: Diagnosis: Other chronic pancreatitis;Acute on chronic pancreatitis Presentation: 05/13 20:36 Chief complaint: EMS states: 52 YEAR OLD MALE REPORTS HISTORY OF PANCREATITIS AND ha1 BELIEVES HE MIGHT BE HAVING AN EPISODE. Coronavirus screen: Vaccine status:. Ebola Screen: No symptoms or risks identified at this time. Initial Sepsis Screen: Does the patient meet any 2 criteria? No. Patient's initial sepsis screen is negative. Does the patient have a suspected source of infection? No. Patient's initial sepsis screen is negative. Risk Assessment: Do you want to hurt yourself or someone else? Patient reports no desire to harm self or others. Onset of symptoms was May 13, 2023. 20:36 Method Of Arrival: EMS: [facility] ha1 20:36 Acuity: PAO 3 ha1 Triage Assessment: 20:39 General: Appears uncomfortable, Behavior is calm, cooperative. Pain: Complains of pain ha1 in abdomen Pain does not radiate. Pain currently is 9 out of 10 on a pain scale. Quality of pain is described as throbbing, Pain began gradually. Neuro: Level of Consciousness is awake, alert, obeys commands, Oriented to person, place, time, situation. Cardiovascular: Capillary refill < 3 seconds Patient's skin is warm and dry. Respiratory: Airway is patent Respiratory effort is even, unlabored, Respiratory pattern is regular, symmetrical. Derm: Skin is pink, warm \T\ dry. Musculoskeletal: Circulation, motion, and sensation intact. Historical: - Allergies: 20:39 Ampicillin; ha1 20:39 Iodinated Contrast Media - IV Dye; ha1 20:39 Iodine; ha1 20:39 Levaquin; ha1 - PMHx: 20:39 Asthma; Pancreatitis; COPD; THROAT CA; ha1 - PSHx: 20:39 Laryngectomy; tracheostomy; ha1 - Immunization history:: Adult Immunizations unknown. - Social history:: Smoking status: unknown. - Family history:: not pertinent. Screenin:41 Abuse screen: Denies threats or abuse. Denies injuries from another. Nutritional ha1 screening: No deficits noted. Tuberculosis screening: No symptoms or risk factors identified. 20:41 [facility] ED Fall Risk Assessment (Adult) History of falling in the last 3 months, ha1 including since admission No falls in past 3 months (0 pts) Confusion or Disorientation No (0 pts) Intoxicated or Sedated No (0 pts) Impaired Gait No (0 pts) Mobility Assist Device Used No (0 pt) Altered Elimination No (0 pt) Score/Fall Risk Level 0 - 2 = Low Risk Oriented to surroundings, Maintained a safe environment, Hourly rounding (assess needs \T\ fall precautionary measures) done. Assessment: 20:41 Reassessment: SEE TRIAGE ASSESSMENT. ha1 21:40 Reassessment: Patient and/or family updated on plan of care and expected duration. Pain ha1 level reassessed. Patient is alert, oriented x 3, equal unlabored respirations, skin warm/dry/pink. 22:40 Reassessment: Patient and/or family updated on plan of care and expected duration. Pain ha1 level reassessed. Patient is alert, oriented x 3, equal unlabored respirations, skin warm/dry/pink. 23:16 Reassessment: REQUESTING PAIN MEDICATION. NOTIFIED. PAIN 12/09. ha1 05/14 00:30 Reassessment: Patient and/or family updated on plan of care and expected duration. Pain ha1 level reassessed. Patient is alert, oriented x 3, equal unlabored respirations, skin warm/dry/pink. 01:30 Reassessment: Patient and/or family updated on plan of care and expected duration. Pain ha1 level reassessed. Patient is alert, oriented x 3, equal unlabored respirations, skin warm/dry/pink. 02:30 Reassessment: Patient and/or family updated on plan of care and expected duration. Pain ha1 level reassessed. Patient is alert, oriented x 3, equal unlabored respirations, skin warm/dry/pink. 03:30 Reassessment: Patient and/or family updated on plan of care and expected duration. Pain ha1 level reassessed. Patient is alert, oriented x 3, equal unlabored respirations, skin warm/dry/pink. 04:30 Reassessment: Patient and/or family updated on plan of care and expected duration. Pain ha1 level reassessed. Patient is alert, oriented x 3, equal unlabored respirations, skin warm/dry/pink. 04:38 Reassessment: report given to JEAN Robledo Vital Signs: 05/13 20:36 BP 158 / 85; Pulse 88; Resp 17 S; Pulse Ox 100% on R/A; ha1 20:40 BP 158 / 85; Pulse 89; Resp 18; Temp 98.8; Pulse Ox 100% on R/A; Weight 77.11 kg; oe Height 5 ft. 11 in. ; 23:00 BP 149 / 86; Pulse 85; Resp 17; Pulse Ox 98% on R/A; ha1 05/14 00:00 BP 144 / 78; Pulse 73; Resp 17 S; Pulse Ox 97% on R/A; ha1 01:00 BP 133 / 72; Pulse 81; Resp 17 S; Pulse Ox 98% on R/A; ha1 02:00 BP 137 / 83; Pulse 81; Resp 17 S; Pulse Ox 99% on R/A; ha1 03:00 BP 128 / 84; Pulse 72; Resp 16; Pulse Ox 98% on R/A; km8 04:00 BP 119 / 66; Pulse 65; Resp 16; Pulse Ox 98% on R/A; km8 05/13 20:40 Body Mass Index 23.71 (77.11 kg, 180.34 cm) oe ED Course: 05/13 20:35 Patient arrived in ED. ha1 20:35 Patient has correct armband on for positive identification. Placed in gown. Bed in low ha1 position. Call light in reach. Side rails up X 1. 20:35 Arm band placed on right wrist. ha1 20:36 Tammy Jimenez RN is Primary Nurse. ha1 20:39 Triage completed. ha1 21:06 Inserted saline lock: 22 gauge in right forearm, using aseptic technique. Blood oe collected. 21:07 CBC with Diff Sent. ha1 21:07 CMP Sent. ha1 21:07 Lipase Sent. ha1 21:07 Urinalysis w/ reflexes Sent. ha1 21:11 Clarke Morris MD is Attending Physician. sp4 21:40 Abdomen In Process Unspecified. EDMI 05/14 01:51 Shawn Cooley MD is Hospitalizing Provider. sp4 04:22 Provided Education on: admission process. km8 04:22 No provider procedures requiring assistance completed. km8 04:22 Patient admitted, IV remains in place. km8 Administered Medications: 05/13 21:40 Drug: NS 0.9% IV 1000 ml IV at 1 bolus Per protocol; 1000 mL bolus Route: IV; Rate: 1 ha1 bolus; Site: right forearm; 23:30 Follow up: Response: No adverse reaction; IV Status: Completed infusion; IV Intake: ha1 1000ml 21:40 Drug: Ondansetron IVP 4 mg IVP once; over 2 minutes Route: IVP; Site: right forearm; ha1 22:00 Follow up: Response: No adverse reaction ha1 21:47 Drug: Famotidine IVP 20 mg IVP once; dilute with 10 mL 0.9% NaCl; give over 2 minutes ha1 Route: IVP; Site: right antecubital; 22:05 Follow up: Response: No adverse reaction 1 21:49 Drug: MethylPrednisoLONE IVP 125 mg IVP once Route: IVP; Site: right forearm; ha1 22:00 Follow up: Response: No adverse reaction 1 21:50 Drug: morphine IVP or IV 4 mg IVP once over 4 mins Route: IVP; Infused Over: 4 mins; ha1 Site: right antecubital; 22:05 Follow up: Response: No adverse reaction; Pain is decreased; RASS: Alert and Calm (0) [facility] 23:39 Drug: morphine IVP or IV 4 mg IVP once over 4 mins Route: IVP; Infused Over: 4 mins; ha1 Site: right antecubital; 05/14 00:00 Follow up: Response: No adverse reaction; Pain is decreased; RASS: Alert and Calm (0) [facility] 05/13 23:42 Drug: Diazepam IVP 5 mg IVP once Route: IVP; Site: right antecubital; 1 05/14 00:00 Follow up: Response: No adverse reaction; Anxiety decreased ha1 03:27 Drug: metoCLOPramide IVP 10 mg IVP once; over 1 to 2 minutes Route: IVP; Site: right ha1 antecubital; 04:00 Follow up: Response: No adverse reaction; Marked relief of symptoms 1 03:29 Drug: morphine IVP or IV 4 mg IVP once over 4 mins Route: IVP; Infused Over: 4 mins; ha1 Site: right antecubital; 04:00 Follow up: Response: No adverse reaction; Pain is decreased; RASS: Alert and Calm (0) ha1 Medication: 05/13 23:17 VIS not applicable for this client. ha1 Intake: 23:30 IV: 1000ml; Total: 1000ml. ha1 Outcome: 05/14 01:52 Decision to Hospitalize by Provider. sp4 04:39 Condition: stable ha1 04:39 Discharge instructions given to patient, Instructed on the need for admit, Demonstrated understanding of instructions, 04:51 Admitted to Med/surg accompanied by tech, via wheelchair, room 222, with chart, ha1 04:56 Patient left the ED. ha1 Signatures: Dispatcher [employer] EDMS Onel Daily Heidy, RN RN ha1 Clarke Morris MD MD sp4 Michelle Espinal RN RN km8
--- NOTE | 2023-05-14 01:52 | EDPHYS ---
Physician Documentation [facility] Name: Akin Pugh Age: 52 yrs Sex: Male : 1970 Arrival Date: 05/13/2023 Time: 20:32 Bed 18 Private MD: ED Physician Clarke Morris HPI: 05/13 21:11 This 52 yrs old Male presents to ER via EMS with complaints of abd pain, sp4 vomiting . 05/14 01:48 52-year-old male presents with worsening upper abdominal pain, feeling unwell overall sp4 and also history of recurrent pancreatitis. Patient reported 4 episodes of vomiting. Historical: - Allergies: 05/13 20:39 Ampicillin; ha1 20:39 Iodinated Contrast Media - IV Dye; ha1 20:39 Iodine; ha1 20:39 Levaquin; ha1 - PMHx: 20:39 Asthma; Pancreatitis; COPD; THROAT CA; ha1 - PSHx: 20:39 Laryngectomy; tracheostomy; ha1 - Immunization history:: Adult Immunizations unknown. - Social history:: Smoking status: unknown. - Family history:: not pertinent. ROS: 05/14 01:48 Constitutional: Negative for fever, chills, and weight loss, positive abdominal pain sp4 positive vomiting positive nausea All other systems are negative, Exam: 01:48 Constitutional: This is a well developed, well nourished patient who is awake, alert, sp4 and in no acute distress. Head/Face: Normocephalic, atraumatic. Eyes: Pupils equal round and reactive to light, extra-ocular motions intact. Lids and lashes normal. Conjunctiva and sclera are not injected. Cornea within normal limits. Periorbital areas with no swelling, redness, or edema. ENT: Nares patent. No nasal discharge, no septal abnormalities noted. Tympanic membranes are normal and external auditory canals are clear. Oropharynx with no redness, swelling, or masses, exudates, or evidence of obstruction, uvula midline. Mucous membranes moist. Patient has tracheostomy, without trach collar, tracheostomy studies clear and healthy. Neck: Trachea midline, no thyromegaly or masses palpated, and no cervical lymphadenopathy. Supple, full range of motion without nuchal rigidity, or vertebral point tenderness. Chest/axilla: Normal chest wall appearance and motion. Nontender with no deformity. No lesions are appreciated. Cardiovascular: Regular rate and rhythm with a normal S1 and S2. No gallops, murmurs, or rubs. Normal PMI, no JVD. No pulse deficits. Respiratory: Lungs have equal breath sounds bilaterally, clear to auscultation and percussion. No rales, rhonchi or wheezes noted. No increased work of breathing, no retractions or nasal flaring. Abdomen/GI: Soft, non-tender, with normal bowel sounds. No distension or tympany. No guarding or rebound. No evidence of tenderness throughout. Back: No spinal tenderness. No costovertebral tenderness. Skin: Warm, dry with normal turgor. Normal color with no rashes, no lesions, and no evidence of cellulitis. MS/ Extremity: Pulses equal, no cyanosis. Neurovascular intact. Full, normal range of motion. Neuro: Awake and alert, GCS 15, oriented to person, place, time, and situation. Cranial nerves II-XII grossly intact. Motor strength 5/5 in all extremities. Sensory grossly intact. Psych: Awake, alert, with orientation to person, place and time. Behavior, mood, and affect are within normal limits Vital Signs: 05/13 20:36 BP 158 / 85; Pulse 88; Resp 17 S; Pulse Ox 100% on R/A; ha 20:40 BP 158 / 85; Pulse 89; Resp 18; Temp 98.8; Pulse Ox 100% on R/A; Weight 77.11 kg; oe Height 5 ft. 11 in. ; 23:00 BP 149 / 86; Pulse 85; Resp 17; Pulse Ox 98% on R/A; ha1 05/14 00:00 BP 144 / 78; Pulse 73; Resp 17 S; Pulse Ox 97% on R/A; ha1 01:00 BP 133 / 72; Pulse 81; Resp 17 S; Pulse Ox 98% on R/A; ha1 02:00 BP 137 / 83; Pulse 81; Resp 17 S; Pulse Ox 99% on R/A; ha1 03:00 BP 128 / 84; Pulse 72; Resp 16; Pulse Ox 98% on R/A; km8 04:00 BP 119 / 66; Pulse 65; Resp 16; Pulse Ox 98% on R/A; km8 05/13 20:40 Body Mass Index 23.71 (77.11 kg, 180.34 cm) oe MDM: 05/13 21:13 Patient medically screened. sp4 05/14 01:48 ED course: Report Status: Signed EXAM DESCRIPTION: CT - Abdomen Pelvis Wo Contrast - sp4 05/13/2023 9:38 pm CLINICAL HISTORY: Abdominal pain COMPARISON: May 03, 2023 TECHNIQUE: Computed axial tomography of the abdomen and pelvis was obtained. IV and oral contrast were not requested. All CT scans are performed using dose optimization technique as appropriate and may include automated exposure control or mA/KV adjustment according to patient size. FINDINGS: The evaluation of solid organs, vessels and bowel is limited secondary to the lack of contrast administration. Pancreatic head is enlarged with mild adjacent stranding. Low-density area within the pancreatic head appears less prominent and may represent a pseudocyst. Cholecystectomy The liver, spleen, adrenals and left kidney unremarkable. Tiny nonobstructing right renal calculus No evidence of diverticulitis. Atherosclerosis. Small umbilical hernia IMPRESSION: Mild pancreatitis Dictated By: Davi Tinsley MD 05/13/23 2215. 01:48 Differential Diagnosis altered mental status, sepsis, flu, Pancreatitis . Data sp4 reviewed: vital signs, nurses notes, EMS record, old medical records, lab test result(s), radiologic studies, CT scan. ED course: Patient is elevated lipase most likely recurrence of previous pancreatitis. Patient warrants admission for further management in the hospital. . 05/13 20:43 Order name: CBC with Diff; Complete Time: 23:23 ha1 05/13 20:43 Order name: CMP; Complete Time: 23:23 ha1 05/13 20:43 Order name: Lipase; Complete Time: 23:23 ha1 05/13 21:04 Order name: Urinalysis w/ reflexes; Complete Time: 23:23 ha1 05/14 02:34 Order name: CBC with Automated Diff EDMS 05/14 02:34 Order name: CBC with Automated Diff EDMS 05/14 02:34 Order name: CBC with Automated Diff EDMS 05/14 02:34 Order name: Comprehensive Metabolic Panel EDMS 05/14 02:34 Order name: Comprehensive Metabolic Panel EDMS 05/14 02:34 Order name: Comprehensive Metabolic Panel EDMS 05/13 21:21 Order name: Abdomen ; Complete Time: 23:23 EDMS 05/13 20:43 Order name: IV Saline Lock; Complete Time: 21:07 1 05/13 20:43 Order name: Labs collected and sent; Complete Time: 21:07 ha1 Administered Medications: 05/13 21:40 Drug: NS 0.9% IV 1000 ml IV at 1 bolus Per protocol; 1000 mL bolus Route: IV; Rate: 1 ha1 bolus; Site: right forearm; 23:30 Follow up: Response: No adverse reaction; IV Status: Completed infusion; IV Intake: ha1 1000ml 21:40 Drug: Ondansetron IVP 4 mg IVP once; over 2 minutes Route: IVP; Site: right forearm; 1 22:00 Follow up: Response: No adverse reaction 1 21:47 Drug: Famotidine IVP 20 mg IVP once; dilute with 10 mL 0.9% NaCl; give over 2 minutes [facility] Route: IVP; Site: right antecubital; 22:05 Follow up: Response: No adverse reaction 1 21:49 Drug: MethylPrednisoLONE IVP 125 mg IVP once Route: IVP; Site: right forearm; 1 22:00 Follow up: Response: No adverse reaction 1 21:50 Drug: morphine IVP or IV 4 mg IVP once over 4 mins Route: IVP; Infused Over: 4 mins; [facility] Site: right antecubital; 22:05 Follow up: Response: No adverse reaction; Pain is decreased; RASS: Alert and Calm (0) [facility] 23:39 Drug: morphine IVP or IV 4 mg IVP once over 4 mins Route: IVP; Infused Over: 4 mins; [facility] Site: right antecubital; 05/14 00:00 Follow up: Response: No adverse reaction; Pain is decreased; RASS: Alert and Calm (0) [facility] 05/13 23:42 Drug: Diazepam IVP 5 mg IVP once Route: IVP; Site: right antecubital; [facility] 05/14 00:00 Follow up: Response: No adverse reaction; Anxiety decreased 1 03:27 Drug: metoCLOPramide IVP 10 mg IVP once; over 1 to 2 minutes Route: IVP; Site: right ha1 antecubital; 04:00 Follow up: Response: No adverse reaction; Marked relief of symptoms [facility] 03:29 Drug: morphine IVP or IV 4 mg IVP once over 4 mins Route: IVP; Infused Over: 4 mins; ha1 Site: right antecubital; 04:00 Follow up: Response: No adverse reaction; Pain is decreased; RASS: Alert and Calm (0) ha1 Disposition Summary: 05/14/23 01:52 Hospitalization Ordered Notes: Hospitalization Status: Inpatient Admission sp4 Provider: Shawn Cooley sp4 Location: Telemetry/MedSur (Inpatient) sp4 Condition: Stable sp4 Problem: new sp4 Symptoms: have improved sp4 Bed/Room Type: Standard sp4 Room Assignment: 222(05/14/23 04:19) Diagnosis - Other chronic pancreatitis sp4 - Acute on chronic pancreatitis sp4 Forms: - Medication Reconciliation Form sp4 - SBAR form sp4 - Leadership Thank You Letter sp4 Signatures: Dispatcher [employer] Bibi Dunn RN Tammy Tate RN RN ha1 Clarke Morris MD MD sp4 Corrections: (The following items were deleted from the chart) 05/13 21:21 21:13 Abdomen Pelvis W Con+CT.[id number].BRZ ordered. [facility] 05/14 04:19 01:52 sp4
[2023-05-14] MEDS ORDERED: ACETAMINOPHEN 325 MG TABLET PO PRN (02:29)
[2023-05-14] MEDS ORDERED: MAGNESIUM HYDROXIDE 8% 30 ML PO PRN (02:29)
--- NOTE | 2023-05-14 02:33 | P.HP ---
Certification for Inpatient Patient admitted to: Observation With expected LOS: <2 Midnights Practitioner: I am a practitioner with admitting privileges, knowledge of patient current condition, hospital course, and medical plan of care. Services: Services provided to patient in accordance with Admission requirements found in Title 42 Section 412.3 of the Code of Federal Regulations Patient History Date of Service: 05/14/23 Reason for admission: Abdominal pain, pancreatitis History of Present Illness: 52-year-old male patient with medical history significant for recurrent chronic pancreatitis, hypertension, depression who was evaluated for episode of abdominal pain. Imaging studies done showed peripancreatic inflammation and stranding in the head of pancreas. Patient was started on IV fluid and pain control with Dilaudid. He was admitted for inpatient care for pain control. He was on enzyme replacement therapy prior to this encounter. Allergies levofloxacin [From Levaquin] Allergy (Severe, Verified 02/05/23 01:24) Itching/Hives/Rash ampicillin Allergy (Verified 02/05/23 01:24) Itching/Hives/Rash iodine Allergy (Verified 02/05/23 01:24) Hives/Rash Home Medications: Escitalopram [Lexapro*] 20 mg PO DAILY #30 tab 02/16/21 Gabapentin [Neurontin*] 800 mg PO TID 12/11/22 Lipase/Protease/Amylase [Creon Dr 12,000 Units Capsule] 1 tab PO TID 12/11/22 Pantoprazole Sodium [Protonix] 40 mg PO BID 30 Days #60 tab 01/02/23 Oxycodone HCl 10 mg PO Q6HP PRN 02/05/23 Levothyroxine [Synthroid*] 0.125 mg PO [id number] 30 Days #30 tab 03/06/23 - Past Medical/Surgical History Diabetic: No -: Asthma -: Depression -: Throat cancer status post complete laryngectomy/reconstruction 06/2018 -: Recurrent postop infection -: Chronic pain -: Former tobacco use -: Surgical hypothyroidism -: neuropathy -: Pancreatitis/duodenitis -: Tracheostomy -: Appendectomy -: Complete laryngectomy with reconstruction -: knee surgery bilateral knees -: Thyroidectomy Psychosocial/ Personal History: Patient is . He has 3 children. - Family History Father -: Heart disease, Diabetes Notes: agent orange: immobile Mother -: Cancer Notes: breast ca - Social History Alcohol use: No CD- Drugs: No Caffeine use: Yes Review of Systems General: Unremarkable Eyes: Unremarkable ENT: Unremarkable Respiratory: Unremarkable Cardiovascular: Unremarkable Gastrointestinal: Abdominal Pain Genitourinary: Unremarkable Musculoskeletal: Unremarkable Integumentary: Unremarkable Neurological: Unremarkable Lymphatics: Unremarkable Physical Examination - Physical Exam General: Alert, Oriented x3 HEENT: Atraumatic Neck: Supple Respiratory: Normal air movement Cardiovascular: Regular rate/rhythm, Normal S1 S2 Gastrointestinal: Soft and benign, Tenderness Neurological: Normal speech, Normal strength at 5/5 x4 extr - Studies Laboratory Data (last 24 hrs) 05/13/23 05/13/23 21:03 21:03 WBC 9.50 Hgb 13.6 Hct 39.8 Plt Count 248 Sodium 139 Potassium 3.8 BUN 5 L Creatinine 0.76 Glucose 91 Total Bilirubin 0.3 AST 11 L ALT 21 Alkaline Phosphatase 141 H Lipase 674 H Assessment and Plan - Plan Acute on chronic pancreatitis: Pain and inflammation in the pancreatic area is concerning. Will start pain control with Dilaudid and IV fluid lactated Ringer's. Will keep n.p.o. for now. Will evaluate for commencement of oral feeds. Continues on replacement therapy Depression: Continue on depression medication as prescribed outpatient Hypothyroidism: We will continue levothyroxine dose Prophylaxis: Lovenox for DVT prophylaxis. CODE STATUS: Full code. Disposition: We will treat his acute on chronic pancreatitis and he will be discharged once medically cleared. - Advance Directives Does patient have a Living Will: No Does patient have a Durable POA for Healthcare: No
[2023-05-14] MEDS ORDERED: METOCLOPRAMIDE 10 MG/2mL INJ ONE (03:23)
[2023-05-14] MEDS ORDERED: MORPHINE 4 MG/ML SYR ONE (03:24)
[2023-05-14 05:23] VITALS: O2SAT 98
[2023-05-14 05:42] VITALS: BMI 24.3
[2023-05-14] MEDS: HYDROMORPHONE HCL 0.5 MG/0.5 ML INJ IV PRN (07:36)
[2023-05-14] MEDS: ONDANSETRON 4 MG/2 ML VIAL IV PRN ×2 (07:37→16:33)
[2023-05-14] MEDS: AMYLASE/LIPASE/PROTEASE CAP PO SCH (08:02)
[2023-05-14] MEDS: ENOXAPARIN 40 MG/0.4 ML SQ SCH (08:02)
[2023-05-14] MEDS: Ringers Lactate 1,000 ML IV SCH (10:37)
--- NOTE | 2023-05-14 11:08 | P.PN ---
Subjective Date of Service: 05/14/23 Chief Complaint: Abdominal pain, pancreatitis Pt is resting comfortably in bed. He complains of epigastric pain. Pt denies paige nause aor vomiting. Currently NPO. No complaints. Review of Systems Unremarkable General: Unremarkable Eyes: Unremarkable ENT: Unremarkable Respiratory: Unremarkable Cardiovascular: Unremarkable Gastrointestinal: Abdominal Pain Genitourinary: Unremarkable Musculoskeletal: Unremarkable Integumentary: Unremarkable Neurological: Unremarkable Lymphatics: Unremarkable Physical Examination - Vital Signs Temperature: 97.1 F Blood Pressure: 119/68 Pulse: 64 Respirations: 19 Pulse Ox (%): 96 - Physical Exam General: Alert, In no apparent distress, Oriented x3 HEENT: Atraumatic, Normocephalic, PERRLA Neck: Supple, 2+ carotid pulse no bruit Respiratory: Clear to auscultation bilaterally, Normal air movement Cardiovascular: No edema, Normal pulses, Regular rate/rhythm Capillary refill: <2 Seconds Gastrointestinal: Normal bowel sounds, Soft and benign, Non-distended, Tenderness Musculoskeletal: No clubbing, No swelling Integumentary: No rashes, No breakdown Neurological: Normal speech, Normal strength at 5/5 x4 extr, Normal tone, Sensation intact, Cranial nerves 3-12 intact Lymphatics: No axilla or inguinal lymphadenopathy - Studies Laboratory Data (last 24 hrs) 05/13/23 05/13/23 21:03 21:03 WBC 9.50 Hgb 13.6 Hct 39.8 Plt Count 248 Sodium 139 Potassium 3.8 BUN 5 L Creatinine 0.76 Glucose 91 Total Bilirubin 0.3 AST 11 L ALT 21 Alkaline Phosphatase 141 H Lipase 674 H Assessment And Plan - Plan Acute on chronic pancreatitis: Lipase is 674. Will keep pt NPO , continue LR at 125 cc/hr and prn dilaudid. CT abd shows mild pancreatitis. Continues replacement therapy (pangestyme cn 20) Depression: Continue home med Hypothyroidism: levothyroxine DVT Prophylaxis: Lovenox. Code: Full code. Disposition: Pending hospital course.
[2023-05-14] MEDS: LEVOTHYROXINE SOD 0.1 MG TAB PO SCH (13:46)
[2023-05-14] MEDS: GABAPENTIN 400 MG CAP PO SCH (13:46)
[2023-05-14] MEDS: ESCITALOPRAM 20 MG TAB PO SCH (13:46)
[2023-05-14] MEDS: ALPRAZOLAM 0.25 MG TABLET PO PRN (20:45)
[2023-05-15 03:25] LABS: Absolute Lymphocytes (CBC) 1.3 K/uL (0.7-4.9); Hematocrit 36.4 % (39.6-49.0); Lymphocytes % 9.8 % (15.3-44.8); MCV 89.9 fL (80-100); MPV 8.3 fL (7.6-11.3); Platelets 248 thou/uL (152-406); RBC Red Blood Cell Count 4.05 M/uL (4.33-5.43)
[2023-05-15 03:32] LABS: Albumin 2.6 g/dL (3.4-5.0); Bilirubin Total 0.5 mg/dL (0.2-1.0); Potassium 3.8 mEq/L (3.5-5.1); Protein, Total 5.8 g/dL (6.4-8.2)
[2023-05-15] MEDS ORDERED: LEVOTHYROXINE SOD 0.1 MG TAB PO SCH (06:00)
[2023-05-15] MEDS ORDERED: ESCITALOPRAM 20 MG TAB PO SCH (09:00)
--- NOTE | 2023-05-15 10:49 | P.PN ---
Subjective Date of Service: 05/15/23 Chief Complaint: Abdominal pain, pancreatitis Pt is resting comfortably in bed. He complains of epigastric pain. Pt denies any nausea or vomiting. Currently tolerating CLD. Lipase is 86 <- 674. No complaints. Review of Systems Unremarkable General: Unremarkable Eyes: Unremarkable ENT: Unremarkable Respiratory: Unremarkable Cardiovascular: Unremarkable Gastrointestinal: Abdominal Pain Genitourinary: Unremarkable Musculoskeletal: Unremarkable Integumentary: Unremarkable Neurological: Unremarkable Lymphatics: Unremarkable Physical Examination - Vital Signs Temperature: 96.9 F Blood Pressure: 134/70 Pulse: 63 Respirations: 18 Pulse Ox (%): 100 - Physical Exam General: Alert, In no apparent distress, Oriented x3 HEENT: Atraumatic, Normocephalic, PERRLA Neck: Supple, 2+ carotid pulse no bruit Respiratory: Clear to auscultation bilaterally, Normal air movement Cardiovascular: No edema, Normal pulses, Regular rate/rhythm, Normal S1 S2 Capillary refill: <2 Seconds Gastrointestinal: Normal bowel sounds, Soft and benign, Non-distended, Tenderness Musculoskeletal: No clubbing, No swelling Integumentary: No rashes, No breakdown Neurological: Normal speech, Normal strength at 5/5 x4 extr, Normal tone, Sensation intact, Cranial nerves 3-12 intact Lymphatics: No axilla or inguinal lymphadenopathy Assessment And Plan - Plan Acute on chronic pancreatitis: Lipase is 86 <- 674. Will continue LR at 175 cc/hr, CLD, and prn dilaudid. CT abd shows mild pancreatitis. Continues replacement therapy (pangestyme cn 20) Depression: Continue home med Hypothyroidism: levothyroxine DVT Prophylaxis: Lovenox. Code: Full code. Disposition: Pending hospital course.
[2023-05-15] MEDS: Ringers Lactate 1,000 ML IV SCH (12:59)
[2023-05-16 03:46] LABS: Absolute Lymphocytes (CBC) 1.3 K/uL (0.7-4.9); Hematocrit 34.9 % (39.6-49.0); Lymphocytes % 18.2 % (15.3-44.8); MCV 90.5 fL (80-100); MPV 7.9 fL (7.6-11.3); Platelets 211 thou/uL (152-406); RBC Red Blood Cell Count 3.86 M/uL (4.33-5.43)
[2023-05-16 03:49] LABS: Potassium 3.7 mEq/L (3.5-5.1)
[2023-05-16 03:50] LABS: Albumin 2.5 g/dL (3.4-5.0); Bilirubin Total 0.4 mg/dL (0.2-1.0); Protein, Total 5.2 g/dL (6.4-8.2)
--- NOTE | 2023-05-16 13:02 | P.DS ---
Admission Date: 05/15/23 Discharge Date: 05/16/23 Disposition: ROUTINE DISCHARGE Discharge Condition: GOOD Reason for Admission: Abdominal pain, pancreatitis Brief History of Present Illness: 52-year-old male patient with medical history significant for recurrent chronic pancreatitis, hypertension, depression who was evaluated for episode of abdominal pain. Imaging studies done showed peripancreatic inflammation and stranding in the head of pancreas. Patient was started on IV fluid and pain control with Dilaudid. He was admitted for inpatient care for pain control. He was on enzyme replacement therapy prior to this encounter. Hospital Course: Pt is a 52 yo male with with past medical history of recurrent chronic pancreatitis, hypertension, and depression who presented with abdominal pain. Imaging study showed peripancreatic inflammation and stranding in the head of pancreas. Lipase was 674. Patient was started on IV fluid and pain control with Dilaudid. He was admitted for inpatient care for pain control. Lipase trended down to 86 and the abdominal pain improved. Pt tolerated oral intake before he was discharged. Pt was in NAD prior to discharge. Vital Signs/Physical Exam: Temp Pulse Resp BP Pulse Ox 96.4 F L 68 17 121/67 99 05/16/23 08:00 05/16/23 08:00 05/16/23 08:00 05/16/23 08:00 05/16/23 08:00 Laboratory Data at Discharge: WBC 6.90 thou/uL (4.3-10.9) 05/16/23 02:53 Hgb 11.9 g/dL (13.6-17.9) L 05/16/23 02:53 Hct 34.9 % (39.6-49.0) L 05/16/23 02:53 Plt Count 211 thou/uL (152-406) 05/16/23 02:53 Sodium 141 mEq/L (136-145) 05/16/23 02:53 Potassium 3.7 mEq/L (3.5-5.1) 05/16/23 02:53 BUN 3 mg/dL (7-18) L 05/16/23 02:53 Creatinine 0.74 mg/dL (0.70-1.30) 05/16/23 02:53 Glucose 88 mg/dL (74-106) 05/16/23 02:53 Total Bilirubin 0.4 mg/dL (0.2-1.0) 05/16/23 02:53 AST 29 U/L (15-37) 05/16/23 02:53 ALT 21 U/L (16-61) 05/16/23 02:53 Alkaline Phosphatase 109 U/L (45-117) 05/16/23 02:53 Lipase 86 U/L (13-75) H 05/15/23 02:40 Home Medications: Escitalopram [Lexapro*] 20 mg PO DAILY #30 tab 02/16/21 Gabapentin [Neurontin*] 800 mg PO TID 12/11/22 Lipase/Protease/Amylase [Creon Dr 12,000 Units Capsule] 1 tab PO TID 12/11/22 Pantoprazole Sodium [Protonix] 40 mg PO BID 30 Days #60 tab 01/02/23 Oxycodone HCl 10 mg PO Q6HP PRN 02/05/23 Levothyroxine [Synthroid*] 0.1 mg PO [id number] 05/14/23 Physician Discharge Instructions: Continue ad get activity as tolerated. Continue soft diet and prn pain med. Follow up with PCP within 1 week Diet: AHA Activity: Ad get Followup: Michelle Justice NP [Primary Care Provider] - 1 Week
[2023-05-16 15:08] VITALS: BP 99/54; TEMP 97.9
== END 2023-05-16 17:29 | disposition home or self-care (01) | DRG 440 ==
LOC: ER 20:32 → ERHOLD 05-14 02:29 → 2ND 05-14 04:30 → OBSVTOIN 05-15 16:17
PROVIDERS: ADMIT Internal Medicine Nephrology; ATTEND Hospitalist
DX: K85.90 Acute pancreatitis without necrosis or infection, unspecified (principal); I10 Essential (primary) hypertension; E03.9 Hypothyroidism, unspecified; F32.A Depression, unspecified; K86.1 Other chronic pancreatitis; J44.9 Chronic obstructive pulmonary disease, unspecified; Z93.0 Tracheostomy status; Z88.1 Allergy status to other antibiotic agents; Z90.49 Acquired absence of other specified parts of digestive tract; Z91.041 Radiographic dye allergy status; Z91.048 Other nonmedicinal substance allergy status; Z79.890 Hormone replacement therapy; Z79.899 Other long term (current) drug therapy; Z87.891 Personal history of nicotine dependence
CPT/HCPCS: 36415; 74176; 80053; 81003; 83690; 85025; 99285; G0378; J1170; J1650; J2405; J2765; J2930; J3360; J7030; J7120

== ENCOUNTER 2023-06-04 20:38 | Inpatient (IN) | payer OTHER ==
[2023-06-04] MEDS ORDERED: ONDANSETRON 4 MG/2 ML VIAL ONE (20:55)
[2023-06-04] MEDS ORDERED: KETOROLAC 30 MG/ML INJ ONE (20:55)
[2023-06-04] MEDS ORDERED: MORPHINE 4 MG/ML SYR ONE ×2 (20:56→22:23)
[2023-06-04] MEDS ORDERED: NA CHLORIDE 0.9% 2,000 ML ONE (20:56)
[2023-06-04] MEDS ORDERED: FAMOTIDINE 20 MG/2 ML VIAL IV ONE (20:56)
[2023-06-04 21:20] LABS: Absolute Basophils 0.1 K/uL (0-0.5); Absolute Eosinophils 0.1 K/uL (0-0.5); Absolute Lymphocytes (CBC) 1.2 K/uL (0.7-4.9); Basophils % 1.2 % (0-1.3); Eosinophils % 2.1 % (0-4.4); MCV 90.7 fL (80-100); MPV 7.7 fL (7.6-11.3); Platelets 289 thou/uL (152-406); RBC Red Blood Cell Count 4.08 M/uL (4.33-5.43)
[2023-06-04 21:40] LABS: Albumin/Globulin Ratio 0.8 (1.1-1.8); Anion Gap 8.9 mEq/L (5.0-15.0); Bilirubin Total 0.3 mg/dL (0.2-1.0); Globulin 3.6 g/dL (2.3-3.5); Potassium 3.9 mEq/L (3.5-5.1); Protein, Total 6.6 g/dL (6.4-8.2)
[2023-06-04] MEDS ORDERED: METOCLOPRAMIDE 10 MG/2mL INJ ONE (22:22)
--- NOTE | 2023-06-04 22:37 | RAD REPORT ---
EXAM DESCRIPTION: CT - Abdomen Pelvis Wo Contrast - 06/04/2023 10:06 pm CLINICAL HISTORY: ABD PAIN COMPARISON: Abdomen Pelvis Wo Contrast dated 05/13/2023; Abdomen Pelvis Wo Contrast dated ; Abdomen Pelvis Wo Contrast dated 04/18/2023; Abdomen Pelvis Wo Contrast dated 04/01/2023 TECHNIQUE: Thin cut axial CT imaging of the abdomen and pelvis was performed without IV contrast. Mu ltiplanar reformats were generated and reviewed. All CT scans are performed using dose optimization technique as appropriate and may include automated exposure control or mA/KV adjustment according to patient size. FINDINGS: No suspicious findings in the lung bases. The liver, spleen, and adrenal glands show no suspicious findings. Mild fullness and adjacent fat str anding again seen at the pancreatic head region. Ill-defined focus of hypoattenuation in the pancreat ic head. Gallbladder was surgically removed Symmetric renal contour, without suspicious parenchymal findings within limits of noncontrast techniq ue. No hydronephrosis. Nonobstructing 2 mm calculus at the right lower pole. No dilated bowel loops or bowel wall thickening. Mild colonic diverticulosis. No free air, free fluid or inflammatory stranding. No hernia, mass or bulky lymphadenopathy. The urinary bladder is without significant finding. No suspicious bony findings. IMPRESSION: Findings suggesting mild acute pancreatitis in the region of the pancreatic head. Nonobstructing 2 mm right lower renal pole calculus. Mild steatosis.
--- NOTE | 2023-06-04 23:16 | EDPHYS ---
Physician Documentation [facility] Name: Akin Pugh Age: 52 yrs Sex: Male : 1970 Arrival Date: 06/04/2023 Time: 20:38 Bed 19 Private MD: ED Physician Clarke Morris HPI: 06/03 20:40 This 52 yrs old Male presents to ER via Unassigned with complaints of sp4 Abdominal Pain. 23:29 PMH - Allergies: Ampicillin; Iodinated Contrast Media - IV Dye; Iodine; Levaquin PMHx: sp4 Asthma; Pancreatitis; COPD; THROAT CA; PSHx: Laryngectomy; tracheostomy. Patient is a very pleasant 52-year-old male arrives with EMS for upper abdominal pain for the past 2 days associated with nausea and vomiting. Patient has history of prior throat cancer in remission with history of tracheostomy . Also history of chronic pancreatitis with history of pancreatic pseudocyst. . Historical: - Allergies: 20:41 Ampicillin; rv 20:41 Iodinated Contrast Media - IV Dye; rv 20:41 Iodine; rv 20:41 Levaquin; rv - PMHx: 20:41 Asthma; COPD; Pancreatitis; THROAT CA; rv - PSHx: 20:41 Laryngectomy; tracheostomy; rv - Immunization history:: Adult Immunizations up to date. - Social history:: Smoking status: unknown. - Family history:: not pertinent. ROS: 23:29 Constitutional: Negative for fever, chills, and weight loss, positive upper abdominal sp4 pain and nausea vomiting 23:29 All other systems are negative, Exam: 23:29 Constitutional: This is a well developed, well nourished patient who is awake, alert, sp4 and in no acute distress. Head/Face: Normocephalic, atraumatic. Eyes: Pupils equal round and reactive to light, extra-ocular motions intact. Lids and lashes normal. Conjunctiva and sclera are not injected. Cornea within normal limits. Periorbital areas with no swelling, redness, or edema. ENT: Nares patent. No nasal discharge, no septal abnormalities noted. Tympanic membranes are normal and external auditory canals are clear. Oropharynx with no redness, swelling, or masses, exudates, or evidence of obstruction, uvula midline. Mucous membranes moist. Positive tracheostomy stoma which is patent Neck: Trachea midline, no thyromegaly or masses palpated, and no cervical lymphadenopathy. Supple, full range of motion without nuchal rigidity, or vertebral point tenderness. Positive stoma from prior tracheostomy which is patent and functional. Chest/axilla: Normal chest wall appearance and motion. Nontender with no deformity. No lesions are appreciated. Cardiovascular: Regular rate and rhythm with a normal S1 and S2. No gallops, murmurs, or rubs. Normal PMI, no JVD. No pulse deficits. Respiratory: Lungs have equal breath sounds bilaterally, clear to auscultation and percussion. No rales, rhonchi or wheezes noted. No increased work of breathing, no retractions or nasal flaring. Abdomen/GI: Soft, with normal bowel sounds. No distension or tympany. No guarding or rebound. Positive epigastric abdominal tenderness without distention Back: No spinal tenderness. No costovertebral tenderness. Skin: Warm, dry with normal turgor. Normal color with no rashes, no lesions, and no evidence of cellulitis. MS/ Extremity: Pulses equal, no cyanosis. Neurovascular intact. Full, normal range of motion. Neuro: Awake and alert, GCS 15, oriented to person, place, time, and situation. Cranial nerves II-XII grossly intact. Motor strength 5/5 in all extremities. Sensory grossly intact. Psych: Awake, alert, with orientation to person, place and time. Behavior, mood, and affect are within normal limits Vital Signs: 20:39 BP 125 / 75; Pulse 74; Resp 17; Temp 98.1; Pulse Ox 99% ; Weight 79.38 kg; Height 5 ft. rv 11 in. ; 22:30 BP 131 / 81; Pulse 55; Resp 17 S; Pulse Ox 96% on R/A; jw7 23:30 BP 125 / 79; Pulse 55; Resp 16 S; Pulse Ox 97% on R/A; jw7 06/04 02:45 BP 119 / 77; Pulse 53; Resp 17 S; Pulse Ox 96% on R/A; jw7 03:30 BP 141 / 95; Pulse 92; Resp 16 S; Pulse Ox 99% on R/A; jw7 06/03 20:39 Body Mass Index 24.41 (79.38 kg, 180.34 cm) rv Coy Coma Score: 06/03 23:29 Eye Response: spontaneous(4). Motor Response: obeys commands(6). Verbal Response: sp4 oriented(5). Total: 15. MDM: 20:43 Patient medically screened. sp4 23:10 ED course: EXAM DESCRIPTION: CT - Abdomen Pelvis Wo Contrast - 06/04/2023 10:06 pm sp4 CLINICAL HISTORY: ABD PAIN COMPARISON: Abdomen Pelvis Wo Contrast dated 05/13/2023; Abdomen Pelvis Wo Contrast dated 05/03/2023; Abdomen Pelvis Wo Contrast dated 04/18/2023; Abdomen Pelvis Wo Contrast dated 04/01/2023 TECHNIQUE: Thin cut axial CT imaging of the abdomen and pelvis was performed without IV contrast. Multiplanar reformats were generated and reviewed. All CT scans are performed using dose optimization technique as appropriate and may include automated exposure control or mA/KV adjustment according to patient size. FINDINGS: No suspicious findings in the lung bases. The liver, spleen, and adrenal glands show no suspicious findings. Mild fullness and adjacent fat stranding again seen at the pancreatic head region. Ill-defined focus of hypoattenuation in the pancreatic head. Gallbladder was surgically removed Symmetric renal contour, without suspicious parenchymal findings within limits of noncontrast technique. No hydronephrosis. Nonobstructing 2 mm calculus at the right lower pole. No dilated bowel loops or bowel wall thickening. Mild colonic diverticulosis. No free air, free fluid or inflammatory stranding. No hernia, mass or bulky lymphadenopathy. The urinary bladder is without significant finding. No suspicious bony findings. IMPRESSION: Findings suggesting mild acute pancreatitis in the region of the pancreatic head. Nonobstructing 2 mm right lower renal pole calculus. Mild steatosis. . ED course: Record review from the prior visit - CT report -05/13/2023 EXAM DESCRIPTION: CT - Abdomen Pelvis Wo Contrast - 05/13/2023 9:38 pm CLINICAL HISTORY: Abdominal pain COMPARISON: May 03, 2023 TECHNIQUE: Computed axial tomography of the abdomen and pelvis was obtained. IV and oral contrast were not requested. All CT scans are performed using dose optimization technique as appropriate and may include automated exposure control or mA/KV adjustment according to patient size. FINDINGS: The evaluation of solid organs, vessels and bowel is limited secondary to the lack of contrast administration. Pancreatic head is enlarged with mild adjacent stranding. Low-density area within the pancreatic head appears less prominent and may represent a pseudocyst. Cholecystectomy The liver, spleen, adrenals and left kidney unremarkable. Tiny nonobstructing right renal calculus No evidence of diverticulitis. Atherosclerosis. Small umbilical hernia IMPRESSION: Mild pancreatitis. 23:29 Differential Diagnosis altered mental status, sepsis, flu, Recurrent pancreatitis. Data sp4 reviewed: vital signs, nurses notes, EMS record, lab test result(s), radiologic studies, CT scan. Consideration of Admission/Observation Patient was admitted/placed on observation. Escalation of care including admission/observation considered. Management of patient was discussed with the following: Hospitalist: Patt INMAN . ED course: In the past patient has had findings of low-density area within the pancreatic head which was consistent with pseudocyst. CT there is ill-defined focus of hyperattenuation in the pancreatic head however no signs of pseudocyst. There are findings of mild acute pancreatitis in the region of pancreatic head. Mild fullness adjacent fat stranding seen in the pancreatic head. Pain was controlled with IV medications. Lipase is elevated. Patient is stable for admission for recurrent acute on chronic pancreatitis. 06/03 20:42 Order name: CBC with Diff; Complete Time: 22:17 sp4 06/03 20:42 Order name: CMP; Complete Time: 22:17 sp4 06/03 20:42 Order name: Lipase; Complete Time: 22:17 sp4 06/03 20:42 Order name: Urinalysis w/ reflexes sp4 06/03 22:08 Order name: Abdomen ; Complete Time: 07:37 EDMS 06/03 20:42 Order name: IV Saline Lock; Complete Time: 21:21 sp4 06/03 20:42 Order name: Labs collected and sent; Complete Time: 21:21 sp4 Administered Medications: 21:22 Drug: NS 0.9% IV 1000 ml IV at 1 bolus Per protocol; 1000 mL bolus Route: IV; Rate: 1 jw7 bolus; Site: left forearm; 06/04 02:49 Follow up: Response: No adverse reaction; IV Status: Completed infusion; IV Intake: jw7 1000ml 06/03 21:22 Drug: Famotidine IVP 20 mg IVP once; dilute with 10 mL 0.9% NaCl; give over 2 minutes jw7 Route: IVP; Site: left forearm; 06/04 02:48 Follow up: Response: No adverse reaction jw7 06/03 21:22 Drug: TORadol - Ketorolac IVP 15 mg IVP once Route: IVP; Site: left forearm; [facility] 06/04 02:49 Follow up: Response: No adverse reaction; Marked relief of symptoms; Pain is decreased [facility] 06/03 21:22 Drug: Ondansetron IVP 4 mg IVP once; over 2 minutes Route: IVP; Site: left forearm; [facility] 06/04 02:49 Follow up: Response: No adverse reaction [facility] 06/03 21:22 Drug: morphine IVP or IV 4 mg IVP once over 4 mins Route: IVP; Infused Over: 4 mins; [facility] Site: left forearm; 06/04 02:49 Follow up: Response: No adverse reaction; Marked relief of symptoms; Pain is decreased [facility] 06/03 22:30 Drug: NS 0.9% IV 1000 ml IV at 125 ml/hr continuous Route: IV; Rate: 125 ml/hr; Site: [facility] left forearm; 06/04 03:44 Follow up: Response: No adverse reaction; IV Status: Infusion continued upon admission; [facility] IV Intake: 300ml 06/03 22:44 Drug: morphine IVP or IV 4 mg IVP once over 4 mins Route: IVP; Infused Over: 4 mins; [facility] Site: left forearm; 06/04 02:48 Follow up: Response: No adverse reaction; Marked relief of symptoms; Pain is decreased [facility] 06/03 22:44 Drug: metoCLOPramide IVP 10 mg IVP once; over 1 to 2 minutes Route: IVP; Site: left [facility] forearm; 06/04 02:48 Follow up: Response: No adverse reaction [facility] Disposition Summary: 06/04/23 23:16 Hospitalization Ordered Notes: Hospitalization Status: Inpatient Admission sp4 Provider: Shawn Cooley sp4 Location: Telemetry/MedSurg (Inpatient) sp4 Condition: Stable sp4 Problem: new sp4 Symptoms: have improved sp4 Bed/Room Type: Standard sp4 Room Assignment: 410(06/05/23 02:58) jbTyler Diagnosis - Recurrent pancreatitis, intractable vomiting sp4 Forms: - Medication Reconciliation Form sp4 - SBAR form sp4 - Leadership Thank You Letter sp4 Signatures: Dispatcher [employer] Noah Rodriguez RN RN jb4 Demian Cooper, RN RN rv [facility], Carla, RN RN jw7 Clarke Morris MD MD sp4 Corrections: (The following items were deleted from the chart) 06/03 22:07 20:43 Abdomen Pelvis W Con+CT.RAD.BRZ ordered. EDMS EDMS 06/04 02:52 06/03 23:16 sp4 jb4 06/04 02:58 02:52 210 jb4 jb4
--- NOTE | 2023-06-04 23:16 | ER ---
Nurse's Notes [facility] Name: Akin Pugh Age: 52 yrs Sex: Male : 1970 Arrival Date: 06/04/2023 Time: 20:38 Bed 19 Private MD: Diagnosis: Recurrent pancreatitis, intractable vomiting Presentation: 06/03 20:39 Chief complaint: EMS states: upper abd pain, with nausea/vomiting/diarreha. Coronavirus rv screen: At this time, the client does not indicate any symptoms associated with coronavirus-19. Ebola Screen: No symptoms or risks identified at this time. Initial Sepsis Screen: Does the patient meet any 2 criteria? No. Patient's initial sepsis screen is negative. Does the patient have a suspected source of infection? No. Patient's initial sepsis screen is negative. Risk Assessment: Do you want to hurt yourself or someone else? Patient reports no desire to harm self or others. Onset of symptoms was June 04, 2023. 20:39 Method Of Arrival: EMS: [facility] rv 20:39 Acuity: PAO 3 rv Triage Assessment: 20:41 General: Appears in no apparent distress. Behavior is calm, cooperative. Pain: rv Complains of pain in abdomen. Neuro: Level of Consciousness is awake, alert, obeys commands, Oriented to person, place, time, situation. Cardiovascular: Capillary refill < 3 seconds Patient's skin is warm and dry. Respiratory: Airway is patent Respiratory effort is even, unlabored. GI: Abdomen is flat, non-distended. Derm: Skin is intact. Historical: - Allergies: 20:41 Ampicillin; rv 20:41 Iodinated Contrast Media - IV Dye; rv 20:41 Iodine; rv 20:41 Levaquin; rv - PMHx: 20:41 Asthma; COPD; Pancreatitis; THROAT CA; rv - PSHx: 20:41 Laryngectomy; tracheostomy; rv - Immunization history:: Adult Immunizations up to date. - Social history:: Smoking status: unknown. - Family history:: not pertinent. Screenin:42 [facility] ED Fall Risk Assessment (Adult) History of falling in the last 3 months, rv including since admission No falls in past 3 months (0 pts) Score/Fall Risk Level 0 - 2 = Low Risk Oriented to surroundings, Maintained a safe environment, Educated pt \T\ family on fall prevention, incl call for assistance when getting out of bed, Assessed \T\ reinforced patient's understanding of fall precautions. Abuse screen: Denies threats or abuse. Denies injuries from another. Nutritional screening: No deficits noted. Tuberculosis screening: No symptoms or risk factors identified. Assessment: 21:00 General: Appears in no apparent distress. comfortable, Behavior is calm, cooperative. jw7 Pain: Complains of pain in abdomen Pain does not radiate. Pain currently is 8 out of 10 on a pain scale. Quality of pain is described as crampy, sharp, Pain began suddenly, Is continuous, Alleviated by medications. Neuro: Level of Consciousness is awake, alert, obeys commands, Oriented to person, place, time, situation. Cardiovascular: Heart tones S1 S2 present Capillary refill < 3 seconds Clubbing of nail beds is absent JVD is absent Patient's skin is warm and dry. Respiratory: Airway is patent Trachea midline Respiratory effort is even, unlabored, Respiratory pattern is regular, symmetrical. GI: Abdomen is flat, non-distended, Bowel sounds present X 4 quads. Abd is soft X 4 quads Abdomen is tender to palpation. : No deficits noted. No signs and/or symptoms were reported regarding the genitourinary system. EENT: No deficits noted. No signs and/or symptoms were reported regarding the EENT system. Derm: Skin is intact, is healthy with good turgor, Skin is dry, Skin is normal, Skin temperature is warm. Musculoskeletal: Circulation, motion, and sensation intact. Range of motion: intact in all extremities. 22:00 Reassessment: Patient appears in no apparent distress at this time. No changes from jw7 previously documented assessment. Patient and/or family updated on plan of care and expected duration. Pain level reassessed. Patient is alert, oriented x 3, equal unlabored respirations, skin warm/dry/pink. 23:00 Reassessment: Patient appears in no apparent distress at this time. Patient and/or jw7 family updated on plan of care and expected duration. Pain level reassessed. Patient is alert, oriented x 3, equal unlabored respirations, skin warm/dry/pink. Patient states symptoms have improved. 06/04 00:00 Reassessment: Patient appears in no apparent distress at this time. No changes from jw7 previously documented assessment. Patient and/or family updated on plan of care and expected duration. Pain level reassessed. Patient is alert, oriented x 3, equal unlabored respirations, skin warm/dry/pink. 01:00 Reassessment: Patient appears in no apparent distress at this time. No changes from [facility] previously documented assessment. Patient and/or family updated on plan of care and expected duration. Pain level reassessed. Patient is alert, oriented x 3, equal unlabored respirations, skin warm/dry/pink. 02:00 Reassessment: Patient appears in no apparent distress at this time. No changes from [facility] previously documented assessment. Patient and/or family updated on plan of care and expected duration. Pain level reassessed. Patient is alert, oriented x 3, equal unlabored respirations, skin warm/dry/pink. 03:02 General: Attempted to call report, nurse will call back. [facility] Vital Signs: 06/03 20:39 BP 125 / 75; Pulse 74; Resp 17; Temp 98.1; Pulse Ox 99% ; Weight 79.38 kg; Height 5 ft. rv 11 in. ; 22:30 BP 131 / 81; Pulse 55; Resp 17 S; Pulse Ox 96% on R/A; jw7 23:30 BP 125 / 79; Pulse 55; Resp 16 S; Pulse Ox 97% on R/A; 7 06/04 02:45 BP 119 / 77; Pulse 53; Resp 17 S; Pulse Ox 96% on R/A; jw7 03:30 BP 141 / 95; Pulse 92; Resp 16 S; Pulse Ox 99% on R/A; jw7 06/03 20:39 Body Mass Index 24.41 (79.38 kg, 180.34 cm) rv Cal Coma Score: 06/03 23:29 Eye Response: spontaneous(4). Motor Response: obeys commands(6). Verbal Response: sp4 oriented(5). Total: 15. ED Course: 20:39 Patient arrived in ED. jj6 20:40 Clarke Morris MD is Attending Physician. sp4 20:41 Triage completed. rv 20:41 Arm band placed on right wrist. rv 20:42 Patient has correct armband on for positive identification. Client placed on continuous rv cardiac and pulse oximetry monitoring. NIBP monitoring applied. 20:42 No provider procedures requiring assistance completed. rv 20:48 Carla Enciso RN is Primary Nurse. jw7 20:50 Initial lab(s) drawn, by me, sent to lab. Inserted saline lock: 20 gauge in left jw7 forearm, using aseptic technique. Blood collected. 22:06 CT completed. Patient tolerated procedure well. Patient moved back from CT. nj 22:08 Abdomen In Process Unspecified. EDMS 23:15 Shawn Cooley MD is Hospitalizing Provider. [facility] 06/04 03:40 Provided Education on: need for admit. jw7 03:40 Patient admitted, IV remains in place. jw7 Administered Medications: 06/03 21:22 Drug: NS 0.9% IV 1000 ml IV at 1 bolus Per protocol; 1000 mL bolus Route: IV; Rate: 1 jw7 bolus; Site: left forearm; 06/04 02:49 Follow up: Response: No adverse reaction; IV Status: Completed infusion; IV Intake: jw7 1000ml 06/03 21:22 Drug: Famotidine IVP 20 mg IVP once; dilute with 10 mL 0.9% NaCl; give over 2 minutes jw7 Route: IVP; Site: left forearm; 06/04 02:48 Follow up: Response: No adverse reaction jw7 06/03 21:22 Drug: TORadol - Ketorolac IVP 15 mg IVP once Route: IVP; Site: left forearm; jw7 06/04 02:49 Follow up: Response: No adverse reaction; Marked relief of symptoms; Pain is decreased jw7 06/03 21:22 Drug: Ondansetron IVP 4 mg IVP once; over 2 minutes Route: IVP; Site: left forearm; jw7 06/04 02:49 Follow up: Response: No adverse reaction jw7 06/03 21:22 Drug: morphine IVP or IV 4 mg IVP once over 4 mins Route: IVP; Infused Over: 4 mins; jw7 Site: left forearm; 06/04 02:49 Follow up: Response: No adverse reaction; Marked relief of symptoms; Pain is decreased jw7 06/03 22:30 Drug: NS 0.9% IV 1000 ml IV at 125 ml/hr continuous Route: IV; Rate: 125 ml/hr; Site: [facility] left forearm; 06/04 03:44 Follow up: Response: No adverse reaction; IV Status: Infusion continued upon admission; jw7 IV Intake: 300ml 06/03 22:44 Drug: morphine IVP or IV 4 mg IVP once over 4 mins Route: IVP; Infused Over: 4 mins; jw7 Site: left forearm; 06/04 02:48 Follow up: Response: No adverse reaction; Marked relief of symptoms; Pain is decreased jw7 06/03 22:44 Drug: metoCLOPramide IVP 10 mg IVP once; over 1 to 2 minutes Route: IVP; Site: left jw7 forearm; 06/04 02:48 Follow up: Response: No adverse reaction jw7 Medication: 06/03 20:42 VIS not applicable for this client. rv Intake: 06/04 02:49 IV: 1000ml; Total: 1000ml. jw7 03:44 IV: 300ml; Total: 1300ml. jw7 Outcome: 06/03 23:16 Decision to Hospitalize by Provider. sp4 06/04 03:39 Admitted to Tele accompanied by tech, via wheelchair, room 410, Report called to braulio Gee RN Condition: stable Instructed on the need for admit, Demonstrated understanding of instructions, 03:44 Patient left the ED. jw7 Signatures: Dispatcher [employer] EDMS Norris Jeffers Ronaldo, RN RN rv Keerthi Doj6 Carla Enciso RN RN jw7 Clarke Morris MD MD sp4 Corrections: (The following items were deleted from the chart) 06/03 20:43 20:41 Respiratory: Airway is patent Respiratory effort is even, unlabored, rv rv
[2023-06-05] MEDS ORDERED: ACETAMINOPHEN 325 MG TABLET PO PRN (02:40)
[2023-06-05] MEDS ORDERED: MAGNESIUM HYDROXIDE 8% 30 ML PO PRN (02:40)
[2023-06-05] MEDS ORDERED: PROMETHAZINE 25 MG TABLET PO PRN (02:40)
--- NOTE | 2023-06-05 02:43 | P.HP ---
Certification for Inpatient Patient admitted to: Observation With expected LOS: <2 Midnights Practitioner: I am a practitioner with admitting privileges, knowledge of patient current condition, hospital course, and medical plan of care. Services: Services provided to patient in accordance with Admission requirements found in Title 42 Section 412.3 of the Code of Federal Regulations Patient History Date of Service: 06/05/23 Reason for admission: Abdominal pain History of Present Illness: 50-year-old male patient with past medical history significant for chronic pancreatitis hide the cough level came to the ED with complaint of abdominal pain. He had imaging study with a CT of the abdomen shows pelvis that showed inflammation in the head of pancreas and a 2 mm right kidney stone. He was admitted for pain control. Other medical issues include hypothyroidism, depression. Allergies levofloxacin [From Levaquin] Allergy (Severe, Verified 02/05/23 01:24) Itching/Hives/Rash ampicillin Allergy (Verified 02/05/23 01:24) Itching/Hives/Rash iodine Allergy (Verified 02/05/23 01:24) Hives/Rash Home Medications: Escitalopram [Lexapro*] 20 mg PO DAILY #30 tab 02/16/21 Gabapentin [Neurontin*] 800 mg PO TID 12/11/22 Lipase/Protease/Amylase [Creon Dr 12,000 Units Capsule] 1 tab PO TID 12/11/22 Pantoprazole Sodium [Protonix] 40 mg PO BID 30 Days #60 tab 01/02/23 Oxycodone HCl 10 mg PO Q6HP PRN 02/05/23 Levothyroxine [Synthroid*] 0.1 mg PO [id number] 05/14/23 - Past Medical/Surgical History Diabetic: No -: Asthma -: Depression -: Throat cancer status post complete laryngectomy/reconstruction 06/2018 -: Recurrent postop infection -: Chronic pain -: Former tobacco use -: Surgical hypothyroidism -: neuropathy -: Pancreatitis/duodenitis -: Tracheostomy -: Appendectomy -: Complete laryngectomy with reconstruction -: knee surgery bilateral knees -: Thyroidectomy Psychosocial/ Personal History: Patient is . He has 3 children. - Family History Father -: Heart disease, Diabetes Notes: agent orange: immobile Mother -: Cancer Notes: breast ca - Social History Alcohol use: No CD- Drugs: No Caffeine use: Yes Review of Systems General: Malaise Eyes: Unremarkable ENT: Unremarkable Respiratory: Unremarkable Cardiovascular: Unremarkable Gastrointestinal: Abdominal Pain Genitourinary: Unremarkable Musculoskeletal: Unremarkable Integumentary: Unremarkable Neurological: Unremarkable Lymphatics: Unremarkable Physical Examination - Physical Exam General: Alert, Oriented x3 HEENT: Atraumatic Neck: Supple Respiratory: Normal air movement Cardiovascular: Regular rate/rhythm, Normal S1 S2 Gastrointestinal: Soft and benign Musculoskeletal: No swelling Neurological: Normal speech, Normal strength at 5/5 x4 extr - Studies Laboratory Data (last 24 hrs) 06/04/23 06/04/23 21:09 21:09 WBC 7.20 Hgb 12.6 L Hct 37.0 L Plt Count 289 Sodium 141 Potassium 3.9 BUN 4 L Creatinine 0.72 Glucose 102 Total Bilirubin 0.3 AST 8 L ALT 18 Alkaline Phosphatase 110 Lipase 344 H Assessment and Plan - Plan Acute pancreatitis: Patient has a history of chronic pancreatitis and alcohol acute flare. Imaging study showed inflammation in the pancreatic head Continue with pancreolipase has supplementation. Continue Dilaudid for pain control. Continue lactated Ringer's for IV repletion and keep NPO. History of hypothyroidism: Continue levothyroxine dose. History of depression: Continue citalopram Prophylaxis: Lovenox for DVT prophylaxis CODE STATUS: Full code Disposition: We will treat acute pancreatitis episode and he will be discharged once pain control is achieved. - Advance Directives Does patient have a Living Will: No Does patient have a Durable POA for Healthcare: No
[2023-06-05] MEDS: HYDROMORPHONE HCL 0.5 MG/0.5 ML INJ IV PRN (04:15)
[2023-06-05] MEDS: ENOXAPARIN 40 MG/0.4 ML SQ SCH (08:12)
--- NOTE | 2023-06-05 18:21 | P.PN ---
Date of Service: 06/05/23 Patient reported abdominal pain this morning but states that his pain has currently improved and requested to eat. Start with clear liquid diet and advance as tolerated. Check lipase level in a.m. Continue supportive measures with IV fluid. Analgesics as needed.
[2023-06-05] MEDS: NA CHLORIDE 0.9% 1,000 ML IV SCH (20:14)
[2023-06-06 03:30] VITALS: BMI 24.4
[2023-06-06] MEDS: ONDANSETRON 4 MG/2 ML VIAL IV PRN (13:15)
--- NOTE | 2023-06-06 16:41 | P.PN ---
Subjective Date of Service: 06/06/23 Chief Complaint: Abdominal pain Patient reported nausea and has not tolerated diet. Lipase level trended down. Physical Examination - Vital Signs Temperature: 97.3 F Blood Pressure: 157/77 Pulse: 60 Respirations: 12 Pulse Ox (%): 99 Assessment And Plan - Plan Physical examination General: Alert and oriented x3, NAD, HEENT: Conjunctiva not pale, anicteric sclera Neck: Supple, no elevated JVD Heart: Heart sounds 1 and 2 normal, regular rhythm, normal rate, no pedal edema Lungs: Clear to auscultation bilaterally, adequate breath sounds bilaterally, no rhonchi or crackles. Abdomen: Soft, nondistended, mild abdominal tenderness, normal bowel sounds. Extremities: No tenderness, no deformity Skin: Normal skin turgor, no rash, no nodules or ulcers. Neuro: No focal motor deficit. Normal speech. Psychiatry: Normal mood, no agitation. Acute on chronic pancreatitis CT abdomen showed inflammation in the pancreatic head Continue supportive measures with IV hydration and analgesics as needed. Clear liquid diet Continue pancreolipase. Serial lipase History of hypothyroidism Continue home dose levothyroxine . History of depression Continue citalopram Prophylaxis: Lovenox for DVT prophylaxis CODE STATUS: Full code
[2023-06-07 06:52] LABS: Absolute Eosinophils 0.2 K/uL (0-0.5); Absolute Lymphocytes (CBC) 0.7 K/uL (0.7-4.9); Basophils % 0.9 % (0-1.3); Eosinophils % 3.5 % (0-4.4); Hematocrit 36.1 % (39.6-49.0); Lymphocytes % 13.7 % (15.3-44.8); MPV 7.7 fL (7.6-11.3); Platelets 227 thou/uL (152-406); RBC Red Blood Cell Count 4.01 M/uL (4.33-5.43)
[2023-06-07 07:13] LABS: Anion Gap 6.8 mEq/L (5.0-15.0); Potassium 3.8 mEq/L (3.5-5.1)
[2023-06-07] MEDS: LIPASE/PROTEASE/AMYLASE CAP PO SCH (09:00)
[2023-06-07] MEDS: PANTOPRAZOLE 40MG TABLET PO SCH (09:32)
[2023-06-07] MEDS: GABAPENTIN 400 MG CAP PO SCH (09:32)
[2023-06-07] MEDS: ESCITALOPRAM 20 MG TAB PO SCH (09:32)
--- NOTE | 2023-06-07 16:47 | P.PN ---
Date of Service: 06/07/23 Subjective Awake and uncomfortable, pain not controlled On CLD, did not tolerated diet advancement ROS 10 point ROS as noted above, otherwise negative Physical Exam General: Alert and oriented x3, NAD, calm HEENT: Conjunctiva not pale, anicteric sclera, tracheostomy Neck: Supple, no elevated JVD Heart: S1 S2 present, RRR, no pedal edema Lungs: Clear to auscultation bilaterally, adequate breath sounds bilaterally, no rhonchi or crackles. Abdomen: Soft, nondistended, mild abdominal tenderness, normal bowel sounds. Extremities: No tenderness, no deformity Skin: Normal skin turgor, no rash, no nodules or ulcers. Neuro: No focal motor deficit. Normal speech. Psychiatry: Normal mood, no agitation. Vitals Reviewed Problem list Acute on chronic pancreatitis History of hypothyroidism History of depression Assessment and Plan Acute on chronic pancreatitis CT abdomen showed inflammation in the pancreatic head Continue supportive measures with IV hydration and analgesics as needed. increased dilaudid to 1 mg Q4h Clear liquid diet Continue pancreolipase. Serial lipase increased to 564 History of hypothyroidism Continue home dose levothyroxine . History of depression Continue citalopram Prophylaxis: Lovenox for DVT prophylaxis CODE STATUS: Full code
[2023-06-07] MEDS: HYDROMORPHONE HCL 1 MG/ML INJ IV PRN (18:42)
[2023-06-08] MEDS: LEVOTHYROXINE SOD 0.1 MG TAB PO SCH (05:42)
--- NOTE | 2023-06-08 06:54 | P.PN ---
Date of Service: 06/08/23 Subjective Tolerating CLD, advance to GI soft. Reports feeling nauseous with GI soft diet but does not want to de-escalate to clear liquid diet again. He will try GI soft at dinner with his Zofran. Likely discharge in the a.m. ROS 10 point ROS as noted above, otherwise negative Physical Exam General: AAO x3, NAD, relaxed and cooperative HEENT: Conjunctiva not pale, anicteric sclera, tracheostomy Neck: Supple, no elevated JVD Heart: S1 S2 normal, regular rate and rhythm, no pedal edema, Lungs: Clear to auscultation bilaterally, adequate breath sounds bilaterally, no rhonchi or crackles. Abdomen: Soft, nondistended, mild abdominal tenderness, normal bowel sounds. Extremities: No tenderness, no deformity Skin: Normal skin turgor, no rash, no nodules or ulcers. Neuro: No focal motor deficit. Normal speech. Psychiatry: Normal mood, no agitation. Vitals Reviewed Problem list Acute on chronic pancreatitis History of hypothyroidism History of depression Assessment and Plan Acute on chronic pancreatitis CT abdomen showed inflammation in the pancreatic head Continue supportive measures with IV hydration and analgesics as needed. increased dilaudid to 1 mg Q4h- better pain control Clear liquid diet Continue pancreolipase. Serial lipase increased to 108 Diet advance to GI soft History of hypothyroidism Continue home dose levothyroxine History of depression Continue citalopram Prophylaxis: Lovenox for DVT prophylaxis CODE STATUS: Full code
[2023-06-08 09:17] LABS: Absolute Eosinophils 0.2 K/uL (0-0.5); Absolute Lymphocytes (CBC) 0.9 K/uL (0.7-4.9); Basophils % 0.9 % (0-1.3); Eosinophils % 4.5 % (0-4.4); Hematocrit 39.7 % (39.6-49.0); Lymphocytes % 21.9 % (15.3-44.8); MCV 91.8 fL (80-100); MPV 7.8 fL (7.6-11.3); Platelets 260 thou/uL (152-406); RBC Red Blood Cell Count 4.32 M/uL (4.33-5.43)
[2023-06-08 09:39] LABS: Bicarbonate 31 mEq/L (21-32); Glomerular Filtration Rate 112 ml/min (=/>90); Glucose Level 118 mg/dL (74-106); Lipase 108 U/L (13-75); Magnesium 2.3 mg/dL (1.6-2.4); Sodium Level 146 mEq/L (136-145)
[2023-06-08 09:40] LABS: BUN Blood Urea Nitrogen < 3 mg/dL (7-18)
[2023-06-09 04:31] LABS: Absolute Basophils 0.1 K/uL (0-0.5); Absolute Eosinophils 0.2 K/uL (0-0.5); Absolute Lymphocytes (CBC) 1.1 K/uL (0.7-4.9); Basophils % 1.1 % (0-1.3); Eosinophils % 3.9 % (0-4.4); Hematocrit 38.5 % (39.6-49.0); Lymphocytes % 21.4 % (15.3-44.8); MCV 91.2 fL (80-100); MPV 8.1 fL (7.6-11.3); Platelets 245 thou/uL (152-406); RBC Red Blood Cell Count 4.22 M/uL (4.33-5.43)
[2023-06-09 04:46] LABS: Anion Gap 7.7 mEq/L (5.0-15.0); Bicarbonate 28 mEq/L (21-32); Glomerular Filtration Rate 110 ml/min (=/>90); Glucose Level 117 mg/dL (74-106); Lipase 61 U/L (13-75); Phosphorus 3.5 mg/dL (2.5-4.9); Potassium 3.7 mEq/L (3.5-5.1); Sodium Level 144 mEq/L (136-145)
[2023-06-09 04:50] LABS: BUN Blood Urea Nitrogen < 3 mg/dL (7-18)
[2023-06-09] MEDS: HYDROMORPHONE HCL 1 MG/ML INJ ONE (06:45)
[2023-06-09 09:23] VITALS: BP 159/88; TEMP 97.3; O2SAT 95
--- NOTE | 2023-06-09 10:36 | P.DS ---
Admission Date: 06/06/23 Discharge Date: 06/09/23 Disposition: ROUTINE DISCHARGE Discharge Condition: FAIR Reason for Admission: Abdominal pain Brief History of Present Illness: Diagnosis Acute on chronic pancreatitis Hyperlipasemia Nausea/ vomiting History of hypothyroidism History of depression HPI 06/05/23 Akin Pugh is a 52-year-old male patient with past medical history significant for chronic pancreatitis came to the ED with complaint of abdominal pain. He had imaging study with a CT of the abdomen shows pelvis that showed inflammation in the head of pancreas and a 2 mm right kidney stone. Lipase is 144. He was admitted for pain control. Other medical issues include hypothyroidism, depression. Hospital Course: Akin Pugh is a pleasant 52 year old male with a past medical history significant for chronic pancreatitis, hypothyroidism, depression who was admitted to the [facility] on 06/05/2023 for acute pancreatitis. Akin presented to the ED with complaints of abdominal pain. CT of the abdomen/pelvis showed inflammation in the head of pancreas and a 2 mm right kidney stone. Lipase was 144 on admission. He has tolerated IV fluids, lipase is trended down to 61 today, he tolerated diet advancement to GI soft without nausea or pain. He is ambulating independently, hemodynamically stable and ready for discharge. On 06/09/2023, Akin was seen on morning rounds and deemed medically stable for discharge. Akin was discharged with instructions to schedule follow-up appointments with PCP and gastrointestinal doctor. No new medications this admission. The patient was given the opportunity to ask questions and reported no further questions. Furthermore, all questions were answered to the best of my ability. A copy of this discharge summary will be sent to the above providers to facilitate continuity of care. Today, I personally spent 50 minutes with Akin, of which greater than 50% of the time was spent in patient education, counseling, and coordination of care as described above. General: AAO x3, NAD HEENT: Conjunctiva not pale, anicteric sclera, tracheostomy Neck: Supple, no elevated JVD Heart: S1 S2 normal, RRR, no pedal edema Lungs: Clear to auscultation bilaterally, adequate breath sounds bilaterally Abdomen: Soft, nondistended, mild abdominal tenderness, normal bowel sounds. Extremities: No tenderness, no deformity Skin: Normal skin turgor, no rash, no nodules or ulcers. Neuro: No focal motor deficit. Normal speech. Psychiatry: Normal mood, no agitation Vital Signs/Physical Exam: Temp Pulse Resp BP Pulse Ox 97.3 F 52 14 159/88 H 98 06/09/23 08:00 06/09/23 08:00 06/09/23 08:00 06/09/23 08:00 06/09/23 08:00 Laboratory Data at Discharge: WBC 5.30 thou/uL (4.3-10.9) 06/09/23 03:50 Hgb 13.0 g/dL (13.6-17.9) L 06/09/23 03:50 Hct 38.5 % (39.6-49.0) L 06/09/23 03:50 Plt Count 245 thou/uL (152-406) 06/09/23 03:50 Sodium 144 mEq/L (136-145) 06/09/23 03:50 Potassium 3.7 mEq/L (3.5-5.1) 06/09/23 03:50 BUN < 3 mg/dL (7-18) L 06/09/23 03:50 Creatinine 0.71 mg/dL (0.70-1.30) 06/09/23 03:50 Glucose 117 mg/dL (74-106) H 06/09/23 03:50 Phosphorus 3.5 mg/dL (2.5-4.9) 06/09/23 03:50 Magnesium 2.0 mg/dL (1.6-2.4) 06/09/23 03:50 Total Bilirubin 0.3 mg/dL (0.2-1.0) 06/04/23 21:09 AST 8 U/L (15-37) L 06/04/23 21:09 ALT 18 U/L (16-61) 06/04/23 21:09 Alkaline Phosphatase 110 U/L (45-117) 06/04/23 21:09 Lipase 61 U/L (13-75) 06/09/23 03:50 Home Medications: Escitalopram [Lexapro*] 20 mg PO DAILY #30 tab 02/16/21 Gabapentin [Neurontin*] 800 mg PO TID 12/11/22 Lipase/Protease/Amylase [Chucho Dr 12,000 Units Capsule] 1 tab PO TID 12/11/22 Levothyroxine [Synthroid*] 0.1 mg PO [id number] 05/14/23 Oxycodone HCl/Acetaminophen [Oxycodone-Acetaminophn 7.5-325] 1 tab PO BID 06/06/23 Pantoprazole Sodium [Protonix] 40 mg PO DAILY 06/06/23 Physician Discharge Instructions: Akin Pugh presented to the ED with chief complaint of abdominal pain. While CT abdomen pelvis showed inflammation of the head of the pancreas and a 2 mm kidney stone. He was placed on IV fluids and Protonix as well as Dilaudid for pain control. He has successfully advanced his diet to GI soft. He has been able to tolerate the advancement without nausea. Pain has improved. Lipase is normal. 1. Please call and schedule a follow-up appointment with your PCP in 3-5 days - Please follow-up with your PCP for medication refills/adjustments 2. Please call and schedule a follow-up appointment with gastrointestinal in two weeks for continued management of pancreatitis 3. Diet: Soft diet and advance as tolerated. 4. No activity restrictions 5. No new medications this admission Diet: Regular Activity: Ad get Followup: Michelle Justice NP [Primary Care Provider] - 1-2 Weeks (call for appointment.) Time spent managing pt's care (in minutes): 50
== END 2023-06-09 10:45 | disposition home or self-care (01) | DRG 440 ==
LOC: ER 20:38 → ERHOLD 06-05 02:40 → 4TH 06-05 03:11 → OBSVTOIN 06-06 18:59
PROVIDERS: ADMIT Internal Medicine Nephrology; ATTEND Internal Medicine
DX: K85.90 Acute pancreatitis without necrosis or infection, unspecified (principal); K86.1 Other chronic pancreatitis; E03.9 Hypothyroidism, unspecified; F32.A Depression, unspecified; J44.9 Chronic obstructive pulmonary disease, unspecified; Z93.0 Tracheostomy status; Z88.1 Allergy status to other antibiotic agents; Z90.49 Acquired absence of other specified parts of digestive tract; Z79.890 Hormone replacement therapy; Z79.899 Other long term (current) drug therapy; Z87.891 Personal history of nicotine dependence; Z91.041 Radiographic dye allergy status; Z91.048 Other nonmedicinal substance allergy status
CPT/HCPCS: 36415; 74176; 80048; 80053; 82947; 83690; 83735; 84100; 85025; 96361; 96374; 96375; 99285; G0378; J1170; J1650; J2405; J2765; J7030

== ENCOUNTER 2023-07-08 03:36 | Inpatient (IN) | payer OTHER ==
[2023-07-08] MEDS ORDERED: ONDANSETRON 4 MG/2 ML VIAL ONE (03:57)
[2023-07-08] MEDS ORDERED: NA CHLORIDE 0.9% 1,000 ML ONE ×2 (03:58→05:06)
[2023-07-08] MEDS ORDERED: MORPHINE 4 MG/ML SYR ONE ×2 (03:58→04:53)
[2023-07-08 04:37] LABS: Absolute Basophils 0.1 K/uL (0-0.5); Absolute Eosinophils 0.2 K/uL (0-0.5); Absolute Lymphocytes (CBC) 1.6 K/uL (0.7-4.9); Absolute Monocytes 0.7 K/uL (0.1-1.3); Absolute Neutrophil 6.3 K/uL (1.8-8.0); Basophils % 0.9 % (0-1.3); Eosinophils % 2.1 % (0-4.4); Hematocrit 37.2 % (39.6-49.0); Hemoglobin 12.6 g/dL (13.6-17.9); Lymphocytes % 17.9 % (15.3-44.8); MCH 30.6 pg (27.0-35.0); MCHC 33.8 g/dL (32.0-36.0); MCV 90.3 fL (80-100); MPV 7.9 fL (7.6-11.3); Monocytes % 7.8 % (3.3-12.3); Neutrophils % 71.3 % (41.7-73.7); Platelets 320 thou/uL (152-406); RBC Red Blood Cell Count 4.12 M/uL (4.33-5.43); Red Cell Distribution Width 14.4 % (12.1-15.2)
[2023-07-08 04:49] LABS: Albumin 3.5 g/dL (3.4-5.0); Anion Gap 10.1 mEq/L (5.0-15.0); Bilirubin Total 0.4 mg/dL (0.2-1.0); Globulin 3.5 g/dL (2.3-3.5); Potassium 3.1 mEq/L (3.5-5.1)
--- NOTE | 2023-07-08 04:56 | EDPHYS ---
Physician Documentation [facility] Name: Akin Pugh Age: 53 yrs Sex: Male : 1970 Arrival Date: 07/08/2023 Time: 03:36 Bed 17 Private MD: ED Physician Connor Peña HPI: 07/07 04:12 This 53 yrs old Male presents to ER via Ambulatory with complaints of chronic illness. rt 04:12 Patient with history of chronic pancreatitis presents to the ED with 3 days of rt epigastric pain as well as nausea, vomiting consistent with prior episodes that is. His pain has not been adequately relieved with pain medications at home. Denies other acute complaints at this time, symptoms are moderate in severity, no other aggravating or alleviating factors.. Historical: - Allergies: 03:50 Iodine; jb4 03:50 Ampicillin; jb4 03:50 Iodinated Contrast Media - IV Dye; jb4 03:50 Levaquin; jb4 - PMHx: 03:50 Asthma; COPD; Pancreatitis; THROAT CA; jb4 - PSHx: 03:50 Laryngectomy; tracheostomy; jb4 - Immunization history:: Adult Immunizations up to date. - Infectious Disease History:: Denies. - Social history:: Smoking status: Patient denies any tobacco usage or history of. ROS: 04:12 Constitutional: Negative for fever, chills, and weight loss, Cardiovascular: Negative rt for chest pain, palpitations, and edema, Respiratory: Negative for shortness of breath, cough, wheezing, and pleuritic chest pain, MS/Extremity: Negative for injury and deformity, Skin: Negative for injury, rash, and discoloration, Neuro: Negative for headache, weakness, numbness, tingling, and seizure, 04:12 Abdomen/GI: Positive for abdominal pain, nausea and vomiting, Exam: 04:12 Constitutional: This is a well developed, well nourished patient who is awake, alert, rt and in no acute distress. Head/Face: Normocephalic, atraumatic. Chest/axilla: Normal chest wall appearance and motion. Nontender with no deformity. No lesions are appreciated. Cardiovascular: Regular rate and rhythm with a normal S1 and S2. No gallops, murmurs, or rubs. Normal PMI, no JVD. No pulse deficits. Respiratory: Lungs have equal breath sounds bilaterally, clear to auscultation and percussion. No rales, rhonchi or wheezes noted. No increased work of breathing, no retractions or nasal flaring. Skin: Warm, dry with normal turgor. Normal color with no rashes, no lesions, and no evidence of cellulitis. MS/ Extremity: Pulses equal, no cyanosis. Neurovascular intact. Full, normal range of motion. 04:12 Abdomen/GI: Tenderness to the epigastrium without rebound, guarding, distention, Vital Signs: 03:47 BP 145 / 82; Pulse 73; Resp 16; Temp 98.2(TE); Pulse Ox 99% on R/A; Weight 79.38 kg jb4 (R); Height 5 ft. 11 in. (R); 04:35 BP 130 / 72; Pulse 61; Resp 18; Temp 98.2; Pulse Ox 99% on R/A; bm8 04:57 BP 135 / 77; Pulse 63; Resp 18; Temp 98.2; Pulse Ox 96% ; Pain 6/10; bm8 06:24 BP 114 / 65; Pulse 65; Resp 19; Temp 97.8; Pulse Ox 99% ; Pain 4/10; bm8 03:47 Body Mass Index 24.41 (79.38 kg, 180.34 cm) jb4 04:57 Pain Scale: Adult bm8 06:24 Pain Scale: Adult bm8 [place] Coma Score: 04:35 Eye Response: spontaneous(4). Motor Response: obeys commands(6). Verbal Response: bm8 oriented(5). Total: 15. MDM: 03:52 Patient medically screened. rt 04:57 Differential Diagnosis Pancreatitis. Data reviewed: vital signs, nurses notes, lab test rt result(s). Consideration of Admission/Observation Patient was admitted/placed on observation. Management of patient was discussed with the following: Hospitalist: Agrees to admit. I considered the following discharge prescriptions or medication management in the emergency department Medications were administered in the Emergency Department. See MAR. Independent interpretation of the following test(s) in the Emergency Department CT Scan: My interpretation is Patient has had more than 10 CT scans within the past year, this consistent with prior episodes of pancreatitis, labs are consistent with prior episodes of pancreatitis. Will hold on CT scan to spare patient radiation exposure.. Care significantly affected by the following chronic conditions: Chronic pancreatitis. Counseling: I had a detailed discussion with the patient and/or guardian regarding the historical points, exam findings, and any diagnostic results supporting the discharge/admit diagnosis, lab results, the need for further work-up and treatment in the hospital. Response to treatment: the patient's symptoms have mildly improved after treatment. 07/07 03:55 Order name: CBC with Diff; Complete Time: 04:48 rt 07/07 03:55 Order name: CMP; Complete Time: 04:50 rt 07/07 03:55 Order name: Lipase; Complete Time: 04:50 rt 07/07 05:19 Order name: Urinalysis w/ reflexes EDMS 07/07 05:19 Order name: CBC with Automated Diff EDMS 07/07 05:19 Order name: CBC with Automated Diff EDMS 07/07 05:19 Order name: Comprehensive Metabolic Panel EDMS 07/07 05:19 Order name: Comprehensive Metabolic Panel EDMS 07/07 03:55 Order name: IV Saline Lock; Complete Time: 04:01 rt 07/07 03:55 Order name: Labs collected and sent; Complete Time: 04:01 rt Administered Medications: 04:33 Drug: NS 0.9% IV 1000 ml IV at 1 bolus Per protocol; 1000 mL bolus Route: IV; Rate: 1 bm8 bolus; Site: right forearm; 05:03 Follow up: Response: No adverse reaction; IV Status: Completed infusion; IV Intake: bm8 1000ml 04:34 Drug: Ondansetron IVP 4 mg IVP once; over 2 minutes Route: IVP; Site: right forearm; bm8 05:03 Follow up: Response: No adverse reaction bm8 04:34 Drug: morphine IVP or IV 4 mg IVP once over 4 mins Route: IVP; Infused Over: 4 mins; bm8 Site: right forearm; 05:03 Follow up: Response: No adverse reaction bm8 04:54 Drug: morphine IVP or IV 4 mg IVP once over 4 mins Route: IVP; Infused Over: 4 mins; bm8 Site: right forearm; 05:03 Follow up: Response: Pain is decreased bm8 05:06 Drug: NS 0.9% IV 1000 ml IV at 1 bolus Per protocol; 1000 mL bolus Route: IV; Rate: 1 bm8 bolus; Site: right forearm; 06:25 Follow up: Response: No adverse reaction; IV Status: Infusion continued; IV Intake: bm8 1000ml 05:07 Drug: Potassium Chloride IV 20 mEq IV at calculated rate once; administer over 1-2 bm8 hours Route: IV; Rate: calculated rate; Site: right forearm; :25 Follow up: Response: No adverse reaction; IV Status: Infusion continued; IV Intake: bm8 100ml Disposition Summary: 07/08/23 04:55 Hospitalization Ordered Notes: Hospitalization Status: Observation rt Provider: Jasbir Saini rt Condition: Stable rt Problem: an acute exacerbation rt Symptoms: have improved rt Bed/Room Type: Standard rt Location: Telemetry/MedSurg (observation)(07/08/23 07:41) bd Room Assignment: 425(07/08/23 07:41) bd Diagnosis - Acute on chronic pancreatitis rt Forms: - Medication Reconciliation Form rt - SBAR form rt - Leadership Thank You Letter rt Signatures: Dispatcher [employer] EDMS Sherry Garner bd Noah Dueñas, RN RN jb4 Connor Peña MD MD rt Melissa Avilez rv1 Macario Green, RN RN bm8 Corrections: (The following items were deleted from the chart) 04:59 04:55 Telemetry/MedSurg (observation) rt rv1 04:59 04:55 rt rv1 07:41 04:59 [facility] ER HOLD rv1 bd 07:41 04:59 ERHOLD- rv1 bd
--- NOTE | 2023-07-08 04:56 | ER ---
Nurse's Notes [facility] Name: Akin Pugh Age: 53 yrs Sex: Male : 1970 Arrival Date: 07/08/2023 Time: 03:36 Bed 17 Private MD: Diagnosis: Acute on chronic pancreatitis Presentation: 07/07 03:47 Chief complaint: Patient states: I have chronic pancreatitis , this episode started 2 jb4 days ago and has been getting worse. I have been vomiting and having diarrhea. Coronavirus screen: At this time, the client does not indicate any symptoms associated with coronavirus-19. Ebola Screen: No symptoms or risks identified at this time. Initial Sepsis Screen: Does the patient meet any 2 criteria? No. Patient's initial sepsis screen is negative. Does the patient have a suspected source of infection? No. Patient's initial sepsis screen is negative. Risk Assessment: Do you want to hurt yourself or someone else? Patient reports no desire to harm self or others. Onset of symptoms was July 08, 2023. Transition of care: patient was not received from another setting of care. 03:47 Method Of Arrival: Ambulatory jb4 03:47 Acuity: PAO 3 jb4 Triage Assessment: 03:50 General: Appears in no apparent distress. uncomfortable, Behavior is calm, cooperative, jb4 appropriate for age. Pain: Complains of pain in abdomen Pain does not radiate. Pain currently is 8 out of 10 on a pain scale. Neuro: Level of Consciousness is awake, alert, obeys commands, Oriented to person, place, time, situation. Cardiovascular: Patient's skin is warm and dry. Respiratory: Airway is patent Respiratory effort is even, unlabored, Respiratory pattern is regular, symmetrical. GI: Abdomen is round non-distended, Reports upper abdominal pain, diarrhea, nausea, vomiting. Derm: Skin is intact, Skin is pink, warm \T\ dry. Historical: - Allergies: 03:50 Iodine; jb4 03:50 Ampicillin; jb4 03:50 Iodinated Contrast Media - IV Dye; jb4 03:50 Levaquin; jb4 - PMHx: 03:50 Asthma; COPD; Pancreatitis; THROAT CA; jb4 - PSHx: 03:50 Laryngectomy; tracheostomy; jb4 - Immunization history:: Adult Immunizations up to date. - Infectious Disease History:: Denies. - Social history:: Smoking status: Patient denies any tobacco usage or history of. Screenin:36 [facility] ED Fall Risk Assessment (Adult) History of falling in the last 3 months, bm8 including since admission No falls in past 3 months (0 pts) Confusion or Disorientation No (0 pts) Intoxicated or Sedated No (0 pts) Impaired Gait No (0 pts) Mobility Assist Device Used No (0 pt) Altered Elimination No (0 pt) Score/Fall Risk Level 0 - 2 = Low Risk Oriented to surroundings, Maintained a safe environment, Educated pt \T\ family on fall prevention, incl call for assistance when getting out of bed. Abuse screen: Denies threats or abuse. Nutritional screening: No deficits noted. Tuberculosis screening: No symptoms or risk factors identified. Assessment: 04:57 Reassessment: Patient appears in no apparent distress at this time. Patient and/or bm8 family updated on plan of care and expected duration. Pain level reassessed. Patient is alert, oriented x 3, equal unlabored respirations, skin warm/dry/pink. Patient states symptoms have improved. General: Appears in no apparent distress. comfortable, Behavior is calm, cooperative, appropriate for age. Pain: Complains of pain in right upper quadrant and left upper quadrant Pain does not radiate. Pain currently is 6 out of 10 on a pain scale. Quality of pain is described as sharp. Neuro: Level of Consciousness is awake, alert, obeys commands, Oriented to person, place, time, situation, Appropriate for age. Cardiovascular: Denies chest pain, shortness of breath, Capillary refill < 3 seconds Patient's skin is warm and dry. Respiratory: Airway is patent via trache Respiratory effort is even, unlabored, Respiratory pattern is Breath sounds are clear bilaterally. GI: Abdomen is flat, distended, Abdomen is tender to palpation in right upper quadrant and left upper quadrant Reports upper abdominal pain. : No deficits noted. No signs and/or symptoms were reported regarding the genitourinary system. EENT: No deficits noted. No signs and/or symptoms were reported regarding the EENT system. Derm: No deficits noted. No signs and/or symptoms reported regarding the dermatologic system. Musculoskeletal: No deficits noted. No signs and/or symptoms reported regarding the musculoskeletal system. Vital Signs: 03:47 BP 145 / 82; Pulse 73; Resp 16; Temp 98.2(TE); Pulse Ox 99% on R/A; Weight 79.38 kg jb4 (R); Height 5 ft. 11 in. (R); 04:35 BP 130 / 72; Pulse 61; Resp 18; Temp 98.2; Pulse Ox 99% on R/A; bm8 04:57 BP 135 / 77; Pulse 63; Resp 18; Temp 98.2; Pulse Ox 96% ; Pain 6/10; bm8 06:24 BP 114 / 65; Pulse 65; Resp 19; Temp 97.8; Pulse Ox 99% ; Pain 4/10; bm8 03:47 Body Mass Index 24.41 (79.38 kg, 180.34 cm) jb4 04:57 Pain Scale: Adult bm8 06:24 Pain Scale: Adult bm8 [place] Coma Score: 04:35 Eye Response: spontaneous(4). Motor Response: obeys commands(6). Verbal Response: bm8 oriented(5). Total: 15. ED Course: 03:38 Patient arrived in ED. ra3 03:47 Connor Peña MD is Attending Physician. rt 03:50 Triage completed. jb4 03:50 Arm band placed on right wrist. jb4 03:50 Inserted saline lock: 20 gauge in right forearm, using aseptic technique. Blood bm8 collected. 03:56 Macario Green, RN is Primary Nurse. bm8 04:01 CBC with Diff Sent. km8 04:01 CMP Sent. km8 04:02 Lipase Sent. km8 04:02 Initial lab(s) drawn, by ED staff, sent to lab. km8 04:36 Fall risk band placed. Bed in low position. Call light in reach. Side rails up X 1. bm8 Client placed on continuous cardiac and pulse oximetry monitoring. NIBP monitoring applied. Pulse ox on. NIBP on. Door closed. Noise minimized. Visitors limited. Verbal reassurance given. Head of bed elevated. 04:36 No provider procedures requiring assistance completed. bm8 04:55 Jasbir Saini MD is Hospitalizing Provider. rt 06:24 Provided Education on: need for admit. bm8 06:24 Patient admitted, IV remains in place. bm8 Administered Medications: 04:33 Drug: NS 0.9% IV 1000 ml IV at 1 bolus Per protocol; 1000 mL bolus Route: IV; Rate: 1 bm8 bolus; Site: right forearm; 05:03 Follow up: Response: No adverse reaction; IV Status: Completed infusion; IV Intake: bm8 1000ml 04:34 Drug: Ondansetron IVP 4 mg IVP once; over 2 minutes Route: IVP; Site: right forearm; bm8 05:03 Follow up: Response: No adverse reaction bm8 04:34 Drug: morphine IVP or IV 4 mg IVP once over 4 mins Route: IVP; Infused Over: 4 mins; bm8 Site: right forearm; 05:03 Follow up: Response: No adverse reaction bm8 04:54 Drug: morphine IVP or IV 4 mg IVP once over 4 mins Route: IVP; Infused Over: 4 mins; bm8 Site: right forearm; 05:03 Follow up: Response: Pain is decreased bm8 05:06 Drug: NS 0.9% IV 1000 ml IV at 1 bolus Per protocol; 1000 mL bolus Route: IV; Rate: 1 bm8 bolus; Site: right forearm; 06:25 Follow up: Response: No adverse reaction; IV Status: Infusion continued; IV Intake: bm8 1000ml 05:07 Drug: Potassium Chloride IV 20 mEq IV at calculated rate once; administer over 1-2 bm8 hours Route: IV; Rate: calculated rate; Site: right forearm; 06:25 Follow up: Response: No adverse reaction; IV Status: Infusion continued; IV Intake: bm8 100ml Medication: 04:36 VIS not applicable for this client. bm8 Intake: 05:03 IV: 1000ml; Total: 1000ml. bm8 06:25 IV: 1000ml; Total: 2000ml. bm8 06:25 IV: 100ml; Total: 2100ml. bm8 Outcome: 04:55 Decision to Hospitalize by Provider. rt 06:23 Admitted to ER Hold. Please see [facility] for further documentation. bm8 06:23 Condition: stable 06:23 Instructed on the need for admit, Demonstrated understanding of instructions, follow-up care, medications, 08:37 Patient left the ED. ld1 Signatures: Noah Dueñas RN RN jb4 Jesenia Falcon RN RN ld1 Connor Peña MD MD rt Michelle Espinal RN RN km8 Kesha Wharton 3 Macario Green RN RN bm8
[2023-07-08] MEDS ORDERED: KCL 20 MEQ/100 mL IVPB 100 ML IV ONE (05:06)
--- NOTE | 2023-07-08 05:06 | P.HP ---
Certification for Inpatient Patient admitted to: Inpatient With expected LOS: >2 Midnights Practitioner: I am a practitioner with admitting privileges, knowledge of patient current condition, hospital course, and medical plan of care. Services: Services provided to patient in accordance with Admission requirements found in Title 42 Section 412.3 of the Code of Federal Regulations Patient History Date of Service: 07/08/23 Reason for admission: Abdominal Pain History of Present Illness: 53 yrs old Male with past medical history of asthma; COPD; chronic pancreatitis; and history of throat cancer came in with abdominal pain which has been progressively worsening over the last 3 days. Pain is sharp epigastric in location associate with nausea vomiting. Similar to the previous episodes of pancreatitis. Denies any fever or chills. Denies any sick contacts. No aggravating or alleviating factors. Patient states that the pain is not relieved by the home medications and pain medications hence was brought to the ER. Patient was assessed in the ER and was admitted for acute on chronic pancreatitis Allergies levofloxacin [From Levaquin] Allergy (Severe, Verified 02/05/23 01:24) Itching/Hives/Rash ampicillin Allergy (Verified 02/05/23 01:24) Itching/Hives/Rash iodine Allergy (Verified 02/05/23 01:24) Hives/Rash Home medications list reviewed: Yes Home Medications: Escitalopram [Lexapro*] 20 mg PO DAILY #30 tab 02/16/21 Gabapentin [Neurontin*] 800 mg PO TID 12/11/22 Lipase/Protease/Amylase [Creon Dr 12,000 Units Capsule] 1 tab PO TID 12/11/22 Levothyroxine [Synthroid*] 0.1 mg PO [id number] 05/14/23 Oxycodone HCl/Acetaminophen [Oxycodone-Acetaminophn 7.5-325] 1 tab PO BID 06/06/23 Pantoprazole Sodium [Protonix] 40 mg PO DAILY 06/06/23 - Past Medical/Surgical History Diabetic: No Past Medical History: Reviewed- Non-Contributory -: Asthma -: Depression -: Throat cancer status post complete laryngectomy/reconstruction 06/2018 -: Recurrent postop infection -: Chronic pain -: Former tobacco use -: Surgical hypothyroidism -: neuropathy -: Pancreatitis/duodenitis Past Surgical History: Reviewed- Non-Contributory -: Tracheostomy -: Appendectomy -: Complete laryngectomy with reconstruction -: knee surgery bilateral knees -: Thyroidectomy Psychosocial/ Personal History: Patient is . He has 3 children. - Family History Family History: Reviewed- Non-Contributory - Family History Father -: Heart disease, Diabetes Notes: agent orange: immobile Mother -: Cancer Notes: breast ca - Social History Smoking Status: Never smoker Alcohol use: No CD- Drugs: No Caffeine use: Yes Review of Systems 10-point ROS is otherwise unremarkable Physical Examination - Vital Signs Temperature: 97.8 F Blood Pressure: 126/78 Pulse: 76 Respirations: 18 Pulse Ox (%): 96 - Physical Exam General: Alert, In no apparent distress, Oriented x3 HEENT: Atraumatic, Normocephalic Neck: Supple, JVD not distended, No Thyromegaly Respiratory: Clear to auscultation bilaterally, Normal air movement Cardiovascular: No edema, Regular rate/rhythm, Normal S1 S2 Capillary refill: <2 Seconds Gastrointestinal: Soft and benign, W/out hepatosplenomegaly, Tenderness Musculoskeletal: No clubbing, No swelling Integumentary: No rashes, No tenderness/swelling, No erythema, No warmth Neurological: Normal speech, Normal strength at 5/5 x4 extr, Cranial nerves 3-12 intact, Normal reflexes 2+, Normal affect Lymphatics: No axilla or inguinal lymphadenopathy - Studies Laboratory Data (last 24 hrs) 07/08/23 07/08/23 04:00 04:00 WBC 8.80 Hgb 12.6 L Hct 37.2 L Plt Count 320 Sodium 139 Potassium 3.1 L BUN 5 L Creatinine 0.91 Glucose 112 H Total Bilirubin 0.4 AST 12 L ALT 16 Alkaline Phosphatase 117 Lipase 240 H Assessment and Plan - Problems (Diagnosis) (1) Acute on chronic pancreatitis Current Visit: No Status: Acute Plan: Monitor closely under telemetry N.p.o. for now IV hydration Pain control Continue home medications cellulitis of the started Will trend lipase Patient had multiple CTs in the past Monitor LFTs (2) Hypokalemia Current Visit: Yes Status: Acute Plan: Potassium supplementation Monitor under telemetry (3) Hypothyroid Current Visit: No Status: Chronic Plan: Continue home medications (4) Duodenitis Current Visit: No Status: Chronic Plan: Continue protonix (5) COPD (chronic obstructive pulmonary disease) Onset Date: 10/14/17 Current Visit: No Status: Chronic Plan: Continue home medications Qualifiers: - Advance Directives Does patient have a Living Will: Yes Does patient have a Durable POA for Healthcare: Yes - Code Status/Comfort Care Code Status: Full Code Time Spent Managing Pts Care (In Minutes): 56
[2023-07-08] MEDS ORDERED: ACETAMINOPHEN 500 MG TAB PO PRN (05:14)
[2023-07-08] MEDS: LEVOTHYROXINE SOD 0.1 MG TAB PO SCH (06:00)
[2023-07-08] MEDS: Ringers Lactate 1,000 ML IV SCH (06:00)
[2023-07-08 06:30] VITALS: BMI 24.4
[2023-07-08] MEDS: PANTOPRAZOLE 40MG TABLET PO SCH (07:30)
[2023-07-08] MEDS ORDERED: PANTOPRAZOLE 40MG TABLET PO ONE (07:38)
[2023-07-08] MEDS: LIPASE/PROTEASE/AMYLASE CAP PO SCH (08:00)
[2023-07-08] MEDS: GABAPENTIN 400 MG CAP PO SCH (09:46)
[2023-07-08] MEDS: Oxycodone HCl/Acetaminophen 5/325 MG TAB PO SCH (09:46)
[2023-07-08] MEDS: HEPARIN 5000 UNIT/ML 1 ML VIAL SQ SCH (09:47)
[2023-07-08] MEDS: ESCITALOPRAM 20 MG TAB PO SCH (09:48)
--- NOTE | 2023-07-08 15:46 | P.PN ---
Date of Service: 07/08/23 Patient seen and examined. He is complaining of abdominal pain, nausea and vomiting. He has been afebrile. Acute on chronic pancreatitis. Supportive measures, IV hydration. N.p.o. today Analgesics as needed Daily lipase.
[2023-07-08] MEDS: MORPHINE 2 MG/ML SYR IV PRN (16:09)
[2023-07-08 16:26] LABS: Specific Gravity 1.007 (1.005-1.030); Urine Bilirubin NEGATIVE (Negative); Urine Blood Negative (Negative); Urine Clarity Clear (Clear); Urine Color Light-Yellow (Yellow); Urine Glucose NEGATIVE (Negative); Urine Ketones NEGATIVE (Negative); Urine Microscopic Reflex YN NO UMIC; Urine Nitrite NEGATIVE (Negative); Urine Protein NEGATIVE (Negative); Urine Urobilinogen Normal (Normal)
[2023-07-09 06:58] LABS: Absolute Basophils 0.1 K/uL (0-0.5); Absolute Eosinophils 0.2 K/uL (0-0.5); Absolute Lymphocytes (CBC) 1.1 K/uL (0.7-4.9); Absolute Monocytes 0.4 K/uL (0.1-1.3); Absolute Neutrophil 3.7 K/uL (1.8-8.0); Basophils % 1.4 % (0-1.3); Eosinophils % 3.9 % (0-4.4); Hematocrit 37.1 % (39.6-49.0); Hemoglobin 12.5 g/dL (13.6-17.9); Lymphocytes % 19.3 % (15.3-44.8); MCH 30.7 pg (27.0-35.0); MCHC 33.8 g/dL (32.0-36.0); MCV 90.7 fL (80-100); MPV 7.8 fL (7.6-11.3); Monocytes % 7.7 % (3.3-12.3); Neutrophils % 67.7 % (41.7-73.7); Platelets 271 thou/uL (152-406); RBC Red Blood Cell Count 4.08 M/uL (4.33-5.43); Red Cell Distribution Width 14.3 % (12.1-15.2)
[2023-07-09 07:42] LABS: Albumin 2.6 g/dL (3.4-5.0); Albumin/Globulin Ratio 0.9 (1.1-1.8); Anion Gap 4.7 mEq/L (5.0-15.0); Bilirubin Total 0.5 mg/dL (0.2-1.0); Globulin 2.9 g/dL (2.3-3.5); Magnesium 2.2 mg/dL (1.6-2.4); Phosphorus 3.3 mg/dL (2.5-4.9); Potassium 3.7 mEq/L (3.5-5.1); Protein, Total 5.5 g/dL (6.4-8.2)
--- NOTE | 2023-07-09 08:33 | P.PN ---
Date of Service: 07/09/23 Subjective: Feeling better today abdominal pain / discomfort still moderate, but improving tolerating sips of water overnight reports acute episode similar to past hospitalizations no new/worsening symptoms ROS: 10 point ROS as noted above, otherwise negative Physical Exam: GEN: Alert, oriented, NAD HEENT: Normal conjunctiva, sclera anicteric, CV: Regular rate and rhythm, no edema Pulm: Nonlabored respirations on room air, clear bilaterally ABD: soft, moderate epigastric tenderness, nondistended Problem List: Acute on chronic pancreatitis Abdominal Pain with nausea/vomiting secondary to pancreatitis h/o laryngeal cancer s/p laryngectomy with reconstruction and tracheostomy COPD, chronic Depression Hypothyroidism Tobacco use Acute on chronic pancreatitis Abdominal Pain with nausea/vomiting secondary to pancreatitis reports abdominal pain with nausea/vomiting x3 days. Similar symptoms to previous episodes Patient with multiple imaging over the last year. CT from last month with mild acute pancreatitis / similar findings to past hospitalizations. CT this time in ER and admission deferred clear liquids for lunch; advance diet as tolerated up to full liquids today continue IV fluids for now PRN analgesics / antiemetics lipase 240 on admission; now resolved (07/08) slight bump to AST 4/ continue PPI abdominal discomfort improving h/o laryngeal cancer s/p laryngectomy with reconstruction and tracheostomy COPD, chronic Continue supportive care. Continue home meds as appropriate Depression Hypothyroidism continue home lexapro, synthroid Tobacco use Counseled on need for tobacco cessation VTE: heparin sq Code: Full Dispo: Home, ~1-2 day
[2023-07-09] MEDS: POTASSIUM 25 MEQ EFFERV TAB PO ONE (12:33)
[2023-07-09] MEDS: Ringers Lactate 1,000 ML IV SCH (13:38)
[2023-07-09] MEDS: ONDANSETRON 4 MG/2 ML VIAL IV PRN (17:48)
[2023-07-10 05:12] LABS: Albumin 2.7 g/dL (3.4-5.0); Albumin/Globulin Ratio 0.9 (1.1-1.8); Anion Gap 4.6 mEq/L (5.0-15.0); Bilirubin Total 0.3 mg/dL (0.2-1.0); Magnesium 2.3 mg/dL (1.6-2.4); Potassium 3.6 mEq/L (3.5-5.1); Protein, Total 5.7 g/dL (6.4-8.2)
[2023-07-10] MEDS: POTASSIUM CL SA 10 MEQ TAB PO ONE (08:45)
--- NOTE | 2023-07-10 09:01 | P.PN ---
Date of Service: 07/10/23 Subjective: Feeling some improvement today tolerated clear liquids yesterday abdomen doesn't feel as tender. abd discomfort/pain improving no new / worsening problems ROS: 10 point ROS as noted above, otherwise negative Physical Exam: GEN: Alert, oriented, NAD HEENT: Normal conjunctiva, sclera anicteric, CV: Regular rate and rhythm, no edema Pulm: Nonlabored respirations on room air, clear bilaterally ABD: soft, mild epigastric tenderness, nondistended Problem List: Acute on chronic pancreatitis Abdominal Pain with nausea/vomiting secondary to pancreatitis h/o laryngeal cancer s/p laryngectomy with reconstruction and tracheostomy COPD, chronic Depression Hypothyroidism Tobacco use Acute on chronic pancreatitis Abdominal Pain with nausea/vomiting secondary to pancreatitis reported abdominal pain with nausea/vomiting x3 days. Similar symptoms to previous episodes multiple imaging over the last year. CT from last month with mild acute pancreatitis / similar findings to past hospitalizations. CT this time in ER and admission deferred tolerated liquids; advance to low fat diet this afternoon possible dc this evening vs tomorrow if tolerates diet lipase 240 on admission; now resolved (07/08) AST improved dc IVF PRN analgesics / antiemetics abdominal discomfort improving h/o laryngeal cancer s/p laryngectomy with reconstruction and tracheostomy COPD, chronic Continue supportive care. Continue home meds as appropriate Depression Hypothyroidism continue home lexapro, synthroid Tobacco use Counseled on need for tobacco cessation VTE: heparin sq Code: Full Dispo: Home, later this evening vs tomorrow morning pending able to tolerate diet without issues
[2023-07-10 22:43] VITALS: O2SAT 97
[2023-07-11 04:41] LABS: Albumin 2.8 g/dL (3.4-5.0); Albumin/Globulin Ratio 0.8 (1.1-1.8); Anion Gap 5.5 mEq/L (5.0-15.0); Bilirubin Total 0.5 mg/dL (0.2-1.0); Globulin 3.3 g/dL (2.3-3.5); Magnesium 2.3 mg/dL (1.6-2.4); Potassium 3.5 mEq/L (3.5-5.1); Protein, Total 6.1 g/dL (6.4-8.2)
[2023-07-11] MEDS: POTASSIUM CL SA 10 MEQ TAB PO ONE (08:15)
--- NOTE | 2023-07-11 11:17 | P.PN ---
Date of Service: 07/11/23 Subjective: episodes of nausea/vomiting overnight wants to try same diet again for breakfast before considering backing down to liquids otherwise no new problems ROS: 10 point ROS as noted above, otherwise negative Physical Exam: GEN: Alert, oriented, NAD HEENT: Normal conjunctiva, sclera anicteric, CV: Regular rate and rhythm, no edema Pulm: Nonlabored respirations on room air, clear bilaterally ABD: soft, mild epigastric tenderness, nondistended Problem List: Acute on chronic pancreatitis Abdominal Pain with nausea/vomiting secondary to pancreatitis h/o laryngeal cancer s/p laryngectomy with reconstruction and tracheostomy COPD, chronic Depression Hypothyroidism Tobacco use Acute on chronic pancreatitis Abdominal Pain with nausea/vomiting secondary to pancreatitis reported abdominal pain with nausea/vomiting x3 days. Similar symptoms to previous episodes multiple imaging over the last year. CT from last month with mild acute pancreatitis / similar findings to past hospitalizations. CT this time in ER and admission deferred tolerated liquids; reports nausea/vomiting after low fat diet yesterday possible dc this evening vs tomorrow if tolerates diet lipase 240 on admission; now resolved (07/08) AST improved PRN analgesics / antiemetics abdominal discomfort improving h/o laryngeal cancer s/p laryngectomy with reconstruction and tracheostomy COPD, chronic Continue supportive care. Continue home meds as appropriate Depression Hypothyroidism continue home lexapro, synthroid Tobacco use Counseled on need for tobacco cessation VTE: heparin sq Code: Full Dispo: Home, later this evening vs tomorrow morning pending able to tolerate diet without issues
[2023-07-11 12:38] VITALS: BP 118/62; TEMP 97.6
--- NOTE | 2023-07-12 06:47 | P.DS ---
Admission Date: 07/08/23 Discharge Date: 07/11/23 Disposition: ROUTINE DISCHARGE Discharge Condition: GOOD Reason for Admission: Abdominal Pain Brief History of Present Illness: 53yo M, PMH: asthma; COPD; chronic pancreatitis; and history of throat cancer Patient came in with abdominal pain which has been progressively worsening over the last 3 days. Pain is sharp epigastric in location associate with nausea vomiting. Similar to the previous episodes of pancreatitis. Denies any fever or chills. Denies any sick contacts. No aggravating or alleviating factors. Patient states that the pain is not relieved by the home medications and pain medications hence was brought to the ER. Patient was assessed in the ER and was admitted for acute on chronic pancreatitis Hospital Course: Problem List: Acute on chronic pancreatitis Abdominal Pain with nausea/vomiting secondary to pancreatitis h/o laryngeal cancer s/p laryngectomy with reconstruction and tracheostomy COPD, chronic Depression Hypothyroidism Tobacco use Patient presented with worsening abdominal pain, nausea, vomiting and was found to have acute on chronic pancreatitis. Lipase was [address] deffered this admission given recent imaging. Patient had improvement with IV fluids, bowel rest, and lipase quickly returned to normal within 24 hours. Patients diet was slowly advanced and patient continued to improve. Patient was feeling better, abdominal discomfort improving, nausea/vomiting resolved, and was deemed stable for discharge. Patient was tolerating regular low fat diet on day of discharge. He reported having all his medications at home and no prescriptions needed on discharge. He states he has follow up with GI later this month. Lipase on discharge: 70 Medications: continue home meds as previously prescribed. Follow up: PCP 3-5 days GI as scheduled. Physical Exam: GEN: Alert, oriented, NAD HEENT: Normal conjunctiva, sclera anicteric, CV: Regular rate and rhythm, no edema Pulm: Nonlabored respirations on room air, clear bilaterally ABD: soft, no tenderness, nondistended MSK: No joint tenderness Integumentary: No rashes Neuro: Normal speech, normal affect Vital Signs/Physical Exam: Temp Pulse Resp BP Pulse Ox 97.6 F 77 14 118/62 94 07/11/23 12:00 07/11/23 12:00 07/11/23 12:00 07/11/23 12:00 07/11/23 12:00 Laboratory Data at Discharge: WBC 5.50 thou/uL (4.3-10.9) 04/09/24 06:15 Hgb 12.5 g/dL (13.6-17.9) L 07/09/23 06:15 Hct 37.1 % (39.6-49.0) L 07/09/23 06:15 Plt Count 271 thou/uL (152-406) 07/09/23 06:15 Sodium 140 mEq/L (136-145) 07/11/23 03:44 Potassium 3.5 mEq/L (3.5-5.1) 07/11/23 03:44 BUN 4 mg/dL (7-18) L 07/11/23 03:44 Creatinine 0.89 mg/dL (0.70-1.30) 07/11/23 03:44 Glucose 95 mg/dL (74-106) 07/11/23 03:44 Phosphorus 3.3 mg/dL (2.5-4.9) 07/09/23 06:15 Magnesium 2.3 mg/dL (1.6-2.4) 07/11/23 03:44 Total Bilirubin 0.5 mg/dL (0.2-1.0) 07/11/23 03:44 AST 22 U/L (15-37) 07/11/23 03:44 ALT 35 U/L (16-61) 07/11/23 03:44 Alkaline Phosphatase 169 U/L (45-117) H 07/11/23 03:44 Lipase 70 U/L (13-75) 07/11/23 03:44 Home Medications: Escitalopram [Lexapro*] 20 mg PO DAILY #30 tab 02/16/21 Gabapentin [Neurontin*] 800 mg PO TID 12/11/22 Lipase/Protease/Amylase [Creon Dr 12,000 Units Capsule] 1 tab PO TID 12/11/22 Levothyroxine [Synthroid*] 0.1 mg PO [id number] 05/14/23 Oxycodone HCl/Acetaminophen [Oxycodone-Acetaminophn 7.5-325] 1 tab PO BID 06/06/23 Pantoprazole Sodium [Protonix] 40 mg PO DAILY 06/06/23 Physician Discharge Instructions: Physician Discharge instructions: Patient presented with worsening abdominal pain, nausea, vomiting and was found to have acute on chronic pancreatitis. Lipase was [address] deffered this admission given recent imaging. Patient had improvement with IV fluids, bowel rest, and lipase quickly returned to normal within 24 hours. Patients diet was slowly advanced and patient continued to improve. Patient was feeling better, abdominal discomfort improving, nausea/vomiting resolved, and was deemed stable for discharge. Patient was tolerating regular low fat diet on day of discharge. He reported having all his medications at home and no prescriptions needed on discharge. He states he has follow up with GI later this month. Lipase on discharge: 70 Medications: continue home meds as previously prescribed. Follow up: PCP 3-5 days GI as scheduled. Followup: Michelle Justice NP [Primary Care Provider] - Time spent managing pt's care (in minutes): 45
== END 2023-07-11 15:31 | disposition home or self-care (01) | DRG 440 ==
LOC: ER 03:36 → ERHOLD 05:14 → 4TH 07:58
PROVIDERS: ADMIT Family Medicine; ATTEND Hospitalist
DX: K85.90 Acute pancreatitis without necrosis or infection, unspecified (principal); K86.1 Other chronic pancreatitis; E87.6 Hypokalemia; E03.9 Hypothyroidism, unspecified; K29.80 Duodenitis without bleeding; F32.A Depression, unspecified; J44.9 Chronic obstructive pulmonary disease, unspecified; Z88.1 Allergy status to other antibiotic agents; Z93.0 Tracheostomy status; Z71.6 Tobacco abuse counseling; Z88.8 Allergy status to other drugs, medicaments and biological substances; Z90.49 Acquired absence of other specified parts of digestive tract; Z91.041 Radiographic dye allergy status; Z91.048 Other nonmedicinal substance allergy status; Z79.890 Hormone replacement therapy; Z79.899 Other long term (current) drug therapy; Z87.891 Personal history of nicotine dependence
CPT/HCPCS: 36415; 80053; 81003; 83690; 83735; 84100; 85025; 96361; 96365; 96375; 99285; J1644; J2270; J2405; J3480; J7030; J7120

== ENCOUNTER 2023-08-02 22:35 | Emergency (ER) | payer OTHER ==
[2023-08-02 23:43] LABS: Absolute Eosinophils 0.2 K/uL (0-0.5); Absolute Monocytes 0.7 K/uL (0.1-1.3); Absolute Neutrophil 6.4 K/uL (1.8-8.0); Basophils % 0.5 % (0-1.3); Lymphocytes % 12.3 % (15.3-44.8); MCH 30.4 pg (27.0-35.0); MCHC 34.1 g/dL (32.0-36.0); MCV 89.1 fL (80-100); MPV 7.5 fL (7.6-11.3); Monocytes % 8.8 % (3.3-12.3); Neutrophils % 76.4 % (41.7-73.7); Nucleated Red Blood Cells % 0.1 % (0-0); Platelets 317 thou/uL (152-406)
[2023-08-03 00:01] LABS: Albumin 3.4 g/dL (3.4-5.0); Albumin/Globulin Ratio 0.9 (1.1-1.8); Anion Gap 6.2 mEq/L (5.0-15.0); Bilirubin Total 0.8 mg/dL (0.2-1.0); Globulin 3.9 g/dL (2.3-3.5); Potassium 3.2 mEq/L (3.5-5.1); Protein, Total 7.3 g/dL (6.4-8.2)
[2023-08-03] MEDS ORDERED: ONDANSETRON 4 MG/2 ML VIAL ONE (00:46)
[2023-08-03] MEDS ORDERED: MORPHINE 4 MG/ML SYR ONE (00:46)
[2023-08-03] MEDS ORDERED: FAMOTIDINE 20 MG/2 ML VIAL IV ONE (00:46)
--- NOTE | 2023-08-03 01:57 | EDPHYS ---
Physician Documentation [facility] Name: Akin Pugh Age: 53 yrs Sex: Male : 1970 Arrival Date: 08/02/2023 Time: 22:35 Bed 15 Private MD: Ren Aden HPI: 08/01 23:10 This 53 yrs old Male presents to ER via Ambulatory with complaints of Abdominal Pain, cp PT states he has "chronic pancreatitis". 23:10 The patient presents with abdominal pain in the upper abdomen. Onset: The cp symptoms/episode began/occurred today. Associated signs and symptoms: Pertinent positives: nausea and vomiting, Pertinent negatives: blood in stools, chest pain, constipation, diarrhea, fever, vomiting blood. The symptoms are described as constant. The patient has experienced similar episodes in the past, chronically, today's symptoms are similar, PMHX for chronic pancreatitis. Historical: - Allergies: 23:03 Ampicillin; jb4 23:03 Iodinated Contrast Media - IV Dye; jb4 23:03 Iodine; jb4 23:03 Levaquin; jb4 - PMHx: 23:03 Pancreatitis; COPD; Asthma; THROAT CA; jb4 - PSHx: 23:03 Laryngectomy; tracheostomy; jb4 - Immunization history:: Adult Immunizations up to date. - Infectious Disease History:: Denies. - Social history:: Smoking status: Patient denies any tobacco usage or history of. ROS: 23:15 Constitutional: Negative for body aches, chills, fever, cp 23:15 Eyes: Negative for injury, pain, redness, and discharge, cp 23:15 ENT: Negative for drainage from ear(s), ear pain, sore throat, difficulty swallowing, difficulty handling secretions, 23:15 Cardiovascular: Negative for chest pain, edema, palpitations, 23:15 Respiratory: Negative for cough, shortness of breath, wheezing, 23:15 Abdomen/GI: Positive for abdominal pain, nausea and vomiting, Negative for diarrhea, constipation, hematemesis, 23:15 Neuro: Negative for altered mental status, dizziness, headache, syncope, weakness, 23:15 All other systems are negative, Exam: 23:20 Constitutional: The patient appears in no acute distress, alert, awake, cp non-diaphoretic, non-toxic, well developed, well nourished, uncomfortable, 23:20 Head/Face: Normocephalic, atraumatic. cp 23:20 Eyes: Periorbital structures: appear normal, Conjunctiva: normal, no exudate, no injection, Sclera: no appreciated abnormality, Lids and lashes: appear normal, bilaterally, 23:20 ENT: External ear(s): are unremarkable, Nose: is normal, Mouth: Lips: moist, Oral mucosa: pink and intact, moist, Posterior pharynx: Airway: no evidence of obstruction, patent, 23:20 Chest/axilla: Inspection: normal, 23:20 Cardiovascular: Rate: normal, Rhythm: regular, Edema: is not appreciated, JVD: is not appreciated, 23:20 Respiratory: the patient does not display signs of respiratory distress, Respirations: normal, no use of accessory muscles, no retractions, labored breathing, is not present, Breath sounds: are clear throughout, no decreased breath sounds, no stridor, no wheezing, 23:20 Abdomen/GI: Inspection: abdomen appears normal, Bowel sounds: active, all quadrants, Palpation: soft, in all quadrants, severe abdominal tenderness, in the epigastric area, right upper quadrant and left upper quadrant, rebound tenderness, is not appreciated, involuntary guarding, is not appreciated, 23:20 Back: pain, is absent, ROM is normal, 23:20 Neuro: Orientation: to person, place \\T\\ time. Mentation: is normal, Motor: moves all fours, strength is normal, Vital Signs: 23:01 BP 134 / 89; Pulse 91; Resp 16; Temp 98.7; Pulse Ox 99% on R/A; Weight 79.38 kg (R); 4 Height 5 ft. 11 in. (R); Pain 8/; 0504 00:37 BP 125 / 86; Pulse 71; Resp 20; Temp 98.7; Pulse Ox 99% ; Pain 8/10; bm8 01:42 BP 148 / 93; Pulse 74; Resp 20; Temp 97; Pulse Ox 98% ; Pain 5/10; bm8 02:20 BP 133 / 84; Pulse 85; Resp 17; Temp 97; Pulse Ox 97% ; Pain 0/10; bm8 0503 23:01 Body Mass Index 24.41 (79.38 kg, 180.34 cm) [facility] 08/01 23:01 Pain Scale: Adult jb4 08/02 00:37 Pain Scale: Adult bm8 01:42 Pain Scale: Adult bm8 02:20 Pain Scale: Adult bm8 [place] Coma Score: 00:37 Eye Response: spontaneous(4). Motor Response: obeys commands(6). Verbal Response: bm8 oriented(5). Total: 15. 01:42 Eye Response: spontaneous(4). Motor Response: obeys commands(6). Verbal Response: bm8 oriented(5). Total: 15. 02:20 Eye Response: spontaneous(4). Motor Response: obeys commands(6). Verbal Response: bm8 oriented(5). Total: 15. MDM: 08/01 23:04 Patient medically screened. 08/02 01:56 Data reviewed: vital signs, nurses notes, lab test result(s), radiologic studies, plain cp films, and as a result, I will discharge patient. 01:56 Differential diagnosis: gastritis, non-specific abd pain, pancreatitis, cp Ureterolithiasis, urinary tract infection. I considered the following discharge prescriptions or medication management in the emergency department Medications were administered in the Emergency Department. See MAR. Counseling: I had a detailed discussion with the patient and/or guardian regarding the historical points, exam findings, and any diagnostic results supporting the discharge/admit diagnosis, lab results, radiology results, to return to the emergency department if symptoms worsen or persist or if there are any questions or concerns that arise at home. Response to treatment: the patient's symptoms have markedly improved after treatment, and as a result, I will discharge patient. Special discussion: Based on the patient's Hx, exam, and Dx evaluation, there is no indication for emergent surgery or inpatient Tx. It is understood by the patient/guardian that if the Sx's persist or worsen they need to return immediately for re-evaluation. 08/01 23:28 Order name: CBC with Diff; Complete Time: 00:17 cp 08/02 00:17 Interpretation: Normal except: MPV 7.5; SELVIN% 76.4; LYM% 12.3. cp 08/01 23:28 Order name: CMP; Complete Time: 00:17 cp 08/02 00:18 Interpretation: Normal except: NA 135; K 3.2; GLUC 117; AST 8; GLOB 3.9; A/G 0.9. cp 08/01 23:28 Order name: Lipase; Complete Time: 00:17 cp 08/02 00:18 Interpretation: Reviewed. cp 08/02 00:27 Order name: XRAY Chest (1 view) cp 08/01 23:28 Order name: IV Saline Lock; Complete Time: 23:29 cp 08/01 23:28 Order name: Labs collected and sent; Complete Time: 23:29 cp 08/02 00:58 Order name: PO challenge; Complete Time: 01:33 cp Administered Medications: 01:01 Drug: Ondansetron IVP 4 mg IVP once; over 2 minutes Route: IVP; Site: left forearm; bm8 01:33 Follow up: Response: No adverse reaction bm8 01:01 Drug: Famotidine IVP 20 mg IVP once; dilute with 10 mL 0.9% NaCl; give over 2 minutes bm8 Route: IVP; Site: left forearm; 01:33 Follow up: Response: No adverse reaction bm8 01:01 Drug: morphine IVP or IV 4 mg IVP once over 4 mins Route: IVP; Infused Over: 4 mins; bm8 Site: left forearm; 01:33 Follow up: Response: No adverse reaction bm8 Disposition Summary: 08/03/23 01:57 Discharge Ordered Notes: Location: Home cp Problem: an acute exacerbation cp Symptoms: have improved cp Condition: Stable cp Diagnosis - Nausea with vomiting, unspecified cp - Other chronic pancreatitis cp Followup: cp - With: Private Physician - When: 1 - 2 days - Reason: Recheck today's complaints Discharge Instructions: - Discharge Summary Sheet cp - Nausea and Vomiting, Adult cp - Chronic Pancreatitis cp - Pancreatitis Eating Plan cp Forms: - Medication Reconciliation Form cp - Antibiotic Education cp - Prescription Opioid Use cp - Patient Portal Instructions cp - Leadership Thank You Letter cp Prescriptions: - promethazine 25 mg Oral Tablet - take 1 tablet ORAL route every 6 hours As needed; 20 tablet; Refills: 0, cp Product Selection Permitted - dicyclomine 20 mg Oral tablet - take 1 tablet ORAL route 3 times per day; 30 tablet; Refills: 0, Product cp Selection Permitted Signatures: Dispatcher [employer] EDME Ren Hooks PA PA cp Noah Dueñas RN RN jb4 Macario Green RN RN bm8 Corrections: (The following items were deleted from the chart) 05/03 23: 23:29 CBC+H.LAB.BRZ ordered. EDMS EDMS 23:29 COMPREHENSIVE METABOLIC PANEL+C.LAB.BRZ ordered. EDMS EDMS 23:29 LIPASE+C.LAB.BRZ ordered. EDMS EDMS 23:29 Urinalysis+U.LAB.BRZ ordered. EDMS EDMS
--- NOTE | 2023-08-03 01:57 | ER ---
Nurse's Notes [facility] Name: Akin Pugh Age: 53 yrs Sex: Male : 1970 Arrival Date: 08/02/2023 Time: 22:35 Bed 15 Private MD: Diagnosis: Nausea with vomiting, unspecified;Other chronic pancreatitis Presentation: 08/01 23:01 Chief complaint: Patient states: I have chronic pancreatitis and feel like I am having jb4 a flair up now. I am having upper abdominal pain, nausea, and vomiting. Coronavirus screen: At this time, the client does not indicate any symptoms associated with coronavirus-19. Ebola Screen: No symptoms or risks identified at this time. Initial Sepsis Screen: Does the patient meet any 2 criteria? HR > 90 bpm. Yes Does the patient have a suspected source of infection? No. Patient's initial sepsis screen is negative. Risk Assessment: Do you want to hurt yourself or someone else? Patient reports no desire to harm self or others. Onset of symptoms was August 02, 2023. Transition of care: patient was not received from another setting of care. 23:01 Method Of Arrival: Ambulatory jb4 23:01 Acuity: PAO 3 jb4 Triage Assessment: 23:03 General: Appears in no apparent distress. uncomfortable, Behavior is calm, cooperative, jb4 appropriate for age. Pain: Complains of pain in right upper quadrant and left upper quadrant Pain does not radiate. Pain currently is 8 out of 10 on a pain scale. EENT: No signs and/or symptoms were reported regarding the EENT system. Neuro: Level of Consciousness is awake, alert, obeys commands, Oriented to person, place, time, situation. Cardiovascular: Patient's skin is warm and dry. Respiratory: Airway is patent Respiratory effort is even, unlabored, Respiratory pattern is regular, symmetrical. GI: Abdomen is flat, non-distended, Reports upper abdominal pain, diarrhea, nausea, vomiting. : No signs and/or symptoms were reported regarding the genitourinary system. Derm: Skin Skin is pink, warm \T\ dry. Musculoskeletal: Circulation, motion, and sensation intact. Range of motion: intact in all extremities. Historical: - Allergies: 23:03 Ampicillin; jb4 23:03 Iodinated Contrast Media - IV Dye; jb4 23:03 Iodine; jb4 23:03 Levaquin; jb4 - PMHx: 23:03 Pancreatitis; COPD; Asthma; THROAT CA; jb4 - PSHx: 23:03 Laryngectomy; tracheostomy; jb4 - Immunization history:: Adult Immunizations up to date. - Infectious Disease History:: Denies. - Social history:: Smoking status: Patient denies any tobacco usage or history of. Screenin/04 00:37 [facility] ED Fall Risk Assessment (Adult) History of falling in the last 3 months, bm8 including since admission No falls in past 3 months (0 pts) Confusion or Disorientation No (0 pts) Intoxicated or Sedated No (0 pts) Impaired Gait No (0 pts) Mobility Assist Device Used No (0 pt) Altered Elimination No (0 pt) Score/Fall Risk Level 0 - 2 = Low Risk Oriented to surroundings, Maintained a safe environment, Educated pt \T\ family on fall prevention, incl call for assistance when getting out of bed. Abuse screen: Denies threats or abuse. Nutritional screening: No deficits noted. Tuberculosis screening: No symptoms or risk factors identified. Assessment: 00:37 General: Appears in no apparent distress. uncomfortable, Behavior is calm, cooperative, bm8 appropriate for age. Pain: Complains of pain in EPIGASTRIC REGION Pain does not radiate. Pain currently is 8 out of 10 on a pain scale. Neuro: No deficits noted. Level of Consciousness is awake, alert, obeys commands, Oriented to person, place, time, situation, Appropriate for age. Cardiovascular: No deficits noted. Heart tones S1 S2 present Capillary refill < 3 seconds Patient's skin is warm and dry. Respiratory: PT HAS TRACHEOSTOMY Breath sounds with rales bilaterally. GI: Abdomen is flat, non-distended, Bowel sounds present X 4 quads. Abdomen is tender to palpation in epigastric area and right upper quadrant Reports upper abdominal pain. : No deficits noted. No signs and/or symptoms were reported regarding the genitourinary system. 01:42 Reassessment: Patient appears in no apparent distress at this time. No changes from bm8 previously documented assessment. Patient and/or family updated on plan of care and expected duration. Pain level reassessed. Patient is alert, oriented x 3, equal unlabored respirations, skin warm/dry/pink. Patient states symptoms have improved. Vital Signs: 08/01 23:01 BP 134 / 89; Pulse 91; Resp 16; Temp 98.7; Pulse Ox 99% on R/A; Weight 79.38 kg (R); jb4 Height 5 ft. 11 in. (R); Pain 8/; 08/02 00:37 BP 125 / 86; Pulse 71; Resp 20; Temp 98.7; Pulse Ox 99% ; Pain 8/10; bm8 01:42 BP 148 / 93; Pulse 74; Resp 20; Temp 97; Pulse Ox 98% ; Pain 5/10; bm8 02:20 BP 133 / 84; Pulse 85; Resp 17; Temp 97; Pulse Ox 97% ; Pain 0/10; bm8 08/01 23:01 Body Mass Index 24.41 (79.38 kg, 180.34 cm) 4 08/01 23:01 Pain Scale: Adult 4 08/02 00:37 Pain Scale: Adult bm8 01:42 Pain Scale: Adult bm8 02:20 Pain Scale: Adult bm8 [place] Coma Score: 00:37 Eye Response: spontaneous(4). Motor Response: obeys commands(6). Verbal Response: bm8 oriented(5). Total: 15. 01:42 Eye Response: spontaneous(4). Motor Response: obeys commands(6). Verbal Response: bm8 oriented(5). Total: 15. 02:20 Eye Response: spontaneous(4). Motor Response: obeys commands(6). Verbal Response: bm8 oriented(5). Total: 15. ED Course: 08/01 22:37 Patient arrived in ED. jj6 22:58 [facility] cp 22:58 Ren Bruner MD is Attending Physician. cp 23:03 Triage completed. jb4 23:03 Arm band placed on right wrist. jb4 23:19 Macario Green, RN is Primary Nurse. bm8 08/02 00:37 Patient has correct armband on for positive identification. Bed in low position. Call bm8 light in reach. Side rails up X 1. Client placed on continuous cardiac and pulse oximetry monitoring. NIBP monitoring applied. night monitor on. Pulse ox on. NIBP on. Door closed. Noise minimized. Warm blanket given. Verbal reassurance given. 00:37 No provider procedures requiring assistance completed. Inserted saline lock: 18 gauge bm8 in left forearm, using aseptic technique. Blood collected. 00:45 XRAY Chest (1 view) In Process Unspecified. EDMS 02:20 Provided Education on: POST ER CARE. bm8 02:20 IV discontinued, intact, bleeding controlled, No redness/swelling at site. Pressure bm8 dressing applied. Administered Medications: 01:01 Drug: Ondansetron IVP 4 mg IVP once; over 2 minutes Route: IVP; Site: left forearm; bm8 01:33 Follow up: Response: No adverse reaction bm8 01:01 Drug: Famotidine IVP 20 mg IVP once; dilute with 10 mL 0.9% NaCl; give over 2 minutes bm8 Route: IVP; Site: left forearm; 01:33 Follow up: Response: No adverse reaction bm8 01:01 Drug: morphine IVP or IV 4 mg IVP once over 4 mins Route: IVP; Infused Over: 4 mins; bm8 Site: left forearm; 01:33 Follow up: Response: No adverse reaction bm8 Medication: 00:37 VIS not applicable for this client. bm8 Outcome: 01:57 Discharge ordered by . cp 02:20 Discharged to home ambulatory, bm8 02:20 Condition: stable 02:20 Discharge instructions given to patient, Instructed on discharge instructions, follow up and referral plans. medication usage, safety practices, Demonstrated understanding of instructions, follow-up care, medications, Prescriptions given X 2, 02:22 Patient left the ED. bm8 Signatures: Dispatcher [employer] EDTX Ren Hooks PA PA cp Bryson, James, RN RN jb4 Keerthi Do jj6 Macario Green, RN RN bm8
[2023-08-03 15:03] VITALS: BP 133/84; TEMP 97; O2SAT 97
--- NOTE | 2023-08-03 23:18 | RAD REPORT ---
EXAM DESCRIPTION: RAD - Chest Single View - 08/03/2023 12:43 am CLINICAL HISTORY: Abdominal pain TECHNIQUE: Frontal view of the chest. COMPARISON: No relevant prior studies available. FINDINGS: Lungs: Unremarkable. No consolidation. Pleural space: Unremarkable. No pneumothorax. Heart: Unremarkable. No cardiomegaly. Mediastinum: Unremarkable. Normal mediastinal contour. Bones/joints: Unremarkable. No acute fracture. Vasculature: Thoracic aortic atherosclerosis. IMPRESSION: No acute disease. Electronically signed by: Laxmi Batista MD 08/03/2023 02:24 AM CDT Due to temporary technical issues with the PACS/Fluency reporting system, reports are being signed by the in house radiologists without review as a courtesy to insure prompt reporting. The interpreting radiologist is fully responsible for the content of the report.
== END 2023-08-03 02:22 | disposition home or self-care (01) ==
LOC: ER 22:35
DX: K86.1 Other chronic pancreatitis (principal); Z88.1 Allergy status to other antibiotic agents; Z91.041 Radiographic dye allergy status; Z91.048 Other nonmedicinal substance allergy status
CPT/HCPCS: 85025; 36415; 83690; 80053; 71045; 96375; 96374; 99285; J2405

== ENCOUNTER 2024-03-29 19:00 | Inpatient (IN) | payer OTHER ==
[2024-03-29] MEDS ORDERED: ALBUTEROL 2.5 MG/3 ML NEB SOL ONE (19:36)
[2024-03-29] MEDS ORDERED: CEFTRIAXONE 1000 MG/VIAL ONE (19:36)
[2024-03-29] MEDS ORDERED: ACETAMINOPHEN 500 MG TAB ONE (19:37)
[2024-03-29] MEDS ORDERED: NA CHLORIDE 0.9% 50 ML ONE (19:37)
[2024-03-29] MEDS ORDERED: METHYLPREDNISOLONE 125 MG INJ ONE (19:37)
[2024-03-29] MEDS ORDERED: IPRATROPIUM BROM 0.5MG/2.5ML ONE (19:37)
[2024-03-29 19:53] LABS: Absolute Eosinophils 0.1 K/uL (0-0.5); Absolute Lymphocytes (CBC) 1.1 K/uL (0.7-4.9); Absolute Neutrophil 7.9 K/uL (1.8-8.0); Basophils % 0.4 % (0-1.3); Eosinophils % 0.8 % (0-4.4); Hematocrit 48.3 % (39.6-49.0); Hemoglobin 15.9 g/dL (13.6-17.9); Lymphocytes % 10.7 % (15.3-44.8); MCH 28.6 pg (27.0-35.0); MCHC 32.9 g/dL (32.0-36.0); MCV 86.8 fL (80-100); MPV 7.4 fL (7.6-11.3); Monocytes % 9.8 % (3.3-12.3); Neutrophils % 78.3 % (41.7-73.7); Nucleated Red Blood Cells % 0.2 % (0-0); Platelets 330 thou/uL (152-406); RBC Red Blood Cell Count 5.56 M/uL (4.33-5.43); Red Cell Distribution Width 17.2 % (12.1-15.2)
--- NOTE | 2024-03-29 19:57 | RAD REPORT ---
EXAM: Chest Single View HISTORY: COUGH COMPARISON: 08/03/2023 FINDINGS: LUNGS/PLEURA: Minimal basilar nodularity noted.. MEDIASTINUM: The mediastinal silhouette is within normal limits. CARDIAC: The cardiac silhouette is within normal limits. UPPER ABDOMEN: No significant abnormality. BONES: No acute abnormality. LINES/TUBES/OTHER: N/A IMPRESSION: Minimal basilar nodularity could reflect mild infection or inflammation. No consolidative airspace di sease or edema.
[2024-03-29 19:58] LABS: SARS-CoV-2 Antigen CONTROL BLUE LINE VIS/BG OK; SARS-CoV-2 Antigen Rapid Res Negative (Negative)
[2024-03-29 20:25] LABS: Anion Gap 9.5 mEq/L (5.0-15.0); Potassium 3.5 mEq/L (3.5-5.1)
--- NOTE | 2024-03-29 20:33 | EDPHYS ---
Physician Documentation [facility] Name: Akin Pugh Age: 53 yrs Sex: Male : 1970 Arrival Date: 03/29/2024 Time: 19:00 Bed 8 Private MD: ED Physician Jimi Ayala HPI: 03/29 19:12 This 53 yrs old Male presents to ER via Unassigned with complaints of sob. ec2 19:12 Patient arrives today for evaluation of shortness of breath. Patient with cough and ec2 cold symptoms over the past several days. No nausea, no vomiting, no diarrhea. Denies any fevers. EMS reports hypoxic saturations in the mid 80s. Given the patient albuterol with improvement in symptoms. Patient with history of tracheostomy.. Historical: - Allergies: 23:37 Ampicillin; bm8 23:37 Iodinated Contrast Media - IV Dye; bm8 23:37 Iodine; bm8 23:37 Levaquin; bm8 - Home Meds: 23:37 Unable to obtain [Active]; bm8 - PMHx: 23:37 Asthma; COPD; Pancreatitis; THROAT CA; bm8 - PSHx: 23:37 Laryngectomy; tracheostomy; bm8 - Immunization history:: Adult Immunizations up to date. - Infectious Disease History:: Denies. - Social history:: Smoking status: Patient reports the use of cigarette tobacco products, smokes one pack cigarettes per day. ROS: 19:13 Constitutional: as per hpi ec2 Exam: 19:13 Constitutional: GEN: NAD Head: atraumatic Eyes: EOMI Ears: External ears are ec2 normal. CV: regular rate LUNGS: no respiratory distress, scattered wheezes noted ABD: non-distended SKIN: no evidence of rashes MSK: no evidence of trauma Vital Signs: 19:02 BP 125 / 76; Pulse 66; Resp 22; Temp 98.4; Pulse Ox 100% ; Weight 79.38 kg; Height 5 bm8 ft. 10 in. ; Pain 0/10; 20:00 BP 132 / 84; Pulse 69; Resp 22; Pulse Ox 100% on 10 lpm Non-rebreather mask; dd2 20:05 BP 125 / 76; Pulse 79; Pulse Ox 100% ; ec2 20:30 BP 114 / 74; Pulse 69; Resp 22; Pulse Ox 100% on 10 lpm TRACH MASK WITH NEB; dd2 21:00 BP 124 / 74; Pulse 74; Resp 20; Pulse Ox 100% on 8 lpm TRACH MASK; dd2 21:30 BP 120 / 79; Pulse 75; Resp 22; Pulse Ox 100% on 8 lpm TRACH MASK; dd2 22:00 BP 131 / 87; Pulse 71; Resp 20; Pulse Ox 98% 8 lpm ; dd2 23:00 BP 133 / 85; Pulse 73; Resp 21; Pulse Ox 99% on 8 lpm TRACK MASK; dd2 19:02 Body Mass Index 25.11 (79.38 kg, 177.8 cm) bm8 19:02 Pain Scale: Adult bm8 Cal Coma Score: 23:40 Eye Response: spontaneous(4). Motor Response: obeys commands(6). Verbal Response: bm8 oriented(5). Total: 15. MDM: 19:03 Medical Screening Exam initiated ec2 19:13 Data reviewed: vital signs, nurses notes. ED course: Patient arrives today for ec2 shortness of breath. Examination yields scattered wheezes. Will obtain lab work, EKG, chest x-ray. 19:17 ED course: EKG independently reviewed and interpreted by me, shows normal sinus rhythm, ec2 rate of 80, no acute ST segment elevations, normals are nonactionable.. 20:27 ED course: Chest x-ray shows likely mild infection with basilar nodularity. Flu and ec2 COVID testing negative. Will admit for shortness of breath, pneumonia. Discussed with hospitalist, pending admission.. 03/29 19:04 Order name: Basic Metabolic Panel; Complete Time: 20:27 ec2 03/29 19:04 Order name: CBC with Diff; Complete Time: 20:05 ec2 03/29 19:04 Order name: NT PRO-BNP; Complete Time: 20:27 ec2 03/29 19:12 Order name: Influenza Screen (a \T\ B); Complete Time: 20:05 ec2 03/29 19:12 Order name: SARS RAPID; Complete Time: 20:05 ec2 03/29 22:16 Order name: CBC with Automated Diff EDMS 03/29 22:16 Order name: CBC with Automated Diff EDMS 03/29 22:16 Order name: Comprehensive Metabolic Panel EDMS 03/29 22:16 Order name: Comprehensive Metabolic Panel EDMS 03/29 22:18 Order name: Sputum Culture EDDC 03/29 22:18 Order name: Sputum Gram Stain EDDC 03/29 19:04 Order name: XRAY Chest (1 view); Complete Time: 20:05 ec2 03/29 19:04 Order name: Cardiac monitoring; Complete Time: 19:32 ec2 03/29 19:04 Order name: EKG - Nurse/Tech; Complete Time: 19:32 ec2 03/29 19:04 Order name: IV Saline Lock; Complete Time: 19:32 ec2 03/29 19:04 Order name: Labs collected and sent; Complete Time: 19:32 ec2 03/29 19:04 Order name: O2 Per Protocol; Complete Time: 19:32 ec2 03/29 19:04 Order name: O2 Sat Monitoring; Complete Time: 19:32 ec2 Administered Medications: 19:51 Drug: Rocephin IV 1 grams IV at bolus once; Given slow IV push per pharmacy dd2 instructions Route: IV; Rate: bolus; Site: right antecubital; 21:23 Follow up: Response: No adverse reaction; IV Status: Completed infusion; IV Intake: [id number] 19:51 Drug: Acetaminophen PO 1000 mg PO once Route: PO; dd2 20:21 Follow up: Response: No adverse reaction dd2 19:52 Drug: DuoNeb Nebulize (3:1) (2.5 mg - 0.5 mg) 3 ml Nebulizer once Route: Nebulizer; dd2 20:22 Follow up: Response: No adverse reaction dd2 19:52 Drug: MethylPrednisoLONE IVP 125 mg IVP once Route: IVP; Site: left antecubital; dd2 20:07 Follow up: Response: No adverse reaction dd2 Disposition Summary: 03/29/24 20:33 Hospitalization Ordered Notes: Hospitalization Status: Inpatient Admission ec2 Provider: Rafael Mejia ec2 Location: Telemetry/MedSurg (Inpatient) ec2 Condition: Stable ec2 Problem: an acute exacerbation ec2 Symptoms: have improved ec2 Bed/Room Type: Standard ec2 Room Assignment: 232(03/29/24 22:40) lg3 Diagnosis - Unspecified bacterial pneumonia ec2 Forms: - Medication Reconciliation Form ec2 - SBAR form ec2 - Leadership Thank You Letter ec2 Signatures: Dispatcher [employer] EDMS Flavia Mahmood, RN RN lg3 Jimi Ayala MD MD ec2 Macario Green, RN RN bm8 MERVAT THOMAS, RN RN dd2 Corrections: (The following items were deleted from the chart) 19:04 19:04 BASIC METABOLIC PANEL+C.LAB.BRZ ordered. EDMS EDMS 19:04 19:04 CBC+H.LAB.BRZ ordered. EDMS EDMS 19:04 19:04 PROBNP+C.LAB.BRZ ordered. EDMS EDMS 19:04 19:04 Chest Single View+RAD.RAD.BRZ ordered. EDMS EDMS 19:13 19:13 Influenza Screen (A \T\ B)+BA.LAB.BRZ ordered. EDMS EDMS 19:13 19:13 SARS-COV-2 Antigen Rapid+I.LAB.BRZ ordered. EDMS EDMS 22:40 20:33 ec2 lg3
--- NOTE | 2024-03-29 22:08 | P.HP ---
Certification for Inpatient Patient admitted to: Observation With expected LOS: <2 Midnights Practitioner: I am a practitioner with admitting privileges, knowledge of patient current condition, hospital course, and medical plan of care. Services: Services provided to patient in accordance with Admission requirements found in Title 42 Section 412.3 of the Code of Federal Regulations Patient History Date of Service: 03/29/24 Reason for admission: Hypoxemia History of Present Illness: Patient is 53 years of age nonverbal history of tracheostomy. To the emergency room with dyspnea and cough for the past several days denies any abdominal complaints he was also hypoxic patient is currently nonverbal Allergies levofloxacin [From Levaquin] Allergy (Severe, Verified 02/05/23 01:24) Itching/Hives/Rash ampicillin Allergy (Verified 02/05/23:24) Itching/Hives/Rash iodine Allergy (Verified 02/05/23:24) Hives/Rash Home Medications: Escitalopram [Lexapro*] 20 mg PO DAILY #30 tab 02/16/21 Gabapentin [Neurontin*] 800 mg PO TID 12/11/22 Lipase/Protease/Amylase [Creon Dr 12,000 Units Capsule] 1 tab PO TID 12/11/22 Levothyroxine [Synthroid*] 0.1 mg PO [id number] 05/14/23 Oxycodone HCl/Acetaminophen [Oxycodone-Acetaminophn 7.5-325] 1 tab PO BID 06/06/23 Pantoprazole Sodium [Protonix] 40 mg PO DAILY 06/06/23 - Past Medical/Surgical History Diabetic: No -: Asthma -: Depression -: Throat cancer status post complete laryngectomy/reconstruction 06/2018 -: Recurrent postop infection -: Chronic pain -: Former tobacco use -: Surgical hypothyroidism -: neuropathy -: Pancreatitis/duodenitis -: Tracheostomy -: Appendectomy -: Complete laryngectomy with reconstruction -: knee surgery bilateral knees -: Thyroidectomy Psychosocial/ Personal History: Patient is . He has 3 children. - Family History Father -: Heart disease, Diabetes Notes: agent orange: immobile Mother -: Cancer Notes: breast ca - Social History Smoking Status: Former smoker Alcohol use: No CD- Drugs: No Caffeine use: Yes Review of Systems is unable to be obtained Physical Examination - Vital Signs Blood Pressure: 125/76 Pulse: 79 Respirations: 18 Pulse Ox (%): 100 - Physical Exam General: Alert, Cooperative Respiratory: Clear to auscultation bilaterally, Diminished Cardiovascular: No edema, Regular rate/rhythm, Normal S1 S2 Gastrointestinal: Normal bowel sounds, Soft and benign Integumentary: No rashes, No breakdown - Studies Laboratory Data (last 24 hrs) 03/29/24 03/29/24 19:20 19:20 WBC 10.00 Hgb 15.9 Hct 48.3 Plt Count 330 Sodium 137 Potassium 3.5 BUN 14 Creatinine 1.03 Glucose 75 Microbiology Data (last 24 hrs): 03/29/24 19:24 Nasopharnyx Influenza Type A Antigen Screen - Final 03/29/24 19:24 Nasopharnyx Influenza Type B Antigen Screen - Final Assessment and Plan - Problems (Diagnosis) (1) COPD exacerbation Current Visit: Yes Status: Acute Plan: Patient is 53 years of age extensive medical history status post tracheostomy for laryngeal cancer admitted with dyspnea x-ray is clear minimal changes in the left lower lobe vital signs all stable oxygenation satisfactory apparently was hypoxic on admission probably has underlying obstructive airways disease will recommend and start patient on some steroids bronchodilators there is no evidence of infection and labs is normal - Advance Directives Does patient have a Living Will: No Does patient have a Durable POA for Healthcare: Yes
[2024-03-29] MEDS: METHYLPREDNISOLONE 40 MG INJ IV SCH (22:11)
[2024-03-29] MEDS ORDERED: ALBUTEROL 2.5 MG/3 ML NEB SOL NEB PRN (22:11)
--- NOTE | 2024-03-30 00:45 | ER ---
Nurse's Notes [facility] Name: Akin Pugh Age: 53 yrs Sex: Male : 1970 Arrival Date: 03/29/2024 Time: 19:00 Bed 8 Private MD: Diagnosis: Unspecified bacterial pneumonia Presentation: 03/29 19:02 Chief complaint: EMS states: pt c/o shortness of breath and difficulty breathing for bm8 three days. 19:02 Coronavirus screen: Vaccine status: Patient reports receiving the 2nd dose of the covid bm8 vaccine. Ebola Screen: No symptoms or risks identified at this time. Initial Sepsis Screen: Does the patient meet any 2 criteria? RR > 20 per min. No. Patient's initial sepsis screen is negative. Does the patient have a suspected source of infection? No. Patient's initial sepsis screen is negative. Risk Assessment: Do you want to hurt yourself or someone else? Patient reports no desire to harm self or others. Onset of symptoms was March 26, 2024 at 08:00. 19:02 Method Of Arrival: EMS: [facility] bm8 19:02 Acuity: PAO 3 bm8 Triage Assessment: 19:02 General: Appears in no apparent distress. uncomfortable, Behavior is calm, cooperative, bm8 appropriate for age. Pain: Denies pain. EENT: No deficits noted. No signs and/or symptoms were reported regarding the EENT system. 19:02 Neuro: No deficits noted. Level of Consciousness is awake, alert, obeys commands, bm8 Oriented to person, place, time, situation, Appropriate for age. Cardiovascular: Denies chest pain, Heart tones S1 S2 present Capillary refill < 3 seconds in bilateral fingers Patient's skin is warm and dry. Respiratory: Reports shortness of breath labored breathing Airway is patent Trachea midline Respiratory effort is even, unlabored, Respiratory pattern is regular, symmetrical, Breath sounds with wheezes bilaterally. Onset: The symptoms/episode began/occurred x3 days, the patient has moderate shortness of breath. GI: No signs and/or symptoms were reported involving the gastrointestinal system. : No signs and/or symptoms were reported regarding the genitourinary system. Derm: No signs and/or symptoms reported regarding the dermatologic system. Musculoskeletal: No signs and/or symptoms reported regarding the musculoskeletal system. Historical: - Allergies: 23:37 Ampicillin; bm8 23:37 Iodinated Contrast Media - IV Dye; bm8 23:37 Iodine; bm8 23:37 Levaquin; bm8 - Home Meds: 23:37 Unable to obtain [Active]; bm8 - PMHx: 23:37 Asthma; COPD; Pancreatitis; THROAT CA; bm8 - PSHx: 23:37 Laryngectomy; tracheostomy; bm8 - Immunization history:: Adult Immunizations up to date. - Infectious Disease History:: Denies. - Social history:: Smoking status: Patient reports the use of cigarette tobacco products, smokes one pack cigarettes per day. Screenin:40 [facility] ED Fall Risk Assessment (Adult) History of falling in the last 3 months, bm8 including since admission No falls in past 3 months (0 pts) Confusion or Disorientation No (0 pts) Intoxicated or Sedated No (0 pts) Impaired Gait No (0 pts) Mobility Assist Device Used No (0 pt) Altered Elimination No (0 pt) Score/Fall Risk Level 0 - 2 = Low Risk Oriented to surroundings, Maintained a safe environment, Educated pt \T\ family on fall prevention, incl call for assistance when getting out of bed, Assessed \T\ reinforced patient's understanding of fall precautions, Hourly rounding (assess needs \T\ fall precautionary measures) done, Used ambulatory aids as needed (educated on \T\ assisted with), Used gait belt as appropriate. Abuse screen: Denies threats or abuse. Nutritional screening: No deficits noted. Tuberculosis screening: No symptoms or risk factors identified. Assessment: 23:40 Reassessment: Patient appears in no apparent distress at this time. Patient and/or bm8 family updated on plan of care and expected duration. Pain level reassessed. Patient is alert, oriented x 3, equal unlabored respirations, skin warm/dry/pink. pt is resting with eyes closed breathing is even unlabored at this time on 8l trach mask. Cardiovascular: Denies chest pain, Heart tones S1 S2 present Rhythm is sinus rhythm. Respiratory: Airway is patent Respiratory effort is even, unlabored, Respiratory pattern is regular, symmetrical, Breath sounds are clear bilaterally. Vital Signs: 19:02 BP 125 / 76; Pulse 66; Resp 22; Temp 98.4; Pulse Ox 100% ; Weight 79.38 kg; Height 5 bm8 ft. 10 in. ; Pain 0/10; 20:00 BP 132 / 84; Pulse 69; Resp 22; Pulse Ox 100% on 10 lpm Non-rebreather mask; dd2 20:05 BP 125 / 76; Pulse 79; Pulse Ox 100% ; ec2 20:30 BP 114 / 74; Pulse 69; Resp 22; Pulse Ox 100% on 10 lpm TRACH MASK WITH NEB; dd2 21:00 BP 124 / 74; Pulse 74; Resp 20; Pulse Ox 100% on 8 lpm TRACH MASK; dd2 21:30 BP 120 / 79; Pulse 75; Resp 22; Pulse Ox 100% on 8 lpm TRACH MASK; dd2 22:00 BP 131 / 87; Pulse 71; Resp 20; Pulse Ox 98% 8 lpm ; dd2 23:00 BP 133 / 85; Pulse 73; Resp 21; Pulse Ox 99% on 8 lpm TRACK MASK; dd2 19:02 Body Mass Index 25.11 (79.38 kg, 177.8 cm) bm8 19:02 Pain Scale: Adult bm8 Cal Coma Score: 23:40 Eye Response: spontaneous(4). Motor Response: obeys commands(6). Verbal Response: bm8 oriented(5). Total: 15. ED Course: 19:02 Patient arrived in ED. ss 19:02 Arm band placed on right wrist. bm8 19:02 No provider procedures requiring assistance completed. Inserted saline lock: 20 gauge bm8 in right antecubital area, using aseptic technique. Blood collected. Flushed with 10 mL NS Maintain EMS IV. Gauge \T\ site: 18 glac. Flushed with 10 mL NS. 19:03 Jimi Ayala MD is Attending Physician. ec2 19:20 MERVAT THOMAS, JEAN is Primary Nurse. dd2 19:44 XRAY Chest (1 view) In Process Unspecified. EDMS 20:33 Rafael Mejia MD is Hospitalizing Provider. ec2 23:37 Triage completed. bm8 23:40 Patient has correct armband on for positive identification. Bed in low position. Call bm8 light in reach. Side rails up X 1. Adult w/ patient. Provided Education on: need for admission. Client placed on continuous cardiac and pulse oximetry monitoring. NIBP monitoring applied. supervisor wall mirror department on. Pulse ox on. NIBP on. Door closed. Noise minimized. Warm blanket given. Pillow given. Verbal reassurance given. Head of bed elevated. 23:44 Patient admitted, IV remains in place. bm8 Administered Medications: 19:51 Drug: Rocephin IV 1 grams IV at bolus once; Given slow IV push per pharmacy dd2 instructions Route: IV; Rate: bolus; Site: right antecubital; 21:23 Follow up: Response: No adverse reaction; IV Status: Completed infusion; IV Intake: [id number] 19:51 Drug: Acetaminophen PO 1000 mg PO once Route: PO; dd2 20:21 Follow up: Response: No adverse reaction dd2 19:52 Drug: DuoNeb Nebulize (3:1) (2.5 mg - 0.5 mg) 3 ml Nebulizer once Route: Nebulizer; dd2 20:22 Follow up: Response: No adverse reaction dd2 19:52 Drug: MethylPrednisoLONE IVP 125 mg IVP once Route: IVP; Site: left antecubital; dd2 20:07 Follow up: Response: No adverse reaction dd2 Medication: 23:40 VIS not applicable for this client. bm8 Intake: 21:23 IV: 50ml; Total: 50ml. dd2 Outcome: 20:33 Decision to Hospitalize by Provider. ec2 23:44 Admitted to Med/surg accompanied by nurse, via stretcher, with oxygen, with chart, 8 :44 Condition: stable 23:44 Instructed on follow up and referral plans. the need for admit, Demonstrated understanding of follow-up care, 03/30 00:45 Patient left the ED. lg3 Signatures: Dispatcher [employer] EDMonae Colin RN RN Flavia Mahmood RN RN lg3 Jimi Ayala MD MD ec2 Macario Green RN RN bm8 MERVAT THOMAS RN RN dd2 Corrections: (The following items were deleted from the chart) 03/29 21:23 20:06 Response: No adverse reaction dd2 dd2 23:40 No provider procedures requiring assistance completed. bm8 bm8 :44 23:40 Inserted saline lock: 20 gauge in right antecubital area, using aseptic bm8 technique. Blood collected. Flushed with 10 mL NS Maintain EMS IV. Gauge \T\ site: 18 glac. Flushed with 10 mL NS bm8
[2024-03-30] MEDS: IPRATROPIUM BROM 0.5MG/2.5ML NEB SCH (01:00)
[2024-03-30] MEDS: D5 0.45 NS 1,000 ML IV SCH (01:00)
[2024-03-30] MEDS: IPRATROPIUM BROM 0.5MG/2.5ML ONE ×2 (03:26→20:43)
[2024-03-30 04:48] LABS: Absolute Lymphocytes (CBC) 0.4 K/uL (0.7-4.9); Absolute Monocytes 0.2 K/uL (0.1-1.3); Absolute Neutrophil 11.4 K/uL (1.8-8.0); Basophils % 0.1 % (0-1.3); Hematocrit 44.2 % (39.6-49.0); Lymphocytes % 3.4 % (15.3-44.8); MCH 27.5 pg (27.0-35.0); MCHC 31.7 g/dL (32.0-36.0); MCV 86.8 fL (80-100); MPV 7.8 fL (7.6-11.3); Monocytes % 1.4 % (3.3-12.3); Neutrophils % 95.1 % (41.7-73.7); Platelets 321 thou/uL (152-406); RBC Red Blood Cell Count 5.09 M/uL (4.33-5.43); Red Cell Distribution Width 16.9 % (12.1-15.2)
[2024-03-30 05:02] LABS: ALT/SGPT 23 U/L (16-61); Albumin 3.1 g/dL (3.4-5.0); Albumin/Globulin Ratio 0.8 (1.1-1.8); Alkaline Phosphatase 104 U/L (45-117); Anion Gap 10.9 mEq/L (5.0-15.0); BUN Blood Urea Nitrogen 14 mg/dL (7-18); Bicarbonate 23 mEq/L (21-32); Bilirubin Total 0.3 mg/dL (0.2-1.0); Glomerular Filtration Rate 95 ml/min (=/>90); Glucose Level 218 mg/dL (74-106); Potassium 3.9 mEq/L (3.5-5.1); Protein, Total 7.1 g/dL (6.4-8.2); Sodium Level 136 mEq/L (136-145)
[2024-03-30 05:06] LABS: AST/SGOT < 10 U/L (15-37)
[2024-03-30] MEDS: Oxycodone HCl/Acetaminophen 5/325 MG TAB PO PRN (05:22)
[2024-03-30 05:51] LABS: Lipase 33 U/L (13-75)
[2024-03-30 08:13] LABS: Band Neutrophils 4 % (0-1); Blood Morphology Comment NOT SEEN (NOT SEEN); Differential Total Cells Count 100; Lymphocytes 3 % (15-42); Monocytes 2 % (0-10); Platelet Estimate ADEQ; Segmented Neutrophils 91 % (40-80)
[2024-03-30] MEDS: METHYLPREDNISOLONE 40 MG INJ IV SCH (09:39)
--- NOTE | 2024-03-30 11:09 | EKG ---
Test Date: 2024-03-29 Test Time: 19:15:14 Operations Supervisor [employer]: JOSE R MEASUREMENT RESULTS: Intervals: Rate: 80 LA: 150 QRSD: 78 QT: 390 QTc: 449 [place]: P: 70 LA: 150 QRS: 59 T: 69 INTERPRETIVE STATEMENTS: Normal sinus rhythm Cannot rule out Anterior infarct, age undetermined Abnormal ECG Compared to ECG 12/23/2022 17:09:38 Myocardial infarct finding now present Electronically Signed On 03-30-24 11:08:32 ACCESS LIAISON by Corey Michele
--- NOTE | 2024-03-30 15:45 | P.PN ---
Subjective Date of Service: 03/30/24 Chief Complaint: Hypoxemia Patient reports generalized weakness and shortness of breath. No recorded fever since admission. Patient has poor oral intake. Physical Examination - Vital Signs Temperature: 97.9 F Blood Pressure: 142/79 Pulse: 77 Respirations: 12 Pulse Ox (%): 97 - Studies Laboratory Data (last 24 hrs) 03/29/24 03/29/24 19:20 19:20 WBC 10.00 Hgb 15.9 Hct 48.3 Plt Count 330 Sodium 137 Potassium 3.5 BUN 14 Creatinine 1.03 Glucose 75 Microbiology Data (last 24 hrs): 03/29/24 19:24 Nasopharnyx Influenza Type A Antigen Screen - Final 03/29/24 19:24 Nasopharnyx Influenza Type B Antigen Screen - Final Assessment And Plan - Plan Physical examination General: Alert and oriented x3, NAD, HEENT: Conjunctiva not pale, anicteric sclera Neck: Tracheostomy stoma, supple, no elevated JVD Heart: Heart sounds 1 and 2 normal, regular rhythm, normal rate, no pedal edema Lungs: Clear to auscultation bilaterally, adequate breath sounds bilaterally, no rhonchi or crackles. Abdomen: Soft, nondistended, nontender, normal bowel sounds. Extremities: No tenderness, no deformity Skin: Normal skin turgor, no rash, no nodules or ulcers. Neuro: No focal motor deficit. Normal speech. Psychiatry: Normal mood, no agitation. Diagnosis COPD exacerbation Chronic pancreatitis DM type II Leukocytosis. History of throat cancer status post laryngectomy Tracheostomy Plan: COPD exacerbation Continue bronchodilators IV steroid Watch for steroid-induced hyperglycemia Supplemental oxygen as needed. Leukocytosis Likely steroid-induced Monitor CBC. Chronic pancreatitis Analgesics as needed. Resume home dose of pancrelipase. Tracheostomy Tracheostomy care. DVT prophylaxis: Lovenox Advanced directive: Full code.
[2024-03-30] MEDS: LIPASE/PROTEASE/AMYLASE CAP PO SCH (19:57)
[2024-03-30] MEDS: GABAPENTIN 400 MG CAP PO SCH (19:57)
[2024-03-31] MEDS: IPRATROPIUM BROM 0.5MG/2.5ML ONE (01:32)
[2024-03-31 05:05] LABS: Absolute Basophils 0.2 K/uL (0-0.5); Absolute Lymphocytes (CBC) 0.6 K/uL (0.7-4.9); Absolute Monocytes 0.4 K/uL (0.1-1.3); Basophils % 0.7 % (0-1.3); Hematocrit 42.5 % (39.6-49.0); Hemoglobin 13.8 g/dL (13.6-17.9); Lymphocytes % 2.7 % (15.3-44.8); MCH 28.1 pg (27.0-35.0); MCHC 32.4 g/dL (32.0-36.0); MCV 86.7 fL (80-100); MPV 7.7 fL (7.6-11.3); Monocytes % 1.9 % (3.3-12.3); Neutrophils % 94.7 % (41.7-73.7); Platelets 384 thou/uL (152-406)
[2024-03-31 05:11] LABS: Anion Gap 7.4 mEq/L (5.0-15.0); Potassium 4.4 mEq/L (3.5-5.1)
[2024-03-31] MEDS: LEVOTHYROXINE SOD 0.1 MG TAB PO SCH (05:45)
[2024-03-31] MEDS: PANTOPRAZOLE 40MG TABLET PO SCH (08:40)
[2024-03-31] MEDS: ESCITALOPRAM 20 MG TAB PO SCH (08:40)
--- NOTE | 2024-03-31 08:53 | P.PN ---
Date of Service: 03/31/24 Subjective: feels breathing slightly easier today breathing worsened with movement / light activity no events overnight denies abdominal pains tolerating diet without issues. ROS: 10 point ROS as noted above, otherwise negative Physical Exam: GEN: Alert, oriented, NAD CV: Regular rate and rhythm, no edema Pulm: Nonlabored respirations via trach on RA, wheeze bilaterally ABD: soft, nontender, nondistended Problem List: Acute hypoxic respiratory failure secondary to acute on chronic COPD exacerbation Chronic pancreatitis DM type II Leukocytosis; Likely steroid-induced Depression Hypothyroidism h/o laryngeal cancer s/p laryngectomy with reconstruction and tracheostomy Acute hypoxic respiratory failure secondary to acute on chronic COPD exacerbation h/o laryngeal cancer s/p laryngectomy with reconstruction and tracheostomy on admission, presents with worsening shortness of breath, cough for several days. Reportedly desatting to mid 80s per EMS. Denies abdominal pain. CXR (03/29): noted minimal basilar nodularity could reflect mild infection or inflammation. No consolidative airspace disease or edema. Continue bronchodilators steroids- switch IV to PO 03/31 Supplemental oxygen as needed. continue supportive care, trach care Respiratory status improving. Leukocytosis; Likely steroid-induced Likely steroid-induced. No signs of active infection. Daily labs Chronic pancreatitis continue home pancrelipase, PPI Pain control Depression. Continue home lexapro Hypothyroidism. Continue home synthroid. Code: Full Dispo: Home, ~24-48hrs Time Spent Managing Pts Care (In Minutes): 55
[2024-03-31 09:16] LABS: Blood Morphology Comment NOT SEEN (NOT SEEN); Differential Total Cells Count 100; Lymphocytes 7 % (15-42); Monocytes 1 % (0-10); Platelet Estimate ADEQ; Segmented Neutrophils 92 % (40-80)
[2024-03-31] MEDS: predniSONE 20 MG TAB PO SCH (20:58)
[2024-04-01 04:56] LABS: Anion Gap 6.2 mEq/L (5.0-15.0); Magnesium 2.4 mg/dL (1.6-2.4); Potassium 4.2 mEq/L (3.5-5.1)
[2024-04-01 05:07] LABS: Absolute Lymphocytes (CBC) 0.8 K/uL (0.7-4.9); Absolute Monocytes 1.1 K/uL (0.1-1.3); Absolute Neutrophil 18.6 K/uL (1.8-8.0); Basophils % 0.2 % (0-1.3); Hematocrit 41.4 % (39.6-49.0); Hemoglobin 13.4 g/dL (13.6-17.9); Lymphocytes % 3.8 % (15.3-44.8); MCH 27.9 pg (27.0-35.0); MCHC 32.4 g/dL (32.0-36.0); MCV 86.1 fL (80-100); MPV 8.1 fL (7.6-11.3); Monocytes % 5.3 % (3.3-12.3); Neutrophils % 90.7 % (41.7-73.7); Platelets 344 thou/uL (152-406); RBC Red Blood Cell Count 4.81 M/uL (4.33-5.43); Red Cell Distribution Width 17.5 % (12.1-15.2)
--- NOTE | 2024-04-01 10:23 | P.PN ---
Date of Service: 04/01/24 Subjective: reports worsening abdominal pain this morning pains are similar to his pancreatitis flare ups +nausea this morning. No vomiting afebrile ROS: 10 point ROS as noted above, otherwise negative Physical Exam: GEN: Alert, oriented, NAD CV: Regular rate and rhythm, no edema Pulm: Nonlabored respirations via trach on RA, clear ABD: soft, mild tenderness, nondistended Problem List: Acute hypoxic respiratory failure secondary to acute on chronic COPD exacerbation Chronic pancreatitis DM type II Leukocytosis; Likely steroid-induced Depression Hypothyroidism h/o laryngeal cancer s/p laryngectomy with reconstruction and tracheostomy Acute hypoxic respiratory failure secondary to acute on chronic COPD exacerbation h/o laryngeal cancer s/p laryngectomy with reconstruction and tracheostomy on admission, presents with worsening shortness of breath, cough for several days. Reportedly desatting to mid 80s per EMS. Denies abdominal pain. CXR (03/29): noted minimal basilar nodularity could reflect mild infection or inflammation. No consolidative airspace disease or edema. Continue bronchodilators steroids- switch IV to PO 03/31 Supplemental oxygen as needed. continue supportive care, trach care Respiratory status improving. Leukocytosis; Likely steroid-induced Likely steroid-induced. No signs of active infection. Daily labs Chronic pancreatitis continue home pancrelipase, PPI Pain control check LFTs, lipase given worsening abdominal pains Depression. Continue home lexapro Hypothyroidism. Continue home synthroid. Code: Full Dispo: Home, ~24-48hrs pending abdominal pain improves, repeat labs Time Spent Managing Pts Care (In Minutes): 55
[2024-04-01 11:44] LABS: ALT/SGPT 89 U/L (16-61); AST/SGOT 69 U/L (15-37); Albumin 3.1 g/dL (3.4-5.0); Albumin/Globulin Ratio 0.9 (1.1-1.8); Alkaline Phosphatase 94 U/L (45-117); Bilirubin Total 0.3 mg/dL (0.2-1.0); Globulin 3.6 g/dL (2.3-3.5); Lipase 28 U/L (13-75); Protein, Total 6.7 g/dL (6.4-8.2)
[2024-04-01 11:53] LABS: Bilirubin Direct < 0.2 mg/dL (0-0.2); Bilirubin Indirect, Calculated 0.1 mg/dL (0.2-0.8)
[2024-04-02 07:08] LABS: Absolute Lymphocytes (CBC) 0.7 K/uL (0.7-4.9); Absolute Monocytes 0.7 K/uL (0.1-1.3); Absolute Neutrophil 9.1 K/uL (1.8-8.0); Basophils % 0.2 % (0-1.3); Eosinophils % 0.3 % (0-4.4); Hematocrit 43.6 % (39.6-49.0); Hemoglobin 14.2 g/dL (13.6-17.9); Lymphocytes % 6.4 % (15.3-44.8); MCH 28.2 pg (27.0-35.0); MCHC 32.5 g/dL (32.0-36.0); MCV 86.8 fL (80-100); MPV 8.1 fL (7.6-11.3); Monocytes % 6.5 % (3.3-12.3); Neutrophils % 86.6 % (41.7-73.7); Nucleated Red Blood Cells % 0.1 % (0-0); Platelets 325 thou/uL (152-406); RBC Red Blood Cell Count 5.02 M/uL (4.33-5.43); Red Cell Distribution Width 16.7 % (12.1-15.2)
[2024-04-02 07:17] LABS: Albumin 3.1 g/dL (3.4-5.0); Albumin/Globulin Ratio 0.9 (1.1-1.8); Anion Gap 7.4 mEq/L (5.0-15.0); Bilirubin Total 0.3 mg/dL (0.2-1.0); Globulin 3.4 g/dL (2.3-3.5); Magnesium 2.3 mg/dL (1.6-2.4); Potassium 4.4 mEq/L (3.5-5.1); Protein, Total 6.5 g/dL (6.4-8.2)
--- NOTE | 2024-04-02 09:44 | P.PN ---
Date of Service: 04/02/24 Subjective: feels ~same as yesterday abdominal pain continues ~unchanged breathing comfortably on RA; wheeze improved no events overnight ROS: 10 point ROS as noted above, otherwise negative Physical Exam: GEN: Alert, oriented, NAD CV: Regular rate and rhythm, no edema Pulm: Nonlabored respirations via trach on RA, clear ABD: soft, diffuse mild abdominal tenderness, more in epigastric region, nondistended Problem List: Acute hypoxic respiratory failure secondary to acute on chronic COPD exacerbation Abdominal pain, acute on chronic Chronic pancreatitis Leukocytosis, improved; Likely steroid-induced Depression Hypothyroidism h/o laryngeal cancer s/p laryngectomy with reconstruction and tracheostomy Acute hypoxic respiratory failure secondary to acute on chronic COPD exacerbation h/o laryngeal cancer s/p laryngectomy with reconstruction and tracheostomy on admission, presents with worsening shortness of breath, cough for several days. Reportedly desatting to mid 80s per EMS. Denies abdominal pain. CXR (03/29): noted minimal basilar nodularity could reflect mild infection or inflammation. No consolidative airspace disease or edema. Continue bronchodilators Supplemental oxygen as needed. continue supportive care, trach care Respiratory status improved/stable. Breathing okay on RA. dc steroids - can be contributing to rise in LFTs Abdominal pain, acute on chronic Chronic pancreatitis continue home pancrelipase, PPI Pain control Abdominal pain ~same as yesterday LFTs slightly uptrending, lipase normal; ?suspect elevated LFTs possibly secondary to steroids will check CT abd/pelvis to further eval liquid diet for now patient asking for advancement of diet, will f/u with CT and advance if ok Leukocytosis, improved; Likely steroid-induced Likely steroid-induced. No signs of active infection. leukocytosis resolved Daily labs Depression. Continue home lexapro Hypothyroidism. Continue home synthroid. Code: Full Dispo: Home, ~24-48hrs pending abdominal pain improves, repeat labs Time Spent Managing Pts Care (In Minutes): 55
--- NOTE | 2024-04-02 10:24 | RAD REPORT ---
EXAMINATION: CT ABDOMEN AND PELVIS WITHOUT CONTRAST CLINICAL INDICATION: elevated LFTs, epigastric pain TECHNIQUE: CT abdomen and pelvis was performed, as per department protocol. IV contrast and oral was not administered.Axial, sagittal and coronal reconstructions were obtained. One or more of the following dose reduction techniques were used: Automated exposure control, adjustment of the mA and/o r kV according to the patient size, and/or iterative reconstruction. Unless otherwise specified, incidental findings do not require dedicated imaging follow-up. [id number]. COMPARISON: May 2023. FINDINGS: The lack of intravenous and oral contrast limits evaluation of solid organs, vessels and bowel. The liver, spleen, pancreas, adrenals and left kidney appear grossly normal. Cholecystectomy Tiny calculus right kidney. No hydronephrosis. No evidence of diverticulitis. Atherosclerosis. IMPRESSION: No acute abnormality displayed
[2024-04-02] MEDS: MORPHINE 4 MG/ML SYR IV PRN (17:12)
[2024-04-02] MEDS: IPRATROPIUM BROM 0.5MG/2.5ML NEB PRN (21:07)
[2024-04-02] MEDS: ALBUTEROL 2.5 MG/3 ML NEB SOL NEB PRN (21:07)
[2024-04-03 04:48] LABS: Absolute Lymphocytes (CBC) 1.4 K/uL (0.7-4.9); Absolute Monocytes 1.2 K/uL (0.1-1.3); Absolute Neutrophil 6.7 K/uL (1.8-8.0); Basophils % 0.3 % (0-1.3); Eosinophils % 0.4 % (0-4.4); Hematocrit 41.8 % (39.6-49.0); Hemoglobin 13.9 g/dL (13.6-17.9); Lymphocytes % 15.3 % (15.3-44.8); MCH 28.5 pg (27.0-35.0); MCHC 33.2 g/dL (32.0-36.0); MCV 85.9 fL (80-100); MPV 7.4 fL (7.6-11.3); Monocytes % 12.7 % (3.3-12.3); Neutrophils % 71.3 % (41.7-73.7); Nucleated Red Blood Cells % 0.1 % (0-0); Platelets 314 thou/uL (152-406); RBC Red Blood Cell Count 4.87 M/uL (4.33-5.43); Red Cell Distribution Width 16.6 % (12.1-15.2)
[2024-04-03 05:07] LABS: Albumin/Globulin Ratio 0.9 (1.1-1.8); Anion Gap 7.4 mEq/L (5.0-15.0); Bilirubin Total 0.4 mg/dL (0.2-1.0); Globulin 3.5 g/dL (2.3-3.5); Magnesium 2.3 mg/dL (1.6-2.4); Potassium 3.4 mEq/L (3.5-5.1); Protein, Total 6.5 g/dL (6.4-8.2)
[2024-04-03 06:25] VITALS: BMI 20.5
--- NOTE | 2024-04-03 09:29 | P.PN ---
Date of Service: 04/03/24 Subjective: feels ~same as yesterday doesn't feel any worse abdominal pain unchanged breathing okay in RA. afebrile ROS: 10 point ROS as noted above, otherwise negative Physical Exam: GEN: Alert, oriented, NAD CV: Regular rate and rhythm, no edema Pulm: Nonlabored respirations via trach on RA, clear ABD: soft, diffuse mild abdominal tenderness, more in epigastric region, nondistended Problem List: Acute hypoxic respiratory failure secondary to acute on chronic COPD exacerbation Abdominal pain, acute on chronic Elevated LFTs Chronic pancreatitis Hx Severe duodenitis Leukocytosis, improved; Likely steroid-induced Depression Hypothyroidism h/o laryngeal cancer s/p laryngectomy with reconstruction and tracheostomy Acute hypoxic respiratory failure secondary to acute on chronic COPD exace rbation h/o laryngeal cancer s/p laryngectomy with reconstruction and tracheostomy on admission, presents with worsening shortness of breath, cough for several days. Reportedly desatting to mid 80s per EMS. Denies abdominal pain. CXR (03/29): noted minimal basilar nodularity could reflect mild infection or inflammation. No consolidative airspace disease or edema. Continue bronchodilators Supplemental oxygen as needed. continue supportive care, trach care Respiratory status improved/stable. Breathing okay on RA. steroids dc'd 1/2- could be contributing to rise in LFTs Abdominal pain, acute on chronic Elevated LFTs Chronic pancreatitis Hx Severe duodenitis continue home pancrelipase, PPI Pain control Abdominal pain ~same as yesterday LFTs slightly uptrending, lipase normal; ?possibly secondary to steroids CT abdomen negative for any acute findings EGD ~1.5 years ago noted severe duodenitis Dr. Ross, GI consulted Leukocytosis, improved; Likely steroid-induced Likely steroid-induced. No signs of active infection. leukocytosis resolved 1/2 Daily labs Depression. Continue home lexapro Hypothyroidism. Continue home synthroid. Code: Full Dispo: Home, ~48hrs pending abdominal pain improves, LFTs improve, GI recs Time Spent Managing Pts Care (In Minutes): 55
[2024-04-03] MEDS: MORPHINE 2 MG/ML SYR IV ONE (12:30)
--- NOTE | 2024-04-03 13:25 | RAD REPORT ---
EXAM: CT brain without contrast HISTORY: Numbness COMPARISON: None TECHNIQUE: Multiple contiguous axial images were obtained and a CT of the brain without contrast.. Sagittal and coronal reconstruction performed. Automated exposure control, adjustment of the mA and/or kV according to patient size, and/or iterative reconstruction. Unless otherwise specified, incidental f indings do not require dedicated imaging follow-up FINDINGS: An intracranial bleed is not seen Ventricles are normal caliber No extra-axial fluid collection noted No significant hypodensity within the brain No fluid within the visualized sinuses or mastoids noted. IMPRESSION: No acute intracranial abnormality noted. If the patient continues to have symptoms to suggest an acute intracranial abnormality then MRI of th e brain would be recommended.
[2024-04-03] MEDS: MORPHINE 2 MG/ML SYR IV PRN (14:03)
--- NOTE | 2024-04-04 07:30 | P.PN ---
Date of Service: 04/04/24 Subjective: tentative plan for EGD this afternoon denies any worsening pains chest pain not as severe tingling sensation of fingertips more mild ROS: 10 point ROS as noted above, otherwise negative Physical Exam: GEN: Alert, oriented, NAD CV: Regular rate and rhythm, no edema Pulm: Nonlabored respirations via trach on RA, clear ABD: soft, diffuse mild abdominal tenderness, more in epigastric region, nondistended Problem List: Abdominal pain, acute on chronic Elevated LFTs Chronic pancreatitis Hx Severe duodenitis Acute hypoxic respiratory failure secondary to acute on chronic COPD exacerbation h/o laryngeal cancer s/p laryngectomy with reconstruction and tracheostomy Chest pain Leukocytosis, improved; Likely steroid-induced Depression Hypothyroidism Abdominal pain, acute on chronic Elevated LFTs Chronic pancreatitis Hx Severe duodenitis continue home pancrelipase, PPI EGD ~1.5 years ago noted severe duodenitis CT abdomen negative for any acute findings Abdominal pain ~same as yesterday Dr. Ross, GI consulted NPO for tentative EGD this afternoon LFTs improving Acute hypoxic respiratory failure secondary to acute on chronic COPD exacerbation h/o laryngeal cancer s/p laryngectomy with reconstruction and tracheostomy on admission, presents with worsening shortness of breath, cough for several days. Reportedly desatting to mid 80s per EMS. Denies abdominal pain. CXR (03/29): noted minimal basilar nodularity could reflect mild infection or inflammation. No consolidative airspace disease or edema. Continue bronchodilators Supplemental oxygen as needed. continue supportive care, trach care Respiratory status improved/stable. Breathing okay on RA. steroids dc'd 1/2 - could be contributing to rise in LFTs Chest pain Patient developed chest pain around noon yesterday. Trop and ekg ordered, trop negative, ekg without ischemic changes At time lab was drawing trop, patient reportedly seemed to be staring off with no response.Nurse rubbed patient's sternum, and he made a mild groan, few seconds later he seemed to be "back to normal" Possibly med reaction, can't rule out seizure at this time, but patient did moan /respond somewhat to painful stimuli which is more atypical of seizure CT head ordered, negative. Feeling ok/back to normal. Reports some more mild numbness/tingling of fingertips today Leukocytosis, improved; Likely steroid-induced Likely steroid-induced. No signs of active infection. leukocytosis resolved 1/2 Daily labs Depression. Continue home lexapro Hypothyroidism. Continue home synthroid. Code: Full Dispo: Home, ~48hrs pending abdominal pain improves, LFTs improve, GI recs, EGD Time Spent Managing Pts Care (In Minutes): 55
[2024-04-04 08:03] LABS: Absolute Eosinophils 0.2 K/uL (0-0.5); Absolute Lymphocytes (CBC) 1.5 K/uL (0.7-4.9); Absolute Monocytes 0.8 K/uL (0.1-1.3); Absolute Neutrophil 4.7 K/uL (1.8-8.0); Basophils % 0.5 % (0-1.3); Eosinophils % 2.9 % (0-4.4); Hemoglobin 14.5 g/dL (13.6-17.9); Lymphocytes % 20.1 % (15.3-44.8); MCH 27.8 pg (27.0-35.0); MCHC 32.2 g/dL (32.0-36.0); MCV 86.4 fL (80-100); MPV 7.4 fL (7.6-11.3); Monocytes % 11.5 % (3.3-12.3); Nucleated Red Blood Cells % 0.1 % (0-0); Platelets 301 thou/uL (152-406); RBC Red Blood Cell Count 5.21 M/uL (4.33-5.43); Red Cell Distribution Width 16.4 % (12.1-15.2)
[2024-04-04 08:07] LABS: PT Prothrombin Time 10.9 SECONDS (9.4-12.5); PTT, Activated Partial Thromb 30.4 SECONDS (24.3-36.9); Protime INR 0.97
[2024-04-04 08:16] LABS: Albumin/Globulin Ratio 0.9 (1.1-1.8); Bilirubin Total 0.4 mg/dL (0.2-1.0); Globulin 3.3 g/dL (2.3-3.5); Magnesium 2.6 mg/dL (1.6-2.4); Protein, Total 6.3 g/dL (6.4-8.2)
[2024-04-04 09:09] LABS: Band Neutrophils 3 % (0-1); Differential Total Cells Count 100; Eosinophils 3 % (0-3); Lymphocytes 22 % (15-42); Metamyelocytes 1 % (0-0); Monocytes 10 % (0-10); Myelocytes 3 % (0-0); Platelet Estimate ADEQ; Segmented Neutrophils 59 % (40-80)
[2024-04-04 09:10] LABS: Blood Morphology Comment NOT SEEN (NOT SEEN)
[2024-04-04] MEDS ORDERED: propofoL 200 MG/20 ML VIAL IV ONE (14:13)
[2024-04-04] MEDS: NA CHLORIDE 0.9% 500 ML ONE (14:15)
[2024-04-04] MEDS ORDERED: SIMETHICONE 125 MG TAB PO PRN (14:51)
--- NOTE | 2024-04-04 17:11 | CON ---
Date of Consultation: 04/03/2024 Reason For Consultation: Upper abdominal pain. History Of Present Illness: This is a 53-year-old white male with history of recurrent idiopathic pa ncreatitis, status post laparoscopic cholecystectomy in approximately 2019, presented to the hospital with dyspnea, found to have possible pneumonia. The patient also started having pain in the hospita l, presumably thought possibly due to steroid-induced pancreatitis; however, subsequent CT scan revea led no pancreatitis as in the past and also his lipase has been normal. The patient only has pain. He does have a history however of severe duodenitis in the past. This may be a recurrence of this. Past Medical History: Significant for recurrent pancreatitis, [facility]; history of asthma; depression; neuropathy; appendectomy; laryngeal cancer, status post l aryngectomy with reconstruction and tracheostomy; chronic pain; former tobacco user; surgical hypothy roidism. Past Surgical History: Bilateral knee repairs and thyroidectomy. Social History: He is , 4 children. No tobacco. No alcohol. Family History: Father of colon cancer. Mother of breast cancer. No family members of pa ncreatitis known. Medications: At home in the past have been Creon, Dunning, Norvasc, aspirin, doxycycline, Levaquin, Le xapro, iron sulfate, Neurontin, levothyroxine, Synthroid, melatonin, and Bactroban ointment. Allergies: LEVAQUIN, AMOXICILLIN, AND IODINE. Review of Systems: The patient had dyspnea. Midepigastric, right upper and left upper quadrant pain. Some mild nausea. The patient denies any hematemesis, coffee-grounds emesis, hematuria, dysuria, polydipsia, melena, hematochezia, and chest pain. He has had some shortness of breath though. Mild decrease in mood and anxiety noted. Physical Examination: Vital Signs: The patient is 5 feet 11 inches, 146 pounds, BMI 20 kg/sq m, has a temperature of 97.6 degrees Fahrenheit, pulse 70, respirations 16, blood pressure 110/68, O2 saturation anywhere from 90% to 97% on room air. HEENT: Normocephalic, atraumatic. Anicteric. Pupils equal, round, and reactive to light. Extraocu lar movements are intact. Oropharynx is clear. There is plaquing in the posterior oropharynx and up per palate present. Neck: Supple. Tracheostomy in place. The patient is unable to speak clearly due to his tracheostom y and laryngectomy looks like. Respirations: Clear with good air movement. Neck: Supple with tracheostomy as stated above. Cardiac: Regular rate and rhythm. No gallops or rubs. Gastrointestinal: Positive bowel sounds. Soft and nondistended. Some tenderness in midepigastric, right upper quadrant, and left upper quadrant areas. No rebound, mild guarding. No peritoneal signs . Extremities: No clubbing, cyanosis, or edema. 2+ pulses. Neuro: Alert and oriented x3. Grossly nonfocal. 5/5 motor. Sensation intact to light touch. Laboratory Data: The patient has a white count of 7.2, down from 23.2 on 31 of March. White co unt 9.4, hemoglobin 13.9, hematocrit 41.8, MCV of 86, platelet count of 314, polys of 71%, lymphocyte s 15%, monocytes 13%, PT of 10.9, INR of 1.0, PTT of 30.4. The patient has a sodium 139, potassium 3 .4, chloride 102, bicarb 33, BUN of 20, creatinine of 1.0, glucose 130, calcium 8.4, magnesium 2.3, t otal bilirubin 0.4, AST 123, ALT 211, alkaline phosphatase 135, total protein 6.5, albumin 3.0, and l ipase is 33, 28, 32, all negative. Serology: COVID testing negative. CT of abdomen and pelvis, no pancreatitis noted. No other abnormalities noted on CT of abdomen and pelvis. Impression: 1.Probable recurrence of his severe chronic duodenitis or other. Doubt possible steroid-induced ac creatitis since his CT of abdomen and pelvis did not reveal pancreatitis, and he has a negative lipas e repeatedly. He only has pain, and he is status post laparoscopic cholecystectomy in the past. It appears maybe not, but possible. He had a cholecystectomy changes noted on CT scan. 2.History of throat cancer, status post laryngectomy, reconstruction, tracheostomy, asthma, depressi on, surgical hypothyroidism, and chronic pain. Recommendation: Continue IV fluids. Continue p.r.n. pain medicines and antiemetics. Proceed with E GD evaluation. The patient is in agreement. WS/MODL Voice ID: [id number] Report ID: [id number]
[2024-04-04] MEDS: MORPHINE 2 MG/ML SYR IV PRN (23:35)
[2024-04-05] MEDS: Oxycodone HCl/Acetaminophen 5/325 MG TAB PO PRN (02:50)
[2024-04-05 09:16] LABS: Absolute Eosinophils 0.2 K/uL (0-0.5); Absolute Lymphocytes (CBC) 1.5 K/uL (0.7-4.9); Absolute Monocytes 0.9 K/uL (0.1-1.3); Absolute Neutrophil 6.2 K/uL (1.8-8.0); Basophils % 0.3 % (0-1.3); Eosinophils % 2.7 % (0-4.4); Hematocrit 42.8 % (39.6-49.0); Hemoglobin 14.2 g/dL (13.6-17.9); Lymphocytes % 17.1 % (15.3-44.8); MCH 28.6 pg (27.0-35.0); MCHC 33.2 g/dL (32.0-36.0); MCV 85.9 fL (80-100); MPV 7.6 fL (7.6-11.3); Monocytes % 10.6 % (3.3-12.3); Neutrophils % 69.3 % (41.7-73.7); Nucleated Red Blood Cells % 0.2 % (0-0); Platelets 287 thou/uL (152-406); RBC Red Blood Cell Count 4.98 M/uL (4.33-5.43); Red Cell Distribution Width 16.5 % (12.1-15.2)
[2024-04-05 09:30] LABS: Albumin 3.2 g/dL (3.4-5.0); Albumin/Globulin Ratio 0.9 (1.1-1.8); Anion Gap 3.9 mEq/L (5.0-15.0); Bilirubin Total 0.4 mg/dL (0.2-1.0); Globulin 3.4 g/dL (2.3-3.5); Magnesium 2.5 mg/dL (1.6-2.4); Potassium 3.9 mEq/L (3.5-5.1); Protein, Total 6.6 g/dL (6.4-8.2)
--- NOTE | 2024-04-05 09:59 | P.PN ---
Date of Service: 04/05/24 Subjective: denies any significant changes. Doesn't feel worse tolerated EGD yesterday without issues Abdominal discomfort ~same no nausea/vomiting ROS: 10 point ROS as noted above, otherwise negative Physical Exam: GEN: Alert, oriented, NAD CV: Regular rate and rhythm, no edema Pulm: Nonlabored respirations via trach on RA, clear ABD: soft, diffuse mild abdominal tenderness, more in epigastric region, nondistended Problem List: Abdominal pain, acute on chronic Elevated LFTs Chronic pancreatitis Hx Severe duodenitis Acute hypoxic respiratory failure secondary to acute on chronic COPD exacerbation h/o laryngeal cancer s/p laryngectomy with reconstruction and tracheostomy Chest pain Leukocytosis, improved; Likely steroid-induced Depression Hypothyroidism Abdominal pain, acute on chronic Elevated LFTs Chronic pancreatitis Hx Severe duodenitis continue home pancrelipase, PPI EGD ~1.5 years ago noted severe duodenitis CT abdomen negative for any acute findings Abdominal pain ~same as yesterday Dr. Ross, GI consulted Trend LFTs EKG noted mild gastritis, moderate gastric retention/bile fluid Dr. Ross recommending gastric emptying study; Cant be done over the weekend Anticipate gastric emptying study Saturday Acute hypoxic respiratory failure secondary to acute on chronic COPD exacerbation h/o laryngeal cancer s/p laryngectomy with reconstruction and tracheostomy on admission, presents with worsening shortness of breath, cough for several days. Reportedly desatting to mid 80s per EMS. Denies abdominal pain. CXR (03/29): noted minimal basilar nodularity could reflect mild infection or inflammation. No consolidative airspace disease or edema. Continue bronchodilators Supplemental oxygen as needed. continue supportive care, trach care Respiratory status improved/stable. Breathing okay on RA. steroids dc'd 1/2 Chest pain Patient developed chest pain around noon yesterday. Trop and ekg ordered, trop negative, ekg without ischemic changes At time lab was drawing trop, patient reportedly seemed to be staring off with no response.Nurse rubbed patient's sternum, and he made a mild groan, few seco nds later he seemed to be "back to normal" Possibly med reaction, can't rule out seizure at this time, but patient did moan /respond somewhat to painful stimuli which is more atypical of seizure CT head ordered, negative. Feeling ok/back to normal. Reports some more mild numbness/tingling of fingertips today Leukocytosis, improved; Likely steroid-induced Likely steroid-induced. No signs of active infection. leukocytosis resolved 1/2 Daily labs Depression. Continue home lexapro Hypothyroidism. Continue home synthroid. Code: Full Dispo: Home, ~48hrs pending abdominal pain improves, LFTs improve, GI recs, Gastric emptying study Time Spent Managing Pts Care (In Minutes):45
--- NOTE | 2024-04-05 14:49 | P.PN ---
Subjective Date of Service: 04/07/24 Chief Complaint: DEWEY/RUQ pain, nausea, hypoxemia, SOB Subjective: No new changes (Still with DEWEY/RUQ pain. But also notes bloating, nausea.), Improving (Liver #s improving. On PPI therapy for mild gastritis on EGD yesterday with bile fluid in stomach.) Review of Systems 10-point ROS is otherwise unremarkable Gastrointestinal: Nausea, Abdominal Pain, Other (bloating) Physical Examination - Vital Signs Temperature: 97.9 F Blood Pressure: 114/65 Pulse: 59 Respirations: 12 Pulse Ox (%): 97 - Physical Exam General: Alert, Oriented x3, Cooperative, Mild distress HEENT: Atraumatic, Normocephalic, PERRLA, EOMI Neck: Supple Respiratory: Normal air movement Cardiovascular: Normal pulses Gastrointestinal: No rebound, Tenderness (DEWEY), Guarding (Mild) Neurological: Normal speech, Normal strength at 5/5 x4 extr Assessment And Plan - Current Problems (Diagnosis) (1) Transaminitis Current Visit: Yes Status: Acute Comment: Elevation in AST/ALT with normal lipase, alk phos, Tb probably due to steroid for pulm d/o (2) Hypoxemia Current Visit: No Status: Acute (3) RUQ abdominal pain Current Visit: No Status: Acute (4) SOB (shortness of breath) Onset Date: 10/14/17 Current Visit: No Status: Acute - Plan REC: 1) PPI therapy 2) await Gastric emptying study 3) monitor labs 4) Gas-X bid to tid
[2024-04-05] MEDS: SIMETHICONE 125 MG TAB PO SCH (19:53)
[2024-04-06 06:33] LABS: Albumin/Globulin Ratio 0.8 (1.1-1.8); Anion Gap 5.4 mEq/L (5.0-15.0); Bilirubin Total 0.8 mg/dL (0.2-1.0); Globulin 3.7 g/dL (2.3-3.5); Magnesium 2.3 mg/dL (1.6-2.4); Potassium 4.4 mEq/L (3.5-5.1); Protein, Total 6.7 g/dL (6.4-8.2)
--- NOTE | 2024-04-06 09:06 | P.PN ---
Date of Service: 04/06/24 Subjective: feels ~same as yesterday. plan for gastric emptying study today abdominal pain unchanged Doesn't think anything is getting worse afebrile ROS: 10 point ROS as noted above, otherwise negative Physical Exam: GEN: Alert, oriented, NAD CV: Regular rate and rhythm, no edema Pulm: Nonlabored respirations via trach on RA, clear ABD: soft, diffuse mild abdominal tenderness, more in epigastric region, nondistended Problem List: Abdominal pain, acute on chronic Elevated LFTs Chronic pancreatitis Hx Severe duodenitis Acute hypoxic respiratory failure secondary to acute on chronic COPD exacerbation h/o laryngeal cancer s/p laryngectomy with reconstruction and tracheostomy Chest pain Leukocytosis, improved; Likely steroid-induced Depression Hypothyroidism Abdominal pain, acute on chronic Elevated LFTs Chronic pancreatitis Hx Severe duodenitis continue home pancrelipase, PPI EGD ~1.5 years ago noted severe duodenitis CT abdomen negative for any acute findings Dr. Ross, GI consulted Trend LFTs EGD noted mild gastritis, moderate gastric retention/bile fluid tentative plan for gastric emptying study today Acute hypoxic respiratory failure secondary to acute on chronic COPD exacerbation h/o laryngeal cancer s/p laryngectomy with reconstruction and tracheostomy on admission, presents with worsening shortness of breath, cough for several days. Reportedly desatting to mid 80s per EMS. Denies abdominal pain. CXR (03/29): noted minimal basilar nodularity could reflect mild infection or inflammation. No consolidative airspace disease or edema. Continue bronchodilators Supplemental oxygen as needed. continue supportive care, trach care Respiratory status improved/stable. Breathing okay on RA. steroids dc'd 1/2 Chest pain Patient developed chest pain around noon yesterday. Trop and ekg ordered, trop negative, ekg without ischemic changes At time lab was drawing trop, patient reportedly seemed to be staring off with no response.Nurse rubbed patient's sternum, and he made a mild groan, few seconds later he seemed to be "back to normal" Possibly med reaction, can't rule out seizure at this time, but patient did moan /respond somewhat to painful stimuli which is more atypical of seizure CT head ordered, negative. Feeling ok/back to normal. Reports some more mild numbness/tingling of fingertips today Leukocytosis, improved; Likely steroid-induced Likely steroid-induced. No signs of active infection. leukocytosis resolved 1/2 Daily labs Depression. Continue home lexapro Hypothyroidism. Continue home synthroid. Code: Full Dispo: Home, ~48hrs pending abdominal pain improves, LFTs improve, GI recs, Gastric emptying study Time Spent Managing Pts Care (In Minutes):45
[2024-04-06] MEDS: LACTOBACILLUS/ACIDOPHILUS TAB PO SCH (09:28)
[2024-04-06] MEDS: MORPHINE 2 MG/ML SYR IV PRN (09:29)
--- NOTE | 2024-04-06 14:44 | RAD REPORT ---
EXAM: Nuclear medicine gastric emptying COMPARISON: None HISTORY: Abdominal pain TECHNIQUE: A nuclear medicine gastric emptying exam was administered after administration of 1 mCi of technetium 99m sulfur colloid mixed with eggs. FINDINGS: No gastroesophageal reflux was seen during the examination. The half-time of gastric emptying equals 71 minutes. Normal values 45-110 minutes Retention of radiotracer at 120 minutes is 1% Lag duration 43 minutes IMPRESSION: Unremarkable exam
[2024-04-07 05:24] LABS: Absolute Basophils 0.1 K/uL (0-0.5); Absolute Eosinophils 0.2 K/uL (0-0.5); Absolute Lymphocytes (CBC) 1.5 K/uL (0.7-4.9); Absolute Monocytes 1.2 K/uL (0.1-1.3); Absolute Neutrophil 8.1 K/uL (1.8-8.0); Basophils % 0.6 % (0-1.3); Eosinophils % 1.8 % (0-4.4); Hematocrit 42.4 % (39.6-49.0); Hemoglobin 14.1 g/dL (13.6-17.9); Lymphocytes % 13.2 % (15.3-44.8); MCH 28.5 pg (27.0-35.0); MCHC 33.2 g/dL (32.0-36.0); MCV 85.9 fL (80-100); MPV 7.9 fL (7.6-11.3); Monocytes % 11.3 % (3.3-12.3); Neutrophils % 73.1 % (41.7-73.7); Nucleated Red Blood Cells % 0.1 % (0-0); Platelets 269 thou/uL (152-406); RBC Red Blood Cell Count 4.94 M/uL (4.33-5.43); Red Cell Distribution Width 16.8 % (12.1-15.2)
[2024-04-07 06:42] LABS: Albumin/Globulin Ratio 0.9 (1.1-1.8); Anion Gap 8.8 mEq/L (5.0-15.0); Bilirubin Total 0.7 mg/dL (0.2-1.0); Globulin 3.5 g/dL (2.3-3.5); Magnesium 2.5 mg/dL (1.6-2.4); Potassium 3.8 mEq/L (3.5-5.1); Protein, Total 6.5 g/dL (6.4-8.2)
--- NOTE | 2024-04-07 13:06 | P.PN ---
Subjective Date of Service: 04/07/24 Chief Complaint: DEWEY/RUQ pain, nausea, hypoxemia, SOB Subjective: Improving (Gastric emptying study negative. Still with DEWEY pain. Just drank carton of milk.) Review of Systems 10-point ROS is otherwise unremarkable Gastrointestinal: Nausea, Abdominal Pain Physical Examination - Vital Signs Temperature: 97.9 F Blood Pressure: 114/65 Pulse: 59 Respirations: 12 Pulse Ox (%): 97 - Physical Exam General: Alert, Oriented x3, Cooperative, Mild distress HEENT: Atraumatic, Normocephalic, PERRLA, EOMI Neck: Supple Respiratory: Normal air movement Cardiovascular: Normal pulses Gastrointestinal: No rebound, Tenderness, Guarding Neurological: Normal strength at 5/5 x4 extr Assessment And Plan - Current Problems (Diagnosis) (1) Transaminitis Current Visit: Yes Status: Acute Comment: Elevation in AST/ALT with normal lipase, alk phos, Tb probably due to steroid for pulm d/o (2) Hypoxemia Current Visit: No Status: Acute (3) RUQ abdominal pain Current Visit: No Status: Acute (4) SOB (shortness of breath) Onset Date: 10/14/17 Current Visit: No Status: Acute - Plan REC: 1) PPI therapy 2) no diary, beans, cruciferous vegetables 3) monitor labs 4) Gas-X bid to tid
--- NOTE | 2024-04-07 16:45 | P.PN ---
Subjective Date of Service: 04/07/24 Chief Complaint: DEWEY/RUQ pain, nausea, hypoxemia, SOB Patient reports generalized weakness and shortness of breath. No recorded fever since admission. Patient has poor oral intake. Physical Examination - Vital Signs Temperature: 97.9 F Blood Pressure: 114/65 Pulse: 59 Respirations: 12 Pulse Ox (%): 97 Assessment And Plan - Plan Physical examination General: Alert and oriented x3, NAD, HEENT: Conjunctiva not pale, anicteric sclera Neck: Tracheostomy stoma, supple, no elevated JVD Heart: Heart sounds 1 and 2 normal, regular rhythm, normal rate, no pedal edema Lungs: Clear to auscultation bilaterally, adequate breath sounds bilaterally, no rhonchi or crackles. Abdomen: Soft, nondistended, mild generalized tenderness, normal bowel sounds. Extremities: No tenderness, no deformity Skin: Normal skin turgor, no rash, no nodules or ulcers. Neuro: No focal motor deficit. Normal speech. Psychiatry: Normal mood, no agitation. Diagnosis Abdominal pain, acute on chronic Elevated LFTs Chronic pancreatitis Hx Severe duodenitis Acute hypoxic respiratory failure secondary to acute on chronic COPD exacerbation h/o laryngeal cancer s/p laryngectomy with reconstruction and tracheostomy Chest pain Leukocytosis, improved; Likely steroid-induced Depression Hypothyroidism Plan: Abdominal pain, acute on chronic Elevated LFTs Chronic pancreatitis Hx Severe duodenitis continue home pancrelipase, PPI EGD 1 and a half years ago noted severe duodenitis CT abdomen negative for any acute findings Dr. Ross, GI evaluated patient. Repeat EGD showed mild gastritis, moderate gastric retention and bile fluid LFTs still elevated and grossly unchanged. Gastric emptying study was unremarkable. GI to follow. Acute hypoxic respiratory failure secondary to acute on chronic COPD exacerbation h/o laryngeal cancer s/p laryngectomy with reconstruction and tracheostomy Status post IV steroid. Respiratory failure resolved, patient is tolerating room air Continue bronchodilators as needed. Chest pain Transient altered mental status Probably related to syncope. CT head ordered, negative. May need to rule out seizures. Leukocytosis Likely steroid-induced. Improved Monitor CBC. Tracheostomy Tracheostomy care. Depression Continue home dose Lexapro. Hypothyroidism Continue home dose Synthroid. DVT prophylaxis: Lovenox Advanced directive: Full code. Time Spent Managing Pts Care (In Minutes):39
[2024-04-07] MEDS: ONDANSETRON 4 MG/2 ML VIAL IV PRN (22:49)
[2024-04-08 05:21] LABS: Absolute Eosinophils 0.2 K/uL (0-0.5); Absolute Lymphocytes (CBC) 1.2 K/uL (0.7-4.9); Absolute Monocytes 1.1 K/uL (0.1-1.3); Absolute Neutrophil 7.4 K/uL (1.8-8.0); Basophils % 0.5 % (0-1.3); Eosinophils % 1.8 % (0-4.4); Hematocrit 41.5 % (39.6-49.0); Hemoglobin 13.6 g/dL (13.6-17.9); Lymphocytes % 12.2 % (15.3-44.8); MCH 28.4 pg (27.0-35.0); MCHC 32.7 g/dL (32.0-36.0); MCV 86.8 fL (80-100); MPV 7.9 fL (7.6-11.3); Neutrophils % 74.5 % (41.7-73.7); Platelets 269 thou/uL (152-406); RBC Red Blood Cell Count 4.78 M/uL (4.33-5.43); Red Cell Distribution Width 16.9 % (12.1-15.2)
[2024-04-08 05:34] LABS: Albumin/Globulin Ratio 0.8 (1.1-1.8); Anion Gap 8.9 mEq/L (5.0-15.0); Bilirubin Total 0.5 mg/dL (0.2-1.0); Globulin 3.9 g/dL (2.3-3.5); Potassium 3.9 mEq/L (3.5-5.1); Protein, Total 6.9 g/dL (6.4-8.2)
[2024-04-08 08:28] VITALS: O2SAT 98
--- NOTE | 2024-04-08 10:22 | P.PN ---
Subjective Date of Service: 04/08/24 Chief Complaint: DEWEY/RUQ pain, nausea, hypoxemia, SOB Subjective: Improving (Less DEWEY/RUQ pain on Gas-X and avoiding gassy type foods. He complains that he is only on clear liquids now.) Review of Systems 10-point ROS is otherwise unremarkable Gastrointestinal: Abdominal Pain (Improved. ) Physical Examination - Vital Signs Temperature: 97.5 F Blood Pressure: 124/59 Pulse: 61 Respirations: 16 Pulse Ox (%): 98 - Physical Exam General: Alert, In no apparent distress, Oriented x3, Cooperative, Disheveled HEENT: Atraumatic, Normocephalic, PERRLA, EOMI Neck: Supple Cardiovascular: Normal pulses Gastrointestinal: No rebound, No guarding, Tenderness (Improved. ) Neurological: Normal speech, Normal strength at 5/5 x4 extr Assessment And Plan - Current Problems (Diagnosis) (1) Transaminitis Current Visit: Yes Status: Acute Comment: Elevation in AST/ALT with normal lipase, alk phos, Tb probably due to steroid for pulm d/o (2) Hypoxemia Current Visit: No Status: Acute (3) RUQ abdominal pain Current Visit: No Status: Acute (4) SOB (shortness of breath) Onset Date: 10/14/17 Current Visit: No Status: Acute - Plan REC: 1) PPI therapy 2) no diary, beans, cruciferous vegetables 3) monitor labs 4) Gas-X bid to tid
[2024-04-08 12:41] VITALS: BP 127/87; TEMP 98
--- NOTE | 2024-04-16 12:21 | EKG ---
Test Date: 2024-04-03 Test Time: 12:25:48 Cytogenetic Technologist: MILLIE MEASUREMENT RESULTS: Intervals: Rate: 68 WY: 108 QRSD: 76 QT: 410 QTc: 435 [place]: P: 69 WY: 108 QRS: 51 T: 49 INTERPRETIVE STATEMENTS: Sinus rhythm with short W[place] Otherwise normal ECG Compared to ECG 03/29/2024 19:15:14 Short [place] interval now present Myocardial infarct finding no longer present Electronically Signed On 04-16-24 12:17:22 [employer] PROGRAM COORDINATOR by Corey Michele
== END 2024-04-08 13:10 | disposition home or self-care (01) | DRG 190 ==
LOC: ER 19:00 → ERHOLD 22:11 → 2ND 23:47 → OBSVTOIN 03-30 19:20
PROVIDERS: ADMIT Internal Medicine Sleep Medicine; ATTEND Internal Medicine
PROC: 0DB78ZX Excision of Stomach, Pylorus, Via Natural or Artificial Opening Endoscopic, Diagnostic (ICD-10-PCS; 2024-04-04)
PROC: 0DB68ZX Excision of Stomach, Via Natural or Artificial Opening Endoscopic, Diagnostic (ICD-10-PCS; principal; 2024-04-04 14:45)
DX: J44.1 Chronic obstructive pulmonary disease with (acute) exacerbation (principal); J18.9 Pneumonia, unspecified organism; J96.01 Acute respiratory failure with hypoxia; K86.1 Other chronic pancreatitis; R65.10 Systemic inflammatory response syndrome (SIRS) of non-infectious origin without acute organ dysfunction; E11.9 Type 2 diabetes mellitus without complications; K29.60 Other gastritis without bleeding; E03.9 Hypothyroidism, unspecified; J44.0 Chronic obstructive pulmonary disease with (acute) lower respiratory infection; F32.A Depression, unspecified; T38.0X5A Adverse effect of glucocorticoids and synthetic analogues, initial encounter; F17.210 Nicotine dependence, cigarettes, uncomplicated; R74.01 Elevation of levels of liver transaminase levels; R79.89 Other specified abnormal findings of blood chemistry; Z93.0 Tracheostomy status; Z88.1 Allergy status to other antibiotic agents; Z88.8 Allergy status to other drugs, medicaments and biological substances; Z91.041 Radiographic dye allergy status; Z91.048 Other nonmedicinal substance allergy status; Z11.52 Encounter for screening for COVID-19; Z79.890 Hormone replacement therapy; Z79.899 Other long term (current) drug therapy; Z90.49 Acquired absence of other specified parts of digestive tract; Z85.21 Personal history of malignant neoplasm of larynx
CPT/HCPCS: 36415; 70450; 71045; 74176; 78264; 80048; 80053; 80076; 83690; 83735; 83880; 84132; 84484; 85025; 85610; 85730; 87804; 87811; 88305; 88312; 93005; 94640; 96365; 96366; 96375; 99285; A9541; G0378; J0696; J2270; J2405; J2704; J2919; J7040; J7512; J7613; J7644; J7799

== ENCOUNTER 2024-05-20 18:47 | Emergency (ER) | payer OTHER ==
[2024-05-20 19:30] LABS: Absolute Basophils 0.1 K/uL (0-0.5); Absolute Eosinophils 0.1 K/uL (0-0.5); Absolute Lymphocytes (CBC) 1.3 K/uL (0.7-4.9); Absolute Monocytes 0.8 K/uL (0.1-1.3); Absolute Neutrophil 6.4 K/uL (1.8-8.0); Basophils % 0.7 % (0-1.3); Eosinophils % 1.1 % (0-4.4); Hematocrit 50.3 % (39.6-49.0); Hemoglobin 16.5 g/dL (13.6-17.9); MCH 28.9 pg (27.0-35.0); MCHC 32.8 g/dL (32.0-36.0); MPV 7.5 fL (7.6-11.3); Monocytes % 8.8 % (3.3-12.3); Neutrophils % 74.4 % (41.7-73.7); Nucleated RBC Absolute Count 0.3 (0-0); Nucleated Red Blood Cells % 3.1 % (0-0); Platelets 312 thou/uL (152-406); RBC Red Blood Cell Count 5.71 M/uL (4.33-5.43); Red Cell Distribution Width 17.4 % (12.1-15.2)
[2024-05-20 19:48] LABS: ALT/SGPT 24 U/L (16-61); AST/SGOT 11 U/L (15-37); Albumin 3.5 g/dL (3.4-5.0); Albumin/Globulin Ratio 0.9 (1.1-1.8); Alkaline Phosphatase 115 U/L (45-117); Anion Gap 5.4 mEq/L (5.0-15.0); BUN Blood Urea Nitrogen 11 mg/dL (7-18); Bicarbonate 30 mEq/L (21-32); Bilirubin Total 0.5 mg/dL (0.2-1.0); Globulin 3.9 g/dL (2.3-3.5); Glomerular Filtration Rate 89 ml/min (=/>90); Glucose Level 76 mg/dL (74-106); Magnesium 2.4 mg/dL (1.6-2.4); NT PRO-BNP 40 pg/mL (<125); Potassium 3.4 mEq/L (3.5-5.1); Protein, Total 7.4 g/dL (6.4-8.2); Sodium Level 137 mEq/L (136-145); Troponin High Sensitivity 7.7 pg/mL (<58.9)
[2024-05-20 19:55] LABS: Bilirubin Direct < 0.2 mg/dL (0-0.2); Bilirubin Indirect, Calculated 0.3 mg/dL (0.2-0.8)
--- NOTE | 2024-05-20 20:20 | RAD REPORT ---
EXAMINATION: ONE VIEW CHEST XR CLINICAL INDICATION: CHEST PAIN TECHNIQUE: Frontal chest projection is submitted. Examination is limited by patient positioning and t echnique. COMPARISON: 03/29/2024 FINDINGS: The lungs are well inflated and clear. The heart is upper limit of normal in size. No displaced fract ures identified. IMPRESSION: No acute intrathoracic abnormalities.
[2024-05-20] MEDS ORDERED: METOCLOPRAMIDE 10 MG/2mL INJ ONE (20:40)
[2024-05-20] MEDS ORDERED: NA CHLORIDE 0.9% 2,000 ML ONE (20:40)
[2024-05-20] MEDS ORDERED: MORPHINE 4 MG/ML SYR ONE (20:40)
--- NOTE | 2024-05-20 21:28 | RAD REPORT ---
EXAM: CT CHEST, ABDOMEN AND PELVIS WITHOUT CONTRAST CLINICAL INDICATION: ABDOMINAL DISTENTION TECHNIQUE: CT chest, abdomen and pelvis was performed without contrast, as per department protocol. A xial, sagittal and coronal reconstructions were obtained. One or more of the following dose reduction techniques were used: Automated exposure control, adjustment of the mA and/or kV according to patient size, and/or iterative reconstruction. Unless otherwise specified, incidental findings do not require dedicated imaging follow-up. Examination is limited by the lack of intravenous contrast material. COMPARISON: 02/15/2021 FINDINGS: LUNGS: No evidence of airspace or interstitial process. No nodules. Tracheostomy noted. PLEURA: No pleural effusion. No pneumothorax. MEDIASTINUM AND LYMPH NODES: No mediastinal mass or fluid collection. Normal size mediastinal, hilar, and axillary lymph nodes. OSSEOUS STRUCTURES AND CHEST WALL: Intact. LIVER: Normal in size and contour. No focal lesion or biliary dilatation. Cholecystectomy clips. PANCREAS: No mass, ductal dilation, or selene-pancreatic fluid. SPLEEN: Normal size. No focal lesion. ADRENALS: Normal; no mass. KIDNEYS: Small punctate calculus inferior calyx right kidney. No hydronephrosis. URINARY BLADDER: Normal contour. GASTROINTESTINAL TRACT: Numerous sigmoid diverticula are present. Mild wall thickening also present. Moderate stool is present in the rectum. APPENDIX: Normal appendix. LYMPH NODES: No lymphadenopathy. MUSCULOSKELETAL: No acute or suspicious osseous abnormality. OTHER: Aortoiliac atherosclerosis. IMPRESSION: Sigmoid diverticulosis coli with mild wall thickening could indicate mild or indolent diverticulitis. Follow-up colonoscopy would be suggested after appropriate therapy. Punctate calculus right kidney.
[2024-05-20] MEDS ORDERED: metroNIDAZOLE 500 MG TABLET ONE (22:26)
[2024-05-20] MEDS ORDERED: CEPHALEXIN 250 MG CAP ONE (22:26)
--- NOTE | 2024-05-20 22:36 | ER ---
Nurse's Notes [facility] Name: Akin Pugh Age: 53 yrs Sex: Male : 1970 Arrival Date: 05/20/2024 Time: 18:47 Bed 7 Private MD: Diagnosis: Diverticulitis of large intestine without perforation or abscess without bleeding;Sigmoid Colon Diverticulitis Presentation: 05/20 18:59 Chief complaint: Patient states: chest pain and shortness of breath for 2 days. Also cp4 reports nausea and vomiting. Coronavirus screen: Client denies travel out of the [place] in the last 14 days. At this time, the client does not indicate any symptoms associated with coronavirus-19. Ebola Screen: Patient negative for fever greater than or equal to 101.5 degrees Fahrenheit, and additional compatible Ebola Virus Disease symptoms Patient denies exposure to infectious person. Patient denies travel to an Ebola-affected area in the 21 days before illness onset. No symptoms or risks identified at this time. Initial Sepsis Screen: Does the patient meet any 2 criteria? HR > 90 bpm. No. Patient's initial sepsis screen is negative. Does the patient have a suspected source of infection? No. Patient's initial sepsis screen is negative. Risk Assessment: Do you want to hurt yourself or someone else? Patient reports no desire to harm self or others. Onset of symptoms was May 18, 2024. 18:59 Method Of Arrival: Ambulatory 4 18:59 Acuity: PAO 3 cp4 Triage Assessment: 19:02 General: Appears in no apparent distress. uncomfortable, Behavior is calm, cooperative, cp4 appropriate for age. Pain: Complains of pain in chest Pain does not radiate. Pain at worst was 8 out of 10 on a pain scale. Cardiovascular: Patient's skin is warm and dry. Rhythm is sinus tachycardia. Historical: - Allergies: 19:02 Ampicillin; cp4 19:02 Iodinated Contrast Media - IV Dye; cp4 19:02 Iodine; cp4 19:02 Levaquin; cp4 - PMHx: 19:02 Asthma; Pancreatitis; COPD; THROAT CA; cp4 - PSHx: 19:02 Laryngectomy; tracheostomy; cp4 - Immunization history:: Adult Immunizations not up to date. - Infectious Disease History:: Denies. - Social history:: Smoking status: Patient reports the use of cigarette tobacco products, smokes one pack cigarettes per day. - Family history:: not pertinent. Screenin:[address] [facility] ED Fall Risk Assessment (Adult) History of falling in the last 3 months, bm8 including since admission No falls in past 3 months (0 pts) Confusion or Disorientation No (0 pts) Intoxicated or Sedated No (0 pts) Impaired Gait No (0 pts) Mobility Assist Device Used No (0 pt) Altered Elimination No (0 pt) Score/Fall Risk Level 0 - 2 = Low Risk Oriented to surroundings, Maintained a safe environment, Educated pt \T\ family on fall prevention, incl call for assistance when getting out of bed, Assessed \T\ reinforced patient's understanding of fall precautions, Hourly rounding (assess needs \T\ fall precautionary measures) done, Used ambulatory aids as needed (educated on \T\ assisted with), Used gait belt as appropriate. Abuse screen: Denies threats or abuse. Nutritional screening: No deficits noted. Tuberculosis screening: No symptoms or risk factors identified. Assessment: 19:26 General: Appears in no apparent distress. comfortable, Behavior is calm, cooperative, bm8 appropriate for age. Pain: Complains of pain in chest Pain does not radiate. Pain currently is 8 out of 10 on a pain scale. Pain began 2-3 days ago. Neuro: No deficits noted. Level of Consciousness is awake, alert, obeys commands, Oriented to person, place, time, situation, Appropriate for age. Cardiovascular: Reports chest pain, Heart tones S1 S2 present Capillary refill < 3 seconds in bilateral fingers Patient's skin is warm and dry. Respiratory: Airway is patent via trache Respiratory effort is even, unlabored, Respiratory pattern is Breath sounds are diminished bilaterally. GI: Reports nausea, vomiting. : No signs and/or symptoms were reported regarding the genitourinary system. EENT: No signs and/or symptoms were reported regarding the EENT system. Derm: No signs and/or symptoms reported regarding the dermatologic system. Musculoskeletal: No signs and/or symptoms reported regarding the musculoskeletal system. 21:44 Reassessment: Patient appears in no apparent distress at this time. Patient and/or bm8 family updated on plan of care and expected duration. Pain level reassessed. Patient is alert, oriented x 3, equal unlabored respirations, skin warm/dry/pink. Patient states feeling better. Patient states symptoms have improved. Pain: Complains of pain in abdomen Pain currently is 5 out of 10 on a pain scale. 22:30 Reassessment: Patient appears in no apparent distress at this time. No changes from bm8 previously documented assessment. Patient and/or family updated on plan of care and expected duration. Pain level reassessed. Patient is alert, oriented x 3, equal unlabored respirations, skin warm/dry/pink. Vital Signs: 18:59 BP 133 / 94; Pulse 118; Resp 20; Temp 97.3; Pulse Ox 100% ; Weight 79.38 kg; Height 5 cp4 ft. 11 in. ; Pain 8/10; 19:26 BP 114 / 87; Pulse 81; Resp 18; Temp 97.3; Pulse Ox 99% on R/A; Pain 8/10; bm8 21:44 BP 172 / 92; Pulse 70; Resp 18; Temp 97.3; Pulse Ox 95% ; Pain 5/10; bm8 22:30 BP 123 / 76; Pulse 60; Resp 16; Temp 97.3; Pulse Ox 97% ; Pain 5/10; bm8 18:59 Body Mass Index 24.41 (79.38 kg, 180.34 cm) cp4 18:59 Pain Scale: Adult cp4 19:26 Pain Scale: Adult bm8 21:44 Pain Scale: Adult bm8 22:30 Pain Scale: Adult bm8 Cal Coma Score: 19:26 Eye Response: spontaneous(4). Motor Response: obeys commands(6). Verbal Response: bm8 oriented(5). Total: 15. 21:44 Eye Response: spontaneous(4). Motor Response: obeys commands(6). Verbal Response: bm8 oriented(5). Total: 15. 22:30 Eye Response: spontaneous(4). Motor Response: obeys commands(6). Verbal Response: bm8 oriented(5). Total: 15. 02/20 01:23 Eye Response: spontaneous(4). Motor Response: obeys commands(6). Verbal Response: sp4 oriented(5). Total: 15. ED Course: 05/20 18:49 Patient arrived in ED. im 19:02 Triage completed. cp4 19:02 Arm band placed on right wrist. Patient placed in waiting room. cp4 19:05 Givens, Setul, MD is Attending Physician. sp3 19:26 Macario Green, RN is Primary Nurse. bm8 19:26 Patient has correct armband on for positive identification. Bed in low position. Call bm8 light in reach. Side rails up X 1. Client placed on continuous cardiac and pulse oximetry monitoring. NIBP monitoring applied. athletic monitor on. Pulse ox on. NIBP on. Door closed. Noise minimized. Warm blanket given. Pillow given. Verbal reassurance given. Head of bed lowered. 19:26 No provider procedures requiring assistance completed. Initial lab(s) drawn, by ED bm8 staff, sent to lab. EKG done, by ED staff, reviewed by Arturo Givens MD. Inserted saline lock: 22 gauge in left forearm, using aseptic technique. Blood collected. Flushed with 10 mL NS. Patient maintains SpO2 saturation greater than 95% on room air. 20:06 Attending Physician role handed off by Arturo Givens MD sp4 20:06 Clarke Morris MD is Attending Physician. sp4 20:17 XRAY Chest (1 view) In Process Unspecified. EDMS 21:20 CT Chest Abdomen Pelvis W/O Contrast In Process Unspecified. EDMS 22:30 Provided Education on: post er care. bm8 22:30 IV discontinued, intact, bleeding controlled, No redness/swelling at site. Pressure bm8 dressing applied. Administered Medications: 20:49 Drug: NS 0.9% IV 1000 ml IV at 250 ml/hr Per protocol; to be given as a bolus over 60 bm8 minutes Route: IV; Rate: 250 ml/hr; Site: left forearm; 22:33 Follow up: Response: No adverse reaction; IV Status: Completed infusion; IV Intake: bm8 750ml 20:59 Drug: morphine IVP or IV 8 mg IVP once over 4 mins Route: IVP; Infused Over: 4 mins; bm8 Site: left forearm; 21:46 Follow up: Response: No adverse reaction bm8 20:59 Drug: NS 0.9% IV 1000 ml IV at 1 bolus Per protocol; to be given as a bolus over 60 bm8 minutes Route: IV; Rate: 1 bolus; Site: left forearm; 21:46 Follow up: Response: No adverse reaction; IV Status: Completed infusion; IV Intake: bm8 1000ml 20:59 Drug: metoCLOPramide IVP 10 mg IVP once; over 1 to 2 minutes Route: IVP; Site: left bm8 forearm; 21:46 Follow up: Response: No adverse reaction bm8 22:32 Drug: metroNIDAZOLE PO 500 mg PO once Route: PO; bm8 22:33 Follow up: Response: No adverse reaction; Medication Administered at Departure bm8 22:32 Drug: Cephalexin PO 500 mg PO once Route: PO; bm8 22:32 Follow up: Response: Medication Administered at Departure bm8 Medication: 19:26 VIS not applicable for this client. bm8 Intake: 21:46 IV: 1000ml; Total: 1000ml. bm8 22:33 IV: 750ml; Total: 1750ml. bm8 Outcome: 22:30 Discharged to home ambulatory, bm8 22:30 Condition: stable 22:30 Discharge instructions given to patient, Instructed on discharge instructions, follow up and referral plans. no drinking with medication, no driving heavy equipment, medication usage, safety practices, Demonstrated understanding of instructions, follow-up care, Prescriptions given X 2, 22:36 Discharge ordered by sp4 22:47 Patient left the ED. bm8 Signatures: Dispatcher [employer] EDMS Arturo Givens MD MD sp3 Clarke Morris MD MD sp4 Jihan Corrales Christina cp4 Macario Green, RN RN bm8 Corrections: (The following items were deleted from the chart) 22:16 19:26 Inserted saline lock: 22 gauge in right forearm, using aseptic technique. Blood bm8 collected. Flushed with 10 mL NS bm8
--- NOTE | 2024-05-20 22:36 | EDPHYS ---
Physician Documentation [facility] Name: Akin Pugh Age: 53 yrs Sex: Male : 1970 Arrival Date: 05/20/2024 Time: 18:47 Bed 7 Private MD: ED Physician Clarke Morris HPI: 05/20 20:06 This 53 yrs old Male presents to ER via Ambulatory with complaints of Chest sp4 Pain, Shortness Of Breath, Abdominal Pain. 05/21 01:21 53-year-old male presents with acute moderate chest and abdominal pain.. sp4 Historical: - Allergies: 05/20 19:02 Ampicillin; cp4 19:02 Iodinated Contrast Media - IV Dye; cp4 19:02 Iodine; cp4 19:02 Levaquin; cp4 - PMHx: 19:02 Asthma; Pancreatitis; COPD; THROAT CA; cp4 - PSHx: 19:02 Laryngectomy; tracheostomy; cp4 - Immunization history:: Adult Immunizations not up to date. - Infectious Disease History:: Denies. - Social history:: Smoking status: Patient reports the use of cigarette tobacco products, smokes one pack cigarettes per day. - Family history:: not pertinent. ROS: 05/21 01:23 Constitutional: Negative for fever, chills, and weight loss, positive for abdominal sp4 and chest pain All other systems are negative, Exam: 01:23 Constitutional: This is a well developed, well nourished patient who is awake, alert, sp4 and in no acute distress. Head/Face: Normocephalic, atraumatic. There is anterior neck tracheostomy stoma without any devices Eyes: Pupils equal round and reactive to light, extra-ocular motions intact. Lids and lashes normal. Conjunctiva and sclera are not injected. Cornea within normal limits. Periorbital areas with no swelling, redness, or edema. ENT: Nares patent. No nasal discharge, no septal abnormalities noted. Tympanic membranes are normal and external auditory canals are clear. Oropharynx with no redness, swelling, or masses, exudates, or evidence of obstruction, uvula midline. Mucous membranes moist. Neck: Trachea midline, no thyromegaly or masses palpated, and no cervical lymphadenopathy. Supple, full range of motion without nuchal rigidity, or vertebral point tenderness. There is anterior neck tracheostomy stoma Chest/axilla: Normal chest wall appearance and motion. Nontender with no deformity. No lesions are appreciated. Cardiovascular: Regular rate and rhythm with a normal S1 and S2. No gallops, murmurs, or rubs. Normal PMI, no JVD. No pulse deficits. Respiratory: Lungs have equal breath sounds bilaterally, clear to auscultation and percussion. No rales, rhonchi or wheezes noted. No increased work of breathing, no retractions or nasal flaring. Abdomen/GI: Soft, with normal bowel sounds. No distension or tympany. No guarding or rebound. No evidence of tenderness throughout. Back: No spinal tenderness. No costovertebral tenderness. Skin: Warm, dry with normal turgor. Normal color with no rashes, no lesions, and no evidence of cellulitis. MS/ Extremity: Pulses equal, no cyanosis. Neurovascular intact. Full, normal range of motion. Neuro: Awake and alert, GCS 15, oriented to person, place, time, and situation. Cranial nerves II-XII grossly intact. Motor strength 5/5 in all extremities. Sensory grossly intact. Psych: Awake, alert, with orientation to person, place and time. Behavior, mood, and affect are within normal limits 01:23 ECG was reviewed by the Attending Physician. EKG at 1904 sinus tachycardia 108 otherwise normal Vital Signs: 05/20 18:59 BP 133 / 94; Pulse 118; Resp 20; Temp 97.3; Pulse Ox 100% ; Weight 79.38 kg; Height 5 cp4 ft. 11 in. ; Pain 8/10; 19:26 BP 114 / 87; Pulse 81; Resp 18; Temp 97.3; Pulse Ox 99% on R/A; Pain 8/10; bm8 21:44 BP 172 / 92; Pulse 70; Resp 18; Temp 97.3; Pulse Ox 95% ; Pain 5/10; bm8 22:30 BP 123 / 76; Pulse 60; Resp 16; Temp 97.3; Pulse Ox 97% ; Pain 5/10; bm8 18:59 Body Mass Index 24.41 (79.38 kg, 180.34 cm) cp4 18:59 Pain Scale: Adult cp4 19:26 Pain Scale: Adult bm8 21:44 Pain Scale: Adult bm8 22:30 Pain Scale: Adult bm8 Cal Coma Score: 19:26 Eye Response: spontaneous(4). Motor Response: obeys commands(6). Verbal Response: bm8 oriented(5). Total: 15. 21:44 Eye Response: spontaneous(4). Motor Response: obeys commands(6). Verbal Response: bm8 oriented(5). Total: 15. 22:30 Eye Response: spontaneous(4). Motor Response: obeys commands(6). Verbal Response: bm8 oriented(5). Total: 15. 05/21 01:23 Eye Response: spontaneous(4). Motor Response: obeys commands(6). Verbal Response: sp4 oriented(5). Total: 15. MDM: 05/20 19:04 Differential diagnosis: abnormal EKG, acute pericarditis, anxiety, chest wall pain, sp4 esophagitis, gastritis. HEART Score: History: Slightly Suspicious (0), ECG: Non specific repolarization disturbance / LBTB / PM (1), Age: > 45 and < 65 years (1), Risk Factors: 1 or 2 risk factors (1), Troponin: < or = 1 x Normal Limit (0), Total Score = 3. Data reviewed: vital signs, nurses notes, old medical records, lab test result(s), EKG, radiologic studies, CT scan. 19:05 Medical Screening Exam initiated sp3 22:27 ED course: EXAMINATION: ONE VIEW CHEST XR CLINICAL INDICATION: CHEST PAIN TECHNIQUE: sp4 Frontal chest projection is submitted. Examination is limited by patient positioning and technique. COMPARISON: 03/29/2024 FINDINGS: The lungs are well inflated and clear. The heart is upper limit of normal in size. No displaced fractures identified. IMPRESSION: No acute intrathoracic abnormalities. . ED course: COMPARISON: 02/15/2021 FINDINGS: LUNGS: No evidence of airspace or interstitial process. No nodules. Tracheostomy noted. PLEURA: No pleural effusion. No pneumothorax. MEDIASTINUM AND LYMPH NODES: No mediastinal mass or fluid collection. Normal size mediastinal, hilar, and axillary lymph nodes. OSSEOUS STRUCTURES AND CHEST WALL: Intact. LIVER: Normal in size and contour. No focal lesion or biliary dilatation. Cholecystectomy clips. PANCREAS: No mass, ductal dilation, or selene-pancreatic fluid. SPLEEN: Normal size. No focal lesion. ADRENALS: Normal; no mass. KIDNEYS: Small punctate calculus inferior calyx right kidney. No hydronephrosis. URINARYBLADDER: Normal contour. GASTROINTESTINAL TRACT: Numerous sigmoid diverticula are present. Mild wall thickening also present. Moderate stool is present in the rectum. APPENDIX: Normal appendix. LYMPH NODES: No lymphadenopathy. MUSCULOSKELETAL: No acute or suspicious osseous abnormality. OTHER: Aortoiliac atherosclerosis. IMPRESSION: Sigmoid diverticulosis coli with mild wall thickening could indicate mild or indolent diverticulitis. Follow-up colonoscopy would be suggested after appropriate therapy. Punctate calculus right kidney. . 05/20 19:06 Order name: Basic Metabolic Panel; Complete Time: 20:20 sp3 05/20 19:06 Order name: CBC with Diff; Complete Time: 20:20 sp3 05/20 19:06 Order name: LFT's; Complete Time: 20:20 sp3 05/20 19:06 Order name: Magnesium; Complete Time: 20:20 sp3 05/20 19:06 Order name: NT PRO-BNP; Complete Time: 20:20 sp3 05/20 19:06 Order name: Troponin HS; Complete Time: 20:20 sp3 05/20 20:17 Order name: Lipase; Complete Time: 22:18 sp4 05/20 19:06 Order name: XRAY Chest (1 view); Complete Time: 22:18 sp3 05/20 20:20 Order name: CT Chest Abdomen Pelvis W/O Contrast; Complete Time: 22:18 sp4 05/20 19:06 Order name: EKG; Complete Time: 19:07 sp3 05/20 19:06 Order name: Cardiac monitoring; Complete Time: 19:33 sp3 05/20 19:06 Order name: EKG - Nurse/Tech; Complete Time: 19:33 sp3 05/20 19:06 Order name: IV Saline Lock; Complete Time: 19:33 sp3 05/20 19:06 Order name: Labs collected and sent; Complete Time: 19:33 sp3 EC:04 Rate is 108 beats/min. Rhythm is regular, Sinus tachycardia. QRS Leroy is Normal. MI sp4 interval is normal. QRS interval is normal. QT interval is normal. No Q waves. T waves are Normal. No ST changes noted. Clinical impression: No evidence of ischemia. Interpreted by me. Reviewed by me. Administered Medications: 20:49 Drug: NS 0.9% IV 1000 ml IV at 250 ml/hr Per protocol; to be given as a bolus over 60 bm8 minutes Route: IV; Rate: 250 ml/hr; Site: left forearm; 22:33 Follow up: Response: No adverse reaction; IV Status: Completed infusion; IV Intake: bm8 750ml 20:59 Drug: morphine IVP or IV 8 mg IVP once over 4 mins Route: IVP; Infused Over: 4 mins; bm8 Site: left forearm; 21:46 Follow up: Response: No adverse reaction bm8 20:59 Drug: NS 0.9% IV 1000 ml IV at 1 bolus Per protocol; to be given as a bolus over 60 bm8 minutes Route: IV; Rate: 1 bolus; Site: left forearm; 21:46 Follow up: Response: No adverse reaction; IV Status: Completed infusion; IV Intake: bm8 1000ml 20:59 Drug: metoCLOPramide IVP 10 mg IVP once; over 1 to 2 minutes Route: IVP; Site: left bm8 forearm; 21:46 Follow up: Response: No adverse reaction bm8 22:32 Drug: metroNIDAZOLE PO 500 mg PO once Route: PO; bm8 22:33 Follow up: Response: No adverse reaction; Medication Administered at Departure bm8 22:32 Drug: Cephalexin PO 500 mg PO once Route: PO; bm8 22:32 Follow up: Response: Medication Administered at Departure bm8 Disposition Summary: 05/20/24 22:36 Discharge Ordered Notes: Location: Home sp4 Problem: new sp4 Symptoms: have improved sp4 Condition: Stable sp4 Diagnosis - Diverticulitis of large intestine without perforation or abscess without bleeding sp4 - Sigmoid Colon Diverticulitis sp4 Followup: sp4 - With: Private Physician - When: 7 - 10 days - Reason: Recheck today's complaints Discharge Instructions: - Discharge Summary Sheet sp4 - Diverticulitis, [id number] sp4 Forms: - Patient Portal Instructions sp4 Prescriptions: - Cephalexin 500 mg Oral Capsule - take 1 capsule ORAL route every 12 hours for 10 days; 20 capsule; Refills: 0, sp4 Product Selection Permitted - Flagyl 500 mg Oral Tablet - take 1 tablet ORAL route every 8 hours for 10 days; 30 tablet; Refills: 0, sp4 Product Selection Permitted - dicyclomine 20 mg Oral tablet - take 1 tablet ORAL route 3 times per day PRN abdominal pain; 30 tablet; sp4 Refills: 0, Product Selection Permitted Signatures: Dispatcher [employer] EDMS Arturo Givens MD MD sp3 Clarke Morris MD MD sp4 Xiomy Jacques cp4 Macario Green, RN RN bm8 Corrections: (The following items were deleted from the chart) 20:18 20:18 LIPASE+C.LAB.BRZ ordered. EDMS EDMS
== END 2024-05-20 22:47 | disposition home or self-care (01) ==
LOC: ER 18:47
DX: K57.32 Diverticulitis of large intestine without perforation or abscess without bleeding (principal); N20.0 Calculus of kidney; F17.210 Nicotine dependence, cigarettes, uncomplicated
CPT/HCPCS: 85025; 80048; 36415; 83735; 80076; 84484; 83690; 83880; 71250; 74176; 71045; J2765; J7030; 93005

== ENCOUNTER 2024-07-15 16:10 | Inpatient (IN) | payer OTHER ==
[2024-07-15] MEDS ORDERED: NA CHLORIDE 0.9% 1,000 ML ONE ×2 (16:37→20:45)
[2024-07-15] MEDS ORDERED: IPRATROPIUM BROM 0.5MG/2.5ML ONE (16:37)
[2024-07-15] MEDS ORDERED: MORPHINE 4 MG/ML SYR ONE (16:37)
[2024-07-15] MEDS ORDERED: ONDANSETRON 4 MG/2 ML VIAL ONE (16:37)
[2024-07-15] MEDS ORDERED: ALBUTEROL 2.5 MG/3 ML NEB SOL ONE (16:37)
[2024-07-15 16:47] LABS: Absolute Basophils 0.1 K/uL (0-0.5); Absolute Eosinophils 0.1 K/uL (0-0.5); Absolute Lymphocytes (CBC) 1.2 K/uL (0.7-4.9); Absolute Monocytes 0.5 K/uL (0.1-1.3); Absolute Neutrophil 6.4 K/uL (1.8-8.0); Eosinophils % 1.5 % (0-4.4); Hematocrit 43.9 % (39.6-49.0); Hemoglobin 15.1 g/dL (13.6-17.9); Lymphocytes % 14.2 % (15.3-44.8); MCH 30.3 pg (27.0-35.0); MCHC 34.4 g/dL (32.0-36.0); Monocytes % 6.1 % (3.3-12.3); Neutrophils % 77.2 % (41.7-73.7); Nucleated Red Blood Cells % 0.1 % (0-0); Platelets 274 thou/uL (152-406); RBC Red Blood Cell Count 4.99 M/uL (4.33-5.43)
[2024-07-15 17:05] LABS: Albumin 3.5 g/dL (3.4-5.0); Albumin/Globulin Ratio 0.9 (1.1-1.8); Anion Gap 9.7 mEq/L (5.0-15.0); Bilirubin Total 0.5 mg/dL (0.2-1.0); Globulin 3.8 g/dL (2.3-3.5); Potassium 3.7 mEq/L (3.5-5.1); Protein, Total 7.3 g/dL (6.4-8.2); Troponin High Sensitivity 4.7 pg/mL (<58.9)
--- NOTE | 2024-07-15 18:17 | RAD REPORT ---
EXAM: CT CHEST, ABDOMEN AND PELVIS WITHOUT CONTRAST CLINICAL INDICATION: Chest and abdominal pain. Shortness of breath TECHNIQUE: CT chest, abdomen and pelvis was performed, without IV contrast, as per department protoco l. Axial, sagittal and coronal reconstructions were obtained. One or more of the following dose reduction techniques were used: Automated exposure control, adjustment of the mA and/or kV according to the patient size, and/or iterative reconstruction. Unless otherwise specified, incidental findings do not require dedicated imaging follow-up. The lack of IV and oral contrast limits evaluation of the mediastinum, anitha, vessels, organs and char l. COMPARISON: April and May 2024 FINDINGS: Tiny nodule right lung unchanged likely benign. Coronary arterial ossifications. No mediastinal or hilar lymphadenopathy seen. No pleural effusion. No pericardial effusion. Liver, spleen, pancreas, adrenals and left kidney appear grossly normal. Tiny calculus right kidney. No hydronephrosis. Cholecystectomy. Atherosclerosis. The rectum is mildly distended with stool. There is no evidence of diverticulitis IMPRESSION: Rectum is mildly distended with stool Tiny nonobstructing right renal calculus
[2024-07-15] MEDS ORDERED: droPERidol 5 MG/2 ML VIAL ONE (18:56)
[2024-07-15] MEDS ORDERED: KETOROLAC 30 MG/ML INJ ONE (18:56)
[2024-07-15] MEDS ORDERED: SUCRALFATE 1 GM TABLET ONE (19:56)
[2024-07-15] MEDS ORDERED: METHYLPREDNISOLONE 125 MG INJ ONE (20:44)
[2024-07-15] MEDS ORDERED: LEVALBUTEROL 1.25 MG/3 ML NEB ONE (20:44)
[2024-07-15] MEDS ORDERED: PANTOPRAZOLE 40 MG INJ ONE (20:45)
[2024-07-15] MEDS ORDERED: predniSONE 20 MG TAB ONE (20:45)
[2024-07-15 20:51] LABS: Specific Gravity 1.007 (1.005-1.030); Sqamous Epithelial <5 /HPF (None Seen); Urine Bacteria None Seen /HPF (<20); Urine Bilirubin NEGATIVE (Negative); Urine Blood Negative (Negative); Urine Clarity Clear (Clear); Urine Color Colorless (Yellow); Urine Glucose NEGATIVE (Negative); Urine Ketones NEGATIVE (Negative); Urine Micro Reflex YN NO BILL MICROSCOPIC; Urine Nitrite NEGATIVE (Negative); Urine Protein NEGATIVE (Negative); Urine RBC <5 /HPF (None Seen); Urine Urobilinogen Normal (Normal); Urine WBC <5 /HPF (<5)
--- NOTE | 2024-07-15 21:52 | ER ---
Nurse's Notes [facility] Name: Akin Pugh Age: 54 yrs Sex: Male : 1970 Arrival Date: 07/15/2024 Time: 16:10 Bed 19 Private MD: Diagnosis: Epigastric abdominal tenderness;Dyspnea-hx of Larynx cancer , LARYNGECTOMY;Weakness;Dehydration Presentation: 07/15 16:19 Chief complaint: EMS states: called to patient's home for abdominal pain and shortness cm10 of breath onset 2 days ago that got worse today. pt also reports vomiting and diarrhea. pt recevied zofran and duoneb in route. Coronavirus screen: Client denies travel out of the [place] in the last 14 days. Ebola Screen: Patient denies travel to an Ebola-affected area in the 21 days before illness onset. Initial Sepsis Screen: Does the patient meet any 2 criteria? No. Patient's initial sepsis screen is negative. Does the patient have a suspected source of infection? No. Patient's initial sepsis screen is negative. Risk Assessment: Do you want to hurt yourself or someone else? Patient reports no desire to harm self or others. Onset of symptoms was July 15, 2024. 16:19 Method Of Arrival: EMS: [facility] cm10 16:19 Acuity: PAO 3 cm10 16:21 Care prior to arrival: Medication(s) given: Albuterol Neb Atrovent Neb zofran 4 mg, IV cm10 initiated. 20 GA, in the right antecubital area, Med neb given. Triage Assessment: 16:21 General: Appears in no apparent distress. comfortable, Behavior is calm, cooperative. cm10 Pain: Complains of pain in abdomen Pain currently is 10 out of 10 on a pain scale. Neuro: No deficits noted. Level of Consciousness is awake, alert, obeys commands, Oriented to person, place, time, situation, Appropriate for age. Respiratory: No deficits noted. Airway is patent Respiratory effort is even, unlabored, Respiratory pattern is regular, symmetrical. GI: Reports lower abdominal pain, diarrhea, vomiting. Historical: - Allergies: 16:18 Ampicillin; cm10 16:18 Iodinated Contrast Media - IV Dye; cm10 16:18 Iodine; cm10 16:18 Levaquin; cm10 - PMHx: 16:18 Asthma; COPD; Pancreatitis; THROAT CA; Congestive heart failure; cm10 - PSHx: 16:18 Laryngectomy; tracheostomy; Appendectomy; Cholecystectomy; cm10 - Immunization history:: Adult Immunizations unknown. - Infectious Disease History:: Denies. - Social history:: Smoking status: unknown. - Family history:: not pertinent. Screenin:46 [facility] ED Fall Risk Assessment (Adult) History of falling in the last 3 months, jb4 including since admission No falls in past 3 months (0 pts) Confusion or Disorientation No (0 pts) Intoxicated or Sedated No (0 pts) Impaired Gait No (0 pts) Mobility Assist Device Used No (0 pt) Altered Elimination No (0 pt) Score/Fall Risk Level 0 - 2 = Low Risk Oriented to surroundings, Maintained a safe environment. Abuse screen: Denies threats or abuse. Nutritional screening: No deficits noted. Tuberculosis screening: No symptoms or risk factors identified. Assessment: 16:46 General: Appears in no apparent distress. uncomfortable, ill, Behavior is calm, jb4 cooperative. Pain: Complains of pain in abdomen Pain does not radiate. Pain currently is 10 out of 10 on a pain scale. Neuro: Level of Consciousness is awake, alert, obeys commands, Oriented to person, place, time, situation. Cardiovascular: Patient's skin is warm and dry. Respiratory: Airway is patent via trache Trachea midline Respiratory effort is even, unlabored, Respiratory pattern is regular, symmetrical. GI: Abdomen is flat, non-distended, Reports lower abdominal pain, upper abdominal pain. Derm: Skin is intact, Skin is pink, warm \T\ dry. Musculoskeletal: Circulation, motion, and sensation intact. Range of motion: intact in all extremities. 18:43 Reassessment: Pt continues to report nausea and pain. Provider made aware. cm10 21:36 Reassessment: Patient appears in no apparent distress at this time. Patient and/or cm10 family updated on plan of care and expected duration. Pain level reassessed. Patient is alert, oriented x 3, equal unlabored respirations, skin warm/dry/pink. Patient states symptoms have not improved. 22:05 General: Rec'd patient with no laryngectomy tube in place. Patient states he takes the me1 tube out and hasnt worn one in over 5 years. 23:19 GI: Abd is soft and non tender. me1 23:19 GI: Bowel sounds present X 4 quads. me1 Vital Signs: 16:19 BP 128 / 80; Pulse 89; Resp 19; Temp 98.3(O); Pulse Ox 100% on R/A; Weight 77.11 kg; cm10 Height 5 ft. 11 in. ; Pain 10/10; 19:00 BP 92 / 54; Pulse 65; Resp 15; Pulse Ox 94% ; cm10 21:02 BP 98 / 62; Pulse 51; Resp 15; Pulse Ox 100% ; cm10 21:30 BP 86 / 54; Pulse 58; Resp 15; Pulse Ox 94% on R/A; cm10 22:00 BP 91 / 45; Pulse 64; Resp 15; Pulse Ox 94% ; me1 23:00 BP 85 / 56; Pulse 59; Resp 16; Pulse Ox 94% ; me1 16:19 Body Mass Index 23.71 (77.11 kg, 180.34 cm) cm10 16:19 Pain Scale: Adult cm10 21:30 Pt laying on side. cm10 ED Course: 16:17 Patient arrived in ED. cm10 16:17 Connor Peña MD is Attending Physician. rt 16:20 Triage completed. cm10 16:21 Arm band placed on right wrist. Patient placed in an exam room, on a stretcher. cm10 16:30 Maintain EMS IV. Dressing intact. Good blood return noted. Site clean \T\ dry. Gauge \T\ cm 10 site: 20g right ac. Flushed with 10 mL NS. 16:46 Patient has correct armband on for positive identification. Bed in low position. Call jb4 light in reach. Side rails up X 1. Provided Education on: plan of care. 18:01 Chest Abdomen Pelvis Wo Con CT In Process Unspecified. EDMS 18:04 Attending Physician role handed off by Connor Peña MD [email or web address] 18:04 Austen Mims MD is Attending Physician. [email or web address] 18:38 Lizeth Gonzalez, JEAN is Primary Nurse. cm10 20:13 Attending Physician role handed off by Austen Mims MD kishan 20:13 Ren Bruner MD is Attending Physician. kishan 21:37 No provider procedures requiring assistance completed. cm10 21:50 Jasbir Saini MD is Hospitalizing Provider. kishan 21:52 Report given to JEAN Hardin who assumes care of patient. All questions answered. cm10 22:56 Brigitte Cavazos, JEAN is Primary Nurse. me1 23:19 Patient admitted, IV remains in place. ms1 07/16 07:03 Primary Nurse role handed off by Brigitte Cavazos RN 09:43 Mariam Brooks, JEAN is Primary Nurse. 1 Administered Medications: 07/15 16:48 Drug: Ondansetron IVP 4 mg IVP once; over 2 minutes Route: IVP; Site: right antecubital;jb4 18:51 Follow up: Response: No adverse reaction cm10 16:48 Drug: Albuterol Inhalation 2.5 mg Inhalation once Route: Inhalation; jb4 16:48 Drug: Ipratropium Inhalation Aerosol 0.5 mg Inhalation once Route: Inhalation; jb4 16:49 Drug: morphine IVP or IV 4 mg IVP once over 4 mins Route: IVP; Infused Over: 4 mins; jb4 Site: right antecubital; 18:51 Follow up: Response: No adverse reaction cm10 16:49 Drug: NS 0.9% IV 1000 ml IV at 1 bolus Per protocol; to be given as a bolus over 60 jb4 minutes Route: IV; Rate: 1 bolus; Site: right antecubital; 23:27 Follow up: Response: No adverse reaction; IV Status: Completed infusion; IV Intake: me1 1000ml 18:55 Not Given (Physician Discretion): morphineor iv 2 mg IVP once over 4 mins cm10 19:01 Drug: Ketorolac IVP 15 mg IVP once Route: IVP; Site: right antecubital; cm10 20:30 Follow up: Response: No adverse reaction cm10 19:01 Drug: Droperidol IVP 0.625 mg IVP once Route: IVP; Site: right antecubital; cm10 20:30 Follow up: Response: No adverse reaction cm10 20:00 Drug: Sucralfate PO 1 grams PO once Route: PO; cm10 20:30 Follow up: Response: No adverse reaction cm10 20:56 Drug: Levalbuterol Inhalation 2.5 mg Inhalation once Route: Inhalation; cm10 23:01 Follow up: Response: No adverse reaction me1 20:56 Drug: MethylPrednisoLONE IVP 125 mg IVP once Route: IVP; Site: right antecubital; cm10 21:36 Follow up: Response: No adverse reaction cm10 20:56 Drug: predniSONE PO 40 mg PO once Route: PO; cm10 21:36 Follow up: Response: No adverse reaction cm10 20:56 Drug: Pantoprazole IVP 40 mg IVP once Route: IVP; Site: right antecubital; cm10 21:36 Follow up: Response: No adverse reaction cm10 20:56 Drug: NS 0.9% IV 1000 ml IV at 1000 ml once; to be given as a bolus over 60 minutes cm10 Route: IV; Rate: 1000 ml; Site: right antecubital; 21:52 Follow up: Response: No adverse reaction; IV Status: Completed infusion; IV Intake: cm10 1000ml Medication: 16:46 VIS not applicable for this client. jb4 Intake: 21:52 IV: 1000ml; Total: 1000ml. cm10 23:27 IV: 1000ml; Total: 2000ml. me1 Outcome: 21:51 Decision to Hospitalize by Provider. kishan 23:19 Admitted to ER Hold. Please see [facility] for further documentation. me1 23:19 Condition: stable 23:19 Instructed on the need for admit, 07/16 14:49 Admitted to Med/surg accompanied by tech, via wheelchair, room 229, with chart, Report me1 called to faxed, notified [facility] smokehouse worker that report was faxed. Condition: stable Instructed on the need for admit, 15:21 Patient left the ED. me1 Signatures: Dispatcher [employer] EDMS Sherry Garner Corey, MD MD cha Bryson, James, JEAN PENA jb4 Mariam Brooks RN RN ll1 Austen Mims MD MD [email or web address] Connor Peña MD MD rt Lizeth Gonzalez RN RN cm10 Brigitte Cavazos RN RN me1
--- NOTE | 2024-07-15 21:52 | EDPHYS ---
Physician Documentation [facility] Name: Akin Pugh Age: 54 yrs Sex: Male : 1970 Arrival Date: 07/15/2024 Time: 16:10 Bed 19 Private MD: ALEJANDRA Physician Ren Bruner HPI: 07/15 16:31 This 54 yrs old Male presents to ER via EMS with complaints of Abdominal Pain, rt Shortness Of Breath. 16:31 Presents to the ED with abdominal pain, nausea, vomiting, diarrhea consistent with rt previous episodes of pancreatitis per his report. She reports dyspnea due to his COPD. Received a DuoNeb which improved his symptoms also improved his nausea. Reports continued abdominal pain, symptoms are moderate in severity, no other aggravating or. Historical: - Allergies: 16:18 Ampicillin; cm10 16:18 Iodinated Contrast Media - IV Dye; cm10 16:18 Iodine; cm10 16:18 Levaquin; cm10 - PMHx: 16:18 Asthma; COPD; Pancreatitis; THROAT CA; Congestive heart failure; cm10 - PSHx: 16:18 Laryngectomy; tracheostomy; Appendectomy; Cholecystectomy; cm10 - Immunization history:: Adult Immunizations unknown. - Infectious Disease History:: Denies. - Social history:: Smoking status: unknown. - Family history:: not pertinent. ROS: 16:31 Constitutional: Negative for fever, chills, and weight loss, Cardiovascular: Negative rt for chest pain, palpitations, and edema, MS/Extremity: Negative for injury and deformity, Skin: Negative for injury, rash, and discoloration, Neuro: Negative for headache, weakness, numbness, tingling, and seizure, 16:31 Respiratory: Positive for cough, shortness of breath, 16:31 Abdomen/GI: Positive for abdominal pain, nausea, vomiting, and diarrhea, Exam: 16:31 Constitutional: This is a well developed, well nourished patient who is awake, alert, rt and in no acute distress. Head/Face: Normocephalic, atraumatic. Chest/axilla: Normal chest wall appearance and motion. Nontender with no deformity. No lesions are appreciated. Cardiovascular: Regular rate and rhythm with a normal S1 and S2. No gallops, murmurs, or rubs. Normal PMI, no JVD. No pulse deficits. Skin: Warm, dry with normal turgor. Normal color with no rashes, no lesions, and no evidence of cellulitis. MS/ Extremity: Pulses equal, no cyanosis. Neurovascular intact. Full, normal range of motion. Neuro: Awake and alert, GCS 15, oriented to person, place, time, and situation. Cranial nerves II-XII grossly intact. Motor strength 5/5 in all extremities. Sensory grossly intact. Cerebellar exam normal. Normal gait. 16:31 Neck: Tracheostomy in place, 16:31 Respiratory: Wheezes heard on the lung ritter, no respiratory distress, 16:31 Abdomen/GI: Tenderness diffusely, no rebound, guarding, distention, 16:46 ECG was reviewed by the Attending Physician. rt Vital Signs: 16:19 BP 128 / 80; Pulse 89; Resp 19; Temp 98.3(O); Pulse Ox 100% on R/A; Weight 77.11 kg; cm10 Height 5 ft. 11 in. ; Pain 10/10; 19:00 BP 92 / 54; Pulse 65; Resp 15; Pulse Ox 94% ; cm10 21:02 BP 98 / 62; Pulse 51; Resp 15; Pulse Ox 100% ; cm10 21:30 BP 86 / 54; Pulse 58; Resp 15; Pulse Ox 94% on R/A; cm10 22:00 BP 91 / 45; Pulse 64; Resp 15; Pulse Ox 94% ; me1 23:00 BP 85 / 56; Pulse 59; Resp 16; Pulse Ox 94% ; me1 16:19 Body Mass Index 23.71 (77.11 kg, 180.34 cm) cm10 16:19 Pain Scale: Adult cm10 21:30 Pt laying on side. cm10 MDM: 16:17 Medical Screening Exam initiated rt 18:05 Transition of care: After a detail discussion of the patient's case, care is rt transferred to Austen Mims MD. 21:54 Differential diagnosis: Anemia asthma, Bronchitis CHF exacerbation, Chronic Obstructive kishan Pulmonary Disease pneumonia, pulmonary edema, reactive airway disease, Sepsis Unstable Angina. Antibiotic administration: Not indicated. Immunization status: Influenza vaccine: within last 5 years. Data reviewed: vital signs, nurses notes, EMS record, lab test result(s), EKG, radiologic studies, CT scan, plain films. Consideration of Admission/Observation Patient was admitted/placed on observation. Escalation of care including admission/observation considered. I considered the following discharge prescriptions or medication management in the emergency department Medications were administered in the Emergency Department. See MAR. Independent interpretation of the following test(s) in the Emergency Department EKG: See my EKG interpretation above. Test considered but Not performed: Ultrasound NO ABD USG. Care significantly affected by the following chronic conditions: Congestive Heart Failure, Chronic Obstructive Pulmonary Disease, Cancer, ASTHMA, LARYGECTOMY. Counseling: I had a detailed discussion with the patient and/or guardian regarding the historical points, exam findings, and any diagnostic results supporting the discharge/admit diagnosis, lab results, radiology results, the need for further work-up and treatment in the hospital. 07/15 16:20 Order name: CBC with Diff; Complete Time: 17:10 rt 07/15 16:20 Order name: CMP; Complete Time: 17:10 rt 07/15 16:20 Order name: Lipase; Complete Time: 17:10 rt 07/15 16:20 Order name: NT PRO-BNP; Complete Time: 17:10 rt 07/15 16:20 Order name: Troponin HS; Complete Time: 17:10 rt 07/15 17:11 Order name: UAM; Complete Time: 21:47 rt 07/15 21:51 Order name: Sputum Culture vc1 07/15 23:12 Order name: CBC with Automated Diff EDMS 07/15 23:12 Order name: CBC with Automated Diff EDMS 07/15 23:12 Order name: Comprehensive Metabolic Panel EDMS 07/15 23:12 Order name: Comprehensive Metabolic Panel EDMS 07/15 23:12 Order name: Troponin High Sensitivity EDMS 07/15 23:12 Order name: Troponin High Sensitivity EDMS 07/15 23:12 Order name: Troponin High Sensitivity EDMS 07/15 23:12 Order name: Troponin High Sensitivity EDMS 07/16 05:18 Order name: Manual Differential EDMS 07/15 17:11 Order name: Chest Abdomen Pelvis Wo Con CT; Complete Time: 18:25 rt 07/15 16:20 Order name: EKG; Complete Time: 16:21 rt 07/15 16:20 Order name: IV Saline Lock; Complete Time: 16:49 rt 07/15 16:20 Order name: Labs collected and sent; Complete Time: 16:49 rt 07/15 16:20 Order name: Cardiac monitoring; Complete Time: 16:48 rt 07/15 16:20 Order name: EKG - Nurse/Tech; Complete Time: 16:48 rt 07/15 16:20 Order name: O2 Per Protocol; Complete Time: 16:32 rt 07/15 16:20 Order name: O2 Sat Monitoring; Complete Time: 16:32 rt EC:46 Rate is 83 beats/min. Rhythm is regular, Normal Sinus Rhythm with No ectopy. QRS [place] rt is Normal. ME interval is normal. QRS interval is normal. QT interval is normal. No Q waves. T waves are Normal. No ST changes noted. Interpreted by me. Administered Medications: 16:48 Drug: Ondansetron IVP 4 mg IVP once; over 2 minutes Route: IVP; Site: right antecubital;jb4 18:51 Follow up: Response: No adverse reaction cm10 16:48 Drug: Albuterol Inhalation 2.5 mg Inhalation once Route: Inhalation; jb4 16:48 Drug: Ipratropium Inhalation Aerosol 0.5 mg Inhalation once Route: Inhalation; jb4 16:49 Drug: morphine IVP or IV 4 mg IVP once over 4 mins Route: IVP; Infused Over: 4 mins; jb4 Site: right antecubital; 18:51 Follow up: Response: No adverse reaction cm10 16:49 Drug: NS 0.9% IV 1000 ml IV at 1 bolus Per protocol; to be given as a bolus over 60 jb4 minutes Route: IV; Rate: 1 bolus; Site: right antecubital; 23:27 Follow up: Response: No adverse reaction; IV Status: Completed infusion; IV Intake: me1 1000ml 18:55 Not Given (Physician Discretion): morphineor iv 2 mg IVP once over 4 mins cm10 19:01 Drug: Ketorolac IVP 15 mg IVP once Route: IVP; Site: right antecubital; cm10 20:30 Follow up: Response: No adverse reaction cm10 19:01 Drug: Droperidol IVP 0.625 mg IVP once Route: IVP; Site: right antecubital; cm10 20:30 Follow up: Response: No adverse reaction cm10 20:00 Drug: Sucralfate PO 1 grams PO once Route: PO; cm10 20:30 Follow up: Response: No adverse reaction cm10 20:56 Drug: Levalbuterol Inhalation 2.5 mg Inhalation once Route: Inhalation; cm10 23:01 Follow up: Response: No adverse reaction me1 20:56 Drug: MethylPrednisoLONE IVP 125 mg IVP once Route: IVP; Site: right antecubital; cm10 21:36 Follow up: Response: No adverse reaction cm10 20:56 Drug: predniSONE PO 40 mg PO once Route: PO; cm10 21:36 Follow up: Response: No adverse reaction cm10 20:56 Drug: Pantoprazole IVP 40 mg IVP once Route: IVP; Site: right antecubital; cm10 21:36 Follow up: Response: No adverse reaction cm10 20:56 Drug: NS 0.9% IV 1000 ml IV at 1000 ml once; to be given as a bolus over 60 minutes cm10 Route: IV; Rate: 1000 ml; Site: right antecubital; 21:52 Follow up: Response: No adverse reaction; IV Status: Completed infusion; IV Intake: cm10 1000ml Disposition Summary: 07/15/24 21:51 Hospitalization Ordered Notes: Hospitalization Status: Inpatient Admission kishan Provider: Jasbir Saini cha Condition: Fair kishan Problem: new kishan Symptoms: have improved kishan Bed/Room Type: Standard kishan Location: Telemetry/MedSurg (Inpatient)(07/16/24 14:33) sp Room Assignment: 229(07/16/24 14:33) sp Diagnosis - Epigastric abdominal tenderness kishan - Dyspnea - hx of Larynx cancer , LARYNGECTOMY kishan - Weakness kishan - Dehydration kishan Forms: - Medication Reconciliation Form kishan - SBAR form kishan - Leadership Thank You Letter kishan Signatures: Dispatcher [employer] EDRen Pereira MD MD cha Pinkerton, Shawna sp Bryson, James, RN RN jb4 Lashawn Powers RN RN vc1 Austen Mims MD MD [id number] Connor Peña MD MD rt Lizeth Gonzalez RN RN cm10 Brigitte Cavazos RN me1 Corrections: (The following items were deleted from the chart) 16:21 16:20 CBC+H.LAB.BRZ ordered. EDMS EDMS 16:21 16:20 COMPREHENSIVE METABOLIC PANEL+C.LAB.BRZ ordered. EDMS EDMS 16:21 16:20 LIPASE+C.LAB.BRZ ordered. EDMS EDMS 16:21 16:20 PROBNP+C.LAB.BRZ ordered. EDMS EDMS 16:21 16:20 Troponin High Sensitivity+C.LAB.BRZ ordered. EDMS EDMS 17:16 16:20 Abdomen Pelvis Wo Con+CT.RAD.BRZ ordered. EDMS EDMS 18:00 16:20 Chest Single View+RAD.RAD.BRZ ordered. EDMS EDMS 21:51 21:51 Sputum Culture+BA.LAB.BRZ ordered. EDMS EDMS 07/16 00:12 07/15 21:51 Telemetry/MedSurg (Inpatient) kishan vc1 07/16 00:12 07/15 21:51 kishan vc1 07/16 14:33 00:12 [facility] ER HOLD vc1 sp 14:33 00:12 ERHOLD- vc1 sp
--- NOTE | 2024-07-15 23:03 | P.HP ---
Certification for Inpatient Patient admitted to: Inpatient With expected LOS: >2 Midnights Practitioner: I am a practitioner with admitting privileges, knowledge of patient current condition, hospital course, and medical plan of care. Services: Services provided to patient in accordance with Admission requirements found in Title 42 Section 412.3 of the Code of Federal Regulations Patient History Date of Service: 07/16/24 Reason for admission: SOB History of Present Illness: 54 yrs old Male with past medical history of asthma; COPD; chronic pancreatitis; and history of throat cancer Status post laryngectomy, tracheostomy, CHF came in with abdominal pain which has been progressively worsening over the last 3 days. Pain is sharp epigastric in location associate with nausea vomiting. Similar to the previous episodes of pancreatitis. Denies any fever or chills. Denies any sick contacts. No aggravating or alleviating factors. Patient states that the pain is not relieved by the home medications and pain medications hence was brought to the ER. Patient is also complains of shortness of breath which has been progressively worsening over the last 2 days Patient was assessed in the ER and was admitted for acute on chronic pancreatitis and COPD exacerbation Allergies levofloxacin [From Levaquin] Allergy (Severe, Verified 03/30/24 05:25) Itching/Hives/Rash ampicillin Allergy (Verified 03/30/24 05:25) Itching/Hives/Rash iodine Allergy (Verified 03/30/24 05:25) Hives/Rash Home medications list reviewed: Yes Home Medications: Escitalopram [Lexapro*] 20 mg PO DAILY #30 tab 02/16/21 Gabapentin [Neurontin*] 800 mg PO TID 12/11/22 Lipase/Protease/Amylase [[place]o Falcon 12,000 Units Capsule] 1 tab PO TID 12/11/22 Levothyroxine [Synthroid*] 0.1 mg PO [id number] 05/14/23 Pantoprazole Sodium [Protonix] 40 mg PO DAILY 06/06/23 Lactobacillus Acidophilus 1 each PO DAILY #30 cap 04/08/24 Oxycodone HCl/Acetaminophen [Oxycodone-Acetaminophn 7.5-325] 1 tab PO BID #15 tab 04/08/24 Simethicone [Mylanta Gas Minis] 125 mg PO TID #90 tab.chew 04/08/24 - Past Medical/Surgical History Diabetic: No Past Medical History: Reviewed- Non-Contributory -: Asthma -: Depression -: Throat cancer status post complete laryngectomy/reconstruction 06/2018 -: Recurrent postop infection -: Chronic pain -: Former tobacco use -: Surgical hypothyroidism -: neuropathy -: Pancreatitis/duodenitis Past Surgical History: Reviewed- Non-Contributory -: Tracheostomy -: Appendectomy -: Complete laryngectomy with reconstruction -: knee surgery bilateral knees -: Thyroidectomy Psychosocial/ Personal History: Patient is . He has 3 children. - Family History Father -: Heart disease, Diabetes Notes: agent orange: immobile Mother -: Cancer Notes: breast ca - Social History Smoking Status: Former smoker Alcohol use: No CD- Drugs: No Caffeine use: Yes Review of Systems 10-point ROS is otherwise unremarkable Physical Examination - Vital Signs Temperature: 98.3 F Blood Pressure: 118/61 Pulse: 58 Respirations: 18 Pulse Ox (%): 94 - Physical Exam General: Alert, Oriented x3, Cooperative HEENT: Atraumatic, Normocephalic Neck: Supple Respiratory: Diminished, Expiratory wheezes Cardiovascular: Regular rate/rhythm, Normal S1 S2 Capillary refill: <2 Seconds Gastrointestinal: W/out hepatosplenomegaly, Tenderness Musculoskeletal: No clubbing, No swelling Integumentary: No rashes Neurological: Other (Alert awake nonfocal) Lymphatics: No axilla or inguinal lymphadenopathy - Studies Laboratory Data (last 24 hrs) 07/15/24 07/15/24 16:39 16:39 WBC 8.30 Hgb 15.1 Hct 43.9 Plt Count 274 Sodium 134 L Potassium 3.7 BUN 20 H Creatinine 1.08 Glucose 95 Total Bilirubin 0.5 AST 12 L ALT 25 Alkaline Phosphatase 105 Lipase 41 Assessment and Plan - Plan Acute on chronic pancreatitis N.p.o. for now IV hydration Pain control Continue home medications Lipase is normal Patient had multiple CTs in the past Monitor LFTs COPD exacerbation Started on bronchodilators Will add on steroids Oxygen supplementation as needed Will try to wean down oxygen requirement Continue home medications and titrate as needed GERD Continue IV PPI Pain control Monitor closely Hyponatremia Started on IV hydration GI/DVT prophylaxis Advance directive full code Discharge Plan: Home Plan to discharge in: 48 Hours - Advance Directives Does patient have a Living Will: No Does patient have a Durable POA for Healthcare: No - Code Status/Comfort Care Code Status: Full Code Time Spent Managing Pts Care (In Minutes): 48
[2024-07-15] MEDS ORDERED: ALBUTEROL 2.5 MG/3 ML NEB SOL NEB PRN (23:07)
[2024-07-15 23:36] VITALS: BMI 23.7
[2024-07-16] MEDS ORDERED: HEPARIN 5000 UNIT/ML 1 ML VIAL ONE ×2 (00:58→08:29)
[2024-07-16] MEDS: HEPARIN 5000 UNIT/ML 1 ML VIAL SQ SCH (00:59)
[2024-07-16 04:39] LABS: Absolute Lymphocytes (CBC) 0.3 K/uL (0.7-4.9); Absolute Monocytes 0.1 K/uL (0.1-1.3); Absolute Neutrophil 7.2 K/uL (1.8-8.0); Basophils % 0.2 % (0-1.3); Hematocrit 42.6 % (39.6-49.0); Hemoglobin 14.4 g/dL (13.6-17.9); MCH 29.8 pg (27.0-35.0); MCHC 33.9 g/dL (32.0-36.0); MCV 87.8 fL (80-100); Monocytes % 0.9 % (3.3-12.3); Neutrophils % 94.9 % (41.7-73.7); Platelets 249 thou/uL (152-406); RBC Red Blood Cell Count 4.85 M/uL (4.33-5.43); Red Cell Distribution Width 17.2 % (12.1-15.2)
[2024-07-16] MEDS ORDERED: SODIUM CHLORIDE 0.9% 10ML INJ IV PRN (04:54)
[2024-07-16] MEDS: NA CHLORIDE 0.9% 1,000 ML IV SCH (05:00)
[2024-07-16 05:09] LABS: Albumin 3.3 g/dL (3.4-5.0); Anion Gap 10.1 mEq/L (5.0-15.0); Bilirubin Total 0.3 mg/dL (0.2-1.0); Globulin 3.4 g/dL (2.3-3.5); Potassium 4.1 mEq/L (3.5-5.1); Protein, Total 6.7 g/dL (6.4-8.2)
[2024-07-16 05:17] LABS: Band Neutrophils 9 % (0-1); Differential Total Cells Count 100; Lymphocytes 6 % (15-42); Monocytes 1 % (0-10); Reactive Lymphocytes 2 %; Segmented Neutrophils 82 % (40-80)
[2024-07-16 05:18] LABS: Blood Morphology Comment NOT SEEN (NOT SEEN); Platelet Estimate ADEQ
[2024-07-16] MEDS ORDERED: PANTOPRAZOLE 40 MG INJ ONE (08:29)
[2024-07-16] MEDS ORDERED: ONDANSETRON 4 MG/2 ML VIAL ONE (08:29)
[2024-07-16] MEDS ORDERED: HYDROCODONE/APAP 5/325 MG TAB ONE (08:29)
[2024-07-16] MEDS ORDERED: NA CHLORIDE 0.9% 500 ML ONE (08:30)
[2024-07-16] MEDS: PANTOPRAZOLE 40 MG INJ IVP SCH (09:00)
[2024-07-16] MEDS: HYDROCODONE/APAP 5/325 MG TAB PO PRN (09:45)
[2024-07-16] MEDS: ONDANSETRON 4 MG/2 ML VIAL IV PRN (09:46)
[2024-07-16] MEDS ORDERED: MORPHINE 2 MG/ML SYR ONE (09:50)
[2024-07-16] MEDS: MORPHINE 2 MG/ML SYR IV PRN (09:50)
--- NOTE | 2024-07-16 15:48 | P.PN ---
Subjective Date of Service: 07/16/24 Chief Complaint: SOB Patient is complaining of abdominal pain. He reports nausea but no vomiting. Physical Examination - Vital Signs Temperature: 98.3 F Blood Pressure: 91/45 Pulse: 64 Respirations: 15 Pulse Ox (%): 99 - Studies Laboratory Data (last 24 hrs) 07/15/24 07/15/24 16:39 16:39 WBC 8.30 Hgb 15.1 Hct 43.9 Plt Count 274 Sodium 134 L Potassium 3.7 BUN 20 H Creatinine 1.08 Glucose 95 Total Bilirubin 0.5 AST 12 L ALT 25 Alkaline Phosphatase 105 Lipase 41 Assessment And Plan - Plan Physical examination General: Alert and oriented x3, NAD, HEENT: Conjunctiva not pale, anicteric sclera Neck: Tracheostomy stoma Heart: Heart sounds 1 and 2 normal, regular rhythm, normal rate, no pedal edema Lungs: Clear to auscultation bilaterally, adequate breath sounds bilaterally, no rhonchi or crackles. Abdomen: Soft, nondistended, diffuse tenderness, normal bowel sounds. Extremities: No tenderness, no deformity Skin: Normal skin turgor, no rash, no nodules or ulcers. Neuro: No focal motor deficit. Normal speech. Psychiatry: Normal mood, no agitation. Diagnosis Acute on chronic pancreatitis COPD exacerbation GERD Hyponatremia Plan: Acute on chronic pancreatitis Keep n.p.o. Supportive measures with IV hydration Analgesics as needed Lipase is normal. Monitor lipase level, Monitor LFTs COPD exacerbation History of tracheostomy Continue bronchodilators. Oxygen supplementation as needed Continue home medications and titrate as needed GERD Continue IV PPI Analgesics as needed Hyponatremia Resolved with IV hydration. DVT prophylaxis: Lovenox Advanced directive: Full code
[2024-07-16] MEDS: LIPASE/PROTEASE/AMYLASE CAP PO SCH (16:23)
[2024-07-16] MEDS: SIMETHICONE 125 MG TAB PO SCH (21:20)
[2024-07-16] MEDS: MORPHINE 4 MG/ML SYR IV PRN (21:39)
[2024-07-17] MEDS: LEVOTHYROXINE SOD 0.1 MG TAB PO SCH (06:00)
[2024-07-17] MEDS: ESCITALOPRAM 20 MG TAB PO SCH (08:05)
--- NOTE | 2024-07-17 16:52 | P.PN ---
Subjective Date of Service: 07/17/24 Chief Complaint: SOB Patient reports persistent abdominal pain and not tolerating liquids. He denies any vomiting. Physical Examination - Vital Signs Temperature: 98.2 F Blood Pressure: 122/88 Pulse: 73 Respirations: 18 Pulse Ox (%): 97 Assessment And Plan - Plan Physical examination General: Alert and oriented x3, NAD, HEENT: Anicteric sclera Neck: Tracheostomy stoma Heart: Heart sounds 1 and 2 normal, regular rhythm, normal rate, no pedal edema Lungs: Clear to auscultation bilaterally, adequate breath sounds bilaterally, no rhonchi or crackles. Abdomen: Soft, nondistended, diffuse tenderness, normal bowel sounds. Extremities: No tenderness, no deformity Skin: Normal skin turgor, no rash, no nodules or ulcers. Neuro: No focal motor deficit. Normal speech. Psychiatry: Normal mood, no agitation. Diagnosis Acute on chronic pancreatitis COPD exacerbation GERD Hyponatremia Plan: Acute on chronic pancreatitis Clear liquid diet Supportive measures with IV hydration Analgesics as needed Lipase is normal. Monitor lipase level, LFTs trended up from yesterday. Continue to monitor LFT COPD exacerbation History of tracheostomy Stable Continue bronchodilators. Oxygen supplementation as needed Continue home medications and titrate as needed GERD IV PPI Analgesics as needed Hyponatremia Resolved with IV hydration. DVT prophylaxis: Lovenox Advanced directive: Full code
[2024-07-18 06:15] LABS: Albumin/Globulin Ratio 0.9 (1.1-1.8); Anion Gap 6.1 mEq/L (5.0-15.0); Bilirubin Total 0.3 mg/dL (0.2-1.0); Globulin 3.5 g/dL (2.3-3.5); Potassium 4.1 mEq/L (3.5-5.1); Protein, Total 6.5 g/dL (6.4-8.2)
--- NOTE | 2024-07-18 15:35 | P.PN ---
Subjective Date of Service: 07/18/24 Chief Complaint: SOB Patient reports some improvement in his abdominal pain. He is tolerating liquids but not solids. Physical Examination - Vital Signs Temperature: 98.0 F Blood Pressure: 123/66 Pulse: 67 Respirations: 16 Pulse Ox (%): 96 Assessment And Plan - Plan Physical examination General: Alert and oriented x3, NAD, HEENT: Anicteric sclera Neck: Tracheostomy stoma Heart: Heart sounds 1 and 2 normal, regular rhythm, normal rate, no pedal edema Lungs: Clear to auscultation bilaterally, adequate breath sounds bilaterally, no rhonchi or crackles. Abdomen: Soft, nondistended, diffuse tenderness, normal bowel sounds. Extremities: No tenderness, no deformity Skin: Normal skin turgor, no rash, no nodules or ulcers. Neuro: No focal motor deficit. Normal speech. Psychiatry: Normal mood, no agitation. Diagnosis Acute on chronic pancreatitis COPD exacerbation GERD Hyponatremia Plan: Acute on chronic pancreatitis Full liquid diet as tolerated Continue IV fluid Analgesics as needed Lipase is normal. LFT is relatively stable. Continue to monitor LFT COPD exacerbation History of tracheostomy Stable Continue bronchodilators. Oxygen supplementation as needed Continue home medications and titrate as needed GERD Continue IV PPI Analgesics as needed Hyponatremia Resolved with IV hydration. Stable. DVT prophylaxis: Lovenox Advanced directive: Full code
[2024-07-19] MEDS: DULERA 100/5 (MOMETASONE/FORMOTEROL) INHALER IH SCH (09:00)
[2024-07-19] MEDS: HOME MED 1 EA UNK (Oxycodone Hcl/Acetaminophen [Oxycodone-Acetaminophn 7.5-325] Tablet) PO SCH (09:00)
[2024-07-19] MEDS: PANTOPRAZOLE 40MG TABLET PO SCH (09:05)
[2024-07-19] MEDS: GABAPENTIN 400 MG CAP PO SCH (09:05)
[2024-07-19] MEDS: ARIPiprazole 5 MG TAB PO SCH (09:05)
[2024-07-19] MEDS: LACTOBACILLUS/ACIDOPHILUS TAB PO SCH (09:05)
--- NOTE | 2024-07-19 14:16 | P.PN ---
Subjective Date of Service: 07/19/24 Chief Complaint: SOB Patient reports improvement in his abdominal pain and tolerating full liquid diet. Physical Examination - Vital Signs Temperature: 98.0 F Blood Pressure: 114/65 Pulse: 65 Respirations: 18 Pulse Ox (%): 99 Assessment And Plan - Plan Physical examination General: Alert and oriented x3, NAD, HEENT: Anicteric sclera Neck: Tracheostomy stoma Heart: Heart sounds 1 and 2 normal, regular rhythm, normal rate, no pedal edema Lungs: Clear to auscultation bilaterally, adequate breath sounds bilaterally, no rhonchi or crackles. Abdomen: Soft, nondistended, diffuse tenderness, normal bowel sounds. Skin: Normal skin turgor, no rash. Neuro: No focal motor deficit. Normal speech. Psychiatry: Normal mood, no agitation. Diagnosis Acute on chronic pancreatitis COPD exacerbation GERD Hyponatremia Plan: Acute on chronic pancreatitis Advance to solid diet Continue IV fluid Analgesics as needed Lipase has been normal Anticipating discharge in a.m. if patient tolerates solid diet. COPD exacerbation History of tracheostomy Stable Continue bronchodilators. Oxygen supplementation as needed Continue home medications and titrate as needed GERD Continue IV PPI Analgesics as needed Hyponatremia Resolved with IV hydration. Stable. DVT prophylaxis: Lovenox Advanced directive: Full code
[2024-07-19] MEDS: ATORVASTATIN 80 MG TAB PO SCH (20:01)
[2024-07-19] MEDS: Oxycodone HCl/Acetaminophen 5/325 MG TAB PO SCH (20:02)
[2024-07-20] MEDS: ACETAMINOPHEN 325 MG TABLET PO PRN (02:09)
--- NOTE | 2024-07-20 13:59 | P.DS ---
Admission Date: 07/15/24 Discharge Date: 07/20/24 Disposition: ROUTINE DISCHARGE Discharge Condition: FAIR Reason for Admission: SOB Brief History of Present Illness: 54 yrs old Male with past medical history of asthma; COPD; chronic pancreatitis; and history of throat cancer status post laryngectomy, tracheostomy, CHF came in with abdominal pain which has been progressively worsening over 3 days. Patient have had similar previous episodes of pancreatitis. Patient is also complains of shortness of breath which has been progressively worsening over 2 days Patient was assessed in the ER, CT chest, abdomen and pelvis showed tiny right lung nodules, and rectal distention with stool otherwise unremarkable. Patient was admitted for acute on chronic pancreatitis and COPD exacerbation. Hospital Course: Diagnosis Acute on chronic pancreatitis COPD exacerbation GERD Hyponatremia Patient admitted to the medical floor and following medical problems addressed: Acute on chronic pancreatitis Patient treated with supportive measures including IV hydration and analgesics and antiemetics Lipase level was normal. Diet gradually advanced during the course of hospitalization. Patient is currently tolerating solid diet COPD exacerbation History of tracheostomy Stable Patient treated with bronchodilators. Patient has been stable on room air. GERD Patient treated with IV PPI. Oral Protonix resumed on discharge. Hyponatremia Resolved with IV hydration. Stable. Vital Signs/Physical Exam: Temp Pulse Resp BP Pulse Ox 98.2 F 56 16 108/60 100 07/20/24 12:00 07/20/24 12:00 07/20/24 12:00 07/20/24 12:00 07/20/24 12:00 General: Alert, In no apparent distress, Oriented x3 Neck: Other (Tracheostomy) Respiratory: Clear to auscultation bilaterally, Normal air movement Cardiovascular: Regular rate/rhythm, Normal S1 S2 Gastrointestinal: Soft and benign, Non-distended, No tenderness Musculoskeletal: No swelling Integumentary: No rashes, No cyanosis Neurological: Normal strength at 5/5 x4 extr Laboratory Data at Discharge: WBC 7.60 thou/uL (4.3-10.9) 07/16/24 04:10 Hgb 14.4 g/dL (13.6-17.9) 07/16/24 04:10 Hct 42.6 % (39.6-49.0) 07/16/24 04:10 Plt Count 249 thou/uL (152-406) 07/16/24 04:10 Sodium 140 mEq/L (136-145) 07/18/24 05:26 Potassium 4.1 mEq/L (3.5-5.1) 07/18/24 05:26 BUN 13 mg/dL (7-18) 07/18/24 05:26 Creatinine 0.84 mg/dL (0.70-1.30) 07/18/24 05:26 Glucose 94 mg/dL (74-106) 07/18/24 05:26 Total Bilirubin 0.3 mg/dL (0.2-1.0) 07/18/24 05:26 AST 67 U/L (15-37) H 07/18/24 05:26 ALT 99 U/L (16-61) H 07/18/24 05:26 Alkaline Phosphatase 133 U/L (45-117) H 07/18/24 05:26 Lipase 65 U/L (13-75) 07/18/24 05:26 Home Medications: Escitalopram [Lexapro*] 20 mg PO DAILY #30 tab 02/16/21 Gabapentin [Neurontin*] 800 mg PO TID 12/11/22 Lipase/Protease/Amylase [Creon Dr 12,000 Units Capsule] 1 tab PO TID 12/11/22 Levothyroxine [Synthroid*] 0.1 mg PO [id number] 05/14/23 Pantoprazole Sodium [Protonix] 40 mg PO DAILY 06/06/23 Lactobacillus Acidophilus 1 each PO DAILY #30 cap 04/08/24 Oxycodone HCl/Acetaminophen [Oxycodone-Acetaminophn 7.5-325] 1 tab PO BID #15 tab 04/08/24 Simethicone [Mylanta Gas Minis] 125 mg PO TID #90 tab.chew 04/08/24 ARIPiprazole [Abilify*] 5 mg PO DAILY 07/18/24 Albuterol Sulfate [Albuterol Sulfate Hfa] 2 aero IH BID 07/18/24 Atorvastatin Calcium [Lipitor] 80 mg PO BEDTIME 07/18/24 Fluticasone Propion/Salmeterol [Fluticasone-Salmeterol 100-50] 1 mcg IH DAILY 07/18/24 Diet: Regular Activity: Ad get Followup: Michelle Justice NP [Primary Care Provider] - 1-2 Weeks Time spent managing pt's care (in minutes): 35
--- NOTE | 2024-07-20 14:54 | RAD REPORT ---
Procedure: Chest Single View HISTORY: Increased tracheal secretions COMPARISON: May 2024 FINDINGS: The lungs appear clear of acute infiltrate. No significant pleural effusion noted. The heart is normal size. IMPRESSION: No acute abnormality is displayed.
--- NOTE | 2024-07-20 15:44 | P.PN ---
Subjective Date of Service: 07/20/24 Chief Complaint: SOB Patient reports improvement in his abdominal pain and tolerating solid diet however he is complaining of increased secretion from his trachea and coughing. He also reports shortness of breath. Physical Examination - Vital Signs Temperature: 98.2 F Blood Pressure: 108/60 Pulse: 56 Respirations: 18 Pulse Ox (%): 100 Assessment And Plan - Plan Physical examination General: Alert and oriented x3, NAD, HEENT: Anicteric sclera Neck: Tracheostomy stoma Heart: Heart sounds 1 and 2 normal, regular rhythm, normal rate, no pedal edema Lungs: Clear to auscultation bilaterally, adequate breath sounds bilaterally, no rhonchi or crackles. Abdomen: Soft, nondistended, diffuse tenderness, normal bowel sounds. Skin: Normal skin turgor, no rash. Neuro: No focal motor deficit. Normal speech. Psychiatry: Normal mood, no agitation. Diagnosis Acute on chronic pancreatitis COPD exacerbation GERD Hyponatremia Plan: Acute on chronic pancreatitis Patient is tolerating solid diet Discontinue IV fluid. Analgesics as needed Lipase has been normal COPD exacerbation History of tracheostomy Patient reports tracheal increased secretion Continue bronchodilators. Added oral prednisone Chest physiotherapy with Acapella and Mucinex. Patient is tolerating room air at this time. GERD Change IV Protonix to oral Analgesics as needed Hyponatremia Resolved with IV hydration. Stable. DVT prophylaxis: Lovenox Advanced directive: Full code
[2024-07-20] MEDS: predniSONE 20 MG TAB PO SCH (17:04)
[2024-07-20] MEDS: ALBUTEROL 2.5 MG/3 ML NEB SOL NEB PRN (20:00)
[2024-07-20] MEDS: IPRATROPIUM BROM 0.5MG/2.5ML NEB PRN (20:00)
[2024-07-20] MEDS: GUAIFENESIN 600 MG SA TAB PO SCH (21:10)
[2024-07-21 08:44] VITALS: BP 130/85; TEMP 98.3
[2024-07-21 09:07] VITALS: O2SAT 98
--- NOTE | 2024-07-21 09:17 | P.DS ---
Admission Date: 07/15/24 Discharge Date: 07/21/24 Disposition: ROUTINE DISCHARGE Discharge Condition: FAIR Reason for Admission: SOB Brief History of Present Illness: 54yo M, PMH: asthma; COPD; chronic pancreatitis; and history of throat cancer Status post laryngectomy, tracheostomy, CHF Patient came in with abdominal pain which has been progressively worsening over the last 3 days. Pain is sharp epigastric in location associate with nausea vomiting. Similar to the previous episodes of pancreatitis. Denies any fever or chills. Denies any sick contacts. No aggravating or alleviating factors. Patient states that the pain is not relieved by the home medications and pain medications hence was brought to the ER. Patient is also complains of shortness of breath which has been progressively worsening over the last 2 days. 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 Labwork on admission was unremarkable. CT chest/abd/pelvis on admission noted some tiny nonobstructing right renal calculus, mildly distended rectum with stool, otherwise negative for any other acute findings. Patient had improvement with IV fluids, bowel rest, and protonix. Patients diet was slowly advanced and patient continued to improve. Patient was feeling better, abdominal discomfort improving, nausea/vomiting resolved, and was deemed stable for discharge. Patient was tolerating regular low fat diet on day of discharge. Patient also received brochodilators and oral steroids while hospitalization to treat mild COPD exacerbation. Medications: Prednisone 20 mg twice daily for 4 days Oxycodone as needed for pain continue home meds as previously prescribed. Follow up: PCP 3-5 days GI in near future Please call to schedule / confirm appointments Physical Exam: GEN: Alert, oriented, NAD CV: Regular rate and rhythm, no edema Pulm: Nonlabored respirations on room air, clear bilaterally ABD: soft, nontender, nondistended Integumentary: No rashes Neuro: Normal speech, normal affect Vital Signs/Physical Exam: Temp Pulse Resp BP Pulse Ox 98.3 F 103 H 19 130/85 98 07/21/24 08:00 07/21/24 08:00 07/21/24 08:20 07/21/24 08:00 07/21/24 08:00 Laboratory Data at Discharge: WBC 7.60 thou/uL (4.3-10.9) 07/16/24 04:10 Hgb 14.4 g/dL (13.6-17.9) 07/16/24 04:10 Hct 42.6 % (39.6-49.0) 07/16/24 04:10 Plt Count 249 thou/uL (152-406) 07/16/24 04:10 Sodium 140 mEq/L (136-145) 07/18/24 05:26 Potassium 4.1 mEq/L (3.5-5.1) 07/18/24 05:26 BUN 13 mg/dL (7-18) 07/18/24 05:26 Creatinine 0.84 mg/dL (0.70-1.30) 07/18/24 05:26 Glucose 94 mg/dL (74-106) 07/18/24 05:26 Total Bilirubin 0.3 mg/dL (0.2-1.0) 07/18/24 05:26 AST 67 U/L (15-37) H 07/18/24 05:26 ALT 99 U/L (16-61) H 07/18/24 05:26 Alkaline Phosphatase 133 U/L (45-117) H 07/18/24 05:26 Lipase 65 U/L (13-75) 07/18/24 05:26 Home Medications: Escitalopram [Lexapro*] 20 mg PO DAILY #30 tab 02/16/21 Gabapentin [Neurontin*] 800 mg PO TID 12/11/22 Lipase/Protease/Amylase [Creon Dr 12,000 Units Capsule] 1 tab PO TID 12/11/22 Levothyroxine [Synthroid*] 0.1 mg PO [id number] 05/14/23 Pantoprazole Sodium [Protonix] 40 mg PO DAILY 06/06/23 Lactobacillus Acidophilus 1 each PO DAILY #30 cap 04/08/24 Simethicone [Mylanta Gas Minis] 125 mg PO TID #90 tab.chew 04/08/24 ARIPiprazole [Abilify*] 5 mg PO DAILY 07/18/24 Albuterol Sulfate [Albuterol Sulfate Hfa] 2 aero IH BID 07/18/24 Atorvastatin Calcium [Lipitor] 80 mg PO BEDTIME 07/18/24 Fluticasone Propion/Salmeterol [Fluticasone-Salmeterol 100-50] 1 mcg IH DAILY 07/18/24 Oxycodone HCl/Acetaminophen [Percocet 5/325 Tab*] 1 tab PO Q8H PRN #10 tab 07/21/24 predniSONE [Deltasone] 20 mg PO BID 4 Days #8 tab 07/21/24 New Medications: Oxycodone HCl/Acetaminophen [Percocet 5/325 Tab*] 1 tab PO Q8H PRN #10 tab PRN Reason: Pain Scale 8-10 (Severe) predniSONE [Deltasone] 20 mg PO BID 4 Days #8 tab Physician Discharge Instructions: Physician discharge instructions: Patient presented with worsening abdominal pain, nausea, vomiting secondary to acute on chronic pancreatitis. Labwork on admission was unremarkable. CT chest/abd/pelvis on admission noted some tiny nonobstructing right renal calculus, mildly distended rectum with stool, otherwise negative for any other acute findings. Patient had improvement with IV fluids, bowel rest, and protonix. Patients diet was slowly advanced and patient continued to improve. Patient was feeling better, abdominal discomfort improving, nausea/vomiting resolved, and was deemed stable for discharge. Patient was tolerating regular low fat diet on day of discharge. Patient also received brochodilators and oral steroids while hospitalization to treat mild COPD exacerbation. Medications: Prednisone 20 mg twice daily for 4 days Oxycodone as needed for pain continue home meds as previously prescribed. Follow up: PCP 3-5 days GI in near future Please call to schedule / confirm appointments Diet: Regular Activity: Ad get Followup: Michelle Justice, ZULAY [Primary Care Provider] - 1-2 Weeks Time spent managing pt's care (in minutes): 45
--- NOTE | 2024-07-22 13:05 | EKG ---
Test Date: 2024-07-15 Test Time: 16:35:20 [place] Regenerator: SOPHIA MEASUREMENT RESULTS: Intervals: Rate: 83 GA: 156 QRSD: 76 QT: 394 QTc: 462 [place]: P: 77 GA: 156 QRS: 63 T: 62 INTERPRETIVE STATEMENTS: Normal sinus rhythm Normal ECG Compared to ECG 05/20/2024 19:04:48 Sinus tachycardia no longer present Atrial abnormality no longer present ST (T wave) deviation no longer present Electronically Signed On 07-22-24 12:46:09 CDT by Corey Michele
== END 2024-07-21 10:40 | disposition home or self-care (01) | DRG 190 ==
LOC: ER 16:10 → ERHOLD 23:07 → 2ND 07-16 15:10
PROVIDERS: ADMIT Family Medicine; ATTEND Hospitalist
DX: J44.1 Chronic obstructive pulmonary disease with (acute) exacerbation (principal); K85.90 Acute pancreatitis without necrosis or infection, unspecified; E87.1 Hypo-osmolality and hyponatremia; K21.9 Gastro-esophageal reflux disease without esophagitis; E03.9 Hypothyroidism, unspecified; E86.0 Dehydration; F32.A Depression, unspecified; Z88.1 Allergy status to other antibiotic agents; Z88.8 Allergy status to other drugs, medicaments and biological substances; Z90.49 Acquired absence of other specified parts of digestive tract; Z79.890 Hormone replacement therapy; Z79.899 Other long term (current) drug therapy; Z87.891 Personal history of nicotine dependence
CPT/HCPCS: 36415; 71045; 71250; 74176; 80053; 81001; 83690; 83880; 84484; 85025; 93005; 94640; 94760; 96361; 96374; 96375; 99285; J1644; J1790; J2270; J2405; J2470; J2919; J3535; J7030; J7040; J7512; J7613; J7614; J7644

== ENCOUNTER 2024-07-28 17:10 | Inpatient (IN) | payer OTHER ==
--- NOTE | 2024-07-28 17:53 | RAD REPORT ---
EXAM: Chest Single View HISTORY: 54 years Male shortness of breath COMPARISON: None. FINDINGS: LUNGS/PLEURA: The lungs are clear. No pleural effusions or pneumothorax. No pulmonary edema. CARDIAC/MEDIASTINUM: The cardiac silhouette is within normal limits. UPPER ABDOMEN: No significant abnormality. BONES: No acute abnormality. LINES/TUBES/OTHER: N/A IMPRESSION: No evidence of acute cardiopulmonary disease.
[2024-07-28 18:31] LABS: Absolute Lymphocytes (CBC) 0.6 K/uL (0.7-4.9); Absolute Monocytes 0.6 K/uL (0.1-1.3); Absolute Neutrophil 16.5 K/uL (1.8-8.0); Basophils % 0.1 % (0-1.3); Hematocrit 38.3 % (39.6-49.0); Hemoglobin 13.1 g/dL (13.6-17.9); Lymphocytes % 3.4 % (15.3-44.8); MCH 30.3 pg (27.0-35.0); MCHC 34.3 g/dL (32.0-36.0); MCV 88.4 fL (80-100); MPV 7.8 fL (7.6-11.3); Monocytes % 3.4 % (3.3-12.3); Neutrophils % 93.1 % (41.7-73.7); Nucleated Red Blood Cells % 0.2 % (0-0); Platelets 261 thou/uL (152-406); RBC Red Blood Cell Count 4.33 M/uL (4.33-5.43); Red Cell Distribution Width 17.2 % (12.1-15.2)
[2024-07-28] MEDS ORDERED: ALBUTEROL 2.5 MG/3 ML NEB SOL ONE ×2 (18:31→19:12)
[2024-07-28] MEDS ORDERED: METHYLPREDNISOLONE 125 MG INJ ONE (18:31)
[2024-07-28] MEDS ORDERED: IPRATROPIUM BROM 0.5MG/2.5ML ONE (18:31)
[2024-07-28 18:49] LABS: ALT/SGPT 65 U/L (16-61); Albumin 3.4 g/dL (3.4-5.0); Alkaline Phosphatase 123 U/L (45-117); Anion Gap 10.3 mEq/L (5.0-15.0); BUN Blood Urea Nitrogen 12 mg/dL (7-18); Bicarbonate 28 mEq/L (21-32); Bilirubin Total 0.4 mg/dL (0.2-1.0); Globulin 3.5 g/dL (2.3-3.5); Glomerular Filtration Rate 95 ml/min (=/>90); Glucose Level 115 mg/dL (74-106); Magnesium 1.9 mg/dL (1.6-2.4); NT PRO-BNP 173 pg/mL (<125); Potassium 4.3 mEq/L (3.5-5.1); Protein, Total 6.9 g/dL (6.4-8.2); Sodium Level 137 mEq/L (136-145); Troponin High Sensitivity 5.7 pg/mL (<58.9)
[2024-07-28 18:50] LABS: AST/SGOT < 10 U/L (15-37); Bilirubin Direct < 0.2 mg/dL (0-0.2); Bilirubin Indirect, Calculated 0.2 mg/dL (0.2-0.8)
--- NOTE | 2024-07-28 19:52 | EDPHYS ---
Physician Documentation [facility] Name: Akin Pugh Age: 54 yrs Sex: Male : 1970 Arrival Date: 07/28/2024 Time: 17:10 Bed 13 Private MD: ED Physician Jason Anderson HPI: 07/28 17:48 This 54 yrs old Male presents to ER via EMS with complaints of Breathing Difficulty. ms3 17:48 54-year-old male with past medical history of asthma, congestive heart failure, COPD, ms3 pancreatitis, throat cancer presents to the emergency department via [facility] for shortness of breath began 3 hours prior to arrival after he got to stand and his trach. Patient endorses nausea and vomiting with chest pain and shortness of breath. Patient states his discomfort is 10/10. He denies any alleviating or inciting factors.. Historical: - Allergies: 17:18 Ampicillin; kj2 17:18 Iodinated Contrast Media - IV Dye; kj2 17:18 Iodine; kj2 17:18 Levaquin; kj2 - PMHx: 17:18 Asthma; Congestive heart failure; COPD; Pancreatitis; THROAT CA; kj2 - PSHx: 17:18 Appendectomy; Cholecystectomy; Laryngectomy; tracheostomy; kj2 - Immunization history:: Adult Immunizations unknown. - Infectious Disease History:: Denies. - Social history:: Smoking status: unknown. ROS: 17:48 Constitutional: Negative for fever, and chills. Cardiovascular: Negative for chest ms3 pain, and palpitations. Respiratory: Negative for shortness of breath, cough, wheezing, and pleuritic chest pain, Abdomen/GI: Negative for abdominal pain, nausea, vomiting, diarrhea, and constipation, MS/Extremity: Negative for injury and deformity, Exam: 17:48 Constitutional: This is a well developed, well nourished patient who is awake, alert, ms3 and in no acute distress. Cardiovascular: Regular rate and rhythm with a normal S1 and S2. No gallops, murmurs, or rubs. Normal PMI, no JVD. No pulse deficits. Respiratory: Lungs have equal breath sounds bilaterally, clear to auscultation and percussion. No rales, rhonchi or wheezes noted. No increased work of breathing, no retractions or nasal flaring. Abdomen/GI: Soft, non-tender, with normal bowel sounds. No distension or tympany. No guarding or rebound. No evidence of tenderness throughout. 17:48 Neck: Stoma open without cuff, Vital Signs: 17:15 BP 112 / 64; Pulse 108; Resp 20; Pulse Ox 95% on R/A; Weight 79.38 kg; Height 5 ft. 11 kj2 in. ; Pain 10/10; 18:45 BP 99 / 66; Pulse 82; Resp 20; Pulse Ox 98% ; kj2 19:16 BP 105 / 62; Pulse 77; Resp 25; Pulse Ox 98% ; kj2 17:15 Body Mass Index 24.41 (79.38 kg, 180.34 cm) kj2 17:15 Pain Scale: Adult kj2 MDM: 17:20 Medical Screening Exam initiated ms3 17:48 Differential diagnosis: CHF exacerbation, Chronic Obstructive Pulmonary Disease ms3 Myocardial Infarction. 18:59 Transition of care: After a detail discussion of the patient's case, care is ms3 transferred to Jason Anderson MD. 19:51 Data reviewed: vital signs, nurses notes, lab test result(s), radiologic studies, plain rn films, and as a result, I will admit patient. Consideration of Admission/Observation Patient was admitted/placed on observation. Escalation of care including admission/observation considered. Counseling: I had a detailed discussion with the patient and/or guardian regarding the historical points, exam findings, and any diagnostic results supporting the discharge/admit diagnosis, lab results, radiology results, the need for further work-up and treatment in the hospital. Response to treatment: There is no appreciated change of the patient's symptoms at this time, and as a result, I will admit patient. 07/28 17:25 Order name: Basic Metabolic Panel; Complete Time: 18:56 ms3 07/28 17:25 Order name: CBC with Diff ms3 07/28 17:25 Order name: LFT's; Complete Time: 18:56 ms3 07/28 17:25 Order name: Magnesium; Complete Time: 18:56 ms3 07/28 17:25 Order name: NT PRO-BNP; Complete Time: 18:56 ms3 07/28 17:25 Order name: Troponin HS; Complete Time: 18:56 ms3 07/28 19:52 Order name: Blood Culture Adult (2) rn 07/28 19:52 Order name: CMP rn 07/28 19:52 Order name: Lactate w/ 2H reflex if indic. rn 07/28 19:52 Order name: Protime (+inr) rn 07/28 19:52 Order name: Ptt, Activated rn 07/28 21:01 Order name: CBC Smear Scan EDHI 07/28 21:57 Order name: CBC with Automated Diff EDMS 07/28 21:57 Order name: CBC with Automated Diff EDMS 07/28 21:57 Order name: Comprehensive Metabolic Panel EDMS 07/28 21:57 Order name: Comprehensive Metabolic Panel EDMS 07/28 21:57 Order name: Lactate w/ 2H reflex if indic. EDMS 07/28 21:57 Order name: Lactate w/ 2H reflex if indic. EDMS 07/28 21:57 Order name: Lipid Profile EDMS 07/28 21:57 Order name: Lipid Profile EDMS 07/28 21:57 Order name: Magnesium EDMS 07/28 21:57 Order name: Magnesium EDMS 07/28 21:57 Order name: NT PRO-BNP EDMS 07/28 21:57 Order name: NT PRO-BNP EDMS 07/28 21:57 Order name: Phosphorus EDMS 07/28 21:57 Order name: Phosphorus EDMS 07/28 21:57 Order name: Troponin High Sensitivity EDMS 07/28 21:57 Order name: Troponin High Sensitivity EDMS 07/28 21:57 Order name: Troponin High Sensitivity EDMS 07/28 21:57 Order name: Troponin High Sensitivity EDMS 07/28 21:57 Order name: Sputum Culture EDMS 07/29 07:13 Order name: Ghost Lactate-NO COLLECT Timer EDHI 07/29 07:23 Order name: Lipase EDMS 07/29 07:49 Order name: Glucose, Ancillary Testing EDMS 07/29 08:15 Order name: Lactate Sepsis 2 HR Follow-up EDMS 07/29 12:33 Order name: Glucose, Ancillary Testing EDMS 07/28 17:25 Order name: XRAY Chest (1 view); Complete Time: 18:35 ms3 07/28 19:52 Order name: EKG; Complete Time: 19:53 rn 07/28 21:57 Order name: CONS Physician Consult EDHI 07/28 17:25 Order name: Cardiac monitoring; Complete Time: 19:15 ms3 07/28 17:25 Order name: EKG - Nurse/Tech; Complete Time: 19:15 ms3 07/28 17:25 Order name: IV Saline Lock; Complete Time: 18:44 ms3 07/28 17:25 Order name: Labs collected and sent; Complete Time: 18:44 ms3 07/28 17:25 Order name: O2 Per Protocol; Complete Time: 18:44 ms3 07/28 17:25 Order name: O2 Sat Monitoring; Complete Time: 18:44 ms3 07/28 19:52 Order name: Accucheck; Complete Time: 21:28 rn 07/28 19:52 Order name: IV Saline Lock - Large Bore; Complete Time: 20:19 rn 07/28 19:52 Order name: Vital Signs; Complete Time: 20:37 rn Administered Medications: 18:44 Drug: Albuterol Inhalation 2.5 mg Inhalation every 20 minutes x3 Route: Inhalation; kj2 18:44 Drug: Ipratropium Inhalation Aerosol 0.5 mg Inhalation once Route: Inhalation; kj2 18:44 Drug: MethylPrednisoLONE IVP 125 mg IVP once Route: IVP; Site: left forearm; kj2 20:49 Drug: Zithromax IVPB 500 mg IVPB once over 1 hrs; mix in 250 mL NS Route: IVPB; Infused kj2 Over: 1 hrs; Site: left forearm; 07/29 15:48 Follow up: Response: No adverse reaction; IV Status: Completed infusion jl7 07/28 20:50 Drug: Albuterol Inhalation 2.5 mg Inhalation every 20 minutes x3 Route: Inhalation; kj2 Disposition Summary: 07/28/24 19:52 Hospitalization Ordered Notes: Hospitalization Status: Observation rn Provider: Sara Vilchis rn Condition: Stable rn Problem: an acute exacerbation rn Symptoms: are unchanged rn Bed/Room Type: Standard rn Location: Telemetry/MedSurg (observation)(07/29/24 13:49) bd Room Assignment: 204(07/29/24 14:43) bd Diagnosis - COPD/ Chronic obstructive pulmonary disease with (acute) exacerbation rn Forms: - Medication Reconciliation Form rn - SBAR form rn - Leadership Thank You Letter rn Signatures: Dispatcher [employer] EDSherry Falk Roman, MD MD rn Sims, Marcus, DO DO ms3 Lashawn Powers RN RN vc1 Dulce Jeffers, JEAN RN kj2 Luisito Diaz RN jl7 Corrections: (The following items were deleted from the chart) 17:26 17:26 Chest Single View+RAD.RAD.BRZ ordered. EDMS EDMS 19:53 19:53 BLOOD CULTURE*+BA.LAB.BRZ ordered. EDMS EDMS 19:53 19:53 COMPREHENSIVE METABOLIC PANEL+C.LAB.BRZ ordered. EDMS EDMS 19:53 19:53 LACTATE+C.LAB.BRZ ordered. EDMS EDMS 19:53 19:53 PROTIME (+INR)+COAG.LAB.BRZ ordered. EDMS EDMS 19:53 19:53 PTT, ACTIVATED+COAG.LAB.BRZ ordered. EDMS EDMS 21:05 19:52 Telemetry/MedSurg (observation) rn vc1 21:05 19:52 rn vc1 07/29 13:49 07/28 21:05 [facility] ER HOLD vc1 07/29 13:49 07/28 21:05 ERHOLD- vc1 bd 07/29 14:43 13:49 406 [facility]
--- NOTE | 2024-07-28 19:52 | ER ---
Nurse's Notes [facility] Name: Akin Pugh Age: 54 yrs Sex: Male : 1970 Arrival Date: 07/28/2024 Time: 17:10 Bed 13 Private MD: Diagnosis: COPD/ Chronic obstructive pulmonary disease with (acute) exacerbation Presentation: 07/28 17:15 Chief complaint: EMS states: difficulty breathing, sand in tracheostomy, wheezing. kj2 Coronavirus screen: Client denies travel out of the [place] in the last 14 days. At this time, the client does not indicate any symptoms associated with coronavirus-19. Ebola Screen: No symptoms or risks identified at this time. Initial Sepsis Screen: Does the patient meet any 2 criteria? No. Patient's initial sepsis screen is negative. Does the patient have a suspected source of infection? No. Patient's initial sepsis screen is negative. Risk Assessment: Do you want to hurt yourself or someone else? Patient reports no desire to harm self or others. Onset of symptoms was July 28, 2024. 17:15 Method Of Arrival: EMS: [facility] kj2 17:15 Acuity: PAO 3 kj2 Triage Assessment: 17:19 General: Appears in no apparent distress. Behavior is cooperative. Pain: Complains of kj2 pain in chest Pain currently is 10 out of 10 on a pain scale. Neuro: Level of Consciousness is awake, alert, obeys commands, Oriented to person, place, time, situation. Cardiovascular: Reports chest pain, Patient's skin is warm and dry. Respiratory: Reports shortness of breath at rest Onset: The symptoms/episode began/occurred today, the patient has moderate shortness of breath. GI: No signs and/or symptoms were reported involving the gastrointestinal system. : No signs and/or symptoms were reported regarding the genitourinary system. Historical: - Allergies: 17:18 Ampicillin; kj2 17:18 Iodinated Contrast Media - IV Dye; kj2 17:18 Iodine; kj2 17:18 Levaquin; kj2 - PMHx: 17:18 Asthma; Congestive heart failure; COPD; Pancreatitis; THROAT CA; kj2 - PSHx: 17:18 Appendectomy; Cholecystectomy; Laryngectomy; tracheostomy; kj2 - Immunization history:: Adult Immunizations unknown. - Infectious Disease History:: Denies. - Social history:: Smoking status: unknown. Screenin:21 [facility] ED Fall Risk Assessment (Adult) History of falling in the last 3 months, kj2 including since admission No falls in past 3 months (0 pts) Confusion or Disorientation No (0 pts) Intoxicated or Sedated No (0 pts) Impaired Gait No (0 pts) Mobility Assist Device Used No (0 pt) Altered Elimination No (0 pt) Score/Fall Risk Level 0 - 2 = Low Risk Maintained a safe environment, Hourly rounding (assess needs \T\ fall precautionary measures) done. Abuse screen: Denies threats or abuse. Denies injuries from another. Nutritional screening: No deficits noted. Tuberculosis screening: No symptoms or risk factors identified. Assessment: 17:20 General: see triage assessment. Respiratory: Airway via trache Respiratory effort is kj2 unlabored, Breath sounds with wheezes bilaterally. 18:20 Reassessment: Patient appears in no apparent distress at this time. Patient and/or kj2 family updated on plan of care and expected duration. Pain level reassessed. Patient is alert, oriented x 3, equal unlabored respirations, skin warm/dry/pink. 19:15 Reassessment: Patient appears in no apparent distress at this time. Patient and/or kj2 family updated on plan of care and expected duration. Pain level reassessed. Patient is alert, oriented x 3, equal unlabored respirations, skin warm/dry/pink. Vital Signs: 17:15 BP 112 / 64; Pulse 108; Resp 20; Pulse Ox 95% on R/A; Weight 79.38 kg; Height 5 ft. 11 kj2 in. ; Pain 10/10; 18:45 BP 99 / 66; Pulse 82; Resp 20; Pulse Ox 98% ; kj2 19:16 BP 105 / 62; Pulse 77; Resp 25; Pulse Ox 98% ; kj2 17:15 Body Mass Index 24.41 (79.38 kg, 180.34 cm) kj2 17:15 Pain Scale: Adult kj2 ED Course: 17:14 Patient arrived in ED. kj2 17:18 Triage completed. kj2 17:20 Irvin Falcon DO is Attending Physician. ms3 17:21 Patient has correct armband on for positive identification. Bed in low position. Call kj2 light in reach. Provided Education on: call light. 17:22 Arm band placed on Patient placed in an exam room, on a stretcher. kj2 17:49 XRAY Chest (1 view) In Process Unspecified. EDMS 18:10 Dulce Jeffers RN is Primary Nurse. kj2 18:59 Attending Physician role handed off by Irvin Falcon DO ms3 18:59 Jason Anderson MD is Attending Physician. ms3 19:52 Sara Vilchis MD is Hospitalizing Provider. rn 20:06 EKG done, by technical support technician. af3 20:19 Inserted saline lock: 20 gauge in left forearm, using aseptic technique. Blood af3 collected. Flushed with 10 mL NS. 07/29 08:14 Notified primary nurse of lactate sepsis 2.2. ll1 Administered Medications: 07/28 18:44 Drug: Albuterol Inhalation 2.5 mg Inhalation every 20 minutes x3 Route: Inhalation; kj2 18:44 Drug: Ipratropium Inhalation Aerosol 0.5 mg Inhalation once Route: Inhalation; kj2 18:44 Drug: MethylPrednisoLONE IVP 125 mg IVP once Route: IVP; Site: left forearm; kj2 20:49 Drug: Zithromax IVPB 500 mg IVPB once over 1 hrs; mix in 250 mL NS Route: IVPB; Infused kj2 Over: 1 hrs; Site: left forearm; 07/29 15:48 Follow up: Response: No adverse reaction; IV Status: Completed infusion jl7 07/28 20:50 Drug: Albuterol Inhalation 2.5 mg Inhalation every 20 minutes x3 Route: Inhalation; kj2 Medication: 17:21 VIS not applicable for this client. kj2 Outcome: 19:52 Decision to Hospitalize by Provider. rn 07/29 15:43 Patient left the ED. ll1 Signatures: Dispatcher [employer] EDMS Jason Anderson MD MD rn Leal, Jahala, RN RN jl7 Mariam Brooks RN RN ll1 Irvin Falcon DO DO ms3 Dulce Jeffers RN RN kj2 Rosa Jimenez afArmando
[2024-07-28] MEDS ORDERED: AZITHROMYCIN 500 MG INJ IVPB ONE (20:40)
[2024-07-28] MEDS ORDERED: NA CHLORIDE 0.9% 250 ML ONE (20:41)
[2024-07-28 21:00] LABS: PTT, Activated Partial Thromb 27.7 SECONDS (27.2-37.4); Protime INR 0.96
[2024-07-28 21:01] LABS: Blood Morphology Comment NOT SEEN (NOT SEEN); Platelet Estimate ADEQ; White Blood Cell Scan OK (OK)
[2024-07-28 21:02] LABS: ALT/SGPT 66 U/L (16-61); Albumin 3.6 g/dL (3.4-5.0); Albumin/Globulin Ratio 0.9 (1.1-1.8); Alkaline Phosphatase 133 U/L (45-117); Anion Gap 7.3 mEq/L (5.0-15.0); BUN Blood Urea Nitrogen 13 mg/dL (7-18); Bicarbonate 30 mEq/L (21-32); Bilirubin Total 0.4 mg/dL (0.2-1.0); Globulin 3.8 g/dL (2.3-3.5); Glomerular Filtration Rate 92 ml/min (=/>90); Glucose Level 143 mg/dL (74-106); Potassium 4.3 mEq/L (3.5-5.1); Protein, Total 7.4 g/dL (6.4-8.2); Sodium Level 136 mEq/L (136-145)
[2024-07-28 21:03] LABS: AST/SGOT < 10 U/L (15-37)
[2024-07-28] MEDS ORDERED: Levofloxacin 750mg IV 750 MG/150 ML BAG IV SCH (22:00)
[2024-07-28] MEDS: NA CHLORIDE 0.9% 1,000 ML IV SCH (22:00)
--- NOTE | 2024-07-28 22:07 | P.HP ---
Certification for Inpatient Patient admitted to: Observation With expected LOS: <2 Midnights Patient will require the following post-hospital care: None Practitioner: I am a practitioner with admitting privileges, knowledge of patient current condition, hospital course, and medical plan of care. Services: Services provided to patient in accordance with Admission requirements found in Title 42 Section 412.3 of the Code of Federal Regulations Patient History Date of Service: 07/28/24 Reason for admission: Acute COPD exacerbation History of Present Illness: Patient is a 54-year-old gentleman who is well-known to me from multiple prior admissions as he has a history of stage III throat cancer with recurrent disease which required extensive surgery including a laryngectomy with reconstruction after chemotherapy and radiation. Patient is currently in remission but has had a lot of complications with his pulmonary status, and he has advanced COPD. Patient also had recurrent admissions for pancreatitis. Patient has been having shortness of breath for the last few hours and is having a lot of mucus production from his stoma where he had a tracheostomy. After the trach was removed he has retained his stoma, and he frequently has increased mucus production. Patient is also complaining of some chest pain along with some nausea and vomiting. Will check a lipase level as patient has had recurrent pancreatitis as well. Patient will be admitted to the hospital for observation. Allergies levofloxacin [From Levaquin] Allergy (Severe, Verified 03/30/24 05:25) Itching/Hives/Rash ampicillin Allergy (Verified 03/30/24 05:25) Itching/Hives/Rash iodine Allergy (Verified 03/30/24 05:25) Hives/Rash Home Medications: Escitalopram [Lexapro*] 20 mg PO DAILY #30 tab 02/16/21 Gabapentin [Neurontin*] 800 mg PO TID 12/11/22 Lipase/Protease/Amylase [Chucho Falcon 12,000 Units Capsule] 1 tab PO TID 12/11/22 Levothyroxine [Synthroid*] 0.1 mg PO [id number] 05/14/23 Pantoprazole Sodium [Protonix] 40 mg PO DAILY 06/06/23 Lactobacillus Acidophilus 1 each PO DAILY #30 cap 04/08/24 Simethicone [Mylanta Gas Minis] 125 mg PO TID #90 tab.chew 04/08/24 ARIPiprazole [Abilify*] 5 mg PO DAILY 07/18/24 Albuterol Sulfate [Albuterol Sulfate Hfa] 2 aero IH BID 07/18/24 Atorvastatin Calcium [Lipitor] 80 mg PO BEDTIME 07/18/24 Fluticasone Propion/Salmeterol [Fluticasone-Salmeterol 100-50] 1 mcg IH DAILY 07/18/24 Oxycodone HCl/Acetaminophen [Percocet 5/325 Tab*] 1 tab PO Q8H PRN #10 tab 07/21/24 predniSONE [Deltasone] 20 mg PO BID 4 Days #8 tab 07/21/24 - Past Medical/Surgical History Diabetic: No -: Asthma -: Depression -: Throat cancer status post complete laryngectomy/reconstruction 06/2018 -: Recurrent postop infection -: Chronic pain -: Former tobacco use -: Surgical hypothyroidism -: neuropathy -: Pancreatitis/duodenitis -: Tracheostomy -: Appendectomy -: Complete laryngectomy with reconstruction -: knee surgery bilateral knees -: Thyroidectomy Psychosocial/ Personal History: Patient is . He has 3 children. - Family History Father Medical History: Heart disease, Diabetes Notes: agent orange: immobile Mother Medical History: Cancer Notes: breast ca - Social History Smoking Status: Former smoker Alcohol use: No CD- Drugs: No Caffeine use: Yes Review of Systems 10-point ROS is otherwise unremarkable Physical Examination - Vital Signs Temperature: 98 F Blood Pressure: 150/80 Pulse: 80 Respirations: 18 Pulse Ox (%): 95 - Physical Exam General: Alert, In no apparent distress, Oriented x3 HEENT: Atraumatic, PERRLA, Mucous membr. moist/pink, EOMI, Sclerae nonicteric Neck: Supple, 2+ carotid pulse no bruit, No LAD, Other (Stoma from tracheostomy site), Without JVD or thyroid abnormality Respiratory: Diminished, Expiratory wheezes Cardiovascular: Regular rate/rhythm, Normal S1 S2, No murmurs Gastrointestinal: Normal bowel sounds, Soft and benign, Non-distended, Tenderness Musculoskeletal: No clubbing, No swelling, No tenderness Integumentary: No rashes Neurological: Sensation intact, Cranial nerves 3-12 intact, Abnormal speech, Abnormal strength Lymphatics: No axilla or inguinal lymphadenopathy - Studies Laboratory Data (last 24 hrs) 07/28/24 07/28/24 07/28/24 20:18 20:18 18:15 WBC 17.70 H Hgb 13.1 L Hct 38.3 L Plt Count 261 PT 11.0 INR 0.96 APTT 27.7 Sodium 136 Potassium 4.3 BUN 13 Creatinine 0.98 Glucose 143 H Magnesium Total Bilirubin 0.4 AST < 10 L ALT 66 H Alkaline Phosphatase 133 H 07/28/24 18:15 WBC Hgb Hct Plt Count PT INR APTT Sodium 137 Potassium 4.3 BUN 12 Creatinine 0.95 Glucose 115 H Magnesium 1.9 Total Bilirubin 0.4 AST < 10 L ALT 65 H Alkaline Phosphatase 123 H Assessment & Plan - Problems (Diagnosis) (1) SOB (shortness of breath) Onset Date: 10/14/17 Current Visit: No Status: Acute (2) COPD with acute exacerbation Current Visit: Yes Status: Acute (3) Intractable nausea and vomiting Current Visit: Yes Status: Acute (4) Recurrent acute pancreatitis Current Visit: No Status: Acute (5) History of depression Onset Date: 10/14/17 Current Visit: No Status: Chronic (6) History of laryngeal cancer Current Visit: No Status: Chronic (7) Laryngeal neoplasm Onset Date: 10/14/17 Current Visit: No Status: Chronic (8) Tobacco abuse Onset Date: 10/14/17 Current Visit: No Status: Chronic (9) Tracheostomy dependent Current Visit: No Status: Chronic - Plan Plan: 1. Shortness of breath with acute COPD exacerbation; will continue with nebs, steroids, and antibiotics. Pulmonary consulted. Will continue with respiratory support and will get sputum culture to rule out recurrent Pseudomonas infection. Continue with IV antibiotic therapy as well as mentioned above. Patient is clinically doing much better and patient will be admitted for observation 2. Patient with a history of pancreatitis; abdominal symptoms are stable but patient with intractable nausea and vomiting and check a lipase level. 3. Patient with a history of stage III laryngeal cancer status post laryngectomy and reconstruction surgery; patient with stoma which is stable but will check for Pseudomonas infection 4. History of gastritis; continue with PPI 5. GI DVT prophylaxis Discharge Plan: Home Plan to discharge in: 24 Hours - Advance Directives Does patient have a Living Will: No Does patient have a Durable POA for Healthcare: No - Code Status/Comfort Care Code Status Assessed: Yes Code Status: Full Code Critical Care: No Time Spent Managing PTS Care (In Minutes): 45
[2024-07-28] MEDS ORDERED: NA CHLORIDE 0.9% 1,000 ML ONE (23:40)
[2024-07-28] MEDS ORDERED: ACETAMINOPHEN 500 MG TAB ONE (23:40)
[2024-07-28] MEDS ORDERED: Levofloxacin 750mg IV 750 MG/150 ML BAG IV ONE (23:40)
[2024-07-28] MEDS: ACETAMINOPHEN 500 MG TAB PO PRN (23:49)
[2024-07-29] MEDS: METHYLPREDNISOLONE 125 MG INJ IV SCH
[2024-07-29 01:10] VITALS: BMI 24.4
[2024-07-29] MEDS ORDERED: IPRATROPIUM BROM 0.5MG/2.5ML ONE ×3 (01:27→13:28)
[2024-07-29] MEDS ORDERED: ALBUTEROL 2.5 MG/3 ML NEB SOL ONE ×3 (01:27→13:28)
[2024-07-29] MEDS: ALBUTEROL 2.5 MG/3 ML NEB SOL NEB SCH (01:30)
[2024-07-29] MEDS: IPRATROPIUM BROM 0.5MG/2.5ML NEB SCH (01:30)
[2024-07-29] MEDS ORDERED: METHYLPREDNISOLONE 125 MG INJ ONE ×2 (02:20→05:46)
[2024-07-29] MEDS ORDERED: ACETAMINOPHEN 500 MG TAB ONE (04:11)
[2024-07-29 04:50] LABS: Absolute Lymphocytes (CBC) 0.8 K/uL (0.7-4.9); Absolute Monocytes 0.3 K/uL (0.1-1.3); Absolute Neutrophil 16.9 K/uL (1.8-8.0); Eosinophils % 0.1 % (0-4.4); Hematocrit 39.5 % (39.6-49.0); Hemoglobin 13.4 g/dL (13.6-17.9); Lymphocytes % 4.4 % (15.3-44.8); MCH 30.3 pg (27.0-35.0); MCHC 34.1 g/dL (32.0-36.0); MPV 7.9 fL (7.6-11.3); Monocytes % 1.4 % (3.3-12.3); Platelets 273 thou/uL (152-406); RBC Red Blood Cell Count 4.44 M/uL (4.33-5.43); Red Cell Distribution Width 17.2 % (12.1-15.2)
[2024-07-29 05:09] LABS: Neutrophils % 94.1 % (41.7-73.7)
[2024-07-29 05:28] LABS: ALT/SGPT 61 U/L (16-61); Albumin 3.3 g/dL (3.4-5.0); Albumin/Globulin Ratio 0.9 (1.1-1.8); Alkaline Phosphatase 121 U/L (45-117); Anion Gap 10.5 mEq/L (5.0-15.0); BUN Blood Urea Nitrogen 15 mg/dL (7-18); Bicarbonate 28 mEq/L (21-32); Bilirubin Total 0.5 mg/dL (0.2-1.0); Globulin 3.7 g/dL (2.3-3.5); Glomerular Filtration Rate 100 ml/min (=/>90); Glucose Level 133 mg/dL (74-106); HDL Cholesterol 92 mg/dL (40-60); LDL Cholesterol, Calculated 81 mg/dL (<130); LDL Cholesterol,Calc NonReport 81; NT PRO-BNP 131 pg/mL (<125); Phosphorus 4.4 mg/dL (2.5-4.9); Potassium 4.5 mEq/L (3.5-5.1); Sodium Level 138 mEq/L (136-145)
[2024-07-29 05:30] LABS: AST/SGOT < 10 U/L (15-37)
[2024-07-29] MEDS: NA CHLORIDE 0.9% 500 ML IV ONE (05:30)
[2024-07-29] MEDS ORDERED: NA CHLORIDE 0.9% 500 ML ONE (05:46)
[2024-07-29] MEDS: ENOXAPARIN 40 MG/0.4 ML SQ SCH (09:00)
[2024-07-29] MEDS: CEFEPIME 2 GM in NA CHLORIDE 0.9% 100 ML IV SCH (09:00)
[2024-07-29] MEDS ORDERED: CEFEPIME 2 GM VIAL ONE (09:09)
[2024-07-29] MEDS ORDERED: ENOXAPARIN 40 MG/0.4 ML SQ ONE (09:09)
[2024-07-29] MEDS ORDERED: NA CHLORIDE 0.9% 100 ML ONE (09:10)
--- NOTE | 2024-07-29 12:34 | EKG ---
Test Date: 2024-07-28 Test Time: 19:12:41 Visual Stylist: AF MEASUREMENT RESULTS: Intervals: Rate: 77 MN: 136 QRSD: 84 QT: 390 QTc: 441 [place]: P: 70 MN: 136 QRS: 65 T: 68 INTERPRETIVE STATEMENTS: Normal sinus rhythm Normal ECG Compared to ECG 07/15/2024 16:35:20 No significant changes Electronically Signed On 07-29-24 12:33:36 CDT by Corey Michele
[2024-07-29] MEDS ORDERED: METHYLPREDNISOLONE 40 MG INJ ONE (13:41)
[2024-07-29] MEDS: HYDROCODONE/APAP 5/325 MG TAB PO PRN (13:45)
--- NOTE | 2024-07-29 16:24 | P.PN ---
Subjective Date of Service: 07/29/24 Chief Complaint: Acute COPD exacerbation Patient complaining of increased secretion from his tracheostomy. He was able to ambulate in the ER on room air without shortness of breath or desaturation. His oxygen saturation after ambulation is 95%. Patient is complaining of pain all over. He is tolerating diet. Physical Examination - Vital Signs Temperature: 97.9 F Blood Pressure: 105/62 Pulse: 77 Respirations: 25 Pulse Ox (%): 99 - Studies Laboratory Data (last 24 hrs) 07/28/24 07/28/24 07/28/24 20:18 20:18 18:15 WBC 17.70 H Hgb 13.1 L Hct 38.3 L Plt Count 261 PT 11.0 INR 0.96 APTT 27.7 Sodium 136 Potassium 4.3 BUN 13 Creatinine 0.98 Glucose 143 H Magnesium Total Bilirubin 0.4 AST < 10 L ALT 66 H Alkaline Phosphatase 133 H 07/28/24 18:15 WBC Hgb Hct Plt Count PT INR APTT Sodium 137 Potassium 4.3 BUN 12 Creatinine 0.95 Glucose 115 H Magnesium 1.9 Total Bilirubin 0.4 AST < 10 L ALT 65 H Alkaline Phosphatase 123 H Assessment And Plan - Plan Physical examination General: Alert and oriented x3, NAD, HEENT: Conjunctiva not pale, anicteric sclera Neck: no elevated JVD, tracheostomy stoma Heart: Heart sounds 1 and 2 normal, regular rhythm, normal rate, no pedal edema Lungs: Clear to auscultation bilaterally, adequate breath sounds bilaterally, mild scattered rhonchi. Abdomen: Soft, nondistended, nontender, normal bowel sounds. Extremities: No tenderness, no deformity Skin: Normal skin turgor, no rash, no nodules or ulcers. Neuro: No focal motor deficit. Normal speech. Psychiatry: Normal mood, no agitation. Diagnosis COPD with acute exacerbation Recurrent pancreatitis/chronic pancreatitis History of laryngeal cancer Tobacco abuse History of tracheostomy Plan: COPD with acute exacerbation Associated leukocytosis. Patient was recently discharged from the hospital with oral prednisone. Steroid may be contributing to leukocytosis Continue with nebs, IV steroids and IV cefepime. Chest physiotherapy with flutter device, Mucinex. Monitor CBC to follow leukocytosis. History of laryngeal cancer History of tracheostomy Stable Oxygen by tracheostomy collar as needed. Follow sputum culture. Chronic pancreatitis Gastritis Frequent recurrent exacerbations Patient is tolerating diet. Normal lipase level. Continue PPI. DVT prophylaxis: Lovenox
[2024-07-29] MEDS: GUAIFENESIN 600 MG SA TAB PO SCH (21:28)
[2024-07-29] MEDS: HYDROMORPHONE HCL 0.5 MG/0.5 ML INJ IV ONE (23:44)
[2024-07-30] MEDS ORDERED: SODIUM CHLORIDE 0.9% 10ML INJ IV PRN (02:22)
[2024-07-30] MEDS ORDERED: MAGNES/ALUMIN/SIMET 30ML UCUP PO PRN (02:22)
[2024-07-30] MEDS: PANTOPRAZOLE 40 MG INJ IVP ONE (03:12)
[2024-07-30] MEDS ORDERED: DIPHENHYDRAMINE 50 MG/ML VIAL IV ONE (03:35)
[2024-07-30] MEDS: PANTOPRAZOLE 40MG TABLET PO SCH (05:18)
[2024-07-30 06:49] LABS: Absolute Lymphocytes (CBC) 0.9 K/uL (0.7-4.9); Absolute Monocytes 0.6 K/uL (0.1-1.3); Absolute Neutrophil 32.6 K/uL (1.8-8.0); Basophils % 0.1 % (0-1.3); Hematocrit 41.5 % (39.6-49.0); Hemoglobin 13.8 g/dL (13.6-17.9); Lymphocytes % 2.7 % (15.3-44.8); MCHC 33.2 g/dL (32.0-36.0); MCV 90.4 fL (80-100); Monocytes % 1.8 % (3.3-12.3); Neutrophils % 95.4 % (41.7-73.7); Platelets 294 thou/uL (152-406); RBC Red Blood Cell Count 4.59 M/uL (4.33-5.43); Red Cell Distribution Width 17.2 % (12.1-15.2)
[2024-07-30 07:24] LABS: Anion Gap 9.7 mEq/L (5.0-15.0); Potassium 3.7 mEq/L (3.5-5.1); Troponin High Sensitivity 6.9 pg/mL (<58.9)
[2024-07-30 08:01] LABS: Atypical Lymphocytes 1 %; Band Neutrophils 2 % (0-1); Differential Total Cells Count 100; Lymphocytes 5 % (15-42); Metamyelocytes 1 % (0-0); Monocytes 3 % (0-10); Segmented Neutrophils 88 % (40-80)
[2024-07-30 08:02] LABS: Blood Morphology Comment NOT SEEN (NOT SEEN); Platelet Estimate ADEQ; Smudge Cells FEW
[2024-07-30] MEDS: POTASSIUM 25 MEQ EFFERV TAB PO ONE (08:31)
[2024-07-30] MEDS: DOXYCYCLINE 100 MG CAP PO SCH (09:31)
[2024-07-30] MEDS: MORPHINE 2 MG/ML SYR IV PRN (09:31)
[2024-07-30] MEDS: predniSONE 20 MG TAB PO SCH (09:31)
--- NOTE | 2024-07-30 09:48 | RAD REPORT ---
Procedure: Chest Single View HISTORY: Cough COMPARISON: July 28, 2024 FINDINGS: The lungs appear clear of acute infiltrate.. No significant pleural effusion noted. The heart is normal size. IMPRESSION: No acute abnormality is displayed.
--- NOTE | 2024-07-30 12:25 | P.CNS ---
Date of Consult: 07/30/24 Reason for Consult: COPD exacerbation Chief Complaint: Acute COPD exacerbation History of Present Illness: Patient is 54 years of age history of throat cancer status post tracheostomy has been having problems over the past week worse over the past 3 to 4 days he has advanced COPD recurrent admissions for pancreatitis came in with short of breath productive cough still struggling Allergies levofloxacin [From Levaquin] Allergy (Severe, Verified 03/30/24 05:25) Itching/Hives/Rash ampicillin Allergy (Verified 03/30/24 05:25) Itching/Hives/Rash iodine Allergy (Verified 03/30/24 05:25) Hives/Rash Home Medications: Escitalopram [Lexapro*] 20 mg PO DAILY #30 tab 02/16/21 Gabapentin [Neurontin*] 800 mg PO TID 12/11/22 Levothyroxine [Synthroid*] 0.1 mg PO [id number] 05/14/23 Pantoprazole Sodium [Protonix] 40 mg PO DAILY 06/06/23 ARIPiprazole [Abilify*] 5 mg PO DAILY 07/18/24 Albuterol Sulfate [Albuterol Sulfate Hfa] 2 aero IH BID 07/18/24 Atorvastatin Calcium [Lipitor] 80 mg PO BEDTIME 07/18/24 Fluticasone Propion/Salmeterol [Fluticasone-Salmeterol 100-50] 1 mcg IH DAILY 07/18/24 predniSONE [Deltasone] 20 mg PO BID 4 Days #8 tab 07/21/24 Lipase/Protease/Amylase [Chucho Dr 12,000 Units Capsule] 1 each PO TID 07/29/24 Oxycodone HCl 10 mg PO Q8HP PRN 07/29/24 - Past Medical/Surgical History Diabetic: No -: Asthma -: Depression -: Throat cancer status post complete laryngectomy/reconstruction 06/2018 -: Recurrent postop infection -: Chronic pain -: Former tobacco use -: Surgical hypothyroidism -: neuropathy -: Pancreatitis/duodenitis -: Tracheostomy -: Appendectomy -: Complete laryngectomy with reconstruction -: knee surgery bilateral knees -: Thyroidectomy Psychosocial/ Personal History: Patient is . He has 3 children. - Family History Father Medical History: Heart disease, Diabetes Notes: agent orange: immobile Mother Medical History: Cancer Notes: breast ca - Social History Smoking Status: Unknown if ever smoked Alcohol use: No CD- Drugs: No Caffeine use: Yes Review of Systems General: Weakness Respiratory: Cough, Shortness of Breath Physical Examination Temp Pulse Resp BP Pulse Ox 99 F 94 H 16 136/86 98 07/30/24 08:00 07/30/24 08:00 07/30/24 08:00 07/30/24 08:00 07/30/24 08:00 General: Alert, Oriented x3, Mild distress Respiratory: Clear to auscultation bilaterally, Normal air movement Cardiovascular: No edema, Regular rate/rhythm, Normal S1 S2 Gastrointestinal: Normal bowel sounds, Soft and benign Laboratory Data (last 24 hrs) 07/30/24 07/30/24 06:42 06:42 WBC 34.20 H Hgb 13.8 Hct 41.5 Plt Count 294 Sodium 138 Potassium 3.7 D BUN 22 H Creatinine 0.89 Glucose 118 H - Problems (1) COPD with acute exacerbation Current Visit: Yes Status: Acute Plan: Patient is 54 years of age admitted with acute exacerbation of COPD his chest x- ray is clear await sputum cultures changed to p.o. levofloxacin p.o. prednisone white count is also significantly elevated may be side effect of the steroid ox ygenation blood pressure satisfactory apparently there is a history of recurrent pancreatitis lipase level is normal will check procalcitonin level flutter valve labs medications all reviewed sputum cultures are pending add doxycycline for MRSA coverage nasal cultures
--- NOTE | 2024-07-30 13:17 | P.PN ---
Subjective Date of Service: 07/30/24 Chief Complaint: Acute COPD exacerbation Patient complaining of intermittent cough and epigastric pain. He has been ambulating in the hallway. Leukocytosis trended up to 35,000 He is tolerating diet. Physical Examination - Vital Signs Temperature: 98.5 F Blood Pressure: 152/83 Pulse: 106 Respirations: 16 Pulse Ox (%): 100 - Studies Laboratory Data (last 24 hrs) 07/30/24 07/30/24 06:42 06:42 WBC 34.20 H Hgb 13.8 Hct 41.5 Plt Count 294 Sodium 138 Potassium 3.7 D BUN 22 H Creatinine 0.89 Glucose 118 H Assessment And Plan - Plan Physical examination General: Alert and oriented x3, NAD, HEENT: Conjunctiva not pale, anicteric sclera Neck: no elevated JVD, tracheostomy stoma Heart: Heart sounds 1 and 2 normal, regular rhythm, normal rate, no pedal edema Lungs: Clear to auscultation bilaterally, adequate breath sounds bilaterally, mild scattered rhonchi. Abdomen: Soft, nondistended, nontender, normal bowel sounds. Extremities: No tenderness, no deformity Skin: Normal skin turgor, no rash, no nodules or ulcers. Neuro: No focal motor deficit. Normal speech. Psychiatry: Normal mood, no agitation. Diagnosis COPD with acute exacerbation Recurrent pancreatitis/chronic pancreatitis History of laryngeal cancer Tobacco abuse History of tracheostomy Plan: COPD with acute exacerbation Tracheitis Leukocytosis is worse from yesterday. Possible steroid-induced leukocytosis contributing to the overall WBC count. Continue with nebs, IV steroids and IV cefepime. Pulmonary Dr. Mejia input appreciated. Doxycycline added. Awaiting sputum culture. Chest physiotherapy with flutter device, Mucinex. Monitor CBC to follow leukocytosis. History of laryngeal cancer History of tracheostomy Stable Oxygen by tracheostomy collar as needed. Follow sputum culture. Chronic pancreatitis Gastritis Frequent recurrent exacerbations. Patient was complaining of pain. Lipase level checked is normal Patient is tolerating diet. Diet as tolerated. Continue PPI. DVT prophylaxis: Lovenox
[2024-07-31 07:01] LABS: Absolute Monocytes 1.3 K/uL (0.1-1.3); Absolute Neutrophil 24.3 K/uL (1.8-8.0); Basophils % 0.1 % (0-1.3); Hematocrit 40.9 % (39.6-49.0); Hemoglobin 13.9 g/dL (13.6-17.9); Lymphocytes % 3.7 % (15.3-44.8); MCH 30.6 pg (27.0-35.0); MCHC 33.9 g/dL (32.0-36.0); MCV 90.3 fL (80-100); MPV 7.9 fL (7.6-11.3); Monocytes % 4.8 % (3.3-12.3); Neutrophils % 91.4 % (41.7-73.7); Platelets 262 thou/uL (152-406); RBC Red Blood Cell Count 4.53 M/uL (4.33-5.43); Red Cell Distribution Width 17.2 % (12.1-15.2)
[2024-07-31 07:32] LABS: Anion Gap 7.5 mEq/L (5.0-15.0); Potassium 4.5 mEq/L (3.5-5.1); Troponin High Sensitivity 5.6 pg/mL (<58.9)
--- NOTE | 2024-07-31 08:05 | RAD REPORT ---
EXAM: Chest Single View HISTORY: 54 years Male COPD COMPARISON: 07/30/2024 FINDINGS: LUNGS/PLEURA: The lungs are clear. No pleural effusions or pneumothorax. No pulmonary edema. CARDIAC/MEDIASTINUM: The cardiac silhouette is within normal limits. UPPER ABDOMEN: No significant abnormality. BONES: No acute abnormality. LINES/TUBES/OTHER: N/A IMPRESSION: No evidence of acute cardiopulmonary disease. No significant change from prior.
[2024-07-31] MEDS: PANTOPRAZOLE 40MG TABLET PO SCH ×2 (08:57→09:00)
[2024-07-31] MEDS: SALMETEROL IH SCH (09:00)
[2024-07-31] MEDS: BLST W D IH SCH (09:00)
[2024-07-31] MEDS: [UNRECOGNIZED DRUG - OTHER] IH SCH (09:00)
[2024-07-31] MEDS: FLUTICASONE PROPION IH SCH (09:00)
[2024-07-31] MEDS: GABAPENTIN 400 MG CAP PO SCH (10:38)
[2024-07-31] MEDS: ARIPiprazole 5 MG TAB PO SCH (10:38)
[2024-07-31] MEDS: ESCITALOPRAM 20 MG TAB PO SCH (10:38)
[2024-07-31 10:56] LABS: Band Neutrophils 3 % (0-1); Differential Total Cells Count 100; Lymphocytes 3 % (15-42); Metamyelocytes 2 % (0-0); Monocytes 5 % (0-10); Myelocytes 2 % (0-0); Platelet Estimate ADEQ; Segmented Neutrophils 85 % (40-80)
[2024-07-31 10:57] LABS: Blood Morphology Comment NOT SEEN (NOT SEEN)
[2024-07-31] MEDS: LIPASE/PROTEASE/AMYLASE CAP PO SCH (12:43)
--- NOTE | 2024-07-31 14:43 | P.PN ---
Subjective Date of Service: 07/31/24 Chief Complaint: Acute COPD exacerbation Patient denies any complaint except intermittent cough. He has been ambulating. Leukocytosis has started trending down. He is tolerating diet. Physical Examination - Vital Signs Temperature: 97.5 F Blood Pressure: 113/75 Pulse: 72 Respirations: 16 Pulse Ox (%): 98 Assessment And Plan - Plan Physical examination General: Alert and oriented x3, NAD, Neck: no elevated JVD, tracheostomy stoma Heart: Heart sounds 1 and 2 normal, regular rhythm, normal rate, no pedal edema Lungs: Clear to auscultation bilaterally, adequate breath sounds bilaterally. Abdomen: Soft, nondistended, nontender, normal bowel sounds. Extremities: No tenderness, no deformity Skin: Normal skin turgor, no rash, no nodules or ulcers. Neuro: No focal motor deficit. Normal speech. Psychiatry: Normal mood, no agitation. Diagnosis COPD with acute exacerbation Recurrent pancreatitis/chronic pancreatitis History of laryngeal cancer Tobacco abuse History of tracheostomy Plan: COPD with acute exacerbation Tracheitis Leukocytosis has started trending down. Possible steroid-induced leukocytosis contributing to the overall WBC count. Continue with nebs, IV cefepime and oral doxycycline. IV steroids transitioned to oral prednisone Pulmonary Dr. Mejia is following. Awaiting sputum culture. Chest physiotherapy with flutter device, Mucinex. Monitor CBC to follow leukocytosis. History of laryngeal cancer History of tracheostomy Stable Follow sputum culture. Chronic pancreatitis Gastritis Frequent recurrent exacerbations. Patient was complaining of pain. Lipase level checked is normal Patient is tolerating diet. Diet as tolerated. Continue PPI. Continue other home medications. DVT prophylaxis: Patient is ambulatory.
[2024-07-31] MEDS: ATORVASTATIN 80 MG TAB PO SCH (21:42)
[2024-08-01] MEDS: LEVOTHYROXINE SOD 0.1 MG TAB PO SCH (05:27)
[2024-08-01 07:23] LABS: Absolute Lymphocytes (CBC) 0.8 K/uL (0.7-4.9); Absolute Monocytes 0.9 K/uL (0.1-1.3); Absolute Neutrophil 17.5 K/uL (1.8-8.0); Basophils % 0.1 % (0-1.3); Eosinophils % 0.1 % (0-4.4); Hematocrit 40.9 % (39.6-49.0); Hemoglobin 13.7 g/dL (13.6-17.9); Lymphocytes % 4.4 % (15.3-44.8); MCH 30.2 pg (27.0-35.0); MCHC 33.5 g/dL (32.0-36.0); MCV 90.3 fL (80-100); MPV 7.9 fL (7.6-11.3); Monocytes % 4.7 % (3.3-12.3); Neutrophils % 90.7 % (41.7-73.7); Nucleated Red Blood Cells % 0.1 % (0-0); Platelets 251 thou/uL (152-406); RBC Red Blood Cell Count 4.53 M/uL (4.33-5.43); Red Cell Distribution Width 17.1 % (12.1-15.2)
[2024-08-01 07:31] LABS: Anion Gap 9.3 mEq/L (5.0-15.0); Potassium 4.3 mEq/L (3.5-5.1)
--- NOTE | 2024-08-01 13:53 | P.PN ---
Subjective Date of Service: 08/01/24 Chief Complaint: Acute COPD exacerbation Patient denies any new complaint. Leukocytosis continues to trend down He is tolerating diet. Physical Examination - Vital Signs Temperature: 98.5 F Blood Pressure: 150/85 Pulse: 93 Respirations: 17 Pulse Ox (%): 94 Assessment And Plan - Plan Physical examination General: Alert and oriented x3, NAD, Neck: Tracheostomy stoma Heart: Heart sounds 1 and 2 normal, regular rhythm, normal rate, no pedal edema Lungs: Clear to auscultation bilaterally, adequate breath sounds bilaterally. Abdomen: Soft, nondistended, nontender, normal bowel sounds. Extremities: No tenderness, no deformity Skin: Normal skin turgor, no rash. Neuro: No focal motor deficit. Normal speech. Psychiatry: Normal mood, no agitation. Diagnosis COPD with acute exacerbation Recurrent pancreatitis/chronic pancreatitis History of laryngeal cancer Tobacco abuse History of tracheostomy Plan: COPD with acute exacerbation Tracheitis WBC continues to trend down. Possible steroid-induced leukocytosis contributing to leukocytosis. Continue with nebs, IV cefepime and oral doxycycline. Status post IV Solu-Medrol. Continue oral prednisone Pulmonary Dr. Mejia is following. Awaiting sputum culture results Chest physiotherapy with flutter device if possible, Mucinex. Monitor CBC to follow leukocytosis. History of laryngeal cancer History of tracheostomy Stable Follow sputum culture. Chronic pancreatitis Gastritis Frequent recurrent exacerbations. Patient is tolerating diet Lipase level checked is normal Diet as tolerated. Continue PPI. Continue other home medications. DVT prophylaxis: Patient is ambulatory.
[2024-08-01] MEDS: ONDANSETRON 4 MG/2 ML VIAL IV PRN (21:16)
[2024-08-02 06:46] LABS: Absolute Lymphocytes (CBC) 0.6 K/uL (0.7-4.9); Absolute Monocytes 0.9 K/uL (0.1-1.3); Absolute Neutrophil 16.6 K/uL (1.8-8.0); Basophils % 0.1 % (0-1.3); Eosinophils % 0.1 % (0-4.4); Hematocrit 42.5 % (39.6-49.0); Hemoglobin 14.2 g/dL (13.6-17.9); Lymphocytes % 3.1 % (15.3-44.8); MCHC 33.3 g/dL (32.0-36.0); MCV 89.9 fL (80-100); MPV 7.7 fL (7.6-11.3); Monocytes % 4.9 % (3.3-12.3); Neutrophils % 91.8 % (41.7-73.7); Platelets 271 thou/uL (152-406); RBC Red Blood Cell Count 4.73 M/uL (4.33-5.43); Red Cell Distribution Width 17.4 % (12.1-15.2)
[2024-08-02 06:57] LABS: Anion Gap 7.2 mEq/L (5.0-15.0); Potassium 4.2 mEq/L (3.5-5.1)
--- NOTE | 2024-08-02 12:32 | P.PN ---
Subjective Date of Service: 08/02/24 Chief Complaint: Acute COPD exacerbation Patient reports constipation Leukocytosis continues to trend down. Patient has been ambulatory without oxygen. He is tolerating diet. Physical Examination - Vital Signs Temperature: 98.1 F Blood Pressure: 142/76 Pulse: 97 Respirations: 22 Pulse Ox (%): 99 Assessment And Plan - Plan Physical examination General: Alert and oriented x3, NAD, Neck: Tracheostomy stoma Heart: Heart sounds 1 and 2 normal, regular rhythm, normal rate, no pedal edema Lungs: Clear to auscultation bilaterally, adequate breath sounds bilaterally. Abdomen: Soft, nondistended, nontender, normal bowel sounds. Extremities: No tenderness, no deformity Skin: Normal skin turgor, no rash. Neuro: No focal motor deficit. Normal speech. Psychiatry: Normal mood, no agitation. Diagnosis COPD with acute exacerbation Recurrent pancreatitis/chronic pancreatitis History of laryngeal cancer Tobacco abuse History of tracheostomy Plan: COPD with acute exacerbation Tracheitis WBC significantly improved to 18,000 Possible steroid-induced leukocytosis contributing to leukocytosis. Continue with nebs, IV cefepime and oral doxycycline. Status post IV Solu-Medrol. Continue oral prednisone Pulmonary Dr. Mejia is following. Sputum culture is growing coagulase positive staph Continue current antibiotics as we wait for sputum culture antibiotic sensitivity Chest physiotherapy with flutter device if possible, Mucinex. Monitor CBC to follow leukocytosis. History of laryngeal cancer History of tracheostomy Stable Chronic pancreatitis Gastritis Functional constipation Frequent recurrent exacerbations. Patient is tolerating diet Lipase level checked is normal Diet as tolerated. Continue PPI. Continue other home medications. Ordered laxative today Start stool stockings. DVT prophylaxis: Patient is ambulatory.
[2024-08-02] MEDS ORDERED: MAGNESIUM CITRATE 300 ML BOT PO SCH (13:00)
[2024-08-03 07:47] LABS: Absolute Eosinophils 0.1 K/uL (0-0.5); Absolute Lymphocytes (CBC) 1.1 K/uL (0.7-4.9); Absolute Monocytes 1.4 K/uL (0.1-1.3); Absolute Neutrophil 23.2 K/uL (1.8-8.0); Basophils % 0.1 % (0-1.3); Eosinophils % 0.4 % (0-4.4); Hematocrit 45.2 % (39.6-49.0); Hemoglobin 14.9 g/dL (13.6-17.9); Lymphocytes % 4.1 % (15.3-44.8); MCH 29.8 pg (27.0-35.0); MCV 90.2 fL (80-100); MPV 7.7 fL (7.6-11.3); Monocytes % 5.6 % (3.3-12.3); Neutrophils % 89.8 % (41.7-73.7); Platelets 271 thou/uL (152-406); RBC Red Blood Cell Count 5.01 M/uL (4.33-5.43); Red Cell Distribution Width 17.5 % (12.1-15.2)
[2024-08-03 07:59] LABS: Anion Gap 6.7 mEq/L (5.0-15.0); Potassium 4.7 mEq/L (3.5-5.1)
[2024-08-03] MEDS: POLYETHYL GLY 3350 17 GM/DOSE PO SCH (09:45)
[2024-08-03 09:47] LABS: Absolute Basophils 0.1 K/uL (0-0.5); Basophils % 0.3 % (0-1.3); Eosinophils % 0.1 % (0-4.4); Hematocrit 42.9 % (39.6-49.0); Hemoglobin 14.2 g/dL (13.6-17.9); Lymphocytes % 4.3 % (15.3-44.8); MCHC 33.1 g/dL (32.0-36.0); MCV 90.7 fL (80-100); MPV 8.2 fL (7.6-11.3); Monocytes % 4.4 % (3.3-12.3); Neutrophils % 90.9 % (41.7-73.7); Platelets 242 thou/uL (152-406); RBC Red Blood Cell Count 4.73 M/uL (4.33-5.43); Red Cell Distribution Width 17.3 % (12.1-15.2)
[2024-08-03 10:58] LABS: Differential Total Cells Count 100; Slides for Pathologist Review DONE
[2024-08-03 10:59] LABS: Atypical Lymphocytes 1 %; Band Neutrophils 2 % (0-1); Lymphocytes 5 % (15-42); Metamyelocytes 2 % (0-0); Monocytes 3 % (0-10); Myelocytes 1 % (0-0); Segmented Neutrophils 86 % (40-80)
[2024-08-03 11:00] LABS: Blood Morphology Comment NOT SEEN (NOT SEEN); Platelet Estimate ADEQ
--- NOTE | 2024-08-03 11:56 | P.PN ---
Subjective Date of Service: 08/03/24 Chief Complaint: Acute COPD exacerbation Patient denies any new complain. Leukocytosis trended down significantly from yesterday Patient has been ambulatory without oxygen. He is tolerating diet. Physical Examination - Vital Signs Temperature: 97.8 F Blood Pressure: 133/76 Pulse: 78 Respirations: 18 Pulse Ox (%): 99 - Studies Microbiology Data (last 24 hrs): 07/28/24 20:00 Blood - Blood Aerobic Blood Culture - Final No growth in 5 days. 07/28/24 20:00 Blood - Blood Anaerobic Blood Culture - Final No growth in 5 days. 07/28/24 20:18 Blood - Blood Aerobic Blood Culture - Final No growth in 5 days. 07/28/24 20:18 Blood - Blood Anaerobic Blood Culture - Final No growth in 5 days. Assessment And Plan - Plan Physical examination General: Alert and oriented x3, NAD, Neck: Tracheostomy stoma Heart: Heart sounds 1 and 2 normal, regular rhythm, normal rate, no pedal edema Lungs: Clear to auscultation bilaterally, adequate breath sounds bilaterally. Abdomen: Soft, nondistended, nontender, normal bowel sounds. Extremities: No tenderness, no deformity Skin: Normal skin turgor, no rash. Neuro: No focal motor deficit. Normal speech. Psychiatry: Normal mood, no agitation. Diagnosis COPD with acute exacerbation Recurrent pancreatitis/chronic pancreatitis History of laryngeal cancer Tobacco abuse History of tracheostomy Plan: COPD with acute exacerbation Tracheitis WBC trended up from yesterday to 25,000. Etiology is unclear Steroids likely contributing to the leukocytosis. Sputum culture growing coagulase positive staph. Patient is on oral doxycycline, will change doxycycline to Bactrim response. Follow sputum culture biotic sensitivity. Continue IV cefepime for suspected Pseudomonas tracheitis. Patient is allergic to oral Levaquin which limits outpatient option for Pseudomonas infection. Status post IV Solu-Medrol. Continue oral prednisone Pulmonary Dr. Mejia is following. Chest physiotherapy with flutter device if possible, Mucinex. Monitor CBC to follow leukocytosis. History of laryngeal cancer History of tracheostomy Stable Chronic pancreatitis Gastritis Functional constipation Frequent recurrent exacerbations. Patient is tolerating diet Normal lipase level Diet as tolerated. Continue PPI. Continue other home medications. Stool softeners for constipation prophylaxis. DVT prophylaxis: Patient is ambulatory.
--- NOTE | 2024-08-03 12:32 | RAD REPORT ---
EXAMINATION: ONE VIEW CHEST XR CLINICAL INDICATION: Follow up tracheitis/pneumonia TECHNIQUE: Frontal chest projection is submitted. Examination is limited by patient positioning and t echnique. COMPARISON: 07/31/2024 FINDINGS: The lungs are well inflated and clear. The heart is upper limit of normal in size. No displaced fract ures identified. IMPRESSION: No acute intrathoracic abnormalities.
[2024-08-03] MEDS: NICOTINE 14 MG/PAT TD SCH (20:20)
[2024-08-03] MEDS: SMZ./TMP. 800/160 MG TABLET PO SCH (20:26)
[2024-08-04 06:24] LABS: Absolute Monocytes 1.4 K/uL (0.1-1.3); Absolute Neutrophil 18.7 K/uL (1.8-8.0); Basophils % 0.1 % (0-1.3); Eosinophils % 0.1 % (0-4.4); Hematocrit 38.5 % (39.6-49.0); Hemoglobin 12.8 g/dL (13.6-17.9); Lymphocytes % 4.7 % (15.3-44.8); MCH 30.1 pg (27.0-35.0); MCHC 33.3 g/dL (32.0-36.0); MCV 90.4 fL (80-100); MPV 8.1 fL (7.6-11.3); Monocytes % 6.4 % (3.3-12.3); Neutrophils % 88.7 % (41.7-73.7); Platelets 226 thou/uL (152-406); RBC Red Blood Cell Count 4.25 M/uL (4.33-5.43); Red Cell Distribution Width 17.4 % (12.1-15.2)
[2024-08-04 06:32] LABS: Anion Gap 7.7 mEq/L (5.0-15.0); Potassium 4.7 mEq/L (3.5-5.1)
--- NOTE | 2024-08-04 08:09 | P.PN ---
Date of Service: 08/04/24 Subjective: feels breathing is slightly easier producing less secretions nursing staff report patient is ambulating around hospital and going outside to smoke at times denies any new / worsening problems afebrile Physical Exam: GEN: Alert, oriented, NAD CV: Regular rate and rhythm, no edema Pulm: Nonlabored respirations on room air, +wheeze Neuro: Normal speech, normal affect Problem List: Acute on chronic COPD exacerbation Tracheitis Gastritis / GERD Constipation Hx recurrent pancreatitis Depression Hypothyroidism Hx laryngeal cancer s/p laryngectomy with reconstruction and tracheostomy Acute on chronic COPD exacerbation Tracheitis on admission, presents with worsening SOB associated with increased secretions from tracheal stoma CXR on admission negative Pulm consulted on admission IV cefepime (07/29-) 07/30 - WBC trended up to 35k Steroids likely contributing to the leukocytosis. 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 No outpatient option for Pseudomonas infection Doxycycline switched to bactrim Repeat CXR negative 08/04 - Feeling better overall. Breathing improving and producing less secretion. Leukocytosis improving still quite wheezy on exam, likely from secretions - sounds better after good cough, but not able to completely clear out Gastritis / GERD Constipation Hx recurrent pancreatitis Lipase normal on admission Tolerating diet without issues PPI, daily laxative Depression Hypothyroidism Hx laryngeal cancer s/p laryngectomy with reconstruction and tracheostomy confirm home meds continue supportive care VTE: Lovenox Code: Full Dispo: Home, ~1 day pending further improvement of WBC Time Spent Managing Pts Care (In Minutes): 55
[2024-08-05 06:38] LABS: Absolute Basophils 0.1 K/uL (0-0.5); Absolute Monocytes 1.1 K/uL (0.1-1.3); Absolute Neutrophil 21.6 K/uL (1.8-8.0); Basophils % 0.2 % (0-1.3); Hematocrit 42.4 % (39.6-49.0); Hemoglobin 14.1 g/dL (13.6-17.9); Lymphocytes % 4.3 % (15.3-44.8); MCHC 33.2 g/dL (32.0-36.0); MCV 90.3 fL (80-100); MPV 8.1 fL (7.6-11.3); Monocytes % 4.8 % (3.3-12.3); Neutrophils % 90.7 % (41.7-73.7); Nucleated Red Blood Cells % 0.1 % (0-0); Platelets 239 thou/uL (152-406)
[2024-08-05 06:48] LABS: Anion Gap 8.2 mEq/L (5.0-15.0); Magnesium 2.5 mg/dL (1.6-2.4); Potassium 4.2 mEq/L (3.5-5.1)
[2024-08-05] MEDS: predniSONE 20 MG TAB PO SCH (08:19)
[2024-08-05] MEDS: predniSONE 10 MG TAB PO SCH (09:00)
[2024-08-05 10:11] LABS: Band Neutrophils 4 % (0-1); Differential Total Cells Count 100; Lymphocytes 8 % (15-42); Metamyelocytes 3 % (0-0); Monocytes 3 % (0-10); Segmented Neutrophils 78 % (40-80)
[2024-08-05 10:12] LABS: Blood Morphology Comment NOT SEEN (NOT SEEN); Myelocytes 4 % (0-0); Platelet Estimate ADEQ
--- NOTE | 2024-08-05 12:03 | P.PN ---
Date of Service: 08/05/24 Subjective: No events overnight clinically improving daily Denies any new / worsening problems afebrile Physical Exam: GEN: Alert, oriented, NAD CV: Regular rate and rhythm, no edema Pulm: Nonlabored respirations on room air, +wheeze Abd: soft, moderate TTP in upper abdomen / epigastrium Problem List: Acute on chronic COPD exacerbation Tracheitis Gastritis / GERD Constipation Hx recurrent pancreatitis Depression Hypothyroidism Hx laryngeal cancer s/p laryngectomy with reconstruction and tracheostomy Acute on chronic COPD exacerbation Tracheitis on admission, presents with worsening SOB associated with increased secretions from tracheal stoma CXR on admission negative Pulm consulted on admission IV cefepime (07/29-) 07/30 - WBC trended up to 35k Steroids likely contributing to the leukocytosis. 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 No outpatient option for Pseudomonas infection Doxycycline switched to bactrim Repeat CXR negative 08/04 - Feeling better overall. Breathing improving and producing less secretion. Leukocytosis improving still quite wheezy on exam, likely from secretions - sounds better after good cough, but not able to completely clear out 08/05 - Leukocytosis fluctuating. slightly worse today. Likely reactive. WBC has been relatively stable between 20-25k Has been on steroids for several days, +repeat pro-julieta negative decrease steroids to 10 mg daily having ongoing abd pain - described as different compared to his typical pancreatitis pain. different than pains he would expect from coughing check CT Gastritis / GERD Constipation Hx recurrent pancreatitis Lipase normal on admission Tolerating diet without issues PPI, daily laxative Depression Hypothyroidism Hx laryngeal cancer s/p laryngectomy with reconstruction and tracheostomy confirm home meds continue supportive care VTE: Lovenox Code: Full Dispo: Home Time Spent Managing Pts Care (In Minutes): 55
[2024-08-05] MEDS: HYDROCODONE/APAP 5/325 MG TAB PO PRN (12:10)
[2024-08-05] MEDS: OXYCODONE HCL 5 MG TAB PO PRN (17:26)
[2024-08-06 04:48] VITALS: BP 121/79; TEMP 98.9
[2024-08-06 06:31] LABS: Absolute Eosinophils 0.1 K/uL (0-0.5); Absolute Lymphocytes (CBC) 1.3 K/uL (0.7-4.9); Absolute Monocytes 1.2 K/uL (0.1-1.3); Absolute Neutrophil 16.1 K/uL (1.8-8.0); Basophils % 0.2 % (0-1.3); Eosinophils % 0.3 % (0-4.4); Hematocrit 41.2 % (39.6-49.0); Hemoglobin 14.1 g/dL (13.6-17.9); MCH 30.6 pg (27.0-35.0); MCHC 34.2 g/dL (32.0-36.0); MCV 89.4 fL (80-100); MPV 7.9 fL (7.6-11.3); Monocytes % 6.5 % (3.3-12.3); Nucleated Red Blood Cells % 0.1 % (0-0); Platelets 247 thou/uL (152-406); RBC Red Blood Cell Count 4.61 M/uL (4.33-5.43); Red Cell Distribution Width 17.7 % (12.1-15.2)
[2024-08-06 06:53] LABS: Albumin 3.2 g/dL (3.4-5.0); Anion Gap 9.1 mEq/L (5.0-15.0); Bilirubin Total 0.5 mg/dL (0.2-1.0); Globulin 3.2 g/dL (2.3-3.5); Magnesium 2.3 mg/dL (1.6-2.4); Potassium 4.1 mEq/L (3.5-5.1); Protein, Total 6.4 g/dL (6.4-8.2)
--- NOTE | 2024-08-06 08:04 | RAD REPORT ---
EXAM: CT CHEST, ABDOMEN AND PELVIS WITHOUT CONTRAST CLINICAL INDICATION: upper abdominal pain, persistent cough/phlegm TECHNIQUE: CT chest, abdomen and pelvis was performed without contrast, as per department protocol. A xial, sagittal and coronal reconstructions were obtained. One or more of the following dose reduction techniques were used: Automated exposure control, adjustment of the mA and/or kV according to patient size, and/or iterative reconstruction. Unless otherwise specified, incidental findings do not require dedicated imaging follow-up. Examination is limited by the lack of intravenous contrast material. COMPARISON: 07/15/2024 FINDINGS: Postsurgical changes are seen tracheostomy. Mild thickening of the distal esophagus. LUNGS: No worrisome pulmonary nodule or infiltrate. PLEURA: No pleural effusion. No pneumothorax. MEDIASTINUM AND LYMPH NODES: No mediastinal mass or fluid collection. Normal size mediastinal, hilar, and axillary lymph nodes. Coronary calcification. OSSEOUS STRUCTURES AND CHEST WALL: Intact. LIVER: Normal in size and contour. No focal lesion or biliary dilatation. Cholecystectomy clips. PANCREAS: No mass, ductal dilation, or selene-pancreatic fluid. SPLEEN: Normal size. No focal lesion. ADRENALS: Normal; no mass. KIDNEYS: Tiny punctate calculus right kidney. No significant hydronephrosis of either kidney. URINARY BLADDER: Normal contour. GASTROINTESTINAL TRACT: No bowel obstruction, free air, significant free fluid or abscess. Moderate stool is retained in the colon. APPENDIX: Appendix not visualized, but no inflammatory changes in region of appendix. LYMPH NODES: No lymphadenopathy. MUSCULOSKELETAL: No acute or suspicious osseous abnormality. OTHER: Aortoiliac atherosclerosis. IMPRESSION: Moderate stool retained throughout the colon. Punctate right renal calculus without hydronephrosis.
--- NOTE | 2024-08-06 09:33 | P.DS ---
Admission Date: 07/30/24 Discharge Date: 08/06/24 Reason for Admission: Acute COPD exacerbation Consultations: Pulmonology - Dr. Mejia Brief History of Present Illness: 54 yo M, PMH: stage III throat cancer with recurrent disease which required extensive surgery including a laryngectomy with reconstruction after chemotherapy and radiation. Patient is currently in remission but has had a lot of complications with his pulmonary status, and he has advanced COPD. Patient also had recurrent admissions for pancreatitis. Patient has been having shortness of breath for the last few hours and is having a lot of mucus production from his stoma where he had a tracheostomy. After the trach was removed he has retained his stoma, and he frequently has increased mucus production. Patient is also complaining of some chest pain along with some nausea and vomiting. Will check a lipase level as patient has had recurrent pancreatitis as well. Patient will be admitted to the hospital for observation. 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 Chest xray on admission was negative for any acute findings. Patient was started on IV steroids and IV antibiotics and had some improvement. Patient's leukocytosis trended up to 35k from 17.7 within the first [address] Mejia, pulm was consulted and recommended adding doxycyline for extended coverage. Sputum culture grew Staph Aureus. Doxycycline was switched to Bactrim given the rise in WBC. Leukocytosis continued to fluctuate throughout hospitalization. IV steroids were deescalated to oral prednisone and patient continued to improve clinically. Peripheral blood smear noted reactive appearance to leukocytosis. Procalcitonin levels were checked twice and normal/negative. Given his negative imaging and inflammatory markers, suspect leukocytosis favoring a more reactive etiology. He has been on steroids since admission. Patient has remained afebrile throughout hospitalization. Patient completed 1 week of IV Cefepime in addition to ~3 days of oral bactrim. Recommend close follow up with Dr. Mejia within 1 week for continued management and to monitor CBC/WBC. WBC on discharge: 18.8 Patient was feeling better, breathing more comfortably on room air, secretions improved, and was deemed stable for discharge. Dr. Mejia recommended 1 more week of augmentin and doxycycline on discharge. He did report some intermittent abdominal pain throughout hospitalization. CT abdomen done 08/06 noted moderate stool retention, other chronic findings similar to multiple past CTs. No new findings. Suspect pain secondary to acute flare up of chronic gastritis / GERD / esophagitis possibly further exacerbated by steroid use Advised patient to increase home pantoprazole to 40 mg twice a day for 1 month, then back to once a day. Consider repeat EGD in the near future to further evaluate if you haven't had one in recent past. Consider stool softener, daily laxative to help assist with bowel movements in the short term. Medications: Pantoprazole increased to 40 mg twice daily for 1 month Augmentin and Doxycycline - for 1 week Prednisone 10mg twice daily for 5 days Follow up: PCP 3-[address] Mejia, pulm within 1 week Please call to schedule / confirm appointments Physical Exam: GEN: Alert, oriented, NAD CV: Regular rate and rhythm, no edema Pulm: Nonlabored respirations on room air, clear bilaterally Abd: soft, minimal epigastric tenderness, nondistended Vital Signs/Physical Exam: Temp Pulse Resp BP Pulse Ox 98.9 F 81 16 121/79 95 08/06/24 04:00 08/06/24 04:00 08/06/24 04:00 08/06/24 04:00 08/06/24 04:00 Laboratory Data at Discharge: WBC 18.80 thou/uL (4.3-10.9) H 08/06/24 06:00 Hgb 14.1 g/dL (13.6-17.9) 08/06/24 06:00 Hct 41.2 % (39.6-49.0) 08/06/24 06:00 Plt Count 247 thou/uL (152-406) 08/06/24 06:00 PT 11.0 SECONDS (10-13.0) 07/28/24 20:18 INR 0.96 07/28/24 20:18 APTT 27.7 SECONDS (27.2-37.4) 07/28/24 20:18 Sodium 134 mEq/L (136-145) L 08/06/24 06:00 Potassium 4.1 mEq/L (3.5-5.1) 08/06/24 06:00 BUN 22 mg/dL (7-18) H 08/06/24 06:00 Creatinine 0.79 mg/dL (0.70-1.30) 08/06/24 06:00 Glucose 127 mg/dL (74-106) H 08/06/24 06:00 Phosphorus 4.4 mg/dL (2.5-4.9) 07/29/24 04:10 Magnesium 2.3 mg/dL (1.6-2.4) 08/06/24 06:00 Total Bilirubin 0.5 mg/dL (0.2-1.0) 08/06/24 06:00 AST 12 U/L (15-37) L 08/06/24 06:00 ALT 54 U/L (16-61) 08/06/24 06:00 Alkaline Phosphatase 97 U/L (45-117) 08/06/24 06:00 Triglycerides 62 mg/dL (<150) 07/29/24 04:10 Cholesterol 185 mg/dL (<200) 07/29/24 04:10 HDL Cholesterol 92 mg/dL (40-60) H 07/29/24 04:10 Cholesterol/HDL Ratio 2.01 07/29/24 04:10 Lipase 25 U/L (13-75) 07/29/24 04:10 Home Medications: Escitalopram [Lexapro*] 20 mg PO DAILY #30 tab 02/16/21 Gabapentin [Neurontin*] 800 mg PO TID 12/11/22 Levothyroxine [Synthroid*] 0.1 mg PO [id number] 05/14/23 ARIPiprazole [Abilify*] 5 mg PO DAILY 07/18/24 Albuterol Sulfate [Albuterol Sulfate Hfa] 2 aero IH BID 07/18/24 Atorvastatin Calcium [Lipitor] 80 mg PO BEDTIME 07/18/24 Fluticasone Propion/Salmeterol [Fluticasone-Salmeterol 100-50] 1 mcg IH DAILY 07/18/24 Lipase/Protease/Amylase [Creon Dr 12,000 Unit Capsule] 1 each PO TID 07/29/24 Oxycodone HCl 10 mg PO Q8HP PRN 07/29/24 Amox/Clavulanate [Augmentin 875-125 Tab] 1 tab PO BID 7 Days #14 tab 08/06/24 Doxycycline Hyclate 100 mg PO BID 7 Days #14 tab 08/06/24 Pantoprazole Sodium [Protonix] 40 mg PO BID 30 Days #60 tab 08/06/24 predniSONE [Deltasone*] 10 mg PO BID 5 Days #10 tab 08/06/24 New Medications: Amox/Clavulanate [Augmentin 875-125 Tab] 1 tab PO BID 7 Days #14 tab predniSONE [Deltasone*] 10 mg PO BID 5 Days #10 tab Doxycycline Hyclate 100 mg PO BID 7 Days #14 tab Pantoprazole Sodium [Protonix] 40 mg PO BID 30 Days #60 tab Physician Discharge Instructions: Physician discharge instructions: Patient presented with worsening shortness of breath associated with increased secretions from tracheal stoma secondary to acute on chronic COPD exacerbation further exacerbated by acute tracheitis. Chest xray on admission was negative for any acute findings. Patient was started on IV steroids and IV antibiotics and had some improvement. Patient's leukocytosis trended up to 35k from 17.7 within the first [address] Mejia pulm was consulted and recommended adding doxycyline for extended coverage. Sputum culture grew Staph Aureus. Doxycycline was switched to Bactrim given the rise in WBC. Leukocytosis continued to fluctuate throughout hospitalization. IV steroids were deescalated to oral prednisone and patient continued to improve clinically. Peripheral blood smear noted reactive appearance to leukocytosis. Procalcitonin levels were checked twice and normal/negative. Given his negative imaging and inflammatory markers, suspect leukocytosis favoring a more reactive etiology. He has been on steroids since admission. Patient has remained afebrile throughout hospitalization. Patient completed 1 week of IV Cefepime in addition to ~3 days of oral bactrim. Recommend close follow up with Dr. Mejia within 1 week for continued management and to monitor CBC/WBC. WBC on discharge: 18.8 Patient was feeling better, breathing more comfortably on room air, secretions improved, and was deemed stable for discharge. Dr. Mejia recommended 1 more week of augmentin and doxycycline on discharge. He did report some intermittent abdominal pain throughout hospitalization. CT abdomen done 08/06 noted moderate stool retention, other chronic findings similar to multiple past CTs. No new findings. Suspect pain secondary to acute flare up of chronic gastritis / GERD / esophagitis possibly further exacerbated by steroid use Advised patient to increase home pantoprazole to 40 mg twice a day for 1 month, then back to once a day. Consider repeat EGD in the near future to further evaluate if you haven't had one in recent past. Consider stool softener, daily laxative to help assist with bowel movements in the short term. Medications: Pantoprazole increased to 40 mg twice daily for 1 month Augmentin and Doxycycline - for 1 week Prednisone 10mg twice daily for 5 days Follow up: PCP 3-5 days arelis Mason within 1 week Please call to schedule / confirm appointments Followup: Rafael Mejia MD [ACTIVE - CAN ADMIT] - 1 Week Michelle Justice NP [Primary Care Provider] - 1-2 Weeks Time spent managing pt's care (in minutes): 45
[2024-08-06 09:43] VITALS: O2SAT 98
== END 2024-08-06 09:50 | disposition home health service (06) | DRG 191 ==
LOC: ER 17:10 → ERHOLD 21:51 → 2ND 07-29 14:44 → OBSVTOIN 07-30 07:54
PROVIDERS: ADMIT Hospitalist; ATTEND Hospitalist
DX: J44.1 Chronic obstructive pulmonary disease with (acute) exacerbation (principal); K86.1 Other chronic pancreatitis; J04.10 Acute tracheitis without obstruction; F32.A Depression, unspecified; K29.70 Gastritis, unspecified, without bleeding; K59.04 Chronic idiopathic constipation; E03.9 Hypothyroidism, unspecified; C32.9 Malignant neoplasm of larynx, unspecified; K21.9 Gastro-esophageal reflux disease without esophagitis; Z93.0 Tracheostomy status; Z88.1 Allergy status to other antibiotic agents; Z79.52 Long term (current) use of systemic steroids; Z90.49 Acquired absence of other specified parts of digestive tract; Z91.041 Radiographic dye allergy status; Z79.890 Hormone replacement therapy; Z87.891 Personal history of nicotine dependence; Z79.899 Other long term (current) drug therapy
CPT/HCPCS: 36415; 71045; 71250; 74176; 80048; 80053; 80061; 80076; 82947; 83605; 83690; 83735; 83880; 84100; 84145; 84484; 85025; 85610; 85730; 87040; 87070; 87077; 87186; 87205; 93005; 94640; 94668; 94760; 96365; 96366; 96375; 99285; G0378; J0692; J1171; J1650; J2270; J2405; J2470; J2919; J7030; J7040; J7050; J7512; J7613; J7644

== ENCOUNTER 2024-08-08 11:09 | Emergency (ER) | payer OTHER ==
[2024-08-08] MEDS ORDERED: IPRATROPIUM BROM 0.5MG/2.5ML ONE (11:48)
[2024-08-08] MEDS ORDERED: ALBUTEROL 2.5 MG/3 ML NEB SOL ONE (11:48)
[2024-08-08] MEDS ORDERED: ONDANSETRON 4 MG/2 ML VIAL ONE (11:49)
[2024-08-08 11:57] LABS: Absolute Eosinophils 0.1 K/uL (0-0.5); Absolute Lymphocytes (CBC) 1.6 K/uL (0.7-4.9); Absolute Monocytes 0.8 K/uL (0.1-1.3); Absolute Neutrophil 11.2 K/uL (1.8-8.0); Basophils % 0.2 % (0-1.3); Eosinophils % 0.9 % (0-4.4); Hematocrit 40.2 % (39.6-49.0); Hemoglobin 13.6 g/dL (13.6-17.9); Lymphocytes % 11.6 % (15.3-44.8); MCH 30.3 pg (27.0-35.0); MCHC 33.9 g/dL (32.0-36.0); MCV 89.4 fL (80-100); MPV 7.6 fL (7.6-11.3); Monocytes % 6.1 % (3.3-12.3); Neutrophils % 81.2 % (41.7-73.7); Platelets 209 thou/uL (152-406); Red Cell Distribution Width 16.8 % (12.1-15.2)
[2024-08-08 12:13] LABS: Anion Gap 8.7 mEq/L (5.0-15.0); Potassium 3.7 mEq/L (3.5-5.1)
[2024-08-08] MEDS ORDERED: METHYLPREDNISOLONE 125 MG INJ ONE (12:27)
[2024-08-08 12:51] LABS: Band Neutrophils 1 % (0-1); Blood Morphology Comment NOT SEEN (NOT SEEN); Differential Total Cells Count 100; Lymphocytes 20 % (15-42); Metamyelocytes 2 % (0-0); Monocytes 4 % (0-10); Platelet Estimate ADEQ; Segmented Neutrophils 73 % (40-80)
[2024-08-08] MEDS ORDERED: HYDROCODONE/APAP 5/325 MG TAB ONE (13:01)
--- NOTE | 2024-08-08 13:09 | RAD REPORT ---
Procedure: Chest Single View HISTORY: Cough COMPARISON: August 03, 2024 FINDINGS: The lungs appear clear of acute infiltrate. No significant pleural effusion noted. The heart is normal size. IMPRESSION: No acute abnormality is displayed.
--- NOTE | 2024-08-08 13:27 | EDPHYS ---
Physician Documentation [facility] Name: Akin Pugh Age: 54 yrs Sex: Male : 1970 Arrival Date: 08/08/2024 Time: 11:09 Bed 2 Private MD: ED Physician Jason Anderson HPI: 08/08 12:46 This 54 yrs old Male presents to ER via Ambulatory with complaints of Breathing rn Difficulty, Abdominal Pain. 12:46 The patient has shortness of breath at rest, with light activity. Onset: The rn symptoms/episode began/occurred at an unknown time. Patient with recent admission to hospital for COPD exacerbation. Patient reports discharge 2 days ago and having shortness of breath again. Patient is still taking antibiotics and steroids. No gross changes. No hemoptysis. Patient also reports chronic pancreatitis and feels nauseated.. Historical: - Allergies: 11:28 Ampicillin; ss 11:28 Iodinated Contrast Media - IV Dye; ss 11:28 Iodine; ss 11:28 Levaquin; ss - PMHx: 11:28 Asthma; Congestive heart failure; COPD; Pancreatitis; THROAT CA; ss - PSHx: 11:28 Cholecystectomy; Appendectomy; Laryngectomy; tracheostomy; ss - Immunization history:: Adult Immunizations unknown. - Infectious Disease History:: Denies. - Family history:: not pertinent. - Hospitalizations: : No recent hospitalization is reported. - Social history:: Smoking status: Patient reports the use of cigarette tobacco products, unknown amount. ROS: 12:46 Constitutional: Negative for fever, chills, and weight loss, Cardiovascular: Negative rn for chest pain, palpitations, and edema, Respiratory: Positive for cough and shortness of breath Abdomen/GI: Positive for mild upper abdominal pain with nausea MS/Extremity: Negative for injury and deformity, Skin: Negative for injury, rash, and discoloration, Neuro: Negative for headache, weakness, numbness, tingling, and seizure, Exam: 12:46 Constitutional: This is a well developed, well nourished patient who is awake, alert, rn and in no acute distress. Cardiovascular: Regular rate and rhythm. No pulse deficits. Respiratory: No increased work of breathing, no retractions or nasal flaring. Abdomen/GI: Soft, non-tender, nondistended and no peritoneal signs MS/ Extremity: Pulses equal, no cyanosis. Neuro: Awake and alert, GCS 15 Vital Signs: 11:12 BP 120 / 89; Pulse 82; Resp 17; Temp 98.2(O); Pulse Ox 100% on R/A; Weight 77.11 kg; ss Height 5 ft. 11 in. ; Pain 0/10; 12:50 BP 131 / 69; Pulse 85; Resp 17; Pulse Ox 96% ; bp 13:54 BP 130 / 59; Pulse 85; Resp 17; Pulse Ox 96% ; bp 11:12 Body Mass Index 23.71 (77.11 kg, 180.34 cm) ss 11:12 Pain Scale: Adult ss MDM: 11:23 Medical Screening Exam initiated rn 13:24 Differential diagnosis: Chronic Obstructive Pulmonary Disease Myocardial Infarction rn pneumonia, Pneumothorax pulmonary edema. Data reviewed: vital signs, nurses notes, lab test result(s), radiologic studies, plain films, and as a result, I will discharge patient. 13:25 Counseling: I had a detailed discussion with the patient and/or guardian regarding the rn historical points, exam findings, and any diagnostic results supporting the discharge/admit diagnosis, lab results, radiology results, the need for outpatient follow up, to return to the emergency department if symptoms worsen or persist or if there are any questions or concerns that arise at home. Special discussion: I discussed with the patient/guardian in detail that at this point there is no indication for admission to the hospital. It is understood, however, that if the symptoms persist or worsen the patient needs to return immediately for re-evaluation. ED course: No acute findings and workup today. Mild elevation of WBC but likely secondary to steroids that he has been on for the last week. Chest x-ray images are improved compared to in the hospital and no acute findings. Chest x-ray images negative for pneumonia or pneumothorax per my interpretation. Patient also with chronic pancreatitis but no indication at this time for emergent admission.. 08/08 11:30 Order name: CBC with Diff; Complete Time: 13:12 rn 08/08 11:30 Order name: Basic Metabolic Panel; Complete Time: 12:24 rn 08/08 11:30 Order name: Lipase; Complete Time: 12:24 rn 08/08 12:51 Order name: Manual Differential; Complete Time: 13:12 EDMS 08/08 11:30 Order name: XRAY Chest (1 view); Complete Time: 13:12 rn 08/08 11:30 Order name: IV Start; Complete Time: 11:46 rn 08/08 11:30 Order name: Cardiac monitoring; Complete Time: 11:46 rn 08/08 11:30 Order name: O2 Sat Monitoring; Complete Time: 11:37 rn 08/08 12:49 Order name: PO challenge; Complete Time: 12:54 rn Administered Medications: 11:56 Drug: Ipratropium Inhalation Aerosol 0.5 mg Inhalation once Route: Inhalation; bp 11:56 Drug: Ondansetron IVP 4 mg IVP once; over 2 minutes Route: IVP; Site: left forearm; bp 13:55 Follow up: Response: No adverse reaction bp 11:57 Drug: Levalbuterol Inhalation 1.25 mg Inhalation once Route: Inhalation; bp 12:00 Drug: MethylPrednisoLONE IVP 125 mg IVP once Route: IVP; Site: left forearm; bp 13:55 Follow up: Response: No adverse reaction bp 13:05 Drug: HYDROcodone-acetaminophen PO 5 mg-325 mg 1 tabs PO once Route: PO; bp 13:55 Follow up: Response: No adverse reaction bp Disposition Summary: 08/08/24 13:26 Discharge Ordered Notes: Location: Home rn Problem: an acute exacerbation rn Symptoms: have improved rn Condition: Stable rn Diagnosis - COPD/ Chronic obstructive pulmonary disease, unspecified rn - Other chronic pancreatitis rn Followup: rn - With: Private Physician - When: As needed - Reason: Recheck today's complaints, Re-evaluation by your physician Discharge Instructions: - Discharge Summary Sheet rn - Chronic Obstructive Pulmonary Disease rn - Chronic Pancreatitis rn Forms: - Medication Reconciliation Form rn - Antibiotic software development intern - Prescription Opioid Use rn - Patient Portal Instructions rn - Leadership Thank You Letter rn Signatures: Dispatcher [employer] EDJason Cortes MD MD rn Blanchard, Shelby, RN RN Turner Bernard RN RN bp Corrections: (The following items were deleted from the chart) 11:30 11:30 Chest Single View+[email or web address] ordered. EDPR EDMS
--- NOTE | 2024-08-08 13:27 | ER ---
Nurse's Notes [facility] Name: Akin Pugh Age: 54 yrs Sex: Male : 1970 Arrival Date: 08/08/2024 Time: 11:09 Bed 2 Private MD: Diagnosis: COPD/ Chronic obstructive pulmonary disease, unspecified;Other chronic pancreatitis Presentation: 08/08 11:12 Chief complaint: Patient states: SOB and abd pain that have been ongoing x 1 month. Pt ss recently discharged from hospital. Coronavirus screen: Client denies travel out of the [place] in the last 14 days. Ebola Screen: Patient denies exposure to infectious person. Patient denies travel to an Ebola-affected area in the 21 days before illness onset. Initial Sepsis Screen: Does the patient meet any 2 criteria? No. Patient's initial sepsis screen is negative. Does the patient have a suspected source of infection? No. Patient's initial sepsis screen is negative. Risk Assessment: Do you want to hurt yourself or someone else? Patient reports no desire to harm self or others. Onset of symptoms was July 2023. 11:12 Method Of Arrival: Ambulatory ss 11:12 Acuity: PAO 3 ss Triage Assessment: 11:15 General: Appears in no apparent distress. unkempt, Behavior is cooperative, appropriate bp for age, anxious. Pain: Complains of pain in abdomen. EENT: Throat TRACH. Neuro: No deficits noted. Cardiovascular: Rhythm is sinus rhythm. Respiratory: Reports shortness of breath Onset: The symptoms/episode began/occurred at an unknown time. the patient has mild shortness of breath. GI: No signs and/or symptoms were reported involving the gastrointestinal system. : No signs and/or symptoms were reported regarding the genitourinary system. Derm: No deficits noted. Musculoskeletal: No deficits noted. Historical: - Allergies: 11:28 Ampicillin; ss 11:28 Iodinated Contrast Media - IV Dye; ss 11:28 Iodine; ss 11:28 Levaquin; ss - PMHx: 11:28 Asthma; Congestive heart failure; COPD; Pancreatitis; THROAT CA; ss - PSHx: 11:28 Cholecystectomy; Appendectomy; Laryngectomy; tracheostomy; ss - Immunization history:: Adult Immunizations unknown. - Infectious Disease History:: Denies. - Family history:: not pertinent. - Hospitalizations: : No recent hospitalization is reported. - Social history:: Smoking status: Patient reports the use of cigarette tobacco products, unknown amount. Screenin:15 [facility] ED Fall Risk Assessment (Adult) History of falling in the last 3 months, bp including since admission No falls in past 3 months (0 pts) Confusion or Disorientation No (0 pts) Intoxicated or Sedated No (0 pts) Impaired Gait No (0 pts) Mobility Assist Device Used No (0 pt) Altered Elimination No (0 pt) Score/Fall Risk Level 0 - 2 = Low Risk Oriented to surroundings. Abuse screen: Denies threats or abuse. Denies injuries from another. Nutritional screening: No deficits noted. Tuberculosis screening: No symptoms or risk factors identified. Assessment: 11:15 General: Appears in no apparent distress. comfortable, Behavior is cooperative, bp appropriate for age, anxious. Cardiovascular: Rhythm is sinus rhythm. Respiratory: Airway TRACH Respiratory effort is even, Breath sounds are coarse bilaterally. 12:50 Reassessment: No changes from previously documented assessment. Patient is alert, bp oriented x 3, equal unlabored respirations, skin warm/dry/pink. Vital Signs: 11:12 BP 120 / 89; Pulse 82; Resp 17; Temp 98.2(O); Pulse Ox 100% on R/A; Weight 77.11 kg; ss Height 5 ft. 11 in. ; Pain 0/10; 12:50 BP 131 / 69; Pulse 85; Resp 17; Pulse Ox 96% ; bp 13:54 BP 130 / 59; Pulse 85; Resp 17; Pulse Ox 96% ; bp 11:12 Body Mass Index 23.71 (77.11 kg, 180.34 cm) ss 11:12 Pain Scale: Adult ED Course: 11:11 Patient arrived in ED. mr 11:15 Turner Nickerson, RN is Primary Nurse. bp 11:15 Patient has correct armband on for positive identification. bp 11:23 Jason Anderson MD is Attending Physician. rn 11:28 Triage completed. ss 11:28 Arm band placed on right wrist. ss 11:45 Initial lab(s) drawn, by nv, sent to lab. Inserted saline lock: 20 gauge in left aa5 forearm, using aseptic technique. Blood collected. Flushed with 10 mL NS. 12:39 XRAY Chest (1 view) In Process Unspecified. EDMS 13:55 No provider procedures requiring assistance completed. IV discontinued, intact, bp bleeding controlled, No redness/swelling at site. Pressure dressing applied. Administered Medications: 11:56 Drug: Ipratropium Inhalation Aerosol 0.5 mg Inhalation once Route: Inhalation; bp 11:56 Drug: Ondansetron IVP 4 mg IVP once; over 2 minutes Route: IVP; Site: left forearm; bp 13:55 Follow up: Response: No adverse reaction bp 11:57 Drug: Levalbuterol Inhalation 1.25 mg Inhalation once Route: Inhalation; bp 12:00 Drug: MethylPrednisoLONE IVP 125 mg IVP once Route: IVP; Site: left forearm; bp 13:55 Follow up: Response: No adverse reaction bp 13:05 Drug: HYDROcodone-acetaminophen PO 5 mg-325 mg 1 tabs PO once Route: PO; bp 13:55 Follow up: Response: No adverse reaction bp Medication: 13:56 VIS not applicable for this client. bp Outcome: 13:26 Discharge ordered by . rn 13:55 Discharged to home ambulatory, bp 13:55 Condition: stable 13:55 Discharge instructions given to patient, Instructed on discharge instructions, follow up and referral plans. Demonstrated understanding of instructions, follow-up care, 13:56 Patient left the ED. bp Signatures: Dispatcher [employer] EDMS Aury Prescott, Reg Jsaon Chowdary MD MD rn Calderon, Audri, RN RN aa5 Monae Grace RN RN ss Turner Nickerson, RN RN bp
[2024-08-08 14:10] VITALS: TEMP 98.2
[2024-08-08 14:13] VITALS: O2SAT 96
[2024-08-08 14:15] VITALS: BP 130/59
== END 2024-08-08 13:56 | disposition home or self-care (01) ==
LOC: ER 11:09
DX: J44.9 Chronic obstructive pulmonary disease, unspecified (principal); K86.1 Other chronic pancreatitis; I50.9 Heart failure, unspecified; Z72.0 Tobacco use
CPT/HCPCS: 85025; 80048; 36415; 83690; 71045; 96375; 96374; 99285; J7613; J7644; J2919; J2405

== ENCOUNTER 2024-08-23 19:12 | Emergency (ER) | payer OTHER ==
[2024-08-23] MEDS ORDERED: MORPHINE 2 MG/ML SYR ONE (19:27)
[2024-08-23] MEDS ORDERED: IPRATROPIUM BROM 0.5MG/2.5ML ONE (19:27)
[2024-08-23] MEDS ORDERED: ALBUTEROL 2.5 MG/3 ML NEB SOL ONE (19:27)
[2024-08-23] MEDS ORDERED: METHYLPREDNISOLONE 125 MG INJ ONE (19:27)
[2024-08-23] MEDS ORDERED: MORPHINE 4 MG/ML SYR ONE (19:28)
[2024-08-23] MEDS ORDERED: VANCOMYCIN 1 GM/VIAL ONE (19:28)
[2024-08-23] MEDS ORDERED: ONDANSETRON 4 MG/2 ML VIAL ONE (19:28)
[2024-08-23] MEDS ORDERED: droPERidol 5 MG/2 ML VIAL ONE (19:28)
[2024-08-23] MEDS ORDERED: CEFEPIME 2 GM VIAL ONE (19:28)
[2024-08-23] MEDS ORDERED: NA CHLORIDE 0.9% 100 ML ONE (19:29)
[2024-08-23] MEDS ORDERED: NA CHLORIDE 0.9% 500 ML ONE (19:29)
[2024-08-23 19:32] LABS: Absolute Basophils 0.1 K/uL (0-0.5); Absolute Lymphocytes (CBC) 0.8 K/uL (0.7-4.9); Absolute Monocytes 1.1 K/uL (0.1-1.3); Absolute Neutrophil 9.2 K/uL (1.8-8.0); Basophils % 0.5 % (0-1.3); Eosinophils % 0.3 % (0-4.4); Hematocrit 35.2 % (39.6-49.0); Lymphocytes % 7.2 % (15.3-44.8); MCH 30.3 pg (27.0-35.0); MCHC 34.1 g/dL (32.0-36.0); MCV 88.9 fL (80-100); MPV 7.5 fL (7.6-11.3); Monocytes % 9.5 % (3.3-12.3); Neutrophils % 82.5 % (41.7-73.7); Nucleated Red Blood Cells % 0.1 % (0-0); Platelets 304 thou/uL (152-406); RBC Red Blood Cell Count 3.95 M/uL (4.33-5.43); Red Cell Distribution Width 16.4 % (12.1-15.2)
[2024-08-23 19:50] LABS: PT Prothrombin Time 13.9 SECONDS (10-13.0); PTT, Activated Partial Thromb 32.7 SECONDS (27.2-37.4); Protime INR 1.23
[2024-08-23 20:00] LABS: Albumin/Globulin Ratio 0.8 (1.1-1.8); Anion Gap 8.5 mEq/L (5.0-15.0); Bilirubin Direct 0.2 mg/dL (0-0.2); Bilirubin Indirect, Calculated 0.7 mg/dL (0.2-0.8); Bilirubin Total 0.9 mg/dL (0.2-1.0); Potassium 3.5 mEq/L (3.5-5.1); Troponin High Sensitivity 8.2 pg/mL (<58.9)
[2024-08-23] MEDS ORDERED: ACETAMINOPHEN 500 MG TAB ONE (20:58)
[2024-08-23] MEDS ORDERED: KETOROLAC 30 MG/ML INJ ONE (20:58)
--- NOTE | 2024-08-23 22:24 | RAD REPORT ---
EXAM: CT CHEST, ABDOMEN AND PELVIS WITHOUT CONTRAST CLINICAL INDICATION: Male, 54 years old. [facility] MAIN CHEST PAIN Bed Name: 3 TECHNIQUE: CT chest, abdomen and pelvis was performed, without IV contrast, as per department protoco l. Axial, sagittal and coronal reconstructions were obtained. One or more of the following dose reduction techniques were used: Automated exposure control, adjustment of the mA and/or kV according to the patient size, and/or iterative reconstruction. Unless otherwise specified, incidental findings do not require dedicated imaging follow-up. COMPARISON: 08/06/2024 FINDINGS: The lack of intravenous contrast limits the sensitivity of this exam for evaluation of solid visceral organs, vascular structures, and retroperitoneum. Chest: LOWER NECK/CHEST WALL: Tracheostomy defect in place. Visualized thyroid gland and soft tissues are no rmal. LUNGS AND AIRWAYS: Luminal collapse along the right and left bronchi and there branches. Tree-in-bud nodular opacities along the central upper lobes bilaterally and to lesser extent right lower lobe, although motion artifact limits evaluation PLEURA: No pleural effusion. No pneumothorax. Hemidiaphragms are normally positioned. MEDIASTINUM AND LYMPH NODES: No mediastinal mass or fluid collection. Normal size mediastinal, hilar, and axillary lymph nodes. THORACIC AORTA: Normal caliber and configuration. PULMONARY ARTERIES: Normal caliber. HEART: Unremarkable. Abdomen/Pelvis LIVER: Normal in size and contour. No focal lesion. GALLBLADDER/BILE DUCTS: Status post cholecystectomy. No biliary ductal dilatation. PANCREAS: No mass, ductal dilation, or selene-pancreatic fluid. SPLEEN: Normal size. No focal lesion. ADRENALS: Normal; no mass. KIDNEYS AND URETERS: Normal size and contour. No hydronephrosis. GASTROINTESTINAL TRACT: Stomach is non-dilated. Small bowel has normal course and caliber. No colonic wall thickening or pericolonic inflammatory changes. Distal colonic diverticulosis without evidence of acute diverticulitis. PERITONEUM: No free fluid. LYMPH NODES: No lymphadenopathy. ABDOMINAL AORTA AND OTHER VESSELS: Normal caliber aorta and IVC. URINARY BLADDER: Normal contour. REPRODUCTIVE ORGANS: No pathologic process. MUSCULOSKELETAL: No acute or suspicious osseous abnormality. ADDITIONAL FINDINGS: None IMPRESSION: Bilateral tree-in-bud opacities involving the upper lobes, concerning for an infectious or inflammato ry process such as pneumonitis. No acute or significant abnormalities in the abdomen, or pelvis. Incidental findings as above.
--- NOTE | 2024-08-23 23:15 | ER ---
Nurse's Notes [facility] Name: Akin Pugh Age: 54 yrs Sex: Male : 1970 Arrival Date: 08/23/2024 Time: 19:12 Bed 3 Private MD: Diagnosis: Bilateral pneumonia, COPD exacerbation, bacterial tracheitis , noncardiac chest pain Presentation: 08/23 19:16 Chief complaint: EMS states: Per EMS patient c/o difficulty breathing and coughing up bp green phlegm x1day. He is alert and oriented x3. 19:16 Risk Assessment: Do you want to hurt yourself or someone else? Patient reports no bp desire to harm self or others. Onset of symptoms was August 22, 2024. Care prior to arrival: Medication(s) given: 19:16 Method Of Arrival: EMS: [facility] bp 19:16 Acuity: PAO 3 bp 23:36 Coronavirus screen: At this time, the client does not indicate any symptoms associated tb4 with coronavirus-19. Ebola Screen: No symptoms or risks identified at this time. Initial Sepsis Screen: Does the patient meet any 2 criteria? No. Patient's initial sepsis screen is negative. 23:37 Initial Sepsis Screen: Does the patient have a suspected source of infection? No. tb4 Patient's initial sepsis screen is negative. Triage Assessment: 19:24 General: Appears in no apparent distress. uncomfortable, Behavior is calm, cooperative, bp appropriate for age. Historical: - Allergies: 19:24 Ampicillin; bp 19:24 Iodinated Contrast Media - IV Dye; bp 19:24 Iodine; bp 19:24 Levaquin; bp - PMHx: 19:24 Asthma; Congestive heart failure; Pancreatitis; COPD; THROAT CA; bp - PSHx: 19:24 Appendectomy; Cholecystectomy; Laryngectomy; tracheostomy; bp - Immunization history:: Adult Immunizations unknown. - Infectious Disease History:: Denies. - Family history:: not pertinent. - Social history:: Smoking status: Patient reports the use of cigarette tobacco products, unknown amount. - Code Status:: Full code. Screenin:54 [facility] ED Fall Risk Assessment (Adult) History of falling in the last 3 months, bm8 including since admission No falls in past 3 months (0 pts) Confusion or Disorientation No (0 pts) Intoxicated or Sedated No (0 pts) Impaired Gait No (0 pts) Mobility Assist Device Used No (0 pt) Altered Elimination No (0 pt) Score/Fall Risk Level 0 - 2 = Low Risk Oriented to surroundings, Maintained a safe environment, Educated pt \T\ family on fall prevention, incl call for assistance when getting out of bed, Assessed \T\ reinforced patient's understanding of fall precautions, Hourly rounding (assess needs \T\ fall precautionary measures) done, Used ambulatory aids as needed (educated on \T\ assisted with), Used gait belt as appropriate. Abuse screen: Denies threats or abuse. Nutritional screening: No deficits noted. Tuberculosis screening: No symptoms or risk factors identified. Assessment: 19:59 General: Appears uncomfortable, Behavior is calm, cooperative, appropriate for age. bm8 Pain: Denies pain. Neuro: No deficits noted. Level of Consciousness is awake, alert, obeys commands, Oriented to person, place, time, situation, Appropriate for age [employer] are equal bilaterally Moves all extremities. Full function Reports Difficulty breathing and coughing up green phlegm. x1 day. Respiratory: Respiratory effort is unlabored, Respiratory pattern is Breath sounds are diminished bilaterally. : Urine is clear. EENT: Throat Patient has a Stoma. Derm:. Musculoskeletal:. 22:42 Reassessment: Patient appears in no apparent distress at this time. Patient and/or bm8 family updated on plan of care and expected duration. Pain level reassessed. pt is resting with eyes closed breathing is even unlabored with symmetrical rise and fall of chest. Patient denies pain at this time. Patient states feeling better. Patient states symptoms have improved. Vital Signs: 19:16 BP 113 / 67; Pulse 101; Resp 18; Temp 101.4; Pulse Ox 95% on R/A; Weight 79.38 kg; bp Height 5 ft. 11 in. ; Pain 0/10; 19:25 BP 113 / 67; Pulse 101; Resp 18; Temp 101.4; Pulse Ox 95% on R/A; Weight 79.38 kg; bp Height 5 ft. 11 in. ; Pain 0/10; 22:42 BP 98 / 63; Pulse 75; Resp 14; Temp 98.8; Pulse Ox 94% on trach mask; Pain 0/10; bm8 23:19 BP 103 / 69; Pulse 100; Resp 18; Pulse Ox 95% on R/A; Pain 0/10; bm8 19:25 Body Mass Index 24.41 (79.38 kg, 180.34 cm) bp 19:16 Pain Scale: Adult bp 19:25 Pain Scale: Adult bp 22:42 Pain Scale: Adult bm8 23:19 Pain Scale: Adult bm8 [place] Coma Score: 22:42 Eye Response: to voice(3). Motor Response: obeys commands(6). Verbal Response: bm8 oriented(5). Total: 14. ED Course: 19:14 Patient arrived in ED. hw 19:15 Clarke Morris MD is Attending Physician. sp4 19:15 No provider procedures requiring assistance completed. bm8 19:15 Initial lab(s) drawn, by me, sent to lab. First set of blood cultures drawn by me. bm8 Initial Neb Treatment Given as ordered Patient was instructed and evaluated on procedure. Inserted saline lock: 20 gauge in left antecubital area, using aseptic technique. Blood collected. Flushed with 10 mL NS. 19:16 Turner Nickerson, RN is Primary Nurse. bp 19:24 Triage completed. bp 19:29 Magnesium Sent. km10 19:29 NT PRO-BNP Sent. km10 19:29 PT-INR Sent. km10 19:29 Ptt, Activated Sent. km10 19:29 Troponin HS Sent. km10 19:29 Lipase Sent. km10 19:29 Hepatic Function Sent. km10 19:29 CPK Sent. km10 19:29 CBC with Diff Sent. km10 19:30 Second set of blood cultures drawn by ut. bm8 19:46 BMP Sent. bp 19:46 Blood Culture Adult (2) Sent. bp 19:46 CPK Sent. bp 19:46 Hepatic Function Sent. bp 19:47 Lipase Sent. bp 19:51 EKG done, by ED staff, reviewed by Clarke Morris MD. bm8 19:54 Placed in gown. Bed in low position. Call light in reach. Client placed on continuous bm8 cardiac and pulse oximetry monitoring. NIBP monitoring applied. teletypesetter monitor on. Pulse ox on. Door closed. Noise minimized. Pillow given. Verbal reassurance given. Head of bed lowered. 20:43 Chest Abd Pelvis Wo Con In Process Unspecified. EDMS 22:42 Patient admitted, IV remains in place. bm8 22:42 Provided Education on: need for admission. bm8 23:36 Arm band placed on left wrist. tb4 Administered Medications: 19:40 Drug: Albuterol Inhalation 2.5 mg Inhalation every 20 minutes x3 Route: Inhalation; bm8 19:40 Drug: Ipratropium Inhalation Aerosol 0.5 mg Inhalation once; Every 20 min for a total bm8 of 3 treatments x3 Route: Inhalation; 19:49 Drug: MethylPrednisoLONE IVP 125 mg IVP once Route: IVP; Site: left antecubital; bm8 22:45 Follow up: Response: No adverse reaction bm8 19:49 Drug: Cefepime IVPB 2 grams IVPB at 200 ml/hr once over 30 mins; (mix in NS 100 mL) bm8 Route: IVPB; Rate: 200 ml/hr; Infused Over: 30 mins; Site: left antecubital; 22:45 Follow up: Response: No adverse reaction; IV Status: Completed infusion bm8 19:50 Drug: morphine IVP or IV 6 mg IVP once over 4 mins Route: IVP; Infused Over: 4 mins; bm8 Site: left antecubital; 22:45 Follow up: Response: No adverse reaction bm8 19:50 Drug: Ondansetron IVP 4 mg IVP once; over 2 minutes Route: IVP; Site: left antecubital; bm8 22:44 Follow up: Response: No adverse reaction bm8 19:50 Drug: Droperidol IVP 2.5 mg IVP once Route: IVP; Site: left antecubital; bm8 22:44 Follow up: Response: No adverse reaction bm8 20:00 Drug: Albuterol Inhalation 2.5 mg Inhalation every 20 minutes x3 Route: Inhalation; bm8 20:00 Drug: Ipratropium Inhalation Aerosol 0.5 mg Inhalation once; Every 20 min for a total bm8 of 3 treatments x3 Route: Inhalation; 20:03 Drug: vancoMYCIN IVPB 2 grams IVPB at calculated rate once Route: IVPB; Rate: bm8 calculated rate; Site: left antecubital; 22:45 Follow up: Response: No adverse reaction; IV Status: Completed infusion bm8 20:57 Drug: Albuterol Inhalation 2.5 mg Inhalation every 20 minutes x3 Route: Inhalation; bm8 22:45 Follow up: Response: No adverse reaction bm8 20:57 Drug: Ipratropium Inhalation Aerosol 0.5 mg Inhalation once; Every 20 min for a total bm8 of 3 treatments x3 Route: Inhalation; 22:45 Follow up: Response: No adverse reaction bm8 21:00 Drug: Acetaminophen PO 1000 mg PO once Route: PO; bm8 22:44 Follow up: Response: No adverse reaction bm8 21:00 Drug: Ketorolac IVP 30 mg IVP once Route: IVP; Site: left antecubital; bm8 22:44 Follow up: Response: No adverse reaction bm8 Medication: 20:43 VIS not applicable for this client. bm8 Outcome: 23:15 Discharge ordered by . spTyler 23:24 Discharged to home ambulatory, tb4 23:24 Condition: stable 23:24 Discharge instructions given to patient, Instructed on discharge instructions, follow up and referral plans. no drinking with medication, no driving heavy equipment, medication usage, benefits of quitting smoking, safety practices, Demonstrated understanding of instructions, follow-up care, medications, Prescriptions given X 4, 23:38 Patient left the ED. tb4 Signatures: Dispatcher [employer] EDTurner Gusman, RN RN Clarke Waller MD MD sp4 Macario Green RN RN bm8 Traci Cotton Kirsten RN RN km10 Marisa Uribe, RN RN tb4
--- NOTE | 2024-08-23 23:15 | EDPHYS ---
Physician Documentation [facility] Name: Akin Pugh Age: 54 yrs Sex: Male : 1970 Arrival Date: 08/23/2024 Time: 19:12 Bed 3 Private MD: ED Physician Clarke Morris HPI: 08/23 19:15 This 54 yrs old Male presents to ER via Unassigned with complaints of chest sp4 pain . 08/24 20:08 54-year-old male presents to complain of chest pain and shortness of breath and also sp4 persistent cough.. 20:09 Associated complaint productive cough of green phlegm. Patient has tracheostomy patent sp4 stoma. History of congestive heart failure, chronic pancreatitis, COPD and throat cancer with prior tracheostomy.. Historical: - Allergies: 08/23 19:24 Ampicillin; bp 19:24 Iodinated Contrast Media - IV Dye; bp 19:24 Iodine; bp 19:24 Levaquin; bp - PMHx: 19:24 Asthma; Congestive heart failure; Pancreatitis; COPD; THROAT CA; bp - PSHx: 19:24 Appendectomy; Cholecystectomy; Laryngectomy; tracheostomy; bp - Immunization history:: Adult Immunizations unknown. - Infectious Disease History:: Denies. - Family history:: not pertinent. - Social history:: Smoking status: Patient reports the use of cigarette tobacco products, unknown amount. - Code Status:: Full code. ROS: 08/24 20:09 Constitutional: Negative for fever, chills, and weight loss, positive cough and sp4 positive green sputum, positive chest pain positive shortness of breath All other systems are negative, Exam: 20:09 Constitutional: This is a well developed, well nourished patient who is awake, alert, sp4 and in no acute distress. Head/Face: Normocephalic, atraumatic. Eyes: Pupils equal round and reactive to light, extra-ocular motions intact. Lids and lashes normal. Conjunctiva and sclera are not injected. Cornea within normal limits. Periorbital areas with no swelling, redness, or edema. ENT: Nares patent. No nasal discharge, no septal abnormalities noted. Tympanic membranes are normal and external auditory canals are clear. Oropharynx with no redness, swelling, or masses, exudates, or evidence of obstruction, uvula midline. Mucous membranes moist. Neck: Trachea midline, no thyromegaly or masses palpated, and no cervical lymphadenopathy. Supple, full range of motion, patent tracheostomy stoma open. Chest/axilla: Normal chest wall appearance and motion. Nontender with no deformity. No lesions are appreciated. Cardiovascular: Regular rate and rhythm with a normal S1 and S2. No gallops, murmurs, or rubs. Normal PMI, no JVD. No pulse deficits. Respiratory: Lungs have equal breath sounds bilaterally, clear to auscultation and percussion. No rales, rhonchi or wheezes noted. No increased work of breathing, no retractions or nasal flaring. Abdomen/GI: Soft, with normal bowel sounds. No distension or tympany. No guarding or rebound. No evidence of tenderness throughout. Back: No spinal tenderness. No costovertebral tenderness. Skin: Warm, dry with normal turgor. Normal color with no rashes, no lesions, and no evidence of cellulitis. MS/ Extremity: Pulses equal, no cyanosis. Neurovascular intact. Full, normal range of motion. Neuro: Awake and alert, GCS 15, oriented to person, place, time, and situation. Cranial nerves II-XII grossly intact. Motor strength 5/5 in all extremities. Sensory grossly intact. Psych: Awake, alert, with orientation to person, place and time. Behavior, mood, and affect are within normal limits 20:09 ECG was reviewed by the Attending Physician. EKG 1921 normal sinus rhythm rate 92. Normal EKG Vital Signs: 08/23 19:16 BP 113 / 67; Pulse 101; Resp 18; Temp 101.4; Pulse Ox 95% on R/A; Weight 79.38 kg; bp Height 5 ft. 11 in. ; Pain 0/10; 19:25 BP 113 / 67; Pulse 101; Resp 18; Temp 101.4; Pulse Ox 95% on R/A; Weight 79.38 kg; bp Height 5 ft. 11 in. ; Pain 0/10; 22:42 BP 98 / 63; Pulse 75; Resp 14; Temp 98.8; Pulse Ox 94% on trach mask; Pain 0/10; bm8 23:19 BP 103 / 69; Pulse 100; Resp 18; Pulse Ox 95% on R/A; Pain 0/10; bm8 19:25 Body Mass Index 24.41 (79.38 kg, 180.34 cm) bp 19:16 Pain Scale: Adult bp 19:25 Pain Scale: Adult bp 22:42 Pain Scale: Adult bm8 23:19 Pain Scale: Adult bm8 [place] Coma Score: 22:42 Eye Response: to voice(3). Motor Response: obeys commands(6). Verbal Response: bm8 oriented(5). Total: 14. MDM: 19:18 Medical Screening Exam initiated sp4 23:06 Differential diagnosis: anxiety, chest wall pain, congestive heart failure esophagitis, sp4 gastritis, gastroesophageal reflux disease (GERD), hiatal hernia. HEART Score: History: Slightly Suspicious (0), ECG: Normal (0), Age: > 45 and < 65 years (1), Risk Factors: 1 or 2 risk factors (1), Troponin: < or = 1 x Normal Limit (0), Total Score = 2. 23:06 ED course: COMPARISON: 08/06/2024 FINDINGS: The lack of intravenous contrast limits the sp4 sensitivity of this exam for evaluation of solid visceral organs, vascular structures, and retroperitoneum. Chest: LOWER NECK/CHEST WALL: Tracheostomy defect in place. Visualized thyroid gland and soft tissues are normal. LUNGS AND AIRWAYS: Luminal collapse along the right and left bronchi and there branches. Tree-in-bud nodular opacities along the central upper lobes bilaterally and to lesser extent right lower lobe, although motion artifact limits evaluation PLEURA: No pleural effusion. No pneumothorax. Hemidiaphragms are normally positioned. MEDIASTINUM AND LYMPH NODES: No mediastinal mass or fluid collection. Normal size mediastinal, hilar, and axillary lymph nodes. THORACIC AORTA: Normal caliber and configuration. PULMONARYARTERIES: Normal caliber. HEART: Unremarkable. Abdomen/Pelvis LIVER: Normal in size and contour. No focal lesion. GALLBLADDER/BILE DUCTS: Status post cholecystectomy. No biliary ductal dilatation. PANCREAS: No mass, ductal dilation, or selene-pancreatic fluid. SPLEEN: Normal size. No focal lesion. ADRENALS: Normal; no mass. KIDNEYS AND URETERS: Normal size and contour. No hydronephrosis. GASTROINTESTINAL TRACT: Stomach is non-dilated. Small bowel has normal course and caliber. No colonic wall thickening or pericolonic inflammatory changes. Distal colonic diverticulosis without evidence of acute diverticulitis. PERITONEUM: No free fluid. LYMPH NODES: No lymphadenopathy. ABDOMINAL AORTA AND OTHER VESSELS: Normal caliber aorta and IVC. URINARYBLADDER: Normal contour. REPRODUCTIVE ORGANS: No pathologic process. MUSCULOSKELETAL: No acute or suspicious osseous abnormality. ADDITIONAL FINDINGS: None IMPRESSION: Bilateral tree-in-bud opacities involving the upper lobes, concerning for an infectious or inflammatory process such as pneumonitis. No acute or significant abnormalities in the abdomen, or pelvis. Incidental findings as above.. 23:12 Data reviewed: vital signs, nurses notes, EMS record, old medical records, lab test sp4 result(s), radiologic studies, CT scan. Consideration of Admission/Observation Escalation of care including admission/observation considered. ED course: Patient stable for discharge home with p.o. Zithromax albuterol and dextromethorphan.. 08/24 20:11 The patient was given aspirin in the Emergency Department. ED course: Patient CAT scan sp4 reveals mild upper lobes pneumonitis, will treat with Zithromax.. 08/23 19:16 Order name: BMP; Complete Time: 20:38 sp 08/23 19:16 Order name: Blood Culture Adult (2) sp4 08/23 19:16 Order name: CBC with Diff; Complete Time: 20:38 sp4 08/23 19:16 Order name: CPK; Complete Time: 20:38 sp4 08/23 19:16 Order name: Hepatic Function; Complete Time: 20:38 sp4 08/23 19:16 Order name: Lipase; Complete Time: 20:38 sp4 08/23 19:16 Order name: Magnesium; Complete Time: 20:38 sp4 08/23 19:16 Order name: NT PRO-BNP; Complete Time: 20:38 sp4 08/23 19:16 Order name: PT-INR; Complete Time: 20:38 sp4 08/23 19:16 Order name: Ptt, Activated; Complete Time: 20:38 sp4 08/23 19:16 Order name: Troponin HS; Complete Time: 20:38 sp4 08/23 19:36 Order name: Lactate w/ 2H reflex if indic.; Complete Time: 20:38 sb4 08/23 19:45 Order name: Chest Abd Pelvis Wo Con; Complete Time: 23:03 EDVA 08/23 19:16 Order name: Call RT; Complete Time: 19:48 sp4 08/23 19:16 Order name: Cardiac monitoring; Complete Time: 19:48 sp4 08/23 19:16 Order name: EKG - Nurse/Tech; Complete Time: 19:46 sp4 08/23 19:16 Order name: IV Saline Lock; Complete Time: 19:46 sp4 08/23 19:16 Order name: Labs collected and sent; Complete Time: 19:29 sp4 08/23 19:16 Order name: O2 Per Protocol; Complete Time: 19:46 sp4 08/23 19:16 Order name: O2 Sat Monitoring; Complete Time: 19:46 4 EC/25 19:21 Rate is 92 beats/min. Rhythm is regular, Normal Sinus Rhythm. QRS [place] is Normal. MA sp4 interval is normal. QRS interval is normal. QT interval is normal. No Q waves. T waves are Normal. No ST changes noted. Clinical impression: No evidence of ischemia. Interpreted by me. Reviewed by me. Administered Medications: 19:40 Drug: Albuterol Inhalation 2.5 mg Inhalation every 20 minutes x3 Route: Inhalation; bm8 19:40 Drug: Ipratropium Inhalation Aerosol 0.5 mg Inhalation once; Every 20 min for a total bm8 of 3 treatments x3 Route: Inhalation; 19:49 Drug: MethylPrednisoLONE IVP 125 mg IVP once Route: IVP; Site: left antecubital; bm8 22:45 Follow up: Response: No adverse reaction bm8 19:49 Drug: Cefepime IVPB 2 grams IVPB at 200 ml/hr once over 30 mins; (mix in NS 100 mL) bm8 Route: IVPB; Rate: 200 ml/hr; Infused Over: 30 mins; Site: left antecubital; 22:45 Follow up: Response: No adverse reaction; IV Status: Completed infusion bm8 19:50 Drug: morphine IVP or IV 6 mg IVP once over 4 mins Route: IVP; Infused Over: 4 mins; bm8 Site: left antecubital; 22:45 Follow up: Response: No adverse reaction bm8 19:50 Drug: Ondansetron IVP 4 mg IVP once; over 2 minutes Route: IVP; Site: left antecubital; bm8 22:44 Follow up: Response: No adverse reaction bm8 19:50 Drug: Droperidol IVP 2.5 mg IVP once Route: IVP; Site: left antecubital; bm8 22:44 Follow up: Response: No adverse reaction bm8 20:00 Drug: Albuterol Inhalation 2.5 mg Inhalation every 20 minutes x3 Route: Inhalation; bm8 20:00 Drug: Ipratropium Inhalation Aerosol 0.5 mg Inhalation once; Every 20 min for a total bm8 of 3 treatments x3 Route: Inhalation; 20:03 Drug: vancoMYCIN IVPB 2 grams IVPB at calculated rate once Route: IVPB; Rate: bm8 calculated rate; Site: left antecubital; 22:45 Follow up: Response: No adverse reaction; IV Status: Completed infusion bm8 20:57 Drug: Albuterol Inhalation 2.5 mg Inhalation every 20 minutes x3 Route: Inhalation; bm8 22:45 Follow up: Response: No adverse reaction bm8 20:57 Drug: Ipratropium Inhalation Aerosol 0.5 mg Inhalation once; Every 20 min for a total bm8 of 3 treatments x3 Route: Inhalation; 22:45 Follow up: Response: No adverse reaction bm8 21:00 Drug: Acetaminophen PO 1000 mg PO once Route: PO; bm8 22:44 Follow up: Response: No adverse reaction bm8 21:00 Drug: Ketorolac IVP 30 mg IVP once Route: IVP; Site: left antecubital; bm8 22:44 Follow up: Response: No adverse reaction bm8 Disposition Summary: 08/23/24 23:15 Discharge Ordered Notes: Location: Home sp4 Problem: new sp4 Symptoms: have improved sp4 Condition: Stable sp4 Diagnosis - Bilateral pneumonia, COPD exacerbation, bacterial tracheitis , noncardiac chest sp4 pain Followup: sp4 - With: Private Physician - When: 7 - 10 days - Reason: Recheck today's complaints Discharge Instructions: - Discharge Summary Sheet sp4 - Community-Acquired Pneumonia, Adult, [id number] sp4 Forms: - Patient Portal Instructions sp4 Prescriptions: - Nebulizer with Adult mask - 0 Dispense One Nebulizer with Adult Mask, use with albuterol as directed; ; sp4 Refills: 0, Product Selection Permitted - dextromethorphan-guaifenesin 20-400 mg Oral tablet - take 1 tablet ORAL route every 4 hours as needed for cough; 60 tablet; Refills: sp4 0, Product Selection Permitted - Albuterol Sulfate 2.5 mg /3 mL (0.083 %) Inhalation Solution for Nebulization - inhale 1 unit NEBULIZATION route every 4 hours As needed Dispense 50 vials , sp4 Use with Nebulizer every 4 hours PRN wheezing; 50 unit; Refills: 0, Product Selection Permitted - Zithromax Z-Will 250 mg Oral Tablet - take 1 tablet ORAL route as directed for 5 days Day 1 - take two (2) tablets sp4 one time. Day 2, 3, 4 , 5 take one (1) tablet once daily.; 6 tablet; Refills: 0, Product Selection Permitted Signatures: Dispatcher [employer] EDMS Turner Nickerson, RN RN bp Clarke Morris MD MD sp4 Macario Green RN RN bm8 Corrections: (The following items were deleted from the chart) 19:17 19:17 BASIC METABOLIC PANEL+C.LAB.BRZ ordered. EDMS EDMS 19:17 19:17 BLOOD CULTURE*+BA.LAB.BRZ ordered. EDMS EDMS 19:17 19:17 CBC+H.LAB.BRZ ordered. EDMS EDMS 19:17 19:17 CREATINE PHOSPHOKINASE+C.LAB.BRZ ordered. EDMS EDMS 19:17 19:17 HEPATIC FUNCTION+C.LAB.BRZ ordered. EDMS EDMS 19:17 19:17 LIPASE+C.LAB.BRZ ordered. EDMS EDMS 19:17 19:17 MAGNESIUM+C.LAB.BRZ ordered. EDMS EDMS 19:17 19:17 PROBNP+C.LAB.BRZ ordered. EDMS EDMS 19:17 19:17 PROTIME (+INR)+COAG.LAB.BRZ ordered. EDMS EDMS 19:17 19:17 PTT, ACTIVATED+COAG.LAB.BRZ ordered. EDMS EDMS 19:17 19:17 Troponin High Sensitivity+C.LAB.BRZ ordered. EDMS EDMS 19:17 19:17 Chest For PE Angio+CT.RAD.BRZ ordered. EDMS EDMS
[2024-08-23 23:47] VITALS: TEMP 98.8
[2024-08-23 23:48] VITALS: BP 103/69; O2SAT 95
--- NOTE | 2024-08-25 12:21 | EKG ---
Test Date: 2024-08-23 Test Time: 19:21:40 Stacker Driver: GISELA MEASUREMENT RESULTS: Intervals: Rate: 92 MD: 142 QRSD: 72 QT: 344 QTc: 425 [place]: P: 78 MD: 142 QRS: 52 T: 76 INTERPRETIVE STATEMENTS: Normal sinus rhythm Nonspecific ST abnormality Abnormal ECG Compared to ECG 07/28/2024 19:12:41 ST (T wave) deviation now present Electronically Signed On 08-25-24 12:18:12 CDT by Corey Michele
== END 2024-08-23 23:38 | disposition home or self-care (01) ==
LOC: ER 19:12
DX: J18.9 Pneumonia, unspecified organism (principal); J44.1 Chronic obstructive pulmonary disease with (acute) exacerbation; J04.10 Acute tracheitis without obstruction; B96.89 Other specified bacterial agents as the cause of diseases classified elsewhere; Z72.0 Tobacco use
CPT/HCPCS: 96365; 93005; 87040 ×2; 85025; 80048; 36415; 83735; 82550; 85610; 80076; 83605; 85730; 84484; 83690; 83880; 71250; 74176; 94640; 96375; 99285; 96366; J7613; J7644; J3370; J0692; J2270; J2919; J2405; J1790; J7040

== ENCOUNTER 2024-12-18 01:13 | Inpatient (IN) | payer OTHER ==
[2024-12-18] MEDS ORDERED: NA CHLORIDE 0.9% 1,000 ML ONE ×3 (01:43→05:37)
[2024-12-18] MEDS ORDERED: ONDANSETRON 4 MG/2 ML VIAL ONE (01:56)
[2024-12-18] MEDS ORDERED: MORPHINE 4 MG/ML SYR ONE ×2 (01:57→03:26)
[2024-12-18 02:01] LABS: Absolute Lymphocytes (CBC) 1.8 K/uL (0.7-4.9); Hematocrit 44.9 % (39.6-49.0); Hemoglobin 15.2 g/dL (13.6-17.9); MCH 29.3 pg (27.0-35.0); MCHC 34.0 g/dL (32.0-36.0); MCV 86.2 fL (80-100); MPV 7.7 fL (7.6-11.3); Nucleated RBC Absolute Count 0.0 (0-0); Nucleated Red Blood Cells % 0.1 % (0-0); RBC Red Blood Cell Count 5.20 M/uL (4.33-5.43); White Blood Count 10.80 thou/uL (4.3-10.9)
[2024-12-18 02:09] LABS: PT Prothrombin Time 12.1 SECONDS (10-13.0); Protime INR 1.07
[2024-12-18 02:25] LABS: ALT/SGPT 29 U/L (16-61); AST/SGOT 17 U/L (15-37); Albumin 3.8 g/dL (3.4-5.0); Albumin/Globulin Ratio 1.1 (1.1-1.8); Alkaline Phosphatase 105 U/L (45-117); Anion Gap 9.4 mEq/L (5.0-15.0); BUN Blood Urea Nitrogen 6 mg/dL (7-18); Globulin 3.5 g/dL (2.3-3.5); Glucose Level 127 mg/dL (74-106); Magnesium 2.0 mg/dL (1.6-2.4); NT PRO-BNP 53 pg/mL (<125); Potassium 3.4 mEq/L (3.5-5.1); Troponin High Sensitivity 7.9 pg/mL (<58.9)
[2024-12-18 02:27] LABS: Bilirubin Indirect, Calculated 0.3 mg/dL (0.2-0.8)
--- NOTE | 2024-12-18 02:56 | EDPHYS ---
Physician Documentation [facility] Name: Akin Pugh Age: 54 yrs Sex: Male : 1970 Arrival Date: 12/18/2024 Time: 01:13 Bed 6 Private MD: ALEJANDRA Physician Ren Bruner HPI: 12/18 02:09 This 54 yrs old Male presents to ER via Unassigned with complaints of kishan Breathing Difficulty. 02:09 The patient has shortness of breath at rest. Onset: The symptoms/episode began/occurred kishan 1 day(s) ago. Duration: The symptoms are intermittent, with no pattern. The patient's shortness of breath is aggravated by coughing, exertion, light activity, is alleviated by nebulizer treatment, rest, sitting up, application of supplemental oxygen. Associated signs and symptoms: Pertinent positives: non-productive cough. Severity of symptoms: At their worst the symptoms were moderate in the emergency department the symptoms are unchanged. The patient has not experienced similar symptoms in the past. Historical: - Allergies: 02:34 Ampicillin; tb4 02:34 Iodinated Contrast Media - IV Dye; tb4 02:34 Iodine; tb4 02:34 Levaquin; tb4 - PMHx: 02:34 Asthma; Congestive heart failure; Pancreatitis; THROAT CA; COPD; tb4 - PSHx: 02:34 Appendectomy; Laryngectomy; tracheostomy; Cholecystectomy; tb4 - Immunization history:: Adult Immunizations up to date. - Infectious Disease History:: Denies. - Family history:: not pertinent. - Social history:: Smoking status: Patient reports the use of cigarette tobacco products, smokes one-half pack cigarettes per day, Patient/guardian denies using alcohol, street drugs, IV drugs. ROS: 02:11 Constitutional: Negative for fever, chills, and weight loss, Eyes: Negative for injury, kishan pain, redness, and discharge, ENT: Negative for injury, pain, and discharge, Neck: Negative for injury, pain, and swelling, Cardiovascular: Negative for chest pain, palpitations, and edema, Abdomen/GI: Negative for abdominal pain, nausea, vomiting, diarrhea, and constipation, Back: Negative for injury and pain, : Negative for injury, bleeding, discharge, and swelling, MS/Extremity: Negative for injury and deformity, Skin: Negative for injury, rash, and discoloration, Neuro: Negative for headache, weakness, numbness, tingling, and seizure, Psych: Negative for depression, anxiety, suicide ideation, homicidal ideation, and hallucinations, Allergy/Immunology: Negative for hives, rash, and allergies, Endocrine: Negative for neck swelling, polydipsia, polyuria, polyphagia, and marked weight changes, Hematologic/Lymphatic: Negative for swollen nodes, abnormal bleeding, and unusual bruising, 02:11 Respiratory: Positive for cough, shortness of breath, wheezing, expiratory, Exam: 02:11 Constitutional: This is a well developed, well nourished patient who is awake, alert, kishan and in no acute distress. Head/Face: Normocephalic, atraumatic. Eyes: Pupils equal round and reactive to light, extra-ocular motions intact. Lids and lashes normal. Conjunctiva and sclera are non-icteric and not injected. Cornea within normal limits. Periorbital areas with no swelling, redness, or edema. ENT: Nares patent. No nasal discharge, no septal abnormalities noted. Tympanic membranes are normal and external auditory canals are clear. Oropharynx with no redness, swelling, or masses, exudates, or evidence of obstruction, uvula midline. Mucous membranes moist. Neck: Trachea midline, no thyromegaly or masses palpated, and no cervical lymphadenopathy. Supple, full range of motion without nuchal rigidity, or vertebral point tenderness. No Meningismus. Chest/axilla: Normal chest wall appearance and motion. Nontender with no deformity. No lesions are appreciated. Cardiovascular: Regular rate and rhythm with a normal S1 and S2. No gallops, murmurs, or rubs. Normal PMI, no JVD. No pulse deficits. Abdomen/GI: Soft, non-tender, with normal bowel sounds. No distension or tympany. No guarding or rebound. No evidence of tenderness throughout. Back: No spinal tenderness. No costovertebral tenderness. Full range of motion. Male : Normal genitalia with no discharge or lesions. Skin: Warm, dry with normal turgor. Normal color with no rashes, no lesions, and no evidence of cellulitis. MS/ Extremity: Pulses equal, no cyanosis. Neurovascular intact. Full, normal range of motion., bilateral aka Neuro: Awake and alert, GCS 15, oriented to person, place, time, and situation. Cranial nerves II-XII grossly intact. Motor strength 5/5 in all extremities. Sensory grossly intact. Cerebellar exam normal. Normal gait. Psych: Awake, alert, with orientation to person, place and time. Behavior, mood, and affect are within normal limits. 02:11 Respiratory: moderate respiratory distress is noted, Respirations: labored breathing, is not present, Breath sounds: bronchial sounds, that are mild, are scattered, decreased breath sounds, are not appreciated, rhonchi, are not appreciated, stridor, is not appreciated, + upper airway congestion. 02:56 ECG was reviewed by the Attending Physician. [facility] Vital Signs: 02:34 BP 132 / 80; Pulse 94; Resp 18; Pulse Ox 96% on R/A; Weight 79.38 kg; Height 5 ft. 11 tb4 in. ; Pain 8/10; 03:30 BP 160 / 78; Pulse 83; Resp 18; Pulse Ox 99% on R/A; Pain 6/10; tb4 04:30 BP 160 / 76; Pulse 68; Resp 18; Pulse Ox 97% on R/A; tb4 05:32 BP 141 / 80; Pulse 76; Resp 16; Pulse Ox 99% on R/A; tb4 02:34 Body Mass Index 24.41 (79.38 kg, 180.34 cm) tb4 02:34 Pain Scale: Adult tb4 03:30 Pain Scale: Adult tb4 MDM: 01:28 Medical Screening Exam initiated [facility] 02:14 Differential diagnosis: Anemia Anxiety Reaction Bronchitis abnormal EKG, anxiety, kishan coronary artery disease chest wall pain, Cholelithiasis costochondritis, esophagitis, gastritis, pancreatitis, pleurisy, pneumonia, stable angina, pneumonia, Pulmonary Embolism reactive airway disease, Unstable Angina. Antibiotic administration: Not indicated. HEART Score: ECG: Non specific repolarization disturbance / LBTB / PM (1), Age: > 45 and < 65 years (1), Risk Factors: > or = 3 Risk factors for atherosclerotic disease (2), [Hypercholesterolemia] [Hypertension] [Active Smoker] [+ Family HX] Troponin: < or = 1 x Normal Limit (0). The patient was given aspirin in the Emergency Department. Immunization status: Influenza vaccine: within last 5 years. Data reviewed: vital signs, nurses notes, lab test result(s), EKG, radiologic studies, plain films. Consideration of Admission/Observation Patient was admitted/placed on observation. Escalation of care including admission/observation considered. I considered the following discharge prescriptions or medication management in the emergency department Medications were administered in the Emergency Department. See MAR. Test considered but Not performed: Ultrasound no 2 d echo. 12/18 01:31 Order name: Basic Metabolic Panel [facility] 12/18 01:31 Order name: CBC with Diff; Complete Time: 02:46 [facility] 12/18 01:31 Order name: LFT's [facility] 12/18 01:31 Order name: Magnesium [facility] 12/18 01:31 Order name: NT PRO-BNP [facility] 12/18 01:31 Order name: PT-INR; Complete Time: 02:46 [facility] 12/18 01:31 Order name: Troponin HS [facility] 12/18 01:31 Order name: Blood Culture Adult (2) [facility] 12/18 01:31 Order name: UA Rfx Abdoulaye Cult if indicated [facility] 12/18 01:31 Order name: COVID-19 Ag + Flu A+B Ag [facility] 12/18 01:31 Order name: Lactate w/ 2H reflex if indic.; Complete Time: 02:51 [facility] 12/18 02:53 Order name: Ghost Lactate-NO COLLECT Timer [facility] 12/18 03:03 Order name: Lipase [facility] 12/18 03:55 Order name: CBC with Automated Diff [facility] 12/18 03:55 Order name: CBC with Automated Diff [facility] 12/18 03:55 Order name: Comprehensive Metabolic Panel [facility] 12/18 03:55 Order name: Comprehensive Metabolic Panel [facility] 12/18 03:55 Order name: Troponin High Sensitivity [facility] 12/18 03:55 Order name: Troponin High Sensitivity [facility] 12/18 03:55 Order name: Troponin High Sensitivity [facility] 12/18 03:55 Order name: Troponin High Sensitivity [facility] 12/18 05:45 Order name: Lactate Sepsis 2 HR Follow-up [facility] 12/18 01:31 Order name: XRAY Chest (1 view) [facility] 12/18 02:54 Order name: CT Chest Abdomen Pelvis W/O Contrast [facility] 12/18 01:31 Order name: EKG; Complete Time: 01:32 [facility] 12/18 01:31 Order name: Cardiac monitoring; Complete Time: 02:05 [facility] 12/18 01:31 Order name: EKG - Nurse/Tech; Complete Time: 04:39 [facility] 12/18 01:31 Order name: IV Saline Lock; Complete Time: 02:05 [facility] 12/18 01:31 Order name: Labs collected and sent; Complete Time: 02: [facility] 12/18 01:31 Order name: O2 Per Protocol; Complete Time: 02: [facility] 12/18 01:31 Order name: O2 Sat Monitoring; Complete Time: 02:05 [facility] EC:56 Rate is 71 beats/min. Rhythm is regular. QRS Uriah is Normal. OK interval is normal. QRS kishan interval is normal. QT interval is normal. No Q waves. T waves are Normal. No ST changes noted. Clinical impression: Normal ECG and No evidence of ischemia. Interpreted by me. Reviewed by me. Administered Medications: 01:58 Drug: Ondansetron IVP 4 mg IVP once; over 2 minutes Route: IVP; Site: right forearm; tb4 01:59 Drug: NS 0.9% IV 1000 ml IV at 100 ml/hr once Route: IV; Rate: 100 ml/hr; Site: right tb4 forearm; 04:03 Follow up: Response: No adverse reaction; IV Status: Completed infusion tb4 01:59 Drug: morphine IVP or IV 4 mg IVP once over 4 mins Route: IVP; Infused Over: 4 mins; tb4 Site: right forearm; 03:17 Drug: Promethazine IM 25 mg IM once; in 100 cc ns over 10 min {Note: mixed with 100 ml tb4 0.9 normal saline bolus .} Route: IM; Site: Other; 04:38 Follow up: Response: No adverse reaction; Nausea is decreased tb4 03:18 Drug: Levalbuterol Inhalation 2.5 mg Inhalation once; laryngeal mask Route: Inhalation; tb4 03:18 Drug: Ipratropium Inhalation Aerosol 0.5 mg Inhalation once Route: Inhalation; tb4 03:23 Drug: Famotidine IVP 20 mg IVP once; dilute with 10 mL 0.9% NaCl; give over 2 minutes tb4 Route: IVP; Site: left forearm; 03:29 Drug: morphine IVP or IV 4 mg IVP once over 4 mins Route: IVP; Infused Over: 4 mins; tb4 Site: left forearm; 04:37 Follow up: Response: No adverse reaction; Pain is decreased; RASS: Alert and Calm (0) tb4 03:55 Drug: Rocephin IV 1 grams IV at per protocol once; Given slow IV push per pharmacy tb4 instructions Route: IV; Rate: per protocol; Site: right forearm; 04:38 Follow up: Response: No adverse reaction; IV Status: Completed infusion tb4 04:03 Drug: NS 0.9% IV (30 ml/kg) 30 ml/kg IV at bolus once; Sepsis Protocol; to be given as tb4 a bolus over 90 minutes Route: IV; Rate: bolus; Site: right forearm; Disposition Summary: 12/18/24 02:56 Hospitalization Ordered Notes: Hospitalization Status: Observation kishan Provider: Jasbir Saini cha Location: Telemetry/MedSurg (observation) kishan Condition: Stable kishan Problem: new kishan Symptoms: have improved kishan Bed/Room Type: Standard kishan Room Assignment: 415(12/18/24 06:18) eb Diagnosis - Chest pain, unspecified kishan - Tobacco abuse counseling kishan - Tobacco use kishan - Nausea with vomiting, unspecified kishan Forms: - Medication Reconciliation Form kishan - SBAR form kishan - Leadership Thank You Letter kishan Signatures: Dispatcher [employer] EDMS Ren Bruner MD MD cha Page, Corey, PA-C PA-C cp Botello, Elizabeth eb Brown, Terri, RN RN tb4 Corrections: (The following items were deleted from the chart) 01:32 01:32 BASIC METABOLIC PANEL+C.LAB.BRZ ordered. EDMS EDMS : 01:32 CBC+H.LAB.BRZ ordered. EDMS EDMS :32 01:32 HEPATIC FUNCTION+C.LAB.BRZ ordered. EDMS EDMS 01:32 MAGNESIUM+C.LAB.BRZ ordered. EDMS EDMS : 01:32 PROBNP+C.LAB.BRZ ordered. EDMS EDMS :32 01:32 PROTIME (+INR)+COAG.LAB.BRZ ordered. EDMS EDMS : 01:32 Troponin High Sensitivity+C.LAB.BRZ ordered. EDMS EDMS : 01:32 BLOOD CULTURE*+BA.LAB.BRZ ordered. EDMS EDMS : 01:32 UA Rfx Abdoulaye Cult if indicated+U.LAB.BRZ ordered. EDMS EDMS 01:32 COVID-19 Ag + Flu A+B Ag+I.LAB.BRZ ordered. EDMS EDMS 01:32 01:32 LACTATE+C.LAB.BRZ ordered. EDMS EDMS 03:01 02:54 LIPASE+C.LAB.BRZ ordered. EDMS EDMS 06:18 02:56 kishan eb
--- NOTE | 2024-12-18 02:56 | ER ---
Nurse's Notes [facility] Name: Akin Pugh Age: 54 yrs Sex: Male : 1970 Arrival Date: 12/18/2024 Time: 01:13 Bed 6 Private MD: Diagnosis: Chest pain, unspecified;Tobacco abuse counseling;Tobacco use;Nausea with vomiting, unspecified Presentation: 12/18 01:42 Chief complaint: Patient states: he had shortness of breath x1 day and nausea, vomiting tb4 x2 hours. Coronavirus screen: At this time, the client does not indicate any symptoms associated with coronavirus-19. Ebola Screen: No symptoms or risks identified at this time. Initial Sepsis Screen: Does the patient meet any 2 criteria? No. Patient's initial sepsis screen is negative. Does the patient have a suspected source of infection? No. Patient's initial sepsis screen is negative. Onset of symptoms was December 18, 2024. 01:42 Method Of Arrival: Ambulatory tb4 04:23 Acuity: PAO 3 tb4 04:36 Risk Assessment: Do you want to hurt yourself or someone else? Patient reports no tb4 desire to harm self or others. Triage Assessment: 01:42 General: Appears uncomfortable, Behavior is cooperative. Pain: Complains of pain in tb4 chest Pain does not radiate. Pain currently is 8 out of 10 on a pain scale. Quality of pain is described as sharp, Pain began suddenly, Is continuous. Neuro: Level of Consciousness is awake, alert, obeys commands, Oriented to person, place, time, situation, Moves all extremities. Full function Gait is steady, Speech is normal, Facial symmetry appears normal. Cardiovascular: Reports chest pain, nausea, shortness of breath, vomiting. GI: Abdomen is flat, Bowel sounds present X 4 quads. Reports nausea, vomiting. : No signs and/or symptoms were reported regarding the genitourinary system. Derm: No signs and/or symptoms reported regarding the dermatologic system. Musculoskeletal: No signs and/or symptoms reported regarding the musculoskeletal system. Circulation, motion, and sensation intact. Range of motion: intact in all extremities. 04:37 Respiratory: the patient has mild shortness of breath. tb4 Historical: - Allergies: 02:34 Ampicillin; tb4 02:34 Iodinated Contrast Media - IV Dye; tb4 02:34 Iodine; tb4 02:34 Levaquin; tb4 - PMHx: 02:34 Asthma; Congestive heart failure; Pancreatitis; THROAT CA; COPD; tb4 - PSHx: 02:34 Appendectomy; Laryngectomy; tracheostomy; Cholecystectomy; tb4 - Immunization history:: Adult Immunizations up to date. - Infectious Disease History:: Denies. - Family history:: not pertinent. - Social history:: Smoking status: Patient reports the use of cigarette tobacco products, smokes one-half pack cigarettes per day, Patient/guardian denies using alcohol, street drugs, IV drugs. Screenin:30 [facility] ED Fall Risk Assessment (Adult) History of falling in the last 3 months, tb4 including since admission No falls in past 3 months (0 pts) Confusion or Disorientation No (0 pts) Intoxicated or Sedated No (0 pts) Impaired Gait No (0 pts) Mobility Assist Device Used No (0 pt) Altered Elimination No (0 pt) Score/Fall Risk Level 0 - 2 = Low Risk Maintained a safe environment. Abuse screen: Denies threats or abuse. Denies injuries from another. Nutritional screening: No deficits noted. Tuberculosis screening: No symptoms or risk factors identified. Assessment: 04:20 General: Appears uncomfortable, Behavior is calm, cooperative. Pain: Complains of pain tb4 in chest Pain does not radiate. Pain currently is 6 out of 10 on a pain scale. Quality of pain is described as pressure, sharp, Pain began suddenly, Is continuous. Neuro: Level of Consciousness is awake, alert, obeys commands, Oriented to person, place, time, situation, Moves all extremities. Full function Gait is steady, Speech is normal, Facial symmetry appears normal. Cardiovascular: Rhythm is sinus rhythm. Respiratory: Airway. GI: Reports nausea, vomiting. : No signs and/or symptoms were reported regarding the genitourinary system. EENT: No signs and/or symptoms were reported regarding the EENT system. Derm: No signs and/or symptoms reported regarding the dermatologic system. Skin is intact, is healthy with good turgor, Skin is dry, Skin is normal, Skin temperature is warm. Musculoskeletal: Circulation, motion, and sensation intact. Range of motion: intact in all extremities. 05:47 Respiratory: Reports shortness of breath at rest Respiratory effort is even, unlabored, tb4 Patient breath from his tracheostomy stoma Onset: The symptoms/episode began/occurred gradually. 05:54 Respiratory: Breath sounds are coarse bilaterally. tb4 05:55 Cardiovascular: Clubbing of nail beds is present Patient's skin is warm and dry. tb4 Vital Signs: 02:34 BP 132 / 80; Pulse 94; Resp 18; Pulse Ox 96% on R/A; Weight 79.38 kg; Height 5 ft. 11 tb4 in. ; Pain 8/10; 03:30 BP 160 / 78; Pulse 83; Resp 18; Pulse Ox 99% on R/A; Pain 6/10; tb4 04:30 BP 160 / 76; Pulse 68; Resp 18; Pulse Ox 97% on R/A; tb4 05:32 BP 141 / 80; Pulse 76; Resp 16; Pulse Ox 99% on R/A; tb4 02:34 Body Mass Index 24.41 (79.38 kg, 180.34 cm) tb4 02:34 Pain Scale: Adult tb4 03:30 Pain Scale: Adult tb4 ED Course: 01:14 Patient arrived in ED. mr 01:28 Ren Bruner MD is Attending Physician. kishan 01:42 Arm band placed on right wrist. tb4 01:50 Inserted saline lock: 20 gauge in right forearm, using aseptic technique. Blood tb4 collected. Flushed with 10 mL NS. 02:06 Inserted saline lock: 20 gauge in left forearm, using aseptic technique. Blood ja5 collected. Flushed with 10 mL NS. 02:29 XRAY Chest (1 view) In Process Unspecified. EDMS 02:54 Jasbir Saini MD is Hospitalizing Provider. kishan 02:56 Notified ED physician of a critical lab result(s). LACTIC 3.0 PER JOURNALISM INSTRUCTOR Notified ja5 primary nurse of CRITICAL VALUE LACTIC= 3.0 PER JOURNALISM INSTRUCTOR . PRIMARY RN VERBALIZED UNDERSTANDING. 03:30 No provider procedures requiring assistance completed. Initial lab(s) drawn, by ED tb4 staff, sent to lab. First set of blood cultures drawn by ED staff, Second set of blood cultures drawn by ED staff, Urine collected: clean catch specimen, clear, EKG done, by ED staff, reviewed by Ren Bruner MD COVID swab sent to lab. X-ray(s) taken. CT Scan. 03:30 Patient has correct armband on for positive identification. Bed in low position. Call tb4 light in reach. Side rails up X 1. Client placed on continuous cardiac and pulse oximetry monitoring. NIBP monitoring applied. Door closed. Lights dimmed. Warm blanket given. 03:52 CT Chest Abdomen Pelvis W/O Contrast In Process Unspecified. EDMS 04:23 Triage completed. tb4 05:13 Troponin High Sensitivity Sent. ja5 07:34 Provided Education on: call light use . af3 07:35 Patient admitted, IV remains in place. af3 Administered Medications: 01:58 Drug: Ondansetron IVP 4 mg IVP once; over 2 minutes Route: IVP; Site: right forearm; tb4 01:59 Drug: NS 0.9% IV 1000 ml IV at 100 ml/hr once Route: IV; Rate: 100 ml/hr; Site: right tb4 forearm; 04:03 Follow up: Response: No adverse reaction; IV Status: Completed infusion tb4 01:59 Drug: morphine IVP or IV 4 mg IVP once over 4 mins Route: IVP; Infused Over: 4 mins; tb4 Site: right forearm; 03:17 Drug: Promethazine IM 25 mg IM once; in 100 cc ns over 10 min {Note: mixed with 100 ml tb4 0.9 normal saline bolus .} Route: IM; Site: Other; 04:38 Follow up: Response: No adverse reaction; Nausea is decreased tb4 03:18 Drug: Levalbuterol Inhalation 2.5 mg Inhalation once; laryngeal mask Route: Inhalation; tb4 03:18 Drug: Ipratropium Inhalation Aerosol 0.5 mg Inhalation once Route: Inhalation; tb4 03:23 Drug: Famotidine IVP 20 mg IVP once; dilute with 10 mL 0.9% NaCl; give over 2 minutes tb4 Route: IVP; Site: left forearm; 03:29 Drug: morphine IVP or IV 4 mg IVP once over 4 mins Route: IVP; Infused Over: 4 mins; tb4 Site: left forearm; 04:37 Follow up: Response: No adverse reaction; Pain is decreased; RASS: Alert and Calm (0) tb4 03:55 Drug: Rocephin IV 1 grams IV at per protocol once; Given slow IV push per pharmacy tb4 instructions Route: IV; Rate: per protocol; Site: right forearm; 04:38 Follow up: Response: No adverse reaction; IV Status: Completed infusion tb4 04:03 Drug: NS 0.9% IV (30 ml/kg) 30 ml/kg IV at bolus once; Sepsis Protocol; to be given as tb4 a bolus over 90 minutes Route: IV; Rate: bolus; Site: right forearm; Medication: 02:34 VIS not applicable for this client. tb4 Outcome: 02:56 Decision to Hospitalize by Provider. kishan 07:37 Admitted to Tele accompanied by tech, via wheelchair, room 415, with chart, af3 07:37 Condition: stable 07:37 Instructed on the need for admit, Demonstrated understanding of instructions, 07:39 Patient left the ED. af3 Signatures: Dispatcher [employer] EDMS Ren Bruner MD MD cha Rivera, Mary, [facility] Reg mr JacquesXiomy cp4 Rosa Jimenez, RN RN af3 Marisa Uribe RN RN tb4 Katty Stewart Corrections: (The following items were deleted from the chart) 05:48 04:37 Respiratory: tb4 cp4 05:48 05:45 Respiratory: cp4 cp4
[2024-12-18] MEDS ORDERED: CEFTRIAXONE 1000 MG/VIAL ONE (02:59)
[2024-12-18] MEDS ORDERED: IPRATROPIUM BROM 0.5MG/2.5ML ONE (02:59)
[2024-12-18] MEDS ORDERED: LEVALBUTEROL 1.25 MG/3 ML NEB ONE (03:00)
[2024-12-18] MEDS ORDERED: FAMOTIDINE 20 MG/2 ML VIAL IV ONE (03:00)
[2024-12-18] MEDS ORDERED: PROMETHAZINE INJ 25 MG/ML AMP ONE (03:00)
[2024-12-18 03:06] LABS: Lipase 47 U/L (13-75)
--- NOTE | 2024-12-18 03:07 | P.HP ---
Certification for Inpatient Patient admitted to: Inpatient With expected LOS: >2 Midnights Practitioner: I am a practitioner with admitting privileges, knowledge of patient current condition, hospital course, and medical plan of care. Services: Services provided to patient in accordance with Admission requirements found in Title 42 Section 412.3 of the Code of Federal Regulations Patient History Date of Service: 12/18/24 Reason for admission: Chest Pain History of Present Illness: 54 yrs old Male with past medical history of asthma, CHF, pancreatitis, throat cancer status post tracheostomy and laryngectomy and COPD presents to ER with shortness of breath and chest pain. Symptoms started a day ago and has been progressively getting worse. Chest pain is retrosternal with no radiation no fever or chills.The patient's shortness of breath is aggravated by coughing, exertion, light activity, is alleviated by nebulizer treatment, rest, sitting up, application of supplemental oxygen. Associated with nonproductive cough. History is limited because of the non verbal. At the time of interview chest pain is resolved. Patient was assessed in the ER and was admitted for further management. Allergies levofloxacin [From Levaquin] Allergy (Severe, Verified 03/30/24 05:25) Itching/Hives/Rash ampicillin Allergy (Verified 03/30/24 05:25) Itching/Hives/Rash iodine Allergy (Verified 03/30/24 05:25) Hives/Rash Home medications list reviewed: Yes Home Medications: Atorvastatin Calcium [Lipitor] 80 mg PO DAILY 08/30/24 Escitalopram [Lexapro*] 20 mg PO DAILY 08/30/24 Fluticasone Propion/Salmeterol [Fluticasone-Salmeterol 100-50] 1 spray IH BID 08/30/24 Gabapentin 800 mg PO TIDWM 08/30/24 Levothyroxine [Synthroid*] 100 mcg PO [id number] 08/30/24 Lipase/Protease/Amylase [Chucho Falcon 12,000 Unit Capsule] 1 cap PO TIDWM 08/30/24 Pantoprazole [Protonix Tab*] 40 mg PO BID 08/30/24 Azithromycin Tab [Zithromax*] 250 mg PO DAILY 4 Days #4 tab 09/01/24 Doxycycline Hyclate 100 mg PO BID 7 Days #14 tab 09/01/24 - Past Medical/Surgical History Diabetic: No Past Medical History: Reviewed- Non-Contributory -: Asthma -: Depression -: Throat cancer status post complete laryngectomy/reconstruction 06/2018 -: Recurrent postop infection -: Chronic pain -: Former tobacco use -: Surgical hypothyroidism -: neuropathy -: Pancreatitis/duodenitis Past Surgical History: Reviewed- Non-Contributory -: Tracheostomy -: Appendectomy -: Complete laryngectomy with reconstruction -: knee surgery bilateral knees -: Thyroidectomy Psychosocial/ Personal History: Patient is . He has 3 children. - Family History Father -: Heart disease, Diabetes Notes: agent orange: immobile Mother -: Cancer Notes: breast ca - Social History Smoking Status: Never smoker Alcohol use: No CD- Drugs: No Caffeine use: Yes Review of Systems 10-point ROS is otherwise unremarkable Physical Examination - Vital Signs Temperature: 97.2 F Blood Pressure: 136/78 Pulse: 82 Respirations: 18 Pulse Ox (%): 94 - Physical Exam General: Alert, Oriented x3, Mild distress HEENT: Atraumatic, Normocephalic Neck: Supple Respiratory: Normal air movement, Expiratory wheezes Cardiovascular: Regular rate/rhythm, Normal S1 S2 Capillary refill: <2 Seconds Gastrointestinal: Soft and benign, W/out hepatosplenomegaly Musculoskeletal: No clubbing Integumentary: No rashes Neurological: Other (Alert awake nonfocal) Lymphatics: No axilla or inguinal lymphadenopathy - Studies Laboratory Data (last 24 hrs) 12/18/24 12/18/24 12/18/24 02:54 01:46 01:46 WBC 10.80 Hgb 15.2 Hct 44.9 Plt Count 299 PT 12.1 INR 1.07 Sodium Potassium BUN Creatinine Glucose Magnesium Total Bilirubin AST ALT Alkaline Phosphatase Lipase Cancelled 12/18/24 01:46 WBC Hgb Hct Plt Count PT INR Sodium 138 Potassium 3.4 L BUN 6 L Creatinine 0.97 Glucose 127 H Magnesium 2.0 Total Bilirubin 0.5 AST 17 ALT 29 Alkaline Phosphatase 105 Lipase 47 Assessment and Plan - Plan Chest pain rule out ACS Will trend cardiac enzymes Will monitor telemetry Started on aspirin and statin EKG did not show any acute changes suggestive of ischemia Will get an echocardiogram Cardiology consult COPD exacerbation Monitor closely on telemetry Started on bronchodilators Oxygen supplementation Steroids added Chest x-ray findings noted Lactic acidosis Will trend lactic acid level Will get a CT abdomen pelvis and CT chest Started on antibiotic Will obtain cultures Change antibiotic as per sensitivity Throat cancer status post laryngectomy Anxiety Continue home medications and titrate as needed GI/DVT prophylaxis Advanced directive full code Discharge Plan: Home Plan to discharge in: 48 Hours - Advance Directives Does patient have a Living Will: No Does patient have a Durable POA for Healthcare: No - Code Status/Comfort Care Code Status: Full Code Time Spent Managing Pts Care (In Minutes): 48
[2024-12-18 03:33] LABS: Influenza A Ag Negative; Influenza B Ag Negative; SARS-CoV-2 Antigen Rapid Res Negative (Negative)
[2024-12-18 03:44] LABS: Urine Microscopic Reflex YN NO UMIC
[2024-12-18] MEDS ORDERED: ACETAMINOPHEN 325 MG TABLET PO PRN (03:49)
--- NOTE | 2024-12-18 05:18 | RAD REPORT ---
EXAMINATION: CT CHEST ABDOMEN PELVIS WITHOUT IV CONTRAST INDICATION: 54 years old Male 1970 Cough, abdominal distention and pain. COMPARISON(S): XR Chest 12/18/2024 12:09:01 AM, CT Chest 08/29/2024 (Only report available), CT Chest Abdomen Pelvis 08/24/2024 (Only report available). TECHNIQUE: CT chest, abdomen and pelvis. One or more of the following dose-optimizing techniques was utilized for this exam: automated exposure control, adjustment of the mA and/or kV according to patient size, and/or use of iterative reconstruction technique. CONTRAST: As stated in examination. FINDINGS: CHEST: Tracheotomy is seen at the thoracic inlet with neck dissection postsurgical change. Lungs, Tracheobronchial Structures, Pleura: Hyperexpanded. No focal lung disease is present. The airw ays are patent. Bones: Unremarkable. Superior Thoracic Aperture, Axilla, Chest Wall Soft Tissues: Unremarkable. Mediastinal/Hilar Structures and Lymph Nodes: Unremarkable. Cardiomediastinal Structures: Chronic calcific atherosclerotic disease. ABDOMEN/PELVIS: Liver: No acute finding. Gallbladder: Cholecystectomy. Biliary: No biliary ductal dilation. Pancreas: No pancreatitis. Spleen: Normal. Adrenal glands: No acute finding. Kidneys and ureters: No acute finding. Bladder: No acute finding. Reproductive organs: Normal for age. Stomach/bowel: No obstruction or focal inflammation. Diverticulosis sigmoid colon without features of diverticulitis. Appendix: No appendicitis. Lymph nodes: No lymphadenopathy. Peritoneum: No intraperitoneal free air or significant fluid. Vessels: Normal for technique. MUSCULOSKELETAL: Thoracic and Abdominal wall: No hernia or soft tissue mass. Bones: No acute osseous abnormality. IMPRESSION: No acute cardiopulmonary process. Hyperexpanded lungs may indicate COPD. Tracheotomy. Cholecystectomy . Diverticulosis. Electronically signed by: Winston Alexander MD 12/18/2024 04:57 AM CDT Due to temporary technical issues with the PACS/[employer] reporting system, reports are being maryellen d by the in-house radiologist without review as a courtesy to ensure prompt reporting the interpreting radiologist is fully responsible for the content of the report. Transcribed Date/Time: 12/18/2024 5:18 AM
--- NOTE | 2024-12-18 05:34 | RAD REPORT ---
EXAM: XR Chest, 1 View CLINICAL HISTORY: COUGH TECHNIQUE: Frontal view of the chest. COMPARISON: No relevant prior studies available. FINDINGS: Lungs: Unremarkable. No consolidation. Pleural space: Unremarkable. No pneumothorax. Heart: Unremarkable. No cardiomegaly. Mediastinum: Unremarkable. Normal mediastinal contour. Bones/joints: Unremarkable. No acute fracture. Vasculature: Thoracic aortic atherosclerosis. IMPRESSION: No acute disease. Electronically signed by: Laxmi Batista MD 12/18/2024 03:24 AM CDT Due to temporary technical issues with the PACS/[employer] reporting system, reports are being maryellen d by the in-house radiologist without review as a courtesy to ensure prompt reporting the interpreting radiologist is fully responsible for the content of the report. Transcribed Date/Time: 12/18/2024 5:34 AM
[2024-12-18] MEDS: ALBUTEROL 2.5 MG/3 ML NEB SOL NEB SCH (07:49)
[2024-12-18 08:12] VITALS: BMI 24.4
[2024-12-18] MEDS: ENOXAPARIN 40 MG/0.4 ML SQ SCH (09:06)
[2024-12-18] MEDS: AZITHROMYCIN IV 500 MG in NA CHLORIDE 0.9% 250 ML IVPB SCH (09:07)
[2024-12-18] MEDS: ASPIRIN EC 81 MG TAB PO SCH (09:07)
[2024-12-18] MEDS: METHYLPREDNISOLONE 40 MG INJ IV SCH (09:08)
[2024-12-18] MEDS: HYDROCODONE/APAP 5/325 MG TAB PO PRN (10:40)
--- NOTE | 2024-12-18 13:46 | P.CNS ---
Date of Consult: 12/18/24 Chief Complaint: Chest Pain History of Present Illness: Patient with PMH of laryngeal cancer s/p trachestomy, presented with worsening SOB and chest pain, patient report mid chest pain, can point it with one finger, denies radiation, no palpitations, no syncope. Allergies levofloxacin [From Levaquin] Allergy (Severe, Verified 03/30/24 05:25) Itching/Hives/Rash ampicillin Allergy (Verified 03/30/24 05:25) Itching/Hives/Rash iodine Allergy (Verified 03/30/24 05:25) Hives/Rash Home medications list reviewed: Yes Home Medications: Atorvastatin Calcium [Lipitor] 80 mg PO DAILY 08/30/24 Escitalopram [Lexapro*] 20 mg PO DAILY 08/30/24 Fluticasone Propion/Salmeterol [Fluticasone-Salmeterol 100-50] 1 spray IH BID 08/30/24 Gabapentin 800 mg PO TIDWM 08/30/24 Levothyroxine [Synthroid*] 100 mcg PO [id number] 08/30/24 Lipase/Protease/Amylase [Chucho Dr 12,000 Unit Capsule] 1 cap PO TIDWM 08/30/24 Pantoprazole [Protonix Tab*] 40 mg PO BID 08/30/24 Azithromycin Tab [Zithromax*] 250 mg PO DAILY 4 Days #4 tab 09/01/24 Doxycycline Hyclate 100 mg PO BID 7 Days #14 tab 09/01/24 - Past Medical/Surgical History Diabetic: No -: Asthma -: Depression -: Throat cancer status post complete laryngectomy/reconstruction 06/2018 -: Recurrent postop infection -: Chronic pain -: Former tobacco use -: Surgical hypothyroidism -: neuropathy -: Pancreatitis/duodenitis -: Tracheostomy -: Appendectomy -: Complete laryngectomy with reconstruction -: knee surgery bilateral knees -: Thyroidectomy Psychosocial/ Personal History: Patient is . He has 3 children. - Family History Father Medical History: Heart disease, Diabetes Notes: agent orange: immobile Mother Medical History: Cancer Notes: breast ca - Social History Smoking Status: Current every day smoker Alcohol use: No CD- Drugs: No Caffeine use: Yes Review of Systems 10-point ROS is otherwise unremarkable Physical Examination Temp Pulse Resp BP Pulse Ox 98.2 F 58 18 132/71 97 12/18/24 12:00 12/18/24 12:00 12/18/24 12:00 12/18/24 12:00 12/18/24 12:00 General: Alert, In no apparent distress HEENT: Atraumatic, PERRLA, Mucous membr. moist/pink, EOMI, Sclerae nonicteric Neck: Supple, 2+ carotid pulse no bruit, No LAD, Without JVD or thyroid abnormality Respiratory: Clear to auscultation bilaterally, Normal air movement Cardiovascular: Regular rate/rhythm, Normal S1 S2 Gastrointestinal: Normal bowel sounds, No tenderness Musculoskeletal: No tenderness Integumentary: No rashes Neurological: Normal gait, Normal speech, Normal tone, Normal affect Lymphatics: No axilla or inguinal lymphadenopathy Laboratory Data (last 24 hrs) 12/18/24 12/18/24 12/18/24 02:54 01:46 01:46 WBC 10.80 Hgb 15.2 Hct 44.9 Plt Count 299 PT 12.1 INR 1.07 Sodium Potassium BUN Creatinine Glucose Magnesium Total Bilirubin AST ALT Alkaline Phosphatase Lipase Cancelled 12/18/24 01:46 WBC Hgb Hct Plt Count PT INR Sodium 138 Potassium 3.4 L BUN 6 L Creatinine 0.97 Glucose 127 H Magnesium 2.0 Total Bilirubin 0.5 AST 17 ALT 29 Alkaline Phosphatase 105 Lipase 47 - Problems (1) Chest pain Current Visit: Yes Status: Acute Plan: atypical with negative troponin x3 sets No further inpatient cardiac work up needed continue ASA and Lipitor Patient to follow up with cardiology as outpatient. please call with any questions.
[2024-12-18] MEDS: ATORVASTATIN 40 MG TAB PO SCH (20:00)
[2024-12-19] MEDS: MORPHINE 2 MG/ML SYR IV PRN (15:23)
[2024-12-19] MEDS: ONDANSETRON 4 MG/2 ML VIAL IV PRN (15:23)
[2024-12-19] MEDS: NICOTINE 21 MG/PAT TD SCH (16:16)
--- NOTE | 2024-12-20 12:41 | RAD REPORT ---
EXAM: Chest Single View HISTORY: 54 years Male pneumonia COMPARISON: 12/18/2024 FINDINGS: LUNGS/PLEURA: Decreased lung volumes with mild increased right basilar opacities. CARDIAC/MEDIASTINUM: The cardiac silhouette is within normal limits. UPPER ABDOMEN: No significant abnormality. BONES: No acute abnormality. LINES/TUBES/OTHER: N/A IMPRESSION: Decreased lung volumes with increased right basilar opacities could reflect atelectasis or pneumoniti s.
[2024-12-20] MEDS: METOCLOPRAMIDE 10 MG/2mL INJ IV SCH (16:49)
[2024-12-20 17:30] LABS: Absolute Lymphocytes (CBC) 0.8 K/uL (0.7-4.9); Hematocrit 42.8 % (39.6-49.0); Hemoglobin 14.1 g/dL (13.6-17.9); MCH 29.0 pg (27.0-35.0); MCHC 32.8 g/dL (32.0-36.0); MCV 88.4 fL (80-100); MPV 7.7 fL (7.6-11.3); Nucleated RBC Absolute Count 0.0 (0-0); Nucleated Red Blood Cells % 0.1 % (0-0); RBC Red Blood Cell Count 4.85 M/uL (4.33-5.43); White Blood Count 20.20 thou/uL (4.3-10.9)
[2024-12-20 17:37] LABS: PT Prothrombin Time 11.1 SECONDS (10-13.0); PTT, Activated Partial Thromb 27.3 SECONDS (27.2-37.4); Protime INR 0.98
[2024-12-20 17:51] LABS: ALT/SGPT 37 U/L (16-61); Albumin 3.7 g/dL (3.4-5.0); Albumin/Globulin Ratio 1.1 (1.1-1.8); Alkaline Phosphatase 111 U/L (45-117); Anion Gap 7.0 mEq/L (5.0-15.0); BUN Blood Urea Nitrogen 13 mg/dL (7-18); Globulin 3.5 g/dL (2.3-3.5); Glucose Level 117 mg/dL (74-106); Magnesium 2.3 mg/dL (1.6-2.4); NT PRO-BNP 272 pg/mL (<125); Potassium 4.0 mEq/L (3.5-5.1); Troponin High Sensitivity 9.9 pg/mL (<58.9)
[2024-12-20 17:55] LABS: AST/SGOT < 10 U/L (15-37)
[2024-12-20 18:18] LABS: Blood Morphology Comment NOT SEEN (NOT SEEN); White Blood Cell Scan OK (OK)
[2024-12-20] MEDS: NA CHLORIDE 0.9% 1,000 ML IV SCH (18:21)
[2024-12-21] MEDS: DIPHENHYDRAMINE 50 MG/ML VIAL IV SCH (01:17)
--- NOTE | 2024-12-21 03:38 | P.PN ---
Date of Service: 12/19/24 Subjective Patient's still having some cough and congestion along with some chest pain. Clinical symptoms continues with nausea and vomiting. Will check abdominal symptoms. Patient with chronic pancreatitis and will resume Creon therapy. May need to image if he continues. Physical Examination - Vital Signs reviewed - Physical Exam General: Alert, Oriented x3, Mild distress Respiratory: Normal air movement, Expiratory wheezes Cardiovascular: Regular rate/rhythm, Normal S1 S2 Gastrointestinal: Soft and benign, W/out hepatosplenomegaly Musculoskeletal: No clubbing Integumentary: No rashes Neurological: no focal deficits Assessment and Plan - Assessment/Plan 1. Chest pain rule out ACS; serial troponins negative. Continue to monitor on telemetry. On aspirin and statin. Echocardiogram and cardiology consult pending 2. COPD exacerbation; started on bronchodilators. Oxygen supplementation. IV steroids. CXR pending 3. Lactic acidosis; monitor lactic acid level. Will check CT abdomen pelvis and CT chest. Continue with antibiotic. Obtain cultures. 4. Throat cancer status post laryngectomy; remission 5. Anxiety; continue with anxiolytics 6. Continue home medications and titrate as needed GI/DVT prophylaxis Advanced directive full code Discharge Plan: Home Plan to discharge in: 48 Hours - Advance Directives Does patient have a Living Will: No Does patient have a Durable POA for Healthcare: No - Code Status/Comfort Care Code Status: Full Code Time Spent Managing Pts Care (In Minutes): 30
[2024-12-21 05:47] LABS: Absolute Lymphocytes (CBC) 0.7 K/uL (0.7-4.9); Hematocrit 43.0 % (39.6-49.0); Hemoglobin 14.2 g/dL (13.6-17.9); MCH 29.2 pg (27.0-35.0); MCHC 33.1 g/dL (32.0-36.0); MCV 88.2 fL (80-100); MPV 8.0 fL (7.6-11.3); Nucleated RBC Absolute Count 0.0 (0-0); Nucleated Red Blood Cells % 0.0 % (0-0); RBC Red Blood Cell Count 4.88 M/uL (4.33-5.43); White Blood Count 18.50 thou/uL (4.3-10.9)
[2024-12-21 06:09] LABS: ALT/SGPT 35 U/L (16-61); Albumin 3.4 g/dL (3.4-5.0); Albumin/Globulin Ratio 1.0 (1.1-1.8); Alkaline Phosphatase 106 U/L (45-117); Anion Gap 8.2 mEq/L (5.0-15.0); BUN Blood Urea Nitrogen 15 mg/dL (7-18); Globulin 3.4 g/dL (2.3-3.5); Glucose Level 116 mg/dL (74-106); Potassium 4.2 mEq/L (3.5-5.1)
[2024-12-21 06:10] LABS: AST/SGOT < 10 U/L (15-37)
[2024-12-21] MEDS: LEVOTHYROXINE SOD 0.1 MG TAB PO SCH (06:31)
--- NOTE | 2024-12-21 09:07 | RAD REPORT ---
EXAM: Chest Abdomen Pelvis W Cont CLINICAL INDICATION: Male, 54 years persistent nausea and vomiting; TECHNIQUE: CT chest, abdomen and pelvis was performed, with IV contrast, as per department protocol. Axial, sagittal and coronal reconstructions were obtained. One or more of the following dose reduction techniques were used: Automated exposure control, adjustment of the mA and/or kV according to the patient size, and/or iterative reconstruction. Unless otherwise specified, incidental findings do not require dedicated imaging follow-up. [id number]. COMPARISON: No prior exams FINDINGS: ---THORAX--- LOWER NECK AND CHEST WALL: Visualized thyroid gland and soft tissues are normal. Tracheostomy defect. MEDIASTINUM AND LYMPH NODES: No mediastinal mass or fluid collection. Normal size mediastinal, hilar, and axillary lymph nodes. Mild distal esophageal thickening. THORACIC AORTA: No thoracic aortic aneurysm. Atherosclerotic changes are present. PULMONARY ARTERIES: Caliber is within normal limits. Unable to evaluate for pulmonary emboli due to e ither protocol or lack of contrast. HEART: Normal heart size. Severe coronary artery calcifications.No significant pericardial effusion. LUNGS AND AIRWAYS: Bronchial wall thickening which could reflect either acute or chronic bronchitis. No acute airspace process identified. Scattered 4 mm and smaller pulmonary nodules noted which are of doubtful significance and do not require follow-up. PLEURA: No pleural effusion. No pneumothorax. ---ABDOMEN/PELVIS--- UPPER GI: No significant abnormality. LIVER: Mild nodular liver contour. GALLBLADDER/BILE DUCTS: Cholecystectomy. Mild extra-hepatic biliary ductal dilatation is likely relat ed to the post-cholecystectomy state. Consider correlating with LFT's.? PANCREAS: No mass, ductal dilation, or selene-pancreatic fluid. SPLEEN: Unremarkable. ADRENALS: No adrenal masses. KIDNEYS AND URETERS: No hydronephrosis.No suspicious renal mass.No renal calculi.No ureteral calculi. ABDOMINAL AORTA AND OTHER VESSELS: Moderate atherosclerotic changes without aortic aneurysm. PERITONEUM: No abnormal free fluid. No free air. LYMPH NODES: No pathologic lymphadenopathy. ABDOMINAL WALL: Small fat containing umbilical hernia. SMALL BOWEL/COLON: Small bowel has normal course and caliber. No colonic wall thickening or pericolon ic inflammatory changes. Moderate formed stool burden. URINARY BLADDER: Nonspecific circumferential bladder wall thickening. REPRODUCTIVE ORGANS: No pathologic process. ---COMBINED--- MUSCULOSKELETAL: No acute or suspicious osseous abnormality. ADDITIONAL FINDINGS: None. IMPRESSION: No acute findings within the chest, abdomen, or pelvis. Incidental findings as noted above,
[2024-12-21] MEDS: ESCITALOPRAM 20 MG TAB PO SCH (14:26)
[2024-12-21] MEDS: METOCLOPRAMIDE 10 MG/2mL INJ IM SCH (15:09)
--- NOTE | 2024-12-21 16:47 | P.PN ---
Date of Service: 12/21/24 Subjective: Assuming care today. Vital stable overnight. does not feel well today. He has been vomiting today. Feels fatigued. Discussed with nursing staff. No family at bedside Physical Examination - Vital Signs reviewed - Physical Exam General: Alert, Oriented x3, Mild distress Respiratory: Normal air movement, Expiratory wheezes Cardiovascular: Regular rate/rhythm, Normal S1 S2 Gastrointestinal: Soft and benign, W/out hepatosplenomegaly Musculoskeletal: No clubbing Integumentary: No rashes Neurological: no focal deficits Assessment and Plan - Assessment/Plan 12/21 - Continue Solu-Medrol, azithromycin, DuoNeb - Appreciate cardiology input, continue aspirin and Lipitor, follow-up with cardiology as an outpatient - Lactic acidosis resolved - Trial Zofran and Phenergan for vomiting. - Negative procalcitonin - CT chest abdomen pelvis reviewed by me without any acute finding. 1. Chest pain rule out ACS; serial troponins negative. Continue to monitor on telemetry. On aspirin and statin. Echocardiogram and cardiology consult pending 2. COPD exacerbation; started on bronchodilators. Oxygen supplementation. IV steroids. CXR pending 3. Lactic acidosis; monitor lactic acid level. Will check CT abdomen pelvis and CT chest. Continue with antibiotic. Obtain cultures. 4. Throat cancer status post laryngectomy; remission 5. Anxiety; continue with anxiolytics 6. Continue home medications and titrate as needed GI/DVT prophylaxis Advanced directive full code Discharge Plan: Home Plan to discharge in: 48 Hours - Advance Directives Does patient have a Living Will: No Does patient have a Durable POA for Healthcare: No - Code Status/Comfort Care Code Status: Full Code
[2024-12-21] MEDS: LIPASE/PROTEASE/AMYLASE CAP PO SCH (17:13)
[2024-12-21] MEDS: PANTOPRAZOLE 40MG TABLET PO SCH (17:14)
[2024-12-22 09:46] LABS: Absolute Lymphocytes (CBC) 0.9 K/uL (0.7-4.9); Hematocrit 45.1 % (39.6-49.0); Hemoglobin 14.8 g/dL (13.6-17.9); MCH 28.8 pg (27.0-35.0); MCHC 32.8 g/dL (32.0-36.0); MCV 87.8 fL (80-100); MPV 7.8 fL (7.6-11.3); Nucleated RBC Absolute Count 0.0 (0-0); Nucleated Red Blood Cells % 0.1 % (0-0); RBC Red Blood Cell Count 5.14 M/uL (4.33-5.43); White Blood Count 18.00 thou/uL (4.3-10.9)
[2024-12-22 10:04] LABS: ALT/SGPT 58.0 U/L (16-61); AST/SGOT 23.0 U/L (15-37); Albumin 3.5 g/dL (3.4-5.0); Albumin/Globulin Ratio 1.0 (1.1-1.8); Alkaline Phosphatase 100.0 U/L (45-117); Anion Gap 8.0 mEq/L (5.0-15.0); BUN Blood Urea Nitrogen 19.0 mg/dL (7-18); Globulin 3.4 g/dL (2.3-3.5); Glucose Level 149.0 mg/dL (74-106); Potassium 4.0 mEq/L (3.5-5.1)
[2024-12-22 10:37] LABS: Blood Morphology Comment NOT SEEN (NOT SEEN); Differential Total Cells Count 100; Segmented Neutrophils 90 % (40-80); Toxic Granulation 2+
--- NOTE | 2024-12-22 13:41 | P.PN ---
Date of Service: 12/22/24 Subjective: States he feels weak and is still nauseous. Denies fevers and chills Physical Examination - Vital Signs reviewed - Physical Exam General: Alert, Oriented x3, Mild distress Respiratory: Normal air movement, Expiratory wheezes Cardiovascular: Regular rate/rhythm, Normal S1 S2 Gastrointestinal: Soft and benign, W/out hepatosplenomegaly Musculoskeletal: No clubbing Integumentary: No rashes Neurological: no focal deficits Assessment and Plan - Assessment/Plan 12/22 - Lactic acidosis resolved - Continue azithromycin - Continue Solu-Medrol, ipratropium, albuterol - Continue Lexapro - Continue aspirin and statin 12/21 - Continue Solu-Medrol, azithromycin, DuoNeb - Appreciate cardiology input, continue aspirin and Lipitor, follow-up with cardiology as an outpatient - Lactic acidosis resolved - Trial Zofran and Phenergan for vomiting. - Negative procalcitonin - CT chest abdomen pelvis reviewed by me without any acute finding. 1. Chest pain rule out ACS; serial troponins negative. Continue to monitor on telemetry. On aspirin and statin. Echocardiogram and cardiology consult pending 2. COPD exacerbation; started on bronchodilators. Oxygen supplementation. IV steroids. CXR pending 3. Lactic acidosis; monitor lactic acid level. Will check CT abdomen pelvis and CT chest. Continue with antibiotic. Obtain cultures. 4. Throat cancer status post laryngectomy; remission 5. Anxiety; continue with anxiolytics 6. Continue home medications and titrate as needed GI/DVT prophylaxis Advanced directive full code Discharge Plan: Home Plan to discharge in: 48 Hours - Advance Directives Does patient have a Living Will: No Does patient have a Durable POA for Healthcare: No - Code Status/Comfort Care Code Status: Full Code
[2024-12-23] MEDS: IPRATROPIUM BROM 0.5MG/2.5ML NEB PRN (07:57)
[2024-12-23 09:32] LABS: Absolute Lymphocytes (CBC) 1.0 K/uL (0.7-4.9); Hematocrit 44.2 % (39.6-49.0); Hemoglobin 14.8 g/dL (13.6-17.9); MCH 29.3 pg (27.0-35.0); MCHC 33.4 g/dL (32.0-36.0); MCV 87.9 fL (80-100); MPV 8.1 fL (7.6-11.3); Nucleated RBC Absolute Count 0.0 (0-0); Nucleated Red Blood Cells % 0.1 % (0-0); RBC Red Blood Cell Count 5.03 M/uL (4.33-5.43); White Blood Count 17.50 thou/uL (4.3-10.9)
[2024-12-23 09:53] LABS: ALT/SGPT 46.0 U/L (16-61); AST/SGOT 20.0 U/L (15-37); Albumin 3.3 g/dL (3.4-5.0); Albumin/Globulin Ratio 0.9 (1.1-1.8); Alkaline Phosphatase 97.0 U/L (45-117); Anion Gap 7.5 mEq/L (5.0-15.0); BUN Blood Urea Nitrogen 21.0 mg/dL (7-18); Globulin 3.5 g/dL (2.3-3.5); Glucose Level 107.0 mg/dL (74-106); Potassium 4.5 mEq/L (3.5-5.1)
[2024-12-23 10:51] LABS: Differential Total Cells Count 100; Segmented Neutrophils 84 % (40-80)
[2024-12-23 10:52] LABS: Blood Morphology Comment NOT SEEN (NOT SEEN)
--- NOTE | 2024-12-23 15:05 | P.PN ---
Date of Service: 12/23/24 Subjective: Endorses vomiting. States the vomiting started 1 week ago. He is unable to keep anything down. Slight improvement today. Vitals remained stable Physical Examination - Vital Signs reviewed - Physical Exam General: Alert, Oriented x3, Mild distress Respiratory: Normal air movement, Expiratory wheezes Cardiovascular: Regular rate/rhythm, Normal S1 S2 Gastrointestinal: Soft and benign, W/out hepatosplenomegaly Musculoskeletal: No clubbing Integumentary: No rashes Neurological: no focal deficits Assessment and Plan - Assessment/Plan 12/23 - Persistent vomiting, obtain speech/swallow evaluation - Modified barium swallow in the a.m. - Will consult GI for possible endoscopy - Leukocytosis likely secondary to steroids, steroids have been stopped - Check lipase - Continue aspirin and statin - Continue Creon, Protonix 12/22 - Lactic acidosis resolved - Continue azithromycin - Continue Solu-Medrol, ipratropium, albuterol - Continue Lexapro - Continue aspirin and statin 12/21 - Continue Solu-Medrol, azithromycin, DuoNeb - Appreciate cardiology input, continue aspirin and Lipitor, follow-up with cardiology as an outpatient - Lactic acidosis resolved - Trial Zofran and Phenergan for vomiting. - Negative procalcitonin - CT chest abdomen pelvis reviewed by me without any acute finding. 1. Chest pain rule out ACS; serial troponins negative. Continue to monitor on telemetry. On aspirin and statin. Echocardiogram and cardiology consult pending 2. COPD exacerbation; started on bronchodilators. Oxygen supplementation. IV steroids. CXR pending 3. Lactic acidosis; monitor lactic acid level. Will check CT abdomen pelvis and CT chest. Continue with antibiotic. Obtain cultures. 4. Throat cancer status post laryngectomy; remission 5. Anxiety; continue with anxiolytics 6. Continue home medications and titrate as needed GI/DVT prophylaxis Advanced directive full code Discharge Plan: Home Plan to discharge in: 48 Hours - Advance Directives Does patient have a Living Will: No Does patient have a Durable POA for Healthcare: No - Code Status/Comfort Care Code Status: Full Code
[2024-12-24 08:30] LABS: Absolute Lymphocytes (CBC) 1.7 K/uL (0.7-4.9); Hematocrit 44.7 % (39.6-49.0); Hemoglobin 14.9 g/dL (13.6-17.9); MCH 28.9 pg (27.0-35.0); MCHC 33.4 g/dL (32.0-36.0); MCV 86.7 fL (80-100); MPV 7.8 fL (7.6-11.3); Nucleated RBC Absolute Count 0.0 (0-0); Nucleated Red Blood Cells % 0.2 % (0-0); RBC Red Blood Cell Count 5.15 M/uL (4.33-5.43); White Blood Count 13.60 thou/uL (4.3-10.9)
[2024-12-24 08:42] LABS: ALT/SGPT 49.0 U/L (16-61); AST/SGOT 19.0 U/L (15-37); Albumin 3.1 g/dL (3.4-5.0); Albumin/Globulin Ratio 1.0 (1.1-1.8); Alkaline Phosphatase 90.0 U/L (45-117); Anion Gap 9.0 mEq/L (5.0-15.0); BUN Blood Urea Nitrogen 19.0 mg/dL (7-18); Globulin 3.1 g/dL (2.3-3.5); Glucose Level 84.0 mg/dL (74-106); Potassium 4.0 mEq/L (3.5-5.1)
[2024-12-24] MEDS: MORPHINE 2 MG/ML SYR IV PRN ×2 (11:31→17:19)
--- NOTE | 2024-12-24 11:57 | RAD REPORT ---
Modified barium swallow exam with speech pathology service HISTORY: [facility] MAIN vomiting, unable to keep food down Fluoroscopy Time: 4:19 minutes. Skin dose: 24.12 mGy IMPRESSION: Please see the speech pathology service report for details. Barium contrast of multiple consistencies was provided the patient orally by the speech pathology dep artment. Fluoroscopic observation was performed during swallowing. The radiologist was not present for the examination. Provided images demonstrate no evidence for morgan subglottic tracheal aspiration .
--- NOTE | 2024-12-24 13:07 | P.PN ---
Date of Service: 12/25/19 Subjective: His vomiting is somewhat improved. He is seen resting comfortably in bed. Vitals are stable. No acute issues overnight Physical Examination - Vital Signs reviewed - Physical Exam General: Alert, Oriented x3, Mild distress Respiratory: Normal air movement, Expiratory wheezes Cardiovascular: Regular rate/rhythm, Normal S1 S2 Gastrointestinal: Soft and benign, W/out hepatosplenomegaly Musculoskeletal: No clubbing Integumentary: No rashes Neurological: no focal deficits Assessment and Plan - Assessment/Plan 12/24 - Barium swallow without gross abnormality - CT abdomen and chest as well as lipase within normal limit - States he is feeling better but still having vomiting - Possible outpatient follow-up with GI for EGD - Continue Zofran and Phenergan as needed - Morphine for pain control 12/23 - Persistent vomiting, obtain speech/swallow evaluation - Modified barium swallow in the a.m. - Will consult GI for possible endoscopy - Leukocytosis likely secondary to steroids, steroids have been stopped - Check lipase - Continue aspirin and statin - Continue Creon, Protonix 12/22 - Lactic acidosis resolved - Continue azithromycin - Continue Solu-Medrol, ipratropium, albuterol - Continue Lexapro - Continue aspirin and statin 12/21 - Continue Solu-Medrol, azithromycin, DuoNeb - Appreciate cardiology input, continue aspirin and Lipitor, follow-up with cardiology as an outpatient - Lactic acidosis resolved - Trial Zofran and Phenergan for vomiting. - Negative procalcitonin - CT chest abdomen pelvis reviewed by me without any acute finding. 1. Chest pain rule out ACS; serial troponins negative. Continue to monitor on telemetry. On aspirin and statin. Echocardiogram and cardiology consult pending 2. COPD exacerbation; started on bronchodilators. Oxygen supplementation. IV steroids. CXR pending 3. Lactic acidosis; monitor lactic acid level. Will check CT abdomen pelvis and CT chest. Continue with antibiotic. Obtain cultures. 4. Throat cancer status post laryngectomy; remission 5. Anxiety; continue with anxiolytics 6. Continue home medications and titrate as needed GI/DVT prophylaxis Advanced directive full code Discharge Plan: Home Plan to discharge in: 48 Hours - Advance Directives Does patient have a Living Will: No Does patient have a Durable POA for Healthcare: No - Code Status/Comfort Care Code Status: Full Code
[2024-12-24 23:24] VITALS: O2SAT 94
--- NOTE | 2024-12-25 08:19 | P.DS ---
Admission Date: 12/18/24 Discharge Date: 12/25/24 Disposition: ROUTINE DISCHARGE Discharge Condition: GOOD Reason for Admission: Chest Pain Brief History of Present Illness: 54 yrs old Male with past medical history of asthma, CHF, pancreatitis, throat cancer status post tracheostomy and laryngectomy and COPD presents to ER with shortness of breath and chest pain. Symptoms started a day ago and has been progressively getting worse. Chest pain is retrosternal with no radiation no fever or chills.The patient's shortness of breath is aggravated by coughing, exertion, light activity, is alleviated by nebulizer treatment, rest, sitting up, application of supplemental oxygen. Associated with nonproductive cough. History is limited because of the non verbal. At the time of interview chest pain is resolved. Patient was assessed in the ER and was admitted for further management. Upon admission he was started on bronchodilators, steroids. His hospital course was complicated with vomiting. He underwent barium swallow wh ich did not reveal any abnormalities. His vomiting improved with Zofran. CT abdomen and chest did not reveal any acute abnormalities. Lipase within normal limit. He is medically optimized for discharge Hospital Course: Physical Examination - Vital Signs reviewed - Physical Exam General: Alert, Oriented x3, Mild distress Respiratory: Normal air movement, Expiratory wheezes Cardiovascular: Regular rate/rhythm, Normal S1 S2 Gastrointestinal: Soft and benign, W/out hepatosplenomegaly Musculoskeletal: No clubbing Integumentary: No rashes Neurological: no focal deficits Assessment and Plan - Assessment/Plan 12/25 -Home today with steroid, Mucinex, Zofran 12/24 - Barium swallow without gross abnormality - CT abdomen and chest as well as lipase within normal limit - States he is feeling better but still having vomiting - Possible outpatient follow-up with GI for EGD - Continue Zofran and Phenergan as needed - Morphine for pain control 12/23 - Persistent vomiting, obtain speech/swallow evaluation - Modified barium swallow in the a.m. - Will consult GI for possible endoscopy - Leukocytosis likely secondary to steroids, steroids have been stopped - Check lipase - Continue aspirin and statin - Continue Creon, Protonix 12/22 - Lactic acidosis resolved - Continue azithromycin - Continue Solu-Medrol, ipratropium, albuterol - Continue Lexapro - Continue aspirin and statin 12/21 - Continue Solu-Medrol, azithromycin, DuoNeb - Appreciate cardiology input, continue aspirin and Lipitor, follow-up with cardiology as an outpatient - Lactic acidosis resolved - Trial Zofran and Phenergan for vomiting. - Negative procalcitonin - CT chest abdomen pelvis reviewed by me without any acute finding. 1. Chest pain rule out ACS; serial troponins negative. Continue to monitor on telemetry. On aspirin and statin. Echocardiogram and cardiology consult pending 2. COPD exacerbation; started on bronchodilators. Oxygen supplementation. IV steroids. CXR pending 3. Lactic acidosis; monitor lactic acid level. Will check CT abdomen pelvis and CT chest. Continue with antibiotic. Obtain cultures. 4. Throat cancer status post laryngectomy; remission 5. Anxiety; continue with anxiolytics 6. Continue home medications and titrate as needed GI/DVT prophylaxis Advanced directive full code Discharge Plan: Home Plan to discharge in: 48 Hours - Advance Directives Does patient have a Living Will: No Does patient have a Durable POA for Healthcare: No - Code Status/Comfort Care Code Status: Full Code Vital Signs/Physical Exam: Temp Pulse Resp BP Pulse Ox 98.3 F 69 20 118/74 95 12/25/24 04:00 12/25/24 04:00 12/25/24 05:57 12/25/24 04:00 12/25/24 05:57 Laboratory Data at Discharge: WBC 13.60 thou/uL (4.3-10.9) H 12/24/24 08:04 Hgb 14.9 g/dL (13.6-17.9) 12/24/24 08:04 Hct 44.7 % (39.6-49.0) 12/24/24 08:04 Plt Count 233 thou/uL (152-406) 12/24/24 08:04 PT 11.1 SECONDS (10-13.0) 12/20/24 16:58 INR 0.98 12/20/24 16:58 APTT 27.3 SECONDS (27.2-37.4) 12/20/24 16:58 Sodium 140 mEq/L (136-145) 12/24/24 08:04 Potassium 4.0 mEq/L (3.5-5.1) 12/24/24 08:04 BUN 19 mg/dL (7-18) H 12/24/24 08:04 Creatinine 0.97 mg/dL (0.70-1.30) 12/24/24 08:04 Glucose 84 mg/dL (74-106) 12/24/24 08:04 Phosphorus 4.0 mg/dL (2.5-4.9) 12/21/24 05:05 Magnesium 2.3 mg/dL (1.6-2.4) 12/20/24 16:58 Total Bilirubin 0.4 mg/dL (0.2-1.0) 12/24/24 08:04 AST 19 U/L (15-37) 12/24/24 08:04 ALT 49 U/L (16-61) 12/24/24 08:04 Alkaline Phosphatase 90 U/L (45-117) 12/24/24 08:04 Lipase 49 U/L (13-75) 12/23/24 15:47 Home Medications: Atorvastatin Calcium [Lipitor] 80 mg PO DAILY 08/30/24 Escitalopram [Lexapro*] 20 mg PO DAILY 08/30/24 Gabapentin 800 mg PO TIDWM 08/30/24 Levothyroxine [Synthroid*] 100 mcg PO [id number] 08/30/24 Lipase/Protease/Amylase [Creon Dr 12,000 Unit Capsule] 1 cap PO TIDWM 08/30/24 Pantoprazole [Protonix Tab*] 40 mg PO BID 08/30/24 Fluticasone Propion/Salmeterol [Fluticasone-Salmeterol 100-50] 1 spray IH BID 30 Days #1 inhaler 12/23/24 Ondansetron [Zofran] 4 mg PO Q6H PRN 5 Days #30 tab 12/23/24 predniSONE [Deltasone] 20 mg PO BID 5 Days #10 tab 12/25/24 New Medications: Fluticasone Propion/Salmeterol [Fluticasone-Salmeterol 100-50] 1 spray IH BID 30 Days #1 inhaler predniSONE [Deltasone] 20 mg PO BID 5 Days #10 tab Ondansetron [Zofran] 4 mg PO Q6H PRN 5 Days #30 tab PRN Reason: Nausea / Vomiting Followup: Michelle Justice, ZULAY [Primary Care Provider] - 2-3 Days Jesus Ross MD [ASSOCIATE-ACTIVE - CAN ADMIT] - 1-2 Weeks
[2024-12-25 13:31] VITALS: BP 99/71; TEMP 98.2
== END 2024-12-25 15:52 | disposition home or self-care (01) | DRG 191 ==
LOC: ER 01:13 → ERHOLD 03:49 → 4TH 06:46
PROVIDERS: ADMIT Family Medicine; ATTEND Family Medicine
DX: J44.1 Chronic obstructive pulmonary disease with (acute) exacerbation (principal); E87.20 Acidosis, unspecified; K86.1 Other chronic pancreatitis; I50.9 Heart failure, unspecified; I11.0 Hypertensive heart disease with heart failure; F41.9 Anxiety disorder, unspecified; D72.829 Elevated white blood cell count, unspecified; T38.0X5A Adverse effect of glucocorticoids and synthetic analogues, initial encounter; F17.210 Nicotine dependence, cigarettes, uncomplicated; R07.9 Chest pain, unspecified; Z93.0 Tracheostomy status; Z71.6 Tobacco abuse counseling; Z88.1 Allergy status to other antibiotic agents; Z11.52 Encounter for screening for COVID-19; Z90.49 Acquired absence of other specified parts of digestive tract; Z91.041 Radiographic dye allergy status; Z91.048 Other nonmedicinal substance allergy status; Z79.890 Hormone replacement therapy; Z79.899 Other long term (current) drug therapy
CPT/HCPCS: 36415; 71045; 71250; 71260; 74176; 74177; 74230; 80048; 80053; 80076; 81003; 83605; 83690; 83735; 83880; 84100; 84145; 84484; 85025; 85610; 85730; 87040; 87428; 92611; 93005; 93306; 94640; 96372; 99285; J0456; J0696; J1200; J1650; J2270; J2405; J2550; J2765; J2919; J7030; J7050; J7613; J7614; J7644; Q9967

== ENCOUNTER 2025-01-02 22:50 | Emergency (ER) | payer OTHER ==
[2025-01-03] MEDS ORDERED: ALBUTEROL 2.5 MG/3 ML NEB SOL ONE (02:24)
[2025-01-03] MEDS ORDERED: MORPHINE 4 MG/ML SYR ONE (02:24)
[2025-01-03] MEDS ORDERED: ONDANSETRON 4 MG/2 ML VIAL ONE ×2 (02:24→05:39)
[2025-01-03] MEDS ORDERED: IPRATROPIUM BROM 0.5MG/2.5ML ONE (02:24)
[2025-01-03 02:25] LABS: Absolute Lymphocytes (CBC) 1.6 K/uL (0.7-4.9); Hematocrit 40.4 % (39.6-49.0); Hemoglobin 13.4 g/dL (13.6-17.9); MCH 29.0 pg (27.0-35.0); MCHC 33.1 g/dL (32.0-36.0); MCV 87.4 fL (80-100); MPV 7.6 fL (7.6-11.3); Nucleated RBC Absolute Count 0.0 (0-0); Nucleated Red Blood Cells % 0.1 % (0-0); RBC Red Blood Cell Count 4.63 M/uL (4.33-5.43); Urine Microscopic Reflex YN NO UMIC; White Blood Count 15.00 thou/uL (4.3-10.9)
[2025-01-03 02:41] LABS: ALT/SGPT 29 U/L (16-61); Albumin 3.3 g/dL (3.4-5.0); Albumin/Globulin Ratio 1.0 (1.1-1.8); Alkaline Phosphatase 89 U/L (45-117); Anion Gap 6.0 mEq/L (5.0-15.0); BUN Blood Urea Nitrogen 9 mg/dL (7-18); Globulin 3.2 g/dL (2.3-3.5); Glucose Level 79 mg/dL (74-106); Lipase 79 U/L (13-75); Potassium 4.0 mEq/L (3.5-5.1)
[2025-01-03 02:45] LABS: AST/SGOT < 10 U/L (15-37)
[2025-01-03 03:41] LABS: Magnesium 2.2 mg/dL (1.6-2.4); NT PRO-BNP 108.0 pg/mL (<125); Troponin High Sensitivity 6.1 pg/mL (<58.9)
[2025-01-03 03:59] LABS: Influenza A Ag Negative; Influenza B Ag Negative; SARS-CoV-2 Antigen Rapid Res Negative (Negative)
[2025-01-03] MEDS ORDERED: KETOROLAC 30 MG/ML INJ ONE (04:20)
--- NOTE | 2025-01-03 04:34 | RAD REPORT ---
EXAM: XR Chest, 1 View CLINICAL HISTORY: The patient is 54 years old and is Male; SOB TECHNIQUE: Frontal view of the chest. COMPARISON: No relevant prior studies available. FINDINGS: Lungs: Prominent interstitial markings. Peribronchial thickening. No consolidation. Pleural space: Unremarkable. No pneumothorax. Heart: Unremarkable. Mediastinum: Unremarkable. Normal mediastinal contour. Bones/joints: No acute findings. IMPRESSION: Prominent interstitial markings. Peribronchial thickening. No consolidation. Electronically signed by: Deny Richards MD 01/03/2025 02:57 AM CDT 8 Due to temporary technical issues with the PACS/Tekmi reporting system, reports are being maryellen d by the in-house radiologist without review as a courtesy to ensure prompt reporting the interpreting radiologist is fully responsible for the content of the report. Transcribed Date/Time: 01/03/2025 4:34 AM
--- NOTE | 2025-01-03 05:30 | EDPHYS ---
Physician Documentation [facility] Name: Akin Pugh Age: 54 yrs Sex: Male : 1970 Arrival Date: 01/02/2025 Time: 22:50 Bed 5 Private MD: ED Physician Clarke Morris HPI: 01/03 00:00 This 54 yrs old Male presents to ER via Ambulatory with complaints of Urinary Problem, cp Low Back Pain, Fever, Breathing Difficulty, blood in urine. 00:00 The patient presents with abdominal pain in the epigastric area, nausea/vomiting times cp 1 week. 00:00 Associated signs and symptoms: Pertinent positives: chest pain, shortness of breath. cp Historical: - Allergies: 01/02 23:13 Ampicillin; ha1 23:13 Iodinated Contrast Media - IV Dye; ha1 23:13 Iodine; ha1 23:13 Levaquin; ha1 - PMHx: 23:13 Asthma; Congestive heart failure; COPD; Pancreatitis; THROAT CA; ha1 - PSHx: 23:13 Appendectomy; Cholecystectomy; Laryngectomy; tracheostomy; ha1 - Immunization history:: Adult Immunizations up to date. - Infectious Disease History:: Denies. - Social history:: Smoking status: Patient reports the use of cigarette tobacco products, smokes one pack cigarettes per day. - Family history:: not pertinent. ROS: 01/03 00:05 Constitutional: Negative for fever, poor PO intake, cp 00:05 Eyes: Negative for injury, pain, redness, and discharge, cp 00:05 Cardiovascular: Positive for chest pain, 00:05 Respiratory: Positive for cough, shortness of breath, wheezing, 00:05 Abdomen/GI: Positive for abdominal pain, nausea and vomiting, diarrhea, Negative for constipation, 00:05 Neuro: Negative for altered mental status, 01/04 02:06 All other systems are negative, sp4 Exam: 01/03 00:10 Constitutional: The patient appears in no acute distress, alert, awake, cp non-diaphoretic, non-toxic, well developed, well nourished, 00:10 Head/Face: Normocephalic, atraumatic. cp 00:10 Eyes: Periorbital structures: appear normal, Conjunctiva: normal, no exudate, no injection, Sclera: no appreciated abnormality, Lids and lashes: appear normal, bilaterally, 00:10 ENT: External ear(s): are unremarkable, Nose: is normal, Mouth: Lips: moist, Oral mucosa: moist, Posterior pharynx: Airway: no evidence of obstruction, patent, 00:10 Chest/axilla: Inspection: normal, 00:10 Cardiovascular: Rate: normal, Rhythm: regular, Edema: is not appreciated, JVD: is not appreciated, 00:10 Respiratory: the patient does not display signs of respiratory distress, Respirations: labored breathing, that is mild, Breath sounds: bronchial sounds, that are moderate, are heard diffusely, wheezing: that is mild, is heard diffusely, 00:10 Abdomen/GI: Inspection: abdomen appears normal, Bowel sounds: active, all quadrants, Palpation: soft, in all quadrants, moderate abdominal tenderness, in the epigastric area, rebound tenderness, is not appreciated, 00:10 Neuro: Orientation: to person, place \T\ time. Mentation: is normal, Vital Signs: 01/02 23:11 BP 134 / 87; Pulse 93; Resp 20 S; Temp 98.5; Pulse Ox 98% on R/A; Weight 79.38 kg; ha1 Height 5 ft. 11 in. ; 01/03 03:08 BP 139 / 75; Pulse 67; Resp 19; Pulse Ox 99% on R/A; Pain 7/10; tb4 04:00 BP 130 / 71; Pulse 92; Resp 16; Pulse Ox 98% on R/A; tb4 05:18 BP 115 / 64; Pulse 90; Resp 19; Pulse Ox 98% on R/A; tb4 06:01 BP 107 / 79; Pulse 74; Resp 19; Pulse Ox 100% on R/A; tb4 01/02 23:11 Body Mass Index 24.41 (79.38 kg, 180.34 cm) ha1 01/03 03:08 Pain Scale: Adult tb4 MDM: 01/02 23:15 Medical Screening Exam initiated cp 01/03 01:00 Differential diagnosis: CHF exacerbation, Chronic Obstructive Pulmonary Disease cp Myocardial Infarction pneumonia, Pneumothorax pulmonary edema, Pulmonary Embolism reactive airway disease, Unstable Angina pancreatitis. 04:30 Awaiting: CT scan results. cp 04:30 Transition of care: After a detail discussion of the patient's case, care is cp transferred to Clarke Morris MD. 05:10 ED course: COMPARISON: Portable chest radiograph 01/03/2025. CT chest, abdomen and sp4 pelvis 12/21/2024. FINDINGS: ARTIFACTS: Some images are degraded by patient motion artifact. LIMITATIONS: Exam is limited due to absence of intravenous contrast. CHEST: LUNGS AND PLEURAL SPACES: Trace areas of scarring in the lungs. No new areas of consolidation. No significant effusion. No pneumothorax. HEART: Moderately advanced coronary artery calcification. No cardiomegaly. No significant pericardial effusion. ABDOMEN: LIVER: Unremarkable. GALLBLADDER AND BILE DUCTS: Cholecystectomy clips. No ductal dilation. PANCREAS: Unremarkable. No ductal dilation. SPLEEN: Unremarkable. No splenomegaly. ADRENALS: Unremarkable. No mass. KIDNEYS AND URETERS: Punctate nonobstructing right renal stones. STOMACH AND BOWEL: Assessment of bowel is somewhat limited by absence of oral contrast. Moderate colonic diverticulosis without diverticulitis. No obstruction. PELVIS: APPENDIX: The appendix is not definitively identified. No secondary findings of acute appendicitis. BLADDER: Unremarkable. No stones. REPRODUCTIVE: Moderate prostatomegaly. CHEST, ABDOMEN and PELVIS: INTRAPERITONEAL SPACE: Unremarkable. No significant fluid collection. No free air. BONES/JOINTS: Scattered degenerative changes in the spine and pelvis. SOFT TISSUES: Surgical clips at the thoracic inlet. Tracheostomy defect again identified. VASCULATURE: Scattered vascular calcifications. Calcifications in the pelvis likely represent phleboliths. LYMPH NODES: Unremarkable. No enlarged lymph nodes. IMPRESSION: Chronic appearing findings. No acute process identified on this nonenhanced exam. Recommend short-term follow-up if symptoms persist. . 05:10 Data reviewed: vital signs, nurses notes, lab test result(s), electrolytes, hepatic sp4 panel, radiologic studies, CT scan. 05:27 Differential diagnosis: arthritis, strain, sciatica, contusion, Herniated disc UTI. sp4 Data reviewed: old medical records. Consideration of Admission/Observation Escalation of care including admission/observation considered. Management of patient was discussed with the following: Associate Professor Of Criminal Justice: [facility]. 05:55 ED course: HISTORY: [facility] MAIN vomiting, unable to keep food down Fluoroscopy Time: 4:19 sp4 minutes. Skin dose: 24.12 mGy IMPRESSION: Please see the speech pathology service report for details. Barium contrast of multiple consistencies was provided the patient orally by the speech pathology department. Fluoroscopic observation was performed during swallowing. The radiologist was not present for the examination. Provided images demonstrate no evidence for morgan subglottic tracheal aspiration. 01/02 23:23 Order name: CBC with Diff; Complete Time: 02:49 cp 01/03 02:49 Interpretation: Normal except: WBC 15.00; HGB 13.4; RDW 17.4; SELVIN% 81.6; LYM% 10.8; cp NEUT A 12.3. 01/02 23:23 Order name: CMP; Complete Time: 02:49 cp 01/02 23:23 Order name: Lipase; Complete Time: 02:49 cp 01/02 23:23 Order name: UA Rfx Abdoulaye Cult if indicated; Complete Time: 02:49 cp 01/03 02:50 Interpretation: Reviewed. cp 01/03 02:23 Order name: COVID-19 Ag + Flu A+B Ag; Complete Time: 05:09 cp 01/03 02:23 Order name: Magnesium; Complete Time: 05:09 cp 01/03 02:23 Order name: Troponin High Sensitivity; Complete Time: 05:09 cp 01/03 02:23 Order name: BNP; Complete Time: 05:09 cp 01/03 02:23 Order name: XRAY Chest (1 view); Complete Time: 02:05 cp 01/03 02:51 Order name: CT Chest Abdomen Pelvis W/O Contrast; Complete Time: 02:05 cp 01/02 23:23 Order name: IV Saline Lock; Complete Time: 02:18 cp 01/02 23:23 Order name: Labs collected and sent; Complete Time: 02:18 cp Administered Medications: 02:35 Drug: DuoNeb Nebulize (2.5 mg - 0.5 mg) 3 ml Nebulizer once Route: Nebulizer; tb4 04:19 Follow up: Response: No adverse reaction tb4 02:35 Drug: morphine IVP or IV 4 mg IVP once over 4 mins Route: IVP; Infused Over: 4 mins; tb4 Site: left antecubital; 04:17 Follow up: Response: No adverse reaction; Pain is decreased; RASS: Alert and Calm (0) tb4 02:35 Drug: Ondansetron IVP 4 mg IVP once; over 2 minutes Route: IVP; Site: left antecubital; tb4 04:17 Follow up: Response: No adverse reaction; Nausea is decreased tb4 03:40 CANCELLED (Physician Discretion): ns 0.9% 1000 ml IV at 1000 ml once; to be given as a cp bolus over 60 minutes 04:47 Drug: Ketorolac IVP 15 mg IVP once Route: IVP; Site: left antecubital; tb4 05:20 Follow up: Response: No adverse reaction; Pain is decreased tb4 05:56 Drug: NS 0.9% IV 1000 ml IV at 250 ml/hr once; to be given as a bolus over 60 minutes tb4 Route: IV; Rate: 250 ml/hr; Site: left antecubital; 06:36 Follow up: Response: No adverse reaction; IV Status: Completed infusion tb4 05:57 Drug: Ondansetron IVP 4 mg IVP once; over 2 minutes Route: IVP; Site: left antecubital; tb4 06:16 Follow up: Response: No adverse reaction; Nausea is decreased tb4 05:57 Drug: metoCLOPramide IVP 10 mg IVP once; over 1 to 2 minutes Route: IVP; Site: left tb4 antecubital; 06:15 Follow up: Response: No adverse reaction; Nausea is decreased tb4 06:00 Drug: Zithromax IVPB 500 mg IVPB once over 1 hrs; mix in 250 mL NS Route: IVPB; Infused tb4 Over: 1 hrs; Site: left antecubital; 06:36 Follow up: Response: No adverse reaction; IV Status: Completed infusion tb4 Disposition: 05:28 Co-signature as Attending Physician, Clarke Morris MD I agree with the assessment sp4 and plan of care. I reviewed the patient's care provided by Advanced Practice Provider \T\ agree w/ the diagnosis \T\ care plan. I personally saw the pt \T\ performed a substantive portion of the visit, incldng all aspects of the (History/Exam/Medical Decision Making). 01/04 02:06 Chart complete. sp4 Disposition Summary: 01/03/25 05:30 Transfer Ordered Notes: Transfer Location: [facility] sp4 Reason: Higher level of care sp4 Condition: Stable sp4 Problem: new sp4 Symptoms: have improved sp4 Accepting Physician: [facility](01/03/25 07:17) eb Diagnosis - Intractable vomiting, COPD exacerbation,, pulmonary fibrosis, history of sp4 tracheostomy laryngectomy with bacterial tracheitis Forms: - Medication Reconciliation Form sp4 - SBAR form sp4 Signatures: Dispatcher [employer] EDMS Ren Hooks PA-C PA-C cp Botello, Elizabeth eb Ayala, Heidy, JEAN RN ha1 Clarke Morris MD MD sp4 Marisa Uribe RN RN tb4 Corrections: (The following items were deleted from the chart) 01/03 03:40 03:39 NS 0.9% IV 1000 ml IV at 1000 ml once; to be given as a bolus over 60 minutes cp ordered. cp 07:17 05:30 [facility] sp4 eb
--- NOTE | 2025-01-03 05:30 | ER ---
Nurse's Notes [facility] Name: Akin Pugh Age: 54 yrs Sex: Male : 1970 Arrival Date: 01/02/2025 Time: 22:50 Bed 5 Private MD: Diagnosis: Intractable vomiting, COPD exacerbation,, pulmonary fibrosis, history of tracheostomy laryngectomy with bacterial tracheitis Presentation: 01/02 23:11 Chief complaint: Patient states: BLOOD IN THE URINE. STOMACH PAIN, NAUSEA, AND ha1 VOMITING. Coronavirus screen: Client denies travel out of the [place] in the last 14 days. Ebola Screen: No symptoms or risks identified at this time. Initial Sepsis Screen: Does the patient meet any 2 criteria? No. Patient's initial sepsis screen is negative. Does the patient have a suspected source of infection? No. Patient's initial sepsis screen is negative. Risk Assessment: Do you want to hurt yourself or someone else? Patient reports no desire to harm self or others. Onset of symptoms was January 02, 2025. 23:11 Method Of Arrival: Ambulatory ha1 23:11 Acuity: PAO 3 ha1 01/03 00:02 Note pt drinking Gatorade tolerating well. kl Triage Assessment: 01/02 23:13 General: Appears uncomfortable, Behavior is cooperative. Pain: Complains of pain in ha1 abdomen. Neuro: Level of Consciousness is awake, alert, obeys commands, Oriented to person, place, time, situation. Cardiovascular: Patient's skin is warm and dry. Respiratory: Reports Airway is patent Respiratory effort is even, unlabored, Respiratory pattern is regular, symmetrical. GI: Reports nausea, vomiting. Historical: - Allergies: 23:13 Ampicillin; ha1 23:13 Iodinated Contrast Media - IV Dye; ha1 23:13 Iodine; ha1 23:13 Levaquin; ha1 - PMHx: 23:13 Asthma; Congestive heart failure; COPD; Pancreatitis; THROAT CA; ha1 - PSHx: 23:13 Appendectomy; Cholecystectomy; Laryngectomy; tracheostomy; ha1 - Immunization history:: Adult Immunizations up to date. - Infectious Disease History:: Denies. - Social history:: Smoking status: Patient reports the use of cigarette tobacco products, smokes one pack cigarettes per day. - Family history:: not pertinent. Screenin/05 03:08 [facility] ED Fall Risk Assessment (Adult) History of falling in the last 3 months, tb4 including since admission No falls in past 3 months (0 pts) Confusion or Disorientation No (0 pts) Intoxicated or Sedated No (0 pts) Impaired Gait No (0 pts) Mobility Assist Device Used No (0 pt) Altered Elimination No (0 pt) Score/Fall Risk Level 0 - 2 = Low Risk Maintained a safe environment. Abuse screen: Denies threats or abuse. Denies injuries from another. Nutritional screening: No deficits noted. Tuberculosis screening: No symptoms or risk factors identified. Assessment: 03:08 General: Appears uncomfortable, Behavior is calm, cooperative. Pain: Complains of pain tb4 in abdomen Pain does not radiate. Pain currently is 8 out of 10 on a pain scale. Quality of pain is described as sharp, Pain began gradually, over two weeks. Neuro: Level of Consciousness is awake, alert, obeys commands, Oriented to person, place, time, situation, Phlebotomy Technologist are equal bilaterally Moves all extremities. Full function Gait is steady, Speech is normal, Facial symmetry appears normal. Respiratory: Airway Patient breath through a stoma Trachea Respiratory effort is even, Respiratory pattern is regular, symmetrical, Breath sounds with wheezes bilaterally. GI: Abdomen is round non-distended, Bowel sounds present X 4 quads. Reports nausea, vomiting. : No deficits noted. No signs and/or symptoms were reported regarding the genitourinary system. EENT: No deficits noted. No signs and/or symptoms were reported regarding the EENT system. Derm: No deficits noted. No signs and/or symptoms reported regarding the dermatologic system. Skin is intact, is healthy with good turgor, Skin is dry, Skin is normal. Musculoskeletal: Circulation, motion, and sensation intact. Range of motion: intact in all extremities. 06:38 Reassessment: Report called in to Annita PENA. Cardiovascular: Rhythm is regular. tb4 Vital Signs: 01/02 23:11 BP 134 / 87; Pulse 93; Resp 20 S; Temp 98.5; Pulse Ox 98% on R/A; Weight 79.38 kg; ha1 Height 5 ft. 11 in. ; 01/03 03:08 BP 139 / 75; Pulse 67; Resp 19; Pulse Ox 99% on R/A; Pain 7/10; tb4 04:00 BP 130 / 71; Pulse 92; Resp 16; Pulse Ox 98% on R/A; tb4 05:18 BP 115 / 64; Pulse 90; Resp 19; Pulse Ox 98% on R/A; tb4 06:01 BP 107 / 79; Pulse 74; Resp 19; Pulse Ox 100% on R/A; tb4 01/02 23:11 Body Mass Index 24.41 (79.38 kg, 180.34 cm) ha1 01/03 03:08 Pain Scale: Adult tb4 ED Course: 01/02 22:58 Patient arrived in ED. gm2 22:59 Ren Hooks PA-C is PHCP. cp 22:59 Clarke Morris MD is Attending Physician. cp 23:13 Triage completed. ha1 01/03 02:18 UA Rfx Abdoulaye Cult if indicated Sent. ha1 02:18 CMP Sent. ha1 02:18 Lipase Sent. ha1 02:18 Inserted saline lock: 20 gauge in left antecubital area, using aseptic technique. Blood ha1 collected. Flushed with 10 mL NS. 02:46 XRAY Chest (1 view) In Process Unspecified. EDMS 03:08 No provider procedures requiring assistance completed. Initial lab(s) drawn, by ED tb4 staff, sent to lab. 03:08 Patient has correct armband on for positive identification. Bed in low position. Call tb4 light in reach. Side rails up X 1. Client placed on continuous cardiac and pulse oximetry monitoring. NIBP monitoring applied. Pulse ox on. Door closed. Lights dimmed. 03:28 CT Chest Abdomen Pelvis W/O Contrast In Process Unspecified. EDMS 05:46 initiated transfer with [facility] spoke with Kaya. vk 06:24 patient was accepted to [facility] to Dr. Watson \T\[id number], accepting admin kaya g \T\[id number], little patient will go to [place] [id number], Report # [phone]. 06:28 EMS to transport. vk 06:30 Urine collected: clean catch specimen, clear, COVID swab sent to lab. CT scan. tb4 Administered Medications: 02:35 Drug: DuoNeb Nebulize (2.5 mg - 0.5 mg) 3 ml Nebulizer once Route: Nebulizer; tb4 04:19 Follow up: Response: No adverse reaction tb4 02:35 Drug: morphine IVP or IV 4 mg IVP once over 4 mins Route: IVP; Infused Over: 4 mins; tb4 Site: left antecubital; 04:17 Follow up: Response: No adverse reaction; Pain is decreased; RASS: Alert and Calm (0) tb4 02:35 Drug: Ondansetron IVP 4 mg IVP once; over 2 minutes Route: IVP; Site: left antecubital; tb4 04:17 Follow up: Response: No adverse reaction; Nausea is decreased tb4 03:40 CANCELLED (Physician Discretion): ns 0.9% 1000 ml IV at 1000 ml once; to be given as a cp bolus over 60 minutes 04:47 Drug: Ketorolac IVP 15 mg IVP once Route: IVP; Site: left antecubital; tb4 05:20 Follow up: Response: No adverse reaction; Pain is decreased tb4 05:56 Drug: NS 0.9% IV 1000 ml IV at 250 ml/hr once; to be given as a bolus over 60 minutes tb4 Route: IV; Rate: 250 ml/hr; Site: left antecubital; 06:36 Follow up: Response: No adverse reaction; IV Status: Completed infusion tb4 05:57 Drug: Ondansetron IVP 4 mg IVP once; over 2 minutes Route: IVP; Site: left antecubital; tb4 06:16 Follow up: Response: No adverse reaction; Nausea is decreased tb4 05:57 Drug: metoCLOPramide IVP 10 mg IVP once; over 1 to 2 minutes Route: IVP; Site: left tb4 antecubital; 06:15 Follow up: Response: No adverse reaction; Nausea is decreased tb4 06:00 Drug: Zithromax IVPB 500 mg IVPB once over 1 hrs; mix in 250 mL NS Route: IVPB; Infused tb4 Over: 1 hrs; Site: left antecubital; 06:36 Follow up: Response: No adverse reaction; IV Status: Completed infusion tb4 Medication: 03:08 VIS not applicable for this client. tb4 Outcome: 05:30 ER care complete, transfer ordered by sp4 07:17 Patient left the ED. eb Signatures: Dispatcher [employer] EDBibi Sebastian RN Ren Calderon PA-C PA-Tran Scott cp, Heidy, RN RN ha1 Clarke Morris MD MD 4 Luz Singh 2 Brisa Talavera Terri, RN RN tb4 Corrections: (The following items were deleted from the chart) 01/02 23:17 23:11 Pulse 93bpm; Resp 20bpm; Spontaneous; Pulse Ox 98% RA; Temp 98.5F; 79.38 kg; ha1 Height 5 ft. 11 in.; BMI: 24.4; ha1 01/03 06:03 04:00 BP 130 / 71; Pulse 92bpm; Resp 16bpm; Pulse Ox 94% 5 lpm Nasal Cannula; tb4 tb4 06:03 05:18 BP 115 / 64; Pulse 90bpm; Resp 19bpm; Pulse Ox 93% 5 lpm Nasal Cannula; tb4 tb4 06:03 06:00 BP 122 / 68; Pulse 72bpm; Resp 15bpm; Pulse Ox 95% 5 lpm Nasal Cannula; tb4 tb4 06:39 04:48 Reassessment: Patient just return from CT, was placed on a non-re breather at tb4 15L. Patient is now on nasal cannula at 5L, oxygen saturation between 92 and 95% tb4
--- NOTE | 2025-01-03 05:34 | RAD REPORT ---
EXAM: CT Chest, Abdomen and Pelvis Without Intravenous Contrast CLINICAL HISTORY: The patient is 54 years old and is Male; abdominal pain;SOB TECHNIQUE: Axial computed tomography images of the chest, abdomen and pelvis without intravenous contrast. S agittal and coronal reformatted images were created and reviewed. This CT exam was performed using one or more of the following dose reduction techniques: automated exposure control, adjustmen t of the mA and/or kV according to patient size, and/or use of iterative reconstruction technique. COMPARISON: Portable chest radiograph 01/03/2025. CT chest, abdomen and pelvis 12/21/2024. FINDINGS: ARTIFACTS: Some images are degraded by patient motion artifact. LIMITATIONS: Exam is limited due to absence of intravenous contrast. CHEST: LUNGS AND PLEURAL SPACES: Trace areas of scarring in the lungs. No new areas of consolidation. No significant effusion. No pneumothorax. HEART: Moderately advanced coronary artery calcification. No cardiomegaly. No significant per icardial effusion. ABDOMEN: LIVER: Unremarkable. GALLBLADDER AND BILE DUCTS: Cholecystectomy clips. No ductal dilation. PANCREAS: Unremarkable. No ductal dilation. SPLEEN: Unremarkable. No splenomegaly. ADRENALS: Unremarkable. No mass. KIDNEYS AND URETERS: Punctate nonobstructing right renal stones. STOMACH AND BOWEL: Assessment of bowel is somewhat limited by absence of oral contrast. Moderat e colonic diverticulosis without diverticulitis. No obstruction. PELVIS: APPENDIX: The appendix is not definitively identified. No secondary findings of acute appendiciti s. BLADDER: Unremarkable. No stones. REPRODUCTIVE: Moderate prostatomegaly. CHEST, ABDOMEN and PELVIS: INTRAPERITONEAL SPACE: Unremarkable. No significant fluid collection. No free air. BONES/JOINTS: Scattered degenerative changes in the spine and pelvis. SOFT TISSUES: Surgical clips at the thoracic inlet. Tracheostomy defect again identified. VASCULATURE: Scattered vascular calcifications. Calcifications in the pelvis likely represent p hleboliths. LYMPH NODES: Unremarkable. No enlarged lymph nodes. IMPRESSION: Chronic appearing findings. No acute process identified on this nonenhanced exam. Recommend short-ter m follow-up if symptoms persist. Electronically signed by: Shayne Brush MD 01/03/2025 04:03 AM CDT RP Due to temporary technical issues with the PACS/TranSiC reporting system, reports are being maryellen d by the in-house radiologist without review as a courtesy to ensure prompt reporting the interpreting radiologist is fully responsible for the content of the report. Transcribed Date/Time: 01/03/2025 5:34 AM
[2025-01-03] MEDS ORDERED: AZITHROMYCIN 500 MG INJ IVPB ONE (05:39)
[2025-01-03] MEDS ORDERED: METOCLOPRAMIDE 10 MG/2mL INJ ONE (05:39)
[2025-01-03] MEDS ORDERED: NA CHLORIDE 0.9% 250 ML ONE (05:40)
[2025-01-03] MEDS ORDERED: NA CHLORIDE 0.9% 1,000 ML ONE (05:40)
[2025-01-03 07:32] VITALS: TEMP 98.5
[2025-01-03 07:39] VITALS: BP 107/79; O2SAT 100
== END 2025-01-03 07:17 | disposition short-term general hospital (02) ==
LOC: ER 22:50
DX: R11.15 Cyclical vomiting syndrome unrelated to migraine (principal); J44.1 Chronic obstructive pulmonary disease with (acute) exacerbation; J84.10 Pulmonary fibrosis, unspecified; Z93.0 Tracheostomy status; R07.9 Chest pain, unspecified; I50.9 Heart failure, unspecified; F17.210 Nicotine dependence, cigarettes, uncomplicated; Z11.52 Encounter for screening for COVID-19
CPT/HCPCS: 96365; 85025; 36415; 83735; 81003; 84484; 83690; 80053; 83880; 71250; 74176; 71045; 96375; 99285; 87428; J1885; J0456; J2765; J7613; J7644; J2405 ×2; J7050; J7030